=== PATIENT | female | born 1995 | race African-American/Black ===

== ENCOUNTER 2019-02-05 13:54 | Emergency (ER) | payer SELFPAY ==
--- OUTSIDE RECORDS SUMMARY | 2019-02-05 13:57 | XMS REPORT ---
:1995 [facility] Address [facility] [address] [place] [address] Care Team Providers Name Role Phone Unavailable Unavailable Unavailable Problems This patient has no known problems. Allergies, Adverse Reactions, Alerts This patient has no known allergies or adverse reactions. Medications This patient has no known medications.
[2019-02-05] MEDS ORDERED: LORazepam 2 MG/ML VIAL ONE (14:32)
[2019-02-05] MEDS ORDERED: NA CHLORIDE 0.9% 1,000 ML ONE (14:32)
[2019-02-05 15:09] LABS: Absolute Lymphocytes (CBC) 1.7 K/uL (0.7-4.9); Absolute Monocytes 0.3 K/uL (0.1-1.3); Absolute Neutrophil 3.7 K/uL (1.8-8.0); Basophils % 0.8 % (0-1.3); Eosinophils % 3.2 % (0-4.4); Hematocrit 36.7 % (36.0-45.0); Lymphocytes % 28.1 % (15.3-44.8); MPV 9.4 fL (7.6-11.3); Monocytes % 5.6 % (3.3-12.3); RBC Red Blood Cell Count 4.56 M/uL (3.86-4.86)
[2019-02-05 15:18] LABS: BUN Blood Urea Nitrogen 9 mg/dL (7-18); Bicarbonate 26 mmol/L (21-32); Glucose Level 78 mg/dL (74-106); Potassium 3.7 mmol/L (3.5-5.1); Sodium Level 139 mmol/L (136-145)
--- NOTE | 2019-02-05 17:42 | ER ---
Nurse's Notes [facility] Name: Taylor Rodriguez Age: 23 yrs Sex: Female : 1995 Arrival Date: 02/05/2019 Time: 13:59 Bed 4 Private MD: Diagnosis: Anxiety disorder, unspecified Presentation: 02/05 13:59 Presenting complaint: EMS states: Toned out for fibromyalgia attack, responsive to hb painful stimuli, R40s. Family on scene reports when her pain gets bad she goes unresponsive for 45-60 minutes. Transition of care: patient was not received from another setting of care. Onset of symptoms was February 05, 2019. Risk Assessment: Do you want to hurt yourself or someone else? Patient reports no desire to harm self or others. Initial Sepsis Screen: Does the patient meet any 2 criteria? No. Patient's initial sepsis screen is negative. Does the patient have a suspected source of infection? No. Patient's initial sepsis screen is negative. Care prior to arrival: None. 13:59 Method Of Arrival: EMS: [facility] 13:59 Acuity: MILAN 3 hb Historical: - Allergies: 14:03 No Known Allergies; hb - Home Meds: 14:03 Trazodone Oral [Active]; Zyprexa Oral [Active]; hb - PMHx: 14:03 Depression; Anxiety; hb - PSHx: 14:03 None; hb - Immunization history:: Adult Immunizations up to date. - Social history:: Smoking status: Patient/guardian denies using tobacco. - Ebola Screening: : No symptoms or risks identified at this time. - Family history:: not pertinent. - Hospitalizations: : No recent hospitalization is reported. Screenin:15 Tuberculosis screening: No symptoms or risk factors identified. hb 14:30 Fall Risk Total Jarrett Fall Scale indicates High Risk Score (45 or more points). Fall hb prevention measures have been instituted. Side Rails Up X 2 Frequent Obs/Assessments Occuring Family Present and informed to notify staff if the need to leave the bedside As available patient and family educated on Fall Prevention Program and Strategies. 15:09 Abuse screen: Denies threats or abuse. Denies injuries from another. Nutritional hb screening: No deficits noted. Assessment: 14:15 General: Appears in no apparent distress. Behavior is calm, cooperative. Pain: Pain hb currently is 8 out of 10 on a pain scale. Neuro: Level of Consciousness is awake, obeys commands, Oriented to person, place, time, situation. Cardiovascular: Heart tones S1 S2 present Capillary refill < 3 seconds Patient's skin is warm and dry. Respiratory: Airway is patent Respiratory effort is even, unlabored, Respiratory pattern is regular, symmetrical, Breath sounds are clear bilaterally. GI: No signs and/or symptoms were reported involving the gastrointestinal system. : No signs and/or symptoms were reported regarding the genitourinary system. EENT: No signs and/or symptoms were reported regarding the EENT system. Derm: Skin is intact, is healthy with good turgor, Skin is pink, warm \T\ dry. Musculoskeletal: No signs and/or symptoms reported regarding the musculoskeletal system. 15:00 Reassessment: Patient appears in no apparent distress at this time. No changes from previously documented assessment. Patient and/or family updated on plan of care and expected duration. Pain level reassessed. 16:10 Reassessment: Patient appears in no apparent distress at this time. Patient and/or hb family updated on plan of care and expected duration. Pain level reassessed. Patient is alert, oriented x 3, equal unlabored respirations, skin warm/dry/pink. Patient states feeling better. Patient states symptoms have improved. 16:58 Reassessment: Patient appears in no apparent distress at this time. Patient and/or hb family updated on plan of care and expected duration. Pain level reassessed. Patient is alert, oriented x 3, equal unlabored respirations, skin warm/dry/pink. 17:33 Reassessment: Patient appears in no apparent distress at this time. Patient and/or hb family updated on plan of care and expected duration. Pain level reassessed. Patient is alert, oriented x 3, equal unlabored respirations, skin warm/dry/pink. Vital Signs: 14:02 BP 119 / 79; Pulse 86; Resp 36; Temp 97.8; Pulse Ox 100% on R/A; Pain 0/10; hb 15:00 BP 136 / 95; Pulse 78; Resp 15; Pulse Ox 98% on R/A; hb 15:30 BP 147 / 102; Pulse 81; Resp 14; Pulse Ox 100% ; rv 16:40 BP 129 / 95; Pulse 85; Resp 15; Pulse Ox 100% on R/A; hb 17:32 BP 132 / 96; Pulse 84; Resp 15; Pulse Ox 100% on R/A; hb 14:02 Kristie (FACES) hb ED Course: 13:59 Patient arrived in ED. hb 14:01 Triage completed. hb 14:02 Moses Bell MD is Attending Physician. rn 14:02 Arm band placed on. hb 14:10 Patient has correct armband on for positive identification. Placed in gown. Bed in low hb position. Call light in reach. Side rails up X2. 14:25 Missed attempt(s): 22 gauge in left antecubital area. Bleeding controlled, band aid hb applied, catheter tip intact. 14:30 Missed attempt(s): 24 gauge in left hand. Bleeding controlled, band aid applied, hb catheter tip intact. 14:49 Allison Mcneill, RN is Primary Nurse. hb 15:05 EKG done, by ED staff, reviewed by Moses Bell MD. jp3 17:32 Straight cath inserted, using sterile technique, 16 Fr. Specimen obtained. Returned hb clear yellow urine. Patient tolerated well. 18:04 No provider procedures requiring assistance completed. IV discontinued, intact, hb bleeding controlled, No redness/swelling at site. Pressure dressing applied. Administered Medications: 14:49 Drug: NS 0.9% 1000 ml Route: IV; Rate: 1000 ml; Site: left wrist; hb 16:02 Follow up: Response: No adverse reaction; IV Status: Completed infusion; IV Intake: hb 1000ml 14:50 Drug: Ativan 1 mg Route: IVP; Site: left wrist; hb 15:30 Follow up: Response: No adverse reaction hb Intake: 16:02 IV: 1000ml; Total: 1000ml. hb 17:32 PO: 0ml; Total: 1000ml. hb Output: 17:32 Urine: 500ml (Straight Cath); Total: 500ml. hb Outcome: 17:41 Discharge ordered by . rn 18:04 Discharged to home ambulatory, with family. hb 18:04 Condition: stable 18:04 Discharge instructions given to patient, Instructed on discharge instructions, follow up and referral plans. Demonstrated understanding of instructions, follow-up care. 18:05 Patient left the ED. hb Signatures: Moses Bell MD MD rn Baxter, Heather, RN RN hb Vicente, Ronaldo, RN RN rv Shilo Villasenor jp3
--- NOTE | 2019-02-05 17:42 | EDPHYS ---
Physician Documentation [facility] Name: Taylor Rodriguez Age: 23 yrs Sex: Female : 1995 Arrival Date: 02/05/2019 Time: 13:59 Bed 4 Private MD: ED Physician Moses Bell HPI: 02/05 14:33 This 23 yrs old Black Female presents to ER via EMS with complaints of Fibromyalgia rn attack. 14:33 The patient presents with decreased responsiveness. Onset: The symptoms/episode rn began/occurred today. Possible causes: unknown. Current symptoms: In the emergency department the patient's symptoms have improved. The patient has experienced similar episodes in the past. Patient with self reported "fibromyalgia attack", was laying at home minimally responsive, someone called for ambulance, responds to painful stimuli, no seizure like activity noted. 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 Patient woke up for me, reports "pain all over", and generalized weakness, has had diarrhea lately, no vomiting or fever. Denies overdose or drug use.. Historical: - Allergies: 14:03 No Known Allergies; hb - Home Meds: 14:03 Trazodone Oral [Active]; Zyprexa Oral [Active]; hb - PMHx: 14:03 Depression; Anxiety; hb - PSHx: 14:03 None; hb - Immunization history:: Adult Immunizations up to date. - Social history:: Smoking status: Patient/guardian denies using tobacco. - Ebola Screening: : No symptoms or risks identified at this time. - Family history:: not pertinent. - Hospitalizations: : No recent hospitalization is reported. ROS: 14:33 Constitutional: Negative for fever, chills, and weight loss, Eyes: Negative for injury, rn pain, redness, and discharge, Neck: Negative for injury, pain, and swelling, Cardiovascular: Negative for chest pain, palpitations, and edema, Respiratory: Negative for shortness of breath, cough, wheezing, and pleuritic chest pain, Abdomen/GI: Negative for abdominal pain, nausea, vomiting, and constipation, MS/Extremity: Negative for injury and deformity, Skin: Negative for injury, rash, and discoloration, Neuro: Negative for headache, numbness, tingling, and seizure. Exam: 14:37 Constitutional: Overweight female, laying in bed peacefully, eyes moving in rotary rn fashion, no specific pattern or nystagmus, able to focus on me on command. Head/Face: Normocephalic, atraumatic. Eyes: Pupils equal round and reactive to light, extra-ocular motions intact. Lids and lashes normal. Conjunctiva and sclera are non-icteric and not injected. Cornea within normal limits. Periorbital areas with no swelling, redness, or edema. ENT: dry MM, no stridor Neck: Trachea midline, no thyromegaly or masses palpated, and no cervical lymphadenopathy. Supple, full range of motion without nuchal rigidity, or vertebral point tenderness. No Meningismus. Cardiovascular: Regular rate and rhythm. No pulse deficits. Respiratory: Lungs have equal breath sounds bilaterally, clear to auscultation. No increased work of breathing, no retractions or nasal flaring. Abdomen/GI: soft, non-tender Skin: Warm, dry. Normal color with no rashes, no lesions, and no evidence of cellulitis. MS/ Extremity: Pulses equal, no cyanosis. Neurovascular intact. Full, normal range of motion. Equal circumference. Neuro: Awake and alert, GCS 15, oriented to person, place, time, and situation. Cranial nerves II-XII grossly intact. Motor strength 4/5 in all extremities. Sensory grossly intact. Vital Signs: 14:02 BP 119 / 79; Pulse 86; Resp 36; Temp 97.8; Pulse Ox 100% on R/A; Pain 0/10; hb 15:00 BP 136 / 95; Pulse 78; Resp 15; Pulse Ox 98% on R/A; hb 15:30 BP 147 / 102; Pulse 81; Resp 14; Pulse Ox 100% ; rv 16:40 BP 129 / 95; Pulse 85; Resp 15; Pulse Ox 100% on R/A; hb 17:32 BP 132 / 96; Pulse 84; Resp 15; Pulse Ox 100% on R/A; hb 14:02 Kristie (FACES) hb MDM: 14:02 Patient medically screened. rn 17:39 Differential Diagnosis: hypoglycemia, UTI, volume depletion. Differential Diagnosis: rn electrolyte abnormality, pseudoseizure, behavioral problems.. Data reviewed: vital signs, nurses notes. Counseling: I had a detailed discussion with the patient and/or guardian regarding: the historical points, exam findings, and any diagnostic results supporting the discharge/admit diagnosis, lab results, the need for outpatient follow up, to return to the emergency department if symptoms worsen or persist or if there are any questions or concerns that arise at home. Response to treatment: the patient's symptoms have markedly improved after treatment, the patient's condition has returned to base line, the patient is now symptom free, patient is well hydrated. and as a result, I will discharge patient. Special discussion: I discussed with the patient/guardian in detail that at this point there is no indication for admission to the hospital. It is understood, however, that if the symptoms persist or worsen the patient needs to return immediately for re-evaluation. Special discussion: Based on the history and exam findings, there is no indication for further emergent testing or inpatient evaluation. I discussed with the patient/guardian the need to see the psychiatrist for further evaluation of the symptoms. ED course: Patient back to baseline, wide awake, family here, states has these episodes frequently and they are in middle of looking for a psychiatrist. . 02/05 14:09 Order name: CBC with Diff; Complete Time: 15:42 02/05 14:09 Order name: Basic Metabolic Panel; Complete Time: 15:42 02/05 14:09 Order name: Urine Microscopic Only 02/05 17:45 Order name: Urine Dipstick--Ancillary (enter results) 02/05 17:45 Order name: Urine --Ancillary (enter results) 02/05 14:09 Order name: IV Start; Complete Time: 15:05 rn 02/05 14:09 Order name: Urine Test (obtain specimen); Complete Time: 17:31 rn 02/05 14:09 Order name: Urine Dipstick-Ancillary (obtain specimen); Complete Time: 17:32 rn 02/05 14:09 Order name: EKG; Complete Time: 14:10 rn 02/05 14:09 Order name: EKG - Nurse/Tech; Complete Time: 15:05 rn 02/05 17:31 Order name: Straight Cath - Urine; Complete Time: 17:31 hb Administered Medications: 14:49 Drug: NS 0.9% 1000 ml Route: IV; Rate: 1000 ml; Site: left wrist; hb 16:02 Follow up: Response: No adverse reaction; IV Status: Completed infusion; IV Intake: hb 1000ml 14:50 Drug: Ativan 1 mg Route: IVP; Site: left wrist; hb 15:30 Follow up: Response: No adverse reaction hb Disposition: 02/05/19 17:41 Discharged to Home. Impression: Anxiety disorder, unspecified. - Condition is Stable. - Discharge Instructions: Myofascial Pain Syndrome and Fibromyalgia. - Medication Reconciliation Form, Thank You Letter, Antibiotic Education, Prescription Opioid Use form. - Follow up: Private Physician; When: As needed; Reason: Recheck today's complaints, Re-evaluation by your physician. - Problem is chronic. - Symptoms have improved. Signatures: Dispatcher [employer] EDMS Moses Bell MD MD rn Baxter, Heather, RN RN Corrections: (The following items were deleted from the chart) 14:39 14:37 Constitutional: Overweight female, laying in bed peacefully, eyes moving in rn rotary fashion, no specific pattern or nystagmus, able to focus on me on command. Head/Face: Normocephalic, atraumatic. Eyes: Pupils equal round and reactive to light, extra-ocular motions intact. Lids and lashes normal. Conjunctiva and sclera are non-icteric and not injected. Cornea within normal limits. Periorbital areas with no swelling, redness, or edema. ENT: dry MM, no stridor Neck: Trachea midline, no thyromegaly or masses palpated, and no cervical lymphadenopathy. Supple, full range of motion without nuchal rigidity, or vertebral point tenderness. No Meningismus. Cardiovascular: Regular rate and rhythm. No pulse deficits. Respiratory: Lungs have equal breath sounds bilaterally, clear to auscultation. No increased work of breathing, no retractions or nasal flaring. Abdomen/GI: soft, non-tender Skin: Warm, dry with normal turgor. Normal color with no rashes, no lesions, and no evidence of cellulitis. MS/ Extremity: Pulses equal, no cyanosis. Neurovascular intact. Full, normal range of motion. Equal circumference. Neuro: Awake and alert, GCS 15, oriented to person, place, time, and situation. Cranial nerves II-XII grossly intact. Motor strength 5/5 in all extremities. Sensory grossly intact. rn 18:05 17:41 02/05/2019 17:41 Discharged to Home. Impression: Anxiety disorder, unspecified. hb Condition is Stable. Forms are Medication Reconciliation Form, Thank You Letter, Antibiotic Education, Prescription Opioid Use. Follow up: Private Physician; When: As needed; Reason: Recheck today's complaints, Re-evaluation by your physician. Problem is chronic. Symptoms have improved. rn
[2019-02-05 18:30] VITALS: TEMP 97.8
[2019-02-05 18:33] VITALS: O2SAT 100
[2019-02-05 18:35] LABS: Urine Blood NEGATIVE (NEG); Urine Glucose NEGATIVE (NEG); Urine Protein NEGATIVE (NEG)
[2019-02-05 19:02] LABS: Urine Bacteria <20 /HPF (<20); Urine Culture Reflex Order NOT NEEDED; Urine Mucus SLIGHT /HPF (NONE SEEN); Urine RBC NONE SEEN /HPF (NONE SEEN)
[2019-02-05 23:37] VITALS: BP 132/96
--- NOTE | 2019-02-06 07:56 | EKG ---
Test Date: 2019-02-05 Test Time: 14:59:23 Chief Information Officer: RACHEAL MEASUREMENT RESULTS: Intervals: Rate: 81 ME: 156 QRSD: 84 QT: 392 QTc: 455 [place]: P: 30 ME: 156 QRS: 52 T: 7 INTERPRETIVE STATEMENTS: Normal sinus rhythm Normal ECG Compared to ECG 03/02/2017 19:23:42 No significant changes Electronically Signed On 02-06-19 07:52:59 CDT by Abraham Quiñones
== END 2019-02-05 18:05 | disposition home or self-care (01) ==
LOC: ER 13:54
DX: F41.9 Anxiety disorder, unspecified (principal)
CPT/HCPCS: 36415; 51702; 80048; 81003; 81015; 81025; 85025; 93005; 96361; 96374; 99284; J7030

== ENCOUNTER 2020-04-17 17:58 | Emergency (ER) | payer SELFPAY ==
--- OUTSIDE RECORDS SUMMARY | 2020-04-17 18:00 | XMS REPORT | Summary of Care ---
:1995 Author Organization [facility] Address [address] [place] [id number] Care Team Providers Name Role Phone JERRY Jansen Primary Care Provider Reason for Visit Reason Comments Results Encounter Details Date Type Department Care Team Description 02/14/2020 Telephone [facility] Cardiology- Shayla Monroe MD Results [place] [facility] [address] [facility], [address] [place] [address] [place] [address] [phone] Allergies Active Allergy Reactions Severity Noted Date Comments Naproxen Nausea and/or Vomiting 04/28/2019 documented as of this encounter (statuses as of 02/20/2020) Medications Medication Sig Dispensed Refills Start Date End Date Status DULOXETINE HCL (CYMBALTA Take 60 mg by 0 Active ORAL) mouth 3 (three) times daily. VITAMIN B COMPLEX ORAL Take by 0 Active mouth. aripiprazole (ABILIFY Take 5 mg by 0 Active ORAL) mouth 2 (two) times daily. traZODONE 100 mg tablet Take 100 mg 0 Active by mouth at bedtime. benztropine 1 mg tablet Take 1 mg by 0 Active mouth daily. ARIPiprazole 10 mg tablet Take 10 mg by 0 Active mouth 2 (two) times daily. hydroCHLOROthiazide 25 mg Take 1 tablet 30 tablet 5 09/29/2019 Active tabletIndications: by mouth Essential hypertension, daily. Bilateral lower extremity edema meloxicam 15 mg Take 1 tablet 30 tablet 5 09/29/2019 Active tabletIndications: by mouth Chronic pain syndrome daily. pregabalin (LYRICA) 150 Take 1 180 capsule 3 09/29/2019 Active mg capsuleIndications: capsule by Chronic pain syndrome mouth 2 (two) times daily. metoprolol succinate XL Take 1 tablet 60 tablet 2 10/24/2019 Active 50 mg 24 hr by mouth tabletIndications: daily. 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 COVID-19 Exposure Response Date Recorded In the last month, have you been in contact with No / Unsure 02/10/2020 8:58 AM CDT someone who was confirmed or suspected to have Coronavirus / COVID-19? documented as of this encounter Last Filed Vital Signs Not on filedocumented in this encounter Plan of Treatment Date Type Specialty Care Team Description 04/24/2020 Office Visit Gastroenterology Annemarie Valladares, ACNP [address] [facility] [address] [place] [address] [phone] Health Maintenance Due Date Last Done Comments VARICELLA VACCINES (1 of 2 - 1994 2-dose childhood series) DTaP,Tdap,and Td Vaccines (1 - 2004 Tdap) HPV VACCINES (1 - Female 2-dose 2004 series) PAP SMEAR 2014 Depression Screening 09/29/2020 09/29/2019 INFLUENZA VACCINE (Season Ended) 2020 Postponed from 05/01/2020 (Refused) PNEUMOCOCCAL 0-64 YEARS COMBINED Aged Out No longer eligible based on SERIES patient's age to complete this topic documented as of this encounter Goals Goal Patient Goal Associated Recent Patient-Stated? Author Type Problems Progress To get better General Yes Maranda Sullivan, PT documented as of this encounter Results Not on filedocumented in this encounter Insurance Payer Benefit Plan Subscriber ID Effective Phone Address Typ e / Group Dates ROSY GALLEGOS [id number] 2016-Pres [phone] [facility] [address] [place] [address] [place] [place] [id number] 2016-Prese [phone] [facility] [address] [place] [address] [place] [place] [id number] 2020-Prese [phone] [facility] [address] [place] [address] documented as of this encounter
--- OUTSIDE RECORDS SUMMARY | 2020-04-17 18:00 | XMS REPORT | Summary of Care ---
:1995 Author Organization [facility] - [facility] Address [address] [place] [address] Care Team Providers Name Role Phone JERRY Jansen Primary Care Provider Reason for Visit Reason Comments Follow-up (Routine) Status Reason Specialty Diagnoses / Procedures Referred By C ontact Referred To Contact Closed Cardiology Diagnoses Palpitations Essential hypertension Tachycardia Morbid obesity Kalani Jansen FNP Procedures CONSULT/REFERRAL CARDIOLOGY [address] [place], [place] [address] Phone: Encounter Details Date Type Department Care Team Description 01/24/2020 Telemedicine Visit [facility] Dannie Monroe Essenti al hypertension (Primary Dx); Cardiology- MD Palpitations; [address] Morbid obesity [address] [facility], [address] [place] [address] [phone] Allergies Active Allergy Reactions Severity Noted Date Comments Naproxen Nausea and/or Vomiting 04/28/2019 documented as of this encounter (statuses as of 01/24/2020) Medications Medication Sig Dispensed Refills Start Date [...] as of this encounter (statuses as of 01/24/2020) Active Problems Problem Noted Date PTSD (post-traumatic stress disorder) 08/19/2018 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 documented as of this encounter Last Filed Vital Signs Not on filedocumented in this encounter Progress Notes Dannie Monroe MD - 01/24/2020 10:40 AM CDT CARDIOLOGY CLINIC NOTE 01/24/2020 Reason for Referral/Presenting Complaint: palpitations PCP: Kalani Jansen History of Present Illness: Taylor Rodriguez is a 24 years old female with history of morbid obesity and HTN. She has been having episodes of palpitations for over a year which has worsened recently. She woke up a few days ago with fast heart beat lasting 10 mins. Mild chest pain. Milder palpitations have beenoccurring about once a month. Some dizziness. Those episodes are abrupt onset with gradual offset. TSH was low in 2018. Last visit we increased Toprol XL to 50 mg daily. She has brief episodes of palpitations lasting seconds. Sometimes feels anxious. ECHO was not done yet. Cardiovascular testing: EKG: Normal sinus rhythm. Normal EKG. Review of Systems: General: (-) fever, (-) chills, (-) weight change, (-) dizziness, (-) fatigue Skin: (-) rash HEENT: (-) headache, (-) change in vision Neck: (-) difficulty swallowing Heme: negative Resp: (-) cough, (-) dyspnea on exertion Cardio: (-) chest pain, (+) palpitations, (-) syncope GI: (-) vomiting, (-) diarrhea : negative Endo: (-) diabetes, (-) thyroid disease Neuro: (-) numbness, (-) tingling, (-) weakness Back: (-) pain ROCHELLE: (-) muscle pain, (-) claudication Psych: (-) anxiety, (-) depression Past Medical History: Past Medical History: Diagnosis Date Depression Manic depression Schizophrenia Current Medications: Current Outpatient Medications Medication Sig Dispense Refill metoprolol succinate XL 50 mg 24 hr tablet Take 1 tablet by mouth daily. 60 tablet 2 hydroCHLOROthiazide 25 mg tablet Take 1 tablet by mouth daily. 30 tablet 5 meloxicam 15 mg tablet Take 1 tablet by mouth daily. 30 tablet 5 pregabalin (LYRICA) 150 mg capsule Take 1 capsule by mouth 2 (two) times daily. 180 capsule 3 ARIPiprazole 10 mg tablet Take 10 mg by mouth 2 (two) times daily. benztropine 1 mg tablet Take 1 mg by mouth daily. traZODONE 100 mg tablet Take 100 mg by mouth at bedtime. aripiprazole (ABILIFY ORAL) Take 5 mg by mouth 2 (two) times daily. DULOXETINE HCL (CYMBALTA ORAL) Take 60 mg by mouth 3 (three) times daily. VITAMIN B COMPLEX ORAL Take by mouth. No current facility-administered medications for this visit. Social History: Social History Socioeconomic History Marital status: Single Spouse name: Not on file Number of children: Not on file Years of education: Not on file Highest education level: Not on file Occupational History Not on file Social Needs Financial resource strain: Not on file Food insecurity: Worry: Not on file Inability: Not on file Transportation needs: Medical: Not on file Non-medical: Not on file Tobacco Use Smoking status: Former Smoker Years: 5.00 Types: Cigarettes Smokeless tobacco: Never Used Tobacco comment: Quit smoking/vaping earlier this year Substance and Sexual Activity Alcohol use: Yes Alcohol/week: 0.0 standard drinks Comment: drnk liquor or beer a lot recently Drug use: No Sexual activity: Not on file Lifestyle Physical activity: Days per week: Not on file Minutes per session: Not on file Stress: Not on file Relationships Social connections: Talks on phone: Not on file Gets together: Not on file Attends druze service: Not on file Active member of club or organization: Not on file Attends meetings of clubs or organizations: Not on file Relationship status: Not on file Intimate partner violence: Fear of current or ex partner: Not on file Emotionally abused: Not on file Physically abused: Not on file Forced sexual activity: Not on file Other Topics Concern Not on file Social History Narrative Not on file Family History No family history on file. Physical Examination: Constitutional: Alert and in no distress Respiratory: Breathing comfortably Neurology: Answers questions appropriately Assessment/Plan: ICD-10-CM ICD-9-CM 1. Essential hypertension I10 401.9 2. Palpitations R00.2 785.1 3. Morbid obesity E66.01 278.01 Palpitations--due to insurance limitations, cannot get Heart monitor. We increased metoprolol XL to 50 mg daily. Seems better controlled. Avoid caffeine/alcohol. Will get ECHO to assess structural heart disease. HTN--well controlled with HCTZ and metoprolol. Low salt diet. Morbid obesity--suspect MADHAV but cannot afford sleep study. Advised to lose weight. Patient was counseled for lifestyle modifications including: diet, exercise and weight loss. Telehealth service ? Verbal consent obtained from patient Taylor Lexi Rodriguez for telehealth sevice provided ? My location: [facility] cardiology clinic ? Patient location: Home ? Format: Communication with patient was conducted via Telephone due to patient unable to obtain video call option--Doximity video call link sent ? A total of 15 minutes spent on the telephone with the patient/chart review/documentation Dannie Monroe MD, FACC, [place] Dispatcher Service Or Work, Division of Cardiology [facility] documented in this encounter Plan of Treatment Date Type Specialty Care Team Description 04/24/2020 Office Visit Gastroenterology Annemarie Valladares, [facility] [address] [facility] [address] [place] [address] [phone] Health Maintenance Due Date Last Done Comments VARICELLA VACCINES (1 of 2 - 1994 2-dose childhood series) DTaP,Tdap,and Td Vaccines (1 - 2004 Tdap) HPV VACCINES (1 - Female 2-dose 2004 series) PAP SMEAR 2014 INFLUENZA VACCINE (Season Ended) 2020 Postponed from 05/01/2020 (Refused) PNEUMOCOCCAL 0-64 YEARS COMBINED Aged Out No longer eligible based on SERIES patient's age to complete this topic documented as of this encounter Goals Goal Patient Goal Associated Recent Patient-Stated? Author Type Problems Progress To get better General Yes Maranda Sullivan, PT documented as of this encounter Results Not on filedocumented in this encounter Visit Diagnoses Diagnosis Essential hypertension - Primary Unspecified essential hypertension Palpitations Morbid obesity documented in this encounter Insurance Payer Benefit Plan Subscriber ID Effective Phone Address Typ e / Group Dates [place] [id number] 2016-Martina [phone] [facility] [address] [place] [address] documented as of this encounter
--- OUTSIDE RECORDS SUMMARY | 2020-04-17 18:00 | XMS REPORT | Continuity of Care Document ---
:1995 Author Organization [facility] t Address [address] [place] [address] Care Team Providers Name Role Phone Care, Primary Attending Clinician Unavailable Doctor Unassigned, Name Attending Clinician Unavailable Problems This patient has no known problems. Allergies, Adverse Reactions, Alerts This patient has no known allergies or adverse reactions. Medications This patient has no known medications. Procedures This patient has no known procedures. Encounters Start End Encounter Admission Attending Care Care Encounter Source Date/Time Date/Time Type Type Clinicians Facility Department ID 2020-03-08 2020-03-20 Office Care, Aries GALLEGOS [id number] 10:02:59 09:15:53 Visit [facility] [id number] [facility] [id number] UNIT [id number] 2020-03-08 2020-03-08 Orders Doctor PRIETO [id number] 00:00:00 00:00:00 Only Unassigned, [place] [id number] Howard [facility] [id number] Results This patient has no known results.
--- OUTSIDE RECORDS SUMMARY | 2020-04-17 18:00 | XMS REPORT | Summary of Care ---
:1995 Author Organization [facility] - [facility] Address [address] [place] [address] Care Team Providers Name Role Phone JERRY Jansen Primary Care Provider Encounter Details Date Type Department Care Team Description 02/10/2020 Orders Only [facility] Doctor Unassigned, No [address] [facility] [place] [address] [address] [place] [id number] Allergies Active Allergy Reactions Severity Noted Date Comments Naproxen Nausea and/or Vomiting 04/28/2019 documented as of this encounter (statuses as of 02/10/2020) Medications Medication Sig Dispensed Refills Start Date [...] as of this encounter (statuses as of 02/10/2020) Active Problems Problem Noted Date PTSD (post-traumatic stress disorder) 08/19/2018 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/2017 Pain 06/11/2017 Fine motor impairment 06/11/2017 Conversion disorder 05/14/2017 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 documented as of this encounter (statuses as of 02/10/2020) Social History Tobacco Use Types Packs/Day Years Used Date Former Smoker Cigarettes 5 Smokeless Tobacco: Never Used Comments: Quit smoking/vaping earlier th is year Alcohol Use Drinks/Week oz/Week Comments [...] Treatment Date Type Specialty Care Team Description 02/10/2020 Appointment Echocardiograph Pc, Adc Echo-Vascular Sofia m 1 - 04/24/2020 Office Visit Gastroenterology Annemarie Valladares, ACNP [address] [facility] [address] [place] [address] [phone] Health Maintenance Due Date Last Done Comments [...] Sullivan, PT documented as of this encounter Procedures Procedure Name Priority Date/Time Associated Diagnosis Comme nts ASSIGNMENT OF BENEFITS Routine 02/10/2020 8:57 AM CDT documented in this encounter Results Not on filedocumented in this encounter Insurance Payer Benefit Plan Subscriber ID Effective Phone Address Typ e / Group Dates ROSY GALLEGOS [id number] 2016-Pres [phone] [facility] [address] [place] [address] [place] [id number] 2016-Prese [phone] [facility] [address] [place] [address] [place] [id number] 2020-Prese [phone] [facility] [address] [place] [address] documented as of this encounter
--- OUTSIDE RECORDS SUMMARY | 2020-04-17 18:01 | XMS REPORT | Summary of Care ---
:1995 Author Organization [facility] Address [address] [place] [address] Care Team Providers Name Role Phone JERRY Jansen Primary Care Provider Reason for Visit Reason Comments Lab Results Encounter Details Date Type Department Care Team Description 03/13/2020 Telephone [facility] Kalani Ambrocio FNP Lab Results [facility] 301 [facility] 260 [facility], [facility] [address] [place] [address] [place] [address] Allergies Active Allergy Reactions Severity Noted Date Comments Naproxen Nausea and/or Vomiting 04/28/2019 documented as of this encounter (statuses as of 03/13/2020) Medications Medication Sig Dispensed Refills Start Date [...] 0 Active mouth 2 (two) times daily. meloxicam 15 mg Take 1 tablet 30 tablet 5 09/29/2019 Active tabletIndications: by mouth Chronic pain syndrome daily. pregabalin (LYRICA) 150 Take 1 180 capsule 3 09/29/2019 Active mg capsuleIndications: capsule by Chronic pain syndrome mouth 2 (two) times daily. metoprolol succinate XL Take 1 tablet 60 tablet 2 03/08/2020 Active 50 mg 24 hr by mouth tabletIndications: daily. Essential hypertension, Tachycardia hydroCHLOROthiazide 25 mg Take 1 tablet 30 tablet 5 03/08/2020 Active tabletIndications: by mouth Essential hypertension, daily. Bilateral lower extremity edema baclofen 10 mg Take 1 tablet 60 tablet 2 03/08/2020 Active tabletIndications: by mouth 3 Derangement of left knee (three) times daily as needed for Pain (scale 4-6). 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 documented as of this encounter Last Filed Vital Signs Not on filedocumented in this encounter Plan of Treatment Date Type Specialty Care Team Description 04/24/2020 Office Visit Gastroenterology Annemarie Valladares, YAAKOV [address] [facility] [address] [place] [address] [phone] Health Maintenance Due Date Last Done Comments VARICELLA VACCINES (1 of 2 - 1994 2-dose childhood series) DTaP,Tdap,and Td Vaccines (1 - 2004 Tdap) HPV VACCINES (1 - Female 2-dose 2004 series) PAP SMEAR 2014 Depression Screening 09/29/2020 09/29/2019 INFLUENZA VACCINE (#1) 2020 Postponed from 05/01/2020 (Refused) PNEUMOCOCCAL 0-64 [...] Typ e / Group Dates ROSY GALLEGOS [id number] 2016-Pres [phone] [facility]IMARY CARE PRIMARY CARE ent [address] [place] [address] [place] [id number] 2016-Prese [phone] [facility] [address] [facility] [address] [place] [address] [place] [id number] 2020-Prese [phone] [facility] [address] [facility] [address] [place] [address] documented as of this encounter
--- OUTSIDE RECORDS SUMMARY | 2020-04-17 18:01 | XMS REPORT | Summary of Care ---
:1995 Author Organization [facility] Address [address] [place], [place] [address] Care Team Providers Name Role Phone JERRY Jansen Primary Care Provider Reason for Referral (Routine) Status Reason Specialty Diagnoses / Procedures Referred By Gracia weir To Contact Contact New Request Gastroenterology Diagnoses Lower abdominal pain Kalani Jansen, Procedures CONSULT/REFERRAL GASTROENTEROLOGY [place] [phone] Reason for Visit Reason Comments Referral/consult Encounter Details Date Type Department Care Team Description 02/29/2020 [facility]phone [facility] Ref[facility]/consult [address] [place] [address] [place] [address] [phone] Allergies Active Allergy Reactions Severity Noted Date Comments Naproxen Nausea and/or Vomiting 04/28/2019 documented as of this encounter (statuses as of 02/29/2020) Medications Medication Sig Dispensed Refills Start Date [...] as of this encounter (statuses as of 02/29/2020) Active Problems Problem Noted Date PTSD (post-traumatic stress disorder) 08/19/2018 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/2017 Pain 06/11/2017 Fine motor impairment 06/11/2017 Conversion disorder 05/14/2017 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 documented as of this encounter (statuses as of 02/29/2020) Social History Tobacco Use Types Packs/Day Years [...] 04/24/2020 Office Visit Gastroenterology Annemarie Valladares, ACNP [address] [facility] [address] [place] [address] [phone] Health Maintenance Due Date Last Done Comments [...] filedocumented in this encounter Visit Diagnoses Diagnosis Lower abdominal pain - Primary Abdominal pain, other specified site documented in this encounter Insurance Payer Benefit Plan Subscriber ID Effective Phone Address Typ e / Group Dates ROSY GALLEGOS [id number] 2016-Pres [phone] [facility] PRIMARY CARE ent [address] [place] [address] [place] [id number] 2016-Prese [phone] [facility] [address] [place] [address] [place] [id number] 2020-Prese [phone] [facility] [address] [facility] [address] [place] [address] documented as of this encounter
--- OUTSIDE RECORDS SUMMARY | 2020-04-17 18:01 | XMS REPORT | Summary of Care ---
:1995 Author Organization [facility] Address [address] [place] [address] Care Team Providers Name Role Phone JERRY Jansen Primary Care Provider Reason for Visit Reason Comments Lab Results Encounter Details Date Type Department Care Team Description 03/13/2020 Telephone [facility] Kalani Ambrocio FNP Lab Results 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 [id number] 2016-Prese [phone] [facility] [address] [facility] [address] [place] [address] [place] [id number] 2020-Prese [phone] [facility] [address] [facility] [address] [place] [address] documented as of this encounter
--- OUTSIDE RECORDS SUMMARY | 2020-04-17 18:01 | XMS REPORT | Summary of Care ---
:1995 Author Organization [facility] Address [address] [place] [address] Care Team Providers Name Role Phone JERRY Jansen Primary Care Provider Reason for Referral (Routine) Status Reason Specialty Diagnoses / Referred By Referred To Procedures Contact Contact New Request Orthopedic Surgery Diagnoses Derangement of left knee Adhesive capsulitis of left shoulder Kalani Jansen, Procedures CONSULT/REFERRAL ORTHOPAEDIC SURGERY CONSULT/REFERRAL ORTHOPAEDIC SURGERY [facility] [address] [place] [address] Radiology Services (Routine) Status Reason Specialty Diagnoses / Referred By Referred To Procedures Contact Contact New Request Diagnostic Diagnoses Derangement of left knee Kalani Jansen, Radiology Procedures XR KNEE 3 VW LEFT [facility] [address] [place] [address] Reason for Visit Reason Comments Chest Pain Knee Pain Bilateral (L>R) Shoulder Pain Left Encounter Details Date Type Department Care Team Description 03/08/2020 Office Visit [facility] Kalani De Souza , NEWS CAMERA PERSON [address] [place], [place] [address] Derangement of left knee (Primary Dx); [facility] Primary Adhesive capsulitis of left shoulder; Clinic Essential hypertension; [address] Tachycardia; [place], [place] Bilateral lower extremity edema [id number] Allergies Active Allergy Reactions Severity Noted Date Comments Naproxen Nausea and/or Vomiting 04/28/2019 documented as of this encounter (statuses as of 03/08/2020) Medications Medication Sig Dispensed Refills Start End Status Date Date DULOXETINE HCL Take 60 mg 0 Acti ve (CYMBALTA ORAL) by mouth 3 (three) times daily. VITAMIN B COMPLEX ORAL Take by 0 Active mouth. aripiprazole (ABILIFY Take 5 mg 0 Active ORAL) by mouth 2 (two) times daily. traZODONE 100 mg tablet Take 100 mg 0 Active by mouth at bedtime. benztropine 1 mg tablet Take 1 mg 0 Active by mouth daily. ARIPiprazole 10 mg Take 10 mg 0 Active tablet by mouth 2 (two) times daily. meloxicam 15 mg Take 1 30 tablet 5 Acti ve tabletIndications: tablet by 0 Chronic pain syndrome mouth daily. pregabalin (LYRICA) 150 Take 1 180 capsule 3 Active mg capsuleIndications: capsule by 0 Chronic pain syndrome mouth 2 (two) times daily. metoprolol succinate XL Take 1 60 tablet 2 Active 50 mg 24 hr tablet by 0 tabletIndications: mouth Essential hypertension, daily. Tachycardia hydroCHLOROthiazide 25 Take 1 30 tablet 5 Active mg tabletIndications: tablet by 0 Essential hypertension, mouth Bilateral lower daily. extremity edema baclofen 10 mg Take 1 60 tablet 2 Activ e tabletIndications: tablet by 0 Derangement of left mouth 3 knee (three) times daily as needed for Pain (scale 4-6). hydroCHLOROthiazide 25 Take 1 30 tablet 5 Discontinued mg tabletIndications: tablet by 0 020 (Reorder) Essential hypertension, mouth Bilateral lower daily. extremity edema metoprolol succinate XL Take 1 60 tablet 2 Discontinued 50 mg 24 hr tablet by 0 020 (Reorder ) tabletIndications: mouth Essential hypertension, daily. 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 documented as of this encounter (statuses as of 03/08/2020) Social History Tobacco Use Types Packs/Day Years [...] of this encounter Last Filed Vital Signs Vital Sign Reading Time Taken Comments Blood Pressure 108/69 03/08/2020 10:04 AM CDT Pulse 74 03/08/2020 10:04 AM CDT Temperature 36.6 C (97.9 F) 03/08/2020 10:04 AM CDT Respiratory Rate 20 03/08/2020 10:04 AM CDT Oxygen Saturation - - Inhaled Oxygen Concentration - - Weight 112.6 kg (248 lb 3.2 oz) 03/08/2020 10:04 AM CDT Height 160 cm (5' 3") 03/08/2020 10:04 AM CDT Body Mass Index 43.97 03/08/2020 10:04 AM CDT documented in this encounter Progress Notes Kalani Jansen FNP - 03/08/2020 10:00 AM CDT Cc: Chief Complaint Patient presents with Chest Pain Knee Pain Left Shoulder Pain Left HPI Taylor Lexi Rodriguez is a 24 year old female in clinic today needing refills on her medications and complaining of left shoulder and knee pain post fall x2 over the last couple of weeks. On the last fall, she dropped the pizza she was putting in the oven, contusing the left shoulder. Has history of both shoulder and knee pain with previous steroid injection to the left knee in 2018 and PT for theleft shoulder and knee in late 2018. Still having intermittent sternal pain which is sharp and transient lasting from a few seconds to a couple of minutes. Usually occurs when she is reaching out to push or pull something. Seen by Dr Monroe in [facility] in October this year. ECHO and EKG was normal. Palpitations are under control with the BB. B/P 100/69 with rate of 74 bpm today in clinic. Peripheral swelling controlled. Is now working 9 hours at a shift, 3 days a wk, which is a great improvement from 3 hours a shift 2-3 days a week. Over all much more alert and able to give a good history Denies fevers or chills. Allergies Taylor is allergic to naproxen. Medications Outpatient Medications Prior to Visit Medication Sig Dispense Refill metoprolol succinate XL [...] B COMPLEX ORAL Take by mouth. No facility-administered medications prior to visit. Histories Past Medical History: Diagnosis Date Depression Manic depression Schizophrenia No past surgical history on file. Social History Socioeconomic History Marital status: Single [...] file Gets together: Not on file Attends gnosticist service: Not on file Active member of [...] file Social History Narrative Not on file No family history on file. Review of Systems Constitutional: Negative. Eyes: Negative. Cardiovascular: Positive for chest pain. Negative for palpitations and leg swelling. Genitourinary: Negative. Musculoskeletal: Positive for arthralgias, back pain and gait problem. Skin: Negative. Psychiatric/Behavioral: Negative. Vital Signs BP 108/69 (BP Location: Left arm, Patient Position: Sitting) | Pulse 74 | Temp 36.6 C (97.9 F)(Oral) | Resp 20 | Ht 5' 3" (1.6 m) | Wt 248 lb 3.2 oz (112.6 kg) | BMI 43.97 kg/m Physical Exam Constitutional: She is oriented to person, place, and time. She appears well- developed and well-nourished. No distress. Cardiovascular: Normal rate, regular rhythm and normal heart sounds. Pulmonary/Chest: Effort normal and breath sounds normal. Musculoskeletal: Left shoulder: She exhibits decreased range of motion and tenderness. She exhibits no crepitus and no deformity. Left knee: She exhibits decreased range of motion. Tenderness found. Lateral joint line tenderness noted. Neurological: She is alert and oriented to person, place, and time. Skin: Skin is dry and intact. Psychiatric: Her speech is normal and behavior is normal. Judgment and thought content normal. Cognition and memory are normal. Nursing note and vitals reviewed. Assessment/Plan 1. Derangement of left knee - XR KNEE 3 VW LEFT; Future - baclofen 10 mg tablet; Take 1 tablet by mouth 3 (three) times daily as needed for Pain (scale 4-6). Dispense: 60 tablet; Refill: 2 - CONSULT/REFERRAL ORTHOPAEDIC SURGERY 2. Adhesive capsulitis of left shoulder - CONSULT/REFERRAL ORTHOPAEDIC SURGERY 3. Essential hypertension - metoprolol succinate XL 50 mg 24 hr tablet; Take 1 tablet by mouth daily. Dispense: 60 tablet; Refill: 2 - hydroCHLOROthiazide 25 mg tablet; Take 1 tablet by mouth daily. Dispense: 30 tablet; Refill: 5 4. Tachycardia - metoprolol succinate XL 50 mg 24 hr tablet; Take 1 tablet by mouth daily. Dispense: 60 tablet; Refill: 2 5. Bilateral lower extremity edema - hydroCHLOROthiazide 25 mg tablet; Take 1 tablet by mouth daily. Dispense: 30 tablet; Refill: 5 Fasting labs done CBC, CMP, A1C, TSH, VIT D, CRP Follow up 6 months or prn Appropriate plan of care, desired health behaviors, goals and medications discussed with patient andeducational resources and self-management tools provided, as applicable. Patient/family/guardian voice understanding. Barriers to adherence: none Ability to manage care: Good As necessary, prescribed medications and potential significant medication side effects or medicationinteractions were discussed with the patient and pt will let me know if any occur. Call or return to clinic prn if these symptoms worsen or fail to improve as anticipated. Call or report to ER if symptoms should symptoms progress or worsen. AVS reviewed and given to patient at conclusion of visit. The patient indicates understanding of these issues and agrees with the plan. Kalani [facility] . Lolly Guerrero LVN - 03/08/2020 10:00 AM CDTChstan Lexi Rodriguez is a 24 year old female Patient here today for chest pain, left knee/ shoulder pain. Reports 8 pain on scale 0/10, MD notified. Reviewed medications and allergies with patient today. Fall Risk Assessment/Screening performed with patient today and patient is at risk for falls. documented in this encounter Plan of Treatment Date Type Specialty Care Team Description 04/24/2020 Office Visit Gastroenterology Annemarie Valladares ACNP [address] [facility] [address] [place] [address] [phone] Name Type Priority Associated Diagnoses Order S chedule XR KNEE 3 VW LEFT IMAGING Routine Derangement of left kne e Expected: 03/08/2020, Expires: 2020 Health Maintenance Due Date Last Done Comments [...] filedocumented in this encounter Visit Diagnoses Diagnosis Derangement of left knee - Primary Unspecified internal derangement of knee Adhesive capsulitis of left shoulder Adhesive capsulitis of shoulder Essential hypertension Unspecified essential hypertension Tachycardia Tachycardia, unspecified Bilateral lower extremity edema Edema documented in this encounter Insurance Payer Benefit Plan / Subscriber ID Effective Phone Address T e Group Dates ROSY GALLEGOS [id number] 2016-Pres [phone] [facility] PRIMARY CARE ent [address] [place] [address] documented as of this encounter
--- OUTSIDE RECORDS SUMMARY | 2020-04-17 18:01 | XMS REPORT | Summary of Care ---
:1995 Author Organization [facility] Address [address] [place] [address] Care Team Providers Name Role Phone JERRY Jansen Primary Care Provider Reason for Referral (Routine) Status Reason Specialty Diagnoses / Referred By Referred To Procedures Contact Contact New Request Orthopedic Surgery Diagnoses Derangement of left knee Adhesive capsulitis of left shoulder Kalani Jansen, Procedures CONSULT/REFERRAL ORTHOPAEDIC SURGERY CONSULT/REFERRAL ORTHOPAEDIC SURGERY [facility] [address] [place] [address] Radiology Services (Routine) Status Reason Specialty Diagnoses / Referred By Referred To Procedures Contact Contact New Request Diagnostic Diagnoses Derangement of left knee Kalani Jansen, Radiology Procedures XR KNEE 3 VW LEFT [facility] [address] [place] [address] Reason for Visit Reason Comments Chest Pain Knee Pain Bilateral (L>R) Shoulder Pain Left Encounter Details Date Type Department Care Team Description 03/08/2020 Office Visit [facility] Kalani De Souza , SUCTION PLATE CARRIER CLEANER [address] [place], [place] [address] Derangement of left knee (Primary Dx); [facility] Primary Adhesive capsulitis of left shoulder; Clinic Essential hypertension; [address] Tachycardia; [place] Bilateral lower extremity edema [id number] Allergies [...] (post-traumatic stress disorder) 08/19/2018 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 Kalani [facility] . Lolly Guerrero LVN - [...] Office Visit Gastroenterology Annemarie Valladares ACNP [address] [facility] [address] [place] [address] [phone] Name Type Priority Associated Diagnoses Order S [...] Address T e Group Dates ROSY GALLEGOS [id number] 2016-Pres [phone] PRIMARY CARE PRIMARY CARE ent [address] [place] [address] documented as of this encounter
--- OUTSIDE RECORDS SUMMARY | 2020-04-17 18:01 | XMS REPORT | Summary of Care ---
:1995 Author Organization [facility] Address [address] [place] [address] Care Team Providers Name Role Phone JERRY Jansen Primary Care Provider Reason for Referral (Routine) Status Reason Specialty Diagnoses / Referred By Referred To Procedures Contact Contact New Request Orthopedic Surgery Diagnoses Derangement of left knee Adhesive capsulitis of left shoulder Kalani Jansen, Procedures CONSULT/REFERRAL ORTHOPAEDIC SURGERY CONSULT/REFERRAL ORTHOPAEDIC SURGERY [facility] [address] [place] [address] Radiology Services (Routine) Status Reason Specialty Diagnoses / Referred By Referred To Procedures Contact Contact New Request Diagnostic Diagnoses Derangement of left knee Kalani Jansen, Radiology Procedures XR KNEE [address] [facility] [address] [place] [address] Reason for Visit Reason Comments Chest Pain Knee Pain Bilateral (L>R) Shoulder Pain Left Encounter Details Date Type Department Care Team Description 03/08/2020 Office Visit [facility] Kalani De Souza , FLUORESCENT LAMP REPLACER [address] [place], [place] [address] Derangement of left knee (Primary Dx); [facility] Primary Adhesive capsulitis of left shoulder; Clinic Essential hypertension; [address] Tachycardia; [place], [place] Bilateral lower extremity edema [id number] Allergies Active [...] (post-traumatic stress disorder) 08/19/2018 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 Kalani [facility] . Lolly Guerrero LVN - 03/08/2020 10:00 [...] Office Visit Gastroenterology Annemarie Valladares ACNP [address] [facility] [address] [place] [address] [phone] Name Type Priority Associated Diagnoses Order S [...] Address T e Group Dates ROSY GALLEGOS [id number] 2016-Pres [phone] PRIMARY CARE PRIMARY CARE ent [address] [place] [address] documented as of this encounter
--- OUTSIDE RECORDS SUMMARY | 2020-04-17 18:02 | XMS REPORT | Summary of Care ---
:1995 Author Organization [facility] - Health Address [address] [place] [address] Care Team Providers Name Role Phone JERRY Jansen Primary Care Provider Encounter Details Date Type Department Care Team Description 03/08/2020 Orders Only [facility] Doctor Unassigned, No [address] [facility] [place] [address] [address] [place] [id number] Allergies Active Allergy Reactions Severity Noted Date Comments Naproxen Nausea and/or Vomiting 04/28/2019 documented as of this encounter (statuses as of 03/30/2020) Medications Medication Sig Dispensed Refills Start Date [...] as of this encounter (statuses as of 03/30/2020) Active Problems Problem Noted Date PTSD (post-traumatic stress disorder) 08/19/2018 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/2017 Pain 06/11/2017 Fine motor impairment 06/11/2017 Conversion disorder 05/14/2017 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 documented as of this encounter (statuses as of 03/30/2020) Social History Tobacco Use Types Packs/Day Years [...] Description 04/24/2020 Office Visit Gastroenterology Annemarie Valladares, ACN [address] [facility] [address] [place] [address] [phone] 05/01/2020 Office Visit Orthopedic Surgery Siddharth Jackson MD [address] [place], [place] [address] Health Maintenance Due Date Last Done Comments [...] Name Priority Date/Time Associated Diagnosis Comme nts SCANNED LAB RESULTS Routine 03/08/2020 12:01 AM CDT documented in this encounter Results SCANNED LAB RESULTS (03/08/2020 12:01 AM CDT) Specimen Performing Organization Address City/State/Zipcode Phone Number HIM documented in this encounter Insurance Payer Benefit Plan Subscriber ID Effective Phone Address Typ e / Group Dates ROSY GALLEGOS [id number] 2016-Pres [phone] PRIMARY CARE PRIMARY CARE ent [address] [place] [address] [place] [id number] 2016-Prese [phone] [facility] [address] [place] [address] [place] [id number] 2020-Prese [phone] [facility] [address] [place] [address] documented as of this encounter
--- OUTSIDE RECORDS SUMMARY | 2020-04-17 18:02 | XMS REPORT | Summary of Care ---
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 [address] [place] [address] (Routine) Status Reason Specialty Diagnoses / Referred By Referred To Procedures Contact Contact New Request Orthopedic Surgery Diagnoses Derangement of left knee Adhesive capsulitis of left shoulder Kalani Jansen, Procedures CONSULT/REFERRAL ORTHOPAEDIC SURGERY CONSULT/REFERRAL ORTHOPAEDIC SURGERY TEACHER ADVISOR [address] [place] [address] Radiology Services (Routine) Status Reason Specialty Diagnoses / Referred By Referred To Procedures Contact Contact Closed Diagnostic Diagnoses Derangement of left knee Derangement of left knee Kalani Jansen FNP Radiology Procedures XR KNEE 3 VW LEFT XR KNEE 3 VW LEFT [address] [place] [address] Reason for Visit Reason Comments Chest Pain Knee Pain Bilateral (L>R) Shoulder Pain Left Encounter Details Date Type Department Care Team Description 03/08/2020 Office Visit [facility] Kalani Jansen FNP [address] [place], [place] [id number] Derangement of left knee (Primary Dx); [facility] Primary Adhesive capsulitis of left shoulder; Clinic Essential hypertension; [address] Tachycardia; [place], [place] Bilateral lower extremity edema [phone] Allergies Active Allergy Reactions Severity Noted Date Comments Naproxen Nausea and/or Vomiting 04/28/2019 documented as of this encounter (statuses as of 03/20/2020) Medications Medication Sig Dispensed Refills Start End [...] as of this encounter (statuses as of 03/20/2020) Active Problems Problem Noted Date PTSD (post-traumatic stress disorder) 08/19/2018 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 Still having intermittent sternal pain which is [...] file Gets together: Not on file Attends oriental orthodox service: Not on file Active member of [...] issues and agrees with the plan. Kalani [facility] . Lolly Guerrero LVN - 03/08/2020 10:00 AM CDTCharity Lexi Rodriguez is a 24 year old [...] Description 04/24/2020 Office Visit Gastroenterology Annemarie Valladares, VIJAYP [address] [facility] [address] [place] [address] [phone] Name Type Priority Associated Diagnoses Order S chedule MR KNEE LEFT WO IMAGING Routine Derangement of left knee Expected: 03/20/2020, CONTRAST Expires: 2020 Health Maintenance Due Date Last [...] PT documented as of this encounter Results XR KNEE 3 VW LEFT (03/16/2020 8:13 AM CDT) Specimen Impressions Performed At PACS/VR/DOSE Large effusion. No fracture. Narrative Performed At EXAM: PACS/VR/DOSE XR KNEE 3 VW LEFT HISTORY: new onset of instablity left knee with 2 falls in last 4 wks COMPARISON: None FINDINGS: Imaging of the left knee demonstrates a moderate sized effusion. Alignment is maintained. There is mild depression of the medial tibial plateau on the PA view. No fracture is appreciated. Procedure Note [facility], Radiant Results Inft User - 2019 8:48 AM CDT EXAM: XR KNEE 3 VW LEFT HISTORY: new onset of instablity left knee with 2 falls in last 4 wks COMPARISON: None FINDINGS: Imaging of the left knee demonstrates a moderate sized effusion. Alignment is maintained. There is mild depression of the medial tibial plateau on the PA view. No fracture is appreciated. IMPRESSION Large effusion. No fracture. Performing Organization Address City/State/Zipcode Phone Number PACS/VR/DOSE documented in this encounter Visit Diagnoses Diagnosis Derangement of left knee - Primary Unspecified internal derangement of knee Adhesive capsulitis of left shoulder Adhesive capsulitis of shoulder Essential hypertension Unspecified essential hypertension Tachycardia Tachycardia, unspecified Bilateral lower extremity edema Edema documented in this encounter Insurance Payer Benefit Plan / Subscriber ID Effective Phone Address T ype Group Dates ROSY ROSY [id number] 2016-Pres [phone] PRIMARY CARE PRIMARY CARE ent [address] [place] [address] documented as of this encounter
--- OUTSIDE RECORDS SUMMARY | 2020-04-17 18:02 | XMS REPORT | Summary of Care ---
:1995 Author Organization [facility] Address [address] [place] [id number] Care Team Providers Name Role Phone JERRY Jansen Primary Care Provider Reason for Referral Radiology Services (Routine) Status Reason Specialty Diagnoses / Referred By Referred To Procedures Contact Contact Closed Diagnostic Diagnoses Derangement of left knee Derangement of left knee Kalani Jansen FNP Radiology Procedures XR KNEE 3 VW LEFT XR KNEE 3 VW LEFT [address] [place] [address] Reason for Visit Radiology Services (Routine) Status Reason Specialty Diagnoses / Referred By Referred To Procedures Contact Contact Closed Diagnostic Diagnoses Derangement of left knee Derangement of left knee Kalani Jansen FNP Radiology Procedures XR KNEE 3 VW LEFT XR KNEE 3 VW LEFT [address] [place] [address] Encounter Details Date Type Department Care Team Description 03/16/2020 Hospital Encounter [facility] Marely De Souza FNP Arrived [place] [facility] [address] [place] [address] [phone] Allergies Active Allergy Reactions Severity Noted Date Comments Naproxen Nausea and/or Vomiting 04/28/2019 documented as of this encounter (statuses as of 03/17/2020) Medications Medication Sig Dispensed Refills Start Date [...] as of this encounter (statuses as of 03/17/2020) Active Problems Problem Noted Date PTSD (post-traumatic stress disorder) 08/19/2018 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 Pain 06/11/2017 Fine motor impairment 06/11/2017 Conversion disorder 05/14/2017 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 documented as of this encounter (statuses as of 03/17/2020) Social History Tobacco Use Types Packs/Day Years Used Date Former Smoker Cigarettes 5 Smokeless Tobacco: Never Used Comments: Quit smoking/vaping earlier year Alcohol Use Drinks/Week oz/Week Comments Yes [...] Office Visit Gastroenterology Annemarie Valladares, VIJAYP [address] [facility] [address] [place] [address] [phone] Health Maintenance Due Date Last Done Comments [...] Name Priority Date/Time Associated Diagnosis Comme nts XR KNEE 3 VW LEFT Routine 03/16/2020 8:13 AM Derangement of l eft Results for this CDT knee procedure are i n the results section. documented in this encounter Results XR KNEE 3 VW [...] Visit Diagnoses Diagnosis Derangement of left knee Unspecified internal derangement of knee documented in this encounter Insurance Payer Benefit Plan Subscriber ID Effective Phone Address Typ e / Group Dates [employer] [place] [employer] [place] [id number] 2020-Prese [phone] [facility] [address] [place] [id number] documented as of this encounter
--- OUTSIDE RECORDS SUMMARY | 2020-04-17 18:02 | XMS REPORT | Summary of Care ---
:1995 Author Organization [facility] Address [address] [place] [address] Care Team Providers Name Role Phone JERRY Jansen Primary Care Provider Reason for Visit Reason Comments Lab Results Encounter Details Date Type Department Care Team Description 03/13/2020 Telephone [facility] Kalani Ambrocio FNP Lab Results [facility] 301 [facility] 260 [facility], [facility] [address] [place] [address] [place] [address] Allergies Active Allergy Reactions Severity Noted Date Comments Naproxen Nausea and/or Vomiting 04/28/2019 documented as of this encounter (statuses as of 03/14/2020) Medications Medication Sig Dispensed Refills Start Date [...] as of this encounter (statuses as of 03/14/2020) Active Problems Problem Noted Date PTSD (post-traumatic stress disorder) 08/19/2018 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 [place] [employer] [id number] 2016-Prese [phone] [facility] [address] [facility] [address] [place] [address] [place] [place] [id number] 2020-Prese [phone] [facility] [address] [facility] [address] [place] [address] documented as of this encounter
--- NOTE | 2020-04-17 19:55 | EDPHYS ---
Physician Documentation [facility] Name: Taylor Rodriguez Age: 25 yrs Sex: Female : 1995 Arrival Date: 04/17/2020 Time: 18:00 Bed 16 Private MD: ED Physician Stan Pollard HPI: 04/17 19:49 This 25 yrs old Black Female presents to ER via Wheelchair with complaints of Ankle pkl Injury. 19:49 The patient presents with an injury, pain, that is acute, swelling. The complaints pkl affect the right ankle. Onset: The symptoms/episode began/occurred today. Associated signs and symptoms: The patient has no apparent associated signs or symptoms. 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 - Social history:: Smoking status: Patient denies any tobacco usage or history of. ROS: 19:49 Eyes: Negative for injury, pain, redness, and discharge, ENT: Negative for injury, pkl pain, and discharge, Neck: Negative for injury, pain, and swelling, Cardiovascular: Negative for chest pain, palpitations, and edema, Respiratory: Negative for shortness of breath, cough, wheezing, and pleuritic chest pain, Abdomen/GI: Negative for abdominal pain, nausea, vomiting, diarrhea, and constipation, Back: Negative for injury and pain, : Negative for injury, bleeding, discharge, and swelling. 19:49 MS/extremity: Positive for pain, swelling, tenderness, of the right ankle. 19:49 Skin: Negative for rash. 19:49 Neuro: Negative for altered mental status. Exam: 19:49 Head/Face: Normocephalic, atraumatic. Eyes: Pupils equal round and reactive to light, pkl extra-ocular motions intact. Lids and lashes normal. Conjunctiva and sclera are non-icteric and not injected. Cornea within normal limits. Periorbital areas with no swelling, redness, or edema. ENT: Nares patent. No nasal discharge, no septal abnormalities noted. Tympanic membranes are normal and external auditory canals are clear. Oropharynx with no redness, swelling, or masses, exudates, or evidence of obstruction, uvula midline. Mucous membranes moist. Neck: Trachea midline, no thyromegaly or masses palpated, and no cervical lymphadenopathy. Supple, full range of motion without nuchal rigidity, or vertebral point tenderness. No Meningismus. Chest/axilla: Normal chest wall appearance and motion. Nontender with no deformity. No lesions are appreciated. Cardiovascular: Regular rate and rhythm with a normal S1 and S2. No gallops, murmurs, or rubs. Normal PMI, no JVD. No pulse deficits. Respiratory: Lungs have equal breath sounds bilaterally, clear to auscultation and percussion. No rales, rhonchi or wheezes noted. No increased work of breathing, no retractions or nasal flaring. Abdomen/GI: Soft, non-tender, with normal bowel sounds. No distension or tympany. No guarding or rebound. No evidence of tenderness throughout. Back: No spinal tenderness. No costovertebral tenderness. Full range of motion. Skin: Warm, dry with normal turgor. Normal color with no rashes, no lesions, and no evidence of cellulitis. Neuro: Awake and alert, GCS 15, oriented to person, place, time, and situation. Cranial nerves II-XII grossly intact. Motor strength 5/5 in all extremities. Sensory grossly intact. Cerebellar exam normal. Normal gait. 19:49 Musculoskeletal/extremity: Extremities: grossly normal except: noted in the right ankle: pain, swelling, tenderness. Vital Signs: 18:34 BP 134 / 72; Pulse 82; Resp 16; Temp 97.1; Pulse Ox 100% on R/A; Weight 108.41 kg; iw Height 5 ft. 3 in. (160.02 cm); Pain 8/10; 20:30 BP 128 / 78; Pulse 80; Resp 18; Temp 98; Pulse Ox 100% on R/A; mg2 18:34 Body Mass Index 42.34 (108.41 kg, 160.02 cm) iw Procedures: 19:49 Splinting: Splint applied to right ankle applied by tech. Examined by me, post splint pkl application: 2+ distal pulses palpable, Patient tolerated well. MDM: 19:38 Patient medically screened. pkl 19:49 Data reviewed: vital signs, nurses notes, radiologic studies, plain films. ED course: pkl Discussed X' rays result with patient. Advised to follow up with PCP in 2 to 3 days. Patient understood instructions. 04/17 18:36 Order name: Ankle Right 3 View XRAY; Complete Time: 01:27 iw 04/17 19:49 Order name: Splint - Ankle: Posterior; Complete Time: 20:33 pkl 04/17 19:49 Order name: Crutches; Complete Time: 20:33 pkl Administered Medications: 20:08 Drug: [place] 5 mg-325 mg 1 tabs Route: PO; mg2 20:33 Follow up: Response: No adverse reaction; RASS: Alert and Calm (0) mg2 Disposition: 04/17/20 19:55 Discharged to Home. Impression: Sprain right ankle. - Condition is Stable. - Prescriptions for Ultram 50 mg Oral Tablet - take 1 tablet by ORAL route every 8 hours As needed; 15 tablet. - Work release form, Medication Reconciliation Form, Thank You Letter, Antibiotic Education, Prescription Opioid Use form. - Follow up: Private Physician; When: 2 - 3 days; Reason: Re-evaluation by your physician. - Problem is new. - Symptoms have improved. Signatures: Dispatcher [employer] EDMS Stan Pollard MD MD pkl Yumiko Ellis RN RN Haresh Burger RN RN mg2 Elba Arriaza RN RN mt2 Corrections: (The following items were deleted from the chart) 20:53 19:55 04/17/2020 19:55 Discharged to Home. Impression: Sprain right ankle. Condition is mt2 Stable. Forms are Medication Reconciliation Form, Thank You Letter, Antibiotic Education, Prescription Opioid Use. Follow up: Private Physician; When: 2 - 3 days; Reason: Re-evaluation by your physician. Problem is new. Symptoms have improved. pkl
--- NOTE | 2020-04-17 19:55 | ER ---
Nurse's Notes [facility] Name: Taylor Rodriguez Age: 25 yrs Sex: Female : 1995 Arrival Date: 04/17/2020 Time: 18:00 Bed 16 Private MD: Diagnosis: Sprain right ankle Presentation: 04/17 18:32 Chief complaint: Patient states: missed bottom of stairs and rolled her right ankle, iw then went to work and twisted it again. Coronavirus screen: At this time, the client does not indicate any symptoms associated with coronavirus-19. Ebola Screen: Patient negative for fever greater than or equal to 101.5 degrees Fahrenheit, and additional compatible Ebola Virus Disease symptoms Patient denies exposure to infectious person. Patient denies travel to an Ebola-affected area in the 21 days before illness onset. No symptoms or risks identified at this time. Initial Sepsis Screen: Does the patient meet any 2 criteria? No. Patient's initial sepsis screen is negative. Does the patient have a suspected source of infection? No. Patient's initial sepsis screen is negative. Risk Assessment: Do you want to hurt yourself or someone else? Patient reports no desire to harm self or others. Onset of symptoms was April 17, 2020. 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 - Social history:: Smoking status: Patient denies any tobacco usage or history of. Screenin:34 Abuse screen: Denies threats or abuse. Denies injuries from another. Nutritional mg2 screening: No deficits noted. Tuberculosis screening: No symptoms or risk factors identified. Fall Risk No fall in past 12 months (0 pts). Gait- Impaired (20 pts.). Assessment: 19:30 General: Appears in no apparent distress. comfortable, Behavior is calm, cooperative. mg2 Pain: Complains of pain in right foot. 19:30 Neuro: Level of Consciousness is awake, alert, obeys commands, Oriented to person, mg2 place, time, situation. Cardiovascular: Capillary refill < 3 seconds Patient's skin is warm and dry. Respiratory: Airway is patent Respiratory effort is even, unlabored, Respiratory pattern is regular, symmetrical. GI: No signs and/or symptoms were reported involving the gastrointestinal system. : No signs and/or symptoms were reported regarding the genitourinary system. EENT: No signs and/or symptoms were reported regarding the EENT system. Derm: Skin is intact, is healthy with good turgor, Skin is pink, warm \T\ dry. normal. Musculoskeletal: Circulation, motion, and sensation intact. Capillary refill < 3 seconds, Swelling present in right foot. Vital Signs: 18:34 BP 134 / 72; Pulse 82; Resp 16; Temp 97.1; Pulse Ox 100% on R/A; Weight 108.41 kg; iw Height 5 ft. 3 in. (160.02 cm); Pain 8/10; 20:30 BP 128 / 78; Pulse 80; Resp 18; Temp 98; Pulse Ox 100% on R/A; mg2 18:34 Body Mass Index 42.34 (108.41 kg, 160.02 cm) iw ED Course: 18:00 Patient arrived in ED. ds1 18:33 Triage completed. iw 18:35 Arm band placed on. iw 19:09 Haresh Burger, RN is Primary Nurse. mg2 19:38 Stan Pollard MD is Attending Physician. pkl 19:50 Ankle Right 3 View XRAY In Process Unspecified. EDMS 20:35 No provider procedures requiring assistance completed. Patient did not have IV access mg2 during this emergency room visit. Crutch training done. Orthoglass splint: Posterior short lleg splint applied on right leg. applied ZACH Jaime and checked by provider prior to dc. 20:36 Patient has correct armband on for positive identification. mg2 Administered Medications: 20:08 Drug: [place] 5 mg-325 mg 1 tabs Route: PO; mg2 20:33 Follow up: Response: No adverse reaction; RASS: Alert and Calm (0) mg2 Outcome: 19:55 Discharge ordered by . tati 20:36 Discharged to home with crutches. mg2 20:36 Condition: stable 20:36 Discharge instructions given to patient, Instructed on discharge instructions, follow up and referral plans. medication usage, Demonstrated understanding of instructions, follow-up care, medications, crutch walking, Prescriptions given X 1. 20:53 Patient left the ED. mt2 Signatures: Dispatcher [employer] EDMS Stan Pollard MD MD pkl Sanford, Demi ds1 Yumiko Ellis RN RN iw Haresh Burger RN RN mg2 Elba Arriaza RN RN mt2
--- NOTE | 2020-04-17 20:11 | RAD REPORT ---
EXAM DESCRIPTION: RAD - Ankle Right 3 View - 04/17/2020 7:50 pm CLINICAL HISTORY: Right ankle pain FINDINGS: No fracture or dislocation is seen. Soft tissue swelling
[2020-04-17] MEDS ORDERED: HYDROCODONE/APAP 5/325 MG TAB ONE (20:14)
[2020-04-17 23:03] VITALS: O2SAT 100
[2020-04-17 23:04] VITALS: BP 128/78; TEMP 98
== END 2020-04-17 20:53 | disposition home or self-care (01) ==
LOC: ER 17:58
DX: S93.401A Sprain of unspecified ligament of right ankle, initial encounter (principal); X58.XXXA Exposure to other specified factors, initial encounter; Y93.9 Activity, unspecified; Y92.9 Unspecified place or not applicable; Z88.6 Allergy status to analgesic agent; F20.9 Schizophrenia, unspecified

== ENCOUNTER 2020-12-25 19:44 | Emergency (ER) | payer SELFPAY ==
--- OUTSIDE RECORDS SUMMARY | 2020-12-25 19:47 | XMS REPORT | Continuity of Care Document ---
:1995 Author Organization [facility] t Address [address] [place] [address] Care Team Providers Name Role Phone Inderjit RODRIGUEZP Attending Clinician Doctor Unassigned, Name Attending Clinician Unavailable Jessica Hsieh MD Attending Clinician Problems This patient has no known problems. Allergies, Adverse Reactions, Alerts This patient has no known allergies or adverse reactions. Medications This patient has no known medications. Procedures This patient has no known procedures. Encounters Start End Encounter Admission Attending Care Care Encounter Source Date/Time Date/Time Type Type Clinicians Facility Department ID 2020-10-23 2020-10-23 Telephone Kalani Jansen [id number] 00:00:00 00:00:00 [facility] [id number] HEALTH [id number] UNIT [id number] 2020-09-27 2020-09-27 Orders Doctor CONNER [id number] 00:00:00 00:00:00 Only Unassigned, [place] [id number] [place] [facility] [id number] 2020-09-20 2020-09-20 Telephone DENNIS Hsieh [id number] 00:00:00 00:00:00 [facility] [id number] Surgical [id number] Specialti [id number] 2020-09-07 2020-09-07 Office Jori [facility] [id number] 09:03:53 09:52:26 Visit [facility] [id number] Surgical [id number] Specialti [id number] rosanne [address] Results This patient has no known results.
--- NOTE | 2020-12-25 21:05 | RAD REPORT ---
EXAM DESCRIPTION: RAD - Forearm Right - 12/25/2020 9:00 pm CLINICAL HISTORY: Right arm pain FINDINGS: No fracture is seen. No bony lesion is displayed
--- NOTE | 2020-12-25 21:45 | EDPHYS ---
Physician Documentation [facility] Name: Taylor Rodriguez Age: 25 yrs Sex: Female : 1995 Arrival Date: 12/25/2020 Time: 19:45 Bed 18 Private MD: ED Physician Moses Bell HPI: 12/25 21:50 This 25 yrs old Black Female presents to ER via Ambulatory with complaints of Wrist jr8 Injury. 21:50 Onset: The symptoms/episode began/occurred gradually, 2 day(s) ago. Modifying factors: jr8 The symptoms are alleviated by nothing, the symptoms are aggravated by movement. Associated signs and symptoms: The patient has no apparent associated signs or symptoms. The patient has not experienced similar symptoms in the past. The patient has not recently seen a physician. Patient stated that she has persistent weakness to right arm but now having pain to right wrist and forearm. Denies trauma. Wakes up from sleeping with pain . 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 - Social history:: Smoking status: Reported history of juuling and/or vaping. ROS: 21:50 Eyes: Negative for injury, pain, redness, and discharge, ENT: Negative for injury, jr8 pain, and discharge, Neck: Negative for injury, pain, and swelling, Cardiovascular: Negative for chest pain, palpitations, and edema, Respiratory: Negative for shortness of breath, cough, wheezing, and pleuritic chest pain, Abdomen/GI: Negative for abdominal pain, nausea, vomiting, diarrhea, and constipation, Back: Negative for injury and pain, Skin: Negative for injury, rash, and discoloration, Neuro: Negative for headache, weakness, numbness, tingling, and seizure. 21:50 MS/extremity: Positive for decreased range of motion, pain, of the right arm. Exam: 21:50 Constitutional: This is a well developed, well nourished patient who is awake, alert, jr8 and in no acute distress. Cardiovascular: Regular rate and rhythm with a normal S1 and S2. No gallops, murmurs, or rubs. Normal PMI, no JVD. No pulse deficits. Respiratory: Lungs have equal breath sounds bilaterally, clear to auscultation and percussion. No rales, rhonchi or wheezes noted. No increased work of breathing, no retractions or nasal flaring. Skin: Warm, dry with normal turgor. Normal color with no rashes, no lesions, and no evidence of cellulitis. Neuro: Awake and alert, GCS 15, oriented to person, place, time, and situation. Cranial nerves II-XII grossly intact. Motor strength 4/5 in right arm. 5/5 in all other extremities. Sensory grossly intact. Cerebellar exam normal. Normal gait. 21:50 Musculoskeletal/extremity: Extremities: grossly normal except: noted in the right arm: Moderate tenderness to palpation of the dorsal right wrist. Pain with passive and active ROM. Full active ROM with decreased passive ROM present. Normal sensation with 2+ pulses present . Vital Signs: 20:20 BP 137 / 98; Pulse 84; Resp 18 S; Temp 98.8(O); Pulse Ox 99% on R/A; Weight 113.4 kg ca1 (R); Height 5 ft. 3 in. (160.02 cm) (R); Pain 8/10; 20:20 Body Mass Index 44.29 (113.40 kg, 160.02 cm) ca1 MDM: 21:21 Patient medically screened. jr8 21:43 Data reviewed: vital signs, nurses notes, radiologic studies, plain films. Data jr8 interpreted: Pulse oximetry: on room air is 99 %. Interpretation: normal. Counseling: I had a detailed discussion with the patient and/or guardian regarding: the historical points, exam findings, and any diagnostic results supporting the discharge/admit diagnosis, radiology results, the need for outpatient follow up, a neurologist, to return to the emergency department if symptoms worsen or persist or if there are any questions or concerns that arise at home. 21:50 ED course: No external evidence of trauma or swelling. No acute fracture on imaging. jr8 Patient has had longstanding weakness to arm for unknown reason now with pain. Recommended f/u with neurology form EMG study . 12/25 20:30 Order name: XRAY Forearm RIGHT; Complete Time: 21:21 jr8 Administered Medications: No medications were administered Disposition: 12/26 01:06 Co-signature as Attending Physician, Moses Bell MD. rn Disposition: 12/25/20 21:44 Discharged to Home. Impression: Pain in right wrist. - Condition is Stable. - Discharge Instructions: Wrist Pain. - Prescriptions for Medrol (Gonzalez) 4 mg Oral Tablets, Dose Pack - take 1 tablet by ORAL route as directed - follow package instructions; 1 packet. - Medication Reconciliation Form, Thank You Letter, Antibiotic Education, Prescription Opioid Use form. - Follow up: Mello Langford MD; When: 5 - 6 days; Reason: Recheck today's complaints, Continuance of care, Re-evaluation by your physician. - Problem is new. - Symptoms have improved. - Notes: Continue Meloxicam at home as needed for pain Follow up with Neurology for persistent weakness Signatures: Dispatcher [employer] EDCO Moses Bell MD MD rn Roszak, Josh, PA PA jr8 Asad Mccoy RN RN rr5 Lashell Fulton RN RN ca1 Corrections: (The following items were deleted from the chart) 12/25 20:59 20:30 Wrist Right 3 View+RAD.RAD.BRZ ordered. [facility] 22:01 21:44 12/25/2020 21:44 Discharged to Home. Impression: Pain in right wrist. Condition rr5 is Stable. Forms are Medication Reconciliation Form, Thank You Letter, Antibiotic Education, Prescription Opioid Use. Follow up: Mello Langford; When: 5 - 6 days; Reason: Recheck today's complaints, Continuance of care, Re-evaluation by your physician. Problem is new. Symptoms have improved. jr8
--- NOTE | 2020-12-25 21:45 | ER ---
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 "I have ca1 anxiety attack, and I don't really know what happened. I just woke up my R forearm hurts and R wrist is swollen". Coronavirus screen: Client denies travel out of the [place] in the last 14 days. At this time, the client does not indicate any symptoms associated with coronavirus-19. Ebola Screen: Patient negative for fever greater than or equal to 101.5 degrees Fahrenheit, and additional compatible Ebola Virus Disease symptoms Patient denies exposure to infectious person. Patient denies travel to an Ebola-affected area in the 21 days before illness onset. No symptoms or risks identified at this time. Initial Sepsis Screen: Does the patient meet any 2 criteria? No. Patient's initial sepsis screen is negative. Does the patient have a suspected source of infection? No. Patient's initial sepsis screen is negative. Risk Assessment: Do you want to hurt yourself or someone else? Patient reports no desire to harm self or others. Onset of symptoms was December 25, 2020. 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 - Social history:: Smoking status: Reported history of juuling and/or vaping. Screenin:15 Abuse screen: Denies threats or abuse. Denies injuries from another. Nutritional rr5 screening: No deficits noted. Tuberculosis screening: No symptoms or risk factors identified. Fall Risk None identified. Total Jarrett Fall Scale indicates No Risk (0-24 pts). Assessment: 21:15 General: Appears in no apparent distress. uncomfortable, Behavior is calm, cooperative, rr5 appropriate for age. 21:15 Pain: Complains of pain in right arm. Neuro: Level of Consciousness is awake, alert, rr5 obeys commands, Oriented to person, place, time. Cardiovascular: Capillary refill < 3 seconds Patient's skin is warm and dry. Respiratory: Airway is patent Respiratory effort is even, unlabored, Respiratory pattern is regular, symmetrical. Derm: Skin is intact, is healthy with good turgor, Skin temperature is warm. Musculoskeletal: Capillary refill < 3 seconds, Swelling present in right arm Reports pain in right arm. 22:00 Reassessment: Patient appears in no apparent distress at this time. Patient is alert, rr5 oriented x 3, equal unlabored respirations, skin warm/dry/pink. discharge instruction given and explained without complaints made. Vital Signs: 20:20 BP 137 / 98; Pulse 84; Resp 18 S; Temp 98.8(O); Pulse Ox 99% on R/A; Weight 113.4 kg ca1 (R); Height 5 ft. 3 in. (160.02 cm) (R); Pain 8/10; 20:20 Body Mass Index 44.29 (113.40 kg, 160.02 cm) ca1 ED Course: 19:45 Patient arrived in ED. am4 20:23 Triage completed. ca1 20:24 Arm band placed on right wrist. ca1 21:00 XRAY Forearm RIGHT In Process Unspecified. EDMS 21:15 Patient has correct armband on for positive identification. Call light in reach. rr5 21:21 Shon Delaney PA is PHCP. jr8 21:21 Moses Bell MD is Attending Physician. jr8 21:28 Asad Mccoy, ROQUE is Primary Nurse. rr5 21:44 Mello Langford MD is Referral Physician. jr8 22:00 No provider procedures requiring assistance completed. Patient did not have IV access rr5 during this emergency room visit. Administered Medications: No medications were administered Outcome: 21:44 Discharge ordered by . jr8 22:00 Discharged to home ambulatory. rr5 22:00 Condition: stable 22:00 Discharge instructions given to patient, Instructed on discharge instructions, follow up and referral plans. medication usage, Demonstrated understanding of instructions, follow-up care, medications, Prescriptions given X 1. 22:01 Patient left the ED. rr5 Signatures: Dispatcher [employer] EDMS Roszak, Shon, PA PA jr8 Asad Mccoy, RN RN rr5 Lashell Fulton RN RN ca1 Olivia Cheney am4
[2020-12-25 22:14] VITALS: BP 137/98; TEMP 98.8; O2SAT 99
== END 2020-12-25 22:01 | disposition home or self-care (01) ==
LOC: ER 19:44
DX: M25.531 Pain in right wrist (principal); F41.9 Anxiety disorder, unspecified; F32.9 Major depressive disorder, single episode, unspecified; M79.7 Fibromyalgia; F20.9 Schizophrenia, unspecified; F17.290 Nicotine dependence, other tobacco product, uncomplicated
CPT/HCPCS: 99283

== ENCOUNTER 2021-03-02 18:09 | Emergency (ER) | payer SELFPAY ==
--- OUTSIDE RECORDS SUMMARY | 2021-03-02 18:25 | XMS REPORT | Continuity of Care Document ---
:1995 Author Organization [facility] t Address [address] [place] [address] Care Team Providers Name Role Phone Inderjit [...] ID 2020-10-23 2020-10-23 Telephone Kalani Jansen [id number] 00:00:00 00:00:00 [facility]LY [facility] [id number] HEALTH [id number] UNIT [id number] 2020-09-27 2020-09-27 Orders Doctor CONNRE [id number] 00:00:00 00:00:00 Only Unassigned, LESLEY [id number] [place] [facility] [id number] 2020-09-20 2020-09-20 Telephone DENNIS Hsieh [id number] 00:00:00 00:00:00 [facility] [id number] Surgical [id number] Specialti [id number] 2020-09-07 2020-09-07 Office Jori [facility] [id number] 09:03:53 09:52:26 Visit [facility] [id number] Surgical [id number] Specialti [id number] rosanne [address] Results This patient has no known results.
[2021-03-02 19:10] LABS: Urine Blood Negative (Negative); Urine Glucose Negative (Negative); Urine Protein Negative (Negative); Urine pH 7.5 (5.0-7.0)
[2021-03-02] MEDS ORDERED: NA CHLORIDE 0.9% 1,000 ML ONE (20:41)
[2021-03-02] MEDS ORDERED: DIAZEPAM 5 MG TABLET ONE (20:41)
[2021-03-02 20:43] LABS: Absolute Lymphocytes (CBC) 2.2 K/uL (0.7-4.9); Basophils % 0.6 % (0-1.3); Hematocrit 32.5 % (36.0-45.0); Lymphocytes % 27.7 % (15.3-44.8)
[2021-03-02 20:51] LABS: BUN Blood Urea Nitrogen 9 mg/dL (7-18); Bicarbonate 28 mmol/L (21-32); Glucose Level 85 mg/dL (74-106); Potassium 3.8 mmol/L (3.5-5.1); Sodium Level 140 mmol/L (136-145)
--- NOTE | 2021-03-02 21:25 | ER ---
Nurse's Notes [facility] Name: Taylor Rodriguez Age: 25 yrs Sex: Female : 1995 Arrival Date: 03/02/2021 Time: 18:15 Bed 6 Private MD: Diagnosis: Fibromyalgia Presentation: 03/02 18:42 Chief complaint: Patient states: chills, body aches, nausea, loss of appetite, sharp kg pain on the balls of feet and ankles, knots in back, legs went numb 7/3 and generalized feeling bad x 1 week. Coronavirus screen: Client denies travel out of the [place] in the last 14 days. At this time, unable to obtain information related to travel outside the [place] Ebola Screen: Patient negative for fever greater than or equal to 101.5 degrees Fahrenheit, and additional compatible Ebola Virus Disease symptoms Patient denies exposure to infectious person. Patient denies travel to an Ebola-affected area in the 21 days before illness onset. Initial Sepsis Screen: Does the patient meet any 2 criteria? No. Patient's initial sepsis screen is negative. Does the patient have a suspected source of infection? No. Patient's initial sepsis screen is negative. Risk Assessment: Do you want to hurt yourself or someone else? Patient reports no desire to harm self or others. Onset of symptoms was February 23, 2021. 18:42 Method Of Arrival: Ambulatory kg 18:42 Acuity: MILAN 3 kg Triage Assessment: 18:47 General: Appears in no apparent distress. Behavior is calm, cooperative, appropriate kg for age, quiet. Pain: Complains of pain in Generalized Pain currently is 9 out of 10 on a pain scale. at worst was 10 out of 10 on a pain scale. level that patient reports is acceptable is 6 out of 10 on a pain scale. Quality of pain is described as aching, sharp, stiff Pain began a week ago. 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 - Social history:: Smoking status: Reported history of juuling and/or vaping. Patient uses alcohol, occasionally. Screenin:51 Abuse screen: Denies threats or abuse. Denies injuries from another. Nutritional kg screening: No deficits noted. Tuberculosis screening: No symptoms or risk factors identified. Fall Risk None identified. Fall in past 12 months (25 points). No secondary diagnosis (0 pts). No IV (0 pts). Ambulatory Aid- None/Bed Rest/Nurse Assist (0 pts). Gait- Weak (10 pts.). Mental Status- Oriented to own ability (0 pts). Total Jarrett Fall Scale indicates No Risk (0-24 pts). Assessment: 20:32 Reassessment: Patient appears in no apparent distress at this time. No changes from bs2 previously documented assessment. Patient is alert, oriented x 3, equal unlabored respirations, skin warm/dry/pink. Patient states symptoms have not improved. General: Appears in no apparent distress. comfortable, obese, well groomed, well developed, well nourished, Behavior is calm, cooperative, appropriate for age. Pain: Complains of pain in left foot Pain radiates to left leg Pain currently is 7 out of 10 on a pain scale. Vital Signs: 18:42 BP 142 / 96; Pulse 92; Resp 20; Temp 98.6(O); Pulse Ox 99% on R/A; Weight 127.01 kg kg (M); Height 5 ft. 2 in. (157.48 cm); Pain 9/10; 20:34 BP 135 / 94 LA Sitting (auto/reg); Pulse 73 MON; Resp 15 S; Temp 98.6(O); Pulse Ox 98% bs2 on R/A; Pain 7/10; 21:33 BP 125 / 94; Pulse 90; Resp 16; Pulse Ox 100% on R/A; lp1 18:42 Body Mass Index 51.21 (127.01 kg, 157.48 cm) kg ED Course: 18:15 Patient arrived in ED. mr 18:47 Triage completed. kg 18:52 Arm band placed on right wrist. kg 18:52 Patient has correct armband on for positive identification. kg 19:49 Gerry Cuellar NP is PHCP. pm1 19:49 Stan Pollard MD is Attending Physician. pm1 20:32 BMP Sent. bs2 20:32 CBC with Diff Sent. bs2 20:32 No provider procedures requiring assistance completed. Inserted saline lock: 20 gauge bs2 in right antecubital area, using aseptic technique. 21:43 IV discontinued, intact, bleeding controlled, No redness/swelling at site. bs2 Administered Medications: 20:31 Drug: NS 0.9% 1000 ml Route: IV; Rate: 1 bolus; Site: right antecubital; bs2 21:43 Follow up: IV Status: Completed infusion; IV Intake: 1000ml bs2 20:31 Drug: Valium (diazepam) 5 mg Route: PO; bs2 21:18 Follow up: Response: Marked relief of symptoms lp1 Intake: 21:43 IV: 1000ml; Total: 1000ml. bs2 Outcome: 21:24 Discharge ordered by . pm1 21:42 Discharged to home ambulatory. bs2 21:42 Condition: improved 21:42 Discharge instructions given to patient, Instructed on discharge instructions, follow up and referral plans. medication usage, Demonstrated understanding of instructions, follow-up care, medications, Prescriptions given X 1. 21:45 Patient left the ED. bs2 Signatures: Marlene Verma mr TyronMaribel RN RN lp1 Gerry Cuellar NP OUTSIDE DEALER SALES REPRESENTATIVE pm1 Izabel Valle RN RN kg Jane Srinivasan bs2
--- NOTE | 2021-03-02 21:25 | EDPHYS ---
Physician Documentation [facility] Name: Taylor Rodriguez Age: 25 yrs Sex: Female : 1995 Arrival Date: 03/02/2021 Time: 18:15 Bed 6 Private MD: ED Physician Stan Polladr HPI: 03/02 20:00 This 25 yrs old Black Female presents to ER via Ambulatory with complaints of Pain All pm1 Over. 20:00 Onset: The symptoms/episode began/occurred 1 week(s) ago. Associated signs and pm1 symptoms: The patient has no apparent associated signs or symptoms. Modifying factors: The patient symptoms are alleviated by nothing, the patient symptoms are aggravated by n longer has pain medications for her fibromyalgia. Patient used to take Lyrica for her pain but has not had the medication for many months due to insurance issues. The patient has experienced similar episodes in the past, chronically. The patient has not recently seen a physician. Patient with similar symptoms for her fibromyalgia. 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 - Social history:: Smoking status: Reported history of juuling and/or vaping. Patient uses alcohol, occasionally. ROS: 03/03 00:59 Constitutional: Negative for fever, chills, and weight loss, Eyes: Negative for injury, pm1 pain, redness, and discharge, ENT: Negative for injury, pain, and discharge, Neck: Negative for injury, pain, and swelling, Cardiovascular: Negative for chest pain, palpitations, and edema, Respiratory: Negative for shortness of breath, cough, wheezing, and pleuritic chest pain, Abdomen/GI: Negative for abdominal pain, nausea, vomiting, diarrhea, and constipation, Back: Negative for injury and pain, MS/Extremity: Negative for injury and deformity, Skin: Negative for injury, rash, and discoloration, Neuro: Negative for headache, weakness, numbness, tingling, and seizure. Exam: 00:59 Constitutional: This is a well developed, well nourished patient who is awake, alert, pm1 and in no acute distress. Head/Face: Normocephalic, atraumatic. 00:59 Neck: Trachea midline, no thyromegaly or masses palpated, and no cervical lymphadenopathy. Supple, full range of motion without nuchal rigidity, or vertebral point tenderness. No Meningismus. Chest/axilla: Normal chest wall appearance and motion. Nontender with no deformity. No lesions are appreciated. 00:59 Back: No spinal tenderness. No costovertebral tenderness. Full range of motion. Skin: Warm, dry with normal turgor. Normal color with no rashes, no lesions, and no evidence of cellulitis. MS/ Extremity: Pulses equal, no cyanosis. Neurovascular intact. Full, normal range of motion. 00:59 Eyes: Exam is negative for acute changes, Extraocular movements: no acute changes, Conjunctiva: normal, no injection. 00:59 ENT: Exam is negative for acute changes, Mouth: Lips: normal, Oral mucosa: normal, pink and intact, moist. 00:59 Cardiovascular: Exam negative for acute changes, Rate: normal, Rhythm: regular, Pulses: no pulse deficits are appreciated, Heart sounds: normal, normal S1and S2. 00:59 Respiratory: Exam negative for acute changes, respiratory distress, shortness of breath, Breath sounds: are clear throughout. 00:59 Abdomen/GI: Inspection: obese Palpation: abdomen is soft and non-tender, in all quadrants. 00:59 Neuro: Exam negative for acute changes, Orientation: is normal, Mentation: is normal, Motor: is normal, moves all fours, Sensation: is normal, no obvious gross deficits. Vital Signs: 03/02 18:42 BP 142 / 96; Pulse 92; Resp 20; Temp 98.6(O); Pulse Ox 99% on R/A; Weight 127.01 kg kg (M); Height 5 ft. 2 in. (157.48 cm); Pain 9/10; 20:34 BP 135 / 94 LA Sitting (auto/reg); Pulse 73 MON; Resp 15 S; Temp 98.6(O); Pulse Ox 98% bs2 on R/A; Pain 7/10; 21:33 BP 125 / 94; Pulse 90; Resp 16; Pulse Ox 100% on R/A; lp1 18:42 Body Mass Index 51.21 (127.01 kg, 157.48 cm) kg MDM: 19:49 Patient medically screened. pm1 21:23 Data reviewed: vital signs. Data interpreted: Pulse oximetry: on room air is 98 %. pm1 Interpretation: normal. Counseling: I had a detailed discussion with the patient and/or guardian regarding: the historical points, exam findings, and any diagnostic results supporting the discharge/admit diagnosis, lab results, the need for outpatient follow up, to return to the emergency department if symptoms worsen or persist or if there are any questions or concerns that arise at home. 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 Last prescription in July 2020. pm1 03/02 19:10 Order name: Urine Dipstick-Ancillary; Complete Time: 19:50 EDMS 03/02 19:11 Order name: Urine --Ancillary (enter results); Complete Time: 19:50 tt3 03/02 20:00 Order name: CBC with Diff; Complete Time: 20:49 pm1 03/02 20:00 Order name: BMP; Complete Time: 21:00 pm1 03/02 19:11 Order name: Urine Test (obtain specimen); Complete Time: 19:11 tt3 03/02 20:00 Order name: IV Saline Lock; Complete Time: 20:32 pm1 Administered Medications: 20:31 Drug: NS 0.9% 1000 ml Route: IV; Rate: 1 bolus; Site: right antecubital; bs2 21:43 Follow up: IV Status: Completed infusion; IV Intake: 1000ml bs2 20:31 Drug: Valium (diazepam) 5 mg Route: PO; bs2 21:18 Follow up: Response: Marked relief of symptoms lp1 Disposition: 03/03 03:42 Co-signature as Attending Physician, Stan Pollard MD. pkl Disposition Summary: 03/02/21 21:24 Discharge Ordered Location: Home pm1 Problem: new pm1 Symptoms: have improved pm1 Condition: Stable pm1 Diagnosis - Fibromyalgia pm1 Followup: pm1 - With: Emergency Department - When: As needed - Reason: Worsening of condition Followup: pm1 - With: Private Physician - When: 2 - 3 days - Reason: Recheck today's complaints, Continuance of care, Re-evaluation by your physician Discharge Instructions: - Discharge Summary Sheet pm1 - Myofascial Pain Syndrome and Fibromyalgia pm1 Forms: - Work release form em - Medication Reconciliation Form pm1 - Thank You Letter pm1 - Antibiotic Education pm1 - Prescription Opioid Use pm1 Prescriptions: - Valium 2 mg Oral Tablet - take 1 tablet by ORAL route every 8 hours As needed; 6 tablet; Refills: 0, pm1 Product Selection Permitted Signatures: Dispatcher [employer] EDMS Stan Pollard MD MD pkl Gerry Cuellar, KARTHIK BROADCAST CORRESPONDENT pm1 Jose Higuera tt3 Izabel Valle, RN RN Jane Oleary bs2 Maribel Ackerman RN lp1
[2021-03-02 21:55] VITALS: TEMP 98.6
[2021-03-02 21:58] VITALS: BP 125/94; O2SAT 100
== END 2021-03-02 21:45 | disposition home or self-care (01) ==
LOC: ER 18:09
DX: M79.7 Fibromyalgia (principal); F20.9 Schizophrenia, unspecified; Z88.5 Allergy status to narcotic agent
CPT/HCPCS: 36415; 80048; 81003; 81025; 85025; 96360; 99284; J7030

== ENCOUNTER 2022-02-27 18:55 | Emergency (ER) | payer SELFPAY ==
--- NOTE | 2022-02-27 19:26 | EDPHYS ---
Physician Documentation [facility] Name: Taylor Rodriguez Age: 26 yrs Sex: Female : 1995 Arrival Date: 02/27/2022 Time: 19:00 Bed 3 Private MD: ED Physician Audi Floyd HPI: 02/27 19:20 This 26 yrs old Black Female presents to ER via EMS with complaints of Anxiety. sp3 19:20 26-year-old female with a history of anxiety, depression, fibromyalgia, hypertension, sp3 schizophrenia seen at [facility] now presents with 2 hours of anxiety and near syncope which is now fully resolved. She denies any presyncopal symptoms including headache, chest pain, shortness of breath, abdominal pain, nausea, vomiting, diarrhea, seizure activity, consciousness, full syncope, altered mental status, confusion, or any other symptoms as a part of review of systems at this time. Symptoms are now fully resolved. She denies any suicidal ideation, homicidal ideation, psychosis, worsening depression, or any other psychiatric symptoms at this time.. 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 - Social history:: Smoking status: Patient/guardian denies using tobacco. ROS: 19:22 Constitutional: Negative for fever, chills, and weight loss, Eyes: Negative for injury, sp3 pain, redness, and discharge, ENT: Negative for injury, pain, and discharge, Neck: Negative for injury, pain, and swelling, Cardiovascular: Negative for chest pain, palpitations, and edema, Respiratory: Negative for shortness of breath, cough, wheezing, and pleuritic chest pain, Abdomen/GI: Negative for abdominal pain, nausea, vomiting, diarrhea, and constipation, Back: Negative for injury and pain, MS/Extremity: Negative for injury and deformity, Skin: Negative for injury, rash, and discoloration, Psych: Negative for depression, anxiety, suicide ideation, homicidal ideation, and hallucinations, Allergy/Immunology: Negative for hives, rash, and allergies, Endocrine: Negative for neck swelling, polydipsia, polyuria, polyphagia, and marked weight changes, Hematologic/Lymphatic: Negative for swollen nodes, abnormal bleeding, and unusual bruising. Exam: 19:23 Constitutional: This is a well developed, well nourished patient who is awake, alert, sp3 and in no acute distress. Head/Face: Normocephalic, atraumatic. Eyes: Pupils equal round and reactive to light, extra-ocular motions intact. Lids and lashes normal. Conjunctiva and sclera are non-icteric and not injected. Cornea within normal limits. Periorbital areas with no swelling, redness, or edema. ENT: Nares patent. No nasal discharge, no septal abnormalities noted. External auditory canals are clear. Oropharynx with no redness, swelling, or masses, exudates, or evidence of obstruction, uvula midline. Mucous membranes moist. Neck: Trachea midline, no thyromegaly or masses palpated, and no cervical lymphadenopathy. Supple, full range of motion without nuchal rigidity, or vertebral point tenderness. No Meningismus. Chest/axilla: Normal chest wall appearance and motion. Nontender with no deformity. No lesions are appreciated. Cardiovascular: Regular rate and rhythm with a normal S1 and S2. No gallops, murmurs, or rubs. Normal PMI, no JVD. No pulse deficits. Respiratory: Lungs have equal breath sounds bilaterally, clear to auscultation and percussion. No rales, rhonchi or wheezes noted. No increased work of breathing, no retractions or nasal flaring. Abdomen/GI: Soft, non-tender, with normal bowel sounds. No distension or tympany. No guarding or rebound. No evidence of tenderness throughout. Back: No spinal tenderness. No costovertebral tenderness. Full range of motion. Skin: Warm, dry with normal turgor. Normal color with no rashes, no lesions, and no evidence of cellulitis. MS/ Extremity: Pulses equal, no cyanosis. Neurovascular intact. Full, normal range of motion. Neuro: Awake and alert, GCS 15, oriented to person, place, time, and situation. Cranial nerves II-XII grossly intact. Motor strength 5/5 in all extremities. Sensory grossly intact. Cerebellar exam normal. Normal gait. Psych: Awake, alert, with orientation to person, place and time. Behavior, mood, and affect are within normal limits. Vital Signs: 19:00 BP 146 / 90; Pulse 95; Resp 18; Temp 98; Pulse Ox 97% ; bp 19:18 BP 144 / 102; Pulse 88; Resp 18 S; Pulse Ox 100% on R/A; as6 19:34 BP 157 / 108; Pulse 86; Resp 18 S; Pulse Ox 100% on R/A; as6 MDM: 19:12 Patient medically screened. sp3 19:23 Data reviewed: vital signs, nurses notes. ED course: Patient is fully ambulating and sp3 has a complete normal neurological exam. Blood sugar is 126. No further work-up is currently indicated the patient will be safely discharged verifying ambulation and securing transportation.. Administered Medications: No medications were administered Disposition Summary: 02/27/22 19:25 Discharge Ordered Location: Home sp3 Condition: Stable sp3 Diagnosis - Anxiety disorder, unspecified sp3 Followup: sp3 - With: Private Physician - When: As needed - Reason: Continuance of care Discharge Instructions: - Discharge Summary Sheet sp3 - Generalized Anxiety Disorder, Adult sp3 Forms: - Medication Reconciliation Form sp3 - Thank You Letter sp3 - Antibiotic Education sp3 - Prescription Opioid Use sp3 Signatures: Kevin Avina RN RN bp Audi Floyd MD MD sp3 Corrections: (The following items were deleted from the chart) 19:23 19:20 26-year-old female with a history of anxiety, depression, fibromyalgia, sp3 hypertension, schizophrenia seen at [facility] now presents with 2 hours of anxiety and near syncope which is now fully resolved. She denies any presyncopal symptoms including headache, chest pain, shortness of breath, abdominal pain, nausea, vomiting, diarrhea, seizure activity, consciousness, full syncope, altered mental status, confusion, or any other symptoms as a part of review of systems at this time. Symptoms are now fully resolved.. sp3
--- NOTE | 2022-02-27 19:26 | ER ---
Nurse's Notes [facility] Name: Taylor Rodriguez Age: 26 yrs Sex: Female : 1995 Arrival Date: 02/27/2022 Time: 19:00 Bed 3 Private MD: Diagnosis: Anxiety disorder, unspecified Presentation: 02/27 19:00 Chief complaint: EMS states: AT OUTDOOR PLAY AND HAD SHAKING EPISODE WITHOUT POST-ICTAL bp PERIOD, PT STATES MAY HAVE BEEN ANXIETY ATTACK VS SEIZURE. Coronavirus screen: At this time, the client does not indicate any symptoms associated with coronavirus-19. Ebola Screen: No symptoms or risks identified at this time. Initial Sepsis Screen: Does the patient meet any 2 criteria? HR > 90 bpm. No. Patient's initial sepsis screen is negative. Does the patient have a suspected source of infection? No. Patient's initial sepsis screen is negative. Risk Assessment: Do you want to hurt yourself or someone else? Patient reports no desire to harm self or others. Onset of symptoms was February 27, 2022 at 18:30. Care prior to arrival: Glucose check: 124. 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 - Social history:: Smoking status: Patient/guardian denies using tobacco. Screenin:03 Abuse screen: Denies threats or abuse. Denies injuries from another. Nutritional bp screening: No deficits noted. Tuberculosis screening: No symptoms or risk factors identified. Fall Risk None identified. Assessment: 19:03 General: SEE TRIAGE NOTE. bp 19:35 General: Appears in no apparent distress. Behavior is calm, cooperative, quiet. Pain: as6 Complains of pain in generalized. Cardiovascular: Patient's skin is warm and dry. Respiratory: Respiratory effort is even, unlabored. Vital Signs: 19:00 BP 146 / 90; Pulse 95; Resp 18; Temp 98; Pulse Ox 97% ; bp 19:18 BP 144 / 102; Pulse 88; Resp 18 S; Pulse Ox 100% on R/A; as6 19:34 BP 157 / 108; Pulse 86; Resp 18 S; Pulse Ox 100% on R/A; as6 ED Course: 19:00 Patient arrived in ED. bp 19:01 Triage completed. bp 19:01 Arm band placed on. bp 19:02 Marin Parish, RN is Primary Nurse. as6 19:03 Patient has correct armband on for positive identification. Bed in low position. Call bp light in reach. Side rails up X2. 19:12 Audi Floyd MD is Attending Physician. sp3 19:34 No provider procedures requiring assistance completed. Patient did not have IV access as6 during this emergency room visit. Administered Medications: No medications were administered Medication: 19:03 VIS not applicable for this client. bp Outcome: 19:25 Discharge ordered by . sp3 19:35 Condition: stable as6 19:40 Discharged to home ambulatory. as6 19:40 Discharge instructions given to patient, Instructed on discharge instructions, follow up and referral plans. Demonstrated understanding of instructions, follow-up care. 19:41 Patient left the ED. as6 Signatures: Kevin Avina RN RN bp Audi Floyd MD MD sp3 Marin Parish, ROQUE RN as6
[2022-02-27 20:50] VITALS: TEMP 98
[2022-02-27 20:52] VITALS: O2SAT 100
[2022-02-27 20:54] VITALS: BP 157/108
== END 2022-02-27 19:41 | disposition home or self-care (01) ==
LOC: ER 18:55
DX: F41.9 Anxiety disorder, unspecified (principal); E11.9 Type 2 diabetes mellitus without complications; F20.9 Schizophrenia, unspecified; Z88.8 Allergy status to other drugs, medicaments and biological substances

== ENCOUNTER 2022-08-09 00:43 | Emergency (ER) | payer SELFPAY ==
--- OUTSIDE RECORDS SUMMARY | 2022-08-09 00:52 | XMS REPORT | Continuity of Care Document ---
:1995 Author Organization [facility] t Address [address] [place] [address] Care Team Providers Name Role Phone KALANI DELGADO Primary Care Physician Unavailable DAR_CHRISTINA Attending Clinician Unavailable BEVERLEY GRAFF Attending Clinician Unavailable Kalani Wick Attending Clinician SHEY BIANCHI Attending Clinician Unavailable Doctor Unassigned, [place] Attending Clinician Unavailable Shey Bianchi MD Attending Clinician KALANI DELGADO Attending Clinician Unavailable James Sosa MD Attending Clinician Care, Ang Primary Attending Clinician Unavailable ILIANA LAMAR Attending Clinician Unavailable Beverley Alexander Attending Clinician Dannie Botello MD Attending Clinician DANNIE BOTELLO Attending Clinician Unavailable AMBREENKATHIA Admitting Clinician Unavailable KALANI DELGADO Admitting Clinician Unavailable Payers Payer Name Policy Type Policy Number Effective Date Expiration Date Leeroy 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-12 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 00:00: [place] 00 Medical Branch Pain Pain Disease Active 2016-08 Univers 0-12 ity of 00:00: [place] 00 Medical Branch 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 s Branch NAPROXEN DRUG Active N/V Univers INGREDI 8-29 ity of 00:00: [place] 00 Medical Branch NO KNOWN Drug Active Univers ALLERGIE Class ity of S [facility] [place] [facility] Social History Social Habit Start Date Stop Date Quantity Comments Source Exposure to Not sure [place] of SARS-CoV-2 [facility] [place] (event) Branch History of Cigarette Smoker Universi ty of tobacco use [facility] [place] [facility] Tobacco use and 2020-09-07 2020-09-07 Never used Universit y of exposure 00:00:00 00:00:00 [facility] [place] [facility] Alcohol intake 2020-09-07 2020-09-07 Current drinker Unive rsity of 00:00:00 00:00:00 of alcohol [facility] [place] (finding) Branch Tobacco Comment 2019-08-16 2019-08-16 Quit Universit y of 00:00:00 00:00:00 smoking/vaping [facility] earlier this year Branch Alcohol Comment 2016-09-30 2016-09-30 drnk liquor or Unive rsity of 00:00:00 00:00:00 beer a lot [facility] Sex Assigned At [birth year] Universit y of 00:00:00 00:00:00 [facility] [place] [facility] Smoking Status Start Date Stop Date Source Former smoker 2020-09-07 00:00:00 2020-09-07 00:00:00 Universi ty of [facility] [place] [facility] Current some day 2019-10-24 00:00:00 [facility] smoker Medical Branch Medications Ordered Filled Start Stop Current Ordering Indication Dosage Frequency Signature Comments Components Source Medication Medication Date Date Medication? Clinician (SIG) Name Name RAYMOND 150 2019-08 Yes [id number] Take 1 Univers mg capsule 2-21 capsule by ity of 00:00: mouth [place] 00 twice a Medical day for Branch neuropathi c pain as directed by physician. LYRICA 150 2019-08 Yes [id number] Take 1 [facility] mg capsule 2-21 capsule by ity of 00:00: mouth [place] 00 twice a Medical day for Branch neuropathi c pain as directed by physician. LYRICA 150 2019-08 Yes [id number] Take 1 Univers mg capsule 2-21 capsule by ity of 00:00: mouth [place] 00 twice a Medical day for Branch neuropathi c pain as directed by physician. LYRICA 150 2019-08 Yes [id number] Take 1 Univers mg capsule 2-21 capsule by ity of 00:00: mouth [place] 00 twice a Medical day for Branch neuropathi c pain as directed by physician. LYRICA 150 2019-08 Yes [id number] Take 1 Univers mg capsule 2-21 capsule by ity of 00:00: mouth [place] 00 twice a Medical day for Branch neuropathi c pain as directed by physician. LYRICA 150 2019-08 Yes [id number] Take 1 Univers mg capsule 2-21 capsule by ity of 00:00: mouth [place] 00 twice a Medical day for Branch neuropathi c pain as directed by physician. LYRICA 150 2019-08 Yes [id number] Take 1 Univers mg capsule 2-21 capsule by ity of 00:00: mouth [place] 00 twice a Medical day for Branch neuropathi c pain as directed by physician. DULOXETINE 2020-0 2020- No 60mg Take 60 mg [facility] HCL 05-17 by mouth 3 ity of (CYMBALTA 16:16: 00:[place] (three[place] :00 times Medical daily. Branch DULOXETINE 2020-0 2020- No 60mg Take 60 mg [facility] HCL 05-17 by mouth 3 ity of (CYMBALTA 16:16: 00:[place] (three[place] :00 times Medical daily. Branch DULOXETINE 2020-0 2020- No 60mg Take 60 mg [facility] HCL 05-17 by mouth 3 ity of (CYMBALTA 16:16: 00:00 (three[place] :00 times Medical daily. Branch aripiprazol 2020-0 2020- No 5mg Take 5 mg Univers e (ABILIFY 05-17 by mouth 2 it y of ORAL) 16:16: 00:00 (two) [place] 00 :00 times Medical daily. Branch aripiprazol 2020-0 2020- No 5mg Take 5 mg Univers e (ABILIFY 05-17 by mouth 2 it y of ORAL) 16:16: 00:00 (two) [place] 00 :00 times Medical daily. Branch aripiprazol 2020-0 2020- No 5mg Take 5 mg Univers e (ABILIFY 05-17 by mouth 2 it y of ORAL) 16:16: 00:00 (two) [place] 00 :00 times Medical daily. Branch ofloxacin 2020-0 Yes [id number] 5[drp] Place 5 Univers 0.3 % otic 9-17 [id number] Drops in ity of drops 00:00: both ears [place] 00 3 (three) Medical times Branch daily. ofloxacin 2020-0 Yes [id number] 5[drp] Place 5 Univers 0.3 % otic 9-17 [id number] Drops in ity of drops 00:00: both ears [place] 00 3 (three) Medical times Branch daily. ofloxacin 2020-0 Yes [id number] 5[drp] Place 5 Univers 0.3 % otic 9-17 [id number] Drops in ity of drops 00:00: both ears [place] 00 3 (three) Medical times Branch daily. ofloxacin 2020-0 Yes [id number] 5[drp] Place 5 Univers 0.3 % otic 9-17 [id number] Drops in ity of drops 00:00: both ears [place] 00 3 (three) Medical times Branch daily. ofloxacin 2020-0 Yes [id number] 5[drp] Place 5 Univers 0.3 % otic 9-17 [id number] Drops in ity of drops 00:00: both ears [place] 00 3 (three) Medical times Branch daily. ofloxacin 2020-0 Yes [id number] 5[drp] Place 5 Univers 0.3 % otic 9-17 [id number] Drops in ity of drops 00:00: both ears [place] 00 3 (three) Medical times Branch daily. ofloxacin 2020-0 Yes [id number] 5[drp] Place 5 Univers 0.3 % otic 9-17 [id number] Drops in ity of drops 00:00: both ears [place] 00 3 (three) Medical times Branch daily. ofloxacin 2020-0 Yes [id number] 5[drp] Place 5 Univers 0.3 % otic 9-17 [id number] Drops in ity of drops 00:00: both ears [place] 00 3 (three) Medical times Branch daily. ofloxacin 2020-0 Yes [id number] 5[drp] Place 5 Univers 0.3 % otic 9-17 [id number] Drops in ity of drops 00:00: both ears [place] 00 3 (three) Medical times Branch daily. ofloxacin 2020-0 Yes [id number] 5[drp] Place 5 Univers 0.3 % otic 9-17 [id number] Drops in ity of drops 00:00: both ears [place] 00 3 (three) Medical times Branch daily. ofloxacin 2020-0 Yes [id number] 5[drp] Place 5 Univers 0.3 % otic 9-17 [id number] Drops in ity of drops 00:00: both ears [place] 00 3 (three) Medical times Branch daily. ofloxacin 2020-0 Yes [id number] 5[drp] Place 5 Univers 0.3 % otic 9-17 [id number] Drops in ity of drops 00:00: both ears [place] 00 3 (three) Medical times Branch daily. ofloxacin 2020-0 Yes [id number] 5[drp] Place 5 Univers 0.3 % otic 05-17 [id number] Drops in ity of drops 00:00: both ears [place] 00 3 (three) Medical times Branch daily. ofloxacin 2020-0 Yes [id number] 5[drp] Place 5 Univers 0.3 % otic 9-17 [id number] Drops in ity of drops 00:00: both ears [place] 00 3 (three) Medical times Branch daily. ofloxacin 2020-0 Yes [id number] 5[drp] Place 5 Univers 0.3 % otic 05-17 [id number] Drops in ity of drops 00:00: both ears [place] 00 3 (three) Medical times Branch daily. acetaminoph 2019- No 4647 1{tbl} Take 1 U nivers en-codeine 05-1725 tablet by ity of (TYLENOL-CO 00:00: 04:59 [place] DEINE #3) 00 :00 every 4 Medical 300-30 mg (four) Branch tablet hours as needed for Pain (scale 7-10) for up to 7 days. Indication s: acute pain acetaminoph 2019- No 4647 1{tbl} Take 1 U nivers en-codeine 05-17- tablet by ity of (TYLENOL-CO 00:00: 04:59 [place] DEINE #3) 00 :00 every 4 Medical 300-30 mg (four) Branch tablet hours as needed for Pain (scale 7-10) for up to 7 days. Indication s: acute pain acetaminoph 2019- No 4647 1{tbl} Take 1 U nivers en-codeine 05-17- tablet by ity of (TYLENOL-CO 00:00: 04:59 [place] DEINE #3) 00 :00 every 4 Medical 300-30 mg (four) Branch tablet hours as needed for Pain (scale 7-10) for up to 7 days. Indication s: acute pain metoprolol 2019- Yes [id number] 50mg Take 1 Un nneka succinate 7-09 tablet by ity o f XL 50 mg 24 00:00: mouth [place] hr tablet 00 daily. Medical Branch hydroCHLORO 2019-0 Yes [id number] 25mg Take 1 Univers thiazide 25 7-09 tablet by ity of mg tablet 00:00: mouth [place] 00 daily. Medical Branch baclofen 10 2020-0 Yes [id number] 10mg Take 1 Univers mg tablet 7 [id number] tablet by ity of 00:00: mouth 3 [place] 00 (three) Medical times Branch daily as needed for Pain (scale 4-6). metoprolol 2020-0 Yes [id number] 50mg Take 1 Un nneka succinate 7-09 tablet by ity o f XL 50 mg 24 00:00: mouth [place] hr tablet 00 daily. Medical Branch hydroCHLORO 2020-0 Yes [id number] 25mg Take 1 Univers thiazide 25 7-09 tablet by ity of mg tablet 00:00: mouth [place] 00 daily. Medical Branch baclofen 10 2020-0 Yes [id number] 10mg Take 1 Univers mg tablet 03-08 [id number] tablet by ity of 00:00: mouth 3 [place] 00 (three) Medical times Branch daily as needed for Pain (scale 4-6). metoprolol 2020-0 Yes [id number] 50mg Take 1 Un nneka succinate 7-09 tablet by ity o f XL 50 mg 24 00:00: mouth [place] hr tablet 00 daily. Medical Branch hydroCHLORO 2020-0 Yes [id number] 25mg Take 1 Univers thiazide 25 7-09 tablet by ity of mg tablet 00:00: mouth [place] 00 daily. Medical Branch baclofen 10 2020-0 Yes [id number] 10mg Take 1 Univers mg tablet 03-08 [id number] tablet by ity of 00:00: mouth 3 [place] 00 (three) Medical times Branch daily as needed for Pain (scale 4-6). metoprolol 2020-0 Yes [id number] 50mg Take 1 Un nneka succinate 7-09 tablet by ity o f XL 50 mg 24 00:00: mouth [place] hr tablet 00 daily. Medical Branch hydroCHLORO 2020-0 Yes [id number] 25mg Take 1 Univers thiazide 25 7-09 tablet by ity of mg tablet 00:00: mouth [place] 00 daily. Medical Branch baclofen 10 2020-0 Yes [id number] 10mg Take 1 Univers mg tablet 7- [id number] tablet by ity of 00:00: mouth 3 [place] 00 (three) Medical times Branch daily as needed for Pain (scale 4-6). metoprolol 2020-0 Yes [id number] 50mg Take 1 Un nneka succinate 7-09 tablet by ity o f XL 50 mg 24 00:00: mouth [place] hr tablet 00 daily. Medical Branch hydroCHLORO 2020-0 Yes [id number] 25mg Take 1 Univers thiazide 25 7-09 tablet by ity of mg tablet 00:00: mouth [place] 00 daily. Medical Branch baclofen 10 2020-0 Yes [id number] 10mg Take 1 Univers mg tablet 03-08 [id number] tablet by ity of 00:00: mouth 3 [place] 00 (three) Medical times Branch daily as needed for Pain (scale 4-6). metoprolol 2020-0 Yes [id number] 50mg Take 1 Un nneka succinate 7-09 tablet by ity o f XL 50 mg 24 00:00: mouth [place] hr tablet 00 daily. Medical Branch hydroCHLORO 2020-0 Yes [id number] 25mg Take 1 Univers thiazide 25 7-09 tablet by ity of mg tablet 00:00: mouth [place] 00 daily. Medical Branch baclofen 10 2019-0 Yes [id number] 10mg Take 1 Univers mg tablet 03-08 [id number] tablet by ity of 00:00: mouth 3 [place] 00 (three) Medical times Branch daily as needed for Pain (scale 4-6). metoprolol 2020-0 Yes [id number] 50mg Take 1 Un nneka succinate 7-09 tablet by ity o f XL 50 mg 24 00:00: mouth [place] hr tablet 00 daily. Medical Branch hydroCHLORO 2020-0 Yes [id number] 25mg Take 1 Univers thiazide 25 7-09 tablet by ity of mg tablet 00:00: mouth [place] 00 daily. Medical Branch baclofen 10 2019-0 Yes [id number] 10mg Take 1 Univers mg tablet 03-08 [id number] tablet by ity of 00:00: mouth 3 [place] 00 (three) Medical times Branch daily as needed for Pain (scale 4-6). metoprolol 2020-0 Yes [id number] 50mg Take 1 Un nneka succinate 7-09 tablet by ity o f XL 50 mg 24 00:00: mouth [place] hr tablet 00 daily. Medical Branch hydroCHLORO 2020-0 Yes [id number] 25mg Take 1 Univers thiazide 25 7-09 tablet by ity of mg tablet 00:00: mouth [place] 00 daily. Medical Branch baclofen 10 2019-0 Yes [id number] 10mg Take 1 Univers mg tablet 03-08 [id number] tablet by ity of 00:00: mouth 3 [place] 00 (three) Medical times Branch daily as needed for Pain (scale 4-6). metoprolol 2020-0 Yes [id number] 50mg Take 1 Un nneka succinate 7-09 tablet by ity o f XL 50 mg 24 00:00: mouth [place] hr tablet 00 daily. Medical Branch hydroCHLORO 2020-0 Yes [id number] 25mg Take 1 Univers thiazide 25 7-09 tablet by ity of mg tablet 00:00: mouth [place] 00 daily. Medical Branch baclofen 10 2020-0 Yes [id number] 10mg Take 1 Univers mg tablet 7- [id number] tablet by ity of 00:00: mouth 3 [place] 00 (three) Medical times Branch daily as needed for Pain (scale 4-6). metoprolol 2020-0 Yes [id number] 50mg Take 1 Un nneka succinate 7-09 tablet by ity o f XL 50 mg 24 00:00: mouth [place] hr tablet 00 daily. Medical Branch hydroCHLORO 2020-0 Yes [id number] 25mg Take 1 Univers thiazide 25 7-09 tablet by ity of mg tablet 00:00: mouth [place] 00 daily. Medical Branch baclofen 10 2020-0 Yes [id number] 10mg Take 1 Univers mg tablet 03-08 [id number] tablet by ity of 00:00: mouth 3 [place] 00 (three) Medical times Branch daily as needed for Pain (scale 4-6). metoprolol 2020-0 Yes [id number] 50mg Take 1 Un nneka succinate 7-09 tablet by ity o f XL 50 mg 24 00:00: mouth [place] hr tablet 00 daily. Medical Branch hydroCHLORO 2020-0 Yes [id number] 25mg Take 1 Univers thiazide 25 7-09 tablet by ity of mg tablet 00:00: mouth [place] 00 daily. Medical Branch baclofen 10 2020-0 Yes [id number] 10mg Take 1 Univers mg tablet 7 [id number] tablet by ity of 00:00: mouth 3 [place] 00 (three) Medical times Branch daily as needed for Pain (scale 4-6). metoprolol 2020-0 Yes [id number] 50mg Take 1 Un nneka succinate 7-09 tablet by ity o f XL 50 mg 24 00:00: mouth [place] hr tablet 00 daily. Medical Branch hydroCHLORO 2020-0 Yes [id number] 25mg Take 1 Univers thiazide 25 7-09 tablet by ity of mg tablet 00:00: mouth [place] 00 daily. Medical Branch baclofen 10 2020-0 Yes [id number] 10mg Take 1 Univers mg tablet 7- [id number] tablet by ity of 00:00: mouth 3 [place] 00 (three) Medical times Branch daily as needed for Pain (scale 4-6). metoprolol 2020-0 Yes [id number] 50mg Take 1 Un nneka succinate 7-09 tablet by ity o f XL 50 mg 24 00:00: mouth [place] hr tablet 00 daily. Medical Branch hydroCHLORO 2020-0 Yes [id number] 25mg Take 1 Univers thiazide 25 7-09 tablet by ity of mg tablet 00:00: mouth [place] 00 daily. Medical Branch baclofen 10 2019-0 Yes [id number] 10mg Take 1 Univers mg tablet 7 [id number] tablet by ity of 00:00: mouth 3 [place] 00 (three) Medical times Branch daily as needed for Pain (scale 4-6). metoprolol 2020-0 Yes [id number] 50mg Take 1 Un nneka succinate 7-09 tablet by ity o f XL 50 mg 24 00:00: mouth [place] hr tablet 00 daily. Medical Branch hydroCHLORO 2020-0 Yes [id number] 25mg Take 1 Univers thiazide 25 7-09 tablet by ity of mg tablet 00:00: mouth [place] 00 daily. Medical Branch baclofen 10 2019-0 Yes [id number] 10mg Take 1 Univers mg tablet 03-08 [id number] tablet by ity of 00:00: mouth 3 [place] 00 (three) Medical times Branch daily as needed for Pain (scale 4-6). metoprolol 2020-0 Yes [id number] 50mg Take 1 Un nneka succinate 7-09 tablet by ity o f XL 50 mg 24 00:00: mouth [place] hr tablet 00 daily. Medical Branch hydroCHLORO 2020-0 Yes [id number] 25mg Take 1 Univers thiazide 25 7-09 tablet by ity of mg tablet 00:00: mouth [place] 00 daily. Medical Branch baclofen 10 2020-0 Yes [id number] 10mg Take 1 Univers mg tablet 7- [id number] tablet by ity of 00:00: mouth 3 [place] 00 (three) Medical times Branch daily as needed for Pain (scale 4-6). metoprolol 2020-0 Yes [id number] 50mg Take 1 Un nneka succinate 7-09 tablet by ity o f XL 50 mg 24 00:00: mouth [place] hr tablet 00 daily. Medical Branch hydroCHLORO 2020-0 Yes [id number] 25mg Take 1 Univers thiazide 25 7-09 tablet by ity of mg tablet 00:00: mouth [place] 00 daily. Medical Branch baclofen 10 2019-0 Yes [id number] 10mg Take 1 Univers mg tablet 03-08 [id number] tablet by ity of 00:00: mouth 3 [place] 00 (three) Medical times Branch daily as needed for Pain (scale 4-6). metoprolol 2020-0 Yes [id number] 50mg Take 1 Un nneka succinate 7-09 tablet by ity o f XL 50 mg 24 00:00: mouth [place] hr tablet 00 daily. Medical Branch hydroCHLORO 2019-0 Yes [id number] 25mg Take 1 Univers thiazide 25 7-09 tablet by ity of mg tablet 00:00: mouth [place] 00 daily. Medical Branch baclofen 10 2019-0 Yes [id number] 10mg Take 1 Univers mg tablet 03-08 [id number] tablet by ity of 00:00: mouth 3 [place] 00 (three) Medical times Branch daily as needed for Pain (scale 4-6). metoprolol 2020-0 Yes [id number] 50mg Take 1 Un nneka succinate 7-09 tablet by ity o f XL 50 mg 24 00:00: mouth [place] hr tablet 00 daily. Medical Branch hydroCHLORO 2019-0 Yes [id number] 25mg Take 1 Univers thiazide 25 7-09 tablet by ity of mg tablet 00:00: mouth [place] 00 daily. Medical Branch baclofen 10 2019-0 Yes [id number] 10mg Take 1 Univers mg tablet 03-08 [id number] tablet by ity of 00:00: mouth 3 [place] 00 (three) Medical times Branch daily as needed for Pain (scale 4-6). metoprolol 2020-0 Yes [id number] 50mg Take 1 Un nneka succinate 7-09 tablet by ity o f XL 50 mg 24 00:00: mouth [place] hr tablet 00 daily. Medical Branch hydroCHLORO 2020-0 Yes [id number] 25mg Take 1 Univers thiazide 25 7-09 tablet by ity of mg tablet 00:00: mouth [place] 00 daily. Medical Branch baclofen 10 2019-0 Yes [id number] 10mg Take 1 Univers mg tablet 7- [id number] tablet by ity of 00:00: mouth 3 [place] 00 (three) Medical times Branch daily as needed for Pain (scale 4-6). metoprolol 2020-0 Yes [id number] 50mg Take 1 Un nneka succinate 7-09 tablet by ity o f XL 50 mg 24 00:00: mouth [place] hr tablet 00 daily. Medical Branch hydroCHLORO 2020-0 Yes [id number] 25mg Take 1 Univers thiazide 25 7-09 tablet by ity of mg tablet 00:00: mouth [place] 00 daily. Medical Branch baclofen 10 2020-0 Yes [id number] 10mg Take 1 Univers mg tablet 7- [id number] tablet by ity of 00:00: mouth 3 [place] 00 (three) Medical times Branch daily as needed for Pain (scale 4-6). metoprolol 2020-0 Yes [id number] 50mg Take 1 Un nneka succinate 7-09 tablet by ity o f XL 50 mg 24 00:00: mouth [place] hr tablet 00 daily. Medical Branch hydroCHLORO 2020-0 Yes [id number] 25mg Take 1 Univers thiazide 25 7-09 tablet by ity of mg tablet 00:00: mouth [place] 00 daily. Medical Branch baclofen 10 2020-0 Yes [id number] 10mg Take 1 Univers mg tablet 03-08 [id number] tablet by ity of 00:00: mouth 3 [place] 00 (three) Medical times Branch daily as needed for Pain (scale 4-6). metoprolol 2020-0 Yes [id number] 50mg Take 1 Un nneka succinate 7-09 tablet by ity o f XL 50 mg 24 00:00: mouth [place] hr tablet 00 daily. Medical Branch hydroCHLORO 2020-0 Yes [id number] 25mg Take 1 Univers thiazide 25 7-09 tablet by ity of mg tablet 00:00: mouth [place] 00 daily. Medical Branch baclofen 10 2020-0 Yes [id number] 10mg Take 1 Univers mg tablet 03-08 [id number] tablet by ity of 00:00: mouth 3 [place] 00 (three) Medical times Branch daily as needed for Pain (scale 4-6). metoprolol 2020-0 Yes [id number] 50mg Take 1 Un nneka succinate 7-09 tablet by ity o f XL 50 mg 24 00:00: mouth [place] hr tablet 00 daily. Medical Branch hydroCHLORO 2020-0 Yes [id number] 25mg Take 1 Univers thiazide 25 7-09 tablet by ity of mg tablet 00:00: mouth [place] 00 daily. Medical Branch baclofen 10 2020-0 Yes [id number] 10mg Take 1 Univers mg tablet 7 [id number] tablet by ity of 00:00: mouth 3 [place] 00 (three) Medical times Branch daily as needed for Pain (scale 4-6). metoprolol 2020-0 Yes [id number] 50mg Take 1 Un nneka succinate 7-09 tablet by ity o f XL 50 mg 24 00:00: mouth [place] hr tablet 00 daily. Medical Branch hydroCHLORO 2020-0 Yes [id number] 25mg Take 1 Univers thiazide 25 7-09 tablet by ity of mg tablet 00:00: mouth [place] 00 daily. Medical Branch baclofen 10 2020-0 Yes [id number] 10mg Take 1 Univers mg tablet 7 [id number] tablet by ity of 00:00: mouth 3 [place] 00 (three) Medical times Branch daily as needed for Pain (scale 4-6). metoprolol 2020-0 Yes [id number] 50mg Take 1 Un nneka succinate 7-09 tablet by ity o f XL 50 mg 24 00:00: mouth [place] hr tablet 00 daily. Medical Branch hydroCHLORO 2020-0 Yes [id number] 25mg Take 1 Univers thiazide 25 7-09 tablet by ity of mg tablet 00:00: mouth [place] 00 daily. Medical Branch baclofen 10 2020-0 Yes [id number] 10mg Take 1 Univers mg tablet 03-08 [id number] tablet by ity of 00:00: mouth 3 [place] 00 (three) Medical times Branch daily as needed for Pain (scale 4-6). DULOXETINE 2020-0 Yes 60mg Take 60 mg U nivers HCL 2-25 by mouth 3 ity of (CYMBALTA 14:58: (three) [place] ORAL) 32 times Medical daily. Branch VITAMIN B 2020-0 Yes Take by Unive rs COMPLEX 2-25 mouth. ity of ORAL 14:58: [place] [address] Medical Branch traZODONE 2020-0 Yes 100mg Take 100 Uni vers 100 mg 2-25 mg by ity of tablet 14:58: mouth at [place] [address] bedtime. Medical Branch benztropine 2020-0 Yes 1mg Take 1 mg U nivers 1 mg tablet 2-25 by mouth ity of 14:58: daily. [place] [address] Medical Branch DULOXETINE 2020-0 Yes 60mg Take 60 mg U nivers HCL 2-25 by mouth 3 ity of (CYMBALTA 14:58: (three) [place] ORAL) 32 times Medical daily. Branch VITAMIN B 2020-0 Yes Take by Unive rs COMPLEX 2-25 mouth. ity of ORAL 14:58: [place] [address] Medical Branch traZODONE 2020-0 Yes 100mg Take 100 Uni vers 100 mg 2-25 mg by ity of tablet 14:58: mouth at [place] [address] bedtime. Medical Branch benztropine 2020-0 Yes 1mg Take 1 mg U nivers 1 mg tablet 2-25 by mouth ity of 14:58: daily. [place] [address] Medical Branch DULOXETINE 2020-0 Yes 60mg Take 60 mg U nivers HCL 2-25 by mouth 3 ity of (CYMBALTA 14:58: (three) [place] ORAL) 32 times Medical daily. Branch VITAMIN B 2020-0 Yes Take by Unive rs COMPLEX 2-25 mouth. ity of ORAL 14:58: [place] [address] Medical Branch traZODONE 2020-0 Yes 100mg Take 100 Uni vers 100 mg 2-25 mg by ity of tablet 14:58: mouth at [place] [address] bedtime. Medical Branch benztropine 2020-0 Yes 1mg Take 1 mg U nivers 1 mg tablet 2-25 by mouth ity of 14:58: daily. [place] [address] Medical Branch DULOXETINE 2020-0 Yes 60mg Take 60 mg U nivers HCL 2-25 by mouth 3 ity of (CYMBALTA 14:58: (three) [place] ORAL) 32 times Medical daily. Branch VITAMIN B 2020-0 Yes Take by Unive rs COMPLEX 2-25 mouth. ity of ORAL 14:58: [place] [address] Medical Branch traZODONE 2020-0 Yes 100mg Take 100 Uni vers 100 mg 2-25 mg by ity of tablet 14:58: mouth at [place] [address] bedtime. Medical Branch benztropine 2020-0 Yes 1mg Take 1 mg U nivers 1 mg tablet 2-25 by mouth ity of 14:58: daily. [place] [address] Medical Branch DULOXETINE 2020-0 Yes 60mg Take 60 mg U nivers HCL 2-25 by mouth 3 ity of (CYMBALTA 14:58: (three) [place] ORAL) 32 times Medical daily. Branch VITAMIN B 2020-0 Yes Take by Unive rs COMPLEX 2-25 mouth. ity of ORAL 14:58: [place] [address] Medical Branch traZODONE 2020-0 Yes 100mg Take 100 Uni vers 100 mg 2-25 mg by ity of tablet 14:58: mouth at [place] [address] bedtime. Medical Branch benztropine 2020-0 Yes 1mg Take 1 mg U nivers 1 mg tablet 2-25 by mouth ity of 14:58: daily. [place] [address] Medical Branch DULOXETINE 2020-0 Yes 60mg Take 60 mg U nivers HCL 2-25 by mouth 3 ity of (CYMBALTA 14:58: (three) [place] ORAL) 32 times Medical daily. Branch VITAMIN B 2020-0 Yes Take by Unive rs COMPLEX 2-25 mouth. ity of ORAL 14:58: [place] [address] [facility] Branch traZODONE 2020-0 Yes 100mg Take 100 Uni vers 100 mg 2-25 mg by ity of tablet 14:58: mouth at [place] [address] bedtime. Medical Branch benztropine 2020-0 Yes 1mg Take 1 mg U nivers 1 mg tablet 2-25 by mouth ity of 14:58: daily. [place] [address] [facility] Branch DULOXETINE 2020-0 Yes 60mg Take 60 mg U nivers HCL 2-25 by mouth 3 ity of (CYMBALTA 14:58: (three) [place] ORAL) 32 times Medical daily. Branch VITAMIN B 2020-0 Yes Take by Unive rs COMPLEX 2-25 mouth. ity of ORAL 14:58: [place] [address] [facility] Branch traZODONE 2020-0 Yes 100mg Take 100 Uni vers 100 mg 2-25 mg by ity of tablet 14:58: mouth at [place] [address] bedtime. Medical Branch benztropine 2020-0 Yes 1mg Take 1 mg U nivers 1 mg tablet 2-25 by mouth ity of 14:58: daily. [place] [address] [facility] Branch DULOXETINE 2020-0 Yes 60mg Take 60 mg U nivers HCL 2-25 by mouth 3 ity of (CYMBALTA 14:58: (three) [place] ORAL) 32 times Medical daily. Branch VITAMIN B 2020-0 Yes Take by Unive rs COMPLEX 2-25 mouth. ity of ORAL 14:58: [place] [address] [facility] Branch traZODONE 2020-0 Yes 100mg Take 100 Uni vers 100 mg 2-25 mg by ity of tablet 14:58: mouth at [place] [address] bedtime. Medical Branch benztropine 2020-0 Yes 1mg Take 1 mg U nivers 1 mg tablet 2-25 by mouth ity of 14:58: daily. [place] [address] [facility] Branch DULOXETINE 2020-0 Yes 60mg Take 60 mg U nivers HCL 2-25 by mouth 3 ity of (CYMBALTA 14:58: (three) [place] ORAL) 32 times Medical daily. Branch VITAMIN B 2020-0 Yes Take by Unive rs COMPLEX 2-25 mouth. ity of ORAL 14:58: [place] [address] [facility] Branch traZODONE 2020-0 Yes 100mg Take 100 Uni vers 100 mg 2-25 mg by ity of tablet 14:58: mouth at [place] [address] bedtime. Medical Branch benztropine 2020-0 Yes 1mg Take 1 mg U nivers 1 mg tablet 2-25 by mouth ity of 14:58: daily. [place] [address] [facility] Branch DULOXETINE 2020-0 Yes 60mg Take 60 mg U nivers HCL 2-25 by mouth 3 ity of (CYMBALTA 14:58: (three) [place] ORAL) 32 times Medical daily. Branch VITAMIN B 2020-0 Yes Take by Unive rs COMPLEX 2-25 mouth. ity of ORAL 14:58: [place] [address] [facility] Branch traZODONE 2020-0 Yes 100mg Take 100 Uni vers 100 mg 2-25 mg by ity of tablet 14:58: mouth at [place] [address] bedtime. Medical Branch benztropine 2020-0 Yes 1mg Take 1 mg U nivers 1 mg tablet 2-25 by mouth ity of 14:58: daily. [place] [address] [facility] Branch DULOXETINE 2020-0 Yes 60mg Take 60 mg U nivers HCL 2-25 by mouth 3 ity of (CYMBALTA 14:58: (three) [place] ORAL) 32 times Medical daily. Branch VITAMIN B 2020-0 Yes Take by Unive rs COMPLEX 2-25 mouth. ity of ORAL 14:58: [place] [address] [facility] Branch traZODONE 2020-0 Yes 100mg Take 100 Uni vers 100 mg 2-25 mg by ity of tablet 14:58: mouth at [place] [address] bedtime. Medical Branch benztropine 2020-0 Yes 1mg Take 1 mg U nivers 1 mg tablet 2-25 by mouth ity of 14:58: daily. [place] [address] [facility] Branch DULOXETINE 2020-0 Yes 60mg Take 60 mg U nivers HCL 2-25 by mouth 3 ity of (CYMBALTA 14:58: (three) [place] ORAL) 32 times Medical daily. Branch VITAMIN B 2020-0 Yes Take by Un[facility] rs COMPLEX 2-25 mouth. ity of ORAL 14:58: [place] [address] [facility] Branch traZODONE 2020-0 Yes 100mg Take 100 Uni vers 100 mg 2-25 mg by ity of tablet 14:58: mouth at [place] [address] bedtime. Medical Branch benztropine 2020-0 Yes 1mg Take 1 mg U nivers 1 mg tablet 2-25 by mouth ity of 14:58: daily. [place] [address] [facility] Branch DULOXETINE 2020-0 Yes 60mg Take 60 mg U nivers HCL 2-25 by mouth 3 ity of (CYMBALTA 14:58: (three) [place] ORAL) 32 times Medical daily. Branch VITAMIN B 2020-0 Yes Take by Unive rs COMPLEX 2-25 mouth. ity of ORAL 14:58: [place] [address] [facility] Branch traZODONE 2020-0 Yes 100mg Take 100 Uni vers 100 mg 2-25 mg by ity of tablet 14:58: mouth at [place] [address] bedtime. Medical Branch benztropine 2020-0 Yes 1mg Take 1 mg U nivers 1 mg tablet 2-25 by mouth ity of 14:58: daily. [place] [address] [facility] Branch DULOXETINE 2020-0 Yes 60mg Take 60 mg U nivers HCL 2-25 by mouth 3 ity of (CYMBALTA 14:58: (three) [place] ORAL) 32 times Medical daily. Branch VITAMIN B 2020-0 Yes Take by Unive rs COMPLEX 2-25 mouth. ity of ORAL 14:58: [place] [address] [facility] Branch traZODONE 2020-0 Yes 100mg Take 100 Uni vers 100 mg 2-25 mg by ity of tablet 14:58: mouth at [place] [address] bedtime. Medical Branch benztropine 2020-0 Yes 1mg Take 1 mg U nivers 1 mg tablet 2-25 by mouth ity of 14:58: daily. [place] [address] [facility] Branch DULOXETINE 2020-0 Yes 60mg Take 60 mg U nivers HCL 2-25 by mouth 3 ity of (CYMBALTA 14:58: (three) [place] ORAL) 32 times Medical daily. Branch VITAMIN B 2020-0 Yes Take by Unive rs COMPLEX 2-25 mouth. ity of ORAL 14:58: [place] [address] [facility] Branch traZODONE 2020-0 Yes 100mg Take 100 Uni vers 100 mg 2-25 mg by ity of tablet 14:58: mouth at [place] [address] bedtime. Medical Branch benztropine 2020-0 Yes 1mg Take 1 mg U nivers 1 mg tablet 2-25 by mouth ity of 14:58: daily. [place] [address] [facility] Branch DULOXETINE 2020-0 Yes 60mg Take 60 mg U nivers HCL 2-25 by mouth 3 ity of (CYMBALTA 14:58: (three) [place] ORAL) 32 times Medical daily. Branch VITAMIN B 2020-0 Yes Take by Unive rs COMPLEX 2-25 mouth. ity of ORAL 14:58: [place] [address] [facility] Branch traZODONE 2020-0 Yes 100mg Take 100 Uni vers 100 mg 2-25 mg by ity of tablet 14:58: mouth at [place] [address] bedtime. Medical Branch benztropine 2020-0 Yes 1mg Take 1 mg U nivers 1 mg tablet 2-25 by mouth ity of 14:58: daily. [place] [address] [facility] Branch DULOXETINE 2020-0 Yes 60mg Take 60 mg U nivers HCL 2-25 by mouth 3 ity of (CYMBALTA 14:58: (three) [place] ORAL) 32 times Medical daily. Branch VITAMIN B 2020-0 Yes Take by Unive rs COMPLEX 2-25 mouth. ity of ORAL 14:58: [place] [address] [facility] Branch traZODONE 2020-0 Yes 100mg Take 100 Uni vers 100 mg 2-25 mg by ity of tablet 14:58: mouth at [place] [address] bedtime. Medical Branch benztropine 2020-0 Yes 1mg Take 1 mg U nivers 1 mg tablet 2-25 by mouth ity of 14:58: daily. [place] [address] [facility] Branch VITAMIN B 2020-0 Yes Take by Unive rs COMPLEX 2-25 mouth. ity of ORAL 14:58: [place] [address] [facility] Branch traZODONE 2020-0 Yes 100mg Take 100 Uni vers 100 mg 2-25 mg by ity of tablet 14:58: mouth at [place] [address] bedtime. Medical Branch benztropine 2020-0 Yes 1mg Take 1 mg U nivers 1 mg tablet 2-25 by mouth ity of 14:58: daily. [place] [address] [facility] Branch VITAMIN B 2020-0 Yes Take by Unive rs COMPLEX 2-25 mouth. ity of ORAL 14:58: [address] traZODONE 2020-0 Yes 100mg Take 100 Uni vers 100 mg 2-25 mg by ity of tablet 14:58: mouth at [place] [address] bedtime. Medical Branch benztropine 2020-0 Yes 1mg Take 1 mg U nivers 1 mg tablet 2-25 by mouth ity of 14:58: daily. [address] VITAMIN B 2020-0 Yes Take by Unive rs COMPLEX 2-25 mouth. ity of ORAL 14:58: [address] traZODONE 2020-0 Yes 100mg Take 100 Uni vers 100 mg 2-25 mg by ity of tablet 14:58: mouth at [place] [address] bedtime. Medical Branch benztropine 2020-0 Yes 1mg Take 1 mg U nivers 1 mg tablet 2-25 by mouth ity of 14:58: daily. [address] VITAMIN B 2020-0 Yes Take by Unive rs COMPLEX 2-25 mouth. ity of ORAL 14:58: [address] traZODONE 2020-0 Yes 100mg Take 100 Uni vers 100 mg 2-25 mg by ity of tablet 14:58: mouth at [place] [address] bedtime. Medical Branch benztropine 2020-0 Yes 1mg Take 1 mg U nivers 1 mg tablet 2-25 by mouth ity of 14:58: daily. [address] VITAMIN B 2020-0 Yes Take by Unive rs COMPLEX 2-25 mouth. ity of ORAL 14:58: [address] traZODONE 2020-0 Yes 100mg Take 100 Uni vers 100 mg 2-25 mg by ity of tablet 14:58: mouth at [place] [address] bedtime. Medical Branch benztropine 2020-0 Yes 1mg Take 1 mg U nivers 1 mg tablet 2-25 by mouth ity of 14:58: daily. [address] VITAMIN B 2020-0 Yes Take by Unive rs COMPLEX 2-25 mouth. ity of ORAL 14:58: [address] traZODONE 2020-0 Yes 100mg Take 100 Uni vers 100 mg 2-25 mg by ity of tablet 14:58: mouth at [place] [address] bedtime. Medical Branch benztropine 2020-0 Yes 1mg Take 1 mg U nivers 1 mg tablet 2-25 by mouth ity of 14:58: daily. [address] VITAMIN B 2020-0 Yes Take by Unive rs COMPLEX 2-25 mouth. ity of ORAL 14:58: [address] traZODONE 2020-0 Yes 100mg Take 100 Uni vers 100 mg 2-25 mg by ity of tablet 14:58: mouth at [place] [address] bedtime. Medical Branch benztropine 2020-0 Yes 1mg Take 1 mg U nivers 1 mg tablet 2-25 by mouth ity of 14:58: daily. [address] VITAMIN B 2020-0 Yes Take by Unive rs COMPLEX 2-25 mouth. ity of ORAL 14:58: [address] traZODONE 2020-0 Yes 100mg Take 100 Uni vers 100 mg 2-25 mg by ity of tablet 14:58: mouth at [place] [address] bedtime. Medical Branch benztropine 2020-0 Yes 1mg Take 1 mg U nivers 1 mg tablet 2-25 by mouth ity of 14:58: daily. [address] VITAMIN B 2020-0 Yes Take by Unive rs COMPLEX 2-25 mouth. ity of ORAL 14:58: [address] traZODONE 2020-0 Yes 100mg Take 100 Uni vers 100 mg 2-25 mg by ity of tablet 14:58: mouth at [place] [address] bedtime. Medical Branch benztropine 2020-0 Yes 1mg Take 1 mg U nivers 1 mg tablet 2-25 by mouth ity of 14:58: daily. [address] VITAMIN B 2020-0 Yes Take by Unive rs COMPLEX 2-25 mouth. ity of ORAL 14:58: [address] traZODONE 2020-0 Yes 100mg Take 100 Uni vers 100 mg 2-25 mg by ity of tablet 14:58: mouth at [place] [address] bedtime. Medical Branch benztropine 2020-0 Yes 1mg Take 1 mg U nivers 1 mg tablet 2-25 by mouth ity of 14:58: daily. [address] VITAMIN B 2020-0 Yes Take by Unive rs COMPLEX 2-25 mouth. ity of ORAL 14:58: [address] traZODONE 2020-0 Yes 100mg Take 100 Uni vers 100 mg 2-25 mg by ity of tablet 14:58: mouth at [place] [address] bedtime. Medical Branch benztropine 2020-0 Yes 1mg Take 1 mg U nivers 1 mg tablet 2-25 by mouth ity of 14:58: daily. [address] VITAMIN B 2020-0 Yes Take by Unive rs COMPLEX 2-25 mouth. ity of ORAL 14:58: [address] traZODONE 2020-0 Yes 100mg Take 100 Uni vers 100 mg 2-25 mg by ity of tablet 14:58: mouth at [place] [address] bedtime. Medical Branch benztropine 2020-0 Yes 1mg Take 1 mg U nivers 1 mg tablet 2-25 by mouth ity of 14:58: daily. [address] VITAMIN B 2020-0 Yes Take by Unive rs COMPLEX 2-25 mouth. ity of ORAL 14:58: [address] traZODONE 2020-0 Yes 100mg Take 100 Uni vers 100 mg 2-25 mg by ity of tablet 14:58: mouth at [place] [address] bedtime. [facility] Branch benztropine 2020-0 Yes 1mg Take 1 mg U nivers 1 mg tablet 2-25 by mouth ity of 14:58: daily. [address] VITAMIN B 2020-0 Yes Take by Unive rs COMPLEX 2-25 mouth. ity of ORAL 14:58: [address] traZODONE 2020-0 Yes 100mg Take 100 Uni vers 100 mg 2-25 mg by ity of tablet 14:58: mouth at [place] [address] bedtime. [facility] Branch benztropine 2020-0 Yes 1mg Take 1 mg U nivers 1 mg tablet 2-25 by mouth ity of 14:58: daily. [address] VITAMIN B 2020-0 Yes Take by Unive rs COMPLEX 2-25 mouth. ity of ORAL 14:58: [address] traZODONE 2020-0 Yes 100mg Take 100 Uni vers 100 mg 2-25 mg by ity of tablet 14:58: mouth at [place] [address] bedtime. Medical Branch benztropine 2020-0 Yes 1mg Take 1 mg U nivers 1 mg tablet 2-25 by mouth ity of 14:58: daily. [address] aripiprazol 2020-0 Yes 5mg Take 5 mg U nivers e (ABILIFY 2-25 by mouth 2 ity of ORAL) 14:58: (two) [address] daily[address] Branch ARIPiprazol 2020-0 Yes 10mg Take 10 mg Univers e 10 mg 2-25 by mouth 2 ity of tablet 14:58: (two) [place] 06 times Medical daily. Branch aripiprazol 2020-0 Yes 5mg Take 5 mg U nivers e (ABILIFY 2-25 by mouth 2 ity of ORAL) 14:58: (two) [place] 06 times Medical daily. Branch ARIPiprazol 2020-0 Yes 10mg Take 10 mg Univers e 10 mg 2-25 by mouth 2 ity of tablet 14:58: (two) [place] 06 times Medical daily. Branch aripiprazol 2020-0 Yes 5mg Take 5 mg U nivers e (ABILIFY 2-25 by mouth 2 ity of ORAL) 14:58: (two) [place] 06 times Medical daily. Branch ARIPiprazol 2020-0 Yes 10mg Take 10 mg Univers e 10 mg 2-25 by mouth 2 ity of tablet 14:58: (two) [place] 06 times Medical daily. Branch aripiprazol 2020-0 Yes 5mg Take 5 mg U nivers e (ABILIFY 2-25 by mouth 2 ity of ORAL) 14:58: (two) [place] 06 times Medical daily. Branch ARIPiprazol 2020-0 Yes 10mg Take 10 mg Univers e 10 mg 2-25 by mouth 2 ity of tablet 14:58: (two) [place] 06 times Medical daily. Branch aripiprazol 2020-0 Yes 5mg Take 5 mg U nivers e (ABILIFY 2-25 by mouth 2 ity of ORAL) 14:58: (two) [place] 06 times Medical daily. Branch ARIPiprazol 2020-0 Yes 10mg Take 10 mg Univers e 10 mg 2-25 by mouth 2 ity of tablet 14:58: (two) [place] 06 times Medical daily. Branch aripiprazol 2020-0 Yes 5mg Take 5 mg U nivers e (ABILIFY 2-25 by mouth 2 ity of ORAL) 14:58: (two) [place] 06 times Medical daily. Branch ARIPiprazol 2020-0 Yes 10mg Take 10 mg Univers e 10 mg 2-25 by mouth 2 ity of tablet 14:58: (two) [place] 06 times Medical daily. Branch aripiprazol 2020-0 Yes 5mg Take 5 mg U nivers e (ABILIFY 2-25 by mouth 2 ity of ORAL) 14:58: (two) [place] 06 times Medical daily. Branch ARIPiprazol 2020-0 Yes 10mg Take 10 mg Univers e 10 mg 2-25 by mouth 2 ity of tablet 14:58: (two) [place] 06 times Medical daily. Branch aripiprazol 2020-0 Yes 5mg Take 5 mg U nivers e (ABILIFY 2-25 by mouth 2 ity of ORAL) 14:58: (two) [place] 06 times Medical daily. Branch ARIPiprazol 2020-0 Yes 10mg Take 10 mg Univers e 10 mg 2-25 by mouth 2 ity of tablet 14:58: (two) [place] 06 times Medical daily. Branch aripiprazol 2020-0 Yes 5mg Take 5 mg U nivers e (ABILIFY 2-25 by mouth 2 ity of ORAL) 14:58: (two) [place] 06 times Medical daily. Branch ARIPiprazol 2020-0 Yes 10mg Take 10 mg Univers e 10 mg 2-25 by mouth 2 ity of tablet 14:58: (two) [place] 06 times Medical daily. Branch aripiprazol 2020-0 Yes 5mg Take 5 mg U nivers e (ABILIFY 2-25 by mouth 2 ity of ORAL) 14:58: (two) [place] 06 times Medical daily. Branch ARIPiprazol 2020-0 Yes 10mg Take 10 mg Univers e 10 mg 2-25 by mouth 2 ity of tablet 14:58: (two) [place] 06 times Medical daily. Branch aripiprazol 2020-0 Yes 5mg Take 5 mg U nivers e (ABILIFY 2-25 by mouth 2 ity of ORAL) 14:58: (two) [place] 06 times Medical daily. Branch ARIPiprazol 2020-0 Yes 10mg Take 10 mg Univers e 10 mg 2-25 by mouth 2 ity of tablet 14:58: (two) [place] 06 times Medical daily. Branch aripiprazol 2020-0 Yes 5mg Take 5 mg U nivers e (ABILIFY 2-25 by mouth 2 ity of ORAL) 14:58: (two) [place] 06 times Medical daily. Branch ARIPiprazol 2020-0 Yes 10mg Take 10 mg Univers e 10 mg 2-25 by mouth 2 ity of tablet 14:58: (two) [place] 06 times Medical daily. Branch aripiprazol 2020-0 Yes 5mg Take 5 mg U nivers e (ABILIFY 2-25 by mouth 2 ity of ORAL) 14:58: (two) [place] 06 times Medical daily. Branch ARIPiprazol 2020-0 Yes 10mg Take 10 mg Univers e 10 mg 2-25 by mouth 2 ity of tablet 14:58: (two) [place] 06 times Medical daily. Branch aripiprazol 2020-0 Yes 5mg Take 5 mg U nivers e (ABILIFY 2-25 by mouth 2 ity of ORAL) 14:58: (two) [place] 06 times Medical daily. Branch ARIPiprazol 2020-0 Yes 10mg Take 10 mg Univers e 10 mg 2-25 by mouth 2 ity of tablet 14:58: (two) [place] 06 times Medical daily. Branch aripiprazol 2020-0 Yes 5mg Take 5 mg U nivers e (ABILIFY 2-25 by mouth 2 ity of ORAL) 14:58: (two) [place] 06 times Medical daily. Branch ARIPiprazol 2020-0 Yes 10mg Take 10 mg Univers e 10 mg 2-25 by mouth 2 ity of tablet 14:58: (two) [place] 06 times Medical daily. Branch aripiprazol 2020-0 Yes 5mg Take 5 mg U nivers e (ABILIFY 2-25 by mouth 2 ity of ORAL) 14:58: (two) [place] 06 times Medical daily. Branch ARIPiprazol 2020-0 Yes 10mg Take 10 mg Univers e 10 mg 2-25 by mouth 2 ity of tablet 14:58: (two) [place] 06 times Medical daily. Branch aripiprazol 2020-0 Yes 5mg Take 5 mg U nivers e (ABILIFY 2-25 by mouth 2 ity of ORAL) 14:58: (two) [place] 06 times Medical daily. Branch ARIPiprazol 2020-0 Yes 10mg Take 10 mg Univers e 10 mg 2-25 by mouth 2 ity of tablet 14:58: (two) [place] 06 times Medical daily. Branch ARIPiprazol 2020-0 Yes 10mg Take 10 mg Univers e 10 mg 2-25 by mouth 2 ity of tablet 14:58: (two) [place] 06 times Medical daily. Branch ARIPiprazol 2020-0 Yes 10mg Take 10 mg Univers e 10 mg 2-25 by mouth 2 ity of tablet 14:58: (two) [place] 06 times Medical daily. Branch ARIPiprazol 2020-0 Yes 10mg Take 10 mg Univers e 10 mg 2-25 by mouth 2 ity of tablet 14:58: (two) [place] 06 times Medical daily. Branch ARIPiprazol 2020-0 Yes 10mg Take 10 mg Univers e 10 mg 2-25 by mouth 2 ity of tablet 14:58: (two) [place] 06 times Medical daily. Branch ARIPiprazol 2020-0 Yes 10mg Take 10 mg Univers e 10 mg 2-25 by mouth 2 ity of tablet 14:58: (two) [place] 06 times Medical daily. Branch ARIPiprazol 2020-0 Yes 10mg Take 10 mg Univers e 10 mg 2-25 by mouth 2 ity of tablet 14:58: (two) [place] 06 times Medical daily. Branch ARIPiprazol 2020-0 Yes 10mg Take 10 mg Univers e 10 mg 2-25 by mouth 2 ity of tablet 14:58: (two) [place] 06 times Medical daily. Branch ARIPiprazol 2020-0 Yes 10mg Take 10 mg Univers e 10 mg 2-25 by mouth 2 ity of tablet 14:58: (two) [place] 06 times Medical daily. Branch ARIPiprazol 2020-0 Yes 10mg Take 10 mg Univers e 10 mg 2-25 by mouth 2 ity of tablet 14:58: (two) [place] 06 times Medical daily. Branch ARIPiprazol 2020-0 Yes 10mg Take 10 mg Univers e 10 mg 2-25 by mouth 2 ity of tablet 14:58: (two) [place] 06 times Medical daily. Branch ARIPiprazol 2020-0 Yes 10mg Take 10 mg Univers e 10 mg 2-25 by mouth 2 ity of tablet 14:58: (two) [place] 06 times Medical daily. Branch ARIPiprazol 2020-0 Yes 10mg Take 10 mg Univers e 10 mg 2-25 by mouth 2 ity of tablet 14:58: (two) [place] 06 times Medical daily. Branch ARIPiprazol 2020-0 Yes 10mg Take 10 mg Univers e 10 mg 2-25 by mouth 2 ity of tablet 14:58: (two) [place] 06 times Medical daily. Branch ARIPiprazol 2020-0 Yes 10mg Take 10 mg Univers e 10 mg 2-25 by mouth 2 ity of tablet 14:58: (two) [place] 06 times Medical daily. Branch ARIPiprazol 2020-0 Yes 10mg Take 10 mg Univers e 10 mg 2-25 by mouth 2 ity of tablet 14:58: (two) [place] 06 times Medical daily. Branch aripiprazol 2020-0 Yes 5mg Take 5 mg U nivers e (ABILIFY 2-24 by mouth 2 ity of ORAL) 17:16: (two) [place] 05 times Medical daily. Branch benztropine 2020-0 Yes 1mg Take 1 mg U nivers 1 mg tablet 2-24 by mouth ity of 17:16: daily. [place] [address] Medical Branch ARIPiprazol 2020-0 Yes 10mg Take 10 mg Univers e 10 mg 2-24 by mouth 2 ity of tablet 17:16: (two) [place] 05 times Medical daily. Branch aripiprazol 2020-0 Yes 5mg Take 5 mg U nivers e (ABILIFY 2-24 by mouth 2 ity of ORAL) 17:16: (two) [place] 05 times Medical daily. Branch benztropine 2020-0 Yes 1mg Take 1 mg U nivers 1 mg tablet 2-24 by mouth ity of 17:16: daily. [place] [address] Medical Branch ARIPiprazol 2020-0 Yes 10mg Take 10 mg Univers e 10 mg 2-24 by mouth 2 ity of tablet 17:16: (two) [place] 05 times Medical daily. Branch aripiprazol 2020-0 Yes 5mg Take 5 mg U nivers e (ABILIFY 2-24 by mouth 2 ity of ORAL) 17:16: (two) [place] 05 times Medical daily. Branch benztropine 2020-0 Yes 1mg Take 1 mg U nivers 1 mg tablet 2-24 by mouth ity of 17:16: daily. [place] [address] Medical Branch ARIPiprazol 2020-0 Yes 10mg Take 10 mg Univers e 10 mg 2-24 by mouth 2 ity of tablet 17:16: (two) [place] 05 times Medical daily. Branch DULOXETINE 2020-0 Yes 60mg Take 60 mg U nivers HCL 2-24 by mouth 3 ity of (CYMBALTA 17:15: (three) [place] ORAL) 45 times Medical daily. Branch VITAMIN B 2020-0 Yes Take by Unive rs COMPLEX 2-24 mouth. ity of ORAL 17:15: [place] 45 Medical Branch traZODONE 2020-0 Yes 100mg Take 100 Uni vers 100 mg 2-24 mg by ity of tablet 17:15: mouth at [place] 45 bedtime. Medical Branch DULOXETINE 2020-0 Yes 60mg Take 60 mg U nivers HCL 2-24 by mouth 3 ity of (CYMBALTA 17:15: (three) [place] ORAL) 45 times Medical daily. Branch VITAMIN B 2020-0 Yes Take by Unive rs COMPLEX 2-24 mouth. ity of ORAL 17:15: [place] 45 Medical Branch traZODONE 2020-0 Yes 100mg Take 100 Uni vers 100 mg 2-24 mg by ity of tablet 17:15: mouth at [place] [address] bedtime. Medical Branch DULOXETINE 2020-0 Yes 60mg Take 60 mg U nivers HCL 2-24 by mouth 3 ity of (CYMBALTA 17:15: (three) [place] ORAL) 45 times Medical daily. Branch VITAMIN B 2020-0 Yes Take by Unive rs COMPLEX 2-24 mouth. ity of ORAL 17:15: [place] 45 Medical Branch traZODONE 2020-0 Yes 100mg Take 100 Uni vers 100 mg 2-24 mg by ity of tablet 17:15: mouth at [place] [address] bedtime. Medical Branch OLANZapine 2020-0 2020- No 20mg Take 20 mg [facility] 20 mg 2-24 02-24 by mouth ity of tablet 17:15: 00:00 at [place] 35 :00 bedtime. Medical Branch OLANZapine 2020-0 2020- No 20mg Take 20 mg [facility] 20 mg 2-24 02-24 by mouth ity of tablet 17:15: 00:00 at [place] 35 :00 bedtime. Medical Branch OLANZapine 2020-0 2020- No 20mg Take 20 mg [facility] 20 mg 2-24 02-24 by mouth ity of tablet 17:15: 00:00 at [place] 35 :00 bedtime. Medical Branch OLANZapine 2020-0 2020- No 10mg Take 10 mg Univers (ZYPREXA) 2-24 02-24 by mouth 2 ity of 10 mg 17:15: 00:00 (two) [place] tablet 26 :00 times Medical daily. Branch OLANZapine 0 2020- No 10mg Take 10 mg Univers (ZYPREXA) 2-24 02-24 by mouth 2 ity of 10 mg 17:15: 00:00 (two) [place] tablet 26 :00 times Medical daily. Branch OLANZapine 2020- No 10mg Take 10 mg Univers (ZYPREXA) 2-24 02-24 by mouth 2 ity of 10 mg 17:15: 00:00 (two) [place] tablet 26 :00 times Medical daily. Branch DULoxetine 2020- No Take 3 Univ ers 30 mg 2-24 -24 capsules ity of capsule 17:15: 00:00 by mouth [place] 09 :00 daily. Medical Branch DULoxetine 2020- No Take 3 Univ ers 30 mg 2-24 02-24 capsules ity of capsule 17:15: 00:00 by mouth [place] 09 :00 daily. Medical Branch DULoxetine 2019- No Take 3 Univ ers 30 mg 2-24 -24 capsules ity of capsule 17:15: 00:00 by mouth [place] 09 :00 daily. Medical Branch metoprolol 2019-0 Yes [id number] 50mg Take 1 Un nneka succinate 2-24 tablet by ity o f XL 50 mg 24 00:00: mouth [place] hr tablet 00 daily. Medical Branch metoprolol 2020-0 Yes [id number] 50mg Take 1 Un nneka succinate 2-24 tablet by ity o f XL 50 mg 24 00:00: mouth [place] hr tablet 00 daily. Medical Branch metoprolol 2020-0 Yes [id number] 50mg Take 1 Un nneka succinate 2-24 tablet by ity o f XL 50 mg 24 00:00: mouth [place] hr tablet 00 daily. Medical Branch metoprolol 2020-0 Yes [id number] 50mg Take 1 Un nneka succinate 2-24 tablet by ity o f XL 50 mg 24 00:00: mouth [place] hr tablet 00 daily. Medical Branch metoprolol 2020-0 Yes [id number] 50mg Take 1 Un nneka succinate 2-24 tablet by ity o f XL 50 mg 24 00:00: mouth [place] hr tablet 00 daily. [facility] Branch metoprolol 2020-0 Yes [id number] 50mg Take 1 Un nneka succinate 2-24 tablet by ity o f XL 50 mg 24 00:00: mouth [place] hr tablet 00 daily. Medical Branch metoprolol 2019-0 Yes [id number] 50mg Take 1 Un nneka succinate 2-24 tablet by ity o f XL 50 mg 24 00:00: mouth [place] hr tablet 00 daily. Medical Branch metoprolol 2019-0 Yes [id number] 50mg Take 1 Un nneka succinate 2-24 tablet by ity o f XL 50 mg 24 00:00: mouth [place] hr tablet 00 daily. Medical Branch metoprolol 2019-0 Yes [id number] 50mg Take 1 Un nneka succinate 2-24 tablet by ity o f XL 50 mg 24 00:00: mouth [place] hr tablet 00 daily. Medical Branch metoprolol 2019-0 Yes [id number] 50mg Take 1 Un nneka succinate 2-24 tablet by ity o f XL 50 mg 24 00:00: mouth [place] hr tablet 00 daily. Medical Branch metoprolol 0 2019- No [id number] 50mg Take 1 U nivers succinate 2-24 07-09 tablet by ity of XL 50 mg 24 00:00: 00:00 mouth [place] hr tablet 00 :00 daily. [facility] metoprolol 0 2020- No [id number] 50mg Take 1 U nivers succinate 2-24 07-09 tablet by ity of XL 50 mg 24 00:00: 00:00 mouth [place] hr tablet 00 :00 daily. [facility] metoprolol 0 2020- No [id number] 50mg Take 1 U nivers succinate 2-24 07-09 tablet by ity of XL 50 mg 24 00:00: 00:00 mouth [place] hr tablet 00 :00 daily. [facility] metoprolol 0 2020- No [id number] 50mg Take 1 U nivers succinate 2-24 07-09 tablet by ity of XL 50 mg 24 00:00: 00:00 mouth [place] hr tablet 00 :00 daily. [facility] hydroCHLORO 2020-0 Yes [id number] 25mg Take 1 [facility] thiazide 25 1-30 tablet by ity of mg tablet 00:00: mouth [place] 00 daily. Medical Branch meloxicam 2019-0 Yes [id number] 15mg Take 1 U nivers 15 mg 1-30 tablet by ity of tablet 00:00: mouth [place] 00 daily. Medical Branch metoprolol 2019-0 Yes [id number] 25mg Take 1 Un nneka succinate 1-30 tablet by ity o f XL 25 mg 24 00:00: mouth [place] hr tablet 00 daily. [facility] pregabalin 2020-0 Yes [id number] 150mg Take 1 [facility] (LYRICA) 1-30 capsule by ity o f 150 mg 00:00: mouth 2 [place] capsule 00 (two) Medical times Branch daily. hydroCHLORO 2020-0 Yes [id number] 25mg Take 1 [facility] thiazide 25 1-30 tablet by ity of mg tablet 00:00: mouth [place] 00 daily. [facility] meloxicam 2020-0 Yes [id number] 15mg Take 1 U nivers 15 mg 1-30 tablet by ity of tablet 00:00: mouth [place] 00 daily. [facility] metoprolol 2020-0 Yes [id number] 25mg Take 1 Un nneka succinate 1-30 tablet by ity o f XL 25 mg 24 00:00: mouth [place] hr tablet 00 daily. [facility] pregabalin 2020-0 Yes [id number] 150mg Take 1 [facility] (LYRICA) 1-30 capsule by ity o f 150 mg 00:00: mouth 2 [place] capsule 00 (two) Medical times Branch daily. hydroCHLORO 2020-0 Yes [id number] 25mg Take 1 [facility] thiazide 25 1-30 tablet by ity of mg tablet 00:00: mouth [place] 00 daily. [facility] meloxicam 2020-0 Yes [id number] 15mg Take 1 U nivers 15 mg 1-30 tablet by ity of tablet 00:00: mouth [place] 00 daily. [facility] pregabalin 2020-0 Yes [id number] 150mg Take 1 [facility] (LYRICA) 1-30 capsule by ity o f 150 mg 00:00: mouth 2 [place] capsule 00 (two) Medical times Branch daily. hydroCHLORO 2020-0 Yes [id number] 25mg Take 1 [facility] thiazide 25 1-30 tablet by ity of mg tablet 00:00: mouth [place] 00 daily. [facility] meloxicam 2020-0 Yes [id number] 15mg Take 1 U nivers 15 mg 1-30 tablet by ity of tablet 00:00: mouth [place] 00 daily. [facility] pregabalin 2020-0 Yes [id number] 150mg Take 1 [facility] (LYRICA) 1-30 capsule by ity o f 150 mg 00:00: mouth 2 [place] capsule 00 (two) Medical times Branch daily. hydroCHLORO 2020-0 Yes [id number] 25mg Take 1 [facility] thiazide 25 1-30 tablet by ity of mg tablet 00:00: mouth [place] 00 daily. [facility] meloxicam 2020-0 Yes [id number] 15mg Take 1 U nivers 15 mg 1-30 tablet by ity of tablet 00:00: mouth [place] 00 daily. [facility] pregabalin 2020-0 Yes [id number] 150mg Take 1 [facility] (LYRICA) 1-30 capsule by ity o f 150 mg 00:00: mouth 2 [place] capsule 00 (two) Medical times Branch daily. hydroCHLORO 2020-0 Yes [id number] 25mg Take 1 [facility] thiazide 25 1-30 tablet by ity of mg tablet 00:00: mouth [place] 00 daily. [facility] meloxicam 2020-0 Yes [id number] 15mg Take 1 U nivers 15 mg 1-30 tablet by ity of tablet 00:00: mouth [place] 00 daily. [facility] pregabalin 2020-0 Yes [id number] 150mg Take 1 [facility] (LYRICA) 1-30 capsule by ity o f 150 mg 00:00: mouth 2 [place] capsule 00 (two) Medical times Branch daily. hydroCHLORO 2020-0 Yes [id number] 25mg Take 1 [facility] thiazide 25 1-30 tablet by ity of mg tablet 00:00: mouth [place] 00 daily. [facility] meloxicam 2020-0 Yes [id number] 15mg Take 1 U nivers 15 mg 1-30 tablet by ity of tablet 00:00: mouth [place] 00 daily. [facility] pregabalin 2020-0 Yes [id number] 150mg Take 1 [facility] (LYRICA) 1-30 capsule by ity o f 150 mg 00:00: mouth 2 [place] capsule 00 (two) Medical times Branch daily. hydroCHLORO 2020-0 Yes [id number] 25mg Take 1 [facility] thiazide 25 1-30 tablet by ity of mg tablet 00:00: mouth [place] 00 daily. [facility] meloxicam 2020-0 Yes [id number] 15mg Take 1 U nivers 15 mg 1-30 tablet by ity of tablet 00:00: mouth [place] 00 daily. [facility] pregabalin 2020-0 Yes [id number] 150mg Take 1 [facility] (LYRICA) 1-30 capsule by ity o f 150 mg 00:00: mouth 2 [place] capsule 00 (two) Medical times Branch daily. hydroCHLORO 2020-0 Yes [id number] 25mg Take 1 [facility] thiazide 25 1-30 tablet by ity of mg tablet 00:00: mouth [place] 00 daily. [facility] meloxicam 2020-0 Yes [id number] 15mg Take 1 U nivers 15 mg 1-30 tablet by ity of tablet 00:00: mouth [place] 00 daily. [facility] pregabalin 2020-0 Yes [id number] 150mg Take 1 [facility] (LYRICA) 1-30 capsule by ity o f 150 mg 00:00: mouth 2 [place] capsule 00 (two) Medical times Branch daily. hydroCHLORO 2020-0 Yes [id number] 25mg Take 1 [facility] thiazide 25 1-30 tablet by ity of mg tablet 00:00: mouth [place] 00 daily. [facility] meloxicam 2020-0 Yes [id number] 15mg Take 1 [facility] nivers 15 mg 1-30 tablet by ity of tablet 00:00: mouth [place] 00 daily. [facility] pregabalin 2020-0 Yes [id number] 150mg Take 1 [facility] (LYRICA) 1-30 capsule by ity o f 150 mg 00:00: mouth 2 [place] capsule 00 (two) Medical times Branch daily. hydroCHLORO 2020-0 Yes [id number] 25mg Take 1 [facility] thiazide 25 1-30 tablet by ity of mg tablet 00:00: mouth [place] 00 daily. [facility] meloxicam 2020-0 Yes [id number] 15mg Take 1 U nivers 15 mg 1-30 tablet by ity of tablet 00:00: mouth [place] 00 daily. [facility] pregabalin 2020-0 Yes [id number] 150mg Take 1 [facility] (LYRICA) 1-30 capsule by ity o f 150 mg 00:00: mouth 2 [place] capsule 00 (two) Medical times Branch daily. hydroCHLORO 2020-0 Yes [id number] 25mg Take 1 [facility] thiazide 25 1-30 tablet by ity of mg tablet 00:00: mouth [place] 00 daily. [facility] meloxicam 2020-0 Yes [id number] 15mg Take 1 [facility] nivers 15 mg 1-30 tablet by ity of tablet 00:00: mouth [place] 00 daily. [facility] pregabalin 2020-0 Yes [id number] 150mg Take 1 [facility] (LYRICA) 1-30 capsule by ity o f 150 mg 00:00: mouth 2 [place] capsule 00 (two) Medical times Branch daily. meloxicam 2020-0 Yes [id number] 15mg Take 1 [facility] nivers 15 mg 1-30 tablet by ity of tablet 00:00: mouth [place] 00 daily. [facility] pregabalin 2020-0 Yes [id number] 150mg Take 1 [facility] (LYRICA) 1-30 capsule by ity o f 150 mg 00:00: mouth 2 [place] capsule 00 (two) Medical times Branch daily. meloxicam 2020-0 Yes [id number] 15mg Take 1 U nivers 15 mg 1-30 tablet by ity of tablet 00:00: mouth [place] 00 daily. [facility] pregabalin 2020-0 Yes [id number] 150mg Take 1 [facility] (LYRICA) 1-30 capsule by ity o f 150 mg 00:00: mouth 2 [place] capsule 00 (two) Medical times Branch daily. meloxicam 2020-0 Yes [id number] 15mg Take 1 [facility] nivers 15 mg 1-30 tablet by ity of tablet 00:00: mouth [place] 00 daily. [facility] pregabalin 2020-0 Yes [id number] 150mg Take 1 [facility] (LYRICA) 1-30 capsule by ity o f 150 mg 00:00: mouth 2 [place] capsule 00 (two) Medical times Branch daily. meloxicam 2020-0 Yes [id number] 15mg Take 1 U nivers 15 mg 1-30 tablet by ity of tablet 00:00: mouth [place] 00 daily. [facility] pregabalin 2020-0 Yes [id number] 150mg Take 1 [facility] (LYRICA) 1-30 capsule by ity o f 150 mg 00:00: mouth 2 [place] capsule 00 (two) Medical times Branch daily. meloxicam 2020-0 Yes [id number] 15mg Take 1 [facility] nivers 15 mg 1-30 tablet by ity of tablet 00:00: mouth [place] 00 daily. [facility] pregabalin 2020-0 Yes [id number] 150mg Take 1 [facility] (LYRICA) 1-30 capsule by ity o f 150 mg 00:00: mouth 2 [place] capsule 00 (two) Medical times Branch daily. meloxicam 2020-0 Yes [id number] 15mg Take 1 U nivers 15 mg 1-30 tablet by ity of tablet 00:00: mouth [place] 00 daily. [facility] pregabalin 2020-0 Yes [id number] 150mg Take 1 [facility] (LYRICA) 1-30 capsule by ity o f 150 mg 00:00: mouth 2 [place] capsule 00 (two) Medical times Branch daily. meloxicam 2020-0 Yes [id number] 15mg Take 1 U nivers 15 mg 1-30 tablet by ity of tablet 00:00: mouth [place] 00 daily. [facility] pregabalin 2020-0 Yes [id number] 150mg Take 1 [facility] (LYRICA) 1-30 capsule by ity o f 150 mg 00:00: mouth 2 [place] capsule 00 (two) Medical times Branch daily. meloxicam 2020-0 Yes [id number] 15mg Take 1 U nivers 15 mg 1-30 tablet by ity of tablet 00:00: mouth [place] 00 daily. [facility] pregabalin 2020-0 Yes [id number] 150mg Take 1 [facility] (LYRICA) 1-30 capsule by ity o f 150 mg 00:00: mouth 2 [place] capsule 00 (two) Medical times Branch daily. meloxicam 2020-0 Yes [id number] 15mg Take 1 U nivers 15 mg 1-30 tablet by ity of tablet 00:00: mouth [place] 00 daily. [facility] pregabalin 2020-0 Yes [id number] 150mg Take 1 [facility] (LYRICA) 1-30 capsule by ity o f 150 mg 00:00: mouth 2 [place] capsule 00 (two) Medical times Branch daily. meloxicam 2020-0 Yes [id number] 15mg Take 1 U nivers 15 mg 1-30 tablet by ity of tablet 00:00: mouth [place] 00 daily. [facility] pregabalin 2020-0 Yes [id number] 150mg Take 1 [facility] (LYRICA) 1-30 capsule by ity o f 150 mg 00:00: mouth 2 [place] capsule 00 (two) Medical times Branch daily. meloxicam 2020-0 Yes [id number] 15mg Take 1 U nivers 15 mg 1-30 tablet by ity of tablet 00:00: mouth [place] 00 daily. [facility] pregabalin 2020-0 Yes [id number] 150mg Take 1 [facility] (LYRICA) 1-30 capsule by ity o f 150 mg 00:00: mouth 2 [place] capsule 00 (two) Medical times Branch daily. meloxicam 2020-0 Yes [id number] 15mg Take 1 U nivers 15 mg 1-30 tablet by ity of tablet 00:00: mouth [place] 00 daily. [facility] pregabalin 2020-0 Yes [id number] 150mg Take 1 [facility] (LYRICA) 1-30 capsule by ity o f 150 mg 00:00: mouth 2 [place] capsule 00 (two) Medical times Branch daily. meloxicam 2020-0 Yes [id number] 15mg Take 1 U nivers 15 mg 1-30 tablet by ity of tablet 00:00: mouth [place] 00 daily. [facility] pregabalin 2020-0 Yes [id number] 150mg Take 1 [facility] (LYRICA) 1-30 capsule by ity o f 150 mg 00:00: mouth 2 [place] capsule 00 (two) Medical times Branch daily. meloxicam 2020-0 Yes [id number] 15mg Take 1 U nivers 15 mg 1-30 tablet by ity of tablet 00:00: mouth [place] 00 daily. [facility] pregabalin 2020-0 Yes [id number] 150mg Take 1 [facility] (LYRICA) 1-30 capsule by ity o f 150 mg 00:00: mouth 2 [place] capsule 00 (two) Medical times Branch daily. meloxicam 2020-0 Yes [id number] 15mg Take 1 U nivers 15 mg 1-30 tablet by ity of tablet 00:00: mouth [place] 00 daily. [facility] pregabalin 2020-0 Yes [id number] 150mg Take 1 [facility] (LYRICA) 1-30 capsule by ity o f 150 mg 00:00: mouth 2 [place] capsule 00 (two) Medical times Branch daily. meloxicam 2020-0 Yes [id number] 15mg Take 1 U nivers 15 mg 1-30 tablet by ity of tablet 00:00: mouth [place] 00 daily. [facility] pregabalin 2020-0 Yes [id number] 150mg Take 1 [facility] (LYRICA) 1-30 capsule by ity o f 150 mg 00:00: mouth 2 [place] capsule 00 (two) Medical times Branch daily. meloxicam 2020-0 Yes [id number] 15mg Take 1 U nivers 15 mg 1-30 tablet by ity of tablet 00:00: mouth [place] 00 daily. [facility] pregabalin 2020-0 Yes [id number] 150mg Take 1 [facility] (LYRICA) 1-30 capsule by ity o f 150 mg 00:00: mouth 2 [place] capsule 00 (two) Medical times Branch daily. meloxicam 2020-0 Yes [id number] 15mg Take 1 U nivers 15 mg 1-30 tablet by ity of tablet 00:00: mouth [place] 00 daily. [facility] Branch meloxicam 2019-0 Yes [id number] 15mg Take 1 U nivers 15 mg 1-30 tablet by ity of tablet 00:00: mouth [place] 00 daily. [facility] Branch meloxicam 2019-0 Yes [id number] 15mg Take 1 U nivers 15 mg 1-30 tablet by ity of tablet 00:00: mouth [place] 00 daily. [facility] Branch meloxicam 2019-0 Yes [id number] 15mg Take 1 U nivers 15 mg 1-30 tablet by ity of tablet 00:00: mouth [place] 00 daily. [facility] meloxicam 2019-0 Yes [id number] 15mg Take 1 U nivers 15 mg 1-30 tablet by ity of tablet 00:00: mouth [place] 00 daily. [facility] Branch meloxicam 2019-0 Yes [id number] 15mg Take 1 U nivers 15 mg 1-30 tablet by ity of tablet 00:00: mouth [place] 00 daily. [facility] Branch meloxicam 2019-0 Yes [id number] 15mg Take 1 U nivers 15 mg 1-30 tablet by ity of tablet 00:00: mouth [place] 00 daily. [facility] meloxicam 2019-0 Yes [id number] 15mg Take 1 U nivers 15 mg 1-30 tablet by ity of tablet 00:00: mouth [place] 00 daily. [facility] Branch pregabalin 2019-0 2020- No [id number] 150mg Take 1 [facility] (LYRICA) 1-30 12-21 capsule by ity of 150 mg 00:00: 00:00 mouth 2 [place] capsule 00 :00 (two) Medical times Branch daily. hydroCHLORO 2019-0 2020- No [id number] 25mg Take 1 [facility] thiazide 25 1-30 07-09 tablet by it y of mg tablet 00:00: 00:00 mouth [place] 00 :00 daily. [facility] Branch hydroCHLORO 2019-0 2020- No [id number] 25mg Take 1 [facility] thiazide 25 1-30 07-09 tablet by it y of mg tablet 00:00: 00:00 mouth [place] 00 :00 daily. Medical Branch hydroCHLORO 2019-2019- No [id number] 25mg Take 1 [facility] thiazide 25 30 -09 tablet by it y of mg tablet 00:00: 00:00 mouth [place] 00 :00 daily. Medical Branch hydroCHLORO 2019- No [id number] 25mg Take 1 [facility] thiazide 25 09-29-09 tablet by it y of mg tablet 00:00: 00:00 mouth [place] 00 :00 daily. Medical [facility] metoprolol 2019- No [id number] 25mg Take 1 U nivers succinate 30 02-24 tablet by ity of XL 25 mg 24 00:00: 00:00 [place] tablet 00 :00 daily. [facility] metoprolol 2019- No [id number] 25mg Take 1 U nivers succinate 30 -24 tablet by ity of XL 25 mg 24 00:00: 00:00 [place] tablet 00 :00 daily. [facility] metoprolol 2019- No [id number] 25mg Take 1 U nivers succinate 30 -24 tablet by ity of XL 25 mg 24 00:00: 00:00 [place] hr tablet 00 :00 daily. [facility] aripiprazol 2018-08 Yes 5mg Take 5 mg U nivers e (ABILIFY 2-17 by mouth 2 ity of ORAL) 15:02: (two) [place] 33 times Medical daily. Branch aripiprazol 2018-08 Yes 5mg Take 5 mg U nivers e (ABILIFY 2-17 by mouth 2 ity of ORAL) 15:02: (two) [place] 33 times Medical daily. Branch aripiprazol 2018-08 Yes 5mg Take 5 mg U nivers e (ABILIFY 2-17 by mouth 2 ity of ORAL) 15:02: (two) [place] 33 times Medical daily. Branch aripiprazol 2018-08 Yes 5mg Take 5 mg U nivers e (ABILIFY 2-17 by mouth 2 ity of ORAL) 15:02: (two) [place] 33 times Medical daily. Branch VITAMIN B 2018-08 Yes Take by Unive rs COMPLEX 0-31 mouth. ity of ORAL 17:11: [place] 25 Medical Branch traZODONE 2018-08 Yes 100mg Take 100 [facility] vers 100 mg 0-31 mg by ity of tablet 17:11: mouth at [place] [address] bedtime. [facility] Branch VITAMIN B 2018-08 Yes Take by Unive rs COMPLEX 0-31 mouth. ity of ORAL 17:11: [address] Branch traZODONE 2018-08 Yes 100mg Take 100 [facility] vers 100 mg 0-31 mg by ity of tablet 17:11: mouth at [place] [address] bedtime. [facility] Branch VITAMIN B 2018-08 Yes Take by Unive rs COMPLEX 0-31 mouth. ity of ORAL 17:11: [address] traZODONE 2018-08 Yes 100mg Take 100 [facility] vers 100 mg 0-31 mg by ity of tablet 17:11: mouth at [place] [address] bedtime. [facility] Branch VITAMIN B 2018-08 Yes Take by Unive rs COMPLEX 0-31 mouth. ity of ORAL 17:11: [address] traZODONE 2018-08 Yes 100mg Take 100 [facility] vers 100 mg 0-31 mg by ity of tablet 17:11: mouth at [place] [address] bedtime. [facility] Branch traZODONE Yes 100mg Take 100 [facility] vers 100 mg 8-29 mg by ity of tablet 19:24: mouth at [place] [address] bedtime. [facility] Branch traZODONE Yes 100mg Take 100 [facility] vers 100 mg 8-29 mg by ity of tablet 19:24: mouth at [place] [address] bedtime. [facility] Branch traZODONE Yes 100mg Take 100 [facility] vers 100 mg 8-29 mg by ity of tablet 19:24: mouth at [place] [address] bedtime. [facility] Branch traZODONE Yes 100mg Take 100 [facility] vers 100 mg 8-29 mg by ity of tablet 19:24: mouth at [place] [address] bedtime. [facility] Branch traZODONE Yes 100mg Take 100 [facility] vers 100 mg 8-29 mg by ity of tablet 19:24: mouth at [place] [address] bedtime. [facility] Branch traZODONE Yes 100mg Take 100 [facility] vers 100 mg 8-29 mg by ity of tablet 19:24: mouth at [place] [address] bedtime. [facility] Branch benztropine Yes 1mg Take 1 mg U nivers 1 mg tablet 8-29 by mouth ity of 14:39: daily. [place] 21 Medical Branch ARIPiprazol Yes 10mg Take 10 mg Univers e 10 mg 8-29 by mouth 2 ity of tablet 14:39: (two) [place] 21 times Medical daily. Branch DULoxetine Yes Take 3 Unive rs 30 mg 8-29 capsules ity of capsule 14:39: by mouth [place] 21 daily. Medical Branch OLANZapine Yes 10mg Take 10 mg U nivers (ZYPREXA) 8-29 by mouth 2 ity of 10 mg 14:39: (two) [place] tablet 21 times Medical daily. Branch benztropine Yes 1mg Take 1 mg U nivers 1 mg tablet 8-29 by mouth ity of 14:39: daily. [place] [facility] Branch ARIPiprazol Yes 10mg Take 10 mg Univers e 10 mg 8-29 by mouth 2 ity of tablet 14:39: (two) [place] 21 times Medical daily. Branch DULoxetine Yes Take 3 Unive rs 30 mg 8-29 capsules ity of capsule 14:39: by mouth [place] 21 daily. Medical Branch OLANZapine Yes 10mg Take 10 mg U nivers (ZYPREXA) 8-29 by mouth 2 ity of 10 mg 14:39: (two) [place] tablet 21 times Medical daily. Branch benztropine Yes 1mg Take 1 mg U nivers 1 mg tablet 8-29 by mouth ity of 14:39: daily. [address] ARIPiprazol Yes 10mg Take 10 mg [facility] e 10 mg 8-29 by mouth 2 ity of tablet 14:39: (two) [place] 21 times Medical daily. Branch DULoxetine Yes Take 3 Unive rs 30 mg 8-29 capsules ity of capsule 14:39: by mouth [place] 21 daily. Medical Branch OLANZapine 0 Yes 10mg Take 10 mg U nivers (ZYPREXA) 8-29 by mouth 2 ity of 10 mg 14:39: (two) [place] tablet 21 times Medical daily. Branch benztropine 0 Yes 1mg Take 1 mg U nivers 1 mg tablet 8-29 by mouth ity of 14:39: daily. [address] ARIPiprazol Yes 10mg Take 10 mg [facility] e 10 mg 8-29 by mouth 2 ity of tablet 14:39: (two) [place] 21 times Medical daily. Branch DULoxetine Yes Take 3 Unive rs 30 mg 8-29 capsules ity of capsule 14:39: by mouth [place] 21 daily. Medical Branch OLANZapine 0 Yes 10mg Take 10 mg U nivers (ZYPREXA) 8-29 by mouth 2 ity of 10 mg 14:39: (two) [place] tablet 21 times Medical daily. Branch benztropine Yes 1mg Take 1 mg U nivers 1 mg tablet 8-29 by mouth ity of 14:39: daily. Medical Branch ARIPiprazol Yes 10mg Take 10 mg [facility] e 10 mg 8-29 by mouth 2 ity of tablet 14:39: (two) [place] 21 times Medical daily. Branch DULoxetine Yes Take 3 Unive rs 30 mg 8-29 capsules ity of capsule 14:39: by mouth [place] 21 daily. Medical Branch OLANZapine Yes 10mg Take 10 mg U nivers (ZYPREXA) 8-29 by mouth 2 ity of 10 mg 14:39: (two) [place] tablet 21 times Medical daily. Branch benztropine Yes 1mg Take 1 mg U nivers 1 mg tablet 8-29 by mouth ity of 14:39: daily. Medical Branch ARIPiprazol Yes 10mg Take 10 mg [facility] e 10 mg 8-29 by mouth 2 ity of tablet 14:39: (two) [place] 21 times Medical daily. Branch DULoxetine Yes Take 3 Unive rs 30 mg 8-29 capsules ity of capsule 14:39: by mouth [place] 21 daily. Medical Branch OLANZapine 0 Yes 10mg Take 10 mg U nivers (ZYPREXA) 8-29 by mouth 2 ity of 10 mg 14:39: (two) [place] tablet 21 times Medical daily. Branch benztropine 2018-0 Yes 1mg Take 1 mg U nivers 1 mg tablet 8-29 by mouth ity of 14:39: daily. Medical Branch ARIPiprazol 0 Yes 10mg Take 10 mg [facility] e 10 mg 8-29 by mouth 2 ity of tablet 14:39: (two) [place] 21 times Medical daily. Branch DULoxetine Yes Take 3 Unive rs 30 mg 8-29 capsules ity of capsule 14:39: by mouth [place] 21 daily. Medical Branch OLANZapine Yes 10mg Take 10 mg U nivers (ZYPREXA) 8-29 by mouth 2 ity of 10 mg 14:39: (two) [place] tablet 21 times Medical daily. Branch benztropine Yes 1mg Take 1 mg U nivers 1 mg tablet 8-29 by mouth ity of 14:39: daily. Medical Branch ARIPiprazol Yes 10mg Take 10 mg [facility] e 10 mg 8-29 by mouth 2 ity of tablet 14:39: (two) [place] 21 times Medical daily. Branch DULoxetine Yes Take 3 Unive rs 30 mg 8-29 capsules ity of capsule 14:39: by mouth [place] 21 daily. Medical Branch OLANZapine Yes 10mg Take 10 mg U nivers (ZYPREXA) 8-29 by mouth 2 ity of 10 mg 14:39: (two) [place] tablet 21 times Medical daily. Branch benztropine Yes 1mg Take 1 mg U nivers 1 mg tablet 8-29 by mouth ity of 14:39: daily. Medical Branch ARIPiprazol Yes 10mg Take 10 mg [facility] e 10 mg 8-29 by mouth 2 ity of tablet 14:39: (two) [place] 21 times Medical daily. Branch DULoxetine Yes Take 3 Unive rs 30 mg 8-29 capsules ity of capsule 14:39: by mouth [place] 21 daily. Medical Branch OLANZapine Yes 10mg Take 10 mg U nivers (ZYPREXA) 8-29 by mouth 2 ity of 10 mg 14:39: (two) [place] tablet 21 times Medical daily. Branch benztropine Yes 1mg Take 1 mg U nivers 1 mg tablet 8-29 by mouth ity of 14:39: daily. [place] [facility] Branch ARIPiprazol 0 Yes 10mg Take 10 mg Univers e 10 mg 8-29 by mouth 2 ity of tablet 14:39: (two) [place] 21 times Medical daily. Branch DULoxetine Yes Take 3 Unive rs 30 mg 8-29 capsules ity of capsule 14:39: by mouth [place] 21 daily. Medical Branch OLANZapine 2019-0 Yes 10mg Take 10 mg U nivers (ZYPREXA) 8-29 by mouth 2 ity of 10 mg 14:39: (two) [place] tablet 21 times Medical daily. Branch metoprolol Yes [id number] 25mg Take 1 Un nneka succinate 8-29 tablet by ity o f XL 25 mg 24 00:00: mouth [place] hr tablet 00 daily. Medical Branch hydroCHLORO Yes [id number] 25mg Take 1 [facility] thiazide 25 8-29 tablet by ity of mg tablet 00:00: mouth [place] 00 daily. Medical Branch meloxicam Yes [id number] 15mg Take 1 U nivers 15 mg 8-29 tablet by ity of tablet 00:00: mouth [place] 00 daily. Medical Branch metoprolol Yes [id number] 25mg Take 1 Un nneka succinate 8-29 tablet by ity o f XL 25 mg 24 00:00: mouth [place] hr tablet 00 daily. Medical Branch hydroCHLORO Yes [id number] 25mg Take 1 [facility] thiazide 25 8-29 tablet by ity of mg tablet 00:00: mouth [place] 00 daily. Medical Branch meloxicam Yes [id number] 15mg Take 1 U nivers 15 mg 8-29 tablet by ity of tablet 00:00: mouth [place] 00 daily. Medical Branch metoprolol Yes [id number] 25mg Take 1 Un nneka succinate 8-29 tablet by ity o f XL 25 mg 24 00:00: mouth [place] hr tablet 00 daily. Medical Branch hydroCHLORO Yes [id number] 25mg Take 1 [facility] thiazide 25 8-29 tablet by ity of mg tablet 00:00: mouth [place] 00 daily. Medical Branch meloxicam Yes [id number] 15mg Take 1 U nivers 15 mg 8-29 tablet by ity of tablet 00:00: mouth [place] 00 daily. Medical Branch metoprolol Yes [id number] 25mg Take 1 Un nneka succinate 8-29 tablet by ity o f XL 25 mg 24 00:00: mouth [place] hr tablet 00 daily. Medical Branch hydroCHLORO Yes [id number] 25mg Take 1 [facility] thiazide 25 8-29 tablet by ity of mg tablet 00:00: mouth [place] 00 daily. Medical Branch meloxicam Yes [id number] 15mg Take 1 U nivers 15 mg 8-29 tablet by ity of tablet 00:00: mouth [place] 00 daily. Medical Branch metoprolol Yes [id number] 25mg Take 1 Un nneka succinate 8-29 tablet by ity o f XL 25 mg 24 00:00: mouth [place] hr tablet 00 daily. Medical Branch hydroCHLORO Yes [id number] 25mg Take 1 [facility] thiazide 25 8-29 tablet by ity of mg tablet 00:00: mouth [place] 00 daily. Medical Branch meloxicam Yes [id number] 15mg Take 1 U nivers 15 mg 8-29 tablet by ity of tablet 00:00: mouth [place] 00 daily. Medical Branch metoprolol Yes [id number] 25mg Take 1 Un nneka succinate 8-29 tablet by ity o f XL 25 mg 24 00:00: mouth [place] hr tablet 00 daily. Medical Branch hydroCHLORO Yes [id number] 25mg Take 1 [facility] thiazide 25 8-29 tablet by ity of mg tablet 00:00: mouth [place] 00 daily. Medical Branch meloxicam Yes [id number] 15mg Take 1 U nivers 15 mg 8-29 tablet by ity of tablet 00:00: mouth [place] 00 daily. Medical Branch metoprolol Yes [id number] 25mg Take 1 Un nneka succinate 8-29 tablet by ity o f XL 25 mg 24 00:00: mouth [place] hr tablet 00 daily. Medical Branch hydroCHLORO Yes [id number] 25mg Take 1 [facility] thiazide 25 8-29 tablet by ity of mg tablet 00:00: mouth [place] 00 daily. Medical Branch meloxicam Yes [id number] 15mg Take 1 U nivers 15 mg 8-29 tablet by ity of tablet 00:00: mouth [place] 00 daily. Medical Branch metoprolol 2020- No [id number] 25mg Take 1 U nivers succinate 8-29 01-30 tablet by ity of XL 25 mg 24 00:00: 00:00 mouth [place] hr tablet 00 :00 daily. [facility] Branch hydroCHLORO 2018- 2020- No [id number] 25mg Take 1 [facility] thiazide 25 8-29 01-30 tablet by it y of mg tablet 00:00: 00:00 mouth [place] 00 :00 daily. Medical Branch meloxicam 2019- No [id number] 15mg Take 1 [facility] 15 mg 04-28 tablet by ity of tablet 00:00: 00:00 mouth [place] 00 :00 daily. [facility] Branch metoprolol 2020- No [id number] 25mg Take 1 U nivers succinate 04-28 tablet by ity of XL 25 mg 24 00:00: 00:00 mouth [place] hr tablet 00 :00 daily. [facility] Branch hydroCHLORO 2019- No [id number] 25mg Take 1 [facility] thiazide 25 04-28 tablet by it y of mg tablet 00:00: 00:00 mouth [place] 00 :00 daily. [facility] meloxicam 2019- No [id number] 15mg Take 1 [facility] 15 mg 04-28 tablet by ity of tablet 00:00: 00:00 mouth [place] 00 :00 daily. [facility] METOPROLOL 2019- No [id number] TAKE 1 U nivers SUCCINATE 7-06 07- TABLET BY ity of XL 25 mg 24 00:00: 00:00 MOUTH [place] hr tablet 00 :00 EVERY DAY [facility] [facility] METOPROLOL 2019- No [id number] TAKE 1 U nivers SUCCINATE 7-06 07-29 TABLET BY ity of XL 25 mg 24 00:00[place] 00[place] tablet 00 :00 EVERY DAY [facility] Branch hydroCHLORO 2018- No [id number] 25mg Take 1 Univers thiazide 25 -30 -29 tablet by it y of mg tablet 00:00: 00:00 mouth [place] 00 :00 daily. [facility] meloxicam 2018- No [id number] 7.5mg Take 1 Univers (MOBIC) 7.5 5-30 08-29 tablet by it y of mg tablet 00:00: 00:00 mouth [place] 00 :00 daily. [facility] Branch hydroCHLORO 2019- No [id number] 25mg Take 1 Univers thiazide 25 5-30 08-29 tablet by it y of mg tablet 00:00: 00:00 mouth [place] 00 :00 daily. [facility] meloxicam 2018- No [id number] 7.5mg Take 1 Univers (MOBIC) 7.5 5-30 08-29 tablet by it y of mg tablet 00:00: 00:00 mouth [place] 00 :00 daily. Medical Branch DULOXETINE 2019-0 Yes 60mg Take 60 mg U nivers HCL 4-23 by mouth 3 ity of (CYMBALTA 20:00: (three) [place] ORAL) 25 times Medical daily. Branch OLANZapine 2019-0 Yes 20mg Take 20 mg U nivers 20 mg 4-23 by mouth ity of tablet 20:00: at [place] 25 bedtime. Medical Branch aripiprazol 2019-0 Yes 5mg Take 5 mg U nivers e (ABILIFY 4-23 by mouth 2 ity of ORAL) 20:00: (two) [place] 25 times Medical daily. Branch DULOXETINE 2019-0 Yes 60mg Take 60 mg U nivers HCL 4-23 by mouth 3 ity of (CYMBALTA 20:00: (three) [place] ORAL) 25 times Medical daily. Branch OLANZapine 2019-0 Yes 20mg Take 20 mg U nivers 20 mg 4-23 by mouth ity of tablet 20:00: at [place] 25 bedtime. Medical Branch DULOXETINE 2019-0 Yes 60mg Take 60 mg U nivers HCL 4-23 by mouth 3 ity of (CYMBALTA 20:00: (three) [place] ORAL) 25 times Medical daily. Branch OLANZapine 2019-0 Yes 20mg Take 20 mg U nivers 20 mg 4-23 by mouth ity of tablet 20:00: at [place] 25 bedtime. Medical Branch DULOXETINE 2019-0 Yes 60mg Take 60 mg U nivers HCL 4-23 by mouth 3 ity of (CYMBALTA 20:00: (three) [place] ORAL) 25 times Medical daily. Branch OLANZapine 2019-0 Yes 20mg Take 20 mg U nivers 20 mg 4-23 by mouth ity of tablet 20:00: at [place] 25 bedtime. Medical Branch DULOXETINE 2019-0 Yes 60mg Take 60 mg U nivers HCL 4-23 by mouth 3 ity of (CYMBALTA 20:00: (three) [place] ORAL) 25 times Medical daily. Branch OLANZapine 2019-0 Yes 20mg Take 20 mg U nivers 20 mg 4-23 by mouth ity of tablet 20:00: at [place] 25 bedtime. Medical Branch DULOXETINE 2019-0 Yes 60mg Take 60 mg U nivers HCL 4-23 by mouth 3 ity of (CYMBALTA 20:00: (three) [place] ORAL) 25 times Medical daily. Branch OLANZapine 2019-0 Yes 20mg Take 20 mg U nivers 20 mg 4-23 by mouth ity of tablet 20:00: at [place] 25 bedtime. Medical Branch aripiprazol 2019-0 Yes 5mg Take 5 mg U nivers e (ABILIFY 4-23 by mouth 2 ity of ORAL) 20:00: (two) [place] 25 times Medical daily. Branch DULOXETINE 2019-0 Yes 60mg Take 60 mg U nivers HCL 4-23 by mouth 3 ity of (CYMBALTA 20:00: (three) [place] ORAL) 25 times Medical daily. Branch OLANZapine 2019-0 Yes 20mg Take 20 mg U nivers 20 mg 4-23 by mouth ity of tablet 20:00: at [place] 25 bedtime. Medical Branch aripiprazol 2019-0 Yes 5mg Take 5 mg U nivers e (ABILIFY 4-23 by mouth 2 ity of ORAL) 20:00: (two) [place] 25 times Medical daily. Branch DULOXETINE 2019-0 Yes 60mg Take 60 mg U nivers HCL 4-23 by mouth 3 ity of (CYMBALTA 20:00: (three) [place] ORAL) 25 times Medical daily. Branch OLANZapine 2019-0 Yes 20mg Take 20 mg U nivers 20 mg 4-23 by mouth ity of tablet 20:00: at [place] 25 bedtime. Medical Branch aripiprazol 2019-0 Yes 5mg Take 5 mg U nivers e (ABILIFY 4-23 by mouth 2 ity of ORAL) 20:00: (two) [place] 25 times Medical daily. Branch DULOXETINE 2019-0 Yes 60mg Take 60 mg U nivers HCL 4-23 by mouth 3 ity of (CYMBALTA 20:00: (three) [place] ORAL) 25 times Medical daily. Branch OLANZapine 2019-0 Yes 20mg Take 20 mg U nivers 20 mg 4-23 by mouth ity of tablet 20:00: at [place] 25 bedtime. Medical Branch aripiprazol 2019-0 Yes 5mg Take 5 mg U nivers e (ABILIFY 4-23 by mouth 2 ity of ORAL) 20:00: (two) [place] 25 times Medical daily. Branch DULOXETINE 2019-0 Yes 60mg Take 60 mg U nivers HCL 4-23 by mouth 3 ity of (CYMBALTA 20:00: (three) [place] ORAL) 25 times Medical daily. Branch OLANZapine Yes 20mg Take 20 mg U nivers 20 mg 4-23 by mouth ity of tablet 20:00: at [place] 25 bedtime. Medical Branch aripiprazol Yes 5mg Take 5 mg U nivers e (ABILIFY 4-23 by mouth 2 ity of ORAL) 20:00: (two) [place] 25 times Medical daily. Branch VITAMIN B Yes Take by Unive rs COMPLEX 3-28 mouth. ity of ORAL 16:11: [address] VITAMIN B Yes Take by [place] rs COMPLEX 3-28 mouth. ity of ORAL 16:11: [address] VITAMIN B Yes Take by Unive rs COMPLEX 3-28 mouth. ity of ORAL 16:11: [address] VITAMIN B Yes Take by [place] rs COMPLEX 3-28 mouth. ity of ORAL 16:11: [address] VITAMIN B Yes Take by Unive rs COMPLEX 3-28 mouth. ity of ORAL 16:11: [address] VITAMIN B Yes Take by Unive rs COMPLEX 3-28 mouth. ity of ORAL 16:11: [address] cyclobenzap Yes [id number] Bid prn Univers rine 10 mg 8-02 ity of tablet 00:00: [address] cyclobenzap 0 Yes [id number] Bid prn Univers rine 10 mg 8-02 ity of tablet 00:00: [address] cyclobenzap Yes [id number] Bid prn Univers rine 10 mg 8-02 ity of tablet 00:00: [address] cyclobenzap Yes [id number] Bid prn Univers rine 10 mg 8-02 ity of tablet 00:00: [address] cyclobenzap Yes [id number] Bid prn Univers rine 10 mg 8-02 ity of tablet 00:00: [address] cyclobenzap Yes [id number] Bid prn Univers rine 10 mg 8-02 ity of tablet 00:00: [address] cyclobenzap 2018-0 Yes [id number] Bid prn Univers rine 10 mg 8-02 ity of tablet 00:00: [place] 00 Medical Branch cyclobenzap 2018-0 Yes [id number] Bid prn Univers rine 10 mg 8-02 ity of tablet 00:00: [place] 00 Medical Branch cyclobenzap 2018-0 Yes [id number] Bid prn Univers rine 10 mg 8-02 ity of tablet 00:00: [place] 00 Medical Branch cyclobenzap 2018-0 Yes [id number] Bid prn Univers rine 10 mg 8-02 ity of tablet 00:00: [place] 00 Medical Branch cyclobenzap 2018-0 2020- No [id number] Bid prn Univers rine 10 mg 8-02 02-24 ity of tablet 00:00: 00:00 [place] 00 :00 Medical Branch cyclobenzap 2018-0 2020- No [id number] Bid prn Univers rine 10 mg 8-02 02-24 ity of tablet 00:00: 00:00 [place] 00 :00 Medical Branch cyclobenzap 2018-0 2020- No [id number] Bid prn Univers rine 10 mg 8- 02-24 ity of tablet 00:00: 00:00 [place] 00 :00 Medical Branch Vital Signs Vital Name Observation Time Observation Value Comments Source Systolic blood 2020-09-07 15:09:00 126 mm[Hg] Univer sity of pressure [facility] [place] [facility] Diastolic blood 2020-09-07 15:09:00 88 mm[Hg] Unive rsity of pressure [facility] [place] [facility] Heart rate 2020-09-07 15:09:00 76 /min Universi ty [facility] Body height 2020-09-07 15:09:00 160 cm Universi ty [facility] Body weight 2020-09-07 15:09:00 114.306 kg Universi ty [facility] BMI 2020-09-07 15:09:00 44.64 kg/m2 Universi ty [facility] Systolic blood 2020-09-07 15:09:00 126 mm[Hg] Univer sity of pressure [facility] [place] [facility] Diastolic blood 2020-09-07 15:09:00 88 mm[Hg] Unive rsity of pressure [facility] [place] [facility] Heart rate 2020-09-07 15:09:00 76 /min Universi ty [facility] Body height 2020-09-07 15:09:00 160 cm [facility]i ty [facility] [place] [facility] Body weight 2020-09-07 15:09:00 114.306 kg [facility]i ty [facility] [place] [facility] BMI 2020-09-07 15:09:00 44.64 kg/m2 [facility] ty [facility] [place] [facility] Respiratory rate 2020-08-02 16:44:00 20 /min Univ ersity of [place] [facility] Body height 2020-08-02 16:44:00 160 cm [facility]i ty [facility] [place] [facility] Body weight 2020-08-02 16:44:00 114.352 kg [facility] [place] [facility] BMI 2020-08-02 16:44:00 44.66 kg/m2 [facility] [place] [facility] Systolic blood 2020-08-02 16:44:00 113 mm[Hg] Univer sity of pressure [place] [facility] Diastolic blood 2020-08-02 16:44:00 66 mm[Hg] Unive rsity of pressure [place] [facility] Heart rate 2020-08-02 16:44:00 76 /min Universi ty [facility] [place] [facility] Body temperature 2020-08-02 16:44:00 36 Mera Univ ersity of [place] [facility] Systolic blood 2020-05-17 16:06:00 125 mm[Hg] Univer sity of pressure [place] [facility] Diastolic blood 2020-05-17 16:06:00 76 mm[Hg] Unive rsity of pressure [place] [facility] Heart rate 2020-05-17 16:06:00 93 /min Universi ty [facility] [place] [facility] Body temperature 2020-05-17 16:06:00 36.44 Mera Univ ersity of [place] [facility] Respiratory rate 2020-05-17 16:06:00 18 /min Univ ersity of [place] [facility] Body height 2020-05-17 16:06:00 160 cm Universi ty [facility] [place] [facility] Body weight 2020-05-17 16:06:00 105.688 kg [facility]i ty [facility] [place] [facility] BMI 2020-05-17 16:06:00 41.27 kg/m2 [facility] [place] [facility] Systolic blood 2020-03-08 15:04:00 108 mm[Hg] Univer sity of pressure [place] [facility] Diastolic blood 2020-03-08 15:04:00 69 mm[Hg] Unive rsity of pressure [place] [facility] Heart rate 2020-03-08 15:04:00 74 /min Universi ty [facility] [place] [facility] Body temperature 2020-03-08 15:04:00 36.61 Mera Univ ersity of [place] [facility] Respiratory rate 2020-03-08 15:04:00 20 /min Univ ersity of [place] [facility] Body height 2020-03-08 15:04:00 160 cm [facility]i ty [facility] [place] [facility] Body weight 2020-03-08 15:04:00 112.583 kg [facility]i ty [facility] [place] [facility] BMI 2020-03-08 15:04:00 43.97 kg/m2 [facility] [place] [facility] Systolic blood 2019-10-25 14:56:00 128 mm[Hg] Univer sity of pressure [place] [facility] Diastolic blood 2019-10-25 14:56:00 92 mm[Hg] Unive rsity of pressure [place] [facility] Heart rate 2019-10-25 14:56:00 72 /min [facility]i ty [facility] [place] [facility] Body temperature 2019-10-25 14:56:00 36.67 Mera Univ ersity of [place] [facility] Body height 2019-10-25 14:56:00 160 cm [facility] [place] [facility] Body weight 2019-10-25 14:56:00 110.904 kg [facility]i [facility] [place] [facility] BMI 2019-10-25 14:56:00 43.31 kg/m2 [facility] [place] [facility] Oxygen saturation in 2019-10-25 14:56:00 99 /min University of Arterial blood by [facility] Pulse oximetry Branch Respiratory rate 2019-10-24 17:13:00 19 /min Univ ersity of [place] [facility] Body height 2019-10-24 17:13:00 160 cm [facility]i ty [facility] [place] [facility] Body weight 2019-10-24 17:13:00 110.133 kg [facility]i [facility] [place] [facility] BMI 2019-10-24 17:13:00 43.01 kg/m2 [facility] [place] [facility] Oxygen saturation in 2019-10-24 17:13:00 99 /min University of Arterial blood by [facility] nereida Pulse oximetry Branch Systolic blood 2019-10-24 17:13:00 120 mm[Hg] Univer sity of pressure [place] [facility] Diastolic blood 2019-10-24 17:13:00 81 mm[Hg] Unive rsity of pressure [place] [facility] Heart rate 2019-10-24 17:13:00 75 /min Universi ty [facility] [place] [facility] Systolic blood 2019-09-29 16:38:00 93 mm[Hg] Univer sity of pressure [place] [facility] Diastolic blood 2019-09-29 16:38:00 64 mm[Hg] Unive rsity of pressure [place] [facility] Heart rate 2019-09-29 16:38:00 77 /min [facility]i ty [facility] [place] [facility] Body temperature 2019-09-29 16:38:00 36.5 Mera Univ ersity of [place] [facility] Respiratory rate 2019-09-29 16:38:00 20 /min Univ ersity of [place] [facility] Body height 2019-09-29 16:38:00 160 cm [facility] [place] [facility] Body weight 2019-09-29 16:38:00 109.77 kg [facility]i [facility] [place] [facility] BMI 2019-09-29 16:38:00 42.87 kg/m2 [facility] [place] [facility] Systolic blood 2019-04-28 14:39:00 105 mm[Hg] Univer sity of pressure [place] [facility] Diastolic blood 2019-04-28 14:39:00 62 mm[Hg] Unive rsity of pressure [place] [facility] Heart rate 2019-04-28 14:39:00 87 /min [facility]i [facility] [place] [facility] Body temperature 2019-04-28 14:39:00 36.94 Mera Univ ersity of [place] [facility] Respiratory rate 2019-04-28 14:39:00 18 /min Univ ersity of [place] [facility] Body height 2019-04-28 14:39:00 160 cm [facility] [place] [facility] Body weight 2019-04-28 14:39:00 123.832 kg [facility] [place] [facility] BMI 2019-04-28 14:39:00 48.36 kg/m2 [facility] [place] [facility] Procedures Procedure Date / Time Performing Clinician Source Performed REFERRAL- 2020-09-27 06:01:00 Doctor Kristaligned, [facility] REQUEST/RESPONSE [place] [facility] MR KNEE LEFT WO CONTRAST 2020-08-20 18:12:04 Kalani Delgado [facility] NOTICE OF PRIVACY 2020-08-02 06:01:00 Doctor Kristaligned, [facility] PRACTICES [place] [facility] AGREEMENTS AUTHORIZATIONS 2020-08-02 06:01:00 Doctor Unassigned, [facility] AND IRREVOCABLE [place] [facility] ASSIGNMENTS (FORM 2001) VACCINATIONS - CONSENTS, 2020-05-17 05:01:00 Doctor Lucina, [facility] ELIGIBILITY, HISTORY [place] [facility] XR KNEE 3 VW LEFT 2020-03-16 13:13:36 Kalani Delgado [facility] Medical [place] SCANNED LAB RESULTS 2020-03-08 05:01:00 [facility]say[facility] [place] [facility] ASSIGNMENT OF BENEFITS 2020-02-10 13:57:41 [facility], [facility] [place] [facility] BCPC - PRESCRIPTION / 2019-09-08 06:01:00 Doctor Unasslindsay, Uni [facility] ORDER [place] [facility] AGREEMENTS AUTHORIZATIONS 2019-04-28 05:01:00 Doctor Lucina, [facility] AND IRREVOCABLE [place] [facility] ASSIGNMENTS (FORM 2001) Encounters Start End Encounter Admission Attending Care Care Encounter Source Date/Time Date/Time Type Type Clinicians Facility Department ID 2022-05-24 2022-05-24 emergency [id number] 15:15:00 18:38:00 [id number] 2022-03-15 2022-03-15 Outpatient DAR_CONSTANTIN PEDERSEN [facility] [id number] [place] 10:56:00 10:56:00 FLO 0716 [facility] Health Outre h Program 2020-11-29 2020-11-29 Outpatient Gracia GRAFF [facility] [id number] Univers 15:30:00 15:30:00 BEVERLEY magaña [facility] [place] [facility] 2020-10-23 2020-10-23 Telephone Kalani Delgado 1.2.840.114 [id number] 00:00:00 00:00:00 [facility] [id number] HEALTH 4.2.7.2.686 UNIT [id number] 2020-10-23 2020-10-23 Telephone Kalani Delgado 1.2.840.114 [id number] [facility] 00:00:00 00:00:00 [facility] [id number] it y of [place] [id number] [facility] [address] [place] 2020-10-12 2020-10-12 Outpatient R TASH [facility] [id number] [facility] 09:00:00 09:00:00 SHEY ity of [facility] [place] [facility] 2020-09-27 2020-09-27 Orders Doctor CONNER 1.2.840.114 [id number] 00:00:00 00:00:00 Only Unassigned, [place] 350.1.13.10 [place] [facility] 4.2.7.2.686 [id number] 2020-09-27 2020-09-27 Orders Doctor CONNER 1.2.840.114 [id number] Univers 00:00:00 00:00:00 Only Unassigned, [place] 350.1.13.10 ity of [place] [facility] 4.2.7.2.686 Marvel as [id number] [address] 2020-09-20 2020-09-20 Telephone [facility] 1.2.840.114 [id number] 00:00:00 00:00:00 Shey Lopez [facility] [id number] Surgical 4.2.7.2.686 Specialti [id number] [address] 2020-09-20 2020-09-20 Telephone Tash [facility] 1.2.840.114 [id number] Univers 00:00:00 00:00:00 Shey Lopez Health 350.1.13.10 it y of Surgical 4.2.7.2.686 [place] as Specialti [id number] [place] [address] 2020-09-07 2020-09-07 Office [facility] [id number] 09:03:53 09:52:26 Visit Shey Lopez Health 350.1.13.10 Surgical 4.2.7.2.686 Specialti [id number] [address] 2020-09-07 2020-09-07 Office [facility] [id number] [facility] 09:03:53 09:52:26 Visit Shey Lopez [facility] 350.1.13.10 it y of Surgical 4.2.7.2.686 [place] as Specialti [id number] [place]ical [place] [address] [place] 2020-09-07 2020-09-07 Outpatient R TASH [facility] [id number] Univers 09:00:00 09:00:00 [facility] 2020-08-30 2020-08-30 [facility] [id number] Univers 08:30:00 08:30:00 [facility] 2020-08-20 2020-08-20 [facility] 1.2.840.114 [id number] Univers 10:11:58 23:59:00 Encounter Health 350.1.13.10 ity [place] [id number] [facility] 804 Branch ([facility]) 2020-08-20 2020-08-20 Outpatient [facility] [id number] Univers 10:11:58 23:59:00 ity [facility] 2020-08-16 2020-08-16 Jo Ann [facility] 1.2.840.114 [id number] Univers 00:00:00 00:00:00 [facility] 350.1.13.10 it y of [place] 4.2.7.2.686 Marvel as Professio [id number] [place]ical [place]al 044 Branch Office [facility] 2020-08-02 2020-08-02 Office Care, Ang Primary [place] 1.2.840 .114 [id number] Univers 10:40:31 12:20:58 Visit [facility] 350.1.13.10 ity of [place] [id number] [facility] 362 Branch 2020-08-02 2020-08-02 Outpatient R SANDY [facility] [id number] Univers 10:30:00 10:30:00 ity [facility] 2020-08-02 2020-08-02 Orders Doctor PRIETO 1.2.840.114 [id number] Univers 00:00:00 00:00:00 Only Unassigned, [place] 350.1.13.10 ity of [place] [facility] 4.2.7.2.686 Marvel as [id number] [address] 2020-05-31 2020-05-31 [facility] [id number] Univers 08:50:00 08:50:00 ILIANA ity [facility] 2020-05-24 2020-05-24 Outpatient R [facility] [id number] Univers 00:00:00 00:00:00 ity [facility] 2020-05-22 2020-05-22 [facility] [id number] Univers 09:50:00 09:50:00 ILIANA [facility] 2020-05-17 2020-05-21 Office Care, Ang Primary [place] 1.2.840 .114 [id number] Univers 11:05:31 09:49:52 Visit Sandy Kalani [facility] 350.1.13.10 ity of [place] [id number] [address] 2020-05-21 2020-05-21 Outpatient Gracia SANDY KALANI [facility] [id number] Univers 00:00:00 00:00:00 ity of [facility] [place] [facility] 2020-05-17 2020-05-17 Outpatient Gracia [facility] [id number] Univers 10:30:00 10:30:00 ity [facility] 2020-05-17 2020-05-17 Orders Doctor PRIETO 1.2.840.114 [id number] Univers 00:00:00 00:00:00 Only Unassigned, [place] 350.1.13.10 ity of [facility] 4.2.7.2.686 Marvel as [id number] [address] 2020-05-08 2020-05-08 [facility] [id number] Univers 08:30:00 08:30:00 BEVERLEY klein f [facility] [place] [facility] 2020-05-08 2020-05-08 [facility] 1.2.840.114 [id number] Univers 07:05:41 07:35:41 ne Visit Beverley AVILES 350.1.13.10 ity of C[place] 4.2.[place].2.[place] C[place] AT [id number] [place] suman BYRD 072 [facility] 2020-05-01 2020-05-01 Outpatient R BLAINE [facility] [id number] Univers 09:30:00 09:30:00 BEVERLEY arshad o f [facility] [place] [facility] 2020-04-24 2020-04-24 Outpatient R BLAINE [facility] [id number] Univers 09:30:00 09:30:00 BEVERLEY klein f [facility] [place] [facility] 2020-03-08 2020-03-20 Office Care, Ang Primary ROSY 1.2.840 .114 [id number] Univers 10:02:59 09:15:53 Visit Kalani Delgado [facility] 350.1.13.10 ity of [place].2.[place] [id number] [address] 2020-03-16 2020-03-16 Hospital Kalani Delgado [facility] 1.2.840.114 [id number] Univers 07:51:00 23:59:00 Encounter [place] 350.1.13.10 ity of [place] 4.2.7.2.686 [facility] [place] [id number] [facility] 807 Branch 2020-03-16 2020-03-16 Outpatient R KALANI DELGADO [facility] [id number] Univers 00:00:00 00:00:00 ity of [facility] [place] [facility] 2020-03-13 2020-03-13 Telephone Kalani Delgado 1.2.840.114 [id number] Univers 00:00:00 00:00:00 [facility] 350.1.13.10 it y of [place].2.[place] PRIMARY [id number] [facility] 2020-03-08 2020-03-08 Outpatient R KALANI DELGADO [facility] [id number] Univers 10:00:00 10:00:00 ity of [facility] [place] [facility] 2020-03-08 2020-03-08 Orders Doctor PRIETO 1.2.840.114 [id number] Univers 00:00:00 00:00:00 Only Unassigned, [place] 350.1.13.10 ity of [place] [facility] 4.2.7.2.686 Marvel [id number] [facility] [address] [place] 2020-02-29 2020-02-29 Telephone Kalani Delgado 1.2.840.114 [id number] Univers 00:00:00 00:00:00 [facility] 350.1.13.10 it y of [place] [id number] [facility] [address] [place] 2020-02-14 2020-02-14 Telephone [facility] [id number] [id number] Univers 00:00:00 00:00:00 [facility] 350.1.13.10 ity of [place].2.[place] Profess[place] [id number] [place] dical nal 9 [facility] 2020-02-10 2020-02-10 Outpatient R [facility] [id number] Univers 09:00:00 09:00:00 ity of [facility] [place] [facility] 2020-02-10 2020-02-10 Orders Doctor PRIETO 1.2.840.114 [id number] Univers 00:00:00 00:00:00 Only Unassigned, [place] 350.1.13.10 ity of [place] [facility] 4.2.7.2.686 Marvel as [id number] [address] 2020-01-24 2020-01-24 [facility] [id number] Univers 10:40:00 10:40:00 TIANYOUNG michelety o f [facility] [place] [facility] 2020-01-24 2020-01-24 Telemedici [facility] 1.2.840.114 [id number] Univers 07:57:10 08:17:10 [facility] 350.1.13.10 ity [place].2.[place] Profess[place] [phone] [place] dical [place]al [address] [place] [address] 2020-01-18 2020-01-18 Outpatient R [facility] [id number] Univers 13:00:00 13:00:00 ity of [facility] 2019-11-10 2019-11-10 Telephone Kalani Delgado 1.2.840.114 [id number] Univers 00:00:00 00:00:00 [facility] 350.1.13.10 it y of [place]2.[place] [id number] [address] 2019-11-03 2019-11-03 Outpatient R KALANI DELGADO [facility] [id number] Univers 08:15:00 08:15:00 ity of [facility] 2019-10-25 2019-10-25 Office [facility] 1.2.840.114 [id number] Univers 08:48:06 09:27:18 Visit Beverley [place]IL[place] 350.1.13.10 ity of C[place] 4.2.7.2.[place] AT [id number] [place] dical [place] 072 [facility] 2019-10-25 2019-10-25 [facility] [id number] Univers 09:00:00 09:00:00 BEVERLEY ity o f [facility] [place] [facility] 2019-10-24 2019-10-24 Office [facility] 1.2.840.114 [id number] Univers 10:57:17 15:44:20 Visit Dannie Gaspar 350.1.13.10 ity [facility] 4.2.7.2.[place] Profess[place] [id number] [place]ical [place]al 059 [facility] 2019-10-24 2019-10-24 Outpatient R AYAN [facility] [id number] Univers 11:00:00 11:00:00 TIANYOUNG michelety o f [facility] [place] [facility] 2019-09-29 2019-09-29 Office Care, Aries GALLEGOS 1.2.840 .114 [id number] Univers 10:38:08 11:16:42 Visit Kalani Delgado [facility] 350.1.13.10 ity of [place] [id number] [address] 2019-09-29 2019-09-29 Outpatient R SAMEER DELGADOCY [facility] [id number] Univers 10:00:00 11:16:42 ity of [facility] [place] [facility] 2019-09-14 2019-09-14 Telephone Kalani Delgado ROSY [id number] Univers 00:00:00 00:00:00 [facility] [id number] it [id number] [phone] [address] 2019-09-08 2019-09-08 Orders Doctor CONNER [id number] Univers 00:00:00 00:00:00 Only Unassigned, [place] [id number] ity of [place] [facility] [id number] Marvel as [id number] [address] 2019-05-05 2019-05-05 Telephone Kalani Delgado [id number] Univers 00:00:00 00:00:00 [facility] [id number] [id number] [phone] [address] 2019-04-28 2019-04-28 Office Care, [facility] Bob ROSY 1.2.840 .[id number] Univers 09:26:40 11:38:19 Visit Kalani Delgado [facility] [id number] [id number] [phone] [address] 2019-04-28 2019-04-28 Orders Doctor CONNER [id number] Univers 00:00:00 00:00:00 Only Unassigned, [place] [id number] ity of [place] [facility] [id number] [place] [phone] [address] Results Test Description Test Time Test Comments Results Result Comments Source VITAMIN D, 25 [place] 2021-09-10 03:25:23 Test Item Value Reference Range Interpretation Comme nts VITAMIN D, 25 OH (test code 27 NG/ML SEE BELOW L NOTE: 25-HYDROXYVITAMIN D ASSAY = 4958) INCLUDES 25-HYD ROXYVITAMIN D2 AND D3. METHODOLOGY IS CHEMILUMINESCENT IMMUNOASSAY. INTERPRETIVE RANGES PED IATRIC (<17 YEARS) . . . . . . . . . . . NG/ML 20-100ADULT: INSUFFICIENT . . . . . . . . . . . . . . NG/ML <20 S UBOPTIMAL . . . . . . . . . . . . . . . NG/ML 20-29 OPTIMAL . . . . . . . . . . . . . . . . . NG/ML 30-100 UN LESS OTHERWISE INDICATED, ALL TESTING PERFORMED ATCLINICAL PATH [email or web address] [address] [place] [address] LABORATORY DIRE CTOR: [place] AGUIRRE M.D. CLIA NUMBER [id number] [place]. [id number] HIV 1/2 4TH GEN, RFLX [id number] 03:00:39 Test Item Value Reference Range Interpretation Comments HIV 1/2 4TH GEN, RFLX CONF (test NON-REACTIVE NON-REACTIVE code = 3514) TSH, THIRD [id number] 00:19:50 Test Item Value Reference Range Interpretation Comments TSH, THIRD GENERATION (test code 1.090 UIU/ML 0.400-4.100 = 2821) LIPID [id number] 23:59:41 Test Item Value Reference Range Interpretation Comments CHOLESTEROL (test 124 MG/DL <200 code = 2210) TRIGLYCERIDES (test 69 MG/DL <150 code = 2232) HDL CHOLESTEROL (test 39 MG/DL >39 L code = 2220) CALC LDL CHOL (test 70 MG/DL <100 NOTE: C ALCULATED LDL code = 2237) IS BASED ON TASHA-LORA METHOD WHICHINCLUDES ADJUSTABLE TRIGLYCERIDE:VL DL CHOLESTEROL RAT IO.THIS FACTOR VARIES B Y MEASURED TRIGLY CERIDE AND NON-HDLCHOL ESTEROL CONCENTRATIONS WITH INCREASED CALCU LATED LDL SEENIN HIGH ER TRIGLYCERIDE OR LOWER NON-HDL SPECIME NS. FOR MOREINFORMATION , SEE CLIENT ANNOUNCE MENT AT [email or web address] LDL/HDL 1.79 RATIO <3.22 (test code = 2238) COMPREHENSIVE METABOLIC [id number] 23:59:41 Test Item Value Reference Range Interpretation Comments GLUCOSE (test code = 77 MG/DL 70-99 2216) BUN (test code = 8 MG/DL 6-20 2207) CREATININE (test 0.67 MG/DL 0.60-1.30 EFFECTIVE code = 2214) 08/12/2021, [facility] HAS IMPLEMENTED THE NKF-ASN RECOMME NDED KD-EPI EGF R REFIT CALCULATI ON THAT DOES NOT INCLUDE A COEFFICIENT FOR RACE. FOR MORE INFORMATION, SE E ANNOUNCEMENT [email or web address] eGFR (2020 CKD-EPI) 122 >60 (test code = 31563) ML/MIN/1.73 CALC BUN/CREAT (test 12 RATIO 6-28 code = 223) SODIUM (test code = 141 MEQ/L 194-596 6162) POTASSIUM (test code 4.0 MEQ/L 3.5-5.4 = 2227) CHLORIDE (test code 102 MEQ/L 95-107 = 2214) CARBON DIOXIDE (test 22 MEQ/L 19-31 code = 220) CALCIUM (test code = 9.3 MG/DL 8.5-10.5 2208) PROTEIN, TOTAL (test 7.6 G/DL 6.1-8.3 code = 2228) ALBUMIN (test code = 4.2 G/DL 3.5-5.2 2200) CALC GLOBULIN (test 3.4 G/DL 1.9-3.7 code = 2239) CALC A/G RATIO (test 1.2 RATIO 1.0-2.6 code = 2233) BILIRUBIN, TOTAL 0.3 MG/DL See_Comment [Automated message] (test code = 220) The syste m which generated this result transmit inge reference range : <=1.2. The refe rence range was not u sed to interpret th is result as normal/abnormal . ALKALINE PHOSPHATASE 56 U/L 40-112 (test code = 2203) AST (test code = 63 U/L 9-40 H 2217) ALT (test code = 92 U/L 5-40 H 2218) HEMOGLOBIN [id number] 03:14:31 Test Item Value Reference Range Interpretation Comments HEMOGLOBIN A1c (test code = 93751) 6.0 % 4.2-5.6 H CBC W/AUTO DIFF WITH [id number] 03:06:02 Test Item Value Reference Range Interpretation Comments WBC (test code = 2.7 K/UL 3.5-11.0 L 1001) RBC (test code = 4.34 M/UL 3.80-5.40 1002) HEMOGLOBIN (test code 9.8 G/DL 11.5-15.5 L = 1003) HEMATOCRIT (test code 30.9 % 34.0-45.0 L = 1004) MCV (test code = 71.2 fL 80.0-99.0 L 1005) MCH (test code = 22.6 PG 25.0-33.0 L 1006) MCHC (test code = 31.7 G/DL 31.0-36.0 1007) RDW (test code = 15.6 % 11.5-15.0 H 1038) NEUTROPHILS (test 46.4 % code = 1008) LYMPHOCYTES (test 46.3 % code = 1010) MONOCYTES (test code 5.5 % = 1011) EOSINOPHILS (test 0.7 % code = 1012) BASOPHILS (test code 0.7 % = 1013) IMMATURE GRANYLOCYTES 0.4 % (test code = 1036) NUCLEATED RBCS (test 0.0 /100 WBC'S See_Comment [Aut omated code = 1065) message] The sy stem which generated this result transmitted reference range : 0.0. The refere nce range was not u sed to interpret th is result as normal/abnormal . PLATELET COUNT (test 281 K/UL 130-400 code = 1015) ABSOLUTE NEUTROPHILS 1.26 K/UL 1.50-7.50 L (test code = 1066) ABSOLUTE LYMPHOCYTES 1.26 K/UL 1.00-4.00 (test code = 1067) ABSOLUTE MONOCYTES 0.15 K/UL 0.20-1.00 L (test code = 1068) ABSOLUTE EOSINOPHILS 0.02 K/UL 0.00-0.50 (test code = 1040) ABSOLUTE BASOPHILS 0.02 K/UL 0.00-0.20 (test code = 1069) ABS IMMATURE 0.01 K/UL 0.00-0.10 GRANULOCYTES (test code = 1020) ABS NUCLEATED RBCS 0.00 K/UL 0.00-0.11 (test code = 68816) MR KNEE LEFT WO [id number] 21:23:01 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 Mild contusion over the medial aspect of the patella which may representsequela from a prior lateral patellofemoral dislocation and relocation. Preliminary Report Dictated by Resident: Jolie Rao I, Alex Birmingham MD., have reviewed this study and agree with the abovereport.EXAM: MR KNEE LEFT WO CONTRAST HISTORY: 25 years-old Female intermittent chronic knee pain. Patient have arecent episode with sharp pain after a leg press. COMPARISON: Plain radiograph from 03/16/2020, knee MR 10/22/2017. TECHNIQUE AND FINDINGS: 1.5 Josselin ?multiplanar multi weighted MR imaging of theleft knee wasperformed without contrast. BONE AND JOINT:The patellofemoral compartment: Lateral patellar subluxation is present.Grade 1 chondral loss of the lateral patellar and femoral articularsurfaces. Medial compartment: The chondral surfaces are intact. Lateral compartment: The chondral surfaces are intact. Bone marrow: Mild T2 bone marrow signal intensity increase is seen at themedial margin ofthe patella. No focal lesions or fractures are present. No suprapatellar joint effusion is present. M ENISCI:Medial meniscus: Intact Lateral meniscus: Intact LIGAMENTS AND TENDONS:The is attenuation of the medial patellofemoral retinaculum with mildthickening of the lateral patellofemoral retinaculum. The extensormechanism, cruciate ligaments, medial collateral ligament and lateralcollateral ligamentous complex, iliotibial band, popliteus and bicepsfemoris tendons are intact. SOFT TISSUES:No muscle atrophy is demonstrated. No solid soft tissue masses are present. [facility], Radiant Results Inft User - 08/20/2020 3:24 PM CSTEXAM: MR KNEE LEFT WO CONTRASTHISTORY: 25 years-old Female intermittent chronic knee pain. Patient have arecent episode with sharp pain after a leg press.COMPARISON: Plain radiographfrom 03/16/2020, knee MR 10/22/2017.TECHNIQUE AND FINDINGS:1.5 Josselin multiplanar multi weighted MR imaging of the left knee wasperformed without contrast.BONE AND JOINT:The patellofemoral compartment: Lateral patellar subluxation is present.Grade 1 chondral loss of the lateral patellar and femoral articularsurfaces.Medial compartment: The chondral surfaces are intact. Lateral compartment: The chondral surfaces are intact. Bone marrow: Mild T2 bone marrow signal intensity increase is seen at themedial margin of the patella. No focal lesions or fractures are present.No suprapatellar joint effusion is present. MENISCI:Medial meniscus: IntactLateral meniscus: IntactLIGAMENTS AND TENDONS:The is attenuation of the medial patellofemoral retinaculum with mildthickening of the lateral patellofemoral retinaculum. The extensormechanism, cruciate ligaments, medial collateral ligament and lateralcollateral ligamentous complex, iliotibial band, popliteus and bicepsfemoris tendons are intact. SOFT TISSUES:No muscle atrophy is demonstrated. No solid soft tissue masses are present.IMPRESSION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Mild contusion over the medial aspect of the patella which may representsequela from a prior lateral patellofemoral dislocation and relocation.Preliminary Report Dictated by Resident: Alex Horan MD., have reviewed this study and agree with the abovereport.[facility] 2020-03-16 13:46:56 Large effusion. No fracture. EXAM: XR KNEE 3 VW LEFT HISTORY: new onset of instablity left knee with 2 falls in last 4 wks COMPARISON: None FINDINGS: Imaging of the left knee demonstrates a moderate si zed effusion. Alignmentis maintained. There is mild depression of the medial tibial plateau on thePAview. No fracture is appreciated. [facility], Radiant Results Inft User - 03/16/2020 8:48 AM CDTEXAM:XR KNEE 3 VW LEFTHISTORY:new onset of instablity left knee with 2 falls in last 4 wks COMPARISON:NoneFINDINGS: Imaging of the left knee demonstrates a moderate sized effusion. Alignmentis maintained. There is mild depression of the medial tibial plateau on thePA view. No fracture is appreciated.IMPRESSIONLarge effusion.No fracture.[facility]
--- NOTE | 2022-08-09 02:07 | EDPHYS ---
Physician Documentation [facility] Name: Taylor Rodriguez Age: 27 yrs Sex: Female : 1995 Arrival Date: 08/09/2022 Time: 00:49 Bed 3 Private MD: ED Physician Chilango Boucher HPI: 08/09 02:54 This 27 yrs old Black Female presents to ER via Wheelchair with complaints of panic kdr attack. 02:58 Patient presented to the ED in private vehicle brought here by her mother. Patient had kdr eaten some food which she thought may have been tampered with since they were an hour later delivering it. She suddenly became panic stricken and started convulsing and could not stop.. Onset: The symptoms/episode began/occurred suddenly, just prior to arrival. Severity of symptoms: At their worst the symptoms were incapacitating in the emergency department the symptoms are unchanged. The patient has experienced similar episodes in the past, a few times. The patient has not recently seen a physician. Historical: - Allergies: 00:49 Naproxen; ke1 - PMHx: 00:49 Anxiety; Depression; Fibromyalgia; High Blood Pressure; Schizophrenia; ke1 - Social history:: Smoking status: Reported history of juuling and/or vaping. ROS: 02:58 Constitutional: Negative for fever, chills, and weight loss, Eyes: Negative for injury, kdr pain, redness, and discharge, ENT: Negative for injury, pain, and discharge, Neck: Negative for injury, pain, and swelling, Cardiovascular: Negative for chest pain, palpitations, and edema, Respiratory: Negative for shortness of breath, cough, wheezing, and pleuritic chest pain, Abdomen/GI: Negative for abdominal pain, nausea, vomiting, diarrhea, and constipation, Back: Negative for injury and pain, : Negative for injury, bleeding, discharge, and swelling, MS/Extremity: Negative for injury and deformity, Skin: Negative for injury, rash, and discoloration, Neuro: Negative for headache, weakness, numbness, tingling, and seizure activity. Allergy/Immunology: Negative for hives, rash, and allergies, Endocrine: Negative for neck swelling, polydipsia, polyuria, polyphagia, and marked weight changes, Hematologic/Lymphatic: Negative for swollen nodes, abnormal bleeding, and unusual bruising. 02:58 Psych: Positive for anxiety, Negative for auditory hallucinations, visual hallucinations, homicidal ideation, insomnia, suicide gesture, suicidal ideation. Exam: 02:58 Constitutional: This is a well developed, well nourished patient who is awake, alert, kdr and in extreme distress. Head/Face: Normocephalic, atraumatic. Eyes: Pupils equal round and reactive to light, extra-ocular motions intact. Lids and lashes normal. Conjunctiva and sclera are non-icteric and not injected. Cornea within normal limits. Periorbital areas with no swelling, redness, or edema. Neck: Trachea midline, no thyromegaly or masses palpated, and no cervical lymphadenopathy. Supple, full range of motion without nuchal rigidity, or vertebral point tenderness. No Meningismus. Chest/axilla: Normal chest wall appearance and motion. Nontender with no deformity. No lesions are appreciated. Cardiovascular: Regular rate and rhythm with a normal S1 and S2. No gallops, murmurs, or rubs. Normal PMI, no JVD. No pulse deficits. Respiratory: Lungs have equal breath sounds bilaterally, clear to auscultation and percussion. No rales, rhonchi or wheezes noted. No increased work of breathing, no retractions or nasal flaring. Abdomen/GI: Soft, non-tender, with normal bowel sounds. No distension or tympany. No guarding or rebound. No evidence of tenderness throughout. Back: No spinal tenderness. No costovertebral tenderness. Full range of motion. Skin: Warm, dry with normal turgor. Normal color with no rashes, no lesions, and no evidence of cellulitis. MS/ Extremity: Pulses equal, no cyanosis. Neurovascular intact. Full, normal range of motion. Neuro: Awake and alert, GCS 15, oriented to person, place, time, and situation. Cranial nerves II-XII grossly intact. Motor strength 5/5 in all extremities. Sensory grossly intact. Cerebellar exam normal. Normal gait. 02:58 Psych: Behavior/mood is anxious, Seemingly convulsing. Affect is animated, Oriented to person, place, time, Patient has no thoughts/intents to harm self or others. Delusions/hallucinations are not present. Vital Signs: 00:50 BP 140 / 102; Pulse 91; Resp 22; Temp 98.2; Pulse Ox 95% ; Weight 111.13 kg; Height 5 ke1 ft. 2 in. (157.48 cm); Pain 0/10; 02:06 BP 145 / 109; Pulse 86; Resp 16; Pulse Ox 100% on R/A; jb4 00:50 Body Mass Index 44.81 (111.13 kg, 157.48 cm) ke1 MDM: 02:06 Patient medically screened. kdr 02:58 Data reviewed: vital signs, nurses notes. Counseling: I had a detailed discussion with kdr the patient and/or guardian regarding: the historical points, exam findings, and any diagnostic results supporting the discharge/admit diagnosis, the need for outpatient follow up. ED course: With smelling salts, the convulsive behavior was interrupted and the patient slowly returned to baseline. She was then able to answer questions and describe the precipitating events leading up to her being brought to the ED by her mother. Patient remained calm and appropriate in the ED and was discharged without further issues or concerns. Patient was happy with the care provided and the plan for discharge and follow-up. Administered Medications: No medications were administered Disposition Summary: 08/09/22 02:06 Discharge Ordered Location: Home kdr Problem: new kdr Symptoms: have improved kdr Condition: Stable kdr Diagnosis - Anxiety disorder, unspecified kdr Followup: kdr - With: Private Physician - When: 2 - 3 days - Reason: If symptoms return, Further diagnostic work-up, Recheck today's complaints, Continuance of care, Re-evaluation by your physician Discharge Instructions: - Discharge Summary Sheet kdr - Panic Attack, [id number] kdr - Generalized Anxiety Disorder, Adult kdr Forms: - Medication Reconciliation Form kdr - Thank You Letter kdr Signatures: Chilango Boucher MD MD kdr Shantell Simms RN RN ke1
--- NOTE | 2022-08-09 02:07 | ER ---
Nurse's Notes [facility] Name: Taylor Rodriguez Age: 27 yrs Sex: Female : 1995 Arrival Date: 08/09/2022 Time: 00:49 Bed 3 Private MD: Diagnosis: Anxiety disorder, unspecified Presentation: 08/09 00:50 Chief complaint: Patient states: Clio anxious after eating food with bad taste, arrived ke1 extremely shaky. Coronavirus screen: Vaccine status: Patient reports receiving the 2nd dose of the covid vaccine. Ebola Screen: No symptoms or risks identified at this time. Initial Sepsis Screen: Does the patient meet any 2 criteria? Yes Does the patient have a suspected source of infection? No. Patient's initial sepsis screen is negative. Risk Assessment: Do you want to hurt yourself or someone else? Patient reports no desire to harm self or others. Onset of symptoms was August 08, 2022 at 23:30. 00:50 Method Of Arrival: Wheelchair ke1 00:50 Acuity: MILAN 3 ke1 Triage Assessment: 00:56 General: Appears distressed, obese, Behavior is anxious. Pain: Denies pain. ke1 00:57 EENT: Neuro: Khan Agitation-Sedation Scale (RASS): +1 Restless. ke1 00:57 Neuro: Level of Consciousness is alert, Oriented to person, place, time, situation. ke1 Respiratory: Respiratory effort is even, unlabored, Respiratory pattern is tachypnea. Historical: - Allergies: 00:49 Naproxen; ke1 - PMHx: 00:49 Anxiety; Depression; Fibromyalgia; High Blood Pressure; Schizophrenia; ke1 - Social history:: Smoking status: Reported history of juuling and/or vaping. Screenin:55 Abuse screen: Denies threats or abuse. Nutritional screening: No deficits noted. ke1 Tuberculosis screening: No symptoms or risk factors identified. Fall Risk No fall in past 12 months (0 pts). No secondary diagnosis (0 pts). No IV (0 pts). Ambulatory Aid- None/Bed Rest/Nurse Assist (0 pts). Gait- Normal/Bed Rest/Wheelchair (0 pts) Mental Status- Oriented to own ability (0 pts). Total Jarrett Fall Scale indicates No Risk (0-24 pts). Assessment: 01:39 Reassessment: Patient states feeling better. Patient states symptoms have improved. ke1 Neuro: Khan Agitation-Sedation Scale (RASS): 0 - Alert and Calm Level of Consciousness is awake, alert, Oriented to person, place, time, situation. 02:06 Reassessment: Patient appears in no apparent distress at this time. Patient and/or jb4 family updated on plan of care and expected duration. Pain level reassessed. Patient is alert, oriented x 3, equal unlabored respirations, skin warm/dry/pink. Patient states feeling better. Patient states symptoms have improved. Vital Signs: 00:50 BP 140 / 102; Pulse 91; Resp 22; Temp 98.2; Pulse Ox 95% ; Weight 111.13 kg; Height 5 ke1 ft. 2 in. (157.48 cm); Pain 0/10; 02:06 BP 145 / 109; Pulse 86; Resp 16; Pulse Ox 100% on R/A; jb4 00:50 Body Mass Index 44.81 (111.13 kg, 157.48 cm) ke1 ED Course: 00:49 Patient arrived in ED. ds4 00:49 Shantell Simms, RN is Primary Nurse. ke1 00:52 Chilango Boucher MD is Attending Physician. kdr 00:55 Triage completed. ke1 00:56 Arm band placed on right wrist. ke1 00:56 Side rails up X 1. Side rails up X2. Adult w/ patient. ke1 02:23 No provider procedures requiring assistance completed. IV discontinued, intact, jb4 bleeding controlled, No redness/swelling at site. Pressure dressing applied. Administered Medications: No medications were administered Outcome: 02:06 Discharge ordered by . kdr 02:23 Discharged to home via wheelchair, with family. jb4 02:23 Condition: stable 02:23 Discharge instructions given to patient, family, Instructed on discharge instructions, follow up and referral plans. Demonstrated understanding of instructions, follow-up care. 02:23 Patient left the ED. jb4 Signatures: Chilango Boucher MD MD kdr Swanson, Donovan ds4 Link Nath RN RN jb4 Shantell Simms RN RN ke1
[2022-08-09 16:45] VITALS: TEMP 98.2
[2022-08-09 16:47] VITALS: BP 145/109; O2SAT 100
== END 2022-08-09 02:23 | disposition home or self-care (01) ==
LOC: ER 00:43
DX: F41.9 Anxiety disorder, unspecified (principal); Z88.5 Allergy status to narcotic agent
CPT/HCPCS: 99281

== ENCOUNTER 2022-10-10 10:31 | Emergency (ER) | payer OTHER, SELFPAY ==
[2022-10-10] MEDS ORDERED: ACETAMINOPHEN 500 MG TAB ONE (11:19)
[2022-10-10] MEDS ORDERED: NA CHLORIDE 0.9% 1,000 ML ONE (11:20)
--- OUTSIDE RECORDS SUMMARY | 2022-10-10 11:24 | XMS REPORT | Continuity of Care Document ---
:1995 Author Organization [facility] t Address [address] [place] [address] Care Team Providers Name Role Phone Roman YOUNG, [facility] Primary Care Physician [phone] DARLIN VICK Attending Clinician Unavailable ROBYN GARY Attending Clinician Unavailable [id number] Attending Clinician Unavailable DAR_CHRISTINA Attending Clinician Unavailable ANNEMARIE GRAFF Attending Clinician Unavailable Alexandre Wick Attending Clinician SHEY BIANCHI Attending Clinician Unavailable Doctor Unassigned, [place] Attending Clinician Unavailable Shey Bianchi MD Attending Clinician ALEXANDRE DELGADO Attending Clinician Unavailable James Sosa MD Attending Clinician Care, Aries Primary Attending Clinician Unavailable ILIANA LAMAR Attending Clinician Unavailable Annemarie Alexander Attending Clinician Dannie Botello MD Attending Clinician DANNIE BOTELLO Attending Clinician Unavailable AMBNEFTALY_CHRISTINA Admitting Clinician Unavailable ALEXANDRE DELGADO Admitting Clinician Unavailable Payers Payer Name Policy Type Policy Number Effective Date Expiration Date S dameon [employer] MP SILVER: 9 [id number] 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 1-10 Seybold depressive depressive 00:00: - disorder, disorder, 00 Exte rna in partial in partial l remission remission ROZINA ROZINA Disease Active Jelena (generaliz (generaliz 1-10 Se ybold ed anxiety ed anxiety 00:00: - disorder) disorder) 00 Exte rna l Fibromyalg Fibromyalg Disease Active K elsey ia ia 1-10 Seybold 00:00: - 00 Externa l Lupus Lupus Disease Active Jelena 1-10 Seybold 00:00: - 00 Externa l PTSD PTSD Disease Active 2017-08 [facility] (post-trau (post-trau 2-20 it y of matic matic 00:00: [place] stress stress 00 Medical disorder) disorder) Bran ch Galactorrh Galactorrh Disease Active 2016-08 U ora ea ea 2-14 ity of 00:00: 00 Medical Branch Decreased 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 Disease Active 2016-08 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 0-12 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 00:00: Medical Branch Decreased Decreased Disease Active 2016-08 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 0-12 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 00:00: [place] 00 Medical Branch Pain Pain Disease Active 2016-08 Univers 0-12 ity of 00:00: 00 Medical Branch 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 0-12 it y of 00:00: Medical Branch 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 9-14 ity of 00:00: Medical Branch Manic Manic Disease Active Univers depression depression 9-14 it y of 00:00: 00 Medical Branch Allergies, Adverse Reactions, Alerts Allergy Allergy Status Severity Reaction(s) Onset Inactive Treating Comm ents Source Name Type Date Date Clinician Naproxen Propensi Active 2021-08 - Oral ty to 2-15 adverse 00:00: reaction 00 to drug Naproxen Propensi Active Other Jelena ty to 5-09 reaction( Seybold adverse 00:00: s): - reaction 00 Unknown Externa s l Naproxen Propensi Active Nausea Univer s ty to and/or 04-28 ity of adverse Vomiting 00:00: [place] reaction 00 Medical s Branch NAPROXEN DRUG Active N/V Univers INGREDI 8 ity of 00:00: [place] 00 Medical Branch Naproxen Propensi Active ty to 5-19 adverse 00:00: reaction 00 to drug Codeine Propensi Active Jelena ty to 5-19 Seybold adverse 00:00: - reaction 00 Externa s l NO KNOWN Drug Active Univers ALLERGIE Class ity of S [facility] Social History Social Habit Start Date Stop Date Quantity Comments Source History SDOH Jelena Ashley ld - Alcohol Frequency Externa l History SDOH Jelena Ashley ld - Alcohol Std External Drinks History TUOH Jelena Ashley ld - Alcohol Binge External Exposure to Not sure University of SARS-CoV-2 [place] [facility] (event) Branch History of Cigarette Smoker Universi ty of tobacco use [facility] Alcohol intake 2022-09-24 2022-09-24 Current drinker Beth Ibrahim - 00:00:00 00:00:00 of alcohol External (finding) Alcohol Comment 2022-09-09 2022-09-09 rare Jelena henley - 00:00:00 00:00:00 External Tobacco use and 2022-09-09 2022-09-09 Smokeless tobacco Ke sveta Seybold - exposure 00:00:00 00:00:00 non-user External Tobacco Comment 2019-08-16 2019-08-16 Quit [facility] y of 00:00:00 00:00:00 smoking/vaping [facility] earlier this year Branch Sex Ass[birth year] At [birth year] F Jelena Malcolm ybold - 00:00:00 00:00:00 External Smoking Status Start Date Stop Date Source Never smoked tobacco Jelena Seyb old - External Former smoker 2020-09-07 00:00:00 2020-09-07 00:00:00 [facility] Current some day 2019-10-24 00:00:00 [facility] smoker [facility] Branch Medications Ordered Filled Start Stop Current Ordering Indication Dosage Frequency Signature Comments Components Source Medication Medication Date Date Medication? Clinician (SIG) Name Name Aripiprazol 2022- No Kelse y e 20 MG 1-25 -25 Seybold oral Tablet 11:11: 00:00 - 39 :00 Externa l Aripiprazol 2022- No [id number] 10mg Take 10 mg Jelena e 10 MG -25 -25 by mouth 2 Seybo ld oral Tablet 11:11: 00:00 times - 26 :00 daily Externa l Trazodone Yes [id number] 100mg Take 100 Jelena HCl 100 MG 1-25 mg by Seybold oral Tablet 10:31: mouth at - 22 bedtime Externa l Cyanocobala Yes Take by Emanuel sey min 1-25 mouth Seybold (VITAMIN B 10:31: - 12 OR) 22 Externa l hydroCHLORO Yes [id number] 12.5mg Take 1 Jelena thiazide 1-25 capsule Seybold 12.5 MG 00:00: (12.5 mg - oral 00 total) by Externa Capsule mouth l daily Ondansetron Yes [id number] 4mg [id number] Take 1 Jelena (ZOFRAN) 4 1-25 [id number] tablet (4 Seybold MG oral 00:00: 3D mg total) - TABLET 00 by mouth Externa DISPERSIBLE every 8 l hours as needed for nausea Tirzepatide Yes [id number] 2.5mg Inject 0.5 Jelena (Mounjaro) 1-25 mL (2.5 mg Sey bold 2.5 00:00: total) - MG/0.5ML 00 into the Externa subcutaneou skin once l s Solution a week Pen-injecto r Celecoxib Yes [id number] 200mg Take 1 Jelena (CeleBREX) 1-25 capsule Seybol d 200 MG oral 00:00: (200 mg - Capsule 00 total) by Externa mouth 2 l times daily Gabapentin 0 Yes [id number] 100mg Take 1 Jelena 100 MG oral 1-25 capsule Seybo ld Capsule 00:00: (100 mg - 00 total) by Externa mouth 3 l times daily Nexplanon Yes Jelena 68 MG 1-23 Seybold subcutaneou 00:00: - s Implant 00 Externa l Docusate 0 Yes [id number] 100mg Take 1 Ke lsey Sodium 1-13 capsule Seybold (Colace) 00:00: (100 mg - 100 MG oral 00 total) by Ext jonathan Capsule mouth l daily Ferrous Yes [id number] 325mg Take 1 Emanuel sey Sulfate 1-13 tablet Seybold (Iron) 325 00:00: (325 mg - (65 Fe) MG 00 total) by Exte rna oral Tablet mouth l daily (with breakfast) Nitrofurant 0 2022- No [id number] 100mg Take 1 Jelena oin Monohyd 1-13 -25 capsule Seyb old Macro 00:00: 00:00 (100 mg - (Macrobid) 00 :00 total) by Exte rna 100 MG oral mouth 2 l Capsule times daily Trazodone 0 Yes 100mg Take 100 Emanuel sey HCl 100 MG 1-10 mg by Seybold oral Tablet 08:59: mouth at - 14 bedtime Externa l Benztropine 0 2022- No 1mg Take 1 mg Jelena Mesylate 1 1-10 01-10 by mouth Seyb old MG oral 08:58: 00:00 daily - Tablet 46 :00 Externa l Aripiprazol 0 Yes 10mg Take 10 mg Jelena e 10 MG 1-10 by mouth 2 Seybol d oral Tablet 08:53: times - 55 daily Externa l Cyanocobala Yes Take by Emanuel woodard min 1-10 mouth Seybold (VITAMIN B 08:53: - 12 OR) 55 Externa l Dose No Unknown 2-03 00:00: 00 Dose 2021-0 No Unknown 2-03 00:00: 00 Dose 0 No Unknown 2-03 00:00: 00 Dose 0 No Unknown 1-12 00:00: 00 Dose 2021-0 No Unknown 1-12 00:00: 00 Dose 2021-0 No Unknown 1-12 00:00: 00 Dose 0 No Unknown 1-11 00:00: 00 Dose 0 No Unknown 1-11 00:00: 00 Dose 0 No Unknown 1-11 00:00: 00 Dose 2021-0 No Unknown 1-11 00:00: 00 Dose 0 No Unknown 1-11 00:00: 00 Dose 0 No Unknown 1-11 00:00: 00 LYRICA 150 2019-08 Yes [id number] Take 1 Univers mg capsule 2-21 capsule by ity of 00:00: mouth [place] 00 twice a Medical day for Branch neuropathi c pain as directed by physician. LYRICA 150 2019-08 Yes [id number] Take 1 Univers mg capsule 2-21 capsule by ity of 00:00: mouth [place] 00 twice a Medical day for Branch neuropathi c pain as directed by physician. LYRICA 150 2019-08 Yes [id number] Take 1 Univers mg capsule 2-21 capsule by ity of 00:00: mouth [place] 00 twice a Medical day for Branch neuropathi c pain as directed by physician. LYRICA 150 2019-08 Yes [id number] Take 1 Univers mg capsule 2-21 capsule by ity of 00:00: mouth [place] 00 twice a Medical day for Branch neuropathi c pain as directed by physician. LYRICA 150 2019-08 Yes [id number] Take 1 Univers mg capsule 2-21 capsule by ity of 00:00: mouth [place] 00 twice a Medical day for Branch neuropathi c pain as directed by physician. LYRICA 150 2019-08 Yes [id number] Take 1 Univers mg capsule 2-21 capsule by ity of 00:00: mouth [place] 00 twice a Medical day for Branch neuropathi c pain as directed by physician. LYRICA 150 2019- Yes [id number] Take 1 Univers mg capsule 2-21 capsule by ity of 00:00: mouth [place] 00 twice a Medical day for Branch neuropathi c pain as directed by physician. DULOXETINE 2020- No 60mg Take 60 mg Univers HCL 05-17 by mouth 3 ity of (CYMBALTA 16:16: 00:[place] (three[place]AL[place] 58 :00 times Medical daily. Branch DULOXETINE 2020- No 60mg Take 60 mg Univers HCL 05-17 by mouth 3 ity of (CYMBALTA 16:16: 00:[place] (three[place]AL[place] 58 :00 times Medical daily. Branch DULOXETINE 2020- No 60mg Take 60 mg Univers HCL 05-17 by mouth 3 ity of (CYMBALTA 16:16: 00:[place] (three[place]AL[place] 58 :00 times Medical daily. Branch aripiprazol 2020- No 5mg Take 5 mg Univers e (ABILIFY 05-17 by mouth 2 it y of ORAL) 16:16: 00:00 (two) [place] 00 :00 times Medical daily. Branch aripiprazol 0 2020- No 5mg Take 5 mg Univers e (ABILIFY 05-1717 by mouth 2 it y of ORAL) 16:16: 00:00 (two) [place] 00 :00 times Medical daily. Branch aripiprazol 0 2020- No 5mg Take 5 mg Univers e (ABILIFY 05-1717 by mouth 2 it y of ORAL) 16:16: 00:00 (two) [place] 00 :00 times Medical daily. Branch ofloxacin 2020-0 Yes [id number] 5[drp] Place 5 Univers 0.3 % otic - 35029 Drops in ity of drops 00:00: both ears [place] 00 3 (three) Medical times Branch daily. ofloxacin 2020-0 Yes [id number] 5[drp] Place 5 Univers 0.3 % otic 9-17 [id number] Drops in ity of drops 00:00: both ears [place] 00 3 (three) Medical times Branch daily. ofloxacin 2020-0 Yes [id number] 5[drp] Place 5 Univers 0.3 % otic 9-17 [id number] Drops in ity of drops 00:00: both ears [place] 00 3 (three) Medical times Branch daily. ofloxacin 2020-0 Yes [id number] 5[drp] Place 5 Univers 0.3 % otic 9-17 [id number] Drops in ity of drops 00:00: both ears [place] 00 3 (three) Medical times Branch daily. ofloxacin 2020-0 Yes [id number] 5[drp] Place 5 Univers 0.3 % otic 9-17 [id number] Drops in ity of drops 00:00: both ears [place] 00 3 (three) Medical times Branch daily. ofloxacin 2020-0 Yes [id number] 5[drp] Place 5 Univers 0.3 % otic 9-17 [id number] Drops in ity of drops 00:00: both ears [place] 00 3 (three) Medical times Branch daily. ofloxacin 2020-0 Yes [id number] 5[drp] Place 5 Univers 0.3 % otic 9-17 [id number] Drops in ity of drops 00:00: both ears [place] 00 3 (three) Medical times Branch daily. ofloxacin 2020-0 Yes [id number] 5[drp] Place 5 Univers 0.3 % otic 9-17 [id number] Drops in ity of drops 00:00: both ears [place] 00 3 (three) Medical times Branch daily. ofloxacin 2020-0 Yes [id number] 5[drp] Place 5 Univers 0.3 % otic 9-17 [id number] Drops in ity of drops 00:00: both ears [place] 00 3 (three) Medical times Branch daily. ofloxacin 2020-0 Yes [id number] 5[drp] Place 5 Univers 0.3 % otic 9-17 [id number] Drops in ity of drops 00:00: both ears [place] 00 3 (three) Medical times Branch daily. ofloxacin 2020-0 Yes [id number] 5[drp] Place 5 Univers 0.3 % otic 9-17 [id number] Drops in ity of drops 00:00: both ears [place] 00 3 (three) Medical times Branch daily. ofloxacin 2020-0 Yes [id number] 5[drp] Place 5 Univers 0.3 % otic 9-17 [id number] Drops in ity of drops 00:00: both ears [place] 00 3 (three) Medical times Branch daily. ofloxacin 2020-0 Yes [id number] 5[drp] Place 5 Univers 0.3 % otic 9-17 [id number] Drops in ity of drops 00:00: both ears [place] 00 3 (three) Medical times Branch daily. ofloxacin 2020-0 Yes [id number] 5[drp] Place 5 Univers 0.3 % otic 9-17 [id number] Drops in ity of drops 00:00: both ears [place] 00 3 (three) Medical times Branch daily. ofloxacin 2020-0 Yes [id number] 5[drp] Place 5 Univers 0.3 % otic 9-17 [id number] Drops in ity of drops 00:00: both ears [place] 00 3 (three) Medical times Branch daily. acetaminoph 2020- No [id number] 1{tbl} Take 1 U nivers [...] 4647 1{tbl} Take 1 U nivers en-codeine 05-17-25 tablet by ity of (TYLENOL-CO 00:00: 04:59 mouth [place] DEINE #3) 00 :00 every 4 Medical 300-30 mg (four) Branch tablet hours as needed for Pain (scale 7-10) for up to 7 days. Indication s: acute pain metoprolol 2020-0 Yes [id number] 50mg Take 1 Un nneka succinate 7-09 tablet by ity o f XL 50 mg 24 00:00: mouth [place] hr tablet 00 daily. Medical Branch hydroCHLORO 2020-0 Yes [id number] 25mg Take 1 Univers thiazide 25 7-09 tablet by ity of mg tablet 00:00: mouth [place] 00 daily. Medical Branch baclofen 10 2020-0 Yes [id number] 10mg Take 1 Univers mg tablet 03-08 [id number] tablet by ity of 00:00: mouth 3 [place] 00 (three) Medical times Branch daily as needed for Pain (scale 4-6). metoprolol 2020-0 Yes [id number] 50mg Take 1 Un nneka succinate 7-09 tablet by ity o f XL 50 mg 24 00:00: mouth [place] hr tablet 00 daily. Medical Branch hydroCHLORO 2020-0 Yes [id number] 25mg Take 1 Univers thiazide 25 7-09 tablet by ity of mg tablet 00:00: mouth [place] 00 daily. Medical Branch baclofen 10 2019-0 Yes [id number] 10mg Take 1 Univers mg tablet 03-08 [id number] tablet by ity of 00:00: mouth 3 [place] 00 (three) Medical times Branch daily as needed for Pain (scale 4-6). metoprolol 2020-0 Yes [id number] 50mg Take 1 Un nneka succinate 7-09 tablet by ity o f XL 50 mg 24 00:00: mouth [place] hr tablet 00 daily. Medical Branch hydroCHLORO 2020-0 Yes [id number] 25mg Take 1 Univers thiazide 25 7-09 tablet by ity of mg tablet 00:00: mouth [place] 00 daily. Medical Branch baclofen 10 2019-0 Yes [id number] 10mg Take 1 Univers mg tablet 03-08 [id number] tablet by ity of 00:00: mouth 3 [place] 00 (three) Medical times Branch daily as needed for Pain (scale 4-6). metoprolol 2020-0 Yes [id number] 50mg Take 1 Un nneka succinate 7-09 tablet by ity o f XL 50 mg 24 00:00: mouth [place] hr tablet 00 daily. Medical Branch hydroCHLORO 2020-0 Yes [id number] 25mg Take 1 Univers thiazide 25 7-09 tablet by ity of mg tablet 00:00: mouth [place] 00 daily. Medical Branch baclofen 10 2019-0 Yes [id number] 10mg Take 1 Univers mg tablet 03-08 [id number] tablet by ity of 00:00: mouth 3 [place] 00 (three) Medical times Branch daily as needed for Pain (scale 4-6). metoprolol 2020-0 Yes [id number] 50mg Take 1 Un nneka succinate 7-09 tablet by ity o f XL 50 mg 24 00:00: mouth [place] hr tablet 00 daily. Medical Branch hydroCHLORO 2020-0 Yes [id number] 25mg Take 1 Univers thiazide 25 7-09 tablet by ity of mg tablet 00:00: mouth [place] 00 daily. Medical Branch baclofen 10 2020-0 Yes [id number] 10mg Take 1 Univers mg tablet 03-08 [id number] tablet by ity of 00:00: mouth 3 [place] 00 (three) Medical times Branch daily as needed for Pain (scale 4-6). metoprolol 2020-0 Yes [id number] 50mg Take 1 Un nneka succinate 7-09 tablet by ity o f XL 50 mg 24 00:00: mouth [place] hr tablet 00 daily. Medical Branch hydroCHLORO 2020-0 Yes [id number] 25mg Take 1 Univers thiazide 25 7-09 tablet by ity of mg tablet 00:00: mouth [place] 00 daily. Medical Branch baclofen 10 2020-0 Yes [id number] 10mg Take 1 Univers mg tablet 03-08 [id number] tablet by ity of 00:00: mouth 3 [place] 00 (three) Medical times Branch daily as needed for Pain (scale 4-6). metoprolol 2020-0 Yes [id number] 50mg Take 1 Un nneka succinate 7-09 tablet by ity o f XL 50 mg 24 00:00: mouth [place] hr tablet 00 daily. Medical Branch hydroCHLORO 2020-0 Yes [id number] 25mg Take 1 Univers thiazide 25 7-09 tablet by ity of mg tablet 00:00: mouth [place] 00 daily. Medical Branch baclofen 10 2020-0 Yes [id number] 10mg Take 1 Univers mg tablet 03-08 [id number] tablet by ity of 00:00: mouth 3 [place] 00 (three) Medical times Branch daily as needed for Pain (scale 4-6). metoprolol 2020-0 Yes [id number] 50mg Take 1 Un nneka succinate 7-09 tablet by ity o f XL 50 mg 24 00:00: mouth [place] hr tablet 00 daily. Medical Branch hydroCHLORO 2020-0 Yes [id number] 25mg Take 1 Univers thiazide 25 7-09 tablet by ity of mg tablet 00:00: mouth [place] 00 daily. Medical Branch baclofen 10 2020-0 Yes [id number] 10mg Take 1 Univers mg tablet 7- [id number] tablet by ity of 00:00: mouth 3 [place] 00 (three) Medical times Branch daily as needed for Pain (scale 4-6). metoprolol 2020-0 Yes [id number] 50mg Take 1 Un nneka succinate 7-09 tablet by ity o f XL 50 mg 24 00:00: mouth [place] hr tablet 00 daily. Medical Branch hydroCHLORO 2020-0 Yes [id number] 25mg Take 1 Univers thiazide 25 7-09 tablet by ity of mg tablet 00:00: mouth [place] 00 daily. Medical Branch baclofen 10 2020-0 Yes [id number] 10mg Take 1 Univers mg tablet 7 [id number] tablet by ity of 00:00: mouth 3 [place] 00 (three) Medical times Branch daily as needed for Pain (scale 4-6). metoprolol 2020-0 Yes [id number] 50mg Take 1 Un nneka succinate 7-09 tablet by ity o f XL 50 mg 24 00:00: mouth [place] hr tablet 00 daily. Medical Branch hydroCHLORO 2020-0 Yes [id number] 25mg Take 1 Univers thiazide 25 7-09 tablet by ity of mg tablet 00:00: mouth [place] 00 daily. Medical Branch baclofen 10 2019-0 Yes [id number] 10mg Take 1 Univers mg tablet 7 [id number] tablet by ity of 00:00: mouth 3 [place] 00 (three) Medical times Branch daily as needed for Pain (scale 4-6). metoprolol 2020-0 Yes [id number] 50mg Take 1 Un nneka succinate 7-09 tablet by ity o f XL 50 mg 24 00:00: mouth [place] hr tablet 00 daily. Medical Branch hydroCHLORO 2020-0 Yes [id number] 25mg Take 1 Univers thiazide 25 7-09 tablet by ity of mg tablet 00:00: mouth [place] 00 daily. Medical Branch baclofen 10 2020-0 Yes [id number] 10mg Take 1 Univers mg tablet 7- [id number] tablet by ity of 00:00: mouth 3 [place] 00 (three) Medical times Branch daily as needed for Pain (scale 4-6). metoprolol 2020-0 Yes [id number] 50mg Take 1 Un nneka succinate 7-09 tablet by ity o f XL 50 mg 24 00:00: mouth [place] hr tablet 00 daily. Medical Branch hydroCHLORO 2020-0 Yes [id number] 25mg Take 1 Univers thiazide 25 7-09 tablet by ity of mg tablet 00:00: mouth [place] 00 daily. Medical Branch baclofen 10 2019-0 Yes [id number] 10mg Take 1 Univers mg tablet 7 [id number] tablet by ity of 00:00: mouth 3 [place] 00 (three) Medical times Branch daily as needed for Pain (scale 4-6). metoprolol 2020-0 Yes [id number] 50mg Take 1 Un nneka succinate 7-09 tablet by ity o f XL 50 mg 24 00:00: mouth [place] hr tablet 00 daily. Medical Branch hydroCHLORO 2019-0 Yes [id number] 25mg Take 1 Univers thiazide 25 7-09 tablet by ity of mg tablet 00:00: mouth [place] 00 daily. Medical Branch baclofen 10 2019-0 Yes [id number] 10mg Take 1 Univers mg tablet 03-08 [id number] tablet by ity of 00:00: mouth 3 [place] 00 (three) Medical times Branch daily as needed for Pain (scale 4-6). metoprolol 2020-0 Yes [id number] 50mg Take 1 Un nneka succinate 7-09 tablet by ity o f XL 50 mg 24 00:00: mouth [place] hr tablet 00 daily. Medical Branch hydroCHLORO 2019-0 Yes [id number] 25mg Take 1 Univers thiazide 25 7-09 tablet by ity of mg tablet 00:00: mouth [place] 00 daily. Medical Branch baclofen 10 2019-0 Yes [id number] 10mg Take 1 Univers mg tablet 7 [id number] tablet by ity of 00:00: mouth 3 [place] 00 (three) Medical times Branch daily as needed for Pain (scale 4-6). metoprolol 2020-0 Yes [id number] 50mg Take 1 Un nneka succinate 7-09 tablet by ity o f XL 50 mg 24 00:00: mouth [place] hr tablet 00 daily. Medical Branch hydroCHLORO 2020-0 Yes [id number] 25mg Take 1 Univers thiazide 25 7-09 tablet by ity of mg tablet 00:00: mouth [place] 00 daily. Medical Branch baclofen 10 2019-0 Yes [id number] 10mg Take 1 Univers mg tablet 7- [id number] tablet by ity of 00:00: mouth 3 [place] 00 (three) Medical times Branch daily as needed for Pain (scale 4-6). metoprolol 2020-0 Yes [id number] 50mg Take 1 Un nneka succinate 7-09 tablet by ity o f XL 50 mg 24 00:00: mouth [place] hr tablet 00 daily. Medical Branch hydroCHLORO 2020-0 Yes [id number] 25mg Take 1 Univers thiazide 25 7-09 tablet by ity of mg tablet 00:00: mouth [place] 00 daily. Medical Branch baclofen 10 2020-0 Yes [id number] 10mg Take 1 Univers mg tablet - [id number] tablet by ity of 00:00: mouth 3 [place] 00 (three) Medical times Branch daily as needed for Pain (scale 4-6). metoprolol 2020-0 Yes [id number] 50mg Take 1 Un nneka succinate 7-09 tablet by ity o f XL 50 mg 24 00:00: mouth [place] hr tablet 00 daily. Medical Branch hydroCHLORO 2020-0 Yes [id number] 25mg Take 1 Univers thiazide 25 7-09 tablet by ity of mg tablet 00:00: mouth [place] 00 daily. Medical Branch baclofen 10 2020-0 Yes [id number] 10mg Take 1 Univers mg tablet 03-08 [id number] tablet by ity of 00:00: mouth 3 [place] 00 (three) Medical times Branch daily as needed for Pain (scale 4-6). metoprolol 2020-0 Yes [id number] 50mg Take 1 Un nneka succinate 7-09 tablet by ity o f XL 50 mg 24 00:00: mouth [place] hr tablet 00 daily. Medical Branch hydroCHLORO 2020-0 Yes [id number] 25mg Take 1 Univers thiazide 25 7-09 tablet by ity of mg tablet 00:00: mouth [place] 00 daily. Medical Branch baclofen 10 2020-0 Yes [id number] 10mg Take 1 Univers mg tablet 7- [id number] tablet by ity of 00:00: mouth 3 [place] 00 (three) Medical times Branch daily as needed for Pain (scale 4-6). metoprolol 2020-0 Yes [id number] 50mg Take 1 Un nneka succinate 7-09 tablet by ity o f XL 50 mg 24 00:00: mouth [place] hr tablet 00 daily. Medical Branch hydroCHLORO 2020-0 Yes [id number] 25mg Take 1 Univers thiazide 25 7-09 tablet by ity of mg tablet 00:00: mouth [place] 00 daily. Medical Branch baclofen 10 2020-0 Yes [id number] 10mg Take 1 Univers mg tablet 7- [id number] tablet by ity of 00:00: mouth 3 [place] 00 (three) Medical times Branch daily as needed for Pain (scale 4-6). metoprolol 2020-0 Yes [id number] 50mg Take 1 Un nneka succinate 7-09 tablet by ity o f XL 50 mg 24 00:00: mouth [place] hr tablet 00 daily. Medical Branch hydroCHLORO 2020-0 Yes [id number] 25mg Take 1 Univers thiazide 25 7-09 tablet by ity of mg tablet 00:00: mouth [place] 00 daily. Medical Branch baclofen 10 2020-0 Yes [id number] 10mg Take 1 Univers mg tablet 7 [id number] tablet by ity of 00:00: mouth 3 [place] 00 (three) Medical times Branch daily as needed for Pain (scale 4-6). metoprolol 2020-0 Yes [id number] 50mg Take 1 Un nneka succinate 7-09 tablet by ity o f XL 50 mg 24 00:00: mouth [place] hr tablet 00 daily. Medical Branch hydroCHLORO 2020-0 Yes [id number] 25mg Take 1 Univers thiazide 25 7-09 tablet by ity of mg tablet 00:00: mouth [place] 00 daily. Medical Branch baclofen 10 2020-0 Yes [id number] 10mg Take 1 Univers mg tablet 7 [id number] tablet by ity of 00:00: mouth 3 [place] 00 (three) Medical times Branch daily as needed for Pain (scale 4-6). metoprolol 2020-0 Yes [id number] 50mg Take 1 Un nneka succinate 7-09 tablet by ity o f XL 50 mg 24 00:00: mouth [place] hr tablet 00 daily. Medical Branch hydroCHLORO 2020-0 Yes [id number] 25mg Take 1 Univers thiazide 25 7-09 tablet by ity of mg tablet 00:00: mouth [place] 00 daily. Medical Branch baclofen 10 2020-0 Yes [id number] 10mg Take 1 Univers mg tablet 7- [id number] tablet by ity of 00:00: mouth 3 [place] 00 (three) Medical times Branch daily as needed for Pain (scale 4-6). metoprolol 2020-0 Yes [id number] 50mg Take 1 Un nneka succinate 7-09 tablet by ity o f XL 50 mg 24 00:00: mouth [place] hr tablet 00 daily. Medical Branch hydroCHLORO 2020-0 Yes [id number] 25mg Take 1 Univers thiazide 25 7-09 tablet by ity of mg tablet 00:00: mouth [place] 00 daily. Medical Branch baclofen 10 2020-0 Yes [id number] 10mg Take 1 Univers mg tablet 7- [id number] tablet by ity of 00:00: mouth 3 [place] 00 (three) Medical times Branch daily as needed for Pain (scale 4-6). metoprolol 2020-0 Yes [id number] 50mg Take 1 Un nneka succinate 7-09 tablet by ity o f XL 50 mg 24 00:00: mouth [place] hr tablet 00 daily. Medical Branch hydroCHLORO 2020-0 Yes [id number] 25mg Take 1 [facility] thiazide 25 7-09 tablet by ity of mg tablet 00:00: mouth [place] 00 daily. Medical Branch baclofen 10 2019-0 Yes [id number] 10mg Take 1 [facility] mg tablet 7- [id number] tablet by ity of 00:00: mouth 3 [place] 00 (three) Medical times Branch daily as needed for Pain (scale 4-6). metoprolol 2020-0 Yes [id number] 50mg Take 1 Un nneka succinate 7-09 tablet by ity o f XL 50 mg 24 00:00: mouth [place] hr tablet 00 daily. Medical [facility] hydroCHLORO 2020-0 Yes [id number] 25mg Take 1 [facility] thiazide 25 7-09 tablet by ity of mg tablet 00:00: mouth [place] 00 daily. Medical Branch baclofen 10 2020-0 Yes [id number] 10mg Take 1 [facility] mg tablet 7- [id number] tablet by ity of 00:00: mouth 3 [place] 00 (three) Medical times Branch daily as needed for Pain (scale 4-6). DULOXETINE 2020-0 Yes 60mg Take 60 mg U nivers HCL 2-25 by mouth 3 ity of (CYMBALTA 14:58: (three) [place] ORAL) 32 times Medical daily. Branch VITAMIN B 2020-0 Yes Take by Unive rs COMPLEX 2-25 mouth. ity of ORAL 14:58: [place] 32 Medical Branch traZODONE 2020-0 Yes 100mg Take 100 Uni vers 100 mg 2-25 mg by ity of tablet 14:58: mouth at [place] [address] bedtime. Medical Branch benztropine 2020-0 Yes 1mg Take 1 mg U nivers 1 mg tablet 2-25 by mouth ity of 14:58: daily. [place] [address] Medical Branch DULOXETINE 2020-0 Yes 60mg Take 60 mg U nivers HCL 2-25 by mouth 3 ity of (CYMBALTA 14:58: (three) [place] ORAL) 32 times Medical daily. Branch VITAMIN B 2020-0 Yes Take by Unive rs COMPLEX 2-25 mouth. ity of ORAL 14:58: [place] [address] Medical Branch traZODONE 2020-0 Yes 100mg Take 100 Uni vers 100 mg 2-25 mg by ity of tablet 14:58: mouth at [place] [address] bedtime. Medical Branch benztropine 2020-0 Yes 1mg Take 1 mg U nivers 1 mg tablet 2-25 by mouth ity of 14:58: daily. [address] Branch DULOXETINE 2020-0 Yes 60mg Take 60 mg U nivers HCL 2-25 by mouth 3 ity of (CYMBALTA 14:58: (three) [place] ORAL) 32 times Medical daily. Branch VITAMIN B 2020-0 Yes Take by Unive rs COMPLEX 2-25 mouth. ity of ORAL 14:58: [place] [address] Medical Branch traZODONE 2020-0 Yes 100mg Take 100 Uni vers 100 mg 2-25 mg by ity of tablet 14:58: mouth at [place] [address] bedtime. Medical Branch benztropine 2020-0 Yes 1mg Take 1 mg U nivers 1 mg tablet 2-25 by mouth ity of 14:58: daily. [place] [address] Medical Branch DULOXETINE 2020-0 Yes 60mg Take 60 mg U nivers HCL 2-25 by mouth 3 ity of (CYMBALTA 14:58: (three) [place] ORAL) 32 times Medical daily. Branch VITAMIN B 2020-0 Yes Take by Unive rs COMPLEX 2-25 mouth. ity of ORAL 14:58: [place] [address] Medical Branch traZODONE 2020-0 Yes 100mg Take 100 [facility] vers 100 mg 2-25 mg by ity of tablet 14:58: mouth at [place] [address] bedtime. Medical Branch benztropine 2020-0 Yes 1mg Take 1 mg U nivers 1 mg tablet 2-25 by mouth ity of 14:58: daily. [place] [address] Medical Branch DULOXETINE 2020-0 Yes 60mg Take 60 mg U nivers HCL 2-25 by mouth 3 ity of (CYMBALTA 14:58: (three) [place] ORAL) 32 times Medical daily. Branch VITAMIN B 2020-0 Yes Take by Unive rs COMPLEX 2-25 mouth. ity of ORAL 14:58: [place] [address] Medical Branch traZODONE 2020-0 Yes 100mg Take 100 [facility] vers 100 mg 2-25 mg by ity of tablet 14:58: mouth at [place] [address] bedtime. Medical Branch benztropine 2020-0 Yes 1mg Take 1 mg U nivers 1 mg tablet 2-25 by mouth ity of 14:58: daily. [place] [address] Medical Branch DULOXETINE 2020-0 Yes 60mg Take 60 mg U nivers HCL 2-25 by mouth 3 ity of (CYMBALTA 14:58: (three) [place] ORAL) 32 times Medical daily. Branch VITAMIN B 2020-0 Yes Take by Unive rs COMPLEX 2-25 mouth. ity of ORAL 14:58: [place] [address] Medical Branch traZODONE 2020-0 Yes 100mg Take 100 [facility] vers 100 mg 2-25 mg by ity of tablet 14:58: mouth at [place] [address] bedtime. Medical Branch benztropine 2020-0 Yes 1mg Take 1 mg U nivers 1 mg tablet 2-25 by mouth ity of 14:58: daily. [place] [address] Medical Branch DULOXETINE 2020-0 Yes 60mg Take 60 mg U nivers HCL 2-25 by mouth 3 ity of (CYMBALTA 14:58: (three) [place] ORAL) 32 times Medical daily. Branch VITAMIN B 2020-0 Yes Take by Unive rs COMPLEX 2-25 mouth. ity of ORAL 14:58: [place] [address] Medical Branch traZODONE 2020-0 Yes 100mg Take 100 [facility] vers 100 mg 2-25 mg by ity of tablet 14:58: mouth at [place] [address] bedtime. Medical Branch benztropine 2020-0 Yes 1mg Take 1 mg U nivers 1 mg tablet 2-25 by mouth ity of 14:58: daily. [place] [address] Medical Branch DULOXETINE 2020-0 Yes 60mg Take 60 mg U nivers HCL 2-25 by mouth 3 ity of (CYMBALTA 14:58: (three) [place] ORAL) 32 times Medical daily. Branch VITAMIN B 2020-0 Yes Take by Unive rs COMPLEX 2-25 mouth. ity of ORAL 14:58: [place] [address] Medical Branch traZODONE 2020-0 Yes 100mg Take 100 [facility] vers 100 mg 2-25 mg by ity of tablet 14:58: mouth at [place] [address] bedtime. Medical Branch benztropine 2020-0 Yes 1mg Take 1 mg U nivers 1 mg tablet 2-25 by mouth ity of 14:58: daily. [place] [address] Medical Branch DULOXETINE 2020-0 Yes 60mg Take 60 mg U nivers HCL 2-25 by mouth 3 ity of (CYMBALTA 14:58: (three) [place] ORAL) 32 times Medical daily. Branch VITAMIN B 2020-0 Yes Take by Univ ers COMPLEX 2-25 mouth. ity of ORAL 14:58: [place] [address] Medical Branch traZODONE 2020-0 Yes 100mg Take 100 [facility] vers 100 mg 2-25 mg by ity of tablet 14:58: mouth at [place] [address] bedtime. Medical Branch benztropine 2020-0 Yes 1mg Take 1 mg U nivers 1 mg tablet 2-25 by mouth ity of 14:58: daily. [place] [address] Medical Branch DULOXETINE 2020-0 Yes 60mg Take 60 mg U nivers HCL 2-25 by mouth 3 ity of (CYMBALTA 14:58: (three) [place] ORAL) 32 times Medical daily. Branch VITAMIN B 2020-0 Yes Take by Unive rs COMPLEX 2-25 mouth. ity of ORAL 14:58: [place] [address] Medical Branch traZODONE 2020-0 Yes 100mg Take 100 [facility] vers 100 mg 2-25 mg by ity of tablet 14:58: mouth at [place] [address] bedtime. Medical Branch benztropine 2020-0 Yes 1mg Take 1 mg U nivers 1 mg tablet 2-25 by mouth ity of 14:58: daily. [place] [address] Medical Branch DULOXETINE 2020-0 Yes 60mg Take 60 mg U nivers HCL 2-25 by mouth 3 ity of (CYMBALTA 14:58: (three) [place] ORAL) 32 times Medical daily. Branch VITAMIN B 2020-0 Yes Take by Unive rs COMPLEX 2-25 mouth. ity of ORAL 14:58: [place] [address] Medical Branch traZODONE 2020-0 Yes 100mg Take 100 [facility] vers 100 mg 2-25 mg by ity of tablet 14:58: mouth at [place] [address] bedtime. Medical Branch benztropine 2020-0 Yes 1mg Take 1 mg U nivers 1 mg tablet 2-25 by mouth ity of 14:58: daily. [place] [address] Medical Branch DULOXETINE 2020-0 Yes 60mg Take 60 mg U nivers HCL 2-25 by mouth 3 ity of (CYMBALTA 14:58: (three) [place] ORAL) 32 times Medical daily. Branch VITAMIN B 2020-0 Yes Take by Unive rs COMPLEX 2-25 mouth. ity of ORAL 14:58: [place] [address] Medical Branch traZODONE 2020-0 Yes 100mg Take 100 [facility] vers 100 mg 2-25 mg by ity of tablet 14:58: mouth at [place] [address] bedtime. Medical Branch benztropine 2020-0 Yes 1mg Take 1 mg U nivers 1 mg tablet 2-25 by mouth ity of 14:58: daily. [place] [address] Medical Branch DULOXETINE 2020-0 Yes 60mg Take 60 mg U nivers HCL 2-25 by mouth 3 ity of (CYMBALTA 14:58: (three) [place] ORAL) 32 times Medical daily. Branch VITAMIN B 2020-0 Yes Take by Unive rs COMPLEX 2-25 mouth. ity of ORAL 14:58: [place] [address] Medical Branch traZODONE 2020-0 Yes 100mg Take 100 [facility] vers 100 mg 2-25 mg by ity of tablet 14:58: mouth at [place] [address] bedtime. Medical Branch benztropine 2020-0 Yes 1mg Take 1 mg U nivers 1 mg tablet 2-25 by mouth ity of 14:58: daily. [place] [address] Medical Branch DULOXETINE 2020-0 Yes 60mg Take 60 mg U nivers HCL 2-25 by mouth 3 ity of (CYMBALTA 14:58: (three) [place] ORAL) 32 times Medical daily. Branch VITAMIN B 2020-0 Yes Take by Unive rs COMPLEX 2-25 mouth. ity of ORAL 14:58: [place] [address] Medical Branch traZODONE 2020-0 Yes 100mg Take 100 [facility] vers 100 mg 2-25 mg by ity of tablet 14:58: mouth at [place] [address] bedtime. Medical Branch benztropine 2020-0 Yes 1mg Take 1 mg U nivers 1 mg tablet 2-25 by mouth ity of 14:58: daily. [place] [address] Medical Branch DULOXETINE 2020-0 Yes 60mg Take 60 mg U nivers HCL 2-25 by mouth 3 ity of (CYMBALTA 14:58: (three) [place] ORAL) 32 times Medical daily. Branch VITAMIN B 2020-0 Yes Take by Unive rs COMPLEX 2-25 mouth. ity of ORAL 14:58: [place] [address] Medical Branch traZODONE 2020-0 Yes 100mg Take 100 [facility] vers 100 mg 2-25 mg by ity of tablet 14:58: mouth at [place] [address] bedtime. Medical Branch benztropine 2020-0 Yes 1mg Take 1 mg U nivers 1 mg tablet 2-25 by mouth ity of 14:58: daily. [place] [address] Medical Branch DULOXETINE 2020-0 Yes 60mg Take 60 mg U nivers HCL 2-25 by mouth 3 ity of (CYMBALTA 14:58: (three) [place] ORAL) 32 times Medical daily. Branch VITAMIN B 2020-0 Yes Take by Unive rs COMPLEX 2-25 mouth. ity of ORAL 14:58: [place] [address] Medical Branch traZODONE 2020-0 Yes 100mg Take 100 [facility] vers 100 mg 2-25 mg by ity of tablet 14:58: mouth at [place] [address] bedtime. Medical Branch benztropine 2020-0 Yes 1mg Take 1 mg U nivers 1 mg tablet 2-25 by mouth ity of 14:58: daily. [place] [address] Medical Branch DULOXETINE 2020-0 Yes 60mg Take 60 mg U nivers HCL 2-25 by mouth 3 ity of (CYMBALTA 14:58: (three) [place] ORAL) 32 times Medical daily. Branch VITAMIN B 2020-0 Yes Take by Unive rs COMPLEX 2-25 mouth. ity of ORAL 14:58: [place] [address] Medical Branch traZODONE 2020-0 Yes 100mg Take 100 [facility] vers 100 mg 2-25 mg by ity of tablet 14:58: mouth at [place] [address] bedtime. Medical Branch benztropine 2020-0 Yes 1mg Take 1 mg U nivers 1 mg tablet 2-25 by mouth ity of 14:58: daily. [place] [address] Medical Branch VITAMIN B 2020-0 Yes Take by Unive rs COMPLEX 2-25 mouth. ity of ORAL 14:58: [place] [address] Medical Branch traZODONE 2020-0 Yes 100mg Take 100 [facility] vers 100 mg 2-25 mg by ity of tablet 14:58: mouth at [place] [address] bedtime. Medical Branch benztropine 2020-0 Yes 1mg Take 1 mg U nivers 1 mg tablet 2-25 by mouth ity of 14:58: daily. [address] Branch VITAMIN B 2020-0 Yes Take by Unive rs COMPLEX 2-25 mouth. ity of ORAL 14:58: [address] traZODONE 2020-0 Yes 100mg Take 100 [facility] vers 100 mg 2-25 mg by ity of tablet 14:58: mouth at [place] [address] bedtime. Medical Branch benztropine 2020-0 Yes 1mg Take 1 mg U nivers 1 mg tablet 2-25 by mouth ity of 14:58: daily. [address] VITAMIN B 2020-0 Yes Take by Unive rs COMPLEX 2-25 mouth. ity of ORAL 14:58: [address] traZODONE 2020-0 Yes 100mg Take 100 [facility] vers 100 mg 2-25 mg by ity of tablet 14:58: mouth at [place] [address] bedtime. Medical Branch benztropine 2020-0 Yes 1mg Take 1 mg U nivers 1 mg tablet 2-25 by mouth ity of 14:58: daily. [address] VITAMIN B 2020-0 Yes Take by Unive rs COMPLEX 2-25 mouth. ity of ORAL 14:58: [address] traZODONE 2020-0 Yes 100mg Take 100 [facility] vers 100 mg 2-25 mg by ity of tablet 14:58: mouth at [place] [address] bedtime. Medical Branch benztropine 2020-0 Yes 1mg Take 1 mg U nivers 1 mg tablet 2-25 by mouth ity of 14:58: daily. [address] VITAMIN B 2020-0 Yes Take by Unive rs COMPLEX 2-25 mouth. ity of ORAL 14:58: [address] traZODONE 2020-0 Yes 100mg Take 100 [facility] vers 100 mg 2-25 mg by ity of tablet 14:58: mouth at [place] [address] bedtime. Medical Branch benztropine 2020-0 Yes 1mg Take 1 mg U nivers 1 mg tablet 2-25 by mouth ity of 14:58: daily. [address] VITAMIN B 2020-0 Yes Take by Unive rs COMPLEX 2-25 mouth. ity of ORAL 14:58: [address] traZODONE 2020-0 Yes 100mg Take 100 [facility] vers 100 mg 2-25 mg by ity of tablet 14:58: mouth at [place] [address] bedtime. Medical Branch benztropine 2020-0 Yes 1mg Take 1 mg U nivers 1 mg tablet 2-25 by mouth ity of 14:58: daily. [address] Branch VITAMIN B 2020-0 Yes Take by Unive rs COMPLEX 2-25 mouth. ity of ORAL 14:58: [address] traZODONE 2020-0 Yes 100mg Take 100 [facility] vers 100 mg 2-25 mg by ity of tablet 14:58: mouth at [place] [address] bedtime. Medical Branch benztropine 2020-0 Yes 1mg Take 1 mg U nivers 1 mg tablet 2-25 by mouth ity of 14:58: daily. [address] VITAMIN B 2020-0 Yes Take by Unive rs COMPLEX 2-25 mouth. ity of ORAL 14:58: [address] traZODONE 2020-0 Yes 100mg Take 100 [facility] vers 100 mg 2-25 mg by ity of tablet 14:58: mouth at [place] [address] bedtime. Medical Branch benztropine 2020-0 Yes 1mg Take 1 mg U nivers 1 mg tablet 2-25 by mouth ity of 14:58: daily. [address] VITAMIN B 2020-0 Yes Take by Unive rs COMPLEX 2-25 mouth. ity of ORAL 14:58: [address] traZODONE 2020-0 Yes 100mg Take 100 [facility] vers 100 mg 2-25 mg by ity of tablet 14:58: mouth at [place] [address] bedtime. Medical Branch benztropine 2020-0 Yes 1mg Take 1 mg U nivers 1 mg tablet 2-25 by mouth ity of 14:58: daily. [address] VITAMIN B 2020-0 Yes Take by Unive rs COMPLEX 2-25 mouth. ity of ORAL 14:58: [address] traZODONE 2020-0 Yes 100mg Take 100 [facility] vers 100 mg 2-25 mg by ity of tablet 14:58: mouth at [place] [address] bedtime. Medical Branch benztropine 2020-0 Yes 1mg Take 1 mg U nivers 1 mg tablet 2-25 by mouth ity of 14:58: daily. [address] VITAMIN B 2020-0 Yes Take by Unive rs COMPLEX 2-25 mouth. ity of ORAL 14:58: [address] traZODONE 2020-0 Yes 100mg Take 100 [facility] vers 100 mg 2-25 mg by ity of tablet 14:58: mouth at [place] [address] bedtime. Medical Branch benztropine 2020-0 Yes 1mg Take 1 mg U nivers 1 mg tablet 2-25 by mouth ity of 14:58: daily. [address] VITAMIN B 2020-0 Yes Take by Unive rs COMPLEX 2-25 mouth. ity of ORAL 14:58: [address] traZODONE 2020-0 Yes 100mg Take 100 [facility] vers 100 mg 2-25 mg by ity of tablet 14:58: mouth at [place] [address] bedtime. Medical Branch benztropine 2020-0 Yes 1mg Take 1 mg U nivers 1 mg tablet 2-25 by mouth ity of 14:58: daily. [address] VITAMIN B 2020-0 Yes Take by Unive rs COMPLEX 2-25 mouth. ity of ORAL 14:58: [address] traZODONE 2020-0 Yes 100mg Take 100 [facility] vers 100 mg 2-25 mg by ity of tablet 14:58: mouth at [place] [address] bedtime. Medical Branch benztropine 2020-0 Yes 1mg Take 1 mg U nivers 1 mg tablet 2-25 by mouth ity of 14:58: daily. [address] VITAMIN B 2020-0 Yes Take by Unive rs COMPLEX 2-25 mouth. ity of ORAL 14:58: [address] traZODONE 2020-0 Yes 100mg Take 100 [facility] vers 100 mg 2-25 mg by ity of tablet 14:58: mouth at [place] [address] bedtime. Medical Branch benztropine 2020-0 Yes 1mg Take 1 mg U nivers 1 mg tablet 2-25 by mouth ity of 14:58: daily. [address] VITAMIN B 2020-0 Yes Take by Unive rs COMPLEX 2-25 mouth. ity of ORAL 14:58: [address] traZODONE 2020-0 Yes 100mg Take 100 [facility] vers 100 mg 2-25 mg by ity of tablet 14:58: mouth at [place] [address] bedtime. Medical Branch benztropine 2020-0 Yes 1mg Take 1 mg U nivers 1 mg tablet 2-25 by mouth ity of 14:58: daily. [place] 32 [facility] Branch aripiprazol 2020-0 Yes 5mg Take 5 [...] 2-24 by mouth ity of 17:16: daily. [place] [address] Medical Branch ARIPiprazol 2020-0 Yes 10mg Take [...] 2-24 by mouth ity of 17:16: daily. [place] [address] Medical Branch ARIPiprazol 2020-0 Yes 10mg Take [...] 2-24 by mouth ity of 17:16: daily. [place] 05 [facility] Branch ARIPiprazol 2020-0 Yes 10mg Take [...] COMPLEX 2-24 mouth. ity of ORAL 17:15: [place] 45 [facility] traZODONE 2020-0 Yes 100mg Take 100 Uni vers 100 mg 2-24 mg by ity of tablet 17:15: mouth at [place] 45 bedtime. Medical Branch DULOXETINE 2020-0 Yes 60mg Take 60 mg U nivers HCL 2-24 by mouth 3 ity of (CYMBALTA 17:15: (three) [place] ORAL) 45 times Medical daily. Branch VITAMIN B 2020-0 Yes Take by Unive rs COMPLEX 2-24 mouth. ity of ORAL 17:15: [place] 45 Medical Branch traZODONE 2020-0 Yes 100mg Take 100 Uni vers 100 mg 2-24 mg by ity of tablet 17:15: mouth at [place] [address] bedtime. Medical Branch DULOXETINE 2020-0 Yes 60mg Take 60 mg U nivers HCL 2-24 by mouth 3 ity of (CYMBALTA 17:15: (three) [place] ORAL) 45 times Medical daily. Branch VITAMIN B 2020-0 Yes Take by Unive rs COMPLEX 2-24 mouth. ity of ORAL 17:15: [place] 45 Medical Branch traZODONE 2020-0 Yes 100mg Take 100 Uni vers 100 mg 2-24 mg by ity of tablet 17:15: mouth at [place] 45 bedtime. Medical Branch OLANZapine 2020-0 2020- No 20mg Take 20 mg [facility] 20 mg 2-24 02-24 by mouth ity of tablet 17:15: 00:00 at [place] 35 :00 bedtime. Medical Branch OLANZapine 2020-0 2020- No 20mg Take 20 mg [facility] 20 mg 2-24 02-24 by mouth ity of tablet 17:15: 00:00 at [place] 35 :00 bedtime. Medical Branch OLANZapine 2020-0 2020- No 20mg Take 20 mg [facility] 20 mg 2-24 02-24 by mouth ity of tablet 17:15: 00:00 at [place] 35 :00 bedtime. Medical Branch OLANZapine 2019-0 2020- No 10mg Take 10 mg [facility] (ZYPREXA) 2-24 -24 by mouth 2 ity of 10 mg 17:15: 00:00 (two) [place] tablet 26 :00 times Medical daily. Branch OLANZapine 2020- No 10mg Take 10 mg [facility] (ZYPREXA) 2-24 -24 by mouth 2 ity of 10 mg 17:15: 00:00 (two) [place] tablet 26 :00 times Medical daily. Branch OLANZapine 2020- No 10mg Take 10 mg [facility] (ZYPREXA) 2-24 -24 by mouth 2 ity of 10 mg 17:15: 00:00 (two) [place] tablet 26 :00 times Medical daily. Branch DULoxetine 2020- No Take 3 [facility] ers 30 mg 2-24 02-24 capsules ity of capsule 17:15: 00:00 by mouth [place] 09 :00 daily. Medical Branch DULoxetine 2019-0 2020- No Take 3 [facility] ers 30 mg 2-24 -24 capsules ity of capsule 17:15: 00:00 by mouth [place] 09 :00 daily. Medical Branch DULoxetine 0 2020- No Take 3 [facility] ers 30 mg 2-24 02-24 capsules ity of capsule 17:15: 00:00 by mouth [place] 09 :00 daily. Medical Branch metoprolol 2019-0 Yes [id number] 50mg Take 1 Un nneka succinate 2-24 tablet by ity o f XL 50 mg 24 00:00: mouth [place] hr tablet 00 daily. [facility] Branch metoprolol 2020-0 Yes [id number] 50mg Take 1 Un nneka succinate 2-24 tablet by ity o f XL 50 mg 24 00:00: mouth [place] hr tablet 00 daily. Medical Branch metoprolol 2019-0 Yes [id number] 50mg Take 1 Un nneka succinate 2-24 tablet by ity o f XL 50 mg 24 00:00: mouth [place] hr tablet 00 daily. [facility] Branch metoprolol 2020-0 Yes [id number] 50mg Take 1 Un nneka succinate 2-24 tablet by ity o f XL 50 mg 24 00:00: mouth [place] hr tablet 00 daily. [facility] Branch metoprolol 2019-0 Yes [id number] 50mg Take 1 Un nneka succinate 2-24 tablet by ity o f XL 50 mg 24 00:00: mouth [place] hr tablet 00 daily. [facility] Branch metoprolol 2020-0 Yes [id number] 50mg Take 1 Un nneka succinate 2-24 tablet by ity o f XL 50 mg 24 00:00: mouth [place] hr tablet 00 daily. Medical Branch metoprolol 2019-0 Yes [id number] 50mg Take 1 Un nneka succinate 2-24 tablet by ity o f XL 50 mg 24 00:00: mouth [place] hr tablet 00 daily. Medical Branch metoprolol 2019-0 Yes [id number] 50mg Take 1 Un nneka succinate 2-24 tablet by ity o f XL 50 mg 24 00:00: mouth [place] hr tablet 00 daily. Medical Branch metoprolol 2019-0 Yes [id number] 50mg Take 1 Un nneka succinate 2-24 tablet by ity o f XL 50 mg 24 00:00: mouth [place] hr tablet 00 daily. [facility] Branch metoprolol 2019-0 Yes [id number] 50mg Take 1 Un nneka succinate 2-24 tablet by ity o f XL 50 mg 24 00:00: mouth [place] hr tablet 00 daily. Medical Branch metoprolol 0 2020- No [id number] 50mg Take 1 U nivers succinate 2-24 -09 tablet by ity of XL 50 mg 24 00:00: 00:00 mouth [place] hr tablet 00 :00 daily. [facility] Branch metoprolol 0 2020- No [id number] 50mg Take 1 U nivers succinate 2-24 -09 tablet by ity of XL 50 mg 24 00:00: 00:00 mouth [place] hr tablet 00 :00 daily. [facility] metoprolol 2019-0 2020- No [id number] 50mg Take 1 U nivers succinate 2-24 07-09 tablet by ity of XL 50 mg 24 00:00: 00:00 mouth [place] hr tablet 00 :00 daily. [facility] Branch metoprolol 2019-0 2020- No [id number] 50mg Take 1 U nivers succinate 2-24 07-09 tablet by ity of XL 50 mg 24 00:00: 00:00 mouth [place] hr tablet 00 :00 daily. [facility] Branch hydroCHLORO 2020-0 Yes [id number] 25mg Take 1 [facility] thiazide 25 1-30 tablet by ity of mg tablet 00:00: mouth [place] 00 daily. Medical Branch meloxicam 2019-0 Yes [id number] 15mg Take 1 U nivers 15 mg 1-30 tablet by ity of tablet 00:00: mouth [place] 00 daily. Medical Branch metoprolol 2020-0 Yes [id number] 25mg Take 1 Un nneka succinate 1-30 tablet by ity o f XL 25 mg 24 00:00: mouth [place] hr tablet 00 daily. Medical Branch pregabalin 2020-0 Yes [id number] 150mg Take 1 [facility] (LYRICA) 1-30 capsule by ity o f 150 mg 00:00: mouth 2 [place] capsule 00 (two) Medical times Branch daily. hydroCHLORO 2020-0 Yes [id number] 25mg Take 1 [facility] thiazide 25 1-30 tablet by ity of mg tablet 00:00: mouth [place] 00 daily. Medical Branch meloxicam 2020-0 Yes [id number] 15mg Take 1 U nivers 15 mg 1-30 tablet by ity of tablet 00:00: mouth [place] 00 daily. Medical Branch metoprolol 2020-0 Yes [id number] 25mg Take 1 Un nneka succinate 1-30 tablet by ity o f XL 25 mg 24 00:00: mouth [place] hr tablet 00 daily. Medical Branch pregabalin 2020-0 Yes [id number] 150mg Take 1 [facility] (LYRICA) 1-30 capsule by ity o f 150 mg 00:00: mouth 2 [place] capsule 00 (two) Medical times Branch daily. hydroCHLORO 2020-0 Yes [id number] 25mg Take 1 [facility] thiazide 25 1-30 tablet by ity of mg tablet 00:00: mouth [place] 00 daily. Medical Branch meloxicam 2020-0 Yes [id number] 15mg Take 1 U nivers 15 mg 1-30 tablet by ity of tablet 00:00: mouth [place] 00 daily. Medical Branch pregabalin 2020-0 Yes [id number] 150mg Take 1 [facility] (LYRICA) 1-30 capsule by ity o f 150 mg 00:00: mouth 2 [place] capsule 00 (two) Medical times Branch daily. hydroCHLORO 2020-0 Yes [id number] 25mg Take 1 [facility] thiazide 25 1-30 tablet by ity of mg tablet 00:00: mouth [place] 00 daily. Medical Branch meloxicam 2020-0 Yes [id number] 15mg Take 1 U nivers 15 mg 1-30 tablet by ity of tablet 00:00: mouth [place] 00 daily. Medical Branch pregabalin 2020-0 Yes [id number] 150mg Take 1 [facility] (LYRICA) 1-30 capsule by ity o f 150 mg 00:00: mouth 2 [place] capsule 00 (two) Medical times Branch daily. hydroCHLORO 2020-0 Yes [id number] 25mg Take 1 [facility] thiazide 25 1-30 tablet by ity of mg tablet 00:00: mouth [place] 00 daily. Medical Branch meloxicam 2020-0 Yes [id number] 15mg Take 1 U nivers 15 mg 1-30 tablet by ity of tablet 00:00: mouth [place] 00 daily. Medical Branch pregabalin 2020-0 Yes [id number] 150mg Take 1 [facility] (LYRICA) 1-30 capsule by ity o f 150 mg 00:00: mouth 2 [place] capsule 00 (two) Medical times Branch daily. hydroCHLORO 2020-0 Yes [id number] 25mg Take 1 [facility] thiazide 25 1-30 tablet by ity of mg tablet 00:00: mouth [place] 00 daily. Medical Branch meloxicam 2020-0 Yes [id number] 15mg Take 1 U nivers 15 mg 1-30 tablet by ity of tablet 00:00: mouth [place] 00 daily. Medical Branch pregabalin 2020-0 Yes [id number] 150mg Take 1 [facility] (LYRICA) 1-30 capsule by ity o f 150 mg 00:00: mouth 2 [place] capsule 00 (two) Medical times Branch daily. hydroCHLORO 2020-0 Yes [id number] 25mg Take 1 [facility] thiazide 25 1-30 tablet by ity of mg tablet 00:00: mouth [place] 00 daily. Medical Branch meloxicam 2020-0 Yes [id number] 15mg Take 1 U nivers 15 mg 1-30 tablet by ity of tablet 00:00: mouth [place] 00 daily. Medical Branch pregabalin 2020-0 Yes [id number] 150mg Take 1 [facility] (LYRICA) 1-30 capsule by ity o f 150 mg 00:00: mouth 2 [place] capsule 00 (two) Medical times Branch daily. hydroCHLORO 2020-0 Yes [id number] 25mg Take 1 [facility] thiazide 25 1-30 tablet by ity of mg tablet 00:00: mouth [place] 00 daily. Medical Branch meloxicam 2020-0 Yes [id number] 15mg Take 1 U nivers 15 mg 1-30 tablet by ity of tablet 00:00: mouth [place] 00 daily. Medical Branch pregabalin 2020-0 Yes [id number] 150mg Take 1 [facility] (LYRICA) 1-30 capsule by ity o f 150 mg 00:00: mouth 2 [place] capsule 00 (two) Medical times Branch daily. hydroCHLORO 2020-0 Yes [id number] 25mg Take 1 [facility] thiazide 25 1-30 tablet by ity of mg tablet 00:00: mouth [place] 00 daily. Medical Branch meloxicam 2020-0 Yes [id number] 15mg Take 1 U nivers 15 mg 1-30 tablet by ity of tablet 00:00: mouth [place] 00 daily. Medical Branch pregabalin 2020-0 Yes [id number] 150mg Take 1 [facility] (LYRICA) 1-30 capsule by ity o f 150 mg 00:00: mouth 2 [place] capsule 00 (two) Medical times [place] daily. hydroCHLORO 2020-0 Yes [id number] 25mg Take 1 [facility] thiazide 25 1-30 tablet by ity of mg tablet 00:00: mouth [place] 00 daily. [facility] meloxicam 2020-0 Yes [id number] 15mg Take 1 [facility] nivers 15 mg 1-30 tablet by ity of tablet 00:00: mouth [place] 00 daily. [facility] pregabalin 2020-0 Yes [id number] 150mg Take 1 [facility] (LYRICA) 1-30 capsule by ity o f 150 mg 00:00: mouth 2 [place] capsule 00 (two) Medical times [place] daily. hydroCHLORO 2020-0 Yes [id number] 25mg Take 1 [facility] thiazide 25 1-30 tablet by ity of mg tablet 00:00: mouth [place] 00 daily. [facility] meloxicam 2020-0 Yes [id number] 15mg Take 1 [facility] nivers 15 mg 1-30 tablet by ity of tablet 00:00: mouth [place] 00 daily. [facility] pregabalin 2020-0 Yes [id number] 150mg Take 1 [facility] (LYRICA) 1-30 capsule by ity o f 150 mg 00:00: mouth 2 [place] capsule 00 (two) Medical times [place] daily. hydroCHLORO 2020-0 Yes [id number] 25mg Take 1 [facility] thiazide 25 1-30 tablet by ity of mg tablet 00:00: mouth [place] 00 daily. [facility] meloxicam 2020-0 Yes [id number] 15mg Take 1 [facility] nivers 15 mg 1-30 tablet by ity of tablet 00:00: mouth [place] 00 daily. [facility] pregabalin 2020-0 Yes [id number] 150mg Take 1 [facility] (LYRICA) 1-30 capsule by ity o f 150 mg 00:00: mouth 2 [place] capsule 00 (two) Medical times Branch daily. meloxicam 2020-0 Yes [id number] 15mg Take 1 [facility] nivers 15 mg 1-30 tablet by ity of tablet 00:00: mouth [place] 00 daily. [facility] pregabalin 2020-0 Yes [id number] 150mg Take 1 [facility] (LYRICA) 1-30 capsule by ity o f 150 mg 00:00: mouth 2 [place] capsule 00 (two) Medical times Branch daily. meloxicam 2020-0 Yes [id number] 15mg Take 1 [facility] nivers 15 mg 1-30 tablet by ity of tablet 00:00: mouth [place] 00 daily. [facility] pregabalin 2020-0 Yes [id number] 150mg Take 1 [facility] (LYRICA) 1-30 capsule by ity o f 150 mg 00:00: mouth 2 [place] capsule 00 (two) Medical times Branch daily. meloxicam 2020-0 Yes [id number] 15mg Take 1 [facility] nivers 15 mg 1-30 tablet by ity of tablet 00:00: mouth [place] 00 daily. [facility] pregabalin 2020-0 Yes [id number] 150mg Take 1 [facility] (LYRICA) 1-30 capsule by ity o f 150 mg 00:00: mouth 2 [place] capsule 00 (two) Medical times Branch daily. meloxicam 2020-0 Yes [id number] 15mg Take 1 [facility] nivers 15 mg 1-30 tablet by ity of tablet 00:00: mouth [place] 00 daily. [facility] pregabalin 2020-0 Yes [id number] 150mg Take 1 [facility] (LYRICA) 1-30 capsule by ity o f 150 mg 00:00: mouth 2 [place] capsule 00 (two) Medical times Branch daily. meloxicam 2020-0 Yes [id number] 15mg Take 1 [facility] nivers 15 mg 1-30 tablet by ity of tablet 00:00: mouth [place] 00 daily. [facility] pregabalin 2020-0 Yes [id number] 150mg Take 1 [facility] (LYRICA) 1-30 capsule by ity o f 150 mg 00:00: mouth 2 [place] capsule 00 (two) Medical times Branch daily. meloxicam 2020-0 Yes [id number] 15mg Take 1 [facility] nivers 15 mg 1-30 tablet by ity of tablet 00:00: mouth [place] 00 daily. [facility] pregabalin 2020-0 Yes [id number] 150mg Take 1 [facility] (LYRICA) 1-30 capsule by ity o f 150 mg 00:00: mouth 2 [place] capsule 00 (two) Medical times Branch daily. meloxicam 2020-0 Yes [id number] 15mg Take 1 [facility] nivers 15 mg 1-30 tablet by ity of tablet 00:00: mouth [place] 00 daily. [facility] pregabalin 2020-0 Yes [id number] 150mg Take 1 [facility] (LYRICA) 1-30 capsule by ity o f 150 mg 00:00: mouth 2 [place] capsule 00 (two) Medical times Branch daily. meloxicam 2020-0 Yes [id number] 15mg Take 1 [facility] nivers 15 mg 1-30 tablet by ity of tablet 00:00: mouth [place] 00 daily. [facility] pregabalin 2020-0 Yes [id number] 150mg Take 1 [facility] (LYRICA) 1-30 capsule by ity o f 150 mg 00:00: mouth 2 [place] capsule 00 (two) Medical times Branch daily. meloxicam 2020-0 Yes [id number] 15mg Take 1 [facility] nivers 15 mg 1-30 tablet by ity of tablet 00:00: mouth [place] 00 daily. [facility] pregabalin 2020-0 Yes [id number] 150mg Take 1 [facility] (LYRICA) 1-30 capsule by ity o f 150 mg 00:00: mouth 2 [place] capsule 00 (two) Medical times Branch daily. meloxicam 2020-0 Yes [id number] 15mg Take 1 U nivers 15 mg 1-30 tablet by ity of tablet 00:00: mouth [place] 00 daily. [facility] pregabalin 2020-0 Yes [id number] 150mg Take 1 [facility] (LYRICA) 1-30 capsule by ity o f 150 mg 00:00: mouth 2 [place] capsule 00 (two) Medical times Branch daily. meloxicam 2020-0 Yes [id number] 15mg Take 1 U nivers 15 mg 1-30 tablet by ity of tablet 00:00: mouth [place] 00 daily. [facility] pregabalin 2020-0 Yes [id number] 150mg Take 1 [facility] (LYRICA) 1-30 capsule by ity o f 150 mg 00:00: mouth 2 [place] capsule 00 (two) Medical times Branch daily. meloxicam 2020-0 Yes [id number] 15mg Take 1 U nivers 15 mg 1-30 tablet by ity of tablet 00:00: mouth [place] 00 daily. [facility] pregabalin 2020-0 Yes [id number] 150mg Take 1 [facility] (LYRICA) 1-30 capsule by ity o f 150 mg 00:00: mouth 2 [place] capsule 00 (two) Medical times Branch daily. meloxicam 2020-0 Yes [id number] 15mg Take 1 U nivers 15 mg 1-30 tablet by ity of tablet 00:00: mouth [place] 00 daily. [facility] pregabalin 2020-0 Yes [id number] 150mg Take 1 [facility] (LYRICA) 1-30 capsule by ity o f 150 mg 00:00: mouth 2 [place] capsule 00 (two) Medical times Branch daily. meloxicam 2020-0 Yes [id number] 15mg Take 1 U nivers 15 mg 1-30 tablet by ity of tablet 00:00: mouth [place] 00 daily. [facility] pregabalin 2020-0 Yes [id number] 150mg Take 1 [facility] (LYRICA) 1-30 capsule by ity o f 150 mg 00:00: mouth 2 [place] capsule 00 (two) Medical times Branch daily. meloxicam 2020-0 Yes [id number] 15mg Take 1 [facility] nivers 15 mg 1-30 tablet by ity of tablet 00:00: mouth [place] 00 daily. [facility] pregabalin 2020-0 Yes [id number] 150mg Take 1 [facility] (LYRICA) 1-30 capsule by ity o f 150 mg 00:00: mouth 2 [place] capsule 00 (two) Medical times Branch daily. meloxicam 2020-0 Yes [id number] 15mg Take 1 U nivers 15 mg 1-30 tablet by ity of tablet 00:00: mouth [place] 00 daily. [facility] pregabalin 2020-0 Yes [id number] 150mg Take 1 [facility] (LYRICA) 1-30 capsule by ity o f 150 mg 00:00: mouth 2 [place] capsule 00 (two) Medical times Branch daily. meloxicam 2020-0 Yes [id number] 15mg Take 1 [facility] nivers 15 mg 1-30 tablet by ity of tablet 00:00: mouth [place] 00 daily. Medical Branch pregabalin 2019-0 Yes [id number] 150mg Take 1 [facility] (LYRICA) 1-30 capsule by ity o f 150 mg 00:00: mouth 2 [place] capsule 00 (two) Medical times Branch daily. meloxicam 2020-0 Yes [id number] 15mg Take 1 U nivers 15 mg 1-30 tablet by ity of tablet 00:00: mouth [place] 00 daily. Medical Branch meloxicam 2019-0 Yes [id number] 15mg Take 1 U nivers 15 mg 1-30 tablet by ity of tablet 00:00: mouth [place] 00 daily. [facility] Branch meloxicam 2019-0 Yes [id number] 15mg Take 1 U nivers 15 mg 1-30 tablet by ity of tablet 00:00: mouth [place] 00 daily. [facility] Branch meloxicam 2019-0 Yes [id number] 15mg Take 1 U nivers 15 mg 1-30 tablet by ity of tablet 00:00: mouth [place] 00 daily. [facility] Branch meloxicam 2019-0 Yes [id number] 15mg Take 1 U nivers 15 mg 1-30 tablet by ity of tablet 00:00: mouth [place] 00 daily. [facility] Branch meloxicam 2019-0 Yes [id number] 15mg Take 1 U nivers 15 mg 1-30 tablet by ity of tablet 00:00: mouth [place] 00 daily. Medical Branch meloxicam 2019-0 Yes [id number] 15mg Take 1 U nivers 15 mg 1-30 tablet by ity of tablet 00:00: mouth [place] 00 daily. [facility] Branch meloxicam 2019-0 Yes [id number] 15mg Take 1 U nivers 15 mg 1-30 tablet by ity of tablet 00:00: mouth [place] 00 daily. Medical Branch pregabalin 2019-0 2020- No [id number] 150mg Take 1 [facility] (LYRICA) 1-30 12-21 capsule by ity of 150 mg 00:00: 00:00 mouth 2 [place] capsule 00 :00 (two) Medical times Branch daily. hydroCHLORO 2019-0 2020- No [id number] 25mg Take 1 [facility] thiazide 25 1-30 07-09 tablet by it y of mg tablet 00:00: 00:00 mouth [place] 00 :00 daily. Medical Branch hydroCHLORO 2019-0 2019- No [id number] 25mg Take 1 [facility] thiazide 25 30 -09 tablet by it y of mg tablet 00:00: 00:00 mouth [place] 00 :00 daily. [facility] Branch hydroCHLORO 2019-2019- No [id number] 25mg Take 1 [facility] thiazide 25 30 -09 tablet by it y of mg tablet 00:00: 00:00 mouth [place] 00 :00 daily. [facility] Branch hydroCHLORO 2019-2019- No [id number] 25mg Take 1 [facility] thiazide 25 30 -09 tablet by it y of mg tablet 00:00: 00:00 mouth [place] 00 :00 daily. [facility] Branch metoprolol 2019-2019- No [id number] 25mg Take 1 U nivers succinate 30 02-24 tablet by ity of XL 25 mg 24 00:00: 00:00 [place] hr tablet 00 :00 daily. [facility] Branch metoprolol 2019- No [id number] 25mg Take 1 U nivers succinate 30 02-24 tablet by ity of XL 25 mg 24 00:00: 00:00 [place] hr tablet 00 :00 daily. [facility] Branch metoprolol 2019- No [id number] 25mg Take 1 U nivers succinate 30 02-24 tablet by ity of XL 25 mg 24 00:00: 00:00 mouth [place] hr tablet 00 :00 daily. Medical Branch aripiprazol 2018-08 Yes 5mg Take 5 mg U nivers e (ABILIFY 2-17 by mouth 2 ity of ORAL) 15:02: (two) [place] 33 times Medical daily. Branch aripiprazol 2018-08 Yes 5mg Take 5 mg U nivers e (ABILIFY 2-17 by mouth 2 ity of ORAL) 15:02: (two) [place] 33 times Medical daily. Branch aripiprazol 2018-08 Yes 5mg Take 5 mg U nivers e (ABILIFY 2-17 by mouth 2 ity of ORAL) 15:02: (two) [place] 33 times Medical daily. Branch aripiprazol 2018-08 Yes 5mg Take 5 mg U nivers e (ABILIFY 2-17 by mouth 2 ity of ORAL) 15:02: (two) [place] 33 times Medical daily. Branch VITAMIN B 2018-08 Yes Take by Unive rs COMPLEX 0-31 mouth. ity of ORAL 17:11: [address] Branch traZODONE 2018-08 Yes 100mg Take 100 [facility] vers 100 mg 0-31 mg by ity of tablet 17:11: mouth at [place] [address] bedtime. Medical Branch VITAMIN B 2018-08 Yes Take by Unive rs COMPLEX 0-31 mouth. ity of ORAL 17:11: [address] Branch traZODONE 2018-08 Yes 100mg Take 100 Uni vers 100 mg 0-31 mg by ity of tablet 17:11: mouth at [place] [address] bedtime. Medical Branch VITAMIN B 2018-08 Yes Take by Unive rs COMPLEX 0-31 mouth. ity of ORAL 17:11: [address] Branch traZODONE 2018-08 Yes 100mg Take 100 Uni vers 100 mg 0-31 mg by ity of tablet 17:11: mouth at [place] [address] bedtime. Medical Branch VITAMIN B 2018-08 Yes Take by Unive rs COMPLEX 0-31 mouth. ity of ORAL 17:11: [address] Branch traZODONE 2018-08 Yes 100mg Take 100 [facility] vers 100 mg 0-31 mg by ity of tablet 17:11: mouth at [place] [address] bedtime. Medical Branch traZODONE Yes 100mg Take 100 [facility] vers 100 mg 8-29 mg by ity of tablet 19:24: mouth at [place] [address] bedtime. Medical Branch traZODONE Yes 100mg Take 100 [facility] vers 100 mg 8-29 mg by ity of tablet 19:24: mouth at [place] [address] bedtime. Medical Branch traZODONE Yes 100mg Take 100 [facility] vers 100 mg 8-29 mg by ity of tablet 19:24: mouth at [place] [address] bedtime. Medical Branch traZODONE Yes 100mg Take 100 [facility] vers 100 mg 8-29 mg by ity of tablet 19:24: mouth at [place] [address] bedtime. Medical Branch traZODONE Yes 100mg Take 100 [facility] vers 100 mg 8-29 mg by ity of tablet 19:24: mouth at [place] [address] bedtime. Medical Branch traZODONE Yes 100mg Take 100 [facility] vers 100 mg 8-29 mg by ity of tablet 19:24: mouth at [place] 39 bedtime. Medical Branch benztropine Yes 1mg Take 1 mg [...] tablet 21 times Medical daily. Branch benztropine 2019-0 Yes 1mg Take 1 mg U nivers 1 mg tablet 8-29 by mouth ity of 14:39: daily. [place] [facility] ARIPiprazol Yes 10mg Take 10 [...] 8-29 by mouth ity of 14:39: daily. [place] [facility] ARIPiprazol Yes 10mg Take 10 mg Univers [...] 8-29 by mouth ity of 14:39: daily. [address] ARIPiprazol Yes 10mg Take 10 mg [...] 21 times Medical daily. Branch metoprolol Yes [id number] 25mg Take 1 Un nneka succinate 8-29 tablet by ity o f XL 25 mg 24 00:00: mouth [place] hr tablet 00 daily. Medical Branch hydroCHLORO Yes [id number] 25mg Take 1 [facility] thiazide 25 8-29 tablet by ity of mg tablet 00:00: mouth [place] 00 daily. Medical Branch meloxicam Yes [id number] 15mg Take 1 U nivers 15 mg 8-29 tablet by ity of tablet 00:00: mouth [place] 00 daily. Medical Branch metoprolol Yes [id number] 25mg Take 1 Un nneka succinate 8-29 tablet by ity o f XL 25 mg 24 00:00: mouth [place] hr tablet 00 daily. Medical Branch hydroCHLORO Yes [id number] 25mg Take 1 [facility] thiazide 25 8-29 tablet by ity of mg tablet 00:00: mouth [place] 00 daily. Medical Branch meloxicam Yes [id number] 15mg Take 1 U nivers 15 mg 8-29 tablet by ity of tablet 00:00: mouth [place] 00 daily. Medical Branch metoprolol Yes [id number] 25mg Take 1 Un nneka succinate 8-29 tablet by ity o f XL 25 mg 24 00:00: mouth [place] hr tablet 00 daily. Medical Branch hydroCHLORO Yes [id number] 25mg Take 1 [facility] thiazide 25 8-29 tablet by ity of mg tablet 00:00: mouth [place] 00 daily. Medical Branch meloxicam Yes [id number] 15mg Take 1 U nivers 15 mg 8-29 tablet by ity of tablet 00:00: mouth [place] 00 daily. Medical Branch metoprolol Yes [id number] 25mg Take 1 Un nneka succinate 8-29 tablet by ity o f XL 25 mg 24 00:00: mouth [place] hr tablet 00 daily. Medical Branch hydroCHLORO Yes [id number] 25mg Take 1 [facility] thiazide 25 8-29 tablet by ity of mg tablet 00:00: mouth [place] 00 daily. Medical Branch meloxicam Yes [id number] 15mg Take 1 U nivers 15 mg 8-29 tablet by ity of tablet 00:00: mouth [place] 00 daily. Medical Branch metoprolol Yes [id number] 25mg Take 1 Un nneka succinate 8-29 tablet by ity o f XL 25 mg 24 00:00: mouth [place] hr tablet 00 daily. Medical Branch hydroCHLORO Yes [id number] 25mg Take 1 [facility] thiazide 25 8-29 tablet by ity of mg tablet 00:00: mouth [place] 00 daily. Medical Branch meloxicam Yes [id number] 15mg Take 1 U nivers 15 mg 8-29 tablet by ity of tablet 00:00: mouth [place] 00 daily. Medical Branch metoprolol Yes [id number] 25mg Take 1 Un nneka succinate 8-29 tablet by ity o f XL 25 mg 24 00:00: mouth [place] hr tablet 00 daily. Medical Branch hydroCHLORO Yes [id number] 25mg Take 1 [facility] thiazide 25 8-29 tablet by ity of mg tablet 00:00: mouth [place] 00 daily. Medical Branch meloxicam Yes [id number] 15mg Take 1 U nivers 15 mg 8-29 tablet by ity of tablet 00:00: mouth [place] 00 daily. Medical Branch metoprolol Yes [id number] 25mg Take 1 Un nneka succinate 8-29 tablet by ity o f XL 25 mg 24 00:00: mouth [place] hr tablet 00 daily. Medical Branch hydroCHLORO Yes [id number] 25mg Take 1 [facility] thiazide 25 8-29 tablet by ity of mg tablet 00:00: mouth [place] 00 daily. Medical Branch meloxicam Yes [id number] 15mg Take 1 U nivers 15 mg 8-29 tablet by ity of tablet 00:00: mouth [place] 00 daily. Medical Branch metoprolol 2020- No [id number] 25mg Take 1 U nivers succinate 8-29 01-30 tablet by ity of XL 25 mg 24 00:00: 00:00 mouth [place] hr tablet 00 :00 daily. [facility] Branch hydroCHLORO 2020- No [id number] 25mg Take 1 [facility] thiazide 25 04-28 tablet by it y of mg tablet 00:00: 00:00 mouth [place] 00 :00 daily. [facility] meloxicam 2020- No [id number] 15mg Take 1 [facility] 15 mg 04-28 tablet by ity of tablet 00:00: 00:00 mouth [place] 00 :00 daily. [facility] Branch metoprolol 2020- No [id number] 25mg Take 1 U nivers succinate 04-28 tablet by ity of XL 25 mg 24 00:00: 00:00 [place] hr tablet 00 :00 daily. [facility] Branch hydroCHLORO 2019- No [id number] 25mg Take 1 [facility] thiazide 25 04-28 tablet by it y of mg tablet 00:00: 00:00 mouth [place] 00 :00 daily. [facility] meloxicam 2019- No [id number] 15mg Take 1 [facility] 15 mg 04-28 tablet by ity of tablet 00:00: 00:00 mouth [place] 00 :00 daily. [facility] Dose 2019-0 No Unknown 7-30 00:00: 00 Dose 2019-0 No Unknown 7-30 00:00: 00 Dose 2019-0 No Unknown 7-30 00:00: 00 Dose 2019-0 No Unknown 7-30 00:00: 00 Dose 2019-0 No Unknown 7-30 00:00: 00 Dose 2019-0 No Unknown 7-30 00:00: 00 METOPROLOL 2018- 2019- No [id number] TAKE 1 U nivers SUCCINATE 7-06 07- TABLET BY ity of XL 25 mg 24 00:00: 00:00 MOUTH [place] hr tablet 00 :00 EVERY DAY Medic [facility] METOPROLOL 2019- No [id number] TAKE 1 U nivers SUCCINATE 7-10 -29 TABLET BY ity of XL 25 mg 24 00:00: 00:00 MOUTH [place] hr tablet 00 :00 EVERY DAY Medic [facility] hydroCHLORO 2019- No [id number] 25mg Take 1 [facility] thiazide 25 01-27 tablet by it y of mg tablet 00:00: 00:00 mouth [place] 00 :00 daily. [facility] meloxicam 2019- No [id number] 7.5mg Take 1 [facility] (MOBIC) 7.5 5-30 -29 tablet by it y of mg tablet 00:00: 00:00 mouth [place] 00 :00 daily. Medical Branch hydroCHLORO 2019- No [id number] 25mg Take 1 [facility] thiazide 25 5-30 08-29 tablet by it y of mg tablet 00:00: 00:00 mouth [place] 00 :00 daily. Medical Branch meloxicam 2019- No [id number] 7.5mg Take 1 [facility] (MOBIC) 7.5 -30 -29 tablet by it y of mg tablet 00:00: 00:00 mouth [place] 00 :00 daily. Medical Branch DULOXETINE 2019-0 Yes 60mg Take 60 mg U nivers HCL 4-23 by mouth 3 ity of (CYMBALTA 20:00: (three) [place] ORAL) 25 times Medical daily. Branch OLANZapine 2019-0 Yes 20mg Take 20 mg U nivers 20 mg 4-23 by mouth ity of tablet 20:00: at [place] 25 bedtime. Medical Branch aripiprazol 2019-0 Yes [...] by mouth ity of tablet 20:00: at [place] 25 bedtime. Medical Branch DULOXETINE 2019-0 Yes 60mg Take 60 mg U nivers HCL 4-23 by mouth 3 ity of (CYMBALTA 20:00: (three) [place] ORAL) 25 times Medical daily. Branch OLANZapine 2019-0 Yes 20mg Take 20 mg U nivers 20 mg 4-23 by mouth ity of tablet 20:00: at [place] 25 bedtime. Medical Branch DULOXETINE 2019-0 Yes 60mg Take 60 mg U nivers HCL 4-23 by mouth 3 ity of (CYMBALTA 20:00: (three) [place] ORAL) 25 times Medical daily. Branch OLANZapine 2019-0 Yes 20mg Take 20 mg U nivers 20 mg 4-23 by mouth ity of tablet 20:00: at [place] 25 bedtime. Medical Branch DULOXETINE 2019-0 Yes 60mg Take 60 mg U nivers HCL 4-23 by mouth 3 ity of (CYMBALTA 20:00: (three) [place] ORAL) 25 times Medical daily. Branch OLANZapine 2019-0 Yes 20mg Take 20 mg U nivers 20 mg 4-23 by mouth ity of tablet 20:00: at [place] 25 bedtime. Medical Branch DULOXETINE 2019-0 Yes 60mg Take 60 mg U nivers HCL 4-23 by mouth 3 ity of (CYMBALTA 20:00: (three) [place] ORAL) 25 times Medical daily. Branch OLANZapine 2019-0 Yes 20mg Take 20 mg U nivers 20 mg 4-23 by mouth ity of tablet 20:00: at [place] 25 bedtime. Medical Branch aripiprazol 2019-0 Yes [...] by mouth ity of tablet 20:00: at [place] 25 bedtime. Medical Branch aripiprazol 2019-0 Yes [...] by mouth ity of tablet 20:00: at [place] 25 bedtime. Medical Branch aripiprazol 2019-0 Yes 5mg Take 5 mg U nivers e (ABILIFY 4-23 by mouth 2 ity of ORAL) 20:00: (two) [place] 25 times Medical daily. Branch DULOXETINE 2019-0 Yes 60mg Take 60 mg U nivers HCL 4-23 by mouth 3 ity of (CYMBALTA 20:00: (three) [place] ORAL) 25 times Medical daily. Branch OLANZapine 2018-0 Yes 20mg Take 20 mg U nivers 20 mg 4-23 by mouth ity of tablet 20:00: at [place] 25 bedtime. Medical Branch aripiprazol 2018-0 Yes 5mg Take 5 mg U nivers e (ABILIFY 4-23 by mouth 2 ity of ORAL) 20:00: (two) [place] 25 times Medical daily. Branch DULOXETINE 2018- Yes 60mg Take 60 mg U nivers HCL 4-23 by mouth 3 ity of (CYMBALTA 20:00: (three) [place] ORAL) 25 times Medical daily. Branch OLANZapine 2018- Yes 20mg Take 20 mg U nivers 20 mg 4-23 by mouth ity of tablet 20:00: at [place] 25 bedtime. Medical Branch aripiprazol 2018- Yes 5mg Take 5 mg U nivers e (ABILIFY 4-23 by mouth 2 ity of ORAL) 20:00: (two) [place] 25 times Medical daily. Branch VITAMIN B Yes Take by Unive rs COMPLEX 3-28 mouth. ity of ORAL 16:11: [address] VITAMIN B Yes Take by Unive rs COMPLEX 3-28 mouth. ity of ORAL 16:11: [address] VITAMIN B Yes Take by Unive rs COMPLEX 3-28 mouth. ity of ORAL 16:11: [address] VITAMIN B Yes Take by Unive rs COMPLEX 3-28 mouth. ity of ORAL 16:11: [address] VITAMIN B Yes Take by Unive rs COMPLEX 3-28 mouth. ity of ORAL 16:11: [address] VITAMIN B Yes Take by Unive rs COMPLEX 3-28 mouth. ity of ORAL 16:11: [address] amlodipine 2018-0 No 1mg 5 mg tablet 2-19 00:00: 00 amlodipine 2018-0 No 1mg 5 mg tablet 2-19 00:00: 00 amlodipine 2018-0 No 1mg 5 mg tablet 2-19 00:00: 00 amlodipine 2018-1 No 1mg 10 mg 2-11 tablet 00:00: 00 amlodipine 2018-1 No 1mg 10 mg 2-11 tablet 00:00: 00 amlodipine 2018-1 No 1mg 10 mg 2-11 tablet 00:00: 00 amlodipine 2018-1 No 1mg 10 mg 0-15 tablet 00:00: 00 lisinopril 2018-1 No 1mg 10 0-15 mg-hydrochl 00:00: orothiazide 00 12.5 mg tablet amlodipine 2018-1 No 1mg 10 mg 0-15 tablet 00:00: 00 lisinopril 2018-1 No 1mg 10 0-15 mg-hydrochl 00:00: orothiazide 00 12.5 mg tablet amlodipine 2018-1 No 1mg 10 mg 0-15 tablet 00:00: 00 lisinopril 2018-1 No 1mg 10 0-15 mg-hydrochl 00:00: orothiazide 00 12.5 mg tablet amlodipine 2018-0 No 1mg 10 mg 9-20 tablet 00:00: 00 amlodipine 2018-0 No 1mg 10 mg 9-20 tablet 00:00: 00 amlodipine 2018-0 No 1mg 10 mg 9-20 tablet 00:00: 00 Zyprexa 15 2018-0 No 1mg mg tablet 05-19 00:00: 00 Dose 2018-0 No Unknown 05-19 00:00: 00 Dose 2018-0 No Unknown 05-19 00:00: 00 Dose 2018-0 No Unknown - 00:00: 00 Zyprexa 15 2018-0 No 1mg mg tablet 05-19 00:00: 00 Dose 2018-0 No Unknown 05-19 00:00: 00 Dose 2018-0 No Unknown - 00:00: 00 Dose 2018-0 No Unknown - 00:00: 00 Zyprexa 15 2018-0 No 1mg mg tablet 05-19 00:00: 00 Dose 2018-0 No Unknown 05-19 00:00: 00 Dose 2018-0 No Unknown 05-19 00:00: 00 Dose 2018-0 No Unknown 05-19 00:00: 00 amlodipine 2018-0 No 1mg 10 mg 9-05 tablet 00:00: 00 amlodipine 2018-0 No 1mg 10 mg 9-05 tablet 00:00: 00 amlodipine 2018-0 No 1mg 10 mg 9-05 tablet 00:00: 00 amlodipine 2018-0 No 1mg 10 mg 8-15 tablet 00:00: 00 amlodipine 2018-0 No 1mg 10 mg 8-15 tablet 00:00: 00 amlodipine 2018-0 No 1mg 10 mg 8-15 tablet 00:00: 00 cyclobenzap 2018-0 Yes [id number] Bid prn [facility] rine 10 mg 8-02 ity of tablet 00:00: [place] 00 Medical Branch cyclobenzap 2018-0 Yes [id number] Bid prn [facility] rine 10 mg 8-02 ity of tablet 00:00: [place] 00 Medical Branch cyclobenzap 2018-0 Yes [id number] Bid prn [facility] rine 10 mg 8-02 ity of tablet 00:00: [place] 00 Medical Branch cyclobenzap 2018-0 Yes [id number] Bid prn [facility] rine 10 mg 8-02 ity of tablet 00:00: [place] 00 Medical Branch cyclobenzap 2018-0 Yes [id number] Bid prn [facility] rine 10 mg 8-02 ity of tablet 00:00: [place] 00 Medical Branch cyclobenzap 2018-0 Yes [id number] Bid prn [facility] rine 10 mg 8-02 ity of tablet 00:00: [place] 00 Medical Branch cyclobenzap 2018-0 Yes [id number] Bid prn [facility] rine 10 mg 8-02 ity of tablet 00:00: [place] 00 Medical Branch cyclobenzap 2018-0 Yes [id number] Bid prn [facility] rine 10 mg 8-02 ity of tablet 00:00: [place] 00 Medical Branch cyclobenzap 2018-0 Yes [id number] Bid prn [facility] rine 10 mg 8-02 ity of tablet 00:00: [place] 00 Medical Branch cyclobenzap 2018-0 Yes [id number] Bid prn [facility] rine 10 mg 8-02 ity of tablet 00:00: [place] 00 Medical Branch cyclobenzap 2018-0 2020- No [id number] Bid prn [facility] rine 10 mg 8-02 02-24 ity of tablet 00:00: 00:00 [place] 00 :00 Medical Branch cyclobenzap 2018-0 2020- No [id number] Bid prn [facility] rine 10 mg 8-02 02-24 ity of tablet 00:00: 00:00 [place] 00 :00 Medical Branch cyclobenzap 2018-0 2020- No [id number] Bid prn [facility] rine 10 mg 8-02 02-24 ity of tablet 00:00: 00:00 [place] 00 :00 Medical Branch amlodipine 2018-0 No 1mg 5 mg tablet 03-22 00:00: 00 amlodipine 2018-0 No 1mg 5 mg tablet 03-22 00:00: 00 amlodipine 2018-0 No 1mg 5 mg tablet 03-22 00:00: 00 fluconazole 2018-0 No 1mg 150 mg 6-14 tablet 00:00: 00 fluconazole 2018-0 No 1mg 150 mg 6-14 tablet 00:00: 00 fluconazole 2018-0 No 1mg 150 mg 6-14 tablet 00:00: 00 hydrochloro 2016-0 No 1mg thiazide 5-26 12.5 mg 00:00: tablet 00 hydrochloro 2016-0 No 1mg thiazide 5-26 12.5 mg 00:00: tablet 00 hydrochloro 2016-0 No 1mg thiazide 5-26 12.5 mg 00:00: tablet 00 furosemide 2016-0 No 1mg 40 mg 5-19 tablet 00:00: 00 trazodone 2016-0 No 1mg 50 mg 5-19 tablet 00:00: 00 Cymbalta 20 2016-0 No 1mg mg 5-19 capsule,del 00:00: ayed 00 release gabapentin 2016-0 No 1mg 300 mg 5-19 capsule 00:00: 00 furosemide 2016-0 No 1mg 40 mg 5-19 tablet 00:00: 00 trazodone 2016-0 No 1mg 50 mg 5-19 tablet 00:00: 00 Cymbalta 20 2016-0 No 1mg mg 5-19 capsule,del 00:00: [place] 00 release gabapentin 2016-0 No 1mg 300 mg 5-19 capsule 00:00: 00 furosemide 2016-0 No 1mg 40 mg 5-19 tablet 00:00: 00 trazodone 2016-0 No 1mg 50 mg 5-19 tablet 00:00: 00 Cymbalta 20 2016-0 No 1mg mg 5-19 capsule,del 00:00: ayed 00 release gabapentin 2016-0 No 1mg 300 mg 5-19 capsule 00:00: 00 DULoxetine 2015-0 Yes Jelena HCl 30 MG 3-16 Seybold oral 00:00: - Capsule 00 Externa Delayed l Release Sprinkle hydrOXYzine 2015-0 Yes Jelena HCl 25 MG 3-16 Seybold oral Tablet 00:00: - 00 Externa l DULoxetine 2015-0 Yes [id number] Emanuel sey HCl 30 MG 3-16 Seybold oral 00:00: - Capsule 00 Externa Delayed l Release Sprinkle hydrOXYzine 2015-0 Yes [id number] Ke lsey HCl 25 MG 3-16 Seybold oral Tablet 00:00: - 00 Externa l Immunizations Ordered Immunization Filled Immunization Date Status Commen ts Source Name Name COVID-19 BIVALENT 2022-08-28 Completed Jelena Seybold BOOSTER VACCINE 00:00:00 - Externa l MODERNA COVID-19 BIVALENT 2022-08-28 Completed Jelena Seybold BOOSTER VACCINE 00:00:00 - Externa l MODERNA Moderna COVID-19 2022-08-28 Completed Vaccine Bivalent 00:00:00 Booster for ages 6 + years (18+, 12-17, 6-11) Moderna COVID-19 2022-08-28 Completed Vaccine Bivalent 00:00:00 Booster for ages 6 + years (18+, 12-17, 6-11) Moderna COVID-19 2022-08-28 Completed Vaccine Bivalent 00:00:00 Booster for ages 6 + years (18+, 12-17, 6-11) Covid-19 Vaccine 2021-10-19 Completed Jelena newman Moderna (Spikevax), 00:00:00 - Ext ernal Mrna-lnp, Bradley Protein, Pf Covid-19 Vaccine 2021-10-19 Completed Jelena newman Moderna (Spikevax), 00:00:00 - Ext ernal Mrna-lnp, Bradley Protein, Pf Moderna COVID-19 2021-10-19 Completed Vaccine 00:00:00 Moderna COVID-19 2021-10-19 Completed Vaccine 00:00:00 Moderna COVID-19 2021-10-19 Completed Vaccine 00:00:00 Covid-19 Vaccine 2021-09-07 Completed Jelena newman Moderna (Spikevax), 00:00:00 - Ext ernal Mrna-lnp, Bradley Protein, Pf Covid-19 Vaccine 2021-09-07 Completed Jelena newman Moderna (Spikevax), 00:00:00 - Ext ernal Mrna-lnp, Bradley Protein, Pf Moderna COVID-19 2021-09-07 Completed Vaccine 00:00:00 Moderna COVID-19 2021-09-07 Completed Vaccine 00:00:00 Moderna COVID-19 2021-09-07 Completed Vaccine 00:00:00 Pneumococcal Vaccine, 2019-04-29 Completed Emanuel sey Seybold Polysaccharide 00:00:00 - External Tdap- (Boostrix, 2019-04-29 Completed Jelena S eybold Adacel) 00:00:00 - External Pneumococcal Vaccine, 2019-04-29 Completed Emanuel sey Seybold Polysaccharide 00:00:00 - External Tdap- (Boostrix, 2019-04-29 Completed Jelena S eybold Adacel) 00:00:00 - External DTaP Unspecified 2009-04-17 Completed Jelena S eybold 00:00:00 - External Hepatitis A 2009-04-17 Completed Jelena Seybol d 00:00:00 - External HPV 4 (Human 2009-04-17 Completed Jelenayamilet Eatono ld Papillomavirus) 00:00:00 - Externa l Pneumococcal Vaccine, 2009-04-17 Completed Emanuel sey Seybold Conjugate 7 00:00:00 - External DTaP Unspecified 2009-04-17 Completed Jelena S eybold 00:00:00 - External Hepatitis A 2009-04-17 Completed Jelena Malcolmybol d 00:00:00 - External HPV 4 (Human 2009-04-17 Completed Jelena Seybo ld Papillomavirus) 00:00:00 - Externa l Pneumococcal Vaccine, 2009-04-17 Completed Emanuel sey Seybold Conjugate 7 00:00:00 - External HPV 4 (Human 2008-04-14 Completed Jelenayamilet Eatono ld Papillomavirus) 00:00:00 - Externa l HPV 4 (Human 2008-04-14 Completed Jelena Seybo ld Papillomavirus) 00:00:00 - Externa l Hepatitis A 2008-02-18 Completed Jelena Seybol d 00:00:00 - External HPV 4 (Human 2008-02-18 Completed Jelena Seybo ld Papillomavirus) 00:00:00 - Externa l Meningococcal 2008-02-18 Completed Jelena Eaton old Mcv4,unspecified 00:00:00 - Specialty Trimmer 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 Hepatitis A 2008-02-18 Completed Jelena Seybol d 00:00:00 - External HPV 4 (Human 2008-02-18 Completed Jelena Ashley ld Papillomavirus) 00:00:00 - Externa l Meningococcal 2008-02-18 Completed Jelena rod Mcv4,unspecified 00:00:00 - Specialty Trimmer 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 Td (adult), 2 Lf 2006-05-25 Completed Jelena newman tetanus toxoid, 00:00:00 - Externa l preservative free, adsorbed Td (adult), 2 Lf 2006-05-25 Completed Jelena newman tetanus toxoid, 00:00:00 - Externa l preservative free, adsorbed Varicella Vaccine 2002-04-21 Completed Jelena Ibrahim 00:00:00 - External Varicella Vaccine 2002-04-21 Completed Jelena Ibrahim 00:00:00 - External HIB- Haemophilus 1997-05-31 Completed Jelena shahboconstance Influenzae Type B 00:00:00 - Exter nal HIB- Haemophilus 1997-05-31 Completed Jelena Umaña eybold Influenzae Type B 00:00:00 - Exter nal DTP- 1997-04-05 Completed Jelena Ibrahim Diphtheria,Tetanus,Pe 00:00:00 - E xternal rtussis OPV- Oral Polio 1997-04-05 Completed Jelena allenold Vaccine 00:00:00 - External DTP- 1997-04-05 Completed Jelena Ibrahim Diphtheria,Tetanus,Pe 00:00:00 - E xternal rtussis OPV- Oral Polio 1997-04-05 Completed Jelena Malcolm ybold Vaccine 00:00:00 - External DTP- 1996-08-05 Completed Jelena Ibrahim Diphtheria,Tetanus,Pe 00:00:00 - E xternal rtussis HIB- Haemophilus 1996-08-05 Completed Jelena Umaña eybold Influenzae Type B 00:00:00 - Exter nal DTP- 1996-08-05 Completed Jelena Ibrahim Diphtheria,Tetanus,Pe 00:00:00 - E xternal rtussis HIB- Haemophilus 1996-08-05 Completed Jelnea Umaña eybold Influenzae Type B 00:00:00 - Exter nal MMR- Measles, Mumps, 1996-05-30 Completed Ashlie Ibrahim Rubella 00:00:00 - External MMR- Measles, Mumps, 1996-05-30 Completed Ashlie ey Seybold Rubella 00:00:00 - External HIB- Haemophilus 1995-09-25 Completed Jelena Umaña eybold Influenzae Type B 00:00:00 - Exter nal HIB- Haemophilus 1995-09-25 Completed Jelena Umaña eybold Influenzae Type B 00:00:00 - Exter nal OPV- Oral Polio 1994-08-05 Completed Jelena Se ybold Vaccine 00:00:00 - External OPV- Oral Polio 1994-08-05 Completed Jelena Malcolm ybold Vaccine 00:00:00 - External MMR- Measles, Mumps, 1994-05-30 Completed Ashlie shah Seybold Rubella 00:00:00 - External MMR- Measles, Mumps, 1994-05-30 Completed Ashlie shah Seybold Rubella 00:00:00 - External Hepatitis B, 1993 Completed Jelena Ashley ld Unspecified 00:00:00 - External Hepatitis B, 1993 Completed Jelena Ashley ld Unspecified 00:00:00 - External DTP- 1993 Completed Jelena Ibrahim Diphtheria,Tetanus,Pe 00:00:00 - E xternal rtussis DTP- 1993 Completed Jelena Ibrahim Diphtheria,Tetanus,Pe 00:00:00 - E xternal rtussis DTP- 1993 Completed Jelena Ibrahim Diphtheria,Tetanus,Pe 00:00:00 - E xternal rtussis OPV- Oral Polio 1993 Completed Jelena Malcolm ybold Vaccine 00:00:00 - External DTP- 1993 Completed Jelena Ibrahim Diphtheria,Tetanus,Pe 00:00:00 - E xternal rtussis OPV- Oral Polio 1993 Completed Jelena Malcolm ybold Vaccine 00:00:00 - External DTP- 1993 Completed Jelena Ibrahim Diphtheria,Tetanus,Pe 00:00:00 - E xternal rtussis Hepatitis B, 1993 Completed Jelena Ashley ld Unspecified 00:00:00 - External OPV- Oral Polio 1993 Completed Jelena Malcolm ybold Vaccine 00:00:00 - External DTP- 1993 Completed Jelena Ibrahim Diphtheria,Tetanus,Pe 00:00:00 - E xternal rtussis Hepatitis B, 1993 Completed Jelena Ashley ld Unspecified 00:00:00 - External OPV- Oral Polio 1993 Completed Jelena Malcolm ybold Vaccine 00:00:00 - External HIB- Haemophilus 1993 Completed Jelena Umaña eybold Influenzae Type B 00:00:00 - Exter nal HIB- Haemophilus 1993 Completed Jelena S eybold Influenzae Type B 00:00:00 - Exter nal Hepatitis B, 1993 Completed Jelena Ashley ld Unspecified 00:00:00 - External Hepatitis B, 1993 Completed Jelena Ashley ld Unspecified 00:00:00 - External Vital Signs Vital Name Observation Time Observation Value Comments Source Systolic blood 2022-09-24 16:23:00 142 mm[Hg] Jelena Seybold - pressure External Diastolic blood 2022-09-24 16:23:00 94 mm[Hg] Beth booth Seybold - pressure External Heart rate 2022-09-24 16:23:00 106 /min Jelena S eybold - External Body temperature 2022-09-24 16:23:00 36.67 Mera Ashlie ey Seybold - External Respiratory rate 2022-09-24 16:23:00 16 /min Ashlie ey Seybold - External Body height 2022-09-24 16:23:00 160 cm Jelena S eybold - External Body weight 2022-09-24 16:23:00 128.368 kg Jelena S eybold - External BMI 2022-09-24 16:23:00 50.13 kg/m2 Jelena S eybold - External Body temperature 2022-09-09 14:45:00 36.78 Mera Ashlie ey Seybold - External Respiratory rate 2022-09-09 14:45:00 14 /min Ashlie ey Seybold - External Body height 2022-09-09 14:45:00 160 cm Jelena S eybold - External Body weight 2022-09-09 14:45:00 128.822 kg Jelena S eybold - External BMI 2022-09-09 14:45:00 50.31 kg/m2 Jelena S eybold - External Oxygen saturation in 2022-09-09 14:45:00 99 /min Jelena Umamarcel - Arterial blood by External Pulse oximetry Systolic blood 2022-09-09 14:45:00 142 mm[Hg] Jelena Umamarcel - pressure External Diastolic blood 2022-09-09 14:45:00 86 mm[Hg] Beth Eatonmarcel - pressure External Heart rate 2022-09-09 14:45:00 84 /min Jelenayamilet shahbold - External Systolic blood 2020-09-07 15:09:00 126 mm[Hg] Univer [facility] of pressure [facility] Diastolic blood 2020-09-07 15:09:00 88 mm[Hg] Unive rsity of pressure [facility] Heart rate 2020-09-07 15:09:00 76 /min [facility] Body height 2020-09-07 15:09:00 160 cm [facility] Body weight 2020-09-07 15:09:00 114.306 kg [facility] BMI 2020-09-07 15:09:00 44.64 kg/m2 [facility] Systolic blood 2020-09-07 15:09:00 126 mm[Hg] Univer sity of pressure [facility] Diastolic blood 2020-09-07 15:09:00 88 mm[Hg] Unive rsity of pressure [facility] Heart rate 2020-09-07 15:09:00 76 /min [facility] Body height 2020-09-07 15:09:00 160 cm [facility] Body weight 2020-09-07 15:09:00 114.306 kg [facility] BMI 2020-09-07 15:09:00 44.64 kg/m2 [facility] Respiratory rate 2020-08-02 16:44:00 20 /min [facility] Body height 2020-08-02 16:44:00 160 cm [facility] Body weight 2020-08-02 16:44:00 114.352 kg [facility] BMI 2020-08-02 16:44:00 44.66 kg/m2 [facility] Systolic blood 2020-08-02 16:44:00 113 mm[Hg] Univer sity of pressure [facility] Diastolic blood 2020-08-02 16:44:00 66 mm[Hg] Unive rsity of pressure [facility] Heart rate 2020-08-02 16:44:00 76 /min [facility] Body temperature 2020-08-02 16:44:00 36 Mera [facility] Systolic blood 2020-05-17 16:06:00 125 mm[Hg] Univer sity of pressure [facility] Diastolic blood 2020-05-17 16:06:00 76 mm[Hg] Unive rsity of pressure [facility] Heart rate 2020-05-17 16:06:00 93 /min [facility] Body temperature 2020-05-17 16:06:00 36.44 Mera [facility] Respiratory rate 2020-05-17 16:06:00 18 /min [facility] Body height 2020-05-17 16:06:00 160 cm [facility] Body weight 2020-05-17 16:06:00 105.688 kg [facility] BMI 2020-05-17 16:06:00 41.27 kg/m2 [facility] Systolic blood 2020-03-08 15:04:00 108 mm[Hg] Univer sity of pressure [facility] Diastolic blood 2020-03-08 15:04:00 69 mm[Hg] Unive rsity of pressure [facility] Heart rate 2020-03-08 15:04:00 74 /min [facility] Body temperature 2020-03-08 15:04:00 36.61 Mera [facility] Respiratory rate 2020-03-08 15:04:00 20 /min [facility] Body height 2020-03-08 15:04:00 160 cm [facility] Body weight 2020-03-08 15:04:00 112.583 kg [facility] BMI 2020-03-08 15:04:00 43.97 kg/m2 [facility] Systolic blood 2019-10-25 14:56:00 128 mm[Hg] Univer sity of pressure [facility] Diastolic blood 2019-10-25 14:56:00 92 mm[Hg] Unive rsity of pressure [facility] Heart rate 2019-10-25 14:56:00 72 /min [facility] Body temperature 2019-10-25 14:56:00 36.67 Mera [facility] Body height 2019-10-25 14:56:00 160 cm [facility] Body weight 2019-10-25 14:56:00 110.904 kg [facility] BMI 2019-10-25 14:56:00 43.31 kg/m2 [facility] Oxygen saturation in 2019-10-25 14:56:00 99 /min [facility] Arterial blood by [place] [employer] nereida Pulse oximetry Branch Systolic blood 2019-10-24 17:13:00 120 mm[Hg] Univer sity of pressure [facility] Diastolic blood 2019-10-24 17:13:00 81 mm[Hg] Unive rsity of pressure [facility] Heart rate 2019-10-24 17:13:00 75 /min [facility] Respiratory rate 2019-10-24 17:13:00 19 /min [facility] Body height 2019-10-24 17:13:00 160 cm [facility] Body weight 2019-10-24 17:13:00 110.133 kg [facility] BMI 2019-10-24 17:13:00 43.01 kg/m2 [facility] Oxygen saturation in 2019-10-24 17:13:00 99 /min [facility] Arterial blood by [place] [employer] nereida Pulse oximetry Branch Systolic blood 2019-09-29 16:38:00 93 mm[Hg] Univer sity of pressure [facility] Diastolic blood 2019-09-29 16:38:00 64 mm[Hg] Unive rsity of pressure [facility] Heart rate 2019-09-29 16:38:00 77 /min [facility] Body temperature 2019-09-29 16:38:00 36.5 Mera [facility] Respiratory rate 2019-09-29 16:38:00 20 /min [facility] Body height 2019-09-29 16:38:00 160 cm [facility] Body weight 2019-09-29 16:38:[address] [facility] BMI 2019-09-29 16:38:00 42.87 kg/m2 [facility] ty [facility] Systolic blood 2019-04-28 14:39:00 105 mm[Hg] Univer sity of pressure [facility] Diastolic blood 2019-04-28 14:39:00 62 mm[Hg] Unive rsity of [facility] Heart rate 2019-04-28 14:39:00 87 /min Universi [facility] Body temperature 2019-04-28 14:39:00 [facility].94 [facility] 2019-04-28 14:39:00 18 /min [facility] Body height 2019-04-28 14:39:00 160 cm [facility] Body weight 2019-04-28 14:39:00 123.832 kg [facility] BMI 2019-04-28 14:39:00 48.36 kg/m2 [facility] BP Systolic 2022-09-10 11:46:00 168 mm[Hg] BP Diastolic 2022-09-10 11:46:00 121 mm[Hg] Weight Measured 2022-09-10 11:46:00 280.00 pounds Height Measured 2022-09-10 11:46:00 63.00 inches Body Temperature 2022-09-10 11:46:00 98.00 degrees Heart Rate 2022-09-10 11:46:00 84.00 /min Respiratory Rate 2022-09-10 11:46:00 18.00 /min BP Systolic 2022-09-04 08:54:00 163 mm[Hg] BP Diastolic 2022-09-04 08:54:00 124 mm[Hg] Weight Measured 2022-09-04 08:54:00 278.60 pounds Height Measured 2022-09-04 08:54:00 63.00 inches Body Temperature 2022-09-04 08:54:00 97.80 degrees Heart Rate 2022-09-04 08:54:00 83.00 /min Respiratory Rate 2022-09-04 08:54:00 BP Systolic 2022-08-28 11:52:00 165 mm[Hg] BP Diastolic 2022-08-28 11:52:00 111 mm[Hg] Weight Measured 2022-08-28 11:52:00 283.40 pounds Height Measured 2022-08-28 11:52:00 63.00 inches Body Temperature 2022-08-28 11:52:00 98.30 degrees Heart Rate 2022-08-28 11:52:00 98.00 /min Respiratory Rate 2022-08-28 11:52:00 18.00 /min BP Systolic 2021-10-03 11:20:00 123 mm[Hg] BP Diastolic 2021-10-03 11:20:00 88 mm[Hg] Weight Measured 2021-10-03 11:20:00 294.40 pounds Height Measured 2021-10-03 11:20:00 63.00 inches Body Temperature 2021-10-03 11:20:00 97.50 degrees Heart Rate 2021-10-03 11:20:00 96.00 /min Respiratory Rate 2021-10-03 11:20:00 21.00 /min BP Systolic 2021-09-04 16:25:00 144 mm[Hg] BP Diastolic 2021-09-04 16:25:00 95 mm[Hg] Weight Measured 2021-09-04 16:25:00 296.40 pounds Height Measured 2021-09-04 16:25:00 63.00 inches Body Temperature 2021-09-04 16:25:00 97.60 degrees Heart Rate 2021-09-04 16:25:00 98.00 /min Respiratory Rate 2021-09-04 16:25:00 17.00 /min BP Systolic 2019-08-04 10:28:00 120 mm[Hg] BP Diastolic 2019-08-04 10:28:00 80 mm[Hg] Weight Measured 2019-08-04 10:28:00 256.00 pounds Height Measured 2019-08-04 10:28:00 63.00 inches Body Temperature 2019-08-04 10:28:00 98.40 degrees Heart Rate 2019-08-04 10:28:00 82.00 /min Respiratory Rate 2019-08-04 10:28:00 17.00 /min BP Systolic 2019-07-27 09:54:00 112 mm[Hg] BP Diastolic 2019-07-27 09:54:00 80 mm[Hg] Weight Measured 2019-07-27 09:54:00 256.20 pounds Height Measured 2019-07-27 09:54:00 63.00 inches Body Temperature 2019-07-27 09:54:00 98.10 degrees Heart Rate 2019-07-27 09:54:00 94.00 /min Respiratory Rate 2019-07-27 09:54:00 16.00 /min BP Systolic 2019-05-04 13:25:00 BP Diastolic 2019-05-04 13:25:00 Weight Measured 2019-05-04 13:25:00 268.40 pounds Height Measured 2019-05-04 13:25:00 63.00 inches Body Temperature 2019-05-04 13:25:00 98.80 degrees Heart Rate 2019-05-04 13:25:00 88.00 /min Respiratory Rate 2019-05-04 13:25:00 16.00 /min BP Systolic 2019-03-29 09:16:00 117 mm[Hg] BP Diastolic 2019-03-29 09:16:00 87 mm[Hg] Weight Measured 2019-03-29 09:16:00 279.00 pounds Height Measured 2019-03-29 09:16:00 63.00 inches Body Temperature 2019-03-29 09:16:00 98.40 degrees Heart Rate 2019-03-29 09:16:00 83.00 /min Respiratory Rate 2019-03-29 09:16:00 16.00 /min BP Systolic 2019-03-29 08:39:00 129 mm[Hg] BP Diastolic 2019-03-29 08:39:00 94 mm[Hg] Weight Measured 2019-03-29 08:39:00 279.00 pounds Height Measured 2019-03-29 08:39:00 Body Temperature 2019-03-29 08:39:00 98.40 degrees Heart Rate 2019-03-29 08:39:00 83.00 /min Respiratory Rate 2019-03-29 08:39:00 16.00 /min BP Systolic 2019-02-08 11:27:00 125 mm[Hg] BP Diastolic 2019-02-08 11:27:00 87 mm[Hg] Weight Measured 2019-02-08 11:27:00 283.40 pounds Height Measured 2019-02-08 11:27:00 Body Temperature 2019-02-08 11:27:00 Heart Rate 2019-02-08 11:27:00 93.00 /min Respiratory Rate 2019-02-08 11:27:00 BP Systolic 2018-11-30 11:02:00 132 mm[Hg] BP Diastolic 2018-11-30 11:02:00 85 mm[Hg] Weight Measured 2018-11-30 11:02:00 299.00 pounds Height Measured 2018-11-30 11:02:00 Body Temperature 2018-11-30 11:02:00 Heart Rate 2018-11-30 11:02:00 72.00 /min Respiratory Rate 2018-11-30 11:02:00 Procedures Procedure Date / Time Performing Clinician Source Performed REFERRAL- 2020-09-27 06:01:00 Doctor Lucina, [facility] REQUEST/RESPONSE [facility] MR KNEE LEFT WO CONTRAST 2020-08-20 18:12:04 Alexandre Delgado [facility] NOTICE OF PRIVACY 2020-08-02 06:01:00 Doctor Lucina, [facility] PRACTICES [facility] AGREEMENTS AUTHORIZATIONS 2020-08-02 06:01:00 Doctor Lucina, [facility] AND IRREVOCABLE [facility] ASSIGNMENTS (FORM 2001) VACCINATIONS - CONSENTS, 2020-05-17 05:01:00 Doctor Verdugo [facility] ELIGIBILITY, HISTORY [facility] XR KNEE 3 VW LEFT 2020-03-16 13:13:36 Alexandre Delgado [facility] [place] SCANNED LAB RESULTS 2020-03-08 05:01:00 [facility] ASSIGNMENT OF BENEFITS 2020-02-10 13:57:41 [facility] - PRESCRIPTION / 2019-09-08 06:01:00 Marlin Banks [facility] ORDER [facility] AGREEMENTS AUTHORIZATIONS 2019-04-28 05:01:00 Doctor Lucina, [facility] AND IRREVOCABLE [facility] ASSIGNMENTS (FORM 2001) 72014 Ecg Routine Ecg 2018-06-14 00:00:00 W/least 12 Lds W/i r Plan of Care Planned Activity Planned Date Details Comments Source Goal Plan of Care Note [code = 13146-4] Goal Plan of Care Note [code = 20505-7] Goal Plan of Care Note [code = 92677-6] Goal Plan of Care Note [code = 46827-2] Goal Plan of Care Note [code = 20253-3] Goal Plan of Care Note [code = 34245-5] Goal Plan of Care Note [code = 74541-0] Goal Plan of Care Note [code = 97618-7] Goal Plan of Care Note [code = 40331-7] Goal Plan of Care Note [code = 40173-9] Goal Plan of Care Note [code = 74414-1] Goal Plan of Care Note [code = 25557-8] Goal Plan of Care Note [code = 25164-4] Goal Plan of Care Note [code = 35800-0] Goal Plan of Care Note [code = 22223-1] Goal Plan of Care Note [code = 13606-7] Goal Plan of Care Note [code = 42651-6] Goal Plan of Care Note [code = 60432-6] Goal Plan of Care Note [code = 00004-0] Goal Plan of Care Note [code = 73068-6] Goal Plan of Care Note [code = 59103-5] Goal Plan of Care Note [code = 41067-8] Goal Plan of Care Note [code = 81840-4] Goal Plan of Care Note [code = 58467-6] Goal Plan of Care Note [code = 97924-6] Goal Plan of Care Note [code = 56331-1] Goal Plan of Care Note [code = 86656-9] Goal Plan of Care Note [code = 36135-1] Goal Plan of Care Note [code = 70525-9] Goal Plan of Care Note [code = 36244-9] Goal Plan of Care Note [code = 84949-4] Goal Plan of Care Note [code = 48411-6] Goal Plan of Care Note [code = 87695-0] Goal Plan of Care Note [code = 15110-7] Goal Plan of Care Note [code = 58216-0] Goal Plan of Care Note [code = 82219-9] Goal Plan of Care Note [code = 89188-2] Goal Plan of Care Note [code = 04472-6] Goal Plan of Care Note [code = 44968-7] Goal Plan of Care Note [code = 96202-9] Goal Plan of Care Note [code = 76933-7] Goal Plan of Care Note [code = 62798-6] Goal Plan of Care Note [code = 82923-9] Goal Plan of Care Note [code = 12242-8] Goal Plan of Care Note [code = 02460-1] Goal Plan of Care Note [code = 06063-4] Goal Plan of Care Note [code = 37994-3] Goal Plan of Care Note [code = 30846-7] Goal Plan of Care Note [code = 30253-9] Goal Plan of Care Note [code = 61208-7] Goal Plan of Care Note [code = 35132-5] Goal Plan of Care Note [code = 37699-7] Goal Plan of Care Note [code = 72437-5] Goal Plan of Care Note [code = 41169-3] Goal Plan of Care Note [code = 03977-5] Goal Plan of Care Note [code = 97563-3] Goal Plan of Care Note [code = 52173-8] Goal Plan of Care Note [code = 48066-5] Goal Plan of Care Note [code = 98282-4] Goal Plan of Care Note [code = 23696-0] Goal Plan of Care Note [code = 17086-9] Goal Plan of Care Note [code = 28927-6] Goal Plan of Care Note [code = 12980-5] Goal Plan of Care Note [code = 63907-4] Goal Plan of Care Note [code = 07625-3] Goal Plan of Care Note [code = 07457-8] Goal Plan of Care Note [code = 93047-8] Goal Plan of Care Note [code = 81238-5] Goal Plan of Care Note [code = 08761-0] Goal Plan of Care Note [code = 40700-7] Goal Plan of Care Note [code = 43473-8] Goal Plan of Care Note [code = 25780-4] Goal Plan of Care Note [code = 38336-8] Goal Plan of Care Note [code = 75589-2] Goal Plan of Care Note [code = 69828-5] Goal Plan of Care Note [code = 91624-1] Goal Plan of Care Note [code = 14910-6] Goal Plan of Care Note [code = 38144-2] Goal Plan of Care Note [code = 75172-4] Goal Plan of Care Note [code = 47477-8] Goal Plan of Care Note [code = 92371-7] Goal Plan of Care Note [code = 15855-5] Goal Plan of Care Note [code = 89014-8] Goal Plan of Care Note [code = 21318-4] Goal Plan of Care Note [code = 26792-3] Goal Plan of Care Note [code = 82806-6] Goal Plan of Care Note [code = 61910-9] Goal Plan of Care Note [code = 70303-8] Goal Plan of Care Note [code = 31460-9] Goal Plan of Care Note [code = 70254-3] Goal Plan of Care Note [code = 71566-7] Goal Plan of Care Note [code = 45397-6] Goal Plan of Care Note [code = 66231-2] Goal Plan of Care Note [code = 51581-1] Goal Plan of Care Note [code = 12177-0] Goal Plan of Care Note [code = 76050-0] Goal Plan of Care Note [code = 12175-4] Goal Plan of Care Note [code = 91884-5] Goal Plan of Care Note [code = 81129-7] Goal Plan of Care Note [code = 64419-8] Goal Plan of Care Note [code = 26657-7] Goal Plan of Care Note [code = 80818-6] Goal Plan of Care Note [code = 49388-1] Goal Plan of Care Note [code = 37822-5] Goal Plan of Care Note [code = 77941-1] Goal Plan of Care Note [code = 56986-4] Goal Plan of Care Note [code = 52903-0] Goal Plan of Care Note [code = 89760-4] Goal Plan of Care Note [code = 38482-1] Encounters Start End Encounter Admission Attending Care Care Encounter Source Date/Time Date/Time Type Type Clinicians Facility Department ID 2022-10-28 2022-10-28 Outpatient JELENA VICK [id number] Jelena 09:00:00 09:00:00 DARLIN nolasco 2022-10-22 2022-10-22 Outpatient JELENA GARY [id number] Jelena 08:00:00 08:00:00 ROBYN Seybol d 2022-10-10 2022-10-10 Outpatient LAB90 JELENA KNIGHT [id number] Jelena 09:25:00 09:25:00 Seybol d 2022-10-10 2022-10-10 Outpatient JELENA GARY JELENA [id number] Jelena 08:30:00 08:30:00 ROBYN Seybol d 2022-10-09 2022-10-09 Outpatient FARIDAL JELENA KNIGHT [id number] Jelena 08:30:00 08:30:00 ROBYN Seybol d 2022-10-09 2022-10-09 Outpatient HUNDL, JELENA KNIGHT [id number] Jelena 00:00:00 00:00:00 ROBYN Seybol d 2022-09-30 2022-09-30 Outpatient HUNDL, JELENA KNIGHT [id number] Jelena 00:00:00 00:00:00 ROBYN Seybol d 2022-09-26 2022-09-26 Outpatient FARIDAL JELENA KNIGHT [id number] Jelena 00:00:00 00:00:00 ROBYN Seybol d 2022-09-24 2022-09-24 Outpatient LAB90 JELENA KNIGHT [id number] Jelena 17:05:00 17:05:00 Seybol d 2022-09-24 2022-09-24 Outpatient FARIDAL, JELENA KNIGHT [id number] Jelena 11:00:00 11:00:00 ROBYN Seybol d 2022-09-22 2022-09-22 Outpatient [facility] [id number] Jarod 09:21:24 09:21:24 0123 F Lee 2022-09-22 2022-09-22 Outpatient FARIDAL JELENA KNIGHT [id number] Jelena 00:00:00 00:00:00 ROBYN Seybol d 2022-09-17 2022-09-17 Outpatient HUNDLJELENA [id number] Jelena 00:00:00 00:00:00 ROBYN Seybol d 2022-09-12 2022-09-12 Outpatient HUNDL JELENA KNIGHT [id number] Jelena 00:00:00 00:00:00 ROBYN Seybol d 2022-09-11 2022-09-11 Outpatient JELENA GARYSEY [id number] Jelena 00:00:00 00:00:00 ROBYN Eatonol tierra 2022-09-10 2022-09-10 Outpatient SFA SFA [id number] Jarod 11:36:44 11:36:44 0111 F Lee 2022-09-10 2022-09-10 Outpatient [id number]- [id number] 3c [id number] 00:00:00 00:00:00 Visit 87da-47c3 7da-47c3-b -hw94-9n4 v68-9g3i6a [id number] k62015 2022-09-09 2022-09-09 Outpatient LAB90 JELENA JELENA [id number] Jelena 09:30:00 09:30:00 Chencho mayorga 2022-09-09 2022-09-09 Outpatient JELENA GARY JELENA [id number] Jelena 08:30:00 08:30:00 ROBYN Malcolmybol tierra 2022-09-09 2022-09-09 Outpatient JELENA GARY JELENA [id number] Jelena 00:00:00 00:00:00 ROBYN Malcolmybol tierra 2022-09-04 2022-09-04 Outpatient SFA SFA [id number] Jarod 08:29:33 08:29:33 0105 F Lee 2022-09-04 2022-09-04 Outpatient [id number]- [id number] 3f 62beff-[id number] 00:00:00 00:00:00 Visit 6sp5-5lv1 bd9-4ec7-b -bbc8-d95 bc8-d957ab 3zw0b1848 1g9551 2022-08-28 2022-08-28 Outpatient SFA SFA [id number] 022 Jarod 11:35:11 11:35:11 1229 F Lee 2022-08-28 2022-08-28 Outpatient [id number] 0d [id number] 00:00:00 00:00:00 Visit 010b-47c2 10b-47c2-b -k1z4-l02 0n4-z641t5 5n5712m0l 517b1b 2022-05-24 2022-05-24 emergency [id number] [id number] 15:15:00 18:38:00 2381-551e 81-551e-843 36 -843c-ca8 c-qk3h3038w t1999l6tx 5eb 2022-03-15 2022-03-15 Outpatient AMBREEN_CONSTANTIN PEDERSEN [facility] 761 [place] 10:56:00 10:56:00 FLO 0716 [facility] 2020-11-29 2020-11-29 [facility] [id number] Univers 15:30:00 15:30:00 ANNEMARIE magaña [facility] 2020-10-23 2020-10-23 Telephone Alexandre Delgado 1.2.840.114 [id number] 00:00:00 00:00:00 [facility] 350.1.13.10 HEALTH 4.2.7.2.686 UNIT [id number] 2020-10-23 2020-10-23 Telephone Alexandre Delgado 1.2.840.114 [id number] Univers 00:00:00 00:00:00 [facility] 350.1.13.10 it [place] [id number] [address] 2020-10-12 2020-10-12 [facility] [id number] Univers 09:00:00 09:00:00 SHEY arshad of [facility] 2020-09-27 2020-09-27 Orders Doctor PRIETO 1.2.840.114 [id number] 00:00:00 00:00:00 Only Unassigned, [place] 350.1.13.10 [facility] 4.2.7.2.686 [id number] 009 2020-09-27 2020-09-27 Orders Doctor CONNER 1.2.840.114 [id number] Univers 00:00:00 00:00:00 Only Unassigned, LESLEY 350.1.13.10 ity of [place] [facility] 4.2.7.2.686 Marvel as [id number] [address] 2020-09-20 2020-09-20 [facility] 1.2.840.114 [id number] 00:00:00 00:00:00 [facility] 350.1.13.10 Surgical 4.2.7.2.686 Specialti [id number] es [address] [place] 2020-09-20 2020-09-20 Telephone Tash [facility] 1.2.840.114 [id number] Univers 00:00:00 00:00:00 [facility] 350.1.13.10 it y of Surgical 4.2.7.2.686 Marvel as Specialti [phone] Mt dical es 198 [facility] 2020-09-07 2020-09-07 Office [facility] [id number] 09:03:53 09:52:26 Visit [facility] 350.1.13.10 Surgical 4.2.7.2.686 Specialti [id number] [address] 2020-09-07 2020-09-07 [facility] 1.2.517.973 [id number] Univers 09:03:53 09:52:26 Visit Shey [facility] 350.1.13.10 it y of Surgical 4.2.7.2.686 [place] as Specialti [id number] Mt dic[address] 2020-09-07 2020-09-07 Outpatient R TASH [facility] [id number] Univers 09:00:00 09:00:00 SHEY arshad [facility] 2020-08-30 2020-08-30 Outpatient R TASH [facility] [id number] Univers 08:30:00 08:30:00 SHEY arshad [facility] 2020-08-20 2020-08-20 [facility] 1.2.840.114 [id number] Univers 10:11:58 23:59:00 Encounter Health 350.1.13.10 [place] [phone] [address] ([facility]) 2020-08-20 2020-08-20 Outpatient R ROSS, [facility] [id number] Univers 10:11:58 23:59:00 ity [facility] 2020-08-16 2020-08-16 Refgreg Sosa [facility] 1.2.840.114 [id number] Univers 00:00:00 00:00:00 [facility] 350.1.13.10 it y of [place] 4.2.7.2.686 Marvel as Professio [id number] [address] Office Building One 2020-08-02 2020-08-02 Office Care, Ang Primary [place] 1.2.840 .114 [id number] Univers 10:40:31 12:20:58 Visit Sandy [facility] 350.1.13.10 it[place] [id number] [address] 2020-08-02 2020-08-02 Outpatient R SANDY [facility] [id number] Univers 10:30:00 10:30:00 ity [facility] 2020-08-02 2020-08-02 Orders Doctor CONNER 1.2.840.114 [id number] Univers 00:00:00 00:00:00 Only Unassigned, [place] 350.1.13.10 [facility] 4.2.7.2.686 Marvel as [id number] [address] 2020-05-31 2020-05-31 Outpatient Gracia LAMAR [facility] [id number] Univers 08:50:00 08:50:00 ILIANA arshad [facility] 2020-05-24 2020-05-24 Outpatient Gracia DELGADO [facility] [id number] Univers 00:00:00 00:00:00 ity [facility] 2020-05-22 2020-05-22 Outpatient [facility] [id number] Univers 09:50:00 09:50:00 ILIANA itemmy [facility] 2020-05-17 2020-05-21 Office Care, Ang Primary [place] 1.2.840 .114 [id number] Univers 11:05:31 09:49:52 [facility] 350.1.13.10 [place] [id number] [address] 2020-05-21 2020-05-21 Outpatient R ALEXANDRE DELGADO [facility] [id number] Univers 00:00:00 00:00:00 ity of [facility] 2020-05-17 2020-05-17 Outpatient R ALEXANDRE DELGADO [facility] [id number] Univers 10:30:00 10:30:00 ity of [facility] 2020-05-17 2020-05-17 Orders Doctor PRIETO 1.2.840.114 [id number] Univers 00:00:00 00:00:00 Only Unassigned, [place] 350.1.13.10 [place] [facility] 4.2.7.2.686 Marvel as [id number] [address] 2020-05-08 2020-05-08 [facility] [id number] Univers 08:30:00 08:30:00 ANNEMARIE magaña [facility] 2020-05-08 2020-05-08 [facility]ici [facility] 1.2.840.114 [id number] Univers 07:05:41 07:35:41 ne Visit Annemarie AVILES 350.1.13.10 it[place] of [place] AT [id number] Mt suman NIEVESEmmy 2 [facility] 2020-05-01 2020-05-01 Out[facility] [id number] Univers 09:30:00 09:30:00 ANNEMARIE magaña [facility] 2020-04-24 2020-04-24 Outpatient [facility] [id number] Univers 09:30:00 09:30:00 ANNEMARIE arshad o gómez [facility] 2020-03-08 2020-03-20 Office Care, Ang Primary [place] 1.2.840 .114 [id number] Univers 10:02:59 09:15:53 Visit Alexandre Delgado [facility] 350.1.13.10 it[place] [id number] [address] 2020-03-16 2020-03-16 Hospital Sandy Alexandre [facility] 1.2.840.114 [id number] Univers 07:51:00 23:59:00 Encounter Hubert 350.1.13.10 it[place] of [place] [id number] [facility] [address] 2020-03-16 2020-03-16 Outpatient R ALEXANDRE DELGADO [facility] [id number] Univers 00:00:00 00:00:00 ity of [facility] 2020-03-13 2020-03-13 Telephone Alexandre Delgado ROSY 1.2.840.114 [id number] Univers 00:00:00 00:00:00 [facility] 350.1.13.10 it [place] [id number] [facility] CARE 362 [facility] 2020-03-08 2020-03-08 Outpatient R ALEXANDRE DELGADO [facility] [id number] Univers 10:00:00 10:00:00 ity of [facility] 2020-03-08 2020-03-08 Orders Doctor PRIETO 1.2.840.114 [id number] Univers 00:00:00 00:00:00 Only Unassigned, [place] 350.1.13.10 [place] [facility] 4.2.7.2.686 Marvel as [id number] [facility] [address] 2020-02-29 2020-02-29 Telephone Alexandre Delgado ROSY 1.2.840.114 [id number] Univers 00:00:00 00:00:00 [facility] 350.1.13.10 it [place] [id number] [facility] [address] 2020-02-14 2020-02-14 Telephone [facility] 1.2.235.676 [id number] Univers 00:00:00 00:00:00 Dannie Gaspar 350.1.13.10 it[place] Profess[place] [phone] [facility] [address] [facility] 2020-02-10 2020-02-10 Outpatient R [facility] [id number] Univers 09:00:00 09:00:00 ity of [facility] 2020-02-10 2020-02-10 Orders Doctor CONNER 1.2.840.114 [id number] Univers 00:00:00 00:00:00 Only Unassigned, LESLEY 350.1.13.10 it[place] of [place] [facility] 4.2.7.2.686 Marvel as [id number] [facility] [address] [place] 2020-01-24 2020-01-24 Outpatient R FER [facility] [id number] Univers 10:40:00 10:40:00 DANNIE arshad o f [facility] 2020-01-24 2020-01-24 Telemedici [facility] 1.2.840.114 [id number] Univers 07:57:10 08:17:10 ne Visit Dannie Gaspar 350.1.13.10 [place] Profess[place] [phone] Mt dicnargis nal 059 [facility] 2020-01-18 2020-01-18 Outpatient R [facility] [id number] Univers 13:00:00 13:00:00 ity of [facility] 2019-11-10 2019-11-10 Telephone Alexandre Delgado 1.2.840.114 [id number] Univers 00:00:00 00:00:00 [facility] 350.1.13.10 it y [place] [id number] [facility] [address] [place] 2019-11-03 2019-11-03 Outpatient R ALEXANDRE DELGADO [facility] [id number] Univers 08:15:00 08:15:00 ity of [facility] 2019-10-25 2019-10-25 Office [facility] 1.2.840.114 [id number] Univers 08:48:06 09:27:18 Visit Annemarie AVILES 350.1.13.10 ity of [facility] 4.2.7.2.[place] C[place] AT [phone] Mt dical VICTORY 072 [facility] 2019-10-25 2019-10-25 [facility] [id number] Univers 09:00:00 09:00:00 ANNEMARIEDANIS arshad o f [facility] 2019-10-24 2019-10-24 Office [facility] 1.2.840.114 [id number] Univers 10:57:17 15:44:20 Visit Dannie Gaspar 350.1.13.10 it[place] Profess[place] [phone] Mt [facility]nargis [facility] 059 [facility] 2019-10-24 2019-10-24 Outpatient R FER [facility] [id number] Univers 11:00:00 11:00:00 DANNIE ity o f [facility] 2019-09-29 2019-09-29 Office Care, Ang Primary [place] 1.2.840 .114 [id number] Univers 10:38:08 11:16:42 Visit Alexandre Delgado [facility] 350.1.13.10 ity of [place] [id number] [address] 2019-09-29 2019-09-29 Outpatient R ALEXANDRE DELGADO [facility] [id number] Univers 10:00:00 11:16:42 ity of [facility] 2019-09-14 2019-09-14 Telephone Alexandre Delgado ROSY 1.2.840.114 [id number] Univers 00:00:00 00:00:00 [facility] 350.1.13.10 it [place] [id number] [address] 2019-09-08 2019-09-08 Orders Doctor CONNER 1.2.840.114 [id number] Univers 00:00:00 00:00:00 Only Unassigned, [place] 350.1.13.10 [place] [facility] 4.2.7.2.686 Marvel as [id number] [place] [address] [address] 2019-05-05 2019-05-05 Telephone Alexandre Delgado ROSY 1.2.840.114 [id number] Univers 00:00:00 00:00:00 [facility] 350.1.13.10 it [place] of [place] [id number] [address] 2019-04-28 2019-04-28 Office Care, Ang Primary [place] 1.2.840 .114 [id number] Univers 09:26:40 11:38:19 Visit Alexandre Delgado [facility] 350.1.13.10 it[place] of [place] [id number] [facility] [address] 2019-04-28 2019-04-28 Orders Doctor CONNER 1.2.840.114 [id number] Univers 00:00:00 00:00:00 Only Unassigned, LESLEY 350.1.13.10 ity of [place] [facility] 4.2.7.2.686 Marvel as [id number] [facility] [address] Results Test Description Test Time Test Comments Results Result Comments Source TSH, THIRD GENERATION 2022-09-11 04:08:38 Test Item Value Reference Range Interpretation Comme nts TSH, THIRD GENERATION (test 2.060 UIU/ML 0.400-4.100 UNLESS OTHERWISE INDICATED, code = 2821) ALL TESTING PER FORMED ATCLINICAL PATH [employer], [place] [phone] ADVISORY SERVICES ASSOCIATE: Tracey COBB [id number] [facility] [place] [id number] COMPREHENSIVE METABOLIC [id number] 03:23:31 Test Item Value Reference Range Interpretation Comments GLUCOSE (test code = 80 MG/DL 70-99 2216) BUN (test code = 7 MG/DL 6-20 2207) CREATININE (test 0.55 MG/DL 0.60-1.30 L code = 2214) eGFR (2020 CKD-EPI) 127 >60 (test code = 89867) ML/MIN/1.73 CALC BUN/CREAT (test 13 RATIO - code = 2235) SODIUM (test code = 138 MEQ/L 931-415 5375) POTASSIUM (test code 3.9 MEQ/L 3.5-5.4 = 222) CHLORIDE (test code 104 MEQ/L 95-107 = 221) CARBON DIOXIDE (test 21 MEQ/L - code = 2206) CALCIUM (test code = 9.5 MG/DL 8.5-10.5 2208) PROTEIN, TOTAL (test 7.9 G/DL 6.1-8.3 code = 2229) ALBUMIN (test code = 4.2 G/DL 3.5-5.2 2200) CALC GLOBULIN (test 3.7 G/DL 1.9-3.7 code = 2240) CALC A/G RATIO (test 1.1 RATIO 1.0-2.6 code = 2234) BILIRUBIN, TOTAL 0.4 MG/DL See_Comment [Automated message] (test code = 2207) The syste m which generated this result transmit inge reference range : <=1.2. The refe rence range was not u sed to interpret th is result as normal/abnormal . ALKALINE PHOSPHATASE 64 U/L 40-112 (test code = 2204) AST (test code = 20 U/L 9-40 8) ALT (test code = 8 U/L 5-40 2219) CBC W/AUTO DIFF WITH [id number] 02:00:05 Test Item Value Reference Range Interpretation Comments WBC (test code = 6.3 K/UL 3.5-11.0 1001) RBC (test code = 4.39 M/UL 3.80-5.40 1002) HEMOGLOBIN (test code 9.3 G/DL 11.5-15.5 L = 1003) HEMATOCRIT (test code 31.0 % 34.0-45.0 L = 1004) MCV (test code = 70.6 fL 80.0-99.0 L 1005) MCH (test code = 21.2 PG 25.0-33.0 L 1006) MCHC (test code = 30.0 G/DL 31.0-36.0 L 1007) RDW (test code = 17.0 % 11.5-15.0 H 1038) NEUTROPHILS (test 56.6 % code = 1008) LYMPHOCYTES (test 32.6 % code = 1010) MONOCYTES (test code 5.4 % = 1011) EOSINOPHILS (test 4.5 % code = 1012) BASOPHILS (test code 0.6 % = 1013) IMMATURE GRANULOCYTES 0.3 % (test code = 1036) NUCLEATED RBCS (test 0.0 /100 WBC'S See_Comment [Aut omated code = 1065) message] The sy stem which generated this result transmitted reference range : 0.0. The refere nce range was not u sed to interpret th is result as normal/abnormal . PLATELET COUNT (test 381 K/UL 130-400 code = 1015) ABSOLUTE NEUTROPHILS 3.53 K/UL 1.50-7.50 (test code = 1066) ABSOLUTE LYMPHOCYTES 2.04 K/UL 1.00-4.00 (test code = 1067) ABSOLUTE MONOCYTES 0.34 K/UL 0.20-1.00 (test code = 1068) ABSOLUTE EOSINOPHILS 0.28 K/UL 0.00-0.50 (test code = 1040) ABSOLUTE BASOPHILS 0.04 K/UL 0.00-0.20 (test code = 1069) ABS IMMATURE 0.02 K/UL 0.00-0.10 GRANULOCYTES (test code = 1020) ABS NUCLEATED RBCS 0.00 K/UL 0.00-0.11 (test code = 30150) CT/NG, NAAT, [id number] 20:52:50 Test Item Value Reference Range Interpretation Comments GONORRHEA, NAAT NEGATIVE NEGATIVE Note: Testi ng is (test code = 44938) performe d with Emili EDEL 6800/8800 systems using real-time polymerase cali n reaction (PCR) method. CHLAMYDIA, NAAT NEGATIVE NEGATIVE Note: Testi ng is (test code = 93756) performe d with Emili EDEL 6800/8800 systems using real-time polymerase cali n reaction (PCR) method. HEPATITIS PANEL, [id number] 05:02:20 Test Item Value Reference Range Interpretation Comments HEPATITIS A IgM (test NON-REACTIVE NON-REACTIVE code = 41665) HEPATITIS B CORE IgM NON-REACTIVE NON-REACTIVE (test code = 4644) HEPATITIS B SURF AG NON-REACTIVE NON-REACTIVE (test code = 2739) HEPATITIS C ANTIBODY NON-REACTIVE NON-REACTIVE (test code = 4675) INTERPRETATION (NOTE) Hepatitis A HEPATITIS A: (test code sero logy shows no = 2552) evidence of acu te hepatitis A. INTERPRETATION (NOTE) Hepatitis B HEPATITIS B: (test code sero logy shows no = 12328) evidence of acu te hepatitis B and no indication of exposure to hepatitis B vir us in the previous alejandra eight months. INTERPRETATION (NOTE) Hepatitis C HEPATITIS C: (test code sero logy shows no = 51480) evidence of exposure to hepatitisC viru s at this time. I t can take up to 12 months after exposure tothe hepatitis C vir us for antibodies to become detectab le in the blood in certain patient s. HIV 1/2 4TH GEN, RFLX [id number] 05:02:20 Test Item Value Reference Range Interpretation Comments HIV 1/2 4TH GEN, NON-REACTIVE NON-REACTIVE UNLESS OTH ERWISE RFLX CONF (test INDICATED, A LL TESTING code = 3514) PERFORMED [facility] NICAL PATHOLOGY [facility] [address] [place] [address] [facility] DIRECTOR: [place] AGUIRRE M.D. IA NUMBER [id number] CAP ACCREDITATION N O. [id number] RPR REFLEX TO T. PALLIDUM - [id number] 04:28:08 Test Item Value Reference Range Interpretation Comments RPR (test code = 93314) NON-REACTIVE NON-REACTIVE RPR TITER (test code = 3500) NOT INDIC. TITER NOT INDIC. CT/NG, TMA, [id number] 00:00:00 Test Item Value Reference Range Interpretation Comments GONORRHEA, NAAT (test code = 05586) NEGATIVE CHLAMYDIA, NAAT (test code = 42827) NEGATIVE CT/NG, TMA, [id number] 00:00:00 Test Item Value Reference Range Interpretation Comments GONORRHEA, NAAT (test code = 56200) NEGATIVE CHLAMYDIA, NAAT (test code = 93165) NEGATIVE RPR REFLEX TO T. PALLIDUM - [id number] 00:00:00 Test Item Value Reference Range Interpretation Comments RPR (test code = 08125) NON-REACTIVE RPR TITER (test code = 3500) NOT INDIC. TITER RPR REFLEX TO T. PALLIDUM - [id number] 00:00:00 Test Item Value Reference Range Interpretation Comments RPR (test code = 19986) NON-REACTIVE RPR TITER (test code = 3500) NOT INDIC. TITER ACUTE HEPATITIS [id number] 00:00:00 Test Item Value Reference Range Interpretation Comments HEPATITIS A IgM (test code = NON-REACTIVE 03157) HEPATITIS B CORE IgM (test code NON-REACTIVE = 4644) HEPATITIS B SURF AG (test code = NON-REACTIVE 9439) HEPATITIS C ANTIBODY (test code NON-REACTIVE = 4975) INTERPRETATION HEPATITIS A: (NOTE) (test code = 2552) INTERPRETATION HEPATITIS B: (NOTE) (test code = 64119) INTERPRETATION HEPATITIS C: (NOTE) (test code = 16845) ACUTE HEPATITIS [id number] 00:00:00 Test Item Value Reference Range Interpretation Comments HEPATITIS A IgM (test code = NON-REACTIVE 46147) HEPATITIS B CORE IgM (test code NON-REACTIVE = 4644) HEPATITIS B SURF AG (test code = NON-REACTIVE 2649) HEPATITIS C ANTIBODY (test code NON-REACTIVE = 4632) INTERPRETATION HEPATITIS A: (NOTE) (test code = 2552) INTERPRETATION HEPATITIS B: (NOTE) (test code = 32545) INTERPRETATION HEPATITIS C: (NOTE) (test code = 23932) HIV 1/2 4TH GEN, RFLX [id number] 00:00:00 Test Item Value Reference Range Interpretation Comments HIV 1/2 4TH GEN, RFLX CONF (test NON-REACTIVE code = 3514) HIV 1/2 4TH GEN, RFLX [id number] 00:00:00 Test Item Value Reference Range Interpretation Comments HIV 1/2 4TH GEN, RFLX CONF (test NON-REACTIVE code = 3514) VITAMIN D, 25 [id number] 03:25:23 Test Item Value Reference Range Interpretation Comments VITAMIN D, 25 OH 27 NG/ML SEE BELOW L NOTE: 25-H YDROXYVITAMIN D (test code = 4958) ASSAY INC LUDES 25-HYDROXYVITAM IN D2 AND D3. METHODOLOGY IS CHEMILUMINESCEN T IMMUNOASSAY. INTERPRETIVE RA NGES PEDIATRIC (<17 YEARS) . . . . . . . . . . . NG/ML 20-100ADULT: IN SUFFICIENT . . . . . . . . . . . . . . NG/ML <20 SUBOP TIMAL . . . . . . . . . . . . . . . NG/ML 20-29 OPT IMAL . . . . . . . . . . . . . . . . . NG/ML 30-100 UN LESS OTHERWISE INDIC ATED, ALL TESTING PERFORM ED ATCLINICAL PATH [facility], [facility]. [address] [place] [id number] LABORATORY DIRE CTOR: Rebeca COBB. CLIA NUMBER [id number] CAP ACCREDITATION N O. [id number] HIV 1/2 4TH GEN, RFLX [id number] 03:00:39 Test Item Value Reference Range Interpretation Comments HIV 1/2 4TH GEN, RFLX CONF (test NON-REACTIVE NON-REACTIVE code = 3514) HIV AB/AG COMBO RFLX [id number] 00:00:00 Test Item Value Reference Range Interpretation Comments HIV 1/2 4TH GEN, RFLX CONF (test NON-REACTIVE code = 3514) HIV AB/AG COMBO RFLX [id number] 00:00:00 Test Item Value Reference Range Interpretation Comments HIV 1/2 4TH GEN, RFLX CONF (test NON-REACTIVE code = 3514) VITAMIN D, 25 [id number] 00:00:00 Test Item Value Reference Range Interpretation Comments VITAMIN D, 25 OH (test code = 4958) 27 NG/ML VITAMIN D, 25 [id number] 00:00:00 Test Item Value Reference Range Interpretation Comments VITAMIN D, 25 OH (test code = 4958) 27 NG/ML HIV AB/AG COMBO RFLX [id number] 00:00:00 Test Item Value Reference Range Interpretation Comments HIV 1/2 4TH GEN, RFLX CONF (test NON-REACTIVE code = 3514) HIV AB/AG COMBO RFLX [id number] 00:00:00 Test Item Value Reference Range Interpretation Comments HIV 1/2 4TH GEN, RFLX CONF (test NON-REACTIVE code = 3514) VITAMIN D, 25 [id number] 00:00:00 Test Item Value Reference Range Interpretation Comments VITAMIN D, 25 OH (test code = 4958) 27 NG/ML VITAMIN D, 25 [id number] 00:00:00 Test Item Value Reference Range Interpretation Comments VITAMIN D, 25 OH (test code = 4958) 27 NG/ML HIV AB/AG COMBO RFLX [id number] 00:00:00 Test Item Value Reference Range Interpretation Comments HIV 1/2 4TH GEN, RFLX CONF (test NON-REACTIVE code = 3514) HIV AB/AG COMBO RFLX [id number] 00:00:00 Test Item Value Reference Range Interpretation Comments HIV 1/2 4TH GEN, RFLX CONF (test NON-REACTIVE code = 3514) VITAMIN D, 25 [id number] 00:00:00 Test Item Value Reference Range Interpretation Comments VITAMIN D, 25 OH (test code = 4958) 27 NG/ML VITAMIN D, 25 [id number] 00:00:00 Test Item Value Reference Range Interpretation Comments VITAMIN D, 25 OH (test code = 4958) 27 NG/ML TSH, THIRD [id number] 00:19:50 Test Item Value Reference Range Interpretation Comments TSH, THIRD GENERATION (test code 1.090 UIU/ML 0.400-4.100 = 2821) [id number] 00:00:00 Test Item Value Reference Range Interpretation Comments TSH, THIRD GENERATION (test code 1.090 UIU/ML = 2821) [id number] 00:00:00 Test Item Value Reference Range Interpretation Comments TSH, THIRD GENERATION (test code 1.090 UIU/ML = 2821) [id number] 00:00:00 Test Item Value Reference Range Interpretation Comments TSH, THIRD GENERATION (test code 1.090 UIU/ML = 2821) [id number] 00:00:00 Test Item Value Reference Range Interpretation Comments TSH, THIRD GENERATION (test code 1.090 UIU/ML = 2821) [id number] 00:00:00 Test Item Value Reference Range Interpretation Comments TSH, THIRD GENERATION (test code 1.090 UIU/ML = 2821) [id number] 00:00:00 Test Item Value Reference Range Interpretation Comments TSH, THIRD GENERATION (test code 1.090 UIU/ML = 2821) [id number] 00:00:00 Test Item Value Reference Range Interpretation Comments TSH, THIRD GENERATION (test code 1.090 UIU/ML = 2821) [id number] 00:00:00 Test Item Value Reference Range Interpretation Comments TSH, THIRD GENERATION (test code 1.090 UIU/ML = 2821) [id number] 00:00:00 Test Item Value Reference Range Interpretation Comments TSH, THIRD GENERATION (test code 1.090 UIU/ML = 2821) LIPID [id number] 23:59:41 Test Item Value Reference Range Interpretation [...] MOREINFORMATION , SEE CLIENT ANNOUNCE MENT AT [email or web address] /CalcLDL-C RISK RATIO LDL/HDL 1.79 RATIO <3.22 (test code = 2238) COMPREHENSIVE METABOLIC [id number] 23:59:41 Test Item Value Reference Range Interpretation Comments GLUCOSE (test code = 77 MG/DL 70-99 2216) BUN (test code = 8 MG/DL 6-20 2207) CREATININE (test 0.67 MG/DL 0.60-1.30 EFFECTIVE code = 2214) 08/12/2021, THE [facility] HAS IMPLEMENTED THE NKF-ASN RECOMME NDED KD-EPI EGF R REFIT CALCULATI ON THAT DOES NOT INCLUDE A COEFFICIENT FOR RACE. FOR MORE INFORMATION, SE E ANNOUNCEMENT [email or web address]_[email or web address] eGFR (2020 CKD-EPI) 122 >60 (test code = 05409) ML/MIN/1.73 CALC BUN/CREAT (test 12 RATIO 6-28 code = 2235) SODIUM (test code = 141 MEQ/L 369-815 5707) POTASSIUM (test code 4.0 MEQ/L 3.5-5.4 = 2227) CHLORIDE (test code 102 MEQ/L 95-107 = 2214) CARBON DIOXIDE (test 22 MEQ/L 19-31 code = 2206) CALCIUM (test code = 9.3 MG/DL 8.5-10.5 2208) PROTEIN, TOTAL (test 7.6 G/DL 6.1-8.3 code = 2229) ALBUMIN (test code = 4.2 G/DL 3.5-5.2 2200) CALC GLOBULIN (test 3.4 G/DL 1.9-3.7 code = 2240) CALC A/G RATIO (test 1.2 RATIO 1.0-2.6 code = 2234) BILIRUBIN, TOTAL 0.3 MG/DL See_Comment [Automated message] (test code = 2207) The syste m which generated this result transmit inge reference range : <=1.2. The refe rence range was not u sed to interpret th is result as normal/abnormal . ALKALINE PHOSPHATASE 56 U/L 40-112 (test code = 2203) AST (test code = 63 U/L 9-40 H 2217) ALT (test code = 92 U/L 5-40 H 2218) HEMOGLOBIN [id number] 03:14:31 Test Item Value Reference Range Interpretation Comments HEMOGLOBIN A1c (test code = 95775) 6.0 % 4.2-5.6 H CBC W/AUTO DIFF WITH [id number] 03:06:02 Test Item Value Reference Range Interpretation [...] RBCS 0.00 K/UL 0.00-0.11 (test code = 82682) CBC W/AUTO [id number] 00:00:00 Test Item Value Reference Range Interpretation Comments WBC (test code = 1001) 2.7 K/UL RBC (test code = 1002) 4.34 M/UL HEMOGLOBIN (test code = 1003) 9.8 G/DL HEMATOCRIT (test code = 1004) 30.9 % MCV (test code = 1005) 71.2 fL MCH (test code = 1006) 22.6 PG MCHC (test code = 1007) 31.7 G/DL RDW (test code = 1038) 15.6 % NEUTROPHILS (test code = 1008) 46.4 % LYMPHOCYTES (test code = 1010) 46.3 % MONOCYTES (test code = 1011) 5.5 % EOSINOPHILS (test code = 1012) 0.7 % BASOPHILS (test code = 1013) 0.7 % IMMATURE GRANYLOCYTES (test 0.4 % code = 1036) NUCLEATED RBCS (test code = 0.0 /100WBC'S 1065) PLATELET COUNT (test code = 281 K/UL 1015) ABSOLUTE NEUTROPHILS (test code 1.26 K/UL = 1066) ABSOLUTE LYMPHOCYTES (test code 1.26 K/UL = 1067) ABSOLUTE MONOCYTES (test code = 0.15 K/UL 1068) ABSOLUTE EOSINOPHILS (test code 0.02 K/UL = 1040) ABSOLUTE BASOPHILS (test code = 0.02 K/UL 1069) ABS IMMATURE GRANULOCYTES (test 0.01 K/UL code = 1020) ABS NUCLEATED RBCS (test code = 0.00 K/UL 15756) CBC W/AUTO [id number] 00:00:00 Test Item Value Reference Range Interpretation Comments WBC (test code = 1001) 2.7 K/UL RBC (test code = 1002) 4.34 M/UL HEMOGLOBIN (test code = 1003) 9.8 G/DL HEMATOCRIT (test code = 1004) 30.9 % MCV (test code = 1005) 71.2 fL MCH (test code = 1006) 22.6 PG MCHC (test code = 1007) 31.7 G/DL RDW (test code = 1038) 15.6 % NEUTROPHILS (test code = 1008) 46.4 % LYMPHOCYTES (test code = 1010) 46.3 % MONOCYTES (test code = 1011) 5.5 % EOSINOPHILS (test code = 1012) 0.7 % BASOPHILS (test code = 1013) 0.7 % IMMATURE GRANYLOCYTES (test 0.4 % code = 1036) NUCLEATED RBCS (test code = 0.0 /100WBC'S 1065) PLATELET COUNT (test code = 281 K/UL 1015) ABSOLUTE NEUTROPHILS (test code 1.26 K/UL = 1066) ABSOLUTE LYMPHOCYTES (test code 1.26 K/UL = 1067) ABSOLUTE MONOCYTES (test code = 0.15 K/UL 1068) ABSOLUTE EOSINOPHILS (test code 0.02 K/UL = 1040) ABSOLUTE BASOPHILS (test code = 0.02 K/UL 1069) ABS IMMATURE GRANULOCYTES (test 0.01 K/UL code = 1020) ABS NUCLEATED RBCS (test code = 0.00 K/UL 37217) CBC W/AUTO [id number] 00:00:00 Test Item Value Reference Range Interpretation Comments WBC (test code = 1001) 2.7 K/UL RBC (test code = 1002) 4.34 M/UL HEMOGLOBIN (test code = 1003) 9.8 G/DL HEMATOCRIT (test code = 1004) 30.9 % MCV (test code = 1005) 71.2 fL MCH (test code = 1006) 22.6 PG MCHC (test code = 1007) 31.7 G/DL RDW (test code = 1038) 15.6 % NEUTROPHILS (test code = 1008) 46.4 % LYMPHOCYTES (test code = 1010) 46.3 % MONOCYTES (test code = 1011) 5.5 % EOSINOPHILS (test code = 1012) 0.7 % BASOPHILS (test code = 1013) 0.7 % IMMATURE GRANYLOCYTES (test 0.4 % code = 1036) NUCLEATED RBCS (test code = 0.0 /100WBC'S 1065) PLATELET COUNT (test code = 281 K/UL 1015) ABSOLUTE NEUTROPHILS (test code 1.26 K/UL = 1066) ABSOLUTE LYMPHOCYTES (test code 1.26 K/UL = 1067) ABSOLUTE MONOCYTES (test code = 0.15 K/UL 1068) ABSOLUTE EOSINOPHILS (test code 0.02 K/UL = 1040) ABSOLUTE BASOPHILS (test code = 0.02 K/UL 1069) ABS IMMATURE GRANULOCYTES (test 0.01 K/UL code = 1020) ABS NUCLEATED RBCS (test code = 0.00 K/UL 61105) HEMOGLOBIN [id number] 00:00:00 Test Item Value Reference Range Interpretation Comments HEMOGLOBIN A1c (test code = 66649) 6.0 % HEMOGLOBIN [id number] 00:00:00 Test Item Value Reference Range Interpretation Comments HEMOGLOBIN A1c (test code = 40077) 6.0 % HEMOGLOBIN [id number] 00:00:00 Test Item Value Reference Range Interpretation Comments HEMOGLOBIN A1c (test code = 91022) 6.0 % LIPID [id number] 00:00:00 Test Item Value Reference Range Interpretation Comments CHOLESTEROL (test code = 2210) 124 MG/DL TRIGLYCERIDES (test code = 2232) 69 MG/DL HDL CHOLESTEROL (test code = 2220) 39 MG/DL CALC LDL CHOL (test code = 2237) 70 MG/DL RISK RATIO LDL/HDL (test code = 1.79 RATIO 2238) LIPID [id number] 00:00:00 Test Item Value Reference Range Interpretation Comments CHOLESTEROL (test code = 2210) 124 MG/DL TRIGLYCERIDES (test code = 2232) 69 MG/DL HDL CHOLESTEROL (test code = 2220) 39 MG/DL CALC LDL CHOL (test code = 2237) 70 MG/DL RISK RATIO LDL/HDL (test code = 1.79 RATIO 2238) COMPREHENSIVE METABOLIC [id number] 00:00:00 Test Item Value Reference Range Interpretation Comments GLUCOSE (test code = 2217) 77 MG/DL BUN (test code = 2208) 8 MG/DL CREATININE (test code = 2214) 0.67 MG/DL eGFR (2020 CKD-EPI) (test 122 ML/MIN/1.73 code = 39235) CALC BUN/CREAT (test code = 12 RATIO 2235) SODIUM (test code = 2231) 141 MEQ/L POTASSIUM (test code = 2228) 4.0 MEQ/L CHLORIDE (test code = 2215) 102 MEQ/L CARBON DIOXIDE (test code = 22 MEQ/L 2206) CALCIUM (test code = 2209) 9.3 MG/DL PROTEIN, TOTAL (test code = 7.6 G/DL 2228) ALBUMIN (test code = 2201) 4.2 G/DL CALC GLOBULIN (test code = 3.4 G/DL 2240) CALC A/G RATIO (test code = 1.2 RATIO 2234) BILIRUBIN, TOTAL (test code = 0.3 MG/DL 2206) ALKALINE PHOSPHATASE (test 56 U/L code = 2204) AST (test code = 2218) 63 U/L ALT (test code = 2219) 92 U/L COMPREHENSIVE METABOLIC [id number] 00:00:00 Test Item Value Reference Range Interpretation Comments GLUCOSE (test code = 2217) 77 MG/DL BUN (test code = 2208) 8 MG/DL CREATININE (test code = 2214) 0.67 MG/DL eGFR (2020 CKD-EPI) (test 122 ML/MIN/1.73 code = 69162) CALC BUN/CREAT (test code = 12 RATIO 2235) SODIUM (test code = 2231) 141 MEQ/L POTASSIUM (test code = 2228) 4.0 MEQ/L CHLORIDE (test code = 2215) 102 MEQ/L CARBON DIOXIDE (test code = 22 MEQ/L 2205) CALCIUM (test code = 2209) 9.3 MG/DL PROTEIN, TOTAL (test code = 7.6 G/DL 2228) ALBUMIN (test code = 2201) 4.2 G/DL CALC GLOBULIN (test code = 3.4 G/DL 2240) CALC A/G RATIO (test code = 1.2 RATIO 2234) BILIRUBIN, TOTAL (test code = 0.3 MG/DL 2206) ALKALINE PHOSPHATASE (test 56 U/L code = 2204) AST (test code = 2218) 63 U/L ALT (test code = 2219) 92 U/L CBC W/AUTO [id number] 00:00:00 Test Item Value Reference Range Interpretation Comments WBC (test code = 1001) 2.7 K/UL RBC (test code = 1002) 4.34 M/UL HEMOGLOBIN (test code = 1003) 9.8 G/DL HEMATOCRIT (test code = 1004) 30.9 % MCV (test code = 1005) 71.2 fL MCH (test code = 1006) 22.6 PG MCHC (test code = 1007) 31.7 G/DL RDW (test code = 1038) 15.6 % NEUTROPHILS (test code = 1008) 46.4 % LYMPHOCYTES (test code = 1010) 46.3 % MONOCYTES (test code = 1011) 5.5 % EOSINOPHILS (test code = 1012) 0.7 % BASOPHILS (test code = 1013) 0.7 % IMMATURE GRANYLOCYTES (test 0.4 % code = 1036) NUCLEATED RBCS (test code = 0.0 /100WBC'S 1065) PLATELET COUNT (test code = 281 K/UL 1015) ABSOLUTE NEUTROPHILS (test code 1.26 K/UL = 1066) ABSOLUTE LYMPHOCYTES (test code 1.26 K/UL = 1067) ABSOLUTE MONOCYTES (test code = 0.15 K/UL 1068) ABSOLUTE EOSINOPHILS (test code 0.02 K/UL = 1040) ABSOLUTE BASOPHILS (test code = 0.02 K/UL 1069) ABS IMMATURE GRANULOCYTES (test 0.01 K/UL code = 1020) ABS NUCLEATED RBCS (test code = 0.00 K/UL 56201) CBC W/AUTO [id number] 00:00:00 Test Item Value Reference Range Interpretation Comments WBC (test code = 1001) 2.7 K/UL RBC (test code = 1002) 4.34 M/UL HEMOGLOBIN (test code = 1003) 9.8 G/DL HEMATOCRIT (test code = 1004) 30.9 % MCV (test code = 1005) 71.2 fL MCH (test code = 1006) 22.6 PG MCHC (test code = 1007) 31.7 G/DL RDW (test code = 1038) 15.6 % NEUTROPHILS (test code = 1008) 46.4 % LYMPHOCYTES (test code = 1010) 46.3 % MONOCYTES (test code = 1011) 5.5 % EOSINOPHILS (test code = 1012) 0.7 % BASOPHILS (test code = 1013) 0.7 % IMMATURE GRANYLOCYTES (test 0.4 % code = 1036) NUCLEATED RBCS (test code = 0.0 /100WBC'S 1065) PLATELET COUNT (test code = 281 K/UL 1015) ABSOLUTE NEUTROPHILS (test code 1.26 K/UL = 1066) ABSOLUTE LYMPHOCYTES (test code 1.26 K/UL = 1067) ABSOLUTE MONOCYTES (test code = 0.15 K/UL 1068) ABSOLUTE EOSINOPHILS (test code 0.02 K/UL = 1040) ABSOLUTE BASOPHILS (test code = 0.02 K/UL 1069) ABS IMMATURE GRANULOCYTES (test 0.01 K/UL code = 1020) ABS NUCLEATED RBCS (test code = 0.00 K/UL 14762) CBC W/AUTO [id number] 00:00:00 Test Item Value Reference Range Interpretation Comments WBC (test code = 1001) 2.7 K/UL RBC (test code = 1002) 4.34 M/UL HEMOGLOBIN (test code = 1003) 9.8 G/DL HEMATOCRIT (test code = 1004) 30.9 % MCV (test code = 1005) 71.2 fL MCH (test code = 1006) 22.6 PG MCHC (test code = 1007) 31.7 G/DL RDW (test code = 1038) 15.6 % NEUTROPHILS (test code = 1008) 46.4 % LYMPHOCYTES (test code = 1010) 46.3 % MONOCYTES (test code = 1011) 5.5 % EOSINOPHILS (test code = 1012) 0.7 % BASOPHILS (test code = 1013) 0.7 % IMMATURE GRANYLOCYTES (test 0.4 % code = 1036) NUCLEATED RBCS (test code = 0.0 /100WBC'S 1065) PLATELET COUNT (test code = 281 K/UL 1015) ABSOLUTE NEUTROPHILS (test code 1.26 K/UL = 1066) ABSOLUTE LYMPHOCYTES (test code 1.26 K/UL = 1067) ABSOLUTE MONOCYTES (test code = 0.15 K/UL 1068) ABSOLUTE EOSINOPHILS (test code 0.02 K/UL = 1040) ABSOLUTE BASOPHILS (test code = 0.02 K/UL 1069) ABS IMMATURE GRANULOCYTES (test 0.01 K/UL code = 1020) ABS NUCLEATED RBCS (test code = 0.00 K/UL 11819) CBC W/AUTO [id number] 00:00:00 Test Item Value Reference Range Interpretation Comments WBC (test code = 1001) 2.7 K/UL RBC (test code = 1002) 4.34 M/UL HEMOGLOBIN (test code = 1003) 9.8 G/DL HEMATOCRIT (test code = 1004) 30.9 % MCV (test code = 1005) 71.2 fL MCH (test code = 1006) 22.6 PG MCHC (test code = 1007) 31.7 G/DL RDW (test code = 1038) 15.6 % NEUTROPHILS (test code = 1008) 46.4 % LYMPHOCYTES (test code = 1010) 46.3 % MONOCYTES (test code = 1011) 5.5 % EOSINOPHILS (test code = 1012) 0.7 % BASOPHILS (test code = 1013) 0.7 % IMMATURE GRANYLOCYTES (test 0.4 % code = 1036) NUCLEATED RBCS (test code = 0.0 /100WBC'S 1065) PLATELET COUNT (test code = 281 K/UL 1015) ABSOLUTE NEUTROPHILS (test code 1.26 K/UL = 1066) ABSOLUTE LYMPHOCYTES (test code 1.26 K/UL = 1067) ABSOLUTE MONOCYTES (test code = 0.15 K/UL 1068) ABSOLUTE EOSINOPHILS (test code 0.02 K/UL = 1040) ABSOLUTE BASOPHILS (test code = 0.02 K/UL 1069) ABS IMMATURE GRANULOCYTES (test 0.01 K/UL code = 1020) ABS NUCLEATED RBCS (test code = 0.00 K/UL 57066) HEMOGLOBIN [id number] 00:00:00 Test Item Value Reference Range Interpretation Comments HEMOGLOBIN A1c (test code = 38271) 6.0 % HEMOGLOBIN [id number] 00:00:00 Test Item Value Reference Range Interpretation Comments HEMOGLOBIN A1c (test code = 49544) 6.0 % HEMOGLOBIN [id number] 00:00:00 Test Item Value Reference Range Interpretation Comments HEMOGLOBIN A1c (test code = 87948) 6.0 % LIPID [id number] 00:00:00 Test Item Value Reference Range Interpretation Comments CHOLESTEROL (test code = 2210) 124 MG/DL TRIGLYCERIDES (test code = 2232) 69 MG/DL HDL CHOLESTEROL (test code = 2220) 39 MG/DL CALC LDL CHOL (test code = 2237) 70 MG/DL RISK RATIO LDL/HDL (test code = 1.79 RATIO 2238) LIPID [id number] 00:00:00 Test Item Value Reference Range Interpretation Comments CHOLESTEROL (test code = 2210) 124 MG/DL TRIGLYCERIDES (test code = 2232) 69 MG/DL HDL CHOLESTEROL (test code = 2220) 39 MG/DL CALC LDL CHOL (test code = 2237) 70 MG/DL RISK RATIO LDL/HDL (test code = 1.79 RATIO 2238) COMPREHENSIVE METABOLIC [id number] 00:00:00 Test Item Value Reference Range Interpretation Comments GLUCOSE (test code = 2217) 77 MG/DL BUN (test code = 2208) 8 MG/DL CREATININE (test code = 2214) 0.67 MG/DL eGFR (2020 CKD-EPI) (test 122 ML/MIN/1.73 code = 47021) CALC BUN/CREAT (test code = 12 RATIO 2235) SODIUM (test code = 2231) 141 MEQ/L POTASSIUM (test code = 2228) 4.0 MEQ/L CHLORIDE (test code = 2215) 102 MEQ/L CARBON DIOXIDE (test code = 22 MEQ/L 2205) CALCIUM (test code = 2209) 9.3 MG/DL PROTEIN, TOTAL (test code = 7.6 G/DL 2228) ALBUMIN (test code = 2201) 4.2 G/DL CALC GLOBULIN (test code = 3.4 G/DL 2240) CALC A/G RATIO (test code = 1.2 RATIO 2234) BILIRUBIN, TOTAL (test code = 0.3 MG/DL 2207) ALKALINE PHOSPHATASE (test 56 U/L code = 2204) AST (test code = 2218) 63 U/L ALT (test code = 2219) 92 U/L COMPREHENSIVE METABOLIC [id number] 00:00:00 Test Item Value Reference Range Interpretation Comments GLUCOSE (test code = 2217) 77 MG/DL BUN (test code = 2208) 8 MG/DL CREATININE (test code = 2214) 0.67 MG/DL eGFR (2020 CKD-EPI) (test 122 ML/MIN/1.73 code = 80701) CALC BUN/CREAT (test code = 12 RATIO 2235) SODIUM (test code = 2231) 141 MEQ/L POTASSIUM (test code = 2228) 4.0 MEQ/L CHLORIDE (test code = 2215) 102 MEQ/L CARBON DIOXIDE (test code = 22 MEQ/L 2205) CALCIUM (test code = 2209) 9.3 MG/DL PROTEIN, TOTAL (test code = 7.6 G/DL 2228) ALBUMIN (test code = 2201) 4.2 G/DL CALC GLOBULIN (test code = 3.4 G/DL 2240) CALC A/G RATIO (test code = 1.2 RATIO 4) BILIRUBIN, TOTAL (test code = 0.3 MG/DL 2206) ALKALINE PHOSPHATASE (test 56 U/L code = 2204) AST (test code = 2218) 63 U/L ALT (test code = 2219) 92 U/L CBC W/AUTO [id number] 00:00:00 Test Item Value Reference Range Interpretation Comments WBC (test code = 1001) 2.7 K/UL RBC (test code = 1002) 4.34 M/UL HEMOGLOBIN (test code = 1003) 9.8 G/DL HEMATOCRIT (test code = 1004) 30.9 % MCV (test code = 1005) 71.2 fL MCH (test code = 1006) 22.6 PG MCHC (test code = 1007) 31.7 G/DL RDW (test code = 1038) 15.6 % NEUTROPHILS (test code = 1008) 46.4 % LYMPHOCYTES (test code = 1010) 46.3 % MONOCYTES (test code = 1011) 5.5 % EOSINOPHILS (test code = 1012) 0.7 % BASOPHILS (test code = 1013) 0.7 % IMMATURE GRANYLOCYTES (test 0.4 % code = 1036) NUCLEATED RBCS (test code = 0.0 /100WBC'S 1065) PLATELET COUNT (test code = 281 K/UL 1015) ABSOLUTE NEUTROPHILS (test code 1.26 K/UL = 1066) ABSOLUTE LYMPHOCYTES (test code 1.26 K/UL = 1067) ABSOLUTE MONOCYTES (test code = 0.15 K/UL 1068) ABSOLUTE EOSINOPHILS (test code 0.02 K/UL = 1040) ABSOLUTE BASOPHILS (test code = 0.02 K/UL 1069) ABS IMMATURE GRANULOCYTES (test 0.01 K/UL code = 1020) ABS NUCLEATED RBCS (test code = 0.00 K/UL 82358) CBC W/AUTO [id number] 00:00:00 Test Item Value Reference Range Interpretation Comments WBC (test code = 1001) 2.7 K/UL RBC (test code = 1002) 4.34 M/UL HEMOGLOBIN (test code = 1003) 9.8 G/DL HEMATOCRIT (test code = 1004) 30.9 % MCV (test code = 1005) 71.2 fL MCH (test code = 1006) 22.6 PG MCHC (test code = 1007) 31.7 G/DL RDW (test code = 1038) 15.6 % NEUTROPHILS (test code = 1008) 46.4 % LYMPHOCYTES (test code = 1010) 46.3 % MONOCYTES (test code = 1011) 5.5 % EOSINOPHILS (test code = 1012) 0.7 % BASOPHILS (test code = 1013) 0.7 % IMMATURE GRANYLOCYTES (test 0.4 % code = 1036) NUCLEATED RBCS (test code = 0.0 /100WBC'S 1065) PLATELET COUNT (test code = 281 K/UL 1015) ABSOLUTE NEUTROPHILS (test code 1.26 K/UL = 1066) ABSOLUTE LYMPHOCYTES (test code 1.26 K/UL = 1067) ABSOLUTE MONOCYTES (test code = 0.15 K/UL 1068) ABSOLUTE EOSINOPHILS (test code 0.02 K/UL = 1040) ABSOLUTE BASOPHILS (test code = 0.02 K/UL 1069) ABS IMMATURE GRANULOCYTES (test 0.01 K/UL code = 1020) ABS NUCLEATED RBCS (test code = 0.00 K/UL 24550) HEMOGLOBIN [id number] 00:00:00 Test Item Value Reference Range Interpretation Comments HEMOGLOBIN A1c (test code = 98751) 6.0 % HEMOGLOBIN [id number] 00:00:00 Test Item Value Reference Range Interpretation Comments HEMOGLOBIN A1c (test code = 59726) 6.0 % HEMOGLOBIN [id number] 00:00:00 Test Item Value Reference Range Interpretation Comments HEMOGLOBIN A1c (test code = 75125) 6.0 % LIPID [id number] 00:00:00 Test Item Value Reference Range Interpretation Comments CHOLESTEROL (test code = 2210) 124 MG/DL TRIGLYCERIDES (test code = 2232) 69 MG/DL HDL CHOLESTEROL (test code = 2220) 39 MG/DL CALC LDL CHOL (test code = 2237) 70 MG/DL RISK RATIO LDL/HDL (test code = 1.79 RATIO 2238) LIPID [id number] 00:00:00 Test Item Value Reference Range Interpretation Comments CHOLESTEROL (test code = 2210) 124 MG/DL TRIGLYCERIDES (test code = 2232) 69 MG/DL HDL CHOLESTEROL (test code = 2220) 39 MG/DL CALC LDL CHOL (test code = 2237) 70 MG/DL RISK RATIO LDL/HDL (test code = 1.79 RATIO 2238) COMPREHENSIVE METABOLIC [id number] 00:00:00 Test Item Value Reference Range Interpretation Comments GLUCOSE (test code = 2217) 77 MG/DL BUN (test code = 2208) 8 MG/DL CREATININE (test code = 2214) 0.67 MG/DL eGFR (2020 CKD-EPI) (test 122 ML/MIN/1.73 code = 62282) CALC BUN/CREAT (test code = 12 RATIO 2235) SODIUM (test code = 2231) 141 MEQ/L POTASSIUM (test code = 2228) 4.0 MEQ/L CHLORIDE (test code = 2215) 102 MEQ/L CARBON DIOXIDE (test code = 22 MEQ/L 2205) CALCIUM (test code = 2209) 9.3 MG/DL PROTEIN, TOTAL (test code = 7.6 G/DL 2228) ALBUMIN (test code = 2201) 4.2 G/DL CALC GLOBULIN (test code = 3.4 G/DL 2240) CALC A/G RATIO (test code = 1.2 RATIO 2234) BILIRUBIN, TOTAL (test code = 0.3 MG/DL 2206) ALKALINE PHOSPHATASE (test 56 U/L code = 2204) AST (test code = 2218) 63 U/L ALT (test code = 2219) 92 U/L COMPREHENSIVE METABOLIC [id number] 00:00:00 Test Item Value Reference Range Interpretation Comments GLUCOSE (test code = 2217) 77 MG/DL BUN (test code = 2208) 8 MG/DL CREATININE (test code = 2214) 0.67 MG/DL eGFR (2020 CKD-EPI) (test 122 ML/MIN/1.73 code = 70115) CALC BUN/CREAT (test code = 12 RATIO 2235) SODIUM (test code = 2231) 141 MEQ/L POTASSIUM (test code = 2228) 4.0 MEQ/L CHLORIDE (test code = 2215) 102 MEQ/L CARBON DIOXIDE (test code = 22 MEQ/L 220) CALCIUM (test code = 2209) 9.3 MG/DL PROTEIN, TOTAL (test code = 7.6 G/DL 2229) ALBUMIN (test code = 2201) 4.2 G/DL CALC GLOBULIN (test code = 3.4 G/DL 2240) CALC A/G RATIO (test code = 1.2 RATIO 2234) BILIRUBIN, TOTAL (test code = 0.3 MG/DL 2206) ALKALINE PHOSPHATASE (test 56 U/L code = 2204) AST (test code = 2218) 63 U/L ALT (test code = 2219) 92 U/L MR KNEE LEFT WO [id number] 21:23:01 Stable MRI with lateral patellar subluxation [...] reviewed this study and agree with the abovereport.[facility] 2020-03-16 13:46:56 Large effusion. No fracture. EXAM: XR KNEE 3 VW LEFT HISTORY: new onset of instablity left knee with 2 falls in last 4 wks COMPARISON: None FINDINGS: Imaging of the left knee demonstrates a moderate si zed effusion. Alignmentis maintained. There is mild depression of the medial tibial plateau on thePAview. No fracture is appreciated. [facility], Radiant Results Inft User - 03/16/2020 8:48 AM CDTEXAM:XR KNEE 3 VW LEFTHISTORY:new onset of instablity left knee with 2 falls in last 4 wks COMPARISON:NoneFINDINGS: Imaging of the left knee demonstrates a moderate sized effusion. Alignmentis maintained. There is mild depression of the medial tibial plateau on thePA view. No fracture is appreciated.IMPRESSIONLarge effusion.No fracture.[facility], [id number] 00:00:00 Test Item Value Reference Range Interpretation Comments HCG, QUANTITATIVE (test code = <5 MIU/ML 2506) HCG, [id number] 00:00:00 Test Item Value Reference Range Interpretation Comments HCG, QUANTITATIVE (test code = <5 MIU/ML 2506) HCG, [id number] 00:00:00 Test Item Value Reference Range Interpretation Comments HCG, QUANTITATIVE (test code = <5 MIU/ML 2506) HCG, [id number] 00:00:00 Test Item Value Reference Range Interpretation Comments HCG, QUANTITATIVE (test code = <5 MIU/ML 2506) HCG, [id number] 00:00:00 Test Item Value Reference Range Interpretation Comments HCG, QUANTITATIVE (test code = <5 MIU/ML 2506) HCG, [id number] 00:00:00 Test Item Value Reference Range Interpretation Comments HCG, QUANTITATIVE (test code = <5 MIU/ML 2506) HCG, [id number] 00:00:00 Test Item Value Reference Range Interpretation Comments HCG, QUANTITATIVE (test code = <5 MIU/ML 2506) HCG, [id number] 00:00:00 Test Item Value Reference Range Interpretation Comments HCG, QUANTITATIVE (test code = <5 MIU/ML 2506) HCG, [id number] 00:00:00 Test Item Value Reference Range Interpretation Comments HCG, QUANTITATIVE (test code = <5 MIU/ML 2506) HCG, [id number] 00:00:00 Test Item Value Reference Range Interpretation Comments HCG, QUANTITATIVE (test TEST NOT PERFORMED code = 2506) MIU/ML HCG, [id number] 00:00:00 Test Item Value Reference Range Interpretation Comments HCG, QUANTITATIVE (test TEST NOT PERFORMED code = 2506) MIU/ML HCG, [id number] 00:00:00 Test Item Value Reference Range Interpretation Comments HCG, QUANTITATIVE (test TEST NOT PERFORMED code = 2506) MIU/ML HCG, [id number] 00:00:00 Test Item Value Reference Range Interpretation Comments HCG, QUANTITATIVE (test TEST NOT PERFORMED code = 2506) MIU/ML HCG, [id number] 00:00:00 Test Item Value Reference Range Interpretation Comments HCG, QUANTITATIVE (test TEST NOT PERFORMED code = 2506) MIU/ML HCG, [id number] 00:00:00 Test Item Value Reference Range Interpretation Comments HCG, QUANTITATIVE (test TEST NOT PERFORMED code = 2506) MIU/ML HCG, [id number] 00:00:00 Test Item Value Reference Range Interpretation Comments HCG, QUANTITATIVE (test TEST NOT PERFORMED code = 2506) MIU/ML HCG, [id number] 00:00:00 Test Item Value Reference Range Interpretation Comments HCG, QUANTITATIVE (test TEST NOT PERFORMED code = 2506) MIU/ML HCG, [id number] 00:00:00 Test Item Value Reference Range Interpretation Comments HCG, QUANTITATIVE (test TEST NOT PERFORMED code = 2506) MIU/ML CHLAMYDIA, AMPLIFIED, [id number] 00:00:00 Test Item Value Reference Range Interpretation Comments CHLAMYDIA, TMA (test code = 59437) NEGATIVE CHLAMYDIA, AMPLIFIED, [id number] 00:00:00 Test Item Value Reference Range Interpretation Comments CHLAMYDIA, TMA (test code = 70207) NEGATIVE GC, AMPLIFIED, [id number] 00:00:00 Test Item Value Reference Range Interpretation Comments GONORRHEA, TMA (test code = 22823) NEGATIVE GC, AMPLIFIED, [id number] 00:00:00 Test Item Value Reference Range Interpretation Comments GONORRHEA, TMA (test code = 26939) NEGATIVE CHLAMYDIA, AMPLIFIED, [id number] 00:00:00 Test Item Value Reference Range Interpretation Comments CHLAMYDIA, TMA (test code = 90794) NEGATIVE CHLAMYDIA, AMPLIFIED, [id number] 00:00:00 Test Item Value Reference Range Interpretation Comments CHLAMYDIA, TMA (test code = 70990) NEGATIVE GC, AMPLIFIED, [id number] 00:00:00 Test Item Value Reference Range Interpretation Comments GONORRHEA, TMA (test code = 79573) NEGATIVE GC, AMPLIFIED, [id number] 00:00:00 Test Item Value Reference Range Interpretation Comments GONORRHEA, TMA (test code = 06224) NEGATIVE CHLAMYDIA, AMPLIFIED, [id number] 00:00:00 Test Item Value Reference Range Interpretation Comments CHLAMYDIA, TMA (test code = 68828) NEGATIVE CHLAMYDIA, AMPLIFIED, [id number] 00:00:00 Test Item Value Reference Range Interpretation Comments CHLAMYDIA, TMA (test code = 38655) NEGATIVE GC, AMPLIFIED, [id number] 00:00:00 Test Item Value Reference Range Interpretation Comments GONORRHEA, TMA (test code = 39270) NEGATIVE GC, AMPLIFIED, [id number] 00:00:00 Test Item Value Reference Range Interpretation Comments GONORRHEA, TMA (test code = 77410) NEGATIVE HIV AB/AG COMBO RFLX [id number] 00:00:00 Test Item Value Reference Range Interpretation Comments HIV 1/2 4TH GEN, RFLX CONF (test NON-REACTIVE code = 3514) HIV AB/AG COMBO RFLX [id number] 00:00:00 Test Item Value Reference Range Interpretation Comments HIV 1/2 4TH GEN, RFLX CONF (test NON-REACTIVE code = 3514) ACUTE HEPATITIS [id number] 00:00:00 Test Item Value Reference Range Interpretation Comments HEPATITIS A IgM (test code = NON-REACTIVE 59520) HEPATITIS B CORE IgM (test code NON-REACTIVE = 4644) HEPATITIS B SURF AG (test code = NON-REACTIVE 2739) HEPATITIS C ANTIBODY (test code NON-REACTIVE = 4675) INTERPRETATION HEPATITIS A: (NOTE) (test code = 2552) INTERPRETATION HEPATITIS B: (NOTE) (test code = 02869) INTERPRETATION HEPATITIS C: (NOTE) (test code = 34440) ACUTE HEPATITIS [id number] 00:00:00 Test Item Value Reference Range Interpretation Comments HEPATITIS A IgM (test code = NON-REACTIVE 78575) HEPATITIS B CORE IgM (test code NON-REACTIVE = 4644) HEPATITIS B SURF AG (test code = NON-REACTIVE 2739) HEPATITIS C ANTIBODY (test code NON-REACTIVE = 4675) INTERPRETATION HEPATITIS A: (NOTE) (test code = 2552) INTERPRETATION HEPATITIS B: (NOTE) (test code = 03272) INTERPRETATION HEPATITIS C: (NOTE) (test code = 67551) [id number] 00:00:00 Test Item Value Reference Range Interpretation Comments RPR RESULT (test code = NON-REACTIVE 3501) RPR TITER (test code = 3500) NOT INDIC. TITER [id number] 00:00:00 Test Item Value Reference Range Interpretation Comments RPR RESULT (test code = NON-REACTIVE 3501) RPR TITER (test code = 3500) NOT INDIC. TITER [id number] 00:00:00 Test Item Value Reference Range Interpretation Comments RPR RESULT (test code = NON-REACTIVE 3501) RPR TITER (test code = 3500) NOT INDIC. TITER HIV AB/AG COMBO RFLX [id number] 00:00:00 Test Item Value Reference Range Interpretation Comments HIV 1/2 4TH GEN, RFLX CONF (test NON-REACTIVE code = 3514) HIV AB/AG COMBO RFLX [id number] 00:00:00 Test Item Value Reference Range Interpretation Comments HIV 1/2 4TH GEN, RFLX CONF (test NON-REACTIVE code = 3514) HIV AB/AG COMBO RFLX [id number] 00:00:00 Test Item Value Reference Range Interpretation Comments HIV 1/2 4TH GEN, RFLX CONF (test NON-REACTIVE code = 3514) ACUTE HEPATITIS [id number] 00:00:00 Test Item Value Reference Range Interpretation Comments HEPATITIS A IgM (test code = NON-REACTIVE 18548) HEPATITIS B CORE IgM (test code NON-REACTIVE = 4644) HEPATITIS B SURF AG (test code = NON-REACTIVE 2739) HEPATITIS C ANTIBODY (test code NON-REACTIVE = 4675) INTERPRETATION HEPATITIS A: (NOTE) (test code = 2552) INTERPRETATION HEPATITIS B: (NOTE) (test code = 09322) INTERPRETATION HEPATITIS C: (NOTE) (test code = 37100) ACUTE HEPATITIS [id number] 00:00:00 Test Item Value Reference Range Interpretation Comments HEPATITIS A IgM (test code = NON-REACTIVE 44783) HEPATITIS B CORE IgM (test code NON-REACTIVE = 4644) HEPATITIS B SURF AG (test code = NON-REACTIVE 2739) HEPATITIS C ANTIBODY (test code NON-REACTIVE = 4675) INTERPRETATION HEPATITIS A: (NOTE) (test code = 2552) INTERPRETATION HEPATITIS B: (NOTE) (test code = 65121) INTERPRETATION HEPATITIS C: (NOTE) (test code = 13939) [id number] 00:00:00 Test Item Value Reference Range Interpretation Comments RPR RESULT (test code = NON-REACTIVE 3501) RPR TITER (test code = 3500) NOT INDIC. TITER [id number] 00:00:00 Test Item Value Reference Range Interpretation Comments RPR RESULT (test code = NON-REACTIVE 3501) RPR TITER (test code = 3500) NOT INDIC. TITER [id number] 00:00:00 Test Item Value Reference Range Interpretation Comments RPR RESULT (test code = NON-REACTIVE 3501) RPR TITER (test code = 3500) NOT INDIC. TITER HIV AB/AG COMBO RFLX [id number] 00:00:00 Test Item Value Reference Range Interpretation Comments HIV 1/2 4TH GEN, RFLX CONF (test NON-REACTIVE code = 3514) ACUTE HEPATITIS [id number] 00:00:00 Test Item Value Reference Range Interpretation Comments HEPATITIS A IgM (test code = NON-REACTIVE 32001) HEPATITIS B CORE IgM (test code NON-REACTIVE = 4644) HEPATITIS B SURF AG (test code = NON-REACTIVE 2739) HEPATITIS C ANTIBODY (test code NON-REACTIVE = 4675) INTERPRETATION HEPATITIS A: (NOTE) (test code = 2552) INTERPRETATION HEPATITIS B: (NOTE) (test code = 92027) INTERPRETATION HEPATITIS C: (NOTE) (test code = 50204) ACUTE HEPATITIS [id number] 00:00:00 Test Item Value Reference Range Interpretation Comments HEPATITIS A IgM (test code = NON-REACTIVE 19998) HEPATITIS B CORE IgM (test code NON-REACTIVE = 4644) HEPATITIS B SURF AG (test code = NON-REACTIVE 2739) HEPATITIS C ANTIBODY (test code NON-REACTIVE = 4675) INTERPRETATION HEPATITIS A: (NOTE) (test code = 2552) INTERPRETATION HEPATITIS B: (NOTE) (test code = 09272) INTERPRETATION HEPATITIS C: (NOTE) (test code = 46856) [id number] 00:00:00 Test Item Value Reference Range Interpretation Comments RPR RESULT (test code = NON-REACTIVE 3501) RPR TITER (test code = 3500) NOT INDIC. TITER [id number] 00:00:00 Test Item Value Reference Range Interpretation Comments RPR RESULT (test code = NON-REACTIVE 3501) RPR TITER (test code = 3500) NOT INDIC. TITER [id number] 00:00:00 Test Item Value Reference Range Interpretation Comments RPR RESULT (test code = NON-REACTIVE 3501) RPR TITER (test code = 3500) NOT INDIC. TITER HIV AB/AG COMBO RFLX [id number] 00:00:00 Test Item Value Reference Range Interpretation Comments HIV 1/2 4TH GEN, RFLX CONF (test NON-REACTIVE code = 3514) HIV AB/AG COMBO RFLX [id number] 00:00:00 Test Item Value Reference Range Interpretation Comments HIV 1/2 4TH GEN, RFLX CONF (test NON-REACTIVE code = 3514) ACUTE HEPATITIS [id number] 00:00:00 Test Item Value Reference Range Interpretation Comments HEPATITIS A IgM (test code = NON-REACTIVE 38635) HEPATITIS B CORE IgM (test code NON-REACTIVE = 4644) HEPATITIS B SURF AG (test code = NON-REACTIVE 2739) HEPATITIS C ANTIBODY (test code NON-REACTIVE = 4675) HCV INDEX (test code = 84687) 0.13 INTERPRETATION HEPATITIS A: (NOTE) (test code = 2552) INTERPRETATION HEPATITIS B: (NOTE) (test code = 97032) INTERPRETATION HEPATITIS C: (NOTE) (test code = 96393) ACUTE HEPATITIS [id number] 00:00:00 Test Item Value Reference Range Interpretation Comments HEPATITIS A IgM (test code = NON-REACTIVE 91062) HEPATITIS B CORE IgM (test code NON-REACTIVE = 4644) HEPATITIS B SURF AG (test code = NON-REACTIVE 2739) HEPATITIS C ANTIBODY (test code NON-REACTIVE = 4675) HCV INDEX (test code = 18247) 0.13 INTERPRETATION HEPATITIS A: (NOTE) (test code = 2552) INTERPRETATION HEPATITIS B: (NOTE) (test code = 44156) INTERPRETATION HEPATITIS C: (NOTE) (test code = 96390) GC AND CHLAMYDIA, AMPLIFIED, [id number] 00:00:00 Test Item Value Reference Range Interpretation Comments GONORRHEA, TMA (test code = 35368) NEGATIVE CHLAMYDIA, TMA (test code = 10712) NEGATIVE GC AND CHLAMYDIA, AMPLIFIED, [id number] 00:00:00 Test Item Value Reference Range Interpretation Comments GONORRHEA, TMA (test code = 32555) NEGATIVE CHLAMYDIA, TMA (test code = 58765) NEGATIVE [id number] 00:00:00 Test Item Value Reference Range Interpretation Comments RPR RESULT (test code = NON-REACTIVE 3501) RPR TITER (test code = 3500) NOT INDIC. TITER [id number] 00:00:00 Test Item Value Reference Range Interpretation Comments RPR RESULT (test code = NON-REACTIVE 3501) RPR TITER (test code = 3500) NOT INDIC. TITER [id number] 00:00:00 Test Item Value Reference Range Interpretation Comments RPR RESULT (test code = NON-REACTIVE 3501) RPR TITER (test code = 3500) NOT INDIC. TITER HIV AB/AG COMBO RFLX [id number] 00:00:00 Test Item Value Reference Range Interpretation Comments HIV 1/2 4TH GEN, RFLX CONF (test NON-REACTIVE code = 3514) HIV AB/AG COMBO RFLX [id number] 00:00:00 Test Item Value Reference Range Interpretation Comments HIV 1/2 4TH GEN, RFLX CONF (test NON-REACTIVE code = 3514) HIV AB/AG COMBO RFLX [id number] 00:00:00 Test Item Value Reference Range Interpretation Comments HIV 1/2 4TH GEN, RFLX CONF (test NON-REACTIVE code = 3514) ACUTE HEPATITIS [id number] 00:00:00 Test Item Value Reference Range Interpretation Comments HEPATITIS A IgM (test code = NON-REACTIVE 63258) HEPATITIS B CORE IgM (test code NON-REACTIVE = 4644) HEPATITIS B SURF AG (test code = NON-REACTIVE 2739) HEPATITIS C ANTIBODY (test code NON-REACTIVE = 4675) HCV INDEX (test code = 57539) 0.13 INTERPRETATION HEPATITIS A: (NOTE) (test code = 2552) INTERPRETATION HEPATITIS B: (NOTE) (test code = 29218) INTERPRETATION HEPATITIS C: (NOTE) (test code = 10306) ACUTE HEPATITIS [id number] 00:00:00 Test Item Value Reference Range Interpretation Comments HEPATITIS A IgM (test code = NON-REACTIVE 04902) HEPATITIS B CORE IgM (test code NON-REACTIVE = 4644) HEPATITIS B SURF AG (test code = NON-REACTIVE 2739) HEPATITIS C ANTIBODY (test code NON-REACTIVE = 4675) HCV INDEX (test code = 05234) 0.13 INTERPRETATION HEPATITIS A: (NOTE) (test code = 2552) INTERPRETATION HEPATITIS B: (NOTE) (test code = 60991) INTERPRETATION HEPATITIS C: (NOTE) (test code = 05668) HIV AB/AG COMBO RFLX [id number] 00:00:00 Test Item Value Reference Range Interpretation Comments HIV 1/2 4TH GEN, RFLX CONF (test NON-REACTIVE code = 3514) GC AND CHLAMYDIA, AMPLIFIED, [id number] 00:00:00 Test Item Value Reference Range Interpretation Comments GONORRHEA, TMA (test code = 37100) NEGATIVE CHLAMYDIA, TMA (test code = 19138) NEGATIVE GC AND CHLAMYDIA, AMPLIFIED, [id number] 00:00:00 Test Item Value Reference Range Interpretation Comments GONORRHEA, TMA (test code = 74289) NEGATIVE CHLAMYDIA, TMA (test code = 86858) NEGATIVE [id number] 00:00:00 Test Item Value Reference Range Interpretation Comments RPR RESULT (test code = NON-REACTIVE 3501) RPR TITER (test code = 3500) NOT INDIC. TITER [id number] 00:00:00 Test Item Value Reference Range Interpretation Comments RPR RESULT (test code = NON-REACTIVE 3501) RPR TITER (test code = 3500) NOT INDIC. TITER [id number] 00:00:00 Test Item Value Reference Range Interpretation Comments RPR RESULT (test code = NON-REACTIVE 3501) RPR TITER (test code = 3500) NOT INDIC. TITER ACUTE HEPATITIS [id number] 00:00:00 Test Item Value Reference Range Interpretation Comments HEPATITIS A IgM (test code = NON-REACTIVE 67494) HEPATITIS B CORE IgM (test code NON-REACTIVE = 4644) HEPATITIS B SURF AG (test code = NON-REACTIVE 2739) HEPATITIS C ANTIBODY (test code NON-REACTIVE = 4675) HCV INDEX (test code = 66343) 0.13 INTERPRETATION HEPATITIS A: (NOTE) (test code = 2552) INTERPRETATION HEPATITIS B: (NOTE) (test code = 73025) INTERPRETATION HEPATITIS C: (NOTE) (test code = 02393) ACUTE HEPATITIS [id number] 00:00:00 Test Item Value Reference Range Interpretation Comments HEPATITIS A IgM (test code = NON-REACTIVE 75845) HEPATITIS B CORE IgM (test code NON-REACTIVE = 4644) HEPATITIS B SURF AG (test code = NON-REACTIVE 2739) HEPATITIS C ANTIBODY (test code NON-REACTIVE = 4675) HCV INDEX (test code = 71451) 0.13 INTERPRETATION HEPATITIS A: (NOTE) (test code = 2552) INTERPRETATION HEPATITIS B: (NOTE) (test code = 28252) INTERPRETATION HEPATITIS C: (NOTE) (test code = 00100) GC AND CHLAMYDIA, AMPLIFIED, [id number] 00:00:00 Test Item Value Reference Range Interpretation Comments GONORRHEA, TMA (test code = 38750) NEGATIVE CHLAMYDIA, TMA (test code = 70911) NEGATIVE GC AND CHLAMYDIA, AMPLIFIED, [id number] 00:00:00 Test Item Value Reference Range Interpretation Comments GONORRHEA, TMA (test code = 06745) NEGATIVE CHLAMYDIA, TMA (test code = 01292) NEGATIVE [id number] 00:00:00 Test Item Value Reference Range Interpretation Comments RPR RESULT (test code = NON-REACTIVE 3501) RPR TITER (test code = 3500) NOT INDIC. TITER [id number] 00:00:00 Test Item Value Reference Range Interpretation Comments RPR RESULT (test code = NON-REACTIVE 3501) RPR TITER (test code = 3500) NOT INDIC. TITER [id number] 00:00:00 Test Item Value Reference Range Interpretation Comments RPR RESULT (test code = NON-REACTIVE 3501) RPR TITER (test code = 3500) NOT INDIC. TITER [id number] 00:00:00 Test Item Value Reference Range Interpretation Comments RPR RESULT (test code = NON-REACTIVE 3501) RPR TITER (test code = 3500) NOT INDIC. TITER [id number] 00:00:00 Test Item Value Reference Range Interpretation Comments RPR RESULT (test code = NON-REACTIVE 3501) RPR TITER (test code = 3500) NOT INDIC. TITER [id number] 00:00:00 Test Item Value Reference Range Interpretation Comments RPR RESULT (test code = NON-REACTIVE 3501) RPR TITER (test code = 3500) NOT INDIC. TITER HIV AB/AG COMBO RFLX [id number] 00:00:00 Test Item Value Reference Range Interpretation Comments HIV 1/2 4TH GEN, RFLX CONF (test NON-REACTIVE code = 3514) HIV AB/AG COMBO RFLX [id number] 00:00:00 Test Item Value Reference Range Interpretation Comments HIV 1/2 4TH GEN, RFLX CONF (test NON-REACTIVE code = 3514) [id number] 00:00:00 Test Item Value Reference Range Interpretation Comments RPR RESULT (test code = NON-REACTIVE 3501) RPR TITER (test code = 3500) NOT INDIC. TITER [id number] 00:00:00 Test Item Value Reference Range Interpretation Comments RPR RESULT (test code = NON-REACTIVE 3501) RPR TITER (test code = 3500) NOT INDIC. TITER [id number] 00:00:00 Test Item Value Reference Range Interpretation Comments RPR RESULT (test code = NON-REACTIVE 3501) RPR TITER (test code = 3500) NOT INDIC. TITER [id number] 00:00:00 Test Item Value Reference Range Interpretation Comments RPR RESULT (test code = NON-REACTIVE 3501) RPR TITER (test code = 3500) NOT INDIC. TITER HIV AB/AG COMBO RFLX [id number] 00:00:00 Test Item Value Reference Range Interpretation Comments HIV 1/2 4TH GEN, RFLX CONF (test NON-REACTIVE code = 3514) HIV AB/AG COMBO RFLX [id number] 00:00:00 Test Item Value Reference Range Interpretation Comments HIV 1/2 4TH GEN, RFLX CONF (test NON-REACTIVE code = 3514) [id number] 00:00:00 Test Item Value Reference Range Interpretation Comments RPR RESULT (test code = NON-REACTIVE 3501) RPR TITER (test code = 3500) NOT INDIC. TITER [id number] 00:00:00 Test Item Value Reference Range Interpretation Comments RPR RESULT (test code = NON-REACTIVE 3501) RPR TITER (test code = 3500) NOT INDIC. TITER HIV AB/AG COMBO RFLX [id number] 00:00:00 Test Item Value Reference Range Interpretation Comments HIV 1/2 4TH GEN, RFLX CONF (test NON-REACTIVE code = 3514) HIV AB/AG COMBO RFLX [id number] 00:00:00 Test Item Value Reference Range Interpretation Comments HIV 1/2 4TH GEN, RFLX CONF (test NON-REACTIVE code = 3514) GC AND CHLAMYDIA, AMPLIFIED, [id number] 00:00:00 Test Item Value Reference Range Interpretation Comments GONORRHEA, TMA (test code = 59734) NEGATIVE CHLAMYDIA, TMA (test code = 52179) NEGATIVE GC AND CHLAMYDIA, AMPLIFIED, [id number] 00:00:00 Test Item Value Reference Range Interpretation Comments GONORRHEA, TMA (test code = 94518) NEGATIVE CHLAMYDIA, TMA (test code = 13270) NEGATIVE GC AND CHLAMYDIA, AMPLIFIED, [id number] 00:00:00 Test Item Value Reference Range Interpretation Comments GONORRHEA, TMA (test code = 53986) NEGATIVE CHLAMYDIA, TMA (test code = 10946) NEGATIVE GC AND CHLAMYDIA, AMPLIFIED, [id number] 00:00:00 Test Item Value Reference Range Interpretation Comments GONORRHEA, TMA (test code = 98242) NEGATIVE CHLAMYDIA, TMA (test code = 36417) NEGATIVE GC AND CHLAMYDIA, AMPLIFIED, [id number] 00:00:00 Test Item Value Reference Range Interpretation Comments GONORRHEA, TMA (test code = 34086) NEGATIVE CHLAMYDIA, TMA (test code = 51517) NEGATIVE GC AND CHLAMYDIA, AMPLIFIED, [id number] 00:00:00 Test Item Value Reference Range Interpretation Comments GONORRHEA, TMA (test code = 94509) NEGATIVE CHLAMYDIA, TMA (test code = 18606) NEGATIVE COMPREHENSIVE METABOLIC [id number] 00:00:00 Test Item Value Reference Range Interpretation Comments GLUCOSE (test code = 2217) 127 MG/DL BUN (test code = 2208) 5 MG/DL CREATININE (test code = 2214) 0.58 MG/DL eGFR AMER. (test code 148 ML/MIN/1.73 = 62991) eGFR NON- AMER. (test 128 ML/MIN/1.73 code = 45343) CALC BUN/CREAT (test code = 9 RATIO 2235) SODIUM (test code = 2231) 139 MEQ/L POTASSIUM (test code = 2228) 3.7 MEQ/L CHLORIDE (test code = 2215) 99 MEQ/L CARBON DIOXIDE (test code = 24 MEQ/L 2206) CALCIUM (test code = 2209) 9.9 MG/DL PROTEIN, TOTAL (test code = 8.1 G/DL 222) ALBUMIN (test code = 2201) 4.3 G/DL CALC GLOBULIN (test code = 3.8 G/DL 2240) CALC A/G RATIO (test code = 1.1 RATIO 2234) BILIRUBIN, TOTAL (test code = 0.4 MG/DL 2206) ALKALINE PHOSPHATASE (test 83 U/L code = 220) AST (test code = 2218) 21 U/L ALT (test code = 2219) 18 U/L COMPREHENSIVE METABOLIC [id number] 00:00:00 Test Item Value Reference Range Interpretation Comments GLUCOSE (test code = 2217) 127 MG/DL BUN (test code = 2208) 5 MG/DL CREATININE (test code = 2214) 0.58 MG/DL eGFR AMER. (test code 148 ML/MIN/1.73 = 35234) eGFR NON- AMER. (test 128 ML/MIN/1.73 code = 80164) CALC BUN/CREAT (test code = 9 RATIO 2235) SODIUM (test code = 2231) 139 MEQ/L POTASSIUM (test code = 2228) 3.7 MEQ/L CHLORIDE (test code = 2215) 99 MEQ/L CARBON DIOXIDE (test code = 24 MEQ/L 2206) CALCIUM (test code = 2209) 9.9 MG/DL PROTEIN, TOTAL (test code = 8.1 G/DL 9) ALBUMIN (test code = 2201) 4.3 G/DL CALC GLOBULIN (test code = 3.8 G/DL 2240) CALC A/G RATIO (test code = 1.1 RATIO 2234) BILIRUBIN, TOTAL (test code = 0.4 MG/DL 2206) ALKALINE PHOSPHATASE (test 83 U/L code = 2204) AST (test code = 2218) 21 U/L ALT (test code = 2219) 18 U/L LIPID [id number] 00:00:00 Test Item Value Reference Range Interpretation Comments CHOLESTEROL (test code = 2210) 186 MG/DL TRIGLYCERIDES (test code = 2232) 106 MG/DL HDL CHOLESTEROL (test code = 2220) 54 MG/DL CALC LDL CHOL (test code = 2237) 111 MG/DL RISK RATIO LDL/HDL (test code = 2.05 RATIO 2238) LIPID [id number] 00:00:00 Test Item Value Reference Range Interpretation Comments CHOLESTEROL (test code = 2210) 186 MG/DL TRIGLYCERIDES (test code = 2232) 106 MG/DL HDL CHOLESTEROL (test code = 2220) 54 MG/DL CALC LDL CHOL (test code = 2237) 111 MG/DL RISK RATIO LDL/HDL (test code = 2.05 RATIO 2238) COMPREHENSIVE METABOLIC [id number] 00:00:00 Test Item Value Reference Range Interpretation Comments GLUCOSE (test code = 2217) 127 MG/DL BUN (test code = 2208) 5 MG/DL CREATININE (test code = 2214) 0.58 MG/DL eGFR AMER. (test code 148 ML/MIN/1.73 = 13096) eGFR NON- AMER. (test 128 ML/MIN/1.73 code = 29662) CALC BUN/CREAT (test code = 9 RATIO 2235) SODIUM (test code = 2231) 139 MEQ/L POTASSIUM (test code = 2228) 3.7 MEQ/L CHLORIDE (test code = 2215) 99 MEQ/L CARBON DIOXIDE (test code = 24 MEQ/L 2205) CALCIUM (test code = 2209) 9.9 MG/DL PROTEIN, TOTAL (test code = 8.1 G/DL 2228) ALBUMIN (test code = 2201) 4.3 G/DL CALC GLOBULIN (test code = 3.8 G/DL 2240) CALC A/G RATIO (test code = 1.1 RATIO 2234) BILIRUBIN, TOTAL (test code = 0.4 MG/DL 2206) ALKALINE PHOSPHATASE (test 83 U/L code = 2204) AST (test code = 2218) 21 U/L ALT (test code = 2219) 18 U/L COMPREHENSIVE METABOLIC [id number] 00:00:00 Test Item Value Reference Range Interpretation Comments GLUCOSE (test code = 2217) 127 MG/DL BUN (test code = 2208) 5 MG/DL CREATININE (test code = 2214) 0.58 MG/DL eGFR AMER. (test code 148 ML/MIN/1.73 = 08993) eGFR NON- AMER. (test 128 ML/MIN/1.73 code = 34687) CALC BUN/CREAT (test code = 9 RATIO 2235) SODIUM (test code = 2231) 139 MEQ/L POTASSIUM (test code = 2228) 3.7 MEQ/L CHLORIDE (test code = 2215) 99 MEQ/L CARBON DIOXIDE (test code = 24 MEQ/L 220) CALCIUM (test code = 2209) 9.9 MG/DL PROTEIN, TOTAL (test code = 8.1 G/DL 2228) ALBUMIN (test code = 2201) 4.3 G/DL CALC GLOBULIN (test code = 3.8 G/DL 2240) CALC A/G RATIO (test code = 1.1 RATIO 2234) BILIRUBIN, TOTAL (test code = 0.4 MG/DL 2206) ALKALINE PHOSPHATASE (test 83 U/L code = 2204) AST (test code = 2218) 21 U/L ALT (test code = 2219) 18 U/L COMPREHENSIVE METABOLIC [id number] 00:00:00 Test Item Value Reference Range Interpretation Comments GLUCOSE (test code = 2217) 127 MG/DL BUN (test code = 2208) 5 MG/DL CREATININE (test code = 2214) 0.58 MG/DL eGFR AMER. (test code 148 ML/MIN/1.73 = 17494) eGFR NON- AMER. (test 128 ML/MIN/1.73 code = 69362) CALC BUN/CREAT (test code = 9 RATIO 2235) SODIUM (test code = 2231) 139 MEQ/L POTASSIUM (test code = 2228) 3.7 MEQ/L CHLORIDE (test code = 2215) 99 MEQ/L CARBON DIOXIDE (test code = 24 MEQ/L 2206) CALCIUM (test code = 2209) 9.9 MG/DL PROTEIN, TOTAL (test code = 8.1 G/DL 2228) ALBUMIN (test code = 2201) 4.3 G/DL CALC GLOBULIN (test code = 3.8 G/DL 2240) CALC A/G RATIO (test code = 1.1 RATIO 2234) BILIRUBIN, TOTAL (test code = 0.4 MG/DL 2206) ALKALINE PHOSPHATASE (test 83 U/L code = 2204) AST (test code = 2218) 21 U/L ALT (test code = 2219) 18 U/L LIPID [id number] 00:00:00 Test Item Value Reference Range Interpretation Comments CHOLESTEROL (test code = 2210) 186 MG/DL TRIGLYCERIDES (test code = 2232) 106 MG/DL HDL CHOLESTEROL (test code = 2220) 54 MG/DL CALC LDL CHOL (test code = 2237) 111 MG/DL RISK RATIO LDL/HDL (test code = 2.05 RATIO 2238) LIPID [id number] 00:00:00 Test Item Value Reference Range Interpretation Comments CHOLESTEROL (test code = 2210) 186 MG/DL TRIGLYCERIDES (test code = 2232) 106 MG/DL HDL CHOLESTEROL (test code = 2220) 54 MG/DL CALC LDL CHOL (test code = 2237) 111 MG/DL RISK RATIO LDL/HDL (test code = 2.05 RATIO 2238) COMPREHENSIVE METABOLIC [id number] 00:00:00 Test Item Value Reference Range Interpretation Comments GLUCOSE (test code = 2217) 127 MG/DL BUN (test code = 2208) 5 MG/DL CREATININE (test code = 2214) 0.58 MG/DL eGFR AMER. (test code 148 ML/MIN/1.73 = 54022) eGFR NON- AMER. (test 128 ML/MIN/1.73 code = 65721) CALC BUN/CREAT (test code = 9 RATIO 2235) SODIUM (test code = 2231) 139 MEQ/L POTASSIUM (test code = 2228) 3.7 MEQ/L CHLORIDE (test code = 2215) 99 MEQ/L CARBON DIOXIDE (test code = 24 MEQ/L 2205) CALCIUM (test code = 2209) 9.9 MG/DL PROTEIN, TOTAL (test code = 8.1 G/DL 2228) ALBUMIN (test code = 2201) 4.3 G/DL CALC GLOBULIN (test code = 3.8 G/DL 0) CALC A/G RATIO (test code = 1.1 RATIO 223) BILIRUBIN, TOTAL (test code = 0.4 MG/DL 2207) ALKALINE PHOSPHATASE (test 83 U/L code = 2204) AST (test code = 2218) 21 U/L ALT (test code = 2219) 18 U/L LIPID [id number] 00:00:00 Test Item Value Reference Range Interpretation Comments CHOLESTEROL (test code = 2210) 186 MG/DL TRIGLYCERIDES (test code = 2232) 106 MG/DL HDL CHOLESTEROL (test code = 2220) 54 MG/DL CALC LDL CHOL (test code = 2237) 111 MG/DL RISK RATIO LDL/HDL (test code = 2.05 RATIO 2238) LIPID [id number] 00:00:00 Test Item Value Reference Range Interpretation Comments CHOLESTEROL (test code = 2210) 186 MG/DL TRIGLYCERIDES (test code = 2232) 106 MG/DL HDL CHOLESTEROL (test code = 2220) 54 MG/DL CALC LDL CHOL (test code = 2237) 111 MG/DL RISK RATIO LDL/HDL (test code = 2.05 RATIO 2238) GC AND CHLAMYDIA, AMPLIFIED, [id number] 00:00:00 Test Item Value Reference Range Interpretation Comments GONORRHEA, TMA (test code = 80237) NEGATIVE CHLAMYDIA, TMA (test code = 02592) NEGATIVE GC AND CHLAMYDIA, AMPLIFIED, [id number] 00:00:00 Test Item Value Reference Range Interpretation Comments GONORRHEA, TMA (test code = 16028) NEGATIVE CHLAMYDIA, TMA (test code = 01124) NEGATIVE GC AND CHLAMYDIA, AMPLIFIED, [id number] 00:00:00 Test Item Value Reference Range Interpretation Comments GONORRHEA, TMA (test code = 77220) NEGATIVE CHLAMYDIA, TMA (test code = 88253) NEGATIVE GC AND CHLAMYDIA, AMPLIFIED, [id number] 00:00:00 Test Item Value Reference Range Interpretation Comments GONORRHEA, TMA (test code = 78679) NEGATIVE CHLAMYDIA, TMA (test code = 36803) NEGATIVE GC AND CHLAMYDIA, AMPLIFIED, [id number] 00:00:00 Test Item Value Reference Range Interpretation Comments GONORRHEA, TMA (test code = 50068) NEGATIVE CHLAMYDIA, TMA (test code = 67861) NEGATIVE GC AND CHLAMYDIA, AMPLIFIED, [id number] 00:00:00 Test Item Value Reference Range Interpretation Comments GONORRHEA, TMA (test code = 93441) NEGATIVE CHLAMYDIA, TMA (test code = 56674) NEGATIVE VAGINAL PATHOGENS DNA [id number] 00:00:00 Test Item Value Reference Range Interpretation Comments YOKO SPECIES (test code = 49906) POSITIVE G. VAGINALIS (test code = 03403) NEGATIVE T. VAGINALIS (test code = 79028) NEGATIVE VAGINAL PATHOGENS DNA [id number] 00:00:00 Test Item Value Reference Range Interpretation Comments YOKO SPECIES (test code = 40045) POSITIVE G. VAGINALIS (test code = 47119) NEGATIVE T. VAGINALIS (test code = 74298) NEGATIVE VAGINAL PATHOGENS DNA [id number] 00:00:00 Test Item Value Reference Range Interpretation Comments YOKO SPECIES (test code = 66471) POSITIVE G. VAGINALIS (test code = 79207) NEGATIVE T. VAGINALIS (test code = 78307) NEGATIVE VAGINAL PATHOGENS DNA [id number] 00:00:00 Test Item Value Reference Range Interpretation Comments YOKO SPECIES (test code = 60495) POSITIVE G. VAGINALIS (test code = 85683) NEGATIVE T. VAGINALIS (test code = 17206) NEGATIVE VAGINAL PATHOGENS DNA [id number] 00:00:00 Test Item Value Reference Range Interpretation Comments YOKO SPECIES (test code = 94495) POSITIVE G. VAGINALIS (test code = 16500) NEGATIVE T. VAGINALIS (test code = 91727) NEGATIVE VAGINAL PATHOGENS DNA [id number] 00:00:00 Test Item Value Reference Range Interpretation Comments YOKO SPECIES (test code = 60849) POSITIVE G. VAGINALIS (test code = 09908) NEGATIVE T. VAGINALIS (test code = 18731) NEGATIVE GC AND CHLAMYDIA, AMPLIFIED, [id number] 00:00:00 Test Item Value Reference Range Interpretation Comments GONORRHEA, TMA (test code = 55975) NEGATIVE CHLAMYDIA, TMA (test code = 60436) NEGATIVE GC AND CHLAMYDIA, AMPLIFIED, [id number] 00:00:00 Test Item Value Reference Range Interpretation Comments GONORRHEA, TMA (test code = 49292) NEGATIVE CHLAMYDIA, TMA (test code = 37470) NEGATIVE GC AND CHLAMYDIA, AMPLIFIED, [id number] 00:00:00 Test Item Value Reference Range Interpretation Comments GONORRHEA, TMA (test code = 18053) NEGATIVE CHLAMYDIA, TMA (test code = 94744) NEGATIVE GC AND CHLAMYDIA, AMPLIFIED, [id number] 00:00:00 Test Item Value Reference Range Interpretation Comments GONORRHEA, TMA (test code = 59230) NEGATIVE CHLAMYDIA, TMA (test code = 71708) NEGATIVE GC AND CHLAMYDIA, AMPLIFIED, [id number] 00:00:00 Test Item Value Reference Range Interpretation Comments GONORRHEA, TMA (test code = 71879) NEGATIVE CHLAMYDIA, TMA (test code = 23768) NEGATIVE GC AND CHLAMYDIA, AMPLIFIED, [id number] 00:00:00 Test Item Value Reference Range Interpretation Comments GONORRHEA, TMA (test code = 83677) NEGATIVE CHLAMYDIA, TMA (test code = 65161) NEGATIVE CULTURE, [id number] 00:00:00 Test Item Value Reference Range Interpretation Comments CULTURE, URINE (test SPECIMEN NUMBER: code = 19821) [id number] CULTURE, [id number] 00:00:00 Test Item Value Reference Range Interpretation Comments CULTURE, URINE (test SPECIMEN NUMBER: code = 77249) [id number] CULTURE, [id number] 00:00:00 Test Item Value Reference Range Interpretation Comments CULTURE, URINE (test SPECIMEN NUMBER: code = 13816) [id number] CULTURE, [id number] 00:00:00 Test Item Value Reference Range Interpretation Comments CULTURE, URINE (test SPECIMEN NUMBER: code = 73440) [id number] CULTURE, [id number] 00:00:00 Test Item Value Reference Range Interpretation Comments CULTURE, URINE (test SPECIMEN NUMBER: code = 78592) [id number] CULTURE, [id number] 00:00:00 Test Item Value Reference Range Interpretation Comments CULTURE, URINE (test SPECIMEN NUMBER: code = 26530) [id number] HEMOGLOBIN [id number] 00:00:00 Test Item Value Reference Range Interpretation Comments HEMOGLOBIN A1c (test code = 51259) 5.5 % HEMOGLOBIN [id number] 00:00:00 Test Item Value Reference Range Interpretation Comments HEMOGLOBIN A1c (test code = 88626) 5.5 % HEMOGLOBIN [id number] 00:00:00 Test Item Value Reference Range Interpretation Comments HEMOGLOBIN A1c (test code = 96517) 5.5 % CBC W/AUTO [id number] 00:00:00 Test Item Value Reference Range Interpretation Comments WBC (test code = 1001) 6.2 K/UL RBC (test code = 1002) 4.42 M/UL HEMOGLOBIN (test code = 1003) 11.6 G/DL HEMATOCRIT (test code = 1004) 35.1 % MCV (test code = 1005) 79.4 fL MCH (test code = 1006) 26.2 PG MCHC (test code = 1007) 33.0 G/DL RDW (test code = 1038) 16.4 % NEUTROPHILS (test code = 1008) 59 % LYMPHOCYTES (test code = 1010) 29 % MONOCYTES (test code = 1011) 6 % EOSINOPHILS (test code = 1012) 5 % BASOPHILS (test code = 1013) % PLATELET COUNT (test code = 1015) 310 K/UL CBC W/AUTO [id number] 00:00:00 Test Item Value Reference Range Interpretation Comments WBC (test code = 1001) 6.2 K/UL RBC (test code = 1002) 4.42 M/UL HEMOGLOBIN (test code = 1003) 11.6 G/DL HEMATOCRIT (test code = 1004) 35.1 % MCV (test code = 1005) 79.4 fL MCH (test code = 1006) 26.2 PG MCHC (test code = 1007) 33.0 G/DL RDW (test code = 1038) 16.4 % NEUTROPHILS (test code = 1008) 59 % LYMPHOCYTES (test code = 1010) 29 % MONOCYTES (test code = 1011) 6 % EOSINOPHILS (test code = 1012) 5 % BASOPHILS (test code = 1013) % PLATELET COUNT (test code = 1015) 310 K/UL CBC W/AUTO [id number] 00:00:00 Test Item Value Reference Range Interpretation Comments WBC (test code = 1001) 6.2 K/UL RBC (test code = 1002) 4.42 M/UL HEMOGLOBIN (test code = 1003) 11.6 G/DL HEMATOCRIT (test code = 1004) 35.1 % MCV (test code = 1005) 79.4 fL MCH (test code = 1006) 26.2 PG MCHC (test code = 1007) 33.0 G/DL RDW (test code = 1038) 16.4 % NEUTROPHILS (test code = 1008) 59 % LYMPHOCYTES (test code = 1010) 29 % MONOCYTES (test code = 1011) 6 % EOSINOPHILS (test code = 1012) 5 % BASOPHILS (test code = 1013) % PLATELET COUNT (test code = 1015) 310 K/UL COMPREHENSIVE METABOLIC [id number] 00:00:00 Test Item Value Reference Range Interpretation Comments GLUCOSE (test code = 2217) 73 MG/DL BUN (test code = 2208) 10 MG/DL CREATININE (test code = 2214) 0.51 MG/DL eGFR AMER. (test code 158 ML/MIN/1.73 = 77535) eGFR NON- AMER. (test 136 ML/MIN/1.73 code = 17782) CALCULATED BUN/CREAT (test 20 RATIO code = 2235) SODIUM (test code = 2231) 136 MEQ/L POTASSIUM (test code = 2228) 4.1 MEQ/L CHLORIDE (test code = 2215) 102 MEQ/L CARBON DIOXIDE (test code = 21 MEQ/L 2205) CALCIUM (test code = 2209) 9.8 MG/DL PROTEIN, TOTAL (test code = 8.0 G/DL 2228) ALBUMIN (test code = 2201) 4.3 G/DL CALCULATED GLOBULIN (test 3.7 G/DL code = 2240) CALCULATED A/G RATIO (test 1.2 RATIO code = 2234) BILIRUBIN, TOTAL (test code = 0.4 MG/DL 2206) ALKALINE PHOSPHATASE (test 54 U/L code = 2204) SGOT (AST) (test code = 2218) 21 U/L SGPT (ALT) (test code = 2219) 23 U/L COMPREHENSIVE METABOLIC [id number] 00:00:00 Test Item Value Reference Range Interpretation Comments GLUCOSE (test code = 2217) 73 MG/DL BUN (test code = 2208) 10 MG/DL CREATININE (test code = 2214) 0.51 MG/DL eGFR AMER. (test code 158 ML/MIN/1.73 = 74587) eGFR NON- AMER. (test 136 ML/MIN/1.73 code = 09338) CALCULATED BUN/CREAT (test 20 RATIO code = 2235) SODIUM (test code = 2231) 136 MEQ/L POTASSIUM (test code = 2228) 4.1 MEQ/L CHLORIDE (test code = 2215) 102 MEQ/L CARBON DIOXIDE (test code = 21 MEQ/L 2205) CALCIUM (test code = 2209) 9.8 MG/DL PROTEIN, TOTAL (test code = 8.0 G/DL 2228) ALBUMIN (test code = 2201) 4.3 G/DL CALCULATED GLOBULIN (test 3.7 G/DL code = 2240) CALCULATED A/G RATIO (test 1.2 RATIO code = 2234) BILIRUBIN, TOTAL (test code = 0.4 MG/DL 2206) ALKALINE PHOSPHATASE (test 54 U/L code = 2204) SGOT (AST) (test code = 2218) 21 U/L SGPT (ALT) (test code = 2219) 23 U/L LIPID [id number] 00:00:00 Test Item Value Reference Range Interpretation Comments CHOLESTEROL (test code = 2210) 167 MG/DL TRIGLYCERIDES (test code = 2232) 109 MG/DL HDL CHOLESTEROL (test code = 2220) 58 MG/DL CALCULATED LDL CHOL (test code = 87 MG/DL 2236) RISK RATIO LDL/HDL (test code = 1.50 RATIO 2238) LIPID [id number] 00:00:00 Test Item Value Reference Range Interpretation Comments CHOLESTEROL (test code = 2210) 167 MG/DL TRIGLYCERIDES (test code = 2232) 109 MG/DL HDL CHOLESTEROL (test code = 2220) 58 MG/DL CALCULATED LDL CHOL (test code = 87 MG/DL 2237) RISK RATIO LDL/HDL (test code = 1.50 RATIO 2238) THYROID II PROFILE (T3U, T4, T7, TSH)[id number] 00:00:00 Test Item Value Reference Range Interpretation Comments T3 UPTAKE (test code = 2817) 26.5 % T4 (THYROXINE) (test code = 2819) 7.5 UG/DL CALCULATED T7 (FTI) (test code = 1.99 2820) TSH (test code = 2821) 1.5 UIU/ML THYROID II PROFILE (T3U, T4, T7, TSH)2016-01-18 00:00:00 Test Item Value Reference Range Interpretation Comments T3 UPTAKE (test code = 2817) 26.5 % T4 (THYROXINE) (test code = 2819) 7.5 UG/DL CALCULATED T7 (FTI) (test code = 1.99 2820) TSH (test code = 2821) 1.5 UIU/ML HEMOGLOBIN [id number] 00:00:00 Test Item Value Reference Range Interpretation Comments HEMOGLOBIN A1c (test code = 00493) 5.5 % HEMOGLOBIN [id number] 00:00:00 Test Item Value Reference Range Interpretation Comments HEMOGLOBIN A1c (test code = 15623) 5.5 % HEMOGLOBIN [id number] 00:00:00 Test Item Value Reference Range Interpretation Comments HEMOGLOBIN A1c (test code = 41506) 5.5 % HEMOGLOBIN [id number] 00:00:00 Test Item Value Reference Range Interpretation Comments HEMOGLOBIN A1c (test code = 07582) 5.5 % HEMOGLOBIN [id number] 00:00:00 Test Item Value Reference Range Interpretation Comments HEMOGLOBIN A1c (test code = 10382) 5.5 % CBC W/AUTO [id number] 00:00:00 Test Item Value Reference Range Interpretation Comments WBC (test code = 1001) 6.2 K/UL RBC (test code = 1002) 4.42 M/UL HEMOGLOBIN (test code = 1003) 11.6 G/DL HEMATOCRIT (test code = 1004) 35.1 % MCV (test code = 1005) 79.4 fL MCH (test code = 1006) 26.2 PG MCHC (test code = 1007) 33.0 G/DL RDW (test code = 1038) 16.4 % NEUTROPHILS (test code = 1008) 59 % LYMPHOCYTES (test code = 1010) 29 % MONOCYTES (test code = 1011) 6 % EOSINOPHILS (test code = 1012) 5 % BASOPHILS (test code = 1013) % PLATELET COUNT (test code = 1015) 310 K/UL CBC W/AUTO [id number] 00:00:00 Test Item Value Reference Range Interpretation Comments WBC (test code = 1001) 6.2 K/UL RBC (test code = 1002) 4.42 M/UL HEMOGLOBIN (test code = 1003) 11.6 G/DL HEMATOCRIT (test code = 1004) 35.1 % MCV (test code = 1005) 79.4 fL MCH (test code = 1006) 26.2 PG MCHC (test code = 1007) 33.0 G/DL RDW (test code = 1038) 16.4 % NEUTROPHILS (test code = 1008) 59 % LYMPHOCYTES (test code = 1010) 29 % MONOCYTES (test code = 1011) 6 % EOSINOPHILS (test code = 1012) 5 % BASOPHILS (test code = 1013) % PLATELET COUNT (test code = 1015) 310 K/UL CBC W/AUTO [id number] 00:00:00 Test Item Value Reference Range Interpretation Comments WBC (test code = 1001) 6.2 K/UL RBC (test code = 1002) 4.42 M/UL HEMOGLOBIN (test code = 1003) 11.6 G/DL HEMATOCRIT (test code = 1004) 35.1 % MCV (test code = 1005) 79.4 fL MCH (test code = 1006) 26.2 PG MCHC (test code = 1007) 33.0 G/DL RDW (test code = 1038) 16.4 % NEUTROPHILS (test code = 1008) 59 % LYMPHOCYTES (test code = 1010) 29 % MONOCYTES (test code = 1011) 6 % EOSINOPHILS (test code = 1012) 5 % BASOPHILS (test code = 1013) % PLATELET COUNT (test code = 1015) 310 K/UL COMPREHENSIVE METABOLIC [id number] 00:00:00 Test Item Value Reference Range Interpretation Comments GLUCOSE (test code = 2217) 73 MG/DL BUN (test code = 2208) 10 MG/DL CREATININE (test code = 2214) 0.51 MG/DL eGFR AMER. (test code 158 ML/MIN/1.73 = 83830) eGFR NON- AMER. (test 136 ML/MIN/1.73 code = 13269) CALCULATED BUN/CREAT (test 20 RATIO code = 2235) SODIUM (test code = 2231) 136 MEQ/L POTASSIUM (test code = 2228) 4.1 MEQ/L CHLORIDE (test code = 2215) 102 MEQ/L CARBON DIOXIDE (test code = 21 MEQ/L 2205) CALCIUM (test code = 2209) 9.8 MG/DL PROTEIN, TOTAL (test code = 8.0 G/DL 2228) ALBUMIN (test code = 2201) 4.3 G/DL CALCULATED GLOBULIN (test 3.7 G/DL code = 2240) CALCULATED A/G RATIO (test 1.2 RATIO code = 2234) BILIRUBIN, TOTAL (test code = 0.4 MG/DL 2206) ALKALINE PHOSPHATASE (test 54 U/L code = 2204) SGOT (AST) (test code = 2218) 21 U/L SGPT (ALT) (test code = 2219) 23 U/L COMPREHENSIVE METABOLIC [id number] 00:00:00 Test Item Value Reference Range Interpretation Comments GLUCOSE (test code = 2217) 73 MG/DL BUN (test code = 2208) 10 MG/DL CREATININE (test code = 2214) 0.51 MG/DL eGFR AMER. (test code 158 ML/MIN/1.73 = 86764) eGFR NON- AMER. (test 136 ML/MIN/1.73 code = 55639) CALCULATED BUN/CREAT (test 20 RATIO code = 2235) SODIUM (test code = 2231) 136 MEQ/L POTASSIUM (test code = 2228) 4.1 MEQ/L CHLORIDE (test code = 2215) 102 MEQ/L CARBON DIOXIDE (test code = 21 MEQ/L 2205) CALCIUM (test code = 2209) 9.8 MG/DL PROTEIN, TOTAL (test code = 8.0 G/DL 2228) ALBUMIN (test code = 2201) 4.3 G/DL CALCULATED GLOBULIN (test 3.7 G/DL code = 2240) CALCULATED A/G RATIO (test 1.2 RATIO code = 2234) BILIRUBIN, TOTAL (test code = 0.4 MG/DL 2206) ALKALINE PHOSPHATASE (test 54 U/L code = 2204) SGOT (AST) (test code = 2218) 21 U/L SGPT (ALT) (test code = 2219) 23 U/L LIPID [id number] 00:00:00 Test Item Value Reference Range Interpretation Comments CHOLESTEROL (test code = 2210) 167 MG/DL TRIGLYCERIDES (test code = 2232) 109 MG/DL HDL CHOLESTEROL (test code = 2220) 58 MG/DL CALCULATED LDL CHOL (test code = 87 MG/DL 2236) RISK RATIO LDL/HDL (test code = 1.50 RATIO 2237) LIPID [id number] 00:00:00 Test Item Value Reference Range Interpretation Comments CHOLESTEROL (test code = 2210) 167 MG/DL TRIGLYCERIDES (test code = 2232) 109 MG/DL HDL CHOLESTEROL (test code = 2220) 58 MG/DL CALCULATED LDL CHOL (test code = 87 MG/DL 2236) RISK RATIO LDL/HDL (test code = 1.50 RATIO 2238) THYROID II PROFILE (T3U, T4, T7, TSH)2016-01-18 00:00:00 Test Item Value Reference Range Interpretation Comments T3 UPTAKE (test code = 2817) 26.5 % T4 (THYROXINE) (test code = 2819) 7.5 UG/DL CALCULATED T7 (FTI) (test code = 1.99 2820) TSH (test code = 2821) 1.5 UIU/ML THYROID II PROFILE (T3U, T4, T7, TSH)2016-01-18 00:00:00 Test Item Value Reference Range Interpretation Comments T3 UPTAKE (test code = 2817) 26.5 % T4 (THYROXINE) (test code = 2819) 7.5 UG/DL CALCULATED T7 (FTI) (test code = 1.99 2820) TSH (test code = 2821) 1.5 UIU/ML HEMOGLOBIN [id number] 00:00:00 Test Item Value Reference Range Interpretation Comments HEMOGLOBIN A1c (test code = 98506) 5.5 % CBC W/AUTO [id number] 00:00:00 Test Item Value Reference Range Interpretation Comments WBC (test code = 1001) 6.2 K/UL RBC (test code = 1002) 4.42 M/UL HEMOGLOBIN (test code = 1003) 11.6 G/DL HEMATOCRIT (test code = 1004) 35.1 % MCV (test code = 1005) 79.4 fL MCH (test code = 1006) 26.2 PG MCHC (test code = 1007) 33.0 G/DL RDW (test code = 1038) 16.4 % NEUTROPHILS (test code = 1008) 59 % LYMPHOCYTES (test code = 1010) 29 % MONOCYTES (test code = 1011) 6 % EOSINOPHILS (test code = 1012) 5 % BASOPHILS (test code = 1013) % PLATELET COUNT (test code = 1015) 310 K/UL CBC W/AUTO [id number] 00:00:00 Test Item Value Reference Range Interpretation Comments WBC (test code = 1001) 6.2 K/UL RBC (test code = 1002) 4.42 M/UL HEMOGLOBIN (test code = 1003) 11.6 G/DL HEMATOCRIT (test code = 1004) 35.1 % MCV (test code = 1005) 79.4 fL MCH (test code = 1006) 26.2 PG MCHC (test code = 1007) 33.0 G/DL RDW (test code = 1038) 16.4 % NEUTROPHILS (test code = 1008) 59 % LYMPHOCYTES (test code = 1010) 29 % MONOCYTES (test code = 1011) 6 % EOSINOPHILS (test code = 1012) 5 % BASOPHILS (test code = 1013) % PLATELET COUNT (test code = 1015) 310 K/UL CBC W/AUTO [id number] 00:00:00 Test Item Value Reference Range Interpretation Comments WBC (test code = 1001) 6.2 K/UL RBC (test code = 1002) 4.42 M/UL HEMOGLOBIN (test code = 1003) 11.6 G/DL HEMATOCRIT (test code = 1004) 35.1 % MCV (test code = 1005) 79.4 fL MCH (test code = 1006) 26.2 PG MCHC (test code = 1007) 33.0 G/DL RDW (test code = 1038) 16.4 % NEUTROPHILS (test code = 1008) 59 % LYMPHOCYTES (test code = 1010) 29 % MONOCYTES (test code = 1011) 6 % EOSINOPHILS (test code = 1012) 5 % BASOPHILS (test code = 1013) % PLATELET COUNT (test code = 1015) 310 K/UL COMPREHENSIVE METABOLIC [id number] 00:00:00 Test Item Value Reference Range Interpretation Comments GLUCOSE (test code = 2217) 73 MG/DL BUN (test code = 2208) 10 MG/DL CREATININE (test code = 2214) 0.51 MG/DL eGFR AMER. (test code 158 ML/MIN/1.73 = 03245) eGFR NON- AMER. (test 136 ML/MIN/1.73 code = 33380) CALCULATED BUN/CREAT (test 20 RATIO code = 2235) SODIUM (test code = 2231) 136 MEQ/L POTASSIUM (test code = 2228) 4.1 MEQ/L CHLORIDE (test code = 2215) 102 MEQ/L CARBON DIOXIDE (test code = 21 MEQ/L 2206) CALCIUM (test code = 2209) 9.8 MG/DL PROTEIN, TOTAL (test code = 8.0 G/DL 2228) ALBUMIN (test code = 2201) 4.3 G/DL CALCULATED GLOBULIN (test 3.7 G/DL code = 2240) CALCULATED A/G RATIO (test 1.2 RATIO code = 2234) BILIRUBIN, TOTAL (test code = 0.4 MG/DL 2206) ALKALINE PHOSPHATASE (test 54 U/L code = 2204) SGOT (AST) (test code = 2218) 21 U/L SGPT (ALT) (test code = 2219) 23 U/L COMPREHENSIVE METABOLIC [id number] 00:00:00 Test Item Value Reference Range Interpretation Comments GLUCOSE (test code = 2217) 73 MG/DL BUN (test code = 2208) 10 MG/DL CREATININE (test code = 2214) 0.51 MG/DL eGFR AMER. (test code 158 ML/MIN/1.73 = 64988) eGFR NON- AMER. (test 136 ML/MIN/1.73 code = 05273) CALCULATED BUN/CREAT (test 20 RATIO code = 2235) SODIUM (test code = 2231) 136 MEQ/L POTASSIUM (test code = 2228) 4.1 MEQ/L CHLORIDE (test code = 2215) 102 MEQ/L CARBON DIOXIDE (test code = 21 MEQ/L 2205) CALCIUM (test code = 2209) 9.8 MG/DL PROTEIN, TOTAL (test code = 8.0 G/DL 2228) ALBUMIN (test code = 2201) 4.3 G/DL CALCULATED GLOBULIN (test 3.7 G/DL code = 2240) CALCULATED A/G RATIO (test 1.2 RATIO code = 2234) BILIRUBIN, TOTAL (test code = 0.4 MG/DL 2206) ALKALINE PHOSPHATASE (test 54 U/L code = 2204) SGOT (AST) (test code = 2218) 21 U/L SGPT (ALT) (test code = 2219) 23 U/L LIPID [id number] 00:00:00 Test Item Value Reference Range Interpretation Comments CHOLESTEROL (test code = 2210) 167 MG/DL TRIGLYCERIDES (test code = 2232) 109 MG/DL HDL CHOLESTEROL (test code = 2220) 58 MG/DL CALCULATED LDL CHOL (test code = 87 MG/DL 2236) RISK RATIO LDL/HDL (test code = 1.50 RATIO 2238) LIPID [id number] 00:00:00 Test Item Value Reference Range Interpretation Comments CHOLESTEROL (test code = 2210) 167 MG/DL TRIGLYCERIDES (test code = 2232) 109 MG/DL HDL CHOLESTEROL (test code = 2220) 58 MG/DL CALCULATED LDL CHOL (test code = 87 MG/DL 2236) RISK RATIO LDL/HDL (test code = 1.50 RATIO 8) THYROID II PROFILE (T3U, T4, T7, TSH)2016-01-18 00:00:00 Test Item Value Reference Range Interpretation Comments T3 UPTAKE (test code = 2817) 26.5 % T4 (THYROXINE) (test code = 2819) 7.5 UG/DL CALCULATED T7 (FTI) (test code = 1.99 2820) TSH (test code = 2821) 1.5 UIU/ML THYROID II PROFILE (T3U, T4, T7, TSH)2016-01-18 00:00:00 Test Item Value Reference Range Interpretation Comments T3 UPTAKE (test code = 2817) 26.5 % T4 (THYROXINE) (test code = 2819) 7.5 UG/DL CALCULATED T7 (FTI) (test code = 1.99 2820) TSH (test code = 2821) 1.5 UIU/ML
[2022-10-10 12:01] LABS: Absolute Lymphocytes (CBC) 1.9 K/uL (0.7-4.9); Hematocrit 34.6 % (36.0-45.0); Lymphocytes % 29.3 % (15.3-44.8); MCV 71.2 fL (80-100); MPV 8.6 fL (7.6-11.3); RBC Red Blood Cell Count 4.86 M/uL (3.86-4.86)
[2022-10-10 12:20] LABS: Troponin High Sensitivity 3.4 pg/mL (<58.9)
[2022-10-10 12:22] LABS: Potassium 2.8 mmol/L (3.5-5.1)
[2022-10-10 12:31] LABS: Platelet Estimate ADEQ
[2022-10-10 12:32] LABS: Anisocytosis 2+; Blood Morphology Comment NOTED (NOT SEEN)
--- NOTE | 2022-10-10 12:48 | RAD REPORT ---
EXAM DESCRIPTION: RAD - Knee Right 2 View - 10/10/2022 12:18 pm CLINICAL HISTORY: Knee pain FINDINGS: Limited two view series obtained No fracture or dislocation seen. No bone or joint abnormality is displayed
--- NOTE | 2022-10-10 12:49 | RAD REPORT ---
EXAM DESCRIPTION: RAD - Knee Left 2 View - 10/10/2022 12:18 pm CLINICAL HISTORY: Knee pain FINDINGS: No fracture is seen. Lateral subluxation of patella
[2022-10-10] MEDS ORDERED: KCL 20 MEQ/100 mL IVPB 100 ML IV ONE (12:57)
[2022-10-10] MEDS ORDERED: POTASSIUM CL SA 10 MEQ TAB PO ONE (12:57)
--- NOTE | 2022-10-10 13:26 | RAD REPORT ---
EXAM DESCRIPTION: [facility] Single View10/10/2022 1:20 pm CLINICAL HISTORY: Shortness of breath COMPARISON: 2017 FINDINGS: The lungs appear clear of acute infiltrate. The heart is normal size IMPRESSION: No acute abnormalities displayed
--- NOTE | 2022-10-10 14:23 | RAD REPORT ---
EXAM DESCRIPTION: CT - Head Brain Wo Cont - 10/10/2022 2:17 pm CLINICAL HISTORY: SYNCOPE COMPARISON: No comparisons TECHNIQUE: All CT scans are performed using dose optimization technique as appropriate and may inclu de automated exposure control or mA/KV adjustment according to patient size. FINDINGS: No intracranial hemorrhage, hydrocephalus or extra-axial fluid collection.No areas of brai n edema or evidence of midline shift. The paranasal sinuses and mastoids are clear. The calvarium is intact. IMPRESSION: No acute intracranial abnormality.
--- NOTE | 2022-10-10 15:36 | EDPHYS ---
Physician Documentation [facility] Name: Taylor Rodriguez Age: 27 yrs Sex: Female : 1995 Arrival Date: 10/10/2022 Time: 10:34 Bed 16 Private MD: ED Physician Domenic Sidhu HPI: 10/10 10:54 This 27 yrs old Black Female presents to ER via Unassigned with complaints of Syncope. aj3 10:54 Per EMS, the patient was at [facility] and was getting labs drawn when she aj3 had a syncopal episode falling out of her chair landing on her knees. Patient mother reports that this happens at least once a month when getting blood drawn. Patient does take medication for anxiety, bipolar and hypertension. Patient currently reports knee pain bilaterally but otherwise has no other symptoms.. Historical: - Allergies: 11:11 Naproxen; db - PMHx: 11:11 Anxiety; Depression; Fibromyalgia; High Blood Pressure; Schizophrenia; db - Immunization history:: Adult Immunizations unknown. - Social history:: Smoking status: Patient denies any tobacco usage or history of. ROS: 13:50 Constitutional: Negative for fever, chills, and weight loss, Cardiovascular: Negative aj3 for chest pain, palpitations, and edema, Respiratory: Negative for shortness of breath, cough, wheezing, and pleuritic chest pain, Abdomen/GI: Negative for abdominal pain, nausea, vomiting, diarrhea, and constipation, Skin: Negative for injury, rash, and discoloration. 13:50 Neuro: Negative for syncope, headache, weakness, numbness, tingling, and seizure. 13:50 MS/extremity: Positive for pain, of the bilateral knees, Negative for 13:50 Neuro: Positive for 13:50 Psych: Positive for anxiety. Exam: 13:31 ECG was reviewed by the Attending Physician. aj3 13:50 Constitutional: This is a well developed, well nourished patient who is awake, alert, aj3 and in no acute distress. Head/Face: Normocephalic, atraumatic. Cardiovascular: Regular rate and rhythm with a normal S1 and S2. No gallops, murmurs, or rubs. Normal PMI, no JVD. No pulse deficits. Respiratory: Lungs have equal breath sounds bilaterally, clear to auscultation and percussion. No rales, rhonchi or wheezes noted. No increased work of breathing, no retractions or nasal flaring. Abdomen/GI: Soft, non-tender, with normal bowel sounds. No distension or tympany. No guarding or rebound. No evidence of tenderness throughout. Skin: Warm, dry with normal turgor. Normal color with no rashes, no lesions, and no evidence of cellulitis. Neuro: Awake and alert, GCS 15, oriented to person, place, time, and situation. Cranial nerves II-XII grossly intact. Motor strength 5/5 in all extremities. Sensory grossly intact. Cerebellar exam normal. Normal gait. 13:50 Musculoskeletal/extremity: Tenderness to bilateral knees. No deformity or swelling noted. 13:50 Psych: Behavior/mood is anxious. Vital Signs: 10:46 BP 140 / 126; Pulse 75; Resp 18; Temp 98.4; Pulse Ox 99% on R/A; Weight 128.37 kg; db Height 5 ft. 3 in. (160.02 cm); Pain 8/10; 12:00 BP 157 / 113; Pulse 75; Resp 16; Pulse Ox 100% on R/A; db 13:00 BP 137 / 93; Pulse 76; Resp 18; Pulse Ox 99% on R/A; kr3 14:00 BP 141 / 95; Pulse 76; Resp 18; Pulse Ox 100% on R/A; kr3 15:30 BP 143 / 99; Pulse 77; Resp 18; Pulse Ox 99% on R/A; kr3 10:46 Body Mass Index 50.13 (128.37 kg, 160.02 cm) db MDM: 10:42 Patient medically screened. aj3 10:54 Differential Diagnosis: cardiac arrhythmia, emotional response, , vasovagal aj3 episode, Electrolyte imbalance. 13:50 Differential Diagnosis:. ECG was reviewed by the Attending Physician. Independent aj3 interpretation of the following test(s) in the Emergency Department X-Ray: My interpretation is chest xray appears normal and no fractures noted on knee xray. 14:24 Independent interpretation of the following test(s) in the Emergency Department CT aj3 Scan: My interpretation is no head bleed noted. Care significantly affected by the following chronic conditions: anxiety and bipolar. Counseling: I had a detailed discussion with the patient and/or guardian regarding: the historical points, exam findings, and any diagnostic results supporting the discharge/admit diagnosis, lab results, radiology results. 15:36 Data reviewed: vital signs, nurses notes, lab test result(s), EKG, radiologic studies, CT scan, plain films. Consideration of Admission/Observation Patient's ED work-up was remarkable for hypokalemia 2.8. EKG was normal without signs of bradycardia QTc changes. On reassessment, patient mentation and anxiety has improved. She is able to ambulate without any difficulty. No admission warranted today. . I considered the following discharge prescriptions or medication management in the emergency department Medications were administered in the Emergency Department. See MAR. Historians other than the Patient: Parent: . Mother. 10/10 10:54 Order name: Basic Metabolic Panel; Complete Time: 12:22 10/10 10:54 Order name: CBC with Diff; Complete Time: 12:52 10/10 10:54 Order name: Troponin HS; Complete Time: 12:22 10/10 10:54 Order name: Test, Serum; Complete Time: 12:52 10/10 12:32 Order name: Manual Differential; Complete Time: 12:52 EDMS 10/10 10:54 Order name: Knee Left 2 View XRAY; Complete Time: 12:52 10/10 10:54 Order name: Knee Right 2 View XRAY; Complete Time: 12:52 10/10 13:20 Order name: Chest Single View; Complete Time: 13:30 EDMS 10/10 13:55 Order name: CT Head Brain wo Cont; Complete Time: 14:24 10/10 10:54 Order name: EKG; Complete Time: 10:55 10/10 10:54 Order name: Cardiac monitoring; Complete Time: 11:58 10/10 10:54 Order name: EKG - Nurse/Tech; Complete Time: 13:14 10/10 10:54 Order name: IV Saline Lock; Complete Time: 11:59 10/10 10:54 Order name: Labs collected and sent; Complete Time: 11:59 10/10 10:54 Order name: O2 Per Protocol; Complete Time: 11:59 10/10 10:54 Order name: O2 Sat Monitoring; Complete Time: 11:59 EC:36 Rate is 80 beats/min. Rhythm is regular. QRS [place] is Normal. [place] interval is normal. QRS aj3 interval is normal. QT interval is normal. No Q waves. T waves are Inverted in lead V3. No ST changes noted. Clinical impression: Abnormal EKG without significant change. Administered Medications: 11:25 Drug: Acetaminophen 1000 mg Route: PO; kr3 16:16 Follow up: Response: No adverse reaction kr3 11:58 Drug: NS 0.9% 1000 ml Route: IV; Rate: 1 bolus; Site: right antecubital; kr3 16:17 Follow up: IV Status: Completed infusion kr3 16:17 Follow up: Response: No adverse reaction kr3 12:58 CANCELLED (changing orderr): Potassium Chloride 10 mEq IV at calculated rate once; aj3 administer over 1-2 hours 13:04 Drug: Potassium Chloride 40 mEq Route: PO; kr3 16:16 Follow up: Response: No adverse reaction kr3 13:04 Drug: Potassium Chloride 20 mEq Route: IV; Rate: calculated rate; Site: right kr3 antecubital; 16:16 Follow up: Response: No adverse reaction; IV Status: Completed infusion; IV Intake: kr3 1000ml 16:16 Follow up: IV Status: Completed infusion; IV Intake: 100ml kr3 Disposition: 17:46 Co-signature as Attending Physician, Domenic Sidhu MD I reviewed the patient's care rt provided by the Advanced Practice Provider and agree with the diagnosis and treatment plan. Disposition Summary: 10/10/22 15:35 Discharge Ordered Location: Home aj3 Problem: new aj3 Symptoms: have improved aj3 Condition: Stable aj3 Diagnosis - Hypokalemia aj3 - Syncope aj3 - Anemia, unspecified aj3 - Anxiety disorder, unspecified aj3 Followup: aj3 - With: Private Physician - When: - Reason: Re-evaluation by your physician Followup: aj3 - With: Emergency Department - When: - Reason: If symptoms return Discharge Instructions: - Discharge Summary Sheet aj3 - Hypokalemia aj3 - Managing Anxiety, Adult aj3 Forms: - Medication Reconciliation Form aj3 - Thank You Letter aj3 - Work release form aj3 - Antibiotic Education aj3 - Prescription Opioid Use aj3 Signatures: Dispatcher [employer] EDLynne Kennedy RN RN kr3 Lynda Carpenter NP PATIENT CENTERED CARE SPECIALIST aj3 Lexi Fraire RN RN db Domenic Sihdu MD MD rt Corrections: (The following items were deleted from the chart) 12:58 12:24 Potassium Chloride 10 mEq IV at calculated rate once; administer over 1-2 hours aj3 ordered. aj3 13:19 10:55 Chest Single View+RAD.RAD.BRZ ordered. EDMS EDMS 13:55 10:54 Differential Diagnosis: cardiac arrhythmia, emotional response, , aj3 vasovagal episode, aj3
--- NOTE | 2022-10-10 15:36 | ER ---
Nurse's Notes [facility] Name: Taylor Rodriguez Age: 27 yrs Sex: Female : 1995 Arrival Date: 10/10/2022 Time: 10:34 Bed 16 Private MD: Diagnosis: Hypokalemia;Syncope;Anemia, unspecified;Anxiety disorder, unspecified Presentation: 10/10 10:46 Chief complaint: EMS states: Patient was at [facility] getting blood drawn db and then had a panic attack with syncopal episode and non responsive according to facility. patient hyperventilating. Patient has a history of panic attacks. Patient given Ativan 2 mg IM right deltoid. Coronavirus screen: Vaccine status: Patient reports receiving the 1st dose of the Covid vaccine. Client denies travel out of the [place] in the last 14 days. At this time, the client does not indicate any symptoms associated with coronavirus-19. Ebola Screen: Patient negative for fever greater than or equal to 101.5 degrees Fahrenheit, and additional compatible Ebola Virus Disease symptoms Patient denies exposure to infectious person. Patient denies travel to an Ebola-affected area in the 21 days before illness onset. No symptoms or risks identified at this time. Initial Sepsis Screen: Does the patient meet any 2 criteria? No. Patient's initial sepsis screen is negative. Does the patient have a suspected source of infection? No. Patient's initial sepsis screen is negative. Risk Assessment: Do you want to hurt yourself or someone else? Patient reports no desire to harm self or others. Onset of symptoms was October 10, 2022. Care prior to arrival: Medication(s) given: Ativan 2 mg IM. Mechanism of Injury: Fall fell from sitting position to floor and states hurt knee. 10:46 Method Of Arrival: EMS: [facility] db 10:46 Acuity: MILAN 2 db Triage Assessment: 11:12 General: Appears in no apparent distress. Behavior is calm, cooperative, was anxious db for EMS prior to Ativan administration. . Pain: Complains of pain in bilateral knees. Neuro: Level of Consciousness is awake, alert, obeys commands, Oriented to person, place, time, situation, Speech is normal, Reports a syncopal episode. Historical: - Allergies: 11:11 Naproxen; db - PMHx: 11:11 Anxiety; Depression; Fibromyalgia; High Blood Pressure; Schizophrenia; db - Immunization history:: Adult Immunizations unknown. - Social history:: Smoking status: Patient denies any tobacco usage or history of. Screenin:[facility] ED Fall Risk Assessment (Adult) History of falling in the last 3 months, db including since admission No falls in past 3 months (0 pts) Confusion or Disorientation No (0 pts) Intoxicated or Sedated No (0 pts) Impaired Gait No (0 pts) Mobility Assist Device Used No (0 pt) Altered Elimination No (0 pt) Score/Fall Risk Level 0 - 2 = Low Risk Oriented to surroundings, Maintained a safe environment, Educated pt \\T\\ family on fall prevention, incl call for assistance when getting out of bed. Abuse screen: Denies threats or abuse. Denies injuries from another. Nutritional screening: No deficits noted. Tuberculosis screening: No symptoms or risk factors identified. Assessment: 11:15 Reassessment: mom at bedside, ststes "whatever they gave her in the ambulance really kr3 messed her up". When the patient arrived with EMS GSC was 15 and she was not behaving like she is now. No issue noted at this time. Patient started behaving this way upon mothers presence. 12:48 Reassessment: Patient appears in no apparent distress at this time. Patient and/or db family updated on plan of care and expected duration. Pain level reassessed. Patient is alert, oriented x 3, equal unlabored respirations, skin warm/dry/pink. patient ambulatory to restroom. Patient in NAD. General: Appears in no apparent distress. comfortable, Behavior is calm, cooperative. Neuro: Level of Consciousness is awake, alert, obeys commands, Oriented to person, place, time, situation. Cardiovascular: Reports None Capillary refill < 3 seconds Rhythm is sinus rhythm. Respiratory: No deficits noted. Airway is patent Respiratory effort is even, unlabored, Respiratory pattern is regular, symmetrical. GI: No deficits noted. No signs and/or symptoms were reported involving the gastrointestinal system. : No deficits noted. No signs and/or symptoms were reported regarding the genitourinary system. 14:04 Reassessment: Patient appears in no apparent distress at this time. Patient and/or kr3 family updated on plan of care and expected duration. Pain level reassessed. Patient is alert, oriented x 3, equal unlabored respirations, skin warm/dry/pink. 15:30 Reassessment: Patient and/or family updated on plan of care and expected duration. Pain kr3 level reassessed. Patient is alert, oriented x 3, equal unlabored respirations, skin warm/dry/pink. patient sleeping. 15:38 Reassessment: potassium still running, discharge pending completion. kr3 Vital Signs: 10:46 BP 140 / 126; Pulse 75; Resp 18; Temp 98.4; Pulse Ox 99% on R/A; Weight 128.37 kg; db Height 5 ft. 3 in. (160.02 cm); Pain 8/10; 12:00 BP 157 / 113; Pulse 75; Resp 16; Pulse Ox 100% on R/A; db 13:00 BP 137 / 93; Pulse 76; Resp 18; Pulse Ox 99% on R/A; kr3 14:00 BP 141 / 95; Pulse 76; Resp 18; Pulse Ox 100% on R/A; kr3 15:30 BP 143 / 99; Pulse 77; Resp 18; Pulse Ox 99% on R/A; kr3 10:46 Body Mass Index 50.13 (128.37 kg, 160.02 cm) db Vitals: 12:00 Cardiac Rhythm Assessment Regular Sinus rhythm. db ED Course: 10:34 Patient arrived in ED. eb 10:37 Lynda Carpenter NP is PHCP. aj3 10:37 Domenic Sidhu MD is Attending Physician. aj3 10:55 Triage completed. db 11:11 Lynne Cary, ROQUE is Primary Nurse. kr3 11:14 Arm band placed on Patient placed in an exam room. db 11:59 Missed attempt(s): 22 gauge in right antecubital area. kr3 11:59 Inserted saline lock: 22 gauge in right antecubital area, using aseptic technique. kr3 ,using aseptic technique. By Elizabeth Brenner RN Blood collected. 12:20 Knee Left 2 View XRAY In Process Unspecified. EDMS 12:20 Knee Right 2 View XRAY In Process Unspecified. EDMS 12:52 Patient has correct armband on for positive identification. Bed in low position. Call db light in reach. Side rails up X 1. Client placed on continuous cardiac and pulse oximetry monitoring. NIBP monitoring applied. Warm blanket given. 13:20 Chest Single View In Process Unspecified. EDMS 14:18 CT Head Brain wo Cont In Process Unspecified. EDMS 16:15 No provider procedures requiring assistance completed. IV discontinued, intact, kr3 bleeding controlled, No redness/swelling at site. Pressure dressing applied. Administered Medications: 11:25 Drug: Acetaminophen 1000 mg Route: PO; kr3 16:16 Follow up: Response: No adverse reaction kr3 11:58 Drug: NS 0.9% 1000 ml Route: IV; Rate: 1 bolus; Site: right antecubital; kr3 16:17 Follow up: IV Status: Completed infusion kr3 16:17 Follow up: Response: No adverse reaction kr3 12:58 CANCELLED (changing orderr): Potassium Chloride 10 mEq IV at calculated rate once; aj3 administer over 1-2 hours 13:04 Drug: Potassium Chloride 40 mEq Route: PO; kr3 16:16 Follow up: Response: No adverse reaction kr3 13:04 Drug: Potassium Chloride 20 mEq Route: IV; Rate: calculated rate; Site: right kr3 antecubital; 16:16 Follow up: Response: No adverse reaction; IV Status: Completed infusion; IV Intake: kr3 1000ml 16:16 Follow up: IV Status: Completed infusion; IV Intake: 100ml kr3 Medication: 16:15 VIS not applicable for this client. kr3 Intake: 16:16 IV: 1000ml; Total: 1000ml. kr3 16:16 IV: 100ml; Total: 1100ml. kr3 Outcome: 15:35 Discharge ordered by . aj3 16:14 Patient left the ED. kr3 16:15 Discharged to home ambulatory. kr3 16:15 Condition: stable 16:15 Discharge instructions given to patient, Instructed on discharge instructions, follow up and referral plans. Demonstrated understanding of instructions, follow-up care. Signatures: Dispatcher [employer] EDMS Lolly Vang Kelley, RN RN kr3 Lynda Carpenter, KARTHIK KOSHER SEALER [email or web address] Lexi Fraire, RN RN db Corrections: (The following items were deleted from the chart) 13:19 12:20 In radiology for Chest Single View+RAD.RAD.BRZ. EDMS EDMS
[2022-10-10 16:19] VITALS: TEMP 98.4
[2022-10-10 16:23] VITALS: BP 143/99; O2SAT 99
== END 2022-10-10 16:14 | disposition home or self-care (01) ==
LOC: ER 10:31
DX: E87.6 Hypokalemia (principal); D64.9 Anemia, unspecified; F41.9 Anxiety disorder, unspecified; M25.562 Pain in left knee; M25.561 Pain in right knee; Z88.6 Allergy status to analgesic agent
CPT/HCPCS: 96365; 96361; 85025; 80048; 36415; 84703; 84484; 70450; 71045; 73560 ×2; 99284; 96366; J3480; J7030; 93005

== ENCOUNTER 2022-10-13 12:26 | Emergency (ER) | payer OTHER ==
--- OUTSIDE RECORDS SUMMARY | 2022-10-13 12:38 | XMS REPORT | Continuity of Care Document ---
:1995 Author Organization [facility] t Address [address] [place] [address] Care Team Providers Name Role Phone Roman YOUNG, [facility] Primary Care Physician [phone] DARLIN VICK Attending Clinician Unavailable ROBYN GARY Attending Clinician Unavailable [id number] Attending Clinician Unavailable DAR_CHRISTINA Attending Clinician Unavailable ANNEMARIE GRAFF Attending Clinician Unavailable Alexandre Wick Attending Clinician SHEY BIANCHI Attending Clinician Unavailable Doctor Unassigned, [place] Attending Clinician Unavailable Shey Bianchi MD Attending Clinician ALEXANDRE DELGADO Attending Clinician Unavailable James Sosa MD Attending Clinician Care, [facility] Primary Attending Clinician Unavailable ILINAA LAMAR Attending Clinician Unavailable Annemarie Alexander Attending Clinician Dannie Botello MD Attending Clinician DANNIE BOTELLO Attending Clinician Unavailable AMBNEFTALY_CHRISTINA Admitting Clinician Unavailable ALEXANDRE DELGADO Admitting Clinician Unavailable Payers Payer Name Policy Type Policy Number Effective Date Expiration Date S dameon [employer] MP SILVER: 9 [id number] 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 00:00: [...] Active Univers ALLERGIE Class ity of S [facility] Social History Social Habit Start Date Stop Date Quantity Comments Source History SDOH Jelena Ashley ld - Alcohol Frequency Externa l History SDOH Jelena sAhley ld - Alcohol Std External Drinks History TUOH Jelena Ashley ld - Alcohol Binge External Exposure to Not sure University of SARS-CoV-2 [place] [facility] (event) Branch History of Cigarette Smoker Universi ty of tobacco use [facility] Alcohol intake 2022-10-10 2022-10-10 Current drinker Beth Ibrahim - 00:00:00 00:00:00 of alcohol External (finding) Alcohol Comment 2022-09-09 2022-09-09 rare Jelena henley - 00:00:00 00:00:00 External Tobacco use and 2022-09-09 2022-09-09 Smokeless tobacco Ke sveta Seybold - exposure 00:00:00 00:00:00 non-user External Tobacco Comment 2019-08-16 2019-08-16 Quit Universit y of 00:00:00 00:00:00 smoking/vaping [facility] earlier this year Branch Sex [birth year] F Jelena Malcolm ybold - 00:00:00 00:00:00 External Smoking Status Start Date Stop Date Source Never smoked tobacco Jelena Seyb old - External Former smoker 2020-09-07 00:00:00 2020-09-07 00:00:00 [facility] Current some day 2019-10-24 00:00:00 [facility] smoker [facility] Branch Medications Ordered Filled Start Stop Current Ordering Indication Dosage Frequency Signature Comments Components Source Medication Medication Date Date Medication? Clinician (SIG) Name Name Losartan Yes [id number] 1{tbl} Take 1 K elsey Potassium-H 2-10 tablet by Lit romano CTZ 50-12.5 00:00: mouth - MG oral 00 daily Externa Tablet l Meclizine Yes [id number] 25mg Q.[id number] Take 1 Jelena HCl 25 MG 2-10 [id number] tablet (25 Seybold oral Tablet 00:00: 3D mg total) - 00 by mouth 3 Externa times l daily as needed Propranolol Yes [id number] 10mg Take 1 Jelena HCl 10 MG 2-10 tablet (10 Seyb old oral Tablet 00:00: mg total) - 00 by mouth 3 Externa times l daily Doxycycline Yes [id number] 100mg Take 1 Jelena Hyclate 100 1-31 tablet Seybol d MG oral 00:00: (100 mg - Tablet 00 total) by Externa mouth 2 l times daily Trulicity Yes [id number] .75mg Inject Jelena 0.75 1-28 0.75 mg Seybold MG/0.5ML 00:00: into the - subcutaneou 00 skin once Ext jonathan s Solution a week l Pen-injecto r Aripiprazol 2022- No Kelse y e 20 MG 1-25 01-25 Seybold oral Tablet 11:11: 00:00 - 39 :00 Externa l Aripiprazol 3- No [id number] 10mg Take 10 mg Jelena e 10 MG 1-25 -25 by mouth 2 Seybo ld oral Tablet 11:11: 00:00 times - 26 :00 daily Externa l Trazodone 0 Yes [id number] 100mg Take 100 Jelena HCl 100 MG 1-25 mg by Seybold oral Tablet 10:31: mouth at - 22 bedtime Externa l Cyanocobala Yes Take by Emanuel sey min 1-25 mouth Seybold (VITAMIN B 10:31: - 12 OR) 22 Externa l Trazodone Yes [id number] 100mg Take 100 Jelena HCl 100 MG 1-25 mg by Seybold oral Tablet 10:31: mouth at - 22 bedtime Externa l Cyanocobala Yes Take by Emanuel sey min 1-25 mouth Seybold (VITAMIN B 10:31: - 12 OR) 22 Externa l hydroCHLORO Yes [id number] 12.5mg Take 1 Jelena thiazide 1-25 capsule Seybold 12.5 MG 00:00: (12.5 mg - oral 00 total) by Externa Capsule mouth l daily Ondansetron Yes [id number] 4mg Q.[id number] Take 1 Jelena (ZOFRAN) 4 1-25 [id number] tablet (4 Seybold MG oral 00:00: 3D mg total) - TABLET 00 by mouth Externa DISPERSIBLE every 8 l hours as needed for nausea Tirzepatide Yes [id number] 2.5mg Inject 0.5 Jelena (Mounjaro) 1-25 mL (2.5 mg Sey bold 2.5 00:00: total) - MG/0.5ML 00 into the Externa subcutaneou skin once l s Solution a week Pen-injecto r Celecoxib Yes [id number] 200mg Take 1 Jelena (CeleBREX) 1-25 capsule Seybol d 200 MG oral 00:00: (200 mg - Capsule 00 total) by Externa mouth 2 l times daily Gabapentin Yes [id number] 100mg Take 1 Jelena 100 MG oral 1-25 capsule Seybo ld Capsule 00:00: (100 mg - 00 total) by Externa mouth 3 l times daily Ondansetron 2022-0 Yes [id number] 4mg Q.[id number] Take 1 Jelena (ZOFRAN) 4 1-25 [id number] tablet (4 Seybold MG oral 00:00: 3D mg total) - TABLET 00 by mouth Externa DISPERSIBLE every 8 l hours as needed for nausea Celecoxib 2022-0 Yes [id number] 200mg Take 1 Jelena (CeleBREX) 1-25 capsule Seybol d 200 MG oral 00:00: (200 mg - Capsule 00 total) by Externa mouth 2 l times daily Gabapentin 2022-0 Yes [id number] 100mg Take 1 Jelena 100 MG oral 1-25 capsule Seybo ld Capsule 00:00: (100 mg - 00 total) by Externa mouth 3 l times daily hydroCHLORO 2022-0 3- No [id number] 12.5mg Take 1 Jelena thiazide 1-25 02-10 capsule Seybold 12.5 MG 00:00: 00:00 (12.5 mg - oral 00 :00 total) by Externa Capsule mouth l daily Nexplanon 2022-0 Yes Jelena 68 MG 1-23 Seybold subcutaneou 00:00: - s Implant 00 Externa l Nexplanon 2022-0 Yes Jelena 68 MG 1-23 Seybold subcutaneou 00:00: - s Implant 00 Externa l Ferrous 2022-0 Yes [id number] 325mg Take 1 Emanuel sey Sulfate 1-13 tablet Seybold (Iron) 325 00:00: (325 mg - (65 Fe) MG 00 total) by Exte rna oral Tablet mouth l daily (with breakfast) Docusate 2022-0 Yes [id number] 100mg Take 1 Ke lsey Sodium 1-13 capsule Seybold (Colace) 00:00: (100 mg - 100 MG oral 00 total) by Ext jonathan Capsule mouth l daily Ferrous 2022-0 Yes [id number] 325mg Take 1 Emanuel sey Sulfate 1-13 tablet Seybold (Iron) 325 00:00: (325 mg - (65 Fe) MG 00 total) by Exte rna oral Tablet mouth l daily (with breakfast) Docusate Yes [id number] 100mg Take 1 Ke lsey Sodium 1-13 capsule Seybold (Colace) 00:00: (100 mg - 100 MG oral 00 total) by Ext jonathan Capsule mouth l daily Nitrofurant 0 2022- No [id number] 100mg Take 1 Jelena oin Monohyd 1-13 -25 capsule Seyb old Macro 00:00: 00:00 (100 mg - (Macrobid) 00 :00 total) by Exte rna 100 MG oral mouth 2 l Capsule times daily Trazodone Yes 100mg Take 100 Emanuel sey HCl 100 MG 1-10 mg by Seybold oral Tablet 08:59: mouth at - 14 bedtime Externa l Benztropine 2022- No 1mg Take 1 mg Jelena Mesylate 1 1-10 01-10 by mouth Seyb old MG oral 08:58: 00:00 daily - Tablet 46 :00 Externa l Aripiprazol Yes 10mg Take 10 mg Jelena e 10 MG 1-10 by mouth 2 Seybol d oral Tablet 08:53: times - 55 daily Externa l Cyanocobala Yes Take by Emanuel sey min 1-10 mouth Seybold (VITAMIN B 08:53: - 12 OR) 55 Externa l Dose No Unknown 2-03 00:00: 00 Dose 2021-0 No Unknown 2-03 00:00: 00 Dose 2021-0 No Unknown 2-03 00:00: 00 Dose 2021-0 No Unknown 1-12 00:00: 00 Dose 2021-0 No Unknown 1-12 00:00: 00 Dose 2021-0 No Unknown 1-12 00:00: 00 Dose 2021-0 No Unknown 1-11 00:00: 00 Dose 2021-0 No Unknown 1-11 00:00: 00 Dose 2021-0 No Unknown 1-11 00:00: 00 Dose 2021-0 No Unknown 1-11 00:00: 00 Dose 2021-0 No Unknown 1-11 00:00: 00 Dose 2021-0 No Unknown 1-11 00:00: 00 LYRICA 150 2019- Yes [id number] Take 1 Univers mg capsule 2-21 capsule by ity of 00:00: mouth [place] 00 twice a Medical day for Branch neuropathi c pain as directed by physician. LYRICA 150 2019-08 Yes [id number] Take 1 Univers mg capsule 2-21 capsule by ity of 00:00: mouth [place] 00 twice a Medical day for Branch neuropathi c pain as directed by physician. LYRICA 150 2019-08 Yes [id number] Take 1 Univers mg capsule 2-21 capsule by ity of 00:00: mouth [place] 00 twice a Medical day for Branch neuropathi c pain as directed by physician. LYRICA 150 2019-08 Yes [id number] Take 1 Univers mg capsule 2-21 capsule by ity of 00:00: mouth [place] 00 twice a Medical day for Branch neuropathi c pain as directed by physician. LYRICA 150 2019-08 Yes [id number] Take 1 Univers mg capsule 2-21 capsule by ity of 00:00: mouth [place] 00 twice a Medical day for Branch neuropathi c pain as directed by physician. LYRICA 150 2019-08 Yes [id number] Take 1 Univers mg capsule 2-21 capsule by ity of 00:00: mouth [place] 00 twice a Medical day for Branch neuropathi c pain as directed by physician. LYRICA 150 2019-08 Yes [id number] Take 1 Univers mg capsule 2-21 capsule by ity of 00:00: mouth [place] 00 twice a Medical day for Branch neuropathi c pain as directed by physician. DULOXETINE 2020- No 60mg Take 60 mg Univers HCL 05-17 by mouth 3 ity of (CYMBALTA 16:16: 00:[place] (three[place]AL[place] 58 :00 times Medical daily. Branch DULOXETINE 0 2020- No 60mg Take 60 mg Univers HCL 05-17 by mouth 3 ity of (CYMBALTA 16:16: 00:[place] (three[place]AL[place] 58 :00 times Medical daily. Branch DULOXETINE 0 2020- No 60mg Take 60 mg Univers HCL 05-17 by mouth 3 ity of (CYMBALTA 16:16: 00:[place] (three[place]AL[place] 58 :00 times Medical daily. Branch aripiprazol 2020- No 5mg Take 5 mg Univers e (ABILIFY 9-17 09-17 by mouth 2 it y of ORAL) [...] times Medical daily. Branch ofloxacin 2020-0 Yes [id number] 5[drp] Place 5 Univers 0.3 % otic 9-17 [id number] Drops in ity of drops 00:00: both ears [place] 00 3 (three) Medical times Branch daily. ofloxacin 2020-0 Yes [id number] 5[drp] Place 5 Univers 0.3 % otic 9-17 [id number] Drops in ity of drops 00:00: both ears [place] 00 3 (three) Medical times Branch daily. ofloxacin 2020-0 Yes [id number] 5[drp] Place 5 Univers 0.3 % otic 9-17 [id number] Drops in ity of drops 00:00: both ears [place] 00 3 (three) Medical times Branch daily. ofloxacin 2020-0 Yes [id number] 5[drp] Place 5 Univers 0.3 % otic 9-17 [id number] Drops in ity of drops 00:00: both ears [place] 00 3 (three) Medical times Branch daily. ofloxacin 2020-0 Yes [id number] 5[drp] Place 5 Univers 0.3 % otic 9-17 [id number] Drops in ity of drops 00:00: both ears [place] 00 3 (three) Medical times Branch daily. ofloxacin 2020-0 Yes [id number] 5[drp] Place 5 Univers 0.3 % otic 9-17 [id number] Drops in ity of drops 00:00: both ears [place] 00 3 (three) Medical times Branch daily. ofloxacin 2020-0 Yes [id number] 5[drp] Place 5 Univers 0.3 % otic 9-17 [id number] Drops in ity of drops 00:00: both ears [place] 00 3 (three) Medical times Branch daily. ofloxacin 2020-0 Yes [id number] 5[drp] Place 5 Univers 0.3 % otic 9-17 [id number] Drops in ity of drops 00:00: both ears [place] 00 3 (three) Medical times Branch daily. ofloxacin 2020-0 Yes [id number] 5[drp] Place 5 Univers 0.3 % otic 9-17 [id number] Drops in ity of drops 00:00: both ears [place] 00 3 (three) Medical times Branch daily. ofloxacin 2020-0 Yes [id number] 5[drp] Place 5 Univers 0.3 % otic 9-17 [id number] Drops in ity of drops 00:00: both ears [place] 00 3 (three) Medical times Branch daily. ofloxacin 2020-0 Yes [id number] 5[drp] Place 5 Univers 0.3 % otic 9-17 [id number] Drops in ity of drops 00:00: both ears [place] 00 3 (three) Medical times Branch daily. ofloxacin 2020-0 Yes [id number] 5[drp] Place 5 Univers 0.3 % otic 9-17 [id number] Drops in ity of drops 00:00: both ears [place] 00 3 (three) Medical times Branch daily. ofloxacin 2020-0 Yes [id number] 5[drp] Place 5 Univers 0.3 % otic 9-17 [id number] Drops in ity of drops 00:00: both ears [place] 00 3 (three) Medical times Branch daily. ofloxacin 2020-0 Yes [id number] 5[drp] Place 5 Univers 0.3 % otic 9-17 [id number] Drops in ity of drops 00:00: both ears [place] 00 3 (three) Medical times Branch daily. ofloxacin 2020-0 Yes [id number] 5[drp] Place 5 Univers 0.3 % otic 9-17 [id number] Drops in ity of drops 00:00: both ears [place] 00 3 (three) Medical times Branch daily. acetaminoph 2019-0 2020- No [id number] 1{tbl} Take 1 U nivers en-codeine 05-17 09-25 tablet by ity of (TYLENOL-CO 00:00: 04:59 [place] DEINE #3) 00 :00 every 4 Medical 300-30 mg (four) Branch tablet hours as needed for Pain (scale 7-10) for up to 7 days. Indication s: acute pain acetaminoph 2019-2019- No [id number] 1{tbl} Take 1 U nivers en-codeine 05-17- tablet by ity of (TYLENOL-CO 00:00: 04:59 mouth [place] DEINE #3) 00 :00 every 4 Medical 300-30 mg (four) Branch tablet hours as needed for Pain (scale 7-10) for up to 7 days. Indication s: acute pain acetaminoph 2019- No [id number] 1{tbl} Take 1 U nivers en-codeine 05-17 tablet by ity of (TYLENOL-CO 00:00: 04:59 mouth [place] DEINE #3) 00 :00 every 4 Medical 300-30 mg (four) Branch tablet hours as needed for Pain (scale 7-10) for up to 7 days. Indication s: acute pain metoprolol 2020-0 Yes [id number] 50mg Take 1 Un nneka succinate 7-09 tablet by ity o f XL 50 mg 24 00:00: mouth [place] hr tablet 00 daily. Medical Branch hydroCHLORO 2020-0 Yes [id number] 25mg Take 1 Univers thiazide 25 - tablet by ity of mg tablet 00:00: mouth [place] 00 daily. Medical Branch baclofen 10 2019-0 Yes [id number] 10mg Take 1 Univers mg tablet 03-08 [id number] tablet by ity of 00:00: mouth 3 [place] 00 (three) Medical times Branch daily as needed for Pain (scale 4-6). metoprolol 2020-0 Yes [id number] 50mg Take 1 Un nneka succinate 7-09 tablet by ity o f XL 50 mg 24 00:00: mouth [place] hr tablet 00 daily. Medical Branch hydroCHLORO 2020-0 Yes [id number] 25mg Take 1 Univers thiazide 25 7-09 tablet by ity of mg tablet 00:00: mouth [place] 00 daily. Medical Branch baclofen 10 2020-0 Yes [id number] 10mg Take 1 Univers mg tablet 03-08 [id number] tablet by ity of 00:00: mouth 3 [place] 00 (three) Medical times Branch daily as needed for Pain (scale 4-6). metoprolol 2020-0 Yes [id number] 50mg Take 1 Un nneka succinate 7-09 tablet by ity o f XL 50 mg 24 00:00: mouth [place] hr tablet 00 daily. Medical Branch hydroCHLORO 2020-0 Yes [id number] 25mg Take 1 Univers thiazide 25 7-09 tablet by ity of mg tablet 00:00: mouth [place] 00 daily. Medical Branch baclofen 10 2020-0 Yes [id number] 10mg Take 1 Univers mg tablet 7 [id number] tablet by ity of 00:00: mouth 3 [place] 00 (three) Medical times Branch daily as needed for Pain (scale 4-6). metoprolol 2020-0 Yes [id number] 50mg Take 1 Un nneka succinate 7-09 tablet by ity o f XL 50 mg 24 00:00: mouth [place] hr tablet 00 daily. Medical Branch hydroCHLORO 2019-0 Yes [id number] 25mg Take 1 Univers thiazide 25 7-09 tablet by ity of mg tablet 00:00: mouth [place] 00 daily. Medical Branch baclofen 10 2019-0 Yes [id number] 10mg Take 1 Univers mg tablet 03-08 [id number] tablet by ity of 00:00: mouth 3 [place] 00 (three) Medical times Branch daily as needed for Pain (scale 4-6). metoprolol 2020-0 Yes [id number] 50mg Take 1 Un nneka succinate 7-09 tablet by ity o f XL 50 mg 24 00:00: mouth [place] hr tablet 00 daily. Medical Branch hydroCHLORO 2019-0 Yes [id number] 25mg Take 1 Univers thiazide 25 7-09 tablet by ity of mg tablet 00:00: mouth [place] 00 daily. Medical Branch baclofen 10 2019-0 Yes [id number] 10mg Take 1 Univers mg tablet 7 [id number] tablet by ity of 00:00: mouth 3 [place] 00 (three) Medical times Branch daily as needed for Pain (scale 4-6). metoprolol 2020-0 Yes [id number] 50mg Take 1 Un nneka succinate 7-09 tablet by ity o f XL 50 mg 24 00:00: mouth [place] hr tablet 00 daily. Medical Branch hydroCHLORO 2020-0 Yes [id number] 25mg Take 1 Univers thiazide 25 7-09 tablet by ity of mg tablet 00:00: mouth [place] 00 daily. Medical Branch baclofen 10 2019-0 Yes [id number] 10mg Take 1 Univers mg tablet 7- [id number] tablet by ity of 00:00: mouth 3 [place] 00 (three) Medical times Branch daily as needed for Pain (scale 4-6). metoprolol 2020-0 Yes [id number] 50mg Take 1 Un nneka succinate 7-09 tablet by ity o f XL 50 mg 24 00:00: mouth [place] hr tablet 00 daily. Medical Branch hydroCHLORO 2020-0 Yes [id number] 25mg Take 1 Univers thiazide 25 7-09 tablet by ity of mg tablet 00:00: mouth [place] 00 daily. Medical Branch baclofen 10 2020-0 Yes [id number] 10mg Take 1 Univers mg tablet - [id number] tablet by ity of 00:00: mouth 3 [place] 00 (three) Medical times Branch daily as needed for Pain (scale 4-6). metoprolol 2020-0 Yes [id number] 50mg Take 1 Un nneka succinate 7-09 tablet by ity o f XL 50 mg 24 00:00: mouth [place] hr tablet 00 daily. Medical Branch hydroCHLORO 2020-0 Yes [id number] 25mg Take 1 Univers thiazide 25 7-09 tablet by ity of mg tablet 00:00: mouth [place] 00 daily. Medical Branch baclofen 10 2020-0 Yes [id number] 10mg Take 1 Univers mg tablet 03-08 [id number] tablet by ity of 00:00: mouth 3 [place] 00 (three) Medical times Branch daily as needed for Pain (scale 4-6). metoprolol 2020-0 Yes [id number] 50mg Take 1 Un nneka succinate 7-09 tablet by ity o f XL 50 mg 24 00:00: mouth [place] hr tablet 00 daily. Medical Branch hydroCHLORO 2020-0 Yes [id number] 25mg Take 1 Univers thiazide 25 7-09 tablet by ity of mg tablet 00:00: mouth [place] 00 daily. Medical Branch baclofen 10 2020-0 Yes [id number] 10mg Take 1 Univers mg tablet 7- [id number] tablet by ity of 00:00: mouth 3 [place] 00 (three) Medical times Branch daily as needed for Pain (scale 4-6). metoprolol 2020-0 Yes [id number] 50mg Take 1 Un nneka succinate 7-09 tablet by ity o f XL 50 mg 24 00:00: mouth [place] hr tablet 00 daily. Medical Branch hydroCHLORO 2020-0 Yes [id number] 25mg Take 1 Univers thiazide 25 7-09 tablet by ity of mg tablet 00:00: mouth [place] 00 daily. Medical Branch baclofen 10 2020-0 Yes [id number] 10mg Take 1 Univers mg tablet 7- [id number] tablet by ity of 00:00: mouth 3 [place] 00 (three) Medical times Branch daily as needed for Pain (scale 4-6). metoprolol 2020-0 Yes [id number] 50mg Take 1 Un nneka succinate 7-09 tablet by ity o f XL 50 mg 24 00:00: mouth [place] hr tablet 00 daily. Medical Branch hydroCHLORO 2020-0 Yes [id number] 25mg Take 1 Univers thiazide 25 7-09 tablet by ity of mg tablet 00:00: mouth [place] 00 daily. Medical Branch baclofen 10 2020-0 Yes [id number] 10mg Take 1 Univers mg tablet 7 [id number] tablet by ity of 00:00: mouth 3 [place] 00 (three) Medical times Branch daily as needed for Pain (scale 4-6). metoprolol 2020-0 Yes [id number] 50mg Take 1 Un nneka succinate 7-09 tablet by ity o f XL 50 mg 24 00:00: mouth [place] hr tablet 00 daily. Medical Branch hydroCHLORO 2020-0 Yes [id number] 25mg Take 1 Univers thiazide 25 7-09 tablet by ity of mg tablet 00:00: mouth [place] 00 daily. Medical Branch baclofen 10 2020-0 Yes [id number] 10mg Take 1 Univers mg tablet 7 [id number] tablet by ity of 00:00: mouth 3 [place] 00 (three) Medical times Branch daily as needed for Pain (scale 4-6). metoprolol 2020-0 Yes [id number] 50mg Take 1 Un nneka succinate 7-09 tablet by ity o f XL 50 mg 24 00:00: mouth [place] hr tablet 00 daily. Medical Branch hydroCHLORO 2020-0 Yes [id number] 25mg Take 1 Univers thiazide 25 7-09 tablet by ity of mg tablet 00:00: mouth [place] 00 daily. Medical Branch baclofen 10 2020-0 Yes [id number] 10mg Take 1 Univers mg tablet 7- [id number] tablet by ity of 00:00: mouth 3 [place] 00 (three) Medical times Branch daily as needed for Pain (scale 4-6). metoprolol 2020-0 Yes [id number] 50mg Take 1 Un nneka succinate 7-09 tablet by ity o f XL 50 mg 24 00:00: mouth [place] hr tablet 00 daily. Medical Branch hydroCHLORO 2020-0 Yes [id number] 25mg Take 1 Univers thiazide 25 7-09 tablet by ity of mg tablet 00:00: mouth [place] 00 daily. Medical Branch baclofen 10 2020-0 Yes [id number] 10mg Take 1 Univers mg tablet 7 [id number] tablet by ity of 00:00: mouth 3 [place] 00 (three) Medical times Branch daily as needed for Pain (scale 4-6). metoprolol 2020-0 Yes [id number] 50mg Take 1 Un nneka succinate 7-09 tablet by ity o f XL 50 mg 24 00:00: mouth [place] hr tablet 00 daily. Medical Branch hydroCHLORO 2020-0 Yes [id number] 25mg Take 1 Univers thiazide 25 7-09 tablet by ity of mg tablet 00:00: mouth [place] 00 daily. Medical Branch baclofen 10 2019-0 Yes [id number] 10mg Take 1 Univers mg tablet 03-08 [id number] tablet by ity of 00:00: mouth 3 [place] 00 (three) Medical times Branch daily as needed for Pain (scale 4-6). metoprolol 2020-0 Yes [id number] 50mg Take 1 Un nneka succinate 7-09 tablet by ity o f XL 50 mg 24 00:00: mouth [place] hr tablet 00 daily. Medical Branch hydroCHLORO 2020-0 Yes [id number] 25mg Take 1 Univers thiazide 25 7-09 tablet by ity of mg tablet 00:00: mouth [place] 00 daily. Medical Branch baclofen 10 2019-0 Yes [id number] 10mg Take 1 Univers mg tablet 03-08 [id number] tablet by ity of 00:00: mouth 3 [place] 00 (three) Medical times Branch daily as needed for Pain (scale 4-6). metoprolol 2020-0 Yes [id number] 50mg Take 1 Un nneka succinate 7-09 tablet by ity o f XL 50 mg 24 00:00: mouth [place] hr tablet 00 daily. Medical Branch hydroCHLORO 2020-0 Yes [id number] 25mg Take 1 Univers thiazide 25 7-09 tablet by ity of mg tablet 00:00: mouth [place] 00 daily. Medical Branch baclofen 10 2020-0 Yes [id number] 10mg Take 1 Univers mg tablet 7- [id number] tablet by ity of 00:00: mouth 3 [place] 00 (three) Medical times Branch daily as needed for Pain (scale 4-6). metoprolol 2020-0 Yes [id number] 50mg Take 1 Un nneka succinate 7-09 tablet by ity o f XL 50 mg 24 00:00: mouth [place] hr tablet 00 daily. Medical Branch hydroCHLORO 2020-0 Yes [id number] 25mg Take 1 Univers thiazide 25 7-09 tablet by ity of mg tablet 00:00: mouth [place] 00 daily. Medical Branch baclofen 10 2020-0 Yes [id number] 10mg Take 1 Univers mg tablet 03-08 [id number] tablet by ity of 00:00: mouth 3 [place] 00 (three) Medical times Branch daily as needed for Pain (scale 4-6). metoprolol 2020-0 Yes [id number] 50mg Take 1 Un nneka succinate 7-09 tablet by ity o f XL 50 mg 24 00:00: mouth [place] hr tablet 00 daily. Medical Branch hydroCHLORO 2020-0 Yes [id number] 25mg Take 1 Univers thiazide 25 7-09 tablet by ity of mg tablet 00:00: mouth [place] 00 daily. Medical Branch baclofen 10 2020-0 Yes [id number] 10mg Take 1 Univers mg tablet 03-08 [id number] tablet by ity of 00:00: mouth 3 [place] 00 (three) Medical times Branch daily as needed for Pain (scale 4-6). metoprolol 2020-0 Yes [id number] 50mg Take 1 Un nneka succinate 7-09 tablet by ity o f XL 50 mg 24 00:00: mouth [place] hr tablet 00 daily. Medical Branch hydroCHLORO 2020-0 Yes [id number] 25mg Take 1 Univers thiazide 25 7-09 tablet by ity of mg tablet 00:00: mouth [place] 00 daily. Medical Branch baclofen 10 2020-0 Yes [id number] 10mg Take 1 Univers mg tablet 03-08 [id number] tablet by ity of 00:00: mouth 3 [place] 00 (three) Medical times Branch daily as needed for Pain (scale 4-6). metoprolol 2020-0 Yes [id number] 50mg Take 1 Un nneka succinate 7-09 tablet by ity o f XL 50 mg 24 00:00: mouth [place] hr tablet 00 daily. Medical Branch hydroCHLORO 2020-0 Yes [id number] 25mg Take 1 Univers thiazide 25 7-09 tablet by ity of mg tablet 00:00: mouth [place] 00 daily. Medical Branch baclofen 10 2020-0 Yes [id number] 10mg Take 1 Univers mg tablet 7- [id number] tablet by ity of 00:00: mouth 3 [place] 00 (three) Medical times Branch daily as needed for Pain (scale 4-6). metoprolol 2020-0 Yes [id number] 50mg Take 1 Un nneka succinate 7-09 tablet by ity o f XL 50 mg 24 00:00: mouth [place] hr tablet 00 daily. Medical Branch hydroCHLORO 2020-0 Yes [id number] 25mg Take 1 Univers thiazide 25 7-09 tablet by ity of mg tablet 00:00: mouth [place] 00 daily. Medical Branch baclofen 10 2020-0 Yes [id number] 10mg Take 1 Univers mg tablet 7 [id number] tablet by ity of 00:00: mouth 3 [place] 00 (three) Medical times Branch daily as needed for Pain (scale 4-6). metoprolol 2020-0 Yes [id number] 50mg Take 1 Un nneka succinate 7-09 tablet by ity o f XL 50 mg 24 00:00: mouth [place] hr tablet 00 daily. [facility] hydroCHLORO 2020-0 Yes [id number] 25mg Take 1 [facility] thiazide 25 7-09 tablet by ity of mg tablet 00:00: mouth [place] 00 daily. [facility] baclofen 10 2020-0 Yes [id number] 10mg Take 1 [facility] mg tablet 03-08 [id number] tablet by ity of 00:00: mouth 3 [place] 00 (three) Medical times Branch daily as needed for Pain (scale 4-6). metoprolol 2020-0 Yes [id number] 50mg Take 1 [facility] nneka succinate 7-09 tablet by ity o f XL 50 mg 24 00:00: mouth [place] hr tablet 00 daily. [facility] hydroCHLORO 2020-0 Yes [id number] 25mg Take 1 [facility] thiazide 25 7-09 tablet by ity of mg tablet 00:00: mouth [place] 00 daily. [facility] baclofen 10 2020-0 Yes [id number] 10mg Take 1 [facility] mg tablet 7 [id number] tablet by ity of 00:00: mouth 3 [place] 00 (three) Medical times Branch daily as needed for Pain (scale 4-6). metoprolol 2020-0 Yes [id number] 50mg Take 1 Un nneka succinate 7- tablet by ity o f XL 50 mg 24 00:00: mouth [place] hr tablet 00 daily. [facility] hydroCHLORO 2020-0 Yes [id number] 25mg Take 1 [facility] thiazide 25 - tablet by ity of mg tablet 00:00: mouth [place] 00 daily. [facility] baclofen 10 2020-0 Yes [id number] 10mg Take 1 [facility] mg tablet 03-08 [id number] tablet by ity of 00:00: mouth 3 [place] 00 (three) Medical times Branch daily as needed for Pain (scale 4-6). DULOXETINE 2020-0 Yes 60mg Take 60 mg U nivers HCL 2-25 by mouth 3 ity of (CYMBALTA 14:58: (three) [place] ORAL) 32 times Medical daily. Branch VITAMIN B 2020-0 Yes Take by Unive rs COMPLEX 2-25 mouth. ity of ORAL 14:58: [place] [address] [facility] traZODONE 2020-0 Yes 100mg Take 100 [facility] vers 100 mg 2-25 mg by ity of tablet 14:58: mouth at [place] [address] bedtime. Medical Branch benztropine 2020-0 Yes 1mg Take 1 mg U nivers 1 mg tablet 2-25 by mouth ity of 14:58: daily. [place] [address] [facility] DULOXETINE 2020-0 Yes 60mg Take 60 mg U nivers HCL 2-25 by mouth 3 ity of (CYMBALTA 14:58: (three) [place] ORAL) 32 times Medical daily. Branch VITAMIN B 2020-0 Yes Take by Unive rs COMPLEX 2-25 mouth. ity of ORAL 14:58: [place] [address] [facility] traZODONE 2020-0 Yes 100mg Take 100 [facility] vers 100 mg 2-25 mg by ity of tablet 14:58: mouth at [place] [address] bedtime. Medical [facility] benztropine 2020-0 Yes 1mg Take 1 mg U nivers 1 mg tablet 2-25 by mouth ity of 14:58: daily. [place] [address] [facility] DULOXETINE 2020-0 Yes 60mg Take 60 mg U nivers HCL 2-25 by mouth 3 ity of (CYMBALTA 14:58: (three) [place] ORAL) 32 times Medical daily. Branch VITAMIN B 2020-0 Yes Take by Unive rs COMPLEX 2-25 mouth. ity of ORAL 14:58: [place] [address] [facility] traZODONE 2020-0 Yes 100mg Take 100 [facility] vers 100 mg 2-25 mg by ity of tablet 14:58: mouth at [place] [address] bedtime. Medical [facility] benztropine 2020-0 Yes 1mg Take 1 mg U nivers 1 mg tablet 2-25 by mouth ity of 14:58: daily. [place] [address] [facility] DULOXETINE 2020-0 Yes 60mg Take 60 mg U nivers HCL 2-25 by mouth 3 ity of (CYMBALTA 14:58: (three) [place] ORAL) 32 times Medical daily. Branch VITAMIN B 2020-0 Yes Take by Unive rs COMPLEX 2-25 mouth. ity of ORAL 14:58: [place] [address] [facility] traZODONE 2020-0 Yes 100mg Take 100 [facility] vers 100 mg 2-25 mg by ity of tablet 14:58: mouth at [place] [address] bedtime. Medical Branch benztropine 2020-0 Yes 1mg Take 1 mg U nivers 1 mg tablet 2-25 by mouth ity of 14:58: daily. [place] [address] [facility] DULOXETINE 2020-0 Yes 60mg Take 60 mg U nivers HCL 2-25 by mouth 3 ity of (CYMBALTA 14:58: (three) [place] ORAL) 32 times Medical daily. Branch VITAMIN B 2020-0 Yes Take by Unive rs COMPLEX 2-25 mouth. ity of ORAL 14:58: [place] [address] [facility] traZODONE 2020-0 Yes 100mg Take 100 [facility] vers 100 mg 2-25 mg by ity of tablet 14:58: mouth at [place] [address] bedtime. Medical [facility] benztropine 2020-0 Yes 1mg Take 1 mg U nivers 1 mg tablet 2-25 by mouth ity of 14:58: daily. [place] [address] [facility] DULOXETINE 2020-0 Yes 60mg Take 60 mg U nivers HCL 2-25 by mouth 3 ity of (CYMBALTA 14:58: (three) [place] ORAL) 32 times Medical daily. Branch VITAMIN B 2020-0 Yes Take by Unive rs COMPLEX 2-25 mouth. ity of ORAL 14:58: [place] [address] [facility] traZODONE 2020-0 Yes 100mg Take 100 [facility] vers 100 mg 2-25 mg by ity of tablet 14:58: mouth at [place] [address] bedtime. Medical [facility] benztropine 2020-0 Yes 1mg Take 1 mg U nivers 1 mg tablet 2-25 by mouth ity of 14:58: daily. [place] [address] [facility] DULOXETINE 2020-0 Yes 60mg Take 60 mg U nivers HCL 2-25 by mouth 3 ity of (CYMBALTA 14:58: (three) [place] ORAL) 32 times Medical daily. Branch VITAMIN B 2020-0 Yes Take by Unive rs COMPLEX 2-25 mouth. ity of ORAL 14:58: [place] [address] [facility] traZODONE 2020-0 Yes 100mg Take 100 [facility] vers 100 mg 2-25 mg by ity of tablet 14:58: mouth at [place] [address] bedtime. Medical [facility] benztropine 2020-0 Yes 1mg Take 1 mg U nivers 1 mg tablet 2-25 by mouth ity of 14:58: daily. [place] [address] [facility] DULOXETINE 2020-0 Yes 60mg Take 60 mg U nivers HCL 2-25 by mouth 3 ity of (CYMBALTA 14:58: (three) [place] ORAL) 32 times Medical daily. Branch VITAMIN B 2020-0 Yes Take by Unive rs COMPLEX 2-25 mouth. ity of ORAL 14:58: [place] [address] [facility] traZODONE 2020-0 Yes 100mg Take 100 [facility] vers 100 mg 2-25 mg by ity of tablet 14:58: mouth at [place] [address] bedtime. Medical [facility] benztropine 2020-0 Yes 1mg Take 1 mg U nivers 1 mg tablet 2-25 by mouth ity of 14:58: daily. [place] [address] [facility] DULOXETINE 2020-0 Yes 60mg Take 60 mg U nivers HCL 2-25 by mouth 3 ity of (CYMBALTA 14:58: (three) [place] ORAL) 32 times Medical daily. Branch VITAMIN B 2020-0 Yes Take by Unive rs COMPLEX 2-25 mouth. ity of ORAL 14:58: [place] [address] [facility] traZODONE 2020-0 Yes 100mg Take 100 [facility] vers 100 mg 2-25 mg by ity of tablet 14:58: mouth at [place] [address] bedtime. Medical Branch benztropine 2020-0 Yes 1mg Take 1 mg U nivers 1 mg tablet 2-25 by mouth ity of 14:58: daily. [place] [address] [facility] DULOXETINE 2020-0 Yes 60mg Take 60 mg U nivers HCL 2-25 by mouth 3 ity of (CYMBALTA 14:58: (three) [place] ORAL) 32 times Medical daily. Branch VITAMIN B 2020-0 Yes Take by Unive rs COMPLEX 2-25 mouth. ity of ORAL 14:58: [place] [address] [facility] traZODONE 2020-0 Yes 100mg Take 100 [facility] vers 100 mg 2-25 mg by ity of tablet 14:58: mouth at [place] [address] bedtime. Medical Branch benztropine 2020-0 Yes 1mg Take 1 mg U nivers 1 mg tablet 2-25 by mouth ity of 14:58: daily. [place] [address] [facility] DULOXETINE 2020-0 Yes 60mg Take 60 mg U nivers HCL 2-25 by mouth 3 ity of (CYMBALTA 14:58: (three) [place] ORAL) 32 times Medical daily. Branch VITAMIN B 2020-0 Yes Take by Unive rs COMPLEX 2-25 mouth. ity of ORAL 14:58: [place] [address] [facility] traZODONE 2020-0 Yes 100mg Take 100 [facility] vers 100 mg 2-25 mg by ity of tablet 14:58: mouth at [place] [address] bedtime. Medical Branch benztropine 2020-0 Yes 1mg Take 1 mg U nivers 1 mg tablet 2-25 by mouth ity of 14:58: daily. [place] [address] [facility] DULOXETINE 2020-0 Yes 60mg Take 60 mg U nivers HCL 2-25 by mouth 3 ity of (CYMBALTA 14:58: (three) [place] ORAL) 32 times Medical daily. Branch VITAMIN B 2020-0 Yes Take by Unive rs COMPLEX 2-25 mouth. ity of ORAL 14:58: [place] [address] [facility] traZODONE 2020-0 Yes 100mg Take 100 [facility] vers 100 mg 2-25 mg by ity of tablet 14:58: mouth at [place] [address] bedtime. Medical [facility] benztropine 2020-0 Yes 1mg Take 1 mg U nivers 1 mg tablet 2-25 by mouth ity of 14:58: daily. [place] [address] [facility] DULOXETINE 2020-0 Yes 60mg Take 60 mg U nivers HCL 2-25 by mouth 3 ity of (CYMBALTA 14:58: (three) [place] ORAL) 32 times Medical daily. Branch VITAMIN B 2020-0 Yes Take by Unive rs COMPLEX 2-25 mouth. ity of ORAL 14:58: [place] [address] [facility] traZODONE 2020-0 Yes 100mg Take 100 [facility] vers 100 mg 2-25 mg by ity of tablet 14:58: mouth at [place] [address] bedtime. Medical [facility] benztropine 2020-0 Yes 1mg Take 1 mg U nivers 1 mg tablet 2-25 by mouth ity of 14:58: daily. [place] [address] [facility] DULOXETINE 2020-0 Yes 60mg Take 60 mg U nivers HCL 2-25 by mouth 3 ity of (CYMBALTA 14:58: (three) [place] ORAL) 32 times Medical daily. Branch VITAMIN B 2020-0 Yes Take by Unive rs COMPLEX 2-25 mouth. ity of ORAL 14:58: [place] [address] [facility] traZODONE 2020-0 Yes 100mg Take 100 [facility] vers 100 mg 2-25 mg by ity of tablet 14:58: mouth at [place] [address] bedtime. Medical Branch benztropine 2020-0 Yes 1mg Take 1 mg U nivers 1 mg tablet 2-25 by mouth ity of 14:58: daily. [place] [address] [facility] DULOXETINE 2020-0 Yes 60mg Take 60 mg U nivers HCL 2-25 by mouth 3 ity of (CYMBALTA 14:58: (three) [place] ORAL) 32 times Medical daily. Branch VITAMIN B 2020-0 Yes Take by [facility] ers COMPLEX 2-25 mouth. ity of ORAL 14:58: [place] [address] [facility] traZODONE 2020-0 Yes 100mg Take 100 [facility] vers 100 mg 2-25 mg by ity of tablet 14:58: mouth at [place] [address] bedtime. Medical Branch benztropine 2020-0 Yes 1mg Take 1 mg U nivers 1 mg tablet 2-25 by mouth ity of 14:58: daily. [place] [address] [facility] DULOXETINE 2020-0 Yes 60mg Take 60 mg U nivers HCL 2-25 by mouth 3 ity of (CYMBALTA 14:58: (three) [place] ORAL) 32 times Medical daily. Branch VITAMIN B 2020-0 Yes Take by Unive rs COMPLEX 2-25 mouth. ity of ORAL 14:58: [place] [address] [facility] traZODONE 2020-0 Yes 100mg Take 100 [facility] vers 100 mg 2-25 mg by ity of tablet 14:58: mouth at [place] [address] bedtime. Medical Branch benztropine 2020-0 Yes 1mg Take 1 mg U nivers 1 mg tablet 2-25 by mouth ity of 14:58: daily. [address] DULOXETINE 2020-0 Yes 60mg Take 60 mg U nivers HCL 2-25 by mouth 3 ity of (CYMBALTA 14:58: (three) [place] ORAL) 32 times Medical daily. Branch VITAMIN B 2020-0 Yes Take by Unive rs COMPLEX 2-25 mouth. ity of ORAL 14:58: [address] Branch traZODONE 2020-0 Yes 100mg Take 100 [facility] vers 100 mg 2-25 mg by ity of tablet 14:58: mouth at [place] [address] bedtime. Medical Branch benztropine 2020-0 Yes 1mg Take 1 mg U nivers 1 mg tablet 2-25 by mouth ity of 14:58: daily. [address] VITAMIN B 2020-0 Yes Take by Unive rs COMPLEX 2-25 mouth. ity of ORAL 14:58: [address] traZODONE 2020-0 Yes 100mg Take 100 [facility] vers 100 mg 2-25 mg by ity of tablet 14:58: mouth at [place] [address] bedtime. Medical [facility] benztropine 2020-0 Yes 1mg Take 1 mg U nivers 1 mg tablet 2-25 by mouth ity of 14:58: daily. [address] VITAMIN B 2020-0 Yes Take by Unive rs COMPLEX 2-25 mouth. ity of ORAL 14:58: [address] traZODONE 2020-0 Yes 100mg Take 100 [facility] vers 100 mg 2-25 mg by ity of tablet 14:58: mouth at [place] [address] bedtime. Medical [facility] benztropine 2020-0 Yes 1mg Take 1 mg U nivers 1 mg tablet 2-25 by mouth ity of 14:58: daily. [address] VITAMIN B 2020-0 Yes Take by Unive rs COMPLEX 2-25 mouth. ity of ORAL 14:58: [address] traZODONE 2020-0 Yes 100mg Take 100 [facility] vers 100 mg 2-25 mg by ity of tablet 14:58: mouth at [place] [address] bedtime. Medical [facility] benztropine 2020-0 Yes 1mg Take 1 mg U nivers 1 mg tablet 2-25 by mouth ity of 14:58: daily. [address] VITAMIN B 2020-0 Yes Take by Unive rs COMPLEX 2-25 mouth. ity of ORAL 14:58: [address] Branch traZODONE 2020-0 Yes 100mg Take 100 [facility] vers 100 mg 2-25 mg by ity of tablet 14:58: mouth at [place] [address] bedtime. Medical [facility] benztropine 2020-0 Yes 1mg Take 1 mg U nivers 1 mg tablet 2-25 by mouth ity of 14:58: daily. [address] VITAMIN B 2020-0 Yes Take by Unive rs COMPLEX 2-25 mouth. ity of ORAL 14:58: [address] Branch traZODONE 2020-0 Yes 100mg Take 100 [facility] vers 100 mg 2-25 mg by ity of tablet 14:58: mouth at [place] [address] bedtime. Medical Branch benztropine 2020-0 Yes 1mg Take 1 mg U nivers 1 mg tablet 2-25 by mouth ity of 14:58: daily. [address] VITAMIN B 2020-0 Yes Take by Unive rs COMPLEX 2-25 mouth. ity of ORAL 14:58: [address] traZODONE 2020-0 Yes 100mg Take 100 [facility] vers 100 mg 2-25 mg by ity of tablet 14:58: mouth at [place] [address] bedtime. Medical [facility] benztropine 2020-0 Yes 1mg Take 1 mg U nivers 1 mg tablet 2-25 by mouth ity of 14:58: daily. [address] VITAMIN B 2020-0 Yes Take by Unive rs COMPLEX 2-25 mouth. ity of ORAL 14:58: [address] traZODONE 2020-0 Yes 100mg Take 100 [facility] vers 100 mg 2-25 mg by ity of tablet 14:58: mouth at [place] [address] bedtime. [facility] benztropine 2020-0 Yes 1mg Take 1 mg U nivers 1 mg tablet 2-25 by mouth ity of 14:58: daily. [address] VITAMIN B 2020-0 Yes Take by Unive rs COMPLEX 2-25 mouth. ity of ORAL 14:58: [address] traZODONE 2020-0 Yes 100mg Take 100 [facility] vers 100 mg 2-25 mg by ity of tablet 14:58: mouth at [place] [address] bedtime. [facility] benztropine 2020-0 Yes 1mg Take 1 mg U nivers 1 mg tablet 2-25 by mouth ity of 14:58: daily. [address] VITAMIN B 2020-0 Yes Take by Unive rs COMPLEX 2-25 mouth. ity of ORAL 14:58: [address] traZODONE 2020-0 Yes 100mg Take 100 [facility] vers 100 mg 2-25 mg by ity of tablet 14:58: mouth at [place] [address] bedtime. Medical [facility] benztropine 2020-0 Yes 1mg Take 1 mg U nivers 1 mg tablet 2-25 by mouth ity of 14:58: daily. [address] VITAMIN B 2020-0 Yes Take by Unive rs COMPLEX 2-25 mouth. ity of ORAL 14:58: [address] traZODONE 2020-0 Yes 100mg Take 100 [facility] vers 100 mg 2-25 mg by ity of tablet 14:58: mouth at [place] [address] bedtime. Medical Branch benztropine 2020-0 Yes 1mg Take 1 mg U nivers 1 mg tablet 2-25 by mouth ity of 14:58: daily. [address] VITAMIN B 2020-0 Yes Take by Unive rs COMPLEX 2-25 mouth. ity of ORAL 14:58: [address] traZODONE 2020-0 Yes 100mg Take 100 [facility] vers 100 mg 2-25 mg by ity of tablet 14:58: mouth at [place] [address] bedtime. Medical [facility] benztropine 2020-0 Yes 1mg Take 1 mg U nivers 1 mg tablet 2-25 by mouth ity of 14:58: daily. [address] VITAMIN B 2020-0 Yes Take by Unive rs COMPLEX 2-25 mouth. ity of ORAL 14:58: [address] traZODONE 2020-0 Yes 100mg Take 100 [facility] vers 100 mg 2-25 mg by ity of tablet 14:58: mouth at [place] [address] bedtime. Medical Branch benztropine 2020-0 Yes 1mg Take 1 mg U nivers 1 mg tablet 2-25 by mouth ity of 14:58: daily. [address] VITAMIN B 2020-0 Yes Take by Unive rs COMPLEX 2-25 mouth. ity of ORAL 14:58: [address] traZODONE 2020-0 Yes 100mg Take 100 [facility] vers 100 mg 2-25 mg by ity of tablet 14:58: mouth at [place] [address] bedtime. Medical Branch benztropine 2020-0 Yes 1mg Take 1 mg U nivers 1 mg tablet 2-25 by mouth ity of 14:58: daily. [address] Branch VITAMIN B 2020-0 Yes Take by Unive rs COMPLEX 2-25 mouth. ity of ORAL 14:58: [address] Branch traZODONE 2020-0 Yes 100mg Take 100 [facility] vers 100 mg 2-25 mg by ity of tablet 14:58: mouth at [place] [address] bedtime. Medical Branch benztropine 2020-0 Yes 1mg Take 1 mg U nivers 1 mg tablet 2-25 by mouth ity of 14:58: daily. [address] VITAMIN B 2020-0 Yes Take by Unive rs COMPLEX 2-25 mouth. ity of ORAL 14:58: [address] traZODONE 2020-0 Yes 100mg Take 100 [facility] vers 100 mg 2-25 mg by ity of tablet 14:58: mouth at [place] [address] bedtime. Medical Branch benztropine 2020-0 Yes 1mg Take 1 mg U nivers 1 mg tablet 2-25 by mouth ity of 14:58: daily. [address] Branch aripiprazol 2020-0 Yes 5mg Take 5 [...] COMPLEX 2-24 mouth. ity of ORAL 17:15: [place] [facility] traZODONE 2020-0 Yes 100mg Take 100 [facility] vers 100 mg 2-24 mg by ity of tablet 17:15: mouth at [place] [address] bedtime. Medical Branch DULOXETINE 2020-0 Yes 60mg [...] by ity of tablet 17:15: mouth at [place] 45 bedtime. [facility] DULOXETINE 2020-0 Yes 60mg Take 60 mg U nivers HCL 2-24 by mouth 3 ity of (CYMBALTA 17:15: (three) [place] ORAL) 45 times Medical daily. Branch VITAMIN B 2019- Yes Take by Unive rs COMPLEX 2-24 mouth. ity of ORAL 17:15: [place] 45 [facility] traZODONE 2019-0 Yes 100mg Take 100 [facility] vers 100 mg 2-24 mg by ity of tablet 17:15: mouth at [place] 45 bedtime. [facility] OLANZapine 2019-0 2020- No 20mg Take 20 mg [facility] 20 mg 2-24 -24 by mouth ity of tablet 17:15: 00:00 at [place] 35 :00 bedtime. [facility] OLANZapine 2019-0 2020- No 20mg Take 20 mg [facility] 20 mg 2-24 10-24 by mouth ity of tablet 17:15: 00:00 at [place] 35 :00 bedtime. [facility] OLANZapine 2019- 2020- No 20mg Take 20 mg [facility] 20 mg 2-24 10-24 by mouth ity of tablet 17:15: 00:00 at [place] 35 :00 bedtime. [facility] OLANZapine 2019-0 2020- No 10mg Take 10 mg [facility] (ZYPREXA) 2-24 10-24 by mouth 2 ity of 10 mg 17:15: 00:00 (two) [place] tablet 26 :00 times Medical daily. Branch OLANZapine 2019-0 2020- No 10mg Take 10 mg [facility] (ZYPREXA) 2-24 10-24 by mouth 2 ity of 10 mg 17:15: 00:00 (two) [place] tablet 26 :00 times Medical daily. Branch OLANZapine 0 2020- No 10mg Take 10 mg [facility] (ZYPREXA) 2-24 10-24 by mouth 2 ity of 10 mg 17:15: 00:00 (two) [place] tablet 26 :00 times Medical daily. Branch DULoxetine 2019-0 2020- No Take 3 [facility] ers 30 mg 2-24 -24 capsules ity of capsule 17:15: 00:00 by mouth [place] 09 :00 daily. Medical [facility] DULoxetine 2019- 2020- No Take 3 [facility] ers 30 mg 2-24 02-24 capsules ity of capsule 17:15: 00:00 by mouth [place] 09 :00 daily. [facility] DULoxetine 2019-0 2020- No Take 3 [facility] ers 30 mg 2-24 02-24 capsules ity of capsule 17:15: 00:00 by mouth [place] 09 :00 daily. [facility] metoprolol 2020-0 Yes [id number] 50mg Take 1 Un nneka succinate 2-24 tablet by ity o f XL 50 mg 24 00:00: mouth [place] hr tablet 00 daily. [facility] metoprolol 2020-0 Yes [id number] 50mg Take 1 Un nneka succinate 2-24 tablet by ity o f XL 50 mg 24 00:00: mouth [place] hr tablet 00 daily. [facility] metoprolol 2020-0 Yes [id number] 50mg Take 1 Un nneka succinate 2-24 tablet by ity o f XL 50 mg 24 00:00: mouth [place] hr tablet 00 daily. [facility] metoprolol 2020-0 Yes [id number] 50mg Take 1 Un [place] succinate 2-24 tablet by ity o f XL 50 mg 24 00:00: mouth [place] hr tablet 00 daily. [facility] metoprolol 2020-0 Yes [id number] 50mg Take 1 Un nneka succinate 2-24 tablet by ity o f XL 50 mg 24 00:00: mouth [place] hr tablet 00 daily. [facility] metoprolol 2020-0 Yes [id number] 50mg Take 1 Un nneka succinate 2-24 tablet by ity o f XL 50 mg 24 00:00: mouth [place] hr tablet 00 daily. [facility] metoprolol 2020-0 Yes [id number] 50mg Take 1 Un nneka succinate 2-24 tablet by ity o f XL 50 mg 24 00:00: mouth [place] hr tablet 00 daily. [facility] metoprolol 2020-0 Yes [id number] 50mg Take 1 Un nneka succinate 2-24 tablet by ity o f XL 50 mg 24 00:00: mouth [place] hr tablet 00 daily. [facility] metoprolol 2020-0 Yes [id number] 50mg Take 1 Un nneka succinate 2-24 tablet by ity o f XL 50 mg 24 00:00: mouth [place] hr tablet 00 daily. [facility] metoprolol 2020-0 Yes [id number] 50mg Take 1 Un nneka succinate 2-24 tablet by ity o f XL 50 mg 24 00:00: mouth [place] hr tablet 00 daily. [facility] metoprolol 2020-0 2020- No [id number] 50mg Take 1 U nivers succinate 2-24 07-09 tablet by ity of XL 50 mg 24 00:00: 00:00 [place] hr tablet 00 :00 daily. [facility] metoprolol 2019-0 2020- No [id number] 50mg Take 1 U nivers succinate 2-23 03- tablet by ity of XL 50 mg 24 00:00: 00:00 [place] hr tablet 00 :00 daily. [facility] metoprolol 2019-0 2020- No [id number] 50mg Take 1 U nivers succinate 2-23 03- tablet by ity of XL 50 mg 24 00:00: 00:00 [place] hr tablet 00 :00 daily. [facility] metoprolol 2019-0 2020- No [id number] 50mg Take 1 U nivers succinate 2-23 03- tablet by ity of XL 50 mg 24 00:00: 00:00 mouth [place] hr tablet 00 :00 daily. [facility] hydroCHLORO 2020-0 Yes [id number] 25mg Take 1 [facility] thiazide 25 1-30 tablet by ity of mg tablet 00:00: mouth [place] 00 daily. [facility] meloxicam 2020-0 Yes [id number] 15mg Take 1 U nivers 15 mg 1-30 tablet by ity of tablet 00:00: mouth [place] 00 daily. [facility] metoprolol 2020-0 Yes [id number] 25mg Take 1 Un nneka succinate 1-30 tablet by ity o f XL 25 mg 24 00:00: mouth [place] hr tablet 00 daily. [facility] pregabalin 2020-0 Yes [id number] 150mg Take 1 [facility] (LYRICA) 1-30 capsule by ity o f 150 mg 00:00: mouth 2 [place] capsule 00 (two) Medical times Branch daily. hydroCHLORO 2020-0 Yes [id number] 25mg Take 1 [facility] thiazide 25 1-30 tablet by ity of mg tablet 00:00: mouth [place] 00 daily. [facility] meloxicam 2020-0 Yes [id number] 15mg Take 1 U nivers 15 mg 1-30 tablet by ity of tablet 00:00: mouth [place] 00 daily. [facility] metoprolol 2020-0 Yes [id number] 25mg Take 1 Un nneka succinate 1-30 tablet by ity o f XL 25 mg 24 00:00: mouth [place] hr tablet 00 daily. [facility] pregabalin 2020-0 Yes [id number] 150mg Take 1 [facility] (LYRICA) 1-30 capsule by ity o f 150 mg 00:00: mouth 2 [place] capsule 00 (two) Medical times Branch daily. hydroCHLORO 2020-0 Yes [id number] 25mg Take 1 [facility] thiazide 25 1-30 tablet by ity of mg tablet 00:00: mouth [place] 00 daily. [facility] meloxicam 2020-0 Yes [id number] 15mg Take 1 U nivers 15 mg 1-30 tablet by ity of tablet 00:00: mouth [place] 00 daily. [facility] pregabalin 2020-0 Yes [id number] 150mg Take 1 [facility] (LYRICA) 1-30 capsule by ity o f 150 mg 00:00: mouth 2 [place] capsule 00 (two) Medical times Branch daily. hydroCHLORO 2020-0 Yes [id number] 25mg Take 1 [facility] thiazide 25 1-30 tablet by ity of mg tablet 00:00: mouth [place] 00 daily. [facility] meloxicam 2020-0 Yes [id number] 15mg Take 1 U nivers 15 mg 1-30 tablet by ity of tablet 00:00: mouth [place] 00 daily. [facility] pregabalin 2020-0 Yes [id number] 150mg Take 1 [facility] (LYRICA) 1-30 capsule by ity o f 150 mg 00:00: mouth 2 [place] capsule 00 (two) Medical times Branch daily. hydroCHLORO 2020-0 Yes [id number] 25mg Take 1 [facility] thiazide 25 1-30 tablet by ity of mg tablet 00:00: mouth [place] 00 daily. [facility] meloxicam 2020-0 Yes [id number] 15mg Take 1 U nivers 15 mg 1-30 tablet by ity of tablet 00:00: mouth [place] 00 daily. [facility] pregabalin 2020-0 Yes [id number] 150mg Take 1 [facility] (LYRICA) 1-30 capsule by ity o f 150 mg 00:00: mouth 2 [place] capsule 00 (two) Medical times Branch daily. hydroCHLORO 2020-0 Yes [id number] 25mg Take 1 [facility] thiazide 25 1-30 tablet by ity of mg tablet 00:00: mouth [place] 00 daily. [facility] meloxicam 2020-0 Yes [id number] 15mg Take 1 U nivers 15 mg 1-30 tablet by ity of tablet 00:00: mouth [place] 00 daily. [facility] pregabalin 2020-0 Yes [id number] 150mg Take 1 [facility] (LYRICA) 1-30 capsule by ity o f 150 mg 00:00: mouth 2 [place] capsule 00 (two) Medical times Branch daily. hydroCHLORO 2020-0 Yes [id number] 25mg Take 1 [facility] thiazide 25 1-30 tablet by ity of mg tablet 00:00: mouth [place] 00 daily. [facility] meloxicam 2020-0 Yes [id number] 15mg Take 1 U nivers 15 mg 1-30 tablet by ity of tablet 00:00: mouth [place] 00 daily. [facility] pregabalin 2020-0 Yes [id number] 150mg Take 1 [facility] (LYRICA) 1-30 capsule by ity o f 150 mg 00:00: mouth 2 [place] capsule 00 (two) Medical times Branch daily. hydroCHLORO 2020-0 Yes [id number] 25mg Take 1 [facility] thiazide 25 1-30 tablet by ity of mg tablet 00:00: mouth [place] 00 daily. [facility] meloxicam 2020-0 Yes [id number] 15mg Take 1 U nivers 15 mg 1-30 tablet by ity of tablet 00:00: mouth [place] 00 daily. [facility] pregabalin 2020-0 Yes [id number] 150mg Take 1 [facility] (LYRICA) 1-30 capsule by ity o f 150 mg 00:00: mouth 2 [place] capsule 00 (two) Medical times Branch daily. hydroCHLORO 2020-0 Yes [id number] 25mg Take 1 [facility] thiazide 25 1-30 tablet by ity of mg tablet 00:00: mouth [place] 00 daily. [facility] meloxicam 2020-0 Yes [id number] 15mg Take 1 U nivers 15 mg 1-30 tablet by ity of tablet 00:00: mouth [place] 00 daily. [facility] pregabalin 2020-0 Yes [id number] 150mg Take 1 [facility] (LYRICA) 1-30 capsule by ity o f 150 mg 00:00: mouth 2 [place] capsule 00 (two) Medical times Branch daily. hydroCHLORO 2020-0 Yes [id number] 25mg Take 1 [facility] thiazide 25 1-30 tablet by ity of mg tablet 00:00: mouth [place] 00 daily. [facility] meloxicam 2020-0 Yes [id number] 15mg Take 1 U nivers 15 mg 1-30 tablet by ity of tablet 00:00: mouth [place] 00 daily. [facility] pregabalin 2020-0 Yes [id number] 150mg Take 1 [facility] (LYRICA) 1-30 capsule by ity o f 150 mg 00:00: mouth 2 [place] capsule 00 (two) Medical times Branch daily. hydroCHLORO 2020-0 Yes [id number] 25mg Take 1 [facility] thiazide 25 1-30 tablet by ity of mg tablet 00:00: mouth [place] 00 daily. [facility] meloxicam 2020-0 Yes [id number] 15mg Take 1 U nivers 15 mg 1-30 tablet by ity of tablet 00:00: mouth [place] 00 daily. [facility] pregabalin 2020-0 Yes [id number] 150mg Take 1 [facility] (LYRICA) 1-30 capsule by ity o f 150 mg 00:00: mouth 2 [place] capsule 00 (two) Medical times Branch daily. hydroCHLORO 2020-0 Yes [id number] 25mg Take 1 [facility] thiazide 25 1-30 tablet by ity of mg tablet 00:00: mouth [place] 00 daily. [facility] meloxicam 2020-0 Yes [id number] 15mg Take 1 U nivers 15 mg 1-30 tablet by ity of tablet 00:00: mouth [place] 00 daily. [facility] pregabalin 2020-0 Yes [id number] 150mg Take 1 [facility] (LYRICA) 1-30 capsule by ity o f 150 mg 00:00: mouth 2 [place] capsule 00 (two) Medical times Branch daily. meloxicam 2020-0 Yes [id number] 15mg Take 1 U nivers 15 mg 1-30 tablet by ity of tablet 00:00: mouth [place] 00 daily. [facility] pregabalin 2020-0 Yes [id number] 150mg Take 1 [facility] (LYRICA) 1-30 capsule by ity o f 150 mg 00:00: mouth 2 [place] capsule 00 (two) Medical times Branch daily. meloxicam 2020-0 Yes [id number] 15mg Take 1 U nivers 15 mg 1-30 tablet by ity of tablet 00:00: mouth [place] 00 daily. [facility] pregabalin 2020-0 Yes [id number] 150mg Take 1 [facility] (LYRICA) 1-30 capsule by ity o f 150 mg 00:00: mouth 2 [place] capsule 00 (two) Medical times Branch daily. meloxicam 2020-0 Yes [id number] 15mg Take 1 U nivers 15 mg 1-30 tablet by ity of tablet 00:00: mouth [place] 00 daily. [facility] pregabalin 2020-0 Yes [id number] 150mg Take 1 [facility] (LYRICA) 1-30 capsule by ity o f 150 mg 00:00: mouth 2 [place] capsule 00 (two) Medical times Branch daily. meloxicam 2020-0 Yes [id number] 15mg Take 1 U nivers 15 mg 1-30 tablet by ity of tablet 00:00: mouth [place] 00 daily. [facility] pregabalin 2020-0 Yes [id number] 150mg Take 1 [facility] (LYRICA) 1-30 capsule by ity o f 150 mg 00:00: mouth 2 [place] capsule 00 (two) Medical times Branch daily. meloxicam 2020-0 Yes [id number] 15mg Take 1 U nivers 15 mg 1-30 tablet by ity of tablet 00:00: mouth [place] 00 daily. Medical [facility] pregabalin 2020-0 Yes [id number] 150mg Take 1 [facility] (LYRICA) 1-30 capsule by ity o f 150 mg 00:00: mouth 2 [place] capsule 00 (two) Medical times Branch daily. meloxicam 2020-0 Yes [id number] 15mg Take 1 U nivers 15 mg 1-30 tablet by ity of tablet 00:00: mouth [place] 00 daily. Medical [facility] pregabalin 2020-0 Yes [id number] 150mg Take 1 [facility] (LYRICA) 1-30 capsule by ity o f 150 mg 00:00: mouth 2 [place] capsule 00 (two) Medical times Branch daily. meloxicam 2020-0 Yes [id number] 15mg Take 1 U nivers 15 mg 1-30 tablet by ity of tablet 00:00: mouth [place] 00 daily. Medical [facility] pregabalin 2020-0 Yes [id number] 150mg Take 1 [facility] (LYRICA) 1-30 capsule by ity o f 150 mg 00:00: mouth 2 [place] capsule 00 (two) Medical times Branch daily. meloxicam 2020-0 Yes [id number] 15mg Take 1 U nivers 15 mg 1-30 tablet by ity of tablet 00:00: mouth [place] 00 daily. Medical [facility] pregabalin 2020-0 Yes [id number] 150mg Take 1 [facility] (LYRICA) 1-30 capsule by ity o f 150 mg 00:00: mouth 2 [place] capsule 00 (two) Medical times Branch daily. meloxicam 2020-0 Yes [id number] 15mg Take 1 U nivers 15 mg 1-30 tablet by ity of tablet 00:00: mouth [place] 00 daily. Medical [facility] pregabalin 2020-0 Yes [id number] 150mg Take 1 [facility] (LYRICA) 1-30 capsule by ity o f 150 mg 00:00: mouth 2 [place] capsule 00 (two) Medical times Branch daily. meloxicam 2020-0 Yes [id number] 15mg Take 1 U nivers 15 mg 1-30 tablet by ity of tablet 00:00: mouth [place] 00 daily. Medical [facility] pregabalin 2020-0 Yes [id number] 150mg Take 1 [facility] (LYRICA) 1-30 capsule by ity o f 150 mg 00:00: mouth 2 [place] capsule 00 (two) Medical times Branch daily. meloxicam 2020-0 Yes [id number] 15mg Take 1 U nivers 15 mg 1-30 tablet by ity of tablet 00:00: mouth [place] 00 daily. Medical [facility] pregabalin 2020-0 Yes [id number] 150mg Take 1 [facility] (LYRICA) 1-30 capsule by ity o f 150 mg 00:00: mouth 2 [place] capsule 00 (two) Medical times Branch daily. meloxicam 2020-0 Yes [id number] 15mg Take 1 U nivers 15 mg 1-30 tablet by ity of tablet 00:00: mouth [place] 00 daily. Medical [facility] pregabalin 2020-0 Yes [id number] 150mg Take 1 [facility] (LYRICA) 1-30 capsule by ity o f 150 mg 00:00: mouth 2 [place] capsule 00 (two) Medical times Branch daily. meloxicam 2020-0 Yes [id number] 15mg Take 1 U nivers 15 mg 1-30 tablet by ity of tablet 00:00: mouth [place] 00 daily. [facility] pregabalin 2020-0 Yes [id number] 150mg Take 1 [facility] (LYRICA) 1-30 capsule by ity o f 150 mg 00:00: mouth 2 [place] capsule 00 (two) Medical times Branch daily. meloxicam 2020-0 Yes [id number] 15mg Take 1 U nivers 15 mg 1-30 tablet by ity of tablet 00:00: mouth [place] 00 daily. [facility] pregabalin 2020-0 Yes [id number] 150mg Take 1 [facility] (LYRICA) 1-30 capsule by ity o f 150 mg 00:00: mouth 2 [place] capsule 00 (two) Medical times Branch daily. meloxicam 2020-0 Yes [id number] 15mg Take 1 U nivers 15 mg 1-30 tablet by ity of tablet 00:00: mouth [place] 00 daily. [facility] pregabalin 2020-0 Yes [id number] 150mg Take 1 [facility] (LYRICA) 1-30 capsule by ity o f 150 mg 00:00: mouth 2 [place] capsule 00 (two) Medical times Branch daily. meloxicam 2020-0 Yes [id number] 15mg Take 1 U nivers 15 mg 1-30 tablet by ity of tablet 00:00: mouth [place] 00 daily. [facility] pregabalin 2020-0 Yes [id number] 150mg Take 1 [facility] (LYRICA) 1-30 capsule by ity o f 150 mg 00:00: mouth 2 [place] capsule 00 (two) Medical times Branch daily. meloxicam 2020-0 Yes [id number] 15mg Take 1 U nivers 15 mg 1-30 tablet by ity of tablet 00:00: mouth [place] 00 daily. [facility] pregabalin 2020-0 Yes [id number] 150mg Take 1 [facility] (LYRICA) 1-30 capsule by ity o f 150 mg 00:00: mouth 2 [place] capsule 00 (two) Medical times Branch daily. meloxicam 2020-0 Yes [id number] 15mg Take 1 U nivers 15 mg 1-30 tablet by ity of tablet 00:00: mouth [place] 00 daily. Medical Branch meloxicam 2020-0 Yes [id number] 15mg Take 1 U nivers 15 mg 1-30 tablet by ity of tablet 00:00: mouth [place] 00 daily. Medical Branch meloxicam 2020-0 Yes [id number] 15mg Take 1 U nivers 15 mg 1-30 tablet by ity of tablet 00:00: mouth [place] 00 daily. [facility] Branch meloxicam 2020-0 Yes [id number] 15mg Take 1 U nivers 15 mg 1-30 tablet by ity of tablet 00:00: mouth [place] 00 daily. [facility] Branch meloxicam 2020-0 Yes [id number] 15mg Take 1 U nivers 15 mg 1-30 tablet by ity of tablet 00:00: mouth [place] 00 daily. Medical Branch meloxicam 2019-0 Yes [id number] 15mg Take 1 U nivers 15 mg 1-30 tablet by ity of tablet 00:00: mouth [place] 00 daily. Medical Branch meloxicam 2019-0 Yes [id number] 15mg Take 1 U nivers 15 mg 1-30 tablet by ity of tablet 00:00: mouth [place] 00 daily. Medical Branch meloxicam 2019-0 Yes [id number] 15mg Take 1 U nivers 15 mg 1-30 tablet by ity of tablet 00:00: mouth [place] 00 daily. Medical Branch pregabalin 2019-0 2020- No [id number] 150mg Take 1 [facility] (LYRICA) 1-30 12-21 capsule by ity of 150 mg 00:00: 00:00 mouth 2 [place] capsule 00 :00 (two) Medical times Branch daily. hydroCHLORO 2019-0 2020- No [id number] 25mg Take 1 [facility] thiazide 25 -30 07-09 tablet by it y of mg tablet 00:00: 00:00 mouth [place] 00 :00 daily. Medical Branch hydroCHLORO 2019-0 2020- No [id number] 25mg Take 1 [facility] thiazide 25 -30 07-09 tablet by it y of mg tablet 00:00: 00:00 mouth [place] 00 :00 daily. Medical Branch hydroCHLORO 2019-0 2020- No [id number] 25mg Take 1 [facility] thiazide 25 1-30 07-09 tablet by it y of mg tablet 00:00: 00:00 mouth [place] 00 :00 daily. Medical Branch hydroCHLORO 2019-0 2020- No [id number] 25mg Take 1 [facility] thiazide 25 -30 07-09 tablet by it y of mg tablet 00:00: 00:00 mouth [place] 00 :00 daily. Medical Branch metoprolol 2019-0 2020- No [id number] 25mg Take 1 U nivers succinate 1-30 02-24 tablet by ity of XL 25 mg 24 00:00: 00:00 [place] hr tablet 00 :00 daily. [facility] metoprolol 2019-0 2020- No [id number] 25mg Take 1 U nivers succinate 1-30 02-24 tablet by ity of XL 25 mg 24 00:00: 00:00 mouth [place] hr tablet 00 :00 daily. [facility] metoprolol 2020-0 2020- No [id number] 25mg Take 1 U nivers succinate 1-30 02-24 tablet by ity of XL 25 mg 24 00:00: 00:00 mouth [place] hr tablet 00 :00 daily. Medical Branch aripiprazol 2018-08 Yes 5mg Take 5 mg U nivers e (ABILIFY 2-17 by mouth 2 ity of ORAL) 15:02: (two) [place] 33 times Medical daily. Branch aripiprazol 2018-08 Yes 5mg Take 5 mg U nivers e (ABILIFY 2-17 by mouth 2 ity of ORAL) 15:02: (two) [place] 33 times Medical daily. Branch aripiprazol 2018-08 Yes 5mg Take 5 mg U nivers e (ABILIFY 2-17 by mouth 2 ity of ORAL) 15:02: (two) [place] 33 times Medical daily. Branch aripiprazol 2018-08 Yes 5mg Take 5 mg U nivers e (ABILIFY 2-17 by mouth 2 ity of ORAL) 15:02: (two) [place] 33 times Medical daily. Branch VITAMIN B 2018-08 Yes Take by Unive rs COMPLEX 0-31 mouth. ity of ORAL 17:11: [place] [address] Medical Branch traZODONE 2018-08 Yes 100mg Take 100 Uni vers 100 mg 0-31 mg by ity of tablet 17:11: mouth at [place] [address] bedtime. Medical Branch VITAMIN B 2018-08 Yes Take by Unive rs COMPLEX 0-31 mouth. ity of ORAL 17:11: [place] [address] Medical Branch traZODONE 2018-08 Yes 100mg Take 100 Uni vers 100 mg 0-31 mg by ity of tablet 17:11: mouth at [place] [address] bedtime. Medical Branch VITAMIN B 2018-08 Yes Take by Unive rs COMPLEX 0-31 mouth. ity of ORAL 17:11: [place] [address] Medical Branch traZODONE 2018-08 Yes 100mg Take 100 Uni vers 100 mg 0-31 mg by ity of tablet 17:11: mouth at [place] [address] bedtime. Medical Branch VITAMIN B 2018-08 Yes Take by Unive rs COMPLEX 0-31 mouth. ity of ORAL 17:11: [place] [address] Medical Branch traZODONE 2018-08 Yes 100mg Take 100 Uni vers 100 mg 0-31 mg by ity of tablet 17:11: mouth at [place] 25 bedtime. Medical Branch traZODONE 0 Yes 100mg Take 100 Uni vers 100 mg 8-29 mg by ity of tablet 19:24: mouth at [place] 39 bedtime. Medical Branch traZODONE 0 Yes 100mg Take 100 Uni vers 100 mg 8-29 mg by ity of tablet 19:24: mouth at [place] 39 bedtime. Medical Branch traZODONE 0 Yes 100mg Take 100 Uni vers 100 mg 8-29 mg by ity of tablet 19:24: mouth at [place] 39 bedtime. Medical Branch traZODONE Yes 100mg Take 100 Uni vers 100 mg 8-29 mg by ity of tablet 19:24: mouth at [place] 39 bedtime. Medical Branch traZODONE Yes 100mg Take 100 Uni vers 100 mg 8-29 mg by ity of tablet 19:24: mouth at [place] [address] bedtime. Medical Branch traZODONE Yes 100mg Take 100 Uni vers 100 mg 8-29 mg by ity of tablet 19:24: mouth at [place] [address] bedtime. Medical Branch benztropine Yes 1mg Take [...] 8-29 by mouth ity of 14:39: daily. 21 Medical Branch ARIPiprazol Yes 10mg Take [...] [place] 21 times Medical daily. Branch DULoxetine 0 Yes Take 3 Unive rs 30 mg [...] 8-29 by mouth ity of 14:39: daily. [place] Medical Branch ARIPiprazol 0 Yes 10mg Take [...] [place] 21 times Medical daily. Branch DULoxetine 0 Yes Take 3 Unive rs 30 mg [...] 21 times Medical daily. Branch metoprolol Yes [id number] 25mg Take 1 Un nneka succinate 8-29 tablet by ity o f XL 25 mg 24 00:00: mouth [place] hr tablet 00 daily. Medical Branch hydroCHLORO 2018- Yes [id number] 25mg Take 1 [facility] thiazide 25 8-29 tablet by ity of mg tablet 00:00: mouth [place] 00 daily. Medical Branch meloxicam 2018- Yes [id number] 15mg Take 1 U nivers 15 mg 8-29 tablet by ity of tablet 00:00: mouth [place] 00 daily. Medical Branch metoprolol Yes [id number] 25mg Take 1 Un nneka succinate 8-29 tablet by ity o f XL 25 mg 24 00:00: mouth [place] hr tablet 00 daily. Medical Branch hydroCHLORO Yes [id number] 25mg Take 1 [facility] thiazide 25 8-29 tablet by ity of mg tablet 00:00: mouth [place] 00 daily. Medical Branch meloxicam 20190 Yes [id number] 15mg Take 1 U nivers 15 mg 8-29 tablet by ity of tablet 00:00: mouth [place] 00 daily. Medical Branch metoprolol 2019-0 Yes [id number] 25mg Take 1 Un nneka succinate 8-29 tablet by ity o f XL 25 mg 24 00:00: mouth [place] hr tablet 00 daily. Medical Branch hydroCHLORO 0 Yes [id number] 25mg Take 1 [facility] thiazide 25 8-29 tablet by ity of mg tablet 00:00: mouth [place] 00 daily. Medical Branch meloxicam Yes [id number] 15mg Take 1 U nivers 15 mg 8-29 tablet by ity of tablet 00:00: mouth [place] 00 daily. Medical Branch metoprolol Yes [id number] 25mg Take 1 Un nneka succinate 8-29 tablet by ity o f XL 25 mg 24 00:00: mouth [place] hr tablet 00 daily. Medical Branch hydroCHLORO Yes [id number] 25mg Take 1 [facility] thiazide 25 8-29 tablet by ity of mg tablet 00:00: mouth [place] 00 daily. Medical Branch meloxicam Yes [id number] 15mg Take 1 U nivers 15 mg 8-29 tablet by ity of tablet 00:00: mouth [place] 00 daily. Medical Branch metoprolol 0 Yes [id number] 25mg Take 1 Un nneka succinate 8-29 tablet by ity o f XL 25 mg 24 00:00: mouth [place] hr tablet 00 daily. Medical Branch hydroCHLORO 0 Yes [id number] 25mg Take 1 [facility] thiazide 25 8-29 tablet by ity of mg tablet 00:00: mouth [place] 00 daily. Medical Branch meloxicam 0 Yes [id number] 15mg Take 1 U nivers 15 mg 8-29 tablet by ity of tablet 00:00: mouth [place] 00 daily. Medical Branch metoprolol 20190 Yes [id number] 25mg Take 1 Un nneka succinate 8-29 tablet by ity o f XL 25 mg 24 00:00: mouth [place] hr tablet 00 daily. Medical Branch hydroCHLORO 0 Yes [id number] 25mg Take 1 [facility] thiazide 25 8-29 tablet by ity of mg tablet 00:00: mouth [place] 00 daily. [facility] Branch meloxicam Yes [id number] 15mg Take 1 U nivers 15 mg 8-29 tablet by ity of tablet 00:00: mouth [place] 00 daily. [facility] Branch metoprolol Yes [id number] 25mg Take 1 Un nneka succinate 8-29 tablet by ity o f XL 25 mg 24 00:00: mouth [place] hr tablet 00 daily. [facility] Branch hydroCHLORO Yes [id number] 25mg Take 1 [facility] thiazide 25 8-29 tablet by ity of mg tablet 00:00: mouth [place] 00 daily. [facility] meloxicam Yes [id number] 15mg Take 1 U nivers 15 mg 8-29 tablet by ity of tablet 00:00: mouth [place] 00 daily. [facility] metoprolol 2020- No [id number] 25mg Take 1 U nivers succinate 8-29 -30 tablet by ity of XL 25 mg 24 00:00: 00:00 mouth [place] hr tablet 00 :00 daily. [facility] hydroCHLORO 2020- No [id number] 25mg Take 1 [facility] thiazide 25 8-28 09-30 tablet by it y of mg tablet 00:00: 00:00 mouth [place] 00 :00 daily. [facility] meloxicam 2020- No [id number] 15mg Take 1 [facility] 15 mg 8-28 09-30 tablet by ity of tablet 00:00: 00:00 mouth [place] 00 :00 daily. [facility] metoprolol 2020- No [id number] 25mg Take 1 U nivers succinate 8-29 -30 tablet by ity of XL 25 mg 24 00:00: 00:00 mouth [place] hr tablet 00 :00 daily. [facility] Branch hydroCHLORO 2020- No [id number] 25mg Take 1 [facility] thiazide 25 8-28 09-30 tablet by it y of mg tablet 00:00: 00:00 mouth [place] 00 :00 daily. [facility] meloxicam 2020- No [id number] 15mg Take 1 [facility] 15 mg 8-28 09-30 tablet by ity of tablet 00:00: 00:00 mouth [place] 00 :00 daily. Medical Branch Dose No Unknown 7-30 00:00: 00 Dose 2019-0 No Unknown 7-30 00:00: 00 Dose 2019-0 No Unknown 7-30 00:00: 00 Dose 2019-0 No Unknown 7-30 00:00: 00 Dose 2019-0 No Unknown 7-30 00:00: 00 Dose 2019-0 No Unknown 7-30 00:00: 00 METOPROLOL 2019- No [id number] TAKE 1 U nivers SUCCINATE 7-06 07-29 TABLET BY ity of XL 25 mg 24 00:00: 00:00 MOUTH [place] hr tablet 00 :00 EVERY DAY Medic al Branch METOPROLOL 2019- No [id number] TAKE 1 U nivers SUCCINATE 7-10 -29 TABLET BY ity of XL 25 mg 24 00:00: 00:00 MOUTH [place] hr tablet 00 :00 EVERY DAY Medic al Branch hydroCHLORO 2019- No [id number] 25mg Take 1 [facility] thiazide 25 -30 -29 tablet by it y of mg tablet 00:00: 00:00 mouth [place] 00 :00 daily. Medical Branch meloxicam 2019- No [id number] 7.5mg Take 1 [facility] (MOBIC) 7.5 -30 -29 tablet by it y of mg tablet 00:00: 00:00 mouth [place] 00 :00 daily. Medical Branch hydroCHLORO 2019- No [id number] 25mg Take 1 [facility] thiazide 25 -30 -29 tablet by it y of mg tablet 00:00: 00:00 mouth [place] 00 :00 daily. Medical Branch meloxicam 2019- No [id number] 7.5mg Take 1 [facility] (MOBIC) 7.5 -30 -29 tablet by it y of mg tablet 00:00: 00:00 mouth [place] 00 :00 daily. Medical Branch DULOXETINE Yes 60mg Take 60 mg U nivers HCL 4-23 by mouth 3 ity of (CYMBALTA 20:00: (three) [place] ORAL) 25 times Medical daily. Branch OLANZapine Yes 20mg Take 20 mg U nivers 20 mg 4-23 by mouth ity of tablet 20:00: at [place] 25 bedtime. Medical Branch aripiprazol Yes 5mg [...] by mouth ity of tablet 20:00: at [place] 25 bedtime. Medical Branch DULOXETINE 2019-0 Yes 60mg Take 60 mg U nivers HCL 4-23 by mouth 3 ity of (CYMBALTA 20:00: (three) [place] ORAL) 25 times Medical daily. Branch OLANZapine 2019-0 Yes 20mg Take 20 mg U nivers 20 mg 4-23 by mouth ity of tablet 20:00: at [place] 25 bedtime. Medical Branch DULOXETINE 2019-0 Yes 60mg Take 60 mg U nivers HCL 4-23 by mouth 3 ity of (CYMBALTA 20:00: (three) [place] ORAL) 25 times Medical daily. Branch OLANZapine 2019-0 Yes 20mg Take 20 mg U nivers 20 mg 4-23 by mouth ity of tablet 20:00: at [place] [address] bedtime. Medical Branch DULOXETINE 2019-0 Yes 60mg Take 60 mg U nivers HCL 4-23 by mouth 3 ity of (CYMBALTA 20:00: (three) [place] ORAL) 25 times Medical daily. Branch OLANZapine 2019-0 Yes 20mg Take 20 mg U nivers 20 mg 4-23 by mouth ity of tablet 20:00: at [place] [address] bedtime. Medical Branch DULOXETINE 2019-0 Yes 60mg Take 60 mg U nivers HCL 4-23 by mouth 3 ity of (CYMBALTA 20:00: (three) [place] ORAL) 25 times Medical daily. Branch OLANZapine 2019-0 Yes 20mg Take 20 mg U nivers 20 mg 4-23 by mouth ity of tablet 20:00: at [place] 25 bedtime. Medical Branch aripiprazol 2019-0 Yes [...] by mouth ity of tablet 20:00: at [place] 25 bedtime. Medical Branch aripiprazol 2019-0 Yes [...] by mouth ity of tablet 20:00: at [place] 25 bedtime. Medical Branch aripiprazol 2019-0 Yes [...] by mouth ity of tablet 20:00: at [place] 25 bedtime. Medical Branch aripiprazol 2019-0 Yes [...] by mouth ity of tablet 20:00: at [place] 25 bedtime. Medical Branch aripiprazol 2019-0 Yes 5mg Take 5 mg U nivers e (ABILIFY 4-23 by mouth 2 ity of ORAL) 20:00: (two) [place] 25 times Medical daily. Branch VITAMIN B 2019-0 Yes Take by Unive rs COMPLEX 3-28 mouth. ity of ORAL 16:11: [address] VITAMIN B 2019 Yes Take by Unive rs COMPLEX 3-28 mouth. ity of ORAL 16:11: [address] VITAMIN B Yes Take by Unive rs COMPLEX 3-28 mouth. ity of ORAL 16:11: [address] VITAMIN B Yes Take by Unive rs COMPLEX 3-28 mouth. ity of ORAL 16:11: [address] VITAMIN B Yes Take by Unive rs COMPLEX 3-28 mouth. ity of ORAL 16:11: [address] VITAMIN B Yes Take by Unive rs COMPLEX 3-28 mouth. ity of ORAL 16:11: [address] amlodipine 2019-0 No 1mg 5 mg tablet 2-19 00:00: 00 amlodipine 2019-0 No 1mg 5 mg tablet 2-19 00:00: 00 amlodipine 2019-0 No 1mg 5 mg tablet 2-19 00:00: [...] mg 9-20 tablet 00:00: 00 Zyprexa 15 2017-0 No 1mg mg tablet 9-19 00:00: 00 Dose 2018-0 No Unknown 05-19 00:00: 00 Dose 2018-0 No Unknown 05-19 00:00: 00 Dose 2018-0 No Unknown 05-19 00:00: 00 Zyprexa 15 2018-0 No 1mg mg tablet 05-19 00:00: 00 Dose 2018-0 No Unknown 05-19 00:00: 00 Dose 2018-0 No Unknown 05-19 00:00: 00 Dose 2018-0 No Unknown 05-19 00:00: 00 Zyprexa 15 2018-0 No 1mg [...] 8-15 tablet 00:00: 00 cyclobenzap 2018-0 Yes [id number] Bid prn Univers rine 10 mg 8-02 ity of tablet 00:00: [address] Branch cyclobenzap 2018-0 Yes [id number] Bid prn Univers rine 10 mg 8-02 ity of tablet 00:00: [address] Branch cyclobenzap 2018-0 Yes [id number] Bid prn Univers rine 10 mg 8-02 ity of tablet 00:00: [address] cyclobenzap 2018-0 Yes [id number] Bid prn Univers rine 10 mg 8-02 ity of tablet 00:00: [address] Branch cyclobenzap 2018-0 Yes [id number] Bid prn Univers rine 10 mg 8-02 ity of tablet 00:00: [address] Branch cyclobenzap 2018-0 Yes [id number] Bid prn Univers rine 10 mg 8-02 ity of tablet 00:00: [address] cyclobenzap 2018-0 Yes [id number] Bid prn Univers rine 10 mg 8-02 ity of tablet 00:00: [place] 00 Medical Branch cyclobenzap 2018-0 Yes [id number] Bid prn Univers rine 10 mg 8-02 ity of tablet 00:00: [place] 00 Medical Branch cyclobenzap 2018-0 Yes [id number] Bid prn Univers rine 10 mg 8- ity of tablet 00:00: [place] 00 Medical Branch cyclobenzap 2018-0 Yes [id number] Bid prn Univers rine 10 mg 8- ity of tablet 00:00: [place] 00 Medical Branch cyclobenzap 2018-0 2020- No [id number] Bid prn Univers rine 10 mg 8-10 02-24 ity of tablet 00:00: 00:00 [place] 00 :00 Medical Branch cyclobenzap 2018-0 2020- No [id number] Bid prn Univers rine 10 mg 8-10-24 ity of tablet 00:00: 00:00 [place] 00 :00 Medical Branch cyclobenzap 2018-0 2020- No [id number] Bid prn Univers rine 10 mg 04-01 ity of tablet 00:00: 00:00 [place] 00 :00 Medical Branch amlodipine 2018-0 No [...] 40 mg 5-19 tablet 00:00: 00 trazodone 2015-0 No 1mg 50 mg 5-19 tablet 00:00: [...] 300 mg 5-19 capsule 00:00: 00 DULoxetine 2016-0 Yes [id number] Emanuel sey HCl 30 MG 3-16 Seybold oral 00:00: - Capsule 00 Externa Delayed l Release Sprinkle hydrOXYzine 2016-0 Yes [id number] Ke lsey HCl 25 MG 3-16 [place] oral Tablet 00:00: - 00 Externa l DULoxetine 2016-0 Yes Jelena HCl 30 MG 3-16 [place] oral 00:00: - Capsule 00 Externa Delayed l Release Sprinkle hydrOXYzine 2016-0 Yes Jelena HCl 25 MG 3-16 [place] oral Tablet 00:00: - 00 Externa l DULoxetine 2016-0 Yes [id number] Emanuel sey HCl 30 MG 3-16 [place] oral 00:00: - Capsule 00 Externa Delayed l Release Sprinkle hydrOXYzine 2016-0 Yes [id number] Ke l[place] HCl 25 MG 3-16 Seybold [...] [place] Protein, Pf Covid-19 Vaccine 2021-10-19 Completed Jeelna newman Moderna (Spikevax), 00:00:00 - Ext ernal [...] Vaccine 00:00:00 Pneumococcal Vaccine, 2019-04-29 Completed Emanuel woodard Seybold Polysaccharide 00:00:00 - External Tdap- (Boostrix, 2019-04-29 Completed Jelena shahbold Adacel) 00:00:00 - External Pneumococcal Vaccine, 2019-04-29 Completed Emanuel y Seybold Polysaccharide 00:00:00 - External Tdap- (Boostrix, 2019-04-29 Completed Jelena Umaña eybold Adacel) 00:00:00 - External Pneumococcal Vaccine, 2019-04-29 Completed Emanuel sey Seybold Polysaccharide 00:00:00 - External Tdap- (Boostrix, 2019-04-29 Completed Jelena Umaña eybold Adacel) 00:00:00 - External DTaP Unspecified 2009-04-17 Completed Jelena S eybold 00:00:00 - External Hepatitis A 2009-04-17 Completed Jelena Malcolmybol d 00:00:00 - External HPV 4 (Human 2009-04-17 Completed Jelena Seybo ld Papillomavirus) 00:00:00 - Externa l Pneumococcal Vaccine, 2009-04-17 Completed Emanuel y Seybold Conjugate 7 00:00:00 - External DTaP Unspecified 2009-04-17 Completed Jelena Umaña eybold 00:00:00 - External Hepatitis A 2009-04-17 Completed Jelena Eatonol d 00:00:00 - External HPV 4 (Human [...] - External HPV 4 (Human 2008-04-14 Completed Jelena Seybo ld Papillomavirus) 00:00:00 - Externa l HPV 4 (Human 2008-04-14 Completed Jelena Seybo ld Papillomavirus) 00:00:00 - Externa l HPV 4 (Human 2008-04-14 Completed Jelena Seybo ld Papillomavirus) 00:00:00 - Externa l Hepatitis A 2008-02-18 Completed Jelena Seybol d 00:00:00 - External HPV 4 (Human 2008-02-18 Completed Jelena Eatono ld Papillomavirus) 00:00:00 - Externa l Meningococcal 2008-02-18 Completed Jelena Malcolmyb old Mcv4,unspecified 00:00:00 - Marketing/Sales Person 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 Hepatitis A 2008-02-18 Completed Jelena Eatonol d 00:00:00 - External HPV 4 (Human 2008-02-18 Completed Jelena Eatono ld Papillomavirus) 00:00:00 - Externa l Meningococcal 2008-02-18 Completed Jelena Malcolmyb old Mcv4,unspecified 00:00:00 - Marketing/Sales Person 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 Hepatitis A 2008-02-18 Completed Jelena Eatonol d 00:00:00 - External HPV 4 (Human 2008-02-18 Completed Jelena Eatono ld Papillomavirus) 00:00:00 - Externa l Meningococcal 2008-02-18 Completed Jelena Eaton old Mcv4,unspecified 00:00:00 - Marketing/Sales Person 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 Td (adult), 2 Lf 2006-05-25 Completed Jelena shahbold tetanus toxoid, 00:00:00 - Externa l preservative free, adsorbed Td (adult), 2 Lf 2006-05-25 Completed Jelena Umaña eybold tetanus toxoid, 00:00:00 - Externa l preservative free, adsorbed Td (adult), 2 Lf 2006-05-25 Completed Jelena Umaña eybold tetanus toxoid, 00:00:00 - Externa l preservative free, adsorbed Varicella Vaccine 2002-04-21 Completed Jelena Ibrahim 00:00:00 - External Varicella Vaccine 2002-04-21 Completed Jelena Ibrahim 00:00:00 - External Varicella Vaccine 2002-04-21 Completed Jelena Ibrahim 00:00:00 - External HIB- Haemophilus 1997-05-31 Completed Jleena shahboconstance Influenzae Type B 00:00:00 - Exter [...] Malcolm ybold Vaccine 00:00:00 - External DTP- 1997-04-05 Completed Jelena Ibrahim Diphtheria,Tetanus,Pe 00:00:00 - E xternal rtussis OPV- Oral Polio 1997-04-05 Completed Jelena allenold Vaccine 00:00:00 - External DTP- 1996-08-05 Completed [...] nal MMR- Measles, Mumps, 1996-05-30 Completed Ashlie shah Seybold Rubella 00:00:00 - External MMR- Measles, Mumps, 1996-05-30 Completed Ashlie shah Seybold Rubella 00:00:00 - External MMR- Measles, Mumps, 1996-05-30 Completed Ashlie shah Seybold Rubella 00:00:00 - External HIB- Haemophilus 1995-09-25 Completed Jelena Umaña eybold Influenzae Type B 00:00:00 - Exter nal HIB- Haemophilus 1995-09-25 Completed Jelena Umaña eybold Influenzae Type B 00:00:00 - Exter nal HIB- Haemophilus 1995-09-25 Completed Jelena Umaña eybold Influenzae Type B 00:00:00 - Exter nal OPV- Oral Polio 1994-08-05 Completed Jelena Malcolm ybold Vaccine 00:00:00 - External OPV- Oral Polio 1994-08-05 Completed Jelena Malcolm ybold Vaccine 00:00:00 - External OPV- Oral Polio 1994-08-05 Completed Jelena Malcolm ybold Vaccine 00:00:00 - External MMR- Measles, Mumps, 1994-05-30 Completed Ashlie ey Seybold Rubella 00:00:00 - External MMR- Measles, Mumps, 1994-05-30 Completed Ashlie ey Seybold Rubella 00:00:00 - External MMR- Measles, Mumps, 1994-05-30 Completed Ashlie ey Seybold Rubella 00:00:00 - External Hepatitis B, 1993 Completed Jelena Eatono ld Unspecified 00:00:00 - External Hepatitis B, [...] xternal rtussis Hepatitis B, 1993 Completed Jelena nolasco Unspecified 00:00:00 - External OPV- Oral Polio 1993 Completed Jelena Malcolm ybold Vaccine 00:00:00 - External DTP- 1993 Completed Jelena Ibrahim Diphtheria,Tetanus,Pe 00:00:00 - E xternal rtussis Hepatitis B, 1993 Completed Jelena nolasco Unspecified 00:00:00 - External OPV- Oral Polio 1993 Completed Jelena Malcolm ybold Vaccine 00:00:00 - External DTP- 1993 Completed Jelena Ibrahim Diphtheria,Tetanus,Pe 00:00:00 - E xternal rtussis Hepatitis B, 1993 Completed Jelena nolasco Unspecified 00:00:00 - External OPV- Oral Polio 1993 Completed Jelena Malcolm ybold Vaccine 00:00:00 - External HIB- Haemophilus 1993 Completed Jelena shahbold Influenzae Type B 00:00:00 - Exter nal HIB- Haemophilus 1993 Completed Jelena Umaña eybold Influenzae Type B 00:00:00 - Exter nal HIB- Haemophilus 1993 Completed Jelena shahbold Influenzae Type B 00:00:00 - Exter nal Hepatitis B, 1993 Completed Jelena nolasco Unspecified 00:00:00 - External Hepatitis B, 1993 Completed Jelena nolasco Unspecified 00:00:00 - External Hepatitis B, 1993 Completed Jelena nolasco Unspecified 00:00:00 - External Vital Signs Vital Name Observation Time Observation Value Comments Source Systolic blood 2022-10-10 14:33:00 152 mm[Hg] Jelena Ibrahim - pressure External Diastolic blood 2022-10-10 14:33:00 100 mm[Hg] Beth Ibrahim - pressure External Heart rate 2022-10-10 14:33:00 80 /min Jelena newman - External Body temperature 2022-10-10 14:33:00 36.17 Mera Ashlie ey Seybold - External Respiratory rate 2022-10-10 14:33:00 15 /min Ashlie ey Seybold - External Body height 2022-10-10 14:33:00 160 cm Jelena Umaña eybold - External Body weight 2022-10-10 14:33:00 128.368 kg Jelena Umaña eybold - External BMI 2022-10-10 14:33:00 50.13 kg/m2 Jelena S eybold - External Systolic blood 2022-09-24 16:23:00 142 mm[Hg] Jelena Seybold - pressure External Diastolic blood 2022-09-24 16:23:00 94 mm[Hg] Emanuelse y Seybold - pressure External Heart rate 2022-09-24 16:23:00 106 /min Jelena Umaña eybold - External Body temperature 2022-09-24 16:23:00 36.67 Mera Ashlie ey Seybold - External Respiratory rate 2022-09-24 16:23:00 16 /min Ashlie shah Seybold - External Body height 2022-09-24 16:23:00 160 cm Jelena Umaña eybold - External Body weight 2022-09-24 16:23:00 128.368 kg Jelena Umaña eybold - External BMI 2022-09-24 16:23:00 50.13 kg/m2 Jelena Umaña eybold - External Systolic blood 2022-09-09 14:45:00 142 mm[Hg] Jelnea Seybold - pressure External Diastolic blood 2022-09-09 14:45:00 86 mm[Hg] Beth y Seybold - pressure External Heart rate 2022-09-09 14:45:00 84 /min Jelena S eybold - External Body temperature 2022-09-09 14:45:00 36.78 Mera Ashlie ey Seybold - External Respiratory rate 2022-09-09 14:45:00 14 /min Ashlie shah Seybold - External Body height 2022-09-09 14:45:00 160 cm Jelena Umaña eybold - External Body weight 2022-09-09 14:45:00 128.822 kg Jelena S eybold - External BMI 2022-09-09 14:45:00 50.31 kg/m2 Jelena newman - External Oxygen saturation in 2022-09-09 14:45:00 99 /min Jelena Ibrahim - Arterial blood by External Pulse oximetry Systolic blood 2020-09-07 15:09:00 126 mm[Hg] Univer [facility] Diastolic blood 2020-09-07 15:09:00 88 mm[Hg] Unive rsity of pressure [facility] Heart rate 2020-09-07 15:09:00 76 /min [facility] Body height 2020-09-07 15:09:00 160 cm [facility] Body weight 2020-09-07 15:09:00 114.306 kg [facility] BMI 2020-09-07 15:09:00 44.64 kg/m2 [facility] Systolic blood 2020-09-07 15:09:00 126 mm[Hg] Univer sity of [facility] Diastolic blood 2020-09-07 15:09:00 88 mm[Hg] Unive rsity of pressure [facility] Heart rate 2020-09-07 15:09:00 76 /min [facility] Body height 2020-09-07 15:09:00 160 cm [facility] Body weight 2020-09-07 15:09:00 114.306 kg [facility] BMI 2020-09-07 15:09:00 44.64 kg/m2 [facility] Respiratory rate 2020-08-02 16:44:00 20 /min [facility] Body height 2020-08-02 16:44:00 160 cm [facility] Body weight 2020-08-02 16:44:00 114.352 kg [facility] BMI 2020-08-02 16:44:00 44.66 kg/m2 [facility] Systolic blood 2020-08-02 16:44:00 113 mm[Hg] Univer sity of [facility] Diastolic blood 2020-08-02 16:44:00 66 mm[Hg] Unive rsity of [facility] Heart rate 2020-08-02 16:44:00 76 /min [facility] Body temperature 2020-08-02 16:44:00 36 Mera [facility] Systolic blood 2020-05-17 16:06:00 125 mm[Hg] Univer [facility] Diastolic blood 2020-05-17 16:06:00 76 mm[Hg] Unive rsity of [facility] Heart rate 2020-05-17 16:06:00 93 /min [facility] Body temperature 2020-05-17 16:06:00 36.44 Mera [facility] Respiratory rate 2020-05-17 16:06:00 18 /min [facility] Body height 2020-05-17 16:06:00 160 cm [facility] Body weight 2020-05-17 16:06:00 105.688 kg [facility] BMI 2020-05-17 16:06:00 41.27 kg/m2 [facility] Systolic blood 2020-03-08 15:04:00 108 mm[Hg] Univer [facility] Diastolic blood 2020-03-08 15:04:00 69 mm[Hg] Unive rsity [facility] Heart rate 2020-03-08 15:04:00 74 /min [facility] Body temperature 2020-03-08 15:04:00 36.61 Mera [facility] Respiratory rate 2020-03-08 15:04:00 20 /min [facility] Body height 2020-03-08 15:04:00 160 cm [facility] Body weight 2020-03-08 15:04:00 112.583 kg [facility] BMI 2020-03-08 15:04:00 43.97 kg/m2 [facility] Systolic blood 2019-10-25 14:56:00 128 mm[Hg] Univer sity [facility] Diastolic blood 2019-10-25 14:56:00 92 mm[Hg] Unive rsity of [facility] Heart rate 2019-10-25 14:56:00 72 /min [facility] Body temperature 2019-10-25 14:56:00 36.67 Mera [facility] Body height 2019-10-25 14:56:00 160 cm [facility] Body weight 2019-10-25 14:56:00 110.904 kg [facility] BMI 2019-10-25 14:56:00 43.31 kg/m2 [facility] Oxygen saturation in 2019-10-25 14:56:00 99 /min [facility] blood by [facility] Pulse oximetry Branch Systolic blood 2019-10-24 17:13:00 120 mm[Hg] Univer sity of [facility] Diastolic blood 2019-10-24 17:13:00 81 mm[Hg] Unive rsity of [facility] Heart rate 2019-10-24 17:13:00 75 /min [facility] Respiratory rate 2019-10-24 17:13:00 19 /min [facility] Body height 2019-10-24 17:13:00 160 cm [facility] Body weight 2019-10-24 17:13:00 110.133 kg [facility] BMI 2019-10-24 17:13:00 43.01 kg/m2 [facility] Oxygen saturation in 2019-10-24 17:13:00 99 /min University of Arterial blood by [facility] nereida Pulse oximetry Branch Systolic blood 2019-09-29 16:38:00 93 mm[Hg] Univer sity of pressure [facility] Diastolic blood 2019-09-29 16:38:00 64 mm[Hg] Unive rsity of pressure [facility] Heart rate 2019-09-29 16:38:00 77 /min [facility] Body temperature 2019-09-29 16:38:00 36.5 Mera [facility] Respiratory rate 2019-09-29 16:38:00 20 /min [facility] Body height 2019-09-29 16:38:00 160 cm [facility] Body weight 2019-09-29 16:38:00 109.77 kg [facility] BMI 2019-09-29 16:38:00 42.87 kg/m2 [facility] Systolic blood 2019-04-28 14:39:00 105 mm[Hg] Univer sity of pressure [facility] Diastolic blood 2019-04-28 14:39:00 62 mm[Hg] Unive rsity of pressure [facility] Heart rate 2019-04-28 14:39:00 87 /min Universi [facility] Body temperature 2019-04-28 14:39:00 36.94 [facility]era [facility] 2019-04-28 14:39:00 18 /min [facility] Body height 2019-04-28 14:39:00 160 cm [facility] Body weight 2019-04-28 14:39:00 123.832 kg [facility] BMI 2019-04-28 14:39:00 48.36 kg/m2 [facility] BP Systolic 2022-09-10 11:46:00 168 mm[Hg] [...] Source Performed REFERRAL- 2020-09-27 06:01:00 Doctor Lucina, [facility] REQUEST/RESPONSE [facility] MR KNEE LEFT WO CONTRAST 2020-08-20 18:12:04 Alexandre Delgado [facility] [place] NOTICE OF PRIVACY 2020-08-02 06:01:00 Doctor Lucina, [facility] PRACTICES [facility] AGREEMENTS AUTHORIZATIONS 2020-08-02 06:01:00 Doctor Lucina, [facility] AND IRREVOCABLE [facility] ASSIGNMENTS (FORM 2001) VACCINATIONS - CONSENTS, 2020-05-17 05:01:00 Doctor Lucina, [facility] ELIGIBILITY, HISTORY [facility] XR KNEE 3 VW LEFT 2020-03-16 13:13:36 Alexandre Delgado [facility] [place] SCANNED LAB RESULTS 2020-03-08 05:01:00 [facility] ASSIGNMENT OF BENEFITS 2020-02-10 13:57:41 [facility] - PRESCRIPTION / 2019-09-08 06:01:00 Doctor Lucina [facility] ORDER [facility] AGREEMENTS AUTHORIZATIONS 2019-04-28 05:01:00 Doctor Lucina, [facility] AND IRREVOCABLE [facility] ASSIGNMENTS (FORM 2001) 03126 Ecg Routine Ecg 2018-06-14 00:00:00 W/least 12 Lds W/i r Plan of Care Planned Activity Planned Date Details Comments Source Goal Plan of Care Note [code = 35909-1] Goal Plan of Care Note [code = 83154-6] Goal Plan of Care Note [code = 77524-3] Goal Plan of Care Note [code = 66168-5] Goal Plan of Care Note [code = 77393-0] Goal Plan of Care Note [code = 02766-8] Goal Plan of Care Note [code = 43246-1] Goal Plan of Care Note [code = 86884-4] Goal Plan of Care Note [code = 83469-3] Goal Plan of Care Note [code = 28563-9] Goal Plan of Care Note [code = 71874-5] Goal Plan of Care Note [code = 18428-3] Goal Plan of Care Note [code = 58838-7] Goal Plan of Care Note [code = 83398-8] Goal Plan of Care Note [code = 50986-8] Goal Plan of Care Note [code = 74363-5] Goal Plan of Care Note [code = 85705-6] Goal Plan of Care Note [code = 11546-2] Goal Plan of Care Note [code = 43301-4] Goal Plan of Care Note [code = 12473-3] Goal Plan of Care Note [code = 64548-9] Goal Plan of Care Note [code = 07645-7] Goal Plan of Care Note [code = 83198-7] Goal Plan of Care Note [code = 27365-9] Goal Plan of Care Note [code = 37798-9] Goal Plan of Care Note [code = 28939-3] Goal Plan of Care Note [code = 68895-7] Goal Plan of Care Note [code = 29420-6] Goal Plan of Care Note [code = 38695-3] Goal Plan of Care Note [code = 39306-9] Goal Plan of Care Note [code = 22159-4] Goal Plan of Care Note [code = 59045-2] Goal Plan of Care Note [code = 37717-6] Goal Plan of Care Note [code = 73344-9] Goal Plan of Care Note [code = 55882-2] Goal Plan of Care Note [code = 89852-0] Goal Plan of Care Note [code = 34488-0] Goal Plan of Care Note [code = 38539-7] Goal Plan of Care Note [code = 17734-4] Goal Plan of Care Note [code = 00544-1] Goal Plan of Care Note [code = 60625-9] Goal Plan of Care Note [code = 66890-1] Goal Plan of Care Note [code = 86584-0] Goal Plan of Care Note [code = 80643-1] Goal Plan of Care Note [code = 38824-6] Goal Plan of Care Note [code = 54240-6] Goal Plan of Care Note [code = 45687-2] Goal Plan of Care Note [code = 36699-5] Goal Plan of Care Note [code = 42825-5] Goal Plan of Care Note [code = 06227-4] Goal Plan of Care Note [code = 92518-9] Goal Plan of Care Note [code = 41270-6] Goal Plan of Care Note [code = 24486-5] Goal Plan of Care Note [code = 11430-8] Goal Plan of Care Note [code = 73744-1] Goal Plan of Care Note [code = 72940-3] Goal Plan of Care Note [code = 02509-6] Goal Plan of Care Note [code = 86754-8] Goal Plan of Care Note [code = 03128-1] Goal Plan of Care Note [code = 71162-4] Goal Plan of Care Note [code = 52328-0] Goal Plan of Care Note [code = 26167-1] Goal Plan of Care Note [code = 27988-5] Goal Plan of Care Note [code = 75476-3] Goal Plan of Care Note [code = 24575-4] Goal Plan of Care Note [code = 62604-0] Goal Plan of Care Note [code = 56447-8] Goal Plan of Care Note [code = 11508-2] Goal Plan of Care Note [code = 00297-4] Goal Plan of Care Note [code = 99174-7] Goal Plan of Care Note [code = 99060-5] Goal Plan of Care Note [code = 85811-1] Goal Plan of Care Note [code = 34329-5] Goal Plan of Care Note [code = 84088-9] Goal Plan of Care Note [code = 62786-6] Goal Plan of Care Note [code = 47891-0] Goal Plan of Care Note [code = 80531-7] Goal Plan of Care Note [code = 83251-4] Goal Plan of Care Note [code = 40094-0] Goal Plan of Care Note [code = 92686-5] Goal Plan of Care Note [code = 97949-7] Goal Plan of Care Note [code = 28948-8] Goal Plan of Care Note [code = 83402-9] Goal Plan of Care Note [code = 62928-1] Goal Plan of Care Note [code = 01252-6] Goal Plan of Care Note [code = 73858-6] Goal Plan of Care Note [code = 46083-8] Goal Plan of Care Note [code = 33811-5] Goal Plan of Care Note [code = 43029-4] Goal Plan of Care Note [code = 21797-1] Goal Plan of Care Note [code = 46577-1] Goal Plan of Care Note [code = 23340-5] Goal Plan of Care Note [code = 33151-3] Goal Plan of Care Note [code = 61758-7] Goal Plan of Care Note [code = 39855-0] Goal Plan of Care Note [code = 05687-7] Goal Plan of Care Note [code = 14203-2] Goal Plan of Care Note [code = 20501-2] Goal Plan of Care Note [code = 48950-7] Goal Plan of Care Note [code = 24822-6] Goal Plan of Care Note [code = 04327-0] Goal Plan of Care Note [code = 22563-3] Goal Plan of Care Note [code = 15711-8] Goal Plan of Care Note [code = 33725-8] Goal Plan of Care Note [code = 39173-8] Goal Plan of Care Note [code = 88854-7] Goal Plan of Care Note [code = 05702-4] Goal Plan of Care Note [code = 73841-8] Goal Plan of Care Note [code = 60995-1] Encounters Start End Encounter Admission Attending Care Care Encounter Source Date/Time Date/Time Type Type Clinicians Facility Department ID 2022-10-28 2022-10-28 Outpatient JELENA VICK [id number] Jelena 09:00:00 09:00:00 DARLIN nolasco 2022-10-22 2022-10-22 Outpatient JELENA GARY [id number] Jelena 08:00:00 08:00:00 ROBYN mayorga 2022-10-13 2022-10-13 Outpatient SFA SFA [id number] Jarod 11:24:16 11:24:16 0213 F Lee 2022-10-10 2022-10-10 Outpatient LAB90 JELENA KNIGHT [id number] Jelena 09:25:00 09:25:00 Seybol d 2022-10-10 2022-10-10 Outpatient HUNDL, JELENA KNIGHT [id number] Jelena 08:30:00 08:30:00 ROBYN Seybol d 2022-10-10 2022-10-10 Outpatient HUNDL, JELENA JELENA [id number] Jelena 00:00:00 00:00:00 ROBYN Seybol d 2022-10-09 2022-10-09 Outpatient HUNDL, JELENA KNIGHT [id number] Jelena 08:30:00 08:30:00 ROBYN Seybol d 2022-10-09 2022-10-09 Outpatient HUNDL, JELENA KNIGHT [id number] Jelena 00:00:00 00:00:00 ROBYN Seybol d 2022-09-30 2022-09-30 Outpatient HUNDL, JELENA KNIGHT [id number] Jelena 00:00:00 00:00:00 ROBYN Seybol d 2022-09-26 2022-09-26 Outpatient HUNDL, JELENA KNIGHT [id number] Jelena 00:00:00 00:00:00 ROBYN Seybol d 2022-09-24 2022-09-24 Outpatient LAB90 JELENA KNIGHT [id number] Jelena 17:05:00 17:05:00 Seybol d 2022-09-24 2022-09-24 Outpatient HUNDL, JELENA KNIGHT [id number] Jelena 11:00:00 11:00:00 ROBYN Seybol d 2022-09-22 2022-09-22 Outpatient [facility] [id number] Jarod 09:21:24 09:21:24 0123 F Lee 2022-09-22 2022-09-22 Outpatient HUNDL, JELENA KNIGHT [id number] Jelena 00:00:00 00:00:00 ROBYN Seybol d 2022-09-17 2022-09-17 Outpatient HUNDL, JELENA KNIGHT [id number] Jelena 00:00:00 00:00:00 ROBYN Seybol d 2022-09-12 2022-09-12 Outpatient HUNDL, JELENA KNIGHT [id number] Jelena 00:00:00 00:00:00 ROBYN Seybol d 2022-09-11 2022-09-11 Outpatient JELENA GARY JELENA [id number] Jelena 00:00:00 00:00:00 ROBYN Malcolmybol d 2022-09-10 2022-09-10 Outpatient SFA SFA [id number] Jarod 11:36:44 11:36:44 0111 F Lee 2022-09-10 2022-09-10 Outpatient [id number] 00:00:00 00:00:00 Visit 87da-47c3 7da-47c3-b -kj16-2z1 [id number] 2022-09-09 2022-09-09 Outpatient LAB90 JELENA JELENA [id number] Jelena 09:30:00 09:30:00 Chencho mayorga 2022-09-09 2022-09-09 Outpatient JELENA GARY JELENA [id number] Jelena 08:30:00 08:30:00 ROBYN Eatonol tierra 2022-09-09 2022-09-09 Outpatient JELENA GARY JELENA [id number] Jelena 00:00:00 00:00:00 ROBYN Eatonol tierra 2022-09-04 2022-09-04 Outpatient SFA SFA [id number] Jarod 08:29:33 08:29:33 0105 F Lee 2022-09-04 2022-09-04 Outpatient [id number] 00:00:00 00:00:00 Visit 1lu7-7fv1 bd9-4ec7-b -bbc8-d95 [id number] 2022-08-28 2022-08-28 Outpatient SFA SFA [id number] Jarod 11:35:11 11:35:11 1229 F Lee 2022-08-28 2022-08-28 Outpatient [id number] [id number] 00:00:00 00:00:00 Visit 010b-47c2 10b-47c2-b -t9a5-e69 3e1-t662r7 [id number] [id number] 2022-05-24 2022-05-24 emergency [id number] 15:15:00 18:38:00 [id number] [id number]-843 36 -843c-ca8 [id number]-[id number] 5eb 2022-03-15 2022-03-15 Outpatient [facility] [id number] [place] 10:56:00 10:56:00 FLO 0716 [facility] 2020-11-29 2020-11-29 [facility] [id number] Univers 15:30:00 15:30:00 ANNEMARIE magaña [facility] 2020-10-23 2020-10-23 Telephone Alexandre Delgado 1.2.840.114 [id number] Univers 00:00:00 00:00:00 [facility] 350.1.13.10 it [place] [id number] [facility] [address] [place] 2020-10-23 2020-10-23 Telephone Alexandre Delgado 1.2.840.114 [id number] 00:00:00 00:00:00 [facility] 350.1.13.10 HEALTH 4.2.7.2.686 UNIT [id number] 2020-10-12 2020-10-12 Outpatient R [facility] [id number] Univers 09:00:00 09:00:00 SHEY arshad of [facility] 2020-09-27 2020-09-27 Orders Doctor CONNER 1.2.840.114 [id number] Univers 00:00:00 00:00:00 Only Unassigned, LESLEY 350.1.13.10 ity of [facility] 4.2.7.2.686 Marvel as [id number] [facility] 00[address] Branch 2020-09-27 2020-09-27 Orders Doctor CONNER 1.2.840.114 [id number] 00:00:00 00:00:00 Only Unassigned, LESLEY 350.1.13.10 [facility] 4.2.7.2.686 [id number] 2020-09-20 2020-09-20 [facility] 1.2.840.114 [id number] Univers 00:00:00 00:00:00 Shey [facility] 350.1.13.10 it y of Surgical 4.2.7.2.686 [place] as Specialti [id number] Me dical es [address] [facility] 2020-09-20 2020-09-20 [facility]phone [facility] 1.2.840.114 [id number] 00:00:00 00:00:00 hSey [facility] 350.1.13.10 Surgical 4.2.7.2.686 Specialti [id number] es [address] [place] 2020-09-07 2020-09-07 Office [facility] 1.2.664.245 [id number] Univers 09:03:53 09:52:26 Visit Shey [facility] 350.1.13.10 it y of Surgical 4.2.7.2.686 [place] as Specialti [id number] Ca dical es 198 [facility] 2020-09-07 2020-09-07 Office [facility] 1.2.633.115 [id number] 09:03:53 09:52:26 Visit Shey [facility] 350.1.13.10 Surgical 4.2.7.2.686 Specialti [id number] es [address] [place] 2020-09-07 2020-09-07 Outpatient [facility] [id number] Univers 09:00:00 09:00:00 SHEY arshad [facility] 2020-08-30 2020-08-30 Outpatient [facility] [id number] Univers 08:30:00 08:30:00 SHEY arshad [facility] 2020-08-20 2020-08-20 [facility] Alexandre Delgado [facility] 1.2.840.114 [id number] Univers 10:11:58 23:59:00 Encounter Health 350.1.13.10 [place] [id number] [place] [id number] Branch ([facility]) 2020-08-20 2020-08-20 Outpatient R ROSS, [facility] [id number] Univers 10:11:58 23:59:00 ity [facility] 2020-08-16 2020-08-[address] [facility] 1.2.840.114 [id number] Univers 00:00:00 00:00:00 [facility] 350.1.13.10 it y of [place] 4.2.7.2.686 Marvel as Professio [id number] [address] Office Building One 2020-08-02 2020-08-02 Office Care, Ang Primary BRAZORIA 1.2.840 .114 [id number] Univers 10:40:31 12:20:58 [facility] 350.1.13.10 [place] [id number] [address] 2020-08-02 2020-08-02 Outpatient Gracia SANDY [facility] [id number] Univers 10:30:00 10:30:00 ity [facility] 2020-08-02 2020-08-02 Orders Doctor CONNER 1.2.840.114 [id number] Univers 00:00:00 00:00:00 Only Unassigned, [place] [id number] ity of [place] [facility] 4.2.7.2.686 [place] as [phone] [address] 2020-05-31 2020-05-31 Outpatient Gracia LAMAR [facility] [id number] Univers 08:50:00 08:50:00 ILIANA itemmy [facility] 2020-05-24 2020-05-24 Outpatient Gracia DELGADO [facility] [id number] Univers 00:00:00 00:00:00 ity [facility] 2020-05-22 2020-05-22 [facility] [id number] Univers 09:50:00 09:50:00 ILIANA ity [facility] 2020-05-17 2020-05-21 Office Care, Ang Primary [place] [id number] .[id number] Univers 11:05:31 09:49:52 [facility] [id number] [place] [phone] [facility] [address] 2020-05-21 2020-05-21 Outpatient R ALEXANDRE DELGADO [facility] [id number] Univers 00:00:00 00:00:00 ity of [facility] 2020-05-17 2020-05-17 Outpatient R SANDY [facility] [id number] Univers 10:30:00 10:30:00 ity of [facility] 2020-05-17 2020-05-17 Orders Doctor PRIETO 1.2.840.114 [id number] Univers 00:00:00 00:00:00 Only Unassigned, LES[place] 350.1.13.10 ity of [place] [facility] 4.2.7.2.686 Marvel as [phone] [address] 2020-05-08 2020-05-08 [facility] [id number] Univers 08:30:00 08:30:00 ANNEMARIE magaña [facility] 2020-05-08 2020-05-08 [facility] 1.2.840.114 [id number] Univers 07:05:41 07:35:41 ne Visit Annemarie AVILES 350.1.13.10 [place] AT [phone] Ca larwencenargis BYRD 2 [facility] 2020-05-01 2020-05-01 Outpatient [facility] [id number] Univers 09:30:00 09:30:00 ANNEMARIE magaña [facility] 2020-04-24 2020-04-24 Outpatient [facility] [id number] Univers 09:30:00 09:30:00 ANNEMARIE klein f [facility] 2020-03-08 2020-03-20 Office Care, Ang Primary [place] 1.2.840 .114 [id number] Univers 10:02:59 09:15:53 Visit Alexandre Delgado [facility] 350.1.13.10 [place] [id number] [address] 2020-03-16 2020-03-16 [facility] 1.2.840.114 [id number] Univers 07:51:00 23:59:00 Encounter [place] 350.1.13.10 [place] of [place] [id number] [facility] [address] 2020-03-16 2020-03-16 Outpatient R ALEXANDRE DELGADO [facility] [id number] Univers 00:00:00 00:00:00 ity of [facility] 2020-03-13 2020-03-13 Telephone Alexandre Delgado ROSY 1.2.840.114 [id number] Univers 00:00:00 00:00:00 [facility] 350.1.13.10 [place] [id number] [address] 2020-03-08 2020-03-08 Outpatient R ALEXANDRE DELGADO [facility] [id number] Univers 10:00:00 10:00:00 ity of [facility] 2020-03-08 2020-03-08 Orders Doctor CONNER 1.2.840.114 [id number] Univers 00:00:00 00:00:00 Only Unassigned, LESLEY 350.1.13.10 ity of [place] [facility] 4.2.7.2.686 [place] as [phone] [facility] [address] 2020-02-29 2020-02-29 Telephone Bethany Delgadoteodora GALLEGOS 1.2.840.114 [id number] Univers 00:00:00 00:00:00 [facility] 350.1.13.10 it [place] [id number] [facility] [address] 2020-02-14 2020-02-[address] [facility] [id number] [id number] Univers 00:00:00 00:00:00 Dannie Gaspar 350.1.13.10 [place] of [place] [phone] Ca dical [facility] [address] 2020-02-10 2020-02-10 Outpatient R [facility] [id number] Univers 09:00:00 09:00:00 ity of [facility] 2020-02-10 2020-02-10 Orders Doctor OCNNER 1.2.840.114 [id number] Univers 00:00:00 00:00:00 Only Unassigned, L[place] 350.1.13.10 ity of [place] [facility] 4.2.7.2.686 [place] [phone] [facility] [address] 2020-01-24 2020-01-24 Outpatient [facility] [id number] Univers 10:40:00 10:40:00 DANNIE arshad o f [facility] 2020-01-24 2020-01-24 Telemedici [facility] 1.2.840.114 [id number] Univers 07:57:10 08:17:10 ne Visit Dannie Gaspar 350.1.13.10 [place] [phone] Ca [place] 059 [facility] 2020-01-18 2020-01-18 Outpatient R [facility] [id number] Univers 13:00:00 13:00:00 ity of [facility] 2019-11-10 2019-11-10 Telephone Sandy Alexandre ROSY 1.2.840.114 [id number] Univers 00:00:00 00:00:00 [facility] 350.1.13.10 it y [place] [id number] [facility] [address] 2019-11-03 2019-11-03 Outpatient R ALEXANDRE DELGADO [facility] [id number] Univers 08:15:00 08:15:00 ity of [facility] 2019-10-25 2019-10-25 [facility] 1.2.840.114 [id number] Univers 08:48:06 09:27:18 Visit Annemarie AVIL[place] 350.1.13.10 ity of [facility] 4.2.[place].2.[place] AT [phone] Ca dical [place] 072 [facility] 2019-10-25 2019-10-25 Outpatient [facility] [id number] Univers 09:00:00 09:00:00 ANNEMARIE arshad o f [facility] 2019-10-24 2019-10-24 [facility] 1.2.840.114 [id number] Univers 10:57:17 15:44:20 Visit Dannie Gaspar 350.1.13.10 it[place] of [place] [phone] [place] 923139 [facility] 2019-10-24 2019-10-24 Outpatient R [facility] [id number] Univers 11:00:00 11:00:00 PRETTYAROLDO ity o f [facility] 2019-09-29 2019-09-29 Office Care, Ang Primary [place] 1.2.840 .114 [id number] Univers 10:38:08 11:16:42 Visit Alexandre Delgado [facility] 350.1.13.10 [place] [id number] [address] 2019-09-29 2019-09-29 Outpatient R ALEXANDRE DELGADO [facility] [id number] Univers 10:00:00 11:16:42 ity of [facility] 2019-09-14 2019-09-14 Telephone Alexandre DelgadoKAYLAH 1.2.840.114 [id number] Univers 00:00:00 00:00:00 [facility] 350.1.13.10 it [place] [id number] [address] 2019-09-08 2019-09-08 Orders Doctor CONNER 1.2.840.114 [id number] Univers 00:00:00 00:00:00 Only Unassigned, [place] 350.1.13.10 ity of [place] [facility] 4.2.7.2.686 [place] [phone] [place] [address] [address] 2019-05-05 2019-05-05 Telephone Alexandre Delgado 1.2.840.114 [id number] Univers 00:00:00 00:00:00 [facility] 350.1.13.10 it [place] [id number] [address] 2019-04-28 2019-04-28 Office Care, Ang Primary [place] 1.2.840 .114 [id number] Univers 09:26:40 11:38:19 Visit Alexandre Delgado 350.1.13.10 ity of HEALTH 4.2.7.2.686 [place] UN[place] [id number] [facility] [address] 2019-04-28 2019-04-28 Orders Doctor CONNER 1.2.840.114 [id number] [facility] 00:00:00 00:00:00 Only Unassigned, LES[place] 350.1.13.10 ity of [place] [facility] 4.2.7.2.686 [place] [phone] [facility] [address] Results Test Description Test Time Test Comments Results Result Comments Source TSH, THIRD GENERATION 2022-09-11 04:08:38 Test Item Value Reference Range Interpretation Comme nts TSH, THIRD GENERATION (test 2.060 UIU/ML 0.400-4.100 UNLESS OTHERWISE INDICATED, code = 2821) ALL TESTING PER FORMED ATCLINICAL PATH [facility]Bound[facility], [place] [address] 1820 ATTRACTIONS ASSOCIATE: Tracey COBB [id number] [place] [id number] COMPREHENSIVE METABOLIC [id number] 03:23:31 Test Item Value Reference Range Interpretation Comments GLUCOSE (test code = 80 MG/DL 70-99 2216) BUN (test code = 7 MG/DL 6-20 2207) CREATININE (test 0.55 MG/DL 0.60-1.30 L code = 2214) eGFR (2020 CKD-EPI) 127 >60 (test code = 78964) ML/MIN/1.73 CALC BUN/CREAT (test 13 RATIO -28 code = 2235) SODIUM (test code = 138 MEQ/L 606-006 6350) POTASSIUM (test code 3.9 MEQ/L 3.5-5.4 = 2227) CHLORIDE (test code 104 MEQ/L 95-107 = 2215) CARBON DIOXIDE (test 21 MEQ/L - code = 2206) CALCIUM (test code = 9.5 MG/DL 8.5-10.5 2208) PROTEIN, TOTAL (test 7.9 G/DL 6.1-8.3 code = 2229) ALBUMIN (test code = 4.2 G/DL 3.5-5.2 2200) CALC GLOBULIN (test 3.7 G/DL 1.9-3.7 code = 2240) CALC A/G RATIO (test 1.1 RATIO 1.0-2.6 code = 2234) BILIRUBIN, TOTAL 0.4 MG/DL See_Comment [Automated message] (test code = 7) The syste m which generated this result transmit inge reference range : <=1.2. The refe rence range was not u sed to interpret th is result as normal/abnormal . ALKALINE PHOSPHATASE 64 U/L 40-112 (test code = 2203) AST (test code = 20 U/L 9-40 2217) ALT (test code = 8 U/L 5-40 2218) CBC W/AUTO DIFF WITH [id number] 02:00:05 Test Item Value Reference Range Interpretation [...] RBCS 0.00 K/UL 0.00-0.11 (test code = 59226) CT/NG, NAAT, [id number] 20:52:50 Test Item Value Reference Range Interpretation Comments GONORRHEA, NAAT NEGATIVE NEGATIVE Note: Testi ng is (test code = 42905) performe d with Emili EDEL 6800/8800 systems using real-time polymerase cali n reaction (PCR) method. CHLAMYDIA, NAAT NEGATIVE NEGATIVE Note: Testi ng is (test code = 20985) performe d with Emili EDEL 6800/8800 systems using real-time polymerase cali n reaction (PCR) method. HIV 1/2 4TH GEN, RFLX [id number] 05:02:20 Test Item Value Reference Range Interpretation Comments HIV 1/2 4TH GEN, NON-REACTIVE NON-REACTIVE UNLESS OTH ERWISE RFLX CONF (test INDICATED, A LL TESTING code = 3514) PERFORMED [facility] [address] [place] [address] DIRECTOR: [place] AGUIRRE M.D. CLIA NUMBER [id number] CAP ACCREDITATION N O. [id number] HEPATITIS PANEL, [id number] 05:02:20 Test Item Value Reference Range Interpretation Comments HEPATITIS A IgM (test NON-REACTIVE NON-REACTIVE code = 52605) HEPATITIS B CORE IgM NON-REACTIVE NON-REACTIVE (test code = 4644) HEPATITIS B SURF AG NON-REACTIVE NON-REACTIVE (test code = 2739) HEPATITIS C ANTIBODY NON-REACTIVE NON-REACTIVE (test code = 4675) INTERPRETATION (NOTE) Hepatitis A HEPATITIS A: (test code sero logy shows no = 2552) evidence of acu te hepatitis A. INTERPRETATION (NOTE) Hepatitis B HEPATITIS B: (test code sero logy shows no = 64441) evidence of acu te hepatitis B and no indication of exposure to hepatitis B vir us in the previous alejandra eight months. INTERPRETATION (NOTE) Hepatitis C HEPATITIS C: (test code sero logy shows no = 07185) evidence of exposure to hepatitisC viru s at this time. I t can take up to 12 months after exposure tothe hepatitis C vir us for antibodies to become detectab le in the blood in certain patient s. RPR REFLEX TO T. PALLIDUM - [id number] 04:28:08 Test Item Value Reference Range Interpretation Comments RPR (test code = 29553) NON-REACTIVE NON-REACTIVE RPR TITER (test code = 3500) NOT INDIC. TITER NOT INDIC. CT/NG, TMA, [id number] 00:00:00 Test Item Value Reference Range Interpretation Comments GONORRHEA, NAAT (test code = 28484) NEGATIVE CHLAMYDIA, NAAT (test code = 97897) NEGATIVE CT/NG, TMA, [id number] 00:00:00 Test Item Value Reference Range Interpretation Comments GONORRHEA, NAAT (test code = 41442) NEGATIVE CHLAMYDIA, NAAT (test code = 10190) NEGATIVE RPR REFLEX TO T. PALLIDUM - [id number] 00:00:00 Test Item Value Reference Range Interpretation Comments RPR (test code = 17534) NON-REACTIVE RPR TITER (test code = 3500) NOT INDIC. TITER RPR REFLEX TO T. PALLIDUM - [id number] 00:00:00 Test Item Value Reference Range Interpretation Comments RPR (test code = 36710) NON-REACTIVE RPR TITER (test code = 3500) NOT INDIC. TITER ACUTE HEPATITIS [id number] 00:00:00 Test Item Value Reference Range Interpretation Comments HEPATITIS A IgM (test code = NON-REACTIVE 88346) HEPATITIS B CORE IgM (test code NON-REACTIVE = 4644) HEPATITIS B SURF AG (test code = NON-REACTIVE 2739) HEPATITIS C ANTIBODY (test code NON-REACTIVE = 4675) INTERPRETATION HEPATITIS A: (NOTE) (test code = 2552) INTERPRETATION HEPATITIS B: (NOTE) (test code = 02899) INTERPRETATION HEPATITIS C: (NOTE) (test code = 47876) ACUTE HEPATITIS [id number] 00:00:00 Test Item Value Reference Range Interpretation Comments HEPATITIS A IgM (test code = NON-REACTIVE 19336) HEPATITIS B CORE IgM (test code NON-REACTIVE = 4644) HEPATITIS B SURF AG (test code = NON-REACTIVE 1679) HEPATITIS C ANTIBODY (test code NON-REACTIVE = 4612) INTERPRETATION HEPATITIS A: (NOTE) (test code = 2552) INTERPRETATION HEPATITIS B: (NOTE) (test code = 37871) INTERPRETATION HEPATITIS C: (NOTE) (test code = 57553) HIV 1/2 4TH GEN, RFLX [id number] 00:00:00 Test Item Value Reference Range Interpretation Comments HIV 1/2 4TH GEN, RFLX CONF (test NON-REACTIVE code = 3514) HIV 1/2 4TH GEN, RFLX [id number] 00:00:00 Test Item Value Reference Range Interpretation Comments HIV 1/2 4TH GEN, RFLX CONF (test NON-REACTIVE code = 3514) VITAMIN D, 25 [id number] 03:25:23 Test Item Value Reference Range Interpretation [...] ATED, ALL TESTING PERFORM ED ATCLINICAL PATH OLOGY LABORATORIES, [place]. [address] [place] [address] LABORATORY DIRE CTOR: Rebeca COBB. CLIA NUMBER [id number] CAP ACCREDITATION N O. [id number] HIV 1/2 4TH GEN, RFLX [id number] 03:00:39 Test Item Value Reference Range Interpretation Comments HIV 1/2 4TH GEN, RFLX CONF (test NON-REACTIVE NON-REACTIVE code = 3514) HIV AB/AG COMBO RFLX [id number] 00:00:00 Test Item Value Reference Range Interpretation Comments HIV 1/2 4TH GEN, RFLX CONF (test NON-REACTIVE code = 3514) HIV AB/AG COMBO RFLX [id number] 00:00:00 Test Item Value Reference Range Interpretation Comments HIV 1/2 4TH GEN, RFLX CONF (test NON-REACTIVE code = 3514) VITAMIN D, 25 [id number] 00:00:00 Test Item Value Reference Range Interpretation Comments VITAMIN D, 25 OH (test code = 4958) 27 NG/ML VITAMIN D, 25 [id number] 00:00:00 Test Item Value Reference Range Interpretation Comments VITAMIN D, 25 OH (test code = 4958) 27 NG/ML HIV AB/AG COMBO RFLX [id number] 00:00:00 Test Item Value Reference Range Interpretation Comments HIV 1/2 4TH GEN, RFLX CONF (test NON-REACTIVE code = 3514) HIV AB/AG COMBO RFLX [id number] 00:00:00 Test Item Value Reference Range Interpretation Comments HIV 1/2 4TH GEN, RFLX CONF (test NON-REACTIVE code = 3514) VITAMIN D, 25 [id number] 00:00:00 Test Item Value Reference Range Interpretation Comments VITAMIN D, 25 OH (test code = 4958) 27 NG/ML VITAMIN D, 25 [id number] 00:00:00 Test Item Value Reference Range Interpretation Comments VITAMIN D, 25 OH (test code = 4958) 27 NG/ML HIV AB/AG COMBO RFLX [id number] 00:00:00 Test Item Value Reference Range Interpretation Comments HIV 1/2 4TH GEN, RFLX CONF (test NON-REACTIVE code = 3514) HIV AB/AG COMBO RFLX [id number] 00:00:00 Test Item Value Reference Range Interpretation Comments HIV 1/2 4TH GEN, RFLX CONF (test NON-REACTIVE code = 3514) VITAMIN D, 25 [id number] 00:00:00 Test Item Value Reference Range Interpretation Comments VITAMIN D, 25 OH (test code = 4958) 27 NG/ML VITAMIN D, 25 [id number] 00:00:00 Test Item Value Reference Range Interpretation Comments VITAMIN D, 25 OH (test code = 4958) 27 NG/ML TSH, THIRD [id number] 00:19:50 Test Item Value Reference Range Interpretation Comments TSH, THIRD GENERATION (test code 1.090 UIU/ML 0.400-4.100 = 2821) [id number] 00:00:00 Test Item Value Reference Range Interpretation Comments TSH, THIRD GENERATION (test code 1.090 UIU/ML = 2821) [id number] 00:00:00 Test Item Value Reference Range Interpretation Comments TSH, THIRD GENERATION (test code 1.090 UIU/ML = 2821) [id number] 00:00:00 Test Item Value Reference Range Interpretation Comments TSH, THIRD GENERATION (test code 1.090 UIU/ML = 2821) [id number] 00:00:00 Test Item Value Reference Range Interpretation Comments TSH, THIRD GENERATION (test code 1.090 UIU/ML = 2821) [id number] 00:00:00 Test Item Value Reference Range Interpretation Comments TSH, THIRD GENERATION (test code 1.090 UIU/ML = 2821) [id number] 00:00:00 Test Item Value Reference Range Interpretation Comments TSH, THIRD GENERATION (test code 1.090 UIU/ML = 2821) [id number] 00:00:00 Test Item Value Reference Range Interpretation Comments TSH, THIRD GENERATION (test code 1.090 UIU/ML = 2821) [id number] 00:00:00 Test Item Value Reference Range Interpretation Comments TSH, THIRD GENERATION (test code 1.090 UIU/ML = 2821) [id number] 00:00:00 Test Item Value Reference Range Interpretation Comments TSH, THIRD GENERATION (test code 1.090 UIU/ML = 2821) LIPID [id number] 23:59:41 Test Item Value Reference Range Interpretation [...] MOREINFORMATION , SEE CLIENT ANNOUNCE MENT AT [email or web address]-C RISK RATIO LDL/HDL 1.79 RATIO <3.22 (test code = 2238) COMPREHENSIVE METABOLIC [id number] 23:59:41 Test Item Value Reference Range Interpretation Comments GLUCOSE (test code = 77 MG/DL 70-99 2216) BUN (test code = 8 MG/DL 6-20 2207) CREATININE (test 0.67 MG/DL 0.60-1.30 EFFECTIVE code = 2214) 08/12/2021, [facility] HAS IMPLEMENTED THE NKF-ASN RECOMME NDED KD-EPI EGF R REFIT CALCULATI ON THAT DOES NOT INCLUDE A COEFFICIENT FOR RACE. FOR MORE INFORMATION, SE E ANNOUNCEMENT [email or web address] eGFR (2020 CKD-EPI) 122 >60 (test code = 37517) ML/MIN/1.73 CALC BUN/CREAT (test 12 RATIO 6-28 code = 2235) SODIUM (test code = 141 MEQ/L 894-241 3753) POTASSIUM (test code 4.0 MEQ/L 3.5-5.4 = [...] MG/DL See_Comment [Automated message] (test code = 2206) The syste m which generated this result transmit inge reference range : <=1.2. The refe rence range was not u sed to interpret th is result as normal/abnormal . ALKALINE PHOSPHATASE 56 U/L 40-112 (test code = 2203) AST (test code = 63 U/L 9-40 H 2217) ALT (test code = 92 U/L 5-40 H 221) HEMOGLOBIN [id number] 03:14:31 Test Item Value Reference Range Interpretation Comments HEMOGLOBIN A1c (test code = 34576) 6.0 % 4.2-5.6 H CBC W/AUTO DIFF WITH [id number] 03:06:02 Test Item Value Reference Range Interpretation [...] RBCS 0.00 K/UL 0.00-0.11 (test code = 64710) CBC W/AUTO [id number] 00:00:00 Test Item Value Reference Range Interpretation [...] NUCLEATED RBCS (test code = 0.00 K/UL 80545) CBC W/AUTO [id number] 00:00:00 Test Item Value Reference Range Interpretation [...] NUCLEATED RBCS (test code = 0.00 K/UL 79517) CBC W/AUTO [id number] 00:00:00 Test Item Value Reference Range Interpretation [...] NUCLEATED RBCS (test code = 0.00 K/UL 90340) HEMOGLOBIN [id number] 00:00:00 Test Item Value Reference Range Interpretation Comments HEMOGLOBIN A1c (test code = 85338) 6.0 % HEMOGLOBIN [id number] 00:00:00 Test Item Value Reference Range Interpretation Comments HEMOGLOBIN A1c (test code = 91872) 6.0 % HEMOGLOBIN [id number] 00:00:00 Test Item Value Reference Range Interpretation Comments HEMOGLOBIN A1c (test code = 61491) 6.0 % LIPID [id number] 00:00:00 Test Item Value Reference Range Interpretation Comments CHOLESTEROL (test code = 2210) 124 MG/DL TRIGLYCERIDES (test code = 2232) 69 MG/DL HDL CHOLESTEROL (test code = 2220) 39 MG/DL CALC LDL CHOL (test code = 2237) 70 MG/DL RISK RATIO LDL/HDL (test code = 1.79 RATIO 2238) LIPID [id number] 00:00:00 Test Item Value Reference Range Interpretation Comments CHOLESTEROL (test code = 2210) 124 MG/DL TRIGLYCERIDES (test code = 2232) 69 MG/DL HDL CHOLESTEROL (test code = 2220) 39 MG/DL CALC LDL CHOL (test code = 2237) 70 MG/DL RISK RATIO LDL/HDL (test code = 1.79 RATIO 2238) COMPREHENSIVE METABOLIC [id number] 00:00:00 Test Item Value Reference Range Interpretation Comments GLUCOSE (test code = 2217) 77 MG/DL BUN (test code = 2208) 8 MG/DL CREATININE (test code = 2214) 0.67 MG/DL eGFR (2020 CKD-EPI) (test 122 ML/MIN/1.73 code = 86970) CALC BUN/CREAT (test code = 12 RATIO [...] code = 2219) 92 U/L COMPREHENSIVE METABOLIC [id number] 00:00:00 Test Item Value Reference Range Interpretation Comments GLUCOSE (test code = 2217) 77 MG/DL BUN (test code = 2208) 8 MG/DL CREATININE (test code = 2214) 0.67 MG/DL eGFR (2020 CKD-EPI) (test 122 ML/MIN/1.73 code = 49062) CALC BUN/CREAT (test code = 12 RATIO [...] code = 2219) 92 U/L CBC W/AUTO [id number] 00:00:00 Test Item Value Reference Range Interpretation [...] NUCLEATED RBCS (test code = 0.00 K/UL 18463) CBC W/AUTO [id number] 00:00:00 Test Item Value Reference Range Interpretation [...] NUCLEATED RBCS (test code = 0.00 K/UL 97306) CBC W/AUTO [id number] 00:00:00 Test Item Value Reference Range Interpretation [...] NUCLEATED RBCS (test code = 0.00 K/UL 73910) CBC W/AUTO [id number] 00:00:00 Test Item Value Reference Range Interpretation [...] NUCLEATED RBCS (test code = 0.00 K/UL 15415) HEMOGLOBIN [id number] 00:00:00 Test Item Value Reference Range Interpretation Comments HEMOGLOBIN A1c (test code = 10613) 6.0 % HEMOGLOBIN [id number] 00:00:00 Test Item Value Reference Range Interpretation Comments HEMOGLOBIN A1c (test code = 16878) 6.0 % HEMOGLOBIN [id number] 00:00:00 Test Item Value Reference Range Interpretation Comments HEMOGLOBIN A1c (test code = 00694) 6.0 % LIPID [id number] 00:00:00 Test Item Value Reference Range Interpretation Comments CHOLESTEROL (test code = 2210) 124 MG/DL TRIGLYCERIDES (test code = 2232) 69 MG/DL HDL CHOLESTEROL (test code = 2220) 39 MG/DL CALC LDL CHOL (test code = 2237) 70 MG/DL RISK RATIO LDL/HDL (test code = 1.79 RATIO 2238) LIPID [id number] 00:00:00 Test Item Value Reference Range Interpretation Comments CHOLESTEROL (test code = 2210) 124 MG/DL TRIGLYCERIDES (test code = 2232) 69 MG/DL HDL CHOLESTEROL (test code = 2220) 39 MG/DL CALC LDL CHOL (test code = 2237) 70 MG/DL RISK RATIO LDL/HDL (test code = 1.79 RATIO 2238) COMPREHENSIVE METABOLIC [id number] 00:00:00 Test Item Value Reference Range Interpretation Comments GLUCOSE (test code = 2217) 77 MG/DL BUN (test code = 2208) 8 MG/DL CREATININE (test code = 2214) 0.67 MG/DL eGFR (2020 CKD-EPI) (test 122 ML/MIN/1.73 code = 60265) CALC BUN/CREAT (test code = 12 RATIO [...] code = 2219) 92 U/L COMPREHENSIVE METABOLIC [id number] 00:00:00 Test Item Value Reference Range Interpretation Comments GLUCOSE (test code = 2217) 77 MG/DL BUN (test code = 2208) 8 MG/DL CREATININE (test code = 2214) 0.67 MG/DL eGFR (2020 CKD-EPI) (test 122 ML/MIN/1.73 code = 58566) CALC BUN/CREAT (test code = 12 RATIO [...] CALC GLOBULIN (test code = 3.4 G/DL 2239) CALC A/G RATIO (test code = 1.2 RATIO 2233) BILIRUBIN, TOTAL (test code = 0.3 MG/DL 2206) ALKALINE PHOSPHATASE (test 56 U/L code = 2204) AST (test code = 2218) 63 U/L ALT (test code = 2219) 92 U/L CBC W/AUTO [id number] 00:00:00 Test Item Value Reference Range Interpretation [...] NUCLEATED RBCS (test code = 0.00 K/UL 94333) CBC W/AUTO [id number] 00:00:00 Test Item Value Reference Range Interpretation [...] NUCLEATED RBCS (test code = 0.00 K/UL 12264) HEMOGLOBIN [id number] 00:00:00 Test Item Value Reference Range Interpretation Comments HEMOGLOBIN A1c (test code = 68606) 6.0 % HEMOGLOBIN [id number] 00:00:00 Test Item Value Reference Range Interpretation Comments HEMOGLOBIN A1c (test code = 22932) 6.0 % HEMOGLOBIN [id number] 00:00:00 Test Item Value Reference Range Interpretation Comments HEMOGLOBIN A1c (test code = 74516) 6.0 % LIPID [id number] 00:00:00 Test Item Value Reference Range Interpretation Comments CHOLESTEROL (test code = 2210) 124 MG/DL TRIGLYCERIDES (test code = 2232) 69 MG/DL HDL CHOLESTEROL (test code = 2220) 39 MG/DL CALC LDL CHOL (test code = 2237) 70 MG/DL RISK RATIO LDL/HDL (test code = 1.79 RATIO 2238) LIPID [id number] 00:00:00 Test Item Value Reference Range Interpretation Comments CHOLESTEROL (test code = 2210) 124 MG/DL TRIGLYCERIDES (test code = 2232) 69 MG/DL HDL CHOLESTEROL (test code = 2220) 39 MG/DL CALC LDL CHOL (test code = 2237) 70 MG/DL RISK RATIO LDL/HDL (test code = 1.79 RATIO 2238) COMPREHENSIVE METABOLIC [id number] 00:00:00 Test Item Value Reference Range Interpretation Comments GLUCOSE (test code = 2217) 77 MG/DL BUN (test code = 2208) 8 MG/DL CREATININE (test code = 2214) 0.67 MG/DL eGFR (2020 CKD-EPI) (test 122 ML/MIN/1.73 code = 25293) CALC BUN/CREAT (test code = 12 RATIO [...] code = 2219) 92 U/L COMPREHENSIVE METABOLIC [id number] 00:00:00 Test Item Value Reference Range Interpretation Comments GLUCOSE (test code = 2217) 77 MG/DL BUN (test code = 2208) 8 MG/DL CREATININE (test code = 2214) 0.67 MG/DL eGFR (2020 CKD-EPI) (test 122 ML/MIN/1.73 code = 45614) CALC BUN/CREAT (test code = 12 RATIO [...] A/G RATIO (test code = 1.2 RATIO 2233) BILIRUBIN, TOTAL (test code = 0.3 MG/DL 2206) ALKALINE PHOSPHATASE (test 56 U/L code = 2204) AST (test code = 2218) 63 U/L ALT (test code = 2219) 92 U/L MR KNEE LEFT WO [id number] 21:23:01 Stable MRI with lateral patellar subluxation [...] reviewed this study and agree with the abovereport.[facility] 2020-03-16 13:46:56 Large [...] thePA view. No fracture is appreciated.IMPRESSIONLarge effusion.No fracture.[facility], [id number] 00:00:00 Test Item Value Reference Range Interpretation Comments HCG, QUANTITATIVE (test code = <5 MIU/ML 2506) HCG, [id number] 00:00:00 Test Item Value Reference Range Interpretation Comments HCG, QUANTITATIVE (test code = <5 MIU/ML 2506) HCG, [id number] 00:00:00 Test Item Value Reference Range Interpretation Comments HCG, QUANTITATIVE (test code = <5 MIU/ML 2506) HCG, [id number] 00:00:00 Test Item Value Reference Range Interpretation Comments HCG, QUANTITATIVE (test code = <5 MIU/ML 2506) HCG, [id number] 00:00:00 Test Item Value Reference Range Interpretation Comments HCG, QUANTITATIVE (test code = <5 MIU/ML 2506) HCG, [id number] 00:00:00 Test Item Value Reference Range Interpretation Comments HCG, QUANTITATIVE (test code = <5 MIU/ML 2506) HCG, [id number] 00:00:00 Test Item Value Reference Range Interpretation Comments HCG, QUANTITATIVE (test code = <5 MIU/ML 2506) HCG, [id number] 00:00:00 Test Item Value Reference Range Interpretation Comments HCG, QUANTITATIVE (test code = <5 MIU/ML 2506) HCG, [id number] 00:00:00 Test Item Value Reference Range Interpretation Comments HCG, QUANTITATIVE (test code = <5 MIU/ML 2506) HCG, [id number] 00:00:00 Test Item Value Reference Range Interpretation Comments HCG, QUANTITATIVE (test TEST NOT PERFORMED code = 2506) MIU/ML HCG, [id number] 00:00:00 Test Item Value Reference Range Interpretation Comments HCG, QUANTITATIVE (test TEST NOT PERFORMED code = 2506) MIU/ML HCG, [id number] 00:00:00 Test Item Value Reference Range Interpretation Comments HCG, QUANTITATIVE (test TEST NOT PERFORMED code = 2506) MIU/ML HCG, [id number] 00:00:00 Test Item Value Reference Range Interpretation Comments HCG, QUANTITATIVE (test TEST NOT PERFORMED code = 2506) MIU/ML HCG, [id number] 00:00:00 Test Item Value Reference Range Interpretation Comments HCG, QUANTITATIVE (test TEST NOT PERFORMED code = 2506) MIU/ML HCG, [id number] 00:00:00 Test Item Value Reference Range Interpretation Comments HCG, QUANTITATIVE (test TEST NOT PERFORMED code = 2506) MIU/ML HCG, [id number] 00:00:00 Test Item Value Reference Range Interpretation Comments HCG, QUANTITATIVE (test TEST NOT PERFORMED code = 2506) MIU/ML HCG, [id number] 00:00:00 Test Item Value Reference Range Interpretation Comments HCG, QUANTITATIVE (test TEST NOT PERFORMED code = 2506) MIU/ML HCG, [id number] 00:00:00 Test Item Value Reference Range Interpretation Comments HCG, QUANTITATIVE (test TEST NOT PERFORMED code = 2506) MIU/ML CHLAMYDIA, AMPLIFIED, [id number] 00:00:00 Test Item Value Reference Range Interpretation Comments CHLAMYDIA, TMA (test code = 44141) NEGATIVE CHLAMYDIA, AMPLIFIED, [id number] 00:00:00 Test Item Value Reference Range Interpretation Comments CHLAMYDIA, TMA (test code = 40582) NEGATIVE GC, AMPLIFIED, [id number] 00:00:00 Test Item Value Reference Range Interpretation Comments GONORRHEA, TMA (test code = 12345) NEGATIVE GC, AMPLIFIED, [id number] 00:00:00 Test Item Value Reference Range Interpretation Comments GONORRHEA, TMA (test code = 76335) NEGATIVE CHLAMYDIA, AMPLIFIED, [id number] 00:00:00 Test Item Value Reference Range Interpretation Comments CHLAMYDIA, TMA (test code = 95551) NEGATIVE CHLAMYDIA, AMPLIFIED, [id number] 00:00:00 Test Item Value Reference Range Interpretation Comments CHLAMYDIA, TMA (test code = 66324) NEGATIVE GC, AMPLIFIED, [id number] 00:00:00 Test Item Value Reference Range Interpretation Comments GONORRHEA, TMA (test code = 88469) NEGATIVE GC, AMPLIFIED, [id number] 00:00:00 Test Item Value Reference Range Interpretation Comments GONORRHEA, TMA (test code = 21887) NEGATIVE CHLAMYDIA, AMPLIFIED, [id number] 00:00:00 Test Item Value Reference Range Interpretation Comments CHLAMYDIA, TMA (test code = 58103) NEGATIVE CHLAMYDIA, AMPLIFIED, [id number] 00:00:00 Test Item Value Reference Range Interpretation Comments CHLAMYDIA, TMA (test code = 08550) NEGATIVE GC, AMPLIFIED, [id number] 00:00:00 Test Item Value Reference Range Interpretation Comments GONORRHEA, TMA (test code = 50065) NEGATIVE GC, AMPLIFIED, [id number] 00:00:00 Test Item Value Reference Range Interpretation Comments GONORRHEA, TMA (test code = 76935) NEGATIVE HIV AB/AG COMBO RFLX [id number] 00:00:00 Test Item Value Reference Range Interpretation Comments HIV 1/2 4TH GEN, RFLX CONF (test NON-REACTIVE code = 3514) HIV AB/AG COMBO RFLX [id number] 00:00:00 Test Item Value Reference Range Interpretation Comments HIV 1/2 4TH GEN, RFLX CONF (test NON-REACTIVE code = 3514) ACUTE HEPATITIS [id number] 00:00:00 Test Item Value Reference Range Interpretation Comments HEPATITIS A IgM (test code = NON-REACTIVE 93361) HEPATITIS B CORE IgM (test code NON-REACTIVE = 4644) HEPATITIS B SURF AG (test code = NON-REACTIVE 2739) HEPATITIS C ANTIBODY (test code NON-REACTIVE = 4675) INTERPRETATION HEPATITIS A: (NOTE) (test code = 2552) INTERPRETATION HEPATITIS B: (NOTE) (test code = 09280) INTERPRETATION HEPATITIS C: (NOTE) (test code = 17754) ACUTE HEPATITIS [id number] 00:00:00 Test Item Value Reference Range Interpretation Comments HEPATITIS A IgM (test code = NON-REACTIVE 64270) HEPATITIS B CORE IgM (test code NON-REACTIVE = 4644) HEPATITIS B SURF AG (test code = NON-REACTIVE 2739) HEPATITIS C ANTIBODY (test code NON-REACTIVE = 4675) INTERPRETATION HEPATITIS A: (NOTE) (test code = 2552) INTERPRETATION HEPATITIS B: (NOTE) (test code = 46179) INTERPRETATION HEPATITIS C: (NOTE) (test code = 10126) [id number] 00:00:00 Test Item Value Reference Range Interpretation Comments RPR RESULT (test code = NON-REACTIVE 3501) RPR TITER (test code = 3500) NOT INDIC. TITER [id number] 00:00:00 Test Item Value Reference Range Interpretation Comments RPR RESULT (test code = NON-REACTIVE 3501) RPR TITER (test code = 3500) NOT INDIC. TITER [id number] 00:00:00 Test Item Value Reference Range Interpretation Comments RPR RESULT (test code = NON-REACTIVE 3501) RPR TITER (test code = 3500) NOT INDIC. TITER HIV AB/AG COMBO RFLX [id number] 00:00:00 Test Item Value Reference Range Interpretation Comments HIV 1/2 4TH GEN, RFLX CONF (test NON-REACTIVE code = 3514) HIV AB/AG COMBO RFLX [id number] 00:00:00 Test Item Value Reference Range Interpretation Comments HIV 1/2 4TH GEN, RFLX CONF (test NON-REACTIVE code = 3514) HIV AB/AG COMBO RFLX [id number] 00:00:00 Test Item Value Reference Range Interpretation Comments HIV 1/2 4TH GEN, RFLX CONF (test NON-REACTIVE code = 3514) ACUTE HEPATITIS [id number] 00:00:00 Test Item Value Reference Range Interpretation Comments HEPATITIS A IgM (test code = NON-REACTIVE 17903) HEPATITIS B CORE IgM (test code NON-REACTIVE = 4644) HEPATITIS B SURF AG (test code = NON-REACTIVE 2739) HEPATITIS C ANTIBODY (test code NON-REACTIVE = 4675) INTERPRETATION HEPATITIS A: (NOTE) (test code = 2552) INTERPRETATION HEPATITIS B: (NOTE) (test code = 62200) INTERPRETATION HEPATITIS C: (NOTE) (test code = 20113) ACUTE HEPATITIS [id number] 00:00:00 Test Item Value Reference Range Interpretation Comments HEPATITIS A IgM (test code = NON-REACTIVE 52772) HEPATITIS B CORE IgM (test code NON-REACTIVE = 4644) HEPATITIS B SURF AG (test code = NON-REACTIVE 2739) HEPATITIS C ANTIBODY (test code NON-REACTIVE = 4675) INTERPRETATION HEPATITIS A: (NOTE) (test code = 2552) INTERPRETATION HEPATITIS B: (NOTE) (test code = 32974) INTERPRETATION HEPATITIS C: (NOTE) (test code = 75819) [id number] 00:00:00 Test Item Value Reference Range Interpretation Comments RPR RESULT (test code = NON-REACTIVE 3501) RPR TITER (test code = 3500) NOT INDIC. TITER [id number] 00:00:00 Test Item Value Reference Range Interpretation Comments RPR RESULT (test code = NON-REACTIVE 3501) RPR TITER (test code = 3500) NOT INDIC. TITER [id number] 00:00:00 Test Item Value Reference Range Interpretation Comments RPR RESULT (test code = NON-REACTIVE 3501) RPR TITER (test code = 3500) NOT INDIC. TITER HIV AB/AG COMBO RFLX [id number] 00:00:00 Test Item Value Reference Range Interpretation Comments HIV 1/2 4TH GEN, RFLX CONF (test NON-REACTIVE code = 3514) ACUTE HEPATITIS [id number] 00:00:00 Test Item Value Reference Range Interpretation Comments HEPATITIS A IgM (test code = NON-REACTIVE 03137) HEPATITIS B CORE IgM (test code NON-REACTIVE = 4644) HEPATITIS B SURF AG (test code = NON-REACTIVE 2739) HEPATITIS C ANTIBODY (test code NON-REACTIVE = 4675) INTERPRETATION HEPATITIS A: (NOTE) (test code = 2552) INTERPRETATION HEPATITIS B: (NOTE) (test code = 76313) INTERPRETATION HEPATITIS C: (NOTE) (test code = 10400) ACUTE HEPATITIS [id number] 00:00:00 Test Item Value Reference Range Interpretation Comments HEPATITIS A IgM (test code = NON-REACTIVE 66832) HEPATITIS B CORE IgM (test code NON-REACTIVE = 4644) HEPATITIS B SURF AG (test code = NON-REACTIVE 2739) HEPATITIS C ANTIBODY (test code NON-REACTIVE = 4675) INTERPRETATION HEPATITIS A: (NOTE) (test code = 2552) INTERPRETATION HEPATITIS B: (NOTE) (test code = 05704) INTERPRETATION HEPATITIS C: (NOTE) (test code = 76342) [id number] 00:00:00 Test Item Value Reference Range Interpretation Comments RPR RESULT (test code = NON-REACTIVE 3501) RPR TITER (test code = 3500) NOT INDIC. TITER [id number] 00:00:00 Test Item Value Reference Range Interpretation Comments RPR RESULT (test code = NON-REACTIVE 3501) RPR TITER (test code = 3500) NOT INDIC. TITER [id number] 00:00:00 Test Item Value Reference Range Interpretation Comments RPR RESULT (test code = NON-REACTIVE 3501) RPR TITER (test code = 3500) NOT INDIC. TITER HIV AB/AG COMBO RFLX [id number] 00:00:00 Test Item Value Reference Range Interpretation Comments HIV 1/2 4TH GEN, RFLX CONF (test NON-REACTIVE code = 3514) HIV AB/AG COMBO RFLX [id number] 00:00:00 Test Item Value Reference Range Interpretation Comments HIV 1/2 4TH GEN, RFLX CONF (test NON-REACTIVE code = 3514) ACUTE HEPATITIS [id number] 00:00:00 Test Item Value Reference Range Interpretation Comments HEPATITIS A IgM (test code = NON-REACTIVE 49149) HEPATITIS B CORE IgM (test code NON-REACTIVE = 4644) HEPATITIS B SURF AG (test code = NON-REACTIVE 2739) HEPATITIS C ANTIBODY (test code NON-REACTIVE = 4675) HCV INDEX (test code = 30139) 0.13 INTERPRETATION HEPATITIS A: (NOTE) (test code = 2552) INTERPRETATION HEPATITIS B: (NOTE) (test code = 68472) INTERPRETATION HEPATITIS C: (NOTE) (test code = 99990) ACUTE HEPATITIS [id number] 00:00:00 Test Item Value Reference Range Interpretation Comments HEPATITIS A IgM (test code = NON-REACTIVE 29006) HEPATITIS B CORE IgM (test code NON-REACTIVE = 4644) HEPATITIS B SURF AG (test code = NON-REACTIVE 2739) HEPATITIS C ANTIBODY (test code NON-REACTIVE = 4675) HCV INDEX (test code = 51652) 0.13 INTERPRETATION HEPATITIS A: (NOTE) (test code = 2552) INTERPRETATION HEPATITIS B: (NOTE) (test code = 00950) INTERPRETATION HEPATITIS C: (NOTE) (test code = 43971) GC AND CHLAMYDIA, AMPLIFIED, [id number] 00:00:00 Test Item Value Reference Range Interpretation Comments GONORRHEA, TMA (test code = 51717) NEGATIVE CHLAMYDIA, TMA (test code = 71498) NEGATIVE GC AND CHLAMYDIA, AMPLIFIED, [id number] 00:00:00 Test Item Value Reference Range Interpretation Comments GONORRHEA, TMA (test code = 70522) NEGATIVE CHLAMYDIA, TMA (test code = 39360) NEGATIVE [id number] 00:00:00 Test Item Value Reference Range Interpretation Comments RPR RESULT (test code = NON-REACTIVE 3501) RPR TITER (test code = 3500) NOT INDIC. TITER [id number] 00:00:00 Test Item Value Reference Range Interpretation Comments RPR RESULT (test code = NON-REACTIVE 3501) RPR TITER (test code = 3500) NOT INDIC. TITER [id number] 00:00:00 Test Item Value Reference Range Interpretation Comments RPR RESULT (test code = NON-REACTIVE 3501) RPR TITER (test code = 3500) NOT INDIC. TITER HIV AB/AG COMBO RFLX [id number] 00:00:00 Test Item Value Reference Range Interpretation Comments HIV 1/2 4TH GEN, RFLX CONF (test NON-REACTIVE code = 3514) HIV AB/AG COMBO RFLX [id number] 00:00:00 Test Item Value Reference Range Interpretation Comments HIV 1/2 4TH GEN, RFLX CONF (test NON-REACTIVE code = 3514) HIV AB/AG COMBO RFLX [id number] 00:00:00 Test Item Value Reference Range Interpretation Comments HIV 1/2 4TH GEN, RFLX CONF (test NON-REACTIVE code = 3514) ACUTE HEPATITIS [id number] 00:00:00 Test Item Value Reference Range Interpretation Comments HEPATITIS A IgM (test code = NON-REACTIVE 80964) HEPATITIS B CORE IgM (test code NON-REACTIVE = 4644) HEPATITIS B SURF AG (test code = NON-REACTIVE 2739) HEPATITIS C ANTIBODY (test code NON-REACTIVE = 4675) HCV INDEX (test code = 20252) 0.13 INTERPRETATION HEPATITIS A: (NOTE) (test code = 2552) INTERPRETATION HEPATITIS B: (NOTE) (test code = 91704) INTERPRETATION HEPATITIS C: (NOTE) (test code = 42461) ACUTE HEPATITIS [id number] 00:00:00 Test Item Value Reference Range Interpretation Comments HEPATITIS A IgM (test code = NON-REACTIVE 92566) HEPATITIS B CORE IgM (test code NON-REACTIVE = 4644) HEPATITIS B SURF AG (test code = NON-REACTIVE 2739) HEPATITIS C ANTIBODY (test code NON-REACTIVE = 4675) HCV INDEX (test code = 57163) 0.13 INTERPRETATION HEPATITIS A: (NOTE) (test code = 2552) INTERPRETATION HEPATITIS B: (NOTE) (test code = 90996) INTERPRETATION HEPATITIS C: (NOTE) (test code = 72755) HIV AB/AG COMBO RFLX [id number] 00:00:00 Test Item Value Reference Range Interpretation Comments HIV 1/2 4TH GEN, RFLX CONF (test NON-REACTIVE code = 3514) GC AND CHLAMYDIA, AMPLIFIED, [id number] 00:00:00 Test Item Value Reference Range Interpretation Comments GONORRHEA, TMA (test code = 78420) NEGATIVE CHLAMYDIA, TMA (test code = 46887) NEGATIVE GC AND CHLAMYDIA, AMPLIFIED, [id number] 00:00:00 Test Item Value Reference Range Interpretation Comments GONORRHEA, TMA (test code = 42114) NEGATIVE CHLAMYDIA, TMA (test code = 65013) NEGATIVE [id number] 00:00:00 Test Item Value Reference Range Interpretation Comments RPR RESULT (test code = NON-REACTIVE 3501) RPR TITER (test code = 3500) NOT INDIC. TITER [id number] 00:00:00 Test Item Value Reference Range Interpretation Comments RPR RESULT (test code = NON-REACTIVE 3501) RPR TITER (test code = 3500) NOT INDIC. TITER [id number] 00:00:00 Test Item Value Reference Range Interpretation Comments RPR RESULT (test code = NON-REACTIVE 3501) RPR TITER (test code = 3500) NOT INDIC. TITER ACUTE HEPATITIS [id number] 00:00:00 Test Item Value Reference Range Interpretation Comments HEPATITIS A IgM (test code = NON-REACTIVE 17962) HEPATITIS B CORE IgM (test code NON-REACTIVE = 4644) HEPATITIS B SURF AG (test code = NON-REACTIVE 2739) HEPATITIS C ANTIBODY (test code NON-REACTIVE = 4675) HCV INDEX (test code = 32381) 0.13 INTERPRETATION HEPATITIS A: (NOTE) (test code = 2552) INTERPRETATION HEPATITIS B: (NOTE) (test code = 81551) INTERPRETATION HEPATITIS C: (NOTE) (test code = 64455) ACUTE HEPATITIS [id number] 00:00:00 Test Item Value Reference Range Interpretation Comments HEPATITIS A IgM (test code = NON-REACTIVE 43582) HEPATITIS B CORE IgM (test code NON-REACTIVE = 4644) HEPATITIS B SURF AG (test code = NON-REACTIVE 2739) HEPATITIS C ANTIBODY (test code NON-REACTIVE = 4675) HCV INDEX (test code = 18422) 0.13 INTERPRETATION HEPATITIS A: (NOTE) (test code = 2552) INTERPRETATION HEPATITIS B: (NOTE) (test code = 49982) INTERPRETATION HEPATITIS C: (NOTE) (test code = 55679) GC AND CHLAMYDIA, AMPLIFIED, [id number] 00:00:00 Test Item Value Reference Range Interpretation Comments GONORRHEA, TMA (test code = 22294) NEGATIVE CHLAMYDIA, TMA (test code = 61400) NEGATIVE GC AND CHLAMYDIA, AMPLIFIED, [id number] 00:00:00 Test Item Value Reference Range Interpretation Comments GONORRHEA, TMA (test code = 08151) NEGATIVE CHLAMYDIA, TMA (test code = 41585) NEGATIVE [id number] 00:00:00 Test Item Value Reference Range Interpretation Comments RPR RESULT (test code = NON-REACTIVE 3501) RPR TITER (test code = 3500) NOT INDIC. TITER [id number] 00:00:00 Test Item Value Reference Range Interpretation Comments RPR RESULT (test code = NON-REACTIVE 3501) RPR TITER (test code = 3500) NOT INDIC. TITER [id number] 00:00:00 Test Item Value Reference Range Interpretation Comments RPR RESULT (test code = NON-REACTIVE 3501) RPR TITER (test code = 3500) NOT INDIC. TITER [id number] 00:00:00 Test Item Value Reference Range Interpretation Comments RPR RESULT (test code = NON-REACTIVE 3501) RPR TITER (test code = 3500) NOT INDIC. TITER [id number] 00:00:00 Test Item Value Reference Range Interpretation Comments RPR RESULT (test code = NON-REACTIVE 3501) RPR TITER (test code = 3500) NOT INDIC. TITER [id number] 00:00:00 Test Item Value Reference Range Interpretation Comments RPR RESULT (test code = NON-REACTIVE 3501) RPR TITER (test code = 3500) NOT INDIC. TITER HIV AB/AG COMBO RFLX [id number] 00:00:00 Test Item Value Reference Range Interpretation Comments HIV 1/2 4TH GEN, RFLX CONF (test NON-REACTIVE code = 3514) HIV AB/AG COMBO RFLX [id number] 00:00:00 Test Item Value Reference Range Interpretation Comments HIV 1/2 4TH GEN, RFLX CONF (test NON-REACTIVE code = 3514) [id number] 00:00:00 Test Item Value Reference Range Interpretation Comments RPR RESULT (test code = NON-REACTIVE 3501) RPR TITER (test code = 3500) NOT INDIC. TITER [id number] 00:00:00 Test Item Value Reference Range Interpretation Comments RPR RESULT (test code = NON-REACTIVE 3501) RPR TITER (test code = 3500) NOT INDIC. TITER [id number] 00:00:00 Test Item Value Reference Range Interpretation Comments RPR RESULT (test code = NON-REACTIVE 3501) RPR TITER (test code = 3500) NOT INDIC. TITER [id number] 00:00:00 Test Item Value Reference Range Interpretation Comments RPR RESULT (test code = NON-REACTIVE 3501) RPR TITER (test code = 3500) NOT INDIC. TITER HIV AB/AG COMBO RFLX [id number] 00:00:00 Test Item Value Reference Range Interpretation Comments HIV 1/2 4TH GEN, RFLX CONF (test NON-REACTIVE code = 3514) HIV AB/AG COMBO RFLX [id number] 00:00:00 Test Item Value Reference Range Interpretation Comments HIV 1/2 4TH GEN, RFLX CONF (test NON-REACTIVE code = 3514) [id number] 00:00:00 Test Item Value Reference Range Interpretation Comments RPR RESULT (test code = NON-REACTIVE 3501) RPR TITER (test code = 3500) NOT INDIC. TITER [id number] 00:00:00 Test Item Value Reference Range Interpretation Comments RPR RESULT (test code = NON-REACTIVE 3501) RPR TITER (test code = 3500) NOT INDIC. TITER HIV AB/AG COMBO RFLX [id number] 00:00:00 Test Item Value Reference Range Interpretation Comments HIV 1/2 4TH GEN, RFLX CONF (test NON-REACTIVE code = 3514) HIV AB/AG COMBO RFLX [id number] 00:00:00 Test Item Value Reference Range Interpretation Comments HIV 1/2 4TH GEN, RFLX CONF (test NON-REACTIVE code = 3514) GC AND CHLAMYDIA, AMPLIFIED, [id number] 00:00:00 Test Item Value Reference Range Interpretation Comments GONORRHEA, TMA (test code = 28139) NEGATIVE CHLAMYDIA, TMA (test code = 80504) NEGATIVE GC AND CHLAMYDIA, AMPLIFIED, [id number] 00:00:00 Test Item Value Reference Range Interpretation Comments GONORRHEA, TMA (test code = 34591) NEGATIVE CHLAMYDIA, TMA (test code = 26979) NEGATIVE GC AND CHLAMYDIA, AMPLIFIED, [id number] 00:00:00 Test Item Value Reference Range Interpretation Comments GONORRHEA, TMA (test code = 08888) NEGATIVE CHLAMYDIA, TMA (test code = 44710) NEGATIVE GC AND CHLAMYDIA, AMPLIFIED, [id number] 00:00:00 Test Item Value Reference Range Interpretation Comments GONORRHEA, TMA (test code = 51340) NEGATIVE CHLAMYDIA, TMA (test code = 03516) NEGATIVE GC AND CHLAMYDIA, AMPLIFIED, [id number] 00:00:00 Test Item Value Reference Range Interpretation Comments GONORRHEA, TMA (test code = 15272) NEGATIVE CHLAMYDIA, TMA (test code = 51133) NEGATIVE GC AND CHLAMYDIA, AMPLIFIED, [id number] 00:00:00 Test Item Value Reference Range Interpretation Comments GONORRHEA, TMA (test code = 96956) NEGATIVE CHLAMYDIA, TMA (test code = 18935) NEGATIVE COMPREHENSIVE METABOLIC [id number] 00:00:00 Test Item Value Reference Range Interpretation Comments GLUCOSE (test code = 2217) 127 MG/DL BUN (test code = 2208) 5 MG/DL CREATININE (test code = 2214) 0.58 MG/DL eGFR AMER. (test code 148 ML/MIN/1.73 = 06433) eGFR NON- AMER. (test 128 ML/MIN/1.73 code = 91625) CALC BUN/CREAT (test code = 9 RATIO [...] code = 2219) 18 U/L COMPREHENSIVE METABOLIC [id number] 00:00:00 Test Item Value Reference Range Interpretation Comments GLUCOSE (test code = 2217) 127 MG/DL BUN (test code = 2208) 5 MG/DL CREATININE (test code = 2214) 0.58 MG/DL eGFR AMER. (test code 148 ML/MIN/1.73 = 18416) eGFR NON- AMER. (test 128 ML/MIN/1.73 code = 44166) CALC BUN/CREAT (test code = 9 RATIO [...] (test code = 2219) 18 U/L LIPID [id number] 00:00:00 Test Item Value Reference Range Interpretation Comments CHOLESTEROL (test code = 2210) 186 MG/DL TRIGLYCERIDES (test code = 2232) 106 MG/DL HDL CHOLESTEROL (test code = 2220) 54 MG/DL CALC LDL CHOL (test code = 2237) 111 MG/DL RISK RATIO LDL/HDL (test code = 2.05 RATIO 2238) LIPID [id number] 00:00:00 Test Item Value Reference Range Interpretation Comments CHOLESTEROL (test code = 2210) 186 MG/DL TRIGLYCERIDES (test code = 2232) 106 MG/DL HDL CHOLESTEROL (test code = 2220) 54 MG/DL CALC LDL CHOL (test code = 2237) 111 MG/DL RISK RATIO LDL/HDL (test code = 2.05 RATIO 2238) COMPREHENSIVE METABOLIC [id number] 00:00:00 Test Item Value Reference Range Interpretation Comments GLUCOSE (test code = 2217) 127 MG/DL BUN (test code = 2208) 5 MG/DL CREATININE (test code = 2214) 0.58 MG/DL eGFR AMER. (test code 148 ML/MIN/1.73 = 32636) eGFR NON- AMER. (test 128 ML/MIN/1.73 code = 36306) CALC BUN/CREAT (test code = 9 RATIO [...] code = 2219) 18 U/L COMPREHENSIVE METABOLIC [id number] 00:00:00 Test Item Value Reference Range Interpretation Comments GLUCOSE (test code = 2217) 127 MG/DL BUN (test code = 2208) 5 MG/DL CREATININE (test code = 2214) 0.58 MG/DL eGFR AMER. (test code 148 ML/MIN/1.73 = 27042) eGFR NON- AMER. (test 128 ML/MIN/1.73 code = 80910) CALC BUN/CREAT (test code = 9 RATIO [...] A/G RATIO (test code = 1.1 RATIO 2233) BILIRUBIN, TOTAL (test code = 0.4 MG/DL 2206) ALKALINE PHOSPHATASE (test 83 U/L code = 2204) AST (test code = 2218) 21 U/L ALT (test code = 2219) 18 U/L COMPREHENSIVE METABOLIC [id number] 00:00:00 Test Item Value Reference Range Interpretation Comments GLUCOSE (test code = 2217) 127 MG/DL BUN (test code = 2208) 5 MG/DL CREATININE (test code = 2214) 0.58 MG/DL eGFR AMER. (test code 148 ML/MIN/1.73 = 42440) eGFR NON- AMER. (test 128 ML/MIN/1.73 code = 33249) CALC BUN/CREAT (test code = 9 RATIO [...] CALC GLOBULIN (test code = 3.8 G/DL 224) CALC A/G RATIO (test code = 1.1 RATIO 223) BILIRUBIN, TOTAL (test code = 0.4 MG/DL 2206) ALKALINE PHOSPHATASE (test 83 U/L code = 2204) AST (test code = 2218) 21 U/L ALT (test code = 2219) 18 U/L LIPID [id number] 00:00:00 Test Item Value Reference Range Interpretation Comments CHOLESTEROL (test code = 2210) 186 MG/DL TRIGLYCERIDES (test code = 2232) 106 MG/DL HDL CHOLESTEROL (test code = 2220) 54 MG/DL CALC LDL CHOL (test code = 2237) 111 MG/DL RISK RATIO LDL/HDL (test code = 2.05 RATIO 2238) LIPID [id number] 00:00:00 Test Item Value Reference Range Interpretation Comments CHOLESTEROL (test code = 2210) 186 MG/DL TRIGLYCERIDES (test code = 2232) 106 MG/DL HDL CHOLESTEROL (test code = 2220) 54 MG/DL CALC LDL CHOL (test code = 2237) 111 MG/DL RISK RATIO LDL/HDL (test code = 2.05 RATIO 2238) COMPREHENSIVE METABOLIC [id number] 00:00:00 Test Item Value Reference Range Interpretation Comments GLUCOSE (test code = 2217) 127 MG/DL BUN (test code = 2208) 5 MG/DL CREATININE (test code = 2214) 0.58 MG/DL eGFR AMER. (test code 148 ML/MIN/1.73 = 26202) eGFR NON- AMER. (test 128 ML/MIN/1.73 code = 26394) CALC BUN/CREAT (test code = 9 RATIO [...] BILIRUBIN, TOTAL (test code = 0.4 MG/DL 7) ALKALINE PHOSPHATASE (test 83 U/L code = 2204) AST (test code = 2218) 21 U/L ALT (test code = 2219) 18 U/L LIPID [id number] 00:00:00 Test Item Value Reference Range Interpretation Comments CHOLESTEROL (test code = 2210) 186 MG/DL TRIGLYCERIDES (test code = 2232) 106 MG/DL HDL CHOLESTEROL (test code = 2220) 54 MG/DL CALC LDL CHOL (test code = 2237) 111 MG/DL RISK RATIO LDL/HDL (test code = 2.05 RATIO 2238) LIPID [id number] 00:00:00 Test Item Value Reference Range Interpretation Comments CHOLESTEROL (test code = 2210) 186 MG/DL TRIGLYCERIDES (test code = 2232) 106 MG/DL HDL CHOLESTEROL (test code = 2220) 54 MG/DL CALC LDL CHOL (test code = 2237) 111 MG/DL RISK RATIO LDL/HDL (test code = 2.05 RATIO 2238) GC AND CHLAMYDIA, AMPLIFIED, [id number] 00:00:00 Test Item Value Reference Range Interpretation Comments GONORRHEA, TMA (test code = 97784) NEGATIVE CHLAMYDIA, TMA (test code = 21083) NEGATIVE GC AND CHLAMYDIA, AMPLIFIED, [id number] 00:00:00 Test Item Value Reference Range Interpretation Comments GONORRHEA, TMA (test code = 25382) NEGATIVE CHLAMYDIA, TMA (test code = 86844) NEGATIVE GC AND CHLAMYDIA, AMPLIFIED, [id number] 00:00:00 Test Item Value Reference Range Interpretation Comments GONORRHEA, TMA (test code = 71580) NEGATIVE CHLAMYDIA, TMA (test code = 56997) NEGATIVE GC AND CHLAMYDIA, AMPLIFIED, [id number] 00:00:00 Test Item Value Reference Range Interpretation Comments GONORRHEA, TMA (test code = 96091) NEGATIVE CHLAMYDIA, TMA (test code = 23543) NEGATIVE GC AND CHLAMYDIA, AMPLIFIED, [id number] 00:00:00 Test Item Value Reference Range Interpretation Comments GONORRHEA, TMA (test code = 25231) NEGATIVE CHLAMYDIA, TMA (test code = 42462) NEGATIVE GC AND CHLAMYDIA, AMPLIFIED, [id number] 00:00:00 Test Item Value Reference Range Interpretation Comments GONORRHEA, TMA (test code = 01071) NEGATIVE CHLAMYDIA, TMA (test code = 59722) NEGATIVE VAGINAL PATHOGENS DNA [id number] 00:00:00 Test Item Value Reference Range Interpretation Comments YOKO SPECIES (test code = 58977) POSITIVE G. VAGINALIS (test code = 86614) NEGATIVE T. VAGINALIS (test code = 64132) NEGATIVE VAGINAL PATHOGENS DNA [id number] 00:00:00 Test Item Value Reference Range Interpretation Comments YOKO SPECIES (test code = 93495) POSITIVE G. VAGINALIS (test code = 77722) NEGATIVE T. VAGINALIS (test code = 87143) NEGATIVE VAGINAL PATHOGENS DNA [id number] 00:00:00 Test Item Value Reference Range Interpretation Comments YOKO SPECIES (test code = 18800) POSITIVE G. VAGINALIS (test code = 51043) NEGATIVE T. VAGINALIS (test code = 81324) NEGATIVE VAGINAL PATHOGENS DNA [id number] 00:00:00 Test Item Value Reference Range Interpretation Comments YOKO SPECIES (test code = 06203) POSITIVE G. VAGINALIS (test code = 00671) NEGATIVE T. VAGINALIS (test code = 89396) NEGATIVE VAGINAL PATHOGENS DNA [id number] 00:00:00 Test Item Value Reference Range Interpretation Comments YOKO SPECIES (test code = 42461) POSITIVE G. VAGINALIS (test code = 86157) NEGATIVE T. VAGINALIS (test code = 59123) NEGATIVE VAGINAL PATHOGENS DNA [id number] 00:00:00 Test Item Value Reference Range Interpretation Comments YOKO SPECIES (test code = 65357) POSITIVE G. VAGINALIS (test code = 90944) NEGATIVE T. VAGINALIS (test code = 80473) NEGATIVE GC AND CHLAMYDIA, AMPLIFIED, [id number] 00:00:00 Test Item Value Reference Range Interpretation Comments GONORRHEA, TMA (test code = 32778) NEGATIVE CHLAMYDIA, TMA (test code = 52594) NEGATIVE GC AND CHLAMYDIA, AMPLIFIED, [id number] 00:00:00 Test Item Value Reference Range Interpretation Comments GONORRHEA, TMA (test code = 08186) NEGATIVE CHLAMYDIA, TMA (test code = 42601) NEGATIVE GC AND CHLAMYDIA, AMPLIFIED, [id number] 00:00:00 Test Item Value Reference Range Interpretation Comments GONORRHEA, TMA (test code = 93515) NEGATIVE CHLAMYDIA, TMA (test code = 03615) NEGATIVE GC AND CHLAMYDIA, AMPLIFIED, [id number] 00:00:00 Test Item Value Reference Range Interpretation Comments GONORRHEA, TMA (test code = 49184) NEGATIVE CHLAMYDIA, TMA (test code = 19734) NEGATIVE GC AND CHLAMYDIA, AMPLIFIED, [id number] 00:00:00 Test Item Value Reference Range Interpretation Comments GONORRHEA, TMA (test code = 95919) NEGATIVE CHLAMYDIA, TMA (test code = 15136) NEGATIVE GC AND CHLAMYDIA, AMPLIFIED, [id number] 00:00:00 Test Item Value Reference Range Interpretation Comments GONORRHEA, TMA (test code = 57347) NEGATIVE CHLAMYDIA, TMA (test code = 17599) NEGATIVE CULTURE, [id number] 00:00:00 Test Item Value Reference Range Interpretation Comments CULTURE, URINE (test SPECIMEN NUMBER: code = 06346) [id number] CULTURE, [id number] 00:00:00 Test Item Value Reference Range Interpretation Comments CULTURE, URINE (test SPECIMEN NUMBER: code = 88310) [id number] CULTURE, [id number] 00:00:00 Test Item Value Reference Range Interpretation Comments CULTURE, URINE (test SPECIMEN NUMBER: code = 60962) [id number] CULTURE, [id number] 00:00:00 Test Item Value Reference Range Interpretation Comments CULTURE, URINE (test SPECIMEN NUMBER: code = 00801) [id number] CULTURE, [id number] 00:00:00 Test Item Value Reference Range Interpretation Comments CULTURE, URINE (test SPECIMEN NUMBER: code = 51133) [id number] CULTURE, [id number] 00:00:00 Test Item Value Reference Range Interpretation Comments CULTURE, URINE (test SPECIMEN NUMBER: code = 99640) [id number] HEMOGLOBIN [id number] 00:00:00 Test Item Value Reference Range Interpretation Comments HEMOGLOBIN A1c (test code = 67811) 5.5 % HEMOGLOBIN [id number] 00:00:00 Test Item Value Reference Range Interpretation Comments HEMOGLOBIN A1c (test code = 57742) 5.5 % HEMOGLOBIN [id number] 00:00:00 Test Item Value Reference Range Interpretation Comments HEMOGLOBIN A1c (test code = 02627) 5.5 % CBC W/AUTO [id number] 00:00:00 Test Item Value Reference Range Interpretation [...] code = 1015) 310 K/UL CBC W/AUTO [id number] 00:00:00 Test Item Value Reference Range Interpretation [...] code = 1015) 310 K/UL CBC W/AUTO [id number] 00:00:00 Test Item Value Reference Range Interpretation [...] code = 1015) 310 K/UL COMPREHENSIVE METABOLIC [id number] 00:00:00 Test Item Value Reference Range Interpretation Comments GLUCOSE (test code = 2217) 73 MG/DL BUN (test code = 2208) 10 MG/DL CREATININE (test code = 2214) 0.51 MG/DL eGFR AMER. (test code 158 ML/MIN/1.73 = 64081) eGFR NON- AMER. (test 136 ML/MIN/1.73 code = 42795) CALCULATED BUN/CREAT (test 20 RATIO code = [...] code = 2219) 23 U/L COMPREHENSIVE METABOLIC [id number] 00:00:00 Test Item Value Reference Range Interpretation Comments GLUCOSE (test code = 2217) 73 MG/DL BUN (test code = 2208) 10 MG/DL CREATININE (test code = 2214) 0.51 MG/DL eGFR AMER. (test code 158 ML/MIN/1.73 = 95248) eGFR NON- AMER. (test 136 ML/MIN/1.73 code = 72795) CALCULATED BUN/CREAT (test 20 RATIO code = [...] (test code = 2219) 23 U/L LIPID [id number] 00:00:00 Test Item Value Reference Range Interpretation Comments CHOLESTEROL (test code = 2210) 167 MG/DL TRIGLYCERIDES (test code = 2232) 109 MG/DL HDL CHOLESTEROL (test code = 2220) 58 MG/DL CALCULATED LDL CHOL (test code = 87 MG/DL 2236) RISK RATIO LDL/HDL (test code = 1.50 RATIO 2238) LIPID [id number] 00:00:00 Test Item Value Reference Range Interpretation Comments CHOLESTEROL (test code = 2210) 167 MG/DL TRIGLYCERIDES (test code = 2232) 109 MG/DL HDL CHOLESTEROL (test code = 2220) 58 MG/DL CALCULATED LDL CHOL (test code = 87 MG/DL 7) RISK RATIO LDL/HDL (test code = 1.50 [...] (test code = 2821) 1.5 UIU/ML HEMOGLOBIN [id number] 00:00:00 Test Item Value Reference Range Interpretation Comments HEMOGLOBIN A1c (test code = 84287) 5.5 % HEMOGLOBIN [id number] 00:00:00 Test Item Value Reference Range Interpretation Comments HEMOGLOBIN A1c (test code = 87494) 5.5 % HEMOGLOBIN [id number] 00:00:00 Test Item Value Reference Range Interpretation Comments HEMOGLOBIN A1c (test code = 35805) 5.5 % HEMOGLOBIN [id number] 00:00:00 Test Item Value Reference Range Interpretation Comments HEMOGLOBIN A1c (test code = 76567) 5.5 % HEMOGLOBIN [id number] 00:00:00 Test Item Value Reference Range Interpretation Comments HEMOGLOBIN A1c (test code = 64199) 5.5 % CBC W/AUTO [id number] 00:00:00 Test Item Value Reference Range Interpretation [...] code = 1015) 310 K/UL CBC W/AUTO [id number] 00:00:00 Test Item Value Reference Range Interpretation [...] code = 1015) 310 K/UL CBC W/AUTO [id number] 00:00:00 Test Item Value Reference Range Interpretation [...] code = 1015) 310 K/UL COMPREHENSIVE METABOLIC [id number] 00:00:00 Test Item Value Reference Range Interpretation Comments GLUCOSE (test code = 2217) 73 MG/DL BUN (test code = 2208) 10 MG/DL CREATININE (test code = 2214) 0.51 MG/DL eGFR AMER. (test code 158 ML/MIN/1.73 = 52639) eGFR NON- AMER. (test 136 ML/MIN/1.73 code = 57333) CALCULATED BUN/CREAT (test 20 RATIO code = [...] = 0.4 MG/DL 2207) ALKALINE PHOSPHATASE (test 54 U/L code = 2204) SGOT (AST) (test code = 2218) 21 U/L SGPT (ALT) (test code = 2219) 23 U/L COMPREHENSIVE METABOLIC [id number] 00:00:00 Test Item Value Reference Range Interpretation Comments GLUCOSE (test code = 2217) 73 MG/DL BUN (test code = 2208) 10 MG/DL CREATININE (test code = 2214) 0.51 MG/DL eGFR AMER. (test code 158 ML/MIN/1.73 = 01614) eGFR NON- AMER. (test 136 ML/MIN/1.73 code = 47941) CALCULATED BUN/CREAT (test 20 RATIO code = [...] (test code = 2219) 23 U/L LIPID [id number] 00:00:00 Test Item Value Reference Range Interpretation Comments CHOLESTEROL (test code = 2210) 167 MG/DL TRIGLYCERIDES (test code = 2232) 109 MG/DL HDL CHOLESTEROL (test code = 2220) 58 MG/DL CALCULATED LDL CHOL (test code = 87 MG/DL 2236) RISK RATIO LDL/HDL (test code = 1.50 RATIO 2238) LIPID [id number] 00:00:00 Test Item Value Reference Range Interpretation [...] (test code = 2821) 1.5 UIU/ML HEMOGLOBIN [id number] 00:00:00 Test Item Value Reference Range Interpretation Comments HEMOGLOBIN A1c (test code = 58110) 5.5 % CBC W/AUTO [id number] 00:00:00 Test Item Value Reference Range Interpretation [...] code = 1015) 310 K/UL CBC W/AUTO [id number] 00:00:00 Test Item Value Reference Range Interpretation [...] code = 1015) 310 K/UL CBC W/AUTO [id number] 00:00:00 Test Item Value Reference Range Interpretation [...] code = 1015) 310 K/UL COMPREHENSIVE METABOLIC [id number] 00:00:00 Test Item Value Reference Range Interpretation Comments GLUCOSE (test code = 2217) 73 MG/DL BUN (test code = 2208) 10 MG/DL CREATININE (test code = 2214) 0.51 MG/DL eGFR AMER. (test code 158 ML/MIN/1.73 = 19609) eGFR NON- AMER. (test 136 ML/MIN/1.73 code = 72585) CALCULATED BUN/CREAT (test 20 RATIO code = [...] code = 2219) 23 U/L COMPREHENSIVE METABOLIC [id number] 00:00:00 Test Item Value Reference Range Interpretation Comments GLUCOSE (test code = 2217) 73 MG/DL BUN (test code = 2208) 10 MG/DL CREATININE (test code = 2214) 0.51 MG/DL eGFR AMER. (test code 158 ML/MIN/1.73 = 33566) eGFR NON- AMER. (test 136 ML/MIN/1.73 code = 07828) CALCULATED BUN/CREAT (test 20 RATIO code = [...] (test code = 2219) 23 U/L LIPID [id number] 00:00:00 Test Item Value Reference Range Interpretation Comments CHOLESTEROL (test code = 2210) 167 MG/DL TRIGLYCERIDES (test code = 2232) 109 MG/DL HDL CHOLESTEROL (test code = 2220) 58 MG/DL CALCULATED LDL CHOL (test code = 87 MG/DL 2236) RISK RATIO LDL/HDL (test code = 1.50 RATIO 2237) LIPID [id number] 00:00:00 Test Item Value Reference Range Interpretation Comments CHOLESTEROL (test code = 2210) 167 MG/DL TRIGLYCERIDES (test code = 2232) 109 MG/DL HDL CHOLESTEROL (test code = 2220) 58 MG/DL CALCULATED LDL CHOL (test code = 87 MG/DL 7) RISK RATIO LDL/HDL (test code = 1.50 [...]
[2022-10-13] MEDS ORDERED: LORAZEPAM 1 MG TABLET ONE (13:06)
--- NOTE | 2022-10-13 13:27 | RAD REPORT ---
EXAM DESCRIPTION: [facility] Single View10/13/2022 1:15 pm CLINICAL HISTORY: Chest pain COMPARISON: October 10, 2022 FINDINGS: The lungs appear clear of acute infiltrate. The heart is normal size IMPRESSION: No acute abnormalities displayed
--- NOTE | 2022-10-13 13:47 | EDPHYS ---
Physician Documentation [facility] Name: Taylor Rodriguez Age: 27 yrs Sex: Female : 1995 Arrival Date: 10/13/2022 Time: 12:30 Bed 26 Private MD: ED Physician Moses Bell HPI: 10/13 12:40 This 27 yrs old Black Female presents to ER via EMS with complaints of Anxiety. jh7 12:40 Onset: The symptoms/episode began/occurred acutely. Associated signs and symptoms:. jh7 12:40 24-year-old female reports having a panic attack at the [facility]. jh7 Reports that she takes hydroxyzine, but that she forgot it today. Reports that she suddenly started crying and then developed chest pain and shortness of breath during the panic attack. Reports improvement of symptoms now, but still feels anxious with some chest tightness.. Historical: - Allergies: 12:36 Naproxen; iw - PMHx: 12:36 Anxiety; Depression; Fibromyalgia; High Blood Pressure; Schizophrenia; iw - Immunization history:: Adult Immunizations. - Social history:: Smoking status: Patient denies any tobacco usage or history of. ROS: 12:40 Constitutional: Negative for fever, chills, and weight loss, Eyes: Negative for injury, jh7 pain, redness, and discharge, Neck: Negative for injury, pain, and swelling, Cardiovascular: Negative for chest pain, palpitations, and edema, Respiratory: Negative for shortness of breath, cough, wheezing, and pleuritic chest pain, Back: Negative for injury and pain, MS/Extremity: Negative for injury and deformity, Skin: Negative for injury, rash, and discoloration, Neuro: Negative for headache, weakness, numbness, tingling, and seizure. 12:40 Psych: Positive for anxiety, Negative for depression. 12:40 All other systems are negative. Exam: 12:40 Constitutional: This is a well developed, well nourished patient who is awake, alert, jh7 and in no acute distress. Head/Face: Normocephalic, atraumatic. Eyes: Pupils equal round and reactive to light, extra-ocular motions intact. Lids and lashes normal. Conjunctiva and sclera are non-icteric and not injected. Cornea within normal limits. Periorbital areas with no swelling, redness, or edema. Neck: Trachea midline, no thyromegaly or masses palpated, and no cervical lymphadenopathy. Supple, full range of motion without nuchal rigidity, or vertebral point tenderness. No Meningismus. Cardiovascular: Regular rate and rhythm with a normal S1 and S2. No gallops, murmurs, or rubs. Normal PMI, no JVD. No pulse deficits. Respiratory: Lungs have equal breath sounds bilaterally, clear to auscultation and percussion. No rales, rhonchi or wheezes noted. No increased work of breathing, no retractions or nasal flaring. Abdomen/GI: Soft, non-tender, with normal bowel sounds. No distension or tympany. No guarding or rebound. No evidence of tenderness throughout. Back: No spinal tenderness. No costovertebral tenderness. Full range of motion. Skin: Warm, dry with normal turgor. Normal color with no rashes, no lesions, and no evidence of cellulitis. MS/ Extremity: Pulses equal, no cyanosis. Neurovascular intact. Full, normal range of motion. Neuro: Awake and alert, GCS 15, oriented to person, place, time, and situation. Motor strength 5/5 in all extremities. Sensory grossly intact. Normal gait. Vital Signs: 12:35 BP 132 / 99; Pulse 87; Resp 19; Temp 97.6; Pulse Ox 98% on R/A; iw 13:10 BP 142 / 97; Pulse 86; Resp 20; Pulse Ox 100% on R/A; Pain 10/10; mb9 13:10 Weight 126.1 kg; Height 5 ft. 3 in. (160.02 cm); 9 13:59 BP 145 / 89; Pulse 88; Resp 18; Pulse Ox 100% ; mb9 13:10 Body Mass Index 49.24 (126.10 kg, 160.02 cm) [facility] MDM: 12:32 Patient medically screened. [facility] 13:45 Differential diagnosis: Panic attack, pneumonia, acute MT. Data reviewed: vital signs, [facility] nurses notes, EKG, radiologic studies, plain films. I considered the following discharge prescriptions or medication management in the emergency department Medications were administered in the Emergency Department. See MAR. Historians other than the Patient: Parent: mom. Counseling: I had a detailed discussion with the patient and/or guardian regarding: the historical points, exam findings, and any diagnostic results supporting the discharge/admit diagnosis, to return to the emergency department if symptoms worsen or persist or if there are any questions or concerns that arise at home. Response to treatment: the patient's symptoms have resolved after treatment. ED course: Refilled the patient's hydroxyzine used for anxiety. The patient states she felt much better after Ativan administration.. 10/13 12:39 Order name: Chest Single View XRAY [facility] 10/13 13:27 Order name: RAD; Complete Time: 13:41 EDMS 10/13 12:39 Order name: EKG - Nurse/Tech; Complete Time: 13:03 [facility] EC:40 Rate is 87 beats/min. Rhythm is regular. QRS [place] is Normal. PA interval is normal at [facility] 178 msec. QRS interval is normal at 88 msec. QT interval is normal at 366 msec. No Q waves. T waves are Normal. No ST changes noted. Clinical impression: NSR w/ Non-specific ST/T Changes. Administered Medications: 13:07 Drug: Ativan (LORazepam) 1 mg Route: PO; mb9 Disposition: 18:55 Co-signature as Attending Physician, Moses Bell MD I reviewed the patient's care rn provided by the Advanced Practice Provider and agree with the diagnosis and treatment plan. Disposition Summary: 10/13/22 13:47 Discharge Ordered Location: Home [facility] Problem: new [facility] Symptoms: have improved [facility] Condition: Stable [facility] Diagnosis - Generalized anxiety disorder [facility] Followup: [facility] - With: Private Physician - When: 2 - 3 days - Reason: Recheck today's complaints Discharge Instructions: - Discharge Summary Sheet [facility] - Panic Attack [facility] - Generalized Anxiety Disorder, Adult [facility] - Managing Anxiety, Adult [facility] Forms: - Medication Reconciliation Form [facility] - Thank You Letter [facility] Prescriptions: - Hydroxyzine HCl 50 mg Oral Tablet - take 1 tablet by ORAL route every 8 hours As needed; 20 tablet; Refills: 0, 7 Product Selection Permitted Signatures: Dispatcher [employer] Yumiko Quinonez RN RN iw Nieto, Roman, MD MD rn Hadash, Jennifer, DOCUMENT MANAGEMENT TECHNICIAN DOCUMENT MANAGEMENT TECHNICIAN [facility] Marlene Bo RN RN mb9 Corrections: (The following items were deleted from the chart) 15:28 12:40 Onset: The symptoms/episode began/occurred acutely, jh7 jh7
--- NOTE | 2022-10-13 13:47 | ER ---
Nurse's Notes [facility] Name: Taylor Rodriguez Age: 27 yrs Sex: Female : 1995 Arrival Date: 10/13/2022 Time: 12:30 Bed 26 Private MD: Diagnosis: Generalized anxiety disorder Presentation: 10/13 12:35 Chief complaint: EMS states: pt had an anxiety attack while at the clinic for a follow iw up appt , states she gets attacks randomly and last episode was Thursday, she was seen here. Coronavirus screen: At this time, the client does not indicate any symptoms associated with coronavirus-19. Ebola Screen: Patient negative for fever greater than or equal to 101.5 degrees Fahrenheit, and additional compatible Ebola Virus Disease symptoms Patient denies exposure to infectious person. Patient denies travel to an Ebola-affected area in the 21 days before illness onset. No symptoms or risks identified at this time. Initial Sepsis Screen: Does the patient meet any 2 criteria? No. Patient's initial sepsis screen is negative. Does the patient have a suspected source of infection? No. Patient's initial sepsis screen is negative. Risk Assessment: Do you want to hurt yourself or someone else? Patient reports no desire to harm self or others. Onset of symptoms was October 13, 2022. 12:35 Method Of Arrival: EMS: [facility] iw 12:35 Acuity: MILAN 3 iw 12:36 Care prior to arrival: Medication(s) given: Ativan 2mg IM. iw Historical: - Allergies: 12:36 Naproxen; iw - PMHx: 12:36 Anxiety; Depression; Fibromyalgia; High Blood Pressure; Schizophrenia; iw - Immunization history:: Adult Immunizations. - Social history:: Smoking status: Patient denies any tobacco usage or history of. Screenin:07 [facility] ED Fall Risk Assessment (Adult) History of falling in the last 3 months, mb9 including since admission No falls in past 3 months (0 pts) Confusion or Disorientation No (0 pts) Intoxicated or Sedated No (0 pts) Impaired Gait Yes (1 pt) Mobility Assist Device Used Yes (1 pt) Altered Elimination No (0 pt) Score/Fall Risk Level 0 - 2 = Low Risk Oriented to surroundings, Maintained a safe environment, Educated pt \\T\\ family on fall prevention, incl call for assistance when getting out of bed. Abuse screen: Denies threats or abuse. Nutritional screening: No deficits noted. Tuberculosis screening: No symptoms or risk factors identified. Assessment: 13:08 Reassessment: pt states "I had a anxiety attack today and I usually take a medicine as mb9 needed for it and it helps. I forgot it today. I have a lot going on in my life and I've been anxious like this for a while". General: Appears uncomfortable, Behavior is flat. Pain: Complains of pain in "whole body" Pain currently is 10 out of 10 on a pain scale. Neuro: Level of Consciousness is awake, alert, obeys commands, Oriented to person, place, time, situation, Appropriate for age. Cardiovascular: Rhythm is regular. Respiratory: Airway is patent Respiratory effort is even, unlabored, Respiratory pattern is regular, symmetrical. GI: Abdomen is round non-distended. : No signs and/or symptoms were reported regarding the genitourinary system. EENT: No signs and/or symptoms were reported regarding the EENT system. Derm: Skin is pink, warm \\T\\ dry. Musculoskeletal: Reports "I can't move my body because I'm in so much pain". 13:25 Reassessment: pts mother at bedside. Pt states "my anxiety feels better. I feel like mb9 the medicine you gave me is working". 13:59 Reassessment: Patient and/or family updated on plan of care and expected duration. Pain mb9 level reassessed. Patient is alert, oriented x 3, equal unlabored respirations, skin warm/dry/pink. Patient states feeling better. Patient states symptoms have improved. Vital Signs: 12:35 BP 132 / 99; Pulse 87; Resp 19; Temp 97.6; Pulse Ox 98% on R/A; iw 13:10 BP 142 / 97; Pulse 86; Resp 20; Pulse Ox 100% on R/A; Pain 10/10; mb9 13:10 Weight 126.1 kg; Height 5 ft. 3 in. (160.02 cm); mb9 13:59 BP 145 / 89; Pulse 88; Resp 18; Pulse Ox 100% ; mb9 13:10 Body Mass Index 49.24 (126.10 kg, 160.02 cm) mb9 ED Course: 12:30 Patient arrived in ED. mb9 12:32 [facility] 7 12:32 Moses Bell MD is Attending Physician. 7 12:36 Triage completed. iw 12:36 Arm band placed on. iw 12:36 Placed in gown. Bed in low position. Call light in reach. Side rails up X 1. Client mb9 placed on continuous cardiac and pulse oximetry monitoring. NIBP monitoring applied. color television console monitor on. 12:55 Marlene Bo, RN is Primary Nurse. mb9 13:03 EKG done, by ED staff, reviewed by Mya EDWARDS. mb9 13:10 No provider procedures requiring assistance completed. Patient did not have IV access mb9 during this emergency room visit. Administered Medications: 13:07 Drug: Ativan (LORazepam) 1 mg Route: PO; mb9 Medication: 13:10 VIS not applicable for this client. mb9 Outcome: 13:47 Discharge ordered by . [facility] 14:00 Discharged to home via wheelchair. mb9 14:00 Condition: stable 14:00 Discharge instructions given to patient, Instructed on discharge instructions, Demonstrated understanding of instructions, follow-up care, medications, Prescriptions given X 1. 14:00 Patient left the ED. mb9 Signatures: Yumiko Ellis RN Mya Rivas FNP FNP [facility] Marlene Bo, RN RN mb9
[2022-10-13 14:31] VITALS: TEMP 97.6
[2022-10-13 14:32] VITALS: O2SAT 100
[2022-10-13 14:33] VITALS: BP 145/89
--- NOTE | 2022-10-14 17:14 | EKG ---
Test Date: 2022-10-13 Test Time: 13:02:05 [employer] Supervisor: CARITO MEASUREMENT RESULTS: Intervals: Rate: 87 OH: 178 QRSD: 88 QT: 366 QTc: 440 [place]: P: 31 OH: 178 QRS: 14 T: -14 INTERPRETIVE STATEMENTS: Normal sinus rhythm T wave abnormality, consider anterior ischemia Abnormal ECG Compared to ECG 10/10/2022 12:36:05 Left ventricular hypertrophy no longer present T-wave abnormality still present Possible ischemia still present Electronically Signed On 10-14-22 17:09:57 [employer] by Parmjit Yepez
== END 2022-10-13 14:00 | disposition home or self-care (01) ==
LOC: ER 12:26
DX: F41.1 Generalized anxiety disorder (principal); Z88.5 Allergy status to narcotic agent
CPT/HCPCS: 71045; 93005

== ENCOUNTER 2022-11-07 17:11 | Emergency (ER) | payer OTHER ==
--- OUTSIDE RECORDS SUMMARY | 2022-11-07 17:22 | XMS REPORT | Continuity of Care Document ---
:1995 Author Organization [facility] t Address [address] [place] [address] Care Team Providers Name Role Phone Roman YOUNG, [facility] Primary Care Physician [phone] DARLIN VICK Attending Clinician Unavailable ROBYN GARY Attending Clinician Unavailable [id number] Attending Clinician Unavailable [id number] Attending Clinician Unavailable DAR_CHRISTINA Attending Clinician Unavailable ANNEMARIE GRAFF Attending Clinician Unavailable Alexandre Wick Attending Clinician SHEY BIANCHI Attending Clinician Unavailable Doctor Unassigned, [place] Attending Clinician Unavailable Shey Bianchi MD Attending Clinician ALEXANDRE DELGADO Attending Clinician Unavailable James Sosa MD Attending Clinician Albaro, Aries Rojas Attending Clinician Unavailable ILIANA LAMAR Attending Clinician Unavailable Annemarie Alexander Attending Clinician Dannie Botello MD Attending Clinician DANNIE BOTELLO Attending Clinician Unavailable DAR_CHRISTINA Admitting Clinician Unavailable ALEXANDRE DELGADO Admitting Clinician Unavailable Payers Payer Name Policy Type Policy Number Effective Date Expiration Date S dameon [employer] MP SILVER: 9 [id number] 2022 O 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 0-12 it y of 00:00: [place] [facility] Conversion Conversion Disease Active U [...] Naproxen Propensi Active Other Jelena ty to 01-06 reaction( Seybold adverse 00:00: s): - reaction [...] drug Codeine Propensi Active Jelena ty to 5- Seybold adverse 00:00: - reaction 00 Externa s l NO KNOWN Drug Active Univers ALLERGIE Class ity of S [facility] Social History Social Habit Start Date Stop Date Quantity Comments Source Exposure to Not sure University of SARS-CoV-2 [place] [facility] (event) Branch History of Cigarette Smoker Universi ty of tobacco use [facility] Branch History SDOH Jelena nolasco - Alcohol Frequency Externa l History RENUKA nolasco - Alcohol Std External Drinks History RENUKA nolasco - Alcohol Binge External Alcohol intake 2022-10-28 2022-10-28 Current drinker Beth Ibrahim - 00:00:00 00:00:00 of alcohol External (finding) Alcohol Comment 2022-09-09 2022-09-09 rare Jelena henlye - 00:00:00 00:00:00 External Tobacco use and 2022-09-09 2022-09-09 Smokeless tobacco Jc bangura Seybold - exposure 00:00:00 00:00:00 non-user External Tobacco Comment 2019-08-16 2019-08-16 Quit Universit y of 00:00:00 00:00:00 smoking/vaping [facility] this year Branch Sex Ass[birth year] At [birth year] F Jelena Malcolm ybold - 00:00:00 00:00:00 External Smoking Status Start Date Stop Date Source Never smoked tobacco Jelena Malcolmyb old - External Former smoker 2020-09-07 00:00:00 2020-09-07 00:00:00 [facility] Current some day 2019-10-24 00:00:00 [facility] smoker [facility] Branch Medications Ordered Filled Start Stop Current Ordering Indication Dosage Frequency Signature Comments Components Source Medication Medication Date Date Medication? Clinician (SIG) Name Name Trazodone Yes [id number] 100mg Take 100 Jelena HCl 100 MG 2-28 mg by Seybold oral Tablet 09:11: mouth at - 07 bedtime Externa l Cyanocobala Yes Take by Emaunel sey min 2-28 mouth Seybold (VITAMIN B 09:11: - 12 OR) 07 Externa l hydroCHLORO Yes TAKE ONE Jc bangura thiazide 2-23 (1) Seybold 12.5 MG 00:00: CAPSULE(S) - oral 00 BY MOUTH Externa Capsule ONCE A l DAY. Losartan Yes [id number] 1{tbl} Take 1 K elsey Potassium-H 2-10 tablet by Seemmy bold CTZ 50-12.5 00:00: mouth - MG oral 00 daily Externa Tablet l Meclizine Yes [id number] 25mg Q.[id number] Take 1 Jelena HCl 25 MG 2-10 [id number] tablet (25 Seybold oral Tablet 00:00: 3D mg total) - 00 by mouth 3 Externa times l daily as needed Propranolol Yes [id number] 10mg Take 1 Jelena HCl 10 MG 2-10 tablet (10 Seyb old oral Tablet 00:00: mg total) - 00 by mouth 3 Externa times l daily Losartan Yes [id number] 1{tbl} Take 1 K elsey Potassium-H 2-10 tablet by Lit romano CTZ 50-12.5 00:00: mouth - MG oral 00 daily Externa Tablet l Meclizine Yes [id number] 25mg Q.[id number] Take 1 Jelena HCl 25 MG 2-10 [id number] tablet (25 Seybold oral Tablet 00:00: 3D mg total) - 00 by mouth 3 Externa times l daily as needed Propranolol Yes [id number] 10mg Take 1 Jelena HCl 10 MG 2-10 tablet (10 Seyb old oral Tablet 00:00: mg total) - 00 by mouth 3 Externa times l daily Doxycycline Yes [id number] 100mg Take 1 Jelena Hyclate 100 -31 tablet Seybol d MG oral 00:00: (100 mg - Tablet 00 total) by Externa mouth 2 l times daily Doxycycline 2022- No [id number] 100mg Take 1 Jelena Hyclate 100 - 02-28 tablet Seybo ld MG oral 00:00: 00:00 (100 mg - Tablet 00 :00 total) by Externa mouth 2 l times daily Trulicity Yes [id number] .75mg Inject Jelena 0.75 1-28 0.75 mg Seybold MG/0.5ML 00:00: into the - subcutaneou 00 skin once Ext jonathan s Solution a week l Pen-injecto r Trulicity Yes [id number] .75mg Inject Jelena 0.75 1-28 0.75 mg Seybold MG/0.5ML 00:00: into the - subcutaneou 00 skin once Ext jonathan s Solution a week l Pen-injecto r Aripiprazol 2022- No Kelse y e 20 MG -24 09-25 Seybold oral Tablet 11:11: 00:00 - 39 :00 Externa l Aripiprazol 2022- No [id number] 10mg Take 10 mg Jelena e 10 MG 09-24-25 by mouth 2 Seybo ld oral Tablet 11:11: 00:00 times - 26 :00 daily Externa l Trazodone Yes [id number] 100mg Take 100 Jelena HCl 100 MG 1-25 mg by Seybold oral Tablet 10:31: mouth at - 22 bedtime Externa l Cyanocobala Yes Take by Emanuel sey min 1-25 mouth Seybold (VITAMIN B 10:31: - 12 OR) 22 Externa l Trazodone 0 Yes [id number] 100mg Take 100 Jelena HCl 100 MG 1-25 mg by Seybold oral Tablet 10:31: mouth at - 22 bedtime Externa l Cyanocobala Yes Take by Emanuel sey min 1-25 mouth Seybold (VITAMIN B 10:31: - 12 OR) 22 Externa l hydroCHLORO Yes [id number] 12.5mg Take 1 Jelena thiazide 1-25 capsule Seybold 12.5 MG 00:00: (12.5 mg - oral 00 total) by Externa Capsule mouth l daily Ondansetron Yes [id number] 4mg Q.10099991 Take 1 Jelena (ZOFRAN) 4 1-25 [id number] tablet (4 Seybold MG oral 00:00: 3D mg total) - TABLET 00 by mouth Externa DISPERSIBLE every 8 l hours as needed for nausea Tirzepatide Yes [id number] 2.5mg Inject 0.5 Jelena (Mounjaro) 1-25 mL (2.5 mg Sey bold 2.5 00:00: total) - MG/0.5ML 00 into the Externa subcutaneou skin once l s Solution a week Pen-injecto r Celecoxib Yes [id number] 200mg Take 1 Jelena (CeleBREX) 1-25 capsule Seybol d 200 MG oral 00:00: (200 mg - Capsule 00 total) by Externa mouth 2 l times daily Gabapentin Yes [id number] 100mg Take 1 Jelena 100 MG oral 1-25 capsule Seybo ld Capsule 00:00: (100 mg - 00 total) by Externa mouth 3 l times daily Ondansetron 0 Yes [id number] 4mg Q.[id number] Take 1 Jelena (ZOFRAN) 4 1-25 [id number] tablet (4 Seybold MG oral 00:00: 3D mg total) - TABLET 00 by mouth Externa DISPERSIBLE every 8 l hours as needed for nausea Celecoxib 2022-0 Yes [id number] 200mg Take 1 Jelena (CeleBREX) 1-25 capsule Seybol d 200 MG oral 00:00: (200 mg - Capsule 00 total) by Externa mouth 2 l times daily Gabapentin 2022-0 Yes [id number] 100mg Take 1 Jelena 100 MG oral 1-25 capsule Seybo ld Capsule 00:00: (100 mg - 00 total) by Externa mouth 3 l times daily Ondansetron 2022-0 Yes [id number] 4mg Q.[id number] Take 1 Jelena (ZOFRAN) 4 1-25 [id number] tablet (4 Seybold MG oral 00:00: 3D mg total) - TABLET 00 by mouth Externa DISPERSIBLE every 8 l hours as needed for nausea Celecoxib 2022-0 Yes [id number] 200mg Take 1 Jelena (CeleBREX) 1-25 capsule Seybol d 200 MG oral 00:00: (200 mg - Capsule 00 total) by Externa mouth 2 l times daily Gabapentin 2022-0 Yes [id number] 100mg Take 1 Jelena 100 MG oral 1-25 capsule Seybo ld Capsule 00:00: (100 mg - 00 total) by Externa mouth 3 l times daily hydroCHLORO 2022-0 2023- No [id number] 12.5mg Take 1 Jelena thiazide 1-25 02-10 [...] - s Implant 00 Externa l Docusate 3-0 Yes [id number] 100mg Take 1 Ke lsey Sodium 1-13 capsule Seybold (Colace) 00:00: (100 mg - 100 MG oral 00 total) by Ext jonathan Capsule mouth l daily Ferrous 0 Yes [id number] 325mg Take 1 Emanuel sey Sulfate 1-13 tablet Seybold (Iron) 325 00:00: (325 mg - (65 Fe) MG 00 total) by Exte rna oral Tablet mouth l daily (with breakfast) Docusate 0 Yes [id number] 100mg Take 1 Ke lsey Sodium 1-13 capsule Seybold (Colace) 00:00: (100 mg - 100 MG oral 00 total) by Ext jonathan Capsule mouth l daily Ferrous Yes [id number] 325mg Take 1 Emanuel sey Sulfate 1-13 tablet Seybold (Iron) 325 00:00: (325 mg - (65 Fe) MG 00 total) by Exte rna oral Tablet mouth l daily (with breakfast) Docusate Yes [id number] 100mg Take 1 Ke lsey Sodium 1-13 capsule Seybold (Colace) 00:00: (100 mg - 100 MG oral 00 total) by Ext jonathan Capsule mouth l daily Ferrous Yes [id number] 325mg Take 1 Emanuel sey Sulfate 1-13 tablet Seybold (Iron) 325 00:00: (325 mg - (65 Fe) MG 00 total) by Exte rna oral Tablet mouth l daily (with breakfast) Nitrofurant 2022- No [id number] 100mg Take 1 Jelena oin Monohyd 1-13 01-25 capsule Seyb old Macro 00:00: 00:00 (100 [...] times - 55 daily Externa l Cyanocobala 2023-0 Yes Take by Emanuel lit min 1-10 mouth Seybold (VITAMIN B 08:53: - 12 OR) 55 Externa l Dose 0 No Unknown 2-03 00:00: 00 Dose 2021-0 No Unknown 2-03 00:00: 00 Dose 2021-0 No Unknown 2-03 00:00: 00 Dose 2021-0 No Unknown 1-12 00:00: 00 Dose 2021-0 No Unknown 1-12 00:00: 00 Dose 2021-0 No Unknown 1-12 00:00: 00 Dose 2021-0 No Unknown 1-11 00:00: 00 Dose 2021-0 No Unknown 1- 00:00: 00 Dose 2021-0 No Unknown 1- 00:00: 00 Dose 2021-0 No Unknown 1- 00:00: 00 Dose 2021-0 No Unknown 1- 00:00: 00 Dose 2021-0 No Unknown 1-11 00:00: 00 LYRICA 150 2019-08 Yes [id number] Take 1 Univers mg capsule 2-21 capsule by ity of 00:00: mouth [place] 00 twice a Medical day for Branch neuropathi c pain as directed by physician. LYRICA 150 2019-08 Yes [id number] Take 1 Univers mg capsule 2-21 capsule by ity of 00:00: mouth [place] 00 twice a Medical day for Branch neuropathi c pain as directed by physician. LYRICA 150 2019-08 Yes [id number] Take 1 Univers mg capsule 2-21 capsule by ity of 00:00: mouth [place] 00 twice a Medical day for Branch neuropathi c pain as directed by physician. LYRICA 150 2019-08 Yes [id number] Take 1 Univers mg capsule 2-21 capsule by ity of 00:00: mouth [place] 00 twice a Medical day for Branch neuropathi c pain as directed by physician. LYRICA 150 2019-08 Yes [id number] Take 1 Univers mg capsule 2-21 capsule by ity of 00:00: mouth [place] 00 twice a Medical day for Branch neuropathi c pain as directed by physician. LYRICA 150 2019-08 Yes [id number] Take 1 Univers mg capsule 2-21 capsule by ity of 00:00: mouth [place] 00 twice a Medical day for Branch neuropathi c pain as directed by physician. LYRICA 150 2019-08 Yes [id number] Take 1 Univers mg capsule 2-21 capsule [...] times Medical daily. Branch ofloxacin 2020-0 Yes [id number] 5[drp] Place 5 Univers 0.3 % otic - 14666 Drops in ity of drops 00:00: both ears [place] 00 3 (three) Medical times Branch daily. ofloxacin 2020-0 Yes [id number] 5[drp] Place 5 Univers 0.3 % otic 9-17 [id number] Drops in ity of drops 00:00: both ears [place] 00 3 (three) Medical times Branch daily. ofloxacin 2020-0 Yes [id number] 5[drp] Place 5 Univers 0.3 % otic 9-17 [id number] Drops in ity of drops 00:00: both ears [place] 00 3 (three) Medical times Branch daily. ofloxacin 2020-0 Yes [id number] 5[drp] Place 5 Univers 0.3 % otic 9-17 [id number] Drops in ity of drops 00:00: both ears [place] 00 3 (three) Medical times Branch daily. ofloxacin 2020-0 Yes [id number] 5[drp] Place 5 Univers 0.3 % otic 9-17 98531 Drops in ity of drops 00:00: both ears [place] 00 3 (three) Medical times Branch daily. ofloxacin 2020-0 Yes [id number] 5[drp] Place 5 Univers 0.3 % otic 9-17 [id number] Drops in ity of drops 00:00: both ears [place] 00 3 (three) Medical times Branch daily. ofloxacin 2020-0 Yes [id number] 5[drp] Place 5 Univers 0.3 % otic 9-17 [id number] Drops in ity of drops 00:00: both ears [place] 00 3 (three) Medical times Branch daily. ofloxacin 2020-0 Yes [id number] 5[drp] Place 5 Univers 0.3 % otic 9-17 [id number] Drops in ity of drops 00:00: both ears [place] 00 3 (three) Medical times Branch daily. ofloxacin 2020-0 Yes [id number] 5[drp] Place 5 Univers 0.3 % otic 9-17 [id number] Drops in ity of drops 00:00: both ears [place] 00 3 (three) Medical times Branch daily. ofloxacin 2020-0 Yes [id number] 5[drp] Place 5 Univers 0.3 % otic 9-17 [id number] Drops in ity of drops 00:00: both ears [place] 00 3 (three) Medical times Branch daily. ofloxacin 2020-0 Yes [id number] 5[drp] Place 5 Univers 0.3 % otic 9-17 11020 Drops in ity of drops 00:00: both ears [place] 00 3 (three) Medical times Branch daily. ofloxacin 2020-0 Yes [id number] 5[drp] Place 5 Univers 0.3 % otic 9-17 [id number] Drops in ity of drops 00:00: both ears [place] 00 3 (three) Medical times Branch daily. ofloxacin 2020-0 Yes [id number] 5[drp] Place 5 Univers 0.3 % otic 9-17 [id number] Drops in ity of drops 00:00: both ears [place] 00 3 (three) Medical times Branch daily. ofloxacin 2020-0 Yes [id number] 5[drp] Place 5 Univers 0.3 % otic 9-17 [id number] Drops in ity of drops 00:00: both ears [place] 00 3 (three) Medical times Branch daily. ofloxacin 2020-0 Yes [id number] 5[drp] Place 5 Univers 0.3 % otic 9-17 [id number] Drops in ity of drops 00:00: both [...] [id number] 1{tbl} Take 1 U nivers en-codeine -17 05-25 tablet by ity of (TYLENOL-CO 00:00: 04:59 [...] Indication s: acute pain metoprolol 2020-0 Yes [id number] 50mg Take 1 Un nneka succinate 7-09 tablet by ity o f XL 50 mg 24 00:00: mouth [place] hr tablet 00 daily. Medical Branch hydroCHLORO 2019-0 Yes [id number] 25mg Take 1 Univers thiazide 25 7-09 tablet by ity of mg tablet 00:00: mouth [place] 00 daily. Medical Branch baclofen 10 2020-0 Yes [id number] 10mg Take 1 Univers mg tablet 7- [id number] tablet by ity of 00:00: mouth 3 [place] 00 (three) Medical times Branch daily as needed for Pain (scale 4-6). metoprolol 2020-0 Yes [id number] 50mg Take 1 Un nneka succinate 7-09 tablet by ity o f XL 50 mg 24 00:00: mouth [place] hr tablet 00 daily. Medical Branch hydroCHLORO 2020-0 Yes [id number] 25mg Take 1 Univers thiazide 25 7-09 tablet by ity of mg tablet 00:00: mouth [place] 00 daily. Medical Branch baclofen 10 2020-0 Yes [id number] 10mg Take 1 Univers mg tablet 03-08 [id number] tablet by ity of 00:00: mouth 3 [place] 00 (three) Medical times Branch daily as needed for Pain (scale 4-6). metoprolol 2020-0 Yes [id number] 50mg Take 1 Un nneka succinate 7-09 tablet by ity o f XL 50 mg 24 00:00: mouth [place] hr tablet 00 daily. Medical Branch hydroCHLORO 2020-0 Yes [id number] 25mg Take 1 Univers thiazide 25 7-09 tablet by ity of mg tablet 00:00: mouth [place] 00 daily. Medical Branch baclofen 10 2020-0 Yes [id number] 10mg Take 1 Univers mg tablet 03-08 [id number] tablet by ity of 00:00: mouth 3 [place] 00 (three) Medical times Branch daily as needed for Pain (scale 4-6). metoprolol 2020-0 Yes [id number] 50mg Take 1 Un nneka succinate 7-09 tablet by ity o f XL 50 mg 24 00:00: mouth [place] hr tablet 00 daily. Medical Branch hydroCHLORO 2020-0 Yes [id number] 25mg Take 1 Univers thiazide 25 7-09 tablet by ity of mg tablet 00:00: mouth [place] 00 daily. Medical Branch baclofen 10 2020-0 Yes [id number] 10mg Take 1 Univers mg tablet 7- [id number] tablet by ity of 00:00: mouth 3 [place] 00 (three) Medical times Branch daily as needed for Pain (scale 4-6). metoprolol 2020-0 Yes [id number] 50mg Take 1 Un nneka succinate 7-09 tablet by ity o f XL 50 mg 24 00:00: mouth [place] hr tablet 00 daily. Medical Branch hydroCHLORO 2020-0 Yes [id number] 25mg Take 1 Univers thiazide 25 7-09 tablet by ity of mg tablet 00:00: mouth [place] 00 daily. Medical Branch baclofen 10 2020-0 Yes [id number] 10mg Take 1 Univers mg tablet 7- [id number] tablet by ity of 00:00: mouth 3 [place] 00 (three) Medical times Branch daily as needed for Pain (scale 4-6). metoprolol 2020-0 Yes [id number] 50mg Take 1 Un nneka succinate 7-09 tablet by ity o f XL 50 mg 24 00:00: mouth [place] hr tablet 00 daily. Medical Branch hydroCHLORO 2020-0 Yes [id number] 25mg Take 1 Univers thiazide 25 7-09 tablet by ity of mg tablet 00:00: mouth [place] 00 daily. Medical Branch baclofen 10 2019-0 Yes [id number] 10mg Take 1 Univers mg tablet 7 [id number] tablet by ity of 00:00: mouth 3 [place] 00 (three) Medical times Branch daily as needed for Pain (scale 4-6). metoprolol 2020-0 Yes [id number] 50mg Take 1 Un nneka succinate 7-09 tablet by ity o f XL 50 mg 24 00:00: mouth [place] hr tablet 00 daily. Medical Branch hydroCHLORO 2020-0 Yes [id number] 25mg Take 1 Univers thiazide 25 7-09 tablet by ity of mg tablet 00:00: mouth [place] 00 daily. Medical Branch baclofen 10 2019-0 Yes [id number] 10mg Take 1 Univers mg tablet 03-08 [id number] tablet by ity of 00:00: mouth 3 [place] 00 (three) Medical times Branch daily as needed for Pain (scale 4-6). metoprolol 2020-0 Yes [id number] 50mg Take 1 Un nneka succinate 7-09 tablet by ity o f XL 50 mg 24 00:00: mouth [place] hr tablet 00 daily. Medical Branch hydroCHLORO 2020-0 Yes [id number] 25mg Take 1 Univers thiazide 25 7-09 tablet by ity of mg tablet 00:00: mouth [place] 00 daily. Medical Branch baclofen 10 2020-0 Yes [id number] 10mg Take 1 Univers mg tablet 7- [id number] tablet by ity of 00:00: mouth 3 [place] 00 (three) Medical times Branch daily as needed for Pain (scale 4-6). metoprolol 2020-0 Yes [id number] 50mg Take 1 Un nneka succinate 7-09 tablet by ity o f XL 50 mg 24 00:00: mouth [place] hr tablet 00 daily. Medical Branch hydroCHLORO 2020-0 Yes [id number] 25mg Take 1 Univers thiazide 25 7-09 tablet by ity of mg tablet 00:00: mouth [place] 00 daily. Medical Branch baclofen 10 2020-0 Yes [id number] 10mg Take 1 Univers mg tablet 03-08 [id number] tablet by ity of 00:00: mouth 3 [place] 00 (three) Medical times Branch daily as needed for Pain (scale 4-6). metoprolol 2020-0 Yes [id number] 50mg Take 1 Un nneka succinate 7-09 tablet by ity o f XL 50 mg 24 00:00: mouth [place] hr tablet 00 daily. Medical Branch hydroCHLORO 2020-0 Yes [id number] 25mg Take 1 Univers thiazide 25 7-09 tablet by ity of mg tablet 00:00: mouth [place] 00 daily. Medical Branch baclofen 10 2020-0 Yes [id number] 10mg Take 1 Univers mg tablet 03-08 [id number] tablet by ity of 00:00: mouth 3 [place] 00 (three) Medical times Branch daily as needed for Pain (scale 4-6). metoprolol 2020-0 Yes [id number] 50mg Take 1 Un nneka succinate 7-09 tablet by ity o f XL 50 mg 24 00:00: mouth [place] hr tablet 00 daily. Medical Branch hydroCHLORO 2020-0 Yes [id number] 25mg Take 1 Univers thiazide 25 7-09 tablet by ity of mg tablet 00:00: mouth [place] 00 daily. Medical Branch baclofen 10 2020-0 Yes [id number] 10mg Take 1 Univers mg tablet - [id number] tablet by ity of 00:00: mouth 3 [place] 00 (three) Medical times Branch daily as needed for Pain (scale 4-6). metoprolol 2020-0 Yes [id number] 50mg Take 1 Un nneka succinate 7-09 tablet by ity o f XL 50 mg 24 00:00: mouth [place] hr tablet 00 daily. Medical Branch hydroCHLORO 2020-0 Yes [id number] 25mg Take 1 Univers thiazide 25 7-09 tablet by ity of mg tablet 00:00: mouth [place] 00 daily. Medical Branch baclofen 10 2020-0 Yes [id number] 10mg Take 1 Univers mg tablet 7- [id number] tablet by ity of 00:00: mouth 3 [place] 00 (three) Medical times Branch daily as needed for Pain (scale 4-6). metoprolol 2020-0 Yes [id number] 50mg Take 1 Un nneka succinate 7-09 tablet by ity o f XL 50 mg 24 00:00: mouth [place] hr tablet 00 daily. Medical Branch hydroCHLORO 2020-0 Yes [id number] 25mg Take 1 Univers thiazide 25 7-09 tablet by ity of mg tablet 00:00: mouth [place] 00 daily. Medical Branch baclofen 10 2019-0 Yes [id number] 10mg Take 1 Univers mg tablet 03-08 [id number] tablet by ity of 00:00: mouth 3 [place] 00 (three) Medical times Branch daily as needed for Pain (scale 4-6). metoprolol 2020-0 Yes [id number] 50mg Take 1 Un nneka succinate 7-09 tablet by ity o f XL 50 mg 24 00:00: mouth [place] hr tablet 00 daily. Medical Branch hydroCHLORO 2020-0 Yes [id number] 25mg Take 1 Univers thiazide 25 7-09 tablet by ity of mg tablet 00:00: mouth [place] 00 daily. Medical Branch baclofen 10 2020-0 Yes [id number] 10mg Take 1 Univers mg tablet 03-08 [id number] tablet by ity of 00:00: mouth 3 [place] 00 (three) Medical times Branch daily as needed for Pain (scale 4-6). metoprolol 2020-0 Yes [id number] 50mg Take 1 Un nneka succinate 7-09 tablet by ity o f XL 50 mg 24 00:00: mouth [place] hr tablet 00 daily. Medical Branch hydroCHLORO 2020-0 Yes [id number] 25mg Take 1 Univers thiazide 25 7-09 tablet by ity of mg tablet 00:00: mouth [place] 00 daily. Medical Branch baclofen 10 2020-0 Yes [id number] 10mg Take 1 Univers mg tablet 03-08 [id number] tablet by ity of 00:00: mouth 3 [place] 00 (three) Medical times Branch daily as needed for Pain (scale 4-6). metoprolol 2020-0 Yes [id number] 50mg Take 1 Un nneka succinate 7-09 tablet by ity o f XL 50 mg 24 00:00: mouth [place] hr tablet 00 daily. Medical Branch hydroCHLORO 2020-0 Yes [id number] 25mg Take 1 Univers thiazide 25 7-09 tablet by ity of mg tablet 00:00: mouth [place] 00 daily. Medical Branch baclofen 10 2019-0 Yes [id number] 10mg Take 1 Univers mg tablet 7- [id number] tablet by ity of 00:00: mouth 3 [place] 00 (three) Medical times Branch daily as needed for Pain (scale 4-6). metoprolol 2020-0 Yes [id number] 50mg Take 1 Un nneka succinate 7-09 tablet by ity o f XL 50 mg 24 00:00: mouth [place] hr tablet 00 daily. Medical Branch hydroCHLORO 2020-0 Yes [id number] 25mg Take 1 Univers thiazide 25 7-09 tablet by ity of mg tablet 00:00: mouth [place] 00 daily. Medical Branch baclofen 10 2019-0 Yes [id number] 10mg Take 1 Univers mg tablet 7 [id number] tablet by ity of 00:00: mouth 3 [place] 00 (three) Medical times Branch daily as needed for Pain (scale 4-6). metoprolol 2020-0 Yes [id number] 50mg Take 1 Un nneka succinate 7-09 tablet by ity o f XL 50 mg 24 00:00: mouth [place] hr tablet 00 daily. Medical Branch hydroCHLORO 2020-0 Yes [id number] 25mg Take 1 Univers thiazide 25 7-09 tablet by ity of mg tablet 00:00: mouth [place] 00 daily. Medical Branch baclofen 10 2019-0 Yes [id number] 10mg Take 1 Univers mg tablet 7- [id number] tablet by ity of 00:00: mouth 3 [place] 00 (three) Medical times Branch daily as needed for Pain (scale 4-6). metoprolol 2020-0 Yes [id number] 50mg Take 1 Un nneka succinate 7-09 tablet by ity o f XL 50 mg 24 00:00: mouth [place] hr tablet 00 daily. Medical Branch hydroCHLORO 2020-0 Yes [id number] 25mg Take 1 Univers thiazide 25 7-09 tablet by ity of mg tablet 00:00: mouth [place] 00 daily. Medical Branch baclofen 10 2019-0 Yes [id number] 10mg Take 1 Univers mg tablet 03-08 [id number] tablet by ity of 00:00: mouth 3 [place] 00 (three) Medical times Branch daily as needed for Pain (scale 4-6). metoprolol 2020-0 Yes [id number] 50mg Take 1 Un nneka succinate 7-09 tablet by ity o f XL 50 mg 24 00:00: mouth [place] hr tablet 00 daily. Medical Branch hydroCHLORO 2020-0 Yes [id number] 25mg Take 1 Univers thiazide 25 7-09 tablet by ity of mg tablet 00:00: mouth [place] 00 daily. Medical Branch baclofen 10 2020-0 Yes [id number] 10mg Take 1 Univers mg tablet 03-08 [id number] tablet by ity of 00:00: mouth 3 [place] 00 (three) Medical times Branch daily as needed for Pain (scale 4-6). metoprolol 2020-0 Yes [id number] 50mg Take 1 Un nneka succinate 7-09 tablet by ity o f XL 50 mg 24 00:00: mouth [place] hr tablet 00 daily. Medical Branch hydroCHLORO 2020-0 Yes [id number] 25mg Take 1 Univers thiazide 25 7-09 tablet by ity of mg tablet 00:00: mouth [place] 00 daily. Medical Branch baclofen 10 2020-0 Yes [id number] 10mg Take 1 Univers mg tablet 03-08 [id number] tablet by ity of 00:00: mouth 3 [place] 00 (three) Medical times Branch daily as needed for Pain (scale 4-6). metoprolol 2020-0 Yes [id number] 50mg Take 1 Un nneka succinate 7-09 tablet by ity o f XL 50 mg 24 00:00: mouth [place] hr tablet 00 daily. [facility] hydroCHLORO 2020-0 Yes [id number] 25mg Take 1 [facility] thiazide 25 7-09 tablet by ity of mg tablet 00:00: mouth [place] 00 daily. [facility] baclofen 10 2020-0 Yes [id number] 10mg Take 1 [facility] mg tablet 7 [id number] tablet by ity of 00:00: mouth 3 [place] 00 (three) Medical times Branch daily as needed for Pain (scale 4-6). metoprolol 2020-0 Yes [id number] 50mg Take 1 Un nneka succinate 7-09 tablet by ity o f XL 50 mg 24 00:00: mouth [place] hr tablet 00 daily. [facility] hydroCHLORO 2020-0 Yes [id number] 25mg Take 1 [facility] thiazide 25 7-09 tablet by ity of mg tablet 00:00: mouth [place] 00 daily. [facility] baclofen 10 2020-0 Yes [id number] 10mg Take 1 [facility] mg tablet - [id number] tablet by ity of 00:00: mouth 3 [place] 00 (three) Medical times Branch daily as needed for Pain (scale 4-6). metoprolol 2020-0 Yes [id number] 50mg Take 1 Un nneka succinate 7-09 tablet by ity o f XL 50 mg 24 00:00: mouth [place] hr tablet 00 daily. [facility] hydroCHLORO 2020-0 Yes [id number] 25mg Take 1 [facility] thiazide 25 7-09 tablet by ity of mg tablet 00:00: mouth [place] 00 daily. [facility] baclofen 10 2020-0 Yes [id number] 10mg Take 1 [facility] mg tablet 7 [id number] tablet by ity of 00:00: mouth 3 [place] 00 (three) Medical times Branch daily as needed for Pain (scale 4-6). metoprolol 2020-0 Yes [id number] 50mg Take 1 Un nneka succinate 7-09 tablet by ity o f XL 50 mg 24 00:00: mouth [place] hr tablet 00 daily. [facility] hydroCHLORO 2020-0 Yes [id number] 25mg Take 1 [facility] thiazide 25 7-09 tablet by ity of mg tablet 00:00: mouth [place] 00 daily. [facility] baclofen 10 2020-0 Yes [id number] 10mg Take 1 [facility] mg tablet 03-08 [id number] tablet by ity of 00:00: mouth 3 [...] by ity of tablet 14:58: mouth at [place] 32 bedtime. [facility] benztropine 2020-0 Yes 1mg Take 1 mg U nivers 1 mg tablet 2-25 by mouth ity of 14:58: daily. [place] [address] [facility] DULOXETINE 2020-0 Yes 60mg Take 60 mg U nivers HCL 2-25 by mouth 3 ity of (CYMBALTA 14:58: (three) [place] ORAL) 32 times Medical daily. Branch VITAMIN B 2020-0 Yes Take by Unive rs COMPLEX 2-25 mouth. ity of ORAL 14:58: [place] [address] [facility] Branch traZODONE 2020-0 Yes 100mg Take 100 [facility] vers 100 mg 2-25 mg by ity of tablet 14:58: mouth at [place] [address] bedtime. [facility] benztropine 2020-0 Yes 1mg Take 1 mg U nivers 1 mg tablet 2-25 by mouth ity of 14:58: daily. [place] [address] [facility] DULOXETINE 2020-0 Yes 60mg Take 60 mg U nivers HCL 2-25 by mouth 3 ity of (CYMBALTA 14:58: (three) [place] ORAL) 32 times Medical daily. Branch VITAMIN B 2020-0 Yes Take by Unive rs COMPLEX 2-25 mouth. ity of ORAL 14:58: [place] [address] [facility] Branch traZODONE 2020-0 Yes 100mg Take 100 [facility] vers 100 mg 2-25 mg by ity of tablet 14:58: mouth at [place] [address] bedtime. [facility] benztropine 2020-0 Yes 1mg Take 1 mg U nivers 1 mg tablet 2-25 by mouth ity of 14:58: daily. [place] [address] [facility] DULOXETINE 2020-0 Yes 60mg Take 60 mg U nivers HCL 2-25 by mouth 3 ity of (CYMBALTA 14:58: (three) [place] ORAL) 32 times Medical daily. Branch VITAMIN B 2020-0 Yes Take by Unive rs COMPLEX 2-25 mouth. ity of ORAL 14:58: [place] [address] [facility] Branch traZODONE 2020-0 Yes 100mg Take 100 [facility] vers 100 mg 2-25 mg by ity of tablet 14:58: mouth at [place] [address] bedtime. [facility] benztropine 2020-0 Yes 1mg Take 1 mg U nivers 1 mg tablet 2-25 by mouth ity of 14:58: daily. [place] [address] [facility] DULOXETINE 2020-0 Yes 60mg Take 60 mg U nivers HCL 2-25 by mouth 3 ity of (CYMBALTA 14:58: (three) [place] ORAL) 32 times Medical daily. Branch VITAMIN B 2020-0 Yes Take by Unive rs COMPLEX 2-25 mouth. ity of ORAL 14:58: [place] [address] [facility] traZODONE 2020-0 Yes 100mg Take 100 [facility] vers 100 mg 2-25 mg by ity of tablet 14:58: mouth at [place] [address] bedtime. [facility] benztropine 2020-0 Yes 1mg Take 1 mg U nivers 1 mg tablet 2-25 by mouth ity of 14:58: daily. [place] [address] [facility] DULOXETINE 2020-0 Yes 60mg Take 60 mg U nivers HCL 2-25 by mouth 3 ity of (CYMBALTA 14:58: (three) [place] ORAL) 32 times Medical daily. Branch VITAMIN B 2020-0 Yes Take by Unive rs COMPLEX 2-25 mouth. ity of ORAL 14:58: [place] [address] [facility] traZODONE 2020-0 Yes 100mg Take 100 [facility] vers 100 mg 2-25 mg by ity of tablet 14:58: mouth at [place] [address] bedtime. [facility] benztropine 2020-0 Yes 1mg Take 1 mg U nivers 1 mg tablet 2-25 by mouth ity of 14:58: daily. [place] [address] [facility] DULOXETINE 2020-0 Yes 60mg Take 60 mg U nivers HCL 2-25 by mouth 3 ity of (CYMBALTA 14:58: (three) [place] ORAL) 32 times Medical daily. Branch VITAMIN B 2020-0 Yes Take by Unive rs COMPLEX 2-25 mouth. ity of ORAL 14:58: [place] [address] [facility] traZODONE 2020-0 Yes 100mg Take 100 [facility] vers 100 mg 2-25 mg by ity of tablet 14:58: mouth at [place] [address] bedtime. [facility] benztropine 2020-0 Yes 1mg Take 1 mg U nivers 1 mg tablet 2-25 by mouth ity of 14:58: daily. [place] [address] [facility] DULOXETINE 2020-0 Yes 60mg Take 60 mg U nivers HCL 2-25 by mouth 3 ity of (CYMBALTA 14:58: (three) [place] ORAL) 32 times Medical daily. Branch VITAMIN B 2020-0 Yes Take by Unive rs COMPLEX 2-25 mouth. ity of ORAL 14:58: [place] [address] [facility] traZODONE 2020-0 Yes 100mg Take 100 [facility] vers 100 mg 2-25 mg by ity of tablet 14:58: mouth at [place] [address] bedtime. [facility] benztropine 2020-0 Yes 1mg Take 1 mg U nivers 1 mg tablet 2-25 by mouth ity of 14:58: daily. [place] [address] [facility] DULOXETINE 2020-0 Yes 60mg Take 60 mg U nivers HCL 2-25 by mouth 3 ity of (CYMBALTA 14:58: (three) [place] ORAL) 32 times Medical daily. Branch VITAMIN B 2020-0 Yes Take by Unive rs COMPLEX 2-25 mouth. ity of ORAL 14:58: [place] [address] [facility] traZODONE 2020-0 Yes 100mg Take 100 [facility] vers 100 mg 2-25 mg by ity of tablet 14:58: mouth at [place] [address] bedtime. [facility] benztropine 2020-0 Yes 1mg Take 1 mg U nivers 1 mg tablet 2-25 by mouth ity of 14:58: daily. [place] [address] [facility] DULOXETINE 2020-0 Yes 60mg Take 60 mg U nivers HCL 2-25 by mouth 3 ity of (CYMBALTA 14:58: (three) [place] ORAL) 32 times Medical daily. Branch VITAMIN B 2020-0 Yes Take by Unive rs COMPLEX 2-25 mouth. ity of ORAL 14:58: [place] [address] [facility] Branch traZODONE 2020-0 Yes 100mg Take 100 [facility] vers 100 mg 2-25 mg by ity of tablet 14:58: mouth at [place] [address] bedtime. [facility] benztropine 2020-0 Yes 1mg Take 1 mg U nivers 1 mg tablet 2-25 by mouth ity of 14:58: daily. [place] [address] [facility] DULOXETINE 2020-0 Yes 60mg Take 60 mg U nivers HCL 2-25 by mouth 3 ity of (CYMBALTA 14:58: (three) [place] ORAL) 32 times Medical daily. Branch VITAMIN B 2020-0 Yes Take by Unive rs COMPLEX 2-25 mouth. ity of ORAL 14:58: [place] [address] [facility] Branch traZODONE 2020-0 Yes 100mg Take 100 [facility] vers 100 mg 2-25 mg by ity of tablet 14:58: mouth at [place] [address] bedtime. [facility] benztropine 2020-0 Yes 1mg Take 1 mg U nivers 1 mg tablet 2-25 by mouth ity of 14:58: daily. [place] [address] [facility] DULOXETINE 2020-0 Yes 60mg Take 60 mg U nivers HCL 2-25 by mouth 3 ity of (CYMBALTA 14:58: (three) [place] ORAL) 32 times Medical daily. Branch VITAMIN B 2020-0 Yes Take by Unive rs COMPLEX 2-25 mouth. ity of ORAL 14:58: [place] [address] [facility] traZODONE 2020-0 Yes 100mg Take 100 [facility] vers 100 mg 2-25 mg by ity of tablet 14:58: mouth at [place] [address] bedtime. [facility] benztropine 2020-0 Yes 1mg Take 1 mg U nivers 1 mg tablet 2-25 by mouth ity of 14:58: daily. [place] [address] [facility] DULOXETINE 2020-0 Yes 60mg Take 60 mg U nivers HCL 2-25 by mouth 3 ity of (CYMBALTA 14:58: (three) [place] ORAL) 32 times Medical daily. Branch VITAMIN B 2020-0 Yes Take by Unive rs COMPLEX 2-25 mouth. ity of ORAL 14:58: [place] [address] [facility] traZODONE 2020-0 Yes 100mg Take 100 [facility] vers 100 mg 2-25 mg by ity of tablet 14:58: mouth at [place] [address] bedtime. Medical Branch benztropine 2020-0 Yes 1mg Take 1 mg U nivers 1 mg tablet 2-25 by mouth ity of 14:58: daily. [place] [address] [facility] DULOXETINE 2020-0 Yes 60mg Take 60 mg U nivers HCL 2-25 by mouth 3 ity of (CYMBALTA 14:58: (three) [place] ORAL) 32 times Medical daily. Branch VITAMIN B 2020-0 Yes Take by Unive rs COMPLEX 2-25 mouth. ity of ORAL 14:58: [place] [address] [facility] traZODONE 2020-0 Yes 100mg Take 100 [facility] vers 100 mg 2-25 mg by ity of tablet 14:58: mouth at [place] [address] bedtime. [facility] benztropine 2020-0 Yes 1mg Take 1 mg U nivers 1 mg tablet 2-25 by mouth ity of 14:58: daily. [place] [address] [facility] DULOXETINE 2020-0 Yes 60mg Take 60 mg U nivers HCL 2-25 by mouth 3 ity of (CYMBALTA 14:58: (three) [place] ORAL) 32 times Medical daily. Branch VITAMIN B 2020-0 Yes Take by Unive rs COMPLEX 2-25 mouth. ity of ORAL 14:58: [place] [address] [facility] traZODONE 2020-0 Yes 100mg Take 100 [facility] vers 100 mg 2-25 mg by ity of tablet 14:58: mouth at [place] [address] bedtime. [facility] benztropine 2020-0 Yes 1mg Take 1 mg U nivers 1 mg tablet 2-25 by mouth ity of 14:58: daily. [place] [address] [facility] DULOXETINE 2020-0 Yes 60mg Take 60 mg U nivers HCL 2-25 by mouth 3 ity of (CYMBALTA 14:58: (three) [place] ORAL) 32 times Medical daily. Branch VITAMIN B 2020-0 Yes Take by Unive rs COMPLEX 2-25 mouth. ity of ORAL 14:58: [place] [address] [facility] traZODONE 2020-0 Yes 100mg Take 100 [facility] vers 100 mg 2-25 mg by ity of tablet 14:58: mouth at [place] [address] bedtime. [facility] benztropine 2020-0 Yes 1mg Take 1 mg U nivers 1 mg tablet 2-25 by mouth ity of 14:58: daily. [place] [address] [facility] DULOXETINE 2020-0 Yes 60mg Take 60 mg U nivers HCL 2-25 by mouth 3 ity of (CYMBALTA 14:58: (three) [place] ORAL) 32 times Medical daily. Branch VITAMIN B 2020-0 Yes Take by Unive rs COMPLEX 2-25 mouth. ity of ORAL 14:58: [place] [address] [facility] traZODONE 2020-0 Yes 100mg Take 100 [facility] vers 100 mg 2-25 mg by ity of tablet 14:58: mouth at [place] [address] bedtime. [facility] benztropine 2020-0 Yes 1mg Take 1 mg U nivers 1 mg tablet 2-25 by mouth ity of 14:58: daily. [place] [address] [facility] VITAMIN B 2020-0 Yes Take by Unive rs COMPLEX 2-25 mouth. ity of ORAL 14:58: [place] [address] [facility] traZODONE 2020-0 Yes 100mg Take 100 [facility] vers 100 mg 2-25 mg by ity of tablet 14:58: mouth at [place] [address] bedtime. [facility] benztropine 2020-0 Yes 1mg Take 1 mg U nivers 1 mg tablet 2-25 by mouth ity of 14:58: daily. [address] VITAMIN B 2020-0 Yes Take by Unive rs COMPLEX 2-25 mouth. ity of ORAL 14:58: [address] Branch traZODONE 2020-0 Yes 100mg Take 100 [facility] vers 100 mg 2-25 mg by ity of tablet 14:58: mouth at [place] [address] bedtime. [facility] benztropine 2020-0 Yes 1mg Take 1 mg U nivers 1 mg tablet 2-25 by mouth ity of 14:58: daily. [address] VITAMIN B 2020-0 Yes Take by Unive rs COMPLEX 2-25 mouth. ity of ORAL 14:58: [address] traZODONE 2020-0 Yes 100mg Take 100 [facility] vers 100 mg 2-25 mg by ity of tablet 14:58: mouth at [place] [address] bedtime. [facility] benztropine 2020-0 Yes 1mg Take 1 mg U nivers 1 mg tablet 2-25 by mouth ity of 14:58: daily. [address] VITAMIN B 2020-0 Yes Take by Unive rs COMPLEX 2-25 mouth. ity of ORAL 14:58: [address] traZODONE 2020-0 Yes 100mg Take 100 [facility] vers 100 mg 2-25 mg by ity of tablet 14:58: mouth at [place] [address] bedtime. [facility] benztropine 2020-0 Yes 1mg Take 1 mg U nivers 1 mg tablet 2-25 by mouth ity of 14:58: daily. [address] VITAMIN B 2020-0 Yes Take by Unive rs COMPLEX 2-25 mouth. ity of ORAL 14:58: [address] Branch traZODONE 2020-0 Yes 100mg Take 100 [facility] vers 100 mg 2-25 mg by ity of tablet 14:58: mouth at [place] [address] bedtime. Medical [facility] benztropine 2020-0 Yes 1mg Take 1 mg U nivers 1 mg tablet 2-25 by mouth ity of 14:58: daily. [address] VITAMIN B 2020-0 Yes Take by Unive rs COMPLEX 2-25 mouth. ity of ORAL 14:58: [address] traZODONE 2020-0 Yes 100mg Take 100 [facility] vers 100 mg 2-25 mg by ity of tablet 14:58: mouth at [place] [address] bedtime. [facility] benztropine 2020-0 Yes 1mg Take 1 mg U nivers 1 mg tablet 2-25 by mouth ity of 14:58: daily. [address] VITAMIN B 2020-0 Yes Take by Unive rs COMPLEX 2-25 mouth. ity of ORAL 14:58: [address] traZODONE 2020-0 Yes 100mg Take 100 [facility] vers 100 mg 2-25 mg by ity of tablet 14:58: mouth at [place] [address] bedtime. [facility] benztropine 2020-0 Yes 1mg Take 1 mg U nivers 1 mg tablet 2-25 by mouth ity of 14:58: daily. [address] VITAMIN B 2020-0 Yes Take by Unive rs COMPLEX 2-25 mouth. ity of ORAL 14:58: [address] traZODONE 2020-0 Yes 100mg Take 100 [facility] vers 100 mg 2-25 mg by ity of tablet 14:58: mouth at [place] [address] bedtime. [facility] benztropine 2020-0 Yes 1mg Take 1 mg U nivers 1 mg tablet 2-25 by mouth ity of 14:58: daily. [address] VITAMIN B 2020-0 Yes Take by Unive rs COMPLEX 2-25 mouth. ity of ORAL 14:58: [address] traZODONE 2020-0 Yes 100mg Take 100 [facility] vers 100 mg 2-25 mg by ity of tablet 14:58: mouth at [place] [address] bedtime. [facility] benztropine 2020-0 Yes 1mg Take 1 mg U nivers 1 mg tablet 2-25 by mouth ity of 14:58: daily. [address] VITAMIN B 2020-0 Yes Take by Unive rs COMPLEX 2-25 mouth. ity of ORAL 14:58: [address] traZODONE 2020-0 Yes 100mg Take 100 [facility] vers 100 mg 2-25 mg by ity of tablet 14:58: mouth at [place] [address] bedtime. [facility] benztropine 2020-0 Yes 1mg Take 1 mg U nivers 1 mg tablet 2-25 by mouth ity of 14:58: daily. [address] VITAMIN B 2020-0 Yes Take by Unive rs COMPLEX 2-25 mouth. ity of ORAL 14:58: [address] traZODONE 2020-0 Yes 100mg Take 100 [facility] vers 100 mg 2-25 mg by ity of tablet 14:58: mouth at [place] [address] bedtime. [facility] benztropine 2020-0 Yes 1mg Take 1 mg U nivers 1 mg tablet 2-25 by mouth ity of 14:58: daily. [address] VITAMIN B 2020-0 Yes Take by Unive rs COMPLEX 2-25 mouth. ity of ORAL 14:58: [address] traZODONE 2020-0 Yes 100mg Take 100 [facility] vers 100 mg 2-25 mg by ity of tablet 14:58: mouth at [place] [address] bedtime. [facility] Branch benztropine 2020-0 Yes 1mg Take 1 mg U nivers 1 mg tablet 2-25 by mouth ity of 14:58: daily. [address] VITAMIN B 2020-0 Yes Take by Unive rs COMPLEX 2-25 mouth. ity of ORAL 14:58: [address] traZODONE 2020-0 Yes 100mg Take 100 [facility] vers 100 mg 2-25 mg by ity of tablet 14:58: mouth at [place] [address] bedtime. [facility] Branch benztropine 2020-0 Yes 1mg Take 1 mg U nivers 1 mg tablet 2-25 by mouth ity of 14:58: daily. [address] VITAMIN B 2020-0 Yes Take by Unive rs COMPLEX 2-25 mouth. ity of ORAL 14:58: [address] traZODONE 2020-0 Yes 100mg Take 100 [facility] vers 100 mg 2-25 mg by ity of tablet 14:58: mouth at [place] [address] bedtime. [facility] benztropine 2020-0 Yes 1mg Take 1 mg U nivers 1 mg tablet 2-25 by mouth ity of 14:58: daily. [address] VITAMIN B 2020-0 Yes Take by Unive rs COMPLEX 2-25 mouth. ity of ORAL 14:58: [address] traZODONE 2020-0 Yes 100mg Take 100 Uni vers 100 mg 2-25 mg by ity of tablet 14:58: mouth at [place] [address] bedtime. [facility] benztropine 2020-0 Yes 1mg Take 1 mg U nivers 1 mg tablet 2-25 by mouth ity of 14:58: daily. [address] aripiprazol 2020-0 Yes 5mg Take 5 [...] 2-24 by mouth ity of 17:16: daily. [place] [address] [facility] Branch ARIPiprazol 2020-0 Yes 10mg Take [...] 2-24 by mouth ity of 17:16: daily. [place] [address] [facility] ARIPiprazol 2020-0 Yes 10mg Take [...] 2-24 by mouth ity of 17:16: daily. [place] [address] [facility] ARIPiprazol 2020-0 Yes 10mg Take [...] mouth at [place] 45 bedtime. [facility] Branch OLANZapine 2020-0 2020- [...] 26 :00 times Medical daily. Branch OLANZapine 2019- No 10mg Take 10 mg [facility] (ZYPREXA) 2-24 10-24 by mouth 2 ity of 10 mg 17:15: 00:00 (two) [place] tablet 26 :00 times Medical daily. Branch OLANZapine 2019- No 10mg Take 10 mg [facility] (ZYPREXA) 10-24-24 by mouth 2 ity of 10 mg 17:15: 00:00 (two) [place] tablet 26 :00 times Medical daily. Branch DULoxetine 2019- No Take 3 Univ [...] :00 daily. [facility] Branch metoprolol 2019-0 Yes [id number] 50mg Take 1 Un nneka succinate 2-24 tablet by ity o f XL 50 mg 24 00:00: mouth [place] hr tablet 00 daily. [facility] metoprolol 2019-0 Yes [id number] 50mg Take 1 Un [place]ke[place] succinate 2-24 tablet by ity o f XL 50 mg 24 00:00: mouth [place] hr tablet 00 daily. [facility] metoprolol 2019-0 Yes [id number] 50mg Take 1 Un nneka succinate 2-24 tablet by ity o f XL 50 mg 24 00:00: mouth [place] hr tablet 00 daily. [facility] Branch metoprolol 2019-0 Yes [id number] 50mg Take 1 Un nneka succinate 2-24 tablet by ity o f XL 50 mg 24 00:00: mouth [place] hr tablet 00 daily. [facility] Branch metoprolol 2019-0 Yes [id number] 50mg Take 1 Un nneka succinate 2-24 tablet by ity o f XL 50 mg 24 00:00: mouth [place] hr tablet 00 daily. [facility] Branch metoprolol 2020-0 Yes [id number] 50mg Take 1 Un nneka succinate 2-24 tablet by ity o f XL 50 mg 24 00:00: mouth [place] hr tablet 00 daily. [facility] Branch metoprolol 2019-0 Yes [id number] 50mg Take 1 Un nneka succinate 2-24 tablet by ity o f XL 50 mg 24 00:00: mouth [place] hr tablet 00 daily. [facility] metoprolol 2019-0 Yes [id number] 50mg Take 1 Un nneka succinate 2-24 tablet by ity o f XL 50 mg 24 00:00: mouth [place] hr tablet 00 daily. [facility] metoprolol 2019-0 Yes [id number] 50mg Take 1 Un nneka succinate 2-24 tablet by ity o f XL 50 mg 24 00:00: mouth [place] hr tablet 00 daily. [facility] Branch metoprolol 0 Yes [id number] 50mg Take 1 Un nneka succinate 2-24 tablet by ity o f XL 50 mg 24 00:00: mouth [place] hr tablet 00 daily. [facility] metoprolol 2019-0 2020- No [id number] 50mg Take 1 U nivers succinate 2-24 07-09 tablet by ity of XL 50 mg 24 00:00: 00:00 [place] hr tablet 00 :00 daily. [facility] metoprolol 0 2020- No [id number] 50mg Take 1 U nivers succinate 2-24 07-09 tablet by ity of XL 50 mg 24 00:00: 00:00 [place] hr tablet 00 :00 daily. [facility] Branch metoprolol 2019-0 2020- No [id number] 50mg Take 1 U nivers succinate 2-24 07-09 tablet by ity of XL 50 mg 24 00:00: 00:00 [place] hr tablet 00 :00 daily. [facility] metoprolol 0 2020- No [id number] 50mg Take 1 U nivers succinate 2-24 07-09 tablet by ity of XL 50 mg 24 00:00: 00:00 [place] hr tablet 00 :00 daily. [facility] hydroCHLORO 2019-0 Yes [id number] 25mg Take 1 [facility] thiazide 25 1-30 tablet by ity of mg tablet 00:00: mouth [place] 00 daily. [facility] Branch meloxicam 2019-0 Yes [id number] 15mg Take 1 U nivers 15 mg 1-30 tablet by ity of tablet 00:00: mouth [place] 00 daily. Medical Branch metoprolol 2020-0 Yes [id number] 25mg Take 1 Un nneka succinate 1-30 tablet by ity o f XL 25 mg 24 00:00: mouth [place] hr tablet 00 daily. Medical Branch pregabalin 2020-0 Yes [id number] 150mg Take 1 [facility] (LYRICA) 1-30 capsule by ity o f 150 mg 00:00: mouth 2 [place] capsule 00 (two) Medical times Branch daily. hydroCHLORO 2020-0 Yes [id number] 25mg Take 1 [facility] thiazide 25 1-30 tablet by ity of mg tablet 00:00: mouth [place] 00 daily. Medical Branch meloxicam 2020-0 Yes [id number] 15mg Take 1 U nivers 15 mg 1-30 tablet by ity of tablet 00:00: mouth [place] 00 daily. Medical Branch metoprolol 2020-0 Yes [id number] 25mg Take 1 Un nneka succinate 1-30 tablet by ity o f XL 25 mg 24 00:00: mouth [place] hr tablet 00 daily. Medical [facility] pregabalin 2020-0 Yes [id number] 150mg Take 1 [facility] (LYRICA) 1-30 capsule by ity o f 150 mg 00:00: mouth 2 [place] capsule 00 (two) Medical times Branch daily. hydroCHLORO 2020-0 Yes [id number] 25mg Take 1 [facility] thiazide 25 1-30 tablet by ity of mg tablet 00:00: mouth [place] 00 daily. Medical Branch meloxicam 2020-0 Yes [id number] 15mg Take 1 U nivers 15 mg 1-30 tablet by ity of tablet 00:00: mouth [place] 00 daily. Medical Branch pregabalin 2020-0 Yes [id number] 150mg Take 1 [facility] (LYRICA) 1-30 capsule by ity o f 150 mg 00:00: mouth 2 [place] capsule 00 (two) Medical times Branch daily. hydroCHLORO 2020-0 Yes [id number] 25mg Take 1 [facility] thiazide 25 1-30 tablet by ity of mg tablet 00:00: mouth [place] 00 daily. Medical Branch meloxicam 2020-0 Yes [id number] 15mg Take 1 U nivers 15 mg 1-30 tablet by ity of tablet 00:00: mouth [place] 00 daily. Medical Branch pregabalin 2020-0 Yes [id number] 150mg Take 1 [facility] (LYRICA) 1-30 capsule by ity o f 150 mg 00:00: mouth 2 [place] capsule 00 (two) Medical times Branch daily. hydroCHLORO 2020-0 Yes [id number] 25mg Take 1 [facility] thiazide 25 1-30 tablet by ity of mg tablet 00:00: mouth [place] 00 daily. Medical Branch meloxicam 2020-0 Yes [id number] 15mg Take 1 U nivers 15 mg 1-30 tablet by ity of tablet 00:00: mouth [place] 00 daily. Medical Branch pregabalin 2020-0 Yes [id number] 150mg Take 1 [facility] (LYRICA) 1-30 capsule by ity o f 150 mg 00:00: mouth 2 [place] capsule 00 (two) Medical times Branch daily. hydroCHLORO 2020-0 Yes [id number] 25mg Take 1 [facility] thiazide 25 1-30 tablet by ity of mg tablet 00:00: mouth [place] 00 daily. Medical Branch meloxicam 2020-0 Yes [id number] 15mg Take 1 U nivers 15 mg 1-30 tablet by ity of tablet 00:00: mouth [place] 00 daily. Medical Branch pregabalin 2020-0 Yes [id number] 150mg Take 1 [facility] (LYRICA) 1-30 capsule by ity o f 150 mg 00:00: mouth 2 [place] capsule 00 (two) Medical times Branch daily. hydroCHLORO 2020-0 Yes [id number] 25mg Take 1 [facility] thiazide 25 1-30 tablet by ity of mg tablet 00:00: mouth [place] 00 daily. Medical Branch meloxicam 2020-0 Yes [id number] 15mg Take 1 U nivers 15 mg 1-30 tablet by ity of tablet 00:00: mouth [place] 00 daily. Medical Branch pregabalin 2020-0 Yes [id number] 150mg Take 1 [facility] (LYRICA) 1-30 capsule by ity o f 150 mg 00:00: mouth 2 [place] capsule 00 (two) Medical times Branch daily. hydroCHLORO 2020-0 Yes [id number] 25mg Take 1 [facility] thiazide 25 1-30 tablet by ity of mg tablet 00:00: mouth [place] 00 daily. Medical Branch meloxicam 2020-0 Yes [id number] 15mg Take 1 U nivers 15 mg 1-30 tablet by ity of tablet 00:00: mouth [place] 00 daily. Medical Branch pregabalin 2020-0 Yes [id number] 150mg Take 1 [facility] (LYRICA) 1-30 capsule by ity o f 150 mg 00:00: mouth 2 [place] capsule 00 (two) Medical times Branch daily. hydroCHLORO 2020-0 Yes [id number] 25mg Take 1 [facility] thiazide 25 1-30 tablet by ity of mg tablet 00:00: mouth [place] 00 daily. Medical Branch meloxicam 2020-0 Yes [id number] 15mg Take 1 U nivers 15 mg 1-30 tablet by ity of tablet 00:00: mouth [place] 00 daily. Medical Branch pregabalin 2020-0 Yes [id number] 150mg Take 1 [facility] (LYRICA) 1-30 capsule by ity o f 150 mg 00:00: mouth 2 [place] capsule 00 (two) Medical times Branch daily. hydroCHLORO 2020-0 Yes [id number] 25mg Take 1 [facility] thiazide 25 1-30 tablet by ity of mg tablet 00:00: mouth [place] 00 daily. Medical Branch meloxicam 2020-0 Yes [id number] 15mg Take 1 U nivers 15 mg 1-30 tablet by ity of tablet 00:00: mouth [place] 00 daily. Medical Branch pregabalin 2020-0 Yes [id number] 150mg Take 1 [facility] (LYRICA) 1-30 capsule by ity o f 150 mg 00:00: mouth 2 [place] capsule 00 (two) Medical times Branch daily. hydroCHLORO 2020-0 Yes [id number] 25mg Take 1 [facility] thiazide 25 1-30 tablet by ity of mg tablet 00:00: mouth [place] 00 daily. Medical Branch meloxicam 2020-0 Yes [id number] 15mg Take 1 U nivers 15 mg 1-30 tablet by ity of tablet 00:00: mouth [place] 00 daily. Medical Branch pregabalin 2020-0 Yes [id number] 150mg Take 1 [facility] (LYRICA) 1-30 capsule by ity o f 150 mg 00:00: mouth 2 [place] capsule 00 (two) Medical times Branch daily. hydroCHLORO 2020-0 Yes [id number] 25mg Take 1 [facility] thiazide 25 1-30 tablet by ity of mg tablet 00:00: mouth [place] 00 daily. Medical Branch meloxicam 2020-0 Yes [id number] 15mg Take 1 U nivers 15 mg 1-30 tablet by ity of tablet 00:00: mouth [place] 00 daily. Medical Branch pregabalin 2020-0 Yes [id number] 150mg Take 1 [facility] (LYRICA) 1-30 capsule by ity o f 150 mg 00:00: mouth 2 [place] capsule 00 (two) Medical times Branch daily. meloxicam 2020-0 Yes [id number] 15mg Take 1 U nivers 15 mg 1-30 tablet by ity of tablet 00:00: mouth [place] 00 daily. Medical [facility] pregabalin 2020-0 Yes [id number] 150mg Take 1 [facility] (LYRICA) 1-30 capsule by ity o f 150 mg 00:00: mouth 2 [place] capsule 00 (two) Medical times Branch daily. meloxicam 2020-0 Yes [id number] 15mg Take 1 U nivers 15 mg 1-30 tablet by ity of tablet 00:00: mouth [place] 00 daily. Medical [facility] pregabalin 2020-0 Yes [id number] 150mg Take 1 [facility] (LYRICA) 1-30 capsule by ity o f 150 mg 00:00: mouth 2 [place] capsule 00 (two) Medical times Branch daily. meloxicam 2020-0 Yes [id number] 15mg Take 1 U nivers 15 mg 1-30 tablet by ity of tablet 00:00: mouth [place] 00 daily. Medical [facility] pregabalin 2020-0 Yes [id number] 150mg Take 1 [facility] (LYRICA) 1-30 capsule by ity o f 150 mg 00:00: mouth 2 [place] capsule 00 (two) Medical times Branch daily. meloxicam 2020-0 Yes [id number] 15mg Take 1 U nivers 15 mg 1-30 tablet by ity of tablet 00:00: mouth [place] 00 daily. Medical [facility] pregabalin 2020-0 Yes [id number] 150mg Take 1 [facility] (LYRICA) 1-30 capsule by ity o f 150 mg 00:00: mouth 2 [place] capsule 00 (two) Medical times Branch daily. meloxicam 2020-0 Yes [id number] 15mg Take 1 [facility] nivers 15 mg 1-30 tablet by ity of tablet 00:00: mouth [place] 00 daily. Medical [facility] pregabalin 2020-0 Yes [id number] 150mg Take 1 [facility] (LYRICA) 1-30 capsule by ity o f 150 mg 00:00: mouth 2 [place] capsule 00 (two) Medical times Branch daily. meloxicam 2020-0 Yes [id number] 15mg Take 1 U nivers 15 mg 1-30 tablet by ity of tablet 00:00: mouth [place] 00 daily. Medical [facility] pregabalin 2020-0 Yes [id number] 150mg Take 1 [facility] (LYRICA) 1-30 capsule by ity o f 150 mg 00:00: mouth 2 [place] capsule 00 (two) Medical times Branch daily. meloxicam 2020-0 Yes [id number] 15mg Take 1 U nivers 15 mg 1-30 tablet by ity of tablet 00:00: mouth [place] 00 daily. Medical [facility] pregabalin 2020-0 Yes [id number] 150mg Take 1 [facility] (LYRICA) 1-30 capsule by ity o f 150 mg 00:00: mouth 2 [place] capsule 00 (two) Medical times Branch daily. meloxicam 2020-0 Yes [id number] 15mg Take 1 U nivers 15 mg 1-30 tablet by ity of tablet 00:00: mouth [place] 00 daily. Medical [facility] pregabalin 2020-0 Yes [id number] 150mg Take 1 [facility] (LYRICA) 1-30 capsule by ity o f 150 mg 00:00: mouth 2 [place] capsule 00 (two) Medical times Branch daily. meloxicam 2020-0 Yes [id number] 15mg Take 1 U nivers 15 mg 1-30 tablet by ity of tablet 00:00: mouth [place] 00 daily. Medical [facility] pregabalin 2020-0 Yes [id number] 150mg Take 1 [facility] (LYRICA) 1-30 capsule by ity o f 150 mg 00:00: mouth 2 [place] capsule 00 (two) Medical times Branch daily. meloxicam 2020-0 Yes [id number] 15mg Take 1 [facility] nivers 15 mg 1-30 tablet by ity of tablet 00:00: mouth [place] 00 daily. Medical [facility] pregabalin 2020-0 Yes [id number] 150mg Take 1 [facility] (LYRICA) 1-30 capsule by ity o f 150 mg 00:00: mouth 2 [place] capsule 00 (two) Medical times Branch daily. meloxicam 2020-0 Yes [id number] 15mg Take 1 [facility] nivers 15 mg 1-30 tablet by ity of tablet 00:00: mouth [place] 00 daily. Medical [facility] pregabalin 2020-0 Yes [id number] 150mg Take 1 [facility] (LYRICA) 1-30 capsule by ity o f 150 mg 00:00: mouth 2 [place] capsule 00 (two) Medical times Branch daily. meloxicam 2020-0 Yes [id number] 15mg Take 1 [facility] nivers 15 mg 1-30 tablet by ity of tablet 00:00: mouth [place] 00 daily. Medical [facility] pregabalin 2020-0 Yes [id number] 150mg Take 1 [facility] (LYRICA) 1-30 capsule by ity o f 150 mg 00:00: mouth 2 [place] capsule 00 (two) Medical times Branch daily. meloxicam 2020-0 Yes [id number] 15mg Take 1 [facility] nivers 15 mg 1-30 tablet by ity of tablet 00:00: mouth [place] 00 daily. [facility] pregabalin 2020-0 Yes [id number] 150mg Take 1 [facility] (LYRICA) 1-30 capsule by ity o f 150 mg 00:00: mouth 2 [place] capsule 00 (two) Medical times Branch daily. meloxicam 2020-0 Yes [id number] 15mg Take 1 [facility] nivers 15 mg 1-30 tablet by ity of tablet 00:00: mouth [place] 00 daily. Medical [facility] pregabalin 2020-0 Yes [id number] 150mg Take 1 [facility] (LYRICA) 1-30 capsule by ity o f 150 mg 00:00: mouth 2 [place] capsule 00 (two) Medical times Branch daily. meloxicam 2020-0 Yes [id number] 15mg Take 1 [facility] nivers 15 mg 1-30 tablet by ity of tablet 00:00: mouth [place] 00 daily. Medical [facility] pregabalin 2020-0 Yes [id number] 150mg Take 1 [facility] (LYRICA) 1-30 capsule by ity o f 150 mg 00:00: mouth 2 [place] capsule 00 (two) Medical times Branch daily. meloxicam 2020-0 Yes [id number] 15mg Take 1 U nivers 15 mg 1-30 tablet by ity of tablet 00:00: mouth [place] 00 daily. [facility] pregabalin 2020-0 Yes [id number] 150mg Take 1 [facility] (LYRICA) 1-30 capsule by ity o f 150 mg 00:00: mouth 2 [place] capsule 00 (two) Medical times Branch daily. meloxicam 2020-0 Yes [id number] 15mg Take 1 [facility] nivers 15 mg 1-30 tablet by ity of tablet 00:00: mouth [place] 00 daily. Medical [facility] pregabalin 2020-0 Yes [id number] 150mg Take 1 [facility] (LYRICA) 1-30 capsule by ity o f 150 mg 00:00: mouth 2 [place] capsule 00 (two) Medical times Branch daily. meloxicam 2019-0 Yes [id number] 15mg Take 1 U nivers 15 mg 1-30 tablet by ity of tablet 00:00: mouth [place] 00 daily. Medical [facility] meloxicam 2019-0 Yes [id number] 15mg Take 1 U nivers 15 mg 1-30 tablet by ity of tablet 00:00: mouth [place] 00 daily. Medical [facility] meloxicam 2019-0 Yes [id number] 15mg Take 1 U nivers 15 mg 1-30 tablet by ity of tablet 00:00: mouth [place] 00 daily. Medical [facility] meloxicam 2019-0 Yes [id number] 15mg Take 1 U nivers 15 mg 1-30 tablet by ity of tablet 00:00: mouth [place] 00 daily. Medical Branch meloxicam 2019-0 Yes [id number] 15mg Take 1 U nivers 15 mg 1-30 tablet by ity of tablet 00:00: mouth [place] 00 daily. Medical Branch meloxicam 2019-0 Yes [id number] 15mg Take 1 U nivers 15 mg 1-30 tablet by ity of tablet 00:00: mouth [place] 00 daily. Medical Branch meloxicam 2019-0 Yes [id number] 15mg Take 1 U nivers 15 mg 1-30 tablet by ity of tablet 00:00: mouth [place] 00 daily. [facility] meloxicam 2019-0 Yes [id number] 15mg Take 1 U nivers 15 mg 1-30 tablet by ity of tablet 00:00: mouth [place] 00 daily. Medical [facility] pregabalin 2019-0 2020- No [id number] 150mg Take 1 [facility] (LYRICA) 1-30 12-21 capsule by ity of 150 mg 00:00: 00:00 mouth 2 [place] capsule 00 :00 (two) Medical times Branch daily. hydroCHLORO 2019-0 2020- No [id number] 25mg Take 1 [facility] thiazide 25 1-30 07-09 tablet by it y of mg tablet 00:00: 00:00 mouth [place] 00 :00 daily. Medical Branch hydroCHLORO 2019-0 2020- No [id number] 25mg Take 1 [facility] thiazide 25 09-29- tablet by it y of mg tablet 00:00: 00:00 mouth [place] 00 :00 daily. Medical Branch hydroCHLORO 2020- No [id number] 25mg Take 1 [facility] thiazide 25 30 -09 tablet by it y of mg tablet 00:00: 00:00 mouth [place] 00 :00 daily. Medical Branch hydroCHLORO 2019- No [id number] 25mg Take 1 [facility] thiazide 25 09-29 tablet by it y of mg tablet 00:00: 00:00 mouth [place] 00 :00 daily. Medical [facility] metoprolol 2020- No [id number] 25mg Take 1 U nivers succinate 30 02-24 tablet by ity of XL 25 mg 24 00:00: 00:00 [place] hr tablet 00 :00 daily. [facility] metoprolol 2019- No [id number] 25mg Take 1 U nivers succinate 30 -24 tablet by ity of XL 25 mg 24 00:00: 00:00 [place] tablet 00 :00 daily. [facility] metoprolol 2019- No [id number] 25mg Take 1 U nivers succinate 30 [...] mouth 2 ity of ORAL) 15:02: (two) [place] 33 times Medical daily. Branch aripiprazol 2018-08 Yes 5mg Take 5 mg U nivers e (ABILIFY 2-17 by mouth 2 ity of ORAL) 15:02: (two) [place] 33 times Medical daily. Branch VITAMIN B 2019-1 Yes Take by Unive rs COMPLEX 0-31 mouth. ity of ORAL 17:11: [address] Branch traZODONE 2018-08 Yes 100mg Take 100 Uni vers 100 mg 0-31 mg by ity of tablet 17:11: mouth at [place] [address] bedtime. [facility] Branch VITAMIN B 2018-08 Yes Take by Unive rs COMPLEX 0-31 mouth. ity of ORAL 17:11: [address] Branch traZODONE 2018-08 Yes 100mg Take 100 Uni vers 100 mg 0-31 mg by ity of tablet 17:11: mouth at [place] [address] bedtime. Medical Branch VITAMIN B 2018-08 Yes Take by Unive rs COMPLEX 0-31 mouth. ity of ORAL 17:11: [address] Branch traZODONE 2018-08 Yes 100mg Take 100 Uni vers 100 mg 0-31 mg by ity of tablet 17:11: mouth at [place] [address] bedtime. [facility] Branch VITAMIN B 2018-08 Yes Take by Unive rs COMPLEX 0-31 mouth. ity of ORAL 17:11: [address] Branch traZODONE 2018-08 Yes 100mg Take 100 Uni vers 100 mg 0-31 mg by ity of tablet 17:11: mouth at [place] [address] bedtime. Medical Branch traZODONE Yes 100mg Take 100 Uni vers 100 mg 8-29 mg by ity of tablet 19:24: mouth at [place] [address] bedtime. Medical Branch traZODONE Yes 100mg Take 100 [facility] vers 100 mg 8-29 mg by ity of tablet 19:24: mouth at [place] [address] bedtime. Medical Branch traZODONE Yes 100mg Take 100 [facility] vers 100 mg 8-29 mg by ity of tablet 19:24: mouth at [place] [address] bedtime. Medical Branch traZODONE Yes 100mg Take 100 Uni vers 100 mg 8-29 mg by ity of tablet 19:24: mouth at [place] [address] bedtime. Medical Branch traZODONE Yes 100mg Take 100 Uni vers 100 mg 8-29 mg by ity of tablet 19:24: mouth at [place] [address] bedtime. Medical Branch traZODONE Yes 100mg Take 100 Uni vers 100 mg 8-29 mg by ity of tablet 19:24: mouth at [place] [address] bedtime. Medical Branch benztropine Yes 1mg Take [...] of 14:39: daily. [place] [facility] ARIPiprazol Yes 10mg Take 10 [...] of 14:39: daily. [place] [facility] ARIPiprazol Yes 10mg Take 10 [...] of 14:39: daily. [place] [facility] ARIPiprazol Yes 10mg Take 10 [...] mouth [place] 21 daily. Medical Branch OLANZapine 2019- Yes 10mg Take 10 mg U nivers (ZYPREXA) 8-29 by mouth 2 ity of 10 mg 14:39: (two) [place] tablet 21 times Medical daily. Branch metoprolol Yes [id number] 25mg Take 1 Un nneka succinate 8-29 tablet by ity o f XL 25 mg 24 00:00: mouth [place] hr tablet 00 daily. Medical Branch hydroCHLORO Yes [id number] 25mg Take 1 [facility] thiazide 25 8-29 tablet by ity of mg tablet 00:00: mouth [place] 00 daily. Medical Branch meloxicam Yes [id number] 15mg Take 1 U nivers 15 mg 8-29 tablet by ity of tablet 00:00: mouth [place] 00 daily. Medical Branch metoprolol Yes [id number] 25mg Take 1 Un nneka succinate 8-29 tablet by ity o f XL 25 mg 24 00:00: mouth [place] hr tablet 00 daily. Medical Branch hydroCHLORO Yes [id number] 25mg Take 1 [facility] thiazide 25 8-29 tablet by ity of mg tablet 00:00: mouth [place] 00 daily. Medical Branch meloxicam Yes [id number] 15mg Take 1 U nivers 15 mg 8-29 tablet by ity of tablet 00:00: mouth [place] 00 daily. Medical Branch metoprolol Yes [id number] 25mg Take 1 Un nneka succinate 8-29 tablet by ity o f XL 25 mg 24 00:00: mouth [place] hr tablet 00 daily. Medical Branch hydroCHLORO 0 Yes [id number] 25mg Take 1 [facility] thiazide 25 8-29 tablet by ity of mg tablet 00:00: mouth [place] 00 daily. Medical Branch meloxicam Yes [id number] 15mg Take 1 U nivers 15 mg 8-29 tablet by ity of tablet 00:00: mouth [place] 00 daily. Medical Branch metoprolol Yes [id number] 25mg Take 1 Un nneka succinate 8-29 tablet by ity o f XL 25 mg 24 00:00: mouth [place] hr tablet 00 daily. Medical Branch hydroCHLORO Yes [id number] 25mg Take 1 [facility] thiazide 25 8-29 tablet by ity of mg tablet 00:00: mouth [place] 00 daily. Medical Branch meloxicam Yes [id number] 15mg Take 1 U nivers 15 mg 8-29 tablet by ity of tablet 00:00: mouth [place] 00 daily. Medical Branch metoprolol Yes [id number] 25mg Take 1 Un nneka succinate 8-29 tablet by ity o f XL 25 mg 24 00:00: mouth [place] hr tablet 00 daily. Medical Branch hydroCHLORO Yes [id number] 25mg Take 1 [facility] thiazide 25 8-29 tablet by ity of mg tablet 00:00: mouth [place] 00 daily. Medical Branch meloxicam Yes [id number] 15mg Take 1 U nivers 15 mg 8-29 tablet by ity of tablet 00:00: mouth [place] 00 daily. Medical Branch metoprolol Yes [id number] 25mg Take 1 Un nneka succinate 8-29 tablet by ity o f XL 25 mg 24 00:00: mouth [place] hr tablet 00 daily. Medical Branch hydroCHLORO Yes [id number] 25mg Take 1 [facility] thiazide 25 8-29 tablet by ity of mg tablet 00:00: mouth [place] 00 daily. Medical Branch meloxicam Yes [id number] 15mg Take 1 U nivers 15 mg 8-29 tablet by ity of tablet 00:00: mouth [place] 00 daily. Medical Branch metoprolol Yes [id number] 25mg Take 1 Un nneka succinate 8-29 tablet by ity o f XL 25 mg 24 00:00: mouth [place] hr tablet 00 daily. Medical Branch hydroCHLORO Yes [id number] 25mg Take 1 [facility] thiazide 25 8-29 tablet by ity of mg tablet 00:00: mouth [place] 00 daily. Medical Branch meloxicam Yes [id number] 15mg Take 1 U nivers 15 mg 8-29 tablet by ity of tablet 00:00: mouth [place] 00 daily. Medical Branch metoprolol 2020- No [id number] 25mg Take 1 U nivers succinate 8-29 01-30 tablet by ity of XL 25 mg 24 00:00: 00:00 [place] hr tablet 00 :00 daily. Medical Branch hydroCHLORO 0 2020- No [id number] 25mg Take 1 [facility] thiazide 25 8-29 -30 tablet by it y of mg tablet 00:00: 00:00 mouth [place] 00 :00 daily. [facility] Branch meloxicam 2018- 2020- No [id number] 15mg Take 1 [facility] 15 mg 04-28 tablet by ity of tablet 00:00: 00:00 mouth [place] 00 :00 daily. [facility] Branch metoprolol 2020- No [id number] 25mg Take 1 U nivers succinate 04-28 tablet by ity of XL 25 mg 24 00:00: 00:00 [place] hr tablet 00 :00 daily. Medical Branch hydroCHLORO 2020- No [id number] 25mg Take 1 [facility] thiazide 25 04-28 tablet by it y of mg tablet 00:00: 00:00 mouth [place] 00 :00 daily. [facility] meloxicam 2020- No [id number] 15mg Take 1 [facility] 15 mg 04-28 tablet by ity of tablet 00:00: 00:00 mouth [place] 00 :00 daily. Medical Branch Dose 2019-0 No Unknown 7-30 00:00: 00 Dose 2019-0 No Unknown 7-30 00:00: 00 Dose 2019-0 No Unknown 7-30 00:00: 00 Dose 2019-0 No Unknown 7-30 00:00: 00 Dose 2019-0 No Unknown 7-30 00:00: 00 Dose 2019-0 No Unknown 7-30 00:00: 00 METOPROLOL 2019- 2019- No [id number] TAKE 1 U nivers SUCCINATE 7-06 07-29 TABLET BY ity of XL 25 mg 24 00:00: 00:00 MOUTH [place] hr tablet 00 :00 EVERY DAY Medic al Branch METOPROLOL 2018- 2019- No [id number] TAKE 1 U nivers SUCCINATE 7-10 -29 TABLET BY ity of XL 25 mg 24 00:00: 00:00 MOUTH [place] hr tablet 00 :00 EVERY DAY Medic mi Branch hydroCHLORO 2018- 2019- No [id number] 25mg Take 1 [facility] thiazide 25 -30 - tablet by it y of mg tablet 00:00: 00:00 mouth [place] 00 :00 daily. [facility] meloxicam 2018- 2019- No [id number] 7.5mg Take 1 [facility] (MOBIC) 7.5 -30 -29 tablet by it y of mg tablet 00:00: 00:00 mouth [place] 00 :00 daily. Medical Branch hydroCHLORO 2018- 2019- No [id number] 25mg Take 1 [facility] thiazide 25 5-30 - tablet by it y of mg tablet 00:00: 00:00 mouth [place] 00 :00 daily. Medical Branch meloxicam 2018- 2019- No [id number] 7.5mg Take 1 [facility] (MOBIC) 7.5 01-27 tablet by it y of mg [...] ORAL) 25 times Medical daily. Branch OLANZapine 2019- Yes 20mg Take 20 mg U nivers 20 mg 4-23 by mouth ity of tablet 20:00: at [place] 25 bedtime. Medical Branch aripiprazol Yes 5mg Take 5 mg U nivers e (ABILIFY 4-23 by mouth 2 ity of ORAL) 20:00: (two) [place] 25 times Medical daily. Branch DULOXETINE 2019- Yes 60mg Take 60 mg U nivers HCL 4-23 by mouth 3 ity of (CYMBALTA 20:00: (three) [place] ORAL) 25 times Medical daily. Branch OLANZapine [...] COMPLEX 3-28 mouth. ity of ORAL 16:11: [address] VITAMIN B Yes Take by Unive rs COMPLEX 3-28 mouth. ity of ORAL 16:11: [address] VITAMIN B Yes Take by Unive rs COMPLEX 3-28 mouth. ity of ORAL 16:11: [address] VITAMIN B Yes Take by Unive rs COMPLEX 3-28 mouth. ity of ORAL 16:11: [address] VITAMIN B Yes Take by Unive rs COMPLEX 3-28 mouth. ity of ORAL 16:11: [address] VITAMIN B Yes Take by Unive rs COMPLEX 3-28 mouth. ity of ORAL 16:11: [address] amlodipine No 1mg 5 mg tablet 2-19 00:00: 00 amlodipine 2019-0 No 1mg 5 mg tablet 2-19 00:00: 00 amlodipine 0 No 1mg 5 mg tablet 2-19 00:00: 00 amlodipine 2017-1 No 1mg 10 mg 2-11 tablet 00:00: 00 amlodipine 2017- No 1mg 10 mg 2-11 tablet 00:00: [...] 05-19 00:00: 00 Dose 2018-0 No Unknown 9-19 00:00: 00 Dose 2018-0 No Unknown 9 00:00: 00 Dose 2018-0 No Unknown 9-19 00:00: 00 Zyprexa 15 2018-0 No 1mg mg tablet 05-19 00:00: 00 Dose 2018-0 No Unknown 9-19 00:00: 00 Dose 2018-0 No Unknown 9- 00:00: 00 Dose 2018-0 No Unknown 9-19 00:00: 00 Zyprexa 15 2018-0 No 1mg mg tablet 05-19 00:00: 00 Dose 2018-0 No Unknown 9-19 00:00: 00 Dose 2018-0 No Unknown 919 00:00: 00 Dose 2018-0 No Unknown 9-19 00:00: 00 amlodipine 2018-0 No 1mg 10 [...] 8-15 tablet 00:00: 00 cyclobenzap 2018-0 Yes [id number] Bid prn Univers rine 10 mg 8-02 ity of tablet 00:00: [place] 00 Medical Branch cyclobenzap 2018-0 Yes [id number] Bid prn [facility] rine 10 mg 8-02 ity of tablet 00:00: [place] 00 Medical Branch cyclobenzap 2018-0 Yes [id number] Bid prn [facility] rine 10 mg 8-02 ity of tablet 00:00: [place] 00 Medical Branch cyclobenzap 2018-0 Yes [id number] Bid prn [facility] rine 10 mg 8-02 ity of tablet 00:00: [place] 00 Medical Branch cyclobenzap 2018-0 Yes [id number] Bid prn [facility] rine 10 mg 8-02 ity of tablet 00:00: [place] 00 Medical Branch cyclobenzap 2018-0 Yes [id number] Bid prn [facility] rine 10 mg 8-02 ity of tablet 00:00: [place] 00 Medical Branch cyclobenzap 2018-0 Yes [id number] Bid prn [facility] rine 10 mg 8-02 ity of tablet 00:00: [place] 00 Medical Branch cyclobenzap 2018-0 Yes [id number] Bid prn [facility] rine 10 mg 8-02 ity of tablet 00:00: [place] 00 Medical Branch cyclobenzap 2018-0 Yes [id number] Bid prn [facility] rine 10 mg 8-02 ity of tablet 00:00: [place] 00 Medical Branch cyclobenzap 2018-0 Yes [id number] Bid prn [facility] rine 10 mg 8-02 ity of tablet 00:00: [place] 00 Medical Branch cyclobenzap 2018-0 2020- No [id number] Bid prn [facility] rine 10 mg 8-02 02-24 ity of tablet 00:00: 00:00 [place] 00 :00 Medical Branch cyclobenzap 2018-0 2020- No [id number] Bid prn Univers rine 10 mg 8-02 02-24 ity of tablet 00:00: 00:00 [place] 00 :00 Medical Branch cyclobenzap 2018-0 2020- No [id number] Bid prn Univers rine 10 mg 8-02 02-24 ity of tablet 00:00: 00:00 [place] 00 :00 Medical Branch amlodipine 2018-0 No 1mg 5 mg tablet 03-22 00:00: 00 amlodipine 2018-0 No 1mg 5 mg tablet 7 00:00: 00 amlodipine 2018-0 No 1mg 5 mg tablet 7 00:00: 00 fluconazole 2018-0 No 1mg 150 [...] 5-19 capsule 00:00: 00 DULoxetine 2015-0 Yes [id number] Emanuel sey HCl 30 MG 3-16 Seybold oral 00:00: - Capsule 00 Externa Delayed l Release Sprinkle hydrOXYzine 2015-0 Yes [id number] Ke lsey HCl 25 MG 3-16 [place] oral Tablet 00:00: - 00 Externa l DULoxetine 2015-0 Yes [id number] Emanuel sey HCl 30 MG 3-16 [place] oral 00:00: - Capsule 00 Externa Delayed l Release Sprinkle hydrOXYzine 2016-0 Yes [id number] Ke lsey HCl 25 MG 3-16 [place] oral Tablet 00:00: - 00 Externa l DULoxetine 2015-0 Yes Jelena HCl 30 MG 3-16 [place] oral 00:00: - Capsule 00 Externa Delayed l Release Sprinkle hydrOXYzine 2015-0 Yes Jelena HCl 25 MG 3-16 [place] oral Tablet 00:00: - 00 Externa l DULoxetine 2015-0 Yes [id number] Emanuel sey HCl 30 MG 3-16 [place] oral 00:00: - Capsule 00 Externa Delayed l Release Sprinkle hydrOXYzine 2015-0 Yes [id number] Ke lsey HCl 25 MG 3-16 [facility] oral Tablet 00:00: - 00 Externa l Immunizations Ordered Immunization Filled Immunization Date Status Commen ts Source Name Name COVID-19 BIVALENT 2022-08-28 Completed Jelena Malcolmybold BOOSTER VACCINE 00:00:00 - Externa l MODERNA [...] - External Tdap- (Boostrix, 2019-04-29 Completed Jelena newman Adacel) 00:00:00 - External Pneumococcal Vaccine, 2019-04-29 Completed Emanuel sey Seybold Polysaccharide 00:00:00 - External Tdap- (Boostrix, 2019-04-29 Completed Jelena newman Adacel) 00:00:00 - External Pneumococcal Vaccine, 2019-04-29 Completed Emanuel sey Seybold Polysaccharide 00:00:00 - External Tdap- (Boostrix, 2019-04-29 Completed Jelena Umaña eybold Adacel) 00:00:00 - External Pneumococcal Vaccine, 2019-04-29 Completed Emanuel sey Seybold Polysaccharide 00:00:00 - External Tdap- (Boostrix, 2019-04-29 Completed Jelena shahbold Adacel) 00:00:00 - External DTaP Unspecified 2009-04-17 [...] - Externa l Meningococcal 2008-02-18 Completed Jelena Seyb old Mcv4,unspecified 00:00:00 - Heavy Forger 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 Hepatitis A 2008-02-18 Completed Jelena Seybol d 00:00:00 - External HPV 4 (Human 2008-02-18 Completed Jelena Seybo ld Papillomavirus) 00:00:00 - Externa l Meningococcal 2008-02-18 Completed Jelena Seyb old Mcv4,unspecified 00:00:00 - Heavy Forger 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 Hepatitis A 2008-02-18 Completed Jelena Seybol d 00:00:00 - External HPV 4 (Human 2008-02-18 Completed Jelena Seybo ld Papillomavirus) 00:00:00 - Externa l Meningococcal 2008-02-18 Completed Jelena Seyb old Mcv4,unspecified 00:00:00 - Heavy Forger 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 Hepatitis A 2008-02-18 Completed Jelena Seybol d 00:00:00 - External HPV 4 (Human 2008-02-18 Completed Jelena Seybo ld Papillomavirus) 00:00:00 - Externa l Meningococcal 2008-02-18 Completed Jelena Seyb old Mcv4,unspecified 00:00:00 - Heavy Forger 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 Td (adult), 2 Lf 2006-05-25 Completed Jelena Umaña eybold tetanus toxoid, 00:00:00 - Externa l preservative free, adsorbed Td (adult), 2 Lf 2006-05-25 Completed Jelena S eybold tetanus toxoid, 00:00:00 - Externa l preservative free, adsorbed Td (adult), 2 Lf 2006-05-25 Completed Jelena S eybold tetanus toxoid, 00:00:00 - Externa l [...] Exter nal HIB- Haemophilus 1997-05-31 Completed Jelena shahbold Influenzae Type B 00:00:00 - Exter nal HIB- Haemophilus 1997-05-31 Completed Jelena Umaña eybold Influenzae Type B 00:00:00 - Exter nal HIB- Haemophilus 1997-05-31 Completed Jelena shahbold Influenzae Type B 00:00:00 [...] - Exter nal DTP- 1996-08-05 Completed Jelena Ibrhaim Diphtheria,Tetanus,Pe 00:00:00 - E xternal rtussis HIB- [...] Jelena Eatono ld Unspecified 00:00:00 - External DTP- 1993 Completed Jelena Ibrahim Diphtheria,Tetanus,Pe 00:00:00 - E xternal rtussis DTP- 1993 Completed Jelena Ibrahim Diphtheria,Tetanus,Pe 00:00:00 - E xternal rtussis DTP- 1993 Completed Jelena Ibrahim Diphtheria,Tetanus,Pe 00:00:00 - E xternal rtussis DTP- 1993 Completed Jelean Ibrahim Diphtheria,Tetanus,Pe 00:00:00 - E xternal rtussis [...] Exter nal Hepatitis B, 1993 Completed Jelena Sejerzy ld Unspecified 00:00:00 - External Hepatitis B, 1993 Completed Jelena Malcolmtiffanyo ld Unspecified 00:00:00 - External Hepatitis B, 1993 Completed Jelena Malcolmtiffanyo ld Unspecified 00:00:00 - External Hepatitis B, 1993 Completed Jelena Malcolmtiffanyo ld Unspecified 00:00:00 - External Vital Signs Vital Name Observation Time Observation Value Comments Source Systolic blood 2022-10-28 15:06:00 129 mm[Hg] Jelena Seybold - pressure External Diastolic blood 2022-10-28 15:06:00 86 mm[Hg] Emanuelse y Seybold - pressure External Heart rate 2022-10-28 15:06:00 80 /min Jelena Umaña eybold - External Body temperature 2022-10-28 15:06:00 36.56 Mera Ashlie ey Seybold - External Respiratory rate 2022-10-28 15:06:00 16 /min Ashlie ey Seybold - External Body height 2022-10-28 15:06:00 160 cm Jelena shahbold - External Body weight 2022-10-28 15:06:00 124.739 kg Jelena Umaña eybold - External BMI 2022-10-28 15:06:00 48.71 kg/m2 Jelena Umaña eybold - External Systolic blood 2022-10-10 14:33:00 152 mm[Hg] Jelena Seybold - pressure External Diastolic blood 2022-10-10 14:33:00 100 mm[Hg] Emanuelse y Seybold - pressure External Heart rate 2022-10-10 14:33:00 80 /min Jelena Umaña eybold - External Body temperature 2022-10-10 14:33:00 36.17 [...] External Diastolic blood 2022-09-24 16:23:00 94 mm[Hg] Kelse y Seybold - pressure External Heart rate [...] Jelena S eybold - External Systolic blood 2022-09-09 14:45:00 142 mm[Hg] Jelena Seybold - pressure External Diastolic blood 2022-09-09 14:45:00 86 mm[Hg] Emanuelse y Seybold - pressure External Heart rate 2022-09-09 14:45:00 84 /min Jelena Umaña eybold - External Body temperature 2022-09-09 14:45:00 36.78 Mera Ashlie ey Seybold - External Respiratory rate 2022-09-09 14:45:00 14 /min Ashlie shah Seybold - External Body height 2022-09-09 14:45:00 160 cm Jelena Umaña eybold - External Body weight 2022-09-09 14:45:00 128.822 kg Jelena Umaña eybold - External BMI 2022-09-09 14:45:00 50.31 kg/m2 Jelena Umaña eybold - External Oxygen saturation in 2022-09-09 14:45:00 99 /min Jelena Malcolmybold - Arterial blood by External Pulse oximetry Systolic blood 2020-09-07 15:09:00 126 mm[Hg] aMrt mcleod of pressure [facility] Diastolic blood 2020-09-07 15:09:00 88 mm[Hg] Unive rsity of pressure [facility] Heart rate 2020-09-07 15:09:00 76 /min [facility] Body height 2020-09-07 15:09:00 160 cm [facility] Body weight 2020-09-07 15:09:00 114.306 kg [facility] BMI 2020-09-07 15:09:00 44.64 kg/m2 [facility] Systolic blood 2020-09-07 15:09:00 126 mm[Hg] Univer sity of pressure [facility] Diastolic blood 2020-09-07 15:09:00 88 mm[Hg] Unive rsity of pressure [facility] Heart rate 2020-09-07 15:09:00 76 /min [facility] Body height 2020-09-07 15:09:00 160 [...] 99 /min University of Arterial blood by [facility] nereida Pulse oximetry Branch Systolic blood 2019-10-24 17:13:00 120 mm[Hg] Univer sity of pressure [facility] Diastolic blood 2019-10-24 17:13:00 81 mm[Hg] Unive rsity of pressure [facility] Heart rate 2019-10-24 17:13:00 75 /min [facility] Respiratory rate 2019-10-24 17:13:00 19 /min Univ ers[facility] Body height 2019-10-24 17:13:00 160 cm [facility] Body weight 2019-10-24 17:13:00 110.133 kg [facility] BMI 2019-10-24 17:13:00 43.01 kg/m2 [facility] Oxygen saturation in 2019-10-24 17:13:00 99 /min University of Arterial blood by [facility] Pulse oximetry Branch Systolic blood 2019-09-29 16:38:00 [...] Branch Respiratory rate 2019-04-28 14:39:00 18 /min [facility] Body height 2019-04-28 14:39:00 160 cm [facility] Body weight 2019-04-28 14:39:00 123.832 kg [facility] BMI 2019-04-28 14:39:00 48.36 kg/m2 [facility] BP Systolic 2022-09-10 11:46:00 168 mm[Hg] [...] Source Performed REFERRAL- 2020-09-27 06:01:00 Doctor Lucina, [facility] REQUEST/RESPONSE [facility] MR KNEE LEFT WO CONTRAST 2020-08-20 18:12:04 Alexandre Delgado [facility] NOTICE OF PRIVACY 2020-08-02 06:01:00 Doctor Lucina, [facility] PRACTICES [facility] AGREEMENTS AUTHORIZATIONS 2020-08-02 06:01:00 Doctor Lucina, [facility] AND IRREVOCABLE [facility] ASSIGNMENTS (FORM 2001) VACCINATIONS - CONSENTS, 2020-05-17 05:01:00 Doctor Lucina, [facility] ELIGIBILITY, HISTORY [facility] XR KNEE 3 VW LEFT 2020-03-16 13:13:36 Alexandre Delgado [facility] SCANNED LAB RESULTS 2020-03-08 05:01:00 Doctor Lucina, [facility] ASSIGNMENT OF BENEFITS 2020-02-10 13:57:41 Doctor Lucina, [facility] BCPC - PRESCRIPTION / 2019-09-08 06:01:00 Doctor Lucina [facility] ORDER [facility] AGREEMENTS AUTHORIZATIONS 2019-04-28 05:01:00 Doctor Lucina, [facility] AND IRREVOCABLE [facility] ASSIGNMENTS (FORM 2001) 58570 Ecg Routine Ecg 2018-06-14 00:00:00 W/least 12 Lds W/i r Plan of Care Planned Activity Planned Date Details Comments Source Goal Plan of Care Note [code = 57901-4] Goal Plan of Care Note [code = 16124-9] Goal Plan of Care Note [code = 87169-6] Goal Plan of Care Note [code = 21302-8] Goal Plan of Care Note [code = 83910-6] Goal Plan of Care Note [code = 35084-8] Goal Plan of Care Note [code = 09809-1] Goal Plan of Care Note [code = 04553-9] Goal Plan of Care Note [code = 16643-0] Goal Plan of Care Note [code = 27740-5] Goal Plan of Care Note [code = 55083-5] Goal Plan of Care Note [code = 03665-5] Goal Plan of Care Note [code = 34682-3] Goal Plan of Care Note [code = 22459-6] Goal Plan of Care Note [code = 49011-4] Goal Plan of Care Note [code = 41173-8] Goal Plan of Care Note [code = 61040-0] Goal Plan of Care Note [code = 34683-1] Goal Plan of Care Note [code = 64317-7] Goal Plan of Care Note [code = 95274-7] Goal Plan of Care Note [code = 01068-6] Goal Plan of Care Note [code = 03215-6] Goal Plan of Care Note [code = 67545-0] Goal Plan of Care Note [code = 52154-6] Goal Plan of Care Note [code = 45685-1] Goal Plan of Care Note [code = 33475-6] Goal Plan of Care Note [code = 16247-9] Goal Plan of Care Note [code = 08074-1] Goal Plan of Care Note [code = 83776-6] Goal Plan of Care Note [code = 83577-5] Goal Plan of Care Note [code = 78096-6] Goal Plan of Care Note [code = 79586-6] Goal Plan of Care Note [code = 03337-0] Goal Plan of Care Note [code = 10952-4] Goal Plan of Care Note [code = 73534-4] Goal Plan of Care Note [code = 60188-4] Goal Plan of Care Note [code = 58804-3] Goal Plan of Care Note [code = 01417-5] Goal Plan of Care Note [code = 14799-0] Goal Plan of Care Note [code = 43225-0] Goal Plan of Care Note [code = 56916-7] Goal Plan of Care Note [code = 31788-8] Goal Plan of Care Note [code = 63973-4] Goal Plan of Care Note [code = 03068-7] Goal Plan of Care Note [code = 19154-1] Goal Plan of Care Note [code = 94218-8] Goal Plan of Care Note [code = 12884-3] Goal Plan of Care Note [code = 94386-2] Goal Plan of Care Note [code = 07258-8] Goal Plan of Care Note [code = 54807-3] Goal Plan of Care Note [code = 23406-4] Goal Plan of Care Note [code = 07488-5] Goal Plan of Care Note [code = 69653-2] Goal Plan of Care Note [code = 72013-5] Goal Plan of Care Note [code = 42100-0] Goal Plan of Care Note [code = 18181-9] Goal Plan of Care Note [code = 17356-9] Goal Plan of Care Note [code = 16953-5] Goal Plan of Care Note [code = 84326-9] Goal Plan of Care Note [code = 29449-7] Goal Plan of Care Note [code = 47247-0] Goal Plan of Care Note [code = 38389-8] Goal Plan of Care Note [code = 00871-0] Goal Plan of Care Note [code = 74172-5] Goal Plan of Care Note [code = 29673-5] Goal Plan of Care Note [code = 96603-5] Goal Plan of Care Note [code = 68770-7] Goal Plan of Care Note [code = 14263-4] Goal Plan of Care Note [code = 28910-2] Goal Plan of Care Note [code = 45309-3] Goal Plan of Care Note [code = 51750-2] Goal Plan of Care Note [code = 10675-9] Goal Plan of Care Note [code = 37654-3] Goal Plan of Care Note [code = 40249-5] Goal Plan of Care Note [code = 35805-7] Goal Plan of Care Note [code = 11579-7] Goal Plan of Care Note [code = 71770-8] Goal Plan of Care Note [code = 06369-2] Goal Plan of Care Note [code = 11514-6] Goal Plan of Care Note [code = 34015-3] Goal Plan of Care Note [code = 08939-8] Goal Plan of Care Note [code = 05456-3] Goal Plan of Care Note [code = 80818-7] Goal Plan of Care Note [code = 34910-7] Goal Plan of Care Note [code = 44610-4] Goal Plan of Care Note [code = 30216-5] Goal Plan of Care Note [code = 69123-3] Goal Plan of Care Note [code = 89159-3] Goal Plan of Care Note [code = 81650-4] Goal Plan of Care Note [code = 94740-3] Goal Plan of Care Note [code = 02504-9] Goal Plan of Care Note [code = 51887-4] Goal Plan of Care Note [code = 75393-6] Goal Plan of Care Note [code = 72771-1] Goal Plan of Care Note [code = 11326-1] Goal Plan of Care Note [code = 78359-2] Goal Plan of Care Note [code = 12865-5] Goal Plan of Care Note [code = 42396-3] Goal Plan of Care Note [code = 20743-2] Goal Plan of Care Note [code = 29964-0] Goal Plan of Care Note [code = 23917-6] Goal Plan of Care Note [code = 68467-1] Goal Plan of Care Note [code = 97393-7] Goal Plan of Care Note [code = 68200-4] Goal Plan of Care Note [code = 67717-6] Goal Plan of Care Note [code = 93113-6] Goal Plan of Care Note [code = 35063-6] Goal Plan of Care Note [code = 25817-2] Goal Plan of Care Note [code = 46095-5] Encounters Start End Encounter Admission Attending Care Care Encounter Source Date/Time Date/Time Type Type Clinicians Facility Department ID 2023-04-28 2023-04-28 Outpatient JELENA VICK [id number] Jelena 09:00:00 09:00:00 DARLIN Ashley ld 2022-11-07 2022-11-07 Outpatient JELENA VICK [id number] Jelena 00:00:00 00:00:00 DARLIN Ashley ld 2022-11-07 2022-11-07 Outpatient JELENA VICK [id number] Jelena 00:00:00 00:00:00 DARLIN Ashley ld 2022-11-07 2022-11-07 Outpatient JELENA IVCK [id number] Jelena 00:00:00 00:00:00 DARLIN Ashley ld 2022-11-07 2022-11-07 Outpatient JELENA VICK [id number] Jelena 00:00:00 00:00:00 DARLIN Ashley ld 2022-11-072022-11-07 Outpatient FARIDAL JELENA KNIGHT [id number] Jelena 00:00:00 00:00:00 ROBYN Seybol d 2022-11-07 2022-11-07 Outpatient HUNDLJELENA JELENA [id number] Jelena 00:00:00 00:00:00 ROBYN Seybol d 2022-11-07 2022-11-07 Outpatient FARIDAL, JELENA KNIGHT [id number] Jelena 00:00:00 00:00:00 ROBYN Seybol d 2022-11-07 2022-11-07 Outpatient HUNDL JELENA KNIGHT [id number] Jelena 00:00:00 00:00:00 ROBYN Seybol d 2022-11-07 2022-11-07 Outpatient HUNDL, JELENA KNIGHT [id number] Jelena 00:00:00 00:00:00 ROBYN Seybol d 2022-10-30 2022-10-30 Outpatient [facility] [id number] Jarod 08:26:44 08:26:44 0302 F Lee 2022-10-30 2022-10-30 Outpatient FARIDAL JELENA KNIGHT [id number] Jelena 00:00:00 00:00:00 ROBYN Seybol d 2022-10-29 2022-10-29 Outpatient FARIDAL JELENA KNIGHT [id number] Jelena 00:00:00 00:00:00 ROBYN Seybol d 2022-10-29 2022-10-29 Outpatient FARIDAL JELENA KNIGHT [id number] Jelena 00:00:00 00:00:00 ROBYN Seybol d 2022-10-29 2022-10-29 Outpatient FARIDAL JELENA KNIGHT [id number] Jelena 00:00:00 00:00:00 ROBYN Seybol d 2022-10-29 2022-10-29 Outpatient JELENA VICK [id number] Jelena 00:00:00 00:00:00 DARLIN Malcolmybo ld 2022-10-28 2022-10-28 Outpatient LAB47 JELENA KNIGHT [id number] Jelena 09:45:00 09:45:00 Seybol d 2022-10-28 2022-10-28 Outpatient NAVA JELENA KNIGHT [id number] Jelena 09:00:00 09:00:00 DARLIN Seybo ld 2022-10-23 2022-10-23 Outpatient JELENA GARY [id number] Jelena 00:00:00 00:00:00 ROBYN Seybol d 2022-10-22 2022-10-22 Outpatient JELENA GARY [id number] Jelena 08:00:00 08:00:00 ROBYN Seybol d 2022-10-13 2022-10-13 Outpatient SFA SFA [id number] Jarod 11:24:16 11:24:16 0213 F Lee 2022-10-10 2022-10-10 Outpatient LAB90 JELENA KNIGHT [id number] Jelena 09:25:00 09:25:00 Seybol d 2022-10-10 2022-10-10 Outpatient JELENA GARY [id number] Jelena 08:30:00 08:30:00 ROBYN Seybol d 2022-10-10 2022-10-10 Outpatient COOKIE, JELENA KNIGHT [id number] Jelena 00:00:00 00:00:00 ROBYN Seybol d 2022-10-09 2022-10-09 Outpatient JELENA GARY [id number] Jelena 08:30:00 08:30:00 ROBYN Seybol d 2022-10-09 2022-10-09 Outpatient JELENA GARY [id number] Jelena 00:00:00 00:00:00 ROBYN Seybol d 2022-09-30 2022-09-30 Outpatient JELENA GARY [id number] Jelena 00:00:00 00:00:00 ROBYN Seybol d 2022-09-26 2022-09-26 Outpatient JELENA GARY [id number] Jelena 00:00:00 00:00:00 ROBYN Seybol d 2022-09-24 2022-09-24 Outpatient LAB90 JELENA KNIGHT [id number] Jelena 17:05:00 17:05:00 Seybol d 2022-09-24 2022-09-24 Outpatient JELENA GARY [id number] Jelena 11:00:00 11:00:00 ROBYN Seybol d 2022-09-22 2022-09-22 Outpatient SFA SFA [id number] Jarod 09:21:24 09:21:24 0123 F Lee 2022-09-22 2022-09-22 Outpatient JELENA GARY JELENA [id number] Jelena 00:00:00 00:00:00 ROBYN Seybol d 2022-09-17 2022-09-17 Outpatient JELENA GARY JELENA [id number] Jelena 00:00:00 00:00:00 ROBYN Seybol d 2022-09-12 2022-09-12 Outpatient COOKIE JELENA JELENA [id number] Jelena 00:00:00 00:00:00 ROBYN Seybol d 2022-09-11 2022-09-11 Outpatient JELENA GARY JELENA [id number] Jelena 00:00:00 00:00:00 ROBYN Seybol d 2022-09-10 2022-09-10 Outpatient SFA SFA [id number] Jarod 11:36:44 11:36:44 0111 F Lee 2022-09-10 2022-09-10 Outpatient [id number] 00:00:00 00:00:00 Visit 87da-47c3 7da-47c3-b -hn10-4m4 p82-7o9u7j [id number] 2022-09-09 2022-09-09 Outpatient LAB90 JELENA KNIGHT [id number] Jelena 09:30:00 09:30:00 Seybol d 2022-09-09 2022-09-09 Outpatient COOKIE JELENA KNIGHT [id number] Jelena 08:30:00 08:30:00 ROBYN Seybol d 2022-09-09 2022-09-09 Outpatient COOKIE JELENA KNIGHT [id number] Jelena 00:00:00 00:00:00 ROBYN Seybol d 2022-09-04 2022-09-04 Outpatient SFA SFA [id number] Jarod 08:29:33 08:29:33 0105 F Lee 2022-09-04 2022-09-04 Outpatient [id number] [id number] 00:00:00 00:00:00 Visit 1fs2-9gu1 bd9-4ec7-b -bbc8-d95 bc8-d957ab [id number] 2022-08-28 2022-08-[address] [facility] SFA [id number] Herbert Olivera 11:35:11 11:35:11 1229 F Lee 2022-08-28 2022-08-28 Outpatient [id number] 00:00:00 00:00:00 Visit 010b-47c2 10b-47c2-b -w5l9-s41 0s9-f946x4 0c9361k3c 517b1b 2022-05-24 2022-05-24 emergency [id number] 15:15:00 18:38:00 2381-551e 81-551e-843 36 -843c-ca8 c-[id number] [id number] 5eb 2022-03-15 2022-03-15 Outpatient [facility] 761 [place] 10:56:00 10:56:00 FLO 0716 [facility] 2020-11-29 2020-11-29 Outpatient Gracia GRAFF [facility] [id number] Univers 15:30:00 15:30:00 ANNEMARIE magaña [facility] 2020-10-23 2020-10-23 Telephone Alexandre Delgado 1.2.840.114 [id number] [facility] 00:00:00 00:00:00 [facility] 350.1.13.10 it y of HEALTH 4.2.7.2.686 [place] UNIT [id number] [address] 2020-10-23 2020-10-23 Telephone Alexandre Delgado 1.2.840.114 [id number] 00:00:00 00:00:00 [facility] 350.1.13.10 HEALTH 4.2.7.2.686 UNIT [id number] [facility] 2020-10-12 2020-10-12 Outpatient R TASH [facility] [id number] Univers 09:00:00 09:00:00 SHEY itemmy [facility] 2020-09-27 2020-09-27 Orders Doctor CONNER 1.2.840.114 [id number] Univers 00:00:00 00:00:00 Only Unassigned, LESLEY 350.1.13.10 ity of [facility] 4.2.7.2.686 Marvel as [phone] [address] 2020-09-27 2020-09-27 Orders Doctor CONNER 1.2.840.114 [id number] 00:00:00 00:00:00 Only Unassigned, LESLEY 350.1.13.10 [facility] 4.2.7.2.686 [id number] 009 2020-09-20 2020-09-20 [facility]phone [facility] 1.2.840.114 [id number] Univers 00:00:00 00:00:00 Shey Lopez [facility] 350.1.13.10 it y of Surgical 4.2.7.2.686 Marvel as Specialti [phone] Ct dical es 198 [facility] 2020-09-20 2020-09-20 Telephone [facility] 1.2.840.114 [id number] 00:00:00 00:00:00 Shey Cabral 350.1.13.10 Surgical 4.2.7.2.686 Specialti [phone] es [address] [place] [address] 2020-09-07 2020-09-07 Office [facility] 1.2.589.924 [id number] [facility] 09:03:53 09:52:26 Visit Shey Cabral 350.1.13.10 it y of Surgical 4.2.7.2.686 Marvel as Specialti [phone] Me dical es 198 [facility] 2020-09-07 2020-09-07 Office [facility] 1.2.924.508 [id number] 09:03:53 09:52:26 Visit Shey Lopez [employer] 350.1.13.10 Surgical 4.2.7.2.686 Specialti [id number] es [address] [place] 2020-09-07 2020-09-07 Outpatient R TASH [facility] [id number] Univers 09:00:00 09:00:00 SHEY [facility] 2020-08-30 2020-08-30 [facility] [id number] Univers 08:30:00 08:30:00 [facility] 2020-08-20 2020-08-20 [facility] Sandy [facility] 1.2.840.114 [id number] Univers 10:11:58 23:59:00 Encounter Health 350.1.13.10 [place] [id number] [facility] [address] [place] ([facility]) 2020-08-20 2020-08-20 Outpatient R SANDY [facility] [id number] Univers 10:11:58 23:59:00 ity of [facility] 2020-08-16 2020-08-16 Jo Ann [facility] 1.2.840.114 [id number] Univers 00:00:00 00:00:00 [facility] 350.1.13.10 it y of [place] 4.2.7.2.686 Marvel as Yessenia [phone] [address] Office Building One 2020-08-02 2020-08-02 Office Care, Ang Primary BRAZORIA 1.2.840 .114 [id number] Univers 10:40:31 12:20:58 Visit Alexandre Delgado [facility] 350.1.13.10 it[place] [id number] [facility] [address] [place] 2020-08-02 2020-08-02 Outpatient R SANDY [facility] [id number] Univers 10:30:00 10:30:00 ity [facility] 2020-08-02 2020-08-02 Orders Doctor PRIETO 1.2.840.114 [id number] Univers 00:00:00 00:00:00 Only Unassigned, LESLEY 350.1.13.10 ity of [facility] 4.2.7.2.686 Marvel as [id number] Medi [address] 2020-05-31 2020-05-31 Outpatient R BRIANDA [facility] [id number] Univers 08:50:00 08:50:00 ILIANA itemmy [facility] 2020-05-24 2020-05-24 Outpatient Gracia DELGADO ALEXANDRE [facility] [id number] Univers 00:00:00 00:00:00 ity of [facility] 2020-05-22 2020-05-22 Outpatient R BRIANDA [facility] [id number] Univers 09:50:00 09:50:00 ILIANA ity [facility] 2020-05-17 2020-05-21 Office Care, Ang Primary [place] 1.2.840 .114 [id number] Univers 11:05:31 09:49:52 Visit Alexandre Delgado [facility] 350.1.13.10 it[place] [id number] [facility] [address] [place] 2020-05-21 2020-05-21 Outpatient Gracia DELGADO [facility] [id number] Univers 00:00:00 00:00:00 ity of [facility] 2020-05-17 2020-05-17 Outpatient R SANDY [facility] [id number] Univers 10:30:00 10:30:00 ity [facility] 2020-05-17 2020-05-17 Orders Doctor CONNER 1.2.840.114 [id number] Univers 00:00:00 00:00:00 Only Unassigned, LESLEY 350.1.13.10 ity of [place] [facility] 4.2.7.2.686 Marvel as [id number] [address] 2020-05-08 2020-05-08 Out[facility] [id number] Univers 08:30:00 08:30:00 ANNEMARIE klein f [facility] 2020-05-08 2020-05-08 Telemedici DajuanCentinela [facility] 1.2.840.114 [id number] Univers 07:05:41 07:35:41 ne Visit Annemarie AVILES 350.1.13.10 ity [place] AT [phone] Ct suman BYRD [address] [facility] 2020-05-01 2020-05-01 Outpatient R DAJUAN [facility] [id number] Univers 09:30:00 09:30:00 ANNEMARIE arshad o f [facility] 2020-04-24 2020-04-24 Outpatient [facility] [id number] Univers 09:30:00 09:30:00 ANNEMARIE arshad o f [facility] 2020-03-08 2020-03-20 Office Care, Ang Primary ROSY 1.2.840 .114 [id number] Univers 10:02:59 09:15:53 Visit Alexandre Delgado [facility] 350.1.13.10 [place] [id number] [facility] [address] [place] 2020-03-16 2020-03-16 Hospital Alexandre Delgado [facility] 1.2.840.114 [id number] Univers 07:51:00 23:59:00 Encounter [place] 350.1.13.10 ity of [place].7.2.[place] [id number] [facility] [address] [place] 2020-03-16 2020-03-16 Outpatient R SANDY ALEXANDRE [facility] [id number] Univers 00:00:00 00:00:00 ity of [facility] 2020-03-13 2020-03-13 Telephone Bethany Delgadoteodora GALLEGOS 1.2.840.114 [id number] Univers 00:00:00 00:00:00 [facility] 350.1.13.10 it [place].2.[place] [id number] [address] 2020-03-08 2020-03-08 Outpatient R ALEXANDRE DELGADO [facility] [id number] Univers 10:00:00 10:00:00 ity of [facility] 2020-03-08 2020-03-08 Orders Doctor PRIETO 1.2.840.114 [id number] Univers 00:00:00 00:00:00 Only Unassigned, LESLEY 350.1.13.10 ity of [place] [facility] 4.2.7.2.686 Marvel as [phone] [facility] [address] 2020-02-29 2020-02-29 Telephone Bethany Delgadoteodora GALLEGOS 1.2.840.114 [id number] Univers 00:00:00 00:00:00 [facility] 350.1.13.10 it [place].2.[place] [phone] [address] 2020-02-14 2020-02-14 Telephone [facility] 1.2.931.409 [id number] Univers 00:00:00 00:00:00 Dannie [place] 350.1.13.10 it[place].2.[place] [phone] Ct dical nal 059 [facility] 2020-02-10 2020-02-10 Outpatient R [facility] [id number] Univers 09:00:00 09:00:00 ity of [facility] 2020-02-10 2020-02-10 Orders Doctor CONNER 1.2.840.114 [id number] Univers 00:00:00 00:00:00 Only Unassigned, LESLEY 350.1.13.10 [facility] 4.2.7.2.686 Marvel as [phone] [address] 2020-01-24 2020-01-24 [facility] [id number] Univers 10:40:00 10:40:00 DANNIE tafoyay o f [facility] 2020-01-24 2020-01-24 Telemedici [facility] 1.2.840.114 [id number] Univers 07:57:10 08:17:10 ne Visit Dannie [place] 350.1.13.10 ity [facility] 4.2.7.2.[place] [id number] Ct dical nal 9 [facility] 2020-01-18 2020-01-18 Outpatient R [facility] [id number] Univers 13:00:00 13:00:00 ity of [facility] 2019-11-10 2019-11-10 Telephone Alexandre Delgado ROSY 1.2.840.114 [id number] Univers 00:00:00 00:00:00 [facility] 350.1.13.10 it y [place].2.[place] [id number] [address] 2019-11-03 2019-11-03 Outpatient R ALEXANDRE DELGADO [facility] 002 [id number] Univers 08:15:00 08:15:00 ity of [facility] 2019-10-25 2019-10-25 Office [facility] 1.2.840.114 [id number] Univers 08:48:06 09:27:18 Visit Annemarie AVILES 350.1.13.10 ity of C[place].2.[place] AT [phone] Ct dicnargis [facility] [address] [facility] 2019-10-25 2019-10-25 Out[facility] [id number] Univers 09:00:00 09:00:00 ANNEMARIE tafoyay o f [facility] 2019-10-24 2019-10-24 [facility] 1.2.840.114 [id number] Univers 10:57:17 15:44:20 Visit Dannie Gaspar 350.1.13.10 ity [facility] 4.2.7.2.686 [phone] [facility] dicnargis nal 059 [facility] 2019-10-24 2019-10-24 [facility] [id number] Univers 11:00:00 11:00:00 PRETTYPIYUSHYOUNG pavithra o f [facility] 2019-09-29 2019-09-29 Office Care, Aries GALLEGOS 1.2.840 .114 [id number] Univers 10:38:08 11:16:42 Visit Alexandre Delgado [facility] 350.1.13.10 [place] [phone] [address] 2019-09-29 2019-09-29 Outpatient R ALEXANDRE DELGADO [facility] [id number] Univers 10:00:00 11:16:42 ity of [facility] 2019-09-14 2019-09-14 Telephone Alexandre Delgado ROSY 1.2.840.114 [id number] [facility] 00:00:00 00:00:00 [facility] 350.1.13.10 [place] [phone] [address] 2019-09-08 2019-09-08 Orders Doctor CONNER 1.2.840.114 [id number] Univers 00:00:00 00:00:00 Only Unassigned, LESLEY 350.1.13.10 ity of [facility] 4.2.7.2.686 Marvel as [phone] [address] 2019-05-05 2019-05-05 Telephone Alexandre Delgado 1.2.840.114 [id number] Univers 00:00:00 00:00:00 [facility] 350.1.13.10 [place] [phone] [address] 2019-04-28 2019-04-28 Office Care, Aries GALLEGOS 1.2.840 .114 [id number] Univers 09:26:40 11:38:19 Visit Alexandre Delgado [facility] 350.1.13.10 [place] [phone] [address] 2019-04-28 2019-04-28 Orders Doctor CONNER 1.2.840.114 [id number] Univers 00:00:00 00:00:00 Only Unassigned, LESLEY 350.1.13.10 ity of [facility] 4.2.7.2.686 [place] as [phone] [address] Results Test Description Test Time Test Comments Results Result Comments Source TSH, THIRD GENERATION 2022-09-11 04:08:38 Test Item Value Reference Range Interpretation Comme nts TSH, THIRD GENERATION (test 2.060 UIU/ML 0.400-4.100 UNLESS OTHERWISE INDICATED, code = 2821) ALL TESTING PER FORMED ATCLINICAL [facility] [place]. [address] [place] [address] 4063 SENIOR HEALTH CONSULTANT: Tracey COBB [id number] [place] [id number] COMPREHENSIVE METABOLIC [id number] 03:23:31 Test Item Value Reference Range Interpretation Comments GLUCOSE (test code = 80 MG/DL -99 2216) BUN (test code = 7 MG/DL 02-17) CREATININE (test 0.55 MG/DL 0.60-1.30 L code = 221) eGFR (2020 CKD-EPI) 127 >60 (test code = 72463) ML/MIN/1.73 CALC BUN/CREAT (test 13 RATIO 6-28 code = 223) SODIUM (test code = 138 MEQ/L 343-107 5890) POTASSIUM (test code 3.9 MEQ/L 3.5-5.4 = 2227) CHLORIDE (test code 104 MEQ/L 95-107 = 2214) CARBON DIOXIDE (test 21 MEQ/L 19-31 code = 2205) CALCIUM (test code = 9.5 MG/DL 8.5-10.5 2208) PROTEIN, TOTAL (test 7.9 G/DL 6.1-8.3 code = 2228) ALBUMIN (test code = 4.2 G/DL 3.5-5.2 2200) CALC GLOBULIN (test 3.7 G/DL 1.9-3.7 code = 2239) CALC A/G RATIO (test 1.1 RATIO 1.0-2.6 code = 2233) BILIRUBIN, TOTAL 0.4 MG/DL See_Comment [Automated message] [...] U/L 5-40 2218) CBC W/AUTO DIFF WITH [id number] 02:00:05 Test Item Value Reference Range Interpretation [...] RBCS 0.00 K/UL 0.00-0.11 (test code = 05427) CT/NG, NAAT, [id number] 20:52:50 Test Item Value Reference Range Interpretation Comments GONORRHEA, NAAT NEGATIVE NEGATIVE Note: Testi ng is (test code = 64113) performe d with [employer] EDEL 6800/8800 systems using real-time polymerase cali n reaction (PCR) method. CHLAMYDIA, NAAT NEGATIVE NEGATIVE Note: Testi ng is (test code = 39733) performe d with [employer] EDEL 6800/8800 systems using real-time polymerase cali n reaction (PCR) method. HEPATITIS PANEL, [id number] 05:02:20 Test Item Value Reference Range Interpretation Comments HEPATITIS A IgM (test NON-REACTIVE NON-REACTIVE code = 38478) HEPATITIS B CORE IgM NON-REACTIVE NON-REACTIVE (test code = 4644) HEPATITIS B SURF AG NON-REACTIVE NON-REACTIVE (test code = 2739) HEPATITIS C ANTIBODY NON-REACTIVE NON-REACTIVE (test code = 4675) INTERPRETATION (NOTE) Hepatitis A HEPATITIS A: (test code sero logy shows no = 2552) evidence of acu te hepatitis A. INTERPRETATION (NOTE) Hepatitis B HEPATITIS B: (test code sero logy shows no = 65734) evidence of acu te hepatitis B and no indication of exposure to hepatitis B vir us in the previous alejandra eight months. INTERPRETATION (NOTE) Hepatitis C HEPATITIS C: (test code sero logy shows no = 34481) evidence of exposure to hepatitisC viru s at this time. I t can take up to 12 months after exposure tothe hepatitis C vir us for antibodies to become detectab le in the blood in certain patient s. HIV 1/2 4TH GEN, RFLX [id number] 05:02:20 Test Item Value Reference Range Interpretation Comments HIV 1/2 4TH GEN, NON-REACTIVE NON-REACTIVE UNLESS OTH ERWISE RFLX CONF (test INDICATED, A LL TESTING code = 3514) [facility] [employer] [address] [place] [address] DIRECTOR: [place] AGUIRRE M.D. [place] NUMBER [id number] CAP ACCREDITATION N O. [id number] RPR REFLEX TO T. PALLIDUM - [id number] 04:28:08 Test Item Value Reference Range Interpretation Comments RPR (test code = 49034) NON-REACTIVE NON-REACTIVE RPR TITER (test code = 3500) NOT INDIC. TITER NOT INDIC. CT/NG, TMA, [id number] 00:00:00 Test Item Value Reference Range Interpretation Comments GONORRHEA, NAAT (test code = 02469) NEGATIVE CHLAMYDIA, NAAT (test code = 21320) NEGATIVE CT/NG, TMA, [id number] 00:00:00 Test Item Value Reference Range Interpretation Comments GONORRHEA, NAAT (test code = 70305) NEGATIVE CHLAMYDIA, NAAT (test code = 99208) NEGATIVE RPR REFLEX TO T. PALLIDUM - [id number] 00:00:00 Test Item Value Reference Range Interpretation Comments RPR (test code = 09094) NON-REACTIVE RPR TITER (test code = 3500) NOT INDIC. TITER RPR REFLEX TO T. PALLIDUM - [id number] 00:00:00 Test Item Value Reference Range Interpretation Comments RPR (test code = 54697) NON-REACTIVE RPR TITER (test code = 3500) NOT INDIC. TITER ACUTE HEPATITIS [id number] 00:00:00 Test Item Value Reference Range Interpretation Comments HEPATITIS A IgM (test code = NON-REACTIVE 89879) HEPATITIS B CORE IgM (test code NON-REACTIVE = 4644) HEPATITIS B SURF AG (test code = NON-REACTIVE 2739) HEPATITIS C ANTIBODY (test code NON-REACTIVE = 4675) INTERPRETATION HEPATITIS A: (NOTE) (test code = 2552) INTERPRETATION HEPATITIS B: (NOTE) (test code = 84825) INTERPRETATION HEPATITIS C: (NOTE) (test code = 96234) ACUTE HEPATITIS [id number] 00:00:00 Test Item Value Reference Range Interpretation Comments HEPATITIS A IgM (test code = NON-REACTIVE 41218) HEPATITIS B CORE IgM (test code NON-REACTIVE = 4644) HEPATITIS B SURF AG (test code = NON-REACTIVE 2739) HEPATITIS C ANTIBODY (test code NON-REACTIVE = 4675) INTERPRETATION HEPATITIS A: (NOTE) (test code = 2552) INTERPRETATION HEPATITIS B: (NOTE) (test code = 92266) INTERPRETATION HEPATITIS C: (NOTE) (test code = 44683) HIV 1/2 4TH GEN, RFLX [id number] 00:00:00 Test Item Value Reference Range Interpretation Comments HIV 1/2 4TH GEN, RFLX CONF (test NON-REACTIVE code = 3514) HIV 1/2 4TH GEN, RFLX [id number] 00:00:00 Test Item Value Reference Range Interpretation Comments HIV 1/2 4TH GEN, RFLX CONF (test NON-REACTIVE code = 3514) VITAMIN D, 25 [id number] 03:25:23 Test Item Value Reference Range Interpretation [...] TESTING PERFORM ED ATCL[facility] PATH [facility], [facility]. [address] [place] [address] LABORATORY DIRE CTOR: Rebeca COBB. CLIA NUMBER [id number] CAP ACCREDITATION N O. [id number] HIV 1/2 4TH GEN, RFLX [id number] 03:00:39 Test Item Value Reference Range Interpretation Comments HIV 1/2 4TH GEN, RFLX CONF (test NON-REACTIVE NON-REACTIVE code = 3514) HIV AB/AG COMBO RFLX [id number] 00:00:00 Test Item Value Reference Range Interpretation Comments HIV 1/2 4TH GEN, RFLX CONF (test NON-REACTIVE code = 3514) HIV AB/AG COMBO RFLX [id number] 00:00:00 Test Item Value Reference Range Interpretation Comments HIV 1/2 4TH GEN, RFLX CONF (test NON-REACTIVE code = 3514) VITAMIN D, 25 [id number] 00:00:00 Test Item Value Reference Range Interpretation Comments VITAMIN D, 25 OH (test code = 4958) 27 NG/ML VITAMIN D, 25 [id number] 00:00:00 Test Item Value Reference Range Interpretation Comments VITAMIN D, 25 OH (test code = 4958) 27 NG/ML HIV AB/AG COMBO RFLX [id number] 00:00:00 Test Item Value Reference Range Interpretation Comments HIV 1/2 4TH GEN, RFLX CONF (test NON-REACTIVE code = 3514) HIV AB/AG COMBO RFLX [id number] 00:00:00 Test Item Value Reference Range Interpretation Comments HIV 1/2 4TH GEN, RFLX CONF (test NON-REACTIVE code = 3514) VITAMIN D, 25 [id number] 00:00:00 Test Item Value Reference Range Interpretation Comments VITAMIN D, 25 OH (test code = 4958) 27 NG/ML VITAMIN D, 25 [id number] 00:00:00 Test Item Value Reference Range Interpretation Comments VITAMIN D, 25 OH (test code = 4958) 27 NG/ML HIV AB/AG COMBO RFLX [id number] 00:00:00 Test Item Value Reference Range Interpretation Comments HIV 1/2 4TH GEN, RFLX CONF (test NON-REACTIVE code = 3514) HIV AB/AG COMBO RFLX [id number] 00:00:00 Test Item Value Reference Range Interpretation Comments HIV 1/2 4TH GEN, RFLX CONF (test NON-REACTIVE code = 3514) VITAMIN D, 25 [id number] 00:00:00 Test Item Value Reference Range Interpretation Comments VITAMIN D, 25 OH (test code = 4958) 27 NG/ML VITAMIN D, 25 [id number] 00:00:00 Test Item Value Reference Range Interpretation Comments VITAMIN D, 25 OH (test code = 4958) 27 NG/ML TSH, THIRD [id number] 00:19:50 Test Item Value Reference Range Interpretation Comments TSH, THIRD GENERATION (test code 1.090 UIU/ML 0.400-4.100 = 2821) [id number] 00:00:00 Test Item Value Reference Range Interpretation Comments TSH, THIRD GENERATION (test code 1.090 UIU/ML = 2821) [id number] 00:00:00 Test Item Value Reference Range Interpretation Comments TSH, THIRD GENERATION (test code 1.090 UIU/ML = 2821) [id number] 00:00:00 Test Item Value Reference Range Interpretation Comments TSH, THIRD GENERATION (test code 1.090 UIU/ML = 2821) [id number] 00:00:00 Test Item Value Reference Range Interpretation Comments TSH, THIRD GENERATION (test code 1.090 UIU/ML = 2821) [id number] 00:00:00 Test Item Value Reference Range Interpretation Comments TSH, THIRD GENERATION (test code 1.090 UIU/ML = 2821) [id number] 00:00:00 Test Item Value Reference Range Interpretation Comments TSH, THIRD GENERATION (test code 1.090 UIU/ML = 2821) [id number] 00:00:00 Test Item Value Reference Range Interpretation Comments TSH, THIRD GENERATION (test code 1.090 UIU/ML = 2821) [id number] 00:00:00 Test Item Value Reference Range Interpretation Comments TSH, THIRD GENERATION (test code 1.090 UIU/ML = 2821) [id number] 00:00:00 Test Item Value Reference Range Interpretation Comments TSH, THIRD GENERATION (test code 1.090 UIU/ML = 2821) LIPID [id number] 23:59:41 Test Item Value Reference Range Interpretation [...] MOREINFORMATION , SEE CLIENT ANNOUNCE MENT AT [email or web address] RISK RATIO LDL/HDL 1.79 RATIO <3.22 (test code = 2238) COMPREHENSIVE METABOLIC [id number] 23:59:41 Test Item Value Reference Range Interpretation Comments GLUCOSE (test code = 77 MG/DL 70-99 2216) BUN (test code = 8 MG/DL -2207) CREATININE (test 0.67 MG/DL 0.60-1.30 EFFECTIVE code = 2214) 08/12/2021, [facility] HAS IMPLEMENTED THE NKF-ASN RECOMME NDED KD-EPI EGF R REFIT CALCULATI ON THAT DOES NOT INCLUDE A COEFFICIENT FOR RACE. FOR MORE INFORMATION, SE E ANNOUNCEMENT [email or web address] (2020 CKD-EPI) 122 >60 (test code = 09014) ML/MIN/1.73 CALC BUN/CREAT (test 12 RATIO - code = 2235) SODIUM (test code = 141 MEQ/L 414-000 5502) POTASSIUM (test code 4.0 MEQ/L 3.5-5.4 = 2227) CHLORIDE (test code 102 MEQ/L 95-107 = 2214) CARBON DIOXIDE (test 22 MEQ/L 19-31 code = 2205) CALCIUM (test code = 9.3 MG/DL 8.5-10.5 [...] = 92 U/L 5-40 H 2218) HEMOGLOBIN [id number] 03:14:31 Test Item Value Reference Range Interpretation Comments HEMOGLOBIN A1c (test code = 24074) 6.0 % 4.2-5.6 H CBC W/AUTO DIFF WITH [id number] 03:06:02 Test Item Value Reference Range Interpretation [...] RBCS 0.00 K/UL 0.00-0.11 (test code = 43938) CBC W/AUTO [id number] 00:00:00 Test Item Value Reference Range Interpretation [...] NUCLEATED RBCS (test code = 0.00 K/UL 35579) CBC W/AUTO [id number] 00:00:00 Test Item Value Reference Range Interpretation [...] NUCLEATED RBCS (test code = 0.00 K/UL 73366) CBC W/AUTO [id number] 00:00:00 Test Item Value Reference Range Interpretation [...] NUCLEATED RBCS (test code = 0.00 K/UL 37086) HEMOGLOBIN [id number] 00:00:00 Test Item Value Reference Range Interpretation Comments HEMOGLOBIN A1c (test code = 13050) 6.0 % HEMOGLOBIN [id number] 00:00:00 Test Item Value Reference Range Interpretation Comments HEMOGLOBIN A1c (test code = 32694) 6.0 % HEMOGLOBIN [id number] 00:00:00 Test Item Value Reference Range Interpretation Comments HEMOGLOBIN A1c (test code = 10664) 6.0 % LIPID [id number] 00:00:00 Test Item Value Reference Range Interpretation Comments CHOLESTEROL (test code = 2210) 124 MG/DL TRIGLYCERIDES (test code = 2232) 69 MG/DL HDL CHOLESTEROL (test code = 2220) 39 MG/DL CALC LDL CHOL (test code = 2237) 70 MG/DL RISK RATIO LDL/HDL (test code = 1.79 RATIO 2238) LIPID [id number] 00:00:00 Test Item Value Reference Range Interpretation Comments CHOLESTEROL (test code = 2210) 124 MG/DL TRIGLYCERIDES (test code = 2232) 69 MG/DL HDL CHOLESTEROL (test code = 2220) 39 MG/DL CALC LDL CHOL (test code = 2237) 70 MG/DL RISK RATIO LDL/HDL (test code = 1.79 RATIO 2238) COMPREHENSIVE METABOLIC [id number] 00:00:00 Test Item Value Reference Range Interpretation Comments GLUCOSE (test code = 2217) 77 MG/DL BUN (test code = 2208) 8 MG/DL CREATININE (test code = 2214) 0.67 MG/DL eGFR (2020 CKD-EPI) (test 122 ML/MIN/1.73 code = 06273) CALC BUN/CREAT (test code = 12 RATIO [...] code = 2219) 92 U/L COMPREHENSIVE METABOLIC [id number] 00:00:00 Test Item Value Reference Range Interpretation Comments GLUCOSE (test code = 2217) 77 MG/DL BUN (test code = 2208) 8 MG/DL CREATININE (test code = 2214) 0.67 MG/DL eGFR (2020 CKD-EPI) (test 122 ML/MIN/1.73 code = 35947) CALC BUN/CREAT (test code = 12 RATIO [...] code = 2219) 92 U/L CBC W/AUTO [id number] 00:00:00 Test Item Value Reference Range Interpretation [...] NUCLEATED RBCS (test code = 0.00 K/UL 23468) CBC W/AUTO [id number] 00:00:00 Test Item Value Reference Range Interpretation [...] NUCLEATED RBCS (test code = 0.00 K/UL 30550) CBC W/AUTO [id number] 00:00:00 Test Item Value Reference Range Interpretation [...] NUCLEATED RBCS (test code = 0.00 K/UL 09371) CBC W/AUTO [id number] 00:00:00 Test Item Value Reference Range Interpretation [...] NUCLEATED RBCS (test code = 0.00 K/UL 84305) HEMOGLOBIN [id number] 00:00:00 Test Item Value Reference Range Interpretation Comments HEMOGLOBIN A1c (test code = 35801) 6.0 % HEMOGLOBIN [id number] 00:00:00 Test Item Value Reference Range Interpretation Comments HEMOGLOBIN A1c (test code = 28036) 6.0 % HEMOGLOBIN [id number] 00:00:00 Test Item Value Reference Range Interpretation Comments HEMOGLOBIN A1c (test code = 19321) 6.0 % LIPID [id number] 00:00:00 Test Item Value Reference Range Interpretation Comments CHOLESTEROL (test code = 2210) 124 MG/DL TRIGLYCERIDES (test code = 2232) 69 MG/DL HDL CHOLESTEROL (test code = 2220) 39 MG/DL CALC LDL CHOL (test code = 2237) 70 MG/DL RISK RATIO LDL/HDL (test code = 1.79 RATIO 2238) LIPID [id number] 00:00:00 Test Item Value Reference Range Interpretation Comments CHOLESTEROL (test code = 2210) 124 MG/DL TRIGLYCERIDES (test code = 2232) 69 MG/DL HDL CHOLESTEROL (test code = 2220) 39 MG/DL CALC LDL CHOL (test code = 2237) 70 MG/DL RISK RATIO LDL/HDL (test code = 1.79 RATIO 2238) COMPREHENSIVE METABOLIC [id number] 00:00:00 Test Item Value Reference Range Interpretation Comments GLUCOSE (test code = 2217) 77 MG/DL BUN (test code = 2208) 8 MG/DL CREATININE (test code = 2214) 0.67 MG/DL eGFR (2020 CKD-EPI) (test 122 ML/MIN/1.73 code = 54878) CALC BUN/CREAT (test code = 12 RATIO [...] code = 2219) 92 U/L COMPREHENSIVE METABOLIC [id number] 00:00:00 Test Item Value Reference Range Interpretation Comments GLUCOSE (test code = 2217) 77 MG/DL BUN (test code = 2208) 8 MG/DL CREATININE (test code = 2214) 0.67 MG/DL eGFR (2020 CKD-EPI) (test 122 ML/MIN/1.73 code = 14124) CALC BUN/CREAT (test code = 12 RATIO [...] CALC GLOBULIN (test code = 3.4 G/DL 0) CALC A/G RATIO (test code = 1.2 RATIO 2234) BILIRUBIN, TOTAL (test code = 0.3 MG/DL 2206) ALKALINE PHOSPHATASE (test 56 U/L code = 2204) AST (test code = 2218) 63 U/L ALT (test code = 2219) 92 U/L CBC W/AUTO [id number] 00:00:00 Test Item Value Reference Range Interpretation [...] NUCLEATED RBCS (test code = 0.00 K/UL 68382) CBC W/AUTO [id number] 00:00:00 Test Item Value Reference Range Interpretation [...] NUCLEATED RBCS (test code = 0.00 K/UL 17836) HEMOGLOBIN [id number] 00:00:00 Test Item Value Reference Range Interpretation Comments HEMOGLOBIN A1c (test code = 07350) 6.0 % HEMOGLOBIN [id number] 00:00:00 Test Item Value Reference Range Interpretation Comments HEMOGLOBIN A1c (test code = 80091) 6.0 % HEMOGLOBIN [id number] 00:00:00 Test Item Value Reference Range Interpretation Comments HEMOGLOBIN A1c (test code = 77133) 6.0 % LIPID [id number] 00:00:00 Test Item Value Reference Range Interpretation Comments CHOLESTEROL (test code = 2210) 124 MG/DL TRIGLYCERIDES (test code = 2232) 69 MG/DL HDL CHOLESTEROL (test code = 2220) 39 MG/DL CALC LDL CHOL (test code = 2237) 70 MG/DL RISK RATIO LDL/HDL (test code = 1.79 RATIO 2238) LIPID [id number] 00:00:00 Test Item Value Reference Range Interpretation Comments CHOLESTEROL (test code = 2210) 124 MG/DL TRIGLYCERIDES (test code = 2232) 69 MG/DL HDL CHOLESTEROL (test code = 2220) 39 MG/DL CALC LDL CHOL (test code = 2237) 70 MG/DL RISK RATIO LDL/HDL (test code = 1.79 RATIO 2238) COMPREHENSIVE METABOLIC [id number] 00:00:00 Test Item Value Reference Range Interpretation Comments GLUCOSE (test code = 2217) 77 MG/DL BUN (test code = 2208) 8 MG/DL CREATININE (test code = 2214) 0.67 MG/DL eGFR (2020 CKD-EPI) (test 122 ML/MIN/1.73 code = 41012) CALC BUN/CREAT (test code = 12 RATIO 2235) SODIUM (test code = 2231) 141 MEQ/L POTASSIUM (test code = 2228) 4.0 MEQ/L CHLORIDE (test code = 2215) 102 MEQ/L CARBON DIOXIDE (test code = 22 MEQ/L 2205) CALCIUM (test code = 2209) 9.3 MG/DL PROTEIN, TOTAL (test code = 7.6 G/DL 2228) ALBUMIN (test code = 220) 4.2 G/DL CALC GLOBULIN (test code = 3.4 G/DL 2240) CALC A/G RATIO (test code = 1.2 RATIO 2234) BILIRUBIN, TOTAL (test code = 0.3 MG/DL 2207) ALKALINE PHOSPHATASE (test 56 U/L code = 2204) AST (test code = 2218) 63 U/L ALT (test code = 2219) 92 U/L COMPREHENSIVE METABOLIC [id number] 00:00:00 Test Item Value Reference Range Interpretation Comments GLUCOSE (test code = 2217) 77 MG/DL BUN (test code = 2208) 8 MG/DL CREATININE (test code = 2214) 0.67 MG/DL eGFR (2020 CKD-EPI) (test 122 ML/MIN/1.73 code = 50416) CALC BUN/CREAT (test code = 12 RATIO 2235) SODIUM (test code = 2231) 141 MEQ/L POTASSIUM (test code = 2228) 4.0 MEQ/L CHLORIDE (test code = 2215) 102 MEQ/L CARBON DIOXIDE (test code = 22 MEQ/L 2206) CALCIUM (test code = 2209) 9.3 MG/DL PROTEIN, TOTAL (test code = 7.6 G/DL 9) ALBUMIN (test code = 2201) 4.2 G/DL CALC GLOBULIN (test code = 3.4 G/DL 2240) CALC A/G RATIO (test code = 1.2 RATIO 2234) BILIRUBIN, TOTAL (test code = 0.3 MG/DL 2207) ALKALINE PHOSPHATASE (test 56 U/L code = 2204) AST (test code = 2218) 63 U/L ALT (test code = 2219) 92 U/L MR KNEE LEFT WO [id number] 21:23:01 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 Mild contusion over the medial aspect of the patella which may representsequela from a prior lateral patellofemoral dislocation and relocation. Preliminary Report Dictated by Resident: Alex Noriega MD., have reviewed this study and agree [...] reviewed this study and agree with the abovereport.[facility] 2020-03-16 13:46:56 [...] thePA view. No fracture is appreciated.IMPRESSIONLarge effusion.No fracture.[facility] HospitalHCG, [id number] 00:00:00 Test Item Value Reference Range Interpretation Comments HCG, QUANTITATIVE (test code = <5 MIU/ML 2506) HCG, [id number] 00:00:00 Test Item Value Reference Range Interpretation Comments HCG, QUANTITATIVE (test code = <5 MIU/ML 2506) HCG, [id number] 00:00:00 Test Item Value Reference Range Interpretation Comments HCG, QUANTITATIVE (test code = <5 MIU/ML 2506) HCG, [id number] 00:00:00 Test Item Value Reference Range Interpretation Comments HCG, QUANTITATIVE (test code = <5 MIU/ML 2506) HCG, [id number] 00:00:00 Test Item Value Reference Range Interpretation Comments HCG, QUANTITATIVE (test code = <5 MIU/ML 2506) HCG, [id number] 00:00:00 Test Item Value Reference Range Interpretation Comments HCG, QUANTITATIVE (test code = <5 MIU/ML 2506) HCG, [id number] 00:00:00 Test Item Value Reference Range Interpretation Comments HCG, QUANTITATIVE (test code = <5 MIU/ML 2506) HCG, [id number] 00:00:00 Test Item Value Reference Range Interpretation Comments HCG, QUANTITATIVE (test code = <5 MIU/ML 2506) HCG, [id number] 00:00:00 Test Item Value Reference Range Interpretation Comments HCG, QUANTITATIVE (test code = <5 MIU/ML 2506) HCG, [id number] 00:00:00 Test Item Value Reference Range Interpretation Comments HCG, QUANTITATIVE (test TEST NOT PERFORMED code = 2506) MIU/ML HCG, [id number] 00:00:00 Test Item Value Reference Range Interpretation Comments HCG, QUANTITATIVE (test TEST NOT PERFORMED code = 2506) MIU/ML HCG, [id number] 00:00:00 Test Item Value Reference Range Interpretation Comments HCG, QUANTITATIVE (test TEST NOT PERFORMED code = 2506) MIU/ML HCG, [id number] 00:00:00 Test Item Value Reference Range Interpretation Comments HCG, QUANTITATIVE (test TEST NOT PERFORMED code = 2506) MIU/ML HCG, [id number] 00:00:00 Test Item Value Reference Range Interpretation Comments HCG, QUANTITATIVE (test TEST NOT PERFORMED code = 2506) MIU/ML HCG, [id number] 00:00:00 Test Item Value Reference Range Interpretation Comments HCG, QUANTITATIVE (test TEST NOT PERFORMED code = 2506) MIU/ML HCG, [id number] 00:00:00 Test Item Value Reference Range Interpretation Comments HCG, QUANTITATIVE (test TEST NOT PERFORMED code = 2506) MIU/ML HCG, [id number] 00:00:00 Test Item Value Reference Range Interpretation Comments HCG, QUANTITATIVE (test TEST NOT PERFORMED code = 2506) MIU/ML HCG, [id number] 00:00:00 Test Item Value Reference Range Interpretation Comments HCG, QUANTITATIVE (test TEST NOT PERFORMED code = 2506) MIU/ML CHLAMYDIA, AMPLIFIED, [id number] 00:00:00 Test Item Value Reference Range Interpretation Comments CHLAMYDIA, TMA (test code = 94783) NEGATIVE CHLAMYDIA, AMPLIFIED, [id number] 00:00:00 Test Item Value Reference Range Interpretation Comments CHLAMYDIA, TMA (test code = 69273) NEGATIVE GC, AMPLIFIED, [id number] 00:00:00 Test Item Value Reference Range Interpretation Comments GONORRHEA, TMA (test code = 37298) NEGATIVE GC, AMPLIFIED, [id number] 00:00:00 Test Item Value Reference Range Interpretation Comments GONORRHEA, TMA (test code = 75246) NEGATIVE CHLAMYDIA, AMPLIFIED, [id number] 00:00:00 Test Item Value Reference Range Interpretation Comments CHLAMYDIA, TMA (test code = 32851) NEGATIVE CHLAMYDIA, AMPLIFIED, [id number] 00:00:00 Test Item Value Reference Range Interpretation Comments CHLAMYDIA, TMA (test code = 74520) NEGATIVE GC, AMPLIFIED, [id number] 00:00:00 Test Item Value Reference Range Interpretation Comments GONORRHEA, TMA (test code = 43549) NEGATIVE GC, AMPLIFIED, [id number] 00:00:00 Test Item Value Reference Range Interpretation Comments GONORRHEA, TMA (test code = 01844) NEGATIVE CHLAMYDIA, AMPLIFIED, [id number] 00:00:00 Test Item Value Reference Range Interpretation Comments CHLAMYDIA, TMA (test code = 56313) NEGATIVE CHLAMYDIA, AMPLIFIED, [id number] 00:00:00 Test Item Value Reference Range Interpretation Comments CHLAMYDIA, TMA (test code = 77123) NEGATIVE GC, AMPLIFIED, [id number] 00:00:00 Test Item Value Reference Range Interpretation Comments GONORRHEA, TMA (test code = 43330) NEGATIVE GC, AMPLIFIED, [id number] 00:00:00 Test Item Value Reference Range Interpretation Comments GONORRHEA, TMA (test code = 98218) NEGATIVE HIV AB/AG COMBO RFLX [id number] 00:00:00 Test Item Value Reference Range Interpretation Comments HIV 1/2 4TH GEN, RFLX CONF (test NON-REACTIVE code = 3514) HIV AB/AG COMBO RFLX [id number] 00:00:00 Test Item Value Reference Range Interpretation Comments HIV 1/2 4TH GEN, RFLX CONF (test NON-REACTIVE code = 3514) ACUTE HEPATITIS [id number] 00:00:00 Test Item Value Reference Range Interpretation Comments HEPATITIS A IgM (test code = NON-REACTIVE 55614) HEPATITIS B CORE IgM (test code NON-REACTIVE = 4644) HEPATITIS B SURF AG (test code = NON-REACTIVE 2739) HEPATITIS C ANTIBODY (test code NON-REACTIVE = 4675) INTERPRETATION HEPATITIS A: (NOTE) (test code = 2552) INTERPRETATION HEPATITIS B: (NOTE) (test code = 12443) INTERPRETATION HEPATITIS C: (NOTE) (test code = 48920) ACUTE HEPATITIS [id number] 00:00:00 Test Item Value Reference Range Interpretation Comments HEPATITIS A IgM (test code = NON-REACTIVE 76723) HEPATITIS B CORE IgM (test code NON-REACTIVE = 4644) HEPATITIS B SURF AG (test code = NON-REACTIVE 2739) HEPATITIS C ANTIBODY (test code NON-REACTIVE = 4675) INTERPRETATION HEPATITIS A: (NOTE) (test code = 2552) INTERPRETATION HEPATITIS B: (NOTE) (test code = 62645) INTERPRETATION HEPATITIS C: (NOTE) (test code = 86458) [id number] 00:00:00 Test Item Value Reference Range Interpretation Comments RPR RESULT (test code = NON-REACTIVE 3501) RPR TITER (test code = 3500) NOT INDIC. TITER [id number] 00:00:00 Test Item Value Reference Range Interpretation Comments RPR RESULT (test code = NON-REACTIVE 3501) RPR TITER (test code = 3500) NOT INDIC. TITER [id number] 00:00:00 Test Item Value Reference Range Interpretation Comments RPR RESULT (test code = NON-REACTIVE 3501) RPR TITER (test code = 3500) NOT INDIC. TITER HIV AB/AG COMBO RFLX [id number] 00:00:00 Test Item Value Reference Range Interpretation Comments HIV 1/2 4TH GEN, RFLX CONF (test NON-REACTIVE code = 3514) HIV AB/AG COMBO RFLX [id number] 00:00:00 Test Item Value Reference Range Interpretation Comments HIV 1/2 4TH GEN, RFLX CONF (test NON-REACTIVE code = 3514) HIV AB/AG COMBO RFLX [id number] 00:00:00 Test Item Value Reference Range Interpretation Comments HIV 1/2 4TH GEN, RFLX CONF (test NON-REACTIVE code = 3514) ACUTE HEPATITIS [id number] 00:00:00 Test Item Value Reference Range Interpretation Comments HEPATITIS A IgM (test code = NON-REACTIVE 61087) HEPATITIS B CORE IgM (test code NON-REACTIVE = 4644) HEPATITIS B SURF AG (test code = NON-REACTIVE 2739) HEPATITIS C ANTIBODY (test code NON-REACTIVE = 4675) INTERPRETATION HEPATITIS A: (NOTE) (test code = 2552) INTERPRETATION HEPATITIS B: (NOTE) (test code = 37677) INTERPRETATION HEPATITIS C: (NOTE) (test code = 80270) ACUTE HEPATITIS [id number] 00:00:00 Test Item Value Reference Range Interpretation Comments HEPATITIS A IgM (test code = NON-REACTIVE 13196) HEPATITIS B CORE IgM (test code NON-REACTIVE = 4644) HEPATITIS B SURF AG (test code = NON-REACTIVE 2739) HEPATITIS C ANTIBODY (test code NON-REACTIVE = 4675) INTERPRETATION HEPATITIS A: (NOTE) (test code = 2552) INTERPRETATION HEPATITIS B: (NOTE) (test code = 64700) INTERPRETATION HEPATITIS C: (NOTE) (test code = 09386) [id number] 00:00:00 Test Item Value Reference Range Interpretation Comments RPR RESULT (test code = NON-REACTIVE 3501) RPR TITER (test code = 3500) NOT INDIC. TITER [id number] 00:00:00 Test Item Value Reference Range Interpretation Comments RPR RESULT (test code = NON-REACTIVE 3501) RPR TITER (test code = 3500) NOT INDIC. TITER [id number] 00:00:00 Test Item Value Reference Range Interpretation Comments RPR RESULT (test code = NON-REACTIVE 3501) RPR TITER (test code = 3500) NOT INDIC. TITER HIV AB/AG COMBO RFLX [id number] 00:00:00 Test Item Value Reference Range Interpretation Comments HIV 1/2 4TH GEN, RFLX CONF (test NON-REACTIVE code = 3514) ACUTE HEPATITIS [id number] 00:00:00 Test Item Value Reference Range Interpretation Comments HEPATITIS A IgM (test code = NON-REACTIVE 53384) HEPATITIS B CORE IgM (test code NON-REACTIVE = 4644) HEPATITIS B SURF AG (test code = NON-REACTIVE 2739) HEPATITIS C ANTIBODY (test code NON-REACTIVE = 4675) INTERPRETATION HEPATITIS A: (NOTE) (test code = 2552) INTERPRETATION HEPATITIS B: (NOTE) (test code = 36322) INTERPRETATION HEPATITIS C: (NOTE) (test code = 11993) ACUTE HEPATITIS [id number] 00:00:00 Test Item Value Reference Range Interpretation Comments HEPATITIS A IgM (test code = NON-REACTIVE 77153) HEPATITIS B CORE IgM (test code NON-REACTIVE = 4644) HEPATITIS B SURF AG (test code = NON-REACTIVE 2739) HEPATITIS C ANTIBODY (test code NON-REACTIVE = 4675) INTERPRETATION HEPATITIS A: (NOTE) (test code = 2552) INTERPRETATION HEPATITIS B: (NOTE) (test code = 43158) INTERPRETATION HEPATITIS C: (NOTE) (test code = 68625) [id number] 00:00:00 Test Item Value Reference Range Interpretation Comments RPR RESULT (test code = NON-REACTIVE 3501) RPR TITER (test code = 3500) NOT INDIC. TITER [id number] 00:00:00 Test Item Value Reference Range Interpretation Comments RPR RESULT (test code = NON-REACTIVE 3501) RPR TITER (test code = 3500) NOT INDIC. TITER [id number] 00:00:00 Test Item Value Reference Range Interpretation Comments RPR RESULT (test code = NON-REACTIVE 3501) RPR TITER (test code = 3500) NOT INDIC. TITER HIV AB/AG COMBO RFLX [id number] 00:00:00 Test Item Value Reference Range Interpretation Comments HIV 1/2 4TH GEN, RFLX CONF (test NON-REACTIVE code = 3514) HIV AB/AG COMBO RFLX [id number] 00:00:00 Test Item Value Reference Range Interpretation Comments HIV 1/2 4TH GEN, RFLX CONF (test NON-REACTIVE code = 3514) ACUTE HEPATITIS [id number] 00:00:00 Test Item Value Reference Range Interpretation Comments HEPATITIS A IgM (test code = NON-REACTIVE 67850) HEPATITIS B CORE IgM (test code NON-REACTIVE = 4644) HEPATITIS B SURF AG (test code = NON-REACTIVE 2739) HEPATITIS C ANTIBODY (test code NON-REACTIVE = 4675) HCV INDEX (test code = 66808) 0.13 INTERPRETATION HEPATITIS A: (NOTE) (test code = 2552) INTERPRETATION HEPATITIS B: (NOTE) (test code = 80578) INTERPRETATION HEPATITIS C: (NOTE) (test code = 88292) ACUTE HEPATITIS [id number] 00:00:00 Test Item Value Reference Range Interpretation Comments HEPATITIS A IgM (test code = NON-REACTIVE 14741) HEPATITIS B CORE IgM (test code NON-REACTIVE = 4644) HEPATITIS B SURF AG (test code = NON-REACTIVE 2739) HEPATITIS C ANTIBODY (test code NON-REACTIVE = 4675) HCV INDEX (test code = 43956) 0.13 INTERPRETATION HEPATITIS A: (NOTE) (test code = 2552) INTERPRETATION HEPATITIS B: (NOTE) (test code = 41362) INTERPRETATION HEPATITIS C: (NOTE) (test code = 18384) GC AND CHLAMYDIA, AMPLIFIED, [id number] 00:00:00 Test Item Value Reference Range Interpretation Comments GONORRHEA, TMA (test code = 93162) NEGATIVE CHLAMYDIA, TMA (test code = 19445) NEGATIVE GC AND CHLAMYDIA, AMPLIFIED, [id number] 00:00:00 Test Item Value Reference Range Interpretation Comments GONORRHEA, TMA (test code = 53586) NEGATIVE CHLAMYDIA, TMA (test code = 43789) NEGATIVE [id number] 00:00:00 Test Item Value Reference Range Interpretation Comments RPR RESULT (test code = NON-REACTIVE 3501) RPR TITER (test code = 3500) NOT INDIC. TITER [id number] 00:00:00 Test Item Value Reference Range Interpretation Comments RPR RESULT (test code = NON-REACTIVE 3501) RPR TITER (test code = 3500) NOT INDIC. TITER [id number] 00:00:00 Test Item Value Reference Range Interpretation Comments RPR RESULT (test code = NON-REACTIVE 3501) RPR TITER (test code = 3500) NOT INDIC. TITER HIV AB/AG COMBO RFLX [id number] 00:00:00 Test Item Value Reference Range Interpretation Comments HIV 1/2 4TH GEN, RFLX CONF (test NON-REACTIVE code = 3514) HIV AB/AG COMBO RFLX [id number] 00:00:00 Test Item Value Reference Range Interpretation Comments HIV 1/2 4TH GEN, RFLX CONF (test NON-REACTIVE code = 3514) HIV AB/AG COMBO RFLX [id number] 00:00:00 Test Item Value Reference Range Interpretation Comments HIV 1/2 4TH GEN, RFLX CONF (test NON-REACTIVE code = 3514) ACUTE HEPATITIS [id number] 00:00:00 Test Item Value Reference Range Interpretation Comments HEPATITIS A IgM (test code = NON-REACTIVE 26801) HEPATITIS B CORE IgM (test code NON-REACTIVE = 4644) HEPATITIS B SURF AG (test code = NON-REACTIVE 2739) HEPATITIS C ANTIBODY (test code NON-REACTIVE = 4675) HCV INDEX (test code = 61168) 0.13 INTERPRETATION HEPATITIS A: (NOTE) (test code = 2552) INTERPRETATION HEPATITIS B: (NOTE) (test code = 50936) INTERPRETATION HEPATITIS C: (NOTE) (test code = 12906) ACUTE HEPATITIS [id number] 00:00:00 Test Item Value Reference Range Interpretation Comments HEPATITIS A IgM (test code = NON-REACTIVE 43633) HEPATITIS B CORE IgM (test code NON-REACTIVE = 4644) HEPATITIS B SURF AG (test code = NON-REACTIVE 2739) HEPATITIS C ANTIBODY (test code NON-REACTIVE = 4675) HCV INDEX (test code = 46484) 0.13 INTERPRETATION HEPATITIS A: (NOTE) (test code = 2552) INTERPRETATION HEPATITIS B: (NOTE) (test code = 78239) INTERPRETATION HEPATITIS C: (NOTE) (test code = 15684) HIV AB/AG COMBO RFLX [id number] 00:00:00 Test Item Value Reference Range Interpretation Comments HIV 1/2 4TH GEN, RFLX CONF (test NON-REACTIVE code = 3514) GC AND CHLAMYDIA, AMPLIFIED, [id number] 00:00:00 Test Item Value Reference Range Interpretation Comments GONORRHEA, TMA (test code = 84377) NEGATIVE CHLAMYDIA, TMA (test code = 55070) NEGATIVE GC AND CHLAMYDIA, AMPLIFIED, [id number] 00:00:00 Test Item Value Reference Range Interpretation Comments GONORRHEA, TMA (test code = 30309) NEGATIVE CHLAMYDIA, TMA (test code = 37535) NEGATIVE [id number] 00:00:00 Test Item Value Reference Range Interpretation Comments RPR RESULT (test code = NON-REACTIVE 3501) RPR TITER (test code = 3500) NOT INDIC. TITER [id number] 00:00:00 Test Item Value Reference Range Interpretation Comments RPR RESULT (test code = NON-REACTIVE 3501) RPR TITER (test code = 3500) NOT INDIC. TITER [id number] 00:00:00 Test Item Value Reference Range Interpretation Comments RPR RESULT (test code = NON-REACTIVE 3501) RPR TITER (test code = 3500) NOT INDIC. TITER ACUTE HEPATITIS [id number] 00:00:00 Test Item Value Reference Range Interpretation Comments HEPATITIS A IgM (test code = NON-REACTIVE 17360) HEPATITIS B CORE IgM (test code NON-REACTIVE = 4644) HEPATITIS B SURF AG (test code = NON-REACTIVE 2739) HEPATITIS C ANTIBODY (test code NON-REACTIVE = 4675) HCV INDEX (test code = 90171) 0.13 INTERPRETATION HEPATITIS A: (NOTE) (test code = 2552) INTERPRETATION HEPATITIS B: (NOTE) (test code = 20186) INTERPRETATION HEPATITIS C: (NOTE) (test code = 38637) ACUTE HEPATITIS [id number] 00:00:00 Test Item Value Reference Range Interpretation Comments HEPATITIS A IgM (test code = NON-REACTIVE 83966) HEPATITIS B CORE IgM (test code NON-REACTIVE = 4644) HEPATITIS B SURF AG (test code = NON-REACTIVE 2739) HEPATITIS C ANTIBODY (test code NON-REACTIVE = 4675) HCV INDEX (test code = 87032) 0.13 INTERPRETATION HEPATITIS A: (NOTE) (test code = 2552) INTERPRETATION HEPATITIS B: (NOTE) (test code = 74770) INTERPRETATION HEPATITIS C: (NOTE) (test code = 78107) GC AND CHLAMYDIA, AMPLIFIED, [id number] 00:00:00 Test Item Value Reference Range Interpretation Comments GONORRHEA, TMA (test code = 46879) NEGATIVE CHLAMYDIA, TMA (test code = 17059) NEGATIVE GC AND CHLAMYDIA, AMPLIFIED, [id number] 00:00:00 Test Item Value Reference Range Interpretation Comments GONORRHEA, TMA (test code = 21954) NEGATIVE CHLAMYDIA, TMA (test code = 67732) NEGATIVE [id number] 00:00:00 Test Item Value Reference Range Interpretation Comments RPR RESULT (test code = NON-REACTIVE 3501) RPR TITER (test code = 3500) NOT INDIC. TITER [id number] 00:00:00 Test Item Value Reference Range Interpretation Comments RPR RESULT (test code = NON-REACTIVE 3501) RPR TITER (test code = 3500) NOT INDIC. TITER [id number] 00:00:00 Test Item Value Reference Range Interpretation Comments RPR RESULT (test code = NON-REACTIVE 3501) RPR TITER (test code = 3500) NOT INDIC. TITER [id number] 00:00:00 Test Item Value Reference Range Interpretation Comments RPR RESULT (test code = NON-REACTIVE 3501) RPR TITER (test code = 3500) NOT INDIC. TITER [id number] 00:00:00 Test Item Value Reference Range Interpretation Comments RPR RESULT (test code = NON-REACTIVE 3501) RPR TITER (test code = 3500) NOT INDIC. TITER [id number] 00:00:00 Test Item Value Reference Range Interpretation Comments RPR RESULT (test code = NON-REACTIVE 3501) RPR TITER (test code = 3500) NOT INDIC. TITER HIV AB/AG COMBO RFLX [id number] 00:00:00 Test Item Value Reference Range Interpretation Comments HIV 1/2 4TH GEN, RFLX CONF (test NON-REACTIVE code = 3514) HIV AB/AG COMBO RFLX [id number] 00:00:00 Test Item Value Reference Range Interpretation Comments HIV 1/2 4TH GEN, RFLX CONF (test NON-REACTIVE code = 3514) [id number] 00:00:00 Test Item Value Reference Range Interpretation Comments RPR RESULT (test code = NON-REACTIVE 3501) RPR TITER (test code = 3500) NOT INDIC. TITER [id number] 00:00:00 Test Item Value Reference Range Interpretation Comments RPR RESULT (test code = NON-REACTIVE 3501) RPR TITER (test code = 3500) NOT INDIC. TITER [id number] 00:00:00 Test Item Value Reference Range Interpretation Comments RPR RESULT (test code = NON-REACTIVE 3501) RPR TITER (test code = 3500) NOT INDIC. TITER [id number] 00:00:00 Test Item Value Reference Range Interpretation Comments RPR RESULT (test code = NON-REACTIVE 3501) RPR TITER (test code = 3500) NOT INDIC. TITER HIV AB/AG COMBO RFLX [id number] 00:00:00 Test Item Value Reference Range Interpretation Comments HIV 1/2 4TH GEN, RFLX CONF (test NON-REACTIVE code = 3514) HIV AB/AG COMBO RFLX [id number] 00:00:00 Test Item Value Reference Range Interpretation Comments HIV 1/2 4TH GEN, RFLX CONF (test NON-REACTIVE code = 3514) [id number] 00:00:00 Test Item Value Reference Range Interpretation Comments RPR RESULT (test code = NON-REACTIVE 3501) RPR TITER (test code = 3500) NOT INDIC. TITER [id number] 00:00:00 Test Item Value Reference Range Interpretation Comments RPR RESULT (test code = NON-REACTIVE 3501) RPR TITER (test code = 3500) NOT INDIC. TITER HIV AB/AG COMBO RFLX [id number] 00:00:00 Test Item Value Reference Range Interpretation Comments HIV 1/2 4TH GEN, RFLX CONF (test NON-REACTIVE code = 3514) HIV AB/AG COMBO RFLX [id number] 00:00:00 Test Item Value Reference Range Interpretation Comments HIV 1/2 4TH GEN, RFLX CONF (test NON-REACTIVE code = 3514) GC AND CHLAMYDIA, AMPLIFIED, [id number] 00:00:00 Test Item Value Reference Range Interpretation Comments GONORRHEA, TMA (test code = 61941) NEGATIVE CHLAMYDIA, TMA (test code = 14635) NEGATIVE GC AND CHLAMYDIA, AMPLIFIED, [id number] 00:00:00 Test Item Value Reference Range Interpretation Comments GONORRHEA, TMA (test code = 18323) NEGATIVE CHLAMYDIA, TMA (test code = 68860) NEGATIVE GC AND CHLAMYDIA, AMPLIFIED, [id number] 00:00:00 Test Item Value Reference Range Interpretation Comments GONORRHEA, TMA (test code = 12751) NEGATIVE CHLAMYDIA, TMA (test code = 21615) NEGATIVE GC AND CHLAMYDIA, AMPLIFIED, [id number] 00:00:00 Test Item Value Reference Range Interpretation Comments GONORRHEA, TMA (test code = 03418) NEGATIVE CHLAMYDIA, TMA (test code = 92177) NEGATIVE GC AND CHLAMYDIA, AMPLIFIED, [id number] 00:00:00 Test Item Value Reference Range Interpretation Comments GONORRHEA, TMA (test code = 96245) NEGATIVE CHLAMYDIA, TMA (test code = 97229) NEGATIVE GC AND CHLAMYDIA, AMPLIFIED, [id number] 00:00:00 Test Item Value Reference Range Interpretation Comments GONORRHEA, TMA (test code = 66481) NEGATIVE CHLAMYDIA, TMA (test code = 97865) NEGATIVE COMPREHENSIVE METABOLIC [id number] 00:00:00 Test Item Value Reference Range Interpretation Comments GLUCOSE (test code = 2217) 127 MG/DL BUN (test code = 2208) 5 MG/DL CREATININE (test code = 2214) 0.58 MG/DL eGFR AMER. (test code 148 ML/MIN/1.73 = 57861) eGFR NON- AMER. (test 128 ML/MIN/1.73 code = 23957) CALC BUN/CREAT (test code = 9 RATIO [...] code = 2219) 18 U/L COMPREHENSIVE METABOLIC [id number] 00:00:00 Test Item Value Reference Range Interpretation Comments GLUCOSE (test code = 2217) 127 MG/DL BUN (test code = 2208) 5 MG/DL CREATININE (test code = 2214) 0.58 MG/DL eGFR AMER. (test code 148 ML/MIN/1.73 = 14618) eGFR NON- AMER. (test 128 ML/MIN/1.73 code = 24535) CALC BUN/CREAT (test code = 9 RATIO [...] (test code = 2219) 18 U/L LIPID [id number] 00:00:00 Test Item Value Reference Range Interpretation Comments CHOLESTEROL (test code = 2210) 186 MG/DL TRIGLYCERIDES (test code = 2232) 106 MG/DL HDL CHOLESTEROL (test code = 2220) 54 MG/DL CALC LDL CHOL (test code = 2237) 111 MG/DL RISK RATIO LDL/HDL (test code = 2.05 RATIO 2238) LIPID [id number] 00:00:00 Test Item Value Reference Range Interpretation Comments CHOLESTEROL (test code = 2210) 186 MG/DL TRIGLYCERIDES (test code = 2232) 106 MG/DL HDL CHOLESTEROL (test code = 2220) 54 MG/DL CALC LDL CHOL (test code = 2237) 111 MG/DL RISK RATIO LDL/HDL (test code = 2.05 RATIO 2238) COMPREHENSIVE METABOLIC [id number] 00:00:00 Test Item Value Reference Range Interpretation Comments GLUCOSE (test code = 2217) 127 MG/DL BUN (test code = 2208) 5 MG/DL CREATININE (test code = 2214) 0.58 MG/DL eGFR AMER. (test code 148 ML/MIN/1.73 = 88226) eGFR NON- AMER. (test 128 ML/MIN/1.73 code = 95264) CALC BUN/CREAT (test code = 9 RATIO [...] code = 2219) 18 U/L COMPREHENSIVE METABOLIC [id number] 00:00:00 Test Item Value Reference Range Interpretation Comments GLUCOSE (test code = 2217) 127 MG/DL BUN (test code = 2208) 5 MG/DL CREATININE (test code = 2214) 0.58 MG/DL eGFR AMER. (test code 148 ML/MIN/1.73 = 97508) eGFR NON- AMER. (test 128 ML/MIN/1.73 code = 09048) CALC BUN/CREAT (test code = 9 RATIO [...] code = 2219) 18 U/L COMPREHENSIVE METABOLIC [id number] 00:00:00 Test Item Value Reference Range Interpretation Comments GLUCOSE (test code = 2217) 127 MG/DL BUN (test code = 2208) 5 MG/DL CREATININE (test code = 2214) 0.58 MG/DL eGFR AMER. (test code 148 ML/MIN/1.73 = 39414) eGFR NON- AMER. (test 128 ML/MIN/1.73 code = 88226) CALC BUN/CREAT (test code = 9 RATIO [...] CALC GLOBULIN (test code = 3.8 G/DL 2239) CALC A/G RATIO (test code = 1.1 RATIO 2233) BILIRUBIN, TOTAL (test code = 0.4 MG/DL 2206) ALKALINE PHOSPHATASE (test 83 U/L code = 2204) AST (test code = 2218) 21 U/L ALT (test code = 2219) 18 U/L LIPID [id number] 00:00:00 Test Item Value Reference Range Interpretation Comments CHOLESTEROL (test code = 2210) 186 MG/DL TRIGLYCERIDES (test code = 2232) 106 MG/DL HDL CHOLESTEROL (test code = 2220) 54 MG/DL CALC LDL CHOL (test code = 2237) 111 MG/DL RISK RATIO LDL/HDL (test code = 2.05 RATIO 2238) LIPID [id number] 00:00:00 Test Item Value Reference Range Interpretation Comments CHOLESTEROL (test code = 2210) 186 MG/DL TRIGLYCERIDES (test code = 2232) 106 MG/DL HDL CHOLESTEROL (test code = 2220) 54 MG/DL CALC LDL CHOL (test code = 2237) 111 MG/DL RISK RATIO LDL/HDL (test code = 2.05 RATIO 2238) COMPREHENSIVE METABOLIC [id number] 00:00:00 Test Item Value Reference Range Interpretation Comments GLUCOSE (test code = 2217) 127 MG/DL BUN (test code = 2208) 5 MG/DL CREATININE (test code = 2214) 0.58 MG/DL eGFR AMER. (test code 148 ML/MIN/1.73 = 10932) eGFR NON- AMER. (test 128 ML/MIN/1.73 code = 63114) CALC BUN/CREAT (test code = 9 RATIO [...] (test code = 2219) 18 U/L LIPID [id number] 00:00:00 Test Item Value Reference Range Interpretation Comments CHOLESTEROL (test code = 2210) 186 MG/DL TRIGLYCERIDES (test code = 2232) 106 MG/DL HDL CHOLESTEROL (test code = 2220) 54 MG/DL CALC LDL CHOL (test code = 2237) 111 MG/DL RISK RATIO LDL/HDL (test code = 2.05 RATIO 2238) LIPID [id number] 00:00:00 Test Item Value Reference Range Interpretation Comments CHOLESTEROL (test code = 2210) 186 MG/DL TRIGLYCERIDES (test code = 2232) 106 MG/DL HDL CHOLESTEROL (test code = 2220) 54 MG/DL CALC LDL CHOL (test code = 2237) 111 MG/DL RISK RATIO LDL/HDL (test code = 2.05 RATIO 2238) GC AND CHLAMYDIA, AMPLIFIED, [id number] 00:00:00 Test Item Value Reference Range Interpretation Comments GONORRHEA, TMA (test code = 45496) NEGATIVE CHLAMYDIA, TMA (test code = 65318) NEGATIVE GC AND CHLAMYDIA, AMPLIFIED, [id number] 00:00:00 Test Item Value Reference Range Interpretation Comments GONORRHEA, TMA (test code = 00275) NEGATIVE CHLAMYDIA, TMA (test code = 36114) NEGATIVE GC AND CHLAMYDIA, AMPLIFIED, [id number] 00:00:00 Test Item Value Reference Range Interpretation Comments GONORRHEA, TMA (test code = 94242) NEGATIVE CHLAMYDIA, TMA (test code = 19789) NEGATIVE GC AND CHLAMYDIA, AMPLIFIED, [id number] 00:00:00 Test Item Value Reference Range Interpretation Comments GONORRHEA, TMA (test code = 76509) NEGATIVE CHLAMYDIA, TMA (test code = 39545) NEGATIVE GC AND CHLAMYDIA, AMPLIFIED, [id number] 00:00:00 Test Item Value Reference Range Interpretation Comments GONORRHEA, TMA (test code = 28303) NEGATIVE CHLAMYDIA, TMA (test code = 71376) NEGATIVE GC AND CHLAMYDIA, AMPLIFIED, [id number] 00:00:00 Test Item Value Reference Range Interpretation Comments GONORRHEA, TMA (test code = 35788) NEGATIVE CHLAMYDIA, TMA (test code = 70948) NEGATIVE VAGINAL PATHOGENS DNA [id number] 00:00:00 Test Item Value Reference Range Interpretation Comments YOKO SPECIES (test code = ) POSITIVE G. VAGINALIS (test code = 22699) NEGATIVE T. VAGINALIS (test code = 54558) NEGATIVE VAGINAL PATHOGENS DNA [id number] 00:00:00 Test Item Value Reference Range Interpretation Comments YOKO SPECIES (test code = 09175) POSITIVE G. VAGINALIS (test code = 63523) NEGATIVE T. VAGINALIS (test code = 89328) NEGATIVE VAGINAL PATHOGENS DNA [id number] 00:00:00 Test Item Value Reference Range Interpretation Comments YOKO SPECIES (test code = 99826) POSITIVE G. VAGINALIS (test code = 72322) NEGATIVE T. VAGINALIS (test code = 53666) NEGATIVE VAGINAL PATHOGENS DNA [id number] 00:00:00 Test Item Value Reference Range Interpretation Comments YOKO SPECIES (test code = 00079) POSITIVE G. VAGINALIS (test code = 65820) NEGATIVE T. VAGINALIS (test code = 94068) NEGATIVE VAGINAL PATHOGENS DNA [id number] 00:00:00 Test Item Value Reference Range Interpretation Comments YOKO SPECIES (test code = 86530) POSITIVE G. VAGINALIS (test code = 62067) NEGATIVE T. VAGINALIS (test code = 02861) NEGATIVE VAGINAL PATHOGENS DNA [id number] 00:00:00 Test Item Value Reference Range Interpretation Comments YOKO SPECIES (test code = 68517) POSITIVE G. VAGINALIS (test code = ) NEGATIVE T. VAGINALIS (test code = ) NEGATIVE GC AND CHLAMYDIA, AMPLIFIED, [id number] 00:00:00 Test Item Value Reference Range Interpretation Comments GONORRHEA, TMA (test code = 89681) NEGATIVE CHLAMYDIA, TMA (test code = 70911) NEGATIVE GC AND CHLAMYDIA, AMPLIFIED, [id number] 00:00:00 Test Item Value Reference Range Interpretation Comments GONORRHEA, TMA (test code = 93742) NEGATIVE CHLAMYDIA, TMA (test code = 36440) NEGATIVE GC AND CHLAMYDIA, AMPLIFIED, [id number] 00:00:00 Test Item Value Reference Range Interpretation Comments GONORRHEA, TMA (test code = 58904) NEGATIVE CHLAMYDIA, TMA (test code = 61513) NEGATIVE GC AND CHLAMYDIA, AMPLIFIED, [id number] 00:00:00 Test Item Value Reference Range Interpretation Comments GONORRHEA, TMA (test code = 19998) NEGATIVE CHLAMYDIA, TMA (test code = 07733) NEGATIVE GC AND CHLAMYDIA, AMPLIFIED, [id number] 00:00:00 Test Item Value Reference Range Interpretation Comments GONORRHEA, TMA (test code = 51786) NEGATIVE CHLAMYDIA, TMA (test code = 83858) NEGATIVE GC AND CHLAMYDIA, AMPLIFIED, [id number] 00:00:00 Test Item Value Reference Range Interpretation Comments GONORRHEA, TMA (test code = 48854) NEGATIVE CHLAMYDIA, TMA (test code = 99246) NEGATIVE CULTURE, [id number] 00:00:00 Test Item Value Reference Range Interpretation Comments CULTURE, URINE (test SPECIMEN NUMBER: code = 88361) [id number] CULTURE, [id number] 00:00:00 Test Item Value Reference Range Interpretation Comments CULTURE, URINE (test SPECIMEN NUMBER: code = 85834) [id number] CULTURE, [id number] 00:00:00 Test Item Value Reference Range Interpretation Comments CULTURE, URINE (test SPECIMEN NUMBER: code = 02120) [id number] CULTURE, [id number] 00:00:00 Test Item Value Reference Range Interpretation Comments CULTURE, URINE (test SPECIMEN NUMBER: code = 40563) [id number] CULTURE, [id number] 00:00:00 Test Item Value Reference Range Interpretation Comments CULTURE, URINE (test SPECIMEN NUMBER: code = 11631) [id number] CULTURE, [id number] 00:00:00 Test Item Value Reference Range Interpretation Comments CULTURE, URINE (test SPECIMEN NUMBER: code = 06664) [id number] HEMOGLOBIN [id number] 00:00:00 Test Item Value Reference Range Interpretation Comments HEMOGLOBIN A1c (test code = 82259) 5.5 % HEMOGLOBIN [id number] 00:00:00 Test Item Value Reference Range Interpretation Comments HEMOGLOBIN A1c (test code = 36381) 5.5 % HEMOGLOBIN [id number] 00:00:00 Test Item Value Reference Range Interpretation Comments HEMOGLOBIN A1c (test code = 92023) 5.5 % CBC W/AUTO [id number] 00:00:00 Test Item Value Reference Range Interpretation [...] code = 1015) 310 K/UL CBC W/AUTO [id number] 00:00:00 Test Item Value Reference Range Interpretation [...] code = 1015) 310 K/UL CBC W/AUTO [id number] 00:00:00 Test Item Value Reference Range Interpretation [...] code = 1015) 310 K/UL COMPREHENSIVE METABOLIC [id number] 00:00:00 Test Item Value Reference Range Interpretation Comments GLUCOSE (test code = 2217) 73 MG/DL BUN (test code = 2208) 10 MG/DL CREATININE (test code = 2214) 0.51 MG/DL eGFR AMER. (test code 158 ML/MIN/1.73 = 76165) eGFR NON- AMER. (test 136 ML/MIN/1.73 code = 43688) CALCULATED BUN/CREAT (test 20 RATIO code = [...] code = 2219) 23 U/L COMPREHENSIVE METABOLIC [id number] 00:00:00 Test Item Value Reference Range Interpretation Comments GLUCOSE (test code = 2217) 73 MG/DL BUN (test code = 2208) 10 MG/DL CREATININE (test code = 2214) 0.51 MG/DL eGFR AMER. (test code 158 ML/MIN/1.73 = 47180) eGFR NON- AMER. (test 136 ML/MIN/1.73 code = 69261) CALCULATED BUN/CREAT (test 20 RATIO code = [...] (test code = 2219) 23 U/L LIPID [id number] 00:00:00 Test Item Value Reference Range Interpretation Comments CHOLESTEROL (test code = 2210) 167 MG/DL TRIGLYCERIDES (test code = 2232) 109 MG/DL HDL CHOLESTEROL (test code = 2220) 58 MG/DL CALCULATED LDL CHOL (test code = 87 MG/DL 2236) RISK RATIO LDL/HDL (test code = 1.50 RATIO 2237) LIPID [id number] 00:00:00 Test Item Value Reference Range Interpretation [...] (test code = 2821) 1.5 UIU/ML HEMOGLOBIN [id number] 00:00:00 Test Item Value Reference Range Interpretation Comments HEMOGLOBIN A1c (test code = 20842) 5.5 % HEMOGLOBIN [id number] 00:00:00 Test Item Value Reference Range Interpretation Comments HEMOGLOBIN A1c (test code = 95628) 5.5 % HEMOGLOBIN [id number] 00:00:00 Test Item Value Reference Range Interpretation Comments HEMOGLOBIN A1c (test code = 13045) 5.5 % HEMOGLOBIN [id number] 00:00:00 Test Item Value Reference Range Interpretation Comments HEMOGLOBIN A1c (test code = 81962) 5.5 % HEMOGLOBIN [id number] 00:00:00 Test Item Value Reference Range Interpretation Comments HEMOGLOBIN A1c (test code = 36013) 5.5 % CBC W/AUTO [id number] 00:00:00 Test Item Value Reference Range Interpretation [...] code = 1015) 310 K/UL CBC W/AUTO [id number] 00:00:00 Test Item Value Reference Range Interpretation [...] code = 1015) 310 K/UL CBC W/AUTO [id number] 00:00:00 Test Item Value Reference Range Interpretation [...] code = 1015) 310 K/UL COMPREHENSIVE METABOLIC [id number] 00:00:00 Test Item Value Reference Range Interpretation Comments GLUCOSE (test code = 2217) 73 MG/DL BUN (test code = 2208) 10 MG/DL CREATININE (test code = 2214) 0.51 MG/DL eGFR AMER. (test code 158 ML/MIN/1.73 = 58687) eGFR NON- AMER. (test 136 ML/MIN/1.73 code = 18007) CALCULATED BUN/CREAT (test 20 RATIO code = [...] code = 2219) 23 U/L COMPREHENSIVE METABOLIC [id number] 00:00:00 Test Item Value Reference Range Interpretation Comments GLUCOSE (test code = 2217) 73 MG/DL BUN (test code = 2208) 10 MG/DL CREATININE (test code = 2214) 0.51 MG/DL eGFR AMER. (test code 158 ML/MIN/1.73 = 62572) eGFR NON- AMER. (test 136 ML/MIN/1.73 code = 39781) CALCULATED BUN/CREAT (test 20 RATIO code = [...] (test code = 2219) 23 U/L LIPID [id number] 00:00:00 Test Item Value Reference Range Interpretation Comments CHOLESTEROL (test code = 2210) 167 MG/DL TRIGLYCERIDES (test code = 2232) 109 MG/DL HDL CHOLESTEROL (test code = 2220) 58 MG/DL CALCULATED LDL CHOL (test code = 87 MG/DL 2237) RISK RATIO LDL/HDL (test code = 1.50 RATIO 2238) LIPID [id number] 00:00:00 Test Item Value Reference Range Interpretation [...] (test code = 2821) 1.5 UIU/ML HEMOGLOBIN [id number] 00:00:00 Test Item Value Reference Range Interpretation Comments HEMOGLOBIN A1c (test code = 70830) 5.5 % CBC W/AUTO [id number] 00:00:00 Test Item Value Reference Range Interpretation [...] code = 1015) 310 K/UL CBC W/AUTO [id number] 00:00:00 Test Item Value Reference Range Interpretation [...] code = 1015) 310 K/UL CBC W/AUTO [id number] 00:00:00 Test Item Value Reference Range Interpretation [...] code = 1015) 310 K/UL COMPREHENSIVE METABOLIC [id number] 00:00:00 Test Item Value Reference Range Interpretation Comments GLUCOSE (test code = 2217) 73 MG/DL BUN (test code = 2208) 10 MG/DL CREATININE (test code = 2214) 0.51 MG/DL eGFR AMER. (test code 158 ML/MIN/1.73 = 57079) eGFR NON- AMER. (test 136 ML/MIN/1.73 code = 83245) CALCULATED BUN/CREAT (test 20 RATIO code = 2235) SODIUM (test code = 2231) 136 MEQ/L POTASSIUM (test code = 2228) 4.1 MEQ/L CHLORIDE (test code = 2215) 102 MEQ/L CARBON DIOXIDE (test code = 21 MEQ/L 220) CALCIUM (test code = 2209) 9.8 MG/DL PROTEIN, TOTAL (test code = 8.0 G/DL 2228) ALBUMIN (test code = 2201) 4.3 G/DL CALCULATED GLOBULIN (test 3.7 G/DL code = 2240) CALCULATED A/G RATIO (test 1.2 RATIO code = 2234) BILIRUBIN, TOTAL (test code = 0.4 MG/DL 220) ALKALINE PHOSPHATASE (test 54 U/L code = 2204) SGOT (AST) (test code = 2218) 21 U/L SGPT (ALT) (test code = 2219) 23 U/L COMPREHENSIVE METABOLIC [id number] 00:00:00 Test Item Value Reference Range Interpretation Comments GLUCOSE (test code = 2217) 73 MG/DL BUN (test code = 2208) 10 MG/DL CREATININE (test code = 2214) 0.51 MG/DL eGFR AMER. (test code 158 ML/MIN/1.73 = 90399) eGFR NON- AMER. (test 136 ML/MIN/1.73 code = 87431) CALCULATED BUN/CREAT (test 20 RATIO code = [...] (test code = 2219) 23 U/L LIPID [id number] 00:00:00 Test Item Value Reference Range Interpretation Comments CHOLESTEROL (test code = 2210) 167 MG/DL TRIGLYCERIDES (test code = 2232) 109 MG/DL HDL CHOLESTEROL (test code = 2220) 58 MG/DL CALCULATED LDL CHOL (test code = 87 MG/DL 2237) RISK RATIO LDL/HDL (test code = 1.50 RATIO 2238) LIPID [id number] 00:00:00 Test Item Value Reference Range Interpretation [...]
[2022-11-07 18:03] LABS: Hematocrit 33.2 % (36.0-45.0); Lymphocytes % 25.2 % (15.3-44.8); MCV 73.8 fL (80-100); MPV 8.3 fL (7.6-11.3)
[2022-11-07 18:21] LABS: Protime INR 1.18
[2022-11-07 18:39] LABS: ALT/SGPT 22 U/L (13-56); AST/SGOT 12 U/L (15-37); Albumin 3.4 g/dL (3.4-5.0); Alkaline Phosphatase 47 U/L (45-117); BUN Blood Urea Nitrogen 7 mg/dL (7-18); Bicarbonate 23 mmol/L (21-32); Bilirubin Direct 0.1 mg/dL (0-0.2); Bilirubin Total 0.3 mg/dL (0.2-1.0); Glomerular Filtration Rate 120 ml/min (=/>90); Glucose Level 89 mg/dL (74-106); Potassium 3.2 mmol/L (3.5-5.1); Protein, Total 7.9 g/dL (6.4-8.2); Sodium Level 137 mmol/L (136-145)
[2022-11-07 19:02] LABS: SARS-COV-2 RT PCR NEGATIVE (NEGATIVE)
[2022-11-07] MEDS ORDERED: POTASSIUM CL SA 10 MEQ TAB PO ONE (19:26)
[2022-11-07] MEDS ORDERED: HYDROCODONE/APAP 5/325 MG TAB ONE (19:26)
[2022-11-07 21:00] LABS: Urine Blood Trace-intact (Negative); Urine Glucose Negative (Negative); Urine Protein Negative (Negative); Urine Specific Gravity 1.015 (1.005-1.030)
[2022-11-07 21:17] LABS: Barbiturates NEGATIVE (NEGATIVE); Benzodiazepines NEGATIVE (NEGATIVE); Cocaine NEGATIVE (NEGATIVE); METHAMPHETAM NEGATIVE (NEGATIVE); Methadone NEGATIVE (NEGATIVE); Opiates NEGATIVE (NEGATIVE); Phencyclidine NEGATIVE (NEGATIVE); THC Cannibis NEGATIVE (NEGATIVE)
[2022-11-07 22:12] LABS: Urine Specific Gravity/Preg 1.015 (1.005-1.030)
[2022-11-08 04:06] VITALS: TEMP 98.4
[2022-11-08 04:11] VITALS: BP 138/99; O2SAT 99
--- NOTE | 2022-11-10 13:11 | EKG ---
Test Date: 2022-11-07 Test Time: 19:10:37 Emergency Specialist: MIRLANDE MEASUREMENT RESULTS: Intervals: Rate: 75 CO: 174 QRSD: 88 QT: 390 QTc: 435 [place]: P: 12 CO: 174 QRS: 13 T: -11 INTERPRETIVE STATEMENTS: Normal sinus rhythm with sinus arrhythmia Minimal voltage criteria for LVH, may be normal variant Anterior infarct, age undetermined Abnormal ECG Compared to ECG 10/13/2022 13:02:05 Left ventricular hypertrophy now present Myocardial infarct finding now present T-wave abnormality no longer present Possible ischemia no longer present Electronically Signed On 11-10-22 13:06:11 CDT by Parmjit Yepez
--- NOTE | 2022-11-21 16:18 | EDPHYS ---
Physician Documentation [facility] Name: Taylor Rodriguez Age: 27 yrs Sex: Female : 1995 Arrival Date: 11/07/2022 Time: 17:18 Bed 2 Private MD: ED Physician Last Barrientos HPI: 11/07 18:53 This 27 yrs old Black Female presents to ER via EMS with complaints of "cold feeling rn inside". 18:53 The patient presents with anxiety. Onset: The symptoms/episode began/occurred this rn morning. Possible causes: unknown. Current symptoms: In the emergency department the patient's symptoms have improved. The patient has experienced similar episodes in the past. The patient has not recently seen a physician. Pt reports palpitations and feeling anxious, happened earlier while watching netflix. Has history of anxiety. Takes her medication without recent medication changes. Began to feel "cold inside", no seizure, no chest pain. Has fibromyalgia. EMS reports patient tearful and "had a fit" in back of ambulance. Now much more calm and feeling better. Denies ingestion. . Historical: - Allergies: 17:30 Naproxen; ap3 - Home Meds: 17:30 aripiprazole oral [Active]; duloxetine oral [Active]; Ferrous Sulfate Oral [Active]; ap3 gabapentin oral [Active]; Hydroxyzine Oral [Active]; losartan oral [Active]; propranolol Oral [Active]; Tramadol Oral [Active]; Trazodone Oral [Active]; Zofran Oral [Active]; - PMHx: 17:30 Anxiety; Depression; Fibromyalgia; High Blood Pressure; Schizophrenia; ap3 - Immunization history:: Client reports receiving the 2nd dose of the Covid vaccine. - Social history:: Smoking status: Patient reports the use of cigarette tobacco products, denies chronic smoking, but will smoke occasionally, Patient uses alcohol, occasionally. - Family history:: not pertinent. - Hospitalizations: : No recent hospitalization is reported. ROS: 18:53 Constitutional: Negative for fever, chills, and weight loss, Cardiovascular: Negative rn for chest pain, and edema, Respiratory: Negative for cough, wheezing, and pleuritic chest pain, Abdomen/GI: Negative for abdominal pain, nausea, vomiting, diarrhea, and constipation, Back: Negative for injury and pain, MS/Extremity: Negative for injury and deformity, Skin: Negative for injury, rash, and discoloration, Neuro: Negative for headache, weakness, numbness, tingling, and seizure. Exam: 18:53 Constitutional: This is a well developed, well nourished patient who is awake, alert, rn appears very anxious Head/Face: Normocephalic, atraumatic. Eyes: Pupils equal round and reactive to light, extra-ocular motions intact. Lids and lashes normal. Conjunctiva and sclera are non-icteric and not injected. Cornea within normal limits. Periorbital areas with no swelling, redness, or edema. Cardiovascular: Regular rate and rhythm with a normal S1 and S2. No gallops, murmurs, or rubs. Normal PMI, no JVD. No pulse deficits. Respiratory: Lungs have equal breath sounds bilaterally, clear to auscultation and percussion. No rales, rhonchi or wheezes noted. No increased work of breathing, no retractions or nasal flaring. Abdomen/GI: Soft, non-tender, with normal bowel sounds. No distension or tympany. No guarding or rebound. No evidence of tenderness throughout. Skin: Warm, dry with normal turgor. Normal color with no rashes, no lesions, and no evidence of cellulitis. MS/ Extremity: Pulses equal, no cyanosis. Neurovascular intact. Full, normal range of motion. Equal circumference. Neuro: Awake and alert, GCS 15, oriented to person, place, time, and situation. Cranial nerves II-XII grossly intact. Motor strength 4/5 in all extremities. Sensory grossly intact. Vital Signs: 17:28 BP 136 / 105; Pulse 86; Resp 19; Temp 98.4(O); Pulse Ox 100% ; Weight 122.47 kg; Height ap3 5 ft. 3 in. ; 18:00 BP 136 / 105; Pulse 80; Resp 17; Pulse Ox 100% on R/A; kr3 19:00 BP 149 / 104; Pulse 81; Resp 17; Pulse Ox 100% on R/A; kr3 20:00 BP 145 / 105; Pulse 80; Resp 17; Pulse Ox 100% on R/A; kr3 22:41 BP 138 / 99; Pulse 84; Resp 17; Pulse Ox 99% ; mb9 17:28 Body Mass Index 47.83 (122.47 kg, 160.02 cm) ap3 MDM: 17:18 Patient medically screened. rn 11/07 17:27 Order name: Acetaminophen; Complete Time: 18:58 rn 11/07 17:27 Order name: Basic Metabolic Panel; Complete Time: 18:58 rn 11/07 17:27 Order name: CBC with Diff; Complete Time: 18:50 rn 11/07 17:27 Order name: ETOH Level; Complete Time: 18:50 rn 11/07 17:27 Order name: Hepatic Function; Complete Time: 18:58 rn 11/07 17:27 Order name: PT-INR; Complete Time: 18:50 rn 11/07 17:27 Order name: Ptt, Activated; Complete Time: 18:50 rn 11/07 17:27 Order name: Salicylate; Complete Time: 18:50 rn 11/07 17:27 Order name: Urine Drug Screen; Complete Time: 22:40 rn 11/07 17:27 Order name: COVID-19/FLU A+B; Complete Time: 19:07 rn 11/07 21:00 Order name: Urine Dipstick-Ancillary; Complete Time: 22:40 EDMS 11/07 21:58 Order name: Urine --Ancillary (enter results); Complete Time: 22:40 wm 11/07 17:27 Order name: EKG; Complete Time: 17:28 rn 11/07 17:27 Order name: EKG - Nurse/Tech; Complete Time: 19:25 rn 11/07 17:27 Order name: IV Saline Lock; Complete Time: 17:58 rn 11/07 17:27 Order name: Labs collected and sent; Complete Time: 17:58 rn 11/07 17:27 Order name: Urine Dipstick-Ancillary (obtain specimen); Complete Time: 21:00 rn 11/07 17:27 Order name: Urine Test (obtain specimen); Complete Time: 21:00 rn Administered Medications: 19:24 Drug: Potassium Chloride PO 40 mEq Route: PO; kr3 19:24 Drug: HYDROcodone-acetaminophen PO 5 mg-325 mg 1 tabs Route: PO; kr3 Disposition Summary: 11/07/22 22:41 Discharge Ordered Location: Home elisabet Problem: new elisabet Symptoms: have improved elisabet Condition: Stable elisabet Diagnosis - Anxiety disorder, unspecified elisabet - Hypokalemia elisabet Followup: elisabet - With: Private Physician - When: 2 - 3 days - Reason: Recheck today's complaints, Continuance of care, Re-evaluation by your physician Discharge Instructions: - Discharge Summary Sheet elisabet - Panic Attack elisabet - Potassium Content of Foods elisabet - Panic Attack, [id number] elisabet - Hypokalemia elisabet - Managing Anxiety, Adult elisabet Forms: - Medication Reconciliation Form elisabet - Thank You Letter elisabet - Antibiotic Education elisabet - Prescription Opioid Use elisabet Signatures: Dispatcher [employer] EDLast Carpenter MD MD cha Nieto, Roman, MD MD rn Page, Corey, PA PA cp Prokisch, Amanda RN RN ap3 Lynne Cary RN RN kr3
--- NOTE | 2022-11-21 16:18 | ER ---
Nurse's Notes [facility] Name: Taylor Rodriguez Age: 27 yrs Sex: Female : 1995 Arrival Date: 11/07/2022 Time: 17:18 Bed 2 Private MD: Diagnosis: Anxiety disorder, unspecified;Hypokalemia Presentation: 11/07 17:28 Chief complaint: EMS states: they were called to the home of the patient for the ap3 complaint that she is a diabetic, she ate something and isn't feeling well. EMS states they arrived on scene to the patient sitting on her couch, stating she didn't feel well, crying and shaking. Coronavirus screen: At this time, the client does not indicate any symptoms associated with coronavirus-19. Ebola Screen: No symptoms or risks identified at this time. Initial Sepsis Screen: Does the patient meet any 2 criteria? No. Patient's initial sepsis screen is negative. Does the patient have a suspected source of infection? No. Patient's initial sepsis screen is negative. Risk Assessment: Do you want to hurt yourself or someone else? Patient reports no desire to harm self or others. Onset of symptoms was November 07, 2022. 17:28 Method Of Arrival: EMS: [facility] ap3 17:28 Acuity: MILAN 3 ap3 Triage Assessment: 17:35 General: Appears distressed, Behavior is cooperative, crying. Pain: Complains of pain ap3 in generalized body pain. Neuro: Level of Consciousness is awake, alert, obeys commands, Oriented to person, place, time, situation, Appropriate for age Speech is normal. Cardiovascular: Patient's skin is warm and dry. Respiratory: Airway is patent Respiratory effort is even, unlabored, Respiratory pattern is regular, symmetrical. Historical: - Allergies: 17:30 Naproxen; ap3 - Home Meds: 17:30 aripiprazole oral [Active]; duloxetine oral [Active]; Ferrous Sulfate Oral [Active]; ap3 gabapentin oral [Active]; Hydroxyzine Oral [Active]; losartan oral [Active]; propranolol Oral [Active]; Tramadol Oral [Active]; Trazodone Oral [Active]; Zofran Oral [Active]; - PMHx: 17:30 Anxiety; Depression; Fibromyalgia; High Blood Pressure; Schizophrenia; ap3 - Immunization history:: Client reports receiving the 2nd dose of the Covid vaccine. - Social history:: Smoking status: Patient reports the use of cigarette tobacco products, denies chronic smoking, but will smoke occasionally, Patient uses alcohol, occasionally. - Family history:: not pertinent. - Hospitalizations: : No recent hospitalization is reported. Screenin:37 Abuse screen: Denies threats or abuse. Nutritional screening: No deficits noted. ap3 Tuberculosis screening: No symptoms or risk factors identified. 22:41 [facility] ED Fall Risk Assessment (Adult) History of falling in the last 3 months, mb9 including since admission No falls in past 3 months (0 pts) Confusion or Disorientation No (0 pts) Intoxicated or Sedated No (0 pts) Impaired Gait No (0 pts) Mobility Assist Device Used No (0 pt) Altered Elimination No (0 pt) Score/Fall Risk Level 0 - 2 = Low Risk Oriented to surroundings, Maintained a safe environment, Educated pt \\T\\ family on fall prevention, incl call for assistance when getting out of bed. Assessment: 17:22 General: Appears uncomfortable, obese, Behavior is anxious, crying. Pain: Complains of vg1 pain in generalize body Pain currently is 9 out of 10 on a pain scale. Quality of pain is described as aching, Pain began today. Neuro: Level of Consciousness is awake, alert, obeys commands, Oriented to person, place, time, situation, Denies headache. Cardiovascular: Patient's skin is warm and dry. Respiratory: Airway is patent Respiratory effort is even, unlabored. GI: Patient currently denies nausea, vomiting. : No signs and/or symptoms were reported regarding the genitourinary system. EENT: No signs and/or symptoms were reported regarding the EENT system. Derm: Skin is pink, warm \\T\\ dry. Musculoskeletal: Circulation, motion, and sensation intact. 17:22 Reassessment: pt stated "i may be having be having a flare up" Pt mother at bedside and vg1 stated "she has fibromyalgia". 20:00 Reassessment: Patient and/or family updated on plan of care and expected duration. Pain ha1 level reassessed. Patient is alert, oriented x 3, equal unlabored respirations, skin warm/dry/pink. 20:00 General: Appears comfortable, Behavior is calm, cooperative. Pain: Denies pain. Neuro: ha1 Level of Consciousness is awake, alert, obeys commands, Oriented to person, place, time, situation. 21:03 Reassessment: No changes from previously documented assessment. Patient and/or family mb9 updated on plan of care and expected duration. Pain level reassessed. Patient is alert, oriented x 3, equal unlabored respirations, skin warm/dry/pink. Patient states symptoms have improved. 22:41 Reassessment: No changes from previously documented assessment. Patient and/or family mb9 updated on plan of care and expected duration. Pain level reassessed. Patient is alert, oriented x 3, equal unlabored respirations, skin warm/dry/pink. pt states "I'm feeling better and ready to go home" Patient states feeling better. Patient states symptoms have improved. Vital Signs: 17:28 BP 136 / 105; Pulse 86; Resp 19; Temp 98.4(O); Pulse Ox 100% ; Weight 122.47 kg; Height ap3 5 ft. 3 in. ; 18:00 BP 136 / 105; Pulse 80; Resp 17; Pulse Ox 100% on R/A; kr3 19:00 BP 149 / 104; Pulse 81; Resp 17; Pulse Ox 100% on R/A; kr3 20:00 BP 145 / 105; Pulse 80; Resp 17; Pulse Ox 100% on R/A; kr3 22:41 BP 138 / 99; Pulse 84; Resp 17; Pulse Ox 99% ; mb9 17:28 Body Mass Index 47.83 (122.47 kg, 160.02 cm) ap3 ED Course: 17:18 Patient arrived in ED. eb 17:18 Moses Bell MD is Attending Physician. rn 17:22 Smiley [place], ROQUE is Primary Nurse. vg1 17:30 Triage completed. ap3 17:32 Missed attempt(s): 20 gauge in right antecubital area. kr3 17:35 Inserted saline lock: 20 gauge in left antecubital area, using aseptic technique. Blood kr3 collected. 17:37 Arm band placed on left wrist. ap3 17:37 Patient has correct armband on for positive identification. Bed in low position. Call ap3 light in reach. Side rails up X2. Pulse ox on. NIBP on. Door closed. Noise minimized. 21:00 Urine Drug Screen Sent. mb9 22:39 Attending Physician role handed off by Moses Bell MD [facility] 22:39 Last Barrientos MD is Attending Physician. [facility] 22:41 No provider procedures requiring assistance completed. IV discontinued, intact, mb9 bleeding controlled, No redness/swelling at site. Pressure dressing applied. Administered Medications: 19:24 Drug: Potassium Chloride PO 40 mEq Route: PO; kr3 19:24 Drug: HYDROcodone-acetaminophen PO 5 mg-325 mg 1 tabs Route: PO; kr3 Medication: 22:42 VIS not applicable for this client. mb9 Outcome: 22:41 Discharge ordered by . [facility] 22:42 Discharged to home ambulatory. mb9 22:42 Condition: stable 22:42 Discharge instructions given to patient, Instructed on discharge instructions, follow up and referral plans. Demonstrated understanding of instructions, follow-up care. 22:50 Patient left the ED. mb9 Signatures: Last Barrientos MD MD cha Nieto, Roman, MD MD rn Prokisch, Amanda RN RN [email or web address] Lolly Vang Victoria, RN RN vg1 Shefali Petty RN RN ha1 Lynne Cary RN RN kr3 Marlene Bo, RN RN mb9
== END 2022-11-07 22:50 | disposition home or self-care (01) ==
LOC: ER 17:11
DX: F41.9 Anxiety disorder, unspecified (principal); E87.6 Hypokalemia; F17.210 Nicotine dependence, cigarettes, uncomplicated; Z20.822 Contact with and (suspected) exposure to COVID-19
CPT/HCPCS: 93005; 85025; 80048; 36415; 81025; 85610; 80076; 85730; 81003; 0240U; 80307; 99284; G0480 ×3

== ENCOUNTER 2022-12-25 19:02 | Emergency (ER) | payer OTHER ==
--- OUTSIDE RECORDS SUMMARY | 2022-12-25 19:19 | XMS REPORT | Continuity of Care Document ---
:1995 Author Organization [facility] t Address [address] [facility]. [address] [place] [address] Care Team Providers Name Role Phone Roman YOUNG, [facility] Primary Care Physician [phone] DARLIN VICK Attending Clinician Unavailable GAURAV PURVIS Attending Clinician Unavailable SPENSER STOKES Attending Clinician Unavailable ROBYN GARY Attending Clinician Unavailable PLABPA Attending Clinician Unavailable JALYN CRUZ Attending Clinician Unavailable BYRON MALHOTRA Attending Clinician Unavailable MD ARAVIND Attending Clinician Unavailable MANOLO MARTINEZ Attending Clinician Unavailable GAUTAM GIVENS Attending Clinician Unavailable JAROD MOMIN Attending Clinician Unavailable PL, TECH 1 Attending Clinician Unavailable LAB47 Attending Clinician Unavailable LAB90 Attending Clinician Unavailable MARIANO Attending Clinician Unavailable ANNEMARIE GRAFF Attending Clinician Unavailable Alexandre Wick Attending Clinician SHEY BIANCHI Attending Clinician Unavailable Doctor Unassigned, [place] Attending Clinician Unavailable Shey Bianchi MD Attending Clinician ALEXADNRE DELGADO Attending Clinician Unavailable James Sosa MD Attending Clinician Care, [facility] Primary Attending Clinician Unavailable ILIANA LAMAR Attending Clinician Unavailable Annemarie Alexander Attending Clinician Dannie Botello MD Attending Clinician DANNIE BOTELLO Attending Clinician Unavailable MARIANO Admitting Clinician Unavailable ALEXANDRE DELGADO Admitting Clinician Unavailable Payers Payer Name Policy Type Policy Number Effective Date Expiration Date [facility] AETNA MP SILVER: 9 [id number] 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 00:00: [...] ea ea 2-14 ity of 00:00: [place] [facility] Decreased Decreased Disease Active 2016-08 Uni vers cream beater cream beater 0-12 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 00:00: Medical Branch Decreased Decreased Disease Active 2016-08 Uni vers cream beater cream beater 0-12 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 00:00: Medical Branch Pain Pain Disease Active 2016-08 Univers 0-12 ity of 00:00: Medical Branch 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 [...] Branch NAPROXEN DRUG Active N/V Univers INGREDI 8- ity of 00:00: [place] [facility] Codeine Propensi Active Jelena ty to 5-19 Seybold adverse 00:00: - reaction 00 Externa s l Naproxen Propensi Active ty to 5-19 adverse 00:00: reaction 00 to drug NO KNOWN Drug Active Univers ALLERGIE Class ity of [facility] Social History Social Habit Start Date Stop Date Quantity Comments Source Gender identity 2022-09-04 Identifies as Jelena Ibrahim - 10:33:35 male gender External (finding) Sexual orientation 2022-09-04 Jelena Ibrahim - 10:33:35 External Exposure to Not sure University of SARS-CoV-2 (event) [facility] History of tobacco Cigarette Smoker Jelena Ibrahim - use External History SDOH Jelena Eatono ld - Alcohol Frequency Externa l History SDOH Jelena Eatono ld - Alcohol Std Drinks Rn Anesthesiology al History SDOH Jelena Eatono ld - Alcohol Binge External History of Social 2022-12-22 2022-12-22 Jelena Guevaraybold - function 00:00:00 00:00:00 External Tobacco use and 2022-12-22 2022-12-22 Smokeless tobacco Ke sveta Seybold - exposure 00:00:00 00:00:00 non-user External Alcohol intake 2022-12-22 2022-12-22 Current drinker Beth Eatonold - 00:00:00 00:00:00 of alcohol External (finding) Alcohol Comment 2022-09-09 2022-09-09 rare Jelena Guevara ybold - 00:00:00 00:00:00 External Tobacco Comment 2019-08-16 2019-08-16 Quit Universit y of 00:00:00 00:00:00 smoking/vaping [facility] this year Branch Sex Ass[birth year] At [birth year] F Jelena Guevara ybold - 00:00:00 00:00:00 External Smoking Status Start Date Stop Date Source Occasional tobacco 2022-12-22 00:00:00 Jelena Se henley - smoker External Never smoked tobacco Jelenalit Eaton old - External Former smoker 2020-09-07 00:00:00 2020-09-07 [place] [facility] 00:00:00 Medical Branch Medications Ordered Filled Start Stop Current Ordering Indication Dosage Frequency Signature Comments Components Source Medication Medication Date Date Medication? Clinician (SIG) Name Name Trazodone Yes [id number] 100mg Take 1 K elsey HCl 100 MG 4-24 tablet Seybold oral Tablet 08:55: (100 mg - 22 total) by Externa mouth at l bedtime Cyanocobala Yes Take by Emanuel woodard min 4-24 mouth Seybold (VITAMIN B 08:55: - 12 OR) 22 Externa l Albuterol Yes [id number] 2{puff} Q.25D Inhale 2 Jelena HFA 108 (90 4-24 puffs into Se ybold [employer]) 00:00: the lungs - MCG/ACT IN 00 every 6 Rn Anesthesiology a AERS hours as l needed for wheezing or shortness of breath Cyclobenzap 2022-0 Yes 10mg Q.[id number] Take 1 Jelena rine HCl 10 -22 [id number] tablet (10 Seybold MG oral 00:00: 3D mg total) - Tablet 00 by mouth Externa every 8 l hours as needed Gabapentin 2022-0 Yes [id number] 100mg Take 1 Jelena 100 MG oral 4-20 capsule Seybo ld Capsule 00:00: (100 mg - 00 total) by Externa mouth 3 l times daily Aripiprazol 2022-0 Yes 15mg Take 1 Ashlie ey e 15 MG 4-19 tablet (15 Seybol d oral Tablet 00:00: mg total) - 00 by mouth Externa at bedtime l Trazodone 2022-0 Yes [id number] 100mg Take 1 K elsey HCl 100 MG 4-13 tablet Seybold oral Tablet 10:58: (100 mg - 09 total) by Externa mouth at l bedtime Cyanocobala 2022-0 Yes Take by Emanuel sey min 4-13 mouth Seybold (VITAMIN B 10:58: - 12 OR) 09 Externa l Trazodone 2022-0 Yes [id number] 100mg Take 1 K elsey HCl 100 MG 4-10 tablet Seybold oral Tablet 11:00: (100 mg - 07 total) by Externa mouth at l bedtime Cyanocobala 3-0 Yes Take by Emanuel sey min 4-10 mouth Seybold (VITAMIN B 11:00: - 12 OR) 07 Externa l Propranolol 3-0 Yes [id number] TAKE ONE Jelena HCl 10 MG 4-10 (1) Seybold oral Tablet 00:00: TABLET(S) - 00 BY MOUTH Externa THREE l TIMES A DAY. Propranolol 3-0 Yes [id number] TAKE ONE Jelena HCl 10 MG 4-10 (1) Seybold oral Tablet 00:00: TABLET(S) - 00 BY MOUTH Externa THREE l TIMES A DAY. Orphenadrin 3-0 Yes 100mg Q.5D Take 1 Emanuel sey e Citrate 4-10 tablet Seybold CR 100 MG 00:00: (100 mg - oral Tablet 00 total) by Ext jonathan 12 Hour mouth 2 l Sustained times Release daily as needed Meloxicam 2023-0 Yes [id number] 15mg Take 1 Jelena 15 MG oral 4-06 tablet (15 Sey bold Tablet 00:00: mg total) - 00 by mouth Externa daily l Meloxicam 2023-0 Yes [id number] 15mg Take 1 Jelena 15 MG oral 4-06 tablet (15 Sey bold Tablet 00:00: mg total) - 00 by mouth Externa daily l Meloxicam 2023-0 Yes [id number] 15mg Take 1 Jelena 15 MG oral 4-06 tablet (15 Sey bold Tablet 00:00: mg total) - 00 by mouth Externa daily l Duloxetine 3-0 Yes 30mg Take 1 Kelse y HCl 30 MG 3-31 capsule Seybold oral Cap DR 00:00: (30 mg - Particles 00 total) by Exter na mouth l every morning Meclizine 2023-0 Yes [id number] TAKE ONE Jelena HCl 25 MG 3-24 (1) Seybold oral Tablet 00:00: TABLET(S) - 00 BY MOUTH Externa THREE l TIMES A DAY NEEDED. Meclizine 2023-0 Yes [id number] TAKE ONE Jelena HCl 25 MG 3-24 (1) Seybold oral Tablet 00:00: TABLET(S) - 00 BY MOUTH Externa THREE l TIMES A DAY NEEDED. Meclizine 2023-0 Yes [id number] TAKE ONE Jelena HCl 25 MG 3-24 (1) Seybold oral Tablet 00:00: TABLET(S) - 00 BY MOUTH Externa THREE l TIMES A DAY NEEDED. Losartan 3-0 Yes [id number] 1{tbl} Take 1 K elsey Potassium-H 3-22 tablet by Sey bold CTZ 50-12.5 00:00: mouth - MG oral 00 daily Externa Tablet l Losartan 2023-0 Yes [id number] 1{tbl} Take 1 K elsey Potassium-H 3-22 tablet by Sey bold CTZ 50-12.5 00:00: mouth - MG oral 00 daily Externa Tablet l Losartan 2023-0 Yes [id number] 1{tbl} Take 1 K elsey Potassium-H 3-22 tablet by Sey bold CTZ 50-12.5 00:00: mouth - MG oral 00 daily Externa Tablet l Propranolol 2022-0 2022- No [id number] TAKE ONE Jelena HCl 10 MG 3-10 04-10 (1) Seybold oral Tablet 00:00: 00:00 TABLET(S) - 00 :00 BY MOUTH Externa THREE l TIMES A DAY. Cholecalcif 2022-0 2022- No [id number] 66622I Take 1 Jelena juan 1.25 3-02 04-10 capsule Seybol d MG ([id number] 00:00: 00:00 (50,000 - UT) oral 00 :00 units Externa Capsule total) by l mouth twice a week for 8 doses Trazodone 2022-0 Yes [id number] 100mg Take 100 Jelena HCl 100 MG 2-28 mg by Seybold oral Tablet 09:11: mouth at - 07 bedtime Externa l Cyanocobala 2022-0 Yes Take by Emanuel sey min 2-28 mouth Seybold (VITAMIN B 09:11: - 12 OR) 07 Externa l hydroCHLORO 2022-0 Yes TAKE ONE Ke lsey thiazide 2-23 (1) Seybold 12.5 MG 00:00: CAPSULE(S) - oral 00 BY MOUTH Externa Capsule ONCE A l DAY. hydroCHLORO 2022-0 Yes TAKE ONE Ke lsey thiazide 2-23 (1) Seybold 12.5 MG 00:00: CAPSULE(S) - oral 00 BY MOUTH Externa Capsule ONCE A l DAY. hydroCHLORO 2022-0 Yes TAKE ONE Ke lsey thiazide 2-23 (1) Seybold 12.5 MG 00:00: CAPSULE(S) - oral 00 BY MOUTH Externa Capsule ONCE A l DAY. hydroCHLORO 2022-0 Yes TAKE ONE Ke lsey thiazide 2-23 (1) Seybold 12.5 MG 00:00: CAPSULE(S) - oral 00 BY MOUTH Externa Capsule ONCE A l DAY. hydrOXYzine 2022-0 Yes 50mg Q.[id number] Take 1 Jelena HCl 50 MG 2-13 [id number] tablet (50 Seybold oral Tablet 00:00: 3D mg total) - 00 by mouth Externa every 8 l hours as needed Losartan 2022-0 Yes [id number] 1{tbl} Take 1 K elsey Potassium-H 2-10 tablet by Seemmy bold CTZ 50-12.5 00:00: mouth - MG oral 00 daily Externa Tablet l Meclizine 2022-0 Yes [id number] 25mg Q.[id number] Take 1 Jelena HCl 25 MG 2-10 [id number] tablet (25 Seybold oral Tablet 00:00: 3D mg total) - 00 by mouth 3 Externa times l daily as needed Propranolol 2022-0 Yes [id number] 10mg Take 1 Jelena HCl 10 MG 2-10 tablet (10 Seyb old oral Tablet 00:00: mg total) - 00 by mouth 3 Externa times l daily Losartan 2022-0 Yes [id number] 1{tbl} Take 1 K elsey Potassium-H 2-10 tablet by Lit Crowd Cast CTZ 50-12.5 00:00: mouth - MG oral 00 daily Externa Tablet l Meclizine 2022-0 Yes [id number] 25mg Q.[id number] Take 1 Jelena HCl 25 MG 2-10 [id number] tablet (25 Seybold oral Tablet 00:00: 3D mg total) - 00 by mouth 3 Externa times l daily as needed Propranolol 2022-0 Yes [id number] 10mg Take 1 Jelena HCl 10 MG 2-10 tablet (10 Seyb old oral Tablet 00:00: mg total) - 00 by mouth 3 Externa times l daily Doxycycline 2022-0 Yes [id number] 100mg Take 1 Jelena Hyclate 100 -31 tablet Seybol d MG oral 00:00: (100 mg - Tablet 00 total) by Externa mouth 2 l times daily Doxycycline 2022-0 2022- No [id number] 100mg Take 1 Jelena Hyclate 100 -31 02-28 tablet Seybo ld MG oral 00:00: 00:00 (100 mg - Tablet 00 :00 total) by Externa mouth 2 l times daily Trulicity 2022-0 Yes [id number] .75mg Inject Jelena 0.75 1-28 0.75 mg Seybold MG/0.5ML 00:00: into the - subcutaneou 00 skin once Ext jonathan s Solution a week l Pen-injecto r Trulicity 2022- Yes [id number] .75mg Inject Jelena 0.75 -28 0.75 mg Seybold MG/0.5ML 00:00: into the - subcutaneou 00 skin once Ext jonathan s Solution a week l Pen-injecto r Trulicity Yes [id number] .75mg Inject Jelena 0.75 1-28 0.75 mg Seybold MG/0.5ML 00:00: into the - subcutaneou 00 skin once Ext jonathan s Solution a week l Pen-injecto r Trulicity Yes [id number] .75mg Inject Jelena 0.75 1-28 0.75 mg Seybold MG/0.5ML 00:00: into the - subcutaneou 00 skin once Ext jonathan s Solution a week l Pen-injecto r Aripiprazol 2022- No Kelse y e 20 MG 1-25 01-25 Seybold oral Tablet 11:11: 00:00 - 39 :00 Externa l Aripiprazol 2022- No [id number] 10mg Take 10 mg Jelena e 10 MG 1-25 01-25 by mouth 2 Seybo ld oral Tablet 11:11: 00:00 times - 26 :00 daily Externa l Trazodone Yes [id number] 100mg Take 100 Jelena HCl 100 MG 1-25 mg by Seybold oral Tablet 10:31: mouth at - 22 bedtime Externa l Cyanocobala Yes Take by Emanuel sey min 1-25 mouth Seybold (VITAMIN B 10:31: - 12 OR) 22 Externa l Trazodone Yes [id number] 100mg Take 100 Jelena HCl 100 MG 1-25 mg by Seybold oral Tablet 10:31: mouth at - 22 bedtime Externa l Cyanocobala Yes Take by Emanuel sey min 1-25 mouth Seybold (VITAMIN B 10:31: - 12 OR) 22 Externa l hydroCHLORO Yes [id number] 12.5mg Take 1 Jelena thiazide 1-25 capsule Seybold 12.5 MG 00:00: (12.5 mg - oral 00 total) by Externa Capsule mouth l daily Ondansetron Yes [id number] 4mg Q.[id number] Take 1 Jelena (ZOFRAN) 4 1-25 [id number] tablet (4 Seybold MG oral 00:00: 3D mg total) - TABLET 00 by mouth Externa DISPERSIBLE every 8 l hours as needed for nausea Tirzepatide Yes [id number] 2.5mg Inject 0.5 Jelena (Mounjaro) 1-25 mL (2.5 mg Sey bold 2.5 00:00: total) - MG/0.5ML 00 into the Externa subcutaneou skin once l s Solution a week Pen-injecto r Celecoxib 2022-0 Yes [id number] 200mg Take 1 Jelena (CeleBREX) 1-25 capsule Seybol d 200 MG oral 00:00: (200 mg - Capsule 00 total) by Externa mouth 2 l times daily Gabapentin 2022-0 Yes [id number] 100mg Take 1 Jelena 100 MG oral 1-25 capsule Seybo ld Capsule 00:00: (100 mg - 00 total) by Externa mouth 3 l times daily Ondansetron 2022-0 Yes [id number] 4mg Q.[id number] Take 1 Jelena (ZOFRAN) 4 1-25 [id number] tablet (4 Seybold MG oral 00:00: 3D mg total) - TABLET 00 by mouth Externa DISPERSIBLE every 8 l hours as needed for nausea Celecoxib 2022-0 Yes [id number] 200mg Take 1 Jelena (CeleBREX) 1-25 capsule Seybol d 200 MG oral 00:00: (200 mg - Capsule 00 total) by Externa mouth 2 l times daily Gabapentin 2022-0 Yes [id number] 100mg Take 1 Jelena 100 MG oral 1-25 capsule Seybo ld Capsule 00:00: (100 mg - 00 total) by Externa mouth 3 l times daily Ondansetron 2022-0 Yes [id number] 4mg Q.[id number] Take 1 Jelena (ZOFRAN) 4 1-25 [id number] tablet (4 Seybold MG oral 00:00: 3D mg total) - TABLET 00 by mouth Externa DISPERSIBLE every 8 l hours as needed for nausea Celecoxib 2022-0 Yes [id number] 200mg Take 1 Jelena (CeleBREX) 1-25 capsule Seybol d 200 MG oral 00:00: (200 mg - Capsule 00 total) by Externa mouth 2 l times daily Gabapentin 2022-0 Yes [id number] 100mg Take 1 Jelena 100 MG oral 1-25 capsule Seybo ld Capsule 00:00: (100 mg - 00 total) by Externa mouth 3 l times daily Ondansetron 2022-0 Yes [id number] 4mg Q.[id number] Take 1 Jelena (ZOFRAN) 4 1-25 [id number] tablet (4 Seybold MG oral 00:00: 3D mg total) - TABLET 00 by mouth Externa DISPERSIBLE every 8 l hours as needed for nausea Gabapentin 2022-0 Yes [id number] 100mg Take 1 Jelena 100 MG oral 1-25 capsule Seybo ld Capsule 00:00: (100 mg - 00 total) by Externa mouth 3 l times daily Ondansetron 2022-0 Yes [id number] 4mg Q.[id number] Take 1 Jelena (ZOFRAN) 4 1-25 [id number] tablet (4 Seybold MG oral 00:00: 3D mg total) - TABLET 00 by mouth Externa DISPERSIBLE every 8 l hours as needed for nausea Gabapentin 2022-0 Yes [id number] 100mg Take 1 Jelena 100 MG oral 1-25 capsule Seybo ld Capsule 00:00: (100 mg - 00 total) by Externa mouth 3 l times daily Ondansetron 2022-0 Yes [id number] 4mg Q.[id number] Take 1 Jelena (ZOFRAN) 4 1-25 [id number] tablet (4 Seybold MG oral 00:00: 3D mg total) - TABLET 00 by mouth Externa DISPERSIBLE every 8 l hours as needed for nausea hydroCHLORO 2022-0 3- No [id number] 12.5mg Take 1 Jelena thiazide 1-25 02-10 capsule Seybold 12.5 MG 00:00: 00:00 (12.5 mg - oral 00 :00 total) by Externa Capsule mouth l daily Nexplanon 2022-0 Yes Jelena 68 MG 1-23 Seybold subcutaneou 00:00: - s Implant 00 Externa l Nexplanon 3-0 Yes Jelena 68 MG 1-23 Seybold subcutaneou 00:00: - s Implant 00 Externa l Nexplanon 2023-0 Yes Jelena 68 MG 1-23 Seybold subcutaneou 00:00: - s Implant 00 Externa l Nexplanon 0 Yes Jelena 68 MG 1-23 Seybold subcutaneou 00:00: - s Implant 00 Externa l Nexplanon 0 Yes Jelena 68 MG 1-23 Seybold subcutaneou 00:00: - s Implant 00 Externa l Nexplanon 0 Yes Jelena 68 MG 1-23 Seybold subcutaneou 00:00: - s Implant 00 Externa l Docusate 0 Yes [id number] 100mg Take 1 Ke lsey Sodium 1-13 capsule Seybold (Colace) 00:00: (100 mg - 100 MG oral 00 total) by Ext jonathan Capsule mouth l daily Ferrous Yes [id number] 325mg Take 1 Emanuel sey Sulfate 1-13 tablet Seybold (Iron) 325 00:00: (325 mg - (65 Fe) MG 00 total) by Exte rna oral Tablet mouth l daily (with breakfast) Docusate Yes [id number] 100mg Take 1 Ke lsey Sodium 1-13 capsule Seybold (Colace) 00:00: (100 mg - 100 MG oral 00 total) by Ext jonathan Capsule mouth l daily Ferrous 0 Yes [id number] 325mg Take 1 Emanuel sey Sulfate 1-13 tablet Seybold (Iron) 325 00:00: (325 mg - (65 Fe) MG 00 total) by Exte rna oral Tablet mouth l daily (with breakfast) Docusate 0 Yes [id number] 100mg Take 1 Ke lsey Sodium 1-13 capsule Seybold (Colace) 00:00: (100 mg - 100 MG oral 00 total) by Ext jonathan Capsule mouth l daily Ferrous 0 Yes [id number] 325mg Take 1 Emanuel sey Sulfate 1-13 tablet Seybold (Iron) 325 00:00: (325 mg - (65 Fe) MG 00 total) by Exte rna oral Tablet mouth l daily (with breakfast) Docusate 0 Yes [id number] 100mg Take 1 Ke lsey Sodium 1-13 capsule Seybold (Colace) 00:00: (100 mg - 100 MG oral 00 total) by Ext jonathan Capsule mouth l daily Ferrous 2022-0 Yes [id number] 325mg Take 1 Emanuel sey Sulfate 1-13 tablet Seybold (Iron) 325 00:00: (325 mg - (65 Fe) MG 00 total) by Exte rna oral Tablet mouth l daily (with breakfast) Docusate 2022-0 Yes [id number] 100mg Take 1 Ke lsey Sodium 1-13 capsule Seybold (Colace) 00:00: (100 mg - 100 MG oral 00 total) by Ext jonathan Capsule mouth l daily Ferrous 0 Yes [id number] 325mg Take 1 Emanuel sey Sulfate 1-13 tablet Seybold (Iron) 325 00:00: (325 mg - (65 Fe) MG 00 total) by Exte rna oral Tablet mouth l daily (with breakfast) Docusate 0 Yes [id number] 100mg Take 1 Ke lsey Sodium 1-13 capsule Seybold (Colace) 00:00: (100 mg - 100 MG oral 00 total) by Ext jonathan Capsule mouth l daily Ferrous 0 Yes [id number] 325mg Take 1 Emanuel sey Sulfate 1-13 tablet Seybold (Iron) 325 00:00: (325 mg - (65 Fe) MG 00 total) by Exte rna oral Tablet mouth l daily (with breakfast) Nitrofurant 0 2022- No [id number] 100mg Take 1 Jelena oin Monohyd 1-13 01-25 capsule Seyb old Macro 00:00: 00:00 (100 mg - (Macrobid) 00 :00 total) by Exte rna 100 MG oral mouth 2 l Capsule times daily Trazodone 2022-0 Yes 100mg Take 100 Emanuel sey HCl 100 MG 1-10 mg by Seybold oral Tablet 08:59: mouth at - 14 bedtime Externa l Benztropine 2022-0 2022- No 1mg Take 1 mg Jelena Mesylate 1 1-10 01-10 by mouth Seyb old MG oral 08:58: 00:00 daily - Tablet 46 :00 Externa l Aripiprazol 2022-0 Yes 10mg Take 10 mg Jelena e [...] 2021-0 No Unknown 1- 00:00: 00 Dose 0 No Unknown 1- 00:00: 00 Dose 0 No Unknown 1-11 00:00: 00 Dose 0 No Unknown 1-11 00:00: 00 LYRICA 150 2019-08 Yes [id number] Take 1 Univers mg capsule 2-21 capsule by ity of 00:00: mouth [place] 00 twice a Medical day for Branch neuropathi c pain as directed by physician. LYRICA 150 2019-08 Yes [id number] Take 1 Univers mg capsule 2-21 capsule by ity of 00:00: mouth [place] 00 twice a Medical day for Branch neuropathi c pain as directed by physician. LYRICA 150 2019-08 Yes [id number] Take 1 Univers mg capsule 2-21 capsule by ity of 00:00: mouth [place] 00 twice a Medical day for Branch neuropathi c pain as directed by physician. LYRICA 150 2019-08 Yes [id number] Take 1 Univers mg capsule 2-21 capsule by ity of 00:00: mouth [place] 00 twice a Medical day for Branch neuropathi c pain as directed by physician. LYRICA 150 2019-08 Yes [id number] Take 1 Univers mg capsule 2-21 capsule by ity of 00:00: mouth [place] 00 twice a Medical day for Branch neuropathi c pain as directed by physician. LYRICA 150 2019-08 Yes [id number] Take 1 Univers mg capsule 2-21 capsule by ity of 00:00: mouth [place] 00 twice a Medical day for Branch neuropathi c pain as directed by physician. LYRICA 150 2019-08 Yes [id number] Take 1 Univers mg capsule 2-21 capsule [...] times Medical daily. Branch ofloxacin 2020-0 Yes [id number] 5[drp] Place 5 Univers 0.3 % otic 05-17 [id number] Drops in ity of drops 00:00: both ears [place] 00 3 (three) Medical times Branch daily. ofloxacin 2020-0 Yes [id number] 5[drp] Place 5 Univers 0.3 % otic 9-17 [id number] Drops in ity of drops 00:00: both ears [place] 00 3 (three) Medical times Branch daily. ofloxacin 2020-0 Yes [id number] 5[drp] Place 5 Univers 0.3 % otic 9-17 [id number] Drops in ity of drops 00:00: both ears [place] 00 3 (three) Medical times Branch daily. ofloxacin 2020-0 Yes [id number] 5[drp] Place 5 Univers 0.3 % otic 9-17 [id number] Drops in ity of drops 00:00: both ears [place] 00 3 (three) Medical times Branch daily. ofloxacin 2020-0 Yes [id number] 5[drp] Place 5 Univers 0.3 % otic 9-17 [id number] Drops in ity of drops 00:00: both ears [place] 00 3 (three) Medical times Branch daily. ofloxacin 2020-0 Yes [id number] 5[drp] Place 5 Univers 0.3 % otic 9-17 [id number] Drops in ity of drops 00:00: both ears [place] 00 3 (three) Medical times Branch daily. ofloxacin 2020-0 Yes [id number] 5[drp] Place 5 Univers 0.3 % otic 9-17 [id number] Drops in ity of drops 00:00: both ears [place] 00 3 (three) Medical times Branch daily. ofloxacin 2020-0 Yes [id number] 5[drp] Place 5 Univers 0.3 % otic 9-17 [id number] Drops in ity of drops 00:00: both ears [place] 00 3 (three) Medical times Branch daily. ofloxacin 2020-0 Yes [id number] 5[drp] Place 5 Univers 0.3 % otic 9-17 [id number] Drops in ity of drops 00:00: both ears [place] 00 3 (three) Medical times Branch daily. ofloxacin 2020-0 Yes [id number] 5[drp] Place 5 Univers 0.3 % otic 9-17 [id number] Drops in ity of drops 00:00: both ears [place] 00 3 (three) Medical times Branch daily. ofloxacin 2020-0 Yes [id number] 5[drp] Place 5 Univers 0.3 % otic 9-17 [id number] Drops in ity of drops 00:00: both ears [place] 00 3 (three) Medical times Branch daily. ofloxacin 2020-0 Yes [id number] 5[drp] Place 5 Univers 0.3 % otic 9-17 [id number] Drops in ity of drops 00:00: both ears [place] 00 3 (three) Medical times Branch daily. ofloxacin 2020-0 Yes [id number] 5[drp] Place 5 Univers 0.3 % otic 9-17 [id number] Drops in ity of drops 00:00: both ears [place] 00 3 (three) Medical times Branch daily. ofloxacin 2020-0 Yes [id number] 5[drp] Place 5 Univers 0.3 % otic 9-17 [id number] Drops in ity of drops 00:00: both ears [place] 00 3 (three) Medical times Branch daily. ofloxacin 2020-0 Yes [id number] 5[drp] Place 5 Univers 0.3 % otic 9-17 [id number] Drops in ity of drops 00:00: both ears [place] 00 3 (three) Medical times Branch daily. acetaminoph 2020- No [id number] 1{tbl} Take 1 U nivers en-codeine 9-17 05-25 tablet by ity of (TYLENOL-CO 00:00: 04:59 [place] DEINE #3) 00 :00 every 4 Medical 300-30 mg (four) Branch tablet hours as needed for Pain (scale 7-10) for up to 7 days. Indication s: acute pain acetaminoph 2019-2019- No [id number] 1{tbl} Take 1 U nivers en-codeine -17 -25 tablet by ity of (TYLENOL-CO 00:00: 04:59 mouth [place] DEINE #3) 00 :00 every 4 Medical 300-30 mg (four) Branch tablet hours as needed for Pain (scale 7-10) for up to 7 days. Indication s: acute pain acetaminoph 2019- No [id number] 1{tbl} Take 1 U nivers en-codeine -17 -25 tablet by ity of (TYLENOL-CO 00:00: 04:59 mouth [place] DEINE #3) 00 :00 every 4 Medical 300-30 mg (four) Branch tablet hours as needed for Pain (scale 7-10) for up to 7 days. Indication s: acute pain metoprolol 2020-0 Yes [id number] 50mg Take 1 Un nneka succinate 7-09 tablet by ity o f XL 50 mg 24 00:00: mouth [place] hr tablet 00 daily. Medical Branch hydroCHLORO 2020-0 Yes [id number] 25mg Take 1 Univers thiazide 25 7-09 tablet by ity of mg tablet 00:00: mouth [place] 00 daily. Medical Branch baclofen 10 2020-0 Yes [id number] 10mg Take 1 Univers mg tablet 7- [id number] tablet by ity of 00:00: mouth 3 [place] 00 (three) Medical times Branch daily as needed for Pain (scale 4-6). metoprolol 2020-0 Yes [id number] 50mg Take 1 Un nneka succinate 7-09 tablet by ity o f XL 50 mg 24 00:00: mouth [place] hr tablet 00 daily. Medical Branch hydroCHLORO 2020-0 Yes [id number] 25mg Take 1 Univers thiazide 25 7-09 tablet by ity of mg tablet 00:00: mouth [place] 00 daily. Medical Branch baclofen 10 2019-0 Yes [id number] 10mg Take 1 Univers mg tablet 7 [id number] tablet by ity of 00:00: mouth 3 [place] 00 (three) Medical times Branch daily as needed for Pain (scale 4-6). metoprolol 2020-0 Yes [id number] 50mg Take 1 [facility] succinate 7-09 tablet by [facility] o f XL 50 mg 24 00:00: mouth [place] hr tablet 00 daily. [facility] hydroCHLORO 2020-0 Yes [id number] 25mg Take 1 [facility] thiazide 25 7-09 tablet by [facility] of mg tablet 00:00: mouth [place] 00 daily. [facility] baclofen 10 2019-0 Yes [id number] 10mg Take 1 [facility] mg tablet 03-08 [id number] tablet by [facility] of 00:00: mouth 3 [place] 00 (three) Medical times Branch daily as needed for Pain (scale 4-6). metoprolol 2020-0 Yes [id number] 50mg Take 1 [facility] succinate 7-09 tablet by [facility] o f XL 50 mg 24 00:00: mouth [place] hr tablet 00 daily. [facility] hydroCHLORO 2020-0 Yes [id number] 25mg Take 1 [facility] thiazide 25 7-09 tablet by [facility] of mg tablet 00:00: mouth [place] 00 daily. [facility] baclofen 10 2020-0 Yes [id number] 10mg Take 1 [facility] mg tablet 03-08 [id number] tablet by [facility] of 00:00: mouth 3 [place] 00 (three) Medical times Branch daily as needed for Pain (scale 4-6). metoprolol 2020-0 Yes [id number] 50mg Take 1 [facility] succinate 7-09 tablet by it[facility] o f XL 50 mg 24 00:00: mouth [place] hr tablet 00 daily. [facility] hydroCHLORO 2020-0 Yes [id number] 25mg Take 1 [facility] thiazide 25 7-09 tablet by [facility] of mg tablet 00:00: mouth [place] 00 daily. [facility] baclofen 10 2020-0 Yes [id number] 10mg Take 1 [facility] mg tablet 7- [id number] tablet by [facility] of 00:00: mouth 3 [place] 00 (three) Medical times Branch daily as needed for Pain (scale 4-6). metoprolol 2020-0 Yes [id number] 50mg Take 1 [facility] succinate 7-09 tablet by it[facility] o f XL 50 mg 24 00:00: mouth [place] hr tablet 00 daily. [facility] hydroCHLORO 2020-0 Yes [id number] 25mg Take 1 [facility] thiazide 25 7-09 tablet by [facility] of mg tablet 00:00: mouth [place] 00 daily. [facility] baclofen 10 2019-0 Yes [id number] 10mg Take 1 [facility] mg tablet 7- [id number] tablet by [facility] of 00:00: mouth 3 [place] 00 (three) Medical times Branch daily as needed for Pain (scale 4-6). metoprolol 2020-0 Yes [id number] 50mg Take 1 [facility] succinate 7-09 tablet by it[facility] o f XL 50 mg 24 00:00: mouth [place] hr tablet 00 daily. [facility] hydroCHLORO 2020-0 Yes [id number] 25mg Take 1 [facility] thiazide 25 7-09 tablet by [facility] of mg tablet 00:00: mouth [place] 00 daily. [facility] baclofen 10 2020-0 Yes [id number] 10mg Take 1 [facility] mg tablet 7- [id number] tablet by [facility] of 00:00: mouth 3 [place] 00 (three) Medical times Branch daily as needed for Pain (scale 4-6). metoprolol 2020-0 Yes [id number] 50mg Take 1 [facility] succinate 7-09 tablet by it[facility] o f XL 50 mg 24 00:00: mouth [place] hr tablet 00 daily. [facility] hydroCHLORO 2020-0 Yes [id number] 25mg Take 1 [facility] thiazide 25 7-09 tablet by [facility] of mg tablet 00:00: mouth [place] 00 daily. [facility] baclofen 10 2020-0 Yes [id number] 10mg Take 1 [facility] mg tablet 03-08 [id number] tablet by [facility] of 00:00: mouth 3 [place] 00 (three) Medical times Branch daily as needed for Pain (scale 4-6). metoprolol 2020-0 Yes [id number] 50mg Take 1 [facility] succinate 7-09 tablet by [facility] o f XL 50 mg 24 00:00: mouth [place] hr tablet 00 daily. [facility] hydroCHLORO 2020-0 Yes [id number] 25mg Take 1 [facility] thiazide 25 7-09 tablet by [facility] of mg tablet 00:00: mouth [place] 00 daily. [facility] baclofen 10 2020-0 Yes [id number] 10mg Take 1 [facility] mg tablet 03-08 [id number] tablet by [facility] of 00:00: mouth 3 [place] 00 (three) Medical times Branch daily as needed for Pain (scale 4-6). metoprolol 2020-0 Yes [id number] 50mg Take 1 [facility] succinate 7-09 tablet by it[facility] o f XL 50 mg 24 00:00: mouth [place] hr tablet 00 daily. [facility] hydroCHLORO 2020-0 Yes [id number] 25mg Take 1 [facility] thiazide 25 7-09 tablet by [facility] of mg tablet 00:00: mouth [place] 00 daily. [facility] baclofen 10 2020-0 Yes [id number] 10mg Take 1 [facility] mg tablet 03-08 [id number] tablet by [facility] of 00:00: mouth 3 [place] 00 (three) Medical times Branch daily as needed for Pain (scale 4-6). metoprolol 2020-0 Yes [id number] 50mg Take 1 [facility] succinate 7-09 tablet by [facility] o f XL 50 mg 24 00:00: mouth [place] hr tablet 00 daily. [facility] hydroCHLORO 2020-0 Yes [id number] 25mg Take 1 [facility] thiazide 25 7-09 tablet by [facility] of mg tablet 00:00: mouth [place] 00 daily. [facility] baclofen 10 2020-0 Yes [id number] 10mg Take 1 [facility] mg tablet 7- [id number] tablet by [facility] of 00:00: mouth 3 [place] 00 (three) Medical times Branch daily as needed for Pain (scale 4-6). metoprolol 2020-0 Yes [id number] 50mg Take 1 [facility] succinate 7-09 tablet by ity o f XL 50 mg 24 00:00: mouth [place] hr tablet 00 daily. [facility] hydroCHLORO 2020-0 Yes [id number] 25mg Take 1 [facility] thiazide 25 7-09 tablet by [facility] of mg tablet 00:00: mouth [place] 00 daily. [facility] baclofen 10 2020-0 Yes [id number] 10mg Take 1 [facility] mg tablet 03-08 [id number] tablet by [facility] of 00:00: mouth 3 [place] 00 (three) Medical times Branch daily as needed for Pain (scale 4-6). metoprolol 2020-0 Yes [id number] 50mg Take 1 [facility] succinate 7-09 tablet by [facility] o f XL 50 mg 24 00:00: mouth [place] hr tablet 00 daily. [facility] hydroCHLORO 2020-0 Yes [id number] 25mg Take 1 [facility] thiazide 25 7-09 tablet by [facility] of mg tablet 00:00: mouth [place] 00 daily. [facility] baclofen 10 2019-0 Yes [id number] 10mg Take 1 [facility] mg tablet 03-08 [id number] tablet by [facility] of 00:00: mouth 3 [place] 00 (three) Medical times Branch daily as needed for Pain (scale 4-6). metoprolol 2020-0 Yes [id number] 50mg Take 1 [facility] n[facility] succinate 7-09 tablet by it[facility] o f XL 50 mg 24 00:00: mouth [place] hr tablet 00 daily. [facility] hydroCHLORO 2020-0 Yes [id number] 25mg Take 1 [facility] thiazide 25 7-09 tablet by [facility] of mg tablet 00:00: mouth [place] 00 daily. [facility] baclofen 10 2019-0 Yes [id number] 10mg Take 1 [facility] mg tablet 03-08 [id number] tablet by [facility] of 00:00: mouth 3 [place] 00 (three) Medical times Branch daily as needed for Pain (scale 4-6). metoprolol 2020-0 Yes [id number] 50mg Take 1 [facility] succinate 7-09 tablet by [facility] o f XL 50 mg 24 00:00: mouth [place] hr tablet 00 daily. [facility] hydroCHLORO 2020-0 Yes [id number] 25mg Take 1 [facility] thiazide 25 7-09 tablet by [facility] of mg tablet 00:00: mouth [place] 00 daily. [facility] baclofen 10 2020-0 Yes [id number] 10mg Take 1 [facility] mg tablet 03-08 [id number] tablet by [facility] of 00:00: mouth 3 [place] 00 (three) Medical times Branch daily as needed for Pain (scale 4-6). metoprolol 2020-0 Yes [id number] 50mg Take 1 [facility] succinate 7-09 tablet by [facility] o f XL 50 mg 24 00:00: mouth [place] hr tablet 00 daily. [facility] hydroCHLORO 2020-0 Yes [id number] 25mg Take 1 [facility] thiazide 25 7-09 tablet by [facility] of mg tablet 00:00: mouth [place] 00 daily. [facility] baclofen 10 2020-0 Yes [id number] 10mg Take 1 [facility] mg tablet 7- [id number] tablet by [facility] of 00:00: mouth 3 [place] 00 (three) Medical times Branch daily as needed for Pain (scale 4-6). metoprolol 2020-0 Yes [id number] 50mg Take 1 [facility] succinate 7-09 tablet by it[facility] o f XL 50 mg 24 00:00: mouth [place] hr tablet 00 daily. [facility] hydroCHLORO 2020-0 Yes [id number] 25mg Take 1 [facility] thiazide 25 7-09 tablet by [facility] of mg tablet 00:00: mouth [place] 00 daily. [facility] baclofen 10 2020-0 Yes [id number] 10mg Take 1 [facility] mg tablet 7- [id number] tablet by [facility] of 00:00: mouth 3 [place] 00 (three) Medical times Branch daily as needed for Pain (scale 4-6). metoprolol 2020-0 Yes [id number] 50mg Take 1 [facility] succinate 7-09 tablet by [facility] o f XL 50 mg 24 00:00: mouth [place] hr tablet 00 daily. [facility] hydroCHLORO 2020-0 Yes [id number] 25mg Take 1 [facility] thiazide 25 7-09 tablet by [facility] of mg tablet 00:00: mouth [place] 00 daily. [facility] baclofen 10 2020-0 Yes [id number] 10mg Take 1 [facility] mg tablet 7- [id number] tablet by [facility] of 00:00: mouth 3 [place] 00 (three) Medical times Branch daily as needed for Pain (scale 4-6). metoprolol 2020-0 Yes [id number] 50mg Take 1 [facility] succinate 7-09 tablet by ity o f XL 50 mg 24 00:00: mouth [place] hr tablet 00 daily. [facility] hydroCHLORO 2020-0 Yes [id number] 25mg Take 1 [facility] thiazide 25 7-09 tablet by [facility] of mg tablet 00:00: mouth [place] 00 daily. [facility] baclofen 10 2020-0 Yes [id number] 10mg Take 1 [facility] mg tablet 03-08 [id number] tablet by [facility] of 00:00: mouth 3 [place] 00 (three) Medical times Branch daily as needed for Pain (scale 4-6). metoprolol 2020-0 Yes [id number] 50mg Take 1 [facility] succinate 7-09 tablet by [facility] o f XL 50 mg 24 00:00: mouth [place] hr tablet 00 daily. [facility] hydroCHLORO 2020-0 Yes [id number] 25mg Take 1 [facility] thiazide 25 7-09 tablet by [facility] of mg tablet 00:00: mouth [place] 00 daily. [facility] baclofen 10 2020-0 Yes [id number] 10mg Take 1 [facility] mg tablet 03-08 [id number] tablet by [facility] of 00:00: mouth 3 [place] 00 (three) Medical times Branch daily as needed for Pain (scale 4-6). metoprolol 2020-0 Yes [id number] 50mg Take 1 [facility] succinate 7-09 tablet by ity o f XL 50 mg 24 00:00: mouth [place] hr tablet 00 daily. [facility] hydroCHLORO 2020-0 Yes [id number] 25mg Take 1 [facility] thiazide 25 7-09 tablet by [facility] of mg tablet 00:00: mouth [place] 00 daily. [facility] baclofen 10 2020-0 Yes [id number] 10mg Take 1 [facility] mg tablet 03-08 [id number] tablet by [facility] of 00:00: mouth 3 [place] 00 (three) Medical times Branch daily as needed for Pain (scale 4-6). metoprolol 2020-0 Yes [id number] 50mg Take 1 [facility] n[facility] succinate 7-09 tablet by ity o f XL 50 mg 24 00:00: mouth [place] hr tablet 00 daily. [facility] hydroCHLORO 2020-0 Yes [id number] 25mg Take 1 [facility] thiazide 25 7-09 tablet by [facility] of mg tablet 00:00: mouth [place] 00 daily. [facility] baclofen 10 2020-0 Yes [id number] 10mg Take 1 [facility] mg tablet 7- [id number] tablet by [facility] of 00:00: mouth 3 [place] 00 (three) Medical times Branch daily as needed for Pain (scale 4-6). metoprolol 2020-0 Yes [id number] 50mg Take 1 [facility] n[facility] succinate 7-09 tablet by ity o f XL 50 mg 24 00:00: mouth [place] hr tablet 00 daily. [facility] hydroCHLORO 2020-0 Yes [id number] 25mg Take 1 [facility] thiazide 25 7-09 tablet by [facility] of mg tablet 00:00: mouth [place] 00 daily. [facility] baclofen 10 2020-0 Yes [id number] 10mg Take 1 [facility] mg tablet 7- [id number] tablet by [facility] of 00:00: mouth 3 [place] 00 (three) Medical times Branch daily as needed for Pain (scale 4-6). metoprolol 2020-0 Yes [id number] 50mg Take 1 [facility] n[facility] succinate 7-09 tablet by ity o f XL 50 mg 24 00:00: mouth [place] hr tablet 00 daily. [facility] hydroCHLORO 2020-0 Yes [id number] 25mg Take 1 [facility] thiazide 25 7-09 tablet by [facility] of mg tablet 00:00: mouth [place] 00 daily. [facility] baclofen 10 2020-0 Yes [id number] 10mg Take 1 [facility] mg tablet 7 [id number] tablet by [facility] of 00:00: mouth 3 [place] 00 (three) Medical times Branch daily as needed for Pain (scale 4-6). metoprolol 2020-0 Yes [id number] 50mg Take 1 [facility] n[facility] succinate 7-09 tablet by it[facility] o f XL 50 mg 24 00:00: mouth [place] hr tablet 00 daily. [facility] hydroCHLORO 2020-0 Yes [id number] 25mg Take 1 [facility] thiazide 25 7-09 tablet by [facility] of mg tablet 00:00: mouth [place] 00 daily. [facility] baclofen 10 2020-0 Yes [id number] 10mg Take 1 [facility] mg tablet 03-08 [id number] tablet by ity of 00:00: mouth 3 [...] mouth ity of 14:58: daily. [place] [address] [facility] DULOXETINE 2020-0 Yes 60mg Take 60 mg U nivers HCL 2-25 by mouth 3 ity of (CYMBALTA 14:58: (three) [place] ORAL) 32 times Medical daily. Branch VITAMIN B 2020-0 Yes Take by Unive rs COMPLEX 2-25 mouth. ity of ORAL 14:58: [place] [address] [facility] traZODONE 2020-0 Yes 100mg Take 100 [facility] vers 100 mg 2-25 mg by ity of tablet 14:58: mouth at [place] [address] bedtime. [facility] benztropine 2020-0 Yes 1mg Take 1 mg [facility] nivers 1 mg tablet 2-25 by mouth ity of 14:58: daily. [place] [address] [facility] DULOXETINE 2020-0 Yes 60mg Take 60 mg U nivers HCL 2-25 by mouth 3 ity of (CYMBALTA 14:58: (three) [place] ORAL) 32 times Medical daily. Branch VITAMIN B 2020-0 Yes Take by Unive rs COMPLEX 2-25 mouth. ity of ORAL 14:58: [place] [address] [facility] traZODONE 2020-0 Yes 100mg Take 100 [facility] vers 100 mg 2-25 mg by ity of tablet 14:58: mouth at [place] [address] bedtime. [facility] benztropine 2020-0 Yes 1mg Take 1 mg [facility] nivers 1 mg tablet 2-25 by mouth ity of 14:58: daily. [place] [address] [facility] DULOXETINE 2020-0 Yes 60mg Take 60 mg U nivers HCL 2-25 by mouth 3 ity of (CYMBALTA 14:58: (three) [place] ORAL) 32 times Medical daily. Branch VITAMIN B 2020-0 Yes Take by Unive rs COMPLEX 2-25 mouth. ity of ORAL 14:58: [place] [address] [facility] traZODONE 2020-0 Yes 100mg Take 100 [facility] vers 100 mg 2-25 mg by ity of tablet 14:58: mouth at [place] [address] bedtime. [facility] benztropine 2020-0 Yes 1mg Take 1 mg [facility] nivers 1 mg tablet 2-25 by mouth ity of 14:58: daily. [place] [address] [facility] DULOXETINE 2020-0 Yes 60mg Take 60 mg U nivers HCL 2-25 by mouth 3 ity of (CYMBALTA 14:58: (three) [place] ORAL) 32 times Medical daily. Branch VITAMIN B 2020-0 Yes Take by Unive rs COMPLEX 2-25 mouth. ity of ORAL 14:58: [place] [address] [facility] traZODONE 2020-0 Yes 100mg Take 100 [facility] vers 100 mg 2-25 mg by ity of tablet 14:58: mouth at [place] [address] bedtime. [facility] benztropine 2020-0 Yes 1mg Take 1 mg [facility] nivers 1 mg tablet 2-25 by mouth ity of 14:58: daily. [place] [address] [facility] DULOXETINE 2020-0 Yes 60mg Take 60 mg U nivers HCL 2-25 by mouth 3 ity of (CYMBALTA 14:58: (three) [place] ORAL) 32 times Medical daily. Branch VITAMIN B 2020-0 Yes Take by Unive rs COMPLEX 2-25 mouth. ity of ORAL 14:58: [place] [address] [facility] traZODONE 2020-0 Yes 100mg Take 100 [facility] vers 100 mg 2-25 mg by ity of tablet 14:58: mouth at [place] [address] bedtime. [facility] benztropine 2020-0 Yes 1mg Take 1 mg [facility] nivers 1 mg tablet 2-25 by mouth ity of 14:58: daily. [place] [address] [facility] DULOXETINE 2020-0 Yes 60mg Take 60 mg U nivers HCL 2-25 by mouth 3 ity of (CYMBALTA 14:58: (three) [place] ORAL) 32 times Medical daily. Branch VITAMIN B 2020-0 Yes Take by [facility] rs COMPLEX 2-25 mouth. ity of ORAL 14:58: [place] [address] [facility] traZODONE 2020-0 Yes 100mg Take 100 [facility] vers 100 mg 2-25 mg by ity of tablet 14:58: mouth at [place] [address] bedtime. [facility] benztropine 2020-0 Yes 1mg Take 1 mg [facility] nivers 1 mg tablet 2-25 by mouth ity of 14:58: daily. [place] [address] [facility] DULOXETINE 2020-0 Yes 60mg Take 60 mg U nivers HCL 2-25 by mouth 3 ity of (CYMBALTA 14:58: (three) [place] ORAL) 32 times Medical daily. Branch VITAMIN B 2020-0 Yes Take by [facility] rs COMPLEX 2-25 mouth. ity of ORAL 14:58: [place] [address] [facility] traZODONE 2020-0 Yes 100mg Take 100 [facility] vers 100 mg 2-25 mg by ity of tablet 14:58: mouth at [place] [address] bedtime. [facility] benztropine 2020-0 Yes 1mg Take 1 mg [facility] nivers 1 mg tablet 2-25 by mouth ity of 14:58: daily. [place] [address] [facility] DULOXETINE 2020-0 Yes 60mg Take 60 mg U nivers HCL 2-25 by mouth 3 ity of (CYMBALTA 14:58: (three) [place] ORAL) 32 times Medical daily. Branch VITAMIN B 2020-0 Yes Take by Unive rs COMPLEX 2-25 mouth. ity of ORAL 14:58: [place] [address] [facility] traZODONE 2020-0 Yes 100mg Take 100 [facility] vers 100 mg 2-25 mg by ity of tablet 14:58: mouth at [place] [address] bedtime. [facility] benztropine 2020-0 Yes 1mg Take 1 mg U nivers 1 mg tablet 2-25 by mouth ity of 14:58: daily. [place] [address] [facility] DULOXETINE 2020-0 Yes 60mg Take 60 mg U nivers HCL 2-25 by mouth 3 ity of (CYMBALTA 14:58: (three) [place] ORAL) 32 times Medical daily. Branch VITAMIN B 2020-0 Yes Take by Unive rs COMPLEX 2-25 mouth. ity of ORAL 14:58: [place] [address] [facility] traZODONE 2020-0 Yes 100mg Take 100 [facility] vers 100 mg 2-25 mg by ity of tablet 14:58: mouth at [place] [address] bedtime. [facility] benztropine 2020-0 Yes 1mg Take 1 mg U nivers 1 mg tablet 2-25 by mouth ity of 14:58: daily. [place] [address] [facility] DULOXETINE 2020-0 Yes 60mg Take 60 mg U nivers HCL 2-25 by mouth 3 ity of (CYMBALTA 14:58: (three) [place] ORAL) 32 times Medical daily. Branch VITAMIN B 2020-0 Yes Take by Un[facility] rs COMPLEX 2-25 mouth. ity of ORAL 14:58: [place] [address] [facility] traZODONE 2020-0 Yes 100mg Take 100 [facility] vers 100 mg 2-25 mg by ity of tablet 14:58: mouth at [place] [address] bedtime. [facility] benztropine 2020-0 Yes 1mg Take 1 mg U nivers 1 mg tablet 2-25 by mouth ity of 14:58: daily. [place] [address] [facility] DULOXETINE 2020-0 Yes 60mg Take 60 mg U nivers HCL 2-25 by mouth 3 ity of (CYMBALTA 14:58: (three) [place] ORAL) 32 times Medical daily. Branch VITAMIN B 2020-0 Yes Take by Unive rs COMPLEX 2-25 mouth. ity of ORAL 14:58: [place] [address] [facility] traZODONE 2020-0 Yes 100mg Take 100 [facility] vers 100 mg 2-25 mg by ity of tablet 14:58: mouth at [place] [address] bedtime. [facility] benztropine 2020-0 Yes 1mg Take 1 mg U nivers 1 mg tablet 2-25 by mouth ity of 14:58: daily. [place] [address] [facility] DULOXETINE 2020-0 Yes 60mg Take 60 mg U nivers HCL 2-25 by mouth 3 ity of (CYMBALTA 14:58: (three) [place] ORAL) 32 times Medical daily. Branch VITAMIN B 2020-0 Yes Take by Unive rs COMPLEX 2-25 mouth. ity of ORAL 14:58: [place] [address] [facility] traZODONE 2020-0 Yes 100mg Take 100 [facility] vers 100 mg 2-25 mg by ity of tablet 14:58: mouth at [place] [address] bedtime. [facility] benztropine 2020-0 Yes 1mg Take 1 mg U nivers 1 mg tablet 2-25 by mouth ity of 14:58: daily. [place] [address] [facility] DULOXETINE 2020-0 Yes 60mg Take 60 mg U nivers HCL 2-25 by mouth 3 ity of (CYMBALTA 14:58: (three) [place] ORAL) 32 times Medical daily. Branch VITAMIN B 2020-0 Yes Take by Un[facility] rs COMPLEX 2-25 mouth. ity of ORAL 14:58: [place] [address] [facility] traZODONE 2020-0 Yes 100mg Take 100 [facility] vers 100 mg 2-25 mg by ity of tablet 14:58: mouth at [place] [address] bedtime. [facility] benztropine 2020-0 Yes 1mg Take 1 mg U nivers 1 mg tablet 2-25 by mouth ity of 14:58: daily. [place] [address] [facility] DULOXETINE 2020-0 Yes 60mg Take 60 mg U nivers HCL 2-25 by mouth 3 ity of (CYMBALTA 14:58: (three) [place] ORAL) 32 times Medical daily. Branch VITAMIN B 2020-0 Yes Take by Un[facility] rs COMPLEX 2-25 mouth. ity of ORAL 14:58: [place] [address] [facility] traZODONE 2020-0 Yes 100mg Take 100 [facility] vers 100 mg 2-25 mg by ity of tablet 14:58: mouth at [place] [address] bedtime. [facility] benztropine 2020-0 Yes 1mg Take 1 mg U nivers 1 mg tablet 2-25 by mouth ity of 14:58: daily. [place] [address] [facility] DULOXETINE 2020-0 Yes 60mg Take 60 mg U nivers HCL 2-25 by mouth 3 ity of (CYMBALTA 14:58: (three) [place] ORAL) 32 times Medical daily. Branch VITAMIN B 2020-0 Yes Take by [facility] rs COMPLEX 2-25 mouth. ity of ORAL 14:58: [place] [address] [facility] traZODONE 2020-0 Yes 100mg Take 100 [facility] vers 100 mg 2-25 mg by ity of tablet 14:58: mouth at [place] [address] bedtime. [facility] benztropine 2020-0 Yes 1mg Take 1 mg U nivers 1 mg tablet 2-25 by mouth ity of 14:58: daily. [place] [address] [facility] Branch DULOXETINE 2020-0 Yes 60mg Take 60 mg U nivers HCL 2-25 by mouth 3 ity of (CYMBALTA 14:58: (three) [place] ORAL) 32 times Medical daily. Branch VITAMIN B 2020-0 Yes Take by Un[facility] rs COMPLEX 2-25 mouth. ity of ORAL 14:58: [place] [address] [facility] traZODONE 2020-0 Yes 100mg Take 100 [facility] vers 100 mg 2-25 mg by ity of tablet 14:58: mouth at [place] [address] bedtime. [facility] Branch benztropine 2020-0 Yes 1mg Take 1 mg U nivers 1 mg tablet 2-25 by mouth ity of 14:58: daily. [place] [address] [facility] Branch VITAMIN B 2020-0 Yes Take by Un[facility] rs COMPLEX 2-25 mouth. ity of ORAL 14:58: [place] [address] [facility] traZODONE 2020-0 Yes 100mg Take 100 [facility] vers 100 mg 2-25 mg by ity of tablet 14:58: mouth at [place] [address] bedtime. [facility] Branch benztropine 2020-0 Yes 1mg Take 1 mg U nivers 1 mg tablet 2-25 by mouth ity of 14:58: daily. [address] VITAMIN B 2020-0 Yes Take by Un[facility] rs COMPLEX 2-25 mouth. ity of ORAL 14:58: [address] traZODONE 2020-0 Yes 100mg Take 100 [facility] vers 100 mg 2-25 mg by ity of tablet 14:58: mouth at [place] [address] bedtime. [facility] benztropine 2020-0 Yes 1mg Take 1 mg U nivers 1 mg tablet 2-25 by mouth ity of 14:58: daily. [address] VITAMIN B 2020-0 Yes Take by Unive rs COMPLEX 2-25 mouth. ity of ORAL 14:58: [address] traZODONE 2020-0 Yes 100mg Take 100 [facility] vers 100 mg 2-25 mg by ity of tablet 14:58: mouth at [place] [address] bedtime. [facility] benztropine 2020-0 Yes 1mg Take 1 mg U nivers 1 mg tablet 2-25 by mouth ity of 14:58: daily. [address] VITAMIN B 2020-0 Yes Take by Unive rs COMPLEX 2-25 mouth. ity of ORAL 14:58: [address] traZODONE 2020-0 Yes 100mg Take 100 [facility] vers 100 mg 2-25 mg by ity of tablet 14:58: mouth at [place] [address] bedtime. [facility] benztropine 2020-0 Yes 1mg Take 1 mg U nivers 1 mg tablet 2-25 by mouth ity of 14:58: daily. [address] VITAMIN B 2020-0 Yes Take by Unive rs COMPLEX 2-25 mouth. ity of ORAL 14:58: [address] traZODONE 2020-0 Yes 100mg Take 100 [facility] vers 100 mg 2-25 mg by ity of tablet 14:58: mouth at [place] [address] bedtime. [facility] benztropine 2020-0 Yes 1mg Take 1 mg U nivers 1 mg tablet 2-25 by mouth ity of 14:58: daily. [address] VITAMIN B 2020-0 Yes Take by Un[facility] rs COMPLEX 2-25 mouth. ity of ORAL 14:58: [address] traZODONE 2020-0 Yes 100mg Take 100 [facility] vers 100 mg 2-25 mg by ity of tablet 14:58: mouth at [place] [address] bedtime. Medical Branch benztropine 2020-0 Yes 1mg Take 1 mg U nivers 1 mg tablet 2-25 by mouth ity of 14:58: daily. [address] VITAMIN B 2020-0 Yes Take by Unive rs COMPLEX 2-25 mouth. ity of ORAL 14:58: [address] traZODONE 2020-0 Yes 100mg Take 100 [facility] vers 100 mg 2-25 mg by ity of tablet 14:58: mouth at [place] [address] bedtime. [facility] Branch benztropine 2020-0 Yes 1mg Take 1 mg U nivers 1 mg tablet 2-25 by mouth ity of 14:58: daily. [address] VITAMIN B 2020-0 Yes Take by [facility] rs COMPLEX 2-25 mouth. ity of ORAL 14:58: [address] traZODONE 2020-0 Yes 100mg Take 100 [facility] vers 100 mg 2-25 mg by ity of tablet 14:58: mouth at [place] [address] bedtime. [facility] Branch benztropine 2020-0 Yes 1mg Take 1 mg U nivers 1 mg tablet 2-25 by mouth ity of 14:58: daily. [address] VITAMIN B 2020-0 Yes Take by Unive rs COMPLEX 2-25 mouth. ity of ORAL 14:58: [address] traZODONE 2020-0 Yes 100mg Take 100 [facility] vers 100 mg 2-25 mg by ity of tablet 14:58: mouth at [place] [address] bedtime. Medical Branch benztropine 2020-0 Yes 1mg Take 1 mg U nivers 1 mg tablet 2-25 by mouth ity of 14:58: daily. [address] VITAMIN B 2020-0 Yes Take by Un[facility] rs COMPLEX 2-25 mouth. ity of ORAL 14:58: [address] traZODONE 2020-0 Yes 100mg Take 100 [facility] vers 100 mg 2-25 mg by ity of tablet 14:58: mouth at [place] [address] bedtime. Medical Branch benztropine 2020-0 Yes 1mg Take 1 mg U nivers 1 mg tablet 2-25 by mouth ity of 14:58: daily. [address] VITAMIN B 2020-0 Yes Take by Un[facility] rs COMPLEX 2-25 mouth. ity of ORAL 14:58: [address] traZODONE 2020-0 Yes 100mg Take 100 [facility] vers 100 mg 2-25 mg by ity of tablet 14:58: mouth at [place] [address] bedtime. Medical Branch benztropine 2020-0 Yes 1mg Take 1 mg U nivers 1 mg tablet 2-25 by mouth ity of 14:58: daily. [address] VITAMIN B 2020-0 Yes Take by [facility] rs COMPLEX 2-25 mouth. ity of ORAL 14:58: [address] traZODONE 2020-0 Yes 100mg Take 100 [facility] vers 100 mg 2-25 mg by ity of tablet 14:58: mouth at [place] [address] bedtime. Medical Branch benztropine 2020-0 Yes 1mg Take 1 mg U nivers 1 mg tablet 2-25 by mouth ity of 14:58: daily. [address] VITAMIN B 2020-0 Yes Take by Un[facility] rs COMPLEX 2-25 mouth. ity of ORAL 14:58: [address] traZODONE 2020-0 Yes 100mg Take 100 [facility] vers 100 mg 2-25 mg by ity of tablet 14:58: mouth at [place] [address] bedtime. Medical Branch benztropine 2020-0 Yes 1mg Take 1 mg U nivers 1 mg tablet 2-25 by mouth ity of 14:58: daily. [address] VITAMIN B 2020-0 Yes Take by Unive rs COMPLEX 2-25 mouth. ity of ORAL 14:58: [address] traZODONE 2020-0 Yes 100mg Take 100 [facility] vers 100 mg 2-25 mg by ity of tablet 14:58: mouth at [place] [address] bedtime. Medical Branch benztropine 2020-0 Yes 1mg Take 1 mg U nivers 1 mg tablet 2-25 by mouth ity of 14:58: daily. [address] VITAMIN B 2020-0 Yes Take by Unive rs COMPLEX 2-25 mouth. ity of ORAL 14:58: [address] traZODONE 2020-0 Yes 100mg Take 100 Uni vers 100 mg 2-25 mg by ity of tablet 14:58: mouth at [place] [address] bedtime. [facility] benztropine 2020-0 Yes 1mg Take 1 mg U nivers 1 mg tablet 2-25 by mouth ity of 14:58: daily. [address] aripiprazol 2020-0 Yes 5mg Take 5 [...] 2-24 by mouth ity of 17:16: daily. [place] [address] Medical Branch ARIPiprazol 2020-0 Yes 10mg Take [...] 2-24 by mouth ity of 17:16: daily. [place] [address] [facility] Branch ARIPiprazol 2020-0 Yes 10mg Take [...] 2-24 by mouth ity of 17:16: daily. [place] [address] [facility] Branch ARIPiprazol 2020-0 Yes 10mg Take [...] :00 daily. [facility] metoprolol 2019-0 Yes [id number] 50mg Take 1 Un nneka succinate 2-24 tablet by ity o f XL 50 mg 24 00:00: mouth [place] hr tablet 00 daily. [facility] metoprolol 2019-0 Yes [id number] 50mg Take 1 Un nneka succinate 2-24 tablet by ity o f XL 50 mg 24 00:00: mouth [place] hr tablet 00 daily. [facility] metoprolol 2019-0 Yes [id number] 50mg Take 1 Un nneka succinate 2-24 tablet by ity o f XL 50 mg 24 00:00: mouth [place] hr tablet 00 daily. [facility] metoprolol 2020-0 Yes [id number] 50mg Take 1 Un nneka succinate 2-24 tablet by ity o f XL 50 mg 24 00:00: mouth [place] hr tablet 00 daily. [facility] metoprolol 2019-0 Yes [id number] 50mg Take 1 Un nneka succinate 2-24 tablet by ity o f XL 50 mg 24 00:00: mouth [place] hr tablet 00 daily. [facility] metoprolol 2020-0 Yes [id number] 50mg Take 1 Un nneka succinate 2-24 tablet by ity o f XL 50 mg 24 00:00: mouth [place] hr tablet 00 daily. [facility] metoprolol 2019-0 Yes [id number] 50mg Take 1 Un nneka succinate 2-24 tablet by ity o f XL 50 mg 24 00:00: mouth [place] hr tablet 00 daily. [facility] metoprolol 2019-0 Yes [id number] 50mg Take 1 Un nneka succinate 2-24 tablet by ity o f XL 50 mg 24 00:00: mouth [place] hr tablet 00 daily. [facility] metoprolol 0 Yes [id number] 50mg Take 1 Un nneka succinate 2-24 tablet by ity o f XL 50 mg 24 00:00: mouth [place] hr tablet 00 daily. [facility] metoprolol 0 Yes [id number] 50mg Take 1 Un nneka succinate 2-24 tablet by ity o f XL 50 mg 24 00:00: mouth [place] hr tablet 00 daily. [facility] metoprolol 0 2020- No [id number] 50mg Take 1 U nivers succinate 2-24 07-09 tablet by ity of XL 50 mg 24 00:00: 00:00 [place] tablet 00 :00 daily. [facility] metoprolol 0 2020- No [id number] 50mg Take 1 U nivers succinate 2-24 07-09 tablet by ity of XL 50 mg 24 00:00: 00:00 [place] hr tablet 00 :00 daily. [facility] metoprolol 2019-0 2020- No [id number] 50mg Take 1 U nivers succinate 2-24 07-09 tablet by ity of XL 50 mg 24 00:00: 00:00 [place] hr tablet 00 :00 daily. [facility] metoprolol 0 2020- No [id number] 50mg Take 1 U nivers succinate 2-24 07-09 tablet by ity of XL 50 mg 24 00:00: 00:00 [place] hr tablet 00 :00 daily. [facility] hydroCHLORO 2020-0 Yes [id number] 25mg Take 1 [facility] thiazide 25 1-30 tablet by ity of mg tablet 00:00: mouth [place] 00 daily. [facility] meloxicam 2019-0 Yes [id number] 15mg Take 1 U nivers 15 mg 1-30 tablet by ity of tablet 00:00: mouth [place] 00 daily. [facility] metoprolol 2020-0 Yes [id number] 25mg Take 1 Un nneka succinate 1-30 tablet by ity o f XL 25 mg 24 00:00: mouth [place] hr tablet 00 daily. [facility] pregabalin 2020-0 Yes [id number] 150mg Take 1 Univers (LYRICA) 1-30 capsule by ity o f 150 mg 00:00: mouth 2 [place] capsule 00 (two) Medical times Branch daily. hydroCHLORO 2020-0 Yes [id number] 25mg Take 1 [facility] thiazide 25 1-30 tablet by ity of mg tablet 00:00: mouth [place] 00 daily. [facility] meloxicam 2020-0 Yes [id number] 15mg Take 1 U nivers 15 mg 1-30 tablet by ity of tablet 00:00: mouth [place] 00 daily. [facility] metoprolol 2020-0 Yes [id number] 25mg Take 1 Un nneka succinate 1-30 tablet by ity o f XL 25 mg 24 00:00: mouth [place] hr tablet 00 daily. [facility] pregabalin 2020-0 Yes [id number] 150mg Take 1 [facility] (LYRICA) 1-30 capsule by ity o f 150 mg 00:00: mouth 2 [place] capsule 00 (two) Medical times Branch daily. hydroCHLORO 2020-0 Yes [id number] 25mg Take 1 [facility] thiazide 25 1-30 tablet by ity of mg tablet 00:00: mouth [place] 00 daily. [facility] meloxicam 2020-0 Yes [id number] 15mg Take 1 U nivers 15 mg 1-30 tablet by ity of tablet 00:00: mouth [place] 00 daily. [facility] pregabalin 2020-0 Yes [id number] 150mg Take 1 [facility] (LYRICA) 1-30 capsule by ity o f 150 mg 00:00: mouth 2 [place] capsule 00 (two) Medical times Branch daily. hydroCHLORO 2020-0 Yes [id number] 25mg Take 1 [facility] thiazide 25 1-30 tablet by ity of mg tablet 00:00: mouth [place] 00 daily. [facility] meloxicam 2020-0 Yes [id number] 15mg Take 1 U nivers 15 mg 1-30 tablet by ity of tablet 00:00: mouth [place] 00 daily. [facility] pregabalin 2020-0 Yes [id number] 150mg Take 1 [facility] (LYRICA) 1-30 capsule by ity o f 150 mg 00:00: mouth 2 [place] capsule 00 (two) Medical times Branch daily. hydroCHLORO 2020-0 Yes [id number] 25mg Take 1 [facility] thiazide 25 1-30 tablet by ity of mg tablet 00:00: mouth [place] 00 daily. Medical Branch meloxicam 2020-0 Yes [id number] 15mg Take 1 U nivers 15 mg 1-30 tablet by ity of tablet 00:00: mouth [place] 00 daily. [facility] Branch pregabalin 2020-0 Yes [id number] 150mg Take 1 [facility] (LYRICA) 1-30 capsule by ity o f 150 mg 00:00: mouth 2 [place] capsule 00 (two) Medical times Branch daily. hydroCHLORO 2020-0 Yes [id number] 25mg Take 1 [facility] thiazide 25 1-30 tablet by ity of mg tablet 00:00: mouth [place] 00 daily. [facility] Branch meloxicam 2020-0 Yes [id number] 15mg Take 1 U nivers 15 mg 1-30 tablet by ity of tablet 00:00: mouth [place] 00 daily. [facility] Branch pregabalin 2020-0 Yes [id number] 150mg Take 1 [facility] (LYRICA) 1-30 capsule by ity o f 150 mg 00:00: mouth 2 [place] capsule 00 (two) Medical times Branch daily. hydroCHLORO 2020-0 Yes [id number] 25mg Take 1 [facility] thiazide 25 1-30 tablet by ity of mg tablet 00:00: mouth [place] 00 daily. [facility] Branch meloxicam 2020-0 Yes [id number] 15mg Take 1 U nivers 15 mg 1-30 tablet by ity of tablet 00:00: mouth [place] 00 daily. [facility] Branch pregabalin 2020-0 Yes [id number] 150mg Take 1 Univers (LYRICA) 1-30 capsule by ity o f 150 mg 00:00: mouth 2 [place] capsule 00 (two) Medical times Branch daily. hydroCHLORO 2020-0 Yes [id number] 25mg Take 1 [facility] thiazide 25 1-30 tablet by ity of mg tablet 00:00: mouth [place] 00 daily. [facility] Branch meloxicam 2020-0 Yes [id number] 15mg Take 1 U nivers 15 mg 1-30 tablet by ity of tablet 00:00: mouth [place] 00 daily. [facility] Branch pregabalin 2020-0 Yes [id number] 150mg Take 1 Univers (LYRICA) 1-30 capsule by ity o f 150 mg 00:00: mouth 2 [place] capsule 00 (two) Medical times Branch daily. hydroCHLORO 2020-0 Yes [id number] 25mg Take 1 [facility] thiazide 25 1-30 tablet by ity of mg tablet 00:00: mouth [place] 00 daily. [facility] Branch meloxicam 2020-0 Yes [id number] 15mg Take 1 U nivers 15 mg 1-30 tablet by ity of tablet 00:00: mouth [place] 00 daily. [facility] Branch pregabalin 2020-0 Yes [id number] 150mg Take 1 Univers (LYRICA) 1-30 capsule by ity o f 150 mg 00:00: mouth 2 [place] capsule 00 (two) Medical times Branch daily. hydroCHLORO 2020-0 Yes [id number] 25mg Take 1 [facility] thiazide 25 1-30 tablet by ity of mg tablet 00:00: mouth [place] 00 daily. [facility] Branch meloxicam 2020-0 Yes [id number] 15mg Take 1 U nivers 15 mg 1-30 tablet by ity of tablet 00:00: mouth [place] 00 daily. [facility] Branch pregabalin 2020-0 Yes [id number] 150mg Take 1 Univers (LYRICA) 1-30 capsule by ity o f 150 mg 00:00: mouth 2 [place] capsule 00 (two) Medical times Branch daily. hydroCHLORO 2020-0 Yes [id number] 25mg Take 1 [facility] thiazide 25 1-30 tablet by ity of mg tablet 00:00: mouth [place] 00 daily. [facility] Branch meloxicam 2020-0 Yes [id number] 15mg Take 1 U nivers 15 mg 1-30 tablet by ity of tablet 00:00: mouth [place] 00 daily. [facility] Branch pregabalin 2020-0 Yes [id number] 150mg Take 1 Univers (LYRICA) 1-30 capsule by ity o f 150 mg 00:00: mouth 2 [place] capsule 00 (two) Medical times Branch daily. hydroCHLORO 2020-0 Yes [id number] 25mg Take 1 [facility] thiazide 25 1-30 tablet by ity of mg tablet 00:00: mouth [place] 00 daily. [facility] Branch meloxicam 2020-0 Yes [id number] 15mg Take 1 U nivers 15 mg 1-30 tablet by ity of tablet 00:00: mouth [place] 00 daily. [facility] Branch pregabalin 2020-0 Yes [id number] 150mg Take 1 Univers (LYRICA) 1-30 capsule by ity o f 150 mg 00:00: mouth 2 [place] capsule 00 (two) Medical times Branch daily. meloxicam 2020-0 Yes [id number] 15mg Take 1 U nivers 15 mg 1-30 tablet by ity of tablet 00:00: mouth [place] 00 daily. [facility] Branch pregabalin 2020-0 Yes [id number] 150mg Take 1 Univers (LYRICA) 1-30 capsule by ity o f 150 mg 00:00: mouth 2 [place] capsule 00 (two) Medical times Branch daily. meloxicam 2020-0 Yes [id number] 15mg Take 1 U nivers 15 mg 1-30 tablet by ity of tablet 00:00: mouth [place] 00 daily. [facility] Branch pregabalin 2020-0 Yes [id number] 150mg Take 1 Univers (LYRICA) 1-30 capsule by ity o f 150 mg 00:00: mouth 2 [place] capsule 00 (two) Medical times Branch daily. meloxicam 2020-0 Yes [id number] 15mg Take 1 U nivers 15 mg 1-30 tablet by ity of tablet 00:00: mouth [place] 00 daily. [facility] Branch pregabalin 2020-0 Yes [id number] 150mg Take 1 Univers (LYRICA) 1-30 capsule by ity o f 150 mg 00:00: mouth 2 [place] capsule 00 (two) Medical times Branch daily. meloxicam 2020-0 Yes [id number] 15mg Take 1 U nivers 15 mg 1-30 tablet by ity of tablet 00:00: mouth [place] 00 daily. Medical Branch pregabalin 2020-0 Yes [id number] 150mg Take 1 Univers (LYRICA) 1-30 capsule by ity o f 150 mg 00:00: mouth 2 [place] capsule 00 (two) Medical times Branch daily. meloxicam 2020-0 Yes [id number] 15mg Take 1 U nivers 15 mg 1-30 tablet by ity of tablet 00:00: mouth [place] 00 daily. Medical Branch pregabalin 2020-0 Yes [id number] 150mg Take 1 Univers (LYRICA) 1-30 capsule by ity o f 150 mg 00:00: mouth 2 [place] capsule 00 (two) Medical times Branch daily. meloxicam 2020-0 Yes [id number] 15mg Take 1 U nivers 15 mg 1-30 tablet by ity of tablet 00:00: mouth [place] 00 daily. Medical Branch pregabalin 2020-0 Yes [id number] 150mg Take 1 Univers (LYRICA) 1-30 capsule by ity o f 150 mg 00:00: mouth 2 [place] capsule 00 (two) Medical times Branch daily. meloxicam 2020-0 Yes [id number] 15mg Take 1 U nivers 15 mg 1-30 tablet by ity of tablet 00:00: mouth [place] 00 daily. [facility] Branch pregabalin 2020-0 Yes [id number] 150mg Take 1 Univers (LYRICA) 1-30 capsule by ity o f 150 mg 00:00: mouth 2 [place] capsule 00 (two) Medical times Branch daily. meloxicam 2020-0 Yes [id number] 15mg Take 1 U nivers 15 mg 1-30 tablet by ity of tablet 00:00: mouth [place] 00 daily. Medical Branch pregabalin 2020-0 Yes [id number] 150mg Take 1 Univers (LYRICA) 1-30 capsule by ity o f 150 mg 00:00: mouth 2 [place] capsule 00 (two) Medical times Branch daily. meloxicam 2020-0 Yes [id number] 15mg Take 1 U nivers 15 mg 1-30 tablet by ity of tablet 00:00: mouth [place] 00 daily. [facility] Branch pregabalin 2020-0 Yes [id number] 150mg Take 1 Univers (LYRICA) 1-30 capsule by ity o f 150 mg 00:00: mouth 2 [place] capsule 00 (two) Medical times Branch daily. meloxicam 2020-0 Yes [id number] 15mg Take 1 U nivers 15 mg 1-30 tablet by ity of tablet 00:00: mouth [place] 00 daily. Medical Branch pregabalin 2020-0 Yes [id number] 150mg Take 1 Univers (LYRICA) 1-30 capsule by ity o f 150 mg 00:00: mouth 2 [place] capsule 00 (two) Medical times Branch daily. meloxicam 2020-0 Yes [id number] 15mg Take 1 U nivers 15 mg 1-30 tablet by ity of tablet 00:00: mouth [place] 00 daily. [facility] Branch pregabalin 2020-0 Yes [id number] 150mg Take 1 Univers (LYRICA) 1-30 capsule by ity o f 150 mg 00:00: mouth 2 [place] capsule 00 (two) Medical times Branch daily. meloxicam 2020-0 Yes [id number] 15mg Take 1 U nivers 15 mg 1-30 tablet by ity of tablet 00:00: mouth [place] 00 daily. Medical Branch pregabalin 2020-0 Yes [id number] 150mg Take 1 Univers (LYRICA) 1-30 capsule by ity o f 150 mg 00:00: mouth 2 [place] capsule 00 (two) Medical times Branch daily. meloxicam 2020-0 Yes [id number] 15mg Take 1 U nivers 15 mg 1-30 tablet by ity of tablet 00:00: mouth [place] 00 daily. Medical Branch pregabalin 2020-0 Yes [id number] 150mg Take 1 Univers (LYRICA) 1-30 capsule by ity o f 150 mg 00:00: mouth 2 [place] capsule 00 (two) Medical times Branch daily. meloxicam 2020-0 Yes [id number] 15mg Take 1 U nivers 15 mg 1-30 tablet by ity of tablet 00:00: mouth [place] 00 daily. Medical Branch pregabalin 2020-0 Yes [id number] 150mg Take 1 Univers (LYRICA) 1-30 capsule by ity o f 150 mg 00:00: mouth 2 [place] capsule 00 (two) Medical times Branch daily. meloxicam 2020-0 Yes [id number] 15mg Take 1 U nivers 15 mg 1-30 tablet by ity of tablet 00:00: mouth [place] 00 daily. Medical Branch pregabalin 2020-0 Yes [id number] 150mg Take 1 Univers (LYRICA) 1-30 capsule by ity o f 150 mg 00:00: mouth 2 [place] capsule 00 (two) Medical times Branch daily. meloxicam 2020-0 Yes [id number] 15mg Take 1 U nivers 15 mg 1-30 tablet by ity of tablet 00:00: mouth [place] 00 daily. Medical Branch pregabalin 2020-0 Yes [id number] 150mg Take 1 Univers (LYRICA) 1-30 capsule by ity o f 150 mg 00:00: mouth 2 [place] capsule 00 (two) Medical times Branch daily. meloxicam 2020-0 Yes [id number] 15mg Take 1 U nivers 15 mg 1-30 tablet by ity of tablet 00:00: mouth [place] 00 daily. Medical Branch pregabalin 2020-0 Yes [id number] 150mg Take 1 Univers (LYRICA) 1-30 capsule by ity o f 150 mg 00:00: mouth 2 [place] capsule 00 (two) Medical times Branch daily. meloxicam 2019-0 Yes [id number] 15mg Take 1 U nivers 15 mg 1-30 tablet by ity of tablet 00:00: mouth [place] 00 daily. [facility] Branch meloxicam 2019-0 Yes [id number] 15mg Take 1 U nivers 15 mg 1-30 tablet by ity of tablet 00:00: mouth [place] 00 daily. [facility] Branch meloxicam 2019-0 Yes [id number] 15mg Take 1 U nivers 15 mg 1-30 tablet by ity of tablet 00:00: mouth [place] 00 daily. [facility] Branch meloxicam 2019-0 Yes [id number] 15mg Take 1 U nivers 15 mg 1-30 tablet by ity of tablet 00:00: mouth [place] 00 daily. [facility] Branch meloxicam 2019-0 Yes [id number] 15mg Take 1 U nivers 15 mg 1-30 tablet by ity of tablet 00:00: mouth [place] 00 daily. [facility] Branch meloxicam 2019-0 Yes [id number] 15mg Take 1 U nivers 15 mg 1-30 tablet by ity of tablet 00:00: mouth [place] 00 daily. [facility] Branch meloxicam 2019-0 Yes [id number] 15mg Take 1 U nivers 15 mg 1-30 tablet by ity of tablet 00:00: mouth [place] 00 daily. [facility] Branch meloxicam 2019-0 Yes [id number] 15mg Take 1 U nivers 15 mg 1-30 tablet by ity of tablet 00:00: mouth [place] 00 daily. Medical Branch pregabalin 2019-0 2020- No [id number] 150mg Take 1 Univers (LYRICA) 1-30 12-21 capsule by ity of 150 mg 00:00: 00:00 mouth 2 [place] capsule 00 :00 (two) Medical times Branch daily. hydroCHLORO 2019-0 2020- No [id number] 25mg Take 1 [facility] thiazide 25 1-30 07-09 tablet by it y of mg tablet 00:00: 00:00 mouth [place] 00 :00 daily. Medical Branch hydroCHLORO 2020-0 2020- No [id number] 25mg Take 1 [facility] thiazide 25 30 -09 tablet by it y of mg tablet 00:00: 00:00 mouth [place] 00 :00 daily. Medical Branch hydroCHLORO 2019- No [id number] 25mg Take 1 [facility] thiazide 25 30 -09 tablet by it y of mg tablet 00:00: 00:00 mouth [place] 00 :00 daily. Medical Branch hydroCHLORO 2019- No [id number] 25mg Take 1 [facility] thiazide 25 09-29- tablet by it y of mg tablet 00:00: 00:00 mouth [place] 00 :00 daily. Medical Branch metoprolol 2020- No [id number] 25mg Take 1 U nivers succinate 30 02-24 tablet by ity of XL 25 mg 24 00:00: 00:00 mouth [place] hr tablet 00 :00 daily. [facility] metoprolol 2019- No [id number] 25mg Take 1 U nivers succinate 30 02-24 tablet by ity of XL 25 mg 24 00:00: 00:00 mouth [place] hr tablet 00 :00 daily. [facility] metoprolol 2019- No [id number] 25mg Take 1 U nivers succinate 30 [...] COMPLEX 0-31 mouth. ity of ORAL 17:11: [address] Branch traZODONE 2018-08 Yes 100mg Take 100 Uni vers 100 mg 0-31 mg by ity of tablet 17:11: mouth at [place] [address] bedtime. Medical Branch VITAMIN B 2018-08 Yes Take by Unive rs COMPLEX 0-31 mouth. ity of ORAL 17:11: [address] Branch traZODONE 2018-08 Yes 100mg Take 100 Uni vers 100 mg 0-31 mg by ity of tablet 17:11: mouth at [place] [address] bedtime. Medical Branch VITAMIN B 2018-08 Yes Take by Unive rs COMPLEX 0-31 mouth. ity of ORAL 17:11: [address] Branch traZODONE 2018-08 Yes 100mg Take 100 Uni vers 100 mg 0-31 mg by ity of tablet 17:11: mouth at [place] [address] bedtime. Medical Branch VITAMIN B 2018-08 Yes Take by Unive rs COMPLEX 0-31 mouth. ity of ORAL 17:11: [address] Branch traZODONE 2018-08 Yes 100mg Take 100 Uni vers 100 mg 0-31 mg by ity of tablet 17:11: mouth at [place] [address] bedtime. Medical Branch traZODONE Yes 100mg Take 100 Uni vers 100 mg 8-29 mg by ity of tablet 19:24: mouth at [place] [address] bedtime. Medical Branch traZODONE Yes 100mg Take 100 Uni vers 100 mg 8-29 mg by ity of tablet 19:24: mouth at [place] [address] bedtime. Medical Branch traZODONE Yes 100mg Take 100 Uni vers 100 mg 8-29 mg by ity of tablet 19:24: mouth at [place] [address] bedtime. Medical Branch traZODONE Yes 100mg Take 100 Uni vers 100 mg 8-29 mg by ity of tablet 19:24: mouth at [place] [address] bedtime. Medical Branch traZODONE Yes 100mg Take 100 Uni vers 100 mg 8-29 mg by ity of tablet 19:24: mouth at [place] [address] bedtime. Medical Branch traZODONE Yes 100mg Take 100 Uni vers 100 mg 8-29 mg by ity of tablet 19:24: mouth at [place] [address] bedtime. Medical Branch benztropine Yes 1mg Take [...] 8-29 by mouth ity of 14:39: daily. [address] ARIPiprazol Yes 10mg Take 10 mg [...] 8-29 by mouth ity of 14:39: daily. [address] Branch ARIPiprazol Yes 10mg Take 10 mg [...] 14:39: daily. [place] 21 Medical Branch ARIPiprazol 0 Yes 10mg Take [...] mouth ity of 14:39: daily. [place] [facility] Branch ARIPiprazol Yes 10mg Take 10 [...] 8-29 by mouth ity of 14:39: daily. [place] [address] Medical Branch ARIPiprazol 0 Yes 10mg Take [...] 21 times Medical daily. Branch metoprolol Yes [id number] 25mg Take 1 Un nneka succinate 8-29 tablet by ity o f XL 25 mg 24 00:00: mouth [place] hr tablet 00 daily. Medical Branch hydroCHLORO Yes [id number] 25mg Take 1 [facility] thiazide 25 8-29 tablet by ity of mg tablet 00:00: mouth [place] 00 daily. Medical Branch meloxicam Yes [id number] 15mg Take 1 U nivers 15 mg 8-29 tablet by ity of tablet 00:00: mouth [place] 00 daily. Medical Branch metoprolol Yes [id number] 25mg Take 1 Un nneka succinate 8-29 tablet by ity o f XL 25 mg 24 00:00: mouth [place] hr tablet 00 daily. Medical Branch hydroCHLORO Yes [id number] 25mg Take 1 [facility] thiazide 25 8-29 tablet by ity of mg tablet 00:00: mouth [place] 00 daily. Medical Branch meloxicam Yes [id number] 15mg Take 1 U nivers 15 mg 8-29 tablet by ity of tablet 00:00: mouth [place] 00 daily. Medical Branch metoprolol Yes [id number] 25mg Take 1 Un nneka succinate 8-29 tablet by ity o f XL 25 mg 24 00:00: mouth [place] hr tablet 00 daily. Medical Branch hydroCHLORO Yes [id number] 25mg Take 1 [facility] thiazide 25 8-29 tablet by ity of mg tablet 00:00: mouth [place] 00 daily. Medical Branch meloxicam Yes [id number] 15mg Take 1 U nivers 15 mg 8-29 tablet by ity of tablet 00:00: mouth [place] 00 daily. Medical Branch metoprolol Yes [id number] 25mg Take 1 Un nneka succinate 8-29 tablet by ity o f XL 25 mg 24 00:00: mouth [place] hr tablet 00 daily. Medical Branch hydroCHLORO Yes [id number] 25mg Take 1 [facility] thiazide 25 8-29 tablet by ity of mg tablet 00:00: mouth [place] 00 daily. Medical Branch meloxicam Yes [id number] 15mg Take 1 U nivers 15 mg 8-29 tablet by ity of tablet 00:00: mouth [place] 00 daily. Medical Branch metoprolol Yes [id number] 25mg Take 1 Un nneka succinate 8-29 tablet by ity o f XL 25 mg 24 00:00: mouth [place] hr tablet 00 daily. Medical Branch hydroCHLORO Yes [id number] 25mg Take 1 [facility] thiazide 25 8-29 tablet by ity of mg tablet 00:00: mouth [place] 00 daily. Medical Branch meloxicam Yes [id number] 15mg Take 1 U nivers 15 mg 8-29 tablet by ity of tablet 00:00: mouth [place] 00 daily. Medical Branch metoprolol Yes [id number] 25mg Take 1 Un nneka succinate 8-29 tablet by ity o f XL 25 mg 24 00:00: mouth [place] hr tablet 00 daily. Medical Branch hydroCHLORO Yes [id number] 25mg Take 1 [facility] thiazide 25 8-29 tablet by ity of mg tablet 00:00: mouth [place] 00 daily. Medical Branch meloxicam Yes [id number] 15mg Take 1 U nivers 15 mg 8-29 tablet by ity of tablet 00:00: mouth [place] 00 daily. Medical Branch metoprolol Yes [id number] 25mg Take 1 Un nneka succinate 8-29 tablet by ity o f XL 25 mg 24 00:00: mouth [place] hr tablet 00 daily. Medical Branch hydroCHLORO Yes [id number] 25mg Take 1 [facility] thiazide 25 8-29 tablet by ity of mg tablet 00:00: mouth [place] 00 daily. Medical Branch meloxicam Yes [id number] 15mg Take 1 U nivers 15 mg 8-29 tablet by ity of tablet 00:00: mouth [place] 00 daily. Medical Branch metoprolol 2020- No [id number] 25mg Take 1 U nivers succinate 8-29 01-30 tablet by ity of XL 25 mg 24 00:00: 00:00 mouth [place] hr tablet 00 :00 daily. [facility] Branch hydroCHLORO 2020- No [id number] 25mg Take 1 [facility] thiazide 25 8-29 01-30 tablet by it y of mg tablet 00:00: 00:00 mouth [place] 00 :00 daily. [facility] Branch meloxicam 2020- No [id number] 15mg Take 1 [facility] 15 mg 04-28 tablet by ity of tablet 00:00: 00:00 mouth [place] 00 :00 daily. [facility] Branch metoprolol 2020- No [id number] 25mg Take 1 U nivers succinate 04-28 tablet by ity of XL 25 mg 24 00:00: 00:00 mouth [place] hr tablet 00 :00 daily. [facility] Branch hydroCHLORO 2020- No [id number] 25mg Take 1 [facility] thiazide 25 04-28 tablet by it y of mg tablet 00:00: 00:00 mouth [place] 00 :00 daily. [facility] meloxicam 2020- No [id number] 15mg Take 1 Univers 15 mg 04-28 [...] 7-30 00:00: 00 METOPROLOL 2019- 2019- No [id number] TAKE 1 U nivers SUCCINATE 7-04-28 TABLET BY ity of XL 25 mg 24 00:00: 00:00 MOUTH [place] hr tablet 00 :00 EVERY DAY [facility] METOPROLOL 2018- 2019- No [id number] TAKE 1 U nivers SUCCINATE 7-10 - TABLET BY ity of XL 25 mg 24 00:00: 00:00 MOUTH [place] hr tablet 00 :00 EVERY DAY Medic ri Branch hydroCHLORO 2018- 2019- No [id number] 25mg Take 1 [facility] thiazide 25 01-27 tablet by it y of mg tablet 00:00: 00:00 mouth [place] 00 :00 daily. [facility] meloxicam 2019- No [id number] 7.5mg Take 1 Univers (MOBIC) 7.5 01-27 tablet by it y of mg tablet 00:00: 00:00 mouth [place] 00 :00 daily. Medical Branch hydroCHLORO 2018- 2019- No [id number] 25mg Take 1 [facility] thiazide 25 01-27- tablet by it y of mg tablet 00:00: 00:00 mouth [place] 00 :00 daily. Medical Branch meloxicam 2019- No [id number] 7.5mg Take 1 [facility] (MOBIC) 7.5 01-27 [...] [place] 25 times Medical daily. Branch DULOXETINE 2019-0 [...] COMPLEX 3-28 mouth. ity of ORAL 16:11: [address] VITAMIN B Yes Take by Unive rs COMPLEX 3-28 mouth. ity of ORAL 16:11: [address] VITAMIN B Yes Take by Unive rs COMPLEX 3-28 mouth. ity of ORAL 16:11: [address] VITAMIN B Yes Take by Unive rs COMPLEX 3-28 mouth. ity of ORAL 16:11: [address] VITAMIN B Yes Take by Unive rs COMPLEX 3-28 mouth. ity of ORAL 16:11: [address] VITAMIN B Yes Take by Unive rs COMPLEX 3-28 mouth. ity of ORAL 16:11: [address] amlodipine 2018-0 No 1mg 5 mg [...] 05-19 00:00: 00 Dose 2018-0 No Unknown 9- 00:00: 00 Dose 2018-0 No Unknown 9-19 00:00: 00 Dose 2018-0 No Unknown 9-19 [...] 8-15 tablet 00:00: 00 cyclobenzap 2018-0 Yes [id number] Bid prn [facility] rine 10 mg 8-02 ity of tablet 00:00: [place] 00 [facility] Branch cyclobenzap 2018-0 Yes [id number] Bid prn [facility] rine 10 mg 8-02 ity of tablet 00:00: [place] 00 Medical Branch cyclobenzap 2018-0 Yes [id number] Bid prn [facility] rine 10 mg 8-02 ity of tablet 00:00: [place] 00 Medical Branch cyclobenzap 2018-0 Yes [id number] Bid prn [facility] rine 10 mg 8-02 ity of tablet 00:00: [place] 00 Medical Branch cyclobenzap 2018-0 Yes [id number] Bid prn [facility] rine 10 mg 8-02 ity of tablet 00:00: [place] 00 Medical Branch cyclobenzap 2018-0 Yes [id number] Bid prn [facility] rine 10 mg 8-02 ity of tablet 00:00: [place] [facility] cyclobenzap 2018-0 Yes [id number] Bid prn Univers rine 10 mg 8-02 ity of tablet 00:00: [place] [facility] cyclobenzap 2018-0 Yes [id number] Bid prn Univers rine 10 mg 8-02 ity of tablet 00:00: [place] [facility] cyclobenzap 2018-0 Yes [id number] Bid prn Univers rine 10 mg 8-02 ity of tablet 00:00: [place] [facility] cyclobenzap 2018-0 Yes [id number] Bid prn Univers rine 10 mg 8-02 ity of tablet 00:00: [place] [facility] cyclobenzap 2018-0 2020- No [id number] Bid prn Univers rine 10 mg 8-02 02-24 ity of tablet 00:00: 00:00 [place] 00 :[facility] cyclobenzap 2018-0 2020- No [id number] Bid prn Univers rine 10 mg 8-02 02-24 ity of tablet 00:00: 00:00 [place] 00 :[facility] cyclobenzap 2018-0 2020- No [id number] Bid prn Univers rine 10 mg 8-02 02-24 ity of tablet 00:00: 00:00 [place] 00 :[facility] amlodipine 2018-0 No [...] 5-19 capsule 00:00: 00 DULoxetine 2015-0 Yes [id number] Emanuel sey HCl 30 MG 3-16 Seybold oral 00:00: - Capsule 00 Externa Delayed l Release Sprinkle hydrOXYzine 2015-0 Yes [id number] Ke lsey HCl 25 MG 3-16 Seybold oral Tablet 00:00: - 00 Externa l DULoxetine 2015-0 Yes [id number] Emanuel sey HCl 30 MG 3-16 Seybold oral 00:00: - Capsule 00 Externa Delayed l Release Sprinkle hydrOXYzine 2016-0 Yes [id number] Ke lsey HCl 25 MG 3-16 Seybold oral Tablet 00:00: - 00 Externa l DULoxetine 2016-0 Yes Jelena HCl 30 MG 3-16 Seybold oral 00:00: - Capsule 00 Externa Delayed l Release Sprinkle hydrOXYzine 2016-0 Yes Jelena HCl 25 MG 3-16 Seybold oral Tablet 00:00: - 00 Externa l DULoxetine 2016-0 Yes [id number] Emanuel sey HCl 30 MG 3-16 Seybold oral 00:00: - Capsule 00 Externa Delayed l Release Sprinkle hydrOXYzine 2016-0 Yes [id number] Ke lsey HCl 25 MG 3-16 Seybold oral Tablet 00:00: - 00 Externa l DULoxetine 2016-0 Yes [id number] Emanuel sey HCl 30 MG 3-16 Seybold oral 00:00: - Capsule 00 Externa Delayed l Release Sprinkle hydrOXYzine 2016-0 Yes [id number] Ke lsey HCl 25 MG 3-16 Seybold oral Tablet 00:00: - 00 Externa l DULoxetine 2016-0 Yes [id number] Emanuel sey HCl 30 MG 3-16 Seybold oral 00:00: - Capsule 00 Externa Delayed l Release Sprinkle hydrOXYzine 2016-0 Yes [id number] Ke lsey HCl 25 MG 3-16 Seybold oral Tablet 00:00: - 00 Externa l DULoxetine 2016-0 2023- No [id number] Ke lsey HCl 30 MG 3-16 04-24 Seybold oral 00:00: 00:00 - Capsule 00 :00 Externa Delayed l Release Sprinkle hydrOXYzine 2016-0 2023- No [id number] K elsey HCl 25 MG 3-16 04-24 Seybold oral Tablet 00:00: 00:00 - 00 :00 Externa l Immunizations Ordered Immunization Filled Immunization Date Status Commen ts Source Name Name Adwoa RICARDOID-2022-08-28 Completed Vaccine Bivalent 00:00:00 Booster for ages 6 + years (18+, 12-17, 6-11) Adwoa COVID-19 2022-08-28 Completed Vaccine Bivalent 00:00:00 Booster for ages 6 + years (18+, 12-17, 6-11) Moderna COVID-19 2022-08-28 Completed Vaccine Bivalent 00:00:00 Booster for ages 6 + years (18+, 12-17, 6-11) COVID-19 BIVALENT 2022-08-28 Completed Jelena Seybold BOOSTER [...] 00:00:00 - Externa l MODERNA Moderna COVID-19 2021-10-19 Completed Vaccine 00:00:00 Moderna COVID-19 2021-10-19 Completed Vaccine 00:00:00 Moderna COVID-19 2021-10-19 Completed Vaccine 00:00:00 Covid-19 Vaccine 2021-10-19 Completed Jelena newman Moderna (Spikevax), 00:00:00 - Ext ernal Mrna-lnp, Bradley Protein, Pf Covid-19 Vaccine 2021-10-19 Completed Jelena delgadold Moderna (Spikevax), 00:00:00 - Ext ernal Mrna-lnp, [...] 00:00:00 Moderna COVID-19 2021-09-07 Completed Vaccine 00:00:00 Covid-19 Vaccine 2021-09-07 Completed [...] - Ext ernal Mrna-lnp, Bradley Protein, Pf Pneumococcal Vaccine, 2019-04-29 Completed Emanuel sey Seybold [...] External HPV 4 (Human 2009-04-17 Completed Jelena Ashley ld Papillomavirus) 00:00:00 - Externa l Pneumococcal Vaccine, 2009-04-17 Completed Emanuel sey Seybold Conjugate 7 00:00:00 - External DTaP Unspecified 2009-04-17 Completed Jelena S eybold 00:00:00 - External Hepatitis A 2009-04-17 Completed Jelena Guevaraybol d 00:00:00 - External HPV 4 (Human 2009-04-17 Completed Jelena Eatono ld Papillomavirus) 00:00:00 - Externa l Pneumococcal Vaccine, 2009-04-17 Completed Emanuel woodard Seybold Conjugate 7 00:00:00 - External DTaP Unspecified 2009-04-17 Completed Jelena S eybold 00:00:00 - External Hepatitis A 2009-04-17 Completed Jelena Guevaraybol d 00:00:00 - External HPV 4 (Human 2009-04-17 Completed Jelena Eatono ld Papillomavirus) 00:00:00 - Externa l Pneumococcal Vaccine, 2009-04-17 Completed Emanuel woodard Seybold Conjugate 7 00:00:00 - External DTaP Unspecified 2009-04-17 Completed Jelena Umaña eybold 00:00:00 - External DTaP Unspecified 2009-04-17 Completed Jelena Umaña eybold 00:00:00 - External Hepatitis A 2009-04-17 Completed Jelena Eatonol d 00:00:00 - External Hepatitis A 2009-04-17 Completed Jelena Eatonol d 00:00:00 - External HPV 4 (Human 2009-04-17 Completed Jelenalit Eatono ld Papillomavirus) 00:00:00 - Externa l Pneumococcal Vaccine, 2009-04-17 Completed Emanuel woodard Seybold Conjugate 7 00:00:00 - External DTaP Unspecified 2009-04-17 Completed Jelena Umaña eybold 00:00:00 - External Hepatitis A 2009-04-17 Completed Jelena Eatonol d 00:00:00 - External HPV 4 (Human 2009-04-17 Completed Jelena Seybo ld Papillomavirus) 00:00:00 - Externa l Pneumococcal Vaccine, 2009-04-17 Completed Emanuel guevaray Seybold Conjugate 7 00:00:00 - External HPV 4 (Human 2009-04-17 Completed Jelena Guevaraybo ld Papillomavirus) 00:00:00 - Externa l DTaP Unspecified 2009-04-17 Completed Jelena S eybold 00:00:00 - External Hepatitis A 2009-04-17 Completed Jelena Guevaraybol d 00:00:00 - External HPV 4 (Human 2009-04-17 Completed Jelena Seybo ld Papillomavirus) 00:00:00 - Externa l Pneumococcal Vaccine, 2009-04-17 Completed Emanuel y Seybold Conjugate 7 00:00:00 - External Pneumococcal Vaccine, 2009-04-17 Completed Emanuel sey Seybold [...] Completed Jelena Eaton old Mcv4,unspecified 00:00:00 - Rn Anesthesiology 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 Hepatitis A 2008-02-18 Completed Jelena Seybol d 00:00:00 - External HPV 4 (Human 2008-02-18 Completed Jelena Seybo ld Papillomavirus) 00:00:00 - Externa l Meningococcal 2008-02-18 Completed Jelena Eaton old Mcv4,unspecified 00:00:00 - Rn Anesthesiology 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 Hepatitis A 2008-02-18 Completed Jelena Seybol d 00:00:00 - External HPV 4 (Human 2008-02-18 Completed Jelena Seybo ld Papillomavirus) 00:00:00 - Externa l Meningococcal 2008-02-18 Completed Jelena Seyb old Mcv4,unspecified 00:00:00 - Rn Anesthesiology 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 Hepatitis A 2008-02-18 Completed Jelena Seybol d 00:00:00 - External Hepatitis A 2008-02-18 Completed Jelena Seybol d 00:00:00 - External HPV 4 (Human 2008-02-18 Completed Jelena Seybo ld Papillomavirus) 00:00:00 - Externa l Meningococcal 2008-02-18 Completed Jelena Seyb old Mcv4,unspecified 00:00:00 - Rn Anesthesiology 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 Hepatitis A 2008-02-18 Completed Jelena Seybol d 00:00:00 - External HPV 4 (Human 2008-02-18 Completed Jelena Seybo ld Papillomavirus) 00:00:00 - Externa l Meningococcal 2008-02-18 Completed Jelena Seyb old Mcv4,unspecified 00:00:00 - Rn Anesthesiology 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 HPV 4 (Human 2008-02-18 Completed Jelena Seybo ld Papillomavirus) 00:00:00 - Externa l Meningococcal 2008-02-18 Completed Jelena Seyb old Mcv4,unspecified 00:00:00 - Rn Anesthesiology 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 Hepatitis A 2008-02-18 Completed Jelena Seybol d 00:00:00 - External HPV 4 (Human 2008-02-18 Completed Jelena Seybo ld Papillomavirus) 00:00:00 - Externa l Meningococcal 2008-02-18 Completed Jelena Seyb old Mcv4,unspecified 00:00:00 - Rn Anesthesiology 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 Td (adult), 2 2006-05-25 Completed Jelena S eybold tetanus toxoid, 00:00:00 - Externa l preservative free, adsorbed Td (adult), 2 2006-05-25 Completed Jelena S eybold tetanus toxoid, 00:00:00 - Externa l preservative free, adsorbed Td (adult), 2 2006-05-25 Completed Jelena S eybold tetanus toxoid, 00:00:00 - Externa l preservative free, adsorbed Td (adult), 2 2006-05-25 Completed Jelena S eybold tetanus toxoid, 00:00:00 - Externa l preservative free, adsorbed Td (adult), 2 2006-05-25 Completed Jelena S eybold tetanus toxoid, 00:00:00 - Externa l preservative free, adsorbed Td (adult), 2 2006-05-25 Completed Jelena S eybold tetanus toxoid, 00:00:00 - Externa l preservative free, adsorbed Td (adult), 2 2006-05-25 Completed Jelena S eybold tetanus toxoid, 00:00:00 - Externa l preservative free, adsorbed Varicella Vaccine 2002-04-21 Completed Jelena Ibrahim 00:00:00 - External Varicella Vaccine 2002-04-21 Completed Jelena Eatonold 00:00:00 - External Varicella Vaccine 2002-04-21 Completed Jelena Eatonold 00:00:00 - External Varicella Vaccine 2002-04-21 Completed Jelena Ibrahim 00:00:00 - External Varicella Vaccine 2002-04-21 Completed Jelena Ibrahim 00:00:00 - External Varicella Vaccine 2002-04-21 Completed Jelena Ibrahim 00:00:00 - External Varicella Vaccine 2002-04-21 Completed Jelena Ibrahim 00:00:00 - External HIB- Haemophilus 1997-05-31 Completed Jelena Umaña eybold [...] rtussis OPV- Oral Polio 1997-04-05 Completed Jelena Se ybold Vaccine 00:00:00 - External DTP- 1997-04-05 Completed Jelena Ibrahim Diphtheria,Tetanus,Pe 00:00:00 - E xternal rtussis DTP- 1997-04-05 Completed Jelena Ibrahim Diphtheria,Tetanus,Pe 00:00:00 - E xternal rtussis OPV- Oral Polio 1997-04-05 Completed Jelena Guevara ybold Vaccine 00:00:00 - External DTP- 1997-04-05 Completed Jelena Ibrahim Diphtheria,Tetanus,Pe 00:00:00 - E xternal rtussis OPV- Oral Polio 1997-04-05 Completed Jelena Guevara ybold Vaccine 00:00:00 - External DTP- 1997-04-05 Completed Jelena Ibrahim Diphtheria,Tetanus,Pe 00:00:00 - E xternal rtussis OPV- Oral Polio 1997-04-05 Completed Jelena Guevara ybold Vaccine 00:00:00 - External OPV- Oral Polio 1997-04-05 Completed Jelena Guevara ybold Vaccine 00:00:00 - External DTP- 1996-08-05 [...] Diphtheria,Tetanus,Pe 00:00:00 - E xternal rtussis DTP- 1996-08-05 Completed Jelena Ibrahim Diphtheria,Tetanus,Pe 00:00:00 - E xternal rtussis HIB- Haemophilus 1996-08-05 Completed Jelena S eybold Influenzae Type B 00:00:00 - Exter nal DTP- 1996-08-05 Completed Jelena Ibrahim Diphtheria,Tetanus,Pe 00:00:00 - E xternal rtussis HIB- Haemophilus 1996-08-05 Completed Jelena S eybold Influenzae Type B 00:00:00 - Exter nal HIB- Haemophilus 1996-08-05 Completed Jelena S eybold Influenzae Type B 00:00:00 - Exter nal DTP- 1996-08-05 Completed Jelena Ibrahim Diphtheria,Tetanus,Pe 00:00:00 - E xternal rtussis HIB- Haemophilus 1996-08-05 Completed Jelena Umaña eybold Influenzae Type B 00:00:00 - Exter nal MMR- Measles, Mumps, 1996-05-30 Completed Ashlie ey [...] Exter nal HIB- Haemophilus 1995-09-25 Completed Jelena S eybold Influenzae Type B 00:00:00 - Exter nal HIB- Haemophilus 1995-09-25 Completed Jelena S eybold Influenzae Type B 00:00:00 - Exter nal HIB- Haemophilus 1995-09-25 Completed Jelena S eybold Influenzae Type B 00:00:00 - Exter nal HIB- Haemophilus 1995-09-25 Completed Jelena Umaña eybold Influenzae Type B 00:00:00 - Exter nal HIB- Haemophilus 1995-09-25 Completed Jelena S eybold Influenzae Type B 00:00:00 - Exter nal HIB- Haemophilus 1995-09-25 Completed Jelena S eybold Influenzae Type B 00:00:00 - Exter nal OPV- Oral Polio 1994-08-05 Completed Jelena Se ybold Vaccine 00:00:00 - External OPV- Oral Polio 1994-08-05 Completed Jelena Se ybold Vaccine 00:00:00 - External OPV- Oral Polio 1994-08-05 Completed Jelena Se ybold Vaccine 00:00:00 - External OPV- Oral Polio 1994-08-05 Completed Jelena Se ybold Vaccine 00:00:00 - External OPV- Oral Polio 1994-08-05 Completed Jelena Se ybold Vaccine 00:00:00 - External OPV- Oral Polio 1994-08-05 Completed Jelena Se ybold Vaccine 00:00:00 - External OPV- Oral Polio 1994-08-05 Completed Jelena Se ybold Vaccine 00:00:00 - External MMR- Measles, [...] Completed Jelena nolasco Unspecified 00:00:00 - External DTP- 1993 Completed [...] rtussis OPV- Oral Polio 1993 Completed Jelena henley Vaccine 00:00:00 - External DTP- 1993 Completed Jelena Ibrahim Diphtheria,Tetanus,Pe 00:00:00 - E xternal rtussis OPV- Oral Polio 1993 Completed Jelena allenold Vaccine 00:00:00 - External DTP- 1993 Completed Jelena Ibrahim Diphtheria,Tetanus,Pe 00:00:00 - E xternal rtussis OPV- Oral Polio 1993 Completed Jelena henley Vaccine 00:00:00 - External DTP- 1993 Completed Jelena Ibrahim Diphtheria,Tetanus,Pe 00:00:00 - E xternal rtussis DTP- 1993 Completed Jelena Ibrahim Diphtheria,Tetanus,Pe 00:00:00 - E xternal rtussis OPV- Oral Polio 1993 Completed Jelena Guevara ybold Vaccine 00:00:00 - External DTP- 1993 Completed Jelena Ibrahim Diphtheria,Tetanus,Pe 00:00:00 - E xternal rtussis OPV- Oral Polio 1993 Completed Jelena Guevara ybold Vaccine 00:00:00 - External DTP- 1993 Completed Jelena Ibrahim Diphtheria,Tetanus,Pe 00:00:00 - E xternal rtussis OPV- Oral Polio 1993 Completed Jelena Guevara ybold Vaccine 00:00:00 - External OPV- Oral Polio 1993 Completed Jelena Guevara ybold Vaccine 00:00:00 - External DTP- 1993 Completed Jelena Ibrahim Diphtheria,Tetanus,Pe 00:00:00 - E xternal rtussis Hepatitis B, 1993 Completed Jelena Ashley ld Unspecified 00:00:00 - External OPV- Oral Polio 1993 Completed Jelena Guevara ybold Vaccine 00:00:00 - External DTP- 1993 Completed Jelena Ibrahim Diphtheria,Tetanus,Pe 00:00:00 - E xternal rtussis Hepatitis B, 1993 Completed Jelena Ashley ld Unspecified 00:00:00 - External OPV- Oral Polio 1993 Completed Jelena Guevara ybold Vaccine 00:00:00 - External DTP- 1993 Completed Jelena Ibrahim Diphtheria,Tetanus,Pe 00:00:00 - E xternal rtussis Hepatitis B, 1993 Completed Jelena Ashley ld Unspecified 00:00:00 - External OPV- Oral Polio 1993 Completed Jelena Guevara ybold Vaccine 00:00:00 - External DTP- 1993 Completed Jelena Ibrahim Diphtheria,Tetanus,Pe 00:00:00 - E xternal rtussis DTP- 1993 Completed Jelena bIrahim Diphtheria,Tetanus,Pe 00:00:00 - E xternal rtussis Hepatitis B, 1993 Completed Jelena nolasco Unspecified 00:00:00 - External OPV- Oral Polio 1993 Completed Jelena Guevara ybold Vaccine 00:00:00 - External Hepatitis B, 1993 Completed Jelena nolasco Unspecified 00:00:00 - External DTP- 1993 Completed Jelena Ibrahim Diphtheria,Tetanus,Pe 00:00:00 - E xternal rtussis Hepatitis B, 1993 Completed Jelena nolasco Unspecified 00:00:00 - External OPV- Oral Polio 1993 Completed Jelena Guevara ybold Vaccine 00:00:00 - External DTP- 1993 Completed Jelena Ibrahim Diphtheria,Tetanus,Pe 00:00:00 - E xternal rtussis Hepatitis B, 1993 Completed Jelena nolasco Unspecified 00:00:00 - External OPV- Oral Polio 1993 Completed Jelena Guevara ybold Vaccine 00:00:00 - External OPV- Oral Polio 1993 Completed Jelena Guevara ybold Vaccine 00:00:00 - External HIB- Haemophilus [...] - External Hepatitis B, 1993 Completed Jelena Setiffanyo ld Unspecified 00:00:00 - External Hepatitis B, 1993 Completed Jelena Setiffanyo ld Unspecified 00:00:00 - External Hepatitis B, 1993 Completed Jelenalit Eatono ld Unspecified 00:00:00 - External Hepatitis B, 1993 Completed Jelena Setiffanyo ld Unspecified 00:00:00 - External Hepatitis B, 1993 Completed Jelenalit Eatono ld Unspecified 00:00:00 - External Hepatitis B, 1993 Completed Jelena Eatono ld Unspecified 00:00:00 - External Vital Signs Vital Name Observation Time Observation Value Comments Source Systolic blood 2022-12-22 14:00:00 132 mm[Hg] Jelena Guevaraybold - pressure External Diastolic blood 2022-12-22 14:00:00 96 mm[Hg] Beth booth Seybold - pressure External Heart rate 2022-12-22 14:00:00 96 /min Jelena Leeroy shahbold - External Body temperature 2022-12-22 14:00:00 36.39 Mera Ashlie shah Seybold - External Respiratory rate 2022-12-22 14:00:00 18 /min Ashlie shah Seybold - External Body height 2022-12-22 14:00:00 160 cm Jelena shahbold - External Body weight 2022-12-22 14:00:00 127.007 kg Jelena Umaña eybold - External BMI 2022-12-22 14:00:00 49.60 kg/m2 Jelena Leeroy shahbold - External Oxygen saturation in 2022-12-22 14:00:00 97 /min Jelena Ibrahim - Arterial blood by External Pulse oximetry Body height 2022-12-08 15:56:00 160 cm Jeleanlit shahbold - External Body weight 2022-12-08 15:56:00 111.131 kg Jelena Umaña eybold - External BMI 2022-12-08 15:56:00 43.40 kg/m2 Jelena Leeroy shahbold - External Systolic blood 2022-10-28 15:06:00 129 mm[Hg] Jelena Guevaraybold - pressure External Diastolic blood 2022-10-28 15:06:00 86 mm[Hg] Beth y Seybold - pressure External Heart rate 2022-10-28 15:06:00 80 /min Jelena S eybold - External Body temperature 2022-10-28 15:06:00 36.56 Mera Ashlie ey Seybold - External Respiratory rate 2022-10-28 15:06:00 16 /min Ashlie ey Seybold - External Body height 2022-10-28 15:06:00 160 cm Jelena S eybold - External Body weight 2022-10-28 15:06:00 124.739 kg Jelena S eybold - External BMI 2022-10-28 15:06:00 48.71 kg/m2 Jelena S eybold - External Systolic blood 2022-10-10 14:33:00 152 mm[Hg] Jelena Seybold - pressure External Diastolic blood 2022-10-10 14:33:00 100 mm[Hg] Beth y Seybold - pressure External Heart rate 2022-10-10 14:33:00 80 /min Jelena S eybold - External Body temperature 2022-10-10 14:33:00 [...] Diastolic blood 2022-09-24 16:23:00 94 mm[Hg] Beth y Seybold - pressure External [...] Systolic blood 2022-09-09 14:45:00 142 mm[Hg] Jelena Guevaraybold - pressure External Diastolic blood 2022-09-09 14:45:00 86 mm[Hg] Beth booth Seybold - pressure External Heart rate 2022-09-09 14:45:00 84 /min Jelena Umaña eybold - External Body temperature 2022-09-09 14:45:00 36.78 Mera Ashlie shah Seybold - External Respiratory rate 2022-09-09 14:45:00 14 /min Ashlie shah Seybold - External Body height 2022-09-09 14:45:00 160 cm Jelena Umaña eybold - External Body weight 2022-09-09 14:45:00 128.822 kg Jelena shahbold - External BMI 2022-09-09 14:45:00 50.31 kg/m2 Jelena shahbold - External Oxygen saturation in 2022-09-09 14:45:00 99 /min Jelena Ibrahim - Arterial blood by External Pulse oximetry Systolic blood 2020-09-07 15:09:00 126 mm[Hg] [facility] Diastolic blood 2020-09-07 15:09:00 88 mm[Hg] [facility] Heart rate 2020-09-07 15:09:00 76 /min [facility] Body height 2020-09-07 15:09:00 160 cm [facility] Body weight 2020-09-07 15:09:00 114.306 kg [facility] BMI 2020-09-07 15:09:00 44.64 kg/m2 [facility] Systolic blood 2020-09-07 15:09:00 126 mm[Hg] Univer sity of pressure [facility] Diastolic blood 2020-09-07 15:09:00 88 mm[Hg] Unive rsity of pressure [facility] Heart rate 2020-09-07 15:09:00 76 /min Universi [...] 16:44:00 66 mm[Hg] Unive rsity of pressure [facility] [place] [facility] Heart rate 2020-08-02 16:44:00 76 /min [facility] [place] [facility] Body temperature 2020-08-02 16:44:00 36 Mera [facility] [place] [facility] Systolic blood 2020-05-17 16:06:00 125 mm[Hg] Univer [facility]ity of pressure [place] [facility] Diastolic blood 2020-05-17 16:06:00 76 [...] 2020-03-08 15:04:00 74 /min [facility] Body temperature 2020-03-08 15:04:00 36.61 Mera [facility] Respiratory rate 2020-03-08 15:04:00 20 /min [facility] Body height 2020-03-08 15:04:00 160 cm [facility] [place] [facility] Body weight 2020-03-08 15:04:00 112.583 kg [facility] [place] [facility] BMI 2020-03-08 15:04:00 43.97 kg/m2 [facility] Systolic blood 2019-10-25 14:56:00 128 mm[Hg] Univer [facility]ity of pressure [facility] Diastolic blood 2019-10-25 14:56:00 92 mm[Hg] [facility]ive rsity of pressure [facility] Heart rate 2019-10-25 14:56:00 72 /min [facility] Body temperature 2019-10-25 14:56:00 36.67 Mera [facility] Body height 2019-10-25 14:56:00 160 cm [facility] [place] [facility] Body weight 2019-10-25 14:56:00 110.904 kg [facility] BMI 2019-10-25 14:56:00 43.31 kg/m2 [facility] Oxygen saturation in 2019-10-25 14:56:00 99 /min [facility] of Arterial blood by [facility] Pulse oximetry Branch Systolic blood 2019-10-24 17:13:00 120 mm[Hg] Univer sity of pressure [facility] Diastolic blood 2019-10-24 17:13:00 81 mm[Hg] [facility]ive rsity of pressure [facility] Heart rate 2019-10-24 17:13:00 75 /min [facility] Respiratory rate 2019-10-24 17:13:00 19 /min [facility] Body height 2019-10-24 17:13:00 160 cm [facility] Body weight 2019-10-24 17:13:00 110.133 kg [facility] BMI 2019-10-24 17:13:00 43.01 kg/m2 [facility] Oxygen saturation in 2019-10-24 17:13:00 99 /min University Arterial blood by [facility] Pulse oximetry Branch Systolic blood 2019-09-29 16:38:00 93 mm[Hg] Univer sity of pressure [facility] Diastolic blood 2019-09-29 16:38:00 64 mm[Hg] Unive rsity of pressure [facility] Heart rate 2019-09-29 16:38:00 77 /min [facility] Body temperature 2019-09-29 16:38:00 36.5 Mera Univ ers[facility] Respiratory rate 2019-09-29 16:38:00 20 /min Univ ers[facility] Body height 2019-09-29 16:38:00 160 cm [facility] [place] [facility] Body weight 2019-09-29 16:38:00 109.77 kg [facility] BMI 2019-09-29 16:38:00 42.87 kg/m2 [facility] Systolic blood 2019-04-28 14:39:00 105 mm[Hg] Univer [facility]ity of pressure [facility] Diastolic blood 2019-04-28 14:39:00 62 mm[Hg] Unive rsity of pressure [facility] Heart rate 2019-04-28 14:39:00 87 /min [facility] Body temperature 2019-04-28 14:39:00 36.94 Mera Univ [facility] Respiratory rate 2019-04-28 14:39:00 18 /min [facility] Body height 2019-04-28 14:39:00 160 cm [facility] [place] [facility] Body weight 2019-04-28 14:39:00 123.832 kg [facility] BMI 2019-04-28 14:39:00 48.36 kg/m2 [facility] BP Systolic 2022-09-10 11:46:00 168 mm[Hg] BP [...] /min Respiratory Rate 2021-10-03 11:20:00 21.00 /min Body Temperature 2021-09-04 16:25:00 97.60 degrees Heart Rate 2021-09-04 16:25:00 98.00 /min Respiratory Rate 2021-09-04 16:25:00 17.00 /min BP Systolic 2021-09-04 16:25:00 144 mm[Hg] BP Diastolic 2021-09-04 16:25:00 95 mm[Hg] Weight Measured 2021-09-04 16:25:00 296.40 pounds Height Measured 2021-09-04 16:25:00 63.00 inches BP Systolic 2019-08-04 10:28:00 120 mm[Hg] BP [...] Source Performed REFERRAL- 2020-09-27 06:01:00 Doctor Lucina, [facility] REQUEST/RESPONSE [facility] MR KNEE LEFT WO CONTRAST 2020-08-20 18:12:04 Alexandre Delgado [facility] NOTICE OF PRIVACY 2020-08-02 06:01:00 [facility] PRACTICES [facility] AGREEMENTS AUTHORIZATIONS 2020-08-02 06:01:00 Doctor Verdugo, [facility] AND IRREVOCABLE [facility] ASSIGNMENTS (FORM 2001) VACCINATIONS - CONSENTS, 2020-05-17 05:01:00 Doctor Verdugo [facility] ELIGIBILITY, HISTORY [facility] XR KNEE 3 VW LEFT 2020-03-16 13:13:36 Alexandre Delgado [facility] SCANNED LAB RESULTS 2020-03-08 05:01:00 [facility] ASSIGNMENT OF BENEFITS 2020-02-10 13:57:41 [facility] - PRESCRIPTION / 2019-09-08 06:01:00 Doctor Unassigned, [facility] ORDER [facility] AGREEMENTS AUTHORIZATIONS 2019-04-28 05:01:00 Doctor Unassigned, [facility] AND IRREVOCABLE [facility] ASSIGNMENTS (FORM 2001) [id number] Ecg Routine Ecg 2018-06-14 00:00:00 W/least 12 Lds W/i r Plan of Care Planned Activity Planned Date Details Comments Source Goal Plan of Care Note [code = 12479-6] Goal Plan of Care Note [code = 49088-3] Goal Plan of Care Note [code = 61722-4] Goal Plan of Care Note [code = 80805-4] Goal Plan of Care Note [code = 73668-9] Goal Plan of Care Note [code = 63851-5] Goal Plan of Care Note [code = 04899-4] Goal Plan of Care Note [code = 05071-7] Goal Plan of Care Note [code = 41608-3] Goal Plan of Care Note [code = 19682-4] Goal Plan of Care Note [code = 67128-4] Goal Plan of Care Note [code = 38525-4] Goal Plan of Care Note [code = 68559-6] Goal Plan of Care Note [code = 42469-8] Goal Plan of Care Note [code = 64167-3] Goal Plan of Care Note [code = 10851-0] Goal Plan of Care Note [code = 16963-5] Goal Plan of Care Note [code = 57335-7] Goal Plan of Care Note [code = 18455-5] Goal Plan of Care Note [code = 46245-0] Goal Plan of Care Note [code = 54788-8] Goal Plan of Care Note [code = 93427-6] Goal Plan of Care Note [code = 24555-3] Goal Plan of Care Note [code = 23584-7] Goal Plan of Care Note [code = 52462-2] Goal Plan of Care Note [code = 26231-9] Goal Plan of Care Note [code = 40047-8] Goal Plan of Care Note [code = 15126-5] Goal Plan of Care Note [code = 53057-0] Goal Plan of Care Note [code = 19703-6] Goal Plan of Care Note [code = 42979-6] Goal Plan of Care Note [code = 43621-8] Goal Plan of Care Note [code = 39280-1] Goal Plan of Care Note [code = 32845-3] Goal Plan of Care Note [code = 11466-5] Goal Plan of Care Note [code = 82077-1] Goal Plan of Care Note [code = 87769-5] Goal Plan of Care Note [code = 99714-3] Goal Plan of Care Note [code = 59135-8] Goal Plan of Care Note [code = 63347-2] Goal Plan of Care Note [code = 03528-8] Goal Plan of Care Note [code = 97262-7] Goal Plan of Care Note [code = 25706-1] Goal Plan of Care Note [code = 91285-7] Goal Plan of Care Note [code = 64526-5] Goal Plan of Care Note [code = 11484-8] Goal Plan of Care Note [code = 33376-6] Goal Plan of Care Note [code = 93414-2] Goal Plan of Care Note [code = 73433-5] Goal Plan of Care Note [code = 44241-6] Goal Plan of Care Note [code = 20689-2] Goal Plan of Care Note [code = 90803-1] Goal Plan of Care Note [code = 48357-0] Goal Plan of Care Note [code = 69107-3] Goal Plan of Care Note [code = 27234-2] Goal Plan of Care Note [code = 38370-0] Goal Plan of Care Note [code = 25223-1] Goal Plan of Care Note [code = 64517-2] Goal Plan of Care Note [code = 34798-2] Goal Plan of Care Note [code = 68196-2] Goal Plan of Care Note [code = 68773-9] Goal Plan of Care Note [code = 30929-3] Goal Plan of Care Note [code = 06122-7] Goal Plan of Care Note [code = 58723-9] Goal Plan of Care Note [code = 12675-5] Goal Plan of Care Note [code = 42249-3] Goal Plan of Care Note [code = 60021-4] Goal Plan of Care Note [code = 21325-6] Goal Plan of Care Note [code = 28530-1] Goal Plan of Care Note [code = 03387-9] Goal Plan of Care Note [code = 12693-0] Goal Plan of Care Note [code = 54234-8] Goal Plan of Care Note [code = 03559-9] Goal Plan of Care Note [code = 32348-3] Goal Plan of Care Note [code = 47378-3] Goal Plan of Care Note [code = 35058-0] Goal Plan of Care Note [code = 50806-6] Goal Plan of Care Note [code = 09101-6] Goal Plan of Care Note [code = 24734-0] Goal Plan of Care Note [code = 89889-8] Goal Plan of Care Note [code = 81100-1] Goal Plan of Care Note [code = 61965-3] Goal Plan of Care Note [code = 28545-5] Goal Plan of Care Note [code = 07739-8] Goal Plan of Care Note [code = 16681-1] Goal Plan of Care Note [code = 22904-6] Goal Plan of Care Note [code = 36585-0] Goal Plan of Care Note [code = 43244-9] Goal Plan of Care Note [code = 74198-8] Goal Plan of Care Note [code = 53118-9] Goal Plan of Care Note [code = 91511-3] Goal Plan of Care Note [code = 86461-8] Goal Plan of Care Note [code = 93816-8] Goal Plan of Care Note [code = 67323-7] Goal Plan of Care Note [code = 66157-0] Goal Plan of Care Note [code = 47694-5] Goal Plan of Care Note [code = 29018-1] Goal Plan of Care Note [code = 98687-4] Goal Plan of Care Note [code = 45385-5] Goal Plan of Care Note [code = 74839-6] Goal Plan of Care Note [code = 92766-0] Goal Plan of Care Note [code = 56852-8] Goal Plan of Care Note [code = 28347-2] Goal Plan of Care Note [code = 28095-4] Goal Plan of Care Note [code = 61255-3] Goal Plan of Care Note [code = 76294-7] Goal Plan of Care Note [code = 09370-4] Goal Plan of Care Note [code = 41604-0] Goal Plan of Care Note [code = 36492-0] Encounters Start End Encounter Admission Attending Care Care Encounter Source Date/Time Date/Time Type Type Clinicians Facility Department ID 2023-04-28 2023-04-28 Outpatient JELENA VICK [id number] Jelena 09:00:00 09:00:00 DARLIN Seybo ld 2023-03-23 2023-03-23 Outpatient GAURAV PURVIS [id number] Jelena 10:30:00 10:30:00 Seybol d 2023-02-02 2023-02-02 Outpatient JELENA STOKES [id number] Jelena 09:30:00 09:30:00 SPENSER Seybol d 2023-01-01 2023-01-01 Outpatient JELENA GARY [id number] Jelena 10:30:00 10:30:00 ROBYN Seybol d 2022-12-31 2022-12-31 Outpatient PLABPA JELENA KNIGHT [id number] Jelena 09:00:00 09:00:00 Seybol d 2022-12-30 2022-12-30 Outpatient JELENA GARY [id number] Jelena 10:30:00 10:30:00 ROBYN Seybol d 2022-12-26 2022-12-26 Outpatient PLABPA JELENA KNIGHT [id number] Jelena 09:00:00 09:00:00 Seybol d 2022-12-25 2022-12-25 Outpatient GAURAV PURVIS [id number] Jelena 00:00:00 00:00:00 Seybol d 2022-12-24 2022-12-24 Outpatient PLABPA JELENA KNIGHT [id number] Jelena 11:30:00 11:30:00 Seybol d 2022-12-22 2022-12-22 Outpatient GAURAV PURVIS [id number] Jelena 09:00:00 09:00:00 Seybol d 2022-12-22 2022-12-22 Outpatient JELENA GARY [id number] Jelena 00:00:00 00:00:00 ROBYN Seybol d 2022-12-20 2022-12-20 Outpatient JELENA CRUZ [id number] Jelena 00:00:00 00:00:00 JALYN Seybol d 2022-12-19 2022-12-19 Outpatient PREJELENA ALVA [id number] Jelena 00:00:00 00:00:00 BYRON Seybol d 2022-12-18 2022-12-18 Outpatient JELENA GARY [id number] Jelena 00:00:00 00:00:00 ROBYN Seybol d 2022-12-18 2022-12-18 Outpatient JELENA GARY [id number] Jelena 00:00:00 00:00:00 ROBYN Seybol d 2022-12-15 2022-12-15 Outpatient BLANCAONJessica KNIGHT [id number] Jelena 00:00:00 00:00:00 MD ANKITA Seybol d 2022-12-15 2022-12-15 Outpatient JELENA MARTINEZ [id number] Jelena 00:00:00 00:00:00 MANOLO Seybol d 2022-12-15 2022-12-15 Outpatient JELENA GIVENS [id number] Jelena 00:00:00 00:00:00 GAUTAM Seybol d 2022-12-12 2022-12-12 Outpatient JELENA GIVENS [id number] Jelena 10:30:00 10:30:00 GAUTAM Seybol d 2022-12-12 2022-12-12 Outpatient JELENA KNIGHT [id number] Jelena 00:00:00 00:00:00 Seybol d 2022-12-12 2022-12-12 Outpatient JELENA MALHOTRA [id number] Jelena 00:00:00 00:00:00 BYRON Seybol d 2022-12-11 2022-12-11 Outpatient JELENA MALHOTRA [id number] Jelena 00:00:00 00:00:00 BYRON Seybol d 2022-12-08 2022-12-08 Outpatient MERRILL, JELENA KNIGHT [id number] Jelena 10:40:00 10:40:00 JAROD Seybol d 2022-12-08 2022-12-08 Outpatient JELENA KNIGHT [id number] Jelena 10:25:00 10:25:00 Seybol d 2022-12-08 2022-12-08 Outpatient KAWGAURAV DIAL [id number] Jelena 08:30:00 08:30:00 Seybol d 2022-12-08 2022-12-08 Outpatient FARIDALJELENA [id number] Jelena 00:00:00 00:00:00 ROBYN Seybol d 2022-12-04 2022-12-04 Outpatient PREJELENA ALVA [id number] Jelena 00:00:00 00:00:00 BYRON Seybol d 2022-12-04 2022-12-04 Outpatient MERRILL, JELENA KNIGHT [id number] Jelena 00:00:00 00:00:00 JAROD Seybol d 2022-12-04 2022-12-04 Outpatient JELENA KNIGHT [id number] Jelena 00:00:00 00:00:00 Seybol d 2022-12-04 2022-12-04 Outpatient FARIDALJELENA [id number] Jelena 00:00:00 00:00:00 ROBYN Seybol d 2022-12-01 2022-12-01 Outpatient HUNDL, JELENA KNIGHT [id number] Jelena 00:00:00 00:00:00 ROBYN Seybol d 2022-11-27 2022-11-[address], TECH JELENA KNIGHT [id number] Jelena 10:30:00 10:30:00 Seybol d 2022-11-27 2022-11-27 Outpatient MYKELSEYONL JELENA KNIGHT [id number] Jelena 00:00:00 00:00:00 MD ANKITA Seybol d 2022-11-27 2022-11-27 Outpatient MYKELSEYONL JELENA NKIGHT [id number] Jelena 00:00:00 00:00:00 MD ANKITA Seybol d 2022-11-21 2022-11-21 Outpatient JELENA GARY [id number] Jelena 00:00:00 00:00:00 ROBYN Seybol d 2022-11-20 2022-11-20 Outpatient SFA [facility] [id number] Jarod 10:08:21 10:08:21 0323 F Lee 2022-11-19 2022-11-19 Outpatient JELENA GARY [id number] Jelena 00:00:00 00:00:00 ROBYN Seybol d 2022-11-14 2022-11-14 Outpatient JELENA GARY [id number] Jelena 00:00:00 00:00:00 ROBYN Seybol d 2022-11-14 2022-11-14 Outpatient JELENA KNIGHT [id number] Jelena 00:00:00 00:00:00 Seybol d 2022-11-11 2022-11-11 Outpatient JELENA GARY [id number] Jelena 00:00:00 00:00:00 ROBYN Seybol d 2022-11-07 2022-11-07 Outpatient JELENA VICK [id number] Jelena 00:00:00 00:00:00 DARLIN Seybo ld 2022-11-07 2022-11-07 Outpatient JELENA VICK [id number] Jelena 00:00:00 00:00:00 DARLIN Seybo ld 2022-11-07 2022-11-07 Outpatient JELENA VICK [id number] Jelena 00:00:00 00:00:00 DARLIN Seybo ld 2022-11-07 2022-11-07 Outpatient JELENA VICK [id number] Jelena 00:00:00 00:00:00 DARLIN Seybo ld 2022-11-07 2022-11-07 Outpatient JELENA GARY [id number] Jelena 00:00:00 00:00:00 ROBYN Seybol d 2022-11-07 2022-11-07 Outpatient JELENA GARY [id number] Jelena 00:00:00 00:00:00 ROBYN Seybol d 2022-11-07 2022-11-07 Outpatient FARIDAL JELENA KNIGHT [id number] Jelena 00:00:00 00:00:00 ROBYN Seybol d 2022-11-07 2022-11-07 Outpatient FARIDAL JELENA KNIGHT [id number] Jelena 00:00:00 00:00:00 ROBYN Seybol d 2022-11-07 2022-11-07 Outpatient FARIDAL JELENA KNIGHT [id number] Jelena 00:00:00 00:00:00 ROBYN Seybol d 2022-11-07 2022-11-07 Outpatient FARIDAL JELENA KNIGHT [id number] Jelena 00:00:00 00:00:00 ROBYN Seybol d 2022-10-30 2022-10-30 Outpatient [facility] [id number] Jarod 08:26:44 08:26:44 0302 F Lee 2022-10-30 2022-10-30 Outpatient COOKIE JELENA KNIGHT [id number] Jelena 00:00:00 00:00:00 ROBYN Seybol d 2022-10-29 2022-10-29 Outpatient COOKIE JELENA KNIGHT [id number] Jelena 00:00:00 00:00:00 ROBYN Seybol d 2022-10-29 2022-10-29 Outpatient COOKIE JELENA KNIGHT [id number] Jelena 00:00:00 00:00:00 ROBYN Seybol d 2022-10-29 2022-10-29 Outpatient JELENA GARY [id number] Jelena 00:00:00 00:00:00 ROBYN Seybol d 2022-10-29 2022-10-29 Outpatient JELENA VICK [id number] Jelena 00:00:00 00:00:00 DARLIN Eatono ld 2022-10-28 2022-10-28 Outpatient LAB47 JELENA KNIGHT [id number] Jelena 09:45:00 09:45:00 Seybol d 2022-10-28 2022-10-28 Outpatient JELENA VICK [id number] Jelena 09:00:00 09:00:00 DARLIN Seybo ld 2022-10-23 2022-10-23 Outpatient HUNDL, JELENA KNIGHT [id number] Jelena 00:00:00 00:00:00 ROBYN Seybol d 2022-10-22 2022-10-22 Outpatient HUNDL, JELENA KNIGHT [id number] Jelena 08:00:00 08:00:00 ROBYN Seybol d 2022-10-13 2022-10-13 Outpatient [facility] [id number] Jarod 11:24:16 11:24:16 0213 F Lee 2022-10-10 2022-10-10 Outpatient LAB90 JELENA KNIGHT [id number] Jelena 09:25:00 09:25:00 Seybol d 2022-10-10 2022-10-10 Outpatient HUNDL, JELENA KNIGHT [id number] Jelena 08:30:00 08:30:00 ROBYN Seybol d 2022-10-10 2022-10-10 Outpatient HUNDL, JELENA KNIGHT [id number] Jelena 00:00:00 00:00:00 ROBYN Seybol d 2022-10-09 2022-10-09 Outpatient HUNDL, JELENA KNIGHT [id number] Jelena 08:30:00 08:30:00 ROBYN Seybol d 2022-10-09 2022-10-09 Outpatient HUNDL, JELENA KNIGHT [id number] Jelena 00:00:00 00:00:00 ROBYN Seybol d 2022-09-30 2022-09-30 Outpatient HUNDL, JELENA KNIGHT [id number] Jelena 00:00:00 00:00:00 ROBYN Seybol d 2022-09-26 2022-09-26 Outpatient HUNDL, JELENA KNIGHT [id number] Jelena 00:00:00 00:00:00 ROBYN Seybol d 2022-09-24 2022-09-24 Outpatient LAB90 JELENA KNIGHT [id number] Jelena 17:05:00 17:05:00 Seybol d 2022-09-24 2022-09-24 Outpatient HUNDL, JELENA KNIGHT [id number] Jelena 11:00:00 11:00:00 ROBYN Seybol d 2022-09-22 2022-09-22 Outpatient SFA SFA [id number] Jarod 09:21:24 09:21:24 0123 F Lee 2022-09-22 2022-09-22 Outpatient COOKIE JELENA KNIGHT [id number] Jelena 00:00:00 00:00:00 ROBYN Seybol d 2022-09-17 2022-09-17 Outpatient COOKIE JELENA KNIGHT [id number] Jelena 00:00:00 00:00:00 ROBYN Seybol d 2022-09-12 2022-09-12 Outpatient COOKIE JELENA KNIGHT [id number] Jelena 00:00:00 00:00:00 ROBYN Seybol d 2022-09-11 2022-09-11 Outpatient COOKIE JELENA KNIGHT [id number] Jelena 00:00:00 00:00:00 ROBYN Seybol d 2022-09-10 2022-09-10 Outpatient SFA SFA [id number] Jarod 11:36:44 11:36:44 0111 F Lee 2022-09-10 2022-09-10 Outpatient [id number]- [id number] 3c [id number] 00:00:00 00:00:00 Visit 87da-47c3 7da-47c3-b -xo64-0o8 u35-0v3v0u [id number] 2022-09-09 2022-09-09 Outpatient LAB90 JELENA KNIGHT [id number] Jelena 09:30:00 09:30:00 Seybol d 2022-09-09 2022-09-09 Outpatient FARIDAJessica JELENA NKIGHT [id number] Jelena 08:30:00 08:30:00 ROBYN Seybol d 2022-09-09 2022-09-09 Outpatient FARIDAJessica JELENA KNIGHT [id number] Jelena 00:00:00 00:00:00 ROBYN Seybol d 2022-09-04 2022-09-04 Outpatient SFA SFA [id number] Jarod 08:29:33 08:29:33 0105 F Lee 2022-09-04 2022-09-04 Outpatient [id number] 3f [id number]-[id number] 00:00:00 00:00:00 Visit 5wi0-2op9 bd9-4ec7-b -bbc8-d95 bc8-d957ab [id number] [id number] 2022-08-28 2022-08-28 Outpatient AYESHA [facility] [id number] Jarod 11:35:11 11:35:11 1229 F Lee 2022-08-28 2022-08-28 Outpatient [id number] 0d [id number] 00:00:00 00:00:00 Visit 010b-47c2 10b-47c2-b -z6b2-t08 3w3-u554z2 7c8288t9h 517b1b 2022-05-24 2022-05-24 [facility] [id number] 15:15:00 18:38:00 2381-551e 81-551e-843 36 -843c-ca8 c-jz3x5264i [id number] 5eb 2022-03-15 2022-03-15 Outpatient AMBREEN_FAR [facility] [address] [place] 10:56:00 10:56:00 HANA 0716 [facility] 2020-11-29 2020-11-29 Outpatient Gr[facility] [id number] Univers 15:30:00 15:30:00 ANNEMARIE arshad o f [facility] 2020-10-23 2020-10-23 Telephone Alexandre Delgado 1.2.840.114 [id number] [facility] 00:00:00 00:00:00 [facility] 350.1.13.10 it [id number] [address] 2020-10-23 2020-10-23 Telephone Alexandre Delgado 1.2.840.114 [id number] 00:00:00 00:00:00 [place] 60947.1.13.10 HEALTH 4.2.7.2.686 UNIT [id number] [facility] 2020-10-12 2020-10-12 Outpatient Gracia [facility] [id number] [facility] 09:00:00 09:00:00 SHEY ity of [facility] 2020-09-27 2020-09-27 Orders Doctor CONNER 1.2.840.114 [id number] Univers 00:00:00 00:00:00 Only Unassigned, LESLEY 350.1.13.10 ity of [place] [facility] 4.2.7.2.686 Marvel as [id number] [address] 2020-09-27 2020-09-27 Orders Doctor CONNER 1.2.840.114 [id number] 00:00:00 00:00:00 Only Unassigned, [place] 350.1.13.10 [place] [facility] 4.2.7.2.686 [id number] [facility] 2020-09-20 2020-09-20 [facility] 1.2.840.114 [id number] Univers 00:00:00 00:00:00 Shey Lopez [facility] 350.1.13.10 it y of Surgical 4.2.7.2.686 Marvel as Specialti [phone] De dical es [address] [facility] 2020-09-20 2020-09-20 Telephone [facility] 1.2.840.114 [id number] 00:00:00 00:00:00 Shey L [facility] 350.1.13.10 Surgical 4.2.7.2.686 Specialti [id number] es [address] [place] 2020-09-07 2020-09-07 Office [facility] 1.2.514.110 [id number] [facility] 09:03:53 09:52:26 Visit Shey Lopez [facility] 350.1.13.10 it y of Surgical 4.2.7.2.686 Marvel as Specialti [id number] Me dical es [address] [facility] 2020-09-07 2020-09-07 Office [facility] 1.2.208.718 [id number] 09:03:53 09:52:26 Visit Shey Lopez [facility]Plan 350.1.13.10 Surgical 4.2.7.2.686 Specialti [phone] es [address] [place] 2020-09-07 2020-09-07 Outpatient R [facility] [id number] Univers 09:00:00 09:00:00 SHEY [facility] 2020-08-30 2020-08-30 Outpatient R [facility] [id number] Univers 08:30:00 08:30:00 [facility] 2020-08-20 [facility] Sandy [facility] 1.2.840.114 [id number] Univers 10:11:58 23:59:00 Encounter Health 350.1.13.10 [place] [id number] [facility] [address] ([facility]) 2020-08-20 2020-08-20 Outpatient R SANDY [facility] [id number] Univers 10:11:58 23:59:00 ity [facility] 2020-08-16 2020-08-16 Jo Ann [facility] 1.2.840.114 [id number] Univers 00:00:00 00:00:00 [facility] 350.1.13.10 it y of [place] 4.2.7.2.686 Marvel as Professio [id number] [address] Office [address] [facility] 2020-08-02 2020-08-02 Office Care, Ang Primary [place] 1.2.840 .114 [id number] Univers 10:40:31 12:20:58 Visit Alexandre Delgado [facility] 350.1.13.10 it[place] [id number] [facility] [address] 2020-08-02 2020-08-02 Outpatient R SANDY [facility] [id number] Univers 10:30:00 10:30:00 ity [facility] 2020-08-02 2020-08-02 Orders Doctor OCNNER 1.2.840.114 [id number] Univers 00:00:00 00:00:00 Only Unassigned, LESLEY 350.1.13.10 ity of [place] [facility] 4.2.7.2.686 Marvel as [id number] [facility] [address] 2020-05-31 2020-05-31 Outpatient R [facility] [id number] Univers 08:50:00 08:50:00 ILIANA ity [facility] 2020-05-24 2020-05-24 Outpatient R SANDY [facility] [id number] Univers 00:00:00 00:00:00 ity [facility] 2020-05-22 2020-05-22 Outpatient R BRIANDA [facility] [id number] Univers 09:50:00 09:50:00 ILIANA ity [facility] 2020-05-17 2020-05-21 Office Care, Ang Primary [place] 1.2.840 .114 [id number] Univers 11:05:31 09:49:52 Visit Alexandre Delgado [facility] 350.1.13.10 it[place] [id number] [facility] [address] 2020-05-21 2020-05-21 Outpatient R SANDY [facility] [id number] Univers 00:00:00 00:00:00 ity [facility] 2020-05-17 2020-05-17 Outpatient R SANDY [facility] [id number] Univers 10:30:00 10:30:00 ity [facility] 2020-05-17 2020-05-17 Orders Doctor CONNER 1.2.840.114 [id number] Univers 00:00:00 00:00:00 Only Unassigned, LESLEY 350.1.13.10 ity of [place] [facility] 4.2.7.2.686 Marvel as [phone] [facility] [address] 2020-05-08 2020-05-08 Outpatient R DAJUAN [facility] [id number] Univers 08:30:00 08:30:00 ANNEMARIE klein f [facility] 2020-05-08 2020-05-08 Telemedici [facility] 1.2.840.114 [id number] Univers 07:05:41 07:35:41 ne Visit Annemarie AVILES 350.1.13.10 [place] [id number] De suman BYRD [address] [facility] 2020-05-01 2020-05-01 Outpatient R [facility] [id number] Univers 09:30:00 09:30:00 ANNEMARIE arshad o f [facility] 2020-04-24 2020-04-24 Outpatient R DAJUAN [facility] [id number] Univers 09:30:00 09:30:00 ANNEMARIE arshad o f [facility] 2020-03-08 2020-03-20 Office Care, Ang Primary ROSY 1.2.840 .114 [id number] Univers 10:02:59 09:15:53 [place] [facility] 350.1.13.10 it[place] [id number] [facility] [address] 2020-03-16 2020-03-16 [facility] 1.2.840.114 [id number] Univers 07:51:00 23:59:00 Encounter [place] 350.1.13.10 [place] [id number] [facility] [address] 2020-03-16 2020-03-16 Outpatient R BETHANY DELGADOCY [facility] [id number] Univers 00:00:00 00:00:00 ity of [facility] 2020-03-13 2020-03-13 Telephone Alexandre Delgado ROSY 1.2.840.114 [id number] Univers 00:00:00 00:00:00 [facility] 350.1.13.10 it [place] [id number] [facility] [address] RITIKA 2020-03-08 2020-03-08 Outpatient R BETHANY DELGADOCY [facility] [id number] Univers 10:00:00 10:00:00 ity of [facility] 2020-03-08 2020-03-08 Orders Doctor CONNER 1.2.840.114 [id number] Univers 00:00:00 00:00:00 Only Unassigned, LESLEY 350.1.13.10 ity of [place] [facility] 4.2.7.2.686 Marvel [phone] [facility] [address] 2020-02-29 2020-02-29 Telephone Alexandre Delgado ROSY 1.2.840.114 [id number] Univers 00:00:00 00:00:00 [facility] 350.1.13.10 [place] [phone] [address] 2020-02-14 2020-02-14 [facility] [id number] Univers 00:00:00 00:00:00 Dannie Gaspar 350.1.13.10 [place] [phone] [facility] nal 9 [facility] 2020-02-10 2020-02-10 Outpatient R [facility] [id number] Univers 09:00:00 09:00:00 ity of [facility] 2020-02-10 2020-02-10 Orders Doctor PRIETO 1.2.840.114 [id number] Univers 00:00:00 00:00:00 Only Unassigned, LESLEY 350.1.13.10 ity of [place] [facility] 4.2.7.2.686 Marvel as [phone] [address] 2020-01-24 2020-01-24 [facility] [id number] Univers 10:40:00 10:40:00 DANNIE ity o f [facility] 2020-01-24 2020-01-24 [facility] 1.2.840.114 [id number] Univers 07:57:10 08:17:10 ne Visit Dannie [place] 350.1.13.10 [place] [phone] [address] 2020-01-18 2020-01-18 Outpatient R [facility] [id number] Univers 13:00:00 13:00:00 ity of [facility] 2019-11-10 2019-11-10 Alexandre Santiago 1.2.840.114 [id number] Univers 00:00:00 00:00:00 [facility] 350.1.13.10 [place] [phone] [address] 2019-11-03 2019-11-03 Outpatient R ALEXANDRE DELGADO [facility] [id number] Univers 08:15:00 08:15:00 ity of [facility] 2019-10-25 2019-10-25 Office [facility] 1.2.840.114 [id number] Univers 08:48:06 09:27:18 Visit Annemarie AVILES 350.1.13.10 [place] [phone] De dical VICTORY [address] [facility] 2019-10-25 2019-10-25 Outpatient [facility] [id number] Univers 09:00:00 09:00:00 ANNEMARIE ity o f [facility] 2019-10-24 2019-10-24 Office [facility] 1.2.840.114 [id number] Univers 10:57:17 15:44:20 Visit Dannie Gaspar 350.1.13.10 ity [facility] [place] [phone] De dical nal 059 [facility] 2019-10-24 2019-10-24 Outpatient R FER [facility] [id number] Univers 11:00:00 11:00:00 DANNIE pavithra o f [facility] 2019-09-29 2019-09-29 Office Care, Aries GALLEGOS 1.2.840 .114 [id number] Univers 10:38:08 11:16:42 Visit Alexandre Delgado [facility] 350.1.13.10 [place] [phone] [address] 2019-09-29 2019-09-29 Outpatient R ALEXANDRE DELGADO [facility] [id number] Univers 10:00:00 11:16:42 ity of [facility] 2019-09-14 2019-09-14 Telephone Alexandre Delgado ROSY 1.2.840.114 [id number] Univers 00:00:00 00:00:00 [facility] 350.1.13.10 [place] [phone] [address] 2019-09-08 2019-09-08 Orders Doctor PRIETO 1.2.840.114 [id number] Univers 00:00:00 00:00:00 Only Unassigned, LESLEY 350.1.13.10 ity of [place] [facility] 4.2.7.2.686 Marvel as [phone] [facility] [address] 2019-05-05 2019-05-05 Telephone Alexandre Delgado 1.2.840.114 [id number] Univers 00:00:00 00:00:00 [facility] 350.1.13.10 it [place] of [place] [id number] [facility] [address] 2019-04-28 2019-04-28 Office Care, Aries GALLEGOS 1.2.840 .114 [id number] Univers 09:26:40 11:38:19 Visit Alexandre Delgado [facility] 350.1.13.10 it[place] [id number] [address] 2019-04-28 2019-04-28 Orders Doctor CONNER 1.2.840.114 [id number] Univers 00:00:00 00:00:00 Only Unassigned, [place] 350.1.13.10 ity of [facility] 4.2.7.2.686 Marvel as [id number] [address] Results Test Description Test Time Test Comments Results Result Comments Source TSH, THIRD GENERATION 2022-09-11 04:08:38 Test Item Value Reference Range Interpretation Comme nts TSH, THIRD GENERATION (test 2.060 UIU/ML 0.400-4.100 UNLESS OTHERWISE INDICATED, code = 2821) ALL TESTING PER FORMED ATCLINICAL PATH [facility]LOGY LABORATORIES, [facility]. [address] [place] [address] 0114 GOLD LEAF ROLLER: Tracey COBB [id number] [facility] [id number] COMPREHENSIVE METABOLIC [id number] 03:23:31 Test Item Value Reference Range Interpretation Comments GLUCOSE (test code = 80 MG/DL 70-99 2216) BUN (test code = 7 MG/DL -20 2207) CREATININE (test 0.55 MG/DL 0.60-1.30 L code = 2214) eGFR (2020 CKD-EPI) 127 >60 (test code = 59610) ML/MIN/1.73 CALC BUN/CREAT (test 13 RATIO 6-28 code = 223) SODIUM (test code = 138 MEQ/L 760-793 4508) POTASSIUM (test code 3.9 MEQ/L 3.5-5.4 = 2227) CHLORIDE (test code 104 MEQ/L 95-107 = 221) CARBON DIOXIDE (test 21 MEQ/L 19-31 code = 220) CALCIUM (test code = 9.5 MG/DL 8.5-10.5 2208) PROTEIN, TOTAL (test 7.9 G/DL 6.1-8.3 code = 222) ALBUMIN (test code = 4.2 G/DL 3.5-5.2 2200) CALC GLOBULIN (test 3.7 G/DL 1.9-3.7 code = 2239) CALC A/G RATIO (test 1.1 RATIO 1.0-2.6 code = 2233) BILIRUBIN, TOTAL 0.4 MG/DL See_Comment [Automated message] (test code = 2206) The syste NaHere which generated this result transmit inge reference range : <=1.2. The refe rence range was not u sed to interpret th is result as normal/abnormal . ALKALINE PHOSPHATASE 64 U/L 40-112 (test code = 2203) AST (test code = 20 U/L 9-40 2217) ALT (test code = 8 U/L 5-40 2218) CBC W/AUTO DIFF WITH [id number] 02:00:05 Test Item Value Reference Range Interpretation [...] RBCS 0.00 K/UL 0.00-0.11 (test code = 04841) CT/NG, NAAT, [id number] 20:52:50 Test Item Value Reference Range Interpretation Comments GONORRHEA, NAAT NEGATIVE NEGATIVE Note: Testi ng is (test code = 61937) performe d with Emili EDEL 6800/8800 systems using real-time polymerase cali n reaction (PCR) method. CHLAMYDIA, NAAT NEGATIVE NEGATIVE Note: Testi ng is (test code = 47505) performe d with Emili EDEL 6800/8800 systems using real-time polymerase cali n reaction (PCR) method. HEPATITIS PANEL, [id number] 05:02:20 Test Item Value Reference Range Interpretation Comments HEPATITIS A IgM (test NON-REACTIVE NON-REACTIVE code = 99965) HEPATITIS B CORE IgM NON-REACTIVE NON-REACTIVE (test code = 4644) HEPATITIS B SURF AG NON-REACTIVE NON-REACTIVE (test code = 2739) HEPATITIS C ANTIBODY NON-REACTIVE NON-REACTIVE (test code = 4675) INTERPRETATION (NOTE) Hepatitis A HEPATITIS A: (test code sero logy shows no = 2552) evidence of acu te hepatitis A. INTERPRETATION (NOTE) Hepatitis B HEPATITIS B: (test code sero logy shows no = 05944) evidence of acu te hepatitis B and no indication of exposure to hepatitis B vir us in the previous alejandra eight months. INTERPRETATION (NOTE) Hepatitis C HEPATITIS C: (test code sero logy shows no = 72814) evidence of exposure to hepatitisC viru s at this time. I t can take up to 12 months after exposure tothe hepatitis C vir us for antibodies to become detectab le in the blood in certain patient s. HIV 1/2 4TH GEN, RFLX [id number] 05:02:20 Test Item Value Reference Range Interpretation Comments HIV 1/2 4TH GEN, NON-REACTIVE NON-REACTIVE UNLESS OTH ERWISE RFLX CONF (test INDICATED, A LL TESTING code = 3514) PERFORMED [facility] NICMD PATHOLOG[facility] [address] [place] [address] DIRECTOR: [place] AGUIRRE M.D. CLIA NUMBER [id number] CAP ACCREDITATION N O. [id number] RPR REFLEX TO T. PALLIDUM - [id number] 04:28:08 Test Item Value Reference Range Interpretation Comments RPR (test code = 31312) NON-REACTIVE NON-REACTIVE RPR TITER (test code = 3500) NOT INDIC. TITER NOT INDIC. CT/NG, TMA, [id number] 00:00:00 Test Item Value Reference Range Interpretation Comments GONORRHEA, NAAT (test code = 28733) NEGATIVE CHLAMYDIA, NAAT (test code = 09503) NEGATIVE CT/NG, TMA, [id number] 00:00:00 Test Item Value Reference Range Interpretation Comments GONORRHEA, NAAT (test code = 39262) NEGATIVE CHLAMYDIA, NAAT (test code = 69788) NEGATIVE RPR REFLEX TO T. PALLIDUM - [id number] 00:00:00 Test Item Value Reference Range Interpretation Comments RPR (test code = 25845) NON-REACTIVE RPR TITER (test code = 3500) NOT INDIC. TITER RPR REFLEX TO T. PALLIDUM - [id number] 00:00:00 Test Item Value Reference Range Interpretation Comments RPR (test code = 71990) NON-REACTIVE RPR TITER (test code = 3500) NOT INDIC. TITER ACUTE HEPATITIS [id number] 00:00:00 Test Item Value Reference Range Interpretation Comments HEPATITIS A IgM (test code = NON-REACTIVE 41450) HEPATITIS B CORE IgM (test code NON-REACTIVE = 4644) HEPATITIS B SURF AG (test code = NON-REACTIVE 2739) HEPATITIS C ANTIBODY (test code NON-REACTIVE = 4675) INTERPRETATION HEPATITIS A: (NOTE) (test code = 2552) INTERPRETATION HEPATITIS B: (NOTE) (test code = 67110) INTERPRETATION HEPATITIS C: (NOTE) (test code = 28545) ACUTE HEPATITIS [id number] 00:00:00 Test Item Value Reference Range Interpretation Comments HEPATITIS A IgM (test code = NON-REACTIVE 42300) HEPATITIS B CORE IgM (test code NON-REACTIVE = 4644) HEPATITIS B SURF AG (test code = NON-REACTIVE 2739) HEPATITIS C ANTIBODY (test code NON-REACTIVE = 4675) INTERPRETATION HEPATITIS A: (NOTE) (test code = 2552) INTERPRETATION HEPATITIS B: (NOTE) (test code = 86654) INTERPRETATION HEPATITIS C: (NOTE) (test code = 19549) HIV 1/2 4TH GEN, RFLX [id number] 00:00:00 Test Item Value Reference Range Interpretation Comments HIV 1/2 4TH GEN, RFLX CONF (test NON-REACTIVE code = 3514) HIV 1/2 4TH GEN, RFLX [id number] 00:00:00 Test Item Value Reference Range Interpretation Comments HIV 1/2 4TH GEN, RFLX CONF (test NON-REACTIVE code = 3514) VITAMIN D, 25 [id number] 03:25:23 Test Item Value Reference Range Interpretation [...] ATED, ALL TESTING PERFORM ED ATCLINICAL PATH [facility], [facility]. [address] [place] [address] LABORATORY DIRE CTOR: Rebeca COBB. CLIA NUMBER [id number] CAP ACCREDITATION N O. [id number] HIV 1/2 4TH GEN, RFLX [id number] 03:00:39 Test Item Value Reference Range Interpretation Comments HIV 1/2 4TH GEN, RFLX CONF (test NON-REACTIVE NON-REACTIVE code = 3514) HIV AB/AG COMBO RFLX [id number] 00:00:00 Test Item Value Reference Range Interpretation Comments HIV 1/2 4TH GEN, RFLX CONF (test NON-REACTIVE code = 3514) HIV AB/AG COMBO RFLX [id number] 00:00:00 Test Item Value Reference Range Interpretation Comments HIV 1/2 4TH GEN, RFLX CONF (test NON-REACTIVE code = 3514) VITAMIN D, 25 [id number] 00:00:00 Test Item Value Reference Range Interpretation Comments VITAMIN D, 25 OH (test code = 4958) 27 NG/ML VITAMIN D, 25 [id number] 00:00:00 Test Item Value Reference Range Interpretation Comments VITAMIN D, 25 OH (test code = 4958) 27 NG/ML HIV AB/AG COMBO RFLX [id number] 00:00:00 Test Item Value Reference Range Interpretation Comments HIV 1/2 4TH GEN, RFLX CONF (test NON-REACTIVE code = 3514) HIV AB/AG COMBO RFLX [id number] 00:00:00 Test Item Value Reference Range Interpretation Comments HIV 1/2 4TH GEN, RFLX CONF (test NON-REACTIVE code = 3514) VITAMIN D, 25 [id number] 00:00:00 Test Item Value Reference Range Interpretation Comments VITAMIN D, 25 OH (test code = 4958) 27 NG/ML VITAMIN D, 25 [id number] 00:00:00 Test Item Value Reference Range Interpretation Comments VITAMIN D, 25 OH (test code = 4958) 27 NG/ML HIV AB/AG COMBO RFLX [id number] 00:00:00 Test Item Value Reference Range Interpretation Comments HIV 1/2 4TH GEN, RFLX CONF (test NON-REACTIVE code = 3514) HIV AB/AG COMBO RFLX [id number] 00:00:00 Test Item Value Reference Range Interpretation Comments HIV 1/2 4TH GEN, RFLX CONF (test NON-REACTIVE code = 3514) VITAMIN D, 25 [id number] 00:00:00 Test Item Value Reference Range Interpretation Comments VITAMIN D, 25 OH (test code = 4958) 27 NG/ML VITAMIN D, 25 [id number] 00:00:00 Test Item Value Reference Range Interpretation Comments VITAMIN D, 25 OH (test code = 4958) 27 NG/ML TSH, THIRD [id number] 00:19:50 Test Item Value Reference Range Interpretation Comments TSH, THIRD GENERATION (test code 1.090 UIU/ML 0.400-4.100 = 2821) [id number] 00:00:00 Test Item Value Reference Range Interpretation Comments TSH, THIRD GENERATION (test code 1.090 UIU/ML = 2821) [id number] 00:00:00 Test Item Value Reference Range Interpretation Comments TSH, THIRD GENERATION (test code 1.090 UIU/ML = 2821) [id number] 00:00:00 Test Item Value Reference Range Interpretation Comments TSH, THIRD GENERATION (test code 1.090 UIU/ML = 2821) [id number] 00:00:00 Test Item Value Reference Range Interpretation Comments TSH, THIRD GENERATION (test code 1.090 UIU/ML = 2821) [id number] 00:00:00 Test Item Value Reference Range Interpretation Comments TSH, THIRD GENERATION (test code 1.090 UIU/ML = 2821) [id number] 00:00:00 Test Item Value Reference Range Interpretation Comments TSH, THIRD GENERATION (test code 1.090 UIU/ML = 2821) [id number] 00:00:00 Test Item Value Reference Range Interpretation Comments TSH, THIRD GENERATION (test code 1.090 UIU/ML = 2821) [id number] 00:00:00 Test Item Value Reference Range Interpretation Comments TSH, THIRD GENERATION (test code 1.090 UIU/ML = 2821) [id number] 00:00:00 Test Item Value Reference Range Interpretation Comments TSH, THIRD GENERATION (test code 1.090 UIU/ML = 2821) LIPID [id number] 23:59:41 Test Item Value Reference Range Interpretation [...] MOREINFORMATION , SEE CLIENT ANNOUNCE MENT AT [email or web address] RISK RATIO LDL/HDL 1.79 RATIO <3.22 (test code = 2238) COMPREHENSIVE METABOLIC [id number] 23:59:41 Test Item Value Reference Range Interpretation Comments GLUCOSE (test code = 77 MG/DL 70-99 2216) BUN (test code = 8 MG/DL 6-20 2207) CREATININE (test 0.67 MG/DL 0.60-1.30 EFFECTIVE code = 2214) 08/12/2021, [facility] HAS IMPLEMENTED THE NKF-ASN RECOMME NDED KD-EPI EGF R REFIT CALCULATI ON THAT DOES NOT INCLUDE A COEFFICIENT FOR RACE. FOR MORE INFORMATION, SE E ANNOUNCEMENT [email or web address] eGFR (2020 CKD-EPI) 122 >60 (test code = 35656) ML/MIN/1.73 CALC BUN/CREAT (test 12 RATIO 6-28 code = 2235) SODIUM (test code = 141 MEQ/L 185-587 8957) POTASSIUM (test code 4.0 MEQ/L 3.5-5.4 = 2228) CHLORIDE (test code 102 MEQ/L 95-107 = 2215) CARBON DIOXIDE (test 22 MEQ/L 19-31 code = 220) CALCIUM (test code = 9.3 MG/DL 8.5-10.5 2208) PROTEIN, TOTAL (test 7.6 G/DL 6.1-8.3 code = 222) ALBUMIN (test code = 4.2 G/DL 3.5-5.2 [...] = 92 U/L 5-40 H 2218) HEMOGLOBIN [id number] 03:14:31 Test Item Value Reference Range Interpretation Comments HEMOGLOBIN A1c (test code = 86213) 6.0 % 4.2-5.6 H CBC W/AUTO DIFF WITH [id number] 03:06:02 Test Item Value Reference Range Interpretation [...] RBCS 0.00 K/UL 0.00-0.11 (test code = 88225) CBC W/AUTO [id number] 00:00:00 Test Item Value Reference Range Interpretation [...] NUCLEATED RBCS (test code = 0.00 K/UL 21646) CBC W/AUTO [id number] 00:00:00 Test Item Value Reference Range Interpretation [...] NUCLEATED RBCS (test code = 0.00 K/UL 70627) CBC W/AUTO [id number] 00:00:00 Test Item Value Reference Range Interpretation [...] NUCLEATED RBCS (test code = 0.00 K/UL 94361) HEMOGLOBIN [id number] 00:00:00 Test Item Value Reference Range Interpretation Comments HEMOGLOBIN A1c (test code = 85574) 6.0 % HEMOGLOBIN [id number] 00:00:00 Test Item Value Reference Range Interpretation Comments HEMOGLOBIN A1c (test code = 87055) 6.0 % HEMOGLOBIN [id number] 00:00:00 Test Item Value Reference Range Interpretation Comments HEMOGLOBIN A1c (test code = 78457) 6.0 % LIPID [id number] 00:00:00 Test Item Value Reference Range Interpretation Comments CHOLESTEROL (test code = 2210) 124 MG/DL TRIGLYCERIDES (test code = 2232) 69 MG/DL HDL CHOLESTEROL (test code = 2220) 39 MG/DL CALC LDL CHOL (test code = 2237) 70 MG/DL RISK RATIO LDL/HDL (test code = 1.79 RATIO 2238) LIPID [id number] 00:00:00 Test Item Value Reference Range Interpretation Comments CHOLESTEROL (test code = 2210) 124 MG/DL TRIGLYCERIDES (test code = 2232) 69 MG/DL HDL CHOLESTEROL (test code = 2220) 39 MG/DL CALC LDL CHOL (test code = 2237) 70 MG/DL RISK RATIO LDL/HDL (test code = 1.79 RATIO 2238) COMPREHENSIVE METABOLIC [id number] 00:00:00 Test Item Value Reference Range Interpretation Comments GLUCOSE (test code = 2217) 77 MG/DL BUN (test code = 2208) 8 MG/DL CREATININE (test code = 2214) 0.67 MG/DL eGFR (2020 CKD-EPI) (test 122 ML/MIN/1.73 code = 53731) CALC BUN/CREAT (test code = 12 RATIO [...] BILIRUBIN, TOTAL (test code = 0.3 MG/DL 220) ALKALINE PHOSPHATASE (test 56 U/L code = 2204) AST (test code = 2218) 63 U/L ALT (test code = 2219) 92 U/L COMPREHENSIVE METABOLIC [id number] 00:00:00 Test Item Value Reference Range Interpretation Comments GLUCOSE (test code = 2217) 77 MG/DL BUN (test code = 2208) 8 MG/DL CREATININE (test code = 2214) 0.67 MG/DL eGFR (2020 CKD-EPI) (test 122 ML/MIN/1.73 code = 83217) CALC BUN/CREAT (test code = 12 RATIO [...] code = 2219) 92 U/L CBC W/AUTO [id number] 00:00:00 Test Item Value Reference Range Interpretation [...] NUCLEATED RBCS (test code = 0.00 K/UL 77633) CBC W/AUTO [id number] 00:00:00 Test Item Value Reference Range Interpretation [...] NUCLEATED RBCS (test code = 0.00 K/UL 77911) CBC W/AUTO [id number] 00:00:00 Test Item Value Reference Range Interpretation [...] NUCLEATED RBCS (test code = 0.00 K/UL 47556) CBC W/AUTO [id number] 00:00:00 Test Item Value Reference Range Interpretation [...] NUCLEATED RBCS (test code = 0.00 K/UL 38043) HEMOGLOBIN [id number] 00:00:00 Test Item Value Reference Range Interpretation Comments HEMOGLOBIN A1c (test code = 73239) 6.0 % HEMOGLOBIN [id number] 00:00:00 Test Item Value Reference Range Interpretation Comments HEMOGLOBIN A1c (test code = 70745) 6.0 % HEMOGLOBIN [id number] 00:00:00 Test Item Value Reference Range Interpretation Comments HEMOGLOBIN A1c (test code = 35655) 6.0 % LIPID [id number] 00:00:00 Test Item Value Reference Range Interpretation Comments CHOLESTEROL (test code = 2210) 124 MG/DL TRIGLYCERIDES (test code = 2232) 69 MG/DL HDL CHOLESTEROL (test code = 2220) 39 MG/DL CALC LDL CHOL (test code = 2237) 70 MG/DL RISK RATIO LDL/HDL (test code = 1.79 RATIO 2238) LIPID [id number] 00:00:00 Test Item Value Reference Range Interpretation Comments CHOLESTEROL (test code = 2210) 124 MG/DL TRIGLYCERIDES (test code = 2232) 69 MG/DL HDL CHOLESTEROL (test code = 2220) 39 MG/DL CALC LDL CHOL (test code = 2237) 70 MG/DL RISK RATIO LDL/HDL (test code = 1.79 RATIO 2238) COMPREHENSIVE METABOLIC [id number] 00:00:00 Test Item Value Reference Range Interpretation Comments GLUCOSE (test code = 2217) 77 MG/DL BUN (test code = 2208) 8 MG/DL CREATININE (test code = 2214) 0.67 MG/DL eGFR (2020 CKD-EPI) (test 122 ML/MIN/1.73 code = 42522) CALC BUN/CREAT (test code = 12 RATIO [...] code = 2219) 92 U/L COMPREHENSIVE METABOLIC [id number] 00:00:00 Test Item Value Reference Range Interpretation Comments GLUCOSE (test code = 2217) 77 MG/DL BUN (test code = 2208) 8 MG/DL CREATININE (test code = 2214) 0.67 MG/DL eGFR (2020 CKD-EPI) (test 122 ML/MIN/1.73 code = 89923) CALC BUN/CREAT (test code = 12 RATIO [...] code = 2219) 92 U/L CBC W/AUTO [id number] 00:00:00 Test Item Value Reference Range Interpretation [...] NUCLEATED RBCS (test code = 0.00 K/UL 46993) CBC W/AUTO [id number] 00:00:00 Test Item Value Reference Range Interpretation [...] NUCLEATED RBCS (test code = 0.00 K/UL 35739) HEMOGLOBIN [id number] 00:00:00 Test Item Value Reference Range Interpretation Comments HEMOGLOBIN A1c (test code = 31638) 6.0 % HEMOGLOBIN [id number] 00:00:00 Test Item Value Reference Range Interpretation Comments HEMOGLOBIN A1c (test code = 12004) 6.0 % HEMOGLOBIN [id number] 00:00:00 Test Item Value Reference Range Interpretation Comments HEMOGLOBIN A1c (test code = 45954) 6.0 % LIPID [id number] 00:00:00 Test Item Value Reference Range Interpretation Comments CHOLESTEROL (test code = 2210) 124 MG/DL TRIGLYCERIDES (test code = 2232) 69 MG/DL HDL CHOLESTEROL (test code = 2220) 39 MG/DL CALC LDL CHOL (test code = 2237) 70 MG/DL RISK RATIO LDL/HDL (test code = 1.79 RATIO 2238) LIPID [id number] 00:00:00 Test Item Value Reference Range Interpretation Comments CHOLESTEROL (test code = 2210) 124 MG/DL TRIGLYCERIDES (test code = 2232) 69 MG/DL HDL CHOLESTEROL (test code = 2220) 39 MG/DL CALC LDL CHOL (test code = 2237) 70 MG/DL RISK RATIO LDL/HDL (test code = 1.79 RATIO 2238) COMPREHENSIVE METABOLIC [id number] 00:00:00 Test Item Value Reference Range Interpretation Comments GLUCOSE (test code = 2217) 77 MG/DL BUN (test code = 2208) 8 MG/DL CREATININE (test code = 2214) 0.67 MG/DL eGFR (2020 CKD-EPI) (test 122 ML/MIN/1.73 code = 18876) CALC BUN/CREAT (test code = 12 RATIO [...] CALC GLOBULIN (test code = 3.4 G/DL 224) CALC A/G RATIO (test code = 1.2 RATIO 2234) BILIRUBIN, TOTAL (test code = 0.3 MG/DL 2207) ALKALINE PHOSPHATASE (test 56 U/L code = 2204) AST (test code = 2218) 63 U/L ALT (test code = 2219) 92 U/L COMPREHENSIVE METABOLIC [id number] 00:00:00 Test Item Value Reference Range Interpretation Comments GLUCOSE (test code = 2217) 77 MG/DL BUN (test code = 2208) 8 MG/DL CREATININE (test code = 2214) 0.67 MG/DL eGFR (2020 CKD-EPI) (test 122 ML/MIN/1.73 code = 73138) CALC BUN/CREAT (test code = 12 RATIO 2235) SODIUM (test code = 2231) 141 MEQ/L POTASSIUM (test code = 2228) 4.0 MEQ/L CHLORIDE (test code = 2215) 102 MEQ/L CARBON DIOXIDE (test code = 22 MEQ/L 6) CALCIUM (test code = 2209) 9.3 MG/DL [...] 2219) 92 U/L MR KNEE LEFT WO [id number] 21:23:01 Stable MRI with lateral patellar subluxation [...] reviewed this study and agree with the abovereport.[facility] 2020-03-16 13:46:56 Large [...] thePA view. No fracture is appreciated.IMPRESSIONLarge effusion.No fracture.[facility] CenterHCG, [id number] 00:00:00 Test Item Value Reference Range Interpretation Comments HCG, QUANTITATIVE (test code = <5 MIU/ML 2506) HCG, [id number] 00:00:00 Test Item Value Reference Range Interpretation Comments HCG, QUANTITATIVE (test code = <5 MIU/ML 2506) HCG, [id number] 00:00:00 Test Item Value Reference Range Interpretation Comments HCG, QUANTITATIVE (test code = <5 MIU/ML 2506) HCG, [id number] 00:00:00 Test Item Value Reference Range Interpretation Comments HCG, QUANTITATIVE (test code = <5 MIU/ML 2506) HCG, [id number] 00:00:00 Test Item Value Reference Range Interpretation Comments HCG, QUANTITATIVE (test code = <5 MIU/ML 2506) HCG, [id number] 00:00:00 Test Item Value Reference Range Interpretation Comments HCG, QUANTITATIVE (test code = <5 MIU/ML 2506) HCG, [id number] 00:00:00 Test Item Value Reference Range Interpretation Comments HCG, QUANTITATIVE (test code = <5 MIU/ML 2506) HCG, [id number] 00:00:00 Test Item Value Reference Range Interpretation Comments HCG, QUANTITATIVE (test code = <5 MIU/ML 2506) HCG, [id number] 00:00:00 Test Item Value Reference Range Interpretation Comments HCG, QUANTITATIVE (test code = <5 MIU/ML 2506) HCG, [id number] 00:00:00 Test Item Value Reference Range Interpretation Comments HCG, QUANTITATIVE (test TEST NOT PERFORMED code = 2506) MIU/ML HCG, [id number] 00:00:00 Test Item Value Reference Range Interpretation Comments HCG, QUANTITATIVE (test TEST NOT PERFORMED code = 2506) MIU/ML HCG, [id number] 00:00:00 Test Item Value Reference Range Interpretation Comments HCG, QUANTITATIVE (test TEST NOT PERFORMED code = 2506) MIU/ML HCG, [id number] 00:00:00 Test Item Value Reference Range Interpretation Comments HCG, QUANTITATIVE (test TEST NOT PERFORMED code = 2506) MIU/ML HCG, [id number] 00:00:00 Test Item Value Reference Range Interpretation Comments HCG, QUANTITATIVE (test TEST NOT PERFORMED code = 2506) MIU/ML HCG, [id number] 00:00:00 Test Item Value Reference Range Interpretation Comments HCG, QUANTITATIVE (test TEST NOT PERFORMED code = 2506) MIU/ML HCG, [id number] 00:00:00 Test Item Value Reference Range Interpretation Comments HCG, QUANTITATIVE (test TEST NOT PERFORMED code = 2506) MIU/ML HCG, [id number] 00:00:00 Test Item Value Reference Range Interpretation Comments HCG, QUANTITATIVE (test TEST NOT PERFORMED code = 2506) MIU/ML HCG, [id number] 00:00:00 Test Item Value Reference Range Interpretation Comments HCG, QUANTITATIVE (test TEST NOT PERFORMED code = 2506) MIU/ML CHLAMYDIA, AMPLIFIED, [id number] 00:00:00 Test Item Value Reference Range Interpretation Comments CHLAMYDIA, TMA (test code = 07756) NEGATIVE CHLAMYDIA, AMPLIFIED, [id number] 00:00:00 Test Item Value Reference Range Interpretation Comments CHLAMYDIA, TMA (test code = 70294) NEGATIVE GC, AMPLIFIED, [id number] 00:00:00 Test Item Value Reference Range Interpretation Comments GONORRHEA, TMA (test code = 76150) NEGATIVE GC, AMPLIFIED, [id number] 00:00:00 Test Item Value Reference Range Interpretation Comments GONORRHEA, TMA (test code = 43913) NEGATIVE CHLAMYDIA, AMPLIFIED, [id number] 00:00:00 Test Item Value Reference Range Interpretation Comments CHLAMYDIA, TMA (test code = 59793) NEGATIVE CHLAMYDIA, AMPLIFIED, [id number] 00:00:00 Test Item Value Reference Range Interpretation Comments CHLAMYDIA, TMA (test code = 08173) NEGATIVE GC, AMPLIFIED, [id number] 00:00:00 Test Item Value Reference Range Interpretation Comments GONORRHEA, TMA (test code = 61083) NEGATIVE GC, AMPLIFIED, [id number] 00:00:00 Test Item Value Reference Range Interpretation Comments GONORRHEA, TMA (test code = 70556) NEGATIVE CHLAMYDIA, AMPLIFIED, [id number] 00:00:00 Test Item Value Reference Range Interpretation Comments CHLAMYDIA, TMA (test code = 36006) NEGATIVE CHLAMYDIA, AMPLIFIED, [id number] 00:00:00 Test Item Value Reference Range Interpretation Comments CHLAMYDIA, TMA (test code = 51267) NEGATIVE GC, AMPLIFIED, [id number] 00:00:00 Test Item Value Reference Range Interpretation Comments GONORRHEA, TMA (test code = 97318) NEGATIVE GC, AMPLIFIED, [id number] 00:00:00 Test Item Value Reference Range Interpretation Comments GONORRHEA, TMA (test code = 22704) NEGATIVE HIV AB/AG COMBO RFLX [id number] 00:00:00 Test Item Value Reference Range Interpretation Comments HIV 1/2 4TH GEN, RFLX CONF (test NON-REACTIVE code = 3514) HIV AB/AG COMBO RFLX [id number] 00:00:00 Test Item Value Reference Range Interpretation Comments HIV 1/2 4TH GEN, RFLX CONF (test NON-REACTIVE code = 3514) ACUTE HEPATITIS [id number] 00:00:00 Test Item Value Reference Range Interpretation Comments HEPATITIS A IgM (test code = NON-REACTIVE 33377) HEPATITIS B CORE IgM (test code NON-REACTIVE = 4644) HEPATITIS B SURF AG (test code = NON-REACTIVE 2739) HEPATITIS C ANTIBODY (test code NON-REACTIVE = 4675) INTERPRETATION HEPATITIS A: (NOTE) (test code = 2552) INTERPRETATION HEPATITIS B: (NOTE) (test code = 11619) INTERPRETATION HEPATITIS C: (NOTE) (test code = 29276) ACUTE HEPATITIS [id number] 00:00:00 Test Item Value Reference Range Interpretation Comments HEPATITIS A IgM (test code = NON-REACTIVE 27319) HEPATITIS B CORE IgM (test code NON-REACTIVE = 4644) HEPATITIS B SURF AG (test code = NON-REACTIVE 2739) HEPATITIS C ANTIBODY (test code NON-REACTIVE = 4675) INTERPRETATION HEPATITIS A: (NOTE) (test code = 2552) INTERPRETATION HEPATITIS B: (NOTE) (test code = 27030) INTERPRETATION HEPATITIS C: (NOTE) (test code = 51711) [id number] 00:00:00 Test Item Value Reference Range Interpretation Comments RPR RESULT (test code = NON-REACTIVE 3501) RPR TITER (test code = 3500) NOT INDIC. TITER [id number] 00:00:00 Test Item Value Reference Range Interpretation Comments RPR RESULT (test code = NON-REACTIVE 3501) RPR TITER (test code = 3500) NOT INDIC. TITER [id number] 00:00:00 Test Item Value Reference Range Interpretation Comments RPR RESULT (test code = NON-REACTIVE 3501) RPR TITER (test code = 3500) NOT INDIC. TITER HIV AB/AG COMBO RFLX [id number] 00:00:00 Test Item Value Reference Range Interpretation Comments HIV 1/2 4TH GEN, RFLX CONF (test NON-REACTIVE code = 3514) HIV AB/AG COMBO RFLX [id number] 00:00:00 Test Item Value Reference Range Interpretation Comments HIV 1/2 4TH GEN, RFLX CONF (test NON-REACTIVE code = 3514) HIV AB/AG COMBO RFLX [id number] 00:00:00 Test Item Value Reference Range Interpretation Comments HIV 1/2 4TH GEN, RFLX CONF (test NON-REACTIVE code = 3514) ACUTE HEPATITIS [id number] 00:00:00 Test Item Value Reference Range Interpretation Comments HEPATITIS A IgM (test code = NON-REACTIVE 92169) HEPATITIS B CORE IgM (test code NON-REACTIVE = 4644) HEPATITIS B SURF AG (test code = NON-REACTIVE 2739) HEPATITIS C ANTIBODY (test code NON-REACTIVE = 4675) INTERPRETATION HEPATITIS A: (NOTE) (test code = 2552) INTERPRETATION HEPATITIS B: (NOTE) (test code = 57714) INTERPRETATION HEPATITIS C: (NOTE) (test code = 35747) ACUTE HEPATITIS [id number] 00:00:00 Test Item Value Reference Range Interpretation Comments HEPATITIS A IgM (test code = NON-REACTIVE 62781) HEPATITIS B CORE IgM (test code NON-REACTIVE = 4644) HEPATITIS B SURF AG (test code = NON-REACTIVE 2739) HEPATITIS C ANTIBODY (test code NON-REACTIVE = 4675) INTERPRETATION HEPATITIS A: (NOTE) (test code = 2552) INTERPRETATION HEPATITIS B: (NOTE) (test code = 98966) INTERPRETATION HEPATITIS C: (NOTE) (test code = 68726) [id number] 00:00:00 Test Item Value Reference Range Interpretation Comments RPR RESULT (test code = NON-REACTIVE 3501) RPR TITER (test code = 3500) NOT INDIC. TITER [id number] 00:00:00 Test Item Value Reference Range Interpretation Comments RPR RESULT (test code = NON-REACTIVE 3501) RPR TITER (test code = 3500) NOT INDIC. TITER [id number] 00:00:00 Test Item Value Reference Range Interpretation Comments RPR RESULT (test code = NON-REACTIVE 3501) RPR TITER (test code = 3500) NOT INDIC. TITER HIV AB/AG COMBO RFLX [id number] 00:00:00 Test Item Value Reference Range Interpretation Comments HIV 1/2 4TH GEN, RFLX CONF (test NON-REACTIVE code = 3514) ACUTE HEPATITIS [id number] 00:00:00 Test Item Value Reference Range Interpretation Comments HEPATITIS A IgM (test code = NON-REACTIVE 42383) HEPATITIS B CORE IgM (test code NON-REACTIVE = 4644) HEPATITIS B SURF AG (test code = NON-REACTIVE 2739) HEPATITIS C ANTIBODY (test code NON-REACTIVE = 4675) INTERPRETATION HEPATITIS A: (NOTE) (test code = 2552) INTERPRETATION HEPATITIS B: (NOTE) (test code = 09548) INTERPRETATION HEPATITIS C: (NOTE) (test code = 92099) ACUTE HEPATITIS [id number] 00:00:00 Test Item Value Reference Range Interpretation Comments HEPATITIS A IgM (test code = NON-REACTIVE 12597) HEPATITIS B CORE IgM (test code NON-REACTIVE = 4644) HEPATITIS B SURF AG (test code = NON-REACTIVE 2739) HEPATITIS C ANTIBODY (test code NON-REACTIVE = 4675) INTERPRETATION HEPATITIS A: (NOTE) (test code = 2552) INTERPRETATION HEPATITIS B: (NOTE) (test code = 85782) INTERPRETATION HEPATITIS C: (NOTE) (test code = 14143) [id number] 00:00:00 Test Item Value Reference Range Interpretation Comments RPR RESULT (test code = NON-REACTIVE 3501) RPR TITER (test code = 3500) NOT INDIC. TITER [id number] 00:00:00 Test Item Value Reference Range Interpretation Comments RPR RESULT (test code = NON-REACTIVE 3501) RPR TITER (test code = 3500) NOT INDIC. TITER [id number] 00:00:00 Test Item Value Reference Range Interpretation Comments RPR RESULT (test code = NON-REACTIVE 3501) RPR TITER (test code = 3500) NOT INDIC. TITER HIV AB/AG COMBO RFLX [id number] 00:00:00 Test Item Value Reference Range Interpretation Comments HIV 1/2 4TH GEN, RFLX CONF (test NON-REACTIVE code = 3514) HIV AB/AG COMBO RFLX [id number] 00:00:00 Test Item Value Reference Range Interpretation Comments HIV 1/2 4TH GEN, RFLX CONF (test NON-REACTIVE code = 3514) ACUTE HEPATITIS [id number] 00:00:00 Test Item Value Reference Range Interpretation Comments HEPATITIS A IgM (test code = NON-REACTIVE 43491) HEPATITIS B CORE IgM (test code NON-REACTIVE = 4644) HEPATITIS B SURF AG (test code = NON-REACTIVE 2739) HEPATITIS C ANTIBODY (test code NON-REACTIVE = 4675) HCV INDEX (test code = 18067) 0.13 INTERPRETATION HEPATITIS A: (NOTE) (test code = 2552) INTERPRETATION HEPATITIS B: (NOTE) (test code = 01985) INTERPRETATION HEPATITIS C: (NOTE) (test code = 43929) ACUTE HEPATITIS [id number] 00:00:00 Test Item Value Reference Range Interpretation Comments HEPATITIS A IgM (test code = NON-REACTIVE 25400) HEPATITIS B CORE IgM (test code NON-REACTIVE = 4644) HEPATITIS B SURF AG (test code = NON-REACTIVE 2739) HEPATITIS C ANTIBODY (test code NON-REACTIVE = 4675) HCV INDEX (test code = 28038) 0.13 INTERPRETATION HEPATITIS A: (NOTE) (test code = 2552) INTERPRETATION HEPATITIS B: (NOTE) (test code = 10248) INTERPRETATION HEPATITIS C: (NOTE) (test code = 08070) GC AND CHLAMYDIA, AMPLIFIED, [id number] 00:00:00 Test Item Value Reference Range Interpretation Comments GONORRHEA, TMA (test code = 76337) NEGATIVE CHLAMYDIA, TMA (test code = 81781) NEGATIVE GC AND CHLAMYDIA, AMPLIFIED, [id number] 00:00:00 Test Item Value Reference Range Interpretation Comments GONORRHEA, TMA (test code = 45515) NEGATIVE CHLAMYDIA, TMA (test code = 37069) NEGATIVE [id number] 00:00:00 Test Item Value Reference Range Interpretation Comments RPR RESULT (test code = NON-REACTIVE 3501) RPR TITER (test code = 3500) NOT INDIC. TITER [id number] 00:00:00 Test Item Value Reference Range Interpretation Comments RPR RESULT (test code = NON-REACTIVE 3501) RPR TITER (test code = 3500) NOT INDIC. TITER [id number] 00:00:00 Test Item Value Reference Range Interpretation Comments RPR RESULT (test code = NON-REACTIVE 3501) RPR TITER (test code = 3500) NOT INDIC. TITER HIV AB/AG COMBO RFLX [id number] 00:00:00 Test Item Value Reference Range Interpretation Comments HIV 1/2 4TH GEN, RFLX CONF (test NON-REACTIVE code = 3514) HIV AB/AG COMBO RFLX [id number] 00:00:00 Test Item Value Reference Range Interpretation Comments HIV 1/2 4TH GEN, RFLX CONF (test NON-REACTIVE code = 3514) HIV AB/AG COMBO RFLX [id number] 00:00:00 Test Item Value Reference Range Interpretation Comments HIV 1/2 4TH GEN, RFLX CONF (test NON-REACTIVE code = 3514) ACUTE HEPATITIS [id number] 00:00:00 Test Item Value Reference Range Interpretation Comments HEPATITIS A IgM (test code = NON-REACTIVE 01246) HEPATITIS B CORE IgM (test code NON-REACTIVE = 4644) HEPATITIS B SURF AG (test code = NON-REACTIVE 2739) HEPATITIS C ANTIBODY (test code NON-REACTIVE = 4675) HCV INDEX (test code = 18119) 0.13 INTERPRETATION HEPATITIS A: (NOTE) (test code = 2552) INTERPRETATION HEPATITIS B: (NOTE) (test code = 28284) INTERPRETATION HEPATITIS C: (NOTE) (test code = 95713) ACUTE HEPATITIS [id number] 00:00:00 Test Item Value Reference Range Interpretation Comments HEPATITIS A IgM (test code = NON-REACTIVE 82314) HEPATITIS B CORE IgM (test code NON-REACTIVE = 4644) HEPATITIS B SURF AG (test code = NON-REACTIVE 2739) HEPATITIS C ANTIBODY (test code NON-REACTIVE = 4675) HCV INDEX (test code = 56637) 0.13 INTERPRETATION HEPATITIS A: (NOTE) (test code = 2552) INTERPRETATION HEPATITIS B: (NOTE) (test code = 19220) INTERPRETATION HEPATITIS C: (NOTE) (test code = 02139) HIV AB/AG COMBO RFLX [id number] 00:00:00 Test Item Value Reference Range Interpretation Comments HIV 1/2 4TH GEN, RFLX CONF (test NON-REACTIVE code = 3514) GC AND CHLAMYDIA, AMPLIFIED, [id number] 00:00:00 Test Item Value Reference Range Interpretation Comments GONORRHEA, TMA (test code = 32743) NEGATIVE CHLAMYDIA, TMA (test code = 35191) NEGATIVE GC AND CHLAMYDIA, AMPLIFIED, [id number] 00:00:00 Test Item Value Reference Range Interpretation Comments GONORRHEA, TMA (test code = 30077) NEGATIVE CHLAMYDIA, TMA (test code = 10037) NEGATIVE [id number] 00:00:00 Test Item Value Reference Range Interpretation Comments RPR RESULT (test code = NON-REACTIVE 3501) RPR TITER (test code = 3500) NOT INDIC. TITER [id number] 00:00:00 Test Item Value Reference Range Interpretation Comments RPR RESULT (test code = NON-REACTIVE 3501) RPR TITER (test code = 3500) NOT INDIC. TITER [id number] 00:00:00 Test Item Value Reference Range Interpretation Comments RPR RESULT (test code = NON-REACTIVE 3501) RPR TITER (test code = 3500) NOT INDIC. TITER ACUTE HEPATITIS [id number] 00:00:00 Test Item Value Reference Range Interpretation Comments HEPATITIS A IgM (test code = NON-REACTIVE 63131) HEPATITIS B CORE IgM (test code NON-REACTIVE = 4644) HEPATITIS B SURF AG (test code = NON-REACTIVE 2739) HEPATITIS C ANTIBODY (test code NON-REACTIVE = 4675) HCV INDEX (test code = 34005) 0.13 INTERPRETATION HEPATITIS A: (NOTE) (test code = 2552) INTERPRETATION HEPATITIS B: (NOTE) (test code = 90326) INTERPRETATION HEPATITIS C: (NOTE) (test code = 96797) ACUTE HEPATITIS [id number] 00:00:00 Test Item Value Reference Range Interpretation Comments HEPATITIS A IgM (test code = NON-REACTIVE 16751) HEPATITIS B CORE IgM (test code NON-REACTIVE = 4644) HEPATITIS B SURF AG (test code = NON-REACTIVE 2739) HEPATITIS C ANTIBODY (test code NON-REACTIVE = 4675) HCV INDEX (test code = 94923) 0.13 INTERPRETATION HEPATITIS A: (NOTE) (test code = 2552) INTERPRETATION HEPATITIS B: (NOTE) (test code = 44129) INTERPRETATION HEPATITIS C: (NOTE) (test code = 69976) GC AND CHLAMYDIA, AMPLIFIED, [id number] 00:00:00 Test Item Value Reference Range Interpretation Comments GONORRHEA, TMA (test code = 48147) NEGATIVE CHLAMYDIA, TMA (test code = 19139) NEGATIVE GC AND CHLAMYDIA, AMPLIFIED, [id number] 00:00:00 Test Item Value Reference Range Interpretation Comments GONORRHEA, TMA (test code = 51268) NEGATIVE CHLAMYDIA, TMA (test code = 11666) NEGATIVE [id number] 00:00:00 Test Item Value Reference Range Interpretation Comments RPR RESULT (test code = NON-REACTIVE 3501) RPR TITER (test code = 3500) NOT INDIC. TITER [id number] 00:00:00 Test Item Value Reference Range Interpretation Comments RPR RESULT (test code = NON-REACTIVE 3501) RPR TITER (test code = 3500) NOT INDIC. TITER [id number] 00:00:00 Test Item Value Reference Range Interpretation Comments RPR RESULT (test code = NON-REACTIVE 3501) RPR TITER (test code = 3500) NOT INDIC. TITER [id number] 00:00:00 Test Item Value Reference Range Interpretation Comments RPR RESULT (test code = NON-REACTIVE 3501) RPR TITER (test code = 3500) NOT INDIC. TITER [id number] 00:00:00 Test Item Value Reference Range Interpretation Comments RPR RESULT (test code = NON-REACTIVE 3501) RPR TITER (test code = 3500) NOT INDIC. TITER [id number] 00:00:00 Test Item Value Reference Range Interpretation Comments RPR RESULT (test code = NON-REACTIVE 3501) RPR TITER (test code = 3500) NOT INDIC. TITER HIV AB/AG COMBO RFLX [id number] 00:00:00 Test Item Value Reference Range Interpretation Comments HIV 1/2 4TH GEN, RFLX CONF (test NON-REACTIVE code = 3514) HIV AB/AG COMBO RFLX [id number] 00:00:00 Test Item Value Reference Range Interpretation Comments HIV 1/2 4TH GEN, RFLX CONF (test NON-REACTIVE code = 3514) [id number] 00:00:00 Test Item Value Reference Range Interpretation Comments RPR RESULT (test code = NON-REACTIVE 3501) RPR TITER (test code = 3500) NOT INDIC. TITER [id number] 00:00:00 Test Item Value Reference Range Interpretation Comments RPR RESULT (test code = NON-REACTIVE 3501) RPR TITER (test code = 3500) NOT INDIC. TITER [id number] 00:00:00 Test Item Value Reference Range Interpretation Comments RPR RESULT (test code = NON-REACTIVE 3501) RPR TITER (test code = 3500) NOT INDIC. TITER [id number] 00:00:00 Test Item Value Reference Range Interpretation Comments RPR RESULT (test code = NON-REACTIVE 3501) RPR TITER (test code = 3500) NOT INDIC. TITER HIV AB/AG COMBO RFLX [id number] 00:00:00 Test Item Value Reference Range Interpretation Comments HIV 1/2 4TH GEN, RFLX CONF (test NON-REACTIVE code = 3514) HIV AB/AG COMBO RFLX [id number] 00:00:00 Test Item Value Reference Range Interpretation Comments HIV 1/2 4TH GEN, RFLX CONF (test NON-REACTIVE code = 3514) [id number] 00:00:00 Test Item Value Reference Range Interpretation Comments RPR RESULT (test code = NON-REACTIVE 3501) RPR TITER (test code = 3500) NOT INDIC. TITER [id number] 00:00:00 Test Item Value Reference Range Interpretation Comments RPR RESULT (test code = NON-REACTIVE 3501) RPR TITER (test code = 3500) NOT INDIC. TITER HIV AB/AG COMBO RFLX [id number] 00:00:00 Test Item Value Reference Range Interpretation Comments HIV 1/2 4TH GEN, RFLX CONF (test NON-REACTIVE code = 3514) HIV AB/AG COMBO RFLX [id number] 00:00:00 Test Item Value Reference Range Interpretation Comments HIV 1/2 4TH GEN, RFLX CONF (test NON-REACTIVE code = 3514) GC AND CHLAMYDIA, AMPLIFIED, [id number] 00:00:00 Test Item Value Reference Range Interpretation Comments GONORRHEA, TMA (test code = 91298) NEGATIVE CHLAMYDIA, TMA (test code = 60232) NEGATIVE GC AND CHLAMYDIA, AMPLIFIED, [id number] 00:00:00 Test Item Value Reference Range Interpretation Comments GONORRHEA, TMA (test code = 16037) NEGATIVE CHLAMYDIA, TMA (test code = 96020) NEGATIVE GC AND CHLAMYDIA, AMPLIFIED, [id number] 00:00:00 Test Item Value Reference Range Interpretation Comments GONORRHEA, TMA (test code = 57175) NEGATIVE CHLAMYDIA, TMA (test code = 05574) NEGATIVE GC AND CHLAMYDIA, AMPLIFIED, [id number] 00:00:00 Test Item Value Reference Range Interpretation Comments GONORRHEA, TMA (test code = 60566) NEGATIVE CHLAMYDIA, TMA (test code = 41194) NEGATIVE GC AND CHLAMYDIA, AMPLIFIED, [id number] 00:00:00 Test Item Value Reference Range Interpretation Comments GONORRHEA, TMA (test code = 80173) NEGATIVE CHLAMYDIA, TMA (test code = 70048) NEGATIVE GC AND CHLAMYDIA, AMPLIFIED, [id number] 00:00:00 Test Item Value Reference Range Interpretation Comments GONORRHEA, TMA (test code = 12203) NEGATIVE CHLAMYDIA, TMA (test code = 36086) NEGATIVE COMPREHENSIVE METABOLIC [id number] 00:00:00 Test Item Value Reference Range Interpretation Comments GLUCOSE (test code = 2217) 127 MG/DL BUN (test code = 2208) 5 MG/DL CREATININE (test code = 2214) 0.58 MG/DL eGFR AMER. (test code 148 ML/MIN/1.73 = 27370) eGFR NON- AMER. (test 128 ML/MIN/1.73 code = 06965) CALC BUN/CREAT (test code = 9 RATIO 2235) SODIUM (test code = 2231) 139 MEQ/L POTASSIUM (test code = 2228) 3.7 MEQ/L CHLORIDE (test code = 2215) 99 MEQ/L CARBON DIOXIDE (test code = 24 MEQ/L 6) CALCIUM (test code = 2209) 9.9 MG/DL [...] code = 2219) 18 U/L COMPREHENSIVE METABOLIC [id number] 00:00:00 Test Item Value Reference Range Interpretation Comments GLUCOSE (test code = 2217) 127 MG/DL BUN (test code = 2208) 5 MG/DL CREATININE (test code = 2214) 0.58 MG/DL eGFR AMER. (test code 148 ML/MIN/1.73 = 87864) eGFR NON- AMER. (test 128 ML/MIN/1.73 code = 96880) CALC BUN/CREAT (test code = 9 RATIO [...] (test code = 2219) 18 U/L LIPID [id number] 00:00:00 Test Item Value Reference Range Interpretation Comments CHOLESTEROL (test code = 2210) 186 MG/DL TRIGLYCERIDES (test code = 2232) 106 MG/DL HDL CHOLESTEROL (test code = 2220) 54 MG/DL CALC LDL CHOL (test code = 2237) 111 MG/DL RISK RATIO LDL/HDL (test code = 2.05 RATIO 2238) LIPID [id number] 00:00:00 Test Item Value Reference Range Interpretation Comments CHOLESTEROL (test code = 2210) 186 MG/DL TRIGLYCERIDES (test code = 2232) 106 MG/DL HDL CHOLESTEROL (test code = 2220) 54 MG/DL CALC LDL CHOL (test code = 2237) 111 MG/DL RISK RATIO LDL/HDL (test code = 2.05 RATIO 2238) COMPREHENSIVE METABOLIC [id number] 00:00:00 Test Item Value Reference Range Interpretation Comments GLUCOSE (test code = 2217) 127 MG/DL BUN (test code = 2208) 5 MG/DL CREATININE (test code = 2214) 0.58 MG/DL eGFR AMER. (test code 148 ML/MIN/1.73 = 97354) eGFR NON- AMER. (test 128 ML/MIN/1.73 code = 34613) CALC BUN/CREAT (test code = 9 RATIO [...] code = 2219) 18 U/L COMPREHENSIVE METABOLIC [id number] 00:00:00 Test Item Value Reference Range Interpretation Comments GLUCOSE (test code = 2217) 127 MG/DL BUN (test code = 2208) 5 MG/DL CREATININE (test code = 2214) 0.58 MG/DL eGFR AMER. (test code 148 ML/MIN/1.73 = 81424) eGFR NON- AMER. (test 128 ML/MIN/1.73 code = 41285) CALC BUN/CREAT (test code = 9 RATIO [...] code = 2219) 18 U/L COMPREHENSIVE METABOLIC [id number] 00:00:00 Test Item Value Reference Range Interpretation Comments GLUCOSE (test code = 2217) 127 MG/DL BUN (test code = 2208) 5 MG/DL CREATININE (test code = 2214) 0.58 MG/DL eGFR AMER. (test code 148 ML/MIN/1.73 = 42323) eGFR NON- AMER. (test 128 ML/MIN/1.73 code = 00711) CALC BUN/CREAT (test code = 9 RATIO [...] (test code = 2219) 18 U/L LIPID [id number] 00:00:00 Test Item Value Reference Range Interpretation Comments CHOLESTEROL (test code = 2210) 186 MG/DL TRIGLYCERIDES (test code = 2232) 106 MG/DL HDL CHOLESTEROL (test code = 2220) 54 MG/DL CALC LDL CHOL (test code = 2237) 111 MG/DL RISK RATIO LDL/HDL (test code = 2.05 RATIO 2238) LIPID [id number] 00:00:00 Test Item Value Reference Range Interpretation Comments CHOLESTEROL (test code = 2210) 186 MG/DL TRIGLYCERIDES (test code = 2232) 106 MG/DL HDL CHOLESTEROL (test code = 2220) 54 MG/DL CALC LDL CHOL (test code = 2237) 111 MG/DL RISK RATIO LDL/HDL (test code = 2.05 RATIO 2238) COMPREHENSIVE METABOLIC [id number] 00:00:00 Test Item Value Reference Range Interpretation Comments GLUCOSE (test code = 2217) 127 MG/DL BUN (test code = 2208) 5 MG/DL CREATININE (test code = 2214) 0.58 MG/DL eGFR AMER. (test code 148 ML/MIN/1.73 = 18533) eGFR NON- AMER. (test 128 ML/MIN/1.73 code = 39137) CALC BUN/CREAT (test code = 9 RATIO [...] (test code = 2219) 18 U/L LIPID [id number] 00:00:00 Test Item Value Reference Range Interpretation Comments CHOLESTEROL (test code = 2210) 186 MG/DL TRIGLYCERIDES (test code = 2232) 106 MG/DL HDL CHOLESTEROL (test code = 2220) 54 MG/DL CALC LDL CHOL (test code = 2237) 111 MG/DL RISK RATIO LDL/HDL (test code = 2.05 RATIO 2238) LIPID [id number] 00:00:00 Test Item Value Reference Range Interpretation Comments CHOLESTEROL (test code = 2210) 186 MG/DL TRIGLYCERIDES (test code = 2232) 106 MG/DL HDL CHOLESTEROL (test code = 2220) 54 MG/DL CALC LDL CHOL (test code = 2237) 111 MG/DL RISK RATIO LDL/HDL (test code = 2.05 RATIO 2238) GC AND CHLAMYDIA, AMPLIFIED, [id number] 00:00:00 Test Item Value Reference Range Interpretation Comments GONORRHEA, TMA (test code = 24033) NEGATIVE CHLAMYDIA, TMA (test code = 18601) NEGATIVE GC AND CHLAMYDIA, AMPLIFIED, [id number] 00:00:00 Test Item Value Reference Range Interpretation Comments GONORRHEA, TMA (test code = 58757) NEGATIVE CHLAMYDIA, TMA (test code = 88224) NEGATIVE GC AND CHLAMYDIA, AMPLIFIED, [id number] 00:00:00 Test Item Value Reference Range Interpretation Comments GONORRHEA, TMA (test code = 69252) NEGATIVE CHLAMYDIA, TMA (test code = 84371) NEGATIVE GC AND CHLAMYDIA, AMPLIFIED, [id number] 00:00:00 Test Item Value Reference Range Interpretation Comments GONORRHEA, TMA (test code = 12543) NEGATIVE CHLAMYDIA, TMA (test code = 55185) NEGATIVE GC AND CHLAMYDIA, AMPLIFIED, [id number] 00:00:00 Test Item Value Reference Range Interpretation Comments GONORRHEA, TMA (test code = 69173) NEGATIVE CHLAMYDIA, TMA (test code = 66476) NEGATIVE GC AND CHLAMYDIA, AMPLIFIED, [id number] 00:00:00 Test Item Value Reference Range Interpretation Comments GONORRHEA, TMA (test code = 68804) NEGATIVE CHLAMYDIA, TMA (test code = 46956) NEGATIVE VAGINAL PATHOGENS DNA [id number] 00:00:00 Test Item Value Reference Range Interpretation Comments YOKO SPECIES (test code = 05099) POSITIVE G. VAGINALIS (test code = 38986) NEGATIVE T. VAGINALIS (test code = 48623) NEGATIVE VAGINAL PATHOGENS DNA [id number] 00:00:00 Test Item Value Reference Range Interpretation Comments YOKO SPECIES (test code = 49345) POSITIVE G. VAGINALIS (test code = 35869) NEGATIVE T. VAGINALIS (test code = 76448) NEGATIVE VAGINAL PATHOGENS DNA [id number] 00:00:00 Test Item Value Reference Range Interpretation Comments YOKO SPECIES (test code = 64955) POSITIVE G. VAGINALIS (test code = 45479) NEGATIVE T. VAGINALIS (test code = 04045) NEGATIVE VAGINAL PATHOGENS DNA [id number] 00:00:00 Test Item Value Reference Range Interpretation Comments YOKO SPECIES (test code = 34113) POSITIVE G. VAGINALIS (test code = 14787) NEGATIVE T. VAGINALIS (test code = 29133) NEGATIVE VAGINAL PATHOGENS DNA [id number] 00:00:00 Test Item Value Reference Range Interpretation Comments YOKO SPECIES (test code = 66943) POSITIVE G. VAGINALIS (test code = 79932) NEGATIVE T. VAGINALIS (test code = 04389) NEGATIVE VAGINAL PATHOGENS DNA [id number] 00:00:00 Test Item Value Reference Range Interpretation Comments YOKO SPECIES (test code = 65440) POSITIVE G. VAGINALIS (test code = 19840) NEGATIVE T. VAGINALIS (test code = 90359) NEGATIVE GC AND CHLAMYDIA, AMPLIFIED, [id number] 00:00:00 Test Item Value Reference Range Interpretation Comments GONORRHEA, TMA (test code = 33473) NEGATIVE CHLAMYDIA, TMA (test code = 91792) NEGATIVE GC AND CHLAMYDIA, AMPLIFIED, [id number] 00:00:00 Test Item Value Reference Range Interpretation Comments GONORRHEA, TMA (test code = 98735) NEGATIVE CHLAMYDIA, TMA (test code = 17370) NEGATIVE GC AND CHLAMYDIA, AMPLIFIED, [id number] 00:00:00 Test Item Value Reference Range Interpretation Comments GONORRHEA, TMA (test code = 37470) NEGATIVE CHLAMYDIA, TMA (test code = 85216) NEGATIVE GC AND CHLAMYDIA, AMPLIFIED, [id number] 00:00:00 Test Item Value Reference Range Interpretation Comments GONORRHEA, TMA (test code = 89087) NEGATIVE CHLAMYDIA, TMA (test code = 68403) NEGATIVE GC AND CHLAMYDIA, AMPLIFIED, [id number] 00:00:00 Test Item Value Reference Range Interpretation Comments GONORRHEA, TMA (test code = 81050) NEGATIVE CHLAMYDIA, TMA (test code = 24794) NEGATIVE GC AND CHLAMYDIA, AMPLIFIED, [id number] 00:00:00 Test Item Value Reference Range Interpretation Comments GONORRHEA, TMA (test code = 13874) NEGATIVE CHLAMYDIA, TMA (test code = 97662) NEGATIVE CULTURE, [id number] 00:00:00 Test Item Value Reference Range Interpretation Comments CULTURE, URINE (test SPECIMEN NUMBER: code = 55232) [id number] CULTURE, [id number] 00:00:00 Test Item Value Reference Range Interpretation Comments CULTURE, URINE (test SPECIMEN NUMBER: code = 49317) [id number] CULTURE, [id number] 00:00:00 Test Item Value Reference Range Interpretation Comments CULTURE, URINE (test SPECIMEN NUMBER: code = 03808) [id number] CULTURE, [id number] 00:00:00 Test Item Value Reference Range Interpretation Comments CULTURE, URINE (test SPECIMEN NUMBER: code = 87777) [id number] CULTURE, [id number] 00:00:00 Test Item Value Reference Range Interpretation Comments CULTURE, URINE (test SPECIMEN NUMBER: code = 97425) [id number] CULTURE, [id number] 00:00:00 Test Item Value Reference Range Interpretation Comments CULTURE, URINE (test SPECIMEN NUMBER: code = 41560) [id number] HEMOGLOBIN [id number] 00:00:00 Test Item Value Reference Range Interpretation Comments HEMOGLOBIN A1c (test code = 98141) 5.5 % HEMOGLOBIN [id number] 00:00:00 Test Item Value Reference Range Interpretation Comments HEMOGLOBIN A1c (test code = 78780) 5.5 % HEMOGLOBIN [id number] 00:00:00 Test Item Value Reference Range Interpretation Comments HEMOGLOBIN A1c (test code = 74569) 5.5 % CBC W/AUTO [id number] 00:00:00 Test Item Value Reference Range Interpretation [...] code = 1015) 310 K/UL CBC W/AUTO [id number] 00:00:00 Test Item Value Reference Range Interpretation [...] code = 1015) 310 K/UL CBC W/AUTO [id number] 00:00:00 Test Item Value Reference Range Interpretation [...] code = 1015) 310 K/UL COMPREHENSIVE METABOLIC [id number] 00:00:00 Test Item Value Reference Range Interpretation Comments GLUCOSE (test code = 2217) 73 MG/DL BUN (test code = 2208) 10 MG/DL CREATININE (test code = 2214) 0.51 MG/DL eGFR AMER. (test code 158 ML/MIN/1.73 = 52367) eGFR NON- AMER. (test 136 ML/MIN/1.73 code = 31976) CALCULATED BUN/CREAT (test 20 RATIO code = [...] code = 2219) 23 U/L COMPREHENSIVE METABOLIC [id number] 00:00:00 Test Item Value Reference Range Interpretation Comments GLUCOSE (test code = 2217) 73 MG/DL BUN (test code = 2208) 10 MG/DL CREATININE (test code = 2214) 0.51 MG/DL eGFR AMER. (test code 158 ML/MIN/1.73 = 37718) eGFR NON- AMER. (test 136 ML/MIN/1.73 code = 61649) CALCULATED BUN/CREAT (test 20 RATIO code = [...] (test code = 2219) 23 U/L LIPID [id number] 00:00:00 Test Item Value Reference Range Interpretation Comments CHOLESTEROL (test code = 2210) 167 MG/DL TRIGLYCERIDES (test code = 2232) 109 MG/DL HDL CHOLESTEROL (test code = 2220) 58 MG/DL CALCULATED LDL CHOL (test code = 87 MG/DL 223) RISK RATIO LDL/HDL (test code = 1.50 RATIO 2238) LIPID [id number] 00:00:00 Test Item Value Reference Range Interpretation [...] (test code = 2821) 1.5 UIU/ML HEMOGLOBIN [id number] 00:00:00 Test Item Value Reference Range Interpretation Comments HEMOGLOBIN A1c (test code = 64648) 5.5 % HEMOGLOBIN [id number] 00:00:00 Test Item Value Reference Range Interpretation Comments HEMOGLOBIN A1c (test code = 56987) 5.5 % HEMOGLOBIN [id number] 00:00:00 Test Item Value Reference Range Interpretation Comments HEMOGLOBIN A1c (test code = 93082) 5.5 % HEMOGLOBIN [id number] 00:00:00 Test Item Value Reference Range Interpretation Comments HEMOGLOBIN A1c (test code = 22116) 5.5 % HEMOGLOBIN [id number] 00:00:00 Test Item Value Reference Range Interpretation Comments HEMOGLOBIN A1c (test code = 96758) 5.5 % CBC W/AUTO [id number] 00:00:00 Test Item Value Reference Range Interpretation [...] code = 1015) 310 K/UL CBC W/AUTO [id number] 00:00:00 Test Item Value Reference Range Interpretation [...] code = 1015) 310 K/UL CBC W/AUTO [id number] 00:00:00 Test Item Value Reference Range Interpretation [...] code = 1015) 310 K/UL COMPREHENSIVE METABOLIC [id number] 00:00:00 Test Item Value Reference Range Interpretation Comments GLUCOSE (test code = 2217) 73 MG/DL BUN (test code = 2208) 10 MG/DL CREATININE (test code = 2214) 0.51 MG/DL eGFR AMER. (test code 158 ML/MIN/1.73 = 30351) eGFR NON- AMER. (test 136 ML/MIN/1.73 code = 91312) CALCULATED BUN/CREAT (test 20 RATIO code = [...] code = 2219) 23 U/L COMPREHENSIVE METABOLIC [id number] 00:00:00 Test Item Value Reference Range Interpretation Comments GLUCOSE (test code = 2217) 73 MG/DL BUN (test code = 2208) 10 MG/DL CREATININE (test code = 2214) 0.51 MG/DL eGFR AMER. (test code 158 ML/MIN/1.73 = 09524) eGFR NON- AMER. (test 136 ML/MIN/1.73 code = 27609) CALCULATED BUN/CREAT (test 20 RATIO code = [...] (test code = 2219) 23 U/L LIPID [id number] 00:00:00 Test Item Value Reference Range Interpretation Comments CHOLESTEROL (test code = 2210) 167 MG/DL TRIGLYCERIDES (test code = 2232) 109 MG/DL HDL CHOLESTEROL (test code = 2220) 58 MG/DL CALCULATED LDL CHOL (test code = 87 MG/DL 2237) RISK RATIO LDL/HDL (test code = 1.50 RATIO 2238) LIPID [id number] 00:00:00 Test Item Value Reference Range Interpretation [...] (test code = 2821) 1.5 UIU/ML HEMOGLOBIN [id number] 00:00:00 Test Item Value Reference Range Interpretation Comments HEMOGLOBIN A1c (test code = 44811) 5.5 % CBC W/AUTO [id number] 00:00:00 Test Item Value Reference Range Interpretation [...] code = 1015) 310 K/UL CBC W/AUTO [id number] 00:00:00 Test Item Value Reference Range Interpretation [...] code = 1015) 310 K/UL CBC W/AUTO [id number] 00:00:00 Test Item Value Reference Range Interpretation [...] code = 1015) 310 K/UL COMPREHENSIVE METABOLIC [id number] 00:00:00 Test Item Value Reference Range Interpretation Comments GLUCOSE (test code = 2217) 73 MG/DL BUN (test code = 2208) 10 MG/DL CREATININE (test code = 2214) 0.51 MG/DL eGFR AMER. (test code 158 ML/MIN/1.73 = 85263) eGFR NON- AMER. (test 136 ML/MIN/1.73 code = 76453) CALCULATED BUN/CREAT (test 20 RATIO code = [...] code = 2219) 23 U/L COMPREHENSIVE METABOLIC [id number] 00:00:00 Test Item Value Reference Range Interpretation Comments GLUCOSE (test code = 2217) 73 MG/DL BUN (test code = 2208) 10 MG/DL CREATININE (test code = 2214) 0.51 MG/DL eGFR AMER. (test code 158 ML/MIN/1.73 = 80008) eGFR NON- AMER. (test 136 ML/MIN/1.73 code = 72463) CALCULATED BUN/CREAT (test 20 RATIO code = [...] (test code = 2219) 23 U/L LIPID [id number] 00:00:00 Test Item Value Reference Range Interpretation Comments CHOLESTEROL (test code = 2210) 167 MG/DL TRIGLYCERIDES (test code = 2232) 109 MG/DL HDL CHOLESTEROL (test code = 2220) 58 MG/DL CALCULATED LDL CHOL (test code = 87 MG/DL 2237) RISK RATIO LDL/HDL (test code = 1.50 RATIO 2238) LIPID [id number] 00:00:00 Test Item Value Reference Range Interpretation [...]
[2022-12-25] MEDS ORDERED: ONDANSETRON 4 MG/2 ML VIAL ONE (20:47)
[2022-12-25] MEDS ORDERED: HYDROMORPHONE HCL 1 MG/ML INJ ONE (20:47)
--- NOTE | 2022-12-25 21:25 | RAD REPORT ---
EXAM DESCRIPTION: [facility] Single View12/25/2022 8:58 pm CLINICAL HISTORY: weakness COMPARISON: Chest Single View dated 10/13/2022; Chest Single View dated 10/10/2022; Chest Single View dated 12/08/2016; CHEST SINGLE VIEW dated 12/03/2013 TECHNIQUE: Portable AP view of the chest. FINDINGS: Decreased inspiratory effort limits evaluation. The lungs are clear.Central streaky opacit ies and crowding of the vascular markings may relate to atelectasis, or be due to decreased inspirato ry effort. No pneumothorax or effusion. The cardiomediastinal contours are unremarkable. IMPRESSION: No acute cardiopulmonary process.
[2022-12-25 22:32] LABS: Absolute Lymphocytes (CBC) 3.6 K/uL (0.7-4.9); Hematocrit 35.1 % (36.0-45.0); Lymphocytes % 37.5 % (15.3-44.8); MCV 79.1 fL (80-100); MPV 8.5 fL (7.6-11.3); RBC Red Blood Cell Count 4.43 M/uL (3.86-4.86)
--- NOTE | 2022-12-25 22:46 | RAD REPORT ---
EXAM DESCRIPTION: CT - Head Brain Wo Cont - 12/25/2022 10:25 pm CLINICAL HISTORY: HEADACHE COMPARISON: Head Brain Wo Cont dated 10/10/2022 TECHNIQUE: Noncontrast head CT images ad were obtained without IV contrast. Multiplanar reformats we re generated and reviewed. All CT scans are performed using dose optimization technique as appropriate and may include automated exposure control or mA/KV adjustment according to patient size. FINDINGS: No intracranial hemorrhage, mass, or edema. Empty sella again noted. Midline structures ar e otherwise unremarkable. Normal ventricular caliber for age. Burnette-white matter differentiation is preserved, without evidence of acute infarct. No abnormal extra- axial fluid collections. Mastoid air cells and visualized portions of the paranasal sinuses are clear. No acute bony findings. IMPRESSION: No evidence of an acute intracranial process. Empty sella again noted, which could B in dicative of idiopathic intracranial hypertension in the appropriate clinical setting.
[2022-12-25 22:48] LABS: ALT/SGPT 17 U/L (13-56); AST/SGOT 10 U/L (15-37); Albumin 3.3 g/dL (3.4-5.0); Alkaline Phosphatase 53 U/L (45-117); BUN Blood Urea Nitrogen 7 mg/dL (7-18); Bicarbonate 24 mEq/L (21-32); Bilirubin Total 0.2 mg/dL (0.2-1.0); Glomerular Filtration Rate 122 ml/min (=/>90); Glucose Level 93 mg/dL (74-106); Magnesium 1.8 mg/dL (1.6-2.4); NT PRO-BNP 24 pg/mL (<125); Potassium 3.4 mEq/L (3.5-5.1); Protein, Total 7.9 g/dL (6.4-8.2); Sodium Level 136 mEq/L (136-145); Troponin High Sensitivity 3.1 pg/mL (<58.9)
[2022-12-25 22:51] LABS: Bilirubin Direct < 0.1 mg/dL (0-0.2); Protime INR 1.1
[2022-12-25 23:30] LABS: Anisocytosis 1+; Blood Morphology Comment NOTED (NOT SEEN); Ovalocytes 1+; Platelet Estimate ADEQ; White Blood Cell Scan OK (OK)
[2022-12-25] MEDS ORDERED: DIPHENHYDRAMINE 50 MG/ML VIAL ONE (23:35)
[2022-12-26 00:12] LABS: Specific Gravity 1.015 (1.005-1.030); Urine Bacteria None Seen /HPF (<20); Urine Bilirubin NEGATIVE (Negative); Urine Blood Negative (Negative); Urine Clarity Clear (Clear); Urine Color Light-Yellow (Yellow); Urine Glucose NEGATIVE (Negative); Urine Protein NEGATIVE (Negative); Urine RBC None Seen /HPF (None Seen); Urine Urobilinogen Normal (Normal); Urine pH 6.5 (5.0-7.0)
[2022-12-26] MEDS ORDERED: METHYLPREDNISOLONE 125 MG INJ ONE (00:12)
[2022-12-26] MEDS ORDERED: POTASSIUM 25 MEQ EFFERV TAB ONE (00:13)
[2022-12-26] MEDS ORDERED: FAMOTIDINE 20 MG/2 ML VIAL IV ONE (00:13)
[2022-12-26] MEDS ORDERED: DIPHENHYDRAMINE 50 MG/ML VIAL ONE (00:13)
[2022-12-26 00:17] LABS: Specific Gravity 1.015 (1.005-1.030)
--- NOTE | 2022-12-26 00:17 | ER ---
Nurse's Notes [facility] Name: Taylor Rodriguez Age: 27 yrs Sex: Female : 1995 Arrival Date: 12/25/2022 Time: 19:02 Bed 6 Private MD: Diagnosis: Chronic pain, not elsewhere classified;Hypertensive heart disease without heart failure;Obesity, unspecified;Hypokalemia Presentation: 12/25 19:09 Chief complaint: EMS states: "She hasn't been able to complete physical therapy due to ll1 feeling bad. She says she's shaking and feels weak and pain all over. Pts BGL 96". Coronavirus screen: At this time, the client does not indicate any symptoms associated with coronavirus-19. Ebola Screen: No symptoms or risks identified at this time. Initial Sepsis Screen: Does the patient meet any 2 criteria? No. Patient's initial sepsis screen is negative. Does the patient have a suspected source of infection? No. Patient's initial sepsis screen is negative. Risk Assessment: Do you want to hurt yourself or someone else? Patient reports no desire to harm self or others. Onset of symptoms was December 25, 2022. 19:09 Method Of Arrival: EMS: [facility] ll1 19:09 Acuity: MILAN 3 ll1 Triage Assessment: 19:13 General: Appears uncomfortable, Behavior is cooperative. Neuro: Level of Consciousness ll1 is awake, alert, obeys commands, Oriented to person, place, time, situation, Appropriate for age. Neuro: Reports weakness. Cardiovascular: Patient's skin is warm and dry. Respiratory: Airway is patent Respiratory effort is even, unlabored, Respiratory pattern is regular, symmetrical. Derm: Skin is pink, warm \\T\\ dry. Historical: - Allergies: 19:12 Naproxen; ll1 - Home Meds: 19:12 aripiprazole oral [Active]; duloxetine oral [Active]; Ferrous Sulfate Oral [Active]; ll1 - PMHx: 19:12 Anxiety; Bipolar disorder; Depression; Fibromyalgia; Chronic pain; High Blood Pressure; ll1 Schizophrenia; Sleep Apnea; Schizophrenia; - Immunization history:: Adult Immunizations up to date. - Social history:: Smoking status: Patient denies any tobacco usage or history of. Screenin/28 00:[address] [facility] ED Fall Risk Assessment (Adult) Score/Fall Risk Level 0 - 2 = Low Risk. Abuse as6 screen: Denies threats or abuse. Denies injuries from another. Nutritional screening: No deficits noted. Tuberculosis screening: No symptoms or risk factors identified. Assessment: 12/25 21:35 General: Appears in no apparent distress. comfortable, obese, well developed, Behavior pf1 is calm, cooperative, appropriate for age, quiet, Reports fatigue for 1-2 days. 21:35 Pain: Complains of pain in generalized pain Pain currently is 8 out of 10 on a pain pf1 scale. Neuro: Level of Consciousness is awake, alert, obeys commands, Oriented to person, place, time, situation, Reports weakness since patient stated was feeling weak today and was not able to complete physical therapy today. Neuro:. Cardiovascular: No deficits noted. Capillary refill < 3 seconds Patient's skin is warm and dry. Respiratory: No deficits noted. Airway is patent Trachea midline Respiratory effort is even, unlabored, Respiratory pattern is regular, symmetrical, Breath sounds are clear bilaterally. GI: No deficits noted. No signs and/or symptoms were reported involving the gastrointestinal system. Abdomen is round non-distended, Bowel sounds present X 4 quads. : No deficits noted. No signs and/or symptoms were reported regarding the genitourinary system. EENT: No deficits noted. No signs and/or symptoms were reported regarding the EENT system. Derm: No deficits noted. No signs and/or symptoms reported regarding the dermatologic system. Musculoskeletal: Circulation, motion, and sensation intact. Capillary refill < 3 seconds, Range of motion: intact in all extremities. 22:30 Reassessment: Patient appears in no apparent distress at this time. Patient and/or pf1 family updated on plan of care and expected duration. Pain level reassessed. Patient is alert, oriented x 3, equal unlabored respirations, skin warm/dry/pink. Patient states symptoms have improved. 23:30 Reassessment: Patient appears in no apparent distress at this time. Patient and/or pf1 family updated on plan of care and expected duration. Pain level reassessed. Patient is alert, oriented x 3, equal unlabored respirations, skin warm/dry/pink. Patient states symptoms have improved. Vital Signs: 19:09 BP 160 / 118; Pulse 82; Resp 18; Temp 98.7(O); Pulse Ox 99% on R/A; Weight 127.01 kg; ll1 Height 5 ft. 2 in. ; Pain 8/10; 21:00 BP 158 / 99; Pulse 83; Resp 18 S; Pulse Ox 98% on R/A; as6 22:00 BP 151 / 96; Pulse 87; Resp 18 S; Pulse Ox 97% on R/A; as6 23:14 BP 148 / 83; Pulse 85; Resp 20 S; Pulse Ox 98% on R/A; as6 23:45 BP 115 / 67; Pulse 83; Resp 18; Pulse Ox 97% on R/A; pf1 19:09 Body Mass Index 51.21 (127.01 kg, 157.48 cm) ll1 19:09 Pain Scale: Adult ll1 ED Course: 19:07 Patient arrived in ED. mr 19:09 Last Saldaña PA is PHCP. cp 19:09 Last Barrientos MD is Attending Physician. cp 19:09 Arm band placed on. ll1 19:12 Triage completed. ll1 21:00 XRAY Chest (1 view) In Process Unspecified. EDMS 22:02 Inserted saline lock: 20 gauge in right antecubital area, using aseptic technique. as7 22:27 CT Head Brain wo Cont In Process Unspecified. EDMS 23:30 PREGU Sent. pf1 23:30 Urinalysis W/Microscopic Sent. pf1 12/26 00:17 Bed in low position. Call light in reach. Side rails up X2. Adult w/ patient. as6 00:17 No provider procedures requiring assistance completed. as6 00:34 IV discontinued, intact, bleeding controlled, No redness/swelling at site. Pressure pf1 dressing applied. Administered Medications: 12/25 21:07 Drug: HYDROmorphone IM 3 mg Route: IM; Site: right deltoid; kl 21:35 Follow up: Response: No adverse reaction; Marked relief of symptoms kl 21:07 Drug: Zofran IM 4 mg Route: IM; Site: left deltoid; kl 21:35 Follow up: Response: No adverse reaction; Marked relief of symptoms kl 23:31 Drug: diphenhydrAMINE IVP 25 mg Route: IVP; Site: right antecubital; as6 12/26 00:16 Follow up: Response: No adverse reaction as6 00:15 Drug: Potassium PO Effervescent Tablet 25 mEq Route: PO; as6 00:16 Follow up: Response: No adverse reaction as6 00:16 Drug: MethylPrednisoLONE IVP 125 mg Route: IVP; Site: right antecubital; as6 00:16 Follow up: Response: No adverse reaction as6 00:16 Drug: Famotidine IVP 20 mg Route: IVP; Site: right antecubital; as6 00:16 Follow up: Response: No adverse reaction as6 00:16 Drug: diphenhydrAMINE IVP 25 mg Route: IVP; Site: right antecubital; as6 00:16 Follow up: Response: No adverse reaction as6 Medication: 00:17 VIS not applicable for this client. as6 Outcome: 00:17 Discharge ordered by MD. cp 00:17 Condition: stable as6 00:34 Discharged to home via wheelchair, with family. pf1 00:34 Discharge instructions given to patient, Instructed on discharge instructions, follow up and referral plans. Demonstrated understanding of instructions, follow-up care, medications. 00:44 Patient left the ED. pf1 Signatures: Dispatcher [employer] EDAme Aguilera RN RN kl Rivera, Marlene mr Last Saldaña, PA PA cp Dakotah Garduno RN RN llMarin Malik RN RN as6 Glenny navarro RN RN pf1 Concepción Chase as7 Corrections: (The following items were deleted from the chart) 12/25 19:12 19:09 Chief complaint: EMS states: "She hasn't been able to complete physical therapy ll1 due to feeling bad. She says she's shaking and feels weak and pain all over" ll1 12/26 00:36 00:36 General: Appears pf1 pf1
--- NOTE | 2022-12-26 00:17 | EDPHYS ---
Physician Documentation [facility] Name: Taylor Rodriguez Age: 27 yrs Sex: Female : 1995 Arrival Date: 12/25/2022 Time: 19:02 Bed 6 Private MD: ED Physician Last Barrientos HPI: 12/25 19:25 This 27 yrs old Black Female presents to ER via EMS with complaints of High Blood cp Pressure. 19:25 The patient has elevated blood pressure and discovered this physical therapy office. cp Onset: The symptoms/episode began/occurred today. Associated signs and symptoms: Pertinent positives: chest pain, headache, back pain, pain all over, Pertinent negatives: fever. Historical: - Allergies: 19:12 Naproxen; ll1 - Home Meds: 19:12 aripiprazole oral [Active]; duloxetine oral [Active]; Ferrous Sulfate Oral [Active]; ll1 - PMHx: 19:12 Anxiety; Bipolar disorder; Depression; Fibromyalgia; Chronic pain; High Blood Pressure; ll1 Schizophrenia; Sleep Apnea; Schizophrenia; - Immunization history:: Adult Immunizations up to date. - Social history:: Smoking status: Patient denies any tobacco usage or history of. ROS: 19:30 Constitutional: Positive for body aches, pain all over, Negative for chills, fever, cp poor PO intake. 19:30 Eyes: Negative for injury, pain, redness, and discharge. cp 19:30 Cardiovascular: Positive for chest pain. 19:30 Respiratory: Positive for shortness of breath, Negative for cough, wheezing. 19:30 Abdomen/GI: Positive for abdominal pain, Negative for vomiting, diarrhea, constipation. 19:30 Back: Positive for pain at rest, pain with movement. Exam: 22:46 ECG was reviewed by the Attending Physician. cp Vital Signs: 19:09 BP 160 / 118; Pulse 82; Resp 18; Temp 98.7(O); Pulse Ox 99% on R/A; Weight 127.01 kg; ll1 Height 5 ft. 2 in. ; Pain 8/10; 21:00 BP 158 / 99; Pulse 83; Resp 18 S; Pulse Ox 98% on R/A; as6 22:00 BP 151 / 96; Pulse 87; Resp 18 S; Pulse Ox 97% on R/A; as6 23:14 BP 148 / 83; Pulse 85; Resp 20 S; Pulse Ox 98% on R/A; as6 23:45 BP 115 / 67; Pulse 83; Resp 18; Pulse Ox 97% on R/A; pf1 19:09 Body Mass Index 51.21 (127.01 kg, 157.48 cm) ll1 19:09 Pain Scale: Adult ll1 MDM: 19:17 Patient medically screened. [facility] 12/25 19:21 Order name: Basic Metabolic Panel; Complete Time: 23:50 cp 12/25 23:50 Interpretation: Normal except: K 3.4; CL 108. cp 12/25 19:21 Order name: CBC with Diff; Complete Time: 23:50 cp 12/25 23:50 Interpretation: Normal except: HGB 11.4; HCT 35.1; MCV 79.1; MCH 25.7; RDW 16.6; cp EOSINOPHIL % 5.7; EOSA 0.6. 12/25 19:21 Order name: LFT's; Complete Time: 23:50 cp 12/25 23:50 Interpretation: Normal except: AST 10; ALB 3.3; GLOB 4.6; A/G 0.7. cp 12/25 19:21 Order name: Magnesium; Complete Time: 23:50 cp 12/25 19:21 Order name: NT PRO-BNP; Complete Time: 23:50 cp 12/25 19:21 Order name: PT-INR; Complete Time: 23:50 cp 12/25 19:21 Order name: Troponin HS; Complete Time: 23:50 cp 12/25 22:15 Order name: Urinalysis W/Microscopic cp 12/25 22:15 Order name: PREGU cp 12/25 22:53 Order name: CBC Smear Scan; Complete Time: 23:50 EDMS 12/25 19:21 Order name: XRAY Chest (1 view); Complete Time: 23:50 cp 12/25 22:01 Order name: CT Head Brain wo Cont; Complete Time: 23:50 cp 12/25 19:21 Order name: EKG; Complete Time: 19:22 cp 12/25 19:21 Order name: Cardiac monitoring; Complete Time: 22:44 cp 12/25 19:21 Order name: EKG - Nurse/Tech; Complete Time: 22:44 cp 12/25 19:21 Order name: IV Saline Lock; Complete Time: 21:49 cp 12/25 19:21 Order name: Labs collected and sent; Complete Time: 23:13 cp 12/25 19:21 Order name: O2 Per Protocol; Complete Time: :44 cp 12/25 19:21 Order name: O2 Sat Monitoring; Complete Time: 22:44 cp EC:46 Rate is 77 beats/min. Rhythm is regular. MN interval is normal. QRS interval is normal. cp QT interval is normal. T waves are Inverted in leads III, aVR, V3. Interpreted by me. Reviewed by me. Administered Medications: 21:07 Drug: HYDROmorphone IM 3 mg Route: IM; Site: right deltoid; kl 21:35 Follow up: Response: No adverse reaction; Marked relief of symptoms kl 21:07 Drug: Zofran IM 4 mg Route: IM; Site: left deltoid; kl 21:35 Follow up: Response: No adverse reaction; Marked relief of symptoms kl 23:31 Drug: diphenhydrAMINE IVP 25 mg Route: IVP; Site: right antecubital; as6 12/26 00:16 Follow up: Response: No adverse reaction as6 00:15 Drug: Potassium PO Effervescent Tablet 25 mEq Route: PO; as6 00:16 Follow up: Response: No adverse reaction as6 00:16 Drug: MethylPrednisoLONE IVP 125 mg Route: IVP; Site: right antecubital; as6 00:16 Follow up: Response: No adverse reaction as6 00:16 Drug: Famotidine IVP 20 mg Route: IVP; Site: right antecubital; as6 00:16 Follow up: Response: No adverse reaction as6 00:16 Drug: diphenhydrAMINE IVP 25 mg Route: IVP; Site: right antecubital; as6 00:16 Follow up: Response: No adverse reaction as6 Disposition Summary: 12/26/22 00:17 Discharge Ordered Location: Home cp Problem: an ongoing problem cp Symptoms: have improved cp Condition: Stable cp Diagnosis - Chronic pain, not elsewhere classified cp - Hypertensive heart disease without heart failure cp - Obesity, unspecified cp - Hypokalemia cp Followup: cp - With: Private Physician - When: 2 - 3 days - Reason: Recheck today's complaints Discharge Instructions: - Discharge Summary Sheet cp - Chronic Pain, Adult cp - Potassium Content of Foods cp - Hypertension, Adult cp - Obesity, Adult cp - Hypokalemia cp - Form - Blood Pressure Record Sheet cp - How to Take Your Blood Pressure cp Forms: - Medication Reconciliation Form cp - Thank You Letter cp - Antibiotic Education cp - Prescription Opioid Use cp Signatures: Dispatcher [employer] Ame Dhillon, Last Davis RN, MD MD cha Page, Corey, PA PA cp Lewis, Lynsay, RN RN ll1 Marin Parish RN RN as6
[2022-12-26 02:01] VITALS: TEMP 98.7
[2022-12-26 02:07] VITALS: BP 115/67; O2SAT 97
--- NOTE | 2022-12-27 15:22 | EKG ---
Test Date: 2022-12-25 Test Time: 22:40:58 Tour Sales Representative: MEASUREMENT RESULTS: Intervals: Rate: 77 [place]: 164 QRSD: 84 QT: 396 QTc: 448 [place]: P: 18 [place]: 164 QRS: 7 T: -5 INTERPRETIVE STATEMENTS: Normal sinus rhythm Normal ECG Compared to ECG 12/20/2022 11:41:36 No significant changes Electronically Signed On 12-27-22 15:21:30 CDT by Parmjit Yepez
== END 2022-12-26 00:44 | disposition home or self-care (01) ==
LOC: ER 19:02
DX: G89.29 Other chronic pain (principal); I11.9 Hypertensive heart disease without heart failure; E87.6 Hypokalemia; E66.9 Obesity, unspecified; Z68.43 Body mass index [BMI] 50.0-59.9, adult; F20.9 Schizophrenia, unspecified; Z88.6 Allergy status to analgesic agent
CPT/HCPCS: 93005; 85025; 81001; 80048; 36415; 83735; 81025; 85610; 80076; 84484; 83880; 70450; 71045; J1200 ×2; J1170; J2930; J2405

== ENCOUNTER 2023-01-09 17:30 | Emergency (ER) | payer OTHER ==
--- OUTSIDE RECORDS SUMMARY | 2023-01-09 17:42 | XMS REPORT | Continuity of Care Document ---
:1995 Author Organization [facility] t Address [address] [facility]. [address] [place] [address] Care Team Providers Name Role Phone Roman YOUNG, [facility] Primary Care Physician [phone] DARLIN VICK Attending Clinician Unavailable GAURAV PURVIS Attending Clinician Unavailable SPENSER STOKES Attending Clinician Unavailable KEYONNA BRIONES Attending Clinician Unavailable ROBYN GARY Attending Clinician Unavailable JAROD MOMIN Attending Clinician Unavailable PLABPA Attending Clinician Unavailable LAB90 Attending Clinician Unavailable JENNIFER BYNUM Attending Clinician Unavailable BYRON MALHOTRA Attending Clinician Unavailable JALYN CRUZ Attending Clinician Unavailable MD ARAVIND Attending Clinician Unavailable MANOLO MARTINEZ Attending Clinician Unavailable GAUTAM GIVENS Attending Clinician Unavailable PL, TECH 1 Attending Clinician Unavailable LAB47 Attending Clinician Unavailable MARIANO Attending Clinician Unavailable ANNEMARIE GRAFF Attending Clinician Unavailable Alexandre Wick Attending Clinician SHEY BIANCHI Attending Clinician Unavailable Doctor Unassigned, [place] Attending Clinician Unavailable Shey Bianchi MD Attending Clinician ALEXANDRE DELGADO Attending Clinician Unavailable Ian YOUNG, James Attending Clinician Care, [facility] Primary Attending Clinician Unavailable ILIANA LAMAR Attending Clinician Unavailable Annemarie Alexander Attending Clinician Dannie Botello MD Attending Clinician DANNIE BOTELLO Attending Clinician Unavailable MARIANO Admitting Clinician Unavailable ALEXANDRE DELGADO Admitting Clinician Unavailable Payers Payer Name Policy Type Policy Number Effective Date Expiration Date S [place] [employer] MP SILVER: 9 [id number] 2022 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 9-14 ity of 00:00: [place] [facility] Manic Manic Disease Active Univers depression depression 9-14 it y of 00:00: [place] 00 Medical Branch Allergies, Adverse Reactions, Alerts [...] Univers INGREDI 8- ity of 00:00: [place] 00 Medical Branch Codeine Propensi Active Jelena ty to 5-19 Seybold adverse 00:00: - reaction 00 Externa s l Naproxen Propensi Active ty to 5-19 adverse 00:00: reaction 00 to drug NO KNOWN Drug Active Univers ALLERGIE Class ity of S [facility] Social History Social Habit Start Date Stop Date Quantity Comments Source Gender identity 2022-09-04 Identifies as Jelena Ibrahim - 10:33:35 male gender External (finding) Sexual orientation 2022-09-04 Jelena Seybold - 10:33:35 External Exposure to Not sure University of SARS-CoV-2 (event) [place] [facility] History of tobacco Cigarette Smoker Jelena Eatonmarcel - use External History SDOH Jelena jerzy ld - Alcohol Frequency Externa l History SDOH Jelena Umao ld - Alcohol Std Drinks Hazardous Substances Scientist al History SDOH Jelena Guevaratiffanyo ld - Alcohol Binge External Alcohol intake 2022-12-29 2022-12-29 Current drinker Emanuelse emmy Guevaratiffanyold - 00:00:00 00:00:00 of alcohol External (finding) History of Social 2022-12-22 2022-12-22 Jelena Guevaraybold - function 00:00:00 00:00:00 External Tobacco use and 2022-12-22 2022-12-22 Smokeless tobacco Ke sveta Guevaraybold - exposure 00:00:00 00:00:00 non-user External Alcohol Comment 2022-09-09 2022-09-09 rare Jelena allenold - 00:00:00 00:00:00 External Tobacco Comment 2019-08-16 2019-08-16 Quit Universit y of 00:00:00 00:00:00 smoking/vaping [facility] earlier this year Branch Sex Ass[birth year] At [birth year] F Jelena Guevara ybold - 00:00:00 00:00:00 External Smoking Status Start Date Stop Date Source Occasional tobacco 2022-12-22 00:00:00 Jelena Guevara kale - smoker External Never smoked tobacco Jelena Guevaratiffany old - External Former smoker 2020-09-07 00:00:00 2020-09-[address] [place] [address] [facility] 00:00:00 Medical Branch Medications Ordered Filled Start Stop Current Ordering Indication Dosage Frequency Signature Comments Components Source Medication Medication Date Date Medication? Clinician (SIG) Name Name Trazodone 2022- No [id number] 100mg Take 1 Jelena HCl 100 MG 12-29 tablet Seybol d oral Tablet 11:10: 00:00 (100 mg - 14 :00 total) by Externa mouth at l bedtime Cyanocobala Yes Take by Emanuel y min 12-29 mouth Seybold (VITAMIN B 09:56: - 12 OR) 28 Externa l Tramadol Yes [id number] 50mg Q.25D Take 1 K elsey HCl 5-01 tablet (50 Seybold (ULTRAM) 50 00:00: mg total) - MG oral 00 by mouth Externa Tablet every 6 l hours as needed for pain hydrOXYzine Yes Jelena HCl 25 MG 4-26 Seybold oral Tablet 00:00: - 00 Externa l Trazodone 0 Yes [id number] 100mg Take 1 K elsey HCl 100 MG 4-24 tablet Seybold oral Tablet 08:55: (100 mg - 22 total) by Externa mouth at l bedtime Cyanocobala Yes Take by Emanuel sey min 4-24 mouth Seybold (VITAMIN B 08:55: - 12 OR) 22 Externa l Albuterol Yes [id number] 2{puff} Q.25D Inhale 2 Jelena HFA 108 (90 4-24 puffs into Se ybold Base) 00:00: the lungs - MCG/ACT IN 00 every 6 Hazardous Substances Scientist a AERS hours as l needed for wheezing or shortness of breath Meclizine Yes [id number] TAKE ONE Jelena HCl 25 MG 4-24 (1) Seybold oral Tablet 00:00: TABLET(S) - 00 BY MOUTH Externa THREE l TIMES A DAY NEEDED. Albuterol Yes [id number] 2{puff} Q.25D Inhale 2 Jelena HFA 108 (90 4-24 puffs into Se ybold Base) 00:00: the lungs - MCG/ACT IN 00 every 6 Hazardous Substances Scientist a AERS hours as l needed for wheezing or shortness of breath Cyclobenzap 0 Yes 10mg Q.[id number] Take 1 Jelena rine HCl 10 4-22 [id number] tablet (10 Seybold MG oral 00:00: 3D mg total) - Tablet 00 by mouth Externa every 8 l hours as needed Cyclobenzap 2022-0 Yes 10mg Q.[id number] Take 1 Jelena rine HCl 10 4-22 [id number] tablet (10 Seybold MG oral 00:00: 3D mg total) - Tablet 00 by mouth Externa every 8 l hours as needed Gabapentin 2022-0 Yes [id number] 100mg Take 1 Jelena 100 MG oral 4-20 capsule Seybo ld Capsule 00:00: (100 mg - 00 total) by Externa mouth 3 l times daily Gabapentin 3-0 Yes [id number] 100mg Take 1 Jelena 100 MG oral 4-20 capsule Seybo ld Capsule 00:00: (100 mg - 00 total) by Externa mouth 3 l times daily Aripiprazol 2022-0 Yes 15mg Take 1 Ashlie ey e 15 MG 4-19 tablet (15 Seybol d oral Tablet 00:00: mg total) - 00 by mouth Externa at bedtime l Aripiprazol 2022-0 Yes 15mg Take 1 Ashlie ey e 15 MG 4-19 tablet (15 Seybol d oral Tablet 00:00: mg total) - 00 by mouth Externa at bedtime l Trazodone 2022-0 Yes [id number] 100mg Take 1 K elsey HCl 100 MG 4-13 tablet Seybold oral Tablet 10:58: (100 mg - 09 total) by Externa mouth at l bedtime Cyanocobala 2022-0 Yes Take by Emanuel sey min 4-13 mouth Seybold (VITAMIN B 10:58: - 12 OR) 09 Externa l Trazodone 2022-0 Yes [id number] 100mg Take 1 K elsey HCl 100 MG 4-10 tablet Seybold oral Tablet 11:00: (100 mg - 07 total) by Externa mouth at l bedtime Cyanocobala 2022-0 Yes Take by Emanuel sey min 4-10 mouth Seybold (VITAMIN B 11:00: - 12 OR) 07 Externa l Propranolol 3-0 Yes [id number] TAKE ONE Jelena HCl 10 MG 4-10 (1) Seybold oral Tablet 00:00: TABLET(S) - 00 BY MOUTH Externa THREE l TIMES A DAY. Propranolol 2023-0 Yes [id number] TAKE ONE Jelena HCl 10 MG 4-10 (1) Seybold oral Tablet 00:00: TABLET(S) - 00 BY MOUTH Externa THREE l TIMES A DAY. Orphenadrin 3-0 Yes 100mg Q.5D Take 1 Emanuel sey e Citrate 4-10 tablet Seybold CR 100 MG 00:00: (100 mg - oral Tablet 00 total) by Ext jonathan 12 Hour mouth 2 l Sustained times Release daily as needed Propranolol 3-0 Yes [id number] TAKE ONE Jelena HCl 10 MG 4-10 (1) Seybold oral Tablet 00:00: TABLET(S) - 00 BY MOUTH Externa THREE l TIMES A DAY. Orphenadrin 2023-0 Yes 100mg Q.5D Take 1 Emanuel sey e Citrate 4-10 tablet Seybold CR 100 MG 00:00: (100 mg - oral Tablet 00 total) by Ext jonathan 12 Hour mouth 2 l Sustained times Release daily as needed Meloxicam 2023-0 Yes [id number] 15mg Take 1 Jelena 15 MG oral 4-06 tablet (15 Sey bold Tablet 00:00: mg total) - 00 by mouth Externa daily l Meloxicam 2023-0 Yes [id number] 15mg Take 1 Jelena 15 MG oral 4-06 tablet (15 Sey bold Tablet 00:00: mg total) - 00 by mouth Externa daily l Meloxicam 2023-0 Yes [id number] 15mg Take 1 Jelena 15 MG oral 4-06 tablet (15 Sey bold Tablet 00:00: mg total) - 00 by mouth Externa daily l Meloxicam 2023-0 Yes [id number] 15mg Take 1 Jelena 15 MG oral 4-06 tablet (15 Sey bold Tablet 00:00: mg total) - 00 by mouth Externa daily l Duloxetine 2023-0 Yes 30mg Take 1 Kelse y HCl 30 MG 3-31 capsule Seybold oral Cap DR 00:00: (30 mg - Particles 00 total) by Exter na mouth l every morning Duloxetine 2023-0 Yes 30mg Take 1 Kelse y HCl 30 MG 3-[address] Seybold [address] 00:00: (30 mg - Particles 00 total) by Exter na mouth l every morning Meclizine 2023-0 Yes [id number] TAKE ONE Jelena HCl 25 MG 3-24 (1) Seybold oral Tablet 00:00: TABLET(S) - 00 BY MOUTH Externa THREE l TIMES A DAY NEEDED. Meclizine 2023-0 Yes [id number] TAKE ONE Jelena HCl 25 MG 3-24 (1) Seybold oral Tablet 00:00: TABLET(S) - 00 BY MOUTH Externa THREE l TIMES A DAY NEEDED. Meclizine 2023-0 Yes [id number] TAKE ONE Jelena HCl 25 MG 3-24 (1) Seybold oral Tablet 00:00: TABLET(S) - 00 BY MOUTH Externa THREE l TIMES A DAY NEEDED. Losartan 2022-0 Yes [id number] 1{tbl} Take 1 K elsey Potassium-H 3-22 tablet by Sey bold CTZ 50-12.5 00:00: mouth - MG oral 00 daily Externa Tablet l Losartan 2022-0 Yes [id number] 1{tbl} Take 1 K elsey Potassium-H 3-22 tablet by Sey bold CTZ 50-12.5 00:00: mouth - MG oral 00 daily Externa Tablet l Losartan 2022-0 Yes [id number] 1{tbl} Take 1 K elsey Potassium-H 3-22 tablet by Sey bold CTZ 50-12.5 00:00: mouth - MG oral 00 daily Externa Tablet l Losartan 2022-0 Yes [id number] 1{tbl} Take 1 K elsey Potassium-H 3-22 tablet by SeGlipho bold CTZ 50-12.5 00:00: mouth - MG oral 00 daily Externa Tablet l Propranolol 2022-0 2022- No [id number] TAKE ONE Jelena HCl 10 MG 3-10 04-10 (1) Seybold oral Tablet 00:00: 00:00 TABLET(S) - 00 :00 BY MOUTH Externa THREE l TIMES A DAY. Cholecalcif 2022-0 2022- No [id number] 61935V Take 1 Jelena juan 1.25 3-02 04-10 capsule Seybol d MG ([id number] 00:00: 00:00 (50,000 - UT) oral 00 :00 units Externa Capsule total) by l mouth twice a week for 8 doses Trazodone 2022-0 Yes [id number] 100mg Take 100 Jelena HCl 100 MG 2-28 mg by Seybold oral Tablet 09:11: mouth at - 07 bedtime Externa l Cyanocobala 0 Yes Take by Emanuel sey min 2-28 mouth Seybold (VITAMIN B 09:11: - 12 OR) 07 Externa l hydroCHLORO 2022-0 Yes TAKE ONE Ke emirey thiazide 2-23 (1) Seybold 12.5 MG 00:00: CAPSULE(S) - oral 00 BY MOUTH Externa Capsule ONCE A l DAY. hydroCHLORO 2023-0 Yes TAKE ONE Ke lsey thiazide 2-23 (1) Seybold 12.5 MG 00:00: CAPSULE(S) - oral 00 BY MOUTH Externa Capsule ONCE A l DAY. hydroCHLORO 2023-0 Yes TAKE ONE Ke lsey thiazide 2-23 (1) Seybold 12.5 MG 00:00: CAPSULE(S) - oral 00 BY MOUTH Externa Capsule ONCE A l DAY. hydroCHLORO 2023-0 Yes TAKE ONE Ke lsey thiazide 2-23 (1) Seybold 12.5 MG 00:00: CAPSULE(S) - oral 00 BY MOUTH Externa Capsule ONCE A l DAY. hydroCHLORO 2023-0 Yes TAKE ONE Ke lsey thiazide 2-23 (1) Seybold 12.5 MG 00:00: CAPSULE(S) - oral 00 BY MOUTH Externa Capsule ONCE A l DAY. hydrOXYzine 2023-0 Yes 50mg Q.[id number] Take 1 Jelena HCl 50 MG 2-13 [id number] tablet (50 Seybold oral Tablet 00:00: 3D mg total) - 00 by mouth Externa every 8 l hours as needed hydrOXYzine 2023-0 Yes 50mg Q.[id number] Take 1 Jelena HCl 50 MG 2-13 [id number] tablet (50 Seybold oral Tablet 00:00: 3D mg total) - 00 by mouth Externa every 8 l hours as needed Losartan 2023-0 Yes [id number] 1{tbl} Take 1 K elsey Potassium-H 2-10 tablet by Lit romano CTZ 50-12.5 00:00: mouth - MG oral 00 daily Externa Tablet l Meclizine 2023-0 Yes [id number] 25mg Q.[id number] Take 1 Jelena HCl 25 MG 2-10 [id number] tablet (25 Seybold oral Tablet 00:00: 3D mg total) - 00 by mouth 3 Externa times l daily as needed Propranolol 2023-0 Yes [id number] 10mg Take 1 Jelena HCl 10 MG 2-10 tablet (10 Seyb old oral Tablet 00:00: mg total) - 00 by mouth 3 Externa times l daily Losartan 2023-0 Yes [id number] 1{tbl} Take 1 K elsey Potassium-H 2-10 tablet by Lit romano CTZ 50-12.5 00:00: mouth - MG oral 00 daily Externa Tablet l Meclizine 2022-0 Yes [id number] 25mg Q.[id number] Take 1 Jelena HCl 25 MG 2-10 [id number] tablet (25 Seybold oral Tablet 00:00: 3D mg total) - 00 by mouth 3 Externa times l daily as needed Propranolol 2022-0 Yes [id number] 10mg Take 1 Jelena HCl 10 MG 2-10 tablet (10 Seyb old oral Tablet 00:00: mg total) - 00 by mouth 3 Externa times l daily Doxycycline 2022-0 Yes [id number] 100mg Take 1 Jelena Hyclate 100 1-31 tablet Seybol d MG oral 00:00: (100 mg - Tablet 00 total) by Externa mouth 2 l times daily Doxycycline 2022-0 3- No [id number] 100mg Take 1 Jelena Hyclate 100 1-31 02-28 tablet Seybo ld MG oral 00:00: 00:00 (100 mg - Tablet 00 :00 total) by Externa mouth 2 l times daily Trulicity Yes [id number] .75mg Inject Jelena 0.75 1-28 0.75 mg Seybold MG/0.5ML 00:00: into the - subcutaneou 00 skin once Ext jonathan s Solution a week l Pen-injecto r Trulicity 2022- Yes [id number] .75mg Inject Jelena 0.75 1-28 0.75 mg Seybold MG/0.5ML 00:00: into the - subcutaneou 00 skin once Ext jonathan s Solution a week l Pen-injecto r Trulicity 2022-0 Yes [id number] .75mg Inject Jelena 0.75 1-28 0.75 mg Seybold MG/0.5ML 00:00: into the - subcutaneou 00 skin once Ext jonathan s Solution a week l Pen-injecto r Trulicity 2022-0 Yes [id number] .75mg Inject Jelena 0.75 1-28 0.75 mg Seybold MG/0.5ML 00:00: into the - subcutaneou 00 skin once Ext jonathan s Solution a week l Pen-injecto r Aripiprazol 2022- No Kelse y e 20 MG 1-25 01-25 Seybold oral Tablet 11:11: 00:00 - 39 :00 Externa l Aripiprazol 2022- No [id number] 10mg Take 10 mg Jelena e 10 MG 1-25 -25 by mouth 2 Seybo ld oral Tablet 11:11: 00:00 times - 26 :00 daily Externa l Trazodone Yes [id number] 100mg Take 100 Jelena HCl 100 MG 1-25 mg by Seybold oral Tablet 10:31: mouth at - 22 bedtime Externa l Cyanocobala Yes Take by Emanuel sey min 1-25 mouth Seybold (VITAMIN B 10:31: - 12 OR) 22 Externa l Trazodone Yes [id number] 100mg Take 100 Jelena HCl 100 MG 1-25 mg by Seybold oral Tablet 10:31: mouth at - 22 bedtime Externa l Cyanocobala Yes Take by Emanuel sey min 1-25 mouth Seybold (VITAMIN B 10:31: - 12 OR) 22 Externa l hydroCHLORO Yes [id number] 12.5mg Take 1 Jelena thiazide 1-25 capsule Seybold 12.5 MG 00:00: (12.5 mg - oral 00 total) by Externa Capsule mouth l daily Ondansetron Yes [id number] 4mg Q.[id number] Take 1 Jelena (ZOFRAN) 4 1-25 [id number] tablet (4 Seybold MG oral 00:00: 3D mg total) - TABLET 00 by mouth Externa DISPERSIBLE every 8 l hours as needed for nausea Tirzepatide Yes [id number] 2.5mg Inject 0.5 Jelena (Mounjaro) 1-25 mL (2.5 mg Sey bold 2.5 00:00: total) - MG/0.5ML 00 into the Externa subcutaneou skin once l s Solution a week Pen-injecto r Celecoxib Yes [id number] 200mg Take 1 Jelena (CeleBREX) 1-25 capsule Seybol d 200 MG oral 00:00: (200 mg - Capsule 00 total) by Externa mouth 2 l times daily Gabapentin 3-0 Yes [id number] 100mg Take 1 Jelena 100 MG oral 1-25 capsule Seybo ld Capsule 00:00: (100 mg - 00 total) by Externa mouth 3 l times daily Ondansetron 2023-0 Yes [id number] 4mg Q.[id number] Take 1 Jelena (ZOFRAN) 4 1-25 [id number] tablet (4 Seybold MG oral 00:00: 3D mg total) - TABLET 00 by mouth Externa DISPERSIBLE every 8 l hours as needed for nausea Celecoxib 3-0 Yes [id number] 200mg Take 1 Jelena (CeleBREX) 1-25 capsule Seybol d 200 MG oral 00:00: (200 mg - Capsule 00 total) by Externa mouth 2 l times daily Gabapentin 3-0 Yes [id number] 100mg Take 1 Jelena 100 MG oral 1-25 capsule Seybo ld Capsule 00:00: (100 mg - 00 total) by Externa mouth 3 l times daily Ondansetron 3-0 Yes [id number] 4mg Q.[id number] Take 1 Jelena (ZOFRAN) 4 1-25 [id number] tablet (4 Seybold MG oral 00:00: 3D mg total) - TABLET 00 by mouth Externa DISPERSIBLE every 8 l hours as needed for nausea Celecoxib 3-0 Yes [id number] 200mg Take 1 Jelena (CeleBREX) 1-25 capsule Seybol d 200 MG oral 00:00: (200 mg - Capsule 00 total) by Externa mouth 2 l times daily Gabapentin 3-0 Yes [id number] 100mg Take 1 Jelena 100 MG oral 1-25 capsule Seybo ld Capsule 00:00: (100 mg - 00 total) by Externa mouth 3 l times daily Ondansetron 2023-0 Yes [id number] 4mg Q.[id number] Take 1 Jelena (ZOFRAN) 4 1-25 [id number] tablet (4 Seybold MG oral 00:00: 3D mg total) - TABLET 00 by mouth Externa DISPERSIBLE every 8 l hours as needed for nausea Gabapentin 3-0 Yes [id number] 100mg Take 1 Jelena 100 MG oral 1-25 capsule Seybo ld Capsule 00:00: (100 mg - 00 total) by Externa mouth 3 l times daily Ondansetron 2022-0 Yes [id number] 4mg Q.[id number] Take 1 Jelena (ZOFRAN) 4 1-25 [id number] tablet (4 Seybold MG oral 00:00: 3D mg total) - TABLET 00 by mouth Externa DISPERSIBLE every 8 l hours as needed for nausea Gabapentin 2022-0 Yes [id number] 100mg Take 1 Jelena 100 MG oral 1-25 capsule Seybo ld Capsule 00:00: (100 mg - 00 total) by Externa mouth 3 l times daily Ondansetron 2022-0 Yes [id number] 4mg Q.[id number] Take 1 Jelena (ZOFRAN) 4 1-25 [id number] tablet (4 Seybold MG oral 00:00: 3D mg total) - TABLET 00 by mouth Externa DISPERSIBLE every 8 l hours as needed for nausea Ondansetron 2022-0 Yes [id number] 4mg Q.[id number] Take 1 Jelena (ZOFRAN) 4 -25 [id number] tablet (4 Seybold MG oral 00:00: 3D mg total) - TABLET 00 by mouth Externa DISPERSIBLE every 8 l hours as needed for nausea hydroCHLORO 2022-0 2022- No [id number] 12.5mg Take 1 Jelena thiazide 1-25 02-10 [...] Implant 00 Externa l Docusate 0 Yes [id number] 100mg Take 1 Ke lsey Sodium 1-13 capsule Seybold (Colace) 00:00: (100 mg - 100 MG oral 00 total) by Ext jonathan Capsule mouth l daily Ferrous Yes [id number] 325mg Take 1 Emanuel sey Sulfate 1-13 tablet Seybold (Iron) 325 00:00: (325 mg - (65 Fe) MG 00 total) by Exte rna oral Tablet mouth l daily (with breakfast) Docusate Yes [id number] 100mg Take 1 Ke lsey Sodium 1-13 capsule Seybold (Colace) 00:00: (100 mg - 100 MG oral 00 total) by Ext jonathan Capsule mouth l daily Ferrous Yes [id number] 325mg Take 1 Emanuel sey Sulfate 1-13 tablet Seybold (Iron) 325 00:00: (325 mg - (65 Fe) MG 00 total) by Exte rna oral Tablet mouth l daily (with breakfast) Docusate 0 Yes [id number] 100mg Take 1 Ke lsey Sodium 1-13 capsule Seybold (Colace) 00:00: (100 mg - 100 MG oral 00 total) by Ext jonathan Capsule mouth l daily Ferrous 0 Yes [id number] 325mg Take 1 Emanuel sey Sulfate 1-13 tablet Seybold (Iron) 325 00:00: (325 mg - (65 Fe) MG 00 total) by Exte rna oral Tablet mouth l daily (with breakfast) Docusate 0 Yes [id number] 100mg Take 1 Ke lsey Sodium 1-13 capsule Seybold (Colace) 00:00: (100 mg - 100 MG oral 00 total) by Ext jonathan Capsule mouth l daily Ferrous 0 Yes [id number] 325mg Take 1 Emanuel sey Sulfate 1-13 tablet Seybold (Iron) 325 00:00: (325 mg - (65 Fe) MG 00 total) by Exte rna oral Tablet mouth l daily (with breakfast) Docusate 2022-0 Yes [id number] 100mg Take 1 Ke lsey Sodium 1-13 capsule Seybold (Colace) 00:00: (100 mg - 100 MG oral 00 total) by Ext jonathan Capsule mouth l daily Ferrous 2022-0 Yes [id number] 325mg Take 1 Emanuel sey Sulfate 1-13 tablet Seybold (Iron) 325 00:00: (325 mg - (65 Fe) MG 00 total) by Exte rna oral Tablet mouth l daily (with breakfast) Docusate 2022-0 Yes [id number] 100mg Take 1 Ke lsey Sodium 1-13 capsule Seybold (Colace) 00:00: (100 mg - 100 MG oral 00 total) by Ext jonathan Capsule mouth l daily Ferrous 2022-0 Yes [id number] 325mg Take 1 Emanuel sey Sulfate 1-13 tablet Seybold (Iron) 325 00:00: (325 mg - (65 Fe) MG 00 total) by Exte rna oral Tablet mouth l daily (with breakfast) Docusate 2022-0 Yes [id number] 100mg Take 1 Ke lsey Sodium 1-13 capsule Seybold (Colace) 00:00: (100 mg - 100 MG oral 00 total) by Ext jonathan Capsule mouth l daily Ferrous 2022-0 Yes [id number] 325mg Take 1 Emanuel sey Sulfate 1-13 tablet Seybold (Iron) 325 00:00: (325 mg - (65 Fe) MG 00 total) by Exte rna oral Tablet mouth l daily (with breakfast) Nitrofurant 2022-0 2022- No [id number] 100mg Take 1 Jelena oin Monohyd 1-13 [...] 1-11 00:00: 00 LYRICA 150 2019-08 Yes [id number] Take 1 Univers mg capsule 2-21 capsule by ity of 00:00: mouth [place] 00 twice a Medical day for Branch neuropathi c pain as directed by physician. LYRICA 150 2019-08 Yes [id number] Take 1 Univers mg capsule 2-21 capsule by ity of 00:00: mouth [place] 00 twice a Medical day for Branch neuropathi c pain as directed by physician. LYRICA 150 2019-08 Yes [id number] Take 1 Univers mg capsule 2-21 capsule by ity of 00:00: mouth [place] 00 twice a Medical day for Branch neuropathi c pain as directed by physician. LYRICA 150 2019-08 Yes [id number] Take 1 Univers mg capsule 2-21 capsule by ity of 00:00: mouth [place] 00 twice a Medical day for Branch neuropathi c pain as directed by physician. LYRICA 150 2019-08 Yes [id number] Take 1 Univers mg capsule 2-21 capsule by ity of 00:00: mouth [place] 00 twice a Medical day for Branch neuropathi c pain as directed by physician. LYRICA 150 2019- Yes [id number] Take 1 Univers mg capsule 2-21 capsule by ity of 00:00: mouth [place] 00 twice a Medical day for Branch neuropathi c pain as directed by physician. LYRICA 150 2019- Yes [id number] Take 1 Univers mg capsule 2-21 capsule [...] 58 :00 times Medical daily. Branch aripiprazol 0 [...] 00 :00 times Medical daily. Branch ofloxacin Yes [id number] 5[drp] Place 5 Univers 0.3 % otic 05-17 [id number] Drops in ity of drops 00:00: both ears [place] 00 3 (three) Medical times Branch daily. ofloxacin 2019-0 Yes [id number] 5[drp] Place 5 Univers 0.3 % otic 9-17 [id number] Drops in ity of drops 00:00: both ears [place] 00 3 (three) Medical times Branch daily. ofloxacin 2020-0 Yes [id number] 5[drp] Place 5 Univers 0.3 % otic 9-17 [id number] Drops in ity of drops 00:00: both ears [place] 00 3 (three) Medical times Branch daily. ofloxacin 2020-0 Yes [id number] 5[drp] Place 5 Univers 0.3 % otic 9-17 [id number] Drops in ity of drops 00:00: both ears [place] 00 3 (three) Medical times Branch daily. ofloxacin 2020-0 Yes [id number] 5[drp] Place 5 Univers 0.3 % otic 9-17 [id number] Drops in ity of drops 00:00: both ears [place] 00 3 (three) Medical times Branch daily. ofloxacin 2020-0 Yes [id number] 5[drp] Place 5 Univers 0.3 % otic 9-17 [id number] Drops in ity of drops 00:00: both ears [place] 00 3 (three) Medical times Branch daily. ofloxacin 2020-0 Yes [id number] 5[drp] Place 5 Univers 0.3 % otic 9-17 [id number] Drops in ity of drops 00:00: both ears [place] 00 3 (three) Medical times Branch daily. ofloxacin 2020-0 Yes [id number] 5[drp] Place 5 Univers 0.3 % otic 9-17 [id number] Drops in ity of drops 00:00: both ears [place] 00 3 (three) Medical times Branch daily. ofloxacin 2020-0 Yes [id number] 5[drp] Place 5 Univers 0.3 % otic 9-17 [id number] Drops in ity of drops 00:00: both ears [place] 00 3 (three) Medical times Branch daily. ofloxacin 2020-0 Yes [id number] 5[drp] Place 5 Univers 0.3 % otic 9-17 [id number] Drops in ity of drops 00:00: both ears [place] 00 3 (three) Medical times Branch daily. ofloxacin 2020-0 Yes [id number] 5[drp] Place 5 Univers 0.3 % otic 9-17 [id number] Drops in ity of drops 00:00: both ears [place] 00 3 (three) Medical times Branch daily. ofloxacin 2020-0 Yes [id number] 5[drp] Place 5 Univers 0.3 % otic 9-17 [id number] Drops in ity of drops 00:00: both ears [place] 00 3 (three) Medical times Branch daily. ofloxacin 2020-0 Yes [id number] 5[drp] Place 5 Univers 0.3 % otic 9-17 [id number] Drops in ity of drops 00:00: both ears [place] 00 3 (three) Medical times Branch daily. ofloxacin 2020-0 Yes [id number] 5[drp] Place 5 Univers 0.3 % otic 9-17 [id number] Drops in ity of drops 00:00: both ears [place] 00 3 (three) Medical times Branch daily. ofloxacin 2020-0 Yes [id number] 5[drp] Place 5 [facility] 0.3 % otic 9-17 [id number] Drops in ity of drops 00:00: both [...] 1{tbl} Take 1 [facility] en-codeine 9-17 -25 tablet by ity of (TYLENOL-CO 00:00: 04:59 [place] DE[place] #3[place] 00 :00 every 4 Medical 300-30 mg (four) Branch tablet hours as needed for Pain (scale 7-10) for up to 7 days. Indication s: acute pain acetaminoph 2020-2019- No [id number] 1{tbl} Take 1 [facility] en-codeine 9-17 09-25 tablet by ity of (TYLENOL-CO 00:00: 04:59 [place] DEINE #3[place] 00 :00 every 4 Medical 300-30 mg (four) Branch tablet hours as needed for Pain (scale 7-10) for up to 7 days. Indication s: acute pain metoprolol 2020-0 Yes [id number] 50mg Take 1 [facility] nneka succinate 7-09 tablet by ity o f XL 50 mg 24 00:00: mouth [place] hr tablet 00 daily. Medical Branch hydroCHLORO 2020-0 Yes [id number] 25mg Take 1 [facility] thiazide 25 7-09 tablet by ity of mg tablet 00:00: mouth [place] 00 daily. Medical [facility] baclofen 10 2020-0 Yes [id number] 10mg Take 1 [facility] mg tablet 7- [id number] tablet by ity of 00:00: mouth 3 [place] 00 (three) Medical times Branch daily as needed for Pain (scale 4-6). metoprolol 2020-0 Yes [id number] 50mg Take 1 [facility] nne[facility] succinate 7-09 tablet by ity o f XL 50 mg 24 00:00: mouth [place] hr tablet 00 daily. [facility] hydroCHLORO 2020-0 Yes [id number] 25mg Take 1 [facility] thiazide 25 7-09 tablet by it[facility] of mg tablet 00:00: mouth [place] 00 daily. [facility] baclofen 10 2020-0 Yes [id number] 10mg Take 1 [facility] mg tablet 03-08 [id number] tablet by ity of 00:00: mouth 3 [place] 00 (three) Medical times Branch daily as needed for Pain (scale 4-6). metoprolol 2020-0 Yes [id number] 50mg Take 1 [facility] nneka succinate 7-09 tablet by ity o f XL 50 mg 24 00:00: mouth [place] hr tablet 00 daily. [facility] hydroCHLORO 2020-0 Yes [id number] 25mg Take 1 [facility] thiazide 25 7-09 tablet by ity of mg tablet 00:00: mouth [place] 00 daily. [facility] baclofen 10 2020-0 Yes [id number] 10mg Take 1 [facility] mg tablet 7- [id number] tablet by ity of 00:00: mouth 3 [place] 00 (three) Medical times Branch daily as needed for Pain (scale 4-6). metoprolol 2020-0 Yes [id number] 50mg Take 1 [facility] nneka succinate 7-09 tablet by ity o f XL 50 mg 24 00:00: mouth [place] hr tablet 00 daily. [facility] hydroCHLORO 2020-0 Yes [id number] 25mg Take 1 [facility] thiazide 25 7-09 tablet by ity of mg tablet 00:00: mouth [place] 00 daily. [facility] baclofen 10 2020-0 Yes [id number] 10mg Take 1 [facility] mg tablet 7 [id number] tablet by ity of 00:00: mouth 3 [place] 00 (three) Medical times Branch daily as needed for Pain (scale 4-6). metoprolol 2020-0 Yes [id number] 50mg Take 1 [facility] nneka succinate 7-09 tablet by ity o f XL 50 mg 24 00:00: mouth [place] hr tablet 00 daily. [facility] hydroCHLORO 2020-0 Yes [id number] 25mg Take 1 [facility] thiazide 25 7-09 tablet by ity of mg tablet 00:00: mouth [place] 00 daily. [facility] baclofen 10 2020-0 Yes [id number] 10mg Take 1 [facility] mg tablet 03-08 [id number] tablet by ity of 00:00: mouth 3 [place] 00 (three) Medical times Branch daily as needed for Pain (scale 4-6). metoprolol 2020-0 Yes [id number] 50mg Take 1 [facility] nne[facility] succinate 7-09 tablet by ity o f XL 50 mg 24 00:00: mouth [place] hr tablet 00 daily. [facility] hydroCHLORO 2020-0 Yes [id number] 25mg Take 1 [facility] thiazide 25 7-09 tablet by ity of mg tablet 00:00: mouth [place] 00 daily. [facility] baclofen 10 2020-0 Yes [id number] 10mg Take 1 [facility] mg tablet 03-08 [id number] tablet by ity of 00:00: mouth 3 [place] 00 (three) Medical times Branch daily as needed for Pain (scale 4-6). metoprolol 2020-0 Yes [id number] 50mg Take 1 [facility] nne[facility] succinate 7-09 tablet by ity o f XL 50 mg 24 00:00: mouth [place] hr tablet 00 daily. [facility] hydroCHLORO 2020-0 Yes [id number] 25mg Take 1 [facility] thiazide 25 7-09 tablet by ity of mg tablet 00:00: mouth [place] 00 daily. [facility] baclofen 10 2020-0 Yes [id number] 10mg Take 1 [facility] mg tablet 7- [id number] tablet by ity of 00:00: mouth 3 [place] 00 (three) Medical times Branch daily as needed for Pain (scale 4-6). metoprolol 2020-0 Yes [id number] 50mg Take 1 [facility] n[facility] succinate 7-09 tablet by ity o f XL 50 mg 24 00:00: mouth [place] hr tablet 00 daily. [facility] hydroCHLORO 2020-0 Yes [id number] 25mg Take 1 [facility] thiazide 25 7-09 tablet by ity of mg tablet 00:00: mouth [place] 00 daily. [facility] baclofen 10 2020-0 Yes [id number] 10mg Take 1 [facility] mg tablet 03-08 [id number] tablet by ity of 00:00: mouth 3 [place] 00 (three) Medical times Branch daily as needed for Pain (scale 4-6). metoprolol 2020-0 Yes [id number] 50mg Take 1 [facility] nneka succinate 7-09 tablet by ity o f XL 50 mg 24 00:00: mouth [place] hr tablet 00 daily. [facility] hydroCHLORO 2020-0 Yes [id number] 25mg Take 1 [facility] thiazide 25 7-09 tablet by ity of mg tablet 00:00: mouth [place] 00 daily. [facility] baclofen 10 2019-0 Yes [id number] 10mg Take 1 [facility] mg tablet 03-08 [id number] tablet by ity of 00:00: mouth 3 [place] 00 (three) Medical times Branch daily as needed for Pain (scale 4-6). metoprolol 2020-0 Yes [id number] 50mg Take 1 [facility] nneka succinate 7-09 tablet by ity o f XL 50 mg 24 00:00: mouth [place] hr tablet 00 daily. [facility] hydroCHLORO 2020-0 Yes [id number] 25mg Take 1 [facility] thiazide 25 7-09 tablet by ity of mg tablet 00:00: mouth [place] 00 daily. [facility] baclofen 10 2019-0 Yes [id number] 10mg Take 1 [facility] mg tablet 03-08 [id number] tablet by ity of 00:00: mouth 3 [place] 00 (three) Medical times Branch daily as needed for Pain (scale 4-6). metoprolol 2020-0 Yes [id number] 50mg Take 1 [facility] nne[facility] succinate 7-09 tablet by ity o f XL 50 mg 24 00:00: mouth [place] hr tablet 00 daily. [facility] hydroCHLORO 2020-0 Yes [id number] 25mg Take 1 [facility] thiazide 25 7-09 tablet by ity of mg tablet 00:00: mouth [place] 00 daily. [facility] baclofen 10 2019-0 Yes [id number] 10mg Take 1 [facility] mg tablet 03-08 [id number] tablet by ity of 00:00: mouth 3 [place] 00 (three) Medical times Branch daily as needed for Pain (scale 4-6). metoprolol 2020-0 Yes [id number] 50mg Take 1 [facility] nne[facility] succinate 7-09 tablet by ity o f XL 50 mg 24 00:00: mouth [place] hr tablet 00 daily. [facility] hydroCHLORO 2020-0 Yes [id number] 25mg Take 1 [facility] thiazide 25 7-09 tablet by ity of mg tablet 00:00: mouth [place] 00 daily. [facility] baclofen 10 2020-0 Yes [id number] 10mg Take 1 [facility] mg tablet 7- [id number] tablet by ity of 00:00: mouth 3 [place] 00 (three) Medical times Branch daily as needed for Pain (scale 4-6). metoprolol 2020-0 Yes [id number] 50mg Take 1 [facility] nne[facility] succinate 7-09 tablet by ity o f XL 50 mg 24 00:00: mouth [place] hr tablet 00 daily. [facility] hydroCHLORO 2020-0 Yes [id number] 25mg Take 1 [facility] thiazide 25 7-09 tablet by ity of mg tablet 00:00: mouth [place] 00 daily. [facility] baclofen 10 2020-0 Yes [id number] 10mg Take 1 [facility] mg tablet 03-08 [id number] tablet by ity of 00:00: mouth 3 [place] 00 (three) Medical times Branch daily as needed for Pain (scale 4-6). metoprolol 2020-0 Yes [id number] 50mg Take 1 [facility] nneka succinate 7-09 tablet by ity o f XL 50 mg 24 00:00: mouth [place] hr tablet 00 daily. [facility] hydroCHLORO 2020-0 Yes [id number] 25mg Take 1 [facility] thiazide 25 7-09 tablet by ity of mg tablet 00:00: mouth [place] 00 daily. [facility] baclofen 10 2020-0 Yes [id number] 10mg Take 1 [facility] mg tablet - [id number] tablet by ity of 00:00: mouth 3 [place] 00 (three) Medical times Branch daily as needed for Pain (scale 4-6). metoprolol 2020-0 Yes [id number] 50mg Take 1 [facility] nne[facility] succinate 7-09 tablet by ity o f XL 50 mg 24 00:00: mouth [place] hr tablet 00 daily. [facility] hydroCHLORO 2020-0 Yes [id number] 25mg Take 1 [facility] thiazide 25 7-09 tablet by ity of mg tablet 00:00: mouth [place] 00 daily. [facility] baclofen 10 2020-0 Yes [id number] 10mg Take 1 [facility] mg tablet 03-08 [id number] tablet by ity of 00:00: mouth 3 [place] 00 (three) Medical times Branch daily as needed for Pain (scale 4-6). metoprolol 2020-0 Yes [id number] 50mg Take 1 [facility] nneka succinate 7-09 tablet by ity o f XL 50 mg 24 00:00: mouth [place] hr tablet 00 daily. [facility] hydroCHLORO 2020-0 Yes [id number] 25mg Take 1 [facility] thiazide 25 7-09 tablet by ity of mg tablet 00:00: mouth [place] 00 daily. [facility] baclofen 10 2020-0 Yes [id number] 10mg Take 1 [facility] mg tablet 03-08 [id number] tablet by ity of 00:00: mouth 3 [place] 00 (three) Medical times Branch daily as needed for Pain (scale 4-6). metoprolol 2020-0 Yes [id number] 50mg Take 1 [facility] nne[facility] succinate 7-09 tablet by ity o f XL 50 mg 24 00:00: mouth [place] hr tablet 00 daily. [facility] hydroCHLORO 2020-0 Yes [id number] 25mg Take 1 [facility] thiazide 25 7-09 tablet by ity of mg tablet 00:00: mouth [place] 00 daily. [facility] baclofen 10 2019-0 Yes [id number] 10mg Take 1 [facility] mg tablet 03-08 [id number] tablet by ity of 00:00: mouth 3 [place] 00 (three) Medical times Branch daily as needed for Pain (scale 4-6). metoprolol 2020-0 Yes [id number] 50mg Take 1 [facility] nneka succinate 7-09 tablet by ity o f XL 50 mg 24 00:00: mouth [place] hr tablet 00 daily. [facility] hydroCHLORO 2020-0 Yes [id number] 25mg Take 1 [facility] thiazide 25 7-09 tablet by ity of mg tablet 00:00: mouth [place] 00 daily. [facility] baclofen 10 2020-0 Yes [id number] 10mg Take 1 [facility] mg tablet 03-08 [id number] tablet by ity of 00:00: mouth 3 [place] 00 (three) Medical times Branch daily as needed for Pain (scale 4-6). metoprolol 2020-0 Yes [id number] 50mg Take 1 [facility] nne[facility] succinate 7-09 tablet by ity o f XL 50 mg 24 00:00: mouth [place] hr tablet 00 daily. [facility] hydroCHLORO 2020-0 Yes [id number] 25mg Take 1 [facility] thiazide 25 7-09 tablet by ity of mg tablet 00:00: mouth [place] 00 daily. [facility] baclofen 10 2020-0 Yes [id number] 10mg Take 1 [facility] mg tablet 03-08 [id number] tablet by ity of 00:00: mouth 3 [place] 00 (three) Medical times Branch daily as needed for Pain (scale 4-6). metoprolol 2020-0 Yes [id number] 50mg Take 1 [facility] nne[facility] succinate 7-09 tablet by ity o f XL 50 mg 24 00:00: mouth [place] hr tablet 00 daily. [facility] hydroCHLORO 2020-0 Yes [id number] 25mg Take 1 [facility] thiazide 25 7-09 tablet by ity of mg tablet 00:00: mouth [place] 00 daily. [facility] baclofen 10 2019-0 Yes [id number] 10mg Take 1 [facility] mg tablet 03-08 [id number] tablet by ity of 00:00: mouth 3 [place] 00 (three) Medical times Branch daily as needed for Pain (scale 4-6). metoprolol 2020-0 Yes [id number] 50mg Take 1 [facility] nne[facility] succinate 7-09 tablet by ity o f XL 50 mg 24 00:00: mouth [place] hr tablet 00 daily. [facility] hydroCHLORO 2019-0 Yes [id number] 25mg Take 1 [facility] thiazide 25 7-09 tablet by ity of mg tablet 00:00: mouth [place] 00 daily. [facility] baclofen 10 2019-0 Yes [id number] 10mg Take 1 [facility] mg tablet 03-08 [id number] tablet by ity of 00:00: mouth 3 [place] 00 (three) Medical times Branch daily as needed for Pain (scale 4-6). metoprolol 2020-0 Yes [id number] 50mg Take 1 [facility] nne[facility] succinate 7-09 tablet by ity o f XL 50 mg 24 00:00: mouth [place] hr tablet 00 daily. [facility] hydroCHLORO 2020-0 Yes [id number] 25mg Take 1 [facility] thiazide 25 7-09 tablet by ity of mg tablet 00:00: mouth [place] 00 daily. [facility] baclofen 10 2019-0 Yes [id number] 10mg Take 1 [facility] mg tablet 7- [id number] tablet by ity of 00:00: mouth 3 [place] 00 (three) Medical times Branch daily as needed for Pain (scale 4-6). metoprolol 2020-0 Yes [id number] 50mg Take 1 [facility] n[facility] succinate 7-09 tablet by ity o f XL 50 mg 24 00:00: mouth [place] hr tablet 00 daily. [facility] hydroCHLORO 2020-0 Yes [id number] 25mg Take 1 [facility] thiazide 25 7-09 tablet by ity of mg tablet 00:00: mouth [place] 00 daily. [facility] baclofen 10 2020-0 Yes [id number] 10mg Take 1 [facility] mg tablet 7- [id number] tablet by ity of 00:00: mouth 3 [place] 00 (three) Medical times Branch daily as needed for Pain (scale 4-6). metoprolol 2020-0 Yes [id number] 50mg Take 1 [facility] nneka succinate 7-09 tablet by ity o f XL 50 mg 24 00:00: mouth [place] hr tablet 00 daily. [facility] hydroCHLORO 2020-0 Yes [id number] 25mg Take 1 [facility] thiazide 25 7-09 tablet by ity of mg tablet 00:00: mouth [place] 00 daily. [facility] baclofen 10 2020-0 Yes [id number] 10mg Take 1 [facility] mg tablet 03-08 [id number] tablet by ity of 00:00: mouth 3 [place] 00 (three) Medical times Branch daily as needed for Pain (scale 4-6). metoprolol 2020-0 Yes [id number] 50mg Take 1 [facility] nne[facility] succinate 7-09 tablet by ity o f XL 50 mg 24 00:00: mouth [place] hr tablet 00 daily. [facility] hydroCHLORO 2020-0 Yes [id number] 25mg Take 1 [facility] thiazide 25 7-09 tablet by ity of mg tablet 00:00: mouth [place] 00 daily. [facility] baclofen 10 2020-0 Yes [id number] 10mg Take 1 [facility] mg tablet 03-08 [id number] tablet by ity of 00:00: mouth 3 [place] 00 (three) Medical times Branch daily as needed for Pain (scale 4-6). DULOXETINE 2020-0 Yes 60mg Take 60 mg [facility] HCL 2-25 by mouth 3 ity of (CYMBALTA 14:58: (three) [place] ORAL) 32 times Medical daily. Branch VITAMIN B 2020-0 Yes Take by Un[facility] rs COMPLEX 2-25 mouth. ity of ORAL 14:58: [place] [address] Medical Branch traZODONE 2020-0 Yes 100mg Take 100 [facility] vers 100 mg 2-25 mg by ity of tablet 14:58: mouth at [place] [address] bedtime. Medical Branch benztropine 2020-0 Yes 1mg Take 1 mg [facility] nivers 1 mg tablet 2-25 by mouth ity of 14:58: daily. [place] [address] Medical Branch DULOXETINE 2020-0 Yes 60mg Take 60 mg [facility] HCL 2-25 by mouth 3 ity of (CYMBALTA 14:58: (three) [place] ORAL) 32 times Medical daily. Branch VITAMIN B 2020-0 Yes Take by Un[facility] rs COMPLEX 2-25 mouth. ity of ORAL 14:58: [place] [address] Medical Branch traZODONE 2020-0 Yes 100mg Take 100 [facility] vers 100 mg 2-25 mg by ity of tablet 14:58: mouth at [place] [address] bedtime. Medical Branch benztropine 2020-0 Yes 1mg Take 1 mg [facility] nivers 1 mg tablet 2-25 by mouth ity of 14:58: daily. [place] [address] Medical Branch DULOXETINE 2020-0 Yes 60mg Take 60 mg [facility] HCL 2-25 by mouth 3 ity of (CYMBALTA 14:58: (three) [place] ORAL) 32 times Medical daily. Branch VITAMIN B 2020-0 Yes Take by Un[facility] rs COMPLEX 2-25 mouth. ity of ORAL 14:58: [place] [address] Medical Branch traZODONE 2020-0 Yes 100mg Take 100 [facility] vers 100 mg 2-25 mg by ity of tablet 14:58: mouth at [place] [address] bedtime. Medical Branch benztropine 2020-0 Yes 1mg Take 1 mg [facility] nivers 1 mg tablet 2-25 by mouth ity of 14:58: daily. [place] [address] Medical Branch DULOXETINE 2020-0 Yes 60mg Take 60 mg [facility] n[facility] HCL 2-25 by mouth 3 ity of (CYMBALTA 14:58: (three) [place] ORAL) 32 times Medical daily. Branch VITAMIN B 2020-0 Yes Take by Un[facility] rs COMPLEX 2-25 mouth. ity of ORAL 14:58: [place] [address] Medical Branch traZODONE 2020-0 Yes 100mg Take 100 [facility] vers 100 mg 2-25 mg by ity of tablet 14:58: mouth at [place] [address] bedtime. Medical Branch benztropine 2020-0 Yes 1mg Take 1 mg [facility] nivers 1 mg tablet 2-25 by mouth ity of 14:58: daily. [place] [address] Medical Branch DULOXETINE 2020-0 Yes 60mg Take 60 mg [facility] n[facility] HCL 2-25 by mouth 3 ity of (CYMBALTA 14:58: (three) [place] ORAL) 32 times Medical daily. Branch VITAMIN B 2020-0 Yes Take by Un[facility] rs COMPLEX 2-25 mouth. ity of ORAL 14:58: [place] [address] [facility] Branch traZODONE 2020-0 Yes 100mg Take 100 [facility] vers 100 mg 2-25 mg by ity of tablet 14:58: mouth at [place] [address] bedtime. Medical Branch benztropine 2020-0 Yes 1mg Take 1 mg [facility] nivers 1 mg tablet 2-25 by mouth ity of 14:58: daily. [place] [address] [facility] Branch DULOXETINE 2020-0 Yes 60mg Take 60 mg [facility] nivers HCL 2-25 by mouth 3 ity of (CYMBALTA 14:58: (three) [place] ORAL) 32 times Medical daily. Branch VITAMIN B 2020-0 Yes Take by Un[facility] rs COMPLEX 2-25 mouth. ity of ORAL 14:58: [place] [address] Medical Branch traZODONE 2020-0 Yes 100mg Take 100 [facility] vers 100 mg 2-25 mg by ity of tablet 14:58: mouth at [place] [address] bedtime. Medical Branch benztropine 2020-0 Yes 1mg Take 1 mg [facility] nivers 1 mg tablet 2-25 by mouth ity of 14:58: daily. [place] [address] [facility] Branch DULOXETINE 2020-0 Yes 60mg Take 60 mg [facility] nivers HCL 2-25 by mouth 3 ity of (CYMBALTA 14:58: (three) [place] ORAL) 32 times Medical daily. Branch VITAMIN B 2020-0 Yes Take by [facility] rs COMPLEX 2-25 mouth. ity of ORAL 14:58: [place] [address] [facility] Branch traZODONE 2020-0 Yes 100mg Take 100 [facility] vers 100 mg 2-25 mg by ity of tablet 14:58: mouth at [place] [address] bedtime. Medical Branch benztropine 2020-0 Yes 1mg Take 1 mg [facility]ivers 1 mg tablet 2-25 by mouth ity of 14:58: daily. [place] [address] [facility] Branch DULOXETINE 2020-0 Yes 60mg Take 60 mg [facility] nivers HCL 2-25 by mouth 3 ity of (CYMBALTA 14:58: (three) [place] ORAL) 32 times Medical daily. Branch VITAMIN B 2020-0 Yes Take by [facility] rs COMPLEX 2-25 mouth. ity of ORAL 14:58: [place] [address] [facility] Branch traZODONE 2020-0 Yes 100mg Take 100 [facility] vers 100 mg 2-25 mg by ity of tablet 14:58: mouth at [place] [address] bedtime. Medical Branch benztropine 2020-0 Yes 1mg Take 1 mg [facility] 1 mg tablet 2-25 by mouth ity of 14:58: daily. [place] [address] [facility] Branch DULOXETINE 2020-0 Yes 60mg Take 60 mg [facility] nivers HCL 2-25 by mouth 3 ity of (CYMBALTA 14:58: (three) [place] ORAL) 32 times Medical daily. Branch VITAMIN B 2020-0 Yes Take by [facility] rs COMPLEX 2-25 mouth. ity of ORAL 14:58: [place] [address] [facility] Branch traZODONE 2020-0 Yes 100mg Take 100 [facility] vers 100 mg 2-25 mg by ity of tablet 14:58: mouth at [place] [address] bedtime. Medical Branch benztropine 2020-0 Yes 1mg Take 1 mg [facility]ivers 1 mg tablet 2-25 by mouth ity of 14:58: daily. [place] [address] [facility] Branch DULOXETINE 2020-0 Yes 60mg Take 60 mg [facility] nivers HCL 2-25 by mouth 3 ity of (CYMBALTA 14:58: (three) [place] ORAL) 32 times Medical daily. Branch VITAMIN B 2020-0 Yes Take by [facility] rs COMPLEX 2-25 mouth. ity of ORAL 14:58: [place] [address] [facility] Branch traZODONE 2020-0 Yes 100mg Take 100 [facility] vers 100 mg 2-25 mg by ity of tablet 14:58: mouth at [place] [address] bedtime. Medical Branch benztropine 2020-0 Yes 1mg Take 1 mg [facility] nivers 1 mg tablet 2-25 by mouth ity of 14:58: daily. [place] [address] [facility] Branch DULOXETINE 2020-0 Yes 60mg Take [...] by ity of tablet 14:58: mouth at [place] [address] bedtime. Medical Branch benztropine 2020-0 Yes 1mg Take 1 mg [facility]ivers 1 mg tablet 2-25 by mouth ity of 14:58: daily. [place] [address] [facility] Branch DULOXETINE 2020-0 Yes 60mg Take 60 mg [facility] nivers HCL 2-25 by mouth 3 ity of (CYMBALTA 14:58: (three) [place] ORAL) 32 times Medical daily. Branch VITAMIN B 2020-0 Yes Take by [facility] rs COMPLEX 2-25 mouth. ity of ORAL 14:58: [place] [address] [facility] Branch traZODONE 2020-0 Yes 100mg Take 100 [facility] vers 100 mg 2-25 mg by ity of tablet 14:58: mouth at [place] [address] bedtime. Medical Branch benztropine 2020-0 Yes 1mg Take 1 mg [facility]ivers 1 mg tablet 2-25 by mouth ity of 14:58: daily. [place] [address] [facility] Branch DULOXETINE 2020-0 Yes 60mg Take 60 mg [facility] nivers HCL 2-25 by mouth 3 ity of (CYMBALTA 14:58: (three) [place] ORAL) 32 times Medical daily. Branch VITAMIN B 2020-0 Yes Take by [facility] rs COMPLEX 2-25 mouth. ity of ORAL 14:58: [place] [address] [facility] Branch traZODONE 2020-0 Yes 100mg Take 100 [facility] vers 100 mg 2-25 mg by ity of tablet 14:58: mouth at [place] [address] bedtime. Medical Branch benztropine 2020-0 Yes 1mg Take 1 mg [facility] nivers 1 mg tablet 2-25 by mouth ity of 14:58: daily. [place] [address] [facility] Branch DULOXETINE 2020-0 Yes 60mg Take 60 mg [facility] nivers HCL 2-25 by mouth 3 ity of (CYMBALTA 14:58: (three) [place] ORAL) 32 times Medical daily. Branch VITAMIN B 2020-0 Yes Take by [facility] rs COMPLEX 2-25 mouth. ity of ORAL 14:58: [place] [address] [facility] Branch traZODONE 2020-0 Yes 100mg Take 100 [facility] vers 100 mg 2-25 mg by ity of tablet 14:58: mouth at [place] [address] bedtime. Medical Branch benztropine 2020-0 Yes 1mg Take 1 mg [facility] nivers 1 mg tablet 2-25 by mouth ity of 14:58: daily. [place] [address] [facility] Branch DULOXETINE 2020-0 Yes 60mg Take 60 mg [facility] nivers HCL 2-25 by mouth 3 ity of (CYMBALTA 14:58: (three) [place] ORAL) 32 times Medical daily. Branch VITAMIN B 2020-0 Yes Take by [facility] rs COMPLEX 2-25 mouth. ity of ORAL 14:58: [place] [address] [facility] Branch traZODONE 2020-0 Yes 100mg Take 100 [facility] vers 100 mg 2-25 mg by ity of tablet 14:58: mouth at [place] [address] bedtime. Medical Branch benztropine 2020-0 Yes 1mg Take 1 mg [facility] nivers 1 mg tablet 2-25 by mouth ity of 14:58: daily. [place] [address] [facility] Branch DULOXETINE 2020-0 Yes 60mg Take 60 mg [facility] nivers HCL 2-25 by mouth 3 ity of (CYMBALTA 14:58: (three) [place] ORAL) 32 times Medical daily. Branch VITAMIN B 2020-0 Yes Take by [facility] rs COMPLEX 2-25 mouth. ity of ORAL 14:58: [place] [address] [facility] Branch traZODONE 2020-0 Yes 100mg Take 100 [facility] vers 100 mg 2-25 mg by ity of tablet 14:58: mouth at [place] [address] bedtime. Medical Branch benztropine 2020-0 Yes 1mg Take 1 mg [facility] nivers 1 mg tablet 2-25 by mouth ity of 14:58: daily. [place] [address] [facility] Branch DULOXETINE 2020-0 Yes 60mg Take 60 mg [facility] nivers HCL 2-25 by mouth 3 ity of (CYMBALTA 14:58: (three) [place] ORAL) 32 times Medical daily. Branch VITAMIN B 2020-0 Yes Take by [facility] rs COMPLEX 2-25 mouth. ity of ORAL 14:58: [place] [address] [facility] Branch traZODONE 2020-0 Yes 100mg Take 100 [facility] vers 100 mg 2-25 mg by ity of tablet 14:58: mouth at [place] [address] bedtime. Medical Branch benztropine 2020-0 Yes 1mg Take 1 mg [facility] nivers 1 mg tablet 2-25 by mouth ity of 14:58: daily. [place] [address] Medical Branch VITAMIN B 2020-0 Yes Take by Un[facility] rs COMPLEX 2-25 mouth. ity of ORAL 14:58: [address] traZODONE 2020-0 Yes 100mg Take 100 [facility] vers 100 mg 2-25 mg by ity of tablet 14:58: mouth at [place] [address] bedtime. Medical Branch benztropine 2020-0 Yes 1mg Take 1 mg [facility] nivers 1 mg tablet 2-25 by mouth ity of 14:58: daily. [address] VITAMIN B 2020-0 Yes Take by Un[facility] rs COMPLEX 2-25 mouth. ity of ORAL 14:58: [address] traZODONE 2020-0 Yes 100mg Take 100 [facility] vers 100 mg 2-25 mg by ity of tablet 14:58: mouth at [place] [address] bedtime. Medical Branch benztropine 2020-0 Yes 1mg Take 1 mg [facility] nivers 1 mg tablet 2-25 by mouth ity of 14:58: daily. [address] VITAMIN B 2020-0 Yes Take by Un[facility] rs COMPLEX 2-25 mouth. ity of ORAL 14:58: [address] traZODONE 2020-0 Yes 100mg Take 100 [facility] vers 100 mg 2-25 mg by ity of tablet 14:58: mouth at [place] [address] bedtime. Medical Branch benztropine 2020-0 Yes 1mg Take 1 mg [facility] nivers 1 mg tablet 2-25 by mouth ity of 14:58: daily. [address] VITAMIN B 2020-0 Yes Take by Un[facility] rs COMPLEX 2-25 mouth. ity of ORAL 14:58: [address] traZODONE 2020-0 Yes 100mg Take 100 [facility] vers 100 mg 2-25 mg by ity of tablet 14:58: mouth at [place] [address] bedtime. Medical Branch benztropine 2020-0 Yes 1mg Take 1 mg [facility] nivers 1 mg tablet 2-25 by mouth ity of 14:58: daily. [address] VITAMIN B 2020-0 Yes Take by [facility] rs COMPLEX 2-25 mouth. ity of ORAL 14:58: [address] traZODONE 2020-0 Yes 100mg Take 100 [facility] vers 100 mg 2-25 mg by ity of tablet 14:58: mouth at [place] [address] bedtime. Medical Branch benztropine 2020-0 Yes 1mg Take 1 mg U nivers 1 mg tablet 2-25 by mouth ity of 14:58: daily. [place] 32 [facility] Branch VITAMIN B 2020-0 Yes Take by Un[facility] rs COMPLEX 2-25 mouth. ity of ORAL 14:58: [address] Branch traZODONE 2020-0 Yes 100mg Take 100 [facility] vers 100 mg 2-25 mg by ity of tablet 14:58: mouth at [place] [address] bedtime. Medical Branch benztropine 2020-0 Yes 1mg Take 1 mg [facility] nivers 1 mg tablet 2-25 by mouth ity of 14:58: daily. [address] VITAMIN B 2020-0 Yes Take by [facility] rs COMPLEX 2-25 mouth. ity of ORAL 14:58: [address] traZODONE 2020-0 Yes 100mg Take 100 [facility] vers 100 mg 2-25 mg by ity of tablet 14:58: mouth at [place] [address] bedtime. Medical Branch benztropine 2020-0 Yes 1mg Take 1 mg U nivers 1 mg tablet 2-25 by mouth ity of 14:58: daily. [address] VITAMIN B 2020-0 Yes Take by Un[facility] rs COMPLEX 2-25 mouth. ity of ORAL 14:58: [address] traZODONE 2020-0 Yes 100mg Take 100 [facility] vers 100 mg 2-25 mg by ity of tablet 14:58: mouth at [place] [address] bedtime. Medical Branch benztropine 2020-0 Yes 1mg Take 1 mg [facility] nivers 1 mg tablet 2-25 by mouth ity of 14:58: daily. [address] VITAMIN B 2020-0 Yes Take by Un[facility] rs COMPLEX 2-25 mouth. ity of ORAL 14:58: [address] traZODONE 2020-0 Yes 100mg Take 100 [facility] vers 100 mg 2-25 mg by ity of tablet 14:58: mouth at [place] [address] bedtime. Medical Branch benztropine 2020-0 Yes 1mg Take 1 mg U nivers 1 mg tablet 2-25 by mouth ity of 14:58: daily. [address] VITAMIN B 2020-0 Yes Take by Unive rs COMPLEX 2-25 mouth. ity of ORAL 14:58: [address] traZODONE 2020-0 Yes 100mg Take 100 Uni vers 100 mg 2-25 mg by ity of tablet 14:58: mouth at [place] [address] bedtime. [facility] Branch benztropine 2020-0 Yes 1mg Take 1 mg U nivers 1 mg tablet 2-25 by mouth ity of 14:58: daily. [address] VITAMIN B 2020-0 Yes Take by Unive rs COMPLEX 2-25 mouth. ity of ORAL 14:58: [address] traZODONE 2020-0 Yes 100mg Take 100 Uni vers 100 mg 2-25 mg by ity of tablet 14:58: mouth at [place] [address] bedtime. [facility] Branch benztropine 2020-0 Yes 1mg Take 1 mg U nivers 1 mg tablet 2-25 by mouth ity of 14:58: daily. [address] VITAMIN B 2020-0 Yes Take by Unive rs COMPLEX 2-25 mouth. ity of ORAL 14:58: [address] traZODONE 2020-0 Yes 100mg Take 100 Uni vers 100 mg 2-25 mg by ity of tablet 14:58: mouth at [place] [address] bedtime. [facility] Branch benztropine 2020-0 Yes 1mg Take 1 mg U nivers 1 mg tablet 2-25 by mouth ity of 14:58: daily. [address] VITAMIN B 2020-0 Yes Take by Unive rs COMPLEX 2-25 mouth. ity of ORAL 14:58: [address] traZODONE 2020-0 Yes 100mg Take 100 Uni vers 100 mg 2-25 mg by ity of tablet 14:58: mouth at [place] [address] bedtime. [facility] benztropine 2020-0 Yes 1mg Take 1 mg U nivers 1 mg tablet 2-25 by mouth ity of 14:58: daily. [address] VITAMIN B 2020-0 Yes Take by Unive rs COMPLEX 2-25 mouth. ity of ORAL 14:58: [address] traZODONE 2020-0 Yes 100mg Take 100 Uni vers 100 mg 2-25 mg by ity of tablet 14:58: mouth at [place] [address] bedtime. [facility] Branch benztropine 2020-0 Yes 1mg Take 1 mg U nivers 1 mg tablet 2-25 by mouth ity of 14:58: daily. [address] VITAMIN B 2020-0 Yes Take by Unive rs COMPLEX 2-25 mouth. ity of ORAL 14:58: [address] traZODONE 2020-0 Yes 100mg Take 100 Uni vers 100 mg 2-25 mg by ity of tablet 14:58: mouth at [place] [address] bedtime. [facility] Branch benztropine 2020-0 Yes 1mg Take 1 mg U nivers 1 mg tablet 2-25 by mouth ity of 14:58: daily. [place] 32 [facility] aripiprazol 2020-0 Yes 5mg [...] by mouth ity of 17:16: daily. [place] [facility] ARIPiprazol 2020-0 Yes 10mg Take [...] 2-24 by mouth ity of 17:16: daily. [place] 05 [facility] ARIPiprazol 2020-0 Yes 10mg Take 10 mg Univers e 10 mg 2-24 by mouth 2 ity of tablet 17:16: (two) [place] 05 times Medical daily. Branch DULOXETINE 2020-0 Yes 60mg Take 60 mg U nivers HCL 2-24 by mouth 3 ity of (CYMBALTA 17:15: (three) [place] ORAL) 45 times Medical daily. Branch VITAMIN B 2020-0 Yes Take by Unive rs COMPLEX 2-24 mouth. ity of ORAL 17:15: [place] 45 [facility] traZODONE 2020-0 Yes 100mg Take 100 Uni vers 100 mg 2-24 mg by ity of tablet 17:15: mouth at [place] [address] bedtime. [facility] DULOXETINE 2020-0 Yes 60mg Take 60 mg U nivers HCL 2-24 by mouth 3 ity of (CYMBALTA 17:15: (three) [place] ORAL) 45 times Medical daily. Branch VITAMIN B 2020-0 Yes Take by Unive rs COMPLEX 2-24 mouth. ity of ORAL 17:15: [place] 45 [facility] Branch traZODONE 2020-0 Yes 100mg Take 100 Uni vers 100 mg 2-24 mg by ity of tablet 17:15: mouth at [place] 45 bedtime. [facility] Branch DULOXETINE 2020-0 Yes 60mg Take 60 mg U nivers HCL 2-24 by mouth 3 ity of (CYMBALTA 17:15: (three) [place] ORAL) 45 times Medical daily. Branch VITAMIN B 2020-0 Yes Take by Unive rs COMPLEX 2-24 mouth. ity of ORAL 17:15: [place] 45 [facility] Branch traZODONE 2020-0 Yes 100mg Take 100 Uni vers 100 mg 2-24 mg by ity of tablet 17:15: mouth at [place] [address] bedtime. [facility] Branch OLANZapine 2020-0 2020- No 20mg Take 20 mg [facility] 20 mg 2-24 02-24 by mouth ity of tablet 17:15: 00:00 at [place] 35 :00 bedtime. [facility] Branch OLANZapine 2020-0 2020- No 20mg Take 20 mg [facility] 20 mg 2-24 02-24 by mouth ity of tablet 17:15: 00:00 at [place] 35 :00 bedtime. [facility] Branch OLANZapine 2020-0 2020- No 20mg Take 20 mg [facility] 20 mg -24 10-24 by mouth ity of tablet 17:15: 00:00 at [place] 35 :00 bedtime. Medical Branch OLANZapine 2019- No 10mg Take 10 [...] No 10mg Take 10 mg Univers (ZYPREXA) 10-24- by mouth 2 ity of 10 mg [...] 00:00 by mouth [place] 09 :00 daily. [facility] DULoxetine 2019- No Take 3 Univ ers 30 mg 2-24 -24 capsules ity of capsule 17:15: 00:00 by mouth [place] 09 :00 daily. [facility] metoprolol Yes [id number] 50mg Take 1 Un nneka succinate 2-24 tablet by ity o f XL 50 mg 24 00:00: mouth [place] hr tablet 00 daily. [facility] metoprolol Yes [id number] 50mg Take 1 Un nneka succinate 2-24 tablet by ity o f XL 50 mg 24 00:00: mouth [place] hr tablet 00 daily. [facility] metoprolol Yes [id number] 50mg Take 1 Un nneka succinate 2-24 tablet by ity o f XL 50 mg 24 00:00: mouth [place] hr tablet 00 daily. [facility] metoprolol Yes [id number] 50mg Take 1 Un nneka succinate 2-24 tablet by ity o f XL 50 mg 24 00:00: mouth [place] hr tablet 00 daily. Medical Branch metoprolol 2020-0 Yes [id number] 50mg Take 1 Un nneka succinate 2-24 tablet by ity o f XL 50 mg 24 00:00: mouth [place] hr tablet 00 daily. Medical Branch metoprolol 2020-0 Yes [id number] 50mg Take 1 Un nneka succinate 2-24 tablet by ity o f XL 50 mg 24 00:00: mouth [place] hr tablet 00 daily. [facility] Branch metoprolol 2020-0 Yes [id number] 50mg Take 1 Un nneka succinate 2-24 tablet by ity o f XL 50 mg 24 00:00: mouth [place] hr tablet 00 daily. Medical Branch metoprolol 2020-0 Yes [id number] 50mg Take 1 Un nneka succinate 2-24 tablet by ity o f XL 50 mg 24 00:00: mouth [place] hr tablet 00 daily. [facility] metoprolol 2019-0 Yes [id number] 50mg Take 1 Un nneka succinate 2-24 tablet by ity o f XL 50 mg 24 00:00: mouth [place] hr tablet 00 daily. Medical Branch metoprolol 2019-0 Yes [id number] 50mg Take 1 Un nneka succinate 2-24 tablet by ity o f XL 50 mg 24 00:00: mouth [place] hr tablet 00 daily. [facility] metoprolol 2019-0 2020- No [id number] 50mg Take 1 U nivers succinate 2-24 - tablet by ity of XL 50 mg 24 00:00: 00:00 [place] hr tablet 00 :00 daily. [facility] metoprolol 2020-0 2020- No [id number] 50mg Take 1 U nivers succinate 2-24 - tablet by ity of XL 50 mg 24 00:00: 00:00 [place] hr tablet 00 :00 daily. [facility] metoprolol 2020-0 2020- No [id number] 50mg Take 1 U nivers succinate 2-24 -09 tablet by ity of XL 50 mg 24 00:00: 00:00 mouth [place] hr tablet 00 :00 daily. [facility] metoprolol 2020-0 2020- No [id number] 50mg Take 1 U nivers succinate 2-24 -09 tablet by ity of XL 50 mg 24 00:00: 00:00 mouth [place] hr tablet 00 :00 daily. [facility] hydroCHLORO 2020-0 Yes [id number] 25mg Take 1 [facility] thiazide 25 1-30 tablet by ity of mg tablet 00:00: mouth [place] 00 daily. Medical Branch meloxicam 2020-0 Yes [id number] 15mg Take 1 U nivers 15 mg 1-30 tablet by ity of tablet 00:00: mouth [place] 00 daily. Medical Branch metoprolol 2020-0 Yes [id number] 25mg Take 1 Un nneka succinate 1-30 tablet by ity o f XL 25 mg 24 00:00: mouth [place] hr tablet 00 daily. Medical Branch pregabalin 2020-0 Yes [id number] 150mg Take 1 Univers (LYRICA) 1-30 capsule by ity o f 150 mg 00:00: mouth 2 [place] capsule 00 (two) Medical times Branch daily. hydroCHLORO 2020-0 Yes [id number] 25mg Take 1 [facility] thiazide 25 1-30 tablet by ity of mg tablet 00:00: mouth [place] 00 daily. Medical Branch meloxicam 2020-0 Yes [id number] 15mg Take 1 U nivers 15 mg 1-30 tablet by ity of tablet 00:00: mouth [place] 00 daily. Medical Branch metoprolol 2020-0 Yes [id number] 25mg Take 1 Un nneka succinate 1-30 tablet by ity o f XL 25 mg 24 00:00: mouth [place] hr tablet 00 daily. Medical Branch pregabalin 2020-0 Yes [id number] 150mg Take 1 Univers (LYRICA) 1-30 capsule by ity o f 150 mg 00:00: mouth 2 [place] capsule 00 (two) Medical times Branch daily. hydroCHLORO 2020-0 Yes [id number] 25mg Take 1 [facility] thiazide 25 1-30 tablet by ity of mg tablet 00:00: mouth [place] 00 daily. Medical Branch meloxicam 2020-0 Yes [id number] 15mg Take 1 U nivers 15 mg 1-30 tablet by ity of tablet 00:00: mouth [place] 00 daily. Medical Branch pregabalin 2020-0 Yes [id number] 150mg Take 1 Univers (LYRICA) 1-30 capsule by ity o f 150 mg 00:00: mouth 2 [place] capsule 00 (two) Medical times Branch daily. hydroCHLORO 2020-0 Yes [id number] 25mg Take 1 [facility] thiazide 25 1-30 tablet by ity of mg tablet 00:00: mouth [place] 00 daily. Medical Branch meloxicam 2020-0 Yes [id number] 15mg Take 1 U nivers 15 mg 1-30 tablet by ity of tablet 00:00: mouth [place] 00 daily. Medical Branch pregabalin 2020-0 Yes [id number] 150mg Take 1 Univers (LYRICA) 1-30 capsule by ity o f 150 mg 00:00: mouth 2 [place] capsule 00 (two) Medical times [place] daily. hydroCHLORO 2020-0 Yes [id number] 25mg Take 1 [facility] thiazide 25 1-30 tablet by ity of mg tablet 00:00: mouth [place] 00 daily. Medical Branch meloxicam 2020-0 Yes [id number] 15mg Take 1 U nivers 15 mg 1-30 tablet by ity of tablet 00:00: mouth [place] 00 daily. Medical Branch pregabalin 2020-0 Yes [id number] 150mg Take 1 Univers (LYRICA) 1-30 capsule by ity o f 150 mg 00:00: mouth 2 [place] capsule 00 (two) Medical times [place] daily. hydroCHLORO 2020-0 Yes [id number] 25mg Take 1 [facility] thiazide 25 1-30 tablet by ity of mg tablet 00:00: mouth [place] 00 daily. Medical Branch meloxicam 2020-0 Yes [id number] 15mg Take 1 U nivers 15 mg 1-30 tablet by ity of tablet 00:00: mouth [place] 00 daily. Medical Branch pregabalin 2020-0 Yes [id number] 150mg Take 1 Univers (LYRICA) 1-30 capsule by ity o f 150 mg 00:00: mouth 2 [place] capsule 00 (two) Medical times [place] daily. hydroCHLORO 2020-0 Yes [id number] 25mg Take 1 [facility] thiazide 25 1-30 tablet by ity of mg tablet 00:00: mouth [place] 00 daily. Medical Branch meloxicam 2020-0 Yes [id number] 15mg Take 1 U nivers 15 mg 1-30 tablet by ity of tablet 00:00: mouth [place] 00 daily. Medical Branch pregabalin 2020-0 Yes [id number] 150mg Take 1 Univers (LYRICA) 1-30 capsule by ity o f 150 mg 00:00: mouth 2 [place] capsule 00 (two) Medical times [place] daily. hydroCHLORO 2020-0 Yes [id number] 25mg Take 1 [facility] thiazide 25 1-30 tablet by ity of mg tablet 00:00: mouth [place] 00 daily. Medical Branch meloxicam 2020-0 Yes [id number] 15mg Take 1 U nivers 15 mg 1-30 tablet by ity of tablet 00:00: mouth [place] 00 daily. Medical Branch pregabalin 2020-0 Yes [id number] 150mg Take 1 Univers (LYRICA) 1-30 capsule by ity o f 150 mg 00:00: mouth 2 [place] capsule 00 (two) Medical times [place] daily. hydroCHLORO 2020-0 Yes [id number] 25mg Take 1 [facility] thiazide 25 1-30 tablet by ity of mg tablet 00:00: mouth [place] 00 daily. Medical Branch meloxicam 2020-0 Yes [id number] 15mg Take 1 U nivers 15 mg 1-30 tablet by ity of tablet 00:00: mouth [place] 00 daily. Medical Branch pregabalin 2020-0 Yes [id number] 150mg Take 1 Univers (LYRICA) 1-30 capsule by ity o f 150 mg 00:00: mouth 2 [place] capsule 00 (two) Medical times [place] daily. hydroCHLORO 2020-0 Yes [id number] 25mg Take 1 [facility] thiazide 25 1-30 tablet by ity of mg tablet 00:00: mouth [place] 00 daily. Medical Branch meloxicam 2020-0 Yes [id number] 15mg Take 1 U nivers 15 mg 1-30 tablet by ity of tablet 00:00: mouth [place] 00 daily. Medical Branch pregabalin 2020-0 Yes [id number] 150mg Take 1 Univers (LYRICA) 1-30 capsule by ity o f 150 mg 00:00: mouth 2 [place] capsule 00 (two) Medical times Branch daily. hydroCHLORO 2020-0 Yes [id number] 25mg Take 1 [facility] thiazide 25 1-30 tablet by ity of mg tablet 00:00: mouth [place] 00 daily. Medical Branch meloxicam 2020-0 Yes [id number] 15mg Take 1 U nivers 15 mg 1-30 tablet by ity of tablet 00:00: mouth [place] 00 daily. Medical Branch pregabalin 2020-0 Yes [id number] 150mg Take 1 Univers (LYRICA) 1-30 capsule by ity o f 150 mg 00:00: mouth 2 [place] capsule 00 (two) Medical times [place] daily. hydroCHLORO 2020-0 Yes [id number] 25mg Take 1 Univers thiazide 25 1-30 tablet by ity of mg tablet 00:00: mouth [place] 00 daily. Medical Branch meloxicam 2020-0 Yes [id number] 15mg Take 1 U nivers 15 mg 1-30 tablet by ity of tablet 00:00: mouth [place] 00 daily. Medical Branch pregabalin 2020-0 Yes [id number] 150mg Take 1 Univers (LYRICA) 1-30 capsule by ity o f 150 mg 00:00: mouth 2 [place] capsule 00 (two) Medical times Branch daily. meloxicam 2020-0 Yes [id number] 15mg Take 1 U nivers 15 mg 1-30 tablet by ity of tablet 00:00: mouth [place] 00 daily. Medical Branch pregabalin 2020-0 Yes [id number] 150mg Take 1 Univers (LYRICA) 1-30 capsule by ity o f 150 mg 00:00: mouth 2 [place] capsule 00 (two) Medical times Branch daily. meloxicam 2020-0 Yes [id number] 15mg Take 1 U nivers 15 mg 1-30 tablet by ity of tablet 00:00: mouth [place] 00 daily. Medical Branch pregabalin 2020-0 Yes [id number] 150mg Take 1 Univers (LYRICA) 1-30 capsule by ity o f 150 mg 00:00: mouth 2 [place] capsule 00 (two) Medical times Branch daily. meloxicam 2020-0 Yes [id number] 15mg Take 1 U nivers 15 mg 1-30 tablet by ity of tablet 00:00: mouth [place] 00 daily. Medical Branch pregabalin 2020-0 Yes [id number] 150mg Take 1 Univers (LYRICA) 1-30 capsule by ity o f 150 mg 00:00: mouth 2 [place] capsule 00 (two) Medical times Branch daily. meloxicam 2020-0 Yes [id number] 15mg Take 1 U nivers 15 mg 1-30 tablet by ity of tablet 00:00: mouth [place] 00 daily. Medical Branch pregabalin 2020-0 Yes [id number] 150mg Take 1 Univers (LYRICA) 1-30 capsule by ity o f 150 mg 00:00: mouth 2 [place] capsule 00 (two) Medical times Branch daily. meloxicam 2020-0 Yes [id number] 15mg Take 1 U nivers 15 mg 1-30 tablet by ity of tablet 00:00: mouth [place] 00 daily. Medical Branch pregabalin 2020-0 Yes [id number] 150mg Take 1 Univers (LYRICA) 1-30 capsule by ity o f 150 mg 00:00: mouth 2 [place] capsule 00 (two) Medical times Branch daily. meloxicam 2020-0 Yes [id number] 15mg Take 1 U nivers 15 mg 1-30 tablet by ity of tablet 00:00: mouth [place] 00 daily. Medical Branch pregabalin 2020-0 Yes [id number] 150mg Take 1 Univers (LYRICA) 1-30 capsule by ity o f 150 mg 00:00: mouth 2 [place] capsule 00 (two) Medical times Branch daily. meloxicam 2020-0 Yes [id number] 15mg Take 1 U nivers 15 mg 1-30 tablet by ity of tablet 00:00: mouth [place] 00 daily. Medical Branch pregabalin 2020-0 Yes [id number] 150mg Take 1 Univers (LYRICA) 1-30 capsule by ity o f 150 mg 00:00: mouth 2 [place] capsule 00 (two) Medical times Branch daily. meloxicam 2020-0 Yes [id number] 15mg Take 1 U nivers 15 mg 1-30 tablet by ity of tablet 00:00: mouth [place] 00 daily. Medical Branch pregabalin 2020-0 Yes [id number] 150mg Take 1 Univers (LYRICA) 1-30 capsule by ity o f 150 mg 00:00: mouth 2 [place] capsule 00 (two) Medical times Branch daily. meloxicam 2020-0 Yes [id number] 15mg Take 1 U nivers 15 mg 1-30 tablet by ity of tablet 00:00: mouth [place] 00 daily. Medical Branch pregabalin 2020-0 Yes [id number] 150mg Take 1 Univers (LYRICA) 1-30 capsule by ity o f 150 mg 00:00: mouth 2 [place] capsule 00 (two) Medical times Branch daily. meloxicam 2020-0 Yes [id number] 15mg Take 1 U nivers 15 mg 1-30 tablet by ity of tablet 00:00: mouth [place] 00 daily. Medical Branch pregabalin 2020-0 Yes [id number] 150mg Take 1 Univers (LYRICA) 1-30 capsule by ity o f 150 mg 00:00: mouth 2 [place] capsule 00 (two) Medical times Branch daily. meloxicam 2020-0 Yes [id number] 15mg Take 1 U nivers 15 mg 1-30 tablet by ity of tablet 00:00: mouth [place] 00 daily. Medical Branch pregabalin 2020-0 Yes [id number] 150mg Take 1 Univers (LYRICA) 1-30 capsule by ity o f 150 mg 00:00: mouth 2 [place] capsule 00 (two) Medical times Branch daily. meloxicam 2020-0 Yes [id number] 15mg Take 1 U nivers 15 mg 1-30 tablet by ity of tablet 00:00: mouth [place] 00 daily. Medical Branch pregabalin 2020-0 Yes [id number] 150mg Take 1 Univers (LYRICA) 1-30 capsule by ity o f 150 mg 00:00: mouth 2 [place] capsule 00 (two) Medical times Branch daily. meloxicam 2020-0 Yes [id number] 15mg Take 1 U nivers 15 mg 1-30 tablet by ity of tablet 00:00: mouth [place] 00 daily. Medical Branch pregabalin 2020-0 Yes [id number] 150mg Take 1 Univers (LYRICA) 1-30 capsule by ity o f 150 mg 00:00: mouth 2 [place] capsule 00 (two) Medical times Branch daily. meloxicam 2020-0 Yes [id number] 15mg Take 1 U nivers 15 mg 1-30 tablet by ity of tablet 00:00: mouth [place] 00 daily. Medical Branch pregabalin 2020-0 Yes [id number] 150mg Take 1 Univers (LYRICA) 1-30 capsule by ity o f 150 mg 00:00: mouth 2 [place] capsule 00 (two) Medical times Branch daily. meloxicam 2020-0 Yes [id number] 15mg Take 1 U nivers 15 mg 1-30 tablet by ity of tablet 00:00: mouth [place] 00 daily. Medical Branch pregabalin 2020-0 Yes [id number] 150mg Take 1 Univers (LYRICA) 1-30 capsule by ity o f 150 mg 00:00: mouth 2 [place] capsule 00 (two) Medical times Branch daily. meloxicam 2020-0 Yes [id number] 15mg Take 1 U nivers 15 mg 1-30 tablet by ity of tablet 00:00: mouth [place] 00 daily. Medical Branch pregabalin 2020-0 Yes [id number] 150mg Take 1 Univers (LYRICA) 1-30 capsule by ity o f 150 mg 00:00: mouth 2 [place] capsule 00 (two) Medical times Branch daily. meloxicam 2020-0 Yes [id number] 15mg Take 1 U nivers 15 mg 1-30 tablet by ity of tablet 00:00: mouth [place] 00 daily. Medical Branch pregabalin 2020-0 Yes [id number] 150mg Take 1 Univers (LYRICA) 1-30 capsule by ity o f 150 mg 00:00: mouth 2 [place] capsule 00 (two) Medical times Branch daily. meloxicam 2020-0 Yes [id number] 15mg Take 1 U nivers 15 mg 1-30 tablet by ity of tablet 00:00: mouth [place] 00 daily. Medical Branch meloxicam 2020-0 Yes [id number] 15mg Take 1 U nivers 15 mg 1-30 tablet by ity of tablet 00:00: mouth [place] 00 daily. [facility] Branch meloxicam 2020-0 Yes [id number] 15mg Take 1 U nivers 15 mg 1-30 tablet by ity of tablet 00:00: mouth [place] 00 daily. Medical Branch meloxicam 2020-0 Yes [id number] 15mg Take 1 U nivers 15 mg 1-30 tablet by ity of tablet 00:00: mouth [place] 00 daily. [facility] Branch meloxicam 2020-0 Yes [id number] 15mg Take 1 U nivers 15 mg 1-30 tablet by ity of tablet 00:00: mouth [place] 00 daily. Medical Branch meloxicam 2020-0 Yes [id number] 15mg Take 1 U nivers 15 mg 1-30 tablet by ity of tablet 00:00: mouth [place] 00 daily. Medical Branch meloxicam 2020-0 Yes [id number] 15mg Take 1 U nivers 15 mg 1-30 tablet by ity of tablet 00:00: mouth [place] 00 daily. [facility] meloxicam 2020-0 Yes [id number] 15mg Take 1 U nivers 15 mg 1-30 tablet by ity of tablet 00:00: mouth [place] 00 daily. Medical Branch pregabalin 2020-0 2020- No [id number] 150mg Take 1 Univers (LYRICA) 1-30 12-21 capsule by ity of 150 mg 00:00: 00:00 mouth 2 [place] capsule 00 :00 (two) Medical times Branch daily. hydroCHLORO 2019-0 2019- No [id number] 25mg Take 1 [facility] thiazide 25 -30 -09 tablet by it y of mg tablet 00:00: 00:00 mouth [place] 00 :00 daily. Medical Branch hydroCHLORO 2019- No [id number] 25mg Take 1 [facility] thiazide 25 -30 -09 tablet by it y of mg tablet 00:00: 00:00 mouth [place] 00 :00 daily. Medical Branch hydroCHLORO 2019-2019- No [id number] 25mg Take 1 [facility] thiazide 25 30 -09 tablet by it y of mg tablet 00:00: 00:00 mouth [place] 00 :00 daily. Medical Branch hydroCHLORO 2019-2019- No [id number] 25mg Take 1 [facility] thiazide 25 30 -09 tablet by it y of mg tablet 00:00: 00:00 mouth [place] 00 :00 daily. Medical Branch metoprolol 2019- 2020- No [id number] 25mg Take 1 U nivers succinate 1-30 02-24 tablet by ity of XL 25 mg 24 00:00: 00:00 mouth [place] hr tablet 00 :00 daily. [facility] metoprolol 2019- 2020- No [id number] 25mg Take 1 U nivers succinate 1-30 02-24 tablet by ity of XL 25 mg 24 00:00: 00:00 mouth [place] hr tablet 00 :00 daily. [facility] metoprolol 2019- No [id number] 25mg Take 1 U nivers succinate 1-30 02-24 tablet by ity of XL 25 mg 24 00:00: 00:00 mouth [place] hr tablet 00 :00 daily. [facility] Branch aripiprazol 2018-08 Yes 5mg Take 5 mg U nivers e (ABILIFY 2-17 by mouth 2 ity of ORAL) 15:02: (two) [place] 33 times Medical daily. Branch aripiprazol 2018-08 Yes 5mg Take 5 mg U nivers e (ABILIFY 2-17 by mouth 2 ity of ORAL) 15:02: (two) [place] 33 times Medical daily. Branch aripiprazol 2018-08 Yes 5mg Take 5 mg U nivers e (ABILIFY 2-17 by mouth 2 ity of ORAL) 15:02: (two) [place] 33 times Medical daily. Branch aripiprazol 2018-08 Yes 5mg Take 5 mg U nivers e (ABILIFY 2-17 by mouth 2 ity of ORAL) 15:02: (two) [place] [id number] times Medical daily. Branch VITAMIN B 2018-08 Yes Take by Unive rs COMPLEX 0-31 mouth. ity of ORAL 17:11: [address] traZODONE 2018-08 Yes 100mg Take 100 Uni vers 100 mg 0-31 mg by ity of tablet 17:11: mouth at [place] [address] bedtime. Medical Branch VITAMIN B 2018-08 Yes Take by Unive rs COMPLEX 0-31 mouth. ity of ORAL 17:11: [address] traZODONE 2018-08 Yes 100mg Take 100 Uni vers 100 mg 0-31 mg by ity of tablet 17:11: mouth at [place] [address] bedtime. Medical Branch VITAMIN B 2018-08 Yes Take by Unive rs COMPLEX 0-31 mouth. ity of ORAL 17:11: [address] traZODONE 2018-08 Yes 100mg Take 100 Uni vers 100 mg 0-31 mg by ity of tablet 17:11: mouth at [place] [address] bedtime. Medical Branch VITAMIN B 2018-08 Yes Take by Unive rs COMPLEX 0-31 mouth. ity of ORAL 17:11: [address] traZODONE 2018-08 Yes 100mg Take 100 Uni vers 100 mg 0-31 mg by ity of tablet 17:11: mouth at [place] [address] bedtime. Medical Branch traZODONE Yes 100mg Take 100 Uni vers 100 mg 8-29 mg by ity of tablet 19:24: mouth at [place] [address] bedtime. Medical Branch traZODONE Yes 100mg Take 100 Uni vers 100 mg 8-29 mg by ity of tablet 19:24: mouth at [place] [address] bedtime. Medical Branch traZODONE Yes 100mg Take 100 Uni vers 100 mg 8-29 mg by ity of tablet 19:24: mouth at [place] [address] bedtime. [facility] Branch traZODONE Yes 100mg Take 100 Uni vers 100 mg 8-29 mg by ity of tablet 19:24: mouth at [place] [address] bedtime. Medical Branch traZODONE Yes 100mg Take 100 Uni vers 100 mg 8-29 mg by ity of tablet 19:24: mouth at [place] 39 bedtime. Medical Branch traZODONE Yes 100mg Take 100 Uni vers 100 mg 8-29 mg by ity of tablet 19:24: mouth at [place] 39 bedtime. Medical Branch benztropine Yes 1mg Take 1 mg U nivers 1 mg tablet 8-29 by mouth ity of 14:39: daily. [place] [facility] ARIPiprazol Yes 10mg Take 10 [...] 8-29 by mouth ity of 14:39: daily. [place] [facility] ARIPiprazol Yes 10mg Take 10 [...] 8-29 by mouth ity of 14:39: daily. [place] [facility] ARIPiprazol Yes 10mg Take 10 [...] 8-29 by mouth ity of 14:39: daily. [address] ARIPiprazol 0 Yes 10mg Take 10 mg [...] 8-29 by mouth ity of 14:39: daily. [address] ARIPiprazol Yes 10mg Take 10 mg [...] 8-29 by mouth ity of 14:39: daily. [address] ARIPiprazol Yes 10mg Take 10 mg Univers e 10 mg 8-29 by mouth 2 ity of tablet 14:39: (two) [place] 21 times Medical daily. Branch DULoxetine Yes Take 3 Unive rs 30 mg 8-29 capsules ity of capsule 14:39: by mouth [place] 21 daily. Medical Branch OLANZapine [id number] Yes 10mg Take 10 mg U nivers (ZYPREXA) 8-29 by mouth 2 ity of 10 mg 14:39: (two) [place] tablet 21 times Medical daily. Branch benztropine 0 Yes 1mg Take 1 mg U nivers 1 mg tablet 8-29 by mouth ity of 14:39: daily. [address] ARIPiprazol 0 Yes 10mg Take 10 mg [...] 21 times Medical daily. Branch metoprolol Yes [id number] 25mg Take 1 Un nneka succinate 8-29 tablet by ity o f XL 25 mg 24 00:00: mouth [place] hr tablet 00 daily. Medical Branch hydroCHLORO Yes [id number] 25mg Take 1 [facility] thiazide 25 8-29 tablet by ity of mg tablet 00:00: mouth [place] 00 daily. Medical Branch meloxicam Yes [id number] 15mg Take 1 U nivers 15 mg 8-29 tablet by ity of tablet 00:00: mouth [place] 00 daily. Medical Branch metoprolol Yes [id number] 25mg Take 1 Un nneka succinate 8-29 tablet by ity o f XL 25 mg 24 00:00: mouth [place] hr tablet 00 daily. Medical Branch hydroCHLORO Yes [id number] 25mg Take 1 [facility] thiazide 25 8-29 tablet by ity of mg tablet 00:00: mouth [place] 00 daily. Medical Branch meloxicam Yes [id number] 15mg Take 1 U nivers 15 mg 8-29 tablet by ity of tablet 00:00: mouth [place] 00 daily. Medical Branch metoprolol Yes [id number] 25mg Take 1 Un nneka succinate 8-29 tablet by ity o f XL 25 mg 24 00:00: mouth [place] hr tablet 00 daily. Medical Branch hydroCHLORO Yes [id number] 25mg Take 1 [facility] thiazide 25 8-29 tablet by ity of mg tablet 00:00: mouth [place] 00 daily. Medical Branch meloxicam Yes [id number] 15mg Take 1 U nivers 15 mg 8-29 tablet by ity of tablet 00:00: mouth [place] 00 daily. Medical Branch metoprolol Yes [id number] 25mg Take 1 Un nneka succinate 8-29 tablet by ity o f XL 25 mg 24 00:00: mouth [place] hr tablet 00 daily. [facility] hydroCHLORO 2018-0 Yes [id number] 25mg Take 1 Univers thiazide 25 8-29 tablet by ity of mg tablet 00:00: mouth [place] 00 daily. [facility] meloxicam 2019-0 Yes [id number] 15mg Take 1 U nivers 15 mg 8-29 tablet by ity of tablet 00:00: mouth [place] 00 daily. [facility] metoprolol 0 Yes [id number] 25mg Take 1 Un nneka succinate 8-29 tablet by ity o f XL 25 mg 24 00:00: mouth [place] hr tablet 00 daily. [facility] hydroCHLORO 0 Yes [id number] 25mg Take 1 [facility] thiazide 25 8-29 tablet by ity of mg tablet 00:00: mouth [place] 00 daily. [facility] meloxicam 0 Yes [id number] 15mg Take 1 U nivers 15 mg 8-29 tablet by ity of tablet 00:00: mouth [place] 00 daily. [facility] metoprolol 0 Yes [id number] 25mg Take 1 Un nneka succinate 8-29 tablet by ity o f XL 25 mg 24 00:00: mouth [place] hr tablet 00 daily. [facility] hydroCHLORO 0 Yes [id number] 25mg Take 1 [facility] thiazide 25 8-29 tablet by ity of mg tablet 00:00: mouth [place] 00 daily. [facility] meloxicam 0 Yes [id number] 15mg Take 1 U nivers 15 mg 8-29 tablet by ity of tablet 00:00: mouth [place] 00 daily. [facility] metoprolol 0 Yes [id number] 25mg Take 1 Un nneka succinate 8-29 tablet by ity o f XL 25 mg 24 00:00: mouth [place] hr tablet 00 daily. [facility] hydroCHLORO 0 Yes [id number] 25mg Take 1 [facility] thiazide 25 8-29 tablet by ity of mg tablet 00:00: mouth [place] 00 daily. [facility] meloxicam 0 Yes [id number] 15mg Take 1 U nivers 15 mg 8-29 tablet by ity of tablet 00:00: mouth [place] 00 daily. [facility] metoprolol [id number] 2020- No [id number] 25mg Take 1 U nivers succinate 04-28 tablet by ity of XL 25 mg 24 00:00[place] :00 daily. [facility] hydroCHLORO 2020- No [id number] 25mg Take 1 Univers thiazide 25 04-28 tablet by it y of mg tablet 00:00: 00:00 mouth [place] 00 :00 daily. [facility] meloxicam 2020- No [id number] 15mg Take 1 Univers 15 mg 04-28 tablet by ity of tablet 00:00: 00:00 mouth [place] 00 :00 daily. [facility] metoprolol 2020- No [id number] 25mg Take 1 U nivers succinate 04-28 tablet by ity of XL 25 mg 24 00:00[place] :00 daily. [facility] hydroCHLORO 2020- No [id number] 25mg Take 1 Univers thiazide 25 04-28 tablet by it y of mg tablet 00:00: 00:00 mouth [place] 00 :00 daily. [facility] meloxicam 2020- No [id number] 15mg Take 1 Univers 15 mg 04-28 tablet by ity of tablet 00:00: 00:00 mouth [place] 00 :00 daily. [facility] Dose 2019-0 No Unknown 7-30 00:00: 00 Dose 2019-0 No Unknown 7-30 00:00: 00 Dose 2019-0 No Unknown 7-30 00:00: 00 Dose 2019-0 No Unknown 7-30 00:00: 00 Dose 2019-0 No Unknown 7-30 00:00: 00 Dose 2019-0 No Unknown 7-30 00:00: 00 METOPROLOL 2019- 2019- No [id number] TAKE 1 U nivers SUCCINATE 03-09 TABLET BY ity of XL 25 mg 24 00:00: 00:[place] 00 :00 EVERY DAY [facility] METOPROLOL 2019- No [id number] TAKE 1 U nivers SUCCINATE 7-04-28 TABLET BY ity of XL 25 mg 24 00:00: 00:[place] 00 :00 EVERY DAY [facility] hydroCHLORO 2019- No [id number] 25mg Take 1 Univers thiazide 25 5-30 -29 tablet by it y of mg tablet 00:00: 00:00 mouth [place] 00 :00 daily. [facility] meloxicam 2019- No [id number] 7.5mg Take 1 Univers (MOBIC) 7.5 5-30 -29 tablet by it y of mg tablet 00:00: 00:00 mouth [place] 00 :00 daily. [facility] hydroCHLORO 2019- No [id number] 25mg Take 1 Univers thiazide 25 -30 -29 tablet by it y of mg tablet 00:00: 00:00 mouth [place] 00 :00 daily. [facility] meloxicam 2019- No [id number] 7.5mg Take 1 Univers (MOBIC) 7.5 -30 [...] by mouth ity of tablet 20:00: at [place] 25 bedtime. [facility] aripiprazol 2019-0 Yes [...] by mouth ity of tablet 20:00: at [place] 25 bedtime. [facility] DULOXETINE 2019-0 Yes 60mg Take 60 mg U nivers HCL 4-23 by mouth 3 ity of (CYMBALTA 20:00: (three) [place] ORAL) 25 times Medical daily. Branch OLANZapine 2019-0 Yes 20mg Take 20 mg U nivers 20 mg 4-23 by mouth ity of tablet 20:00: at [place] 25 bedtime. Medical [facility] DULOXETINE 2019-0 Yes 60mg Take 60 mg U nivers HCL 4-23 by mouth 3 ity of (CYMBALTA 20:00: (three) [place] ORAL) 25 times Medical daily. Branch OLANZapine 2019-0 Yes 20mg Take 20 mg U nivers 20 mg 4-23 by mouth ity of tablet 20:00: at [place] 25 bedtime. Medical [facility] DULOXETINE 2019-0 Yes 60mg Take 60 mg U nivers HCL 4-23 by mouth 3 ity of (CYMBALTA 20:00: (three) [place] ORAL) 25 times Medical daily. Branch OLANZapine 2019-0 Yes 20mg Take 20 mg U nivers 20 mg 4-23 by mouth ity of tablet 20:00: at [place] 25 bedtime. Medical [facility] DULOXETINE 2019-0 Yes 60mg Take 60 mg U nivers HCL 4-23 by mouth 3 ity of (CYMBALTA 20:00: (three) [place] ORAL) 25 times Medical daily. Branch OLANZapine 2019-0 Yes 20mg Take 20 mg U nivers 20 mg 4-23 by mouth ity of tablet 20:00: at [place] 25 bedtime. [facility] aripiprazol 2019-0 Yes [...] by mouth ity of tablet 20:00: at [place] 25 bedtime. [facility] aripiprazol 2019-0 Yes [...] by mouth ity of tablet 20:00: at [place] 25 bedtime. [facility] aripiprazol 2019-0 Yes [...] by mouth ity of tablet 20:00: at [place] 25 bedtime. Medical [facility] aripiprazol 2018-0 Yes 5mg Take 5 mg U nivers e (ABILIFY 4-23 by mouth 2 ity of ORAL) 20:00: (two) [place] 25 times Medical daily. Branch DULOXETINE 2018- Yes 60mg Take 60 mg U nivers HCL 4-23 by mouth 3 ity of (CYMBALTA 20:00: (three) [place] ORAL) 25 times Medical daily. Branch OLANZapine Yes 20mg Take 20 mg U nivers 20 mg 4-23 by mouth ity of tablet 20:00: at [place] 25 bedtime. Medical Branch aripiprazol Yes 5mg Take 5 mg U nivers e (ABILIFY 4-23 by mouth 2 ity of ORAL) 20:00: (two) [place] 25 times Medical daily. Branch VITAMIN B Yes Take by Unive rs COMPLEX 3-28 mouth. ity of ORAL 16:11: [address] VITAMIN B Yes Take by Unive rs COMPLEX 3-28 mouth. ity of ORAL 16:11: [address] VITAMIN B Yes Take by Unive rs COMPLEX 3-28 mouth. ity of ORAL 16:11: [address] VITAMIN B Yes Take by Unive rs COMPLEX 3-28 mouth. ity of ORAL 16:11: [address] VITAMIN B Yes Take by Unive rs COMPLEX 3-28 mouth. ity of ORAL 16:11: [address] VITAMIN B Yes Take by Unive rs COMPLEX 3-28 mouth. ity of ORAL 16:11: [address] amlodipine No 1mg 5 mg tablet 2-19 00:00: 00 amlodipine No 1mg 5 mg tablet 2-19 00:00: 00 amlodipine 2019-0 No 1mg 5 mg tablet 219 00:00: 00 amlodipine 2018-1 No 1mg 10 [...] 8-15 tablet 00:00: 00 cyclobenzap 2018-0 Yes [id number] Bid prn Univers rine 10 mg 8-02 ity of tablet 00:00: [place] 00 [facility] cyclobenzap 2018-0 Yes [id number] Bid prn Univers rine 10 mg 8-02 ity of tablet 00:00: [place] 00 [facility] cyclobenzap 2018-0 Yes [id number] Bid prn Univers rine 10 mg 8-02 ity of tablet 00:00: [place] 00 [facility] cyclobenzap 2018-0 Yes [id number] Bid prn Univers rine 10 mg 8-02 ity of tablet 00:00: [place] 00 [facility] cyclobenzap 2018-0 Yes [id number] Bid prn Univers rine 10 mg 8-02 ity of tablet 00:00: [place] 00 [facility] cyclobenzap 2018-0 Yes [id number] Bid prn Univers rine 10 mg 8-02 ity of tablet 00:00: [place] 00 [facility] cyclobenzap 2018-0 Yes [id number] Bid prn Univers rine 10 mg 8-02 ity of tablet 00:00: [place] 00 [facility] cyclobenzap 2018-0 Yes [id number] Bid prn Univers rine 10 mg 8-02 ity of tablet 00:00: [place] 00 [facility] cyclobenzap 2018-0 Yes [id number] Bid prn Univers rine 10 mg 8-02 ity of tablet 00:00: [place] 00 [facility] cyclobenzap 2018-0 Yes [id number] Bid prn Univers rine 10 mg 8-02 ity of tablet 00:00: [place] 00 [facility] cyclobenzap 2018-0 2020- No [id number] Bid prn Univers rine 10 mg 8-02 02-24 ity of tablet 00:00: 00:00 [place] 00 :00 [facility] cyclobenzap 2018-0 2020- No [id number] Bid prn Univers rine 10 mg 8-02 02-24 ity of tablet 00:00: 00:00 [place] 00 :00 [facility] cyclobenzap 2018-0 2020- No [id number] Bid prn Univers rine 10 mg 04-01 ity of tablet 00:00: 00:00 [place] 00 :00 [facility] amlodipine 2018-0 No [...] 5-19 capsule 00:00: 00 DULoxetine 2016-0 Yes [id number] Emanuel sey HCl 30 MG 3-16 Seybold oral 00:00: - Capsule 00 Externa Delayed l Release Sprinkle hydrOXYzine 2016-0 Yes [id number] Ke lsey HCl 25 MG 3-16 Seybold oral Tablet 00:00: - 00 Externa l DULoxetine 2016-0 Yes [id number] Emanuel sey HCl 30 MG 3-16 Seybold oral 00:00: - Capsule 00 Externa Delayed l Release Sprinkle hydrOXYzine 2016-0 Yes [id number] Ke lsey HCl 25 MG 3-16 Seybold oral Tablet 00:00: - 00 Externa l DULoxetine 2016-0 Yes Jelena HCl 30 MG 3-16 Seybold oral 00:00: - Capsule 00 Externa Delayed l Release Sprinkle hydrOXYzine 2016-0 Yes Jelena HCl 25 MG 3-16 Seybold oral Tablet 00:00: - 00 Externa l DULoxetine 2016-0 Yes [id number] Emanuel sey HCl 30 MG 3-16 Seybold oral 00:00: - Capsule 00 Externa Delayed l Release Sprinkle hydrOXYzine 2016-0 Yes [id number] Ke lsey HCl 25 MG 3-16 Seybold oral Tablet 00:00: - 00 Externa l DULoxetine 2016-0 Yes [id number] Emanuel sey HCl 30 MG 3-16 Seybold oral 00:00: - Capsule 00 Externa Delayed l Release Sprinkle hydrOXYzine 2016-0 Yes [id number] Ke lsey HCl 25 MG 3-16 Seybold oral Tablet 00:00: - 00 Externa l DULoxetine 2016-0 Yes [id number] Emanuel sey HCl 30 MG 3-16 Seybold oral 00:00: - Capsule 00 Externa Delayed l Release Sprinkle hydrOXYzine 2016-0 Yes [id number] Ke lsey HCl 25 MG 3-16 Seybold oral Tablet 00:00: - 00 Externa l DULoxetine 2016-0 2023- No [id number] Ke lsey HCl 30 MG 3-16 04-24 Seybold oral 00:00: 00:00 - Capsule 00 :00 Externa Delayed l Release Sprinkle hydrOXYzine 2016-0 2023- No [id number] K elsey HCl 25 MG 3-16 04-24 [...] Completed Jelena S eybold 00:00:00 - External DTaP Unspecified 2009-04-17 Completed Jelena S eybold 00:00:00 - External Hepatitis A 2009-04-17 Completed Jelena Seybol d 00:00:00 - External Hepatitis A 2009-04-17 [...] y Seybold Conjugate 7 00:00:00 - External HPV 4 (Human 2009-04-17 Completed Jelena Seybo ld Papillomavirus) 00:00:00 - Externa l DTaP Unspecified 2009-04-17 Completed Jelena Umaña eybold 00:00:00 - External Hepatitis A 2009-04-17 Completed Jelena Eatonol d 00:00:00 - External HPV 4 (Human 2009-04-17 Completed Jelena Seybo ld Papillomavirus) 00:00:00 - Externa l Pneumococcal Vaccine, 2009-04-17 Completed Emanuel guevaray Seybold Conjugate 7 00:00:00 - External Pneumococcal Vaccine, 2009-04-17 Completed Emanuel guevaray Seybold Conjugate 7 00:00:00 - External DTaP [...] Completed Jelena Seyb old Mcv4,unspecified 00:00:00 - Hazardous Substances Scientist 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 Hepatitis A 2008-02-18 Completed Jelena Seybol d 00:00:00 - External HPV 4 (Human 2008-02-18 Completed Jelena Seybo ld Papillomavirus) 00:00:00 - Externa l Meningococcal 2008-02-18 Completed Jelena Seyb old Mcv4,unspecified 00:00:00 - Hazardous Substances Scientist 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 Hepatitis A 2008-02-18 Completed Jelena Seybol d 00:00:00 - External HPV 4 (Human 2008-02-18 Completed Jelena Seybo ld Papillomavirus) 00:00:00 - Externa l Meningococcal 2008-02-18 Completed Jelena Seyb old Mcv4,unspecified 00:00:00 - Hazardous Substances Scientist 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 Hepatitis A 2008-02-18 Completed Jelena Seybol d 00:00:00 - External Hepatitis A 2008-02-18 Completed Jelena Seybol d 00:00:00 - External HPV 4 (Human 2008-02-18 Completed Jelena Seybo ld Papillomavirus) 00:00:00 - Externa l Meningococcal 2008-02-18 Completed Jelena Seyb old Mcv4,unspecified 00:00:00 - Hazardous Substances Scientist 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 Hepatitis A 2008-02-18 Completed Jelena Seybol d 00:00:00 - External HPV 4 (Human 2008-02-18 Completed Jelena Seybo ld Papillomavirus) 00:00:00 - Externa l Meningococcal 2008-02-18 Completed Jelena Seyb old Mcv4,unspecified 00:00:00 - Hazardous Substances Scientist 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 HPV 4 (Human 2008-02-18 Completed Jelena Seybo ld Papillomavirus) 00:00:00 - Externa l Meningococcal 2008-02-18 Completed Jelena Seyb old Mcv4,unspecified 00:00:00 - Hazardous Substances Scientist 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 Hepatitis A 2008-02-18 Completed Jelena Seybol d 00:00:00 - External HPV 4 (Human 2008-02-18 Completed Jelena Seybo ld Papillomavirus) 00:00:00 - Externa l Meningococcal 2008-02-18 Completed Jelena Seyb old Mcv4,unspecified 00:00:00 - Hazardous Substances Scientist 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 Hepatitis A 2008-02-18 Completed Jelena Seybol d 00:00:00 - External HPV 4 (Human 2008-02-18 Completed Jelena Seybo ld Papillomavirus) 00:00:00 - Externa l Meningococcal 2008-02-18 Completed Jelena Seyb old Mcv4,unspecified 00:00:00 - Hazardous Substances Scientist 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 Td (adult), 2 2006-05-25 Completed [...] free, adsorbed Varicella Vaccine 2002-04-21 Completed Jelena Guevaraybmarcel 00:00:00 - External Varicella Vaccine 2002-04-21 Completed Jelena Ibrahim 00:00:00 - External Varicella Vaccine 2002-04-21 Completed Jelena Ibrahim 00:00:00 - External Varicella Vaccine 2002-04-21 Completed Jelena Ibrahim 00:00:00 - External Varicella Vaccine 2002-04-21 Completed Jelena Guevaraybold 00:00:00 - External Varicella Vaccine 2002-04-21 Completed [...] xternal rtussis HIB- Haemophilus 1996-08-05 Completed Jelena shahboconstance Influenzae Type B 00:00:00 - Exter nal DTP- 1996-08-05 Completed Jelena Ibrahmi Diphtheria,Tetanus,Pe 00:00:00 - E xternal rtussis HIB- Haemophilus 1996-08-05 Completed Jelena Umaña eybold Influenzae Type B 00:00:00 - Exter nal DTP- 1996-08-05 Completed Jelena Ibrahim Diphtheria,Tetanus,Pe 00:00:00 - E xternal rtussis HIB- Haemophilus 1996-08-05 Completed Jelena newman Influenzae Type B 00:00:00 - Exter nal [...] - External HIB- Haemophilus 1995-09-25 Completed Jelena S eybold [...] - External Hepatitis B, 1993 Completed Jelena Seybo ld Unspecified 00:00:00 - External Hepatitis B, 1993 Completed Jelena Seybo ld Unspecified 00:00:00 - External Hepatitis B, 1993 Completed Jelena Seybo ld Unspecified 00:00:00 - External Hepatitis B, 1993 Completed Jelena Seybo ld Unspecified 00:00:00 - External Hepatitis B, 1993 Completed Jelena Seybo ld Unspecified 00:00:00 - External Hepatitis B, 1993 Completed Jelena Seybo ld Unspecified 00:00:00 - External Hepatitis B, 1993 Completed Jelena Seybo ld Unspecified 00:00:00 - External Hepatitis B, 1993 Completed Jelena Seybo ld Unspecified 00:00:00 - External DTP- 1993 Completed Jelena Eatonold Diphtheria,Tetanus,Pe 00:00:00 - E xternal rtussis DTP- 1993 Completed Jelena Eatonold Diphtheria,Tetanus,Pe 00:00:00 - E xternal rtussis DTP- 1993 Completed Jelena Eatonold Diphtheria,Tetanus,Pe 00:00:00 - E xternal rtussis DTP- 1993 Completed Jelena Eatonold Diphtheria,Tetanus,Pe 00:00:00 - E xternal rtussis DTP- 1993 Completed Jelena Seybold Diphtheria,Tetanus,Pe 00:00:00 - E xternal rtussis DTP- 1993 Completed Jelena Eatonold Diphtheria,Tetanus,Pe 00:00:00 - E xternal rtussis DTP- 1993 Completed Jelena Eatonold Diphtheria,Tetanus,Pe 00:00:00 - E xternal rtussis DTP- 1993 Completed Jelena Ibrahim Diphtheria,Tetanus,Pe 00:00:00 - E xternal rtussis DTP- 1993 Completed Jelena Eatonold Diphtheria,Tetanus,Pe 00:00:00 - E xternal rtussis OPV- Oral Polio 1993 Completed Jelena Guevara ybold Vaccine 00:00:00 - External DTP- 1993 Completed Jelena Eatonold Diphtheria,Tetanus,Pe 00:00:00 - E xternal rtussis OPV- Oral Polio 1993 Completed Jelena Guevara ybold Vaccine 00:00:00 - External DTP- 1993 Completed Jelena Ibrahim Diphtheria,Tetanus,Pe 00:00:00 - E xternal rtussis OPV- Oral Polio 1993 Completed Jelena Guevara ybold Vaccine 00:00:00 - External DTP- 1993 Completed Jelena Ibrahim Diphtheria,Tetanus,Pe 00:00:00 - E xternal rtussis DTP- 1993 Completed Jelena Eatonold Diphtheria,Tetanus,Pe 00:00:00 - E xternal rtussis OPV- Oral Polio 1993 Completed Jelena Guevara ybold Vaccine 00:00:00 - External DTP- 1993 Completed Jelena Ibrahim Diphtheria,Tetanus,Pe 00:00:00 - E xternal rtussis OPV- Oral Polio 1993 Completed Jelena Guevara ybold Vaccine 00:00:00 - External DTP- 1993 Completed Jelena Eatonold Diphtheria,Tetanus,Pe 00:00:00 - E xternal rtussis OPV- [...] External OPV- Oral Polio 1993 Completed Jelena allenold Vaccine 00:00:00 - External Hepatitis B, 1993 [...] - External Hepatitis B, 1993 Completed Jelena Seybo ld Unspecified 00:00:00 - External Hepatitis B, [...] Time Observation Value Comments Source Systolic blood 2022-12-29 14:50:00 149 mm[Hg] Jelena Seybold - pressure External Diastolic blood 2022-12-29 14:50:00 90 mm[Hg] Emanuelse y Seybold - pressure External Heart rate 2022-12-29 14:50:00 78 /min Jelena shahbold - External Body temperature 2022-12-29 14:50:00 37.39 Mera Ashlie ey Seybold - External Respiratory rate 2022-12-29 14:50:00 15 /min Ashlie shah Seybold - External Body height 2022-12-29 14:50:00 160 cm Jelena Umaña eybold - External Body weight 2022-12-29 14:50:00 130.182 kg Jelena Umaña eybold - External BMI 2022-12-29 14:50:00 50.84 kg/m2 Jelena Umaña eybold - External Systolic blood 2022-12-22 14:00:00 132 mm[Hg] Jelena Seybold - pressure External Diastolic blood 2022-12-22 14:00:00 96 mm[Hg] Emanuelse y Seybold - pressure External Heart rate 2022-12-22 14:00:00 96 /min Jelena Umaña eybold - External Body temperature 2022-12-22 14:00:00 36.39 Mera Ashlie ey Seybold - External Respiratory rate 2022-12-22 14:00:00 18 /min Ashlie ey Seybold - External Body height 2022-12-22 14:00:00 160 cm Jelena Umaña eybold - External Body weight 2022-12-22 14:00:00 127.007 kg Jelena Umaña eybold - External BMI 2022-12-22 14:00:00 49.60 kg/m2 Jelena Umaña eybold - External Oxygen saturation in 2022-12-22 14:00:00 97 /min Jelena Ibrahim - Arterial blood by External Pulse oximetry Body height 2022-12-08 15:56:00 160 cm Jelena Umaña eybold - External Body weight 2022-12-08 15:56:00 111.131 kg Jelena Umaña eybold - External BMI 2022-12-08 15:56:00 43.40 kg/m2 Jelena Umaña eybold - External Systolic blood 2022-10-28 15:06:00 129 mm[Hg] Jelena Seybold - pressure External Diastolic blood 2022-10-28 15:06:00 86 mm[Hg] Beth booth Seybold - pressure External Heart rate 2022-10-28 15:06:00 80 /min Jelena Umaña eybold - External Body temperature 2022-10-28 15:06:00 36.56 Mera Ashlie ey Seybold - External Respiratory rate 2022-10-28 15:06:00 16 /min Ashlie ey Seybold - External Body height 2022-10-28 15:06:00 160 cm Jelena Umaña eybold - External Body weight 2022-10-28 15:06:00 [...] 15:09:00 126 mm[Hg] Univer sity of pressure [place] [facility] Diastolic blood 2020-09-07 15:09:00 88 mm[Hg] Unive rsity of pressure [place] [facility] Heart rate 2020-09-07 15:09:00 76 /min [facility] [place] [facility] Body height 2020-09-07 15:09:00 160 cm [facility] [place] [facility] Body weight 2020-09-07 15:09:00 114.306 kg [facility] [place] [facility] BMI 2020-09-07 15:09:00 44.64 kg/m2 [facility] [place] [facility] Systolic blood 2020-09-07 15:09:00 126 mm[Hg] Univer sity of pressure [place] [facility] Diastolic blood 2020-09-07 15:09:00 88 mm[Hg] Unive rsity of pressure [place] [facility] Heart rate 2020-09-07 15:09:00 76 /min [facility] [place] [facility] Body height 2020-09-07 15:09:00 160 cm [facility] [place] [facility] Body weight 2020-09-07 15:09:00 114.306 kg [facility] [place] [facility] BMI 2020-09-07 15:09:00 44.64 kg/m2 [facility] [place] [facility] Respiratory rate 2020-08-02 16:44:00 20 /min Univ ersity of [place] [facility] Body height 2020-08-02 16:44:00 160 cm [facility] [place] [facility] Body weight 2020-08-02 16:44:00 114.352 kg [facility] [place] [facility] BMI 2020-08-02 16:44:00 44.66 kg/m2 [facility] [place] [facility] Systolic blood 2020-08-02 16:44:00 113 mm[Hg] Univer sity of pressure [place] [facility] Diastolic blood 2020-08-02 16:44:00 66 mm[Hg] Unive rsity of pressure [place] [facility] Heart rate 2020-08-02 16:44:00 76 /min [facility] [place] [facility] Body temperature 2020-08-02 16:44:00 36 Mera Univ ersity of [place] [facility] Systolic blood 2020-05-17 16:06:00 125 mm[Hg] Univer sity of pressure [place] [facility] Diastolic blood 2020-05-17 16:06:00 76 mm[Hg] Unive rsity of pressure [place] [facility] Heart rate 2020-05-17 16:06:00 93 /min [facility] [place] [facility] Body temperature 2020-05-17 16:06:00 36.44 Mera Univ ersity [facility] [place] [facility] Respiratory rate 2020-05-17 16:06:00 18 /min Univ ersity of [place] [facility] Body height 2020-05-17 16:06:00 160 cm [facility] [place] [facility] Body weight 2020-05-17 16:06:00 105.688 kg [facility] [place] [facility] BMI 2020-05-17 16:06:00 41.27 kg/m2 [facility] [place] [facility] Systolic blood 2020-03-08 15:04:00 108 mm[Hg] Univer sity of pressure [place] [facility] Diastolic blood 2020-03-08 15:04:00 69 mm[Hg] Unive rsity of pressure [place] [facility] Heart rate 2020-03-08 15:04:00 74 /min [facility] [place] [facility] Body temperature 2020-03-08 15:04:00 36.61 Mera Univ [facility] [place] [facility] Respiratory rate 2020-03-08 15:04:00 20 /min Univ ersity [facility] [place] [facility] Body height 2020-03-08 15:04:00 160 cm [facility] [place] [facility] Body weight 2020-03-08 15:04:00 112.583 kg [facility] [place] [facility] BMI 2020-03-08 15:04:00 43.97 kg/m2 [facility] [place] [facility] Systolic blood 2019-10-25 14:56:00 128 mm[Hg] Univer sity of pressure [place] [facility] Diastolic blood 2019-10-25 14:56:00 92 mm[Hg] Unive rsity of pressure [place] [facility] Heart rate 2019-10-25 14:56:00 72 /min [facility] [place] [facility] Body temperature 2019-10-25 14:56:00 36.67 Mera [facility] [place] [facility] Body height 2019-10-25 14:56:00 160 cm [facility] [place] [facility] Body weight 2019-10-25 14:56:00 110.904 kg [facility] [place] [facility] BMI 2019-10-25 14:56:00 43.31 kg/m2 [facility] [place] [facility] Oxygen saturation in 2019-10-25 14:56:00 99 /min University of Arterial blood by [facility] nereida Pulse oximetry Branch Systolic blood 2019-10-24 17:13:00 120 mm[Hg] Univer sity of pressure [place] [facility] Diastolic blood 2019-10-24 17:13:00 81 mm[Hg] Unive rsity of pressure [place] [facility] Heart rate 2019-10-24 17:13:00 75 /min [facility] [place] [facility] Respiratory rate 2019-10-24 17:13:00 19 /min Univ ersity [facility] [place] [facility] Body height 2019-10-24 17:13:00 160 cm [facility] [place] [facility] Body weight 2019-10-24 17:13:00 110.133 kg [facility] [place] [facility] BMI 2019-10-24 17:13:00 43.01 kg/m2 [facility] [place] [facility] Oxygen saturation in 2019-10-24 17:13:00 99 /min [facility] of Arterial blood by [facility] Pulse oximetry Branch Systolic blood 2019-09-29 16:38:00 93 mm[Hg] Univer sity of pressure [place] [facility] Diastolic blood 2019-09-29 16:38:00 64 mm[Hg] Unive rsity of pressure [place] [facility] Heart rate 2019-09-29 16:38:00 77 /min [facility] [place] [facility] Body temperature 2019-09-29 16:38:00 36.5 Mera [facility] [place] [facility] Respiratory rate 2019-09-29 16:38:00 20 /min [facility] [place] [facility] Body height 2019-09-29 16:38:00 160 cm [facility] [place] [facility] Body weight 2019-09-29 16:38:00 109.77 kg [facility] [place] [facility] BMI 2019-09-29 16:38:00 42.87 kg/m2 [facility] [place] [facility] Systolic blood 2019-04-28 14:39:00 105 mm[Hg] Univer sity of pressure [place] [facility] Diastolic blood 2019-04-28 14:39:00 62 mm[Hg] Unive rsity of pressure [place] [facility] Heart rate 2019-04-28 14:39:00 87 /min [facility] [place] [facility] Body temperature 2019-04-28 14:39:00 36.94 Mera [facility] Respiratory rate 2019-04-28 14:39:00 18 /min [facility] Body height 2019-04-28 14:39:00 160 cm [facility] Body weight 2019-04-28 14:39:00 123.832 kg [facility] BMI 2019-04-28 14:39:00 48.36 kg/m2 [facility] BP Systolic 2022-09-10 11:46:00 168 [...] Source Performed REFERRAL- 2020-09-27 06:01:00 Doctor Lucina, [facility] REQUEST/RESPONSE [facility] MR KNEE LEFT WO CONTRAST 2020-08-20 18:12:04 Alexandre Delgado [facility] [place] NOTICE OF PRIVACY 2020-08-02 06:01:00 Doctor Lucina, [facility] PRACTICES [facility] AGREEMENTS AUTHORIZATIONS 2020-08-02 06:01:00 Doctor Lucina, [facility] AND IRREVOCABLE [facility] ASSIGNMENTS (FORM 2001) VACCINATIONS - CONSENTS, 2020-05-17 05:01:00 Doctor Lucina, [facility] ELIGIBILITY, HISTORY [facility] XR KNEE 3 VW LEFT 2020-03-16 13:13:36 Alexandre Delgado [facility] [place] SCANNED LAB RESULTS 2020-03-08 05:01:00 Doctor Lucina, [facility] ASSIGNMENT OF BENEFITS 2020-02-10 13:57:41 [facility] - PRESCRIPTION / 2019-09-08 06:01:00 Doctor Lucina, [facility] ORDER [facility] AGREEMENTS AUTHORIZATIONS 2019-04-28 05:01:00 Doctor Lucina, [facility] AND IRREVOCABLE [facility] ASSIGNMENTS (FORM 2001) 45240 Ecg Routine Ecg 2018-06-14 00:00:00 W/least 12 Lds W/i r Plan of Care Planned Activity Planned Date Details Comments Source Goal Plan of Care Note [code = 62859-1] Goal Plan of Care Note [code = 02599-8] Goal Plan of Care Note [code = 15271-0] Goal Plan of Care Note [code = 23787-4] Goal Plan of Care Note [code = 83747-8] Goal Plan of Care Note [code = 75154-3] Goal Plan of Care Note [code = 17502-4] Goal Plan of Care Note [code = 67960-5] Goal Plan of Care Note [code = 54382-0] Goal Plan of Care Note [code = 86133-7] Goal Plan of Care Note [code = 01862-3] Goal Plan of Care Note [code = 30019-7] Goal Plan of Care Note [code = 55077-3] Goal Plan of Care Note [code = 66406-8] Goal Plan of Care Note [code = 98117-7] Goal Plan of Care Note [code = 23366-9] Goal Plan of Care Note [code = 51148-5] Goal Plan of Care Note [code = 85942-3] Goal Plan of Care Note [code = 61518-0] Goal Plan of Care Note [code = 72954-4] Goal Plan of Care Note [code = 46398-5] Goal Plan of Care Note [code = 50290-0] Goal Plan of Care Note [code = 16191-3] Goal Plan of Care Note [code = 40547-5] Goal Plan of Care Note [code = 38903-2] Goal Plan of Care Note [code = 44006-4] Goal Plan of Care Note [code = 59901-8] Goal Plan of Care Note [code = 37867-7] Goal Plan of Care Note [code = 03661-0] Goal Plan of Care Note [code = 76253-2] Goal Plan of Care Note [code = 88155-9] Goal Plan of Care Note [code = 72325-6] Goal Plan of Care Note [code = 84692-7] Goal Plan of Care Note [code = 73026-6] Goal Plan of Care Note [code = 95896-5] Goal Plan of Care Note [code = 26594-0] Goal Plan of Care Note [code = 67811-9] Goal Plan of Care Note [code = 29777-6] Goal Plan of Care Note [code = 31408-5] Goal Plan of Care Note [code = 33612-7] Goal Plan of Care Note [code = 28039-8] Goal Plan of Care Note [code = 40822-4] Goal Plan of Care Note [code = 65941-5] Goal Plan of Care Note [code = 35324-8] Goal Plan of Care Note [code = 90710-4] Goal Plan of Care Note [code = 90609-9] Goal Plan of Care Note [code = 84427-4] Goal Plan of Care Note [code = 95300-0] Goal Plan of Care Note [code = 27829-6] Goal Plan of Care Note [code = 56211-0] Goal Plan of Care Note [code = 18068-4] Goal Plan of Care Note [code = 74200-1] Goal Plan of Care Note [code = 96337-6] Goal Plan of Care Note [code = 93317-0] Goal Plan of Care Note [code = 58960-4] Goal Plan of Care Note [code = 07586-0] Goal Plan of Care Note [code = 60968-0] Goal Plan of Care Note [code = 50988-3] Goal Plan of Care Note [code = 64900-8] Goal Plan of Care Note [code = 59299-4] Goal Plan of Care Note [code = 93403-1] Goal Plan of Care Note [code = 94310-0] Goal Plan of Care Note [code = 12774-7] Goal Plan of Care Note [code = 04366-3] Goal Plan of Care Note [code = 44525-7] Goal Plan of Care Note [code = 98292-3] Goal Plan of Care Note [code = 81949-0] Goal Plan of Care Note [code = 34723-9] Goal Plan of Care Note [code = 59794-5] Goal Plan of Care Note [code = 63694-3] Goal Plan of Care Note [code = 34523-3] Goal Plan of Care Note [code = 19106-0] Goal Plan of Care Note [code = 97983-5] Goal Plan of Care Note [code = 00674-7] Goal Plan of Care Note [code = 46819-7] Goal Plan of Care Note [code = 97731-1] Goal Plan of Care Note [code = 65018-7] Goal Plan of Care Note [code = 23662-2] Goal Plan of Care Note [code = 64472-0] Goal Plan of Care Note [code = 04867-0] Goal Plan of Care Note [code = 42511-0] Goal Plan of Care Note [code = 94487-1] Goal Plan of Care Note [code = 25666-8] Goal Plan of Care Note [code = 00142-2] Goal Plan of Care Note [code = 59469-5] Goal Plan of Care Note [code = 52301-4] Goal Plan of Care Note [code = 37944-1] Goal Plan of Care Note [code = 70430-8] Goal Plan of Care Note [code = 42462-5] Goal Plan of Care Note [code = 63224-3] Goal Plan of Care Note [code = 81371-5] Goal Plan of Care Note [code = 25428-5] Goal Plan of Care Note [code = 36433-5] Goal Plan of Care Note [code = 23863-8] Goal Plan of Care Note [code = 66050-6] Goal Plan of Care Note [code = 39943-7] Goal Plan of Care Note [code = 87111-3] Goal Plan of Care Note [code = 50238-0] Goal Plan of Care Note [code = 00575-6] Goal Plan of Care Note [code = 63298-9] Goal Plan of Care Note [code = 99326-0] Goal Plan of Care Note [code = 79246-4] Goal Plan of Care Note [code = 10019-0] Goal Plan of Care Note [code = 92845-2] Goal Plan of Care Note [code = 14904-0] Goal Plan of Care Note [code = 60067-7] Goal Plan of Care Note [code = 66244-7] Goal Plan of Care Note [code = 35162-9] Goal Plan of Care Note [code = 92043-4] Encounters Start End Encounter Admission Attending Care Care Encounter Source Date/Time Date/Time Type Type Clinicians Facility Department ID 2023-04-28 2023-04-28 Outpatient JELENA VICK [id number] Jelena 09:00:00 09:00:00 DARLIN nolasco 2023-03-23 2023-03-23 Outpatient GAURAV PURVIS [id number] Jelena 10:30:00 10:30:00 Seybol d 2023-02-02 2023-02-02 Outpatient JELENA STOKES [id number] Jelena 09:30:00 09:30:00 SPENSER Seybol d 2023-01-28 2023-01-28 Outpatient JELENA BRIONES [id number] Jelena 11:00:00 11:00:00 AHMED Seybol d 2023-01-07 2023-01-07 Outpatient JELENA GARY [id number] Jelena 00:00:00 00:00:00 ROBYN Seybol d 2023-01-06 2023-01-06 Outpatient MERRILL, JELENA KNIGHT [id number] Jelena 00:00:00 00:00:00 JAROD Seybol d 2023-01-06 2023-01-06 Outpatient GAURAV PURVIS JELENA KNIGHT [id number] Jelena 00:00:00 00:00:00 Seybol d 2023-01-06 2023-01-06 Outpatient HUNDL, JELENA KNIGHT [id number] Jelena 00:00:00 00:00:00 ROBYN Seybol d 2023-01-01 2023-01-01 Outpatient HUNDL, JELENA KNIGHT [id number] Jelena 10:30:00 10:30:00 ROBYN Seybol d 2023-01-01 2023-01-01 Outpatient HUNDL, JELENA KNIGHT [id number] Jelena 00:00:00 00:00:00 ROBYN Seybol d 2022-12-31 2022-12-31 Outpatient PLABPA JELENA NKIGHT [id number] Jelena 09:00:00 09:00:00 Seybol d 2022-12-30 2022-12-30 Outpatient HUNDL, JELENA KNIGHT [id number] Jelena 10:30:00 10:30:00 ROBYN Seybol d 2022-12-29 2022-12-29 Outpatient LAB90 JELENA KNIGHT [id number] Jelena 11:20:00 11:20:00 Seybol d 2022-12-29 2022-12-29 Outpatient HUNDL, JELENA KNIGHT [id number] Jelena 10:30:00 10:30:00 ROBYN Seybol d 2022-12-29 2022-12-29 Outpatient HUNDL, JELENA KNIGHT [id number] Jelena 00:00:00 00:00:00 ROBYN Seybol d 2022-12-29 2022-12-29 Outpatient SEWIELAM, JELENA KNIGHT [id number] Jelena 00:00:00 00:00:00 AHMED Seybol d 2022-12-26 2022-12-26 Outpatient PLABPA JELENA KNIGHT [id number] Jelena 09:00:00 09:00:00 Seybol d 2022-12-26 2022-12-26 Outpatient JELENA BYNUM [id number] Jelena 00:00:00 00:00:00 JENNIFER Seybol d 2022-12-26 2022-12-26 Outpatient JELENA MALHOTRA [id number] Jelena 00:00:00 00:00:00 BYRON Seybol d 2022-12-25 2022-12-25 Outpatient GAURAV PURVIS [id number] Jelena 00:00:00 00:00:00 Seybol d 2022-12-24 2022-12-24 Outpatient RUSLAN KNIGHT [id number] Jelena 11:30:00 11:30:00 Seybol d 2022-12-22 2022-12-22 Outpatient GAURAV PURVIS [id number] Jelena 09:00:00 09:00:00 Seybol d 2022-12-22 2022-12-22 Outpatient JELENA GARY [id number] Jelena 00:00:00 00:00:00 ROBYN Seybol d 2022-12-20 2022-12-20 Outpatient JELENA CRUZ [id number] Jelena 00:00:00 00:00:00 JALYN Seybol d 2022-12-19 2022-12-19 Outpatient JELENA MALHOTRA [id number] Jelena 00:00:00 00:00:00 BYRON Seybol d 2022-12-18 2022-12-18 Outpatient JELENA GARY [id number] Jelena 00:00:00 00:00:00 ROBYN Seybol d 2022-12-18 2022-12-18 Outpatient JELENA GARY [id number] Jelena 00:00:00 00:00:00 ROBYN Seybol d 2022-12-15 2022-12-15 Outpatient RUSSELL KNIGHT [id number] Jelena 00:00:00 00:00:00 MD ANKITA Seybol d 2022-12-15 2022-12-15 Outpatient JELENA MARTINEZ [id number] Jelena 00:00:00 00:00:00 MANOLO Seybol d 2022-12-15 2022-12-15 Outpatient CHON JELENA KNIGHT [id number] Jelena 00:00:00 00:00:00 GAUTAM Seybol d 2022-12-12 2022-12-12 Outpatient PATRANULFO JELENA KNIGHT [id number] Jelena 10:30:00 10:30:00 GAUTAM Seybol d 2022-12-12 2022-12-12 Outpatient JELENA KNIGHT [id number] Jelena 00:00:00 00:00:00 Seybol d 2022-12-12 2022-12-12 Outpatient PREZASJELENA [id number] Jelena 00:00:00 00:00:00 BYRON Seybol d 2022-12-11 2022-12-11 Outpatient PREZAS, JELENA KNIGHT [id number] Jelena 00:00:00 00:00:00 BYRON Seybol d 2022-12-08 2022-12-08 Outpatient JELENA MOMIN [id number] Jelena 10:40:00 10:40:00 JAROD Seybol d 2022-12-08 2022-12-08 Outpatient JELENA KNIGHT [id number] Jelena 10:25:00 10:25:00 Seybol d 2022-12-08 2022-12-08 Outpatient HYUNSIVADANDRE KNIGHT [id number] Jelena 08:30:00 08:30:00 Seybol d 2022-12-08 2022-12-08 Outpatient JELENA GARY [id number] Jelena 00:00:00 00:00:00 ROBYN Seybol d 2022-12-04 2022-12-04 Outpatient PREZAJELENA Umaña [id number] Jelena 00:00:00 00:00:00 BYRON Seybol d 2022-12-04 2022-12-04 Outpatient MERRILLJELENA AN [id number] Jelena 00:00:00 00:00:00 JAROD Seybol d 2022-12-04 2022-12-04 Outpatient JELENA KNIGHT [id number] Jelena 00:00:00 00:00:00 Seybol d 2022-12-04 2022-12-04 Outpatient COOKIE JELENA KNIGHT [id number] Jelena 00:00:00 00:00:00 ROBYN Seybol d 2022-12-01 2022-12-01 Outpatient COOKIE JELENA KNIGHT [id number] Jelena 00:00:00 00:00:00 ROBYN Seybol d 2022-11-27 2022-11-27 Outpatient PLVIVEK [id number] Jelena 10:30:00 10:30:00 Seybol d 2022-11-27 2022-11-27 Outpatient LIORJessica KNIGHT [id number] Jelena 00:00:00 00:00:00 MD ANKITA Seybol d 2022-11-27 2022-11-27 Outpatient BLANCALORETTAJessica KNIGHT 119 [id number] Jelena 00:00:00 00:00:00 MD ANKITA Seybol d 2022-11-21 2022-11-21 Outpatient JELENA GARY [id number] Jelena 00:00:00 00:00:00 ROBYN Seybol d 2022-11-20 2022-11-20 Outpatient SFA SFA [id number] Jarod 10:08:21 10:08:21 0323 F Lee 2022-11-19 2022-11-19 Outpatient COOKIE JELENA KNIGHT [id number] Jelena 00:00:00 00:00:00 ROBYN Seybol d 2022-11-14 2022-11-14 Outpatient JELENA GARY [id number] Jelena 00:00:00 00:00:00 ROBYN Seybol d 2022-11-14 2022-11-14 Outpatient JELENA KNIGHT [id number] Jelena 00:00:00 00:00:00 Seybol d 2022-11-11 2022-11-11 Outpatient JELENA GARY [id number] Jelena 00:00:00 00:00:00 ROBYN Seybol d 2022-11-07 2022-11-07 Outpatient JELENA VICK [id number] Jelena 00:00:00 00:00:00 DARLIN Guevaraybo ld 2022-11-07 2022-11-07 Outpatient NAVA JELENA KNIGHT [id number] Jelena 00:00:00 00:00:00 DARLIN Seybo ld 2022-11-07 2022-11-07 Outpatient NAVA JELENA KNIGHT [id number] Jelena 00:00:00 00:00:00 DARLIN Seybo ld 2022-11-07 2022-11-07 Outpatient NAVA JELENA KNIGHT [id number] Jelena 00:00:00 00:00:00 DARLIN Seybo ld 2022-11-07 2022-11-07 Outpatient FARIDAL, JELENA KNIGHT [id number] Jelena 00:00:00 00:00:00 ROBYN Seybol d 2022-11-07 2022-11-07 Outpatient HUNDL, JELENA KNIGHT [id number] Jelena 00:00:00 00:00:00 ROBYN Seybol d 2022-11-07 2022-11-07 Outpatient HUNDL, JELENA KNIGHT [id number] Jelena 00:00:00 00:00:00 ROBYN Seybol d 2022-11-07 2022-11-07 Outpatient HUNDL, JELENA KNIGHT [id number] Jelena 00:00:00 00:00:00 ROBYN Seybol d 2022-11-07 2022-11-07 Outpatient HUNDL, JELENA KNIGHT [id number] Jelena 00:00:00 00:00:00 ROBYN Seybol d 2022-11-07 2022-11-07 Outpatient HUNDL, JELENA KNIGHT [id number] Jelena 00:00:00 00:00:00 ROBYN Seybol d 2022-10-30 2022-10-30 Outpatient SFA SFA [id number] Jarod 08:26:44 08:26:44 0302 F Lee 2022-10-30 2022-10-30 Outpatient HUNDL, JELENA KNIGHT [id number] Jelena 00:00:00 00:00:00 ROBYN Seybol d 2022-10-29 2022-10-29 Outpatient HUNDL, JELENA KNIGHT [id number] Jelena 00:00:00 00:00:00 ROBYN Seybol d 2022-10-29 2022-10-29 Outpatient HUNDL, JELENA KNIGHT [id number] Jelena 00:00:00 00:00:00 ROBYN Seybol d 2022-10-29 2022-10-29 Outpatient COOKIE JELENA KNIGHT [id number] Jelena 00:00:00 00:00:00 ROBYN Seybol d 2022-10-29 2022-10-29 Outpatient NAVA JELENA KNIGHT [id number] Jelena 00:00:00 00:00:00 DARLIN Seybo ld 2022-10-28 2022-10-28 Outpatient LAB47 JELENA KNIGHT [id number] Jelena 09:45:00 09:45:00 Seybol d 2022-10-28 2022-10-28 Outpatient NAVA JELENA KNIGHT [id number] Jelena 09:00:00 09:00:00 DARLIN Seybo ld 2022-10-23 2022-10-23 Outpatient COOKIE JELENA KNIGHT [id number] Jelena 00:00:00 00:00:00 ROBYN Seybol d 2022-10-22 2022-10-22 Outpatient COOKIE JELENA KNIGHT [id number] Jelena 08:00:00 08:00:00 ROBYN Seybol d 2022-10-13 2022-10-13 Outpatient SFA [facility] [id number] Jarod 11:24:16 11:24:16 0213 F Lee 2022-10-10 2022-10-10 Outpatient LAB90 JELENA KNIGHT [id number] Jelena 09:25:00 09:25:00 Seybol d 2022-10-10 2022-10-10 Outpatient FARIDAL, JELENA KNIGHT [id number] Jelena 08:30:00 08:30:00 ROBYN Seybol d 2022-10-10 2022-10-10 Outpatient HUNDL, JELENA KNIGHT [id number] Jelena 00:00:00 00:00:00 ROBYN Seybol d 2022-10-09 2022-10-09 Outpatient FARIDALJELENA [id number] Jelena 08:30:00 08:30:00 ROBYN Seybol d 2022-10-09 2022-10-09 Outpatient HUNDL, JELENA KNIGHT [id number] Jelena 00:00:00 00:00:00 ROBYN Seybol d 2022-09-30 2022-09-30 Outpatient JELENA GARY JELENA [id number] Jelena 00:00:00 00:00:00 ROBYN Seybol d 2022-09-26 2022-09-26 Outpatient JELENA GARY JELENA [id number] Jelena 00:00:00 00:00:00 ROBYN Seybol d 2022-09-24 2022-09-24 Outpatient LAB90 JELENA JELENA [id number] Jelena 17:05:00 17:05:00 Seybol d 2022-09-24 2022-09-24 Outpatient JELENA GARY JELENA [id number] Jelena 11:00:00 11:00:00 ROBYN Seybol d 2022-09-22 2022-09-22 Outpatient SFA SFA [id number] Jarod 09:21:24 09:21:24 0123 F Lee 2022-09-22 2022-09-22 Outpatient JELENA GARY JELENA [id number] Jelena 00:00:00 00:00:00 ROBYN Seybol d 2022-09-17 2022-09-17 Outpatient JELENA GARY JELENA [id number] Jelena 00:00:00 00:00:00 ORBYN Seybol d 2022-09-12 2022-09-12 Outpatient JELENA GARY JELENA [id number] Jelena 00:00:00 00:00:00 ROBYN Seybol d 2022-09-11 2022-09-11 Outpatient JELENA GARY JELENA [id number] Jelena 00:00:00 00:00:00 ROBYN Seybol d 2022-09-10 2022-09-10 Outpatient SFA SFA [id number] Jarod 11:36:44 11:36:44 0111 F Lee 2022-09-10 2022-09-10 Outpatient [id number] v2ol7o-5 00:00:00 00:00:00 Visit 87da-47c3 7da-47c3-b -ao68-7k3 k20-6n8m1v [id number] 2022-09-09 2022-09-09 Outpatient LAB90 JELENA JELENA [id number] Jelena 09:30:00 09:30:00 Seybol d 2022-09-09 2022-09-09 Outpatient JELENA GARY JELENA [id number] Jelena 08:30:00 08:30:00 ROBYN Seybol tierra 2022-09-09 2022-09-09 Outpatient JELENA GARY JELENA [id number] Jelena 00:00:00 00:00:00 ROBYN Guevaraybol tierra 2022-09-04 2022-09-04 Outpatient SFA SFA [id number] Jarod 08:29:33 08:29:33 0105 F Lee 2022-09-04 2022-09-04 Outpatient [id number] 3f 62beff-3 00:00:00 00:00:00 Visit 6tt0-7yw9 bd9-4ec7-b -bbc8-d95 bc8-d957ab 4ys3b2022 [id number] 2022-08-28 2022-08-28 Outpatient SFA SFA [id number] Jarod 11:35:11 11:35:11 1229 F Lee 2022-08-28 2022-08-28 Outpatient [id number] 0d 007w12-0 00:00:00 00:00:00 Visit 010b-47c2 10b-47c2-b -c8m6-w92 5j6-n595s5 6c1738q7q 517b1b 2022-05-24 2022-05-24 [facility] [id number] 15:15:00 18:38:00 2381-551e 81-551e-843 36 -843c-ca8 c-my3x6747m m0730y3hm 5eb 2022-03-15 2022-03-15 Outpatient DAR[facility] [address] [place] 10:56:00 10:56:00 HANSlim 0716 da [facility] 2020-11-29 2020-11-29 Outpatient Gracia GRAFF [facility] [id number] Univers 15:30:00 15:30:00 ANNEMARIE pavithra o f [facility] 2020-10-23 2020-10-23 Telephone Bethany Delgadoteodora GALLEGOS 1.2.840.114 [id number] Univers 00:00:00 00:00:00 [facility] 350.1.13.10 [place] [id number] [facility] [address] 2020-10-23 2020-10-23 Telephone Alexandre Delgado ROSY 1.2.840.114 [id number] 00:00:00 00:00:00 [facility] 350.1.13.10 HEALTH 4.2.7.2.686 UNIT [id number] 2020-10-12 2020-10-12 Outpatient R TASH [facility] [id number] [facility] 09:00:00 09:00:00 SHEY arshad [facility] 2020-09-27 2020-09-27 Orders Doctor CONNER 1.2.840.114 [id number] Univers 00:00:00 00:00:00 Only Unassigned, LESLEY 350.1.13.10 ity of [facility] 4.2.7.2.686 Marvel as [phone] [facility] [address] 2020-09-27 2020-09-27 Orders Doctor CONNER 1.2.840.114 [id number] 00:00:00 00:00:00 Only Unassigned, LESLEY 350.1.13.10 [facility] 4.2.7.2.686 [id number] 009 2020-09-20 2020-09-20 Telephone [facility] 1.2.840.114 [id number] Univers 00:00:00 00:00:00 [facility] 350.1.13.10 it y of Surgical 4.2.7.2.686 Marvel as Specialti [phone] [facility] 198 [facility] 2020-09-20 2020-09-20 Telephone [facility] 1.2.840.114 [id number] 00:00:00 00:00:00 Shey [facility] 350.1.13.10 Surgical 4.2.7.2.686 Specialti [id number] es [address] [place] 2020-09-07 2020-09-07 Office [facility] 1.2.876.346 [id number] Univers 09:03:53 09:52:26 Visit Shey Lopez [facility] 350.1.13.10 it y of Surgical 4.2.7.2.686 Marvel as Specialti [id number] Me dical es 198 [facility] 2020-09-07 2020-09-07 Office [facility] 1.2.508.092 [id number] 09:03:53 09:52:26 Visit Shey [facility] 350.1.13.10 Surgical 4.2.7.2.686 Specialti [id number] es [address] [place] 2020-09-07 2020-09-07 [facility] [id number] Univers 09:00:00 09:00:00 [facility] 2020-08-30 2020-08-30 Outpatient R [facility] [id number] Univers 08:30:00 08:30:00 [facility] 2020-08-20 2020-08-20 [facility] 1.2.840.114 [id number] Univers 10:11:58 23:59:00 Encounter Health 350.1.13.10 [place] [phone] [place] [address] Branch ([facility]) 2020-08-20 2020-08-20 Outpatient R ALEXANDRE DELGADO [facility] [id number] Univers 10:11:58 23:59:00 ity of [facility] 2020-08-16 2020-08-16 [facility] 1.2.840.114 [id number] Univers 00:00:00 00:00:00 [facility] 350.1.13.10 it y of [place] 4.2.7.2.686 Marvel as Professio [phone] Me dical nal [address] 2020-08-02 2020-08-02 Office Care, Ang Primary [place] 1.2.840 .114 [id number] Univers 10:40:31 12:20:58 Visit Alexandre Delgado [facility] 350.1.13.10 it[place] [phone] [address] 2020-08-02 2020-08-02 [id number] Univers 10:30:00 10:30:00 ity of [facility] 2020-08-02 2020-08-02 Orders Doctor CONNER 1.2.840.114 [id number] Univers 00:00:00 00:00:00 Only Unassigned, LESLEY 350.1.13.10 [facility] 4.2.7.2.686 Marvel as [phone] [address] 2020-05-31 2020-05-31 Outpatient R BRIANDA [facility] [id number] Univers 08:50:00 08:50:00 ILIANA ity [facility] 2020-05-24 2020-05-[address] [facility] [id number] Univers 00:00:00 00:00:00 ity [facility] 2020-05-22 2020-05-22 [facility] [id number] Univers 09:50:00 09:50:00 ILIANA [facility] 2020-05-17 2020-05-21 Office Care, Ang Primary [place] 1.2.840 .114 [id number] Univers 11:05:31 09:49:52 Visit Alexandre Delgado [facility] 350.1.13.10 it[place] [id number] [address] 2020-05-21 2020-05-[address] [facility] [id number] Univers 00:00:00 00:00:00 ity [facility] 2020-05-17 2020-05-[address] [facility] [id number] Univers 10:30:00 10:30:00 ity of [facility] 2020-05-17 2020-05-17 Orders Doctor PRIETO 1.2.840.114 [id number] Univers 00:00:00 00:00:00 Only Unassigned, LESLEY 350.1.13.10 ity of [place] [facility] 4.2.7.2.686 Marvel as [phone] [facility] 009 Branch 2020-05-08 2020-05-08 Outpatient Gr[facility] [id number] Univers 08:30:00 08:30:00 ANNEMARIE pavithra o f [facility] 2020-05-08 2020-05-08 [facility] 1.2.840.114 [id number] Univers 07:05:41 07:35:41 ne Visit Annemarie AVILES 350.1.13.10 [place] [phone] Fl suman BYRD 072 [facility] 2020-05-01 2020-05-01 Outpatient Gracia [facility] [id number] Univers 09:30:00 09:30:00 ANNEMARIE klein gómez [facility] 2020-04-24 2020-04-24 Outpatient Gracia [facility] [id number] Univers 09:30:00 09:30:00 ANNEMARIE magaña [facility] 2020-03-08 2020-03-20 Office Care, Aries GALLEGOS 1.2.840 .114 [id number] Univers 10:02:59 09:15:53 Visit Sandy Alexandre ADDIE 350.1.13.10 [place] [phone] [facility] [address] 2020-03-16 2020-03-16 Hospital Alexandre Delgado [facility] 1.2.840.114 [id number] Univers 07:51:00 23:59:00 Encounter La[place] 350.1.13.10 [place] [phone] [facility] 807 Branch 2020-03-16 2020-03-16 Outpatient R [facility] [id number] Univers 00:00:00 00:00:00 ity of [facility] 2020-03-13 2020-03-13 Telephone Alexandre Delgado ROSY 1.2.840.114 [id number] Univers 00:00:00 00:00:00 [facility] 350.1.13.10 [place] [phone] [facility] 2020-03-08 2020-03-08 Outpatient R ALEXANDRE DELGADO [facility] [id number] Univers 10:00:00 10:00:00 ity of [facility] 2020-03-08 2020-03-08 Orders Doctor CONNER 1.2.840.114 [id number] Univers 00:00:00 00:00:00 Only Unassigned, LESLEY 350.1.13.10 ity of [place] [facility] 4.2.7.2.686 Marvel as [phone] [address] 2020-02-29 2020-02-29 Telephone Alexandre Delgado 1.2.840.114 [id number] Univers 00:00:00 00:00:00 [facility] 350.1.13.10 [place] [phone] [address] 2020-02-14 2020-02-14 [facility]phone [facility] [id number] [id number] Univers 00:00:00 00:00:00 Dannie Gaspar 350.1.13.10 [place] [phone] Fl dical [facility] 059 [facility] 2020-02-10 2020-02-10 Outpatient R [facility] [id number] Univers 09:00:00 09:00:00 ity of [facility] 2020-02-10 2020-02-10 Orders Doctor PRIETO 1.2.840.114 [id number] Univers 00:00:00 00:00:00 Only Unassigned, LESLEY 350.1.13.10 ity of [place] [facility] 4.2.7.2.686 Marvel as [phone] [address] 2020-01-24 2020-01-24 Outpatient [facility] [id number] Univers 10:40:00 10:40:00 DANNIE arshad o f [facility] 2020-01-24 2020-01-24 Telemedici [facility] 1.2.840.114 [id number] Univers 07:57:10 08:17:10 ne Visit Dannie Gaspar 350.1.13.10 [place] [phone] Fl dical nal 059 [facility] 2020-01-18 2020-01-18 Outpatient R [facility] [id number] Univers 13:00:00 13:00:00 ity of [facility] 2019-11-10 2019-11-10 Telephone Alexandre Delgado ROSY 1.2.840.114 [id number] Univers 00:00:00 00:00:00 [facility] HOSP[facility] 350.1.13.10 [id number] [address] 2019-11-03 2019-11-03 Outpatient R ALEXANDRE DELGADO [facility] [id number] Univers 08:15:00 08:15:00 ity of [facility] 2019-10-25 2019-10-25 [facility] 1.2.840.114 [id number] Univers 08:48:06 09:27:18 Visit Annemarie AVILES 350.1.13.10 [place] [phone] Fl lawrencenargis BYRD 072 [facility] 2019-10-25 2019-10-25 Outpatient R [facility] [id number] Univers 09:00:00 09:00:00 ANNEMARIE ity o f [facility] 2019-10-24 2019-10-24 Office [facility] 1.2.840.114 [id number] Univers 10:57:17 15:44:20 Visit Dannie Gaspar 350.1.13.10 [place] [phone] Fl dicnargis nal 059 [facility] 2019-10-24 2019-10-24 Outpatient R FERTRIHEALTH [id number] Univers 11:00:00 11:00:00 DANNIE ity o f [facility] 2019-09-29 2019-09-29 Office Care, Aries GALLEGOS 1.2.840 .114 [id number] Univers 10:38:08 11:16:42 Visit Alexandre Delgado [facility] 350.1.13.10 [place] [id number] [address] 2019-09-29 2019-09-29 Outpatient R ALEXANDRE DELGADO [facility] [id number] Univers 10:00:00 11:16:42 ity of [facility] 2019-09-14 2019-09-14 Telephone Alexandre Delgado 1.2.840.114 [id number] Univers 00:00:00 00:00:00 [facility] 350.1.13.10 [place] [id number] [address] 2019-09-08 2019-09-08 Orders Doctor CONNER 1.2.840.114 [id number] Univers 00:00:00 00:00:00 Only Unassigned, LESLEY 350.1.13.10 ity of [place] [facility] 4.2.7.2.686 Marvel as [id number] [address] 2019-05-05 2019-05-05 Telephone Alexandre Delgado 1.2.840.114 [id number] Univers 00:00:00 00:00:00 [facility] 350.1.13.10 [place] [id number] [address] 2019-04-28 2019-04-28 Office Care, [facility] Bob GALLEGOS 1.2.840 .114 [id number] [facility] 09:26:40 11:38:19 Visit Alexandre Delgado [facility] 350.1.13.10 [place] [id number] [address] 2019-04-28 2019-04-28 Orders Doctor CONNER 1.2.840.114 [id number] Univers 00:00:00 00:00:00 Only Unassigned, LESLEY 350.1.13.10 ity of [place] [facility] 4.2.7.2.686 [place] as [id number] [address] Results Test Description Test Time Test Comments Results Result Comments Source [facility], THIRD GENERATION 2022-09-11 04:08:38 Test Item Value Reference Range Interpretation Comme nts TSH, THIRD GENERATION (test 2.060 UIU/ML 0.400-4.100 UNLESS OTHERWISE INDICATED, code = 2821) ALL TESTING PER FORMED ATCLINICAL PATH [facility]LOGY [facility], [facility]. [address] [id number] CONNIE SCRATCHER: [place] AGUIRRE M.D. LAURA Fagan [id number] [place] [id number] COMPREHENSIVE METABOLIC [id number] 03:23:31 Test Item Value Reference Range Interpretation Comments GLUCOSE (test code = 80 MG/DL 70-99 2216) BUN (test code = 7 MG/DL 6-20 2207) CREATININE (test 0.55 MG/DL 0.60-1.30 L code = 2214) eGFR (2020 CKD-EPI) 127 >60 (test code = 78763) ML/MIN/1.73 CALC BUN/CREAT (test 13 RATIO 6-28 code = 2235) SODIUM (test code = 138 MEQ/L 825-881 3434) POTASSIUM (test code 3.9 MEQ/L 3.5-5.4 = 2227) CHLORIDE (test code 104 MEQ/L 95-107 = 2215) CARBON DIOXIDE (test 21 MEQ/L 19-31 code = 2206) CALCIUM (test [...] U/L 5-40 2219) CBC W/AUTO DIFF WITH [id number] 02:00:05 Test Item Value Reference Range Interpretation [...] RBCS 0.00 K/UL 0.00-0.11 (test code = 49199) CT/NG, NAAT, [id number] 20:52:50 Test Item Value Reference Range Interpretation Comments GONORRHEA, NAAT NEGATIVE NEGATIVE Note: Testi ng is (test code = 26179) performe d with Emili EDEL 6800/8800 systems using real-time polymerase cali n reaction (PCR) method. CHLAMYDIA, NAAT NEGATIVE NEGATIVE Note: Testi ng is (test code = 81749) performe d with Emili EDEL 6800/8800 systems using real-alanna e polymerase cali n reaction (PCR) method. HEPATITIS PANEL, [id number] 05:02:20 Test Item Value Reference Range Interpretation Comments HEPATITIS A IgM (test NON-REACTIVE NON-REACTIVE code = 92246) HEPATITIS B CORE IgM NON-REACTIVE NON-REACTIVE (test code = 4644) HEPATITIS B SURF AG NON-REACTIVE NON-REACTIVE (test code = 2739) HEPATITIS C ANTIBODY NON-REACTIVE NON-REACTIVE (test code = 4675) INTERPRETATION (NOTE) Hepatitis A HEPATITIS A: (test code sero logy shows no = 2552) evidence of acu te hepatitis A. INTERPRETATION (NOTE) Hepatitis B HEPATITIS B: (test code sero logy shows no = 59024) evidence of acu te hepatitis B and no indication of exposure to hepatitis B vir us in the previous alejandra eight months. INTERPRETATION (NOTE) Hepatitis C HEPATITIS C: (test code sero logy shows no = 03184) evidence of exposure to hepatitisC viru s at this time. I t can take up to 12 months after exposure tothe hepatitis C vir us for antibodies to become detectab le in the blood in certain patient s. HIV 1/2 4TH GEN, RFLX [id number] 05:02:20 Test Item Value Reference Range Interpretation Comments HIV 1/2 4TH GEN, NON-REACTIVE NON-REACTIVE UNLESS OTH ERWISE RFLX CONF (test INDICATED, A LL TESTING code = 3514) PERFORMED ATCLI NICAL PATHOLOGY LAB[facility] [employer] [address] [place] [id number] [facility] On Call DIRECTOR: [place] AGUIRRE M.D. CLIA NUMBER [id number] CAP ACCREDITATION N O. [id number] RPR REFLEX TO T. PALLIDUM - [id number] 04:28:08 Test Item Value Reference Range Interpretation Comments RPR (test code = 80243) NON-REACTIVE NON-REACTIVE RPR TITER (test code = 3500) NOT INDIC. TITER NOT INDIC. CT/NG, TMA, [id number] 00:00:00 Test Item Value Reference Range Interpretation Comments GONORRHEA, NAAT (test code = 63485) NEGATIVE CHLAMYDIA, NAAT (test code = 33674) NEGATIVE CT/NG, TMA, [id number] 00:00:00 Test Item Value Reference Range Interpretation Comments GONORRHEA, NAAT (test code = 37582) NEGATIVE CHLAMYDIA, NAAT (test code = 60984) NEGATIVE RPR REFLEX TO T. PALLIDUM - [id number] 00:00:00 Test Item Value Reference Range Interpretation Comments RPR (test code = 50197) NON-REACTIVE RPR TITER (test code = 3500) NOT INDIC. TITER RPR REFLEX TO T. PALLIDUM - [id number] 00:00:00 Test Item Value Reference Range Interpretation Comments RPR (test code = 20329) NON-REACTIVE RPR TITER (test code = 3500) NOT INDIC. TITER ACUTE HEPATITIS [id number] 00:00:00 Test Item Value Reference Range Interpretation Comments HEPATITIS A IgM (test code = NON-REACTIVE 53080) HEPATITIS B CORE IgM (test code NON-REACTIVE = 4644) HEPATITIS B SURF AG (test code = NON-REACTIVE 2739) HEPATITIS C ANTIBODY (test code NON-REACTIVE = 4675) INTERPRETATION HEPATITIS A: (NOTE) (test code = 2552) INTERPRETATION HEPATITIS B: (NOTE) (test code = 70153) INTERPRETATION HEPATITIS C: (NOTE) (test code = 25897) ACUTE HEPATITIS [id number] 00:00:00 Test Item Value Reference Range Interpretation Comments HEPATITIS A IgM (test code = NON-REACTIVE 61249) HEPATITIS B CORE IgM (test code NON-REACTIVE = 4644) HEPATITIS B SURF AG (test code = NON-REACTIVE 2739) HEPATITIS C ANTIBODY (test code NON-REACTIVE = 4675) INTERPRETATION HEPATITIS A: (NOTE) (test code = 2552) INTERPRETATION HEPATITIS B: (NOTE) (test code = 14360) INTERPRETATION HEPATITIS C: (NOTE) (test code = 20511) HIV 1/2 4TH GEN, RFLX [id number] 00:00:00 Test Item Value Reference Range Interpretation Comments HIV 1/2 4TH GEN, RFLX CONF (test NON-REACTIVE code = 3514) HIV 1/2 4TH GEN, RFLX [id number] 00:00:00 Test Item Value Reference Range Interpretation Comments HIV 1/2 4TH GEN, RFLX CONF (test NON-REACTIVE code = 3514) VITAMIN D, 25 [id number] 03:25:23 Test Item Value Reference Range Interpretation [...] ATED, ALL TESTING PERFORM ED ATCLINICAL PATH [facility] [place] [address] LABORATORY DIRE CTOR: Rebeca COBB. CLIA NUMBER [id number] CAP ACCREDITATION N O. [id number] HIV 1/2 4TH GEN, RFLX [id number] 03:00:39 Test Item Value Reference Range Interpretation Comments HIV 1/2 4TH GEN, RFLX CONF (test NON-REACTIVE NON-REACTIVE code = 3514) HIV AB/AG COMBO RFLX [id number] 00:00:00 Test Item Value Reference Range Interpretation Comments HIV 1/2 4TH GEN, RFLX CONF (test NON-REACTIVE code = 3514) HIV AB/AG COMBO RFLX [id number] 00:00:00 Test Item Value Reference Range Interpretation Comments HIV 1/2 4TH GEN, RFLX CONF (test NON-REACTIVE code = 3514) VITAMIN D, 25 [id number] 00:00:00 Test Item Value Reference Range Interpretation Comments VITAMIN D, 25 OH (test code = 4958) 27 NG/ML VITAMIN D, 25 [id number] 00:00:00 Test Item Value Reference Range Interpretation Comments VITAMIN D, 25 OH (test code = 4958) 27 NG/ML HIV AB/AG COMBO RFLX [id number] 00:00:00 Test Item Value Reference Range Interpretation Comments HIV 1/2 4TH GEN, RFLX CONF (test NON-REACTIVE code = 3514) HIV AB/AG COMBO RFLX [id number] 00:00:00 Test Item Value Reference Range Interpretation Comments HIV 1/2 4TH GEN, RFLX CONF (test NON-REACTIVE code = 3514) VITAMIN D, 25 [id number] 00:00:00 Test Item Value Reference Range Interpretation Comments VITAMIN D, 25 OH (test code = 4958) 27 NG/ML VITAMIN D, 25 [id number] 00:00:00 Test Item Value Reference Range Interpretation Comments VITAMIN D, 25 OH (test code = 4958) 27 NG/ML HIV AB/AG COMBO RFLX [id number] 00:00:00 Test Item Value Reference Range Interpretation Comments HIV 1/2 4TH GEN, RFLX CONF (test NON-REACTIVE code = 3514) HIV AB/AG COMBO RFLX [id number] 00:00:00 Test Item Value Reference Range Interpretation Comments HIV 1/2 4TH GEN, RFLX CONF (test NON-REACTIVE code = 3514) VITAMIN D, 25 [id number] 00:00:00 Test Item Value Reference Range Interpretation Comments VITAMIN D, 25 OH (test code = 4958) 27 NG/ML VITAMIN D, 25 [id number] 00:00:00 Test Item Value Reference Range Interpretation Comments VITAMIN D, 25 OH (test code = 4958) 27 NG/ML TSH, THIRD [id number] 00:19:50 Test Item Value Reference Range Interpretation Comments TSH, THIRD GENERATION (test code 1.090 UIU/ML 0.400-4.100 = 2821) [id number] 00:00:00 Test Item Value Reference Range Interpretation Comments TSH, THIRD GENERATION (test code 1.090 UIU/ML = 2821) [id number] 00:00:00 Test Item Value Reference Range Interpretation Comments TSH, THIRD GENERATION (test code 1.090 UIU/ML = 2821) [id number] 00:00:00 Test Item Value Reference Range Interpretation Comments TSH, THIRD GENERATION (test code 1.090 UIU/ML = 2821) [id number] 00:00:00 Test Item Value Reference Range Interpretation Comments TSH, THIRD GENERATION (test code 1.090 UIU/ML = 2821) [id number] 00:00:00 Test Item Value Reference Range Interpretation Comments TSH, THIRD GENERATION (test code 1.090 UIU/ML = 2821) [id number] 00:00:00 Test Item Value Reference Range Interpretation Comments TSH, THIRD GENERATION (test code 1.090 UIU/ML = 2821) [id number] 00:00:00 Test Item Value Reference Range Interpretation Comments TSH, THIRD GENERATION (test code 1.090 UIU/ML = 2821) [id number] 00:00:00 Test Item Value Reference Range Interpretation Comments TSH, THIRD GENERATION (test code 1.090 UIU/ML = 2821) [id number] 00:00:00 Test Item Value Reference Range Interpretation Comments TSH, THIRD GENERATION (test code 1.090 UIU/ML = 2821) LIPID [id number] 23:59:41 Test Item Value Reference Range Interpretation [...] MOREINFORMATION , SEE CLIENT ANNOUNCE MENT AT [email or web address] RISK RATIO LDL/HDL 1.79 RATIO <3.22 (test code = 2238) COMPREHENSIVE METABOLIC [id number] 23:59:41 Test Item Value Reference Range Interpretation Comments GLUCOSE (test code = 77 MG/DL 70-99 2216) BUN (test code = 8 MG/DL 6-20 2207) CREATININE (test 0.67 MG/DL 0.60-1.30 EFFECTIVE code = 2214) 08/12/2021, [facility] HAS IMPLEMENTED THE NKF-ASN RECOMME NDED KD-EPI EGF R REFIT CALCULATI ON THAT DOES NOT INCLUDE A COEFFICIENT FOR RACE. FOR MORE INFORMATION, SE E ANNOUNCEMENT [email or web address] eGFR (2020 CKD-EPI) 122 >60 (test code = 47180) ML/MIN/1.73 CALC BUN/CREAT (test 12 RATIO 6-28 code = 2235) SODIUM (test code = 141 MEQ/L 534-332 8789) POTASSIUM (test code 4.0 MEQ/L 3.5-5.4 = [...] PHOSPHATASE 56 U/L 40-112 (test code = 2204) AST (test code = 63 U/L 9-40 H 2217) ALT (test code = 92 U/L 5-40 H 2218) HEMOGLOBIN [id number] 03:14:31 Test Item Value Reference Range Interpretation Comments HEMOGLOBIN A1c (test code = 47672) 6.0 % 4.2-5.6 H CBC W/AUTO DIFF WITH [id number] 03:06:02 Test Item Value Reference Range Interpretation [...] RBCS 0.00 K/UL 0.00-0.11 (test code = 39865) CBC W/AUTO [id number] 00:00:00 Test Item Value Reference Range Interpretation [...] NUCLEATED RBCS (test code = 0.00 K/UL 48869) CBC W/AUTO [id number] 00:00:00 Test Item Value Reference Range Interpretation [...] NUCLEATED RBCS (test code = 0.00 K/UL 33495) CBC W/AUTO [id number] 00:00:00 Test Item Value Reference Range Interpretation [...] NUCLEATED RBCS (test code = 0.00 K/UL 51450) HEMOGLOBIN [id number] 00:00:00 Test Item Value Reference Range Interpretation Comments HEMOGLOBIN A1c (test code = 41926) 6.0 % HEMOGLOBIN [id number] 00:00:00 Test Item Value Reference Range Interpretation Comments HEMOGLOBIN A1c (test code = 30209) 6.0 % HEMOGLOBIN [id number] 00:00:00 Test Item Value Reference Range Interpretation Comments HEMOGLOBIN A1c (test code = 83704) 6.0 % LIPID [id number] 00:00:00 Test Item Value Reference Range Interpretation Comments CHOLESTEROL (test code = 2210) 124 MG/DL TRIGLYCERIDES (test code = 2232) 69 MG/DL HDL CHOLESTEROL (test code = 2220) 39 MG/DL CALC LDL CHOL (test code = 2237) 70 MG/DL RISK RATIO LDL/HDL (test code = 1.79 RATIO 2238) LIPID [id number] 00:00:00 Test Item Value Reference Range Interpretation Comments CHOLESTEROL (test code = 2210) 124 MG/DL TRIGLYCERIDES (test code = 2232) 69 MG/DL HDL CHOLESTEROL (test code = 2220) 39 MG/DL CALC LDL CHOL (test code = 2237) 70 MG/DL RISK RATIO LDL/HDL (test code = 1.79 RATIO 2238) COMPREHENSIVE METABOLIC [id number] 00:00:00 Test Item Value Reference Range Interpretation Comments GLUCOSE (test code = 2217) 77 MG/DL BUN (test code = 2208) 8 MG/DL CREATININE (test code = 2214) 0.67 MG/DL eGFR (2020 CKD-EPI) (test 122 ML/MIN/1.73 code = 44891) CALC BUN/CREAT (test code = 12 RATIO [...] code = 2219) 92 U/L COMPREHENSIVE METABOLIC [id number] 00:00:00 Test Item Value Reference Range Interpretation Comments GLUCOSE (test code = 2217) 77 MG/DL BUN (test code = 2208) 8 MG/DL CREATININE (test code = 2214) 0.67 MG/DL eGFR (2020 CKD-EPI) (test 122 ML/MIN/1.73 code = 98879) CALC BUN/CREAT (test code = 12 RATIO [...] code = 2219) 92 U/L CBC W/AUTO [id number] 00:00:00 Test Item Value Reference Range Interpretation [...] NUCLEATED RBCS (test code = 0.00 K/UL 68492) CBC W/AUTO [id number] 00:00:00 Test Item Value Reference Range Interpretation [...] NUCLEATED RBCS (test code = 0.00 K/UL 79675) CBC W/AUTO [id number] 00:00:00 Test Item Value Reference Range Interpretation [...] NUCLEATED RBCS (test code = 0.00 K/UL 12343) CBC W/AUTO [id number] 00:00:00 Test Item Value Reference Range Interpretation [...] NUCLEATED RBCS (test code = 0.00 K/UL 11712) HEMOGLOBIN [id number] 00:00:00 Test Item Value Reference Range Interpretation Comments HEMOGLOBIN A1c (test code = 18643) 6.0 % HEMOGLOBIN [id number] 00:00:00 Test Item Value Reference Range Interpretation Comments HEMOGLOBIN A1c (test code = 02546) 6.0 % HEMOGLOBIN [id number] 00:00:00 Test Item Value Reference Range Interpretation Comments HEMOGLOBIN A1c (test code = 59974) 6.0 % LIPID [id number] 00:00:00 Test Item Value Reference Range Interpretation Comments CHOLESTEROL (test code = 2210) 124 MG/DL TRIGLYCERIDES (test code = 2232) 69 MG/DL HDL CHOLESTEROL (test code = 2220) 39 MG/DL CALC LDL CHOL (test code = 2237) 70 MG/DL RISK RATIO LDL/HDL (test code = 1.79 RATIO 2238) LIPID [id number] 00:00:00 Test Item Value Reference Range Interpretation Comments CHOLESTEROL (test code = 2210) 124 MG/DL TRIGLYCERIDES (test code = 2232) 69 MG/DL HDL CHOLESTEROL (test code = 2220) 39 MG/DL CALC LDL CHOL (test code = 2237) 70 MG/DL RISK RATIO LDL/HDL (test code = 1.79 RATIO 2238) COMPREHENSIVE METABOLIC [id number] 00:00:00 Test Item Value Reference Range Interpretation Comments GLUCOSE (test code = 2217) 77 MG/DL BUN (test code = 2208) 8 MG/DL CREATININE (test code = 2214) 0.67 MG/DL eGFR (2020 CKD-EPI) (test 122 ML/MIN/1.73 code = 59021) CALC BUN/CREAT (test code = 12 RATIO [...] code = 2219) 92 U/L COMPREHENSIVE METABOLIC [id number] 00:00:00 Test Item Value Reference Range Interpretation Comments GLUCOSE (test code = 2217) 77 MG/DL BUN (test code = 2208) 8 MG/DL CREATININE (test code = 2214) 0.67 MG/DL eGFR (2020 CKD-EPI) (test 122 ML/MIN/1.73 code = 33804) CALC BUN/CREAT (test code = 12 RATIO [...] code = 2219) 92 U/L CBC W/AUTO [id number] 00:00:00 Test Item Value Reference Range Interpretation [...] NUCLEATED RBCS (test code = 0.00 K/UL 00197) CBC W/AUTO [id number] 00:00:00 Test Item Value Reference Range Interpretation [...] NUCLEATED RBCS (test code = 0.00 K/UL 76838) HEMOGLOBIN [id number] 00:00:00 Test Item Value Reference Range Interpretation Comments HEMOGLOBIN A1c (test code = 33369) 6.0 % HEMOGLOBIN [id number] 00:00:00 Test Item Value Reference Range Interpretation Comments HEMOGLOBIN A1c (test code = 46706) 6.0 % HEMOGLOBIN [id number] 00:00:00 Test Item Value Reference Range Interpretation Comments HEMOGLOBIN A1c (test code = 49153) 6.0 % LIPID [id number] 00:00:00 Test Item Value Reference Range Interpretation Comments CHOLESTEROL (test code = 2210) 124 MG/DL TRIGLYCERIDES (test code = 2232) 69 MG/DL HDL CHOLESTEROL (test code = 2220) 39 MG/DL CALC LDL CHOL (test code = 2237) 70 MG/DL RISK RATIO LDL/HDL (test code = 1.79 RATIO 2238) LIPID [id number] 00:00:00 Test Item Value Reference Range Interpretation Comments CHOLESTEROL (test code = 2210) 124 MG/DL TRIGLYCERIDES (test code = 2232) 69 MG/DL HDL CHOLESTEROL (test code = 2220) 39 MG/DL CALC LDL CHOL (test code = 2237) 70 MG/DL RISK RATIO LDL/HDL (test code = 1.79 RATIO 2238) COMPREHENSIVE METABOLIC [id number] 00:00:00 Test Item Value Reference Range Interpretation Comments GLUCOSE (test code = 2217) 77 MG/DL BUN (test code = 2208) 8 MG/DL CREATININE (test code = 2214) 0.67 MG/DL eGFR (2020 CKD-EPI) (test 122 ML/MIN/1.73 code = 89199) CALC BUN/CREAT (test code = 12 RATIO [...] code = 2219) 92 U/L COMPREHENSIVE METABOLIC [id number] 00:00:00 Test Item Value Reference Range Interpretation Comments GLUCOSE (test code = 2217) 77 MG/DL BUN (test code = 2208) 8 MG/DL CREATININE (test code = 2214) 0.67 MG/DL eGFR (2020 CKD-EPI) (test 122 ML/MIN/1.73 code = 88365) CALC BUN/CREAT (test code = 12 RATIO [...] 2219) 92 U/L MR KNEE LEFT WO [id number] 21:23:01 Stable MRI with lateral patellar subluxation [...] reviewed this study and agree with the abovereport.[facility] 2020-03-16 13:46:56 Large effusion. No fracture. EXAM: XR KNEE 3 VW LEFT HISTORY: new onset of instablity left knee with 2 falls in last 4 wks COMPARISON: None FINDINGS: Imaging of the left knee demonstrates a moderate si zed effusion. Alignmentis maintained. There is mild depression of the medial tibial plateau on thePAview. No fracture is appreciated. [facility], Radiant Results Inft User - 03/16/2020 8:48 AM CDTEXAM:XR KNEE 3 VW LEFTHISTORY:new onset of instablity left knee with 2 falls in last 4 wks COMPARISON:NoneFINDINGS: Imaging of the left knee demonstrates a moderate sized effusion. Alignmentis maintained. There is mild depression of the medial tibial plateau on thePA view. No fracture is appreciated.IMPRESSIONLarge effusion.No fracture.[facility] Temple[facility]CG, [id number] 00:00:00 Test Item Value Reference Range Interpretation Comments HCG, QUANTITATIVE (test code = <5 MIU/ML 2506) HCG, [id number] 00:00:00 Test Item Value Reference Range Interpretation Comments HCG, QUANTITATIVE (test code = <5 MIU/ML 2506) HCG, [id number] 00:00:00 Test Item Value Reference Range Interpretation Comments HCG, QUANTITATIVE (test code = <5 MIU/ML 2506) HCG, [id number] 00:00:00 Test Item Value Reference Range Interpretation Comments HCG, QUANTITATIVE (test code = <5 MIU/ML 2506) HCG, [id number] 00:00:00 Test Item Value Reference Range Interpretation Comments HCG, QUANTITATIVE (test code = <5 MIU/ML 2506) HCG, [id number] 00:00:00 Test Item Value Reference Range Interpretation Comments HCG, QUANTITATIVE (test code = <5 MIU/ML 2506) HCG, [id number] 00:00:00 Test Item Value Reference Range Interpretation Comments HCG, QUANTITATIVE (test code = <5 MIU/ML 2506) HCG, [id number] 00:00:00 Test Item Value Reference Range Interpretation Comments HCG, QUANTITATIVE (test code = <5 MIU/ML 2506) HCG, [id number] 00:00:00 Test Item Value Reference Range Interpretation Comments HCG, QUANTITATIVE (test code = <5 MIU/ML 2506) HCG, [id number] 00:00:00 Test Item Value Reference Range Interpretation Comments HCG, QUANTITATIVE (test TEST NOT PERFORMED code = 2506) MIU/ML HCG, [id number] 00:00:00 Test Item Value Reference Range Interpretation Comments HCG, QUANTITATIVE (test TEST NOT PERFORMED code = 2506) MIU/ML HCG, [id number] 00:00:00 Test Item Value Reference Range Interpretation Comments HCG, QUANTITATIVE (test TEST NOT PERFORMED code = 2506) MIU/ML HCG, [id number] 00:00:00 Test Item Value Reference Range Interpretation Comments HCG, QUANTITATIVE (test TEST NOT PERFORMED code = 2506) MIU/ML HCG, [id number] 00:00:00 Test Item Value Reference Range Interpretation Comments HCG, QUANTITATIVE (test TEST NOT PERFORMED code = 2506) MIU/ML HCG, [id number] 00:00:00 Test Item Value Reference Range Interpretation Comments HCG, QUANTITATIVE (test TEST NOT PERFORMED code = 2506) MIU/ML HCG, [id number] 00:00:00 Test Item Value Reference Range Interpretation Comments HCG, QUANTITATIVE (test TEST NOT PERFORMED code = 2506) MIU/ML HCG, [id number] 00:00:00 Test Item Value Reference Range Interpretation Comments HCG, QUANTITATIVE (test TEST NOT PERFORMED code = 2506) MIU/ML HCG, [id number] 00:00:00 Test Item Value Reference Range Interpretation Comments HCG, QUANTITATIVE (test TEST NOT PERFORMED code = 2506) MIU/ML CHLAMYDIA, AMPLIFIED, [id number] 00:00:00 Test Item Value Reference Range Interpretation Comments CHLAMYDIA, TMA (test code = 03076) NEGATIVE CHLAMYDIA, AMPLIFIED, [id number] 00:00:00 Test Item Value Reference Range Interpretation Comments CHLAMYDIA, TMA (test code = 44957) NEGATIVE GC, AMPLIFIED, [id number] 00:00:00 Test Item Value Reference Range Interpretation Comments GONORRHEA, TMA (test code = 81813) NEGATIVE GC, AMPLIFIED, [id number] 00:00:00 Test Item Value Reference Range Interpretation Comments GONORRHEA, TMA (test code = 18191) NEGATIVE CHLAMYDIA, AMPLIFIED, [id number] 00:00:00 Test Item Value Reference Range Interpretation Comments CHLAMYDIA, TMA (test code = 17299) NEGATIVE CHLAMYDIA, AMPLIFIED, [id number] 00:00:00 Test Item Value Reference Range Interpretation Comments CHLAMYDIA, TMA (test code = 95967) NEGATIVE GC, AMPLIFIED, [id number] 00:00:00 Test Item Value Reference Range Interpretation Comments GONORRHEA, TMA (test code = 65074) NEGATIVE GC, AMPLIFIED, [id number] 00:00:00 Test Item Value Reference Range Interpretation Comments GONORRHEA, TMA (test code = 69506) NEGATIVE CHLAMYDIA, AMPLIFIED, [id number] 00:00:00 Test Item Value Reference Range Interpretation Comments CHLAMYDIA, TMA (test code = 91100) NEGATIVE CHLAMYDIA, AMPLIFIED, [id number] 00:00:00 Test Item Value Reference Range Interpretation Comments CHLAMYDIA, TMA (test code = 32299) NEGATIVE GC, AMPLIFIED, [id number] 00:00:00 Test Item Value Reference Range Interpretation Comments GONORRHEA, TMA (test code = 32787) NEGATIVE GC, AMPLIFIED, [id number] 00:00:00 Test Item Value Reference Range Interpretation Comments GONORRHEA, TMA (test code = 87719) NEGATIVE HIV AB/AG COMBO RFLX [id number] 00:00:00 Test Item Value Reference Range Interpretation Comments HIV 1/2 4TH GEN, RFLX CONF (test NON-REACTIVE code = 3514) HIV AB/AG COMBO RFLX [id number] 00:00:00 Test Item Value Reference Range Interpretation Comments HIV 1/2 4TH GEN, RFLX CONF (test NON-REACTIVE code = 3514) ACUTE HEPATITIS [id number] 00:00:00 Test Item Value Reference Range Interpretation Comments HEPATITIS A IgM (test code = NON-REACTIVE 49904) HEPATITIS B CORE IgM (test code NON-REACTIVE = 4644) HEPATITIS B SURF AG (test code = NON-REACTIVE 2739) HEPATITIS C ANTIBODY (test code NON-REACTIVE = 4675) INTERPRETATION HEPATITIS A: (NOTE) (test code = 2552) INTERPRETATION HEPATITIS B: (NOTE) (test code = 66358) INTERPRETATION HEPATITIS C: (NOTE) (test code = 16522) ACUTE HEPATITIS [id number] 00:00:00 Test Item Value Reference Range Interpretation Comments HEPATITIS A IgM (test code = NON-REACTIVE 66944) HEPATITIS B CORE IgM (test code NON-REACTIVE = 4644) HEPATITIS B SURF AG (test code = NON-REACTIVE 2739) HEPATITIS C ANTIBODY (test code NON-REACTIVE = 4675) INTERPRETATION HEPATITIS A: (NOTE) (test code = 2552) INTERPRETATION HEPATITIS B: (NOTE) (test code = 94384) INTERPRETATION HEPATITIS C: (NOTE) (test code = 20869) [id number] 00:00:00 Test Item Value Reference Range Interpretation Comments RPR RESULT (test code = NON-REACTIVE 3501) RPR TITER (test code = 3500) NOT INDIC. TITER [id number] 00:00:00 Test Item Value Reference Range Interpretation Comments RPR RESULT (test code = NON-REACTIVE 3501) RPR TITER (test code = 3500) NOT INDIC. TITER [id number] 00:00:00 Test Item Value Reference Range Interpretation Comments RPR RESULT (test code = NON-REACTIVE 3501) RPR TITER (test code = 3500) NOT INDIC. TITER HIV AB/AG COMBO RFLX [id number] 00:00:00 Test Item Value Reference Range Interpretation Comments HIV 1/2 4TH GEN, RFLX CONF (test NON-REACTIVE code = 3514) HIV AB/AG COMBO RFLX [id number] 00:00:00 Test Item Value Reference Range Interpretation Comments HIV 1/2 4TH GEN, RFLX CONF (test NON-REACTIVE code = 3514) HIV AB/AG COMBO RFLX [id number] 00:00:00 Test Item Value Reference Range Interpretation Comments HIV 1/2 4TH GEN, RFLX CONF (test NON-REACTIVE code = 3514) ACUTE HEPATITIS [id number] 00:00:00 Test Item Value Reference Range Interpretation Comments HEPATITIS A IgM (test code = NON-REACTIVE 23748) HEPATITIS B CORE IgM (test code NON-REACTIVE = 4644) HEPATITIS B SURF AG (test code = NON-REACTIVE 2739) HEPATITIS C ANTIBODY (test code NON-REACTIVE = 4675) INTERPRETATION HEPATITIS A: (NOTE) (test code = 2552) INTERPRETATION HEPATITIS B: (NOTE) (test code = 17709) INTERPRETATION HEPATITIS C: (NOTE) (test code = 02367) ACUTE HEPATITIS [id number] 00:00:00 Test Item Value Reference Range Interpretation Comments HEPATITIS A IgM (test code = NON-REACTIVE 72144) HEPATITIS B CORE IgM (test code NON-REACTIVE = 4644) HEPATITIS B SURF AG (test code = NON-REACTIVE 2739) HEPATITIS C ANTIBODY (test code NON-REACTIVE = 4675) INTERPRETATION HEPATITIS A: (NOTE) (test code = 2552) INTERPRETATION HEPATITIS B: (NOTE) (test code = 95083) INTERPRETATION HEPATITIS C: (NOTE) (test code = 90054) [id number] 00:00:00 Test Item Value Reference Range Interpretation Comments RPR RESULT (test code = NON-REACTIVE 3501) RPR TITER (test code = 3500) NOT INDIC. TITER [id number] 00:00:00 Test Item Value Reference Range Interpretation Comments RPR RESULT (test code = NON-REACTIVE 3501) RPR TITER (test code = 3500) NOT INDIC. TITER [id number] 00:00:00 Test Item Value Reference Range Interpretation Comments RPR RESULT (test code = NON-REACTIVE 3501) RPR TITER (test code = 3500) NOT INDIC. TITER HIV AB/AG COMBO RFLX [id number] 00:00:00 Test Item Value Reference Range Interpretation Comments HIV 1/2 4TH GEN, RFLX CONF (test NON-REACTIVE code = 3514) ACUTE HEPATITIS [id number] 00:00:00 Test Item Value Reference Range Interpretation Comments HEPATITIS A IgM (test code = NON-REACTIVE 95753) HEPATITIS B CORE IgM (test code NON-REACTIVE = 4644) HEPATITIS B SURF AG (test code = NON-REACTIVE 2739) HEPATITIS C ANTIBODY (test code NON-REACTIVE = 4675) INTERPRETATION HEPATITIS A: (NOTE) (test code = 2552) INTERPRETATION HEPATITIS B: (NOTE) (test code = 45551) INTERPRETATION HEPATITIS C: (NOTE) (test code = 83365) ACUTE HEPATITIS [id number] 00:00:00 Test Item Value Reference Range Interpretation Comments HEPATITIS A IgM (test code = NON-REACTIVE 69174) HEPATITIS B CORE IgM (test code NON-REACTIVE = 4644) HEPATITIS B SURF AG (test code = NON-REACTIVE 2739) HEPATITIS C ANTIBODY (test code NON-REACTIVE = 4675) INTERPRETATION HEPATITIS A: (NOTE) (test code = 2552) INTERPRETATION HEPATITIS B: (NOTE) (test code = 92027) INTERPRETATION HEPATITIS C: (NOTE) (test code = 70410) [id number] 00:00:00 Test Item Value Reference Range Interpretation Comments RPR RESULT (test code = NON-REACTIVE 3501) RPR TITER (test code = 3500) NOT INDIC. TITER [id number] 00:00:00 Test Item Value Reference Range Interpretation Comments RPR RESULT (test code = NON-REACTIVE 3501) RPR TITER (test code = 3500) NOT INDIC. TITER [id number] 00:00:00 Test Item Value Reference Range Interpretation Comments RPR RESULT (test code = NON-REACTIVE 3501) RPR TITER (test code = 3500) NOT INDIC. TITER HIV AB/AG COMBO RFLX [id number] 00:00:00 Test Item Value Reference Range Interpretation Comments HIV 1/2 4TH GEN, RFLX CONF (test NON-REACTIVE code = 3514) HIV AB/AG COMBO RFLX [id number] 00:00:00 Test Item Value Reference Range Interpretation Comments HIV 1/2 4TH GEN, RFLX CONF (test NON-REACTIVE code = 3514) ACUTE HEPATITIS [id number] 00:00:00 Test Item Value Reference Range Interpretation Comments HEPATITIS A IgM (test code = NON-REACTIVE 77015) HEPATITIS B CORE IgM (test code NON-REACTIVE = 4644) HEPATITIS B SURF AG (test code = NON-REACTIVE 2739) HEPATITIS C ANTIBODY (test code NON-REACTIVE = 4675) HCV INDEX (test code = 46629) 0.13 INTERPRETATION HEPATITIS A: (NOTE) (test code = 2552) INTERPRETATION HEPATITIS B: (NOTE) (test code = 99847) INTERPRETATION HEPATITIS C: (NOTE) (test code = 51194) ACUTE HEPATITIS [id number] 00:00:00 Test Item Value Reference Range Interpretation Comments HEPATITIS A IgM (test code = NON-REACTIVE 90325) HEPATITIS B CORE IgM (test code NON-REACTIVE = 4644) HEPATITIS B SURF AG (test code = NON-REACTIVE 2739) HEPATITIS C ANTIBODY (test code NON-REACTIVE = 4675) HCV INDEX (test code = 65365) 0.13 INTERPRETATION HEPATITIS A: (NOTE) (test code = 2552) INTERPRETATION HEPATITIS B: (NOTE) (test code = 72750) INTERPRETATION HEPATITIS C: (NOTE) (test code = 30513) GC AND CHLAMYDIA, AMPLIFIED, [id number] 00:00:00 Test Item Value Reference Range Interpretation Comments GONORRHEA, TMA (test code = 74212) NEGATIVE CHLAMYDIA, TMA (test code = 32244) NEGATIVE GC AND CHLAMYDIA, AMPLIFIED, [id number] 00:00:00 Test Item Value Reference Range Interpretation Comments GONORRHEA, TMA (test code = 62838) NEGATIVE CHLAMYDIA, TMA (test code = 09945) NEGATIVE [id number] 00:00:00 Test Item Value Reference Range Interpretation Comments RPR RESULT (test code = NON-REACTIVE 3501) RPR TITER (test code = 3500) NOT INDIC. TITER [id number] 00:00:00 Test Item Value Reference Range Interpretation Comments RPR RESULT (test code = NON-REACTIVE 3501) RPR TITER (test code = 3500) NOT INDIC. TITER [id number] 00:00:00 Test Item Value Reference Range Interpretation Comments RPR RESULT (test code = NON-REACTIVE 3501) RPR TITER (test code = 3500) NOT INDIC. TITER HIV AB/AG COMBO RFLX [id number] 00:00:00 Test Item Value Reference Range Interpretation Comments HIV 1/2 4TH GEN, RFLX CONF (test NON-REACTIVE code = 3514) HIV AB/AG COMBO RFLX [id number] 00:00:00 Test Item Value Reference Range Interpretation Comments HIV 1/2 4TH GEN, RFLX CONF (test NON-REACTIVE code = 3514) HIV AB/AG COMBO RFLX [id number] 00:00:00 Test Item Value Reference Range Interpretation Comments HIV 1/2 4TH GEN, RFLX CONF (test NON-REACTIVE code = 3514) ACUTE HEPATITIS [id number] 00:00:00 Test Item Value Reference Range Interpretation Comments HEPATITIS A IgM (test code = NON-REACTIVE 20263) HEPATITIS B CORE IgM (test code NON-REACTIVE = 4644) HEPATITIS B SURF AG (test code = NON-REACTIVE 2739) HEPATITIS C ANTIBODY (test code NON-REACTIVE = 4675) HCV INDEX (test code = 14379) 0.13 INTERPRETATION HEPATITIS A: (NOTE) (test code = 2552) INTERPRETATION HEPATITIS B: (NOTE) (test code = 13039) INTERPRETATION HEPATITIS C: (NOTE) (test code = 49382) ACUTE HEPATITIS [id number] 00:00:00 Test Item Value Reference Range Interpretation Comments HEPATITIS A IgM (test code = NON-REACTIVE 79570) HEPATITIS B CORE IgM (test code NON-REACTIVE = 4644) HEPATITIS B SURF AG (test code = NON-REACTIVE 2739) HEPATITIS C ANTIBODY (test code NON-REACTIVE = 4675) HCV INDEX (test code = 07482) 0.13 INTERPRETATION HEPATITIS A: (NOTE) (test code = 2552) INTERPRETATION HEPATITIS B: (NOTE) (test code = 74833) INTERPRETATION HEPATITIS C: (NOTE) (test code = 64653) HIV AB/AG COMBO RFLX [id number] 00:00:00 Test Item Value Reference Range Interpretation Comments HIV 1/2 4TH GEN, RFLX CONF (test NON-REACTIVE code = 3514) GC AND CHLAMYDIA, AMPLIFIED, [id number] 00:00:00 Test Item Value Reference Range Interpretation Comments GONORRHEA, TMA (test code = 89135) NEGATIVE CHLAMYDIA, TMA (test code = 88265) NEGATIVE GC AND CHLAMYDIA, AMPLIFIED, [id number] 00:00:00 Test Item Value Reference Range Interpretation Comments GONORRHEA, TMA (test code = 15492) NEGATIVE CHLAMYDIA, TMA (test code = 16718) NEGATIVE [id number] 00:00:00 Test Item Value Reference Range Interpretation Comments RPR RESULT (test code = NON-REACTIVE 3501) RPR TITER (test code = 3500) NOT INDIC. TITER [id number] 00:00:00 Test Item Value Reference Range Interpretation Comments RPR RESULT (test code = NON-REACTIVE 3501) RPR TITER (test code = 3500) NOT INDIC. TITER [id number] 00:00:00 Test Item Value Reference Range Interpretation Comments RPR RESULT (test code = NON-REACTIVE 3501) RPR TITER (test code = 3500) NOT INDIC. TITER ACUTE HEPATITIS [id number] 00:00:00 Test Item Value Reference Range Interpretation Comments HEPATITIS A IgM (test code = NON-REACTIVE 52002) HEPATITIS B CORE IgM (test code NON-REACTIVE = 4644) HEPATITIS B SURF AG (test code = NON-REACTIVE 2739) HEPATITIS C ANTIBODY (test code NON-REACTIVE = 4675) HCV INDEX (test code = 21092) 0.13 INTERPRETATION HEPATITIS A: (NOTE) (test code = 2552) INTERPRETATION HEPATITIS B: (NOTE) (test code = 27179) INTERPRETATION HEPATITIS C: (NOTE) (test code = 87434) ACUTE HEPATITIS [id number] 00:00:00 Test Item Value Reference Range Interpretation Comments HEPATITIS A IgM (test code = NON-REACTIVE 25963) HEPATITIS B CORE IgM (test code NON-REACTIVE = 4644) HEPATITIS B SURF AG (test code = NON-REACTIVE 2739) HEPATITIS C ANTIBODY (test code NON-REACTIVE = 4675) HCV INDEX (test code = 23749) 0.13 INTERPRETATION HEPATITIS A: (NOTE) (test code = 2552) INTERPRETATION HEPATITIS B: (NOTE) (test code = 15034) INTERPRETATION HEPATITIS C: (NOTE) (test code = 87169) GC AND CHLAMYDIA, AMPLIFIED, [id number] 00:00:00 Test Item Value Reference Range Interpretation Comments GONORRHEA, TMA (test code = 35486) NEGATIVE CHLAMYDIA, TMA (test code = 26347) NEGATIVE GC AND CHLAMYDIA, AMPLIFIED, [id number] 00:00:00 Test Item Value Reference Range Interpretation Comments GONORRHEA, TMA (test code = 04858) NEGATIVE CHLAMYDIA, TMA (test code = 36355) NEGATIVE [id number] 00:00:00 Test Item Value Reference Range Interpretation Comments RPR RESULT (test code = NON-REACTIVE 3501) RPR TITER (test code = 3500) NOT INDIC. TITER [id number] 00:00:00 Test Item Value Reference Range Interpretation Comments RPR RESULT (test code = NON-REACTIVE 3501) RPR TITER (test code = 3500) NOT INDIC. TITER [id number] 00:00:00 Test Item Value Reference Range Interpretation Comments RPR RESULT (test code = NON-REACTIVE 3501) RPR TITER (test code = 3500) NOT INDIC. TITER [id number] 00:00:00 Test Item Value Reference Range Interpretation Comments RPR RESULT (test code = NON-REACTIVE 3501) RPR TITER (test code = 3500) NOT INDIC. TITER [id number] 00:00:00 Test Item Value Reference Range Interpretation Comments RPR RESULT (test code = NON-REACTIVE 3501) RPR TITER (test code = 3500) NOT INDIC. TITER [id number] 00:00:00 Test Item Value Reference Range Interpretation Comments RPR RESULT (test code = NON-REACTIVE 3501) RPR TITER (test code = 3500) NOT INDIC. TITER HIV AB/AG COMBO RFLX [id number] 00:00:00 Test Item Value Reference Range Interpretation Comments HIV 1/2 4TH GEN, RFLX CONF (test NON-REACTIVE code = 3514) HIV AB/AG COMBO RFLX [id number] 00:00:00 Test Item Value Reference Range Interpretation Comments HIV 1/2 4TH GEN, RFLX CONF (test NON-REACTIVE code = 3514) [id number] 00:00:00 Test Item Value Reference Range Interpretation Comments RPR RESULT (test code = NON-REACTIVE 3501) RPR TITER (test code = 3500) NOT INDIC. TITER [id number] 00:00:00 Test Item Value Reference Range Interpretation Comments RPR RESULT (test code = NON-REACTIVE 3501) RPR TITER (test code = 3500) NOT INDIC. TITER [id number] 00:00:00 Test Item Value Reference Range Interpretation Comments RPR RESULT (test code = NON-REACTIVE 3501) RPR TITER (test code = 3500) NOT INDIC. TITER [id number] 00:00:00 Test Item Value Reference Range Interpretation Comments RPR RESULT (test code = NON-REACTIVE 3501) RPR TITER (test code = 3500) NOT INDIC. TITER HIV AB/AG COMBO RFLX [id number] 00:00:00 Test Item Value Reference Range Interpretation Comments HIV 1/2 4TH GEN, RFLX CONF (test NON-REACTIVE code = 3514) HIV AB/AG COMBO RFLX [id number] 00:00:00 Test Item Value Reference Range Interpretation Comments HIV 1/2 4TH GEN, RFLX CONF (test NON-REACTIVE code = 3514) [id number] 00:00:00 Test Item Value Reference Range Interpretation Comments RPR RESULT (test code = NON-REACTIVE 3501) RPR TITER (test code = 3500) NOT INDIC. TITER [id number] 00:00:00 Test Item Value Reference Range Interpretation Comments RPR RESULT (test code = NON-REACTIVE 3501) RPR TITER (test code = 3500) NOT INDIC. TITER HIV AB/AG COMBO RFLX [id number] 00:00:00 Test Item Value Reference Range Interpretation Comments HIV 1/2 4TH GEN, RFLX CONF (test NON-REACTIVE code = 3514) HIV AB/AG COMBO RFLX [id number] 00:00:00 Test Item Value Reference Range Interpretation Comments HIV 1/2 4TH GEN, RFLX CONF (test NON-REACTIVE code = 3514) GC AND CHLAMYDIA, AMPLIFIED, [id number] 00:00:00 Test Item Value Reference Range Interpretation Comments GONORRHEA, TMA (test code = 78909) NEGATIVE CHLAMYDIA, TMA (test code = 02218) NEGATIVE GC AND CHLAMYDIA, AMPLIFIED, [id number] 00:00:00 Test Item Value Reference Range Interpretation Comments GONORRHEA, TMA (test code = 51592) NEGATIVE CHLAMYDIA, TMA (test code = 18433) NEGATIVE GC AND CHLAMYDIA, AMPLIFIED, [id number] 00:00:00 Test Item Value Reference Range Interpretation Comments GONORRHEA, TMA (test code = 37043) NEGATIVE CHLAMYDIA, TMA (test code = 62589) NEGATIVE GC AND CHLAMYDIA, AMPLIFIED, [id number] 00:00:00 Test Item Value Reference Range Interpretation Comments GONORRHEA, TMA (test code = 39326) NEGATIVE CHLAMYDIA, TMA (test code = 67779) NEGATIVE GC AND CHLAMYDIA, AMPLIFIED, [id number] 00:00:00 Test Item Value Reference Range Interpretation Comments GONORRHEA, TMA (test code = 53879) NEGATIVE CHLAMYDIA, TMA (test code = 32348) NEGATIVE GC AND CHLAMYDIA, AMPLIFIED, [id number] 00:00:00 Test Item Value Reference Range Interpretation Comments GONORRHEA, TMA (test code = 10363) NEGATIVE CHLAMYDIA, TMA (test code = 60224) NEGATIVE COMPREHENSIVE METABOLIC [id number] 00:00:00 Test Item Value Reference Range Interpretation Comments GLUCOSE (test code = 2217) 127 MG/DL BUN (test code = 2208) 5 MG/DL CREATININE (test code = 2214) 0.58 MG/DL eGFR AMER. (test code 148 ML/MIN/1.73 = 23515) eGFR NON- AMER. (test 128 ML/MIN/1.73 code = 98011) CALC BUN/CREAT (test code = 9 RATIO [...] code = 2219) 18 U/L COMPREHENSIVE METABOLIC [id number] 00:00:00 Test Item Value Reference Range Interpretation Comments GLUCOSE (test code = 2217) 127 MG/DL BUN (test code = 2208) 5 MG/DL CREATININE (test code = 2214) 0.58 MG/DL eGFR AMER. (test code 148 ML/MIN/1.73 = 57179) eGFR NON- AMER. (test 128 ML/MIN/1.73 code = 74487) CALC BUN/CREAT (test code = 9 RATIO [...] (test code = 2219) 18 U/L LIPID [id number] 00:00:00 Test Item Value Reference Range Interpretation Comments CHOLESTEROL (test code = 2210) 186 MG/DL TRIGLYCERIDES (test code = 2232) 106 MG/DL HDL CHOLESTEROL (test code = 2220) 54 MG/DL CALC LDL CHOL (test code = 2237) 111 MG/DL RISK RATIO LDL/HDL (test code = 2.05 RATIO 2238) LIPID [id number] 00:00:00 Test Item Value Reference Range Interpretation Comments CHOLESTEROL (test code = 2210) 186 MG/DL TRIGLYCERIDES (test code = 2232) 106 MG/DL HDL CHOLESTEROL (test code = 2220) 54 MG/DL CALC LDL CHOL (test code = 2237) 111 MG/DL RISK RATIO LDL/HDL (test code = 2.05 RATIO 2238) COMPREHENSIVE METABOLIC [id number] 00:00:00 Test Item Value Reference Range Interpretation Comments GLUCOSE (test code = 2217) 127 MG/DL BUN (test code = 2208) 5 MG/DL CREATININE (test code = 2214) 0.58 MG/DL eGFR AMER. (test code 148 ML/MIN/1.73 = 46181) eGFR NON- AMER. (test 128 ML/MIN/1.73 code = 91478) CALC BUN/CREAT (test code = 9 RATIO [...] code = 2219) 18 U/L COMPREHENSIVE METABOLIC [id number] 00:00:00 Test Item Value Reference Range Interpretation Comments GLUCOSE (test code = 2217) 127 MG/DL BUN (test code = 2208) 5 MG/DL CREATININE (test code = 2214) 0.58 MG/DL eGFR AMER. (test code 148 ML/MIN/1.73 = 12963) eGFR NON- AMER. (test 128 ML/MIN/1.73 code = 66426) CALC BUN/CREAT (test code = 9 RATIO [...] code = 2219) 18 U/L COMPREHENSIVE METABOLIC [id number] 00:00:00 Test Item Value Reference Range Interpretation Comments GLUCOSE (test code = 221) 127 MG/DL BUN (test code = 2208) 5 MG/DL CREATININE (test code = 2214) 0.58 MG/DL eGFR AMER. (test code 148 ML/MIN/1.73 = 50192) eGFR NON- AMER. (test 128 ML/MIN/1.73 code = 94850) CALC BUN/CREAT (test code = 9 RATIO [...] (test code = 2219) 18 U/L LIPID [id number] 00:00:00 Test Item Value Reference Range Interpretation Comments CHOLESTEROL (test code = 2210) 186 MG/DL TRIGLYCERIDES (test code = 2232) 106 MG/DL HDL CHOLESTEROL (test code = 2220) 54 MG/DL CALC LDL CHOL (test code = 2237) 111 MG/DL RISK RATIO LDL/HDL (test code = 2.05 RATIO 2238) LIPID [id number] 00:00:00 Test Item Value Reference Range Interpretation Comments CHOLESTEROL (test code = 2210) 186 MG/DL TRIGLYCERIDES (test code = 2232) 106 MG/DL HDL CHOLESTEROL (test code = 2220) 54 MG/DL CALC LDL CHOL (test code = 2237) 111 MG/DL RISK RATIO LDL/HDL (test code = 2.05 RATIO 2238) COMPREHENSIVE METABOLIC [id number] 00:00:00 Test Item Value Reference Range Interpretation Comments GLUCOSE (test code = 2217) 127 MG/DL BUN (test code = 2208) 5 MG/DL CREATININE (test code = 2214) 0.58 MG/DL eGFR AMER. (test code 148 ML/MIN/1.73 = 80403) eGFR NON- AMER. (test 128 ML/MIN/1.73 code = 45784) CALC BUN/CREAT (test code = 9 RATIO [...] (test code = 2219) 18 U/L LIPID [id number] 00:00:00 Test Item Value Reference Range Interpretation Comments CHOLESTEROL (test code = 2210) 186 MG/DL TRIGLYCERIDES (test code = 2232) 106 MG/DL HDL CHOLESTEROL (test code = 2220) 54 MG/DL CALC LDL CHOL (test code = 2237) 111 MG/DL RISK RATIO LDL/HDL (test code = 2.05 RATIO 2238) LIPID [id number] 00:00:00 Test Item Value Reference Range Interpretation Comments CHOLESTEROL (test code = 2210) 186 MG/DL TRIGLYCERIDES (test code = 2232) 106 MG/DL HDL CHOLESTEROL (test code = 2220) 54 MG/DL CALC LDL CHOL (test code = 2237) 111 MG/DL RISK RATIO LDL/HDL (test code = 2.05 RATIO 2238) GC AND CHLAMYDIA, AMPLIFIED, [id number] 00:00:00 Test Item Value Reference Range Interpretation Comments GONORRHEA, TMA (test code = 52768) NEGATIVE CHLAMYDIA, TMA (test code = 93002) NEGATIVE GC AND CHLAMYDIA, AMPLIFIED, [id number] 00:00:00 Test Item Value Reference Range Interpretation Comments GONORRHEA, TMA (test code = 26004) NEGATIVE CHLAMYDIA, TMA (test code = 36929) NEGATIVE GC AND CHLAMYDIA, AMPLIFIED, [id number] 00:00:00 Test Item Value Reference Range Interpretation Comments GONORRHEA, TMA (test code = 16891) NEGATIVE CHLAMYDIA, TMA (test code = 48609) NEGATIVE GC AND CHLAMYDIA, AMPLIFIED, [id number] 00:00:00 Test Item Value Reference Range Interpretation Comments GONORRHEA, TMA (test code = 38283) NEGATIVE CHLAMYDIA, TMA (test code = 74836) NEGATIVE GC AND CHLAMYDIA, AMPLIFIED, [id number] 00:00:00 Test Item Value Reference Range Interpretation Comments GONORRHEA, TMA (test code = 41739) NEGATIVE CHLAMYDIA, TMA (test code = 78366) NEGATIVE GC AND CHLAMYDIA, AMPLIFIED, [id number] 00:00:00 Test Item Value Reference Range Interpretation Comments GONORRHEA, TMA (test code = 02443) NEGATIVE CHLAMYDIA, TMA (test code = 81164) NEGATIVE VAGINAL PATHOGENS DNA [id number] 00:00:00 Test Item Value Reference Range Interpretation Comments YOKO SPECIES (test code = ) POSITIVE G. VAGINALIS (test code = ) NEGATIVE T. VAGINALIS (test code = ) NEGATIVE VAGINAL PATHOGENS DNA [id number] 00:00:00 Test Item Value Reference Range Interpretation Comments YOKO SPECIES (test code = ) POSITIVE G. VAGINALIS (test code = 94677) NEGATIVE T. VAGINALIS (test code = 77217) NEGATIVE VAGINAL PATHOGENS DNA [id number] 00:00:00 Test Item Value Reference Range Interpretation Comments YOKO SPECIES (test code = ) POSITIVE G. VAGINALIS (test code = 21119) NEGATIVE T. VAGINALIS (test code = 72186) NEGATIVE VAGINAL PATHOGENS DNA [id number] 00:00:00 Test Item Value Reference Range Interpretation Comments YOKO SPECIES (test code = 46351) POSITIVE G. VAGINALIS (test code = 34126) NEGATIVE T. VAGINALIS (test code = 84005) NEGATIVE VAGINAL PATHOGENS DNA [id number] 00:00:00 Test Item Value Reference Range Interpretation Comments YOKO SPECIES (test code = 71523) POSITIVE G. VAGINALIS (test code = 61332) NEGATIVE T. VAGINALIS (test code = 42501) NEGATIVE VAGINAL PATHOGENS DNA [id number] 00:00:00 Test Item Value Reference Range Interpretation Comments YOKO SPECIES (test code = ) POSITIVE G. VAGINALIS (test code = 85700) NEGATIVE T. VAGINALIS (test code = 03448) NEGATIVE GC AND CHLAMYDIA, AMPLIFIED, [id number] 00:00:00 Test Item Value Reference Range Interpretation Comments GONORRHEA, TMA (test code = 50454) NEGATIVE CHLAMYDIA, TMA (test code = 14714) NEGATIVE GC AND CHLAMYDIA, AMPLIFIED, [id number] 00:00:00 Test Item Value Reference Range Interpretation Comments GONORRHEA, TMA (test code = 15162) NEGATIVE CHLAMYDIA, TMA (test code = 78054) NEGATIVE GC AND CHLAMYDIA, AMPLIFIED, [id number] 00:00:00 Test Item Value Reference Range Interpretation Comments GONORRHEA, TMA (test code = 71026) NEGATIVE CHLAMYDIA, TMA (test code = 74738) NEGATIVE GC AND CHLAMYDIA, AMPLIFIED, [id number] 00:00:00 Test Item Value Reference Range Interpretation Comments GONORRHEA, TMA (test code = 89452) NEGATIVE CHLAMYDIA, TMA (test code = 06576) NEGATIVE GC AND CHLAMYDIA, AMPLIFIED, [id number] 00:00:00 Test Item Value Reference Range Interpretation Comments GONORRHEA, TMA (test code = 33287) NEGATIVE CHLAMYDIA, TMA (test code = 01582) NEGATIVE GC AND CHLAMYDIA, AMPLIFIED, [id number] 00:00:00 Test Item Value Reference Range Interpretation Comments GONORRHEA, TMA (test code = 47369) NEGATIVE CHLAMYDIA, TMA (test code = 17982) NEGATIVE CULTURE, [id number] 00:00:00 Test Item Value Reference Range Interpretation Comments CULTURE, URINE (test SPECIMEN NUMBER: code = 58365) [id number] CULTURE, [id number] 00:00:00 Test Item Value Reference Range Interpretation Comments CULTURE, URINE (test SPECIMEN NUMBER: code = 34778) [id number] CULTURE, [id number] 00:00:00 Test Item Value Reference Range Interpretation Comments CULTURE, URINE (test SPECIMEN NUMBER: code = 63866) [id number] CULTURE, [id number] 00:00:00 Test Item Value Reference Range Interpretation Comments CULTURE, URINE (test SPECIMEN NUMBER: code = 10424) [id number] CULTURE, [id number] 00:00:00 Test Item Value Reference Range Interpretation Comments CULTURE, URINE (test SPECIMEN NUMBER: code = 81049) [id number] CULTURE, [id number] 00:00:00 Test Item Value Reference Range Interpretation Comments CULTURE, URINE (test SPECIMEN NUMBER: code = 32690) [id number] HEMOGLOBIN [id number] 00:00:00 Test Item Value Reference Range Interpretation Comments HEMOGLOBIN A1c (test code = 65607) 5.5 % HEMOGLOBIN [id number] 00:00:00 Test Item Value Reference Range Interpretation Comments HEMOGLOBIN A1c (test code = 89309) 5.5 % HEMOGLOBIN [id number] 00:00:00 Test Item Value Reference Range Interpretation Comments HEMOGLOBIN A1c (test code = 66470) 5.5 % CBC W/AUTO [id number] 00:00:00 Test Item Value Reference Range Interpretation [...] code = 1015) 310 K/UL CBC W/AUTO [id number] 00:00:00 Test Item Value Reference Range Interpretation [...] code = 1015) 310 K/UL CBC W/AUTO [id number] 00:00:00 Test Item Value Reference Range Interpretation [...] code = 1015) 310 K/UL COMPREHENSIVE METABOLIC [id number] 00:00:00 Test Item Value Reference Range Interpretation Comments GLUCOSE (test code = 2217) 73 MG/DL BUN (test code = 2208) 10 MG/DL CREATININE (test code = 2214) 0.51 MG/DL eGFR AMER. (test code 158 ML/MIN/1.73 = 01776) eGFR NON- AMER. (test 136 ML/MIN/1.73 code = 60473) CALCULATED BUN/CREAT (test 20 RATIO code = [...] code = 2219) 23 U/L COMPREHENSIVE METABOLIC [id number] 00:00:00 Test Item Value Reference Range Interpretation Comments GLUCOSE (test code = 2217) 73 MG/DL BUN (test code = 2208) 10 MG/DL CREATININE (test code = 2214) 0.51 MG/DL eGFR AMER. (test code 158 ML/MIN/1.73 = 26625) eGFR NON- AMER. (test 136 ML/MIN/1.73 code = 81340) CALCULATED BUN/CREAT (test 20 RATIO code = [...] (test code = 2219) 23 U/L LIPID [id number] 00:00:00 Test Item Value Reference Range Interpretation Comments CHOLESTEROL (test code = 2210) 167 MG/DL TRIGLYCERIDES (test code = 2232) 109 MG/DL HDL CHOLESTEROL (test code = 2220) 58 MG/DL CALCULATED LDL CHOL (test code = 87 MG/DL 2237) RISK RATIO LDL/HDL (test code = 1.50 RATIO 2238) LIPID [id number] 00:00:00 Test Item Value Reference Range Interpretation [...] (test code = 2821) 1.5 UIU/ML HEMOGLOBIN [id number] 00:00:00 Test Item Value Reference Range Interpretation Comments HEMOGLOBIN A1c (test code = 53195) 5.5 % HEMOGLOBIN [id number] 00:00:00 Test Item Value Reference Range Interpretation Comments HEMOGLOBIN A1c (test code = 89346) 5.5 % HEMOGLOBIN [id number] 00:00:00 Test Item Value Reference Range Interpretation Comments HEMOGLOBIN A1c (test code = 44585) 5.5 % HEMOGLOBIN [id number] 00:00:00 Test Item Value Reference Range Interpretation Comments HEMOGLOBIN A1c (test code = 47470) 5.5 % HEMOGLOBIN [id number] 00:00:00 Test Item Value Reference Range Interpretation Comments HEMOGLOBIN A1c (test code = 18743) 5.5 % CBC W/AUTO [id number] 00:00:00 Test Item Value Reference Range Interpretation [...] code = 1015) 310 K/UL CBC W/AUTO [id number] 00:00:00 Test Item Value Reference Range Interpretation [...] code = 1015) 310 K/UL CBC W/AUTO [id number] 00:00:00 Test Item Value Reference Range Interpretation [...] code = 1015) 310 K/UL COMPREHENSIVE METABOLIC [id number] 00:00:00 Test Item Value Reference Range Interpretation Comments GLUCOSE (test code = 2217) 73 MG/DL BUN (test code = 2208) 10 MG/DL CREATININE (test code = 2214) 0.51 MG/DL eGFR AMER. (test code 158 ML/MIN/1.73 = 97198) eGFR NON- AMER. (test 136 ML/MIN/1.73 code = 02250) CALCULATED BUN/CREAT (test 20 RATIO code = [...] code = 2219) 23 U/L COMPREHENSIVE METABOLIC [id number] 00:00:00 Test Item Value Reference Range Interpretation Comments GLUCOSE (test code = 2217) 73 MG/DL BUN (test code = 2208) 10 MG/DL CREATININE (test code = 2214) 0.51 MG/DL eGFR AMER. (test code 158 ML/MIN/1.73 = 48737) eGFR NON- AMER. (test 136 ML/MIN/1.73 code = 94247) CALCULATED BUN/CREAT (test 20 RATIO code = [...] ALKALINE PHOSPHATASE (test 54 U/L code = 220) SGOT (AST) (test code = 2218) 21 U/L SGPT (ALT) (test code = 2219) 23 U/L LIPID [id number] 00:00:00 Test Item Value Reference Range Interpretation Comments CHOLESTEROL (test code = 2210) 167 MG/DL TRIGLYCERIDES (test code = 2232) 109 MG/DL HDL CHOLESTEROL (test code = 2220) 58 MG/DL CALCULATED LDL CHOL (test code = 87 MG/DL 2236) RISK RATIO LDL/HDL (test code = 1.50 RATIO 2238) LIPID [id number] 00:00:00 Test Item Value Reference Range Interpretation [...] (test code = 2821) 1.5 UIU/ML HEMOGLOBIN [id number] 00:00:00 Test Item Value Reference Range Interpretation Comments HEMOGLOBIN A1c (test code = 73398) 5.5 % CBC W/AUTO [id number] 00:00:00 Test Item Value Reference Range Interpretation [...] code = 1015) 310 K/UL CBC W/AUTO [id number] 00:00:00 Test Item Value Reference Range Interpretation [...] code = 1015) 310 K/UL CBC W/AUTO [id number] 00:00:00 Test Item Value Reference Range Interpretation [...] code = 1015) 310 K/UL COMPREHENSIVE METABOLIC [id number] 00:00:00 Test Item Value Reference Range Interpretation Comments GLUCOSE (test code = 2217) 73 MG/DL BUN (test code = 2208) 10 MG/DL CREATININE (test code = 2214) 0.51 MG/DL eGFR AMER. (test code 158 ML/MIN/1.73 = 33867) eGFR NON- AMER. (test 136 ML/MIN/1.73 code = 14520) CALCULATED BUN/CREAT (test 20 RATIO code = [...] code = 2219) 23 U/L COMPREHENSIVE METABOLIC [id number] 00:00:00 Test Item Value Reference Range Interpretation Comments GLUCOSE (test code = 2217) 73 MG/DL BUN (test code = 2208) 10 MG/DL CREATININE (test code = 2214) 0.51 MG/DL eGFR AMER. (test code 158 ML/MIN/1.73 = 35808) eGFR NON- AMER. (test 136 ML/MIN/1.73 code = 61364) CALCULATED BUN/CREAT (test 20 RATIO code = [...] (test code = 2219) 23 U/L LIPID [id number] 00:00:00 Test Item Value Reference Range Interpretation Comments CHOLESTEROL (test code = 2210) 167 MG/DL TRIGLYCERIDES (test code = 2232) 109 MG/DL HDL CHOLESTEROL (test code = 2220) 58 MG/DL CALCULATED LDL CHOL (test code = 87 MG/DL 2237) RISK RATIO LDL/HDL (test code = 1.50 RATIO 2238) LIPID [id number] 00:00:00 Test Item Value Reference Range Interpretation [...]
[2023-01-09 18:02] LABS: Absolute Lymphocytes (CBC) 2.4 K/uL (0.7-4.9); Hematocrit 34.5 % (36.0-45.0); Lymphocytes % 27.9 % (15.3-44.8); MCV 80.5 fL (80-100); MPV 8.2 fL (7.6-11.3); Protime INR 1.04; RBC Red Blood Cell Count 4.29 M/uL (3.86-4.86)
[2023-01-09] MEDS ORDERED: LORAZEPAM 1 MG TABLET ONE (18:10)
--- NOTE | 2023-01-09 18:23 | RAD REPORT ---
EXAM DESCRIPTION: CT - CTHCSPWOC - 01/09/2023 6:08 pm CLINICAL HISTORY: Trauma, head and neck injury. PAIN COMPARISON: Head C Spine Mpr Wo Con dated 12/08/2016 TECHNIQUE: Axial 5 mm thick images of the head were obtained. Axial 2 mm thick images of the cervical spine were obtained with sagittal and coronal reconstruction images generated and reviewed. All CT scans are performed using dose optimization technique as appropriate and may include automated exposure control or mA/KV adjustment according to patient size. FINDINGS: CT HEAD WITHOUT CONTRAST: No acute hemorrhage, hydrocephalus or extra-axial collection is identified.No areas of brain edema or midline shift. The paranasal sinuses and mastoids are clear.The calvarium is intact. CT CERVICAL SPINE WITHOUT CONTRAST: No fracture or subluxation.No prevertebral soft tissues swelling is identified. IMPRESSION: No acute intracranial or cervical spine findings.
[2023-01-09 18:27] LABS: ALT/SGPT 43 U/L (13-56); AST/SGOT 19 U/L (15-37); Albumin 3.2 g/dL (3.4-5.0); Alkaline Phosphatase 50 U/L (45-117); BUN Blood Urea Nitrogen 11 mg/dL (7-18); Bicarbonate 26 mEq/L (21-32); Bilirubin Total 0.2 mg/dL (0.2-1.0); Glomerular Filtration Rate 125 ml/min (=/>90); Glucose Level 99 mg/dL (74-106); Potassium 3.1 mEq/L (3.5-5.1); Protein, Total 7.6 g/dL (6.4-8.2); Sodium Level 138 mEq/L (136-145)
[2023-01-09 18:39] LABS: Bilirubin Direct < 0.1 mg/dL (0-0.2); Bilirubin Indirect, Calculated ND (0.2-0.8)
--- NOTE | 2023-01-09 19:09 | EDPHYS ---
Physician Documentation [facility] Name: Taylor Rodriguez Age: 27 yrs Sex: Female : 1995 Arrival Date: 01/09/2023 Time: 17:30 Bed 17 Private MD: ED Physician Chilango Boucher HPI: 01/09 19:28 This 27 yrs old Black Female presents to ER via EMS with complaints of bilateral leg kb pain, anxiety. 19:28 The patient presents to the emergency department with anxiety. Onset: The kb symptoms/episode began/occurred 3 day(s) ago. Associated signs and symptoms: Pertinent positives; anxiety. Severity of symptoms: At their worst the symptoms were moderate in the emergency department the symptoms are unchanged. The patient has experienced similar episodes in the past. The patient has been recently seen by a physician:. Pt reports she has had increased anxiety and a tingling from the back of her head down her neck and into her body for 3 days. Also c/o pain to bilateral lower extremities that she has had since childhood. Historical: - Allergies: 17:33 Naproxen; ap3 - PMHx: 17:33 Anxiety; Bipolar disorder; Chronic pain; Depression; Fibromyalgia; High Blood Pressure; ap3 Schizophrenia; Sleep Apnea; - Immunization history:: Client reports receiving the 2nd dose of the Covid vaccine. - Social history:: Smoking status: Patient denies any tobacco usage or history of. ROS: 19:23 Constitutional: Negative for fever, chills, and weight loss. kb 19:23 MS/extremity: Positive for pain, of the right leg and left leg. 19:23 Neuro: Positive for tingling, of the scalp. 19:23 Psych: Positive for anxiety. 19:23 All other systems are negative. Exam: 19:23 Constitutional: This is a well developed, well nourished patient who is awake, alert, kb and in no acute distress. Head/Face: Normocephalic, atraumatic. Eyes: Pupils equal round and reactive to light, extra-ocular motions intact. Lids and lashes normal. Conjunctiva and sclera are non-icteric and not injected. Cornea within normal limits. Periorbital areas with no swelling, redness, or edema. ENT: Moist Mucous membranes Cardiovascular: Regular rate and rhythm with a normal S1 and S2. No gallops, murmurs, or rubs. No pulse deficits. Respiratory: Respirations even and unlabored. No increased work of breathing. Talking in full sentences Abdomen/GI: Soft, non-tender. No distention Skin: Warm, dry with normal turgor. Normal color. MS/ Extremity: Pulses equal, no cyanosis. Neurovascular intact. Full, normal range of motion. Neuro: Awake and alert, GCS 15, oriented to person, place, time, and situation. Moves all extremities. Normal gait. 19:23 Psych: Behavior/mood is cooperative, anxious, Affect is animated, Oriented to person, place, time, Patient has no thoughts/intents to harm self or others. 22:23 ECG was reviewed by the Attending Physician. kb Vital Signs: 17:31 BP 153 / 97; Pulse 83; Resp 18; Temp 98.8; Pulse Ox 100% ; Weight 127.91 kg; Height 5 ap3 ft. 3 in. ; 17:52 BP 130 / 94; Pulse 89; Pulse Ox 98% on R/A; ap3 18:50 BP 143 / 92; Pulse 71; Pulse Ox 100% on R/A; ap3 19:29 BP 127 / 93; Pulse 81; Resp 18; Temp 97.5; Pulse Ox 97% on R/A; aa9 17:31 Body Mass Index 49.95 (127.91 kg, 160.02 cm) ap3 MDM: 17:32 Patient medically screened. kb 19:24 Differential diagnosis: anxiety, chronic pain, bipolar disorder. Data reviewed: vital kb signs, nurses notes. Historians other than the Patient: EMS: [facility]. Counseling: I had a detailed discussion with the patient and/or guardian regarding: the historical points, exam findings, and any diagnostic results supporting the discharge/admit diagnosis, lab results, radiology results, the need for outpatient follow up, a family practitioner, to return to the emergency department if symptoms worsen or persist or if there are any questions or concerns that arise at home. 01/09 17:37 Order name: Acetaminophen; Complete Time: 18:42 kb 01/09 17:37 Order name: Basic Metabolic Panel; Complete Time: 18:42 kb 01/09 17:37 Order name: CBC with Diff; Complete Time: 18:07 kb 01/09 17:37 Order name: ETOH Level; Complete Time: 18:42 kb 05/12 17:37 Order name: Hepatic Function; Complete Time: 18:42 kb 01/09 17:37 Order name: PT-INR; Complete Time: 18:07 kb 01/09 17:37 Order name: Ptt, Activated; Complete Time: 18:07 kb 01/09 17:37 Order name: Salicylate; Complete Time: 18:42 kb 01/09 17:37 Order name: CT Head C Spine; Complete Time: 18:34 kb 01/09 17:37 Order name: EKG; Complete Time: 17:37 kb 05 17:37 Order name: EKG - Nurse/Tech; Complete Time: 18:21 kb 01/09 17:37 Order name: IV Saline Lock; Complete Time: 17:51 kb 01/09 17:37 Order name: Labs collected and sent; Complete Time: 17:51 kb 01/09 17:37 Order name: Suicide Screening ([place]); Complete Time: 17:54 kb EC:23 Rate is 72 beats/min. Rhythm is regular. QRS [place] is Normal. AK interval is normal at kb 178 msec. QRS interval is normal at 80 msec. QT interval is normal at 433 msec. Administered Medications: 18:21 Drug: LORazepam PO 1 mg Route: PO; ap3 Disposition Summary: 01/09/23 19:08 Discharge Ordered Location: Home kb Condition: Stable kb Diagnosis - Chronic pain, not elsewhere classified kb - Anxiety disorder, unspecified kb Followup: kb - With: Emergency Department - When: As needed - Reason: Worsening of condition Followup: kb - With: Private Physician - When: 2 - 3 days - Reason: Recheck today's complaints, Continuance of care, Re-evaluation by your physician Discharge Instructions: - Discharge Summary Sheet kb - Panic Attack, [id number] kb - Generalized Anxiety Disorder, Adult kb Forms: - Medication Reconciliation Form kb - Thank You Letter kb - Antibiotic Education kb - Prescription Opioid Use kb Signatures: Dispatcher [employer] Zaynab Zarate FNP-C FNP-Ckb Prokisch, Amanda RN RN ap3 Corrections: (The following items were deleted from the chart) 17:34 17:33 PMHx: Schizophrenia; ap3 ap3
--- NOTE | 2023-01-09 19:09 | ER ---
Nurse's Notes [facility] Name: Taylor Rodriguez Age: 27 yrs Sex: Female : 1995 Arrival Date: 01/09/2023 Time: 17:30 Bed 17 Private MD: Diagnosis: Chronic pain, not elsewhere classified;Anxiety disorder, unspecified Presentation: 01/09 17:31 Chief complaint: Patient states: she has been having a warm feeling on her neck for ap3 approx 2 days. patient also complains of NEYMAR lower extremity pain and swelling. Coronavirus screen: At this time, the client does not indicate any symptoms associated with coronavirus-19. Ebola Screen: No symptoms or risks identified at this time. Initial Sepsis Screen: Does the patient meet any 2 criteria? No. Patient's initial sepsis screen is negative. Does the patient have a suspected source of infection? No. Patient's initial sepsis screen is negative. Risk Assessment: Do you want to hurt yourself or someone else? Patient reports no desire to harm self or others. Onset of symptoms was January 07, 2023. 17:31 Method Of Arrival: EMS: [facility] ap3 17:31 Acuity: MILAN 3 ap3 Triage Assessment: 17:34 General: Appears uncomfortable, Behavior is anxious. Pain: Complains of pain in right ap3 leg and left leg Pain began years ago. Neuro: Level of Consciousness is awake, alert, obeys commands, Oriented to person, place, time, situation. Cardiovascular: Patient's skin is warm and dry. Respiratory: Airway is patent Respiratory effort is even, unlabored, Respiratory pattern is regular, symmetrical. Musculoskeletal: Reports pain in right leg and left leg. Historical: - Allergies: 17:33 Naproxen; ap3 - PMHx: 17:33 Anxiety; Bipolar disorder; Chronic pain; Depression; Fibromyalgia; High Blood Pressure; ap3 Schizophrenia; Sleep Apnea; - Immunization history:: Client reports receiving the 2nd dose of the Covid vaccine. - Social history:: Smoking status: Patient denies any tobacco usage or history of. Screenin:34 Abuse screen: Denies threats or abuse. Nutritional screening: No deficits noted. ap3 Tuberculosis screening: No symptoms or risk factors identified. 19:29 [facility] ED Fall Risk Assessment (Adult) History of falling in the last 3 months, aa9 including since admission No falls in past 3 months (0 pts). Assessment: 17:53 General: patient denies any suicide or homicidal ideations at this time. . ap3 19:29 Reassessment: Patient appears in no apparent distress at this time. Patient and/or aa9 family updated on plan of care and expected duration. Pain level reassessed. Patient is alert, oriented x 3, equal unlabored respirations, skin warm/dry/pink. Vital Signs: 17:31 BP 153 / 97; Pulse 83; Resp 18; Temp 98.8; Pulse Ox 100% ; Weight 127.91 kg; Height 5 ap3 ft. 3 in. ; 17:52 BP 130 / 94; Pulse 89; Pulse Ox 98% on R/A; ap3 18:50 BP 143 / 92; Pulse 71; Pulse Ox 100% on R/A; ap3 19:29 BP 127 / 93; Pulse 81; Resp 18; Temp 97.5; Pulse Ox 97% on R/A; aa9 17:31 Body Mass Index 49.95 (127.91 kg, 160.02 cm) ap3 ED Course: 17:31 Patient arrived in ED. eb 17:31 Lynda Esquivel, RN is Primary Nurse. ap3 17:32 [facility] Fitch [facility]C [facility] kb 17:32 Chilango Boucher MD is Attending Physician. kb 17:33 Triage completed. ap3 17:34 Arm band placed on right wrist. ap3 17:35 Patient has correct armband on for positive identification. Bed in low position. Call ap3 light in reach. Side rails up X2. Pulse ox on. NIBP on. Door closed. Noise minimized. 17:51 Initial lab(s) drawn, by tn, sent to lab. Inserted saline lock: 20 gauge in right ap3 antecubital area, using aseptic technique. Blood collected. 18:10 CT Head C Spine In Process Unspecified. EDMS 18:21 EKG done, by ED staff, reviewed by Zaynab OROZCO. ap3 19:22 No provider procedures requiring assistance completed. IV discontinued, intact, aa9 bleeding controlled, No redness/swelling at site. Pressure dressing applied. Administered Medications: 18:21 Drug: LORazepam PO 1 mg Route: PO; ap3 Medication: 19:29 VIS not applicable for this client. aa9 Outcome: 19:08 Discharge ordered by MD. hartman 19:28 Discharged to home via wheelchair. aa9 19:28 Condition: stable 19:28 Discharge instructions given to patient, Instructed on discharge instructions, follow up and referral plans. 19:29 Patient left the ED. aa9 Signatures: Dispatcher [employer] EDZaynab Trinidad, Lynda Ken RN RN ap3 Lolly Vang Aylin, ROQUE RN aa9 Corrections: (The following items were deleted from the chart) 17:34 17:33 PMHx: Schizophrenia; ap3 ap3
[2023-01-09 20:16] VITALS: BP 127/93; TEMP 97.5; O2SAT 97
--- NOTE | 2023-01-11 14:46 | EKG ---
Test Date: 2023-01-09 Test Time: 18:17:01 Resource Recovery Specialist: ALP MEASUREMENT RESULTS: Intervals: Rate: 72 ME: 178 QRSD: 80 QT: 396 QTc: 433 [place]: P: 34 ME: 178 QRS: 30 T: 11 INTERPRETIVE STATEMENTS: Normal sinus rhythm Normal ECG Compared to ECG 12/25/2022 22:40:58 No significant changes Electronically Signed On 01-11-23 14:43:53 CDT by Parmjit Yepez
== END 2023-01-09 19:29 | disposition home or self-care (01) ==
LOC: ER 17:30
DX: G89.29 Other chronic pain (principal); F41.9 Anxiety disorder, unspecified
CPT/HCPCS: 93005; 85025; 80048; 36415; 85610; 80076; 85730; 70450; 72125; 99284; G0480 ×3

== ENCOUNTER 2023-01-26 15:17 | Emergency (ER) | payer OTHER ==
[2023-01-26] MEDS ORDERED: KETOROLAC 30 MG/ML INJ ONE (16:27)
[2023-01-26] MEDS ORDERED: NA CHLORIDE 0.9% 500 ML ONE (16:27)
[2023-01-26] MEDS ORDERED: METOCLOPRAMIDE 10 MG/2mL INJ ONE (16:27)
--- OUTSIDE RECORDS SUMMARY | 2023-01-26 16:39 | XMS REPORT | Continuity of Care Document ---
:1995 Author Organization [facility] [place] t Address [address] [place] [address] Care Team Providers Name Role Phone Roman YOUNG, [facility] Primary Care Physician [phone] DARLIN VICK Attending Clinician Unavailable SPENSER STOKES Attending Clinician Unavailable GAURAV PURVIS Attending Clinician Unavailable KEYONNA BRIONES Attending Clinician Unavailable ROBYN GARY Attending Clinician Unavailable BYRON MALHOTRA Attending Clinician Unavailable JAROD MOMIN Attending Clinician Unavailable PLABPA Attending Clinician Unavailable LAB90 Attending Clinician Unavailable JENNIFER BYNUM Attending Clinician Unavailable JALYN CRUZ Attending Clinician Unavailable MD ARAVIND Attending Clinician Unavailable MANOLO MARTINEZ Attending Clinician Unavailable GAUTAM GIVENS Attending Clinician Unavailable PL, TECH 1 Attending Clinician Unavailable LAB47 Attending Clinician Unavailable MARIANO Attending Clinician Unavailable ANNEMARIE GRAFF Attending Clinician Unavailable Alexandre Wick Attending Clinician SHEY BIANCHI Attending Clinician Unavailable Doctor Unassigned, [place] Attending Clinician Unavailable Shey Biacnhi MD Attending Clinician ALEXANDRE DELGADO Attending Clinician Unavailable Ian YOUNG, James Attending Clinician Care, [facility] Primary Attending Clinician Unavailable ILIANA LAMAR Attending Clinician Unavailable Annemarie Alexander Attending Clinician Dannie Botello MD Attending Clinician DANNIE BOTELLO Attending Clinician Unavailable MARIANO Admitting Clinician Unavailable ALEXANDRE DELGADO Admitting Clinician Unavailable Payers Payer Name Policy Type Policy Number Effective Date Expiration Date S [place] [employer] MP SILVER: 9 [id number] 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 9-14 ity of 00:00: [place] [facility] Manic Manic Disease Active Univers depression depression 9-14 it y of 00:00: [place] 00 Medical Branch Allergies, Adverse Reactions, Alerts [...] Active Univers ALLERGIE Class ity of [facility] Social History Social Habit Start Date Stop Date Quantity Comments Source Gender identity 2022-09-04 Identifies as Jelena Ibrahim - 10:33:35 male gender External (finding) Sexual orientation 2022-09-04 Jelena Seybold - 10:33:35 External Exposure to Not sure University of SARS-CoV-2 (event) [place] [facility] History of tobacco Cigarette Smoker Jelena Eatonmarcel - use External History SDOH Jelena jerzy ld - Alcohol Frequency Externa l History SDOH Jelena Umao ld - Alcohol Std Drinks Regulatory Affairs Intern al History SDOH Jelena Guevaratiffanyo ld - [...] Quit Universit y of 00:00:00 00:00:00 smoking/vaping [facility] earlier this year Branch Sex Assigned At [birth year] F Jelena Guevara ybold - 00:00:00 00:00:00 External Smoking Status Start Date Stop Date Source Occasional tobacco 2022-12-22 00:00:00 Jelena Guevara kale - smoker External Never smoked tobacco Jelena Guevaratiffany old - External Former smoker 2020-09-07 00:00:00 2020-09-07 [place] [facility] 00:00:00 Medical Branch Medications Ordered Filled Start Stop Current Ordering Indication Dosage Frequency Signature Comments Components Source Medication Medication Date Date Medication? Clinician (SIG) Name Name Trazodone 2022- No [id number] 100mg Take 1 Jelena HCl 100 MG 12-29 tablet Seybol d oral Tablet 11:10: 00:00 (100 mg - 14 :00 total) by Externa mouth at l bedtime Cyanocobala Yes Take by Emanuel y min 12-29 mouth Seybold (VITAMIN B 09:56: - 12 OR) 28 Externa l Tramadol Yes [id number] 50mg Q.25D Take 1 K elsey HCl 5-01 tablet (50 Seybold (ULTRAM) 50 00:00: mg total) - MG oral 00 by mouth Externa Tablet every 6 l hours as needed for pain hydrOXYzine Yes Jelena HCl 25 MG 4-26 Seybold oral Tablet 00:00: - 00 Externa l Trazodone 0 Yes [id number] 100mg Take 1 K elsey HCl 100 MG 4-24 tablet Seybold oral Tablet 08:55: (100 mg - 22 total) by Externa mouth at l bedtime Cyanocobala Yes Take by Emanuel sey min 4-24 mouth Seybold (VITAMIN B 08:55: - 12 OR) 22 Externa l Albuterol Yes [id number] 2{puff} Q.25D Inhale 2 Jelena HFA 108 (90 4-24 puffs into Se ybold Base) 00:00: the lungs - MCG/ACT IN 00 every 6 Regulatory Affairs Intern a AERS hours as l needed for wheezing or shortness of breath Meclizine Yes [id number] TAKE ONE Jelena HCl 25 MG 4-24 (1) Seybold oral Tablet 00:00: TABLET(S) - 00 BY MOUTH Externa THREE l TIMES A DAY NEEDED. Albuterol Yes [id number] 2{puff} Q.25D Inhale 2 Jelena HFA 108 (90 4-24 puffs into Se ybold [employer]) 00:00: the lungs - MCG/ACT IN 00 every 6 Regulatory Affairs Intern a AERS hours as l needed for wheezing or shortness of breath Cyclobenzap 0 Yes 10mg Q.[id number] Take 1 Jelena rine HCl 10 4-22 [id number] tablet (10 Seybold MG oral 00:00: 3D mg total) - Tablet 00 by mouth Externa every 8 l hours as needed Cyclobenzap 2022-0 Yes 10mg Q.[id number] Take 1 Jelena rine HCl 10 4-22 [id number] tablet (10 Seybold MG oral 00:00: 3D mg total) - Tablet 00 by mouth Externa every 8 l hours as needed Gabapentin 2022-0 Yes [id number] 100mg Take 1 Jelean 100 MG oral 4-20 capsule Seybo ld Capsule 00:00: (100 mg - 00 total) by Externa mouth 3 l times daily Gabapentin 3-0 Yes [id number] 100mg Take 1 Jelena 100 MG oral [...] Externa at bedtime l Trazodone 2022-0 Yes [id number] 100mg Take 1 K elsey HCl 100 MG 4-13 tablet Seybold oral Tablet 10:58: (100 mg - 09 total) by Externa mouth at l bedtime Cyanocobala 2022-0 Yes Take by Emanuel sey min 4-13 mouth Seybold (VITAMIN B 10:58: - 12 OR) 09 Externa l Trazodone 2022-0 Yes [id number] 100mg Take 1 K elsey HCl 100 MG 4-10 tablet Seybold oral Tablet 11:00: (100 mg - 07 total) by Externa mouth at l bedtime Cyanocobala 2022-0 Yes Take by Emanuel sey min 4-10 mouth Seybold (VITAMIN B 11:00: - 12 OR) 07 Externa l Propranolol 3-0 Yes [id number] TAKE ONE Jelena HCl 10 MG 4-10 (1) Seybold oral Tablet 00:00: TABLET(S) - 00 BY MOUTH Externa THREE l TIMES A DAY. Propranolol 2023-0 Yes [id number] TAKE ONE Jelena HCl 10 MG 4-10 [...] Release daily as needed Propranolol 3-0 Yes [id number] TAKE ONE Jelena HCl 10 MG 4-10 [...] Release daily as needed Meloxicam 2023-0 Yes [id number] 15mg Take 1 Jelena 15 MG oral 4-06 tablet (15 Sey bold Tablet 00:00: mg total) - 00 by mouth Externa daily l Meloxicam 2023-0 Yes [id number] 15mg Take 1 Jelena 15 MG oral 4-06 tablet (15 Sey bold Tablet 00:00: mg total) - 00 by mouth Externa daily l Meloxicam 2023-0 Yes [id number] 15mg Take 1 Jelena 15 MG oral 4-06 tablet (15 Sey bold Tablet 00:00: mg total) - 00 by mouth Externa daily l Meloxicam 2023-0 Yes [id number] 15mg Take 1 Jelena 15 MG oral [...] mouth l every morning Meclizine 2023-0 Yes [id number] TAKE ONE Jelena HCl 25 MG 3-24 (1) Seybold oral Tablet 00:00: TABLET(S) - 00 BY MOUTH Externa THREE l TIMES A DAY NEEDED. Meclizine 2023-0 Yes [id number] TAKE ONE Jelena HCl 25 MG 3-24 (1) Seybold oral Tablet 00:00: TABLET(S) - 00 BY MOUTH Externa THREE l TIMES A DAY NEEDED. Meclizine 2023-0 Yes [id number] TAKE ONE Jelena HCl 25 MG 3-24 (1) Seybold oral Tablet 00:00: TABLET(S) - 00 BY MOUTH Externa THREE l TIMES A DAY NEEDED. Losartan 2022-0 Yes [id number] 1{tbl} Take 1 K elsey Potassium-H 3-22 tablet by Sey bold CTZ 50-12.5 00:00: mouth - MG oral 00 daily Externa Tablet l Losartan 2022-0 Yes [id number] 1{tbl} Take 1 K elsey Potassium-H 3-22 tablet by Sey bold CTZ 50-12.5 00:00: mouth - MG oral 00 daily Externa Tablet l Losartan 2022-0 Yes [id number] 1{tbl} Take 1 K elsey Potassium-H 3-22 tablet by Sey bold CTZ 50-12.5 00:00: mouth - MG oral 00 daily Externa Tablet l Losartan 2022-0 Yes [id number] 1{tbl} Take 1 K elsey Potassium-H 3-22 tablet by SeDriveHQ bold CTZ 50-12.5 00:00: mouth - MG oral 00 daily Externa Tablet l Propranolol 2022-0 2022- No [id number] TAKE ONE Jelena HCl 10 MG 3-10 04-10 (1) Seybold oral Tablet 00:00: 00:00 TABLET(S) - 00 :00 BY MOUTH Externa THREE l TIMES A DAY. Cholecalcif 2022-0 2022- No [id number] 45412P Take 1 Jelena juan 1.25 3-02 04-10 capsule Seybol d MG ([id number] 00:00: 00:00 (50,000 - UT) oral 00 :00 units Externa Capsule total) by l mouth twice a week for 8 doses Trazodone 2022-0 Yes [id number] 100mg Take 100 Jelena HCl 100 MG [...] A l DAY. hydrOXYzine 2023-0 Yes 50mg Q.[id number] Take 1 Jelena HCl 50 MG 2-13 [id number] tablet (50 Seybold oral Tablet 00:00: 3D mg total) - 00 by mouth Externa every 8 l hours as needed hydrOXYzine 2023-0 Yes 50mg Q.[id number] Take 1 Jelena HCl 50 MG 2-13 [id number] tablet (50 Seybold oral Tablet 00:00: 3D mg total) - 00 by mouth Externa every 8 l hours as needed Losartan 2023-0 Yes [id number] 1{tbl} Take 1 K elsey Potassium-H 2-10 tablet by Lit romano CTZ 50-12.5 00:00: mouth - MG oral 00 daily Externa Tablet l Meclizine 2023-0 Yes [id number] 25mg Q.[id number] Take 1 Jelena HCl 25 MG 2-10 [id number] tablet (25 Seybold oral Tablet 00:00: 3D mg total) - 00 by mouth 3 Externa times l daily as needed Propranolol 2023-0 Yes [id number] 10mg Take 1 Jelena HCl 10 MG 2-10 tablet (10 Seyb old oral Tablet 00:00: mg total) - 00 by mouth 3 Externa times l daily Losartan 2023-0 Yes [id number] 1{tbl} Take 1 K elsey Potassium-H 2-10 tablet by Lit romano CTZ 50-12.5 00:00: mouth - MG oral 00 daily Externa Tablet l Meclizine 2022-0 Yes [id number] 25mg Q.[id number] Take 1 Jelena HCl 25 MG 2-10 [id number] tablet (25 Seybold oral Tablet 00:00: 3D mg total) - 00 by mouth 3 Externa times l daily as needed Propranolol 2022-0 Yes [id number] 10mg Take 1 Jelena HCl 10 MG 2-10 tablet (10 Seyb old oral Tablet 00:00: mg total) - 00 by mouth 3 Externa times l daily Doxycycline 2022-0 Yes [id number] 100mg Take 1 Jelena Hyclate 100 1-31 tablet Seybol d MG oral 00:00: (100 mg - Tablet 00 total) by Externa mouth 2 l times daily Doxycycline 2022-0 3- No [id number] 100mg Take 1 Jelena Hyclate 100 1-31 02-28 tablet Seybo ld MG oral 00:00: 00:00 (100 mg - Tablet 00 :00 total) by Externa mouth 2 l times daily Trulicity Yes [id number] .75mg Inject Jelena 0.75 1-28 0.75 mg Seybold MG/0.5ML 00:00: into the - subcutaneou 00 skin once Ext jonathan s Solution a week l Pen-injecto r Trulicity 2022- Yes [id number] .75mg Inject Jelena 0.75 1-28 0.75 mg Seybold MG/0.5ML 00:00: into the - subcutaneou 00 skin once Ext jonathan s Solution a week l Pen-injecto r Trulicity 2022-0 Yes [id number] .75mg Inject Jelena 0.75 1-28 0.75 mg Seybold MG/0.5ML 00:00: into the - subcutaneou 00 skin once Ext jonathan s Solution a week l Pen-injecto r Trulicity 2022-0 Yes [id number] .75mg Inject Jelena 0.75 1-28 0.75 mg Seybold MG/0.5ML 00:00: into the - subcutaneou 00 skin once Ext jonathan s Solution a week l Pen-injecto r Aripiprazol 2022- No Kelse y e 20 MG 1-25 01-25 Seybold oral Tablet 11:11: 00:00 - 39 :00 Externa l Aripiprazol 2022- No [id number] 10mg Take 10 mg Jelena e 10 MG 1-25 -25 by mouth 2 Seybo ld oral Tablet 11:11: 00:00 times - 26 :00 daily Externa l Trazodone Yes [id number] 100mg Take 100 Jelena HCl 100 MG 1-25 mg by Seybold oral Tablet 10:31: mouth at - 22 bedtime Externa l Cyanocobala Yes Take by Emanuel sey min 1-25 mouth Seybold (VITAMIN B 10:31: - 12 OR) 22 Externa l Trazodone Yes [id number] 100mg Take 100 Jelena HCl 100 MG 1-25 mg by Seybold oral Tablet 10:31: mouth at - 22 bedtime Externa l Cyanocobala Yes Take by Emanuel sey min 1-25 mouth Seybold (VITAMIN B 10:31: - 12 OR) 22 Externa l hydroCHLORO Yes [id number] 12.5mg Take 1 Jelena thiazide 1-25 capsule Seybold 12.5 MG 00:00: (12.5 mg - oral 00 total) by Externa Capsule mouth l daily Ondansetron Yes [id number] 4mg Q.[id number] Take 1 Jelena (ZOFRAN) 4 1-25 [id number] tablet (4 Seybold MG oral 00:00: 3D mg total) - TABLET 00 by mouth Externa DISPERSIBLE every 8 l hours as needed for nausea Tirzepatide Yes [id number] 2.5mg Inject 0.5 Jelena (Mounjaro) 1-25 mL (2.5 mg Sey bold 2.5 00:00: total) - MG/0.5ML 00 into the Externa subcutaneou skin once l s Solution a week Pen-injecto r Celecoxib Yes [id number] 200mg Take 1 Jelena (CeleBREX) 1-25 capsule Seybol d 200 MG oral 00:00: (200 mg - Capsule 00 total) by Externa mouth 2 l times daily Gabapentin 3-0 Yes [id number] 100mg Take 1 Jelena 100 MG oral 1-25 capsule Seybo ld Capsule 00:00: (100 mg - 00 total) by Externa mouth 3 l times daily Ondansetron 2023-0 Yes [id number] 4mg Q.[id number] Take 1 Jelena (ZOFRAN) 4 1-25 [id number] tablet (4 Seybold MG oral 00:00: 3D mg total) - TABLET 00 by mouth Externa DISPERSIBLE every 8 l hours as needed for nausea Celecoxib 3-0 Yes [id number] 200mg Take 1 Jelena (CeleBREX) 1-25 capsule Seybol d 200 MG oral 00:00: (200 mg - Capsule 00 total) by Externa mouth 2 l times daily Gabapentin 3-0 Yes [id number] 100mg Take 1 Jelena 100 MG oral 1-25 capsule Seybo ld Capsule 00:00: (100 mg - 00 total) by Externa mouth 3 l times daily Ondansetron 3-0 Yes [id number] 4mg Q.[id number] Take 1 Jelena (ZOFRAN) 4 1-25 [id number] tablet (4 Seybold MG oral 00:00: 3D mg total) - TABLET 00 by mouth Externa DISPERSIBLE every 8 l hours as needed for nausea Celecoxib 3-0 Yes [id number] 200mg Take 1 Jelena (CeleBREX) 1-25 capsule Seybol d 200 MG oral 00:00: (200 mg - Capsule 00 total) by Externa mouth 2 l times daily Gabapentin 3-0 Yes [id number] 100mg Take 1 Jelena 100 MG oral 1-25 capsule Seybo ld Capsule 00:00: (100 mg - 00 total) by Externa mouth 3 l times daily Ondansetron 2023-0 Yes [id number] 4mg Q.[id number] Take 1 Jelena (ZOFRAN) 4 1-25 [id number] tablet (4 Seybold MG oral 00:00: 3D mg total) - TABLET 00 by mouth Externa DISPERSIBLE every 8 l hours as needed for nausea Gabapentin 3-0 Yes [id number] 100mg Take 1 Jelena 100 MG oral 1-25 capsule Seybo ld Capsule 00:00: (100 mg - 00 total) by Externa mouth 3 l times daily Ondansetron 2022-0 Yes [id number] 4mg Q.[id number] Take 1 Jelena (ZOFRAN) 4 1-25 [id number] tablet (4 Seybold MG oral 00:00: 3D mg total) - TABLET 00 by mouth Externa DISPERSIBLE every 8 l hours as needed for nausea Gabapentin 2022-0 Yes [id number] 100mg Take 1 Jelena 100 MG oral 1-25 capsule Seybo ld Capsule 00:00: (100 mg - 00 total) by Externa mouth 3 l times daily Ondansetron 2022-0 Yes [id number] 4mg Q.[id number] Take 1 Jelena (ZOFRAN) 4 1-25 [id number] tablet (4 Seybold MG oral 00:00: 3D mg total) - TABLET 00 by mouth Externa DISPERSIBLE every 8 l hours as needed for nausea Ondansetron 2022-0 Yes [id number] 4mg Q.[id number] Take 1 Jelena (ZOFRAN) 4 -25 [id number] tablet (4 Seybold MG oral 00:00: 3D mg total) - TABLET 00 by mouth Externa DISPERSIBLE every 8 l hours as needed for nausea hydroCHLORO 2022-0 2022- No [id number] 12.5mg Take 1 Jelena thiazide 1-25 02-10 [...] Implant 00 Externa l Docusate 0 Yes [id number] 100mg Take 1 Ke lsey Sodium 1-13 capsule Seybold (Colace) 00:00: (100 mg - 100 MG oral 00 total) by Ext jonathan Capsule mouth l daily Ferrous Yes [id number] 325mg Take 1 Emanuel sey Sulfate 1-13 tablet Seybold (Iron) 325 00:00: (325 mg - (65 Fe) MG 00 total) by Exte rna oral Tablet mouth l daily (with breakfast) Docusate Yes [id number] 100mg Take 1 Ke lsey Sodium 1-13 capsule Seybold (Colace) 00:00: (100 mg - 100 MG oral 00 total) by Ext jonathan Capsule mouth l daily Ferrous Yes [id number] 325mg Take 1 Emanuel sey Sulfate 1-13 tablet Seybold (Iron) 325 00:00: (325 mg - (65 Fe) MG 00 total) by Exte rna oral Tablet mouth l daily (with breakfast) Docusate 0 Yes [id number] 100mg Take 1 Ke lsey Sodium 1-13 capsule Seybold (Colace) 00:00: (100 mg - 100 MG oral 00 total) by Ext jonathan Capsule mouth l daily Ferrous 0 Yes [id number] 325mg Take 1 Emanuel sey Sulfate 1-13 tablet Seybold (Iron) 325 00:00: (325 mg - (65 Fe) MG 00 total) by Exte rna oral Tablet mouth l daily (with breakfast) Docusate 0 Yes [id number] 100mg Take 1 Ke lsey Sodium 1-13 capsule Seybold (Colace) 00:00: (100 mg - 100 MG oral 00 total) by Ext jonathan Capsule mouth l daily Ferrous 0 Yes [id number] 325mg Take 1 Emanuel sey Sulfate 1-13 tablet Seybold (Iron) 325 00:00: (325 mg - (65 Fe) MG 00 total) by Exte rna oral Tablet mouth l daily (with breakfast) Docusate 2022-0 Yes [id number] 100mg Take 1 Ke lsey Sodium 1-13 capsule Seybold (Colace) 00:00: (100 mg - 100 MG oral 00 total) by Ext jonathan Capsule mouth l daily Ferrous 2022-0 Yes [id number] 325mg Take 1 Emanuel sey Sulfate 1-13 tablet Seybold (Iron) 325 00:00: (325 mg - (65 Fe) MG 00 total) by Exte rna oral Tablet mouth l daily (with breakfast) Docusate 2022-0 Yes [id number] 100mg Take 1 Ke lsey Sodium 1-13 capsule Seybold (Colace) 00:00: (100 mg - 100 MG oral 00 total) by Ext jonathan Capsule mouth l daily Ferrous 2022-0 Yes [id number] 325mg Take 1 Emanuel sey Sulfate 1-13 tablet Seybold (Iron) 325 00:00: (325 mg - (65 Fe) MG 00 total) by Exte rna oral Tablet mouth l daily (with breakfast) Docusate 2022-0 Yes [id number] 100mg Take 1 Ke lsey Sodium 1-13 capsule Seybold (Colace) 00:00: (100 mg - 100 MG oral 00 total) by Ext jonathan Capsule mouth l daily Ferrous 2022-0 Yes [id number] 325mg Take 1 Emanuel sey Sulfate 1-13 tablet Seybold (Iron) 325 00:00: (325 mg - (65 Fe) MG 00 total) by Exte rna oral Tablet mouth l daily (with breakfast) Nitrofurant 2022-0 2022- No [id number] 100mg Take 1 Jelena oin Monohyd 1-13 [...] 1-11 00:00: 00 LYRICA 150 2019-08 Yes [id number] Take 1 Univers mg capsule 2-21 capsule by ity of 00:00: mouth [place] 00 twice a Medical day for Branch neuropathi c pain as directed by physician. LYRICA 150 2019-08 Yes [id number] Take 1 Univers mg capsule 2-21 capsule by ity of 00:00: mouth [place] 00 twice a Medical day for Branch neuropathi c pain as directed by physician. LYRICA 150 2019-08 Yes [id number] Take 1 Univers mg capsule 2-21 capsule by ity of 00:00: mouth [place] 00 twice a Medical day for Branch neuropathi c pain as directed by physician. LYRICA 150 2019-08 Yes [id number] Take 1 Univers mg capsule 2-21 capsule by ity of 00:00: mouth [place] 00 twice a Medical day for Branch neuropathi c pain as directed by physician. LYRICA 150 2019-08 Yes [id number] Take 1 Univers mg capsule 2-21 capsule by ity of 00:00: mouth [place] 00 twice a Medical day for Branch neuropathi c pain as directed by physician. LYRICA 150 2019- Yes [id number] Take 1 Univers mg capsule 2-21 capsule by ity of 00:00: mouth [place] 00 twice a Medical day for Branch neuropathi c pain as directed by physician. LYRICA 150 2019- Yes [id number] Take 1 Univers mg capsule 2-21 capsule [...] :00 times Medical daily. Branch ofloxacin Yes [id number] 5[drp] Place 5 Univers 0.3 % otic 05-17 [id number] Drops in ity of drops 00:00: both ears [place] 00 3 (three) Medical times Branch daily. ofloxacin 2019-0 Yes [id number] 5[drp] Place 5 Univers 0.3 % otic 9-17 [id number] Drops in ity of drops 00:00: both ears [place] 00 3 (three) Medical times Branch daily. ofloxacin 2020-0 Yes [id number] 5[drp] Place 5 Univers 0.3 % otic 9-17 [id number] Drops in ity of drops 00:00: both ears [place] 00 3 (three) Medical times Branch daily. ofloxacin 2020-0 Yes [id number] 5[drp] Place 5 Univers 0.3 % otic 9-17 [id number] Drops in ity of drops 00:00: both ears [place] 00 3 (three) Medical times Branch daily. ofloxacin 2020-0 Yes [id number] 5[drp] Place 5 Univers 0.3 % otic 9-17 [id number] Drops in ity of drops 00:00: both ears [place] 00 3 (three) Medical times Branch daily. ofloxacin 2020-0 Yes [id number] 5[drp] Place 5 Univers 0.3 % otic 9-17 [id number] Drops in ity of drops 00:00: both ears [place] 00 3 (three) Medical times Branch daily. ofloxacin 2020-0 Yes [id number] 5[drp] Place 5 Univers 0.3 % otic 9-17 [id number] Drops in ity of drops 00:00: both ears [place] 00 3 (three) Medical times Branch daily. ofloxacin 2020-0 Yes [id number] 5[drp] Place 5 Univers 0.3 % otic 9-17 [id number] Drops in ity of drops 00:00: both ears [place] 00 3 (three) Medical times Branch daily. ofloxacin 2020-0 Yes [id number] 5[drp] Place 5 Univers 0.3 % otic 9-17 [id number] Drops in ity of drops 00:00: both ears [place] 00 3 (three) Medical times Branch daily. ofloxacin 2020-0 Yes [id number] 5[drp] Place 5 Univers 0.3 % otic 9-17 [id number] Drops in ity of drops 00:00: both ears [place] 00 3 (three) Medical times Branch daily. ofloxacin 2020-0 Yes [id number] 5[drp] Place 5 Univers 0.3 % otic 9-17 [id number] Drops in ity of drops 00:00: both ears [place] 00 3 (three) Medical times Branch daily. ofloxacin 2020-0 Yes [id number] 5[drp] Place 5 Univers 0.3 % otic 9-17 [id number] Drops in ity of drops 00:00: both ears [place] 00 3 (three) Medical times Branch daily. ofloxacin 2020-0 Yes [id number] 5[drp] Place 5 Univers 0.3 % otic 9-17 [id number] Drops in ity of drops 00:00: both ears [place] 00 3 (three) Medical times Branch daily. ofloxacin 2020-0 Yes [id number] 5[drp] Place 5 Univers 0.3 % otic 9-17 [id number] Drops in ity of drops 00:00: both ears [place] 00 3 (three) Medical times Branch daily. ofloxacin 2020-0 Yes [id number] 5[drp] Place 5 Univers 0.3 % otic 9-17 [id number] Drops in ity of drops 00:00: both [...] Indication s: acute pain metoprolol 2020-0 Yes [id number] 50mg Take 1 Un nneka succinate 7-09 tablet by ity o f XL 50 mg 24 00:00: mouth [place] hr tablet 00 daily. Medical Branch hydroCHLORO 2020-0 Yes [id number] 25mg Take 1 Univers thiazide 25 7-09 tablet by ity of mg tablet 00:00: mouth [place] 00 daily. Medical Branch baclofen 10 2020-0 Yes [id number] 10mg Take 1 Univers mg tablet [id number] tablet by ity of 00:00: mouth 3 [place] 00 (three) Medical times Branch daily as needed for Pain (scale 4-6). metoprolol 2020-0 Yes [id number] 50mg Take 1 Un nneka succinate 7-09 tablet by ity o f XL 50 mg 24 00:00: mouth [place] hr tablet 00 daily. Medical Branch hydroCHLORO 2020-0 Yes [id number] 25mg Take 1 Univers thiazide 25 7-09 tablet by ity of mg tablet 00:00: mouth [place] 00 daily. Medical Branch baclofen 10 2020-0 Yes [id number] 10mg Take 1 Univers mg tablet 03-08 [id number] tablet by ity of 00:00: mouth 3 [place] 00 (three) Medical times Branch daily as needed for Pain (scale 4-6). metoprolol 2020-0 Yes [id number] 50mg Take 1 Un nneka succinate 7-09 tablet by ity o f XL 50 mg 24 00:00: mouth [place] hr tablet 00 daily. Medical Branch hydroCHLORO 2020-0 Yes [id number] 25mg Take 1 Univers thiazide 25 7-09 tablet by ity of mg tablet 00:00: mouth [place] 00 daily. Medical Branch baclofen 10 2020-0 Yes [id number] 10mg Take 1 Univers mg tablet [id number] tablet by ity of 00:00: mouth 3 [place] 00 (three) Medical times Branch daily as needed for Pain (scale 4-6). metoprolol 2020-0 Yes [id number] 50mg Take 1 Un nneka succinate 7-09 tablet by ity o f XL 50 mg 24 00:00: mouth [place] hr tablet 00 daily. Medical Branch hydroCHLORO 2020-0 Yes [id number] 25mg Take 1 Univers thiazide 25 7-09 tablet by ity of mg tablet 00:00: mouth [place] 00 daily. Medical Branch baclofen 10 2020-0 Yes [id number] 10mg Take 1 Univers mg tablet 7 [id number] tablet by ity of 00:00: mouth 3 [place] 00 (three) Medical times Branch daily as needed for Pain (scale 4-6). metoprolol 2020-0 Yes [id number] 50mg Take 1 Un nneka succinate 7-09 tablet by ity o f XL 50 mg 24 00:00: mouth [place] hr tablet 00 daily. Medical Branch hydroCHLORO 2020-0 Yes [id number] 25mg Take 1 Univers thiazide 25 7-09 tablet by ity of mg tablet 00:00: mouth [place] 00 daily. Medical Branch baclofen 10 2020-0 Yes [id number] 10mg Take 1 Univers mg tablet 03-08 [id number] tablet by ity of 00:00: mouth 3 [place] 00 (three) Medical times Branch daily as needed for Pain (scale 4-6). metoprolol 2020-0 Yes [id number] 50mg Take 1 Un nneka succinate 7-09 tablet by ity o f XL 50 mg 24 00:00: mouth [place] hr tablet 00 daily. Medical Branch hydroCHLORO 2020-0 Yes [id number] 25mg Take 1 Univers thiazide 25 7-09 tablet by ity of mg tablet 00:00: mouth [place] 00 daily. [facility] baclofen 10 2020-0 Yes [id number] 10mg Take 1 [facility] mg tablet 03-08 [id number] tablet by [facility] of 00:00: mouth 3 [place] 00 (three) Medical times Branch daily as needed for Pain (scale 4-6). metoprolol 2020-0 Yes [id number] 50mg Take 1 Un nneka succinate 7-09 tablet by ity o f XL 50 mg 24 00:00: mouth [place] hr tablet 00 daily. [facility] hydroCHLORO 2020-0 Yes [id number] 25mg Take 1 [facility] thiazide 25 7-09 tablet by [facility] of mg tablet 00:00: mouth [place] 00 daily. [facility] baclofen 10 2020-0 Yes [id number] 10mg Take 1 [facility] mg tablet 7- [id number] tablet by [facility] of 00:00: mouth 3 [place] 00 (three) Medical times Branch daily as needed for Pain (scale 4-6). metoprolol 2020-0 Yes [id number] 50mg Take 1 [facility] nneka succinate 7-09 tablet by ity o f XL 50 mg 24 00:00: mouth [place] hr tablet 00 daily. [facility] hydroCHLORO 2020-0 Yes [id number] 25mg Take 1 [facility] thiazide 25 7-09 tablet by [facility] of mg tablet 00:00: mouth [place] 00 daily. [facility] baclofen 10 2020-0 Yes [id number] 10mg Take 1 [facility] mg tablet 03-08 [id number] tablet by [facility] of 00:00: mouth 3 [place] 00 (three) Medical times Branch daily as needed for Pain (scale 4-6). metoprolol 2020-0 Yes [id number] 50mg Take 1 [facility] nneka succinate 7-09 tablet by ity o f XL 50 mg 24 00:00: mouth [place] hr tablet 00 daily. [facility] hydroCHLORO 2020-0 Yes [id number] 25mg Take 1 [facility] thiazide 25 7-09 tablet by [facility] of mg tablet 00:00: mouth [place] 00 daily. [facility] baclofen 10 2019-0 Yes [id number] 10mg Take 1 [facility] mg tablet 03-08 [id number] tablet by [facility] of 00:00: mouth 3 [place] 00 (three) Medical times Branch daily as needed for Pain (scale 4-6). metoprolol 2020-0 Yes [id number] 50mg Take 1 [facility] nneka succinate 7-09 tablet by ity o f XL 50 mg 24 00:00: mouth [place] hr tablet 00 daily. [facility] hydroCHLORO 2020-0 Yes [id number] 25mg Take 1 [facility] thiazide 25 7-09 tablet by [facility] of mg tablet 00:00: mouth [place] 00 daily. [facility] baclofen 10 2019-0 Yes [id number] 10mg Take 1 [facility] mg tablet 03-08 [id number] tablet by [facility] of 00:00: mouth 3 [place] 00 (three) Medical times Branch daily as needed for Pain (scale 4-6). metoprolol 2020-0 Yes [id number] 50mg Take 1 [facility] nneka succinate 7-09 tablet by ity o f XL 50 mg 24 00:00: mouth [place] hr tablet 00 daily. [facility] hydroCHLORO 2020-0 Yes [id number] 25mg Take 1 [facility] thiazide 25 7-09 tablet by [facility] of mg tablet 00:00: mouth [place] 00 daily. [facility] baclofen 10 2019-0 Yes [id number] 10mg Take 1 [facility] mg tablet 03-08 [id number] tablet by [facility] of 00:00: mouth 3 [place] 00 (three) Medical times Branch daily as needed for Pain (scale 4-6). metoprolol 2020-0 Yes [id number] 50mg Take 1 [facility] nneka succinate 7-09 tablet by ity o f XL 50 mg 24 00:00: mouth [place] hr tablet 00 daily. [facility] hydroCHLORO 2020-0 Yes [id number] 25mg Take 1 [facility] thiazide 25 7-09 tablet by [facility] of mg tablet 00:00: mouth [place] 00 daily. [facility] baclofen 10 2020-0 Yes [id number] 10mg Take 1 [facility] mg tablet 7- [id number] tablet by [facility] of 00:00: mouth 3 [place] 00 (three) Medical times Branch daily as needed for Pain (scale 4-6). metoprolol 2020-0 Yes [id number] 50mg Take 1 [facility] nneka succinate 7-09 tablet by ity o f XL 50 mg 24 00:00: mouth [place] hr tablet 00 daily. [facility] hydroCHLORO 2020-0 Yes [id number] 25mg Take 1 [facility] thiazide 25 7-09 tablet by [facility] of mg tablet 00:00: mouth [place] 00 daily. [facility] baclofen 10 2020-0 Yes [id number] 10mg Take 1 [facility] mg tablet 03-08 [id number] tablet by [facility] of 00:00: mouth 3 [place] 00 (three) Medical times Branch daily as needed for Pain (scale 4-6). metoprolol 2020-0 Yes [id number] 50mg Take 1 [facility] nneka succinate 7-09 tablet by ity o f XL 50 mg 24 00:00: mouth [place] hr tablet 00 daily. [facility] hydroCHLORO 2020-0 Yes [id number] 25mg Take 1 [facility] thiazide 25 7-09 tablet by [facility] of mg tablet 00:00: mouth [place] 00 daily. [facility] baclofen 10 2020-0 Yes [id number] 10mg Take 1 [facility] mg tablet - [id number] tablet by [facility] of 00:00: mouth 3 [place] 00 (three) Medical times Branch daily as needed for Pain (scale 4-6). metoprolol 2020-0 Yes [id number] 50mg Take 1 [facility] nneka succinate 7-09 tablet by ity o f XL 50 mg 24 00:00: mouth [place] hr tablet 00 daily. [facility] hydroCHLORO 2020-0 Yes [id number] 25mg Take 1 [facility] thiazide 25 7-09 tablet by [facility] of mg tablet 00:00: mouth [place] 00 daily. [facility] baclofen 10 2020-0 Yes [id number] 10mg Take 1 [facility] mg tablet 03-08 [id number] tablet by [facility] of 00:00: mouth 3 [place] 00 (three) Medical times Branch daily as needed for Pain (scale 4-6). metoprolol 2020-0 Yes [id number] 50mg Take 1 [facility] nneka succinate 7-09 tablet by ity o f XL 50 mg 24 00:00: mouth [place] hr tablet 00 daily. [facility] hydroCHLORO 2020-0 Yes [id number] 25mg Take 1 [facility] thiazide 25 7-09 tablet by [facility] of mg tablet 00:00: mouth [place] 00 daily. [facility] baclofen 10 2020-0 Yes [id number] 10mg Take 1 [facility] mg tablet 03-08 [id number] tablet by [facility] of 00:00: mouth 3 [place] 00 (three) Medical times Branch daily as needed for Pain (scale 4-6). metoprolol 2020-0 Yes [id number] 50mg Take 1 [facility] nneka succinate 7-09 tablet by ity o f XL 50 mg 24 00:00: mouth [place] hr tablet 00 daily. [facility] hydroCHLORO 2020-0 Yes [id number] 25mg Take 1 [facility] thiazide 25 7-09 tablet by [facility] of mg tablet 00:00: mouth [place] 00 daily. [facility] baclofen 10 2019-0 Yes [id number] 10mg Take 1 [facility] mg tablet 03-08 [id number] tablet by [facility] of 00:00: mouth 3 [place] 00 (three) Medical times Branch daily as needed for Pain (scale 4-6). metoprolol 2020-0 Yes [id number] 50mg Take 1 [facility] nneka succinate 7-09 tablet by ity o f XL 50 mg 24 00:00: mouth [place] hr tablet 00 daily. [facility] hydroCHLORO 2020-0 Yes [id number] 25mg Take 1 [facility] thiazide 25 7-09 tablet by [facility] of mg tablet 00:00: mouth [place] 00 daily. [facility] baclofen 10 2020-0 Yes [id number] 10mg Take 1 [facility] mg tablet 03-08 [id number] tablet by [facility] of 00:00: mouth 3 [place] 00 (three) Medical times Branch daily as needed for Pain (scale 4-6). metoprolol 2020-0 Yes [id number] 50mg Take 1 [facility] nneka succinate 7-09 tablet by ity o f XL 50 mg 24 00:00: mouth [place] hr tablet 00 daily. [facility] hydroCHLORO 2020-0 Yes [id number] 25mg Take 1 [facility] thiazide 25 7-09 tablet by [facility] of mg tablet 00:00: mouth [place] 00 daily. [facility] baclofen 10 2020-0 Yes [id number] 10mg Take 1 [facility] mg tablet 03-08 [id number] tablet by [facility] of 00:00: mouth 3 [place] 00 (three) Medical times Branch daily as needed for Pain (scale 4-6). metoprolol 2020-0 Yes [id number] 50mg Take 1 [facility] nneka succinate 7-09 tablet by ity o f XL 50 mg 24 00:00: mouth [place] hr tablet 00 daily. [facility] hydroCHLORO 2020-0 Yes [id number] 25mg Take 1 [facility] thiazide 25 7-09 tablet by [facility] of mg tablet 00:00: mouth [place] 00 daily. [facility] baclofen 10 2019-0 Yes [id number] 10mg Take 1 [facility] mg tablet 03-08 [id number] tablet by [facility] of 00:00: mouth 3 [place] 00 (three) Medical times Branch daily as needed for Pain (scale 4-6). metoprolol 2020-0 Yes [id number] 50mg Take 1 [facility] nneka succinate 7-09 tablet by ity o f XL 50 mg 24 00:00: mouth [place] hr tablet 00 daily. [facility] hydroCHLORO 2019-0 Yes [id number] 25mg Take 1 [facility] thiazide 25 7-09 tablet by [facility] of mg tablet 00:00: mouth [place] 00 daily. [facility] baclofen 10 2019-0 Yes [id number] 10mg Take 1 [facility] mg tablet 03-08 [id number] tablet by [facility] of 00:00: mouth 3 [place] 00 (three) Medical times Branch daily as needed for Pain (scale 4-6). metoprolol 2020-0 Yes [id number] 50mg Take 1 [facility] nneka succinate 7-09 tablet by ity o f XL 50 mg 24 00:00: mouth [place] hr tablet 00 daily. [facility] hydroCHLORO 2020-0 Yes [id number] 25mg Take 1 [facility] thiazide 25 7-09 tablet by [facility] of mg tablet 00:00: mouth [place] 00 daily. [facility] baclofen 10 2019-0 Yes [id number] 10mg Take 1 [facility] mg tablet 7- [id number] tablet by [facility] of 00:00: mouth 3 [place] 00 (three) Medical times Branch daily as needed for Pain (scale 4-6). metoprolol 2020-0 Yes [id number] 50mg Take 1 [facility] nneka succinate 7-09 tablet by ity o f XL 50 mg 24 00:00: mouth [place] hr tablet 00 daily. [facility] hydroCHLORO 2020-0 Yes [id number] 25mg Take 1 [facility] thiazide 25 7-09 tablet by [facility] of mg tablet 00:00: mouth [place] 00 daily. [facility] baclofen 10 2020-0 Yes [id number] 10mg Take 1 [facility] mg tablet 7- [id number] tablet by [facility] of 00:00: mouth 3 [place] 00 (three) Medical times Branch daily as needed for Pain (scale 4-6). metoprolol 2020-0 Yes [id number] 50mg Take 1 [facility] nneka succinate 7-09 tablet by ity o f XL 50 mg 24 00:00: mouth [place] hr tablet 00 daily. [facility] hydroCHLORO 2020-0 Yes [id number] 25mg Take 1 [facility] thiazide 25 7-09 tablet by [facility] of mg tablet 00:00: mouth [place] 00 daily. [facility] baclofen 10 2020-0 Yes [id number] 10mg Take 1 [facility] mg tablet 03-08 [id number] tablet by [facility] of 00:00: mouth 3 [place] 00 (three) Medical times Branch daily as needed for Pain (scale 4-6). metoprolol 2020-0 Yes [id number] 50mg Take 1 [facility] nneka succinate 7-09 tablet by ity o f XL 50 mg 24 00:00: mouth [place] hr tablet 00 daily. [facility] hydroCHLORO 2020-0 Yes [id number] 25mg Take 1 [facility] thiazide 25 7-09 tablet by [facility] of mg tablet 00:00: mouth [place] 00 daily. [facility] baclofen 10 2020-0 Yes [id number] 10mg Take 1 [facility] mg tablet 03-08 [id number] tablet by ity of 00:00: mouth 3 [place] 00 (three) Medical times Branch daily as needed for Pain (scale 4-6). DULOXETINE 2020-0 Yes 60mg Take 60 mg U nivers HCL 2-25 by mouth 3 ity of (CYMBALTA 14:58: (three) [place] ORAL) 32 times Medical daily. Branch VITAMIN B 2020-0 Yes Take by Unive rs COMPLEX 2-25 mouth. ity of ORAL 14:58: [place] [address] [facility] traZODONE 2020-0 Yes 100mg Take 100 [facility] vers 100 mg 2-25 mg by ity of tablet 14:58: mouth at [place] [address] bedtime. [facility] benztropine 2020-0 Yes 1mg Take 1 mg U nivers 1 mg tablet 2-25 by mouth ity of 14:58: daily. [place] [address] [facility] DULOXETINE 2020-0 Yes 60mg Take 60 mg U nivers HCL 2-25 by mouth 3 ity of (CYMBALTA 14:58: (three) [place] ORAL) 32 times Medical daily. Branch VITAMIN B 2020-0 Yes Take by Unive rs COMPLEX 2-25 mouth. ity of ORAL 14:58: [place] [address] [facility] traZODONE 2020-0 Yes 100mg Take 100 [facility] vers 100 mg 2-25 mg by ity of tablet 14:58: mouth at [place] [address] bedtime. [facility] benztropine 2020-0 Yes 1mg Take 1 mg U nivers 1 mg tablet 2-25 by mouth ity of 14:58: daily. [place] [address] [facility] DULOXETINE 2020-0 Yes 60mg Take 60 mg U nivers HCL 2-25 by mouth 3 ity of (CYMBALTA 14:58: (three) [place] ORAL) 32 times Medical daily. Branch VITAMIN B 2020-0 Yes Take by Unive rs COMPLEX 2-25 mouth. ity of ORAL 14:58: [place] [address] [facility] traZODONE 2020-0 Yes 100mg Take 100 [facility] vers 100 mg 2-25 mg by ity of tablet 14:58: mouth at [place] [address] bedtime. [facility] benztropine 2020-0 Yes 1mg Take 1 mg U nivers 1 mg tablet 2-25 by mouth ity of 14:58: daily. [place] [address] [facility] DULOXETINE 2020-0 Yes 60mg Take 60 mg U nivers HCL 2-25 by mouth 3 ity of (CYMBALTA 14:58: (three) [place] ORAL) 32 times Medical daily. Branch VITAMIN B 2020-0 Yes Take by Unive rs COMPLEX 2-25 mouth. ity of ORAL 14:58: [place] [address] [facility] traZODONE 2020-0 Yes 100mg Take 100 [facility] vers 100 mg 2-25 mg by ity of tablet 14:58: mouth at [place] [address] bedtime. [facility] benztropine 2020-0 Yes 1mg Take 1 mg U nivers 1 mg tablet 2-25 by mouth ity of 14:58: daily. [place] [address] [facility] DULOXETINE 2020-0 Yes 60mg Take 60 mg U nivers HCL 2-25 by mouth 3 ity of (CYMBALTA 14:58: (three) [place] ORAL) 32 times Medical daily. Branch VITAMIN B 2020-0 Yes Take by Unive rs COMPLEX 2-25 mouth. ity of ORAL 14:58: [place] [address] [facility] traZODONE 2020-0 Yes 100mg Take 100 [facility] vers 100 mg 2-25 mg by ity of tablet 14:58: mouth at [place] [address] bedtime. [facility] benztropine 2020-0 Yes 1mg Take 1 mg U nivers 1 mg tablet 2-25 by mouth ity of 14:58: daily. [place] [address] [facility] DULOXETINE 2020-0 Yes 60mg Take 60 mg U nivers HCL 2-25 by mouth 3 ity of (CYMBALTA 14:58: (three) [place] ORAL) 32 times Medical daily. Branch VITAMIN B 2020-0 Yes Take by Unive rs COMPLEX 2-25 mouth. ity of ORAL 14:58: [place] [address] [facility] traZODONE 2020-0 Yes 100mg Take 100 [facility] vers 100 mg 2-25 mg by ity of tablet 14:58: mouth at [place] [address] bedtime. [facility] benztropine 2020-0 Yes 1mg Take 1 mg U nivers 1 mg tablet 2-25 by mouth ity of 14:58: daily. [place] [address] [facility] DULOXETINE 2020-0 Yes 60mg Take 60 mg U nivers HCL 2-25 by mouth 3 ity of (CYMBALTA 14:58: (three) [place] ORAL) 32 times Medical daily. Branch VITAMIN B 2020-0 Yes Take by Unive rs COMPLEX 2-25 mouth. ity of ORAL 14:58: [place] [address] [facility] traZODONE 2020-0 Yes 100mg Take 100 [facility] vers 100 mg 2-25 mg by ity of tablet 14:58: mouth at [place] [address] bedtime. [facility] benztropine 2020-0 Yes 1mg Take 1 mg U nivers 1 mg tablet 2-25 by mouth ity of 14:58: daily. [place] [address] [facility] DULOXETINE 2020-0 Yes 60mg Take 60 mg U nivers HCL 2-25 by mouth 3 ity of (CYMBALTA 14:58: (three) [place] ORAL) 32 times Medical daily. Branch VITAMIN B 2020-0 Yes Take by Unive rs COMPLEX 2-25 mouth. ity of ORAL 14:58: [place] [address] [facility] traZODONE 2020-0 Yes 100mg Take 100 [facility] vers 100 mg 2-25 mg by ity of tablet 14:58: mouth at [place] [address] bedtime. [facility] benztropine 2020-0 Yes 1mg Take 1 mg U nivers 1 mg tablet 2-25 by mouth ity of 14:58: daily. [place] [address] [facility] DULOXETINE 2020-0 Yes 60mg Take 60 mg U nivers HCL 2-25 by mouth 3 ity of (CYMBALTA 14:58: (three) [place] ORAL) 32 times Medical daily. Branch VITAMIN B 2020-0 Yes Take by Unive rs COMPLEX 2-25 mouth. ity of ORAL 14:58: [place] [address] [facility] traZODONE 2020-0 Yes 100mg Take 100 [facility] vers 100 mg 2-25 mg by ity of tablet 14:58: mouth at [place] [address] bedtime. [facility] benztropine 2020-0 Yes 1mg Take 1 mg U nivers 1 mg tablet 2-25 by mouth ity of 14:58: daily. [place] [address] [facility] DULOXETINE 2020-0 Yes 60mg Take 60 mg U nivers HCL 2-25 by mouth 3 ity of (CYMBALTA 14:58: (three) [place] ORAL) 32 times Medical daily. Branch VITAMIN B 2020-0 Yes Take by Unive rs COMPLEX 2-25 mouth. ity of ORAL 14:58: [place] [address] [facility] traZODONE 2020-0 Yes 100mg Take 100 [facility] vers 100 mg 2-25 mg by ity of tablet 14:58: mouth at [place] [address] bedtime. [facility] benztropine 2020-0 Yes 1mg Take 1 mg U nivers 1 mg tablet 2-25 by mouth ity of 14:58: daily. [place] [address] [facility] DULOXETINE 2020-0 Yes 60mg Take [...] by ity of tablet 14:58: mouth at [place] [address] bedtime. [facility] benztropine 2020-0 Yes 1mg Take 1 mg U nivers 1 mg tablet 2-25 by mouth ity of 14:58: daily. [place] [address] [facility] DULOXETINE 2020-0 Yes 60mg Take 60 mg U nivers HCL 2-25 by mouth 3 ity of (CYMBALTA 14:58: (three) [place] ORAL) 32 times Medical daily. Branch VITAMIN B 2020-0 Yes Take by Unive rs COMPLEX 2-25 mouth. ity of ORAL 14:58: [place] [address] [facility] traZODONE 2020-0 Yes 100mg Take 100 [facility] vers 100 mg 2-25 mg by ity of tablet 14:58: mouth at [place] [address] bedtime. [facility] benztropine 2020-0 Yes 1mg Take 1 mg U nivers 1 mg tablet 2-25 by mouth ity of 14:58: daily. [place] [address] [facility] DULOXETINE 2020-0 Yes 60mg Take 60 mg U nivers HCL 2-25 by mouth 3 ity of (CYMBALTA 14:58: (three) [place] ORAL) 32 times Medical daily. Branch VITAMIN B 2020-0 Yes Take by Un[facility] rs COMPLEX 2-25 mouth. ity of ORAL 14:58: [place] [address] [facility] traZODONE 2020-0 Yes 100mg Take 100 [facility] vers 100 mg 2-25 mg by ity of tablet 14:58: mouth at [place] [address] bedtime. [facility] benztropine 2020-0 Yes 1mg Take 1 mg U nivers 1 mg tablet 2-25 by mouth ity of 14:58: daily. [place] [address] [facility] DULOXETINE 2020-0 Yes 60mg Take 60 mg U nivers HCL 2-25 by mouth 3 ity of (CYMBALTA 14:58: (three) [place] ORAL) 32 times Medical daily. Branch VITAMIN B 2020-0 Yes Take by Unive rs COMPLEX 2-25 mouth. ity of ORAL 14:58: [place] [address] [facility] traZODONE 2020-0 Yes 100mg Take 100 [facility] vers 100 mg 2-25 mg by ity of tablet 14:58: mouth at [place] [address] bedtime. [facility] benztropine 2020-0 Yes 1mg Take 1 mg [facility] nivers 1 mg tablet 2-25 by mouth ity of 14:58: daily. [place] [address] [facility] DULOXETINE 2020-0 Yes 60mg Take 60 mg U nivers HCL 2-25 by mouth 3 ity of (CYMBALTA 14:58: (three) [place] ORAL) 32 times Medical daily. Branch VITAMIN B 2020-0 Yes Take by Unive rs COMPLEX 2-25 mouth. ity of ORAL 14:58: [place] [address] [facility] traZODONE 2020-0 Yes 100mg Take 100 [facility] vers 100 mg 2-25 mg by ity of tablet 14:58: mouth at [place] [address] bedtime. [facility] benztropine 2020-0 Yes 1mg Take 1 mg U nivers 1 mg tablet 2-25 by mouth ity of 14:58: daily. [place] [address] [facility] DULOXETINE 2020-0 Yes 60mg Take 60 mg U nivers HCL 2-25 by mouth 3 ity of (CYMBALTA 14:58: (three) [place] ORAL) 32 times Medical daily. Branch VITAMIN B 2020-0 Yes Take by Unive rs COMPLEX 2-25 mouth. ity of ORAL 14:58: [place] [address] [facility] traZODONE 2020-0 Yes 100mg Take 100 [facility] vers 100 mg 2-25 mg by ity of tablet 14:58: mouth at [place] [address] bedtime. [facility] benztropine 2020-0 Yes 1mg Take 1 mg U nivers 1 mg tablet 2-25 by mouth ity of 14:58: daily. [place] [address] [facility] DULOXETINE 2020-0 Yes 60mg Take 60 mg U nivers HCL 2-25 by mouth 3 ity of (CYMBALTA 14:58: (three) [place] ORAL) 32 times Medical daily. Branch VITAMIN B 2020-0 Yes Take by Unive rs COMPLEX 2-25 mouth. ity of ORAL 14:58: [place] [address] [facility] traZODONE 2020-0 Yes 100mg Take 100 [facility] vers 100 mg 2-25 mg by ity of tablet 14:58: mouth at [place] [address] bedtime. [facility] benztropine 2020-0 Yes 1mg Take 1 mg U nivers 1 mg tablet 2-25 by mouth ity of 14:58: daily. [place] [address] [facility] VITAMIN B 2020-0 Yes Take by Unive rs COMPLEX 2-25 mouth. ity of ORAL 14:58: [address] traZODONE 2020-0 Yes 100mg Take 100 [facility] vers 100 mg 2-25 mg by ity of tablet 14:58: mouth at [place] [address] bedtime. [facility] benztropine 2020-0 Yes 1mg Take 1 mg U nivers 1 mg tablet 2-25 by mouth ity of 14:58: daily. [address] VITAMIN B 2020-0 Yes Take by Un[facility] rs COMPLEX 2-25 mouth. ity of ORAL 14:58: [address] traZODONE 2020-0 Yes 100mg Take 100 [facility] vers 100 mg 2-25 mg by ity of tablet 14:58: mouth at [place] [address] bedtime. [facility] benztropine 2020-0 Yes 1mg Take 1 mg U nivers 1 mg tablet 2-25 by mouth ity of 14:58: daily. [address] VITAMIN B 2020-0 Yes Take by Unive rs COMPLEX 2-25 mouth. ity of ORAL 14:58: [address] traZODONE 2020-0 Yes 100mg Take 100 [facility] vers 100 mg 2-25 mg by ity of tablet 14:58: mouth at [place] [address] bedtime. [facility] benztropine 2020-0 Yes 1mg Take 1 mg U nivers 1 mg tablet 2-25 by mouth ity of 14:58: daily. [address] VITAMIN B 2020-0 Yes Take by Un[facility] rs COMPLEX 2-25 mouth. ity of ORAL 14:58: [address] traZODONE 2020-0 Yes 100mg Take 100 [facility] vers 100 mg 2-25 mg by ity of tablet 14:58: mouth at [place] [address] bedtime. [facility] benztropine 2020-0 Yes 1mg Take 1 mg U nivers 1 mg tablet 2-25 by mouth ity of 14:58: daily. [address] VITAMIN B 2020-0 Yes Take by Un[facility] rs COMPLEX 2-25 mouth. ity of ORAL 14:58: [address] traZODONE 2020-0 Yes 100mg Take 100 [facility] vers 100 mg 2-25 mg by ity of tablet 14:58: mouth at [place] [address] bedtime. [facility] benztropine 2020-0 Yes 1mg Take 1 mg U nivers 1 mg tablet 2-25 by mouth ity of 14:58: daily. [place] 32 [facility] VITAMIN B 2020-0 Yes Take by Unive rs COMPLEX 2-25 mouth. ity of ORAL 14:58: [address] Branch traZODONE 2020-0 Yes 100mg Take 100 [facility] vers 100 mg 2-25 mg by ity of tablet 14:58: mouth at [place] [address] bedtime. [facility] benztropine 2020-0 Yes 1mg Take 1 mg U nivers 1 mg tablet 2-25 by mouth ity of 14:58: daily. [address] VITAMIN B 2020-0 Yes Take by Un[facility] rs COMPLEX 2-25 mouth. ity of ORAL 14:58: [address] traZODONE 2020-0 Yes 100mg Take 100 [facility] vers 100 mg 2-25 mg by ity of tablet 14:58: mouth at [place] [address] bedtime. [facility] benztropine 2020-0 Yes 1mg Take 1 mg U nivers 1 mg tablet 2-25 by mouth ity of 14:58: daily. [address] VITAMIN B 2020-0 Yes Take by Un[facility] rs COMPLEX 2-25 mouth. ity of ORAL 14:58: [address] traZODONE 2020-0 Yes 100mg Take 100 [facility] vers 100 mg 2-25 mg by ity of tablet 14:58: mouth at [place] [address] bedtime. [facility] benztropine 2020-0 Yes 1mg Take 1 mg U nivers 1 mg tablet 2-25 by mouth ity of 14:58: daily. [address] VITAMIN B 2020-0 Yes Take by Un[facility] rs COMPLEX 2-25 mouth. ity of ORAL 14:58: [address] traZODONE 2020-0 Yes 100mg Take 100 [facility] vers 100 mg 2-25 mg by ity of tablet 14:58: mouth at [place] [address] bedtime. [facility] benztropine 2020-0 Yes 1mg Take 1 mg U nivers 1 mg tablet 2-25 by mouth ity of 14:58: daily. [address] VITAMIN B 2020-0 Yes Take by Un[facility] rs COMPLEX 2-25 mouth. ity of ORAL 14:58: [address] traZODONE 2020-0 Yes 100mg Take 100 [facility] vers 100 mg 2-25 mg by ity of tablet 14:58: mouth at [place] [address] bedtime. [facility] benztropine 2020-0 Yes 1mg Take 1 mg U nivers 1 mg tablet 2-25 by mouth ity of 14:58: daily. [address] VITAMIN B 2020-0 Yes Take by Unive rs COMPLEX 2-25 mouth. ity of ORAL 14:58: [address] traZODONE 2020-0 Yes 100mg Take 100 [facility] vers 100 mg 2-25 mg by ity of tablet 14:58: mouth at [place] [address] bedtime. [facility] benztropine 2020-0 Yes 1mg Take 1 mg U nivers 1 mg tablet 2-25 by mouth ity of 14:58: daily. [address] VITAMIN B 2020-0 Yes Take by Un[facility] rs COMPLEX 2-25 mouth. ity of ORAL 14:58: [address] traZODONE 2020-0 Yes 100mg Take 100 [facility] vers 100 mg 2-25 mg by ity of tablet 14:58: mouth at [place] [address] bedtime. [facility] benztropine 2020-0 Yes 1mg Take 1 mg U nivers 1 mg tablet 2-25 by mouth ity of 14:58: daily. [address] VITAMIN B 2020-0 Yes Take by Un[facility] rs COMPLEX 2-25 mouth. ity of ORAL 14:58: [address] traZODONE 2020-0 Yes 100mg Take 100 [facility] vers 100 mg 2-25 mg by ity of tablet 14:58: mouth at [place] [address] bedtime. [facility] Branch benztropine 2020-0 Yes 1mg Take 1 mg U nivers 1 mg tablet 2-25 by mouth ity of 14:58: daily. [address] VITAMIN B 2020-0 Yes Take by Un[facility] rs COMPLEX 2-25 mouth. ity of ORAL 14:58: [address] traZODONE 2020-0 Yes 100mg Take 100 [facility] vers 100 mg 2-25 mg by ity of tablet 14:58: mouth at [place] [address] bedtime. Medical [facility] benztropine 2020-0 Yes 1mg Take 1 mg U nivers 1 mg tablet 2-25 by mouth ity of 14:58: daily. [address] VITAMIN B 2020-0 Yes Take by Un[facility] rs COMPLEX 2-25 mouth. ity of ORAL 14:58: [address] traZODONE 2020-0 Yes 100mg Take 100 [facility] vers 100 mg 2-25 mg by ity of tablet 14:58: mouth at [place] [address] bedtime. Medical Branch benztropine 2020-0 Yes 1mg Take 1 mg U nivers 1 mg tablet 2-25 by mouth ity of 14:58: daily. [place] 32 [facility] aripiprazol 2020-0 Yes 5mg [...] 2-24 by mouth ity of 17:16: daily. [place] 05 [facility] ARIPiprazol 2020-0 Yes 10mg Take 10 mg [facility] e 10 mg 2-24 by mouth 2 ity of tablet 17:16: (two) [place] 05 times Medical daily. Branch DULOXETINE 2020-0 Yes 60mg Take 60 mg U nivers HCL 2-24 by mouth 3 ity of (CYMBALTA 17:15: (three) [place] ORAL) 45 times Medical daily. Branch VITAMIN B 2020-0 Yes Take by Un[facility] rs COMPLEX 2-24 mouth. ity of ORAL 17:15: [place] 45 [facility] traZODONE 2020-0 Yes 100mg Take 100 [facility] vers 100 mg 2-24 mg by ity of tablet 17:15: mouth at [place] [address] bedtime. Medical Branch DULOXETINE 2020-0 Yes 60mg Take 60 mg U nivers HCL 2-24 by mouth 3 ity of (CYMBALTA 17:15: (three) [place] ORAL) 45 times Medical daily. Branch VITAMIN B 2020-0 Yes Take by Un[facility] rs COMPLEX 2-24 mouth. ity of ORAL 17:15: [place] 45 [facility] traZODONE 2020-0 Yes 100mg Take 100 [facility] vers 100 mg 2-24 mg by ity of tablet 17:15: mouth at [place] 45 bedtime. Medical Branch DULOXETINE 2020-0 Yes 60mg Take 60 mg U nivers HCL 2-24 by mouth 3 ity of (CYMBALTA 17:15: (three) [place] ORAL) 45 times Medical daily. Branch VITAMIN B 2020-0 Yes Take by Un[facility] rs COMPLEX 2-24 mouth. ity of ORAL 17:15: [place] 45 [facility] Branch traZODONE 2020-0 Yes 100mg Take 100 Uni vers 100 mg 2-24 mg by ity of tablet 17:15: mouth at [place] [id number] bedtime. [facility] Branch OLANZapine 2020-0 2020- No 20mg Take 20 mg [facility] 20 mg 2-24 02-24 by mouth ity of tablet 17:15: 00:00 at [place] 35 :00 bedtime. [facility] Branch OLANZapine 2020-0 2020- No 20mg Take 20 mg [facility] 20 mg 2-24 02-24 by mouth ity of tablet 17:15: 00:00 at [place] 35 :00 bedtime. Medical Branch OLANZapine 2020-0 [...] 00:00 by mouth [place] 09 :00 daily. [facility] DULoxetine 2019- No Take 3 Univ ers 30 mg 2-24 -24 capsules ity of capsule 17:15: 00:00 by mouth [place] 09 :00 daily. [facility] metoprolol Yes [id number] 50mg Take 1 Un nneka succinate 2-24 tablet by ity o f XL 50 mg 24 00:00: mouth [place] hr tablet 00 daily. [facility] metoprolol Yes [id number] 50mg Take 1 Un nneka succinate 2-24 tablet by ity o f XL 50 mg 24 00:00: mouth [place] hr tablet 00 daily. [facility] metoprolol Yes [id number] 50mg Take 1 Un nneka succinate 2-24 tablet by ity o f XL 50 mg 24 00:00: mouth [place] hr tablet 00 daily. [facility] metoprolol Yes [id number] 50mg Take 1 Un nneka succinate 2-24 tablet by ity o f XL 50 mg 24 00:00: mouth [place] hr tablet 00 daily. [facility] metoprolol 2020-0 Yes [id number] 50mg Take 1 Un nneka succinate 2-24 tablet by ity o f XL 50 mg 24 00:00: mouth [place] hr tablet 00 daily. [facility] metoprolol 2020-0 Yes [id number] 50mg Take 1 Un nneka succinate 2-24 tablet by ity o f XL 50 mg 24 00:00: mouth [place] hr tablet 00 daily. [facility] metoprolol 2020-0 Yes [id number] 50mg Take 1 Un nneka succinate 2-24 tablet by ity o f XL 50 mg 24 00:00: mouth [place] hr tablet 00 daily. [facility] metoprolol 2020-0 Yes [id number] 50mg Take 1 Un nneka succinate 2-24 tablet by ity o f XL 50 mg 24 00:00: mouth [place] hr tablet 00 daily. [facility] metoprolol 2019-0 Yes [id number] 50mg Take 1 Un nneka succinate 2-24 tablet by ity o f XL 50 mg 24 00:00: mouth [place] hr tablet 00 daily. [facility] metoprolol 2019-0 Yes [id number] 50mg Take 1 Un nneka succinate 2-24 tablet by ity o f XL 50 mg 24 00:00: mouth [place] hr tablet 00 daily. [facility] metoprolol 2019-0 2020- No [id number] 50mg Take 1 U nivers succinate 2-24 - tablet by ity of XL 50 mg 24 00:00: 00:00 [place] tablet 00 :00 daily. [facility] metoprolol 2020-0 2020- No [id number] 50mg Take 1 U nivers succinate 2-24 - tablet by ity of XL 50 mg 24 00:00: 00:00 [place] tablet 00 :00 daily. [facility] metoprolol 2020-0 2020- No [id number] 50mg Take 1 U nivers succinate 2-24 -09 tablet by ity of XL 50 mg 24 00:00: 00:00 [place] tablet 00 :00 daily. [facility] metoprolol 2020-0 2020- No [id number] 50mg Take 1 U nivers succinate 2-24 -09 tablet by ity of XL 50 mg 24 00:00: 00:00 [place] hr tablet 00 :00 daily. [facility] hydroCHLORO 2020-0 Yes [id number] 25mg Take 1 [facility] thiazide 25 1-30 tablet by ity of mg tablet 00:00: mouth [place] 00 daily. [facility] meloxicam 2020-0 Yes [id number] 15mg Take 1 U nivers 15 mg 1-30 tablet by ity of tablet 00:00: mouth [place] 00 daily. [facility] metoprolol 2020-0 Yes [id number] 25mg Take 1 Un nneka succinate 1-30 tablet by ity o f XL 25 mg 24 00:00: mouth [place] hr tablet 00 daily. [facility] pregabalin 2020-0 Yes [id number] 150mg Take 1 [facility] (LYRICA) 1-30 capsule by ity o f 150 mg 00:00: mouth 2 [place] capsule 00 (two) Medical times Branch daily. hydroCHLORO 2020-0 Yes [id number] 25mg Take 1 [facility] thiazide 25 1-30 tablet by ity of mg tablet 00:00: mouth [place] 00 daily. [facility] meloxicam 2020-0 Yes [id number] 15mg Take 1 U nivers 15 mg 1-30 tablet by ity of tablet 00:00: mouth [place] 00 daily. [facility] metoprolol 2020-0 Yes [id number] 25mg Take 1 Un nneka succinate 1-30 tablet by ity o f XL 25 mg 24 00:00: mouth [place] hr tablet 00 daily. [facility] pregabalin 2020-0 Yes [id number] 150mg Take 1 [facility] (LYRICA) 1-30 capsule by ity o f 150 mg 00:00: mouth 2 [place] capsule 00 (two) Medical times Branch daily. hydroCHLORO 2020-0 Yes [id number] 25mg Take 1 [facility] thiazide 25 1-30 tablet by ity of mg tablet 00:00: mouth [place] 00 daily. Medical Branch meloxicam 2020-0 Yes [id number] 15mg Take 1 U nivers 15 mg 1-30 tablet by ity of tablet 00:00: mouth [place] 00 daily. [facility] Branch pregabalin 2020-0 Yes [id number] 150mg Take 1 [facility] (LYRICA) 1-30 capsule by ity o f 150 mg 00:00: mouth 2 [place] capsule 00 (two) Medical times Branch daily. hydroCHLORO 2020-0 Yes [id number] 25mg Take 1 [facility] thiazide 25 1-30 tablet by ity of mg tablet 00:00: mouth [place] 00 daily. Medical Branch meloxicam 2020-0 Yes [id number] 15mg Take 1 U nivers 15 mg 1-30 tablet by ity of tablet 00:00: mouth [place] 00 daily. Medical Branch pregabalin 2020-0 Yes [id number] 150mg Take 1 [facility] (LYRICA) 1-30 capsule by ity o f 150 mg 00:00: mouth 2 [place] capsule 00 (two) Medical times [place] daily. hydroCHLORO 2020-0 Yes [id number] 25mg Take 1 [facility] thiazide 25 1-30 tablet by ity of mg tablet 00:00: mouth [place] 00 daily. Medical Branch meloxicam 2020-0 Yes [id number] 15mg Take 1 U nivers 15 mg 1-30 tablet by ity of tablet 00:00: mouth [place] 00 daily. Medical Branch pregabalin 2020-0 Yes [id number] 150mg Take 1 [facility] (LYRICA) 1-30 capsule by ity o f 150 mg 00:00: mouth 2 [place] capsule 00 (two) Medical times [place] daily. hydroCHLORO 2020-0 Yes [id number] 25mg Take 1 [facility] thiazide 25 1-30 tablet by ity of mg tablet 00:00: mouth [place] 00 daily. Medical Branch meloxicam 2020-0 Yes [id number] 15mg Take 1 U nivers 15 mg 1-30 tablet by ity of tablet 00:00: mouth [place] 00 daily. Medical Branch pregabalin 2020-0 Yes [id number] 150mg Take 1 [facility] (LYRICA) 1-30 capsule by ity o f 150 mg 00:00: mouth 2 [place] capsule 00 (two) Medical times [place] daily. hydroCHLORO 2020-0 Yes [id number] 25mg Take 1 [facility] thiazide 25 1-30 tablet by ity of mg tablet 00:00: mouth [place] 00 daily. Medical Branch meloxicam 2020-0 Yes [id number] 15mg Take 1 U nivers 15 mg 1-30 tablet by ity of tablet 00:00: mouth [place] 00 daily. Medical Branch pregabalin 2020-0 Yes [id number] 150mg Take 1 [facility] (LYRICA) 1-30 capsule by ity o f 150 mg 00:00: mouth 2 [place] capsule 00 (two) Medical times [place] daily. hydroCHLORO 2020-0 Yes [id number] 25mg Take 1 [facility] thiazide 25 1-30 tablet by ity of mg tablet 00:00: mouth [place] 00 daily. Medical Branch meloxicam 2020-0 Yes [id number] 15mg Take 1 U nivers 15 mg 1-30 tablet by ity of tablet 00:00: mouth [place] 00 daily. Medical Branch pregabalin 2020-0 Yes [id number] 150mg Take 1 [facility] (LYRICA) 1-30 capsule by ity o f 150 mg 00:00: mouth 2 [place] capsule 00 (two) Medical times [place] daily. hydroCHLORO 2020-0 Yes [id number] 25mg Take 1 [facility] thiazide 25 1-30 tablet by ity of mg tablet 00:00: mouth [place] 00 daily. Medical Branch meloxicam 2020-0 Yes [id number] 15mg Take 1 U nivers 15 mg 1-30 tablet by ity of tablet 00:00: mouth [place] 00 daily. Medical Branch pregabalin 2020-0 Yes [id number] 150mg Take 1 Univers (LYRICA) 1-30 capsule by ity o f 150 mg 00:00: mouth 2 [place] capsule 00 (two) Medical times [place] daily. hydroCHLORO 2020-0 Yes [id number] 25mg Take 1 [facility] thiazide 25 1-30 tablet by ity of mg tablet 00:00: mouth [place] 00 daily. Medical Branch meloxicam 2020-0 Yes [id number] 15mg Take 1 U nivers 15 mg 1-30 tablet by ity of tablet 00:00: mouth [place] 00 daily. [facility] Branch pregabalin 2020-0 Yes [id number] 150mg Take 1 [facility] (LYRICA) 1-30 capsule by ity o f 150 mg 00:00: mouth 2 [place] capsule 00 (two) Medical times Branch daily. hydroCHLORO 2020-0 Yes [id number] 25mg Take 1 [facility] thiazide 25 1-30 tablet by ity of mg tablet 00:00: mouth [place] 00 daily. [facility] Branch meloxicam 2020-0 Yes [id number] 15mg Take 1 U nivers 15 mg 1-30 tablet by ity of tablet 00:00: mouth [place] 00 daily. Medical Branch pregabalin 2020-0 Yes [id number] 150mg Take 1 [facility] (LYRICA) 1-30 capsule by ity o f 150 mg 00:00: mouth 2 [place] capsule 00 (two) Medical times [place] daily. hydroCHLORO 2020-0 Yes [id number] 25mg Take 1 [facility] thiazide 25 1-30 tablet by ity of mg tablet 00:00: mouth [place] 00 daily. Medical Branch meloxicam 2020-0 Yes [id number] 15mg Take 1 U nivers 15 mg 1-30 tablet by ity of tablet 00:00: mouth [place] 00 daily. Medical Branch pregabalin 2020-0 Yes [id number] 150mg Take 1 Univers (LYRICA) 1-30 capsule by ity o f 150 mg 00:00: mouth 2 [place] capsule 00 (two) Medical times Branch daily. meloxicam 2020-0 Yes [id number] 15mg Take 1 U nivers 15 mg 1-30 tablet by ity of tablet 00:00: mouth [place] 00 daily. Medical Branch pregabalin 2020-0 Yes [id number] 150mg Take 1 Univers (LYRICA) 1-30 capsule by ity o f 150 mg 00:00: mouth 2 [place] capsule 00 (two) Medical times Branch daily. meloxicam 2020-0 Yes [id number] 15mg Take 1 U nivers 15 mg 1-30 tablet by ity of tablet 00:00: mouth [place] 00 daily. Medical Branch pregabalin 2020-0 Yes [id number] 150mg Take 1 Univers (LYRICA) 1-30 capsule by ity o f 150 mg 00:00: mouth 2 [place] capsule 00 (two) Medical times Branch daily. meloxicam 2020-0 Yes [id number] 15mg Take 1 U nivers 15 mg 1-30 tablet by ity of tablet 00:00: mouth [place] 00 daily. Medical Branch pregabalin 2020-0 Yes [id number] 150mg Take 1 [facility] (LYRICA) 1-30 capsule by ity o f 150 mg 00:00: mouth 2 [place] capsule 00 (two) Medical times Branch daily. meloxicam 2020-0 Yes [id number] 15mg Take 1 U nivers 15 mg 1-30 tablet by ity of tablet 00:00: mouth [place] 00 daily. Medical Branch pregabalin 2020-0 Yes [id number] 150mg Take 1 [facility] (LYRICA) 1-30 capsule by ity o f 150 mg 00:00: mouth 2 [place] capsule 00 (two) Medical times Branch daily. meloxicam 2020-0 Yes [id number] 15mg Take 1 U nivers 15 mg 1-30 tablet by ity of tablet 00:00: mouth [place] 00 daily. Medical Branch pregabalin 2020-0 Yes [id number] 150mg Take 1 Univers (LYRICA) 1-30 capsule by ity o f 150 mg 00:00: mouth 2 [place] capsule 00 (two) Medical times Branch daily. meloxicam 2020-0 Yes [id number] 15mg Take 1 U nivers 15 mg 1-30 tablet by ity of tablet 00:00: mouth [place] 00 daily. Medical Branch pregabalin 2020-0 Yes [id number] 150mg Take 1 [facility] (LYRICA) 1-30 capsule by ity o f 150 mg 00:00: mouth 2 [place] capsule 00 (two) Medical times Branch daily. meloxicam 2020-0 Yes [id number] 15mg Take 1 U nivers 15 mg 1-30 tablet by ity of tablet 00:00: mouth [place] 00 daily. Medical Branch pregabalin 2020-0 Yes [id number] 150mg Take 1 [facility] (LYRICA) 1-30 capsule by ity o f 150 mg 00:00: mouth 2 [place] capsule 00 (two) Medical times Branch daily. meloxicam 2020-0 Yes [id number] 15mg Take 1 U nivers 15 mg 1-30 tablet by ity of tablet 00:00: mouth [place] 00 daily. Medical Branch pregabalin 2020-0 Yes [id number] 150mg Take 1 Univers (LYRICA) 1-30 capsule by ity o f 150 mg 00:00: mouth 2 [place] capsule 00 (two) Medical times Branch daily. meloxicam 2020-0 Yes [id number] 15mg Take 1 U nivers 15 mg 1-30 tablet by ity of tablet 00:00: mouth [place] 00 daily. Medical Branch pregabalin 2020-0 Yes [id number] 150mg Take 1 Univers (LYRICA) 1-30 capsule by ity o f 150 mg 00:00: mouth 2 [place] capsule 00 (two) Medical times Branch daily. meloxicam 2020-0 Yes [id number] 15mg Take 1 U nivers 15 mg 1-30 tablet by ity of tablet 00:00: mouth [place] 00 daily. Medical Branch pregabalin 2020-0 Yes [id number] 150mg Take 1 [facility] (LYRICA) 1-30 capsule by ity o f 150 mg 00:00: mouth 2 [place] capsule 00 (two) Medical times Branch daily. meloxicam 2020-0 Yes [id number] 15mg Take 1 U nivers 15 mg 1-30 tablet by ity of tablet 00:00: mouth [place] 00 daily. Medical Branch pregabalin 2020-0 Yes [id number] 150mg Take 1 [facility] (LYRICA) 1-30 capsule by ity o f 150 mg 00:00: mouth 2 [place] capsule 00 (two) Medical times Branch daily. meloxicam 2020-0 Yes [id number] 15mg Take 1 U nivers 15 mg 1-30 tablet by ity of tablet 00:00: mouth [place] 00 daily. Medical Branch pregabalin 2020-0 Yes [id number] 150mg Take 1 Univers (LYRICA) 1-30 capsule by ity o f 150 mg 00:00: mouth 2 [place] capsule 00 (two) Medical times Branch daily. meloxicam 2020-0 Yes [id number] 15mg Take 1 U nivers 15 mg 1-30 tablet by ity of tablet 00:00: mouth [place] 00 daily. Medical Branch pregabalin 2020-0 Yes [id number] 150mg Take 1 Univers (LYRICA) 1-30 capsule by ity o f 150 mg 00:00: mouth 2 [place] capsule 00 (two) Medical times Branch daily. meloxicam 2020-0 Yes [id number] 15mg Take 1 U nivers 15 mg 1-30 tablet by ity of tablet 00:00: mouth [place] 00 daily. Medical Branch pregabalin 2020-0 Yes [id number] 150mg Take 1 Univers (LYRICA) 1-30 capsule by ity o f 150 mg 00:00: mouth 2 [place] capsule 00 (two) Medical times Branch daily. meloxicam 2020-0 Yes [id number] 15mg Take 1 U nivers 15 mg 1-30 tablet by ity of tablet 00:00: mouth [place] 00 daily. Medical Branch pregabalin 2020-0 Yes [id number] 150mg Take 1 Univers (LYRICA) 1-30 capsule by ity o f 150 mg 00:00: mouth 2 [place] capsule 00 (two) Medical times Branch daily. meloxicam 2020-0 Yes [id number] 15mg Take 1 U nivers 15 mg 1-30 tablet by ity of tablet 00:00: mouth [place] 00 daily. Medical Branch pregabalin 2020-0 Yes [id number] 150mg Take 1 Univers (LYRICA) 1-30 capsule by ity o f 150 mg 00:00: mouth 2 [place] capsule 00 (two) Medical times Branch daily. meloxicam 2020-0 Yes [id number] 15mg Take 1 U nivers 15 mg 1-30 tablet by ity of tablet 00:00: mouth [place] 00 daily. Medical Branch pregabalin 2020-0 Yes [id number] 150mg Take 1 Univers (LYRICA) 1-30 capsule by ity o f 150 mg 00:00: mouth 2 [place] capsule 00 (two) Medical times Branch daily. meloxicam 2020-0 Yes [id number] 15mg Take 1 U nivers 15 mg 1-30 tablet by ity of tablet 00:00: mouth [place] 00 daily. Medical Branch meloxicam 2020-0 Yes [id number] 15mg Take 1 U nivers 15 mg 1-30 tablet by ity of tablet 00:00: mouth [place] 00 daily. Medical Branch meloxicam 2020-0 Yes [id number] 15mg Take 1 U nivers 15 mg 1-30 tablet by ity of tablet 00:00: mouth [place] 00 daily. Medical Branch meloxicam 2020-0 Yes [id number] 15mg Take 1 U nivers 15 mg 1-30 tablet by ity of tablet 00:00: mouth [place] 00 daily. [facility] meloxicam 2020-0 Yes [id number] 15mg Take 1 U nivers 15 mg 1-30 tablet by ity of tablet 00:00: mouth [place] 00 daily. Medical Branch meloxicam 2020-0 Yes [id number] 15mg Take 1 U nivers 15 mg 1-30 tablet by ity of tablet 00:00: mouth [place] 00 daily. Medical Branch meloxicam 2020-0 Yes [id number] 15mg Take 1 U nivers 15 mg 1-30 tablet by ity of tablet 00:00: mouth [place] 00 daily. [facility] meloxicam 2020-0 Yes [id number] 15mg Take 1 U nivers 15 mg 1-30 tablet by ity of tablet 00:00: mouth [place] 00 daily. Medical Branch pregabalin 2020-0 2020- No [id number] 150mg Take 1 Univers (LYRICA) 1-30 12-21 capsule by ity of 150 mg 00:00: 00:00 mouth 2 [place] capsule 00 :00 (two) Medical times Branch daily. hydroCHLORO 2019-0 2019- No [id number] 25mg Take 1 [facility] thiazide 25 -30 -09 tablet by it y of mg tablet 00:00: 00:00 mouth [place] 00 :00 daily. Medical Branch hydroCHLORO 2019- No [id number] 25mg Take 1 [facility] thiazide 25 -30 -09 tablet by it y of mg tablet 00:00: 00:00 mouth [place] 00 :00 daily. [facility] Branch hydroCHLORO 2019-2019- No [id number] 25mg Take 1 [facility] thiazide 25 30 -09 tablet by it y of mg tablet 00:00: 00:00 mouth [place] 00 :00 daily. Medical Branch hydroCHLORO 2019-2019- No [id number] 25mg Take 1 [facility] thiazide 25 30 -09 tablet by it y of mg tablet 00:00: 00:00 mouth [place] 00 :00 daily. Medical Branch metoprolol 2019- 2020- No [id number] 25mg Take 1 U nivers succinate 1-30 02-24 tablet by ity of XL 25 mg 24 00:00: 00:00 mouth [place] hr tablet 00 :00 daily. [facility] metoprolol 2019- 2020- No [id number] 25mg Take 1 U nivers succinate 1-30 02-24 tablet by ity of XL 25 mg 24 00:00: 00:00 mouth [place] hr tablet 00 :00 daily. [facility] metoprolol 2019- No [id number] 25mg Take 1 U nivers succinate 1-30 02-24 tablet by ity of XL 25 mg 24 00:00: 00:00 mouth [place] hr tablet 00 :00 daily. [facility] Branch aripiprazol 2018-08 Yes 5mg Take 5 mg U nivers e (ABILIFY 2-17 by mouth 2 ity of ORAL) 15:02: (two) [place] 33 times Medical daily. Branch aripiprazol 2018-08 Yes 5mg Take 5 mg U nivers e (ABILIFY 2-17 by mouth 2 ity of ORAL) 15:02: (two) [place] 33 times Medical daily. Branch aripiprazol 2018-08 Yes 5mg Take 5 mg U nivers e (ABILIFY 2-17 by mouth 2 ity of ORAL) 15:02: (two) [place] 33 times Medical daily. Branch aripiprazol 2018-08 Yes 5mg Take 5 mg U nivers e (ABILIFY 2-17 by mouth 2 ity of ORAL) 15:02: (two) [place] [id number] times Medical daily. Branch VITAMIN B 2018-08 Yes Take by Unive rs COMPLEX 0-31 mouth. ity of ORAL 17:11: [address] traZODONE 2018-08 Yes 100mg Take 100 Uni vers 100 mg 0-31 mg by ity of tablet 17:11: mouth at [place] [address] bedtime. Medical Branch VITAMIN B 2018-08 Yes Take by Unive rs COMPLEX 0-31 mouth. ity of ORAL 17:11: [address] traZODONE 2018-08 Yes 100mg Take 100 Uni vers 100 mg 0-31 mg by ity of tablet 17:11: mouth at [place] [address] bedtime. Medical Branch VITAMIN B 2018-08 Yes Take by Unive rs COMPLEX 0-31 mouth. ity of ORAL 17:11: [address] traZODONE 2018-08 Yes 100mg Take 100 Uni vers 100 mg 0-31 mg by ity of tablet 17:11: mouth at [place] [address] bedtime. Medical Branch VITAMIN B 2018-08 Yes Take by Unive rs COMPLEX 0-31 mouth. ity of ORAL 17:11: [address] traZODONE 2018-08 Yes 100mg Take 100 Uni vers 100 mg 0-31 mg by ity of tablet 17:11: mouth at [place] [address] bedtime. Medical Branch traZODONE Yes 100mg Take 100 Uni vers 100 mg 8-29 mg by ity of tablet 19:24: mouth at [place] [address] bedtime. Medical Branch traZODONE Yes 100mg Take 100 Uni vers 100 mg 8-29 mg by ity of tablet 19:24: mouth at [place] [address] bedtime. Medical Branch traZODONE Yes 100mg Take 100 Uni vers 100 mg 8-29 mg by ity of tablet 19:24: mouth at [place] [address] bedtime. [facility] traZODONE Yes 100mg Take 100 Uni vers 100 mg 8-29 mg by ity of tablet 19:24: mouth at [place] [address] bedtime. Medical Branch traZODONE Yes 100mg Take [...] 8-29 by mouth ity of 14:39: daily. [place] [facility] ARIPiprazol Yes 10mg Take 10 [...] 8-29 by mouth ity of 14:39: daily. [place] [facility] ARIPiprazol Yes 10mg Take 10 [...] 8-29 by mouth ity of 14:39: daily. [place] [facility] ARIPiprazol Yes 10mg Take 10 [...] 8-29 by mouth ity of 14:39: daily. [address] ARIPiprazol 0 Yes 10mg Take 10 [...] 8-29 by mouth ity of 14:39: daily. [address] ARIPiprazol Yes 10mg Take 10 mg [...] 8-29 by mouth ity of 14:39: daily. [address] ARIPiprazol Yes 10mg Take 10 mg [...] 8-29 by mouth ity of 14:39: daily. [address] ARIPiprazol 0 Yes 10mg Take 10 [...] 21 times Medical daily. Branch metoprolol Yes [id number] 25mg Take 1 Un nneka succinate 8-29 tablet by ity o f XL 25 mg 24 00:00: mouth [place] hr tablet 00 daily. Medical Branch hydroCHLORO Yes [id number] 25mg Take 1 [facility] thiazide 25 8-29 tablet by ity of mg tablet 00:00: mouth [place] 00 daily. Medical Branch meloxicam Yes [id number] 15mg Take 1 U nivers 15 mg 8-29 tablet by ity of tablet 00:00: mouth [place] 00 daily. Medical Branch metoprolol Yes [id number] 25mg Take 1 Un nneka succinate 8-29 tablet by ity o f XL 25 mg 24 00:00: mouth [place] hr tablet 00 daily. Medical Branch hydroCHLORO Yes [id number] 25mg Take 1 [facility] thiazide 25 8-29 tablet by ity of mg tablet 00:00: mouth [place] 00 daily. Medical Branch meloxicam Yes [id number] 15mg Take 1 U nivers 15 mg 8-29 tablet by ity of tablet 00:00: mouth [place] 00 daily. Medical Branch metoprolol Yes [id number] 25mg Take 1 Un nneka succinate 8-29 tablet by ity o f XL 25 mg 24 00:00: mouth [place] hr tablet 00 daily. Medical Branch hydroCHLORO Yes [id number] 25mg Take 1 [facility] thiazide 25 8-29 tablet by ity of mg tablet 00:00: mouth [place] 00 daily. Medical Branch meloxicam Yes [id number] 15mg Take 1 U nivers 15 mg 8-29 tablet by ity of tablet 00:00: mouth [place] 00 daily. Medical Branch metoprolol Yes [id number] 25mg Take 1 Un nneka succinate 8-29 tablet by ity o f XL 25 mg 24 00:00: mouth [place] hr tablet 00 daily. Medical Branch hydroCHLORO 2018-0 Yes [id number] 25mg Take 1 [facility] thiazide 25 8-29 tablet by ity of mg tablet 00:00: mouth [place] 00 daily. Medical Branch meloxicam 2019-0 Yes [id number] 15mg Take 1 U nivers 15 mg 8-29 tablet by ity of tablet 00:00: mouth [place] 00 daily. Medical Branch metoprolol 0 Yes [id number] 25mg Take 1 Un nneka succinate 8-29 tablet by ity o f XL 25 mg 24 00:00: mouth [place] hr tablet 00 daily. Medical Branch hydroCHLORO 0 Yes [id number] 25mg Take 1 [facility] thiazide 25 8-29 tablet by ity of mg tablet 00:00: mouth [place] 00 daily. Medical Branch meloxicam 0 Yes [id number] 15mg Take 1 U nivers 15 mg 8-29 tablet by ity of tablet 00:00: mouth [place] 00 daily. Medical Branch metoprolol 0 Yes [id number] 25mg Take 1 Un nneka succinate 8-29 tablet by ity o f XL 25 mg 24 00:00: mouth [place] hr tablet 00 daily. Medical Branch hydroCHLORO 0 Yes [id number] 25mg Take 1 [facility] thiazide 25 8-29 tablet by ity of mg tablet 00:00: mouth [place] 00 daily. Medical Branch meloxicam 0 Yes [id number] 15mg Take 1 U nivers 15 mg 8-29 tablet by ity of tablet 00:00: mouth [place] 00 daily. Medical Branch metoprolol 0 Yes [id number] 25mg Take 1 Un nneka succinate 8-29 tablet by ity o f XL 25 mg 24 00:00: mouth [place] hr tablet 00 daily. Medical Branch hydroCHLORO 0 Yes [id number] 25mg Take 1 [facility] thiazide 25 8-29 tablet by ity of mg tablet 00:00: mouth [place] 00 daily. Medical Branch meloxicam 0 Yes [id number] 15mg Take 1 U nivers 15 mg 8-29 tablet by ity of tablet 00:00: mouth [place] 00 daily. Medical Branch metoprolol [id number] 2020- No [id number] 25mg Take 1 U nivers succinate 04-28 tablet by ity of XL 25 mg 24 00:00: 00:00 mouth [place] hr tablet 00 :00 daily. [facility] Branch hydroCHLORO 2020- No [id number] 25mg Take 1 [facility] thiazide 25 04-28 tablet by it y of mg tablet 00:00: 00:00 mouth [place] 00 :00 daily. [facility] meloxicam 2020- No [id number] 15mg Take 1 [facility] 15 mg 04-28 tablet by ity of tablet 00:00: 00:00 mouth [place] 00 :00 daily. [facility] metoprolol 2020- No [id number] 25mg Take 1 U nivers succinate 04-28 tablet by ity of XL 25 mg 24 00:00: 00:00 mouth [place] hr tablet 00 :00 daily. [facility] hydroCHLORO 2020- No [id number] 25mg Take 1 [facility] thiazide 25 04-28 tablet by it y of mg tablet 00:00: 00:00 mouth [place] 00 :00 daily. [facility] meloxicam 2020- No [id number] 15mg Take 1 [facility] 15 mg 04-28 tablet by ity of tablet 00:00: 00:00 mouth [place] 00 :00 daily. [facility] Dose 2019-0 No Unknown 7-30 00:00: 00 Dose 2019-0 No Unknown 7-30 00:00: 00 Dose 2019-0 No Unknown 7-30 00:00: 00 Dose 2019-0 No Unknown 7-30 00:00: 00 Dose 2019-0 No Unknown 7-30 00:00: 00 Dose 2019-0 No Unknown 7-30 00:00: 00 METOPROLOL 2019- 2019- No [id number] TAKE 1 U nivers SUCCINATE 03-09 TABLET BY ity of XL 25 mg 24 00:00: 00:00 MOUTH [place] hr tablet 00 :00 EVERY DAY Medic [facility] METOPROLOL 2019- No [id number] TAKE 1 U nivers SUCCINATE 7-04-28 TABLET BY ity of XL 25 mg 24 00:00: 00:00 MOUTH [place] hr tablet 00 :00 EVERY DAY [facility] hydroCHLORO 2019- No [id number] 25mg Take 1 [facility] thiazide 25 5-30 -29 tablet by it y of mg tablet 00:00: 00:00 mouth [place] 00 :00 daily. Medical Branch meloxicam 2019- No [id number] 7.5mg Take 1 Univers (MOBIC) 7.5 5-30 -29 tablet by it y of mg tablet 00:00: 00:00 mouth [place] 00 :00 daily. Medical Branch hydroCHLORO 2019- No [id number] 25mg Take 1 [facility] thiazide 25 -30 -29 tablet by it y of mg tablet 00:00: 00:00 mouth [place] 00 :00 daily. Medical Branch meloxicam 2019- No [id number] 7.5mg Take 1 [facility] (MOBIC) 7.5 -30 [...] by mouth ity of tablet 20:00: at [place] 25 bedtime. Medical Branch aripiprazol 2019-0 Yes [...] by mouth ity of tablet 20:00: at [place] 25 bedtime. Medical Branch DULOXETINE 2019-0 Yes 60mg Take 60 mg U nivers HCL 4-23 by mouth 3 ity of (CYMBALTA 20:00: (three) [place] ORAL) 25 times Medical daily. Branch OLANZapine 2019-0 Yes 20mg Take 20 mg U nivers 20 mg 4-23 by mouth ity of tablet 20:00: at [place] 25 bedtime. Medical Branch DULOXETINE 2019-0 Yes 60mg Take 60 mg U nivers HCL 4-23 by mouth 3 ity of (CYMBALTA 20:00: (three) [place] ORAL) 25 times Medical daily. Branch OLANZapine 2019-0 Yes 20mg Take 20 mg U nivers 20 mg 4-23 by mouth ity of tablet 20:00: at [place] 25 bedtime. [facility] DULOXETINE 2019-0 Yes 60mg Take 60 mg U nivers HCL 4-23 by mouth 3 ity of (CYMBALTA 20:00: (three) [place] ORAL) 25 times Medical daily. Branch OLANZapine 2019-0 Yes 20mg Take 20 mg U nivers 20 mg 4-23 by mouth ity of tablet 20:00: at [place] 25 bedtime. [facility] DULOXETINE 2019-0 Yes 60mg Take 60 mg U nivers HCL 4-23 by mouth 3 ity of (CYMBALTA 20:00: (three) [place] ORAL) 25 times Medical daily. Branch OLANZapine 2019-0 Yes 20mg Take 20 mg U nivers 20 mg 4-23 by mouth ity of tablet 20:00: at [place] 25 bedtime. [facility] aripiprazol 2019-0 Yes [...] by mouth ity of tablet 20:00: at [place] 25 bedtime. [facility] aripiprazol 2019-0 Yes [...] by mouth ity of tablet 20:00: at [place] 25 bedtime. [facility] aripiprazol 2019-0 Yes [...] by mouth ity of tablet 20:00: at [place] 25 bedtime. [facility] aripiprazol 2018-0 Yes [...] by mouth ity of tablet 20:00: at [place] 25 bedtime. [facility] aripiprazol Yes 5mg Take 5 mg U nivers e (ABILIFY 4-23 by mouth 2 ity of ORAL) 20:00: (two) [place] 25 times Medical daily. Branch VITAMIN B Yes Take by Unive rs COMPLEX 3-28 mouth. ity of ORAL 16:11: [address] VITAMIN B Yes Take by Unive rs COMPLEX 3-28 mouth. ity of ORAL 16:11: [address] VITAMIN B Yes Take by Unive rs COMPLEX 3-28 mouth. ity of ORAL 16:11: [address] VITAMIN B Yes Take by Unive rs COMPLEX 3-28 mouth. ity of ORAL 16:11: [address] VITAMIN B Yes Take by Unive rs COMPLEX 3-28 mouth. ity of ORAL 16:11: [address] VITAMIN B Yes Take by Unive rs COMPLEX 3-28 mouth. ity of ORAL 16:11: [address] amlodipine No 1mg 5 mg tablet [...] 8-15 tablet 00:00: 00 cyclobenzap 2018-0 Yes [id number] Bid prn Univers rine 10 mg 8-02 ity of tablet 00:00: [place] 00 [facility] cyclobenzap 2018-0 Yes [id number] Bid prn Univers rine 10 mg 8-02 ity of tablet 00:00: [place] 00 [facility] cyclobenzap 2018-0 Yes [id number] Bid prn Univers rine 10 mg 8-02 ity of tablet 00:00: [place] 00 [facility] cyclobenzap 2018-0 Yes [id number] Bid prn Univers rine 10 mg 8-02 ity of tablet 00:00: [place] 00 [facility] cyclobenzap 2018-0 Yes [id number] Bid prn Univers rine 10 mg 8-02 ity of tablet 00:00: [place] 00 [facility] cyclobenzap 2018-0 Yes [id number] Bid prn Univers rine 10 mg 8-02 ity of tablet 00:00: [place] 00 [facility] cyclobenzap 2018-0 Yes [id number] Bid prn Univers rine 10 mg 8-02 ity of tablet 00:00: [place] 00 [facility] cyclobenzap 2018-0 Yes [id number] Bid prn Univers rine 10 mg 8-02 ity of tablet 00:00: [place] 00 [facility] cyclobenzap 2018-0 Yes [id number] Bid prn Univers rine 10 mg 8-02 ity of tablet 00:00: [place] 00 [facility] cyclobenzap 2018-0 Yes [id number] Bid prn Univers rine 10 mg 8-02 ity of tablet 00:00: [place] 00 [facility] cyclobenzap 2018-0 2020- No [id number] Bid prn Univers rine 10 mg 8-02 02-24 ity of tablet 00:00: 00:00 [place] 00 :00 [facility] cyclobenzap 2018-0 2020- No [id number] Bid prn Univers rine 10 mg 8-02 02-24 ity of tablet 00:00: 00:00 [place] 00 :00 Medical Branch cyclobenzap 2018-0 2020- No [id number] Bid prn Univers rine 10 mg 04-01 ity of tablet 00:00: 00:00 [place] 00 :00 [facility] amlodipine 2018-0 No [...] 5-19 capsule 00:00: 00 DULoxetine 2016-0 Yes [id number] Emanuel sey HCl 30 MG 3-16 Seybold oral 00:00: - Capsule 00 Externa Delayed l Release Sprinkle hydrOXYzine 2016-0 Yes [id number] Ke lsey HCl 25 MG 3-16 Seybold oral Tablet 00:00: - 00 Externa l DULoxetine 2016-0 Yes [id number] Emanuel sey HCl 30 MG 3-16 Seybold oral 00:00: - Capsule 00 Externa Delayed l Release Sprinkle hydrOXYzine 2016-0 Yes [id number] Ke lsey HCl 25 MG 3-16 Seybold oral Tablet 00:00: - 00 Externa l DULoxetine 2016-0 Yes Jelena HCl 30 MG 3-16 Seybold oral 00:00: - Capsule 00 Externa Delayed l Release Sprinkle hydrOXYzine 2016-0 Yes Jelena HCl 25 MG 3-16 Seybold oral Tablet 00:00: - 00 Externa l DULoxetine 2016-0 Yes [id number] Emanuel sey HCl 30 MG 3-16 Seybold oral 00:00: - Capsule 00 Externa Delayed l Release Sprinkle hydrOXYzine 2016-0 Yes [id number] Ke lsey HCl 25 MG 3-16 Seybold oral Tablet 00:00: - 00 Externa l DULoxetine 2016-0 Yes [id number] Emanuel sey HCl 30 MG 3-16 Seybold oral 00:00: - Capsule 00 Externa Delayed l Release Sprinkle hydrOXYzine 2016-0 Yes [id number] Ke lsey HCl 25 MG 3-16 Seybold oral Tablet 00:00: - 00 Externa l DULoxetine 2016-0 Yes [id number] Emanuel sey HCl 30 MG 3-16 Seybold oral 00:00: - Capsule 00 Externa Delayed l Release Sprinkle hydrOXYzine 2016-0 Yes [id number] Ke lsey HCl 25 MG 3-16 Seybold oral Tablet 00:00: - 00 Externa l DULoxetine 2016-0 2023- No [id number] Ke lsey HCl 30 MG 3-16 04-24 Seybold oral 00:00: 00:00 - Capsule 00 :00 Externa Delayed l Release Sprinkle hydrOXYzine 2016-0 2023- No [id number] K elsey HCl 25 MG 3-16 04-24 [...] + years (18+, 12-17, 6-11) Moderna COVID-19 2021-10-19 Completed Vaccine 00:00:00 Covid-19 Vaccine 2021-10-19 Completed Jelena delgadold Moderna (Spikevax), 00:00:00 - Ext ernal Mrna-lnp, Bradley Protein, Pf Covid-19 Vaccine 2021-10-19 Completed Jelena Umaña eybold Moderna (Spikevax), 00:00:00 - Ext ernal Mrna-lnp, Bradley Protein, Pf Covid-19 Vaccine 2021-10-19 Completed Jelena Umaña eybold Moderna (Spikevax), 00:00:00 - Ext ernal Mrna-lnp, [...] COVID-19 2021-10-19 Completed Vaccine 00:00:00 Moderna COVID-19 2021-09-07 Completed Vaccine 00:00:00 Moderna COVID-19 2021-09-07 Completed Vaccine 00:00:00 Moderna COVID-19 2021-09-07 Completed Vaccine 00:00:00 Covid-19 Vaccine 2021-09-07 Completed Jelena newman Moderna (Spikevax), 00:00:00 - Ext ernal Mrna-lnp, Bradley Protein, Pf Covid-19 Vaccine 2021-09-07 Completed Jelena enwman Moderna (Spikevax), 00:00:00 - Ext ernal Mrna-lnp, Bradley Protein, Pf Covid-19 Vaccine 2021-09-07 Completed Jleena newman Moderna (Spikevax), 00:00:00 - Ext ernal Mrna-lnp, Bradley Protein, Pf Covid-19 Vaccine 2021-09-07 Completed Jelena newman Moderna (Spikevax), 00:00:00 - Ext ernal Mrna-lnp, Bradley Protein, Pf Covid-19 Vaccine 2021-09-07 Completed Jelena Umaña eybold Moderna (Spikevax), 00:00:00 - Ext ernal Mrna-lnp, Bradley Protein, Pf Covid-19 Vaccine 2021-09-07 Completed Jelena Umaña eybold Moderna (Spikevax), 00:00:00 - Ext ernal Mrna-lnp, Bradley Protein, Pf Covid-19 Vaccine 2021-09-07 Completed Jelena Umaña eybold Moderna (Spikevax), 00:00:00 - Ext ernal Mrna-lnp, Bradley Protein, Pf Covid-19 Vaccine 2021-09-07 Completed Jelena Leeroy eybold Moderna (Spikevax), 00:00:00 - Ext ernal Mrna-lnp, [...] Completed Jelena Seyb old Mcv4,unspecified 00:00:00 - Regulatory Affairs Intern 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 Hepatitis A 2008-02-18 Completed Jelena Seybol d 00:00:00 - External HPV 4 (Human 2008-02-18 Completed Jelena Seybo ld Papillomavirus) 00:00:00 - Externa l Meningococcal 2008-02-18 Completed Jelena Seyb old Mcv4,unspecified 00:00:00 - Regulatory Affairs Intern 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 Hepatitis A 2008-02-18 Completed Jelena Seybol d 00:00:00 - External HPV 4 (Human 2008-02-18 Completed Jelena Seybo ld Papillomavirus) 00:00:00 - Externa l Meningococcal 2008-02-18 Completed Jelena Seyb old Mcv4,unspecified 00:00:00 - Regulatory Affairs Intern 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 Hepatitis A 2008-02-18 Completed Jelena Seybol d 00:00:00 - External Hepatitis A 2008-02-18 Completed Jelena Seybol d 00:00:00 - External HPV 4 (Human 2008-02-18 Completed Jelena Seybo ld Papillomavirus) 00:00:00 - Externa l Meningococcal 2008-02-18 Completed Jelena Seyb old Mcv4,unspecified 00:00:00 - Regulatory Affairs Intern 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 Hepatitis A 2008-02-18 Completed Jelena Seybol d 00:00:00 - External HPV 4 (Human 2008-02-18 Completed Jelena Seybo ld Papillomavirus) 00:00:00 - Externa l Meningococcal 2008-02-18 Completed Jelena Seyb old Mcv4,unspecified 00:00:00 - Regulatory Affairs Intern 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 HPV 4 (Human 2008-02-18 Completed Jelena Seybo ld Papillomavirus) 00:00:00 - Externa l Meningococcal 2008-02-18 Completed Jelena Seyb old Mcv4,unspecified 00:00:00 - Regulatory Affairs Intern 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 Hepatitis A 2008-02-18 Completed Jelena Seybol d 00:00:00 - External HPV 4 (Human 2008-02-18 Completed Jelena Seybo ld Papillomavirus) 00:00:00 - Externa l Meningococcal 2008-02-18 Completed Jelena Seyb old Mcv4,unspecified 00:00:00 - Regulatory Affairs Intern 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 Hepatitis A 2008-02-18 Completed Ejlena Seybol d 00:00:00 - External HPV 4 (Human 2008-02-18 Completed Jelena Seybo ld Papillomavirus) 00:00:00 - Externa l Meningococcal 2008-02-18 Completed Jelena Seyb old Mcv4,unspecified 00:00:00 - Regulatory Affairs Intern 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 Td (adult), 2 2006-05-25 Completed [...] 15:09:00 88 mm[Hg] Unive rsity of pressure [place] [facility] Heart rate 2020-09-07 15:09:00 76 /min [facility] [place] [facility] Body height 2020-09-07 15:09:00 160 cm [facility] [place] [facility] Body weight 2020-09-07 15:09:00 114.306 kg [facility] [place] [facility] BMI 2020-09-07 15:09:00 44.64 kg/m2 [facility] [place] [facility] Systolic blood 2020-09-07 15:09:00 126 mm[Hg] Univer sity of pressure [place] [facility] Diastolic blood 2020-09-07 15:09:00 88 mm[Hg] Unive rsity of pressure [place] [facility] Heart rate 2020-09-07 15:09:00 76 /min [facility] [place] [facility] Body height 2020-09-07 15:09:00 160 cm [facility] [place] [facility] Body weight 2020-09-07 15:09:00 114.306 kg [facility] [place] [facility] BMI 2020-09-07 15:09:00 44.64 kg/m2 [facility] [place] [facility] Respiratory rate 2020-08-02 16:44:00 20 /min [facility] [place] [facility] Body height 2020-08-02 16:44:00 160 cm [facility] [place] [facility] Body weight 2020-08-02 16:44:00 114.352 kg [facility] [place] [facility] BMI 2020-08-02 16:44:00 44.66 kg/m2 [facility] [place] [facility] Systolic blood 2020-08-02 16:44:00 113 mm[Hg] Univer sity of pressure [place] [facility] Diastolic blood 2020-08-02 16:44:00 66 mm[Hg] Unive rsity of pressure [place] [facility] Heart rate 2020-08-02 16:44:00 76 /min [facility] [place] [facility] Body temperature 2020-08-02 16:44:00 36 Mera [facility] [place] [facility] Systolic blood 2020-05-17 16:06:00 125 mm[Hg] Univer sity of pressure [place] [facility] Diastolic blood 2020-05-17 16:06:00 76 mm[Hg] Unive rsity of pressure [place] [facility] Heart rate 2020-05-17 16:06:00 93 /min [facility] [place] [facility] Body temperature 2020-05-17 16:06:00 36.44 Mera [facility] [place] [facility] Respiratory rate 2020-05-17 16:06:00 18 /min [facility] [place] [facility] Body height 2020-05-17 16:06:00 160 cm [facility] [place] [facility] Body weight 2020-05-17 16:06:00 105.688 kg [facility] [place] [facility] BMI 2020-05-17 16:06:00 41.27 kg/m2 [facility] [place] [facility] Systolic blood 2020-03-08 15:04:00 108 mm[Hg] Univer sity of pressure [place] [facility] Diastolic blood 2020-03-08 15:04:00 69 mm[Hg] Unive rsity of pressure [place] [facility] Heart rate 2020-03-08 15:04:00 74 /min [facility] [place] [facility] Body temperature 2020-03-08 15:04:00 36.61 Mera [facility] [place] [facility] Respiratory rate 2020-03-08 15:04:00 20 /min [facility] [place] [facility] Body height 2020-03-08 15:04:00 160 cm [facility] [place] [facility] Body weight 2020-03-08 15:04:00 112.583 kg [facility] [place] [facility] BMI 2020-03-08 15:04:00 43.97 kg/m2 [facility] [place] [facility] Systolic blood 2019-10-25 14:56:00 128 mm[Hg] Univer sity of pressure [place] [facility] Diastolic blood 2019-10-25 14:56:00 92 mm[Hg] Unive rsity of pressure [place] [facility] Heart rate 2019-10-25 14:56:00 72 /min [facility] [place] [facility] Body temperature 2019-10-25 14:56:00 36.67 Mera [facility] [place] [facility] Body height 2019-10-25 14:56:00 160 cm [facility] [place] [facility] Body weight 2019-10-25 14:56:00 110.904 kg [facility] [place] [facility] BMI 2019-10-25 14:56:00 43.31 kg/m2 [facility] [place] [facility] Oxygen saturation in 2019-10-25 14:56:00 99 /min [facility] Arterial blood by [facility] nereida Pulse oximetry Branch Systolic [...] 2019-10-24 17:13:00 110.133 kg [facility] [place] [facility] BMI 2019-10-24 17:13:00 43.01 kg/m2 [facility] [place] [facility] Oxygen saturation in 2019-10-24 17:13:00 99 /min [facility] Arterial blood by [facility] Pulse oximetry Branch Systolic blood 2019-09-29 16:38:00 93 mm[Hg] Univer sity of pressure [place] [facility] Diastolic blood 2019-09-29 16:38:00 64 mm[Hg] Unive rsity of pressure [place] [facility] Heart rate 2019-09-29 16:38:00 77 /min [facility] [place] [facility] Body temperature 2019-09-29 16:38:00 36.5 Mera [facility] [place] [facility] Respiratory rate 2019-09-29 16:38:00 20 /min [facility] [place] [facility] Body height 2019-09-29 16:38:00 160 cm [facility] [place] [facility] Body weight 2019-09-29 16:38:00 109.77 kg [facility] [place] [facility] BMI 2019-09-29 16:38:00 42.87 kg/m2 [facility] [place] [facility] Systolic blood 2019-04-28 14:39:00 105 mm[Hg] Univer sity of pressure [place] [facility] Diastolic blood 2019-04-28 14:39:00 62 mm[Hg] Unive rsity of pressure [place] [facility] Heart rate 2019-04-28 14:39:00 87 /min [facility] [place] [facility] Body temperature 2019-04-28 14:39:00 36.94 Mera [facility] Respiratory rate 2019-04-28 14:39:00 18 /min [facility] Body height 2019-04-28 14:39:00 160 cm [facility] Body weight 2019-04-28 14:39:00 123.832 kg [facility] BMI 2019-04-28 14:39:00 48.36 kg/m2 [facility] BP Systolic 2022-09-10 11:46:00 168 mm[Hg] [...] Source Performed REFERRAL- 2020-09-27 06:01:00 Doctor Lucina, [facility] REQUEST/RESPONSE [facility] MR KNEE LEFT WO CONTRAST 2020-08-20 18:12:04 Alexandre Delgado [facility] NOTICE OF PRIVACY 2020-08-02 06:01:00 Doctor Lucina, [facility] PRACTICES [facility] AGREEMENTS AUTHORIZATIONS 2020-08-02 06:01:00 [facility]OC[facility] ASSIGNMENTS (FORM 2001) VACCINATIONS - CONSENTS, 2020-05-17 05:01:00 [facility] EL[facility], HISTORY [facility] XR KNEE 3 VW LEFT 2020-03-16 13:13:36 Alexandre Delgado [facility] SCANNED LAB RESULTS 2020-03-08 05:01:00 Doctor Lucina, [facility] ASSIGNMENT OF BENEFITS 2020-02-10 13:57:41 [facility] - PRESCRIPTION / 2019-09-08 06:01:00 Doctor Lucina, [facility] ORDER [facility] AGREEMENTS AUTHORIZATIONS 2019-04-28 05:01:00 [facility] AND IRREVOCABLE [facility] ASSIGNMENTS (FORM 2001) 15932 Ecg Routine Ecg 2018-06-14 00:00:00 W/least 12 Lds W/i r Plan of Care Planned Activity Planned Date Details Comments Source Goal Plan of Care Note [code = 21071-4] Goal Plan of Care Note [code = 18181-6] Goal Plan of Care Note [code = 26403-8] Goal Plan of Care Note [code = 44982-7] Goal Plan of Care Note [code = 33809-2] Goal Plan of Care Note [code = 78869-9] Goal Plan of Care Note [code = 60513-0] Goal Plan of Care Note [code = 50404-2] Goal Plan of Care Note [code = 62545-1] Goal Plan of Care Note [code = 30910-1] Goal Plan of Care Note [code = 32064-5] Goal Plan of Care Note [code = 13971-2] Goal Plan of Care Note [code = 25016-0] Goal Plan of Care Note [code = 95278-9] Goal Plan of Care Note [code = 26947-0] Goal Plan of Care Note [code = 67231-1] Goal Plan of Care Note [code = 71950-3] Goal Plan of Care Note [code = 37606-8] Goal Plan of Care Note [code = 24915-6] Goal Plan of Care Note [code = 79924-0] Goal Plan of Care Note [code = 43987-1] Goal Plan of Care Note [code = 85389-5] Goal Plan of Care Note [code = 62672-2] Goal Plan of Care Note [code = 75511-2] Goal Plan of Care Note [code = 12905-7] Goal Plan of Care Note [code = 83363-7] Goal Plan of Care Note [code = 32827-2] Goal Plan of Care Note [code = 75449-5] Goal Plan of Care Note [code = 62099-2] Goal Plan of Care Note [code = 03034-2] Goal Plan of Care Note [code = 49958-8] Goal Plan of Care Note [code = 32331-3] Goal Plan of Care Note [code = 39715-5] Goal Plan of Care Note [code = 47568-2] Goal Plan of Care Note [code = 76789-0] Goal Plan of Care Note [code = 32321-5] Goal Plan of Care Note [code = 31953-4] Goal Plan of Care Note [code = 51641-5] Goal Plan of Care Note [code = 73889-5] Goal Plan of Care Note [code = 94082-0] Goal Plan of Care Note [code = 96374-4] Goal Plan of Care Note [code = 37147-1] Goal Plan of Care Note [code = 75160-5] Goal Plan of Care Note [code = 95271-9] Goal Plan of Care Note [code = 26646-0] Goal Plan of Care Note [code = 53331-1] Goal Plan of Care Note [code = 00121-0] Goal Plan of Care Note [code = 04351-7] Goal Plan of Care Note [code = 06101-6] Goal Plan of Care Note [code = 42197-4] Goal Plan of Care Note [code = 36971-4] Goal Plan of Care Note [code = 14482-2] Goal Plan of Care Note [code = 50332-7] Goal Plan of Care Note [code = 05203-6] Goal Plan of Care Note [code = 30198-7] Goal Plan of Care Note [code = 28838-8] Goal Plan of Care Note [code = 72634-2] Goal Plan of Care Note [code = 69288-9] Goal Plan of Care Note [code = 95379-0] Goal Plan of Care Note [code = 17925-2] Goal Plan of Care Note [code = 95061-3] Goal Plan of Care Note [code = 39833-1] Goal Plan of Care Note [code = 05517-8] Goal Plan of Care Note [code = 19867-6] Goal Plan of Care Note [code = 22353-9] Goal Plan of Care Note [code = 19053-4] Goal Plan of Care Note [code = 47463-4] Goal Plan of Care Note [code = 32361-6] Goal Plan of Care Note [code = 95065-1] Goal Plan of Care Note [code = 73258-5] Goal Plan of Care Note [code = 21448-9] Goal Plan of Care Note [code = 41230-7] Goal Plan of Care Note [code = 29544-1] Goal Plan of Care Note [code = 88979-0] Goal Plan of Care Note [code = 81446-4] Goal Plan of Care Note [code = 01854-1] Goal Plan of Care Note [code = 17305-6] Goal Plan of Care Note [code = 54722-6] Goal Plan of Care Note [code = 59923-3] Goal Plan of Care Note [code = 44215-7] Goal Plan of Care Note [code = 40053-0] Goal Plan of Care Note [code = 91211-3] Goal Plan of Care Note [code = 99237-4] Goal Plan of Care Note [code = 03756-1] Goal Plan of Care Note [code = 95902-4] Goal Plan of Care Note [code = 99375-4] Goal Plan of Care Note [code = 16656-2] Goal Plan of Care Note [code = 30211-1] Goal Plan of Care Note [code = 03780-6] Goal Plan of Care Note [code = 75518-7] Goal Plan of Care Note [code = 05265-7] Goal Plan of Care Note [code = 54461-8] Goal Plan of Care Note [code = 67271-4] Goal Plan of Care Note [code = 29486-2] Goal Plan of Care Note [code = 83183-0] Goal Plan of Care Note [code = 32878-1] Goal Plan of Care Note [code = 70713-6] Goal Plan of Care Note [code = 43219-9] Goal Plan of Care Note [code = 41982-4] Goal Plan of Care Note [code = 68393-5] Goal Plan of Care Note [code = 60278-4] Goal Plan of Care Note [code = 55387-7] Goal Plan of Care Note [code = 15797-6] Goal Plan of Care Note [code = 13860-9] Goal Plan of Care Note [code = 16957-1] Goal Plan of Care Note [code = 60285-9] Goal Plan of Care Note [code = 32197-6] Goal Plan of Care Note [code = 58539-1] Goal Plan of Care Note [code = 56859-1] Encounters Start End Encounter Admission Attending Care Care Encounter Source Date/Time Date/Time Type Type Clinicians Facility Department ID 2023-04-28 2023-04-28 Outpatient JELENA VICK [id number] Jelena 09:00:00 09:00:00 DARLIN Seybo ld 2023-04-16 2023-04-16 Outpatient JELENA STOKES [id number] Jelena 10:30:00 10:30:00 SPENSER Seybol d 2023-03-23 2023-03-23 Outpatient GAURAV PURVIS [id number] Jelena 10:30:00 10:30:00 Seybol d 2023-02-02 2023-02-02 Outpatient JELENA STOKES [id number] Jelena 09:30:00 09:30:00 SPENSER Seybol d 2023-01-28 2023-01-28 Outpatient JELENA BRIONES [id number] Jelena 11:00:00 11:00:00 AHMED Seybol d 2023-01-18 2023-01-18 Outpatient HUNDL, JELENA KNIGHT [id number] Jelena 00:00:00 00:00:00 ROBYN Seybol d 2023-01-17 2023-01-17 Outpatient PREZAS, JELENA KNIGHT [id number] Jelena 00:00:00 00:00:00 BYRON Seybol d 2023-01-14 2023-01-14 Outpatient HUNDL, JELENA KNIGHT [id number] Jelena 00:00:00 00:00:00 ROBYN Seybol d 2023-01-07 2023-01-07 Outpatient HUNDL, JELENA KNIGHT [id number] Jelena 00:00:00 00:00:00 ROBYN Seybol d 2023-01-06 2023-01-06 Outpatient KAWAR, GAURAV JELENA KNIGHT [id number] Jelena 00:00:00 00:00:00 Seybol d 2023-01-06 2023-01-06 Outpatient HUNDL, JELENA KNIGHT [id number] Jelena 00:00:00 00:00:00 ROBYN Seybol d 2023-01-06 2023-01-06 Outpatient MERRILL, JELENA KNIGHT [id number] Jelena 00:00:00 00:00:00 JAROD Seybol d 2023-01-01 2023-01-01 Outpatient HUNDL, JELENA KNIGHT [id number] Jelena 10:30:00 10:30:00 ROBYN Seybol d 2023-01-01 2023-01-01 Outpatient HUNDL, JELENA KNIGHT [id number] Jelena 00:00:00 00:00:00 ROBYN Seybol d 2022-12-31 2022-12-31 Outpatient PLABPA JELENA KNIGHT [id number] Jelena 09:00:00 09:00:00 Seybol d 2022-12-30 2022-12-30 Outpatient HUNDL, JELENA KNIGHT [id number] Jelena 10:30:00 10:30:00 ROBYN Seybol d 2022-12-29 2022-12-29 Outpatient LAB90 JELENA KNIGHT [id number] Jelena 11:20:00 11:20:00 Seybol d 2022-12-29 2022-12-29 Outpatient COOKIE JELENA KNIGHT [id number] Jelena 10:30:00 10:30:00 ROBYN Seybol d 2022-12-29 2022-12-29 Outpatient FARIDAJessica JELENA KNIGHT [id number] Jelena 00:00:00 00:00:00 ROBYN Seybol d 2022-12-29 2022-12-29 Outpatient ANSELMO JELENA KNIGHT [id number] Jelena 00:00:00 00:00:00 AHMED Seybol d 2022-12-26 2022-12-26 Outpatient PLABPA JELENA KNIGHT [id number] Jelena 09:00:00 09:00:00 Seybol d 2022-12-26 2022-12-26 Outpatient JELENA BYNUM [id number] Jelena 00:00:00 00:00:00 JENNIFER Seybol d 2022-12-26 2022-12-26 Outpatient JELENA MALHOTRA [id number] Jelena 00:00:00 00:00:00 BYRON Seybol d 2022-12-25 2022-12-25 Outpatient HYUNSIVADANDRE KNIGTH [id number] Jelena 00:00:00 00:00:00 Seybol d 2022-12-24 2022-12-24 Outpatient PLABPA JELENA KNIGHT [id number] Jelena 11:30:00 11:30:00 Seybol d 2022-12-22 2022-12-22 Outpatient GAURAV PURVIS [id number] Jelena 09:00:00 09:00:00 Seybol d 2022-12-22 2022-12-22 Outpatient COOKIE JELENA KNIGHT [id number] Jelena 00:00:00 00:00:00 ROBYN Seybol d 2022-12-20 2022-12-20 Outpatient JELENA CRUZ [id number] Jelena 00:00:00 00:00:00 JALYN Seybol d 2022-12-19 2022-12-19 Outpatient JELENA MALHOTRA [id number] Jelena 00:00:00 00:00:00 BYRON Seybol d 2022-12-18 2022-12-18 Outpatient COOKIE JELENA KNIGHT [id number] Jelena 00:00:00 00:00:00 ROBYN Seybol d 2022-12-18 2022-12-18 Outpatient COOKIE JELENA KNIGHT [id number] Jelena 00:00:00 00:00:00 ROBYN Seybol d 2022-12-15 2022-12-15 Outpatient VERÓNICAJELENAADELINE JELENA KNIGHT [id number] Jelena 00:00:00 00:00:00 MD ANKITA Seybol d 2022-12-15 2022-12-15 Outpatient JELENA MARTINEZ [id number] Jelena 00:00:00 00:00:00 MANOLO Seybol d 2022-12-15 2022-12-15 Outpatient JELENA GIVENS [id number] Jelena 00:00:00 00:00:00 GAUTAM Seybol d 2022-12-12 2022-12-12 Outpatient JELENA GIVENS [id number] Jelena 10:30:00 10:30:00 GAUTAM Seybol d 2022-12-12 2022-12-12 Outpatient JELENA KNIGHT [id number] Jelena 00:00:00 00:00:00 Seybol d 2022-12-12 2022-12-12 Outpatient JELENA MALHOTRA [id number] Jelena 00:00:00 00:00:00 BYRON Seybol d 2022-12-11 2022-12-11 Outpatient JELENA MALHOTRA [id number] Jelena 00:00:00 00:00:00 BYRON Seybol d 2022-12-08 2022-12-08 Outpatient MERRILLJELENA AN [id number] Jelena 10:40:00 10:40:00 JAROD Seybol d 2022-12-08 2022-12-08 Outpatient JELENA KNIGHT [id number] Jelena 10:25:00 10:25:00 Seybol d 2022-12-08 2022-12-08 Outpatient GAURAV PURVIS [id number] Jelena 08:30:00 08:30:00 Seybol d 2022-12-08 2022-12-08 Outpatient HUNDL JELENA KNIGHT [id number] Jelena 00:00:00 00:00:00 ROBYN Seybol d 2022-12-04 2022-12-04 Outpatient PREZAS, JELENA KNIGHT [id number] Jelena 00:00:00 00:00:00 BYRON Seybol d 2022-12-04 2022-12-04 Outpatient MERRILL, JELENA KNIGHT [id number] Jelena 00:00:00 00:00:00 JAROD Seybol d 2022-12-04 2022-12-04 Outpatient JELENA KNIGHT [id number] Jelena 00:00:00 00:00:00 Seybol d 2022-12-04 2022-12-04 Outpatient FARIDAL, JELENA KNIGHT [id number] Jelena 00:00:00 00:00:00 ROBYN Seybol d 2022-12-01 2022-12-01 Outpatient FARIDALJELENA [id number] Jelena 00:00:00 00:00:00 ROBYN Seybol d 2022-11-27 2022-11-[address], TECH JELENA KNIGHT [id number] Jelena 10:30:00 10:30:00 Seybol d 2022-11-27 2022-11-27 Outpatient MYKELFAUSTO KNIGHT [id number] Jelena 00:00:00 00:00:00 MD ANKITA Seybol d 2022-11-27 2022-11-27 Outpatient MYRADHA KNIGHT [id number] Jelena 00:00:00 00:00:00 MD ANKITA Seybol d 2022-11-21 2022-11-21 Outpatient FARIDAL, JELENA KNIGHT [id number] Jelena 00:00:00 00:00:00 ROBYN Seybol d 2022-11-20 2022-11-20 Outpatient SFA SFA [id number] Jarod 10:08:21 10:08:21 0323 F Lee 2022-11-19 2022-11-19 Outpatient HUNDL, JELENA KNIGHT [id number] Jelena 00:00:00 00:00:00 ROBYN Seybol d 2022-11-14 2022-11-14 Outpatient FARIDAL, JELENA JELENA [id number] Jelena 00:00:00 00:00:00 ROBYN Seybol d 2022-11-14 2022-11-14 Outpatient JELENA KNIGHT [id number] Jelena 00:00:00 00:00:00 Seybol d 2022-11-11 2022-11-11 Outpatient FARIDAL, JELENA KNIGHT [id number] Jelena 00:00:00 00:00:00 ROBYN Seybol d 2022-11-07 2022-11-07 Outpatient NAVA, JELENA KNIGHT [id number] Jelena 00:00:00 00:00:00 DARLIN Seybo ld 2022-11-07 2022-11-07 Outpatient VICK, JELENA KNIGHT [id number] Jelena 00:00:00 00:00:00 DARLIN Seybo ld 2022-11-07 2022-11-07 Outpatient VICK, JELENA KNIGHT [id number] Jelena 00:00:00 00:00:00 DARLIN Seybo ld 2022-11-07 2022-11-07 Outpatient VICK, JELENA KNIGHT [id number] Jelena 00:00:00 00:00:00 DARLIN Seybo ld 2022-11-07 2022-11-07 Outpatient COOKIE, JELENA KNIGHT [id number] Jelena 00:00:00 00:00:00 ROBYN Seybol d 2022-11-07 2022-11-07 Outpatient FARIDAL, JELENA KNIGHT [id number] Jelena 00:00:00 00:00:00 ROBYN Seybol d 2022-11-07 2022-11-07 Outpatient HUNDL, JELENA KNIGHT [id number] Jelena 00:00:00 00:00:00 ROBYN Seybol d 2022-11-07 2022-11-07 Outpatient HUNDL, JELENA KNIGHT [id number] Jelena 00:00:00 00:00:00 ROBYN Seybol d 2022-11-07 2022-11-07 Outpatient HUNDL, JELENA KNIGHT [id number] Jelena 00:00:00 00:00:00 ROBYN Seybol d 2022-11-07 2022-11-07 Outpatient JELENA GARY JELENA [id number] Jelena 00:00:00 00:00:00 ROBYN Seybol d 2022-10-30 2022-10-30 Outpatient SFA SFA [id number] Jarod 08:26:44 08:26:44 0302 F Lee 2022-10-30 2022-10-30 Outpatient FARIDAJessica JELENA KNIGHT [id number] Jelena 00:00:00 00:00:00 ROBYN Seybol d 2022-10-29 2022-10-29 Outpatient COOKIE JELENA KNIGHT [id number] Jelena 00:00:00 00:00:00 ROBYN Seybol d 2022-10-29 2022-10-29 Outpatient FARIDAJessica JELENA KNIGHT [id number] Jelena 00:00:00 00:00:00 ROBYN Seybol d 2022-10-29 2022-10-29 Outpatient FARIDAJessica JELENA KNIGHT [id number] Jelena 00:00:00 00:00:00 ROBYN Seybol d 2022-10-29 2022-10-29 Outpatient ANVA JELENA KNIGHT [id number] Jelena 00:00:00 00:00:00 DARLIN Seybo ld 2022-10-28 2022-10-28 Outpatient LAB47 JELENA KNIGHT [id number] Jelena 09:45:00 09:45:00 Seybol d 2022-10-28 2022-10-28 Outpatient JELENA VICK [id number] Jelena 09:00:00 09:00:00 DARLIN Seybo ld 2022-10-23 2022-10-23 Outpatient FARIDAJessica JELENA KNIGHT [id number] Jelena 00:00:00 00:00:00 ROBYN Seybol d 2022-10-22 2022-10-22 Outpatient COOKIE JELENA KNIGHT [id number] Jelena 08:00:00 08:00:00 ROBYN Seybol d 2022-10-13 2022-10-13 Outpatient SFA SFA [id number] Jarod 11:24:16 11:24:16 0213 F Lee 2022-10-10 2022-10-10 Outpatient LAB90 JELENA KNIGHT [id number] Jelena 09:25:00 09:25:00 Seybol d 2022-10-10 2022-10-10 Outpatient HUNDL, JELENA KNIGHT [id number] Jelena 08:30:00 08:30:00 ROBYN Seybol d 2022-10-10 2022-10-10 Outpatient HUNDL, JELENA KNIGHT [id number] Jelena 00:00:00 00:00:00 ROBYN Seybol d 2022-10-09 2022-10-09 Outpatient HUNDL, JELENA KNIGHT [id number] Jelena 08:30:00 08:30:00 ROBYN Seybol d 2022-10-09 2022-10-09 Outpatient HUNDL, JELENA KNIGHT [id number] Jelena 00:00:00 00:00:00 ROBYN Seybol d 2022-09-30 2022-09-30 Outpatient HUNDL, JELENA KNIGHT [id number] Jelena 00:00:00 00:00:00 ROBYN Seybol d 2022-09-26 2022-09-26 Outpatient HUNDL, JELENA KNIGHT [id number] Jelena 00:00:00 00:00:00 ROBYN Seybol d 2022-09-24 2022-09-24 Outpatient LAB90 JELENA KNIGHT [id number] Jelena 17:05:00 17:05:00 Seybol d 2022-09-24 2022-09-24 Outpatient HUNDL, JELENA KNIGHT [id number] Jelena 11:00:00 11:00:00 ROBYN Seybol d 2022-09-22 2022-09-22 Outpatient [facility] [id number] Jarod 09:21:24 09:21:24 0123 F Lee 2022-09-22 2022-09-22 Outpatient HUNDL, JELENA KNIGHT [id number] Jelena 00:00:00 00:00:00 ROBYN Seybol d 2022-09-17 2022-09-17 Outpatient HUNDL, JELENA KNIGHT [id number] Jelena 00:00:00 00:00:00 ROBYN Seybol d 2022-09-12 2022-09-12 Outpatient HUNDL, JELENA KNIGHT [id number] Jelena 00:00:00 00:00:00 ROBYN Eatonol tierra 2022-09-11 2022-09-11 Outpatient JELENA GARY JELENA [id number] Jelena 00:00:00 00:00:00 ROBYN Eatonol tierra 2022-09-10 2022-09-10 Outpatient SFA SFA [id number] Jarod 11:36:44 11:36:44 0111 F Lee 2022-09-10 2022-09-10 Outpatient [id number] 00:00:00 00:00:00 Visit 87da-47c3 7da-47c3-b -ny41-1k0 [id number] 2022-09-09 2022-09-09 Outpatient LAB90 JELENA JELENA [id number] Jelena 09:30:00 09:30:00 Chencho mayorga 2022-09-09 2022-09-09 Outpatient JELENA GARY JELENA [id number] Jelena 08:30:00 08:30:00 ROBYN Eatonol tierra 2022-09-09 2022-09-09 Outpatient JELENA GARY JELENA [id number] Jelena 00:00:00 00:00:00 ROBYN mayorga 2022-09-04 2022-09-04 Outpatient SFA SFA [id number] Jarod 08:29:33 08:29:33 0105 F Lee 2022-09-04 2022-09-04 Outpatient [id number] 00:00:00 00:00:00 Visit 7fa1-8oy0 bd9-4ec7-b -bbc8-d95 bc8-d957ab [id number] 2022-08-28 2022-08-28 Outpatient SFA SFA [id number] Jarod 11:35:11 11:35:11 1229 F Lee 2022-08-28 2022-08-28 Outpatient [id number] 00:00:00 00:00:00 Visit 010b-47c2 10b-47c2-b -m8o1-z26 6a6-c120p5 [id number] [id number] 2022-05-24 2022-05-24 emergency [id number] 15:15:00 18:38:00 2381-551e 81-551e-843 36 -843c-ca8 [id number]-[id number] 5eb 2022-03-15 2022-03-15 Outpatient AMBREEN_FAR [facility] 761 [place] 10:56:00 10:56:00 HANA 0716 [facility] 2020-11-29 2020-11-29 Outpatient [facility] [id number] Univers 15:30:00 15:30:00 ANNEMARIE magaña [facility] 2020-10-23 2020-10-23 Telephone Alexandre Delgado 1.2.840.114 [id number] [facility] 00:00:00 00:00:00 [facility] 350.1.13.10 [place] [id number] [facility] [address] 2020-10-23 2020-10-23 Telephone Alexandre Delgado 1.2.840.114 [id number] 00:00:00 00:00:00 [facility] 350.1.13.10 HEALTH 4.2.7.2.686 UNIT [id number] 362 2020-10-12 2020-10-12 Outpatient Gracia [facility] [id number] Univers 09:00:00 09:00:00 SHEY arshad [facility] 2020-09-27 2020-09-27 Orders Doctor CONNER 1.2.840.114 [id number] Univers 00:00:00 00:00:00 Only UnassignedLESLEY 350.1.13.10 ity of [place] [facility] 4.2.7.2.686 Marvel as [phone] [facility] [address] 2020-09-27 2020-09-27 Orders Doctor CONNER 1.2.840.114 [id number] 00:00:00 00:00:00 Only UnassignedLESLEY 350.1.13.10 [place] [facility] 4.2.7.2.686 [id number] 009 2020-09-20 2020-09-20 Telephone Tash [facility] 1.2.840.114 [id number] Univers 00:00:00 00:00:00 Shey Cabral 350.1.13.10 it y of Surgical 4.2.7.2.686 Marvel as Specialti [id number] Me dical es 198 [facility] 2020-09-20 2020-09-20 Telephone Tash [facility] 1.2.840.114 [id number] 00:00:00 00:00:00 Shey Cabral 350.1.13.10 Surgical 4.2.7.2.686 Specialti [id number] es 198 [place] 2020-09-07 2020-09-07 Office Tash [facility] 1.2.639.505 [id number] Univers 09:03:53 09:52:26 Visit Shey Cabral 350.1.13.10 it y of Surgical 4.2.7.2.686 Marvel as Specialti [id number] Wa dical es 198 [facility] 2020-09-07 2020-09-07 Office Tash [facility] 1.2.966.338 [id number] 09:03:53 09:52:26 Visit Shey Cabral 350.1.13.10 Surgical 4.2.7.2.686 Specialti [id number] es 198 [place] 2020-09-07 2020-09-07 Outpatient R TASH [facility] [id number] Univers 09:00:00 09:00:00 SHEY tafoyaemmy [facility] 2020-08-30 2020-08-30 Outpatient R TASH [facility] [id number] Univers 08:30:00 08:30:00 [facility] 2020-08-20 2020-08-20 [facility] Alexandre Delgado [facility] 1.2.840.114 [id number] Univers 10:11:58 23:59:00 Encounter Health 350.1.13.10 [place] [id number] [place] [address] Branch ([facility]) 2020-08-20 2020-08-20 Outpatient R SANDY [facility] [id number] Univers 10:11:58 23:59:00 ity [facility] 2020-08-16 2020-08-16 Refgreg Sosa [facility] 1.2.840.114 [id number] Univers 00:00:00 00:00:00 [facility] 350.1.13.10 it y of [place] 4.2.7.2.686 Marvel as Professio [phone] [facility] [address] 2020-08-02 2020-08-02 Office Care, Ang Primary [place] 1.2.840 .114 [id number] Univers 10:40:31 12:20:58 [facility] 350.1.13.10 ity of [facility] [place].2.[place] [id number] [facility] [address] 2020-08-02 2020-08-02 Outpatient Gracia DELGADO [facility] [id number] Univers 10:30:00 10:30:00 ity [facility] 2020-08-02 2020-08-02 Orders Doctor CONNER 1.2.840.114 [id number] Univers 00:00:00 00:00:00 Only Unassigned, LESLEY 350.1.13.10 ity of [place] [facility] 4.2.7.2.686 Marvel as [id number] [facility] [address] 2020-05-31 2020-05-31 Outpatient Gracia LAMAR [facility] [id number] Univers 08:50:00 08:50:00 [facility] 2020-05-24 2020-05-24 Outpatient Gracia DELGADO [facility] [id number] Univers 00:00:00 00:00:00 ity [facility] 2020-05-22 2020-05-22 Outpatient Gracia [facility] [id number] Univers 09:50:00 09:50:00 ILIANA [facility] 2020-05-17 2020-05-21 Office Care, Ang Primary [place] 1.2.840 .114 [id number] Univers 11:05:31 09:49:52 Visit Sandy [facility] 350.1.13.10 it[place] [id number] [address] 2020-05-21 2020-05-21 Outpatient R [facility] [id number] Univers 00:00:00 00:00:00 ity of [facility] 2020-05-17 2020-05-17 Outpatient R SANDY [facility] [id number] Univers 10:30:00 10:30:00 ity of [facility] 2020-05-17 2020-05-17 Orders Doctor CONNER 1.2.840.114 [id number] Univers 00:00:00 00:00:00 Only Unassigned, LESLEY 350.1.13.10 ity of [place] [facility] 4.2.7.2.686 Marvel as [id number] [address] 2020-05-08 2020-05-08 Outpatient R [facility] [id number] Univers 08:30:00 08:30:00 ANNEMARIE magaña [facility] 2020-05-08 2020-05-08 [facility] 1.2.840.114 [id number] Univers 07:05:41 07:35:41 ne Visit Annemarie Pena SPECIALTY 350.1.13.10 it[place] AT [id number] [place] lawrencenargis BYRD 2 [facility] 2020-05-01 2020-05-01 Outpatient R [facility] [id number] Univers 09:30:00 09:30:00 ANNEMARIE magaña [facility] 2020-04-24 2020-04-24 Outpatient R [facility] [id number] Univers 09:30:00 09:30:00 ANNEMARIE magaña [facility] 2020-03-08 2020-03-20 Office Care, Ang Primary [place] 1.2.840 .114 [id number] Univers 10:02:59 09:15:53 Visit Alexandre Delgado [facility] 350.1.13.10 it[place] [id number] [address] 2020-03-16 2020-03-16 Hospital Alexandre Delgado [facility] 1.2.840.114 [id number] Univers 07:51:00 23:59:00 Encounter Hubert 350.1.13.10 ity of [place].2.[place] [id number] [facility] [address] 2020-03-16 2020-03-16 Outpatient R ALEXANDRE DELGADO [facility] [id number] Univers 00:00:00 00:00:00 ity of [facility] 2020-03-13 2020-03-13 Telephone Alexandre Delgado ROSY 1.2.840.114 [id number] Univers 00:00:00 00:00:00 [facility] 350.1.13.10 it [place] [id number] [address] 2020-03-08 2020-03-08 Outpatient R ALEXANDRE DELGADO [facility] [id number] Univers 10:00:00 10:00:00 ity of [facility] 2020-03-08 2020-03-08 Orders Doctor CONNER 1.2.840.114 [id number] Univers 00:00:00 00:00:00 Only Unassigned, LESLEY 350.1.13.10 ity of [place] [facility] 4.2.7.2.686 Marvel as [id number] [facility] [address] 2020-02-29 2020-02-29 Telephone Alexandre Delgado ROSY 1.2.840.114 [id number] Univers 00:00:00 00:00:00 [facility] 350.1.13.10 it [place] [id number] [facility] [address] 2020-02-14 2020-02-14 Telephone Fer [facility] 1.2.422.236 [id number] Univers 00:00:00 00:00:00 Dannie Gaspar 350.1.13.10 ity of [place] [phone] [facility] 059 [facility] 2020-02-10 2020-02-10 Outpatient R [facility] [id number] Univers 09:00:00 09:00:00 ity of [facility] 2020-02-10 2020-02-10 Orders Doctor CONNER 1.2.840.114 [id number] Univers 00:00:00 00:00:00 Only Unassigned, LESLEY 350.1.13.10 ity of [place] [facility] 4.2.7.2.686 Marvel as [id number] [facility] [address] 2020-01-24 2020-01-24 Outpatient R [facility] [id number] Univers 10:40:00 10:40:00 DANNIE arshad o f [facility] 2020-01-24 2020-01-24 [facility]ici [facility] 1.2.840.114 [id number] Univers 07:57:10 08:17:10 ne Visit Dannie Gaspar 350.1.13.10 ity of [place] [phone] Wa suman nal 059 [facility] 2020-01-18 2020-01-18 Outpatient R [facility] [id number] Univers 13:00:00 13:00:00 ity of [facility] 2019-11-10 2019-11-10 Telephone Alexandre Delgado 1.2.840.114 [id number] Univers 00:00:00 00:00:00 [facility] 350.1.13.10 it y [place] [id number] [facility] [address] 2019-11-03 2019-11-03 Outpatient R ALEXANDRE DELGADO [facility] [id number] Univers 08:15:00 08:15:00 ity of [facility] 2019-10-25 2019-10-25 Office [facility] 1.2.840.114 [id number] Univers 08:48:06 09:27:18 Visit Annemarie AVILES 350.1.13.10 it[place] of [facility] 4.2.7.2.[place] AT [phone] Wa dical [place]CT[place] 072 [facility] 2019-10-25 2019-10-25 Outpatient R [facility] [id number] Univers 09:00:00 09:00:00 ANNEMARIE klein gómez [facility] 2019-10-24 2019-10-24 Office Fer, [facility] 1.2.840.114 [id number] Univers 10:57:17 15:44:20 Visit Dannie Gaspar 350.1.13.10 ity of [place].2.[place] [phone] [place] [id number] [facility] 2019-10-24 2019-10-24 Outpatient R [facility] [id number] Univers 11:00:00 11:00:00 DANNIE pavithra latoya magaña [facility] 2019-09-29 2019-09-29 Office Care, Ang Primary [place] 1.2.840 .114 [id number] Univers 10:38:08 11:16:42 Visit Alexandre Delgado [facility] 350.1.13.10 ity of [place] [id number] [address] 2019-09-29 2019-09-29 Outpatient R SANDY ALEXANDRE [facility] [id number] Univers 10:00:00 11:16:42 ity of [facility] 2019-09-14 2019-09-14 Telephone Alexandre Delgado ROSY 1.2.840.114 [id number] Univers 00:00:00 00:00:00 [facility] 350.1.13.10 it [place] [id number] [address] 2019-09-08 2019-09-08 Orders Doctor PRIETO 1.2.840.114 [id number] Univers 00:00:00 00:00:00 Only Unassigned, LESELY 350.1.13.10 ity of [place] [facility] 4.2.7.2.686 Marvel as [id number] [facility] [address] 2019-05-05 2019-05-05 Telephone Alexandre Delgado ROSY 1.2.840.114 [id number] Univers 00:00:00 00:00:00 [facility] 350.1.13.10 it y of [place] [id number] [address] 2019-04-28 2019-04-28 Office Care, Ang Primary [place] 1.2.840 .114 [id number] Univers 09:26:40 11:38:19 Visit Alexandre Delgado 350.1.13.10 ity of HEALTH 4.2.7.2.686 [place] UNIT [phone] [facility] [address] 2019-04-28 2019-04-28 Orders Doctor CONNER 1.2.840.114 [id number] Univers 00:00:00 00:00:00 Only Unassigned, LESLEY 350.1.13.10 ity of [place] [facility] 4.2.7.2.686 Marvel as [id number] [facility] [address] Results Test Description Test Time Test Comments Results Result Comments Source TSH, THIRD GENERATION 2022-09-11 04:08:38 Test Item Value Reference Range Interpretation Comme nts TSH, THIRD GENERATION (test 2.060 UIU/ML 0.400-4.100 UNLESS OTHERWISE INDICATED, code = 2821) ALL TESTING PER FORMED ATCLINICAL PATH [facility] [place] [id number] BUILDING COMPONENTS DESIGNER: Tracey COBB [id number] CAP ACCREDCOUNT INCLUDES THE [place] [id number] COMPREHENSIVE METABOLIC [id number] 03:23:31 Test Item Value Reference Range Interpretation Comments GLUCOSE (test code = 80 MG/DL 70-99 2216) BUN (test code = 7 MG/DL 6-20 2207) CREATININE (test 0.55 MG/DL 0.60-1.30 L code = 2214) eGFR (2020 CKD-EPI) 127 >60 (test code = 73834) ML/MIN/1.73 CALC BUN/CREAT (test 13 RATIO -28 code = 2235) SODIUM (test code = 138 MEQ/L 684-964 7067) POTASSIUM (test code 3.9 MEQ/L 3.5-5.4 = 8) CHLORIDE (test code 104 MEQ/L 95-107 = [...] U/L 5-40 2218) CBC W/AUTO DIFF WITH [id number] 02:00:05 Test Item Value Reference Range Interpretation [...] RBCS 0.00 K/UL 0.00-0.11 (test code = 90226) CT/NG, NAAT, [id number] 20:52:50 Test Item Value Reference Range Interpretation Comments GONORRHEA, NAAT NEGATIVE NEGATIVE Note: Testi ng is (test code = 88289) performe d with Emili EDEL 6800/8800 systems using real-time polymerase cali n reaction (PCR) method. CHLAMYDIA, NAAT NEGATIVE NEGATIVE Note: Testi ng is (test code = 02651) performe d with Emili EDEL 6800/8800 systems using real-time polymerase cali n reaction (PCR) method. HEPATITIS PANEL, [id number] 05:02:20 Test Item Value Reference Range Interpretation Comments HEPATITIS A IgM (test NON-REACTIVE NON-REACTIVE code = 18100) HEPATITIS B CORE IgM NON-REACTIVE NON-REACTIVE (test code = 4644) HEPATITIS B SURF AG NON-REACTIVE NON-REACTIVE (test code = 2739) HEPATITIS C ANTIBODY NON-REACTIVE NON-REACTIVE (test code = 4675) INTERPRETATION (NOTE) Hepatitis A HEPATITIS A: (test code sero logy shows no = 2552) evidence of acu te hepatitis A. INTERPRETATION (NOTE) Hepatitis B HEPATITIS B: (test code sero logy shows no = 91481) evidence of acu te hepatitis B and no indication of exposure to hepatitis B vir us in the previous alejandra eight months. INTERPRETATION (NOTE) Hepatitis C HEPATITIS C: (test code sero logy shows no = 73372) evidence of exposure to hepatitisC viru s at this time. I t can take up to 12 months after exposure tothe hepatitis C vir us for antibodies to become detectab le in the blood in certain patient s. HIV 1/2 4TH GEN, RFLX [id number] 05:02:20 Test Item Value Reference Range Interpretation Comments HIV 1/2 4TH GEN, NON-REACTIVE NON-REACTIVE UNLESS OTH ERWISE RFLX CONF (test INDICATED, A LL TESTING code = 3514) PERFORMED [facility] NICVT PATHOLOGY [facility], [facility]. [address] [place] [id number] [place] [address] DIRECTOR: [place] AGUIRRE M.D. CLIA NUMBER [id number] CAP ACCREDITATION N O. [id number] RPR REFLEX TO T. PALLIDUM - [id number] 04:28:08 Test Item Value Reference Range Interpretation Comments RPR (test code = 18528) NON-REACTIVE NON-REACTIVE RPR TITER (test code = 3500) NOT INDIC. TITER NOT INDIC. CT/NG, TMA, [id number] 00:00:00 Test Item Value Reference Range Interpretation Comments GONORRHEA, NAAT (test code = 70421) NEGATIVE CHLAMYDIA, NAAT (test code = 30737) NEGATIVE CT/NG, TMA, [id number] 00:00:00 Test Item Value Reference Range Interpretation Comments GONORRHEA, NAAT (test code = 00620) NEGATIVE CHLAMYDIA, NAAT (test code = 79936) NEGATIVE RPR REFLEX TO T. PALLIDUM - [id number] 00:00:00 Test Item Value Reference Range Interpretation Comments RPR (test code = 36756) NON-REACTIVE RPR TITER (test code = 3500) NOT INDIC. TITER RPR REFLEX TO T. PALLIDUM - [id number] 00:00:00 Test Item Value Reference Range Interpretation Comments RPR (test code = 54168) NON-REACTIVE RPR TITER (test code = 3500) NOT INDIC. TITER ACUTE HEPATITIS [id number] 00:00:00 Test Item Value Reference Range Interpretation Comments HEPATITIS A IgM (test code = NON-REACTIVE 01886) HEPATITIS B CORE IgM (test code NON-REACTIVE = 5244) HEPATITIS B SURF AG (test code = NON-REACTIVE 9999) HEPATITIS C ANTIBODY (test code NON-REACTIVE = 4675) INTERPRETATION HEPATITIS A: (NOTE) (test code = 8332) INTERPRETATION HEPATITIS B: (NOTE) (test code = 03105) INTERPRETATION HEPATITIS C: (NOTE) (test code = 09299) ACUTE HEPATITIS [id number] 00:00:00 Test Item Value Reference Range Interpretation Comments HEPATITIS A IgM (test code = NON-REACTIVE 54045) HEPATITIS B CORE IgM (test code NON-REACTIVE = 4644) HEPATITIS B SURF AG (test code = NON-REACTIVE 5739) HEPATITIS C ANTIBODY (test code NON-REACTIVE = 4673) INTERPRETATION HEPATITIS A: (NOTE) (test code = 2552) INTERPRETATION HEPATITIS B: (NOTE) (test code = 59230) INTERPRETATION HEPATITIS C: (NOTE) (test code = 54760) HIV 1/2 4TH GEN, RFLX [id number] 00:00:00 Test Item Value Reference Range Interpretation Comments HIV 1/2 4TH GEN, RFLX CONF (test NON-REACTIVE code = 3514) HIV 1/2 4TH GEN, RFLX [id number] 00:00:00 Test Item Value Reference Range Interpretation Comments HIV 1/2 4TH GEN, RFLX CONF (test NON-REACTIVE code = 3514) VITAMIN D, 25 [id number] 03:25:23 Test Item Value Reference Range Interpretation [...] . . . . . NG/ML 20-29 OP TIMAL . . . . . . . . . . . . . . . . . NG/ML 30-100 UN LESS OTHERWISE INDIC ATED, ALL TESTING PERFORM ED ATCLINICAL PATH [facility] [place]. [address] [place] [address], [place] [address] LABORATORY DIRE CTOR: Rebeca COBB. CLIA NUMBER [id number] CAP ACCREDITATION N O. [id number] HIV 1/2 4TH GEN, RFLX [id number] 03:00:39 Test Item Value Reference Range Interpretation Comments HIV 1/2 4TH GEN, RFLX CONF (test NON-REACTIVE NON-REACTIVE code = 3514) HIV AB/AG COMBO RFLX [id number] 00:00:00 Test Item Value Reference Range Interpretation Comments HIV 1/2 4TH GEN, RFLX CONF (test NON-REACTIVE code = 3514) HIV AB/AG COMBO RFLX [id number] 00:00:00 Test Item Value Reference Range Interpretation Comments HIV 1/2 4TH GEN, RFLX CONF (test NON-REACTIVE code = 3514) VITAMIN D, 25 [id number] 00:00:00 Test Item Value Reference Range Interpretation Comments VITAMIN D, 25 OH (test code = 4958) 27 NG/ML VITAMIN D, 25 [id number] 00:00:00 Test Item Value Reference Range Interpretation Comments VITAMIN D, 25 OH (test code = 4958) 27 NG/ML HIV AB/AG COMBO RFLX [id number] 00:00:00 Test Item Value Reference Range Interpretation Comments HIV 1/2 4TH GEN, RFLX CONF (test NON-REACTIVE code = 3514) HIV AB/AG COMBO RFLX [id number] 00:00:00 Test Item Value Reference Range Interpretation Comments HIV 1/2 4TH GEN, RFLX CONF (test NON-REACTIVE code = 3514) VITAMIN D, 25 [id number] 00:00:00 Test Item Value Reference Range Interpretation Comments VITAMIN D, 25 OH (test code = 4958) 27 NG/ML VITAMIN D, 25 [id number] 00:00:00 Test Item Value Reference Range Interpretation Comments VITAMIN D, 25 OH (test code = 4958) 27 NG/ML HIV AB/AG COMBO RFLX [id number] 00:00:00 Test Item Value Reference Range Interpretation Comments HIV 1/2 4TH GEN, RFLX CONF (test NON-REACTIVE code = 3514) HIV AB/AG COMBO RFLX [id number] 00:00:00 Test Item Value Reference Range Interpretation Comments HIV 1/2 4TH GEN, RFLX CONF (test NON-REACTIVE code = 3514) VITAMIN D, 25 [id number] 00:00:00 Test Item Value Reference Range Interpretation Comments VITAMIN D, 25 OH (test code = 4958) 27 NG/ML VITAMIN D, 25 [id number] 00:00:00 Test Item Value Reference Range Interpretation Comments VITAMIN D, 25 OH (test code = 4958) 27 NG/ML TSH, THIRD [id number] 00:19:50 Test Item Value Reference Range Interpretation Comments TSH, THIRD GENERATION (test code 1.090 UIU/ML 0.400-4.100 = 2821) [id number] 00:00:00 Test Item Value Reference Range Interpretation Comments TSH, THIRD GENERATION (test code 1.090 UIU/ML = 2821) [id number] 00:00:00 Test Item Value Reference Range Interpretation Comments TSH, THIRD GENERATION (test code 1.090 UIU/ML = 2821) [id number] 00:00:00 Test Item Value Reference Range Interpretation Comments TSH, THIRD GENERATION (test code 1.090 UIU/ML = 2821) [id number] 00:00:00 Test Item Value Reference Range Interpretation Comments TSH, THIRD GENERATION (test code 1.090 UIU/ML = 2821) [id number] 00:00:00 Test Item Value Reference Range Interpretation Comments TSH, THIRD GENERATION (test code 1.090 UIU/ML = 2821) [id number] 00:00:00 Test Item Value Reference Range Interpretation Comments TSH, THIRD GENERATION (test code 1.090 UIU/ML = 2821) [id number] 00:00:00 Test Item Value Reference Range Interpretation Comments TSH, THIRD GENERATION (test code 1.090 UIU/ML = 2821) [id number] 00:00:00 Test Item Value Reference Range Interpretation Comments TSH, THIRD GENERATION (test code 1.090 UIU/ML = 2821) [id number] 00:00:00 Test Item Value Reference Range Interpretation Comments TSH, THIRD GENERATION (test code 1.090 UIU/ML = 2821) LIPID [id number] 23:59:41 Test Item Value Reference Range Interpretation [...] ANNOUNCE MENT AT [email or web address] /CalcLDL-C RISK RATIO LDL/HDL 1.79 RATIO <3.22 (test code = 2238) COMPREHENSIVE METABOLIC [id number] 23:59:41 Test Item Value Reference Range Interpretation Comments GLUCOSE (test code = 77 MG/DL 70-99 2216) BUN (test code = 8 MG/DL 6-20 2207) CREATININE (test 0.67 MG/DL 0.60-1.30 EFFECTIVE code = 2214) 08/12/2021, [facility] HAS IMPLEMENTED THE NKF-ASN RECOMME NDED KD-EPI EGF R REFIT CALCULATI ON THAT DOES NOT INCLUDE A COEFFICIENT FOR RACE. FOR MORE INFORMATION, SE E ANNOUNCEMENT [email or web address] eGFR (2020 CKD-EPI) 122 >60 (test code = 37795) ML/MIN/1.73 CALC BUN/CREAT (test 12 RATIO 6-28 code = 2235) SODIUM (test code = 141 MEQ/L 025-996 3431) POTASSIUM (test code 4.0 MEQ/L 3.5-5.4 = [...] (test code = 63 U/L 9-40 H 2218) ALT (test code = 92 U/L 5-40 H 2219) HEMOGLOBIN [id number] 03:14:31 Test Item Value Reference Range Interpretation Comments HEMOGLOBIN A1c (test code = 70095) 6.0 % 4.2-5.6 H CBC W/AUTO DIFF WITH [id number] 03:06:02 Test Item Value Reference Range Interpretation [...] RBCS 0.00 K/UL 0.00-0.11 (test code = 20244) CBC W/AUTO [id number] 00:00:00 Test Item Value Reference Range Interpretation [...] NUCLEATED RBCS (test code = 0.00 K/UL 30616) CBC W/AUTO [id number] 00:00:00 Test Item Value Reference Range Interpretation [...] NUCLEATED RBCS (test code = 0.00 K/UL 95297) CBC W/AUTO [id number] 00:00:00 Test Item Value Reference Range Interpretation [...] NUCLEATED RBCS (test code = 0.00 K/UL 76310) HEMOGLOBIN [id number] 00:00:00 Test Item Value Reference Range Interpretation Comments HEMOGLOBIN A1c (test code = 45837) 6.0 % HEMOGLOBIN [id number] 00:00:00 Test Item Value Reference Range Interpretation Comments HEMOGLOBIN A1c (test code = 67240) 6.0 % HEMOGLOBIN [id number] 00:00:00 Test Item Value Reference Range Interpretation Comments HEMOGLOBIN A1c (test code = 67578) 6.0 % LIPID [id number] 00:00:00 Test Item Value Reference Range Interpretation Comments CHOLESTEROL (test code = 2210) 124 MG/DL TRIGLYCERIDES (test code = 2232) 69 MG/DL HDL CHOLESTEROL (test code = 2220) 39 MG/DL CALC LDL CHOL (test code = 2237) 70 MG/DL RISK RATIO LDL/HDL (test code = 1.79 RATIO 2238) LIPID [id number] 00:00:00 Test Item Value Reference Range Interpretation Comments CHOLESTEROL (test code = 2210) 124 MG/DL TRIGLYCERIDES (test code = 2232) 69 MG/DL HDL CHOLESTEROL (test code = 2220) 39 MG/DL CALC LDL CHOL (test code = 2237) 70 MG/DL RISK RATIO LDL/HDL (test code = 1.79 RATIO 2238) COMPREHENSIVE METABOLIC [id number] 00:00:00 Test Item Value Reference Range Interpretation Comments GLUCOSE (test code = 2217) 77 MG/DL BUN (test code = 2208) 8 MG/DL CREATININE (test code = 2214) 0.67 MG/DL eGFR (2020 CKD-EPI) (test 122 ML/MIN/1.73 code = 85163) CALC BUN/CREAT (test code = 12 RATIO [...] code = 2219) 92 U/L COMPREHENSIVE METABOLIC [id number] 00:00:00 Test Item Value Reference Range Interpretation Comments GLUCOSE (test code = 2217) 77 MG/DL BUN (test code = 2208) 8 MG/DL CREATININE (test code = 2214) 0.67 MG/DL eGFR (2020 CKD-EPI) (test 122 ML/MIN/1.73 code = 09245) CALC BUN/CREAT (test code = 12 RATIO [...] code = 2219) 92 U/L CBC W/AUTO [id number] 00:00:00 Test Item Value Reference Range Interpretation [...] NUCLEATED RBCS (test code = 0.00 K/UL 64989) CBC W/AUTO [id number] 00:00:00 Test Item Value Reference Range Interpretation [...] NUCLEATED RBCS (test code = 0.00 K/UL 76931) CBC W/AUTO [id number] 00:00:00 Test Item Value Reference Range Interpretation [...] NUCLEATED RBCS (test code = 0.00 K/UL 94482) CBC W/AUTO [id number] 00:00:00 Test Item Value Reference Range Interpretation [...] NUCLEATED RBCS (test code = 0.00 K/UL 60538) HEMOGLOBIN [id number] 00:00:00 Test Item Value Reference Range Interpretation Comments HEMOGLOBIN A1c (test code = 11006) 6.0 % HEMOGLOBIN [id number] 00:00:00 Test Item Value Reference Range Interpretation Comments HEMOGLOBIN A1c (test code = 05186) 6.0 % HEMOGLOBIN [id number] 00:00:00 Test Item Value Reference Range Interpretation Comments HEMOGLOBIN A1c (test code = 61000) 6.0 % LIPID [id number] 00:00:00 Test Item Value Reference Range Interpretation Comments CHOLESTEROL (test code = 2210) 124 MG/DL TRIGLYCERIDES (test code = 2232) 69 MG/DL HDL CHOLESTEROL (test code = 2220) 39 MG/DL CALC LDL CHOL (test code = 2237) 70 MG/DL RISK RATIO LDL/HDL (test code = 1.79 RATIO 2238) LIPID [id number] 00:00:00 Test Item Value Reference Range Interpretation Comments CHOLESTEROL (test code = 2210) 124 MG/DL TRIGLYCERIDES (test code = 2232) 69 MG/DL HDL CHOLESTEROL (test code = 2220) 39 MG/DL CALC LDL CHOL (test code = 2237) 70 MG/DL RISK RATIO LDL/HDL (test code = 1.79 RATIO 2238) COMPREHENSIVE METABOLIC [id number] 00:00:00 Test Item Value Reference Range Interpretation Comments GLUCOSE (test code = 2217) 77 MG/DL BUN (test code = 2208) 8 MG/DL CREATININE (test code = 2214) 0.67 MG/DL eGFR (2020 CKD-EPI) (test 122 ML/MIN/1.73 code = 66549) CALC BUN/CREAT (test code = 12 RATIO [...] code = 2219) 92 U/L COMPREHENSIVE METABOLIC [id number] 00:00:00 Test Item Value Reference Range Interpretation Comments GLUCOSE (test code = 2217) 77 MG/DL BUN (test code = 2208) 8 MG/DL CREATININE (test code = 2214) 0.67 MG/DL eGFR (2020 CKD-EPI) (test 122 ML/MIN/1.73 code = 89971) CALC BUN/CREAT (test code = 12 RATIO [...] ALKALINE PHOSPHATASE (test 56 U/L code = 220) AST (test code = 2218) 63 U/L ALT (test code = 2219) 92 U/L CBC W/AUTO [id number] 00:00:00 Test Item Value Reference Range Interpretation [...] NUCLEATED RBCS (test code = 0.00 K/UL 85150) CBC W/AUTO [id number] 00:00:00 Test Item Value Reference Range Interpretation [...] NUCLEATED RBCS (test code = 0.00 K/UL 64876) HEMOGLOBIN [id number] 00:00:00 Test Item Value Reference Range Interpretation Comments HEMOGLOBIN A1c (test code = 33048) 6.0 % HEMOGLOBIN [id number] 00:00:00 Test Item Value Reference Range Interpretation Comments HEMOGLOBIN A1c (test code = 44495) 6.0 % HEMOGLOBIN [id number] 00:00:00 Test Item Value Reference Range Interpretation Comments HEMOGLOBIN A1c (test code = 63010) 6.0 % LIPID [id number] 00:00:00 Test Item Value Reference Range Interpretation Comments CHOLESTEROL (test code = 2210) 124 MG/DL TRIGLYCERIDES (test code = 2232) 69 MG/DL HDL CHOLESTEROL (test code = 2220) 39 MG/DL CALC LDL CHOL (test code = 2237) 70 MG/DL RISK RATIO LDL/HDL (test code = 1.79 RATIO 2238) LIPID [id number] 00:00:00 Test Item Value Reference Range Interpretation Comments CHOLESTEROL (test code = 2210) 124 MG/DL TRIGLYCERIDES (test code = 2232) 69 MG/DL HDL CHOLESTEROL (test code = 2220) 39 MG/DL CALC LDL CHOL (test code = 2237) 70 MG/DL RISK RATIO LDL/HDL (test code = 1.79 RATIO 2238) COMPREHENSIVE METABOLIC [id number] 00:00:00 Test Item Value Reference Range Interpretation Comments GLUCOSE (test code = 2217) 77 MG/DL BUN (test code = 2208) 8 MG/DL CREATININE (test code = 2214) 0.67 MG/DL eGFR (2020 CKD-EPI) (test 122 ML/MIN/1.73 code = 49829) CALC BUN/CREAT (test code = 12 RATIO [...] code = 2219) 92 U/L COMPREHENSIVE METABOLIC [id number] 00:00:00 Test Item Value Reference Range Interpretation Comments GLUCOSE (test code = 2217) 77 MG/DL BUN (test code = 2208) 8 MG/DL CREATININE (test code = 2214) 0.67 MG/DL eGFR (2020 CKD-EPI) (test 122 ML/MIN/1.73 code = 67630) CALC BUN/CREAT (test code = 12 RATIO [...] 2219) 92 U/L MR KNEE LEFT WO [id number] 21:23:01 Stable MRI with lateral patellar subluxation [...] reviewed this study and agree with the abovereport.[facility] 2020-03-16 13:46:56 [...] thePA view. No fracture is appreciated.IMPRESSIONLarge effusion.No fracture.[facility] HospitalHCG, [id number] 00:00:00 Test Item Value Reference Range Interpretation Comments HCG, QUANTITATIVE (test code = <5 MIU/ML 2506) HCG, [id number] 00:00:00 Test Item Value Reference Range Interpretation Comments HCG, QUANTITATIVE (test code = <5 MIU/ML 2506) HCG, [id number] 00:00:00 Test Item Value Reference Range Interpretation Comments HCG, QUANTITATIVE (test code = <5 MIU/ML 2506) HCG, [id number] 00:00:00 Test Item Value Reference Range Interpretation Comments HCG, QUANTITATIVE (test code = <5 MIU/ML 2506) HCG, [id number] 00:00:00 Test Item Value Reference Range Interpretation Comments HCG, QUANTITATIVE (test code = <5 MIU/ML 2506) HCG, [id number] 00:00:00 Test Item Value Reference Range Interpretation Comments HCG, QUANTITATIVE (test code = <5 MIU/ML 2506) HCG, [id number] 00:00:00 Test Item Value Reference Range Interpretation Comments HCG, QUANTITATIVE (test code = <5 MIU/ML 2506) HCG, [id number] 00:00:00 Test Item Value Reference Range Interpretation Comments HCG, QUANTITATIVE (test code = <5 MIU/ML 2506) HCG, [id number] 00:00:00 Test Item Value Reference Range Interpretation Comments HCG, QUANTITATIVE (test code = <5 MIU/ML 2506) HCG, [id number] 00:00:00 Test Item Value Reference Range Interpretation Comments HCG, QUANTITATIVE (test TEST NOT PERFORMED code = 2506) MIU/ML HCG, [id number] 00:00:00 Test Item Value Reference Range Interpretation Comments HCG, QUANTITATIVE (test TEST NOT PERFORMED code = 2506) MIU/ML HCG, [id number] 00:00:00 Test Item Value Reference Range Interpretation Comments HCG, QUANTITATIVE (test TEST NOT PERFORMED code = 2506) MIU/ML HCG, [id number] 00:00:00 Test Item Value Reference Range Interpretation Comments HCG, QUANTITATIVE (test TEST NOT PERFORMED code = 2506) MIU/ML HCG, [id number] 00:00:00 Test Item Value Reference Range Interpretation Comments HCG, QUANTITATIVE (test TEST NOT PERFORMED code = 2506) MIU/ML HCG, [id number] 00:00:00 Test Item Value Reference Range Interpretation Comments HCG, QUANTITATIVE (test TEST NOT PERFORMED code = 2506) MIU/ML HCG, [id number] 00:00:00 Test Item Value Reference Range Interpretation Comments HCG, QUANTITATIVE (test TEST NOT PERFORMED code = 2506) MIU/ML HCG, [id number] 00:00:00 Test Item Value Reference Range Interpretation Comments HCG, QUANTITATIVE (test TEST NOT PERFORMED code = 2506) MIU/ML HCG, [id number] 00:00:00 Test Item Value Reference Range Interpretation Comments HCG, QUANTITATIVE (test TEST NOT PERFORMED code = 2506) MIU/ML CHLAMYDIA, AMPLIFIED, [id number] 00:00:00 Test Item Value Reference Range Interpretation Comments CHLAMYDIA, TMA (test code = 60099) NEGATIVE CHLAMYDIA, AMPLIFIED, [id number] 00:00:00 Test Item Value Reference Range Interpretation Comments CHLAMYDIA, TMA (test code = 23522) NEGATIVE GC, AMPLIFIED, [id number] 00:00:00 Test Item Value Reference Range Interpretation Comments GONORRHEA, TMA (test code = 70511) NEGATIVE GC, AMPLIFIED, [id number] 00:00:00 Test Item Value Reference Range Interpretation Comments GONORRHEA, TMA (test code = 01993) NEGATIVE CHLAMYDIA, AMPLIFIED, [id number] 00:00:00 Test Item Value Reference Range Interpretation Comments CHLAMYDIA, TMA (test code = 54013) NEGATIVE CHLAMYDIA, AMPLIFIED, [id number] 00:00:00 Test Item Value Reference Range Interpretation Comments CHLAMYDIA, TMA (test code = 82610) NEGATIVE GC, AMPLIFIED, [id number] 00:00:00 Test Item Value Reference Range Interpretation Comments GONORRHEA, TMA (test code = 90435) NEGATIVE GC, AMPLIFIED, [id number] 00:00:00 Test Item Value Reference Range Interpretation Comments GONORRHEA, TMA (test code = 77334) NEGATIVE CHLAMYDIA, AMPLIFIED, [id number] 00:00:00 Test Item Value Reference Range Interpretation Comments CHLAMYDIA, TMA (test code = 00674) NEGATIVE CHLAMYDIA, AMPLIFIED, [id number] 00:00:00 Test Item Value Reference Range Interpretation Comments CHLAMYDIA, TMA (test code = 86393) NEGATIVE GC, AMPLIFIED, [id number] 00:00:00 Test Item Value Reference Range Interpretation Comments GONORRHEA, TMA (test code = 96277) NEGATIVE GC, AMPLIFIED, [id number] 00:00:00 Test Item Value Reference Range Interpretation Comments GONORRHEA, TMA (test code = 56667) NEGATIVE HIV AB/AG COMBO RFLX [id number] 00:00:00 Test Item Value Reference Range Interpretation Comments HIV 1/2 4TH GEN, RFLX CONF (test NON-REACTIVE code = 3514) HIV AB/AG COMBO RFLX [id number] 00:00:00 Test Item Value Reference Range Interpretation Comments HIV 1/2 4TH GEN, RFLX CONF (test NON-REACTIVE code = 3514) ACUTE HEPATITIS [id number] 00:00:00 Test Item Value Reference Range Interpretation Comments HEPATITIS A IgM (test code = NON-REACTIVE 62357) HEPATITIS B CORE IgM (test code NON-REACTIVE = 4644) HEPATITIS B SURF AG (test code = NON-REACTIVE 2739) HEPATITIS C ANTIBODY (test code NON-REACTIVE = 4675) INTERPRETATION HEPATITIS A: (NOTE) (test code = 2552) INTERPRETATION HEPATITIS B: (NOTE) (test code = 65850) INTERPRETATION HEPATITIS C: (NOTE) (test code = 73464) ACUTE HEPATITIS [id number] 00:00:00 Test Item Value Reference Range Interpretation Comments HEPATITIS A IgM (test code = NON-REACTIVE 98963) HEPATITIS B CORE IgM (test code NON-REACTIVE = 4644) HEPATITIS B SURF AG (test code = NON-REACTIVE 2739) HEPATITIS C ANTIBODY (test code NON-REACTIVE = 4675) INTERPRETATION HEPATITIS A: (NOTE) (test code = 2552) INTERPRETATION HEPATITIS B: (NOTE) (test code = 90894) INTERPRETATION HEPATITIS C: (NOTE) (test code = 07738) [id number] 00:00:00 Test Item Value Reference Range Interpretation Comments RPR RESULT (test code = NON-REACTIVE 3501) RPR TITER (test code = 3500) NOT INDIC. TITER [id number] 00:00:00 Test Item Value Reference Range Interpretation Comments RPR RESULT (test code = NON-REACTIVE 3501) RPR TITER (test code = 3500) NOT INDIC. TITER [id number] 00:00:00 Test Item Value Reference Range Interpretation Comments RPR RESULT (test code = NON-REACTIVE 3501) RPR TITER (test code = 3500) NOT INDIC. TITER HIV AB/AG COMBO RFLX [id number] 00:00:00 Test Item Value Reference Range Interpretation Comments HIV 1/2 4TH GEN, RFLX CONF (test NON-REACTIVE code = 3514) HIV AB/AG COMBO RFLX [id number] 00:00:00 Test Item Value Reference Range Interpretation Comments HIV 1/2 4TH GEN, RFLX CONF (test NON-REACTIVE code = 3514) HIV AB/AG COMBO RFLX [id number] 00:00:00 Test Item Value Reference Range Interpretation Comments HIV 1/2 4TH GEN, RFLX CONF (test NON-REACTIVE code = 3514) ACUTE HEPATITIS [id number] 00:00:00 Test Item Value Reference Range Interpretation Comments HEPATITIS A IgM (test code = NON-REACTIVE 93197) HEPATITIS B CORE IgM (test code NON-REACTIVE = 4644) HEPATITIS B SURF AG (test code = NON-REACTIVE 2739) HEPATITIS C ANTIBODY (test code NON-REACTIVE = 4675) INTERPRETATION HEPATITIS A: (NOTE) (test code = 2552) INTERPRETATION HEPATITIS B: (NOTE) (test code = 86047) INTERPRETATION HEPATITIS C: (NOTE) (test code = 22688) ACUTE HEPATITIS [id number] 00:00:00 Test Item Value Reference Range Interpretation Comments HEPATITIS A IgM (test code = NON-REACTIVE 95581) HEPATITIS B CORE IgM (test code NON-REACTIVE = 4644) HEPATITIS B SURF AG (test code = NON-REACTIVE 2739) HEPATITIS C ANTIBODY (test code NON-REACTIVE = 4675) INTERPRETATION HEPATITIS A: (NOTE) (test code = 2552) INTERPRETATION HEPATITIS B: (NOTE) (test code = 97827) INTERPRETATION HEPATITIS C: (NOTE) (test code = 80654) [id number] 00:00:00 Test Item Value Reference Range Interpretation Comments RPR RESULT (test code = NON-REACTIVE 3501) RPR TITER (test code = 3500) NOT INDIC. TITER [id number] 00:00:00 Test Item Value Reference Range Interpretation Comments RPR RESULT (test code = NON-REACTIVE 3501) RPR TITER (test code = 3500) NOT INDIC. TITER [id number] 00:00:00 Test Item Value Reference Range Interpretation Comments RPR RESULT (test code = NON-REACTIVE 3501) RPR TITER (test code = 3500) NOT INDIC. TITER HIV AB/AG COMBO RFLX [id number] 00:00:00 Test Item Value Reference Range Interpretation Comments HIV 1/2 4TH GEN, RFLX CONF (test NON-REACTIVE code = 3514) ACUTE HEPATITIS [id number] 00:00:00 Test Item Value Reference Range Interpretation Comments HEPATITIS A IgM (test code = NON-REACTIVE 14726) HEPATITIS B CORE IgM (test code NON-REACTIVE = 4644) HEPATITIS B SURF AG (test code = NON-REACTIVE 2739) HEPATITIS C ANTIBODY (test code NON-REACTIVE = 4675) INTERPRETATION HEPATITIS A: (NOTE) (test code = 2552) INTERPRETATION HEPATITIS B: (NOTE) (test code = 25526) INTERPRETATION HEPATITIS C: (NOTE) (test code = 05774) ACUTE HEPATITIS [id number] 00:00:00 Test Item Value Reference Range Interpretation Comments HEPATITIS A IgM (test code = NON-REACTIVE 67410) HEPATITIS B CORE IgM (test code NON-REACTIVE = 4644) HEPATITIS B SURF AG (test code = NON-REACTIVE 2739) HEPATITIS C ANTIBODY (test code NON-REACTIVE = 4675) INTERPRETATION HEPATITIS A: (NOTE) (test code = 2552) INTERPRETATION HEPATITIS B: (NOTE) (test code = 18539) INTERPRETATION HEPATITIS C: (NOTE) (test code = 18716) [id number] 00:00:00 Test Item Value Reference Range Interpretation Comments RPR RESULT (test code = NON-REACTIVE 3501) RPR TITER (test code = 3500) NOT INDIC. TITER [id number] 00:00:00 Test Item Value Reference Range Interpretation Comments RPR RESULT (test code = NON-REACTIVE 3501) RPR TITER (test code = 3500) NOT INDIC. TITER [id number] 00:00:00 Test Item Value Reference Range Interpretation Comments RPR RESULT (test code = NON-REACTIVE 3501) RPR TITER (test code = 3500) NOT INDIC. TITER HIV AB/AG COMBO RFLX [id number] 00:00:00 Test Item Value Reference Range Interpretation Comments HIV 1/2 4TH GEN, RFLX CONF (test NON-REACTIVE code = 3514) HIV AB/AG COMBO RFLX [id number] 00:00:00 Test Item Value Reference Range Interpretation Comments HIV 1/2 4TH GEN, RFLX CONF (test NON-REACTIVE code = 3514) ACUTE HEPATITIS [id number] 00:00:00 Test Item Value Reference Range Interpretation Comments HEPATITIS A IgM (test code = NON-REACTIVE 84665) HEPATITIS B CORE IgM (test code NON-REACTIVE = 4644) HEPATITIS B SURF AG (test code = NON-REACTIVE 2739) HEPATITIS C ANTIBODY (test code NON-REACTIVE = 4675) HCV INDEX (test code = 55882) 0.13 INTERPRETATION HEPATITIS A: (NOTE) (test code = 2552) INTERPRETATION HEPATITIS B: (NOTE) (test code = 47373) INTERPRETATION HEPATITIS C: (NOTE) (test code = 89620) ACUTE HEPATITIS [id number] 00:00:00 Test Item Value Reference Range Interpretation Comments HEPATITIS A IgM (test code = NON-REACTIVE 89457) HEPATITIS B CORE IgM (test code NON-REACTIVE = 4644) HEPATITIS B SURF AG (test code = NON-REACTIVE 2739) HEPATITIS C ANTIBODY (test code NON-REACTIVE = 4675) HCV INDEX (test code = 75488) 0.13 INTERPRETATION HEPATITIS A: (NOTE) (test code = 2552) INTERPRETATION HEPATITIS B: (NOTE) (test code = 90742) INTERPRETATION HEPATITIS C: (NOTE) (test code = 65676) GC AND CHLAMYDIA, AMPLIFIED, [id number] 00:00:00 Test Item Value Reference Range Interpretation Comments GONORRHEA, TMA (test code = 69853) NEGATIVE CHLAMYDIA, TMA (test code = 05090) NEGATIVE GC AND CHLAMYDIA, AMPLIFIED, [id number] 00:00:00 Test Item Value Reference Range Interpretation Comments GONORRHEA, TMA (test code = 81736) NEGATIVE CHLAMYDIA, TMA (test code = 70701) NEGATIVE [id number] 00:00:00 Test Item Value Reference Range Interpretation Comments RPR RESULT (test code = NON-REACTIVE 3501) RPR TITER (test code = 3500) NOT INDIC. TITER [id number] 00:00:00 Test Item Value Reference Range Interpretation Comments RPR RESULT (test code = NON-REACTIVE 3501) RPR TITER (test code = 3500) NOT INDIC. TITER [id number] 00:00:00 Test Item Value Reference Range Interpretation Comments RPR RESULT (test code = NON-REACTIVE 3501) RPR TITER (test code = 3500) NOT INDIC. TITER HIV AB/AG COMBO RFLX [id number] 00:00:00 Test Item Value Reference Range Interpretation Comments HIV 1/2 4TH GEN, RFLX CONF (test NON-REACTIVE code = 3514) HIV AB/AG COMBO RFLX [id number] 00:00:00 Test Item Value Reference Range Interpretation Comments HIV 1/2 4TH GEN, RFLX CONF (test NON-REACTIVE code = 3514) HIV AB/AG COMBO RFLX [id number] 00:00:00 Test Item Value Reference Range Interpretation Comments HIV 1/2 4TH GEN, RFLX CONF (test NON-REACTIVE code = 3514) ACUTE HEPATITIS [id number] 00:00:00 Test Item Value Reference Range Interpretation Comments HEPATITIS A IgM (test code = NON-REACTIVE 90527) HEPATITIS B CORE IgM (test code NON-REACTIVE = 4644) HEPATITIS B SURF AG (test code = NON-REACTIVE 2739) HEPATITIS C ANTIBODY (test code NON-REACTIVE = 4675) HCV INDEX (test code = 21393) 0.13 INTERPRETATION HEPATITIS A: (NOTE) (test code = 2552) INTERPRETATION HEPATITIS B: (NOTE) (test code = 05700) INTERPRETATION HEPATITIS C: (NOTE) (test code = 18707) ACUTE HEPATITIS [id number] 00:00:00 Test Item Value Reference Range Interpretation Comments HEPATITIS A IgM (test code = NON-REACTIVE 78226) HEPATITIS B CORE IgM (test code NON-REACTIVE = 4644) HEPATITIS B SURF AG (test code = NON-REACTIVE 2739) HEPATITIS C ANTIBODY (test code NON-REACTIVE = 4675) HCV INDEX (test code = 45385) 0.13 INTERPRETATION HEPATITIS A: (NOTE) (test code = 2552) INTERPRETATION HEPATITIS B: (NOTE) (test code = 97565) INTERPRETATION HEPATITIS C: (NOTE) (test code = 45938) HIV AB/AG COMBO RFLX [id number] 00:00:00 Test Item Value Reference Range Interpretation Comments HIV 1/2 4TH GEN, RFLX CONF (test NON-REACTIVE code = 3514) GC AND CHLAMYDIA, AMPLIFIED, [id number] 00:00:00 Test Item Value Reference Range Interpretation Comments GONORRHEA, TMA (test code = 78787) NEGATIVE CHLAMYDIA, TMA (test code = 12456) NEGATIVE GC AND CHLAMYDIA, AMPLIFIED, [id number] 00:00:00 Test Item Value Reference Range Interpretation Comments GONORRHEA, TMA (test code = 94151) NEGATIVE CHLAMYDIA, TMA (test code = 85477) NEGATIVE [id number] 00:00:00 Test Item Value Reference Range Interpretation Comments RPR RESULT (test code = NON-REACTIVE 3501) RPR TITER (test code = 3500) NOT INDIC. TITER [id number] 00:00:00 Test Item Value Reference Range Interpretation Comments RPR RESULT (test code = NON-REACTIVE 3501) RPR TITER (test code = 3500) NOT INDIC. TITER [id number] 00:00:00 Test Item Value Reference Range Interpretation Comments RPR RESULT (test code = NON-REACTIVE 3501) RPR TITER (test code = 3500) NOT INDIC. TITER ACUTE HEPATITIS [id number] 00:00:00 Test Item Value Reference Range Interpretation Comments HEPATITIS A IgM (test code = NON-REACTIVE 86320) HEPATITIS B CORE IgM (test code NON-REACTIVE = 4644) HEPATITIS B SURF AG (test code = NON-REACTIVE 2739) HEPATITIS C ANTIBODY (test code NON-REACTIVE = 4675) HCV INDEX (test code = 12072) 0.13 INTERPRETATION HEPATITIS A: (NOTE) (test code = 2552) INTERPRETATION HEPATITIS B: (NOTE) (test code = 44719) INTERPRETATION HEPATITIS C: (NOTE) (test code = 53746) ACUTE HEPATITIS [id number] 00:00:00 Test Item Value Reference Range Interpretation Comments HEPATITIS A IgM (test code = NON-REACTIVE 62806) HEPATITIS B CORE IgM (test code NON-REACTIVE = 4644) HEPATITIS B SURF AG (test code = NON-REACTIVE 2739) HEPATITIS C ANTIBODY (test code NON-REACTIVE = 4675) HCV INDEX (test code = 78516) 0.13 INTERPRETATION HEPATITIS A: (NOTE) (test code = 2552) INTERPRETATION HEPATITIS B: (NOTE) (test code = 82018) INTERPRETATION HEPATITIS C: (NOTE) (test code = 79274) GC AND CHLAMYDIA, AMPLIFIED, [id number] 00:00:00 Test Item Value Reference Range Interpretation Comments GONORRHEA, TMA (test code = 15280) NEGATIVE CHLAMYDIA, TMA (test code = 18444) NEGATIVE GC AND CHLAMYDIA, AMPLIFIED, [id number] 00:00:00 Test Item Value Reference Range Interpretation Comments GONORRHEA, TMA (test code = 70959) NEGATIVE CHLAMYDIA, TMA (test code = 92917) NEGATIVE [id number] 00:00:00 Test Item Value Reference Range Interpretation Comments RPR RESULT (test code = NON-REACTIVE 3501) RPR TITER (test code = 3500) NOT INDIC. TITER [id number] 00:00:00 Test Item Value Reference Range Interpretation Comments RPR RESULT (test code = NON-REACTIVE 3501) RPR TITER (test code = 3500) NOT INDIC. TITER [id number] 00:00:00 Test Item Value Reference Range Interpretation Comments RPR RESULT (test code = NON-REACTIVE 3501) RPR TITER (test code = 3500) NOT INDIC. TITER [id number] 00:00:00 Test Item Value Reference Range Interpretation Comments RPR RESULT (test code = NON-REACTIVE 3501) RPR TITER (test code = 3500) NOT INDIC. TITER [id number] 00:00:00 Test Item Value Reference Range Interpretation Comments RPR RESULT (test code = NON-REACTIVE 3501) RPR TITER (test code = 3500) NOT INDIC. TITER [id number] 00:00:00 Test Item Value Reference Range Interpretation Comments RPR RESULT (test code = NON-REACTIVE 3501) RPR TITER (test code = 3500) NOT INDIC. TITER HIV AB/AG COMBO RFLX [id number] 00:00:00 Test Item Value Reference Range Interpretation Comments HIV 1/2 4TH GEN, RFLX CONF (test NON-REACTIVE code = 3514) HIV AB/AG COMBO RFLX [id number] 00:00:00 Test Item Value Reference Range Interpretation Comments HIV 1/2 4TH GEN, RFLX CONF (test NON-REACTIVE code = 3514) [id number] 00:00:00 Test Item Value Reference Range Interpretation Comments RPR RESULT (test code = NON-REACTIVE 3501) RPR TITER (test code = 3500) NOT INDIC. TITER [id number] 00:00:00 Test Item Value Reference Range Interpretation Comments RPR RESULT (test code = NON-REACTIVE 3501) RPR TITER (test code = 3500) NOT INDIC. TITER [id number] 00:00:00 Test Item Value Reference Range Interpretation Comments RPR RESULT (test code = NON-REACTIVE 3501) RPR TITER (test code = 3500) NOT INDIC. TITER [id number] 00:00:00 Test Item Value Reference Range Interpretation Comments RPR RESULT (test code = NON-REACTIVE 3501) RPR TITER (test code = 3500) NOT INDIC. TITER HIV AB/AG COMBO RFLX [id number] 00:00:00 Test Item Value Reference Range Interpretation Comments HIV 1/2 4TH GEN, RFLX CONF (test NON-REACTIVE code = 3514) HIV AB/AG COMBO RFLX [id number] 00:00:00 Test Item Value Reference Range Interpretation Comments HIV 1/2 4TH GEN, RFLX CONF (test NON-REACTIVE code = 3514) [id number] 00:00:00 Test Item Value Reference Range Interpretation Comments RPR RESULT (test code = NON-REACTIVE 3501) RPR TITER (test code = 3500) NOT INDIC. TITER [id number] 00:00:00 Test Item Value Reference Range Interpretation Comments RPR RESULT (test code = NON-REACTIVE 3501) RPR TITER (test code = 3500) NOT INDIC. TITER HIV AB/AG COMBO RFLX [id number] 00:00:00 Test Item Value Reference Range Interpretation Comments HIV 1/2 4TH GEN, RFLX CONF (test NON-REACTIVE code = 3514) HIV AB/AG COMBO RFLX [id number] 00:00:00 Test Item Value Reference Range Interpretation Comments HIV 1/2 4TH GEN, RFLX CONF (test NON-REACTIVE code = 3514) GC AND CHLAMYDIA, AMPLIFIED, [id number] 00:00:00 Test Item Value Reference Range Interpretation Comments GONORRHEA, TMA (test code = 83029) NEGATIVE CHLAMYDIA, TMA (test code = 02804) NEGATIVE GC AND CHLAMYDIA, AMPLIFIED, [id number] 00:00:00 Test Item Value Reference Range Interpretation Comments GONORRHEA, TMA (test code = 12156) NEGATIVE CHLAMYDIA, TMA (test code = 76801) NEGATIVE GC AND CHLAMYDIA, AMPLIFIED, [id number] 00:00:00 Test Item Value Reference Range Interpretation Comments GONORRHEA, TMA (test code = 59261) NEGATIVE CHLAMYDIA, TMA (test code = 36950) NEGATIVE GC AND CHLAMYDIA, AMPLIFIED, [id number] 00:00:00 Test Item Value Reference Range Interpretation Comments GONORRHEA, TMA (test code = 64823) NEGATIVE CHLAMYDIA, TMA (test code = 74469) NEGATIVE GC AND CHLAMYDIA, AMPLIFIED, [id number] 00:00:00 Test Item Value Reference Range Interpretation Comments GONORRHEA, TMA (test code = 31373) NEGATIVE CHLAMYDIA, TMA (test code = 19118) NEGATIVE GC AND CHLAMYDIA, AMPLIFIED, [id number] 00:00:00 Test Item Value Reference Range Interpretation Comments GONORRHEA, TMA (test code = 20167) NEGATIVE CHLAMYDIA, TMA (test code = 80413) NEGATIVE COMPREHENSIVE METABOLIC [id number] 00:00:00 Test Item Value Reference Range Interpretation Comments GLUCOSE (test code = 2217) 127 MG/DL BUN (test code = 2208) 5 MG/DL CREATININE (test code = 2214) 0.58 MG/DL eGFR AMER. (test code 148 ML/MIN/1.73 = 50809) eGFR NON- AMER. (test 128 ML/MIN/1.73 code = 92317) CALC BUN/CREAT (test code = 9 RATIO [...] code = 2219) 18 U/L COMPREHENSIVE METABOLIC [id number] 00:00:00 Test Item Value Reference Range Interpretation Comments GLUCOSE (test code = 2217) 127 MG/DL BUN (test code = 2208) 5 MG/DL CREATININE (test code = 2214) 0.58 MG/DL eGFR AMER. (test code 148 ML/MIN/1.73 = 52968) eGFR NON- AMER. (test 128 ML/MIN/1.73 code = 92757) CALC BUN/CREAT (test code = 9 RATIO [...] (test code = 2219) 18 U/L LIPID [id number] 00:00:00 Test Item Value Reference Range Interpretation Comments CHOLESTEROL (test code = 2210) 186 MG/DL TRIGLYCERIDES (test code = 2232) 106 MG/DL HDL CHOLESTEROL (test code = 2220) 54 MG/DL CALC LDL CHOL (test code = 2237) 111 MG/DL RISK RATIO LDL/HDL (test code = 2.05 RATIO 2238) LIPID [id number] 00:00:00 Test Item Value Reference Range Interpretation Comments CHOLESTEROL (test code = 2210) 186 MG/DL TRIGLYCERIDES (test code = 2232) 106 MG/DL HDL CHOLESTEROL (test code = 2220) 54 MG/DL CALC LDL CHOL (test code = 2237) 111 MG/DL RISK RATIO LDL/HDL (test code = 2.05 RATIO 2238) COMPREHENSIVE METABOLIC [id number] 00:00:00 Test Item Value Reference Range Interpretation Comments GLUCOSE (test code = 2217) 127 MG/DL BUN (test code = 2208) 5 MG/DL CREATININE (test code = 2214) 0.58 MG/DL eGFR AMER. (test code 148 ML/MIN/1.73 = 50472) eGFR NON- AMER. (test 128 ML/MIN/1.73 code = 07677) CALC BUN/CREAT (test code = 9 RATIO [...] code = 2219) 18 U/L COMPREHENSIVE METABOLIC [id number] 00:00:00 Test Item Value Reference Range Interpretation Comments GLUCOSE (test code = 2217) 127 MG/DL BUN (test code = 2208) 5 MG/DL CREATININE (test code = 2214) 0.58 MG/DL eGFR AMER. (test code 148 ML/MIN/1.73 = 43153) eGFR NON- AMER. (test 128 ML/MIN/1.73 code = 03667) CALC BUN/CREAT (test code = 9 RATIO [...] code = 2219) 18 U/L COMPREHENSIVE METABOLIC [id number] 00:00:00 Test Item Value Reference Range Interpretation Comments GLUCOSE (test code = 2217) 127 MG/DL BUN (test code = 2208) 5 MG/DL CREATININE (test code = 2214) 0.58 MG/DL eGFR AMER. (test code 148 ML/MIN/1.73 = 05331) eGFR NON- AMER. (test 128 ML/MIN/1.73 code = 58010) CALC BUN/CREAT (test code = 9 RATIO [...] (test code = 2219) 18 U/L LIPID [id number] 00:00:00 Test Item Value Reference Range Interpretation Comments CHOLESTEROL (test code = 2210) 186 MG/DL TRIGLYCERIDES (test code = 2232) 106 MG/DL HDL CHOLESTEROL (test code = 2220) 54 MG/DL CALC LDL CHOL (test code = 2237) 111 MG/DL RISK RATIO LDL/HDL (test code = 2.05 RATIO 2238) LIPID [id number] 00:00:00 Test Item Value Reference Range Interpretation Comments CHOLESTEROL (test code = 2210) 186 MG/DL TRIGLYCERIDES (test code = 2232) 106 MG/DL HDL CHOLESTEROL (test code = 2220) 54 MG/DL CALC LDL CHOL (test code = 2237) 111 MG/DL RISK RATIO LDL/HDL (test code = 2.05 RATIO 2238) COMPREHENSIVE METABOLIC [id number] 00:00:00 Test Item Value Reference Range Interpretation Comments GLUCOSE (test code = 2217) 127 MG/DL BUN (test code = 2208) 5 MG/DL CREATININE (test code = 2214) 0.58 MG/DL eGFR AMER. (test code 148 ML/MIN/1.73 = 86736) eGFR NON- AMER. (test 128 ML/MIN/1.73 code = 16989) CALC BUN/CREAT (test code = 9 RATIO [...] (test code = 2219) 18 U/L LIPID [id number] 00:00:00 Test Item Value Reference Range Interpretation Comments CHOLESTEROL (test code = 2210) 186 MG/DL TRIGLYCERIDES (test code = 2232) 106 MG/DL HDL CHOLESTEROL (test code = 2220) 54 MG/DL CALC LDL CHOL (test code = 2237) 111 MG/DL RISK RATIO LDL/HDL (test code = 2.05 RATIO 2238) LIPID [id number] 00:00:00 Test Item Value Reference Range Interpretation Comments CHOLESTEROL (test code = 2210) 186 MG/DL TRIGLYCERIDES (test code = 2232) 106 MG/DL HDL CHOLESTEROL (test code = 2220) 54 MG/DL CALC LDL CHOL (test code = 2237) 111 MG/DL RISK RATIO LDL/HDL (test code = 2.05 RATIO 2238) GC AND CHLAMYDIA, AMPLIFIED, [id number] 00:00:00 Test Item Value Reference Range Interpretation Comments GONORRHEA, TMA (test code = 19444) NEGATIVE CHLAMYDIA, TMA (test code = 38784) NEGATIVE GC AND CHLAMYDIA, AMPLIFIED, [id number] 00:00:00 Test Item Value Reference Range Interpretation Comments GONORRHEA, TMA (test code = 00989) NEGATIVE CHLAMYDIA, TMA (test code = 38239) NEGATIVE GC AND CHLAMYDIA, AMPLIFIED, [id number] 00:00:00 Test Item Value Reference Range Interpretation Comments GONORRHEA, TMA (test code = 80687) NEGATIVE CHLAMYDIA, TMA (test code = 11266) NEGATIVE GC AND CHLAMYDIA, AMPLIFIED, [id number] 00:00:00 Test Item Value Reference Range Interpretation Comments GONORRHEA, TMA (test code = 88482) NEGATIVE CHLAMYDIA, TMA (test code = 01367) NEGATIVE GC AND CHLAMYDIA, AMPLIFIED, [id number] 00:00:00 Test Item Value Reference Range Interpretation Comments GONORRHEA, TMA (test code = 97910) NEGATIVE CHLAMYDIA, TMA (test code = 82139) NEGATIVE GC AND CHLAMYDIA, AMPLIFIED, [id number] 00:00:00 Test Item Value Reference Range Interpretation Comments GONORRHEA, TMA (test code = 89603) NEGATIVE CHLAMYDIA, TMA (test code = 92807) NEGATIVE VAGINAL PATHOGENS DNA [id number] 00:00:00 Test Item Value Reference Range Interpretation Comments YOKO SPECIES (test code = 91098) POSITIVE G. VAGINALIS (test code = 43431) NEGATIVE T. VAGINALIS (test code = 94350) NEGATIVE VAGINAL PATHOGENS DNA [id number] 00:00:00 Test Item Value Reference Range Interpretation Comments YOKO SPECIES (test code = 38174) POSITIVE G. VAGINALIS (test code = 55455) NEGATIVE T. VAGINALIS (test code = 50218) NEGATIVE VAGINAL PATHOGENS DNA [id number] 00:00:00 Test Item Value Reference Range Interpretation Comments YOKO SPECIES (test code = 45824) POSITIVE G. VAGINALIS (test code = 75367) NEGATIVE T. VAGINALIS (test code = 29596) NEGATIVE VAGINAL PATHOGENS DNA [id number] 00:00:00 Test Item Value Reference Range Interpretation Comments YOKO SPECIES (test code = 32116) POSITIVE G. VAGINALIS (test code = 23540) NEGATIVE T. VAGINALIS (test code = 58983) NEGATIVE VAGINAL PATHOGENS DNA [id number] 00:00:00 Test Item Value Reference Range Interpretation Comments YOKO SPECIES (test code = 52237) POSITIVE G. VAGINALIS (test code = 55354) NEGATIVE T. VAGINALIS (test code = 06802) NEGATIVE VAGINAL PATHOGENS DNA [id number] 00:00:00 Test Item Value Reference Range Interpretation Comments YOKO SPECIES (test code = 54758) POSITIVE G. VAGINALIS (test code = 47111) NEGATIVE T. VAGINALIS (test code = 20534) NEGATIVE GC AND CHLAMYDIA, AMPLIFIED, [id number] 00:00:00 Test Item Value Reference Range Interpretation Comments GONORRHEA, TMA (test code = 75555) NEGATIVE CHLAMYDIA, TMA (test code = 24540) NEGATIVE GC AND CHLAMYDIA, AMPLIFIED, [id number] 00:00:00 Test Item Value Reference Range Interpretation Comments GONORRHEA, TMA (test code = 29561) NEGATIVE CHLAMYDIA, TMA (test code = 12654) NEGATIVE GC AND CHLAMYDIA, AMPLIFIED, [id number] 00:00:00 Test Item Value Reference Range Interpretation Comments GONORRHEA, TMA (test code = 49210) NEGATIVE CHLAMYDIA, TMA (test code = 94990) NEGATIVE GC AND CHLAMYDIA, AMPLIFIED, [id number] 00:00:00 Test Item Value Reference Range Interpretation Comments GONORRHEA, TMA (test code = 28166) NEGATIVE CHLAMYDIA, TMA (test code = 73306) NEGATIVE GC AND CHLAMYDIA, AMPLIFIED, [id number] 00:00:00 Test Item Value Reference Range Interpretation Comments GONORRHEA, TMA (test code = 96066) NEGATIVE CHLAMYDIA, TMA (test code = 01327) NEGATIVE GC AND CHLAMYDIA, AMPLIFIED, [id number] 00:00:00 Test Item Value Reference Range Interpretation Comments GONORRHEA, TMA (test code = 92577) NEGATIVE CHLAMYDIA, TMA (test code = 00795) NEGATIVE CULTURE, [id number] 00:00:00 Test Item Value Reference Range Interpretation Comments CULTURE, URINE (test SPECIMEN NUMBER: code = 73782) [id number] CULTURE, [id number] 00:00:00 Test Item Value Reference Range Interpretation Comments CULTURE, URINE (test SPECIMEN NUMBER: code = 13672) [id number] CULTURE, [id number] 00:00:00 Test Item Value Reference Range Interpretation Comments CULTURE, URINE (test SPECIMEN NUMBER: code = 66669) [id number] CULTURE, [id number] 00:00:00 Test Item Value Reference Range Interpretation Comments CULTURE, URINE (test SPECIMEN NUMBER: code = 16821) [id number] CULTURE, [id number] 00:00:00 Test Item Value Reference Range Interpretation Comments CULTURE, URINE (test SPECIMEN NUMBER: code = 42617) [id number] CULTURE, [id number] 00:00:00 Test Item Value Reference Range Interpretation Comments CULTURE, URINE (test SPECIMEN NUMBER: code = 86329) [id number] HEMOGLOBIN [id number] 00:00:00 Test Item Value Reference Range Interpretation Comments HEMOGLOBIN A1c (test code = 20855) 5.5 % HEMOGLOBIN [id number] 00:00:00 Test Item Value Reference Range Interpretation Comments HEMOGLOBIN A1c (test code = 01563) 5.5 % HEMOGLOBIN [id number] 00:00:00 Test Item Value Reference Range Interpretation Comments HEMOGLOBIN A1c (test code = 40468) 5.5 % CBC W/AUTO [id number] 00:00:00 Test Item Value Reference Range Interpretation [...] code = 1015) 310 K/UL CBC W/AUTO [id number] 00:00:00 Test Item Value Reference Range Interpretation [...] code = 1015) 310 K/UL CBC W/AUTO [id number] 00:00:00 Test Item Value Reference Range Interpretation [...] code = 1015) 310 K/UL COMPREHENSIVE METABOLIC [id number] 00:00:00 Test Item Value Reference Range Interpretation Comments GLUCOSE (test code = 2217) 73 MG/DL BUN (test code = 2208) 10 MG/DL CREATININE (test code = 2214) 0.51 MG/DL eGFR AMER. (test code 158 ML/MIN/1.73 = 72894) eGFR NON- AMER. (test 136 ML/MIN/1.73 code = 96595) CALCULATED BUN/CREAT (test 20 RATIO code = [...] code = 2219) 23 U/L COMPREHENSIVE METABOLIC [id number] 00:00:00 Test Item Value Reference Range Interpretation Comments GLUCOSE (test code = 2217) 73 MG/DL BUN (test code = 2208) 10 MG/DL CREATININE (test code = 2214) 0.51 MG/DL eGFR AMER. (test code 158 ML/MIN/1.73 = 35295) eGFR NON- AMER. (test 136 ML/MIN/1.73 code = 61175) CALCULATED BUN/CREAT (test 20 RATIO code = [...] 21 U/L SGPT (ALT) (test code = 221) 23 U/L LIPID [id number] 00:00:00 Test Item Value Reference Range Interpretation Comments CHOLESTEROL (test code = 2210) 167 MG/DL TRIGLYCERIDES (test code = 2232) 109 MG/DL HDL CHOLESTEROL (test code = 2220) 58 MG/DL CALCULATED LDL CHOL (test code = 87 MG/DL 7) RISK RATIO LDL/HDL (test code = 1.50 RATIO 2238) LIPID [id number] 00:00:00 Test Item Value Reference Range Interpretation [...] (test code = 2821) 1.5 UIU/ML HEMOGLOBIN [id number] 00:00:00 Test Item Value Reference Range Interpretation Comments HEMOGLOBIN A1c (test code = 23315) 5.5 % HEMOGLOBIN [id number] 00:00:00 Test Item Value Reference Range Interpretation Comments HEMOGLOBIN A1c (test code = 75273) 5.5 % HEMOGLOBIN [id number] 00:00:00 Test Item Value Reference Range Interpretation Comments HEMOGLOBIN A1c (test code = 91449) 5.5 % HEMOGLOBIN [id number] 00:00:00 Test Item Value Reference Range Interpretation Comments HEMOGLOBIN A1c (test code = 11487) 5.5 % HEMOGLOBIN [id number] 00:00:00 Test Item Value Reference Range Interpretation Comments HEMOGLOBIN A1c (test code = 32537) 5.5 % CBC W/AUTO [id number] 00:00:00 Test Item Value Reference Range Interpretation [...] code = 1015) 310 K/UL CBC W/AUTO [id number] 00:00:00 Test Item Value Reference Range Interpretation [...] code = 1015) 310 K/UL CBC W/AUTO [id number] 00:00:00 Test Item Value Reference Range Interpretation [...] code = 1015) 310 K/UL COMPREHENSIVE METABOLIC [id number] 00:00:00 Test Item Value Reference Range Interpretation Comments GLUCOSE (test code = 2217) 73 MG/DL BUN (test code = 2208) 10 MG/DL CREATININE (test code = 2214) 0.51 MG/DL eGFR AMER. (test code 158 ML/MIN/1.73 = 35751) eGFR NON- AMER. (test 136 ML/MIN/1.73 code = 88273) CALCULATED BUN/CREAT (test 20 RATIO code = [...] code = 2219) 23 U/L COMPREHENSIVE METABOLIC [id number] 00:00:00 Test Item Value Reference Range Interpretation Comments GLUCOSE (test code = 2217) 73 MG/DL BUN (test code = 2208) 10 MG/DL CREATININE (test code = 2214) 0.51 MG/DL eGFR AMER. (test code 158 ML/MIN/1.73 = 44404) eGFR NON- AMER. (test 136 ML/MIN/1.73 code = 13778) CALCULATED BUN/CREAT (test 20 RATIO code = [...] (test code = 2219) 23 U/L LIPID [id number] 00:00:00 Test Item Value Reference Range Interpretation Comments CHOLESTEROL (test code = 2210) 167 MG/DL TRIGLYCERIDES (test code = 2232) 109 MG/DL HDL CHOLESTEROL (test code = 2220) 58 MG/DL CALCULATED LDL CHOL (test code = 87 MG/DL 2236) RISK RATIO LDL/HDL (test code = 1.50 RATIO 2238) LIPID [id number] 00:00:00 Test Item Value Reference Range Interpretation [...] (test code = 2821) 1.5 UIU/ML HEMOGLOBIN [id number] 00:00:00 Test Item Value Reference Range Interpretation Comments HEMOGLOBIN A1c (test code = 61322) 5.5 % CBC W/AUTO [id number] 00:00:00 Test Item Value Reference Range Interpretation [...] code = 1015) 310 K/UL CBC W/AUTO [id number] 00:00:00 Test Item Value Reference Range Interpretation [...] code = 1015) 310 K/UL CBC W/AUTO [id number] 00:00:00 Test Item Value Reference Range Interpretation [...] code = 1015) 310 K/UL COMPREHENSIVE METABOLIC [id number] 00:00:00 Test Item Value Reference Range Interpretation Comments GLUCOSE (test code = 2217) 73 MG/DL BUN (test code = 2208) 10 MG/DL CREATININE (test code = 2214) 0.51 MG/DL eGFR AMER. (test code 158 ML/MIN/1.73 = 81231) eGFR NON- AMER. (test 136 ML/MIN/1.73 code = 78034) CALCULATED BUN/CREAT (test 20 RATIO code = [...] code = 2219) 23 U/L COMPREHENSIVE METABOLIC [id number] 00:00:00 Test Item Value Reference Range Interpretation Comments GLUCOSE (test code = 2217) 73 MG/DL BUN (test code = 2208) 10 MG/DL CREATININE (test code = 2214) 0.51 MG/DL eGFR AMER. (test code 158 ML/MIN/1.73 = 24566) eGFR NON- AMER. (test 136 ML/MIN/1.73 code = 39061) CALCULATED BUN/CREAT (test 20 RATIO code = [...] (test code = 2219) 23 U/L LIPID [id number] 00:00:00 Test Item Value Reference Range Interpretation Comments CHOLESTEROL (test code = 2210) 167 MG/DL TRIGLYCERIDES (test code = 2232) 109 MG/DL HDL CHOLESTEROL (test code = 2220) 58 MG/DL CALCULATED LDL CHOL (test code = 87 MG/DL 2236) RISK RATIO LDL/HDL (test code = 1.50 RATIO 2238) LIPID [id number] 00:00:00 Test Item Value Reference Range Interpretation [...]
[2023-01-26 16:43] LABS: Absolute Lymphocytes (CBC) 1.8 K/uL (0.7-4.9); Hematocrit 38.7 % (36.0-45.0); Lymphocytes % 27.2 % (15.3-44.8); MPV 9.2 fL (7.6-11.3); RBC Red Blood Cell Count 4.72 M/uL (3.86-4.86)
[2023-01-26 16:44] LABS: Specific Gravity 1.022 (1.005-1.030)
[2023-01-26 16:47] LABS: Albumin 3.5 g/dL (3.4-5.0); Bilirubin Total 0.4 mg/dL (0.2-1.0); Protein, Total 8.3 g/dL (6.4-8.2)
[2023-01-26 16:48] LABS: Potassium 3.3 mEq/L (3.5-5.1)
[2023-01-26 16:50] LABS: Specific Gravity 1.022 (1.005-1.030); Urine Bacteria <20 /HPF (<20); Urine Bilirubin NEGATIVE (Negative); Urine Blood Negative (Negative); Urine Clarity Clear (Clear); Urine Color Yellow (Yellow); Urine Glucose NEGATIVE (Negative); Urine Mucus Slight /HPF (None Seen); Urine Protein NEGATIVE (Negative); Urine RBC <5 /HPF (None Seen); Urine Urobilinogen Normal (Normal)
--- NOTE | 2023-01-26 17:53 | RAD REPORT ---
EXAM DESCRIPTION: CTAbdomen Pelvis W Contrast - 01/26/2023 5:41 pm CLINICAL HISTORY: ABD PAIN COMPARISON: No comparisons TECHNIQUE: CT of the abdomen and pelvis was performed. All CT scans are performed using dose optimization technique as appropriate and may include automated exposure control or mA/KV adjustment according to patient size. FINDINGS: Lower chest: No acute abnormality. Liver: Too small to characterize liver lesions which are likely benign. Biliary: No biliary ductal dilatation. Stomach: No significant focal abnormality. Duodenum: No significant focal abnormality. Pancreas: No significant abnormality. Spleen: No significant abnormality. Adrenal: No suspicious lesions. Kidney/ureter: No hydronephrosis. No renal calculi. Too small to characterize and/or benign appearing renal lesions are noted. Retroperitoneum: No retroperitoneal adenopathy. Vascular: No aneurysm. Bowel: No significant focal abnormality. Normal appendix. Peritoneum: No ascites or free air. Bladder: Grossly unremarkable. Reproductive: No adnexal masses. Bones: No acute fracture. Other: n/a IMPRESSION: No acute intra-abdominal or pelvic finding. Normal appendix .
--- NOTE | 2023-01-26 18:23 | ER ---
Nurse's Notes [facility] Name: Taylor Rodriguez Age: 27 yrs Sex: Female : 1995 Arrival Date: 01/26/2023 Time: 15:17 Bed 7 Private MD: Diagnosis: Abdominal pain, unspecified;Headache Presentation: 01/26 15:45 Chief complaint: Patient states: Abdominal pain for a couple of days, nauseous. Denies nj1 constipation/diarrhea. 15:45 Coronavirus screen: Vaccine status: Patient reports receiving the 2nd dose of the covid nj1 vaccine. Ebola Screen: Patient denies travel to an Ebola-affected area in the 21 days before illness onset. Initial Sepsis Screen: Does the patient meet any 2 criteria? No. Patient's initial sepsis screen is negative. Does the patient have a suspected source of infection? No. Patient's initial sepsis screen is negative. Risk Assessment: Do you want to hurt yourself or someone else? Patient reports no desire to harm self or others. Onset of symptoms was January 22, 2023. 15:45 Method Of Arrival: Ambulatory [facility] 15:45 Acuity: MILAN 3 nj1 Historical: - Allergies: 16:12 Naproxen; nj1 - PMHx: 16:12 Anxiety; Bipolar disorder; Chronic pain; Depression; Fibromyalgia; High Blood Pressure; nj1 Schizophrenia; Sleep Apnea; - Immunization history:: Client reports receiving the 2nd dose of the Covid vaccine. - Social history:: Smoking status: Reported history of juuling and/or vaping. Screenin:29 [facility] ED Fall Risk Assessment (Adult) History of falling in the last 3 months, ph including since admission No falls in past 3 months (0 pts) Confusion or Disorientation No (0 pts) Intoxicated or Sedated No (0 pts) Impaired Gait No (0 pts) Mobility Assist Device Used No (0 pt) Altered Elimination No (0 pt) Score/Fall Risk Level 0 - 2 = Low Risk Oriented to surroundings, Maintained a safe environment, Hourly rounding (assess needs \T\ fall precautionary measures) done. Abuse screen: Denies threats or abuse. Denies injuries from another. Nutritional screening: No deficits noted. Tuberculosis screening: No symptoms or risk factors identified. Assessment: 17:26 General: Appears in no apparent distress. Behavior is cooperative, appropriate for age. ph Pain: Complains of pain in abdomen. Neuro: Level of Consciousness is awake, alert, obeys commands, Oriented to person, place, time, situation. Cardiovascular: Capillary refill < 3 seconds in bilateral fingers Patient's skin is warm and dry. Respiratory: Airway is patent Respiratory effort is even, unlabored. GI: Abdomen is obese, Reports upper abdominal pain, nausea, Patient currently denies diarrhea, vomiting. : No signs and/or symptoms were reported regarding the genitourinary system. Derm: Skin is healthy with good turgor, Skin is pink, warm \T\ dry. Vital Signs: 15:45 BP 138 / 104; Pulse 71; Resp 16; Temp 98.2; Pulse Ox 97% on R/A; Weight 99.79 kg (R); nj1 Height 5 ft. 3 in. (R); 17:26 BP 145 / 101; Pulse 72; Resp 18; Pulse Ox 97% on R/A; ph 19:17 BP 137 / 98; Pulse 71; Resp 18; Temp 98; Pulse Ox 99% on R/A; ph 15:45 Body Mass Index 38.97 (99.79 kg, 160.02 cm) nj ED Course: 15:19 Patient arrived in ED. ts1 15:19 Last Saldaña PA is PHCP. cp 15:19 Moses Bell MD is Attending Physician. cp 15:43 Elba Stanton, ROQUE is Primary Nurse. ph 15:45 Patient placed in an exam room. nj1 16:12 Triage completed. nj1 16:13 Arm band placed on. nj1 16:29 Initial lab(s) drawn, by mo, sent to lab. Inserted saline lock: 22 gauge in right ph antecubital area, using aseptic technique. Blood collected. 16:50 Patient has correct armband on for positive identification. Bed in low position. Call ph light in reach. Side rails up X 1. Pulse ox on. NIBP on. 17:29 Inserted saline lock: 20 gauge in left antecubital area, using aseptic technique. 7 17:43 CT Abd/Pelvis - IV Contrast Only In Process Unspecified. EDMS 17:53 No provider procedures requiring assistance completed. ph 19:16 IV discontinued, intact, bleeding controlled, No redness/swelling at site. Pressure ph dressing applied. Administered Medications: 16:28 Drug: Ketorolac IVP 15 mg Route: IVP; Site: right antecubital; ph 17:52 Follow up: Response: No adverse reaction ph 16:28 Drug: NS 0.9% IV 1000 ml Route: IV; Rate: 500 ml/hr; Site: right antecubital; ph 17:53 Follow up: Response: No adverse reaction; IV Status: Completed infusion ph 16:28 Drug: metoCLOPramide IVP 10 mg Route: IVP; Site: left antecubital; ph 17:52 Follow up: Response: No adverse reaction ph 18:35 Drug: Potassium PO Effervescent Tablet 50 mEq Route: PO; ll1 19:17 Follow up: Response: No adverse reaction ph Medication: 16:50 VIS not applicable for this client. ph Outcome: 18:22 Discharge ordered by MD. cp 19:16 Discharged to home via wheelchair. ph 19:16 Condition: good 19:16 Discharge instructions given to patient, Instructed on discharge instructions, follow up and referral plans. medication usage, Demonstrated understanding of instructions, follow-up care, medications, Prescriptions given X 2. 19:17 Patient left the ED. ph Signatures: Dispatcher [employer] EDMS Elba Stanton RN RN ph Last Saldaña PA PA cp Leal, Jahala, RN RN jl7 Dakotah Garduno RN RN ll1 Landy Sewell RN RN nj1 Porsha Carter, PAS PAS ts1
--- NOTE | 2023-01-26 18:23 | EDPHYS ---
Physician Documentation [facility] Name: Taylor Rodriguez Age: 27 yrs Sex: Female : 1995 Arrival Date: 01/26/2023 Time: 15:17 Bed 7 Private MD: ED Physician Moses Bell HPI: 01/26 16:00 This 27 yrs old Black Female presents to ER via Ambulatory with complaints of Abdominal cp Pain. 16:00 The patient presents with abdominal pain. Onset: The symptoms/episode began/occurred cp for past couple days. The symptoms do not radiate. Associated signs and symptoms: Pertinent positives: headache, nausea, Pertinent negatives: chest pain, constipation, diarrhea, dysuria, fever, vaginal discharge, vomiting. The symptoms are described as constant. Severity of pain: in the emergency department the pain is unchanged despite home interventions. Historical: - Allergies: 16:12 Naproxen; nj1 - PMHx: 16:12 Anxiety; Bipolar disorder; Chronic pain; Depression; Fibromyalgia; High Blood Pressure; nj1 Schizophrenia; Sleep Apnea; - Immunization history:: Client reports receiving the 2nd dose of the Covid vaccine. - Social history:: Smoking status: Reported history of juuling and/or vaping. ROS: 16:05 Constitutional: Negative for body aches, chills, fever, poor PO intake. cp 16:05 Eyes: Negative for injury, pain, redness, and discharge. cp 16:05 ENT: Negative for drainage from ear(s), ear pain, sore throat, difficulty swallowing, difficulty handling secretions. 16:05 Cardiovascular: Negative for chest pain. 16:05 Respiratory: Negative for cough, shortness of breath, wheezing. 16:05 Abdomen/GI: Positive for abdominal pain, Negative for vomiting, diarrhea, constipation, black/tarry stool, rectal bleeding. 16:05 : Negative for urinary symptoms, vaginal bleeding, vaginal discharge. 16:05 Neuro: Positive for headache, Negative for altered mental status, weakness. 16:05 All other systems are negative. Exam: 16:10 Constitutional: The patient appears in no acute distress, alert, awake, cp non-diaphoretic, non-toxic, well developed, well nourished, obese. 16:10 Head/Face: Normocephalic, atraumatic. cp 16:10 Eyes: Periorbital structures: appear normal, Conjunctiva: normal, no exudate, no injection, Sclera: no appreciated abnormality, Lids and lashes: appear normal, bilaterally. 16:10 ENT: External ear(s): are unremarkable, Nose: is normal, Mouth: Lips: moist, Oral mucosa: moist, Posterior pharynx: is normal, airway is patent, no erythema, no exudate. 16:10 Chest/axilla: Inspection: normal. 16:10 Cardiovascular: Rate: normal. 16:10 Respiratory: the patient does not display signs of respiratory distress, Respirations: normal, no use of accessory muscles, no retractions, labored breathing, is not present, Breath sounds: are clear throughout, no decreased breath sounds, no stridor, no wheezing. 16:10 Abdomen/GI: Inspection: obese Bowel sounds: active, all quadrants, Palpation: soft, in all quadrants, moderate abdominal tenderness, in the umbilical area, right lower quadrant and left lower quadrant, rebound tenderness, is not appreciated, involuntary guarding, is not appreciated. 16:10 Back: CVA tenderness, is absent. Vital Signs: 15:45 BP 138 / 104; Pulse 71; Resp 16; Temp 98.2; Pulse Ox 97% on R/A; Weight 99.79 kg (R); nj1 Height 5 ft. 3 in. (R); 17:26 BP 145 / 101; Pulse 72; Resp 18; Pulse Ox 97% on R/A; ph 19:17 BP 137 / 98; Pulse 71; Resp 18; Temp 98; Pulse Ox 99% on R/A; ph 15:45 Body Mass Index 38.97 (99.79 kg, 160.02 cm) [facility] MDM: 15:44 Patient medically screened. cp 16:00 Differential diagnosis: appendicitis, bowel obstruction, cholecystitis, Cholelithiasis, cp diverticulitis, Endometriosis, gastritis, non-specific abd pain, Pelvic Inflammatory Disease, Pyelonephritis, Ureterolithiasis, urinary tract infection. 18:21 Data reviewed: vital signs, nurses notes, lab test result(s), radiologic studies, CT cp scan. 18:21 Consideration of Admission/Observation Escalation of care including cp admission/observation considered. I considered the following discharge prescriptions or medication management in the emergency department Medications were administered in the Emergency Department. See MAR. Counseling: I had a detailed discussion with the patient and/or guardian regarding: the historical points, exam findings, and any diagnostic results supporting the discharge/admit diagnosis, lab results, radiology results, to return to the emergency department if symptoms worsen or persist or if there are any questions or concerns that arise at home. Response to treatment: the patient's symptoms have markedly improved after treatment, and as a result, I will discharge patient. Special discussion: Based on the patient's Hx, exam, and Dx evaluation, there is no indication for emergent surgery or inpatient Tx. It is understood by the patient/guardian that if the Sx's persist or worsen they need to return immediately for re-evaluation. 01/26 15:52 Order name: CBC with Diff cp 01/26 16:51 Interpretation: Normal except: MCH 26.9; RDW 15.3; EOSINOPHIL % 16.6; EOSA 1.1. cp 01/26 15:52 Order name: CMP; Complete Time: 16:51 cp 01/26 17:55 Interpretation: Normal except: NA 135; K 3.3; AST 12; TP 8.3; GLOB 4.8; A/G 0.7. cp 01/26 15:52 Order name: Lipase; Complete Time: 16:51 cp 01/26 15:52 Order name: Test, Urine; Complete Time: 16:51 cp 01/26 15:52 Order name: Urinalysis w/ reflexes; Complete Time: 16:51 cp 01/26 16:52 Order name: CT Abd/Pelvis - IV Contrast Only; Complete Time: 18:03 cp 01/26 15:52 Order name: IV Saline Lock; Complete Time: 16:15 cp 01/26 15:52 Order name: Labs collected and sent; Complete Time: 16:15 cp Administered Medications: 16:28 Drug: Ketorolac IVP 15 mg Route: IVP; Site: right antecubital; ph 17:52 Follow up: Response: No adverse reaction ph 16:28 Drug: NS 0.9% IV 1000 ml Route: IV; Rate: 500 ml/hr; Site: right antecubital; ph 17:53 Follow up: Response: No adverse reaction; IV Status: Completed infusion ph 16:28 Drug: metoCLOPramide IVP 10 mg Route: IVP; Site: left antecubital; ph 17:52 Follow up: Response: No adverse reaction ph 18:35 Drug: Potassium PO Effervescent Tablet 50 mEq Route: PO; ll1 19:17 Follow up: Response: No adverse reaction ph Disposition: 01/27 17:01 Co-signature as Attending Physician, Moses Bell MD I reviewed the patient's care rn provided by the Advanced Practice Provider and agree with the diagnosis and treatment plan. Disposition Summary: 01/26/23 18:22 Discharge Ordered Location: Home cp Problem: new cp Symptoms: have improved cp Condition: Stable cp Diagnosis - Abdominal pain, unspecified cp - Headache cp Followup: cp - With: Private Physician - When: 1 - 2 days - Reason: Worsening of condition Discharge Instructions: - Discharge Summary Sheet cp - Abdominal Pain, Adult cp - General Headache Without Cause cp Forms: - Medication Reconciliation Form cp - Thank You Letter cp - Antibiotic Education cp - Prescription Opioid Use cp Prescriptions: - Reglan 10 mg Oral Tablet - take 1 tablet by ORAL route every 6 hours take 30 minutes before meals and at cp bedtime; 20 tablet; Refills: 0, Product Selection Permitted - dicyclomine 20 mg Oral Tablet - take 1 tablet by ORAL route 4 times per day; 30 tablet; Refills: 0, Product cp Selection Permitted Signatures: Dispatcher [employer] Moses Palacios MD MD rn Hall, Patricia, RN RN ph Last Saldaña PA PA cp Dakotah Garduno RN RN ll1 Landy Sewell RN RN nj1 Corrections: (The following items were deleted from the chart) 01/26 17:55 16:51 Normal except: NA 135; K 3.3. cp cp
[2023-01-26] MEDS ORDERED: POTASSIUM 25 MEQ EFFERV TAB ONE (18:35)
[2023-01-26 19:41] VITALS: BP 137/98; TEMP 98; O2SAT 99
[2023-01-26 19:50] LABS: Blood Morphology Comment NOT SEEN (NOT SEEN); Platelet Estimate ADEQ
== END 2023-01-26 19:17 | disposition home or self-care (01) ==
LOC: ER 15:17
DX: R10.32 Left lower quadrant pain (principal); R10.31 Right lower quadrant pain; R51.9 Headache, unspecified; I10 Essential (primary) hypertension; Z88.6 Allergy status to analgesic agent
CPT/HCPCS: 85025; 81001; 36415; 81025; 83690; 80053; 74177; 99284; Q9967; J2765; J7040

== ENCOUNTER 2023-02-05 10:08 | Emergency (ER) | payer OTHER ==
--- OUTSIDE RECORDS SUMMARY | 2023-02-05 10:23 | XMS REPORT | Continuity of Care Document ---
:[address] [facility] [place], [place] Address [address] [place] [address] Care Team Providers Name Role Phone Roman YOUNG, [facility] Primary Care Physician [phone] DARLIN VICK Attending Clinician Unavailable SPENSER STOKES Attending Clinician Unavailable GAURAV PURVIS Attending Clinician Unavailable KEYONNA BRIONES Attending Clinician Unavailable LAB90 Attending Clinician Unavailable BYRON MALHOTRA Attending Clinician Unavailable ROBYN GARY Attending Clinician Unavailable JAROD MOMIN Attending Clinician Unavailable PLABPA Attending Clinician Unavailable JENNIFER BYNUM Attending Clinician Unavailable JALYN CRUZ Attending Clinician Unavailable MD ARAVIND Attending Clinician Unavailable MANOLO MARTINEZ Attending Clinician Unavailable GAUTAM GIVENS Attending Clinician Unavailable PL, TECH 1 Attending Clinician Unavailable LAB47 Attending Clinician Unavailable MARIANO Attending Clinician Unavailable ANNEMARIE GRAFF Attending Clinician Unavailable Alexandre Wick Attending Clinician SHEY BIANCHI Attending Clinician Unavailable Doctor Unassigned, [place] Attending Clinician Unavailable Shey Bianchi MD Attending Clinician ALEXANDRE DELGADO Attending Clinician Unavailable Ian YOUNG, James Attending Clinician Care, 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 0-12 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 00:00: Medical [...] reaction 00 to drug Naproxen Propensi Active Johann Bowles ty to 01-06 reaction( Seybold adverse 00:00: [...] Active Univers ALLERGIE Class ity of [facility] Social History Social Habit Start Date Stop Date Quantity Comments Source Gender identity 2022-09-04 Identifies as Jelena Ibrahim - 10:33:35 male gender External (finding) Sexual orientation 2022-09-04 Jelena Seybold - 10:33:35 External Exposure to Not sure University of SARS-CoV-2 (event) [facility] History of tobacco Cigarette Smoker Jelena Ibrahim - use External History SDOH Jelena Ashley ld - Alcohol Frequency Externa l History SDOH Jelena Ashley ld - Alcohol Std Drinks General Contractor al History SDOH Jelena Ashley ld - Alcohol Binge External Alcohol intake 2023-01-28 2023-01-28 Current drinker Beth Ibrahim - 00:00:00 00:00:00 of alcohol External (finding) History of Social 2022-12-22 2022-12-22 Jelena Eatonold - function 00:00:00 00:00:00 External Tobacco use and 2022-12-22 2022-12-22 Smokeless tobacco Ke sveta Guevaraybold - exposure 00:00:00 00:00:00 non-user External Alcohol Comment 2022-09-09 2022-09-09 rare Jelenalit allenold - 00:00:00 00:00:00 External Tobacco Comment 2019-08-16 2019-08-16 Quit Universit y of 00:00:00 00:00:00 smoking/vaping [facility] earlier this year Branch Sex Assigned At [birth year] F Jelena Guevara ybmarcel - 00:00:00 00:00:00 External Smoking Status Start Date Stop Date Source Occasional tobacco 2022-12-22 00:00:00 Jelena allenmarcel - smoker External Never smoked tobacco Jelena Eaton old - External Former smoker 2020-09-07 00:00:00 2020-09-07 [place] [facility] 00:00:00 Medical Branch Medications Ordered Filled Start Stop Current Ordering Indication Dosage Frequency Signature Comments Components Source Medication Medication Date Date Medication? Clinician (SIG) Name Name Metoclopram Yes 10mg Take 1 Ashlie ey jonathan HCl 5-31 tablet (10 Seybol d (Reglan) 10 10:58: mg total) - MG oral 34 by mouth 4 General Contractor a Tablet times l daily Dicyclomine Yes 20mg Take 1 Ashlie ey HCl 20 MG 5-31 tablet (20 Seyb old oral Tablet 10:58: mg total) - 34 by mouth Externa every 6 l (six) hours Cyanocobala 2023-0 Yes Take by Reynold sey min 5-31 mouth Seybold (VITAMIN B 10:55: - 12 OR) 58 Externa l Topiramate 2022-0 Yes Topamax Ashlie ey (Topamax) 5-31 25mg Start Seyb old 25 MG oral 00:00: 1 po qd x - Tablet 00 3 days, 1 Externa po q 12 l hrs x 3 days, then 2 po q 12 hrs, Meclizine 2022-0 Yes [id number] TAKE ONE Jelena HCl 25 MG 5-22 (1) Seybold oral Tablet 00:00: TABLET(S) - 00 BY MOUTH Externa THREE l TIMES A DAY NEEDED. Losartan 2022-0 Yes [id number] 1{tbl} Take 1 K elsey Potassium-H 5-15 tablet by Lit romano CTZ 50-12.5 00:00: mouth - MG oral 00 daily Externa Tablet l Gabapentin 2022-0 Yes [id number] 100mg Take 1 Jelena 100 MG oral 5-15 capsule Seybo ld Capsule 00:00: (100 mg - 00 total) by Externa mouth 3 l times daily Trazodone 2022-0 2022- No [id number] 100mg Take 1 Jelena HCl 100 MG 5-01 05-01 tablet Seybol d oral Tablet 11:10: 00:00 (100 mg - 14 :00 total) by Externa mouth at l bedtime Cyanocobala 2022-0 Yes Take by Reynold woodard min 5-01 mouth Seybold (VITAMIN B 09:56: - 12 OR) 28 Externa l Tramadol 2022-0 Yes [id number] 50mg Q.25D Take 1 K elsey HCl 5-01 tablet (50 Seybold (ULTRAM) 50 00:00: mg total) - MG oral 00 by mouth Externa Tablet every 6 l hours as needed for pain Tramadol 2022-0 Yes [id number] 50mg Q.25D Take 1 K elsey HCl 5-01 tablet (50 Seybold (ULTRAM) 50 00:00: mg total) - MG oral 00 by mouth Externa Tablet every 6 l hours as needed for pain hydrOXYzine 2022-0 Yes Jelena HCl 25 MG 4-26 Seybold oral Tablet 00:00: - 00 Externa l hydrOXYzine 2022-0 Yes Jelena HCl 25 MG 4-26 Seybold oral Tablet 00:00: - 00 Externa l Trazodone 2022-0 Yes [id number] 100mg Take 1 K elsey HCl 100 MG 4-24 tablet Seybold oral Tablet 08:55: (100 mg - 22 total) by Externa mouth at l bedtime Cyanocobala 2022-0 Yes Take by Reynold sey min 4-24 mouth Seybold (VITAMIN B 08:55: - 12 OR) 22 Externa l Albuterol 2022-0 Yes [id number] 2{puff} Q.25D Inhale 2 Jelena HFA 108 (90 4-24 puffs into Se ybold Base) 00:00: the lungs - MCG/ACT IN 00 every 6 General Contractor a AERS hours as l needed for wheezing or shortness of breath Meclizine 2022-0 Yes [id number] TAKE ONE Jelena HCl 25 MG 4-24 (1) Seybold oral Tablet 00:00: TABLET(S) - 00 BY MOUTH Externa THREE l TIMES A DAY NEEDED. Albuterol 2022-0 Yes [id number] 2{puff} Q.25D Inhale 2 Jelena HFA 108 (90 4-24 puffs into Se ybold Base) 00:00: the lungs - MCG/ACT IN 00 every 6 General Contractor a AERS hours as l needed for wheezing or shortness of breath Albuterol 2022-0 Yes [id number] 2{puff} Q.25D Inhale 2 Jelena HFA 108 (90 4-24 puffs into Se ybold Base) 00:00: the lungs - MCG/ACT IN 00 every 6 General Contractor a AERS hours as l needed for wheezing or shortness of breath Cyclobenzap 2022-0 Yes 10mg Q.[id number] Take 1 Jelena rine HCl 10 4-22 [id number] tablet (10 Seybold MG oral 00:00: 3D mg total) - Tablet 00 by mouth Externa every 8 l hours as needed Cyclobenzap 2023-0 Yes 10mg Q.[id number] Take 1 Jelena rine HCl 10 4-22 [id number] tablet (10 Seybold MG oral 00:00: 3D mg total) - Tablet 00 by mouth Externa every 8 l hours as needed Cyclobenzap 2023-0 Yes 10mg Q.[id number] Take 1 Jelena rine HCl 10 - [id number] tablet (10 Seybold MG oral 00:00: 3D mg total) - Tablet 00 by mouth Externa every 8 l hours as needed Gabapentin 2022-0 Yes [id number] 100mg Take 1 Jelena 100 MG oral 4-20 capsule Seybo ld Capsule 00:00: (100 mg - 00 total) by Externa mouth 3 l times daily Gabapentin 2022-0 Yes [id number] 100mg Take 1 Jelena 100 MG oral [...] Externa at bedtime l Trazodone 2022-0 Yes [id number] 100mg Take 1 K elsey HCl 100 MG 4-13 tablet Seybold oral Tablet 10:58: (100 mg - 09 total) by Externa mouth at l bedtime Cyanocobala 2022-0 Yes Take by Reynold sey min 4-13 mouth Seybold (VITAMIN B 10:58: - 12 OR) 09 Externa l Trazodone 2022-0 Yes [id number] 100mg Take 1 K elsey HCl 100 MG 4-10 tablet Seybold oral Tablet 11:00: (100 mg - 07 total) by Externa mouth at l bedtime Cyanocobala 2022-0 Yes Take by Reynold sey min 4-10 mouth Seybold (VITAMIN B 11:00: - 12 OR) 07 Externa l Propranolol 3-0 Yes [id number] TAKE ONE Jelena HCl 10 MG 4-10 (1) Seybold oral Tablet 00:00: TABLET(S) - 00 BY MOUTH Externa THREE l TIMES A DAY. Propranolol 2023-0 Yes [id number] TAKE ONE Jelena HCl 10 MG 4-10 (1) Seybold oral Tablet 00:00: TABLET(S) - 00 BY MOUTH Externa THREE l TIMES A DAY. Orphenadrin 2023-0 Yes 100mg Q.5D Take 1 Reynold sey e Citrate 4-10 tablet Seybold CR 100 MG 00:00: (100 mg - oral Tablet 00 total) by Ext jonathan 12 Hour mouth 2 l Sustained times Release daily as needed Propranolol 2023-0 Yes [id number] TAKE ONE Jelena HCl 10 MG 4-10 (1) Seybold oral Tablet 00:00: TABLET(S) - 00 BY MOUTH Externa THREE l TIMES A DAY. Orphenadrin 2023-0 Yes 100mg Q.5D Take 1 Reynold sey e Citrate 4-10 tablet Seybold CR 100 MG 00:00: (100 mg - oral Tablet 00 total) by Ext jonathan 12 Hour mouth 2 l Sustained times Release daily as needed Propranolol 2023-0 Yes [id number] TAKE ONE Jelena HCl 10 MG 4-10 (1) Seybold oral Tablet 00:00: TABLET(S) - 00 BY MOUTH Externa THREE l TIMES A DAY. Orphenadrin 2023-0 Yes 100mg Q.5D Take 1 Reynold sey e Citrate 4-10 tablet Seybold CR 100 MG 00:00: (100 mg - oral Tablet 00 total) by Ext jonathan 12 Hour mouth 2 l Sustained times Release daily as needed Meloxicam 2023-0 Yes [id number] 15mg Take 1 Jelena 15 MG oral 4-06 tablet (15 Sey bold Tablet 00:00: mg total) - 00 by mouth Externa daily l Meloxicam 2023-0 Yes [id number] 15mg Take 1 Jelena 15 MG oral 4-06 tablet (15 Sey bold Tablet 00:00: mg total) - 00 by mouth Externa daily l Meloxicam 2023-0 Yes [id number] 15mg Take 1 Jelena 15 MG oral 4-06 tablet (15 Sey bold Tablet 00:00: mg total) - 00 by mouth Externa daily l Meloxicam 2023-0 Yes [id number] 15mg Take 1 Jelena 15 MG oral 4-06 tablet (15 Sey bold Tablet 00:00: mg total) - 00 by mouth Externa daily l Meloxicam 2022-0 Yes [id number] 15mg Take 1 Jelena 15 MG oral 4-06 tablet (15 Sey bold Tablet 00:00: mg total) - 00 by mouth Externa daily l Duloxetine 3-0 Yes 30mg Take 1 Kelse y HCl 30 MG 3-31 capsule Seybold oral Cap DR 00:00: (30 mg - Particles 00 total) by Exter na mouth l every morning Duloxetine 3-0 Yes 30mg Take 1 Kelse y HCl 30 MG 3-31 capsule Seybold oral Cap [address] 00:00: (30 mg - Particles 00 total) by Exter na mouth l every morning Duloxetine 3-0 Yes 30mg Take 1 Kelse y HCl 30 MG 3-[address] capsule Seybold [address] Cap [address] 00:00: (30 mg - Particles 00 total) by Exter na mouth l every morning Meclizine 3-0 Yes [id number] TAKE ONE Jelena HCl 25 MG 3-24 (1) Seybold oral Tablet 00:00: TABLET(S) - 00 BY MOUTH Externa THREE l TIMES A DAY NEEDED. Meclizine 2023-0 Yes [id number] TAKE ONE Jelena HCl 25 MG 3-24 (1) Seybold oral Tablet 00:00: TABLET(S) - 00 BY MOUTH Externa THREE l TIMES A DAY NEEDED. Meclizine 2023-0 Yes [id number] TAKE ONE Jelena HCl 25 MG 3-24 (1) Seybold oral Tablet 00:00: TABLET(S) - 00 BY MOUTH Externa THREE l TIMES A DAY NEEDED. Losartan 3-0 Yes [id number] 1{tbl} Take 1 K elsey Potassium-H 3-22 tablet by Sey bold CTZ 50-12.5 00:00: mouth - MG oral 00 daily Externa Tablet l Losartan 2023-0 Yes [id number] 1{tbl} Take 1 K elsey Potassium-H 3-22 tablet by Sey bold CTZ 50-12.5 00:00: mouth - MG oral 00 daily Externa Tablet l Losartan 2023-0 Yes [id number] 1{tbl} Take 1 K elsey Potassium-H 3-22 tablet by Sey bold CTZ 50-12.5 00:00: mouth - MG oral 00 daily Externa Tablet l Losartan 2022-0 Yes [id number] 1{tbl} Take 1 K elsey Potassium-H 3-22 tablet by Lit romano CTZ 50-12.5 00:00: mouth - MG oral 00 daily Externa Tablet l Propranolol 2022-0 2022- No [id number] TAKE ONE Jelena HCl 10 MG 3-10 04-10 (1) Seybold oral Tablet 00:00: 00:00 TABLET(S) - 00 :00 BY MOUTH Externa THREE l TIMES A DAY. Cholecalcif 2022-0 2022- No [id number] 27465H Take 1 Jelena juan 1.25 3-02 04-10 capsule Seybol d MG ([id number] 00:00: 00:00 (50,000 - UT) oral 00 :00 units Externa Capsule total) by l mouth twice a week for 8 doses Trazodone 2022-0 Yes [id number] 100mg Take 100 Jelena HCl 100 MG 2-28 mg by Seybold oral Tablet 09:11: mouth at - 07 bedtime Externa l Cyanocobala 0 Yes Take by Reynold sey min 2-28 mouth Seybold (VITAMIN B 09:11: - 12 OR) 07 Externa l hydroCHLORO 0 Yes TAKE ONE Ke lsey thiazide 2-23 (1) Seybold 12.5 MG 00:00: CAPSULE(S) - oral 00 BY MOUTH Externa Capsule ONCE A l DAY. hydroCHLORO 0 Yes TAKE ONE Ke lsey thiazide 2-23 (1) Seybold 12.5 MG 00:00: CAPSULE(S) - oral 00 BY MOUTH Externa Capsule ONCE A l DAY. hydroCHLORO 0 Yes TAKE ONE Ke lsey thiazide 2-23 [...] l DAY. hydroCHLORO 2023-0 Yes TAKE ONE Jc bangura thiazide 2-23 (1) Seybold 12.5 MG 00:00: CAPSULE(S) - oral 00 BY MOUTH Externa Capsule ONCE A l DAY. hydrOXYzine 2023-0 Yes 50mg Q.[id number] Take 1 Jelena HCl 50 MG 2-13 [id number] tablet (50 Seybold oral Tablet 00:00: 3D mg total) - 00 by mouth Externa every 8 l hours as needed hydrOXYzine 2023-0 Yes 50mg Q.[id number] Take 1 Jelena HCl 50 MG 2-13 [id number] tablet (50 Seybold oral Tablet 00:00: 3D mg total) - 00 by mouth Externa every 8 l hours as needed hydrOXYzine 2023-0 Yes 50mg Q.[id number] Take 1 Jelena HCl 50 MG 2-13 [id number] tablet (50 Seybold oral Tablet 00:00: 3D mg total) - 00 by mouth Externa every 8 l hours as needed Losartan 2023-0 Yes [id number] 1{tbl} Take 1 K elsey Potassium-H 2-10 tablet by Sey bold CTZ 50-12.5 00:00: mouth - MG oral 00 daily Externa Tablet l Meclizine 2023-0 Yes [id number] 25mg Q.[id number] Take 1 Jelena HCl 25 MG 2-10 [id number] tablet (25 Seybold oral Tablet 00:00: 3D mg total) - 00 by mouth 3 Externa times l daily as needed Propranolol 2023-0 Yes [id number] 10mg Take 1 Jelena HCl 10 MG 2-10 tablet (10 Seyb old oral Tablet 00:00: mg total) - 00 by mouth 3 Externa times l daily Losartan 2023-0 Yes [id number] 1{tbl} Take 1 K elsey Potassium-H 2-10 tablet by Sey bold CTZ 50-12.5 00:00: mouth - MG oral 00 daily Externa Tablet l Meclizine 2023-0 Yes [id number] 25mg Q.[id number] Take 1 Jelena HCl 25 MG 2-10 [id number] tablet (25 Seybold oral Tablet 00:00: 3D mg total) - 00 by mouth 3 Externa times l daily as needed Propranolol Yes [id number] 10mg Take 1 Jelena HCl 10 MG 2-10 tablet (10 Seyb old oral Tablet 00:00: mg total) - 00 by mouth 3 Externa times l daily Doxycycline Yes [id number] 100mg Take 1 Jelena Hyclate 100 1-31 tablet Seybol d MG oral 00:00: (100 mg - Tablet 00 total) by Externa mouth 2 l times daily Doxycycline 2022- No [id number] 100mg Take 1 Jelena Hyclate 100 1-31 02-28 tablet Seybo ld MG oral 00:00: 00:00 (100 mg - Tablet 00 :00 total) by Externa mouth 2 l times daily Trulicity Yes [id number] .75mg Inject Jelena 0.75 1-28 0.75 mg Seybold MG/0.5ML 00:00: into the - subcutaneou 00 skin once Ext jonathan s Solution a week l Pen-injecto r Trulicity Yes [id number] .75mg Inject Jelena 0.75 1-28 0.75 mg Seybold MG/0.5ML 00:00: into the - subcutaneou 00 skin once Ext jonathan s Solution a week l Pen-injecto r Trulicity Yes [id number] .75mg Inject Jelena 0.75 1-28 0.75 mg Seybold MG/0.5ML 00:00: into the - subcutaneou 00 skin once Ext jonathan s Solution a week l Pen-injecto r Trulicity Yes [id number] .75mg Inject Jelena 0.75 1-28 0.75 mg Seybold MG/0.5ML 00:00: into the - subcutaneou 00 skin once Ext jonathan s Solution a week l Pen-injecto r Aripiprazol 2022- No Kelse y e 20 MG 1-25 01-25 Seybold oral Tablet 11:11: 00:00 - 39 :00 Externa l Aripiprazol 2022- No [id number] 10mg Take 10 mg Jelena e 10 MG 1-25 -25 by mouth 2 Seybo ld oral Tablet 11:11: 00:00 times - 26 :00 daily Externa l Trazodone Yes [id number] 100mg Take 100 Jelena HCl 100 MG 1-25 mg by Seybold oral Tablet 10:31: mouth at - 22 bedtime Externa l Cyanocobala Yes Take by Reynold sey min 1-25 mouth Seybold (VITAMIN B :: 12 OR) 22 Externa l Trazodone Yes [id number] 100mg Take 100 Jelena HCl 100 MG 1-25 mg by Seybold oral Tablet 10:31: mouth at - 22 bedtime Externa l Cyanocobala Yes Take by Reynold sey min 1-25 mouth Seybold (VITAMIN B :: 12 OR) 22 Externa l hydroCHLORO Yes [id number] 12.5mg Take 1 Jelena thiazide 1-25 capsule Seybold 12.5 MG 00:00: (12.5 mg - oral 00 total) by Externa Capsule mouth l daily Ondansetron Yes [id number] 4mg Q.[id number] Take 1 Jelena (ZOFRAN) 4 1-25 [id number] tablet (4 Seybold MG oral 00:00: 3D mg total) - TABLET 00 by mouth Externa DISPERSIBLE every 8 l hours as needed for nausea Tirzepatide Yes [id number] 2.5mg Inject 0.5 Jelena (Mounjaro) 1-25 mL (2.5 mg Sey bold 2.5 00:00: total) - MG/0.5ML 00 into the Externa subcutaneou skin once l s Solution a week Pen-injecto r Celecoxib Yes [id number] 200mg Take 1 Jelena (CeleBREX) 1-25 capsule Seybol d 200 MG oral 00:00: (200 mg - Capsule 00 total) by Externa mouth 2 l times daily Gabapentin Yes [id number] 100mg Take 1 Jelena 100 MG oral 1-25 capsule Seybo ld Capsule 00:00: (100 mg - 00 total) by Externa mouth 3 l times daily Ondansetron 2023-0 Yes [id number] 4mg Q.[id number] Take 1 Jelena (ZOFRAN) 4 1-25 [id number] tablet (4 Seybold MG oral 00:00: 3D mg total) - TABLET 00 by mouth Externa DISPERSIBLE every 8 l hours as needed for nausea Celecoxib 2022-0 Yes [id number] 200mg Take 1 Jelena (CeleBREX) 1-25 capsule Seybol d 200 MG oral 00:00: (200 mg - Capsule 00 total) by Externa mouth 2 l times daily Gabapentin 2022-0 Yes [id number] 100mg Take 1 Jelena 100 MG oral 1-25 capsule Seybo ld Capsule 00:00: (100 mg - 00 total) by Externa mouth 3 l times daily Ondansetron 2022-0 Yes [id number] 4mg Q.[id number] Take 1 Jelena (ZOFRAN) 4 1-25 [id number] tablet (4 Seybold MG oral 00:00: 3D mg total) - TABLET 00 by mouth Externa DISPERSIBLE every 8 l hours as needed for nausea Celecoxib 2022-0 Yes [id number] 200mg Take 1 Jelena (CeleBREX) 1-25 capsule Seybol d 200 MG oral 00:00: (200 mg - Capsule 00 total) by Externa mouth 2 l times daily Gabapentin 2022-0 Yes [id number] 100mg Take 1 Jelena 100 MG oral 1-25 capsule Seybo ld Capsule 00:00: (100 mg - 00 total) by Externa mouth 3 l times daily Ondansetron 2022-0 Yes [id number] 4mg Q.[id number] Take 1 Jelena (ZOFRAN) 4 1-25 [id number] tablet (4 Seybold MG oral 00:00: 3D mg total) - TABLET 00 by mouth Externa DISPERSIBLE every 8 l hours as needed for nausea Gabapentin 2022-0 Yes [id number] 100mg Take 1 Jelena 100 MG oral 1-25 capsule Seybo ld Capsule 00:00: (100 mg - 00 total) by Externa mouth 3 l times daily Ondansetron 3-0 Yes [id number] 4mg Q.[id number] Take 1 Jelena (ZOFRAN) 4 1-25 [id number] tablet (4 Seybold MG oral 00:00: 3D mg total) - TABLET 00 by mouth Externa DISPERSIBLE every 8 l hours as needed for nausea Gabapentin 2022-0 Yes [id number] 100mg Take 1 Jelena 100 MG oral 1-25 capsule Seybo ld Capsule 00:00: (100 mg - 00 total) by Externa mouth 3 l times daily Ondansetron 2022-0 Yes [id number] 4mg Q.[id number] Take 1 Jelena (ZOFRAN) 4 1-25 [id number] tablet (4 Seybold MG oral 00:00: 3D mg total) - TABLET 00 by mouth Externa DISPERSIBLE every 8 l hours as needed for nausea Ondansetron 2022-0 Yes [id number] 4mg Q.[id number] Take 1 Jelena (ZOFRAN) 4 1-25 [id number] tablet (4 Seybold MG oral 00:00: 3D mg total) - TABLET 00 by mouth Externa DISPERSIBLE every 8 l hours as needed for nausea Ondansetron 2022-0 Yes [id number] 4mg Q.[id number] Take 1 Jelena (ZOFRAN) 4 1-25 [id number] tablet (4 Seybold MG oral 00:00: 3D mg total) - TABLET 00 by mouth Externa DISPERSIBLE every 8 l hours as needed for nausea hydroCHLORO 2022-0 3- No [id number] 12.5mg Take 1 Jelena thiazide 1-25 02-10 [...] - s Implant 00 Externa l Docusate 2022-0 Yes [id number] 100mg Take 1 Ke lsey Sodium 1-13 capsule Seybold (Colace) 00:00: (100 mg - 100 MG oral 00 total) by Ext jonathan Capsule mouth l daily Ferrous 0 Yes [id number] 325mg Take 1 Reynold sey Sulfate 1-13 tablet Seybold (Iron) 325 00:00: (325 mg - (65 Fe) MG 00 total) by Exte rna oral Tablet mouth l daily (with breakfast) Docusate 0 Yes [id number] 100mg Take 1 Ke lsey Sodium 1-13 capsule Seybold (Colace) 00:00: (100 mg - 100 MG oral 00 total) by Ext jonathan Capsule mouth l daily Ferrous 2022-0 Yes [id number] 325mg Take 1 Reynold sey Sulfate 1-13 tablet Seybold (Iron) 325 00:00: (325 mg - (65 Fe) MG 00 total) by Exte rna oral Tablet mouth l daily (with breakfast) Docusate 2022-0 Yes [id number] 100mg Take 1 Ke lsey Sodium 1-13 capsule Seybold (Colace) 00:00: (100 mg - 100 MG oral 00 total) by Ext jonathan Capsule mouth l daily Ferrous 2022-0 Yes [id number] 325mg Take 1 Reynold sey Sulfate 1-13 tablet Seybold (Iron) 325 00:00: (325 mg - (65 Fe) MG 00 total) by Exte rna oral Tablet mouth l daily (with breakfast) Docusate 2022-0 Yes [id number] 100mg Take 1 Ke lsey Sodium 1-13 capsule Seybold (Colace) 00:00: (100 mg - 100 MG oral 00 total) by Ext jonathan Capsule mouth l daily Ferrous Yes [id number] 325mg Take 1 Reynold sey Sulfate 1-13 tablet Seybold (Iron) 325 00:00: (325 mg - (65 Fe) MG 00 total) by Exte rna oral Tablet mouth l daily (with breakfast) Docusate 0 Yes [id number] 100mg Take 1 Ke lsey Sodium 1-13 capsule Seybold (Colace) 00:00: (100 mg - 100 MG oral 00 total) by Ext jonathan Capsule mouth l daily Ferrous Yes [id number] 325mg Take 1 Reynold sey Sulfate 1-13 tablet Seybold (Iron) 325 00:00: (325 mg - (65 Fe) MG 00 total) by Exte rna oral Tablet mouth l daily (with breakfast) Docusate 0 Yes [id number] 100mg Take 1 Ke lsey Sodium 1-13 capsule Seybold (Colace) 00:00: (100 mg - 100 MG oral 00 total) by Ext jonathan Capsule mouth l daily Ferrous Yes [id number] 325mg Take 1 Reynold sey Sulfate 1-13 tablet Seybold (Iron) 325 00:00: (325 mg - (65 Fe) MG 00 total) by Exte rna oral Tablet mouth l daily (with breakfast) Docusate 0 Yes [id number] 100mg Take 1 Ke lsey Sodium 1-13 capsule Seybold (Colace) 00:00: (100 mg - 100 MG oral 00 total) by Ext jonathan Capsule mouth l daily Ferrous 0 Yes [id number] 325mg Take 1 Reynold sey Sulfate 1-13 tablet Seybold (Iron) 325 00:00: (325 mg - (65 Fe) MG 00 total) by Exte rna oral Tablet mouth l daily (with breakfast) Docusate 0 Yes [id number] 100mg Take 1 Ke lsey Sodium 1-13 capsule Seybold (Colace) 00:00: (100 mg - 100 MG oral 00 total) by Ext jonathan Capsule mouth l daily Ferrous 0 Yes [id number] 325mg Take 1 Reynold sey Sulfate 1-13 tablet Seybold (Iron) 325 00:00: (325 mg - (65 Fe) MG 00 total) by Exte rna oral Tablet mouth l daily (with breakfast) Nitrofurant 0 2022- No [id number] 100mg Take 1 Jelena oin Monohyd 1-13 -25 capsule Seyb old Macro 00:00: 00:00 (100 mg - (Macrobid) 00 :00 total) by Exte rna 100 MG oral mouth 2 l Capsule times daily Trazodone Yes 100mg Take 100 Reynold sey HCl 100 MG 1-10 mg by [...] daily Externa l Cyanocobala Yes Take by Reynold sey min 1-10 mouth Seybold (VITAMIN B [...] 1-11 00:00: 00 LYRICA 150 2019-08 Yes [id number] Take 1 Univers mg capsule 2-21 capsule by ity of 00:00: mouth [place] 00 twice a Medical day for Branch neuropathi c pain as directed by physician. LYRICA 150 2019-08 Yes [id number] Take 1 Univers mg capsule 2-21 capsule by ity of 00:00: mouth [place] 00 twice a Medical day for Branch neuropathi c pain as directed by physician. LYRICA 150 2019-08 Yes [id number] Take 1 [facility] mg capsule 2-21 capsule by ity of 00:00: mouth [place] 00 twice a Medical day for Branch neuropathi c pain as directed by physician. LYRICA 150 2019-08 Yes [id number] Take 1 [facility] mg capsule 2-21 capsule by ity of 00:00: mouth [place] 00 twice a Medical day for Branch neuropathi c pain as directed by physician. LYRICA 150 2019-08 Yes [id number] Take 1 [facility] mg capsule 2-21 capsule by ity of 00:00: mouth [place] 00 twice a Medical day for Branch neuropathi c pain as directed by physician. LYRICA 150 2019-08 Yes [id number] Take 1 Univers mg capsule 2-21 capsule by ity of 00:00: mouth [place] 00 twice a Medical day for Branch neuropathi c pain as directed by physician. LYRICA 150 2019-08 Yes [id number] Take 1 [facility] mg capsule 2-21 capsule by ity of 00:00: mouth [place] 00 twice a Medical day for Branch neuropathi c pain as directed by physician. DULOXETINE 2019-0 2020- No 60mg Take 60 mg [facility] [...] 58 :00 times Medical daily. Branch aripiprazol 2019- 2020- No 5mg Take 5 mg [facility] e (ABILIFY 05-17 by mouth 2 it y of ORAL) 16:16: 00:00 (two) [place] 00 :00 times Medical daily. Branch aripiprazol 2019-0 2020- No 5mg Take 5 mg [facility] e (ABILIFY 05-17 by mouth 2 it y of ORAL) 16:16: 00:00 (two) [place] 00 :00 times Medical daily. Branch aripiprazol 2020-0 2020- No 5mg Take 5 mg [facility] e (ABILIFY 05-17 by mouth 2 it y of ORAL) 16:16: 00:00 (two) [place] 00 :00 times Medical daily. Branch ofloxacin 2020-0 Yes [id number] 5[drp] Place 5 [facility] 0.3 % otic 9-17 [id number] Drops in ity of drops 00:00: both ears [place] 00 3 (three) Medical times Branch daily. ofloxacin 2020-0 Yes [id number] 5[drp] Place 5 [facility] 0.3 % otic 9-17 [id number] Drops in ity of drops 00:00: both ears [place] 00 3 (three) Medical times Branch daily. ofloxacin 2020-0 Yes [id number] 5[drp] Place 5 [facility] 0.3 % otic 9-17 [id number] Drops in ity of drops 00:00: both ears [place] 00 3 (three) Medical times Branch daily. ofloxacin 2020-0 Yes [id number] 5[drp] Place 5 [facility] 0.3 % otic 9-17 [id number] Drops in ity of drops 00:00: both ears [place] 00 3 (three) Medical times Branch daily. ofloxacin 2020-0 Yes [id number] 5[drp] Place 5 [facility] 0.3 % otic 9-17 [id number] Drops in ity of drops 00:00: both ears [place] 00 3 (three) Medical times Branch daily. ofloxacin 2020-0 Yes [id number] 5[drp] Place 5 [facility] 0.3 % otic 9-17 [id number] Drops in ity of drops 00:00: both ears [place] 00 3 (three) Medical times Branch daily. ofloxacin 2020-0 Yes [id number] 5[drp] Place 5 [facility] 0.3 % otic 9-17 [id number] Drops in ity of drops 00:00: both ears [place] 00 3 (three) Medical times Branch daily. ofloxacin 2020-0 Yes [id number] 5[drp] Place 5 [facility] 0.3 % otic 9-17 [id number] Drops in ity of drops 00:00: both ears [place] 00 3 (three) Medical times Branch daily. ofloxacin 2020-0 Yes [id number] 5[drp] Place 5 [facility] 0.3 % otic 9-17 [id number] Drops in ity of drops 00:00: both ears [place] 00 3 (three) Medical times Branch daily. ofloxacin 2020-0 Yes [id number] 5[drp] Place 5 [facility] 0.3 % otic 9-17 [id number] Drops in ity of drops 00:00: both ears [place] 00 3 (three) Medical times Branch daily. ofloxacin 2020-0 Yes [id number] 5[drp] Place 5 [facility] 0.3 % otic 9-17 [id number] Drops in ity of drops 00:00: both ears [place] 00 3 (three) Medical times Branch daily. ofloxacin 2020-0 Yes [id number] 5[drp] Place 5 [facility] 0.3 % otic 9-17 [id number] Drops in ity of drops 00:00: both ears [place] 00 3 (three) Medical times Branch daily. ofloxacin 2020-0 Yes [id number] 5[drp] Place 5 [facility] 0.3 % otic 9-17 [id number] Drops in ity of drops 00:00: both ears [place] 00 3 (three) Medical times Branch daily. ofloxacin 2020-0 Yes [id number] 5[drp] Place 5 [facility] 0.3 % otic 9-17 [id number] Drops in ity of drops 00:00: both ears [place] 00 3 (three) Medical times Branch daily. ofloxacin 2020-0 Yes [id number] 5[drp] Place 5 [facility] 0.3 % otic 9-17 [id number] Drops in ity of drops 00:00: both ears [place] 00 3 (three) Medical times Branch daily. acetaminoph 2019- 2020- No 4647 1{tbl} Take 1 U nivers en-codeine 05-17 09-25 tablet by ity of (TYLENOL-CO 00:00: 04:59 [place] DE[place] #3[place] 00 :00 every 4 Medical 300-30 mg (four) Branch tablet hours as needed for Pain (scale 7-10) for up to 7 days. Indication s: acute pain acetaminoph 2020- 2020- No 4647 1{tbl} Take 1 [facility] n[facility] en-codeine 9-17 09-25 tablet by ity of (TYLENOL-CO 00:00: 04:59 [place] DE[place] #3) 00 :00 every 4 Medical 300-30 mg (four) Branch tablet hours as needed for Pain (scale 7-10) for up to 7 days. Indication s: acute pain acetaminoph 0 2020- No 4647 1{tbl} Take 1 [facility] nivers en-codeine 05-17 tablet by it[facility] of (TYLENOL-CO 00:00: 04:59 mouth [place] DE[place] #3) 00 :00 every 4 Medical 300-30 mg (four) Branch tablet hours as needed for Pain (scale 7-10) for up to 7 days. Indication s: acute pain metoprolol 2020-0 Yes [id number] 50mg Take 1 Un nneka succinate 7-09 tablet by ity o f XL 50 mg 24 00:00: mouth [place] hr tablet 00 daily. Medical Branch hydroCHLORO 2020-0 Yes [id number] 25mg Take 1 [facility] thiazide 25 7-09 tablet by ity of mg tablet 00:00: mouth [place] 00 daily. Medical Branch baclofen 10 2019-0 Yes [id number] 10mg Take 1 [facility] mg tablet 03-08 [id number] tablet by ity of 00:00: mouth 3 [place] 00 (three) Medical times Branch daily as needed for Pain (scale 4-6). metoprolol 2020-0 Yes [id number] 50mg Take 1 Un nneka succinate 7-09 tablet by ity o f XL 50 mg 24 00:00: mouth [place] hr tablet 00 daily. Medical Branch hydroCHLORO 2020-0 Yes [id number] 25mg Take 1 [facility] thiazide 25 7-09 tablet by ity of mg tablet 00:00: mouth [place] 00 daily. Medical Branch baclofen 10 2019-0 Yes [id number] 10mg Take 1 [facility] mg tablet 03-08 [id number] tablet by ity of 00:00: mouth 3 [place] 00 (three) Medical times Branch daily as needed for Pain (scale 4-6). metoprolol 2020-0 Yes [id number] 50mg Take 1 Un nneka succinate 7-09 tablet by ity o f XL 50 mg 24 00:00: mouth [place] hr tablet 00 daily. Medical Branch hydroCHLORO 2020-0 Yes [id number] 25mg Take 1 [facility] thiazide 25 7-09 tablet by ity of mg tablet 00:00: mouth [place] 00 daily. Medical Branch baclofen 10 2020-0 Yes [id number] 10mg Take 1 [facility] mg tablet 7- [id number] tablet by ity of 00:00: mouth 3 [place] 00 (three) Medical times Branch daily as needed for Pain (scale 4-6). metoprolol 2020-0 Yes [id number] 50mg Take 1 Un nneka succinate 7-09 tablet by ity o f XL 50 mg 24 00:00: mouth [place] hr tablet 00 daily. Medical Branch hydroCHLORO 2020-0 Yes [id number] 25mg Take 1 [facility] thiazide 25 7-09 tablet by ity of mg tablet 00:00: mouth [place] 00 daily. Medical Branch baclofen 10 2020-0 Yes [id number] 10mg Take 1 [facility] mg tablet 7 [id number] tablet by ity of 00:00: mouth 3 [place] 00 (three) Medical times Branch daily as needed for Pain (scale 4-6). metoprolol 2020-0 Yes [id number] 50mg Take 1 Un nenka succinate 7-09 tablet by ity o f XL 50 mg 24 00:00: mouth [place] hr tablet 00 daily. Medical Branch hydroCHLORO 2020-0 Yes [id number] 25mg Take 1 [facility] thiazide 25 7-09 tablet by ity of mg tablet 00:00: mouth [place] 00 daily. Medical Branch baclofen 10 2020-0 Yes [id number] 10mg Take 1 [facility] mg tablet 03-08 [id number] tablet by ity of 00:00: mouth 3 [place] 00 (three) Medical times Branch daily as needed for Pain (scale 4-6). metoprolol 2020-0 Yes [id number] 50mg Take 1 Un nneka succinate 7-09 tablet by ity o f XL 50 mg 24 00:00: mouth [place] hr tablet 00 daily. Medical Branch hydroCHLORO 2020-0 Yes [id number] 25mg Take 1 [facility] thiazide 25 7-09 tablet by ity of mg tablet 00:00: mouth [place] 00 daily. Medical Branch baclofen 10 2020-0 Yes [id number] 10mg Take 1 [facility] mg tablet 7- [id number] tablet by ity of 00:00: mouth 3 [place] 00 (three) Medical times Branch daily as needed for Pain (scale 4-6). metoprolol 2020-0 Yes [id number] 50mg Take 1 Un nneka succinate 7-09 tablet by ity o f XL 50 mg 24 00:00: mouth [place] hr tablet 00 daily. Medical Branch hydroCHLORO 2020-0 Yes [id number] 25mg Take 1 [facility] thiazide 25 7-09 tablet by ity of mg tablet 00:00: mouth [place] 00 daily. Medical Branch baclofen 10 2020-0 Yes [id number] 10mg Take 1 [facility] mg tablet 03-08 [id number] tablet by ity of 00:00: mouth 3 [place] 00 (three) Medical times Branch daily as needed for Pain (scale 4-6). metoprolol 2020-0 Yes [id number] 50mg Take 1 Un nneka succinate 7-09 tablet by ity o f XL 50 mg 24 00:00: mouth [place] hr tablet 00 daily. Medical Branch hydroCHLORO 2020-0 Yes [id number] 25mg Take 1 [facility] thiazide 25 7-09 tablet by ity of mg tablet 00:00: mouth [place] 00 daily. Medical Branch baclofen 10 2019-0 Yes [id number] 10mg Take 1 [facility] mg tablet 03-08 [id number] tablet by ity of 00:00: mouth 3 [place] 00 (three) Medical times Branch daily as needed for Pain (scale 4-6). metoprolol 2020-0 Yes [id number] 50mg Take 1 Un nneka succinate 7-09 tablet by ity o f XL 50 mg 24 00:00: mouth [place] hr tablet 00 daily. Medical Branch hydroCHLORO 2019-0 Yes [id number] 25mg Take 1 [facility] thiazide 25 7-09 tablet by ity of mg tablet 00:00: mouth [place] 00 daily. Medical Branch baclofen 10 2019-0 Yes [id number] 10mg Take 1 [facility] mg tablet 03-08 [id number] tablet by ity of 00:00: mouth 3 [place] 00 (three) Medical times Branch daily as needed for Pain (scale 4-6). metoprolol 2020-0 Yes [id number] 50mg Take 1 Un nneka succinate 7-09 tablet by ity o f XL 50 mg 24 00:00: mouth [place] hr tablet 00 daily. Medical Branch hydroCHLORO 2020-0 Yes [id number] 25mg Take 1 [facility] thiazide 25 7-09 tablet by ity of mg tablet 00:00: mouth [place] 00 daily. Medical Branch baclofen 10 2019-0 Yes [id number] 10mg Take 1 [facility] mg tablet 7- [id number] tablet by ity of 00:00: mouth 3 [place] 00 (three) Medical times Branch daily as needed for Pain (scale 4-6). metoprolol 2020-0 Yes [id number] 50mg Take 1 Un nneka succinate 7-09 tablet by ity o f XL 50 mg 24 00:00: mouth [place] hr tablet 00 daily. Medical Branch hydroCHLORO 2020-0 Yes [id number] 25mg Take 1 [facility] thiazide 25 7-09 tablet by ity of mg tablet 00:00: mouth [place] 00 daily. Medical Branch baclofen 10 2020-0 Yes [id number] 10mg Take 1 [facility] mg tablet 7- [id number] tablet by ity of 00:00: mouth 3 [place] 00 (three) Medical times Branch daily as needed for Pain (scale 4-6). metoprolol 2020-0 Yes [id number] 50mg Take 1 Un nneka succinate 7-09 tablet by ity o f XL 50 mg 24 00:00: mouth [place] hr tablet 00 daily. Medical Branch hydroCHLORO 2020-0 Yes [id number] 25mg Take 1 [facility] thiazide 25 7-09 tablet by ity of mg tablet 00:00: mouth [place] 00 daily. Medical Branch baclofen 10 2020-0 Yes [id number] 10mg Take 1 [facility] mg tablet 03-08 [id number] tablet by ity of 00:00: mouth 3 [place] 00 (three) Medical times Branch daily as needed for Pain (scale 4-6). metoprolol 2020-0 Yes [id number] 50mg Take 1 Un nneka succinate 7-09 tablet by ity o f XL 50 mg 24 00:00: mouth [place] hr tablet 00 daily. Medical Branch hydroCHLORO 2020-0 Yes [id number] 25mg Take 1 [facility] thiazide 25 7-09 tablet by ity of mg tablet 00:00: mouth [place] 00 daily. Medical Branch baclofen 10 2020-0 Yes [id number] 10mg Take 1 [facility] mg tablet 03-08 [id number] tablet by ity of 00:00: mouth 3 [place] 00 (three) Medical times Branch daily as needed for Pain (scale 4-6). metoprolol 2020-0 Yes [id number] 50mg Take 1 Un nneka succinate 7-09 tablet by ity o f XL 50 mg 24 00:00: mouth [place] hr tablet 00 daily. Medical Branch hydroCHLORO 2020-0 Yes [id number] 25mg Take 1 [facility] thiazide 25 7-09 tablet by ity of mg tablet 00:00: mouth [place] 00 daily. Medical Branch baclofen 10 2020-0 Yes [id number] 10mg Take 1 [facility] mg tablet 7- [id number] tablet by ity of 00:00: mouth 3 [place] 00 (three) Medical times Branch daily as needed for Pain (scale 4-6). metoprolol 2020-0 Yes [id number] 50mg Take 1 Un nneka succinate 7-09 tablet by ity o f XL 50 mg 24 00:00: mouth [place] hr tablet 00 daily. Medical Branch hydroCHLORO 2020-0 Yes [id number] 25mg Take 1 [facility] thiazide 25 7-09 tablet by ity of mg tablet 00:00: mouth [place] 00 daily. Medical Branch baclofen 10 2020-0 Yes [id number] 10mg Take 1 [facility] mg tablet 7- [id number] tablet by ity of 00:00: mouth 3 [place] 00 (three) Medical times Branch daily as needed for Pain (scale 4-6). metoprolol 2020-0 Yes [id number] 50mg Take 1 Un nneka succinate 7-09 tablet by ity o f XL 50 mg 24 00:00: mouth [place] hr tablet 00 daily. Medical Branch hydroCHLORO 2020-0 Yes [id number] 25mg Take 1 [facility] thiazide 25 7-09 tablet by ity of mg tablet 00:00: mouth [place] 00 daily. Medical Branch baclofen 10 2019-0 Yes [id number] 10mg Take 1 [facility] mg tablet 7 [id number] tablet by ity of 00:00: mouth 3 [place] 00 (three) Medical times Branch daily as needed for Pain (scale 4-6). metoprolol 2020-0 Yes [id number] 50mg Take 1 Un nneka succinate 7-09 tablet by ity o f XL 50 mg 24 00:00: mouth [place] hr tablet 00 daily. Medical Branch hydroCHLORO 2020-0 Yes [id number] 25mg Take 1 [facility] thiazide 25 7-09 tablet by ity of mg tablet 00:00: mouth [place] 00 daily. Medical Branch baclofen 10 2020-0 Yes [id number] 10mg Take 1 [facility] mg tablet 7- [id number] tablet by ity of 00:00: mouth 3 [place] 00 (three) Medical times Branch daily as needed for Pain (scale 4-6). metoprolol 2020-0 Yes [id number] 50mg Take 1 Un nneka succinate 7-09 tablet by ity o f XL 50 mg 24 00:00: mouth [place] hr tablet 00 daily. Medical Branch hydroCHLORO 2020-0 Yes [id number] 25mg Take 1 [facility] thiazide 25 7-09 tablet by ity of mg tablet 00:00: mouth [place] 00 daily. Medical Branch baclofen 10 2020-0 Yes [id number] 10mg Take 1 [facility] mg tablet 7 [id number] tablet by ity of 00:00: mouth 3 [place] 00 (three) Medical times Branch daily as needed for Pain (scale 4-6). metoprolol 2020-0 Yes [id number] 50mg Take 1 Un nneka succinate 7-09 tablet by ity o f XL 50 mg 24 00:00: mouth [place] hr tablet 00 daily. Medical Branch hydroCHLORO 2020-0 Yes [id number] 25mg Take 1 [facility] thiazide 25 7-09 tablet by ity of mg tablet 00:00: mouth [place] 00 daily. Medical Branch baclofen 10 2019-0 Yes [id number] 10mg Take 1 [facility] mg tablet 03-08 [id number] tablet by ity of 00:00: mouth 3 [place] 00 (three) Medical times Branch daily as needed for Pain (scale 4-6). metoprolol 2020-0 Yes [id number] 50mg Take 1 Un nneka succinate 7-09 tablet by ity o f XL 50 mg 24 00:00: mouth [place] hr tablet 00 daily. Medical Branch hydroCHLORO 2020-0 Yes [id number] 25mg Take 1 [facility] thiazide 25 7-09 tablet by ity of mg tablet 00:00: mouth [place] 00 daily. Medical Branch baclofen 10 2020-0 Yes [id number] 10mg Take 1 [facility] mg tablet 03-08 [id number] tablet by ity of 00:00: mouth 3 [place] 00 (three) Medical times Branch daily as needed for Pain (scale 4-6). metoprolol 2020-0 Yes [id number] 50mg Take 1 Un nneka succinate 7-09 tablet by ity o f XL 50 mg 24 00:00: mouth [place] hr tablet 00 daily. Medical Branch hydroCHLORO 2020-0 Yes [id number] 25mg Take 1 [facility] thiazide 25 7-09 tablet by ity of mg tablet 00:00: mouth [place] 00 daily. Medical Branch baclofen 10 2020-0 Yes [id number] 10mg Take 1 [facility] mg tablet 7- [id number] tablet by ity of 00:00: mouth 3 [place] 00 (three) Medical times Branch daily as needed for Pain (scale 4-6). metoprolol 2020-0 Yes [id number] 50mg Take 1 Un nneka succinate 7-09 tablet by ity o f XL 50 mg 24 00:00: mouth [place] hr tablet 00 daily. Medical Branch hydroCHLORO 2020-0 Yes [id number] 25mg Take 1 [facility] thiazide 25 7-09 tablet by ity of mg tablet 00:00: mouth [place] 00 daily. Medical Branch baclofen 10 2020-0 Yes [id number] 10mg Take 1 [facility] mg tablet - [id number] tablet by ity of 00:00: mouth 3 [place] 00 (three) Medical times Branch daily as needed for Pain (scale 4-6). metoprolol 2020-0 Yes [id number] 50mg Take 1 Un nenka succinate 7-09 tablet by ity o f XL 50 mg 24 00:00: mouth [place] hr tablet 00 daily. Medical Branch hydroCHLORO 2020-0 Yes [id number] 25mg Take 1 [facility] thiazide 25 7-09 tablet by ity of mg tablet 00:00: mouth [place] 00 daily. Medical Branch baclofen 10 2020-0 Yes [id number] 10mg Take 1 [facility] mg tablet 03-08 [id number] tablet by ity of 00:00: mouth 3 [place] 00 (three) Medical times Branch daily as needed for Pain (scale 4-6). metoprolol 2020-0 Yes [id number] 50mg Take 1 Un nneka succinate 7-09 tablet by ity o f XL 50 mg 24 00:00: mouth [place] hr tablet 00 daily. Medical Branch hydroCHLORO 2020-0 Yes [id number] 25mg Take 1 [facility] thiazide 25 7-09 tablet by ity of mg tablet 00:00: mouth [place] 00 daily. Medical Branch baclofen 10 2020-0 Yes [id number] 10mg Take 1 [facility] mg tablet 03-08 [id number] tablet by ity of 00:00: mouth 3 [place] 00 (three) Medical times Branch daily as needed for Pain (scale 4-6). metoprolol 2020-0 Yes [id number] 50mg Take 1 Un nneka succinate 7-09 tablet by ity o f XL 50 mg 24 00:00: mouth [place] hr tablet 00 daily. Medical Branch hydroCHLORO 2020-0 Yes [id number] 25mg Take 1 [facility] thiazide 25 03-08 tablet by ity of mg tablet 00:00: mouth [place] 00 daily. Medical Branch baclofen 10 2020-0 Yes [id number] 10mg Take 1 [facility] mg tablet 03-08 [id number] tablet by ity of 00:00: mouth 3 [place] 00 (three) Medical times Branch daily as needed for Pain (scale 4-6). DULOXETINE 2020-0 Yes 60mg Take 60 mg U nivers HCL 2-25 by mouth 3 ity of (CYMBALTA 14:58: (three) [place] ORAL) 32 times Medical daily. Branch VITAMIN B 2020-0 Yes Take by Unive rs COMPLEX 2-25 mouth. ity of ORAL 14:58: [place] [address] Medical Branch traZODONE 2020-0 Yes 100mg Take 100 [facility] vers 100 mg 2-25 mg by ity of tablet 14:58: mouth at [place] [address] bedtime. Medical Branch benztropine 2020-0 Yes 1mg Take 1 mg U nivers 1 mg tablet 2-25 by mouth ity of 14:58: daily. [place] [address] Medical Branch DULOXETINE 2020-0 Yes 60mg Take 60 mg U nivers HCL 2-25 by mouth 3 ity of (CYMBALTA 14:58: (three) [place] ORAL) 32 times Medical daily. Branch VITAMIN B 2020-0 Yes Take by Unive rs COMPLEX 2-25 mouth. ity of ORAL 14:58: [place] [address] Medical Branch traZODONE 2020-0 Yes 100mg Take 100 [facility] vers 100 mg 2-25 mg by ity of tablet 14:58: mouth at [place] [address] bedtime. Medical Branch benztropine 2020-0 Yes 1mg Take 1 mg U nivers 1 mg tablet 2-25 by mouth ity of 14:58: daily. [place] [address] Medical Branch DULOXETINE 2020-0 Yes 60mg Take 60 mg U nivers HCL 2-25 by mouth 3 ity of (CYMBALTA 14:58: (three) [place] ORAL) 32 times Medical daily. Branch VITAMIN B 2020-0 Yes Take by Unive rs COMPLEX 2-25 mouth. ity of ORAL 14:58: [place] [address] Medical Branch traZODONE 2020-0 Yes 100mg Take 100 [facility] vers 100 mg 2-25 mg by ity of tablet 14:58: mouth at [place] 32 bedtime. Medical Branch benztropine 2020-0 Yes 1mg Take 1 mg U nivers 1 mg tablet 2-25 by mouth ity of 14:58: daily. [place] [address] Medical Branch DULOXETINE 2020-0 Yes 60mg Take 60 mg U nivers HCL 2-25 by mouth 3 ity of (CYMBALTA 14:58: (three) [place] ORAL) 32 times Medical daily. Branch VITAMIN B 2020-0 Yes Take by Unive rs COMPLEX 2-25 mouth. ity of ORAL 14:58: [place] [address] Medical Branch traZODONE 2020-0 Yes 100mg Take 100 [facility] vers 100 mg 2-25 mg by ity of tablet 14:58: mouth at [place] [address] bedtime. Medical Branch benztropine 2020-0 Yes 1mg Take 1 mg U nivers 1 mg tablet 2-25 by mouth ity of 14:58: daily. [place] [address] Medical Branch DULOXETINE 2020-0 Yes 60mg Take 60 mg U nivers HCL 2-25 by mouth 3 ity of (CYMBALTA 14:58: (three) [place] ORAL) 32 times Medical daily. Branch VITAMIN B 2020-0 Yes Take by Unive rs COMPLEX 2-25 mouth. ity of ORAL 14:58: [place] [address] Medical Branch traZODONE 2020-0 Yes 100mg Take 100 [facility] vers 100 mg 2-25 mg by ity of tablet 14:58: mouth at [place] [address] bedtime. Medical Branch benztropine 2020-0 Yes 1mg Take 1 mg U nivers 1 mg tablet 2-25 by mouth ity of 14:58: daily. [place] [address] Medical Branch DULOXETINE 2020-0 Yes 60mg Take 60 mg U nivers HCL 2-25 by mouth 3 ity of (CYMBALTA 14:58: (three) [place] ORAL) 32 times Medical daily. Branch VITAMIN B 2020-0 Yes Take by Unive rs COMPLEX 2-25 mouth. ity of ORAL 14:58: [place] [address] Medical Branch traZODONE 2020-0 Yes 100mg Take 100 [facility] vers 100 mg 2-25 mg by ity of tablet 14:58: mouth at [place] [address] bedtime. Medical Branch benztropine 2020-0 Yes 1mg Take 1 mg U nivers 1 mg tablet 2-25 by mouth ity of 14:58: daily. [place] [address] Medical Branch DULOXETINE 2020-0 Yes 60mg Take 60 mg U nivers HCL 2-25 by mouth 3 ity of (CYMBALTA 14:58: (three) [place] ORAL) 32 times Medical daily. Branch VITAMIN B 2020-0 Yes Take by Unive rs COMPLEX 2-25 mouth. ity of ORAL 14:58: [place] [address] Medical Branch traZODONE 2020-0 Yes 100mg Take 100 [facility] vers 100 mg 2-25 mg by ity of tablet 14:58: mouth at [place] [address] bedtime. Medical Branch benztropine 2020-0 Yes 1mg Take 1 mg U nivers 1 mg tablet 2-25 by mouth ity of 14:58: daily. [place] [address] Medical Branch DULOXETINE 2020-0 Yes 60mg Take 60 mg U nivers HCL 2-25 by mouth 3 ity of (CYMBALTA 14:58: (three) [place] ORAL) 32 times Medical daily. Branch VITAMIN B 2020-0 Yes Take by Un[facility] rs COMPLEX 2-25 mouth. ity of ORAL 14:58: [place] [address] Medical Branch traZODONE 2020-0 Yes 100mg Take 100 [facility] vers 100 mg 2-25 mg by ity of tablet 14:58: mouth at [place] [address] bedtime. Medical Branch benztropine 2020-0 Yes 1mg Take 1 mg U nivers 1 mg tablet 2-25 by mouth ity of 14:58: daily. [place] [address] Medical Branch DULOXETINE 2020-0 Yes 60mg Take 60 mg U nivers HCL 2-25 by mouth 3 ity of (CYMBALTA 14:58: (three) [place] ORAL) 32 times Medical daily. Branch VITAMIN B 2020-0 Yes Take by Unive rs COMPLEX 2-25 mouth. ity of ORAL 14:58: [place] [address] Medical Branch traZODONE 2020-0 Yes 100mg Take 100 [facility] vers 100 mg 2-25 mg by ity of tablet 14:58: mouth at [place] [address] bedtime. Medical Branch benztropine 2020-0 Yes 1mg Take 1 mg U nivers 1 mg tablet 2-25 by mouth ity of 14:58: daily. [place] [address] Medical Branch DULOXETINE 2020-0 Yes 60mg Take [...] of tablet 14:58: mouth at [place] [address] bedtime. Medical Branch benztropine 2020-0 Yes 1mg Take 1 mg [facility] nivers 1 mg tablet 2-25 by mouth ity of 14:58: daily. [place] [address] Medical Branch DULOXETINE 2020-0 Yes 60mg Take 60 mg U nivers HCL 2-25 by mouth 3 ity of (CYMBALTA 14:58: (three) [place] ORAL) 32 times Medical daily. Branch VITAMIN B 2020-0 Yes Take by Un[facility] rs COMPLEX 2-25 mouth. ity of ORAL 14:58: [place] [address] Medical Branch traZODONE 2020-0 Yes 100mg Take 100 [facility] vers 100 mg 2-25 mg by ity of tablet 14:58: mouth at [place] [address] bedtime. Medical Branch benztropine 2020-0 Yes 1mg Take 1 mg U nivers 1 mg tablet 2-25 by mouth ity of 14:58: daily. [place] [address] Medical Branch DULOXETINE 2020-0 Yes 60mg Take 60 mg U nivers HCL 2-25 by mouth 3 ity of (CYMBALTA 14:58: (three) [place] ORAL) 32 times Medical daily. Branch VITAMIN B 2020-0 Yes Take by Unive rs COMPLEX 2-25 mouth. ity of ORAL 14:58: [place] [address] Medical Branch traZODONE 2020-0 Yes 100mg Take 100 [facility] vers 100 mg 2-25 mg by ity of tablet 14:58: mouth at [place] [address] bedtime. Medical Branch benztropine 2020-0 Yes 1mg Take 1 mg U nivers 1 mg tablet 2-25 by mouth ity of 14:58: daily. [place] [address] Medical Branch DULOXETINE 2020-0 Yes 60mg Take 60 mg U nivers HCL 2-25 by mouth 3 ity of (CYMBALTA 14:58: (three) [place] ORAL) 32 times Medical daily. Branch VITAMIN B 2020-0 Yes Take by Un[facility] rs COMPLEX 2-25 mouth. ity of ORAL 14:58: [place] [address] Medical Branch traZODONE 2020-0 Yes 100mg Take 100 [facility] vers 100 mg 2-25 mg by ity of tablet 14:58: mouth at [place] [address] bedtime. Medical Branch benztropine 2020-0 Yes 1mg Take 1 mg [facility] nivers 1 mg tablet 2-25 by mouth ity of 14:58: daily. [place] [address] Medical Branch DULOXETINE 2020-0 Yes 60mg Take 60 mg U nivers HCL 2-25 by mouth 3 ity of (CYMBALTA 14:58: (three) [place] ORAL) 32 times Medical daily. Branch VITAMIN B 2020-0 Yes Take by Un[facility] rs COMPLEX 2-25 mouth. ity of ORAL 14:58: [place] [address] Medical Branch traZODONE 2020-0 Yes 100mg Take 100 [facility] vers 100 mg 2-25 mg by ity of tablet 14:58: mouth at [place] [address] bedtime. Medical Branch benztropine 2020-0 Yes 1mg Take 1 mg [facility] nivers 1 mg tablet 2-25 by mouth ity of 14:58: daily. [place] [address] Medical Branch DULOXETINE 2020-0 Yes 60mg Take 60 mg U nivers HCL 2-25 by mouth 3 ity of (CYMBALTA 14:58: (three) [place] ORAL) 32 times Medical daily. Branch VITAMIN B 2020-0 Yes Take by Un[facility] rs COMPLEX 2-25 mouth. ity of ORAL 14:58: [place] [address] Medical Branch traZODONE 2020-0 Yes 100mg Take 100 [facility] vers 100 mg 2-25 mg by ity of tablet 14:58: mouth at [place] [address] bedtime. Medical Branch benztropine 2020-0 Yes 1mg Take 1 mg [facility] nivers 1 mg tablet 2-25 by mouth ity of 14:58: daily. [place] [address] Medical Branch DULOXETINE 2020-0 Yes 60mg Take 60 mg U nivers HCL 2-25 by mouth 3 ity of (CYMBALTA 14:58: (three) [place] ORAL) 32 times Medical daily. Branch VITAMIN B 2020-0 Yes Take by Un[facility] rs COMPLEX 2-25 mouth. ity of ORAL 14:58: [place] [address] Medical Branch traZODONE 2020-0 Yes 100mg Take 100 [facility] vers 100 mg 2-25 mg by ity of tablet 14:58: mouth at [place] [address] bedtime. Medical Branch benztropine 2020-0 Yes 1mg Take 1 mg U nivers 1 mg tablet 2-25 by mouth ity of 14:58: daily. [place] [address] Medical Branch DULOXETINE 2020-0 Yes 60mg Take 60 mg U nivers HCL 2-25 by mouth 3 ity of (CYMBALTA 14:58: (three) [place] ORAL) 32 times Medical daily. Branch VITAMIN B 2020-0 Yes Take by Unive rs COMPLEX 2-25 mouth. ity of ORAL 14:58: [address] traZODONE 2020-0 Yes 100mg Take 100 Uni vers 100 mg 2-25 mg by ity of tablet 14:58: mouth at [place] [address] bedtime. Medical Branch benztropine 2020-0 Yes 1mg Take 1 mg U nivers 1 mg tablet 2-25 by mouth ity of 14:58: daily. [address] VITAMIN B 2020-0 Yes Take by Unive rs COMPLEX 2-25 mouth. ity of ORAL 14:58: [address] traZODONE 2020-0 Yes 100mg Take 100 Uni vers 100 mg 2-25 mg by ity of tablet 14:58: mouth at [place] [address] bedtime. Medical Branch benztropine 2020-0 Yes 1mg Take 1 mg U nivers 1 mg tablet 2-25 by mouth ity of 14:58: daily. [address] VITAMIN B 2020-0 Yes Take by Unive rs COMPLEX 2-25 mouth. ity of ORAL 14:58: [address] traZODONE 2020-0 Yes 100mg Take 100 Uni vers 100 mg 2-25 mg by ity of tablet 14:58: mouth at [place] [address] bedtime. Medical Branch benztropine 2020-0 Yes 1mg Take 1 mg U nivers 1 mg tablet 2-25 by mouth ity of 14:58: daily. [address] VITAMIN B 2020-0 Yes Take by Unive rs COMPLEX 2-25 mouth. ity of ORAL 14:58: [address] traZODONE 2020-0 Yes 100mg Take 100 Uni vers 100 mg 2-25 mg by ity of tablet 14:58: mouth at [place] [address] bedtime. Medical Branch benztropine 2020-0 Yes 1mg Take 1 mg U nivers 1 mg tablet 2-25 by mouth ity of 14:58: daily. [address] VITAMIN B 2020-0 Yes Take by Unive rs COMPLEX 2-25 mouth. ity of ORAL 14:58: [address] traZODONE 2020-0 Yes 100mg Take 100 Uni vers 100 mg 2-25 mg by ity of tablet 14:58: mouth at [place] [address] bedtime. Medical Branch benztropine 2020-0 Yes 1mg Take 1 mg U nivers 1 mg tablet 2-25 by mouth ity of 14:58: daily. [address] VITAMIN B 2020-0 Yes Take by Unive rs COMPLEX 2-25 mouth. ity of ORAL 14:58: [address] traZODONE 2020-0 Yes 100mg Take 100 Uni vers 100 mg 2-25 mg by ity of tablet 14:58: mouth at [place] [address] bedtime. Medical Branch benztropine 2020-0 Yes 1mg Take 1 mg U nivers 1 mg tablet 2-25 by mouth ity of 14:58: daily. [address] VITAMIN B 2020-0 Yes Take by Unive rs COMPLEX 2-25 mouth. ity of ORAL 14:58: [address] traZODONE 2020-0 Yes 100mg Take 100 Uni vers 100 mg 2-25 mg by ity of tablet 14:58: mouth at [address] Medical Branch benztropine 2020-0 Yes 1mg Take 1 mg U nivers 1 mg tablet 2-25 by mouth ity of 14:58: daily. [address] VITAMIN B 2020-0 Yes Take by Unive rs COMPLEX 2-25 mouth. ity of ORAL 14:58: [address] traZODONE 2020-0 Yes 100mg Take 100 Uni vers 100 mg 2-25 mg by ity of tablet 14:58: mouth at [place] [address] [facility] benztropine 2020-0 Yes 1mg Take 1 mg U nivers 1 mg tablet 2-25 by mouth ity of 14:58: daily. [address] VITAMIN B 2020-0 Yes Take by Unive rs COMPLEX 2-25 mouth. ity of ORAL 14:58: [address] traZODONE 2020-0 Yes 100mg Take 100 Uni vers 100 mg 2-25 mg by ity of tablet 14:58: mouth at [place] [address] bedtime. Medical Branch benztropine 2020-0 Yes 1mg Take 1 mg [facility] nivers 1 mg tablet 2-25 by mouth ity of 14:58: daily. [address] VITAMIN B 2020-0 Yes Take by Unive rs COMPLEX 2-25 mouth. ity of ORAL 14:58: [address] traZODONE 2020-0 Yes 100mg Take 100 Uni vers 100 mg 2-25 mg by ity of tablet 14:58: mouth at [place] [address] bedtime. Medical Branch benztropine 2020-0 Yes 1mg Take 1 mg [facility] nivers 1 mg tablet 2-25 by mouth ity of 14:58: daily. [address] VITAMIN B 2020-0 Yes Take by Unive rs COMPLEX 2-25 mouth. ity of ORAL 14:58: [address] traZODONE 2020-0 Yes 100mg Take 100 Uni vers 100 mg 2-25 mg by ity of tablet 14:58: mouth at [place] [address] bedtime. Medical Branch benztropine 2020-0 Yes 1mg Take 1 mg [facility] nivers 1 mg tablet 2-25 by mouth ity of 14:58: daily. [address] VITAMIN B 2020-0 Yes Take by Unive rs COMPLEX 2-25 mouth. ity of ORAL 14:58: [address] traZODONE 2020-0 Yes 100mg Take 100 Uni vers 100 mg 2-25 mg by ity of tablet 14:58: mouth at [place] [address] bedtime. Medical Branch benztropine 2020-0 Yes 1mg Take 1 mg [facility] nivers 1 mg tablet 2-25 by mouth ity of 14:58: daily. [address] VITAMIN B 2020-0 Yes Take by Unive rs COMPLEX 2-25 mouth. ity of ORAL 14:58: [address] traZODONE 2020-0 Yes 100mg Take 100 Uni vers 100 mg 2-25 mg by ity of tablet 14:58: mouth at [place] [address] bedtime. Medical Branch benztropine 2020-0 Yes 1mg Take 1 mg [facility] nivers 1 mg tablet 2-25 by mouth ity of 14:58: daily. [address] VITAMIN B 2020-0 Yes Take by Unive rs COMPLEX 2-25 mouth. ity of ORAL 14:58: [address] traZODONE 2020-0 Yes 100mg Take 100 Uni vers 100 mg 2-25 mg by ity of tablet 14:58: mouth at [place] [address] bedtime. Medical Branch benztropine 2020-0 Yes 1mg Take 1 mg [facility] nivers 1 mg tablet 2-25 by mouth ity of 14:58: daily. [address] VITAMIN B 2020-0 Yes Take by Unive rs COMPLEX 2-25 mouth. ity of ORAL 14:58: [place] 32 [facility] traZODONE 2020-0 Yes 100mg Take 100 Uni vers 100 mg 2-25 mg by ity of tablet 14:58: mouth at [place] [address] bedtime. Medical Branch benztropine 2020-0 Yes 1mg Take 1 mg [facility] nivers 1 mg tablet 2-25 by mouth ity of 14:58: daily. [address] Branch VITAMIN B 2020-0 Yes Take by Unive rs COMPLEX 2-25 mouth. ity of ORAL 14:58: [place] [address] Medical Branch traZODONE 2020-0 Yes 100mg Take 100 Uni vers 100 mg 2-25 mg by ity of tablet 14:58: mouth at [place] [address] bedtime. Medical Branch benztropine 2020-0 Yes 1mg Take 1 mg [facility] nivers 1 mg tablet 2-25 by mouth ity of 14:58: daily. [address] Branch aripiprazol 2020-0 Yes 5mg Take [...] 2-24 by mouth ity of 17:16: daily. [place] 05 [facility] Branch ARIPiprazol 2020-0 Yes 10mg [...] 2-24 by mouth ity of 17:16: daily. [place] 05 [facility] ARIPiprazol 2020-0 Yes 10mg Take 10 mg [facility] e 10 mg 2-24 by mouth 2 ity of tablet 17:16: (two) [place] 05 times Medical daily. Branch DULOXETINE 2020-0 [...] by ity of tablet 17:15: mouth at [place] [address] bedtime. Medical Branch DULOXETINE 2020-0 Yes 60mg Take 60 mg U nivers HCL 2-24 by mouth 3 ity of (CYMBALTA 17:15: (three) [place] ORAL) 45 times Medical daily. Branch VITAMIN B 2020-0 Yes Take by Unive rs COMPLEX 2-24 mouth. ity of ORAL 17:15: [place] 45 [facility] Branch traZODONE 2020-0 Yes 100mg Take 100 Uni vers 100 mg 2-24 mg by ity of tablet 17:15: mouth at [place] 45 bedtime. Medical Branch DULOXETINE 2020-0 Yes 60mg Take 60 mg U nivers HCL 2-24 by mouth 3 ity of (CYMBALTA 17:15: (three) [place] ORAL) 45 times Medical daily. Branch VITAMIN B 2020-0 Yes Take by Unive rs COMPLEX 2-24 mouth. ity of ORAL 17:15: [place] 45 [facility] Branch traZODONE 2019-0 Yes 100mg Take 100 Uni vers 100 mg 2-24 mg by ity of tablet 17:15: mouth at [place] [address] bedtime. Medical Branch OLANZapine 0 2020- No 20mg Take 20 mg [facility] 20 mg -24 10-24 by mouth ity of tablet 17:15: 00:00 at [place] 35 :00 bedtime. Medical Branch OLANZapine 2019- 2020- No 20mg Take 20 mg [facility] 20 mg 2-24 10-24 by mouth ity of tablet 17:15: 00:00 at [place] 35 :00 bedtime. Medical Branch OLANZapine 2019- 2020- No 20mg Take 20 mg [facility] 20 mg -24 10-24 by mouth ity of tablet 17:15: 00:00 at [place] 35 :00 bedtime. Medical Branch OLANZapine 2020- No 10mg Take 10 mg [facility] (ZYPREXA) -24 10-24 by mouth 2 ity of 10 mg 17:15: 00:00 (two) [place] tablet 26 :00 times Medical daily. Branch OLANZapine 2020- No 10mg Take 10 mg [facility] (ZYPREXA) 2-24 10-24 by mouth 2 ity of 10 mg 17:15: 00:00 (two) [place] tablet 26 :00 times Medical daily. Branch OLANZapine 0 2020- No 10mg Take 10 mg [facility] (ZYPREXA) -24 10-24 by mouth 2 ity of 10 mg 17:15: 00:00 (two) [place] tablet 26 :00 times Medical daily. Branch DULoxetine 2020- No Take 3 Univ ers 30 mg 2-24 -24 capsules ity of capsule 17:15: 00:00 by mouth [place] 09 :00 daily. Medical Branch DULoxetine 2019-0 2020- No Take 3 Univ ers 30 mg 2-24 02-24 capsules ity of capsule 17:15: 00:00 by mouth [place] 09 :00 daily. Medical Branch DULoxetine 2019-0 2020- No Take 3 Univ ers 30 mg 2-24 -24 capsules ity of capsule 17:15: 00:00 by mouth [place] 09 :00 daily. Medical Branch metoprolol 2019- Yes [id number] 50mg Take 1 Un nneka succinate 2-24 tablet by ity o f XL 50 mg 24 00:00: mouth [place] hr tablet 00 daily. Medical Branch metoprolol 2020-0 Yes [id number] 50mg Take 1 Un nneka succinate 2-24 tablet by ity o f XL 50 mg 24 00:00: mouth [place] hr tablet 00 daily. Medical Branch metoprolol 2020-0 Yes [id number] 50mg Take 1 Un nneka succinate 2-24 tablet by ity o f XL 50 mg 24 00:00: mouth [place] hr tablet 00 daily. Medical Branch metoprolol 2020-0 Yes [id number] 50mg Take 1 Un nneka succinate 2-24 tablet by ity o f XL 50 mg 24 00:00: mouth [place] hr tablet 00 daily. Medical Branch metoprolol 2020-0 Yes [id number] 50mg Take 1 Un nneka succinate 2-24 tablet by ity o f XL 50 mg 24 00:00: mouth [place] hr tablet 00 daily. Medical Branch metoprolol 2020-0 Yes [id number] 50mg Take 1 Un nneka succinate 2-24 tablet by ity o f XL 50 mg 24 00:00: mouth [place] hr tablet 00 daily. Medical Branch metoprolol 2020-0 Yes [id number] 50mg Take 1 Un nneka succinate 2-24 tablet by ity o f XL 50 mg 24 00:00: mouth [place] hr tablet 00 daily. Medical Branch metoprolol 2020-0 Yes [id number] 50mg Take 1 Un nneka succinate 2-24 tablet by ity o f XL 50 mg 24 00:00: mouth [place] hr tablet 00 daily. Medical Branch metoprolol 2020-0 Yes [id number] 50mg Take 1 Un nneka succinate 2-24 tablet by ity o f XL 50 mg 24 00:00: mouth [place] hr tablet 00 daily. Medical Branch metoprolol 2020-0 Yes [id number] 50mg Take 1 Un nneka succinate 2-24 tablet by ity o f XL 50 mg 24 00:00: mouth [place] hr tablet 00 daily. [facility] metoprolol 2020-0 2020- No [id number] 50mg Take 1 U nivers succinate 2-24 - tablet by ity of XL 50 mg 24 00:00: 00:00 [place] hr tablet 00 :00 daily. [facility] metoprolol 2020-0 2020- No [id number] 50mg Take 1 U nivers succinate 2-24 - tablet by ity of XL 50 mg 24 00:00: 00:00 [place] hr tablet 00 :00 daily. [facility] metoprolol 2019-0 2020- No [id number] 50mg Take 1 U nivers succinate 2-24 - tablet by ity of XL 50 mg 24 00:00: 00:00 mouth [place] hr tablet 00 :00 daily. [facility] metoprolol 2019-0 2020- No [id number] 50mg Take 1 U nivers succinate 2-23 03- tablet by ity of XL 50 mg 24 00:00: 00:00 mouth [place] hr tablet 00 :00 daily. [facility] hydroCHLORO 2020-0 Yes [id number] 25mg Take 1 [facility] thiazide 25 1-30 tablet by ity of mg tablet 00:00: mouth [place] 00 daily. Medical Branch meloxicam 2020-0 Yes [id number] 15mg Take 1 U nivers 15 mg 1-30 tablet by ity of tablet 00:00: mouth [place] 00 daily. Medical Branch metoprolol 2020-0 Yes [id number] 25mg Take 1 Un nneka succinate 1-30 tablet by ity o f XL 25 mg 24 00:00: mouth [place] hr tablet 00 daily. Medical Branch pregabalin 2020-0 Yes [id number] 150mg Take 1 [facility] (LYRICA) 1-30 capsule by ity o f 150 mg 00:00: mouth 2 [place] capsule 00 (two) Medical times Branch daily. hydroCHLORO 2020-0 Yes [id number] 25mg Take 1 [facility] thiazide 25 1-30 tablet by ity of mg tablet 00:00: mouth [place] 00 daily. Medical Branch meloxicam 2020-0 Yes [id number] 15mg Take 1 U nivers 15 mg 1-30 tablet by ity of tablet 00:00: mouth [place] 00 daily. Medical Branch metoprolol 2020-0 Yes [id number] 25mg Take 1 Un nneka succinate 1-30 tablet by ity o f XL 25 mg 24 00:00: mouth [place] hr tablet 00 daily. Medical Branch pregabalin 2020-0 Yes [id number] 150mg Take 1 [facility] (LYRICA) 1-30 capsule by ity o f 150 mg 00:00: mouth 2 [place] capsule 00 (two) Medical times Branch daily. hydroCHLORO 2020-0 Yes [id number] 25mg Take 1 [facility] thiazide 25 1-30 tablet by ity of mg tablet 00:00: mouth [place] 00 daily. Medical Branch meloxicam 2020-0 Yes [id number] 15mg Take 1 U nivers 15 mg 1-30 tablet by ity of tablet 00:00: mouth [place] 00 daily. Medical Branch pregabalin 2020-0 Yes [id number] 150mg Take 1 [facility] (LYRICA) 1-30 capsule by ity o f 150 mg 00:00: mouth 2 [place] capsule 00 (two) Medical times Branch daily. hydroCHLORO 2020-0 Yes [id number] 25mg Take 1 [facility] thiazide 25 1-30 tablet by ity of mg tablet 00:00: mouth [place] 00 daily. Medical Branch meloxicam 2020-0 Yes [id number] 15mg Take 1 U nivers 15 mg 1-30 tablet by ity of tablet 00:00: mouth [place] 00 daily. Medical Branch pregabalin 2020-0 Yes [id number] 150mg Take 1 [facility] (LYRICA) 1-30 capsule by ity o f 150 mg 00:00: mouth 2 [place] capsule 00 (two) Medical times Branch daily. hydroCHLORO 2020-0 Yes [id number] 25mg Take 1 [facility] thiazide 25 1-30 tablet by ity of mg tablet 00:00: mouth [place] 00 daily. Medical Branch meloxicam 2020-0 Yes [id number] 15mg Take 1 U nivers 15 mg 1-30 tablet by ity of tablet 00:00: mouth [place] 00 daily. Medical Branch pregabalin 2020-0 Yes [id number] 150mg Take 1 [facility] (LYRICA) 1-30 capsule by ity o f 150 mg 00:00: mouth 2 [place] capsule 00 (two) Medical times Branch daily. hydroCHLORO 2020-0 Yes [id number] 25mg Take 1 [facility] thiazide 25 1-30 tablet by ity of mg tablet 00:00: mouth [place] 00 daily. Medical Branch meloxicam 2020-0 Yes [id number] 15mg Take 1 U nivers 15 mg 1-30 tablet by ity of tablet 00:00: mouth [place] 00 daily. Medical Branch pregabalin 2020-0 Yes [id number] 150mg Take 1 [facility] (LYRICA) 1-30 capsule by ity o f 150 mg 00:00: mouth 2 [place] capsule 00 (two) Medical times Branch daily. hydroCHLORO 2020-0 Yes [id number] 25mg Take 1 [facility] thiazide 25 1-30 tablet by ity of mg tablet 00:00: mouth [place] 00 daily. Medical Branch meloxicam 2020-0 Yes [id number] 15mg Take 1 U nivers 15 mg 1-30 tablet by ity of tablet 00:00: mouth [place] 00 daily. Medical Branch pregabalin 2020-0 Yes [id number] 150mg Take 1 [facility] (LYRICA) 1-30 capsule by ity o f 150 mg 00:00: mouth 2 [place] capsule 00 (two) Medical times Branch daily. hydroCHLORO 2020-0 Yes [id number] 25mg Take 1 [facility] thiazide 25 1-30 tablet by ity of mg tablet 00:00: mouth [place] 00 daily. Medical Branch meloxicam 2020-0 Yes [id number] 15mg Take 1 U nivers 15 mg 1-30 tablet by ity of tablet 00:00: mouth [place] 00 daily. Medical Branch pregabalin 2020-0 Yes [id number] 150mg Take 1 [facility] (LYRICA) 1-30 capsule by ity o f 150 mg 00:00: mouth 2 [place] capsule 00 (two) Medical times Branch daily. hydroCHLORO 2020-0 Yes [id number] 25mg Take 1 [facility] thiazide 25 1-30 tablet by ity of mg tablet 00:00: mouth [place] 00 daily. Medical Branch meloxicam 2020-0 Yes [id number] 15mg Take 1 U nivers 15 mg 1-30 tablet by ity of tablet 00:00: mouth [place] 00 daily. Medical Branch pregabalin 2020-0 Yes [id number] 150mg Take 1 [facility] (LYRICA) 1-30 capsule by ity o f 150 mg 00:00: mouth 2 [place] capsule 00 (two) Medical times Branch daily. hydroCHLORO 2020-0 Yes [id number] 25mg Take 1 [facility] thiazide 25 1-30 tablet by ity of mg tablet 00:00: mouth [place] 00 daily. Medical Branch meloxicam 2020-0 Yes [id number] 15mg Take 1 U nivers 15 mg 1-30 tablet by ity of tablet 00:00: mouth [place] 00 daily. Medical Branch pregabalin 2020-0 Yes [id number] 150mg Take 1 [facility] (LYRICA) 1-30 capsule by ity o f 150 mg 00:00: mouth 2 [place] capsule 00 (two) Medical times Branch daily. hydroCHLORO 2020-0 Yes [id number] 25mg Take 1 [facility] thiazide 25 1-30 tablet by ity of mg tablet 00:00: mouth [place] 00 daily. Medical Branch meloxicam 2020-0 Yes [id number] 15mg Take 1 U nivers 15 mg 1-30 tablet by ity of tablet 00:00: mouth [place] 00 daily. Medical Branch pregabalin 2020-0 Yes [id number] 150mg Take 1 [facility] (LYRICA) 1-30 capsule by ity o f 150 mg 00:00: mouth 2 [place] capsule 00 (two) Medical times Branch daily. hydroCHLORO 2020-0 Yes [id number] 25mg Take 1 [facility] thiazide 25 1-30 tablet by ity of mg tablet 00:00: mouth [place] 00 daily. Medical Branch meloxicam 2020-0 Yes [id number] 15mg Take 1 U nivers 15 mg 1-30 tablet by ity of tablet 00:00: mouth [place] 00 daily. Medical Branch pregabalin 2020-0 Yes [id number] 150mg Take 1 [facility] (LYRICA) 1-30 capsule by ity o f 150 mg 00:00: mouth 2 [place] capsule 00 (two) Medical times Branch daily. meloxicam 2020-0 Yes [id number] 15mg Take 1 U nivers 15 mg 1-30 tablet by ity of tablet 00:00: mouth [place] 00 daily. Medical Branch pregabalin 2020-0 Yes [id number] 150mg Take 1 [facility] (LYRICA) 1-30 capsule by ity o f 150 mg 00:00: mouth 2 [place] capsule 00 (two) Medical times Branch daily. meloxicam 2020-0 Yes [id number] 15mg Take 1 U nivers 15 mg 1-30 tablet by ity of tablet 00:00: mouth [place] 00 daily. Medical Branch pregabalin 2020-0 Yes [id number] 150mg Take 1 [facility] (LYRICA) 1-30 capsule by ity o f 150 mg 00:00: mouth 2 [place] capsule 00 (two) Medical times Branch daily. meloxicam 2020-0 Yes [id number] 15mg Take 1 U nivers 15 mg 1-30 tablet by ity of tablet 00:00: mouth [place] 00 daily. Medical Branch pregabalin 2020-0 Yes [id number] 150mg Take 1 [facility] (LYRICA) 1-30 capsule by ity o f 150 mg 00:00: mouth 2 [place] capsule 00 (two) Medical times Branch daily. meloxicam 2020-0 Yes [id number] 15mg Take 1 U nivers 15 mg 1-30 tablet by ity of tablet 00:00: mouth [place] 00 daily. Medical Branch pregabalin 2020-0 Yes [id number] 150mg Take 1 [facility] (LYRICA) 1-30 capsule by ity o f 150 mg 00:00: mouth 2 [place] capsule 00 (two) Medical times Branch daily. meloxicam 2020-0 Yes [id number] 15mg Take 1 U nivers 15 mg 1-30 tablet by ity of tablet 00:00: mouth [place] 00 daily. Medical Branch pregabalin 2020-0 Yes [id number] 150mg Take 1 [facility] (LYRICA) 1-30 capsule by ity o f 150 mg 00:00: mouth 2 [place] capsule 00 (two) Medical times Branch daily. meloxicam 2020-0 Yes [id number] 15mg Take 1 U nivers 15 mg 1-30 tablet by ity of tablet 00:00: mouth [place] 00 daily. Medical Branch pregabalin 2020-0 Yes [id number] 150mg Take 1 [facility] (LYRICA) 1-30 capsule by ity o f 150 mg 00:00: mouth 2 [place] capsule 00 (two) Medical times Branch daily. meloxicam 2020-0 Yes [id number] 15mg Take 1 U nivers 15 mg 1-30 tablet by ity of tablet 00:00: mouth [place] 00 daily. Medical Branch pregabalin 2020-0 Yes [id number] 150mg Take 1 [facility] (LYRICA) 1-30 capsule by ity o f 150 mg 00:00: mouth 2 [place] capsule 00 (two) Medical times Branch daily. meloxicam 2020-0 Yes [id number] 15mg Take 1 U nivers 15 mg 1-30 tablet by ity of tablet 00:00: mouth [place] 00 daily. Medical Branch pregabalin 2020-0 Yes [id number] 150mg Take 1 [facility] (LYRICA) 1-30 capsule by ity o f 150 mg 00:00: mouth 2 [place] capsule 00 (two) Medical times Branch daily. meloxicam 2020-0 Yes [id number] 15mg Take 1 U nivers 15 mg 1-30 tablet by ity of tablet 00:00: mouth [place] 00 daily. Medical Branch pregabalin 2020-0 Yes [id number] 150mg Take 1 [facility] (LYRICA) 1-30 capsule by ity o f 150 mg 00:00: mouth 2 [place] capsule 00 (two) Medical times Branch daily. meloxicam 2020-0 Yes [id number] 15mg Take 1 U nivers 15 mg 1-30 tablet by ity of tablet 00:00: mouth [place] 00 daily. Medical Branch pregabalin 2020-0 Yes [id number] 150mg Take 1 [facility] (LYRICA) 1-30 capsule by ity o f 150 mg 00:00: mouth 2 [place] capsule 00 (two) Medical times Branch daily. meloxicam 2020-0 Yes [id number] 15mg Take 1 U nivers 15 mg 1-30 tablet by ity of tablet 00:00: mouth [place] 00 daily. Medical Branch pregabalin 2020-0 Yes [id number] 150mg Take 1 [facility] (LYRICA) 1-30 capsule by ity o f 150 mg 00:00: mouth 2 [place] capsule 00 (two) Medical times Branch daily. meloxicam 2020-0 Yes [id number] 15mg Take 1 U nivers 15 mg 1-30 tablet by ity of tablet 00:00: mouth [place] 00 daily. Medical Branch pregabalin 2020-0 Yes [id number] 150mg Take 1 [facility] (LYRICA) 1-30 capsule by ity o f 150 mg 00:00: mouth 2 [place] capsule 00 (two) Medical times Branch daily. meloxicam 2020-0 Yes [id number] 15mg Take 1 U nivers 15 mg 1-30 tablet by ity of tablet 00:00: mouth [place] 00 daily. Medical Branch pregabalin 2020-0 Yes [id number] 150mg Take 1 [facility] (LYRICA) 1-30 capsule by ity o f 150 mg 00:00: mouth 2 [place] capsule 00 (two) Medical times Branch daily. meloxicam 2020-0 Yes [id number] 15mg Take 1 U nivers 15 mg 1-30 tablet by ity of tablet 00:00: mouth [place] 00 daily. Medical Branch pregabalin 2020-0 Yes [id number] 150mg Take 1 [facility] (LYRICA) 1-30 capsule by ity o f 150 mg 00:00: mouth 2 [place] capsule 00 (two) Medical times Branch daily. meloxicam 2020-0 Yes [id number] 15mg Take 1 U nivers 15 mg 1-30 tablet by ity of tablet 00:00: mouth [place] 00 daily. Medical Branch pregabalin 2020-0 Yes [id number] 150mg Take 1 [facility] (LYRICA) 1-30 capsule by ity o f 150 mg 00:00: mouth 2 [place] capsule 00 (two) Medical times Branch daily. meloxicam 2020-0 Yes [id number] 15mg Take 1 U nivers 15 mg 1-30 tablet by ity of tablet 00:00: mouth [place] 00 daily. Medical [facility] pregabalin 2020-0 Yes [id number] 150mg Take 1 [facility] (LYRICA) 1-30 capsule by ity o f 150 mg 00:00: mouth 2 [place] capsule 00 (two) Medical times Branch daily. meloxicam 2020-0 Yes [id number] 15mg Take 1 U nivers 15 mg 1-30 tablet by ity of tablet 00:00: mouth [place] 00 daily. [facility] pregabalin 2020-0 Yes [id number] 150mg Take 1 [facility] (LYRICA) 1-30 capsule by ity o f 150 mg 00:00: mouth 2 [place] capsule 00 (two) Medical times Branch daily. meloxicam 2020-0 Yes [id number] 15mg Take 1 U nivers 15 mg 1-30 tablet by ity of tablet 00:00: mouth [place] 00 daily. Medical Branch meloxicam 2020-0 Yes [id number] 15mg Take 1 U nivers 15 mg 1-30 tablet by ity of tablet 00:00: mouth [place] 00 daily. [facility] Branch meloxicam 2020-0 Yes [id number] 15mg Take 1 U nivers 15 mg 1-30 tablet by ity of tablet 00:00: mouth [place] 00 daily. [facility] Branch meloxicam 2020-0 Yes [id number] 15mg Take 1 U nivers 15 mg 1-30 tablet by ity of tablet 00:00: mouth [place] 00 daily. Medical Branch meloxicam 2020-0 Yes [id number] 15mg Take 1 U nivers 15 mg 1-30 tablet by ity of tablet 00:00: mouth [place] 00 daily. [facility] Branch meloxicam 2020-0 Yes [id number] 15mg Take 1 U nivers 15 mg 1-30 tablet by ity of tablet 00:00: mouth [place] 00 daily. [facility] Branch meloxicam 2019-0 Yes [id number] 15mg Take 1 U nivers 15 mg 1-30 tablet by ity of tablet 00:00: mouth [place] 00 daily. [facility] Branch meloxicam 2019-0 Yes [id number] 15mg Take 1 U nivers 15 mg 1-30 tablet by ity of tablet 00:00: mouth [place] 00 daily. [facility] Branch pregabalin 2019-2019- No [id number] 150mg Take 1 [facility] (LYRICA) 1-30 12-21 capsule by ity of 150 mg 00:00: 00:00 mouth 2 [place] capsule 00 :00 (two) Medical times Branch daily. hydroCHLORO 2019- 2020- No [id number] 25mg Take 1 [facility] thiazide 25 -30 -09 tablet by it y of mg tablet 00:00: 00:00 mouth [place] 00 :00 daily. Medical Branch hydroCHLORO 2019-2019- No [id number] 25mg Take 1 [facility] thiazide 25 09-29-09 tablet by it y of mg tablet 00:00: 00:00 mouth [place] 00 :00 daily. [facility] Branch hydroCHLORO 2019-2019- No [id number] 25mg Take 1 [facility] thiazide 25 30 -09 tablet by it y of mg tablet 00:00: 00:00 mouth [place] 00 :00 daily. Medical Branch hydroCHLORO 2019- 2020- No [id number] 25mg Take 1 [facility] thiazide 25 -30 -09 tablet by it y of mg tablet 00:00: 00:00 mouth [place] 00 :00 daily. [facility] Branch metoprolol 2019- 2020- No [id number] 25mg Take 1 U nivers succinate -30 02-24 tablet by ity of XL 25 mg 24 00:00: 00:00 mouth [place] hr tablet 00 :00 daily. [facility] metoprolol 2019- 2020- No [id number] 25mg Take 1 U nivers succinate 1-30 02-24 tablet by ity of XL 25 mg 24 00:00: 00:00 mouth [place] hr tablet 00 :00 daily. [facility] metoprolol 2019- 2020- No [id number] 25mg Take 1 U nivers succinate -30 02-24 tablet by ity of XL 25 mg 24 00:00: 00:00 mouth [place] hr tablet 00 :00 daily. [facility] aripiprazol 2018-08 Yes 5mg Take 5 mg U nivers e (ABILIFY 2-17 by mouth 2 ity of ORAL) 15:02: (two) [place] 33 times Medical daily. Branch aripiprazol 2018-08 Yes 5mg Take 5 mg U nivers e (ABILIFY 2-17 by mouth 2 ity of ORAL) 15:02: (two) [place] 33 times Medical daily. Branch aripiprazol 2018-08 Yes 5mg Take 5 mg U nivers e (ABILIFY 2-17 by mouth 2 ity of ORAL) 15:02: (two) [place] 33 times Medical daily. Branch aripiprazol 2018-08 Yes 5mg Take 5 mg U nivers e (ABILIFY 2-17 by mouth 2 ity of ORAL) 15:02: (two) [place] 33 times Medical daily. Branch VITAMIN B 2018-08 Yes Take by Unive rs COMPLEX 0-31 mouth. ity of ORAL 17:11: [address] Branch traZODONE 2018-08 Yes 100mg Take 100 [facility] vers 100 mg 0-31 mg by ity of tablet 17:11: mouth at [place] [address] bedtime. Medical Branch VITAMIN B 2018-08 Yes Take by Unive rs COMPLEX 0-31 mouth. ity of ORAL 17:11: [address] Branch traZODONE 2018-08 Yes 100mg Take 100 Uni vers 100 mg 0-31 mg by ity of tablet 17:11: mouth at [place] [address] bedtime. Medical Branch VITAMIN B 2018-08 Yes Take by Unive rs COMPLEX 0-31 mouth. ity of ORAL 17:11: [address] Branch traZODONE 2018-08 Yes 100mg Take 100 Uni vers 100 mg 0-31 mg by ity of tablet 17:11: mouth at [place] [address] bedtime. Medical Branch VITAMIN B 2018-08 Yes Take by Unive rs COMPLEX 0-31 mouth. ity of ORAL 17:11: [address] traZODONE 2018-08 Yes 100mg Take 100 Uni vers 100 mg 0-31 mg by ity of tablet 17:11: mouth at [place] [address] bedtime. Medical Branch traZODONE Yes 100mg Take 100 Uni vers 100 mg 8-29 mg by ity of tablet 19:24: mouth at [place] [address] bedtime. Medical Branch traZODONE [id number] Yes 100mg Take 100 Uni vers 100 mg 8-29 mg by ity of tablet 19:24: mouth at [place] [address] bedtime. Medical Branch traZODONE [id number] Yes 100mg Take 100 Uni vers 100 mg 8-29 mg by ity of tablet 19:24: mouth at [place] [address] bedtime. Medical Branch traZODONE 0 Yes 100mg Take 100 Uni vers 100 mg 8-29 mg by ity of tablet 19:24: mouth at [place] [address] bedtime. Medical Branch traZODONE 0 Yes 100mg Take 100 Uni vers 100 mg 8-29 mg by ity of tablet 19:24: mouth at [place] [address] bedtime. Medical Branch traZODONE 0 Yes 100mg Take 100 Uni vers 100 mg 8-29 mg by ity of tablet 19:24: mouth at [place] [address] bedtime. Medical Branch benztropine Yes 1mg Take 1 mg U nivers 1 mg tablet 8-29 by mouth ity of 14:39: daily. [place] [facility] ARIPiprazol Yes 10mg Take [...] 8-29 by mouth ity of 14:39: daily. [place] [facility] ARIPiprazol 0 Yes 10mg [...] 8-29 by mouth ity of 14:39: daily. [place] [facility] ARIPiprazol Yes 10mg Take 10 [...] 8-29 by mouth ity of 14:39: daily. [place] [facility] ARIPiprazol Yes 10mg Take 10 [...] 8-29 by mouth ity of 14:39: daily. [place] [facility] ARIPiprazol Yes 10mg Take 10 [...] 21 times Medical daily. Branch metoprolol Yes [id number] 25mg Take 1 Un nneka succinate 8-29 tablet by ity o f XL 25 mg 24 00:00: mouth [place] hr tablet 00 daily. Medical Branch hydroCHLORO Yes [id number] 25mg Take 1 Univers thiazide 25 8-29 tablet by ity of mg tablet 00:00: mouth [place] 00 daily. Medical Branch meloxicam Yes [id number] 15mg Take 1 U nivers 15 mg 8-29 tablet by ity of tablet 00:00: mouth [place] 00 daily. [facility] metoprolol Yes [id number] 25mg Take 1 Un nneka succinate 8-29 tablet by ity o f XL 25 mg 24 00:00: mouth [place] hr tablet 00 daily. [facility] hydroCHLORO Yes [id number] 25mg Take 1 Univers thiazide 25 8-29 tablet by ity of mg tablet 00:00: mouth [place] 00 daily. [facility] meloxicam Yes [id number] 15mg Take 1 U nivers 15 mg 8-29 tablet by ity of tablet 00:00: mouth [place] 00 daily. Medical [facility] metoprolol 2019-0 Yes [id number] 25mg Take 1 Un nneka succinate 8-29 tablet by ity o f XL 25 mg 24 00:00: mouth [place] hr tablet 00 daily. [facility] hydroCHLORO 2018-0 Yes [id number] 25mg Take 1 Univers thiazide 25 8-29 tablet by ity of mg tablet 00:00: mouth [place] 00 daily. Medical [facility] meloxicam Yes [id number] 15mg Take 1 U nivers 15 mg 8-29 tablet by ity of tablet 00:00: mouth [place] 00 daily. [facility] metoprolol Yes [id number] 25mg Take 1 Un nneka succinate 8-29 tablet by ity o f XL 25 mg 24 00:00: mouth [place] hr tablet 00 daily. [facility] hydroCHLORO 0 Yes [id number] 25mg Take 1 Univers thiazide 25 8-29 tablet by ity of mg tablet 00:00: mouth [place] 00 daily. [facility] meloxicam Yes [id number] 15mg Take 1 U nivers 15 mg 8-29 tablet by ity of tablet 00:00: mouth [place] 00 daily. [facility] metoprolol Yes [id number] 25mg Take 1 Un nneka succinate 8-29 tablet by ity o f XL 25 mg 24 00:00: mouth [place] hr tablet 00 daily. [facility] hydroCHLORO 0 Yes [id number] 25mg Take 1 Univers thiazide 25 8-29 tablet by ity of mg tablet 00:00: mouth [place] 00 daily. [facility] meloxicam 0 Yes [id number] 15mg Take 1 U nivers 15 mg 8-29 tablet by ity of tablet 00:00: mouth [place] 00 daily. Medical Branch metoprolol 0 Yes [id number] 25mg Take 1 Un nneka succinate 8-29 tablet by ity o f XL 25 mg 24 00:00: mouth [place] hr tablet 00 daily. [facility] hydroCHLORO 0 Yes [id number] 25mg Take 1 Univers thiazide 25 8-29 tablet by ity of mg tablet 00:00: mouth [place] 00 daily. Medical [facility] meloxicam 0 Yes [id number] 15mg Take 1 U nivers 15 mg 8-29 tablet by ity of tablet 00:00: mouth [place] 00 daily. Medical [facility] metoprolol Yes [id number] 25mg Take 1 Un nneka succinate 8-29 tablet by ity o f XL 25 mg 24 00:00: mouth [place] hr tablet 00 daily. Medical Branch hydroCHLORO Yes [id number] 25mg Take 1 Univers thiazide 25 8-29 tablet by ity of mg tablet 00:00: mouth [place] 00 daily. Medical Branch meloxicam Yes [id number] 15mg Take 1 U nivers 15 mg 8-29 tablet by ity of tablet 00:00: mouth [place] 00 daily. [facility] Branch metoprolol 2020- No [id number] 25mg Take 1 U nivers succinate 8-28 09-30 tablet by ity of XL 25 mg 24 00:00: 00:00 [place] hr tablet 00 :00 daily. [facility] hydroCHLORO 2020- No [id number] 25mg Take 1 Univers thiazide 25 04-28-30 tablet by it y of mg tablet 00:00: 00:00 mouth [place] 00 :00 daily. [facility] Branch meloxicam 2020- No [id number] 15mg Take 1 Univers 15 mg 8-28 09-30 tablet by ity of tablet 00:00: 00:00 mouth [place] 00 :00 daily. [facility] Branch metoprolol 2020- No [id number] 25mg Take 1 U nivers succinate 8-28 09-30 tablet by ity of XL 25 mg 24 00:00: 00:00 [place] hr tablet 00 :00 daily. Medical [facility] hydroCHLORO 2020- No [id number] 25mg Take 1 Univers thiazide 25 04-2830 tablet by it y of mg tablet 00:00: 00:00 mouth [place] 00 :00 daily. [facility] Branch meloxicam 2020- No [id number] 15mg Take 1 Univers 15 mg 8-28 09-30 tablet by ity of tablet 00:00: 00:00 mouth [place] 00 :00 daily. Medical Branch Dose 2019-0 No Unknown 7- 00:00: 00 Dose 2019-0 No Unknown 7- 00:00: 00 Dose 2019-0 No Unknown 7- 00:00: 00 Dose 2019-0 No Unknown 7- 00:00: 00 Dose 2019-0 No Unknown 7- 00:00: 00 Dose 2018-0 No Unknown 7-30 00:00: 00 METOPROLOL 2019- No [id number] TAKE 1 U nivers SUCCINATE 7-06 07-29 TABLET BY ity of XL 25 mg 24 00:00: 00:00 MOUTH [place] hr tablet 00 :00 EVERY DAY Medic al Branch METOPROLOL 2019- No [id number] TAKE 1 U nivers SUCCINATE 7-10 -29 TABLET BY ity of XL 25 mg 24 00:00: 00:00 MOUTH [place] hr tablet 00 :00 EVERY DAY Medic al Branch hydroCHLORO 2019- No [id number] 25mg Take 1 Univers thiazide 25 5-30 -29 tablet by it y of mg tablet 00:00: 00:00 mouth [place] 00 :00 daily. Medical Branch meloxicam 2019- No [id number] 7.5mg Take 1 Univers (MOBIC) 7.5 -30 -29 tablet by it y of mg tablet 00:00: 00:00 mouth [place] 00 :00 daily. Medical Branch hydroCHLORO 2019- No [id number] 25mg Take 1 Univers thiazide 25 5-30 -29 tablet by it y of mg tablet 00:00: 00:00 mouth [place] 00 :00 daily. Medical Branch meloxicam 2019- No [id number] 7.5mg Take 1 Univers (MOBIC) 7.5 5-30 -29 tablet by it y of mg tablet 00:00: 00:00 mouth [place] 00 :00 daily. Medical Branch DULOXETINE 2018- Yes 60mg Take 60 mg U nivers HCL 4-23 by mouth 3 ity of (CYMBALTA 20:00: (three) [place] ORAL) 25 times Medical daily. Branch OLANZapine 2018- Yes 20mg Take 20 mg U nivers 20 mg 4-23 by mouth ity of tablet 20:00: at [place] 25 bedtime. Medical Branch aripiprazol 2018-0 Yes 5mg Take 5 mg U nivers e (ABILIFY 4-23 by mouth 2 ity of ORAL) 20:00: (two) [place] 25 times Medical daily. Branch DULOXETINE Yes 60mg Take 60 mg U nivers HCL 4-23 by mouth 3 ity of (CYMBALTA 20:00: (three) [place] ORAL) 25 times Medical daily. Branch OLANZapine 2019-0 Yes 20mg Take 20 mg U nivers 20 mg 4-23 by mouth ity of tablet 20:00: at [place] 25 bedtime. Medical Branch DULOXETINE 2019-0 Yes 60mg Take 60 mg U nivers HCL 4-23 by mouth 3 ity of (CYMBALTA 20:00: (three) [place] ORAL) 25 times Medical daily. Branch OLANZapine 2019-0 Yes 20mg Take 20 mg U nivers 20 mg 4-23 by mouth ity of tablet 20:00: at [place] 25 bedtime. Medical Branch DULOXETINE 2019-0 Yes 60mg Take 60 mg U nivers HCL 4-23 by mouth 3 ity of (CYMBALTA 20:00: (three) [place] ORAL) 25 times Medical daily. Branch OLANZapine 2019-0 Yes 20mg Take 20 mg U nivers 20 mg 4-23 by mouth ity of tablet 20:00: at [place] 25 bedtime. Medical Branch DULOXETINE 2019-0 Yes 60mg Take 60 mg U nivers HCL 4-23 by mouth 3 ity of (CYMBALTA 20:00: (three) [place] ORAL) 25 times Medical daily. Branch OLANZapine 2019-0 Yes 20mg Take 20 mg U nivers 20 mg 4-23 by mouth ity of tablet 20:00: at [place] 25 bedtime. Medical Branch DULOXETINE 2019-0 Yes 60mg Take 60 mg U nivers HCL 4-23 by mouth 3 ity of (CYMBALTA 20:00: (three) [place] ORAL) 25 times Medical daily. Branch OLANZapine 2019-0 Yes 20mg Take 20 mg U nivers 20 mg 4-23 by mouth ity of tablet 20:00: at [place] 25 bedtime. Medical Branch aripiprazol 2019-0 Yes [...] at [place] 25 bedtime. Medical Branch aripiprazol 2019-0 Yes [...] at [place] 25 bedtime. Medical Branch aripiprazol 2019-0 Yes [...] by mouth ity of tablet 20:00: at [place] 25 bedtime. Medical Branch aripiprazol 2019-0 Yes [...] by mouth ity of tablet 20:00: at [place] 25 bedtime. Medical Branch aripiprazol 2019-0 Yes 5mg Take 5 mg U nivers e (ABILIFY 4-23 by mouth 2 ity of ORAL) 20:00: (two) [place] 25 times Medical daily. Branch VITAMIN B 2019-0 Yes Take by Unive rs COMPLEX 3-28 mouth. ity of ORAL 16:11: [place] [address] Medical Branch VITAMIN B 2019-0 Yes Take by Unive rs COMPLEX 3-28 mouth. ity of ORAL 16:11: [place] [address] Medical Branch VITAMIN B 2019-0 Yes Take by Unive rs COMPLEX 3-28 mouth. ity of ORAL 16:11: [address] VITAMIN B Yes Take by Unive rs COMPLEX 3-28 mouth. ity of ORAL 16:11: [address] VITAMIN B Yes Take by Unive rs COMPLEX 3-28 mouth. ity of ORAL 16:11: [address] VITAMIN B Yes Take by Unive rs COMPLEX 3-28 mouth. ity of ORAL 16:11: [address] amlodipine 2019-0 No 1mg 5 mg tablet 2-19 00:00: 00 amlodipine 2018-0 No 1mg 5 mg tablet 2-19 00:00: 00 amlodipine 2019-0 No 1mg 5 mg tablet 2-19 00:00: 00 amlodipine 2018-1 No 1mg 10 mg 2-11 tablet 00:00: 00 amlodipine 2018 No 1mg 10 mg 2-11 tablet 00:00: 00 amlodipine 2018-1 No 1mg 10 mg 2-11 tablet 00:00: 00 amlodipine 2018-1 No 1mg 10 mg 0-15 tablet 00:00: 00 lisinopril 2017-1 No 1mg 10 0-15 mg-hydrochl 00:00: orothiazide [...] 8-15 tablet 00:00: 00 cyclobenzap 2018-0 Yes [id number] Bid prn Univers rine 10 mg 8-02 ity of tablet 00:00: [address] cyclobenzap 2018-0 Yes [id number] Bid prn Univers rine 10 mg 8-02 ity of tablet 00:00: [address] Branch cyclobenzap 2018-0 Yes [id number] Bid prn Univers rine 10 mg 8-02 ity of tablet 00:00: [address] Branch cyclobenzap 2018-0 Yes [id number] Bid prn Univers rine 10 mg 8-02 ity of tablet 00:00: [address] Branch cyclobenzap 2018-0 Yes [id number] Bid prn Univers rine 10 mg 8-02 ity of tablet 00:00: [address] cyclobenzap 2018-0 Yes [id number] Bid prn Univers rine 10 mg 8-02 ity of tablet 00:00: [address] cyclobenzap 2018-0 Yes [id number] Bid prn Univers rine 10 mg 8-02 ity of tablet 00:00: [address] cyclobenzap 2018-0 Yes [id number] Bid prn Univers rine 10 mg 8-02 ity of tablet 00:00: [place] 00 Medical Branch cyclobenzap 2018-0 Yes [id number] Bid prn Univers rine 10 mg 8- ity of tablet 00:00: [place] 00 Medical Branch cyclobenzap 2018-0 Yes [id number] Bid prn Univers rine 10 mg 8- ity of tablet 00:00: [place] 00 Medical Branch cyclobenzap 2018-0 2020- No [id number] Bid prn Univers rine 10 mg 04-01 ity of tablet 00:00: 00:00 [place] 00 :00 Medical Branch cyclobenzap 2018-0 2020- No [id number] Bid prn Univers rine 10 mg 04-01 ity of tablet 00:00: 00:00 [place] 00 :00 Medical Branch cyclobenzap 2018-0 2020- No [id number] Bid prn Univers rine 10 mg 04-01 ity of tablet 00:00: 00:00 [place] 00 :00 Medical Branch amlodipine 2018-0 No [...] 5-19 capsule 00:00: 00 DULoxetine 2016-0 Yes [id number] Reynold sey HCl 30 MG 3-16 Seybold oral 00:00: - Capsule 00 Externa Delayed l Release Sprinkle hydrOXYzine 2016-0 Yes [id number] Ke lsey HCl 25 MG 3-16 Seybold oral Tablet 00:00: - 00 Externa l DULoxetine 2016-0 Yes [id number] Reynold sey HCl 30 MG 3-16 Seybold oral 00:00: - Capsule 00 Externa Delayed l Release Sprinkle hydrOXYzine 2016-0 Yes [id number] Ke lsey HCl 25 MG 3-16 Seybold oral Tablet 00:00: - 00 Externa l DULoxetine 2016-0 Yes Jelena HCl 30 MG 3-16 Seybold oral 00:00: - Capsule 00 Externa Delayed l Release Sprinkle hydrOXYzine 2016-0 Yes Jelena HCl 25 MG 3-16 Seybold oral Tablet 00:00: - 00 Externa l DULoxetine 2016-0 Yes [id number] Reynold sey HCl 30 MG 3-16 Seybold oral 00:00: - Capsule 00 Externa Delayed l Release Sprinkle hydrOXYzine 2016-0 Yes [id number] Ke lsey HCl 25 MG 3-16 Seybold oral Tablet 00:00: - 00 Externa l DULoxetine 2016-0 Yes [id number] Reynold sey HCl 30 MG 3-16 Seybold oral 00:00: - Capsule 00 Externa Delayed l Release Sprinkle hydrOXYzine 2016-0 Yes [id number] Ke lsey HCl 25 MG 3-16 Seybold oral Tablet 00:00: - 00 Externa l DULoxetine 2016-0 Yes [id number] Reynold sey HCl 30 MG 3-16 [place]bold oral 00:00: - Capsule 00 Externa Delayed l Release Sprinkle hydrOXYzine 2015- Yes [id number] Ke lsey HCl 25 MG 3-16 Seybold oral Tablet 00:00: - 00 Externa l DULoxetine 2015-0 3- No [id number] Ke lsey HCl 30 MG 3-16 04-24 Seybold oral 00:00: 00:00 - Capsule 00 :00 Externa Delayed l Release Sprinkle hydrOXYzine 2015-3- No [id number] K elsey HCl 25 MG 3-16 04-24 Seybold oral Tablet 00:00: 00:00 - 00 :00 Externa l Immunizations Ordered Immunization Filled Immunization Date Status Commen ts Source Name Name Moderna COVID-19 2022-08-28 Completed Vaccine Bivalent 00:00:00 [...] l MODERNA COVID-19 BIVALENT 2022-08-28 Completed Jelena Ibrahim VACCINE MODERNA 00:00:00 - Externa l Moderna COVID-19 2021-10-19 Completed Vaccine 00:00:00 Moderna [...] Bradley Protein, Pf Pneumococcal Vaccine, 2019-04-29 Completed Reynold woodard Seybold Polysaccharide 00:00:00 - External Tdap- (Boostrix, 2019-04-29 Completed Jelena newman Adacel) 00:00:00 - External Pneumococcal Vaccine, 2019-04-29 Completed Reynold sey Seybold Polysaccharide 00:00:00 - External Tdap- (Boostrix, 2019-04-29 Completed Jelena S eybold Adacel) 00:00:00 - External Pneumococcal Vaccine, 2019-04-29 Completed Reynold sey Seybold Polysaccharide 00:00:00 - External Tdap- (Boostrix, 2019-04-29 Completed Jelena S eybold Adacel) 00:00:00 - External Pneumococcal Vaccine, 2019-04-29 Completed Reynold sey Seybold Polysaccharide 00:00:00 - External Tdap- (Boostrix, 2019-04-29 Completed Jelena S eybold Adacel) 00:00:00 - External Pneumococcal Vaccine, 2019-04-29 Completed Reynold sey Seybold Polysaccharide 00:00:00 - External Tdap- (Boostrix, 2019-04-29 Completed Jelena S eybold Adacel) 00:00:00 - External Pneumococcal Vaccine, 2019-04-29 Completed Reynold sey Seybold Polysaccharide 00:00:00 - External Tdap- (Boostrix, 2019-04-29 Completed Jelena S eybold Adacel) 00:00:00 - External Pneumococcal Vaccine, 2019-04-29 Completed Reynold sey Seybold Polysaccharide 00:00:00 - External Tdap- (Boostrix, 2019-04-29 Completed Jelena S eybold Adacel) 00:00:00 - External Pneumococcal Vaccine, 2019-04-29 Completed Reynold sey Seybold Polysaccharide 00:00:00 - External Tdap- (Boostrix, 2019-04-29 Completed Jelena S eybold Adacel) 00:00:00 - External Pneumococcal Vaccine, 2019-04-29 Completed Reynold sey Seybold Polysaccharide 00:00:00 - External Tdap- (Boostrix, 2019-04-29 Completed Jelena S eybold Adacel) 00:00:00 - External DTaP Unspecified 2009-04-17 Completed Jelena shahbold 00:00:00 - External Hepatitis A 2009-04-17 Completed Jelena Guevaraybol d 00:00:00 - External HPV 4 (Human 2009-04-17 Completed Jelena Ashley ld Papillomavirus) 00:00:00 - Externa l Pneumococcal Vaccine, 2009-04-17 Completed Reynold sey Seybold Conjugate 7 00:00:00 - External DTaP Unspecified 2009-04-17 Completed Jelena S eybold 00:00:00 - External Hepatitis A 2009-04-17 Completed Jelena Guevaraybol d 00:00:00 - External HPV 4 (Human 2009-04-17 Completed Jelena Seybo ld Papillomavirus) 00:00:00 - Externa l Pneumococcal Vaccine, 2009-04-17 Completed Reynold y Seybold Conjugate 7 00:00:00 - External DTaP Unspecified 2009-04-17 Completed Jelena S eybold 00:00:00 - External Hepatitis A 2009-04-17 Completed Jelena Guevaraybol d 00:00:00 - External HPV 4 (Human 2009-04-17 Completed Jelena Seybo ld Papillomavirus) 00:00:00 - Externa l Pneumococcal Vaccine, 2009-04-17 Completed Reynold guevaray Seybold Conjugate 7 00:00:00 - External DTaP Unspecified 2009-04-17 Completed Jelena S eybold 00:00:00 - External DTaP Unspecified 2009-04-17 Completed Jelena Umaña eybold 00:00:00 - External Hepatitis A 2009-04-17 Completed Jelena Guevaraybol d 00:00:00 - External Hepatitis A 2009-04-17 Completed Jelena Guevaraybol d 00:00:00 - External HPV 4 (Human 2009-04-17 Completed Jelena Seybo ld Papillomavirus) 00:00:00 - Externa l Pneumococcal Vaccine, 2009-04-17 Completed Reynold woodard Seybold Conjugate 7 00:00:00 - External DTaP Unspecified 2009-04-17 Completed Jelena Umaña eybold 00:00:00 - External Hepatitis A 2009-04-17 Completed Jelena Guevaraybol d 00:00:00 - External HPV 4 (Human 2009-04-17 Completed Jelena Seybo ld Papillomavirus) 00:00:00 - Externa l Pneumococcal Vaccine, 2009-04-17 Completed Reynold y Seybold Conjugate 7 00:00:00 - External HPV 4 (Human 2009-04-17 Completed Jelena Seybo ld Papillomavirus) 00:00:00 - Externa l DTaP Unspecified 2009-04-17 Completed Jelena S eybold 00:00:00 - External Hepatitis A 2009-04-17 Completed Jelena Seybol d 00:00:00 - External HPV 4 (Human 2009-04-17 Completed Jelena Seybo ld Papillomavirus) 00:00:00 - Externa l Pneumococcal Vaccine, 2009-04-17 Completed Reynold sey Seybold Conjugate 7 00:00:00 - External Pneumococcal Vaccine, 2009-04-17 Completed Reynold sey Seybold Conjugate 7 00:00:00 - External DTaP Unspecified 2009-04-17 Completed Jelena S eybold 00:00:00 - External Hepatitis A 2009-04-17 Completed Jelena Seybol d 00:00:00 - External HPV 4 (Human 2009-04-17 Completed Jelena Seybo ld Papillomavirus) 00:00:00 - Externa l Pneumococcal Vaccine, 2009-04-17 Completed Reynold sey Seybold Conjugate 7 00:00:00 - External DTaP Unspecified 2009-04-17 Completed Jelena S eybold 00:00:00 - External Hepatitis A 2009-04-17 Completed Jelena Seybol d 00:00:00 - External HPV 4 (Human 2009-04-17 Completed Jelena Seybo ld Papillomavirus) 00:00:00 - Externa l Pneumococcal Vaccine, 2009-04-17 Completed Reynold sey Seybold Conjugate 7 00:00:00 - External [...] Completed Jelena Seyb old Mcv4,unspecified 00:00:00 - General Contractor 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 Hepatitis A 2008-02-18 Completed Jelena Seybol d 00:00:00 - External HPV 4 (Human 2008-02-18 Completed Jelena Seybo ld Papillomavirus) 00:00:00 - Externa l Meningococcal 2008-02-18 Completed Jelena Seyb old Mcv4,unspecified 00:00:00 - General Contractor 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 Hepatitis A 2008-02-18 Completed Jelena Seybol d 00:00:00 - External HPV 4 (Human 2008-02-18 Completed Jelena Seybo ld Papillomavirus) 00:00:00 - Externa l Meningococcal 2008-02-18 Completed Jelena Seyb old Mcv4,unspecified 00:00:00 - General Contractor 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 Hepatitis A 2008-02-18 Completed Jelena Seybol d 00:00:00 - External Hepatitis A 2008-02-18 Completed Jelena Seybol d 00:00:00 - External HPV 4 (Human 2008-02-18 Completed Jelena Seybo ld Papillomavirus) 00:00:00 - Externa l Meningococcal 2008-02-18 Completed Jelena Seyb old Mcv4,unspecified 00:00:00 - General Contractor 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 Hepatitis A 2008-02-18 Completed Jelena Seybol d 00:00:00 - External HPV 4 (Human 2008-02-18 Completed Jelena Seybo ld Papillomavirus) 00:00:00 - Externa l Meningococcal 2008-02-18 Completed Jelena Seyb old Mcv4,unspecified 00:00:00 - General Contractor 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 HPV 4 (Human 2008-02-18 Completed Jelena Seybo ld Papillomavirus) 00:00:00 - Externa l Meningococcal 2008-02-18 Completed Jelena Seyb old Mcv4,unspecified 00:00:00 - General Contractor 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 Hepatitis A 2008-02-18 Completed Jelena Seybol d 00:00:00 - External HPV 4 (Human 2008-02-18 Completed Jelena Seybo ld Papillomavirus) 00:00:00 - Externa l Meningococcal 2008-02-18 Completed Jelena Seyb old Mcv4,unspecified 00:00:00 - General Contractor 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 Hepatitis A 2008-02-18 Completed Jelena Seybol d 00:00:00 - External HPV 4 (Human 2008-02-18 Completed Jelena Seybo ld Papillomavirus) 00:00:00 - Externa l Meningococcal 2008-02-18 Completed Jelena Seyb old Mcv4,unspecified 00:00:00 - General Contractor 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 Hepatitis A 2008-02-18 Completed Jelena Seybol d 00:00:00 - External HPV 4 (Human 2008-02-18 Completed Jelena Seybo ld Papillomavirus) 00:00:00 - Externa l Meningococcal 2008-02-18 Completed Jelena Seyb old Mcv4,unspecified 00:00:00 - General Contractor 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 Td (adult), 2 2006-05-25 Completed [...] - External HIB- Haemophilus 1997-05-31 Completed Jleena Umaña eybold Influenzae Type B 00:00:00 - [...] Vaccine 00:00:00 - External DTP- 1997-04-05 Completed Jleena Ibrahim Diphtheria,Tetanus,Pe 00:00:00 - E xternal rtussis [...] xternal rtussis HIB- Haemophilus 1996-08-05 Completed Jelena shahbold Influenzae Type B 00:00:00 - Exter nal DTP- 1996-08-05 Completed Jelena Ibrahim Diphtheria,Tetanus,Pe 00:00:00 - E xternal rtussis HIB- Haemophilus 1996-08-05 Completed Jelena shahbold Influenzae Type B 00:00:00 - Exter nal DTP- 1996-08-05 Completed Jelena Ibrahim Diphtheria,Tetanus,Pe 00:00:00 - E xternal rtussis DTP- 1996-08-05 Completed Jelena Ibrahim Diphtheria,Tetanus,Pe 00:00:00 - E xternal rtussis HIB- Haemophilus 1996-08-05 Completed Jelena shahbold Influenzae Type B 00:00:00 - Exter nal DTP1996-08-05 Completed Jelena Ibrahim Diphtheria,Tetanus,Pe 00:00:00 - E xternal rtussis HIB- Haemophilus 1996-08-05 Completed Jelena shahbold Influenzae Type B 00:00:00 - Exter nal HIB- Haemophilus 1996-08-05 Completed Jelena Umaña eybold Influenzae Type B 00:00:00 - Exter nal DTP- 1996-08-05 Completed Jelena Ibrahim Diphtheria,Tetanus,Pe 00:00:00 - E xternal rtussis HIB- Haemophilus 1996-08-05 Completed Jelena shahbold Influenzae Type B 00:00:00 [...] - Exter nal HIB- Haemophilus 1995-09-25 Completed Jleena S eybold Influenzae Type B 00:00:00 - [...] xternal rtussis Hepatitis B, 1993 Completed Jelena nloasco Unspecified 00:00:00 - External OPV- Oral Polio 1993 Completed Jelena Guevara ybold Vaccine 00:00:00 - External Hepatitis B, 1993 Completed Jelena nolasco Unspecified 00:00:00 - External DTP- 1993 Completed Jelean Ibrahim Diphtheria,Tetanus,Pe 00:00:00 [...] External OPV- Oral Polio 1993 Completed Jelena Se ybold Vaccine 00:00:00 - External DTP- 1993 [...] External OPV- Oral Polio 1993 Completed Jelena Se ybold Vaccine 00:00:00 - External HIB- Haemophilus [...] Exter nal Hepatitis B, 1993 Completed Jelena Seybo ld Unspecified 00:00:00 - External Hepatitis B, 1993 Completed Jelena Eatono ld Unspecified 00:00:00 - External Hepatitis B, 1993 Completed Jelena Guevaraybo ld Unspecified 00:00:00 - External Hepatitis B, [...] Time Observation Value Comments Source Systolic blood 2023-01-28 15:56:00 144 mm[Hg] Jelena Seybold - pressure External Diastolic blood 2023-01-28 15:56:00 92 mm[Hg] Reynold emmy Seybold - pressure External Heart rate 2023-01-28 15:56:00 80 /min Jelenalit shahbold - External Respiratory rate 2023-01-28 15:56:00 16 /min Ashlie shah Seybold - External Systolic blood 2022-12-29 14:50:00 149 mm[Hg] Jelena Seybold - pressure External Diastolic blood 2022-12-29 14:50:00 90 mm[Hg] Beth y Seybold - pressure External Heart rate 2022-12-29 14:50:00 78 /min Jelena Layne shahbold - External Body temperature 2022-12-29 14:50:00 37.39 Mera Ashlie ey Seybold - External Respiratory rate 2022-12-29 14:50:00 15 /min Ashlie ey Seybold - External Body height 2022-12-29 14:50:00 160 cm Jelena Layne shahbold - External Body weight 2022-12-29 14:50:00 130.182 kg Jelena Layne shahbold - External BMI 2022-12-29 14:50:00 50.84 kg/m2 Jelena Umaña eybold - External Systolic blood 2022-12-22 14:00:00 132 mm[Hg] Jelena Seybold - pressure External Diastolic blood 2022-12-22 14:00:00 96 mm[Hg] Beth y Seybold - pressure External [...] saturation in 2022-12-22 14:00:00 97 /min Jelena Guevaratiffanymarcel - Arterial blood by External Pulse oximetry [...] Body temperature 2022-10-28 15:06:00 36.56 Mera Ashlie shah Seybold - External Respiratory rate 2022-10-28 15:06:00 16 /min Ashlie shah Seybold - External Body height 2022-10-28 15:06:00 160 cm Jelena Umaña eybold - External Body weight 2022-10-28 15:06:00 124.739 kg Jelena Umaña eybold - External BMI 2022-10-28 15:06:00 48.71 kg/m2 Jelena S eybold - External Systolic blood 2022-10-10 14:33:00 152 mm[Hg] Jelena Seybold - pressure External Diastolic blood 2022-10-10 14:33:00 100 mm[Hg] Kelse y Seybold - pressure External Heart rate 2022-10-10 14:33:00 80 /min Jelena S eybold - External Body temperature 2022-10-10 14:33:00 36.17 Mera Ashlie ey Seybold - External Respiratory rate 2022-10-10 14:33:00 15 /min Ashlie ey Seybold - External Body height 2022-10-10 14:33:00 160 cm Jelena S eybold - External Body weight 2022-10-10 14:33:00 128.368 kg Jelena S eybold - External BMI 2022-10-10 14:33:00 50.13 [...] External Diastolic blood 2022-09-09 14:45:00 86 mm[Hg] Reynoldse y Seybold - pressure External Heart rate 2022-09-09 14:45:00 84 /min Jelena S eybold - External Body temperature 2022-09-09 14:45:00 36.78 Mera Ashlie Ibrahim - External Respiratory rate 2022-09-09 14:45:00 14 /min Ashlie Ibrahim - External Body height 2022-09-09 14:45:00 160 cm Jelena shahboconstance - External Body weight 2022-09-09 14:45:00 128.822 kg Jelena shahbold - External BMI 2022-09-09 14:45:00 50.31 kg/m2 Jelena shahboconstance - External Oxygen saturation in 2022-09-09 14:45:00 99 /min Jelena Ibrahim - Arterial blood by External Pulse oximetry Systolic blood 2020-09-07 15:09:00 126 mm[Hg] [facility] Diastolic blood 2020-09-07 15:09:00 88 mm[Hg] [facility]ive rs[facility] Heart rate 2020-09-07 15:09:00 76 /min [facility] Body height 2020-09-07 15:09:00 160 cm [facility] Body weight 2020-09-07 15:09:00 114.306 kg [facility] BMI 2020-09-07 15:09:00 44.64 kg/m2 [facility] Systolic blood 2020-09-07 15:09:00 126 mm[Hg] [facility] Diastolic blood 2020-09-07 15:09:00 88 mm[Hg] [facility]ive [facility] Heart rate 2020-09-07 15:09:00 76 /min [facility] Body height 2020-09-07 15:09:00 160 cm [facility] Body weight 2020-09-07 15:09:00 114.306 kg [facility] BMI 2020-09-07 15:09:00 44.64 kg/m2 [facility] Respiratory rate 2020-08-02 16:44:00 20 /min [facility] Body height 2020-08-02 16:44:00 160 cm [facility] Body weight 2020-08-02 16:44:00 114.352 kg [facility] BMI 2020-08-02 16:44:00 44.66 kg/m2 [facility] Systolic blood 2020-08-02 16:44:00 113 mm[Hg] [facility] Diastolic blood 2020-08-02 16:44:00 66 mm[Hg] [facility] Heart rate 2020-08-02 16:44:00 76 /min [facility] Body temperature 2020-08-02 16:44:00 36 Mera [facility] Systolic blood 2020-05-17 16:06:00 125 mm[Hg] [facility] Diastolic blood 2020-05-17 16:06:00 76 mm[Hg] [facility] Heart rate 2020-05-17 16:06:00 93 /min [facility] Body temperature 2020-05-17 16:06:00 36.44 Mera [facility] Respiratory rate 2020-05-17 16:06:00 18 /min [facility] Body height 2020-05-17 16:06:00 160 cm [facility] Body weight 2020-05-17 16:06:00 105.688 kg [facility] BMI 2020-05-17 16:06:00 41.27 kg/m2 [facility] Systolic blood 2020-03-08 15:04:00 108 mm[Hg] [facility] Diastolic blood 2020-03-08 15:04:00 69 mm[Hg] [facility] Heart rate 2020-03-08 15:04:00 74 /min [facility] Body temperature 2020-03-08 15:04:00 36.61 Mera [facility] Respiratory rate 2020-03-08 15:04:00 20 /min [facility] Body height 2020-03-08 15:04:00 160 cm [facility] Body weight 2020-03-08 15:04:00 112.583 kg [facility] BMI 2020-03-08 15:04:00 43.97 kg/m2 [facility] Systolic blood 2019-10-25 14:56:00 128 mm[Hg] [facility] Diastolic blood 2019-10-25 14:56:00 92 mm[Hg] [facility] Heart rate 2019-10-25 14:56:00 72 /min [facility] Body temperature 2019-10-25 14:56:00 36.67 Mera [facility] Body height 2019-10-25 14:56:00 160 cm [facility] Body weight 2019-10-25 14:56:00 110.904 kg [facility] BMI 2019-10-25 14:56:00 43.31 kg/m2 [facility] Oxygen saturation in 2019-10-25 14:56:00 99 /min [facility] Arterial blood by [facility] nereida Pulse oximetry Branch Systolic blood 2019-10-24 17:13:00 120 mm[Hg] [facility] pressure [facility] Diastolic blood 2019-10-24 17:13:00 81 mm[Hg] [facility]ive rs[facility] Heart rate 2019-10-24 17:13:00 75 /min [facility] Respiratory rate 2019-10-24 17:13:00 19 /min [facility] Body height 2019-10-24 17:13:00 160 cm [facility] Body weight 2019-10-24 17:13:00 110.133 kg [facility] BMI 2019-10-24 17:13:00 43.01 kg/m2 [facility] Oxygen saturation in 2019-10-24 17:13:00 99 /min [facility] blood by [facility] [employer] nereida Pulse oximetry Branch Systolic blood 2019-09-29 16:38:00 93 mm[Hg] [facility] Diastolic blood 2019-09-29 16:38:00 64 mm[Hg] [facility]ive rs[facility] Heart rate 2019-09-29 16:38:00 77 /min [facility] Body temperature 2019-09-29 16:38:00 36.5 Mera [facility] Respiratory rate 2019-09-29 16:38:00 20 /[facility] 2019-09-29 16:38:00 160 cm [facility] [place] Body weight 2019-09-29 16:38:00 109.77 kg Universi ty [facility] BMI 2019-09-29 16:38:00 42.87 kg/m2 Universi ty [facility] Systolic blood 2019-04-28 14:39:00 105 mm[Hg] Univer sity of pressure [facility] Diastolic blood 2019-04-28 14:39:00 62 mm[Hg] Unive rsity of pressure [facility] Heart rate 2019-04-28 14:39:00 87 /min Universi ty [facility] Body temperature 2019-04-28 14:39:00 36.94 Mera [facility] Respiratory rate 2019-04-28 14:39:00 18 /min [facility] height 2019-04-28 14:39:00 160 cm Universi ty [facility] Body weight 2019-04-28 14:39:00 123.832 kg Universi ty [facility] BMI 2019-04-28 14:39:00 48.36 kg/m2 [facility] BP Systolic 2022-09-10 11:46:00 168 [...] Source Performed REFERRAL- 2020-09-27 06:01:00 Doctor Lucina, [facility] REQUEST/RESPONSE [facility] MR KNEE LEFT WO CONTRAST 2020-08-20 18:12:04 Alexandre Delgado [facility] NOTICE OF PRIVACY 2020-08-02 06:01:00 Doctor Lucina, [facility] PRACTICES [facility] AGREEMENTS AUTHORIZATIONS 2020-08-02 06:01:00 Doctor Lucina, [facility] AND IRREVOCABLE [facility] ASSIGNMENTS (FORM 2001) VACCINATIONS - CONSENTS, 2020-05-17 05:01:00 Doctor Verdugo, [facility] ELIGIBILITY, HISTORY [facility] XR KNEE 3 VW LEFT 2020-03-16 13:13:36 Alexandre Delgado [facility] SCANNED LAB RESULTS 2020-03-08 05:01:00 Doctor Lucina, [facility] ASSIGNMENT OF BENEFITS 2020-02-10 13:57:41 Doctor [facility], [facility] - PRESCRIPTION / 2019-09-08 06:01:00 Doctor Marlin Verdugo [facility] ORDER [facility] AGREEMENTS AUTHORIZATIONS 2019-04-28 05:01:00 Doctor Lucina, [facility] AND IRREVOCABLE [facility] ASSIGNMENTS (FORM 2001) 04666 Ecg Routine Ecg 2018-06-14 00:00:00 W/least 12 Lds W/i r Plan of Care Planned Activity Planned Date Details Comments Source Goal Plan of Care Note [code = 05230-3] Goal Plan of Care Note [code = 37093-9] Goal Plan of Care Note [code = 93087-1] Goal Plan of Care Note [code = 09357-3] Goal Plan of Care Note [code = 92883-8] Goal Plan of Care Note [code = 96124-2] Goal Plan of Care Note [code = 71795-1] Goal Plan of Care Note [code = 87256-8] Goal Plan of Care Note [code = 72283-0] Goal Plan of Care Note [code = 13012-4] Goal Plan of Care Note [code = 61092-3] Goal Plan of Care Note [code = 51785-2] Goal Plan of Care Note [code = 08132-5] Goal Plan of Care Note [code = 56355-5] Goal Plan of Care Note [code = 69371-6] Goal Plan of Care Note [code = 91542-8] Goal Plan of Care Note [code = 58424-4] Goal Plan of Care Note [code = 48594-1] Goal Plan of Care Note [code = 00500-9] Goal Plan of Care Note [code = 49969-8] Goal Plan of Care Note [code = 55227-2] Goal Plan of Care Note [code = 23531-2] Goal Plan of Care Note [code = 33657-6] Goal Plan of Care Note [code = 47694-8] Goal Plan of Care Note [code = 98691-7] Goal Plan of Care Note [code = 23050-5] Goal Plan of Care Note [code = 83720-5] Goal Plan of Care Note [code = 06690-8] Goal Plan of Care Note [code = 00901-1] Goal Plan of Care Note [code = 29652-7] Goal Plan of Care Note [code = 76315-2] Goal Plan of Care Note [code = 86842-4] Goal Plan of Care Note [code = 49902-2] Goal Plan of Care Note [code = 95114-2] Goal Plan of Care Note [code = 85898-1] Goal Plan of Care Note [code = 45983-9] Goal Plan of Care Note [code = 47522-9] Goal Plan of Care Note [code = 46584-3] Goal Plan of Care Note [code = 25119-8] Goal Plan of Care Note [code = 40747-9] Goal Plan of Care Note [code = 57392-3] Goal Plan of Care Note [code = 03658-9] Goal Plan of Care Note [code = 38614-3] Goal Plan of Care Note [code = 28839-7] Goal Plan of Care Note [code = 34087-7] Goal Plan of Care Note [code = 07178-0] Goal Plan of Care Note [code = 94381-3] Goal Plan of Care Note [code = 61396-1] Goal Plan of Care Note [code = 02028-7] Goal Plan of Care Note [code = 01337-0] Goal Plan of Care Note [code = 83842-7] Goal Plan of Care Note [code = 23066-9] Goal Plan of Care Note [code = 55064-0] Goal Plan of Care Note [code = 10136-5] Goal Plan of Care Note [code = 58308-3] Goal Plan of Care Note [code = 19848-1] Goal Plan of Care Note [code = 41860-7] Goal Plan of Care Note [code = 41127-9] Goal Plan of Care Note [code = 65714-2] Goal Plan of Care Note [code = 97696-8] Goal Plan of Care Note [code = 54644-2] Goal Plan of Care Note [code = 42278-8] Goal Plan of Care Note [code = 46592-7] Goal Plan of Care Note [code = 79421-6] Goal Plan of Care Note [code = 92494-3] Goal Plan of Care Note [code = 54935-6] Goal Plan of Care Note [code = 36288-3] Goal Plan of Care Note [code = 84918-3] Goal Plan of Care Note [code = 11207-5] Goal Plan of Care Note [code = 70341-3] Goal Plan of Care Note [code = 53077-7] Goal Plan of Care Note [code = 96524-1] Goal Plan of Care Note [code = 57083-7] Goal Plan of Care Note [code = 91309-7] Goal Plan of Care Note [code = 75398-6] Goal Plan of Care Note [code = 30067-9] Goal Plan of Care Note [code = 03072-2] Goal Plan of Care Note [code = 53944-4] Goal Plan of Care Note [code = 98256-4] Goal Plan of Care Note [code = 77220-9] Goal Plan of Care Note [code = 69102-8] Goal Plan of Care Note [code = 77265-0] Goal Plan of Care Note [code = 07433-0] Goal Plan of Care Note [code = 67460-4] Goal Plan of Care Note [code = 62653-6] Goal Plan of Care Note [code = 95353-2] Goal Plan of Care Note [code = 09105-8] Goal Plan of Care Note [code = 83268-8] Goal Plan of Care Note [code = 70160-4] Goal Plan of Care Note [code = 73972-6] Goal Plan of Care Note [code = 12794-9] Goal Plan of Care Note [code = 80018-6] Goal Plan of Care Note [code = 95372-5] Goal Plan of Care Note [code = 59247-5] Goal Plan of Care Note [code = 74998-2] Goal Plan of Care Note [code = 63084-0] Goal Plan of Care Note [code = 11752-8] Goal Plan of Care Note [code = 64408-2] Goal Plan of Care Note [code = 69471-0] Goal Plan of Care Note [code = 34639-0] Goal Plan of Care Note [code = 58700-7] Goal Plan of Care Note [code = 30468-5] Goal Plan of Care Note [code = 95913-7] Goal Plan of Care Note [code = 07708-4] Goal Plan of Care Note [code = 30228-5] Goal Plan of Care Note [code = 45119-4] Goal Plan of Care Note [code = 54097-7] Goal Plan of Care Note [code = 44488-5] Goal Plan of Care Note [code = 19388-0] Encounters Start End Encounter Admission Attending Care Care Encounter Source Date/Time Date/Time Type Type Clinicians Facility Department ID 2023-04-28 2023-04-28 Outpatient JELENA VICK [id number] Jelena 09:00:00 09:00:00 DARLIN Seybo ld 2023-04-16 2023-04-16 Outpatient KIKE JELENA BOWLES [id number] Jelena 10:30:00 10:30:00 SPENSER Seybol d 2023-03-23 2023-03-23 Outpatient GAURAV PURVIS JELENA BOWLES [id number] Jelena 10:30:00 10:30:00 Seybol d 2023-03-11 2023-03-11 Outpatient ANSELMOJELENA [id number] Jelena 11:15:00 11:15:00 AHMED Seybol d 2023-02-05 2023-02-05 Outpatient LAB90 JELENA BOWLES [id number] Jelena 09:10:00 09:10:00 Seybol d 2023-02-05 2023-02-05 Outpatient PREZAJELENA Umaña [id number] Jelena 00:00:00 00:00:00 BYRON Seybol d 2023-02-02 2023-02-02 Outpatient JELENA STOKES [id number] Jelena 09:30:00 09:30:00 SPENSER Seybol d 2023-02-02 2023-02-02 Outpatient HUNDL JELENA BOWLES [id number] Jelena 00:00:00 00:00:00 ROBYN Seybol d 2023-01-28 2023-01-28 Outpatient ANSELMO JELENA BOWLES [id number] Jelena 11:00:00 11:00:00 AHMED Seybol d 2023-01-18 2023-01-18 Outpatient JELENA GARY [id number] Jelena 00:00:00 00:00:00 ROBYN Seybol d 2023-01-17 2023-01-17 Outpatient PREZASJELENA [id number] Jelena 00:00:00 00:00:00 BYRON Seybol d 2023-01-14 2023-01-14 Outpatient JELENA GARY [id number] Jelena 00:00:00 00:00:00 ROBYN Seybol d 2023-01-07 2023-01-07 Outpatient JELENA GARY [id number] Jelena 00:00:00 00:00:00 ROBYN Seybol d 2023-01-06 2023-01-06 Outpatient KAWAR, GAURAV JELENA BOWLES [id number] Jelena 00:00:00 00:00:00 Seybol d 2023-01-06 2023-01-06 Outpatient HUNDL, JELENA BOWLES [id number] Jelena 00:00:00 00:00:00 ROBYN Seybol d 2023-01-06 2023-01-06 Outpatient MERRILL, JELENA BOWLES [id number] Jelena 00:00:00 00:00:00 JAROD Seybol d 2023-01-01 2023-01-01 Outpatient HUNDL, JELENA BOWLES [id number] Jelena 10:30:00 10:30:00 ROBYN Seybol d 2023-01-01 2023-01-01 Outpatient HUNDL, JELENA BOWLES [id number] Jelena 00:00:00 00:00:00 ROBYN Seybol d 2022-12-31 2022-12-31 Outpatient PLABPA JELENA BOWLES [id number] Jelena 09:00:00 09:00:00 Seybol d 2022-12-30 2022-12-30 Outpatient HUNDL, JELENA BOWLES [id number] Jelena 10:30:00 10:30:00 ROBYN Seybol d 2022-12-29 2022-12-29 Outpatient LAB90 JELENA BOWLES [id number] Jelena 11:20:00 11:20:00 Seybol d 2022-12-29 2022-12-29 Outpatient HUNDL, JELENA BOWLES [id number] Jelena 10:30:00 10:30:00 ROBYN Seybol d 2022-12-29 2022-12-29 Outpatient HUNDL, JELENA BOWLES [id number] Jelena 00:00:00 00:00:00 ROBYN Seybol d 2022-12-29 2022-12-29 Outpatient SEWIELAM, JELENA BOWLES [id number] Jelena 00:00:00 00:00:00 AHMED Seybol d 2022-12-26 2022-12-26 Outpatient PLABPA JELENA BOWLES [id number] Jelena 09:00:00 09:00:00 Seybol d 2022-12-26 2022-12-26 Outpatient JELENA BYNUM [id number] Jelena 00:00:00 00:00:00 JENNIFER Seybol d 2022-12-26 2022-12-26 Outpatient JELENA MALHOTRA [id number] Jelena 00:00:00 00:00:00 BYRON Seybol d 2022-12-25 2022-12-25 Outpatient GAURAV PURVIS [id number] Jelena 00:00:00 00:00:00 Seybol d 2022-12-24 2022-12-24 Outpatient PLAGEETHA BOWLES [id number] Jelena 11:30:00 11:30:00 Seybol d 2022-12-22 2022-12-22 Outpatient HYUN GAURAVDANDRE BOWLES [id number] Jelena 09:00:00 09:00:00 Seybol d 2022-12-22 2022-12-22 Outpatient JELENA GARY [id number] Jelena 00:00:00 00:00:00 ROBYN Seybol d 2022-12-20 2022-12-20 Outpatient JELENA CRUZ [id number] Jelena 00:00:00 00:00:00 JALYN Seybol d 2022-12-19 2022-12-19 Outpatient JELENA MALHOTRA [id number] Jelena 00:00:00 00:00:00 BYRON Seybol d 2022-12-18 2022-12-18 Outpatient JELENA GARY [id number] Jelena 00:00:00 00:00:00 ROBYN Seybol d 2022-12-18 2022-12-18 Outpatient JELENA GARY [id number] Jelena 00:00:00 00:00:00 ROBYN Seybol d 2022-12-15 2022-12-15 Outpatient RUSSELL BOWLES [id number] Jelena 00:00:00 00:00:00 MD ANKITA Seybol d 2022-12-15 2022-12-15 Outpatient JELENA MARTINEZ [id number] Jelena 00:00:00 00:00:00 MANOLO Seybol d 2022-12-15 2022-12-15 Outpatient PATRANULFO, JELENA BOWLES [id number] Jelena 00:00:00 00:00:00 GAUTAM Seybol d 2022-12-12 2022-12-12 Outpatient PATENIA, JELENA BOWLES [id number] Jelena 10:30:00 10:30:00 GAUTAM Seybol d 2022-12-12 2022-12-12 Outpatient JELNEA BOWLES [id number] Jelena 00:00:00 00:00:00 Seybol d 2022-12-12 2022-12-12 Outpatient PREZAS, JELENA BOWLES [id number] Jelena 00:00:00 00:00:00 BYRON Seybol d 2022-12-11 2022-12-11 Outpatient PREZAS, JELENA BOWLES [id number] Jelena 00:00:00 00:00:00 BYRON Seybol d 2022-12-08 2022-12-08 Outpatient MERRILLJELENA [id number] Jelena 10:40:00 10:40:00 JAROD Seybol d 2022-12-08 2022-12-08 Outpatient JELENA BOWLES [id number] Jelena 10:25:00 10:25:00 Seybol d 2022-12-08 2022-12-08 Outpatient GAURAV PURVIS JELENA BOWLES [id number] Jelena 08:30:00 08:30:00 Seybol d 2022-12-08 2022-12-08 Outpatient HUNDL, JELENA BOWLES [id number] Jelena 00:00:00 00:00:00 ROBYN Seybol d 2022-12-04 2022-12-04 Outpatient PREZAS, JELENA BOWLES [id number] Jelena 00:00:00 00:00:00 BYRON Seybol d 2022-12-04 2022-12-04 Outpatient MERRILLJELENA AN [id number] Jelena 00:00:00 00:00:00 JAROD Seybol d 2022-12-04 2022-12-04 Outpatient JELENA BOWLES [id number] Jelena 00:00:00 00:00:00 Seybol d 2022-12-04 2022-12-04 Outpatient COOKIE JELENA BOWLES [id number] Jelena 00:00:00 00:00:00 ROBYN Seybol d 2022-12-01 2022-12-01 Outpatient FARIDAREYNOLD LopezLIT BOWLES [id number] Jelena 00:00:00 00:00:00 ROBYN Seybol d 2022-11-27 2022-11-[address], TECH JELENA BOWLES [id number] Jelena 10:30:00 10:30:00 Seybol d 2022-11-27 2022-11-27 Outpatient RUSSELL JELENA BOWLES [id number] Jelena 00:00:00 00:00:00 MD ANKITA Seybol d 2022-11-27 2022-11-27 Outpatient RUSSELL JELENA BOWLES [id number] Jelena 00:00:00 00:00:00 MD ANKITA Seybol d 2022-11-21 2022-11-21 Outpatient FARIDAJessica JELENA BOWLES [id number] Jelena 00:00:00 00:00:00 ROBYN Seybol d 2022-11-20 2022-11-20 Outpatient [facility] [id number] Jarod 10:08:21 10:08:21 [id number] F Lee 2022-11-19 2022-11-19 Outpatient COOKIE JELENA BOWLES [id number] Jelena 00:00:00 00:00:00 ROBYN Seybol d 2022-11-14 2022-11-14 Outpatient COOKIE JELENA BOWLES [id number] Jelena 00:00:00 00:00:00 ROBYN Seybol d 2022-11-14 2022-11-14 Outpatient JELENA BOWLES [id number] Jelena 00:00:00 00:00:00 Seybol d 2022-11-11 2022-11-11 Outpatient JELENA GARY [id number] Jelena 00:00:00 00:00:00 ROBYN Seybol d 2022-11-07 2022-11-07 Outpatient JELENA VICK [id number] Jelena 00:00:00 00:00:00 DARLIN Seybo ld 2022-11-07 2022-11-07 Outpatient NAVA JELENA BOWLES [id number] Jelena 00:00:00 00:00:00 DARLIN Seybo ld 2022-11-07 2022-11-07 Outpatient NAVA, JELENA JELENA [id number] Jelena 00:00:00 00:00:00 DARLIN Seybo ld 2022-11-07 2022-11-07 Outpatient NAVA JELENA BOWLES [id number] Jelena 00:00:00 00:00:00 DARLIN Seybo ld 2022-11-07 2022-11-07 Outpatient FARIDAL, JELENA BOWLES [id number] Jelena 00:00:00 00:00:00 ROBYN Seybol d 2022-11-07 2022-11-07 Outpatient HUNDL, JELENA BOWLES [id number] Jelena 00:00:00 00:00:00 ROBYN Seybol d 2022-11-07 2022-11-07 Outpatient FARIDAL, JELENA BOWLES [id number] Jelena 00:00:00 00:00:00 ROBYN Seybol d 2022-11-07 2022-11-07 Outpatient HUNDL, JELENA BOWLES [id number] Jelena 00:00:00 00:00:00 ROBYN Seybol d 2022-11-07 2022-11-07 Outpatient HUNDL, JELENA BOWLES [id number] Jelena 00:00:00 00:00:00 ROBYN Seybol d 2022-11-07 2022-11-07 Outpatient FARIDAL, JELENA BOWLES [id number] Jelena 00:00:00 00:00:00 ROBYN Seybol d 2022-10-30 2022-10-30 Outpatient [facility] [id number] Jarod 08:26:44 08:26:44 [id number] F Lee 2022-10-30 2022-10-30 Outpatient FARIDAL, JELENA BOWLES [id number] Jelena 00:00:00 00:00:00 ROBYN Seybol d 2022-10-29 2022-10-29 Outpatient HUNDL, JELENA BOWLES [id number] Jelena 00:00:00 00:00:00 ROBYN Seybol d 2022-10-29 2022-10-29 Outpatient COOKIE JELENA BOWLES [id number] Jelena 00:00:00 00:00:00 ROBYN Seybol d 2022-10-29 2022-10-29 Outpatient COOKIE JELENA BOWLES [id number] Jelena 00:00:00 00:00:00 ROBYN Seybol d 2022-10-29 2022-10-29 Outpatient NAVA JELENA BOWLES [id number] Jelena 00:00:00 00:00:00 DARLIN Seybo ld 2022-10-28 2022-10-28 Outpatient LAB47 JELENA BOWLES [id number] Jelena 09:45:00 09:45:00 Seybol d 2022-10-28 2022-10-28 Outpatient NAVA JELENA BOWLES [id number] Jelena 09:00:00 09:00:00 DARLIN Seybo ld 2022-10-23 2022-10-23 Outpatient COOKIE JELENA BOWLES [id number] Jelena 00:00:00 00:00:00 ROBYN Seybol d 2022-10-22 2022-10-22 Outpatient COOKIE JELENA BOWLES [id number] Jelena 08:00:00 08:00:00 ROBYN Seybol d 2022-10-13 2022-10-13 Outpatient [facility] [id number] Jarod 11:24:16 11:24:16 [id number] F Lee 2022-10-10 2022-10-10 Outpatient LAB90 JELENA BOWLES [id number] Jelena 09:25:00 09:25:00 Seybol d 2022-10-10 2022-10-10 Outpatient COOKIE JELENA BOWLES [id number] Jelena 08:30:00 08:30:00 ROBYN Seybol d 2022-10-10 2022-10-10 Outpatient JELENA GARY [id number] Jelena 00:00:00 00:00:00 ROBYN Seybol d 2022-10-09 2022-10-09 Outpatient FARIDAJessica JELENA BOWLES [id number] Jelena 08:30:00 08:30:00 ROBYN Seybol d 2022-10-09 2022-10-09 Outpatient COOKIE JELENA JELENA [id number] Jelena 00:00:00 00:00:00 ROBYN Seybol d 2022-09-30 2022-09-30 Outpatient JELENA GARY JELENA [id number] Jelena 00:00:00 00:00:00 ROBYN Seybol d 2022-09-26 2022-09-26 Outpatient COOKIE JELENA BOWLES [id number] Jelena 00:00:00 00:00:00 ROBYN Seybol d 2022-09-24 2022-09-24 Outpatient LAB90 JELENA JELENA [id number] Jelena 17:05:00 17:05:00 Seybol d 2022-09-24 2022-09-24 Outpatient COOKIE JELENA JELENA [id number] Jelena 11:00:00 11:00:00 ROBYN Seybol d 2022-09-22 2022-09-22 Outpatient SFA SFA [id number] Jarod 09:21:24 09:21:24 0123 F Lee 2022-09-22 2022-09-22 Outpatient JELENA GARY JELENA [id number] Jelena 00:00:00 00:00:00 ROBYN Seybol d 2022-09-17 2022-09-17 Outpatient JELENA GARY JELENA [id number] Jelena 00:00:00 00:00:00 ROBYN Seybol d 2022-09-12 2022-09-12 Outpatient COOKIE JELENA BOWLES [id number] Jelena 00:00:00 00:00:00 ROBYN Seybol d 2022-09-11 2022-09-11 Outpatient COOKIE JELENA BOWLES [id number] Jelena 00:00:00 00:00:00 ROBYN Seybol d 2022-09-10 2022-09-10 Outpatient SFA SFA [id number] Jarod 11:36:44 11:36:44 0111 F Lee 2022-09-10 2022-09-10 Outpatient [id number] 00:00:00 00:00:00 Visit [id number] 2022-09-09 2022-09-09 Outpatient LAB90 JELENA FLAHERTYSEY [id number] Jelena 09:30:00 09:30:00 Seybol d 2022-09-09 2022-09-09 Outpatient JELENA GARYSEY [id number] Jelena 08:30:00 08:30:00 ROBYN Seybol d 2022-09-09 2022-09-09 Outpatient JELENA GARY JELENA [id number] Jelena 00:00:00 00:00:00 ROBYN Seybol d 2022-09-04 2022-09-04 Outpatient SFA SFA [id number] Jarod 08:29:33 08:29:33 [id number] F Lee 2022-09-04 2022-09-04 Outpatient [id number] 00:00:00 00:00:00 Visit [id number] 2022-08-28 2022-08-28 Outpatient SFA SFA [id number] Jarod 11:35:11 11:35:11 [id number] F Lee 2022-08-28 2022-08-28 Outpatient [id number] [id number] 00:00:00 00:00:00 Visit [id number]-47c2-b -b0x1-f12 4f2-m427k2 [id number] [id number] 2022-05-24 2022-05-24 [facility] [id number] 15:15:00 18:38:00 [id number] [id number] 36 -[id number]-ca8 [id number] 5eb 2022-03-15 2022-03-15 Outpatient DAR_CONSTANTIN PEDERS[facility] 761 [place] 10:56:00 10:56:00 FLO 0716 da [facility] 2020-11-29 2020-11-29 Outpatient [facility] [id number] Univers 15:30:00 15:30:00 ANNEMARIEDANIS arshad o f [facility] 2020-10-23 2020-10-23 Telephone SandyAlexandre 1.2.840.114 [id number] Univers 00:00:00 00:00:00 [facility] 350.1.13.10 it [place] [id number] [facility] [address] 2020-10-23 2020-10-23 Telephone Bethany Delgadoteodora GALLEGOS 1.2.840.114 [id number] 00:00:00 00:00:00 [facility] 350.1.13.10 HEALTH 4.2.7.2.686 UNIT [id number] 362 2020-10-12 2020-10-12 Outpatient R TASH [facility] [id number] Univers 09:00:00 09:00:00 SHEY arshad [facility] 2020-09-27 2020-09-27 Orders Doctor OCNNER 1.2.840.114 [id number] Univers 00:00:00 00:00:00 Only Unassigned, LESLEY 350.1.13.10 ity of [facility] 4.2.7.2.686 Marvel as [id number] [facility] [address] 2020-09-27 2020-09-27 Orders Doctor CONNER 1.2.840.114 [id number] 00:00:00 00:00:00 Only Unassigned, LESLEY 350.1.13.10 [facility] 4.2.7.2.686 [id number] 009 2020-09-20 2020-09-20 [facility] 1.2.840.114 [id number] Univers 00:00:00 00:00:00 Shey [facility] 350.1.13.10 it y of Surgical 4.2.7.2.686 Marvel as Specialti [id number] [address] 2020-09-20 2020-09-20 [facility] 1.2.840.114 [id number] 00:00:00 00:00:00 Shey L Health 350.1.13.10 Surgical 4.2.7.2.686 Specialti [phone] es [address] [place] 2020-09-07 2020-09-07 Office Tash [facility] 1.2.151.664 [id number] Univers 09:03:53 09:52:26 Visit Shey Lopez [facility] 350.1.13.10 it y of Surgical 4.2.7.2.686 Marvel as Specialti [id number] Me dical es [address] [facility] 2020-09-07 2020-09-07 [facility] 1.2.405.862 [id number] 09:03:53 09:52:26 Visit Shey [facility] 350.1.13.10 Surgical 4.2.7.2.686 Specialti [id number] es [address] [place] 2020-09-07 2020-09-07 Outpatient [facility] [id number] Univers 09:00:00 09:00:00 [facility] 2020-08-30 2020-08-30 Outpatient R [facility] [id number] Univers 08:30:00 08:30:00 [facility] 2020-08-20 2020-08-20 [facility] 1.2.840.114 [id number] Univers 10:11:58 23:59:00 Encounter Health 350.1.13.10 it[place] of [place] [id number] [place] [address] [address] ([facility]) 2020-08-20 2020-08-20 Outpatient R ALEXANDRE DELGADO [facility] [id number] Univers 10:11:58 23:59:00 ity of [facility] 2020-08-16 2020-08-16 Refgreg [facility] 1.2.840.114 [id number] Univers 00:00:00 00:00:00 [facility] 350.1.13.10 it y of [place] 4.2.7.2.686 Marvel as Professio [phone] Me dical nal [address] Office Building One 2020-08-02 2020-08-02 Office Care, Ang Primary BRAZORIA 1.2.840 .114 [id number] Univers 10:40:31 12:20:58 Visit Alexandre Delgado [facility] 350.1.13.10 ity of [place] [id number] [address] 2020-08-02 2020-08-02 [facility] [id number] Univers 10:30:00 10:30:00 ity [facility] 2020-08-02 2020-08-02 Orders Doctor CONNER 1.2.840.114 [id number] Univers 00:00:00 00:00:00 Only Unassigned, LESLEY 350.1.13.10 ity of [facility] 4.2.7.2.686 Marvel as [phone] [address] 2020-05-31 2020-05-31 Outpatient R [facility] [id number] Univers 08:50:00 08:50:00 ILIANA [facility] 2020-05-24 2020-05-24 Outpatient R SANDY [facility] [id number] Univers 00:00:00 00:00:00 ity [facility] 2020-05-22 2020-05-22 Outpatient R [facility] [id number] Univers 09:50:00 09:50:00 [facility] 2020-05-17 2020-05-21 Office Care, Ang Primary B[place]ZOR[place] 1.2.840 .114 [id number] Univers 11:05:31 09:49:52 Visit Alexandre Delgado [facility] 350.1.13.10 ity of [facility] 4.2.7.2.[place] [id number] [address] 2020-05-21 2020-05-21 Outpatient R SANDY [facility] [id number] Univers 00:00:00 00:00:00 ity [facility] 2020-05-17 2020-05-17 Outpatient R SANDY [facility] [id number] Univers 10:30:00 10:30:00 ity [facility] 2020-05-17 2020-05-17 Orders Doctor PRIETO 1.2.840.114 [id number] Univers 00:00:00 00:00:00 Only Unassigned, LESLEY 350.1.13.10 ity of [place] [facility] 4.2.7.2.686 Marvel as [phone] [facility] [address] 2020-05-08 2020-05-08 Outpatient R [facility] [id number] Univers 08:30:00 08:30:00 ANNEMARIE magaña [facility] 2020-05-08 2020-05-08 Telemedici [facility] 1.2.840.114 [id number] Univers 07:05:41 07:35:41 ne Visit Annemarie Pena SPECIALTY 350.1.13.10 ity of C[place] AT [id number] [place] suman BYRD 072 [facility] 2020-05-01 2020-05-01 Outpatient Gracia [facility] [id number] Univers 09:30:00 09:30:00 ANNEMARIE magaña [facility] 2020-04-24 2020-04-24 Outpatient Gracia [facility] [id number] Univers 09:30:00 09:30:00 ANNEMARIE magaña [facility] 2020-03-08 2020-03-20 Office Care, Aries GALLEGOS 1.2.840 .114 [id number] Univers 10:02:59 09:15:53 Visit Alexandre Delgado 350.1.13.10 it[place] [id number] [facility] [address] 2020-03-16 2020-03-16 Hospital Sandy Alexandre [facility] 1.2.840.114 [id number] Univers 07:51:00 23:59:00 Encounter [place] 350.1.13.10 ity of [place].2.7.2.[place] [id number] [facility] [address] 2020-03-16 2020-03-16 Outpatient R ALEXANDRE DELGADO [facility] [id number] Univers 00:00:00 00:00:00 ity of [facility] 2020-03-13 2020-03-13 Telephone Alexandre Delgado ROSY 1.2.840.114 [id number] Univers 00:00:00 00:00:00 [facility] 350.1.13.10 it y of [place].2.[place] [id number] [facility] 2020-03-08 2020-03-08 Outpatient R ALEXANDRE DELGADO [facility] [id number] Univers 10:00:00 10:00:00 ity of [facility] 2020-03-08 2020-03-08 Orders Doctor CONNER 1.2.840.114 [id number] Univers 00:00:00 00:00:00 Only Unassigned, LESLEY 350.1.13.10 ity of [place] [facility] 4.2.7.2.686 Marvel as [phone] [facility] [address] 2020-02-29 2020-02-29 Telephone Alexandre Delgado 1.2.840.114 [id number] Univers 00:00:00 00:00:00 [facility] 350.1.13.10 it y [place] [id number] [address] 2020-02-14 2020-02-14 Telephone [facility] 1.2.954.406 [id number] Univers 00:00:00 00:00:00 Dannie Gaspar 350.1.13.10 ity of [place].2.[place] [phone] [place] [address] [facility] 2020-02-10 2020-02-10 Outpatient R [facility] [id number] Univers 09:00:00 09:00:00 ity of [facility] 2020-02-10 2020-02-10 Orders Doctor PRIETO 1.2.840.114 [id number] Univers 00:00:00 00:00:00 Only Unassigned, LESLEY 350.1.13.10 ity of [place] [facility] 4.2.7.2.686 Marvel as [id number] [address] 2020-01-24 2020-01-24 Outpatient R [facility] [id number] Univers 10:40:00 10:40:00 DANNIE tafoyay o f [facility] 2020-01-24 2020-01-24 Telemedici [facility] 1.2.840.114 [id number] Univers 07:57:10 08:17:10 ne Visit Dannie Gaspar 350.1.13.10 ity of [place].2.[place] Profess[place] [phone] Ks dical nal 059 [facility] 2020-01-18 2020-01-18 Outpatient R [facility] [id number] Univers 13:00:00 13:00:00 ity of [facility] 2019-11-10 2019-11-10 Telephone Sandy Alexandre ROSY 1.2.840.114 [id number] Univers 00:00:00 00:00:00 [facility] 350.1.13.10 it y of [place] [id number] [address] 2019-11-03 2019-11-03 Outpatient R ALEXANDRE DELGADO [facility] [id number] Univers 08:15:00 08:15:00 ity of [facility] 2019-10-25 2019-10-25 Office [facility] 1.2.840.114 [id number] Univers 08:48:06 09:27:18 Visit Annemarie AVILES 350.1.13.10 ity of CARE [place].2.[place] AT [phone] Ks lawrencenargis LIZBETHY 072 [facility] 2019-10-25 2019-10-25 Outpatient R [facility] [id number] Univers 09:00:00 09:00:00 ANNEMARIE ity o f [facility] 2019-10-24 2019-10-24 Office [facility] 1.2.840.114 [id number] Univers 10:57:17 15:44:20 Visit Dannie Gaspar 350.1.13.10 ity [place].2.[place] Profess[place] [phone] K[place] dical nal [address] [place] [address] 2019-10-24 2019-10-24 Outpatient R [facility] [id number] Univers 11:00:00 11:00:00 DANNIE ity o f [facility] 2019-09-29 2019-09-29 Office Care, Aries GALLEGOS 1.2.840 .114 [id number] Univers 10:38:08 11:16:42 Visit Alexandre Delgado [facility] 350.1.13.10 ity of [place] [id number] [address] 2019-09-29 2019-09-29 Outpatient R ALEXANDRE DELGADO [facility] [id number] Univers 10:00:00 11:16:42 ity of [facility] 2019-09-14 2019-09-14 Telephone Alexandre DelgadoKAYLAH 1.2.840.114 [id number] Univers 00:00:00 00:00:00 [facility] 350.1.13.10 it y [place] [id number] [address] 2019-09-08 2019-09-08 Orders Doctor CONNER 1.2.840.114 [id number] Univers 00:00:00 00:00:00 Only Unassigned, LESLEY 350.1.13.10 ity of [place] [facility] 4.2.7.2.686 Marvel as [phone] [address] 2019-05-05 2019-05-05 Telephone Alexandre DelgadoKAYLAH 1.2.840.114 [id number] Univers 00:00:00 00:00:00 [facility] 350.1.13.10 it y [place] [id number] [address] 2019-04-28 2019-04-28 Office Care, [facility] Bob GALLEGOS 1.2.840 .114 [id number] Univers 09:26:40 11:38:19 Visit Alexandre Delgado [facility] 350.1.13.10 ity of [place] [id number] [address] 2019-04-28 2019-04-28 Orders Doctor CONNER 1.2.840.114 [id number] Univers 00:00:00 00:00:00 Only Unassigned, LESLEY 350.1.13.10 ity of [place] [facility] 4.2.7.2.686 Marvel as [phone] [address] Results Test Description Test Time Test Comments Results Result Comments Source [facility] 2022-09-11 04:08:38 Test Item Value Reference Range Interpretation Comme nts TSH, THIRD GENERATION (test 2.060 UIU/ML 0.400-4.100 UNLESS OTHERWISE INDICATED, code = 2821) ALL TESTING PER FORMED ATCLINICAL PATH OLOGY LABORATORIES, I ID. [address] [id number] ANODISER: Tracey COBBPOOJA NOLAND Gracia [id number] CAP [place] [id number] COMPREHENSIVE METABOLIC [id number] 03:23:31 Test Item Value Reference Range Interpretation Comments GLUCOSE (test code = 80 MG/DL 70-99 2216) BUN (test code = 7 MG/DL 6-20 2207) CREATININE (test 0.55 MG/DL 0.60-1.30 L code = 2214) eGFR (2020 CKD-EPI) 127 >60 (test code = 48335) ML/MIN/1.73 CALC BUN/CREAT (test 13 RATIO 6-28 code = 2235) SODIUM (test code = 138 MEQ/L 857-432 3165) POTASSIUM (test code 3.9 MEQ/L 3.5-5.4 = [...] U/L 5-40 2219) CBC W/AUTO DIFF WITH [id number] 02:00:05 Test Item Value Reference Range Interpretation [...] RBCS 0.00 K/UL 0.00-0.11 (test code = 85295) CT/NG, NAAT, [id number] 20:52:50 Test Item Value Reference Range Interpretation Comments GONORRHEA, NAAT NEGATIVE NEGATIVE Note: Testi ng is (test code = 59978) performe d with Emili EDEL 6800/8800 systems using real-time polymerase cali n reaction (PCR) method. CHLAMYDIA, NAAT NEGATIVE NEGATIVE Note: Testi ng is (test code = 89120) performe d with Emili EDEL 6800/8800 systems using real-time polymerase cali n reaction (PCR) method. HEPATITIS PANEL, [id number] 05:02:20 Test Item Value Reference Range Interpretation Comments HEPATITIS A IgM (test NON-REACTIVE NON-REACTIVE code = 27002) HEPATITIS B CORE IgM NON-REACTIVE NON-REACTIVE (test code = 4644) HEPATITIS B SURF AG NON-REACTIVE NON-REACTIVE (test code = 2739) HEPATITIS C ANTIBODY NON-REACTIVE NON-REACTIVE (test code = 4675) INTERPRETATION (NOTE) Hepatitis A HEPATITIS A: (test code sero logy shows no = 2552) evidence of acu te hepatitis A. INTERPRETATION (NOTE) Hepatitis B HEPATITIS B: (test code sero logy shows no = 44216) evidence of acu te hepatitis B and no indication of exposure to hepatitis B vir us in the previous alejnadra eight months. INTERPRETATION (NOTE) Hepatitis C HEPATITIS C: (test code sero logy shows no = 73969) evidence of exposure to hepatitisC viru s at this time. I t can take up to 12 months after exposure tothe hepatitis C vir us for antibodies to become detectab le in the blood in certain patient s. HIV 1/2 4TH GEN, RFLX [id number] 05:02:20 Test Item Value Reference Range Interpretation Comments HIV 1/2 4TH GEN, NON-REACTIVE NON-REACTIVE UNLESS OTH ERWISE RFLX CONF (test INDICATED, A LL TESTING code = 3514) PERFORMED [facility] NICAL PATHOLOGY LABOR [employer] [address] [place] [address] [facility] DIRECTOR: [place] AGUIRRE M.D. CLIA NUMBER [id number] CAP ACCREDITATION N O. [id number] RPR REFLEX TO T. PALLIDUM - [id number] 04:28:08 Test Item Value Reference Range Interpretation Comments RPR (test code = 71389) NON-REACTIVE NON-REACTIVE RPR TITER (test code = 3500) NOT INDIC. TITER NOT INDIC. CT/NG, TMA, [id number] 00:00:00 Test Item Value Reference Range Interpretation Comments GONORRHEA, NAAT (test code = 81531) NEGATIVE CHLAMYDIA, NAAT (test code = 53053) NEGATIVE CT/NG, TMA, [id number] 00:00:00 Test Item Value Reference Range Interpretation Comments GONORRHEA, NAAT (test code = 40095) NEGATIVE CHLAMYDIA, NAAT (test code = 69423) NEGATIVE RPR REFLEX TO T. PALLIDUM - [id number] 00:00:00 Test Item Value Reference Range Interpretation Comments RPR (test code = 14406) NON-REACTIVE RPR TITER (test code = 3500) NOT INDIC. TITER RPR REFLEX TO T. PALLIDUM - [id number] 00:00:00 Test Item Value Reference Range Interpretation Comments RPR (test code = 00679) NON-REACTIVE RPR TITER (test code = 3500) NOT INDIC. TITER ACUTE HEPATITIS [id number] 00:00:00 Test Item Value Reference Range Interpretation Comments HEPATITIS A IgM (test code = NON-REACTIVE 82689) HEPATITIS B CORE IgM (test code NON-REACTIVE = 4644) HEPATITIS B SURF AG (test code = NON-REACTIVE 2739) HEPATITIS C ANTIBODY (test code NON-REACTIVE = 4675) INTERPRETATION HEPATITIS A: (NOTE) (test code = 2552) INTERPRETATION HEPATITIS B: (NOTE) (test code = 06097) INTERPRETATION HEPATITIS C: (NOTE) (test code = 67673) ACUTE HEPATITIS [id number] 00:00:00 Test Item Value Reference Range Interpretation Comments HEPATITIS A IgM (test code = NON-REACTIVE 07241) HEPATITIS B CORE IgM (test code NON-REACTIVE = 4644) HEPATITIS B SURF AG (test code = NON-REACTIVE 2739) HEPATITIS C ANTIBODY (test code NON-REACTIVE = 4675) INTERPRETATION HEPATITIS A: (NOTE) (test code = 2552) INTERPRETATION HEPATITIS B: (NOTE) (test code = 28878) INTERPRETATION HEPATITIS C: (NOTE) (test code = 15106) HIV 1/2 4TH GEN, RFLX [id number] 00:00:00 Test Item Value Reference Range Interpretation Comments HIV 1/2 4TH GEN, RFLX CONF (test NON-REACTIVE code = 3514) HIV 1/2 4TH GEN, RFLX [id number] 00:00:00 Test Item Value Reference Range Interpretation Comments HIV 1/2 4TH GEN, RFLX CONF (test NON-REACTIVE code = 3514) VITAMIN D, 25 [id number] 03:25:23 Test Item Value Reference Range Interpretation [...] ATED, ALL TESTING PERFORM ED ATCLINICAL PATH [address] [address] LABORATORY DIRE CTOR: Rebeca COBB. CLIA NUMBER [id number] CAP ACCREDITATION N O. [id number] HIV 1/2 4TH GEN, RFLX [id number] 03:00:39 Test Item Value Reference Range Interpretation Comments HIV 1/2 4TH GEN, RFLX CONF (test NON-REACTIVE NON-REACTIVE code = 3514) HIV AB/AG COMBO RFLX [id number] 00:00:00 Test Item Value Reference Range Interpretation Comments HIV 1/2 4TH GEN, RFLX CONF (test NON-REACTIVE code = 3514) HIV AB/AG COMBO RFLX [id number] 00:00:00 Test Item Value Reference Range Interpretation Comments HIV 1/2 4TH GEN, RFLX CONF (test NON-REACTIVE code = 3514) VITAMIN D, 25 [id number] 00:00:00 Test Item Value Reference Range Interpretation Comments VITAMIN D, 25 OH (test code = 4958) 27 NG/ML VITAMIN D, 25 [id number] 00:00:00 Test Item Value Reference Range Interpretation Comments VITAMIN D, 25 OH (test code = 4958) 27 NG/ML HIV AB/AG COMBO RFLX [id number] 00:00:00 Test Item Value Reference Range Interpretation Comments HIV 1/2 4TH GEN, RFLX CONF (test NON-REACTIVE code = 3514) HIV AB/AG COMBO RFLX [id number] 00:00:00 Test Item Value Reference Range Interpretation Comments HIV 1/2 4TH GEN, RFLX CONF (test NON-REACTIVE code = 3514) VITAMIN D, 25 [id number] 00:00:00 Test Item Value Reference Range Interpretation Comments VITAMIN D, 25 OH (test code = 4958) 27 NG/ML VITAMIN D, 25 [id number] 00:00:00 Test Item Value Reference Range Interpretation Comments VITAMIN D, 25 OH (test code = 4958) 27 NG/ML HIV AB/AG COMBO RFLX [id number] 00:00:00 Test Item Value Reference Range Interpretation Comments HIV 1/2 4TH GEN, RFLX CONF (test NON-REACTIVE code = 3514) HIV AB/AG COMBO RFLX [id number] 00:00:00 Test Item Value Reference Range Interpretation Comments HIV 1/2 4TH GEN, RFLX CONF (test NON-REACTIVE code = 3514) VITAMIN D, 25 [id number] 00:00:00 Test Item Value Reference Range Interpretation Comments VITAMIN D, 25 OH (test code = 4958) 27 NG/ML VITAMIN D, 25 [id number] 00:00:00 Test Item Value Reference Range Interpretation Comments VITAMIN D, 25 OH (test code = 4958) 27 NG/ML TSH, THIRD [id number] 00:19:50 Test Item Value Reference Range Interpretation Comments TSH, THIRD GENERATION (test code 1.090 UIU/ML 0.400-4.100 = 2821) [id number] 00:00:00 Test Item Value Reference Range Interpretation Comments TSH, THIRD GENERATION (test code 1.090 UIU/ML = 2821) [id number] 00:00:00 Test Item Value Reference Range Interpretation Comments TSH, THIRD GENERATION (test code 1.090 UIU/ML = 2821) [id number] 00:00:00 Test Item Value Reference Range Interpretation Comments TSH, THIRD GENERATION (test code 1.090 UIU/ML = 2821) [id number] 00:00:00 Test Item Value Reference Range Interpretation Comments TSH, THIRD GENERATION (test code 1.090 UIU/ML = 2821) [id number] 00:00:00 Test Item Value Reference Range Interpretation Comments TSH, THIRD GENERATION (test code 1.090 UIU/ML = 2821) [id number] 00:00:00 Test Item Value Reference Range Interpretation Comments TSH, THIRD GENERATION (test code 1.090 UIU/ML = 2821) [id number] 00:00:00 Test Item Value Reference Range Interpretation Comments TSH, THIRD GENERATION (test code 1.090 UIU/ML = 2821) [id number] 00:00:00 Test Item Value Reference Range Interpretation Comments TSH, THIRD GENERATION (test code 1.090 UIU/ML = 2821) [id number] 00:00:00 Test Item Value Reference Range Interpretation Comments TSH, THIRD GENERATION (test code 1.090 UIU/ML = 2821) LIPID [id number] 23:59:41 Test Item Value Reference Range Interpretation [...] , SEE CLIENT ANNOUNCE MENT AT [email or web address] RISK RATIO LDL/HDL 1.79 RATIO <3.22 (test code = 2238) COMPREHENSIVE METABOLIC [id number] 23:59:41 Test Item Value Reference Range Interpretation Comments GLUCOSE (test code = 77 MG/DL 70-99 2216) BUN (test code = 8 MG/DL 6-20 2207) CREATININE (test 0.67 MG/DL 0.60-1.30 EFFECTIVE code = 2214) 08/12/2021, [facility] HAS IMPLEMENTED THE NKF-ASN RECOMME NDED KD-EPI EGF R REFIT CALCULATI ON THAT DOES NOT INCLUDE A COEFFICIENT FOR RACE. FOR MORE INFORMATION, SE E ANNOUNCEMENT [email or web address] eGFR (2020 CKD-EPI) 122 >60 (test code = 45967) ML/MIN/1.73 CALC BUN/CREAT (test 12 RATIO 6-28 code = 2235) SODIUM (test code = 141 MEQ/L 136-221 2939) POTASSIUM (test code 4.0 MEQ/L 3.5-5.4 = [...] = 92 U/L 5-40 H 2218) HEMOGLOBIN [id number] 03:14:31 Test Item Value Reference Range Interpretation Comments HEMOGLOBIN A1c (test code = 64893) 6.0 % 4.2-5.6 H CBC W/AUTO DIFF WITH [id number] 03:06:02 Test Item Value Reference Range Interpretation [...] RBCS 0.00 K/UL 0.00-0.11 (test code = 19099) CBC W/AUTO [id number] 00:00:00 Test Item Value Reference Range Interpretation [...] NUCLEATED RBCS (test code = 0.00 K/UL 74076) CBC W/AUTO [id number] 00:00:00 Test Item Value Reference Range Interpretation [...] NUCLEATED RBCS (test code = 0.00 K/UL 92018) CBC W/AUTO [id number] 00:00:00 Test Item Value Reference Range Interpretation [...] NUCLEATED RBCS (test code = 0.00 K/UL 97615) HEMOGLOBIN [id number] 00:00:00 Test Item Value Reference Range Interpretation Comments HEMOGLOBIN A1c (test code = 94159) 6.0 % HEMOGLOBIN [id number] 00:00:00 Test Item Value Reference Range Interpretation Comments HEMOGLOBIN A1c (test code = 13880) 6.0 % HEMOGLOBIN [id number] 00:00:00 Test Item Value Reference Range Interpretation Comments HEMOGLOBIN A1c (test code = 40917) 6.0 % LIPID [id number] 00:00:00 Test Item Value Reference Range Interpretation Comments CHOLESTEROL (test code = 2210) 124 MG/DL TRIGLYCERIDES (test code = 2232) 69 MG/DL HDL CHOLESTEROL (test code = 2220) 39 MG/DL CALC LDL CHOL (test code = 2237) 70 MG/DL RISK RATIO LDL/HDL (test code = 1.79 RATIO 2238) LIPID [id number] 00:00:00 Test Item Value Reference Range Interpretation Comments CHOLESTEROL (test code = 2210) 124 MG/DL TRIGLYCERIDES (test code = 2232) 69 MG/DL HDL CHOLESTEROL (test code = 2220) 39 MG/DL CALC LDL CHOL (test code = 2237) 70 MG/DL RISK RATIO LDL/HDL (test code = 1.79 RATIO 2238) COMPREHENSIVE METABOLIC [id number] 00:00:00 Test Item Value Reference Range Interpretation Comments GLUCOSE (test code = 2217) 77 MG/DL BUN (test code = 2208) 8 MG/DL CREATININE (test code = 2214) 0.67 MG/DL eGFR (2020 CKD-EPI) (test 122 ML/MIN/1.73 code = 82422) CALC BUN/CREAT (test code = 12 RATIO [...] code = 2219) 92 U/L COMPREHENSIVE METABOLIC [id number] 00:00:00 Test Item Value Reference Range Interpretation Comments GLUCOSE (test code = 2217) 77 MG/DL BUN (test code = 2208) 8 MG/DL CREATININE (test code = 2214) 0.67 MG/DL eGFR (2020 CKD-EPI) (test 122 ML/MIN/1.73 code = 20308) CALC BUN/CREAT (test code = 12 RATIO [...] code = 2219) 92 U/L CBC W/AUTO [id number] 00:00:00 Test Item Value Reference Range Interpretation [...] NUCLEATED RBCS (test code = 0.00 K/UL 19826) CBC W/AUTO [id number] 00:00:00 Test Item Value Reference Range Interpretation [...] NUCLEATED RBCS (test code = 0.00 K/UL 68798) CBC W/AUTO [id number] 00:00:00 Test Item Value Reference Range Interpretation [...] NUCLEATED RBCS (test code = 0.00 K/UL 47878) CBC W/AUTO [id number] 00:00:00 Test Item Value Reference Range Interpretation [...] NUCLEATED RBCS (test code = 0.00 K/UL 19676) HEMOGLOBIN [id number] 00:00:00 Test Item Value Reference Range Interpretation Comments HEMOGLOBIN A1c (test code = 92353) 6.0 % HEMOGLOBIN [id number] 00:00:00 Test Item Value Reference Range Interpretation Comments HEMOGLOBIN A1c (test code = 99864) 6.0 % HEMOGLOBIN [id number] 00:00:00 Test Item Value Reference Range Interpretation Comments HEMOGLOBIN A1c (test code = 04354) 6.0 % LIPID [id number] 00:00:00 Test Item Value Reference Range Interpretation Comments CHOLESTEROL (test code = 2210) 124 MG/DL TRIGLYCERIDES (test code = 2232) 69 MG/DL HDL CHOLESTEROL (test code = 2220) 39 MG/DL CALC LDL CHOL (test code = 2237) 70 MG/DL RISK RATIO LDL/HDL (test code = 1.79 RATIO 2238) LIPID [id number] 00:00:00 Test Item Value Reference Range Interpretation Comments CHOLESTEROL (test code = 2210) 124 MG/DL TRIGLYCERIDES (test code = 2232) 69 MG/DL HDL CHOLESTEROL (test code = 2220) 39 MG/DL CALC LDL CHOL (test code = 2237) 70 MG/DL RISK RATIO LDL/HDL (test code = 1.79 RATIO 2238) COMPREHENSIVE METABOLIC [id number] 00:00:00 Test Item Value Reference Range Interpretation Comments GLUCOSE (test code = 2217) 77 MG/DL BUN (test code = 2208) 8 MG/DL CREATININE (test code = 2214) 0.67 MG/DL eGFR (2020 CKD-EPI) (test 122 ML/MIN/1.73 code = 57784) CALC BUN/CREAT (test code = 12 RATIO [...] code = 2219) 92 U/L COMPREHENSIVE METABOLIC [id number] 00:00:00 Test Item Value Reference Range Interpretation Comments GLUCOSE (test code = 2217) 77 MG/DL BUN (test code = 2208) 8 MG/DL CREATININE (test code = 2214) 0.67 MG/DL eGFR (2020 CKD-EPI) (test 122 ML/MIN/1.73 code = 80002) CALC BUN/CREAT (test code = 12 RATIO [...] code = 2219) 92 U/L CBC W/AUTO [id number] 00:00:00 Test Item Value Reference Range Interpretation [...] NUCLEATED RBCS (test code = 0.00 K/UL 08522) CBC W/AUTO [id number] 00:00:00 Test Item Value Reference Range Interpretation [...] NUCLEATED RBCS (test code = 0.00 K/UL 62466) HEMOGLOBIN [id number] 00:00:00 Test Item Value Reference Range Interpretation Comments HEMOGLOBIN A1c (test code = 85124) 6.0 % HEMOGLOBIN [id number] 00:00:00 Test Item Value Reference Range Interpretation Comments HEMOGLOBIN A1c (test code = 94376) 6.0 % HEMOGLOBIN [id number] 00:00:00 Test Item Value Reference Range Interpretation Comments HEMOGLOBIN A1c (test code = 23585) 6.0 % LIPID [id number] 00:00:00 Test Item Value Reference Range Interpretation Comments CHOLESTEROL (test code = 2210) 124 MG/DL TRIGLYCERIDES (test code = 2232) 69 MG/DL HDL CHOLESTEROL (test code = 2220) 39 MG/DL CALC LDL CHOL (test code = 2237) 70 MG/DL RISK RATIO LDL/HDL (test code = 1.79 RATIO 2238) LIPID [id number] 00:00:00 Test Item Value Reference Range Interpretation Comments CHOLESTEROL (test code = 2210) 124 MG/DL TRIGLYCERIDES (test code = 2232) 69 MG/DL HDL CHOLESTEROL (test code = 2220) 39 MG/DL CALC LDL CHOL (test code = 2237) 70 MG/DL RISK RATIO LDL/HDL (test code = 1.79 RATIO 2238) COMPREHENSIVE METABOLIC [id number] 00:00:00 Test Item Value Reference Range Interpretation Comments GLUCOSE (test code = 2217) 77 MG/DL BUN (test code = 2208) 8 MG/DL CREATININE (test code = 2214) 0.67 MG/DL eGFR (2020 CKD-EPI) (test 122 ML/MIN/1.73 code = 03614) CALC BUN/CREAT (test code = 12 RATIO [...] code = 2219) 92 U/L COMPREHENSIVE METABOLIC [id number] 00:00:00 Test Item Value Reference Range Interpretation Comments GLUCOSE (test code = 2217) 77 MG/DL BUN (test code = 2208) 8 MG/DL CREATININE (test code = 2214) 0.67 MG/DL eGFR (2020 CKD-EPI) (test 122 ML/MIN/1.73 code = 55740) CALC BUN/CREAT (test code = 12 RATIO [...] 2219) 92 U/L MR KNEE LEFT WO [id number] 21:23:01 Stable MRI with lateral patellar subluxation [...] study and agree with the [facility]report[facility] 2020[facility]16 13:46:56 Large effusion. No fracture. EXAM: XR KNEE 3 VW LEFT HISTORY: new onset of instablity left knee with 2 falls in last 4 wks COMPARISON: None FINDINGS: Imaging of the left knee demonstrates a moderate si zed effusion. Alignmentis maintained. There is mild depression of the medial tibial plateau on thePAview. No fracture is appreciated. [facility], Radiant Results Inft User - 03/16/2020 8:48 AM CDTEXAM:XR KNEE 3 VW LEFTHISTORY:new onset of instablity left knee with 2 falls in last 4 wks COMPARISON:NoneFINDINGS: Imaging of the left knee demonstrates a moderate sized effusion. Alignmentis maintained. There is mild depression of the medial tibial plateau on thePA view. No fracture is appreciated.IMPRESSIONLarge effusion.No fracture.[facility], [id number] 00:00:00 Test Item Value Reference Range Interpretation Comments HCG, QUANTITATIVE (test code = <5 MIU/ML 2506) HCG, [id number] 00:00:00 Test Item Value Reference Range Interpretation Comments HCG, QUANTITATIVE (test code = <5 MIU/ML 2506) HCG, [id number] 00:00:00 Test Item Value Reference Range Interpretation Comments HCG, QUANTITATIVE (test code = <5 MIU/ML 2506) HCG, [id number] 00:00:00 Test Item Value Reference Range Interpretation Comments HCG, QUANTITATIVE (test code = <5 MIU/ML 2506) HCG, [id number] 00:00:00 Test Item Value Reference Range Interpretation Comments HCG, QUANTITATIVE (test code = <5 MIU/ML 2506) HCG, [id number] 00:00:00 Test Item Value Reference Range Interpretation Comments HCG, QUANTITATIVE (test code = <5 MIU/ML 2506) HCG, [id number] 00:00:00 Test Item Value Reference Range Interpretation Comments HCG, QUANTITATIVE (test code = <5 MIU/ML 2506) HCG, [id number] 00:00:00 Test Item Value Reference Range Interpretation Comments HCG, QUANTITATIVE (test code = <5 MIU/ML 2506) HCG, [id number] 00:00:00 Test Item Value Reference Range Interpretation Comments HCG, QUANTITATIVE (test code = <5 MIU/ML 2506) HCG, [id number] 00:00:00 Test Item Value Reference Range Interpretation Comments HCG, QUANTITATIVE (test TEST NOT PERFORMED code = 2506) MIU/ML HCG, [id number] 00:00:00 Test Item Value Reference Range Interpretation Comments HCG, QUANTITATIVE (test TEST NOT PERFORMED code = 2506) MIU/ML HCG, [id number] 00:00:00 Test Item Value Reference Range Interpretation Comments HCG, QUANTITATIVE (test TEST NOT PERFORMED code = 2506) MIU/ML HCG, [id number] 00:00:00 Test Item Value Reference Range Interpretation Comments HCG, QUANTITATIVE (test TEST NOT PERFORMED code = 2506) MIU/ML HCG, [id number] 00:00:00 Test Item Value Reference Range Interpretation Comments HCG, QUANTITATIVE (test TEST NOT PERFORMED code = 2506) MIU/ML HCG, [id number] 00:00:00 Test Item Value Reference Range Interpretation Comments HCG, QUANTITATIVE (test TEST NOT PERFORMED code = 2506) MIU/ML HCG, [id number] 00:00:00 Test Item Value Reference Range Interpretation Comments HCG, QUANTITATIVE (test TEST NOT PERFORMED code = 2506) MIU/ML HCG, [id number] 00:00:00 Test Item Value Reference Range Interpretation Comments HCG, QUANTITATIVE (test TEST NOT PERFORMED code = 2506) MIU/ML HCG, [id number] 00:00:00 Test Item Value Reference Range Interpretation Comments HCG, QUANTITATIVE (test TEST NOT PERFORMED code = 2506) MIU/ML CHLAMYDIA, AMPLIFIED, [id number] 00:00:00 Test Item Value Reference Range Interpretation Comments CHLAMYDIA, TMA (test code = 84384) NEGATIVE CHLAMYDIA, AMPLIFIED, [id number] 00:00:00 Test Item Value Reference Range Interpretation Comments CHLAMYDIA, TMA (test code = 38233) NEGATIVE GC, AMPLIFIED, [id number] 00:00:00 Test Item Value Reference Range Interpretation Comments GONORRHEA, TMA (test code = 69440) NEGATIVE GC, AMPLIFIED, [id number] 00:00:00 Test Item Value Reference Range Interpretation Comments GONORRHEA, TMA (test code = 77741) NEGATIVE CHLAMYDIA, AMPLIFIED, [id number] 00:00:00 Test Item Value Reference Range Interpretation Comments CHLAMYDIA, TMA (test code = 57540) NEGATIVE CHLAMYDIA, AMPLIFIED, [id number] 00:00:00 Test Item Value Reference Range Interpretation Comments CHLAMYDIA, TMA (test code = 96570) NEGATIVE GC, AMPLIFIED, [id number] 00:00:00 Test Item Value Reference Range Interpretation Comments GONORRHEA, TMA (test code = 91960) NEGATIVE GC, AMPLIFIED, [id number] 00:00:00 Test Item Value Reference Range Interpretation Comments GONORRHEA, TMA (test code = 43566) NEGATIVE CHLAMYDIA, AMPLIFIED, [id number] 00:00:00 Test Item Value Reference Range Interpretation Comments CHLAMYDIA, TMA (test code = 89066) NEGATIVE CHLAMYDIA, AMPLIFIED, [id number] 00:00:00 Test Item Value Reference Range Interpretation Comments CHLAMYDIA, TMA (test code = 99039) NEGATIVE GC, AMPLIFIED, [id number] 00:00:00 Test Item Value Reference Range Interpretation Comments GONORRHEA, TMA (test code = 79337) NEGATIVE GC, AMPLIFIED, [id number] 00:00:00 Test Item Value Reference Range Interpretation Comments GONORRHEA, TMA (test code = 87316) NEGATIVE HIV AB/AG COMBO RFLX [id number] 00:00:00 Test Item Value Reference Range Interpretation Comments HIV 1/2 4TH GEN, RFLX CONF (test NON-REACTIVE code = 3514) HIV AB/AG COMBO RFLX [id number] 00:00:00 Test Item Value Reference Range Interpretation Comments HIV 1/2 4TH GEN, RFLX CONF (test NON-REACTIVE code = 3514) ACUTE HEPATITIS [id number] 00:00:00 Test Item Value Reference Range Interpretation Comments HEPATITIS A IgM (test code = NON-REACTIVE 02289) HEPATITIS B CORE IgM (test code NON-REACTIVE = 4644) HEPATITIS B SURF AG (test code = NON-REACTIVE 2739) HEPATITIS C ANTIBODY (test code NON-REACTIVE = 4675) INTERPRETATION HEPATITIS A: (NOTE) (test code = 2552) INTERPRETATION HEPATITIS B: (NOTE) (test code = 99148) INTERPRETATION HEPATITIS C: (NOTE) (test code = 65282) ACUTE HEPATITIS [id number] 00:00:00 Test Item Value Reference Range Interpretation Comments HEPATITIS A IgM (test code = NON-REACTIVE 26417) HEPATITIS B CORE IgM (test code NON-REACTIVE = 4644) HEPATITIS B SURF AG (test code = NON-REACTIVE 2739) HEPATITIS C ANTIBODY (test code NON-REACTIVE = 4675) INTERPRETATION HEPATITIS A: (NOTE) (test code = 2552) INTERPRETATION HEPATITIS B: (NOTE) (test code = 39750) INTERPRETATION HEPATITIS C: (NOTE) (test code = 11325) [id number] 00:00:00 Test Item Value Reference Range Interpretation Comments RPR RESULT (test code = NON-REACTIVE 3501) RPR TITER (test code = 3500) NOT INDIC. TITER [id number] 00:00:00 Test Item Value Reference Range Interpretation Comments RPR RESULT (test code = NON-REACTIVE 3501) RPR TITER (test code = 3500) NOT INDIC. TITER [id number] 00:00:00 Test Item Value Reference Range Interpretation Comments RPR RESULT (test code = NON-REACTIVE 3501) RPR TITER (test code = 3500) NOT INDIC. TITER HIV AB/AG COMBO RFLX [id number] 00:00:00 Test Item Value Reference Range Interpretation Comments HIV 1/2 4TH GEN, RFLX CONF (test NON-REACTIVE code = 3514) HIV AB/AG COMBO RFLX [id number] 00:00:00 Test Item Value Reference Range Interpretation Comments HIV 1/2 4TH GEN, RFLX CONF (test NON-REACTIVE code = 3514) HIV AB/AG COMBO RFLX [id number] 00:00:00 Test Item Value Reference Range Interpretation Comments HIV 1/2 4TH GEN, RFLX CONF (test NON-REACTIVE code = 3514) ACUTE HEPATITIS [id number] 00:00:00 Test Item Value Reference Range Interpretation Comments HEPATITIS A IgM (test code = NON-REACTIVE 41677) HEPATITIS B CORE IgM (test code NON-REACTIVE = 4644) HEPATITIS B SURF AG (test code = NON-REACTIVE 2739) HEPATITIS C ANTIBODY (test code NON-REACTIVE = 4675) INTERPRETATION HEPATITIS A: (NOTE) (test code = 2552) INTERPRETATION HEPATITIS B: (NOTE) (test code = 10214) INTERPRETATION HEPATITIS C: (NOTE) (test code = 10096) ACUTE HEPATITIS [id number] 00:00:00 Test Item Value Reference Range Interpretation Comments HEPATITIS A IgM (test code = NON-REACTIVE 19841) HEPATITIS B CORE IgM (test code NON-REACTIVE = 4644) HEPATITIS B SURF AG (test code = NON-REACTIVE 2739) HEPATITIS C ANTIBODY (test code NON-REACTIVE = 4675) INTERPRETATION HEPATITIS A: (NOTE) (test code = 2552) INTERPRETATION HEPATITIS B: (NOTE) (test code = 69521) INTERPRETATION HEPATITIS C: (NOTE) (test code = 53209) [id number] 00:00:00 Test Item Value Reference Range Interpretation Comments RPR RESULT (test code = NON-REACTIVE 3501) RPR TITER (test code = 3500) NOT INDIC. TITER [id number] 00:00:00 Test Item Value Reference Range Interpretation Comments RPR RESULT (test code = NON-REACTIVE 3501) RPR TITER (test code = 3500) NOT INDIC. TITER [id number] 00:00:00 Test Item Value Reference Range Interpretation Comments RPR RESULT (test code = NON-REACTIVE 3501) RPR TITER (test code = 3500) NOT INDIC. TITER HIV AB/AG COMBO RFLX [id number] 00:00:00 Test Item Value Reference Range Interpretation Comments HIV 1/2 4TH GEN, RFLX CONF (test NON-REACTIVE code = 3514) ACUTE HEPATITIS [id number] 00:00:00 Test Item Value Reference Range Interpretation Comments HEPATITIS A IgM (test code = NON-REACTIVE 27951) HEPATITIS B CORE IgM (test code NON-REACTIVE = 4644) HEPATITIS B SURF AG (test code = NON-REACTIVE 2739) HEPATITIS C ANTIBODY (test code NON-REACTIVE = 4675) INTERPRETATION HEPATITIS A: (NOTE) (test code = 2552) INTERPRETATION HEPATITIS B: (NOTE) (test code = 77681) INTERPRETATION HEPATITIS C: (NOTE) (test code = 75773) ACUTE HEPATITIS [id number] 00:00:00 Test Item Value Reference Range Interpretation Comments HEPATITIS A IgM (test code = NON-REACTIVE 92007) HEPATITIS B CORE IgM (test code NON-REACTIVE = 4644) HEPATITIS B SURF AG (test code = NON-REACTIVE 2739) HEPATITIS C ANTIBODY (test code NON-REACTIVE = 4675) INTERPRETATION HEPATITIS A: (NOTE) (test code = 2552) INTERPRETATION HEPATITIS B: (NOTE) (test code = 49722) INTERPRETATION HEPATITIS C: (NOTE) (test code = 51761) [id number] 00:00:00 Test Item Value Reference Range Interpretation Comments RPR RESULT (test code = NON-REACTIVE 3501) RPR TITER (test code = 3500) NOT INDIC. TITER [id number] 00:00:00 Test Item Value Reference Range Interpretation Comments RPR RESULT (test code = NON-REACTIVE 3501) RPR TITER (test code = 3500) NOT INDIC. TITER [id number] 00:00:00 Test Item Value Reference Range Interpretation Comments RPR RESULT (test code = NON-REACTIVE 3501) RPR TITER (test code = 3500) NOT INDIC. TITER HIV AB/AG COMBO RFLX [id number] 00:00:00 Test Item Value Reference Range Interpretation Comments HIV 1/2 4TH GEN, RFLX CONF (test NON-REACTIVE code = 3514) HIV AB/AG COMBO RFLX [id number] 00:00:00 Test Item Value Reference Range Interpretation Comments HIV 1/2 4TH GEN, RFLX CONF (test NON-REACTIVE code = 3514) ACUTE HEPATITIS [id number] 00:00:00 Test Item Value Reference Range Interpretation Comments HEPATITIS A IgM (test code = NON-REACTIVE 32323) HEPATITIS B CORE IgM (test code NON-REACTIVE = 4644) HEPATITIS B SURF AG (test code = NON-REACTIVE 2739) HEPATITIS C ANTIBODY (test code NON-REACTIVE = 4675) HCV INDEX (test code = 57301) 0.13 INTERPRETATION HEPATITIS A: (NOTE) (test code = 2552) INTERPRETATION HEPATITIS B: (NOTE) (test code = 43319) INTERPRETATION HEPATITIS C: (NOTE) (test code = 15715) ACUTE HEPATITIS [id number] 00:00:00 Test Item Value Reference Range Interpretation Comments HEPATITIS A IgM (test code = NON-REACTIVE 52117) HEPATITIS B CORE IgM (test code NON-REACTIVE = 4644) HEPATITIS B SURF AG (test code = NON-REACTIVE 2739) HEPATITIS C ANTIBODY (test code NON-REACTIVE = 4675) HCV INDEX (test code = 23796) 0.13 INTERPRETATION HEPATITIS A: (NOTE) (test code = 2552) INTERPRETATION HEPATITIS B: (NOTE) (test code = 89415) INTERPRETATION HEPATITIS C: (NOTE) (test code = 13374) GC AND CHLAMYDIA, AMPLIFIED, [id number] 00:00:00 Test Item Value Reference Range Interpretation Comments GONORRHEA, TMA (test code = 92609) NEGATIVE CHLAMYDIA, TMA (test code = 86337) NEGATIVE GC AND CHLAMYDIA, AMPLIFIED, [id number] 00:00:00 Test Item Value Reference Range Interpretation Comments GONORRHEA, TMA (test code = 83290) NEGATIVE CHLAMYDIA, TMA (test code = 87296) NEGATIVE [id number] 00:00:00 Test Item Value Reference Range Interpretation Comments RPR RESULT (test code = NON-REACTIVE 3501) RPR TITER (test code = 3500) NOT INDIC. TITER [id number] 00:00:00 Test Item Value Reference Range Interpretation Comments RPR RESULT (test code = NON-REACTIVE 3501) RPR TITER (test code = 3500) NOT INDIC. TITER [id number] 00:00:00 Test Item Value Reference Range Interpretation Comments RPR RESULT (test code = NON-REACTIVE 3501) RPR TITER (test code = 3500) NOT INDIC. TITER HIV AB/AG COMBO RFLX [id number] 00:00:00 Test Item Value Reference Range Interpretation Comments HIV 1/2 4TH GEN, RFLX CONF (test NON-REACTIVE code = 3514) HIV AB/AG COMBO RFLX [id number] 00:00:00 Test Item Value Reference Range Interpretation Comments HIV 1/2 4TH GEN, RFLX CONF (test NON-REACTIVE code = 3514) HIV AB/AG COMBO RFLX [id number] 00:00:00 Test Item Value Reference Range Interpretation Comments HIV 1/2 4TH GEN, RFLX CONF (test NON-REACTIVE code = 3514) ACUTE HEPATITIS [id number] 00:00:00 Test Item Value Reference Range Interpretation Comments HEPATITIS A IgM (test code = NON-REACTIVE 07935) HEPATITIS B CORE IgM (test code NON-REACTIVE = 4644) HEPATITIS B SURF AG (test code = NON-REACTIVE 2739) HEPATITIS C ANTIBODY (test code NON-REACTIVE = 4675) HCV INDEX (test code = 55627) 0.13 INTERPRETATION HEPATITIS A: (NOTE) (test code = 2552) INTERPRETATION HEPATITIS B: (NOTE) (test code = 42158) INTERPRETATION HEPATITIS C: (NOTE) (test code = 71151) ACUTE HEPATITIS [id number] 00:00:00 Test Item Value Reference Range Interpretation Comments HEPATITIS A IgM (test code = NON-REACTIVE 40995) HEPATITIS B CORE IgM (test code NON-REACTIVE = 4644) HEPATITIS B SURF AG (test code = NON-REACTIVE 2739) HEPATITIS C ANTIBODY (test code NON-REACTIVE = 4675) HCV INDEX (test code = 30853) 0.13 INTERPRETATION HEPATITIS A: (NOTE) (test code = 2552) INTERPRETATION HEPATITIS B: (NOTE) (test code = 52721) INTERPRETATION HEPATITIS C: (NOTE) (test code = 43616) HIV AB/AG COMBO RFLX [id number] 00:00:00 Test Item Value Reference Range Interpretation Comments HIV 1/2 4TH GEN, RFLX CONF (test NON-REACTIVE code = 3514) GC AND CHLAMYDIA, AMPLIFIED, [id number] 00:00:00 Test Item Value Reference Range Interpretation Comments GONORRHEA, TMA (test code = 16885) NEGATIVE CHLAMYDIA, TMA (test code = 26538) NEGATIVE GC AND CHLAMYDIA, AMPLIFIED, [id number] 00:00:00 Test Item Value Reference Range Interpretation Comments GONORRHEA, TMA (test code = 08993) NEGATIVE CHLAMYDIA, TMA (test code = 08697) NEGATIVE [id number] 00:00:00 Test Item Value Reference Range Interpretation Comments RPR RESULT (test code = NON-REACTIVE 3501) RPR TITER (test code = 3500) NOT INDIC. TITER [id number] 00:00:00 Test Item Value Reference Range Interpretation Comments RPR RESULT (test code = NON-REACTIVE 3501) RPR TITER (test code = 3500) NOT INDIC. TITER [id number] 00:00:00 Test Item Value Reference Range Interpretation Comments RPR RESULT (test code = NON-REACTIVE 3501) RPR TITER (test code = 3500) NOT INDIC. TITER ACUTE HEPATITIS [id number] 00:00:00 Test Item Value Reference Range Interpretation Comments HEPATITIS A IgM (test code = NON-REACTIVE 88609) HEPATITIS B CORE IgM (test code NON-REACTIVE = 4644) HEPATITIS B SURF AG (test code = NON-REACTIVE 2739) HEPATITIS C ANTIBODY (test code NON-REACTIVE = 4675) HCV INDEX (test code = 29824) 0.13 INTERPRETATION HEPATITIS A: (NOTE) (test code = 2552) INTERPRETATION HEPATITIS B: (NOTE) (test code = 79094) INTERPRETATION HEPATITIS C: (NOTE) (test code = 14444) ACUTE HEPATITIS [id number] 00:00:00 Test Item Value Reference Range Interpretation Comments HEPATITIS A IgM (test code = NON-REACTIVE 19833) HEPATITIS B CORE IgM (test code NON-REACTIVE = 4644) HEPATITIS B SURF AG (test code = NON-REACTIVE 2739) HEPATITIS C ANTIBODY (test code NON-REACTIVE = 4675) HCV INDEX (test code = 38222) 0.13 INTERPRETATION HEPATITIS A: (NOTE) (test code = 2552) INTERPRETATION HEPATITIS B: (NOTE) (test code = 35252) INTERPRETATION HEPATITIS C: (NOTE) (test code = 99976) GC AND CHLAMYDIA, AMPLIFIED, [id number] 00:00:00 Test Item Value Reference Range Interpretation Comments GONORRHEA, TMA (test code = 76356) NEGATIVE CHLAMYDIA, TMA (test code = 49366) NEGATIVE GC AND CHLAMYDIA, AMPLIFIED, [id number] 00:00:00 Test Item Value Reference Range Interpretation Comments GONORRHEA, TMA (test code = 32782) NEGATIVE CHLAMYDIA, TMA (test code = 51091) NEGATIVE [id number] 00:00:00 Test Item Value Reference Range Interpretation Comments RPR RESULT (test code = NON-REACTIVE 3501) RPR TITER (test code = 3500) NOT INDIC. TITER [id number] 00:00:00 Test Item Value Reference Range Interpretation Comments RPR RESULT (test code = NON-REACTIVE 3501) RPR TITER (test code = 3500) NOT INDIC. TITER [id number] 00:00:00 Test Item Value Reference Range Interpretation Comments RPR RESULT (test code = NON-REACTIVE 3501) RPR TITER (test code = 3500) NOT INDIC. TITER [id number] 00:00:00 Test Item Value Reference Range Interpretation Comments RPR RESULT (test code = NON-REACTIVE 3501) RPR TITER (test code = 3500) NOT INDIC. TITER [id number] 00:00:00 Test Item Value Reference Range Interpretation Comments RPR RESULT (test code = NON-REACTIVE 3501) RPR TITER (test code = 3500) NOT INDIC. TITER [id number] 00:00:00 Test Item Value Reference Range Interpretation Comments RPR RESULT (test code = NON-REACTIVE 3501) RPR TITER (test code = 3500) NOT INDIC. TITER HIV AB/AG COMBO RFLX [id number] 00:00:00 Test Item Value Reference Range Interpretation Comments HIV 1/2 4TH GEN, RFLX CONF (test NON-REACTIVE code = 3514) HIV AB/AG COMBO RFLX [id number] 00:00:00 Test Item Value Reference Range Interpretation Comments HIV 1/2 4TH GEN, RFLX CONF (test NON-REACTIVE code = 3514) [id number] 00:00:00 Test Item Value Reference Range Interpretation Comments RPR RESULT (test code = NON-REACTIVE 3501) RPR TITER (test code = 3500) NOT INDIC. TITER [id number] 00:00:00 Test Item Value Reference Range Interpretation Comments RPR RESULT (test code = NON-REACTIVE 3501) RPR TITER (test code = 3500) NOT INDIC. TITER [id number] 00:00:00 Test Item Value Reference Range Interpretation Comments RPR RESULT (test code = NON-REACTIVE 3501) RPR TITER (test code = 3500) NOT INDIC. TITER [id number] 00:00:00 Test Item Value Reference Range Interpretation Comments RPR RESULT (test code = NON-REACTIVE 3501) RPR TITER (test code = 3500) NOT INDIC. TITER HIV AB/AG COMBO RFLX [id number] 00:00:00 Test Item Value Reference Range Interpretation Comments HIV 1/2 4TH GEN, RFLX CONF (test NON-REACTIVE code = 3514) HIV AB/AG COMBO RFLX [id number] 00:00:00 Test Item Value Reference Range Interpretation Comments HIV 1/2 4TH GEN, RFLX CONF (test NON-REACTIVE code = 3514) [id number] 00:00:00 Test Item Value Reference Range Interpretation Comments RPR RESULT (test code = NON-REACTIVE 3501) RPR TITER (test code = 3500) NOT INDIC. TITER [id number] 00:00:00 Test Item Value Reference Range Interpretation Comments RPR RESULT (test code = NON-REACTIVE 3501) RPR TITER (test code = 3500) NOT INDIC. TITER HIV AB/AG COMBO RFLX [id number] 00:00:00 Test Item Value Reference Range Interpretation Comments HIV 1/2 4TH GEN, RFLX CONF (test NON-REACTIVE code = 3514) HIV AB/AG COMBO RFLX [id number] 00:00:00 Test Item Value Reference Range Interpretation Comments HIV 1/2 4TH GEN, RFLX CONF (test NON-REACTIVE code = 3514) GC AND CHLAMYDIA, AMPLIFIED, [id number] 00:00:00 Test Item Value Reference Range Interpretation Comments GONORRHEA, TMA (test code = 31067) NEGATIVE CHLAMYDIA, TMA (test code = 48219) NEGATIVE GC AND CHLAMYDIA, AMPLIFIED, [id number] 00:00:00 Test Item Value Reference Range Interpretation Comments GONORRHEA, TMA (test code = 14615) NEGATIVE CHLAMYDIA, TMA (test code = 02747) NEGATIVE GC AND CHLAMYDIA, AMPLIFIED, [id number] 00:00:00 Test Item Value Reference Range Interpretation Comments GONORRHEA, TMA (test code = 39646) NEGATIVE CHLAMYDIA, TMA (test code = 28986) NEGATIVE GC AND CHLAMYDIA, AMPLIFIED, [id number] 00:00:00 Test Item Value Reference Range Interpretation Comments GONORRHEA, TMA (test code = 87602) NEGATIVE CHLAMYDIA, TMA (test code = 22042) NEGATIVE GC AND CHLAMYDIA, AMPLIFIED, [id number] 00:00:00 Test Item Value Reference Range Interpretation Comments GONORRHEA, TMA (test code = 27027) NEGATIVE CHLAMYDIA, TMA (test code = 81111) NEGATIVE GC AND CHLAMYDIA, AMPLIFIED, [id number] 00:00:00 Test Item Value Reference Range Interpretation Comments GONORRHEA, TMA (test code = 49737) NEGATIVE CHLAMYDIA, TMA (test code = 90773) NEGATIVE COMPREHENSIVE METABOLIC [id number] 00:00:00 Test Item Value Reference Range Interpretation Comments GLUCOSE (test code = 2217) 127 MG/DL BUN (test code = 2208) 5 MG/DL CREATININE (test code = 2214) 0.58 MG/DL eGFR AMER. (test code 148 ML/MIN/1.73 = 16695) eGFR NON- AMER. (test 128 ML/MIN/1.73 code = 13950) CALC BUN/CREAT (test code = 9 RATIO [...] = 0.4 MG/DL 220) ALKALINE PHOSPHATASE (test 83 U/L code = 2204) AST (test code = 2218) 21 U/L ALT (test code = 2219) 18 U/L COMPREHENSIVE METABOLIC [id number] 00:00:00 Test Item Value Reference Range Interpretation Comments GLUCOSE (test code = 2217) 127 MG/DL BUN (test code = 2208) 5 MG/DL CREATININE (test code = 2214) 0.58 MG/DL eGFR AMER. (test code 148 ML/MIN/1.73 = 76741) eGFR NON- AMER. (test 128 ML/MIN/1.73 code = 89693) CALC BUN/CREAT (test code = 9 RATIO [...] (test code = 2219) 18 U/L LIPID [id number] 00:00:00 Test Item Value Reference Range Interpretation Comments CHOLESTEROL (test code = 2210) 186 MG/DL TRIGLYCERIDES (test code = 2232) 106 MG/DL HDL CHOLESTEROL (test code = 2220) 54 MG/DL CALC LDL CHOL (test code = 2237) 111 MG/DL RISK RATIO LDL/HDL (test code = 2.05 RATIO 2238) LIPID [id number] 00:00:00 Test Item Value Reference Range Interpretation Comments CHOLESTEROL (test code = 2210) 186 MG/DL TRIGLYCERIDES (test code = 2232) 106 MG/DL HDL CHOLESTEROL (test code = 2220) 54 MG/DL CALC LDL CHOL (test code = 2237) 111 MG/DL RISK RATIO LDL/HDL (test code = 2.05 RATIO 2238) COMPREHENSIVE METABOLIC [id number] 00:00:00 Test Item Value Reference Range Interpretation Comments GLUCOSE (test code = 2217) 127 MG/DL BUN (test code = 2208) 5 MG/DL CREATININE (test code = 2214) 0.58 MG/DL eGFR AMER. (test code 148 ML/MIN/1.73 = 19199) eGFR NON- AMER. (test 128 ML/MIN/1.73 code = 06622) CALC BUN/CREAT (test code = 9 RATIO [...] code = 2219) 18 U/L COMPREHENSIVE METABOLIC [id number] 00:00:00 Test Item Value Reference Range Interpretation Comments GLUCOSE (test code = 2217) 127 MG/DL BUN (test code = 2208) 5 MG/DL CREATININE (test code = 2214) 0.58 MG/DL eGFR AMER. (test code 148 ML/MIN/1.73 = 14010) eGFR NON- AMER. (test 128 ML/MIN/1.73 code = 23042) CALC BUN/CREAT (test code = 9 RATIO [...] code = 2219) 18 U/L COMPREHENSIVE METABOLIC [id number] 00:00:00 Test Item Value Reference Range Interpretation Comments GLUCOSE (test code = 221) 127 MG/DL BUN (test code = 2208) 5 MG/DL CREATININE (test code = 2214) 0.58 MG/DL eGFR AMER. (test code 148 ML/MIN/1.73 = 45036) eGFR NON- AMER. (test 128 ML/MIN/1.73 code = 25702) CALC BUN/CREAT (test code = 9 RATIO [...] (test code = 2219) 18 U/L LIPID [id number] 00:00:00 Test Item Value Reference Range Interpretation Comments CHOLESTEROL (test code = 2210) 186 MG/DL TRIGLYCERIDES (test code = 2232) 106 MG/DL HDL CHOLESTEROL (test code = 2220) 54 MG/DL CALC LDL CHOL (test code = 2237) 111 MG/DL RISK RATIO LDL/HDL (test code = 2.05 RATIO 2238) LIPID [id number] 00:00:00 Test Item Value Reference Range Interpretation Comments CHOLESTEROL (test code = 2210) 186 MG/DL TRIGLYCERIDES (test code = 2232) 106 MG/DL HDL CHOLESTEROL (test code = 2220) 54 MG/DL CALC LDL CHOL (test code = 2237) 111 MG/DL RISK RATIO LDL/HDL (test code = 2.05 RATIO 2238) COMPREHENSIVE METABOLIC [id number] 00:00:00 Test Item Value Reference Range Interpretation Comments GLUCOSE (test code = 2217) 127 MG/DL BUN (test code = 2208) 5 MG/DL CREATININE (test code = 2214) 0.58 MG/DL eGFR AMER. (test code 148 ML/MIN/1.73 = 66402) eGFR NON- AMER. (test 128 ML/MIN/1.73 code = 51139) CALC BUN/CREAT (test code = 9 RATIO [...] A/G RATIO (test code = 1.1 RATIO 4) BILIRUBIN, TOTAL (test code = 0.4 MG/DL 2206) ALKALINE PHOSPHATASE (test 83 U/L code = 2204) AST (test code = 2218) 21 U/L ALT (test code = 2219) 18 U/L LIPID [id number] 00:00:00 Test Item Value Reference Range Interpretation Comments CHOLESTEROL (test code = 2210) 186 MG/DL TRIGLYCERIDES (test code = 2232) 106 MG/DL HDL CHOLESTEROL (test code = 2220) 54 MG/DL CALC LDL CHOL (test code = 2237) 111 MG/DL RISK RATIO LDL/HDL (test code = 2.05 RATIO 2238) LIPID [id number] 00:00:00 Test Item Value Reference Range Interpretation Comments CHOLESTEROL (test code = 2210) 186 MG/DL TRIGLYCERIDES (test code = 2232) 106 MG/DL HDL CHOLESTEROL (test code = 2220) 54 MG/DL CALC LDL CHOL (test code = 2237) 111 MG/DL RISK RATIO LDL/HDL (test code = 2.05 RATIO 2238) GC AND CHLAMYDIA, AMPLIFIED, [id number] 00:00:00 Test Item Value Reference Range Interpretation Comments GONORRHEA, TMA (test code = 76447) NEGATIVE CHLAMYDIA, TMA (test code = 25993) NEGATIVE GC AND CHLAMYDIA, AMPLIFIED, [id number] 00:00:00 Test Item Value Reference Range Interpretation Comments GONORRHEA, TMA (test code = 04885) NEGATIVE CHLAMYDIA, TMA (test code = 83339) NEGATIVE GC AND CHLAMYDIA, AMPLIFIED, [id number] 00:00:00 Test Item Value Reference Range Interpretation Comments GONORRHEA, TMA (test code = 29470) NEGATIVE CHLAMYDIA, TMA (test code = 13734) NEGATIVE GC AND CHLAMYDIA, AMPLIFIED, [id number] 00:00:00 Test Item Value Reference Range Interpretation Comments GONORRHEA, TMA (test code = 89522) NEGATIVE CHLAMYDIA, TMA (test code = 80507) NEGATIVE GC AND CHLAMYDIA, AMPLIFIED, [id number] 00:00:00 Test Item Value Reference Range Interpretation Comments GONORRHEA, TMA (test code = 14128) NEGATIVE CHLAMYDIA, TMA (test code = 39699) NEGATIVE GC AND CHLAMYDIA, AMPLIFIED, [id number] 00:00:00 Test Item Value Reference Range Interpretation Comments GONORRHEA, TMA (test code = 61692) NEGATIVE CHLAMYDIA, TMA (test code = 46452) NEGATIVE VAGINAL PATHOGENS DNA [id number] 00:00:00 Test Item Value Reference Range Interpretation Comments YOKO SPECIES (test code = ) POSITIVE G. VAGINALIS (test code = 61147) NEGATIVE T. VAGINALIS (test code = ) NEGATIVE VAGINAL PATHOGENS DNA [id number] 00:00:00 Test Item Value Reference Range Interpretation Comments YOKO SPECIES (test code = ) POSITIVE G. VAGINALIS (test code = 02279) NEGATIVE T. VAGINALIS (test code = 18032) NEGATIVE VAGINAL PATHOGENS DNA [id number] 00:00:00 Test Item Value Reference Range Interpretation Comments YOKO SPECIES (test code = 00564) POSITIVE G. VAGINALIS (test code = 69823) NEGATIVE T. VAGINALIS (test code = 12815) NEGATIVE VAGINAL PATHOGENS DNA [id number] 00:00:00 Test Item Value Reference Range Interpretation Comments YOKO SPECIES (test code = 04453) POSITIVE G. VAGINALIS (test code = 38405) NEGATIVE T. VAGINALIS (test code = 18891) NEGATIVE VAGINAL PATHOGENS DNA [id number] 00:00:00 Test Item Value Reference Range Interpretation Comments YOKO SPECIES (test code = 44976) POSITIVE G. VAGINALIS (test code = 43334) NEGATIVE T. VAGINALIS (test code = 01498) NEGATIVE VAGINAL PATHOGENS DNA [id number] 00:00:00 Test Item Value Reference Range Interpretation Comments YOKO SPECIES (test code = 72090) POSITIVE G. VAGINALIS (test code = 05676) NEGATIVE T. VAGINALIS (test code = 00217) NEGATIVE GC AND CHLAMYDIA, AMPLIFIED, [id number] 00:00:00 Test Item Value Reference Range Interpretation Comments GONORRHEA, TMA (test code = 02515) NEGATIVE CHLAMYDIA, TMA (test code = 53195) NEGATIVE GC AND CHLAMYDIA, AMPLIFIED, [id number] 00:00:00 Test Item Value Reference Range Interpretation Comments GONORRHEA, TMA (test code = 61644) NEGATIVE CHLAMYDIA, TMA (test code = 73457) NEGATIVE GC AND CHLAMYDIA, AMPLIFIED, [id number] 00:00:00 Test Item Value Reference Range Interpretation Comments GONORRHEA, TMA (test code = 63865) NEGATIVE CHLAMYDIA, TMA (test code = 58388) NEGATIVE GC AND CHLAMYDIA, AMPLIFIED, [id number] 00:00:00 Test Item Value Reference Range Interpretation Comments GONORRHEA, TMA (test code = 27216) NEGATIVE CHLAMYDIA, TMA (test code = 85802) NEGATIVE GC AND CHLAMYDIA, AMPLIFIED, [id number] 00:00:00 Test Item Value Reference Range Interpretation Comments GONORRHEA, TMA (test code = 46685) NEGATIVE CHLAMYDIA, TMA (test code = 44826) NEGATIVE GC AND CHLAMYDIA, AMPLIFIED, [id number] 00:00:00 Test Item Value Reference Range Interpretation Comments GONORRHEA, TMA (test code = 22077) NEGATIVE CHLAMYDIA, TMA (test code = 16492) NEGATIVE CULTURE, [id number] 00:00:00 Test Item Value Reference Range Interpretation Comments CULTURE, URINE (test SPECIMEN NUMBER: code = 69542) [id number] CULTURE, [id number] 00:00:00 Test Item Value Reference Range Interpretation Comments CULTURE, URINE (test SPECIMEN NUMBER: code = 53890) [id number] CULTURE, [id number] 00:00:00 Test Item Value Reference Range Interpretation Comments CULTURE, URINE (test SPECIMEN NUMBER: code = 86357) [id number] CULTURE, [id number] 00:00:00 Test Item Value Reference Range Interpretation Comments CULTURE, URINE (test SPECIMEN NUMBER: code = 28965) [id number] CULTURE, [id number] 00:00:00 Test Item Value Reference Range Interpretation Comments CULTURE, URINE (test SPECIMEN NUMBER: code = 46587) [id number] CULTURE, [id number] 00:00:00 Test Item Value Reference Range Interpretation Comments CULTURE, URINE (test SPECIMEN NUMBER: code = 87758) [id number] HEMOGLOBIN [id number] 00:00:00 Test Item Value Reference Range Interpretation Comments HEMOGLOBIN A1c (test code = 67953) 5.5 % HEMOGLOBIN [id number] 00:00:00 Test Item Value Reference Range Interpretation Comments HEMOGLOBIN A1c (test code = 39886) 5.5 % HEMOGLOBIN [id number] 00:00:00 Test Item Value Reference Range Interpretation Comments HEMOGLOBIN A1c (test code = 32850) 5.5 % CBC W/AUTO [id number] 00:00:00 Test Item Value Reference Range Interpretation [...] code = 1015) 310 K/UL CBC W/AUTO [id number] 00:00:00 Test Item Value Reference Range Interpretation [...] code = 1015) 310 K/UL CBC W/AUTO [id number] 00:00:00 Test Item Value Reference Range Interpretation [...] code = 1015) 310 K/UL COMPREHENSIVE METABOLIC [id number] 00:00:00 Test Item Value Reference Range Interpretation Comments GLUCOSE (test code = 2217) 73 MG/DL BUN (test code = 2208) 10 MG/DL CREATININE (test code = 2214) 0.51 MG/DL eGFR AMER. (test code 158 ML/MIN/1.73 = 30434) eGFR NON- AMER. (test 136 ML/MIN/1.73 code = 82782) CALCULATED BUN/CREAT (test 20 RATIO code = [...] code = 2219) 23 U/L COMPREHENSIVE METABOLIC [id number] 00:00:00 Test Item Value Reference Range Interpretation Comments GLUCOSE (test code = 2217) 73 MG/DL BUN (test code = 2208) 10 MG/DL CREATININE (test code = 2214) 0.51 MG/DL eGFR AMER. (test code 158 ML/MIN/1.73 = 04597) eGFR NON- AMER. (test 136 ML/MIN/1.73 code = 19425) CALCULATED BUN/CREAT (test 20 RATIO code = [...] (test code = 2219) 23 U/L LIPID [id number] 00:00:00 Test Item Value Reference Range Interpretation Comments CHOLESTEROL (test code = 2210) 167 MG/DL TRIGLYCERIDES (test code = 2232) 109 MG/DL HDL CHOLESTEROL (test code = 2220) 58 MG/DL CALCULATED LDL CHOL (test code = 87 MG/DL 2237) RISK RATIO LDL/HDL (test code = 1.50 RATIO 2238) LIPID [id number] 00:00:00 Test Item Value Reference Range Interpretation [...] (test code = 2821) 1.5 UIU/ML HEMOGLOBIN [id number] 00:00:00 Test Item Value Reference Range Interpretation Comments HEMOGLOBIN A1c (test code = 34102) 5.5 % HEMOGLOBIN [id number] 00:00:00 Test Item Value Reference Range Interpretation Comments HEMOGLOBIN A1c (test code = 83763) 5.5 % HEMOGLOBIN [id number] 00:00:00 Test Item Value Reference Range Interpretation Comments HEMOGLOBIN A1c (test code = 76681) 5.5 % HEMOGLOBIN [id number] 00:00:00 Test Item Value Reference Range Interpretation Comments HEMOGLOBIN A1c (test code = 05778) 5.5 % HEMOGLOBIN [id number] 00:00:00 Test Item Value Reference Range Interpretation Comments HEMOGLOBIN A1c (test code = 90675) 5.5 % CBC W/AUTO [id number] 00:00:00 Test Item Value Reference Range Interpretation [...] code = 1015) 310 K/UL CBC W/AUTO [id number] 00:00:00 Test Item Value Reference Range Interpretation [...] code = 1015) 310 K/UL CBC W/AUTO [id number] 00:00:00 Test Item Value Reference Range Interpretation [...] code = 1015) 310 K/UL COMPREHENSIVE METABOLIC [id number] 00:00:00 Test Item Value Reference Range Interpretation Comments GLUCOSE (test code = 2217) 73 MG/DL BUN (test code = 2208) 10 MG/DL CREATININE (test code = 2214) 0.51 MG/DL eGFR AMER. (test code 158 ML/MIN/1.73 = 81182) eGFR NON- AMER. (test 136 ML/MIN/1.73 code = 01330) CALCULATED BUN/CREAT (test 20 RATIO code = [...] code = 2219) 23 U/L COMPREHENSIVE METABOLIC [id number] 00:00:00 Test Item Value Reference Range Interpretation Comments GLUCOSE (test code = 2217) 73 MG/DL BUN (test code = 2208) 10 MG/DL CREATININE (test code = 2214) 0.51 MG/DL eGFR AMER. (test code 158 ML/MIN/1.73 = 27067) eGFR NON- AMER. (test 136 ML/MIN/1.73 code = 69129) CALCULATED BUN/CREAT (test 20 RATIO code = [...] (test code = 2219) 23 U/L LIPID [id number] 00:00:00 Test Item Value Reference Range Interpretation Comments CHOLESTEROL (test code = 2210) 167 MG/DL TRIGLYCERIDES (test code = 2232) 109 MG/DL HDL CHOLESTEROL (test code = 2220) 58 MG/DL CALCULATED LDL CHOL (test code = 87 MG/DL 7) RISK RATIO LDL/HDL (test code = 1.50 RATIO 2238) LIPID [id number] 00:00:00 Test Item Value Reference Range Interpretation [...] CALCULATED T7 (FTI) (test code = 1.99 7680) TSH (test code = 2821) 1.5 UIU/ML HEMOGLOBIN [id number] 00:00:00 Test Item Value Reference Range Interpretation Comments HEMOGLOBIN A1c (test code = 62363) 5.5 % CBC W/AUTO [id number] 00:00:00 Test Item Value Reference Range Interpretation [...] code = 1015) 310 K/UL CBC W/AUTO [id number] 00:00:00 Test Item Value Reference Range Interpretation [...] code = 1015) 310 K/UL CBC W/AUTO [id number] 00:00:00 Test Item Value Reference Range Interpretation [...] code = 1015) 310 K/UL COMPREHENSIVE METABOLIC [id number] 00:00:00 Test Item Value Reference Range Interpretation Comments GLUCOSE (test code = 2217) 73 MG/DL BUN (test code = 2208) 10 MG/DL CREATININE (test code = 2214) 0.51 MG/DL eGFR AMER. (test code 158 ML/MIN/1.73 = 24307) eGFR NON- AMER. (test 136 ML/MIN/1.73 code = 72224) CALCULATED BUN/CREAT (test 20 RATIO code = [...] code = 2219) 23 U/L COMPREHENSIVE METABOLIC [id number] 00:00:00 Test Item Value Reference Range Interpretation Comments GLUCOSE (test code = 2217) 73 MG/DL BUN (test code = 2208) 10 MG/DL CREATININE (test code = 2214) 0.51 MG/DL eGFR AMER. (test code 158 ML/MIN/1.73 = 51422) eGFR NON- AMER. (test 136 ML/MIN/1.73 code = 45629) CALCULATED BUN/CREAT (test 20 RATIO code = 2235) SODIUM (test code = 2231) 136 MEQ/L POTASSIUM (test code = 2228) 4.1 MEQ/L CHLORIDE (test code = 2215) 102 MEQ/L CARBON DIOXIDE (test code = 21 MEQ/L 2205) CALCIUM (test code = 2209) 9.8 MG/DL PROTEIN, TOTAL (test code = 8.0 G/DL 2228) ALBUMIN (test code = 220) 4.3 G/DL CALCULATED GLOBULIN (test 3.7 G/DL code = 2240) CALCULATED A/G RATIO (test 1.2 RATIO code = 2234) BILIRUBIN, TOTAL (test code = 0.4 MG/DL 2206) ALKALINE PHOSPHATASE (test 54 U/L code = 2204) SGOT (AST) (test code = 2218) 21 U/L SGPT (ALT) (test code = 2219) 23 U/L LIPID [id number] 00:00:00 Test Item Value Reference Range Interpretation Comments CHOLESTEROL (test code = 2210) 167 MG/DL TRIGLYCERIDES (test code = 2232) 109 MG/DL HDL CHOLESTEROL (test code = 2220) 58 MG/DL CALCULATED LDL CHOL (test code = 87 MG/DL 2237) RISK RATIO LDL/HDL (test code = 1.50 RATIO 2238) LIPID [id number] 00:00:00 Test Item Value Reference Range Interpretation [...] Interpretation Comments T3 UPTAKE (test code = 281) 26.5 % T4 (THYROXINE) (test code = [...]
--- NOTE | 2023-02-05 11:10 | RAD REPORT ---
EXAM DESCRIPTION: RADChest Single View02/05/2023 10:34 am CLINICAL HISTORY: syncope COMPARISON: Chest Single View dated 12/25/2022; Chest Single View dated 10/13/2022; Chest Single View dated 10/10/2022; Chest Single View dated 12/08/2016 TECHNIQUE: Portable AP view of the chest. FINDINGS: The lungs are clear. Decreased inspiratory effort limits evaluation. No pneumothorax or ef fusion. The cardiomediastinal contours are unremarkable. IMPRESSION: No acute cardiopulmonary process.
--- NOTE | 2023-02-05 11:23 | RAD REPORT ---
EXAM DESCRIPTION: CT - CTHCSPWOC - 02/05/2023 10:57 am CLINICAL HISTORY: SYNCOPE COMPARISON: Head C Spine Mpr Wo Con dated 01/09/2023; Head C Spine Mpr Wo Con dated 12/08/2016; Chest Single View dated 02/05/2023 TECHNIQUE: Axial thin cut noncontrast CT images of the head were obtained. Axial thin cut noncontrast CT images of the cervical spine were obtained. Multiplanar reformatted images were generated and reviewed. All CT scans are performed using dose optimization technique as appropriate and may include automated exposure control or mA/KV adjustment according to patient size. FINDINGS: CT HEAD WITHOUT CONTRAST: No acute hemorrhage, hydrocephalus or extra-axial collection is identified.Partially sella again seen .No areas of brain edema or midline shift. The paranasal sinuses and mastoids are clear.The calvarium is intact. CT CERVICAL SPINE WITHOUT CONTRAST: No fracture or subluxation.No prevertebral soft tissues swelling is identified. IMPRESSION: No acute traumatic intracranial or cervical spine findings.
[2023-02-05 11:52] LABS: Absolute Lymphocytes (CBC) 1.9 K/uL (0.7-4.9); Hematocrit 35.4 % (36.0-45.0); Lymphocytes % 20.2 % (15.3-44.8); MCV 82.3 fL (80-100); MPV 7.9 fL (7.6-11.3)
[2023-02-05] MEDS ORDERED: NA CHLORIDE 0.9% 1,000 ML ONE (12:03)
[2023-02-05 12:09] LABS: BUN Blood Urea Nitrogen 10 mg/dL (7-18); Bicarbonate 24 mEq/L (21-32); Glomerular Filtration Rate 125 ml/min (=/>90); Glucose Level 91 mg/dL (74-106); Potassium 3.2 mEq/L (3.5-5.1); Sodium Level 139 mEq/L (136-145)
[2023-02-05 12:10] LABS: Troponin High Sensitivity < 3.0 pg/mL (<58.9)
--- NOTE | 2023-02-05 13:02 | ER ---
Nurse's Notes [facility] Name: Taylor Rodriguez Age: 27 yrs Sex: Female : 1995 Arrival Date: 02/05/2023 Time: 10:08 Bed 19 Private MD: Diagnosis: Syncope Presentation: 02/05 10:14 Chief complaint: EMS states: syncopal episode while walking out of clinic after having iw blood drawn , did not hit head, c/o pain all over , hx of fibromyalgia. Coronavirus screen: At this time, the client does not indicate any symptoms associated with coronavirus-19. Ebola Screen: Patient negative for fever greater than or equal to 101.5 degrees Fahrenheit, and additional compatible Ebola Virus Disease symptoms Patient denies exposure to infectious person. Patient denies travel to an Ebola-affected area in the 21 days before illness onset. No symptoms or risks identified at this time. Risk Assessment: Do you want to hurt yourself or someone else? Patient reports no desire to harm self or others. 10:14 Method Of Arrival: EMS: [facility] iw 10:14 Acuity: MILAN 3 iw 10:15 Initial Sepsis Screen: Does the patient meet any 2 criteria? No. Patient's initial iw sepsis screen is negative. Does the patient have a suspected source of infection? No. Patient's initial sepsis screen is negative. Onset of symptoms was February 05, 2023. Historical: - Allergies: 10:17 Naproxen; iw - PMHx: 10:17 Anxiety; Bipolar disorder; Depression; Fibromyalgia; Sleep Apnea; Chronic pain; High iw Blood Pressure; Schizophrenia; - Immunization history:: Client reports receiving the 2nd dose of the Covid vaccine. - Social history:: Smoking status: Patient denies any tobacco usage or history of. Screenin:15 [facility] ED Fall Risk Assessment (Adult) Score/Fall Risk Level 3 or more points = High eh3 Risk Oriented to surroundings, Maintained a safe environment, Educated pt \T\ family on fall prevention, incl call for assistance when getting out of bed, Assessed \T\ reinforced patient's understanding of fall precautions, Provided non-skid footwear, Hourly rounding (assess needs \T\ fall precautionary measures) done, Used ambulatory aids as needed (educated on \T\ assisted with), Utilized family, sitter, or virtual haul truck driver as indicated. Abuse screen: Denies threats or abuse. Denies injuries from another. Nutritional screening: No deficits noted. Tuberculosis screening: No symptoms or risk factors identified. Assessment: 10:15 General: Appears in no apparent distress. comfortable, Behavior is calm, cooperative. eh3 Pain: Denies pain. Neuro: Level of Consciousness is awake, alert, obeys commands, Oriented to person, place, time, situation. Neuro: Speech is normal. Cardiovascular: Capillary refill < 3 seconds Patient's skin is warm and dry. Rhythm is regular. Respiratory: Airway is patent Respiratory effort is even, unlabored, Respiratory pattern is regular, symmetrical. GI: Abdomen is round non-distended. : No signs and/or symptoms were reported regarding the genitourinary system. EENT: No signs and/or symptoms were reported regarding the EENT system. Derm: Skin is pink, warm \T\ dry. Musculoskeletal: Circulation, motion, and sensation intact. 11:00 Reassessment: Patient appears in no apparent distress at this time. Patient and/or 3 family updated on plan of care and expected duration. Pain level reassessed. Patient is alert, oriented x 3, equal unlabored respirations, skin warm/dry/pink. 12:00 Reassessment: Patient appears in no apparent distress at this time. Patient and/or 3 family updated on plan of care and expected duration. Pain level reassessed. Patient is alert, oriented x 3, equal unlabored respirations, skin warm/dry/pink. Vital Signs: 10:15 BP 107 / 44; Pulse 78; Resp 16; Temp 98.2; Pulse Ox 98% on R/A; Height 5 ft. 3 in. ; iw Pain 9/10; 10:32 BP 111 / 69; iw 11:00 BP 149 / 134; Pulse 75; Resp 20; Pulse Ox 99% on R/A; eh3 11:30 BP 156 / 104; Pulse 75; Resp 19; Pulse Ox 99% on R/A; eh3 12:00 BP 158 / 110; Pulse 73; Resp 15; Pulse Ox 99% on R/A; eh3 12:30 BP 127 / 112; Pulse 76; Resp 19; Pulse Ox 98% on R/A; eh3 10:15 Pain Scale: Adult ED Course: 10:10 Patient arrived in ED. 3 10:11 Stephen Tejeda DO is Attending Physician. ms3 10:12 Andrew Mcclure PA is PHCP. [facility] 10:15 Triage completed. iw 10:15 Tana Stanton, RN is Primary Nurse. eh3 10:15 Patient has correct armband on for positive identification. Bed in low position. Call eh3 light in reach. Side rails up X2. Adult w/ patient. Client placed on continuous cardiac and pulse oximetry monitoring. NIBP monitoring applied. Door closed. Noise minimized. 10:18 Arm band placed on. iw 10:33 Radiology exam delayed due to tech in with pt getting IV and labs. ls3 10:36 XRAY Chest (1 view) In Process Unspecified. EDMS 10:50 Basic Metabolic Panel Sent. zm 10:50 CBC with Diff Sent. zm 10:50 Troponin HS Sent. zm 10:58 CT Head C Spine In Process Unspecified. EDMS 11:15 Missed attempt(s): 22 gauge in right antecubital area. Bleeding controlled, band aid eh3 applied, catheter tip intact. 13:15 No provider procedures requiring assistance completed. Patient did not have IV access eh3 during this emergency room visit. Administered Medications: 13:14 Not Given (Physician Discretion): NS 0.9% IV 1000 ml IV at 1 bolus Per protocol; 1000 eh3 mL bolus Medication: 13:15 VIS not applicable for this client. eh3 Outcome: 13:01 Discharge ordered by . [facility] 13:15 Discharged to home via wheelchair, with family. eh3 13:15 Condition: stable 13:15 Discharge instructions given to patient, family, Instructed on discharge instructions, follow up and referral plans. Demonstrated understanding of instructions, follow-up care. 13:16 Patient left the ED. eh3 Signatures: Dispatcher [employer] EDMS Andrew Mcclure PA PA Yumiko Lombardi RN RN Mare Quijano 3 Stephen Tejeda DO DO ms3 Tana Stanton RN RN eh3 Cherelle Cheney Corrections: (The following items were deleted from the chart) 10:18 10:15 Pulse 78bpm; Resp 16bpm; Pulse Ox 98% RA; Temp 98.2F; Height 5 ft. 3 in.; Pain iw 05/10, Adult; iw 11:01 11:01 Tana Stanton RN is Primary Nurse. eh3 eh3
--- NOTE | 2023-02-05 13:02 | EDPHYS ---
Physician Documentation [facility] Name: Taylor Rodriguez Age: 27 yrs Sex: Female : 1995 Arrival Date: 02/05/2023 Time: 10:08 Bed 19 Private MD: ED Physician Stephen Tejeda Historical: - Allergies: 02/05 10:17 Naproxen; iw - PMHx: 10:17 Anxiety; Bipolar disorder; Depression; Fibromyalgia; Sleep Apnea; Chronic pain; High iw Blood Pressure; Schizophrenia; - Immunization history:: Client reports receiving the 2nd dose of the Covid vaccine. - Social history:: Smoking status: Patient denies any tobacco usage or history of. Vital Signs: 10:15 BP 107 / 44; Pulse 78; Resp 16; Temp 98.2; Pulse Ox 98% on R/A; Height 5 ft. 3 in. ; iw Pain 9/10; 10:32 BP 111 / 69; iw 11:00 BP 149 / 134; Pulse 75; Resp 20; Pulse Ox 99% on R/A; eh3 11:30 BP 156 / 104; Pulse 75; Resp 19; Pulse Ox 99% on R/A; eh3 12:00 BP 158 / 110; Pulse 73; Resp 15; Pulse Ox 99% on R/A; eh3 12:30 BP 127 / 112; Pulse 76; Resp 19; Pulse Ox 98% on R/A; eh3 10:15 Pain Scale: Adult iw MDM: 10:12 Patient medically screened. [facility] 02/05 10:14 Order name: Basic Metabolic Panel; Complete Time: 12:11 [facility] 02/05 10:14 Order name: CBC with Diff [facility] 02/05 10:14 Order name: Troponin HS; Complete Time: 12:11 [facility] 02/05 11:56 Order name: Manual Differential [facility] 02/05 10:14 Order name: XRAY Chest (1 view); Complete Time: 11:25 [facility] 02/05 10:14 Order name: CT Head C Spine; Complete Time: 11:25 [facility] 02/05 10:14 Order name: EKG; Complete Time: 10:14 [facility] 02/05 10:14 Order name: Cardiac monitoring; Complete Time: 11:02 [facility] 02/05 10:14 Order name: EKG - Nurse/Tech; Complete Time: 10:32 [facility] 02/05 10:14 Order name: Labs collected and sent; Complete Time: 10:50 [facility] 02/05 10:14 Order name: O2 Per Protocol; Complete Time: : [facility] 02/05 10:14 Order name: O2 Sat Monitoring; Complete Time: : [facility] 02/05 11:06 Order name: Labs - recollect needed; Complete Time: 12:38 em1 Administered Medications: 13:14 Not Given (Physician Discretion): NS 0.9% IV 1000 ml IV at 1 bolus Per protocol; 1000 eh3 mL bolus Disposition Summary: 02/05/23 13:01 Discharge Ordered Location: Home [facility] Condition: Stable [facility] Diagnosis - Syncope [facility] Followup: [facility] - With: Private Physician - When: 2 - 3 days - Reason: Recheck today's complaints, Continuance of care, Re-evaluation by your physician Discharge Instructions: - Discharge Summary Sheet [facility] - Syncope [facility] Forms: - Medication Reconciliation Form [facility] - Thank You Letter [facility] - Antibiotic Education [facility] - Prescription Opioid Use [facility] Signatures: Dispatcher [employer] EDAndrew Nix PA PA jmm Williams, Irene, RN Min Humphries em1 Tana Stanton RN eh3
--- NOTE | 2023-02-05 13:25 | EKG ---
Test Date: 2023-02-05 Test Time: 10:25:47 Senior Nuclear Medicine Technologist: CARITO MEASUREMENT RESULTS: Intervals: Rate: 75 MI: 178 QRSD: 88 QT: 390 QTc: 435 [place]: P: 28 MI: 178 QRS: 5 T: 0 INTERPRETIVE STATEMENTS: Normal sinus rhythm Normal ECG Compared to ECG 01/09/2023 18:17:01 No significant changes Electronically Signed On 02-05-23 13:24:46 CDT by Parmjit Yepez
[2023-02-05 14:09] VITALS: TEMP 98.2
[2023-02-05 14:18] VITALS: BP 127/112; O2SAT 98
[2023-02-05 14:35] LABS: Blood Morphology Comment NOT SEEN (NOT SEEN); Platelet Estimate ADEQ
== END 2023-02-05 13:16 | disposition home or self-care (01) ==
LOC: ER 10:08
DX: R55 Syncope and collapse (principal); F20.9 Schizophrenia, unspecified; Z88.6 Allergy status to analgesic agent
CPT/HCPCS: 93005; 85025; 80048; 36415; 84484; 70450; 72125; 71045; 99284; J7030

== ENCOUNTER 2023-02-05 20:10 | Emergency (ER) | payer OTHER ==
--- OUTSIDE RECORDS SUMMARY | 2023-02-05 20:32 | XMS REPORT | Continuity of Care Document ---
:1995 Author Organization [facility] t Address [address] [place] [address] Care Team Providers Name Role Phone Roman YOUNG, [facility] Primary Care Physician [phone] DARLIN VICK Attending Clinician Unavailable SPENSER STOKES Attending Clinician Unavailable GAURAV PURVIS Attending Clinician Unavailable KEYONNA BRIONES Attending Clinician Unavailable LAB90 Attending Clinician Unavailable BYRON MALHOTRA Attending Clinician Unavailable OLENA TREVIÑO Attending Clinician Unavailable ROBYN GARY Attending Clinician Unavailable JAROD MOMIN Attending Clinician Unavailable PLABPA Attending Clinician Unavailable JENNIFER BYNUM Attending Clinician Unavailable JALYN CRUZ Attending Clinician Unavailable MD ARAVIND Attending Clinician Unavailable MANOLO MARTINEZ Attending Clinician Unavailable PATGAUTAM WINCHESTER Attending Clinician Unavailable PL, TECH 1 Attending Clinician Unavailable LAB47 Attending Clinician Unavailable MARIANO Attending Clinician Unavailable ANNEMARIE GRAFF Attending Clinician Unavailable Sandy EDWARDS, Alexandre Attending Clinician SHEY BIANCHI Attending Clinician Unavailable Doctor Unassigned, [place] Attending Clinician Unavailable Shey Bianchi MD Attending Clinician ALEXANDRE DELGADO Attending Clinician Unavailable James Sosa MD Attending Clinician Care, [facility] Attending Clinician Unavailable ILIANA LAMAR Attending Clinician Unavailable Annemarie Alexander Attending Clinician Dannie Botello MD Attending Clinician DANNIE BOTELLO Attending Clinician Unavailable MARIANO Admitting Clinician Unavailable ALEXANDRE DELGADO Admitting Clinician Unavailable Payers Payer Name Policy Type Policy Number Effective Date Expiration Date [facility] AETNA SILVER: 9 [id number] 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 9-14 ity of 00:00: [place] 00 Medical Branch Manic Manic Disease Active [...] Active Univers ALLERGIE Class ity of [address] [facility] Social History Social Habit Start Date Stop Date Quantity Comments Source Gender identity 2022-09-04 Identifies as Jelena Ibrahim - 10:33:35 male gender External (finding) Sexual orientation 2022-09-04 Jelena Eatonold - 10:33:35 External Exposure to Not sure University of SARS-CoV-2 (event) [place] [facility] History of tobacco Cigarette Smoker Jelena Ibrahim - use External History SDOH Jelena Ashley ld - Alcohol Frequency Externa l History SDOH Jelena Ashley ld - Alcohol Std Drinks 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 al History SDOH Jelena Ashley ld - Alcohol Binge External Alcohol intake 2023-01-28 2023-01-28 Current drinker Beth Eatonold - 00:00:00 00:00:00 of alcohol External (finding) History of Social 2022-12-22 2022-12-22 Jelena Guevaraybold - function 00:00:00 00:00:00 External Tobacco use and 2022-12-22 2022-12-22 Smokeless tobacco Ke sveta Guevaraybold - exposure 00:00:00 00:00:00 non-user External Alcohol Comment 2022-09-09 2022-09-09 rare Jelenalit henley - 00:00:00 00:00:00 External Tobacco Comment 2019-08-16 2019-08-16 Quit Universit y of 00:00:00 00:00:00 smoking/vaping [facility] this year Branch Sex Ass[birth year] At [birth year] F Jelena henley - 00:00:00 00:00:00 External Smoking Status Start Date Stop Date Source Occasional tobacco 2022-12-22 00:00:00 Jelena Guevara kale - smoker External Never smoked tobacco Jelena Eaton old - External Former smoker 2020-09-07 00:00:00 2020-09-07 [facility] 00:00:00 Medical Branch Medications Ordered Filled Start Stop Current Ordering Indication Dosage Frequency Signature Comments Components Source Medication Medication Date Date Medication? Clinician (SIG) Name Name Metoclopram Yes 10mg Take 1 Ashlie ey jonathan HCl 5-31 tablet (10 Seybol d (Reglan) 10 10:58: mg total) - MG oral 34 by mouth 4 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 a Tablet times l daily Dicyclomine Yes 20mg Take 1 Ashlie ey HCl 20 MG 5-31 tablet (20 Seyb old oral Tablet 10:58: mg total) - 34 by mouth Externa every 6 l (six) hours Cyanocobala Yes Take by Emanuel sey min 5-31 mouth Seybold (VITAMIN B 10:55: - 12 OR) 58 Externa l Topiramate Yes Topamax Ashlie ey (Topamax) 5-31 25mg Start Seyb old 25 MG oral 00:00: 1 po qd x - Tablet 00 3 days, 1 Externa po q 12 l hrs x 3 days, then 2 po q 12 hrs, Meclizine 0 Yes [id number] TAKE ONE Jelena HCl 25 MG 5-22 (1) Seybold oral Tablet 00:00: TABLET(S) - 00 BY MOUTH Externa THREE l TIMES A DAY NEEDED. Losartan 0 Yes [id number] 1{tbl} Take 1 K elsey Potassium-H 5-15 tablet by Lit bold CTZ 50-12.5 00:00: mouth - MG oral 00 daily Externa Tablet l Gabapentin 0 Yes [id number] 100mg Take 1 Jelena 100 MG oral 5-15 capsule Seybo ld Capsule 00:00: (100 mg - 00 total) by Externa mouth 3 l times daily Trazodone 2022-0 2022- No [id number] 100mg Take 1 Jelena HCl 100 MG 5-01 05-01 tablet Seybol d oral Tablet 11:10: 00:00 (100 mg - 14 :00 total) by Externa mouth at l bedtime Cyanocobala Yes Take by Emanuel sey min 5-01 mouth Seybold (VITAMIN B 09:56: - 12 OR) 28 Externa l Tramadol 0 Yes [id number] 50mg Q.25D Take 1 K elsey HCl 5-01 tablet (50 Seybold (ULTRAM) 50 00:00: mg total) - MG oral 00 by mouth Externa Tablet every 6 l hours as needed for pain Tramadol 2022-0 Yes [id number] 50mg Q.25D Take 1 K elsey HCl 5-01 tablet (50 Seybold (ULTRAM) 50 00:00: mg total) - MG oral 00 by mouth Externa Tablet every 6 l hours as needed for pain hydrOXYzine 2022-0 Yes Jelena HCl 25 MG 4-26 Seybold oral Tablet 00:00: - 00 Externa l hydrOXYzine 2022-0 Yes Jleena HCl 25 MG 4-26 Seybold oral Tablet 00:00: - 00 Externa l Trazodone 2022-0 Yes [id number] 100mg Take 1 K elsey HCl 100 MG 4-24 tablet Seybold oral Tablet 08:55: (100 mg - 22 total) by Externa mouth at l bedtime Cyanocobala 2022-0 Yes Take by Emanuel sey min 4-24 mouth Seybold (VITAMIN B 08:55: - 12 OR) 22 Externa l Albuterol 2022-0 Yes [id number] 2{puff} Q.25D Inhale 2 Jelena HFA 108 (90 4-24 puffs into Se [employer]) 00:00: the lungs - MCG/ACT IN 00 every 6 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 Albuterol 2022-0 Yes [id number] 2{puff} Q.25D Inhale 2 Jelena HFA 108 (90 4-24 puffs into Se [employer]) 00:00: the lungs - MCG/ACT IN 00 every 6 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 a AERS hours as l needed for wheezing or shortness of breath Albuterol 2022-0 Yes [id number] 2{puff} Q.25D Inhale 2 Jelena HFA 108 (90 4-24 puffs into Se [employer]) 00:00: the lungs - MCG/ACT IN 00 every 6 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 a AERS hours as l needed for wheezing or shortness of breath Cyclobenzap 2023-0 Yes 10mg Q.[id number] Take 1 Jelena rine HCl 10 4-22 [id number] tablet (10 Seybold MG oral 00:00: 3D mg total) - Tablet 00 by mouth Externa every 8 l hours as needed Cyclobenzap 2023-0 Yes 10mg Q.[id number] Take 1 Jelena rine HCl 10 4-22 [id number] tablet (10 Seybold MG oral 00:00: 3D mg total) - Tablet 00 by mouth Externa every 8 l hours as needed Cyclobenzap 0 Yes 10mg Q.[id number] Take 1 Jelena rine HCl 10 - [id number] tablet (10 Seybold MG oral 00:00: 3D mg total) - Tablet 00 by mouth Externa every 8 l hours as needed Gabapentin 2022-0 Yes [id number] 100mg Take 1 Jelena 100 MG oral 4-20 capsule Seybo ld Capsule 00:00: (100 mg - 00 total) by Externa mouth 3 l times daily Gabapentin 2022-0 Yes [id number] 100mg Take 1 Jelena 100 MG oral [...] Externa at bedtime l Trazodone 2022-0 Yes [id number] 100mg Take 1 K elsey HCl 100 MG 4-13 tablet Seybold oral Tablet 10:58: (100 mg - 09 total) by Externa mouth at l bedtime Cyanocobala 0 Yes Take by Emanuel sey min 4-13 mouth Seybold (VITAMIN B 10:58: - 12 OR) 09 Externa l Trazodone 2022-0 Yes [id number] 100mg Take 1 K elsey HCl 100 MG 4-10 tablet Seybold oral Tablet 11:00: (100 mg - 07 total) by Externa mouth at l bedtime Cyanocobala 2022-0 Yes Take by Emanuel sey min 4-10 mouth Seybold (VITAMIN B 11:00: - 12 OR) 07 Externa l Propranolol 2022-0 Yes [id number] TAKE ONE Jelena HCl 10 MG 4-10 (1) Seybold oral Tablet 00:00: TABLET(S) - 00 BY MOUTH Externa THREE l TIMES A DAY. Propranolol 2023-0 Yes [id number] TAKE ONE Jelena HCl 10 MG 4-10 [...] Release daily as needed Propranolol 2023-0 Yes [id number] TAKE ONE Jelena HCl 10 MG 4-10 [...] Release daily as needed Propranolol 2023-0 Yes [id number] TAKE ONE Jelena HCl 10 MG 4-10 [...] Release daily as needed Meloxicam 2023-0 Yes [id number] 15mg Take 1 Jelena 15 MG oral 4-06 tablet (15 Sey bold Tablet 00:00: mg total) - 00 by mouth Externa daily l Meloxicam 2023-0 Yes [id number] 15mg Take 1 Jelena 15 MG oral 4-06 tablet (15 Sey bold Tablet 00:00: mg total) - 00 by mouth Externa daily l Meloxicam 2023-0 Yes [id number] 15mg Take 1 Jelena 15 MG oral 4-06 tablet (15 Sey bold Tablet 00:00: mg total) - 00 by mouth Externa daily l Meloxicam 2023-0 Yes [id number] 15mg Take 1 Jelena 15 MG oral 4-06 tablet (15 Sey bold Tablet 00:00: mg total) - 00 by mouth Externa daily l Meloxicam 3-0 Yes [id number] 15mg Take 1 Jelena 15 MG oral [...] mouth l every morning Meclizine 3-0 Yes [id number] TAKE ONE Jelena HCl 25 MG 3-24 (1) Seybold oral Tablet 00:00: TABLET(S) - 00 BY MOUTH Externa THREE l TIMES A DAY NEEDED. Meclizine 2023-0 Yes [id number] TAKE ONE Jelena HCl 25 MG 3-24 (1) Seybold oral Tablet 00:00: TABLET(S) - 00 BY MOUTH Externa THREE l TIMES A DAY NEEDED. Meclizine 2023-0 Yes [id number] TAKE ONE Jelena HCl 25 MG 3-24 (1) Seybold oral Tablet 00:00: TABLET(S) - 00 BY MOUTH Externa THREE l TIMES A DAY NEEDED. Losartan 3-0 Yes [id number] 1{tbl} Take 1 K elsey Potassium-H 3-22 tablet by Sey bold CTZ 50-12.5 00:00: mouth - MG oral 00 daily Externa Tablet l Losartan 2023-0 Yes [id number] 1{tbl} Take 1 K elsey Potassium-H 3-22 tablet by Sey bold CTZ 50-12.5 00:00: mouth - MG oral 00 daily Externa Tablet l Losartan 2023-0 Yes [id number] 1{tbl} Take 1 K elsey Potassium-H 3-22 tablet by Sey bold CTZ 50-12.5 00:00: mouth - MG oral 00 daily Externa Tablet l Losartan 2022-0 Yes [id number] 1{tbl} Take 1 K elsey Potassium-H 3-22 tablet by Lit bold CTZ 50-12.5 00:00: mouth - MG oral 00 daily Externa Tablet l Propranolol 3-0 2023- No [id number] TAKE ONE Jelena HCl 10 MG 3-10 04-10 (1) Seybold oral Tablet 00:00: 00:00 TABLET(S) - 00 :00 BY MOUTH Externa THREE l TIMES A DAY. Cholecalcif 2022-0 2022- No [id number] 15495I Take 1 Jelena juan 1.25 3-02 04-10 capsule Seybol d MG ([id number] 00:00: 00:00 (50,000 - UT) oral 00 :00 units Externa Capsule total) by l mouth twice a week for 8 doses Trazodone 2022-0 Yes [id number] 100mg Take 100 Jelena HCl 100 MG [...] A l DAY. hydrOXYzine 2023-0 Yes 50mg Q.[id number] Take 1 Jelena HCl 50 MG 2-13 [id number] tablet (50 Seybold oral Tablet 00:00: 3D mg total) - 00 by mouth Externa every 8 l hours as needed hydrOXYzine 2023-0 Yes 50mg Q.[id number] Take 1 Jelena HCl 50 MG 2-13 [id number] tablet (50 Seybold oral Tablet 00:00: 3D mg total) - 00 by mouth Externa every 8 l hours as needed hydrOXYzine 2023-0 Yes 50mg Q.[id number] Take 1 Jelena HCl 50 MG 2-13 [id number] tablet (50 Seybold oral Tablet 00:00: 3D mg total) - 00 by mouth Externa every 8 l hours as needed Losartan 2023-0 Yes [id number] 1{tbl} Take 1 K elsey Potassium-H 2-10 tablet by Sey bold CTZ 50-12.5 00:00: mouth - MG oral 00 daily Externa Tablet l Meclizine 2023-0 Yes [id number] 25mg Q.[id number] Take 1 Jelena HCl 25 MG 2-10 [id number] tablet (25 Seybold oral Tablet 00:00: 3D mg total) - 00 by mouth 3 Externa times l daily as needed Propranolol 2023-0 Yes [id number] 10mg Take 1 Jelena HCl 10 MG 2-10 tablet (10 Seyb old oral Tablet 00:00: mg total) - 00 by mouth 3 Externa times l daily Losartan 2023-0 Yes [id number] 1{tbl} Take 1 K elsey Potassium-H 2-10 tablet by Sey bold CTZ 50-12.5 00:00: mouth - MG oral 00 daily Externa Tablet l Meclizine 2023-0 Yes [id number] 25mg Q.[id number] Take 1 Jelena HCl 25 MG 2-10 [id number] tablet (25 Seybold oral Tablet 00:00: 3D mg total) - 00 by mouth 3 Externa times l daily as needed Propranolol Yes [id number] 10mg Take 1 Jelena HCl 10 MG 2-10 tablet (10 Seyb old oral Tablet 00:00: mg total) - 00 by mouth 3 Externa times l daily Doxycycline Yes [id number] 100mg Take 1 Jelena Hyclate 100 1-31 tablet Seybol d MG oral 00:00: (100 mg - Tablet 00 total) by Externa mouth 2 l times daily Doxycycline 2022- No [id number] 100mg Take 1 Jelena Hyclate 100 1-31 02-28 tablet Seybo ld MG oral 00:00: 00:00 (100 mg - Tablet 00 :00 total) by Externa mouth 2 l times daily Trulicity Yes [id number] .75mg Inject Jelena 0.75 1-28 0.75 mg Seybold MG/0.5ML 00:00: into the - subcutaneou 00 skin once Ext jonathan s Solution a week l Pen-injecto r Trulicity Yes [id number] .75mg Inject Jelena 0.75 1-28 0.75 mg Seybold MG/0.5ML 00:00: into the - subcutaneou 00 skin once Ext jonathan s Solution a week l Pen-injecto r Trulicity Yes [id number] .75mg Inject Jelena 0.75 1-28 0.75 mg Seybold MG/0.5ML 00:00: into the - subcutaneou 00 skin once Ext jonathan s Solution a week l Pen-injecto r Trulicity Yes [id number] .75mg Inject Jelena 0.75 1-28 0.75 mg Seybold MG/0.5ML 00:00: into the - subcutaneou 00 skin once Ext jonathan s Solution a week l Pen-injecto r Aripiprazol 2022- No Kelse y e 20 MG 1-25 01-25 Seybold oral Tablet 11:11: 00:00 - 39 :00 Externa l Aripiprazol 2022- No [id number] 10mg Take 10 mg Jelena e 10 MG 1-25 -25 by mouth 2 Seybo ld oral Tablet 11:11: 00:00 times - 26 :00 daily Externa l Trazodone 2022-0 Yes [id number] 100mg Take 100 Jelena HCl 100 MG 1-25 mg by Seybold oral Tablet 10:31: mouth at - 22 bedtime Externa l Cyanocobala Yes Take by Emanuel sey min 1-25 mouth Seybold (VITAMIN B 10:31: - 12 OR) 22 Externa l Trazodone Yes [id number] 100mg Take 100 Jelena HCl 100 MG 1-25 mg by Seybold oral Tablet 10:31: mouth at - 22 bedtime Externa l Cyanocobala Yes Take by Emanuel sey min 1-25 mouth Seybold (VITAMIN B 10:31: - 12 OR) 22 Externa l hydroCHLORO 0 Yes [id number] 12.5mg Take 1 Jelena thiazide 1-25 capsule Seybold 12.5 MG 00:00: (12.5 mg - oral 00 total) by Externa Capsule mouth l daily Ondansetron 2022- Yes [id number] 4mg Q.[id number] Take 1 Jelena (ZOFRAN) 4 1-25 [id number] tablet (4 Seybold MG oral 00:00: 3D mg total) - TABLET 00 by mouth Externa DISPERSIBLE every 8 l hours as needed for nausea Tirzepatide 2022-0 Yes [id number] 2.5mg Inject 0.5 Jelena (Mounjaro) 1-25 mL (2.5 mg Sey bold 2.5 00:00: total) - MG/0.5ML 00 into the Externa subcutaneou skin once l s Solution a week Pen-injecto r Celecoxib 2022-0 Yes [id number] 200mg Take 1 Jelena (CeleBREX) 1-25 capsule Seybol d 200 MG oral 00:00: (200 mg - Capsule 00 total) by Externa mouth 2 l times daily Gabapentin 2022-0 Yes [id number] 100mg Take 1 Jelena 100 MG oral 1-25 capsule Seybo ld Capsule 00:00: (100 mg - 00 total) by Externa mouth 3 l times daily Ondansetron 2023-0 Yes [id number] 4mg Q.[id number] Take 1 Jelena (ZOFRAN) 4 1-25 [id number] tablet (4 Seybold MG oral 00:00: 3D mg total) - TABLET 00 by mouth Externa DISPERSIBLE every 8 l hours as needed for nausea Celecoxib 3-0 Yes [id number] 200mg Take 1 Jelena (CeleBREX) 1-25 capsule Seybol d 200 MG oral 00:00: (200 mg - Capsule 00 total) by Externa mouth 2 l times daily Gabapentin 3-0 Yes [id number] 100mg Take 1 Jelena 100 MG oral 1-25 capsule Seybo ld Capsule 00:00: (100 mg - 00 total) by Externa mouth 3 l times daily Ondansetron 2022-0 Yes [id number] 4mg Q.[id number] Take 1 Jelena (ZOFRAN) 4 1-25 [id number] tablet (4 Seybold MG oral 00:00: 3D mg total) - TABLET 00 by mouth Externa DISPERSIBLE every 8 l hours as needed for nausea Celecoxib 3-0 Yes [id number] 200mg Take 1 Jelena (CeleBREX) 1-25 capsule Seybol d 200 MG oral 00:00: (200 mg - Capsule 00 total) by Externa mouth 2 l times daily Gabapentin 3-0 Yes [id number] 100mg Take 1 Jelena 100 MG oral 1-25 capsule Seybo ld Capsule 00:00: (100 mg - 00 total) by Externa mouth 3 l times daily Ondansetron 3-0 Yes [id number] 4mg Q.[id number] Take 1 Jelena (ZOFRAN) 4 1-25 [id number] tablet (4 Seybold MG oral 00:00: 3D mg total) - TABLET 00 by mouth Externa DISPERSIBLE every 8 l hours as needed for nausea Gabapentin 3-0 Yes [id number] 100mg Take 1 Jelena 100 MG oral 1-25 capsule Seybo ld Capsule 00:00: (100 mg - 00 total) by Externa mouth 3 l times daily Ondansetron 2023-0 Yes [id number] 4mg Q.[id number] Take 1 Jelena (ZOFRAN) 4 1-25 [id number] tablet (4 Seybold MG oral 00:00: 3D mg total) - TABLET 00 by mouth Externa DISPERSIBLE every 8 l hours as needed for nausea Gabapentin 2022-0 Yes [id number] 100mg Take 1 Jelena 100 MG oral 1-25 capsule Seybo ld Capsule 00:00: (100 mg - 00 total) by Externa mouth 3 l times daily Ondansetron 2022-0 Yes [id number] 4mg Q.[id number] Take 1 Jelena (ZOFRAN) 4 1-25 [id number] tablet (4 Seybold MG oral 00:00: 3D mg total) - TABLET 00 by mouth Externa DISPERSIBLE every 8 l hours as needed for nausea Ondansetron 2022-0 Yes [id number] 4mg Q.[id number] Take 1 Jelena (ZOFRAN) 4 1-25 [id number] tablet (4 Seybold MG oral 00:00: 3D mg total) - TABLET 00 by mouth Externa DISPERSIBLE every 8 l hours as needed for nausea Ondansetron 2022-0 Yes [id number] 4mg Q.[id number] Take 1 Jelena (ZOFRAN) 4 1-25 [id number] tablet (4 Seybold MG oral 00:00: 3D mg total) - TABLET 00 by mouth Externa DISPERSIBLE every 8 l hours as needed for nausea hydroCHLORO 2022-0 2023- No [id number] 12.5mg Take 1 Jelena thiazide 1-25 02-10 capsule Seybold 12.5 MG 00:00: 00:00 (12.5 mg - oral 00 :00 total) by Externa Capsule mouth l daily Nexplanon 2022-0 Yes Ejlena 68 MG 1-23 Seybold subcutaneou 00:00: - [...] Implant 00 Externa l Docusate 0 Yes [id number] 100mg Take 1 Ke lsey Sodium 1-13 capsule Seybold (Colace) 00:00: (100 mg - 100 MG oral 00 total) by Ext jonathan Capsule mouth l daily Ferrous 0 Yes [id number] 325mg Take 1 Emanuel sey Sulfate 1-13 tablet Seybold (Iron) 325 00:00: (325 mg - (65 Fe) MG 00 total) by Exte rna oral Tablet mouth l daily (with breakfast) Docusate 0 Yes [id number] 100mg Take 1 Ke lsey Sodium 1-13 capsule Seybold (Colace) 00:00: (100 mg - 100 MG oral 00 total) by Ext jonathan Capsule mouth l daily Ferrous 0 Yes [id number] 325mg Take 1 Emanuel sey Sulfate 1-13 tablet Seybold (Iron) 325 00:00: (325 mg - (65 Fe) MG 00 total) by Exte rna oral Tablet mouth l daily (with breakfast) Docusate 0 Yes [id number] 100mg Take 1 Ke lsey Sodium 1-13 capsule Seybold (Colace) 00:00: (100 mg - 100 MG oral 00 total) by Ext jonathan Capsule mouth l daily Ferrous 2022-0 Yes [id number] 325mg Take 1 Emanuel sey Sulfate 1-13 tablet Seybold (Iron) 325 00:00: (325 mg - (65 Fe) MG 00 total) by Exte rna oral Tablet mouth l daily (with breakfast) Docusate 2022-0 Yes [id number] 100mg Take 1 Ke lsey Sodium 1-13 capsule Seybold (Colace) 00:00: (100 mg - 100 MG oral 00 total) by Ext jonathan Capsule mouth l daily Ferrous 0 Yes [id number] 325mg Take 1 Emanuel sey Sulfate 1-13 tablet Seybold (Iron) 325 00:00: (325 mg - (65 Fe) MG 00 total) by Exte rna oral Tablet mouth l daily (with breakfast) Docusate 0 Yes [id number] 100mg Take 1 Ke lsey Sodium 1-13 capsule Seybold (Colace) 00:00: (100 mg - 100 MG oral 00 total) by Ext jonathan Capsule mouth l daily Ferrous 0 Yes [id number] 325mg Take 1 Emanuel sey Sulfate 1-13 tablet Seybold (Iron) 325 00:00: (325 mg - (65 Fe) MG 00 total) by Exte rna oral Tablet mouth l daily (with breakfast) Docusate 0 Yes [id number] 100mg Take 1 Ke lsey Sodium 1-13 capsule Seybold (Colace) 00:00: (100 mg - 100 MG oral 00 total) by Ext jonathan Capsule mouth l daily Ferrous 0 Yes [id number] 325mg Take 1 Emanuel sey Sulfate 1-13 tablet Seybold (Iron) 325 00:00: (325 mg - (65 Fe) MG 00 total) by Exte rna oral Tablet mouth l daily (with breakfast) Docusate 0 Yes [id number] 100mg Take 1 Ke lsey Sodium 1-13 capsule Seybold (Colace) 00:00: (100 mg - 100 MG oral 00 total) by Ext jonathan Capsule mouth l daily Ferrous 0 Yes [id number] 325mg Take 1 Emanuel sey Sulfate 1-13 tablet Seybold (Iron) 325 00:00: (325 mg - (65 Fe) MG 00 total) by Exte rna oral Tablet mouth l daily (with breakfast) Docusate 0 Yes [id number] 100mg Take 1 Ke lsey Sodium 1-13 capsule Seybold (Colace) 00:00: (100 mg - 100 MG oral 00 total) by Ext jonathan Capsule mouth l daily Ferrous 2022-0 Yes [id number] 325mg Take 1 Emanuel sey Sulfate 1-13 tablet Seybold (Iron) 325 00:00: (325 mg - (65 Fe) MG 00 total) by Exte rna oral Tablet mouth l daily (with breakfast) Nitrofurant 2022- No [id number] 100mg Take 1 Jelena oin Monohyd 1-13 [...] - 12 OR) 55 Externa l Dose 2021-0 No Unknown 2-03 00:00: 00 [...] 1-11 00:00: 00 LYRICA 150 2019-08 Yes [id number] Take 1 Univers mg capsule 2-21 capsule by ity of 00:00: mouth [place] 00 twice a Medical day for Branch neuropathi c pain as directed by physician. LYRICA 150 2019-08 Yes [id number] Take 1 Univers mg capsule 2-21 capsule by ity of 00:00: mouth [place] 00 twice a Medical day for Branch neuropathi c pain as directed by physician. LYRICA 150 2019-08 Yes [id number] Take 1 Univers mg capsule 2-21 capsule by ity of 00:00: mouth [place] 00 twice a Medical day for Branch neuropathi c pain as directed by physician. LYRICA 150 2019-08 Yes [id number] Take 1 Univers mg capsule 2-21 capsule by ity of 00:00: mouth [place] 00 twice a Medical day for Branch neuropathi c pain as directed by physician. LYRICA 150 2019-08 Yes [id number] Take 1 Univers mg capsule 2-21 capsule by ity of 00:00: mouth [place] 00 twice a Medical day for Branch neuropathi c pain as directed by physician. LYRICA 150 2019-08 Yes [id number] Take 1 Univers mg capsule 2-21 capsule by ity of 00:00: mouth [place] 00 twice a Medical day for Branch neuropathi c pain as directed by physician. LYRICA 150 2019-08 Yes [id number] Take 1 Univers mg capsule 2-21 capsule by ity of 00:00: mouth [place] 00 twice a Medical day for Branch neuropathi c pain as directed by physician. DULOXETINE 2020- No 60mg Take 60 mg Univers HCL 05-17 by mouth 3 ity of (CYMBALTA 16:16: 00:[place] (three) [place] 58 :00 times Medical daily. Branch DULOXETINE 2019-0 2020- No 60mg Take 60 [...] times Medical daily. Branch ofloxacin 2020-0 Yes [id number] 5[drp] Place 5 Univers 0.3 % otic 9-17 [id number] Drops in ity of drops 00:00: both ears [place] 00 3 (three) Medical times Branch daily. ofloxacin 2020-0 Yes [id number] 5[drp] Place 5 Univers 0.3 % otic 9-17 19452 Drops in ity of drops 00:00: both ears [place] 00 3 (three) Medical times Branch daily. ofloxacin 2020-0 Yes [id number] 5[drp] Place 5 Univers 0.3 % otic 9-17 [id number] Drops in ity of drops 00:00: both ears [place] 00 3 (three) Medical times Branch daily. ofloxacin 2020-0 Yes [id number] 5[drp] Place 5 Univers 0.3 % otic 9-17 [id number] Drops in ity of drops 00:00: both ears [place] 00 3 (three) Medical times Branch daily. ofloxacin 2020-0 Yes [id number] 5[drp] Place 5 Univers 0.3 % otic 9-17 [id number] Drops in ity of drops 00:00: both ears [place] 00 3 (three) Medical times Branch daily. ofloxacin 2020-0 Yes [id number] 5[drp] Place 5 Univers 0.3 % otic 9-17 [id number] Drops in ity of drops 00:00: both ears [place] 00 3 (three) Medical times Branch daily. ofloxacin 2020-0 Yes [id number] 5[drp] Place 5 Univers 0.3 % otic 9-17 [id number] Drops in ity of drops 00:00: both ears [place] 00 3 (three) Medical times Branch daily. ofloxacin 2020-0 Yes [id number] 5[drp] Place 5 Univers 0.3 % otic 9-17 [id number] Drops in ity of drops 00:00: both ears [place] 00 3 (three) Medical times Branch daily. ofloxacin 2020-0 Yes [id number] 5[drp] Place 5 Univers 0.3 % otic 9-17 [id number] Drops in ity of drops 00:00: both ears [place] 00 3 (three) Medical times Branch daily. ofloxacin 2020-0 Yes [id number] 5[drp] Place 5 Univers 0.3 % otic 9-17 10600 Drops in ity of drops 00:00: both ears [place] 00 3 (three) Medical times Branch daily. ofloxacin 2020-0 Yes [id number] 5[drp] Place 5 [facility] 0.3 % otic 9-17 [id number] Drops in ity of drops 00:00: both ears [place] 00 3 (three) Medical times Branch daily. ofloxacin 2020-0 Yes [id number] 5[drp] Place 5 [facility] 0.3 % otic 9-17 66780 Drops in ity of drops 00:00: both ears [place] 00 3 (three) Medical times Branch daily. ofloxacin 2020-0 Yes [id number] 5[drp] Place 5 [facility] 0.3 % otic 9-17 40020 Drops in ity of drops 00:00: both ears [place] 00 3 (three) Medical times Branch daily. ofloxacin 2020-0 Yes [id number] 5[drp] Place 5 [facility] 0.3 % otic 9-17 [id number] Drops in ity of drops 00:00: both ears [place] 00 3 (three) Medical times Branch daily. ofloxacin 2020-0 Yes [id number] 5[drp] Place 5 [facility] 0.3 % otic 9-17 [id number] Drops in ity of drops 00:00: both ears [place] 00 3 (three) Medical times Branch daily. acetaminoph 2019- 2020- No 4647 1{tbl} Take 1 [facility] nivers en-codeine 05-17-25 tablet by ity of (TYLENOL-CO 00:00: 04:[place] DE[place] #3[place] 00 :00 every 4 Medical 300-30 mg (four) Branch tablet hours as needed for Pain (scale 7-10) for up to 7 days. Indication s: acute pain acetaminoph 2019- 2020- No 4647 1{tbl} Take 1 [facility] en-codeine 05-17-25 tablet by ity of (TYLENOL-CO 00:00: 04:59 [place] DE[place] #3) 00 :00 every 4 Medical 300-30 mg (four) Branch tablet hours as needed for Pain (scale 7-10) for up to 7 days. Indication s: acute pain acetaminoph 2020- No 4647 1{tbl} Take 1 [facility] en-codeine 05-17-25 tablet by ity of (TYLENOL-CO 00:00: 04:59 [place] DE[place] #3) 00 :00 every 4 Medical 300-30 mg (four) Branch tablet hours as needed for Pain (scale 7-10) for up to 7 days. Indication s: acute pain metoprolol 2020-0 Yes [id number] 50mg Take 1 Un nneka succinate 7-09 tablet by ity o f XL 50 mg 24 00:00: mouth [place] hr tablet 00 daily. Medical Branch hydroCHLORO 2020-0 Yes [id number] 25mg Take 1 [facility] thiazide 25 7-09 tablet by ity of mg tablet 00:00: mouth [place] 00 daily. Medical Branch baclofen 10 2019-0 Yes [id number] 10mg Take 1 [facility] mg tablet 03-08 [id number] tablet by ity of 00:00: mouth 3 [place] 00 (three) Medical times Branch daily as needed for Pain (scale 4-6). metoprolol 2020-0 Yes [id number] 50mg Take 1 Un nneka succinate 7-09 tablet by ity o f XL 50 mg 24 00:00: mouth [place] hr tablet 00 daily. Medical Branch hydroCHLORO 2020-0 Yes [id number] 25mg Take 1 [facility] thiazide 25 7-09 tablet by ity of mg tablet 00:00: mouth [place] 00 daily. Medical Branch baclofen 10 2020-0 Yes [id number] 10mg Take 1 [facility] mg tablet 7- [id number] tablet by ity of 00:00: mouth 3 [place] 00 (three) Medical times Branch daily as needed for Pain (scale 4-6). metoprolol 2020-0 Yes [id number] 50mg Take 1 [facility] nneka succinate 7-09 tablet by ity o f XL 50 mg 24 00:00: mouth [place] hr tablet 00 daily. Medical Branch hydroCHLORO 2020-0 Yes [id number] 25mg Take 1 [facility] thiazide 25 7-09 tablet by ity of mg tablet 00:00: mouth [place] 00 daily. Medical Branch baclofen 10 2020-0 Yes [id number] 10mg Take 1 [facility] mg tablet 7- [id number] tablet by ity of 00:00: mouth 3 [place] 00 (three) Medical times Branch daily as needed for Pain (scale 4-6). metoprolol 2020-0 Yes [id number] 50mg Take 1 [facility] nneka succinate 7-09 tablet by ity o f XL 50 mg 24 00:00: mouth [place] hr tablet 00 daily. Medical Branch hydroCHLORO 2020-0 Yes [id number] 25mg Take 1 [facility] thiazide 25 7-09 tablet by ity of mg tablet 00:00: mouth [place] 00 daily. Medical Branch baclofen 10 2019-0 Yes [id number] 10mg Take 1 [facility] mg tablet 03-08 [id number] tablet by ity of 00:00: mouth 3 [place] 00 (three) Medical times Branch daily as needed for Pain (scale 4-6). metoprolol 2020-0 Yes [id number] 50mg Take 1 [facility] nneka succinate 7-09 tablet by ity o f XL 50 mg 24 00:00: mouth [place] hr tablet 00 daily. Medical Branch hydroCHLORO 2020-0 Yes [id number] 25mg Take 1 [facility] thiazide 25 7-09 tablet by ity of mg tablet 00:00: mouth [place] 00 daily. Medical Branch baclofen 10 2019-0 Yes [id number] 10mg Take 1 [facility] mg tablet 03-08 [id number] tablet by ity of 00:00: mouth 3 [place] 00 (three) Medical times Branch daily as needed for Pain (scale 4-6). metoprolol 2020-0 Yes [id number] 50mg Take 1 Un nneka succinate 7-09 tablet by ity o f XL 50 mg 24 00:00: mouth [place] hr tablet 00 daily. Medical Branch hydroCHLORO 2020-0 Yes [id number] 25mg Take 1 [facility] thiazide 25 7-09 tablet by ity of mg tablet 00:00: mouth [place] 00 daily. Medical Branch baclofen 10 2020-0 Yes [id number] 10mg Take 1 [facility] mg tablet 7- [id number] tablet by ity of 00:00: mouth 3 [place] 00 (three) Medical times Branch daily as needed for Pain (scale 4-6). metoprolol 2020-0 Yes [id number] 50mg Take 1 [facility] nneka succinate 7-09 tablet by ity o f XL 50 mg 24 00:00: mouth [place] hr tablet 00 daily. Medical Branch hydroCHLORO 2020-0 Yes [id number] 25mg Take 1 [facility] thiazide 25 7-09 tablet by ity of mg tablet 00:00: mouth [place] 00 daily. Medical Branch baclofen 10 2020-0 Yes [id number] 10mg Take 1 [facility] mg tablet 7 [id number] tablet by ity of 00:00: mouth 3 [place] 00 (three) Medical times Branch daily as needed for Pain (scale 4-6). metoprolol 2020-0 Yes [id number] 50mg Take 1 [facility] nneka succinate 7-09 tablet by ity o f XL 50 mg 24 00:00: mouth [place] hr tablet 00 daily. Medical Branch hydroCHLORO 2020-0 Yes [id number] 25mg Take 1 [facility] thiazide 25 7-09 tablet by ity of mg tablet 00:00: mouth [place] 00 daily. Medical Branch baclofen 10 2019-0 Yes [id number] 10mg Take 1 [facility] mg tablet 03-08 [id number] tablet by ity of 00:00: mouth 3 [place] 00 (three) Medical times Branch daily as needed for Pain (scale 4-6). metoprolol 2020-0 Yes [id number] 50mg Take 1 [facility] nneka succinate 7-09 tablet by ity o f XL 50 mg 24 00:00: mouth [place] hr tablet 00 daily. Medical Branch hydroCHLORO 2020-0 Yes [id number] 25mg Take 1 [facility] thiazide 25 7-09 tablet by ity of mg tablet 00:00: mouth [place] 00 daily. Medical Branch baclofen 10 2019-0 Yes [id number] 10mg Take 1 [facility] mg tablet 7- [id number] tablet by ity of 00:00: mouth 3 [place] 00 (three) Medical times Branch daily as needed for Pain (scale 4-6). metoprolol 2020-0 Yes [id number] 50mg Take 1 [facility] nneka succinate 7-09 tablet by ity o f XL 50 mg 24 00:00: mouth [place] hr tablet 00 daily. Medical Branch hydroCHLORO 2020-0 Yes [id number] 25mg Take 1 [facility] thiazide 25 7-09 tablet by ity of mg tablet 00:00: mouth [place] 00 daily. Medical Branch baclofen 10 2020-0 Yes [id number] 10mg Take 1 [facility] mg tablet 7 [id number] tablet by ity of 00:00: mouth 3 [place] 00 (three) Medical times Branch daily as needed for Pain (scale 4-6). metoprolol 2020-0 Yes [id number] 50mg Take 1 [facility] nneka succinate 7-09 tablet by ity o f XL 50 mg 24 00:00: mouth [place] hr tablet 00 daily. Medical Branch hydroCHLORO 2020-0 Yes [id number] 25mg Take 1 [facility] thiazide 25 7-09 tablet by ity of mg tablet 00:00: mouth [place] 00 daily. Medical Branch baclofen 10 2020-0 Yes [id number] 10mg Take 1 [facility] mg tablet 03-08 [id number] tablet by ity of 00:00: mouth 3 [place] 00 (three) Medical times Branch daily as needed for Pain (scale 4-6). metoprolol 2020-0 Yes [id number] 50mg Take 1 [facility] nneka succinate 7-09 tablet by ity o f XL 50 mg 24 00:00: mouth [place] hr tablet 00 daily. Medical Branch hydroCHLORO 2020-0 Yes [id number] 25mg Take 1 [facility] thiazide 25 7-09 tablet by ity of mg tablet 00:00: mouth [place] 00 daily. Medical Branch baclofen 10 2020-0 Yes [id number] 10mg Take 1 [facility] mg tablet 03-08 [id number] tablet by ity of 00:00: mouth 3 [place] 00 (three) Medical times Branch daily as needed for Pain (scale 4-6). metoprolol 2020-0 Yes [id number] 50mg Take 1 [facility] nneka succinate 7-09 tablet by ity o f XL 50 mg 24 00:00: mouth [place] hr tablet 00 daily. Medical Branch hydroCHLORO 2020-0 Yes [id number] 25mg Take 1 [facility] thiazide 25 7-09 tablet by ity of mg tablet 00:00: mouth [place] 00 daily. Medical Branch baclofen 10 2020-0 Yes [id number] 10mg Take 1 [facility] mg tablet 03-08 [id number] tablet by ity of 00:00: mouth 3 [place] 00 (three) Medical times Branch daily as needed for Pain (scale 4-6). metoprolol 2020-0 Yes [id number] 50mg Take 1 [facility] nneka succinate 7-09 tablet by ity o f XL 50 mg 24 00:00: mouth [place] hr tablet 00 daily. Medical Branch hydroCHLORO 2020-0 Yes [id number] 25mg Take 1 [facility] thiazide 25 7-09 tablet by ity of mg tablet 00:00: mouth [place] 00 daily. Medical Branch baclofen 10 2020-0 Yes [id number] 10mg Take 1 [facility] mg tablet 7- [id number] tablet by ity of 00:00: mouth 3 [place] 00 (three) Medical times Branch daily as needed for Pain (scale 4-6). metoprolol 2020-0 Yes [id number] 50mg Take 1 [facility] nneka succinate 7-09 tablet by ity o f XL 50 mg 24 00:00: mouth [place] hr tablet 00 daily. Medical Branch hydroCHLORO 2020-0 Yes [id number] 25mg Take 1 [facility] thiazide 25 7-09 tablet by ity of mg tablet 00:00: mouth [place] 00 daily. Medical Branch baclofen 10 2019-0 Yes [id number] 10mg Take 1 [facility] mg tablet 03-08 [id number] tablet by ity of 00:00: mouth 3 [place] 00 (three) Medical times Branch daily as needed for Pain (scale 4-6). metoprolol 2020-0 Yes [id number] 50mg Take 1 [facility] nneka succinate 7-09 tablet by ity o f XL 50 mg 24 00:00: mouth [place] hr tablet 00 daily. Medical Branch hydroCHLORO 2020-0 Yes [id number] 25mg Take 1 [facility] thiazide 25 7-09 tablet by ity of mg tablet 00:00: mouth [place] 00 daily. Medical Branch baclofen 10 2019-0 Yes [id number] 10mg Take 1 [facility] mg tablet 03-08 [id number] tablet by ity of 00:00: mouth 3 [place] 00 (three) Medical times Branch daily as needed for Pain (scale 4-6). metoprolol 2020-0 Yes [id number] 50mg Take 1 [facility] nneka succinate 7-09 tablet by ity o f XL 50 mg 24 00:00: mouth [place] hr tablet 00 daily. Medical Branch hydroCHLORO 2020-0 Yes [id number] 25mg Take 1 [facility] thiazide 25 7-09 tablet by ity of mg tablet 00:00: mouth [place] 00 daily. Medical Branch baclofen 10 2020-0 Yes [id number] 10mg Take 1 [facility] mg tablet 03-08 [id number] tablet by ity of 00:00: mouth 3 [place] 00 (three) Medical times Branch daily as needed for Pain (scale 4-6). metoprolol 2020-0 Yes [id number] 50mg Take 1 [facility] nneka succinate 7-09 tablet by ity o f XL 50 mg 24 00:00: mouth [place] hr tablet 00 daily. Medical Branch hydroCHLORO 2020-0 Yes [id number] 25mg Take 1 [facility] thiazide 25 7-09 tablet by ity of mg tablet 00:00: mouth [place] 00 daily. Medical Branch baclofen 10 2020-0 Yes [id number] 10mg Take 1 [facility] mg tablet 7- [id number] tablet by ity of 00:00: mouth 3 [place] 00 (three) Medical times Branch daily as needed for Pain (scale 4-6). metoprolol 2020-0 Yes [id number] 50mg Take 1 [facility] nneka succinate 7-09 tablet by ity o f XL 50 mg 24 00:00: mouth [place] hr tablet 00 daily. Medical Branch hydroCHLORO 2020-0 Yes [id number] 25mg Take 1 [facility] thiazide 25 7-09 tablet by ity of mg tablet 00:00: mouth [place] 00 daily. Medical Branch baclofen 10 2020-0 Yes [id number] 10mg Take 1 [facility] mg tablet 7 [id number] tablet by ity of 00:00: mouth 3 [place] 00 (three) Medical times Branch daily as needed for Pain (scale 4-6). metoprolol 2020-0 Yes [id number] 50mg Take 1 [facility] nneka succinate 7-09 tablet by ity o f XL 50 mg 24 00:00: mouth [place] hr tablet 00 daily. Medical Branch hydroCHLORO 2020-0 Yes [id number] 25mg Take 1 [facility] thiazide 25 7-09 tablet by ity of mg tablet 00:00: mouth [place] 00 daily. Medical Branch baclofen 10 2020-0 Yes [id number] 10mg Take 1 [facility] mg tablet 7- [id number] tablet by ity of 00:00: mouth 3 [place] 00 (three) Medical times Branch daily as needed for Pain (scale 4-6). metoprolol 2020-0 Yes [id number] 50mg Take 1 [facility] nneka succinate 7-09 tablet by ity o f XL 50 mg 24 00:00: mouth [place] hr tablet 00 daily. Medical Branch hydroCHLORO 2020-0 Yes [id number] 25mg Take 1 [facility] thiazide 25 7-09 tablet by ity of mg tablet 00:00: mouth [place] 00 daily. Medical Branch baclofen 10 2020-0 Yes [id number] 10mg Take 1 [facility] mg tablet 03-08 [id number] tablet by ity of 00:00: mouth 3 [place] 00 (three) Medical times Branch daily as needed for Pain (scale 4-6). metoprolol 2020-0 Yes [id number] 50mg Take 1 [facility] nneka succinate 7-09 tablet by ity o f XL 50 mg 24 00:00: mouth [place] hr tablet 00 daily. Medical Branch hydroCHLORO 2020-0 Yes [id number] 25mg Take 1 [facility] thiazide 25 7-09 tablet by ity of mg tablet 00:00: mouth [place] 00 daily. Medical Branch baclofen 10 2020-0 Yes [id number] 10mg Take 1 [facility] mg tablet 03-08 [id number] tablet by ity of 00:00: mouth 3 [place] 00 (three) Medical times Branch daily as needed for Pain (scale 4-6). metoprolol 2020-0 Yes [id number] 50mg Take 1 [facility] nneka succinate 7-09 tablet by ity o f XL 50 mg 24 00:00: mouth [place] hr tablet 00 daily. Medical Branch hydroCHLORO 2020-0 Yes [id number] 25mg Take 1 [facility] thiazide 25 7-09 tablet by ity of mg tablet 00:00: mouth [place] 00 daily. Medical Branch baclofen 10 2020-0 Yes [id number] 10mg Take 1 [facility] mg tablet 03-08 [id number] tablet by ity of 00:00: mouth 3 [place] 00 (three) Medical times Branch daily as needed for Pain (scale 4-6). metoprolol 2020-0 Yes [id number] 50mg Take 1 [facility] nneka succinate 7-09 tablet by ity o f XL 50 mg 24 00:00: mouth [place] hr tablet 00 daily. Medical Branch hydroCHLORO 2020-0 Yes [id number] 25mg Take 1 [facility] thiazide 25 7-09 tablet by ity of mg tablet 00:00: mouth [place] 00 daily. Medical Branch baclofen 10 2020-0 Yes [id number] 10mg Take 1 [facility] mg tablet 03-08 [id number] tablet by ity of 00:00: mouth 3 [place] 00 (three) Medical times Branch daily as needed for Pain (scale 4-6). metoprolol 2020-0 Yes [id number] 50mg Take 1 [facility] nneka succinate 7-09 tablet by ity o f XL 50 mg 24 00:00: mouth [place] hr tablet 00 daily. Medical Branch hydroCHLORO 2020-0 Yes [id number] 25mg Take 1 [facility] thiazide 25 7- tablet by ity of mg tablet 00:00: mouth [place] 00 daily. Medical Branch baclofen 10 2020-0 Yes [id number] 10mg Take 1 [facility] mg tablet 03-08 [id number] tablet by ity of 00:00: mouth 3 [place] 00 (three) Medical times Branch daily as needed for Pain (scale 4-6). DULOXETINE 2020-0 Yes 60mg Take 60 mg U nivers HCL 2-25 by mouth 3 ity of (CYMBALTA 14:58: (three) [place] ORAL) 32 times Medical daily. Branch VITAMIN B 2020-0 Yes Take by Unive rs COMPLEX 2-25 mouth. ity of ORAL 14:58: [place] [address] Medical Branch traZODONE 2020-0 Yes 100mg Take 100 [facility] vers 100 mg 2-25 mg by ity of tablet 14:58: mouth at [place] [address] bedtime. Medical Branch benztropine 2020-0 Yes 1mg Take 1 mg U nivers 1 mg tablet 2-25 by mouth ity of 14:58: daily. [address] Branch DULOXETINE 2020-0 Yes 60mg Take 60 mg U nivers HCL 2-25 by mouth 3 ity of (CYMBALTA 14:58: (three) [place] ORAL) 32 times Medical daily. Branch VITAMIN B 2020-0 Yes Take by Unive rs COMPLEX 2-25 mouth. ity of ORAL 14:58: [place] [address] Medical Branch traZODONE 2020-0 Yes 100mg Take 100 [facility] vers 100 mg 2-25 mg by ity of tablet 14:58: mouth at [place] [address] bedtime. Medical Branch benztropine 2020-0 Yes 1mg Take 1 mg U nivers 1 mg tablet 2-25 by mouth ity of 14:58: daily. [address] Branch DULOXETINE 2020-0 Yes 60mg Take 60 mg U nivers HCL 2-25 by mouth 3 ity of (CYMBALTA 14:58: (three) [place] ORAL) 32 times Medical daily. Branch VITAMIN B 2020-0 Yes Take by Unive rs COMPLEX 2-25 mouth. ity of ORAL 14:58: [place] [address] Medical Branch traZODONE 2020-0 Yes 100mg Take 100 [facility] vers 100 mg 2-25 mg by ity of tablet 14:58: mouth at [place] [address] bedtime. Medical Branch benztropine 2020-0 Yes 1mg Take 1 mg U nivers 1 mg tablet 2-25 by mouth ity of 14:58: daily. [place] [address] Medical Branch DULOXETINE 2020-0 Yes 60mg Take 60 mg U nivers HCL 2-25 by mouth 3 ity of (CYMBALTA 14:58: (three) [place] ORAL) 32 times Medical daily. Branch VITAMIN B 2020-0 Yes Take by Unive rs COMPLEX 2-25 mouth. ity of ORAL 14:58: [place] [address] Medical Branch traZODONE 2020-0 Yes 100mg Take 100 [facility] vers 100 mg 2-25 mg by ity of tablet 14:58: mouth at [place] [address] bedtime. Medical Branch benztropine 2020-0 Yes 1mg Take 1 mg U nivers 1 mg tablet 2-25 by mouth ity of 14:58: daily. [place] [address] Medical Branch DULOXETINE 2020-0 Yes 60mg Take 60 mg U nivers HCL 2-25 by mouth 3 ity of (CYMBALTA 14:58: (three) [place] ORAL) 32 times Medical daily. Branch VITAMIN B 2020-0 Yes Take by Unive rs COMPLEX 2-25 mouth. ity of ORAL 14:58: [place] [address] Medical Branch traZODONE 2020-0 Yes 100mg Take 100 [facility] vers 100 mg 2-25 mg by ity of tablet 14:58: mouth at [place] [address] bedtime. Medical Branch benztropine 2020-0 Yes 1mg Take 1 mg [facility] nivers 1 mg tablet 2-25 by mouth ity of 14:58: daily. [place] [address] Medical Branch DULOXETINE 2020-0 Yes 60mg Take 60 mg U nivers HCL 2-25 by mouth 3 ity of (CYMBALTA 14:58: (three) [place] ORAL) 32 times Medical daily. Branch VITAMIN B 2020-0 Yes Take by Unive rs COMPLEX 2-25 mouth. ity of ORAL 14:58: [place] [address] Medical Branch traZODONE 2020-0 Yes 100mg Take 100 [facility] vers 100 mg 2-25 mg by ity of tablet 14:58: mouth at [place] [address] bedtime. Medical Branch benztropine 2020-0 Yes 1mg Take 1 mg [facility] nivers 1 mg tablet 2-25 by mouth ity of 14:58: daily. [place] [address] Medical Branch DULOXETINE 2020-0 Yes 60mg Take 60 mg U nivers HCL 2-25 by mouth 3 ity of (CYMBALTA 14:58: (three) [place] ORAL) 32 times Medical daily. Branch VITAMIN B 2020-0 Yes Take by Unive rs COMPLEX 2-25 mouth. ity of ORAL 14:58: [place] [address] Medical Branch traZODONE 2020-0 Yes 100mg Take 100 [facility] vers 100 mg 2-25 mg by ity of tablet 14:58: mouth at [place] [address] bedtime. Medical Branch benztropine 2020-0 Yes 1mg Take 1 mg [facility] nivers 1 mg tablet 2-25 by mouth ity of 14:58: daily. [place] [address] Medical Branch DULOXETINE 2020-0 Yes 60mg Take 60 mg U nivers HCL 2-25 by mouth 3 ity of (CYMBALTA 14:58: (three) [place] ORAL) 32 times Medical daily. Branch VITAMIN B 2020-0 Yes Take by Unive rs COMPLEX 2-25 mouth. ity of ORAL 14:58: [place] [address] Medical Branch traZODONE 2020-0 Yes 100mg Take 100 [facility] vers 100 mg 2-25 mg by ity of tablet 14:58: mouth at [place] [address] bedtime. Medical Branch benztropine 2020-0 Yes 1mg Take 1 mg [facility] nivers 1 mg tablet 2-25 by mouth ity of 14:58: daily. [place] [address] Medical Branch DULOXETINE 2020-0 Yes 60mg Take 60 mg U nivers HCL 2-25 by mouth 3 ity of (CYMBALTA 14:58: (three) [place] ORAL) 32 times Medical daily. Branch VITAMIN B 2020-0 Yes Take by Unive rs COMPLEX 2-25 mouth. ity of ORAL 14:58: [place] [address] Medical Branch traZODONE 2020-0 Yes 100mg Take 100 [facility] vers 100 mg 2-25 mg by ity of tablet 14:58: mouth at [place] [address] bedtime. Medical Branch benztropine 2020-0 Yes 1mg Take 1 mg [facility] nivers 1 mg tablet 2-25 by mouth ity of 14:58: daily. [place] [address] Medical Branch DULOXETINE 2020-0 Yes 60mg Take 60 mg U nivers HCL 2-25 by mouth 3 ity of (CYMBALTA 14:58: (three) [place] ORAL) 32 times Medical daily. Branch VITAMIN B 2020-0 Yes Take by Unive rs COMPLEX 2-25 mouth. ity of ORAL 14:58: [place] [address] Medical Branch traZODONE 2020-0 Yes 100mg Take 100 [facility] vers 100 mg 2-25 mg by ity of tablet 14:58: mouth at [place] [address] bedtime. Medical Branch benztropine 2020-0 Yes 1mg Take 1 mg [facility] nivers 1 mg tablet 2-25 by mouth ity of 14:58: daily. [place] [address] Medical Branch DULOXETINE 2020-0 Yes 60mg Take 60 mg U nivers HCL 2-25 by mouth 3 ity of (CYMBALTA 14:58: (three) [place] ORAL) 32 times Medical daily. Branch VITAMIN B 2020-0 Yes Take by Unive rs COMPLEX 2-25 mouth. ity of ORAL 14:58: [place] [address] Medical Branch traZODONE 2020-0 Yes 100mg Take 100 [facility] vers 100 mg 2-25 mg by ity of tablet 14:58: mouth at [place] [address] bedtime. Medical Branch benztropine 2020-0 Yes 1mg Take 1 mg [facility] nivers 1 mg tablet 2-25 by mouth ity of 14:58: daily. [place] [address] Medical Branch DULOXETINE 2020-0 Yes 60mg Take 60 mg U nivers HCL 2-25 by mouth 3 ity of (CYMBALTA 14:58: (three) [place] ORAL) 32 times Medical daily. Branch VITAMIN B 2020-0 Yes Take by Unive rs COMPLEX 2-25 mouth. ity of ORAL 14:58: [place] [address] Medical Branch traZODONE 2020-0 Yes 100mg Take 100 [facility] vers 100 mg 2-25 mg by ity of tablet 14:58: mouth at [place] [address] bedtime. Medical Branch benztropine 2020-0 Yes 1mg Take 1 mg [facility] nivers 1 mg tablet 2-25 by mouth ity of 14:58: daily. [place] [address] Medical Branch DULOXETINE 2020-0 Yes 60mg Take 60 mg U nivers HCL 2-25 by mouth 3 ity of (CYMBALTA 14:58: (three) [place] ORAL) 32 times Medical daily. Branch VITAMIN B 2020-0 Yes Take by Unive rs COMPLEX 2-25 mouth. ity of ORAL 14:58: [place] [address] Medical Branch traZODONE 2020-0 Yes 100mg Take 100 [facility] vers 100 mg 2-25 mg by ity of tablet 14:58: mouth at [place] [address] bedtime. Medical Branch benztropine 2020-0 Yes 1mg Take 1 mg [facility] nivers 1 mg tablet 2-25 by mouth ity of 14:58: daily. [place] [address] Medical Branch DULOXETINE 2020-0 Yes 60mg Take 60 mg U nivers HCL 2-25 by mouth 3 ity of (CYMBALTA 14:58: (three) [place] ORAL) 32 times Medical daily. Branch VITAMIN B 2020-0 Yes Take by Unive rs COMPLEX 2-25 mouth. ity of ORAL 14:58: [place] [address] Medical Branch traZODONE 2020-0 Yes 100mg Take 100 [facility] vers 100 mg 2-25 mg by ity of tablet 14:58: mouth at [place] [address] bedtime. Medical Branch benztropine 2020-0 Yes 1mg Take 1 mg U nivers 1 mg tablet 2-25 by mouth ity of 14:58: daily. [place] [address] Medical Branch DULOXETINE 2020-0 Yes 60mg Take 60 mg U nivers HCL 2-25 by mouth 3 ity of (CYMBALTA 14:58: (three) [place] ORAL) 32 times Medical daily. Branch VITAMIN B 2020-0 Yes Take by Unive rs COMPLEX 2-25 mouth. ity of ORAL 14:58: [place] [address] Medical Branch traZODONE 2020-0 Yes 100mg Take 100 [facility] vers 100 mg 2-25 mg by ity of tablet 14:58: mouth at [place] [address] bedtime. Medical Branch benztropine 2020-0 Yes 1mg Take 1 mg U nivers 1 mg tablet 2-25 by mouth ity of 14:58: daily. [place] [address] Medical Branch DULOXETINE 2020-0 Yes 60mg Take 60 mg U nivers HCL 2-25 by mouth 3 ity of (CYMBALTA 14:58: (three) [place] ORAL) 32 times Medical daily. Branch VITAMIN B 2020-0 Yes Take by Unive rs COMPLEX 2-25 mouth. ity of ORAL 14:58: [place] [address] Medical Branch traZODONE 2020-0 Yes 100mg Take 100 [facility] vers 100 mg 2-25 mg by ity of tablet 14:58: mouth at [place] [address] bedtime. Medical Branch benztropine 2020-0 Yes 1mg Take 1 mg U nivers 1 mg tablet 2-25 by mouth ity of 14:58: daily. [place] [address] Medical Branch DULOXETINE 2020-0 Yes 60mg Take 60 mg U nivers HCL 2-25 by mouth 3 ity of (CYMBALTA 14:58: (three) [place] ORAL) 32 times Medical daily. Branch VITAMIN B 2020-0 Yes Take by Unive rs COMPLEX 2-25 mouth. ity of ORAL 14:58: [address] traZODONE 2020-0 Yes 100mg Take 100 [facility] vers 100 mg 2-25 mg by ity of tablet 14:58: mouth at [place] [address] bedtime. Medical Branch benztropine 2020-0 Yes 1mg Take 1 mg U nivers 1 mg tablet 2-25 by mouth ity of 14:58: daily. [address] VITAMIN B 2020-0 Yes Take by Un[facility] rs COMPLEX 2-25 mouth. ity of ORAL 14:58: [address] traZODONE 2020-0 Yes 100mg Take 100 [facility] vers 100 mg 2-25 mg by ity of tablet 14:58: mouth at [place] [address] bedtime. Medical Branch benztropine 2020-0 Yes 1mg Take 1 mg U nivers 1 mg tablet 2-25 by mouth ity of 14:58: daily. [address] VITAMIN B 2020-0 Yes Take by Un[facility] rs COMPLEX 2-25 mouth. ity of ORAL 14:58: [address] traZODONE 2020-0 Yes 100mg Take 100 [facility] vers 100 mg 2-25 mg by ity of tablet 14:58: mouth at [place] [address] bedtime. Medical Branch benztropine 2020-0 Yes 1mg Take 1 mg U nivers 1 mg tablet 2-25 by mouth ity of 14:58: daily. [address] VITAMIN B 2020-0 Yes Take by Un[facility] rs COMPLEX 2-25 mouth. ity of ORAL 14:58: [address] traZODONE 2020-0 Yes 100mg Take 100 [facility] vers 100 mg 2-25 mg by ity of tablet 14:58: mouth at [place] [address] bedtime. Medical Branch benztropine 2020-0 Yes 1mg Take 1 mg [facility] nivers 1 mg tablet 2-25 by mouth ity of 14:58: daily. [address] VITAMIN B 2020-0 Yes Take by Un[facility] rs COMPLEX 2-25 mouth. ity of ORAL 14:58: [address] traZODONE 2020-0 Yes 100mg Take 100 [facility] vers 100 mg 2-25 mg by ity of tablet 14:58: mouth at [place] [address] bedtime. Medical Branch benztropine 2020-0 Yes 1mg Take 1 mg U nivers 1 mg tablet 2-25 by mouth ity of 14:58: daily. [address] Branch VITAMIN B 2020-0 Yes Take by Un[facility] rs COMPLEX 2-25 mouth. ity of ORAL 14:58: [address] Branch traZODONE 2020-0 Yes 100mg Take 100 [facility] vers 100 mg 2-25 mg by ity of tablet 14:58: mouth at [place] [address] bedtime. Medical Branch benztropine 2020-0 Yes 1mg Take 1 mg U nivers 1 mg tablet 2-25 by mouth ity of 14:58: daily. [address] VITAMIN B 2020-0 Yes Take by Unive rs COMPLEX 2-25 mouth. ity of ORAL 14:58: [address] traZODONE 2020-0 Yes 100mg Take 100 Uni vers 100 mg 2-25 mg by ity of tablet 14:58: mouth at [place] [address] bedtime. [facility] benztropine 2020-0 Yes 1mg Take 1 mg U nivers 1 mg tablet 2-25 by mouth ity of 14:58: daily. [address] VITAMIN B 2020-0 Yes Take by Unive rs COMPLEX 2-25 mouth. ity of ORAL 14:58: [address] traZODONE 2020-0 Yes 100mg Take 100 Uni vers 100 mg 2-25 mg by ity of tablet 14:58: mouth at [place] [address] bedtime. [facility] benztropine 2020-0 Yes 1mg Take 1 mg U nivers 1 mg tablet 2-25 by mouth ity of 14:58: daily. [address] VITAMIN B 2020-0 Yes Take by Unive rs COMPLEX 2-25 mouth. ity of ORAL 14:58: [address] traZODONE 2020-0 Yes 100mg Take 100 Uni vers 100 mg 2-25 mg by ity of tablet 14:58: mouth at [place] [address] bedtime. [facility] benztropine 2020-0 Yes 1mg Take 1 mg U nivers 1 mg tablet 2-25 by mouth ity of 14:58: daily. [address] VITAMIN B 2020-0 Yes Take by Unive rs COMPLEX 2-25 mouth. ity of ORAL 14:58: [address] traZODONE 2020-0 Yes 100mg Take 100 Uni vers 100 mg 2-25 mg by ity of tablet 14:58: mouth at [place] [address] bedtime. [facility] benztropine 2020-0 Yes 1mg Take 1 mg U nivers 1 mg tablet 2-25 by mouth ity of 14:58: daily. [address] VITAMIN B 2020-0 Yes Take by Unive rs COMPLEX 2-25 mouth. ity of ORAL 14:58: [address] traZODONE 2020-0 Yes 100mg Take 100 Uni vers 100 mg 2-25 mg by ity of tablet 14:58: mouth at [place] [address] bedtime. [facility] benztropine 2020-0 Yes 1mg Take 1 mg U nivers 1 mg tablet 2-25 by mouth ity of 14:58: daily. [address] VITAMIN B 2020-0 Yes Take by Unive rs COMPLEX 2-25 mouth. ity of ORAL 14:58: [address] traZODONE 2020-0 Yes 100mg Take 100 Uni vers 100 mg 2-25 mg by ity of tablet 14:58: mouth at [place] [address] bedtime. [facility] benztropine 2020-0 Yes 1mg Take 1 mg U nivers 1 mg tablet 2-25 by mouth ity of 14:58: daily. [address] VITAMIN B 2020-0 Yes Take by Unive rs COMPLEX 2-25 mouth. ity of ORAL 14:58: [address] traZODONE 2020-0 Yes 100mg Take 100 Uni vers 100 mg 2-25 mg by ity of tablet 14:58: mouth at [place] [address] bedtime. [facility] benztropine 2020-0 Yes 1mg Take 1 mg U nivers 1 mg tablet 2-25 by mouth ity of 14:58: daily. [address] VITAMIN B 2020-0 Yes Take by Unive rs COMPLEX 2-25 mouth. ity of ORAL 14:58: [address] traZODONE 2020-0 Yes 100mg Take 100 Uni vers 100 mg 2-25 mg by ity of tablet 14:58: mouth at [place] [address] bedtime. [facility] benztropine 2020-0 Yes 1mg Take 1 mg U nivers 1 mg tablet 2-25 by mouth ity of 14:58: daily. [address] VITAMIN B 2020-0 Yes Take by Unive rs COMPLEX 2-25 mouth. ity of ORAL 14:58: [place] [address] Medical Branch traZODONE 2020-0 Yes 100mg Take 100 Uni vers 100 mg 2-25 mg by ity of tablet 14:58: mouth at [place] [address] bedtime. [facility] benztropine 2020-0 Yes 1mg Take 1 mg U nivers 1 mg tablet 2-25 by mouth ity of 14:58: daily. [address] Branch VITAMIN B 2020-0 Yes Take by Unive rs COMPLEX 2-25 mouth. ity of ORAL 14:58: [place] [address] Medical Branch traZODONE 2020-0 Yes 100mg Take 100 Uni vers 100 mg 2-25 mg by ity of tablet 14:58: mouth at [place] [address] bedtime. [facility] benztropine 2020-0 Yes 1mg Take 1 mg U nivers 1 mg tablet 2-25 by mouth ity of 14:58: daily. [address] Branch aripiprazol 2020-0 Yes 5mg Take [...] 2-24 by mouth ity of 17:16: daily. [place] 05 [facility] ARIPiprazol 2020-0 Yes 10mg [...] 2-24 by mouth ity of 17:16: daily. [place] 05 [facility] ARIPiprazol 2020-0 Yes 10mg [...] by ity of tablet 17:15: mouth at [place] [address] bedtime. [facility] DULOXETINE 2020-0 Yes 60mg [...] by ity of tablet 17:15: mouth at [place] 45 bedtime. [facility] DULOXETINE 2020-0 Yes 60mg Take 60 mg U nivers HCL 2-24 by mouth 3 ity of (CYMBALTA 17:15: (three) [place] ORAL) 45 times Medical daily. Branch VITAMIN B Yes Take by Unive rs COMPLEX 2-24 mouth. ity of ORAL 17:15: [place] 45 [facility] traZODONE 2019- Yes 100mg Take 100 Uni vers 100 mg 2-24 mg by ity of tablet 17:15: mouth at [place] [address] bedtime. [facility] OLANZapine 2020- No 20mg Take 20 mg [facility] 20 mg -24 10-24 by mouth ity of tablet 17:15: 00:00 at [place] 35 :00 bedtime. [facility] OLANZapine 2020- No 20mg Take 20 mg [facility] 20 mg 2-24 10-24 by mouth ity of tablet 17:15: 00:00 at [place] 35 :00 bedtime. [facility] OLANZapine 2019- 2020- No 20mg Take 20 mg [facility] 20 mg -24 10-24 by mouth ity of tablet 17:15: 00:00 at [place] 35 :00 bedtime. [facility] OLANZapine 2020- [...] ity of capsule 17:15: 00:00 by mouth [place] 09 :00 daily. [facility] DULoxetine 2020- No Take 3 Univ ers 30 mg 2-24 02-24 capsules ity of capsule 17:15: 00:00 by mouth [place] 09 :00 daily. [facility] DULoxetine 2020- No Take 3 Univ ers 30 mg 2-24 02-24 capsules ity of capsule 17:15: 00:00 by mouth [place] 09 :00 daily. [facility] metoprolol 2019- Yes [id number] 50mg Take 1 Un nneka succinate 2-24 tablet by ity o f XL 50 mg 24 00:00: mouth [place] hr tablet 00 daily. [facility] metoprolol 2020-0 Yes [id number] 50mg Take 1 Un nneka succinate 2-24 tablet by ity o f XL 50 mg 24 00:00: mouth [place] hr tablet 00 daily. [facility] metoprolol 2020-0 Yes [id number] 50mg Take 1 Un nneka succinate 2-24 tablet by ity o f XL 50 mg 24 00:00: mouth [place] hr tablet 00 daily. [facility] metoprolol 2020-0 Yes [id number] 50mg Take 1 Un nneka succinate 2-24 tablet by ity o f XL 50 mg 24 00:00: mouth [place] hr tablet 00 daily. [facility] metoprolol 2020-0 Yes [id number] 50mg Take 1 Un nneka succinate 2-24 tablet by ity o f XL 50 mg 24 00:00: mouth [place] hr tablet 00 daily. [facility] metoprolol 2020-0 Yes [id number] 50mg Take 1 Un nneka succinate 2-24 tablet by ity o f XL 50 mg 24 00:00: mouth [place] hr tablet 00 daily. [facility] metoprolol 2020-0 Yes [id number] 50mg Take 1 Un nneka succinate 2-24 tablet by ity o f XL 50 mg 24 00:00: mouth [place] hr tablet 00 daily. [facility] metoprolol 2020-0 Yes [id number] 50mg Take 1 Un nneka succinate 2-24 tablet by ity o f XL 50 mg 24 00:00: mouth [place] hr tablet 00 daily. [facility] metoprolol 2020-0 Yes [id number] 50mg Take 1 Un nneka succinate 2-24 tablet by ity o f XL 50 mg 24 00:00: mouth [place] hr tablet 00 daily. [facility] metoprolol 2020-0 Yes [id number] 50mg Take 1 Un nneka succinate 2-24 tablet by ity o f XL 50 mg 24 00:00: mouth [place] hr tablet 00 daily. [facility] metoprolol 2020-0 2020- No [id number] 50mg Take 1 U nivers succinate 2-24 07-09 tablet by ity of XL 50 mg 24 00:00: 00:00 [place] hr tablet 00 :00 daily. [facility] metoprolol 2020-0 2020- No [id number] 50mg Take 1 U nivers succinate 2-24 07- tablet by ity of XL 50 mg 24 00:00: 00:00 mouth [place] hr tablet 00 :00 daily. [facility] metoprolol 2019-0 2020- No [id number] 50mg Take 1 U nivers succinate -23 03- tablet by ity of XL 50 mg 24 00:00: 00:00 [place] hr tablet 00 :00 daily. [facility] metoprolol 2019-0 2020- No [id number] 50mg Take 1 U nivers succinate 10-24- tablet by ity of XL 50 mg 24 00:00: 00:00 mouth [place] hr tablet 00 :00 daily. [facility] hydroCHLORO 2020-0 Yes [id number] 25mg Take 1 [facility] thiazide 25 1-30 tablet by ity of mg tablet 00:00: mouth [place] 00 daily. [facility] meloxicam 2019-0 Yes [id number] 15mg Take 1 U nivers 15 mg 1-30 tablet by ity of tablet 00:00: mouth [place] 00 daily. [facility] metoprolol 2020-0 Yes [id number] 25mg Take 1 Un nneka succinate 1-30 tablet by ity o f XL 25 mg 24 00:00: mouth [place] hr tablet 00 daily. [facility] pregabalin 2020-0 Yes [id number] 150mg Take 1 [facility] (LYRICA) 1-30 capsule by ity o f 150 mg 00:00: mouth 2 [place] capsule 00 (two) Medical times Branch daily. hydroCHLORO 2020-0 Yes [id number] 25mg Take 1 [facility] thiazide 25 1-30 tablet by ity of mg tablet 00:00: mouth [place] 00 daily. [facility] meloxicam 2020-0 Yes [id number] 15mg Take 1 U nivers 15 mg 1-30 tablet by ity of tablet 00:00: mouth [place] 00 daily. [facility] metoprolol 2020-0 Yes [id number] 25mg Take 1 Un nneka succinate 1-30 tablet by ity o f XL 25 mg 24 00:00: mouth [place] hr tablet 00 daily. [facility] pregabalin 2020-0 Yes [id number] 150mg Take 1 [facility] (LYRICA) 1-30 capsule by ity o f 150 mg 00:00: mouth 2 [place] capsule 00 (two) Medical times Branch daily. hydroCHLORO 2020-0 Yes [id number] 25mg Take 1 [facility] thiazide 25 1-30 tablet by ity of mg tablet 00:00: mouth [place] 00 daily. [facility] meloxicam 2020-0 Yes [id number] 15mg Take 1 U nivers 15 mg 1-30 tablet by ity of tablet 00:00: mouth [place] 00 daily. [facility] pregabalin 2020-0 Yes [id number] 150mg Take 1 [facility] (LYRICA) 1-30 capsule by ity o f 150 mg 00:00: mouth 2 [place] capsule 00 (two) Medical times Branch daily. hydroCHLORO 2020-0 Yes [id number] 25mg Take 1 [facility] thiazide 25 1-30 tablet by ity of mg tablet 00:00: mouth [place] 00 daily. [facility] meloxicam 2020-0 Yes [id number] 15mg Take 1 U nivers 15 mg 1-30 tablet by ity of tablet 00:00: mouth [place] 00 daily. [facility] pregabalin 2020-0 Yes [id number] 150mg Take 1 [facility] (LYRICA) 1-30 capsule by ity o f 150 mg 00:00: mouth 2 [place] capsule 00 (two) Medical times Branch daily. hydroCHLORO 2020-0 Yes [id number] 25mg Take 1 [facility] thiazide 25 1-30 tablet by ity of mg tablet 00:00: mouth [place] 00 daily. [facility] meloxicam 2020-0 Yes [id number] 15mg Take 1 U nivers 15 mg 1-30 tablet by ity of tablet 00:00: mouth [place] 00 daily. [facility] pregabalin 2020-0 Yes [id number] 150mg Take 1 [facility] (LYRICA) 1-30 capsule by ity o f 150 mg 00:00: mouth 2 [place] capsule 00 (two) Medical times Branch daily. hydroCHLORO 2020-0 Yes [id number] 25mg Take 1 [facility] thiazide 25 1-30 tablet by ity of mg tablet 00:00: mouth [place] 00 daily. [facility] meloxicam 2020-0 Yes [id number] 15mg Take 1 U nivers 15 mg 1-30 tablet by ity of tablet 00:00: mouth [place] 00 daily. [facility] pregabalin 2020-0 Yes [id number] 150mg Take 1 [facility] (LYRICA) 1-30 capsule by ity o f 150 mg 00:00: mouth 2 [place] capsule 00 (two) Medical times Branch daily. hydroCHLORO 2020-0 Yes [id number] 25mg Take 1 [facility] thiazide 25 1-30 tablet by ity of mg tablet 00:00: mouth [place] 00 daily. [facility] meloxicam 2020-0 Yes [id number] 15mg Take 1 U nivers 15 mg 1-30 tablet by ity of tablet 00:00: mouth [place] 00 daily. [facility] pregabalin 2020-0 Yes [id number] 150mg Take 1 [facility] (LYRICA) 1-30 capsule by ity o f 150 mg 00:00: mouth 2 [place] capsule 00 (two) Medical times Branch daily. hydroCHLORO 2020-0 Yes [id number] 25mg Take 1 [facility] thiazide 25 1-30 tablet by ity of mg tablet 00:00: mouth [place] 00 daily. [facility] meloxicam 2020-0 Yes [id number] 15mg Take 1 U nivers 15 mg 1-30 tablet by ity of tablet 00:00: mouth [place] 00 daily. [facility] pregabalin 2020-0 Yes [id number] 150mg Take 1 [facility] (LYRICA) 1-30 capsule by ity o f 150 mg 00:00: mouth 2 [place] capsule 00 (two) Medical times Branch daily. hydroCHLORO 2020-0 Yes [id number] 25mg Take 1 [facility] thiazide 25 1-30 tablet by ity of mg tablet 00:00: mouth [place] 00 daily. [facility] meloxicam 2020-0 Yes [id number] 15mg Take 1 U nivers 15 mg 1-30 tablet by ity of tablet 00:00: mouth [place] 00 daily. [facility] pregabalin 2020-0 Yes [id number] 150mg Take 1 [facility] (LYRICA) 1-30 capsule by ity o f 150 mg 00:00: mouth 2 [place] capsule 00 (two) Medical times Branch daily. hydroCHLORO 2020-0 Yes [id number] 25mg Take 1 [facility] thiazide 25 1-30 tablet by ity of mg tablet 00:00: mouth [place] 00 daily. [facility] meloxicam 2020-0 Yes [id number] 15mg Take 1 U nivers 15 mg 1-30 tablet by ity of tablet 00:00: mouth [place] 00 daily. [facility] pregabalin 2020-0 Yes [id number] 150mg Take 1 [facility] (LYRICA) 1-30 capsule by ity o f 150 mg 00:00: mouth 2 [place] capsule 00 (two) Medical times Branch daily. hydroCHLORO 2020-0 Yes [id number] 25mg Take 1 [facility] thiazide 25 1-30 tablet by ity of mg tablet 00:00: mouth [place] 00 daily. [facility] meloxicam 2020-0 Yes [id number] 15mg Take 1 U nivers 15 mg 1-30 tablet by ity of tablet 00:00: mouth [place] 00 daily. [facility] pregabalin 2020-0 Yes [id number] 150mg Take 1 [facility] (LYRICA) 1-30 capsule by ity o f 150 mg 00:00: mouth 2 [place] capsule 00 (two) Medical times Branch daily. hydroCHLORO 2020-0 Yes [id number] 25mg Take 1 [facility] thiazide 25 1-30 tablet by ity of mg tablet 00:00: mouth [place] 00 daily. [facility] meloxicam 2020-0 Yes [id number] 15mg Take 1 U nivers 15 mg 1-30 tablet by ity of tablet 00:00: mouth [place] 00 daily. [facility] pregabalin 2020-0 Yes [id number] 150mg Take 1 [facility] (LYRICA) 1-30 capsule by ity o f 150 mg 00:00: mouth 2 [place] capsule 00 (two) Medical times Branch daily. meloxicam 2020-0 Yes [id number] 15mg Take 1 U nivers 15 mg 1-30 tablet by ity of tablet 00:00: mouth [place] 00 daily. [facility] pregabalin 2020-0 Yes [id number] 150mg Take 1 [facility] (LYRICA) 1-30 capsule by ity o f 150 mg 00:00: mouth 2 [place] capsule 00 (two) Medical times Branch daily. meloxicam 2020-0 Yes [id number] 15mg Take 1 U nivers 15 mg 1-30 tablet by ity of tablet 00:00: mouth [place] 00 daily. Medical Branch pregabalin 2020-0 Yes [id number] 150mg Take 1 [facility] (LYRICA) 1-30 capsule by ity o f 150 mg 00:00: mouth 2 [place] capsule 00 (two) Medical times Branch daily. meloxicam 2020-0 Yes [id number] 15mg Take 1 U nivers 15 mg 1-30 tablet by ity of tablet 00:00: mouth [place] 00 daily. [facility] pregabalin 2020-0 Yes [id number] 150mg Take 1 [facility] (LYRICA) 1-30 capsule by ity o f 150 mg 00:00: mouth 2 [place] capsule 00 (two) Medical times Branch daily. meloxicam 2020-0 Yes [id number] 15mg Take 1 U nivers 15 mg 1-30 tablet by ity of tablet 00:00: mouth [place] 00 daily. [facility] pregabalin 2020-0 Yes [id number] 150mg Take 1 [facility] (LYRICA) 1-30 capsule by ity o f 150 mg 00:00: mouth 2 [place] capsule 00 (two) Medical times Branch daily. meloxicam 2020-0 Yes [id number] 15mg Take 1 U nivers 15 mg 1-30 tablet by ity of tablet 00:00: mouth [place] 00 daily. [facility] pregabalin 2020-0 Yes [id number] 150mg Take 1 [facility] (LYRICA) 1-30 capsule by ity o f 150 mg 00:00: mouth 2 [place] capsule 00 (two) Medical times Branch daily. meloxicam 2020-0 Yes [id number] 15mg Take 1 U nivers 15 mg 1-30 tablet by ity of tablet 00:00: mouth [place] 00 daily. [facility] pregabalin 2020-0 Yes [id number] 150mg Take 1 [facility] (LYRICA) 1-30 capsule by ity o f 150 mg 00:00: mouth 2 [place] capsule 00 (two) Medical times Branch daily. meloxicam 2020-0 Yes [id number] 15mg Take 1 U nivers 15 mg 1-30 tablet by ity of tablet 00:00: mouth [place] 00 daily. [facility] pregabalin 2020-0 Yes [id number] 150mg Take 1 [facility] (LYRICA) 1-30 capsule by ity o f 150 mg 00:00: mouth 2 [place] capsule 00 (two) Medical times Branch daily. meloxicam 2020-0 Yes [id number] 15mg Take 1 U nivers 15 mg 1-30 tablet by ity of tablet 00:00: mouth [place] 00 daily. [facility] pregabalin 2020-0 Yes [id number] 150mg Take 1 [facility] (LYRICA) 1-30 capsule by ity o f 150 mg 00:00: mouth 2 [place] capsule 00 (two) Medical times Branch daily. meloxicam 2020-0 Yes [id number] 15mg Take 1 U nivers 15 mg 1-30 tablet by ity of tablet 00:00: mouth [place] 00 daily. [facility] pregabalin 2020-0 Yes [id number] 150mg Take 1 [facility] (LYRICA) 1-30 capsule by ity o f 150 mg 00:00: mouth 2 [place] capsule 00 (two) Medical times Branch daily. meloxicam 2020-0 Yes [id number] 15mg Take 1 U nivers 15 mg 1-30 tablet by ity of tablet 00:00: mouth [place] 00 daily. [facility] pregabalin 2020-0 Yes [id number] 150mg Take 1 [facility] (LYRICA) 1-30 capsule by ity o f 150 mg 00:00: mouth 2 [place] capsule 00 (two) Medical times Branch daily. meloxicam 2020-0 Yes [id number] 15mg Take 1 U nivers 15 mg 1-30 tablet by ity of tablet 00:00: mouth [place] 00 daily. [facility] Branch pregabalin 2020-0 Yes [id number] 150mg Take 1 [facility] (LYRICA) 1-30 capsule by ity o f 150 mg 00:00: mouth 2 [place] capsule 00 (two) Medical times Branch daily. meloxicam 2020-0 Yes [id number] 15mg Take 1 U nivers 15 mg 1-30 tablet by ity of tablet 00:00: mouth [place] 00 daily. [facility] Branch pregabalin 2020-0 Yes [id number] 150mg Take 1 [facility] (LYRICA) 1-30 capsule by ity o f 150 mg 00:00: mouth 2 [place] capsule 00 (two) Medical times Branch daily. meloxicam 2020-0 Yes [id number] 15mg Take 1 U nivers 15 mg 1-30 tablet by ity of tablet 00:00: mouth [place] 00 daily. Medical Branch pregabalin 2020-0 Yes [id number] 150mg Take 1 [facility] (LYRICA) 1-30 capsule by ity o f 150 mg 00:00: mouth 2 [place] capsule 00 (two) Medical times Branch daily. meloxicam 2020-0 Yes [id number] 15mg Take 1 U nivers 15 mg 1-30 tablet by ity of tablet 00:00: mouth [place] 00 daily. [facility] Branch pregabalin 2020-0 Yes [id number] 150mg Take 1 [facility] (LYRICA) 1-30 capsule by ity o f 150 mg 00:00: mouth 2 [place] capsule 00 (two) Medical times Branch daily. meloxicam 2020-0 Yes [id number] 15mg Take 1 U nivers 15 mg 1-30 tablet by ity of tablet 00:00: mouth [place] 00 daily. Medical Branch pregabalin 2020-0 Yes [id number] 150mg Take 1 [facility] (LYRICA) 1-30 capsule by ity o f 150 mg 00:00: mouth 2 [place] capsule 00 (two) Medical times Branch daily. meloxicam 2020-0 Yes [id number] 15mg Take 1 U nivers 15 mg 1-30 tablet by ity of tablet 00:00: mouth [place] 00 daily. [facility] Branch pregabalin 2020-0 Yes [id number] 150mg Take 1 [facility] (LYRICA) 1-30 capsule by ity o f 150 mg 00:00: mouth 2 [place] capsule 00 (two) Medical times Branch daily. meloxicam 2020-0 Yes [id number] 15mg Take 1 U nivers 15 mg 1-30 tablet by ity of tablet 00:00: mouth [place] 00 daily. [facility] Branch pregabalin 2020-0 Yes [id number] 150mg Take 1 [facility] (LYRICA) 1-30 capsule by ity o f 150 mg 00:00: mouth 2 [place] capsule 00 (two) Medical times Branch daily. meloxicam 2020-0 Yes [id number] 15mg Take 1 U nivers 15 mg 1-30 tablet by ity of tablet 00:00: mouth [place] 00 daily. Medical Branch meloxicam 2020-0 Yes [id number] 15mg Take 1 U nivers 15 mg 1-30 tablet by ity of tablet 00:00: mouth [place] 00 daily. [facility] Branch meloxicam 2020-0 Yes [id number] 15mg Take 1 U nivers 15 mg 1-30 tablet by ity of tablet 00:00: mouth [place] 00 daily. [facility] Branch meloxicam 2020-0 Yes [id number] 15mg Take 1 U nivers 15 mg 1-30 tablet by ity of tablet 00:00: mouth [place] 00 daily. [facility] Branch meloxicam 2020-0 Yes [id number] 15mg Take 1 U nivers 15 mg 1-30 tablet by ity of tablet 00:00: mouth [place] 00 daily. [facility] Branch meloxicam 2020-0 Yes [id number] 15mg Take 1 U nivers 15 mg 1-30 tablet by ity of tablet 00:00: mouth [place] 00 daily. Medical Branch meloxicam 2019-0 Yes [id number] 15mg Take 1 U nivers 15 mg 1-30 tablet by ity of tablet 00:00: mouth [place] 00 daily. Medical Branch meloxicam 2019-0 Yes [id number] 15mg Take 1 U nivers 15 mg 1-30 tablet by ity of tablet 00:00: mouth [place] 00 daily. Medical Branch pregabalin 2019- No [id number] 150mg Take 1 [facility] (LYRICA) -30 12-21 capsule by ity of 150 mg 00:00: 00:00 mouth 2 [place] capsule 00 :00 (two) Medical times Branch daily. hydroCHLORO 2019-2019- No [id number] 25mg Take 1 [facility] thiazide 25 -30 07-09 tablet by it y of mg tablet 00:00: 00:00 mouth [place] 00 :00 daily. Medical Branch hydroCHLORO 2019-2019- No [id number] 25mg Take 1 [facility] thiazide 25 30 -09 tablet by it y of mg tablet 00:00: 00:00 mouth [place] 00 :00 daily. Medical Branch hydroCHLORO 2019-2019- No [id number] 25mg Take 1 [facility] thiazide 25 -30 -09 tablet by it y of mg tablet 00:00: 00:00 mouth [place] 00 :00 daily. Medical Branch hydroCHLORO 2019- No [id number] 25mg Take 1 [facility] thiazide 25 -30 07-09 tablet by it y of mg tablet 00:00: 00:00 mouth [place] 00 :00 daily. Medical Branch metoprolol 2019- 2020- No [id number] 25mg Take 1 U nivers succinate -30 02-24 tablet by ity of XL 25 mg 24 00:00: 00:00 mouth [place] hr tablet 00 :00 daily. [facility] metoprolol 2019- 2020- No [id number] 25mg Take 1 U nivers succinate 1-30 02-24 tablet by ity of XL 25 mg 24 00:00: 00:00 mouth [place] hr tablet 00 :00 daily. [facility] Branch metoprolol 2019-2019- No [id number] 25mg Take 1 U nivers succinate 1-30 02-24 tablet by ity of XL 25 mg 24 00:00: 00:00 mouth [place] hr tablet 00 :00 daily. [facility] Branch aripiprazol 2018-08 Yes 5mg Take 5 mg U nivers e (ABILIFY 2-17 by mouth 2 ity of ORAL) 15:02: (two) [place] 33 times Medical daily. Branch aripiprazol 2018-08 Yes 5mg Take 5 mg U nivers e (ABILIFY 2-17 by mouth 2 ity of ORAL) 15:02: (two) [place] 33 times Medical daily. Branch aripiprazol 2018-08 Yes 5mg Take 5 mg U nivers e (ABILIFY 2-17 by mouth 2 ity of ORAL) 15:02: (two) [place] 33 times Medical daily. Branch aripiprazol 2018-08 Yes 5mg Take 5 mg U nivers e (ABILIFY 2-17 by mouth 2 ity of ORAL) 15:02: (two) [place] 33 times Medical daily. Branch VITAMIN B 2018-08 Yes Take by Unive rs COMPLEX 0-31 mouth. ity of ORAL 17:11: [address] Branch traZODONE 2018-08 Yes 100mg Take 100 Uni vers 100 mg 0-31 mg by ity of tablet 17:11: mouth at [place] [address] bedtime. Medical Branch VITAMIN B 2018-08 Yes Take by Unive rs COMPLEX 0-31 mouth. ity of ORAL 17:11: [address] Branch traZODONE 2018-08 Yes 100mg Take 100 Uni vers 100 mg 0-31 mg by ity of tablet 17:11: mouth at [place] [address] bedtime. Medical Branch VITAMIN B 2018-08 Yes Take by Unive rs COMPLEX 0-31 mouth. ity of ORAL 17:11: [place] [address] Medical Branch traZODONE 2018-08 Yes 100mg Take 100 Uni vers 100 mg 0-31 mg by ity of tablet 17:11: mouth at [place] [address] bedtime. Medical Branch VITAMIN B 2018-08 Yes Take by Unive rs COMPLEX 0-31 mouth. ity of ORAL 17:11: [address] Branch traZODONE 2018-08 Yes 100mg Take 100 Uni vers 100 mg 0-31 mg by ity of tablet 17:11: mouth at [place] [address] bedtime. Medical Branch traZODONE Yes 100mg Take 100 Uni vers 100 mg 8-29 mg by ity of tablet 19:24: mouth at [place] [address] bedtime. Medical Branch traZODONE [id number] Yes 100mg Take 100 Uni vers 100 mg 8-29 mg by ity of tablet 19:24: mouth at [place] [address] bedtime. Medical Branch traZODONE 0 Yes 100mg Take 100 Uni vers 100 mg 8-29 mg by ity of tablet 19:24: mouth at [place] [address] bedtime. Medical Branch traZODONE 0 Yes 100mg Take 100 Uni vers 100 mg 8-29 mg by ity of tablet 19:24: mouth at [place] [address] bedtime. Medical Branch traZODONE Yes 100mg Take 100 Uni vers 100 mg 8-29 mg by ity of tablet 19:24: mouth at [place] [address] bedtime. Medical Branch traZODONE Yes 100mg Take 100 Uni vers 100 mg 8-29 mg by ity of tablet 19:24: mouth at [place] [address] bedtime. Medical Branch benztropine Yes 1mg Take 1 mg U nivers 1 mg tablet 8-29 by mouth ity of 14:39: daily. [place] [address] Medical Branch ARIPiprazol Yes 10mg Take 10 [...] 8-29 by mouth ity of 14:39: daily. [place] [facility] ARIPiprazol Yes 10mg Take 10 [...] 8-29 by mouth ity of 14:39: daily. [address] ARIPiprazol Yes 10mg Take 10 mg [...] 8-29 by mouth ity of 14:39: daily. [address] Branch ARIPiprazol Yes 10mg Take 10 [...] 21 times Medical daily. Branch metoprolol Yes [id number] 25mg Take 1 Un nneka succinate 8-29 tablet by ity o f XL 25 mg 24 00:00: mouth [place] hr tablet 00 daily. Medical Branch hydroCHLORO Yes [id number] 25mg Take 1 [facility] thiazide 25 8-29 tablet by ity of mg tablet 00:00: mouth [place] 00 daily. Medical Branch meloxicam Yes [id number] 15mg Take 1 U nivers 15 mg 8-29 tablet by ity of tablet 00:00: mouth [place] 00 daily. Medical Branch metoprolol Yes [id number] 25mg Take 1 Un nneka succinate 8-29 tablet by ity o f XL 25 mg 24 00:00: mouth [place] hr tablet 00 daily. Medical Branch hydroCHLORO Yes [id number] 25mg Take 1 [facility] thiazide 25 8-29 tablet by ity of mg tablet 00:00: mouth [place] 00 daily. Medical Branch meloxicam Yes [id number] 15mg Take 1 U nivers 15 mg 8-29 tablet by ity of tablet 00:00: mouth [place] 00 daily. Medical Branch metoprolol [id number] Yes [id number] 25mg Take 1 Un nneka succinate 8-29 tablet by ity o f XL 25 mg 24 00:00: mouth [place] hr tablet 00 daily. Medical Branch hydroCHLORO 2018-0 Yes [id number] 25mg Take 1 Univers thiazide 25 8-29 tablet by ity of mg tablet 00:00: mouth [place] 00 daily. [facility] meloxicam Yes [id number] 15mg Take 1 U nivers 15 mg 8-29 tablet by ity of tablet 00:00: mouth [place] 00 daily. [facility] metoprolol Yes [id number] 25mg Take 1 Un nneka succinate 8-29 tablet by ity o f XL 25 mg 24 00:00: mouth [place] hr tablet 00 daily. [facility] hydroCHLORO Yes [id number] 25mg Take 1 Univers thiazide 25 8-29 tablet by ity of mg tablet 00:00: mouth [place] 00 daily. [facility] meloxicam Yes [id number] 15mg Take 1 U nivers 15 mg 8-29 tablet by ity of tablet 00:00: mouth [place] 00 daily. [facility] metoprolol Yes [id number] 25mg Take 1 Un nneka succinate 8-29 tablet by ity o f XL 25 mg 24 00:00: mouth [place] hr tablet 00 daily. [facility] hydroCHLORO 2018- Yes [id number] 25mg Take 1 Univers thiazide 25 8-29 tablet by ity of mg tablet 00:00: mouth [place] 00 daily. [facility] meloxicam 0 Yes [id number] 15mg Take 1 U nivers 15 mg 8-29 tablet by ity of tablet 00:00: mouth [place] 00 daily. [facility] metoprolol 20190 Yes [id number] 25mg Take 1 Un nneka succinate 8-29 tablet by ity o f XL 25 mg 24 00:00: mouth [place] hr tablet 00 daily. [facility] hydroCHLORO 0 Yes [id number] 25mg Take 1 [facility] thiazide 25 8-29 tablet by ity of mg tablet 00:00: mouth [place] 00 daily. [facility] meloxicam 0 Yes [id number] 15mg Take 1 U nivers 15 mg 8-29 tablet by ity of tablet 00:00: mouth [place] 00 daily. [facility] metoprolol Yes [id number] 25mg Take 1 Un nnkea succinate 8-29 tablet by ity o f XL 25 mg 24 00:00: mouth [place] hr tablet 00 daily. [facility] hydroCHLORO Yes [id number] 25mg Take 1 [facility] thiazide 25 8-29 tablet by ity of mg tablet 00:00: mouth [place] 00 daily. [facility] meloxicam Yes [id number] 15mg Take 1 U nivers 15 mg 8-29 tablet by ity of tablet 00:00: mouth [place] 00 daily. [facility] metoprolol 2020- No [id number] 25mg Take 1 U nivers succinate 8-28 09-30 tablet by ity of XL 25 mg 24 00:00: [place] :00 daily. [facility] hydroCHLORO 2020- No [id number] 25mg Take 1 Univers thiazide 25 -28 09-30 tablet by it y of mg tablet 00:00: 00:00 mouth [place] 00 :00 daily. [facility] meloxicam 2020- No [id number] 15mg Take 1 Univers 15 mg 8-28 09-30 tablet by ity of tablet 00:00: 00:00 mouth [place] 00 :00 daily. [facility] metoprolol 2020- No [id number] 25mg Take 1 U nivers succinate 8-28 09-30 tablet by ity of XL 25 mg 24 00:00: 00:[place] :00 daily. [facility] hydroCHLORO 2020- No [id number] 25mg Take 1 Univers thiazide 25 -28 09-30 tablet by it y of mg tablet 00:00: 00:00 mouth [place] 00 :00 daily. [facility] meloxicam 2020- No [id number] 15mg Take 1 [facility] 15 mg 8-28 09-30 tablet by ity of tablet 00:00: 00:00 mouth [place] 00 :00 daily. Medical [facility] Dose 2018-0 No Unknown 7- 00:00: 00 Dose 2019-0 No Unknown 7- 00:00: 00 Dose 2019-0 No Unknown 7- 00:00: 00 Dose 2019-0 No Unknown 7- 00:00: 00 Dose 2018-0 No Unknown 03-29 00:00: 00 Dose 2019-0 No Unknown 03-29 00:00: 00 METOPROLOL 2019- No [id number] TAKE 1 U nivers SUCCINATE 7-06 07-29 TABLET BY ity of XL 25 mg 24 00:00: 00:[place]TH [place] tablet 00 :00 EVERY DAY Medic al Branch METOPROLOL 2019- No [id number] TAKE 1 U nivers SUCCINATE 7-10 -29 TABLET BY ity of XL 25 mg 24 00:00: 00:[place]TH [place] tablet 00 :00 EVERY DAY Medic al Branch hydroCHLORO 2019- No [id number] 25mg Take 1 [facility] thiazide 25 5-30 -29 tablet by it y of mg tablet 00:00: 00:00 mouth [place] 00 :00 daily. [facility] meloxicam 2019- No [id number] 7.5mg Take 1 Univers (MOBIC) 7.5 -30 -29 tablet by it y of mg tablet 00:00: 00:00 mouth [place] 00 :00 daily. [facility] hydroCHLORO 2019- No [id number] 25mg Take 1 [facility] thiazide 25 -30 -29 tablet by it y of mg tablet 00:00: 00:00 mouth [place] 00 :00 daily. [facility] meloxicam 2019- No [id number] 7.5mg Take 1 Univers (MOBIC) 7.5 5-30 [...] by mouth ity of tablet 20:00: at [place] 25 bedtime. Medical [facility] aripiprazol Yes 5mg [...] by mouth ity of tablet 20:00: at [place] 25 bedtime. Medical [facility] DULOXETINE 2019-0 Yes 60mg Take 60 mg U nivers HCL 4-23 by mouth 3 ity of (CYMBALTA 20:00: (three) [place] ORAL) 25 times Medical daily. Branch OLANZapine 2019-0 Yes 20mg Take 20 mg U nivers 20 mg 4-23 by mouth ity of tablet 20:00: at [place] 25 bedtime. Medical Branch DULOXETINE 2019-0 Yes 60mg Take 60 mg U nivers HCL 4-23 by mouth 3 ity of (CYMBALTA 20:00: (three) [place] ORAL) 25 times Medical daily. Branch OLANZapine 2019-0 Yes 20mg Take 20 mg U nivers 20 mg 4-23 by mouth ity of tablet 20:00: at [place] 25 bedtime. Medical Branch DULOXETINE 2019-0 Yes 60mg Take 60 mg U nivers HCL 4-23 by mouth 3 ity of (CYMBALTA 20:00: (three) [place] ORAL) 25 times Medical daily. Branch OLANZapine 2019-0 Yes 20mg Take 20 mg U nivers 20 mg 4-23 by mouth ity of tablet 20:00: at [place] [address] bedtime. Medical Branch DULOXETINE 2019-0 Yes 60mg Take 60 mg U nivers HCL 4-23 by mouth 3 ity of (CYMBALTA 20:00: (three) [place] ORAL) 25 times Medical daily. Branch OLANZapine 2019-0 Yes 20mg Take 20 mg U nivers 20 mg 4-23 by mouth ity of tablet 20:00: at [place] 25 bedtime. Medical Branch aripiprazol 2019-0 Yes [...] by mouth ity of tablet 20:00: at [place] 25 bedtime. Medical Branch aripiprazol 2019-0 Yes [...] by mouth ity of tablet 20:00: at [place] 25 bedtime. Medical Branch aripiprazol 2019-0 Yes [...] by mouth ity of tablet 20:00: at [place] 25 bedtime. Medical Branch aripiprazol 2019-0 Yes 5mg Take 5 mg U nivers e (ABILIFY 4-23 by mouth 2 ity of ORAL) 20:00: (two) [place] 25 times Medical daily. Branch VITAMIN B 2019-0 Yes Take by Unive rs COMPLEX 3-28 mouth. ity of ORAL 16:11: [place] [address] Medical Branch VITAMIN B 2019-0 Yes Take by Unive rs COMPLEX 3-28 mouth. ity of ORAL 16:11: [address] VITAMIN B 0 Yes Take by Unive rs COMPLEX 3-28 mouth. ity of ORAL 16:11: [address] VITAMIN B 0 Yes Take by Unive rs COMPLEX 3-28 mouth. ity of ORAL 16:11: [address] VITAMIN B Yes Take by Unive rs COMPLEX 3-28 mouth. ity of ORAL 16:11: [address] VITAMIN B Yes Take by Unive rs COMPLEX 3-28 mouth. ity of ORAL 16:11: [address] amlodipine 2019-0 No 1mg 5 mg [...] 8-15 tablet 00:00: 00 cyclobenzap 2018-0 Yes [id number] Bid prn Univers rine 10 mg 8-02 ity of tablet 00:00: [address] cyclobenzap 2018-0 Yes [id number] Bid prn Univers rine 10 mg 8-02 ity of tablet 00:00: [address] Branch cyclobenzap 2018-0 Yes [id number] Bid prn Univers rine 10 mg 8-02 ity of tablet 00:00: [address] cyclobenzap 2018-0 Yes [id number] Bid prn Univers rine 10 mg 8-02 ity of tablet 00:00: [address] Branch cyclobenzap 2018-0 Yes [id number] Bid prn Univers rine 10 mg 8-02 ity of tablet 00:00: [address] cyclobenzap 2018-0 Yes [id number] Bid prn Univers rine 10 mg 8-02 ity of tablet 00:00: [address] cyclobenzap 2018-0 Yes [id number] Bid prn Univers rine 10 mg 8-02 ity of tablet 00:00: [address] cyclobenzap 2018-0 Yes [id number] Bid prn Univers rine 10 mg 8-02 ity of tablet 00:00: [place] 00 [facility] Branch cyclobenzap 2018-0 Yes [id number] Bid prn Univers rine 10 mg 8- ity of tablet 00:00: [place] 00 [facility] cyclobenzap 2018-0 Yes [id number] Bid prn Univers rine 10 mg 8- ity of tablet 00:00: [place] 00 Medical [facility] cyclobenzap 2018-0 2020- No [id number] Bid prn Univers rine 10 mg 04-01 ity of tablet 00:00: 00:00 [place] 00 :00 Medical Branch cyclobenzap 2018-0 2020- No [id number] Bid prn Univers rine 10 mg 04-01 ity of tablet 00:00: 00:00 [place] 00 :00 Medical Branch cyclobenzap 2018-0 2020- No [id number] Bid prn Univers rine 10 mg 04-01 ity of tablet 00:00: 00:00 [place] 00 :00 Medical Branch amlodipine 2018-0 No [...] 5-19 capsule 00:00: 00 DULoxetine 2016-0 Yes [id number] Emanuel sey HCl 30 MG 3-16 Seybold oral 00:00: - Capsule 00 Externa Delayed l Release Sprinkle hydrOXYzine 2016-0 Yes [id number] Ke lsey HCl 25 MG 3-16 Seybold oral Tablet 00:00: - 00 Externa l DULoxetine 2016-0 Yes [id number] Emanuel sey HCl 30 MG 3-16 Seybold oral 00:00: - Capsule 00 Externa Delayed l Release Sprinkle hydrOXYzine 2016-0 Yes [id number] Ke lsey HCl 25 MG 3-16 Seybold oral Tablet 00:00: - 00 Externa l DULoxetine 2016-0 Yes Jelena HCl 30 MG 3-16 Seybold oral 00:00: - Capsule 00 Externa Delayed l Release Sprinkle hydrOXYzine 2016-0 Yes Jelena HCl 25 MG 3-16 Seybold oral Tablet 00:00: - 00 Externa l DULoxetine 2016-0 Yes [id number] Emanuel sey HCl 30 MG 3-16 Seybold oral 00:00: - Capsule 00 Externa Delayed l Release Sprinkle hydrOXYzine 2016-0 Yes [id number] Ke lsey HCl 25 MG 3-16 Seybold oral Tablet 00:00: - 00 Externa l DULoxetine 2016-0 Yes [id number] Eamnuel sey HCl 30 MG 3-16 Seybold oral 00:00: - Capsule 00 Externa Delayed l Release Sprinkle hydrOXYzine 2016-0 Yes [id number] Ke lsey HCl 25 MG 3-16 Seybold oral Tablet 00:00: - 00 Externa l DULoxetine 2016-0 Yes [id number] Emanuel sey HCl 30 MG 3-16 Seybold oral 00:00: - Capsule 00 Externa Delayed l Release Sprinkle hydrOXYzine 2015- Yes [id number] Ke lsey HCl 25 MG 3-16 Seybold oral Tablet 00:00: - 00 Externa l DULoxetine 2015-0 3- No [id number] Ke lsey HCl 30 MG 3-16 04-24 Seybold oral 00:00: 00:00 - Capsule 00 :00 Externa Delayed l Release Sprinkle hydrOXYzine 2015-0 3- No [id number] K elsey HCl 25 MG 3-16 04-24 [...] Bradley Protein, Pf Covid-19 Vaccine 2021-09-07 Completed Jelnea newman Moderna (Spikevax), 00:00:00 - Ext ernal Mrna-lnp, Bradley Protein, Pf Pneumococcal Vaccine, 2019-04-29 Completed Emanuel Ibrahim Polysaccharide 00:00:00 - External Tdap- (Boostrix, 2019-04-29 [...] Guevaraybo ld Papillomavirus) 00:00:00 - Externa l Pneumococcal [...] Externa l Pneumococcal Vaccine, 2009-04-17 Completed Emanuel woodrad Seybold Conjugate 7 00:00:00 - External DTaP [...] Completed Jelena Seyb old Mcv4,unspecified 00:00:00 - 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 Hepatitis A 2008-02-18 Completed Jelena Seybol d 00:00:00 - External HPV 4 (Human 2008-02-18 Completed Jelena Seybo ld Papillomavirus) 00:00:00 - Externa l Meningococcal 2008-02-18 Completed Jelena Seyb old Mcv4,unspecified 00:00:00 - 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 Hepatitis A 2008-02-18 Completed Jelena Seybol d 00:00:00 - External HPV 4 (Human 2008-02-18 Completed Jelena Seybo ld Papillomavirus) 00:00:00 - Externa l Meningococcal 2008-02-18 Completed Jelena Seyb old Mcv4,unspecified 00:00:00 - 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 Hepatitis A 2008-02-18 Completed Jelena Seybol d 00:00:00 - External Hepatitis A 2008-02-18 Completed Jelena Seybol d 00:00:00 - External HPV 4 (Human 2008-02-18 Completed Jelena Seybo ld Papillomavirus) 00:00:00 - Externa l Meningococcal 2008-02-18 Completed Jelena Seyb old Mcv4,unspecified 00:00:00 - 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 Hepatitis A 2008-02-18 Completed Jelena Seybol d 00:00:00 - External HPV 4 (Human 2008-02-18 Completed Jelena Seybo ld Papillomavirus) 00:00:00 - Externa l Meningococcal 2008-02-18 Completed Jelena Seyb old Mcv4,unspecified 00:00:00 - 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 HPV 4 (Human 2008-02-18 Completed Jelena Seybo ld Papillomavirus) 00:00:00 - Externa l Meningococcal 2008-02-18 Completed Jelena Seyb old Mcv4,unspecified 00:00:00 - 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 Hepatitis A 2008-02-18 Completed Jelena Seybol d 00:00:00 - External HPV 4 (Human 2008-02-18 Completed Jelena Seybo ld Papillomavirus) 00:00:00 - Externa l Meningococcal 2008-02-18 Completed Jelena Seyb old Mcv4,unspecified 00:00:00 - 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 Hepatitis A 2008-02-18 Completed Jelena Seybol d 00:00:00 - External HPV 4 (Human 2008-02-18 Completed Jelena Seybo ld Papillomavirus) 00:00:00 - Externa l Meningococcal 2008-02-18 Completed Jelena Seyb old Mcv4,unspecified 00:00:00 - 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 Hepatitis A 2008-02-18 Completed Jelena Seybol d 00:00:00 - External HPV 4 (Human 2008-02-18 Completed Jelena Seybo ld Papillomavirus) 00:00:00 - Externa l Meningococcal 2008-02-18 Completed Jelena Seyb old Mcv4,unspecified 00:00:00 - 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 Td (adult), 2 2006-05-25 Completed [...] adsorbed Td (adult), 2 2006-05-25 Completed Jelena newman tetanus toxoid, 00:00:00 - Externa l preservative free, adsorbed Varicella Vaccine 2002-04-21 Completed Jelena Ibrahim 00:00:00 - External Varicella Vaccine 2002-04-21 Completed Jelena Guevaraybmarcel 00:00:00 - External Varicella Vaccine 2002-04-21 Completed Jelena Guevaraybmarcel 00:00:00 - External Varicella Vaccine 2002-04-21 Completed Jelena Guevaraybmarcel 00:00:00 - External Varicella Vaccine 2002-04-21 Completed Jelena Guevaraybmarcel 00:00:00 [...] - Exter nal DTP- 1997-04-05 Completed Jelena bIrahim Diphtheria,Tetanus,Pe 00:00:00 - E xternal rtussis OPV- [...] Exter nal Hepatitis B, 1993 Completed Jelena tiffanyo ld Unspecified 00:00:00 - External Hepatitis B, 1993 Completed Jelena tiffanyo ld Unspecified 00:00:00 - External Hepatitis B, 1993 Completed Jelena ybo ld Unspecified 00:00:00 - External Hepatitis B, 1993 Completed Jelena Seybo ld Unspecified 00:00:00 - External Hepatitis B, 1993 Completed Jelena ybo ld Unspecified 00:00:00 - External Hepatitis B, 1993 Completed Jelena ybo ld Unspecified 00:00:00 - External Hepatitis B, 1993 Completed Jelena ybo ld Unspecified 00:00:00 - External Hepatitis B, 1993 Completed Jelena ybo ld Unspecified 00:00:00 - External Hepatitis B, 1993 Completed Jelena Setiffanyo ld Unspecified 00:00:00 - External Vital Signs Vital Name Observation Time Observation Value Comments Source Systolic blood 2023-01-28 15:56:00 144 mm[Hg] Jelena Seybold - pressure External Diastolic blood 2023-01-28 15:56:00 92 mm[Hg] Beth booth Seybold - pressure External Heart rate 2023-01-28 15:56:00 80 /min Jelenalit shahbold - External Respiratory rate 2023-01-28 15:56:00 16 /min Ashlie shah Seybold - External Systolic blood 2022-12-29 14:50:00 149 mm[Hg] Jelena Seybold - pressure External Diastolic blood 2022-12-29 14:50:00 90 mm[Hg] Beth y Seybold - pressure External Heart rate 2022-12-29 14:50:00 78 /min Jelena S eybold - External Body temperature 2022-12-29 14:50:00 37.39 Mera Ashlie ey Seybold - External Respiratory rate 2022-12-29 14:50:00 15 /min Ashlie shah Seybold - External Body height 2022-12-29 14:50:00 160 cm Jelena Leeroy shahbold - External Body weight 2022-12-29 14:50:00 130.182 kg Jelena Leeroy shahbold - External BMI 2022-12-29 14:50:00 50.84 [...] saturation in 2022-12-22 14:00:00 97 /min Jelena Umamarcel - Arterial blood by [...] External Respiratory rate 2022-10-10 14:33:00 15 /min Ashlei ey Seybold - External Body height 2022-10-10 [...] Body weight 2022-09-09 14:45:00 128.822 kg Jelena shahboconstance - External BMI 2022-09-09 14:45:00 50.31 kg/m2 Jelena shahboconstance - External Oxygen saturation in 2022-09-09 14:45:00 99 /min Jelena Ibrahim - Arterial blood by External Pulse oximetry Systolic blood 2020-09-07 15:09:00 126 mm[Hg] Univer sity of pressure [place] [facility] Diastolic blood 2020-09-07 15:09:00 88 mm[Hg] Unive rsity of pressure [place] [facility] Heart rate 2020-09-07 15:09:00 76 /min [facility]i [facility] [place] [facility] Body height 2020-09-07 15:09:00 160 cm [facility] [place] [facility] Body weight 2020-09-07 15:09:00 114.306 kg [facility] [place] [facility] BMI 2020-09-07 15:09:00 44.64 kg/m2 [facility] [place] [facility] Systolic blood 2020-09-07 15:09:00 126 mm[Hg] Univer sity of pressure [place] [facility] Diastolic blood 2020-09-07 15:09:00 88 mm[Hg] Unive rsity of pressure [place] [facility] Heart rate 2020-09-07 15:09:00 76 /min [facility] [place] [facility] Body height 2020-09-07 15:09:00 160 cm [facility] [place] [facility] Body weight 2020-09-07 15:09:00 114.306 kg [facility] [place] [facility] BMI 2020-09-07 15:09:00 44.64 kg/m2 [facility] [place] [facility] Respiratory rate 2020-08-02 16:44:00 20 /min Univ ersity of [place] [facility] Body height 2020-08-02 16:44:00 160 cm [facility] [place] [facility] Body weight 2020-08-02 16:44:00 114.352 kg [facility] [place] [facility] BMI 2020-08-02 16:44:00 44.66 kg/m2 [facility] [place] [facility] Systolic blood 2020-08-02 16:44:00 113 mm[Hg] Univer sity of pressure [place] [facility] Diastolic blood 2020-08-02 16:44:00 66 mm[Hg] Unive rsity of pressure [place] [facility] Heart rate 2020-08-02 16:44:00 76 /min [facility]i [facility] [place] [facility] Body temperature 2020-08-02 16:44:00 36 Mera Univ ersity of [place] [facility] Systolic blood 2020-05-17 16:06:00 125 mm[Hg] Univer sity of pressure [place] [facility] Diastolic blood 2020-05-17 16:06:00 76 mm[Hg] Unive rsity of pressure [place] [facility] Heart rate 2020-05-17 16:06:00 93 /min [facility] [place] [facility] Body temperature 2020-05-17 16:06:00 36.44 Mera Univ ersity of [place] [facility] Respiratory rate 2020-05-17 16:06:00 18 /min Univ ersity of [place] [facility] Body height 2020-05-17 16:06:00 160 cm [facility]i [facility] [place] [facility] Body weight 2020-05-17 16:06:00 105.688 kg [facility] [place] [facility] BMI 2020-05-17 16:06:00 41.27 kg/m2 [facility] [place] [facility] Systolic blood 2020-03-08 15:04:00 108 mm[Hg] Univer sity of pressure [place] [facility] Diastolic blood 2020-03-08 15:04:00 69 mm[Hg] Unive rsity of pressure [place] [facility] Heart rate 2020-03-08 15:04:00 74 /min [facility] [place] [facility] Body temperature 2020-03-08 15:04:00 36.61 Mera Univ ersity of [place] [facility] Respiratory rate 2020-03-08 15:04:00 20 /min Univ ersity of [place] [facility] Body height 2020-03-08 15:04:00 160 cm [facility] [place] [facility] Body weight 2020-03-08 15:04:00 112.583 kg [facility] [place] [facility] BMI 2020-03-08 15:04:00 43.97 kg/m2 [facility] [place] [facility] Systolic blood 2019-10-25 14:56:00 128 mm[Hg] Univer sity of pressure [place] [facility] Diastolic blood 2019-10-25 14:56:00 92 mm[Hg] Unive rsity of pressure [place] [facility] Heart rate 2019-10-25 14:56:00 72 /min [facility] [place] [facility] Body temperature 2019-10-25 14:56:00 36.67 Mera Univ ersity of [place] [facility] Body height 2019-10-25 14:56:00 160 cm [facility] [place] [facility] Body weight 2019-10-25 14:56:00 110.904 kg [facility] [place] [facility] BMI 2019-10-25 14:56:00 43.31 kg/m2 [facility] [place] [facility] Oxygen saturation in 2019-10-25 14:56:00 99 /min University of Arterial blood by [facility] nereida Pulse oximetry Branch Systolic blood 2019-10-24 17:13:00 120 mm[Hg] Univer sity of pressure [place] [facility] Diastolic blood 2019-10-24 17:13:00 81 mm[Hg] Unive rsity of pressure [place] [facility] Heart rate 2019-10-24 17:13:00 75 /min [facility] [place] [facility] Respiratory rate 2019-10-24 17:13:00 19 /min Univ ersity of [place] [facility] Body height 2019-10-24 17:13:00 160 cm [facility]i [facility] [place] [facility] Body weight 2019-10-24 17:13:00 110.133 kg [facility] [place] [facility] BMI 2019-10-24 17:13:00 43.01 kg/m2 [facility] [place] [facility] Oxygen saturation in 2019-10-24 17:13:00 99 /min University of Arterial blood by [facility] nereida Pulse oximetry Branch Systolic blood 2019-09-29 16:38:00 93 mm[Hg] Univer sity of pressure [place] [facility] Diastolic blood 2019-09-29 16:38:00 64 mm[Hg] Unive rsity of pressure [place] [facility] Heart rate 2019-09-29 16:38:00 77 /min [facility] [place] [facility] Body temperature 2019-09-29 16:38:00 36.5 Mera Univ ersity of [place] [facility] Respiratory rate 2019-09-29 16:38:00 20 /min [facility] 2019-09-29 16:38:00 160 cm [facility] [place] [facility] [place] Body weight 2019-09-29 16:38:00 109.77 kg Universi ty [facility] [place] BMI 2019-09-29 16:38:00 42.87 kg/m2 Universi ty [facility] Systolic blood 2019-04-28 14:39:00 105 mm[Hg] Univer sity of pressure [facility] Branch Diastolic blood 2019-04-28 14:39:00 62 mm[Hg] Unive rsity of pressure [facility] Heart rate 2019-04-28 14:39:00 87 /min Universi ty [facility] Body temperature 2019-04-28 14:39:00 36.94 Mera [facility] Res[facility] rate 2019-04-28 14:39:00 18 /min [facility] Body height 2019-04-28 14:39:00 160 cm Universi ty [facility] [place] Body weight 2019-04-28 14:39:00 123.832 kg Universi ty [facility] BMI 2019-04-28 14:39:00 48.36 kg/m2 Universi ty [facility] BP Systolic 2022-09-10 11:46:00 168 [...] Source Performed REFERRAL- 2020-09-27 06:01:00 Doctor Lucina, [facility] REQUEST/RESPONSE [facility] MR KNEE LEFT WO CONTRAST 2020-08-20 18:12:04 Alexandre Delgado [facility] [place] NOTICE OF PRIVACY 2020-08-02 06:01:00 Doctor Lucina, [facility] PRACTICES [facility] AGREEMENTS AUTHORIZATIONS 2020-08-02 06:01:00 Doctor Lucina, [facility] AND IRREVOCABLE [facility] ASSIGNMENTS (FORM 2001) VACCINATIONS - CONSENTS, 2020-05-17 05:01:00 Doctor Verdugo, [facility] ELIGIBILITY, HISTORY [place] XR KNEE 3 VW LEFT 2020-03-16 13:13:36 Alexandre Delgado [facility] [place] SCANNED LAB RESULTS 2020-03-08 05:01:00 Doctor [facility]dugo [facility] ASSIGNMENT OF BENEFITS 2020-02-10 13:57:41 [facility] - PRESCRIPTION / 2019-09-08 06:01:00 Doctor Marlin Verdugo [facility] ORDER [facility] AGREEMENTS AUTHORIZATIONS 2019-04-28 05:01:00 Doctor Lucina, [facility] AND IRREVOCABLE [facility] ASSIGNMENTS (FORM 2001) [id number] Ecg Routine Ecg 2018-06-14 00:00:00 W/least 12 Lds W/i r Plan of Care Planned Activity Planned Date Details Comments Source Goal Plan of Care Note [code = 38967-0] Goal Plan of Care Note [code = 24741-8] Goal Plan of Care Note [code = 32011-9] Goal Plan of Care Note [code = 99815-4] Goal Plan of Care Note [code = 10460-8] Goal Plan of Care Note [code = 57892-7] Goal Plan of Care Note [code = 87834-6] Goal Plan of Care Note [code = 96534-8] Goal Plan of Care Note [code = 10876-6] Goal Plan of Care Note [code = 45147-6] Goal Plan of Care Note [code = 30048-6] Goal Plan of Care Note [code = 64813-0] Goal Plan of Care Note [code = 85463-4] Goal Plan of Care Note [code = 41866-8] Goal Plan of Care Note [code = 70671-6] Goal Plan of Care Note [code = 12751-0] Goal Plan of Care Note [code = 57309-5] Goal Plan of Care Note [code = 57048-4] Goal Plan of Care Note [code = 18577-4] Goal Plan of Care Note [code = 94418-1] Goal Plan of Care Note [code = 22075-3] Goal Plan of Care Note [code = 22231-1] Goal Plan of Care Note [code = 68224-8] Goal Plan of Care Note [code = 82925-8] Goal Plan of Care Note [code = 88862-7] Goal Plan of Care Note [code = 89643-7] Goal Plan of Care Note [code = 92405-6] Goal Plan of Care Note [code = 29379-6] Goal Plan of Care Note [code = 09365-6] Goal Plan of Care Note [code = 17649-5] Goal Plan of Care Note [code = 67452-0] Goal Plan of Care Note [code = 06732-8] Goal Plan of Care Note [code = 54524-9] Goal Plan of Care Note [code = 19586-6] Goal Plan of Care Note [code = 78491-8] Goal Plan of Care Note [code = 53601-6] Goal Plan of Care Note [code = 42426-7] Goal Plan of Care Note [code = 80659-6] Goal Plan of Care Note [code = 85182-9] Goal Plan of Care Note [code = 75926-9] Goal Plan of Care Note [code = 11902-2] Goal Plan of Care Note [code = 90017-5] Goal Plan of Care Note [code = 46972-9] Goal Plan of Care Note [code = 11500-1] Goal Plan of Care Note [code = 95577-7] Goal Plan of Care Note [code = 95544-9] Goal Plan of Care Note [code = 59966-2] Goal Plan of Care Note [code = 95818-3] Goal Plan of Care Note [code = 08642-6] Goal Plan of Care Note [code = 55204-4] Goal Plan of Care Note [code = 03483-4] Goal Plan of Care Note [code = 64290-3] Goal Plan of Care Note [code = 14193-9] Goal Plan of Care Note [code = 38238-8] Goal Plan of Care Note [code = 55355-0] Goal Plan of Care Note [code = 62429-0] Goal Plan of Care Note [code = 55949-3] Goal Plan of Care Note [code = 65428-9] Goal Plan of Care Note [code = 88691-2] Goal Plan of Care Note [code = 14337-0] Goal Plan of Care Note [code = 36666-1] Goal Plan of Care Note [code = 18339-0] Goal Plan of Care Note [code = 78748-4] Goal Plan of Care Note [code = 42004-6] Goal Plan of Care Note [code = 20236-8] Goal Plan of Care Note [code = 08911-4] Goal Plan of Care Note [code = 92828-9] Goal Plan of Care Note [code = 46813-8] Goal Plan of Care Note [code = 48658-0] Goal Plan of Care Note [code = 68309-5] Goal Plan of Care Note [code = 02680-8] Goal Plan of Care Note [code = 54564-2] Goal Plan of Care Note [code = 10362-7] Goal Plan of Care Note [code = 37964-1] Goal Plan of Care Note [code = 36151-2] Goal Plan of Care Note [code = 80709-2] Goal Plan of Care Note [code = 57620-3] Goal Plan of Care Note [code = 99870-1] Goal Plan of Care Note [code = 78306-0] Goal Plan of Care Note [code = 64670-0] Goal Plan of Care Note [code = 61044-4] Goal Plan of Care Note [code = 73044-3] Goal Plan of Care Note [code = 17240-2] Goal Plan of Care Note [code = 92185-2] Goal Plan of Care Note [code = 36431-4] Goal Plan of Care Note [code = 07820-4] Goal Plan of Care Note [code = 19122-4] Goal Plan of Care Note [code = 04650-1] Goal Plan of Care Note [code = 14568-2] Goal Plan of Care Note [code = 48677-8] Goal Plan of Care Note [code = 99038-0] Goal Plan of Care Note [code = 77537-1] Goal Plan of Care Note [code = 91705-6] Goal Plan of Care Note [code = 79186-6] Goal Plan of Care Note [code = 19077-3] Goal Plan of Care Note [code = 52861-8] Goal Plan of Care Note [code = 62908-6] Goal Plan of Care Note [code = 83700-2] Goal Plan of Care Note [code = 22960-9] Goal Plan of Care Note [code = 34341-8] Goal Plan of Care Note [code = 37664-2] Goal Plan of Care Note [code = 48838-9] Goal Plan of Care Note [code = 48866-1] Goal Plan of Care Note [code = 70101-3] Goal Plan of Care Note [code = 29516-6] Goal Plan of Care Note [code = 68853-1] Goal Plan of Care Note [code = 50220-6] Goal Plan of Care Note [code = 39359-4] Goal Plan of Care Note [code = 26134-1] Encounters Start End Encounter Admission Attending Care Care Encounter Source Date/Time Date/Time Type Type Clinicians Facility Department ID 2023-04-28 2023-04-28 Outpatient JELENA VICK [id number] Jelena 09:00:00 09:00:00 DARLIN Seybo ld 2023-04-16 2023-04-16 Outpatient JELENA STOKES [id number] Jelena 10:30:00 10:30:00 SPENSER Seybol d 2023-03-23 2023-03-23 Outpatient GAURAV PURVIS JELENA BOWLES [id number] Jelena 10:30:00 10:30:00 Seybol d 2023-03-11 2023-03-11 Outpatient JELENA BRIONES [id number] Jelena 11:15:00 11:15:00 AHMED Seybol d 2023-02-05 2023-02-05 Outpatient LAB90 JELENA BOWLES [id number] Jelena 09:10:00 09:10:00 Seybol d 2023-02-05 2023-02-05 Outpatient JELENA MALHOTRA [id number] Jelena 00:00:00 00:00:00 BYRON Seybol d 2023-02-05 2023-02-05 Outpatient JELENA TREVIÑO [id number] Jelena 00:00:00 00:00:00 OLENA Seybol d 2023-02-02 2023-02-02 Outpatient JELENA STOKES [id number] Jelena 09:30:00 09:30:00 SPENSER Seybol d 2023-02-02 2023-02-02 Outpatient JELENA GARY [id number] Jelena 00:00:00 00:00:00 ROBYN Seybol d 2023-01-28 2023-01-28 Outpatient JELENA BRIONES [id number] Jelena 11:00:00 11:00:00 AHMED Seybol d 2023-01-18 2023-01-18 Outpatient JELENA GARY [id number] Jelena 00:00:00 00:00:00 ROBYN Seybol d 2023-01-17 2023-01-17 Outpatient JELENA MALHOTRA [id number] Jelena 00:00:00 00:00:00 BYRNO Seybol d 2023-01-14 2023-01-14 Outpatient JELENA GARY [id number] Jelena 00:00:00 00:00:00 ROBYN Seybol d 2023-01-07 2023-01-07 Outpatient HUNDL, JELENA BOWLES [id number] Jelena 00:00:00 00:00:00 ROBYN Seybol d 2023-01-06 2023-01-06 Outpatient KAWARGAURAV JELENA BOWLES [id number] Jelena 00:00:00 00:00:00 Seybol d 2023-01-06 2023-01-06 Outpatient HUNDL, JELENA BOWLES [id number] Jelena 00:00:00 00:00:00 ROBYN Seybol d 2023-01-06 2023-01-06 Outpatient MERRILL, JELENA BOWLES [id number] Jelena 00:00:00 00:00:00 JAROD Seybol d 2023-01-01 2023-01-01 Outpatient HUNDL, JELENA BOWLES [id number] Jelena 10:30:00 10:30:00 ROBYN Seybol d 2023-01-01 2023-01-01 Outpatient HUNDL, JELENA BOWLES [id number] Jelena 00:00:00 00:00:00 ROBYN Seybol d 2022-12-31 2022-12-31 Outpatient PLABPA JELENA BOWLES [id number] Jelena 09:00:00 09:00:00 Seybol d 2022-12-30 2022-12-30 Outpatient HUNDL, JELENA BOWLES [id number] Jelena 10:30:00 10:30:00 ROBYN Seybol d 2022-12-29 2022-12-29 Outpatient LAB90 JELENA BOWLES [id number] Jelena 11:20:00 11:20:00 Seybol d 2022-12-29 2022-12-29 Outpatient HUNDL, JELENA BOWLES [id number] Jelena 10:30:00 10:30:00 ROBYN Seybol d 2022-12-29 2022-12-29 Outpatient HUNDL, JELENA BOWLES [id number] Jelena 00:00:00 00:00:00 ROBYN Seybol d 2022-12-29 2022-12-29 Outpatient SEWIELAM, JELENA BOWLES [id number] Jelena 00:00:00 00:00:00 AHMED Seybol d 2022-12-26 2022-12-26 Outpatient PLABPA JELENA BOWLES [id number] Jelena 09:00:00 09:00:00 Seybol d 2022-12-26 2022-12-26 Outpatient JELENA BYNUM [id number] Jelena 00:00:00 00:00:00 JENNIFER Seybol d 2022-12-26 2022-12-26 Outpatient PREJELENA ALVA [id number] Jelena 00:00:00 00:00:00 BYRON Seybol d 2022-12-25 2022-12-25 Outpatient GAURAV PURVIS [id number] Jelena 00:00:00 00:00:00 Seybol d 2022-12-24 2022-12-24 Outpatient PLABPA JELENA BOWLES [id number] Jelena 11:30:00 11:30:00 Seybol d 2022-12-22 2022-12-22 Outpatient GAURAV PURVIS [id number] Jelena 09:00:00 09:00:00 Seybol d 2022-12-22 2022-12-22 Outpatient JELENA GARY [id number] Jelena 00:00:00 00:00:00 ROBYN Seybol d 2022-12-20 2022-12-20 Outpatient JELENA CRUZ [id number] Jelena 00:00:00 00:00:00 JALYN Seybol d 2022-12-19 2022-12-19 Outpatient JELENA MALHOTRA [id number] Jelena 00:00:00 00:00:00 BYRON Seybol d 2022-12-18 2022-12-18 Outpatient JELENA GARY [id number] Jelena 00:00:00 00:00:00 ROBYN Seybol d 2022-12-18 2022-12-18 Outpatient JELENA GARY [id number] Jelena 00:00:00 00:00:00 ROBYN Seybol d 2022-12-15 2022-12-15 Outpatient MYKELSEYONL JELENA BOWLES [id number] Jelena 00:00:00 00:00:00 MD ANKITA Seybol d 2022-12-15 2022-12-15 Outpatient JELENA MARTINEZ [id number] Jelena 00:00:00 00:00:00 MANOLO Seybol d 2022-12-15 2022-12-15 Outpatient PATRANULFO, JELENA BOWLES [id number] Jelena 00:00:00 00:00:00 GAUTAM Seybol d 2022-12-12 2022-12-12 Outpatient PATRANULFO, JELENA BOWLES [id number] Jelena 10:30:00 10:30:00 GAUTAM Seybol d 2022-12-12 2022-12-12 Outpatient JELENA BOWLES [id number] Jelena 00:00:00 00:00:00 Seybol d 2022-12-12 2022-12-12 Outpatient PREZAJELENA Umaña [id number] Jelena 00:00:00 00:00:00 BYRON Seybol d 2022-12-11 2022-12-11 Outpatient PREZAS, JELENA BOWLES [id number] Jelena 00:00:00 00:00:00 BYRON Seybol d 2022-12-08 2022-12-08 Outpatient JELENA MOMIN [id number] Jelena 10:40:00 10:40:00 JAROD Seybol d 2022-12-08 2022-12-08 Outpatient JELENA BOWLES [id number] Jelena 10:25:00 10:25:00 Seybol d 2022-12-08 2022-12-08 Outpatient GAURAV PURVIS [id number] Jelena 08:30:00 08:30:00 Seybol d 2022-12-08 2022-12-08 Outpatient HUNDLJELENA [id number] Jelena 00:00:00 00:00:00 ROBYN Seybol d 2022-12-04 2022-12-04 Outpatient PREZAJELENA Umaña [id number] Jelena 00:00:00 00:00:00 BYRON Seybol d 2022-12-04 2022-12-04 Outpatient MERRILLJELENA AN [id number] Jelena 00:00:00 00:00:00 JAROD Seybol d 2022-12-04 2022-12-04 Outpatient JELENA BOWLES [id number] Jelena 00:00:00 00:00:00 Seybol d 2022-12-04 2022-12-04 Outpatient COOKIE JELENA BOWLES [id number] Jelena 00:00:00 00:00:00 ROBYN Seybol d 2022-12-01 2022-12-01 Outpatient FARIDALJELENA [id number] Jelena 00:00:00 00:00:00 ROBYN Seybol d 2022-11-27 2022-11-[address] TECH JELENA BOWLES [id number] Jelena 10:30:00 10:30:00 Seybol d 2022-11-27 2022-11-27 Outpatient RUSSELL BOWLES [id number] Jelena 00:00:00 00:00:00 MD ANKITA Seybol d 2022-11-27 2022-11-27 Outpatient RUSSELL BOWLES [id number] Jelena 00:00:00 00:00:00 MD ANKITA Seybol d 2022-11-21 2022-11-21 Outpatient JELENA GARY [id number] Jelena 00:00:00 00:00:00 ROBYN Seybol d 2022-11-20 2022-11-20 Outpatient SFA SFA [id number] Jarod 10:08:21 10:08:21 0323 F Lee 2022-11-19 2022-11-19 Outpatient JELENA GARY [id number] Jelena 00:00:00 00:00:00 ROBYN Seybol d 2022-11-14 2022-11-14 Outpatient JELENA GARY [id number] Jelena 00:00:00 00:00:00 ROBYN Seybol d 2022-11-14 2022-11-14 Outpatient JELENA BOWLES [id number] Jelena 00:00:00 00:00:00 Seybol d 2022-11-11 2022-11-11 Outpatient JELENA GARY [id number] Jelena 00:00:00 00:00:00 ROBYN Seybol d 2022-11-07 2022-11-07 Outpatient NAVA, JELENA BOWLES [id number] Jelena 00:00:00 00:00:00 DARLIN Seybo ld 2022-11-07 2022-11-07 Outpatient NAVA, JELENA BOWLES [id number] Jelena 00:00:00 00:00:00 DARLIN Seybo ld 2022-11-07 2022-11-07 Outpatient NAVA, JELENA BOWLES [id number] Jelena 00:00:00 00:00:00 DARLIN Seybo ld 2022-11-07 2022-11-07 Outpatient NAVA JELENA BOWLES [id number] Jelena 00:00:00 00:00:00 DARLIN Seybo ld 2022-11-07 2022-11-07 Outpatient FARIDAL, JELENA BOWLES [id number] Jelena 00:00:00 00:00:00 ROBYN Seybol d 2022-11-07 2022-11-07 Outpatient HUNDL, JELENA BOWLES [id number] Jelena 00:00:00 00:00:00 ROBYN Seybol d 2022-11-07 2022-11-07 Outpatient HUNDL, JELENA BOWLES [id number] Jelena 00:00:00 00:00:00 ROBYN Seybol d 2022-11-07 2022-11-07 Outpatient HUNDL, JELENA BOWLES [id number] Jelena 00:00:00 00:00:00 ROBYN Seybol d 2022-11-07 2022-11-07 Outpatient HUNDL, JELENA BOWLES [id number] Jelena 00:00:00 00:00:00 ROBYN Seybol d 2022-11-07 2022-11-07 Outpatient HUNDL, JELENA BOWLES [id number] Jelena 00:00:00 00:00:00 ROBYN Seybol d 2022-10-30 2022-10-30 Outpatient SFA [id number] Jarod 08:26:44 08:26:44 0302 F Lee 2022-10-30 2022-10-30 Outpatient HUNDL, JELENA BOWLES [id number] Jelena 00:00:00 00:00:00 ROBYN Seybol d 2022-10-29 2022-10-29 Outpatient OCOKIE JELENA BOWLES [id number] Jelena 00:00:00 00:00:00 ROBYN Seybol d 2022-10-29 2022-10-29 Outpatient COOKIE JELENA JELENA [id number] Jelena 00:00:00 00:00:00 ROBYN Seybol d 2022-10-29 2022-10-29 Outpatient COOKIE JELENA BOWLES [id number] Jelena 00:00:00 00:00:00 ROBYN Seybol d 2022-10-29 2022-10-29 Outpatient NAVA JELENA BOWLES [id number] Jelena 00:00:00 00:00:00 DARLIN Seybo ld 2022-10-28 2022-10-28 Outpatient LAB47 JELENA BOWLES [id number] Jelena 09:45:00 09:45:00 Seybol d 2022-10-28 2022-10-28 Outpatient NAVA JELENA BOWLES [id number] Jelena 09:00:00 09:00:00 DARLIN Seybo ld 2022-10-23 2022-10-23 Outpatient COOKIE JELENA BOWLES [id number] Jelena 00:00:00 00:00:00 ROBYN Seybol d 2022-10-22 2022-10-22 Outpatient COOKIE JELENA BOWLES [id number] Jelena 08:00:00 08:00:00 ROBYN Seybol d 2022-10-13 2022-10-13 Outpatient SFA [id number] Jarod 11:24:16 11:24:16 0213 F Lee 2022-10-10 2022-10-10 Outpatient LAB90 JELENA BOWLES [id number] Jelena 09:25:00 09:25:00 Seybol d 2022-10-10 2022-10-10 Outpatient FARIDAJessica JELENA BOWLES [id number] Jelena 08:30:00 08:30:00 ROBYN Seybol d 2022-10-10 2022-10-10 Outpatient COOKIE JELENA BOWLES [id number] Jelena 00:00:00 00:00:00 ROBYN Seybol d 2022-10-09 2022-10-09 Outpatient JELENA GARY JELENA [id number] Jelena 08:30:00 08:30:00 ROBYN Seybol d 2022-10-09 2022-10-09 Outpatient HUNDLJELENA JELENA [id number] Jelena 00:00:00 00:00:00 ROBYN Seybol d 2022-09-30 2022-09-30 Outpatient JELENA GARY JELENA [id number] Jelena 00:00:00 00:00:00 ROBYN Seybol d 2022-09-26 2022-09-26 Outpatient HUNDLJELENA JELENA [id number] Jelena 00:00:00 00:00:00 ROBYN Seybol d 2022-09-24 2022-09-24 Outpatient LAB90 JELENA BOWLES [id number] Jelena 17:05:00 17:05:00 Seybol d 2022-09-24 2022-09-24 Outpatient FARIDAL JELENA BOWLES [id number] Jelena 11:00:00 11:00:00 ROBYN Seybol d 2022-09-22 2022-09-22 Outpatient SFA SFA [id number] Jarod 09:21:24 09:21:24 0123 F Lee 2022-09-22 2022-09-22 Outpatient JELENA GARY JELENA [id number] Jelena 00:00:00 00:00:00 ROBYN Seybol d 2022-09-17 2022-09-17 Outpatient COOKIE JELENA BOWLES [id number] Jelena 00:00:00 00:00:00 ROBYN Seybol d 2022-09-12 2022-09-12 Outpatient COOKIE JELENA BOWLES [id number] Jelena 00:00:00 00:00:00 ROBYN Seybol d 2022-09-11 2022-09-11 Outpatient COOKIE JELENA BOWLES [id number] Jelena 00:00:00 00:00:00 ROBYN Seybol d 2022-09-10 2022-09-10 Outpatient SFA SFA [id number] Jarod 11:36:44 11:36:44 0111 F Lee 2022-09-10 2022-09-10 Outpatient [id number] [id number] 00:00:00 00:00:00 Visit 87da-47c3 7da-47c3-b -nq05-0m5 w93-3p2i8w [id number] 2022-09-09 2022-09-09 Outpatient LAB90 JELENA JELENA [id number] Jelena 09:30:00 09:30:00 Seybol d 2022-09-09 2022-09-09 Outpatient COOKIE JELENA JELENA [id number] Jelena 08:30:00 08:30:00 ROBYN Guevaraybol tierra 2022-09-09 2022-09-09 Outpatient COOKIE JELENA JELENA [id number] Jelena 00:00:00 00:00:00 ROBYN Eatonol tierra 2022-09-04 2022-09-04 Outpatient SFA SFA [id number] Jarod 08:29:33 08:29:33 0105 F Lee 2022-09-04 2022-09-04 Outpatient [id number] [id number] [id number] 00:00:00 00:00:00 Visit 4bt7-0jp2 bd9-4ec7-b -bbc8-d95 bc8-d957ab [id number] 2022-08-28 2022-08-28 Outpatient SFA SFA [id number] Jarod 11:35:11 11:35:11 1229 F Ele 2022-08-28 2022-08-28 Outpatient [id number] 0d [id number] 00:00:00 00:00:00 Visit 010b-47c2 10b-47c2-b -b4x8-f62 4f6-m030q3 7c4040l4k 517b1b 2022-05-24 2022-05-24 [facility] [id number] 15:15:00 18:38:00 2381-551e 81-551e-843 36 -843c-ca8 c-xw2c0996u x6145u7yd 5eb 2022-03-15 2022-03-15 Outpatient [facility] 761 [place] 10:56:00 10:56:00 FLO 0716 [facility] 2020-11-29 2020-11-29 Outpatient Gracia GRAFF [facility] [id number] Univers 15:30:00 15:30:[address] arshad o f [facility] 2020-10-23 2020-10-23 Telephone Alexandre Delgado 1.2.840.114 [id number] Univers 00:00:00 00:00:00 [facility] 350.1.13.10 [place] [id number] [facility] [address] [place] 2020-10-23 2020-10-23 Telephone Alexandre Delgado 1.2.840.114 [id number] 00:00:00 00:00:00 [facility] 350.1.13.10 HEALTH 4.2.7.2.686 UNIT [id number] 362 2020-10-12 2020-10-12 Outpatient R TASH [facility] [id number] Univers 09:00:00 09:00:[address] [facility] 2020-09-27 2020-09-27 Orders Doctor CONNER 1.2.840.114 [id number] Univers 00:00:00 00:00:00 Only Unassigned, LESLEY 350.1.13.10 ity of [place] [facility] 4.2.7.2.686 Marvel as [phone] [facility] [address] 2020-09-27 2020-09-27 Orders Doctor CONNER 1.2.840.114 [id number] 00:00:00 00:00:00 Only Unassigned, [place] 350.1.13.10 [place] [facility] 4.2.7.2.686 [id number] 009 2020-09-20 2020-09-20 Telephone Tash [facility] 1.2.840.114 [id number] Univers 00:00:00 00:00:00 Shey [facility] 350.1.13.10 it y of Surgical 4.2.7.2.686 Marvel as Specialti [id number] [address] 2020-09-20 2020-09-20 [facility] 1.2.840.114 [id number] 00:00:00 00:00:00 Shey [facility] 350.1.13.10 Surgical 4.2.7.2.686 Specialti [id number] es [address] [place] 2020-09-07 2020-09-07 [facility] 1.2.295.151 [id number] Univers 09:03:53 09:52:26 Visit Shey Lopez [facility] 350.1.13.10 it y of Surgical 4.2.7.2.686 Marvel as Specialti [phone] Me dical es 198 [facility] 2020-09-07 2020-09-07 [facility] 1.2.996.717 [id number] 09:03:53 09:52:26 Visit Shey Cabral 350.1.13.10 Surgical 4.2.7.2.686 Specialti [id number] es [address] [place] 2020-09-07 2020-09-07 [facility] [id number] Univers 09:00:00 09:00:00 [facility] 2020-08-30 2020-08-30 [facility] [id number] Univers 08:30:00 08:30:00 [facility] 2020-08-20 2020-08-20 [facility] 1.2.840.114 [id number] Univers 10:11:58 23:59:00 Encounter Health 350.1.13.10 [place] [phone] [place] [id number] Branch ([facility]) 2020-08-20 2020-08-20 Outpatient R ALEXANDRE DELGADO [facility] [id number] Univers 10:11:58 23:59:00 ity [facility] 2020-08-16 2020-08-16 Jo [facility] 1.2.840.114 [id number] Univers 00:00:00 00:00:00 [facility] 350.1.13.10 it y of [place] 4.2.7.2.686 Marvel as [place] [phone] [address] Office Building One 2020-08-02 2020-08-02 Office Care, Ang Primary [place] 1.2.840 .114 [id number] Univers 10:40:31 12:20:58 Visit Alexandre Delgado [facility] 350.1.13.10 it[place] [id number] [address] 2020-08-02 2020-08-02 Outpatient Gracia SANDY [facility] [id number] Univers 10:30:00 10:30:00 ity [facility] 2020-08-02 2020-08-02 Orders Doctor CONNER 1.2.840.114 [id number] Univers 00:00:00 00:00:00 Only Unassigned, LESLEY 350.1.13.10 ity of [place] [facility] 4.2.7.2.686 Marvel as [phone] [address] 2020-05-31 2020-05-31 Outpatient Gracia LAMAR [facility] [id number] Univers 08:50:00 08:50:00 ILIANA itemmy [facility] 2020-05-24 2020-05-24 Outpatient Gracia DELGADO [facility] [id number] Univers 00:00:00 00:00:00 ity [facility] 2020-05-22 2020-05-22 Outpatient Gracia LAMAR [facility] [id number] Univers 09:50:00 09:50:00 ILIANA ity [facility] 2020-05-17 2020-05-21 Office Care, Ang Primary [place] 1.2.840 .114 [id number] Univers 11:05:31 09:49:52 Visit Alexandre Delgado [facility] 350.1.13.10 [place] [id number] [address] 2020-05-21 2020-05-21 Outpatient Gracia DELGADO [facility] [id number] Univers 00:00:00 00:00:00 ity [facility] 2020-05-17 2020-05-17 Outpatient Gracia DELGADO [facility] [id number] Univers 10:30:00 10:30:[address] [facility] 2020-05-17 2020-05-17 Orders Doctor CONNER 1.2.840.114 [id number] Univers 00:00:00 00:00:00 Only Unassigned, LESLEY 350.1.13.10 ity of [place] [facility] 4.2.7.2.686 Marvel as [phone] [facility] [address] 2020-05-08 2020-05-08 Outpatient Gr[facility] [id number] Univers 08:30:00 08:30:[address] [facility] 2020-05-08 2020-05-08 [facility] 1.2.840.114 [id number] Univers 07:05:41 07:35:41 ne Visit Annemarie AVILES 350.1.13.10 ity of [facility] 4.2.7.2.686 [facility] s [place] AT [phone] [place] lawrencenargis LIZBETHEmmy 2 [facility] 2020-05-01 2020-05-01 Outpatient Gr[facility] [id number] Univers 09:30:00 09:30:[address] [facility] 2020-04-24 2020-04-24 Outpatient Gracia [facility] [id number] Univers 09:30:00 09:30:[address] [facility] 2020-03-08 2020-03-20 Office Care, Ang Primary [place] 1.2.840 .114 [id number] Univers 10:02:59 09:15:53 Visit Alexandre Delgado [facility] 350.1.13.10 it[place] [id number] [facility] [address] 2020-03-16 2020-03-16 [facility] 1.2.840.114 [id number] Univers 07:51:00 23:59:00 Encounter Hubert 350.1.13.10 [place] [phone] [facility] [address] 2020-03-16 2020-03-16 Outpatient R SANDY [facility] [id number] Univers 00:00:00 00:00:[address] [facility] 2020-03-13 2020-03-13 Telephone Alexandre DelgadoKAYLAH 1.2.840.114 [id number] Univers 00:00:00 00:00:00 [facility] 350.1.13.10 [place] [id number] [address] 2020-03-08 2020-03-08 Outpatient R SANDY ALEXANDRE [facility] [id number] Univers 10:00:00 10:00:[address] [facility] 2020-03-08 2020-03-08 Orders Doctor CONNER 1.2.840.114 [id number] Univers 00:00:00 00:00:00 Only Unassigned, LESLEY 350.1.13.10 ity of [place] [facility] 4.2.7.2.686 Marvel as [id number] [address] 2020-02-29 2020-02-29 Telephone Alexandre Delgado ROSY 1.2.840.114 [id number] Univers 00:00:00 00:00:00 [facility] 350.1.13.10 [place] [id number] [address] 2020-02-14 2020-02-14 Telephone Fer [facility] 1.2.039.916 [id number] Univers 00:00:00 00:00:00 Dannie Cerdaton 350.1.13.10 [place] [id number] [place] 059 [facility] 2020-02-10 2020-02-10 Outpatient R [facility] [id number] Univers 09:00:00 09:00:[address] [facility] 2020-02-10 2020-02-10 Orders Doctor CONNER 1.2.840.114 [id number] Univers 00:00:00 00:00:00 Only Unassigned, LESLEY 350.1.13.10 ity of [place] [facility] 4.2.7.2.686 Marvel as [id number] [address] 2020-01-24 2020-01-24 [facility] [id number] Univers 10:40:00 10:40:[address] ity o f [facility] 2020-01-24 2020-01-24 [facility] 1.2.840.114 [id number] Univers 07:57:10 08:17:10 ne Visit Dannie Gaspar 350.1.13.10 [place] [phone] [place] [address] [place] [address] 2020-01-18 2020-01-18 Outpatient R [facility] [id number] Univers 13:00:00 13:00:[address] [facility] 2019-11-10 2019-11-10 Telephone Sandy Alexandre ROSY 1.2.840.114 [id number] Univers 00:00:00 00:00:00 [facility] 350.1.13.10 [place] [id number] [address] 2019-11-03 2019-11-03 Outpatient R ALEXANDRE DELGADO [facility] [id number] Univers 08:15:00 08:15:[address] [facility] 2019-10-25 2019-10-25 [facility] 1.2.840.114 [id number] Univers 08:48:06 09:27:18 Visit Annemarie VAILES 350.1.13.10 [place] [phone] [place] dical LIZBETHY 072 [facility] 2019-10-25 2019-10-25 [facility] [id number] Univers 09:00:00 09:00:[address] ity o [address] [facility] 2019-10-24 2019-10-24 [facility] 1.2.840.114 [id number] Univers 10:57:17 15:44:20 Visit Dannie Gaspar 350.1.13.10 [place] [phone] [place] [address] [place] [address] 2019-10-24 2019-10-24 [facility] [id number] Univers 11:00:00 11:00:00 PRETTYNGJUN ity o f [facility] 2019-09-29 2019-09-29 Office Care, Ang Primary [place] 1.2.840 .114 [id number] Univers 10:38:08 11:16:42 Visit Alexandre Delgado [facility] 350.1.13.10 [place] [id number] [address] 2019-09-29 2019-09-29 Outpatient R ALEXANDRE DELGADO [facility] [id number] Univers 10:00:00 11:16:[address] [facility] 2019-09-14 2019-09-14 Telephone Alexandre Delgado ROSY 1.2.840.114 [id number] Univers 00:00:00 00:00:00 [facility] 350.1.13.10 [place] [id number] [address] 2019-09-08 2019-09-08 Orders Doctor CONNER 1.2.840.114 [id number] Univers 00:00:00 00:00:00 Only Unassigned, [place] 350.1.13.10 ity of [place] [facility] 4.2.7.2.686 Marvel as [phone] [address] 2019-05-05 2019-05-05 Telephone Alexandre Delgado ROSY 1.2.840.114 [id number] Univers 00:00:00 00:00:00 [facility] 350.1.13.10 it [id number] [address] 2019-04-28 2019-04-28 Office Care, Ang Primary [place] 1.2.840 .114 [id number] Univers 09:26:40 11:38:19 Visit Alexandre Delgado [facility] 350.1.13.10 it[place] [id number] [address] 2019-04-28 2019-04-28 Orders Doctor CONNER 1.2.840.114 [id number] Univers 00:00:00 00:00:00 Only Unassigned, [place] 350.1.13.10 [facility] [place] [facility] 4.2.7.2.686 [place] as [phone] [facility] 009 Branch Results Test Description Test Time Test Comments Results Result Comments Source TSH, THIRD GENERATION 2022-09-11 04:08:38 Test Item Value Reference Range Interpretation Comme nts TSH, THIRD GENERATION (test 2.060 UIU/ML 0.400-4.100 UNLESS OTHERWISE INDICATED, code = 2821) ALL TESTING PER FORMED ATCLINICAL PATH [facility]LOGY [facility], [facility]. [address] [place] [address] 7117 CONTRACT ACCOUNTANT: Tracey COBBPOOJA NOLAND Gracia [id number] [place] [id number] COMPREHENSIVE METABOLIC [id number] 03:23:31 Test Item Value Reference Range Interpretation Comments GLUCOSE (test code = 80 MG/DL 70-99 2216) BUN (test code = 7 MG/DL 6-20 2207) CREATININE (test 0.55 MG/DL 0.60-1.30 L code = 2214) eGFR (2020 CKD-EPI) 127 >60 (test code = 09346) ML/MIN/1.73 CALC BUN/CREAT (test 13 RATIO 6-28 code = 2235) SODIUM (test code = 138 MEQ/L 717-648 1860) POTASSIUM (test code 3.9 MEQ/L 3.5-5.4 = [...] U/L 5-40 2218) CBC W/AUTO DIFF WITH [id number] 02:00:05 Test Item Value Reference Range Interpretation [...] RBCS 0.00 K/UL 0.00-0.11 (test code = 01932) CT/NG, NAAT, [id number] 20:52:50 Test Item Value Reference Range Interpretation Comments GONORRHEA, NAAT NEGATIVE NEGATIVE Note: Testi ng is (test code = 36154) performe d with Emili EDEL 6800/8800 systems using real-time polymerase cali n reaction (PCR) method. CHLAMYDIA, NAAT NEGATIVE NEGATIVE Note: Testi ng is (test code = 26019) performe d with Emili EDEL 6800/8800 systems using real-time polymerase cali n reaction (PCR) method. HEPATITIS PANEL, [id number] 05:02:20 Test Item Value Reference Range Interpretation Comments HEPATITIS A IgM (test NON-REACTIVE NON-REACTIVE code = 80295) HEPATITIS B CORE IgM NON-REACTIVE NON-REACTIVE (test code = 4644) HEPATITIS B SURF AG NON-REACTIVE NON-REACTIVE (test code = 2739) HEPATITIS C ANTIBODY NON-REACTIVE NON-REACTIVE (test code = 4675) INTERPRETATION (NOTE) Hepatitis A HEPATITIS A: (test code sero logy shows no = 2552) evidence of acu te hepatitis A. INTERPRETATION (NOTE) Hepatitis B HEPATITIS B: (test code sero [place]y shows no = 89749) evidence of acu te hepatitis B and no indication of exposure to hepatitis B vir us in the previous alejandra eight months. INTERPRETATION (NOTE) Hepatitis C HEPATITIS C: (test code sero logy shows no = 22332) evidence of exposure to hepatitisC viru s at this time. I t can take up to 12 months after exposure tothe hepatitis C vir us for antibodies to become detectab le in the blood in certain patient s. HIV 1/2 4TH GEN, RFLX [id number] 05:02:20 Test Item Value Reference Range Interpretation Comments HIV 1/2 4TH GEN, NON-REACTIVE NON-REACTIVE UNLESS OTH ERWISE RFLX CONF (test INDICATED, A LL TESTING code = 3514) PERFORMED [facility] [address] [place] [address] [place] JESSICA DIRECTOR: Tracey COBBIA NUMBER [id number] CAP ACCREDITATION N O. [id number] RPR REFLEX TO T. PALLIDUM - [id number] 04:28:08 Test Item Value Reference Range Interpretation Comments RPR (test code = 33042) NON-REACTIVE NON-REACTIVE RPR TITER (test code = 3500) NOT INDIC. TITER NOT INDIC. CT/NG, TMA, [id number] 00:00:00 Test Item Value Reference Range Interpretation Comments GONORRHEA, NAAT (test code = 92745) NEGATIVE CHLAMYDIA, NAAT (test code = 04110) NEGATIVE CT/NG, TMA, [id number] 00:00:00 Test Item Value Reference Range Interpretation Comments GONORRHEA, NAAT (test code = 87218) NEGATIVE CHLAMYDIA, NAAT (test code = 46260) NEGATIVE RPR REFLEX TO T. PALLIDUM - [id number] 00:00:00 Test Item Value Reference Range Interpretation Comments RPR (test code = 26629) NON-REACTIVE RPR TITER (test code = 3500) NOT INDIC. TITER RPR REFLEX TO T. PALLIDUM - [id number] 00:00:00 Test Item Value Reference Range Interpretation Comments RPR (test code = 02359) NON-REACTIVE RPR TITER (test code = 3500) NOT INDIC. TITER ACUTE HEPATITIS [id number] 00:00:00 Test Item Value Reference Range Interpretation Comments HEPATITIS A IgM (test code = NON-REACTIVE 31840) HEPATITIS B CORE IgM (test code NON-REACTIVE = 4644) HEPATITIS B SURF AG (test code = NON-REACTIVE 2739) HEPATITIS C ANTIBODY (test code NON-REACTIVE = 4675) INTERPRETATION HEPATITIS A: (NOTE) (test code = 2552) INTERPRETATION HEPATITIS B: (NOTE) (test code = 30058) INTERPRETATION HEPATITIS C: (NOTE) (test code = 21196) ACUTE HEPATITIS [id number] 00:00:00 Test Item Value Reference Range Interpretation Comments HEPATITIS A IgM (test code = NON-REACTIVE 64390) HEPATITIS B CORE IgM (test code NON-REACTIVE = 4644) HEPATITIS B SURF AG (test code = NON-REACTIVE 2739) HEPATITIS C ANTIBODY (test code NON-REACTIVE = 4675) INTERPRETATION HEPATITIS A: (NOTE) (test code = 2552) INTERPRETATION HEPATITIS B: (NOTE) (test code = 37233) INTERPRETATION HEPATITIS C: (NOTE) (test code = 84509) HIV 1/2 4TH GEN, RFLX [id number] 00:00:00 Test Item Value Reference Range Interpretation Comments HIV 1/2 4TH GEN, RFLX CONF (test NON-REACTIVE code = 3514) HIV 1/2 4TH GEN, RFLX [id number] 00:00:00 Test Item Value Reference Range Interpretation Comments HIV 1/2 4TH GEN, RFLX CONF (test NON-REACTIVE code = 3514) VITAMIN D, 25 [id number] 03:25:23 Test Item Value Reference Range Interpretation [...] ATED, ALL TESTING PERFORM ED ATCLINICAL PATH [facility], [facility]. [address] [address] LABORATORY DIRE CTOR: Rebeca COBB. CLPOOJA NUMBER [id number] CAP ACCREDITATION N O. [id number] HIV 1/2 4TH GEN, RFLX [id number] 03:00:39 Test Item Value Reference Range Interpretation Comments HIV 1/2 4TH GEN, RFLX CONF (test NON-REACTIVE NON-REACTIVE code = 3514) HIV AB/AG COMBO RFLX [id number] 00:00:00 Test Item Value Reference Range Interpretation Comments HIV 1/2 4TH GEN, RFLX CONF (test NON-REACTIVE code = 3514) HIV AB/AG COMBO RFLX [id number] 00:00:00 Test Item Value Reference Range Interpretation Comments HIV 1/2 4TH GEN, RFLX CONF (test NON-REACTIVE code = 3514) VITAMIN D, 25 [id number] 00:00:00 Test Item Value Reference Range Interpretation Comments VITAMIN D, 25 OH (test code = 4958) 27 NG/ML VITAMIN D, 25 [id number] 00:00:00 Test Item Value Reference Range Interpretation Comments VITAMIN D, 25 OH (test code = 4958) 27 NG/ML HIV AB/AG COMBO RFLX [id number] 00:00:00 Test Item Value Reference Range Interpretation Comments HIV 1/2 4TH GEN, RFLX CONF (test NON-REACTIVE code = 3514) HIV AB/AG COMBO RFLX [id number] 00:00:00 Test Item Value Reference Range Interpretation Comments HIV 1/2 4TH GEN, RFLX CONF (test NON-REACTIVE code = 3514) VITAMIN D, 25 [id number] 00:00:00 Test Item Value Reference Range Interpretation Comments VITAMIN D, 25 OH (test code = 4958) 27 NG/ML VITAMIN D, 25 [id number] 00:00:00 Test Item Value Reference Range Interpretation Comments VITAMIN D, 25 OH (test code = 4958) 27 NG/ML HIV AB/AG COMBO RFLX [id number] 00:00:00 Test Item Value Reference Range Interpretation Comments HIV 1/2 4TH GEN, RFLX CONF (test NON-REACTIVE code = 3514) HIV AB/AG COMBO RFLX [id number] 00:00:00 Test Item Value Reference Range Interpretation Comments HIV 1/2 4TH GEN, RFLX CONF (test NON-REACTIVE code = 3514) VITAMIN D, 25 [id number] 00:00:00 Test Item Value Reference Range Interpretation Comments VITAMIN D, 25 OH (test code = 4958) 27 NG/ML VITAMIN D, 25 [id number] 00:00:00 Test Item Value Reference Range Interpretation Comments VITAMIN D, 25 OH (test code = 4958) 27 NG/ML TSH, THIRD [id number] 00:19:50 Test Item Value Reference Range Interpretation Comments TSH, THIRD GENERATION (test code 1.090 UIU/ML 0.400-4.100 = 2821) [id number] 00:00:00 Test Item Value Reference Range Interpretation Comments TSH, THIRD GENERATION (test code 1.090 UIU/ML = 2821) [id number] 00:00:00 Test Item Value Reference Range Interpretation Comments TSH, THIRD GENERATION (test code 1.090 UIU/ML = 2821) [id number] 00:00:00 Test Item Value Reference Range Interpretation Comments TSH, THIRD GENERATION (test code 1.090 UIU/ML = 2821) [id number] 00:00:00 Test Item Value Reference Range Interpretation Comments TSH, THIRD GENERATION (test code 1.090 UIU/ML = 2821) [id number] 00:00:00 Test Item Value Reference Range Interpretation Comments TSH, THIRD GENERATION (test code 1.090 UIU/ML = 2821) [id number] 00:00:00 Test Item Value Reference Range Interpretation Comments TSH, THIRD GENERATION (test code 1.090 UIU/ML = 2821) [id number] 00:00:00 Test Item Value Reference Range Interpretation Comments TSH, THIRD GENERATION (test code 1.090 UIU/ML = 2821) [id number] 00:00:00 Test Item Value Reference Range Interpretation Comments TSH, THIRD GENERATION (test code 1.090 UIU/ML = 2821) [id number] 00:00:00 Test Item Value Reference Range Interpretation Comments TSH, THIRD GENERATION (test code 1.090 UIU/ML = 2821) LIPID [id number] 23:59:41 Test Item Value Reference Range Interpretation [...] MOREINFORMATION , SEE CLIENT ANNOUNCE MENT AT [email or web address] RISK RATIO LDL/HDL 1.79 RATIO <3.22 (test code = 2238) COMPREHENSIVE METABOLIC [id number] 23:59:41 Test Item Value Reference Range Interpretation Comments GLUCOSE (test code = 77 MG/DL 70-99 2216) BUN (test code = 8 MG/DL 6-20 2207) CREATININE (test 0.67 MG/DL 0.60-1.30 EFFECTIVE code = 2214) 08/12/2021, [facility] HAS IMPLEMENTED THE NKF-ASN RECOMME NDED KD-EPI EGF R REFIT CALCULATI ON THAT DOES NOT INCLUDE A COEFFICIENT FOR RACE. FOR MORE INFORMATION, SE E ANNOUNCEMENT [email or web address] eGFR (2020 CKD-EPI) 122 >60 (test code = 62456) ML/MIN/1.73 CALC BUN/CREAT (test 12 RATIO 6-28 code = 2235) SODIUM (test code = 141 MEQ/L 987-025 8122) POTASSIUM (test code 4.0 MEQ/L 3.5-5.4 = 2227) CHLORIDE (test code 102 MEQ/L 95-107 = 221) CARBON DIOXIDE (test 22 MEQ/L 19-31 code [...] = 92 U/L 5-40 H 2219) HEMOGLOBIN [id number] 03:14:31 Test Item Value Reference Range Interpretation Comments HEMOGLOBIN A1c (test code = 06675) 6.0 % 4.2-5.6 H CBC W/AUTO DIFF WITH [id number] 03:06:02 Test Item Value Reference Range Interpretation [...] RBCS 0.00 K/UL 0.00-0.11 (test code = 83625) CBC W/AUTO [id number] 00:00:00 Test Item Value Reference Range Interpretation [...] NUCLEATED RBCS (test code = 0.00 K/UL 06886) CBC W/AUTO [id number] 00:00:00 Test Item Value Reference Range Interpretation [...] NUCLEATED RBCS (test code = 0.00 K/UL 54380) CBC W/AUTO [id number] 00:00:00 Test Item Value Reference Range Interpretation [...] NUCLEATED RBCS (test code = 0.00 K/UL 53092) HEMOGLOBIN [id number] 00:00:00 Test Item Value Reference Range Interpretation Comments HEMOGLOBIN A1c (test code = 10973) 6.0 % HEMOGLOBIN [id number] 00:00:00 Test Item Value Reference Range Interpretation Comments HEMOGLOBIN A1c (test code = 47351) 6.0 % HEMOGLOBIN [id number] 00:00:00 Test Item Value Reference Range Interpretation Comments HEMOGLOBIN A1c (test code = 51633) 6.0 % LIPID [id number] 00:00:00 Test Item Value Reference Range Interpretation Comments CHOLESTEROL (test code = 2210) 124 MG/DL TRIGLYCERIDES (test code = 2232) 69 MG/DL HDL CHOLESTEROL (test code = 2220) 39 MG/DL CALC LDL CHOL (test code = 2237) 70 MG/DL RISK RATIO LDL/HDL (test code = 1.79 RATIO 2238) LIPID [id number] 00:00:00 Test Item Value Reference Range Interpretation Comments CHOLESTEROL (test code = 2210) 124 MG/DL TRIGLYCERIDES (test code = 2232) 69 MG/DL HDL CHOLESTEROL (test code = 2220) 39 MG/DL CALC LDL CHOL (test code = 2237) 70 MG/DL RISK RATIO LDL/HDL (test code = 1.79 RATIO 2238) COMPREHENSIVE METABOLIC [id number] 00:00:00 Test Item Value Reference Range Interpretation Comments GLUCOSE (test code = 2217) 77 MG/DL BUN (test code = 2208) 8 MG/DL CREATININE (test code = 2214) 0.67 MG/DL eGFR (2020 CKD-EPI) (test 122 ML/MIN/1.73 code = 05227) CALC BUN/CREAT (test code = 12 RATIO [...] code = 2219) 92 U/L COMPREHENSIVE METABOLIC [id number] 00:00:00 Test Item Value Reference Range Interpretation Comments GLUCOSE (test code = 2217) 77 MG/DL BUN (test code = 2208) 8 MG/DL CREATININE (test code = 2214) 0.67 MG/DL eGFR (2020 CKD-EPI) (test 122 ML/MIN/1.73 code = 51038) CALC BUN/CREAT (test code = 12 RATIO [...] code = 2219) 92 U/L CBC W/AUTO [id number] 00:00:00 Test Item Value Reference Range Interpretation [...] NUCLEATED RBCS (test code = 0.00 K/UL 45919) CBC W/AUTO [id number] 00:00:00 Test Item Value Reference Range Interpretation [...] NUCLEATED RBCS (test code = 0.00 K/UL 66508) CBC W/AUTO [id number] 00:00:00 Test Item Value Reference Range Interpretation [...] NUCLEATED RBCS (test code = 0.00 K/UL 46608) CBC W/AUTO [id number] 00:00:00 Test Item Value Reference Range Interpretation [...] NUCLEATED RBCS (test code = 0.00 K/UL 69254) HEMOGLOBIN [id number] 00:00:00 Test Item Value Reference Range Interpretation Comments HEMOGLOBIN A1c (test code = 00559) 6.0 % HEMOGLOBIN [id number] 00:00:00 Test Item Value Reference Range Interpretation Comments HEMOGLOBIN A1c (test code = 29918) 6.0 % HEMOGLOBIN [id number] 00:00:00 Test Item Value Reference Range Interpretation Comments HEMOGLOBIN A1c (test code = 83053) 6.0 % LIPID [id number] 00:00:00 Test Item Value Reference Range Interpretation Comments CHOLESTEROL (test code = 2210) 124 MG/DL TRIGLYCERIDES (test code = 2232) 69 MG/DL HDL CHOLESTEROL (test code = 2220) 39 MG/DL CALC LDL CHOL (test code = 2237) 70 MG/DL RISK RATIO LDL/HDL (test code = 1.79 RATIO 2238) LIPID [id number] 00:00:00 Test Item Value Reference Range Interpretation Comments CHOLESTEROL (test code = 2210) 124 MG/DL TRIGLYCERIDES (test code = 2232) 69 MG/DL HDL CHOLESTEROL (test code = 2220) 39 MG/DL CALC LDL CHOL (test code = 2237) 70 MG/DL RISK RATIO LDL/HDL (test code = 1.79 RATIO 2238) COMPREHENSIVE METABOLIC [id number] 00:00:00 Test Item Value Reference Range Interpretation Comments GLUCOSE (test code = 2217) 77 MG/DL BUN (test code = 2208) 8 MG/DL CREATININE (test code = 2214) 0.67 MG/DL eGFR (2020 CKD-EPI) (test 122 ML/MIN/1.73 code = 32559) CALC BUN/CREAT (test code = 12 RATIO [...] A/G RATIO (test code = 1.2 RATIO 223) BILIRUBIN, TOTAL (test code = 0.3 MG/DL 2206) ALKALINE PHOSPHATASE (test 56 U/L code = 2204) AST (test code = 2218) 63 U/L ALT (test code = 2219) 92 U/L COMPREHENSIVE METABOLIC [id number] 00:00:00 Test Item Value Reference Range Interpretation Comments GLUCOSE (test code = 2217) 77 MG/DL BUN (test code = 2208) 8 MG/DL CREATININE (test code = 2214) 0.67 MG/DL eGFR (2020 CKD-EPI) (test 122 ML/MIN/1.73 code = 93200) CALC BUN/CREAT (test code = 12 RATIO [...] code = 2219) 92 U/L CBC W/AUTO [id number] 00:00:00 Test Item Value Reference Range Interpretation [...] NUCLEATED RBCS (test code = 0.00 K/UL 55208) CBC W/AUTO [id number] 00:00:00 Test Item Value Reference Range Interpretation [...] NUCLEATED RBCS (test code = 0.00 K/UL 13745) HEMOGLOBIN [id number] 00:00:00 Test Item Value Reference Range Interpretation Comments HEMOGLOBIN A1c (test code = 83307) 6.0 % HEMOGLOBIN [id number] 00:00:00 Test Item Value Reference Range Interpretation Comments HEMOGLOBIN A1c (test code = 31192) 6.0 % HEMOGLOBIN [id number] 00:00:00 Test Item Value Reference Range Interpretation Comments HEMOGLOBIN A1c (test code = 40059) 6.0 % LIPID [id number] 00:00:00 Test Item Value Reference Range Interpretation Comments CHOLESTEROL (test code = 2210) 124 MG/DL TRIGLYCERIDES (test code = 2232) 69 MG/DL HDL CHOLESTEROL (test code = 2220) 39 MG/DL CALC LDL CHOL (test code = 2237) 70 MG/DL RISK RATIO LDL/HDL (test code = 1.79 RATIO 2238) LIPID [id number] 00:00:00 Test Item Value Reference Range Interpretation Comments CHOLESTEROL (test code = 2210) 124 MG/DL TRIGLYCERIDES (test code = 2232) 69 MG/DL HDL CHOLESTEROL (test code = 2220) 39 MG/DL CALC LDL CHOL (test code = 2237) 70 MG/DL RISK RATIO LDL/HDL (test code = 1.79 RATIO 2238) COMPREHENSIVE METABOLIC [id number] 00:00:00 Test Item Value Reference Range Interpretation Comments GLUCOSE (test code = 2217) 77 MG/DL BUN (test code = 2208) 8 MG/DL CREATININE (test code = 2214) 0.67 MG/DL eGFR (2020 CKD-EPI) (test 122 ML/MIN/1.73 code = 96798) CALC BUN/CREAT (test code = 12 RATIO [...] code = 2219) 92 U/L COMPREHENSIVE METABOLIC [id number] 00:00:00 Test Item Value Reference Range Interpretation Comments GLUCOSE (test code = 2217) 77 MG/DL BUN (test code = 2208) 8 MG/DL CREATININE (test code = 2214) 0.67 MG/DL eGFR (2020 CKD-EPI) (test 122 ML/MIN/1.73 code = 65771) CALC BUN/CREAT (test code = 12 RATIO 2235) SODIUM (test code = 2231) 141 MEQ/L POTASSIUM (test code = 2228) 4.0 MEQ/L CHLORIDE (test code = 2215) 102 MEQ/L CARBON DIOXIDE (test code = 22 MEQ/L 220) CALCIUM (test code = 2209) 9.3 MG/DL PROTEIN, TOTAL (test code = 7.6 G/DL 222) ALBUMIN (test code = 2201) 4.2 G/DL CALC GLOBULIN (test code = 3.4 G/DL 2240) CALC A/G RATIO (test code = 1.2 RATIO 2234) BILIRUBIN, TOTAL (test code = 0.3 MG/DL 2207) ALKALINE PHOSPHATASE (test 56 U/L code = 2204) AST (test code = 2218) 63 U/L ALT (test code = 2219) 92 U/L MR KNEE LEFT WO [id number] 21:23:01 Stable MRI with lateral patellar subluxation [...] reviewed this study and agree with the abovereport.[facility] 2020-03-16 13:46:56 Large effusion. No fracture. EXAM: XR KNEE 3 VW LEFT HISTORY: new onset of instablity left knee with 2 falls in last 4 wks COMPARISON: None FINDINGS: Imaging of the left knee demonstrates a moderate si zed effusion. Alignmentis maintained. There is mild depression of the medial tibial plateau on thePAview. No fracture is appreciated. Mdmb, Radiant Results Inft User - 03/16/2020 8:48 AM CDTEXAM:XR KNEE 3 VW LEFTHISTORY:new onset of instablity left knee with 2 falls in last 4 wks COMPARISON:NoneFINDINGS: Imaging of the left knee demonstrates a moderate sized effusion. Alignmentis maintained. There is mild depression of the medial tibial plateau on thePA view. No fracture is appreciated.IMPRESSIONLarge effusion.No fracture.[facility] CenterHCG, [id number] 00:00:00 Test Item Value Reference Range Interpretation Comments HCG, QUANTITATIVE (test code = <5 MIU/ML 2506) HCG, [id number] 00:00:00 Test Item Value Reference Range Interpretation Comments HCG, QUANTITATIVE (test code = <5 MIU/ML 2506) HCG, [id number] 00:00:00 Test Item Value Reference Range Interpretation Comments HCG, QUANTITATIVE (test code = <5 MIU/ML 2506) HCG, [id number] 00:00:00 Test Item Value Reference Range Interpretation Comments HCG, QUANTITATIVE (test code = <5 MIU/ML 2506) HCG, [id number] 00:00:00 Test Item Value Reference Range Interpretation Comments HCG, QUANTITATIVE (test code = <5 MIU/ML 2506) HCG, [id number] 00:00:00 Test Item Value Reference Range Interpretation Comments HCG, QUANTITATIVE (test code = <5 MIU/ML 2506) HCG, [id number] 00:00:00 Test Item Value Reference Range Interpretation Comments HCG, QUANTITATIVE (test code = <5 MIU/ML 2506) HCG, [id number] 00:00:00 Test Item Value Reference Range Interpretation Comments HCG, QUANTITATIVE (test code = <5 MIU/ML 2506) HCG, [id number] 00:00:00 Test Item Value Reference Range Interpretation Comments HCG, QUANTITATIVE (test code = <5 MIU/ML 2506) HCG, [id number] 00:00:00 Test Item Value Reference Range Interpretation Comments HCG, QUANTITATIVE (test TEST NOT PERFORMED code = 2506) MIU/ML HCG, [id number] 00:00:00 Test Item Value Reference Range Interpretation Comments HCG, QUANTITATIVE (test TEST NOT PERFORMED code = 2506) MIU/ML HCG, [id number] 00:00:00 Test Item Value Reference Range Interpretation Comments HCG, QUANTITATIVE (test TEST NOT PERFORMED code = 2506) MIU/ML HCG, [id number] 00:00:00 Test Item Value Reference Range Interpretation Comments HCG, QUANTITATIVE (test TEST NOT PERFORMED code = 2506) MIU/ML HCG, [id number] 00:00:00 Test Item Value Reference Range Interpretation Comments HCG, QUANTITATIVE (test TEST NOT PERFORMED code = 2506) MIU/ML HCG, [id number] 00:00:00 Test Item Value Reference Range Interpretation Comments HCG, QUANTITATIVE (test TEST NOT PERFORMED code = 2506) MIU/ML HCG, [id number] 00:00:00 Test Item Value Reference Range Interpretation Comments HCG, QUANTITATIVE (test TEST NOT PERFORMED code = 2506) MIU/ML HCG, [id number] 00:00:00 Test Item Value Reference Range Interpretation Comments HCG, QUANTITATIVE (test TEST NOT PERFORMED code = 2506) MIU/ML HCG, [id number] 00:00:00 Test Item Value Reference Range Interpretation Comments HCG, QUANTITATIVE (test TEST NOT PERFORMED code = 2506) MIU/ML CHLAMYDIA, AMPLIFIED, [id number] 00:00:00 Test Item Value Reference Range Interpretation Comments CHLAMYDIA, TMA (test code = 47272) NEGATIVE CHLAMYDIA, AMPLIFIED, [id number] 00:00:00 Test Item Value Reference Range Interpretation Comments CHLAMYDIA, TMA (test code = 39545) NEGATIVE GC, AMPLIFIED, [id number] 00:00:00 Test Item Value Reference Range Interpretation Comments GONORRHEA, TMA (test code = 87509) NEGATIVE GC, AMPLIFIED, [id number] 00:00:00 Test Item Value Reference Range Interpretation Comments GONORRHEA, TMA (test code = 84305) NEGATIVE CHLAMYDIA, AMPLIFIED, [id number] 00:00:00 Test Item Value Reference Range Interpretation Comments CHLAMYDIA, TMA (test code = 48033) NEGATIVE CHLAMYDIA, AMPLIFIED, [id number] 00:00:00 Test Item Value Reference Range Interpretation Comments CHLAMYDIA, TMA (test code = 17196) NEGATIVE GC, AMPLIFIED, [id number] 00:00:00 Test Item Value Reference Range Interpretation Comments GONORRHEA, TMA (test code = 14111) NEGATIVE GC, AMPLIFIED, [id number] 00:00:00 Test Item Value Reference Range Interpretation Comments GONORRHEA, TMA (test code = 25042) NEGATIVE CHLAMYDIA, AMPLIFIED, [id number] 00:00:00 Test Item Value Reference Range Interpretation Comments CHLAMYDIA, TMA (test code = 05757) NEGATIVE CHLAMYDIA, AMPLIFIED, [id number] 00:00:00 Test Item Value Reference Range Interpretation Comments CHLAMYDIA, TMA (test code = 80634) NEGATIVE GC, AMPLIFIED, [id number] 00:00:00 Test Item Value Reference Range Interpretation Comments GONORRHEA, TMA (test code = 41171) NEGATIVE GC, AMPLIFIED, [id number] 00:00:00 Test Item Value Reference Range Interpretation Comments GONORRHEA, TMA (test code = 12481) NEGATIVE HIV AB/AG COMBO RFLX [id number] 00:00:00 Test Item Value Reference Range Interpretation Comments HIV 1/2 4TH GEN, RFLX CONF (test NON-REACTIVE code = 3514) HIV AB/AG COMBO RFLX [id number] 00:00:00 Test Item Value Reference Range Interpretation Comments HIV 1/2 4TH GEN, RFLX CONF (test NON-REACTIVE code = 3514) ACUTE HEPATITIS [id number] 00:00:00 Test Item Value Reference Range Interpretation Comments HEPATITIS A IgM (test code = NON-REACTIVE 17180) HEPATITIS B CORE IgM (test code NON-REACTIVE = 4644) HEPATITIS B SURF AG (test code = NON-REACTIVE 2739) HEPATITIS C ANTIBODY (test code NON-REACTIVE = 4675) INTERPRETATION HEPATITIS A: (NOTE) (test code = 2552) INTERPRETATION HEPATITIS B: (NOTE) (test code = 33057) INTERPRETATION HEPATITIS C: (NOTE) (test code = 24371) ACUTE HEPATITIS [id number] 00:00:00 Test Item Value Reference Range Interpretation Comments HEPATITIS A IgM (test code = NON-REACTIVE 52515) HEPATITIS B CORE IgM (test code NON-REACTIVE = 4644) HEPATITIS B SURF AG (test code = NON-REACTIVE 2739) HEPATITIS C ANTIBODY (test code NON-REACTIVE = 4675) INTERPRETATION HEPATITIS A: (NOTE) (test code = 2552) INTERPRETATION HEPATITIS B: (NOTE) (test code = 44905) INTERPRETATION HEPATITIS C: (NOTE) (test code = 74432) [id number] 00:00:00 Test Item Value Reference Range Interpretation Comments RPR RESULT (test code = NON-REACTIVE 3501) RPR TITER (test code = 3500) NOT INDIC. TITER [id number] 00:00:00 Test Item Value Reference Range Interpretation Comments RPR RESULT (test code = NON-REACTIVE 3501) RPR TITER (test code = 3500) NOT INDIC. TITER [id number] 00:00:00 Test Item Value Reference Range Interpretation Comments RPR RESULT (test code = NON-REACTIVE 3501) RPR TITER (test code = 3500) NOT INDIC. TITER HIV AB/AG COMBO RFLX [id number] 00:00:00 Test Item Value Reference Range Interpretation Comments HIV 1/2 4TH GEN, RFLX CONF (test NON-REACTIVE code = 3514) HIV AB/AG COMBO RFLX [id number] 00:00:00 Test Item Value Reference Range Interpretation Comments HIV 1/2 4TH GEN, RFLX CONF (test NON-REACTIVE code = 3514) HIV AB/AG COMBO RFLX [id number] 00:00:00 Test Item Value Reference Range Interpretation Comments HIV 1/2 4TH GEN, RFLX CONF (test NON-REACTIVE code = 3514) ACUTE HEPATITIS [id number] 00:00:00 Test Item Value Reference Range Interpretation Comments HEPATITIS A IgM (test code = NON-REACTIVE 18766) HEPATITIS B CORE IgM (test code NON-REACTIVE = 4644) HEPATITIS B SURF AG (test code = NON-REACTIVE 2739) HEPATITIS C ANTIBODY (test code NON-REACTIVE = 4675) INTERPRETATION HEPATITIS A: (NOTE) (test code = 2552) INTERPRETATION HEPATITIS B: (NOTE) (test code = 58031) INTERPRETATION HEPATITIS C: (NOTE) (test code = 64252) ACUTE HEPATITIS [id number] 00:00:00 Test Item Value Reference Range Interpretation Comments HEPATITIS A IgM (test code = NON-REACTIVE 19639) HEPATITIS B CORE IgM (test code NON-REACTIVE = 4644) HEPATITIS B SURF AG (test code = NON-REACTIVE 2739) HEPATITIS C ANTIBODY (test code NON-REACTIVE = 4675) INTERPRETATION HEPATITIS A: (NOTE) (test code = 2552) INTERPRETATION HEPATITIS B: (NOTE) (test code = 36400) INTERPRETATION HEPATITIS C: (NOTE) (test code = 71828) [id number] 00:00:00 Test Item Value Reference Range Interpretation Comments RPR RESULT (test code = NON-REACTIVE 3501) RPR TITER (test code = 3500) NOT INDIC. TITER [id number] 00:00:00 Test Item Value Reference Range Interpretation Comments RPR RESULT (test code = NON-REACTIVE 3501) RPR TITER (test code = 3500) NOT INDIC. TITER [id number] 00:00:00 Test Item Value Reference Range Interpretation Comments RPR RESULT (test code = NON-REACTIVE 3501) RPR TITER (test code = 3500) NOT INDIC. TITER HIV AB/AG COMBO RFLX [id number] 00:00:00 Test Item Value Reference Range Interpretation Comments HIV 1/2 4TH GEN, RFLX CONF (test NON-REACTIVE code = 3514) ACUTE HEPATITIS [id number] 00:00:00 Test Item Value Reference Range Interpretation Comments HEPATITIS A IgM (test code = NON-REACTIVE 47504) HEPATITIS B CORE IgM (test code NON-REACTIVE = 4644) HEPATITIS B SURF AG (test code = NON-REACTIVE 2739) HEPATITIS C ANTIBODY (test code NON-REACTIVE = 4675) INTERPRETATION HEPATITIS A: (NOTE) (test code = 2552) INTERPRETATION HEPATITIS B: (NOTE) (test code = 10134) INTERPRETATION HEPATITIS C: (NOTE) (test code = 66192) ACUTE HEPATITIS [id number] 00:00:00 Test Item Value Reference Range Interpretation Comments HEPATITIS A IgM (test code = NON-REACTIVE 53146) HEPATITIS B CORE IgM (test code NON-REACTIVE = 4644) HEPATITIS B SURF AG (test code = NON-REACTIVE 2739) HEPATITIS C ANTIBODY (test code NON-REACTIVE = 4675) INTERPRETATION HEPATITIS A: (NOTE) (test code = 2552) INTERPRETATION HEPATITIS B: (NOTE) (test code = 59292) INTERPRETATION HEPATITIS C: (NOTE) (test code = 90051) [id number] 00:00:00 Test Item Value Reference Range Interpretation Comments RPR RESULT (test code = NON-REACTIVE 3501) RPR TITER (test code = 3500) NOT INDIC. TITER [id number] 00:00:00 Test Item Value Reference Range Interpretation Comments RPR RESULT (test code = NON-REACTIVE 3501) RPR TITER (test code = 3500) NOT INDIC. TITER [id number] 00:00:00 Test Item Value Reference Range Interpretation Comments RPR RESULT (test code = NON-REACTIVE 3501) RPR TITER (test code = 3500) NOT INDIC. TITER HIV AB/AG COMBO RFLX [id number] 00:00:00 Test Item Value Reference Range Interpretation Comments HIV 1/2 4TH GEN, RFLX CONF (test NON-REACTIVE code = 3514) HIV AB/AG COMBO RFLX [id number] 00:00:00 Test Item Value Reference Range Interpretation Comments HIV 1/2 4TH GEN, RFLX CONF (test NON-REACTIVE code = 3514) ACUTE HEPATITIS [id number] 00:00:00 Test Item Value Reference Range Interpretation Comments HEPATITIS A IgM (test code = NON-REACTIVE 16364) HEPATITIS B CORE IgM (test code NON-REACTIVE = 4644) HEPATITIS B SURF AG (test code = NON-REACTIVE 2739) HEPATITIS C ANTIBODY (test code NON-REACTIVE = 4675) HCV INDEX (test code = 28278) 0.13 INTERPRETATION HEPATITIS A: (NOTE) (test code = 2552) INTERPRETATION HEPATITIS B: (NOTE) (test code = 08135) INTERPRETATION HEPATITIS C: (NOTE) (test code = 27851) ACUTE HEPATITIS [id number] 00:00:00 Test Item Value Reference Range Interpretation Comments HEPATITIS A IgM (test code = NON-REACTIVE 98288) HEPATITIS B CORE IgM (test code NON-REACTIVE = 4644) HEPATITIS B SURF AG (test code = NON-REACTIVE 2739) HEPATITIS C ANTIBODY (test code NON-REACTIVE = 4675) HCV INDEX (test code = 75065) 0.13 INTERPRETATION HEPATITIS A: (NOTE) (test code = 2552) INTERPRETATION HEPATITIS B: (NOTE) (test code = 56471) INTERPRETATION HEPATITIS C: (NOTE) (test code = 21220) GC AND CHLAMYDIA, AMPLIFIED, [id number] 00:00:00 Test Item Value Reference Range Interpretation Comments GONORRHEA, TMA (test code = 41190) NEGATIVE CHLAMYDIA, TMA (test code = 43404) NEGATIVE GC AND CHLAMYDIA, AMPLIFIED, [id number] 00:00:00 Test Item Value Reference Range Interpretation Comments GONORRHEA, TMA (test code = 24719) NEGATIVE CHLAMYDIA, TMA (test code = 71896) NEGATIVE [id number] 00:00:00 Test Item Value Reference Range Interpretation Comments RPR RESULT (test code = NON-REACTIVE 3501) RPR TITER (test code = 3500) NOT INDIC. TITER [id number] 00:00:00 Test Item Value Reference Range Interpretation Comments RPR RESULT (test code = NON-REACTIVE 3501) RPR TITER (test code = 3500) NOT INDIC. TITER [id number] 00:00:00 Test Item Value Reference Range Interpretation Comments RPR RESULT (test code = NON-REACTIVE 3501) RPR TITER (test code = 3500) NOT INDIC. TITER HIV AB/AG COMBO RFLX [id number] 00:00:00 Test Item Value Reference Range Interpretation Comments HIV 1/2 4TH GEN, RFLX CONF (test NON-REACTIVE code = 3514) HIV AB/AG COMBO RFLX [id number] 00:00:00 Test Item Value Reference Range Interpretation Comments HIV 1/2 4TH GEN, RFLX CONF (test NON-REACTIVE code = 3514) HIV AB/AG COMBO RFLX [id number] 00:00:00 Test Item Value Reference Range Interpretation Comments HIV 1/2 4TH GEN, RFLX CONF (test NON-REACTIVE code = 3514) ACUTE HEPATITIS [id number] 00:00:00 Test Item Value Reference Range Interpretation Comments HEPATITIS A IgM (test code = NON-REACTIVE 14767) HEPATITIS B CORE IgM (test code NON-REACTIVE = 4644) HEPATITIS B SURF AG (test code = NON-REACTIVE 2739) HEPATITIS C ANTIBODY (test code NON-REACTIVE = 4675) HCV INDEX (test code = 96125) 0.13 INTERPRETATION HEPATITIS A: (NOTE) (test code = 2552) INTERPRETATION HEPATITIS B: (NOTE) (test code = 05472) INTERPRETATION HEPATITIS C: (NOTE) (test code = 01588) ACUTE HEPATITIS [id number] 00:00:00 Test Item Value Reference Range Interpretation Comments HEPATITIS A IgM (test code = NON-REACTIVE 30051) HEPATITIS B CORE IgM (test code NON-REACTIVE = 4644) HEPATITIS B SURF AG (test code = NON-REACTIVE 2739) HEPATITIS C ANTIBODY (test code NON-REACTIVE = 4675) HCV INDEX (test code = 91990) 0.13 INTERPRETATION HEPATITIS A: (NOTE) (test code = 2552) INTERPRETATION HEPATITIS B: (NOTE) (test code = 13218) INTERPRETATION HEPATITIS C: (NOTE) (test code = 96921) HIV AB/AG COMBO RFLX [id number] 00:00:00 Test Item Value Reference Range Interpretation Comments HIV 1/2 4TH GEN, RFLX CONF (test NON-REACTIVE code = 3514) GC AND CHLAMYDIA, AMPLIFIED, [id number] 00:00:00 Test Item Value Reference Range Interpretation Comments GONORRHEA, TMA (test code = 41407) NEGATIVE CHLAMYDIA, TMA (test code = 49150) NEGATIVE GC AND CHLAMYDIA, AMPLIFIED, [id number] 00:00:00 Test Item Value Reference Range Interpretation Comments GONORRHEA, TMA (test code = 40044) NEGATIVE CHLAMYDIA, TMA (test code = 81405) NEGATIVE [id number] 00:00:00 Test Item Value Reference Range Interpretation Comments RPR RESULT (test code = NON-REACTIVE 3501) RPR TITER (test code = 3500) NOT INDIC. TITER [id number] 00:00:00 Test Item Value Reference Range Interpretation Comments RPR RESULT (test code = NON-REACTIVE 3501) RPR TITER (test code = 3500) NOT INDIC. TITER [id number] 00:00:00 Test Item Value Reference Range Interpretation Comments RPR RESULT (test code = NON-REACTIVE 3501) RPR TITER (test code = 3500) NOT INDIC. TITER ACUTE HEPATITIS [id number] 00:00:00 Test Item Value Reference Range Interpretation Comments HEPATITIS A IgM (test code = NON-REACTIVE 03939) HEPATITIS B CORE IgM (test code NON-REACTIVE = 4644) HEPATITIS B SURF AG (test code = NON-REACTIVE 2739) HEPATITIS C ANTIBODY (test code NON-REACTIVE = 4675) HCV INDEX (test code = 91656) 0.13 INTERPRETATION HEPATITIS A: (NOTE) (test code = 2552) INTERPRETATION HEPATITIS B: (NOTE) (test code = 65718) INTERPRETATION HEPATITIS C: (NOTE) (test code = 43021) ACUTE HEPATITIS [id number] 00:00:00 Test Item Value Reference Range Interpretation Comments HEPATITIS A IgM (test code = NON-REACTIVE 69682) HEPATITIS B CORE IgM (test code NON-REACTIVE = 4644) HEPATITIS B SURF AG (test code = NON-REACTIVE 2739) HEPATITIS C ANTIBODY (test code NON-REACTIVE = 4675) HCV INDEX (test code = 39082) 0.13 INTERPRETATION HEPATITIS A: (NOTE) (test code = 2552) INTERPRETATION HEPATITIS B: (NOTE) (test code = 52538) INTERPRETATION HEPATITIS C: (NOTE) (test code = 67913) GC AND CHLAMYDIA, AMPLIFIED, [id number] 00:00:00 Test Item Value Reference Range Interpretation Comments GONORRHEA, TMA (test code = 15351) NEGATIVE CHLAMYDIA, TMA (test code = 81062) NEGATIVE GC AND CHLAMYDIA, AMPLIFIED, [id number] 00:00:00 Test Item Value Reference Range Interpretation Comments GONORRHEA, TMA (test code = 80696) NEGATIVE CHLAMYDIA, TMA (test code = 99049) NEGATIVE [id number] 00:00:00 Test Item Value Reference Range Interpretation Comments RPR RESULT (test code = NON-REACTIVE 3501) RPR TITER (test code = 3500) NOT INDIC. TITER [id number] 00:00:00 Test Item Value Reference Range Interpretation Comments RPR RESULT (test code = NON-REACTIVE 3501) RPR TITER (test code = 3500) NOT INDIC. TITER [id number] 00:00:00 Test Item Value Reference Range Interpretation Comments RPR RESULT (test code = NON-REACTIVE 3501) RPR TITER (test code = 3500) NOT INDIC. TITER [id number] 00:00:00 Test Item Value Reference Range Interpretation Comments RPR RESULT (test code = NON-REACTIVE 3501) RPR TITER (test code = 3500) NOT INDIC. TITER [id number] 00:00:00 Test Item Value Reference Range Interpretation Comments RPR RESULT (test code = NON-REACTIVE 3501) RPR TITER (test code = 3500) NOT INDIC. TITER [id number] 00:00:00 Test Item Value Reference Range Interpretation Comments RPR RESULT (test code = NON-REACTIVE 3501) RPR TITER (test code = 3500) NOT INDIC. TITER HIV AB/AG COMBO RFLX [id number] 00:00:00 Test Item Value Reference Range Interpretation Comments HIV 1/2 4TH GEN, RFLX CONF (test NON-REACTIVE code = 3514) HIV AB/AG COMBO RFLX [id number] 00:00:00 Test Item Value Reference Range Interpretation Comments HIV 1/2 4TH GEN, RFLX CONF (test NON-REACTIVE code = 3514) [id number] 00:00:00 Test Item Value Reference Range Interpretation Comments RPR RESULT (test code = NON-REACTIVE 3501) RPR TITER (test code = 3500) NOT INDIC. TITER [id number] 00:00:00 Test Item Value Reference Range Interpretation Comments RPR RESULT (test code = NON-REACTIVE 3501) RPR TITER (test code = 3500) NOT INDIC. TITER [id number] 00:00:00 Test Item Value Reference Range Interpretation Comments RPR RESULT (test code = NON-REACTIVE 3501) RPR TITER (test code = 3500) NOT INDIC. TITER [id number] 00:00:00 Test Item Value Reference Range Interpretation Comments RPR RESULT (test code = NON-REACTIVE 3501) RPR TITER (test code = 3500) NOT INDIC. TITER HIV AB/AG COMBO RFLX [id number] 00:00:00 Test Item Value Reference Range Interpretation Comments HIV 1/2 4TH GEN, RFLX CONF (test NON-REACTIVE code = 3514) HIV AB/AG COMBO RFLX [id number] 00:00:00 Test Item Value Reference Range Interpretation Comments HIV 1/2 4TH GEN, RFLX CONF (test NON-REACTIVE code = 3514) [id number] 00:00:00 Test Item Value Reference Range Interpretation Comments RPR RESULT (test code = NON-REACTIVE 3501) RPR TITER (test code = 3500) NOT INDIC. TITER [id number] 00:00:00 Test Item Value Reference Range Interpretation Comments RPR RESULT (test code = NON-REACTIVE 3501) RPR TITER (test code = 3500) NOT INDIC. TITER HIV AB/AG COMBO RFLX [id number] 00:00:00 Test Item Value Reference Range Interpretation Comments HIV 1/2 4TH GEN, RFLX CONF (test NON-REACTIVE code = 3514) HIV AB/AG COMBO RFLX [id number] 00:00:00 Test Item Value Reference Range Interpretation Comments HIV 1/2 4TH GEN, RFLX CONF (test NON-REACTIVE code = 3514) GC AND CHLAMYDIA, AMPLIFIED, [id number] 00:00:00 Test Item Value Reference Range Interpretation Comments GONORRHEA, TMA (test code = 88755) NEGATIVE CHLAMYDIA, TMA (test code = 61270) NEGATIVE GC AND CHLAMYDIA, AMPLIFIED, [id number] 00:00:00 Test Item Value Reference Range Interpretation Comments GONORRHEA, TMA (test code = 25852) NEGATIVE CHLAMYDIA, TMA (test code = 77554) NEGATIVE GC AND CHLAMYDIA, AMPLIFIED, [id number] 00:00:00 Test Item Value Reference Range Interpretation Comments GONORRHEA, TMA (test code = 85420) NEGATIVE CHLAMYDIA, TMA (test code = 82494) NEGATIVE GC AND CHLAMYDIA, AMPLIFIED, [id number] 00:00:00 Test Item Value Reference Range Interpretation Comments GONORRHEA, TMA (test code = 77160) NEGATIVE CHLAMYDIA, TMA (test code = 50927) NEGATIVE GC AND CHLAMYDIA, AMPLIFIED, [id number] 00:00:00 Test Item Value Reference Range Interpretation Comments GONORRHEA, TMA (test code = 71182) NEGATIVE CHLAMYDIA, TMA (test code = 32347) NEGATIVE GC AND CHLAMYDIA, AMPLIFIED, [id number] 00:00:00 Test Item Value Reference Range Interpretation Comments GONORRHEA, TMA (test code = 53721) NEGATIVE CHLAMYDIA, TMA (test code = 74107) NEGATIVE COMPREHENSIVE METABOLIC [id number] 00:00:00 Test Item Value Reference Range Interpretation Comments GLUCOSE (test code = 2217) 127 MG/DL BUN (test code = 2208) 5 MG/DL CREATININE (test code = 2214) 0.58 MG/DL eGFR AMER. (test code 148 ML/MIN/1.73 = 87395) eGFR NON- AMER. (test 128 ML/MIN/1.73 code = 63480) CALC BUN/CREAT (test code = 9 RATIO [...] code = 2219) 18 U/L COMPREHENSIVE METABOLIC [id number] 00:00:00 Test Item Value Reference Range Interpretation Comments GLUCOSE (test code = 221) 127 MG/DL BUN (test code = 2208) 5 MG/DL CREATININE (test code = 2214) 0.58 MG/DL eGFR AMER. (test code 148 ML/MIN/1.73 = 15951) eGFR NON- AMER. (test 128 ML/MIN/1.73 code = 81058) CALC BUN/CREAT (test code = 9 RATIO [...] (test code = 2219) 18 U/L LIPID [id number] 00:00:00 Test Item Value Reference Range Interpretation Comments CHOLESTEROL (test code = 2210) 186 MG/DL TRIGLYCERIDES (test code = 2232) 106 MG/DL HDL CHOLESTEROL (test code = 2220) 54 MG/DL CALC LDL CHOL (test code = 2237) 111 MG/DL RISK RATIO LDL/HDL (test code = 2.05 RATIO 2238) LIPID [id number] 00:00:00 Test Item Value Reference Range Interpretation Comments CHOLESTEROL (test code = 2210) 186 MG/DL TRIGLYCERIDES (test code = 2232) 106 MG/DL HDL CHOLESTEROL (test code = 2220) 54 MG/DL CALC LDL CHOL (test code = 2237) 111 MG/DL RISK RATIO LDL/HDL (test code = 2.05 RATIO 2238) COMPREHENSIVE METABOLIC [id number] 00:00:00 Test Item Value Reference Range Interpretation Comments GLUCOSE (test code = 2217) 127 MG/DL BUN (test code = 2208) 5 MG/DL CREATININE (test code = 2214) 0.58 MG/DL eGFR AMER. (test code 148 ML/MIN/1.73 = 53728) eGFR NON- AMER. (test 128 ML/MIN/1.73 code = 13669) CALC BUN/CREAT (test code = 9 RATIO [...] code = 2219) 18 U/L COMPREHENSIVE METABOLIC [id number] 00:00:00 Test Item Value Reference Range Interpretation Comments GLUCOSE (test code = 2217) 127 MG/DL BUN (test code = 2208) 5 MG/DL CREATININE (test code = 2214) 0.58 MG/DL eGFR AMER. (test code 148 ML/MIN/1.73 = 86744) eGFR NON- AMER. (test 128 ML/MIN/1.73 code = 17071) CALC BUN/CREAT (test code = 9 RATIO [...] code = 2219) 18 U/L COMPREHENSIVE METABOLIC [id number] 00:00:00 Test Item Value Reference Range Interpretation Comments GLUCOSE (test code = 2217) 127 MG/DL BUN (test code = 2208) 5 MG/DL CREATININE (test code = 2214) 0.58 MG/DL eGFR AMER. (test code 148 ML/MIN/1.73 = 83740) eGFR NON- AMER. (test 128 ML/MIN/1.73 code = 76866) CALC BUN/CREAT (test code = 9 RATIO [...] (test code = 2219) 18 U/L LIPID [id number] 00:00:00 Test Item Value Reference Range Interpretation Comments CHOLESTEROL (test code = 2210) 186 MG/DL TRIGLYCERIDES (test code = 2232) 106 MG/DL HDL CHOLESTEROL (test code = 2220) 54 MG/DL CALC LDL CHOL (test code = 2237) 111 MG/DL RISK RATIO LDL/HDL (test code = 2.05 RATIO 2238) LIPID [id number] 00:00:00 Test Item Value Reference Range Interpretation Comments CHOLESTEROL (test code = 2210) 186 MG/DL TRIGLYCERIDES (test code = 2232) 106 MG/DL HDL CHOLESTEROL (test code = 2220) 54 MG/DL CALC LDL CHOL (test code = 2237) 111 MG/DL RISK RATIO LDL/HDL (test code = 2.05 RATIO 2238) COMPREHENSIVE METABOLIC [id number] 00:00:00 Test Item Value Reference Range Interpretation Comments GLUCOSE (test code = 2217) 127 MG/DL BUN (test code = 2208) 5 MG/DL CREATININE (test code = 2214) 0.58 MG/DL eGFR AMER. (test code 148 ML/MIN/1.73 = 15540) eGFR NON- AMER. (test 128 ML/MIN/1.73 code = 76371) CALC BUN/CREAT (test code = 9 RATIO [...] (test code = 2219) 18 U/L LIPID [id number] 00:00:00 Test Item Value Reference Range Interpretation Comments CHOLESTEROL (test code = 2210) 186 MG/DL TRIGLYCERIDES (test code = 2232) 106 MG/DL HDL CHOLESTEROL (test code = 2220) 54 MG/DL CALC LDL CHOL (test code = 2237) 111 MG/DL RISK RATIO LDL/HDL (test code = 2.05 RATIO 2238) LIPID [id number] 00:00:00 Test Item Value Reference Range Interpretation Comments CHOLESTEROL (test code = 2210) 186 MG/DL TRIGLYCERIDES (test code = 2232) 106 MG/DL HDL CHOLESTEROL (test code = 2220) 54 MG/DL CALC LDL CHOL (test code = 2237) 111 MG/DL RISK RATIO LDL/HDL (test code = 2.05 RATIO 2238) GC AND CHLAMYDIA, AMPLIFIED, [id number] 00:00:00 Test Item Value Reference Range Interpretation Comments GONORRHEA, TMA (test code = 96254) NEGATIVE CHLAMYDIA, TMA (test code = 15252) NEGATIVE GC AND CHLAMYDIA, AMPLIFIED, [id number] 00:00:00 Test Item Value Reference Range Interpretation Comments GONORRHEA, TMA (test code = 52195) NEGATIVE CHLAMYDIA, TMA (test code = 85913) NEGATIVE GC AND CHLAMYDIA, AMPLIFIED, [id number] 00:00:00 Test Item Value Reference Range Interpretation Comments GONORRHEA, TMA (test code = 21550) NEGATIVE CHLAMYDIA, TMA (test code = 01150) NEGATIVE GC AND CHLAMYDIA, AMPLIFIED, [id number] 00:00:00 Test Item Value Reference Range Interpretation Comments GONORRHEA, TMA (test code = 29332) NEGATIVE CHLAMYDIA, TMA (test code = 52487) NEGATIVE GC AND CHLAMYDIA, AMPLIFIED, [id number] 00:00:00 Test Item Value Reference Range Interpretation Comments GONORRHEA, TMA (test code = 20846) NEGATIVE CHLAMYDIA, TMA (test code = 57177) NEGATIVE GC AND CHLAMYDIA, AMPLIFIED, [id number] 00:00:00 Test Item Value Reference Range Interpretation Comments GONORRHEA, TMA (test code = 78941) NEGATIVE CHLAMYDIA, TMA (test code = 51903) NEGATIVE VAGINAL PATHOGENS DNA [id number] 00:00:00 Test Item Value Reference Range Interpretation Comments YOKO SPECIES (test code = 66831) POSITIVE G. VAGINALIS (test code = ) NEGATIVE T. VAGINALIS (test code = 61169) NEGATIVE VAGINAL PATHOGENS DNA [id number] 00:00:00 Test Item Value Reference Range Interpretation Comments YOKO SPECIES (test code = 57433) POSITIVE G. VAGINALIS (test code = 02750) NEGATIVE T. VAGINALIS (test code = 18969) NEGATIVE VAGINAL PATHOGENS DNA [id number] 00:00:00 Test Item Value Reference Range Interpretation Comments YOKO SPECIES (test code = 77136) POSITIVE G. VAGINALIS (test code = 34964) NEGATIVE T. VAGINALIS (test code = 44471) NEGATIVE VAGINAL PATHOGENS DNA [id number] 00:00:00 Test Item Value Reference Range Interpretation Comments YOKO SPECIES (test code = 19517) POSITIVE G. VAGINALIS (test code = 48332) NEGATIVE T. VAGINALIS (test code = 38419) NEGATIVE VAGINAL PATHOGENS DNA [id number] 00:00:00 Test Item Value Reference Range Interpretation Comments YOKO SPECIES (test code = 64998) POSITIVE G. VAGINALIS (test code = 74110) NEGATIVE T. VAGINALIS (test code = 83642) NEGATIVE VAGINAL PATHOGENS DNA [id number] 00:00:00 Test Item Value Reference Range Interpretation Comments YOKO SPECIES (test code = 56748) POSITIVE G. VAGINALIS (test code = 06089) NEGATIVE T. VAGINALIS (test code = 82761) NEGATIVE GC AND CHLAMYDIA, AMPLIFIED, [id number] 00:00:00 Test Item Value Reference Range Interpretation Comments GONORRHEA, TMA (test code = 39097) NEGATIVE CHLAMYDIA, TMA (test code = 36265) NEGATIVE GC AND CHLAMYDIA, AMPLIFIED, [id number] 00:00:00 Test Item Value Reference Range Interpretation Comments GONORRHEA, TMA (test code = 42963) NEGATIVE CHLAMYDIA, TMA (test code = 64423) NEGATIVE GC AND CHLAMYDIA, AMPLIFIED, [id number] 00:00:00 Test Item Value Reference Range Interpretation Comments GONORRHEA, TMA (test code = 38109) NEGATIVE CHLAMYDIA, TMA (test code = 24703) NEGATIVE GC AND CHLAMYDIA, AMPLIFIED, [id number] 00:00:00 Test Item Value Reference Range Interpretation Comments GONORRHEA, TMA (test code = 89086) NEGATIVE CHLAMYDIA, TMA (test code = 50958) NEGATIVE GC AND CHLAMYDIA, AMPLIFIED, [id number] 00:00:00 Test Item Value Reference Range Interpretation Comments GONORRHEA, TMA (test code = 86387) NEGATIVE CHLAMYDIA, TMA (test code = 57249) NEGATIVE GC AND CHLAMYDIA, AMPLIFIED, [id number] 00:00:00 Test Item Value Reference Range Interpretation Comments GONORRHEA, TMA (test code = 76838) NEGATIVE CHLAMYDIA, TMA (test code = 06669) NEGATIVE CULTURE, [id number] 00:00:00 Test Item Value Reference Range Interpretation Comments CULTURE, URINE (test SPECIMEN NUMBER: code = 77746) [id number] CULTURE, [id number] 00:00:00 Test Item Value Reference Range Interpretation Comments CULTURE, URINE (test SPECIMEN NUMBER: code = 29637) [id number] CULTURE, [id number] 00:00:00 Test Item Value Reference Range Interpretation Comments CULTURE, URINE (test SPECIMEN NUMBER: code = 81861) [id number] CULTURE, [id number] 00:00:00 Test Item Value Reference Range Interpretation Comments CULTURE, URINE (test SPECIMEN NUMBER: code = 35905) [id number] CULTURE, [id number] 00:00:00 Test Item Value Reference Range Interpretation Comments CULTURE, URINE (test SPECIMEN NUMBER: code = 71038) [id number] CULTURE, [id number] 00:00:00 Test Item Value Reference Range Interpretation Comments CULTURE, URINE (test SPECIMEN NUMBER: code = 39983) [id number] HEMOGLOBIN [id number] 00:00:00 Test Item Value Reference Range Interpretation Comments HEMOGLOBIN A1c (test code = 70598) 5.5 % HEMOGLOBIN [id number] 00:00:00 Test Item Value Reference Range Interpretation Comments HEMOGLOBIN A1c (test code = 04480) 5.5 % HEMOGLOBIN [id number] 00:00:00 Test Item Value Reference Range Interpretation Comments HEMOGLOBIN A1c (test code = 88947) 5.5 % CBC W/AUTO [id number] 00:00:00 Test Item Value Reference Range Interpretation [...] code = 1015) 310 K/UL CBC W/AUTO [id number] 00:00:00 Test Item Value Reference Range Interpretation [...] code = 1015) 310 K/UL CBC W/AUTO [id number] 00:00:00 Test Item Value Reference Range Interpretation [...] code = 1015) 310 K/UL COMPREHENSIVE METABOLIC [id number] 00:00:00 Test Item Value Reference Range Interpretation Comments GLUCOSE (test code = 2217) 73 MG/DL BUN (test code = 2208) 10 MG/DL CREATININE (test code = 2214) 0.51 MG/DL eGFR AMER. (test code 158 ML/MIN/1.73 = 07785) eGFR NON- AMER. (test 136 ML/MIN/1.73 code = 15242) CALCULATED BUN/CREAT (test 20 RATIO code = 2235) SODIUM (test code = 2231) 136 MEQ/L POTASSIUM (test code = 2228) 4.1 MEQ/L CHLORIDE (test code = 2215) 102 MEQ/L CARBON DIOXIDE (test code = 21 MEQ/L 220) CALCIUM (test code = 2209) 9.8 MG/DL PROTEIN, TOTAL (test code = 8.0 G/DL 222) ALBUMIN (test code = 2201) 4.3 G/DL CALCULATED GLOBULIN (test 3.7 G/DL code = 2240) CALCULATED A/G RATIO (test 1.2 RATIO code = 2234) BILIRUBIN, TOTAL (test code = 0.4 MG/DL 2206) ALKALINE PHOSPHATASE (test 54 U/L code = 2204) SGOT (AST) (test code = 2218) 21 U/L SGPT (ALT) (test code = 2219) 23 U/L COMPREHENSIVE METABOLIC [id number] 00:00:00 Test Item Value Reference Range Interpretation Comments GLUCOSE (test code = 2217) 73 MG/DL BUN (test code = 2208) 10 MG/DL CREATININE (test code = 2214) 0.51 MG/DL eGFR AMER. (test code 158 ML/MIN/1.73 = 86611) eGFR NON- AMER. (test 136 ML/MIN/1.73 code = 39463) CALCULATED BUN/CREAT (test 20 RATIO code = [...] (test code = 2219) 23 U/L LIPID [id number] 00:00:00 Test Item Value Reference Range Interpretation Comments CHOLESTEROL (test code = 2210) 167 MG/DL TRIGLYCERIDES (test code = 2232) 109 MG/DL HDL CHOLESTEROL (test code = 2220) 58 MG/DL CALCULATED LDL CHOL (test code = 87 MG/DL 2237) RISK RATIO LDL/HDL (test code = 1.50 RATIO 2238) LIPID [id number] 00:00:00 Test Item Value Reference Range Interpretation [...] (test code = 2821) 1.5 UIU/ML HEMOGLOBIN [id number] 00:00:00 Test Item Value Reference Range Interpretation Comments HEMOGLOBIN A1c (test code = 04934) 5.5 % HEMOGLOBIN [id number] 00:00:00 Test Item Value Reference Range Interpretation Comments HEMOGLOBIN A1c (test code = 06326) 5.5 % HEMOGLOBIN [id number] 00:00:00 Test Item Value Reference Range Interpretation Comments HEMOGLOBIN A1c (test code = 09666) 5.5 % HEMOGLOBIN [id number] 00:00:00 Test Item Value Reference Range Interpretation Comments HEMOGLOBIN A1c (test code = 41524) 5.5 % HEMOGLOBIN [id number] 00:00:00 Test Item Value Reference Range Interpretation Comments HEMOGLOBIN A1c (test code = 22641) 5.5 % CBC W/AUTO [id number] 00:00:00 Test Item Value Reference Range Interpretation [...] code = 1015) 310 K/UL CBC W/AUTO [id number] 00:00:00 Test Item Value Reference Range Interpretation [...] code = 1015) 310 K/UL CBC W/AUTO [id number] 00:00:00 Test Item Value Reference Range Interpretation [...] code = 1015) 310 K/UL COMPREHENSIVE METABOLIC [id number] 00:00:00 Test Item Value Reference Range Interpretation Comments GLUCOSE (test code = 2217) 73 MG/DL BUN (test code = 2208) 10 MG/DL CREATININE (test code = 2214) 0.51 MG/DL eGFR AMER. (test code 158 ML/MIN/1.73 = 90225) eGFR NON- AMER. (test 136 ML/MIN/1.73 code = 21444) CALCULATED BUN/CREAT (test 20 RATIO code = [...] code = 2219) 23 U/L COMPREHENSIVE METABOLIC [id number] 00:00:00 Test Item Value Reference Range Interpretation Comments GLUCOSE (test code = 2217) 73 MG/DL BUN (test code = 2208) 10 MG/DL CREATININE (test code = 2214) 0.51 MG/DL eGFR AMER. (test code 158 ML/MIN/1.73 = 90863) eGFR NON- AMER. (test 136 ML/MIN/1.73 code = 59583) CALCULATED BUN/CREAT (test 20 RATIO code = [...] (test code = 2219) 23 U/L LIPID [id number] 00:00:00 Test Item Value Reference Range Interpretation Comments CHOLESTEROL (test code = 2210) 167 MG/DL TRIGLYCERIDES (test code = 2232) 109 MG/DL HDL CHOLESTEROL (test code = 2220) 58 MG/DL CALCULATED LDL CHOL (test code = 87 MG/DL 2237) RISK RATIO LDL/HDL (test code = 1.50 RATIO 2238) LIPID [id number] 00:00:00 Test Item Value Reference Range Interpretation [...] (test code = 2821) 1.5 UIU/ML HEMOGLOBIN [id number] 00:00:00 Test Item Value Reference Range Interpretation Comments HEMOGLOBIN A1c (test code = 13490) 5.5 % CBC W/AUTO [id number] 00:00:00 Test Item Value Reference Range Interpretation [...] code = 1015) 310 K/UL CBC W/AUTO [id number] 00:00:00 Test Item Value Reference Range Interpretation [...] code = 1015) 310 K/UL CBC W/AUTO [id number] 00:00:00 Test Item Value Reference Range Interpretation [...] code = 1015) 310 K/UL COMPREHENSIVE METABOLIC [id number] 00:00:00 Test Item Value Reference Range Interpretation Comments GLUCOSE (test code = 2217) 73 MG/DL BUN (test code = 2208) 10 MG/DL CREATININE (test code = 2214) 0.51 MG/DL eGFR AMER. (test code 158 ML/MIN/1.73 = 30367) eGFR NON- AMER. (test 136 ML/MIN/1.73 code = 31694) CALCULATED BUN/CREAT (test 20 RATIO code = [...] code = 2219) 23 U/L COMPREHENSIVE METABOLIC [id number] 00:00:00 Test Item Value Reference Range Interpretation Comments GLUCOSE (test code = 2217) 73 MG/DL BUN (test code = 2208) 10 MG/DL CREATININE (test code = 2214) 0.51 MG/DL eGFR AMER. (test code 158 ML/MIN/1.73 = 70789) eGFR NON- AMER. (test 136 ML/MIN/1.73 code = 40718) CALCULATED BUN/CREAT (test 20 RATIO code = [...] (test code = 2219) 23 U/L LIPID [id number] 00:00:00 Test Item Value Reference Range Interpretation Comments CHOLESTEROL (test code = 2210) 167 MG/DL TRIGLYCERIDES (test code = 2232) 109 MG/DL HDL CHOLESTEROL (test code = 2220) 58 MG/DL CALCULATED LDL CHOL (test code = 87 MG/DL 223) RISK RATIO LDL/HDL (test code = 1.50 RATIO 2238) LIPID [id number] 00:00:00 Test Item Value Reference Range Interpretation [...]
--- NOTE | 2023-02-05 23:03 | ER ---
Nurse's Notes [facility] Name: Taylor Rodriguez Age: 27 yrs Sex: Female : 1995 Arrival Date: 02/05/2023 Time: 20:10 Bed IW1 Private MD: Diagnosis: Presentation: 02/05 20:25 Note patient called from [facility], currently in restroom. pf1 20:31 Chief complaint: Patient states: upper abdominal pain of 9,onset 2 weeks with diarrhea pf1 and bilateral leg pain,onset worse in 2 weeks. Patient stated history of fibromyalgia. Coronavirus screen: Vaccine status:. Ebola Screen: Patient negative for fever greater than or equal to 101.5 degrees Fahrenheit, and additional compatible Ebola Virus Disease symptoms. Initial Sepsis Screen: Does the patient meet any 2 criteria? No. Patient's initial sepsis screen is negative. Does the patient have a suspected source of infection? No. Patient's initial sepsis screen is negative. Risk Assessment: Do you want to hurt yourself or someone else? Patient reports no desire to harm self or others. 20:31 Method Of Arrival: Ambulatory pf1 20:31 Acuity: MILAN 3 pf1 Historical: - Allergies: 20:35 Naproxen; pf1 - Immunization history:: Adult Immunizations up to date, Client reports receiving the 2nd dose of the Covid vaccine, Last tetanus immunization:. - Social history:: Smoking status: Patient denies any tobacco usage or history of. Patient/guardian denies using alcohol, street drugs. Assessment: 23:00 General: Patient called from [facility], no response. Person from [facility] stated patient left pf1 and seen her get into a car.. Vital Signs: 20:31 BP 129 / 84; Pulse 71; Resp 18; Temp 99.1; Pulse Ox 98% on R/A; Weight 117.93 kg; pf1 Height 5 ft. 3 in. ; Pain 9/10; 20:31 Body Mass Index 46.06 (117.93 kg, 160.02 cm) pf1 20:31 Pain Scale: Adult pf1 ED Course: 20:13 Patient arrived in ED. kj1 20:35 Triage completed. pf1 20:51 Last Saldaña PA is PHCP. cp 20:51 Audi Floyd MD is Attending Physician. cp Administered Medications: No medications were administered Outcome: 23:03 Patient left the ED. pf1 Signatures: Last Saldaña PA PA cp Jackson, Kandis kj1 Glenny Faith RN RN pf1 Corrections: (The following items were deleted from the chart) 20:37 20:31 Chief complaint: Patient states: upper abdominal pain of 9,onset 2 weeks with pf1 diarrhea. pf1
[2023-02-05 23:45] VITALS: BP 129/84; TEMP 99.1; O2SAT 98
--- NOTE | 2023-02-06 23:03 | EDPHYS ---
Physician Documentation [facility] Name: Taylor Rodriguez Age: 27 yrs Sex: Female : 1995 Arrival Date: 02/05/2023 Time: 20:10 Bed IW1 Private MD: ED Physician Audi Floyd HPI: 02/05 22:00 This 27 yrs old Black Female presents to ER via Ambulatory with complaints of Abdominal cp Pain, Leg Swelling, Diarrhea - DARK STOOL. 22:00 The patient presents with abdominal pain. Associated signs and symptoms: Pertinent cp positives: diarrhea, black colored stools, Pertinent negatives: fever. Historical: - Allergies: 20:35 Naproxen; pf1 - Immunization history:: Adult Immunizations up to date, Client reports receiving the 2nd dose of the Covid vaccine, Last tetanus immunization:. - Social history:: Smoking status: Patient denies any tobacco usage or history of. Patient/guardian denies using alcohol, street drugs. ROS: 22:05 Constitutional: Negative for body aches, chills, fever, poor PO intake. cp 22:05 Eyes: Negative for injury, pain, redness, and discharge. cp 22:05 ENT: Negative for drainage from ear(s), ear pain, sore throat, difficulty swallowing, difficulty handling secretions. 22:05 Cardiovascular: Negative for chest pain. 22:05 Respiratory: Negative for cough, shortness of breath, wheezing. 22:05 Abdomen/GI: Positive for abdominal pain, diarrhea, black/tarry stool. 22:05 MS/extremity: Positive for leg swelling. 22:05 All other systems are negative. Exam: 22:10 Constitutional: The patient appears in no acute distress, alert, awake, cp non-diaphoretic, non-toxic, well developed, well nourished, obese. 22:10 Head/Face: Normocephalic, atraumatic. cp 22:10 Eyes: Periorbital structures: appear normal, Conjunctiva: normal, no exudate, no injection, Sclera: no appreciated abnormality, Lids and lashes: appear normal, bilaterally. 22:10 ENT: External ear(s): are unremarkable, Nose: is normal, Mouth: Lips: moist, Oral mucosa: pink and intact, moist, Posterior pharynx: is normal, airway is patent, no erythema, no exudate. 22:10 Chest/axilla: Inspection: normal. 22:10 Cardiovascular: Rate: normal, Rhythm: regular. 22:10 Respiratory: the patient does not display signs of respiratory distress, Respirations: normal, no use of accessory muscles, no retractions, labored breathing, is not present. 22:10 Abdomen/GI: Exam negative for discomfort, distension, guarding, Inspection: obese 22:10 Neuro: Orientation: to person, place \T\ time. Mentation: is normal. 22:10 Special observations: complaints out of proportion to exam, no evidence of discomfort. Vital Signs: 20:31 BP 129 / 84; Pulse 71; Resp 18; Temp 99.1; Pulse Ox 98% on R/A; Weight 117.93 kg; pf1 Height 5 ft. 3 in. ; Pain 9/10; 20:31 Body Mass Index 46.06 (117.93 kg, 160.02 cm) pf1 20:31 Pain Scale: Adult pf1 MDM: 20:51 Patient medically screened. cp 22:00 Differential diagnosis: appendicitis, bowel obstruction, Ovarian Torsion. cp 23:03 Data reviewed: vital signs, nurses notes. cp 02/05 21:43 Order name: IV Saline Lock cp 02/05 21:43 Order name: Labs collected and sent cp Administered Medications: No medications were administered Disposition Summary: 02/05/23 23:03 Eloped Disposition: post triage evaluation and consult pf1 Reason: unknown pf1 Signatures: Dispatcher [employer] EDMS Last Saldaña PA PA cp Finley, Pamala RN RN pf1 Corrections: (The following items were deleted from the chart) 02/06 23:02 22:59 Differential diagnosis: appendicitis, bowel obstruction, Ovarian Torsion, cp cp
== END 2023-02-05 23:03 | disposition left against medical advice (07) ==
LOC: ER 20:10
DX: R19.7 Diarrhea, unspecified (principal)
CPT/HCPCS: 99281

== ENCOUNTER 2023-02-11 22:38 | Emergency (ER) | payer OTHER ==
--- OUTSIDE RECORDS SUMMARY | 2023-02-11 22:57 | XMS REPORT | Continuity of Care Document ---
:1995 Author Organization [facility] t Address [address] [place] [address] Care Team Providers Name Role Phone Roman YOUNG, [facility] Primary Care Physician [phone] DARLIN VICK Attending Clinician Unavailable SPENSER STOKES Attending Clinician Unavailable GAURAV PURVIS Attending Clinician Unavailable KEYONNA BRIONES Attending Clinician Unavailable ROBYN GARY Attending Clinician Unavailable ANGELICA NEVAREZ Attending Clinician Unavailable SIMI JOHN Attending Clinician Unavailable LAB90 Attending Clinician Unavailable BYRON MALHOTRA Attending Clinician Unavailable OLENA TREVIÑO Attending Clinician Unavailable JAROD MOMIN Attending Clinician [...] SHEY BIANCHI Attending Clinician Unavailable Doctor Unassigned, Ricardo Attending Clinician Unavailable Shey Bianchi MD Attending [...] Policy Number Effective Date Expiration Date S our [employer]ET[employer] MP SILVER: 9 [id number] 2022 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 drier 0-12 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 00:00: 00 Medical Branch Pain Pain Disease Active 2016-08 Univers 0-12 ity of 00:00: 00 Medical Branch 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 0-12 it y of 00:00: 00 Medical Branch 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 9-14 ity of 00:00: 00 Medical Branch Manic Manic Disease Active Univers depression depression 9-14 it y of 00:00: [place] 00 Medical [facility] Allergies, Adverse Reactions, Alerts Allergy Allergy Status Severity Reaction(s) Onset Inactive Treating Comm ents Source Name Type Date Date Clinician Naproxen Propensi Active 2021-08 - Oral ty to 2-15 adverse 00:00: reaction 00 to drug Naproxen Propensi Active Johann Bowles ty to 5 reaction( Seybold adverse 00:00: s): - reaction 00 Unknown Externa s l Naproxen Propensi Active Nausea Univer s ty to and/or 04-28 ity of adverse Vomiting 00:00: [place] reaction 00 Medical s Branch NAPROXEN DRUG Active N/V Univers INGREDI 8- ity of 00:00: [place] 00 Medical Branch Naproxen Propensi Active ty to 5- adverse 00:00: reaction 00 to drug Codeine Propensi Active Jelena ty to 5-19 Seybold adverse 00:00: - reaction 00 Externa s l NO KNOWN Drug Active Univers ALLERGIE Class ity of [facility] Social History Social Habit Start Date Stop Date Quantity Comments Source Gender identity 2022-09-04 Identifies as Jelena Seybold - 10:33:35 male gender External (finding) Sexual orientation 2022-09-04 Jelena Eatonold - 10:33:35 External Exposure to Not sure University of SARS-CoV-2 (event) [place] [facility] History of tobacco Cigarette Smoker Jelena Patrice - use External History SDOH Jelena jerzy ld - Alcohol Frequency Externa l History SDOH Jelena Sejerzy ld - Alcohol Std 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 al History SDOH Jelena Ashley ld - [...] Quit Universit y of 00:00:00 00:00:00 smoking/vaping [facility] earlier this year Branch Sex Assigned At [birth year] F Jelena henley - 00:00:00 00:00:00 External Smoking Status Start Date Stop Date Source Occasional tobacco 2022-12-22 00:00:00 Jelena allenmarcel - smoker External Never smoked tobacco Jelena Eaton old - External Former smoker 2020-09-07 00:00:00 2020-09-07 [facility] 00:00:00 Medical Branch Medications Ordered Filled Start Stop Current Ordering Indication Dosage Frequency Signature Comments Components Source Medication Medication Date Date Medication? Clinician (SIG) Name Name Metoclopram Yes 10mg Take 1 Ashlie ey jonathan HCl 5-31 tablet (10 Seybol d (Reglan) 10 10:58: mg total) - MG oral 34 by mouth 4 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 a Tablet times l daily Dicyclomine Yes 20mg Take 1 Ashlie ey HCl 20 MG 5-31 tablet (20 Seyb old oral Tablet 10:58: mg total) - 34 by mouth Externa every 6 l (six) hours Cyanocobala Yes Take by Emanuel sey min 5-31 mouth Seybold (VITAMIN B 10:55: - 12 OR) 58 Externa l Topiramate Yes Topamax Ahslie ey (Topamax) 5-31 25mg Start Seyb old 25 MG oral 00:00: 1 po qd x - Tablet 00 3 days, 1 Externa po q 12 l hrs x 3 days, then 2 po q 12 hrs, Meclizine 0 Yes [id number] TAKE ONE Jelena HCl 25 MG 5-22 (1) Seybold oral Tablet 00:00: TABLET(S) - 00 BY MOUTH Externa THREE l TIMES A DAY NEEDED. Losartan Yes [id number] 1{tbl} Take 1 K elsey Potassium-H 5-15 tablet by Lit bold CTZ 50-12.5 00:00: mouth - MG oral 00 daily Externa Tablet l Gabapentin Yes [id number] 100mg Take 1 Jelena 100 MG oral 5-15 capsule Seybo ld Capsule 00:00: (100 mg - 00 total) by Externa mouth 3 l times daily Trazodone 0 2022- No [id number] 100mg Take 1 Jelena HCl 100 MG 5-01 05-01 tablet Seybol d oral Tablet 11:10: 00:00 (100 mg - 14 :00 total) by Externa mouth at l bedtime Cyanocobala Yes Take by Emanuel sey min 5-01 mouth Seybold (VITAMIN B 09:56: - 12 OR) 28 Externa l Tramadol 0 Yes [id number] 50mg Q.25D Take 1 K elsey HCl 5-01 tablet (50 Seybold (ULTRAM) 50 00:00: mg total) - MG oral 00 by mouth Externa Tablet every 6 l hours as needed for pain Tramadol 0 Yes [id number] 50mg Q.25D Take 1 K elsey HCl 5-01 tablet (50 Seybold (ULTRAM) 50 00:00: mg total) - MG oral 00 by mouth Externa Tablet every 6 l hours as needed for pain hydrOXYzine 0 Yes Jelena HCl 25 MG 4-26 Seybold oral Tablet 00:00: - 00 Externa l hydrOXYzine 2022-0 Yes Jelena HCl 25 MG 4-26 Seybold oral Tablet 00:00: - 00 Externa l Trazodone 2022-0 Yes [id number] 100mg Take 1 K elsey HCl 100 MG 4-24 tablet Seybold oral Tablet 08:55: (100 mg - 22 total) by Externa mouth at l bedtime Cyanocobala 2022-0 Yes Take by Emanuel sey min 4-24 mouth Seybold (VITAMIN B 08:55: - 12 OR) 22 Externa l Albuterol 2022-0 Yes [id number] 2{puff} Q.25D Inhale 2 Jelena HFA 108 (90 4-24 puffs into Se ybold Base) 00:00: the lungs - MCG/ACT IN 00 every 6 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 a AERS hours as l needed for wheezing or shortness of breath Meclizine 2022-0 Yes [id number] TAKE ONE Jelena HCl 25 MG 4-24 (1) Seybold oral Tablet 00:00: TABLET(S) - 00 BY MOUTH Externa THREE l TIMES A DAY NEEDED. Albuterol 2022-0 Yes [id number] 2{puff} Q.25D Inhale 2 Jelena HFA 108 (90 4-24 puffs into Se ybold Base) 00:00: the lungs - MCG/ACT IN 00 every 6 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 a AERS hours as l needed for wheezing or shortness of breath Albuterol 3-0 Yes [id number] 2{puff} Q.25D Inhale 2 Jelena HFA 108 (90 4-24 puffs into Se ybold Base) 00:00: the lungs - MCG/ACT IN 00 every 6 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 a AERS hours as l needed for wheezing or shortness of breath Cyclobenzap 2023-0 Yes 10mg Q.[id number] Take 1 Jelena rine HCl 10 4-22 [id number] tablet (10 Seybold MG oral 00:00: 3D mg total) - Tablet 00 by mouth Externa every 8 l hours as needed Cyclobenzap 2023-0 Yes 10mg Q.[id number] Take 1 Jelena rine HCl 10 4-22 [id number] tablet (10 Seybold MG oral 00:00: 3D mg total) - Tablet 00 by mouth Externa every 8 l hours as needed Cyclobenzap 2022-0 Yes 10mg Q.[id number] Take 1 Jelena rine HCl 10 - [id number] tablet (10 Seybold MG oral 00:00: 3D mg total) - Tablet 00 by mouth Externa every 8 l hours as needed Gabapentin 2022-0 Yes [id number] 100mg Take 1 Jelena 100 MG oral 4-20 capsule Seybo ld Capsule 00:00: (100 mg - 00 total) by Externa mouth 3 l times daily Gabapentin 2022-0 Yes [id number] 100mg Take 1 Jelena 100 MG oral [...] l Aripiprazol 2022-0 Yes 15mg Take 1 Ahslie ey e 15 MG 4-19 tablet (15 Seybol d oral Tablet 00:00: mg total) - 00 by mouth Externa at bedtime l Trazodone 2022-0 Yes [id number] 100mg Take 1 K elsey HCl 100 MG 4-13 tablet Seybold oral Tablet 10:58: (100 mg - 09 total) by Externa mouth at l bedtime Cyanocobala 2022-0 Yes Take by Emanuel sey min 4-13 mouth Seybold (VITAMIN B 10:58: - 12 OR) 09 Externa l Trazodone 3-0 Yes [id number] 100mg Take 1 K elsey HCl 100 MG 4-10 tablet Seybold oral Tablet 11:00: (100 mg - 07 total) by Externa mouth at l bedtime Cyanocobala 2022-0 Yes Take by Emanuel sey min 4-10 mouth Seybold (VITAMIN B 11:00: - 12 OR) 07 Externa l Propranolol 3-0 Yes [id number] TAKE ONE Jelena HCl 10 MG 4-10 (1) Seybold oral Tablet 00:00: TABLET(S) - 00 BY MOUTH Externa THREE l TIMES A DAY. Propranolol 2023-0 Yes [id number] TAKE ONE Jelena HCl 10 MG 4-10 [...] Release daily as needed Propranolol 2023-0 Yes [id number] TAKE ONE Jelena HCl 10 MG 4-10 [...] Release daily as needed Propranolol 2023-0 Yes [id number] TAKE ONE Jelena HCl 10 MG 4-10 [...] Release daily as needed Meloxicam 2023-0 Yes [id number] 15mg Take 1 Jelena 15 MG oral 4-06 tablet (15 Sey bold Tablet 00:00: mg total) - 00 by mouth Externa daily l Meloxicam 2023-0 Yes [id number] 15mg Take 1 Jelena 15 MG oral 4-06 tablet (15 Sey bold Tablet 00:00: mg total) - 00 by mouth Externa daily l Meloxicam 2023-0 Yes [id number] 15mg Take 1 Jelena 15 MG oral 4-06 tablet (15 Sey bold Tablet 00:00: mg total) - 00 by mouth Externa daily l Meloxicam 2023-0 Yes [id number] 15mg Take 1 Jelena 15 MG oral 4-06 tablet (15 Sey bold Tablet 00:00: mg total) - 00 by mouth Externa daily l Meloxicam 3-0 Yes [id number] 15mg Take 1 Jelena 15 MG oral [...] mouth l every morning Meclizine 2023-0 Yes [id number] TAKE ONE Jelena HCl 25 MG 3-24 (1) Seybold oral Tablet 00:00: TABLET(S) - 00 BY MOUTH Externa THREE l TIMES A DAY NEEDED. Meclizine 2023-0 Yes [id number] TAKE ONE Jelena HCl 25 MG 3-24 (1) Seybold oral Tablet 00:00: TABLET(S) - 00 BY MOUTH Externa THREE l TIMES A DAY NEEDED. Meclizine 2023-0 Yes [id number] TAKE ONE Jelena HCl 25 MG 3-24 (1) Seybold oral Tablet 00:00: TABLET(S) - 00 BY MOUTH Externa THREE l TIMES A DAY NEEDED. Losartan 3-0 Yes [id number] 1{tbl} Take 1 K elsey Potassium-H 3-22 tablet by Sey bold CTZ 50-12.5 00:00: mouth - MG oral 00 daily Externa Tablet l Losartan 2023-0 Yes [id number] 1{tbl} Take 1 K elsey Potassium-H 3-22 tablet by Sey bold CTZ 50-12.5 00:00: mouth - MG oral 00 daily Externa Tablet l Losartan 2023-0 Yes [id number] 1{tbl} Take 1 K elsey Potassium-H 3-22 tablet by Sey bold CTZ 50-12.5 00:00: mouth - MG oral 00 daily Externa Tablet l Losartan 2022-0 Yes [id number] 1{tbl} Take 1 K elsey Potassium-H 3-22 tablet by Sey bold CTZ 50-12.5 00:00: mouth - MG oral 00 daily Externa Tablet l Propranolol 2022-0 202- No [id number] TAKE ONE Jelena HCl 10 MG 3-10 04-10 (1) Seybold oral Tablet 00:00: 00:00 TABLET(S) - 00 :00 BY MOUTH Externa THREE l TIMES A DAY. Cholecalcif 2022-0 2022- No [id number] 98587C Take 1 Jelena juan 1.25 3-02 04-10 capsule Seybol d MG ([id number] 00:00: 00:00 (50,000 - UT) oral 00 :00 units Externa Capsule total) by l mouth twice a week for 8 doses Trazodone 0 Yes [id number] 100mg Take 100 Jelena HCl 100 MG [...] l DAY. hydroCHLORO 2022-0 Yes TAKE ONE Jc bangura thiazide 2-23 (1) Seybold 12.5 MG 00:00: CAPSULE(S) - oral 00 BY MOUTH Externa Capsule ONCE A l DAY. hydroCHLORO 2023-0 Yes TAKE ONE Jc bangura thiazide 2-23 (1) Seybold 12.5 MG 00:00: CAPSULE(S) - oral 00 BY MOUTH Externa Capsule ONCE A l DAY. hydrOXYzine 2023-0 Yes 50mg Q.[id number] Take 1 Jelena HCl 50 MG 2-13 [id number] tablet (50 Seybold oral Tablet 00:00: 3D mg total) - 00 by mouth Externa every 8 l hours as needed hydrOXYzine 2023-0 Yes 50mg Q.[id number] Take 1 Jelena HCl 50 MG 2-13 [id number] tablet (50 Seybold oral Tablet 00:00: 3D mg total) - 00 by mouth Externa every 8 l hours as needed hydrOXYzine 2023-0 Yes 50mg Q.[id number] Take 1 Jelena HCl 50 MG 2-13 [id number] tablet (50 Seybold oral Tablet 00:00: 3D mg total) - 00 by mouth Externa every 8 l hours as needed Losartan 2023-0 Yes [id number] 1{tbl} Take 1 K elsey Potassium-H 2-10 tablet by Sey bold CTZ 50-12.5 00:00: mouth - MG oral 00 daily Externa Tablet l Meclizine 2023-0 Yes [id number] 25mg Q.[id number] Take 1 Jelena HCl 25 MG 2-10 [id number] tablet (25 Seybold oral Tablet 00:00: 3D mg total) - 00 by mouth 3 Externa times l daily as needed Propranolol 2023-0 Yes [id number] 10mg Take 1 Jelena HCl 10 MG 2-10 tablet (10 Seyb old oral Tablet 00:00: mg total) - 00 by mouth 3 Externa times l daily Losartan 2023-0 Yes [id number] 1{tbl} Take 1 K elsey Potassium-H 2-10 tablet by Sey bold CTZ 50-12.5 00:00: mouth - MG oral 00 daily Externa Tablet l Meclizine 2023-0 Yes [id number] 25mg Q.[id number] Take 1 Jelena HCl 25 MG 2-10 [id number] tablet (25 Seybold oral Tablet 00:00: 3D mg total) - 00 by mouth 3 Externa times l daily as needed Propranolol 2022-0 Yes [id number] 10mg Take 1 Jelena HCl 10 MG 2-10 tablet (10 Seyb old oral Tablet 00:00: mg total) - 00 by mouth 3 Externa times l daily Doxycycline 2022-0 Yes [id number] 100mg Take 1 Jelena Hyclate 100 -31 tablet Seybol d MG oral 00:00: (100 mg - Tablet 00 total) by Externa mouth 2 l times daily Doxycycline 2022-0 2022- No [id number] 100mg Take 1 Jelena Hyclate 100 -31 02-28 tablet Seybo ld MG oral 00:00: 00:00 (100 mg - Tablet 00 :00 total) by Externa mouth 2 l times daily Trulicity Yes [id number] .75mg Inject Jelena 0.75 1-28 0.75 mg Seybold MG/0.5ML 00:00: into the - subcutaneou 00 skin once Ext jonathan s Solution a week l Pen-injecto r Trulicity Yes [id number] .75mg Inject Jelena 0.75 1-28 0.75 mg Seybold MG/0.5ML 00:00: into the - subcutaneou 00 skin once Ext jonathan s Solution a week l Pen-injecto r Trulicity Yes [id number] .75mg Inject Jelena 0.75 1-28 0.75 mg Seybold MG/0.5ML 00:00: into the - subcutaneou 00 skin once Ext jonathan s Solution a week l Pen-injecto r Trulicity Yes [id number] .75mg Inject Jelena 0.75 1-28 0.75 mg Seybold MG/0.5ML 00:00: into the - subcutaneou 00 skin once Ext jonathan s Solution a week l Pen-injecto r Aripiprazol 0 2022- No Kelse y e 20 MG 1-25 01-25 Seybold oral Tablet 11:11: 00:00 - 39 :00 Externa l Aripiprazol 2022-0 2022- No [id number] 10mg Take 10 mg Jelena e 10 MG 1-25 -25 by mouth 2 Seybo ld oral Tablet 11:11: 00:00 times - 26 :00 daily Externa l Trazodone 0 Yes [id number] 100mg Take 100 Jelena HCl 100 MG 1-25 mg by Seybold oral Tablet 10:31: mouth at - 22 bedtime Externa l Cyanocobala Yes Take by Emanuel sey min 1-25 mouth Seybold (VITAMIN B 10:31: - 12 OR) 22 Externa l Trazodone Yes [id number] 100mg Take 100 Jelena HCl 100 MG 1-25 mg by Seybold oral Tablet 10:31: mouth at - 22 bedtime Externa l Cyanocobala Yes Take by Emanuel sey min 1-25 mouth Seybold (VITAMIN B 10:31: - 12 OR) 22 Externa l hydroCHLORO Yes [id number] 12.5mg Take 1 Jelena thiazide 1-25 capsule Seybold 12.5 MG 00:00: (12.5 mg - oral 00 total) by Externa Capsule mouth l daily Ondansetron Yes [id number] 4mg Q.[id number] Take 1 Jelena (ZOFRAN) 4 -25 [id number] tablet (4 Seybold MG oral 00:00: 3D mg total) - TABLET 00 by mouth Externa DISPERSIBLE every 8 l hours as needed for nausea Tirzepatide Yes [id number] 2.5mg Inject 0.5 Jelena (Mounjaro) 1-25 mL (2.5 mg Sey bold 2.5 00:00: total) - MG/0.5ML 00 into the Externa subcutaneou skin once l s Solution a week Pen-injecto r Celecoxib Yes [id number] 200mg Take 1 Jelena (CeleBREX) 1-25 capsule Seybol d 200 MG oral 00:00: (200 mg - Capsule 00 total) by Externa mouth 2 l times daily Gabapentin Yes [id number] 100mg Take 1 Jelena 100 MG oral 1-25 capsule Seybo ld Capsule 00:00: (100 mg - 00 total) by Externa mouth 3 l times daily Ondansetron 2023-0 Yes [id number] 4mg Q.[id number] Take 1 Jelena (ZOFRAN) 4 1-25 [id number] tablet (4 Seybold MG oral 00:00: 3D mg total) - TABLET 00 by mouth Externa DISPERSIBLE every 8 l hours as needed for nausea Celecoxib 2023-0 Yes [id number] 200mg Take 1 Jelena (CeleBREX) 1-25 capsule Seybol d 200 MG oral 00:00: (200 mg - Capsule 00 total) by Externa mouth 2 l times daily Gabapentin 3-0 Yes [id number] 100mg Take 1 Jelena 100 MG oral 1-25 capsule Seybo ld Capsule 00:00: (100 mg - 00 total) by Externa mouth 3 l times daily Ondansetron 2023-0 Yes [id number] 4mg Q.[id number] Take 1 Jelena (ZOFRAN) 4 1-25 [id number] tablet (4 Seybold MG oral 00:00: 3D mg total) - TABLET 00 by mouth Externa DISPERSIBLE every 8 l hours as needed for nausea Celecoxib 3-0 Yes [id number] 200mg Take 1 Jelena (CeleBREX) 1-25 capsule Seybol d 200 MG oral 00:00: (200 mg - Capsule 00 total) by Externa mouth 2 l times daily Gabapentin 2023-0 Yes [id number] 100mg Take 1 Jelena 100 MG oral 1-25 capsule Seybo ld Capsule 00:00: (100 mg - 00 total) by Externa mouth 3 l times daily Ondansetron 2023-0 Yes [id number] 4mg Q.[id number] Take 1 Jelena (ZOFRAN) 4 1-25 [id number] tablet (4 Seybold MG oral 00:00: 3D mg total) - TABLET 00 by mouth Externa DISPERSIBLE every 8 l hours as needed for nausea Gabapentin 2023-0 Yes [id number] 100mg Take 1 Jelena 100 MG oral 1-25 capsule Seybo ld Capsule 00:00: (100 mg - 00 total) by Externa mouth 3 l times daily Ondansetron 2023-0 Yes [id number] 4mg Q.[id number] Take 1 Jelena (ZOFRAN) 4 1-25 [id number] tablet (4 Seybold MG oral 00:00: 3D mg total) - TABLET 00 by mouth Externa DISPERSIBLE every 8 l hours as needed for nausea Gabapentin 2022-0 Yes [id number] 100mg Take 1 Jelena 100 MG oral 1-25 capsule Seybo ld Capsule 00:00: (100 mg - 00 total) by Externa mouth 3 l times daily Ondansetron 2022-0 Yes [id number] 4mg Q.[id number] Take 1 Jelena (ZOFRAN) 4 1-25 [id number] tablet (4 Seybold MG oral 00:00: 3D mg total) - TABLET 00 by mouth Externa DISPERSIBLE every 8 l hours as needed for nausea Ondansetron 2022-0 Yes [id number] 4mg Q.[id number] Take 1 Jelena (ZOFRAN) 4 1-25 [id number] tablet (4 Seybold MG oral 00:00: 3D mg total) - TABLET 00 by mouth Externa DISPERSIBLE every 8 l hours as needed for nausea Ondansetron 2022-0 Yes [id number] 4mg Q.[id number] Take 1 Jelena (ZOFRAN) 4 1-25 [id number] tablet (4 Seybold MG oral 00:00: 3D mg total) - TABLET 00 by mouth Externa DISPERSIBLE every 8 l hours as needed for nausea hydroCHLORO 2022-0 2023- No [id number] 12.5mg Take 1 Jelena thiazide 1-25 02-10 [...] Implant 00 Externa l Docusate 2022-0 Yes [id number] 100mg Take 1 Ke lsey Sodium 1-13 capsule Seybold (Colace) 00:00: (100 mg - 100 MG oral 00 total) by Ext jonathan Capsule mouth l daily Ferrous 2022-0 Yes [id number] 325mg Take 1 Emanuel sey Sulfate 1-13 tablet Seybold (Iron) 325 00:00: (325 mg - (65 Fe) MG 00 total) by Exte rna oral Tablet mouth l daily (with breakfast) Docusate 2022-0 Yes [id number] 100mg Take 1 Ke lsey Sodium 1-13 capsule Seybold (Colace) 00:00: (100 mg - 100 MG oral 00 total) by Ext jonathan Capsule mouth l daily Ferrous 2022-0 Yes [id number] 325mg Take 1 Emanuel sey Sulfate 1-13 tablet Seybold (Iron) 325 00:00: (325 mg - (65 Fe) MG 00 total) by Exte rna oral Tablet mouth l daily (with breakfast) Docusate 2022-0 Yes [id number] 100mg Take 1 Ke lsey Sodium 1-13 capsule Seybold (Colace) 00:00: (100 mg - 100 MG oral 00 total) by Ext jonathan Capsule mouth l daily Ferrous 2022-0 Yes [id number] 325mg Take 1 Emanuel sey Sulfate 1-13 tablet Seybold (Iron) 325 00:00: (325 mg - (65 Fe) MG 00 total) by Exte rna oral Tablet mouth l daily (with breakfast) Docusate 2022-0 Yes [id number] 100mg Take 1 Ke lsey Sodium 1-13 capsule Seybold (Colace) 00:00: (100 mg - 100 MG oral 00 total) by Ext jonathan Capsule mouth l daily Ferrous 0 Yes [id number] 325mg Take 1 Emanuel sey Sulfate 1-13 tablet Seybold (Iron) 325 00:00: (325 mg - (65 Fe) MG 00 total) by Exte rna oral Tablet mouth l daily (with breakfast) Docusate 0 Yes [id number] 100mg Take 1 Ke lsey Sodium 1-13 capsule Seybold (Colace) 00:00: (100 mg - 100 MG oral 00 total) by Ext jonathan Capsule mouth l daily Ferrous 0 Yes [id number] 325mg Take 1 Emanuel sey Sulfate 1-13 tablet Seybold (Iron) 325 00:00: (325 mg - (65 Fe) MG 00 total) by Exte rna oral Tablet mouth l daily (with breakfast) Docusate 0 Yes [id number] 100mg Take 1 Ke lsey Sodium 1-13 capsule Seybold (Colace) 00:00: (100 mg - 100 MG oral 00 total) by Ext jonathan Capsule mouth l daily Ferrous 0 Yes [id number] 325mg Take 1 Emanuel sey Sulfate 1-13 tablet Seybold (Iron) 325 00:00: (325 mg - (65 Fe) MG 00 total) by Exte rna oral Tablet mouth l daily (with breakfast) Docusate 0 Yes [id number] 100mg Take 1 Ke lsey Sodium 1-13 capsule Seybold (Colace) 00:00: (100 mg - 100 MG oral 00 total) by Ext jonathan Capsule mouth l daily Ferrous 2022-0 Yes [id number] 325mg Take 1 Emanuel sey Sulfate 1-13 tablet Seybold (Iron) 325 00:00: (325 mg - (65 Fe) MG 00 total) by Exte rna oral Tablet mouth l daily (with breakfast) Docusate 0 Yes [id number] 100mg Take 1 Ke lsey Sodium 1-13 capsule Seybold (Colace) 00:00: (100 mg - 100 MG oral 00 total) by Ext jonathan Capsule mouth l daily Ferrous 2022-0 Yes [id number] 325mg Take 1 Emanuel sey Sulfate 1-13 tablet Seybold (Iron) 325 00:00: (325 mg - (65 Fe) MG 00 total) by Exte rna oral Tablet mouth l daily (with breakfast) Nitrofurant 2022- No [id number] 100mg Take 1 Jelena oin Monohyd -13 -25 capsule Seyb old Macro 00:00: 00:00 [...] 1-11 00:00: 00 LYRICA 150 2019- Yes [id number] Take 1 Univers mg capsule 2-21 capsule by ity of 00:00: mouth [place] 00 twice a Medical day for Branch neuropathi c pain as directed by physician. LYRICA 150 2019-08 Yes [id number] Take 1 Univers mg capsule 2-21 capsule by ity of 00:00: mouth [place] 00 twice a Medical day for Branch neuropathi c pain as directed by physician. LYRICA 150 2019-08 Yes [id number] Take 1 Univers mg capsule 2-21 capsule by ity of 00:00: mouth [place] 00 twice a Medical day for Branch neuropathi c pain as directed by physician. LYRICA 150 2019-08 Yes [id number] Take 1 Univers mg capsule 2-21 capsule by ity of 00:00: mouth [place] 00 twice a Medical day for Branch neuropathi c pain as directed by physician. LYRICA 150 2019-08 Yes [id number] Take 1 Univers mg capsule 2-21 capsule by ity of 00:00: mouth [place] 00 twice a Medical day for Branch neuropathi c pain as directed by physician. LYRICA 150 2019-08 Yes [id number] Take 1 Univers mg capsule 2-21 capsule by ity of 00:00: mouth [place] 00 twice a Medical day for Branch neuropathi c pain as directed by physician. LYRICA 150 2019-08 Yes [id number] Take 1 Univers mg capsule 2-21 capsule by ity of 00:00: mouth [place] 00 twice a Medical day for Branch neuropathi c pain as directed by physician. DULOXETINE 2019- 2020- No 60mg Take 60 mg Univers [...] No 60mg Take 60 mg Univers HCL 05-17- by mouth 3 ity of (CYMBALTA 16:16: [...] times Medical daily. Branch ofloxacin 2020-0 Yes [id number] 5[drp] Place 5 Univers 0.3 % otic 9-17 [id number] Drops in ity of drops 00:00: both ears [place] 00 3 (three) Medical times Branch daily. ofloxacin 2020-0 Yes [id number] 5[drp] Place 5 Univers 0.3 % otic 9-17 [id number] Drops in ity of drops 00:00: both ears [place] 00 3 (three) Medical times Branch daily. ofloxacin 2020-0 Yes [id number] 5[drp] Place 5 Univers 0.3 % otic 9-17 [id number] Drops in ity of drops 00:00: both ears [place] 00 3 (three) Medical times Branch daily. ofloxacin 2020-0 Yes [id number] 5[drp] Place 5 Univers 0.3 % otic 9-17 [id number] Drops in ity of drops 00:00: both ears [place] 00 3 (three) Medical times Branch daily. ofloxacin 2020-0 Yes [id number] 5[drp] Place 5 Univers 0.3 % otic 9-17 [id number] Drops in ity of drops 00:00: both ears [place] 00 3 (three) Medical times Branch daily. ofloxacin 2020-0 Yes [id number] 5[drp] Place 5 Univers 0.3 % otic 9-17 [id number] Drops in ity of drops 00:00: both ears [place] 00 3 (three) Medical times Branch daily. ofloxacin 2020-0 Yes [id number] 5[drp] Place 5 Univers 0.3 % otic 9-17 [id number] Drops in ity of drops 00:00: both ears [place] 00 3 (three) Medical times Branch daily. ofloxacin 2020-0 Yes [id number] 5[drp] Place 5 Univers 0.3 % otic 9-17 [id number] Drops in ity of drops 00:00: both ears [place] 00 3 (three) Medical times Branch daily. ofloxacin 2020-0 Yes [id number] 5[drp] Place 5 Univers 0.3 % otic 9-17 [id number] Drops in ity of drops 00:00: both ears [place] 00 3 (three) Medical times Branch daily. ofloxacin 2020-0 Yes [id number] 5[drp] Place 5 Univers 0.3 % otic 9-17 [id number] Drops in ity of drops 00:00: both ears [place] 00 3 (three) Medical times Branch daily. ofloxacin 2020-0 Yes [id number] 5[drp] Place 5 [facility] 0.3 % otic 9-17 [id number] Drops in ity of drops 00:00: both ears [place] 00 3 (three) Medical times Branch daily. ofloxacin 2020-0 Yes [id number] 5[drp] Place 5 [facility] 0.3 % otic 9-17 [id number] Drops in ity of drops 00:00: both ears [place] 00 3 (three) Medical times Branch daily. ofloxacin 2020-0 Yes [id number] 5[drp] Place 5 [facility] 0.3 % otic 9-17 [id number] Drops in ity of drops 00:00: both ears [place] 00 3 (three) Medical times Branch daily. ofloxacin 2020-0 Yes [id number] 5[drp] Place 5 [facility] 0.3 % otic 9-17 [id number] Drops in ity of drops 00:00: both ears [place] 00 3 (three) Medical times Branch daily. ofloxacin 2020-0 Yes [id number] 5[drp] Place 5 [facility] 0.3 % otic 9-17 [id number] Drops in ity of drops 00:00: both [...] Indication s: acute pain metoprolol 2020-0 Yes [id number] 50mg Take 1 Un nneka succinate 7-09 tablet by ity o f XL 50 mg 24 00:00: mouth [place] hr tablet 00 daily. Medical Branch hydroCHLORO 2020-0 Yes [id number] 25mg Take 1 [facility] thiazide 25 7- tablet by ity of mg tablet 00:00: mouth [place] 00 daily. Medical Branch baclofen 10 2020-0 Yes [id number] 10mg Take 1 [facility] mg tablet 03-08 [id number] tablet by ity of 00:00: mouth 3 [place] 00 (three) Medical times Branch daily as needed for Pain (scale 4-6). metoprolol 2020-0 Yes [id number] 50mg Take 1 [facility] nneka succinate 7-09 tablet by ity o f XL 50 mg 24 00:00: mouth [place] hr tablet 00 daily. [facility] hydroCHLORO 2020-0 Yes [id number] 25mg Take 1 [facility] thiazide 25 7-09 tablet by ity of mg tablet 00:00: mouth [place] 00 daily. Medical [facility] baclofen 10 2020-0 Yes [id number] 10mg Take 1 [facility] mg tablet 03-08 [id number] tablet by ity of 00:00: mouth 3 [place] 00 (three) Medical times Branch daily as needed for Pain (scale 4-6). metoprolol 2020-0 Yes [id number] 50mg Take 1 [facility] nneka succinate 7-09 tablet by ity o f XL 50 mg 24 00:00: mouth [place] hr tablet 00 daily. [facility] hydroCHLORO 2020-0 Yes [id number] 25mg Take 1 [facility] thiazide 25 7-09 tablet by ity of mg tablet 00:00: mouth [place] 00 daily. [facility] baclofen 10 2020-0 Yes [id number] 10mg Take 1 [facility] mg tablet 03-08 [id number] tablet by ity of 00:00: mouth 3 [place] 00 (three) Medical times Branch daily as needed for Pain (scale 4-6). metoprolol 2020-0 Yes [id number] 50mg Take 1 [facility] nneka succinate 7-09 tablet by ity o f XL 50 mg 24 00:00: mouth [place] hr tablet 00 daily. [facility] hydroCHLORO 2020-0 Yes [id number] 25mg Take 1 [facility] thiazide 25 7-09 tablet by ity of mg tablet 00:00: mouth [place] 00 daily. Medical [facility] baclofen 10 2019-0 Yes [id number] 10mg Take 1 [facility] mg tablet 03-08 [id number] tablet by ity of 00:00: mouth 3 [place] 00 (three) Medical times Branch daily as needed for Pain (scale 4-6). metoprolol 2020-0 Yes [id number] 50mg Take 1 [facility] nneka succinate 7-09 tablet by ity o f XL 50 mg 24 00:00: mouth [place] hr tablet 00 daily. [facility] hydroCHLORO 2020-0 Yes [id number] 25mg Take 1 [facility] thiazide 25 7-09 tablet by ity of mg tablet 00:00: mouth [place] 00 daily. [facility] baclofen 10 2019-0 Yes [id number] 10mg Take 1 [facility] mg tablet 03-08 [id number] tablet by ity of 00:00: mouth 3 [place] 00 (three) Medical times Branch daily as needed for Pain (scale 4-6). metoprolol 2020-0 Yes [id number] 50mg Take 1 [facility] nneka succinate 7-09 tablet by ity o f XL 50 mg 24 00:00: mouth [place] hr tablet 00 daily. [facility] hydroCHLORO 2020-0 Yes [id number] 25mg Take 1 [facility] thiazide 25 7-09 tablet by ity of mg tablet 00:00: mouth [place] 00 daily. Medical [facility] baclofen 10 2020-0 Yes [id number] 10mg Take 1 [facility] mg tablet 03-08 [id number] tablet by ity of 00:00: mouth 3 [place] 00 (three) Medical times Branch daily as needed for Pain (scale 4-6). metoprolol 2020-0 Yes [id number] 50mg Take 1 [facility] nneka succinate 7-09 tablet by ity o f XL 50 mg 24 00:00: mouth [place] hr tablet 00 daily. [facility] hydroCHLORO 2020-0 Yes [id number] 25mg Take 1 [facility] thiazide 25 7-09 tablet by ity of mg tablet 00:00: mouth [place] 00 daily. [facility] baclofen 10 2020-0 Yes [id number] 10mg Take 1 [facility] mg tablet 7- [id number] tablet by ity of 00:00: mouth 3 [place] 00 (three) Medical times Branch daily as needed for Pain (scale 4-6). metoprolol 2020-0 Yes [id number] 50mg Take 1 [facility] nneka succinate 7-09 tablet by ity o f XL 50 mg 24 00:00: mouth [place] hr tablet 00 daily. [facility] hydroCHLORO 2020-0 Yes [id number] 25mg Take 1 [facility] thiazide 25 7-09 tablet by ity of mg tablet 00:00: mouth [place] 00 daily. [facility] baclofen 10 2020-0 Yes [id number] 10mg Take 1 [facility] mg tablet 7- [id number] tablet by ity of 00:00: mouth 3 [place] 00 (three) Medical times Branch daily as needed for Pain (scale 4-6). metoprolol 2020-0 Yes [id number] 50mg Take 1 [facility] nneka succinate 7-09 tablet by ity o f XL 50 mg 24 00:00: mouth [place] hr tablet 00 daily. [facility] hydroCHLORO 2020-0 Yes [id number] 25mg Take 1 [facility] thiazide 25 7-09 tablet by ity of mg tablet 00:00: mouth [place] 00 daily. [facility] baclofen 10 2020-0 Yes [id number] 10mg Take 1 [facility] mg tablet 7- [id number] tablet by ity of 00:00: mouth 3 [place] 00 (three) Medical times Branch daily as needed for Pain (scale 4-6). metoprolol 2020-0 Yes [id number] 50mg Take 1 [facility] nneka succinate 7-09 tablet by ity o f XL 50 mg 24 00:00: mouth [place] hr tablet 00 daily. [facility] hydroCHLORO 2020-0 Yes [id number] 25mg Take 1 [facility] thiazide 25 7-09 tablet by ity of mg tablet 00:00: mouth [place] 00 daily. [facility] baclofen 10 2020-0 Yes [id number] 10mg Take 1 [facility] mg tablet 03-08 [id number] tablet by ity of 00:00: mouth 3 [place] 00 (three) Medical times Branch daily as needed for Pain (scale 4-6). metoprolol 2020-0 Yes [id number] 50mg Take 1 [facility] nneka succinate 7-09 tablet by ity o f XL 50 mg 24 00:00: mouth [place] hr tablet 00 daily. [facility] hydroCHLORO 2020-0 Yes [id number] 25mg Take 1 [facility] thiazide 25 7-09 tablet by ity of mg tablet 00:00: mouth [place] 00 daily. [facility] baclofen 10 2020-0 Yes [id number] 10mg Take 1 [facility] mg tablet 03-08 [id number] tablet by ity of 00:00: mouth 3 [place] 00 (three) Medical times Branch daily as needed for Pain (scale 4-6). metoprolol 2020-0 Yes [id number] 50mg Take 1 [facility] nneka succinate 7-09 tablet by ity o f XL 50 mg 24 00:00: mouth [place] hr tablet 00 daily. [facility] hydroCHLORO 2020-0 Yes [id number] 25mg Take 1 [facility] thiazide 25 7-09 tablet by ity of mg tablet 00:00: mouth [place] 00 daily. [facility] baclofen 10 2020-0 Yes [id number] 10mg Take 1 [facility] mg tablet 03-08 [id number] tablet by ity of 00:00: mouth 3 [place] 00 (three) Medical times Branch daily as needed for Pain (scale 4-6). metoprolol 2020-0 Yes [id number] 50mg Take 1 [facility] nneka succinate 7-09 tablet by ity o f XL 50 mg 24 00:00: mouth [place] hr tablet 00 daily. [facility] hydroCHLORO 2020-0 Yes [id number] 25mg Take 1 [facility] thiazide 25 7-09 tablet by ity of mg tablet 00:00: mouth [place] 00 daily. [facility] baclofen 10 2020-0 Yes [id number] 10mg Take 1 [facility] mg tablet 7- [id number] tablet by ity of 00:00: mouth 3 [place] 00 (three) Medical times Branch daily as needed for Pain (scale 4-6). metoprolol 2020-0 Yes [id number] 50mg Take 1 [facility] nneka succinate 7-09 tablet by ity o f XL 50 mg 24 00:00: mouth [place] hr tablet 00 daily. [facility] hydroCHLORO 2020-0 Yes [id number] 25mg Take 1 [facility] thiazide 25 7-09 tablet by ity of mg tablet 00:00: mouth [place] 00 daily. [facility] baclofen 10 2020-0 Yes [id number] 10mg Take 1 [facility] mg tablet 7- [id number] tablet by ity of 00:00: mouth 3 [place] 00 (three) Medical times Branch daily as needed for Pain (scale 4-6). metoprolol 2020-0 Yes [id number] 50mg Take 1 [facility] nneka succinate 7-09 tablet by ity o f XL 50 mg 24 00:00: mouth [place] hr tablet 00 daily. [facility] hydroCHLORO 2020-0 Yes [id number] 25mg Take 1 [facility] thiazide 25 7-09 tablet by ity of mg tablet 00:00: mouth [place] 00 daily. [facility] baclofen 10 2020-0 Yes [id number] 10mg Take 1 [facility] mg tablet 03-08 [id number] tablet by ity of 00:00: mouth 3 [place] 00 (three) Medical times Branch daily as needed for Pain (scale 4-6). metoprolol 2020-0 Yes [id number] 50mg Take 1 [facility] nneka succinate 7-09 tablet by ity o f XL 50 mg 24 00:00: mouth [place] hr tablet 00 daily. [facility] hydroCHLORO 2020-0 Yes [id number] 25mg Take 1 [facility] thiazide 25 7-09 tablet by ity of mg tablet 00:00: mouth [place] 00 daily. [facility] baclofen 10 2020-0 Yes [id number] 10mg Take 1 [facility] mg tablet 03-08 [id number] tablet by ity of 00:00: mouth 3 [place] 00 (three) Medical times Branch daily as needed for Pain (scale 4-6). metoprolol 2020-0 Yes [id number] 50mg Take 1 [facility] nneka succinate 7-09 tablet by ity o f XL 50 mg 24 00:00: mouth [place] hr tablet 00 daily. [facility] hydroCHLORO 2020-0 Yes [id number] 25mg Take 1 [facility] thiazide 25 7-09 tablet by ity of mg tablet 00:00: mouth [place] 00 daily. [facility] baclofen 10 2020-0 Yes [id number] 10mg Take 1 [facility] mg tablet 7- [id number] tablet by ity of 00:00: mouth 3 [place] 00 (three) Medical times Branch daily as needed for Pain (scale 4-6). metoprolol 2020-0 Yes [id number] 50mg Take 1 [facility] nneka succinate 7-09 tablet by ity o f XL 50 mg 24 00:00: mouth [place] hr tablet 00 daily. [facility] hydroCHLORO 2020-0 Yes [id number] 25mg Take 1 [facility] thiazide 25 7-09 tablet by ity of mg tablet 00:00: mouth [place] 00 daily. [facility] baclofen 10 2020-0 Yes [id number] 10mg Take 1 [facility] mg tablet 7- [id number] tablet by ity of 00:00: mouth 3 [place] 00 (three) Medical times Branch daily as needed for Pain (scale 4-6). metoprolol 2020-0 Yes [id number] 50mg Take 1 [facility] nneka succinate 7-09 tablet by ity o f XL 50 mg 24 00:00: mouth [place] hr tablet 00 daily. [facility] hydroCHLORO 2020-0 Yes [id number] 25mg Take 1 [facility] thiazide 25 7-09 tablet by ity of mg tablet 00:00: mouth [place] 00 daily. [facility] baclofen 10 2020-0 Yes [id number] 10mg Take 1 [facility] mg tablet 03-08 [id number] tablet by ity of 00:00: mouth 3 [place] 00 (three) Medical times Branch daily as needed for Pain (scale 4-6). metoprolol 2020-0 Yes [id number] 50mg Take 1 [facility] nneka succinate 7-09 tablet by ity o f XL 50 mg 24 00:00: mouth [place] hr tablet 00 daily. [facility] hydroCHLORO 2020-0 Yes [id number] 25mg Take 1 [facility] thiazide 25 7-09 tablet by ity of mg tablet 00:00: mouth [place] 00 daily. [facility] baclofen 10 2020-0 Yes [id number] 10mg Take 1 [facility] mg tablet 7- [id number] tablet by ity of 00:00: mouth 3 [place] 00 (three) Medical times Branch daily as needed for Pain (scale 4-6). metoprolol 2020-0 Yes [id number] 50mg Take 1 [facility] nneka succinate 7-09 tablet by ity o f XL 50 mg 24 00:00: mouth [place] hr tablet 00 daily. [facility] hydroCHLORO 2020-0 Yes [id number] 25mg Take 1 [facility] thiazide 25 7-09 tablet by ity of mg tablet 00:00: mouth [place] 00 daily. [facility] baclofen 10 2020-0 Yes [id number] 10mg Take 1 [facility] mg tablet 7 [id number] tablet by ity of 00:00: mouth 3 [place] 00 (three) Medical times Branch daily as needed for Pain (scale 4-6). metoprolol 2020-0 Yes [id number] 50mg Take 1 [facility] nneka succinate 7-09 tablet by ity o f XL 50 mg 24 00:00: mouth [place] hr tablet 00 daily. [facility] hydroCHLORO 2020-0 Yes [id number] 25mg Take 1 [facility] thiazide 25 7-09 tablet by ity of mg tablet 00:00: mouth [place] 00 daily. [facility] baclofen 10 2020-0 Yes [id number] 10mg Take 1 [facility] mg tablet 03-08 [id number] tablet by ity of 00:00: mouth 3 [place] 00 (three) Medical times Branch daily as needed for Pain (scale 4-6). metoprolol 2020-0 Yes [id number] 50mg Take 1 [facility] nneka succinate 7-09 tablet by ity o f XL 50 mg 24 00:00: mouth [place] hr tablet 00 daily. [facility] hydroCHLORO 2020-0 Yes [id number] 25mg Take 1 [facility] thiazide 25 7-09 tablet by ity of mg tablet 00:00: mouth [place] 00 daily. [facility] baclofen 10 2020-0 Yes [id number] 10mg Take 1 [facility] mg tablet 03-08 [id number] tablet by ity of 00:00: mouth 3 [place] 00 (three) Medical times Branch daily as needed for Pain (scale 4-6). metoprolol 2020-0 Yes [id number] 50mg Take 1 [facility] nneka succinate 7-09 tablet by ity o f XL 50 mg 24 00:00: mouth [place] hr tablet 00 daily. [facility] hydroCHLORO 2020-0 Yes [id number] 25mg Take 1 [facility] thiazide 25 7-09 tablet by ity of mg tablet 00:00: mouth [place] 00 daily. Medical [facility] baclofen 10 2020-0 Yes [id number] 10mg Take 1 [facility] mg tablet 7- [id number] tablet by ity of 00:00: mouth 3 [place] 00 (three) Medical times Branch daily as needed for Pain (scale 4-6). metoprolol 2020-0 Yes [id number] 50mg Take 1 [facility] nneka succinate 7-09 tablet by ity o f XL 50 mg 24 00:00: mouth [place] hr tablet 00 daily. [facility] hydroCHLORO 2020-0 Yes [id number] 25mg Take 1 [facility] thiazide 25 03-08 tablet by ity of mg tablet 00:00: mouth [place] 00 daily. [facility] baclofen 10 2020-0 Yes [id number] 10mg Take 1 [facility] mg tablet 03-08 [id number] tablet by ity of 00:00: mouth 3 [place] 00 (three) Medical times Branch daily as needed for Pain (scale 4-6). DULOXETINE 2020-0 Yes 60mg Take 60 mg U nivers HCL 2-25 by mouth 3 ity of (CYMBALTA 14:58: (three) [place] ORAL) 32 times Medical daily. Branch VITAMIN B 2020-0 Yes Take by Unive rs COMPLEX 2-25 mouth. ity of ORAL 14:58: [address] Branch traZODONE 2020-0 Yes 100mg Take 100 [facility] vers 100 mg 2-25 mg by ity of tablet 14:58: mouth at [place] [address] bedtime. Medical Branch benztropine 2020-0 Yes 1mg Take 1 mg U nivers 1 mg tablet 2-25 by mouth ity of 14:58: daily. [address] Branch DULOXETINE 2020-0 Yes 60mg Take 60 mg U nivers HCL 2-25 by mouth 3 ity of (CYMBALTA 14:58: (three) [place] ORAL) 32 times Medical daily. Branch VITAMIN B 2020-0 Yes Take by Unive rs COMPLEX 2-25 mouth. ity of ORAL 14:58: [place] [address] Medical Branch traZODONE 2020-0 Yes 100mg Take 100 [facility] vers 100 mg 2-25 mg by ity of tablet 14:58: mouth at [place] [address] bedtime. Medical Branch benztropine 2020-0 Yes 1mg Take 1 mg U nivers 1 mg tablet 2-25 by mouth ity of 14:58: daily. [address] Branch DULOXETINE 2020-0 Yes 60mg Take 60 mg U nivers HCL 2-25 by mouth 3 ity of (CYMBALTA 14:58: (three) [place] ORAL) 32 times Medical daily. Branch VITAMIN B 2020-0 Yes Take by Unive rs COMPLEX 2-25 mouth. ity of ORAL 14:58: [place] [address] Medical Branch traZODONE 2020-0 Yes 100mg Take 100 [facility] vers 100 mg 2-25 mg by ity of tablet 14:58: mouth at [place] [address] bedtime. Medical Branch benztropine 2020-0 Yes 1mg Take 1 mg U nivers 1 mg tablet 2-25 by mouth ity of 14:58: daily. [place] [address] Medical Branch DULOXETINE 2020-0 Yes 60mg Take 60 mg U nivers HCL 2-25 by mouth 3 ity of (CYMBALTA 14:58: (three) [place] ORAL) 32 times Medical daily. Branch VITAMIN B 2020-0 Yes Take by Unive rs COMPLEX 2-25 mouth. ity of ORAL 14:58: [place] [address] Medical Branch traZODONE 2020-0 Yes 100mg Take 100 [facility] vers 100 mg 2-25 mg by ity of tablet 14:58: mouth at [place] [address] bedtime. Medical Branch benztropine 2020-0 Yes 1mg Take 1 mg U nivers 1 mg tablet 2-25 by mouth ity of 14:58: daily. [place] [address] Medical Branch DULOXETINE 2020-0 Yes 60mg Take 60 mg U nivers HCL 2-25 by mouth 3 ity of (CYMBALTA 14:58: (three) [place] ORAL) 32 times Medical daily. Branch VITAMIN B 2020-0 Yes Take by Unive rs COMPLEX 2-25 mouth. ity of ORAL 14:58: [place] [address] Medical Branch traZODONE 2020-0 Yes 100mg Take 100 [facility] vers 100 mg 2-25 mg by ity of tablet 14:58: mouth at [place] [address] bedtime. Medical Branch benztropine 2020-0 Yes 1mg Take 1 mg U nivers 1 mg tablet 2-25 by mouth ity of 14:58: daily. [place] [address] Medical Branch DULOXETINE 2020-0 Yes 60mg Take 60 mg U nivers HCL 2-25 by mouth 3 ity of (CYMBALTA 14:58: (three) [place] ORAL) 32 times Medical daily. Branch VITAMIN B 2020-0 Yes Take by Unive rs COMPLEX 2-25 mouth. ity of ORAL 14:58: [place] [address] Medical Branch traZODONE 2020-0 Yes 100mg Take 100 [facility] vers 100 mg 2-25 mg by ity of tablet 14:58: mouth at [place] [address] bedtime. Medical Branch benztropine 2020-0 Yes 1mg Take 1 mg U nivers 1 mg tablet 2-25 by mouth ity of 14:58: daily. [place] [address] Medical Branch DULOXETINE 2020-0 Yes 60mg Take 60 mg U nivers HCL 2-25 by mouth 3 ity of (CYMBALTA 14:58: (three) [place] ORAL) 32 times Medical daily. Branch VITAMIN B 2020-0 Yes Take by Unive rs COMPLEX 2-25 mouth. ity of ORAL 14:58: [place] [address] Medical Branch traZODONE 2020-0 Yes 100mg Take 100 [facility] vers 100 mg 2-25 mg by ity of tablet 14:58: mouth at [place] [address] bedtime. Medical Branch benztropine 2020-0 Yes 1mg Take 1 mg U nivers 1 mg tablet 2-25 by mouth ity of 14:58: daily. [place] [address] Medical Branch DULOXETINE 2020-0 Yes 60mg Take 60 mg U nivers HCL 2-25 by mouth 3 ity of (CYMBALTA 14:58: (three) [place] ORAL) 32 times Medical daily. Branch VITAMIN B 2020-0 Yes Take by Unive rs COMPLEX 2-25 mouth. ity of ORAL 14:58: [place] [address] Medical Branch traZODONE 2020-0 Yes 100mg Take 100 [facility] vers 100 mg 2-25 mg by ity of tablet 14:58: mouth at [place] [address] bedtime. Medical Branch benztropine 2020-0 Yes 1mg Take 1 mg U nivers 1 mg tablet 2-25 by mouth ity of 14:58: daily. [place] [address] Medical Branch DULOXETINE 2020-0 Yes 60mg Take 60 mg U nivers HCL 2-25 by mouth 3 ity of (CYMBALTA 14:58: (three) [place] ORAL) 32 times Medical daily. Branch VITAMIN B 2020-0 Yes Take by Unive rs COMPLEX 2-25 mouth. ity of ORAL 14:58: [place] [address] Medical Branch traZODONE 2020-0 Yes 100mg Take 100 [facility] vers 100 mg 2-25 mg by ity of tablet 14:58: mouth at [place] [address] bedtime. Medical Branch benztropine 2020-0 Yes 1mg Take 1 mg U nivers 1 mg tablet 2-25 by mouth ity of 14:58: daily. [place] [address] Medical Branch DULOXETINE 2020-0 Yes 60mg Take 60 mg U nivers HCL 2-25 by mouth 3 ity of (CYMBALTA 14:58: (three) [place] ORAL) 32 times Medical daily. Branch VITAMIN B 2020-0 Yes Take by Unive rs COMPLEX 2-25 mouth. ity of ORAL 14:58: [place] [address] Medical Branch traZODONE 2020-0 Yes 100mg Take 100 [facility] vers 100 mg 2-25 mg by ity of tablet 14:58: mouth at [place] [address] bedtime. Medical Branch benztropine 2020-0 Yes 1mg Take 1 mg U nivers 1 mg tablet 2-25 by mouth ity of 14:58: daily. [place] [address] Medical Branch DULOXETINE 2020-0 Yes 60mg Take 60 mg U nivers HCL 2-25 by mouth 3 ity of (CYMBALTA 14:58: (three) [place] ORAL) 32 times Medical daily. Branch VITAMIN B 2020-0 Yes Take by Unive rs COMPLEX 2-25 mouth. ity of ORAL 14:58: [place] [address] Medical Branch traZODONE 2020-0 Yes 100mg Take 100 [facility] vers 100 mg 2-25 mg by ity of tablet 14:58: mouth at [place] [address] bedtime. Medical Branch benztropine 2020-0 Yes 1mg Take 1 mg U nivers 1 mg tablet 2-25 by mouth ity of 14:58: daily. [place] [address] Medical Branch DULOXETINE 2020-0 Yes 60mg Take 60 mg U nivers HCL 2-25 by mouth 3 ity of (CYMBALTA 14:58: (three) [place] ORAL) 32 times Medical daily. Branch VITAMIN B 2020-0 Yes Take by Unive rs COMPLEX 2-25 mouth. ity of ORAL 14:58: [place] [address] Medical Branch traZODONE 2020-0 Yes 100mg Take 100 [facility] vers 100 mg 2-25 mg by ity of tablet 14:58: mouth at [place] [address] bedtime. Medical Branch benztropine 2020-0 Yes 1mg Take 1 mg U nivers 1 mg tablet 2-25 by mouth ity of 14:58: daily. [place] [address] Medical Branch DULOXETINE 2020-0 Yes 60mg Take 60 mg U nivers HCL 2-25 by mouth 3 ity of (CYMBALTA 14:58: (three) [place] ORAL) 32 times Medical daily. Branch VITAMIN B 2020-0 Yes Take by Unive rs COMPLEX 2-25 mouth. ity of ORAL 14:58: [place] [address] Medical Branch traZODONE 2020-0 Yes 100mg Take 100 [facility] vers 100 mg 2-25 mg by ity of tablet 14:58: mouth at [place] [address] bedtime. Medical Branch benztropine 2020-0 Yes 1mg Take 1 mg U nivers 1 mg tablet 2-25 by mouth ity of 14:58: daily. [place] [address] Medical Branch DULOXETINE 2020-0 Yes 60mg Take 60 mg U nivers HCL 2-25 by mouth 3 ity of (CYMBALTA 14:58: (three) [place] ORAL) 32 times Medical daily. Branch VITAMIN B 2020-0 Yes Take by Unive rs COMPLEX 2-25 mouth. ity of ORAL 14:58: [place] [address] Medical Branch traZODONE 2020-0 Yes 100mg Take 100 [facility] vers 100 mg 2-25 mg by ity of tablet 14:58: mouth at [place] [address] bedtime. Medical Branch benztropine 2020-0 Yes 1mg Take 1 mg U nivers 1 mg tablet 2-25 by mouth ity of 14:58: daily. [place] [address] Medical Branch DULOXETINE 2020-0 Yes 60mg Take 60 mg U nivers HCL 2-25 by mouth 3 ity of (CYMBALTA 14:58: (three) [place] ORAL) 32 times Medical daily. Branch VITAMIN B 2020-0 Yes Take by Unive rs COMPLEX 2-25 mouth. ity of ORAL 14:58: [place] [address] Medical Branch traZODONE 2020-0 Yes 100mg Take 100 [facility] vers 100 mg 2-25 mg by ity of tablet 14:58: mouth at [place] [address] bedtime. Medical Branch benztropine 2020-0 Yes 1mg Take 1 mg U nivers 1 mg tablet 2-25 by mouth ity of 14:58: daily. [place] [address] Medical Branch DULOXETINE 2020-0 Yes 60mg Take 60 mg U nivers HCL 2-25 by mouth 3 ity of (CYMBALTA 14:58: (three) [place] ORAL) 32 times Medical daily. Branch VITAMIN B 2020-0 Yes Take by Unive rs COMPLEX 2-25 mouth. ity of ORAL 14:58: [place] [address] Medical Branch traZODONE 2020-0 Yes 100mg Take 100 [facility] vers 100 mg 2-25 mg by ity of tablet 14:58: mouth at [place] [address] bedtime. Medical Branch benztropine 2020-0 Yes 1mg Take 1 mg U nivers 1 mg tablet 2-25 by mouth ity of 14:58: daily. [place] 32 Medical Branch DULOXETINE 2020-0 Yes 60mg Take 60 mg U nivers HCL 2-25 by mouth 3 ity of (CYMBALTA 14:58: (three) [place] ORAL) 32 times Medical daily. Branch VITAMIN B 2020-0 Yes Take by Unive rs COMPLEX 2-25 mouth. ity of ORAL 14:58: [address] traZODONE 2020-0 Yes 100mg Take 100 [facility] vers 100 mg 2-25 mg by ity of tablet 14:58: mouth at [place] [address] bedtime. Medical Branch benztropine 2020-0 Yes 1mg Take 1 mg U nivers 1 mg tablet 2-25 by mouth ity of 14:58: daily. [address] VITAMIN B 2020-0 Yes Take by Unive rs COMPLEX 2-25 mouth. ity of ORAL 14:58: [address] traZODONE 2020-0 Yes 100mg Take 100 [facility] vers 100 mg 2-25 mg by ity of tablet 14:58: mouth at [place] [address] bedtime. Medical Branch benztropine 2020-0 Yes 1mg Take 1 mg U nivers 1 mg tablet 2-25 by mouth ity of 14:58: daily. [address] VITAMIN B 2020-0 Yes Take by Un[facility] rs COMPLEX 2-25 mouth. ity of ORAL 14:58: [address] traZODONE 2020-0 Yes 100mg Take 100 [facility] vers 100 mg 2-25 mg by ity of tablet 14:58: mouth at [place] [address] bedtime. Medical Branch benztropine 2020-0 Yes 1mg Take 1 mg U nivers 1 mg tablet 2-25 by mouth ity of 14:58: daily. [address] VITAMIN B 2020-0 Yes Take by Unive rs COMPLEX 2-25 mouth. ity of ORAL 14:58: [address] traZODONE 2020-0 Yes 100mg Take 100 [facility] vers 100 mg 2-25 mg by ity of tablet 14:58: mouth at [place] [address] bedtime. Medical Branch benztropine 2020-0 Yes 1mg Take 1 mg U nivers 1 mg tablet 2-25 by mouth ity of 14:58: daily. [address] VITAMIN B 2020-0 Yes Take by Un[facility] rs COMPLEX 2-25 mouth. ity of ORAL 14:58: [address] traZODONE 2020-0 Yes 100mg Take 100 [facility] vers 100 mg 2-25 mg by ity of tablet 14:58: mouth at [place] [address] bedtime. Medical Branch benztropine 2020-0 Yes 1mg Take 1 mg U nivers 1 mg tablet 2-25 by mouth ity of 14:58: daily. [address] VITAMIN B 2020-0 Yes Take by Un[facility] rs COMPLEX 2-25 mouth. ity of ORAL 14:58: [address] traZODONE 2020-0 Yes 100mg Take 100 [facility] vers 100 mg 2-25 mg by ity of tablet 14:58: mouth at [place] [address] bedtime. Medical Branch benztropine 2020-0 Yes 1mg Take 1 mg U nivers 1 mg tablet 2-25 by mouth ity of 14:58: daily. [address] VITAMIN B 2020-0 Yes Take by Un[facility] rs COMPLEX 2-25 mouth. ity of ORAL 14:58: [address] traZODONE 2020-0 Yes 100mg Take 100 [facility] vers 100 mg 2-25 mg by ity of tablet 14:58: mouth at [place] [address] bedtime. Medical Branch benztropine 2020-0 Yes 1mg Take 1 mg U nivers 1 mg tablet 2-25 by mouth ity of 14:58: daily. [address] VITAMIN B 2020-0 Yes Take by Un[facility] rs COMPLEX 2-25 mouth. ity of ORAL 14:58: [address] traZODONE 2020-0 Yes 100mg Take 100 [facility] vers 100 mg 2-25 mg by ity of tablet 14:58: mouth at [place] [address] bedtime. Medical Branch benztropine 2020-0 Yes 1mg Take 1 mg U nivers 1 mg tablet 2-25 by mouth ity of 14:58: daily. [address] VITAMIN B 2020-0 Yes Take by Unive rs COMPLEX 2-25 mouth. ity of ORAL 14:58: [address] traZODONE 2020-0 Yes 100mg Take 100 [facility] vers 100 mg 2-25 mg by ity of tablet 14:58: mouth at [place] [address] bedtime. Medical Branch benztropine 2020-0 Yes 1mg Take 1 mg U nivers 1 mg tablet 2-25 by mouth ity of 14:58: daily. [address] VITAMIN B 2020-0 Yes Take by Unive rs COMPLEX 2-25 mouth. ity of ORAL 14:58: [address] traZODONE 2020-0 Yes 100mg Take 100 Uni vers 100 mg 2-25 mg by ity of tablet 14:58: mouth at [place] [address] bedtime. [facility] Branch benztropine 2020-0 Yes 1mg Take 1 mg U nivers 1 mg tablet 2-25 by mouth ity of 14:58: daily. [address] VITAMIN B 2020-0 Yes Take by Unive rs COMPLEX 2-25 mouth. ity of ORAL 14:58: [address] traZODONE 2020-0 Yes 100mg Take 100 Uni vers 100 mg 2-25 mg by ity of tablet 14:58: mouth at [place] [address] bedtime. [facility] benztropine 2020-0 Yes 1mg Take 1 mg U nivers 1 mg tablet 2-25 by mouth ity of 14:58: daily. [address] VITAMIN B 2020-0 Yes Take by Unive rs COMPLEX 2-25 mouth. ity of ORAL 14:58: [address] traZODONE 2020-0 Yes 100mg Take 100 Uni vers 100 mg 2-25 mg by ity of tablet 14:58: mouth at [place] [address] bedtime. [facility] benztropine 2020-0 Yes 1mg Take 1 mg U nivers 1 mg tablet 2-25 by mouth ity of 14:58: daily. [address] VITAMIN B 2020-0 Yes Take by Unive rs COMPLEX 2-25 mouth. ity of ORAL 14:58: [address] traZODONE 2020-0 Yes 100mg Take 100 Uni vers 100 mg 2-25 mg by ity of tablet 14:58: mouth at [place] [address] bedtime. [facility] benztropine 2020-0 Yes 1mg Take 1 mg U nivers 1 mg tablet 2-25 by mouth ity of 14:58: daily. [address] VITAMIN B 2020-0 Yes Take by Unive rs COMPLEX 2-25 mouth. ity of ORAL 14:58: [address] traZODONE 2020-0 Yes 100mg Take 100 Uni vers 100 mg 2-25 mg by ity of tablet 14:58: mouth at [place] [address] bedtime. [facility] benztropine 2020-0 Yes 1mg Take 1 mg U nivers 1 mg tablet 2-25 by mouth ity of 14:58: daily. [place] 32 [facility] VITAMIN B 2020-0 Yes Take by Unive rs COMPLEX 2-25 mouth. ity of ORAL 14:58: [address] Branch traZODONE 2020-0 Yes 100mg Take 100 Uni vers 100 mg 2-25 mg by ity of tablet 14:58: mouth at [place] [address] bedtime. [facility] benztropine 2020-0 Yes 1mg Take 1 mg U nivers 1 mg tablet 2-25 by mouth ity of 14:58: daily. [address] VITAMIN B 2020-0 Yes Take by Unive rs COMPLEX 2-25 mouth. ity of ORAL 14:58: [address] Branch traZODONE 2020-0 Yes 100mg Take 100 Uni vers 100 mg 2-25 mg by ity of tablet 14:58: mouth at [place] [address] bedtime. [facility] benztropine 2020-0 Yes 1mg Take 1 mg U nivers 1 mg tablet 2-25 by mouth ity of 14:58: daily. [address] aripiprazol 2020-0 Yes 5mg Take 5 [...] 2-24 by mouth ity of 17:16: daily. [place] 05 [facility] ARIPiprazol 2020-0 Yes 10mg [...] 2-24 by mouth ity of 17:16: daily. [place] 05 [facility] ARIPiprazol 2020-0 Yes 10mg [...] by ity of tablet 17:15: mouth at [place] [address] bedtime. [facility] DULOXETINE 2020-0 Yes 60mg [...] 45 times Medical daily. Branch VITAMIN B 2019-0 Yes Take by Unive rs COMPLEX 2-24 mouth. ity of ORAL 17:15: [place] 45 [facility] traZODONE 2019-0 Yes 100mg Take 100 Uni vers 100 mg 2-24 mg by ity of tablet 17:15: mouth at [place] 45 bedtime. [facility] OLANZapine 2019-0 2020- [...] ity of capsule 17:15: 00:00 by mouth [place] 09 :00 daily. [facility] DULoxetine 2019-0 2020- No Take 3 Univ ers 30 mg 2-24 02-24 capsules ity of capsule 17:15: 00:00 by mouth [place] 09 :00 daily. [facility] DULoxetine 2019-0 2020- No Take 3 Univ ers 30 mg 2-24 02-24 capsules ity of capsule 17:15: 00:00 by mouth [place] 09 :00 daily. [facility] metoprolol 2020-0 Yes [id number] 50mg Take 1 Un nneka succinate 2-24 tablet by ity o f XL 50 mg 24 00:00: mouth [place] hr tablet 00 daily. [facility] metoprolol 2020-0 Yes [id number] 50mg Take 1 Un nneka succinate 2-24 tablet by ity o f XL 50 mg 24 00:00: mouth [place] hr tablet 00 daily. [facility] metoprolol 2020-0 Yes [id number] 50mg Take 1 Un nneka succinate 2-24 tablet by ity o f XL 50 mg 24 00:00: mouth [place] hr tablet 00 daily. [facility] metoprolol 2020-0 Yes [id number] 50mg Take 1 Un nneka succinate 2-24 tablet by ity o f XL 50 mg 24 00:00: mouth [place] hr tablet 00 daily. [facility] metoprolol 2020-0 Yes [id number] 50mg Take 1 Un nneka succinate 2-24 tablet by ity o f XL 50 mg 24 00:00: mouth [place] hr tablet 00 daily. [facility] metoprolol 2020-0 Yes [id number] 50mg Take 1 Un nneka succinate 2-24 tablet by ity o f XL 50 mg 24 00:00: mouth [place] hr tablet 00 daily. [facility] metoprolol 2020-0 Yes [id number] 50mg Take 1 Un nneka succinate 2-24 tablet by ity o f XL 50 mg 24 00:00: mouth [place] hr tablet 00 daily. [facility] metoprolol 2020-0 Yes [id number] 50mg Take 1 Un nneka succinate 2-24 tablet by ity o f XL 50 mg 24 00:00: mouth [place] hr tablet 00 daily. [facility] metoprolol 2020-0 Yes [id number] 50mg Take 1 Un nneka succinate 2-24 tablet by ity o f XL 50 mg 24 00:00: mouth [place] hr tablet 00 daily. [facility] metoprolol 2020-0 Yes [id number] 50mg Take 1 Un nneka succinate 2-24 tablet by ity o f XL 50 mg 24 00:00: mouth [place] hr tablet 00 daily. [facility] metoprolol 2020-0 2020- No [id number] 50mg Take 1 U nivers succinate 2-24 07-09 tablet by ity of XL 50 mg 24 00:00: 00:00 [place] hr tablet 00 :00 daily. [facility] metoprolol 2020-0 2020- No [id number] 50mg Take 1 U nivers succinate -23 03- tablet by ity of XL 50 mg 24 00:00: 00:00 mouth [place] hr tablet 00 :00 daily. [facility] metoprolol 0 2020- No [id number] 50mg Take 1 U nivers succinate 2-23 03- tablet by ity of XL 50 mg 24 00:00: 00:00 mouth [place] hr tablet 00 :00 daily. [facility] metoprolol 2019-0 2020- No [id number] 50mg Take 1 U nivers succinate 2-23 03- tablet by ity of XL 50 mg 24 00:00: 00:00 mouth [place] hr tablet 00 :00 daily. [facility] hydroCHLORO 2020-0 Yes [id number] 25mg Take 1 [facility] thiazide 25 1-30 tablet by ity of mg tablet 00:00: mouth [place] 00 daily. [facility] meloxicam 2019-0 Yes [id number] 15mg Take 1 U nivers 15 mg 1-30 tablet by ity of tablet 00:00: mouth [place] 00 daily. [facility] metoprolol 2019-0 Yes [id number] 25mg Take 1 Un nneka succinate 1-30 tablet by ity o f XL 25 mg 24 00:00: mouth [place] hr tablet 00 daily. [facility] pregabalin 2020-0 Yes [id number] 150mg Take 1 [facility] (LYRICA) 1-30 capsule by ity o f 150 mg 00:00: mouth 2 [place] capsule 00 (two) Medical times Branch daily. hydroCHLORO 2020-0 Yes [id number] 25mg Take 1 [facility] thiazide 25 1-30 tablet by ity of mg tablet 00:00: mouth [place] 00 daily. [facility] meloxicam 2020-0 Yes [id number] 15mg Take 1 U nivers 15 mg 1-30 tablet by ity of tablet 00:00: mouth [place] 00 daily. [facility] metoprolol 2020-0 Yes [id number] 25mg Take 1 Un nneka succinate 1-30 tablet by ity o f XL 25 mg 24 00:00: mouth [place] hr tablet 00 daily. [facility] pregabalin 2020-0 Yes [id number] 150mg Take 1 [facility] (LYRICA) 1-30 capsule by ity o f 150 mg 00:00: mouth 2 [place] capsule 00 (two) Medical times Branch daily. hydroCHLORO 2020-0 Yes [id number] 25mg Take 1 [facility] thiazide 25 1-30 tablet by ity of mg tablet 00:00: mouth [place] 00 daily. [facility] meloxicam 2020-0 Yes [id number] 15mg Take 1 U nivers 15 mg 1-30 tablet by ity of tablet 00:00: mouth [place] 00 daily. [facility] pregabalin 2020-0 Yes [id number] 150mg Take 1 [facility] (LYRICA) 1-30 capsule by ity o f 150 mg 00:00: mouth 2 [place] capsule 00 (two) Medical times Branch daily. hydroCHLORO 2020-0 Yes [id number] 25mg Take 1 [facility] thiazide 25 1-30 tablet by ity of mg tablet 00:00: mouth [place] 00 daily. [facility] meloxicam 2020-0 Yes [id number] 15mg Take 1 U nivers 15 mg 1-30 tablet by ity of tablet 00:00: mouth [place] 00 daily. [facility] pregabalin 2020-0 Yes [id number] 150mg Take 1 [facility] (LYRICA) 1-30 capsule by ity o f 150 mg 00:00: mouth 2 [place] capsule 00 (two) Medical times Branch daily. hydroCHLORO 2020-0 Yes [id number] 25mg Take 1 [facility] thiazide 25 1-30 tablet by ity of mg tablet 00:00: mouth [place] 00 daily. [facility] meloxicam 2020-0 Yes [id number] 15mg Take 1 U nivers 15 mg 1-30 tablet by ity of tablet 00:00: mouth [place] 00 daily. [facility] pregabalin 2020-0 Yes [id number] 150mg Take 1 [facility] (LYRICA) 1-30 capsule by ity o f 150 mg 00:00: mouth 2 [place] capsule 00 (two) Medical times Branch daily. hydroCHLORO 2020-0 Yes [id number] 25mg Take 1 [facility] thiazide 25 1-30 tablet by ity of mg tablet 00:00: mouth [place] 00 daily. [facility] meloxicam 2020-0 Yes [id number] 15mg Take 1 U nivers 15 mg 1-30 tablet by ity of tablet 00:00: mouth [place] 00 daily. [facility] pregabalin 2020-0 Yes [id number] 150mg Take 1 [facility] (LYRICA) 1-30 capsule by ity o f 150 mg 00:00: mouth 2 [place] capsule 00 (two) Medical times Branch daily. hydroCHLORO 2020-0 Yes [id number] 25mg Take 1 [facility] thiazide 25 1-30 tablet by ity of mg tablet 00:00: mouth [place] 00 daily. [facility] Branch meloxicam 2020-0 Yes [id number] 15mg Take 1 U nivers 15 mg 1-30 tablet by ity of tablet 00:00: mouth [place] 00 daily. [facility] pregabalin 2020-0 Yes [id number] 150mg Take 1 [facility] (LYRICA) 1-30 capsule by ity o f 150 mg 00:00: mouth 2 [place] capsule 00 (two) Medical times Branch daily. hydroCHLORO 2020-0 Yes [id number] 25mg Take 1 [facility] thiazide 25 1-30 tablet by ity of mg tablet 00:00: mouth [place] 00 daily. [facility] meloxicam 2020-0 Yes [id number] 15mg Take 1 U nivers 15 mg 1-30 tablet by ity of tablet 00:00: mouth [place] 00 daily. [facility] pregabalin 2020-0 Yes [id number] 150mg Take 1 [facility] (LYRICA) 1-30 capsule by ity o f 150 mg 00:00: mouth 2 [place] capsule 00 (two) Medical times Branch daily. hydroCHLORO 2020-0 Yes [id number] 25mg Take 1 [facility] thiazide 25 1-30 tablet by ity of mg tablet 00:00: mouth [place] 00 daily. [facility] meloxicam 2020-0 Yes [id number] 15mg Take 1 U nivers 15 mg 1-30 tablet by ity of tablet 00:00: mouth [place] 00 daily. [facility] pregabalin 2020-0 Yes [id number] 150mg Take 1 [facility] (LYRICA) 1-30 capsule by ity o f 150 mg 00:00: mouth 2 [place] capsule 00 (two) Medical times Branch daily. hydroCHLORO 2020-0 Yes [id number] 25mg Take 1 [facility] thiazide 25 1-30 tablet by ity of mg tablet 00:00: mouth [place] 00 daily. [facility] meloxicam 2020-0 Yes [id number] 15mg Take 1 U nivers 15 mg 1-30 tablet by ity of tablet 00:00: mouth [place] 00 daily. [facility] pregabalin 2020-0 Yes [id number] 150mg Take 1 [facility] (LYRICA) 1-30 capsule by ity o f 150 mg 00:00: mouth 2 [place] capsule 00 (two) Medical times Branch daily. hydroCHLORO 2020-0 Yes [id number] 25mg Take 1 [facility] thiazide 25 1-30 tablet by ity of mg tablet 00:00: mouth [place] 00 daily. [facility] meloxicam 2020-0 Yes [id number] 15mg Take 1 U nivers 15 mg 1-30 tablet by ity of tablet 00:00: mouth [place] 00 daily. [facility] pregabalin 2020-0 Yes [id number] 150mg Take 1 [facility] (LYRICA) 1-30 capsule by ity o f 150 mg 00:00: mouth 2 [place] capsule 00 (two) Medical times Branch daily. hydroCHLORO 2020-0 Yes [id number] 25mg Take 1 [facility] thiazide 25 1-30 tablet by ity of mg tablet 00:00: mouth [place] 00 daily. [facility] meloxicam 2020-0 Yes [id number] 15mg Take 1 U nivers 15 mg 1-30 tablet by ity of tablet 00:00: mouth [place] 00 daily. [facility] Branch pregabalin 2020-0 Yes [id number] 150mg Take 1 [facility] (LYRICA) 1-30 capsule by ity o f 150 mg 00:00: mouth 2 [place] capsule 00 (two) Medical times Branch daily. meloxicam 2020-0 Yes [id number] 15mg Take 1 U nivers 15 mg 1-30 tablet by ity of tablet 00:00: mouth [place] 00 daily. [facility] Branch pregabalin 2020-0 Yes [id number] 150mg Take 1 [facility] (LYRICA) 1-30 capsule by ity o f 150 mg 00:00: mouth 2 [place] capsule 00 (two) Medical times Branch daily. meloxicam 2020-0 Yes [id number] 15mg Take 1 U nivers 15 mg 1-30 tablet by ity of tablet 00:00: mouth [place] 00 daily. [facility] Branch pregabalin 2020-0 Yes [id number] 150mg Take 1 [facility] (LYRICA) 1-30 capsule by ity o f 150 mg 00:00: mouth 2 [place] capsule 00 (two) Medical times Branch daily. meloxicam 2020-0 Yes [id number] 15mg Take 1 U nivers 15 mg 1-30 tablet by ity of tablet 00:00: mouth [place] 00 daily. [facility] Branch pregabalin 2020-0 Yes [id number] 150mg Take 1 [facility] (LYRICA) 1-30 capsule by ity o f 150 mg 00:00: mouth 2 [place] capsule 00 (two) Medical times Branch daily. meloxicam 2020-0 Yes [id number] 15mg Take 1 U nivers 15 mg 1-30 tablet by ity of tablet 00:00: mouth [place] 00 daily. [facility] Branch pregabalin 2020-0 Yes [id number] 150mg Take 1 [facility] (LYRICA) 1-30 capsule by ity o f 150 mg 00:00: mouth 2 [place] capsule 00 (two) Medical times Branch daily. meloxicam 2020-0 Yes [id number] 15mg Take 1 U nivers 15 mg 1-30 tablet by ity of tablet 00:00: mouth [place] 00 daily. [facility] Branch pregabalin 2020-0 Yes [id number] 150mg Take 1 [facility] (LYRICA) 1-30 capsule by ity o f 150 mg 00:00: mouth 2 [place] capsule 00 (two) Medical times Branch daily. meloxicam 2020-0 Yes [id number] 15mg Take 1 U nivers 15 mg 1-30 tablet by ity of tablet 00:00: mouth [place] 00 daily. [facility] Branch pregabalin 2020-0 Yes [id number] 150mg Take 1 [facility] (LYRICA) 1-30 capsule by ity o f 150 mg 00:00: mouth 2 [place] capsule 00 (two) Medical times Branch daily. meloxicam 2020-0 Yes [id number] 15mg Take 1 U nivers 15 mg 1-30 tablet by ity of tablet 00:00: mouth [place] 00 daily. Medical Branch pregabalin 2020-0 Yes [id number] 150mg Take 1 [facility] (LYRICA) 1-30 capsule by ity o f 150 mg 00:00: mouth 2 [place] capsule 00 (two) Medical times Branch daily. meloxicam 2020-0 Yes [id number] 15mg Take 1 U nivers 15 mg 1-30 tablet by ity of tablet 00:00: mouth [place] 00 daily. [facility] Branch pregabalin 2020-0 Yes [id number] 150mg Take 1 [facility] (LYRICA) 1-30 capsule by ity o f 150 mg 00:00: mouth 2 [place] capsule 00 (two) Medical times Branch daily. meloxicam 2020-0 Yes [id number] 15mg Take 1 U nivers 15 mg 1-30 tablet by ity of tablet 00:00: mouth [place] 00 daily. [facility] pregabalin 2020-0 Yes [id number] 150mg Take 1 [facility] (LYRICA) 1-30 capsule by ity o f 150 mg 00:00: mouth 2 [place] capsule 00 (two) Medical times Branch daily. meloxicam 2020-0 Yes [id number] 15mg Take 1 U nivers 15 mg 1-30 tablet by ity of tablet 00:00: mouth [place] 00 daily. [facility] pregabalin 2020-0 Yes [id number] 150mg Take 1 [facility] (LYRICA) 1-30 capsule by ity o f 150 mg 00:00: mouth 2 [place] capsule 00 (two) Medical times Branch daily. meloxicam 2020-0 Yes [id number] 15mg Take 1 U nivers 15 mg 1-30 tablet by ity of tablet 00:00: mouth [place] 00 daily. [facility] Branch pregabalin 2020-0 Yes [id number] 150mg Take 1 [facility] (LYRICA) 1-30 capsule by ity o f 150 mg 00:00: mouth 2 [place] capsule 00 (two) Medical times Branch daily. meloxicam 2020-0 Yes [id number] 15mg Take 1 U nivers 15 mg 1-30 tablet by ity of tablet 00:00: mouth [place] 00 daily. [facility] Branch pregabalin 2020-0 Yes [id number] 150mg Take 1 [facility] (LYRICA) 1-30 capsule by ity o f 150 mg 00:00: mouth 2 [place] capsule 00 (two) Medical times Branch daily. meloxicam 2020-0 Yes [id number] 15mg Take 1 U nivers 15 mg 1-30 tablet by ity of tablet 00:00: mouth [place] 00 daily. [facility] Branch pregabalin 2020-0 Yes [id number] 150mg Take 1 [facility] (LYRICA) 1-30 capsule by ity o f 150 mg 00:00: mouth 2 [place] capsule 00 (two) Medical times Branch daily. meloxicam 2020-0 Yes [id number] 15mg Take 1 U nivers 15 mg 1-30 tablet by ity of tablet 00:00: mouth [place] 00 daily. [facility] Branch pregabalin 2020-0 Yes [id number] 150mg Take 1 [facility] (LYRICA) 1-30 capsule by ity o f 150 mg 00:00: mouth 2 [place] capsule 00 (two) Medical times Branch daily. meloxicam 2020-0 Yes [id number] 15mg Take 1 U nivers 15 mg 1-30 tablet by ity of tablet 00:00: mouth [place] 00 daily. [facility] Branch pregabalin 2020-0 Yes [id number] 150mg Take 1 [facility] (LYRICA) 1-30 capsule by ity o f 150 mg 00:00: mouth 2 [place] capsule 00 (two) Medical times Branch daily. meloxicam 2020-0 Yes [id number] 15mg Take 1 U nivers 15 mg 1-30 tablet by ity of tablet 00:00: mouth [place] 00 daily. Medical Branch pregabalin 2020-0 Yes [id number] 150mg Take 1 [facility] (LYRICA) 1-30 capsule by ity o f 150 mg 00:00: mouth 2 [place] capsule 00 (two) Medical times Branch daily. meloxicam 2020-0 Yes [id number] 15mg Take 1 U nivers 15 mg 1-30 tablet by ity of tablet 00:00: mouth [place] 00 daily. Medical Branch pregabalin 2020-0 Yes [id number] 150mg Take 1 [facility] (LYRICA) 1-30 capsule by ity o f 150 mg 00:00: mouth 2 [place] capsule 00 (two) Medical times Branch daily. meloxicam 2020-0 Yes [id number] 15mg Take 1 U nivers 15 mg 1-30 tablet by ity of tablet 00:00: mouth [place] 00 daily. Medical Branch meloxicam 2020-0 Yes [id number] 15mg Take 1 U nivers 15 mg 1-30 tablet by ity of tablet 00:00: mouth [place] 00 daily. Medical Branch meloxicam 2020-0 Yes [id number] 15mg Take 1 U nivers 15 mg 1-30 tablet by ity of tablet 00:00: mouth [place] 00 daily. [facility] Branch meloxicam 2020-0 Yes [id number] 15mg Take 1 U nivers 15 mg 1-30 tablet by ity of tablet 00:00: mouth [place] 00 daily. [facility] Branch meloxicam 2020-0 Yes [id number] 15mg Take 1 U nivers 15 mg 1-30 tablet by ity of tablet 00:00: mouth [place] 00 daily. [facility] Branch meloxicam 2019-0 Yes [id number] 15mg Take 1 U nivers 15 mg 1-30 tablet by ity of tablet 00:00: mouth [place] 00 daily. Medical Branch meloxicam 2019-0 Yes [id number] 15mg Take 1 U nivers 15 mg 1-30 tablet by ity of tablet 00:00: mouth [place] 00 daily. Medical Branch meloxicam 2019-0 Yes [id number] 15mg Take 1 U nivers 15 mg 1-30 tablet by ity of tablet 00:00: mouth [place] 00 daily. Medical Branch pregabalin 2019- No [id number] 150mg Take 1 [facility] (LYRICA) -30 12-21 capsule by ity of 150 mg 00:00: 00:00 mouth 2 [place] capsule 00 :00 (two) Medical times Branch daily. hydroCHLORO 2019-2019- No [id number] 25mg Take 1 [facility] thiazide 25 -30 07-09 tablet by it y of mg tablet 00:00: 00:00 mouth [place] 00 :00 daily. Medical Branch hydroCHLORO 2019-2019- No [id number] 25mg Take 1 [facility] thiazide 25 -30 07-09 tablet by it y of mg tablet 00:00: 00:00 mouth [place] 00 :00 daily. Medical Branch hydroCHLORO 2019- 2020- No [id number] 25mg Take 1 [facility] thiazide 25 -30 07-09 tablet by it y of mg tablet 00:00: 00:00 mouth [place] 00 :00 daily. Medical Branch hydroCHLORO 2019-2019- No [id number] 25mg Take 1 [facility] thiazide 25 -30 07-09 tablet by it y of mg tablet 00:00: 00:00 mouth [place] 00 :00 daily. Medical Branch metoprolol 2019- 2020- No [id number] 25mg Take 1 U nivers succinate 1-30 02-24 tablet by ity of XL 25 mg 24 00:00: 00:00 mouth [place] hr tablet 00 :00 daily. [facility] metoprolol 2019- 2020- No [id number] 25mg Take 1 U nivers succinate 1-30 02-24 tablet by ity of XL 25 mg 24 00:00: 00:00 mouth [place] hr tablet 00 :00 daily. [facility] Branch metoprolol 2020- No [id number] 25mg Take 1 U nivers succinate 1-30 [...] COMPLEX 0-31 mouth. ity of ORAL 17:11: [address] Branch traZODONE 2018-08 Yes 100mg Take 100 Uni vers 100 mg 0-31 mg by ity of tablet 17:11: mouth at [place] [address] bedtime. Medical Branch VITAMIN B 2018-08 Yes Take by Unive rs COMPLEX 0-31 mouth. ity of ORAL 17:11: [address] Branch traZODONE 2018-08 Yes 100mg Take 100 Uni vers 100 mg 0-31 mg by ity of tablet 17:11: mouth at [place] [address] bedtime. Medical Branch VITAMIN B 2018-08 Yes Take by Unive rs COMPLEX 0-31 mouth. ity of ORAL 17:11: [place] [address] Medical Branch traZODONE 2018-08 Yes 100mg Take 100 Uni vers 100 mg 0-31 mg by ity of tablet 17:11: mouth at [place] [address] bedtime. Medical Branch VITAMIN B 2018-08 Yes Take by Unive rs COMPLEX 0-31 mouth. ity of ORAL 17:11: [address] Branch traZODONE 2018-08 Yes 100mg Take 100 Uni vers 100 mg 0-31 mg by ity of tablet 17:11: mouth at [place] 25 bedtime. Medical Branch traZODONE 0 Yes 100mg Take 100 Uni vers 100 mg 8-29 mg by ity of tablet 19:24: mouth at [place] [address] bedtime. Medical Branch traZODONE 0 Yes 100mg Take 100 Uni vers 100 mg 8-29 mg by ity of tablet 19:24: mouth at [place] [address] bedtime. Medical Branch traZODONE 0 Yes 100mg Take 100 Uni vers 100 mg 8-29 mg by ity of tablet 19:24: mouth at [place] [address] bedtime. Medical Branch traZODONE 0 Yes 100mg Take 100 Uni vers 100 mg 8-29 mg by ity of tablet 19:24: mouth at [place] [address] bedtime. Medical Branch traZODONE Yes 100mg Take 100 Uni vers 100 mg 8-29 mg by ity of tablet 19:24: mouth at [place] [address] bedtime. Medical Branch traZODONE Yes 100mg Take 100 Uni vers 100 mg 8-29 mg by ity of tablet 19:24: mouth at [place] [address] bedtime. Medical Branch benztropine Yes 1mg Take 1 mg U nivers 1 mg tablet 8-29 by mouth ity of 14:39: daily. [place] [address] Medical Branch ARIPiprazol Yes 10mg Take 10 [...] mouth ity of 14:39: daily. [place] 21 Medical Branch ARIPiprazol 0 Yes 10mg [...] 14:39: daily. [place] [facility] Branch ARIPiprazol 0 Yes 10mg Take [...] 14:39: daily. [place] [facility] Branch ARIPiprazol 2018-0 Yes 10mg Take 10 mg Univers e [...] 14:39: daily. [place] [facility] Branch ARIPiprazol 0 Yes 10mg Take [...] 21 times Medical daily. Branch metoprolol Yes [id number] 25mg Take 1 Un nneka succinate 8-29 tablet by ity o f XL 25 mg 24 00:00: mouth [place] hr tablet 00 daily. Medical Branch hydroCHLORO Yes [id number] 25mg Take 1 [facility] thiazide 25 8-29 tablet by ity of mg tablet 00:00: mouth [place] 00 daily. Medical Branch meloxicam Yes [id number] 15mg Take 1 U nivers 15 mg 8-29 tablet by ity of tablet 00:00: mouth [place] 00 daily. Medical Branch metoprolol Yes [id number] 25mg Take 1 Un nneka succinate 8-29 tablet by ity o f XL 25 mg 24 00:00: mouth [place] hr tablet 00 daily. Medical Branch hydroCHLORO Yes [id number] 25mg Take 1 [facility] thiazide 25 8-29 tablet by ity of mg tablet 00:00: mouth [place] 00 daily. Medical Branch meloxicam 2019-0 Yes [id number] 15mg Take 1 U nivers 15 mg 8-29 tablet by ity of tablet 00:00: mouth [place] 00 daily. Medical Branch metoprolol 20190 Yes [id number] 25mg Take 1 Un nneka succinate 8-29 tablet by ity o f XL 25 mg 24 00:00: mouth [place] hr tablet 00 daily. Medical Branch hydroCHLORO 2019-0 Yes [id number] 25mg Take 1 [facility] thiazide 25 8-29 tablet by ity of mg tablet 00:00: mouth [place] 00 daily. Medical Branch meloxicam 0 Yes [id number] 15mg Take 1 U nivers 15 mg 8-29 tablet by ity of tablet 00:00: mouth [place] 00 daily. Medical Branch metoprolol Yes [id number] 25mg Take 1 Un nneka succinate 8-29 tablet by ity o f XL 25 mg 24 00:00: mouth [place] hr tablet 00 daily. Medical Branch hydroCHLORO 0 Yes [id number] 25mg Take 1 [facility] thiazide 25 8-29 tablet by ity of mg tablet 00:00: mouth [place] 00 daily. Medical Branch meloxicam Yes [id number] 15mg Take 1 U nivers 15 mg 8-29 tablet by ity of tablet 00:00: mouth [place] 00 daily. Medical Branch metoprolol 0 Yes [id number] 25mg Take 1 Un nneka succinate 8-29 tablet by ity o f XL 25 mg 24 00:00: mouth [place] hr tablet 00 daily. Medical Branch hydroCHLORO 2018-0 Yes [id number] 25mg Take 1 [facility] thiazide 25 8-29 tablet by ity of mg tablet 00:00: mouth [place] 00 daily. Medical Branch meloxicam 0 Yes [id number] 15mg Take 1 U nivers 15 mg 8-29 tablet by ity of tablet 00:00: mouth [place] 00 daily. Medical Branch metoprolol 20190 Yes [id number] 25mg Take 1 Un nneka succinate 8-29 tablet by ity o f XL 25 mg 24 00:00: mouth [place] hr tablet 00 daily. Medical Branch hydroCHLORO 2018-0 Yes [id number] 25mg Take 1 [facility] thiazide 25 8-29 tablet by ity of mg tablet 00:00: mouth [place] 00 daily. Medical Branch meloxicam Yes [id number] 15mg Take 1 U nivers 15 mg 8-29 tablet by ity of tablet 00:00: mouth [place] 00 daily. [facility] Branch metoprolol Yes [id number] 25mg Take 1 Un nneka succinate 8-29 tablet by ity o f XL 25 mg 24 00:00: mouth [place] hr tablet 00 daily. Medical Branch hydroCHLORO Yes [id number] 25mg Take 1 [facility] thiazide 25 8-29 tablet by ity of mg tablet 00:00: mouth [place] 00 daily. [facility] Branch meloxicam Yes [id number] 15mg Take 1 U nivers 15 mg 8-29 tablet by ity of tablet 00:00: mouth [place] 00 daily. [facility] Branch metoprolol 2020- No [id number] 25mg Take 1 U nivers succinate 8-28 09-30 tablet by ity of XL 25 mg 24 00:00: 00:00 mouth [place] hr tablet 00 :00 daily. [facility] Branch hydroCHLORO 2020- No [id number] 25mg Take 1 [facility] thiazide 25 -28 09-30 tablet by it y of mg tablet 00:00: 00:00 mouth [place] 00 :00 daily. [facility] meloxicam 2020- No [id number] 15mg Take 1 [facility] 15 mg 8-28 09-30 tablet by ity of tablet 00:00: 00:00 mouth [place] 00 :00 daily. [facility] [facility] metoprolol 2020- No [id number] 25mg Take 1 U nivers succinate 8-28 09-30 tablet by ity of XL 25 mg 24 [place] daily. [facility] hydroCHLORO 2020- No [id number] 25mg Take 1 Univers thiazide 25 -28 09-30 tablet by it y of mg tablet 00:00: 00:00 mouth [place] 00 :00 daily. [facility] meloxicam 2020- No [id number] 15mg Take 1 Univers 15 mg 8-28 09-30 tablet by ity of tablet 00:00: 00:00 mouth [place] 00 :00 daily. [facility] Dose 2018-0 No Unknown 7- 00:00: 00 Dose 2018-0 No Unknown 7- 00:00: 00 Dose 2019-0 No Unknown 7-30 00:00: 00 Dose 2019-0 No Unknown 7-30 00:00: 00 Dose 2019-0 No Unknown 7-30 00:00: 00 Dose 2019-0 No Unknown 7-30 00:00: 00 METOPROLOL 2019- No [id number] TAKE 1 U nivers SUCCINATE 7-06 07-29 TABLET BY ity of XL 25 mg 24 00:00: [place] 00 :00 EVERY DAY [facility] METOPROLOL 2019- No [id number] TAKE 1 U nivers SUCCINATE 7-06 07-29 TABLET BY ity of XL 25 mg 24 00:00[place] 00 :00 EVERY DAY [facility] al [facility] hydroCHLORO 2019- No [id number] 25mg Take 1 Univers thiazide 25 -30 - tablet by it y of mg tablet 00:00: 00:00 mouth [place] 00 :00 daily. [facility] meloxicam 2019- No [id number] 7.5mg Take 1 Univers (MOBIC) 7.5 -30 -29 tablet by it y of mg tablet 00:00: 00:00 mouth [place] 00 :00 daily. [facility] hydroCHLORO 2019- No [id number] 25mg Take 1 Univers thiazide 25 -30 -29 tablet by it y of mg tablet 00:00: 00:00 mouth [place] 00 :00 daily. [facility] meloxicam 2019- No [id number] 7.5mg Take 1 Univers (MOBIC) 7.5 -30 [...] COMPLEX 3-28 mouth. ity of ORAL 16:11: [place] 47 [facility] VITAMIN B 2019-0 Yes Take by Unive rs COMPLEX 3-28 mouth. ity of ORAL 16:11: [address] VITAMIN B Yes Take by Unive rs COMPLEX 3-28 mouth. ity of ORAL 16:11: [address] VITAMIN B Yes Take by Unive rs COMPLEX 3-28 mouth. ity of ORAL 16:11: [address] VITAMIN B Yes Take by Unive rs COMPLEX 3-28 mouth. ity of ORAL 16:11: [address] VITAMIN B Yes Take by Unive rs COMPLEX 3-28 mouth. ity of ORAL 16:11: [address] amlodipine 0 No 1mg 5 mg tablet [...] 8-15 tablet 00:00: 00 cyclobenzap 2018-0 Yes [id number] Bid prn Univers rine 10 mg 8-02 ity of tablet 00:00: [address] Branch cyclobenzap 2018-0 Yes [id number] Bid prn Univers rine 10 mg 8-02 ity of tablet 00:00: [address] Branch cyclobenzap 2018-0 Yes [id number] Bid prn Univers rine 10 mg 8-02 ity of tablet 00:00: [address] Branch cyclobenzap 2018-0 Yes [id number] Bid prn Univers rine 10 mg 8-02 ity of tablet 00:00: [address] Branch cyclobenzap 2018-0 Yes [id number] Bid prn Univers rine 10 mg 8-02 ity of tablet 00:00: [address] Branch cyclobenzap 2018-0 Yes [id number] Bid prn Univers rine 10 mg 8-02 ity of tablet 00:00: [address] Branch cyclobenzap 2018-0 Yes [id number] Bid prn Univers rine 10 mg 8-02 ity of tablet 00:00: [address] Branch cyclobenzap 2018-0 Yes [id number] Bid prn Univers rine 10 mg 8-02 ity of tablet 00:00: [place] 00 [facility] cyclobenzap 2018-0 Yes [id number] Bid prn Univers rine 10 mg 8-02 ity of tablet 00:00: [place] 00 [facility] cyclobenzap 2018-0 Yes [id number] Bid prn Univers rine 10 mg 8- ity of tablet 00:00: [place] 00 [facility] cyclobenzap 2018-0 2020- No [id number] Bid prn Univers rine 10 mg 8-10 02-24 ity of tablet 00:00: 00:00 [place] 00 :00 Medical [facility] cyclobenzap 2018-0 2020- No [id number] Bid prn Univers rine 10 mg 8-24 ity of tablet 00:00: 00:00 [place] 00 :00 Medical [facility] cyclobenzap 2018-0 2020- No [id number] Bid prn Univers rine 10 mg 8-10-24 ity of tablet 00:00: 00:00 [place] [...] 5-19 capsule 00:00: 00 DULoxetine 2016-0 Yes [id number] Emanuel sey HCl 30 MG 3-16 Seybold oral 00:00: - Capsule 00 Externa Delayed l Release Sprinkle hydrOXYzine 2016-0 Yes [id number] Ke lsey HCl 25 MG 3-16 Seybold oral Tablet 00:00: - 00 Externa l DULoxetine 2016-0 Yes [id number] Emanuel sey HCl 30 MG 3-16 Seybold oral 00:00: - Capsule 00 Externa Delayed l Release Sprinkle hydrOXYzine 2016-0 Yes [id number] Ke lsey HCl 25 MG 3-16 Seybold oral Tablet 00:00: - 00 Externa l DULoxetine 2016-0 Yes Jelena HCl 30 MG 3-16 Seybold oral 00:00: - Capsule 00 Externa Delayed l Release Sprinkle hydrOXYzine 2016-0 Yes Jelena HCl 25 MG 3-16 Seybold oral Tablet 00:00: - 00 Externa l DULoxetine 2016-0 Yes [id number] Emanuel sey HCl 30 MG 3-16 Seybold oral 00:00: - Capsule 00 Externa Delayed l Release Sprinkle hydrOXYzine 2016-0 Yes [id number] Ke lsey HCl 25 MG 3-16 Seybold oral Tablet 00:00: - 00 Externa l DULoxetine 2016-0 Yes [id number] Emanuel sey HCl 30 MG 3-16 Seybold oral 00:00: - Capsule 00 Externa Delayed l Release Sprinkle hydrOXYzine 2016-0 Yes [id number] Ke lsey HCl 25 MG 3-16 Seybold oral Tablet 00:00: - 00 Externa l DULoxetine 2016-0 Yes [id number] Emanuel sey HCl 30 MG 3-16 Seybold oral 00:00: - Capsule 00 Externa Delayed l Release Sprinkle hydrOXYzine 2015-0 Yes [id number] Ke lsey HCl 25 MG 3-16 Seybold oral Tablet 00:00: - 00 Externa l DULoxetine 2015-0 2023- No [id number] Ke lsey HCl 30 MG 3-16 04-24 Seybold oral 00:00: 00:00 - Capsule 00 :00 Externa Delayed l Release Sprinkle hydrOXYzine 0 3- No [id number] K elsey HCl 25 MG 3-16 04-24 [...] MODERNA COVID-19 BIVALENT 2022-08-28 Completed Jelena Ibrahim BOOSTER VACCINE 00:00:00 - Externa l MODERNA COVID-19 BIVALENT 2022-08-28 Completed Jelena Guevaratiffanymarcel VACCINE MODERNA 00:00:00 - Externa l Moderna [...] Protein, Pf Pneumococcal Vaccine, 2019-04-29 Completed Emanuel woodard Seybold [...] Jelena S eybold Adacel) 00:00:00 - External Hepatitis A 2009-04-17 Completed [...] Completed Jelena S eybold 00:00:00 - External HPV 4 (Human 2008-04-14 [...] Completed Jelena Seyb old Mcv4,unspecified 00:00:00 - 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 Hepatitis A 2008-02-18 Completed Jelena Seybol d 00:00:00 - External HPV 4 (Human 2008-02-18 Completed Jelena Seybo ld Papillomavirus) 00:00:00 - Externa l Meningococcal 2008-02-18 Completed Jelena Seyb old Mcv4,unspecified 00:00:00 - 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 Hepatitis A 2008-02-18 Completed Jelena Seybol d 00:00:00 - External HPV 4 (Human 2008-02-18 Completed Jelena Seybo ld Papillomavirus) 00:00:00 - Externa l Meningococcal 2008-02-18 Completed Jelena Seyb old Mcv4,unspecified 00:00:00 - 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 Hepatitis A 2008-02-18 Completed Jelena Seybol d 00:00:00 - External Hepatitis A 2008-02-18 Completed Jelena Seybol d 00:00:00 - External HPV 4 (Human 2008-02-18 Completed Jelena Seybo ld Papillomavirus) 00:00:00 - Externa l Meningococcal 2008-02-18 Completed Jelena Seyb old Mcv4,unspecified 00:00:00 - 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 Hepatitis A 2008-02-18 Completed Jelena Seybol d 00:00:00 - External HPV 4 (Human 2008-02-18 Completed Jelena Seybo ld Papillomavirus) 00:00:00 - Externa l Meningococcal 2008-02-18 Completed Jelena Seyb old Mcv4,unspecified 00:00:00 - 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 HPV 4 (Human 2008-02-18 Completed Jelena Seybo ld Papillomavirus) 00:00:00 - Externa l Meningococcal 2008-02-18 Completed Jelena Seyb old Mcv4,unspecified 00:00:00 - 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 Hepatitis A 2008-02-18 Completed Jelena Seybol d 00:00:00 - External HPV 4 (Human 2008-02-18 Completed Jelena Seybo ld Papillomavirus) 00:00:00 - Externa l Meningococcal 2008-02-18 Completed Jelena Seyb old Mcv4,unspecified 00:00:00 - 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 Hepatitis A 2008-02-18 Completed Jelena Seybol d 00:00:00 - External HPV 4 (Human 2008-02-18 Completed Jelena Seybo ld Papillomavirus) 00:00:00 - Externa l Meningococcal 2008-02-18 Completed Jelena Seyb old Mcv4,unspecified 00:00:00 - 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 Hepatitis A 2008-02-18 Completed Jelena Seybol d 00:00:00 - External HPV 4 (Human 2008-02-18 Completed Jelena Seybo ld Papillomavirus) 00:00:00 - Externa l Meningococcal 2008-02-18 Completed Jelena Seyb old Mcv4,unspecified 00:00:00 - 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 Td (adult), 2 2006-05-25 Completed [...] Exter nal HIB- Haemophilus 1997-05-31 Completed Jelena Umñaa eybold Influenzae Type B 00:00:00 - Exter [...] E xternal rtussis DTP- 1993 Completed Jelena Ibraihm Diphtheria,Tetanus,Pe 00:00:00 - E xternal rtussis OPV- [...] Exter nal HIB- Haemophilus 1993 Completed Jelena Umaañ eybold Influenzae Type B 00:00:00 - Exter nal HIB- Haemophilus 1993 Completed Jelena Umaña eybold Influenzae Type B 00:00:00 - Exter nal HIB- Haemophilus 1993 Completed Jelena Umaña eybold Influenzae Type B 00:00:00 - Exter nal HIB- Haemophilus 1993 Completed Jelena Umaña eybold Influenzae Type B 00:00:00 - Exter nal Hepatitis B, 1993 Completed Jelena Eatono ld [...] Systolic blood 2023-01-28 15:56:00 144 mm[Hg] Jelena ybold - pressure External Diastolic blood 2023-01-28 15:56:00 92 mm[Hg] Beth booth Seybold - pressure External Heart rate 2023-01-28 15:56:00 80 /min Ejlena S alyssabold - External Respiratory rate 2023-01-28 15:56:00 16 /min Ashlie shah Seybold - External Systolic blood 2022-12-29 14:50:00 149 mm[Hg] Jelena Guevaraybold - pressure External Diastolic blood 2022-12-29 14:50:00 90 mm[Hg] Beth booth Seybold - pressure External Heart rate 2022-12-29 14:50:00 78 /min Jelena Leeroy shahbold - External Body temperature 2022-12-29 14:50:00 37.39 Mera Ashlie shah Seybold - External Respiratory rate 2022-12-29 14:50:00 15 /min Ashlie alyssa Seybold - External Body height 2022-12-29 14:50:00 160 cm Jelenalit shahbold - External Body weight 2022-12-29 14:50:00 [...] Heart rate 2022-09-09 14:45:00 84 /min Jelena shahbold - External Body temperature 2022-09-09 14:45:00 36.78 Mera Ashlie Ibrahim - External Respiratory rate 2022-09-09 14:45:00 14 /min Ashlie Ibrahim - External Body height 2022-09-09 14:45:00 160 cm Jelena shahbold - External Body weight 2022-09-09 14:45:00 128.822 [...] 2020-08-02 16:44:00 20 /min [facility] Body height 2020-08-02 16:44:00 160 cm [...] 2020-03-08 15:04:00 74 /min [facility] [place] [facility] Body temperature 2020-03-08 15:04:00 36.61 [...] University of Arterial blood by [place] [facility] nereida Pulse oximetry Branch Systolic blood 2019-10-24 [...] 99 /min University of Arterial blood by [facility] nereida Pulse oximetry Branch Systolic blood 2019-09-29 16:38:00 93 mm[Hg] Univer sity of pressure [place] [facility] Diastolic blood 2019-09-29 16:38:00 64 mm[Hg] Unive rsity of pressure [place] [facility] Heart rate 2019-09-29 16:38:00 77 /min [facility]i ty [facility] [place] [facility] Body temperature 2019-09-29 16:38:00 36.5 Mera [facility] Res[facility] rate 2019-09-29 16:38:00 20 /min [facility] Body height 2019-09-29 16:38:00 160 cm [facility] [place] [facility] Body weight 2019-09-29 16:38:00 109.77 kg Universi ty [facility] BMI 2019-09-29 16:38:00 42.87 kg/m2 Universi ty [facility] Systolic blood 2019-04-28 14:39:00 105 mm[Hg] Univer sity of pressure [facility] Diastolic blood 2019-04-28 14:39:00 62 mm[Hg] Unive rsity of pressure [facility] Heart rate 2019-04-28 14:39:00 87 /min Universi ty [facility] Body temperature 2019-04-28 14:39:00 36.94 Mera [facility] Respiratory rate 2019-04-28 14:39:00 18 /min [facility] Body height 2019-04-28 14:39:00 160 cm Universi ty [facility] Body weight 2019-04-28 14:39:00 123.832 kg Universi ty [facility] BMI 2019-04-28 14:39:00 48.36 kg/m2 Universi ty [facility] BP Systolic 2022-09-10 11:46:00 168 [...] Clinician Source Performed REFERRAL- 2020-09-27 06:01:00 Doctor Verdugo, [facility] REQUEST/RESPONSE [facility] MR KNEE LEFT WO CONTRAST 2020-08-20 18:12:04 Alexandre Delgado [facility] NOTICE OF PRIVACY 2020-08-02 06:01:00 Doctor Verdugo, [facility] PRACTICES [facility] AGREEMENTS AUTHORIZATIONS 2020-08-02 06:01:00 Doctor Verdugo, [facility] AND IRREVOCABLE [facility] ASSIGNMENTS (FORM 2001) VACCINATIONS - CONSENTS, 2020-05-17 05:01:00 Doctor Verdugo [facility] ELIGIBILITY, HISTORY [facility] XR KNEE 3 VW LEFT 2020-03-16 13:13:36 Alexandre Delgado [facility] SCANNED LAB RESULTS 2020-03-08 05:01:00 Doctor Verdugo [facility] ASSIGNMENT OF BENEFITS 2020-02-10 13:57:41 [facility] - PRESCRIPTION / 2019-09-08 06:01:00 Doctor Verdugo [facility] ORDER [facility] AGREEMENTS AUTHORIZATIONS 2019-04-28 05:01:00 Doctor Verdugo, [facility] AND IRREVOCABLE [facility] ASSIGNMENTS (FORM 2001) 39095 Ecg Routine Ecg 2018-06-14 00:00:00 W/least 12 Lds W/i r Plan of Care Planned Activity Planned Date Details Comments Source Goal Plan of Care Note [code = 78007-4] Goal Plan of Care Note [code = 76666-4] Goal Plan of Care Note [code = 39269-7] Goal Plan of Care Note [code = 43966-0] Goal Plan of Care Note [code = 50521-4] Goal Plan of Care Note [code = 16568-9] Goal Plan of Care Note [code = 25404-5] Goal Plan of Care Note [code = 89501-0] Goal Plan of Care Note [code = 15089-5] Goal Plan of Care Note [code = 72814-4] Goal Plan of Care Note [code = 33150-5] Goal Plan of Care Note [code = 14885-1] Goal Plan of Care Note [code = 60335-3] Goal Plan of Care Note [code = 16787-8] Goal Plan of Care Note [code = 72472-0] Goal Plan of Care Note [code = 01939-0] Goal Plan of Care Note [code = 84963-3] Goal Plan of Care Note [code = 42824-9] Goal Plan of Care Note [code = 36641-5] Goal Plan of Care Note [code = 47991-4] Goal Plan of Care Note [code = 31946-4] Goal Plan of Care Note [code = 29799-7] Goal Plan of Care Note [code = 52573-0] Goal Plan of Care Note [code = 33545-1] Goal Plan of Care Note [code = 76119-1] Goal Plan of Care Note [code = 44893-6] Goal Plan of Care Note [code = 32205-7] Goal Plan of Care Note [code = 26245-0] Goal Plan of Care Note [code = 91127-7] Goal Plan of Care Note [code = 35275-0] Goal Plan of Care Note [code = 43518-9] Goal Plan of Care Note [code = 62776-1] Goal Plan of Care Note [code = 23922-7] Goal Plan of Care Note [code = 62783-4] Goal Plan of Care Note [code = 53825-0] Goal Plan of Care Note [code = 89715-9] Goal Plan of Care Note [code = 31928-9] Goal Plan of Care Note [code = 34384-0] Goal Plan of Care Note [code = 69896-1] Goal Plan of Care Note [code = 31525-4] Goal Plan of Care Note [code = 41875-9] Goal Plan of Care Note [code = 07925-6] Goal Plan of Care Note [code = 61652-3] Goal Plan of Care Note [code = 05822-4] Goal Plan of Care Note [code = 16612-8] Goal Plan of Care Note [code = 49024-2] Goal Plan of Care Note [code = 74475-8] Goal Plan of Care Note [code = 93881-1] Goal Plan of Care Note [code = 52397-4] Goal Plan of Care Note [code = 31740-4] Goal Plan of Care Note [code = 81060-3] Goal Plan of Care Note [code = 26621-0] Goal Plan of Care Note [code = 78134-5] Goal Plan of Care Note [code = 86450-7] Goal Plan of Care Note [code = 66992-7] Goal Plan of Care Note [code = 34990-6] Goal Plan of Care Note [code = 18666-9] Goal Plan of Care Note [code = 22883-4] Goal Plan of Care Note [code = 01217-2] Goal Plan of Care Note [code = 05969-6] Goal Plan of Care Note [code = 17566-5] Goal Plan of Care Note [code = 33993-3] Goal Plan of Care Note [code = 61356-1] Goal Plan of Care Note [code = 60802-3] Goal Plan of Care Note [code = 49003-5] Goal Plan of Care Note [code = 92514-1] Goal Plan of Care Note [code = 78172-9] Goal Plan of Care Note [code = 79246-9] Goal Plan of Care Note [code = 51896-7] Goal Plan of Care Note [code = 34201-7] Goal Plan of Care Note [code = 48788-3] Goal Plan of Care Note [code = 68299-4] Goal Plan of Care Note [code = 75720-9] Goal Plan of Care Note [code = 28115-6] Goal Plan of Care Note [code = 84456-4] Goal Plan of Care Note [code = 46860-3] Goal Plan of Care Note [code = 28263-0] Goal Plan of Care Note [code = 69574-9] Goal Plan of Care Note [code = 99337-9] Goal Plan of Care Note [code = 49421-2] Goal Plan of Care Note [code = 90045-3] Goal Plan of Care Note [code = 63987-1] Goal Plan of Care Note [code = 19485-6] Goal Plan of Care Note [code = 56551-3] Goal Plan of Care Note [code = 66449-5] Goal Plan of Care Note [code = 76622-2] Goal Plan of Care Note [code = 80304-8] Goal Plan of Care Note [code = 29264-3] Goal Plan of Care Note [code = 79727-0] Goal Plan of Care Note [code = 16851-4] Goal Plan of Care Note [code = 88702-2] Goal Plan of Care Note [code = 54072-7] Goal Plan of Care Note [code = 92438-4] Goal Plan of Care Note [code = 01857-1] Goal Plan of Care Note [code = 34907-4] Goal Plan of Care Note [code = 02938-2] Goal Plan of Care Note [code = 23819-8] Goal Plan of Care Note [code = 60316-6] Goal Plan of Care Note [code = 77414-0] Goal Plan of Care Note [code = 58025-3] Goal Plan of Care Note [code = 85122-6] Goal Plan of Care Note [code = 96506-2] Goal Plan of Care Note [code = 14687-3] Goal Plan of Care Note [code = 74128-6] Goal Plan of Care Note [code = 90846-8] Goal Plan of Care Note [code = 72126-7] Goal Plan of Care Note [code = 48075-6] Goal Plan of Care Note [code = 70169-6] Goal Plan of Care Note [code = 72022-8] Encounters Start End Encounter Admission Attending Care Care Encounter Source Date/Time Date/Time Type Type Clinicians Facility Department ID 2023-04-28 2023-04-28 Outpatient JELENA VICK [id number] Jelena 09:00:00 09:00:00 DARLIN Seybo ld 2023-04-16 2023-04-16 Outpatient JELENA STOKES [id number] Jelena 10:30:00 10:30:00 SPENSER Seybol d 2023-04-13 2023-04-13 Outpatient GAURAV PURVIS [id number] Jelena 10:30:00 10:30:00 Seybol d 2023-03-23 2023-03-23 Outpatient GAURAV PURVIS [id number] Jelena 10:30:00 10:30:00 Seybol d 2023-03-11 2023-03-11 Outpatient JELENA BRIONES [id number] Jelena 11:15:00 11:15:00 AHMED Seybol d 2023-02-18 2023-02-18 Outpatient JELENA GARY [id number] Jelena 11:00:00 11:00:00 ROBYN Seybol d 2023-02-06 2023-02-06 Outpatient JELENA NEVAREZ [id number] Jelena 00:00:00 00:00:00 LASUNDRA Seybo ld 2023-02-06 2023-02-06 Outpatient JELENA JOHN [id number] Jelena 00:00:00 00:00:00 SHANEIKA Seybo ld 2023-02-05 2023-02-05 Outpatient LAB90 JELENA BOWLES [id number] Jelena 09:10:00 09:10:00 Seybol d 2023-02-05 2023-02-05 Outpatient JELENA MALHOTRA [id number] Jelena 00:00:00 00:00:00 BYRON Seybol d 2023-02-05 2023-02-05 Outpatient JELENA TREVIÑO [id number] Jelena 00:00:00 00:00:00 OLENA Seybol d 2023-02-02 2023-02-02 Outpatient JELENA STOKES [id number] Jelena 09:30:00 09:30:00 SPENSER Seybol d 2023-02-02 2023-02-02 Outpatient HUNDL, JELENA BOWLES [id number] Jelena 00:00:00 00:00:00 ROBYN Seybol d 2023-01-28 2023-01-28 Outpatient SEWMONSE JELENA BOWLES [id number] Jelena 11:00:00 11:00:00 AHMED Seybol d 2023-01-18 2023-01-18 Outpatient HUNDL, JELENA BOWLES [id number] Jelena 00:00:00 00:00:00 ROBYN Seybol d 2023-01-17 2023-01-17 Outpatient PREZAS, JELENA BOWLES [id number] Jelena 00:00:00 00:00:00 BYRON Seybol d 2023-01-14 2023-01-14 Outpatient HUNDL, JELENA BOWLES [id number] Jelena 00:00:00 00:00:00 ROBYN Seybol d 2023-01-07 2023-01-07 Outpatient HUNDL, JELENA BOWLES [id number] Jelena 00:00:00 00:00:00 ROBYN Seybol d 2023-01-06 2023-01-06 Outpatient KAWAR, GAURAV JELENA BOWLES [id number] Jelena 00:00:00 00:00:00 Seybol d 2023-01-06 2023-01-06 Outpatient HUNDL, JELENA BOWLES [id number] Jelena 00:00:00 00:00:00 ROBYN Seybol d 2023-01-06 2023-01-06 Outpatient MERRILL, JELENA BOWLES [id number] Jelena 00:00:00 00:00:00 JAROD Seybol d 2023-01-01 2023-01-01 Outpatient HUNDL, JELENA BOWLES [id number] Jelnea 10:30:00 10:30:00 ROBYN Seybol d 2023-01-01 2023-01-01 Outpatient HUNDL, JELENA BOWLES [id number] Jelena 00:00:00 00:00:00 ROBYN Seybol d 2022-12-31 2022-12-31 Outpatient PLABPA JELENA BOWLES [id number] Jelena 09:00:00 09:00:00 Seybol d 2022-12-302022-12-30 Outpatient COOKIE JELENA BOWLES [id number] Jelena 10:30:00 10:30:00 ROBYN Seybol d 2022-12-29 2022-12-29 Outpatient LAB90 JELENA BOWLES [id number] Jelena 11:20:00 11:20:00 Seybol d 2022-12-29 2022-12-29 Outpatient COOKIE JELENA BOWLSE [id number] Jelena 10:30:00 10:30:00 ROBYN Seybol d 2022-12-29 2022-12-29 Outpatient HUNDL JELENA BOWLES [id number] Jelena 00:00:00 00:00:00 ORBYN Seybol d 2022-12-29 2022-12-29 Outpatient SEWIELLITO JELENA BOWLES [id number] Jelena 00:00:00 00:00:00 AHMED Seybol d 2022-12-26 2022-12-26 Outpatient PLABPA JELENA BOWLES [id number] Jelena 09:00:00 09:00:00 Seybol d 2022-12-26 2022-12-26 Outpatient JELENA BYNMU [id number] Jelena 00:00:00 00:00:00 JENNIFER Seybol d 2022-12-26 2022-12-26 Outpatient JELENA MALHOTRA [id number] Jelena 00:00:00 00:00:00 BYRON Seybol d 2022-12-25 2022-12-25 Outpatient GAURAV PURVIS [id number] Jelena 00:00:00 00:00:00 Seybol d 2022-12-24 2022-12-24 Outpatient PLABPA JELENA BOWLES [id number] Jelena 11:30:00 11:30:00 Seybol d 2022-12-22 2022-12-22 Outpatient GAURAV PURVIS [id number] Jelena 09:00:00 09:00:00 Seybol d 2022-12-22 2022-12-22 Outpatient COOKIE JELENA BOWLES [id number] Jelena 00:00:00 00:00:00 ROBYN Seybol d 2022-12-20 2022-12-20 Outpatient JELENA CRUZ [id number] Jelena 00:00:00 00:00:00 JALYN Seybol d 2022-12-19 2022-12-19 Outpatient PREZAJELENA Umaña [id number] Jelena 00:00:00 00:00:00 BYRON Seybol d 2022-12-18 2022-12-18 Outpatient JELENA GARY [id number] Jelena 00:00:00 00:00:00 ROBYN Seybol d 2022-12-18 2022-12-18 Outpatient JELENA GARY [id number] Jelena 00:00:00 00:00:00 ROBYN Seybol d 2022-12-15 2022-12-15 Outpatient BLANCAONJessica BOWLES [id number] Jelena 00:00:00 00:00:00 MD ANKITA Seybol d 2022-12-15 2022-12-15 Outpatient JELENA MARTINEZ [id number] Jelena 00:00:00 00:00:00 MANOLO Seybol d 2022-12-15 2022-12-15 Outpatient JELENA GIVENS [id number] Jelena 00:00:00 00:00:00 GAUTAM Seybol d 2022-12-12 2022-12-12 Outpatient JELENA GIVENS [id number] Jelena 10:30:00 10:30:00 GAUTAM Seybol d 2022-12-12 2022-12-12 Outpatient JELENA BOWLES [id number] Jelena 00:00:00 00:00:00 Seybol d 2022-12-12 2022-12-12 Outpatient PREJELENA ALVA [id number] Jelena 00:00:00 00:00:00 BYRON Seybol d 2022-12-11 2022-12-11 Outpatient PREZAJELENA Umaña [id number] Jelena 00:00:00 00:00:00 BYRON Seybol d 2022-12-08 2022-12-08 Outpatient MERRILLJELENA [id number] Jelena 10:40:00 10:40:00 JAROD Seybol d 2022-12-08 2022-12-08 Outpatient JELENA BOWLES [id number] Jelena 10:25:00 10:25:00 Seybol d 2022-12-08 2022-12-08 Outpatient GAURAV PURVIS JELENA BOWLES [id number] Jelena 08:30:00 08:30:00 Seybol d 2022-12-08 2022-12-08 Outpatient JELENA GARY [id number] Jelena 00:00:00 00:00:00 ROBYN Seybol d 2022-12-04 2022-12-04 Outpatient PREZAJELENA Umaña [id number] Jelena 00:00:00 00:00:00 BYRON Seybol d 2022-12-04 2022-12-04 Outpatient JELENA MOMIN [id number] Jelena 00:00:00 00:00:00 JAROD Seybol d 2022-12-04 2022-12-04 Outpatient JELENA BOWLES [id number] Jelena 00:00:00 00:00:00 Seybol d 2022-12-04 2022-12-04 Outpatient JELENA GARY [id number] Jelena 00:00:00 00:00:00 ROBYN Seybol d 2022-12-01 2022-12-01 Outpatient FARIDALJELENA [id number] Jelena 00:00:00 00:00:00 ROBYN Seybol d 2022-11-27 2022-11-[address] TECH JELENA BOWLES [id number] Jelena 10:30:00 10:30:00 Seybol d 2022-11-27 2022-11-27 Outpatient MYRADHA BOWLES [id number] Jelena 00:00:00 00:00:00 MD ANKITA Seybol d 2022-11-27 2022-11-27 Outpatient MYJELENAONJessica BOWLES [id number] Jelena 00:00:00 00:00:00 MD ANKITA Seybol d 2022-11-21 2022-11-21 Outpatient JELENA GARY [id number] Jelena 00:00:00 00:00:00 ROBYN Seybol d 2022-11-20 2022-11-20 Outpatient [facility] [id number] Jarod 10:08:21 10:08:21 [id number] F Lee 2022-11-19 2022-11-19 Outpatient JELENA GARY [id number] Jelena 00:00:00 00:00:00 ROBYN Seybol d 2022-11-14 2022-11-14 Outpatient JELENA GARY [id number] Jelena 00:00:00 00:00:00 ROBYN Seybol d 2022-11-14 2022-11-14 Outpatient JELENA BOWLES [id number] Jelena 00:00:00 00:00:00 Seybol d 2022-11-11 2022-11-11 Outpatient JELENA GARY [id number] Jelena 00:00:00 00:00:00 ROBYN Seybol d 2022-11-07 2022-11-07 Outpatient JELENA VICK [id number] Jelena 00:00:00 00:00:00 DARLIN Seybo ld 2022-11-07 2022-11-07 Outpatient JELENA VICK [id number] Jelena 00:00:00 00:00:00 DARLIN Seybo ld 2022-11-07 2022-11-07 Outpatient JELENA VICK [id number] Jelena 00:00:00 00:00:00 DARLIN Seybo ld 2022-11-07 2022-11-07 Outpatient JELENA VICK [id number] Jelena 00:00:00 00:00:00 DARLIN Seybo ld 2022-11-07 2022-11-07 Outpatient JELENA GARY [id number] Jelena 00:00:00 00:00:00 ROBYN Seybol d 2022-11-07 2022-11-07 Outpatient JELENA GARY [id number] Jelena 00:00:00 00:00:00 ROBYN Seybol d 2022-11-07 2022-11-07 Outpatient JELENA GARY [id number] Jelena 00:00:00 00:00:00 ROBYN Seybol d 2022-11-07 2022-11-07 Outpatient COOKIE JELENA BOWLES [id number] Jelena 00:00:00 00:00:00 ROBYN Seybol d 2022-11-07 2022-11-07 Outpatient COOKIE JELENA BOWLES [id number] Jelena 00:00:00 00:00:00 ROBYN Seybol d 2022-11-07 2022-11-07 Outpatient COOKIE JELENA BOWLES [id number] Jelena 00:00:00 00:00:00 ROBYN Seybol d 2022-10-30 2022-10-30 Outpatient [facility] [id number] Jarod 08:26:44 08:26:44 0302 F Lee 2022-10-30 2022-10-30 Outpatient JELENA GARY [id number] Jelena 00:00:00 00:00:00 ROBYN Seybol d 2022-10-29 2022-10-29 Outpatient JELENA GARY [id number] Jelena 00:00:00 00:00:00 ROBYN Seybol d 2022-10-29 2022-10-29 Outpatient COOKIE JELENA BOWLES [id number] Jelena 00:00:00 00:00:00 ROBYN Seybol d 2022-10-29 2022-10-29 Outpatient JELENA GARY [id number] Jelena 00:00:00 00:00:00 ROBYN Seybol d 2022-10-29 2022-10-29 Outpatient JELENA VICK [id number] Jelena 00:00:00 00:00:00 DARLIN Seybo ld 2022-10-28 2022-10-28 Outpatient [facility] JELENA BOWLES [id number] Jelena 09:45:00 09:45:00 Seybol d 2022-10-28 2022-10-28 Outpatient JELENA VICK [id number] Jelena 09:00:00 09:00:00 DARLIN Seybo ld 2022-10-23 2022-10-23 Outpatient JELENA GARY [id number] Jelena 00:00:00 00:00:00 ROBYN Seybol d 2022-10-22 2022-10-22 Outpatient COOKIE, JELENA BOWLES [id number] Jelena 08:00:00 08:00:00 ROBYN Seybol d 2022-10-13 2022-10-13 Outpatient SFA SFA [id number] Jarod 11:24:16 11:24:16 0213 F Lee 2022-10-10 2022-10-10 Outpatient LAB90 JELENA BOWLES [id number] Jelena 09:25:00 09:25:00 Seybol d 2022-10-10 2022-10-10 Outpatient HUNDL, JELENA BOWLES [id number] Jelena 08:30:00 08:30:00 ROBYN Seybol d 2022-10-10 2022-10-10 Outpatient HUNDL, JELENA BOWLES [id number] Jelena 00:00:00 00:00:00 ROBYN Seybol d 2022-10-09 2022-10-09 Outpatient HUNDL, JELENA BOWLES [id number] Jelena 08:30:00 08:30:00 ROBYN Seybol d 2022-10-09 2022-10-09 Outpatient HUNDL, JELENA BOWLES [id number] Jelena 00:00:00 00:00:00 ROBYN Seybol d 2022-09-30 2022-09-30 Outpatient HUNDL, JELENA BOWLES [id number] Jelena 00:00:00 00:00:00 ROBYN Seybol d 2022-09-26 2022-09-26 Outpatient HUNDL, JELENA BOWLES [id number] Jelena 00:00:00 00:00:00 ROBNY Seybol d 2022-09-24 2022-09-24 Outpatient LAB90 JELENA BOWLES [id number] Jelena 17:05:00 17:05:00 Seybol d 2022-09-24 2022-09-24 Outpatient FARIDAL, JELENA BOWLES [id number] Jelena 11:00:00 11:00:00 ROBYN Seybol d 2022-09-22 2022-09-22 Outpatient SFA SFA [id number] Jarod 09:21:24 09:21:24 0123 F Lee 2022-09-22 2022-09-22 Outpatient FARIDAL, JELENA BOWLES [id number] Jelena 00:00:00 00:00:00 ROBYN Seybol d 2022-09-17 2022-09-17 Outpatient JELENA GARY JELENA [id number] Jelena 00:00:00 00:00:00 ROBYN Seybol d 2022-09-12 2022-09-12 Outpatient JELENA GARYSEY [id number] Jelena 00:00:00 00:00:00 ROBYN Seybol d 2022-09-11 2022-09-11 Outpatient JELENA GARY JELENA [id number] Jelena 00:00:00 00:00:00 ROBYN Seybol d 2022-09-10 2022-09-10 Outpatient SFA SFA [id number] Jarod 11:36:44 11:36:44 0111 F Lee 2022-09-10 2022-09-10 Outpatient [id number] 00:00:00 00:00:00 Visit 87da-47c3 7da-47c3-b -uo20-9r1 r38-3h0h8k [id number] 2022-09-09 2022-09-09 Outpatient LAB90 JELENA JELENA [id number] Jelena 09:30:00 09:30:00 Setiffanyol d 2022-09-09 2022-09-09 Outpatient JELENA GARY JELENA [id number] Jelena 08:30:00 08:30:00 ROBYN Seybol d 2022-09-09 2022-09-09 Outpatient JELENA GARY JELENA [id number] Jelena 00:00:00 00:00:00 ROBYN Seybol d 2022-09-04 2022-09-04 Outpatient SFA SFA [id number] Jarod 08:29:33 08:29:33 0105 F Lee 2022-09-04 2022-09-04 Outpatient [id number] 00:00:00 00:00:00 Visit 0ro7-9pn6 bd9-4ec7-b -bbc8-d95 bc8-d957ab [id number] 4y4720 2022-08-28 2022-08-28 Outpatient SFA SFA [id number] Jarod 11:35:11 11:35:11 1229 F Lee 2022-08-28 2022-08-28 Outpatient [id number] [id number] 00:00:00 00:00:00 Visit 010b-47c2 10b-47c2-b -z5m0-h01 0x0-s635o9 [id number] [id number] 2022-05-24 2022-05-24 emergency [id number] 15:15:00 18:38:00 2381-551e 81-551e-843 36 -843c-ca8 c-[id number] [id number] 5eb 2022-03-15 2022-03-15 Outpatient [facility] 761 [place] 10:56:00 10:56:00 FLO 0716 [facility] 2020-11-29 2020-11-29 Outpatient [facility] [id number] Univers 15:30:00 15:30:00 ANNEMARIE klein f [facility] 2020-10-23 2020-10-23 Telephone Alexandre Delgado 1.2.840.[id number] [facility] 00:00:00 00:00:00 [facility] 350.1.13.10 it y of HEALTH 4.2.7.2.686 [facility] UNIT [phone] [address] 2020-10-23 2020-10-23 Telephone Alexandre Delgado 1.2.840.114 [id number] 00:00:00 00:00:00 [facility] 350.1.13.10 HEALTH 4.2.7.2.686 UNIT [id number] [facility] 2020-10-12 2020-10-12 Outpatient Gr[facility] [id number] Univers 09:00:00 09:00:00 SHEY arshad [facility] 2020-09-27 2020-09-27 Orders Doctor PRIETO 1.2.840.114 [id number] Univers 00:00:00 00:00:00 Only UnassignedLESLYE 350.1.13.10 ity of [place] [facility] 4.2.7.2.686 Marvel as [phone] [address] 2020-09-27 2020-09-27 Orders Doctor CONNER 1.2.840.114 [id number] 00:00:00 00:00:00 Only Unassigned, LES[place] 350.1.13.10 [facility] 4.2.7.2.686 [id number] [facility] 2020-09-20 2020-09-20 Telephone [facility] 1.2.840.114 [id number] Univers 00:00:00 00:00:00 Shey Cabral 350.1.13.10 it y of Surgical 4.2.7.2.686 Marvel as Specialti [phone] [address] 2020-09-20 2020-09-20 [facility]phone [facility] 1.2.840.114 [id number] 00:00:00 00:00:00 Shey Cabral 350.1.13.10 Surgical 4.2.7.2.686 Specialti [phone] es [address] [place] [address] 2020-09-07 2020-09-07 Office [facility] 1.2.230.[id number] [facility] 09:03:53 09:52:26 Visit Shey Cabral 350.1.13.10 it y of Surgical 4.2.7.2.686 Marvel as Specialti [id number] Wi dical [address] 2020-09-07 2020-09-07 Office [facility] 1.2.348.654 [id number] 09:03:53 09:52:26 Visit Shey Cabral 350.1.13.10 Surgical 4.2.7.2.686 Specialti [phone] es [address] [place] [address] 2020-09-07 2020-09-07 Outpatient R TASH [facility] [id number] Univers 09:00:00 09:00:00 SHEY arshad [facility] 2020-08-30 2020-08-30 Outpatient R TASH [facility] [id number] Univers 08:30:00 08:30:00 SHEY arshad of [facility] 2020-08-20 2020-08-20 [facility] 1.2.840.114 [id number] Univers 10:11:58 23:59:00 Encounter Health 350.1.13.10 [place] [phone] [facility] [address] ([facility]) 2020-08-20 2020-08-20 Outpatient R SANDY [facility] [id number] Univers 10:11:58 23:59:00 ity [facility] 2020-08-16 2020-08-16 Refgreg [facility] 1.2.840.114 [id number] Univers 00:00:00 00:00:00 [facility] 350.1.13.10 it y of [place] 4.2.7.2.686 Marvel as Professio [phone] [address] Office Building One 2020-08-02 2020-08-02 Office Care, Ang Primary BRAZORIA 1.2.840 .114 [id number] Univers 10:40:31 12:20:58 Visit Alexandre Delgado [facility] 350.1.13.10 it[place] [id number] [facility] [address] 2020-08-02 2020-08-02 Outpatient R SANDY [facility] [id number] Univers 10:30:00 10:30:00 ity [facility] 2020-08-02 2020-08-02 Orders Doctor CONNER 1.2.840.114 [id number] Univers 00:00:00 00:00:00 Only Unassigned, LESLEY 350.1.13.10 ity of [place] [facility] 4.2.7.2.686 Marvel as [phone] [facility] [address] 2020-05-31 2020-05-31 Outpatient R BRIANDA [facility] [id number] Univers 08:50:00 08:50:00 ILIANA ity [facility] 2020-05-24 2020-05-24 Outpatient R SANDY [facility] [id number] Univers 00:00:00 00:00:00 ity of [facility] 2020-05-22 2020-05-22 Outpatient [facility] [id number] Univers 09:50:00 09:50:00 ILIANA ity [facility] 2020-05-17 2020-05-21 Office Care, Aries GALLEGOS 1.2.840 .114 [id number] Univers 11:05:31 09:49:52 Visit Alexandre Delgado [facility] 350.1.13.10 it[place] of [place] [id number] [facility] [address] 2020-05-21 2020-05-21 Outpatient R SANDY [facility] [id number] Univers 00:00:00 00:00:00 ity [facility] 2020-05-17 2020-05-17 Outpatient R SANDY [facility] [id number] Univers 10:30:00 10:30:00 ity [facility] 2020-05-17 2020-05-17 Orders Doctor CONNER 1.2.840.114 [id number] Univers 00:00:00 00:00:00 Only Unassigned, LESLEY 350.1.13.10 ity of [place] [facility] 4.2.7.2.686 Marvel as [phone] [facility] [address] 2020-05-08 2020-05-08 Outpatient R [facility] [id number] Univers 08:30:00 08:30:00 ANNEMARIE magaña [facility] 2020-05-08 2020-05-08 Telemedici [facility] 1.2.840.114 [id number] Univers 07:05:41 07:35:41 ne Visit Annemarie AVILES 350.1.13.10 it[place] C[place] AT [phone] Wi suman BYRD 2 [facility] 2020-05-01 2020-05-01 Outpatient R [facility] [id number] Univers 09:30:00 09:30:00 ANNEMARIE magaña [facility] 2020-04-24 2020-04-24 Outpatient R [facility] [id number] Univers 09:30:00 09:30:00 ANNEMARIE magaña [facility] 2020-03-08 2020-03-20 Office Care, Ang Primary ROSY 1.2.840 .114 [id number] Univers 10:02:59 09:15:53 Visit Alexandre Delgado [facility] 350.1.13.10 it[place] [id number] [facility] [address] 2020-03-16 2020-03-16 Hospital Alexandre Delgado [facility] 1.2.840.114 [id number] Univers 07:51:00 23:59:00 Encounter [place] 350.1.13.10 ity of [place].2.[place] [phone] [facility] [address] 2020-03-16 2020-03-16 Outpatient R BETHANY DELGADOCY [facility] [id number] Univers 00:00:00 00:00:00 ity of [facility] 2020-03-13 2020-03-13 Telephone Alexandre Delgado ROSY 1.2.840.114 [id number] Univers 00:00:00 00:00:00 [facility] 350.1.13.10 it [place] [phone] [facility] CARE - [address] [place] [address] 2020-03-08 2020-03-08 Outpatient R SANDY ALEXANDRE [facility] [id number] Univers 10:00:00 10:00:00 ity of [facility] 2020-03-08 2020-03-08 Orders Doctor CONNER 1.2.840.114 [id number] Univers 00:00:00 00:00:00 Only Unassigned, LESLEY 350.1.13.10 ity of [place] [facility] 4.2.7.2.686 Marvel as [phone] [facility] [address] 2020-02-29 2020-02-29 Telephone Alexandre Delgado ROSY 1.2.840.114 [id number] Univers 00:00:00 00:00:00 [facility] 350.1.13.10 it [place] [phone] [facility] [address] 2020-02-14 2020-02-14 Telephone Fer [facility] 1.2.159.441 [id number] Univers 00:00:00 00:00:00 Dannie Gaspar 350.1.13.10 it[place] of [place].2.[place] Profess[place] [phone] Wi dical nal 059 [facility] 2020-02-10 2020-02-10 Outpatient R [facility] [id number] Univers 09:00:00 09:00:00 ity of [facility] 2020-02-10 2020-02-10 Orders Doctor PRIETO 1.2.840.114 [id number] Univers 00:00:00 00:00:00 Only Unassigned, LESLEY 350.1.13.10 [facility] 4.2.7.2.686 Marvel as [phone] [facility] [address] 2020-01-24 2020-01-24 Out[facility] [id number] Univers 10:40:00 10:40:00 DANNIE tafoyay o f [facility] 2020-01-24 2020-01-24 Telemedici [facility] 1.2.840.114 [id number] Univers 07:57:10 08:17:10 ne Visit Dannie [place] 350.1.13.10 ity [facility] [place].2.7.2.[place] Profess[place] [phone] Wi dical nal 9 [facility] 2020-01-18 2020-01-18 Outpatient R [facility] [id number] Univers 13:00:00 13:00:00 ity of [facility] 2019-11-10 2019-11-10 Telephone Alexandre Delgado 1.2.840.114 [id number] Univers 00:00:00 00:00:00 [facility] 350.1.13.10 it y of [facility] 4.2.7.2.[place] [id number] [facility] [address] 2019-11-03 2019-11-03 Outpatient R ALEXANDRE DELGADO [facility] [id number] Univers 08:15:00 08:15:00 ity of [facility] 2019-10-25 2019-10-25 Office [facility] 1.2.840.114 [id number] Univers 08:48:06 09:27:18 Visit Annemarie AVILES 350.1.13.10 ity of C[place]2.[place].2.[place] C[place] AT [id number] Wi suman BYRD 072 [facility] 2019-10-25 2019-10-25 Outpatient R DAJUAN [facility] [id number] Univers 09:00:00 09:00:00 ANNEMARIE ity o f [facility] 2019-10-24 2019-10-24 Office [facility] 1.2.840.114 [id number] Univers 10:57:17 15:44:20 Visit Dannie [place] 350.1.13.10 ity of [place].2.[place].2.[place] Profess[place] [phone] Wi lawrencenargis parviz 059 [facility] 2019-10-24 2019-10-24 Outpatient R FER [facility] [id number] Univers 11:00:00 11:00:00 LATONYOUNG pavithra magaña [facility] 2019-09-29 2019-09-29 Office Care, Aries GALLEGOS 1.2.840 .114 [id number] Univers 10:38:08 11:16:42 Visit Alexandre Delgado [facility] 350.1.13.10 ity of [place].2.[place] [phone] [address] 2019-09-29 2019-09-29 Outpatient R ALEXANDRE DELGADO [facility] [id number] Univers 10:00:00 11:16:42 ity of [facility] 2019-09-14 2019-09-14 Telephone Alexandre Delgado ROSY 1.2.840.114 [id number] Univers 00:00:00 00:00:00 [facility] 350.1.13.10 it y of [place].2.[place] [id number] [facility] [address] 2019-09-08 2019-09-08 Orders Doctor PRIETO 1.2.840.114 [id number] Univers 00:00:00 00:00:00 Only Unassigned, LESLEY 350.1.13.10 ity of [place] [facility] 4.2.7.2.686 Marvel as [phone] [facility] [address] 2019-05-05 2019-05-05 Telephone Alexandre Delgado 1.2.840.114 [id number] Univers 00:00:00 00:00:00 E [facility] 350.1.13.10 it y of [place]2.[place] [id number] [facility] [address] 2019-04-28 2019-04-28 Office Care, Aries GALLEGOS 1.2.840 .114 [id number] Univers 09:26:40 11:38:19 Visit Alexandre Delgado [facility] 350.1.13.10 ity of HE[place] 4[place].2.[place] [id number] [facility] [address] 2019-04-28 2019-04-28 Orders Doctor CONNER 1.2.840.114 [id number] Univers 00:00:00 00:00:00 Only Unassigned, LESLEY 350.1.13.10 ity of [facility] 4.2.7.2.686 Marvel as [phone] [place] [address] [address] Results Test Description Test Time Test Comments Results Result Comments Source TSH, THIRD GENERATION 2022-09-11 04:08:38 Test Item Value Reference Range Interpretation Comme nts TSH, THIRD GENERATION (test 2.060 UIU/ML 0.400-4.100 UNLESS OTHERWISE INDICATED, code = 2821) ALL TESTING PER FORMED ATCLINICAL PATH [facility], [place] [address] 9588 UNIVERSAL BANKER: Tracey COBB [id number] [place]. [id number] COMPREHENSIVE METABOLIC [id number] 03:23:31 Test Item Value Reference Range Interpretation Comments GLUCOSE (test code = 80 MG/DL 70-99 2216) BUN (test code = 7 MG/DL 6-20 2207) CREATININE (test 0.55 MG/DL 0.60-1.30 L code = 2214) eGFR (2020 CKD-EPI) 127 >60 (test code = 08455) ML/MIN/1.73 CALC BUN/CREAT (test 13 RATIO 6-28 code = 2235) SODIUM (test code = 138 MEQ/L 922-865 4259) POTASSIUM (test code 3.9 MEQ/L 3.5-5.4 = 2228) CHLORIDE (test code 104 MEQ/L 95-107 = [...] U/L 5-40 2218) CBC W/AUTO DIFF WITH [id number] 02:00:05 Test Item Value Reference Range Interpretation [...] RBCS 0.00 K/UL 0.00-0.11 (test code = 72550) CT/NG, NAAT, [id number] 20:52:50 Test Item Value Reference Range Interpretation Comments GONORRHEA, NAAT NEGATIVE NEGATIVE Note: Testi ng is (test code = 84466) performe d with Emili EDEL 6800/8800 systems using real-time polymerase cali n reaction (PCR) method. CHLAMYDIA, NAAT NEGATIVE NEGATIVE Note: Testi ng is (test code = 97962) performe d with Emili EDEL 6800/8800 systems using real-time polymerase cali n reaction (PCR) method. HEPATITIS PANEL, [id number] 05:02:20 Test Item Value Reference Range Interpretation Comments HEPATITIS A IgM (test NON-REACTIVE NON-REACTIVE code = 92925) HEPATITIS B CORE IgM NON-REACTIVE NON-REACTIVE (test code = 4644) HEPATITIS B SURF AG NON-REACTIVE NON-REACTIVE (test code = 2739) HEPATITIS C ANTIBODY NON-REACTIVE NON-REACTIVE (test code = 4675) INTERPRETATION (NOTE) Hepatitis A HEPATITIS A: (test code sero logy shows no = 2552) evidence of acu te hepatitis A. INTERPRETATION (NOTE) Hepatitis B HEPATITIS B: (test code sero logy shows no = 33188) evidence of acu te hepatitis B and no indication of exposure to hepatitis B vir us in the previous alejandra eight months. INTERPRETATION (NOTE) Hepatitis C HEPATITIS C: (test code sero logy shows no = 58428) evidence of exposure to hepatitisC viru s at this time. I t can take up to 12 months after exposure tothe hepatitis C vir us for antibodies to become detectab le in the blood in certain patient s. HIV 1/2 4TH GEN, RFLX [id number] 05:02:20 Test Item Value Reference Range Interpretation Comments HIV 1/2 4TH GEN, NON-REACTIVE NON-REACTIVE UNLESS OTH ERWISE RFLX CONF (test INDICATED, A LL TESTING code = 3514) PERFORMED [facility] [employer] [address] [place] [id number] [place] [address] DIRECTOR: [place] AGUIRRE M.D. CLIA NUMBER [id number] CAP ACCREDITATION N O. [id number] RPR REFLEX TO T. PALLIDUM - [id number] 04:28:08 Test Item Value Reference Range Interpretation Comments RPR (test code = 83362) NON-REACTIVE NON-REACTIVE RPR TITER (test code = 3500) NOT INDIC. TITER NOT INDIC. CT/NG, TMA, [id number] 00:00:00 Test Item Value Reference Range Interpretation Comments GONORRHEA, NAAT (test code = 58282) NEGATIVE CHLAMYDIA, NAAT (test code = 49471) NEGATIVE CT/NG, TMA, [id number] 00:00:00 Test Item Value Reference Range Interpretation Comments GONORRHEA, NAAT (test code = 43251) NEGATIVE CHLAMYDIA, NAAT (test code = 02206) NEGATIVE RPR REFLEX TO T. PALLIDUM - [id number] 00:00:00 Test Item Value Reference Range Interpretation Comments RPR (test code = 54934) NON-REACTIVE RPR TITER (test code = 3500) NOT INDIC. TITER RPR REFLEX TO T. PALLIDUM - [id number] 00:00:00 Test Item Value Reference Range Interpretation Comments RPR (test code = 42656) NON-REACTIVE RPR TITER (test code = 3500) NOT INDIC. TITER ACUTE HEPATITIS [id number] 00:00:00 Test Item Value Reference Range Interpretation Comments HEPATITIS A IgM (test code = NON-REACTIVE 42756) HEPATITIS B CORE IgM (test code NON-REACTIVE = 4644) HEPATITIS B SURF AG (test code = NON-REACTIVE 2739) HEPATITIS C ANTIBODY (test code NON-REACTIVE = 4675) INTERPRETATION HEPATITIS A: (NOTE) (test code = 2552) INTERPRETATION HEPATITIS B: (NOTE) (test code = 98757) INTERPRETATION HEPATITIS C: (NOTE) (test code = 55129) ACUTE HEPATITIS [id number] 00:00:00 Test Item Value Reference Range Interpretation Comments HEPATITIS A IgM (test code = NON-REACTIVE 74988) HEPATITIS B CORE IgM (test code NON-REACTIVE = 4644) HEPATITIS B SURF AG (test code = NON-REACTIVE 2739) HEPATITIS C ANTIBODY (test code NON-REACTIVE = 4675) INTERPRETATION HEPATITIS A: (NOTE) (test code = 2552) INTERPRETATION HEPATITIS B: (NOTE) (test code = 82723) INTERPRETATION HEPATITIS C: (NOTE) (test code = 48798) HIV 1/2 4TH GEN, RFLX [id number] 00:00:00 Test Item Value Reference Range Interpretation Comments HIV 1/2 4TH GEN, RFLX CONF (test NON-REACTIVE code = 3514) HIV 1/2 4TH GEN, RFLX [id number] 00:00:00 Test Item Value Reference Range Interpretation Comments HIV 1/2 4TH GEN, RFLX CONF (test NON-REACTIVE code = 3514) VITAMIN D, 25 [id number] 03:25:23 Test Item Value Reference Range Interpretation [...] OTHERWISE INDIC ATED, ALL TESTING PERFORM ED [facility], [facility]. [address] [place] [address] LABORATORY DIRE CTOR: Rebeca COBB. MALLORYIA NUMBER [id number] CAP ACCREDITATION N O. [id number] HIV 1/2 4TH GEN, RFLX [id number] 03:00:39 Test Item Value Reference Range Interpretation Comments HIV 1/2 4TH GEN, RFLX CONF (test NON-REACTIVE NON-REACTIVE code = 3514) HIV AB/AG COMBO RFLX [id number] 00:00:00 Test Item Value Reference Range Interpretation Comments HIV 1/2 4TH GEN, RFLX CONF (test NON-REACTIVE code = 3514) HIV AB/AG COMBO RFLX [id number] 00:00:00 Test Item Value Reference Range Interpretation Comments HIV 1/2 4TH GEN, RFLX CONF (test NON-REACTIVE code = 3514) VITAMIN D, 25 [id number] 00:00:00 Test Item Value Reference Range Interpretation Comments VITAMIN D, 25 OH (test code = 4958) 27 NG/ML VITAMIN D, 25 [id number] 00:00:00 Test Item Value Reference Range Interpretation Comments VITAMIN D, 25 OH (test code = 4958) 27 NG/ML HIV AB/AG COMBO RFLX [id number] 00:00:00 Test Item Value Reference Range Interpretation Comments HIV 1/2 4TH GEN, RFLX CONF (test NON-REACTIVE code = 3514) HIV AB/AG COMBO RFLX [id number] 00:00:00 Test Item Value Reference Range Interpretation Comments HIV 1/2 4TH GEN, RFLX CONF (test NON-REACTIVE code = 3514) VITAMIN D, 25 [id number] 00:00:00 Test Item Value Reference Range Interpretation Comments VITAMIN D, 25 OH (test code = 4958) 27 NG/ML VITAMIN D, 25 [id number] 00:00:00 Test Item Value Reference Range Interpretation Comments VITAMIN D, 25 OH (test code = 4958) 27 NG/ML HIV AB/AG COMBO RFLX [id number] 00:00:00 Test Item Value Reference Range Interpretation Comments HIV 1/2 4TH GEN, RFLX CONF (test NON-REACTIVE code = 3514) HIV AB/AG COMBO RFLX [id number] 00:00:00 Test Item Value Reference Range Interpretation Comments HIV 1/2 4TH GEN, RFLX CONF (test NON-REACTIVE code = 3514) VITAMIN D, 25 [id number] 00:00:00 Test Item Value Reference Range Interpretation Comments VITAMIN D, 25 OH (test code = 4958) 27 NG/ML VITAMIN D, 25 [id number] 00:00:00 Test Item Value Reference Range Interpretation Comments VITAMIN D, 25 OH (test code = 4958) 27 NG/ML TSH, THIRD [id number] 00:19:50 Test Item Value Reference Range Interpretation Comments TSH, THIRD GENERATION (test code 1.090 UIU/ML 0.400-4.100 = 2821) [id number] 00:00:00 Test Item Value Reference Range Interpretation Comments TSH, THIRD GENERATION (test code 1.090 UIU/ML = 2821) [id number] 00:00:00 Test Item Value Reference Range Interpretation Comments TSH, THIRD GENERATION (test code 1.090 UIU/ML = 2821) [id number] 00:00:00 Test Item Value Reference Range Interpretation Comments TSH, THIRD GENERATION (test code 1.090 UIU/ML = 2821) [id number] 00:00:00 Test Item Value Reference Range Interpretation Comments TSH, THIRD GENERATION (test code 1.090 UIU/ML = 2821) [id number] 00:00:00 Test Item Value Reference Range Interpretation Comments TSH, THIRD GENERATION (test code 1.090 UIU/ML = 2821) [id number] 00:00:00 Test Item Value Reference Range Interpretation Comments TSH, THIRD GENERATION (test code 1.090 UIU/ML = 2821) [id number] 00:00:00 Test Item Value Reference Range Interpretation Comments TSH, THIRD GENERATION (test code 1.090 UIU/ML = 2821) [id number] 00:00:00 Test Item Value Reference Range Interpretation Comments TSH, THIRD GENERATION (test code 1.090 UIU/ML = 2821) [id number] 00:00:00 Test Item Value Reference Range Interpretation Comments TSH, THIRD GENERATION (test code 1.090 UIU/ML = 2821) LIPID [id number] 23:59:41 Test Item Value Reference Range Interpretation [...] MOREINFORMATION , SEE CLIENT ANNOUNCE MENT AT [email or web address] RISK RATIO LDL/HDL 1.79 RATIO <3.22 (test code = 2238) COMPREHENSIVE METABOLIC [id number] 23:59:41 Test Item Value Reference Range Interpretation Comments GLUCOSE (test code = 77 MG/DL 70-99 2216) BUN (test code = 8 MG/DL 6-20 2207) CREATININE (test 0.67 MG/DL 0.60-1.30 EFFECTIVE code = 2214) 08/12/2021, [facility] HAS IMPLEMENTED THE NKF-ASN RECOMME NDED KD-EPI EGF R REFIT CALCULATI ON THAT DOES NOT INCLUDE A COEFFICIENT FOR RACE. FOR MORE INFORMATION, SE E ANNOUNCEMENT [email or web address] eGFR (2020 CKD-EPI) 122 >60 (test code = 37396) ML/MIN/1.73 CALC BUN/CREAT (test 12 RATIO 6-28 code = 2235) SODIUM (test code = 141 MEQ/L 386-205 6324) POTASSIUM (test code 4.0 MEQ/L 3.5-5.4 = 2228) CHLORIDE (test code 102 MEQ/L 95-107 = 2215) CARBON DIOXIDE (test 22 MEQ/L 19-31 code = 2206) CALCIUM (test code = 9.3 MG/DL 8.5-10.5 2209) PROTEIN, TOTAL (test 7.6 G/DL 6.1-8.3 code [...] = 92 U/L 5-40 H 2218) HEMOGLOBIN [id number] 03:14:31 Test Item Value Reference Range Interpretation Comments HEMOGLOBIN A1c (test code = 59181) 6.0 % 4.2-5.6 H CBC W/AUTO DIFF WITH [id number] 03:06:02 Test Item Value Reference Range Interpretation [...] RBCS 0.00 K/UL 0.00-0.11 (test code = 67139) CBC W/AUTO [id number] 00:00:00 Test Item Value Reference Range Interpretation [...] NUCLEATED RBCS (test code = 0.00 K/UL 34325) CBC W/AUTO [id number] 00:00:00 Test Item Value Reference Range Interpretation [...] NUCLEATED RBCS (test code = 0.00 K/UL 77753) CBC W/AUTO [id number] 00:00:00 Test Item Value Reference Range Interpretation [...] NUCLEATED RBCS (test code = 0.00 K/UL 88281) HEMOGLOBIN [id number] 00:00:00 Test Item Value Reference Range Interpretation Comments HEMOGLOBIN A1c (test code = 69011) 6.0 % HEMOGLOBIN [id number] 00:00:00 Test Item Value Reference Range Interpretation Comments HEMOGLOBIN A1c (test code = 27455) 6.0 % HEMOGLOBIN [id number] 00:00:00 Test Item Value Reference Range Interpretation Comments HEMOGLOBIN A1c (test code = 06466) 6.0 % LIPID [id number] 00:00:00 Test Item Value Reference Range Interpretation Comments CHOLESTEROL (test code = 2210) 124 MG/DL TRIGLYCERIDES (test code = 2232) 69 MG/DL HDL CHOLESTEROL (test code = 2220) 39 MG/DL CALC LDL CHOL (test code = 2237) 70 MG/DL RISK RATIO LDL/HDL (test code = 1.79 RATIO 2238) LIPID [id number] 00:00:00 Test Item Value Reference Range Interpretation Comments CHOLESTEROL (test code = 2210) 124 MG/DL TRIGLYCERIDES (test code = 2232) 69 MG/DL HDL CHOLESTEROL (test code = 2220) 39 MG/DL CALC LDL CHOL (test code = 2237) 70 MG/DL RISK RATIO LDL/HDL (test code = 1.79 RATIO 2238) COMPREHENSIVE METABOLIC [id number] 00:00:00 Test Item Value Reference Range Interpretation Comments GLUCOSE (test code = 2217) 77 MG/DL BUN (test code = 2208) 8 MG/DL CREATININE (test code = 2214) 0.67 MG/DL eGFR (2020 CKD-EPI) (test 122 ML/MIN/1.73 code = 06876) CALC BUN/CREAT (test code = 12 RATIO [...] code = 2219) 92 U/L COMPREHENSIVE METABOLIC [id number] 00:00:00 Test Item Value Reference Range Interpretation Comments GLUCOSE (test code = 2217) 77 MG/DL BUN (test code = 2208) 8 MG/DL CREATININE (test code = 2214) 0.67 MG/DL eGFR (2020 CKD-EPI) (test 122 ML/MIN/1.73 code = 00219) CALC BUN/CREAT (test code = 12 RATIO [...] BILIRUBIN, TOTAL (test code = 0.3 MG/DL 7) ALKALINE PHOSPHATASE (test 56 U/L code = 2204) AST (test code = 2218) 63 U/L ALT (test code = 2219) 92 U/L CBC W/AUTO [id number] 00:00:00 Test Item Value Reference Range Interpretation [...] NUCLEATED RBCS (test code = 0.00 K/UL 85157) CBC W/AUTO [id number] 00:00:00 Test Item Value Reference Range Interpretation [...] NUCLEATED RBCS (test code = 0.00 K/UL 97053) CBC W/AUTO [id number] 00:00:00 Test Item Value Reference Range Interpretation [...] NUCLEATED RBCS (test code = 0.00 K/UL 91955) CBC W/AUTO [id number] 00:00:00 Test Item Value Reference Range Interpretation [...] NUCLEATED RBCS (test code = 0.00 K/UL 83877) HEMOGLOBIN [id number] 00:00:00 Test Item Value Reference Range Interpretation Comments HEMOGLOBIN A1c (test code = 15036) 6.0 % HEMOGLOBIN [id number] 00:00:00 Test Item Value Reference Range Interpretation Comments HEMOGLOBIN A1c (test code = 99877) 6.0 % HEMOGLOBIN [id number] 00:00:00 Test Item Value Reference Range Interpretation Comments HEMOGLOBIN A1c (test code = 69176) 6.0 % LIPID [id number] 00:00:00 Test Item Value Reference Range Interpretation Comments CHOLESTEROL (test code = 2210) 124 MG/DL TRIGLYCERIDES (test code = 2232) 69 MG/DL HDL CHOLESTEROL (test code = 2220) 39 MG/DL CALC LDL CHOL (test code = 2237) 70 MG/DL RISK RATIO LDL/HDL (test code = 1.79 RATIO 2238) LIPID [id number] 00:00:00 Test Item Value Reference Range Interpretation Comments CHOLESTEROL (test code = 2210) 124 MG/DL TRIGLYCERIDES (test code = 2232) 69 MG/DL HDL CHOLESTEROL (test code = 2220) 39 MG/DL CALC LDL CHOL (test code = 2237) 70 MG/DL RISK RATIO LDL/HDL (test code = 1.79 RATIO 2238) COMPREHENSIVE METABOLIC [id number] 00:00:00 Test Item Value Reference Range Interpretation Comments GLUCOSE (test code = 2217) 77 MG/DL BUN (test code = 2208) 8 MG/DL CREATININE (test code = 2214) 0.67 MG/DL eGFR (2020 CKD-EPI) (test 122 ML/MIN/1.73 code = 51917) CALC BUN/CREAT (test code = 12 RATIO [...] code = 2219) 92 U/L COMPREHENSIVE METABOLIC [id number] 00:00:00 Test Item Value Reference Range Interpretation Comments GLUCOSE (test code = 2217) 77 MG/DL BUN (test code = 2208) 8 MG/DL CREATININE (test code = 2214) 0.67 MG/DL eGFR (2020 CKD-EPI) (test 122 ML/MIN/1.73 code = 92211) CALC BUN/CREAT (test code = 12 RATIO [...] code = 2219) 92 U/L CBC W/AUTO [id number] 00:00:00 Test Item Value Reference Range Interpretation [...] NUCLEATED RBCS (test code = 0.00 K/UL 60686) CBC W/AUTO [id number] 00:00:00 Test Item Value Reference Range Interpretation [...] NUCLEATED RBCS (test code = 0.00 K/UL 10641) HEMOGLOBIN [id number] 00:00:00 Test Item Value Reference Range Interpretation Comments HEMOGLOBIN A1c (test code = 17830) 6.0 % HEMOGLOBIN [id number] 00:00:00 Test Item Value Reference Range Interpretation Comments HEMOGLOBIN A1c (test code = 18516) 6.0 % HEMOGLOBIN [id number] 00:00:00 Test Item Value Reference Range Interpretation Comments HEMOGLOBIN A1c (test code = 88999) 6.0 % LIPID [id number] 00:00:00 Test Item Value Reference Range Interpretation Comments CHOLESTEROL (test code = 2210) 124 MG/DL TRIGLYCERIDES (test code = 2232) 69 MG/DL HDL CHOLESTEROL (test code = 2220) 39 MG/DL CALC LDL CHOL (test code = 2237) 70 MG/DL RISK RATIO LDL/HDL (test code = 1.79 RATIO 2238) LIPID [id number] 00:00:00 Test Item Value Reference Range Interpretation Comments CHOLESTEROL (test code = 2210) 124 MG/DL TRIGLYCERIDES (test code = 2232) 69 MG/DL HDL CHOLESTEROL (test code = 2220) 39 MG/DL CALC LDL CHOL (test code = 2237) 70 MG/DL RISK RATIO LDL/HDL (test code = 1.79 RATIO 2238) COMPREHENSIVE METABOLIC [id number] 00:00:00 Test Item Value Reference Range Interpretation Comments GLUCOSE (test code = 2217) 77 MG/DL BUN (test code = 2208) 8 MG/DL CREATININE (test code = 2214) 0.67 MG/DL eGFR (2020 CKD-EPI) (test 122 ML/MIN/1.73 code = 84796) CALC BUN/CREAT (test code = 12 RATIO [...] code = 2219) 92 U/L COMPREHENSIVE METABOLIC [id number] 00:00:00 Test Item Value Reference Range Interpretation Comments GLUCOSE (test code = 2217) 77 MG/DL BUN (test code = 2208) 8 MG/DL CREATININE (test code = 2214) 0.67 MG/DL eGFR (2020 CKD-EPI) (test 122 ML/MIN/1.73 code = 75907) CALC BUN/CREAT (test code = 12 RATIO [...] 2219) 92 U/L MR KNEE LEFT WO [id number] 21:23:01 Stable MRI with lateral patellar subluxation [...] reviewed this study and agree with the abovereport.[facility] 2020[facility]16 13:46:56 Large effusion. No fracture. EXAM: XR KNEE 3 VW LEFT HISTORY: new onset of instablity left knee with 2 falls in last 4 wks COMPARISON: None FINDINGS: Imaging of the left knee demonstrates a moderate si zed effusion. Alignmentis maintained. There is mild depression of the medial tibial plateau on thePAview. No fracture is appreciated. [facility], Radiant Results Inft User - 03/16/2020 8:48 AM CDTEXAM:XR KNEE 3 VW LEFTHISTORY:new onset of instablity left knee with 2 falls in last 4 wks COMPARISON:NoneFINDINGS: Imaging of the left knee demonstrates a moderate sized effusion. Alignmentis maintained. There is mild depression of the medial tibial plateau on thePA view. No fracture is appreciated.IMPRESSIONLarge effusion.No fracture.[facility] [place], [id number] 00:00:00 Test Item Value Reference Range Interpretation Comments HCG, QUANTITATIVE (test code = <5 MIU/ML 2506) HCG, [id number] 00:00:00 Test Item Value Reference Range Interpretation Comments HCG, QUANTITATIVE (test code = <5 MIU/ML 2506) HCG, [id number] 00:00:00 Test Item Value Reference Range Interpretation Comments HCG, QUANTITATIVE (test code = <5 MIU/ML 2506) HCG, [id number] 00:00:00 Test Item Value Reference Range Interpretation Comments HCG, QUANTITATIVE (test code = <5 MIU/ML 2506) HCG, [id number] 00:00:00 Test Item Value Reference Range Interpretation Comments HCG, QUANTITATIVE (test code = <5 MIU/ML 2506) HCG, [id number] 00:00:00 Test Item Value Reference Range Interpretation Comments HCG, QUANTITATIVE (test code = <5 MIU/ML 2506) HCG, [id number] 00:00:00 Test Item Value Reference Range Interpretation Comments HCG, QUANTITATIVE (test code = <5 MIU/ML 2506) HCG, [id number] 00:00:00 Test Item Value Reference Range Interpretation Comments HCG, QUANTITATIVE (test code = <5 MIU/ML 2506) HCG, [id number] 00:00:00 Test Item Value Reference Range Interpretation Comments HCG, QUANTITATIVE (test code = <5 MIU/ML 2506) HCG, [id number] 00:00:00 Test Item Value Reference Range Interpretation Comments HCG, QUANTITATIVE (test TEST NOT PERFORMED code = 2506) MIU/ML HCG, [id number] 00:00:00 Test Item Value Reference Range Interpretation Comments HCG, QUANTITATIVE (test TEST NOT PERFORMED code = 2506) MIU/ML HCG, [id number] 00:00:00 Test Item Value Reference Range Interpretation Comments HCG, QUANTITATIVE (test TEST NOT PERFORMED code = 2506) MIU/ML HCG, [id number] 00:00:00 Test Item Value Reference Range Interpretation Comments HCG, QUANTITATIVE (test TEST NOT PERFORMED code = 2506) MIU/ML HCG, [id number] 00:00:00 Test Item Value Reference Range Interpretation Comments HCG, QUANTITATIVE (test TEST NOT PERFORMED code = 2506) MIU/ML HCG, [id number] 00:00:00 Test Item Value Reference Range Interpretation Comments HCG, QUANTITATIVE (test TEST NOT PERFORMED code = 2506) MIU/ML HCG, [id number] 00:00:00 Test Item Value Reference Range Interpretation Comments HCG, QUANTITATIVE (test TEST NOT PERFORMED code = 2506) MIU/ML HCG, [id number] 00:00:00 Test Item Value Reference Range Interpretation Comments HCG, QUANTITATIVE (test TEST NOT PERFORMED code = 2506) MIU/ML HCG, [id number] 00:00:00 Test Item Value Reference Range Interpretation Comments HCG, QUANTITATIVE (test TEST NOT PERFORMED code = 2506) MIU/ML CHLAMYDIA, AMPLIFIED, [id number] 00:00:00 Test Item Value Reference Range Interpretation Comments CHLAMYDIA, TMA (test code = 85486) NEGATIVE CHLAMYDIA, AMPLIFIED, [id number] 00:00:00 Test Item Value Reference Range Interpretation Comments CHLAMYDIA, TMA (test code = 51652) NEGATIVE GC, AMPLIFIED, [id number] 00:00:00 Test Item Value Reference Range Interpretation Comments GONORRHEA, TMA (test code = 44544) NEGATIVE GC, AMPLIFIED, [id number] 00:00:00 Test Item Value Reference Range Interpretation Comments GONORRHEA, TMA (test code = 66341) NEGATIVE CHLAMYDIA, AMPLIFIED, [id number] 00:00:00 Test Item Value Reference Range Interpretation Comments CHLAMYDIA, TMA (test code = 55132) NEGATIVE CHLAMYDIA, AMPLIFIED, [id number] 00:00:00 Test Item Value Reference Range Interpretation Comments CHLAMYDIA, TMA (test code = 59290) NEGATIVE GC, AMPLIFIED, [id number] 00:00:00 Test Item Value Reference Range Interpretation Comments GONORRHEA, TMA (test code = 89863) NEGATIVE GC, AMPLIFIED, [id number] 00:00:00 Test Item Value Reference Range Interpretation Comments GONORRHEA, TMA (test code = 20751) NEGATIVE CHLAMYDIA, AMPLIFIED, [id number] 00:00:00 Test Item Value Reference Range Interpretation Comments CHLAMYDIA, TMA (test code = 67866) NEGATIVE CHLAMYDIA, AMPLIFIED, [id number] 00:00:00 Test Item Value Reference Range Interpretation Comments CHLAMYDIA, TMA (test code = 39703) NEGATIVE GC, AMPLIFIED, [id number] 00:00:00 Test Item Value Reference Range Interpretation Comments GONORRHEA, TMA (test code = 12991) NEGATIVE GC, AMPLIFIED, [id number] 00:00:00 Test Item Value Reference Range Interpretation Comments GONORRHEA, TMA (test code = 38954) NEGATIVE HIV AB/AG COMBO RFLX [id number] 00:00:00 Test Item Value Reference Range Interpretation Comments HIV 1/2 4TH GEN, RFLX CONF (test NON-REACTIVE code = 3514) HIV AB/AG COMBO RFLX [id number] 00:00:00 Test Item Value Reference Range Interpretation Comments HIV 1/2 4TH GEN, RFLX CONF (test NON-REACTIVE code = 3514) ACUTE HEPATITIS [id number] 00:00:00 Test Item Value Reference Range Interpretation Comments HEPATITIS A IgM (test code = NON-REACTIVE 32383) HEPATITIS B CORE IgM (test code NON-REACTIVE = 7944) HEPATITIS B SURF AG (test code = NON-REACTIVE 4899) HEPATITIS C ANTIBODY (test code NON-REACTIVE = 4675) INTERPRETATION HEPATITIS A: (NOTE) (test code = 2552) INTERPRETATION HEPATITIS B: (NOTE) (test code = 69566) INTERPRETATION HEPATITIS C: (NOTE) (test code = 91832) ACUTE HEPATITIS [id number] 00:00:00 Test Item Value Reference Range Interpretation Comments HEPATITIS A IgM (test code = NON-REACTIVE 91836) HEPATITIS B CORE IgM (test code NON-REACTIVE = 4644) HEPATITIS B SURF AG (test code = NON-REACTIVE 2739) HEPATITIS C ANTIBODY (test code NON-REACTIVE = 4675) INTERPRETATION HEPATITIS A: (NOTE) (test code = 2552) INTERPRETATION HEPATITIS B: (NOTE) (test code = 77100) INTERPRETATION HEPATITIS C: (NOTE) (test code = 04515) [id number] 00:00:00 Test Item Value Reference Range Interpretation Comments RPR RESULT (test code = NON-REACTIVE 3501) RPR TITER (test code = 3500) NOT INDIC. TITER [id number] 00:00:00 Test Item Value Reference Range Interpretation Comments RPR RESULT (test code = NON-REACTIVE 3501) RPR TITER (test code = 3500) NOT INDIC. TITER [id number] 00:00:00 Test Item Value Reference Range Interpretation Comments RPR RESULT (test code = NON-REACTIVE 3501) RPR TITER (test code = 3500) NOT INDIC. TITER HIV AB/AG COMBO RFLX [id number] 00:00:00 Test Item Value Reference Range Interpretation Comments HIV 1/2 4TH GEN, RFLX CONF (test NON-REACTIVE code = 3514) HIV AB/AG COMBO RFLX [id number] 00:00:00 Test Item Value Reference Range Interpretation Comments HIV 1/2 4TH GEN, RFLX CONF (test NON-REACTIVE code = 3514) HIV AB/AG COMBO RFLX [id number] 00:00:00 Test Item Value Reference Range Interpretation Comments HIV 1/2 4TH GEN, RFLX CONF (test NON-REACTIVE code = 3514) ACUTE HEPATITIS [id number] 00:00:00 Test Item Value Reference Range Interpretation Comments HEPATITIS A IgM (test code = NON-REACTIVE 57777) HEPATITIS B CORE IgM (test code NON-REACTIVE = 4644) HEPATITIS B SURF AG (test code = NON-REACTIVE 2739) HEPATITIS C ANTIBODY (test code NON-REACTIVE = 4675) INTERPRETATION HEPATITIS A: (NOTE) (test code = 2552) INTERPRETATION HEPATITIS B: (NOTE) (test code = 33185) INTERPRETATION HEPATITIS C: (NOTE) (test code = 76275) ACUTE HEPATITIS [id number] 00:00:00 Test Item Value Reference Range Interpretation Comments HEPATITIS A IgM (test code = NON-REACTIVE 98475) HEPATITIS B CORE IgM (test code NON-REACTIVE = 4644) HEPATITIS B SURF AG (test code = NON-REACTIVE 2739) HEPATITIS C ANTIBODY (test code NON-REACTIVE = 4675) INTERPRETATION HEPATITIS A: (NOTE) (test code = 2552) INTERPRETATION HEPATITIS B: (NOTE) (test code = 66117) INTERPRETATION HEPATITIS C: (NOTE) (test code = 71950) [id number] 00:00:00 Test Item Value Reference Range Interpretation Comments RPR RESULT (test code = NON-REACTIVE 3501) RPR TITER (test code = 3500) NOT INDIC. TITER [id number] 00:00:00 Test Item Value Reference Range Interpretation Comments RPR RESULT (test code = NON-REACTIVE 3501) RPR TITER (test code = 3500) NOT INDIC. TITER [id number] 00:00:00 Test Item Value Reference Range Interpretation Comments RPR RESULT (test code = NON-REACTIVE 3501) RPR TITER (test code = 3500) NOT INDIC. TITER HIV AB/AG COMBO RFLX [id number] 00:00:00 Test Item Value Reference Range Interpretation Comments HIV 1/2 4TH GEN, RFLX CONF (test NON-REACTIVE code = 3514) ACUTE HEPATITIS [id number] 00:00:00 Test Item Value Reference Range Interpretation Comments HEPATITIS A IgM (test code = NON-REACTIVE 29437) HEPATITIS B CORE IgM (test code NON-REACTIVE = 4644) HEPATITIS B SURF AG (test code = NON-REACTIVE 2739) HEPATITIS C ANTIBODY (test code NON-REACTIVE = 4675) INTERPRETATION HEPATITIS A: (NOTE) (test code = 2552) INTERPRETATION HEPATITIS B: (NOTE) (test code = 54988) INTERPRETATION HEPATITIS C: (NOTE) (test code = 91444) ACUTE HEPATITIS [id number] 00:00:00 Test Item Value Reference Range Interpretation Comments HEPATITIS A IgM (test code = NON-REACTIVE 50322) HEPATITIS B CORE IgM (test code NON-REACTIVE = 4644) HEPATITIS B SURF AG (test code = NON-REACTIVE 2739) HEPATITIS C ANTIBODY (test code NON-REACTIVE = 4675) INTERPRETATION HEPATITIS A: (NOTE) (test code = 2552) INTERPRETATION HEPATITIS B: (NOTE) (test code = 13939) INTERPRETATION HEPATITIS C: (NOTE) (test code = 32188) [id number] 00:00:00 Test Item Value Reference Range Interpretation Comments RPR RESULT (test code = NON-REACTIVE 3501) RPR TITER (test code = 3500) NOT INDIC. TITER [id number] 00:00:00 Test Item Value Reference Range Interpretation Comments RPR RESULT (test code = NON-REACTIVE 3501) RPR TITER (test code = 3500) NOT INDIC. TITER [id number] 00:00:00 Test Item Value Reference Range Interpretation Comments RPR RESULT (test code = NON-REACTIVE 3501) RPR TITER (test code = 3500) NOT INDIC. TITER HIV AB/AG COMBO RFLX [id number] 00:00:00 Test Item Value Reference Range Interpretation Comments HIV 1/2 4TH GEN, RFLX CONF (test NON-REACTIVE code = 3514) HIV AB/AG COMBO RFLX [id number] 00:00:00 Test Item Value Reference Range Interpretation Comments HIV 1/2 4TH GEN, RFLX CONF (test NON-REACTIVE code = 3514) ACUTE HEPATITIS [id number] 00:00:00 Test Item Value Reference Range Interpretation Comments HEPATITIS A IgM (test code = NON-REACTIVE 98265) HEPATITIS B CORE IgM (test code NON-REACTIVE = 4644) HEPATITIS B SURF AG (test code = NON-REACTIVE 2739) HEPATITIS C ANTIBODY (test code NON-REACTIVE = 4675) HCV INDEX (test code = 41461) 0.13 INTERPRETATION HEPATITIS A: (NOTE) (test code = 2552) INTERPRETATION HEPATITIS B: (NOTE) (test code = 83379) INTERPRETATION HEPATITIS C: (NOTE) (test code = 38817) ACUTE HEPATITIS [id number] 00:00:00 Test Item Value Reference Range Interpretation Comments HEPATITIS A IgM (test code = NON-REACTIVE 56960) HEPATITIS B CORE IgM (test code NON-REACTIVE = 4644) HEPATITIS B SURF AG (test code = NON-REACTIVE 2739) HEPATITIS C ANTIBODY (test code NON-REACTIVE = 4675) HCV INDEX (test code = 81386) 0.13 INTERPRETATION HEPATITIS A: (NOTE) (test code = 2552) INTERPRETATION HEPATITIS B: (NOTE) (test code = 85357) INTERPRETATION HEPATITIS C: (NOTE) (test code = 03615) GC AND CHLAMYDIA, AMPLIFIED, [id number] 00:00:00 Test Item Value Reference Range Interpretation Comments GONORRHEA, TMA (test code = 55578) NEGATIVE CHLAMYDIA, TMA (test code = 51801) NEGATIVE GC AND CHLAMYDIA, AMPLIFIED, [id number] 00:00:00 Test Item Value Reference Range Interpretation Comments GONORRHEA, TMA (test code = 50658) NEGATIVE CHLAMYDIA, TMA (test code = 91336) NEGATIVE [id number] 00:00:00 Test Item Value Reference Range Interpretation Comments RPR RESULT (test code = NON-REACTIVE 3501) RPR TITER (test code = 3500) NOT INDIC. TITER [id number] 00:00:00 Test Item Value Reference Range Interpretation Comments RPR RESULT (test code = NON-REACTIVE 3501) RPR TITER (test code = 3500) NOT INDIC. TITER [id number] 00:00:00 Test Item Value Reference Range Interpretation Comments RPR RESULT (test code = NON-REACTIVE 3501) RPR TITER (test code = 3500) NOT INDIC. TITER HIV AB/AG COMBO RFLX [id number] 00:00:00 Test Item Value Reference Range Interpretation Comments HIV 1/2 4TH GEN, RFLX CONF (test NON-REACTIVE code = 3514) HIV AB/AG COMBO RFLX [id number] 00:00:00 Test Item Value Reference Range Interpretation Comments HIV 1/2 4TH GEN, RFLX CONF (test NON-REACTIVE code = 3514) HIV AB/AG COMBO RFLX [id number] 00:00:00 Test Item Value Reference Range Interpretation Comments HIV 1/2 4TH GEN, RFLX CONF (test NON-REACTIVE code = 3514) ACUTE HEPATITIS [id number] 00:00:00 Test Item Value Reference Range Interpretation Comments HEPATITIS A IgM (test code = NON-REACTIVE 41315) HEPATITIS B CORE IgM (test code NON-REACTIVE = 4644) HEPATITIS B SURF AG (test code = NON-REACTIVE 2739) HEPATITIS C ANTIBODY (test code NON-REACTIVE = 4675) HCV INDEX (test code = 70881) 0.13 INTERPRETATION HEPATITIS A: (NOTE) (test code = 2552) INTERPRETATION HEPATITIS B: (NOTE) (test code = 41566) INTERPRETATION HEPATITIS C: (NOTE) (test code = 86175) ACUTE HEPATITIS [id number] 00:00:00 Test Item Value Reference Range Interpretation Comments HEPATITIS A IgM (test code = NON-REACTIVE 26228) HEPATITIS B CORE IgM (test code NON-REACTIVE = 4644) HEPATITIS B SURF AG (test code = NON-REACTIVE 2739) HEPATITIS C ANTIBODY (test code NON-REACTIVE = 4675) HCV INDEX (test code = 42557) 0.13 INTERPRETATION HEPATITIS A: (NOTE) (test code = 2552) INTERPRETATION HEPATITIS B: (NOTE) (test code = 98355) INTERPRETATION HEPATITIS C: (NOTE) (test code = 12540) HIV AB/AG COMBO RFLX [id number] 00:00:00 Test Item Value Reference Range Interpretation Comments HIV 1/2 4TH GEN, RFLX CONF (test NON-REACTIVE code = 3514) GC AND CHLAMYDIA, AMPLIFIED, [id number] 00:00:00 Test Item Value Reference Range Interpretation Comments GONORRHEA, TMA (test code = 48833) NEGATIVE CHLAMYDIA, TMA (test code = 62076) NEGATIVE GC AND CHLAMYDIA, AMPLIFIED, [id number] 00:00:00 Test Item Value Reference Range Interpretation Comments GONORRHEA, TMA (test code = 92553) NEGATIVE CHLAMYDIA, TMA (test code = 83296) NEGATIVE [id number] 00:00:00 Test Item Value Reference Range Interpretation Comments RPR RESULT (test code = NON-REACTIVE 3501) RPR TITER (test code = 3500) NOT INDIC. TITER [id number] 00:00:00 Test Item Value Reference Range Interpretation Comments RPR RESULT (test code = NON-REACTIVE 3501) RPR TITER (test code = 3500) NOT INDIC. TITER [id number] 00:00:00 Test Item Value Reference Range Interpretation Comments RPR RESULT (test code = NON-REACTIVE 3501) RPR TITER (test code = 3500) NOT INDIC. TITER ACUTE HEPATITIS [id number] 00:00:00 Test Item Value Reference Range Interpretation Comments HEPATITIS A IgM (test code = NON-REACTIVE 22718) HEPATITIS B CORE IgM (test code NON-REACTIVE = 4644) HEPATITIS B SURF AG (test code = NON-REACTIVE 2739) HEPATITIS C ANTIBODY (test code NON-REACTIVE = 4675) HCV INDEX (test code = 72033) 0.13 INTERPRETATION HEPATITIS A: (NOTE) (test code = 2552) INTERPRETATION HEPATITIS B: (NOTE) (test code = 66024) INTERPRETATION HEPATITIS C: (NOTE) (test code = 49956) ACUTE HEPATITIS [id number] 00:00:00 Test Item Value Reference Range Interpretation Comments HEPATITIS A IgM (test code = NON-REACTIVE 92886) HEPATITIS B CORE IgM (test code NON-REACTIVE = 4644) HEPATITIS B SURF AG (test code = NON-REACTIVE 2739) HEPATITIS C ANTIBODY (test code NON-REACTIVE = 4675) HCV INDEX (test code = 60213) 0.13 INTERPRETATION HEPATITIS A: (NOTE) (test code = 2552) INTERPRETATION HEPATITIS B: (NOTE) (test code = 52590) INTERPRETATION HEPATITIS C: (NOTE) (test code = 73060) GC AND CHLAMYDIA, AMPLIFIED, [id number] 00:00:00 Test Item Value Reference Range Interpretation Comments GONORRHEA, TMA (test code = 55935) NEGATIVE CHLAMYDIA, TMA (test code = 84820) NEGATIVE GC AND CHLAMYDIA, AMPLIFIED, [id number] 00:00:00 Test Item Value Reference Range Interpretation Comments GONORRHEA, TMA (test code = 78250) NEGATIVE CHLAMYDIA, TMA (test code = 70812) NEGATIVE [id number] 00:00:00 Test Item Value Reference Range Interpretation Comments RPR RESULT (test code = NON-REACTIVE 3501) RPR TITER (test code = 3500) NOT INDIC. TITER [id number] 00:00:00 Test Item Value Reference Range Interpretation Comments RPR RESULT (test code = NON-REACTIVE 3501) RPR TITER (test code = 3500) NOT INDIC. TITER [id number] 00:00:00 Test Item Value Reference Range Interpretation Comments RPR RESULT (test code = NON-REACTIVE 3501) RPR TITER (test code = 3500) NOT INDIC. TITER [id number] 00:00:00 Test Item Value Reference Range Interpretation Comments RPR RESULT (test code = NON-REACTIVE 3501) RPR TITER (test code = 3500) NOT INDIC. TITER [id number] 00:00:00 Test Item Value Reference Range Interpretation Comments RPR RESULT (test code = NON-REACTIVE 3501) RPR TITER (test code = 3500) NOT INDIC. TITER [id number] 00:00:00 Test Item Value Reference Range Interpretation Comments RPR RESULT (test code = NON-REACTIVE 3501) RPR TITER (test code = 3500) NOT INDIC. TITER HIV AB/AG COMBO RFLX [id number] 00:00:00 Test Item Value Reference Range Interpretation Comments HIV 1/2 4TH GEN, RFLX CONF (test NON-REACTIVE code = 3514) HIV AB/AG COMBO RFLX [id number] 00:00:00 Test Item Value Reference Range Interpretation Comments HIV 1/2 4TH GEN, RFLX CONF (test NON-REACTIVE code = 3514) [id number] 00:00:00 Test Item Value Reference Range Interpretation Comments RPR RESULT (test code = NON-REACTIVE 3501) RPR TITER (test code = 3500) NOT INDIC. TITER [id number] 00:00:00 Test Item Value Reference Range Interpretation Comments RPR RESULT (test code = NON-REACTIVE 3501) RPR TITER (test code = 3500) NOT INDIC. TITER [id number] 00:00:00 Test Item Value Reference Range Interpretation Comments RPR RESULT (test code = NON-REACTIVE 3501) RPR TITER (test code = 3500) NOT INDIC. TITER [id number] 00:00:00 Test Item Value Reference Range Interpretation Comments RPR RESULT (test code = NON-REACTIVE 3501) RPR TITER (test code = 3500) NOT INDIC. TITER HIV AB/AG COMBO RFLX [id number] 00:00:00 Test Item Value Reference Range Interpretation Comments HIV 1/2 4TH GEN, RFLX CONF (test NON-REACTIVE code = 3514) HIV AB/AG COMBO RFLX [id number] 00:00:00 Test Item Value Reference Range Interpretation Comments HIV 1/2 4TH GEN, RFLX CONF (test NON-REACTIVE code = 3514) [id number] 00:00:00 Test Item Value Reference Range Interpretation Comments RPR RESULT (test code = NON-REACTIVE 3501) RPR TITER (test code = 3500) NOT INDIC. TITER [id number] 00:00:00 Test Item Value Reference Range Interpretation Comments RPR RESULT (test code = NON-REACTIVE 3501) RPR TITER (test code = 3500) NOT INDIC. TITER HIV AB/AG COMBO RFLX [id number] 00:00:00 Test Item Value Reference Range Interpretation Comments HIV 1/2 4TH GEN, RFLX CONF (test NON-REACTIVE code = 3514) HIV AB/AG COMBO RFLX [id number] 00:00:00 Test Item Value Reference Range Interpretation Comments HIV 1/2 4TH GEN, RFLX CONF (test NON-REACTIVE code = 3514) GC AND CHLAMYDIA, AMPLIFIED, [id number] 00:00:00 Test Item Value Reference Range Interpretation Comments GONORRHEA, TMA (test code = 60120) NEGATIVE CHLAMYDIA, TMA (test code = 15911) NEGATIVE GC AND CHLAMYDIA, AMPLIFIED, [id number] 00:00:00 Test Item Value Reference Range Interpretation Comments GONORRHEA, TMA (test code = 59305) NEGATIVE CHLAMYDIA, TMA (test code = 94770) NEGATIVE GC AND CHLAMYDIA, AMPLIFIED, [id number] 00:00:00 Test Item Value Reference Range Interpretation Comments GONORRHEA, TMA (test code = 59380) NEGATIVE CHLAMYDIA, TMA (test code = 34531) NEGATIVE GC AND CHLAMYDIA, AMPLIFIED, [id number] 00:00:00 Test Item Value Reference Range Interpretation Comments GONORRHEA, TMA (test code = 39642) NEGATIVE CHLAMYDIA, TMA (test code = 38738) NEGATIVE GC AND CHLAMYDIA, AMPLIFIED, [id number] 00:00:00 Test Item Value Reference Range Interpretation Comments GONORRHEA, TMA (test code = 26069) NEGATIVE CHLAMYDIA, TMA (test code = 98267) NEGATIVE GC AND CHLAMYDIA, AMPLIFIED, [id number] 00:00:00 Test Item Value Reference Range Interpretation Comments GONORRHEA, TMA (test code = 99344) NEGATIVE CHLAMYDIA, TMA (test code = 34464) NEGATIVE COMPREHENSIVE METABOLIC [id number] 00:00:00 Test Item Value Reference Range Interpretation Comments GLUCOSE (test code = 2217) 127 MG/DL BUN (test code = 2208) 5 MG/DL CREATININE (test code = 2214) 0.58 MG/DL eGFR AMER. (test code 148 ML/MIN/1.73 = 79603) eGFR NON- AMER. (test 128 ML/MIN/1.73 code = 31581) CALC BUN/CREAT (test code = 9 RATIO [...] code = 2219) 18 U/L COMPREHENSIVE METABOLIC [id number] 00:00:00 Test Item Value Reference Range Interpretation Comments GLUCOSE (test code = 2217) 127 MG/DL BUN (test code = 2208) 5 MG/DL CREATININE (test code = 2214) 0.58 MG/DL eGFR AMER. (test code 148 ML/MIN/1.73 = 18897) eGFR NON- AMER. (test 128 ML/MIN/1.73 code = 88270) CALC BUN/CREAT (test code = 9 RATIO [...] (test code = 2219) 18 U/L LIPID [id number] 00:00:00 Test Item Value Reference Range Interpretation Comments CHOLESTEROL (test code = 2210) 186 MG/DL TRIGLYCERIDES (test code = 2232) 106 MG/DL HDL CHOLESTEROL (test code = 2220) 54 MG/DL CALC LDL CHOL (test code = 2237) 111 MG/DL RISK RATIO LDL/HDL (test code = 2.05 RATIO 2238) LIPID [id number] 00:00:00 Test Item Value Reference Range Interpretation Comments CHOLESTEROL (test code = 2210) 186 MG/DL TRIGLYCERIDES (test code = 2232) 106 MG/DL HDL CHOLESTEROL (test code = 2220) 54 MG/DL CALC LDL CHOL (test code = 2237) 111 MG/DL RISK RATIO LDL/HDL (test code = 2.05 RATIO 2238) COMPREHENSIVE METABOLIC [id number] 00:00:00 Test Item Value Reference Range Interpretation Comments GLUCOSE (test code = 2217) 127 MG/DL BUN (test code = 2208) 5 MG/DL CREATININE (test code = 2214) 0.58 MG/DL eGFR AMER. (test code 148 ML/MIN/1.73 = 98482) eGFR NON- AMER. (test 128 ML/MIN/1.73 code = 56786) CALC BUN/CREAT (test code = 9 RATIO [...] code = 2219) 18 U/L COMPREHENSIVE METABOLIC [id number] 00:00:00 Test Item Value Reference Range Interpretation Comments GLUCOSE (test code = 2217) 127 MG/DL BUN (test code = 2208) 5 MG/DL CREATININE (test code = 2214) 0.58 MG/DL eGFR AMER. (test code 148 ML/MIN/1.73 = 31237) eGFR NON- AMER. (test 128 ML/MIN/1.73 code = 35780) CALC BUN/CREAT (test code = 9 RATIO [...] code = 2219) 18 U/L COMPREHENSIVE METABOLIC [id number] 00:00:00 Test Item Value Reference Range Interpretation Comments GLUCOSE (test code = 2217) 127 MG/DL BUN (test code = 2208) 5 MG/DL CREATININE (test code = 2214) 0.58 MG/DL eGFR AMER. (test code 148 ML/MIN/1.73 = 83686) eGFR NON- AMER. (test 128 ML/MIN/1.73 code = 60600) CALC BUN/CREAT (test code = 9 RATIO [...] (test code = 2219) 18 U/L LIPID [id number] 00:00:00 Test Item Value Reference Range Interpretation Comments CHOLESTEROL (test code = 2210) 186 MG/DL TRIGLYCERIDES (test code = 2232) 106 MG/DL HDL CHOLESTEROL (test code = 2220) 54 MG/DL CALC LDL CHOL (test code = 2237) 111 MG/DL RISK RATIO LDL/HDL (test code = 2.05 RATIO 2238) LIPID [id number] 00:00:00 Test Item Value Reference Range Interpretation Comments CHOLESTEROL (test code = 2210) 186 MG/DL TRIGLYCERIDES (test code = 2232) 106 MG/DL HDL CHOLESTEROL (test code = 2220) 54 MG/DL CALC LDL CHOL (test code = 2237) 111 MG/DL RISK RATIO LDL/HDL (test code = 2.05 RATIO 2238) COMPREHENSIVE METABOLIC [id number] 00:00:00 Test Item Value Reference Range Interpretation Comments GLUCOSE (test code = 2217) 127 MG/DL BUN (test code = 2208) 5 MG/DL CREATININE (test code = 2214) 0.58 MG/DL eGFR AMER. (test code 148 ML/MIN/1.73 = 25244) eGFR NON- AMER. (test 128 ML/MIN/1.73 code = 08963) CALC BUN/CREAT (test code = 9 RATIO [...] (test code = 2219) 18 U/L LIPID [id number] 00:00:00 Test Item Value Reference Range Interpretation Comments CHOLESTEROL (test code = 2210) 186 MG/DL TRIGLYCERIDES (test code = 2232) 106 MG/DL HDL CHOLESTEROL (test code = 2220) 54 MG/DL CALC LDL CHOL (test code = 2237) 111 MG/DL RISK RATIO LDL/HDL (test code = 2.05 RATIO 2238) LIPID [id number] 00:00:00 Test Item Value Reference Range Interpretation Comments CHOLESTEROL (test code = 2210) 186 MG/DL TRIGLYCERIDES (test code = 2232) 106 MG/DL HDL CHOLESTEROL (test code = 2220) 54 MG/DL CALC LDL CHOL (test code = 2237) 111 MG/DL RISK RATIO LDL/HDL (test code = 2.05 RATIO 2238) GC AND CHLAMYDIA, AMPLIFIED, [id number] 00:00:00 Test Item Value Reference Range Interpretation Comments GONORRHEA, TMA (test code = 25814) NEGATIVE CHLAMYDIA, TMA (test code = 39257) NEGATIVE GC AND CHLAMYDIA, AMPLIFIED, [id number] 00:00:00 Test Item Value Reference Range Interpretation Comments GONORRHEA, TMA (test code = 59361) NEGATIVE CHLAMYDIA, TMA (test code = 78114) NEGATIVE GC AND CHLAMYDIA, AMPLIFIED, [id number] 00:00:00 Test Item Value Reference Range Interpretation Comments GONORRHEA, TMA (test code = 29150) NEGATIVE CHLAMYDIA, TMA (test code = 15378) NEGATIVE GC AND CHLAMYDIA, AMPLIFIED, [id number] 00:00:00 Test Item Value Reference Range Interpretation Comments GONORRHEA, TMA (test code = 50601) NEGATIVE CHLAMYDIA, TMA (test code = 87262) NEGATIVE GC AND CHLAMYDIA, AMPLIFIED, [id number] 00:00:00 Test Item Value Reference Range Interpretation Comments GONORRHEA, TMA (test code = 52063) NEGATIVE CHLAMYDIA, TMA (test code = 66867) NEGATIVE GC AND CHLAMYDIA, AMPLIFIED, [id number] 00:00:00 Test Item Value Reference Range Interpretation Comments GONORRHEA, TMA (test code = 62916) NEGATIVE CHLAMYDIA, TMA (test code = 99542) NEGATIVE VAGINAL PATHOGENS DNA [id number] 00:00:00 Test Item Value Reference Range Interpretation Comments YOKO SPECIES (test code = 13576) POSITIVE G. VAGINALIS (test code = 59125) NEGATIVE T. VAGINALIS (test code = 19987) NEGATIVE VAGINAL PATHOGENS DNA [id number] 00:00:00 Test Item Value Reference Range Interpretation Comments YOKO SPECIES (test code = 97802) POSITIVE G. VAGINALIS (test code = 51502) NEGATIVE T. VAGINALIS (test code = 37622) NEGATIVE VAGINAL PATHOGENS DNA [id number] 00:00:00 Test Item Value Reference Range Interpretation Comments YOKO SPECIES (test code = 97355) POSITIVE G. VAGINALIS (test code = 44660) NEGATIVE T. VAGINALIS (test code = 69072) NEGATIVE VAGINAL PATHOGENS DNA [id number] 00:00:00 Test Item Value Reference Range Interpretation Comments YOKO SPECIES (test code = 37942) POSITIVE G. VAGINALIS (test code = 50021) NEGATIVE T. VAGINALIS (test code = 97697) NEGATIVE VAGINAL PATHOGENS DNA [id number] 00:00:00 Test Item Value Reference Range Interpretation Comments YOKO SPECIES (test code = 32122) POSITIVE G. VAGINALIS (test code = 04703) NEGATIVE T. VAGINALIS (test code = 44382) NEGATIVE VAGINAL PATHOGENS DNA [id number] 00:00:00 Test Item Value Reference Range Interpretation Comments YOKO SPECIES (test code = 22322) POSITIVE G. VAGINALIS (test code = 66515) NEGATIVE T. VAGINALIS (test code = 99252) NEGATIVE GC AND CHLAMYDIA, AMPLIFIED, [id number] 00:00:00 Test Item Value Reference Range Interpretation Comments GONORRHEA, TMA (test code = 55620) NEGATIVE CHLAMYDIA, TMA (test code = 49085) NEGATIVE GC AND CHLAMYDIA, AMPLIFIED, [id number] 00:00:00 Test Item Value Reference Range Interpretation Comments GONORRHEA, TMA (test code = 09707) NEGATIVE CHLAMYDIA, TMA (test code = 78066) NEGATIVE GC AND CHLAMYDIA, AMPLIFIED, [id number] 00:00:00 Test Item Value Reference Range Interpretation Comments GONORRHEA, TMA (test code = 75642) NEGATIVE CHLAMYDIA, TMA (test code = 93765) NEGATIVE GC AND CHLAMYDIA, AMPLIFIED, [id number] 00:00:00 Test Item Value Reference Range Interpretation Comments GONORRHEA, TMA (test code = 16090) NEGATIVE CHLAMYDIA, TMA (test code = 71354) NEGATIVE GC AND CHLAMYDIA, AMPLIFIED, [id number] 00:00:00 Test Item Value Reference Range Interpretation Comments GONORRHEA, TMA (test code = 83741) NEGATIVE CHLAMYDIA, TMA (test code = 43093) NEGATIVE GC AND CHLAMYDIA, AMPLIFIED, [id number] 00:00:00 Test Item Value Reference Range Interpretation Comments GONORRHEA, TMA (test code = 12227) NEGATIVE CHLAMYDIA, TMA (test code = 04921) NEGATIVE CULTURE, [id number] 00:00:00 Test Item Value Reference Range Interpretation Comments CULTURE, URINE (test SPECIMEN NUMBER: code = 65927) [id number] CULTURE, [id number] 00:00:00 Test Item Value Reference Range Interpretation Comments CULTURE, URINE (test SPECIMEN NUMBER: code = 57718) [id number] CULTURE, [id number] 00:00:00 Test Item Value Reference Range Interpretation Comments CULTURE, URINE (test SPECIMEN NUMBER: code = 71161) [id number] CULTURE, [id number] 00:00:00 Test Item Value Reference Range Interpretation Comments CULTURE, URINE (test SPECIMEN NUMBER: code = 03477) [id number] CULTURE, [id number] 00:00:00 Test Item Value Reference Range Interpretation Comments CULTURE, URINE (test SPECIMEN NUMBER: code = 77431) [id number] CULTURE, [id number] 00:00:00 Test Item Value Reference Range Interpretation Comments CULTURE, URINE (test SPECIMEN NUMBER: code = 19950) [id number] HEMOGLOBIN [id number] 00:00:00 Test Item Value Reference Range Interpretation Comments HEMOGLOBIN A1c (test code = 92752) 5.5 % HEMOGLOBIN [id number] 00:00:00 Test Item Value Reference Range Interpretation Comments HEMOGLOBIN A1c (test code = 49165) 5.5 % HEMOGLOBIN [id number] 00:00:00 Test Item Value Reference Range Interpretation Comments HEMOGLOBIN A1c (test code = 59489) 5.5 % CBC W/AUTO [id number] 00:00:00 Test Item Value Reference Range Interpretation [...] code = 1015) 310 K/UL CBC W/AUTO [id number] 00:00:00 Test Item Value Reference Range Interpretation [...] code = 1015) 310 K/UL CBC W/AUTO [id number] 00:00:00 Test Item Value Reference Range Interpretation [...] code = 1015) 310 K/UL COMPREHENSIVE METABOLIC [id number] 00:00:00 Test Item Value Reference Range Interpretation Comments GLUCOSE (test code = 2217) 73 MG/DL BUN (test code = 2208) 10 MG/DL CREATININE (test code = 2214) 0.51 MG/DL eGFR AMER. (test code 158 ML/MIN/1.73 = 80149) eGFR NON- AMER. (test 136 ML/MIN/1.73 code = 68249) CALCULATED BUN/CREAT (test 20 RATIO code = [...] code = 2219) 23 U/L COMPREHENSIVE METABOLIC [id number] 00:00:00 Test Item Value Reference Range Interpretation Comments GLUCOSE (test code = 2217) 73 MG/DL BUN (test code = 2208) 10 MG/DL CREATININE (test code = 2214) 0.51 MG/DL eGFR AMER. (test code 158 ML/MIN/1.73 = 45395) eGFR NON- AMER. (test 136 ML/MIN/1.73 code = 59701) CALCULATED BUN/CREAT (test 20 RATIO code = [...] (test code = 2219) 23 U/L LIPID [id number] 00:00:00 Test Item Value Reference Range Interpretation Comments CHOLESTEROL (test code = 2210) 167 MG/DL TRIGLYCERIDES (test code = 2232) 109 MG/DL HDL CHOLESTEROL (test code = 2220) 58 MG/DL CALCULATED LDL CHOL (test code = 87 MG/DL 2237) RISK RATIO LDL/HDL (test code = 1.50 RATIO 2238) LIPID [id number] 00:00:00 Test Item Value Reference Range Interpretation [...] (test code = 2821) 1.5 UIU/ML HEMOGLOBIN [id number] 00:00:00 Test Item Value Reference Range Interpretation Comments HEMOGLOBIN A1c (test code = 82166) 5.5 % HEMOGLOBIN [id number] 00:00:00 Test Item Value Reference Range Interpretation Comments HEMOGLOBIN A1c (test code = 09642) 5.5 % HEMOGLOBIN [id number] 00:00:00 Test Item Value Reference Range Interpretation Comments HEMOGLOBIN A1c (test code = 72665) 5.5 % HEMOGLOBIN [id number] 00:00:00 Test Item Value Reference Range Interpretation Comments HEMOGLOBIN A1c (test code = 46118) 5.5 % HEMOGLOBIN [id number] 00:00:00 Test Item Value Reference Range Interpretation Comments HEMOGLOBIN A1c (test code = 40595) 5.5 % CBC W/AUTO [id number] 00:00:00 Test Item Value Reference Range Interpretation [...] code = 1015) 310 K/UL CBC W/AUTO [id number] 00:00:00 Test Item Value Reference Range Interpretation [...] code = 1015) 310 K/UL CBC W/AUTO [id number] 00:00:00 Test Item Value Reference Range Interpretation [...] code = 1015) 310 K/UL COMPREHENSIVE METABOLIC [id number] 00:00:00 Test Item Value Reference Range Interpretation Comments GLUCOSE (test code = 2217) 73 MG/DL BUN (test code = 2208) 10 MG/DL CREATININE (test code = 2214) 0.51 MG/DL eGFR AMER. (test code 158 ML/MIN/1.73 = 97089) eGFR NON- AMER. (test 136 ML/MIN/1.73 code = 78536) CALCULATED BUN/CREAT (test 20 RATIO code = [...] code = 2219) 23 U/L COMPREHENSIVE METABOLIC [id number] 00:00:00 Test Item Value Reference Range Interpretation Comments GLUCOSE (test code = 2217) 73 MG/DL BUN (test code = 2208) 10 MG/DL CREATININE (test code = 2214) 0.51 MG/DL eGFR AMER. (test code 158 ML/MIN/1.73 = 19074) eGFR NON- AMER. (test 136 ML/MIN/1.73 code = 26136) CALCULATED BUN/CREAT (test 20 RATIO code = [...] (test code = 2219) 23 U/L LIPID [id number] 00:00:00 Test Item Value Reference Range Interpretation Comments CHOLESTEROL (test code = 2210) 167 MG/DL TRIGLYCERIDES (test code = 2232) 109 MG/DL HDL CHOLESTEROL (test code = 2220) 58 MG/DL CALCULATED LDL CHOL (test code = 87 MG/DL 2237) RISK RATIO LDL/HDL (test code = 1.50 RATIO 2238) LIPID [id number] 00:00:00 Test Item Value Reference Range Interpretation [...] (test code = 2821) 1.5 UIU/ML HEMOGLOBIN [id number] 00:00:00 Test Item Value Reference Range Interpretation Comments HEMOGLOBIN A1c (test code = 77997) 5.5 % CBC W/AUTO [id number] 00:00:00 Test Item Value Reference Range Interpretation [...] code = 1015) 310 K/UL CBC W/AUTO [id number] 00:00:00 Test Item Value Reference Range Interpretation [...] code = 1015) 310 K/UL CBC W/AUTO [id number] 00:00:00 Test Item Value Reference Range Interpretation [...] code = 1015) 310 K/UL COMPREHENSIVE METABOLIC [id number] 00:00:00 Test Item Value Reference Range Interpretation Comments GLUCOSE (test code = 2217) 73 MG/DL BUN (test code = 2208) 10 MG/DL CREATININE (test code = 2214) 0.51 MG/DL eGFR AMER. (test code 158 ML/MIN/1.73 = 47844) eGFR NON- AMER. (test 136 ML/MIN/1.73 code = 57830) CALCULATED BUN/CREAT (test 20 RATIO code = [...] code = 2219) 23 U/L COMPREHENSIVE METABOLIC [id number] 00:00:00 Test Item Value Reference Range Interpretation Comments GLUCOSE (test code = 2217) 73 MG/DL BUN (test code = 2208) 10 MG/DL CREATININE (test code = 2214) 0.51 MG/DL eGFR AMER. (test code 158 ML/MIN/1.73 = 29822) eGFR NON- AMER. (test 136 ML/MIN/1.73 code = 95425) CALCULATED BUN/CREAT (test 20 RATIO code = [...] (test code = 2219) 23 U/L LIPID [id number] 00:00:00 Test Item Value Reference Range Interpretation Comments CHOLESTEROL (test code = 2210) 167 MG/DL TRIGLYCERIDES (test code = 2232) 109 MG/DL HDL CHOLESTEROL (test code = 2220) 58 MG/DL CALCULATED LDL CHOL (test code = 87 MG/DL 2237) RISK RATIO LDL/HDL (test code = 1.50 RATIO 2238) LIPID [id number] 00:00:00 Test Item Value Reference Range Interpretation [...]
[2023-02-11] MEDS ORDERED: MAGNES/ALUMIN/SIMET 30ML UCUP ONE (23:43)
[2023-02-11] MEDS ORDERED: IPRATROPIUM BROM 0.5MG/2.5ML ONE (23:43)
[2023-02-11] MEDS ORDERED: ALBUTEROL 2.5 MG/3 ML NEB SOL ONE (23:43)
[2023-02-12 00:54] LABS: Hematocrit 36.8 % (36.0-45.0); Lymphocytes % 22.9 % (15.3-44.8); MCV 83.7 fL (80-100); MPV 8.5 fL (7.6-11.3); RBC Red Blood Cell Count 4.39 M/uL (3.86-4.86)
[2023-02-12 00:55] LABS: Absolute Lymphocytes (CBC) 2.5 K/uL (0.7-4.9)
[2023-02-12 01:11] LABS: ALT/SGPT 15 U/L (13-56); AST/SGOT 12 U/L (15-37); Alkaline Phosphatase 52 U/L (45-117); BUN Blood Urea Nitrogen 11 mg/dL (7-18); Bicarbonate 19 mEq/L (21-32); Bilirubin Total 0.2 mg/dL (0.2-1.0); Glomerular Filtration Rate 127 ml/min (=/>90); Glucose Level 111 mg/dL (74-106); Lipase 43 U/L (13-75); Potassium 3.5 mEq/L (3.5-5.1); Protein, Total 7.6 g/dL (6.4-8.2); Sodium Level 138 mEq/L (136-145)
[2023-02-12 01:12] LABS: Troponin High Sensitivity < 3.0 pg/mL (<58.9)
--- NOTE | 2023-02-12 01:35 | ER ---
Nurse's Notes [facility] Name: Taylor Rodriguez Age: 27 yrs Sex: Female : 1995 Arrival Date: 02/11/2023 Time: 22:38 Bed 17 Private MD: Diagnosis: Dyspnea;Chest pain, unspecified Presentation: 02/11 22:53 Chief complaint: Patient states: "I've been having the shakes, SOB, cough, dizziness, mb9 pains in my stomach, ribs, and both sides for 2 weeks.". Coronavirus screen: Vaccine status: Patient reports receiving the 2nd dose of the covid vaccine. Ebola Screen: No symptoms or risks identified at this time. Initial Sepsis Screen: Does the patient meet any 2 criteria? No. Patient's initial sepsis screen is negative. Does the patient have a suspected source of infection? No. Patient's initial sepsis screen is negative. Risk Assessment: Do you want to hurt yourself or someone else? Patient reports no desire to harm self or others. Onset of symptoms was 2022. 22:53 Method Of Arrival: Wheelchair [facility] 22:53 Acuity: MILAN 3 mb9 Triage Assessment: 22:56 General: Appears uncomfortable, Behavior is anxious. Pain: Complains of pain in mb9 abdomen. Neuro: Khan Agitation-Sedation Scale (RASS): 0 - Alert and Calm Level of Consciousness is awake, alert, obeys commands, Oriented to person, place, time, situation, Appropriate for age Reports dizziness. Respiratory: Reports shortness of breath cough that is Airway is patent Respiratory effort is even, unlabored, Respiratory pattern is regular, symmetrical. Derm: Skin is pink, warm \\T\\ dry. 23:42 Respiratory: Onset: The symptoms/episode began/occurred gradually, the patient has mild rv shortness of breath. Historical: - Allergies: 22:55 Naproxen; mb9 - Home Meds: 22:55 aripiprazole oral [Active]; duloxetine oral [Active]; gabapentin oral [Active]; mb9 Trazodone Oral [Active]; 23:40 Ferrous Sulfate Oral [Active]; Hydroxyzine Oral [Active]; losartan oral [Active]; rv Propranolol Oral [Active]; Tramadol Oral [Active]; Zofran Oral [Active]; - PMHx: 22:55 Anxiety; Bipolar disorder; Chronic pain; Depression; Fibromyalgia; High Blood Pressure; mb9 Schizophrenia; Sleep Apnea; - PSHx: 22:55 None; mb9 - Immunization history:: Adult Immunizations up to date. - Social history:: Smoking status: Reported history of juuling and/or vaping. - Family history:: not pertinent. Screenin:11 [facility] ED Fall Risk Assessment (Adult) History of falling in the last 3 months, mb9 including since admission Yes- single mechanical fall (1 pt) Confusion or Disorientation No (0 pts) Intoxicated or Sedated No (0 pts) Impaired Gait Yes (1 pt) Mobility Assist Device Used Yes (1 pt) Altered Elimination No (0 pt) Score/Fall Risk Level 3 or more points = High Risk Oriented to surroundings, Maintained a safe environment, Educated pt \\T\\ family on fall prevention, incl call for assistance when getting out of bed. Abuse screen: Denies threats or abuse. Nutritional screening: No deficits noted. Tuberculosis screening: No symptoms or risk factors identified. Assessment: 23:39 General: Appears in no apparent distress. Behavior is calm, cooperative. Pain: rv Complains of pain in abdomen. Neuro: Level of Consciousness is awake, alert, obeys commands, Oriented to person, place, time, situation. Cardiovascular: Rhythm is regular. Respiratory: Airway is patent Respiratory effort is even, unlabored, Breath sounds are clear bilaterally. GI: Abdomen is round non-distended, Reports upper abdominal pain. Vital Signs: 22:53 BP 133 / 95; Pulse 88; Resp 20; Temp 98.2; Pulse Ox 100% on R/A; Weight 117.93 kg; mb9 Height 5 ft. 5 in. ; Pain 05/10; 02/12 00:32 BP 148 / 77; Pulse 86; Resp 16; Temp 98; Pulse Ox 100% ; rv 02/11 22:53 Body Mass Index 43.27 (117.93 kg, 165.1 cm) mb9 02/11 22:53 Pain Scale: Adult mb9 ED Course: 02/11 22:42 Patient arrived in ED. ja2 22:47 Domenic Sidhu MD is Attending Physician. rt 22:55 Triage completed. mb9 22:55 Arm band placed on. mb9 23:06 Placed in gown. Bed in low position. Call light in reach. Side rails up X 1. Client mb9 placed on continuous cardiac and pulse oximetry monitoring. NIBP monitoring applied. 23:14 Tan Duckworth, RN is Primary Nurse. rv 23:42 No provider procedures requiring assistance completed. rv 23:45 Chest Single View XRAY In Process Unspecified. EDMS 23:51 US Abdomen Limited In Process Unspecified. EDMS 23:55 Inserted saline lock: 20 gauge in right antecubital area, using aseptic technique. rv Blood collected. Administered Medications: 23:54 Drug: DuoNeb Nebulize (3:1) (2.5 mg - 0.5 mg) 3 ml Route: Nebulizer; rv 02/12 01:36 Follow up: Response: No adverse reaction; Marked relief of symptoms rv 02/11 23:54 Drug: GI Cocktail without - (Maalox PO Suspension 30 ml, Lidocaine Mucous rv Membrane Liquid 2 % 15 ml) Route: PO; 02/12 01:36 Follow up: Response: No adverse reaction; Marked relief of symptoms rv Medication: 02/11 23:11 VIS not applicable for this client. mb9 Outcome: 02/12 01:34 Discharge ordered by . rt 01:36 Eloped from patient exam room, after seeing physician Time discovered patient gone: rv February 12, 2023 at 01:36 01:36 Condition: improved 01:36 Discharge instructions given to eloped before DC instructions 01:37 Patient left the ED. rv Signatures: Dispatcher [employer] EDMS Tan Duckworth, ROQUE RN rv Maday Baca Mary Beth RN RN mb9 Domenic Sidhu MD MD rt
--- NOTE | 2023-02-12 01:35 | EDPHYS ---
Physician Documentation [facility] Name: Taylor Rodriguez Age: 27 yrs Sex: Female : 1995 Arrival Date: 02/11/2023 Time: 22:38 Bed 17 Private MD: ED Physician Domenic Sidhu HPI: 02/12 00:14 This 27 yrs old Black Female presents to ER via Wheelchair with complaints of rt Dizziness, Shortness Of Breath, Numbness Of Hand, Confusion. 00:14 Patient presents to the ED with chest pain, dizziness, lightheadedness as well as an rt upper abdominal pain that has been present for several weeks, worsening today. Patient believes that she is wheezing, her asthma is acting up but has not taken any of her albuterol. She has not taken anything else for the symptoms. Symptoms are moderate severity, no other aggravating or alleviating factors.. Historical: - Allergies: 02/11 22:55 Naproxen; mb9 - Home Meds: 22:55 aripiprazole oral [Active]; duloxetine oral [Active]; gabapentin oral [Active]; mb9 Trazodone Oral [Active]; 23:40 Ferrous Sulfate Oral [Active]; Hydroxyzine Oral [Active]; losartan oral [Active]; rv Propranolol Oral [Active]; Tramadol Oral [Active]; Zofran Oral [Active]; - PMHx: 22:55 Anxiety; Bipolar disorder; Chronic pain; Depression; Fibromyalgia; High Blood Pressure; mb9 Schizophrenia; Sleep Apnea; - PSHx: 22:55 None; mb9 - Immunization history:: Adult Immunizations up to date. - Social history:: Smoking status: Reported history of juuling and/or vaping. - Family history:: not pertinent. ROS: 02/12 00:14 Constitutional: Negative for fever, chills, and weight loss, MS/Extremity: Negative for rt injury and deformity, Skin: Negative for injury, rash, and discoloration, Psych: Negative for depression, anxiety, suicide ideation, homicidal ideation, and hallucinations. Cardiovascular: Positive for chest pain, Negative for edema. Respiratory: Positive for shortness of breath, wheezing. Abdomen/GI: Positive for abdominal pain, nausea. Neuro: Positive for dizziness, Negative for altered mental status. Exam: 00:15 Constitutional: This is a well developed, well nourished patient who is awake, alert, rt and in no acute distress. Head/Face: Normocephalic, atraumatic. Chest/axilla: Normal chest wall appearance and motion. Nontender with no deformity. No lesions are appreciated. Cardiovascular: Regular rate and rhythm with a normal S1 and S2. No gallops, murmurs, or rubs. Normal PMI, no JVD. No pulse deficits. Skin: Warm, dry with normal turgor. Normal color with no rashes, no lesions, and no evidence of cellulitis. MS/ Extremity: Pulses equal, no cyanosis. Neurovascular intact. Full, normal range of motion. Neuro: Awake and alert, GCS 15, oriented to person, place, time, and situation. Cranial nerves II-XII grossly intact. Motor strength 5/5 in all extremities. Sensory grossly intact. Cerebellar exam normal. Normal gait. Psych: Awake, alert, with orientation to person, place and time. Behavior, mood, and affect are within normal limits. 00:15 ECG was reviewed by the Attending Physician. 00:15 Respiratory: Faint wheezes heard on all lung walker, no respiratory distress. 00:15 Abdomen/GI: Mild tenderness to the epigastrium to right upper quadrant without rebound, guarding, distention, no focal right lower quadrant tenderness or lower abdominal tenderness. Vital Signs: 02/11 22:53 BP 133 / 95; Pulse 88; Resp 20; Temp 98.2; Pulse Ox 100% on R/A; Weight 117.93 kg; mb9 Height 5 ft. 5 in. ; Pain 9/10; 02/12 00:32 BP 148 / 77; Pulse 86; Resp 16; Temp 98; Pulse Ox 100% ; rv 02/11 22:53 Body Mass Index 43.27 (117.93 kg, 165.1 cm) mb9 02/11 22:53 Pain Scale: Adult mb9 MDM: 02/11 23:09 Patient medically screened. rt 02/12 01:34 Differential diagnosis: Pneumonia, pneumothorax, bronchospasm, pancreatitis, rt cholecystitis, cholelithiasis. Data reviewed: vital signs, nurses notes, lab test result(s), EKG, radiologic studies. I considered the following discharge prescriptions or medication management in the emergency department Medications were administered in the Emergency Department. See MAR. Independent interpretation of the following test(s) in the Emergency Department X-Ray: My interpretation is No consolidation seen on interpretation of the x-ray images. Test considered but Not performed: CT: CT considered, however, patient's presentation is not consistent with a pulmonary embolism, appendicitis, bowel obstruction, CT scan not indicated. ED course: Patient eloped without informing staff before she could be reassessed or told her lab results.. 02/11 23:19 Order name: CBC with Diff rt 02/11 23:19 Order name: CMP; Complete Time: 01:15 rt 02/11 23:19 Order name: Troponin High Sensitivity; Complete Time: 01:15 rt 02/11 23:19 Order name: Lipase; Complete Time: 01:15 rt 02/12 01:01 Order name: Manual Differential EDMS 02/11 23:19 Order name: US Abdomen Limited rt 02/11 23:19 Order name: Chest Single View XRAY rt 02/11 23:19 Order name: EKG; Complete Time: 23:19 rt 02/11 23:19 Order name: EKG - Nurse/Tech; Complete Time: 23:37 rt EC:15 Rate is 80 beats/min. Rhythm is regular, Normal Sinus Rhythm with No ectopy. QRS [place] rt is Normal. VT interval is normal. QRS interval is normal. QT interval is normal. No Q waves. T waves are Normal. No ST changes noted. Interpreted by me. Administered Medications: 02/11 23:54 Drug: DuoNeb Nebulize (3:1) (2.5 mg - 0.5 mg) 3 ml Route: Nebulizer; rv 02/12 01:36 Follow up: Response: No adverse reaction; Marked relief of symptoms rv 02/11 23:54 Drug: GI Cocktail without - (Maalox PO Suspension 30 ml, Lidocaine Mucous rv Membrane Liquid 2 % 15 ml) Route: PO; 02/12 01:36 Follow up: Response: No adverse reaction; Marked relief of symptoms rv Disposition Summary: 02/12/23 01:34 Discharge Ordered Location: Home rt Problem: an acute exacerbation rt Condition: Stable rt Diagnosis - Dyspnea rt - Chest pain, unspecified rt Followup: rt - With: Private Physician - When: 2 - 3 days - Reason: Forms: - Medication Reconciliation Form rt - Thank You Letter rt - Antibiotic Education rt - Prescription Opioid Use rt Signatures: Dispatcher [employer] EDMS Gucci, Tan, RN RN rv Marlene Bo RN RN mb9 Domenic Sidhu MD MD rt
[2023-02-12 02:26] VITALS: O2SAT 100
[2023-02-12 02:28] VITALS: BP 133/95; TEMP 98.2
[2023-02-12 02:45] LABS: Blood Morphology Comment NOT SEEN (NOT SEEN); Platelet Estimate ADEQ
--- NOTE | 2023-02-12 07:20 | EKG ---
Test Date: 2023-02-11 Test Time: 23:31:46 Application Lead: RV MEASUREMENT RESULTS: Intervals: Rate: 80 DC: 132 QRSD: 80 QT: 382 QTc: 440 [place]: P: 20 DC: 132 QRS: 11 T: 3 INTERPRETIVE STATEMENTS: Normal sinus rhythm Normal ECG Compared to ECG 02/05/2023 10:25:47 No significant changes Electronically Signed On 02-12-23 07:19:49 CDT by Abraham Quñiones
--- NOTE | 2023-02-12 19:19 | RAD REPORT ---
EXAM DESCRIPTION: US - Abdomen Exam Limited - 02/11/2023 11:50 pm CLINICAL HISTORY: The patient is 27 years old and is Female; ABD PAIN TECHNIQUE: Real-time ultrasound of the right upper quadrant with image documentation. COMPARISON: No relevant prior studies available. FINDINGS: GALLBLADDER: Unremarkable. No gallstones. No gallbladder wall thickening or pericholec ystic fluid. COMMON BILE DUCT: Unremarkable as visualized. No stones. No dilation. IMPRESSION: Negative gallbladder ultrasound. Electronically signed by: Parul Hull MD 02/12/2023 12:55 AM CDT Due to temporary technical issues with the PACS/Fluency reporting system, reports are being signed by the in house radiologists without review as a courtesy to insure prompt reporting. The interpreting radiologist is fully responsible for the content of the report.
--- NOTE | 2023-02-12 19:21 | RAD REPORT ---
EXAM DESCRIPTION: RAD - Chest Single View - 02/11/2023 11:43 pm CLINICAL HISTORY: The patient is 27 years old and is Female; CHEST PAIN TECHNIQUE: Frontal view of the chest. COMPARISON: No relevant prior studies available. FINDINGS: Lungs: Unremarkable. No consolidation. Pleural space: Unremarkable. No pneumothorax. Heart: Unremarkable. Mediastinum: Unremarkable. Bones/joints: Unremarkable. IMPRESSION: No acute findings in the chest. Electronically signed by: Berlin Quinonez MD 02/12/2023 12:19 AM CDT Due to temporary technical issues with the PACS/Fluency reporting system, reports are being signed by the in house radiologists without review as a courtesy to insure prompt reporting. The interpreting radiologist is fully responsible for the content of the report.
== END 2023-02-12 01:37 | disposition home or self-care (01) ==
LOC: ER 22:38
DX: R06.00 Dyspnea, unspecified (principal); R07.89 Other chest pain; F20.9 Schizophrenia, unspecified; Z88.6 Allergy status to analgesic agent
CPT/HCPCS: 93005; 85025; 36415; 84484; 83690; 80053; 71045; 76705; 94640; 99284; J7613; J7644

== ENCOUNTER 2023-02-20 20:06 | Emergency (ER) | payer OTHER ==
--- OUTSIDE RECORDS SUMMARY | 2023-02-20 20:22 | XMS REPORT | Continuity of Care Document ---
:1995 Author Organization [facility] t Address [address] [place] [address] Care Team Providers Name Role Phone Roman YOUNG, [facility] Primary Care Physician [phone] DARLIN VICK Attending Clinician Unavailable SPENSER STOKES Attending Clinician Unavailable GAURAV PURVIS Attending Clinician Unavailable KEYONNA BRIONES Attending Clinician Unavailable ROBYN GARY Attending Clinician Unavailable BYRON MALHOTRA Attending Clinician Unavailable ANGELICA NEVAREZ Attending Clinician Unavailable SIMI JOHN Attending Clinician Unavailable LAB90 Attending Clinician Unavailable OLENA TREVIÑO Attending Clinician [...] SHEY BIANCHI Attending Clinician Unavailable Doctor Unassigned, [place] Attending Clinician Unavailable Shey Bianchi MD Attending [...] Date S our AETNA MP SILVER: 9 [id number] 2022 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 00:00: 00 [...] ALLERGIE Class ity of S [facility] Social History Social Habit Start Date Stop Date Quantity Comments Source Gender identity 2022-09-04 Identifies as Jelena Ibrahim - 10:33:35 male gender External (finding) Sexual orientation 2022-09-04 Jelena Eatonold - 10:33:35 External Exposure to Not sure [facility] of SARS-CoV-2 (event) [facility] History of tobacco Cigarette Smoker Jelena Patrice - use External History SDOH Jelena jerzy ld - Alcohol Frequency Externa l History SDOH Jelena Sejerzy ld - Alcohol 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 SDOH Jelena Gabi ld - Alcohol Binge External Alcohol intake 2023-02-18 2023-02-18 Current drinker Beth Ibrahim - 00:00:00 00:00:00 of alcohol External (finding) History of Social 2022-12-22 2022-12-22 Jelena Malcolmtiffanyold - function 00:00:00 00:00:00 External Tobacco use and 2022-12-22 2022-12-22 Smokeless tobacco Ke sveta Malcolmybold - exposure 00:00:00 00:00:00 non-user External Alcohol Comment 2022-09-09 2022-09-09 rare Jelena Se henley - 00:00:00 00:00:00 External Tobacco Comment 2019-08-16 2019-08-16 Quit Universit y of 00:00:00 00:00:00 smoking/vaping [facility] earlier this year Branch Sex Assigned At [birth year] F Jelena henley - 00:00:00 00:00:00 External Smoking Status Start Date Stop Date Source Occasional tobacco 2022-12-22 00:00:00 Jelena henley - smoker External Never smoked tobacco Jelena rod - External Former smoker 2020-09-07 00:00:00 2020-09-07 [facility] 00:00:00 Medical Branch Medications Ordered Filled Start Stop Current Ordering Indication Dosage Frequency Signature Comments Components Source Medication Medication Date Date Medication? 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 times l daily Dicyclomine 2022-0 Yes 20mg Take 1 Ashlie ey HCl 20 MG 6-21 tablet (20 Seyb old oral Tablet 11:04: mg total) - 18 by mouth Externa every 6 l (six) hours Aripiprazol 2022-0 Yes Abilify Reynold sey e (Abilify) 6-21 Seybold 10 MG oral 11:04: - Tablet 18 Externa l Trazodone 2022-0 Yes every 24 Ashlie ey HCl 100 MG 6-21 hours Seybold oral Tablet 11:04: - 18 Externa l Potassium 2022-0 Yes [id number] 1{tbl} Take 1 Jelena Chloride ER 6-21 tablet by Sey bold 20 MEQ oral 00:00: mouth - Tab CR 00 daily Externa l Propranolol 2022-0 Yes [id number] 10mg Take 1 Jelena HCl 10 MG 6-21 tablet (10 Seyb old oral Tablet 00:00: mg total) - 00 by mouth 3 Externa times l daily Budesonide 2022-0 Yes [id number] Inhale 2 Jelena 90 MCG/ACT 6-21 inhalation Sey bold inhalation 00:00: s into the - AEROSOL 00 lungs Externa POWDER, daily l BREATH ACTIVATED hydroCHLORO 2022-0 Yes [id number] 12.5mg Take 1 Jelena thiazide 6-21 capsule Seybold 12.5 MG 00:00: (12.5 mg - oral 00 total) by Externa Capsule mouth l daily Meclizine 2022-0 Yes [id number] TAKE ONE Jelena HCl 25 MG 6-19 (1) Seybold oral Tablet 00:00: TABLET(S) - 00 BY MOUTH Externa THREE l TIMES A DAY NEEDED. Gabapentin 2022-0 Yes [id number] 100mg Take 1 Jelena 100 MG oral 6-18 capsule Seybo ld Capsule 00:00: (100 mg - 00 total) by Externa mouth 3 l times daily Losartan 2022-0 Yes [id number] 100mg Take 1 Ke lsey Potassium 6-05 tablet Seybold (COZAAR) 00:00: (100 mg - 100 MG oral 00 total) by Ext jonathan Tablet mouth l daily Metoclopram 2022-0 Yes 10mg Take 1 Ashlie ey jonathan HCl 5-31 tablet (10 Seybol d (Reglan) 10 10:58: mg total) - MG oral 34 by mouth 4 Postdoctoral Scientist a Tablet times l daily Dicyclomine Yes 20mg Take 1 Ashlie ey HCl 20 MG 5-31 tablet (20 Seyb old oral Tablet 10:58: mg total) - 34 by mouth Externa every 6 l (six) hours Cyanocobala Yes Take by Reynold sey min 5-31 mouth Seybold (VITAMIN B 10:55: - 12 OR) 58 Externa l Topiramate Yes Topamax Ashlie ey (Topamax) 5-31 25mg Start Seyb old 25 MG oral 00:00: 1 po qd x - Tablet 00 3 days, 1 Externa po q 12 l hrs x 3 days, then 2 po q 12 hrs, Topiramate Yes Topamax Ashlie ey (Topamax) 5-31 25mg Start Seyb old 25 MG oral 00:00: 1 po qd x - Tablet 00 3 days, 1 Externa po q 12 l hrs x 3 days, then 2 po q 12 hrs, Meclizine Yes [id number] TAKE ONE Jelena HCl 25 MG 5-22 (1) Seybold oral Tablet 00:00: TABLET(S) - 00 BY MOUTH Externa THREE l TIMES A DAY NEEDED. Meclizine 2022- No [id number] TAKE ONE Jelena HCl 25 MG 5-22 06-19 (1) Seybold oral Tablet 00:00: 00:00 TABLET(S) - 00 :00 BY MOUTH Externa THREE l TIMES A DAY NEEDED. Losartan Yes [id number] 1{tbl} Take 1 K elsey Potassium-H 5-15 tablet by Sey bold CTZ 50-12.5 00:00: mouth - MG oral 00 daily Externa Tablet l Gabapentin 0 Yes [id number] 100mg Take 1 Jelena 100 MG oral 5-15 capsule Seybo ld Capsule 00:00: (100 mg - 00 total) by Externa mouth 3 l times daily Gabapentin 2022-0 202- No [id number] 100mg Take 1 Jelena 100 MG oral 5-15 06-16 capsule Seyb old Capsule 00:00: 00:00 (100 mg - 00 :00 total) by Externa mouth 3 l times daily Cholecalcif 0 Yes TAKE ONE Ke emirey juan 5-06 (1) Seybold (Vitamin 00:00: CAPSULE(S) - D3) 1.25 MG 00 BY MOUTH Exte rna (09258 UT) TWICE A l oral WEEK. Capsule Trazodone 0 3- No [id number] 100mg Take 1 Jelena HCl 100 MG 5-01 05-01 tablet Seybol d oral Tablet 11:10: 00:00 (100 mg - 14 :00 total) by Externa mouth at l bedtime Cyanocobala 0 Yes Take by Reynold sey min 5-01 mouth Seybold (VITAMIN B 09:56: - 12 OR) 28 Externa l Tramadol 0 Yes [id number] 50mg Q.25D Take 1 K elsey HCl 5-01 tablet (50 Seybold (ULTRAM) 50 00:00: mg total) - MG oral 00 by mouth Externa Tablet every 6 l hours as needed for pain Tramadol 0 Yes [id number] 50mg Q.25D Take 1 K elsey HCl 5-01 tablet (50 Seybold (ULTRAM) 50 00:00: mg total) - MG oral 00 by mouth Externa Tablet every 6 l hours as needed for pain Tramadol 0 Yes [id number] 50mg Q.25D Take 1 K elsey HCl [...] - 00 Externa l Trazodone 2022-0 Yes [id number] 100mg Take 1 K elsey HCl 100 MG 4-24 tablet Seybold oral Tablet 08:55: (100 mg - 22 total) by Externa mouth at l bedtime Cyanocobala 2022-0 Yes Take by Reynold sey min 4-24 mouth Seybold (VITAMIN B 08:55: - 12 OR) 22 Externa l Albuterol 2022-0 Yes [id number] 2{puff} Q.25D Inhale 2 Jelena HFA 108 (90 4-24 puffs into Se ybold Base) 00:00: the lungs - MCG/ACT IN 00 every 6 Postdoctoral Scientist a AERS hours as l needed for wheezing or shortness of breath Meclizine 2022-0 Yes [id number] TAKE ONE Jelena HCl 25 MG 4-24 (1) Seybold oral Tablet 00:00: TABLET(S) - 00 BY MOUTH Externa THREE l TIMES A DAY NEEDED. Albuterol 2022-0 Yes [id number] 2{puff} Q.25D Inhale 2 Jelena HFA 108 (90 4-24 puffs into Se ybold Base) 00:00: the lungs - MCG/ACT IN 00 every 6 Postdoctoral Scientist a AERS hours as l needed for wheezing or shortness of breath Albuterol 2022-0 Yes [id number] 2{puff} Q.25D Inhale 2 Jelena HFA 108 (90 4-24 puffs into Se ybold Base) 00:00: the lungs - MCG/ACT IN 00 every 6 Postdoctoral Scientist a AERS hours as l needed for wheezing or shortness of breath Albuterol 2022-0 Yes [id number] 2{puff} Q.25D Inhale 2 Jelena HFA 108 (90 4-24 puffs into Se ybold Base) 00:00: the lungs - MCG/ACT IN 00 every 6 Postdoctoral Scientist a AERS hours as l needed for wheezing or shortness of breath Cyclobenzap 2023-0 Yes 10mg Q.[id number] Take 1 Jelena rine HCl 10 4-22 [id number] tablet (10 Seybold MG oral 00:00: 3D mg total) - Tablet 00 by mouth Externa every 8 l hours as needed Cyclobenzap 2023-0 Yes 10mg Q.[id number] Take 1 Jelena rine HCl 10 4-22 [id number] tablet (10 Seybold MG oral 00:00: 3D mg total) - Tablet 00 by mouth Externa every 8 l hours as needed Cyclobenzap 2023-0 Yes 10mg Q.[id number] Take 1 Jelena rine HCl 10 12-20 [id number] tablet (10 Seybold MG oral 00:00: 3D mg total) - Tablet 00 by mouth Externa every 8 l hours as needed Cyclobenzap 2022-0 Yes 10mg Q.[id number] Take 1 Jelena rine HCl 10 12-20 [id number] tablet (10 Seybold MG oral 00:00: 3D mg total) - Tablet 00 by mouth Externa every 8 l hours as needed Gabapentin 2022-0 Yes [id number] 100mg Take 1 Jelena 100 MG oral 4-20 capsule Seybo ld Capsule 00:00: (100 mg - 00 total) by Externa mouth 3 l times daily Gabapentin 2022-0 Yes [id number] 100mg Take 1 Jelena 100 MG oral [...] Externa at bedtime l Trazodone 2022-0 Yes [id number] 100mg Take 1 K elsey HCl 100 MG 4-13 tablet Seybold oral Tablet 10:58: (100 mg - 09 total) by Externa mouth at l bedtime Cyanocobala 2022-0 Yes Take by Reynold sey min 4-13 mouth Seybold (VITAMIN B 10:58: - 12 OR) 09 Externa l Trazodone 2022-0 Yes [id number] 100mg Take 1 K elsey HCl 100 MG 4-10 tablet Seybold oral Tablet 11:00: (100 mg - 07 total) by Externa mouth at l bedtime Cyanocobala 2023-0 Yes Take by Reynold sey min 4-10 mouth Seybold (VITAMIN B 11:00: - 12 OR) 07 Externa l Propranolol 2023-0 Yes [id number] TAKE ONE Jelena HCl 10 MG 4-10 (1) Seybold oral Tablet 00:00: TABLET(S) - 00 BY MOUTH Externa THREE l TIMES A DAY. Propranolol 2023-0 Yes [id number] TAKE ONE Jelena HCl 10 MG 4-10 [...] Release daily as needed Propranolol 2023-0 Yes [id number] TAKE ONE Jelena HCl 10 MG 4-10 [...] Release daily as needed Propranolol 2023-0 Yes [id number] TAKE ONE Jelena HCl 10 MG 4-10 (1) Seybold oral Tablet 00:00: TABLET(S) - 00 BY MOUTH Externa THREE l TIMES A DAY. Orphenadrin 2023-0 Yes 100mg Q.5D Take 1 Reynold sey e Citrate 4-10 tablet Seybold CR 100 MG 00:00: (100 mg - oral Tablet 00 total) by Ext jonathan 12 Hour mouth 2 l Sustained times Release daily as needed Orphenadrin 2023-0 Yes 100mg Q.5D Take 1 Reynold sey e Citrate 4-10 tablet Seybold CR 100 MG 00:00: (100 mg - oral Tablet 00 total) by Ext jonathan 12 Hour mouth 2 l Sustained times Release daily as needed Propranolol 2023-0 2023- No [id number] TAKE ONE Jelena HCl 10 MG 4-10 06-21 (1) Seybold oral Tablet 00:00: 00:00 TABLET(S) - 00 :00 BY MOUTH Externa THREE l TIMES A DAY. Meloxicam 2023-0 Yes [id number] 15mg Take 1 Jelena 15 MG oral 4-06 tablet (15 Sey bold Tablet 00:00: mg total) - 00 by mouth Externa daily l Meloxicam 2023-0 Yes [id number] 15mg Take 1 Jelena 15 MG oral 4-06 tablet (15 Sey bold Tablet 00:00: mg total) - 00 by mouth Externa daily l Meloxicam 2023-0 Yes [id number] 15mg Take 1 Jelena 15 MG oral 4-06 tablet (15 Sey bold Tablet 00:00: mg total) - 00 by mouth Externa daily l Meloxicam 2023-0 Yes [id number] 15mg Take 1 Jelena 15 MG oral 4-06 tablet (15 Sey bold Tablet 00:00: mg total) - 00 by mouth Externa daily l Meloxicam 3-0 Yes [id number] 15mg Take 1 Jelena 15 MG oral 4-06 tablet (15 Sey bold Tablet 00:00: mg total) - 00 by mouth Externa daily l Meloxicam 3-0 Yes [id number] 15mg Take 1 Jelena 15 MG oral [...] Exter na mouth l every morning Meclizine 2022-0 Yes [id number] TAKE ONE Jelena HCl 25 MG 3-24 (1) Seybold oral Tablet 00:00: TABLET(S) - 00 BY MOUTH Externa THREE l TIMES A DAY NEEDED. Meclizine 2022-0 Yes [id number] TAKE ONE Jelena HCl 25 MG 3-24 (1) Seybold oral Tablet 00:00: TABLET(S) - 00 BY MOUTH Externa THREE l TIMES A DAY NEEDED. Meclizine 2022-0 Yes [id number] TAKE ONE Jelena HCl 25 MG 3-24 (1) Seybold oral Tablet 00:00: TABLET(S) - 00 BY MOUTH Externa THREE l TIMES A DAY NEEDED. Losartan 0 Yes [id number] 1{tbl} Take 1 K elsey Potassium-H 3-22 tablet by Sey bold CTZ 50-12.5 00:00: mouth - MG oral 00 daily Externa Tablet l Losartan 2022-0 Yes [id number] 1{tbl} Take 1 K elsey Potassium-H 3-22 tablet by Sey bold CTZ 50-12.5 00:00: mouth - MG oral 00 daily Externa Tablet l Losartan 2022-0 Yes [id number] 1{tbl} Take 1 K elsey Potassium-H 3-22 tablet by Sey bold CTZ 50-12.5 00:00: mouth - MG oral 00 daily Externa Tablet l Losartan 2022-0 Yes [id number] 1{tbl} Take 1 K elsey Potassium-H 3-22 tablet by Sey bold CTZ 50-12.5 00:00: mouth - MG oral 00 daily Externa Tablet l Propranolol 2022-0 2022- No [id number] TAKE ONE Jelena HCl 10 MG 3-10 04-10 (1) Seybold oral Tablet 00:00: 00:00 TABLET(S) - 00 :00 BY MOUTH Externa THREE l TIMES A DAY. Cholecalcif 2022-0 2022- No [id number] 48927D Take 1 Jelena juan 1.25 3-02 04-10 capsule Seybol d MG ([id number] 00:00: 00:00 (50,000 - UT) oral 00 :00 units Externa Capsule total) by l mouth twice a week for 8 doses Trazodone 3-0 Yes [id number] 100mg Take 100 Jelena HCl 100 MG 2-28 mg by Seybold oral Tablet 09:11: mouth at - 07 bedtime Externa l Cyanocobala 3-0 Yes Take by Reynold sey min 2-28 mouth Seybold (VITAMIN B 09:11: - 12 OR) 07 Externa l hydroCHLORO 3-0 Yes TAKE ONE Ke lsey thiazide 2-23 [...] Externa Capsule ONCE A l DAY. hydroCHLORO 3-0 Yes TAKE ONE Ke lsey thiazide 2-23 [...] A l DAY. hydrOXYzine 2023-0 Yes 50mg Q.[id number] Take 1 Jelena HCl 50 MG 2-13 [id number] tablet (50 Seybold oral Tablet 00:00: 3D mg total) - 00 by mouth Externa every 8 l hours as needed hydrOXYzine 2023-0 Yes 50mg Q.[id number] Take 1 Jelena HCl 50 MG 2-13 [id number] tablet (50 Seybold oral Tablet 00:00: 3D mg total) - 00 by mouth Externa every 8 l hours as needed hydrOXYzine 2023-0 Yes 50mg Q.[id number] Take 1 Jelena HCl 50 MG 2-13 [id number] tablet (50 Seybold oral Tablet 00:00: 3D mg total) - 00 by mouth Externa every 8 l hours as needed hydrOXYzine 2022-0 Yes 50mg Q.[id number] Take 1 Jelena HCl 50 MG 2-13 [id number] tablet (50 Seybold oral Tablet 00:00: 3D mg total) - 00 by mouth Externa every 8 l hours as needed Losartan 2022-0 Yes [id number] 1{tbl} Take 1 K elsey Potassium-H 2-10 tablet by [employer] bold CTZ 50-12.5 00:00: mouth - MG oral 00 daily Externa Tablet l Meclizine 2022-0 Yes [id number] 25mg Q.[id number] Take 1 Jelena HCl 25 MG 2-10 [id number] tablet (25 Seybold oral Tablet 00:00: 3D mg total) - 00 by mouth 3 Externa times l daily as needed Propranolol 2022-0 Yes [id number] 10mg Take 1 Jelena HCl 10 MG 2-10 tablet (10 Seyb old oral Tablet 00:00: mg total) - 00 by mouth 3 Externa times l daily Losartan 2022-0 Yes [id number] 1{tbl} Take 1 K elsey Potassium-H 2-10 tablet by Lit Kuaidi Dache CTZ 50-12.5 00:00: mouth - MG oral 00 daily Externa Tablet l Meclizine 2022-0 Yes [id number] 25mg Q.[id number] Take 1 Jelena HCl 25 MG 2-10 [id number] tablet (25 Seybold oral Tablet 00:00: 3D mg total) - 00 by mouth 3 Externa times l daily as needed Propranolol 2022-0 Yes [id number] 10mg Take 1 Jelena HCl 10 MG 2-10 tablet (10 Seyb old oral Tablet 00:00: mg total) - 00 by mouth 3 Externa times l daily Doxycycline 2022-0 Yes [id number] 100mg Take 1 Jelena Hyclate 100 1-31 tablet Seybol d MG oral 00:00: (100 mg - Tablet 00 total) by Externa mouth 2 l times daily Doxycycline 2022-0 2023- No [id number] 100mg Take 1 Jelena Hyclate 100 - 02-28 tablet Seybo ld MG oral 00:00: 00:00 (100 mg - Tablet 00 :00 total) by Externa mouth 2 l times daily Trulicity Yes [id number] .75mg Inject Jelena 0.75 1-28 0.75 mg Seybold MG/0.5ML 00:00: into the - subcutaneou 00 skin once Ext jonathan s Solution a week l Pen-injecto r Trulicity Yes [id number] .75mg Inject Jelena 0.75 1-28 0.75 mg Seybold MG/0.5ML 00:00: into the - subcutaneou 00 skin once Ext jonathan s Solution a week l Pen-injecto r Trulicity Yes [id number] .75mg Inject Jelena 0.75 1-28 0.75 mg Seybold MG/0.5ML 00:00: into the - subcutaneou 00 skin once Ext jonathan s Solution a week l Pen-injecto r Trulicity Yes [id number] .75mg Inject Jelena 0.75 1-28 0.75 mg Seybold MG/0.5ML 00:00: into the - subcutaneou 00 skin once Ext jonathan s Solution a week l Pen-injecto r Aripiprazol 2022- No Kelse y e 20 MG 1-25 01-25 Seybold oral Tablet 11:11: 00:00 - 39 :00 Externa l Aripiprazol 2022- No [id number] 10mg Take 10 mg Jelena e 10 MG 1-25 01-25 by mouth 2 Seybo ld oral Tablet 11:11: 00:00 times - 26 :00 daily Externa l Trazodone Yes [id number] 100mg Take 100 Jelena HCl 100 MG 1-25 mg by Seybold oral Tablet 10:31: mouth at - 22 bedtime Externa l Cyanocobala Yes Take by Reynold sey min 1-25 mouth Seybold (VITAMIN B 10:31: - 12 OR) 22 Externa l Trazodone Yes [id number] 100mg Take 100 Jelena HCl 100 MG 1-25 mg by Seybold oral Tablet 10:31: mouth at - 22 bedtime Externa l Cyanocobala Yes Take by Reynold sey min 1-25 mouth Seybold (VITAMIN B 10:31: - 12 OR) 22 Externa l hydroCHLORO Yes [id number] 12.5mg Take 1 Jelena thiazide 1-25 capsule Seybold 12.5 MG 00:00: (12.5 mg - oral 00 total) by Externa Capsule mouth l daily Ondansetron Yes [id number] 4mg Q.[id number] Take 1 Jelena (ZOFRAN) 4 1-25 [id number] tablet (4 Seybold MG oral 00:00: 3D mg total) - TABLET 00 by mouth Externa DISPERSIBLE every 8 l hours as needed for nausea Tirzepatide Yes [id number] 2.5mg Inject 0.5 Jelena (Mounjaro) 1-25 mL (2.5 mg Sey bold 2.5 00:00: total) - MG/0.5ML 00 into the Externa subcutaneou skin once l s Solution a week Pen-injecto r Celecoxib Yes [id number] 200mg Take 1 Jelena (CeleBREX) 1-25 capsule Seybol d 200 MG oral 00:00: (200 mg - Capsule 00 total) by Externa mouth 2 l times daily Gabapentin 0 Yes [id number] 100mg Take 1 Jelena 100 MG oral 1-25 capsule Seybo ld Capsule 00:00: (100 mg - 00 total) by Externa mouth 3 l times daily Ondansetron Yes [id number] 4mg Q.[id number] Take 1 Jelena (ZOFRAN) 4 1-25 [id number] tablet (4 Seybold MG oral 00:00: 3D mg total) - TABLET 00 by mouth Externa DISPERSIBLE every 8 l hours as needed for nausea Celecoxib 0 Yes [id number] 200mg Take 1 Jelena (CeleBREX) 1-25 capsule Seybol d 200 MG oral 00:00: (200 mg - Capsule 00 total) by Externa mouth 2 l times daily Gabapentin Yes [id number] 100mg Take 1 Jelena 100 MG oral 1-25 capsule Seybo ld Capsule 00:00: (100 mg - 00 total) by Externa mouth 3 l times daily Ondansetron 2022-0 Yes [id number] 4mg Q.[id number] Take 1 Jelena (ZOFRAN) 4 1-25 [id number] tablet (4 Seybold MG oral 00:00: 3D mg total) - TABLET 00 by mouth Externa DISPERSIBLE every 8 l hours as needed for nausea Celecoxib 2022-0 Yes [id number] 200mg Take 1 Jelena (CeleBREX) 1-25 capsule Seybol d 200 MG oral 00:00: (200 mg - Capsule 00 total) by Externa mouth 2 l times daily Gabapentin 2022-0 Yes [id number] 100mg Take 1 Jelena 100 MG oral 1-25 capsule Seybo ld Capsule 00:00: (100 mg - 00 total) by Externa mouth 3 l times daily Ondansetron 2022-0 Yes [id number] 4mg Q.[id number] Take 1 Jelena (ZOFRAN) 4 1-25 [id number] tablet (4 Seybold MG oral 00:00: 3D mg total) - TABLET 00 by mouth Externa DISPERSIBLE every 8 l hours as needed for nausea Gabapentin 2022-0 Yes [id number] 100mg Take 1 Jelena 100 MG oral 1-25 capsule Seybo ld Capsule 00:00: (100 mg - 00 total) by Externa mouth 3 l times daily Ondansetron 2022-0 Yes [id number] 4mg Q.[id number] Take 1 Jelena (ZOFRAN) 4 1-25 [id number] tablet (4 Seybold MG oral 00:00: 3D mg total) - TABLET 00 by mouth Externa DISPERSIBLE every 8 l hours as needed for nausea Gabapentin 3-0 Yes [id number] 100mg Take 1 Jelena 100 MG oral 1-25 capsule Seybo ld Capsule 00:00: (100 mg - 00 total) by Externa mouth 3 l times daily Ondansetron 3-0 Yes [id number] 4mg Q.[id number] Take 1 Jelena (ZOFRAN) 4 1-25 [id number] tablet (4 Seybold MG oral 00:00: 3D mg total) - TABLET 00 by mouth Externa DISPERSIBLE every 8 l hours as needed for nausea Ondansetron 2022-0 Yes [id number] 4mg Q.[id number] Take 1 Jelena (ZOFRAN) 4 1-25 [id number] tablet (4 Seybold MG oral 00:00: 3D mg total) - TABLET 00 by mouth Externa DISPERSIBLE every 8 l hours as needed for nausea Ondansetron 2022-0 Yes [id number] 4mg Q.[id number] Take 1 Jelena (ZOFRAN) 4 1-25 [id number] tablet (4 Seybold MG oral 00:00: 3D mg total) - TABLET 00 by mouth Externa DISPERSIBLE every 8 l hours as needed for nausea Ondansetron 2022-0 Yes [id number] 4mg Q.[id number] Take 1 Jelena (ZOFRAN) 4 1-25 [id number] tablet (4 Seybold MG oral 00:00: 3D mg total) - TABLET 00 by mouth Externa DISPERSIBLE every 8 l hours as needed for nausea hydroCHLORO 2022-0 2023- No [id number] 12.5mg Take 1 Jelena thiazide -25 02-10 capsule Seybold 12.5 MG 00:00: 00:00 (12.5 mg - oral 00 :00 total) by Externa Capsule mouth l daily Nexplanon 3-0 Yes Jelena 68 MG 1-23 [...] Implant 00 Externa l Docusate 0 Yes [id number] 100mg Take 1 Ke lsey Sodium 1-13 capsule Seybold (Colace) 00:00: (100 mg - 100 MG oral 00 total) by Ext jonathan Capsule mouth l daily Ferrous 0 Yes [id number] 325mg Take 1 Reynold sey Sulfate 1-13 tablet Seybold (Iron) 325 00:00: (325 mg - (65 Fe) MG 00 total) by Exte rna oral Tablet mouth l daily (with breakfast) Docusate 0 Yes [id number] 100mg Take 1 Ke lsey Sodium 1-13 capsule Seybold (Colace) 00:00: (100 mg - 100 MG oral 00 total) by Ext jonathan Capsule mouth l daily Ferrous 0 Yes [id number] 325mg Take 1 Reynold sey Sulfate 1-13 tablet Seybold (Iron) 325 00:00: (325 mg - (65 Fe) MG 00 total) by Exte rna oral Tablet mouth l daily (with breakfast) Docusate 0 Yes [id number] 100mg Take 1 Ke lsey Sodium 1-13 capsule Seybold (Colace) 00:00: (100 mg - 100 MG oral 00 total) by Ext jonathan Capsule mouth l daily Ferrous 0 Yes [id number] 325mg Take 1 Reynold sey Sulfate 1-13 tablet Seybold (Iron) 325 00:00: (325 mg - (65 Fe) MG 00 total) by Exte rna oral Tablet mouth l daily (with breakfast) Docusate 0 Yes [id number] 100mg Take 1 Ke lsey Sodium 1-13 capsule Seybold (Colace) 00:00: (100 mg - 100 MG oral 00 total) by Ext jonathan Capsule mouth l daily Ferrous 0 Yes [id number] 325mg Take 1 Reynold sey Sulfate 1-13 tablet Seybold (Iron) 325 00:00: (325 mg - (65 Fe) MG 00 total) by Exte rna oral Tablet mouth l daily (with breakfast) Docusate 2022-0 Yes [id number] 100mg Take 1 Ke lsey Sodium 1-13 capsule Seybold (Colace) 00:00: (100 mg - 100 MG oral 00 total) by Ext jonathan Capsule mouth l daily Ferrous 2022-0 Yes [id number] 325mg Take 1 Reynold sey Sulfate 1-13 tablet Seybold (Iron) 325 00:00: (325 mg - (65 Fe) MG 00 total) by Exte rna oral Tablet mouth l daily (with breakfast) Docusate 2022-0 Yes [id number] 100mg Take 1 Ke lsey Sodium 1-13 capsule Seybold (Colace) 00:00: (100 mg - 100 MG oral 00 total) by Ext jonathan Capsule mouth l daily Ferrous 2022-0 Yes [id number] 325mg Take 1 Reynold sey Sulfate 1-13 tablet Seybold (Iron) 325 00:00: (325 mg - (65 Fe) MG 00 total) by Exte rna oral Tablet mouth l daily (with breakfast) Docusate 2022-0 Yes [id number] 100mg Take 1 Ke lsey Sodium 1-13 capsule Seybold (Colace) 00:00: (100 mg - 100 MG oral 00 total) by Ext jonathan Capsule mouth l daily Ferrous 2022-0 Yes [id number] 325mg Take 1 Reynold sey Sulfate 1-13 tablet Seybold (Iron) 325 00:00: (325 mg - (65 Fe) MG 00 total) by Exte rna oral Tablet mouth l daily (with breakfast) Docusate 2022-0 Yes [id number] 100mg Take 1 Ke lsey Sodium 1-13 capsule Seybold (Colace) 00:00: (100 mg - 100 MG oral 00 total) by Ext jonathan Capsule mouth l daily Ferrous 2022-0 Yes [id number] 325mg Take 1 Reynold sey Sulfate 1-13 tablet Seybold (Iron) 325 00:00: (325 mg - (65 Fe) MG 00 total) by Exte rna oral Tablet mouth l daily (with breakfast) Docusate 2022-0 Yes [id number] 100mg Take 1 Ke lsey Sodium 1-13 capsule Seybold (Colace) 00:00: (100 mg - 100 MG oral 00 total) by Ext jonathan Capsule mouth l daily Ferrous Yes [id number] 325mg Take 1 Reynold sey Sulfate 1-13 tablet Seybold (Iron) 325 00:00: (325 mg - (65 Fe) MG 00 total) by Exte rna oral Tablet mouth l daily (with breakfast) Nitrofurant 2022- No [id number] 100mg Take 1 Jelena oin Monohyd 1-13 [...] 1-11 00:00: 00 LYRICA 150 2019-08 Yes [id number] Take 1 [facility] mg capsule 2-21 capsule by ity of 00:00: mouth [place] 00 twice a Medical day for Branch neuropathi c pain as directed by physician. LYRICA 150 2019-08 Yes [id number] Take 1 [facility] mg capsule 2-21 capsule by ity of 00:00: mouth [place] 00 twice a Medical day for Branch neuropathi c pain as directed by physician. LYRICA 150 2019-08 Yes [id number] Take 1 [facility] mg capsule 2-21 capsule by ity of 00:00: mouth [place] 00 twice a Medical day for Branch neuropathi c pain as directed by physician. LYRICA 150 2019-08 Yes [id number] Take 1 [facility] mg capsule 2-21 capsule by ity of 00:00: mouth [place] 00 twice a Medical day for Branch neuropathi c pain as directed by physician. LYRICA 150 2019-08 Yes [id number] Take 1 [facility] mg capsule 2-21 capsule by ity of 00:00: mouth [place] 00 twice a Medical day for Branch neuropathi c pain as directed by physician. LYRICA 150 2019-08 Yes [id number] Take 1 [facility] mg capsule 2-21 capsule by ity of 00:00: mouth [place] 00 twice a Medical day for Branch neuropathi c pain as directed by physician. LYRICA 150 2019-08 Yes [id number] Take 1 [facility] mg capsule 2-21 capsule [...] Take 5 mg [facility] e (ABILIFY 9-17 -17 by mouth 2 it y of ORAL) 16:16: 00:00 (two) [place] 00 :00 times Medical daily. Branch aripiprazol 2020-0 2020- No 5mg Take 5 mg [facility] e (ABILIFY 9-17 09-17 by mouth 2 it y of ORAL) 16:16: 00:00 (two) [place] 00 :00 times Medical daily. Branch aripiprazol 2020-0 2020- No 5mg Take 5 mg [facility] e (ABILIFY 05-17-17 by mouth 2 it y of ORAL) 16:16: 00:00 (two) [place] 00 :00 times Medical daily. Branch ofloxacin 2020-0 Yes [id number] 5[drp] Place 5 [facility] 0.3 % otic 9-17 [id number] Drops in ity of drops 00:00: both ears [place] 00 3 (three) Medical times Branch daily. ofloxacin 2020-0 Yes [id number] 5[drp] Place 5 [facility] 0.3 % otic 9-17 [id number] Drops in ity of drops 00:00: both ears [place] 00 3 (three) Medical times Branch daily. ofloxacin 2020-0 Yes [id number] 5[drp] Place 5 [facility] 0.3 % otic 9-17 [id number] Drops in ity of drops 00:00: both ears [place] 00 3 (three) Medical times Branch daily. ofloxacin 2020-0 Yes [id number] 5[drp] Place 5 [facility] 0.3 % otic 9-17 [id number] Drops in ity of drops 00:00: both ears [place] 00 3 (three) Medical times Branch daily. ofloxacin 2020-0 Yes [id number] 5[drp] Place 5 [facility] 0.3 % otic 9-17 [id number] Drops in ity of drops 00:00: both ears [place] 00 3 (three) Medical times Branch daily. ofloxacin 2020-0 Yes [id number] 5[drp] Place 5 [facility] 0.3 % otic 9-17 [id number] Drops in ity of drops 00:00: both ears [place] 00 3 (three) Medical times Branch daily. ofloxacin 2020-0 Yes [id number] 5[drp] Place 5 [facility] 0.3 % otic 9-17 [id number] Drops in ity of drops 00:00: both ears [place] 00 3 (three) Medical times Branch daily. ofloxacin 2020-0 Yes [id number] 5[drp] Place 5 [facility] 0.3 % otic 9-17 [id number] Drops in ity of drops 00:00: both ears [place] 00 3 (three) Medical times Branch daily. ofloxacin 2020-0 Yes [id number] 5[drp] Place 5 [facility] 0.3 % otic 9-17 [id number] Drops in ity of drops 00:00: both ears [place] 00 3 (three) Medical times Branch daily. ofloxacin 2020-0 Yes [id number] 5[drp] Place 5 [facility] 0.3 % otic 9-17 [id number] Drops in ity of drops 00:00: both ears [place] 00 3 (three) Medical times Branch daily. ofloxacin 2020-0 Yes [id number] 5[drp] Place 5 [facility] 0.3 % otic 9-17 [id number] Drops in ity of drops 00:00: both ears [place] 00 3 (three) Medical times Branch daily. ofloxacin 2020-0 Yes [id number] 5[drp] Place 5 [facility] 0.3 % otic 9-17 [id number] Drops in ity of drops 00:00: both ears [place] 00 3 (three) Medical times Branch daily. ofloxacin 2020-0 Yes [id number] 5[drp] Place 5 [facility] 0.3 % otic 9-17 [id number] Drops in ity of drops 00:00: both ears [place] 00 3 (three) Medical times Branch daily. ofloxacin 2020-0 Yes [id number] 5[drp] Place 5 [facility] 0.3 % otic 9-17 [id number] Drops in ity of drops 00:00: both ears [place] 00 3 (three) Medical times Branch daily. ofloxacin 2020-0 Yes [id number] 5[drp] Place 5 [facility] 0.3 % otic 9-17 [id number] Drops in ity of drops 00:00: both ears [place] 00 3 (three) Medical times Branch daily. [...] Indication s: acute pain metoprolol 2020-0 Yes [id number] 50mg Take 1 Un nneka succinate - tablet by ity o f XL 50 mg 24 00:00: mouth [place] hr tablet 00 daily. Medical Branch hydroCHLORO 2019-0 Yes [id number] 25mg Take 1 [facility] thiazide 25 - tablet by ity of mg tablet 00:00: mouth [place] 00 daily. Medical Branch baclofen 10 2019-0 Yes [id number] 10mg Take 1 [facility] mg tablet 03-08 [id number] tablet by ity of 00:00: mouth 3 [place] 00 (three) Medical times Branch daily as needed for Pain (scale 4-6). metoprolol 2020-0 Yes [id number] 50mg Take 1 Un nneka succinate 7-09 tablet by ity o f XL 50 mg 24 00:00: mouth [place] hr tablet 00 daily. Medical Branch hydroCHLORO 2020-0 Yes [id number] 25mg Take 1 [facility] thiazide 25 7- tablet by ity of mg tablet 00:00: mouth [place] 00 daily. Medical Branch baclofen 10 2019-0 Yes [id number] 10mg Take 1 [facility] mg tablet 03-08 [id number] tablet by ity of 00:00: mouth 3 [place] 00 (three) Medical times Branch daily as needed for Pain (scale 4-6). metoprolol 2020-0 Yes [id number] 50mg Take 1 Un nneka succinate 7-09 tablet by ity o f XL 50 mg 24 00:00: mouth [place] hr tablet 00 daily. Medical Branch hydroCHLORO 2020-0 Yes [id number] 25mg Take 1 [facility] thiazide 25 7-09 tablet by ity of mg tablet 00:00: mouth [place] 00 daily. Medical Branch baclofen 10 2020-0 Yes [id number] 10mg Take 1 [facility] mg tablet 7- [id number] tablet by ity of 00:00: mouth 3 [place] 00 (three) Medical times Branch daily as needed for Pain (scale 4-6). metoprolol 2020-0 Yes [id number] 50mg Take 1 Un nneka succinate 7-09 tablet by ity o f XL 50 mg 24 00:00: mouth [place] hr tablet 00 daily. Medical Branch hydroCHLORO 2020-0 Yes [id number] 25mg Take 1 [facility] thiazide 25 7-09 tablet by ity of mg tablet 00:00: mouth [place] 00 daily. Medical Branch baclofen 10 2020-0 Yes [id number] 10mg Take 1 [facility] mg tablet 03-08 [id number] tablet by ity of 00:00: mouth 3 [place] 00 (three) Medical times Branch daily as needed for Pain (scale 4-6). metoprolol 2020-0 Yes [id number] 50mg Take 1 Un nneka succinate 7-09 tablet by ity o f XL 50 mg 24 00:00: mouth [place] hr tablet 00 daily. Medical Branch hydroCHLORO 2020-0 Yes [id number] 25mg Take 1 [facility] thiazide 25 7-09 tablet by ity of mg tablet 00:00: mouth [place] 00 daily. Medical Branch baclofen 10 2020-0 Yes [id number] 10mg Take 1 [facility] mg tablet - [id number] tablet by ity of 00:00: mouth 3 [place] 00 (three) Medical times Branch daily as needed for Pain (scale 4-6). metoprolol 2020-0 Yes [id number] 50mg Take 1 Un nneka succinate 7-09 tablet by ity o f XL 50 mg 24 00:00: mouth [place] hr tablet 00 daily. Medical Branch hydroCHLORO 2020-0 Yes [id number] 25mg Take 1 [facility] thiazide 25 7-09 tablet by ity of mg tablet 00:00: mouth [place] 00 daily. Medical Branch baclofen 10 2020-0 Yes [id number] 10mg Take 1 [facility] mg tablet 7 [id number] tablet by ity of 00:00: mouth 3 [place] 00 (three) Medical times Branch daily as needed for Pain (scale 4-6). metoprolol 2020-0 Yes [id number] 50mg Take 1 Un nneka succinate 7-09 tablet by ity o f XL 50 mg 24 00:00: mouth [place] hr tablet 00 daily. Medical Branch hydroCHLORO 2020-0 Yes [id number] 25mg Take 1 [facility] thiazide 25 7-09 tablet by ity of mg tablet 00:00: mouth [place] 00 daily. Medical Branch baclofen 10 2020-0 Yes [id number] 10mg Take 1 [facility] mg tablet 7 [id number] tablet by ity of 00:00: mouth 3 [place] 00 (three) Medical times Branch daily as needed for Pain (scale 4-6). metoprolol 2020-0 Yes [id number] 50mg Take 1 Un nneka succinate 7-09 tablet by ity o f XL 50 mg 24 00:00: mouth [place] hr tablet 00 daily. Medical Branch hydroCHLORO 2020-0 Yes [id number] 25mg Take 1 [facility] thiazide 25 7-09 tablet by ity of mg tablet 00:00: mouth [place] 00 daily. Medical Branch baclofen 10 2020-0 Yes [id number] 10mg Take 1 [facility] mg tablet 03-08 [id number] tablet by ity of 00:00: mouth 3 [place] 00 (three) Medical times Branch daily as needed for Pain (scale 4-6). metoprolol 2020-0 Yes [id number] 50mg Take 1 Un nneka succinate 7-09 tablet by ity o f XL 50 mg 24 00:00: mouth [place] hr tablet 00 daily. Medical Branch hydroCHLORO 2020-0 Yes [id number] 25mg Take 1 [facility] thiazide 25 7-09 tablet by ity of mg tablet 00:00: mouth [place] 00 daily. Medical Branch baclofen 10 2020-0 Yes [id number] 10mg Take 1 [facility] mg tablet 7- [id number] tablet by ity of 00:00: mouth 3 [place] 00 (three) Medical times Branch daily as needed for Pain (scale 4-6). metoprolol 2020-0 Yes [id number] 50mg Take 1 Un nneka succinate 7-09 tablet by ity o f XL 50 mg 24 00:00: mouth [place] hr tablet 00 daily. Medical Branch hydroCHLORO 2020-0 Yes [id number] 25mg Take 1 [facility] thiazide 25 7-09 tablet by ity of mg tablet 00:00: mouth [place] 00 daily. Medical Branch baclofen 10 2020-0 Yes [id number] 10mg Take 1 [facility] mg tablet 03-08 [id number] tablet by ity of 00:00: mouth 3 [place] 00 (three) Medical times Branch daily as needed for Pain (scale 4-6). metoprolol 2020-0 Yes [id number] 50mg Take 1 Un nneka succinate 7-09 tablet by ity o f XL 50 mg 24 00:00: mouth [place] hr tablet 00 daily. Medical Branch hydroCHLORO 2020-0 Yes [id number] 25mg Take 1 [facility] thiazide 25 7-09 tablet by ity of mg tablet 00:00: mouth [place] 00 daily. Medical Branch baclofen 10 2019-0 Yes [id number] 10mg Take 1 [facility] mg tablet 03-08 [id number] tablet by ity of 00:00: mouth 3 [place] 00 (three) Medical times Branch daily as needed for Pain (scale 4-6). metoprolol 2020-0 Yes [id number] 50mg Take 1 Un nneka succinate 7-09 tablet by ity o f XL 50 mg 24 00:00: mouth [place] hr tablet 00 daily. Medical Branch hydroCHLORO 2020-0 Yes [id number] 25mg Take 1 [facility] thiazide 25 7-09 tablet by ity of mg tablet 00:00: mouth [place] 00 daily. Medical Branch baclofen 10 2019-0 Yes [id number] 10mg Take 1 [facility] mg tablet 03-08 [id number] tablet by ity of 00:00: mouth 3 [place] 00 (three) Medical times Branch daily as needed for Pain (scale 4-6). metoprolol 2020-0 Yes [id number] 50mg Take 1 Un nneka succinate 7-09 tablet by ity o f XL 50 mg 24 00:00: mouth [place] hr tablet 00 daily. Medical Branch hydroCHLORO 2020-0 Yes [id number] 25mg Take 1 [facility] thiazide 25 7-09 tablet by ity of mg tablet 00:00: mouth [place] 00 daily. Medical Branch baclofen 10 2019-0 Yes [id number] 10mg Take 1 [facility] mg tablet 03-08 [id number] tablet by ity of 00:00: mouth 3 [place] 00 (three) Medical times Branch daily as needed for Pain (scale 4-6). metoprolol 2020-0 Yes [id number] 50mg Take 1 Un nneka succinate 7-09 tablet by ity o f XL 50 mg 24 00:00: mouth [place] hr tablet 00 daily. Medical Branch hydroCHLORO 2020-0 Yes [id number] 25mg Take 1 [facility] thiazide 25 7-09 tablet by ity of mg tablet 00:00: mouth [place] 00 daily. Medical Branch baclofen 10 2020-0 Yes [id number] 10mg Take 1 [facility] mg tablet 03-08 [id number] tablet by ity of 00:00: mouth 3 [place] 00 (three) Medical times Branch daily as needed for Pain (scale 4-6). metoprolol 2020-0 Yes [id number] 50mg Take 1 Un nneka succinate 7-09 tablet by ity o f XL 50 mg 24 00:00: mouth [place] hr tablet 00 daily. Medical Branch hydroCHLORO 2020-0 Yes [id number] 25mg Take 1 [facility] thiazide 25 7-09 tablet by ity of mg tablet 00:00: mouth [place] 00 daily. Medical Branch baclofen 10 2020-0 Yes [id number] 10mg Take 1 [facility] mg tablet 03-08 [id number] tablet by ity of 00:00: mouth 3 [place] 00 (three) Medical times Branch daily as needed for Pain (scale 4-6). metoprolol 2020-0 Yes [id number] 50mg Take 1 Un nneka succinate 7-09 tablet by ity o f XL 50 mg 24 00:00: mouth [place] hr tablet 00 daily. Medical Branch hydroCHLORO 2020-0 Yes [id number] 25mg Take 1 [facility] thiazide 25 7-09 tablet by ity of mg tablet 00:00: mouth [place] 00 daily. Medical Branch baclofen 10 2020-0 Yes [id number] 10mg Take 1 [facility] mg tablet 03-08 [id number] tablet by ity of 00:00: mouth 3 [place] 00 (three) Medical times Branch daily as needed for Pain (scale 4-6). metoprolol 2020-0 Yes [id number] 50mg Take 1 Un nneka succinate 7-09 tablet by ity o f XL 50 mg 24 00:00: mouth [place] hr tablet 00 daily. Medical Branch hydroCHLORO 2020-0 Yes [id number] 25mg Take 1 [facility] thiazide 25 7-09 tablet by ity of mg tablet 00:00: mouth [place] 00 daily. Medical Branch baclofen 10 2020-0 Yes [id number] 10mg Take 1 [facility] mg tablet 7- [id number] tablet by ity of 00:00: mouth 3 [place] 00 (three) Medical times Branch daily as needed for Pain (scale 4-6). metoprolol 2020-0 Yes [id number] 50mg Take 1 Un nneka succinate 7-09 tablet by ity o f XL 50 mg 24 00:00: mouth [place] hr tablet 00 daily. Medical Branch hydroCHLORO 2020-0 Yes [id number] 25mg Take 1 [facility] thiazide 25 7-09 tablet by ity of mg tablet 00:00: mouth [place] 00 daily. Medical Branch baclofen 10 2020-0 Yes [id number] 10mg Take 1 [facility] mg tablet 03-08 [id number] tablet by ity of 00:00: mouth 3 [place] 00 (three) Medical times Branch daily as needed for Pain (scale 4-6). metoprolol 2020-0 Yes [id number] 50mg Take 1 Un nneka succinate 7-09 tablet by ity o f XL 50 mg 24 00:00: mouth [place] hr tablet 00 daily. Medical Branch hydroCHLORO 2020-0 Yes [id number] 25mg Take 1 [facility] thiazide 25 7-09 tablet by ity of mg tablet 00:00: mouth [place] 00 daily. Medical Branch baclofen 10 2019-0 Yes [id number] 10mg Take 1 [facility] mg tablet 03-08 [id number] tablet by ity of 00:00: mouth 3 [place] 00 (three) Medical times Branch daily as needed for Pain (scale 4-6). metoprolol 2020-0 Yes [id number] 50mg Take 1 Un nneka succinate 7-09 tablet by ity o f XL 50 mg 24 00:00: mouth [place] hr tablet 00 daily. Medical Branch hydroCHLORO 2020-0 Yes [id number] 25mg Take 1 [facility] thiazide 25 7-09 tablet by ity of mg tablet 00:00: mouth [place] 00 daily. Medical Branch baclofen 10 2020-0 Yes [id number] 10mg Take 1 [facility] mg tablet 7- [id number] tablet by ity of 00:00: mouth 3 [place] 00 (three) Medical times Branch daily as needed for Pain (scale 4-6). metoprolol 2020-0 Yes [id number] 50mg Take 1 Un nneka succinate 7-09 tablet by ity o f XL 50 mg 24 00:00: mouth [place] hr tablet 00 daily. Medical Branch hydroCHLORO 2020-0 Yes [id number] 25mg Take 1 [facility] thiazide 25 7-09 tablet by ity of mg tablet 00:00: mouth [place] 00 daily. Medical Branch baclofen 10 2019-0 Yes [id number] 10mg Take 1 [facility] mg tablet 03-08 [id number] tablet by ity of 00:00: mouth 3 [place] 00 (three) Medical times Branch daily as needed for Pain (scale 4-6). metoprolol 2020-0 Yes [id number] 50mg Take 1 Un nneka succinate 7-09 tablet by ity o f XL 50 mg 24 00:00: mouth [place] hr tablet 00 daily. Medical Branch hydroCHLORO 2019-0 Yes [id number] 25mg Take 1 [facility] thiazide 25 7-09 tablet by ity of mg tablet 00:00: mouth [place] 00 daily. Medical Branch baclofen 10 2019-0 Yes [id number] 10mg Take 1 [facility] mg tablet 03-08 [id number] tablet by ity of 00:00: mouth 3 [place] 00 (three) Medical times Branch daily as needed for Pain (scale 4-6). metoprolol 2020-0 Yes [id number] 50mg Take 1 Un nneka succinate 7-09 tablet by ity o f XL 50 mg 24 00:00: mouth [place] hr tablet 00 daily. Medical Branch hydroCHLORO 2019-0 Yes [id number] 25mg Take 1 [facility] thiazide 25 7-09 tablet by ity of mg tablet 00:00: mouth [place] 00 daily. Medical Branch baclofen 10 2019-0 Yes [id number] 10mg Take 1 [facility] mg tablet 03-08 [id number] tablet by ity of 00:00: mouth 3 [place] 00 (three) Medical times Branch daily as needed for Pain (scale 4-6). metoprolol 2020-0 Yes [id number] 50mg Take 1 Un nneka succinate 7-09 tablet by ity o f XL 50 mg 24 00:00: mouth [place] hr tablet 00 daily. Medical Branch hydroCHLORO 2019-0 Yes [id number] 25mg Take 1 [facility] thiazide 25 7-09 tablet by ity of mg tablet 00:00: mouth [place] 00 daily. Medical Branch baclofen 10 2019-0 Yes [id number] 10mg Take 1 [facility] mg tablet [id number] tablet by ity of 00:00: mouth 3 [place] 00 (three) Medical times [place] daily as needed for Pain (scale 4-6). metoprolol 2020-0 Yes [id number] 50mg Take 1 Un nneka succinate - tablet by ity o f XL 50 mg 24 00:00: mouth [place] hr tablet 00 daily. Medical Branch hydroCHLORO 2020-0 Yes [id number] 25mg Take 1 [facility] thiazide 25 - tablet by ity of mg tablet 00:00: mouth [place] 00 daily. Medical Branch baclofen 10 2020-0 Yes [id number] 10mg Take 1 [facility] mg tablet 03-08 [id number] tablet by ity of 00:00: mouth 3 [place] 00 (three) Medical times [place] daily as needed for Pain (scale 4-6). DULOXETINE 2020-0 Yes 60mg Take 60 mg U nivers HCL 2-25 by mouth 3 ity of (CYMBALTA 14:58: (three) [place] ORAL) 32 times Medical daily. Branch VITAMIN B 2020-0 Yes Take by Unive rs COMPLEX 2-25 mouth. ity of ORAL 14:58: [place] [address] Medical Branch traZODONE 2020-0 Yes 100mg Take 100 [facility] vers 100 mg 2-25 mg by ity of tablet 14:58: mouth at [place] [address] bedtime. Medical Branch benztropine 2020-0 Yes 1mg Take 1 mg U nivers 1 mg tablet 2-25 by mouth ity of 14:58: daily. [place] [address] Medical Branch DULOXETINE 2020-0 Yes 60mg Take 60 mg U nivers HCL 2-25 by mouth 3 ity of (CYMBALTA 14:58: (three) [place] ORAL) 32 times Medical daily. Branch VITAMIN B 2020-0 Yes Take by Unive rs COMPLEX 2-25 mouth. ity of ORAL 14:58: [place] [address] Medical Branch traZODONE 2020-0 Yes 100mg Take 100 [facility] vers 100 mg 2-25 mg by ity of tablet 14:58: mouth at [place] [address] bedtime. Medical Branch benztropine 2020-0 Yes 1mg Take 1 mg U nivers 1 mg tablet 2-25 by mouth ity of 14:58: daily. [place] [address] Medical Branch DULOXETINE 2020-0 Yes 60mg Take 60 mg U nivers HCL 2-25 by mouth 3 ity of (CYMBALTA 14:58: (three) [place] ORAL) 32 times Medical daily. Branch VITAMIN B 2020-0 Yes Take by Unive rs COMPLEX 2-25 mouth. ity of ORAL 14:58: [place] [address] Medical Branch traZODONE 2020-0 Yes 100mg Take 100 [facility] vers 100 mg 2-25 mg by ity of tablet 14:58: mouth at [place] [address] bedtime. Medical Branch benztropine 2020-0 Yes 1mg Take 1 mg U nivers 1 mg tablet 2-25 by mouth ity of 14:58: daily. [place] [address] Medical Branch DULOXETINE 2020-0 Yes 60mg Take 60 mg U nivers HCL 2-25 by mouth 3 ity of (CYMBALTA 14:58: (three) [place] ORAL) 32 times Medical daily. Branch VITAMIN B 2020-0 Yes Take by Unive rs COMPLEX 2-25 mouth. ity of ORAL 14:58: [place] [address] Medical Branch traZODONE 2020-0 Yes 100mg Take 100 [facility] vers 100 mg 2-25 mg by ity of tablet 14:58: mouth at [place] [address] bedtime. Medical Branch benztropine 2020-0 Yes 1mg Take 1 mg U nivers 1 mg tablet 2-25 by mouth ity of 14:58: daily. [place] [address] Medical Branch DULOXETINE 2020-0 Yes 60mg Take 60 mg U nivers HCL 2-25 by mouth 3 ity of (CYMBALTA 14:58: (three) [place] ORAL) 32 times Medical daily. Branch VITAMIN B 2020-0 Yes Take by Unive rs COMPLEX 2-25 mouth. ity of ORAL 14:58: [place] [address] Medical Branch traZODONE 2020-0 Yes 100mg Take 100 [facility] vers 100 mg 2-25 mg by ity of tablet 14:58: mouth at [place] [address] bedtime. Medical Branch benztropine 2020-0 Yes 1mg Take 1 mg U nivers 1 mg tablet 2-25 by mouth ity of 14:58: daily. [place] [address] Medical Branch DULOXETINE 2020-0 Yes 60mg Take 60 mg U nivers HCL 2-25 by mouth 3 ity of (CYMBALTA 14:58: (three) [place] ORAL) 32 times Medical daily. Branch VITAMIN B 2020-0 Yes Take by Unive rs COMPLEX 2-25 mouth. ity of ORAL 14:58: [place] [address] Medical Branch traZODONE 2020-0 Yes 100mg Take 100 [facility] vers 100 mg 2-25 mg by ity of tablet 14:58: mouth at [place] [address] bedtime. Medical Branch benztropine 2020-0 Yes 1mg Take 1 mg U nivers 1 mg tablet 2-25 by mouth ity of 14:58: daily. [place] [address] Medical Branch DULOXETINE 2020-0 Yes 60mg Take 60 mg U nivers HCL 2-25 by mouth 3 ity of (CYMBALTA 14:58: (three) [place] ORAL) 32 times Medical daily. Branch VITAMIN B 2020-0 Yes Take by Unive rs COMPLEX 2-25 mouth. ity of ORAL 14:58: [place] [address] Medical Branch traZODONE 2020-0 Yes 100mg Take 100 [facility] vers 100 mg 2-25 mg by ity of tablet 14:58: mouth at [place] [address] bedtime. Medical Branch benztropine 2020-0 Yes 1mg Take 1 mg U nivers 1 mg tablet 2-25 by mouth ity of 14:58: daily. [place] [address] Medical Branch DULOXETINE 2020-0 Yes 60mg Take 60 mg U nivers HCL 2-25 by mouth 3 ity of (CYMBALTA 14:58: (three) [place] ORAL) 32 times Medical daily. Branch VITAMIN B 2020-0 Yes Take by Unive rs COMPLEX 2-25 mouth. ity of ORAL 14:58: [place] [address] Medical Branch traZODONE 2020-0 Yes 100mg Take 100 [facility] vers 100 mg 2-25 mg by ity of tablet 14:58: mouth at [place] [address] bedtime. Medical Branch benztropine 2020-0 Yes 1mg Take 1 mg U nivers 1 mg tablet 2-25 by mouth ity of 14:58: daily. [place] [address] Medical Branch DULOXETINE 2020-0 Yes 60mg Take 60 mg U nivers HCL 2-25 by mouth 3 ity of (CYMBALTA 14:58: (three) [place] ORAL) 32 times Medical daily. Branch VITAMIN B 2020-0 Yes Take by Unive rs COMPLEX 2-25 mouth. ity of ORAL 14:58: [place] [address] Medical Branch traZODONE 2020-0 Yes 100mg Take 100 [facility] vers 100 mg 2-25 mg by ity of tablet 14:58: mouth at [place] [address] bedtime. Medical Branch benztropine 2020-0 Yes 1mg Take 1 mg U nivers 1 mg tablet 2-25 by mouth ity of 14:58: daily. [place] [address] Medical Branch DULOXETINE 2020-0 Yes 60mg Take 60 mg U nivers HCL 2-25 by mouth 3 ity of (CYMBALTA 14:58: (three) [place] ORAL) 32 times Medical daily. Branch VITAMIN B 2020-0 Yes Take by Unive rs COMPLEX 2-25 mouth. ity of ORAL 14:58: [place] [address] Medical Branch traZODONE 2020-0 Yes 100mg Take 100 [facility] vers 100 mg 2-25 mg by ity of tablet 14:58: mouth at [place] [address] bedtime. Medical Branch benztropine 2020-0 Yes 1mg Take 1 mg U nivers 1 mg tablet 2-25 by mouth ity of 14:58: daily. [place] [address] Medical Branch DULOXETINE 2020-0 Yes 60mg Take 60 mg U nivers HCL 2-25 by mouth 3 ity of (CYMBALTA 14:58: (three) [place] ORAL) 32 times Medical daily. Branch VITAMIN B 2020-0 Yes Take by Unive rs COMPLEX 2-25 mouth. ity of ORAL 14:58: [place] [address] Medical Branch traZODONE 2020-0 Yes 100mg Take 100 [facility] vers 100 mg 2-25 mg by ity of tablet 14:58: mouth at [place] [address] bedtime. Medical Branch benztropine 2020-0 Yes 1mg Take 1 mg U nivers 1 mg tablet 2-25 by mouth ity of 14:58: daily. [place] [address] Medical Branch DULOXETINE 2020-0 Yes 60mg Take 60 mg U nivers HCL 2-25 by mouth 3 ity of (CYMBALTA 14:58: (three) [place] ORAL) 32 times Medical daily. Branch VITAMIN B 2020-0 Yes Take by Unive rs COMPLEX 2-25 mouth. ity of ORAL 14:58: [place] [address] Medical Branch traZODONE 2020-0 Yes 100mg Take 100 [facility] vers 100 mg 2-25 mg by ity of tablet 14:58: mouth at [place] [address] bedtime. Medical Branch benztropine 2020-0 Yes 1mg Take 1 mg U nivers 1 mg tablet 2-25 by mouth ity of 14:58: daily. [place] [address] Medical Branch DULOXETINE 2020-0 Yes 60mg Take 60 mg U nivers HCL 2-25 by mouth 3 ity of (CYMBALTA 14:58: (three) [place] ORAL) 32 times Medical daily. Branch VITAMIN B 2020-0 Yes Take by Unive rs COMPLEX 2-25 mouth. ity of ORAL 14:58: [place] [address] Medical Branch traZODONE 2020-0 Yes 100mg Take 100 [facility] vers 100 mg 2-25 mg by ity of tablet 14:58: mouth at [place] [address] bedtime. Medical Branch benztropine 2020-0 Yes 1mg Take 1 mg U nivers 1 mg tablet 2-25 by mouth ity of 14:58: daily. [place] [address] Medical Branch DULOXETINE 2020-0 Yes 60mg Take 60 mg U nivers HCL 2-25 by mouth 3 ity of (CYMBALTA 14:58: (three) [place] ORAL) 32 times Medical daily. Branch VITAMIN B 2020-0 Yes Take by Unive rs COMPLEX 2-25 mouth. ity of ORAL 14:58: [place] [address] Medical Branch traZODONE 2020-0 Yes 100mg Take 100 [facility] vers 100 mg 2-25 mg by ity of tablet 14:58: mouth at [place] [address] bedtime. Medical Branch benztropine 2020-0 Yes 1mg Take 1 mg U nivers 1 mg tablet 2-25 by mouth ity of 14:58: daily. [place] [address] Medical Branch DULOXETINE 2020-0 Yes 60mg Take 60 mg U nivers HCL 2-25 by mouth 3 ity of (CYMBALTA 14:58: (three) [place] ORAL) 32 times Medical daily. Branch VITAMIN B 2020-0 Yes Take by Unive rs COMPLEX 2-25 mouth. ity of ORAL 14:58: [place] [address] Medical Branch traZODONE 2020-0 Yes 100mg Take 100 [facility] vers 100 mg 2-25 mg by ity of tablet 14:58: mouth at [place] [address] bedtime. Medical Branch benztropine 2020-0 Yes 1mg Take 1 mg U nivers 1 mg tablet 2-25 by mouth ity of 14:58: daily. [place] [address] Medical Branch DULOXETINE 2020-0 Yes 60mg Take 60 mg U nivers HCL 2-25 by mouth 3 ity of (CYMBALTA 14:58: (three) [place] ORAL) 32 times Medical daily. Branch VITAMIN B 2020-0 Yes Take by Unive rs COMPLEX 2-25 mouth. ity of ORAL 14:58: [place] [address] Medical Branch traZODONE 2020-0 Yes 100mg Take 100 Uni vers 100 mg 2-25 mg by ity of tablet 14:58: mouth at [place] [address] bedtime. Medical Branch benztropine 2020-0 Yes 1mg Take 1 mg U nivers 1 mg tablet 2-25 by mouth ity of 14:58: daily. [place] [address] Medical Branch DULOXETINE 2020-0 Yes 60mg Take 60 mg U nivers HCL 2-25 by mouth 3 ity of (CYMBALTA 14:58: (three) [place] ORAL) 32 times Medical daily. Branch VITAMIN B 2020-0 Yes Take by Unive rs COMPLEX 2-25 mouth. ity of ORAL 14:58: [address] Branch traZODONE 2020-0 Yes 100mg Take 100 Uni vers 100 mg 2-25 mg by ity of tablet 14:58: mouth at [place] [address] bedtime. Medical Branch benztropine 2020-0 Yes 1mg Take 1 mg U nivers 1 mg tablet 2-25 by mouth ity of 14:58: daily. [address] Branch VITAMIN B 2020-0 Yes Take by Unive rs COMPLEX 2-25 mouth. ity of ORAL 14:58: [place] [address] Medical Branch traZODONE 2020-0 Yes 100mg Take 100 Uni vers 100 mg 2-25 mg by ity of tablet 14:58: mouth at [place] [address] bedtime. Medical Branch benztropine 2020-0 Yes 1mg Take 1 mg U nivers 1 mg tablet 2-25 by mouth ity of 14:58: daily. [address] Branch VITAMIN B 2020-0 Yes Take by Unive rs COMPLEX 2-25 mouth. ity of ORAL 14:58: [place] [address] Medical Branch traZODONE 2020-0 Yes 100mg Take 100 Uni vers 100 mg 2-25 mg by ity of tablet 14:58: mouth at [place] [address] bedtime. Medical Branch benztropine 2020-0 Yes 1mg Take 1 mg U nivers 1 mg tablet 2-25 by mouth ity of 14:58: daily. [address] VITAMIN B 2020-0 Yes Take by Unive rs COMPLEX 2-25 mouth. ity of ORAL 14:58: [address] traZODONE 2020-0 Yes 100mg Take 100 Uni vers 100 mg 2-25 mg by ity of tablet 14:58: mouth at [place] [address] bedtime. Medical Branch benztropine 2020-0 Yes 1mg Take 1 mg U nivers 1 mg tablet 2-25 by mouth ity of 14:58: daily. [address] VITAMIN B 2020-0 Yes Take by Unive rs COMPLEX 2-25 mouth. ity of ORAL 14:58: [address] traZODONE 2020-0 Yes 100mg Take 100 Uni vers 100 mg 2-25 mg by ity of tablet 14:58: mouth at [place] [address] bedtime. Medical Branch benztropine 2020-0 Yes 1mg Take 1 mg U nivers 1 mg tablet 2-25 by mouth ity of 14:58: daily. [address] VITAMIN B 2020-0 Yes Take by Unive rs COMPLEX 2-25 mouth. ity of ORAL 14:58: [address] traZODONE 2020-0 Yes 100mg Take 100 Uni vers 100 mg 2-25 mg by ity of tablet 14:58: mouth at [place] [address] bedtime. Medical Branch benztropine 2020-0 Yes 1mg Take 1 mg U nivers 1 mg tablet 2-25 by mouth ity of 14:58: daily. [address] VITAMIN B 2020-0 Yes Take by Unive rs COMPLEX 2-25 mouth. ity of ORAL 14:58: [address] traZODONE 2020-0 Yes 100mg Take 100 Uni vers 100 mg 2-25 mg by ity of tablet 14:58: mouth at [place] [address] bedtime. Medical Branch benztropine 2020-0 Yes 1mg Take 1 mg U nivers 1 mg tablet 2-25 by mouth ity of 14:58: daily. [address] VITAMIN B 2020-0 Yes Take by Unive rs COMPLEX 2-25 mouth. ity of ORAL 14:58: [address] traZODONE 2020-0 Yes 100mg Take 100 Uni vers 100 mg 2-25 mg by ity of tablet 14:58: mouth at [place] [address] bedtime. Medical Branch benztropine 2020-0 Yes 1mg Take 1 mg U nivers 1 mg tablet 2-25 by mouth ity of 14:58: daily. [address] VITAMIN B 2020-0 Yes Take by Unive rs COMPLEX 2-25 mouth. ity of ORAL 14:58: [address] traZODONE 2020-0 Yes 100mg Take 100 Uni vers 100 mg 2-25 mg by ity of tablet 14:58: mouth at [place] [address] bedtime. Medical Branch benztropine 2020-0 Yes 1mg Take 1 mg U nivers 1 mg tablet 2-25 by mouth ity of 14:58: daily. [address] VITAMIN B 2020-0 Yes Take by Unive rs COMPLEX 2-25 mouth. ity of ORAL 14:58: [address] traZODONE 2020-0 Yes 100mg Take 100 Uni vers 100 mg 2-25 mg by ity of tablet 14:58: mouth at [place] [address] bedtime. Medical Branch benztropine 2020-0 Yes 1mg Take 1 mg U nivers 1 mg tablet 2-25 by mouth ity of 14:58: daily. [address] VITAMIN B 2020-0 Yes Take by Unive rs COMPLEX 2-25 mouth. ity of ORAL 14:58: [address] traZODONE 2020-0 Yes 100mg Take 100 Uni vers 100 mg 2-25 mg by ity of tablet 14:58: mouth at [place] [address] bedtime. Medical Branch benztropine 2020-0 Yes 1mg Take 1 mg U nivers 1 mg tablet 2-25 by mouth ity of 14:58: daily. [address] VITAMIN B 2020-0 Yes Take by Unive rs COMPLEX 2-25 mouth. ity of ORAL 14:58: [address] traZODONE 2020-0 Yes 100mg Take 100 Uni vers 100 mg 2-25 mg by ity of tablet 14:58: mouth at [place] [address] bedtime. Medical Branch benztropine 2020-0 Yes 1mg Take 1 mg U nivers 1 mg tablet 2-25 by mouth ity of 14:58: daily. [address] VITAMIN B 2020-0 Yes Take by Unive rs COMPLEX 2-25 mouth. ity of ORAL 14:58: [address] traZODONE 2020-0 Yes 100mg Take 100 Uni vers 100 mg 2-25 mg by ity of tablet 14:58: mouth at [place] [address] bedtime. Medical Branch benztropine 2020-0 Yes 1mg Take 1 mg U nivers 1 mg tablet 2-25 by mouth ity of 14:58: daily. [address] VITAMIN B 2020-0 Yes Take by Unive rs COMPLEX 2-25 mouth. ity of ORAL 14:58: [address] traZODONE 2020-0 Yes 100mg Take 100 Uni vers 100 mg 2-25 mg by ity of tablet 14:58: mouth at [place] [address] bedtime. Medical Branch benztropine 2020-0 Yes 1mg Take 1 mg U nivers 1 mg tablet 2-25 by mouth ity of 14:58: daily. [address] Branch VITAMIN B 2020-0 Yes Take by Unive rs COMPLEX 2-25 mouth. ity of ORAL 14:58: [place] [address] Medical Branch traZODONE 2020-0 Yes 100mg Take 100 Uni vers 100 mg 2-25 mg by ity of tablet 14:58: mouth at [place] [address] bedtime. Medical Branch benztropine 2020-0 Yes 1mg Take 1 mg U nivers 1 mg tablet 2-25 by mouth ity of 14:58: daily. [address] VITAMIN B 2020-0 Yes Take by Unive rs COMPLEX 2-25 mouth. ity of ORAL 14:58: [address] traZODONE 2020-0 Yes 100mg Take 100 Uni vers 100 mg 2-25 mg by ity of tablet 14:58: mouth at [place] [address] bedtime. Medical Branch benztropine 2020-0 Yes 1mg Take 1 mg U nivers 1 mg tablet 2-25 by mouth ity of 14:58: daily. [address] Branch aripiprazol 2020-0 Yes 5mg Take [...] 2-24 by mouth ity of 17:16: daily. [place] 05 [facility] Branch ARIPiprazol 2020-0 Yes 10mg [...] 2-24 by mouth ity of 17:16: daily. [place] [facility] ARIPiprazol 2020-0 Yes 10mg Take 10 mg Univers e 10 mg 2-24 by mouth 2 ity of tablet 17:16: (two) [place] 05 times Medical daily. Branch aripiprazol 2020-0 Yes 5mg Take 5 mg U nivers e (ABILIFY 2-24 by mouth 2 ity of ORAL) 17:16: (two) [place] [address] times Medical daily. Branch benztropine 2020-0 Yes 1mg Take 1 mg U nivers 1 mg tablet 2-24 by mouth ity of 17:16: daily. [place] [address] Medical Branch ARIPiprazol 2020-0 Yes 10mg Take 10 mg Univers e 10 mg 2-24 by mouth 2 ity of tablet 17:16: (two) [place] 05 times Medical daily. Branch DULOXETINE 2020-0 Yes 60mg Take 60 mg U nivers HCL 2-24 by mouth 3 ity of (CYMBALTA 17:15: (three) [place] ORAL) 45 times Medical daily. Branch VITAMIN B 2020-0 Yes Take by Unive rs COMPLEX 2-24 mouth. ity of ORAL 17:15: [place] [address] Medical Branch traZODONE 2020-0 Yes 100mg Take 100 Uni vers 100 mg 2-24 mg by ity of tablet 17:15: mouth at [place] [address] bedtime. Medical Branch DULOXETINE 2020-0 Yes 60mg Take 60 mg U nivers HCL 2-24 by mouth 3 ity of (CYMBALTA 17:15: (three) [place] ORAL) 45 times Medical daily. Branch VITAMIN B 2020-0 Yes Take by Unive rs COMPLEX 2-24 mouth. ity of ORAL 17:15: [place] [address] Medical Branch traZODONE 2020-0 Yes 100mg Take 100 Uni vers 100 mg 2-24 mg by ity of tablet 17:15: mouth at [place] 45 bedtime. Medical Branch DULOXETINE 2020-0 Yes 60mg Take 60 mg U nivers HCL 2-24 by mouth 3 ity of (CYMBALTA 17:15: (three) [place] ORAL) 45 times Medical daily. Branch VITAMIN B 2020-0 Yes Take by Unive rs COMPLEX 2-24 mouth. ity of ORAL 17:15: [place] 45 [facility] Branch traZODONE 2020-0 Yes 100mg Take 100 Uni vers 100 mg 2-24 mg by ity of tablet 17:15: mouth at [place] 45 bedtime. Medical Branch OLANZapine 2020-0 2020- No 20mg Take 20 mg [facility] 20 mg 2-24 -24 by mouth ity of tablet 17:15: 00:00 at [place] 35 :00 bedtime. Medical Branch OLANZapine 2020-0 2020- No 20mg Take 20 mg [facility] 20 mg 2-24 -24 by mouth ity of tablet 17:15: 00:00 at [place] 35 :00 bedtime. Medical Branch OLANZapine 2020-0 2020- No 20mg Take 20 mg [facility] 20 mg 2-24 -24 by mouth ity of tablet 17:15: 00:00 at [place] 35 :00 bedtime. Medical Branch OLANZapine 2020-0 2020- No 10mg Take 10 mg Univers (ZYPREXA) 2-24 -24 by mouth 2 ity of 10 mg 17:15: 00:00 (two) [place] tablet 26 :00 times Medical daily. Branch OLANZapine 2020-0 2020- No 10mg Take 10 mg Univers (ZYPREXA) 2-24 -24 by mouth 2 ity of 10 mg 17:15: 00:00 (two) [place] tablet 26 :00 times Medical daily. Branch OLANZapine 2020-0 2020- No 10mg Take 10 mg Univers (ZYPREXA) 2-24 02-24 by mouth 2 ity of 10 mg 17:15: 00:00 (two) [place] tablet 26 :00 times Medical daily. Branch DULoxetine 2020-0 2020- No Take 3 Univ ers 30 mg 2-24 02-24 capsules ity of capsule 17:15: 00:00 by mouth [place] 09 :00 daily. Medical Branch DULoxetine 2020-0 2020- No Take 3 Univ ers 30 mg 2-24 02-24 capsules ity of capsule 17:15: 00:00 by mouth [place] 09 :00 daily. Medical Branch DULoxetine 2020-0 2020- No Take 3 Univ ers 30 mg 2-24 02-24 capsules ity of capsule 17:15: 00:00 by mouth [place] 09 :00 daily. Medical Branch metoprolol 2020-0 Yes [id number] 50mg Take 1 Un nneka succinate 2-24 tablet by ity o f XL 50 mg 24 00:00: mouth [place] hr tablet 00 daily. Medical Branch metoprolol 2020-0 Yes [id number] 50mg Take 1 Un nneka succinate 2-24 tablet by ity o f XL 50 mg 24 00:00: mouth [place] hr tablet 00 daily. Medical Branch metoprolol 2020-0 Yes [id number] 50mg Take 1 Un nneka succinate 2-24 tablet by ity o f XL 50 mg 24 00:00: mouth [place] hr tablet 00 daily. Medical Branch metoprolol 2020-0 Yes [id number] 50mg Take 1 Un nneka succinate 2-24 tablet by ity o f XL 50 mg 24 00:00: mouth [place] hr tablet 00 daily. Medical Branch metoprolol 2020-0 Yes [id number] 50mg Take 1 Un nneka succinate 2-24 tablet by ity o f XL 50 mg 24 00:00: mouth [place] hr tablet 00 daily. Medical Branch metoprolol 2020-0 Yes [id number] 50mg Take 1 Un nneka succinate 2-24 tablet by ity o f XL 50 mg 24 00:00: mouth [place] hr tablet 00 daily. Medical Branch metoprolol 2020-0 Yes [id number] 50mg Take 1 Un nneka succinate 2-24 tablet by ity o f XL 50 mg 24 00:00: mouth [place] hr tablet 00 daily. Medical Branch metoprolol 2020-0 Yes [id number] 50mg Take 1 Un nneka succinate 2-24 tablet by ity o f XL 50 mg 24 00:00: mouth [place] hr tablet 00 daily. Medical Branch metoprolol 2020-0 Yes [id number] 50mg Take 1 Un nneka succinate 2-24 tablet by ity o f XL 50 mg 24 00:00: mouth [place] hr tablet 00 daily. Medical Branch metoprolol 2020-0 Yes [id number] 50mg Take 1 Un nneka succinate 2-24 tablet by ity o f XL 50 mg 24 00:00: mouth [place] hr tablet 00 daily. Medical Branch metoprolol 2020-0 2020- No [id number] 50mg Take 1 U nivers succinate 10-24- tablet by ity of XL 50 mg 24 00:00: 00:00 mouth [place] hr tablet 00 :00 daily. [facility] metoprolol 0 2020- No [id number] 50mg Take 1 U nivers succinate -23 03- tablet by ity of XL 50 mg 24 00:00: 00:00 mouth [place] hr tablet 00 :00 daily. [facility] metoprolol 2020- No [id number] 50mg Take 1 U nivers succinate -23 03- tablet by ity of XL 50 mg 24 00:00: 00:00 mouth [place] hr tablet 00 :00 daily. [facility] metoprolol 2019- No [id number] 50mg Take 1 U nivers succinate 10-24 tablet by ity of XL 50 mg 24 00:00: 00:00 mouth [place] hr tablet 00 :00 daily. [facility] hydroCHLORO 2020-0 Yes [id number] 25mg Take 1 [facility] thiazide 25 1-30 tablet by ity of mg tablet 00:00: mouth [place] 00 daily. Medical Branch meloxicam 2019-0 Yes [id number] 15mg Take 1 U nivers 15 mg 1-30 tablet by ity of tablet 00:00: mouth [place] 00 daily. Medical Branch metoprolol 2019-0 Yes [id number] 25mg Take 1 Un nneka succinate 1-30 tablet by ity o f XL 25 mg 24 00:00: mouth [place] hr tablet 00 daily. Medical Branch pregabalin 2020-0 Yes [id number] 150mg Take 1 Univers (LYRICA) 1-30 capsule by ity o f 150 mg 00:00: mouth 2 [place] capsule 00 (two) Medical times Branch daily. hydroCHLORO 2020-0 Yes [id number] 25mg Take 1 [facility] thiazide 25 1-30 tablet by ity of mg tablet 00:00: mouth [place] 00 daily. Medical Branch meloxicam 2020-0 Yes [id number] 15mg Take 1 U nivers 15 mg 1-30 tablet by ity of tablet 00:00: mouth [place] 00 daily. Medical Branch metoprolol 2020-0 Yes [id number] 25mg Take 1 Un nneka succinate 1-30 tablet by ity o f XL 25 mg 24 00:00: mouth [place] hr tablet 00 daily. Medical Branch pregabalin 2020-0 Yes [id number] 150mg Take 1 Univers (LYRICA) 1-30 capsule by ity o f 150 mg 00:00: mouth 2 [place] capsule 00 (two) Medical times Branch daily. hydroCHLORO 2020-0 Yes [id number] 25mg Take 1 [facility] thiazide 25 1-30 tablet by ity of mg tablet 00:00: mouth [place] 00 daily. Medical Branch meloxicam 2020-0 Yes [id number] 15mg Take 1 U nivers 15 mg 1-30 tablet by ity of tablet 00:00: mouth [place] 00 daily. Medical Branch pregabalin 2020-0 Yes [id number] 150mg Take 1 Univers (LYRICA) 1-30 capsule by ity o f 150 mg 00:00: mouth 2 [place] capsule 00 (two) Medical times [place] daily. hydroCHLORO 2020-0 Yes [id number] 25mg Take 1 [facility] thiazide 25 1-30 tablet by ity of mg tablet 00:00: mouth [place] 00 daily. Medical Branch meloxicam 2020-0 Yes [id number] 15mg Take 1 U nivers 15 mg 1-30 tablet by ity of tablet 00:00: mouth [place] 00 daily. Medical Branch pregabalin 2020-0 Yes [id number] 150mg Take 1 Univers (LYRICA) 1-30 capsule by ity o f 150 mg 00:00: mouth 2 [place] capsule 00 (two) Medical times [place] daily. hydroCHLORO 2020-0 Yes [id number] 25mg Take 1 [facility] thiazide 25 1-30 tablet by ity of mg tablet 00:00: mouth [place] 00 daily. Medical Branch meloxicam 2020-0 Yes [id number] 15mg Take 1 U nivers 15 mg 1-30 tablet by ity of tablet 00:00: mouth [place] 00 daily. Medical Branch pregabalin 2020-0 Yes [id number] 150mg Take 1 Univers (LYRICA) 1-30 capsule by ity o f 150 mg 00:00: mouth 2 [place] capsule 00 (two) Medical times [place] daily. hydroCHLORO 2020-0 Yes [id number] 25mg Take 1 [facility] thiazide 25 1-30 tablet by ity of mg tablet 00:00: mouth [place] 00 daily. Medical Branch meloxicam 2020-0 Yes [id number] 15mg Take 1 U nivers 15 mg 1-30 tablet by ity of tablet 00:00: mouth [place] 00 daily. Medical Branch pregabalin 2020-0 Yes [id number] 150mg Take 1 Univers (LYRICA) 1-30 capsule by ity o f 150 mg 00:00: mouth 2 [place] capsule 00 (two) Medical times [place] daily. hydroCHLORO 2020-0 Yes [id number] 25mg Take 1 [facility] thiazide 25 1-30 tablet by ity of mg tablet 00:00: mouth [place] 00 daily. Medical Branch meloxicam 2020-0 Yes [id number] 15mg Take 1 U nivers 15 mg 1-30 tablet by ity of tablet 00:00: mouth [place] 00 daily. Medical Branch pregabalin 2020-0 Yes [id number] 150mg Take 1 Univers (LYRICA) 1-30 capsule by ity o f 150 mg 00:00: mouth 2 [place] capsule 00 (two) Medical times [place] daily. hydroCHLORO 2020-0 Yes [id number] 25mg Take 1 [facility] thiazide 25 1-30 tablet by ity of mg tablet 00:00: mouth [place] 00 daily. Medical Branch meloxicam 2020-0 Yes [id number] 15mg Take 1 U nivers 15 mg 1-30 tablet by ity of tablet 00:00: mouth [place] 00 daily. Medical Branch pregabalin 2020-0 Yes [id number] 150mg Take 1 Univers (LYRICA) 1-30 capsule by ity o f 150 mg 00:00: mouth 2 [place] capsule 00 (two) Medical times [place] daily. hydroCHLORO 2020-0 Yes [id number] 25mg Take 1 [facility] thiazide 25 1-30 tablet by ity of mg tablet 00:00: mouth [place] 00 daily. Medical Branch meloxicam 2020-0 Yes [id number] 15mg Take 1 U nivers 15 mg 1-30 tablet by ity of tablet 00:00: mouth [place] 00 daily. Medical Branch pregabalin 2020-0 Yes [id number] 150mg Take 1 Univers (LYRICA) 1-30 capsule by ity o f 150 mg 00:00: mouth 2 [place] capsule 00 (two) Medical times [place] daily. hydroCHLORO 2020-0 Yes [id number] 25mg Take 1 [facility] thiazide 25 1-30 tablet by ity of mg tablet 00:00: mouth [place] 00 daily. Medical Branch meloxicam 2020-0 Yes [id number] 15mg Take 1 U nivers 15 mg 1-30 tablet by ity of tablet 00:00: mouth [place] 00 daily. Medical Branch pregabalin 2020-0 Yes [id number] 150mg Take 1 Univers (LYRICA) 1-30 capsule by ity o f 150 mg 00:00: mouth 2 [place] capsule 00 (two) Medical times Branch daily. hydroCHLORO 2020-0 Yes [id number] 25mg Take 1 [facility] thiazide 25 1-30 tablet by ity of mg tablet 00:00: mouth [place] 00 daily. Medical Branch meloxicam 2020-0 Yes [id number] 15mg Take 1 U nivers 15 mg 1-30 tablet by ity of tablet 00:00: mouth [place] 00 daily. Medical Branch pregabalin 2020-0 Yes [id number] 150mg Take 1 [facility] (LYRICA) 1-30 capsule by ity o f 150 mg 00:00: mouth 2 [place] capsule 00 (two) Medical times Branch daily. hydroCHLORO 2020-0 Yes [id number] 25mg Take 1 [facility] thiazide 25 1-30 tablet by ity of mg tablet 00:00: mouth [place] 00 daily. Medical Branch meloxicam 2020-0 Yes [id number] 15mg Take 1 U nivers 15 mg 1-30 tablet by ity of tablet 00:00: mouth [place] 00 daily. Medical Branch pregabalin 2020-0 Yes [id number] 150mg Take 1 Univers (LYRICA) 1-30 capsule by ity o f 150 mg 00:00: mouth 2 [place] capsule 00 (two) Medical times Branch daily. meloxicam 2020-0 Yes [id number] 15mg Take 1 U nivers 15 mg 1-30 tablet by ity of tablet 00:00: mouth [place] 00 daily. Medical Branch pregabalin 2020-0 Yes [id number] 150mg Take 1 [facility] (LYRICA) 1-30 capsule by ity o f 150 mg 00:00: mouth 2 [place] capsule 00 (two) Medical times Branch daily. meloxicam 2020-0 Yes [id number] 15mg Take 1 U nivers 15 mg 1-30 tablet by ity of tablet 00:00: mouth [place] 00 daily. Medical Branch pregabalin 2020-0 Yes [id number] 150mg Take 1 [facility] (LYRICA) 1-30 capsule by ity o f 150 mg 00:00: mouth 2 [place] capsule 00 (two) Medical times Branch daily. meloxicam 2020-0 Yes [id number] 15mg Take 1 U nivers 15 mg 1-30 tablet by ity of tablet 00:00: mouth [place] 00 daily. Medical Branch pregabalin 2020-0 Yes [id number] 150mg Take 1 [facility] (LYRICA) 1-30 capsule by ity o f 150 mg 00:00: mouth 2 [place] capsule 00 (two) Medical times Branch daily. meloxicam 2020-0 Yes [id number] 15mg Take 1 U nivers 15 mg 1-30 tablet by ity of tablet 00:00: mouth [place] 00 daily. Medical Branch pregabalin 2020-0 Yes [id number] 150mg Take 1 [facility] (LYRICA) 1-30 capsule by ity o f 150 mg 00:00: mouth 2 [place] capsule 00 (two) Medical times Branch daily. meloxicam 2020-0 Yes [id number] 15mg Take 1 U nivers 15 mg 1-30 tablet by ity of tablet 00:00: mouth [place] 00 daily. Medical Branch pregabalin 2020-0 Yes [id number] 150mg Take 1 [facility] (LYRICA) 1-30 capsule by ity o f 150 mg 00:00: mouth 2 [place] capsule 00 (two) Medical times Branch daily. meloxicam 2020-0 Yes [id number] 15mg Take 1 U nivers 15 mg 1-30 tablet by ity of tablet 00:00: mouth [place] 00 daily. Medical Branch pregabalin 2020-0 Yes [id number] 150mg Take 1 [facility] (LYRICA) 1-30 capsule by ity o f 150 mg 00:00: mouth 2 [place] capsule 00 (two) Medical times Branch daily. meloxicam 2020-0 Yes [id number] 15mg Take 1 U nivers 15 mg 1-30 tablet by ity of tablet 00:00: mouth [place] 00 daily. Medical Branch pregabalin 2020-0 Yes [id number] 150mg Take 1 [facility] (LYRICA) 1-30 capsule by ity o f 150 mg 00:00: mouth 2 [place] capsule 00 (two) Medical times Branch daily. meloxicam 2020-0 Yes [id number] 15mg Take 1 U nivers 15 mg 1-30 tablet by ity of tablet 00:00: mouth [place] 00 daily. Medical Branch pregabalin 2020-0 Yes [id number] 150mg Take 1 [facility] (LYRICA) 1-30 capsule by ity o f 150 mg 00:00: mouth 2 [place] capsule 00 (two) Medical times Branch daily. meloxicam 2020-0 Yes [id number] 15mg Take 1 U nivers 15 mg 1-30 tablet by ity of tablet 00:00: mouth [place] 00 daily. Medical Branch pregabalin 2020-0 Yes [id number] 150mg Take 1 [facility] (LYRICA) 1-30 capsule by ity o f 150 mg 00:00: mouth 2 [place] capsule 00 (two) Medical times Branch daily. meloxicam 2020-0 Yes [id number] 15mg Take 1 U nivers 15 mg 1-30 tablet by ity of tablet 00:00: mouth [place] 00 daily. Medical Branch pregabalin 2020-0 Yes [id number] 150mg Take 1 [facility] (LYRICA) 1-30 capsule by ity o f 150 mg 00:00: mouth 2 [place] capsule 00 (two) Medical times Branch daily. meloxicam 2020-0 Yes [id number] 15mg Take 1 U nivers 15 mg 1-30 tablet by ity of tablet 00:00: mouth [place] 00 daily. Medical Branch pregabalin 2020-0 Yes [id number] 150mg Take 1 [facility] (LYRICA) 1-30 capsule by ity o f 150 mg 00:00: mouth 2 [place] capsule 00 (two) Medical times Branch daily. meloxicam 2020-0 Yes [id number] 15mg Take 1 U nivers 15 mg 1-30 tablet by ity of tablet 00:00: mouth [place] 00 daily. Medical Branch pregabalin 2020-0 Yes [id number] 150mg Take 1 [facility] (LYRICA) 1-30 capsule by ity o f 150 mg 00:00: mouth 2 [place] capsule 00 (two) Medical times Branch daily. meloxicam 2020-0 Yes [id number] 15mg Take 1 U nivers 15 mg 1-30 tablet by ity of tablet 00:00: mouth [place] 00 daily. Medical Branch pregabalin 2020-0 Yes [id number] 150mg Take 1 [facility] (LYRICA) 1-30 capsule by ity o f 150 mg 00:00: mouth 2 [place] capsule 00 (two) Medical times Branch daily. meloxicam 2020-0 Yes [id number] 15mg Take 1 U nivers 15 mg 1-30 tablet by ity of tablet 00:00: mouth [place] 00 daily. Medical Branch pregabalin 2020-0 Yes [id number] 150mg Take 1 [facility] (LYRICA) 1-30 capsule by ity o f 150 mg 00:00: mouth 2 [place] capsule 00 (two) Medical times Branch daily. meloxicam 2020-0 Yes [id number] 15mg Take 1 U nivers 15 mg 1-30 tablet by ity of tablet 00:00: mouth [place] 00 daily. Medical Branch pregabalin 2020-0 Yes [id number] 150mg Take 1 [facility] (LYRICA) 1-30 capsule by ity o f 150 mg 00:00: mouth 2 [place] capsule 00 (two) Medical times Branch daily. meloxicam 2020-0 Yes [id number] 15mg Take 1 U nivers 15 mg 1-30 tablet by ity of tablet 00:00: mouth [place] 00 daily. Medical Branch pregabalin 2020-0 Yes [id number] 150mg Take 1 [facility] (LYRICA) 1-30 capsule by ity o f 150 mg 00:00: mouth 2 [place] capsule 00 (two) Medical times Branch daily. meloxicam 2020-0 Yes [id number] 15mg Take 1 U nivers 15 mg 1-30 tablet by ity of tablet 00:00: mouth [place] 00 daily. Medical Branch pregabalin 2020-0 Yes [id number] 150mg Take 1 [facility] (LYRICA) 1-30 capsule by ity o f 150 mg 00:00: mouth 2 [place] capsule 00 (two) Medical times Branch daily. meloxicam 2020-0 Yes [id number] 15mg Take 1 U nivers 15 mg 1-30 tablet by ity of tablet 00:00: mouth [place] 00 daily. Medical Branch meloxicam 2020-0 Yes [id number] 15mg Take 1 U nivers 15 mg 1-30 tablet by ity of tablet 00:00: mouth [place] 00 daily. Medical Branch meloxicam 2020-0 Yes [id number] 15mg Take 1 U nivers 15 mg 1-30 tablet by ity of tablet 00:00: mouth [place] 00 daily. Medical Branch meloxicam 2020-0 Yes [id number] 15mg Take 1 U nivers 15 mg 1-30 tablet by ity of tablet 00:00: mouth [place] 00 daily. Medical Branch meloxicam 2019-0 Yes [id number] 15mg Take 1 U nivers 15 mg 1-30 tablet by ity of tablet 00:00: mouth [place] 00 daily. Medical Branch meloxicam 2019-0 Yes [id number] 15mg Take 1 U nivers 15 mg 1-30 tablet by ity of tablet 00:00: mouth [place] 00 daily. Medical Branch meloxicam 2019-0 Yes [id number] 15mg Take 1 U nivers 15 mg 1-30 tablet by ity of tablet 00:00: mouth [place] 00 daily. Medical Branch meloxicam 2019-0 Yes [id number] 15mg Take 1 U nivers 15 mg 1-30 tablet by ity of tablet 00:00: mouth [place] 00 daily. Medical Branch pregabalin 2019- No [id number] 150mg Take 1 [facility] (LYRICA) 1-30 12-21 capsule by ity of 150 mg 00:00: 00:00 mouth 2 [place] capsule 00 :00 (two) Medical times Branch daily. hydroCHLORO 2019- 2020- No [id number] 25mg Take 1 [facility] thiazide 25 1-30 07-09 tablet by it y of mg tablet 00:00: 00:00 mouth [place] 00 :00 daily. Medical Branch hydroCHLORO 2019-2019- No [id number] 25mg Take 1 [facility] thiazide 25 1-30 07-09 tablet by it y of mg tablet 00:00: 00:00 mouth [place] 00 :00 daily. Medical Branch hydroCHLORO 2019- 2020- No [id number] 25mg Take 1 [facility] thiazide 25 1-30 07-09 tablet by it y of mg tablet 00:00: 00:00 mouth [place] 00 :00 daily. Medical Branch hydroCHLORO 2019- 2020- No [id number] 25mg Take 1 [facility] thiazide 25 1-30 07-09 tablet by it y of mg tablet 00:00: 00:00 mouth [place] 00 :00 daily. Medical Branch metoprolol 2019- 2020- No [id number] 25mg Take 1 U nivers succinate 1-30 02-24 tablet by ity of XL 25 mg 24 00:00: 00:00 mouth [place] hr tablet 00 :00 daily. [facility] metoprolol 2019- 2020- No [id number] 25mg Take 1 U nivers succinate 30 02-24 tablet by ity of XL 25 mg 24 00:00[place] :00 daily. [facility] metoprolol 2019- No [id number] 25mg Take 1 U nivers succinate 30 02-24 tablet by ity of XL 25 mg 24 00:00: 00:[place] :00 daily. [facility] aripiprazol 2018-08 Yes 5mg Take 5 mg U nivers e (ABILIFY 2-17 by mouth 2 ity of ORAL) 15:02: (two) [place] 33 times Medical daily. Branch aripiprazol 2018-08 Yes 5mg Take 5 mg U nivers e (ABILIFY 2-17 by mouth 2 ity of ORAL) 15:02: (two) [place] 33 times Medical daily. Branch aripiprazol 2018-08 Yes 5mg Take 5 mg U nivers e (ABILIFY 2-17 by mouth 2 ity of ORAL) 15:02: (two) [place] 33 times Medical daily. Branch aripiprazol 2018-08 Yes 5mg Take 5 mg U nivers e (ABILIFY 2-17 by mouth 2 ity of ORAL) 15:02: (two) [place] 33 times Medical daily. Branch VITAMIN B 2018-08 Yes Take by Unive rs COMPLEX 0-31 mouth. ity of ORAL 17:11: [place] [address] [facility] Branch traZODONE 2018-08 Yes 100mg Take 100 Uni vers 100 mg 0-31 mg by ity of tablet 17:11: mouth at [place] [address] bedtime. Medical [facility] VITAMIN B 2018-08 Yes Take by Unive rs COMPLEX 0-31 mouth. ity of ORAL 17:11: [place] [address] [facility] traZODONE 2018-08 Yes 100mg Take 100 Uni vers 100 mg 0-31 mg by ity of tablet 17:11: mouth at [place] [address] bedtime. [facility] VITAMIN B 2018-08 Yes Take by Unive rs COMPLEX 0-31 mouth. ity of ORAL 17:11: [place] [address] [facility] Branch traZODONE 2018-08 Yes 100mg Take 100 Uni vers 100 mg 0-31 mg by ity of tablet 17:11: mouth at [place] [address] bedtime. [facility] VITAMIN B 2018-08 Yes Take by Unive rs COMPLEX 0-31 mouth. ity of ORAL 17:11: [place] 25 [facility] traZODONE 2018-1 Yes 100mg Take 100 Uni vers 100 mg 0-31 mg by ity of tablet 17:11: mouth at [place] [address] bedtime. [facility] traZODONE 0 Yes 100mg Take 100 Uni vers 100 mg 8-29 mg by ity of tablet 19:24: mouth at [place] [address] bedtime. [facility] traZODONE 0 Yes 100mg Take 100 Uni vers 100 mg 8-29 mg by ity of tablet 19:24: mouth at [place] [address] bedtime. [facility] traZODONE Yes 100mg Take 100 Uni vers 100 mg 8-29 mg by ity of tablet 19:24: mouth at [place] [address] bedtime. [facility] traZODONE 0 Yes 100mg Take 100 Uni vers 100 mg 8-29 mg by ity of tablet 19:24: mouth at [place] [address] bedtime. [facility] traZODONE Yes 100mg Take 100 Uni vers 100 mg 8-29 mg by ity of tablet 19:24: mouth at [place] [address] bedtime. [facility] traZODONE Yes 100mg Take 100 Uni vers 100 mg 8-29 mg by ity of tablet 19:24: mouth at [place] [address] bedtime. Medical Branch benztropine Yes 1mg Take 1 mg U nivers 1 mg tablet 8-29 by mouth ity of 14:39: daily. [place] [address] Medical Branch ARIPiprazol Yes 10mg Take 10 [...] 8-29 by mouth ity of 14:39: daily. [place] 21 [facility] ARIPiprazol 0 Yes 10mg [...] [place] 21 times Medical daily. Branch DULoxetine 2019-0 Yes Take 3 Unive rs 30 mg [...] ity of 14:39: daily. Medical [facility] ARIPiprazol 2018-0 Yes 10mg Take [...] by mouth ity of 14:39: daily. [place] [facility] ARIPiprazol Yes 10mg Take 10 [...] 21 times Medical daily. Branch metoprolol Yes [id number] 25mg Take 1 Un nneka succinate 8-29 tablet by ity o f XL 25 mg 24 00:00: mouth [place] hr tablet 00 daily. [facility] hydroCHLORO 2019- Yes [id number] 25mg Take 1 Univers thiazide 25 8-29 tablet by ity of mg tablet 00:00: mouth [place] 00 daily. [facility] meloxicam Yes [id number] 15mg Take 1 U nivers 15 mg 8-29 tablet by ity of tablet 00:00: mouth [place] 00 daily. [facility] metoprolol Yes [id number] 25mg Take 1 Un nneka succinate 8-29 tablet by ity o f XL 25 mg 24 00:00: mouth [place] hr tablet 00 daily. [facility] hydroCHLORO 2019-0 Yes [id number] 25mg Take 1 Univers thiazide 25 8-29 tablet by ity of mg tablet 00:00: mouth [place] 00 daily. [facility] meloxicam 0 Yes [id number] 15mg Take 1 U nivers 15 mg 8-29 tablet by ity of tablet 00:00: mouth [place] 00 daily. [facility] metoprolol 0 Yes [id number] 25mg Take 1 Un nneka succinate 8-29 tablet by ity o f XL 25 mg 24 00:00: mouth [place] hr tablet 00 daily. [facility] hydroCHLORO 0 Yes [id number] 25mg Take 1 Univers thiazide 25 8-29 tablet by ity of mg tablet 00:00: mouth [place] 00 daily. [facility] meloxicam 0 Yes [id number] 15mg Take 1 U nivers 15 mg 8-29 tablet by ity of tablet 00:00: mouth [place] 00 daily. [facility] metoprolol 0 Yes [id number] 25mg Take 1 Un nneka succinate 8-29 tablet by ity o f XL 25 mg 24 00:00: mouth [place] hr tablet 00 daily. [facility] hydroCHLORO 0 Yes [id number] 25mg Take 1 Univers thiazide 25 8-29 tablet by ity of mg tablet 00:00: mouth [place] 00 daily. [facility] meloxicam 0 Yes [id number] 15mg Take 1 U nivers 15 mg 8-29 tablet by ity of tablet 00:00: mouth [place] 00 daily. [facility] metoprolol 0 Yes [id number] 25mg Take 1 Un nneka succinate 8-29 tablet by ity o f XL 25 mg 24 00:00: mouth [place] hr tablet 00 daily. [facility] hydroCHLORO 2018-0 Yes [id number] 25mg Take 1 Univers thiazide 25 8-29 tablet by ity of mg tablet 00:00: mouth [place] 00 daily. [facility] meloxicam 0 Yes [id number] 15mg Take 1 U nivers 15 mg 8-29 tablet by ity of tablet 00:00: mouth [place] 00 daily. [facility] metoprolol 2018-0 Yes [id number] 25mg Take 1 Un nneka succinate 8-29 tablet by ity o f XL 25 mg 24 00:00: mouth [place] hr tablet 00 daily. [facility] hydroCHLORO Yes [id number] 25mg Take 1 [facility] thiazide 25 8-29 tablet by ity of mg tablet 00:00: mouth [place] 00 daily. [facility] meloxicam Yes [id number] 15mg Take 1 U nivers 15 mg 8-29 tablet by ity of tablet 00:00: mouth [place] 00 daily. [facility] metoprolol Yes [id number] 25mg Take 1 Un nneka succinate 8-29 tablet by ity o f XL 25 mg 24 00:00: mouth [place] hr tablet 00 daily. [facility] hydroCHLORO Yes [id number] 25mg Take 1 Univers thiazide 25 8-29 tablet by ity of mg tablet 00:00: mouth [place] 00 daily. [facility] meloxicam Yes [id number] 15mg Take 1 U nivers 15 mg 8-29 tablet by ity of tablet 00:00: mouth [place] 00 daily. [facility] metoprolol 2020- No [id number] 25mg Take 1 U nivers succinate 8-28 09-30 tablet by ity of XL 25 mg 24 00:00: 00:[place] tablet 00 :00 daily. [facility] hydroCHLORO 2020- No [id number] 25mg Take 1 Univers thiazide 25 8-28 09-30 tablet by it y of mg tablet 00:00: 00:00 mouth [place] 00 :00 daily. [facility] meloxicam 2020- No [id number] 15mg Take 1 Univers 15 mg 8-28 09-30 tablet by ity of tablet 00:00: 00:00 mouth [place] 00 :00 daily. [facility] metoprolol 2020- No [id number] 25mg Take 1 U nivers succinate 8-29 -30 tablet by ity of XL 25 mg 24 00:00: 00:00 [place] tablet 00 :00 daily. [facility] hydroCHLORO 2020- No [id number] 25mg Take 1 Univers thiazide 25 8-28 09-30 tablet by it y of mg tablet 00:00: 00:00 mouth [place] 00 :00 daily. [facility] Branch meloxicam 2020- No [id number] 15mg Take 1 Univers 15 mg 8-29 01-30 tablet by ity of tablet 00:00: 00:00 mouth [place] 00 :00 daily. Medical Branch Dose 2019- No Unknown 7 00:00: 00 Dose 2019-0 No Unknown 7 00:00: 00 Dose 2019-0 No Unknown 7 00:00: 00 Dose 2019-0 No Unknown 7 00:00: 00 Dose 2019-0 No Unknown 7 00:00: 00 Dose 2019-0 No Unknown 7 00:00: 00 METOPROLOL 2019- No [id number] TAKE 1 U nivers SUCCINATE 7-06 07-29 TABLET BY ity of XL 25 mg 24 00:00: 00:[place]OUTH [place] tablet 00 :00 EVERY DAY Medic al Branch METOPROLOL 2019- No [id number] TAKE 1 U nivers SUCCINATE 7-06 07- TABLET BY ity of XL 25 mg 24 00:00: 00:00 [place]OUTH [place] tablet 00 :00 EVERY DAY Medic al Branch hydroCHLORO 2019- No [id number] 25mg Take 1 [facility] thiazide 25 5-30 -29 tablet by it y of mg tablet 00:00: 00:00 mouth [place] 00 :00 daily. Medical [facility] meloxicam 2019- No [id number] 7.5mg Take 1 Univers (MOBIC) 7.5 5-30 -29 tablet by it y of mg tablet 00:00: 00:00 mouth [place] 00 :00 daily. [facility] hydroCHLORO 2019- No [id number] 25mg Take 1 Univers thiazide 25 -30 -29 tablet by it y of mg tablet 00:00: 00:00 mouth [place] 00 :00 daily. [facility] meloxicam 2019- No [id number] 7.5mg Take 1 Univers (MOBIC) 7.5 5-30 [...] by mouth ity of tablet 20:00: at [place] 25 bedtime. Medical Branch DULOXETINE 2019-0 Yes 60mg Take 60 mg U nivers HCL 4-23 by mouth 3 ity of (CYMBALTA 20:00: (three) [place] ORAL) 25 times Medical daily. Branch OLANZapine 2019-0 Yes 20mg Take 20 mg U nivers 20 mg 4-23 by mouth ity of tablet 20:00: at [place] 25 bedtime. Medical Branch DULOXETINE 2019-0 Yes 60mg Take 60 mg U nivers HCL 4-23 by mouth 3 ity of (CYMBALTA 20:00: (three) [place] ORAL) 25 times Medical daily. Branch OLANZapine 2019-0 Yes 20mg Take 20 mg U nivers 20 mg 4-23 by mouth ity of tablet 20:00: at [place] 25 bedtime. Medical Branch DULOXETINE 2019-0 Yes 60mg Take 60 mg U nivers HCL 4-23 by mouth 3 ity of (CYMBALTA 20:00: (three) [place] ORAL) 25 times Medical daily. Branch OLANZapine 2019-0 Yes 20mg Take 20 mg U nivers 20 mg 4-23 by mouth ity of tablet 20:00: at [place] 25 bedtime. Medical Branch DULOXETINE 2019-0 Yes 60mg Take 60 mg U nivers HCL 4-23 by mouth 3 ity of (CYMBALTA 20:00: (three) [place] ORAL) 25 times Medical daily. Branch OLANZapine 2019-0 Yes 20mg Take 20 mg U nivers 20 mg 4-23 by mouth ity of tablet 20:00: at [place] 25 bedtime. Medical Branch aripiprazol 2019-0 Yes [...] by mouth ity of tablet 20:00: at [place] 25 bedtime. Medical Branch aripiprazol 2019-0 Yes [...] by mouth ity of tablet 20:00: at [place] 25 bedtime. Medical Branch aripiprazol 2019-0 Yes [...] by mouth ity of tablet 20:00: at [place] 25 bedtime. Medical Branch aripiprazol 2019-0 Yes [...] by mouth ity of tablet 20:00: at [place] 25 bedtime. Medical Branch aripiprazol 2019-0 Yes 5mg Take 5 mg U nivers e (ABILIFY 4-23 by mouth 2 ity of ORAL) 20:00: (two) [place] 25 times Medical [facility]. Branch VITAMIN B Yes Take by Unive rs COMPLEX 3-28 mouth. ity of ORAL 16:11: [address] VITAMIN B Yes Take by Unive rs COMPLEX 3-28 mouth. ity of ORAL 16:11: [address] VITAMIN B Yes Take by Unive rs COMPLEX 3-28 mouth. ity of ORAL 16:11: [address] VITAMIN B Yes Take by Unive rs COMPLEX 3-28 mouth. ity of ORAL 16:11: [address] VITAMIN B Yes Take by Unive rs COMPLEX 3-28 mouth. ity of ORAL 16:11: [address] VITAMIN B Yes Take by Unive rs COMPLEX 3-28 mouth. ity of ORAL 16:11: [address] amlodipine No 1mg 5 mg tablet 2-19 00:00: 00 amlodipine 0 No 1mg 5 mg tablet 2-19 00:00: 00 amlodipine 0 No 1mg 5 mg tablet 2-19 00:00: 00 amlodipine 2018 No 1mg 10 mg 2-11 tablet 00:00: 00 amlodipine 2018 No 1mg 10 mg 2-11 tablet 00:00: 00 amlodipine 2018 No 1mg 10 mg 2-11 tablet 00:00: 00 amlodipine 2017-08 No 1mg 10 mg 0-15 tablet 00:00: 00 lisinopril 2018 No 1mg 10 0-15 mg-hydrochl 00:00: orothiazide 00 12.5 mg tablet amlodipine 2017-08 No 1mg 10 mg 0-15 tablet 00:00: 00 lisinopril 2017-08 No 1mg 10 0-15 mg-hydrochl 00:00: orothiazide 00 12.5 mg tablet amlodipine 2018- No 1mg 10 mg 0-15 tablet 00:00: 00 lisinopril 2018- No 1mg 10 0-15 mg-hydrochl 00:00: orothiazide 00 12.5 mg tablet amlodipine 0 No 1mg 10 mg 9-20 tablet 00:00: 00 amlodipine 2018-0 No 1mg 10 mg 9-20 tablet 00:00: 00 amlodipine [id number] No 1mg 10 mg 9-20 tablet 00:00: [...] 8-15 tablet 00:00: 00 cyclobenzap 2018-0 Yes [id number] Bid prn Univers rine 10 mg 8-02 ity of tablet 00:00: [address] Branch cyclobenzap 2018-0 Yes [id number] Bid prn Univers rine 10 mg 8-02 ity of tablet 00:00: [address] cyclobenzap 2018-0 Yes [id number] Bid prn Univers rine 10 mg 8-02 ity of tablet 00:00: [address] cyclobenzap 2018-0 Yes [id number] Bid prn Univers rine 10 mg 8-02 ity of tablet 00:00: [address] Branch cyclobenzap 2018-0 Yes [id number] Bid prn Univers rine 10 mg 8-02 ity of tablet 00:00: [address] cyclobenzap 2018-0 Yes [id number] Bid prn Univers rine 10 mg 8-02 ity of tablet 00:00: [place] 00 Medical Branch cyclobenzap 2018-0 Yes [id number] Bid prn Univers rine 10 mg 8-02 ity of tablet 00:00: [place] 00 Medical Branch cyclobenzap 2018-0 Yes [id number] Bid prn Univers rine 10 mg 8-02 ity of tablet 00:00: [place] 00 Medical Branch cyclobenzap 2018-0 Yes [id number] Bid prn Univers rine 10 mg 8-02 ity of tablet 00:00: [place] 00 Medical Branch cyclobenzap 2018-0 Yes [id number] Bid prn Univers rine 10 mg 8-02 ity of tablet 00:00: [place] 00 Medical Branch cyclobenzap 2018-0 2020- No [id number] Bid prn Univers rine 10 mg 8-02 02-24 ity of tablet 00:00: 00:00 [place] 00 :00 Medical Branch cyclobenzap 2018-0 2020- No [id number] Bid prn Univers rine 10 mg 8-10 02-24 ity of tablet 00:00: 00:00 [place] 00 :00 Medical Branch cyclobenzap 2018-0 2020- No [id number] Bid prn Univers rine 10 mg 8-10 02-24 ity of tablet 00:00: 00:00 [place] 00 :00 Medical Branch amlodipine 2018-0 No [...] 5-26 12.5 mg 00:00: tablet 00 hydrochloro 2015-0 No 1mg thiazide 5-26 12.5 mg 00:00: tablet 00 hydrochloro 2015-0 No 1mg thiazide 5-26 12.5 mg 00:00: tablet furosemide 2015-0 No 1mg 40 mg 5-19 tablet 00:00: [...] 5-19 capsule 00:00: 00 DULoxetine 2016-0 Yes [id number] Reynold sey HCl 30 MG 3-16 Seybold oral 00:00: - Capsule 00 Externa Delayed l Release Sprinkle hydrOXYzine 2016-0 Yes [id number] Ke lsey HCl 25 MG 3-16 Seybold oral Tablet 00:00: - 00 Externa l DULoxetine 2016-0 Yes [id number] Reynold sey HCl 30 MG 3-16 Seybold oral 00:00: - Capsule 00 Externa Delayed l Release Sprinkle hydrOXYzine 2016-0 Yes [id number] Ke lsey HCl 25 MG 3-16 Seybold oral Tablet 00:00: - 00 Externa l DULoxetine 2016-0 Yes Jelena HCl 30 MG 3-16 Seybold oral 00:00: - Capsule 00 Externa Delayed l Release Sprinkle hydrOXYzine 2016-0 Yes Jelena HCl 25 MG 3-16 Seybold oral Tablet 00:00: - 00 Externa l DULoxetine 2016-0 Yes [id number] Reynold sey HCl 30 MG 3-16 Seybold oral 00:00: - Capsule 00 Externa Delayed l Release Sprinkle hydrOXYzine 2015-0 Yes [id number] Ke lsey HCl 25 MG 3-16 Seybold oral Tablet 00:00: - 00 Externa l DULoxetine 2016-0 Yes [id number] Reynold sey HCl 30 MG 3-16 Seybold oral 00:00: - Capsule 00 Externa Delayed l Release Sprinkle hydrOXYzine 2016-0 Yes [id number] Ke lsey HCl 25 MG 3-16 Seybold oral Tablet 00:00: - 00 Externa l DULoxetine 2016-0 Yes [id number] Reynold sey HCl 30 MG 3-16 Seybold oral 00:00: - Capsule 00 Externa Delayed l Release Sprinkle hydrOXYzine 2016-0 Yes [id number] Ke lsey HCl 25 MG 3-16 Seybold oral Tablet 00:00: - 00 Externa l DULoxetine 2016-0 2023- No [id number] Ke lsey HCl 30 MG 3-16 04-24 Seybold oral 00:00: 00:00 - Capsule 00 :00 Externa Delayed l Release Sprinkle hydrOXYzine 2015-0 2023- No [id number] K elsey HCl 25 MG 3-16 04-24 [...] l MODERNA COVID-19 BIVALENT 2022-08-28 Completed Jelena ybold BOOSTER VACCINE 00:00:00 - Externa l MODERNA COVID-19 BIVALENT 2022-08-28 Completed Jelena Seybold BOOSTER VACCINE 00:00:00 - Externa l MODERNA COVID-19 BIVALENT 2022-08-28 Completed Jelena ybold VACCINE MODERNA 00:00:00 - Externa l COVID-19 BIVALENT 2022-08-28 Completed Jelena Seybold VACCINE MODERNA 00:00:00 - Externa l Moderna [...] Protein, Pf Covid-19 Vaccine 2021-09-07 Completed Jelena S eybold Moderna (Spikevax), 00:00:00 - Ext ernal Mrna-lnp, Bradley Protein, Pf Covid-19 Vaccine 2021-09-07 Completed Jelena Umaña eybold Moderna (Spikevax), 00:00:00 - Ext ernal Mrna-lnp, [place] Protein, Pf Tdap- (Boostrix, 2019-04-29 Completed Jelena S eybold [...] Reynold sey Seybold Polysaccharide 00:00:00 - External DTaP Unspecified 2009-04-17 Completed [...] - External DTaP Unspecified 2009-04-17 Completed Jelena shahboconstance 00:00:00 - External Hepatitis A 2009-04-17 Completed Jelena Seybol d 00:00:00 - External HPV 4 (Human 2009-04-17 Completed Jelena Seybo ld Papillomavirus) 00:00:00 - Externa l Pneumococcal Vaccine, 2009-04-17 Completed Reynold y Seybold Conjugate 7 00:00:00 - External HPV 4 (Human 2008-04-14 Completed Jeelna Seybo ld Papillomavirus) 00:00:00 - Externa l [...] Completed Jelena Eaton old Mcv4,unspecified 00:00:00 - Postdoctoral Scientist 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 Hepatitis A 2008-02-18 Completed Jelena Seybol d 00:00:00 - External HPV 4 (Human 2008-02-18 Completed Jelena Seybo ld Papillomavirus) 00:00:00 - Externa l Meningococcal 2008-02-18 Completed Jelena Seyb old Mcv4,unspecified 00:00:00 - Postdoctoral Scientist 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 Hepatitis A 2008-02-18 Completed Jelena Seybol d 00:00:00 - External HPV 4 (Human 2008-02-18 Completed Jelena Seybo ld Papillomavirus) 00:00:00 - Externa l Meningococcal 2008-02-18 Completed Jelena Seyb old Mcv4,unspecified 00:00:00 - Postdoctoral Scientist 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 Hepatitis A 2008-02-18 Completed Jelena Seybol d 00:00:00 - External Hepatitis A 2008-02-18 Completed Jelena Seybol d 00:00:00 - External HPV 4 (Human 2008-02-18 Completed Jelena Seybo ld Papillomavirus) 00:00:00 - Externa l Meningococcal 2008-02-18 Completed Jelena Seyb old Mcv4,unspecified 00:00:00 - Postdoctoral Scientist 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 Hepatitis A 2008-02-18 Completed Jelena Seybol d 00:00:00 - External HPV 4 (Human 2008-02-18 Completed Jelena Seybo ld Papillomavirus) 00:00:00 - Externa l Meningococcal 2008-02-18 Completed Jelena Seyb old Mcv4,unspecified 00:00:00 - Postdoctoral Scientist 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 HPV 4 (Human 2008-02-18 Completed Jelena Seybo ld Papillomavirus) 00:00:00 - Externa l Meningococcal 2008-02-18 Completed Jelena Seyb old Mcv4,unspecified 00:00:00 - Postdoctoral Scientist 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 Hepatitis A 2008-02-18 Completed Jelena Seybol d 00:00:00 - External HPV 4 (Human 2008-02-18 Completed Jelena Seybo ld Papillomavirus) 00:00:00 - Externa l Meningococcal 2008-02-18 Completed Jelena Seyb old Mcv4,unspecified 00:00:00 - Postdoctoral Scientist 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 Hepatitis A 2008-02-18 Completed Jelena Seybol d 00:00:00 - External HPV 4 (Human 2008-02-18 Completed Jelena Seybo ld Papillomavirus) 00:00:00 - Externa l Meningococcal 2008-02-18 Completed Jelena Seyb old Mcv4,unspecified 00:00:00 - Postdoctoral Scientist 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 Hepatitis A 2008-02-18 Completed Jelena Seybol d 00:00:00 - External HPV 4 (Human 2008-02-18 Completed Jelena Ashley ld Papillomavirus) 00:00:00 - Externa l Meningococcal 2008-02-18 Completed Jelena rod Mcv4,unspecified 00:00:00 - Postdoctoral Scientist 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 Hepatitis A 2008-02-18 Completed Jelena Eatonol d 00:00:00 - External HPV 4 (Human 2008-02-18 Completed Jelena Eatono ld Papillomavirus) 00:00:00 - Externa l Meningococcal 2008-02-18 Completed Jelena Eaton old Mcv4,unspecified 00:00:00 - Postdoctoral Scientist 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 Td (adult), 2 2006-05-25 [...] - External Varicella Vaccine 2002-04-21 Completed Jelena Malcolmybmarcel 00:00:00 - External Varicella Vaccine 2002-04-21 Completed [...] External OPV- Oral Polio 1997-04-05 Completed Jelena Malcolm [...] rtussis OPV- Oral Polio 1997-04-05 Completed Jelena henley Vaccine 00:00:00 - External DTP- 1996-08-05 Completed [...] - Exter nal DTP- 1996-08-05 Completed Jelena Eatonold Diphtheria,Tetanus,Pe 00:00:00 - E xternal rtussis HIB- Haemophilus 1996-08-05 Completed Jelena S eybold Influenzae Type B 00:00:00 - Exter nal DTP- 1996-08-05 Completed Jelena Eatonold Diphtheria,Tetanus,Pe 00:00:00 - E xternal rtussis HIB- [...] - External MMR- Measles, Mumps, 1996-05-30 Completed Ashlei ey Seybold Rubella 00:00:00 - External MMR- [...] 00:00:00 - External DTP- 1993 Completed Jelena Seybold Diphtheria,Tetanus,Pe 00:00:00 [...] Jelena Malcolm ybold Vaccine 00:00:00 - External Hepatitis B, [...] - External Hepatitis B, 1993 Completed Jelena Malcolmybo ld Unspecified 00:00:00 - External Hepatitis B, [...] - External Hepatitis B, 1993 Completed Jelena Malcolmybo ld Unspecified 00:00:00 - External Hepatitis B, 1993 Completed Jelena Malcolmybo ld Unspecified 00:00:00 - External Hepatitis B, 1993 Completed Jelena Setiffanyo ld Unspecified 00:00:00 - External Vital Signs Vital Name Observation Time Observation Value Comments Source Systolic blood 2023-02-18 16:01:00 141 mm[Hg] Jelena Seybold - pressure External Diastolic blood 2023-02-18 16:01:00 91 mm[Hg] Beth y Seybold - pressure External Heart rate 2023-02-18 16:01:00 77 /min Jelenalit shahboconstance - External Body temperature 2023-02-18 16:01:00 35.39 Mera Ashlie shah Seybold - External Respiratory rate 2023-02-18 16:01:00 14 /min Ashlie shah Seybold - External Body height 2023-02-18 16:01:00 160 cm Jelenalit shahbold - External Body weight 2023-02-18 16:01:00 130.636 kg Jelena Umaña eybold - External BMI 2023-02-18 16:01:00 51.02 kg/m2 Jelena S eybold - External Systolic blood 2023-01-28 15:56:00 144 mm[Hg] Jelena Seybold - pressure External Diastolic blood 2023-01-28 15:56:00 92 mm[Hg] Reynoldse y Seybold - pressure External Heart rate 2023-01-28 15:56:00 80 /min Jelena Leeroy shahbold - External Respiratory rate 2023-01-28 15:56:00 16 /min Ashlie ey Seybold - External Systolic blood 2022-12-29 14:50:00 149 mm[Hg] Jelena Seybold - pressure External Diastolic blood 2022-12-29 14:50:00 90 mm[Hg] Kelse y Seybold - pressure External Heart rate 2022-12-29 14:50:00 78 /min Jelena Umaña eybold - External Body temperature 2022-12-29 14:50:00 [...] External BMI 2022-12-08 15:56:00 43.40 kg/m2 Jelena S eybold - External Systolic blood 2022-10-28 15:06:00 129 mm[Hg] Jelena Seybold - pressure External Diastolic blood 2022-10-28 15:06:00 86 mm[Hg] Kelse y Seybold - pressure External [...] External Diastolic blood 2022-10-10 14:33:00 100 mm[Hg] Reynoldse y Seybold - pressure External [...] External Diastolic blood 2022-09-24 16:23:00 94 mm[Hg] Reynoldse y Seybold - pressure External Heart rate 2022-09-24 16:23:00 106 /min Jelena S eybold - External Body temperature 2022-09-24 16:23:00 36.67 Mera Ashlie shah Seybold - External Respiratory rate 2022-09-24 16:23:00 [...] 126 mm[Hg] Univer sity of pressure [facility] Diastolic blood 2020-09-07 15:09:00 88 mm[Hg] Unive rsity of pressure [facility] Heart rate 2020-09-07 15:09:00 76 /min [facility] Body height 2020-09-07 15:09:00 160 cm [facility] Body weight 2020-09-07 15:09:00 114.306 kg [facility] BMI 2020-09-07 15:09:00 44.64 kg/m2 [facility] [place] [facility] Systolic blood 2020-09-07 15:09:00 126 mm[Hg] Univer sity of pressure [place] [facility] Diastolic blood 2020-09-07 15:09:00 88 mm[Hg] Unive rsity of pressure [place] [facility] Heart rate 2020-09-07 15:09:00 76 /min [facility] [place] [facility] Body height 2020-09-07 15:09:00 160 cm [facility] [place] [facility] Body weight 2020-09-07 15:09:00 114.306 kg [facility] [place] [facility] BMI 2020-09-07 15:09:00 44.64 kg/m2 [facility] [place] [facility] Respiratory rate 2020-08-02 16:44:00 20 /min [facility] [place] [facility] Body height 2020-08-02 16:44:00 160 cm [facility] [place] [facility] Body weight 2020-08-02 16:44:00 114.352 kg [facility] [place] [facility] BMI 2020-08-02 16:44:00 44.66 kg/m2 [facility] [place] [facility] Systolic blood 2020-08-02 16:44:00 113 mm[Hg] Univer sity of pressure [place] [facility] Diastolic blood 2020-08-02 16:44:00 66 mm[Hg] Unive rsity of pressure [place] [facility] Heart rate 2020-08-02 16:44:00 76 /min [facility] [place] [facility] Body temperature 2020-08-02 16:44:00 36 Mera [facility] [place] [facility] Systolic blood 2020-05-17 16:06:00 125 mm[Hg] Univer sity of pressure [place] [facility] Diastolic blood 2020-05-17 16:06:00 76 mm[Hg] Unive rsity of pressure [place] [facility] Heart rate 2020-05-17 16:06:00 93 /min [facility] [place] [facility] Body temperature 2020-05-17 16:06:00 36.44 Mera [facility] [place] [facility] Respiratory rate 2020-05-17 16:06:00 18 /min [facility] [place] [facility] Body height 2020-05-17 16:06:00 160 cm [facility] [place] [facility] Body weight 2020-05-17 16:06:00 105.688 kg [facility] [place] [facility] BMI 2020-05-17 16:06:00 41.27 kg/m2 [facility] [place] [facility] Systolic blood 2020-03-08 15:04:00 108 mm[Hg] Univer sity of pressure [place] [facility] Diastolic blood 2020-03-08 15:04:00 69 mm[Hg] Unive rsity of pressure [place] [facility] Heart rate 2020-03-08 15:04:00 74 /min [facility] [place] [facility] Body temperature 2020-03-08 15:04:00 36.61 Mera [facility] Respiratory rate 2020-03-08 15:04:00 20 /min [facility] Body height 2020-03-08 15:04:00 160 cm [facility] Body weight 2020-03-08 15:04:00 112.583 kg [facility] BMI 2020-03-08 15:04:00 43.97 kg/m2 [facility] Systolic blood 2019-10-25 14:56:00 128 mm[Hg] [facility] Diastolic blood 2019-10-25 14:56:00 92 mm[Hg] Unive rsity of pressure [facility] Heart rate 2019-10-25 14:56:00 72 /min [facility] Body temperature 2019-10-25 14:56:00 36.67 Mera [facility] Body height 2019-10-25 14:56:00 160 cm [facility] Body weight 2019-10-25 14:56:00 110.904 kg [facility] BMI 2019-10-25 14:56:00 43.31 kg/m2 [facility] Oxygen saturation in 2019-10-25 14:56:00 99 /min [facility] of Arterial blood by [facility] Pulse oximetry Branch Systolic blood 2019-10-24 17:13:00 120 mm[Hg] [facility] Diastolic blood 2019-10-24 17:13:00 81 mm[Hg] Unive rsity of pressure [facility] Heart rate 2019-10-24 17:13:00 75 /min [facility] Respiratory rate 2019-10-24 17:13:00 19 /min [facility] Body height 2019-10-24 17:13:00 160 cm [facility] Body weight 2019-10-24 17:13:00 110.133 kg [facility] BMI 2019-10-24 17:13:00 43.01 kg/m2 [facility] Oxygen saturation in 2019-10-24 17:13:00 99 /min University Arterial blood by [facility] Pulse oximetry Branch Systolic blood 2019-09-29 16:38:00 93 mm[Hg] [facility] Diastolic blood 2019-09-29 16:38:00 64 mm[Hg] [facility] Heart rate 2019-09-29 16:38:00 77 /min [facility] Body temperature 2019-09-29 16:38:00 36.5 Mera [facility] Respiratory rate 2019-09-29 16:38:00 20 /min [facility] Body height 2019-09-29 16:38:00 160 cm [facility] Body weight 2019-09-29 16:38:00 109.77 kg [facility] BMI 2019-09-29 16:38:00 42.87 kg/m2 [facility] Systolic blood 2019-04-28 14:39:00 105 mm[Hg] [facility] Diastolic blood 2019-04-28 14:39:00 62 mm[Hg] [facility] Heart rate 2019-04-28 14:39:00 87 /min [facility] Body temperature 2019-04-28 14:39:00 36.94 Mera [facility] Respiratory rate 2019-04-28 14:39:00 18 /min [facility] Body height 2019-04-28 14:39:00 160 cm [facility] Body weight 2019-04-28 14:39:00 123.832 kg [facility] BMI 2019-04-28 14:39:00 48.36 kg/m2 [facility] BP Systolic 2022-09-10 11:46:00 168 mm[Hg] BP [...] Source Performed REFERRAL- 2020-09-27 06:01:00 Doctor Lucina, [facility] REQUEST/RESPONSE [facility] MR KNEE LEFT WO CONTRAST 2020-08-20 18:12:04 Alexandre Delgado [facility] NOTICE OF PRIVACY 2020-08-02 06:01:00 Doctor Lucina, [facility] PRACTICES [facility] AGREEMENTS AUTHORIZATIONS 2020-08-02 06:01:00 Doctor Unassigned, [facility] AND IRREVOCABLE [facility] ASSIGNMENTS (FORM 2001) VACCINATIONS - CONSENTS, 2020-05-17 05:01:00 Doctor Faithssigned, [facility] ELIGIBILITY, HISTORY [facility] XR KNEE 3 VW LEFT 2020-03-16 13:13:36 Alexandre Delgado [facility] SCANNED LAB RESULTS 2020-03-08 05:01:00 [facility] ASSIGNMENT OF BENEFITS 2020-02-10 13:57:41 Doctor [facility]igned, [facility] BCPC - PRESCRIPTION / 2019-09-08 06:01:00 Doctor Unasslindsay, [facility] ORDER [facility] AGREEMENTS AUTHORIZATIONS 2019-04-28 05:01:00 Doctor Faithsslindsay, [facility] AND IRREVOCABLE [facility] ASSIGNMENTS (FORM 2001) 72441 Ecg Routine Ecg 2018-06-14 00:00:00 W/least 12 Lds W/i r Plan of Care Planned Activity Planned Date Details Comments Source Goal Plan of Care Note [code = 17879-4] Goal Plan of Care Note [code = 64655-0] Goal Plan of Care Note [code = 16917-2] Goal Plan of Care Note [code = 59661-0] Goal Plan of Care Note [code = 63353-1] Goal Plan of Care Note [code = 62138-5] Goal Plan of Care Note [code = 33801-3] Goal Plan of Care Note [code = 78039-9] Goal Plan of Care Note [code = 96346-0] Goal Plan of Care Note [code = 83933-8] Goal Plan of Care Note [code = 61477-5] Goal Plan of Care Note [code = 42715-3] Goal Plan of Care Note [code = 74527-1] Goal Plan of Care Note [code = 33705-5] Goal Plan of Care Note [code = 70148-5] Goal Plan of Care Note [code = 76235-2] Goal Plan of Care Note [code = 52451-8] Goal Plan of Care Note [code = 58803-5] Goal Plan of Care Note [code = 87902-8] Goal Plan of Care Note [code = 10823-0] Goal Plan of Care Note [code = 17540-4] Goal Plan of Care Note [code = 17654-1] Goal Plan of Care Note [code = 99891-6] Goal Plan of Care Note [code = 13151-6] Goal Plan of Care Note [code = 12482-7] Goal Plan of Care Note [code = 90689-3] Goal Plan of Care Note [code = 52812-4] Goal Plan of Care Note [code = 95011-7] Goal Plan of Care Note [code = 35536-1] Goal Plan of Care Note [code = 34275-9] Goal Plan of Care Note [code = 24566-4] Goal Plan of Care Note [code = 85497-7] Goal Plan of Care Note [code = 91439-1] Goal Plan of Care Note [code = 53316-7] Goal Plan of Care Note [code = 30029-9] Goal Plan of Care Note [code = 26162-3] Goal Plan of Care Note [code = 94050-3] Goal Plan of Care Note [code = 07482-5] Goal Plan of Care Note [code = 08434-1] Goal Plan of Care Note [code = 94014-3] Goal Plan of Care Note [code = 23279-6] Goal Plan of Care Note [code = 95872-2] Goal Plan of Care Note [code = 88975-5] Goal Plan of Care Note [code = 35137-7] Goal Plan of Care Note [code = 65031-5] Goal Plan of Care Note [code = 32863-2] Goal Plan of Care Note [code = 51105-4] Goal Plan of Care Note [code = 80260-8] Goal Plan of Care Note [code = 37989-1] Goal Plan of Care Note [code = 79378-6] Goal Plan of Care Note [code = 29316-3] Goal Plan of Care Note [code = 62096-9] Goal Plan of Care Note [code = 08116-6] Goal Plan of Care Note [code = 04261-6] Goal Plan of Care Note [code = 95929-6] Goal Plan of Care Note [code = 70241-3] Goal Plan of Care Note [code = 46532-8] Goal Plan of Care Note [code = 20008-5] Goal Plan of Care Note [code = 36020-1] Goal Plan of Care Note [code = 53578-1] Goal Plan of Care Note [code = 78837-4] Goal Plan of Care Note [code = 76171-4] Goal Plan of Care Note [code = 28751-6] Goal Plan of Care Note [code = 23462-8] Goal Plan of Care Note [code = 69954-0] Goal Plan of Care Note [code = 00320-8] Goal Plan of Care Note [code = 72387-8] Goal Plan of Care Note [code = 95425-3] Goal Plan of Care Note [code = 21558-7] Goal Plan of Care Note [code = 31945-7] Goal Plan of Care Note [code = 36782-4] Goal Plan of Care Note [code = 38020-6] Goal Plan of Care Note [code = 77971-5] Goal Plan of Care Note [code = 25818-0] Goal Plan of Care Note [code = 67388-0] Goal Plan of Care Note [code = 84490-8] Goal Plan of Care Note [code = 55321-0] Goal Plan of Care Note [code = 04459-2] Goal Plan of Care Note [code = 70061-2] Goal Plan of Care Note [code = 97941-1] Goal Plan of Care Note [code = 63238-8] Goal Plan of Care Note [code = 46838-1] Goal Plan of Care Note [code = 48406-8] Goal Plan of Care Note [code = 76933-6] Goal Plan of Care Note [code = 81662-0] Goal Plan of Care Note [code = 03588-3] Goal Plan of Care Note [code = 64514-7] Goal Plan of Care Note [code = 08642-9] Goal Plan of Care Note [code = 67805-2] Goal Plan of Care Note [code = 37968-0] Goal Plan of Care Note [code = 47118-4] Goal Plan of Care Note [code = 29425-5] Goal Plan of Care Note [code = 62542-5] Goal Plan of Care Note [code = 58850-8] Goal Plan of Care Note [code = 58141-2] Goal Plan of Care Note [code = 19493-3] Goal Plan of Care Note [code = 40745-1] Goal Plan of Care Note [code = 19478-1] Goal Plan of Care Note [code = 42853-1] Goal Plan of Care Note [code = 61671-7] Goal Plan of Care Note [code = 74251-0] Goal Plan of Care Note [code = 90895-3] Goal Plan of Care Note [code = 59946-6] Goal Plan of Care Note [code = 80861-1] Goal Plan of Care Note [code = 29367-2] Goal Plan of Care Note [code = 35230-3] Goal Plan of Care Note [code = 88289-4] Goal Plan of Care Note [code = 10398-5] Goal Plan of Care Note [code = 10156-1] Encounters Start End Encounter Admission Attending Care Care Encounter Source Date/Time Date/Time Type Type Clinicians Facility Department ID 2023-04-28 2023-04-28 Outpatient JELENA VICK [id number] Jelena 09:00:00 09:00:00 DARLIN Seybo ld 2023-04-16 2023-04-16 Outpatient JELENA STOKES [id number] Jelena 10:30:00 10:30:00 SPENSER Seybol d 2023-04-13 2023-04-13 Outpatient GAURAV PURVIS [id number] Jelena 10:30:00 10:30:00 Seybol d 2023-03-23 2023-03-23 Outpatient GAURAV PURVIS [id number] Jelena 10:30:00 10:30:00 Seybol d 2023-03-11 2023-03-11 Outpatient JELENA BRIONES [id number] Jelena 11:15:00 11:15:00 AHMED Seybol d 2023-02-20 2023-02-20 Outpatient JELENA GARY [id number] Jelena 00:00:00 00:00:00 ROBYN Seybol d 2023-02-19 2023-02-19 Outpatient JELENA MALHOTRA [id number] J[place]ena 00:00:00 00:00:00 BYRON Seybol d 2023-02-18 2023-02-18 Outpatient JELENA GARY [id number] Jelena 11:00:00 11:00:00 ROBYN Seybol d 2023-02-16 2023-02-16 Outpatient COOKIE JELENA BOWLES [id number] Jelena 00:00:00 00:00:00 ROBYN Seybol d 2023-02-06 2023-02-06 Outpatient ROQUEJELENA [id number] Jelena 00:00:00 00:00:00 LASUNDRA Seybo ld 2023-02-06 2023-02-06 Outpatient ALVAROJELENA [id number] Jelena 00:00:00 00:00:00 SHANEIKA Seybo ld 2023-02-05 2023-02-05 Outpatient LAB90 JELENA BOWLES [id number] Jelena 09:10:00 09:10:00 Seybol d 2023-02-05 2023-02-05 Outpatient JELENA MALHOTRA [id number] Jelena 00:00:00 00:00:00 BYRON Seybol d 2023-02-05 2023-02-05 Outpatient JELENA TREVIÑO [id number] Jelena 00:00:00 00:00:00 OLENA Seybol d 2023-02-02 2023-02-02 Outpatient JELENA STOKES [id number] Jelena 09:30:00 09:30:00 SPENSER Seybol d 2023-02-02 2023-02-02 Outpatient JELENA GARY [id number] Jelena 00:00:00 00:00:00 ROBYN Seybol d 2023-02-02 2023-02-02 Outpatient JELENA GARY [id number] Jelena 00:00:00 00:00:00 ROBYN Seybol d 2023-01-28 2023-01-28 Outpatient JELENA BRIONES [id number] Jelena 11:00:00 11:00:00 AHMED Seybol d 2023-01-18 2023-01-18 Outpatient JELENA GARY [id number] Jelena 00:00:00 00:00:00 ROBYN Seybol d 2023-01-17 2023-01-17 Outpatient JELENA MALHOTRA [id number] Jelena 00:00:00 00:00:00 BYRON Seybol d 2023-01-14 2023-01-14 Outpatient HUNDL, JELENA BOWLES [id number] Jelena 00:00:00 00:00:00 ROBYN Seybol d 2023-01-07 2023-01-07 Outpatient HUNDL, JELENA BOWLES [id number] Jelena 00:00:00 00:00:00 ROBYN Seybol d 2023-01-06 2023-01-06 Outpatient KAWAR, GAURAV JELENA BOWLES [id number] Jelena 00:00:00 00:00:00 Seybol d 2023-01-06 2023-01-06 Outpatient HUNDL, JELENA BOWLES [id number] Jelena 00:00:00 00:00:00 ROBYN Seybol d 2023-01-06 2023-01-06 Outpatient MERRILL, JELENA BOWLES [id number] Jelena 00:00:00 00:00:00 JAROD Seybol d 2023-01-01 2023-01-01 Outpatient HUNDL, JELENA BOWLES [id number] Jelena 10:30:00 10:30:00 ROBYN Seybol d 2023-01-01 2023-01-01 Outpatient HUNDL, JELENA BOWLES [id number] Jelena 00:00:00 00:00:00 ROBYN Seybol d 2022-12-31 2022-12-31 Outpatient PLABPA JELENA BOWLES [id number] Jelena 09:00:00 09:00:00 Seybol d 2022-12-30 2022-12-30 Outpatient HUNDL, JELENA BOWLES [id number] Jelena 10:30:00 10:30:00 ROBYN Seybol d 2022-12-29 2022-12-29 Outpatient LAB90 JELENA BOWLES [id number] Jelena 11:20:00 11:20:00 Seybol d 2022-12-29 2022-12-29 Outpatient HUNDL, JELENA BOWLES [id number] Jelena 10:30:00 10:30:00 ROBYN Seybol d 2022-12-29 2022-12-29 Outpatient HUNDL, JELENA BOWLES [id number] Jelena 00:00:00 00:00:00 ROBYN Seybol d 2022-12-29 2022-12-29 Outpatient ANSELMO JELENA BOWLES [id number] Jelena 00:00:00 00:00:00 AHMED Seybol d 2022-12-26 2022-12-26 Outpatient PLABPA JELENA BOWLES [id number] Jelena 09:00:00 09:00:00 Seybol d 2022-12-26 2022-12-26 Outpatient JELENA BYNUM [id number] Jelena 00:00:00 00:00:00 JENNIFER Seybol d 2022-12-26 2022-12-26 Outpatient PREZASJELENA [id number] Jelena 00:00:00 00:00:00 BYRON Seybol d 2022-12-25 2022-12-25 Outpatient GAURAV PURVIS [id number] Jelena 00:00:00 00:00:00 Seybol d 2022-12-24 2022-12-24 Outpatient PLABPA JELENA BOWLES [id number] Jelena 11:30:00 11:30:00 Seybol d 2022-12-22 2022-12-22 Outpatient HYUNSIVADANDRE BOWLES [id number] Jelena 09:00:00 09:00:00 Seybol d 2022-12-22 2022-12-22 Outpatient JELENA GARY [id number] Jelena 00:00:00 00:00:00 ROBYN Seybol d 2022-12-20 2022-12-20 Outpatient JELENA CRUZ [id number] Jelena 00:00:00 00:00:00 JALYN Seybol d 2022-12-19 2022-12-19 Outpatient PREZASJELENA [id number] Jelena 00:00:00 00:00:00 BYRON Seybol d 2022-12-18 2022-12-18 Outpatient JELENA GARY [id number] Jelena 00:00:00 00:00:00 ROBYN Seybol d 2022-12-18 2022-12-18 Outpatient JELENA GARY [id number] Jelena 00:00:00 00:00:00 ROBYN Seybol d 2022-12-15 2022-12-15 Outpatient MYREYNOLDSEYONL JELENA BOWLES [id number] Jelena 00:00:00 00:00:00 MD ANKITA Seybol d 2022-12-15 2022-12-15 Outpatient JELENA MARTINEZ [id number] Jelena 00:00:00 00:00:00 MANOLO Seybol d 2022-12-15 2022-12-15 Outpatient JELENA GIVENS [id number] Jelena 00:00:00 00:00:00 GAUTAM Seybol d 2022-12-12 2022-12-12 Outpatient JELENA GIVENS [id number] Jelena 10:30:00 10:30:00 GAUTAM Seybol d 2022-12-12 2022-12-12 Outpatient JELENA BOWLES [id number] Jelena 00:00:00 00:00:00 Seybol d 2022-12-12 2022-12-12 Outpatient JELENA MALHOTRA [id number] Jelena 00:00:00 00:00:00 BYRON Seybol d 2022-12-11 2022-12-11 Outpatient JELENA MALHOTRA [id number] Jelena 00:00:00 00:00:00 BYRON Seybol d 2022-12-08 2022-12-08 Outpatient JELENA MOMIN [id number] Jelena 10:40:00 10:40:00 JAROD Seybol d 2022-12-08 2022-12-08 Outpatient JELENA BOWLES [id number] Jelena 10:25:00 10:25:00 Seybol d 2022-12-08 2022-12-08 Outpatient GAURAV PURVIS [id number] Jelena 08:30:00 08:30:00 Seybol d 2022-12-08 2022-12-08 Outpatient JELENA GARY [id number] Jelena 00:00:00 00:00:00 ROBYN Seybol d 2022-12-04 2022-12-04 Outpatient JELENA MALHOTRA [id number] Jelena 00:00:00 00:00:00 BYRON Seybol d 2022-12-04 2022-12-04 Outpatient MERRILL, JELENA BOWLES [id number] Jelena 00:00:00 00:00:00 JAROD Seybol d 2022-12-04 2022-12-04 Outpatient JELENA BOWLES [id number] Jelena 00:00:00 00:00:00 Seybol d 2022-12-04 2022-12-04 Outpatient HUNDL, JELENA BOWLES [id number] Jelena 00:00:00 00:00:00 ROBYN Seybol d 2022-12-01 2022-12-01 Outpatient HUNDL, JELENA BOWLES [id number] Jelena 00:00:00 00:00:00 ROBYN Seybol d 2022-11-27 2022-11-[address], TECH JELENA BOWLES [id number] Jelena 10:30:00 10:30:00 Seybol d 2022-11-27 2022-11-27 Outpatient MYJELENAONJessica BOWLES [id number] Jelena 00:00:00 00:00:00 MD ANKITA Seybol d 2022-11-27 2022-11-27 Outpatient MYRADHA BOWLES [id number] Jelena 00:00:00 00:00:00 MD ANKITA Seybol d 2022-11-21 2022-11-21 Outpatient HUNDL, JELENA BOWLES [id number] Jelena 00:00:00 00:00:00 ROBYN Seybol d 2022-11-20 2022-11-20 Outpatient SFA SFA [id number] Jarod 10:08:21 10:08:21 [id number] F Lee 2022-11-19 2022-11-19 Outpatient HUNDL, JELENA BOWLES [id number] Jelena 00:00:00 00:00:00 ROBYN Seybol d 2022-11-14 2022-11-14 Outpatient HUNDL, JELENA BOWLES [id number] Jelena 00:00:00 00:00:00 ROBYN Seybol d 2022-11-14 2022-11-14 Outpatient JELENA BOWLES [id number] Jelena 00:00:00 00:00:00 Seybol d 2022-11-11 2022-11-11 Outpatient FARIDAL, JELENA JELENA [id number] Jelena 00:00:00 00:00:00 ROBYN Seybol d 2022-11-07 2022-11-07 Outpatient VICK, JELENA BOWLES [id number] Jelena 00:00:00 00:00:00 DARLIN Seybo ld 2022-11-07 2022-11-07 Outpatient VICK, JELENA BOWLES [id number] Jelena 00:00:00 00:00:00 DARLIN Seybo ld 2022-11-07 2022-11-07 Outpatient VICK, JELENA BOWLES [id number] Jelena 00:00:00 00:00:00 DARLIN Seybo ld 2022-11-07 2022-11-07 Outpatient VICK, JELENA BOWLES [id number] Jelena 00:00:00 00:00:00 DARLIN Seybo ld 2022-11-07 2022-11-07 Outpatient HUNDL, JELENA BOWLES [id number] Jelena 00:00:00 00:00:00 ROBYN Seybol d 2022-11-07 2022-11-07 Outpatient HUNDL, JELENA BOWLES [id number] Jelena 00:00:00 00:00:00 ROBYN Seybol d 2022-11-07 2022-11-07 Outpatient HUNDL, JELENA BOWLES [id number] Jelena 00:00:00 00:00:00 ROBYN Seybol d 2022-11-07 2022-11-07 Outpatient HUNDL, JELENA BOWLES [id number] Jelena 00:00:00 00:00:00 ROBYN Seybol d 2022-11-07 2022-11-07 Outpatient HUNDL, JELENA BOWLES [id number] Jelena 00:00:00 00:00:00 ROBYN Seybol d 2022-11-07 2022-11-07 Outpatient HUNDL, JELENA BOWLES [id number] Jelena 00:00:00 00:00:00 ROBYN Seybol d 2022-10-30 2022-10-30 Outpatient [facility] [id number] Jarod 08:26:44 08:26:44 0302 F Lee 2022-10-30 2022-10-30 Outpatient COOKIE JELENA JELENA [id number] Jelena 00:00:00 00:00:00 ROBYN Seybol d 2022-10-29 2022-10-29 Outpatient COOKIE JELENA BOWLES [id number] Jelena 00:00:00 00:00:00 ROBYN Seybol d 2022-10-29 2022-10-29 Outpatient COOKIE JELENA BOWLES [id number] Jelena 00:00:00 00:00:00 ROBYN Seybol d 2022-10-29 2022-10-29 Outpatient COOKIE JELENA BOWLES [id number] Jelena 00:00:00 00:00:00 ROBYN Seybol d 2022-10-29 2022-10-29 Outpatient NAVA JELENA BOWLES [id number] Jelena 00:00:00 00:00:00 DARLIN Seybo ld 2022-10-28 2022-10-28 Outpatient LAB47 JELENA BOWLES [id number] Jelena 09:45:00 09:45:00 Seybol d 2022-10-28 2022-10-28 Outpatient NAVA JELENA BOWLES [id number] Jelena 09:00:00 09:00:00 DARLIN Seybo ld 2022-10-23 2022-10-23 Outpatient COOKIE JELENA BOWLES [id number] Jelena 00:00:00 00:00:00 ROBYN Seybol d 2022-10-22 2022-10-22 Outpatient COOKIE JELENA BOWLES [id number] Jelena 08:00:00 08:00:00 ROBYN Seybol d 2022-10-13 2022-10-13 Outpatient [facility] [id number] Jarod 11:24:16 11:24:16 [id number] F Lee 2022-10-10 2022-10-10 Outpatient LAB90 JELENA BOWLES [id number] Jelena 09:25:00 09:25:00 Seybol d 2022-10-10 2022-10-10 Outpatient COOKIE JELENA BOWLES [id number] Jelena 08:30:00 08:30:00 ROBYN Seybol d 2022-10-10 2022-10-10 Outpatient HUNDL, JELENA JELENA [id number] Jelena 00:00:00 00:00:00 ROBYN Seybol d 2022-10-09 2022-10-09 Outpatient HUNDL, JELENA JELENA [id number] Jelena 08:30:00 08:30:00 ROBYN Seybol d 2022-10-09 2022-10-09 Outpatient HUNDL, JELENA BOWLES [id number] Jelena 00:00:00 00:00:00 ROBYN Seybol d 2022-09-30 2022-09-30 Outpatient HUNDL, JELENA BOWLES [id number] Jelena 00:00:00 00:00:00 ROBYN Seybol d 2022-09-26 2022-09-26 Outpatient HUNDL, JELENA JELENA [id number] Jelena 00:00:00 00:00:00 ROBYN Seybol d 2022-09-24 2022-09-24 Outpatient LAB90 JELENA BOWLES [id number] Jelena 17:05:00 17:05:00 Seybol d 2022-09-24 2022-09-24 Outpatient HUNDL, JELENA BOWLES [id number] Jelena 11:00:00 11:00:00 ROBYN Seybol d 2022-09-22 2022-09-22 Outpatient SFA [facility] [id number] Jarod 09:21:24 09:21:24 [id number] F Lee 2022-09-22 2022-09-22 Outpatient HUNDL, JELENA BOWLES [id number] Jelena 00:00:00 00:00:00 ROBYN Seybol d 2022-09-17 2022-09-17 Outpatient HUNDL, JELENA BOWLES [id number] Jelena 00:00:00 00:00:00 ROBYN Seybol d 2022-09-12 2022-09-12 Outpatient HUNDL, JELENA BOWLES [id number] Jelena 00:00:00 00:00:00 ROBYN Seybol d 2022-09-11 2022-09-11 Outpatient HUNDL, JELENA BOWLES [id number] Jelena 00:00:00 00:00:00 ROBYN Seybol d 2022-09-102022-09-10 Outpatient SFA SFA [id number] Jarod 11:36:44 11:36:44 0111 F Lee 2022-09-10 2022-09-10 Outpatient [id number] 00:00:00 00:00:00 Visit 87da-47c3 7da-47c3-b -hb33-0i0 q06-3t8q2o [id number] 2022-09-09 2022-09-09 Outpatient LAB90 JELENA BOWLES [id number] Jelena 09:30:00 09:30:00 Seybol tierra 2022-09-09 2022-09-09 Outpatient FARIDAJessica JELENA BOWLES [id number] Jelena 08:30:00 08:30:00 ROBYN Eatonol tierra 2022-09-09 2022-09-09 Outpatient COOKIE JELENA BOWLES [id number] Jelena 00:00:00 00:00:00 ROBYN Eatonol tierra 2022-09-04 2022-09-04 Outpatient SFA SFA [id number] Jarod 08:29:33 08:29:33 0105 F Lee 2022-09-04 2022-09-04 Outpatient [id number] 00:00:00 00:00:00 Visit 0ky6-6yz0 bd9-4ec7-b -bbc8-d95 bc8-d957ab [id number] 2022-08-28 2022-08-28 Outpatient SFA SFA [id number] Jarod 11:35:11 11:35:11 [id number] F Lee 2022-08-28 2022-08-28 Outpatient [id number] 00:00:00 00:00:00 Visit 010b-47c2 10b-47c2-b -w3n4-q06 [id number] [id number] 2022-05-24 2022-05-24 [facility] [id number] 15:15:00 18:38:00 [id number] -[id number]-ca8 [id number] 5eb 2022-03-15 2022-03-15 Outpatient TREE PEDERSEN [address] [place] 10:56:00 10:56:00 RAUDELSlim 0716 [facility] 2020-11-29 2020-11-29 Outpatient Gracia GRAFF [facility] [id number] Univers 15:30:00 15:30:00 ANNEMARIE klein f [facility] 2020-10-23 2020-10-23 Telephone Alexandre Delgado 1.2.840.114 [id number] Univers 00:00:00 00:00:00 [facility] 350.1.13.10 [place] [id number] [facility] [address] 2020-10-23 2020-10-23 Telephone Alexandre Delgado 1.2.840.114 [id number] 00:00:00 00:00:00 [facility] 350.1.13.10 [facility] 4.2.7.2.686 UNIT [id number] 362 2020-10-12 2020-10-12 Outpatient R TASH [facility] [id number] Univers 09:00:00 09:00:00 SHEY arshad [facility] 2020-09-27 2020-09-27 Orders Doctor CONNER 1.2.840.114 [id number] Univers 00:00:00 00:00:00 Only Unassigned, LESLEY 350.1.13.10 ity of [place] [facility] 4.2.7.2.686 Marvel as [id number] [facility] [address] 2020-09-27 2020-09-27 Orders Doctor CONNER 1.2.840.114 [id number] 00:00:00 00:00:00 Only Unassigned, [place] 350.1.13.10 [place] [facility] 4.2.7.2.686 [id number] 2020-09-20 2020-09-20 Telephone Tash [facility] 1.2.840.114 [id number] Univers 00:00:00 00:00:00 Shey Cabral 350.1.13.10 it y of Surgical 4.2.7.2.686 Marvel as Specialti [id number] Me dical es 198 [facility] 2020-09-20 2020-09-20 [facility] 1.2.840.114 [id number] 00:00:00 00:00:00 Shey Cabral 350.1.13.10 Surgical 4.2.7.2.686 Specialti [id number] es 198 [place] 2020-09-07 2020-09-07 [facility] 1.2.619.488 [id number] Univers 09:03:53 09:52:26 Visit Shey Cabral 350.1.13.10 it y of Surgical 4.2.7.2.686 [place] as Specialti [id number] Or dical es 198 [facility] 2020-09-07 2020-09-07 Office [facility] 1.2.221.833 [id number] 09:03:53 09:52:26 Visit Shey Cabral 350.1.13.10 Surgical 4.2.7.2.686 Specialti [id number] es 198 [place] 2020-09-07 2020-09-07 [id number] Univers 09:00:00 09:00:00 SHEY [facility] 2020-08-30 2020-08-30 [facility] [id number] Univers 08:30:00 08:30:[facility] 2020-08-20 [facility] 1.2.840.114 [id number] Univers 10:11:58 23:59:00 Encounter Health 350.1.13.10 [place] [id number] [place] [address] [address] ([facility]) 2020-08-20 2020-08-20 [facility] [id number] Univers 10:11:58 23:59:00 ity [facility] 2020-08-16 2020-08-16 [facility] 1.2.840.114 [id number] Univers 00:00:00 00:00:00 [facility] 350.1.13.10 it y of [place] 4.2.7.2.686 Marvel as [place] [phone] [address] Office Building One 2020-08-02 2020-08-02 Office Care, Ang Primary [place] 1.2.840 .114 [id number] Univers 10:40:31 12:20:58 Visit Alexandre Delgado [facility] 350.1.13.10 [place] [phone] [address] 2020-08-02 2020-08-02 Outpatient R [facility] [id number] Univers 10:30:00 10:30:00 ity [facility] 2020-08-02 2020-08-02 Orders Doctor CONNER 1.2.840.114 [id number] Univers 00:00:00 00:00:00 Only Unassigned, [place] 350.1.13.10 [facility] 4.2.7.2.686 Marvel as [phone] [address] 2020-05-31 2020-05-31 Outpatient Gracia LAMAR [facility] [id number] Univers 08:50:00 08:50:00 ILIANA arshad [facility] 2020-05-24 2020-05-24 Outpatient Gracia [facility] [id number] Univers 00:00:00 00:00:00 ity [facility] 2020-05-22 2020-05-22 [facility] [id number] Univers 09:50:00 09:50:00 ILIANA itemmy [facility] 2020-05-17 2020-05-21 Office Care, Ang Primary [place] 1.2.840 .114 [id number] Univers 11:05:31 09:49:52 Visit Alexandre Delgado [facility] 350.1.13.10 [place] [id number] [address] 2020-05-21 2020-05-21 Outpatient Gracia [facility] [id number] Univers 00:00:00 00:00:00 ity of [facility] 2020-05-17 2020-05-17 Outpatient R ALEXANDRE DELGADO [facility] [id number] Univers 10:30:00 10:30:00 ity of [facility] 2020-05-17 2020-05-17 Orders Doctor CONNER 1.2.840.114 [id number] Univers 00:00:00 00:00:00 Only Unassigned, [place] 350.1.13.10 ity of [place] [facility] 4.2.7.2.686 Marvel as [phone] [facility] [address] 2020-05-08 2020-05-08 [facility] [id number] Univers 08:30:00 08:30:00 ANNEMARIE magaña [facility] 2020-05-08 2020-05-08 [facility] 1.2.840.114 [id number] Univers 07:05:41 07:35:41 ne Visit Annemarie AVILES 350.1.13.10 ity of CARE 4.2.7.2.686 [facility] AT [phone] Or lawrencenargis BYRD 2 [facility] 2020-05-01 2020-05-01 [facility] [id number] Univers 09:30:00 09:30:00 ANNEMARIE magaña [facility] 2020-04-24 2020-04-24 Outpatient [facility] [id number] Univers 09:30:00 09:30:00 ANNEMARIE magaña [facility] 2020-03-08 2020-03-20 Office Care, Ang Primary [place] 1.2.840 .114 [id number] Univers 10:02:59 09:15:53 Visit Alexandre Delgado [facility] 350.1.13.10 ity of HEALTH 4.2.7.2.686 [facility] UNIT [phone] [facility] [address] 2020-03-16 2020-03-16 [facility] 1.2.840.114 [id number] Univers 07:51:00 23:59:00 Encounter Hubert 350.1.13.10 it[place] of [place].2.[place] [phone] [facility] [address] 2020-03-16 2020-03-16 Outpatient R ALEXANDRE DELGADO [facility] [id number] Univers 00:00:00 00:00:00 ity of [facility] 2020-03-13 2020-03-13 Telephone Alexandre Delgado ROSY 1.2.840.114 [id number] Univers 00:00:00 00:00:00 [facility] 350.1.13.10 [place] [phone] [facility] CARE - 362 [facility] 2020-03-08 2020-03-08 Outpatient R ALEXANDRE DELGADO [facility] 003 [id number] Univers 10:00:00 10:00:00 ity of [facility] 2020-03-08 2020-03-08 Orders Doctor PRIETO 1.2.840.114 [id number] Univers 00:00:00 00:00:00 Only Unassigned, [place] 350.1.13.10 ity of [place] [facility] 4.2.7.2.686 Marvel as [phone] [facility] [address] 2020-02-29 2020-02-29 Telephone Alexandre Delgado ROSY 1.2.840.114 [id number] Univers 00:00:00 00:00:00 [facility] 350.1.13.10 it [place] [phone] [facility] [address] 2020-02-14 2020-02-14 Telephone Fer [facility] 1.2.677.084 [id number] Univers 00:00:00 00:00:00 Dannie Gaspar 350.1.13.10 it[place] of [place].2.[place] [phone] Or dical nal 059 [facility] 2020-02-10 2020-02-10 Outpatient R [facility] [id number] Univers 09:00:00 09:00:00 ity of [facility] 2020-02-10 2020-02-10 Orders Doctor PRIETO 1.2.840.114 [id number] Univers 00:00:00 00:00:00 Only Unassigned, [place] 350.1.13.10 ity of [place] [facility] 4.2.7.2.686 Marvel as [phone] [facility] [address] 2020-01-24 2020-01-24 Outpatient R FER [facility] [id number] Univers 10:40:00 10:40:00 DANNIE ity o f [facility] 2020-01-24 2020-01-24 [facility] 1.2.840.114 [id number] Univers 07:57:10 08:17:10 ne Visit Dannie Gaspar 350.1.13.10 [place] [phone] Or dical nal 059 [facility] 2020-01-18 2020-01-18 Outpatient R [facility] [id number] Univers 13:00:00 13:00:00 ity of [facility] 2019-11-10 2019-11-10 Telephone Alexandre Delgado 1.2.840.114 [id number] Univers 00:00:00 00:00:00 [facility] 350.1.13.10 it [place] [phone] [facility] [address] 2019-11-03 2019-11-03 Outpatient R ALEXANDRE DELGADO [facility] [id number] Univers 08:15:00 08:15:00 ity of [facility] 2019-10-25 2019-10-25 Office [facility] 1.2.840.114 [id number] Univers 08:48:06 09:27:18 Visit Annemarie AVILES 350.1.13.10 ity of [facility] 4.2.7.2.[place] AT [phone] Or dical VICTORY 072 [facility] 2019-10-25 2019-10-25 Outpatient R DAJUAN [facility] [id number] Univers 09:00:00 09:00:00 ANNEMARIE ity o f [facility] 2019-10-24 2019-10-24 [facility] 1.2.840.114 [id number] Univers 10:57:17 15:44:20 Visit Dannie Gaspar 350.1.13.10 ity [facility] [place].2.[place].2.[place] [phone] Or dical nal 059 [facility] 2019-10-24 2019-10-24 Outpatient R FER [facility] [id number] Univers 11:00:00 11:00:00 PRETTYNGYOUNG ity o f [facility] 2019-09-29 2019-09-29 Office Care, Ang Primary [place] 1.2.840 .114 [id number] Univers 10:38:08 11:16:42 Visit Pelican Alexandre [facility] 350.1.13.10 it[place] [phone] [facility] [address] 2019-09-29 2019-09-29 Outpatient R ALEXANDRE DELGADO [facility] [id number] Univers 10:00:00 11:16:42 ity of [facility] 2019-09-14 2019-09-14 Telephone Alexandre Delgado ROSY 1.2.840.114 [id number] Univers 00:00:00 00:00:00 [facility] 350.1.13.10 it [place] [phone] [facility] [address] 2019-09-08 2019-09-08 Orders Doctor CONNER 1.2.840.114 [id number] Univers 00:00:00 00:00:00 Only Unassigned, [place] 350.1.13.10 ity of [place] [facility] 4.2.7.2.686 Marvel as [phone] [facility] [address] 2019-05-05 2019-05-05 Telephone Alexandre Delgado ROSY 1.2.840.114 [id number] Univers 00:00:00 00:00:00 [facility] 350.1.13.10 it [place] of [place] [phone] [facility] [address] 2019-04-28 2019-04-28 Office Care, Ang Primary [place] 1.2.840 .114 [id number] Univers 09:26:40 11:38:19 Visit Alexandre Delgado [facility] 350.1.13.10 it[place] [phone] [facility] [address] 2019-04-28 2019-04-28 Orders Doctor CONNER 1.2.840.114 [id number] Univers 00:00:00 00:00:00 Only Unassigned, [place] 350.1.13.10 ity of [place] [facility] 4.2.7.2.686 Marvel as [phone] [facility] [address] Results Test Description Test Time Test Comments Results Result Comments Source TSH, THIRD GENERATION 2022-09-11 04:08:38 Test Item Value Reference Range Interpretation Comme nts TSH, THIRD GENERATION (test 2.060 UIU/ML 0.400-4.100 UNLESS OTHERWISE INDICATED, code = 2821) ALL TESTING PER FORMED ATCLINICAL PATH OLOGY [place], [facility]. [address] [place] [address] 7783 MONEY EXAMINER: Tracey COBBPOOJA SHAZIABecky Gracia [id number] [place]. [id number] COMPREHENSIVE METABOLIC [id number] 03:23:31 Test Item Value Reference Range Interpretation Comments GLUCOSE (test code = 80 MG/DL 70-99 2216) BUN (test code = 7 MG/DL 6-20 2207) CREATININE (test 0.55 MG/DL 0.60-1.30 L code = 2214) eGFR (2020 CKD-EPI) 127 >60 (test code = 23288) ML/MIN/1.73 CALC BUN/CREAT (test 13 RATIO 6-28 code = 2235) SODIUM (test code = 138 MEQ/L 280-213 4842) POTASSIUM (test code 3.9 MEQ/L 3.5-5.4 = [...] AST (test code = 20 U/L 9-40 2218) ALT (test code = 8 U/L 5-40 2219) CBC W/AUTO DIFF WITH [id number] 02:00:05 Test Item Value Reference Range Interpretation [...] RBCS 0.00 K/UL 0.00-0.11 (test code = 66644) CT/NG, NAAT, [id number] 20:52:50 Test Item Value Reference Range Interpretation Comments GONORRHEA, NAAT NEGATIVE NEGATIVE Note: Testi ng is (test code = 49471) performe d with Emili EDEL 6800/8800 systems using real-time polymerase cali n reaction (PCR) method. CHLAMYDIA, NAAT NEGATIVE NEGATIVE Note: Testi ng is (test code = 12509) performe d with Emili EDEL 6800/8800 systems using real-time polymerase cali n reaction (PCR) method. HEPATITIS PANEL, [id number] 05:02:20 Test Item Value Reference Range Interpretation Comments HEPATITIS A IgM (test NON-REACTIVE NON-REACTIVE code = 56569) HEPATITIS B CORE IgM NON-REACTIVE NON-REACTIVE (test code = 4644) HEPATITIS B SURF AG NON-REACTIVE NON-REACTIVE (test code = 2739) HEPATITIS C ANTIBODY NON-REACTIVE NON-REACTIVE (test code = 4675) INTERPRETATION (NOTE) Hepatitis A HEPATITIS A: (test code sero logy shows no = 2552) evidence of acu te hepatitis A. INTERPRETATION (NOTE) Hepatitis B HEPATITIS B: (test code sero logy shows no = 56492) evidence of acu te hepatitis B and no indication of exposure to hepatitis B vir us in the previous alejandra eight months. INTERPRETATION (NOTE) Hepatitis C HEPATITIS C: (test code sero logy shows no = 53988) evidence of exposure to hepatitisC viru s at this time. I t can take up to 12 months after exposure tothe hepatitis C vir us for antibodies to become detectab le in the blood in certain patient s. HIV 1/2 4TH GEN, RFLX [id number] 05:02:20 Test Item Value Reference Range Interpretation Comments HIV 1/2 4TH GEN, NON-REACTIVE NON-REACTIVE UNLESS OTH ERWISE RFLX CONF (test INDICATED, A LL TESTING code = 3514) PERFORMED [facility] NICWV PATHOLOGY [facility] [address] [facility], [place] [address] [place] [address] DIRECTOR: Tracey COBBIA NUMBER [id number] CAP ACCREDITATION N O. [id number] RPR REFLEX TO T. PALLIDUM - [id number] 04:28:08 Test Item Value Reference Range Interpretation Comments RPR (test code = 81073) NON-REACTIVE NON-REACTIVE RPR TITER (test code = 3500) NOT INDIC. TITER NOT INDIC. CT/NG, TMA, [id number] 00:00:00 Test Item Value Reference Range Interpretation Comments GONORRHEA, NAAT (test code = 93824) NEGATIVE CHLAMYDIA, NAAT (test code = 88534) NEGATIVE CT/NG, TMA, [id number] 00:00:00 Test Item Value Reference Range Interpretation Comments GONORRHEA, NAAT (test code = 53809) NEGATIVE CHLAMYDIA, NAAT (test code = 91857) NEGATIVE RPR REFLEX TO T. PALLIDUM - [id number] 00:00:00 Test Item Value Reference Range Interpretation Comments RPR (test code = 03446) NON-REACTIVE RPR TITER (test code = 3500) NOT INDIC. TITER RPR REFLEX TO T. PALLIDUM - [id number] 00:00:00 Test Item Value Reference Range Interpretation Comments RPR (test code = 67033) NON-REACTIVE RPR TITER (test code = 3500) NOT INDIC. TITER ACUTE HEPATITIS [id number] 00:00:00 Test Item Value Reference Range Interpretation Comments HEPATITIS A IgM (test code = NON-REACTIVE 48068) HEPATITIS B CORE IgM (test code NON-REACTIVE = 4644) HEPATITIS B SURF AG (test code = NON-REACTIVE 2739) HEPATITIS C ANTIBODY (test code NON-REACTIVE = 4675) INTERPRETATION HEPATITIS A: (NOTE) (test code = 2552) INTERPRETATION HEPATITIS B: (NOTE) (test code = 56774) INTERPRETATION HEPATITIS C: (NOTE) (test code = 76870) ACUTE HEPATITIS [id number] 00:00:00 Test Item Value Reference Range Interpretation Comments HEPATITIS A IgM (test code = NON-REACTIVE 21989) HEPATITIS B CORE IgM (test code NON-REACTIVE = 4644) HEPATITIS B SURF AG (test code = NON-REACTIVE 1189) HEPATITIS C ANTIBODY (test code NON-REACTIVE = 4697) INTERPRETATION HEPATITIS A: (NOTE) (test code = 2552) INTERPRETATION HEPATITIS B: (NOTE) (test code = 07887) INTERPRETATION HEPATITIS C: (NOTE) (test code = 50158) HIV 1/2 4TH GEN, RFLX [id number] 00:00:00 Test Item Value Reference Range Interpretation Comments HIV 1/2 4TH GEN, RFLX CONF (test NON-REACTIVE code = 3514) HIV 1/2 4TH GEN, RFLX [id number] 00:00:00 Test Item Value Reference Range Interpretation Comments HIV 1/2 4TH GEN, RFLX CONF (test NON-REACTIVE code = 3514) VITAMIN D, 25 [id number] 03:25:23 Test Item Value Reference Range Interpretation [...] ATED, ALL TESTING PERFORM ED ATCLINICAL PATH [facility] [place]. [address] [place] [address] LABORATORY DIRE CTOR: Rebeca COBB. CLIA NUMBER [id number] CAP ACCREDITATION N O. [id number] HIV 1/2 4TH GEN, RFLX [id number] 03:00:39 Test Item Value Reference Range Interpretation Comments HIV 1/2 4TH GEN, RFLX CONF (test NON-REACTIVE NON-REACTIVE code = 3514) HIV AB/AG COMBO RFLX [id number] 00:00:00 Test Item Value Reference Range Interpretation Comments HIV 1/2 4TH GEN, RFLX CONF (test NON-REACTIVE code = 3514) HIV AB/AG COMBO RFLX [id number] 00:00:00 Test Item Value Reference Range Interpretation Comments HIV 1/2 4TH GEN, RFLX CONF (test NON-REACTIVE code = 3514) VITAMIN D, 25 [id number] 00:00:00 Test Item Value Reference Range Interpretation Comments VITAMIN D, 25 OH (test code = 4958) 27 NG/ML VITAMIN D, 25 [id number] 00:00:00 Test Item Value Reference Range Interpretation Comments VITAMIN D, 25 OH (test code = 4958) 27 NG/ML HIV AB/AG COMBO RFLX [id number] 00:00:00 Test Item Value Reference Range Interpretation Comments HIV 1/2 4TH GEN, RFLX CONF (test NON-REACTIVE code = 3514) HIV AB/AG COMBO RFLX [id number] 00:00:00 Test Item Value Reference Range Interpretation Comments HIV 1/2 4TH GEN, RFLX CONF (test NON-REACTIVE code = 3514) VITAMIN D, 25 [id number] 00:00:00 Test Item Value Reference Range Interpretation Comments VITAMIN D, 25 OH (test code = 4958) 27 NG/ML VITAMIN D, 25 [id number] 00:00:00 Test Item Value Reference Range Interpretation Comments VITAMIN D, 25 OH (test code = 4958) 27 NG/ML HIV AB/AG COMBO RFLX [id number] 00:00:00 Test Item Value Reference Range Interpretation Comments HIV 1/2 4TH GEN, RFLX CONF (test NON-REACTIVE code = 3514) HIV AB/AG COMBO RFLX [id number] 00:00:00 Test Item Value Reference Range Interpretation Comments HIV 1/2 4TH GEN, RFLX CONF (test NON-REACTIVE code = 3514) VITAMIN D, 25 [id number] 00:00:00 Test Item Value Reference Range Interpretation Comments VITAMIN D, 25 OH (test code = 4958) 27 NG/ML VITAMIN D, 25 [id number] 00:00:00 Test Item Value Reference Range Interpretation Comments VITAMIN D, 25 OH (test code = 4958) 27 NG/ML TSH, THIRD [id number] 00:19:50 Test Item Value Reference Range Interpretation Comments TSH, THIRD GENERATION (test code 1.090 UIU/ML 0.400-4.100 = 2821) [id number] 00:00:00 Test Item Value Reference Range Interpretation Comments TSH, THIRD GENERATION (test code 1.090 UIU/ML = 2821) [id number] 00:00:00 Test Item Value Reference Range Interpretation Comments TSH, THIRD GENERATION (test code 1.090 UIU/ML = 2821) [id number] 00:00:00 Test Item Value Reference Range Interpretation Comments TSH, THIRD GENERATION (test code 1.090 UIU/ML = 2821) [id number] 00:00:00 Test Item Value Reference Range Interpretation Comments TSH, THIRD GENERATION (test code 1.090 UIU/ML = 2821) [id number] 00:00:00 Test Item Value Reference Range Interpretation Comments TSH, THIRD GENERATION (test code 1.090 UIU/ML = 2821) [id number] 00:00:00 Test Item Value Reference Range Interpretation Comments TSH, THIRD GENERATION (test code 1.090 UIU/ML = 2821) [id number] 00:00:00 Test Item Value Reference Range Interpretation Comments TSH, THIRD GENERATION (test code 1.090 UIU/ML = 2821) [id number] 00:00:00 Test Item Value Reference Range Interpretation Comments TSH, THIRD GENERATION (test code 1.090 UIU/ML = 2821) [id number] 00:00:00 Test Item Value Reference Range Interpretation Comments TSH, THIRD GENERATION (test code 1.090 UIU/ML = 2821) LIPID [id number] 23:59:41 Test Item Value Reference Range Interpretation [...] MOREINFORMATION , SEE CLIENT ANNOUNCE MENT AT [email or web address] RISK RATIO LDL/HDL 1.79 RATIO <3.22 (test code = 2238) COMPREHENSIVE METABOLIC [id number] 23:59:41 Test Item Value Reference Range Interpretation Comments GLUCOSE (test code = 77 MG/DL 70-99 2216) BUN (test code = 8 MG/DL 6-20 2207) CREATININE (test 0.67 MG/DL 0.60-1.30 EFFECTIVE code = 2214) 08/12/2021, [facility] HAS IMPLEMENTED THE NKF-ASN RECOMME NDED KD-EPI EGF R REFIT CALCULATI ON THAT DOES NOT INCLUDE A COEFFICIENT FOR RACE. FOR MORE INFORMATION, SE E ANNOUNCEMENT [email or web address] eGFR (2020 CKD-EPI) 122 >60 (test code = 01186) ML/MIN/1.73 CALC BUN/CREAT (test 12 RATIO 6-28 code = 2235) SODIUM (test code = 141 MEQ/L 440-934 4227) POTASSIUM (test code 4.0 MEQ/L 3.5-5.4 = [...] (test code = 63 U/L 9-40 H 8) ALT (test code = 92 U/L 5-40 H 2218) HEMOGLOBIN [id number] 03:14:31 Test Item Value Reference Range Interpretation Comments HEMOGLOBIN A1c (test code = 82107) 6.0 % 4.2-5.6 H CBC W/AUTO DIFF WITH [id number] 03:06:02 Test Item Value Reference Range Interpretation [...] RBCS 0.00 K/UL 0.00-0.11 (test code = 83547) CBC W/AUTO [id number] 00:00:00 Test Item Value Reference Range Interpretation [...] NUCLEATED RBCS (test code = 0.00 K/UL 10087) CBC W/AUTO [id number] 00:00:00 Test Item Value Reference Range Interpretation [...] NUCLEATED RBCS (test code = 0.00 K/UL 00591) CBC W/AUTO [id number] 00:00:00 Test Item Value Reference Range Interpretation [...] NUCLEATED RBCS (test code = 0.00 K/UL 03595) HEMOGLOBIN [id number] 00:00:00 Test Item Value Reference Range Interpretation Comments HEMOGLOBIN A1c (test code = 31958) 6.0 % HEMOGLOBIN [id number] 00:00:00 Test Item Value Reference Range Interpretation Comments HEMOGLOBIN A1c (test code = 27857) 6.0 % HEMOGLOBIN [id number] 00:00:00 Test Item Value Reference Range Interpretation Comments HEMOGLOBIN A1c (test code = 24116) 6.0 % LIPID [id number] 00:00:00 Test Item Value Reference Range Interpretation Comments CHOLESTEROL (test code = 2210) 124 MG/DL TRIGLYCERIDES (test code = 2232) 69 MG/DL HDL CHOLESTEROL (test code = 2220) 39 MG/DL CALC LDL CHOL (test code = 2237) 70 MG/DL RISK RATIO LDL/HDL (test code = 1.79 RATIO 2238) LIPID [id number] 00:00:00 Test Item Value Reference Range Interpretation Comments CHOLESTEROL (test code = 2210) 124 MG/DL TRIGLYCERIDES (test code = 2232) 69 MG/DL HDL CHOLESTEROL (test code = 2220) 39 MG/DL CALC LDL CHOL (test code = 2237) 70 MG/DL RISK RATIO LDL/HDL (test code = 1.79 RATIO 2238) COMPREHENSIVE METABOLIC [id number] 00:00:00 Test Item Value Reference Range Interpretation Comments GLUCOSE (test code = 2217) 77 MG/DL BUN (test code = 2208) 8 MG/DL CREATININE (test code = 2214) 0.67 MG/DL eGFR (2020 CKD-EPI) (test 122 ML/MIN/1.73 code = 83202) CALC BUN/CREAT (test code = 12 RATIO [...] code = 2219) 92 U/L COMPREHENSIVE METABOLIC [id number] 00:00:00 Test Item Value Reference Range Interpretation Comments GLUCOSE (test code = 2217) 77 MG/DL BUN (test code = 2208) 8 MG/DL CREATININE (test code = 2214) 0.67 MG/DL eGFR (2020 CKD-EPI) (test 122 ML/MIN/1.73 code = 40623) CALC BUN/CREAT (test code = 12 RATIO [...] code = 2219) 92 U/L CBC W/AUTO [id number] 00:00:00 Test Item Value Reference Range Interpretation [...] NUCLEATED RBCS (test code = 0.00 K/UL 66916) CBC W/AUTO [id number] 00:00:00 Test Item Value Reference Range Interpretation [...] NUCLEATED RBCS (test code = 0.00 K/UL 44238) CBC W/AUTO [id number] 00:00:00 Test Item Value Reference Range Interpretation [...] NUCLEATED RBCS (test code = 0.00 K/UL 68586) CBC W/AUTO [id number] 00:00:00 Test Item Value Reference Range Interpretation [...] NUCLEATED RBCS (test code = 0.00 K/UL 20425) HEMOGLOBIN [id number] 00:00:00 Test Item Value Reference Range Interpretation Comments HEMOGLOBIN A1c (test code = 27941) 6.0 % HEMOGLOBIN [id number] 00:00:00 Test Item Value Reference Range Interpretation Comments HEMOGLOBIN A1c (test code = 06766) 6.0 % HEMOGLOBIN [id number] 00:00:00 Test Item Value Reference Range Interpretation Comments HEMOGLOBIN A1c (test code = 89868) 6.0 % LIPID [id number] 00:00:00 Test Item Value Reference Range Interpretation Comments CHOLESTEROL (test code = 2210) 124 MG/DL TRIGLYCERIDES (test code = 2232) 69 MG/DL HDL CHOLESTEROL (test code = 2220) 39 MG/DL CALC LDL CHOL (test code = 2237) 70 MG/DL RISK RATIO LDL/HDL (test code = 1.79 RATIO 2238) LIPID [id number] 00:00:00 Test Item Value Reference Range Interpretation Comments CHOLESTEROL (test code = 2210) 124 MG/DL TRIGLYCERIDES (test code = 2232) 69 MG/DL HDL CHOLESTEROL (test code = 2220) 39 MG/DL CALC LDL CHOL (test code = 2237) 70 MG/DL RISK RATIO LDL/HDL (test code = 1.79 RATIO 2238) COMPREHENSIVE METABOLIC [id number] 00:00:00 Test Item Value Reference Range Interpretation Comments GLUCOSE (test code = 2217) 77 MG/DL BUN (test code = 2208) 8 MG/DL CREATININE (test code = 2214) 0.67 MG/DL eGFR (2020 CKD-EPI) (test 122 ML/MIN/1.73 code = 66979) CALC BUN/CREAT (test code = 12 RATIO [...] code = 2219) 92 U/L COMPREHENSIVE METABOLIC [id number] 00:00:00 Test Item Value Reference Range Interpretation Comments GLUCOSE (test code = 2217) 77 MG/DL BUN (test code = 2208) 8 MG/DL CREATININE (test code = 2214) 0.67 MG/DL eGFR (2020 CKD-EPI) (test 122 ML/MIN/1.73 code = 86231) CALC BUN/CREAT (test code = 12 RATIO [...] code = 2219) 92 U/L CBC W/AUTO [id number] 00:00:00 Test Item Value Reference Range Interpretation [...] NUCLEATED RBCS (test code = 0.00 K/UL 26772) CBC W/AUTO [id number] 00:00:00 Test Item Value Reference Range Interpretation [...] NUCLEATED RBCS (test code = 0.00 K/UL 94463) HEMOGLOBIN [id number] 00:00:00 Test Item Value Reference Range Interpretation Comments HEMOGLOBIN A1c (test code = 26578) 6.0 % HEMOGLOBIN [id number] 00:00:00 Test Item Value Reference Range Interpretation Comments HEMOGLOBIN A1c (test code = 13436) 6.0 % HEMOGLOBIN [id number] 00:00:00 Test Item Value Reference Range Interpretation Comments HEMOGLOBIN A1c (test code = 00136) 6.0 % LIPID [id number] 00:00:00 Test Item Value Reference Range Interpretation Comments CHOLESTEROL (test code = 2210) 124 MG/DL TRIGLYCERIDES (test code = 2232) 69 MG/DL HDL CHOLESTEROL (test code = 2220) 39 MG/DL CALC LDL CHOL (test code = 2237) 70 MG/DL RISK RATIO LDL/HDL (test code = 1.79 RATIO 2238) LIPID [id number] 00:00:00 Test Item Value Reference Range Interpretation Comments CHOLESTEROL (test code = 2210) 124 MG/DL TRIGLYCERIDES (test code = 2232) 69 MG/DL HDL CHOLESTEROL (test code = 2220) 39 MG/DL CALC LDL CHOL (test code = 2237) 70 MG/DL RISK RATIO LDL/HDL (test code = 1.79 RATIO 2238) COMPREHENSIVE METABOLIC [id number] 00:00:00 Test Item Value Reference Range Interpretation Comments GLUCOSE (test code = 2217) 77 MG/DL BUN (test code = 2208) 8 MG/DL CREATININE (test code = 2214) 0.67 MG/DL eGFR (2020 CKD-EPI) (test 122 ML/MIN/1.73 code = 81668) CALC BUN/CREAT (test code = 12 RATIO [...] code = 2219) 92 U/L COMPREHENSIVE METABOLIC [id number] 00:00:00 Test Item Value Reference Range Interpretation Comments GLUCOSE (test code = 2217) 77 MG/DL BUN (test code = 2208) 8 MG/DL CREATININE (test code = 2214) 0.67 MG/DL eGFR (2020 CKD-EPI) (test 122 ML/MIN/1.73 code = 54436) CALC BUN/CREAT (test code = 12 RATIO [...] 2219) 92 U/L MR KNEE LEFT WO [id number] 21:23:01 Stable MRI with lateral patellar subluxation [...] reviewed this study and agree with the abovereport.[facility] VW LEFT 2020-03-16 13:46:56 Large [...] thePA view. No fracture is appreciated.IMPRESSIONLarge effusion.No fracture.[facility], [id number] 00:00:00 Test Item Value Reference Range Interpretation Comments HCG, QUANTITATIVE (test code = <5 MIU/ML 2506) HCG, [id number] 00:00:00 Test Item Value Reference Range Interpretation Comments HCG, QUANTITATIVE (test code = <5 MIU/ML 2506) HCG, [id number] 00:00:00 Test Item Value Reference Range Interpretation Comments HCG, QUANTITATIVE (test code = <5 MIU/ML 2506) HCG, [id number] 00:00:00 Test Item Value Reference Range Interpretation Comments HCG, QUANTITATIVE (test code = <5 MIU/ML 2506) HCG, [id number] 00:00:00 Test Item Value Reference Range Interpretation Comments HCG, QUANTITATIVE (test code = <5 MIU/ML 2506) HCG, [id number] 00:00:00 Test Item Value Reference Range Interpretation Comments HCG, QUANTITATIVE (test code = <5 MIU/ML 2506) HCG, [id number] 00:00:00 Test Item Value Reference Range Interpretation Comments HCG, QUANTITATIVE (test code = <5 MIU/ML 2506) HCG, [id number] 00:00:00 Test Item Value Reference Range Interpretation Comments HCG, QUANTITATIVE (test code = <5 MIU/ML 2506) HCG, [id number] 00:00:00 Test Item Value Reference Range Interpretation Comments HCG, QUANTITATIVE (test code = <5 MIU/ML 2506) HCG, [id number] 00:00:00 Test Item Value Reference Range Interpretation Comments HCG, QUANTITATIVE (test TEST NOT PERFORMED code = 2506) MIU/ML HCG, [id number] 00:00:00 Test Item Value Reference Range Interpretation Comments HCG, QUANTITATIVE (test TEST NOT PERFORMED code = 2506) MIU/ML HCG, [id number] 00:00:00 Test Item Value Reference Range Interpretation Comments HCG, QUANTITATIVE (test TEST NOT PERFORMED code = 2506) MIU/ML HCG, [id number] 00:00:00 Test Item Value Reference Range Interpretation Comments HCG, QUANTITATIVE (test TEST NOT PERFORMED code = 2506) MIU/ML HCG, [id number] 00:00:00 Test Item Value Reference Range Interpretation Comments HCG, QUANTITATIVE (test TEST NOT PERFORMED code = 2506) MIU/ML HCG, [id number] 00:00:00 Test Item Value Reference Range Interpretation Comments HCG, QUANTITATIVE (test TEST NOT PERFORMED code = 2506) MIU/ML HCG, [id number] 00:00:00 Test Item Value Reference Range Interpretation Comments HCG, QUANTITATIVE (test TEST NOT PERFORMED code = 2506) MIU/ML HCG, [id number] 00:00:00 Test Item Value Reference Range Interpretation Comments HCG, QUANTITATIVE (test TEST NOT PERFORMED code = 2506) MIU/ML HCG, [id number] 00:00:00 Test Item Value Reference Range Interpretation Comments HCG, QUANTITATIVE (test TEST NOT PERFORMED code = 2506) MIU/ML CHLAMYDIA, AMPLIFIED, [id number] 00:00:00 Test Item Value Reference Range Interpretation Comments CHLAMYDIA, TMA (test code = 15060) NEGATIVE CHLAMYDIA, AMPLIFIED, [id number] 00:00:00 Test Item Value Reference Range Interpretation Comments CHLAMYDIA, TMA (test code = 00190) NEGATIVE GC, AMPLIFIED, [id number] 00:00:00 Test Item Value Reference Range Interpretation Comments GONORRHEA, TMA (test code = 86202) NEGATIVE GC, AMPLIFIED, [id number] 00:00:00 Test Item Value Reference Range Interpretation Comments GONORRHEA, TMA (test code = 77837) NEGATIVE CHLAMYDIA, AMPLIFIED, [id number] 00:00:00 Test Item Value Reference Range Interpretation Comments CHLAMYDIA, TMA (test code = 63230) NEGATIVE CHLAMYDIA, AMPLIFIED, [id number] 00:00:00 Test Item Value Reference Range Interpretation Comments CHLAMYDIA, TMA (test code = 50570) NEGATIVE GC, AMPLIFIED, [id number] 00:00:00 Test Item Value Reference Range Interpretation Comments GONORRHEA, TMA (test code = 20023) NEGATIVE GC, AMPLIFIED, [id number] 00:00:00 Test Item Value Reference Range Interpretation Comments GONORRHEA, TMA (test code = 24513) NEGATIVE CHLAMYDIA, AMPLIFIED, [id number] 00:00:00 Test Item Value Reference Range Interpretation Comments CHLAMYDIA, TMA (test code = 31113) NEGATIVE CHLAMYDIA, AMPLIFIED, [id number] 00:00:00 Test Item Value Reference Range Interpretation Comments CHLAMYDIA, TMA (test code = 41141) NEGATIVE GC, AMPLIFIED, [id number] 00:00:00 Test Item Value Reference Range Interpretation Comments GONORRHEA, TMA (test code = 46142) NEGATIVE GC, AMPLIFIED, [id number] 00:00:00 Test Item Value Reference Range Interpretation Comments GONORRHEA, TMA (test code = 07651) NEGATIVE HIV AB/AG COMBO RFLX [id number] 00:00:00 Test Item Value Reference Range Interpretation Comments HIV 1/2 4TH GEN, RFLX CONF (test NON-REACTIVE code = 3514) HIV AB/AG COMBO RFLX [id number] 00:00:00 Test Item Value Reference Range Interpretation Comments HIV 1/2 4TH GEN, RFLX CONF (test NON-REACTIVE code = 3514) ACUTE HEPATITIS [id number] 00:00:00 Test Item Value Reference Range Interpretation Comments HEPATITIS A IgM (test code = NON-REACTIVE 61473) HEPATITIS B CORE IgM (test code NON-REACTIVE = 4644) HEPATITIS B SURF AG (test code = NON-REACTIVE 2739) HEPATITIS C ANTIBODY (test code NON-REACTIVE = 4675) INTERPRETATION HEPATITIS A: (NOTE) (test code = 2552) INTERPRETATION HEPATITIS B: (NOTE) (test code = 68083) INTERPRETATION HEPATITIS C: (NOTE) (test code = 98361) ACUTE HEPATITIS [id number] 00:00:00 Test Item Value Reference Range Interpretation Comments HEPATITIS A IgM (test code = NON-REACTIVE 20994) HEPATITIS B CORE IgM (test code NON-REACTIVE = 4644) HEPATITIS B SURF AG (test code = NON-REACTIVE 2739) HEPATITIS C ANTIBODY (test code NON-REACTIVE = 4675) INTERPRETATION HEPATITIS A: (NOTE) (test code = 2552) INTERPRETATION HEPATITIS B: (NOTE) (test code = 82963) INTERPRETATION HEPATITIS C: (NOTE) (test code = 42846) [id number] 00:00:00 Test Item Value Reference Range Interpretation Comments RPR RESULT (test code = NON-REACTIVE 3501) RPR TITER (test code = 3500) NOT INDIC. TITER [id number] 00:00:00 Test Item Value Reference Range Interpretation Comments RPR RESULT (test code = NON-REACTIVE 3501) RPR TITER (test code = 3500) NOT INDIC. TITER [id number] 00:00:00 Test Item Value Reference Range Interpretation Comments RPR RESULT (test code = NON-REACTIVE 3501) RPR TITER (test code = 3500) NOT INDIC. TITER HIV AB/AG COMBO RFLX [id number] 00:00:00 Test Item Value Reference Range Interpretation Comments HIV 1/2 4TH GEN, RFLX CONF (test NON-REACTIVE code = 3514) HIV AB/AG COMBO RFLX [id number] 00:00:00 Test Item Value Reference Range Interpretation Comments HIV 1/2 4TH GEN, RFLX CONF (test NON-REACTIVE code = 3514) HIV AB/AG COMBO RFLX [id number] 00:00:00 Test Item Value Reference Range Interpretation Comments HIV 1/2 4TH GEN, RFLX CONF (test NON-REACTIVE code = 3514) ACUTE HEPATITIS [id number] 00:00:00 Test Item Value Reference Range Interpretation Comments HEPATITIS A IgM (test code = NON-REACTIVE 83553) HEPATITIS B CORE IgM (test code NON-REACTIVE = 4644) HEPATITIS B SURF AG (test code = NON-REACTIVE 2739) HEPATITIS C ANTIBODY (test code NON-REACTIVE = 4675) INTERPRETATION HEPATITIS A: (NOTE) (test code = 2552) INTERPRETATION HEPATITIS B: (NOTE) (test code = 47191) INTERPRETATION HEPATITIS C: (NOTE) (test code = 08296) ACUTE HEPATITIS [id number] 00:00:00 Test Item Value Reference Range Interpretation Comments HEPATITIS A IgM (test code = NON-REACTIVE 91683) HEPATITIS B CORE IgM (test code NON-REACTIVE = 4644) HEPATITIS B SURF AG (test code = NON-REACTIVE 2739) HEPATITIS C ANTIBODY (test code NON-REACTIVE = 4675) INTERPRETATION HEPATITIS A: (NOTE) (test code = 2552) INTERPRETATION HEPATITIS B: (NOTE) (test code = 77216) INTERPRETATION HEPATITIS C: (NOTE) (test code = 96129) [id number] 00:00:00 Test Item Value Reference Range Interpretation Comments RPR RESULT (test code = NON-REACTIVE 3501) RPR TITER (test code = 3500) NOT INDIC. TITER [id number] 00:00:00 Test Item Value Reference Range Interpretation Comments RPR RESULT (test code = NON-REACTIVE 3501) RPR TITER (test code = 3500) NOT INDIC. TITER [id number] 00:00:00 Test Item Value Reference Range Interpretation Comments RPR RESULT (test code = NON-REACTIVE 3501) RPR TITER (test code = 3500) NOT INDIC. TITER HIV AB/AG COMBO RFLX [id number] 00:00:00 Test Item Value Reference Range Interpretation Comments HIV 1/2 4TH GEN, RFLX CONF (test NON-REACTIVE code = 3514) ACUTE HEPATITIS [id number] 00:00:00 Test Item Value Reference Range Interpretation Comments HEPATITIS A IgM (test code = NON-REACTIVE 84576) HEPATITIS B CORE IgM (test code NON-REACTIVE = 4644) HEPATITIS B SURF AG (test code = NON-REACTIVE 2739) HEPATITIS C ANTIBODY (test code NON-REACTIVE = 4675) INTERPRETATION HEPATITIS A: (NOTE) (test code = 2552) INTERPRETATION HEPATITIS B: (NOTE) (test code = 97271) INTERPRETATION HEPATITIS C: (NOTE) (test code = 63668) ACUTE HEPATITIS [id number] 00:00:00 Test Item Value Reference Range Interpretation Comments HEPATITIS A IgM (test code = NON-REACTIVE 50544) HEPATITIS B CORE IgM (test code NON-REACTIVE = 4644) HEPATITIS B SURF AG (test code = NON-REACTIVE 2739) HEPATITIS C ANTIBODY (test code NON-REACTIVE = 4675) INTERPRETATION HEPATITIS A: (NOTE) (test code = 2552) INTERPRETATION HEPATITIS B: (NOTE) (test code = 57969) INTERPRETATION HEPATITIS C: (NOTE) (test code = 74833) [id number] 00:00:00 Test Item Value Reference Range Interpretation Comments RPR RESULT (test code = NON-REACTIVE 3501) RPR TITER (test code = 3500) NOT INDIC. TITER [id number] 00:00:00 Test Item Value Reference Range Interpretation Comments RPR RESULT (test code = NON-REACTIVE 3501) RPR TITER (test code = 3500) NOT INDIC. TITER [id number] 00:00:00 Test Item Value Reference Range Interpretation Comments RPR RESULT (test code = NON-REACTIVE 3501) RPR TITER (test code = 3500) NOT INDIC. TITER HIV AB/AG COMBO RFLX [id number] 00:00:00 Test Item Value Reference Range Interpretation Comments HIV 1/2 4TH GEN, RFLX CONF (test NON-REACTIVE code = 3514) HIV AB/AG COMBO RFLX [id number] 00:00:00 Test Item Value Reference Range Interpretation Comments HIV 1/2 4TH GEN, RFLX CONF (test NON-REACTIVE code = 3514) ACUTE HEPATITIS [id number] 00:00:00 Test Item Value Reference Range Interpretation Comments HEPATITIS A IgM (test code = NON-REACTIVE 51836) HEPATITIS B CORE IgM (test code NON-REACTIVE = 4644) HEPATITIS B SURF AG (test code = NON-REACTIVE 2739) HEPATITIS C ANTIBODY (test code NON-REACTIVE = 4675) HCV INDEX (test code = 29058) 0.13 INTERPRETATION HEPATITIS A: (NOTE) (test code = 2552) INTERPRETATION HEPATITIS B: (NOTE) (test code = 78241) INTERPRETATION HEPATITIS C: (NOTE) (test code = 71093) ACUTE HEPATITIS [id number] 00:00:00 Test Item Value Reference Range Interpretation Comments HEPATITIS A IgM (test code = NON-REACTIVE 17404) HEPATITIS B CORE IgM (test code NON-REACTIVE = 4644) HEPATITIS B SURF AG (test code = NON-REACTIVE 2739) HEPATITIS C ANTIBODY (test code NON-REACTIVE = 4675) HCV INDEX (test code = 46028) 0.13 INTERPRETATION HEPATITIS A: (NOTE) (test code = 2552) INTERPRETATION HEPATITIS B: (NOTE) (test code = 83458) INTERPRETATION HEPATITIS C: (NOTE) (test code = 06909) GC AND CHLAMYDIA, AMPLIFIED, [id number] 00:00:00 Test Item Value Reference Range Interpretation Comments GONORRHEA, TMA (test code = 23993) NEGATIVE CHLAMYDIA, TMA (test code = 06899) NEGATIVE GC AND CHLAMYDIA, AMPLIFIED, [id number] 00:00:00 Test Item Value Reference Range Interpretation Comments GONORRHEA, TMA (test code = 44572) NEGATIVE CHLAMYDIA, TMA (test code = 19015) NEGATIVE [id number] 00:00:00 Test Item Value Reference Range Interpretation Comments RPR RESULT (test code = NON-REACTIVE 3501) RPR TITER (test code = 3500) NOT INDIC. TITER [id number] 00:00:00 Test Item Value Reference Range Interpretation Comments RPR RESULT (test code = NON-REACTIVE 3501) RPR TITER (test code = 3500) NOT INDIC. TITER [id number] 00:00:00 Test Item Value Reference Range Interpretation Comments RPR RESULT (test code = NON-REACTIVE 3501) RPR TITER (test code = 3500) NOT INDIC. TITER HIV AB/AG COMBO RFLX [id number] 00:00:00 Test Item Value Reference Range Interpretation Comments HIV 1/2 4TH GEN, RFLX CONF (test NON-REACTIVE code = 3514) HIV AB/AG COMBO RFLX [id number] 00:00:00 Test Item Value Reference Range Interpretation Comments HIV 1/2 4TH GEN, RFLX CONF (test NON-REACTIVE code = 3514) HIV AB/AG COMBO RFLX [id number] 00:00:00 Test Item Value Reference Range Interpretation Comments HIV 1/2 4TH GEN, RFLX CONF (test NON-REACTIVE code = 3514) ACUTE HEPATITIS [id number] 00:00:00 Test Item Value Reference Range Interpretation Comments HEPATITIS A IgM (test code = NON-REACTIVE 14633) HEPATITIS B CORE IgM (test code NON-REACTIVE = 4644) HEPATITIS B SURF AG (test code = NON-REACTIVE 2739) HEPATITIS C ANTIBODY (test code NON-REACTIVE = 4675) HCV INDEX (test code = 63315) 0.13 INTERPRETATION HEPATITIS A: (NOTE) (test code = 2552) INTERPRETATION HEPATITIS B: (NOTE) (test code = 83177) INTERPRETATION HEPATITIS C: (NOTE) (test code = 15649) ACUTE HEPATITIS [id number] 00:00:00 Test Item Value Reference Range Interpretation Comments HEPATITIS A IgM (test code = NON-REACTIVE 62765) HEPATITIS B CORE IgM (test code NON-REACTIVE = 4644) HEPATITIS B SURF AG (test code = NON-REACTIVE 2739) HEPATITIS C ANTIBODY (test code NON-REACTIVE = 4675) HCV INDEX (test code = 18925) 0.13 INTERPRETATION HEPATITIS A: (NOTE) (test code = 2552) INTERPRETATION HEPATITIS B: (NOTE) (test code = 19165) INTERPRETATION HEPATITIS C: (NOTE) (test code = 26642) HIV AB/AG COMBO RFLX [id number] 00:00:00 Test Item Value Reference Range Interpretation Comments HIV 1/2 4TH GEN, RFLX CONF (test NON-REACTIVE code = 3514) GC AND CHLAMYDIA, AMPLIFIED, [id number] 00:00:00 Test Item Value Reference Range Interpretation Comments GONORRHEA, TMA (test code = 90307) NEGATIVE CHLAMYDIA, TMA (test code = 69762) NEGATIVE GC AND CHLAMYDIA, AMPLIFIED, [id number] 00:00:00 Test Item Value Reference Range Interpretation Comments GONORRHEA, TMA (test code = 07814) NEGATIVE CHLAMYDIA, TMA (test code = 45996) NEGATIVE [id number] 00:00:00 Test Item Value Reference Range Interpretation Comments RPR RESULT (test code = NON-REACTIVE 3501) RPR TITER (test code = 3500) NOT INDIC. TITER [id number] 00:00:00 Test Item Value Reference Range Interpretation Comments RPR RESULT (test code = NON-REACTIVE 3501) RPR TITER (test code = 3500) NOT INDIC. TITER [id number] 00:00:00 Test Item Value Reference Range Interpretation Comments RPR RESULT (test code = NON-REACTIVE 3501) RPR TITER (test code = 3500) NOT INDIC. TITER ACUTE HEPATITIS [id number] 00:00:00 Test Item Value Reference Range Interpretation Comments HEPATITIS A IgM (test code = NON-REACTIVE 96952) HEPATITIS B CORE IgM (test code NON-REACTIVE = 4644) HEPATITIS B SURF AG (test code = NON-REACTIVE 2739) HEPATITIS C ANTIBODY (test code NON-REACTIVE = 4675) HCV INDEX (test code = 47019) 0.13 INTERPRETATION HEPATITIS A: (NOTE) (test code = 2552) INTERPRETATION HEPATITIS B: (NOTE) (test code = 12281) INTERPRETATION HEPATITIS C: (NOTE) (test code = 30458) ACUTE HEPATITIS [id number] 00:00:00 Test Item Value Reference Range Interpretation Comments HEPATITIS A IgM (test code = NON-REACTIVE 27575) HEPATITIS B CORE IgM (test code NON-REACTIVE = 4644) HEPATITIS B SURF AG (test code = NON-REACTIVE 2739) HEPATITIS C ANTIBODY (test code NON-REACTIVE = 4675) HCV INDEX (test code = 31008) 0.13 INTERPRETATION HEPATITIS A: (NOTE) (test code = 2552) INTERPRETATION HEPATITIS B: (NOTE) (test code = 46736) INTERPRETATION HEPATITIS C: (NOTE) (test code = 57765) GC AND CHLAMYDIA, AMPLIFIED, [id number] 00:00:00 Test Item Value Reference Range Interpretation Comments GONORRHEA, TMA (test code = 94091) NEGATIVE CHLAMYDIA, TMA (test code = 72214) NEGATIVE GC AND CHLAMYDIA, AMPLIFIED, [id number] 00:00:00 Test Item Value Reference Range Interpretation Comments GONORRHEA, TMA (test code = 88725) NEGATIVE CHLAMYDIA, TMA (test code = 05499) NEGATIVE [id number] 00:00:00 Test Item Value Reference Range Interpretation Comments RPR RESULT (test code = NON-REACTIVE 3501) RPR TITER (test code = 3500) NOT INDIC. TITER [id number] 00:00:00 Test Item Value Reference Range Interpretation Comments RPR RESULT (test code = NON-REACTIVE 3501) RPR TITER (test code = 3500) NOT INDIC. TITER [id number] 00:00:00 Test Item Value Reference Range Interpretation Comments RPR RESULT (test code = NON-REACTIVE 3501) RPR TITER (test code = 3500) NOT INDIC. TITER [id number] 00:00:00 Test Item Value Reference Range Interpretation Comments RPR RESULT (test code = NON-REACTIVE 3501) RPR TITER (test code = 3500) NOT INDIC. TITER [id number] 00:00:00 Test Item Value Reference Range Interpretation Comments RPR RESULT (test code = NON-REACTIVE 3501) RPR TITER (test code = 3500) NOT INDIC. TITER [id number] 00:00:00 Test Item Value Reference Range Interpretation Comments RPR RESULT (test code = NON-REACTIVE 3501) RPR TITER (test code = 3500) NOT INDIC. TITER HIV AB/AG COMBO RFLX [id number] 00:00:00 Test Item Value Reference Range Interpretation Comments HIV 1/2 4TH GEN, RFLX CONF (test NON-REACTIVE code = 3514) HIV AB/AG COMBO RFLX [id number] 00:00:00 Test Item Value Reference Range Interpretation Comments HIV 1/2 4TH GEN, RFLX CONF (test NON-REACTIVE code = 3514) [id number] 00:00:00 Test Item Value Reference Range Interpretation Comments RPR RESULT (test code = NON-REACTIVE 3501) RPR TITER (test code = 3500) NOT INDIC. TITER [id number] 00:00:00 Test Item Value Reference Range Interpretation Comments RPR RESULT (test code = NON-REACTIVE 3501) RPR TITER (test code = 3500) NOT INDIC. TITER [id number] 00:00:00 Test Item Value Reference Range Interpretation Comments RPR RESULT (test code = NON-REACTIVE 3501) RPR TITER (test code = 3500) NOT INDIC. TITER [id number] 00:00:00 Test Item Value Reference Range Interpretation Comments RPR RESULT (test code = NON-REACTIVE 3501) RPR TITER (test code = 3500) NOT INDIC. TITER HIV AB/AG COMBO RFLX [id number] 00:00:00 Test Item Value Reference Range Interpretation Comments HIV 1/2 4TH GEN, RFLX CONF (test NON-REACTIVE code = 3514) HIV AB/AG COMBO RFLX [id number] 00:00:00 Test Item Value Reference Range Interpretation Comments HIV 1/2 4TH GEN, RFLX CONF (test NON-REACTIVE code = 3514) [id number] 00:00:00 Test Item Value Reference Range Interpretation Comments RPR RESULT (test code = NON-REACTIVE 3501) RPR TITER (test code = 3500) NOT INDIC. TITER [id number] 00:00:00 Test Item Value Reference Range Interpretation Comments RPR RESULT (test code = NON-REACTIVE 3501) RPR TITER (test code = 3500) NOT INDIC. TITER HIV AB/AG COMBO RFLX [id number] 00:00:00 Test Item Value Reference Range Interpretation Comments HIV 1/2 4TH GEN, RFLX CONF (test NON-REACTIVE code = 3514) HIV AB/AG COMBO RFLX [id number] 00:00:00 Test Item Value Reference Range Interpretation Comments HIV 1/2 4TH GEN, RFLX CONF (test NON-REACTIVE code = 3514) GC AND CHLAMYDIA, AMPLIFIED, [id number] 00:00:00 Test Item Value Reference Range Interpretation Comments GONORRHEA, TMA (test code = 68489) NEGATIVE CHLAMYDIA, TMA (test code = 85510) NEGATIVE GC AND CHLAMYDIA, AMPLIFIED, [id number] 00:00:00 Test Item Value Reference Range Interpretation Comments GONORRHEA, TMA (test code = 86454) NEGATIVE CHLAMYDIA, TMA (test code = 78370) NEGATIVE GC AND CHLAMYDIA, AMPLIFIED, [id number] 00:00:00 Test Item Value Reference Range Interpretation Comments GONORRHEA, TMA (test code = 12150) NEGATIVE CHLAMYDIA, TMA (test code = 08005) NEGATIVE GC AND CHLAMYDIA, AMPLIFIED, [id number] 00:00:00 Test Item Value Reference Range Interpretation Comments GONORRHEA, TMA (test code = 04986) NEGATIVE CHLAMYDIA, TMA (test code = 61063) NEGATIVE GC AND CHLAMYDIA, AMPLIFIED, [id number] 00:00:00 Test Item Value Reference Range Interpretation Comments GONORRHEA, TMA (test code = 82097) NEGATIVE CHLAMYDIA, TMA (test code = 32324) NEGATIVE GC AND CHLAMYDIA, AMPLIFIED, [id number] 00:00:00 Test Item Value Reference Range Interpretation Comments GONORRHEA, TMA (test code = 67176) NEGATIVE CHLAMYDIA, TMA (test code = 96518) NEGATIVE COMPREHENSIVE METABOLIC [id number] 00:00:00 Test Item Value Reference Range Interpretation Comments GLUCOSE (test code = 2217) 127 MG/DL BUN (test code = 2208) 5 MG/DL CREATININE (test code = 2214) 0.58 MG/DL eGFR AMER. (test code 148 ML/MIN/1.73 = 49435) eGFR NON- AMER. (test 128 ML/MIN/1.73 code = 30971) CALC BUN/CREAT (test code = 9 RATIO [...] code = 2219) 18 U/L COMPREHENSIVE METABOLIC [id number] 00:00:00 Test Item Value Reference Range Interpretation Comments GLUCOSE (test code = 2217) 127 MG/DL BUN (test code = 2208) 5 MG/DL CREATININE (test code = 2214) 0.58 MG/DL eGFR AMER. (test code 148 ML/MIN/1.73 = 25146) eGFR NON- AMER. (test 128 ML/MIN/1.73 code = 47092) CALC BUN/CREAT (test code = 9 RATIO [...] (test code = 2219) 18 U/L LIPID [id number] 00:00:00 Test Item Value Reference Range Interpretation Comments CHOLESTEROL (test code = 2210) 186 MG/DL TRIGLYCERIDES (test code = 2232) 106 MG/DL HDL CHOLESTEROL (test code = 2220) 54 MG/DL CALC LDL CHOL (test code = 2237) 111 MG/DL RISK RATIO LDL/HDL (test code = 2.05 RATIO 2238) LIPID [id number] 00:00:00 Test Item Value Reference Range Interpretation Comments CHOLESTEROL (test code = 2210) 186 MG/DL TRIGLYCERIDES (test code = 2232) 106 MG/DL HDL CHOLESTEROL (test code = 2220) 54 MG/DL CALC LDL CHOL (test code = 2237) 111 MG/DL RISK RATIO LDL/HDL (test code = 2.05 RATIO 2238) COMPREHENSIVE METABOLIC [id number] 00:00:00 Test Item Value Reference Range Interpretation Comments GLUCOSE (test code = 2217) 127 MG/DL BUN (test code = 2208) 5 MG/DL CREATININE (test code = 2214) 0.58 MG/DL eGFR AMER. (test code 148 ML/MIN/1.73 = 47904) eGFR NON- AMER. (test 128 ML/MIN/1.73 code = 84809) CALC BUN/CREAT (test code = 9 RATIO [...] code = 2219) 18 U/L COMPREHENSIVE METABOLIC [id number] 00:00:00 Test Item Value Reference Range Interpretation Comments GLUCOSE (test code = 2217) 127 MG/DL BUN (test code = 2208) 5 MG/DL CREATININE (test code = 2214) 0.58 MG/DL eGFR AMER. (test code 148 ML/MIN/1.73 = 89569) eGFR NON- AMER. (test 128 ML/MIN/1.73 code = 21780) CALC BUN/CREAT (test code = 9 RATIO [...] code = 2219) 18 U/L COMPREHENSIVE METABOLIC [id number] 00:00:00 Test Item Value Reference Range Interpretation Comments GLUCOSE (test code = 2217) 127 MG/DL BUN (test code = 2208) 5 MG/DL CREATININE (test code = 2214) 0.58 MG/DL eGFR AMER. (test code 148 ML/MIN/1.73 = 66872) eGFR NON- AMER. (test 128 ML/MIN/1.73 code = 73082) CALC BUN/CREAT (test code = 9 RATIO [...] (test code = 2219) 18 U/L LIPID [id number] 00:00:00 Test Item Value Reference Range Interpretation Comments CHOLESTEROL (test code = 2210) 186 MG/DL TRIGLYCERIDES (test code = 2232) 106 MG/DL HDL CHOLESTEROL (test code = 2220) 54 MG/DL CALC LDL CHOL (test code = 2237) 111 MG/DL RISK RATIO LDL/HDL (test code = 2.05 RATIO 2238) LIPID [id number] 00:00:00 Test Item Value Reference Range Interpretation Comments CHOLESTEROL (test code = 2210) 186 MG/DL TRIGLYCERIDES (test code = 2232) 106 MG/DL HDL CHOLESTEROL (test code = 2220) 54 MG/DL CALC LDL CHOL (test code = 2237) 111 MG/DL RISK RATIO LDL/HDL (test code = 2.05 RATIO 2238) COMPREHENSIVE METABOLIC [id number] 00:00:00 Test Item Value Reference Range Interpretation Comments GLUCOSE (test code = 2217) 127 MG/DL BUN (test code = 2208) 5 MG/DL CREATININE (test code = 2214) 0.58 MG/DL eGFR AMER. (test code 148 ML/MIN/1.73 = 55365) eGFR NON- AMER. (test 128 ML/MIN/1.73 code = 60554) CALC BUN/CREAT (test code = 9 RATIO [...] (test code = 2219) 18 U/L LIPID [id number] 00:00:00 Test Item Value Reference Range Interpretation Comments CHOLESTEROL (test code = 2210) 186 MG/DL TRIGLYCERIDES (test code = 2232) 106 MG/DL HDL CHOLESTEROL (test code = 2220) 54 MG/DL CALC LDL CHOL (test code = 2237) 111 MG/DL RISK RATIO LDL/HDL (test code = 2.05 RATIO 2238) LIPID [id number] 00:00:00 Test Item Value Reference Range Interpretation Comments CHOLESTEROL (test code = 2210) 186 MG/DL TRIGLYCERIDES (test code = 2232) 106 MG/DL HDL CHOLESTEROL (test code = 2220) 54 MG/DL CALC LDL CHOL (test code = 2237) 111 MG/DL RISK RATIO LDL/HDL (test code = 2.05 RATIO 2238) GC AND CHLAMYDIA, AMPLIFIED, [id number] 00:00:00 Test Item Value Reference Range Interpretation Comments GONORRHEA, TMA (test code = 96993) NEGATIVE CHLAMYDIA, TMA (test code = 87077) NEGATIVE GC AND CHLAMYDIA, AMPLIFIED, [id number] 00:00:00 Test Item Value Reference Range Interpretation Comments GONORRHEA, TMA (test code = 94018) NEGATIVE CHLAMYDIA, TMA (test code = 64389) NEGATIVE GC AND CHLAMYDIA, AMPLIFIED, [id number] 00:00:00 Test Item Value Reference Range Interpretation Comments GONORRHEA, TMA (test code = 23098) NEGATIVE CHLAMYDIA, TMA (test code = 08347) NEGATIVE GC AND CHLAMYDIA, AMPLIFIED, [id number] 00:00:00 Test Item Value Reference Range Interpretation Comments GONORRHEA, TMA (test code = 63145) NEGATIVE CHLAMYDIA, TMA (test code = 78228) NEGATIVE GC AND CHLAMYDIA, AMPLIFIED, [id number] 00:00:00 Test Item Value Reference Range Interpretation Comments GONORRHEA, TMA (test code = 19003) NEGATIVE CHLAMYDIA, TMA (test code = 74750) NEGATIVE GC AND CHLAMYDIA, AMPLIFIED, [id number] 00:00:00 Test Item Value Reference Range Interpretation Comments GONORRHEA, TMA (test code = 64169) NEGATIVE CHLAMYDIA, TMA (test code = 42360) NEGATIVE VAGINAL PATHOGENS DNA [id number] 00:00:00 Test Item Value Reference Range Interpretation Comments YOKO SPECIES (test code = ) POSITIVE G. VAGINALIS (test code = 78957) NEGATIVE T. VAGINALIS (test code = 07942) NEGATIVE VAGINAL PATHOGENS DNA [id number] 00:00:00 Test Item Value Reference Range Interpretation Comments YOKO SPECIES (test code = 24256) POSITIVE G. VAGINALIS (test code = 02750) NEGATIVE T. VAGINALIS (test code = 10123) NEGATIVE VAGINAL PATHOGENS DNA [id number] 00:00:00 Test Item Value Reference Range Interpretation Comments YOKO SPECIES (test code = 02243) POSITIVE G. VAGINALIS (test code = 76160) NEGATIVE T. VAGINALIS (test code = 80783) NEGATIVE VAGINAL PATHOGENS DNA [id number] 00:00:00 Test Item Value Reference Range Interpretation Comments YOKO SPECIES (test code = 73950) POSITIVE G. VAGINALIS (test code = 51242) NEGATIVE T. VAGINALIS (test code = 52378) NEGATIVE VAGINAL PATHOGENS DNA [id number] 00:00:00 Test Item Value Reference Range Interpretation Comments YOKO SPECIES (test code = 91510) POSITIVE G. VAGINALIS (test code = 90300) NEGATIVE T. VAGINALIS (test code = 76613) NEGATIVE VAGINAL PATHOGENS DNA [id number] 00:00:00 Test Item Value Reference Range Interpretation Comments YOKO SPECIES (test code = ) POSITIVE G. VAGINALIS (test code = 26694) NEGATIVE T. VAGINALIS (test code = 11578) NEGATIVE GC AND CHLAMYDIA, AMPLIFIED, [id number] 00:00:00 Test Item Value Reference Range Interpretation Comments GONORRHEA, TMA (test code = 06858) NEGATIVE CHLAMYDIA, TMA (test code = 86565) NEGATIVE GC AND CHLAMYDIA, AMPLIFIED, [id number] 00:00:00 Test Item Value Reference Range Interpretation Comments GONORRHEA, TMA (test code = 62701) NEGATIVE CHLAMYDIA, TMA (test code = 44324) NEGATIVE GC AND CHLAMYDIA, AMPLIFIED, [id number] 00:00:00 Test Item Value Reference Range Interpretation Comments GONORRHEA, TMA (test code = 94844) NEGATIVE CHLAMYDIA, TMA (test code = 65566) NEGATIVE GC AND CHLAMYDIA, AMPLIFIED, [id number] 00:00:00 Test Item Value Reference Range Interpretation Comments GONORRHEA, TMA (test code = 73171) NEGATIVE CHLAMYDIA, TMA (test code = 62516) NEGATIVE GC AND CHLAMYDIA, AMPLIFIED, [id number] 00:00:00 Test Item Value Reference Range Interpretation Comments GONORRHEA, TMA (test code = 47738) NEGATIVE CHLAMYDIA, TMA (test code = 88294) NEGATIVE GC AND CHLAMYDIA, AMPLIFIED, [id number] 00:00:00 Test Item Value Reference Range Interpretation Comments GONORRHEA, TMA (test code = 56177) NEGATIVE CHLAMYDIA, TMA (test code = 41282) NEGATIVE CULTURE, [id number] 00:00:00 Test Item Value Reference Range Interpretation Comments CULTURE, URINE (test SPECIMEN NUMBER: code = 15581) [id number] CULTURE, [id number] 00:00:00 Test Item Value Reference Range Interpretation Comments CULTURE, URINE (test SPECIMEN NUMBER: code = 68826) [id number] CULTURE, [id number] 00:00:00 Test Item Value Reference Range Interpretation Comments CULTURE, URINE (test SPECIMEN NUMBER: code = 67927) [id number] CULTURE, [id number] 00:00:00 Test Item Value Reference Range Interpretation Comments CULTURE, URINE (test SPECIMEN NUMBER: code = 91672) [id number] CULTURE, [id number] 00:00:00 Test Item Value Reference Range Interpretation Comments CULTURE, URINE (test SPECIMEN NUMBER: code = 90441) [id number] CULTURE, [id number] 00:00:00 Test Item Value Reference Range Interpretation Comments CULTURE, URINE (test SPECIMEN NUMBER: code = 48486) [id number] HEMOGLOBIN [id number] 00:00:00 Test Item Value Reference Range Interpretation Comments HEMOGLOBIN A1c (test code = 41340) 5.5 % HEMOGLOBIN [id number] 00:00:00 Test Item Value Reference Range Interpretation Comments HEMOGLOBIN A1c (test code = 30488) 5.5 % HEMOGLOBIN [id number] 00:00:00 Test Item Value Reference Range Interpretation Comments HEMOGLOBIN A1c (test code = 49639) 5.5 % CBC W/AUTO [id number] 00:00:00 Test Item Value Reference Range Interpretation [...] code = 1015) 310 K/UL CBC W/AUTO [id number] 00:00:00 Test Item Value Reference Range Interpretation [...] code = 1015) 310 K/UL CBC W/AUTO [id number] 00:00:00 Test Item Value Reference Range Interpretation [...] code = 1015) 310 K/UL COMPREHENSIVE METABOLIC [id number] 00:00:00 Test Item Value Reference Range Interpretation Comments GLUCOSE (test code = 2217) 73 MG/DL BUN (test code = 2208) 10 MG/DL CREATININE (test code = 2214) 0.51 MG/DL eGFR AMER. (test code 158 ML/MIN/1.73 = 22956) eGFR NON- AMER. (test 136 ML/MIN/1.73 code = 88948) CALCULATED BUN/CREAT (test 20 RATIO code = [...] code = 2219) 23 U/L COMPREHENSIVE METABOLIC [id number] 00:00:00 Test Item Value Reference Range Interpretation Comments GLUCOSE (test code = 2217) 73 MG/DL BUN (test code = 2208) 10 MG/DL CREATININE (test code = 2214) 0.51 MG/DL eGFR AMER. (test code 158 ML/MIN/1.73 = 99537) eGFR NON- AMER. (test 136 ML/MIN/1.73 code = 24064) CALCULATED BUN/CREAT (test 20 RATIO code = [...] (test code = 2219) 23 U/L LIPID [id number] 00:00:00 Test Item Value Reference Range Interpretation Comments CHOLESTEROL (test code = 2210) 167 MG/DL TRIGLYCERIDES (test code = 2232) 109 MG/DL HDL CHOLESTEROL (test code = 2220) 58 MG/DL CALCULATED LDL CHOL (test code = 87 MG/DL 2237) RISK RATIO LDL/HDL (test code = 1.50 RATIO 2238) LIPID [id number] 00:00:00 Test Item Value Reference Range Interpretation [...] (test code = 2821) 1.5 UIU/ML HEMOGLOBIN [id number] 00:00:00 Test Item Value Reference Range Interpretation Comments HEMOGLOBIN A1c (test code = 68614) 5.5 % HEMOGLOBIN [id number] 00:00:00 Test Item Value Reference Range Interpretation Comments HEMOGLOBIN A1c (test code = 48155) 5.5 % HEMOGLOBIN [id number] 00:00:00 Test Item Value Reference Range Interpretation Comments HEMOGLOBIN A1c (test code = 70197) 5.5 % HEMOGLOBIN [id number] 00:00:00 Test Item Value Reference Range Interpretation Comments HEMOGLOBIN A1c (test code = 22112) 5.5 % HEMOGLOBIN [id number] 00:00:00 Test Item Value Reference Range Interpretation Comments HEMOGLOBIN A1c (test code = 95408) 5.5 % CBC W/AUTO [id number] 00:00:00 Test Item Value Reference Range Interpretation [...] code = 1015) 310 K/UL CBC W/AUTO [id number] 00:00:00 Test Item Value Reference Range Interpretation [...] code = 1015) 310 K/UL CBC W/AUTO [id number] 00:00:00 Test Item Value Reference Range Interpretation [...] code = 1015) 310 K/UL COMPREHENSIVE METABOLIC [id number] 00:00:00 Test Item Value Reference Range Interpretation Comments GLUCOSE (test code = 2217) 73 MG/DL BUN (test code = 2208) 10 MG/DL CREATININE (test code = 2214) 0.51 MG/DL eGFR AMER. (test code 158 ML/MIN/1.73 = 70228) eGFR NON- AMER. (test 136 ML/MIN/1.73 code = 53935) CALCULATED BUN/CREAT (test 20 RATIO code = [...] code = 2219) 23 U/L COMPREHENSIVE METABOLIC [id number] 00:00:00 Test Item Value Reference Range Interpretation Comments GLUCOSE (test code = 2217) 73 MG/DL BUN (test code = 2208) 10 MG/DL CREATININE (test code = 2214) 0.51 MG/DL eGFR AMER. (test code 158 ML/MIN/1.73 = 37751) eGFR NON- AMER. (test 136 ML/MIN/1.73 code = 97426) CALCULATED BUN/CREAT (test 20 RATIO code = [...] (test code = 2219) 23 U/L LIPID [id number] 00:00:00 Test Item Value Reference Range Interpretation Comments CHOLESTEROL (test code = 2210) 167 MG/DL TRIGLYCERIDES (test code = 2232) 109 MG/DL HDL CHOLESTEROL (test code = 2220) 58 MG/DL CALCULATED LDL CHOL (test code = 87 MG/DL 7) RISK RATIO LDL/HDL (test code = 1.50 RATIO 2238) LIPID [id number] 00:00:00 Test Item Value Reference Range Interpretation [...] (test code = 2821) 1.5 UIU/ML HEMOGLOBIN [id number] 00:00:00 Test Item Value Reference Range Interpretation Comments HEMOGLOBIN A1c (test code = 06542) 5.5 % CBC W/AUTO [id number] 00:00:00 Test Item Value Reference Range Interpretation [...] code = 1015) 310 K/UL CBC W/AUTO [id number] 00:00:00 Test Item Value Reference Range Interpretation [...] code = 1015) 310 K/UL CBC W/AUTO [id number] 00:00:00 Test Item Value Reference Range Interpretation [...] code = 1015) 310 K/UL COMPREHENSIVE METABOLIC [id number] 00:00:00 Test Item Value Reference Range Interpretation Comments GLUCOSE (test code = 2217) 73 MG/DL BUN (test code = 2208) 10 MG/DL CREATININE (test code = 2214) 0.51 MG/DL eGFR AMER. (test code 158 ML/MIN/1.73 = 52680) eGFR NON- AMER. (test 136 ML/MIN/1.73 code = 65433) CALCULATED BUN/CREAT (test 20 RATIO code = [...] code = 2219) 23 U/L COMPREHENSIVE METABOLIC [id number] 00:00:00 Test Item Value Reference Range Interpretation Comments GLUCOSE (test code = 2217) 73 MG/DL BUN (test code = 2208) 10 MG/DL CREATININE (test code = 2214) 0.51 MG/DL eGFR AMER. (test code 158 ML/MIN/1.73 = 79431) eGFR NON- AMER. (test 136 ML/MIN/1.73 code = 92722) CALCULATED BUN/CREAT (test 20 RATIO code = [...] (test code = 2219) 23 U/L LIPID [id number] 00:00:00 Test Item Value Reference Range Interpretation Comments CHOLESTEROL (test code = 2210) 167 MG/DL TRIGLYCERIDES (test code = 2232) 109 MG/DL HDL CHOLESTEROL (test code = 2220) 58 MG/DL CALCULATED LDL CHOL (test code = 87 MG/DL 2236) RISK RATIO LDL/HDL (test code = 1.50 RATIO 2238) LIPID [id number] 00:00:00 Test Item Value Reference Range Interpretation [...]
[2023-02-20] MEDS ORDERED: predniSONE 20 MG TAB ONE (20:52)
[2023-02-20] MEDS ORDERED: BENZONATATE 100 MG CAP PO ONE (20:52)
[2023-02-20] MEDS ORDERED: MAGNESIUM OXIDE 400 MG TAB ONE (20:52)
[2023-02-20] MEDS ORDERED: IPRATROPIUM BROM 0.5MG/2.5ML ONE (20:53)
[2023-02-20] MEDS ORDERED: ALBUTEROL 2.5 MG/3 ML NEB SOL ONE (20:53)
[2023-02-20 21:31] LABS: SARS-CoV-2 Antigen Rapid Res Negative (Negative)
--- NOTE | 2023-02-20 22:49 | ER ---
Nurse's Notes [facility] Name: Taylor Rodriguez Age: 27 yrs Sex: Female : 1995 Arrival Date: 02/20/2023 Time: 20:06 Bed 12 Private MD: Diagnosis: Mild intermittent asthma with (acute) exacerbation Presentation: 02/20 20:17 Chief complaint: Patient states: wheezing not improved with licha e albuterol. Coronavirus screen: Vaccine status: Patient reports receiving the 2nd dose of the covid vaccine. Ebola Screen: Patient negative for fever greater than or equal to 101.5 degrees Fahrenheit, and additional compatible Ebola Virus Disease symptoms. 20:17 Method Of Arrival: EMS: [facility] 21:50 Risk Assessment: Do you want to hurt yourself or someone else? Patient reports no pf1 desire to harm self or others. 21:50 Initial Sepsis Screen: Does the patient meet any 2 criteria? No. Patient's initial pf1 sepsis screen is negative. Does the patient have a suspected source of infection? No. Patient's initial sepsis screen is negative. 21:50 Acuity: MILAN 3 pf1 Triage Assessment: 20:20 General: Appears in no apparent distress. comfortable, Behavior is calm, cooperative. kl Pain: Denies pain. Respiratory: Airway is patent Trachea midline Respiratory effort is even, unlabored, Respiratory pattern is regular, symmetrical, Breath sounds with wheezes in left upper lobe. Historical: - Allergies: 20:20 Naproxen; kl - PMHx: 20:20 Anxiety; Bipolar disorder; Chronic pain; Depression; Fibromyalgia; High Blood Pressure; kl Schizophrenia; Sleep Apnea; - PSHx: 20:20 None; kl - Immunization history:: Adult Immunizations not up to date. - Social history:: Smoking status: Patient denies any tobacco usage or history of. - Family history:: not pertinent. Screenin:46 [facility] ED Fall Risk Assessment (Adult) History of falling in the last 3 months, kl including since admission No falls in past 3 months (0 pts) Confusion or Disorientation No (0 pts) Intoxicated or Sedated No (0 pts) Impaired Gait No (0 pts) Mobility Assist Device Used No (0 pt) Altered Elimination No (0 pt) Score/Fall Risk Level 0 - 2 = Low Risk Oriented to surroundings, Maintained a safe environment. Abuse screen: Denies threats or abuse. Nutritional screening: No deficits noted. Tuberculosis screening: No symptoms or risk factors identified. Assessment: 21:45 Reassessment: Patient appears in no apparent distress at this time. Patient and/or kl family updated on plan of care and expected duration. Pain level reassessed. Patient is alert, oriented x 3, equal unlabored respirations, skin warm/dry/pink. Patient denies pain at this time. Patient states feeling better. Patient states symptoms have improved. Vital Signs: 20:17 BP 130 / 70; Pulse 80; Resp 20; Temp 97(TE); Pulse Ox 100% on R/A; Weight 136.08 kg kl (R); Height 5 ft. 4 in. ; 21:46 BP 140 / 66; Pulse 80; Resp 16; Pulse Ox 99% on R/A; kl 20:17 Body Mass Index 51.49 (136.08 kg, 162.56 cm) ED Course: 20:16 Patient arrived in ED. jb4 20:16 Gibson Montes MD is Attending Physician. sp4 21:21 Influenza Screen (a \T\ B) Sent. ds4 21:21 SARS RAPID Sent. ds4 21:46 Patient has correct armband on for positive identification. kl 21:50 Arm band placed on right wrist. pf1 22:34 Test, Urine Sent. cg 23:00 No provider procedures requiring assistance completed. pf1 23:00 Patient did not have IV access during this emergency room visit. pf1 02/21 08:23 Triage completed. pf1 Administered Medications: 02/20 20:49 Drug: predniSONE PO 60 mg Route: PO; kl 21:49 Follow up: Response: No adverse reaction; Marked relief of symptoms pf1 20:49 Drug: Magnesium PO 400 mg Route: PO; kl 21:45 Follow up: Response: No adverse reaction 20:49 Drug: Albuterol Inhalation 2.5 mg Route: Inhalation; kl 21:45 Follow up: Response: No adverse reaction; Marked relief of symptoms kl 20:49 Drug: Tessalon Perle PO 200 mg Route: PO; kl 21:45 Follow up: Response: No adverse reaction; Marked relief of symptoms kl 20:50 Drug: DuoNeb Nebulize (3:1) (2.5 mg - 0.5 mg) 3 ml Route: Nebulizer; 21:45 Follow up: Response: No adverse reaction; Marked relief of symptoms Medication: 23:00 VIS not applicable for this client. pf1 Outcome: 22:48 Discharge ordered by . sp4 23:00 Discharged to home via wheelchair, with family. pf1 23:00 Condition: improved 23:00 Discharge instructions given to patient, Instructed on discharge instructions, follow up and referral plans. Demonstrated understanding of instructions, follow-up care, medications, Prescriptions given X 3. 23:00 Patient left the ED. pf1 Signatures: Ame Garduno RN RN Inocente Nolan ds4 Kamilal Birmingham RN RN Link Nath RN RN jb4 Glenny Faith RN RN pf1 Gibson Montes MD MD sp4 Corrections: (The following items were deleted from the chart) 02/21 08:23 06 23:27 Patient left the ED. pf1 pf1
--- NOTE | 2023-02-20 22:49 | EDPHYS ---
Physician Documentation [facility] Name: Taylor Rodriguez Age: 27 yrs Sex: Female : 1995 Arrival Date: 02/20/2023 Time: 20:06 Bed 12 Private MD: ED Physician Gibson Montes HPI: 02/20 20:18 This 27 yrs old Black Female presents to ER via Unassigned with complaints of Dyspnea, sp4 history of asthma. 20:20 PMH Anxiety; Bipolar disorder; Chronic pain; Depression; Fibromyalgia; High Blood sp4 Pressure; Schizophrenia; Sleep Apnea. 27-year-old black female with past medical history listed above who presents with acute onset of shortness of breath associated with wheezing with EMS. EMS reported that patient's mother called EMS for shortness of breath. Patient was given albuterol treatment while on ambulance and it has caused some improvement. Patient does not inhaler at home based on EMS report. On arrival patient reports some mild dyspnea but otherwise has no other complaints. . Historical: - Allergies: 20:20 Naproxen; kl - PMHx: 20:20 Anxiety; Bipolar disorder; Chronic pain; Depression; Fibromyalgia; High Blood Pressure; kl Schizophrenia; Sleep Apnea; - PSHx: 20:20 None; kl - Immunization history:: Adult Immunizations not up to date. - Social history:: Smoking status: Patient denies any tobacco usage or history of. - Family history:: not pertinent. ROS: 20:20 Constitutional: Negative for fever, chills, and weight loss, Eyes: Negative for injury, sp4 pain, redness, and discharge, ENT: Negative for injury, pain, and discharge, Neck: Negative for injury, pain, and swelling, Cardiovascular: Negative for chest pain, palpitations, and edema, Respiratory: Negative for cough, wheezing, and pleuritic chest pain, Positive for dyspnea , positive for wheezing. Abdomen/GI: Negative for abdominal pain, nausea, vomiting, diarrhea, and constipation, Back: Negative for injury and pain, : Negative for injury, bleeding, discharge, and swelling, MS/Extremity: Negative for injury and deformity, Skin: Negative for injury, rash, and discoloration, Neuro: Negative for headache, weakness, numbness, tingling, and seizure, Psych: Negative for depression, anxiety, Allergy/Immunology: Negative for hives, rash, and allergies Endocrine: Negative for neck swelling, polydipsia, polyuria, polyphagia, and weight changes Hematologic/Lymphatic: Negative for swollen nodes, abnormal bleeding, and unusual bruising Exam: 20:20 Constitutional: This is a well developed, well nourished patient who is awake, alert, sp4 and in no acute distress. Head/Face: Normocephalic, atraumatic. Eyes: Pupils equal round and reactive to light, extra-ocular motions intact. Lids and lashes normal. Conjunctiva and sclera are not injected. Cornea within normal limits. Periorbital areas with no swelling, redness, or edema. ENT: Nares patent. No nasal discharge, no septal abnormalities noted. Tympanic membranes are normal and external auditory canals are clear. Oropharynx with no redness, swelling, or masses, exudates, or evidence of obstruction, uvula midline. Mucous membranes moist. Neck: Trachea midline, no thyromegaly or masses palpated, and no cervical lymphadenopathy. Supple, full range of motion without nuchal rigidity, or vertebral point tenderness. Chest/axilla: Normal chest wall appearance and motion. Nontender with no deformity. No lesions are appreciated. Cardiovascular: Regular rate and rhythm with a normal S1 and S2. No gallops, murmurs, or rubs. Normal PMI, no JVD. No pulse deficits. Respiratory: Lungs have equal breath sounds bilaterally, clear to auscultation and percussion. No rales, rhonchi noted. No increased work of breathing, no retractions or nasal flaring. Positive left expiratory wheezing rather mild . Abdomen/GI: Soft, non-tender, with normal bowel sounds. No distension or tympany. No guarding or rebound. No evidence of tenderness throughout. Back: No spinal tenderness. No costovertebral tenderness. Skin: Warm, dry with normal turgor. Normal color with no rashes, no lesions, and no evidence of cellulitis. MS/ Extremity: Pulses equal, no cyanosis. Neurovascular intact. Full, normal range of motion. Neuro: Awake and alert, GCS 15, oriented to person, place, time, and situation. Cranial nerves II-XII grossly intact. Motor strength 5/5 in all extremities. Sensory grossly intact. Psych: Awake, alert, with orientation to person, place and time. Behavior, mood, and affect are within normal limits Vital Signs: 20:17 BP 130 / 70; Pulse 80; Resp 20; Temp 97(TE); Pulse Ox 100% on R/A; Weight 136.08 kg kl (R); Height 5 ft. 4 in. ; 21:46 BP 140 / 66; Pulse 80; Resp 16; Pulse Ox 99% on R/A; kl 20:17 Body Mass Index 51.49 (136.08 kg, 162.56 cm) MDM: 20:38 Patient medically screened. sp4 22:46 Data reviewed: vital signs, nurses notes, lab test result(s), Flu: negative UPT: sp4 negative. Consideration of Admission/Observation Escalation of care including admission/observation considered. ED course: Wheezing has resolved after breathing treatments. Patient stable for discharge home.. 02/20 20:17 Order name: SARS RAPID; Complete Time: 22:43 sp4 02/20 20:17 Order name: Influenza Screen (a \T\ B); Complete Time: 22:43 sp4 02/20 21:31 Order name: Glucose, Ancillary Testing; Complete Time: 22:43 EDMS 02/20 20:17 Order name: Accucheck Blood Glucose; Complete Time: 21:21 sp4 Administered Medications: 20:49 Drug: predniSONE PO 60 mg Route: PO; kl 21:49 Follow up: Response: No adverse reaction; Marked relief of symptoms pf1 20:49 Drug: Magnesium PO 400 mg Route: PO; kl 21:45 Follow up: Response: No adverse reaction kl 20:49 Drug: Albuterol Inhalation 2.5 mg Route: Inhalation; kl 21:45 Follow up: Response: No adverse reaction; Marked relief of symptoms kl 20:49 Drug: Tessalon Perle PO 200 mg Route: PO; kl 21:45 Follow up: Response: No adverse reaction; Marked relief of symptoms kl 20:50 Drug: DuoNeb Nebulize (3:1) (2.5 mg - 0.5 mg) 3 ml Route: Nebulizer; kl 21:45 Follow up: Response: No adverse reaction; Marked relief of symptoms kl Disposition Summary: 02/20/23 22:48 Discharge Ordered Location: Home sp4 Problem: new sp4 Symptoms: have improved sp4 Condition: Stable sp4 Diagnosis - Mild intermittent asthma with (acute) exacerbation sp4 Followup: sp4 - With: Private Physician - When: 7 - 10 days - Reason: Recheck today's complaints Discharge Instructions: - Discharge Summary Sheet sp4 - Asthma, Adult sp4 Prescriptions: - Ventolin HFA 90 mcg/actuation Inhalation HFA Aerosol Inhaler - inhale 1 puff by INHALATION route every 4 hours as needed for bronchospasm; sp4 administer via ventilator, dispensce with Spacer; 1 unit; Refills: 0, Product Selection Permitted - Albuterol Sulfate 2.5 mg /3 mL (0.083 %) Inhalation Solution for Nebulization - inhale 1 unit by NEBULIZATION route every 8 hours As needed Dispense with sp4 Nebulizer and adult mask , dispense 50 respules , 2 boxes; 50 unit; Refills: 0, Product Selection Permitted - Prednisone 20 mg Oral Tablet - take 2 tablets by ORAL route once daily for 5 days; 10 tablet; Refills: 0, sp4 Product Selection Permitted Signatures: Dispatcher [employer] Ame Dhillon RN RN kl Potepalov, Sergey, MD MD sp4 Glenny Faith RN pf1
[2023-02-20 23:39] VITALS: TEMP 97
[2023-02-20 23:40] VITALS: BP 140/66; O2SAT 99
== END 2023-02-20 23:27 | disposition home or self-care (01) ==
LOC: ER 20:06
DX: J45.21 Mild intermittent asthma with (acute) exacerbation (principal); Z20.822 Contact with and (suspected) exposure to COVID-19; Z88.6 Allergy status to analgesic agent
CPT/HCPCS: 36415; 82947; 87804 ×2; 94640; 99284; 87811; J7512; J7613; J7644

== ENCOUNTER 2023-03-17 19:28 | Emergency (ER) | payer OTHER ==
--- OUTSIDE RECORDS SUMMARY | 2023-03-17 20:28 | XMS REPORT | Continuity of Care Document ---
:1995 Author Organization [facility] t Address [address] [facility] [place] [address] Care Team Providers Name Role Phone Roman YOUNG, [facility] Primary Care Physician [phone] DARLIN VICK Attending Clinician Unavailable SPENSER STOKES Attending Clinician Unavailable GAURAV PURVIS Attending Clinician Unavailable MD ARAVIND Attending Clinician Unavailable ROBYN GARY Attending Clinician Unavailable CARLIE MAHER Attending Clinician Unavailable BYRON MALHOTRA Attending Clinician Unavailable ANGELICA NEVAREZ Attending Clinician Unavailable SIMI JOHN Attending Clinician Unavailable LAB90 Attending Clinician Unavailable OLENA TREVIÑO Attending Clinician Unavailable JAROD TURPIN Attending Clinician Unavailable PLABPA Attending Clinician Unavailable JENNIFER BYNUM Attending Clinician Unavailable JALYN CRUZ Attending Clinician Unavailable MANOLO MARTINEZ Attending Clinician Unavailable GAUTAM GIVENS Attending Clinician Unavailable PL, TECH 1 Attending Clinician Unavailable LAB47 Attending Clinician Unavailable MARIANO Attending Clinician Unavailable ANNEMARIE GRAFF Attending Clinician Unavailable Sandy EDWARDS, Alexandre Attending Clinician SHEY BIANCHI Attending Clinician Unavailable Doctor Unassigned, [place] Attending Clinician Unavailable Shey Bianchi MD Attending [...] Date S our [employer]ET[employer] MP SILVER: 9 [id number] 2022 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 0-12 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 00:00: 00 [...] ALLERGIE Class ity of S [facility] Social History Social Habit Start Date Stop Date Quantity Comments Source Gender identity 2022-09-04 Identifies as Jelena Seybold - 10:33:35 male gender External (finding) Sexual orientation 2022-09-04 Jelena Eatonold - 10:33:35 External Exposure to Not sure [facility] SARS-CoV-2 (event) [facility] History of tobacco Cigarette Smoker Jelena Patrice - use External History SDOH Jelena jerzy ld - Alcohol Frequency Externa l History SDOH Jelena Sejerzy ld - Alcohol Std Drinks [employer] History SDOH Jelena Gabi ld - Alcohol Binge External Alcohol intake 2023-03-11 2023-03-11 Current drinker Beth Ibrahim - 00:00:00 00:00:00 of alcohol External (finding) History of Social 2022-12-22 2022-12-22 Jelena Guevaratiffanyold - function 00:00:00 00:00:00 External Tobacco use and 2022-12-22 2022-12-22 Smokeless tobacco Ke sveta Guevaraybold - exposure 00:00:00 00:00:00 non-user External Alcohol Comment 2022-09-09 2022-09-09 rare Jelenalit henley - 00:00:00 00:00:00 External Tobacco Comment 2019-08-16 2019-08-16 Quit [facility] 00:00:00 00:00:00 smoking/vaping [facility] earlier this year Branch Sex Ass[birth year] At [birth year] F Jelena henley - 00:00:00 00:00:00 External Smoking Status Start Date Stop Date Source Occasional tobacco 2022-12-22 00:00:00 Jelena henley - smoker External Never smoked tobacco Jelena Eaton old - External Former smoker 2020-09-07 00:00:00 2020-09-07 [facility] 00:00:00 Medical Branch Medications Ordered Filled Start Stop Current Ordering Indication Dosage Frequency Signature Comments Components Source Medication Medication Date Date Medication? Clinician (SIG) Name Name Cyanocobala Yes Take by Reynold sey min 7-12 mouth Seybold (VITAMIN B 10:25: - 12 OR) 36 Externa l Metoclopram Yes 10mg Take 1 Ashlie ey jonathan HCl 7-12 tablet (10 Seybol d (Reglan) 10 10:25: mg total) - MG oral 36 by mouth 4 [employer] a Tablet times l daily Dicyclomine 0 Yes 20mg Take 1 Ashlie ey HCl 20 MG 7-12 tablet (20 Seyb old oral Tablet 10:25: mg total) - 36 by mouth Externa every 6 l (six) hours Aripiprazol 2022-0 Yes Abilify Reynold sey e (Abilify) 7-12 Seybold 10 MG oral 10:25: - Tablet 36 Externa l Trazodone 2022-0 Yes every 24 Ashlie ey HCl 100 MG 7-12 hours Seybold oral Tablet 10:25: - 36 Externa l Topiramate 0 Yes TAKE ONE Reynold sey 25 MG oral 7-06 (1) Seybold Tablet 00:00: TABLET(S) - 00 BY MOUTH Externa ONCE A DAY l FOR 3 DAYS , THEN ONE (1) TABLET EVERY 12 HOURS FOR 3 DAYS, THEN TWO (2) TABLETS EVERY 12 HOURS THEREAFTER . Cyanocobala Yes Take by Reynold sey min 6-21 mouth Seybold (VITAMIN B 11:04: - 12 OR) 18 Externa l Metoclopram 2022-0 Yes 10mg Take 1 Ashlie ey jonathan HCl 6-21 tablet (10 Seybol d (Reglan) 10 11:04: mg total) - MG oral 18 by mouth 4 [employer] a Tablet times l daily Dicyclomine Yes 20mg Take 1 Ashlie ey HCl 20 MG 6-21 tablet (20 Seyb old oral Tablet 11:04: mg total) - 18 by mouth Externa every 6 l (six) hours Aripiprazol 0 Yes Abilify Reynold sey e (Abilify) 6-21 Seybold 10 MG oral 11:04: - Tablet 18 Externa l Trazodone 2022-0 Yes every 24 Ashlie ey HCl 100 MG 6-21 hours Seybold oral Tablet 11:04: - 18 Externa l Potassium 2022-0 Yes [id number] 1{tbl} Take 1 Jelena Chloride ER 6-21 tablet by Sey bold 20 MEQ oral 00:00: mouth - Tab CR 00 daily Externa l Propranolol 2022-0 Yes [id number] 10mg Take 1 Jelena HCl 10 MG 6-21 tablet (10 Seyb old oral Tablet 00:00: mg total) - 00 by mouth 3 Externa times l daily Budesonide 2022-0 Yes [id number] Inhale 2 Jelena 90 MCG/ACT 6-21 inhalation Sey bold inhalation 00:00: s into the - AEROSOL 00 lungs Externa POWDER, daily l BREATH ACTIVATED hydroCHLORO 2022-0 Yes [id number] 12.5mg Take 1 Jelena thiazide 6-21 capsule Seybold 12.5 MG 00:00: (12.5 mg - oral 00 total) by Externa Capsule mouth l daily Potassium 2022-0 Yes [id number] 1{tbl} Take 1 Jelena Chloride ER 6-21 tablet by Sey bold 20 MEQ oral 00:00: mouth - Tab CR 00 daily Externa l Propranolol 2022-0 Yes [id number] 10mg Take 1 Jelena HCl 10 MG 6-21 tablet (10 Seyb old oral Tablet 00:00: mg total) - 00 by mouth 3 Externa times l daily Budesonide 2022-0 Yes [id number] Inhale 2 Jelena 90 MCG/ACT 6-21 inhalation Sey bold inhalation 00:00: s into the - AEROSOL 00 lungs Externa POWDER, daily l BREATH ACTIVATED hydroCHLORO 2022-0 Yes [id number] 12.5mg Take 1 Jelena thiazide 6-21 capsule Seybold 12.5 MG 00:00: (12.5 mg - oral 00 total) by Externa Capsule mouth l daily Meclizine 2022-0 Yes [id number] TAKE ONE Jelena HCl 25 MG 6-19 (1) Seybold oral Tablet 00:00: TABLET(S) - 00 BY MOUTH Externa THREE l TIMES A DAY NEEDED. Meclizine 2022-0 Yes [id number] TAKE ONE Jelena HCl 25 MG 6-19 (1) Seybold oral Tablet 00:00: TABLET(S) - 00 BY MOUTH Externa THREE l TIMES A DAY NEEDED. Gabapentin 2022-0 Yes [id number] 100mg Take 1 Jelena 100 MG oral 6-18 capsule Seybo ld Capsule 00:00: (100 mg - 00 total) by Externa mouth 3 l times daily Gabapentin 2022-0 2023- No [id number] 100mg Take 1 Jelena 100 MG oral 6-18 07-12 capsule Seyb old Capsule 00:00: 00:00 (100 mg - 00 :00 total) by Externa mouth 3 l times daily Losartan Yes [id number] 100mg Take 1 Ke lsey Potassium 6-05 tablet Seybold (COZAAR) 00:00: (100 mg - 100 MG oral 00 total) by Ext jonathan Tablet mouth l daily Losartan Yes [id number] 100mg Take 1 Ke lsey Potassium 6-05 tablet Seybold (COZAAR) 00:00: (100 mg - 100 MG oral 00 total) by Ext jonathan Tablet mouth l daily Metoclopram 0 Yes 10mg Take 1 Ashlie ey jonathan HCl 5-31 tablet (10 Seybol d (Reglan) 10 10:58: mg total) - MG oral 34 by mouth 4 [employer] a Tablet times l daily Dicyclomine Yes [...] po q 12 hrs, Meclizine 0 Yes [id number] TAKE ONE Jelena HCl 25 MG 5-22 (1) Seybold oral Tablet 00:00: TABLET(S) - 00 BY MOUTH Externa THREE l TIMES A DAY NEEDED. Meclizine 0 2022- No [id number] TAKE ONE Jelena HCl 25 MG 5-22 06-19 (1) Seybold oral Tablet 00:00: 00:00 TABLET(S) - 00 :00 BY MOUTH Externa THREE l TIMES A DAY NEEDED. Losartan Yes [id number] 1{tbl} Take 1 K elsey Potassium-H 5-15 tablet by Lit romano CTZ 50-12.5 00:00: mouth - MG oral 00 daily Externa Tablet l Gabapentin Yes [id number] 100mg Take 1 Jelena 100 MG oral 5-15 capsule Seybo ld Capsule 00:00: (100 mg - 00 total) by Externa mouth 3 l times daily Gabapentin 0 2022- No [id number] 100mg Take 1 Jelena 100 MG oral 5-15 06-16 capsule Seyb old Capsule 00:00: 00:00 (100 mg - 00 :00 total) by Externa mouth 3 l times daily Cholecalcif Yes TAKE ONE Ke lsey juan 5-06 (1) Seybold (Vitamin 00:00: CAPSULE(S) - D3) 1.25 MG 00 BY MOUTH Exte rna (84947 UT) TWICE A l oral WEEK. Capsule Cholecalcif Yes TAKE ONE Ke lsey juan 5-06 (1) Seybold (Vitamin 00:00: CAPSULE(S) - D3) 1.25 MG 00 BY MOUTH Exte rna (70922 UT) TWICE A l oral WEEK. Capsule Trazodone 2022- No [id number] 100mg Take 1 Jelena HCl 100 MG 5-01 05-01 tablet Seybol d oral Tablet 11:10: 00:00 (100 mg - 14 :00 total) by Externa mouth at l bedtime Cyanocobala Yes Take by Reynold guevaray min 5-01 mouth Seybold (VITAMIN B 09:56: - 12 OR) 28 Externa l Tramadol Yes [id number] 50mg Q.25D Take 1 K elsey HCl 5-01 tablet (50 Seybold (ULTRAM) 50 00:00: mg total) - MG oral 00 by mouth Externa Tablet every 6 l hours as needed for pain Tramadol Yes [id number] 50mg Q.25D Take 1 K elsey HCl 5-01 tablet (50 Seybold (ULTRAM) 50 00:00: mg total) - MG oral 00 by mouth Externa Tablet every 6 l hours as needed for pain Tramadol Yes [id number] 50mg Q.25D Take 1 K elsey HCl 5-01 tablet (50 Seybold (ULTRAM) 50 00:00: mg total) - MG oral 00 by mouth Externa Tablet every 6 l hours as needed for pain Tramadol 2022-0 Yes [id number] 50mg Q.25D Take 1 K elsey HCl 5-01 tablet (50 Seybold (ULTRAM) 50 00:00: mg total) - MG oral 00 by mouth Externa Tablet every 6 l hours as needed for pain hydrOXYzine 2022-0 Yes Jelena HCl 25 MG 4-26 Seybold oral Tablet 00:00: - 00 Externa l hydrOXYzine 3-0 Yes Jelena HCl 25 MG 4-26 Seybold oral Tablet 00:00: - 00 Externa l hydrOXYzine 2022-0 Yes Jelena HCl 25 MG 4-26 Seybold oral Tablet 00:00: - 00 Externa l hydrOXYzine 2022-0 Yes Jelena HCl 25 MG 4-26 Seybold oral Tablet 00:00: - 00 Externa l Trazodone 2022-0 Yes [id number] 100mg Take 1 K elsey HCl 100 MG 4-24 tablet Seybold oral Tablet 08:55: (100 mg - 22 total) by Externa mouth at l bedtime Cyanocobala 2022-0 Yes Take by Reynold sey min 4-24 mouth Seybold (VITAMIN B 08:55: - 12 OR) 22 Externa l Albuterol 2022-0 Yes [id number] 2{puff} Q.25D Inhale 2 Jelena HFA 108 (90 4-24 puffs into Se ybold Base) 00:00: the lungs - MCG/ACT IN 00 every 6 [employer] a AERS hours as l needed for wheezing or shortness of breath Meclizine 3-0 Yes [id number] TAKE ONE Jleena HCl 25 MG 4-24 (1) Seybold oral Tablet 00:00: TABLET(S) - 00 BY MOUTH Externa THREE l TIMES A DAY NEEDED. Albuterol 2022-0 Yes [id number] 2{puff} Q.25D Inhale 2 Jelena HFA 108 (90 4-24 puffs into Se ybold Base) 00:00: the lungs - MCG/ACT IN 00 every 6 [employer] a AERS hours as l needed for wheezing or shortness of breath Albuterol 2023-0 Yes [id number] 2{puff} Q.25D Inhale 2 Jelena HFA 108 (90 4-24 puffs into Se ybold Base) 00:00: the lungs - MCG/ACT IN 00 every 6 [employer] a AERS hours as l needed for wheezing or shortness of breath Albuterol 2023-0 Yes [id number] 2{puff} Q.25D Inhale 2 Jelena HFA 108 (90 4-24 puffs into Se ybold Base) 00:00: the lungs - MCG/ACT IN 00 every 6 [employer] a AERS hours as l needed for wheezing or shortness of breath Albuterol 2023-0 Yes [id number] 2{puff} Q.25D Inhale 2 Jelena HFA 108 (90 4-24 puffs into Se ybold Base) 00:00: the lungs - MCG/ACT IN 00 every 6 [employer] a AERS hours as l needed for wheezing or shortness of breath Cyclobenzap 2023-0 Yes 10mg Q.[id number] Take 1 Jelena rine HCl 10 4-22 [id number] tablet (10 Seybold MG oral 00:00: 3D mg total) - Tablet 00 by mouth Externa every 8 l hours as needed Cyclobenzap 2023-0 Yes 10mg Q.[id number] Take 1 Jelena rine HCl 10 4-22 [id number] tablet (10 Seybold MG oral 00:00: 3D mg total) - Tablet 00 by mouth Externa every 8 l hours as needed Cyclobenzap 2023-0 Yes 10mg Q.[id number] Take 1 Jelena rine HCl 10 4-22 [id number] tablet (10 Seybold MG oral 00:00: 3D mg total) - Tablet 00 by mouth Externa every 8 l hours as needed Cyclobenzap 2023-0 Yes 10mg Q.[id number] Take 1 Jelena rine HCl 10 4-22 [id number] tablet (10 Seybold MG oral 00:00: 3D mg total) - Tablet 00 by mouth Externa every 8 l hours as needed Cyclobenzap 2023-0 Yes 10mg Q.[id number] Take 1 Jelena rine HCl 10 4-22 [id number] tablet (10 Seybold MG oral 00:00: 3D mg total) - Tablet 00 by mouth Externa every 8 l hours as needed Gabapentin 2022-0 Yes [id number] 100mg Take 1 Jelena 100 MG oral 4-20 capsule Seybo ld Capsule 00:00: (100 mg - 00 total) by Externa mouth 3 l times daily Gabapentin 2022-0 Yes [id number] 100mg Take 1 Jelena 100 MG oral [...] Externa at bedtime l Trazodone 2022-0 Yes [id number] 100mg Take 1 K elsey HCl 100 MG 4-13 tablet Seybold oral Tablet 10:58: (100 mg - 09 total) by Externa mouth at l bedtime Cyanocobala 2022-0 Yes Take by Reynold sey min 4-13 mouth Seybold (VITAMIN B 10:58: - 12 OR) 09 Externa l Trazodone 2022-0 Yes [id number] 100mg Take 1 K elsey HCl 100 MG 4-10 tablet Seybold oral Tablet 11:00: (100 mg - 07 total) by Externa mouth at l bedtime Cyanocobala 2022-0 Yes Take by Reynold sey min 4-10 mouth Seybold (VITAMIN B 11:00: - 12 OR) 07 Externa l Propranolol 2023-0 Yes [id number] TAKE ONE Jelena HCl 10 MG 4-10 (1) Seybold oral Tablet 00:00: TABLET(S) - 00 BY MOUTH Externa THREE l TIMES A DAY. Propranolol 2023-0 Yes [id number] TAKE ONE Jelena HCl 10 MG 4-10 [...] Release daily as needed Propranolol 2023-0 Yes [id number] TAKE ONE Jelena HCl 10 MG 4-10 [...] Release daily as needed Propranolol 2023-0 Yes [id number] TAKE ONE Jelena HCl 10 MG 4-10 [...] daily as needed Propranolol 2023-0 2023- No [id number] TAKE ONE Jelena HCl 10 MG 4-10 06-21 (1) Seybold oral Tablet 00:00: 00:00 TABLET(S) - 00 :00 BY MOUTH Externa THREE l TIMES A DAY. Meloxicam 2023-0 Yes [id number] 15mg Take 1 Jelena 15 MG oral 4-06 tablet (15 Sey bold Tablet 00:00: mg total) - 00 by mouth Externa daily l Meloxicam 2023-0 Yes [id number] 15mg Take 1 Jelena 15 MG oral 4-06 tablet (15 Sey bold Tablet 00:00: mg total) - 00 by mouth Externa daily l Meloxicam 2023-0 Yes [id number] 15mg Take 1 Jelena 15 MG oral 4-06 tablet (15 Sey bold Tablet 00:00: mg total) - 00 by mouth Externa daily l Meloxicam 2023-0 Yes [id number] 15mg Take 1 Jelena 15 MG oral 4-06 tablet (15 Sey bold Tablet 00:00: mg total) - 00 by mouth Externa daily l Meloxicam 2023-0 Yes [id number] 15mg Take 1 Jelena 15 MG oral 4-06 tablet (15 Sey bold Tablet 00:00: mg total) - 00 by mouth Externa daily l Meloxicam 2023-0 Yes [id number] 15mg Take 1 Jelena 15 MG oral 4-06 tablet (15 Sey bold Tablet 00:00: mg total) - 00 by mouth Externa daily l Meloxicam 2023-0 Yes [id number] 15mg Take 1 Jelena 15 MG oral [...] Exter na mouth l every morning Duloxetine 2022-0 Yes 30mg Take 1 Kelse y HCl 30 MG 3-31 capsule Seybold oral Cap DR 00:00: (30 mg - Particles 00 total) by Exter na mouth l every morning Duloxetine 2022-0 Yes 30mg Take 1 Kelse y HCl 30 MG 3-31 capsule Seybold oral Cap [address] 00:00: (30 mg - Particles 00 total) by Exter na mouth l every morning Meclizine 2022-0 Yes [id number] TAKE ONE Jelena HCl 25 MG 3-24 (1) Seybold oral Tablet 00:00: TABLET(S) - 00 BY MOUTH Externa THREE l TIMES A DAY NEEDED. Meclizine 2022-0 Yes [id number] TAKE ONE Jelena HCl 25 MG 3-24 (1) Seybold oral Tablet 00:00: TABLET(S) - 00 BY MOUTH Externa THREE l TIMES A DAY NEEDED. Meclizine 2022-0 Yes [id number] TAKE ONE Jelena HCl 25 MG 3-24 (1) Seybold oral Tablet 00:00: TABLET(S) - 00 BY MOUTH Externa THREE l TIMES A DAY NEEDED. Losartan 2022-0 Yes [id number] 1{tbl} Take 1 K elsey Potassium-H 3-22 tablet by Sey bold CTZ 50-12.5 00:00: mouth - MG oral 00 daily Externa Tablet l Losartan 2022-0 Yes [id number] 1{tbl} Take 1 K elsey Potassium-H 3-22 tablet by Sey bold CTZ 50-12.5 00:00: mouth - MG oral 00 daily Externa Tablet l Losartan 2022-0 Yes [id number] 1{tbl} Take 1 K elsey Potassium-H 3-22 tablet by Sey bold CTZ 50-12.5 00:00: mouth - MG oral 00 daily Externa Tablet l Losartan 2022-0 Yes [id number] 1{tbl} Take 1 K elsey Potassium-H 3-22 tablet by Sey bold CTZ 50-12.5 00:00: mouth - MG oral 00 daily Externa Tablet l Propranolol 2022-0 2023- No [id number] TAKE ONE Jelena HCl 10 MG 3-10 04-10 (1) Seybold oral Tablet 00:00: 00:00 TABLET(S) - 00 :00 BY MOUTH Externa THREE l TIMES A DAY. Cholecalcif 2022-0 2022- No [id number] 26643I Take 1 Jelena juan 1.25 3-02 04-10 capsule Seybol d MG ([id number] 00:00: 00:00 (50,000 - UT) oral 00 :00 units Externa Capsule total) by l mouth twice a week for 8 doses Trazodone 2022-0 Yes [id number] 100mg Take 100 Jelena HCl 100 MG [...] A l DAY. hydrOXYzine 2022-0 Yes 50mg Q.[id number] Take 1 Jelena HCl 50 MG 2-13 [id number] tablet (50 Seybold oral Tablet 00:00: 3D mg total) - 00 by mouth Externa every 8 l hours as needed hydrOXYzine 2023-0 Yes 50mg Q.[id number] Take 1 Jelena HCl 50 MG 2-13 [id number] tablet (50 Seybold oral Tablet 00:00: 3D mg total) - 00 by mouth Externa every 8 l hours as needed hydrOXYzine 2023-0 Yes 50mg Q.[id number] Take 1 Jelena HCl 50 MG 2-13 [id number] tablet (50 Seybold oral Tablet 00:00: 3D mg total) - 00 by mouth Externa every 8 l hours as needed hydrOXYzine 2023-0 Yes 50mg Q.[id number] Take 1 Jelena HCl 50 MG 2-13 [id number] tablet (50 Seybold oral Tablet 00:00: 3D mg total) - 00 by mouth Externa every 8 l hours as needed hydrOXYzine 2022-0 Yes 50mg Q.[id number] Take 1 Jelena HCl 50 MG 2-13 [id number] tablet (50 Seybold oral Tablet 00:00: 3D mg total) - 00 by mouth Externa every 8 l hours as needed Losartan 202-0 Yes [id number] 1{tbl} Take 1 K elsey Potassium-H 2-10 tablet by Sey bold CTZ 50-12.5 00:00: mouth - MG oral 00 daily Externa Tablet l Meclizine 3-0 Yes [id number] 25mg Q.[id number] Take 1 Jelena HCl 25 MG 2-10 [id number] tablet (25 Seybold oral Tablet 00:00: 3D mg total) - 00 by mouth 3 Externa times l daily as needed Propranolol 2023-0 Yes [id number] 10mg Take 1 Jelena HCl 10 MG 2-10 tablet (10 Seyb old oral Tablet 00:00: mg total) - 00 by mouth 3 Externa times l daily Losartan 2023-0 Yes [id number] 1{tbl} Take 1 K elsey Potassium-H 2-10 tablet by Sey bold CTZ 50-12.5 00:00: mouth - MG oral 00 daily Externa Tablet l Meclizine Yes [id number] 25mg Q.[id number] Take 1 Jelena HCl 25 MG 2-10 [id number] tablet (25 Seybold oral Tablet 00:00: 3D mg total) - 00 by mouth 3 Externa times l daily as needed Propranolol Yes [id number] 10mg Take 1 Jelena HCl 10 MG 2-10 tablet (10 Seyb old oral Tablet 00:00: mg total) - 00 by mouth 3 Externa times l daily Doxycycline Yes [id number] 100mg Take 1 Jelena Hyclate 100 -31 tablet Seybol d MG oral 00:00: (100 mg - Tablet 00 total) by Externa mouth 2 l times daily Doxycycline 2022- No [id number] 100mg Take 1 Jelena Hyclate 100 -31 10-28 tablet Seybo ld MG oral 00:00: 00:00 (100 mg - Tablet 00 :00 total) by Externa mouth 2 l times daily Trulicity Yes [id number] .75mg Inject Jelena 0.75 1-28 0.75 mg Seybold MG/0.5ML 00:00: into the - subcutaneou 00 skin once Ext jonathan s Solution a week l Pen-injecto r Trulicity Yes [id number] .75mg Inject Jelena 0.75 1-28 0.75 mg Seybold MG/0.5ML 00:00: into the - subcutaneou 00 skin once Ext jonathan s Solution a week l Pen-injecto r Trulicity Yes [id number] .75mg Inject Jelena 0.75 1-28 0.75 mg Seybold MG/0.5ML 00:00: into the - subcutaneou 00 skin once Ext jonathan s Solution a week l Pen-injecto r Trulicity Yes [id number] .75mg Inject Jelena 0.75 1-28 0.75 mg Seybold MG/0.5ML 00:00: into the - subcutaneou 00 skin once Ext jonathan s Solution a week l Pen-injecto r Aripiprazol 2022- No Kelse y e 20 MG -25 -25 Seybold oral Tablet 11:11: 00:00 - 39 :00 Externa l Aripiprazol 3- No [id number] 10mg Take 10 mg Jelena e 10 MG -25 -25 by mouth 2 Seybo ld oral Tablet 11:11: 00:00 times - 26 :00 daily Externa l Trazodone 0 Yes [id number] 100mg Take 100 Jelena HCl 100 MG 1-25 mg by Seybold oral Tablet 10:31: mouth at - 22 bedtime Externa l Cyanocobala Yes Take by Reynold sey min 1-25 mouth Seybold (VITAMIN B 10:31: - 12 OR) 22 Externa l Trazodone Yes [id number] 100mg Take 100 Jelena HCl 100 MG 1-25 mg by Seybold oral Tablet 10:31: mouth at - 22 bedtime Externa l Cyanocobala Yes Take by Reynold sey min 1-25 mouth Seybold (VITAMIN B 10:31: - 12 OR) 22 Externa l hydroCHLORO Yes [id number] 12.5mg Take 1 Jelena thiazide 1-25 capsule Seybold 12.5 MG 00:00: (12.5 mg - oral 00 total) by Externa Capsule mouth l daily Ondansetron Yes [id number] 4mg Q.[id number] Take 1 Jelena (ZOFRAN) 4 1-25 [id number] tablet (4 Seybold MG oral 00:00: 3D mg total) - TABLET 00 by mouth Externa DISPERSIBLE every 8 l hours as needed for nausea Tirzepatide Yes [id number] 2.5mg Inject 0.5 Jelena (Mounjaro) 1-25 mL (2.5 mg Sey bold 2.5 00:00: total) - MG/0.5ML 00 into the Externa subcutaneou skin once l s Solution a week Pen-injecto r Celecoxib Yes [id number] 200mg Take 1 Jelena (CeleBREX) 1-25 capsule Seybol d 200 MG oral 00:00: (200 mg - Capsule 00 total) by Externa mouth 2 l times daily Gabapentin 2023-0 Yes [id number] 100mg Take 1 Jelena 100 MG oral 1-25 capsule Seybo ld Capsule 00:00: (100 mg - 00 total) by Externa mouth 3 l times daily Ondansetron 2023-0 Yes [id number] 4mg Q.[id number] Take 1 Jelena (ZOFRAN) 4 1-25 [id number] tablet (4 Seybold MG oral 00:00: 3D mg total) - TABLET 00 by mouth Externa DISPERSIBLE every 8 l hours as needed for nausea Celecoxib 3-0 Yes [id number] 200mg Take 1 Jelena (CeleBREX) 1-25 capsule Seybol d 200 MG oral 00:00: (200 mg - Capsule 00 total) by Externa mouth 2 l times daily Gabapentin 3-0 Yes [id number] 100mg Take 1 Jelena 100 MG oral 1-25 capsule Seybo ld Capsule 00:00: (100 mg - 00 total) by Externa mouth 3 l times daily Ondansetron 3-0 Yes [id number] 4mg Q.[id number] Take 1 Jelena (ZOFRAN) 4 1-25 [id number] tablet (4 Seybold MG oral 00:00: 3D mg total) - TABLET 00 by mouth Externa DISPERSIBLE every 8 l hours as needed for nausea Celecoxib 3-0 Yes [id number] 200mg Take 1 Jelena (CeleBREX) 1-25 capsule Seybol d 200 MG oral 00:00: (200 mg - Capsule 00 total) by Externa mouth 2 l times daily Gabapentin 3-0 Yes [id number] 100mg Take 1 Jelena 100 MG oral 1-25 capsule Seybo ld Capsule 00:00: (100 mg - 00 total) by Externa mouth 3 l times daily Ondansetron 2023-0 Yes [id number] 4mg Q.[id number] Take 1 Jelena (ZOFRAN) 4 1-25 [id number] tablet (4 Seybold MG oral 00:00: 3D mg total) - TABLET 00 by mouth Externa DISPERSIBLE every 8 l hours as needed for nausea Gabapentin 3-0 Yes [id number] 100mg Take 1 Jelena 100 MG oral 1-25 capsule Seybo ld Capsule 00:00: (100 mg - 00 total) by Externa mouth 3 l times daily Ondansetron 2022-0 Yes [id number] 4mg Q.[id number] Take 1 Jelena (ZOFRAN) 4 1-25 [id number] tablet (4 Seybold MG oral 00:00: 3D mg total) - TABLET 00 by mouth Externa DISPERSIBLE every 8 l hours as needed for nausea Gabapentin 2022-0 Yes [id number] 100mg Take 1 Jelena 100 MG oral 1-25 capsule Seybo ld Capsule 00:00: (100 mg - 00 total) by Externa mouth 3 l times daily Ondansetron 2022-0 Yes [id number] 4mg Q.[id number] Take 1 Jelena (ZOFRAN) 4 1-25 [id number] tablet (4 Seybold MG oral 00:00: 3D mg total) - TABLET 00 by mouth Externa DISPERSIBLE every 8 l hours as needed for nausea Ondansetron 2022-0 Yes [id number] 4mg Q.[id number] Take 1 Jelena (ZOFRAN) 4 1-25 [id number] tablet (4 Seybold MG oral 00:00: 3D mg total) - TABLET 00 by mouth Externa DISPERSIBLE every 8 l hours as needed for nausea Ondansetron 2022-0 Yes [id number] 4mg Q.[id number] Take 1 Jelena (ZOFRAN) 4 1-25 [id number] tablet (4 Seybold MG oral 00:00: 3D mg total) - TABLET 00 by mouth Externa DISPERSIBLE every 8 l hours as needed for nausea Ondansetron 2022-0 Yes [id number] 4mg Q.[id number] Take 1 Jelena (ZOFRAN) 4 1-25 [id number] tablet (4 Seybold MG oral 00:00: 3D mg total) - TABLET 00 by mouth Externa DISPERSIBLE every 8 l hours as needed for nausea Ondansetron 2022-0 Yes [id number] 4mg Q.[id number] Take 1 Jelena (ZOFRAN) 4 1-25 [id number] tablet (4 Seybold MG oral 00:00: 3D mg total) - TABLET 00 by mouth Externa DISPERSIBLE every 8 l hours as needed for nausea hydroCHLORO 3-0 2023- No [id number] 12.5mg Take 1 Jelena thiazide 1-25 02-10 [...] Implant 00 Externa l Docusate 2022-0 Yes [id number] 100mg Take 1 Ke lsey Sodium 1-13 capsule Seybold (Colace) 00:00: (100 mg - 100 MG oral 00 total) by Ext jonathan Capsule mouth l daily Ferrous 2022-0 Yes [id number] 325mg Take 1 Reynold sey Sulfate 1-13 tablet Seybold (Iron) 325 00:00: (325 mg - (65 Fe) MG 00 total) by Exte rna oral Tablet mouth l daily (with breakfast) Docusate 2022-0 Yes [id number] 100mg Take 1 Ke [place]sey Sodium 1-13 capsule Seybold (Colace) 00:00: (100 mg - 100 MG oral 00 total) by Ext jonathan Capsule mouth l daily Ferrous 2022-0 Yes [id number] 325mg Take 1 Reynold sey Sulfate 1-13 tablet Seybold (Iron) 325 00:00: (325 mg - (65 Fe) MG 00 total) by Exte rna oral Tablet mouth l daily (with breakfast) Docusate 0 Yes [id number] 100mg Take 1 Ke [place]sey Sodium 1-13 capsule Seybold (Colace) 00:00: (100 mg - 100 MG oral 00 total) by Ext jonathan Capsule mouth l daily Ferrous 0 Yes [id number] 325mg Take 1 Reynold sey Sulfate 1-13 tablet Seybold (Iron) 325 00:00: (325 mg - (65 Fe) MG 00 total) by Exte rna oral Tablet mouth l daily (with breakfast) Docusate 0 Yes [id number] 100mg Take 1 Ke [place] Sodium 1-13 capsule Seybold (Colace) 00:00: (100 mg - 100 MG oral 00 total) by Ext jonathan Capsule mouth l daily Ferrous 2022-0 Yes [id number] 325mg Take 1 Reynold sey Sulfate 1-13 tablet Seybold (Iron) 325 00:00: (325 mg - (65 Fe) MG 00 total) by Exte rna oral Tablet mouth l daily (with breakfast) Docusate 2022-0 Yes [id number] 100mg Take 1 Ke [facility]sey Sodium 1-13 capsule Seybold (Colace) 00:00: (100 mg - 100 MG oral 00 total) by Ext jonathan Capsule mouth l daily Ferrous 2022-0 Yes [id number] 325mg Take 1 Reynold sey Sulfate 1-13 tablet Seybold (Iron) 325 00:00: (325 mg - (65 Fe) MG 00 total) by Exte rna oral Tablet mouth l daily (with breakfast) Docusate 2022-0 Yes [id number] 100mg Take 1 Ke [place] Sodium 1-13 capsule Seybold (Colace) 00:00: (100 mg - 100 MG oral 00 total) by Ext jonathan Capsule mouth l daily Ferrous 2022-0 Yes [id number] 325mg Take 1 Reynold sey Sulfate 1-13 tablet Seybold (Iron) 325 00:00: (325 mg - (65 Fe) MG 00 total) by Exte rna oral Tablet mouth l daily (with breakfast) Docusate 0 Yes [id number] 100mg Take 1 Ke [place]sey Sodium 1-13 capsule Seybold (Colace) 00:00: (100 mg - 100 MG oral 00 total) by Ext jonathan Capsule mouth l daily Ferrous 0 Yes [id number] 325mg Take 1 Reynold sey Sulfate 1-13 tablet Seybold (Iron) 325 00:00: (325 mg - (65 Fe) MG 00 total) by Exte rna oral Tablet mouth l daily (with breakfast) Docusate 0 Yes [id number] 100mg Take 1 Ke [place] Sodium 1-13 capsule Seybold (Colace) 00:00: (100 mg - 100 MG oral 00 total) by Ext jonathan Capsule mouth l daily Ferrous 0 Yes [id number] 325mg Take 1 Reynold sey Sulfate 1-13 tablet Seybold (Iron) 325 00:00: (325 mg - (65 Fe) MG 00 total) by Exte rna oral Tablet mouth l daily (with breakfast) Docusate 0 Yes [id number] 100mg Take 1 Ke [place] Sodium 1-13 capsule Seybold (Colace) 00:00: (100 mg - 100 MG oral 00 total) by Ext jonathan Capsule mouth l daily Ferrous 0 Yes [id number] 325mg Take 1 Reynold sey Sulfate 1-13 tablet Seybold (Iron) 325 00:00: (325 mg - (65 Fe) MG 00 total) by Exte rna oral Tablet mouth l daily (with breakfast) Docusate 0 Yes [id number] 100mg Take 1 [place] Sodium 1-13 capsule Seybold (Colace) 00:00: (100 mg - 100 MG oral 00 total) by Ext jonathan Capsule mouth l daily Ferrous 0 Yes [id number] 325mg Take 1 Reynold sey Sulfate 1-13 tablet Seybold (Iron) 325 00:00: (325 mg - (65 Fe) MG 00 total) by Exte rna oral Tablet mouth l daily (with breakfast) Nitrofurant 0 2022- No [id number] 100mg Take 1 Jelena oin Monohyd 1-13 01-25 capsule Seyb old Macro 00:00: 00:00 (100 mg - (Macrobid) 00 :00 total) by Exte rna 100 MG oral mouth 2 l Capsule times daily Trazodone 0 Yes 100mg Take 100 Reynold sey HCl [...] 1-11 00:00: 00 LYRICA 150 2019-08 Yes [id number] Take 1 [facility] mg capsule 2-21 capsule by ity of 00:00: mouth 00 twice a Medical day for Branch neuropathi c pain as directed by physician. LYRICA 150 2019-08 Yes [id number] Take 1 [facility] mg capsule 2-21 capsule by ity of 00:00: mouth 00 twice a Medical day for Branch neuropathi c pain as directed by physician. LYRICA 150 2019-08 Yes [id number] Take 1 [facility] mg capsule 2-21 capsule by ity of 00:00: mouth [place] 00 twice a Medical day for Branch neuropathi c pain as directed by physician. LYRICA 150 2019-08 Yes [id number] Take 1 [facility] mg capsule 2-21 capsule by ity of 00:00: mouth [place] 00 twice a Medical day for Branch neuropathi c pain as directed by physician. LYRICA 150 2019-08 Yes [id number] Take 1 [facility] mg capsule 2-21 capsule by ity of 00:00: mouth [place] 00 twice a Medical day for Branch neuropathi c pain as directed by physician. LYRICA 150 2019-08 Yes [id number] Take 1 [facility] mg capsule 2-21 capsule by ity of 00:00: mouth [place] 00 twice a Medical day for Branch neuropathi c pain as directed by physician. LYRICA 150 2019-08 Yes [id number] Take 1 [facility] mg capsule 2-21 capsule [...] 5mg Take 5 mg [facility] e (ABILIFY 05-17- by mouth 2 it y of ORAL) 16:16: 00:00 (two) [place] 00 :00 times Medical daily. Branch aripiprazol 2020-0 2020- No 5mg Take 5 mg [facility] e (ABILIFY -17 -17 by mouth 2 it y of ORAL) 16:16: 00:00 (two) [place] 00 :00 times Medical daily. Branch ofloxacin 2020-0 Yes [id number] 5[drp] Place 5 [facility] 0.3 % otic 9-17 [id number] Drops in ity of drops 00:00: both ears [place] 00 3 (three) Medical times Branch daily. ofloxacin 2020-0 Yes [id number] 5[drp] Place 5 [facility] 0.3 % otic 9-17 [id number] Drops in ity of drops 00:00: both ears [place] 00 3 (three) Medical times Branch daily. ofloxacin 2020-0 Yes [id number] 5[drp] Place 5 [facility] 0.3 % otic 9-17 [id number] Drops in ity of drops 00:00: both ears [place] 00 3 (three) Medical times Branch daily. ofloxacin 2020-0 Yes [id number] 5[drp] Place 5 [facility] 0.3 % otic 9-17 [id number] Drops in ity of drops 00:00: both ears [place] 00 3 (three) Medical times Branch daily. ofloxacin 2020-0 Yes [id number] 5[drp] Place 5 [facility] 0.3 % otic 9-17 [id number] Drops in ity of drops 00:00: both ears [place] 00 3 (three) Medical times Branch daily. ofloxacin 2020-0 Yes [id number] 5[drp] Place 5 [facility] 0.3 % otic 9-17 [id number] Drops in ity of drops 00:00: both ears [place] 00 3 (three) Medical times Branch daily. ofloxacin 2020-0 Yes [id number] 5[drp] Place 5 [facility] 0.3 % otic 9-17 [id number] Drops in ity of drops 00:00: both ears [place] 00 3 (three) Medical times Branch daily. ofloxacin 2020-0 Yes [id number] 5[drp] Place 5 [facility] 0.3 % otic 9-17 [id number] Drops in ity of drops 00:00: both ears [place] 00 3 (three) Medical times Branch daily. ofloxacin 2020-0 Yes [id number] 5[drp] Place 5 [facility] 0.3 % otic 9-17 [id number] Drops in ity of drops 00:00: both ears [place] 00 3 (three) Medical times Branch daily. ofloxacin 2020-0 Yes [id number] 5[drp] Place 5 [facility] 0.3 % otic 9-17 [id number] Drops in ity of drops 00:00: both ears [place] 00 3 (three) Medical times Branch daily. ofloxacin 2020-0 Yes [id number] 5[drp] Place 5 [facility] 0.3 % otic 9-17 [id number] Drops in ity of drops 00:00: both ears [place] 00 3 (three) Medical times Branch daily. ofloxacin 2020-0 Yes [id number] 5[drp] Place 5 [facility] 0.3 % otic 9-17 [id number] Drops in ity of drops 00:00: both ears [place] 00 3 (three) Medical times Branch daily. ofloxacin 2020-0 Yes [id number] 5[drp] Place 5 [facility] 0.3 % otic 9-17 [id number] Drops in ity of drops 00:00: both ears [place] 00 3 (three) Medical times Branch daily. ofloxacin 2020-0 Yes [id number] 5[drp] Place 5 [facility] 0.3 % otic 9-17 [id number] Drops in ity of drops 00:00: both ears [place] 00 3 (three) Medical times Branch daily. ofloxacin 2020-0 Yes [id number] 5[drp] Place 5 [facility] 0.3 % otic 9-17 [id number] Drops in ity of drops 00:00: both ears [place] 00 3 (three) Medical times Branch daily. [...] 4647 1{tbl} Take 1 U nivers en-codeine -25 tablet by ity of (TYLENOL-CO 00:00: [...] Indication s: acute pain metoprolol 2020-0 Yes [id number] 50mg Take 1 Un nneka succinate 7-09 tablet by ity o f XL 50 mg 24 00:00: mouth [place] hr tablet 00 daily. Medical Branch hydroCHLORO 2019-0 Yes [id number] 25mg Take 1 [facility] thiazide 25 7-09 tablet by ity of mg tablet 00:00: mouth [place] 00 daily. Medical Branch baclofen 10 2019-0 Yes [id number] 10mg Take 1 [facility] mg tablet 7- [id number] tablet by ity of 00:00: mouth 3 [place] 00 (three) Medical times Branch daily as needed for Pain (scale 4-6). metoprolol 2020-0 Yes [id number] 50mg Take 1 Un nneka succinate 7-09 tablet by ity o f XL 50 mg 24 00:00: mouth [place] hr tablet 00 daily. Medical Branch hydroCHLORO 2020-0 Yes [id number] 25mg Take 1 [facility] thiazide 25 7-09 tablet by ity of mg tablet 00:00: mouth [place] 00 daily. Medical Branch baclofen 10 2019-0 Yes [id number] 10mg Take 1 [facility] mg tablet 7- [id number] tablet by ity of 00:00: mouth 3 [place] 00 (three) Medical times Branch daily as needed for Pain (scale 4-6). metoprolol 2020-0 Yes [id number] 50mg Take 1 Un nneka succinate 7-09 tablet by ity o f XL 50 mg 24 00:00: mouth [place] hr tablet 00 daily. Medical Branch hydroCHLORO 2020-0 Yes [id number] 25mg Take 1 [facility] thiazide 25 7-09 tablet by ity of mg tablet 00:00: mouth [place] 00 daily. Medical Branch baclofen 10 2020-0 Yes [id number] 10mg Take 1 [facility] mg tablet 03-08 [id number] tablet by ity of 00:00: mouth 3 [place] 00 (three) Medical times Branch daily as needed for Pain (scale 4-6). metoprolol 2020-0 Yes [id number] 50mg Take 1 Un nneka succinate 7-09 tablet by ity o f XL 50 mg 24 00:00: mouth [place] hr tablet 00 daily. Medical Branch hydroCHLORO 2020-0 Yes [id number] 25mg Take 1 [facility] thiazide 25 7-09 tablet by ity of mg tablet 00:00: mouth [place] 00 daily. Medical Branch baclofen 10 2020-0 Yes [id number] 10mg Take 1 [facility] mg tablet 03-08 [id number] tablet by ity of 00:00: mouth 3 [place] 00 (three) Medical times Branch daily as needed for Pain (scale 4-6). metoprolol 2020-0 Yes [id number] 50mg Take 1 Un nneka succinate 7-09 tablet by ity o f XL 50 mg 24 00:00: mouth [place] hr tablet 00 daily. Medical Branch hydroCHLORO 2020-0 Yes [id number] 25mg Take 1 [facility] thiazide 25 7-09 tablet by ity of mg tablet 00:00: mouth [place] 00 daily. Medical Branch baclofen 10 2020-0 Yes [id number] 10mg Take 1 [facility] mg tablet 03-08 [id number] tablet by ity of 00:00: mouth 3 [place] 00 (three) Medical times Branch daily as needed for Pain (scale 4-6). metoprolol 2020-0 Yes [id number] 50mg Take 1 Un nneka succinate 7-09 tablet by ity o f XL 50 mg 24 00:00: mouth [place] hr tablet 00 daily. Medical Branch hydroCHLORO 2020-0 Yes [id number] 25mg Take 1 [facility] thiazide 25 7-09 tablet by ity of mg tablet 00:00: mouth [place] 00 daily. Medical Branch baclofen 10 2020-0 Yes [id number] 10mg Take 1 [facility] mg tablet 7- [id number] tablet by ity of 00:00: mouth 3 [place] 00 (three) Medical times Branch daily as needed for Pain (scale 4-6). metoprolol 2020-0 Yes [id number] 50mg Take 1 Un nneka succinate 7-09 tablet by ity o f XL 50 mg 24 00:00: mouth [place] hr tablet 00 daily. Medical Branch hydroCHLORO 2020-0 Yes [id number] 25mg Take 1 [facility] thiazide 25 7-09 tablet by ity of mg tablet 00:00: mouth [place] 00 daily. Medical Branch baclofen 10 2020-0 Yes [id number] 10mg Take 1 [facility] mg tablet 03-08 [id number] tablet by ity of 00:00: mouth 3 [place] 00 (three) Medical times Branch daily as needed for Pain (scale 4-6). metoprolol 2020-0 Yes [id number] 50mg Take 1 Un nneka succinate 7-09 tablet by ity o f XL 50 mg 24 00:00: mouth [place] hr tablet 00 daily. Medical Branch hydroCHLORO 2020-0 Yes [id number] 25mg Take 1 [facility] thiazide 25 7-09 tablet by ity of mg tablet 00:00: mouth [place] 00 daily. Medical Branch baclofen 10 2019-0 Yes [id number] 10mg Take 1 [facility] mg tablet 03-08 [id number] tablet by ity of 00:00: mouth 3 [place] 00 (three) Medical times Branch daily as needed for Pain (scale 4-6). metoprolol 2020-0 Yes [id number] 50mg Take 1 Un nneka succinate 7-09 tablet by ity o f XL 50 mg 24 00:00: mouth [place] hr tablet 00 daily. Medical Branch hydroCHLORO 2020-0 Yes [id number] 25mg Take 1 [facility] thiazide 25 7-09 tablet by ity of mg tablet 00:00: mouth [place] 00 daily. Medical Branch baclofen 10 2019-0 Yes [id number] 10mg Take 1 [facility] mg tablet 03-08 [id number] tablet by ity of 00:00: mouth 3 [place] 00 (three) Medical times Branch daily as needed for Pain (scale 4-6). metoprolol 2020-0 Yes [id number] 50mg Take 1 Un nneka succinate 7-09 tablet by ity o f XL 50 mg 24 00:00: mouth [place] hr tablet 00 daily. Medical Branch hydroCHLORO 2020-0 Yes [id number] 25mg Take 1 [facility] thiazide 25 7-09 tablet by ity of mg tablet 00:00: mouth [place] 00 daily. Medical Branch baclofen 10 2020-0 Yes [id number] 10mg Take 1 [facility] mg tablet 03-08 [id number] tablet by ity of 00:00: mouth 3 [place] 00 (three) Medical times Branch daily as needed for Pain (scale 4-6). metoprolol 2020-0 Yes [id number] 50mg Take 1 Un nneka succinate 7-09 tablet by ity o f XL 50 mg 24 00:00: mouth [place] hr tablet 00 daily. Medical Branch hydroCHLORO 2020-0 Yes [id number] 25mg Take 1 [facility] thiazide 25 7-09 tablet by ity of mg tablet 00:00: mouth [place] 00 daily. Medical Branch baclofen 10 2020-0 Yes [id number] 10mg Take 1 [facility] mg tablet 7- [id number] tablet by ity of 00:00: mouth 3 [place] 00 (three) Medical times Branch daily as needed for Pain (scale 4-6). metoprolol 2020-0 Yes [id number] 50mg Take 1 Un nneka succinate 7-09 tablet by ity o f XL 50 mg 24 00:00: mouth [place] hr tablet 00 daily. Medical Branch hydroCHLORO 2020-0 Yes [id number] 25mg Take 1 [facility] thiazide 25 7-09 tablet by ity of mg tablet 00:00: mouth [place] 00 daily. Medical Branch baclofen 10 2020-0 Yes [id number] 10mg Take 1 [facility] mg tablet 7- [id number] tablet by ity of 00:00: mouth 3 [place] 00 (three) Medical times Branch daily as needed for Pain (scale 4-6). metoprolol 2020-0 Yes [id number] 50mg Take 1 Un nneka succinate 7-09 tablet by ity o f XL 50 mg 24 00:00: mouth [place] hr tablet 00 daily. Medical Branch hydroCHLORO 2020-0 Yes [id number] 25mg Take 1 [facility] thiazide 25 7-09 tablet by ity of mg tablet 00:00: mouth [place] 00 daily. Medical Branch baclofen 10 2020-0 Yes [id number] 10mg Take 1 [facility] mg tablet 7- [id number] tablet by ity of 00:00: mouth 3 [place] 00 (three) Medical times Branch daily as needed for Pain (scale 4-6). metoprolol 2020-0 Yes [id number] 50mg Take 1 Un nneka succinate 7-09 tablet by ity o f XL 50 mg 24 00:00: mouth [place] hr tablet 00 daily. Medical Branch hydroCHLORO 2020-0 Yes [id number] 25mg Take 1 [facility] thiazide 25 7-09 tablet by ity of mg tablet 00:00: mouth [place] 00 daily. Medical Branch baclofen 10 2020-0 Yes [id number] 10mg Take 1 [facility] mg tablet 03-08 [id number] tablet by ity of 00:00: mouth 3 [place] 00 (three) Medical times Branch daily as needed for Pain (scale 4-6). metoprolol 2020-0 Yes [id number] 50mg Take 1 Un nneka succinate 7-09 tablet by ity o f XL 50 mg 24 00:00: mouth [place] hr tablet 00 daily. Medical Branch hydroCHLORO 2020-0 Yes [id number] 25mg Take 1 [facility] thiazide 25 7-09 tablet by ity of mg tablet 00:00: mouth [place] 00 daily. Medical Branch baclofen 10 2020-0 Yes [id number] 10mg Take 1 [facility] mg tablet 03-08 [id number] tablet by ity of 00:00: mouth 3 [place] 00 (three) Medical times Branch daily as needed for Pain (scale 4-6). metoprolol 2020-0 Yes [id number] 50mg Take 1 Un nneka succinate 7-09 tablet by ity o f XL 50 mg 24 00:00: mouth [place] hr tablet 00 daily. Medical Branch hydroCHLORO 2020-0 Yes [id number] 25mg Take 1 [facility] thiazide 25 7-09 tablet by ity of mg tablet 00:00: mouth [place] 00 daily. Medical Branch baclofen 10 2020-0 Yes [id number] 10mg Take 1 [facility] mg tablet 03-08 [id number] tablet by ity of 00:00: mouth 3 [place] 00 (three) Medical times Branch daily as needed for Pain (scale 4-6). metoprolol 2020-0 Yes [id number] 50mg Take 1 Un nneka succinate 7-09 tablet by ity o f XL 50 mg 24 00:00: mouth [place] hr tablet 00 daily. Medical Branch hydroCHLORO 2020-0 Yes [id number] 25mg Take 1 [facility] thiazide 25 7-09 tablet by ity of mg tablet 00:00: mouth [place] 00 daily. Medical Branch baclofen 10 2020-0 Yes [id number] 10mg Take 1 [facility] mg tablet 7- [id number] tablet by ity of 00:00: mouth 3 [place] 00 (three) Medical times Branch daily as needed for Pain (scale 4-6). metoprolol 2020-0 Yes [id number] 50mg Take 1 Un nneka succinate 7-09 tablet by ity o f XL 50 mg 24 00:00: mouth [place] hr tablet 00 daily. Medical Branch hydroCHLORO 2020-0 Yes [id number] 25mg Take 1 [facility] thiazide 25 7-09 tablet by ity of mg tablet 00:00: mouth [place] 00 daily. Medical Branch baclofen 10 2020-0 Yes [id number] 10mg Take 1 [facility] mg tablet 7- [id number] tablet by ity of 00:00: mouth 3 [place] 00 (three) Medical times Branch daily as needed for Pain (scale 4-6). metoprolol 2020-0 Yes [id number] 50mg Take 1 Un nneka succinate 7-09 tablet by ity o f XL 50 mg 24 00:00: mouth [place] hr tablet 00 daily. Medical Branch hydroCHLORO 2020-0 Yes [id number] 25mg Take 1 [facility] thiazide 25 7-09 tablet by ity of mg tablet 00:00: mouth [place] 00 daily. Medical Branch baclofen 10 2020-0 Yes [id number] 10mg Take 1 [facility] mg tablet 03-08 [id number] tablet by ity of 00:00: mouth 3 [place] 00 (three) Medical times Branch daily as needed for Pain (scale 4-6). metoprolol 2020-0 Yes [id number] 50mg Take 1 Un nneka succinate 7-09 tablet by ity o f XL 50 mg 24 00:00: mouth [place] hr tablet 00 daily. Medical Branch hydroCHLORO 2020-0 Yes [id number] 25mg Take 1 [facility] thiazide 25 7-09 tablet by ity of mg tablet 00:00: mouth [place] 00 daily. Medical Branch baclofen 10 2020-0 Yes [id number] 10mg Take 1 [facility] mg tablet 03-08 [id number] tablet by ity of 00:00: mouth 3 [place] 00 (three) Medical times Branch daily as needed for Pain (scale 4-6). metoprolol 2020-0 Yes [id number] 50mg Take 1 Un nneka succinate 7-09 tablet by ity o f XL 50 mg 24 00:00: mouth [place] hr tablet 00 daily. Medical Branch hydroCHLORO 2020-0 Yes [id number] 25mg Take 1 [facility] thiazide 25 7-09 tablet by ity of mg tablet 00:00: mouth [place] 00 daily. Medical Branch baclofen 10 2020-0 Yes [id number] 10mg Take 1 [facility] mg tablet 7- [id number] tablet by ity of 00:00: mouth 3 [place] 00 (three) Medical times Branch daily as needed for Pain (scale 4-6). metoprolol 2020-0 Yes [id number] 50mg Take 1 Un nneka succinate 7-09 tablet by ity o f XL 50 mg 24 00:00: mouth [place] hr tablet 00 daily. Medical Branch hydroCHLORO 2020-0 Yes [id number] 25mg Take 1 [facility] thiazide 25 7-09 tablet by ity of mg tablet 00:00: mouth [place] 00 daily. Medical Branch baclofen 10 2020-0 Yes [id number] 10mg Take 1 [facility] mg tablet 7- [id number] tablet by ity of 00:00: mouth 3 [place] 00 (three) Medical times Branch daily as needed for Pain (scale 4-6). metoprolol 2020-0 Yes [id number] 50mg Take 1 Un nneka succinate 7-09 tablet by ity o f XL 50 mg 24 00:00: mouth [place] hr tablet 00 daily. Medical Branch hydroCHLORO 2020-0 Yes [id number] 25mg Take 1 [facility] thiazide 25 7-09 tablet by ity of mg tablet 00:00: mouth [place] 00 daily. Medical Branch baclofen 10 2020-0 Yes [id number] 10mg Take 1 [facility] mg tablet 03-08 [id number] tablet by ity of 00:00: mouth 3 [place] 00 (three) Medical times Branch daily as needed for Pain (scale 4-6). metoprolol 2020-0 Yes [id number] 50mg Take 1 Un nneka succinate 7-09 tablet by ity o f XL 50 mg 24 00:00: mouth [place] hr tablet 00 daily. Medical Branch hydroCHLORO 2020-0 Yes [id number] 25mg Take 1 [facility] thiazide 25 7-09 tablet by ity of mg tablet 00:00: mouth [place] 00 daily. Medical Branch baclofen 10 2020-0 Yes [id number] 10mg Take 1 [facility] mg tablet 7- [id number] tablet by ity of 00:00: mouth 3 [place] 00 (three) Medical times Branch daily as needed for Pain (scale 4-6). metoprolol 2020-0 Yes [id number] 50mg Take 1 Un nneka succinate 7-09 tablet by ity o f XL 50 mg 24 00:00: mouth [place] hr tablet 00 daily. Medical Branch hydroCHLORO 2020-0 Yes [id number] 25mg Take 1 [facility] thiazide 25 7-09 tablet by ity of mg tablet 00:00: mouth [place] 00 daily. Medical Branch baclofen 10 2020-0 Yes [id number] 10mg Take 1 [facility] mg tablet 03-08 [id number] tablet by ity of 00:00: mouth 3 [place] 00 (three) Medical times Branch daily as needed for Pain (scale 4-6). DULOXETINE 2020-0 Yes 60mg Take 60 mg U nivers HCL 2-25 by mouth 3 ity of (CYMBALTA 14:58: (three) [place] ORAL) 32 times Medical daily. Branch VITAMIN B 2020-0 Yes Take by Unive rs COMPLEX 2-25 mouth. ity of ORAL 14:58: [place] [address] Medical Branch traZODONE 2020-0 Yes 100mg Take 100 [facility] vers 100 mg 2-25 mg by ity of tablet 14:58: mouth at [place] [address] bedtime. Medical Branch benztropine 2020-0 Yes 1mg Take 1 mg U nivers 1 mg tablet 2-25 by mouth ity of 14:58: daily. [address] Branch DULOXETINE 2020-0 Yes 60mg Take 60 mg U nivers HCL 2-25 by mouth 3 ity of (CYMBALTA 14:58: (three) [place] ORAL) 32 times Medical daily. Branch VITAMIN B 2020-0 Yes Take by Unive rs COMPLEX 2-25 mouth. ity of ORAL 14:58: [place] [address] Medical Branch traZODONE 2020-0 Yes 100mg Take 100 [facility] vers 100 mg 2-25 mg by ity of tablet 14:58: mouth at [place] [address] bedtime. Medical Branch benztropine 2020-0 Yes 1mg Take 1 mg U nivers 1 mg tablet 2-25 by mouth ity of 14:58: daily. [address] Branch DULOXETINE 2020-0 Yes 60mg Take 60 mg U nivers HCL 2-25 by mouth 3 ity of (CYMBALTA 14:58: (three) [place] ORAL) 32 times Medical daily. Branch VITAMIN B 2020-0 Yes Take by Unive rs COMPLEX 2-25 mouth. ity of ORAL 14:58: [place] [address] Medical Branch traZODONE 2020-0 Yes 100mg Take 100 [facility] vers 100 mg 2-25 mg by ity of tablet 14:58: mouth at [place] [address] bedtime. Medical Branch benztropine 2020-0 Yes 1mg Take 1 mg U nivers 1 mg tablet 2-25 by mouth ity of 14:58: daily. [place] [address] Medical Branch DULOXETINE 2020-0 Yes 60mg Take 60 mg U nivers HCL 2-25 by mouth 3 ity of (CYMBALTA 14:58: (three) [place] ORAL) 32 times Medical daily. Branch VITAMIN B 2020-0 Yes Take by Unive rs COMPLEX 2-25 mouth. ity of ORAL 14:58: [place] [address] Medical Branch traZODONE 2020-0 Yes 100mg Take 100 [facility] vers 100 mg 2-25 mg by ity of tablet 14:58: mouth at [place] [address] bedtime. Medical Branch benztropine 2020-0 Yes 1mg Take 1 mg U nivers 1 mg tablet 2-25 by mouth ity of 14:58: daily. [place] [address] Medical Branch DULOXETINE 2020-0 Yes 60mg Take 60 mg U nivers HCL 2-25 by mouth 3 ity of (CYMBALTA 14:58: (three) [place] ORAL) 32 times Medical daily. Branch VITAMIN B 2020-0 Yes Take by Unive rs COMPLEX 2-25 mouth. ity of ORAL 14:58: [place] [address] Medical Branch traZODONE 2020-0 Yes 100mg Take 100 [facility] vers 100 mg 2-25 mg by ity of tablet 14:58: mouth at [place] [address] bedtime. Medical Branch benztropine 2020-0 Yes 1mg Take 1 mg U nivers 1 mg tablet 2-25 by mouth ity of 14:58: daily. [place] [address] Medical Branch DULOXETINE 2020-0 Yes 60mg Take 60 mg U nivers HCL 2-25 by mouth 3 ity of (CYMBALTA 14:58: (three) [place] ORAL) 32 times Medical daily. Branch VITAMIN B 2020-0 Yes Take by Unive rs COMPLEX 2-25 mouth. ity of ORAL 14:58: [place] [address] Medical Branch traZODONE 2020-0 Yes 100mg Take 100 [facility] vers 100 mg 2-25 mg by ity of tablet 14:58: mouth at [place] [address] bedtime. Medical Branch benztropine 2020-0 Yes 1mg Take 1 mg U nivers 1 mg tablet 2-25 by mouth ity of 14:58: daily. [place] [address] Medical Branch DULOXETINE 2020-0 Yes 60mg Take 60 mg U nivers HCL 2-25 by mouth 3 ity of (CYMBALTA 14:58: (three) [place] ORAL) 32 times Medical daily. Branch VITAMIN B 2020-0 Yes Take by Unive rs COMPLEX 2-25 mouth. ity of ORAL 14:58: [place] [address] Medical Branch traZODONE 2020-0 Yes 100mg Take 100 [facility] vers 100 mg 2-25 mg by ity of tablet 14:58: mouth at [place] [address] bedtime. Medical Branch benztropine 2020-0 Yes 1mg Take 1 mg U nivers 1 mg tablet 2-25 by mouth ity of 14:58: daily. [place] [address] Medical Branch DULOXETINE 2020-0 Yes 60mg Take 60 mg U nivers HCL 2-25 by mouth 3 ity of (CYMBALTA 14:58: (three) [place] ORAL) 32 times Medical daily. Branch VITAMIN B 2020-0 Yes Take by Unive rs COMPLEX 2-25 mouth. ity of ORAL 14:58: [place] [address] Medical Branch traZODONE 2020-0 Yes 100mg Take 100 [facility] vers 100 mg 2-25 mg by ity of tablet 14:58: mouth at [place] [address] bedtime. Medical Branch benztropine 2020-0 Yes 1mg Take 1 mg U nivers 1 mg tablet 2-25 by mouth ity of 14:58: daily. [place] [address] Medical Branch DULOXETINE 2020-0 Yes 60mg Take 60 mg U nivers HCL 2-25 by mouth 3 ity of (CYMBALTA 14:58: (three) [place] ORAL) 32 times Medical daily. Branch VITAMIN B 2020-0 Yes Take by Unive rs COMPLEX 2-25 mouth. ity of ORAL 14:58: [place] [address] [facility] traZODONE 2020-0 Yes 100mg Take 100 Uni vers 100 mg 2-25 mg by ity of tablet 14:58: mouth at [place] [address] bedtime. Medical Branch benztropine 2020-0 Yes 1mg Take 1 mg U nivers 1 mg tablet 2-25 by mouth ity of 14:58: daily. [place] [address] [facility] DULOXETINE 2020-0 Yes 60mg Take 60 mg U nivers HCL 2-25 by mouth 3 ity of (CYMBALTA 14:58: (three) [place] ORAL) 32 times Medical daily. Branch VITAMIN B 2020-0 Yes Take by Unive rs COMPLEX 2-25 mouth. ity of ORAL 14:58: [place] [address] [facility] traZODONE 2020-0 Yes 100mg Take 100 Uni vers 100 mg 2-25 mg by ity of tablet 14:58: mouth at [place] [address] bedtime. Medical Branch benztropine 2020-0 Yes 1mg Take 1 mg U nivers 1 mg tablet 2-25 by mouth ity of 14:58: daily. [place] [address] [facility] DULOXETINE 2020-0 Yes 60mg Take 60 mg U nivers HCL 2-25 by mouth 3 ity of (CYMBALTA 14:58: (three) [place] ORAL) 32 times Medical daily. Branch VITAMIN B 2020-0 Yes Take by Unive rs COMPLEX 2-25 mouth. ity of ORAL 14:58: [place] [address] [facility] traZODONE 2020-0 Yes 100mg Take 100 Uni vers 100 mg 2-25 mg by ity of tablet 14:58: mouth at [place] [address] bedtime. Medical Branch benztropine 2020-0 Yes 1mg Take 1 mg U nivers 1 mg tablet 2-25 by mouth ity of 14:58: daily. [place] [address] [facility] DULOXETINE 2020-0 Yes 60mg Take 60 mg U nivers HCL 2-25 by mouth 3 ity of (CYMBALTA 14:58: (three) [place] ORAL) 32 times Medical daily. Branch VITAMIN B 2020-0 Yes Take by Unive rs COMPLEX 2-25 mouth. ity of ORAL 14:58: [place] [address] [facility] traZODONE 2020-0 Yes 100mg Take 100 Uni vers 100 mg 2-25 mg by ity of tablet 14:58: mouth at [place] [address] bedtime. Medical Branch benztropine 2020-0 Yes 1mg Take 1 mg U nivers 1 mg tablet 2-25 by mouth ity of 14:58: daily. [place] [address] [facility] DULOXETINE 2020-0 Yes 60mg Take 60 mg U nivers HCL 2-25 by mouth 3 ity of (CYMBALTA 14:58: (three) [place] ORAL) 32 times Medical daily. Branch VITAMIN B 2020-0 Yes Take by Unive rs COMPLEX 2-25 mouth. ity of ORAL 14:58: [place] [address] [facility] traZODONE 2020-0 Yes 100mg Take 100 Uni vers 100 mg 2-25 mg by ity of tablet 14:58: mouth at [place] [address] bedtime. Medical Branch benztropine 2020-0 Yes 1mg Take 1 mg U nivers 1 mg tablet 2-25 by mouth ity of 14:58: daily. [place] [address] [facility] DULOXETINE 2020-0 Yes 60mg Take 60 mg U nivers HCL 2-25 by mouth 3 ity of (CYMBALTA 14:58: (three) [place] ORAL) 32 times Medical daily. Branch VITAMIN B 2020-0 Yes Take by Unive rs COMPLEX 2-25 mouth. ity of ORAL 14:58: [place] [address] [facility] traZODONE 2020-0 Yes 100mg Take 100 Uni vers 100 mg 2-25 mg by ity of tablet 14:58: mouth at [place] [address] bedtime. Medical Branch benztropine 2020-0 Yes 1mg Take 1 mg U nivers 1 mg tablet 2-25 by mouth ity of 14:58: daily. [place] [address] [facility] DULOXETINE 2020-0 Yes 60mg Take 60 mg U nivers HCL 2-25 by mouth 3 ity of (CYMBALTA 14:58: (three) [place] ORAL) 32 times Medical daily. Branch VITAMIN B 2020-0 Yes Take by Unive rs COMPLEX 2-25 mouth. ity of ORAL 14:58: [place] [address] [facility] traZODONE 2020-0 Yes 100mg Take 100 Uni vers 100 mg 2-25 mg by ity of tablet 14:58: mouth at [place] [address] bedtime. Medical Branch benztropine 2020-0 Yes 1mg Take 1 mg U nivers 1 mg tablet 2-25 by mouth ity of 14:58: daily. [place] [address] [facility] DULOXETINE 2020-0 Yes 60mg Take 60 mg U nivers HCL 2-25 by mouth 3 ity of (CYMBALTA 14:58: (three) [place] ORAL) 32 times Medical daily. Branch VITAMIN B 2020-0 Yes Take by Unive rs COMPLEX 2-25 mouth. ity of ORAL 14:58: [place] [address] [facility] traZODONE 2020-0 Yes 100mg Take 100 Uni vers 100 mg 2-25 mg by ity of tablet 14:58: mouth at [place] [address] bedtime. Medical Branch benztropine 2020-0 Yes 1mg Take 1 mg U nivers 1 mg tablet 2-25 by mouth ity of 14:58: daily. [place] [address] [facility] DULOXETINE 2020-0 Yes 60mg Take 60 mg U nivers HCL 2-25 by mouth 3 ity of (CYMBALTA 14:58: (three) [place] ORAL) 32 times Medical daily. Branch VITAMIN B 2020-0 Yes Take by Unive rs COMPLEX 2-25 mouth. ity of ORAL 14:58: [address] Branch traZODONE 2020-0 Yes 100mg Take 100 Uni vers 100 mg 2-25 mg by ity of tablet 14:58: mouth at [place] [address] bedtime. Medical Branch benztropine 2020-0 Yes 1mg Take 1 mg U nivers 1 mg tablet 2-25 by mouth ity of 14:58: daily. [place] [address] [facility] VITAMIN B 2020-0 Yes Take by Unive rs COMPLEX 2-25 mouth. ity of ORAL 14:58: [address] Branch traZODONE 2020-0 Yes 100mg Take 100 Uni vers 100 mg 2-25 mg by ity of tablet 14:58: mouth at [place] [address] bedtime. Medical Branch benztropine 2020-0 Yes 1mg Take 1 mg U nivers 1 mg tablet 2-25 by mouth ity of 14:58: daily. [address] VITAMIN B 2020-0 Yes Take by Unive rs COMPLEX 2-25 mouth. ity of ORAL 14:58: [address] Branch traZODONE 2020-0 Yes 100mg Take 100 Uni vers 100 mg 2-25 mg by ity of tablet 14:58: mouth at [place] [address] bedtime. Medical Branch benztropine 2020-0 Yes 1mg Take 1 mg U nivers 1 mg tablet 2-25 by mouth ity of 14:58: daily. [address] VITAMIN B 2020-0 Yes Take by Unive rs COMPLEX 2-25 mouth. ity of ORAL 14:58: [address] traZODONE 2020-0 Yes 100mg Take 100 Uni vers 100 mg 2-25 mg by ity of tablet 14:58: mouth at [place] [address] bedtime. Medical Branch benztropine 2020-0 Yes 1mg Take 1 mg U nivers 1 mg tablet 2-25 by mouth ity of 14:58: daily. [address] VITAMIN B 2020-0 Yes Take by Unive rs COMPLEX 2-25 mouth. ity of ORAL 14:58: [address] traZODONE 2020-0 Yes 100mg Take 100 Uni vers 100 mg 2-25 mg by ity of tablet 14:58: mouth at [place] [address] bedtime. Medical Branch benztropine 2020-0 Yes 1mg Take 1 mg U nivers 1 mg tablet 2-25 by mouth ity of 14:58: daily. [address] VITAMIN B 2020-0 Yes Take by Unive rs COMPLEX 2-25 mouth. ity of ORAL 14:58: [address] traZODONE 2020-0 Yes 100mg Take 100 Uni vers 100 mg 2-25 mg by ity of tablet 14:58: mouth at [place] [address] bedtime. Medical Branch benztropine 2020-0 Yes 1mg Take 1 mg U nivers 1 mg tablet 2-25 by mouth ity of 14:58: daily. [address] VITAMIN B 2020-0 Yes Take by Unive rs COMPLEX 2-25 mouth. ity of ORAL 14:58: [address] traZODONE 2020-0 Yes 100mg Take 100 Uni vers 100 mg 2-25 mg by ity of tablet 14:58: mouth at [place] [address] bedtime. Medical Branch benztropine 2020-0 Yes 1mg Take 1 mg U nivers 1 mg tablet 2-25 by mouth ity of 14:58: daily. [address] VITAMIN B 2020-0 Yes Take by Unive rs COMPLEX 2-25 mouth. ity of ORAL 14:58: [address] traZODONE 2020-0 Yes 100mg Take 100 Uni vers 100 mg 2-25 mg by ity of tablet 14:58: mouth at [place] [address] bedtime. Medical Branch benztropine 2020-0 Yes 1mg Take 1 mg U nivers 1 mg tablet 2-25 by mouth ity of 14:58: daily. [address] VITAMIN B 2020-0 Yes Take by Unive rs COMPLEX 2-25 mouth. ity of ORAL 14:58: [address] traZODONE 2020-0 Yes 100mg Take 100 Uni vers 100 mg 2-25 mg by ity of tablet 14:58: mouth at [place] [address] bedtime. Medical Branch benztropine 2020-0 Yes 1mg Take 1 mg U nivers 1 mg tablet 2-25 by mouth ity of 14:58: daily. [address] VITAMIN B 2020-0 Yes Take by Unive rs COMPLEX 2-25 mouth. ity of ORAL 14:58: [address] traZODONE 2020-0 Yes 100mg Take 100 Uni vers 100 mg 2-25 mg by ity of tablet 14:58: mouth at [place] [address] bedtime. Medical Branch benztropine 2020-0 Yes 1mg Take 1 mg U nivers 1 mg tablet 2-25 by mouth ity of 14:58: daily. [address] VITAMIN B 2020-0 Yes Take by Unive rs COMPLEX 2-25 mouth. ity of ORAL 14:58: [address] traZODONE 2020-0 Yes 100mg Take 100 Uni vers 100 mg 2-25 mg by ity of tablet 14:58: mouth at [place] [address] bedtime. Medical Branch benztropine 2020-0 Yes 1mg Take 1 mg U nivers 1 mg tablet 2-25 by mouth ity of 14:58: daily. [address] VITAMIN B 2020-0 Yes Take by Unive rs COMPLEX 2-25 mouth. ity of ORAL 14:58: [address] traZODONE 2020-0 Yes 100mg Take 100 Uni vers 100 mg 2-25 mg by ity of tablet 14:58: mouth at [place] [address] bedtime. Medical Branch benztropine 2020-0 Yes 1mg Take 1 mg U nivers 1 mg tablet 2-25 by mouth ity of 14:58: daily. [address] VITAMIN B 2020-0 Yes Take by Unive rs COMPLEX 2-25 mouth. ity of ORAL 14:58: [address] traZODONE 2020-0 Yes 100mg Take 100 Uni vers 100 mg 2-25 mg by ity of tablet 14:58: mouth at [place] [address] bedtime. Medical Branch benztropine 2020-0 Yes 1mg Take 1 mg U nivers 1 mg tablet 2-25 by mouth ity of 14:58: daily. [address] VITAMIN B 2020-0 Yes Take by Unive rs COMPLEX 2-25 mouth. ity of ORAL 14:58: [address] traZODONE 2020-0 Yes 100mg Take 100 Uni vers 100 mg 2-25 mg by ity of tablet 14:58: mouth at [place] [address] bedtime. Medical Branch benztropine 2020-0 Yes 1mg Take 1 mg U nivers 1 mg tablet 2-25 by mouth ity of 14:58: daily. [address] VITAMIN B 2020-0 Yes Take by Unive rs COMPLEX 2-25 mouth. ity of ORAL 14:58: [address] traZODONE 2020-0 Yes 100mg Take 100 Uni vers 100 mg 2-25 mg by ity of tablet 14:58: mouth at [place] [address] bedtime. Medical Branch benztropine 2020-0 Yes 1mg Take 1 mg U nivers 1 mg tablet 2-25 by mouth ity of 14:58: daily. [place] [address] [facility] Branch VITAMIN B 2020-0 Yes Take by Unive rs COMPLEX 2-25 mouth. ity of ORAL 14:58: [place] [address] [facility] traZODONE 2020-0 Yes 100mg Take 100 Uni vers 100 mg 2-25 mg by ity of tablet 14:58: mouth at [place] [address] bedtime. Medical Branch benztropine 2020-0 Yes 1mg Take 1 mg U nivers 1 mg tablet 2-25 by mouth ity of 14:58: daily. [place] [address] [facility] Branch aripiprazol 2020-0 Yes 5mg Take [...] 2-24 by mouth ity of 17:16: daily. [place] 05 [facility] ARIPiprazol 2020-0 Yes 10mg [...] 2-24 by mouth ity of 17:16: daily. [place] [facility] ARIPiprazol 2020-0 Yes 10mg Take 10 mg Univers e 10 mg 2-24 by mouth 2 ity of tablet 17:16: (two) [place] 05 times Medical daily. Branch DULOXETINE 2020-0 Yes 60mg Take 60 mg U nivers HCL 2-24 by mouth 3 ity of (CYMBALTA 17:15: (three) [place] ORAL) 45 times Medical daily. Branch VITAMIN B 2020-0 Yes Take by Unive rs COMPLEX 2-24 mouth. ity of ORAL 17:15: [place] [address] [facility] Branch traZODONE 2020-0 Yes 100mg Take 100 Uni vers 100 mg 2-24 mg by ity of tablet 17:15: mouth at [place] [address] bedtime. Medical Branch DULOXETINE 2020-0 Yes 60mg Take 60 mg U nivers HCL 2-24 by mouth 3 ity of (CYMBALTA 17:15: (three) [place] ORAL) 45 times Medical daily. Branch VITAMIN B 2020-0 Yes Take by Unive rs COMPLEX 2-24 mouth. ity of ORAL 17:15: [place] 45 [facility] traZODONE 2020-0 Yes 100mg Take 100 Uni vers 100 mg 2-24 mg by ity of tablet 17:15: mouth at [place] [address] bedtime. Medical Branch DULOXETINE 2020-0 Yes 60mg Take 60 mg U nivers HCL 2-24 by mouth 3 ity of (CYMBALTA 17:15: (three) [place] ORAL) 45 times Medical daily. Branch VITAMIN B 2020-0 Yes Take by Unive rs COMPLEX 2-24 mouth. ity of ORAL 17:15: [place] 45 [facility] traZODONE 2019- Yes 100mg Take 100 Uni vers 100 mg 2-24 mg by ity of tablet 17:15: mouth at [place] 45 bedtime. [facility] Branch OLANZapine 2020- No 20mg Take 20 mg Univers 20 mg -24 10-24 by mouth ity of tablet 17:15: 00:00 at [place] 35 :00 bedtime. Medical Branch OLANZapine 2020- No 20mg Take 20 mg [facility] 20 mg 10-24-24 by mouth ity of tablet 17:15: 00:00 at [place] 35 :00 bedtime. Medical Branch OLANZapine 2020- No 20mg Take 20 mg [facility] 20 mg -24 10-24 by mouth ity of tablet 17:15: 00:00 at [place] 35 :00 bedtime. Medical Branch OLANZapine 2020- No 10mg Take 10 mg Univers (ZYPREXA) -24 10-24 by mouth 2 ity of 10 mg 17:15: 00:00 (two) [place] tablet 26 :00 times Medical daily. Branch OLANZapine 2020- No 10mg Take 10 mg Univers (ZYPREXA) 2-24 10-24 by mouth 2 ity of 10 mg 17:15: 00:00 (two) [place] tablet 26 :00 times Medical daily. Branch OLANZapine 2020- No 10mg Take 10 mg Univers (ZYPREXA) 2-24 -24 by mouth 2 ity of 10 mg 17:15: 00:00 (two) [place] tablet 26 :00 times Medical daily. Branch DULoxetine 2019- No Take 3 Univ ers 30 mg 2-24 -24 capsules ity of capsule 17:15: 00:00 by mouth [place] 09 :00 daily. Medical Branch DULoxetine 2020- No Take 3 Univ ers 30 mg 2-24 02-24 capsules ity of capsule 17:15: 00:00 by mouth [place] 09 :00 daily. Medical Branch DULoxetine 2020- No Take 3 Univ ers 30 mg 2-24 02-24 capsules ity of capsule 17:15: 00:00 by mouth [place] 09 :00 daily. Medical Branch metoprolol 2019- Yes [id number] 50mg Take 1 Un nneka succinate 2-24 tablet by ity o f XL 50 mg 24 00:00: mouth [place] hr tablet 00 daily. Medical Branch metoprolol 2020-0 Yes [id number] 50mg Take 1 Un nneka succinate 2-24 tablet by ity o f XL 50 mg 24 00:00: mouth [place] hr tablet 00 daily. Medical Branch metoprolol 2020-0 Yes [id number] 50mg Take 1 Un nneka succinate 2-24 tablet by ity o f XL 50 mg 24 00:00: mouth [place] hr tablet 00 daily. [facility] Branch metoprolol 2020-0 Yes [id number] 50mg Take 1 Un nneka succinate 2-24 tablet by ity o f XL 50 mg 24 00:00: mouth [place] hr tablet 00 daily. [facility] Branch metoprolol 2020-0 Yes [id number] 50mg Take 1 Un nneka succinate 2-24 tablet by ity o f XL 50 mg 24 00:00: mouth [place] hr tablet 00 daily. [facility] Branch metoprolol 2020-0 Yes [id number] 50mg Take 1 Un nneka succinate 2-24 tablet by ity o f XL 50 mg 24 00:00: mouth [place] hr tablet 00 daily. [facility] Branch metoprolol 2020-0 Yes [id number] 50mg Take 1 Un nneka succinate 2-24 tablet by ity o f XL 50 mg 24 00:00: mouth [place] hr tablet 00 daily. Medical Branch metoprolol 2020-0 Yes [id number] 50mg Take 1 Un nneka succinate 2-24 tablet by ity o f XL 50 mg 24 00:00: mouth [place] hr tablet 00 daily. [facility] Branch metoprolol 2020-0 Yes [id number] 50mg Take 1 Un nneka succinate 2-24 tablet by ity o f XL 50 mg 24 00:00: mouth [place] hr tablet 00 daily. [facility] Branch metoprolol 2020-0 Yes [id number] 50mg Take 1 Un nneka succinate 2-24 tablet by ity o f XL 50 mg 24 00:00: mouth [place] hr tablet 00 daily. Medical Branch metoprolol 2020-0 2020- No [id number] 50mg Take 1 U nivers succinate 2-24 -09 tablet by ity of XL 50 mg 24 00:00: 00:00 mouth [place] hr tablet 00 :00 daily. [facility] Branch metoprolol 2020-0 2020- No [id number] 50mg Take 1 U nivers succinate 2-24 07-09 tablet by ity of XL 50 mg 24 00:00: 00:00 mouth [place] hr tablet 00 :00 daily. [facility] Branch metoprolol 2019-0 2020- No [id number] 50mg Take 1 U nivers succinate 2-24 - tablet by ity of XL 50 mg 24 00:00: 00:00 mouth [place] hr tablet 00 :00 daily. [facility] Branch metoprolol 2019-0 2020- No [id number] 50mg Take 1 U nivers succinate 2-24 -09 tablet by ity of XL 50 mg 24 00:00: 00:00 mouth [place] hr tablet 00 :00 daily. Medical Branch hydroCHLORO 2020-0 Yes [id number] 25mg Take 1 Univers thiazide 25 1-30 tablet by ity of mg tablet 00:00: mouth [place] 00 daily. Medical Branch meloxicam 2020-0 Yes [id number] 15mg Take 1 U nivers 15 mg 1-30 tablet by ity of tablet 00:00: mouth [place] 00 daily. Medical Branch metoprolol 2020-0 Yes [id number] 25mg Take 1 Un nneka succinate 1-30 tablet by ity o f XL 25 mg 24 00:00: mouth [place] hr tablet 00 daily. Medical Branch pregabalin 2020-0 Yes [id number] 150mg Take 1 Univers (LYRICA) 1-30 capsule by ity o f 150 mg 00:00: mouth 2 [place] capsule 00 (two) Medical times Branch daily. hydroCHLORO 2020-0 Yes [id number] 25mg Take 1 [facility] thiazide 25 1-30 tablet by ity of mg tablet 00:00: mouth [place] 00 daily. Medical Branch meloxicam 2020-0 Yes [id number] 15mg Take 1 U nivers 15 mg 1-30 tablet by ity of tablet 00:00: mouth [place] 00 daily. Medical Branch metoprolol 2020-0 Yes [id number] 25mg Take 1 Un nneka succinate 1-30 tablet by ity o f XL 25 mg 24 00:00: mouth [place] hr tablet 00 daily. Medical Branch pregabalin 2020-0 Yes [id number] 150mg Take 1 Univers (LYRICA) 1-30 capsule by ity o f 150 mg 00:00: mouth 2 [place] capsule 00 (two) Medical times Branch daily. hydroCHLORO 2020-0 Yes [id number] 25mg Take 1 Univers thiazide 25 1-30 tablet by ity of mg tablet 00:00: mouth [place] 00 daily. Medical Branch meloxicam 2019-0 Yes [id number] 15mg Take 1 U nivers 15 mg 1-30 tablet by ity of tablet 00:00: mouth [place] 00 daily. Medical Branch pregabalin 2020-0 Yes [id number] 150mg Take 1 Univers (LYRICA) 1-30 capsule by ity o f 150 mg 00:00: mouth 2 [place] capsule 00 (two) Medical times [place] daily. hydroCHLORO 2020-0 Yes [id number] 25mg Take 1 Univers thiazide 25 1-30 tablet by ity of mg tablet 00:00: mouth [place] 00 daily. Medical Branch meloxicam 2020-0 Yes [id number] 15mg Take 1 U nivers 15 mg 1-30 tablet by ity of tablet 00:00: mouth [place] 00 daily. Medical Branch pregabalin 2020-0 Yes [id number] 150mg Take 1 Univers (LYRICA) 1-30 capsule by ity o f 150 mg 00:00: mouth 2 [place] capsule 00 (two) Medical times [place] daily. hydroCHLORO 2020-0 Yes [id number] 25mg Take 1 Univers thiazide 25 1-30 tablet by ity of mg tablet 00:00: mouth [place] 00 daily. Medical Branch meloxicam 2020-0 Yes [id number] 15mg Take 1 U nivers 15 mg 1-30 tablet by ity of tablet 00:00: mouth [place] 00 daily. Medical Branch pregabalin 2020-0 Yes [id number] 150mg Take 1 Univers (LYRICA) 1-30 capsule by ity o f 150 mg 00:00: mouth 2 [place] capsule 00 (two) Medical times [place] daily. hydroCHLORO 2020-0 Yes [id number] 25mg Take 1 Univers thiazide 25 1-30 tablet by ity of mg tablet 00:00: mouth [place] 00 daily. Medical Branch meloxicam 2020-0 Yes [id number] 15mg Take 1 U nivers 15 mg 1-30 tablet by ity of tablet 00:00: mouth [place] 00 daily. Medical Branch pregabalin 2020-0 Yes [id number] 150mg Take 1 Univers (LYRICA) 1-30 capsule by ity o f 150 mg 00:00: mouth 2 [place] capsule 00 (two) Medical times [place] daily. hydroCHLORO 2020-0 Yes [id number] 25mg Take 1 Univers thiazide 25 1-30 tablet by ity of mg tablet 00:00: mouth [place] 00 daily. Medical Branch meloxicam 2020-0 Yes [id number] 15mg Take 1 U nivers 15 mg 1-30 tablet by ity of tablet 00:00: mouth [place] 00 daily. Medical Branch pregabalin 2020-0 Yes [id number] 150mg Take 1 Univers (LYRICA) 1-30 capsule by ity o f 150 mg 00:00: mouth 2 [place] capsule 00 (two) Medical times [place] daily. hydroCHLORO 2020-0 Yes [id number] 25mg Take 1 [facility] thiazide 25 1-30 tablet by ity of mg tablet 00:00: mouth [place] 00 daily. Medical Branch meloxicam 2020-0 Yes [id number] 15mg Take 1 U nivers 15 mg 1-30 tablet by ity of tablet 00:00: mouth [place] 00 daily. Medical Branch pregabalin 2020-0 Yes [id number] 150mg Take 1 Univers (LYRICA) 1-30 capsule by ity o f 150 mg 00:00: mouth 2 [place] capsule 00 (two) Medical times [place] daily. hydroCHLORO 2020-0 Yes [id number] 25mg Take 1 [facility] thiazide 25 1-30 tablet by ity of mg tablet 00:00: mouth [place] 00 daily. Medical Branch meloxicam 2020-0 Yes [id number] 15mg Take 1 U nivers 15 mg 1-30 tablet by ity of tablet 00:00: mouth [place] 00 daily. Medical Branch pregabalin 2020-0 Yes [id number] 150mg Take 1 Univers (LYRICA) 1-30 capsule by ity o f 150 mg 00:00: mouth 2 [place] capsule 00 (two) Medical times Branch daily. hydroCHLORO 2020-0 Yes [id number] 25mg Take 1 [facility] thiazide 25 1-30 tablet by ity of mg tablet 00:00: mouth [place] 00 daily. Medical Branch meloxicam 2020-0 Yes [id number] 15mg Take 1 U nivers 15 mg 1-30 tablet by ity of tablet 00:00: mouth [place] 00 daily. Medical Branch pregabalin 2020-0 Yes [id number] 150mg Take 1 Univers (LYRICA) 1-30 capsule by ity o f 150 mg 00:00: mouth 2 [place] capsule 00 (two) Medical times [place] daily. hydroCHLORO 2020-0 Yes [id number] 25mg Take 1 [facility] thiazide 25 1-30 tablet by ity of mg tablet 00:00: mouth [place] 00 daily. Medical Branch meloxicam 2020-0 Yes [id number] 15mg Take 1 U nivers 15 mg 1-30 tablet by ity of tablet 00:00: mouth [place] 00 daily. Medical Branch pregabalin 2020-0 Yes [id number] 150mg Take 1 Univers (LYRICA) 1-30 capsule by ity o f 150 mg 00:00: mouth 2 [place] capsule 00 (two) Medical times Branch daily. hydroCHLORO 2020-0 Yes [id number] 25mg Take 1 [facility] thiazide 25 1-30 tablet by ity of mg tablet 00:00: mouth [place] 00 daily. Medical Branch meloxicam 2020-0 Yes [id number] 15mg Take 1 U nivers 15 mg 1-30 tablet by ity of tablet 00:00: mouth [place] 00 daily. Medical Branch pregabalin 2020-0 Yes [id number] 150mg Take 1 Univers (LYRICA) 1-30 capsule by ity o f 150 mg 00:00: mouth 2 [place] capsule 00 (two) Medical times Branch daily. meloxicam 2020-0 Yes [id number] 15mg Take 1 U nivers 15 mg 1-30 tablet by ity of tablet 00:00: mouth [place] 00 daily. Medical Branch pregabalin 2020-0 Yes [id number] 150mg Take 1 Univers (LYRICA) 1-30 capsule by ity o f 150 mg 00:00: mouth 2 [place] capsule 00 (two) Medical times Branch daily. meloxicam 2020-0 Yes [id number] 15mg Take 1 U nivers 15 mg 1-30 tablet by ity of tablet 00:00: mouth [place] 00 daily. Medical Branch pregabalin 2020-0 Yes [id number] 150mg Take 1 Univers (LYRICA) 1-30 capsule by ity o f 150 mg 00:00: mouth 2 [place] capsule 00 (two) Medical times Branch daily. meloxicam 2020-0 Yes [id number] 15mg Take 1 U nivers 15 mg 1-30 tablet by ity of tablet 00:00: mouth [place] 00 daily. Medical Branch pregabalin 2020-0 Yes [id number] 150mg Take 1 Univers (LYRICA) 1-30 capsule by ity o f 150 mg 00:00: mouth 2 [place] capsule 00 (two) Medical times Branch daily. meloxicam 2020-0 Yes [id number] 15mg Take 1 U nivers 15 mg 1-30 tablet by ity of tablet 00:00: mouth [place] 00 daily. Medical Branch pregabalin 2020-0 Yes [id number] 150mg Take 1 Univers (LYRICA) 1-30 capsule by ity o f 150 mg 00:00: mouth 2 [place] capsule 00 (two) Medical times Branch daily. meloxicam 2020-0 Yes [id number] 15mg Take 1 U nivers 15 mg 1-30 tablet by ity of tablet 00:00: mouth [place] 00 daily. Medical Branch pregabalin 2020-0 Yes [id number] 150mg Take 1 Univers (LYRICA) 1-30 capsule by ity o f 150 mg 00:00: mouth 2 [place] capsule 00 (two) Medical times Branch daily. meloxicam 2020-0 Yes [id number] 15mg Take 1 U nivers 15 mg 1-30 tablet by ity of tablet 00:00: mouth [place] 00 daily. Medical Branch pregabalin 2020-0 Yes [id number] 150mg Take 1 Univers (LYRICA) 1-30 capsule by ity o f 150 mg 00:00: mouth 2 [place] capsule 00 (two) Medical times Branch daily. meloxicam 2020-0 Yes [id number] 15mg Take 1 U nivers 15 mg 1-30 tablet by ity of tablet 00:00: mouth [place] 00 daily. Medical Branch pregabalin 2020-0 Yes [id number] 150mg Take 1 Univers (LYRICA) 1-30 capsule by ity o f 150 mg 00:00: mouth 2 [place] capsule 00 (two) Medical times Branch daily. meloxicam 2020-0 Yes [id number] 15mg Take 1 U nivers 15 mg 1-30 tablet by ity of tablet 00:00: mouth [place] 00 daily. Medical Branch pregabalin 2020-0 Yes [id number] 150mg Take 1 Univers (LYRICA) 1-30 capsule by ity o f 150 mg 00:00: mouth 2 [place] capsule 00 (two) Medical times Branch daily. meloxicam 2020-0 Yes [id number] 15mg Take 1 U nivers 15 mg 1-30 tablet by ity of tablet 00:00: mouth [place] 00 daily. Medical Branch pregabalin 2020-0 Yes [id number] 150mg Take 1 Univers (LYRICA) 1-30 capsule by ity o f 150 mg 00:00: mouth 2 [place] capsule 00 (two) Medical times Branch daily. meloxicam 2020-0 Yes [id number] 15mg Take 1 U nivers 15 mg 1-30 tablet by ity of tablet 00:00: mouth [place] 00 daily. Medical Branch pregabalin 2020-0 Yes [id number] 150mg Take 1 Univers (LYRICA) 1-30 capsule by ity o f 150 mg 00:00: mouth 2 [place] capsule 00 (two) Medical times Branch daily. meloxicam 2020-0 Yes [id number] 15mg Take 1 U nivers 15 mg 1-30 tablet by ity of tablet 00:00: mouth [place] 00 daily. Medical Branch pregabalin 2020-0 Yes [id number] 150mg Take 1 Univers (LYRICA) 1-30 capsule by ity o f 150 mg 00:00: mouth 2 [place] capsule 00 (two) Medical times Branch daily. meloxicam 2020-0 Yes [id number] 15mg Take 1 U nivers 15 mg 1-30 tablet by ity of tablet 00:00: mouth [place] 00 daily. Medical Branch pregabalin 2020-0 Yes [id number] 150mg Take 1 Univers (LYRICA) 1-30 capsule by ity o f 150 mg 00:00: mouth 2 [place] capsule 00 (two) Medical times Branch daily. meloxicam 2020-0 Yes [id number] 15mg Take 1 U nivers 15 mg 1-30 tablet by ity of tablet 00:00: mouth [place] 00 daily. [facility] Branch pregabalin 2020-0 Yes [id number] 150mg Take 1 [facility] (LYRICA) 1-30 capsule by ity o f 150 mg 00:00: mouth 2 [place] capsule 00 (two) Medical times Branch daily. meloxicam 2020-0 Yes [id number] 15mg Take 1 U nivers 15 mg 1-30 tablet by ity of tablet 00:00: mouth [place] 00 daily. [facility] Branch pregabalin 2020-0 Yes [id number] 150mg Take 1 [facility] (LYRICA) 1-30 capsule by ity o f 150 mg 00:00: mouth 2 [place] capsule 00 (two) Medical times Branch daily. meloxicam 2020-0 Yes [id number] 15mg Take 1 U nivers 15 mg 1-30 tablet by ity of tablet 00:00: mouth [place] 00 daily. [facility] Branch pregabalin 2020-0 Yes [id number] 150mg Take 1 [facility] (LYRICA) 1-30 capsule by ity o f 150 mg 00:00: mouth 2 [place] capsule 00 (two) Medical times Branch daily. meloxicam 2020-0 Yes [id number] 15mg Take 1 U nivers 15 mg 1-30 tablet by ity of tablet 00:00: mouth [place] 00 daily. Medical Branch pregabalin 2020-0 Yes [id number] 150mg Take 1 [facility] (LYRICA) 1-30 capsule by ity o f 150 mg 00:00: mouth 2 [place] capsule 00 (two) Medical times Branch daily. meloxicam 2020-0 Yes [id number] 15mg Take 1 U nivers 15 mg 1-30 tablet by ity of tablet 00:00: mouth [place] 00 daily. [facility] Branch pregabalin 2020-0 Yes [id number] 150mg Take 1 [facility] (LYRICA) 1-30 capsule by ity o f 150 mg 00:00: mouth 2 [place] capsule 00 (two) Medical times Branch daily. meloxicam 2020-0 Yes [id number] 15mg Take 1 U nivers 15 mg 1-30 tablet by ity of tablet 00:00: mouth [place] 00 daily. [facility] Branch meloxicam 2020-0 Yes [id number] 15mg Take 1 U nivers 15 mg 1-30 tablet by ity of tablet 00:00: mouth [place] 00 daily. [facility] Branch meloxicam 2020-0 Yes [id number] 15mg Take 1 U nivers 15 mg 1-30 tablet by ity of tablet 00:00: mouth [place] 00 daily. [facility] Branch meloxicam 2020-0 Yes [id number] 15mg Take 1 U nivers 15 mg 1-30 tablet by ity of tablet 00:00: mouth [place] 00 daily. [facility] Branch meloxicam 2020-0 Yes [id number] 15mg Take 1 U nivers 15 mg 1-30 tablet by ity of tablet 00:00: mouth [place] 00 daily. [facility] Branch meloxicam 2020-0 Yes [id number] 15mg Take 1 U nivers 15 mg 1-30 tablet by ity of tablet 00:00: mouth [place] 00 daily. [facility] Branch meloxicam 2020-0 Yes [id number] 15mg Take 1 U nivers 15 mg 1-30 tablet by ity of tablet 00:00: mouth [place] 00 daily. Medical Branch meloxicam 2019-0 Yes [id number] 15mg Take 1 U nivers 15 mg 1-30 tablet by ity of tablet 00:00: mouth [place] 00 daily. Medical [facility] pregabalin 2019- No [id number] 150mg Take 1 [facility] (LYRICA) -30 12-21 capsule by ity of 150 mg 00:00: 00:00 mouth 2 [place] capsule 00 :00 (two) Medical times Branch daily. hydroCHLORO 2019-2019- No [id number] 25mg Take 1 [facility] thiazide 25 30 -09 tablet by it y of mg tablet 00:00: 00:00 mouth [place] 00 :00 daily. Medical Branch hydroCHLORO 2019- No [id number] 25mg Take 1 [facility] thiazide 25 -30 -09 tablet by it y of mg tablet 00:00: 00:00 mouth [place] 00 :00 daily. Medical Branch hydroCHLORO 2019- No [id number] 25mg Take 1 [facility] thiazide 25 30 -09 tablet by it y of mg tablet 00:00: 00:00 mouth [place] 00 :00 daily. Medical Branch hydroCHLORO 2019- No [id number] 25mg Take 1 [facility] thiazide 25 -30 -09 tablet by it y of mg tablet 00:00: 00:00 mouth [place] 00 :00 daily. Medical [facility] metoprolol 2019- 2020- No [id number] 25mg Take 1 U nivers succinate -30 02-24 tablet by ity of XL 25 mg 24 00:00: 00:[place] tablet 00 :00 daily. [facility] metoprolol 2019-2019- No [id number] 25mg Take 1 U nivers succinate -30 02-24 tablet by ity of XL 25 mg 24 00:00: 00:00 [place] tablet 00 :00 daily. [facility] metoprolol 2020- No [id number] 25mg Take 1 U nivers succinate 1-30 02-24 tablet by ity of XL 25 mg 24 00:00: 00:00 [place] tablet 00 :00 daily. [facility] aripiprazol 2018-08 Yes 5mg Take 5 mg U nivers e (ABILIFY 2-17 by mouth 2 ity of ORAL) 15:02: (two) [place] 33 times Medical daily. Branch aripiprazol 2018-08 Yes 5mg Take 5 mg U nivers e (ABILIFY 2-17 by mouth 2 ity of ORAL) 15:02: (two) [place] 33 times Medical daily. Branch aripiprazol 2018-08 Yes 5mg Take 5 mg U nivers e (ABILIFY 2-17 by mouth 2 ity of ORAL) 15:02: (two) [place] 33 times Medical daily. Branch aripiprazol 2018-08 Yes 5mg Take 5 mg U nivers e (ABILIFY 2-17 by mouth 2 ity of ORAL) 15:02: (two) [place] 33 times Medical daily. Branch VITAMIN B 2018-08 Yes Take by Unive rs COMPLEX 0-31 mouth. ity of ORAL 17:11: [address] traZODONE 2018-08 Yes 100mg Take 100 Uni vers 100 mg 0-31 mg by ity of tablet 17:11: mouth at [place] [address] bedtime. [facility] Branch VITAMIN B 2018-08 Yes Take by Unive rs COMPLEX 0-31 mouth. ity of ORAL 17:11: [address] traZODONE 2018-08 Yes 100mg Take 100 Uni vers 100 mg 0-31 mg by ity of tablet 17:11: mouth at [place] [address] bedtime. Medical Branch VITAMIN B 2018-08 Yes Take by Unive rs COMPLEX 0-31 mouth. ity of ORAL 17:11: [address] Branch traZODONE 2018-08 Yes 100mg Take 100 Uni vers 100 mg 0-31 mg by ity of tablet 17:11: mouth at [place] [address] bedtime. Medical Branch VITAMIN B 2018-08 Yes Take by Unive rs COMPLEX 0-31 mouth. ity of ORAL 17:11: [address] traZODONE 2018-08 Yes 100mg Take 100 Uni vers 100 mg 0-31 mg by ity of tablet 17:11: mouth at [place] 25 bedtime. [facility] Branch traZODONE Yes 100mg Take 100 Uni vers 100 mg 8-29 mg by ity of tablet 19:24: mouth at [place] [address] bedtime. Medical Branch traZODONE Yes 100mg Take 100 Uni vers 100 mg 8-29 mg by ity of tablet 19:24: mouth at [place] [address] bedtime. Medical Branch traZODONE 0 Yes 100mg Take 100 Uni vers 100 mg 8-29 mg by ity of tablet 19:24: mouth at [place] bedtime. Medical Branch traZODONE Yes 100mg Take 100 Uni vers 100 mg 8-29 mg by ity of tablet 19:24: mouth at [place] [address] bedtime. Medical Branch traZODONE Yes 100mg Take 100 Uni vers 100 mg 8-29 mg by ity of tablet 19:24: mouth at [place] [address] bedtime. Medical Branch traZODONE Yes 100mg Take 100 Uni vers 100 mg 8-29 mg by ity of tablet 19:24: mouth at [place] [address] bedtime. Medical Branch benztropine Yes 1mg Take [...] 8-29 by mouth ity of 14:39: daily. [place] [facility] ARIPiprazol Yes 10mg Take 10 [...] 8-29 by mouth ity of 14:39: daily. [address] ARIPiprazol Yes 10mg Take 10 mg [...] 8-29 by mouth ity of 14:39: daily. [address] ARIPiprazol Yes 10mg Take 10 mg [...] 8-29 by mouth ity of 14:39: daily. [place] [facility] ARIPiprazol Yes 10mg Take 10 [...] 8-29 by mouth ity of 14:39: daily. [place] [address] Medical Branch ARIPiprazol Yes 10mg Take 10 [...] 21 times Medical daily. Branch metoprolol Yes [id number] 25mg Take 1 Un nneka succinate 8-29 tablet by ity o f XL 25 mg 24 00:00: mouth [place] hr tablet 00 daily. Medical Branch hydroCHLORO Yes [id number] 25mg Take 1 [facility] thiazide 25 8-29 tablet by ity of mg tablet 00:00: mouth [place] 00 daily. Medical Branch meloxicam Yes [id number] 15mg Take 1 U nivers 15 mg 8-29 tablet by ity of tablet 00:00: mouth [place] 00 daily. Medical Branch metoprolol Yes [id number] 25mg Take 1 Un nneka succinate 8-29 tablet by ity o f XL 25 mg 24 00:00: mouth [place] hr tablet 00 daily. Medical Branch hydroCHLORO Yes [id number] 25mg Take 1 [facility] thiazide 25 8-29 tablet by ity of mg tablet 00:00: mouth [place] 00 daily. Medical Branch meloxicam Yes [id number] 15mg Take 1 U nivers 15 mg 8-29 tablet by ity of tablet 00:00: mouth [place] 00 daily. Medical Branch metoprolol Yes [id number] 25mg Take 1 Un nneka succinate 8-29 tablet by ity o f XL 25 mg 24 00:00: mouth [place] hr tablet 00 daily. Medical Branch hydroCHLORO 0 Yes [id number] 25mg Take 1 [facility] thiazide 25 8-29 tablet by ity of mg tablet 00:00: mouth [place] 00 daily. Medical Branch meloxicam 0 Yes [id number] 15mg Take 1 U nivers 15 mg 8-29 tablet by ity of tablet 00:00: mouth [place] 00 daily. Medical Branch metoprolol 0 Yes [id number] 25mg Take 1 Un nneka succinate 8-29 tablet by ity o f XL 25 mg 24 00:00: mouth [place] hr tablet 00 daily. Medical Branch hydroCHLORO 0 Yes [id number] 25mg Take 1 [facility] thiazide 25 8-29 tablet by ity of mg tablet 00:00: mouth [place] 00 daily. Medical Branch meloxicam Yes [id number] 15mg Take 1 U nivers 15 mg 8-29 tablet by ity of tablet 00:00: mouth [place] 00 daily. Medical Branch metoprolol Yes [id number] 25mg Take 1 Un nneka succinate 8-29 tablet by ity o f XL 25 mg 24 00:00: mouth [place] hr tablet 00 daily. Medical Branch hydroCHLORO 0 Yes [id number] 25mg Take 1 [facility] thiazide 25 8-29 tablet by ity of mg tablet 00:00: mouth [place] 00 daily. Medical Branch meloxicam 2018-0 Yes [id number] 15mg Take 1 U nivers 15 mg 8-29 tablet by ity of tablet 00:00: mouth [place] 00 daily. Medical Branch metoprolol 0 Yes [id number] 25mg Take 1 Un nneka succinate 8-29 tablet by ity o f XL 25 mg 24 00:00: mouth [place] hr tablet 00 daily. Medical Branch hydroCHLORO 0 Yes [id number] 25mg Take 1 [facility] thiazide 25 8-29 tablet by ity of mg tablet 00:00: mouth [place] 00 daily. Medical Branch meloxicam 0 Yes [id number] 15mg Take 1 U nivers 15 mg 8-29 tablet by ity of tablet 00:00: mouth [place] 00 daily. Medical Branch metoprolol 0 Yes [id number] 25mg Take 1 Un nneka succinate 8-29 tablet by ity o f XL 25 mg 24 00:00: mouth [place] hr tablet 00 daily. Medical Branch hydroCHLORO Yes [id number] 25mg Take 1 [facility] thiazide 25 8-29 tablet by ity of mg tablet 00:00: mouth [place] 00 daily. Medical Branch meloxicam Yes [id number] 15mg Take 1 U nivers 15 mg 8-29 tablet by ity of tablet 00:00: mouth [place] 00 daily. Medical Branch metoprolol 2020- No [id number] 25mg Take 1 U nivers succinate 8-28 09-30 tablet by ity of XL 25 mg 24 00:00: 00:00 [place] hr tablet 00 :00 daily. [facility] Branch hydroCHLORO 2020- No [id number] 25mg Take 1 [facility] thiazide 25 -28 09-30 tablet by it y of mg tablet 00:00: 00:00 mouth [place] 00 :00 daily. Medical Branch meloxicam 2020- No [id number] 15mg Take 1 [facility] 15 mg 8-28 09-30 tablet by ity of tablet 00:00: 00:00 mouth [place] 00 :00 daily. Medical Branch metoprolol 2020- No [id number] 25mg Take 1 U nivers succinate 8-28 09-30 tablet by ity of XL 25 mg 24 00:00: 00:00 mouth [place] hr tablet 00 :00 daily. [facility] Branch hydroCHLORO 2020- No [id number] 25mg Take 1 [facility] thiazide 25 04-2830 tablet by it y of mg tablet 00:00: 00:00 mouth [place] 00 :00 daily. Medical Branch meloxicam 2020- No [id number] 15mg Take 1 [facility] 15 mg 8-28 [...] Dose 2018-0 No Unknown 7- 00:00: 00 METOPROLOL 2019- No [id number] TAKE 1 U nivers SUCCINATE 7-10 -29 TABLET BY ity of XL 25 mg 24 00:00: 00:00 MOUTH [place] hr tablet 00 :00 EVERY DAY Medic al Branch METOPROLOL 2019- No [id number] TAKE 1 U nivers SUCCINATE 7-10 -29 TABLET BY ity of XL 25 mg 24 00:00: 00:00 MOUTH [place] hr tablet 00 :00 EVERY DAY Medic al Branch hydroCHLORO 2019- No [id number] 25mg Take 1 [facility] thiazide 25 5-30 -29 tablet by it y of mg tablet 00:00: 00:00 mouth [place] 00 :00 daily. Medical Branch meloxicam 2019- No [id number] 7.5mg Take 1 [facility] (MOBIC) 7.5 -30 -29 tablet by it y of mg tablet 00:00: 00:00 mouth [place] 00 :00 daily. Medical Branch hydroCHLORO 2019- No [id number] 25mg Take 1 [facility] thiazide 25 -30 - tablet by it y of mg tablet 00:00: 00:00 mouth [place] 00 :00 daily. Medical Branch meloxicam 2019- No [id number] 7.5mg Take 1 [facility] (MOBIC) 7.5 -30 [...] by mouth ity of tablet 20:00: at [place] 25 bedtime. Medical Branch DULOXETINE 2019-0 Yes 60mg Take 60 mg U nivers HCL 4-23 by mouth 3 ity of (CYMBALTA 20:00: (three) [place] ORAL) 25 times Medical daily. Branch OLANZapine 2019-0 Yes 20mg Take 20 mg U nivers 20 mg 4-23 by mouth ity of tablet 20:00: at [place] 25 bedtime. Medical Branch DULOXETINE 2019-0 Yes 60mg Take 60 mg U nivers HCL 4-23 by mouth 3 ity of (CYMBALTA 20:00: (three) [place] ORAL) 25 times Medical daily. Branch OLANZapine 2019-0 Yes 20mg Take 20 mg U nivers 20 mg 4-23 by mouth ity of tablet 20:00: at [place] 25 bedtime. Medical Branch DULOXETINE 2019-0 Yes 60mg Take 60 mg U nivers HCL 4-23 by mouth 3 ity of (CYMBALTA 20:00: (three) [place] ORAL) 25 times Medical daily. Branch OLANZapine 2019-0 Yes 20mg Take 20 mg U nivers 20 mg 4-23 by mouth ity of tablet 20:00: at [place] 25 bedtime. Medical Branch DULOXETINE 2019-0 Yes 60mg Take 60 mg U nivers HCL 4-23 by mouth 3 ity of (CYMBALTA 20:00: (three) [place] ORAL) 25 times Medical daily. Branch OLANZapine 2019-0 Yes 20mg Take 20 mg U nivers 20 mg 4-23 by mouth ity of tablet 20:00: at [place] 25 bedtime. Medical Branch aripiprazol 2019-0 Yes [...] by mouth ity of tablet 20:00: at [place] 25 bedtime. Medical Branch aripiprazol 2019-0 Yes [...] by mouth ity of tablet 20:00: at [place] 25 bedtime. Medical Branch aripiprazol 2019-0 Yes [...] by mouth ity of tablet 20:00: at [place] 25 bedtime. Medical Branch aripiprazol 2019-0 Yes [...] by mouth ity of tablet 20:00: at [place] 25 bedtime. Medical Branch aripiprazol 2019-0 Yes 5mg Take 5 mg U nivers e (ABILIFY 4-23 by mouth 2 ity of ORAL) 20:00: (two) [place] 25 times Medical daily. Branch VITAMIN B 2019-0 Yes Take by Unive rs COMPLEX 3-28 mouth. ity of ORAL 16:11: [place] [address] Medical Branch VITAMIN B 2019-0 Yes Take by Unive rs COMPLEX 3-28 mouth. ity of ORAL 16:11: [address] Branch VITAMIN B 2019-0 Yes Take by Unive rs COMPLEX 3-28 mouth. ity of ORAL 16:11: [address] VITAMIN B 0 Yes Take by Unive rs COMPLEX 3-28 mouth. ity of ORAL 16:11: [address] VITAMIN B 0 Yes Take by Unive rs COMPLEX 3-28 mouth. ity of ORAL 16:11: [address] VITAMIN B Yes Take by Unive rs COMPLEX 3-28 mouth. ity of ORAL 16:11: [address] amlodipine 2019-0 No 1mg 5 mg [...] No Unknown 05-19 00:00: 00 Zyprexa 15 2017-0 No 1mg mg tablet 05-19 00:00: 00 [...] 8-15 tablet 00:00: 00 cyclobenzap 2018-0 Yes [id number] Bid prn Univers rine 10 mg 8-02 ity of tablet 00:00: [place] [address] Medical Branch cyclobenzap 2018-0 Yes [id number] Bid prn Univers rine 10 mg 8-02 ity of tablet 00:00: [address] Branch cyclobenzap 2018-0 Yes [id number] Bid prn Univers rine 10 mg 8-02 ity of tablet 00:00: [place] [address] Medical Branch cyclobenzap 2018-0 Yes [id number] Bid prn Univers rine 10 mg 8-02 ity of tablet 00:00: [place] [address] Medical Branch cyclobenzap 2018-0 Yes [id number] Bid prn Univers rine 10 mg 8-02 ity of tablet 00:00: [place] [address] Medical Branch cyclobenzap 2018-0 Yes [id number] Bid prn Univers rine 10 mg 8-02 ity of tablet 00:00: [address] Branch cyclobenzap 2018-0 Yes [id number] Bid prn Univers rine 10 mg 8-02 ity of tablet 00:00: [place] 00 Medical Branch cyclobenzap 2018-0 Yes [id number] Bid prn Univers rine 10 mg 8-02 ity of tablet 00:00: [address] Branch cyclobenzap 2018-0 Yes [id number] Bid prn Univers rine 10 mg 8-02 ity of tablet 00:00: [place] 00 Medical Branch cyclobenzap 2018-0 Yes [id number] Bid prn Univers rine 10 mg 8- ity of tablet 00:00: [place] 00 Medical Branch cyclobenzap 2018-0 2020- No [id number] Bid prn Univers rine 10 mg 04-01 ity of tablet 00:00: 00:00 [place] 00 :00 Medical Branch cyclobenzap 2018-0 2020- No [id number] Bid prn Univers rine 10 mg 04-01 ity of tablet 00:00: 00:00 [place] 00 :00 Medical Branch cyclobenzap 2018-0 2020- No [id number] Bid prn Univers rine 10 mg 04-01 ity of tablet 00:00: 00:00 [place] 00 :00 Medical Branch amlodipine 2018-0 No [...] 5-19 capsule 00:00: 00 DULoxetine 2016-0 Yes [id number] Reynold sey HCl 30 MG 3-16 [place] oral 00:00: - Capsule 00 Externa Delayed l Release Sprinkle hydrOXYzine 2016-0 Yes [id number] Ke lsey HCl 25 MG 3-16 [place] oral Tablet 00:00: - 00 Externa l DULoxetine 2016-0 Yes [id number] Reynold sey HCl 30 MG 3-16 [place] oral 00:00: - Capsule 00 Externa Delayed l Release Sprinkle hydrOXYzine 2016-0 Yes [id number] Ke l[place] HCl 25 MG 3-16 [place] oral Tablet 00:00: - 00 Externa l DULoxetine 2016-0 Yes Jelena HCl 30 MG 3-16 [place] oral 00:00: - Capsule 00 Externa Delayed l Release Sprinkle hydrOXYzine 2016-0 Yes Jelena HCl 25 MG 3-16 [place] oral Tablet 00:00: - 00 Externa l DULoxetine 2016-0 Yes [id number] Reynold sey HCl 30 MG 3-16 [place] oral 00:00: - Capsule 00 Externa Delayed l Release Sprinkle hydrOXYzine 2016-0 Yes [id number] Ke l[place] HCl 25 MG 3-16 [place] oral Tablet 00:00: - 00 Externa l DULoxetine 2016-0 Yes [id number] Reynold sey HCl 30 MG 3-16 [place] oral 00:00: - Capsule 00 Externa Delayed l Release Sprinkle hydrOXYzine 2016-0 Yes [id number] Ke l[place] HCl 25 MG 3-16 [place] oral Tablet 00:00: - 00 Externa l DULoxetine 2016-0 Yes [id number] Reynold sey HCl 30 MG 3-16 [place] oral 00:00: - Capsule 00 Externa Delayed l Release Sprinkle hydrOXYzine 2016-0 Yes [id number] Ke l[place] HCl 25 MG 3-16 [place] oral Tablet 00:00: - 00 Externa l DULoxetine 3- No [id number] Ke lsey HCl 30 MG 3-16 04-24 [place] oral 00:00: 00:00 - Capsule 00 :00 Externa Delayed l Release Sprinkle hydrOXYzine 3- No [id number] K elsey HCl 25 MG 3-16 04-24 [place] oral Tablet 00:00: 00:00 - 00 :00 Externa l Immunizations Ordered Immunization Filled Immunization Date Status Commen Source Name Name COVID-19 BIVALENT 2022-08-28 Completed [...] MODERNA COVID-19 BIVALENT 2022-08-28 Completed Jelena Seybold VACCINE MODERNA 00:00:00 - Externa l COVID-19 BIVALENT 2022-08-28 Completed Jelena Seybold VACCINE MODERNA 00:00:00 - Externa l COVID-19 BIVALENT 2022-08-28 Completed Jelena Seybold VACCINE MODERNA 00:00:00 - Externa l Moderna COVID-19 2022-08-28 Completed Vaccine Bivalent 00:00:00 [...] Completed Vaccine 00:00:00 Pneumococcal Vaccine, 2019-04-29 Completed Reynold sey Seybold [...] woodard Seybold Conjugate 7 00:00:00 - External HPV [...] - External Pneumococcal Vaccine, 2009-04-17 Completed Reynold y Seybold Conjugate 7 00:00:00 - External DTaP Unspecified 2009-04-17 Completed Jelena Umaña eybold 00:00:00 - External Hepatitis A 2009-04-17 Completed Jelena Eatonol d 00:00:00 - External HPV 4 (Human 2009-04-17 Completed Jelena Seybo ld Papillomavirus) 00:00:00 - Externa l Pneumococcal Vaccine, 2009-04-17 Completed Ryenold woodard Seybold Conjugate 7 00:00:00 - External [...] - External HPV 4 (Human 2009-04-17 Completed Jeelna Seybo ld Papillomavirus) 00:00:00 - [...] Completed Jelena Seyb old Mcv4,unspecified 00:00:00 - 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 Hepatitis A 2008-02-18 Completed Jelena Seybol d 00:00:00 - External HPV 4 (Human 2008-02-18 Completed Jelena Seybo ld Papillomavirus) 00:00:00 - Externa l Meningococcal 2008-02-18 Completed Jelena Seyb old Mcv4,unspecified 00:00:00 - 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 Hepatitis A 2008-02-18 Completed Jelena Seybol d 00:00:00 - External HPV 4 (Human 2008-02-18 Completed Jelena Seybo ld Papillomavirus) 00:00:00 - Externa l Meningococcal 2008-02-18 Completed Jelena Seyb old Mcv4,unspecified 00:00:00 - 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 Hepatitis A 2008-02-18 Completed Jelena Seybol d 00:00:00 - External Hepatitis A 2008-02-18 Completed Jelena Seybol d 00:00:00 - External HPV 4 (Human 2008-02-18 Completed Jelena Seybo ld Papillomavirus) 00:00:00 - Externa l Meningococcal 2008-02-18 Completed Jelena Seyb old Mcv4,unspecified 00:00:00 - 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 Hepatitis A 2008-02-18 Completed Jelena Seybol d 00:00:00 - External HPV 4 (Human 2008-02-18 Completed Jelena Seybo ld Papillomavirus) 00:00:00 - Externa l Meningococcal 2008-02-18 Completed Jelena Seyb old Mcv4,unspecified 00:00:00 - 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 HPV 4 (Human 2008-02-18 Completed Jelena Seybo ld Papillomavirus) 00:00:00 - Externa l Meningococcal 2008-02-18 Completed Jelena Seyb old Mcv4,unspecified 00:00:00 - 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 Hepatitis A 2008-02-18 Completed Jelena Seybol d 00:00:00 - External HPV 4 (Human 2008-02-18 Completed Jelena Seybo ld Papillomavirus) 00:00:00 - Externa l Meningococcal 2008-02-18 Completed Jelena Seyb old Mcv4,unspecified 00:00:00 - 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 Hepatitis A 2008-02-18 Completed Jelena Seybol d 00:00:00 - External HPV 4 (Human 2008-02-18 Completed Jelena Seybo ld Papillomavirus) 00:00:00 - Externa l Meningococcal 2008-02-18 Completed Jelena Seyb old Mcv4,unspecified 00:00:00 - 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 Hepatitis A 2008-02-18 Completed Jelena Seybol d 00:00:00 - External HPV 4 (Human 2008-02-18 Completed Jelena Seybo ld Papillomavirus) 00:00:00 - Externa l Meningococcal 2008-02-18 Completed Jelena Seyb old Mcv4,unspecified 00:00:00 - 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 Hepatitis A 2008-02-18 Completed Jelena Seybol d 00:00:00 - External HPV 4 (Human 2008-02-18 Completed Jelena Seybo ld Papillomavirus) 00:00:00 - Externa l Meningococcal 2008-02-18 Completed Jelena Seyb old Mcv4,unspecified 00:00:00 - 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 Hepatitis A 2008-02-18 Completed Jelena Seybol d 00:00:00 - External HPV 4 (Human 2008-02-18 Completed Jelena Seybo ld Papillomavirus) 00:00:00 - Externa l Meningococcal 2008-02-18 Completed Jelena Seyb old Mcv4,unspecified 00:00:00 - 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 Td (adult), 2 Lf 2006-05-25 Completed Jelena S eybold tetanus toxoid, 00:00:00 - Externa l preservative free, adsorbed Td (adult), 2 Lf 2006-05-25 Completed Jelena S eybold tetanus toxoid, 00:00:00 - Externa l preservative free, adsorbed Td (adult), 2 Lf 2006-05-25 Completed Jelena S eybold tetanus toxoid, 00:00:00 - Externa l preservative free, adsorbed Td (adult), 2 2006-05-25 Completed Jelena Umaña eybold tetanus toxoid, 00:00:00 - Externa l preservative free, adsorbed Td (adult), 2 2006-05-25 Completed Jelena S eybold tetanus toxoid, 00:00:00 - Externa l preservative free, adsorbed Td (adult), 2 2006-05-25 Completed Jelena Umaña eybold tetanus toxoid, 00:00:00 - Externa l preservative free, adsorbed Td (adult), 2 2006-05-25 Completed Jelena S eybold tetanus toxoid, 00:00:00 - Externa l preservative free, adsorbed Td (adult), 2 2006-05-25 Completed Jelena Umaña eybold tetanus toxoid, 00:00:00 - Externa l preservative free, adsorbed Td (adult), 2 2006-05-25 Completed Jelena Umaña eybold tetanus toxoid, 00:00:00 - Externa l preservative free, adsorbed Td (adult), 2 2006-05-25 Completed Jelena Umaña eybold tetanus toxoid, 00:00:00 - Externa l preservative free, adsorbed Td (adult), 2 2006-05-25 Completed Jelena Umaña eybold tetanus toxoid, 00:00:00 - Externa l preservative free, adsorbed Varicella Vaccine 2002-04-21 Completed Jelena Guevaraybmarcel 00:00:00 - External Varicella Vaccine 2002-04-21 Completed Jelena Guevaraybold 00:00:00 - External Varicella Vaccine 2002-04-21 Completed Jelena Seybold 00:00:00 - External Varicella Vaccine 2002-04-21 Completed Jelena Seybold 00:00:00 - External Varicella Vaccine 2002-04-21 Completed Jelena Guevaraybold 00:00:00 - External Varicella Vaccine 2002-04-21 Completed Jelena Guevaraybold 00:00:00 - External Varicella Vaccine 2002-04-21 Completed Jelena Seybold 00:00:00 - External Varicella Vaccine 2002-04-21 Completed Jelena Guevaraybold 00:00:00 - External Varicella Vaccine 2002-04-21 Completed Jelena Guevaraybold 00:00:00 - External Varicella Vaccine 2002-04-21 Completed Jelena Ibrahim 00:00:00 - External Varicella Vaccine 2002-04-21 Completed Jelena Ibrahim 00:00:00 - External HIB- Haemophilus 1997-05-31 Completed Jelena Umaña eybold Influenzae Type B 00:00:00 - Exter nal HIB- Haemophilus 1997-05-31 Completed Jelena S eybold Influenzae Type B 00:00:00 - Exter nal HIB- Haemophilus 1997-05-31 Completed Jelena Umaña eybold Influenzae Type B 00:00:00 - Exter nal HIB- Haemophilus 1997-05-31 Completed Jelena S eybold Influenzae Type B 00:00:00 - Exter nal HIB- Haemophilus 1997-05-31 Completed Jelena Umaña eybold Influenzae Type B 00:00:00 - Exter nal HIB- Haemophilus 1997-05-31 Completed Jelena S eybold Influenzae Type B [...] E xternal rtussis DTP- 1997-04-05 Completed Jelena Eatonold Diphtheria,Tetanus,Pe 00:00:00 - E [...] - Exter nal HIB- Haemophilus 1995-09-25 Completed Jelnea S eybold Influenzae Type B 00:00:00 - [...] rtussis OPV- Oral Polio 1993 Completed Jelena Se [...] External Diastolic blood 2023-02-18 16:01:00 91 mm[Hg] Reynoldse y Seybold - pressure External Heart rate 2023-02-18 16:01:00 77 /min Jelena Umaña eybold - External Body temperature 2023-02-18 16:01:00 35.39 Mera Ashlie ey Seybold - External Respiratory rate 2023-02-18 16:01:00 14 /min Ashlie shah Seybold - External Body height 2023-02-18 16:01:00 160 cm Jelena Umaña eybold - External Body weight 2023-02-18 16:01:00 130.636 kg Jelena Umaña eybold - External BMI 2023-02-18 16:01:00 51.02 kg/m2 Jelena Umaña eybold - External Systolic blood 2023-01-28 15:56:00 144 mm[Hg] Jelena Seybold - pressure External Diastolic blood 2023-01-28 15:56:00 92 mm[Hg] Beth y Seybold - pressure External Heart rate 2023-01-28 15:56:00 80 /min Jelena Umaña eybold - External Respiratory rate 2023-01-28 15:56:00 16 [...] External BMI 2022-12-29 14:50:00 50.84 kg/m2 Jelena S eybold - External Systolic blood 2022-12-22 14:00:00 132 mm[Hg] Jelena Seybold - pressure External Diastolic blood 2022-12-22 14:00:00 96 mm[Hg] Reynoldse y Seybold - pressure External [...] Body weight 2022-10-10 14:33:00 128.368 kg Jelena Umaañ eybold - External BMI 2022-10-10 14:33:00 50.13 [...] External Diastolic blood 2022-09-09 14:45:00 86 mm[Hg] Kelse y Seybold - pressure [...] 15:09:00 126 mm[Hg] Univer sity of pressure [facility] Diastolic blood 2020-09-07 15:09:00 88 mm[Hg] Unive rsity of pressure [facility] Heart rate 2020-09-07 15:09:00 76 /min [facility] Body height 2020-09-07 15:09:00 160 cm [facility] Body weight 2020-09-07 15:09:00 114.306 kg [facility] BMI 2020-09-07 15:09:00 44.64 kg/m2 [facility] Systolic blood 2020-09-07 15:09:00 126 mm[Hg] Univer sity of pressure [facility] Diastolic blood 2020-09-07 15:09:00 88 mm[Hg] Unive rsity of pressure [facility] Heart rate 2020-09-07 15:09:00 76 /min [facility] Body height 2020-09-07 15:09:00 160 cm [facility] Body weight 2020-09-07 15:09:00 114.306 kg [facility] BMI 2020-09-07 15:09:00 44.64 kg/m2 [facility] Respiratory rate 2020-08-02 16:44:00 20 /min [facility] Body height 2020-08-02 16:44:00 160 cm [facility] Body weight 2020-08-02 16:44:00 114.352 kg [facility] BMI 2020-08-02 16:44:00 44.66 kg/m2 [facility] Systolic blood 2020-08-02 16:44:00 113 mm[Hg] Univer sity of pressure [facility] Diastolic blood 2020-08-02 16:44:00 66 mm[Hg] Unive rsity of pressure [facility] Heart rate 2020-08-02 16:44:00 76 /min [facility] Body temperature 2020-08-02 16:44:00 36 Mera [facility] Systolic blood 2020-05-17 16:06:00 125 mm[Hg] [facility]iver [facility] Diastolic blood 2020-05-17 16:06:00 76 mm[Hg] Unive rsity of [facility] Heart rate 2020-05-17 16:06:00 93 /min [facility] Body temperature 2020-05-17 16:06:00 36.44 Mera [facility] Respiratory rate 2020-05-17 16:06:00 18 /min [facility] Body height 2020-05-17 16:06:00 160 cm [facility] Body weight 2020-05-17 16:06:00 105.688 kg [facility] BMI 2020-05-17 16:06:00 41.27 kg/m2 [facility] Systolic blood 2020-03-08 15:04:00 108 mm[Hg] Univer [facility]ity of pressure [facility] Diastolic blood 2020-03-08 15:04:00 69 mm[Hg] Unive rsity of pressure [facility] Heart rate 2020-03-08 15:04:00 74 /min [facility] Body temperature 2020-03-08 15:04:00 36.61 Mera [facility] Respiratory rate 2020-03-08 15:04:00 20 /min [facility] Body height 2020-03-08 15:04:00 160 cm [facility] Body weight 2020-03-08 15:04:00 112.583 kg [facility] BMI 2020-03-08 15:04:00 43.97 kg/m2 [facility] Systolic blood 2019-10-25 14:56:00 128 mm[Hg] Univer [facility]ity of pressure [facility] Diastolic blood 2019-10-25 14:56:00 92 mm[Hg] Unive rsity of pressure [facility] Heart rate 2019-10-25 14:56:00 72 /min [facility] Body temperature 2019-10-25 14:56:00 36.67 Mera [facility] Body height 2019-10-25 14:56:00 160 cm [facility] Body weight 2019-10-25 14:56:00 110.904 kg [facility] BMI 2019-10-25 14:56:00 43.31 kg/m2 [facility] Oxygen saturation in 2019-10-25 14:56:00 99 /min [facility] Systolic blood 2019-10-24 17:13:00 120 mm[Hg] Univer sity of pressure [facility] Diastolic blood 2019-10-24 17:13:00 81 mm[Hg] Unive rsity of pressure [facility] Heart rate 2019-10-24 17:13:00 75 /min [facility] Respiratory rate 2019-10-24 17:13:00 19 /min [facility] Body height 2019-10-24 17:13:00 160 cm [facility] Body weight 2019-10-24 17:13:00 110.133 kg [facility] BMI 2019-10-24 17:13:00 43.01 kg/m2 [facility] Oxygen saturation in 2019-10-24 17:13:00 99 /min [facility] blood by [email or web address] Systolic blood 2019-09-29 16:38:00 93 mm[Hg] Univer sity of pressure [facility] Diastolic blood 2019-09-29 16:38:00 64 mm[Hg] Unive rsity of pressure [facility] Heart rate 2019-09-29 16:38:00 77 /min [facility] Body temperature 2019-09-29 16:38:00 36.5 Mera [facility] 2019-09-29 16:38:00 20 /min [facility] Body height 2019-09-29 16:38:00 160 cm [facility] Body weight 2019-09-29 16:38:00 109.77 kg [facility] ty [facility] BMI 2019-09-29 16:38:00 42.87 kg/m2 [facility] Systolic blood 2019-04-28 14:39:00 105 mm[Hg] Univer sity of pressure [facility] Diastolic blood 2019-04-28 14:39:00 62 mm[Hg] [facility]ive [facility] Heart rate 2019-04-28 14:39:00 87 /min [facility] Body temperature 2019-04-28 14:39:00 36.94 Mera [facility] Respiratory rate 2019-04-28 14:39:00 18 /min [facility] Body height 2019-04-28 14:39:00 160 cm [facility]i ty [facility] Body weight 2019-04-28 14:39:00 123.832 kg Universi ty [facility] BMI 2019-04-28 14:39:00 48.36 kg/m2 [facility] BP Systolic 2022-09-10 11:46:00 168 mm[Hg] BP [...] Source Performed REFERRAL- 2020-09-27 06:01:00 Doctor Lucina, [facility] REQUEST/RESPONSE [facility] MR KNEE LEFT WO CONTRAST 2020-08-20 18:12:04 Alexandre Delgado [facility] NOTICE OF PRIVACY 2020-08-02 06:01:00 Doctor Verdugo, [facility] PRACTICES [facility] AGREEMENTS AUTHORIZATIONS 2020-08-02 06:01:00 Doctor Verdugo, [facility] AND IRREVOCABLE [facility] ASSIGNMENTS (FORM 2001) VACCINATIONS - CONSENTS, 2020-05-17 05:01:00 Doctor Verdugo [facility] ELIGIBILITY, HISTORY [facility] XR KNEE 3 VW LEFT 2020-03-16 13:13:36 Alexandre Delgado [facility] SCANNED LAB RESULTS 2020-03-08 05:01:00 Doctor Verdugo [facility] ASSIGNMENT OF BENEFITS 2020-02-10 13:57:41 [facility] - PRESCRIPTION / 2019-09-08 06:01:00 Doctor Verdugo [facility] ORDER [facility] AGREEMENTS AUTHORIZATIONS 2019-04-28 05:01:00 Doctor Unassigned, [facility] AND IRREVOCABLE [facility] ASSIGNMENTS (FORM 2001) [id number] Ecg Routine Ecg 2018-06-14 00:00:00 W/least 12 Lds W/i r Plan of Care Planned Activity Planned Date Details Comments Source Goal Plan of Care Note [code = 40866-1] Goal Plan of Care Note [code = 03941-4] Goal Plan of Care Note [code = 61190-8] Goal Plan of Care Note [code = 71148-7] Goal Plan of Care Note [code = 06558-3] Goal Plan of Care Note [code = 44724-4] Goal Plan of Care Note [code = 83334-9] Goal Plan of Care Note [code = 87070-4] Goal Plan of Care Note [code = 66527-4] Goal Plan of Care Note [code = 85680-3] Goal Plan of Care Note [code = 85002-7] Goal Plan of Care Note [code = 85703-0] Goal Plan of Care Note [code = 07549-2] Goal Plan of Care Note [code = 34667-3] Goal Plan of Care Note [code = 69006-2] Goal Plan of Care Note [code = 66007-2] Goal Plan of Care Note [code = 59471-6] Goal Plan of Care Note [code = 51867-0] Goal Plan of Care Note [code = 54583-8] Goal Plan of Care Note [code = 33156-3] Goal Plan of Care Note [code = 31746-1] Goal Plan of Care Note [code = 70856-3] Goal Plan of Care Note [code = 44831-9] Goal Plan of Care Note [code = 05080-8] Goal Plan of Care Note [code = 00950-7] Goal Plan of Care Note [code = 95322-9] Goal Plan of Care Note [code = 61527-9] Goal Plan of Care Note [code = 09649-1] Goal Plan of Care Note [code = 41318-3] Goal Plan of Care Note [code = 57815-6] Goal Plan of Care Note [code = 98867-5] Goal Plan of Care Note [code = 44254-3] Goal Plan of Care Note [code = 01464-7] Goal Plan of Care Note [code = 65250-0] Goal Plan of Care Note [code = 17152-7] Goal Plan of Care Note [code = 11281-2] Goal Plan of Care Note [code = 63681-2] Goal Plan of Care Note [code = 37315-1] Goal Plan of Care Note [code = 70552-2] Goal Plan of Care Note [code = 56182-3] Goal Plan of Care Note [code = 20806-0] Goal Plan of Care Note [code = 57361-6] Goal Plan of Care Note [code = 65358-9] Goal Plan of Care Note [code = 79457-6] Goal Plan of Care Note [code = 02303-9] Goal Plan of Care Note [code = 69670-0] Goal Plan of Care Note [code = 10105-0] Goal Plan of Care Note [code = 78239-1] Goal Plan of Care Note [code = 13419-9] Goal Plan of Care Note [code = 67777-6] Goal Plan of Care Note [code = 16198-5] Goal Plan of Care Note [code = 60525-7] Goal Plan of Care Note [code = 44247-3] Goal Plan of Care Note [code = 89645-4] Goal Plan of Care Note [code = 75766-2] Goal Plan of Care Note [code = 78815-3] Goal Plan of Care Note [code = 79472-9] Goal Plan of Care Note [code = 16160-4] Goal Plan of Care Note [code = 29584-9] Goal Plan of Care Note [code = 12955-2] Goal Plan of Care Note [code = 79336-4] Goal Plan of Care Note [code = 46772-5] Goal Plan of Care Note [code = 28626-4] Goal Plan of Care Note [code = 22853-6] Goal Plan of Care Note [code = 18570-2] Goal Plan of Care Note [code = 14702-2] Goal Plan of Care Note [code = 01693-1] Goal Plan of Care Note [code = 40440-9] Goal Plan of Care Note [code = 97763-8] Goal Plan of Care Note [code = 13138-8] Goal Plan of Care Note [code = 54767-0] Goal Plan of Care Note [code = 56241-8] Goal Plan of Care Note [code = 89745-6] Goal Plan of Care Note [code = 63177-9] Goal Plan of Care Note [code = 08334-5] Goal Plan of Care Note [code = 15171-0] Goal Plan of Care Note [code = 19122-2] Goal Plan of Care Note [code = 17578-3] Goal Plan of Care Note [code = 94193-5] Goal Plan of Care Note [code = 71181-2] Goal Plan of Care Note [code = 72304-3] Goal Plan of Care Note [code = 59739-3] Goal Plan of Care Note [code = 05582-4] Goal Plan of Care Note [code = 52505-0] Goal Plan of Care Note [code = 85414-0] Goal Plan of Care Note [code = 25089-0] Goal Plan of Care Note [code = 61110-3] Goal Plan of Care Note [code = 96818-4] Goal Plan of Care Note [code = 03585-1] Goal Plan of Care Note [code = 74261-8] Goal Plan of Care Note [code = 56573-3] Goal Plan of Care Note [code = 27963-4] Goal Plan of Care Note [code = 15906-1] Goal Plan of Care Note [code = 16173-0] Goal Plan of Care Note [code = 55186-5] Goal Plan of Care Note [code = 97998-4] Goal Plan of Care Note [code = 28867-0] Goal Plan of Care Note [code = 49543-0] Goal Plan of Care Note [code = 16065-9] Goal Plan of Care Note [code = 95275-6] Goal Plan of Care Note [code = 18561-6] Goal Plan of Care Note [code = 28363-8] Goal Plan of Care Note [code = 98514-5] Goal Plan of Care Note [code = 62749-4] Goal Plan of Care Note [code = 69535-3] Goal Plan of Care Note [code = 71224-7] Goal Plan of Care Note [code = 37323-9] Goal Plan of Care Note [code = 34891-4] Goal Plan of Care Note [code = 46495-8] Encounters Start End Encounter Admission Attending Care Care Encounter Source Date/Time Date/Time Type Type Clinicians Facility Department ID 2023-04-28 2023-04-28 Outpatient JELENA VICK [id number] Jelena 09:00:00 09:00:00 DARLIN Seybo ld 2023-04-16 2023-04-16 Outpatient JELENA STOKES [id number] Jelena 10:30:00 10:30:00 SPENSER Seybol d 2023-04-13 2023-04-13 Outpatient GAURAV PURVIS [id number] Jelena 10:30:00 10:30:00 Seybol d 2023-03-23 2023-03-23 Outpatient GAURAV PURVIS [id number] Jelena 10:30:00 10:30:00 Seybol d 2023-03-17 2023-03-17 Outpatient RUSSELL BOWLES [id number] Jelena 00:00:00 00:00:00 MD ANKITA Seybol d 2023-03-16 2023-03-16 Outpatient JELENA GARY [id number] Jelena 00:00:00 00:00:00 ROBYN Seybol d 2023-03-11 2023-03-11 Outpatient JELENA MAHER [id number] Jelena 11:15:00 11:15:00 AHMED Seybol d 2023-03-09 2023-03-09 Outpatient JELENA GARY [id number] Jelena 00:00:00 00:00:00 ROBYN Seybol d 2023-03-05 2023-03-05 Outpatient JELENA MAHER [id number] Jelena 00:00:00 00:00:00 AHMED Seybol d 2023-03-02 2023-03-02 Outpatient JELENA GARY [id number] Jelena 00:00:00 00:00:00 ROBYN Seybol d 2023-02-20 2023-02-20 Outpatient JELENA GARY [id number] Jelena 00:00:00 00:00:00 ROBYN Seybol d 2023-02-20 2023-02-20 Outpatient JELENA GARY [id number] Jelena 00:00:00 00:00:00 ROBYN Seybol d 2023-02-19 2023-02-19 Outpatient PREZAS JELENA BOWLES [id number] Jelena 00:00:00 00:00:00 BYRON Seybol d 2023-02-18 2023-02-18 Outpatient COOKIE JELENA BOWLES [id number] Jelena 11:00:00 11:00:00 ROBYN Seybol d 2023-02-16 2023-02-16 Outpatient JELENA GARY [id number] Jelena 00:00:00 00:00:00 ROBYN Seybol d 2023-02-06 2023-02-06 Outpatient JELENA NEVAREZ [id number] Jelena 00:00:00 00:00:00 LASUNDRA Seybo ld 2023-02-06 2023-02-06 Outpatient JELENA JOHN [id number] Jelena 00:00:00 00:00:00 SHANEIKA Seybo ld 2023-02-05 2023-02-05 Outpatient LAB90 JELENA BOWLES [id number] Jelena 09:10:00 09:10:00 Seybol d 2023-02-05 2023-02-05 Outpatient PRENIDAJELENA [id number] Jelena 00:00:00 00:00:00 BYRON Seybol d 2023-02-05 2023-02-05 Outpatient KAMILAJELENA [id number] Jelena 00:00:00 00:00:00 OLENA Seybol d 2023-02-02 2023-02-02 Outpatient JELENA STOKES [id number] Jelena 09:30:00 09:30:00 SPENSER Seybol d 2023-02-02 2023-02-02 Outpatient JELENA GARY [id number] Jelena 00:00:00 00:00:00 ROBYN Seybol d 2023-02-02 2023-02-02 Outpatient JELENA GARY [id number] Jelena 00:00:00 00:00:00 ROBYN Seybol d 2023-01-28 2023-01-28 Outpatient JELENA MAHER [id number] Jelena 11:00:00 11:00:00 AHMED Seybol d 2023-01-18 2023-01-18 Outpatient HUNDL, JELENA BOWLES [id number] Jelena 00:00:00 00:00:00 ROBYN Seybol d 2023-01-17 2023-01-17 Outpatient PREZAS, JELENA BOWLES [id number] Jelena 00:00:00 00:00:00 BYRON Seybol d 2023-01-14 2023-01-14 Outpatient HUNDL, JELENA BOWLES [id number] Jelena 00:00:00 00:00:00 ROBYN Seybol d 2023-01-07 2023-01-07 Outpatient HUNDL, JELENA BOWLES [id number] Jelena 00:00:00 00:00:00 ROBYN Seybol d 2023-01-06 2023-01-06 Outpatient KAWAR, GAURAV JELENA BOWLES [id number] Jelena 00:00:00 00:00:00 Seybol d 2023-01-06 2023-01-06 Outpatient HUNDL, JELENA BOWLES [id number] Jelena 00:00:00 00:00:00 ROBYN Seybol d 2023-01-06 2023-01-06 Outpatient MERRILL, JELENA BOWLES [id number] Jelena 00:00:00 00:00:00 JAROD Seybol d 2023-01-01 2023-01-01 Outpatient HUNDL, JELENA BOWLES [id number] Jelena 10:30:00 10:30:00 ROBYN Seybol d 2023-01-01 2023-01-01 Outpatient HUNDL, JELENA BOWLES [id number] Jelena 00:00:00 00:00:00 ROBYN Seybol d 2022-12-31 2022-12-31 Outpatient PLABPA JELENA BOWLES [id number] Jelena 09:00:00 09:00:00 Seybol d 2022-12-30 2022-12-30 Outpatient HUNDL, JELENA BOWLES [id number] Jelena 10:30:00 10:30:00 ROBYN Seybol d 2022-12-29 2022-12-29 Outpatient LAB90 JELENA BOWLES [id number] Jelena 11:20:00 11:20:00 Seybol d 2022-12-29 2022-12-29 Outpatient COOKIE JELENA BOWLES [id number] Jelena 10:30:00 10:30:00 ROBYN Seybol d 2022-12-29 2022-12-29 Outpatient COOKIE JELENA BOWLES [id number] Jelena 00:00:00 00:00:00 ROBYN Seybol d 2022-12-29 2022-12-29 Outpatient ANSELMO JELENA BOWLES [id number] Jelena 00:00:00 00:00:00 AHMED Seybol d 2022-12-26 2022-12-26 Outpatient PLABPA JELENA BOWLES [id number] Jelena 09:00:00 09:00:00 Seybol d 2022-12-26 2022-12-26 Outpatient MISA JELENA BOWLES [id number] Jelena 00:00:00 00:00:00 JENNIFER Seybol d 2022-12-26 2022-12-26 Outpatient JELENA MALHOTRA [id number] Jelena 00:00:00 00:00:00 BYRON Seybol d 2022-12-25 2022-12-25 Outpatient HYUNSIVADANDRE BOWLES [id number] Jelena 00:00:00 00:00:00 Seybol d 2022-12-24 2022-12-24 Outpatient PLABPA JELENA BOWLES [id number] Jelena 11:30:00 11:30:00 Seybol d 2022-12-22 2022-12-22 Outpatient GAURAV PURVIS [id number] Jelena 09:00:00 09:00:00 Seybol d 2022-12-22 2022-12-22 Outpatient COOKIE JELENA BOWLES [id number] Jelena 00:00:00 00:00:00 ROBYN Seybol d 2022-12-20 2022-12-20 Outpatient JELENA CRUZ [id number] Jelena 00:00:00 00:00:00 JALYN Seybol d 2022-12-19 2022-12-19 Outpatient JELENA MALHOTRA [id number] Jelena 00:00:00 00:00:00 BYRON Seybol d 2022-12-18 2022-12-18 Outpatient COOKIE JELENA BOWLES [id number] Jelena 00:00:00 00:00:00 ROBYN Seybol d 2022-12-18 2022-12-18 Outpatient COOKIE JELENA BOWLES [id number] Jelena 00:00:00 00:00:00 ROBYN Seybol d 2022-12-15 2022-12-15 Outpatient STEPHANIESEYONL JELENA BOWLES [id number] Jelena 00:00:00 00:00:00 MD ANKITA Seybol d 2022-12-15 2022-12-15 Outpatient JELENA MARTINEZ [id number] Jelena 00:00:00 00:00:00 MANOLO Seybol d 2022-12-15 2022-12-15 Outpatient JELENA GIVENS [id number] Jelena 00:00:00 00:00:00 GAUTAM Seybol d 2022-12-12 2022-12-12 Outpatient JELENA GIVENS [id number] Jelena 10:30:00 10:30:00 GAUTAM Seybol d 2022-12-12 2022-12-12 Outpatient JELENA BOWLES [id number] Jelena 00:00:00 00:00:00 Seybol d 2022-12-12 2022-12-12 Outpatient JELENA MALHOTRA [id number] Jelena 00:00:00 00:00:00 BYRON Seybol d 2022-12-11 2022-12-11 Outpatient JELENA MALHOTRA [id number] Jelena 00:00:00 00:00:00 BYRON Seybol d 2022-12-08 2022-12-08 Outpatient MERRILLJELENA [id number] Jelena 10:40:00 10:40:00 JAROD Seybol d 2022-12-08 2022-12-08 Outpatient JELENA BOWLES [id number] Jelena 10:25:00 10:25:00 Seybol d 2022-12-08 2022-12-08 Outpatient GAURAV PURVIS [id number] Jelena 08:30:00 08:30:00 Seybol d 2022-12-08 2022-12-08 Outpatient HUNDL, JELENA BOWLES [id number] Jelena 00:00:00 00:00:00 ROBYN Seybol d 2022-12-04 2022-12-04 Outpatient PREZAS, JELENA BOWLES [id number] Jelena 00:00:00 00:00:00 BYRON Seybol d 2022-12-04 2022-12-04 Outpatient MERRILL, JELENA BOWLES [id number] Jelena 00:00:00 00:00:00 JAROD Seybol d 2022-12-04 2022-12-04 Outpatient JELENA BOWLES [id number] Jelena 00:00:00 00:00:00 Seybol d 2022-12-04 2022-12-04 Outpatient HUNDL, JELENA BOWLES [id number] Jelena 00:00:00 00:00:00 ROBYN Seybol d 2022-12-01 2022-12-01 Outpatient FARIDAL, JELENA BOWLES [id number] Jelena 00:00:00 00:00:00 ROBYN Seybol d 2022-11-27 2022-11-[address], TECH JELENA BOWLES [id number] Jelena 10:30:00 10:30:00 Seybol d 2022-11-27 2022-11-27 Outpatient MYRADHA BOWLES [id number] Jelena 00:00:00 00:00:00 MD ANKITA Seybol d 2022-11-27 2022-11-27 Outpatient MYREYNOLDSEYONJessica BOWLES [id number] Jelena 00:00:00 00:00:00 MD ANKITA Seybol d 2022-11-21 2022-11-21 Outpatient HUNDL, JELENA BOWLES [id number] Jelena 00:00:00 00:00:00 ROBYN Seybol d 2022-11-20 2022-11-20 Outpatient SFA SFA [id number] Jarod 10:08:21 10:08:21 [id number] F Lee 2022-11-19 2022-11-19 Outpatient FARIDAL, JELENA BOWLES [id number] Jelena 00:00:00 00:00:00 ROBYN Seybol d 2022-11-14 2022-11-14 Outpatient FARIDAL, JELENA JELENA [id number] Jelena 00:00:00 00:00:00 ROBYN Seybol d 2022-11-14 2022-11-14 Outpatient JELENA BOWLES [id number] Jelena 00:00:00 00:00:00 Seybol d 2022-11-11 2022-11-11 Outpatient FARIDAL, JELENA BOWLES [id number] Jelena 00:00:00 00:00:00 ROBYN Seybol d 2022-11-07 2022-11-07 Outpatient NAVA JELENA BOWLES [id number] Jelena 00:00:00 00:00:00 DARLIN Seybo ld 2022-11-07 2022-11-07 Outpatient NAVA JELENA BOWLES [id number] Jelena 00:00:00 00:00:00 DARLIN Seybo ld 2022-11-07 2022-11-07 Outpatient NAVA JELENA BOWLES [id number] Jelena 00:00:00 00:00:00 DARLIN Seybo ld 2022-11-07 2022-11-07 Outpatient NAVA JELENA BOWLES [id number] Jelena 00:00:00 00:00:00 DARLIN Seybo ld 2022-11-07 2022-11-07 Outpatient COOKIE, JELENA BOWLES [id number] Jelena 00:00:00 00:00:00 ROBYN Seybol d 2022-11-07 2022-11-07 Outpatient FARIDAL, JELENA BOWLES [id number] Jelena 00:00:00 00:00:00 ROBYN Seybol d 2022-11-07 2022-11-07 Outpatient HUNDL, JELENA BOWLES [id number] Jelena 00:00:00 00:00:00 ROBYN Seybol d 2022-11-07 2022-11-07 Outpatient HUNDL, JELENA BOWLES [id number] Jelena 00:00:00 00:00:00 ROBYN Seybol d 2022-11-07 2022-11-07 Outpatient HUNDL, JELENA BOWLES [id number] Jelena 00:00:00 00:00:00 ROBYN Seybol d 2022-11-07 2022-11-07 Outpatient COOKIE JELENA BOWLES [id number] Jelena 00:00:00 00:00:00 ROBYN Seybol d 2022-10-30 2022-10-30 Outpatient SFA SFA [id number] Jarod 08:26:44 08:26:44 [id number] F Lee 2022-10-30 2022-10-30 Outpatient FARIDAJessica JELENA BOWLES [id number] Jelena 00:00:00 00:00:00 ROBYN Seybol d 2022-10-29 2022-10-29 Outpatient COOKIE JELENA BOWLES [id number] Jelena 00:00:00 00:00:00 ROBYN Seybol d 2022-10-29 2022-10-29 Outpatient FARIDAJessica JELENA BOWLES [id number] Jelena 00:00:00 00:00:00 ROBYN Seybol d 2022-10-29 2022-10-29 Outpatient FARIDAJessica JELENA BOWLES [id number] Jelena 00:00:00 00:00:00 ROBYN Seybol d 2022-10-29 2022-10-29 Outpatient VICKJELENA [id number] Jelena 00:00:00 00:00:00 DARLIN Seybo ld 2022-10-28 2022-10-28 Outpatient LAB47 JELENA BOWLES [id number] Jelena 09:45:00 09:45:00 Seybol d 2022-10-28 2022-10-28 Outpatient JELENA VICK [id number] Jelena 09:00:00 09:00:00 DARLIN Seybo ld 2022-10-23 2022-10-23 Outpatient FARIDAJessica JELENA BOWLES [id number] Jelena 00:00:00 00:00:00 ROBYN Seybol d 2022-10-22 2022-10-22 Outpatient JELENA GARY [id number] Jelena 08:00:00 08:00:00 ROBYN Seybol d 2022-10-13 2022-10-13 Outpatient SFA SFA [id number] Jarod 11:24:16 11:24:16 [id number] F Lee 2022-10-10 2022-10-10 Outpatient LAB90 JELENA BOWLES [id number] Jelena 09:25:00 09:25:00 Seybol d 2022-10-10 2022-10-10 Outpatient HUNDL, JELENA BOWLES [id number] Jelena 08:30:00 08:30:00 ROBYN Seybol d 2022-10-10 2022-10-10 Outpatient HUNDL, JELENA BOWLES [id number] Jelena 00:00:00 00:00:00 ROBYN Seybol d 2022-10-09 2022-10-09 Outpatient HUNDL, JELENA BOWLES [id number] Jelena 08:30:00 08:30:00 ROBYN Seybol d 2022-10-09 2022-10-09 Outpatient HUNDL, JELENA BOWLES [id number] Jelena 00:00:00 00:00:00 ROBYN Seybol d 2022-09-30 2022-09-30 Outpatient HUNDL, JELENA BOWLES [id number] Jelena 00:00:00 00:00:00 ROBYN Seybol d 2022-09-26 2022-09-26 Outpatient HUNDL, JELENA BOWLES [id number] Jelena 00:00:00 00:00:00 ROBYN Seybol d 2022-09-24 2022-09-24 Outpatient LAB90 JELENA BOWLES [id number] Jelena 17:05:00 17:05:00 Seybol d 2022-09-24 2022-09-24 Outpatient FARIDAL, JELENA BOWLES [id number] Jelena 11:00:00 11:00:00 ROBYN Seybol d 2022-09-22 2022-09-22 Outpatient SFA SFA [id number] Jarod 09:21:24 09:21:24 [id number] F Lee 2022-09-22 2022-09-22 Outpatient FARIDAL, JELENA BOWLES [id number] Jelena 00:00:00 00:00:00 ROBYN Seybol d 2022-09-17 2022-09-17 Outpatient HUNDL, JELENA BOWLES [id number] Jelena 00:00:00 00:00:00 ROBYN Seybol d 2022-09-12 2022-09-12 Outpatient JELENA GARYSEY [id number] Jelena 00:00:00 00:00:00 ROBYN Eatonol tierra 2022-09-11 2022-09-11 Outpatient JELENA GARY JELENA [id number] Jelena 00:00:00 00:00:00 ROBYN Eatonol tierra 2022-09-10 2022-09-10 Outpatient SFA SFA [id number] 023 Jarod 11:36:44 11:36:44 0111 F Lee 2022-09-10 2022-09-10 Outpatient [id number]- [id number] 3c [id number]-7 00:00:00 00:00:00 Visit 87da-47c3 7da-47c3-b -pm20-2k5 w88-9e5c4j [id number] p99409 2022-09-09 2022-09-09 Outpatient LAB90 JELENA JELENA [id number] Jelena 09:30:00 09:30:00 Chencho mayorga 2022-09-09 2022-09-09 Outpatient JELENA GARY JELENA [id number] Jelena 08:30:00 08:30:00 ROBYN Eatonol tierra 2022-09-09 2022-09-09 Outpatient JELENA GARY JELENA [id number] Jelena 00:00:00 00:00:00 ROBYN mayorga 2022-09-04 2022-09-04 Outpatient SFA SFA [id number] Jarod 08:29:33 08:29:33 0105 F Lee 2022-09-04 2022-09-04 Outpatient [id number]- [id number] 3f 62beff-3 00:00:00 00:00:00 Visit 0um3-6mk8 bd9-4ec7-b -bbc8-d95 bc8-d957ab [id number] 1b4409 2022-08-28 2022-08-28 Outpatient SFA SFA [id number] 022 Jarod 11:35:11 11:35:11 1229 F Lee 2022-08-28 2022-08-28 Outpatient [id number] 0d [id number] 00:00:00 00:00:00 Visit 010b-47c2 10b-47c2-b -v4d1-c38 3r3-h580r3 0c4496a4i 517b1b 2022-05-24 2022-05-24 emergency 820a3835- [id number] 15:15:00 18:38:00 2381-551e 81-551e-843 36 -843c-ca8 c-go1z5067b d9966j7ox 5eb 2022-03-15 2022-03-15 Outpatient AMBREEN_CONSTANTIN [facility] 761 [place] 10:56:00 10:56:00 HANA 0716 [facility] 2020-11-29 2020-11-29 [facility] [id number] Univers 15:30:00 15:30:00 ANNEMARIE klein f [facility] 2020-10-23 2020-10-23 Telephone Alexandre Delgado 1.2.840.114 [id number] Univers 00:00:00 00:00:00 [facility] 350.1.13.10 [place] [phone] [facility] [address] [place] 2020-10-23 2020-10-23 Telephone Alexandre Delgado 1.2.840.114 [id number] 00:00:00 00:00:00 COMMUNITY HEALTH 350.1.13.10 HEALTH 4.2.7.2.686 UNIT [id number] 362 2020-10-12 2020-10-12 Outpatient [facility] [id number] Univers 09:00:00 09:00:00 SHEY arshad [facility] 2020-09-27 2020-09-27 Orders Doctor PRIETO 1.2.840.114 [id number] Univers 00:00:00 00:00:00 Only UnassignedLESLEY 350.1.13.10 ity of [place] [facility] 4.2.7.2.686 Marvel as [phone] [facility] [address] 2020-09-27 2020-09-27 Orders Doctor CONNER 1.2.840.114 [id number] 00:00:00 00:00:00 Only UnassignedISABELY 350.1.13.10 [place] [facility] 4.2.7.2.686 [id number] 009 2020-09-20 2020-09-20 Telephone Tash [facility] 1.2.840.114 [id number] Univers 00:00:00 00:00:00 Shey Cabral 350.1.13.10 it y of Surgical 4.2.7.2.686 Marvel as Specialti [phone] Me dical es 198 [facility] 2020-09-20 2020-09-20 Telephone Tash [facility] 1.2.840.114 [id number] 00:00:00 00:00:00 Shey [facility] 350.1.13.10 Surgical 4.2.7.2.686 Specialti [id number] es [address] [place] 2020-09-07 2020-09-07 [facility] 1.2.660.038 [id number] Univers 09:03:53 09:52:26 Visit Shey Cabral 350.1.13.10 it y of Surgical 4.2.7.2.686 Marvel as Specialti [phone] Ne dical es 198 [facility] 2020-09-07 2020-09-07 Office [facility] 1.2.597.773 [id number] 09:03:53 09:52:26 Visit Shey Cabral 350.1.13.10 Surgical 4.2.7.2.686 Specialti [id number] es [address] [place] [address] 2020-09-07 2020-09-07 Outpatient R TASH [facility] [id number] Univers 09:00:00 09:00:00 SHEY tafoyaemmy [facility] 2020-08-30 2020-08-30 Outpatient R TASH [facility] [id number] Univers 08:30:00 08:30:00 SHEY tafoyaemmy [facility] 2020-08-20 2020-08-20 [facility] Alexandre Delgado [facility] 1.2.840.114 [id number] Univers 10:11:58 23:59:00 Encounter Health 350.1.13.10 it[place].2.[place] [phone] [facility] 8[address] Branch (CLC) 2020-08-20 2020-08-20 Outpatient R SANDY [facility] [id number] Univers 10:11:58 23:59:00 ity of [facility] 2020-08-16 2020-08-16 Refgreg [facility] 1.2.840.114 [id number] Univers 00:00:00 00:00:00 [facility] 350.1.13.10 it y of [place] 4.2.7.2.686 Marvel as Professio [phone] [facility] [address] [place] [address] One 2020-08-02 2020-08-02 Office Care, Ang Primary [place] 1.2.840 .114 [id number] Univers 10:40:31 12:20:58 Visit Alexandre Delgado [facility] 350.1.13.10 ity [facility] 4.2.7.2.686 [place] [facility] [phone] [facility] [address] 2020-08-02 2020-08-02 Outpatient Gracia DELGADO [facility] [id number] Univers 10:30:00 10:30:00 ity of [facility] 2020-08-02 2020-08-02 Orders Doctor CONNER 1.2.840.114 [id number] Univers 00:00:00 00:00:00 Only Unassigned, LESLEY 350.1.13.10 ity of [place] [facility] 4.2.7.2.686 Marvel as [id number] [facility] [address] 2020-05-31 2020-05-31 Outpatient Gracia LAMAR [facility] [id number] Univers 08:50:00 08:50:00 ILIANA itemmy [facility] 2020-05-24 2020-05-24 Outpatient Gracia DELGADO [facility] [id number] Univers 00:00:00 00:00:00 ity of [facility] 2020-05-22 2020-05-22 Outpatient Gracia [facility] [id number] Univers 09:50:00 09:50:00 [facility] 2020-05-17 2020-05-21 Office Care, Ang Primary [place] 1.2.840 .114 [id number] Univers 11:05:31 09:49:52 Visit Alexandre Delgado [facility] 350.1.13.10 ity [place] [id number] [facility] [address] [place] 2020-05-21 2020-05-21 Outpatient [facility] [id number] Univers 00:00:00 00:00:00 ity of [facility] 2020-05-17 2020-05-17 Outpatient R SANDY [facility] [id number] Univers 10:30:00 10:30:00 ity of [facility] 2020-05-17 2020-05-17 Orders Doctor CONNER 1.2.840.114 [id number] Univers 00:00:00 00:00:00 Only Unassigned, LESLEY 350.1.13.10 ity of [place] [facility] 4.2.7.2.686 Marvel as [id number] [address] 2020-05-08 2020-05-08 Outpatient R [facility] [id number] Univers 08:30:00 08:30:00 ANNEMARIE magaña [facility] 2020-05-08 2020-05-08 [facility] 1.2.840.114 [id number] Univers 07:05:41 07:35:41 ne Visit Annemarie AVILES 350.1.13.10 ity of CARE [place].2.[place].2.[place] CENTER AT [id number] Ne lawrencenargis [facility] 2020-05-01 2020-05-01 Outpatient Gracia [facility] [id number] Univers 09:30:00 09:30:00 ANNEMARIE magaña [facility] 2020-04-24 2020-04-24 Outpatient Gracia [facility] [id number] Univers 09:30:00 09:30:00 ANNEMARIE magaña [facility] 2020-03-08 2020-03-20 Office Care, Ang Primary [place] 1.2.840 .114 [id number] Univers 10:02:59 09:15:53 [facility] 350.1.13.10 ity of [place].2.[place] [id number] [place] [address] Branch 2020-03-16 2020-03-16 Hospital Alexandre Delgado [facility] 1.2.840.114 [id number] Univers 07:51:00 23:59:00 Encounter Hubert 350.1.13.10 ity of [place].2.[place] [id number] [facility] [address] 2020-03-16 2020-03-16 Outpatient R SANDYALEXANDRE [facility] [id number] Univers 00:00:00 00:00:00 ity of [facility] 2020-03-13 2020-03-13 Telephone Alexandre Delgado ROSY 1.2.840.114 [id number] Univers 00:00:00 00:00:00 COMM[facility]ITY [facility] 350.1.13.10 it y [place]2.[place] [phone] [address] 2020-03-08 2020-03-08 Outpatient R SANDYALEXANDRE [facility] [id number] Univers 10:00:00 10:00:00 ity of [facility] 2020-03-08 2020-03-08 Orders Doctor CONNER 1.2.840.114 [id number] Univers 00:00:00 00:00:00 Only Unassigned, LESLEY 350.1.13.10 ity of [place] [facility] 4.2.7.2.686 Marvel as [id number] [facility] [address] 2020-02-29 2020-02-29 Telephone Sandy Alexandreteodora GALLEGOS 1.2.840.114 [id number] Univers 00:00:00 00:00:00 COMMUNITY HEALTH 350.1.13.10 it y [place] [phone] [facility] [address] [place] 2020-02-14 2020-02-14 Telephone Fer [facility] 1.2.994.835 [id number] Univers 00:00:00 00:00:00 Dannie Gaspar 350.1.13.10 it[place].2.[place] Profess[place] [phone] Ne dical [facility] 059 [facility] 2020-02-10 2020-02-10 Outpatient R [facility] [id number] Univers 09:00:00 09:00:00 ity of [facility] 2020-02-10 2020-02-10 Orders Doctor CONNER 1.2.840.114 [id number] Univers 00:00:00 00:00:00 Only Unassigned, LESLEY 350.1.13.10 ity of [place] [facility] 4.2.7.2.686 Marvel as [id number] [facility] [address] [place] 2020-01-24 2020-01-24 Outpatient [facility] [id number] Univers 10:40:00 10:40:00 DANNIE michelety o f [facility] 2020-01-24 2020-01-24 Telemedici [facility] 1.2.840.114 [id number] Univers 07:57:10 08:17:10 ne Visit Dannie Gaspar 350.1.13.10 it[place].2.[place] Profess[place] [id number] Ne suman nal 059 [facility] 2020-01-18 2020-01-18 Outpatient R [facility] [id number] Univers 13:00:00 13:00:00 ity of [facility] 2019-11-10 2019-11-10 Telephone Alexandre Delgado 1.2.840.114 [id number] Univers 00:00:00 00:00:00 COMMUNITY HEALTH 350.1.13.10 it y of [place].2.[place] [id number] [facility] [address] [place] 2019-11-03 2019-11-03 Outpatient R ALEXANDRE DELGADO [facility] [id number] Univers 08:15:00 08:15:00 ity of [facility] 2019-10-25 2019-10-25 Office [facility] 1.2.840.114 [id number] Univers 08:48:06 09:27:18 Visit Annemarie AVILES 350.1.13.10 ity of [facility] 4.2.7.2.686 [place] CENTER AT [id number] Ne dical VICTORY 072 [facility] 2019-10-25 2019-10-25 Outpatient R [facility] [id number] Univers 09:00:00 09:00:00 ANNEMARIE arshad o f [facility] 2019-10-24 2019-10-24 Office [facility] 1.2.840.114 [id number] Univers 10:57:17 15:44:20 Visit aDnnie Gaspar 350.1.13.10 ity of [place].2.[place] Profess[place] [phone] Ne [facility] 059 [facility] 2019-10-24 2019-10-24 Outpatient R [facility] [id number] Univers 11:00:00 11:00:00 DANNIE pavithra klein gómez [facility] 2019-09-29 2019-09-29 Office Care, Aries [place] 1.2.840 .114 [id number] Univers 10:38:08 11:16:42 Visit Alexandre Delgado [facility] 350.1.13.10 ity of [place] [id number] [address] 2019-09-29 2019-09-29 Outpatient R ALEXANDRE DELGADO [facility] [id number] Univers 10:00:00 11:16:42 ity of [facility] 2019-09-14 2019-09-14 Telephone Alexandre Delgado ROSY 1.2.840.114 [id number] Univers 00:00:00 00:00:00 COMM[facility] 350.1.13.10 it y of [place] [id number] [facility] [address] [place] 2019-09-08 2019-09-08 Orders Doctor PRIETO 1.2.840.114 [id number] Univers 00:00:00 00:00:00 Only Unassigned, LESLEY 350.1.13.10 ity of [place] [facility] 4.2.7.2.686 Marvel as [id number] [facility] [address] 2019-05-05 2019-05-05 Telephone Alexandre Delgado ROSY 1.2.840.114 [id number] Univers 00:00:00 00:00:00 [facility] 350.1.13.10 it y of [place]2.[place] [id number] [address] 2019-04-28 2019-04-28 Office Care, Ang Primary [place] 1.2.840 .114 [id number] Univers 09:26:40 11:38:19 Visit Alexandre Delgado 350.1.13.10 ity of HE[place].2.[place] [id number] [facility] [address] 2019-04-28 2019-04-28 Orders Doctor CONNER 1.2.840.114 [id number] Univers 00:00:00 00:00:00 Only Unassigned, LESLEY 350.1.13.10 ity of [place] [facility] 4.2.7.2.686 Marvel as [phone] [facility] [address] Results Test Description Test Time Test Comments Results Result Comments Source TSH, THIRD GENERATION 2022-09-11 04:08:38 Test Item Value Reference Range Interpretation Comme nts TSH, THIRD GENERATION (test 2.060 UIU/ML 0.400-4.100 UNLESS OTHERWISE INDICATED, code = 2821) ALL TESTING PER FORMED ATCLINICAL PATH [facility], [place] [address] 0256 JOURNAL CLERK: Tracey COBB [id number] [place] [id number] COMPREHENSIVE METABOLIC [id number] 03:23:31 Test Item Value Reference Range Interpretation Comments GLUCOSE (test code = 80 MG/DL 70-99 2216) BUN (test code = 7 MG/DL 6-20 2207) CREATININE (test 0.55 MG/DL 0.60-1.30 L code = 2214) eGFR (2020 CKD-EPI) 127 >60 (test code = 63864) ML/MIN/1.73 CALC BUN/CREAT (test 13 RATIO 6-28 code = 2235) SODIUM (test code = 138 MEQ/L 274-063 4593) POTASSIUM (test code 3.9 MEQ/L 3.5-5.4 = 8) CHLORIDE (test code 104 MEQ/L 95-107 = 2215) CARBON DIOXIDE (test 21 MEQ/L -31 code = 2206) CALCIUM (test code = [...] U/L 5-40 2218) CBC W/AUTO DIFF WITH [id number] 02:00:05 Test Item Value Reference Range Interpretation [...] RBCS 0.00 K/UL 0.00-0.11 (test code = 09273) CT/NG, NAAT, [id number] 20:52:50 Test Item Value Reference Range Interpretation Comments GONORRHEA, NAAT NEGATIVE NEGATIVE Note: Testi ng is (test code = 82540) performe d with Emili EDEL 6800/8800 systems using real-time polymerase cali n reaction (PCR) method. CHLAMYDIA, NAAT NEGATIVE NEGATIVE Note: Testi ng is (test code = 19458) performe d with Emili EDEL 6800/8800 systems using real-time polymerase cali n reaction (PCR) method. HEPATITIS PANEL, [id number] 05:02:20 Test Item Value Reference Range Interpretation Comments HEPATITIS A IgM (test NON-REACTIVE NON-REACTIVE code = 20526) HEPATITIS B CORE IgM NON-REACTIVE NON-REACTIVE (test code = 4644) HEPATITIS B SURF AG NON-REACTIVE NON-REACTIVE (test code = 2739) HEPATITIS C ANTIBODY NON-REACTIVE NON-REACTIVE (test code = 4675) INTERPRETATION (NOTE) Hepatitis A HEPATITIS A: (test code sero logy shows no = 2552) evidence of acu te hepatitis A. INTERPRETATION (NOTE) Hepatitis B HEPATITIS B: (test code sero logy shows no = 54041) evidence of acu te hepatitis B and no indication of exposure to hepatitis B vir us in the previous alejandra eight months. INTERPRETATION (NOTE) Hepatitis C HEPATITIS C: (test code sero logy shows no = 32836) evidence of exposure to hepatitisC viru s at this time. I t can take up to 12 months after exposure tothe hepatitis C vir us for antibodies to become detectab le in the blood in certain patient s. HIV 1/2 4TH GEN, RFLX [id number] 05:02:20 Test Item Value Reference Range Interpretation Comments HIV 1/2 4TH GEN, NON-REACTIVE NON-REACTIVE UNLESS OTH ERWISE RFLX CONF (test INDICATED, A LL TESTING code = 3514) PERFORMED [facility] NICAL PATHOLOGY FOR[facility], [facility]. [address] [place] [id number] [place] [address] DIRECTOR: [place] AGUIRRE M.D. CLIA NUMBER [id number] CAP ACCREDITATION N O. [id number] RPR REFLEX TO T. PALLIDUM - [id number] 04:28:08 Test Item Value Reference Range Interpretation Comments RPR (test code = 33398) NON-REACTIVE NON-REACTIVE RPR TITER (test code = 3500) NOT INDIC. TITER NOT INDIC. CT/NG, TMA, [id number] 00:00:00 Test Item Value Reference Range Interpretation Comments GONORRHEA, NAAT (test code = 73600) NEGATIVE CHLAMYDIA, NAAT (test code = 61570) NEGATIVE CT/NG, TMA, [id number] 00:00:00 Test Item Value Reference Range Interpretation Comments GONORRHEA, NAAT (test code = 68378) NEGATIVE CHLAMYDIA, NAAT (test code = 86922) NEGATIVE RPR REFLEX TO T. PALLIDUM - [id number] 00:00:00 Test Item Value Reference Range Interpretation Comments RPR (test code = 64846) NON-REACTIVE RPR TITER (test code = 3500) NOT INDIC. TITER RPR REFLEX TO T. PALLIDUM - [id number] 00:00:00 Test Item Value Reference Range Interpretation Comments RPR (test code = 68906) NON-REACTIVE RPR TITER (test code = 3500) NOT INDIC. TITER ACUTE HEPATITIS [id number] 00:00:00 Test Item Value Reference Range Interpretation Comments HEPATITIS A IgM (test code = NON-REACTIVE 05877) HEPATITIS B CORE IgM (test code NON-REACTIVE = 9444) HEPATITIS B SURF AG (test code = NON-REACTIVE 4569) HEPATITIS C ANTIBODY (test code NON-REACTIVE = 7975) INTERPRETATION HEPATITIS A: (NOTE) (test code = 2552) INTERPRETATION HEPATITIS B: (NOTE) (test code = 94971) INTERPRETATION HEPATITIS C: (NOTE) (test code = 19812) ACUTE HEPATITIS [id number] 00:00:00 Test Item Value Reference Range Interpretation Comments HEPATITIS A IgM (test code = NON-REACTIVE 92015) HEPATITIS B CORE IgM (test code NON-REACTIVE = 4644) HEPATITIS B SURF AG (test code = NON-REACTIVE 2559) HEPATITIS C ANTIBODY (test code NON-REACTIVE = 4675) INTERPRETATION HEPATITIS A: (NOTE) (test code = 2552) INTERPRETATION HEPATITIS B: (NOTE) (test code = 65738) INTERPRETATION HEPATITIS C: (NOTE) (test code = 92077) HIV 1/2 4TH GEN, RFLX [id number] 00:00:00 Test Item Value Reference Range Interpretation Comments HIV 1/2 4TH GEN, RFLX CONF (test NON-REACTIVE code = 3514) HIV 1/2 4TH GEN, RFLX [id number] 00:00:00 Test Item Value Reference Range Interpretation Comments HIV 1/2 4TH GEN, RFLX CONF (test NON-REACTIVE code = 3514) VITAMIN D, 25 [id number] 03:25:23 Test Item Value Reference Range Interpretation [...] PERFORM ED ATCLINICAL PATH [facility], [place]. [address] [place] [address], [place] [address] LABORATORY DIRE CTOR: Rebeca COBB. CLIA NUMBER [id number] CAP ACCREDITATION N O. [id number] HIV 1/2 4TH GEN, RFLX [id number] 03:00:39 Test Item Value Reference Range Interpretation Comments HIV 1/2 4TH GEN, RFLX CONF (test NON-REACTIVE NON-REACTIVE code = 3514) HIV AB/AG COMBO RFLX [id number] 00:00:00 Test Item Value Reference Range Interpretation Comments HIV 1/2 4TH GEN, RFLX CONF (test NON-REACTIVE code = 3514) HIV AB/AG COMBO RFLX [id number] 00:00:00 Test Item Value Reference Range Interpretation Comments HIV 1/2 4TH GEN, RFLX CONF (test NON-REACTIVE code = 3514) VITAMIN D, 25 [id number] 00:00:00 Test Item Value Reference Range Interpretation Comments VITAMIN D, 25 OH (test code = 4958) 27 NG/ML VITAMIN D, 25 [id number] 00:00:00 Test Item Value Reference Range Interpretation Comments VITAMIN D, 25 OH (test code = 4958) 27 NG/ML HIV AB/AG COMBO RFLX [id number] 00:00:00 Test Item Value Reference Range Interpretation Comments HIV 1/2 4TH GEN, RFLX CONF (test NON-REACTIVE code = 3514) HIV AB/AG COMBO RFLX [id number] 00:00:00 Test Item Value Reference Range Interpretation Comments HIV 1/2 4TH GEN, RFLX CONF (test NON-REACTIVE code = 3514) VITAMIN D, 25 [id number] 00:00:00 Test Item Value Reference Range Interpretation Comments VITAMIN D, 25 OH (test code = 4958) 27 NG/ML VITAMIN D, 25 [id number] 00:00:00 Test Item Value Reference Range Interpretation Comments VITAMIN D, 25 OH (test code = 4958) 27 NG/ML HIV AB/AG COMBO RFLX [id number] 00:00:00 Test Item Value Reference Range Interpretation Comments HIV 1/2 4TH GEN, RFLX CONF (test NON-REACTIVE code = 3514) HIV AB/AG COMBO RFLX [id number] 00:00:00 Test Item Value Reference Range Interpretation Comments HIV 1/2 4TH GEN, RFLX CONF (test NON-REACTIVE code = 3514) VITAMIN D, 25 [id number] 00:00:00 Test Item Value Reference Range Interpretation Comments VITAMIN D, 25 OH (test code = 4958) 27 NG/ML VITAMIN D, 25 [id number] 00:00:00 Test Item Value Reference Range Interpretation Comments VITAMIN D, 25 OH (test code = 4958) 27 NG/ML TSH, THIRD [id number] 00:19:50 Test Item Value Reference Range Interpretation Comments TSH, THIRD GENERATION (test code 1.090 UIU/ML 0.400-4.100 = 2821) [id number] 00:00:00 Test Item Value Reference Range Interpretation Comments TSH, THIRD GENERATION (test code 1.090 UIU/ML = 2821) [id number] 00:00:00 Test Item Value Reference Range Interpretation Comments TSH, THIRD GENERATION (test code 1.090 UIU/ML = 2821) [id number] 00:00:00 Test Item Value Reference Range Interpretation Comments TSH, THIRD GENERATION (test code 1.090 UIU/ML = 2821) [id number] 00:00:00 Test Item Value Reference Range Interpretation Comments TSH, THIRD GENERATION (test code 1.090 UIU/ML = 2821) [id number] 00:00:00 Test Item Value Reference Range Interpretation Comments TSH, THIRD GENERATION (test code 1.090 UIU/ML = 2821) [id number] 00:00:00 Test Item Value Reference Range Interpretation Comments TSH, THIRD GENERATION (test code 1.090 UIU/ML = 2821) [id number] 00:00:00 Test Item Value Reference Range Interpretation Comments TSH, THIRD GENERATION (test code 1.090 UIU/ML = 2821) [id number] 00:00:00 Test Item Value Reference Range Interpretation Comments TSH, THIRD GENERATION (test code 1.090 UIU/ML = 2821) [id number] 00:00:00 Test Item Value Reference Range Interpretation Comments TSH, THIRD GENERATION (test code 1.090 UIU/ML = 2821) LIPID [id number] 23:59:41 Test Item Value Reference Range Interpretation [...] MOREINFORMATION , SEE CLIENT ANNOUNCE MENT AT [email or web address] RISK RATIO LDL/HDL 1.79 RATIO <3.22 (test code = 2238) COMPREHENSIVE METABOLIC [id number] 23:59:41 Test Item Value Reference Range Interpretation Comments GLUCOSE (test code = 77 MG/DL 70-99 2216) BUN (test code = 8 MG/DL 6-20 2207) CREATININE (test 0.67 MG/DL 0.60-1.30 EFFECTIVE code = 2214) 08/12/2021, [facility] HAS IMPLEMENTED THE NKF-ASN RECOMME NDED KD-EPI EGF R REFIT CALCULATI ON THAT DOES NOT INCLUDE A COEFFICIENT FOR RACE. FOR MORE INFORMATION, SE E ANNOUNCEMENT [email or web address] eGFR (2020 CKD-EPI) 122 >60 (test code = 20312) ML/MIN/1.73 CALC BUN/CREAT (test 12 RATIO 6-28 code = 2235) SODIUM (test code = 141 MEQ/L 964-438 0567) POTASSIUM (test code 4.0 MEQ/L 3.5-5.4 = [...] = 92 U/L 5-40 H 221) HEMOGLOBIN [id number] 03:14:31 Test Item Value Reference Range Interpretation Comments HEMOGLOBIN A1c (test code = 40754) 6.0 % 4.2-5.6 H CBC W/AUTO DIFF WITH [id number] 03:06:02 Test Item Value Reference Range Interpretation [...] RBCS 0.00 K/UL 0.00-0.11 (test code = 01691) CBC W/AUTO [id number] 00:00:00 Test Item Value Reference Range Interpretation [...] NUCLEATED RBCS (test code = 0.00 K/UL 43681) CBC W/AUTO [id number] 00:00:00 Test Item Value Reference Range Interpretation [...] NUCLEATED RBCS (test code = 0.00 K/UL 45667) CBC W/AUTO [id number] 00:00:00 Test Item Value Reference Range Interpretation [...] NUCLEATED RBCS (test code = 0.00 K/UL 42812) HEMOGLOBIN [id number] 00:00:00 Test Item Value Reference Range Interpretation Comments HEMOGLOBIN A1c (test code = 45762) 6.0 % HEMOGLOBIN [id number] 00:00:00 Test Item Value Reference Range Interpretation Comments HEMOGLOBIN A1c (test code = 99608) 6.0 % HEMOGLOBIN [id number] 00:00:00 Test Item Value Reference Range Interpretation Comments HEMOGLOBIN A1c (test code = 80676) 6.0 % LIPID [id number] 00:00:00 Test Item Value Reference Range Interpretation Comments CHOLESTEROL (test code = 2210) 124 MG/DL TRIGLYCERIDES (test code = 2232) 69 MG/DL HDL CHOLESTEROL (test code = 2220) 39 MG/DL CALC LDL CHOL (test code = 2237) 70 MG/DL RISK RATIO LDL/HDL (test code = 1.79 RATIO 2238) LIPID [id number] 00:00:00 Test Item Value Reference Range Interpretation Comments CHOLESTEROL (test code = 2210) 124 MG/DL TRIGLYCERIDES (test code = 2232) 69 MG/DL HDL CHOLESTEROL (test code = 2220) 39 MG/DL CALC LDL CHOL (test code = 2237) 70 MG/DL RISK RATIO LDL/HDL (test code = 1.79 RATIO 2238) COMPREHENSIVE METABOLIC [id number] 00:00:00 Test Item Value Reference Range Interpretation Comments GLUCOSE (test code = 2217) 77 MG/DL BUN (test code = 2208) 8 MG/DL CREATININE (test code = 2214) 0.67 MG/DL eGFR (2020 CKD-EPI) (test 122 ML/MIN/1.73 code = 75817) CALC BUN/CREAT (test code = 12 RATIO [...] code = 2219) 92 U/L COMPREHENSIVE METABOLIC [id number] 00:00:00 Test Item Value Reference Range Interpretation Comments GLUCOSE (test code = 2217) 77 MG/DL BUN (test code = 2208) 8 MG/DL CREATININE (test code = 2214) 0.67 MG/DL eGFR (2020 CKD-EPI) (test 122 ML/MIN/1.73 code = 75114) CALC BUN/CREAT (test code = 12 RATIO [...] code = 2219) 92 U/L CBC W/AUTO [id number] 00:00:00 Test Item Value Reference Range Interpretation [...] NUCLEATED RBCS (test code = 0.00 K/UL 04375) CBC W/AUTO [id number] 00:00:00 Test Item Value Reference Range Interpretation [...] NUCLEATED RBCS (test code = 0.00 K/UL 19852) CBC W/AUTO [id number] 00:00:00 Test Item Value Reference Range Interpretation [...] NUCLEATED RBCS (test code = 0.00 K/UL 80530) CBC W/AUTO [id number] 00:00:00 Test Item Value Reference Range Interpretation [...] NUCLEATED RBCS (test code = 0.00 K/UL 25682) HEMOGLOBIN [id number] 00:00:00 Test Item Value Reference Range Interpretation Comments HEMOGLOBIN A1c (test code = 20302) 6.0 % HEMOGLOBIN [id number] 00:00:00 Test Item Value Reference Range Interpretation Comments HEMOGLOBIN A1c (test code = 16596) 6.0 % HEMOGLOBIN [id number] 00:00:00 Test Item Value Reference Range Interpretation Comments HEMOGLOBIN A1c (test code = 33239) 6.0 % LIPID [id number] 00:00:00 Test Item Value Reference Range Interpretation Comments CHOLESTEROL (test code = 2210) 124 MG/DL TRIGLYCERIDES (test code = 2232) 69 MG/DL HDL CHOLESTEROL (test code = 2220) 39 MG/DL CALC LDL CHOL (test code = 2237) 70 MG/DL RISK RATIO LDL/HDL (test code = 1.79 RATIO 2238) LIPID [id number] 00:00:00 Test Item Value Reference Range Interpretation Comments CHOLESTEROL (test code = 2210) 124 MG/DL TRIGLYCERIDES (test code = 2232) 69 MG/DL HDL CHOLESTEROL (test code = 2220) 39 MG/DL CALC LDL CHOL (test code = 2237) 70 MG/DL RISK RATIO LDL/HDL (test code = 1.79 RATIO 2238) COMPREHENSIVE METABOLIC [id number] 00:00:00 Test Item Value Reference Range Interpretation Comments GLUCOSE (test code = 2217) 77 MG/DL BUN (test code = 2208) 8 MG/DL CREATININE (test code = 2214) 0.67 MG/DL eGFR (2020 CKD-EPI) (test 122 ML/MIN/1.73 code = 52276) CALC BUN/CREAT (test code = 12 RATIO [...] code = 2219) 92 U/L COMPREHENSIVE METABOLIC [id number] 00:00:00 Test Item Value Reference Range Interpretation Comments GLUCOSE (test code = 2217) 77 MG/DL BUN (test code = 2208) 8 MG/DL CREATININE (test code = 2214) 0.67 MG/DL eGFR (2020 CKD-EPI) (test 122 ML/MIN/1.73 code = 00815) CALC BUN/CREAT (test code = 12 RATIO [...] code = 2219) 92 U/L CBC W/AUTO [id number] 00:00:00 Test Item Value Reference Range Interpretation [...] NUCLEATED RBCS (test code = 0.00 K/UL 61555) CBC W/AUTO [id number] 00:00:00 Test Item Value Reference Range Interpretation [...] NUCLEATED RBCS (test code = 0.00 K/UL 54656) HEMOGLOBIN [id number] 00:00:00 Test Item Value Reference Range Interpretation Comments HEMOGLOBIN A1c (test code = 73934) 6.0 % HEMOGLOBIN [id number] 00:00:00 Test Item Value Reference Range Interpretation Comments HEMOGLOBIN A1c (test code = 32397) 6.0 % HEMOGLOBIN [id number] 00:00:00 Test Item Value Reference Range Interpretation Comments HEMOGLOBIN A1c (test code = 60191) 6.0 % LIPID [id number] 00:00:00 Test Item Value Reference Range Interpretation Comments CHOLESTEROL (test code = 2210) 124 MG/DL TRIGLYCERIDES (test code = 2232) 69 MG/DL HDL CHOLESTEROL (test code = 2220) 39 MG/DL CALC LDL CHOL (test code = 2237) 70 MG/DL RISK RATIO LDL/HDL (test code = 1.79 RATIO 2238) LIPID [id number] 00:00:00 Test Item Value Reference Range Interpretation Comments CHOLESTEROL (test code = 2210) 124 MG/DL TRIGLYCERIDES (test code = 2232) 69 MG/DL HDL CHOLESTEROL (test code = 2220) 39 MG/DL CALC LDL CHOL (test code = 2237) 70 MG/DL RISK RATIO LDL/HDL (test code = 1.79 RATIO 2238) COMPREHENSIVE METABOLIC [id number] 00:00:00 Test Item Value Reference Range Interpretation Comments GLUCOSE (test code = 2217) 77 MG/DL BUN (test code = 2208) 8 MG/DL CREATININE (test code = 2214) 0.67 MG/DL eGFR (2020 CKD-EPI) (test 122 ML/MIN/1.73 code = 21055) CALC BUN/CREAT (test code = 12 RATIO [...] code = 2219) 92 U/L COMPREHENSIVE METABOLIC [id number] 00:00:00 Test Item Value Reference Range Interpretation Comments GLUCOSE (test code = 2217) 77 MG/DL BUN (test code = 2208) 8 MG/DL CREATININE (test code = 2214) 0.67 MG/DL eGFR (2020 CKD-EPI) (test 122 ML/MIN/1.73 code = 90995) CALC BUN/CREAT (test code = 12 RATIO [...] 2219) 92 U/L MR KNEE LEFT WO [id number] 21:23:01 Stable MRI with lateral patellar subluxation [...] [facility] [id number] 00:00:00 Test Item Value Reference Range Interpretation Comments HCG, QUANTITATIVE (test code = <5 MIU/ML 2506) HCG, [id number] 00:00:00 Test Item Value Reference Range Interpretation Comments HCG, QUANTITATIVE (test code = <5 MIU/ML 2506) HCG, [id number] 00:00:00 Test Item Value Reference Range Interpretation Comments HCG, QUANTITATIVE (test code = <5 MIU/ML 2506) HCG, [id number] 00:00:00 Test Item Value Reference Range Interpretation Comments HCG, QUANTITATIVE (test code = <5 MIU/ML 2506) HCG, [id number] 00:00:00 Test Item Value Reference Range Interpretation Comments HCG, QUANTITATIVE (test code = <5 MIU/ML 2506) HCG, [id number] 00:00:00 Test Item Value Reference Range Interpretation Comments HCG, QUANTITATIVE (test code = <5 MIU/ML 2506) HCG, [id number] 00:00:00 Test Item Value Reference Range Interpretation Comments HCG, QUANTITATIVE (test code = <5 MIU/ML 2506) HCG, [id number] 00:00:00 Test Item Value Reference Range Interpretation Comments HCG, QUANTITATIVE (test code = <5 MIU/ML 2506) HCG, [id number] 00:00:00 Test Item Value Reference Range Interpretation Comments HCG, QUANTITATIVE (test code = <5 MIU/ML 2506) HCG, [id number] 00:00:00 Test Item Value Reference Range Interpretation Comments HCG, QUANTITATIVE (test TEST NOT PERFORMED code = 2506) MIU/ML HCG, [id number] 00:00:00 Test Item Value Reference Range Interpretation Comments HCG, QUANTITATIVE (test TEST NOT PERFORMED code = 2506) MIU/ML HCG, [id number] 00:00:00 Test Item Value Reference Range Interpretation Comments HCG, QUANTITATIVE (test TEST NOT PERFORMED code = 2506) MIU/ML HCG, [id number] 00:00:00 Test Item Value Reference Range Interpretation Comments HCG, QUANTITATIVE (test TEST NOT PERFORMED code = 2506) MIU/ML HCG, [id number] 00:00:00 Test Item Value Reference Range Interpretation Comments HCG, QUANTITATIVE (test TEST NOT PERFORMED code = 2506) MIU/ML HCG, [id number] 00:00:00 Test Item Value Reference Range Interpretation Comments HCG, QUANTITATIVE (test TEST NOT PERFORMED code = 2506) MIU/ML HCG, [id number] 00:00:00 Test Item Value Reference Range Interpretation Comments HCG, QUANTITATIVE (test TEST NOT PERFORMED code = 2506) MIU/ML HCG, [id number] 00:00:00 Test Item Value Reference Range Interpretation Comments HCG, QUANTITATIVE (test TEST NOT PERFORMED code = 2506) MIU/ML HCG, [id number] 00:00:00 Test Item Value Reference Range Interpretation Comments HCG, QUANTITATIVE (test TEST NOT PERFORMED code = 2506) MIU/ML CHLAMYDIA, AMPLIFIED, [id number] 00:00:00 Test Item Value Reference Range Interpretation Comments CHLAMYDIA, TMA (test code = 13693) NEGATIVE CHLAMYDIA, AMPLIFIED, [id number] 00:00:00 Test Item Value Reference Range Interpretation Comments CHLAMYDIA, TMA (test code = 99980) NEGATIVE GC, AMPLIFIED, [id number] 00:00:00 Test Item Value Reference Range Interpretation Comments GONORRHEA, TMA (test code = 30960) NEGATIVE GC, AMPLIFIED, [id number] 00:00:00 Test Item Value Reference Range Interpretation Comments GONORRHEA, TMA (test code = 77169) NEGATIVE CHLAMYDIA, AMPLIFIED, [id number] 00:00:00 Test Item Value Reference Range Interpretation Comments CHLAMYDIA, TMA (test code = 47537) NEGATIVE CHLAMYDIA, AMPLIFIED, [id number] 00:00:00 Test Item Value Reference Range Interpretation Comments CHLAMYDIA, TMA (test code = 08575) NEGATIVE GC, AMPLIFIED, [id number] 00:00:00 Test Item Value Reference Range Interpretation Comments GONORRHEA, TMA (test code = 79908) NEGATIVE GC, AMPLIFIED, [id number] 00:00:00 Test Item Value Reference Range Interpretation Comments GONORRHEA, TMA (test code = 24998) NEGATIVE CHLAMYDIA, AMPLIFIED, [id number] 00:00:00 Test Item Value Reference Range Interpretation Comments CHLAMYDIA, TMA (test code = 35019) NEGATIVE CHLAMYDIA, AMPLIFIED, [id number] 00:00:00 Test Item Value Reference Range Interpretation Comments CHLAMYDIA, TMA (test code = 55434) NEGATIVE GC, AMPLIFIED, [id number] 00:00:00 Test Item Value Reference Range Interpretation Comments GONORRHEA, TMA (test code = 96644) NEGATIVE GC, AMPLIFIED, [id number] 00:00:00 Test Item Value Reference Range Interpretation Comments GONORRHEA, TMA (test code = 45519) NEGATIVE HIV AB/AG COMBO RFLX [id number] 00:00:00 Test Item Value Reference Range Interpretation Comments HIV 1/2 4TH GEN, RFLX CONF (test NON-REACTIVE code = 3514) HIV AB/AG COMBO RFLX [id number] 00:00:00 Test Item Value Reference Range Interpretation Comments HIV 1/2 4TH GEN, RFLX CONF (test NON-REACTIVE code = 3514) ACUTE HEPATITIS [id number] 00:00:00 Test Item Value Reference Range Interpretation Comments HEPATITIS A IgM (test code = NON-REACTIVE 99670) HEPATITIS B CORE IgM (test code NON-REACTIVE = 4644) HEPATITIS B SURF AG (test code = NON-REACTIVE 4289) HEPATITIS C ANTIBODY (test code NON-REACTIVE = 4675) INTERPRETATION HEPATITIS A: (NOTE) (test code = 2552) INTERPRETATION HEPATITIS B: (NOTE) (test code = 35139) INTERPRETATION HEPATITIS C: (NOTE) (test code = 98539) ACUTE HEPATITIS [id number] 00:00:00 Test Item Value Reference Range Interpretation Comments HEPATITIS A IgM (test code = NON-REACTIVE 13206) HEPATITIS B CORE IgM (test code NON-REACTIVE = 4644) HEPATITIS B SURF AG (test code = NON-REACTIVE 2739) HEPATITIS C ANTIBODY (test code NON-REACTIVE = 4675) INTERPRETATION HEPATITIS A: (NOTE) (test code = 2552) INTERPRETATION HEPATITIS B: (NOTE) (test code = 44114) INTERPRETATION HEPATITIS C: (NOTE) (test code = 64123) [id number] 00:00:00 Test Item Value Reference Range Interpretation Comments RPR RESULT (test code = NON-REACTIVE 3501) RPR TITER (test code = 3500) NOT INDIC. TITER [id number] 00:00:00 Test Item Value Reference Range Interpretation Comments RPR RESULT (test code = NON-REACTIVE 3501) RPR TITER (test code = 3500) NOT INDIC. TITER [id number] 00:00:00 Test Item Value Reference Range Interpretation Comments RPR RESULT (test code = NON-REACTIVE 3501) RPR TITER (test code = 3500) NOT INDIC. TITER HIV AB/AG COMBO RFLX [id number] 00:00:00 Test Item Value Reference Range Interpretation Comments HIV 1/2 4TH GEN, RFLX CONF (test NON-REACTIVE code = 3514) HIV AB/AG COMBO RFLX [id number] 00:00:00 Test Item Value Reference Range Interpretation Comments HIV 1/2 4TH GEN, RFLX CONF (test NON-REACTIVE code = 3514) HIV AB/AG COMBO RFLX [id number] 00:00:00 Test Item Value Reference Range Interpretation Comments HIV 1/2 4TH GEN, RFLX CONF (test NON-REACTIVE code = 3514) ACUTE HEPATITIS [id number] 00:00:00 Test Item Value Reference Range Interpretation Comments HEPATITIS A IgM (test code = NON-REACTIVE 50897) HEPATITIS B CORE IgM (test code NON-REACTIVE = 4644) HEPATITIS B SURF AG (test code = NON-REACTIVE 2739) HEPATITIS C ANTIBODY (test code NON-REACTIVE = 4675) INTERPRETATION HEPATITIS A: (NOTE) (test code = 2552) INTERPRETATION HEPATITIS B: (NOTE) (test code = 36829) INTERPRETATION HEPATITIS C: (NOTE) (test code = 98081) ACUTE HEPATITIS [id number] 00:00:00 Test Item Value Reference Range Interpretation Comments HEPATITIS A IgM (test code = NON-REACTIVE 60486) HEPATITIS B CORE IgM (test code NON-REACTIVE = 4644) HEPATITIS B SURF AG (test code = NON-REACTIVE 2739) HEPATITIS C ANTIBODY (test code NON-REACTIVE = 4675) INTERPRETATION HEPATITIS A: (NOTE) (test code = 2552) INTERPRETATION HEPATITIS B: (NOTE) (test code = 85970) INTERPRETATION HEPATITIS C: (NOTE) (test code = 89946) [id number] 00:00:00 Test Item Value Reference Range Interpretation Comments RPR RESULT (test code = NON-REACTIVE 3501) RPR TITER (test code = 3500) NOT INDIC. TITER [id number] 00:00:00 Test Item Value Reference Range Interpretation Comments RPR RESULT (test code = NON-REACTIVE 3501) RPR TITER (test code = 3500) NOT INDIC. TITER [id number] 00:00:00 Test Item Value Reference Range Interpretation Comments RPR RESULT (test code = NON-REACTIVE 3501) RPR TITER (test code = 3500) NOT INDIC. TITER HIV AB/AG COMBO RFLX [id number] 00:00:00 Test Item Value Reference Range Interpretation Comments HIV 1/2 4TH GEN, RFLX CONF (test NON-REACTIVE code = 3514) ACUTE HEPATITIS [id number] 00:00:00 Test Item Value Reference Range Interpretation Comments HEPATITIS A IgM (test code = NON-REACTIVE 05737) HEPATITIS B CORE IgM (test code NON-REACTIVE = 4644) HEPATITIS B SURF AG (test code = NON-REACTIVE 2739) HEPATITIS C ANTIBODY (test code NON-REACTIVE = 4675) INTERPRETATION HEPATITIS A: (NOTE) (test code = 2552) INTERPRETATION HEPATITIS B: (NOTE) (test code = 79338) INTERPRETATION HEPATITIS C: (NOTE) (test code = 21992) ACUTE HEPATITIS [id number] 00:00:00 Test Item Value Reference Range Interpretation Comments HEPATITIS A IgM (test code = NON-REACTIVE 53013) HEPATITIS B CORE IgM (test code NON-REACTIVE = 4644) HEPATITIS B SURF AG (test code = NON-REACTIVE 2739) HEPATITIS C ANTIBODY (test code NON-REACTIVE = 4675) INTERPRETATION HEPATITIS A: (NOTE) (test code = 2552) INTERPRETATION HEPATITIS B: (NOTE) (test code = 79327) INTERPRETATION HEPATITIS C: (NOTE) (test code = 13230) [id number] 00:00:00 Test Item Value Reference Range Interpretation Comments RPR RESULT (test code = NON-REACTIVE 3501) RPR TITER (test code = 3500) NOT INDIC. TITER [id number] 00:00:00 Test Item Value Reference Range Interpretation Comments RPR RESULT (test code = NON-REACTIVE 3501) RPR TITER (test code = 3500) NOT INDIC. TITER [id number] 00:00:00 Test Item Value Reference Range Interpretation Comments RPR RESULT (test code = NON-REACTIVE 3501) RPR TITER (test code = 3500) NOT INDIC. TITER HIV AB/AG COMBO RFLX [id number] 00:00:00 Test Item Value Reference Range Interpretation Comments HIV 1/2 4TH GEN, RFLX CONF (test NON-REACTIVE code = 3514) HIV AB/AG COMBO RFLX [id number] 00:00:00 Test Item Value Reference Range Interpretation Comments HIV 1/2 4TH GEN, RFLX CONF (test NON-REACTIVE code = 3514) ACUTE HEPATITIS [id number] 00:00:00 Test Item Value Reference Range Interpretation Comments HEPATITIS A IgM (test code = NON-REACTIVE 80584) HEPATITIS B CORE IgM (test code NON-REACTIVE = 4644) HEPATITIS B SURF AG (test code = NON-REACTIVE 2739) HEPATITIS C ANTIBODY (test code NON-REACTIVE = 4675) HCV INDEX (test code = 16433) 0.13 INTERPRETATION HEPATITIS A: (NOTE) (test code = 2552) INTERPRETATION HEPATITIS B: (NOTE) (test code = 62910) INTERPRETATION HEPATITIS C: (NOTE) (test code = 63797) ACUTE HEPATITIS [id number] 00:00:00 Test Item Value Reference Range Interpretation Comments HEPATITIS A IgM (test code = NON-REACTIVE 24451) HEPATITIS B CORE IgM (test code NON-REACTIVE = 4644) HEPATITIS B SURF AG (test code = NON-REACTIVE 2739) HEPATITIS C ANTIBODY (test code NON-REACTIVE = 4675) HCV INDEX (test code = 85061) 0.13 INTERPRETATION HEPATITIS A: (NOTE) (test code = 2552) INTERPRETATION HEPATITIS B: (NOTE) (test code = 44250) INTERPRETATION HEPATITIS C: (NOTE) (test code = 92980) GC AND CHLAMYDIA, AMPLIFIED, [id number] 00:00:00 Test Item Value Reference Range Interpretation Comments GONORRHEA, TMA (test code = 59198) NEGATIVE CHLAMYDIA, TMA (test code = 64919) NEGATIVE GC AND CHLAMYDIA, AMPLIFIED, [id number] 00:00:00 Test Item Value Reference Range Interpretation Comments GONORRHEA, TMA (test code = 98690) NEGATIVE CHLAMYDIA, TMA (test code = 31353) NEGATIVE [id number] 00:00:00 Test Item Value Reference Range Interpretation Comments RPR RESULT (test code = NON-REACTIVE 3501) RPR TITER (test code = 3500) NOT INDIC. TITER [id number] 00:00:00 Test Item Value Reference Range Interpretation Comments RPR RESULT (test code = NON-REACTIVE 3501) RPR TITER (test code = 3500) NOT INDIC. TITER [id number] 00:00:00 Test Item Value Reference Range Interpretation Comments RPR RESULT (test code = NON-REACTIVE 3501) RPR TITER (test code = 3500) NOT INDIC. TITER HIV AB/AG COMBO RFLX [id number] 00:00:00 Test Item Value Reference Range Interpretation Comments HIV 1/2 4TH GEN, RFLX CONF (test NON-REACTIVE code = 3514) HIV AB/AG COMBO RFLX [id number] 00:00:00 Test Item Value Reference Range Interpretation Comments HIV 1/2 4TH GEN, RFLX CONF (test NON-REACTIVE code = 3514) HIV AB/AG COMBO RFLX [id number] 00:00:00 Test Item Value Reference Range Interpretation Comments HIV 1/2 4TH GEN, RFLX CONF (test NON-REACTIVE code = 3514) ACUTE HEPATITIS [id number] 00:00:00 Test Item Value Reference Range Interpretation Comments HEPATITIS A IgM (test code = NON-REACTIVE 75626) HEPATITIS B CORE IgM (test code NON-REACTIVE = 4644) HEPATITIS B SURF AG (test code = NON-REACTIVE 2739) HEPATITIS C ANTIBODY (test code NON-REACTIVE = 4675) HCV INDEX (test code = 68327) 0.13 INTERPRETATION HEPATITIS A: (NOTE) (test code = 2552) INTERPRETATION HEPATITIS B: (NOTE) (test code = 79925) INTERPRETATION HEPATITIS C: (NOTE) (test code = 46928) ACUTE HEPATITIS [id number] 00:00:00 Test Item Value Reference Range Interpretation Comments HEPATITIS A IgM (test code = NON-REACTIVE 11262) HEPATITIS B CORE IgM (test code NON-REACTIVE = 4644) HEPATITIS B SURF AG (test code = NON-REACTIVE 2739) HEPATITIS C ANTIBODY (test code NON-REACTIVE = 4675) HCV INDEX (test code = 37696) 0.13 INTERPRETATION HEPATITIS A: (NOTE) (test code = 2552) INTERPRETATION HEPATITIS B: (NOTE) (test code = 02390) INTERPRETATION HEPATITIS C: (NOTE) (test code = 20074) HIV AB/AG COMBO RFLX [id number] 00:00:00 Test Item Value Reference Range Interpretation Comments HIV 1/2 4TH GEN, RFLX CONF (test NON-REACTIVE code = 3514) GC AND CHLAMYDIA, AMPLIFIED, [id number] 00:00:00 Test Item Value Reference Range Interpretation Comments GONORRHEA, TMA (test code = 30690) NEGATIVE CHLAMYDIA, TMA (test code = 80289) NEGATIVE GC AND CHLAMYDIA, AMPLIFIED, [id number] 00:00:00 Test Item Value Reference Range Interpretation Comments GONORRHEA, TMA (test code = 20280) NEGATIVE CHLAMYDIA, TMA (test code = 89278) NEGATIVE [id number] 00:00:00 Test Item Value Reference Range Interpretation Comments RPR RESULT (test code = NON-REACTIVE 3501) RPR TITER (test code = 3500) NOT INDIC. TITER [id number] 00:00:00 Test Item Value Reference Range Interpretation Comments RPR RESULT (test code = NON-REACTIVE 3501) RPR TITER (test code = 3500) NOT INDIC. TITER [id number] 00:00:00 Test Item Value Reference Range Interpretation Comments RPR RESULT (test code = NON-REACTIVE 3501) RPR TITER (test code = 3500) NOT INDIC. TITER ACUTE HEPATITIS [id number] 00:00:00 Test Item Value Reference Range Interpretation Comments HEPATITIS A IgM (test code = NON-REACTIVE 57815) HEPATITIS B CORE IgM (test code NON-REACTIVE = 4644) HEPATITIS B SURF AG (test code = NON-REACTIVE 2739) HEPATITIS C ANTIBODY (test code NON-REACTIVE = 4675) HCV INDEX (test code = 88136) 0.13 INTERPRETATION HEPATITIS A: (NOTE) (test code = 2552) INTERPRETATION HEPATITIS B: (NOTE) (test code = 16717) INTERPRETATION HEPATITIS C: (NOTE) (test code = 58222) ACUTE HEPATITIS [id number] 00:00:00 Test Item Value Reference Range Interpretation Comments HEPATITIS A IgM (test code = NON-REACTIVE 47039) HEPATITIS B CORE IgM (test code NON-REACTIVE = 4644) HEPATITIS B SURF AG (test code = NON-REACTIVE 2739) HEPATITIS C ANTIBODY (test code NON-REACTIVE = 4675) HCV INDEX (test code = 07030) 0.13 INTERPRETATION HEPATITIS A: (NOTE) (test code = 2552) INTERPRETATION HEPATITIS B: (NOTE) (test code = 97289) INTERPRETATION HEPATITIS C: (NOTE) (test code = 92973) GC AND CHLAMYDIA, AMPLIFIED, [id number] 00:00:00 Test Item Value Reference Range Interpretation Comments GONORRHEA, TMA (test code = 83048) NEGATIVE CHLAMYDIA, TMA (test code = 00839) NEGATIVE GC AND CHLAMYDIA, AMPLIFIED, [id number] 00:00:00 Test Item Value Reference Range Interpretation Comments GONORRHEA, TMA (test code = 63712) NEGATIVE CHLAMYDIA, TMA (test code = 10060) NEGATIVE [id number] 00:00:00 Test Item Value Reference Range Interpretation Comments RPR RESULT (test code = NON-REACTIVE 3501) RPR TITER (test code = 3500) NOT INDIC. TITER [id number] 00:00:00 Test Item Value Reference Range Interpretation Comments RPR RESULT (test code = NON-REACTIVE 3501) RPR TITER (test code = 3500) NOT INDIC. TITER [id number] 00:00:00 Test Item Value Reference Range Interpretation Comments RPR RESULT (test code = NON-REACTIVE 3501) RPR TITER (test code = 3500) NOT INDIC. TITER [id number] 00:00:00 Test Item Value Reference Range Interpretation Comments RPR RESULT (test code = NON-REACTIVE 3501) RPR TITER (test code = 3500) NOT INDIC. TITER [id number] 00:00:00 Test Item Value Reference Range Interpretation Comments RPR RESULT (test code = NON-REACTIVE 3501) RPR TITER (test code = 3500) NOT INDIC. TITER [id number] 00:00:00 Test Item Value Reference Range Interpretation Comments RPR RESULT (test code = NON-REACTIVE 3501) RPR TITER (test code = 3500) NOT INDIC. TITER HIV AB/AG COMBO RFLX [id number] 00:00:00 Test Item Value Reference Range Interpretation Comments HIV 1/2 4TH GEN, RFLX CONF (test NON-REACTIVE code = 3514) HIV AB/AG COMBO RFLX [id number] 00:00:00 Test Item Value Reference Range Interpretation Comments HIV 1/2 4TH GEN, RFLX CONF (test NON-REACTIVE code = 3514) [id number] 00:00:00 Test Item Value Reference Range Interpretation Comments RPR RESULT (test code = NON-REACTIVE 3501) RPR TITER (test code = 3500) NOT INDIC. TITER [id number] 00:00:00 Test Item Value Reference Range Interpretation Comments RPR RESULT (test code = NON-REACTIVE 3501) RPR TITER (test code = 3500) NOT INDIC. TITER [id number] 00:00:00 Test Item Value Reference Range Interpretation Comments RPR RESULT (test code = NON-REACTIVE 3501) RPR TITER (test code = 3500) NOT INDIC. TITER [id number] 00:00:00 Test Item Value Reference Range Interpretation Comments RPR RESULT (test code = NON-REACTIVE 3501) RPR TITER (test code = 3500) NOT INDIC. TITER HIV AB/AG COMBO RFLX [id number] 00:00:00 Test Item Value Reference Range Interpretation Comments HIV 1/2 4TH GEN, RFLX CONF (test NON-REACTIVE code = 3514) HIV AB/AG COMBO RFLX [id number] 00:00:00 Test Item Value Reference Range Interpretation Comments HIV 1/2 4TH GEN, RFLX CONF (test NON-REACTIVE code = 3514) [id number] 00:00:00 Test Item Value Reference Range Interpretation Comments RPR RESULT (test code = NON-REACTIVE 3501) RPR TITER (test code = 3500) NOT INDIC. TITER [id number] 00:00:00 Test Item Value Reference Range Interpretation Comments RPR RESULT (test code = NON-REACTIVE 3501) RPR TITER (test code = 3500) NOT INDIC. TITER HIV AB/AG COMBO RFLX [id number] 00:00:00 Test Item Value Reference Range Interpretation Comments HIV 1/2 4TH GEN, RFLX CONF (test NON-REACTIVE code = 3514) HIV AB/AG COMBO RFLX [id number] 00:00:00 Test Item Value Reference Range Interpretation Comments HIV 1/2 4TH GEN, RFLX CONF (test NON-REACTIVE code = 3514) GC AND CHLAMYDIA, AMPLIFIED, [id number] 00:00:00 Test Item Value Reference Range Interpretation Comments GONORRHEA, TMA (test code = 56233) NEGATIVE CHLAMYDIA, TMA (test code = 64342) NEGATIVE GC AND CHLAMYDIA, AMPLIFIED, [id number] 00:00:00 Test Item Value Reference Range Interpretation Comments GONORRHEA, TMA (test code = 36373) NEGATIVE CHLAMYDIA, TMA (test code = 67350) NEGATIVE GC AND CHLAMYDIA, AMPLIFIED, [id number] 00:00:00 Test Item Value Reference Range Interpretation Comments GONORRHEA, TMA (test code = 45892) NEGATIVE CHLAMYDIA, TMA (test code = 64682) NEGATIVE GC AND CHLAMYDIA, AMPLIFIED, [id number] 00:00:00 Test Item Value Reference Range Interpretation Comments GONORRHEA, TMA (test code = 89048) NEGATIVE CHLAMYDIA, TMA (test code = 83741) NEGATIVE GC AND CHLAMYDIA, AMPLIFIED, [id number] 00:00:00 Test Item Value Reference Range Interpretation Comments GONORRHEA, TMA (test code = 21814) NEGATIVE CHLAMYDIA, TMA (test code = 45869) NEGATIVE GC AND CHLAMYDIA, AMPLIFIED, [id number] 00:00:00 Test Item Value Reference Range Interpretation Comments GONORRHEA, TMA (test code = 55831) NEGATIVE CHLAMYDIA, TMA (test code = 10156) NEGATIVE COMPREHENSIVE METABOLIC [id number] 00:00:00 Test Item Value Reference Range Interpretation Comments GLUCOSE (test code = 2217) 127 MG/DL BUN (test code = 2208) 5 MG/DL CREATININE (test code = 2214) 0.58 MG/DL eGFR AMER. (test code 148 ML/MIN/1.73 = 70295) eGFR NON- AMER. (test 128 ML/MIN/1.73 code = 73287) CALC BUN/CREAT (test code = 9 RATIO [...] code = 2219) 18 U/L COMPREHENSIVE METABOLIC [id number] 00:00:00 Test Item Value Reference Range Interpretation Comments GLUCOSE (test code = 2217) 127 MG/DL BUN (test code = 2208) 5 MG/DL CREATININE (test code = 2214) 0.58 MG/DL eGFR AMER. (test code 148 ML/MIN/1.73 = 46595) eGFR NON- AMER. (test 128 ML/MIN/1.73 code = 44647) CALC BUN/CREAT (test code = 9 RATIO [...] (test code = 2219) 18 U/L LIPID [id number] 00:00:00 Test Item Value Reference Range Interpretation Comments CHOLESTEROL (test code = 2210) 186 MG/DL TRIGLYCERIDES (test code = 2232) 106 MG/DL HDL CHOLESTEROL (test code = 2220) 54 MG/DL CALC LDL CHOL (test code = 2237) 111 MG/DL RISK RATIO LDL/HDL (test code = 2.05 RATIO 2238) LIPID [id number] 00:00:00 Test Item Value Reference Range Interpretation Comments CHOLESTEROL (test code = 2210) 186 MG/DL TRIGLYCERIDES (test code = 2232) 106 MG/DL HDL CHOLESTEROL (test code = 2220) 54 MG/DL CALC LDL CHOL (test code = 2237) 111 MG/DL RISK RATIO LDL/HDL (test code = 2.05 RATIO 2238) COMPREHENSIVE METABOLIC [id number] 00:00:00 Test Item Value Reference Range Interpretation Comments GLUCOSE (test code = 2217) 127 MG/DL BUN (test code = 2208) 5 MG/DL CREATININE (test code = 2214) 0.58 MG/DL eGFR AMER. (test code 148 ML/MIN/1.73 = 14625) eGFR NON- AMER. (test 128 ML/MIN/1.73 code = 44202) CALC BUN/CREAT (test code = 9 RATIO [...] code = 2219) 18 U/L COMPREHENSIVE METABOLIC [id number] 00:00:00 Test Item Value Reference Range Interpretation Comments GLUCOSE (test code = 2217) 127 MG/DL BUN (test code = 2208) 5 MG/DL CREATININE (test code = 2214) 0.58 MG/DL eGFR AMER. (test code 148 ML/MIN/1.73 = 64289) eGFR NON- AMER. (test 128 ML/MIN/1.73 code = 19225) CALC BUN/CREAT (test code = 9 RATIO [...] code = 2219) 18 U/L COMPREHENSIVE METABOLIC [id number] 00:00:00 Test Item Value Reference Range Interpretation Comments GLUCOSE (test code = 2217) 127 MG/DL BUN (test code = 2208) 5 MG/DL CREATININE (test code = 2214) 0.58 MG/DL eGFR AMER. (test code 148 ML/MIN/1.73 = 76393) eGFR NON- AMER. (test 128 ML/MIN/1.73 code = 90642) CALC BUN/CREAT (test code = 9 RATIO [...] (test code = 2219) 18 U/L LIPID [id number] 00:00:00 Test Item Value Reference Range Interpretation Comments CHOLESTEROL (test code = 2210) 186 MG/DL TRIGLYCERIDES (test code = 2232) 106 MG/DL HDL CHOLESTEROL (test code = 2220) 54 MG/DL CALC LDL CHOL (test code = 2237) 111 MG/DL RISK RATIO LDL/HDL (test code = 2.05 RATIO 2238) LIPID [id number] 00:00:00 Test Item Value Reference Range Interpretation Comments CHOLESTEROL (test code = 2210) 186 MG/DL TRIGLYCERIDES (test code = 2232) 106 MG/DL HDL CHOLESTEROL (test code = 2220) 54 MG/DL CALC LDL CHOL (test code = 2237) 111 MG/DL RISK RATIO LDL/HDL (test code = 2.05 RATIO 2238) COMPREHENSIVE METABOLIC [id number] 00:00:00 Test Item Value Reference Range Interpretation Comments GLUCOSE (test code = 2217) 127 MG/DL BUN (test code = 2208) 5 MG/DL CREATININE (test code = 2214) 0.58 MG/DL eGFR AMER. (test code 148 ML/MIN/1.73 = 59370) eGFR NON- AMER. (test 128 ML/MIN/1.73 code = 09567) CALC BUN/CREAT (test code = 9 RATIO [...] (test code = 2219) 18 U/L LIPID [id number] 00:00:00 Test Item Value Reference Range Interpretation Comments CHOLESTEROL (test code = 2210) 186 MG/DL TRIGLYCERIDES (test code = 2232) 106 MG/DL HDL CHOLESTEROL (test code = 2220) 54 MG/DL CALC LDL CHOL (test code = 2237) 111 MG/DL RISK RATIO LDL/HDL (test code = 2.05 RATIO 2238) LIPID [id number] 00:00:00 Test Item Value Reference Range Interpretation Comments CHOLESTEROL (test code = 2210) 186 MG/DL TRIGLYCERIDES (test code = 2232) 106 MG/DL HDL CHOLESTEROL (test code = 2220) 54 MG/DL CALC LDL CHOL (test code = 2237) 111 MG/DL RISK RATIO LDL/HDL (test code = 2.05 RATIO 2238) GC AND CHLAMYDIA, AMPLIFIED, [id number] 00:00:00 Test Item Value Reference Range Interpretation Comments GONORRHEA, TMA (test code = 74846) NEGATIVE CHLAMYDIA, TMA (test code = 61168) NEGATIVE GC AND CHLAMYDIA, AMPLIFIED, [id number] 00:00:00 Test Item Value Reference Range Interpretation Comments GONORRHEA, TMA (test code = 57585) NEGATIVE CHLAMYDIA, TMA (test code = 91745) NEGATIVE GC AND CHLAMYDIA, AMPLIFIED, [id number] 00:00:00 Test Item Value Reference Range Interpretation Comments GONORRHEA, TMA (test code = 04597) NEGATIVE CHLAMYDIA, TMA (test code = 74462) NEGATIVE GC AND CHLAMYDIA, AMPLIFIED, [id number] 00:00:00 Test Item Value Reference Range Interpretation Comments GONORRHEA, TMA (test code = 97213) NEGATIVE CHLAMYDIA, TMA (test code = 43248) NEGATIVE GC AND CHLAMYDIA, AMPLIFIED, [id number] 00:00:00 Test Item Value Reference Range Interpretation Comments GONORRHEA, TMA (test code = 13026) NEGATIVE CHLAMYDIA, TMA (test code = 52077) NEGATIVE GC AND CHLAMYDIA, AMPLIFIED, [id number] 00:00:00 Test Item Value Reference Range Interpretation Comments GONORRHEA, TMA (test code = 87145) NEGATIVE CHLAMYDIA, TMA (test code = 83337) NEGATIVE VAGINAL PATHOGENS DNA [id number] 00:00:00 Test Item Value Reference Range Interpretation Comments YOKO SPECIES (test code = 34527) POSITIVE G. VAGINALIS (test code = 42474) NEGATIVE T. VAGINALIS (test code = 98418) NEGATIVE VAGINAL PATHOGENS DNA [id number] 00:00:00 Test Item Value Reference Range Interpretation Comments YOKO SPECIES (test code = 07129) POSITIVE G. VAGINALIS (test code = 75139) NEGATIVE T. VAGINALIS (test code = 69479) NEGATIVE VAGINAL PATHOGENS DNA [id number] 00:00:00 Test Item Value Reference Range Interpretation Comments YOKO SPECIES (test code = 65720) POSITIVE G. VAGINALIS (test code = 42744) NEGATIVE T. VAGINALIS (test code = 80303) NEGATIVE VAGINAL PATHOGENS DNA [id number] 00:00:00 Test Item Value Reference Range Interpretation Comments YOKO SPECIES (test code = 46420) POSITIVE G. VAGINALIS (test code = 89666) NEGATIVE T. VAGINALIS (test code = 94753) NEGATIVE VAGINAL PATHOGENS DNA [id number] 00:00:00 Test Item Value Reference Range Interpretation Comments YOKO SPECIES (test code = 55737) POSITIVE G. VAGINALIS (test code = 81757) NEGATIVE T. VAGINALIS (test code = 99291) NEGATIVE VAGINAL PATHOGENS DNA [id number] 00:00:00 Test Item Value Reference Range Interpretation Comments YOKO SPECIES (test code = 35981) POSITIVE G. VAGINALIS (test code = 59657) NEGATIVE T. VAGINALIS (test code = 38383) NEGATIVE GC AND CHLAMYDIA, AMPLIFIED, [id number] 00:00:00 Test Item Value Reference Range Interpretation Comments GONORRHEA, TMA (test code = 78731) NEGATIVE CHLAMYDIA, TMA (test code = 68740) NEGATIVE GC AND CHLAMYDIA, AMPLIFIED, [id number] 00:00:00 Test Item Value Reference Range Interpretation Comments GONORRHEA, TMA (test code = 84559) NEGATIVE CHLAMYDIA, TMA (test code = 66206) NEGATIVE GC AND CHLAMYDIA, AMPLIFIED, [id number] 00:00:00 Test Item Value Reference Range Interpretation Comments GONORRHEA, TMA (test code = 26907) NEGATIVE CHLAMYDIA, TMA (test code = 68711) NEGATIVE GC AND CHLAMYDIA, AMPLIFIED, [id number] 00:00:00 Test Item Value Reference Range Interpretation Comments GONORRHEA, TMA (test code = 86780) NEGATIVE CHLAMYDIA, TMA (test code = 96585) NEGATIVE GC AND CHLAMYDIA, AMPLIFIED, [id number] 00:00:00 Test Item Value Reference Range Interpretation Comments GONORRHEA, TMA (test code = 69462) NEGATIVE CHLAMYDIA, TMA (test code = 28021) NEGATIVE GC AND CHLAMYDIA, AMPLIFIED, [id number] 00:00:00 Test Item Value Reference Range Interpretation Comments GONORRHEA, TMA (test code = 95798) NEGATIVE CHLAMYDIA, TMA (test code = 80540) NEGATIVE CULTURE, [id number] 00:00:00 Test Item Value Reference Range Interpretation Comments CULTURE, URINE (test SPECIMEN NUMBER: code = 76019) [id number] CULTURE, [id number] 00:00:00 Test Item Value Reference Range Interpretation Comments CULTURE, URINE (test SPECIMEN NUMBER: code = 72989) [id number] CULTURE, [id number] 00:00:00 Test Item Value Reference Range Interpretation Comments CULTURE, URINE (test SPECIMEN NUMBER: code = 74555) [id number] CULTURE, [id number] 00:00:00 Test Item Value Reference Range Interpretation Comments CULTURE, URINE (test SPECIMEN NUMBER: code = 48403) [id number] CULTURE, [id number] 00:00:00 Test Item Value Reference Range Interpretation Comments CULTURE, URINE (test SPECIMEN NUMBER: code = 54099) [id number] CULTURE, [id number] 00:00:00 Test Item Value Reference Range Interpretation Comments CULTURE, URINE (test SPECIMEN NUMBER: code = 72731) [id number] HEMOGLOBIN [id number] 00:00:00 Test Item Value Reference Range Interpretation Comments HEMOGLOBIN A1c (test code = 30567) 5.5 % HEMOGLOBIN [id number] 00:00:00 Test Item Value Reference Range Interpretation Comments HEMOGLOBIN A1c (test code = 52582) 5.5 % HEMOGLOBIN [id number] 00:00:00 Test Item Value Reference Range Interpretation Comments HEMOGLOBIN A1c (test code = 51670) 5.5 % CBC W/AUTO [id number] 00:00:00 Test Item Value Reference Range Interpretation [...] code = 1015) 310 K/UL CBC W/AUTO [id number] 00:00:00 Test Item Value Reference Range Interpretation [...] code = 1015) 310 K/UL CBC W/AUTO [id number] 00:00:00 Test Item Value Reference Range Interpretation [...] code = 1015) 310 K/UL COMPREHENSIVE METABOLIC [id number] 00:00:00 Test Item Value Reference Range Interpretation Comments GLUCOSE (test code = 2217) 73 MG/DL BUN (test code = 2208) 10 MG/DL CREATININE (test code = 2214) 0.51 MG/DL eGFR AMER. (test code 158 ML/MIN/1.73 = 24023) eGFR NON- AMER. (test 136 ML/MIN/1.73 code = 52653) CALCULATED BUN/CREAT (test 20 RATIO code = [...] code = 2219) 23 U/L COMPREHENSIVE METABOLIC [id number] 00:00:00 Test Item Value Reference Range Interpretation Comments GLUCOSE (test code = 2217) 73 MG/DL BUN (test code = 2208) 10 MG/DL CREATININE (test code = 2214) 0.51 MG/DL eGFR AMER. (test code 158 ML/MIN/1.73 = 72604) eGFR NON- AMER. (test 136 ML/MIN/1.73 code = 21923) CALCULATED BUN/CREAT (test 20 RATIO code = [...] (test code = 221) 23 U/L LIPID [id number] 00:00:00 Test Item Value Reference Range Interpretation Comments CHOLESTEROL (test code = 2210) 167 MG/DL TRIGLYCERIDES (test code = 2232) 109 MG/DL HDL CHOLESTEROL (test code = 2220) 58 MG/DL CALCULATED LDL CHOL (test code = 87 MG/DL 2236) RISK RATIO LDL/HDL (test code = 1.50 RATIO 2238) LIPID [id number] 00:00:00 Test Item Value Reference Range Interpretation [...] (test code = 2821) 1.5 UIU/ML HEMOGLOBIN [id number] 00:00:00 Test Item Value Reference Range Interpretation Comments HEMOGLOBIN A1c (test code = 99733) 5.5 % HEMOGLOBIN [id number] 00:00:00 Test Item Value Reference Range Interpretation Comments HEMOGLOBIN A1c (test code = 90517) 5.5 % HEMOGLOBIN [id number] 00:00:00 Test Item Value Reference Range Interpretation Comments HEMOGLOBIN A1c (test code = 98579) 5.5 % HEMOGLOBIN [id number] 00:00:00 Test Item Value Reference Range Interpretation Comments HEMOGLOBIN A1c (test code = 42835) 5.5 % HEMOGLOBIN [id number] 00:00:00 Test Item Value Reference Range Interpretation Comments HEMOGLOBIN A1c (test code = 97460) 5.5 % CBC W/AUTO [id number] 00:00:00 Test Item Value Reference Range Interpretation [...] code = 1015) 310 K/UL CBC W/AUTO [id number] 00:00:00 Test Item Value Reference Range Interpretation [...] code = 1015) 310 K/UL CBC W/AUTO [id number] 00:00:00 Test Item Value Reference Range Interpretation [...] code = 1015) 310 K/UL COMPREHENSIVE METABOLIC [id number] 00:00:00 Test Item Value Reference Range Interpretation Comments GLUCOSE (test code = 2217) 73 MG/DL BUN (test code = 2208) 10 MG/DL CREATININE (test code = 2214) 0.51 MG/DL eGFR AMER. (test code 158 ML/MIN/1.73 = 85902) eGFR NON- AMER. (test 136 ML/MIN/1.73 code = 96228) CALCULATED BUN/CREAT (test 20 RATIO code = [...] code = 2219) 23 U/L COMPREHENSIVE METABOLIC [id number] 00:00:00 Test Item Value Reference Range Interpretation Comments GLUCOSE (test code = 2217) 73 MG/DL BUN (test code = 2208) 10 MG/DL CREATININE (test code = 2214) 0.51 MG/DL eGFR AMER. (test code 158 ML/MIN/1.73 = 30200) eGFR NON- AMER. (test 136 ML/MIN/1.73 code = 65861) CALCULATED BUN/CREAT (test 20 RATIO code = [...] (test code = 2219) 23 U/L LIPID [id number] 00:00:00 Test Item Value Reference Range Interpretation Comments CHOLESTEROL (test code = 2210) 167 MG/DL TRIGLYCERIDES (test code = 2232) 109 MG/DL HDL CHOLESTEROL (test code = 2220) 58 MG/DL CALCULATED LDL CHOL (test code = 87 MG/DL 2236) RISK RATIO LDL/HDL (test code = 1.50 RATIO 2238) LIPID [id number] 00:00:00 Test Item Value Reference Range Interpretation [...] (test code = 2821) 1.5 UIU/ML HEMOGLOBIN [id number] 00:00:00 Test Item Value Reference Range Interpretation Comments HEMOGLOBIN A1c (test code = 71506) 5.5 % CBC W/AUTO [id number] 00:00:00 Test Item Value Reference Range Interpretation [...] code = 1015) 310 K/UL CBC W/AUTO [id number] 00:00:00 Test Item Value Reference Range Interpretation [...] code = 1015) 310 K/UL CBC W/AUTO [id number] 00:00:00 Test Item Value Reference Range Interpretation [...] code = 1015) 310 K/UL COMPREHENSIVE METABOLIC [id number] 00:00:00 Test Item Value Reference Range Interpretation Comments GLUCOSE (test code = 2217) 73 MG/DL BUN (test code = 2208) 10 MG/DL CREATININE (test code = 2214) 0.51 MG/DL eGFR AMER. (test code 158 ML/MIN/1.73 = 58762) eGFR NON- AMER. (test 136 ML/MIN/1.73 code = 87421) CALCULATED BUN/CREAT (test 20 RATIO code = [...] code = 2219) 23 U/L COMPREHENSIVE METABOLIC [id number] 00:00:00 Test Item Value Reference Range Interpretation Comments GLUCOSE (test code = 2217) 73 MG/DL BUN (test code = 2208) 10 MG/DL CREATININE (test code = 2214) 0.51 MG/DL eGFR AMER. (test code 158 ML/MIN/1.73 = 43088) eGFR NON- AMER. (test 136 ML/MIN/1.73 code = 78925) CALCULATED BUN/CREAT (test 20 RATIO code = [...] (test code = 2219) 23 U/L LIPID [id number] 00:00:00 Test Item Value Reference Range Interpretation Comments CHOLESTEROL (test code = 2210) 167 MG/DL TRIGLYCERIDES (test code = 2232) 109 MG/DL HDL CHOLESTEROL (test code = 2220) 58 MG/DL CALCULATED LDL CHOL (test code = 87 MG/DL 2236) RISK RATIO LDL/HDL (test code = 1.50 RATIO 2238) LIPID [id number] 00:00:00 Test Item Value Reference Range Interpretation [...] TSH (test code = 2821) 1.5 UIU/ML History and Physical Notes Date/Time Note Provider Source 2023-03-11 10:20:10-00:00 Formatting of this note is d ifferent from the original. [facility] Images from the original note were not included. [facility] Carlie Maher MD, OLVIN Spencer PA-C, MPAS ASSESSMENT 1. Chronic pain of both knees 2. Fibromyalgia Blood Thinners: NSAIDs PLAN Pt Declined Psych referral PT:No SURGERY:No MEDS: Opioids: Anti-epileptic drugs Muscle Relaxant: NSAIDs (OTC or Rx) Other: INJECTIONS: No TODAY: Continue meds as deemed necessary per PCP Cont w psych for schizophren ia, borderlne d/o, bipolar d/o on abilify, cymbalta H/o SI and was admitted in the past Pt Declined Physical therapy, due finance cont FMS mgt w rheum Seen Dr. Turpin, discuss w Dr. Turpin if knee inj is indicated Pt Declined further ortho surgery consult, BMI 5 0 Pt appears sedated and slow speech, opiates not indicated D/c neurontin 100mg, no efficacy Continue Topamax 50mg Start 1 po q 12 hrs. Denies glaucoma or kidney problems, pt is aware decrease efficac y of control taking in combination w topamax, pt reports she is not sexual active. At this point I am concerned using any form of opiates given her psychiatric co morbidities and psychotic medications causing slow reaction time and extreme sedation her pain complaints are very sporadi c in knees and then claims a ll over FMS type pains I recommended to patient to see Dr Turpin again if a knee IA injection is deemed warranted Pt lives near [facility] and witnessed per Brian Spencer PA-C Patient was instructed to ge t future needed refills of Topamax from PCP there is no indicated need for patient to continue following up with pain management Significant education provid ed today on diagnosis, conservative management options, injections, and when surgical consultation is indicated. Patient agrees with current plan and management options as described below. Recommend routine physical Continue bowel management Patient instructed to continue with home exercis e program. Patient instructed to go to nearest ER if developed any sudden weakness in the extremities or sudden bowel and/or bladder incontinence. Pt's chart and history were reviewed; physical exam have been updated with no significant changes of the above chronic pain noted. Chief complaint or Subjective: Area of pain : Knee(s): bilateral What is the duration of your pain? constantly Kind of pain (quality):Dull, Aching What makes it worse? Standing, Walking Do you have any - WEAKNESS Bilateral LOWER extr emity NUMBNESS Bilateral LOWER extremity Changes in pattern of pain or weakness? No Current modalities for pain management: Rest Functional Status: Requires assitance with: mobility: assistive device usage: wheelchair: manual Routine physical within the past year? YES HISTORY: Carlos Rodriguez is a adult, with PMH of: Degenerative Joint Disease FMS under the care of rheum BMI:?50.84 borderlne d/o, bipolar d/o under the care of psy ch on abilify, cymbalta H/o SI and was admitted Complaining of Knee(s): bila teral, with chronic intermittet muscle spasms,spontaneously. Denies any recent bowel or b ladder incontinence or rentention, saddle paresthesia, or sexual dysfunction Denies fever, chills, uninte ntional weight loss or any associated constiutional changes. Denies any suicide thoughts or ideation, diagnosed with followed by psychiatrist. Conservative teatments inclu ding trial of PT, OTC analgesics, and non opioid medications without relief. has been evaluated by radha hamlin (spine, ortho, or neurosurgeon) for consultation. Currently, takes Medications per day for pain re lief. Patients are not exibiting s jonathan effects from listed medication(s) above. Patient maintains a bowel management regimen of fiber diet, OTC laxatives, or stool softeners. Medication enable pt to function with activities of daily living. As of this visit, pt has bee n compliant with pain medications with no apparent signs of abuse or misuse of opioid pain medication. Ref per No ref. provider fo und for Pain Mgt eval for chronic arthritis in amy knees but also fibromyalgia. She has been seen by rheumatology. HPI Interval since last visit: 03/11/2023: Topamax is helpi ng better than Neurontin she continues to be extremely sedated with her psych polypharmacy Topamax did NOT worsen her alertness Here for routine med RFs, no SE w meds. With current treatment of p ain meds and injections, pt is able to function with ADLs, activities of daily living. Physical Exam: GENERAL: Not in acute distre ss, well developed, well nourished very sedated with very heavy speech and reaction time HEAD Normocephalic, atraumatic Pupils: without miosis or mydriasis CERVICAL Decreased AROM/PROM with pain Alignment: normal, cervical lordosis UPPER EXTREMITIES Motor: C5-T1 myotomes bilateral 5/5 WRIST/HAND Heberden's nodules: absent THORACIC/LUMBAR Decreased AROM/PROM with pain Alignment: Blunted lordosis LOWER EXTREMITIES Motor: Myotomes L3-S1 bilateral 5/5 KNEE ROM: decreased bilateral NEUROLOGICAL Gait: patient uses wheelchair for mobility PSYCH Mood: Depressed and Flat affect Pain behavior: none Diagnostic studies: MR KNEE LEFT WO CONTRAST 08/20/2020 Stable MRI with lateral patellar subluxation wit h chronic thinning/sprain of the medial patellofemoral retinaculum suspect ed. Mild contusion over the medial aspect of the pat denisha which may represent sequela from a prior lateral patellofemoral disl ocation and relocation. Preliminary Report Dictated by Resident: Jolie Rao I, Alex Birmingham MD., have reviewed this study and agree with the above report. Narrative EXAM: MR KNEE LEFT WO CONTRAST HISTORY: 25 years-old Female intermittent chroni c knee pain. Patient have a recent episode with sharp pain after a leg press . COMPARISON: Plain radiograph from 03/16/2020, steff browne MR 10/22/2017. TECHNIQUE AND FINDINGS: 1.5 Josselin ?multiplanar multi weighted MR imaging of the left knee was performed without contrast. BONE AND JOINT: The patellofemoral compartment: Lateral patellar subluxation is present. Grade 1 chondral loss of the lateral patellar an d femoral?articular surfaces. Medial compartment: The chondral surfaces are in tact. Lateral compartment: The chondral surfaces are i ntact. Bone marrow: Mild T2 bone marrow signal intensit y increase is seen at the medial margin of the patella. No focal lesions o r fractures are present. No suprapatellar joint effusion is present. MENISCI: Medial meniscus: Intact Lateral meniscus: Intact LIGAMENTS AND TENDONS: The is attenuation of the medial patellofemoral retinaculum with mild thickening of the lateral patellofemoral retinac ulum. The extensor mechanism, cruciate ligaments, medial collateral ligament and lateral collateral ligamentous complex, iliotibial band, popliteus and biceps femoris tendons are intact. SOFT TISSUES: No muscle atrophy is demonstrated. No solid soft tissue masses are present. KNEE ROUTINE 10-39 YEARS BILATERAL 12/08/2022 10:40 AM Result Narrative: Examination: KNEE ROUTINE 10-39 YEARS BILATERAL CLINICAL INDICATION:bilateral knee pain. Comparison: None Findings/impression: 25-50% medial compartmental narrowing is present bilaterally. No evidence of fracture or dislocation. Soft tissues are normal. A1C: Results for orders placed or performed in visit on 09/09/22 HGB A1C WITH MBG ESTIMATION Result Value Ref Range HEMOGLOBIN A1C 5.6 4.8 - 5.6 % ESTIM. AVG GLU (EAG) 114 mg/dL *The following may be discussed with patient bas ed on pt's treatment plan: Opiate Risk Tool Scorin-3 Low risk: 6% change of developing problemati c behaviors 4-7 Moderate risk: 28% change of developing prob lematic behaviors >=8 High risk: >90% change of developing problem atic behaviors Goals of Therapy: Improve ambulation, quality of life, minimize medications, improve sleep pattern, increase level of activities, return to work, or improve ability to work. Patient understands their responsibility of th eir involvement to achieve t he above goals, better quality of life, better function, and possible pain control. Patient also understands the nature of chronic pain and disease process. Options: Conservative options have be en reviewed and discussed in detail. These include additional physical therapy, medication, exercise conditioning, and weight loss. Interventional treatment options include e pidural steroid injections, sacroiliac injections, medial branch block, or radiofrequency ablation. The patient has decided to proceed with interventional injection therapy. We discussed the role of sveta paulie consult as well. That decision was deferred at this time. Risks: Risks of conservative treatm ent were discussed and include progression of the underlying condition, including permanent or increased neurological sequelae. Risks of interventional inje ction treatment were also reviewed in detail and include , hemorrhage, infection, nerve damage, paralysis, recurrence, worsening or non-resolution of symptoms, dural tea r, dural puncture headache, meningitis. No guarantees were given. Certain components of the symptoms may not resolve as a result of interventional injection therapy. Patient is aware that spinal injecti on with varies types of iwona icosteroids is not FDA approved. The patient agrees to proceed with this treatment recommendation. Counseling Given: The diagnosis, prognosis, tr eatment options, risks; alternatives were discussed in detail using language understandable to this patient. Questions have been elicited and all questions have been answered to the patient s satisfaction in understandable terms. Realistic reassurance has been given to the patient regarding any fears or anxieties expressed today. Risks, benefits and options of recommended interventional procedures a nd proposed treatments were discussed. Preoperative instructions were reviewed including the use of anticoagulants. The patient was instructed to call if any change in medica l status occurs, including infections which may necessitate schedule changes. Opiate Controlled Substance Therapy Requirements : Urine Drug Screen: Agree to submit to urine and/or blood screening tests to detect the use of non-prescribed medications, inappropriate pain medication, (including alcohol) or illicit drugs at any time. Psychology Clearance: Opiate controlled substance therapy for chronic pain represents a complex problem that may benefit from physical therapy, psychotherapy, and behavioral medicine strategies. Safety: Patient is aware rosalba t driving is prohibited while using opiate medications, muscle relaxants, antidepressants, or antiepileptics. Patients are prohibited to u se any sedative hypnotics or sleeping aid, benzodiazepines or barbiturates while on medications from the pain clinic. Controlled substance medicat ions should be in a locked, inaccessible to others, including children. Medication therapy of opiate controlled substance, muscle relaxant, antidepressant, antiepileptic, benzodiazepine, tranquilizer, or sedative may cause: 1. Psychological dependence (addiction) to contr olled substances that will require participation in any treatment program prescribed at facilities, which may include; ?? detoxification and/or ?? psychological, and medical treatment 2. multiple side effects include: - respiratory depression or failure that may nader d to sudden . - intractable constipation that may cause bowel impaction or obstruction, which may require surgery. - urinary retention that may lead to renal probl ems - decrease of hormone levels with possible impot ence, decreased libido, or sexual dysfunction. - Methadone or various antid epressants may cause heart arrhythmias that may lead to . - withdrawal symptoms such as, abdominal cramps, sweats, chills, generalized aching, and sudden . - sedation caused by medicat ions: opiates (oral, patch, or infusion pump) muscle relaxants, anti-epileptic, benzodiazapines, antidepressants, sedatives, and/or tranquilizer s, the drug environmental inspector, recommends not operating ANY machinery or ANY f orm of motorized equipment (this includes a motor vehicle). - sedation from medications may cause increase r isk of falls which requires 24 hrs supervision when starting a new medication. - any other side effects that may require immedi ate ER medical attention. - Patient is aware the possi ble of developing seriotonin syndrome while being on various antidepressants or tramadol type medications which may lead to sudden . Notes Date/Time Note Provider Source 2023-03-11 10:25:13-00:00 Formatting of this note is d ifferent from the original. [place] Rodriguez is a 27 year old adult Chief Complaint Patient presents with Follow-up 27 year old patient c/o amy ateral knee and back pain here for follow up. Pain 04/09. Bri Ackerman MA II
[2023-03-17 20:59] LABS: Absolute Lymphocytes (CBC) 1.8 K/uL (0.7-4.9); Hematocrit 36.3 % (36.0-45.0); Lymphocytes % 29.7 % (15.3-44.8); MCV 84.6 fL (80-100); MPV 8.1 fL (7.6-11.3)
[2023-03-17 21:14] LABS: Albumin 3.1 g/dL (3.4-5.0); Bilirubin Total 0.6 mg/dL (0.2-1.0); Potassium 3.1 mEq/L (3.5-5.1); Protein, Total 7.7 g/dL (6.4-8.2)
[2023-03-17] MEDS ORDERED: LORazepam 2 MG/ML VIAL ONE (21:29)
[2023-03-17] MEDS ORDERED: NA CHLORIDE 0.9% 1,000 ML ONE (21:29)
[2023-03-17] MEDS ORDERED: ACETAMINOPHEN 500 MG TAB ONE (21:29)
[2023-03-17 22:57] LABS: Specific Gravity 1.023 (1.005-1.030)
[2023-03-17 23:00] LABS: Specific Gravity 1.023 (1.005-1.030); Urine Bacteria <20 /HPF (<20); Urine Bilirubin NEGATIVE (Negative); Urine Blood Negative (Negative); Urine Clarity Extremely Turbid (Clear); Urine Color Yellow (Yellow); Urine Glucose NEGATIVE (Negative); Urine Mucus 2+ /HPF (None Seen); Urine Protein TRACE (Negative); Urine RBC <5 /HPF (None Seen); Urine Urobilinogen Normal (Normal); Urine pH 6.5 (5.0-7.0)
--- NOTE | 2023-03-17 23:08 | ER ---
Nurse's Notes [facility] Name: Taylor Rodriguez Age: 27 yrs Sex: Female : 1995 Arrival Date: 03/17/2023 Time: 19:28 Bed 20 Private MD: Diagnosis: Chronic pain syndrome;Hypokalemia;Dorsalgia, unspecified Presentation: 03/17 19:40 Chief complaint: Patient states: CHRONIC BACK AND JOINT PAIN. GOT WORSE TODAY WHEN SHE jj7 REALIZED SHE WOULD HAVE A HARD TIME GETTING OUT OF BED. PT STATES SHE IS UNCOMFORTABLE SITTING IN CHAIRS SO TO WATCH MOVIES ETC SHE LAYS IN THE BAD AND DOESN'T GET UP OR MOVE OFTEN SO SHE GET STIFF. Coronavirus screen: At this time, the client does not indicate any symptoms associated with coronavirus-19. Ebola Screen: No symptoms or risks identified at this time. Initial Sepsis Screen: Does the patient meet any 2 criteria? No. Patient's initial sepsis screen is negative. Does the patient have a suspected source of infection? No. Patient's initial sepsis screen is negative. Risk Assessment: Do you want to hurt yourself or someone else? Patient reports no desire to harm self or others. Onset of symptoms is unknown. Mechanism of Injury: No Mechanism of Injury. 19:40 Method Of Arrival: EMS: [facility] 19:40 Acuity: MILAN 4 jj7 Triage Assessment: 19:40 General: Appears in no apparent distress. uncomfortable, Behavior is calm, cooperative, jj7 appropriate for age. Pain: Pain currently is 9 out of 10 on a pain scale. Noted to be grimacing, resistant to movement. 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 - Social history:: Smoking status: Patient denies any tobacco usage or history of. Patient/guardian denies using alcohol, street drugs. Screenin:40 [facility] ED Fall Risk Assessment (Adult) History of falling in the last 3 months, jj7 including since admission No falls in past 3 months (0 pts) Confusion or Disorientation Yes (5 pts) Intoxicated or Sedated No (0 pts) Impaired Gait Yes (1 pt) Mobility Assist Device Used Yes (1 pt) Altered Elimination No (0 pt) Score/Fall Risk Level 3 or more points = High Risk Oriented to surroundings, Maintained a safe environment, Educated pt \T\ family on fall prevention, incl call for assistance when getting out of bed. Abuse screen: Denies threats or abuse. Nutritional screening: No deficits noted. Tuberculosis screening: No symptoms or risk factors identified. Assessment: 19:40 Reassessment: SEE TRIAGE ASSESSMENT. j7 Vital Signs: 19:40 BP 137 / 76; Pulse 80; Resp 18; Temp 98.7; Pulse Ox 98% ; Weight 124.74 kg; Height 5 j7 ft. 3 in. ; Pain 9/10; 20:42 BP 119 / 81; Pulse 75; Resp 18; Pulse Ox 96% ; jj7 21:40 BP 134 / 103; Pulse 89; Resp 19; Pulse Ox 99% ; jj7 22:45 BP 119 / 69; Pulse 87; Resp 16; Pulse Ox 100% ; jj7 19:40 Body Mass Index 48.71 (124.74 kg, 160.02 cm) j7 19:40 Pain Scale: Adult j ED Course: 19:40 Arm band placed on right wrist. Patient placed in an exam room, on a stretcher. jj7 19:40 Patient has correct armband on for positive identification. Bed in low position. Call [facility] light in reach. Side rails up X2. 19:41 Patient arrived in ED. ha1 19:45 Shanna Ortiz RN is Primary Nurse. jj7 19:54 Last Saldaña PA is PHCP. cp 19:54 Moses Bell MD is Attending Physician. cp 19:58 Triage completed. jj7 20:29 Missed attempt(s): 22 gauge Bleeding controlled, band aid applied, catheter tip intact. jl10 20:41 Inserted saline lock: 22 gauge in left hand, using aseptic technique. Blood collected. jj7 22:52 Test, Urine Sent. jb5 22:52 Urinalysis w/ reflexes Sent. jb5 23:20 No provider procedures requiring assistance completed. jj7 23:20 IV discontinued, intact, bleeding controlled, No redness/swelling at site. Pressure jj7 dressing applied. Administered Medications: 21:26 Not Given (Patient Refused): Acetaminophen PO 1000 mg PO once jj7 21:37 Drug: NS 0.9% IV 1000 ml Route: IV; Rate: 1 bolus; Site: left hand; jj7 22:40 Follow up: IV Status: Completed infusion jj7 21:37 Drug: Ativan IVP 1 mg Route: IVP; Site: left hand; jj7 23:15 Follow up: Response: Marked relief of symptoms jj7 23:19 Drug: Potassium PO Effervescent Tablet 50 mEq Route: PO; jj7 23:20 Follow up: Response: No adverse reaction jj7 Medication: 19:40 VIS not applicable for this client. jj7 Outcome: 23:07 Discharge ordered by . cp 23:20 Discharged to home via wheelchair, with family. jj7 23:20 Condition: improved 23:20 Discharge instructions given to patient, family, Instructed on discharge instructions, follow up and referral plans. medication usage, safety practices, Demonstrated understanding of instructions, follow-up care, medications. 23:34 Patient left the ED. jj7 Signatures: Last Saldaña PA PA cp Mya Bashir jb5 Shefali Petty RN RN ha1 Shanna Ortiz RN RN jj7 Nuzhat Polanco jl10
--- NOTE | 2023-03-17 23:08 | EDPHYS ---
Physician Documentation [facility] Name: Taylor Rodriguez Age: 27 yrs Sex: Female : 1995 Arrival Date: 03/17/2023 Time: 19:28 Bed 20 Private MD: ED Physician Moses Bell HPI: 03/17 20:20 This 27 yrs old Black Female presents to ER via EMS with complaints of Back Pain and cp Pain all Over. 20:20 The patient presents with pain that is chronic, with no known mechanism of injury. The cp symptoms are located in the diffuse. Associated signs and symptoms: Pertinent positives: pain all over, Pertinent negatives: constipation, fever, numbness, vomiting, diarrhea. The problem was sustained from a chronic condition, PMHX significant for fibromyalgia. 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 - Social history:: Smoking status: Patient denies any tobacco usage or history of. Patient/guardian denies using alcohol, street drugs. ROS: 20:25 Constitutional: Negative for chills, fever, poor PO intake. cp 20:25 Eyes: Negative for injury, pain, redness, and discharge. cp 20:25 ENT: Negative for drainage from ear(s), ear pain, sore throat, difficulty swallowing, difficulty handling secretions. 20:25 Cardiovascular: Negative for chest pain. 20:25 Respiratory: Negative for cough, shortness of breath, wheezing. 20:25 Abdomen/GI: Negative for abdominal pain, vomiting, diarrhea, constipation. 20:25 Back: Positive for pain at rest, pain with movement. 20:25 : Negative for urinary symptoms, vaginal bleeding. 20:25 Neuro: Negative for altered mental status, dizziness, headache, numbness. 20:25 All other systems are negative. Exam: 20:30 Constitutional: The patient appears in no acute distress, alert, awake, non-toxic, well cp developed, well nourished, obese. 20:30 Head/Face: Normocephalic, atraumatic. cp 20:30 Eyes: Periorbital structures: appear normal, Conjunctiva: normal, no exudate, no injection, Sclera: no appreciated abnormality, Lids and lashes: appear normal, bilaterally. 20:30 ENT: External ear(s): are unremarkable, Nose: is normal, Mouth: Lips: moist, Oral mucosa: pink and intact, moist, Posterior pharynx: is normal, airway is patent, no erythema, no exudate. 20:30 Neck: C-spine: vertebral tenderness, is not appreciated, crepitus, is not appreciated, ROM/movement: limited range of motion, is not appreciated, Meningeal signs: are not present, nuchal rigidity, is not appreciated. 20:30 Chest/axilla: Inspection: normal. 20:30 Cardiovascular: Rate: normal, Rhythm: regular. 20:30 Respiratory: the patient does not display signs of respiratory distress, Respirations: normal, no use of accessory muscles, no retractions, labored breathing, is not present, Breath sounds: are clear throughout, no decreased breath sounds, no stridor, no wheezing. 20:30 Abdomen/GI: Inspection: obese Palpation: abdomen is soft and non-tender, in all quadrants. 20:30 Back: ROM is normal. 20:30 Skin: cellulitis, is not appreciated, no rash present. 20:30 Neuro: Orientation: to person, place \T\ time. Mentation: is normal, Motor: moves all fours, strength is normal, Sensation: is normal. Vital Signs: 19:40 BP 137 / 76; Pulse 80; Resp 18; Temp 98.7; Pulse Ox 98% ; Weight 124.74 kg; Height 5 jj7 ft. 3 in. ; Pain 9/10; 20:42 BP 119 / 81; Pulse 75; Resp 18; Pulse Ox 96% ; jj7 21:40 BP 134 / 103; Pulse 89; Resp 19; Pulse Ox 99% ; jj7 22:45 BP 119 / 69; Pulse 87; Resp 16; Pulse Ox 100% ; jj7 19:40 Body Mass Index 48.71 (124.74 kg, 160.02 cm) 7 19:40 Pain Scale: Adult [facility] MDM: 19:54 Patient medically screened. cp 21:00 Differential diagnosis: Pyelonephritis drug seeking behavior, chronic pain. 23:06 Data reviewed: vital signs, nurses notes, lab test result(s). 23:06 Counseling: I had a detailed discussion with the patient and/or guardian regarding: the cp historical points, exam findings, and any diagnostic results supporting the discharge/admit diagnosis, lab results, to return to the emergency department if symptoms worsen or persist or if there are any questions or concerns that arise at home. Response to treatment: the patient's symptoms have markedly improved after treatment, and as a result, I will discharge patient. 03/17 20:10 Order name: CBC with Diff; Complete Time: 21:13 03/17 21:13 Interpretation: Normal except: EOSINOPHIL % 11.7; EOSA 0.7. 03/17 20:10 Order name: CMP; Complete Time: 22:48 03/17 22:49 Interpretation: Normal except: K 3.1; CL 112; BUN 5; AST 9; ALB 3.1; GLOB 4.6; A/G 0.7. 03/17 20:10 Order name: Lipase; Complete Time: 22:48 03/17 20:10 Order name: Test, Urine; Complete Time: 23:03 03/17 20:10 Order name: Urinalysis w/ reflexes; Complete Time: 23:03 03/17 23:03 Interpretation: Normal except: [facility] Extremely Turbid; UPROT TRACE. 03/17 22:15 Order name: Creatine Phosphokinase; Complete Time: 22:48 EDMS 03/17 20:10 Order name: IV Saline Lock; Complete Time: 21:09 03/17 20:10 Order name: Labs collected and sent; Complete Time: 21:09 Administered Medications: 21:26 Not Given (Patient Refused): Acetaminophen PO 1000 mg PO once jj7 21:37 Drug: NS 0.9% IV 1000 ml Route: IV; Rate: 1 bolus; Site: left hand; jj7 22:40 Follow up: IV Status: Completed infusion jj7 21:37 Drug: Ativan IVP 1 mg Route: IVP; Site: left hand; jj7 23:15 Follow up: Response: Marked relief of symptoms jj7 23:19 Drug: Potassium PO Effervescent Tablet 50 mEq Route: PO; jj7 23:20 Follow up: Response: No adverse reaction jj7 Disposition Summary: 03/17/23 23:07 Discharge Ordered Location: Home cp Condition: Stable cp Diagnosis - Chronic pain syndrome cp - Hypokalemia cp - Dorsalgia, unspecified cp Followup: cp - With: Private Physician - When: 2 - 3 days - Reason: Recheck today's complaints Discharge Instructions: - Discharge Summary Sheet cp - Chronic Pain, Adult cp - Potassium Content of Foods cp - Musculoskeletal Pain cp - Hypokalemia cp Forms: - Medication Reconciliation Form cp - Thank You Letter cp - Antibiotic Education cp - Prescription Opioid Use cp - Patient Portal Instructions cp Prescriptions: - Potassium Chloride 20 meq Oral Packet - take 1 packet by ORAL route once daily 1 packet in 6 (six) ounces of water or cp juice; Take after meal; 3 packet; Refills: 0, Product Selection Permitted Signatures: Dispatcher [employer] EDMS Last Saldaña PA PA cp Johnson, Juwairiyah RN RN jj7 Corrections: (The following items were deleted from the chart) 22:14 21:13 CREATINE PHOSPHOKINASE+C.LAB.BRZ ordered. EDVA EDVA 03/18 23:13 23:13 This 27 yrs old Black Female presents to ER via EMS with complaints of Back Pain cp and Pain all Over. cp
[2023-03-17] MEDS ORDERED: POTASSIUM 25 MEQ EFFERV TAB ONE (23:18)
[2023-03-18 01:07] VITALS: TEMP 98.7
[2023-03-18 01:20] VITALS: BP 119/69; O2SAT 100
== END 2023-03-17 23:34 | disposition home or self-care (01) ==
LOC: ER 19:28
DX: G89.4 Chronic pain syndrome (principal); E87.6 Hypokalemia; Z88.6 Allergy status to analgesic agent
CPT/HCPCS: 85025; 81001; 36415; 82550; 81025; 83690; 80053; J7030

== ENCOUNTER 2023-05-01 09:57 | Emergency (ER) | payer OTHER ==
--- OUTSIDE RECORDS SUMMARY | 2023-05-01 10:09 | XMS REPORT | Continuity of Care Document ---
:1995 Author Organization [facility] t Address [address] [place] [address] Care Team Providers Name Role Phone Roman YOUNG, [facility] Primary Care Physician [phone] DARLIN VICK Attending Clinician Unavailable LEI KIMBALL Attending Clinician Unavailable ROBYN GARY Attending Clinician Unavailable GAURAV PURVIS Attending Clinician Unavailable MD ARAVIND Attending Clinician Unavailable CARLIE BRIONES Attending Clinician Unavailable ANGELICA NEVAREZ Attending Clinician Unavailable RACHEL MAHONEY Attending Clinician Unavailable SPENSER STOKES Attending Clinician Unavailable KELSEY WANG Attending Clinician Unavailable BYRON MALHOTRA Attending Clinician Unavailable SIMI JOHN Attending Clinician Unavailable LAB90 Attending Clinician Unavailable OLENA TREVIÑO Attending Clinician Unavailable JAROD TURPIN Attending Clinician Unavailable PLABPA Attending Clinician Unavailable JENNIFER BYNUM Attending Clinician Unavailable JALYN CRUZ Attending Clinician Unavailable MANOLO MARTINEZ Attending Clinician Unavailable GAUTAM GIVENS Attending Clinician Unavailable PL, TECH 1 Attending Clinician Unavailable LAB47 Attending Clinician Unavailable AMBNEFTALY_LOREA Attending Clinician Unavailable ANNEMARIE GRAFF Attending Clinician Unavailable Alexandre Wick Attending Clinician SHEY BIANCHI Attending Clinician Unavailable Doctor Unassigned, [place] Attending Clinician Unavailable Shey Bianchi MD Attending Clinician ALEXANDRE DELGADO Attending Clinician Unavailable James Sosa MD Attending Clinician [facility], [facility] Bob Attending Clinician Unavailable ILIANA LAMAR Attending Clinician Unavailable Annemarie Alexander Attending Clinician Dannie Monroe MD Attending Clinician DANNIE MONROE Attending Clinician Unavailable MARIANO Admitting Clinician Unavailable ALEXANDRE DELGADO Admitting Clinician Unavailable Payers Payer Name Policy Type Policy Number Effective Date Expiration Date S dameon AETNA MP CVS 9 [id number] 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 0-12 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 00:00: 00 [...] ents Source Name Type Date Date Clinician NAPROXEN [facility] Naproxen Propensi Active Jelena Sodium ty to 8-17 Seybold adverse 00:00: - reaction 00 Externa s l Naproxen Propensi Active 2021-08 - Oral ty to 2-15 adverse 00:00: reaction 00 to drug Naproxen Propensi Active Other Jelena ty to 5-09 reaction( Seybold adverse 00:00: s): - reaction 00 Unknown Externa s l Naproxen Propensi Active Nausea Univer s ty to and/or 8-29 ity of adverse Vomiting 00:00: [place] reaction 00 Medical s Branch NAPROXEN DRUG Active N/V Univers INGREDI 8-29 ity of 00:00: [place] 00 Medical Branch Naproxen Propensi Active ty to 5-19 adverse 00:00: reaction 00 to drug Codeine Propensi Active Jelena ty to 5- Seybold adverse 00:00: - reaction 00 Externa s l NO KNOWN Drug Active [facility] ALLERGIE Class [facility] [place] [facility] Social History Social Habit Start Date Stop Date Quantity Comments Source Gender identity 2022-09-04 Identifies as Jelena Ibrahim - 10:33:35 male gender External (finding) Sexual orientation 2022-09-04 Jelena Ibrahim - 10:33:35 External History of tobacco Cigarette Smoker Jelena Ibrahim - use External History SDOH Jelena Ashley ld - Alcohol Frequency Externa l History SDOH Jelena Ashley ld - Alcohol Std Drinks Pouncer Machine al History SDOH Jelena Ashley ld - Alcohol Binge External Exposure to Not sure University of SARS-CoV-2 (event) [facility]ly [facility] Alcohol intake 2023-04-28 2023-04-28 Current drinker Beth Ibrahim - 00:00:00 00:00:00 of alcohol External (finding) History of Social 2022-12-22 2022-12-22 Jelena Ibrahim - function 00:00:00 00:00:00 External Tobacco use and 2022-12-22 2022-12-22 Smokeless tobacco Ke sveta Guevaraybold - exposure 00:00:00 00:00:00 non-user External Alcohol Comment 2022-09-09 2022-09-09 rare Jelena henley - 00:00:00 00:00:00 External Tobacco Comment 2019-08-16 2019-08-16 Quit Universit y of 00:00:00 00:00:00 smoking/vaping [facility] earlier this year Branch Sex Assigned At [birth year] F Jelena henley - 00:00:00 00:00:00 External Smoking Status Start Date Stop Date Source Occasional tobacco 2022-12-22 00:00:00 Jelena henley - smoker External Never smoked tobacco Jelena rod - External Former smoker 2020-09-07 00:00:00 2020-09-07 [place] o [facility] 00:00:00 Medical Branch Medications Ordered Filled Start Stop Current Ordering Indication Dosage Frequency Signature Comments Components Source Medication Medication Date Date Medication? Clinician (SIG) Name Name Ketorolac 3- No [id number] 30mg Ke lsey Tromethamin 04-28 Seybold e (TORADOL) 14:00: 14:09 - 30 mg/mL 00 :00 Externa l Ketorolac 2022- No [id number] 30mg 30 mg, Jelena Tromethamin 04-28 intramuscu S eybold e (TORADOL) 14:00: 14:09 lar, ONCE, - 30 mg/mL 00 :00 On Tue Externa 04/28/23 at l 0900, For 1 dose Cyanocobala Yes Take by Emanuel sey min -29 mouth Seybold (VITAMIN B 08:57: - 12 OR) 25 Externa l Dicyclomine Yes 20mg Take 1 Ashlie ey HCl 20 MG - tablet (20 Seyb old oral Tablet 08:57: mg total) - 25 by mouth Externa every 6 l (six) hours. Trazodone 0 Yes every 24 Ashlie ey HCl 100 MG 8-29 hours Seybold oral Tablet 08:57: - 25 Externa l MELOXICAM 0 Yes 10mg Take 10 mg Ke lsey OR -29 by mouth. Seybold 08:57: - 25 Externa l Losartan 2022-0 Yes [id number] 100mg TAKE ONE Jelena Potassium 8-28 (1) Seybold (COZAAR) 00:00: TABLET(S) - 100 MG oral 00 BY MOUTH Exte rna Tablet ONCE A l DAY. Aripiprazol Yes 1{tbl} Take 1 Ke lsey e 20 MG 8-28 tablet by Seybold oral Tablet 00:00: mouth at - 00 bedtime. Externa l Cyanocobala Yes Take by Emanuel sey min 8-25 mouth Seybold (VITAMIN B 08:57: - 12 OR) 54 Externa l Dicyclomine 2022-0 Yes 20mg Take 1 Ashlie ey HCl 20 MG 8-25 tablet (20 Seyb old oral Tablet 08:57: mg total) - 54 by mouth Externa every 6 l (six) hours. Trazodone Yes every 24 Sahlie ey HCl 100 MG 8-25 hours Seybold oral Tablet 08:57: - 54 Externa l Metoclopram 0 2022- No 10mg Take 1 Emanuel sey jonathan HCl 8-25 08-25 tablet (10 Seybo ld (Reglan) 10 08:57: 00:00 mg total) - MG oral 54 :00 by mouth 4 Pouncer Machine a Tablet times l daily. Aripiprazol 2022- No Abilify Ke lsey e (Abilify) 8-25 08-25 Seybold 10 MG oral 08:57: 00:00 - Tablet 54 :00 Externa l Fluticasone Yes [id number] 1{puff} Inhale 1 Jelena -Salmeterol 8-25 6 puff into Sey bold (Advair 00:00: the lungs - Diskus) 00 2 times Externa 100-50 daily. l MCG/ACT inhalation AEROSOL POWDER, BREATH ACTIVATED Fluticasone Yes [id number] 1{puff} Inhale 1 Jelena -Salmeterol 8-25 6 puff into Sey bold (Advair 00:00: the lungs - Diskus) 00 2 times Externa 100-50 daily. l MCG/ACT inhalation AEROSOL POWDER, BREATH ACTIVATED Fluticasone 2022- No [id number] 1{puff} Inhale 1 Jelena -Salmeterol 8-25 08-25 6 puff into Se ybold (Advair 00:00: 00:00 the lungs - Diskus) 00 :00 2 times Externa 100-50 daily. l MCG/ACT inhalation AEROSOL POWDER, BREATH ACTIVATED Potassium Yes [id number] 1{tbl} TAKE ONE Jelena Chloride ER 8-22 (1) Seybold 20 MEQ oral 00:00: TABLET(S) - Tab CR 00 BY MOUTH Externa DAILY. l Meclizine Yes [id number] TAKE ONE Jelena HCl 25 MG 8-22 (1) Seybold oral Tablet 00:00: TABLET(S) - 00 BY MOUTH Externa THREE l TIMES A DAY NEEDED. FeroSul 325 2023-0 Yes [id number] TAKE ONE Jelena (65 Fe) MG 8-22 (1) TABLET Sey bold oral Tablet 00:00: (325 MG - 00 TOTAL) BY Externa MOUTH l DAILY (WITH BREAKFAST) . Topiramate 2022-0 Yes 50mg Take 1 Kelse y 50 MG oral 8-22 tablet (50 Sey bold Tablet 00:00: mg total) - 00 by mouth Externa every 12 l hours. Potassium 2022-0 Yes [id number] 1{tbl} TAKE ONE Jelena Chloride ER 8-22 (1) Seybold 20 MEQ oral 00:00: TABLET(S) - Tab CR 00 BY MOUTH Externa DAILY. l Meclizine 2022-0 Yes [id number] TAKE ONE Jelena HCl 25 MG 8-22 (1) Seybold oral Tablet 00:00: TABLET(S) - 00 BY MOUTH Externa THREE l TIMES A DAY NEEDED. FeroSul 325 2022-0 Yes [id number] TAKE ONE Jelena (65 Fe) MG 8-22 (1) TABLET Sey bold oral Tablet 00:00: (325 MG - 00 TOTAL) BY Externa MOUTH l DAILY (WITH BREAKFAST) . Topiramate 2022-0 Yes 50mg Take 1 Kelse y 50 MG oral 8-22 tablet (50 Sey bold Tablet 00:00: mg total) - 00 by mouth Externa every 12 l hours. Topiramate 2022-0 2022- No TAKE TWO Ke lsey 25 MG oral 8-21 08-25 (2) Seybold Tablet 00:00: 00:00 TABLETS - 00 :00 EVERY 12 Externa HOURS. l Cyanocobala 2022-0 Yes Take by Emanuel sey min 7-12 mouth Seybold (VITAMIN B 10:25: - 12 OR) 36 Externa l Metoclopram 2022-0 Yes 10mg Take 1 Ashlie ey jonathan HCl 7-12 tablet (10 Seybol d (Reglan) 10 10:25: mg total) - MG oral 36 by mouth 4 Pouncer Machine a Tablet times l daily Dicyclomine 2022-0 Yes 20mg Take 1 Ashlie ey HCl 20 MG 7-12 tablet (20 Seyb old oral Tablet 10:25: mg total) - 36 by mouth Externa every 6 l (six) hours Aripiprazol 2022-0 Yes Abilify Emanuel sey e (Abilify) 7-12 Seybold 10 MG oral 10:25: - Tablet 36 Externa l Trazodone 0 Yes every 24 Ashlie ey HCl 100 MG 7-12 hours Seybold oral Tablet 10:25: - 36 Externa l Topiramate Yes TAKE ONE Emanuel sey 25 MG oral 7-06 (1) Seybold Tablet 00:00: TABLET(S) - 00 BY MOUTH Externa ONCE A DAY l FOR 3 DAYS , THEN ONE (1) TABLET EVERY 12 HOURS FOR 3 DAYS, THEN TWO (2) TABLETS EVERY 12 HOURS THEREAFTER . predniSONE Yes TAKE FOUR Ke lsey (DELTASONE) 6-24 (4) Seybold 10 MG oral 00:00: TABLET(S) - tablet 00 BY MOUTH Externa ONCE A DAY l FOR 5 DAYS. Nebulizers Yes See Admin Ke lsey (Vios LC 6-24 Instructio Seybo ld Plus) does 00:00: ns. - not apply 00 Externa Misc l Albuterol Yes INHALE ONE Ke lsey (PROVENTIL) 6-24 (1) VIAL Seyb old (2.5 00:00: VIA - MG/3ML) 00 NEBULIZER Externa 0.083% EVERY l inhalation EIGHT Inhalant HOURS Solution NEEDED. Cyanocobala Yes Take by Emanuel sey min 6-21 mouth Seybold (VITAMIN B 11:04: - 12 OR) 18 Externa l Metoclopram Yes 10mg Take 1 Ashlie ey jonathan HCl 6-21 tablet (10 Seybol d (Reglan) 10 11:04: mg total) - MG oral 18 by mouth 4 Pouncer Machine a Tablet times l daily Dicyclomine 0 Yes 20mg Take 1 Ashlie ey HCl 20 MG 6-21 tablet (20 Seyb old oral Tablet 11:04: mg total) - 18 by mouth Externa every 6 l (six) hours Aripiprazol 0 Yes Abilify Emanuel sey e (Abilify) 6-21 Seybold 10 MG oral 11:04: - Tablet 18 Externa l Trazodone 0 Yes every 24 Ashlie ey HCl 100 MG 6-21 hours Seybold oral Tablet 11:04: - 18 Externa l Potassium 2023-0 Yes [id number] 1{tbl} Take 1 Jelena Chloride ER 6-21 tablet by Sey bold 20 MEQ oral 00:00: mouth - Tab CR 00 daily Externa l Propranolol 2023-0 Yes [id number] 10mg Take 1 Jelena HCl 10 MG 6-21 tablet (10 Seyb old oral Tablet 00:00: mg total) - 00 by mouth 3 Externa times l daily Budesonide 2023-0 Yes [id number] Inhale 2 Jelena 90 MCG/ACT 6-21 inhalation Sey bold inhalation 00:00: s into the - AEROSOL 00 lungs Externa POWDER, daily l BREATH ACTIVATED hydroCHLORO 2023-0 Yes [id number] 12.5mg Take 1 Jelena thiazide 6-21 capsule Seybold 12.5 MG 00:00: (12.5 mg - oral 00 total) by Externa Capsule mouth l daily Potassium 2023-0 Yes [id number] 1{tbl} Take 1 Jelena Chloride ER 6-21 tablet by Sey bold 20 MEQ oral 00:00: mouth - Tab CR 00 daily Externa l Propranolol 2023-0 Yes [id number] 10mg Take 1 Jelena HCl 10 MG 6-21 tablet (10 Seyb old oral Tablet 00:00: mg total) - 00 by mouth 3 Externa times l daily Budesonide 2023-0 Yes [id number] Inhale 2 Jelena 90 MCG/ACT 6-21 inhalation Sey bold inhalation 00:00: s into the - AEROSOL 00 lungs Externa POWDER, daily l BREATH ACTIVATED hydroCHLORO 2023-0 Yes [id number] 12.5mg Take 1 Jelena thiazide 6-21 capsule Seybold 12.5 MG 00:00: (12.5 mg - oral 00 total) by Externa Capsule mouth l daily Propranolol 2023-0 Yes [id number] 10mg Take 1 Jelena HCl 10 MG 6-21 tablet (10 Seyb old oral Tablet 00:00: mg total) - 00 by mouth 3 Externa times l daily hydroCHLORO 2023-0 Yes [id number] 12.5mg Take 1 Jelena thiazide 6-21 capsule Seybold 12.5 MG 00:00: (12.5 mg - oral 00 total) by Externa Capsule mouth l daily Propranolol 2023-0 Yes [id number] 10mg Take 1 Jelena HCl 10 MG 6-21 tablet (10 Seyb old oral Tablet 00:00: mg total) - 00 by mouth 3 Externa times l daily hydroCHLORO 3-0 Yes [id number] 12.5mg Take 1 Jelena thiazide 6-21 capsule Seybold 12.5 MG 00:00: (12.5 mg - oral 00 total) by Externa Capsule mouth l daily Budesonide 2022-0 3- No [id number] Inhale 2 Jelena 90 MCG/ACT 6-21 08-25 inhalation Se ybold inhalation 00:00: 00:00 s into the - AEROSOL 00 :00 lungs Externa POWDER, daily l BREATH ACTIVATED Meclizine 2022-0 Yes [id number] TAKE ONE Jelena HCl 25 MG 6-19 (1) Seybold oral Tablet 00:00: TABLET(S) - 00 BY MOUTH Externa THREE l TIMES A DAY NEEDED. Meclizine 2022-0 Yes [id number] TAKE ONE Jelena HCl 25 MG 6-19 (1) Seybold oral Tablet 00:00: TABLET(S) - 00 BY MOUTH Externa THREE l TIMES A DAY NEEDED. Gabapentin 2022-0 Yes [id number] 100mg Take 1 Jelena 100 MG oral 6-18 capsule Seybo ld Capsule 00:00: (100 mg - 00 total) by Externa mouth 3 l times daily Gabapentin 2022-0 3- No [id number] 100mg Take 1 Jelena 100 MG oral 6-18 07-12 capsule Seyb old Capsule 00:00: 00:00 (100 mg - 00 :00 total) by Externa mouth 3 l times daily Losartan 2022-0 Yes [id number] 100mg Take 1 Ke lsey Potassium 6-05 tablet Seybold (COZAAR) 00:00: (100 mg - 100 MG oral 00 total) by Ext jonathan Tablet mouth l daily Losartan 3-0 Yes [id number] 100mg Take 1 Ke lsey Potassium 6-05 tablet Seybold (COZAAR) 00:00: (100 mg - 100 MG oral 00 total) by Ext jonathan Tablet mouth l daily Losartan 3-0 Yes [id number] 100mg Take 1 Ke lsey Potassium 6-05 tablet Seybold (COZAAR) 00:00: (100 mg - 100 MG oral 00 total) by Ext jonathan Tablet mouth l daily Metoclopram 0 Yes 10mg Take 1 Ashlie ey jonathan HCl 5-31 tablet (10 Seybol d (Reglan) 10 10:58: mg total) - MG oral 34 by mouth 4 Pouncer Machine a Tablet times l daily Dicyclomine Yes [...] 2 po q 12 hrs, Meclizine Yes [id number] TAKE ONE Jelena HCl 25 MG 5-22 (1) Seybold oral Tablet 00:00: TABLET(S) - 00 BY MOUTH Externa THREE l TIMES A DAY NEEDED. Meclizine 0 2022- No [id number] TAKE ONE Jelena HCl 25 MG 5-22 06-19 (1) Seybold oral Tablet 00:00: 00:00 TABLET(S) - 00 :00 BY MOUTH Externa THREE l TIMES A DAY NEEDED. Losartan Yes [id number] 1{tbl} Take 1 K elsey Potassium-H 5-15 tablet by Lit bold CTZ 50-12.5 00:00: mouth - MG oral 00 daily Externa Tablet l Gabapentin Yes [id number] 100mg Take 1 Jelena 100 MG oral 5-15 capsule Seybo ld Capsule 00:00: (100 mg - 00 total) by Externa mouth 3 l times daily Gabapentin 0 2022- No [id number] 100mg Take 1 Jelena 100 MG oral 15 -16 capsule Seyb old Capsule 00:00: 00:00 (100 mg - 00 :00 total) by Externa mouth 3 l times daily Cholecalcif Yes TAKE ONE Jc bangura juan 5-06 (1) Seybold (Vitamin 00:00: CAPSULE(S) - D3) 1.25 MG 00 BY MOUTH Exte rna (80025 UT) TWICE A l oral WEEK. Capsule Cholecalcif Yes TAKE ONE Jc lsey juan - (1) Seybold (Vitamin 00:00: CAPSULE(S) - D3) 1.25 MG 00 BY MOUTH Exte rna (55682 UT) TWICE A l oral WEEK. Capsule Cholecalcif Yes TAKE ONE Jc fieldey juan - (1) Seybold (Vitamin 00:00: CAPSULE(S) - D3) 1.25 MG 00 BY MOUTH Exte rna (34431 UT) TWICE A l oral WEEK. Capsule Cholecalcif Yes Jelena juan - Seybold (Vitamin 00:00: - D3) 1.25 MG 00 Externa (65433 UT) l oral Capsule Trazodone 0 2022- No [id number] 100mg Take 1 Jelena HCl 100 MG - 05- tablet Seybol d oral Tablet 11:10: 00:00 (100 mg - 14 :00 total) by Externa mouth at l bedtime Cyanocobala Yes Take by Emanuel sey min 5-01 mouth Seybold (VITAMIN B 09:56: - 12 OR) 28 Externa l Tramadol 0 Yes [id number] 50mg Q.25D Take 1 K elsey HCl 5-01 tablet (50 Seybold (ULTRAM) 50 00:00: mg total) - MG oral 00 by mouth Externa Tablet every 6 l hours as needed for pain Tramadol 0 Yes [id number] 50mg Q.25D Take 1 K elsey HCl 5-01 tablet (50 Seybold (ULTRAM) 50 00:00: mg total) - MG oral 00 by mouth Externa Tablet every 6 l hours as needed for pain Tramadol 0 Yes [id number] 50mg Q.25D Take 1 K elsey HCl 5-01 tablet (50 Seybold (ULTRAM) 50 00:00: mg total) - MG oral 00 by mouth Externa Tablet every 6 l hours as needed for pain Tramadol 2022-0 Yes [id number] 50mg Q.25D Take 1 K elsey HCl 5-01 tablet (50 Seybold (ULTRAM) 50 00:00: mg total) - MG oral 00 by mouth Externa Tablet every 6 l hours as needed for pain Tramadol 2022-0 2023- No [id number] 50mg Q.25D Take 1 Jelena HCl 5-01 08-25 tablet (50 Seybold (ULTRAM) 50 00:00: 00:00 mg total) - MG oral 00 :00 by mouth Externa Tablet every 6 l hours as needed for pain hydrOXYzine 2022-0 Yes Jelena HCl 25 MG 4-26 Seybold oral Tablet 00:00: - 00 Externa l hydrOXYzine 2023-0 Yes Jelena HCl 25 MG 4-26 Seybold oral Tablet 00:00: - 00 Externa l hydrOXYzine 3-0 Yes Jelena HCl 25 MG 4-26 Seybold oral Tablet 00:00: - 00 Externa l hydrOXYzine 2023-0 Yes Jelena HCl 25 MG 4-26 Seybold oral Tablet 00:00: - 00 Externa l hydrOXYzine 3-0 Yes Jelena HCl 25 MG 4-26 Seybold oral Tablet 00:00: - 00 Externa l hydrOXYzine 2023-0 Yes Jelena HCl 25 MG 4-26 Seybold oral Tablet 00:00: - 00 Externa l Trazodone 3-0 Yes [id number] 100mg Take 1 K elsey HCl 100 MG 4-24 tablet Seybold oral Tablet 08:55: (100 mg - 22 total) by Externa mouth at l bedtime Cyanocobala 2022-0 Yes Take by Emanuel sey min 4-24 mouth Seybold (VITAMIN B 08:55: - 12 OR) 22 Externa l Albuterol 3-0 Yes [id number] 2{puff} Q.25D Inhale 2 Jelena HFA 108 (90 4-24 puffs into Se ybold Base) 00:00: the lungs - MCG/ACT IN 00 every 6 Pouncer Machine a AERS hours as l needed for wheezing or shortness of breath Meclizine 2022-0 Yes [id number] TAKE ONE Jelena HCl 25 MG 4-24 (1) Seybold oral Tablet 00:00: TABLET(S) - 00 BY MOUTH Externa THREE l TIMES A DAY NEEDED. Albuterol 2022-0 Yes [id number] 2{puff} Q.25D Inhale 2 Jelena HFA 108 (90 4-24 puffs into Se ybold Base) 00:00: the lungs - MCG/ACT IN 00 every 6 Pouncer Machine a AERS hours as l needed for wheezing or shortness of breath Albuterol 2022-0 Yes [id number] 2{puff} Q.25D Inhale 2 Jelena HFA 108 (90 4-24 puffs into Se ybold Base) 00:00: the lungs - MCG/ACT IN 00 every 6 Pouncer Machine a AERS hours as l needed for wheezing or shortness of breath Albuterol 2022-0 Yes [id number] 2{puff} Q.25D Inhale 2 Jelena HFA 108 (90 4-24 puffs into Se ybold Base) 00:00: the lungs - MCG/ACT IN 00 every 6 Pouncer Machine a AERS hours as l needed for wheezing or shortness of breath Albuterol 2022-0 Yes [id number] 2{puff} Q.25D Inhale 2 Jelena HFA 108 (90 4-24 puffs into Se ybold Base) 00:00: the lungs - MCG/ACT IN 00 every 6 Pouncer Machine a AERS hours as l needed for wheezing or shortness of breath Albuterol 2022-0 Yes [id number] 2{puff} Q.25D Inhale 2 Jelena HFA 108 (90 4-24 puffs into Se ybold Base) 00:00: the lungs - MCG/ACT IN 00 every 6 Pouncer Machine a AERS hours as l needed for wheezing or shortness of breath Albuterol 2022-0 Yes [id number] 2{puff} Q.25D Inhale 2 Jelena HFA 108 (90 4-24 puffs into Se ybold Base) 00:00: the lungs - MCG/ACT IN 00 every 6 Pouncer Machine a AERS hours as l needed for wheezing or shortness of breath Cyclobenzap 2023-0 Yes 10mg Q.[id number] Take 1 Jelena rine HCl 10 4-22 [id number] tablet (10 Seybold MG oral 00:00: 3D mg total) - Tablet 00 by mouth Externa every 8 l hours as needed Cyclobenzap 2023-0 Yes 10mg Q.[id number] Take 1 Jelena rine HCl 10 4-22 [id number] tablet (10 Seybold MG oral 00:00: 3D mg total) - Tablet 00 by mouth Externa every 8 l hours as needed Cyclobenzap 2023-0 Yes 10mg Q.[id number] Take 1 Jelena rine HCl 10 4-22 [id number] tablet (10 Seybold MG oral 00:00: 3D mg total) - Tablet 00 by mouth Externa every 8 l hours as needed Cyclobenzap 2023-0 Yes 10mg Q.[id number] Take 1 Jelena rine HCl 10 4-22 [id number] tablet (10 Seybold MG oral 00:00: 3D mg total) - Tablet 00 by mouth Externa every 8 l hours as needed Cyclobenzap 202-0 Yes 10mg Q.[id number] Take 1 Jelena rine HCl 10 4-22 [id number] tablet (10 Seybold MG oral 00:00: 3D mg total) - Tablet 00 by mouth Externa every 8 l hours as needed Cyclobenzap 2023-0 Yes 10mg Q.[id number] Take 1 Jelena rine HCl 10 4-22 [id number] tablet (10 Seybold MG oral 00:00: 3D mg total) - Tablet 00 by mouth Externa every 8 l hours as needed Cyclobenzap 2023-0 Yes 10mg Q.[id number] Take 1 Jelena rine HCl 10 4-22 [id number] tablet (10 Seybold MG oral 00:00: 3D mg total) - Tablet 00 by mouth Externa every 8 l hours as needed. Gabapentin 2023-0 Yes [id number] 100mg Take 1 Jelena 100 MG oral 4-20 capsule Seybo ld Capsule 00:00: (100 mg - 00 total) by Externa mouth 3 l times daily Gabapentin 2023-0 Yes [id number] 100mg Take 1 Jelena 100 MG oral 4-20 capsule Seybo ld Capsule 00:00: (100 mg - 00 total) by Externa mouth 3 l times daily Aripiprazol 2023-0 Yes 15mg Take 1 Ashlie ey e 15 MG 4-19 tablet (15 Seybol d oral Tablet 00:00: mg total) - 00 by mouth Externa at bedtime l Aripiprazol 2023-0 Yes 15mg Take 1 Ashlie ey e 15 MG 4-19 tablet (15 Seybol d oral Tablet 00:00: mg total) - 00 by mouth Externa at bedtime l Aripiprazol 2023-0 Yes 15mg Take 1 Ashlie ey e 15 MG 4-19 tablet (15 Seybol d oral Tablet 00:00: mg total) - 00 by mouth Externa at bedtime l Aripiprazol 3-0 Yes 15mg Take 1 Ashlie ey e 15 MG 4-19 tablet (15 Seybol d oral Tablet 00:00: mg total) - 00 by mouth Externa at bedtime l Aripiprazol 3-0 Yes 15mg Take 1 Ashlie ey e 15 MG 4-19 tablet (15 Seybol d oral Tablet 00:00: mg total) - 00 by mouth Externa at bedtime l Aripiprazol 3-0 Yes 15mg Take 1 Ashlie ey e 15 MG 4-19 tablet (15 Seybol d oral Tablet 00:00: mg total) - 00 by mouth Externa at l bedtime. Aripiprazol 3-0 Yes 15mg Take 1 Ashlie ey e 15 MG 4-19 tablet (15 Seybol d oral Tablet 00:00: mg total) - 00 by mouth Externa at l bedtime. Trazodone 3-0 Yes [id number] 100mg Take 1 K elsey HCl 100 MG 4-13 tablet Seybold oral Tablet 10:58: (100 mg - 09 total) by Externa mouth at l bedtime Cyanocobala 3-0 Yes Take by Emanuel sey min 4-13 mouth Seybold (VITAMIN B 10:58: - 12 OR) 09 Externa l Trazodone 3-0 Yes [id number] 100mg Take 1 K elsey HCl 100 MG 4-10 tablet Seybold oral Tablet 11:00: (100 mg - 07 total) by Externa mouth at l bedtime Cyanocobala 3-0 Yes Take by Emanuel sey min 4-10 mouth Seybold (VITAMIN B 11:00: - 12 OR) 07 Externa l Propranolol 2023-0 Yes [id number] TAKE ONE Jelena HCl 10 MG 4-10 (1) Seybold oral Tablet 00:00: TABLET(S) - 00 BY MOUTH Externa THREE l TIMES A DAY. Propranolol 2023-0 Yes [id number] TAKE ONE Jelena HCl 10 MG 4-10 [...] Release daily as needed Propranolol 2023-0 Yes [id number] TAKE ONE Jelena HCl 10 MG 4-10 [...] Release daily as needed Propranolol 2023-0 Yes [id number] TAKE ONE Jelena HCl 10 MG 4-10 [...] 2 l Sustained times Release daily as needed. Propranolol 2023-0 2023- No [id number] TAKE ONE Jelena HCl 10 MG 4-10 06-21 (1) Seybold oral Tablet 00:00: 00:00 TABLET(S) - 00 :00 BY MOUTH Externa THREE l TIMES A DAY. Meloxicam 2023-0 Yes [id number] 15mg Take 1 Jelena 15 MG oral 4-06 tablet (15 Sey bold Tablet 00:00: mg total) - 00 by mouth Externa daily l Meloxicam 2023-0 Yes [id number] 15mg Take 1 Jelena 15 MG oral 4-06 tablet (15 Sey bold Tablet 00:00: mg total) - 00 by mouth Externa daily l Meloxicam 2023-0 Yes [id number] 15mg Take 1 Jelena 15 MG oral 4-06 tablet (15 Sey bold Tablet 00:00: mg total) - 00 by mouth Externa daily l Meloxicam 2023-0 Yes [id number] 15mg Take 1 Jelena 15 MG oral 4-06 tablet (15 Sey bold Tablet 00:00: mg total) - 00 by mouth Externa daily l Meloxicam 2023-0 Yes [id number] 15mg Take 1 Jelena 15 MG oral 4-06 tablet (15 Sey bold Tablet 00:00: mg total) - 00 by mouth Externa daily l Meloxicam 2023-0 Yes [id number] 15mg Take 1 Jelena 15 MG oral 4-06 tablet (15 Sey bold Tablet 00:00: mg total) - 00 by mouth Externa daily l Meloxicam 2023-0 Yes [id number] 15mg Take 1 Jelena 15 MG oral 4-06 tablet (15 Sey bold Tablet 00:00: mg total) - 00 by mouth Externa daily l Meloxicam 2023-0 Yes [id number] 15mg Take 1 Jelena 15 MG oral 4-06 tablet (15 Sey bold Tablet 00:00: mg total) - 00 by mouth Externa daily l Meloxicam 2023-0 Yes [id number] 15mg Take 1 Jelena 15 MG oral [...] total) by Exter na mouth l every morning. Duloxetine 2023-0 Yes 30mg Take 1 Kelse y HCl 30 MG 3-31 capsule Seybold oral Cap DR 00:00: (30 mg - Particles 00 total) by Exter na mouth l every morning. Meclizine 2023-0 Yes [id number] TAKE ONE Jelena HCl 25 MG 3-24 (1) Seybold oral Tablet 00:00: TABLET(S) - 00 BY MOUTH Externa THREE l TIMES A DAY NEEDED. Meclizine 2023-0 Yes [id number] TAKE ONE Jelena HCl 25 MG 3-24 (1) Seybold oral Tablet 00:00: TABLET(S) - 00 BY MOUTH Externa THREE l TIMES A DAY NEEDED. Meclizine 0 Yes [id number] TAKE ONE Jelena HCl 25 MG 3-24 (1) Seybold oral Tablet 00:00: TABLET(S) - 00 BY MOUTH Externa THREE l TIMES A DAY NEEDED. Losartan 2022-0 Yes [id number] 1{tbl} Take 1 K elsey Potassium-H 3-22 tablet by Sey bold CTZ 50-12.5 00:00: mouth - MG oral 00 daily Externa Tablet l Losartan 2022-0 Yes [id number] 1{tbl} Take 1 K elsey Potassium-H 3-22 tablet by SeZase bold CTZ 50-12.5 00:00: mouth - MG oral 00 daily Externa Tablet l Losartan 2022-0 Yes [id number] 1{tbl} Take 1 K elsey Potassium-H 3-22 tablet by SeZase bold CTZ 50-12.5 00:00: mouth - MG oral 00 daily Externa Tablet l Losartan 0 Yes [id number] 1{tbl} Take 1 K elsey Potassium-H 3-22 tablet by SeZase bold CTZ 50-12.5 00:00: mouth - MG oral 00 daily Externa Tablet l Propranolol 0 2022- No [id number] TAKE ONE Jelena HCl 10 MG 3-10 04-10 (1) Seybold oral Tablet 00:00: 00:00 TABLET(S) - 00 :00 BY MOUTH Externa THREE l TIMES A DAY. Cholecalcif 2022-0 2022- No [id number] 23377F Take 1 Jelena juan 1.25 3-02 04-10 capsule Seybol d MG ([id number] 00:00: 00:00 (50,000 - UT) oral 00 :00 units Externa Capsule total) by l mouth twice a week for 8 doses Trazodone 2022-0 Yes [id number] 100mg Take 100 Jelena HCl 100 MG 2-28 mg by Seybold oral Tablet 09:11: mouth at - 07 bedtime Externa l Cyanocobala 0 Yes Take by Emanuel sey min 2-28 mouth Seybold (VITAMIN B 09:11: - 12 OR) 07 Externa l hydroCHLORO 2023-0 Yes TAKE ONE Ke lsey [...] A l DAY. hydrOXYzine 2023-0 Yes 50mg Q.[id number] Take 1 Jelena HCl 50 MG 2-13 [id number] tablet (50 Seybold oral Tablet 00:00: 3D mg total) - 00 by mouth Externa every 8 l hours as needed hydrOXYzine 2023-0 Yes 50mg Q.[id number] Take 1 Jelena HCl 50 MG 2-13 [id number] tablet (50 Seybold oral Tablet 00:00: 3D mg total) - 00 by mouth Externa every 8 l hours as needed hydrOXYzine 2023-0 Yes 50mg Q.[id number] Take 1 Jelena HCl 50 MG 2-13 [id number] tablet (50 Seybold oral Tablet 00:00: 3D mg total) - 00 by mouth Externa every 8 l hours as needed hydrOXYzine 2023-0 Yes 50mg Q.[id number] Take 1 Jelena HCl 50 MG 2-13 [id number] tablet (50 Seybold oral Tablet 00:00: 3D mg total) - 00 by mouth Externa every 8 l hours as needed hydrOXYzine 2023-0 Yes 50mg Q.[id number] Take 1 Jelena HCl 50 MG 2-13 [id number] tablet (50 Seybold oral Tablet 00:00: 3D mg total) - 00 by mouth Externa every 8 l hours as needed hydrOXYzine 2023-0 Yes 50mg Q.[id number] Take 1 Jelena HCl 50 MG 2-13 [id number] tablet (50 Seybold oral Tablet 00:00: 3D mg total) - 00 by mouth Externa every 8 l hours as needed. hydrOXYzine 2023-0 Yes 50mg Q.[id number] Take 1 Jelena HCl 50 MG 2-13 [id number] tablet (50 Seybold oral Tablet 00:00: 3D mg total) - 00 by mouth Externa every 8 l hours as needed. Losartan 2023-0 Yes [id number] 1{tbl} Take 1 K elsey Potassium-H 2-10 tablet by Sey bold CTZ 50-12.5 00:00: mouth - MG oral 00 daily Externa Tablet l Meclizine 2023-0 Yes [id number] 25mg Q.[id number] Take 1 Jelena HCl 25 MG 2-10 [id number] tablet (25 Seybold oral Tablet 00:00: 3D mg total) - 00 by mouth 3 Externa times l daily as needed Propranolol 2023-0 Yes [id number] 10mg Take 1 Jelena HCl 10 MG 2-10 tablet (10 Seyb old oral Tablet 00:00: mg total) - 00 by mouth 3 Externa times l daily Losartan 2023-0 Yes [id number] 1{tbl} Take 1 K elsey Potassium-H 2-10 tablet by Sey bold CTZ 50-12.5 00:00: mouth - MG oral 00 daily Externa Tablet l Meclizine 2023-0 Yes [id number] 25mg Q.[id number] Take 1 Jelena HCl 25 MG 2-10 [id number] tablet (25 Seybold oral Tablet 00:00: 3D mg total) - 00 by mouth 3 Externa times l daily as needed Propranolol 2023-0 Yes [id number] 10mg Take 1 Jelena HCl 10 MG 2-10 tablet (10 Seyb old oral Tablet 00:00: mg total) - 00 by mouth 3 Externa times l daily Doxycycline Yes [id number] 100mg Take 1 Jelena Hyclate 100 -31 tablet Seybol d MG oral 00:00: (100 mg - Tablet 00 total) by Externa mouth 2 l times daily Doxycycline 2022- No [id number] 100mg Take 1 Jelena Hyclate 100 09-30-28 tablet Seybo ld MG oral 00:00: 00:00 (100 mg - Tablet 00 :00 total) by Externa mouth 2 l times daily Trulicity Yes [id number] .75mg Inject Jelena 0.75 1-28 0.75 mg Seybold MG/0.5ML 00:00: into the - subcutaneou 00 skin once Ext jonathan s Solution a week l Pen-injecto r Trulicity Yes [id number] .75mg Inject Jelena 0.75 1-28 0.75 mg Seybold MG/0.5ML 00:00: into the - subcutaneou 00 skin once Ext jonathan s Solution a week l Pen-injecto r Trulicity Yes [id number] .75mg Inject Jelena 0.75 1-28 0.75 mg Seybold MG/0.5ML 00:00: into the - subcutaneou 00 skin once Ext jonathan s Solution a week l Pen-injecto r Trulicity Yes [id number] .75mg Inject Jelena 0.75 1-28 0.75 mg Seybold MG/0.5ML 00:00: into the - subcutaneou 00 skin once Ext jonathan s Solution a week l Pen-injecto r Aripiprazol 2022- No Kelse y e 20 MG -25 -25 Seybold oral Tablet 11:11: 00:00 - 39 :00 Externa l Aripiprazol 2022- No [id number] 10mg Take 10 mg Jelena e 10 MG -24 09-25 by mouth 2 Seybo ld oral Tablet 11:11: 00:00 times - 26 :00 daily Externa l Trazodone Yes [id number] 100mg Take 100 Jelena HCl 100 MG 1-25 mg by Seybold oral Tablet 10:31: mouth at - 22 bedtime Externa l Cyanocobala Yes Take by Emanuel sey min 1-25 mouth Seybold (VITAMIN B 10:31: - 12 OR) 22 Externa l Trazodone Yes [id number] 100mg Take 100 Jelena HCl 100 MG 1-25 mg by Seybold oral Tablet 10:31: mouth at - 22 bedtime Externa l Cyanocobala Yes Take by Emanuel sey min 1-25 mouth Seybold (VITAMIN B 10:31: - 12 OR) 22 Externa l hydroCHLORO Yes [id number] 12.5mg Take 1 Jelena thiazide 1-25 capsule Seybold 12.5 MG 00:00: (12.5 mg - oral 00 total) by Externa Capsule mouth l daily Ondansetron Yes [id number] 4mg Q.[id number] Take 1 Jelena (ZOFRAN) 4 1-25 [id number] tablet (4 Seybold MG oral 00:00: 3D mg total) - TABLET 00 by mouth Externa DISPERSIBLE every 8 l hours as needed for nausea Tirzepatide Yes [id number] 2.5mg Inject 0.5 Jelena (Mounjaro) 1-25 mL (2.5 mg Sey bold 2.5 00:00: total) - MG/0.5ML 00 into the Externa subcutaneou skin once l s Solution a week Pen-injecto r Celecoxib Yes [id number] 200mg Take 1 Jelena (CeleBREX) 1-25 capsule Seybol d 200 MG oral 00:00: (200 mg - Capsule 00 total) by Externa mouth 2 l times daily Gabapentin Yes [id number] 100mg Take 1 Jelena 100 MG oral 1-25 capsule Seybo ld Capsule 00:00: (100 mg - 00 total) by Externa mouth 3 l times daily Ondansetron Yes [id number] 4mg Q.[id number] Take 1 Jelena (ZOFRAN) 4 1-25 [id number] tablet (4 Seybold MG oral 00:00: 3D mg total) - TABLET 00 by mouth Externa DISPERSIBLE every 8 l hours as needed for nausea Celecoxib 3-0 Yes [id number] 200mg Take 1 Jelena (CeleBREX) 1-25 capsule Seybol d 200 MG oral 00:00: (200 mg - Capsule 00 total) by Externa mouth 2 l times daily Gabapentin 2023-0 Yes [id number] 100mg Take 1 Jelena 100 MG oral 1-25 capsule Seybo ld Capsule 00:00: (100 mg - 00 total) by Externa mouth 3 l times daily Ondansetron 3-0 Yes [id number] 4mg Q.[id number] Take 1 Jelena (ZOFRAN) 4 1-25 [id number] tablet (4 Seybold MG oral 00:00: 3D mg total) - TABLET 00 by mouth Externa DISPERSIBLE every 8 l hours as needed for nausea Celecoxib 3-0 Yes [id number] 200mg Take 1 Jelena (CeleBREX) 1-25 capsule Seybol d 200 MG oral 00:00: (200 mg - Capsule 00 total) by Externa mouth 2 l times daily Gabapentin 3-0 Yes [id number] 100mg Take 1 Jelena 100 MG oral 1-25 capsule Seybo ld Capsule 00:00: (100 mg - 00 total) by Externa mouth 3 l times daily Ondansetron 3-0 Yes [id number] 4mg Q.[id number] Take 1 Jelena (ZOFRAN) 4 1-25 [id number] tablet (4 Seybold MG oral 00:00: 3D mg total) - TABLET 00 by mouth Externa DISPERSIBLE every 8 l hours as needed for nausea Gabapentin 3-0 Yes [id number] 100mg Take 1 Jelena 100 MG oral 1-25 capsule Seybo ld Capsule 00:00: (100 mg - 00 total) by Externa mouth 3 l times daily Ondansetron 2023-0 Yes [id number] 4mg Q.[id number] Take 1 Jelena (ZOFRAN) 4 1-25 [id number] tablet (4 Seybold MG oral 00:00: 3D mg total) - TABLET 00 by mouth Externa DISPERSIBLE every 8 l hours as needed for nausea Gabapentin 2023-0 Yes [id number] 100mg Take 1 Jelena 100 MG oral 1-25 capsule Seybo ld Capsule 00:00: (100 mg - 00 total) by Externa mouth 3 l times daily Ondansetron 2022-0 Yes [id number] 4mg Q.[id number] Take 1 Jelena (ZOFRAN) 4 1-25 [id number] tablet (4 Seybold MG oral 00:00: 3D mg total) - TABLET 00 by mouth Externa DISPERSIBLE every 8 l hours as needed for nausea Ondansetron 2022-0 Yes [id number] 4mg Q.[id number] Take 1 Jelena (ZOFRAN) 4 1-25 [id number] tablet (4 Seybold MG oral 00:00: 3D mg total) - TABLET 00 by mouth Externa DISPERSIBLE every 8 l hours as needed for nausea Ondansetron 2022-0 Yes [id number] 4mg Q.[id number] Take 1 Jelena (ZOFRAN) 4 1-25 [id number] tablet (4 Seybold MG oral 00:00: 3D mg total) - TABLET 00 by mouth Externa DISPERSIBLE every 8 l hours as needed for nausea Ondansetron 2022-0 Yes [id number] 4mg Q.[id number] Take 1 Jelena (ZOFRAN) 4 1-25 [id number] tablet (4 Seybold MG oral 00:00: 3D mg total) - TABLET 00 by mouth Externa DISPERSIBLE every 8 l hours as needed for nausea Ondansetron 3-0 Yes [id number] 4mg Q.[id number] Take 1 Jelena (ZOFRAN) 4 1-25 [id number] tablet (4 Seybold MG oral 00:00: 3D mg total) - TABLET 00 by mouth Externa DISPERSIBLE every 8 l hours as needed for nausea Ondansetron 3-0 Yes [id number] 4mg Q.[id number] Take 1 Jelena (ZOFRAN) 4 1-25 [id number] tablet (4 Seybold MG oral 00:00: 3D mg total) - TABLET 00 by mouth Externa DISPERSIBLE every 8 l hours as needed for nausea Ondansetron 3-0 Yes [id number] 4mg Q.[id number] Take 1 Jelena (ZOFRAN) 4 09-24 [id number] tablet (4 Seybold MG oral 00:00: 3D mg total) - TABLET 00 by mouth Externa DISPERSIBLE every 8 l hours as needed for nausea hydroCHLORO 2022-0 2022- No [id number] 12.5mg Take 1 Jelena thiazide 25 02-10 capsule Seybold 12.5 MG 00:00: 00:00 (12.5 mg - oral 00 :00 total) by Externa Capsule mouth l daily Nexplanon 2023-0 Yes Jelena 68 MG 1-23 [...] Implant 00 Externa l Docusate 0 Yes [id number] 100mg Take 1 Ke lsey Sodium 1-13 capsule Seybold (Colace) 00:00: (100 mg - 100 MG oral 00 total) by Ext jonathan Capsule mouth l daily Ferrous 0 Yes [id number] 325mg Take 1 Emanuel sey Sulfate 1-13 tablet Seybold (Iron) 325 00:00: (325 mg - (65 Fe) MG 00 total) by Exte rna oral Tablet mouth l daily (with breakfast) Docusate Yes [id number] 100mg Take 1 Ke lsey Sodium 1-13 capsule Seybold (Colace) 00:00: (100 mg - 100 MG oral 00 total) by Ext jonathan Capsule mouth l daily Ferrous Yes [id number] 325mg Take 1 Emanuel sey Sulfate 1-13 tablet Seybold (Iron) 325 00:00: (325 mg - (65 Fe) MG 00 total) by Exte rna oral Tablet mouth l daily (with breakfast) Docusate Yes [id number] 100mg Take 1 Ke lsey Sodium 1-13 capsule Seybold (Colace) 00:00: (100 mg - 100 MG oral 00 total) by Ext jonathan Capsule mouth l daily Docusate 0 Yes [id number] 100mg Take 1 Ke lsey Sodium 1-13 capsule Seybold (Colace) 00:00: (100 mg - 100 MG oral 00 total) by Ext jonathan Capsule mouth l daily Docusate 0 Yes [id number] 100mg Take 1 Ke lsey Sodium 1-13 capsule Seybold (Colace) 00:00: (100 mg - 100 MG oral 00 total) by Ext jontahan Capsule mouth l daily Ferrous 0 Yes [id number] 325mg Take 1 Emanuel sey Sulfate 1-13 tablet Seybold (Iron) 325 00:00: (325 mg - (65 Fe) MG 00 total) by Exte rna oral Tablet mouth l daily (with breakfast) Docusate 0 Yes [id number] 100mg Take 1 Ke lsey Sodium 1-13 capsule Seybold (Colace) 00:00: (100 mg - 100 MG oral 00 total) by Ext jonathan Capsule mouth l daily Ferrous Yes [id number] 325mg Take 1 Emanuel sey Sulfate 1-13 tablet Seybold (Iron) 325 00:00: (325 mg - (65 Fe) MG 00 total) by Exte rna oral Tablet mouth l daily (with breakfast) Docusate 0 Yes [id number] 100mg Take 1 Ke lsey Sodium 1-13 capsule Seybold (Colace) 00:00: (100 mg - 100 MG oral 00 total) by Ext jonathan Capsule mouth l daily Ferrous Yes [id number] 325mg Take 1 Emanuel sey Sulfate 1-13 tablet Seybold (Iron) 325 00:00: (325 mg - (65 Fe) MG 00 total) by Exte rna oral Tablet mouth l daily (with breakfast) Docusate Yes [id number] 100mg Take 1 Ke lsey Sodium 1-13 capsule Seybold (Colace) 00:00: (100 mg - 100 MG oral 00 total) by Ext jonathan Capsule mouth l daily Ferrous Yes [id number] 325mg Take 1 Emanuel sey Sulfate 1-13 tablet Seybold (Iron) 325 00:00: (325 mg - (65 Fe) MG 00 total) by Exte rna oral Tablet mouth l daily (with breakfast) Docusate Yes [id number] 100mg Take 1 Ke lsey Sodium 1-13 capsule Seybold (Colace) 00:00: (100 mg - 100 MG oral 00 total) by Ext jonathan Capsule mouth l daily Ferrous Yes [id number] 325mg Take 1 Emanuel sey Sulfate 1-13 tablet Seybold (Iron) 325 00:00: (325 mg - (65 Fe) MG 00 total) by Exte rna oral Tablet mouth l daily (with breakfast) Docusate Yes [id number] 100mg Take 1 Ke lsey Sodium 1-13 capsule Seybold (Colace) 00:00: (100 mg - 100 MG oral 00 total) by Ext jonathan Capsule mouth l daily Ferrous 0 Yes [id number] 325mg Take 1 Emanuel sey Sulfate 1-13 tablet Seybold (Iron) 325 00:00: (325 mg - (65 Fe) MG 00 total) by Exte rna oral Tablet mouth l daily (with breakfast) Docusate 0 Yes [id number] 100mg Take 1 Ke lsey Sodium 1-13 capsule Seybold (Colace) 00:00: (100 mg - 100 MG oral 00 total) by Ext jonathan Capsule mouth l daily Ferrous 0 Yes [id number] 325mg Take 1 Emanuel sey Sulfate 1-13 tablet Seybold (Iron) 325 00:00: (325 mg - (65 Fe) MG 00 total) by Exte rna oral Tablet mouth l daily (with breakfast) Docusate 0 Yes [id number] 100mg Take 1 Ke lsey Sodium 1-13 capsule Seybold (Colace) 00:00: (100 mg - 100 MG oral 00 total) by Ext jonathan Capsule mouth l daily Ferrous Yes [id number] 325mg Take 1 Emanuel sey Sulfate 1-13 tablet Seybold (Iron) 325 00:00: (325 mg - (65 Fe) MG 00 total) by Exte rna oral Tablet mouth l daily (with breakfast) Nitrofurant 2022- No [id number] 100mg Take 1 Jelena oin Monohyd 1-13 [...] 0 No Unknown 2-03 00:00: 00 Dose 2022-0 No Unknown 2-03 00:00: 00 Dose 2022-0 No Unknown 1-12 00:00: 00 Dose 2022-0 No Unknown 1-12 00:00: 00 Dose 2-0 No Unknown 1-12 00:00: 00 Dose 2022-0 No Unknown 1-11 00:00: 00 Dose 2022-0 No Unknown 1- 00:00: 00 Dose 2022-0 No Unknown 1-11 00:00: 00 Dose 2021-0 No Unknown 1- 00:00: 00 Dose 2021-0 No Unknown 1-11 00:00: 00 Dose 2021-0 No Unknown 1-11 00:00: 00 LYRICA 150 2019-08 Yes [id number] Take 1 [facility] mg capsule 2-21 capsule by ity of 00:00: mouth [place] 00 twice a Medical day for Branch neuropathi c pain as directed by physician. LYRICA 150 2019-08 Yes [id number] Take 1 [facility] mg capsule 2-21 capsule by ity of 00:00: mouth [place] 00 twice a Medical day for Branch neuropathi c pain as directed by physician. LYRICA 150 2019-08 Yes [id number] Take 1 [facility] mg capsule 2-21 capsule by ity of 00:00: mouth [place] 00 twice a Medical day for Branch neuropathi c pain as directed by physician. LYRICA 150 2019-08 Yes [id number] Take 1 [facility] mg capsule 2-21 capsule by ity of 00:00: mouth [place] 00 twice a Medical day for Branch neuropathi c pain as directed by physician. LYRICA 150 2019-08 Yes [id number] Take 1 [facility] mg capsule 2-21 capsule by ity of 00:00: mouth [place] 00 twice a Medical day for Branch neuropathi c pain as directed by physician. LYRICA 150 2019-08 Yes [id number] Take 1 [facility] mg capsule 2-21 capsule by ity of 00:00: mouth [place] 00 twice a Medical day for Branch neuropathi c pain as directed by physician. LYRICA 150 2019-08 Yes [id number] Take 1 [facility] mg capsule 2-21 capsule [...] times Medical daily. Branch ofloxacin 2020-0 Yes [id number] 5[drp] Place 5 [facility] 0.3 % otic 9-17 [id number] Drops in ity of drops 00:00: both ears [place] 00 3 (three) Medical times Branch daily. ofloxacin 2020-0 Yes [id number] 5[drp] Place 5 [facility] 0.3 % otic 9-17 [id number] Drops in ity of drops 00:00: both ears [place] 00 3 (three) Medical times Branch daily. ofloxacin 2020-0 Yes [id number] 5[drp] Place 5 [facility] 0.3 % otic 9-17 [id number] Drops in ity of drops 00:00: both ears [place] 00 3 (three) Medical times Branch daily. ofloxacin 2020-0 Yes [id number] 5[drp] Place 5 [facility] 0.3 % otic 9-17 [id number] Drops in ity of drops 00:00: both ears [place] 00 3 (three) Medical times Branch daily. ofloxacin 2020-0 Yes [id number] 5[drp] Place 5 [facility] 0.3 % otic 9-17 [id number] Drops in ity of drops 00:00: both ears [place] 00 3 (three) Medical times Branch daily. ofloxacin 2020-0 Yes [id number] 5[drp] Place 5 [facility] 0.3 % otic 9-17 [id number] Drops in ity of drops 00:00: both ears [place] 00 3 (three) Medical times Branch daily. ofloxacin 2020-0 Yes [id number] 5[drp] Place 5 [facility] 0.3 % otic 9-17 [id number] Drops in ity of drops 00:00: both ears [place] 00 3 (three) Medical times Branch daily. ofloxacin 2020-0 Yes [id number] 5[drp] Place 5 [facility] 0.3 % otic 9-17 [id number] Drops in ity of drops 00:00: both ears [place] 00 3 (three) Medical times Branch daily. ofloxacin 2020-0 Yes [id number] 5[drp] Place 5 [facility] 0.3 % otic 9-17 [id number] Drops in ity of drops 00:00: both ears [place] 00 3 (three) Medical times Branch daily. ofloxacin 2020-0 Yes [id number] 5[drp] Place 5 [facility] 0.3 % otic 9-17 [id number] Drops in ity of drops 00:00: both ears [place] 00 3 (three) Medical times Branch daily. ofloxacin 2020-0 Yes [id number] 5[drp] Place 5 [facility] 0.3 % otic 9-17 [id number] Drops in ity of drops 00:00: both ears [place] 00 3 (three) Medical times Branch daily. ofloxacin 2020-0 Yes [id number] 5[drp] Place 5 [facility] 0.3 % otic 9-17 [id number] Drops in ity of drops 00:00: both ears [place] 00 3 (three) Medical times Branch daily. ofloxacin 2020-0 Yes [id number] 5[drp] Place 5 [facility] 0.3 % otic 9-17 [id number] Drops in ity of drops 00:00: both ears [place] 00 3 (three) Medical times Branch daily. ofloxacin 2020-0 Yes [id number] 5[drp] Place 5 [facility] 0.3 % otic 05-17 [id number] Drops in ity of drops 00:00: both ears [place] 00 3 (three) Medical times Branch daily. ofloxacin 2019-0 Yes [id number] 5[drp] Place 5 [facility] 0.3 % otic 05-17 [id number] Drops in ity of drops 00:00: both [...] Indication s: acute pain metoprolol 2019- Yes [id number] 50mg Take 1 Un nneka succinate 03-08 tablet by ity o f XL 50 mg 24 00:00: mouth [place] hr tablet 00 daily. Medical Branch hydroCHLORO 2019- Yes [id number] 25mg Take 1 [facility] thiazide 25 03-08 tablet by ity of mg tablet 00:00: mouth [place] 00 daily. Medical Branch baclofen 10 2019- Yes [id number] 10mg Take 1 [facility] mg tablet 03-08 [id number] tablet by ity of 00:00: mouth 3 [place] 00 (three) Medical times Branch daily as needed for Pain (scale 4-6). metoprolol 2020-0 Yes [id number] 50mg Take 1 Un nneka succinate 7-09 tablet by ity o f XL 50 mg 24 00:00: mouth [place] hr tablet 00 daily. Medical Branch hydroCHLORO 2020-0 Yes [id number] 25mg Take 1 [facility] thiazide 25 7-09 tablet by ity of mg tablet 00:00: mouth [place] 00 daily. Medical Branch baclofen 10 2020-0 Yes [id number] 10mg Take 1 [facility] mg tablet [id number]- [id number] tablet by ity of 00:00: mouth 3 [place] 00 (three) Medical times Branch daily as needed for Pain (scale 4-6). metoprolol 2020-0 Yes [id number] 50mg Take 1 Un nneka succinate 7-09 tablet by ity o f XL 50 mg 24 00:00: mouth [place] hr tablet 00 daily. Medical Branch hydroCHLORO 2020-0 Yes [id number] 25mg Take 1 [facility] thiazide 25 7-09 tablet by ity of mg tablet 00:00: mouth [place] 00 daily. Medical Branch baclofen 10 2020-0 Yes [id number] 10mg Take 1 [facility] mg tablet [id number] tablet by ity of 00:00: mouth 3 [place] 00 (three) Medical times Branch daily as needed for Pain (scale 4-6). metoprolol 2020-0 Yes [id number] 50mg Take 1 Un nneka succinate 7-09 tablet by ity o f XL 50 mg 24 00:00: mouth [place] hr tablet 00 daily. Medical Branch hydroCHLORO 2020-0 Yes [id number] 25mg Take 1 [facility] thiazide 25 7-09 tablet by ity of mg tablet 00:00: mouth [place] 00 daily. Medical Branch baclofen 10 2020-0 Yes [id number] 10mg Take 1 [facility] mg tablet [id number]- [id number] tablet by ity of 00:00: mouth 3 [place] 00 (three) Medical times Branch daily as needed for Pain (scale 4-6). metoprolol 2020-0 Yes [id number] 50mg Take 1 Un nneka succinate 7-09 tablet by ity o f XL 50 mg 24 00:00: mouth [place] hr tablet 00 daily. Medical Branch hydroCHLORO 2020-0 Yes [id number] 25mg Take 1 [facility] thiazide 25 7-09 tablet by ity of mg tablet 00:00: mouth [place] 00 daily. Medical Branch baclofen 10 2020-0 Yes [id number] 10mg Take 1 [facility] mg tablet [id number] tablet by ity of 00:00: mouth 3 [place] 00 (three) Medical times Branch daily as needed for Pain (scale 4-6). metoprolol 2020-0 Yes [id number] 50mg Take 1 Un nneka succinate 7-09 tablet by ity o f XL 50 mg 24 00:00: mouth [place] hr tablet 00 daily. Medical Branch hydroCHLORO 2020-0 Yes [id number] 25mg Take 1 [facility] thiazide 25 7-09 tablet by ity of mg tablet 00:00: mouth [place] 00 daily. Medical Branch baclofen 10 2020-0 Yes [id number] 10mg Take 1 [facility] mg tablet 03-08 [id number] tablet by ity of 00:00: mouth 3 [place] 00 (three) Medical times Branch daily as needed for Pain (scale 4-6). metoprolol 2020-0 Yes [id number] 50mg Take 1 Un nneka succinate 7-09 tablet by ity o f XL 50 mg 24 00:00: mouth [place] hr tablet 00 daily. Medical Branch hydroCHLORO 2020-0 Yes [id number] 25mg Take 1 [facility] thiazide 25 7-09 tablet by ity of mg tablet 00:00: mouth [place] 00 daily. Medical Branch baclofen 10 2020-0 Yes [id number] 10mg Take 1 [facility] mg tablet 03-08 [id number] tablet by ity of 00:00: mouth 3 [place] 00 (three) Medical times Branch daily as needed for Pain (scale 4-6). metoprolol 2020-0 Yes [id number] 50mg Take 1 Un nneka succinate 7-09 tablet by ity o f XL 50 mg 24 00:00: mouth [place] hr tablet 00 daily. Medical Branch hydroCHLORO 2020-0 Yes [id number] 25mg Take 1 [facility] thiazide 25 7-09 tablet by ity of mg tablet 00:00: mouth [place] 00 daily. Medical Branch baclofen 10 2020-0 Yes [id number] 10mg Take 1 [facility] mg tablet [id number] tablet by ity of 00:00: mouth 3 [place] 00 (three) Medical times Branch daily as needed for Pain (scale 4-6). metoprolol 2020-0 Yes [id number] 50mg Take 1 Un nneka succinate 7-09 tablet by ity o f XL 50 mg 24 00:00: mouth [place] hr tablet 00 daily. Medical Branch hydroCHLORO 2020-0 Yes [id number] 25mg Take 1 [facility] thiazide 25 7-09 tablet by ity of mg tablet 00:00: mouth [place] 00 daily. Medical Branch baclofen 10 2020-0 Yes [id number] 10mg Take 1 [facility] mg tablet 03-08 [id number] tablet by ity of 00:00: mouth 3 [place] 00 (three) Medical times Branch daily as needed for Pain (scale 4-6). metoprolol 2020-0 Yes [id number] 50mg Take 1 Un nneka succinate 7-09 tablet by ity o f XL 50 mg 24 00:00: mouth [place] hr tablet 00 daily. Medical Branch hydroCHLORO 2020-0 Yes [id number] 25mg Take 1 [facility] thiazide 25 7-09 tablet by ity of mg tablet 00:00: mouth [place] 00 daily. Medical Branch baclofen 10 2019-0 Yes [id number] 10mg Take 1 [facility] mg tablet 03-08 [id number] tablet by ity of 00:00: mouth 3 [place] 00 (three) Medical times Branch daily as needed for Pain (scale 4-6). metoprolol 2020-0 Yes [id number] 50mg Take 1 Un nneka succinate 7-09 tablet by ity o f XL 50 mg 24 00:00: mouth [place] hr tablet 00 daily. Medical Branch hydroCHLORO 2020-0 Yes [id number] 25mg Take 1 [facility] thiazide 25 7-09 tablet by ity of mg tablet 00:00: mouth [place] 00 daily. Medical Branch baclofen 10 2019-0 Yes [id number] 10mg Take 1 [facility] mg tablet 03-08 [id number] tablet by ity of 00:00: mouth 3 [place] 00 (three) Medical times Branch daily as needed for Pain (scale 4-6). metoprolol 2020-0 Yes [id number] 50mg Take 1 Un nneka succinate 7-09 tablet by ity o f XL 50 mg 24 00:00: mouth [place] hr tablet 00 daily. Medical Branch hydroCHLORO 2020-0 Yes [id number] 25mg Take 1 [facility] thiazide 25 7-09 tablet by ity of mg tablet 00:00: mouth [place] 00 daily. Medical Branch baclofen 10 2019-0 Yes [id number] 10mg Take 1 [facility] mg tablet 03-08 [id number] tablet by ity of 00:00: mouth 3 [place] 00 (three) Medical times Branch daily as needed for Pain (scale 4-6). metoprolol 2020-0 Yes [id number] 50mg Take 1 Un nneka succinate 7-09 tablet by ity o f XL 50 mg 24 00:00: mouth [place] hr tablet 00 daily. Medical Branch hydroCHLORO 2020-0 Yes [id number] 25mg Take 1 [facility] thiazide 25 7-09 tablet by [facility] of mg tablet 00:00: mouth [place] 00 daily. [facility] baclofen 10 2020-0 Yes [id number] 10mg Take 1 [facility] mg tablet 7- [id number] tablet by ity of 00:00: mouth 3 [place] 00 (three) Medical times Branch daily as needed for Pain (scale 4-6). metoprolol 2020-0 Yes [id number] 50mg Take 1 Un nneka succinate 7-09 tablet by ity o f XL 50 mg 24 00:00: mouth [place] hr tablet 00 daily. [facility] hydroCHLORO 2020-0 Yes [id number] 25mg Take 1 [facility] thiazide 25 7-09 tablet by ity of mg tablet 00:00: mouth [place] 00 daily. [facility] baclofen 10 2020-0 Yes [id number] 10mg Take 1 [facility] mg tablet 03-08 [id number] tablet by ity of 00:00: mouth 3 [place] 00 (three) Medical times Branch daily as needed for Pain (scale 4-6). metoprolol 2020-0 Yes [id number] 50mg Take 1 [facility] nneka succinate 7-09 tablet by ity o f XL 50 mg 24 00:00: mouth [place] hr tablet 00 daily. [facility] hydroCHLORO 2020-0 Yes [id number] 25mg Take 1 [facility] thiazide 25 7-09 tablet by [facility]y of mg tablet 00:00: mouth [place] 00 daily. [facility] baclofen 10 2020-0 Yes [id number] 10mg Take 1 [facility] mg tablet 7 [id number] tablet by ity of 00:00: mouth 3 [place] 00 (three) Medical times Branch daily as needed for Pain (scale 4-6). metoprolol 2020-0 Yes [id number] 50mg Take 1 [facility] nneka succinate 7-09 tablet by ity o f XL 50 mg 24 00:00: mouth [place] hr tablet 00 daily. [facility] hydroCHLORO 2020-0 Yes [id number] 25mg Take 1 [facility] thiazide 25 7-09 tablet by [facility] of mg tablet 00:00: mouth [place] 00 daily. [facility] baclofen 10 2020-0 Yes [id number] 10mg Take 1 [facility] mg tablet 7- [id number] tablet by ity of 00:00: mouth 3 [place] 00 (three) Medical times Branch daily as needed for Pain (scale 4-6). metoprolol 2020-0 Yes [id number] 50mg Take 1 [facility] nneka succinate 7-09 tablet by ity o f XL 50 mg 24 00:00: mouth [place] hr tablet 00 daily. [facility] hydroCHLORO 2020-0 Yes [id number] 25mg Take 1 [facility] thiazide 25 7-09 tablet by [facility] of mg tablet 00:00: mouth [place] 00 daily. [facility] baclofen 10 2020-0 Yes [id number] 10mg Take 1 [facility] mg tablet 7- [id number] tablet by ity of 00:00: mouth 3 [place] 00 (three) Medical times Branch daily as needed for Pain (scale 4-6). metoprolol 2020-0 Yes [id number] 50mg Take 1 [facility] nneka succinate 7-09 tablet by ity o f XL 50 mg 24 00:00: mouth [place] hr tablet 00 daily. [facility] hydroCHLORO 2020-0 Yes [id number] 25mg Take 1 [facility] thiazide 25 7-09 tablet by [facility] of mg tablet 00:00: mouth [place] 00 daily. [facility] baclofen 10 2019-0 Yes [id number] 10mg Take 1 [facility] mg tablet 03-08 [id number] tablet by ity of 00:00: mouth 3 [place] 00 (three) Medical times Branch daily as needed for Pain (scale 4-6). metoprolol 2020-0 Yes [id number] 50mg Take 1 [facility] nneka succinate 7-09 tablet by ity o f XL 50 mg 24 00:00: mouth [place] hr tablet 00 daily. [facility] hydroCHLORO 2020-0 Yes [id number] 25mg Take 1 [facility] thiazide 25 7-09 tablet by ity of mg tablet 00:00: mouth [place] 00 daily. [facility] baclofen 10 2020-0 Yes [id number] 10mg Take 1 [facility] mg tablet 7- [id number] tablet by ity of 00:00: mouth 3 [place] 00 (three) Medical times Branch daily as needed for Pain (scale 4-6). metoprolol 2020-0 Yes [id number] 50mg Take 1 [facility] nneka succinate 7-09 tablet by ity o f XL 50 mg 24 00:00: mouth [place] hr tablet 00 daily. [facility] hydroCHLORO 2020-0 Yes [id number] 25mg Take 1 [facility] thiazide 25 7-09 tablet by ity of mg tablet 00:00: mouth [place] 00 daily. [facility] baclofen 10 2019-0 Yes [id number] 10mg Take 1 [facility] mg tablet 03-08 [id number] tablet by ity of 00:00: mouth 3 [place] 00 (three) Medical times Branch daily as needed for Pain (scale 4-6). metoprolol 2020-0 Yes [id number] 50mg Take 1 [facility] nneka succinate 7-09 tablet by ity o f XL 50 mg 24 00:00: mouth [place] hr tablet 00 daily. [facility] hydroCHLORO 2019-0 Yes [id number] 25mg Take 1 [facility] thiazide 25 7-09 tablet by ity of mg tablet 00:00: mouth [place] 00 daily. [facility] baclofen 10 2019-0 Yes [id number] 10mg Take 1 [facility] mg tablet 03-08 [id number] tablet by ity of 00:00: mouth 3 [place] 00 (three) Medical times Branch daily as needed for Pain (scale 4-6). metoprolol 2020-0 Yes [id number] 50mg Take 1 [facility] nneka succinate 7-09 tablet by ity o f XL 50 mg 24 00:00: mouth [place] hr tablet 00 daily. [facility] hydroCHLORO 2019-0 Yes [id number] 25mg Take 1 [facility] thiazide 25 7-09 tablet by ity of mg tablet 00:00: mouth [place] 00 daily. [facility] baclofen 10 2019-0 Yes [id number] 10mg Take 1 [facility] mg tablet 03-08 [id number] tablet by ity of 00:00: mouth 3 [place] 00 (three) Medical times Branch daily as needed for Pain (scale 4-6). metoprolol 2020-0 Yes [id number] 50mg Take 1 Un nneka succinate 7-09 tablet by ity o f XL 50 mg 24 00:00: mouth [place] hr tablet 00 daily. [facility] hydroCHLORO 2020-0 Yes [id number] 25mg Take 1 [facility] thiazide 25 7-09 tablet by ity of mg tablet 00:00: mouth [place] 00 daily. [facility] baclofen 10 2019-0 Yes [id number] 10mg Take 1 [facility] mg tablet 7- [id number] tablet by ity of 00:00: mouth 3 [place] 00 (three) Medical times [place] daily as needed for Pain (scale 4-6). metoprolol 2020-0 Yes [id number] 50mg Take 1 [facility] nneka succinate 7-09 tablet by ity o f XL 50 mg 24 00:00: mouth [place] hr tablet 00 daily. [facility] hydroCHLORO 2020-0 Yes [id number] 25mg Take 1 [facility] thiazide 25 7-09 tablet by [facility] of mg tablet 00:00: mouth [place] 00 daily. [facility] baclofen 10 2020-0 Yes [id number] 10mg Take 1 [facility] mg tablet 03-08 [id number] tablet by ity of 00:00: mouth 3 [place] 00 (three) Medical times [place] daily as needed for Pain (scale 4-6). metoprolol 2020-0 Yes [id number] 50mg Take 1 [facility] nneka succinate 7-09 tablet by ity o f XL 50 mg 24 00:00: mouth [place] hr tablet 00 daily. [facility] hydroCHLORO 2020-0 Yes [id number] 25mg Take 1 [facility] thiazide 25 7-09 tablet by ity of mg tablet 00:00: mouth [place] 00 daily. [facility] baclofen 10 2020-0 Yes [id number] 10mg Take 1 [facility] mg tablet 03-08 [id number] tablet by ity of 00:00: mouth 3 [place] 00 (three) Medical times [place] daily as needed for Pain (scale 4-6). DULOXETINE 2020-0 Yes 60mg Take 60 mg U nivers HCL 2-25 by mouth 3 ity of (CYMBALTA 14:58: (three) [place] ORAL) 32 times Medical daily. Branch VITAMIN B 2020-0 Yes Take by Unive rs COMPLEX 2-25 mouth. ity of ORAL 14:58: [place] [address] Medical Branch traZODONE 2020-0 Yes 100mg Take 100 [facility] vers 100 mg 2-25 mg by ity of tablet 14:58: mouth at [place] [address] bedtime. Medical Branch benztropine 2020-0 Yes 1mg Take 1 mg U nivers 1 mg tablet 2-25 by mouth ity of 14:58: daily. [place] [address] Medical Branch DULOXETINE 2020-0 Yes 60mg Take 60 mg U nivers HCL 2-25 by mouth 3 ity of (CYMBALTA 14:58: (three) [place] ORAL) 32 times Medical daily. Branch VITAMIN B 2020-0 Yes Take by Unive rs COMPLEX 2-25 mouth. ity of ORAL 14:58: [place] [address] [facility] Branch traZODONE 2020-0 Yes 100mg Take 100 [facility] vers 100 mg 2-25 mg by ity of tablet 14:58: mouth at [place] [address] bedtime. Medical Branch benztropine 2020-0 Yes 1mg Take 1 mg U nivers 1 mg tablet 2-25 by mouth ity of 14:58: daily. [place] [address] Medical Branch DULOXETINE 2020-0 Yes 60mg Take 60 mg U nivers HCL 2-25 by mouth 3 ity of (CYMBALTA 14:58: (three) [place] ORAL) 32 times Medical daily. Branch VITAMIN B 2020-0 Yes Take by Unive rs COMPLEX 2-25 mouth. ity of ORAL 14:58: [place] [address] [facility] Branch traZODONE 2020-0 Yes 100mg Take 100 [facility] vers 100 mg 2-25 mg by ity of tablet 14:58: mouth at [place] [address] bedtime. Medical Branch benztropine 2020-0 Yes 1mg Take 1 mg U nivers 1 mg tablet 2-25 by mouth ity of 14:58: daily. [place] [address] [facility] Branch DULOXETINE 2020-0 Yes 60mg Take 60 mg U nivers HCL 2-25 by mouth 3 ity of (CYMBALTA 14:58: (three) [place] ORAL) 32 times Medical daily. Branch VITAMIN B 2020-0 Yes Take by Unive rs COMPLEX 2-25 mouth. ity of ORAL 14:58: [place] [address] [facility] Branch traZODONE 2020-0 Yes 100mg Take 100 [facility] vers 100 mg 2-25 mg by ity of tablet 14:58: mouth at [place] [address] bedtime. Medical [facility] benztropine 2020-0 Yes 1mg Take 1 mg U nivers 1 mg tablet 2-25 by mouth ity of 14:58: daily. [place] [address] [facility] DULOXETINE 2020-0 Yes 60mg Take 60 mg U nivers HCL 2-25 by mouth 3 ity of (CYMBALTA 14:58: (three) [place] ORAL) 32 times Medical daily. Branch VITAMIN B 2020-0 Yes Take by Unive rs COMPLEX 2-25 mouth. ity of ORAL 14:58: [place] [address] [facility] Branch traZODONE 2020-0 Yes 100mg Take 100 [facility] vers 100 mg 2-25 mg by ity of tablet 14:58: mouth at [place] [address] bedtime. Medical Branch benztropine 2020-0 Yes 1mg Take 1 mg U nivers 1 mg tablet 2-25 by mouth ity of 14:58: daily. [place] [address] [facility] Branch DULOXETINE 2020-0 Yes 60mg Take 60 mg U nivers HCL 2-25 by mouth 3 ity of (CYMBALTA 14:58: (three) [place] ORAL) 32 times Medical daily. Branch VITAMIN B 2020-0 Yes Take by Unive rs COMPLEX 2-25 mouth. ity of ORAL 14:58: [place] [address] [facility] Branch traZODONE 2020-0 Yes 100mg Take 100 [facility] vers 100 mg 2-25 mg by ity of tablet 14:58: mouth at [place] [address] bedtime. Medical Branch benztropine 2020-0 Yes 1mg Take 1 mg U nivers 1 mg tablet 2-25 by mouth ity of 14:58: daily. [place] [address] [facility] Branch DULOXETINE 2020-0 Yes 60mg Take 60 mg U nivers HCL 2-25 by mouth 3 ity of (CYMBALTA 14:58: (three) [place] ORAL) 32 times Medical daily. Branch VITAMIN B 2020-0 Yes Take by [facility] ers COMPLEX 2-25 mouth. ity of ORAL 14:58: [place] [address] [facility] traZODONE 2020-0 Yes 100mg Take 100 [facility] vers 100 mg 2-25 mg by ity of tablet 14:58: mouth at [place] [address] bedtime. Medical Branch benztropine 2020-0 Yes 1mg Take 1 mg U nivers 1 mg tablet 2-25 by mouth ity of 14:58: daily. [place] [address] [facility] Branch DULOXETINE 2020-0 Yes 60mg Take 60 mg U nivers HCL 2-25 by mouth 3 ity of (CYMBALTA 14:58: (three) [place] ORAL) 32 times Medical daily. Branch VITAMIN B 2020-0 Yes Take by Unive rs COMPLEX 2-25 mouth. ity of ORAL 14:58: [place] [address] [facility] Branch traZODONE 2020-0 Yes 100mg Take 100 [facility] vers 100 mg 2-25 mg by ity of tablet 14:58: mouth at [place] [address] bedtime. Medical Branch benztropine 2020-0 Yes 1mg Take 1 mg U nivers 1 mg tablet 2-25 by mouth ity of 14:58: daily. [place] [address] [facility] Branch DULOXETINE 2020-0 Yes 60mg Take 60 mg U nivers HCL 2-25 by mouth 3 ity of (CYMBALTA 14:58: (three) [place] ORAL) 32 times Medical daily. Branch VITAMIN B 2020-0 Yes Take by Unive rs COMPLEX 2-25 mouth. ity of ORAL 14:58: [place] [address] [facility] Branch traZODONE 2020-0 Yes 100mg Take 100 [facility] vers 100 mg 2-25 mg by ity of tablet 14:58: mouth at [place] [address] bedtime. Medical Branch benztropine 2020-0 Yes 1mg Take 1 mg U nivers 1 mg tablet 2-25 by mouth ity of 14:58: daily. [place] [address] [facility] Branch DULOXETINE 2020-0 Yes 60mg Take 60 mg U nivers HCL 2-25 by mouth 3 ity of (CYMBALTA 14:58: (three) [place] ORAL) 32 times Medical daily. Branch VITAMIN B 2020-0 Yes Take by Unive rs COMPLEX 2-25 mouth. ity of ORAL 14:58: [place] [address] [facility] Branch traZODONE 2020-0 Yes 100mg Take 100 [facility] vers 100 mg 2-25 mg by ity of tablet 14:58: mouth at [place] [address] bedtime. Medical Branch benztropine 2020-0 Yes 1mg Take 1 mg U nivers 1 mg tablet 2-25 by mouth ity of 14:58: daily. [place] [address] [facility] Branch DULOXETINE 2020-0 Yes 60mg Take 60 mg U nivers HCL 2-25 by mouth 3 ity of (CYMBALTA 14:58: (three) [place] ORAL) 32 times Medical daily. Branch VITAMIN B 2020-0 Yes Take by Unive rs COMPLEX 2-25 mouth. ity of ORAL 14:58: [place] [address] [facility] Branch traZODONE 2020-0 Yes 100mg Take 100 [facility] vers 100 mg 2-25 mg by ity of tablet 14:58: mouth at [place] [address] bedtime. Medical Branch benztropine 2020-0 Yes 1mg Take 1 mg U nivers 1 mg tablet 2-25 by mouth ity of 14:58: daily. [place] [address] [facility] DULOXETINE 2020-0 Yes 60mg Take 60 mg U nivers HCL 2-25 by mouth 3 ity of (CYMBALTA 14:58: (three) [place] ORAL) 32 times Medical daily. Branch VITAMIN B 2020-0 Yes Take by Unive rs COMPLEX 2-25 mouth. ity of ORAL 14:58: [place] [address] [facility] traZODONE 2020-0 Yes 100mg Take 100 [facility] vers 100 mg 2-25 mg by ity of tablet 14:58: mouth at [place] [address] bedtime. Medical Branch benztropine 2020-0 Yes 1mg Take 1 mg U nivers 1 mg tablet 2-25 by mouth ity of 14:58: daily. [place] [address] [facility] DULOXETINE 2020-0 Yes 60mg Take 60 mg U nivers HCL 2-25 by mouth 3 ity of (CYMBALTA 14:58: (three) [place] ORAL) 32 times Medical daily. Branch VITAMIN B 2020-0 Yes Take by Unive rs COMPLEX 2-25 mouth. ity of ORAL 14:58: [place] [address] [facility] Branch traZODONE 2020-0 Yes 100mg Take 100 [facility] vers 100 mg 2-25 mg by ity of tablet 14:58: mouth at [place] [address] bedtime. Medical Branch benztropine 2020-0 Yes 1mg Take 1 mg U nivers 1 mg tablet 2-25 by mouth ity of 14:58: daily. [place] [address] [facility] Branch DULOXETINE 2020-0 Yes 60mg Take 60 mg U nivers HCL 2-25 by mouth 3 ity of (CYMBALTA 14:58: (three) [place] ORAL) 32 times Medical daily. Branch VITAMIN B 2020-0 Yes Take by Unive rs COMPLEX 2-25 mouth. ity of ORAL 14:58: [place] [address] [facility] Branch traZODONE 2020-0 Yes 100mg Take 100 [facility] vers 100 mg 2-25 mg by ity of tablet 14:58: mouth at [place] [address] bedtime. Medical Branch benztropine 2020-0 Yes 1mg Take 1 mg U nivers 1 mg tablet 2-25 by mouth ity of 14:58: daily. [place] [address] [facility] Branch DULOXETINE 2020-0 Yes 60mg Take 60 mg U nivers HCL 2-25 by mouth 3 ity of (CYMBALTA 14:58: (three) [place] ORAL) 32 times Medical daily. Branch VITAMIN B 2020-0 Yes Take by Unive rs COMPLEX 2-25 mouth. ity of ORAL 14:58: [place] [address] [facility] Branch traZODONE 2020-0 Yes 100mg Take 100 [facility] vers 100 mg 2-25 mg by ity of tablet 14:58: mouth at [place] [address] bedtime. Medical Branch benztropine 2020-0 Yes 1mg Take 1 mg U nivers 1 mg tablet 2-25 by mouth ity of 14:58: daily. [place] [address] [facility] Branch DULOXETINE 2020-0 Yes 60mg Take 60 mg U nivers HCL 2-25 by mouth 3 ity of (CYMBALTA 14:58: (three) [place] ORAL) 32 times Medical daily. Branch VITAMIN B 2020-0 Yes Take by Unive rs COMPLEX 2-25 mouth. ity of ORAL 14:58: [place] [address] [facility] Branch traZODONE 2020-0 Yes 100mg Take 100 [facility] vers 100 mg 2-25 mg by ity of tablet 14:58: mouth at [place] [address] bedtime. Medical Branch benztropine 2020-0 Yes 1mg Take 1 mg U nivers 1 mg tablet 2-25 by mouth ity of 14:58: daily. [place] [address] [facility] Branch DULOXETINE 2020-0 Yes 60mg Take 60 mg U nivers HCL 2-25 by mouth 3 ity of (CYMBALTA 14:58: (three) [place] ORAL) 32 times Medical daily. Branch VITAMIN B 2020-0 Yes Take by Unive rs COMPLEX 2-25 mouth. ity of ORAL 14:58: [place] [address] [facility] traZODONE 2020-0 Yes 100mg Take 100 [facility] vers 100 mg 2-25 mg by ity of tablet 14:58: mouth at [place] [address] bedtime. Medical Branch benztropine 2020-0 Yes 1mg Take 1 mg U nivers 1 mg tablet 2-25 by mouth ity of 14:58: daily. [place] [address] [facility] Branch VITAMIN B 2020-0 Yes Take by Unive rs COMPLEX 2-25 mouth. ity of ORAL 14:58: [place] [address] [facility] traZODONE 2020-0 Yes 100mg Take 100 [facility] vers 100 mg 2-25 mg by ity of tablet 14:58: mouth at [place] [address] bedtime. Medical Branch benztropine 2020-0 Yes 1mg Take 1 mg U nivers 1 mg tablet 2-25 by mouth ity of 14:58: daily. [place] [address] [facility] VITAMIN B 2020-0 Yes Take by Unive rs COMPLEX 2-25 mouth. ity of ORAL 14:58: [place] [address] [facility] traZODONE 2020-0 Yes 100mg Take 100 [facility] vers 100 mg 2-25 mg by ity of tablet 14:58: mouth at [place] [address] bedtime. Medical Branch benztropine 2020-0 Yes 1mg Take 1 mg U nivers 1 mg tablet 2-25 by mouth ity of 14:58: daily. [address] Branch VITAMIN B 2020-0 Yes Take by Unive rs COMPLEX 2-25 mouth. ity of ORAL 14:58: [address] Branch traZODONE 2020-0 Yes 100mg Take 100 [facility] vers 100 mg 2-25 mg by ity of tablet 14:58: mouth at [place] [address] bedtime. Medical Branch benztropine 2020-0 Yes 1mg Take 1 mg U nivers 1 mg tablet 2-25 by mouth ity of 14:58: daily. [address] VITAMIN B 2020-0 Yes Take by Unive rs COMPLEX 2-25 mouth. ity of ORAL 14:58: [address] traZODONE 2020-0 Yes 100mg Take 100 [facility] vers 100 mg 2-25 mg by ity of tablet 14:58: mouth at [place] [address] bedtime. Medical Branch benztropine 2020-0 Yes 1mg Take 1 mg U nivers 1 mg tablet 2-25 by mouth ity of 14:58: daily. [address] VITAMIN B 2020-0 Yes Take by Unive rs COMPLEX 2-25 mouth. ity of ORAL 14:58: [address] traZODONE 2020-0 Yes 100mg Take 100 [facility] vers 100 mg 2-25 mg by ity of tablet 14:58: mouth at [place] [address] bedtime. Medical Branch benztropine 2020-0 Yes 1mg Take 1 mg U nivers 1 mg tablet 2-25 by mouth ity of 14:58: daily. [address] VITAMIN B 2020-0 Yes Take by Unive rs COMPLEX 2-25 mouth. ity of ORAL 14:58: [address] traZODONE 2020-0 Yes 100mg Take 100 [facility] vers 100 mg 2-25 mg by ity of tablet 14:58: mouth at [place] [address] bedtime. Medical Branch benztropine 2020-0 Yes 1mg Take 1 mg U nivers 1 mg tablet 2-25 by mouth ity of 14:58: daily. [address] VITAMIN B 2020-0 Yes Take by Unive rs COMPLEX 2-25 mouth. ity of ORAL 14:58: [address] traZODONE 2020-0 Yes 100mg Take 100 [facility] vers 100 mg 2-25 mg by ity of tablet 14:58: mouth at [place] [address] bedtime. Medical Branch benztropine 2020-0 Yes 1mg Take 1 mg U nivers 1 mg tablet 2-25 by mouth ity of 14:58: daily. [address] VITAMIN B 2020-0 Yes Take by Unive rs COMPLEX 2-25 mouth. ity of ORAL 14:58: [address] traZODONE 2020-0 Yes 100mg Take 100 [facility] vers 100 mg 2-25 mg by ity of tablet 14:58: mouth at [place] [address] bedtime. Medical Branch benztropine 2020-0 Yes 1mg Take 1 mg U nivers 1 mg tablet 2-25 by mouth ity of 14:58: daily. [address] VITAMIN B 2020-0 Yes Take by Unive rs COMPLEX 2-25 mouth. ity of ORAL 14:58: [address] traZODONE 2020-0 Yes 100mg Take 100 [facility] vers 100 mg 2-25 mg by ity of tablet 14:58: mouth at [place] [address] bedtime. Medical Branch benztropine 2020-0 Yes 1mg Take 1 mg U nivers 1 mg tablet 2-25 by mouth ity of 14:58: daily. [address] VITAMIN B 2020-0 Yes Take by Unive rs COMPLEX 2-25 mouth. ity of ORAL 14:58: [address] traZODONE 2020-0 Yes 100mg Take 100 [facility] vers 100 mg 2-25 mg by ity of tablet 14:58: mouth at [place] [address] bedtime. Medical Branch benztropine 2020-0 Yes 1mg Take 1 mg U nivers 1 mg tablet 2-25 by mouth ity of 14:58: daily. [address] VITAMIN B 2020-0 Yes Take by Unive rs COMPLEX 2-25 mouth. ity of ORAL 14:58: [address] traZODONE 2020-0 Yes 100mg Take 100 [facility] vers 100 mg 2-25 mg by ity of tablet 14:58: mouth at [place] [address] bedtime. Medical Branch benztropine 2020-0 Yes 1mg Take 1 mg U nivers 1 mg tablet 2-25 by mouth ity of 14:58: daily. [address] VITAMIN B 2020-0 Yes Take by Unive rs COMPLEX 2-25 mouth. ity of ORAL 14:58: [address] Branch traZODONE 2020-0 Yes 100mg Take 100 [facility] vers 100 mg 2-25 mg by ity of tablet 14:58: mouth at [place] [address] bedtime. Medical Branch benztropine 2020-0 Yes 1mg Take 1 mg U nivers 1 mg tablet 2-25 by mouth ity of 14:58: daily. [address] Branch VITAMIN B 2020-0 Yes Take by Unive rs COMPLEX 2-25 mouth. ity of ORAL 14:58: [place] [address] [facility] Branch traZODONE 2020-0 Yes 100mg Take 100 [facility] vers 100 mg 2-25 mg by ity of tablet 14:58: mouth at [place] [address] bedtime. Medical [facility] benztropine 2020-0 Yes 1mg Take 1 mg U nivers 1 mg tablet 2-25 by mouth ity of 14:58: daily. [address] VITAMIN B 2020-0 Yes Take by Unive rs COMPLEX 2-25 mouth. ity of ORAL 14:58: [address] Branch traZODONE 2020-0 Yes 100mg Take 100 [facility] vers 100 mg 2-25 mg by ity of tablet 14:58: mouth at [place] [address] bedtime. Medical Branch benztropine 2020-0 Yes 1mg Take 1 mg U nivers 1 mg tablet 2-25 by mouth ity of 14:58: daily. [address] VITAMIN B 2020-0 Yes Take by Unive rs COMPLEX 2-25 mouth. ity of ORAL 14:58: [address] Branch traZODONE 2020-0 Yes 100mg Take 100 [facility] vers 100 mg 2-25 mg by ity of tablet 14:58: mouth at [place] [address] bedtime. Medical Branch benztropine 2020-0 Yes 1mg Take 1 mg U nivers 1 mg tablet 2-25 by mouth ity of 14:58: daily. [address] Branch aripiprazol 2020-0 Yes 5mg Take 5 mg U nivers e (ABILIFY 2-25 by mouth 2 ity of ORAL) 14:58: (two) [place] [id number] times Medical daily. Branch ARIPiprazol 2020-0 Yes 10mg Take 10 mg [facility] e 10 mg 2-25 by mouth 2 ity of tablet 14:58: (two) [place] 06 times Medical daily. Branch aripiprazol 2020-0 [...] 2-24 by mouth ity of 17:16: daily. [place] [address] Medical Branch ARIPiprazol 2020-0 Yes 10mg Take [...] 2-24 by mouth ity of 17:16: daily. [place] [address] Medical Branch ARIPiprazol 2020-0 Yes 10mg Take [...] 2-24 by mouth ity of 17:16: daily. [place] [address] Medical Branch ARIPiprazol 2020-0 Yes 10mg Take [...] by ity of tablet 17:15: mouth at [place] [address] bedtime. Medical Branch DULOXETINE 2020-0 Yes 60mg [...] by ity of tablet 17:15: mouth at [place] [address] bedtime. Medical Branch DULOXETINE 2020-0 Yes 60mg Take 60 mg U nivers HCL 2-24 by mouth 3 ity of (CYMBALTA 17:15: (three) [place] ORAL) 45 times Medical daily. Branch VITAMIN B 2020-0 Yes Take by Unive rs COMPLEX 2-24 mouth. ity of ORAL 17:15: [place] [address] Medical Branch traZODONE 2020-0 Yes 100mg Take 100 [facility] vers 100 mg 2-24 mg by ity of tablet 17:15: mouth at [place] [address] bedtime. Medical Branch OLANZapine 2020-0 2020- No [...] :00 times Medical daily. Branch OLANZapine 0 2019- No 10mg Take 10 mg [facility] (ZYPREXA) 2-24 02-24 by mouth 2 ity of 10 mg 17:15: 00:00 (two) [place] tablet 26 :00 times Medical daily. Branch DULoxetine 2019- No Take 3 [facility] ers 30 mg 2-24 02-24 capsules ity of capsule 17:15: 00:00 by mouth [place] 09 :00 daily. Medical Branch DULoxetine 0 2019- No Take 3 [facility] ers 30 mg 2-24 02-24 capsules ity of capsule 17:15: 00:00 by mouth [place] 09 :00 daily. Medical [facility] DULoxetine 2019-0 2019- No Take 3 [facility] ers 30 mg 2-24 02-24 capsules ity of capsule 17:15: 00:00 by mouth [place] 09 :00 daily. Medical Branch metoprolol 2020-0 Yes [id number] 50mg Take 1 Un nneka succinate 2-24 tablet by ity o f XL 50 mg 24 00:00: mouth [place] hr tablet 00 daily. [facility] metoprolol 2020-0 Yes [id number] 50mg Take 1 Un nneka succinate 2-24 tablet by ity o f XL 50 mg 24 00:00: mouth [place] hr tablet 00 daily. [facility] metoprolol 2020-0 Yes [id number] 50mg Take 1 Un nneka succinate 2-24 tablet by ity o f XL 50 mg 24 00:00: mouth [place] hr tablet 00 daily. [facility] metoprolol 2020-0 Yes [id number] 50mg Take 1 Un nneka succinate 2-24 tablet by ity o f XL 50 mg 24 00:00: mouth [place] hr tablet 00 daily. [facility] metoprolol 2020-0 Yes [id number] 50mg Take 1 Un nneka succinate 2-24 tablet by ity o f XL 50 mg 24 00:00: mouth [place] hr tablet 00 daily. [facility] metoprolol 2020-0 Yes [id number] 50mg Take 1 Un nneka succinate 2-24 tablet by ity o f XL 50 mg 24 00:00: mouth [place] hr tablet 00 daily. [facility] metoprolol 2020-0 Yes [id number] 50mg Take 1 Un nneka succinate 2-24 tablet by ity o f XL 50 mg 24 00:00: mouth [place] hr tablet 00 daily. [facility] metoprolol 2020-0 Yes [id number] 50mg Take 1 Un nneka succinate 2-24 tablet by ity o f XL 50 mg 24 00:00: mouth [place] hr tablet 00 daily. [facility] metoprolol 2020-0 Yes [id number] 50mg Take 1 Un nneka succinate 2-24 tablet by ity o f XL 50 mg 24 00:00: mouth [place] hr tablet 00 daily. [facility] metoprolol 2019-0 Yes [id number] 50mg Take 1 Un nneka succinate 2-24 tablet by ity o f XL 50 mg 24 00:00: mouth [place] hr tablet 00 daily. [facility] metoprolol 2019-0 2020- No [id number] 50mg Take 1 U nivers succinate 2-24 07-09 tablet by ity of XL 50 mg 24 00:00: 00:00 mouth [place] tablet 00 :00 daily. [facility] metoprolol 2019-0 2020- No [id number] 50mg Take 1 U nivers succinate 2-24 -09 tablet by ity of XL 50 mg 24 00:00: 00:00 mouth [place] hr tablet 00 :00 daily. [facility] metoprolol 0 2020- No [id number] 50mg Take 1 U nivers succinate 2-24 07-09 tablet by ity of XL 50 mg 24 00:00: 00:00 mouth [place] tablet 00 :00 daily. [facility] metoprolol 2019-0 2020- No [id number] 50mg Take 1 U nivers succinate 2-24 07-09 tablet by ity of XL 50 mg 24 00:00: 00:00 mouth [place] hr tablet 00 :00 daily. [facility] hydroCHLORO 2020-0 Yes [id number] 25mg Take 1 [facility] thiazide 25 1-30 tablet by [facility] of mg tablet 00:00: mouth [place] 00 daily. [facility] meloxicam 2020-0 Yes [id number] 15mg Take 1 U nivers 15 mg 1-30 tablet by ity of tablet 00:00: mouth [place] 00 daily. [facility] metoprolol 2020-0 Yes [id number] 25mg Take 1 Un nneka succinate 1-30 tablet by ity o f XL 25 mg 24 00:00: mouth [place] hr tablet 00 daily. [facility] pregabalin 2020-0 Yes [id number] 150mg Take 1 [facility] (LYRICA) 1-30 capsule by ity o f 150 mg 00:00: mouth 2 [place] capsule 00 (two) Medical times Branch daily. hydroCHLORO 2020-0 Yes [id number] 25mg Take 1 [facility] thiazide 25 1-30 tablet by ity of mg tablet 00:00: mouth [place] 00 daily. [facility] meloxicam 2020-0 Yes [id number] 15mg Take 1 U nivers 15 mg 1-30 tablet by [facility] of tablet 00:00: mouth [place] 00 daily. [facility] metoprolol 2020-0 Yes [id number] 25mg Take 1 Un nneka succinate 1-30 tablet by ity o f XL 25 mg 24 00:00: mouth [place] hr tablet 00 daily. [facility] pregabalin 2020-0 Yes [id number] 150mg Take 1 [facility] (LYRICA) 1-30 capsule by ity o f 150 mg 00:00: mouth 2 [place] capsule 00 (two) Medical times Branch daily. hydroCHLORO 2020-0 Yes [id number] 25mg Take 1 [facility] thiazide 25 1-30 tablet by ity of mg tablet 00:00: mouth [place] 00 daily. [facility] meloxicam 2020-0 Yes [id number] 15mg Take 1 U nivers 15 mg 1-30 tablet by [facility] of tablet 00:00: mouth [place] 00 daily. [facility] pregabalin 2020-0 Yes [id number] 150mg Take 1 [facility] (LYRICA) 1-30 capsule by ity o f 150 mg 00:00: mouth 2 [place] capsule 00 (two) Medical times Branch daily. hydroCHLORO 2020-0 Yes [id number] 25mg Take 1 [facility] thiazide 25 1-30 tablet by ity of mg tablet 00:00: mouth [place] 00 daily. [facility] meloxicam 2020-0 Yes [id number] 15mg Take 1 U nivers 15 mg 1-30 tablet by [facility] of tablet 00:00: mouth [place] 00 daily. [facility] pregabalin 2020-0 Yes [id number] 150mg Take 1 [facility] (LYRICA) 1-30 capsule by ity o f 150 mg 00:00: mouth 2 [place] capsule 00 (two) Medical times Branch daily. hydroCHLORO 2020-0 Yes [id number] 25mg Take 1 [facility] thiazide 25 1-30 tablet by ity of mg tablet 00:00: mouth [place] 00 daily. [facility] meloxicam 2020-0 Yes [id number] 15mg Take 1 U nivers 15 mg 1-30 tablet by ity of tablet 00:00: mouth [place] 00 daily. [facility] pregabalin 2020-0 Yes [id number] 150mg Take 1 [facility] (LYRICA) 1-30 capsule by ity o f 150 mg 00:00: mouth 2 [place] capsule 00 (two) Medical times [place] daily. hydroCHLORO 2020-0 Yes [id number] 25mg Take 1 [facility] thiazide 25 1-30 tablet by ity of mg tablet 00:00: mouth [place] 00 daily. [facility] meloxicam 2020-0 Yes [id number] 15mg Take 1 [facility] nivers 15 mg 1-30 tablet by [facility]y of tablet 00:00: mouth [place] 00 daily. [facility] pregabalin 2020-0 Yes [id number] 150mg Take 1 [facility] (LYRICA) 1-30 capsule by ity o f 150 mg 00:00: mouth 2 [place] capsule 00 (two) Medical times [place] daily. hydroCHLORO 2020-0 Yes [id number] 25mg Take 1 [facility] thiazide 25 1-30 tablet by ity of mg tablet 00:00: mouth [place] 00 daily. [facility] meloxicam 2020-0 Yes [id number] 15mg Take 1 [facility] nivers 15 mg 1-30 tablet by ity of tablet 00:00: mouth [place] 00 daily. [facility] pregabalin 2020-0 Yes [id number] 150mg Take 1 [facility] (LYRICA) 1-30 capsule by ity o f 150 mg 00:00: mouth 2 [place] capsule 00 (two) Medical times [place] daily. hydroCHLORO 2020-0 Yes [id number] 25mg Take 1 [facility] thiazide 25 1-30 tablet by ity of mg tablet 00:00: mouth [place] 00 daily. [facility] meloxicam 2020-0 Yes [id number] 15mg Take 1 [facility] nivers 15 mg 1-30 tablet by ity of tablet 00:00: mouth [place] 00 daily. [facility] pregabalin 2020-0 Yes [id number] 150mg Take 1 [facility] (LYRICA) 1-30 capsule by ity o f 150 mg 00:00: mouth 2 [place] capsule 00 (two) Medical times [place] daily. hydroCHLORO 2020-0 Yes [id number] 25mg Take 1 [facility] thiazide 25 1-30 tablet by ity of mg tablet 00:00: mouth [place] 00 daily. [facility] meloxicam 2020-0 Yes [id number] 15mg Take 1 [facility] nivers 15 mg 1-30 tablet by ity of tablet 00:00: mouth [place] 00 daily. [facility] pregabalin 2020-0 Yes [id number] 150mg Take 1 [facility] (LYRICA) 1-30 capsule by ity o f 150 mg 00:00: mouth 2 [place] capsule 00 (two) Medical times [place] daily. hydroCHLORO 2020-0 Yes [id number] 25mg Take 1 [facility] thiazide 25 1-30 tablet by ity of mg tablet 00:00: mouth [place] 00 daily. [facility] meloxicam 2020-0 Yes [id number] 15mg Take 1 [facility] nivers 15 mg 1-30 tablet by ity of tablet 00:00: mouth [place] 00 daily. [facility] pregabalin 2020-0 Yes [id number] 150mg Take 1 [facility] (LYRICA) 1-30 capsule by ity o f 150 mg 00:00: mouth 2 [place] capsule 00 (two) Medical times [place] daily. hydroCHLORO 2020-0 Yes [id number] 25mg Take 1 [facility] thiazide 25 1-30 tablet by ity of mg tablet 00:00: mouth [place] 00 daily. [facility] meloxicam 2020-0 Yes [id number] 15mg Take 1 [facility] nivers 15 mg 1-30 tablet by ity of tablet 00:00: mouth [place] 00 daily. [facility] pregabalin 2020-0 Yes [id number] 150mg Take 1 [facility] (LYRICA) 1-30 capsule by ity o f 150 mg 00:00: mouth 2 [place] capsule 00 (two) Medical times Branch daily. hydroCHLORO 2020-0 Yes [id number] 25mg Take 1 [facility] thiazide 25 1-30 tablet by ity of mg tablet 00:00: mouth [place] 00 daily. [facility] meloxicam 2020-0 Yes [id number] 15mg Take 1 [facility] nivers 15 mg 1-30 tablet by ity of tablet 00:00: mouth [place] 00 daily. [facility] pregabalin 2020-0 Yes [id number] 150mg Take 1 [facility] (LYRICA) 1-30 capsule by ity o f 150 mg 00:00: mouth 2 [place] capsule 00 (two) Medical times [place] daily. meloxicam 2020-0 Yes [id number] 15mg Take 1 [facility] nivers 15 mg 1-30 tablet by ity of tablet 00:00: mouth [place] 00 daily. [facility] pregabalin 2020-0 Yes [id number] 150mg Take 1 [facility] (LYRICA) 1-30 capsule by ity o f 150 mg 00:00: mouth 2 [place] capsule 00 (two) Medical times Branch daily. meloxicam 2020-0 Yes [id number] 15mg Take 1 [facility] nivers 15 mg 1-30 tablet by ity of tablet 00:00: mouth [place] 00 daily. [facility] pregabalin 2020-0 Yes [id number] 150mg Take 1 [facility] (LYRICA) 1-30 capsule by ity o f 150 mg 00:00: mouth 2 [place] capsule 00 (two) Medical times Branch daily. meloxicam 2020-0 Yes [id number] 15mg Take 1 [facility] nivers 15 mg 1-30 tablet by ity of tablet 00:00: mouth [place] 00 daily. [facility] pregabalin 2020-0 Yes [id number] 150mg Take 1 [facility] (LYRICA) 1-30 capsule by ity o f 150 mg 00:00: mouth 2 [place] capsule 00 (two) Medical times Branch daily. meloxicam 2020-0 Yes [id number] 15mg Take 1 [facility] nivers 15 mg 1-30 tablet by ity of tablet 00:00: mouth [place] 00 daily. [facility] pregabalin 2020-0 Yes [id number] 150mg Take 1 [facility] (LYRICA) 1-30 capsule by ity o f 150 mg 00:00: mouth 2 [place] capsule 00 (two) Medical times Branch daily. meloxicam 2020-0 Yes [id number] 15mg Take 1 [facility] nivers 15 mg 1-30 tablet by ity of tablet 00:00: mouth [place] 00 daily. [facility] pregabalin 2020-0 Yes [id number] 150mg Take 1 [facility] (LYRICA) 1-30 capsule by ity o f 150 mg 00:00: mouth 2 [place] capsule 00 (two) Medical times Branch daily. meloxicam 2020-0 Yes [id number] 15mg Take 1 [facility] nivers 15 mg 1-30 tablet by ity of tablet 00:00: mouth [place] 00 daily. [facility] pregabalin 2020-0 Yes [id number] 150mg Take 1 [facility] (LYRICA) 1-30 capsule by ity o f 150 mg 00:00: mouth 2 [place] capsule 00 (two) Medical times Branch daily. meloxicam 2020-0 Yes [id number] 15mg Take 1 U nivers 15 mg 1-30 tablet by ity of tablet 00:00: mouth [place] 00 daily. [facility] pregabalin 2020-0 Yes [id number] 150mg Take 1 [facility] (LYRICA) 1-30 capsule by ity o f 150 mg 00:00: mouth 2 [place] capsule 00 (two) Medical times Branch daily. meloxicam 2020-0 Yes [id number] 15mg Take 1 [facility] nivers 15 mg 1-30 tablet by ity of tablet 00:00: mouth [place] 00 daily. [facility] pregabalin 2020-0 Yes [id number] 150mg Take 1 [facility] (LYRICA) 1-30 capsule by ity o f 150 mg 00:00: mouth 2 [place] capsule 00 (two) Medical times Branch daily. meloxicam 2020-0 Yes [id number] 15mg Take 1 [facility] nivers 15 mg 1-30 tablet by ity of tablet 00:00: mouth [place] 00 daily. [facility] pregabalin 2020-0 Yes [id number] 150mg Take 1 [facility] (LYRICA) 1-30 capsule by ity o f 150 mg 00:00: mouth 2 [place] capsule 00 (two) Medical times Branch daily. meloxicam 2020-0 Yes [id number] 15mg Take 1 U nivers 15 mg 1-30 tablet by ity of tablet 00:00: mouth [place] 00 daily. [facility] pregabalin 2020-0 Yes [id number] 150mg Take 1 [facility] (LYRICA) 1-30 capsule by ity o f 150 mg 00:00: mouth 2 [place] capsule 00 (two) Medical times Branch daily. meloxicam 2020-0 Yes [id number] 15mg Take 1 U nivers 15 mg 1-30 tablet by ity of tablet 00:00: mouth [place] 00 daily. [facility] pregabalin 2020-0 Yes [id number] 150mg Take 1 [facility] (LYRICA) 1-30 capsule by ity o f 150 mg 00:00: mouth 2 [place] capsule 00 (two) Medical times Branch daily. meloxicam 2020-0 Yes [id number] 15mg Take 1 U nivers 15 mg 1-30 tablet by ity of tablet 00:00: mouth [place] 00 daily. [facility] pregabalin 2020-0 Yes [id number] 150mg Take 1 [facility] (LYRICA) 1-30 capsule by ity o f 150 mg 00:00: mouth 2 [place] capsule 00 (two) Medical times Branch daily. meloxicam 2020-0 Yes [id number] 15mg Take 1 U nivers 15 mg 1-30 tablet by ity of tablet 00:00: mouth [place] 00 daily. [facility] pregabalin 2020-0 Yes [id number] 150mg Take 1 [facility] (LYRICA) 1-30 capsule by ity o f 150 mg 00:00: mouth 2 [place] capsule 00 (two) Medical times Branch daily. meloxicam 2020-0 Yes [id number] 15mg Take 1 U nivers 15 mg 1-30 tablet by ity of tablet 00:00: mouth [place] 00 daily. [facility] pregabalin 2020-0 Yes [id number] 150mg Take 1 [facility] (LYRICA) 1-30 capsule by ity o f 150 mg 00:00: mouth 2 [place] capsule 00 (two) Medical times Branch daily. meloxicam 2020-0 Yes [id number] 15mg Take 1 [facility] nivers 15 mg 1-30 tablet by ity of tablet 00:00: mouth [place] 00 daily. [facility] pregabalin 2020-0 Yes [id number] 150mg Take 1 [facility] (LYRICA) 1-30 capsule by ity o f 150 mg 00:00: mouth 2 [place] capsule 00 (two) Medical times Branch daily. meloxicam 2020-0 Yes [id number] 15mg Take 1 U nivers 15 mg 1-30 tablet by ity of tablet 00:00: mouth [place] 00 daily. [facility] pregabalin 2020-0 Yes [id number] 150mg Take 1 [facility] (LYRICA) 1-30 capsule by ity o f 150 mg 00:00: mouth 2 [place] capsule 00 (two) Medical times [facility] daily. meloxicam 2020-0 Yes [id number] 15mg Take 1 U nivers 15 mg 1-30 tablet by ity of tablet 00:00: mouth [place] 00 daily. [facility] pregabalin 2020-0 Yes [id number] 150mg Take 1 [facility] (LYRICA) 1-30 capsule by ity o f 150 mg 00:00: mouth 2 [place] capsule 00 (two) Medical times Branch daily. meloxicam 2019-0 Yes [id number] 15mg Take 1 U nivers 15 mg 1-30 tablet by ity of tablet 00:00: mouth [place] 00 daily. [facility] meloxicam 2019-0 Yes [id number] 15mg Take 1 [facility] nivers 15 mg 1-30 tablet by ity of tablet 00:00: mouth [place] 00 daily. [facility] meloxicam 2019-0 Yes [id number] 15mg Take 1 U nivers 15 mg 1-30 tablet by ity of tablet 00:00: mouth [place] 00 daily. [facility] meloxicam 2019-0 Yes [id number] 15mg Take 1 U nivers 15 mg 1-30 tablet by ity of tablet 00:00: mouth [place] 00 daily. [facility] meloxicam 2019-0 Yes [id number] 15mg Take 1 U nivers 15 mg 1-30 tablet by ity of tablet 00:00: mouth [place] 00 daily. [facility] meloxicam 2019-0 Yes [id number] 15mg Take 1 U nivers 15 mg 1-30 tablet by ity of tablet 00:00: mouth [place] 00 daily. [facility] meloxicam 2019-0 Yes [id number] 15mg Take 1 U nivers 15 mg 1-30 tablet by ity of tablet 00:00: mouth [place] 00 daily. [facility] meloxicam 2019-0 Yes [id number] 15mg Take 1 U nivers 15 mg 1-30 tablet by ity of tablet 00:00: mouth [place] 00 daily. [facility] pregabalin 2019-0 2020- No [id number] 150mg Take 1 [facility] (LYRICA) 1-30 12-21 capsule by ity of 150 mg 00:00: 00:00 mouth 2 [place] capsule 00 :00 (two) Medical times Branch daily. hydroCHLORO 2019-0 2020- No [id number] 25mg Take 1 [facility] thiazide 25 1-30 07-09 tablet by it y of mg tablet 00:00: 00:00 mouth [place] 00 :00 daily. [facility] hydroCHLORO 2019- 2020- No [id number] 25mg Take 1 [facility] thiazide 25 1-30 07-09 tablet by it y of mg tablet 00:00: 00:00 mouth [place] 00 :00 daily. [facility] hydroCHLORO 2019- 2020- No [id number] 25mg Take 1 [facility] thiazide 25 1-30 07-09 tablet by it y of mg tablet 00:00: 00:00 mouth [place] 00 :00 daily. [facility] hydroCHLORO 2020- No [id number] 25mg Take 1 [facility] thiazide 25 30 07-09 tablet by it y of mg tablet 00:00: 00:00 mouth [place] 00 :00 daily. [facility] metoprolol 2019- No [id number] 25mg Take 1 U nivers succinate 30 -24 tablet by ity of XL 25 mg 24 00:00: 00:00 [place] hr tablet 00 :00 daily. [facility] metoprolol 2019- No [id number] 25mg Take 1 U nivers succinate 30 -24 tablet by ity of XL 25 mg 24 00:00: 00:00 [place] hr tablet 00 :00 daily. [facility] metoprolol 2019- No [id number] 25mg Take 1 U nivers succinate 09-29-24 tablet by ity of XL 25 mg [...] by ity of tablet 17:11: mouth at [place] 25 bedtime. [facility] Branch VITAMIN B 2018-08 Yes Take by Unive rs COMPLEX 0-31 mouth. ity of ORAL 17:11: [place] [address] [facility] Branch traZODONE 2018-08 Yes 100mg Take 100 [facility] vers 100 mg 0-31 mg by ity of tablet 17:11: mouth at [place] [address] bedtime. [facility] VITAMIN B 2018-08 Yes Take by Unive rs COMPLEX 0-31 mouth. ity of ORAL 17:11: [place] [address] [facility] Branch traZODONE 2018-08 Yes 100mg Take 100 [facility] vers 100 mg 0-31 mg by ity of tablet 17:11: mouth at [place] [address] bedtime. [facility] VITAMIN B 2018-08 Yes Take by Unive rs COMPLEX 0-31 mouth. ity of ORAL 17:11: [place] [address] [facility] Branch traZODONE 2018-08 Yes 100mg Take 100 [facility] vers 100 mg 0-31 mg by ity of tablet 17:11: mouth at [place] [address] bedtime. [facility] traZODONE Yes 100mg Take 100 [facility] vers 100 mg 8-29 mg by ity of tablet 19:24: mouth at [place] [address] bedtime. Medical Branch traZODONE Yes 100mg Take 100 [facility] vers 100 mg 8-29 mg by ity of tablet 19:24: mouth at [place] [address] bedtime. [facility] traZODONE Yes 100mg Take 100 [facility] vers 100 mg 8-29 mg by ity of tablet 19:24: mouth at [place] [address] bedtime. [facility] Branch traZODONE Yes 100mg Take 100 [facility] vers 100 mg 8-29 mg by ity of tablet 19:24: mouth at [place] [address] bedtime. [facility] traZODONE Yes 100mg Take 100 [facility] vers 100 mg 8-29 mg by ity of tablet 19:24: mouth at [place] [address] bedtime. [facility] Branch traZODONE Yes 100mg Take 100 [facility] vers 100 mg 8-29 mg by ity of tablet 19:24: mouth at [place] [address] bedtime. Medical Branch benztropine Yes 1mg Take 1 mg U nivers 1 mg tablet 8-29 by mouth ity of 14:39: daily. [place] 21 [facility] ARIPiprazol Yes 10mg Take 10 mg [facility] e 10 mg 8-29 by mouth 2 ity of tablet 14:39: (two) [place] 21 times Medical daily. Branch DULoxetine Yes [...] by mouth ity of 14:39: daily. [place] [facility] ARIPiprazol Yes 10mg Take 10 [...] by mouth ity of 14:39: daily. [place] [facility] ARIPiprazol Yes 10mg Take 10 mg [...] by mouth ity of 14:39: daily. [place] [facility] ARIPiprazol Yes 10mg Take 10 [...] by mouth ity of 14:39: daily. [place] [facility] ARIPiprazol Yes 10mg Take 10 [...] by mouth ity of 14:39: daily. [place] [facility] ARIPiprazol Yes 10mg Take 10 [...] 21 times Medical daily. Branch metoprolol Yes [id number] 25mg Take 1 Un nneka succinate 8-29 tablet by ity o f XL 25 mg 24 00:00: mouth [place] hr tablet 00 daily. [facility] hydroCHLORO 0 Yes [id number] 25mg Take 1 [facility] thiazide 25 8-29 tablet by ity of mg tablet 00:00: mouth [place] 00 daily. [facility] meloxicam Yes [id number] 15mg Take 1 U nivers 15 mg 8-29 tablet by ity of tablet 00:00: mouth [place] 00 daily. [facility] metoprolol Yes [id number] 25mg Take 1 Un nneka succinate 8-29 tablet by ity o f XL 25 mg 24 00:00: mouth [place] hr tablet 00 daily. [facility] hydroCHLORO Yes [id number] 25mg Take 1 [facility] thiazide 25 8-29 tablet by ity of mg tablet 00:00: mouth [place] 00 daily. [facility] meloxicam Yes [id number] 15mg Take 1 U nivers 15 mg 8-29 tablet by ity of tablet 00:00: mouth [place] 00 daily. [facility] metoprolol Yes [id number] 25mg Take 1 Un nneka succinate 8-29 tablet by ity o f XL 25 mg 24 00:00: mouth [place] hr tablet 00 daily. [facility] hydroCHLORO 0 Yes [id number] 25mg Take 1 [facility] thiazide 25 8-29 tablet by ity of mg tablet 00:00: mouth [place] 00 daily. [facility] meloxicam Yes [id number] 15mg Take 1 U nivers 15 mg 8-29 tablet by ity of tablet 00:00: mouth [place] 00 daily. [facility] metoprolol 0 Yes [id number] 25mg Take 1 Un nneka succinate 8-29 tablet by ity o f XL 25 mg 24 00:00: mouth [place] hr tablet 00 daily. [facility] hydroCHLORO 0 Yes [id number] 25mg Take 1 [facility] thiazide 25 8-29 tablet by ity of mg tablet 00:00: mouth [place] 00 daily. [facility] meloxicam 0 Yes [id number] 15mg Take 1 U nivers 15 mg 8-29 tablet by ity of tablet 00:00: mouth [place] 00 daily. [facility] metoprolol 0 Yes [id number] 25mg Take 1 Un nneka succinate 8-29 tablet by ity o f XL 25 mg 24 00:00: mouth [place] hr tablet 00 daily. [facility] Branch hydroCHLORO Yes [id number] 25mg Take 1 [facility] thiazide 25 8-29 tablet by ity of mg tablet 00:00: mouth [place] 00 daily. [facility] meloxicam Yes [id number] 15mg Take 1 U nivers 15 mg 8-29 tablet by ity of tablet 00:00: mouth [place] 00 daily. [facility] metoprolol Yes [id number] 25mg Take 1 Un nneka succinate 8-29 tablet by ity o f XL 25 mg 24 00:00: mouth [place] hr tablet 00 daily. [facility] hydroCHLORO Yes [id number] 25mg Take 1 [facility] thiazide 25 8-29 tablet by ity of mg tablet 00:00: mouth [place] 00 daily. [facility] meloxicam Yes [id number] 15mg Take 1 U nivers 15 mg 8-29 tablet by ity of tablet 00:00: mouth [place] 00 daily. [facility] metoprolol Yes [id number] 25mg Take 1 Un nneka succinate 8-29 tablet by ity o f XL 25 mg 24 00:00: mouth [place] hr tablet 00 daily. [facility] Branch hydroCHLORO Yes [id number] 25mg Take 1 [facility] thiazide 25 8-29 tablet by ity of mg tablet 00:00: mouth [place] 00 daily. [facility] meloxicam Yes [id number] 15mg Take 1 U nivers 15 mg 8-29 tablet by ity of tablet 00:00: mouth [place] 00 daily. [facility] metoprolol 2020- No [id number] 25mg Take 1 U nivers succinate 8-29 01-30 tablet by ity of XL 25 mg 24 00:00: 00:00 mouth [place] hr tablet 00 :00 daily. [facility] hydroCHLORO 2020- No [id number] 25mg Take 1 [facility] thiazide 25 8-29 01-30 tablet by it y of mg tablet 00:00: 00:00 mouth [place] 00 :00 daily. [facility] meloxicam 2020- No [id number] 15mg Take 1 [facility] 15 mg 8-29 -30 tablet by ity of tablet 00:00: 00:00 mouth [place] 00 :00 daily. [facility] Branch metoprolol 2020- No [id number] 25mg Take 1 U nivers succinate 8-28 09-30 tablet by ity of XL 25 mg 24 00:00: 00:00 [place] hr tablet 00 :00 daily. [facility] hydroCHLORO 2020- No [id number] 25mg Take 1 [facility] thiazide 25 -28 09-30 tablet by it y of mg tablet 00:00: 00:00 mouth [place] 00 :00 daily. [facility] meloxicam 2020- No [id number] 15mg Take 1 [facility] 15 mg 04-28 tablet by ity of tablet 00:00: 00:00 mouth [place] 00 :00 daily. [facility] Dose 2019-0 No Unknown 7-30 00:00: 00 Dose 2019-0 No Unknown 7-30 00:00: 00 Dose 2019-0 No Unknown 7-30 00:00: 00 Dose 2019-0 No Unknown 7-30 00:00: 00 Dose 2019-0 No Unknown 7-30 00:00: 00 Dose 2019-0 No Unknown 7-30 00:00: 00 METOPROLOL 2018- 2019- No [id number] TAKE 1 U nivers SUCCINATE 7-10 -29 TABLET BY ity of XL 25 mg 24 00:00: 00:00 MOUTH [place] hr tablet 00 :00 EVERY DAY [facility] METOPROLOL 2019- No [id number] TAKE 1 U nivers SUCCINATE 7-10 -29 TABLET BY ity of XL 25 mg 24 00:00: 00:00 MOUTH [place] hr tablet 00 :00 EVERY DAY [facility] hydroCHLORO 2019- No [id number] 25mg Take 1 [facility] thiazide 25 -30 -29 tablet by it y of mg tablet 00:00: 00:00 mouth [place] 00 :00 daily. [facility] meloxicam 2019- No [id number] 7.5mg Take 1 [facility] (MOBIC) 7.5 -30 -29 tablet by it y of mg tablet 00:00: 00:00 mouth [place] 00 :00 daily. [facility] hydroCHLORO 2019- No [id number] 25mg Take 1 [facility] thiazide 25 5-30 -29 tablet by it y of mg tablet 00:00: 00:00 mouth [place] 00 :00 daily. [facility] meloxicam 0 2019- No [id number] 7.5mg Take 1 [facility] (MOBIC) 7.5 5-30 [...] ORAL) 20:00: (two) [place] 25 times Medical daily. Branch DULOXETINE Yes 60mg Take 60 mg U nivers HCL 4-23 by mouth 3 ity of (CYMBALTA 20:00: (three) [place] ORAL) 25 times Medical daily. Branch OLANZapine Yes 20mg Take 20 mg U nivers 20 mg 4-23 by mouth ity of tablet 20:00: at [place] 25 bedtime. Medical Branch aripiprazol Yes 5mg Take 5 mg U nivers e (ABILIFY 4-23 by mouth 2 ity of ORAL) 20:00: (two) [place] 25 times Medical daily. Branch VITAMIN B Yes Take by Unive rs COMPLEX 3-28 mouth. ity of ORAL 16:11: [address] VITAMIN B Yes Take by Unive rs COMPLEX 3-28 mouth. ity of ORAL 16:11: [address] VITAMIN B Yes Take by Unive rs COMPLEX 3-28 mouth. ity of ORAL 16:11: [address] VITAMIN B Yes Take by Unive rs COMPLEX 3-28 mouth. ity of ORAL 16:11: [address] VITAMIN B Yes Take by Unive rs COMPLEX 3-28 mouth. ity of ORAL 16:11: [address] VITAMIN B Yes Take by Unive rs COMPLEX 3-28 mouth. ity of ORAL 16:11: [address] amlodipine No 1mg 5 mg tablet 2-19 00:00: 00 amlodipine 2019 No 1mg 5 mg tablet 2-19 00:00: 00 amlodipine No 1mg 5 mg tablet 2-19 00:00: 00 amlodipine 2017-08 No 1mg 10 mg 2-11 tablet 00:00: 00 amlodipine 2017-08 No 1mg 10 mg 2-11 tablet 00:00: [...] 05-19 00:00: 00 Dose 2018-0 No Unknown 9 00:00: 00 Dose 2018-0 No Unknown 919 00:00: 00 Zyprexa 15 2018-0 No 1mg mg tablet 05-19 00:00: 00 Dose 2018-0 No Unknown 05-19 00:00: 00 Dose 2018-0 No Unknown 05-19 00:00: 00 Dose 2018-0 No Unknown 19 00:00: 00 amlodipine 2018-0 No 1mg 10 [...] 8-15 tablet 00:00: 00 cyclobenzap 2018-0 Yes [id number] Bid prn [facility] rine 10 mg 8-02 ity of tablet 00:00: [place] [address] [place] [address] cyclobenzap 2018-0 Yes [id number] Bid prn [facility] rine 10 mg 8-02 ity of tablet 00:00: [place] 00 Medical Branch cyclobenzap 2018-0 Yes [id number] Bid prn [facility] rine 10 mg 8-02 ity of tablet 00:00: [place] 00 Medical Branch cyclobenzap 2018-0 Yes [id number] Bid prn [facility] rine 10 mg 8-02 ity of tablet 00:00: [place] 00 [facility] Branch cyclobenzap 2018-0 Yes [id number] Bid prn [facility] rine 10 mg 8-02 ity of tablet 00:00: [place] 00 Medical Branch cyclobenzap 2018-0 Yes [id number] Bid prn [facility] rine 10 mg 8-02 ity of tablet 00:00: [place] [address] Medical Branch cyclobenzap 2018-0 Yes [id number] Bid prn [facility] rine 10 mg 8-02 ity of tablet 00:00: [place] [address] Medical Branch cyclobenzap 2018-0 Yes [id number] Bid prn [facility] rine 10 mg 8-02 ity of tablet 00:00: [place] [address] Medical Branch cyclobenzap 2018-0 Yes [id number] Bid prn [facility] rine 10 mg 8-02 ity of tablet 00:00: [place] 00 Medical Branch cyclobenzap 2018-0 Yes [id number] Bid prn [facility] rine 10 mg 8-02 ity of tablet 00:00: [place] 00 Medical Branch cyclobenzap 2018-0 2020- No [id number] Bid prn [facility] rine 10 mg 8-02 02-24 ity of tablet 00:00: 00:00 [place] 00 :00 Medical Branch cyclobenzap 2018-0 2020- No [id number] Bid prn [facility] rine 10 mg 8-02 02-24 ity of tablet 00:00: 00:00 [place] 00 :00 Medical Branch cyclobenzap 2018-0 2020- No [id number] Bid prn [facility] rine 10 mg 8-02 [...] 5-19 capsule 00:00: 00 DULoxetine 2015-0 Yes [id number] Emanuel sey HCl 30 MG 3-16 [place] oral 00:00: - Capsule 00 Externa Delayed l Release Sprinkle hydrOXYzine 2015-0 Yes [id number] [place] HCl 25 MG 3-16 [place] oral Tablet 00:00: - 00 Externa l DULoxetine 2015-0 Yes [id number] Emanuel sey HCl 30 MG 3-16 [place] oral 00:00: - Capsule 00 Externa Delayed l Release Sprinkle hydrOXYzine 2015-0 Yes [id number] [place] HCl 25 MG 3-16 [place] oral Tablet 00:00: - 00 Externa l DULoxetine 2015-0 Yes Jelena HCl 30 MG 3-16 [place] oral 00:00: - Capsule 00 Externa Delayed l Release Sprinkle hydrOXYzine 2016-0 Yes Jelena HCl 25 MG 3-16 [place] oral Tablet 00:00: - 00 Externa l DULoxetine 2016-0 Yes [id number] Emanuel sey HCl 30 MG 3-16 [place] oral 00:00: - Capsule 00 Externa Delayed l Release Sprinkle hydrOXYzine 2016-0 Yes [id number] Ke [place] HCl 25 MG 3-16 [place] oral Tablet 00:00: - 00 Externa l DULoxetine 2016-0 Yes [id number] Emanuel sey HCl 30 MG 3-16 [place] oral 00:00: - Capsule 00 Externa Delayed l Release Sprinkle hydrOXYzine 2016-0 Yes [id number] Ke lsey HCl 25 MG 3-16 Seybold oral Tablet 00:00: - 00 Externa l DULoxetine 2016-0 Yes [id number] Emanuel sey HCl 30 MG 3-16 Seybold oral 00:00: - Capsule 00 Externa Delayed l Release Sprinkle hydrOXYzine 2016-0 Yes [id number] Ke lsey HCl 25 MG 3-16 Seybold oral Tablet 00:00: - 00 Externa l DULoxetine 2016-0 2023- No [id number] Ke lsey HCl 30 MG 3-16 04-24 Seybold oral 00:00: 00:00 - Capsule 00 :00 Externa Delayed l Release Sprinkle hydrOXYzine 2016-0 2023- No [id number] K elsey HCl 25 MG 3-16 04-24 [...] Protein, Pf Covid-19 Vaccine 2021-09-07 Completed Jelena Tillman alyssajuan antonio Moderna (Spikevax), 00:00:00 - Ext ernal Mrna-lnp, Bradley Protein, Pf Covid-19 Vaccine 2021-09-07 Completed Jelena newman Moderna (Spikevax), 00:00:00 - Ext ernal Mrna-lnp, Bradley Protein, Pf Covid-19 Vaccine 2021-09-07 Completed Jelena newman Moderna (Spikevax), 00:00:00 - Ext ernal Mrna-lnp, Bradley Protein, Pf Covid-19 Vaccine 2021-09-07 Completed Jelena Tillman alyssajuan antonio Moderna (Spikevax), 00:00:00 - Ext ernal Mrna-lnp, Bradley Protein, Pf Covid-19 Vaccine 2021-09-07 Completed Jelena S alyssajuan antonio Moderna (Spikevax), 00:00:00 - Ext ernal Mrna-lnp, Bradley Protein, Pf Covid-19 Vaccine 2021-09-07 Completed Jelena newman Moderna (Spikevax), 00:00:00 - Ext ernal Mrna-lnp, Bradley Protein, Pf Covid-19 Vaccine 2021-09-07 Completed Jelena Tillman alyssajuan antonio Moderna (Spikevax), 00:00:00 - Ext ernal Mrna-lnp, Bradley Protein, Pf Covid-19 Vaccine 2021-09-07 Completed Jelena alyssajuan antonio Moderna (Spikevax), 00:00:00 - Ext ernal Mrna-lnp, [...] - External DTaP Unspecified 2009-04-17 Completed Jelena Tillman eybold 00:00:00 - External Hepatitis A 2009-04-17 Completed Jelena Eatonol d 00:00:00 - External HPV 4 (Human 2009-04-17 Completed Jelena Ashley ld Papillomavirus) 00:00:00 - Externa l Pneumococcal Vaccine, 2009-04-17 Completed Emanuel woodard Seybold Conjugate 7 00:00:00 - External DTaP Unspecified 2009-04-17 Completed Jelena Tillman eybold 00:00:00 - External Hepatitis A 2009-04-17 [...] - External DTaP Unspecified 2009-04-17 Completed Jelena Tillman eybold 00:00:00 - External DTaP Unspecified 2009-04-17 [...] - External DTaP Unspecified 2009-04-17 Completed Jelena Tillman eybold 00:00:00 - External Hepatitis A 2009-04-17 Completed Jelena Eatonol d 00:00:00 - External HPV 4 (Human 2009-04-17 Completed Jelena Eatono ld Papillomavirus) 00:00:00 - Externa l Pneumococcal Vaccine, 2009-04-17 Completed Emanuel woodard Seybold Conjugate 7 00:00:00 - External HPV 4 (Human 2009-04-17 Completed Jelena Eatono ld Papillomavirus) 00:00:00 - Externa l DTaP Unspecified 2009-04-17 Completed Jelena Tillman eybold 00:00:00 - External Hepatitis A 2009-04-17 Completed Jelena Eatonol d 00:00:00 - External HPV 4 (Human 2009-04-17 Completed Jelenalit Eatono ld Papillomavirus) 00:00:00 - Externa l Pneumococcal Vaccine, 2009-04-17 Completed Emanuel y Seybold Conjugate 7 00:00:00 - External Pneumococcal Vaccine, 2009-04-17 Completed Emanuel lit Seybold Conjugate 7 00:00:00 - External DTaP [...] - Externa l Meningococcal 2008-02-18 Completed Jelena Guevarayb old Mcv4,unspecified 00:00:00 - Pouncer Machine 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 Hepatitis A 2008-02-18 Completed Jelena Seybol d 00:00:00 - External HPV 4 (Human 2008-02-18 Completed Jelena Seybo ld Papillomavirus) 00:00:00 - Externa l Meningococcal 2008-02-18 Completed Jelena Seyb old Mcv4,unspecified 00:00:00 - Pouncer Machine 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 Hepatitis A 2008-02-18 Completed Jelena Seybol d 00:00:00 - External HPV 4 (Human 2008-02-18 Completed Jelena Seybo ld Papillomavirus) 00:00:00 - Externa l Meningococcal 2008-02-18 Completed Jelena Seyb old Mcv4,unspecified 00:00:00 - Pouncer Machine 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 Hepatitis A 2008-02-18 Completed Jelena Seybol d 00:00:00 - External Hepatitis A 2008-02-18 Completed Jelena Seybol d 00:00:00 - External HPV 4 (Human 2008-02-18 Completed Jelena Seybo ld Papillomavirus) 00:00:00 - Externa l Meningococcal 2008-02-18 Completed Jelena Seyb old Mcv4,unspecified 00:00:00 - Pouncer Machine 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 Hepatitis A 2008-02-18 Completed Jelena Seybol d 00:00:00 - External HPV 4 (Human 2008-02-18 Completed Ejlena Seybo ld Papillomavirus) 00:00:00 - Externa l Meningococcal 2008-02-18 Completed Jelena Seyb old Mcv4,unspecified 00:00:00 - Pouncer Machine 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 HPV 4 (Human 2008-02-18 Completed Jelena Seybo ld Papillomavirus) 00:00:00 - Externa l Meningococcal 2008-02-18 Completed Jelena Seyb old Mcv4,unspecified 00:00:00 - Pouncer Machine 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 Hepatitis A 2008-02-18 Completed Jelena Seybol d 00:00:00 - External HPV 4 (Human 2008-02-18 Completed Jelena Seybo ld Papillomavirus) 00:00:00 - Externa l Meningococcal 2008-02-18 Completed Jelena Seyb old Mcv4,unspecified 00:00:00 - Pouncer Machine 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 Hepatitis A 2008-02-18 Completed Jelena Seybol d 00:00:00 - External HPV 4 (Human 2008-02-18 Completed Jelena Seybo ld Papillomavirus) 00:00:00 - Externa l Meningococcal 2008-02-18 Completed Jelena Seyb old Mcv4,unspecified 00:00:00 - Pouncer Machine 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 Hepatitis A 2008-02-18 Completed Jelena Seybol d 00:00:00 - External HPV 4 (Human 2008-02-18 Completed Jelena Seybo ld Papillomavirus) 00:00:00 - Externa l Meningococcal 2008-02-18 Completed Jelena Seyb old Mcv4,unspecified 00:00:00 - Pouncer Machine 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 Hepatitis A 2008-02-18 Completed Jelena Seybol d 00:00:00 - External HPV 4 (Human 2008-02-18 Completed Jelena Seybo ld Papillomavirus) 00:00:00 - Externa l Meningococcal 2008-02-18 Completed Jelena Seyb old Mcv4,unspecified 00:00:00 - Pouncer Machine 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 Hepatitis A 2008-02-18 Completed Jelena Seybol d 00:00:00 - External HPV 4 (Human 2008-02-18 Completed Jelena Seybo ld Papillomavirus) 00:00:00 - Externa l Meningococcal 2008-02-18 Completed Jelena Seyb old Mcv4,unspecified 00:00:00 - Pouncer Machine 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 Hepatitis A 2008-02-18 Completed Jelena Seybol d 00:00:00 - External HPV 4 (Human 2008-02-18 Completed Jelena Seybo ld Papillomavirus) 00:00:00 - Externa l Meningococcal 2008-02-18 Completed Jelena Seyb old Mcv4,unspecified 00:00:00 - Pouncer Machine 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 Hepatitis A 2008-02-18 Completed Jelena Seybol d 00:00:00 - External HPV 4 (Human 2008-02-18 Completed Jelena Seybo ld Papillomavirus) 00:00:00 - Externa l Meningococcal 2008-02-18 Completed Jelena Seyb old Mcv4,unspecified 00:00:00 - Pouncer Machine 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 Td (adult), 2 Lf 2006-05-25 [...] adsorbed Td (adult), 2 2006-05-25 Completed Jelena Tillman eybold tetanus toxoid, 00:00:00 - Externa l preservative free, adsorbed Td (adult), 2 2006-05-25 Completed Jelena Tillman eyradhald tetanus toxoid, 00:00:00 - Externa l preservative free, adsorbed Td (adult), 2 2006-05-25 Completed Jelena Tillman eybold tetanus toxoid, 00:00:00 - Externa l preservative free, adsorbed Td (adult), 2 2006-05-25 Completed Jelena Tillman eybold tetanus toxoid, 00:00:00 - Externa l preservative free, adsorbed Td (adult), 2 2006-05-25 Completed Jelena Tillman eybold tetanus toxoid, 00:00:00 - Externa l preservative free, adsorbed Td (adult), 2 2006-05-25 Completed Jelena Tillman eybold tetanus toxoid, 00:00:00 - Externa l preservative free, adsorbed Td (adult), 2 2006-05-25 Completed Jelena Tillman eybold tetanus toxoid, 00:00:00 - Externa l preservative free, adsorbed Td (adult), 2 2006-05-25 Completed Jelena Tillman eybold tetanus toxoid, 00:00:00 - Externa l preservative free, adsorbed Td (adult), 2 2006-05-25 Completed Jelena delgadold tetanus toxoid, 00:00:00 - Externa l preservative [...] - External HIB- Haemophilus 1997-05-31 Completed Jelena Tillman eybold Influenzae Type B 00:00:00 - Exter nal HIB- Haemophilus 1997-05-31 Completed Jelena Tillman eybold Influenzae Type B 00:00:00 - Exter nal HIB- Haemophilus 1997-05-31 Completed Jelena Tillman eybold Influenzae Type B 00:00:00 - Exter nal HIB- Haemophilus 1997-05-31 Completed Jelena Tillman eybold Influenzae Type B 00:00:00 - Exter nal HIB- Haemophilus 1997-05-31 Completed Jelena Tillman eybold Influenzae Type B 00:00:00 - Exter nal HIB- Haemophilus 1997-05-31 Completed Jelena Tillman eybold Influenzae Type B 00:00:00 - Exter nal HIB- Haemophilus 1997-05-31 Completed Jelena Tillman eybold Influenzae Type B 00:00:00 - Exter nal HIB- Haemophilus 1997-05-31 Completed Jelena Tillman eybold Influenzae Type B 00:00:00 - Exter nal HIB- Haemophilus 1997-05-31 Completed Jelena Tillman eybold Influenzae Type B 00:00:00 - Exter nal HIB- Haemophilus 1997-05-31 Completed Jelena Tillman eybold Influenzae Type B 00:00:00 - Exter nal HIB- Haemophilus 1997-05-31 Completed Jelena Tillman eybold Influenzae Type B 00:00:00 - Exter nal HIB- Haemophilus 1997-05-31 Completed Jelena Tillman eybold Influenzae Type B 00:00:00 - Exter nal HIB- Haemophilus 1997-05-31 Completed Jelena Tillman eybold Influenzae Type B 00:00:00 - Exter nal DTP- 1997-04-05 Completed Jelena Seybold Diphtheria,Tetanus,Pe 00:00:00 - E xternal rtussis OPV- [...] xternal rtussis OPV- Oral Polio 1997-04-05 Completed Jelean Guevara ybold Vaccine 00:00:00 - External DTP- [...] xternal rtussis HIB- Haemophilus 1996-08-05 Completed Jelena Tillman eybold Influenzae Type B 00:00:00 - Exter nal DTP- 1996-08-05 Completed Jelena Ibrahim Diphtheria,Tetanus,Pe 00:00:00 - E xternal rtussis HIB- Haemophilus 1996-08-05 Completed Jelena Tillman eybold Influenzae Type B 00:00:00 - Exter nal DTP- 1996-08-05 Completed Jelena Ibrahim Diphtheria,Tetanus,Pe 00:00:00 - E xternal rtussis HIB- Haemophilus 1996-08-05 Completed Jelena Tillman eybold Influenzae Type B 00:00:00 - Exter nal DTP- 1996-08-05 Completed Jelena Ibrahim Diphtheria,Tetanus,Pe 00:00:00 - E xternal rtussis DTP- 1996-08-05 Completed Jelena Ibrahim Diphtheria,Tetanus,Pe 00:00:00 - E xternal rtussis HIB- Haemophilus 1996-08-05 Completed Jelena Tillman eybold Influenzae Type B 00:00:00 - Exter nal DTP- 1996-08-05 Completed Jelena Ibrahim Diphtheria,Tetanus,Pe 00:00:00 - E xternal rtussis HIB- Haemophilus 1996-08-05 Completed Jelena Tillman eybold Influenzae Type B 00:00:00 - Exter nal HIB- Haemophilus 1996-08-05 Completed Jelena Tillman eybold Influenzae Type B 00:00:00 - Exter nal DTP- 1996-08-05 Completed Jelena Ibrahim Diphtheria,Tetanus,Pe 00:00:00 - E xternal rtussis HIB- Haemophilus 1996-08-05 Completed Jelena Tlilman eybold Influenzae Type B 00:00:00 - Exter nal DTP- 1996-08-05 Completed Jelena Ibrahim Diphtheria,Tetanus,Pe 00:00:00 - E xternal rtussis HIB- Haemophilus 1996-08-05 Completed Jelena Tillman eybold Influenzae Type B 00:00:00 - Exter nal DTP- 1996-08-05 Completed Jelena Ibrahim Diphtheria,Tetanus,Pe 00:00:00 - E xternal rtussis HIB- Haemophilus 1996-08-05 Completed Jelena Tillman eybold Influenzae Type B 00:00:00 - Exter nal DTP1996-08-05 Completed Jelena Ibrahim Diphtheria,Tetanus,Pe 00:00:00 - E xternal rtussis HIB- Haemophilus 1996-08-05 Completed Jelena Tillman eybold Influenzae Type B 00:00:00 - Exter nal DTP- 1996-08-05 Completed Jelena Ibrahim Diphtheria,Tetanus,Pe 00:00:00 - E xternal rtussis HIB- Haemophilus 1996-08-05 Completed Jelena Tillman eybold Influenzae Type B 00:00:00 - Exter nal DTP- 1996-08-05 Completed Jelena Ibrahim Diphtheria,Tetanus,Pe 00:00:00 - E xternal rtussis HIB- Haemophilus 1996-08-05 Completed Jelena Tillman eybold Influenzae Type B 00:00:00 - Exter nal DTP- 1996-08-05 Completed Jelena Ibrahim Diphtheria,Tetanus,Pe 00:00:00 - E xternal rtussis HIB- Haemophilus 1996-08-05 Completed Jelena Tillman eybold Influenzae Type B 00:00:00 - Exter [...] - External HIB- Haemophilus 1993 Completed Jelena Tillman eybold Influenzae Type B 00:00:00 - Exter nal HIB- Haemophilus 1993 Completed Jelena Tillman eybold Influenzae Type B 00:00:00 - Exter [...] Exter nal HIB- Haemophilus 1993 Completed Jelena Tillman eybold Influenzae Type B 00:00:00 - Exter [...] Time Observation Value Comments Source Systolic blood 2023-04-28 13:43:00 140 mm[Hg] Jelena Seybold - pressure External Diastolic blood 2023-04-28 13:43:00 100 mm[Hg] Beth y Seybold - pressure External Heart rate 2023-04-28 13:43:00 102 /min Jelena shahbold - External Body weight 2023-04-28 13:43:00 135.898 kg Jelena Tillman eybold - External BMI 2023-04-28 13:43:00 53.07 kg/m2 Jelena S eybold - External Systolic blood 2023-04-24 13:49:00 140 mm[Hg] Jelena Seybold - pressure External Diastolic blood 2023-04-24 13:49:00 103 mm[Hg] Emanuel y Seybold - pressure External Heart rate 2023-04-24 13:49:00 79 /min Jelena Tillman eybold - External Body temperature 2023-04-24 13:49:00 36.61 Mera Ashlie ey Seybold - External Respiratory rate 2023-04-24 13:49:00 20 /min Ashlie ey Seybold - External Body height 2023-04-24 13:49:00 160 cm Jelena Tillman eybold - External Body weight 2023-04-24 13:49:00 131.09 kg Jelena Tillman eybold - External BMI 2023-04-24 13:49:00 51.19 kg/m2 Jelena shahbold - External Oxygen saturation in 2023-04-24 13:49:00 96 /min Jelena Ibrahim - Arterial blood by External Pulse oximetry HEIGHT 2023-04-16 11:02:00 160 cm WEIGHT 2023-04-16 11:02:00 123.378 kg HEIGHT 2023-04-16 11:02:00 160 cm WEIGHT 2023-04-16 11:02:00 123.378 kg Systolic blood 2023-02-18 16:01:00 141 mm[Hg] Jelena Seybold - pressure External Diastolic blood 2023-02-18 16:01:00 91 mm[Hg] Emanuelse y Seybold - pressure External Heart rate 2023-02-18 16:01:00 77 /min Jelena S eybold - External Body temperature 2023-02-18 16:01:00 35.39 Mera Ashlie ey Seybold - External Respiratory rate 2023-02-18 16:01:00 14 /min Ashlie ey Seybold - External Body height 2023-02-18 16:01:00 160 cm Jelena Tillman eybold - External Body weight 2023-02-18 16:01:00 130.636 kg Jelena Tillman eybold - External BMI 2023-02-18 16:01:00 51.02 kg/m2 Jelena S eybold - External Systolic blood 2023-01-28 15:56:00 144 mm[Hg] Jelena Seybold - pressure External Diastolic blood 2023-01-28 15:56:00 92 mm[Hg] Emanuelse y Seybold - pressure External Heart rate 2023-01-28 15:56:00 80 /min Jelena Tillman eybold - External Respiratory rate 2023-01-28 15:56:00 [...] Body height 2022-12-29 14:50:00 160 cm Jelena Tillman eybold - External Body weight 2022-12-29 14:50:00 130.182 kg Jelena Tillman eybold - External BMI 2022-12-29 14:50:00 50.84 kg/m2 Jelena S eybold - External Systolic blood 2022-12-22 14:00:00 132 mm[Hg] Jelena Seybold - pressure External Diastolic blood 2022-12-22 14:00:00 96 mm[Hg] Emanuelse y Seybold - pressure External Heart rate 2022-12-22 14:00:00 96 /min Jelena S eybold - External Body temperature 2022-12-22 14:00:00 36.39 Mera Ashlie ey Seybold - External Respiratory rate 2022-12-22 14:00:00 18 /min Ashlie ey Seybold - External Body height 2022-12-22 14:00:00 160 cm Jelena Tillman eybold - External Body weight 2022-12-22 14:00:00 127.007 kg Jelena Tillman eybold - External BMI 2022-12-22 14:00:00 49.60 kg/m2 Jelena Tillman eybold - External Oxygen saturation in 2022-12-22 14:00:00 97 /min Jelena Guevaratiffanymarcel - Arterial blood by External Pulse oximetry Body height 2022-12-08 15:56:00 160 cm Jelena Tillman eybold - External Body weight 2022-12-08 15:56:00 111.131 kg Jelena Tillman eybold - External BMI 2022-12-08 15:56:00 43.40 kg/m2 Jelena Tillman eybold - External Systolic blood 2022-10-28 15:06:00 [...] Body height 2022-10-10 14:33:00 160 cm Jelena Tillman eybold - External Body weight 2022-10-10 14:33:00 128.368 kg Jelena Tillman eybold - External BMI 2022-10-10 14:33:00 50.13 [...] Body height 2022-09-24 16:23:00 160 cm Jelena Tillman eybold - External Body weight 2022-09-24 16:23:00 128.368 kg Jelena S eybold - External BMI 2022-09-24 16:23:00 50.13 kg/m2 Jelena S eybold - External Systolic blood 2022-09-09 14:45:00 142 mm[Hg] Jelena Seybold - pressure External Diastolic blood 2022-09-09 14:45:00 86 mm[Hg] Kelse y Seybold - pressure External Heart rate 2022-09-09 14:45:00 84 /min Jelena shahboconstance - External Body temperature 2022-09-09 14:45:00 36.78 Mera Ashlie Ibrahim - External Respiratory rate 2022-09-09 14:45:00 14 /min Ashlie Eatonold - External Body height 2022-09-09 14:45:00 160 [...] [facility] Systolic blood 2020-09-07 15:09:00 126 [...] 2020-08-02 16:44:00 160 cm [facility] Body weight 2020-08-02 16:44:00 114.352 kg [facility] BMI 2020-08-02 16:44:00 44.66 kg/m2 [...] 2020-05-17 16:06:00 160 cm [facility] Body weight 2020-05-17 16:06:00 105.688 kg [facility] BMI 2020-05-17 16:06:00 41.27 kg/m2 [facility] Systolic blood 2020-03-08 15:04:00 108 mm[Hg] [facility] Diastolic blood 2020-03-08 15:04:00 69 mm[Hg] [facility] Heart rate 2020-03-08 15:04:00 74 /min [facility] Body temperature 2020-03-08 15:04:00 36.61 Mera [facility] Respiratory rate 2020-03-08 15:04:00 20 /min [facility] Body height 2020-03-08 15:04:00 160 cm [facility] Body weight 2020-03-08 15:04:00 112.583 kg [facility] BMI 2020-03-08 15:04:00 43.97 kg/m2 [facility] Systolic blood 2019-10-25 14:56:00 128 mm[Hg] [facility] Diastolic blood 2019-10-25 14:56:00 92 mm[Hg] [facility] Heart rate 2019-10-25 14:56:00 72 /min [facility] Body temperature 2019-10-25 14:56:00 36.67 Mera [facility] Body height 2019-10-25 14:56:00 160 cm [facility] Body weight 2019-10-25 14:56:00 110.904 kg [facility] BMI 2019-10-25 14:56:00 43.31 kg/m2 [facility] Oxygen saturation in 2019-10-25 14:56:00 99 /min [facility] blood by [facility] Pulse oximetry Branch Systolic blood 2019-10-24 17:13:00 120 mm[Hg] [facility] Diastolic blood 2019-10-24 17:13:00 81 mm[Hg] [facility] Heart rate 2019-10-24 17:13:00 75 /min [facility] Respiratory rate 2019-10-24 17:13:00 19 /min [facility] Body height 2019-10-24 17:13:00 160 cm [facility] Body weight 2019-10-24 17:13:00 110.133 kg [facility] BMI 2019-10-24 17:13:00 43.01 kg/m2 [facility] Oxygen saturation in 2019-10-24 17:13:00 99 /min [facility] Arterial blood by [employer] [facility] Pulse oximetry Branch Systolic blood 2019-09-29 16:38:00 93 mm[Hg] [facility] Diastolic blood 2019-09-29 16:38:00 64 mm[Hg] [facility] Heart rate 2019-09-29 16:38:00 77 /min [facility] Body temperature 2019-09-29 16:38:00 36.5 Mera [facility] 2019-09-29 16:38:00 20 /min [facility] [place] Body height 2019-09-29 16:38:00 160 cm [facility] Body weight 2019-09-29 16:38:00 109.77 kg [facility] BMI 2019-09-29 16:38:00 42.87 kg/m2 [facility] Systolic blood 2019-04-28 14:39:00 105 mm[Hg] [facility] Diastolic blood 2019-04-28 14:39:00 62 mm[Hg] [facility] Heart rate 2019-04-28 14:39:00 87 /min [facility] [place] Body temperature 2019-04-28 14:39:00 36.94 Mera [facility] Respiratory rate 2019-04-28 14:39:00 18 /min [facility] [place] Body height 2019-04-28 14:39:00 160 cm Universi [...] Source Performed REFERRAL- 2020-09-27 06:01:00 Doctor Lucina, [facility] REQUEST/RESPONSE [facility] MR KNEE LEFT WO CONTRAST 2020-08-20 18:12:04 Alexandre Delgado [facility] [place] NOTICE OF PRIVACY 2020-08-02 06:01:00 Doctor Verdugo, [facility] PRACTICES [facility] AGREEMENTS AUTHORIZATIONS 2020-08-02 06:01:00 Doctor Verdugo, [facility] AND IRREVOCABLE [facility] ASSIGNMENTS (FORM 2001) VACCINATIONS - CONSENTS, 2020-05-17 05:01:00 Doctor Verdugo [facility] ELIGIBILITY, HISTORY [facility] XR KNEE 3 VW LEFT 2020-03-16 13:13:36 Alexandre Delgado [facility] SCANNED LAB RESULTS 2020-03-08 05:01:00 [facility] ASSIGNMENT OF BENEFITS 2020-02-10 13:57:41 [facility] - PRESCRIPTION / 2019-09-08 06:01:00 Doctor Verdugo [facility] ORDER [facility] AGREEMENTS AUTHORIZATIONS 2019-04-28 05:01:00 Doctor Unassigned, [facility] AND IRREVOCABLE [facility] ASSIGNMENTS (FORM 2001) [id number] Ecg Routine Ecg 2018-06-14 00:00:00 W/least 12 Lds W/i r Plan of Care Planned Activity Planned Date Details Comments Source Goal Plan of Care Note [code = 65948-9] Goal Plan of Care Note [code = 53337-2] Goal Plan of Care Note [code = 13627-2] Goal Plan of Care Note [code = 24194-6] Goal Plan of Care Note [code = 86948-8] Goal Plan of Care Note [code = 24409-1] Goal Plan of Care Note [code = 79990-6] Goal Plan of Care Note [code = 86898-4] Goal Plan of Care Note [code = 26233-4] Goal Plan of Care Note [code = 99114-9] Goal Plan of Care Note [code = 69638-2] Goal Plan of Care Note [code = 05060-9] Goal Plan of Care Note [code = 63402-5] Goal Plan of Care Note [code = 68186-3] Goal Plan of Care Note [code = 31550-3] Goal Plan of Care Note [code = 63706-9] Goal Plan of Care Note [code = 08471-2] Goal Plan of Care Note [code = 34310-8] Goal Plan of Care Note [code = 88018-6] Goal Plan of Care Note [code = 60967-9] Goal Plan of Care Note [code = 02113-5] Goal Plan of Care Note [code = 25748-5] Goal Plan of Care Note [code = 44042-7] Goal Plan of Care Note [code = 33523-3] Goal Plan of Care Note [code = 55970-1] Goal Plan of Care Note [code = 27221-5] Goal Plan of Care Note [code = 34894-2] Goal Plan of Care Note [code = 34712-3] Goal Plan of Care Note [code = 26801-1] Goal Plan of Care Note [code = 80853-2] Goal Plan of Care Note [code = 28663-4] Goal Plan of Care Note [code = 30282-9] Goal Plan of Care Note [code = 68749-9] Goal Plan of Care Note [code = 47464-3] Goal Plan of Care Note [code = 68116-1] Goal Plan of Care Note [code = 71409-4] Goal Plan of Care Note [code = 35454-6] Goal Plan of Care Note [code = 19492-3] Goal Plan of Care Note [code = 79407-7] Goal Plan of Care Note [code = 74429-7] Goal Plan of Care Note [code = 40215-0] Goal Plan of Care Note [code = 43732-2] Goal Plan of Care Note [code = 03815-2] Goal Plan of Care Note [code = 72151-2] Goal Plan of Care Note [code = 93267-4] Goal Plan of Care Note [code = 81353-1] Goal Plan of Care Note [code = 74000-0] Goal Plan of Care Note [code = 20547-0] Goal Plan of Care Note [code = 96016-7] Goal Plan of Care Note [code = 74600-6] Goal Plan of Care Note [code = 51634-8] Goal Plan of Care Note [code = 77542-1] Goal Plan of Care Note [code = 18303-2] Goal Plan of Care Note [code = 11017-9] Goal Plan of Care Note [code = 01447-6] Goal Plan of Care Note [code = 22082-1] Goal Plan of Care Note [code = 56259-6] Goal Plan of Care Note [code = 82510-2] Goal Plan of Care Note [code = 42180-7] Goal Plan of Care Note [code = 09927-2] Goal Plan of Care Note [code = 13263-0] Goal Plan of Care Note [code = 57193-3] Goal Plan of Care Note [code = 69014-7] Goal Plan of Care Note [code = 31253-8] Goal Plan of Care Note [code = 52902-6] Goal Plan of Care Note [code = 22837-2] Goal Plan of Care Note [code = 34180-7] Goal Plan of Care Note [code = 23273-2] Goal Plan of Care Note [code = 26809-7] Goal Plan of Care Note [code = 24284-9] Goal Plan of Care Note [code = 93456-9] Goal Plan of Care Note [code = 74932-7] Goal Plan of Care Note [code = 49512-1] Goal Plan of Care Note [code = 32882-0] Goal Plan of Care Note [code = 81270-9] Goal Plan of Care Note [code = 74871-0] Goal Plan of Care Note [code = 13074-2] Goal Plan of Care Note [code = 20324-1] Goal Plan of Care Note [code = 85086-3] Goal Plan of Care Note [code = 44517-4] Goal Plan of Care Note [code = 05262-3] Goal Plan of Care Note [code = 99830-9] Goal Plan of Care Note [code = 71663-0] Goal Plan of Care Note [code = 37908-5] Goal Plan of Care Note [code = 61845-4] Goal Plan of Care Note [code = 37914-7] Goal Plan of Care Note [code = 00005-9] Goal Plan of Care Note [code = 05704-9] Goal Plan of Care Note [code = 38721-5] Goal Plan of Care Note [code = 29744-8] Goal Plan of Care Note [code = 70462-4] Goal Plan of Care Note [code = 50970-2] Goal Plan of Care Note [code = 70850-5] Goal Plan of Care Note [code = 59168-1] Goal Plan of Care Note [code = 89644-7] Goal Plan of Care Note [code = 29031-0] Goal Plan of Care Note [code = 74473-5] Goal Plan of Care Note [code = 00423-6] Goal Plan of Care Note [code = 02220-7] Goal Plan of Care Note [code = 59140-0] Goal Plan of Care Note [code = 25907-8] Goal Plan of Care Note [code = 44692-1] Goal Plan of Care Note [code = 74484-7] Goal Plan of Care Note [code = 32389-2] Goal Plan of Care Note [code = 08169-6] Goal Plan of Care Note [code = 72621-2] Goal Plan of Care Note [code = 72110-4] Goal Plan of Care Note [code = 37662-3] Goal Plan of Care Note [code = 26211-6] Encounters Start End Encounter Admission Attending Care Care Encounter Source Date/Time Date/Time Type Type Clinicians Facility Department ID 2023-11-17 2023-11-17 Outpatient JELENA VICK [id number] Jelena 09:00:00 09:00:00 DARLIN ybo ld 2023-07-10 2023-07-10 Outpatient CATBOLEEANNEJELENA [id number] Jelena 10:00:00 10:00:00 LEI Seybo ld 2023-05-11 2023-05-11 Outpatient JELENA GARY [id number] Jelena 09:00:00 09:00:00 ROBYN Seybol d 2023-04-28 2023-04-28 Outpatient JELENA VICK [id number] Jelena 09:00:00 09:00:00 DARLIN ybo ld 2023-04-26 2023-04-26 Outpatient JELENA GARY [id number] Jelena 00:00:00 00:00:00 ROBYN Seybol d 2023-04-24 2023-04-24 Outpatient GAURAV PURVIS [id number] Jelena 09:00:00 09:00:00 Seybol d 2023-04-23 2023-04-23 Outpatient VERÓNICAJELENALORETTAJessica KNIGHT [id number] Jelena 00:00:00 00:00:00 MD ANKITA Seybol d 2023-04-20 2023-04-20 Outpatient GAURAV PURVIS [id number] Jelena 10:30:00 10:30:00 Seybol d 2023-04-20 2023-04-20 Outpatient JELENA BRIONES [id number] Jelena 00:00:00 00:00:00 AHMED Seybol d 2023-04-17 2023-04-17 Outpatient JELENA NEVAREZ [id number] Jelena 00:00:00 00:00:00 LASUNDRA Seybo ld 2023-04-17 2023-04-17 Outpatient JELENA GARY [id number] Jelena 00:00:00 00:00:00 ROYBN Seybol d 2023-04-16 2023-04-[address] [id number] [facility] 10:54:00 15:04:00 RACHEL 2023-04-16 2023-04-16 Emergency ER PENLADAN, SLSL SLSL [id number] SLSL 12:07:04 12:07:04 RACHEL 2023-04-16 2023-04-16 Outpatient JELENA STOKES [id number] Jelena 10:30:00 10:30:00 SPENSER Seybol d 2023-04-16 2023-04-16 Outpatient JELENA WANG [id number] Jelena 00:00:00 00:00:00 KELSEY Seybol d 2023-04-13 2023-04-13 Outpatient GAURAV PURVIS [id number] Jelena 10:30:00 10:30:00 Seybol d 2023-03-25 2023-03-25 Outpatient GAURAV PURVIS [id number] Jelena 00:00:00 00:00:00 Seybol d 2023-03-23 2023-03-23 Outpatient GAURAV PURVIS [id number] Jelena 10:30:00 10:30:00 Seybol d 2023-03-19 2023-03-19 Outpatient JELENA GARY [id number] Jelena 00:00:00 00:00:00 ROBYN Seybol d 2023-03-18 2023-03-18 Outpatient JELENA MALHOTRA [id number] Jelena 00:00:00 00:00:00 BYRON Seybol d 2023-03-17 2023-03-17 Outpatient RUSSELL KNIGHT [id number] Jelena 00:00:00 00:00:00 MD ANKITA Seybol d 2023-03-16 2023-03-16 Outpatient JELENA AGRY [id number] Jelena 00:00:00 00:00:00 ROBYN Seybol d 2023-03-11 2023-03-11 Outpatient JELENA BRIONES [id number] Jelena 11:15:00 11:15:00 AHMED Seybol d 2023-03-09 2023-03-09 Outpatient JELENA GARY [id number] Jelena 00:00:00 00:00:00 ROBYN Seybol d 2023-03-05 2023-03-05 Outpatient ANSELMO JELENA KNIGHT [id number] Jelena 00:00:00 00:00:00 AHMED Seybol d 2023-03-02 2023-03-02 Outpatient FARIDAJessica JELENA KNIGHT [id number] Jelena 00:00:00 00:00:00 ROBYN Seybol d 2023-02-20 2023-02-20 Outpatient HUNDL JELENA KNIGHT [id number] Jelena 00:00:00 00:00:00 ROBYN Seybol d 2023-02-20 2023-02-20 Outpatient COOKIE JELENA KNIGHT [id number] Jelena 00:00:00 00:00:00 ROBYN Seybol d 2023-02-19 2023-02-19 Outpatient PREFREDERICKLayneJELENA [id number] Jelena 00:00:00 00:00:00 BYRON Seybol d 2023-02-18 2023-02-18 Outpatient JELENA GARY [id number] Jelena 11:00:00 11:00:00 ROBYN Seybol d 2023-02-16 2023-02-16 Outpatient COOKIE JELENA KNIGHT [id number] Jelena 00:00:00 00:00:00 ROBYN Seybol d 2023-02-06 2023-02-06 Outpatient JELENA NEVAREZ [id number] Jelena 00:00:00 00:00:00 LASUNDRA Seybo ld 2023-02-06 2023-02-06 Outpatient JELENA JOHN [id number] Jelena 00:00:00 00:00:00 SHANEIKA Seybo ld 2023-02-05 2023-02-05 Outpatient LAB90 JELENA KNIGHT [id number] eJlena 09:10:00 09:10:00 Seybol d 2023-02-05 2023-02-05 Outpatient JELENA MALHOTRA [id number] Jelena 00:00:00 00:00:00 BYRON Seybol d 2023-02-05 2023-02-05 Outpatient JELENA TREVIÑO [id number] Jelena 00:00:00 00:00:00 OLENA Seybol d 2023-02-02 2023-02-02 Outpatient KIKEJELENA [id number] Jelena 09:30:00 09:30:00 SPENSER Seybol d 2023-02-02 2023-02-02 Outpatient JELENA GARY [id number] Jelena 00:00:00 00:00:00 ROBYN Seybol d 2023-02-02 2023-02-02 Outpatient HUNDLJELENA [id number] Jelena 00:00:00 00:00:00 ROBYN Seybol d 2023-01-28 2023-01-28 Outpatient SEWJASENAMJELENA [id number] Jelena 11:00:00 11:00:00 AHMED Seybol d 2023-01-18 2023-01-18 Outpatient HUNDLJELENA [id number] Jelena 00:00:00 00:00:00 ROBYN Seybol d 2023-01-17 2023-01-17 Outpatient PREZASJELENA [id number] Jelena 00:00:00 00:00:00 BYRON Seybol d 2023-01-14 2023-01-14 Outpatient FARIDALJELENA [id number] Jelena 00:00:00 00:00:00 ROBYN Seybol d 2023-01-07 2023-01-07 Outpatient JELENA GARY [id number] Jelena 00:00:00 00:00:00 ROBYN Seybol d 2023-01-06 2023-01-06 Outpatient KAWAR, GAURAV KNIGHT [id number] Jelena 00:00:00 00:00:00 Seybol d 2023-01-06 2023-01-06 Outpatient FARIDALJELENA [id number] Jelena 00:00:00 00:00:00 ROBYN Seybol d 2023-01-06 2023-01-06 Outpatient MERRILLJELENA [id number] Jelena 00:00:00 00:00:00 JAROD Seybol d 2023-01-01 2023-01-01 Outpatient HUNDLJELENA [id number] Jelena 10:30:00 10:30:00 ROBYN Seybol d 2023-01-01 2023-01-01 Outpatient JELENA GARY JELENA [id number] Jelena 00:00:00 00:00:00 ROBYN Seybol d 2022-12-31 2022-12-31 Outpatient PLABPA JELENA KNIGHT [id number] Jelena 09:00:00 09:00:00 Seybol d 2022-12-30 2022-12-30 Outpatient JELENA GARY JELENA [id number] Jelena 10:30:00 10:30:00 ROBYN Seybol d 2022-12-29 2022-12-29 Outpatient LAB90 JELENA KNIGHT [id number] Jelena 11:20:00 11:20:00 Seybol d 2022-12-29 2022-12-29 Outpatient COOKIE JELENA KNIGHT [id number] Jelena 10:30:00 10:30:00 ROBYN Seybol d 2022-12-29 2022-12-29 Outpatient COOKIE JELENA KNIGHT [id number] Jelena 00:00:00 00:00:00 ROBYN Seybol d 2022-12-29 2022-12-29 Outpatient SEWJASENLITO JELENA KNIGHT [id number] Jelena 00:00:00 00:00:00 AHMED Seybol d 2022-12-26 2022-12-26 Outpatient PLABPA JELENA KNIGHT [id number] Jelena 09:00:00 09:00:00 Seybol d 2022-12-26 2022-12-26 Outpatient JELENA BYNUM [id number] Jelena 00:00:00 00:00:00 JENNIFER Seybol d 2022-12-26 2022-12-26 Outpatient JELENA MALHOTRA [id number] Jelena 00:00:00 00:00:00 BYRON Seybol d 2022-12-25 2022-12-25 Outpatient GAURAV PURVIS [id number] Jelena 00:00:00 00:00:00 Seybol d 2022-12-24 2022-12-24 Outpatient PLABPA JELENA KNIGHT [id number] Jelena 11:30:00 11:30:00 Seybol d 2022-12-22 2022-12-22 Outpatient GAURAV PURVIS JELENA KNIGHT [id number] Jelena 09:00:00 09:00:00 Seybol d 2022-12-22 2022-12-22 Outpatient JELENA GARY [id number] Jelena 00:00:00 00:00:00 ROBYN Seybol d 2022-12-20 2022-12-20 Outpatient JELENA CRUZ [id number] Jelena 00:00:00 00:00:00 JALYN Seybol d 2022-12-19 2022-12-19 Outpatient JELENA MALHOTRA [id number] Jelena 00:00:00 00:00:00 BYRON Seybol d 2022-12-18 2022-12-18 Outpatient JELENA GARY [id number] Jelena 00:00:00 00:00:00 ROBYN Seybol d 2022-12-18 2022-12-18 Outpatient JELENA GARY [id number] Jelena 00:00:00 00:00:00 ROBYN Seybol d 2022-12-15 2022-12-15 Outpatient RUSSELL KNIGHT [id number] Jelena 00:00:00 00:00:00 MD ANKITA Seybol d 2022-12-15 2022-12-15 Outpatient JELENA MARTINEZ [id number] Jelena 00:00:00 00:00:00 MANOLO Seybol d 2022-12-15 2022-12-15 Outpatient JELENA GIVENS [id number] Jelena 00:00:00 00:00:00 GAUTAM Seybol d 2022-12-12 2022-12-12 Outpatient JELENA GIVENS [id number] Jelena 10:30:00 10:30:00 GAUTAM Seybol d 2022-12-12 2022-12-12 Outpatient JELENA KNIGHT [id number] Jelena 00:00:00 00:00:00 Seybol d 2022-12-12 2022-12-12 Outpatient JELENA MALHOTRA [id number] Jelena 00:00:00 00:00:00 BYRON Seybol d 2022-12-11 2022-12-11 Outpatient PRENIDA JELENA KNIGHT [id number] Jelena 00:00:00 00:00:00 BYRON Seybol d 2022-12-08 2022-12-08 Outpatient MERRILLJELENA AN [id number] Jelena 10:40:00 10:40:00 JAROD Seybol d 2022-12-08 2022-12-08 Outpatient JELENA KNIGHT [id number] Jelena 10:25:00 10:25:00 Seybol d 2022-12-08 2022-12-08 Outpatient GAURAV PURVIS [id number] Jelena 08:30:00 08:30:00 Seybol d 2022-12-08 2022-12-08 Outpatient FARIDALJELENA [id number] Jelena 00:00:00 00:00:00 ROBYN Seybol d 2022-12-04 2022-12-04 Outpatient PRENIDAJELENA [id number] Jelena 00:00:00 00:00:00 BYRON Seybol d 2022-12-04 2022-12-04 Outpatient MERRILLJELENA [id number] Jelena 00:00:00 00:00:00 JAROD Seybol d 2022-12-04 2022-12-04 Outpatient JELENA KNIGHT [id number] Jelena 00:00:00 00:00:00 Seybol d 2022-12-04 2022-12-04 Outpatient FARIDAL, JELENA KNIGHT [id number] Jelena 00:00:00 00:00:00 ROBYN Seybol d 2022-12-01 2022-12-01 Outpatient HUNDL, JELENA KNIGHT [id number] Jelena 00:00:00 00:00:00 ROBYN Seybol d 2022-11-27 2022-11-27 Outpatient PLVIVEK [id number] Jelena 10:30:00 10:30:00 Seybol d 2022-11-27 2022-11-27 Outpatient MYKELSEYONL JELENA KNIGHT [id number] Jelena 00:00:00 00:00:00 MD ANKITA Seybol d 2022-11-27 2022-11-27 Outpatient RUSSELL JELENA KNIGHT [id number] Jelena 00:00:00 00:00:00 MD ANKITA Seybol d 2022-11-21 2022-11-21 Outpatient JELENA GARY [id number] Jelena 00:00:00 00:00:00 ROBYN Seybol d 2022-11-20 2022-11-20 Outpatient SFA [facility] [id number] Jarod 10:08:21 10:08:21 0323 F Lee 2022-11-19 2022-11-19 Outpatient JELENA GARY [id number] Jelena 00:00:00 00:00:00 ROBYN Seybol d 2022-11-14 2022-11-14 Outpatient JELENA GARY [id number] Jelena 00:00:00 00:00:00 ROBYN Seybol d 2022-11-14 2022-11-14 Outpatient JELENA KNIGHT [id number] Jelena 00:00:00 00:00:00 Seybol d 2022-11-11 2022-11-11 Outpatient JELENA GARY [id number] Jelena 00:00:00 00:00:00 ROBYN Seybol d 2022-11-07 2022-11-07 Outpatient JELENA VICK [id number] Jelena 00:00:00 00:00:00 DARLIN Seybo ld 2022-11-07 2022-11-07 Outpatient JELENA VICK [id number] Jelena 00:00:00 00:00:00 DARLIN Seybo ld 2022-11-07 2022-11-07 Outpatient JELENA VICK [id number] Jelena 00:00:00 00:00:00 DARLIN Seybo ld 2022-11-07 2022-11-07 Outpatient JELENA VICK [id number] Jelena 00:00:00 00:00:00 DARLIN Seybo ld 2022-11-07 2022-11-07 Outpatient JELENA GARY [id number] Jelena 00:00:00 00:00:00 ROBYN Seybol d 2022-11-07 2022-11-07 Outpatient HUNDL, JELENA KNIGHT [id number] Jelena 00:00:00 00:00:00 ROBYN Seybol d 2022-11-07 2022-11-07 Outpatient HUNDL, JELENA KNIGHT [id number] Jelena 00:00:00 00:00:00 ROBYN Seybol d 2022-11-07 2022-11-07 Outpatient HUNDL, JELENA KNIGHT [id number] Jelena 00:00:00 00:00:00 ROBYN Seybol d 2022-11-07 2022-11-07 Outpatient HUNDL, JELENA KNIGHT [id number] Jelena 00:00:00 00:00:00 ROBYN Seybol d 2022-11-07 2022-11-07 Outpatient HUNDL, JELENA KNIGHT [id number] Jelena 00:00:00 00:00:00 ROBYN Seybol d 2022-10-30 2022-10-30 Outpatient [facility] [id number] Jarod 08:26:44 08:26:44 0302 F Lee 2022-10-30 2022-10-30 Outpatient FARIDAL, JELENA KNIGHT [id number] Jelena 00:00:00 00:00:00 ROBYN Seybol d 2022-10-29 2022-10-29 Outpatient HUNDL, JELENA KNIGHT [id number] Jelena 00:00:00 00:00:00 ROBYN Seybol d 2022-10-29 2022-10-29 Outpatient FARIDAL, JELENA KNIGHT [id number] Jelena 00:00:00 00:00:00 ROBYN Seybol d 2022-10-29 2022-10-29 Outpatient FARIDAL, JELENA KNIGHT [id number] Jelena 00:00:00 00:00:00 ROBYN Seybol d 2022-10-29 2022-10-29 Outpatient JELENA VICK [id number] Jelena 00:00:00 00:00:00 DARLIN Eatono ld 2022-10-28 2022-10-28 Outpatient [facility] JELENA KNIGHT [id number] Jelena 09:45:00 09:45:00 Seybol d 2022-10-28 2022-10-28 Outpatient NAVA JELENA KNIGHT [id number] Jelena 09:00:00 09:00:00 DARLIN Seybo ld 2022-10-23 2022-10-23 Outpatient FARIDAJessica JELENA KNIGHT [id number] Jelena 00:00:00 00:00:00 ROBYN Seybol d 2022-10-22 2022-10-22 Outpatient COOKIE JELENA KNIGHT [id number] Jelena 08:00:00 08:00:00 ROBYN Seybol d 2022-10-13 2022-10-13 Outpatient [facility] [id number] Jarod 11:24:16 11:24:16 0213 F Lee 2022-10-10 2022-10-10 Outpatient LAB90 JELENA KNIGHT [id number] Jelena 09:25:00 09:25:00 Seybol d 2022-10-10 2022-10-10 Outpatient COOKIE JELENA KNIGHT [id number] Jelena 08:30:00 08:30:00 ROBYN Seybol d 2022-10-10 2022-10-10 Outpatient COOKIE JELENA KNIGHT [id number] Jelena 00:00:00 00:00:00 ROBYN Seybol d 2022-10-09 2022-10-09 Outpatient COOKIE JELENA KNIGHT [id number] Jelena 08:30:00 08:30:00 ROBYN Seybol d 2022-10-09 2022-10-09 Outpatient JELENA GARY [id number] Jelena 00:00:00 00:00:00 ROBYN Seybol d 2022-09-30 2022-09-30 Outpatient JELENA GARY [id number] Jelena 00:00:00 00:00:00 ROBYN Seybol d 2022-09-26 2022-09-26 Outpatient JELENA GARY [id number] Jelena 00:00:00 00:00:00 ROBYN Seybol d 2022-09-24 2022-09-24 Outpatient LAB90 JELENA KNIGHT [id number] Jelena 17:05:00 17:05:00 Seybol d 2022-09-24 2022-09-24 Outpatient COOKIE JELENA KNIGHT [id number] Jelena 11:00:00 11:00:00 ROBYN Seybol d 2022-09-22 2022-09-22 Outpatient SFA SFA [id number] Jarod 09:21:24 09:21:24 0123 F Lee 2022-09-22 2022-09-22 Outpatient COOKIE JELENA KNIGHT [id number] Jelena 00:00:00 00:00:00 ROBYN Seybol d 2022-09-17 2022-09-17 Outpatient COOKIE JELENA KNIGHT [id number] Jelena 00:00:00 00:00:00 ROBYN Seybol d 2022-09-12 2022-09-12 Outpatient COOKIE JELENA KNIGHT [id number] Jelena 00:00:00 00:00:00 ROBYN Seybol d 2022-09-11 2022-09-11 Outpatient COOKIE JELENA KNIGHT [id number] Jelena 00:00:00 00:00:00 ROBYN Seybol d 2022-09-10 2022-09-10 Outpatient SFA SFA [id number] Jarod 11:36:44 11:36:44 0111 F Lee 2022-09-10 2022-09-10 Outpatient [id number] 00:00:00 00:00:00 Visit 87da-47c3 7da-47c3-b -ia48-4d0 d00-0c2d9t [id number] 2022-09-09 2022-09-09 Outpatient LAB90 JELENA KNIGHT [id number] Jelena 09:30:00 09:30:00 Seybol d 2022-09-09 2022-09-09 Outpatient JELENA GARY [id number] Jelena 08:30:00 08:30:00 ROBYN Seybol d 2022-09-09 2022-09-09 Outpatient JELENA GARY [id number] Jelena 00:00:00 00:00:00 ROBYN Seybol d 2022-09-04 2022-09-04 Outpatient SFA SFA [id number] Jarod 08:29:33 08:29:33 0105 F Lee 2022-09-04 2022-09-04 Outpatient [id number] 00:00:00 00:00:00 Visit 8gp7-4lo5 bd9-4ec7-b -bbc8-d95 bc8-d957ab [id number] 2022-08-28 2022-08-28 Outpatient SFA [facility] [id number] Jarod 11:35:11 11:35:11 [id number] F Lee 2022-08-28 2022-08-28 Outpatient [id number] 00:00:00 00:00:00 Visit 010b-47c2 10b-47c2-b -n4g4-d41 7d5-x273b1 6v4324e7t 517b1b 2022-05-24 2022-05-24 [id number] 15:15:00 18:38:00 2381-551e 81-551e-843 36 -843c-ca8 c-gt4t5090i [id number] 5eb 2022-03-15 2022-03-15 Outpatient REXREEN_[facility] [address] [place] 10:56:00 10:56:00 HANA 0716 da [facility] 2020-11-29 2020-11-29 Outpatient Gracia GRAFF [facility] [id number] Univers 15:30:00 15:30:00 ANNEMARIE magaña [facility] 2020-10-23 2020-10-23 Telephone Alexandre Delgado 1.2.840.114 [id number] [facility] 00:00:00 00:00:00 [facility] 350.1.13.10 [facility] HEALTH 4.2.7.2.686 Marvelslim tillman UNIT [phone] [address] 2020-10-23 2020-10-23 Telephone Alexandre Delgado 1.2.840.114 [id number] 00:00:00 00:00:00 [facility] 350.1.13.10 HEALTH 4.2.7.2.686 UNIT [id number] 362 2020-10-12 2020-10-12 Outpatient R BIANCHI [facility] [id number] Univers 09:00:00 09:00:00 SHEY ity of [facility] 2020-09-27 2020-09-27 Orders Doctor CONNER 1.2.840.114 [id number] Univers 00:00:00 00:00:00 Only Unassigned, LESLEY 350.1.13.10 ity of [facility] 4.2.7.2.686 Marvel as [phone] [address] 2020-09-27 2020-09-27 Orders Doctor CONNER 1.2.840.114 [id number] 00:00:00 00:00:00 Only Unassigned, LESLEY 350.1.13.10 [facility] 4.2.7.2.686 [id number] 009 2020-09-20 2020-09-20 [facility] 1.2.840.114 [id number] [facility] 00:00:00 00:00:00 Shey Lopez [facility] 350.1.13.10 it y of Surgical 4.2.7.2.686 Marvel as Specialti [phone] Md dical es 198 [facility] 2020-09-20 2020-09-20 [facility]phone [facility] 1.2.840.114 [id number] 00:00:00 00:00:00 Shey Lopez [facility] 350.1.13.10 Surgical 4.2.7.2.[phone] 2020-09-07 2020-09-07 Office [facility] 1.2.290.393 [id number] [facility] 09:03:53 09:52:26 Visit Shey Lopez Health 350.1.13.10 it y of Surgical 4.2.7.2.686 Marvel as Specialti [phone] Md dical es 198 [facility] 2020-09-07 2020-09-07 Office [facility] 1.2.194.312 [id number] 09:03:53 09:52:26 Visit Shey L Health 350.1.13.10 Surgical 4.2.7.2.686 Specialti [phone] es [address] 2020-09-07 2020-09-07 Outpatient [facility] [id number] Univers 09:00:00 09:00:00 SHEY [facility] 2020-08-30 2020-08-30 Outpatient Gracia [facility] [id number] Univers 08:30:00 08:30:00 [facility] 2020-08-20 2020-08-20 [facility] 1.2.840.114 [id number] Univers 10:11:58 23:59:00 Encounter Health 350.1.13.10 [place] [phone] [facility] [address] ([facility]) 2020-08-20 2020-08-20 Outpatient R [facility]Y [facility] [id number] Univers 10:11:58 23:59:00 ity [facility] 2020-08-16 2020-08-16 Jo [facility] 1.2.840.114 [id number] Univers 00:00:00 00:00:00 [facility] 350.1.13.10 it y of [place] 4.2.7.2.686 Marvel as Professio [phone] [address] Office [address] [facility] 2020-08-02 2020-08-02 Office Care, Ang Primary BRAZORIA 1.2.840 .114 [id number] Univers 10:40:31 12:20:58 Visit Alexandre Delgado [facility] 350.1.13.10 ity of [place] [phone] [address] 2020-08-02 2020-08-02 Outpatient R [facility]Y [facility] [id number] Univers 10:30:00 10:30:00 ity [facility] 2020-08-02 2020-08-02 Orders Doctor PRIETO 1.2.840.114 [id number] Univers 00:00:00 00:00:00 Only Unassigned, LESLEY 350.1.13.10 ity of [place] [facility] 4.2.7.2.686 [place] as [phone] [address] 2020-05-31 2020-05-31 [facility] [id number] Univers 08:50:00 08:50:00 ILIANA ity [facility] 2020-05-24 2020-05-24 Outpatient R [facility] [id number] Univers 00:00:00 00:00:00 ity [facility] 2020-05-22 2020-05-22 [facility] [id number] Univers 09:50:00 09:50:00 IILANA [facility] 2020-05-17 2020-05-21 Office Care, Ang Primary KASHMIRORIA 1.2.840 .114 [id number] Univers 11:05:31 09:49:52 Visit Alexandre Delgado [facility] 350.1.13.10 [place] [phone] [address] 2020-05-21 2020-05-21 Outpatient R ALEXANDRE DELGADO [facility] [id number] Univers 00:00:00 00:00:00 ity of [facility] 2020-05-17 2020-05-17 Outpatient R [facility] [id number] Univers 10:30:00 10:30:00 ity [facility] 2020-05-17 2020-05-17 Orders Doctor PRIETO 1.2.840.114 [id number] Univers 00:00:00 00:00:00 Only Unassigned, LESLEY 350.1.13.10 [facility] 4.2.7.2.686 [place] as [phone] [address] 2020-05-08 2020-05-08 Outpatient [facility] [id number] Univers 08:30:00 08:30:00 ANNEMARIE magaña [facility] 2020-05-08 2020-05-08 [facility] 1.2.840.114 [id number] Univers 07:05:41 07:35:41 ne Visit Annemarie AVILES 350.1.13.10 [place] [phone] Md suman Anderson2 [facility] 2020-05-01 2020-05-01 Outpatient R DAJUAN [facility] [id number] Univers 09:30:00 09:30:00 ANNEMARIEDANIS arshad o f [facility] 2020-04-24 2020-04-24 Outpatient R DAJUAN [facility] [id number] Univers 09:30:00 09:30:00 ANNEMARIE arshad o f [facility] 2020-03-08 2020-03-20 Office Care, Ang Primary ROSY 1.2.840 .114 [id number] Univers 10:02:59 09:15:53 Visit Alexandre Delgado [facility] 350.1.13.10 [place] [phone] [facility] [address] 2020-03-16 2020-03-16 Hospital Alexandre Delgado [facility] 1.2.840.114 [id number] Univers 07:51:00 23:59:00 Encounter Hoffmeister 350.1.13.10 ity of [place] 4.2.7.2.686 [facility] [place] [phone] [facility] [address] 2020-03-16 2020-03-16 Outpatient R ALEXANDRE DELGADO [facility] [id number] Univers 00:00:00 00:00:00 ity of [facility] 2020-03-13 2020-03-13 Telephone Alexandre Delgado 1.2.840.114 [id number] Univers 00:00:00 00:00:00 [facility] 350.1.13.10 [place] [phone] [facility] CARE - [address] RITIKA 2020-03-08 2020-03-08 Outpatient R ALEXANDRE DELGADO [facility] [id number] Univers 10:00:00 10:00:00 ity of [facility] 2020-03-08 2020-03-08 Orders Doctor PRIETO 1.2.840.114 [id number] Univers 00:00:00 00:00:00 Only Unassigned, LESLEY 350.1.13.10 ity of [place] [facility] 4.2.7.2.686 [place] as [phone] [facility] [address] [place] 2020-02-29 2020-02-29 Telephone Alexandre Delgado 1.2.840.114 [id number] Univers 00:00:00 00:00:00 [facility] 350.1.13.10 [place] [phone] [facility] [address] [place] 2020-02-14 2020-02-14 [facility] 1.2.525.790 [id number] Univers 00:00:00 00:00:00 Dannie Hoffmeister 350.1.13.10 [place] [phone] [facility] [address] [place] [address] 2020-02-10 2020-02-10 Outpatient R [facility] [id number] Univers 09:00:00 09:00:00 ity of [facility] 2020-02-10 2020-02-10 Orders Doctor PRIETO 1..840.114 [id number] Univers 00:00:00 00:00:00 Only Unassigned, LESLEY 350.1.13.10 ity of [place] [facility] 4.2.7.2.686 [place] [phone] [address] 2020-01-24 2020-01-24 [facility] [id number] Univers 10:40:00 10:40:00 PRETTYPIYUSHYOUNG ity o f [facility]ly [facility] 2020-01-24 2020-01-24 [facility] 1.2.840.114 [id number] Univers 07:57:10 08:17:10 ne Visit Dannie Hoffmeister [id number] [id number] [phone] Md dical nal [address] [place] [address] 2020-01-18 2020-01-18 Outpatient R [facility] [id number] Univers 13:00:00 13:00:00 ity of [facility] 2019-11-10 2019-11-10 Telephone Alexandre Delgado 1.2.840.114 [id number] Univers 00:00:00 00:00:00 [facility] [id number] it [id number] [id number] [address] 2019-11-03 2019-11-03 Outpatient R ALEXANDRE DELGADO [facility] [id number] Univers 08:15:00 08:15:00 ity of [facility] 2019-10-25 2019-10-25 Office [facility] 1.2.840.114 [id number] Univers 08:48:06 09:27:18 Visit Annemarie AVILES [id number] it[place] [phone] Md dical VICTORY 072 [facility] 2019-10-25 2019-10-25 Outpatient [facility] [id number] Univers 09:00:00 09:00:00 ANNEMARIE tafoyay o f [facility] 2019-10-24 2019-10-24 Office [facility] 1.2.840.114 [id number] Univers 10:57:17 15:44:20 Visit Dannie Gaspar [id number] ity [facility] [id number] [phone] Md dical nal 059 [facility] 2019-10-24 2019-10-24 Outpatient R FER [facility] [id number] Univers 11:00:00 11:00:00 ALTONYOUNG pavithra o f [facility] 2019-09-29 2019-09-29 Office Care, Aries GALLEGOS 1.2.840 .114 [id number] Univers 10:38:08 11:16:42 Visit Alexandre Delgado [facility] [id number] it[id number] [phone] [address] 2019-09-29 2019-09-29 Outpatient R SAMEER DELGADOCY [facility] [id number] Univers 10:00:00 11:16:42 ity of [facility] 2019-09-14 2019-09-14 Telephone Alexandre Delgado ROYS 1.2.840.114 [id number] Univers 00:00:00 00:00:00 [facility] [id number] it [id number] [phone] [address] 2019-09-08 2019-09-08 Orders Doctor CONNER 1.2.840.114 [id number] Univers 00:00:00 00:00:00 Only Unassigned, LESLEY 350.1.13.10 ity of [facility] 4.2.7.2.686 [place] as [phone] [address] 2019-05-05 2019-05-05 Telephone Alexandre Delgado 1.2.840.114 [id number] Univers 00:00:00 00:00:00 [facility] 350.1.13.10 it [id number] [phone] [address] 2019-04-28 2019-04-28 Office Care, [facility] Bob ROSY 1.2.840 .114 [id number] Univers 09:26:40 11:38:19 Visit Alexandre Delgado [facility] [id number] ity of [id number] [phone] [address] 2019-04-28 2019-04-28 Orders Doctor CONNER 1.2.840.114 [id number] Univers 00:00:00 00:00:00 Only Unassigned, LESLEY 350.1.13.10 ity of [facility] 4.2.7.2.686 [place] as [phone] [address] Results Test Description Test Time Test Comments Results Result Comments Source MANUAL DIFFERENTIAL 2023-04-16 14:30:07 Test Item Value Reference Range Interpretation Comme nts NEUTROPHILS - REL (DIFF) (BEAKER) (test code = 1359) 54 % LYMPHOCYTES - REL (DIFF) (BEAKER) (test code = 1360) 7 % MONOCYTES - REL (DIFF) (BEAKER) (test code = 1361) 4 % EOSINOPHILS - REL (DIFF) (BEAKER) (test code = 1362) 10 % BANDS - REL (DIFF) (BEAKER) (test code = 1348) 1 % 0-10 ATYPICAL LYMPHOCYTE - REL (DIFF) (BEAKER) (test code = 260) 24 % 0-0 H NEUTROPHILS - ABS (DIFF) (BEAKER) (test code = 1365) 4.48 K/ L 1 .80-8.00 LYMPHOCYTES - ABS (DIFF) (BEAKER) (test code = 1366) 0.58 K/ L 1 .48-4.50 L MONOCYTES - ABS (DIFF) (BEAKER) (test code = 1367) 0.33 K/ L 0.0 0-1.30 EOSINOPHILS - ABS (DIFF) (BEAKER) (test code = 1368) 0.83 K/ L 0 .00-0.50 H BANDS-ABS (DIFF) (BEAKER) (test code = 1349) 0.1 K/ L 0.0-0.8 ATYPICAL LYMPHOCYTES - ABS (DIFF) (BEAKER) (test code = 263) 1.99 K/ L 0.00-0.00 H TOTAL COUNTED (BEAKER) (test code = 1351) 100 BANDS + SEGMENTED NEUTROPHILS (BEAKER) (test code = 1352) 4.57 WBC MORPHOLOGY (BEAKER) (test code = 487) Normal PLT MORPHOLOGY (BEAKER) (test code = 486) Normal RBC MORPHOLOGY (BEAKER) (test code = 762) Normal CBC W/PLT COUNT & AUTO [id number] 14:30:06 Test Item Value Reference Range Interpretation Comments WHITE BLOOD CELL COUNT (BEAKER) 8.3 K/ L 4.0-10.0 (test code = 775) RED BLOOD CELL COUNT (BEAKER) 4.34 M/ L 4.00-5.00 (test code = 761) HEMOGLOBIN (BEAKER) (test code = 12.5 GM/DL 12.0-15.5 410) HEMATOCRIT (BEAKER) (test code = 37.4 % 36.0-46.0 411) MEAN CORPUSCULAR VOLUME (BEAKER) 86 fL 82-99 (test code = 753) MEAN CORPUSCULAR HEMOGLOBIN 28.8 pg 27.0-33.0 (BEAKER) (test code = 751) MEAN CORPUSCULAR HEMOGLOBIN CONC 33.4 GM/DL 32.0-36.0 (BEAKER) (test code = 752) RED CELL DISTRIBUTION WIDTH 14.1 % 12.0-15.0 (BEAKER) (test code = 412) PLATELET COUNT (BEAKER) (test 255 K/CU MM 150-430 code = 756) MEAN PLATELET VOLUME (BEAKER) 10.7 fL 6.0-11.5 (test code = 754) NUCLEATED RED BLOOD CELLS 0 /100 WBC 0-0 (BEAKER) (test code = 413) NEUTROPHILS RELATIVE PERCENT 53 % (BEAKER) (test code = 429) LYMPHOCYTES RELATIVE PERCENT 29 % (BEAKER) (test code = 430) MONOCYTES RELATIVE PERCENT 6 % (BEAKER) (test code = 431) EOSINOPHILS RELATIVE PERCENT 11 % (BEAKER) (test code = 432) BASOPHILS RELATIVE PERCENT 0 % (BEAKER) (test code = 437) NEUTROPHILS ABSOLUTE COUNT 4.43 K/ L 1.80-8.00 (BEAKER) (test code = 670) LYMPHOCYTES ABSOLUTE COUNT 2.41 K/ L 1.48-4.50 (BEAKER) (test code = 414) MONOCYTES ABSOLUTE COUNT (BEAKER) 0.52 K/ L 0.00-1.30 (test code = 415) EOSINOPHILS ABSOLUTE COUNT 0.87 K/ L 0.00-0.50 H (BEAKER) (test code = 416) BASOPHILS ABSOLUTE COUNT (BEAKER) 0.03 K/ L 0.00-0.20 (test code = 417) IMMATURE GRANULOCYTES-RELATIVE 0.60 % 0.00-0.00 H PERCENT (BEAKER) (test code = 2801) TROPONIN [id number] 14:12:53 Test Item Value Reference Range Interpretation Comments TROPONIN I (BEAKER) (test code = 0.03 ng/mL 0.00-0.15 397) Troponin I (TnI) levels must be interpreted in the context of the presenting symptoms and the clinical findings. Elevated TnI levels indicate myocardial damage, but are not specific for ischemic heart disease. Elevated TnI levels are seen in patients with other cardiac conditions (including myocarditis and congestive heart failure), and slight TnI elevations occur in patients with other conditions, including sepsis, renal failure, acidosis, acute neurological disease, and persistent tachyarrhythmia.Allergist ID - DSENSONCOMPREHENSIVE METABOLIC [id number] 14:10:56 Test Item Value Reference Range Interpretation Comments TOTAL PROTEIN 7.6 gm/dL 6.0-8.5 (BEAKER) (test code = 770) ALBUMIN (BEAKER) 3.9 g/dL 3.5-5.0 (test code = 1145) ALKALINE 51 U/L 30-115 PHOSPHATASE (BEAKER) (test code = 346) BILIRUBIN TOTAL 0.4 mg/dL 0.1-1.2 (BEAKER) (test code = 377) SODIUM (BEAKER) 140 meq/L 135-148 (test code = 381) POTASSIUM (BEAKER) 3.4 meq/L 3.6-5.5 L (test code = 379) CHLORIDE (BEAKER) 109 meq/L 98-106 H (test code = 382) CO2 (BEAKER) (test 21 meq/L 20-29 code = 355) BLOOD UREA 7 mg/dL 10-26 L NITROGEN (BEAKER) (test code = 354) CREATININE 0.67 mg/dL 0.50-1.20 (BEAKER) (test code = 358) GLUCOSE RANDOM 70 mg/dL 70-110 (BEAKER) (test code = 652) CALCIUM (BEAKER) 9.7 mg/dL 8.5-10.5 (test code = 697) AST (SGOT) 9 U/L 5-40 (BEAKER) (test code = 353) ALT (SGPT) 10 U/L 5-50 (BEAKER) (test code = 347) EGFR (BEAKER) 121 Interpretatio n of eGFR (test code = 1092) mL/min/1.[address] age Description sq m Result G1 Landy l or high >=90 G2 Mildly decreased 60-89 G3a Mildl y to moderately 45-5 9 G3b Moderately to s everely 30-44 G4 Severl y decreased 15-29 G5 Kidney failure <15Reported eGF R is based on the CKD-EPI 2020 equation that d oes not use a race coefficientEsti mated GFR is not as accur ate as Creatinine Sharon kingston in predicting glom erular filtration rate . Estimated GFR is not appl icable for dialysis patien ts Allergist ID - DSENSONOperator ID - DSENSONOperator ID - DSENSONOperator ID - DSENSONOperator ID - DSENSONOperator ID - DSENSONOperator ID - DSENSONOperator ID - DSENSONOperator ID - DSENSONOperator ID - DSENSONOperator ID - DSENSONOperator ID - DSENSONOperator ID - DSENSONOperator ID - DSENSONOperatorID - DSENSONOperator ID - DSENSONOperator ID - DSENSONOperator ID - DSENSONOperator ID - DSENSONPROTHROMBIN [id number] 14:03:14 Test Item Value Reference Range Interpretation Comments PROTIME (BEEDISON) 10.3 seconds 9.3-12.0 Final Infor mation (test code = 759) (Auto Outp ut) INR (BEAKER) (test 0.96 See_Comment Final Inf ormation code = 370) (Auto Output) [Automated mess age] The system [employer] generated this result transmitted ref erence range: <=5.90. The reference range was not used to int erpret this result as normal/abnormal . RECOMMENDED COUMADIN/WARFARIN INR THERAPY RANGESSTANDARD DOSE: 2.0 - 3.0 Includes: PROPHYLAXIS for venous thrombosis, systemic embolization; TREATMENT for venous thrombosis and/or pulmonary embolus.HIGH RISK: Target INR is 2.5-3.5 for patients with mechanical heart valves.CT BRAIN WITHOUT IV [id number] 12:52:28[facility] : 1995 Sex: FCT BRAIN WITHOUT IV CONTRASTCLINICAL INDICATION: Seizure disorder, no clinical changeCOMPARISON: NoneTECHNIQUE: Noncontrast axial CT imaging of the brain and skull. DOSE REDUCTION: Dose modulation, iterative reconstruction, and/orweight-based adjustment of the mA/kV was utilized to reduce theradiation dose to as low as reasonably achievable.FINDINGS:No intracranial hemorrhage, midline shift or mass effect. Enlarged,partially empty sella. No hydrocephalus.Orbits are within normal limits.No obstructive paranasal sinus disease.IMPRESSION:No acute intracranial findingsIf there is persistent clinical concern for intracranial pathology, MRexamination is recommended for further characterization.Electronically Signed By: Krystle Quiroz04/16/2023 12:54 CDTWorkstation Name: [id number] W/ REFLEX URINE [id number] 12:27:52 Test Item Value Reference Range Interpretation Comments COLOR (BEAKER) (test code = Yellow 470) CLARITY (BEAKER) (test code = Slightly Cloudy 469) SPECIFIC GRAVITY UA (BEAKER) >= 1.001-1.035 (test code = 468) PH UA (BEAKER) (test code = 6.0 5.0-8.0 467) PROTEIN UA (BEAKER) (test Negative Negative code = 464) GLUCOSE UA (BEAKER) (test Negative Negative code = 365) KETONES UA (BEAKER) (test Negative Negative code = 371) BILIRUBIN UA (BEAKER) (test Negative Negative code = 462) BLOOD UA (BEAKER) (test code Negative Negative = 461) NITRITE UA (BEAKER) (test Negative Negative code = 465) LEUKOCYTE ESTERASE UA Negative Negative (BEAKER) (test code = 466) UROBILINOGEN UA (BEAKER) 0.2 (test code = 463) BACTERIA (BEAKER) (test code Few = 517) MUCUS (BEAKER) (test code = Few 1574) CALCIUM OXALATE CRYSTALS Moderate (BEAKER) (test code = 518) RBC UA-MANUAL (BEAKER) (test <5 /HPF code = 1659) WBC UA-MANUAL (BEAKER) (test <5 /HPF code = 1661) SQUAMOUS EPITHELIAL MANUAL <5 /HPF (BEAKER) (test code = 1663) SOURCE(BEAKER) (test code = 2795) RAPID DRUG SCREEN, [id number] 12:19:24 Test Item Value Reference Range Interpretation Comments BARBITURATE URINE (BEAKER) (test Negative Negative code = 725) BENZODIAZEPINE SCREEN URINE (BEAKER) Positive Negative A (test code = 726) COCAINE (METAB.) SCREEN (BEAKER) Negative Negative (test code = 1164) METHADONE SCREEN (BEAKER) (test code Negative Negative = 1436) OPIATE SCREEN URINE (BEAKER) (test Negative Negative code = 734) CANNABINOID SCREEN URINE (BEAKER) Positive Negative A (test code = 727) AMPH/METHAMPH SCREEN (BEAKER) (test Negative Negative code = 1438) PHENCYCLIDINE SCREEN URINE (BEAKER) Negative Negative (test code = 608) PH UA (BEAKER) (test code = 467) 6.0 5.0-8.0 DRUG CUTOFF CONC.Cocaine 300 ng/mL Cannabinoid 50 ng/mLBenzodiazepine 200 ng/mLBarbiturate 200 ng/mLPhencyclidine 25 ng/mLOpiate 300 ng/mLMethadone 300 ng/mLAmphetamine/ 1000 ng/mL MethamphetamineThis assay provides an unconfirmed qualitative test result for the clinical management of patients in emergency situations. Chain of custody not maintained. Some psme-wfd-uynqkzy medications, as well as adulterants, may cause inaccurate results. Clinical correlation should be applied. A more comprehensive drug screen or confirmation of a detected drug may be performed upon request.Allergist ID - DSENSONOperator ID - DSENSONOperator ID - DSENSONOperator ID - DSENSONOperator ID - DSENSONOperator ID - DSENSONOperator ID - DSENSONOperator ID - DSENSONTSH, THIRD GENERATION 2022-09-11 04:08:38 Test Item Value Reference Range Interpretation Comments TSH, THIRD 2.060 UIU/ML 0.400-4.100 UNLESS OTHERWI SE GENERATION (test INDICATED, ALL TESTING code = 2821) PERFORMED [facility]Y [facility]IES, [address] DIRECTOR: AZ AGUIRRE M.D. CLIA NUMBER [id number] CAP ACCREDITATION N O. [id number] COMPREHENSIVE METABOLIC [id number] 03:23:31 Test Item Value Reference Range Interpretation Comments GLUCOSE (test code = 80 MG/DL 70-99 2216) BUN (test code = 7 MG/DL 6-20 2207) CREATININE (test 0.55 MG/DL 0.60-1.30 L code = 2214) eGFR (2020 CKD-EPI) 127 >60 (test code = 41034) ML/MIN/1.73 CALC BUN/CREAT (test 13 RATIO - code = 2235) SODIUM (test code = 138 MEQ/L 088-570 1043) POTASSIUM (test code 3.9 MEQ/L 3.5-5.4 = 2227) CHLORIDE (test code 104 MEQ/L 95-107 = 5) CARBON DIOXIDE (test 21 MEQ/L 19-31 code [...] U/L 5-40 2218) CBC W/AUTO DIFF WITH [id number] 02:00:05 Test Item Value Reference Range Interpretation [...] RBCS 0.00 K/UL 0.00-0.11 (test code = 32115) CT/NG, NAAT, [id number] 20:52:50 Test Item Value Reference Range Interpretation Comments GONORRHEA, NAAT NEGATIVE NEGATIVE Note: Testi ng is (test code = 43866) performe d with Emili EDEL 6800/8800 systems using real-time polymerase cali n reaction (PCR) method. CHLAMYDIA, NAAT NEGATIVE NEGATIVE Note: Testi ng is (test code = 04531) performe d with Emili EDEL 6800/8800 systems using real-time polymerase cali n reaction (PCR) method. HEPATITIS PANEL, [id number] 05:02:20 Test Item Value Reference Range Interpretation Comments HEPATITIS A IgM (test NON-REACTIVE NON-REACTIVE code = 48537) HEPATITIS B CORE IgM NON-REACTIVE NON-REACTIVE (test code = 4644) HEPATITIS B SURF AG NON-REACTIVE NON-REACTIVE (test code = 2739) HEPATITIS C ANTIBODY NON-REACTIVE NON-REACTIVE (test code = 4675) INTERPRETATION (NOTE) Hepatitis A HEPATITIS A: (test code sero logy shows no = 9355) evidence of acu te hepatitis A. INTERPRETATION (NOTE) Hepatitis B HEPATITIS B: (test code sero logy shows no = 82851) evidence of acu te hepatitis B and no indication of exposure to hepatitis B vir us in the previous alejandra eight months. INTERPRETATION (NOTE) Hepatitis C HEPATITIS C: (test code sero logy shows no = 09534) evidence of exposure to hepatitisC viru s at this time. I t can take up to 12 months after exposure tothe hepatitis C vir us for antibodies to become detectab le in the blood in certain patient s. HIV 1/2 4TH GEN, RFLX [id number] 05:02:20 Test Item Value Reference Range Interpretation Comments HIV 1/2 4TH GEN, NON-REACTIVE NON-REACTIVE UNLESS OTH ERWISE RFLX CONF (test INDICATED, A LL TESTING code = 3514) PERFORMED [facility]. [address] [place] [id number] [place] [address] DIRECTOR: AZ AGUIRRE M.D. CLIA NUMBER [id number] CAP ACCREDITATION N O. [id number] RPR REFLEX TO T. PALLIDUM - [id number] 04:28:08 Test Item Value Reference Range Interpretation Comments RPR (test code = 85354) NON-REACTIVE NON-REACTIVE RPR TITER (test code = 3500) NOT INDIC. TITER NOT INDIC. CT/NG, TMA, [id number] 00:00:00 Test Item Value Reference Range Interpretation Comments GONORRHEA, NAAT (test code = 94969) NEGATIVE CHLAMYDIA, NAAT (test code = 40047) NEGATIVE CT/NG, TMA, [id number] 00:00:00 Test Item Value Reference Range Interpretation Comments GONORRHEA, NAAT (test code = 42506) NEGATIVE CHLAMYDIA, NAAT (test code = 26883) NEGATIVE RPR REFLEX TO T. PALLIDUM - [id number] 00:00:00 Test Item Value Reference Range Interpretation Comments RPR (test code = 17465) NON-REACTIVE RPR TITER (test code = 3500) NOT INDIC. TITER RPR REFLEX TO T. PALLIDUM - [id number] 00:00:00 Test Item Value Reference Range Interpretation Comments RPR (test code = 64514) NON-REACTIVE RPR TITER (test code = 3500) NOT INDIC. TITER ACUTE HEPATITIS [id number] 00:00:00 Test Item Value Reference Range Interpretation Comments HEPATITIS A IgM (test code = NON-REACTIVE 99070) HEPATITIS B CORE IgM (test code NON-REACTIVE = 4644) HEPATITIS B SURF AG (test code = NON-REACTIVE 2739) HEPATITIS C ANTIBODY (test code NON-REACTIVE = 4675) INTERPRETATION HEPATITIS A: (NOTE) (test code = 2552) INTERPRETATION HEPATITIS B: (NOTE) (test code = 83149) INTERPRETATION HEPATITIS C: (NOTE) (test code = 21951) ACUTE HEPATITIS [id number] 00:00:00 Test Item Value Reference Range Interpretation Comments HEPATITIS A IgM (test code = NON-REACTIVE 89573) HEPATITIS B CORE IgM (test code NON-REACTIVE = 4644) HEPATITIS B SURF AG (test code = NON-REACTIVE 2739) HEPATITIS C ANTIBODY (test code NON-REACTIVE = 4675) INTERPRETATION HEPATITIS A: (NOTE) (test code = 2552) INTERPRETATION HEPATITIS B: (NOTE) (test code = 29418) INTERPRETATION HEPATITIS C: (NOTE) (test code = 92654) HIV 1/2 4TH GEN, RFLX [id number] 00:00:00 Test Item Value Reference Range Interpretation Comments HIV 1/2 4TH GEN, RFLX CONF (test NON-REACTIVE code = 3514) HIV 1/2 4TH GEN, RFLX [id number] 00:00:00 Test Item Value Reference Range Interpretation Comments HIV 1/2 4TH GEN, RFLX CONF (test NON-REACTIVE code = 3514) VITAMIN D, 25 [id number] 03:25:23 Test Item Value Reference Range Interpretation [...] ATED, ALL TESTING PERFORM ED ATCLINICAL PATH [facility]. [address] [place] [address] LABORATORY DIRE CTOR: Rebeca COBB. CLIA NUMBER [id number] CAP ACCREDITATION N O. [id number] HIV 1/2 4TH GEN, RFLX [id number] 03:00:39 Test Item Value Reference Range Interpretation Comments HIV 1/2 4TH GEN, RFLX CONF (test NON-REACTIVE NON-REACTIVE code = 3514) HIV AB/AG COMBO RFLX [id number] 00:00:00 Test Item Value Reference Range Interpretation Comments HIV 1/2 4TH GEN, RFLX CONF (test NON-REACTIVE code = 3514) HIV AB/AG COMBO RFLX [id number] 00:00:00 Test Item Value Reference Range Interpretation Comments HIV 1/2 4TH GEN, RFLX CONF (test NON-REACTIVE code = 3514) VITAMIN D, 25 [id number] 00:00:00 Test Item Value Reference Range Interpretation Comments VITAMIN D, 25 OH (test code = 4958) 27 NG/ML VITAMIN D, 25 [id number] 00:00:00 Test Item Value Reference Range Interpretation Comments VITAMIN D, 25 OH (test code = 4958) 27 NG/ML HIV AB/AG COMBO RFLX [id number] 00:00:00 Test Item Value Reference Range Interpretation Comments HIV 1/2 4TH GEN, RFLX CONF (test NON-REACTIVE code = 3514) HIV AB/AG COMBO RFLX [id number] 00:00:00 Test Item Value Reference Range Interpretation Comments HIV 1/2 4TH GEN, RFLX CONF (test NON-REACTIVE code = 3514) VITAMIN D, 25 [id number] 00:00:00 Test Item Value Reference Range Interpretation Comments VITAMIN D, 25 OH (test code = 4958) 27 NG/ML VITAMIN D, 25 [id number] 00:00:00 Test Item Value Reference Range Interpretation Comments VITAMIN D, 25 OH (test code = 4958) 27 NG/ML HIV AB/AG COMBO RFLX [id number] 00:00:00 Test Item Value Reference Range Interpretation Comments HIV 1/2 4TH GEN, RFLX CONF (test NON-REACTIVE code = 3514) HIV AB/AG COMBO RFLX [id number] 00:00:00 Test Item Value Reference Range Interpretation Comments HIV 1/2 4TH GEN, RFLX CONF (test NON-REACTIVE code = 3514) VITAMIN D, 25 [id number] 00:00:00 Test Item Value Reference Range Interpretation Comments VITAMIN D, 25 OH (test code = 4958) 27 NG/ML VITAMIN D, 25 [id number] 00:00:00 Test Item Value Reference Range Interpretation Comments VITAMIN D, 25 OH (test code = 4958) 27 NG/ML TSH, THIRD [id number] 00:19:50 Test Item Value Reference Range Interpretation Comments TSH, THIRD GENERATION (test code 1.090 UIU/ML 0.400-4.100 = 2821) [id number] 00:00:00 Test Item Value Reference Range Interpretation Comments TSH, THIRD GENERATION (test code 1.090 UIU/ML = 2821) [id number] 00:00:00 Test Item Value Reference Range Interpretation Comments TSH, THIRD GENERATION (test code 1.090 UIU/ML = 2821) [id number] 00:00:00 Test Item Value Reference Range Interpretation Comments TSH, THIRD GENERATION (test code 1.090 UIU/ML = 2821) [id number] 00:00:00 Test Item Value Reference Range Interpretation Comments TSH, THIRD GENERATION (test code 1.090 UIU/ML = 2821) [id number] 00:00:00 Test Item Value Reference Range Interpretation Comments TSH, THIRD GENERATION (test code 1.090 UIU/ML = 2821) [id number] 00:00:00 Test Item Value Reference Range Interpretation Comments TSH, THIRD GENERATION (test code 1.090 UIU/ML = 2821) [id number] 00:00:00 Test Item Value Reference Range Interpretation Comments TSH, THIRD GENERATION (test code 1.090 UIU/ML = 2821) [id number] 00:00:00 Test Item Value Reference Range Interpretation Comments TSH, THIRD GENERATION (test code 1.090 UIU/ML = 2821) [id number] 00:00:00 Test Item Value Reference Range Interpretation Comments TSH, THIRD GENERATION (test code 1.090 UIU/ML = 2821) LIPID [id number] 23:59:41 Test Item Value Reference Range Interpretation [...] MOREINFORMATION , SEE CLIENT ANNOUNCE MENT AT [email or web address] RATIO LDL/HDL 1.79 RATIO <3.22 (test code = 2238) COMPREHENSIVE METABOLIC [id number] 23:59:41 Test Item Value Reference Range Interpretation Comments GLUCOSE (test code = 77 MG/DL 70-99 2216) BUN (test code = 8 MG/DL 6-20 2207) CREATININE (test 0.67 MG/DL 0.60-1.30 EFFECTIVE code = 2214) 08/12/2021, [facility] HAS IMPLEMENTED THE NKF-ASN RECOMME NDED KD-EPI EGF R REFIT CALCULATI ON THAT DOES NOT INCLUDE A COEFFICIENT FOR RACE. FOR MORE INFORMATION, SE E ANNOUNCEMENT [email or web address] eGFR (2020 CKD-EPI) 122 >60 (test code = 02103) ML/MIN/1.73 CALC BUN/CREAT (test 12 RATIO 6-28 code = 2235) SODIUM (test code = 141 MEQ/L 365-288 5252) POTASSIUM (test code 4.0 MEQ/L 3.5-5.4 = 222) CHLORIDE (test code 102 MEQ/L 95-107 = [...] = 92 U/L 5-40 H 2218) HEMOGLOBIN [id number] 03:14:31 Test Item Value Reference Range Interpretation Comments HEMOGLOBIN A1c (test code = 80763) 6.0 % 4.2-5.6 H CBC W/AUTO DIFF WITH [id number] 03:06:02 Test Item Value Reference Range Interpretation [...] RBCS 0.00 K/UL 0.00-0.11 (test code = 96204) CBC W/AUTO [id number] 00:00:00 Test Item Value Reference Range Interpretation [...] NUCLEATED RBCS (test code = 0.00 K/UL 80386) CBC W/AUTO [id number] 00:00:00 Test Item Value Reference Range Interpretation [...] NUCLEATED RBCS (test code = 0.00 K/UL 58904) CBC W/AUTO [id number] 00:00:00 Test Item Value Reference Range Interpretation [...] NUCLEATED RBCS (test code = 0.00 K/UL 86149) HEMOGLOBIN [id number] 00:00:00 Test Item Value Reference Range Interpretation Comments HEMOGLOBIN A1c (test code = 58756) 6.0 % HEMOGLOBIN [id number] 00:00:00 Test Item Value Reference Range Interpretation Comments HEMOGLOBIN A1c (test code = 08477) 6.0 % HEMOGLOBIN [id number] 00:00:00 Test Item Value Reference Range Interpretation Comments HEMOGLOBIN A1c (test code = 43200) 6.0 % LIPID [id number] 00:00:00 Test Item Value Reference Range Interpretation Comments CHOLESTEROL (test code = 2210) 124 MG/DL TRIGLYCERIDES (test code = 2232) 69 MG/DL HDL CHOLESTEROL (test code = 2220) 39 MG/DL CALC LDL CHOL (test code = 2237) 70 MG/DL RISK RATIO LDL/HDL (test code = 1.79 RATIO 2238) LIPID [id number] 00:00:00 Test Item Value Reference Range Interpretation Comments CHOLESTEROL (test code = 2210) 124 MG/DL TRIGLYCERIDES (test code = 2232) 69 MG/DL HDL CHOLESTEROL (test code = 2220) 39 MG/DL CALC LDL CHOL (test code = 2237) 70 MG/DL RISK RATIO LDL/HDL (test code = 1.79 RATIO 2238) COMPREHENSIVE METABOLIC [id number] 00:00:00 Test Item Value Reference Range Interpretation Comments GLUCOSE (test code = 2217) 77 MG/DL BUN (test code = 2208) 8 MG/DL CREATININE (test code = 2214) 0.67 MG/DL eGFR (2020 CKD-EPI) (test 122 ML/MIN/1.73 code = 23198) CALC BUN/CREAT (test code = 12 RATIO [...] code = 2219) 92 U/L COMPREHENSIVE METABOLIC [id number] 00:00:00 Test Item Value Reference Range Interpretation Comments GLUCOSE (test code = 2217) 77 MG/DL BUN (test code = 2208) 8 MG/DL CREATININE (test code = 2214) 0.67 MG/DL eGFR (2020 CKD-EPI) (test 122 ML/MIN/1.73 code = 60025) CALC BUN/CREAT (test code = 12 RATIO 223) SODIUM (test code = 2231) 141 MEQ/L [...] code = 2219) 92 U/L CBC W/AUTO [id number] 00:00:00 Test Item Value Reference Range Interpretation [...] NUCLEATED RBCS (test code = 0.00 K/UL 60675) CBC W/AUTO [id number] 00:00:00 Test Item Value Reference Range Interpretation [...] NUCLEATED RBCS (test code = 0.00 K/UL 68869) CBC W/AUTO [id number] 00:00:00 Test Item Value Reference Range Interpretation [...] NUCLEATED RBCS (test code = 0.00 K/UL 81749) CBC W/AUTO [id number] 00:00:00 Test Item Value Reference Range Interpretation [...] NUCLEATED RBCS (test code = 0.00 K/UL 34383) HEMOGLOBIN [id number] 00:00:00 Test Item Value Reference Range Interpretation Comments HEMOGLOBIN A1c (test code = 39627) 6.0 % HEMOGLOBIN [id number] 00:00:00 Test Item Value Reference Range Interpretation Comments HEMOGLOBIN A1c (test code = 83190) 6.0 % HEMOGLOBIN [id number] 00:00:00 Test Item Value Reference Range Interpretation Comments HEMOGLOBIN A1c (test code = 85852) 6.0 % LIPID [id number] 00:00:00 Test Item Value Reference Range Interpretation Comments CHOLESTEROL (test code = 2210) 124 MG/DL TRIGLYCERIDES (test code = 2232) 69 MG/DL HDL CHOLESTEROL (test code = 2220) 39 MG/DL CALC LDL CHOL (test code = 2237) 70 MG/DL RISK RATIO LDL/HDL (test code = 1.79 RATIO 2238) LIPID [id number] 00:00:00 Test Item Value Reference Range Interpretation Comments CHOLESTEROL (test code = 2210) 124 MG/DL TRIGLYCERIDES (test code = 2232) 69 MG/DL HDL CHOLESTEROL (test code = 2220) 39 MG/DL CALC LDL CHOL (test code = 2237) 70 MG/DL RISK RATIO LDL/HDL (test code = 1.79 RATIO 2238) COMPREHENSIVE METABOLIC [id number] 00:00:00 Test Item Value Reference Range Interpretation Comments GLUCOSE (test code = 2217) 77 MG/DL BUN (test code = 2208) 8 MG/DL CREATININE (test code = 2214) 0.67 MG/DL eGFR (2020 CKD-EPI) (test 122 ML/MIN/1.73 code = 01468) CALC BUN/CREAT (test code = 12 RATIO [...] code = 2219) 92 U/L COMPREHENSIVE METABOLIC [id number] 00:00:00 Test Item Value Reference Range Interpretation Comments GLUCOSE (test code = 2217) 77 MG/DL BUN (test code = 2208) 8 MG/DL CREATININE (test code = 2214) 0.67 MG/DL eGFR (2020 CKD-EPI) (test 122 ML/MIN/1.73 code = 15258) CALC BUN/CREAT (test code = 12 RATIO 2234) SODIUM (test code = 2231) 141 MEQ/L [...] code = 2219) 92 U/L CBC W/AUTO [id number] 00:00:00 Test Item Value Reference Range Interpretation [...] NUCLEATED RBCS (test code = 0.00 K/UL 58550) CBC W/AUTO [id number] 00:00:00 Test Item Value Reference Range Interpretation [...] NUCLEATED RBCS (test code = 0.00 K/UL 45592) HEMOGLOBIN [id number] 00:00:00 Test Item Value Reference Range Interpretation Comments HEMOGLOBIN A1c (test code = 68701) 6.0 % HEMOGLOBIN [id number] 00:00:00 Test Item Value Reference Range Interpretation Comments HEMOGLOBIN A1c (test code = 09302) 6.0 % HEMOGLOBIN [id number] 00:00:00 Test Item Value Reference Range Interpretation Comments HEMOGLOBIN A1c (test code = 77584) 6.0 % LIPID [id number] 00:00:00 Test Item Value Reference Range Interpretation Comments CHOLESTEROL (test code = 2210) 124 MG/DL TRIGLYCERIDES (test code = 2232) 69 MG/DL HDL CHOLESTEROL (test code = 2220) 39 MG/DL CALC LDL CHOL (test code = 2237) 70 MG/DL RISK RATIO LDL/HDL (test code = 1.79 RATIO 2238) LIPID [id number] 00:00:00 Test Item Value Reference Range Interpretation Comments CHOLESTEROL (test code = 2210) 124 MG/DL TRIGLYCERIDES (test code = 2232) 69 MG/DL HDL CHOLESTEROL (test code = 2220) 39 MG/DL CALC LDL CHOL (test code = 2237) 70 MG/DL RISK RATIO LDL/HDL (test code = 1.79 RATIO 2238) COMPREHENSIVE METABOLIC [id number] 00:00:00 Test Item Value Reference Range Interpretation Comments GLUCOSE (test code = 2217) 77 MG/DL BUN (test code = 2208) 8 MG/DL CREATININE (test code = 2214) 0.67 MG/DL eGFR (2020 CKD-EPI) (test 122 ML/MIN/1.73 code = 36077) CALC BUN/CREAT (test code = 12 RATIO [...] code = 2219) 92 U/L COMPREHENSIVE METABOLIC [id number] 00:00:00 Test Item Value Reference Range Interpretation Comments GLUCOSE (test code = 2217) 77 MG/DL BUN (test code = 2208) 8 MG/DL CREATININE (test code = 2214) 0.67 MG/DL eGFR (2020 CKD-EPI) (test 122 ML/MIN/1.73 code = 08275) CALC BUN/CREAT (test code = 12 RATIO [...] 2219) 92 U/L MR KNEE LEFT WO [id number] 21:23:01 Stable MRI with lateral patellar subluxation [...] reviewed this study and agree with the abovereport.[facility] 2020-03-16 13:46:56 Large [...] thePA view. No fracture is appreciated.IMPRESSIONLarge effusion.No fracture.[facility], [id number] 00:00:00 Test Item Value Reference Range Interpretation Comments HCG, QUANTITATIVE (test code = <5 MIU/ML 2506) HCG, [id number] 00:00:00 Test Item Value Reference Range Interpretation Comments HCG, QUANTITATIVE (test code = <5 MIU/ML 2506) HCG, [id number] 00:00:00 Test Item Value Reference Range Interpretation Comments HCG, QUANTITATIVE (test code = <5 MIU/ML 2506) HCG, [id number] 00:00:00 Test Item Value Reference Range Interpretation Comments HCG, QUANTITATIVE (test code = <5 MIU/ML 2506) HCG, [id number] 00:00:00 Test Item Value Reference Range Interpretation Comments HCG, QUANTITATIVE (test code = <5 MIU/ML 2506) HCG, [id number] 00:00:00 Test Item Value Reference Range Interpretation Comments HCG, QUANTITATIVE (test code = <5 MIU/ML 2506) HCG, [id number] 00:00:00 Test Item Value Reference Range Interpretation Comments HCG, QUANTITATIVE (test code = <5 MIU/ML 2506) HCG, [id number] 00:00:00 Test Item Value Reference Range Interpretation Comments HCG, QUANTITATIVE (test code = <5 MIU/ML 2506) HCG, [id number] 00:00:00 Test Item Value Reference Range Interpretation Comments HCG, QUANTITATIVE (test code = <5 MIU/ML 2506) HCG, [id number] 00:00:00 Test Item Value Reference Range Interpretation Comments HCG, QUANTITATIVE (test TEST NOT PERFORMED code = 2506) MIU/ML HCG, [id number] 00:00:00 Test Item Value Reference Range Interpretation Comments HCG, QUANTITATIVE (test TEST NOT PERFORMED code = 2506) MIU/ML HCG, [id number] 00:00:00 Test Item Value Reference Range Interpretation Comments HCG, QUANTITATIVE (test TEST NOT PERFORMED code = 2506) MIU/ML HCG, [id number] 00:00:00 Test Item Value Reference Range Interpretation Comments HCG, QUANTITATIVE (test TEST NOT PERFORMED code = 2506) MIU/ML HCG, [id number] 00:00:00 Test Item Value Reference Range Interpretation Comments HCG, QUANTITATIVE (test TEST NOT PERFORMED code = 2506) MIU/ML HCG, [id number] 00:00:00 Test Item Value Reference Range Interpretation Comments HCG, QUANTITATIVE (test TEST NOT PERFORMED code = 2506) MIU/ML HCG, [id number] 00:00:00 Test Item Value Reference Range Interpretation Comments HCG, QUANTITATIVE (test TEST NOT PERFORMED code = 2506) MIU/ML HCG, [id number] 00:00:00 Test Item Value Reference Range Interpretation Comments HCG, QUANTITATIVE (test TEST NOT PERFORMED code = 2506) MIU/ML HCG, [id number] 00:00:00 Test Item Value Reference Range Interpretation Comments HCG, QUANTITATIVE (test TEST NOT PERFORMED code = 2506) MIU/ML CHLAMYDIA, AMPLIFIED, [id number] 00:00:00 Test Item Value Reference Range Interpretation Comments CHLAMYDIA, TMA (test code = 39437) NEGATIVE CHLAMYDIA, AMPLIFIED, [id number] 00:00:00 Test Item Value Reference Range Interpretation Comments CHLAMYDIA, TMA (test code = 06051) NEGATIVE GC, AMPLIFIED, [id number] 00:00:00 Test Item Value Reference Range Interpretation Comments GONORRHEA, TMA (test code = 75972) NEGATIVE GC, AMPLIFIED, [id number] 00:00:00 Test Item Value Reference Range Interpretation Comments GONORRHEA, TMA (test code = 46485) NEGATIVE CHLAMYDIA, AMPLIFIED, [id number] 00:00:00 Test Item Value Reference Range Interpretation Comments CHLAMYDIA, TMA (test code = 27463) NEGATIVE CHLAMYDIA, AMPLIFIED, [id number] 00:00:00 Test Item Value Reference Range Interpretation Comments CHLAMYDIA, TMA (test code = 36072) NEGATIVE GC, AMPLIFIED, [id number] 00:00:00 Test Item Value Reference Range Interpretation Comments GONORRHEA, TMA (test code = 56975) NEGATIVE GC, AMPLIFIED, [id number] 00:00:00 Test Item Value Reference Range Interpretation Comments GONORRHEA, TMA (test code = 64746) NEGATIVE CHLAMYDIA, AMPLIFIED, [id number] 00:00:00 Test Item Value Reference Range Interpretation Comments CHLAMYDIA, TMA (test code = 48551) NEGATIVE CHLAMYDIA, AMPLIFIED, [id number] 00:00:00 Test Item Value Reference Range Interpretation Comments CHLAMYDIA, TMA (test code = 72430) NEGATIVE GC, AMPLIFIED, [id number] 00:00:00 Test Item Value Reference Range Interpretation Comments GONORRHEA, TMA (test code = 72512) NEGATIVE GC, AMPLIFIED, [id number] 00:00:00 Test Item Value Reference Range Interpretation Comments GONORRHEA, TMA (test code = 53421) NEGATIVE HIV AB/AG COMBO RFLX [id number] 00:00:00 Test Item Value Reference Range Interpretation Comments HIV 1/2 4TH GEN, RFLX CONF (test NON-REACTIVE code = 3514) HIV AB/AG COMBO RFLX [id number] 00:00:00 Test Item Value Reference Range Interpretation Comments HIV 1/2 4TH GEN, RFLX CONF (test NON-REACTIVE code = 3514) ACUTE HEPATITIS [id number] 00:00:00 Test Item Value Reference Range Interpretation Comments HEPATITIS A IgM (test code = NON-REACTIVE 57308) HEPATITIS B CORE IgM (test code NON-REACTIVE = 4644) HEPATITIS B SURF AG (test code = NON-REACTIVE 2739) HEPATITIS C ANTIBODY (test code NON-REACTIVE = 4675) INTERPRETATION HEPATITIS A: (NOTE) (test code = 2552) INTERPRETATION HEPATITIS B: (NOTE) (test code = 96487) INTERPRETATION HEPATITIS C: (NOTE) (test code = 20061) ACUTE HEPATITIS [id number] 00:00:00 Test Item Value Reference Range Interpretation Comments HEPATITIS A IgM (test code = NON-REACTIVE 00751) HEPATITIS B CORE IgM (test code NON-REACTIVE = 4644) HEPATITIS B SURF AG (test code = NON-REACTIVE 2739) HEPATITIS C ANTIBODY (test code NON-REACTIVE = 4675) INTERPRETATION HEPATITIS A: (NOTE) (test code = 2552) INTERPRETATION HEPATITIS B: (NOTE) (test code = 56332) INTERPRETATION HEPATITIS C: (NOTE) (test code = 34721) [id number] 00:00:00 Test Item Value Reference Range Interpretation Comments RPR RESULT (test code = NON-REACTIVE 3501) RPR TITER (test code = 3500) NOT INDIC. TITER [id number] 00:00:00 Test Item Value Reference Range Interpretation Comments RPR RESULT (test code = NON-REACTIVE 3501) RPR TITER (test code = 3500) NOT INDIC. TITER [id number] 00:00:00 Test Item Value Reference Range Interpretation Comments RPR RESULT (test code = NON-REACTIVE 3501) RPR TITER (test code = 3500) NOT INDIC. TITER HIV AB/AG COMBO RFLX [id number] 00:00:00 Test Item Value Reference Range Interpretation Comments HIV 1/2 4TH GEN, RFLX CONF (test NON-REACTIVE code = 3514) HIV AB/AG COMBO RFLX [id number] 00:00:00 Test Item Value Reference Range Interpretation Comments HIV 1/2 4TH GEN, RFLX CONF (test NON-REACTIVE code = 3514) HIV AB/AG COMBO RFLX [id number] 00:00:00 Test Item Value Reference Range Interpretation Comments HIV 1/2 4TH GEN, RFLX CONF (test NON-REACTIVE code = 3514) ACUTE HEPATITIS [id number] 00:00:00 Test Item Value Reference Range Interpretation Comments HEPATITIS A IgM (test code = NON-REACTIVE 25198) HEPATITIS B CORE IgM (test code NON-REACTIVE = 4644) HEPATITIS B SURF AG (test code = NON-REACTIVE 2739) HEPATITIS C ANTIBODY (test code NON-REACTIVE = 4675) INTERPRETATION HEPATITIS A: (NOTE) (test code = 2552) INTERPRETATION HEPATITIS B: (NOTE) (test code = 61428) INTERPRETATION HEPATITIS C: (NOTE) (test code = 70604) ACUTE HEPATITIS [id number] 00:00:00 Test Item Value Reference Range Interpretation Comments HEPATITIS A IgM (test code = NON-REACTIVE 37943) HEPATITIS B CORE IgM (test code NON-REACTIVE = 4644) HEPATITIS B SURF AG (test code = NON-REACTIVE 2739) HEPATITIS C ANTIBODY (test code NON-REACTIVE = 4675) INTERPRETATION HEPATITIS A: (NOTE) (test code = 2552) INTERPRETATION HEPATITIS B: (NOTE) (test code = 24940) INTERPRETATION HEPATITIS C: (NOTE) (test code = 41132) [id number] 00:00:00 Test Item Value Reference Range Interpretation Comments RPR RESULT (test code = NON-REACTIVE 3501) RPR TITER (test code = 3500) NOT INDIC. TITER [id number] 00:00:00 Test Item Value Reference Range Interpretation Comments RPR RESULT (test code = NON-REACTIVE 3501) RPR TITER (test code = 3500) NOT INDIC. TITER [id number] 00:00:00 Test Item Value Reference Range Interpretation Comments RPR RESULT (test code = NON-REACTIVE 3501) RPR TITER (test code = 3500) NOT INDIC. TITER HIV AB/AG COMBO RFLX [id number] 00:00:00 Test Item Value Reference Range Interpretation Comments HIV 1/2 4TH GEN, RFLX CONF (test NON-REACTIVE code = 3514) ACUTE HEPATITIS [id number] 00:00:00 Test Item Value Reference Range Interpretation Comments HEPATITIS A IgM (test code = NON-REACTIVE 71963) HEPATITIS B CORE IgM (test code NON-REACTIVE = 4644) HEPATITIS B SURF AG (test code = NON-REACTIVE 2739) HEPATITIS C ANTIBODY (test code NON-REACTIVE = 4675) INTERPRETATION HEPATITIS A: (NOTE) (test code = 2552) INTERPRETATION HEPATITIS B: (NOTE) (test code = 49782) INTERPRETATION HEPATITIS C: (NOTE) (test code = 09346) ACUTE HEPATITIS [id number] 00:00:00 Test Item Value Reference Range Interpretation Comments HEPATITIS A IgM (test code = NON-REACTIVE 60528) HEPATITIS B CORE IgM (test code NON-REACTIVE = 4644) HEPATITIS B SURF AG (test code = NON-REACTIVE 2739) HEPATITIS C ANTIBODY (test code NON-REACTIVE = 4675) INTERPRETATION HEPATITIS A: (NOTE) (test code = 2552) INTERPRETATION HEPATITIS B: (NOTE) (test code = 96078) INTERPRETATION HEPATITIS C: (NOTE) (test code = 19002) [id number] 00:00:00 Test Item Value Reference Range Interpretation Comments RPR RESULT (test code = NON-REACTIVE 3501) RPR TITER (test code = 3500) NOT INDIC. TITER [id number] 00:00:00 Test Item Value Reference Range Interpretation Comments RPR RESULT (test code = NON-REACTIVE 3501) RPR TITER (test code = 3500) NOT INDIC. TITER [id number] 00:00:00 Test Item Value Reference Range Interpretation Comments RPR RESULT (test code = NON-REACTIVE 3501) RPR TITER (test code = 3500) NOT INDIC. TITER HIV AB/AG COMBO RFLX [id number] 00:00:00 Test Item Value Reference Range Interpretation Comments HIV 1/2 4TH GEN, RFLX CONF (test NON-REACTIVE code = 3514) HIV AB/AG COMBO RFLX [id number] 00:00:00 Test Item Value Reference Range Interpretation Comments HIV 1/2 4TH GEN, RFLX CONF (test NON-REACTIVE code = 3514) ACUTE HEPATITIS [id number] 00:00:00 Test Item Value Reference Range Interpretation Comments HEPATITIS A IgM (test code = NON-REACTIVE 92326) HEPATITIS B CORE IgM (test code NON-REACTIVE = 4644) HEPATITIS B SURF AG (test code = NON-REACTIVE 2739) HEPATITIS C ANTIBODY (test code NON-REACTIVE = 4675) HCV INDEX (test code = 77104) 0.13 INTERPRETATION HEPATITIS A: (NOTE) (test code = 2552) INTERPRETATION HEPATITIS B: (NOTE) (test code = 24727) INTERPRETATION HEPATITIS C: (NOTE) (test code = 98723) ACUTE HEPATITIS [id number] 00:00:00 Test Item Value Reference Range Interpretation Comments HEPATITIS A IgM (test code = NON-REACTIVE 25262) HEPATITIS B CORE IgM (test code NON-REACTIVE = 4644) HEPATITIS B SURF AG (test code = NON-REACTIVE 2739) HEPATITIS C ANTIBODY (test code NON-REACTIVE = 4675) HCV INDEX (test code = 53486) 0.13 INTERPRETATION HEPATITIS A: (NOTE) (test code = 2552) INTERPRETATION HEPATITIS B: (NOTE) (test code = 04796) INTERPRETATION HEPATITIS C: (NOTE) (test code = 25760) GC AND CHLAMYDIA, AMPLIFIED, [id number] 00:00:00 Test Item Value Reference Range Interpretation Comments GONORRHEA, TMA (test code = 78174) NEGATIVE CHLAMYDIA, TMA (test code = 82317) NEGATIVE GC AND CHLAMYDIA, AMPLIFIED, [id number] 00:00:00 Test Item Value Reference Range Interpretation Comments GONORRHEA, TMA (test code = 19969) NEGATIVE CHLAMYDIA, TMA (test code = 19871) NEGATIVE [id number] 00:00:00 Test Item Value Reference Range Interpretation Comments RPR RESULT (test code = NON-REACTIVE 3501) RPR TITER (test code = 3500) NOT INDIC. TITER [id number] 00:00:00 Test Item Value Reference Range Interpretation Comments RPR RESULT (test code = NON-REACTIVE 3501) RPR TITER (test code = 3500) NOT INDIC. TITER [id number] 00:00:00 Test Item Value Reference Range Interpretation Comments RPR RESULT (test code = NON-REACTIVE 3501) RPR TITER (test code = 3500) NOT INDIC. TITER HIV AB/AG COMBO RFLX [id number] 00:00:00 Test Item Value Reference Range Interpretation Comments HIV 1/2 4TH GEN, RFLX CONF (test NON-REACTIVE code = 3514) HIV AB/AG COMBO RFLX [id number] 00:00:00 Test Item Value Reference Range Interpretation Comments HIV 1/2 4TH GEN, RFLX CONF (test NON-REACTIVE code = 3514) HIV AB/AG COMBO RFLX [id number] 00:00:00 Test Item Value Reference Range Interpretation Comments HIV 1/2 4TH GEN, RFLX CONF (test NON-REACTIVE code = 3514) ACUTE HEPATITIS [id number] 00:00:00 Test Item Value Reference Range Interpretation Comments HEPATITIS A IgM (test code = NON-REACTIVE 44946) HEPATITIS B CORE IgM (test code NON-REACTIVE = 4644) HEPATITIS B SURF AG (test code = NON-REACTIVE 2739) HEPATITIS C ANTIBODY (test code NON-REACTIVE = 4675) HCV INDEX (test code = 06786) 0.13 INTERPRETATION HEPATITIS A: (NOTE) (test code = 2552) INTERPRETATION HEPATITIS B: (NOTE) (test code = 54349) INTERPRETATION HEPATITIS C: (NOTE) (test code = 24897) ACUTE HEPATITIS [id number] 00:00:00 Test Item Value Reference Range Interpretation Comments HEPATITIS A IgM (test code = NON-REACTIVE 15682) HEPATITIS B CORE IgM (test code NON-REACTIVE = 4644) HEPATITIS B SURF AG (test code = NON-REACTIVE 2739) HEPATITIS C ANTIBODY (test code NON-REACTIVE = 4675) HCV INDEX (test code = 54033) 0.13 INTERPRETATION HEPATITIS A: (NOTE) (test code = 2552) INTERPRETATION HEPATITIS B: (NOTE) (test code = 67902) INTERPRETATION HEPATITIS C: (NOTE) (test code = 45400) HIV AB/AG COMBO RFLX [id number] 00:00:00 Test Item Value Reference Range Interpretation Comments HIV 1/2 4TH GEN, RFLX CONF (test NON-REACTIVE code = 3514) GC AND CHLAMYDIA, AMPLIFIED, [id number] 00:00:00 Test Item Value Reference Range Interpretation Comments GONORRHEA, TMA (test code = 64191) NEGATIVE CHLAMYDIA, TMA (test code = 61402) NEGATIVE GC AND CHLAMYDIA, AMPLIFIED, [id number] 00:00:00 Test Item Value Reference Range Interpretation Comments GONORRHEA, TMA (test code = 54711) NEGATIVE CHLAMYDIA, TMA (test code = 50158) NEGATIVE [id number] 00:00:00 Test Item Value Reference Range Interpretation Comments RPR RESULT (test code = NON-REACTIVE 3501) RPR TITER (test code = 3500) NOT INDIC. TITER [id number] 00:00:00 Test Item Value Reference Range Interpretation Comments RPR RESULT (test code = NON-REACTIVE 3501) RPR TITER (test code = 3500) NOT INDIC. TITER [id number] 00:00:00 Test Item Value Reference Range Interpretation Comments RPR RESULT (test code = NON-REACTIVE 3501) RPR TITER (test code = 3500) NOT INDIC. TITER ACUTE HEPATITIS [id number] 00:00:00 Test Item Value Reference Range Interpretation Comments HEPATITIS A IgM (test code = NON-REACTIVE 37481) HEPATITIS B CORE IgM (test code NON-REACTIVE = 4644) HEPATITIS B SURF AG (test code = NON-REACTIVE 2739) HEPATITIS C ANTIBODY (test code NON-REACTIVE = 4675) HCV INDEX (test code = 40110) 0.13 INTERPRETATION HEPATITIS A: (NOTE) (test code = 2552) INTERPRETATION HEPATITIS B: (NOTE) (test code = 12860) INTERPRETATION HEPATITIS C: (NOTE) (test code = 79332) ACUTE HEPATITIS [id number] 00:00:00 Test Item Value Reference Range Interpretation Comments HEPATITIS A IgM (test code = NON-REACTIVE 37838) HEPATITIS B CORE IgM (test code NON-REACTIVE = 4644) HEPATITIS B SURF AG (test code = NON-REACTIVE 2739) HEPATITIS C ANTIBODY (test code NON-REACTIVE = 4675) HCV INDEX (test code = 93729) 0.13 INTERPRETATION HEPATITIS A: (NOTE) (test code = 2552) INTERPRETATION HEPATITIS B: (NOTE) (test code = 86061) INTERPRETATION HEPATITIS C: (NOTE) (test code = 44198) GC AND CHLAMYDIA, AMPLIFIED, [id number] 00:00:00 Test Item Value Reference Range Interpretation Comments GONORRHEA, TMA (test code = 59857) NEGATIVE CHLAMYDIA, TMA (test code = 78080) NEGATIVE GC AND CHLAMYDIA, AMPLIFIED, [id number] 00:00:00 Test Item Value Reference Range Interpretation Comments GONORRHEA, TMA (test code = 49710) NEGATIVE CHLAMYDIA, TMA (test code = 91082) NEGATIVE [id number] 00:00:00 Test Item Value Reference Range Interpretation Comments RPR RESULT (test code = NON-REACTIVE 3501) RPR TITER (test code = 3500) NOT INDIC. TITER [id number] 00:00:00 Test Item Value Reference Range Interpretation Comments RPR RESULT (test code = NON-REACTIVE 3501) RPR TITER (test code = 3500) NOT INDIC. TITER [id number] 00:00:00 Test Item Value Reference Range Interpretation Comments RPR RESULT (test code = NON-REACTIVE 3501) RPR TITER (test code = 3500) NOT INDIC. TITER [id number] 00:00:00 Test Item Value Reference Range Interpretation Comments RPR RESULT (test code = NON-REACTIVE 3501) RPR TITER (test code = 3500) NOT INDIC. TITER [id number] 00:00:00 Test Item Value Reference Range Interpretation Comments RPR RESULT (test code = NON-REACTIVE 3501) RPR TITER (test code = 3500) NOT INDIC. TITER [id number] 00:00:00 Test Item Value Reference Range Interpretation Comments RPR RESULT (test code = NON-REACTIVE 3501) RPR TITER (test code = 3500) NOT INDIC. TITER HIV AB/AG COMBO RFLX [id number] 00:00:00 Test Item Value Reference Range Interpretation Comments HIV 1/2 4TH GEN, RFLX CONF (test NON-REACTIVE code = 3514) HIV AB/AG COMBO RFLX [id number] 00:00:00 Test Item Value Reference Range Interpretation Comments HIV 1/2 4TH GEN, RFLX CONF (test NON-REACTIVE code = 3514) [id number] 00:00:00 Test Item Value Reference Range Interpretation Comments RPR RESULT (test code = NON-REACTIVE 3501) RPR TITER (test code = 3500) NOT INDIC. TITER [id number] 00:00:00 Test Item Value Reference Range Interpretation Comments RPR RESULT (test code = NON-REACTIVE 3501) RPR TITER (test code = 3500) NOT INDIC. TITER [id number] 00:00:00 Test Item Value Reference Range Interpretation Comments RPR RESULT (test code = NON-REACTIVE 3501) RPR TITER (test code = 3500) NOT INDIC. TITER [id number] 00:00:00 Test Item Value Reference Range Interpretation Comments RPR RESULT (test code = NON-REACTIVE 3501) RPR TITER (test code = 3500) NOT INDIC. TITER HIV AB/AG COMBO RFLX [id number] 00:00:00 Test Item Value Reference Range Interpretation Comments HIV 1/2 4TH GEN, RFLX CONF (test NON-REACTIVE code = 3514) HIV AB/AG COMBO RFLX [id number] 00:00:00 Test Item Value Reference Range Interpretation Comments HIV 1/2 4TH GEN, RFLX CONF (test NON-REACTIVE code = 3514) [id number] 00:00:00 Test Item Value Reference Range Interpretation Comments RPR RESULT (test code = NON-REACTIVE 3501) RPR TITER (test code = 3500) NOT INDIC. TITER [id number] 00:00:00 Test Item Value Reference Range Interpretation Comments RPR RESULT (test code = NON-REACTIVE 3501) RPR TITER (test code = 3500) NOT INDIC. TITER HIV AB/AG COMBO RFLX [id number] 00:00:00 Test Item Value Reference Range Interpretation Comments HIV 1/2 4TH GEN, RFLX CONF (test NON-REACTIVE code = 3514) HIV AB/AG COMBO RFLX [id number] 00:00:00 Test Item Value Reference Range Interpretation Comments HIV 1/2 4TH GEN, RFLX CONF (test NON-REACTIVE code = 3514) GC AND CHLAMYDIA, AMPLIFIED, [id number] 00:00:00 Test Item Value Reference Range Interpretation Comments GONORRHEA, TMA (test code = 77513) NEGATIVE CHLAMYDIA, TMA (test code = 28447) NEGATIVE GC AND CHLAMYDIA, AMPLIFIED, [id number] 00:00:00 Test Item Value Reference Range Interpretation Comments GONORRHEA, TMA (test code = 28712) NEGATIVE CHLAMYDIA, TMA (test code = 42779) NEGATIVE GC AND CHLAMYDIA, AMPLIFIED, [id number] 00:00:00 Test Item Value Reference Range Interpretation Comments GONORRHEA, TMA (test code = 73017) NEGATIVE CHLAMYDIA, TMA (test code = 69261) NEGATIVE GC AND CHLAMYDIA, AMPLIFIED, [id number] 00:00:00 Test Item Value Reference Range Interpretation Comments GONORRHEA, TMA (test code = 02604) NEGATIVE CHLAMYDIA, TMA (test code = 91626) NEGATIVE GC AND CHLAMYDIA, AMPLIFIED, [id number] 00:00:00 Test Item Value Reference Range Interpretation Comments GONORRHEA, TMA (test code = 78128) NEGATIVE CHLAMYDIA, TMA (test code = 18515) NEGATIVE GC AND CHLAMYDIA, AMPLIFIED, [id number] 00:00:00 Test Item Value Reference Range Interpretation Comments GONORRHEA, TMA (test code = 22861) NEGATIVE CHLAMYDIA, TMA (test code = 13081) NEGATIVE COMPREHENSIVE METABOLIC [id number] 00:00:00 Test Item Value Reference Range Interpretation Comments GLUCOSE (test code = 2217) 127 MG/DL BUN (test code = 2208) 5 MG/DL CREATININE (test code = 2214) 0.58 MG/DL eGFR AMER. (test code 148 ML/MIN/1.73 = 24537) eGFR NON- AMER. (test 128 ML/MIN/1.73 code = 68166) CALC BUN/CREAT (test code = 9 RATIO [...] code = 2219) 18 U/L COMPREHENSIVE METABOLIC [id number] 00:00:00 Test Item Value Reference Range Interpretation Comments GLUCOSE (test code = 2217) 127 MG/DL BUN (test code = 2208) 5 MG/DL CREATININE (test code = 2214) 0.58 MG/DL eGFR AMER. (test code 148 ML/MIN/1.73 = 58823) eGFR NON- AMER. (test 128 ML/MIN/1.73 code = 35849) CALC BUN/CREAT (test code = 9 RATIO [...] (test code = 2219) 18 U/L LIPID [id number] 00:00:00 Test Item Value Reference Range Interpretation Comments CHOLESTEROL (test code = 2210) 186 MG/DL TRIGLYCERIDES (test code = 2232) 106 MG/DL HDL CHOLESTEROL (test code = 2220) 54 MG/DL CALC LDL CHOL (test code = 2237) 111 MG/DL RISK RATIO LDL/HDL (test code = 2.05 RATIO 2238) LIPID [id number] 00:00:00 Test Item Value Reference Range Interpretation Comments CHOLESTEROL (test code = 2210) 186 MG/DL TRIGLYCERIDES (test code = 2232) 106 MG/DL HDL CHOLESTEROL (test code = 2220) 54 MG/DL CALC LDL CHOL (test code = 2237) 111 MG/DL RISK RATIO LDL/HDL (test code = 2.05 RATIO 2238) COMPREHENSIVE METABOLIC [id number] 00:00:00 Test Item Value Reference Range Interpretation Comments GLUCOSE (test code = 2217) 127 MG/DL BUN (test code = 2208) 5 MG/DL CREATININE (test code = 2214) 0.58 MG/DL eGFR AMER. (test code 148 ML/MIN/1.73 = 16258) eGFR NON- AMER. (test 128 ML/MIN/1.73 code = 20545) CALC BUN/CREAT (test code = 9 RATIO [...] code = 2219) 18 U/L COMPREHENSIVE METABOLIC [id number] 00:00:00 Test Item Value Reference Range Interpretation Comments GLUCOSE (test code = 2217) 127 MG/DL BUN (test code = 2208) 5 MG/DL CREATININE (test code = 2214) 0.58 MG/DL eGFR AMER. (test code 148 ML/MIN/1.73 = 41777) eGFR NON- AMER. (test 128 ML/MIN/1.73 code = 82912) CALC BUN/CREAT (test code = 9 RATIO 2235) SODIUM (test code = 2231) 139 MEQ/L POTASSIUM (test code = 2228) 3.7 MEQ/L CHLORIDE (test code = 2215) 99 MEQ/L CARBON DIOXIDE (test code = 24 MEQ/L 2205) CALCIUM (test code = 2209) 9.9 MG/DL PROTEIN, TOTAL (test code = 8.1 G/DL 2229) ALBUMIN (test code = 2201) 4.3 G/DL CALC GLOBULIN (test code = 3.8 G/DL 2240) CALC A/G RATIO (test code = 1.1 RATIO 2234) BILIRUBIN, TOTAL (test code = 0.4 MG/DL 2207) ALKALINE PHOSPHATASE (test 83 U/L code = 2204) AST (test code = 2218) 21 U/L ALT (test code = 2219) 18 U/L COMPREHENSIVE METABOLIC [id number] 00:00:00 Test Item Value Reference Range Interpretation Comments GLUCOSE (test code = 2217) 127 MG/DL BUN (test code = 2208) 5 MG/DL CREATININE (test code = 2214) 0.58 MG/DL eGFR AMER. (test code 148 ML/MIN/1.73 = 65029) eGFR NON- AMER. (test 128 ML/MIN/1.73 code = 70667) CALC BUN/CREAT (test code = 9 RATIO [...] (test code = 2219) 18 U/L LIPID [id number] 00:00:00 Test Item Value Reference Range Interpretation Comments CHOLESTEROL (test code = 2210) 186 MG/DL TRIGLYCERIDES (test code = 2232) 106 MG/DL HDL CHOLESTEROL (test code = 2220) 54 MG/DL CALC LDL CHOL (test code = 2237) 111 MG/DL RISK RATIO LDL/HDL (test code = 2.05 RATIO 2238) LIPID [id number] 00:00:00 Test Item Value Reference Range Interpretation Comments CHOLESTEROL (test code = 2210) 186 MG/DL TRIGLYCERIDES (test code = 2232) 106 MG/DL HDL CHOLESTEROL (test code = 2220) 54 MG/DL CALC LDL CHOL (test code = 2237) 111 MG/DL RISK RATIO LDL/HDL (test code = 2.05 RATIO 2238) COMPREHENSIVE METABOLIC [id number] 00:00:00 Test Item Value Reference Range Interpretation Comments GLUCOSE (test code = 2217) 127 MG/DL BUN (test code = 2208) 5 MG/DL CREATININE (test code = 2214) 0.58 MG/DL eGFR AMER. (test code 148 ML/MIN/1.73 = 16439) eGFR NON- AMER. (test 128 ML/MIN/1.73 code = 15278) CALC BUN/CREAT (test code = 9 RATIO [...] (test code = 2219) 18 U/L LIPID [id number] 00:00:00 Test Item Value Reference Range Interpretation Comments CHOLESTEROL (test code = 2210) 186 MG/DL TRIGLYCERIDES (test code = 2232) 106 MG/DL HDL CHOLESTEROL (test code = 2220) 54 MG/DL CALC LDL CHOL (test code = 2237) 111 MG/DL RISK RATIO LDL/HDL (test code = 2.05 RATIO 2238) LIPID [id number] 00:00:00 Test Item Value Reference Range Interpretation Comments CHOLESTEROL (test code = 2210) 186 MG/DL TRIGLYCERIDES (test code = 2232) 106 MG/DL HDL CHOLESTEROL (test code = 2220) 54 MG/DL CALC LDL CHOL (test code = 2237) 111 MG/DL RISK RATIO LDL/HDL (test code = 2.05 RATIO 2238) GC AND CHLAMYDIA, AMPLIFIED, [id number] 00:00:00 Test Item Value Reference Range Interpretation Comments GONORRHEA, TMA (test code = 61883) NEGATIVE CHLAMYDIA, TMA (test code = 96697) NEGATIVE GC AND CHLAMYDIA, AMPLIFIED, [id number] 00:00:00 Test Item Value Reference Range Interpretation Comments GONORRHEA, TMA (test code = 40019) NEGATIVE CHLAMYDIA, TMA (test code = 99798) NEGATIVE GC AND CHLAMYDIA, AMPLIFIED, [id number] 00:00:00 Test Item Value Reference Range Interpretation Comments GONORRHEA, TMA (test code = 12627) NEGATIVE CHLAMYDIA, TMA (test code = 62795) NEGATIVE GC AND CHLAMYDIA, AMPLIFIED, [id number] 00:00:00 Test Item Value Reference Range Interpretation Comments GONORRHEA, TMA (test code = 86208) NEGATIVE CHLAMYDIA, TMA (test code = 13214) NEGATIVE GC AND CHLAMYDIA, AMPLIFIED, [id number] 00:00:00 Test Item Value Reference Range Interpretation Comments GONORRHEA, TMA (test code = 31888) NEGATIVE CHLAMYDIA, TMA (test code = 35363) NEGATIVE GC AND CHLAMYDIA, AMPLIFIED, [id number] 00:00:00 Test Item Value Reference Range Interpretation Comments GONORRHEA, TMA (test code = 23649) NEGATIVE CHLAMYDIA, TMA (test code = 90574) NEGATIVE VAGINAL PATHOGENS DNA [id number] 00:00:00 Test Item Value Reference Range Interpretation Comments YOKO SPECIES (test code = 68374) POSITIVE G. VAGINALIS (test code = 48797) NEGATIVE T. VAGINALIS (test code = 75584) NEGATIVE VAGINAL PATHOGENS DNA [id number] 00:00:00 Test Item Value Reference Range Interpretation Comments YOKO SPECIES (test code = 91112) POSITIVE G. VAGINALIS (test code = 26923) NEGATIVE T. VAGINALIS (test code = 51353) NEGATIVE VAGINAL PATHOGENS DNA [id number] 00:00:00 Test Item Value Reference Range Interpretation Comments YOKO SPECIES (test code = 71903) POSITIVE G. VAGINALIS (test code = 49058) NEGATIVE T. VAGINALIS (test code = 62936) NEGATIVE VAGINAL PATHOGENS DNA [id number] 00:00:00 Test Item Value Reference Range Interpretation Comments YOKO SPECIES (test code = 13993) POSITIVE G. VAGINALIS (test code = 23121) NEGATIVE T. VAGINALIS (test code = 36100) NEGATIVE VAGINAL PATHOGENS DNA [id number] 00:00:00 Test Item Value Reference Range Interpretation Comments YOKO SPECIES (test code = 04704) POSITIVE G. VAGINALIS (test code = 40944) NEGATIVE T. VAGINALIS (test code = 33304) NEGATIVE VAGINAL PATHOGENS DNA [id number] 00:00:00 Test Item Value Reference Range Interpretation Comments YOKO SPECIES (test code = 72174) POSITIVE G. VAGINALIS (test code = 15533) NEGATIVE T. VAGINALIS (test code = 79764) NEGATIVE GC AND CHLAMYDIA, AMPLIFIED, [id number] 00:00:00 Test Item Value Reference Range Interpretation Comments GONORRHEA, TMA (test code = 06338) NEGATIVE CHLAMYDIA, TMA (test code = 96008) NEGATIVE GC AND CHLAMYDIA, AMPLIFIED, [id number] 00:00:00 Test Item Value Reference Range Interpretation Comments GONORRHEA, TMA (test code = 03289) NEGATIVE CHLAMYDIA, TMA (test code = 84633) NEGATIVE GC AND CHLAMYDIA, AMPLIFIED, [id number] 00:00:00 Test Item Value Reference Range Interpretation Comments GONORRHEA, TMA (test code = 97154) NEGATIVE CHLAMYDIA, TMA (test code = 30604) NEGATIVE GC AND CHLAMYDIA, AMPLIFIED, [id number] 00:00:00 Test Item Value Reference Range Interpretation Comments GONORRHEA, TMA (test code = 95674) NEGATIVE CHLAMYDIA, TMA (test code = 78313) NEGATIVE GC AND CHLAMYDIA, AMPLIFIED, [id number] 00:00:00 Test Item Value Reference Range Interpretation Comments GONORRHEA, TMA (test code = 07146) NEGATIVE CHLAMYDIA, TMA (test code = 70108) NEGATIVE GC AND CHLAMYDIA, AMPLIFIED, [id number] 00:00:00 Test Item Value Reference Range Interpretation Comments GONORRHEA, TMA (test code = 34406) NEGATIVE CHLAMYDIA, TMA (test code = 87743) NEGATIVE CULTURE, [id number] 00:00:00 Test Item Value Reference Range Interpretation Comments CULTURE, URINE (test SPECIMEN NUMBER: code = 70815) [id number] CULTURE, [id number] 00:00:00 Test Item Value Reference Range Interpretation Comments CULTURE, URINE (test SPECIMEN NUMBER: code = 34573) [id number] CULTURE, [id number] 00:00:00 Test Item Value Reference Range Interpretation Comments CULTURE, URINE (test SPECIMEN NUMBER: code = 65920) [id number] CULTURE, [id number] 00:00:00 Test Item Value Reference Range Interpretation Comments CULTURE, URINE (test SPECIMEN NUMBER: code = 94942) [id number] CULTURE, [id number] 00:00:00 Test Item Value Reference Range Interpretation Comments CULTURE, URINE (test SPECIMEN NUMBER: code = 83735) [id number] CULTURE, [id number] 00:00:00 Test Item Value Reference Range Interpretation Comments CULTURE, URINE (test SPECIMEN NUMBER: code = 73026) [id number] HEMOGLOBIN [id number] 00:00:00 Test Item Value Reference Range Interpretation Comments HEMOGLOBIN A1c (test code = 50595) 5.5 % HEMOGLOBIN [id number] 00:00:00 Test Item Value Reference Range Interpretation Comments HEMOGLOBIN A1c (test code = 39361) 5.5 % HEMOGLOBIN [id number] 00:00:00 Test Item Value Reference Range Interpretation Comments HEMOGLOBIN A1c (test code = 86724) 5.5 % CBC W/AUTO [id number] 00:00:00 Test Item Value Reference Range Interpretation [...] code = 1015) 310 K/UL CBC W/AUTO [id number] 00:00:00 Test Item Value Reference Range Interpretation [...] code = 1015) 310 K/UL CBC W/AUTO [id number] 00:00:00 Test Item Value Reference Range Interpretation [...] code = 1015) 310 K/UL COMPREHENSIVE METABOLIC [id number] 00:00:00 Test Item Value Reference Range Interpretation Comments GLUCOSE (test code = 2217) 73 MG/DL BUN (test code = 2208) 10 MG/DL CREATININE (test code = 2214) 0.51 MG/DL eGFR AMER. (test code 158 ML/MIN/1.73 = 23961) eGFR NON- AMER. (test 136 ML/MIN/1.73 code = 55540) CALCULATED BUN/CREAT (test 20 RATIO code = [...] code = 2219) 23 U/L COMPREHENSIVE METABOLIC [id number] 00:00:00 Test Item Value Reference Range Interpretation Comments GLUCOSE (test code = 2217) 73 MG/DL BUN (test code = 2208) 10 MG/DL CREATININE (test code = 2214) 0.51 MG/DL eGFR AMER. (test code 158 ML/MIN/1.73 = 75457) eGFR NON- AMER. (test 136 ML/MIN/1.73 code = 75918) CALCULATED BUN/CREAT (test 20 RATIO code = [...] (test code = 2219) 23 U/L LIPID [id number] 00:00:00 Test Item Value Reference Range Interpretation Comments CHOLESTEROL (test code = 2210) 167 MG/DL TRIGLYCERIDES (test code = 2232) 109 MG/DL HDL CHOLESTEROL (test code = 2220) 58 MG/DL CALCULATED LDL CHOL (test code = 87 MG/DL 2237) RISK RATIO LDL/HDL (test code = 1.50 RATIO 2238) LIPID [id number] 00:00:00 Test Item Value Reference Range Interpretation [...] (test code = 2821) 1.5 UIU/ML HEMOGLOBIN [id number] 00:00:00 Test Item Value Reference Range Interpretation Comments HEMOGLOBIN A1c (test code = 05518) 5.5 % HEMOGLOBIN [id number] 00:00:00 Test Item Value Reference Range Interpretation Comments HEMOGLOBIN A1c (test code = 73887) 5.5 % HEMOGLOBIN [id number] 00:00:00 Test Item Value Reference Range Interpretation Comments HEMOGLOBIN A1c (test code = 43243) 5.5 % HEMOGLOBIN [id number] 00:00:00 Test Item Value Reference Range Interpretation Comments HEMOGLOBIN A1c (test code = 77808) 5.5 % HEMOGLOBIN [id number] 00:00:00 Test Item Value Reference Range Interpretation Comments HEMOGLOBIN A1c (test code = 93251) 5.5 % CBC W/AUTO [id number] 00:00:00 Test Item Value Reference Range Interpretation [...] code = 1015) 310 K/UL CBC W/AUTO [id number] 00:00:00 Test Item Value Reference Range Interpretation [...] code = 1015) 310 K/UL CBC W/AUTO [id number] 00:00:00 Test Item Value Reference Range Interpretation [...] code = 1015) 310 K/UL COMPREHENSIVE METABOLIC [id number] 00:00:00 Test Item Value Reference Range Interpretation Comments GLUCOSE (test code = 2217) 73 MG/DL BUN (test code = 2208) 10 MG/DL CREATININE (test code = 2214) 0.51 MG/DL eGFR AMER. (test code 158 ML/MIN/1.73 = 21725) eGFR NON- AMER. (test 136 ML/MIN/1.73 code = 22740) CALCULATED BUN/CREAT (test 20 RATIO code = [...] code = 2219) 23 U/L COMPREHENSIVE METABOLIC [id number] 00:00:00 Test Item Value Reference Range Interpretation Comments GLUCOSE (test code = 2217) 73 MG/DL BUN (test code = 2208) 10 MG/DL CREATININE (test code = 2214) 0.51 MG/DL eGFR AMER. (test code 158 ML/MIN/1.73 = 22969) eGFR NON- AMER. (test 136 ML/MIN/1.73 code = 10559) CALCULATED BUN/CREAT (test 20 RATIO code = [...] (test code = 2219) 23 U/L LIPID [id number] 00:00:00 Test Item Value Reference Range Interpretation Comments CHOLESTEROL (test code = 2210) 167 MG/DL TRIGLYCERIDES (test code = 2232) 109 MG/DL HDL CHOLESTEROL (test code = 2220) 58 MG/DL CALCULATED LDL CHOL (test code = 87 MG/DL 2236) RISK RATIO LDL/HDL (test code = 1.50 RATIO 2238) LIPID [id number] 00:00:00 Test Item Value Reference Range Interpretation [...] (test code = 2821) 1.5 UIU/ML HEMOGLOBIN [id number] 00:00:00 Test Item Value Reference Range Interpretation Comments HEMOGLOBIN A1c (test code = 25859) 5.5 % CBC W/AUTO [id number] 00:00:00 Test Item Value Reference Range Interpretation [...] code = 1015) 310 K/UL CBC W/AUTO [id number] 00:00:00 Test Item Value Reference Range Interpretation [...] code = 1015) 310 K/UL CBC W/AUTO [id number] 00:00:00 Test Item Value Reference Range Interpretation [...] code = 1015) 310 K/UL COMPREHENSIVE METABOLIC [id number] 00:00:00 Test Item Value Reference Range Interpretation Comments GLUCOSE (test code = 2217) 73 MG/DL BUN (test code = 2208) 10 MG/DL CREATININE (test code = 2214) 0.51 MG/DL eGFR AMER. (test code 158 ML/MIN/1.73 = 47965) eGFR NON- AMER. (test 136 ML/MIN/1.73 code = 43124) CALCULATED BUN/CREAT (test 20 RATIO code = [...] code = 2219) 23 U/L COMPREHENSIVE METABOLIC [id number] 00:00:00 Test Item Value Reference Range Interpretation Comments GLUCOSE (test code = 2217) 73 MG/DL BUN (test code = 2208) 10 MG/DL CREATININE (test code = 2214) 0.51 MG/DL eGFR AMER. (test code 158 ML/MIN/1.73 = 25913) eGFR NON- AMER. (test 136 ML/MIN/1.73 code = 58691) CALCULATED BUN/CREAT (test 20 RATIO code = [...] (test code = 2219) 23 U/L LIPID [id number] 00:00:00 Test Item Value Reference Range Interpretation Comments CHOLESTEROL (test code = 2210) 167 MG/DL TRIGLYCERIDES (test code = 2232) 109 MG/DL HDL CHOLESTEROL (test code = 2220) 58 MG/DL CALCULATED LDL CHOL (test code = 87 MG/DL 2237) RISK RATIO LDL/HDL (test code = 1.50 RATIO 2238) LIPID [id number] 00:00:00 Test Item Value Reference Range Interpretation [...] note is d ifferent from the original. [facility] Images from the original note were not included. [facility] Carlie Briones MD, OLVIN Spencer PA-C, MPAS ASSESSMENT 1. [...] injection is deemed warranted Pt lives near [facility] and witnessed per Brian Spencer PA-C [...] within the past year? YES HISTORY: Carlos Collins is a adult, with PMH of: Degenerative [...] press . COMPARISON: Plain radiograph from 03/16/2020, kne e MR 10/22/2017. 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 Notes Date/Time Note Provider Source 2023-04-28 08:52:15-00:00 Formatting of this note is d [facility]ferent [facility] the [facility] 28 [facility] Chief Complaint Patient presents with Follow-Up Visit 6 month Marlene Hobbs CMA II 2023-04-24 08:51:32-00:00 Formatting of this note is d ifferent from the original. [facility] Chief Complaint Patient presents with Follow-up ERNIE - 12/22/2022 - hx of ast hma and MADHAV. Pt. Unable to get CPAP due to co-pay of $300, same with nebulizer. Connie Puente LVN Electronically signed by Connie Puente LVN a t 04/24/2023 9:01 AM CDT 2023-03-11 10:25:13-00:00 Formatting of this note is d ifferent from the original. [facility] Carlos Collins is a 27 year old adult Chief Complaint Patient presents with Follow-up 27 year old patient c/o amy ateral knee and back pain here for follow up. Pain 04/09. Bri Ackerman MA II
[2023-05-01 10:49] LABS: Absolute Lymphocytes (CBC) 2.1 K/uL (0.7-4.9); Hematocrit 37.2 % (36.0-45.0); Lymphocytes % 29.2 % (15.3-44.8); MCV 86.1 fL (80-100); MPV 8.9 fL (7.6-11.3); Platelets 273 thou/uL (152-406); RBC Red Blood Cell Count 4.32 M/uL (3.86-4.86)
[2023-05-01 10:59] LABS: Protime INR 1.11
[2023-05-01 11:01] LABS: Potassium 3.1 mEq/L (3.5-5.1)
[2023-05-01 11:05] LABS: ALT/SGPT 19 U/L (13-56); Albumin 3.4 g/dL (3.4-5.0); Alkaline Phosphatase 53 U/L (45-117); Bilirubin Direct 0.1 mg/dL (0-0.2); Bilirubin Indirect, Calculated 0.4 mg/dL (0.2-0.8); Bilirubin Total 0.5 mg/dL (0.2-1.0); Protein, Total 8.2 g/dL (6.4-8.2)
[2023-05-01 11:06] LABS: AST/SGOT 14 U/L (15-37)
--- NOTE | 2023-05-01 12:03 | RAD REPORT ---
EXAM DESCRIPTION: CT - Head C Spine Cap Rommel Nevarez - 05/01/2023 11:34 am CLINICAL HISTORY: fall down 4 steps COMPARISON: No comparisons TECHNIQUE: Head and cervical spine CT images were obtained without IV contrast. Chest, abdomen, and pelvis CT images were obtained following intravenous administration of 90 mL Isovue-300. Multiplanar reformats were generated and reviewed. All CT scans are performed using dose optimization technique as appropriate and may include automated exposure control or mA/KV adjustment according to patient size. FINDINGS: CT HEAD: No intracranial hemorrhage, mass effect, or edema. No evidence of acute territorial infarct. No midli ne shift or abnormal fluid collection. The ventricles are normal in caliber and configuration for age . Basal cisterns are patent. Mastoid aircells and paranasal sinuses are clear. No acute skull fractur e. 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 CT CERVICAL SPINE: No acute cervical spine fracture or subluxation. Vertebral body heights are well maintained. Facet juanito ints are normal in alignment. No hyperattenuating canal hematoma. Prevertebral and paraspinous soft t issues are unremarkable apart from medialized bilateral cervical carotid arteries. CT CHEST: No pneumothorax, pulmonary contusion or pleural fluid collection. No mediastinal hematoma and the aor ta and pulmonary arteries are unremarkable. No chest will mass or abnormal axillary finding. No displ aced rib fracture or other significant bony finding. CT ABDOMEN/ PELVIS: Motion artifact somewhat limits evaluation. No evidence of traumatic injury to solid abdominal viscer a. Gallbladder and biliary tree are unremarkable. No bowel injury or significant finding. No free air , free fluid or abnormal fat stranding. No urinary bladder abnormality. No significant bony finding. IMPRESSION: No acute traumatic findings. Incidentally noted left maxillary centrally lucent lesion as above, favored to be of benign nature, p ossibly an ameloblastoma.
--- NOTE | 2023-05-01 12:12 | RAD REPORT ---
EXAM DESCRIPTION: RAD - Femur Left - 05/01/2023 11:44 am CLINICAL HISTORY: PAIN COMPARISON: No comparisons TECHNIQUE: Left femur, 2 views. FINDINGS: No fracture is identified. There is no dislocation or periosteal reaction noted. No acute or suspicious bony finding. IMPRESSION: Negative left femur examination.
--- NOTE | 2023-05-01 12:12 | RAD REPORT ---
EXAM DESCRIPTION: RAD - Femur Right - 05/01/2023 11:44 am CLINICAL HISTORY: PAIN COMPARISON: No comparisons TECHNIQUE: Right femur, 2 views. FINDINGS: No fracture is identified. There is no dislocation or periosteal reaction noted. No acute or suspicious bony finding. IMPRESSION: Negative right femur examination.
--- NOTE | 2023-05-01 12:12 | RAD REPORT ---
EXAM DESCRIPTION: RAD - Knee Right 2 View - 05/01/2023 11:44 am CLINICAL HISTORY: PAIN COMPARISON: Knee Right 2 View dated 10/10/2022 TECHNIQUE: Right knee, 3 views. FINDINGS: No fracture, dislocation or periosteal reaction.No joint effusion seen. No joint space mauro rowing. No soft tissue abnormality. Clinical concerns for internal derangement or occult bony injury could be further assessed with MR im aging. IMPRESSION: Negative right knee.
--- NOTE | 2023-05-01 12:13 | RAD REPORT ---
EXAM DESCRIPTION: RAD - Knee Left 2 View - 05/01/2023 11:44 am CLINICAL HISTORY: PAIN COMPARISON: Knee Left 2 View dated 10/10/2022 TECHNIQUE: Left knee, 2 views. FINDINGS: No fracture, or periosteal reaction. Unchanged laterally situated appearance of the patell a on the AP view, may relate to persistent subluxation. No joint effusion seen. No joint space narrow ing. No soft tissue abnormality. Clinical concerns for internal derangement or occult bony injury could be further assessed with MR im aging. IMPRESSION: Persistent patellar lateral subluxation. No other acute osseous abnormality.
--- NOTE | 2023-05-01 12:13 | RAD REPORT ---
EXAM DESCRIPTION: RAD - Humerus Left - 05/01/2023 11:44 am CLINICAL HISTORY: PAIN COMPARISON: No comparisons TECHNIQUE: Left Humerus, 3 views. FINDINGS: No fracture is identified. There is no dislocation or periosteal reaction noted. No forei gn body or other soft tissue abnormality. IMPRESSION: Negative left humerus examination.
--- NOTE | 2023-05-01 12:14 | RAD REPORT ---
EXAM DESCRIPTION: RAD - Forearm Left - 05/01/2023 11:44 am CLINICAL HISTORY: PAIN COMPARISON: Forearm Left dated 12/03/2013 TECHNIQUE: Left forearm, 2 views. FINDINGS: No fracture is identified. There is no dislocation or periosteal reaction noted. No foreign body or other soft tissue abnormality. IMPRESSION: Negative left forearm radiographs.
--- NOTE | 2023-05-01 12:54 | ER ---
Nurse's Notes [facility] Name: Taylor Rodriguez Age: 28 yrs Sex: Female : 1995 Arrival Date: 05/01/2023 Time: 09:57 Bed 15 Private MD: Diagnosis: Fall (on) (from) other stairs and steps;Contusion of left upper arm;Contusion of right lower leg;Contusion of left lower leg Presentation: 05/01 09:55 Chief complaint: EMS states: PATIENT STATES FELT DIZZY AND THEN FELL BACKWARDS DOWN THE db STAIRS TODAY. STATES HURT LEFT SIDE, SHOULDER AND HIP. ALSO COMPLAINS OF RIGHT KNEE PAIN AND RIGHT BACK PAIN. Coronavirus screen: Vaccine status: Patient reports receiving the 2nd dose of the covid vaccine. Client indicates they have traveled out of the [place] in the last 14 days. At this time, the client does not indicate any symptoms associated with coronavirus-19. Ebola Screen: Patient negative for fever greater than or equal to 101.5 degrees Fahrenheit, and additional compatible Ebola Virus Disease symptoms Patient denies exposure to infectious person. Patient denies travel to an Ebola-affected area in the 21 days before illness onset. No symptoms or risks identified at this time. Initial Sepsis Screen: Does the patient meet any 2 criteria? No. Patient's initial sepsis screen is negative. Does the patient have a suspected source of infection? No. Patient's initial sepsis screen is negative. Risk Assessment: Do you want to hurt yourself or someone else? Patient reports no desire to harm self or others. Onset of symptoms was May 01, 2023. 09:55 Method Of Arrival: EMS: [facility] db 09:55 Acuity: MILAN 3 db Triage Assessment: 10:16 General: Appears in no apparent distress. comfortable, Behavior is calm, cooperative. db Pain: Complains of pain in back, right leg and left leg. Neuro: Level of Consciousness is awake, alert, obeys commands, Oriented to person, place, time, situation. Respiratory: Airway is patent Respiratory effort is even, unlabored, Respiratory pattern is regular, symmetrical. Historical: - Allergies: 10:16 Naproxen; db - PMHx: 10:16 Anxiety; Bipolar disorder; Fibromyalgia; High Blood Pressure; Chronic pain; Depression; db Schizophrenia; Sleep Apnea; - Immunization history:: Adult Immunizations up to date. - Social history:: Smoking status: Patient denies any tobacco usage or history of. - Family history:: not pertinent. - Hospitalizations: : No recent hospitalization is reported. Screenin:30 [facility] ED Fall Risk Assessment (Adult) History of falling in the last 3 months, db including since admission Yes- single mechanical fall (1 pt) Confusion or Disorientation No (0 pts) Intoxicated or Sedated No (0 pts) Impaired Gait No (0 pts) Mobility Assist Device Used Yes (1 pt) Altered Elimination No (0 pt) Score/Fall Risk Level 0 - 2 = Low Risk Oriented to surroundings, Maintained a safe environment. Abuse screen: Denies threats or abuse. Denies injuries from another. Nutritional screening: No deficits noted. Tuberculosis screening: No symptoms or risk factors identified. Assessment: 10:52 Reassessment: PT IN RADIOLOGY. db 11:53 Reassessment: PATIENT RETURNED TO ROOM FROM RADIOLOGY. PATIENT SHAKING AND MAKING db NOISES. IS AOX4. PATIENT STATES XRAY WAS HARD ON HER AND IT HURT. 11:53 Reassessment: Patient appears in no apparent distress at this time. Patient and/or db family updated on plan of care and expected duration. Pain level reassessed. Patient is alert, oriented x 3, equal unlabored respirations, skin warm/dry/pink. General: Appears in no apparent distress. comfortable, Behavior is calm, cooperative. Neuro: Level of Consciousness is awake, alert, obeys commands, Oriented to person, place, time, situation. Respiratory: Airway is patent Respiratory effort is even, unlabored, Respiratory pattern is regular, symmetrical. 12:30 Reassessment: Patient appears in no apparent distress at this time. Patient and/or db family updated on plan of care and expected duration. Pain level reassessed. Patient is alert, oriented x 3, equal unlabored respirations, skin warm/dry/pink. 13:20 Reassessment: Patient appears in no apparent distress at this time. Patient and/or db family updated on plan of care and expected duration. Pain level reassessed. Patient is alert, oriented x 3, equal unlabored respirations, skin warm/dry/pink. Patient states feeling better. Patient states symptoms have improved. Vital Signs: 09:55 BP 122 / 78; Pulse 89; Resp 16; Temp 98.5(O); Pulse Ox 99% on R/A; Weight 136.08 kg; db Height 5 ft. 3 in. ; Pain 8/10; 10:00 BP 139 / 102; Pulse 90; Resp 16; Pulse Ox 100% ; db 12:30 BP 159 / 99; Pulse 78; Resp 18 S; Pulse Ox 99% ; db 09:55 Body Mass Index 53.14 (136.08 kg, 160.02 cm) db 09:55 Pain Scale: Adult db 10:00 PT MOVING db ED Course: 10:04 Patient arrived in ED. eb 10:05 Moses Bell MD is Attending Physician. rn 10:07 Lexi Fraire, ROQUE is Primary Nurse. db 10:16 Triage completed. db 10:18 Arm band placed on Patient placed in an exam room. db 11:00 Client placed on continuous cardiac and pulse oximetry monitoring. NIBP monitoring db applied. Warm blanket given. 11:30 Inserted saline lock: 20 gauge in right antecubital area, using aseptic technique. db ,using aseptic technique. STARTED BY ED STAFF. 11:36 CT Traumagram (Head C Spine CAP W Con) In Process Unspecified. EDMS 11:46 XRAY Femur RIGHT In Process Unspecified. EDMS 11:46 XRAY Femur LEFT In Process Unspecified. EDMS 11:46 XRAY Knee RIGHT 2 view In Process Unspecified. EDMS 11:46 XRAY Knee LEFT 2 view In Process Unspecified. EDMS 11:46 XRAY Humerus LEFT In Process Unspecified. EDMS 11:46 XRAY Forearm LEFT In Process Unspecified. EDMS 13:00 Shaun wrap to left knee and right knee Sling applied to left arm. db 13:19 Patient has correct armband on for positive identification. Bed in low position. Call db light in reach. Side rails up X 1. Provided Education on: DISCHARGE. 13:19 No provider procedures requiring assistance completed. IV discontinued, intact, db bleeding controlled, No redness/swelling at site. Administered Medications: No medications were administered Medication: 13:21 VIS not applicable for this client. db Outcome: 12:54 Discharge ordered by MD. rn 13:19 Discharged to home via wheelchair. db 13:19 Condition: stable 13:19 Discharge instructions given to patient, family, Instructed on discharge instructions, follow up and referral plans. 13:23 Patient left the ED. db Signatures: Dispatcher [employer] Moses Palacios MD MD rn Lolly Vang Danielle, RN RN db
--- NOTE | 2023-05-01 12:54 | EDPHYS ---
Physician Documentation [facility] Name: Taylor Rodriguez Age: 28 yrs Sex: Female : 1995 Arrival Date: 05/01/2023 Time: 09:57 Bed 15 Private MD: ED Physician Moses Bell HPI: 05/01 10:15 This 28 yrs old Black Female presents to ER via Unassigned with complaints of Fall rn Injury. 10:15 Details of fall: The patient fell from a height, down approximately 3 stairs. Onset: rn The symptoms/episode began/occurred just prior to arrival. Severity of symptoms: At their worst the symptoms were moderate, in the emergency department the symptoms are unchanged. The patient has not experienced similar symptoms in the past. Patient reports fall down approximately 3 steps, reports hurts all over. Has fibromyalgia and has difficulty pinpointing new areas of pain. Denies LOC. Reports pain to the left humerus and left forearm as well as pain to bilateral hips and knees. Denies overdose. Denies recent illness.. Historical: - Allergies: 10:16 Naproxen; db - PMHx: 10:16 Anxiety; Bipolar disorder; Fibromyalgia; High Blood Pressure; Chronic pain; Depression; db Schizophrenia; Sleep Apnea; - Immunization history:: Adult Immunizations up to date. - Social history:: Smoking status: Patient denies any tobacco usage or history of. - Family history:: not pertinent. - Hospitalizations: : No recent hospitalization is reported. ROS: 10:17 Constitutional: Negative for fever, chills, and weight loss, Eyes: Negative for injury, rn pain, redness, and discharge, Neck: Negative for injury, pain, and swelling, Cardiovascular: Negative for chest pain, palpitations, and edema, Respiratory: Negative for shortness of breath, cough, wheezing, and pleuritic chest pain, Abdomen/GI: Negative for abdominal pain, nausea, vomiting, diarrhea, and constipation, Back: Positive for back pain MS/Extremity: Positive for pain in left arm and both upper portions of legs Neuro: Negative for headache, weakness, numbness, tingling, and seizure. Exam: 10:17 Constitutional: This is a well developed, well nourished patient who is awake, alert, rn and in no acute distress. Head/Face: Normocephalic, atraumatic. Neck: No midline cervical tenderness Chest/axilla: Normal chest wall appearance and motion. Nontender with no deformity. No lesions are appreciated. Cardiovascular: Regular rate and rhythm. No pulse deficits. Respiratory: No increased work of breathing, no retractions or nasal flaring. Abdomen/GI: Soft, mild mid abdominal tenderness Skin: Warm, dry MS/ Extremity: Pulses equal, no cyanosis. Neurovascular intact. Painful range of motion left shoulder and tender along mid and distal left forearm. Painful range of motion bilateral hips and knees. No ecchymosis or focal swelling. No deformity noted. No tenderness of ankles or feet. Neuro: Awake and alert, GCS 15, oriented to person, place, time, and situation. Cranial nerves II-XII grossly intact. Motor strength 5/5 in all extremities. Sensory grossly intact. 10:37 ECG was reviewed by the Attending Physician. rn Vital Signs: 09:55 BP 122 / 78; Pulse 89; Resp 16; Temp 98.5(O); Pulse Ox 99% on R/A; Weight 136.08 kg; db Height 5 ft. 3 in. ; Pain 8/10; 10:00 BP 139 / 102; Pulse 90; Resp 16; Pulse Ox 100% ; db 12:30 BP 159 / 99; Pulse 78; Resp 18 S; Pulse Ox 99% ; db 09:55 Body Mass Index 53.14 (136.08 kg, 160.02 cm) db 09:55 Pain Scale: Adult db 10:00 PT MOVING db MDM: 10:06 Patient medically screened. rn 10:17 ED course: Patient strangely without obvious signs of trauma. Will obtain imaging and rn rule out acute traumatic injuries. Patient with stable vital signs.. 12:51 Differential diagnosis: closed head injury, contusion, fracture, multiple trauma, rn sprain, strain. Data reviewed: vital signs, nurses notes, lab test result(s), radiologic studies, CT scan, plain films, and as a result, I will discharge patient. Counseling: I had a detailed discussion with the patient and/or guardian regarding the historical points, exam findings, and any diagnostic results supporting the discharge/admit diagnosis, lab results, radiology results, the need for outpatient follow up, to return to the emergency department if symptoms worsen or persist or if there are any questions or concerns that arise at home. Response to treatment: the patient's symptoms have mildly improved after treatment, and as a result, I will discharge patient. Special discussion: I discussed with the patient/guardian in detail that at this point there is no indication for admission to the hospital. It is understood, however, that if the symptoms persist or worsen the patient needs to return immediately for re-evaluation. ED course: No acute traumatic findings on exam. 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 Not currently dislocated but hypermobile on my exam. Will DC home with return precautions.. 05/01 10:13 Order name: Basic Metabolic Panel; Complete Time: rn 05/01 10:13 Order name: CBC with Diff; Complete Time: rn 05/01 10:17 Order name: Acetaminophen; Complete Time: rn 05/01 10:17 Order name: ETOH Level; Complete Time: rn 05/01 10:17 Order name: Hepatic Function; Complete Time: rn 05/01 10:17 Order name: PT-INR; Complete Time: rn 05/01 10:17 Order name: Ptt, Activated; Complete Time: rn 05/01 10:17 Order name: Salicylate; Complete Time: rn 05/01 10:13 Order name: CT Traumagram (Head C Spine CAP W Con); Complete Time: 12:24 rn 05/01 10:13 Order name: XRAY Femur RIGHT; Complete Time: 12:24 rn 05/01 10:13 Order name: XRAY Femur LEFT; Complete Time: 12:24 rn 05/01 10:13 Order name: XRAY Knee RIGHT 2 view; Complete Time: 12:24 rn 05/01 10:13 Order name: XRAY Knee LEFT 2 view; Complete Time: 12:24 rn 05/01 10:13 Order name: XRAY Humerus LEFT; Complete Time: 12:24 rn 05/01 10:13 Order name: XRAY Forearm LEFT; Complete Time: 12:24 rn 05/01 10:17 Order name: EKG; Complete Time: 10: rn 05/01 10:13 Order name: Labs collected and sent; Complete Time: 11:00 rn 05/01 10:17 Order name: EKG - Nurse/Tech; Complete Time: : rn 05/01 10:17 Order name: IV Saline Lock; Complete Time: 10: rn 05/01 12:51 Order name: Shaun Wrap: both knees; Complete Time: 12:59 rn 05/01 12:51 Order name: Sling; Complete Time: 12:59 rn EC:37 Rate is 83 beats/min. Rhythm is regular. QRS [place] is Normal. NV interval is normal. QRS rn interval is normal. QT interval is normal. No Q waves. T waves are Normal. No ST changes noted. Clinical impression: Normal ECG. Interpreted by me. Reviewed by me. Administered Medications: No medications were administered Disposition Summary: 05/01/23 12:54 Discharge Ordered Location: Home rn Problem: new rn Symptoms: have improved rn Condition: Stable rn Diagnosis - Fall (on) (from) other stairs and steps rn - Contusion of left upper arm rn - Contusion of right lower leg rn - Contusion of left lower leg rn Followup: rn - With: Private Physician - When: As needed - Reason: Recheck today's complaints, Re-evaluation by your physician Discharge Instructions: - Discharge Summary Sheet rn - Contusion rn Forms: - Medication Reconciliation Form rn - Thank You Letter rn - Antibiotic 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
[2023-05-01 14:02] VITALS: BP 159/99; O2SAT 99
--- NOTE | 2023-05-02 14:39 | EKG ---
Test Date: 2023-05-01 Test Time: 10:31:30 Invoicing Machine Operator: KHRIS MEASUREMENT RESULTS: Intervals: Rate: 83 MD: 164 QRSD: 80 QT: 382 QTc: 448 Velarde: P: 27 MD: 164 QRS: 39 T: -14 INTERPRETIVE STATEMENTS: Normal sinus rhythm Normal ECG Compared to ECG 02/11/2023 23:31:46 No significant changes Electronically Signed On 05-02-23 14:36:57 CDT by Parmjit Yepez
== END 2023-05-01 13:23 | disposition home or self-care (01) ==
LOC: ER 09:57
DX: S40.022A Contusion of left upper arm, initial encounter (principal); S80.12XA Contusion of left lower leg, initial encounter; S80.11XA Contusion of right lower leg, initial encounter; W10.8XXA Fall (on) (from) other stairs and steps, initial encounter; Z88.6 Allergy status to analgesic agent; F20.9 Schizophrenia, unspecified
CPT/HCPCS: 93005; 85025; 80048; 36415; 85610; 80076; 85730; 70450; 72125; 71260; 74177; 73090; 73060; 73560 ×2; 73552 ×2; 99284; 80143; 80179; 82077; Q9967

== ENCOUNTER 2023-05-19 10:19 | Emergency (ER) | payer OTHER ==
[2023-05-19 10:37] LABS: MCV 86.1 fL (80-100); MPV 8.4 fL (7.6-11.3); Platelets 239 thou/uL (152-406); RBC Red Blood Cell Count 4.18 M/uL (3.86-4.86)
--- OUTSIDE RECORDS SUMMARY | 2023-05-19 10:38 | XMS REPORT | Continuity of Care Document ---
:1995 Author Organization [facility] t Address [address] [facility] [address] [place] [address] Care Team Providers Name Role Phone Roman YOUNG, [facility] Primary Care Physician [phone] DARLIN VICK Attending Clinician Unavailable SHIRLEY BADILLO Attending Clinician Unavailable LEI KIMBALL Attending Clinician Unavailable DORA WINN Attending Clinician Unavailable JONN SCHMIDT Attending Clinician Unavailable LUKE ANGELO Attending Clinician Unavailable ROBYN GARY Attending Clinician Unavailable BYRON MALHOTRA Attending Clinician Unavailable GAURAV PURVIS Attending Clinician Unavailable LAB90 Attending Clinician Unavailable MD ARAVIND Attending Clinician Unavailable CARLIE BRIONES Attending Clinician Unavailable ANGELICA NEVAREZ Attending Clinician Unavailable RACHEL MAHONEY Attending Clinician Unavailable Juan Carlos ANGELES, Rachel Munoz Attending Clinician [phone] [facility] Attending Clinician Unavailable KELSEY WANG Attending Clinician Unavailable SIMI JOHN Attending Clinician Unavailable OLENA TREVIÑO Attending Clinician Unavailable JAROD TURPIN Attending Clinician Unavailable PLAGEETHA Attending Clinician Unavailable JENNIFER BYNUM Attending Clinician Unavailable JALYN CRUZ Attending Clinician Unavailable MANOLO MARTINEZ Attending Clinician Unavailable PATGAUTAM WINCHESTER Attending Clinician Unavailable PL, TECH 1 Attending Clinician Unavailable LAB47 Attending Clinician Unavailable MARIANO Attending Clinician Unavailable ANNEMARIE GRAFF Attending Clinician Unavailable Sandy EDWARDS, Alexandre Attending Clinician SHEY BIANCHI Attending Clinician Unavailable Doctor Unassigned, [place] Attending Clinician Unavailable Shey Bianchi MD Attending Clinician ALEXANDRE DELGADO Attending Clinician Unavailable James Sosa MD Attending Clinician Care, [facility] Primary Attending Clinician Unavailable ILIANA LAMAR Attending Clinician Unavailable Annemarie Alexander Attending Clinician Dannie Monroe MD Attending Clinician DANNIE MONROE Attending Clinician Unavailable MARIANO Admitting Clinician Unavailable ALEXANDRE DELGADO Admitting Clinician Unavailable Payers Payer Name Policy Type Policy Number Effective Date Expiration Date S dameon AETNA MP CVS 9 [id number] 2022 [place]: HMO BUCKLE SEWER 94 00:00:00 ON STAND AETNA EXCHANGE [id number] 2022 00:00:00 AETNA CVS 2 [id number] 2022 [place] 00:00:00 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 0-12 it y of 00:00: [place] 00 Medical Branch Conversion Conversion Disease Active [...] 00:00: Medical 00 Center Naproxen Propensi Active [facility]17 [facility] adverse 00:00: Medical reaction 00 Center s Naproxen Propensi Active 2021-08 - Oral ty to 2-15 adverse 00:00: reaction 00 to drug Naproxen Propensi Active Johann Bowles ty to 5-09 reaction( Seybold adverse 00:00: s): - reaction 00 Unknown Externa s l Naproxen Propensi Active Nausea Univer s ty to and/or 04-28 ity of adverse Vomiting 00:00: [place] reaction 00 Medical s Branch NAPROXEN DRUG Active N/V Univers INGREDI 04-28 ity of 00:00: [place] 00 Medical Branch Naproxen Propensi Active ty to -19 adverse 00:00: reaction 00 to drug Codeine Propensi Active Jelena ty to 01-16 Seybold adverse 00:00: - reaction 00 Externa s l NO KNOWN Drug Active Univers ALLERGIE Class ity of S [facility] Social History Social Habit Start Date Stop Date Quantity Comments Source Gender identity 2022-09-04 Identifies as Jelena Ibrahim - 10:33:35 male gender External (finding) Sexual orientation 2022-09-04 Jelena Ibrahim - 10:33:35 External History of tobacco Cigarette Smoker Jelena Ibrahim - use External History SDOH Jelena Ashley ld - Alcohol Frequency Externa l History SDOH Jelena Ashley ld - 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 SDOH Jelena Ashley ld - Alcohol Binge External Exposure to Not sure University of SARS-CoV-2 (event) [facility] Alcohol intake 2023-05-06 2023-05-06 Current drinker Beth Ibrahim - 00:00:00 00:00:00 of alcohol External (finding) History of Social 2022-12-22 2022-12-22 Jelena Eatonold - function 00:00:00 00:00:00 External Tobacco use and 2022-12-22 2022-12-22 Smokeless tobacco Ke sveta Guevaraybold - exposure 00:00:00 00:00:00 non-user External Alcohol Comment 2022-09-09 2022-09-09 rare Jelena Guevara ybold - 00:00:00 00:00:00 External Tobacco Comment 2019-08-16 2019-08-16 Quit Universit y of 00:00:00 00:00:00 smoking/vaping [facility] earlier this year Branch Sex Assigned At [address] Alejandrina kes 00:00:00 00:00:00 Medical Center Smoking Status Start Date Stop Date Source Occasional tobacco 2022-12-22 00:00:00 Jelena Guevara ybold - smoker External Never smoked tobacco Jelena Eaton old - External Former smoker 2020-09-07 00:00:00 2020-09-07 [place] [facility] 00:00:00 Medical Branch Medications Ordered Filled Start Stop Current Ordering Indication Dosage Frequency Signature Comments Components Source Medication Medication Date Date Medication? Clinician (SIG) Name Name MELOXICAM 2022- No 10mg Take 10 mg K elsey OR 05-06- by mouth. Seybold 11:02: 00:00 - 12 :00 Externa l Dicyclomine Yes 20mg Take 1 Ashlie ey HCl 20 MG 05-06 tablet (20 Seyb old oral Tablet 10:32: mg total) - 52 by mouth Externa every 6 l (six) hours. Trazodone 0 Yes every 24 Ashlie ey HCl 100 MG - hours Seybold oral Tablet 10:32: - 52 Externa l Cyanocobala Yes Take by Emanuel woodard min 05-06 mouth. Seybold (VITAMIN B 10:32: - 12 OR) 52 Externa l Ketorolac 0 Yes [id number] 10mg Q.25D Take 1 Jelena Tromethamin 05-06 tablet (10 Se ybold e 10 MG 00:00: mg total) - oral Tablet 00 by mouth Exte rna every 6 l hours as needed for pain. Ketorolac 2022- No [id number] 30mg Ke sveta Tromethamin 04-28 Seybold e (TORADOL) 14:00: 14:09 - 30 mg/mL 00 :00 Externa l Ketorolac 2022- No [id number] 30mg 30 mg, Jelena Tromethamin 04-28 intramuscu S eybold e (TORADOL) 14:00: 14:09 lar, ONCE, - 30 mg/mL 00 :00 On Tue Externa 04/28/23 at l 0900, For 1 dose Cyanocobala Yes Take by Emanuel sey min 04-28 mouth Seybold (VITAMIN B 08:57: - 12 OR) 25 Externa l Dicyclomine 2023-0 Yes 20mg Take 1 Ashlie ey HCl 20 MG 8-29 tablet (20 Seyb old oral Tablet 08:57: mg total) - 25 by mouth Externa every 6 l (six) hours. Trazodone 2022-0 Yes every 24 Ashlie ey HCl 100 MG 8-29 hours Seybold oral Tablet 08:57: - 25 Externa l MELOXICAM 2022-0 Yes 10mg Take 10 mg Ke lsey OR 8-29 by mouth. Seybold 08:57: - 25 Externa l Losartan 2022-0 Yes [id number] 100mg TAKE ONE Jelena Potassium 8-28 (1) Seybold (COZAAR) 00:00: TABLET(S) - 100 MG oral 00 BY MOUTH Exte rna Tablet ONCE A l DAY. Aripiprazol 0 Yes 1{tbl} Take 1 Ke lsey e 20 MG 8-28 tablet by Seybold oral Tablet 00:00: mouth at - 00 bedtime. Externa l Losartan 0 Yes [id number] 100mg TAKE ONE Jelena Potassium 8-28 (1) Seybold (COZAAR) 00:00: TABLET(S) - 100 MG oral 00 BY MOUTH Exte rna Tablet ONCE A l DAY. Aripiprazol 0 Yes 1{tbl} Take 1 Ke lsey e 20 MG 8-28 tablet by Seybold oral Tablet 00:00: mouth at - 00 bedtime. Externa l Cyanocobala 0 Yes Take by Emanuel sey min 8-25 mouth Seybold (VITAMIN B 08:57: - 12 OR) 54 Externa l Dicyclomine 0 Yes 20mg Take 1 Ashlie ey HCl 20 MG 8-25 tablet (20 Seyb old oral Tablet 08:57: mg total) - 54 by mouth Externa every 6 l (six) hours. 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 Aripiprazol 2022-0 2022- No Abilify Ke sveta e (Abilify) 8-25 08-25 Seybold 10 MG oral 08:57: 00:00 - Tablet 54 :00 Externa l Fluticasone 2022-0 Yes [id number] 1{puff} Inhale 1 Jelena -Salmeterol 8-25 6 puff into Sey bold (Advair 00:00: the lungs - Diskus) 00 2 times Externa 100-50 daily. l MCG/ACT inhalation AEROSOL POWDER, BREATH ACTIVATED Fluticasone 2022-0 Yes [id number] 1{puff} Inhale 1 Jelena -Salmeterol 8-25 6 puff into Sey bold (Advair 00:00: the lungs - Diskus) 00 2 times Externa 100-50 daily. l MCG/ACT inhalation AEROSOL POWDER, BREATH ACTIVATED Fluticasone 2022-0 Yes [id number] 1{puff} Inhale 1 Jelena -Salmeterol 8-25 6 puff into Sey bold (Advair 00:00: the lungs - Diskus) 00 2 times Externa 100-50 daily. l MCG/ACT inhalation AEROSOL POWDER, BREATH ACTIVATED Fluticasone 2022-0 2022- No [id number] 1{puff} Inhale 1 Jelena -Salmeterol 8-25 08-25 6 puff into Se ybold (Advair 00:00: 00:00 the lungs - Diskus) 00 :00 2 times Externa 100-50 daily. l MCG/ACT inhalation AEROSOL POWDER, BREATH ACTIVATED Potassium 2022-0 Yes [id number] 1{tbl} TAKE ONE Jelena Chloride ER 8-22 (1) Seybold 20 MEQ oral 00:00: TABLET(S) - Tab CR 00 BY MOUTH Externa DAILY. l Meclizine 2022-0 Yes [id number] TAKE ONE Jelena HCl 25 MG 8-22 (1) Seybold oral Tablet 00:00: TABLET(S) - 00 BY MOUTH Externa THREE l TIMES A DAY NEEDED. FeroSul 325 2022-0 Yes [id number] TAKE ONE Jelena (65 Fe) MG 8-22 (1) TABLET Sey bold oral Tablet 00:00: (325 MG - 00 TOTAL) BY Externa MOUTH l DAILY (WITH BREAKFAST) . Topiramate 2023-0 Yes 50mg Take 1 Kelse y 50 MG oral 8-22 tablet (50 Sey bold Tablet 00:00: mg total) - 00 by mouth Externa every 12 l hours. Potassium 2023-0 Yes [id number] 1{tbl} TAKE ONE Jelena Chloride ER 8-22 (1) Seybold 20 MEQ oral 00:00: TABLET(S) - Tab CR 00 BY MOUTH Externa DAILY. l Meclizine 2023-0 Yes [id number] TAKE ONE Jelena HCl 25 MG 8-22 (1) Seybold oral Tablet 00:00: TABLET(S) - 00 BY MOUTH Externa THREE l TIMES A DAY NEEDED. FeroSul 325 2022-0 Yes [id number] TAKE ONE Jelena (65 Fe) MG 8-22 (1) TABLET Sey bold oral Tablet 00:00: (325 MG - 00 TOTAL) BY Externa MOUTH l DAILY (WITH BREAKFAST) . Topiramate 2023-0 Yes 50mg Take 1 Kelse y 50 MG oral 8-22 tablet (50 Sey bold Tablet 00:00: mg total) - 00 by mouth Externa every 12 l hours. Potassium 2023-0 Yes [id number] 1{tbl} TAKE ONE Jelena Chloride ER 8-22 (1) Seybold 20 MEQ oral 00:00: TABLET(S) - Tab CR 00 BY MOUTH Externa DAILY. l Meclizine 2023-0 Yes [id number] TAKE ONE Jelena HCl 25 MG 8-22 (1) Seybold oral Tablet 00:00: TABLET(S) - 00 BY MOUTH Externa THREE l TIMES A DAY NEEDED. FeroSul 325 2022-0 Yes [id number] TAKE ONE Jelena (65 Fe) MG 8-22 (1) TABLET Sey bold oral Tablet 00:00: (325 MG - 00 TOTAL) BY Externa MOUTH l DAILY (WITH BREAKFAST) . Topiramate 2023-0 Yes 50mg Take 1 Kelse y 50 MG oral 8-22 tablet (50 Sey bold Tablet 00:00: mg total) - 00 by mouth Externa every 12 l hours. Topiramate 2023-0 2023- No TAKE TWO Ke lsey 25 MG oral 8-21 08-25 (2) Seybold Tablet 00:00: 00:00 TABLETS - 00 :00 EVERY 12 Externa HOURS. l albuterol 2022-0 Yes 1{puff} Inhale [address] HFA 8-17 puff by [facility] (VENTOLIN 11:24: mouth via Med ical HFA) 90 00 inhaler Center mcg/actuati every 6 on inhaler (six) hours as needed for Wheezing. ARIPiprazol 2022-0 Yes 15mg QD Take 1.[address] [facility] (ABILIFY) 8-17 tablets [facility] 10 MG 11:24: (15 mg Medical tablet 00 total) by Center mouth daily. budesonide 2022-0 Yes 1{puff} Q.5D Inhale [address] [facility] [address] (PULMICORT) 8-17 puff by [facility] 180 11:24: mouth via Medical mcg/actuati [address] on inhaler (two) times daily. cholecalcif 2022-0 Yes [id number] Q7D Take [address] juan, 8-17 tablet [facility] vitamin D3, 11:24: (50,000 Med ical 1,250 mcg 00 Units Center (50,000 total) by unit) Tab mouth once a week. cyanocobala 2022-0 Yes 100ug QD Take [address] [facility] min 8-17 tablet [facility] (VITAMIN 11:24: (100 mcg Medic al B-12) 100 00 total) by Cente r MCG tablet mouth daily. cyclobenzap 2022-0 Yes 10mg Take [address] [facility] rine 8-17 tablet (10 [facility] (FLEXERIL) 11:24: mg total) Me dical 10 MG 00 by mouth 3 Center tablet (three) times daily as needed for Muscle spasms. dicyclomine 2022-0 Yes 20mg Take [address] [facility] (BENTYL) 20 8-17 tablet (20 Alejandrina kes mg tablet 11:24: mg total) Med ical 00 by mouth Center every 6 (six) hours. docusate 2022-0 Yes 100mg Q.5D Take [address] [facility] sodium 8-17 capsule [facility] (COLACE) 11:24: (100 mg Medica l 100 MG 00 total) by Center capsule mouth 2 (two) times daily. DULoxetine 2022-0 Yes 30mg QD Take 1 [facility] (CYMBALTA) 8-17 capsule [facility] 30 MG 11:24: (30 mg Medical capsule 00 total) by Center mouth daily. ferrous 3-0 Yes 325mg Take [address] [facility] sulfate 325 8-17 tablet [facility] (65 FE) MG 11:24: (325 mg Medi nereida tablet 00 total) by Center mouth daily with breakfast. hydroCHLORO 2023-0 Yes 12.5mg QD Take [address] thiazide 8-17 tablet [facility] (HYDRODIURI 11:24: (12.5 mg Me dical L) 12.5 MG 00 total) by Cent er tablet mouth daily. hydrOXYzine 2022-0 Yes 50mg Take [address] [facility] (ATARAX) 25 8-17 tablets [facility] MG tablet 11:24: (50 mg Medica l 00 total) by Center mouth 3 (three) times daily as needed for Itching. losartan 2022-0 Yes 100mg QD Take [address] [facility] (COZAAR) 8-17 tablet [facility] 100 MG 11:24: (100 mg Medical tablet 00 total) by Center mouth daily. meclizine 2022-0 Yes 25mg Take [address] [facility] (ANTIVERT) 8-17 tablet (25 Cesario es 25 MG 11:24: mg total) Medical tablet 00 by mouth 3 Center (three) times daily as needed. MELOXICAM 2022-0 Yes 10mg Take [address] [facility] ORAL 8-17 by mouth. [facility] 11:24: Medical 00 Center etonogestre 2022-0 Yes 68mg [address] [facility] [address] [facility] 8-17 Subdermal [facility] (Nexplanon) 11:24: route Medic al 68 mg 00 once. Center implant ondansetron 2022-0 Yes 4mg Take [address] [facility] (ZOFRAN-ODT 8-17 tablet (4 Cesario es ) 4 MG 11:24: mg total) Medica l disintegrat 00 by mouth 4 Ce nter ing tablet (four) times daily as needed for Nausea. orphenadrin 2022-0 Yes 100mg Q.5D Take [address] [facility] (NORFLEX) 8-17 tablet [facility] 100 mg 11:24: (100 mg Medical tablet 00 total) by Center mouth 2 (two) times daily. potassium 3-0 Yes 20meq Q.5D Take [address] [facility] chloride 8-17 mEq by [facility] (KLOR-CON) 11:24: mouth 2 Medi nereida 20 mEq 00 (two) Center packet times daily. propranoloL 2023-0 Yes 10mg [id number] Take [address] [facility] (INDERAL) 8-17 [id number] tablet (10 [facility] 10 MG 11:24: 3D mg total) Medical tablet 00 by mouth 3 Center (three) times daily. topiramate 2022-0 Yes 25mg Q.5D Take 1 [facility] (TOPAMAX) 8-17 tablet (25 [facility] 25 MG 11:24: mg total) Medical tablet 00 by mouth 2 Center (two) times daily. traMADoL 2022-0 Yes 50mg Take [address] [facility] (ULTRAM) 50 8-17 tablet (50 Alejandrina kes mg tablet 11:24: mg total) Med ical 00 by mouth Center every 6 (six) hours as needed for Pain. Max Daily Amount: 200 mg traZODone 2022-0 Yes 100mg QD Take 1 [facility] (DESYREL) 8-17 tablet [facility] 100 MG 11:24: (100 mg Medical tablet 00 total) by Center mouth nightly. Cyanocobala 2022-0 Yes Take by Emanuel sey min 7-12 mouth Seybold (VITAMIN B 10:25: - 12 OR) 36 Externa l Metoclopram 2022-0 Yes 10mg Take 1 Ashlie ey jonathan HCl 7-12 tablet (10 Seybol d (Reglan) 10 10:25: mg total) - MG oral 36 by mouth 4 [employer] a Tablet times l daily Dicyclomine 2022-0 [...] Tablet 10:25: - 36 Externa l Topiramate 2022-0 Yes TAKE ONE Emanuel sey 25 MG [...] l inhalation EIGHT Inhalant HOURS Solution NEEDED. predniSONE Yes TAKE FOUR Ke lsey (DELTASONE) [...] Solution NEEDED. Cyanocobala Yes Take by Emanuel woodard min 6-21 mouth Seybold (VITAMIN B 11:04: - 12 OR) 18 Externa l Metoclopram 2022-0 Yes 10mg Take 1 Ashlie ey jonathan HCl 6-21 tablet (10 Seybol d (Reglan) 10 11:04: mg total) - MG oral 18 by mouth 4 [employer]unnel [employer] a Tablet times l daily Dicyclomine 2022-0 Yes 20mg Take 1 Ashlie ey HCl 20 MG 6-21 tablet (20 Seyb old oral Tablet 11:04: mg total) - 18 by mouth Externa every 6 l (six) hours Aripiprazol 2022-0 Yes Abilify Emanuel sey e (Abilify) 6-21 Seybold 10 MG oral 11:04: - Tablet 18 Externa l Trazodone 2022-0 Yes every 24 Ashlie ey HCl 100 MG 6-21 hours Seybold oral Tablet 11:04: - 18 Externa l Propranolol 2023-0 Yes [id number] 10mg Take 1 Jelena HCl 10 MG 6-21 tablet (10 Seyb old oral Tablet 00:00: mg total) - 00 by mouth 3 Externa times l daily hydroCHLORO 2023-0 Yes [id number] 12.5mg Take 1 Jelena thiazide 6-21 capsule Seybold 12.5 MG 00:00: (12.5 mg - oral 00 total) by Externa Capsule mouth l daily Potassium 3-0 Yes [id number] 1{tbl} Take 1 Jelena Chloride ER 6-21 tablet by Sey bold 20 MEQ oral 00:00: mouth - Tab CR 00 daily Externa l Propranolol 3-0 Yes [id number] 10mg Take 1 Jelena HCl 10 MG 6-21 tablet (10 Seyb old oral Tablet 00:00: mg total) - 00 by mouth 3 Externa times l daily Budesonide 3-0 Yes [id number] Inhale 2 Jelena 90 MCG/ACT 6-21 inhalation Sey bold inhalation 00:00: s into the - AEROSOL 00 lungs Externa POWDER, daily l BREATH ACTIVATED hydroCHLORO 3-0 Yes [id number] 12.5mg Take 1 Jelena thiazide 6-21 capsule Seybold 12.5 MG 00:00: (12.5 mg - oral 00 total) by Externa Capsule mouth l daily Potassium 3-0 Yes [id number] 1{tbl} Take 1 Jelena Chloride ER 6-21 tablet by Sey bold 20 MEQ oral 00:00: mouth - Tab CR 00 daily Externa l Propranolol 2023-0 Yes [id number] 10mg Take 1 Jelena HCl 10 MG 6-21 tablet (10 Seyb old oral Tablet 00:00: mg total) - 00 by mouth 3 Externa times l daily Budesonide 2023-0 Yes [id number] Inhale 2 Jelena 90 MCG/ACT 6-21 inhalation Sey bold inhalation 00:00: s into the - AEROSOL 00 lungs Externa POWDER, daily l BREATH ACTIVATED hydroCHLORO 2023-0 Yes [id number] 12.5mg Take 1 Jelena thiazide 6-21 capsule Seybold 12.5 MG 00:00: (12.5 mg - oral 00 total) by Externa Capsule mouth l daily Propranolol 2022-0 Yes [id number] 10mg Take 1 Jelena HCl 10 MG 6-21 tablet (10 Seyb old oral Tablet 00:00: mg total) - 00 by mouth 3 Externa times l daily hydroCHLORO 3-0 Yes [id number] 12.5mg Take 1 Jelena thiazide 6-21 capsule Seybold 12.5 MG 00:00: (12.5 mg - oral 00 total) by Externa Capsule mouth l daily Propranolol 3-0 Yes [id number] 10mg Take 1 Jelena HCl 10 MG 6-21 tablet (10 Seyb old oral Tablet 00:00: mg total) - 00 by mouth 3 Externa times l daily hydroCHLORO 3-0 Yes [id number] 12.5mg Take 1 Jelena thiazide 6-21 capsule Seybold 12.5 MG 00:00: (12.5 mg - oral 00 total) by Externa Capsule mouth l daily Budesonide 2022-0 2022- No [id number] Inhale 2 Jelena 90 MCG/ACT 6-21 08-25 inhalation Se ybold inhalation 00:00: 00:00 s into the - AEROSOL 00 :00 lungs Externa POWDER, daily l BREATH ACTIVATED Meclizine 2022-0 Yes [id number] TAKE ONE Jelena HCl 25 MG 6-19 (1) Seybold oral Tablet 00:00: TABLET(S) - 00 BY MOUTH Externa THREE l TIMES A DAY NEEDED. Meclizine 2022-0 Yes [id number] TAKE ONE Jelena HCl 25 MG 6-19 (1) Seybold oral Tablet 00:00: TABLET(S) - 00 BY MOUTH Externa THREE l TIMES A DAY NEEDED. Gabapentin 2022-0 Yes [id number] 100mg Take 1 Jelena 100 MG oral 6-18 capsule Seybo ld Capsule 00:00: (100 mg - 00 total) by Externa mouth 3 l times daily Gabapentin 2022-0 2023- No [id number] 100mg Take 1 Jelena 100 MG oral 6-18 07-12 capsule Seyb old Capsule 00:00: 00:00 (100 mg - 00 :00 total) by Externa mouth 3 l times daily Losartan 0 Yes [id number] 100mg Take 1 Ke lsey Potassium 6-05 tablet Seybold (COZAAR) 00:00: (100 mg - 100 MG oral 00 total) by Ext jonathan Tablet mouth l daily Losartan 0 Yes [id number] 100mg Take 1 Ke lsey Potassium 6-05 tablet Seybold (COZAAR) 00:00: (100 mg - 100 MG oral 00 total) by Ext jonathan Tablet mouth l daily Losartan 0 Yes [id number] 100mg Take 1 Ke lsey Potassium 6-05 tablet Seybold (COZAAR) 00:00: (100 mg - 100 MG oral 00 total) by Ext jonathan Tablet mouth l daily Metoclopram Yes 10mg Take 1 Ashlie ey jonathan HCl 5-31 tablet (10 Seybol d (Reglan) 10 10:58: mg total) - MG oral 34 by mouth 4 [employer]unnel [employer] a Tablet times l daily Dicyclomine Yes [...] then 2 po q 12 hrs, Topiramate 0 Yes Topamax Ashlie ey (Topamax) 5-31 25mg Start Seyb old 25 MG oral 00:00: 1 po qd x - Tablet 00 3 days, 1 Externa po q 12 l hrs x 3 days, then 2 po q 12 hrs, Meclizine Yes [id number] TAKE ONE Jelena HCl 25 MG 5-22 (1) Seybold oral Tablet 00:00: TABLET(S) - 00 BY MOUTH Externa THREE l TIMES A DAY NEEDED. Meclizine 0 2022- No [id number] TAKE ONE Jelena HCl 25 MG 5-22 -19 (1) Seybold oral Tablet 00:00: 00:00 TABLET(S) - 00 :00 BY MOUTH Externa THREE l TIMES A DAY NEEDED. Losartan 2022-0 Yes [id number] 1{tbl} Take 1 K elsey Potassium-H 5-15 tablet by Sey bold CTZ 50-12.5 00:00: mouth - MG oral 00 daily Externa Tablet l Gabapentin 2022-0 Yes [id number] 100mg Take 1 Jelena 100 MG oral 5-15 capsule Seybo ld Capsule 00:00: (100 mg - 00 total) by Externa mouth 3 l times daily Gabapentin 2022-0 2022- No [id number] 100mg Take 1 Jelena 100 MG oral 5-15 -16 capsule Seyb old Capsule 00:00: 00:00 (100 mg - 00 :00 total) by Externa mouth 3 l times daily Cholecalcif 2022-0 Yes Jelena juan 5-06 Seybold (Vitamin 00:00: - D3) 1.25 MG 00 Externa (66291 UT) l oral Capsule Cholecalcif 2022-0 Yes TAKE ONE Ke lsey juan 5-06 (1) Seybold (Vitamin 00:00: CAPSULE(S) - D3) 1.25 MG 00 BY MOUTH Exte rna (77224 UT) TWICE A l oral WEEK. Capsule Cholecalcif 2022-0 Yes TAKE ONE Ke lsey juan 5-06 (1) Seybold (Vitamin 00:00: CAPSULE(S) - D3) 1.25 MG 00 BY MOUTH Exte rna (74043 UT) TWICE A l oral WEEK. Capsule Cholecalcif 2022-0 Yes TAKE ONE Ke lsey juan 5-06 (1) Seybold (Vitamin 00:00: CAPSULE(S) - D3) 1.25 MG 00 BY MOUTH Exte rna (89249 UT) TWICE A l oral WEEK. Capsule Cholecalcif 2022-0 Yes Jelena juan 5-06 Seybold (Vitamin 00:00: - D3) 1.25 MG 00 Externa (31037 UT) l oral Capsule Trazodone 0 2023- No [id number] 100mg Take 1 Jelena HCl 100 MG 12-29 05-01 tablet Seybol d oral Tablet 11:10: 00:00 (100 mg - 14 :00 total) by Externa mouth at l bedtime Cyanocobala 2022-0 Yes Take by Emanuel sey min 5-01 mouth Seybold (VITAMIN B 09:56: - 12 OR) 28 Externa l Tramadol 2022-0 Yes [id number] 50mg Q.25D Take 1 K elsey HCl 5-01 tablet (50 Seybold (ULTRAM) 50 00:00: mg total) - MG oral 00 by mouth Externa Tablet every 6 l hours as needed for pain Tramadol 2022-0 Yes [id number] 50mg Q.25D Take 1 K elsey HCl 5-01 tablet (50 Seybold (ULTRAM) 50 00:00: mg total) - MG oral 00 by mouth Externa Tablet every 6 l hours as needed for pain Tramadol 2022-0 Yes [id number] 50mg Q.25D Take 1 K elsey HCl 5-01 tablet (50 Seybold (ULTRAM) 50 00:00: mg total) - MG oral 00 by mouth Externa Tablet every 6 l hours as needed for pain Tramadol 2022-0 Yes [id number] 50mg Q.25D Take 1 K elsey HCl 5-01 tablet (50 Seybold (ULTRAM) 50 00:00: mg total) - MG oral 00 by mouth Externa Tablet every 6 l hours as needed for pain Tramadol 2022-0 2023- No [id number] 50mg Q.25D Take 1 Jleena HCl 5-01 08-25 tablet (50 Seybold (ULTRAM) [...] - 00 Externa l Trazodone 2022-0 Yes [id number] 100mg Take 1 K elsey HCl 100 MG 4-24 tablet Seybold oral Tablet 08:55: (100 mg - 22 total) by Externa mouth at l bedtime Cyanocobala 2022-0 Yes Take by Emanuel sey min 4-24 mouth Seybold (VITAMIN B 08:55: - 12 OR) 22 Externa l Albuterol 0 Yes [id number] 2{puff} Q.25D Inhale 2 Jelena HFA 108 (90 4-24 puffs into Se ybold Base) 00:00: the lungs - MCG/ACT IN 00 every 6 [employer]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 Albuterol 2022-0 Yes [id number] 2{puff} Q.25D Inhale 2 Jelena HFA 108 (90 4-24 puffs [address] Se [employer]) 00:00: the lungs - MCG/ACT IN 00 every 6 [employer] a AERS hours as l needed for wheezing or shortness of breath Albuterol 2022-0 Yes [id number] 2{puff} Q.25D Inhale 2 Jelena HFA 108 (90 4-24 puffs into Se [employer]) 00:00: the lungs - MCG/ACT IN 00 every 6 [employer] a AERS hours as l needed for wheezing or shortness of breath Albuterol 2022-0 Yes [id number] 2{puff} Q.25D Inhale 2 Jelena HFA 108 (90 4-24 puffs into Se [employer]) 00:00: the lungs - MCG/ACT IN 00 every 6 [employer] AERS hours as l needed for wheezing or shortness of breath Albuterol 2023-0 Yes [id number] 2{puff} Q.25D Inhale 2 Jelena HFA 108 (90 4-24 puffs into Se [employer]) 00:00: the lungs - MCG/ACT IN 00 every 6 [employer] AERS hours as l needed for wheezing or shortness of breath Albuterol 2023-0 Yes [id number] 2{puff} Q.25D Inhale 2 Jelena HFA 108 (90 4-24 puffs into Se [employer]) 00:00: the lungs - MCG/ACT IN 00 every 6 [employer] AERS hours as l needed for wheezing or shortness of breath Albuterol 2023-0 Yes [id number] 2{puff} Q.25D Inhale 2 Jelena HFA 108 (90 4-24 puffs into Se [employer]) 00:00: the lungs - MCG/ACT IN 00 every 6 [employer] AERS hours as l needed for wheezing or shortness of breath Cyclobenzap 2023-0 Yes 10mg Q.[id number] Take 1 Jelena rine HCl 10 4-22 [id number] tablet (10 [facility] oral 00:00: 3D mg total) - Tablet 00 by mouth Externa every 8 l hours as needed. Cyclobenzap 2023-0 Yes 10mg Q.[id number] Take 1 Jelena rine HCl 10 4-22 [id number] tablet (10 [facility] MG oral 00:00: 3D mg total) - Tablet 00 by mouth Externa every 8 l hours as needed Cyclobenzap 2023-0 Yes 10mg Q.[id number] Take 1 Jelena rine HCl 10 4-22 [id number] tablet (10 [facility] MG oral 00:00: 3D mg total) - Tablet 00 by mouth Externa every 8 l hours as needed Cyclobenzap 2023-0 Yes 10mg Q.[id number] Take 1 Jelena rine HCl 10 4-22 [id number] tablet (10 [facility] MG oral 00:00: 3D mg total) - Tablet 00 by mouth Externa every 8 l hours as needed Cyclobenzap 2023-0 Yes 10mg Q.25635390 Take 1 Jelena rine HCl 10 4-22 [id number] tablet (10 Sey[facility] MG oral 00:00: 3D mg total) - Tablet 00 by mouth Externa every 8 l hours as needed Cyclobenzap 2023-0 Yes 10mg Q.[id number] Take 1 Jelena rine HCl 10 4-22 [id number] tablet (10 [facility] MG oral 00:00: 3D mg total) - Tablet 00 by mouth Externa every 8 l hours as needed Cyclobenzap 2023-0 Yes 10mg Q.[id number] Take 1 Jelena rine HCl 10 4-22 [id number] tablet (10 [facility] MG oral 00:00: 3D mg total) - Tablet 00 by mouth Externa every 8 l hours as needed Cyclobenzap 2023-0 Yes 10mg Q.55493069 Take 1 Jelena rine HCl 10 -22 [id number] tablet (10 [facility] MG oral 00:00: 3D mg total) - Tablet 00 by mouth Externa every 8 l hours as needed. Gabapentin 2023-0 Yes [id number] 100mg Take 1 Jelena 100 MG oral 4-20 capsule Seybo ld Capsule 00:00: (100 mg - 00 total) by Externa mouth 3 l times daily Gabapentin 2023-0 Yes [id number] 100mg Take 1 Jelena 100 MG oral 4-20 capsule Seybo ld Capsule 00:00: (100 mg - 00 total) by Externa mouth 3 l times daily Aripiprazol 2023-0 Yes 15mg Take 1 Ashlie ey e 15 MG 4-19 tablet (15 Seybol d oral Tablet 00:00: mg total) - 00 by mouth Externa at l bedtime. Aripiprazol 2023-0 Yes 15mg Take 1 Ashlie [...] by mouth Externa at l bedtime. Aripiprazol 2022-0 Yes 15mg Take 1 Ashlie ey e 15 MG 4-19 tablet (15 Seybol d oral Tablet 00:00: mg total) - 00 by mouth Externa at l bedtime. Trazodone 2022-0 Yes [id number] 100mg Take 1 K elsey HCl 100 MG 4-13 tablet Seybold oral Tablet 10:58: (100 mg - 09 total) by Externa mouth at l bedtime Cyanocobala 2022-0 Yes Take by Emanuel sey min 4-13 mouth Seybold (VITAMIN B 10:58: - 12 OR) 09 Externa l Trazodone 2022-0 Yes [id number] 100mg Take 1 K elsey HCl 100 MG 4-10 tablet Seybold oral Tablet 11:00: (100 mg - 07 total) by Externa mouth at l bedtime Cyanocobala 2022-0 Yes Take by Emanuel sey min 4-10 mouth Seybold (VITAMIN B 11:00: - 12 OR) 07 Externa l Orphenadrin 2022-0 Yes 100mg Q.5D Take 1 Emanuel sey e Citrate 4-10 tablet Seybold CR 100 MG 00:00: (100 mg - oral Tablet 00 total) by Ext jonathan 12 Hour mouth 2 l Sustained times Release daily as needed. Propranolol 2022-0 Yes [id number] TAKE ONE Jelena HCl 10 MG 4-10 (1) [facility] oral Tablet 00:00: TABLET(S) - 00 BY MOUTH Externa THREE l TIMES A DAY. Propranolol 2023-0 Yes [id number] TAKE ONE Jelena HCl 10 MG 4-10 [...] Release daily as needed Propranolol 2023-0 Yes [id number] TAKE ONE Jelena HCl 10 MG 4-10 [...] Release daily as needed Propranolol 2023-0 Yes [id number] TAKE ONE Jelena HCl 10 MG 4-10 [...] Sustained times Release daily as needed Orphenadrin 3-0 Yes 100mg Q.5D Take 1 Emanuel sey e Citrate 4-10 tablet Seybold CR 100 MG 00:00: (100 mg - oral Tablet 00 total) by Ext jonathan 12 Hour mouth 2 l Sustained times Release daily as needed. Propranolol 2022-0 2023- No [id number] TAKE ONE Jelena HCl 10 MG 4-10 06-21 (1) Seybold oral Tablet 00:00: 00:00 TABLET(S) - 00 :00 BY MOUTH Externa THREE l TIMES A DAY. Meloxicam 2022-0 Yes [id number] 15mg Take 1 Jelena 15 MG oral 4-06 tablet (15 Sey bold Tablet 00:00: mg total) - 00 by mouth Externa daily l Meloxicam 2022-0 Yes [id number] 15mg Take 1 Jelena 15 MG oral 4-06 tablet (15 Sey bold Tablet 00:00: mg total) - 00 by mouth Externa daily l Meloxicam 2022-0 Yes [id number] 15mg Take 1 Jelena 15 MG oral 4-06 tablet (15 Sey bold Tablet 00:00: mg total) - 00 by mouth Externa daily l Meloxicam 3-0 Yes [id number] 15mg Take 1 Jelena 15 MG oral 4-06 tablet (15 Sey bold Tablet 00:00: mg total) - 00 by mouth Externa daily l Meloxicam 3-0 Yes [id number] 15mg Take 1 Jelena 15 MG oral 4-06 tablet (15 Sey bold Tablet 00:00: mg total) - 00 by mouth Externa daily l Meloxicam 3-0 Yes [id number] 15mg Take 1 Jelena 15 MG oral 4-06 tablet (15 Sey bold Tablet 00:00: mg total) - 00 by mouth Externa daily l Meloxicam 3-0 Yes [id number] 15mg Take 1 Jelena 15 MG oral 4-06 tablet (15 Sey bold Tablet 00:00: mg total) - 00 by mouth Externa daily l Meloxicam 3-0 Yes [id number] 15mg Take 1 Jelena 15 MG oral 4-06 tablet (15 Sey bold Tablet 00:00: mg total) - 00 by mouth Externa daily l Meloxicam 3-0 Yes [id number] 15mg Take 1 Jelena 15 MG oral 4-06 tablet (15 Sey bold Tablet 00:00: mg total) - 00 by mouth Externa daily l Meloxicam 2023-0 2023- No [id number] 15mg Take 1 Jelena 15 MG oral 4-06 09-06 tablet (15 Se ybold Tablet 00:00: 00:00 mg total) - 00 :00 by mouth Externa daily l Duloxetine 2023-0 [...] Exter na mouth l every morning. Meclizine 2022-0 Yes [id number] TAKE ONE Jelena HCl 25 MG 3-24 (1) Seybold oral Tablet 00:00: TABLET(S) - 00 BY MOUTH Externa THREE l TIMES A DAY NEEDED. Meclizine 2022-0 Yes [id number] TAKE ONE Jelena HCl 25 MG 3-24 (1) Seybold oral Tablet 00:00: TABLET(S) - 00 BY MOUTH Externa THREE l TIMES A DAY NEEDED. Meclizine 2022-0 Yes [id number] TAKE ONE Jelena HCl 25 MG 3-24 (1) Seybold oral Tablet 00:00: TABLET(S) - 00 BY MOUTH Externa THREE l TIMES A DAY NEEDED. Losartan 0 Yes [id number] 1{tbl} Take 1 K elsey Potassium-H 3-22 tablet by Sey bold CTZ 50-12.5 00:00: mouth - MG oral 00 daily Externa Tablet l Losartan 2022-0 Yes [id number] 1{tbl} Take 1 K elsey Potassium-H 3-22 tablet by Sey bold CTZ 50-12.5 00:00: mouth - MG oral 00 daily Externa Tablet l Losartan 2022-0 Yes [id number] 1{tbl} Take 1 K elsey Potassium-H 3-22 tablet by Sey bold CTZ 50-12.5 00:00: mouth - MG oral 00 daily Externa Tablet l Losartan 2022-0 Yes [id number] 1{tbl} Take 1 K elsey Potassium-H 3-22 tablet by Sey bold CTZ 50-12.5 00:00: mouth - MG oral 00 daily Externa Tablet l Propranolol 2022-0 2022- No [id number] TAKE ONE Jelena HCl 10 MG 3-10 04-10 (1) [facility] oral Tablet 00:00: 00:00 TABLET(S) - 00 :00 BY MOUTH Externa THREE l TIMES A DAY. Cholecalcif 2022-0 2022- No [id number] 59649W Take 1 Jelena juan 1.25 3-02 04-10 capsule Seybol d MG ([id number] 00:00: 00:00 (50,000 - UT) oral 00 :00 units Externa Capsule total) by l mouth twice a week for 8 doses Trazodone 3-0 Yes [id number] 100mg Take 100 Jelena HCl 100 MG 2-28 mg by Seybold oral Tablet 09:11: mouth at - 07 bedtime Externa l Cyanocobala 3-0 Yes Take by Emanuel sey min 2-28 [...] A l DAY. hydrOXYzine 2023-0 Yes 50mg Q.93020155 Take 1 Jelena HCl 50 MG 2-13 [id number] tablet (50 [facility] oral Tablet 00:00: 3D mg total) - 00 by mouth Externa every 8 l hours as needed. hydrOXYzine 2023-0 Yes 50mg Q.[id number] Take 1 Jelena HCl 50 MG 2-13 [id number] tablet (50 [facility] oral Tablet 00:00: 3D mg total) - 00 by mouth Externa every 8 l hours as needed hydrOXYzine 2023-0 Yes 50mg Q.42556025 Take 1 Jelena HCl 50 MG 2-13 [id number] tablet (50 Sey[facility] oral Tablet 00:00: 3D mg total) - 00 by mouth Externa every 8 l hours as needed hydrOXYzine 2023-0 Yes 50mg Q.34208330 Take 1 Jelena HCl 50 MG 2-13 [id number] tablet (50 [facility] oral Tablet 00:00: 3D mg total) - 00 by mouth Externa every 8 l hours as needed hydrOXYzine 2023-0 Yes 50mg Q.00167200 Take 1 Jelena HCl 50 MG 2-13 [id number] tablet (50 Seybold oral Tablet 00:00: 3D mg total) - 00 by mouth Externa every 8 l hours as needed hydrOXYzine 2023-0 Yes 50mg Q.81790801 Take 1 Jelena HCl 50 MG 2-13 [id number] tablet (50 Seybold oral Tablet 00:00: 3D mg total) - 00 by mouth Externa every 8 l hours as needed hydrOXYzine 2023-0 Yes 50mg Q.68151264 Take 1 Jelena HCl 50 MG 2-13 [id number] tablet (50 Sey[facility] oral Tablet 00:00: 3D mg total) - 00 by mouth Externa every 8 l hours as needed. hydrOXYzine 2023-0 Yes 50mg Q.23026661 Take 1 Jelena HCl 50 MG 2-13 [id number] tablet (50 Seybold oral Tablet 00:00: 3D mg total) - 00 by mouth Externa every 8 l hours as needed. Losartan 2023-0 Yes [id number] 1{tbl} Take 1 K elsey Potassium-H 2-10 tablet by Sey bold CTZ 50-12.5 00:00: mouth - MG oral 00 daily Externa Tablet l Meclizine 2023-0 Yes [id number] 25mg Q.14651971 Take 1 Jelena HCl 25 MG 2-10 [id number] tablet (25 Seybold oral Tablet 00:00: 3D mg total) - 00 by mouth 3 Externa times l daily as needed Propranolol 2023-0 Yes [id number] 10mg Take 1 Jelena HCl 10 MG 2-10 tablet (10 Seyb old oral Tablet 00:00: mg total) - 00 by mouth 3 Externa times l daily Losartan 2022-0 Yes [id number] 1{tbl} Take 1 K elsey Potassium-H 2-10 tablet by Lit romano CTZ 50-12.5 00:00: mouth - MG oral 00 daily Externa Tablet l Meclizine 0 Yes [id number] 25mg Q.64686934 Take 1 Jelena HCl 25 MG 2-10 [id number] tablet (25 Seybold oral Tablet 00:00: 3D mg total) - 00 by mouth 3 Externa times l daily as needed Propranolol Yes [id number] 10mg Take 1 Jelena HCl 10 MG 2-10 tablet (10 Seyb old oral Tablet 00:00: mg total) - 00 by mouth 3 Externa times l daily Doxycycline Yes [id number] 100mg Take 1 Jelena Hyclate 100 -31 tablet Seybol d MG oral 00:00: (100 mg - Tablet 00 total) by Externa mouth 2 l times daily Doxycycline 2022-0 2022- No [id number] 100mg Take 1 Jelena Hyclate 100 -31 02-28 tablet Seybo ld MG oral 00:00: 00:00 (100 mg - Tablet 00 :00 total) by Externa mouth 2 l times daily Trulicity Yes [id number] .75mg Inject Jelena 0.75 1-28 0.75 mg Seybold MG/0.5ML 00:00: into the - subcutaneou 00 skin once Ext jonathan s Solution a week l Pen-injecto r Trulicity Yes [id number] .75mg Inject Jelena 0.75 1-28 0.75 mg Seybold MG/0.5ML 00:00: into the - subcutaneou 00 skin once Ext jonathan s Solution a week l Pen-injecto r Trulicity 2022- Yes [id number] .75mg Inject Jelnea 0.75 1-28 0.75 mg Seybold MG/0.5ML 00:00: into the - subcutaneou 00 skin once Ext jonathan s Solution a week l Pen-injecto r Trulicity Yes [id number] .75mg Inject Jelena 0.75 1-28 0.75 mg Seybold MG/0.5ML 00:00: into the - subcutaneou 00 skin once Ext jonathan s Solution a week l Pen-injecto r Aripiprazol 2022- No Kelse y e 20 MG 1-25 -25 Seybold oral Tablet 11:11: 00:00 - 39 :00 Externa l Aripiprazol 2022- No [id number] 10mg Take 10 mg Jelena e 10 MG 1-25 -25 by mouth 2 Seybo ld oral Tablet 11:11: 00:00 times - 26 :00 daily Externa l Trazodone Yes [id number] 100mg Take 100 Jelena HCl 100 MG 1-25 mg by Seybold oral Tablet 10:31: mouth at - 22 bedtime Externa l Cyanocobala Yes Take by Emanuel sey min 1-25 mouth Seybold (VITAMIN B 10:31: - 12 OR) 22 Externa l Trazodone Yes [id number] 100mg Take 100 Jelena HCl 100 MG 1-25 mg by Seybold oral Tablet 10:31: mouth at - 22 bedtime Externa l Cyanocobala Yes Take by Emanuel sey min 1-25 mouth Seybold (VITAMIN B 10:31: - 12 OR) 22 Externa l Gabapentin Yes [id number] 100mg Take 1 Jelena 100 MG oral 1-25 capsule Seybo ld Capsule 00:00: (100 mg - 00 total) by Externa mouth 3 l times daily Ondansetron Yes [id number] 4mg Q.15648153 Take 1 Jelena (ZOFRAN) 4 1-25 [id number] tablet (4 Seybold MG oral 00:00: 3D mg total) - TABLET 00 by mouth Externa DISPERSIBLE every 8 l hours as needed for nausea Celecoxib Yes [id number] 200mg Take 1 Jelena (CeleBREX) 1-25 capsule Seybol d 200 MG oral 00:00: (200 mg - Capsule 00 total) by Externa mouth 2 l times daily Gabapentin Yes [id number] 100mg Take 1 Jelena 100 MG oral 1-25 capsule Seybo ld Capsule 00:00: (100 mg - 00 total) by Externa mouth 3 l times daily Ondansetron 3-0 Yes [id number] 4mg Q.[id number] Take 1 Jelena (ZOFRAN) 4 1-25 [id number] tablet (4 Seybold MG oral 00:00: 3D mg total) - TABLET 00 by mouth Externa DISPERSIBLE every 8 l hours as needed for nausea Celecoxib 3-0 Yes [id number] 200mg Take 1 Jelena (CeleBREX) 1-25 capsule Seybol d 200 MG oral 00:00: (200 mg - Capsule 00 total) by Externa mouth 2 l times daily Gabapentin 2022-0 Yes [id number] 100mg Take 1 Jelena 100 MG oral 1-25 capsule Seybo ld Capsule 00:00: (100 mg - 00 total) by Externa mouth 3 l times daily Ondansetron 2022-0 Yes [id number] 4mg Q.[id number] Take 1 Jelena (ZOFRAN) 4 1-25 [id number] tablet (4 Seybold MG oral 00:00: 3D mg total) - TABLET 00 by mouth Externa DISPERSIBLE every 8 l hours as needed for nausea Gabapentin 2022-0 Yes [id number] 100mg Take 1 Jelena 100 MG oral 1-25 capsule Seybo ld Capsule 00:00: (100 mg - 00 total) by Externa mouth 3 l times daily Ondansetron 2022-0 Yes [id number] 4mg Q.[id number] Take 1 Jelena (ZOFRAN) 4 1-25 [id number] tablet (4 Seybold MG oral 00:00: 3D mg total) - TABLET 00 by mouth Externa DISPERSIBLE every 8 l hours as needed for nausea Gabapentin 3-0 Yes [id number] 100mg Take 1 Jelena 100 MG oral 1-25 capsule Seybo ld Capsule 00:00: (100 mg - 00 total) by Externa mouth 3 l times daily Ondansetron 3-0 Yes [id number] 4mg Q.[id number] Take 1 Jelena (ZOFRAN) 4 1-25 [id number] tablet (4 Seybold MG oral 00:00: 3D mg total) - TABLET 00 by mouth Externa DISPERSIBLE every 8 l hours as needed for nausea Ondansetron 2023-0 Yes [id number] 4mg Q.27435110 Take 1 Jelena (ZOFRAN) 4 1-25 [id number] tablet (4 Seybold MG oral 00:00: 3D mg total) - TABLET 00 by mouth Externa DISPERSIBLE every 8 l hours as needed for nausea Ondansetron 3-0 Yes [id number] 4mg Q.[id number] Take 1 Jelena (ZOFRAN) 4 1-25 [id number] tablet (4 Seybold MG oral 00:00: 3D mg total) - TABLET 00 by mouth Externa DISPERSIBLE every 8 l hours as needed for nausea Ondansetron 2022-0 Yes [id number] 4mg Q.[id number] Take 1 Jelena (ZOFRAN) 4 1-25 [id number] tablet (4 Seybold MG oral 00:00: 3D mg total) - TABLET 00 by mouth Externa DISPERSIBLE every 8 l hours as needed for nausea Ondansetron 2022-0 Yes [id number] 4mg Q.[id number] Take 1 Jelena (ZOFRAN) 4 1-25 [id number] tablet (4 Seybold MG oral 00:00: 3D mg total) - TABLET 00 by mouth Externa DISPERSIBLE every 8 l hours as needed for nausea Ondansetron 2022-0 Yes [id number] 4mg Q.[id number] Take 1 Jelena (ZOFRAN) 4 1-25 [id number] tablet (4 Seybold MG oral 00:00: 3D mg total) - TABLET 00 by mouth Externa DISPERSIBLE every 8 l hours as needed for nausea Ondansetron 3-0 Yes [id number] 4mg Q.[id number] Take 1 Jelena (ZOFRAN) 4 1-25 [id number] tablet (4 Seybold MG oral 00:00: 3D mg total) - TABLET 00 by mouth Externa DISPERSIBLE every 8 l hours as needed for nausea Ondansetron 3-0 Yes [id number] 4mg Q.[id number] Take 1 Jelena (ZOFRAN) 4 1-25 [id number] tablet (4 Seybold MG oral 00:00: 3D mg total) - TABLET 00 by mouth Externa DISPERSIBLE every 8 l hours as needed for nausea hydroCHLORO 2023-0 Yes [id number] 12.5mg Take 1 Jelena thiazide 1-25 capsule Seybold 12.5 MG 00:00: (12.5 mg - oral 00 total) by Externa Capsule mouth l daily Ondansetron 2022-0 Yes [id number] 4mg Q.[id number] Take 1 Jelena (ZOFRAN) 4 1-25 [id number] tablet (4 Seybold MG oral 00:00: 3D mg total) - TABLET 00 by mouth Externa DISPERSIBLE every 8 l hours as needed for nausea Tirzepatide 0 Yes [id number] 2.5mg Inject 0.5 Jelena (Mounjaro) 1-25 mL (2.5 mg Sey bold 2.5 00:00: total) - MG/0.5ML 00 into the Externa subcutaneou skin once l s Solution a week Pen-injecto r Celecoxib 2022-0 Yes [id number] 200mg Take 1 Jelena (CeleBREX) 1-25 capsule Seybol d 200 MG oral 00:00: (200 mg - Capsule 00 total) by Externa mouth 2 l times daily hydroCHLORO 2022-0 2022- No [id number] 12.5mg Take 1 Jelena thiazide 1-25 02-10 [...] Implant 00 Externa l Docusate 2022-0 Yes [id number] 100mg Take 1 Ke lsey Sodium 1-13 capsule Seybold (Colace) 00:00: (100 mg - 100 MG oral 00 total) by Ext jonathan Capsule mouth l daily Ferrous 2022-0 Yes [id number] 325mg Take 1 Emanuel sey Sulfate 1-13 tablet Seybold (Iron) 325 00:00: (325 mg - (65 Fe) MG 00 total) by Exte rna oral Tablet mouth l daily (with breakfast) Docusate 2022-0 Yes [id number] 100mg Take 1 Ke lsey Sodium 1-13 capsule Seybold (Colace) 00:00: (100 mg - 100 MG oral 00 total) by Ext jonathan Capsule mouth l daily Ferrous 2022-0 Yes [id number] 325mg Take 1 Emanuel sey Sulfate 1-13 tablet Seybold (Iron) 325 00:00: (325 mg - (65 Fe) MG 00 total) by Exte rna oral Tablet mouth l daily (with breakfast) Docusate 2022-0 Yes [id number] 100mg Take 1 Ke lsey Sodium 1-13 capsule Seybold (Colace) 00:00: (100 mg - 100 MG oral 00 total) by Ext jonathan Capsule mouth l daily Ferrous 2022-0 Yes [id number] 325mg Take 1 Emanuel sey Sulfate 1-13 tablet Seybold (Iron) 325 00:00: (325 mg - (65 Fe) MG 00 total) by Exte rna oral Tablet mouth l daily (with breakfast) Docusate 2022-0 Yes [id number] 100mg Take 1 Ke lsey Sodium 1-13 capsule Seybold (Colace) 00:00: (100 mg - 100 MG oral 00 total) by Ext jonathan Capsule mouth l daily Ferrous 2022-0 Yes [id number] 325mg Take 1 Emanuel sey Sulfate 1-13 tablet Seybold (Iron) 325 00:00: (325 mg - (65 Fe) MG 00 total) by Exte rna oral Tablet mouth l daily (with breakfast) Docusate 0 Yes [id number] 100mg Take 1 Ke lsey Sodium 1-13 capsule Seybold (Colace) 00:00: (100 mg - 100 MG oral 00 total) by Ext jonathan Capsule mouth l daily Ferrous 2022-0 Yes [id number] 325mg Take 1 Emanuel sey Sulfate 1-13 tablet Seybold (Iron) 325 00:00: (325 mg - (65 Fe) MG 00 total) by Exte rna oral Tablet mouth l daily (with breakfast) Docusate 2022-0 Yes [id number] 100mg Take 1 Ke lsey Sodium 1-13 capsule Seybold (Colace) 00:00: (100 mg - 100 MG oral 00 total) by Ext jonathan Capsule mouth l daily Ferrous 2022-0 Yes [id number] 325mg Take 1 Emanuel sey Sulfate 1-13 tablet Seybold (Iron) 325 00:00: (325 mg - (65 Fe) MG 00 total) by Exte rna oral Tablet mouth l daily (with breakfast) Docusate 2022-0 Yes [id number] 100mg Take 1 Ke lsey Sodium 1-13 capsule Seybold (Colace) 00:00: (100 mg - 100 MG oral 00 total) by Ext jonathan Capsule mouth l daily Ferrous 2022-0 Yes [id number] 325mg Take 1 Emanuel sey Sulfate 1-13 tablet Seybold (Iron) 325 00:00: (325 mg - (65 Fe) MG 00 total) by Exte rna oral Tablet mouth l daily (with breakfast) Docusate 0 Yes [id number] 100mg Take 1 Ke lsey Sodium 1-13 capsule Seybold (Colace) 00:00: (100 mg - 100 MG oral 00 total) by Ext jonathan Capsule mouth l daily Ferrous 2022-0 Yes [id number] 325mg Take 1 Emanuel sey Sulfate 1-13 tablet Seybold (Iron) 325 00:00: (325 mg - (65 Fe) MG 00 total) by Exte rna oral Tablet mouth l daily (with breakfast) Docusate 0 Yes [id number] 100mg Take 1 Ke lsey Sodium 1-13 capsule Seybold (Colace) 00:00: (100 mg - 100 MG oral 00 total) by Ext jonathan Capsule mouth l daily Ferrous 0 Yes [id number] 325mg Take 1 Emanuel sey Sulfate 1-13 tablet Seybold (Iron) 325 00:00: (325 mg - (65 Fe) MG 00 total) by Exte rna oral Tablet mouth l daily (with breakfast) Docusate 0 Yes [id number] 100mg Take 1 Ke lsey Sodium 1-13 capsule Seybold (Colace) 00:00: (100 mg - 100 MG oral 00 total) by Ext jonathan Capsule mouth l daily Docusate 0 Yes [id number] 100mg Take 1 Ke lsey Sodium 1-13 capsule Seybold (Colace) 00:00: (100 mg - 100 MG oral 00 total) by Ext jonathan Capsule mouth l daily Docusate 0 Yes [id number] 100mg Take 1 Ke lsey Sodium 1-13 capsule Seybold (Colace) 00:00: (100 mg - 100 MG oral 00 total) by Ext jonathan Capsule mouth l daily Ferrous 2022-0 Yes [id number] 325mg Take 1 Emanuel sey Sulfate 1-13 tablet Seybold (Iron) 325 00:00: (325 mg - (65 Fe) MG 00 total) by Exte rna oral Tablet mouth l daily (with breakfast) Docusate 2022-0 Yes [id number] 100mg Take 1 Ke lsey Sodium 1-13 capsule Seybold (Colace) 00:00: (100 mg - 100 MG oral 00 total) by Ext jonathan Capsule mouth l daily Nitrofurant 2022- No [id number] 100mg Take 1 Jelena oin Monohyd 1-13 [...] 1-11 00:00: 00 LYRICA 150 2019-08 Yes [id number] Take 1 [facility] mg capsule 2-21 capsule by ity of 00:00: mouth [place] 00 twice a Medical day for Branch neuropathi c pain as directed by physician. LYRICA 150 2019-08 Yes [id number] Take 1 [facility] mg capsule 2-21 capsule by ity of 00:00: mouth [place] 00 twice a Medical day for Branch neuropathi c pain as directed by physician. LYRICA 150 2019-08 Yes [id number] Take 1 [facility] mg capsule 2-21 capsule by ity of 00:00: mouth [place] 00 twice a Medical day for Branch neuropathi c pain as directed by physician. LYRICA 150 2019-08 Yes [id number] Take 1 [facility] mg capsule 2-21 capsule by ity of 00:00: mouth [place] 00 twice a Medical day for Branch neuropathi c pain as directed by physician. LYRICA 150 2019-08 Yes [id number] Take 1 [facility] mg capsule 2-21 capsule by ity of 00:00: mouth [place] 00 twice a Medical day for Branch neuropathi c pain as directed by physician. LYRICA 150 2019-08 Yes [id number] Take 1 [facility] mg capsule 2-21 capsule by ity of 00:00: mouth [place] 00 twice a Medical day for Branch neuropathi c pain as directed by physician. LYRICA 150 2019-08 Yes [id number] Take 1 [facility] mg capsule 2-21 capsule [...] 58 :00 times Medical daily. Branch aripiprazol 2019-0 [...] times Medical daily. Branch ofloxacin 2020-0 Yes [id number] 5[drp] Place 5 [facility] 0.3 % otic 9-17 [id number] Drops in ity of drops 00:00: both ears [place] 00 3 (three) Medical times Branch daily. ofloxacin 2020-0 Yes [id number] 5[drp] Place 5 [facility] 0.3 % otic 9-17 [id number] Drops in ity of drops 00:00: both ears [place] 00 3 (three) Medical times Branch daily. ofloxacin 2020-0 Yes [id number] 5[drp] Place 5 [facility] 0.3 % otic 9-17 [id number] Drops in ity of drops 00:00: both ears [place] 00 3 (three) Medical times Branch daily. ofloxacin 2020-0 Yes [id number] 5[drp] Place 5 [facility] 0.3 % otic 9-17 [id number] Drops in ity of drops 00:00: both ears [place] 00 3 (three) Medical times Branch daily. ofloxacin 2020-0 Yes [id number] 5[drp] Place 5 [facility] 0.3 % otic 9-17 [id number] Drops in ity of drops 00:00: both ears [place] 00 3 (three) Medical times Branch daily. ofloxacin 2020-0 Yes [id number] 5[drp] Place 5 [facility] 0.3 % otic 9-17 [id number] Drops in ity of drops 00:00: both ears [place] 00 3 (three) Medical times Branch daily. ofloxacin 2020-0 Yes [id number] 5[drp] Place 5 [facility] 0.3 % otic 9-17 [id number] Drops in ity of drops 00:00: both ears [place] 00 3 (three) Medical times Branch daily. ofloxacin 2020-0 Yes [id number] 5[drp] Place 5 [facility] 0.3 % otic 9-17 [id number] Drops in ity of drops 00:00: both ears [place] 00 3 (three) Medical times Branch daily. ofloxacin 2020-0 Yes [id number] 5[drp] Place 5 [facility] 0.3 % otic 9-17 [id number] Drops in ity of drops 00:00: both ears [place] 00 3 (three) Medical times Branch daily. ofloxacin 2020-0 Yes [id number] 5[drp] Place 5 [facility] 0.3 % otic 9-17 [id number] Drops in ity of drops 00:00: both ears [place] 00 3 (three) Medical times Branch daily. ofloxacin 2020-0 Yes [id number] 5[drp] Place 5 [facility] 0.3 % otic 9-17 [id number] Drops in ity of drops 00:00: both ears [place] 00 3 (three) Medical times Branch daily. ofloxacin 2020-0 Yes [id number] 5[drp] Place 5 [facility] 0.3 % otic 9-17 [id number] Drops in ity of drops 00:00: both ears [place] 00 3 (three) [facility] times [facility] daily. ofloxacin 2020-0 Yes [id number] 5[drp] Place 5 [facility] 0.3 % otic 9-17 84943 Drops in ity of drops 00:00: both ears [place] 00 3 (three) [facility] times [facility] daily. ofloxacin 2020-0 Yes [id number] 5[drp] Place 5 [facility] 0.3 % otic 9-17 74979 Drops in ity of drops 00:00: both ears [place] 00 3 (three) Medical times [facility] daily. ofloxacin 2020-0 Yes [id number] 5[drp] Place 5 [facility] 0.3 % otic 9-17 [id number] Drops in ity of drops 00:00: both ears [place] 00 3 (three) Medical times [facility] daily. [...] Indication s: acute pain metoprolol 2020-0 Yes [id number] 50mg Take 1 Un nneka succinate 7-09 tablet by [facility] o f XL 50 mg 24 00:00: mouth [place] hr tablet 00 daily. [facility] hydroCHLORO 2019-0 Yes [id number] 25mg Take 1 [facility] thiazide 25 7-09 tablet by [facility] of mg tablet 00:00: mouth [place] 00 daily. [facility] baclofen 10 2019-0 Yes [id number] 10mg Take 1 [facility] mg tablet 03-08 [id number] tablet by [facility] of 00:00: mouth 3 [place] 00 (three) Medical times Branch daily as needed for Pain (scale 4-6). metoprolol 2020-0 Yes [id number] 50mg Take 1 [facility] nneka succinate 7-09 tablet by [facility] o f XL 50 mg 24 00:00: mouth [place] hr tablet 00 daily. [facility] hydroCHLORO 2020-0 Yes [id number] 25mg Take 1 [facility] thiazide 25 7-09 tablet by [facility] mg tablet 00:00: mouth [place] 00 daily. [facility] baclofen 10 2019-0 Yes [id number] 10mg Take 1 [facility] mg tablet 03-08 [id number] tablet by [facility] of 00:00: mouth 3 [place] 00 (three) Medical times Branch daily as needed for Pain (scale 4-6). metoprolol 2020-0 Yes [id number] 50mg Take 1 [facility] nneka succinate 7-09 tablet by [facility] o f XL 50 mg 24 00:00: mouth [place] hr tablet 00 daily. [facility] hydroCHLORO 2020-0 Yes [id number] 25mg Take 1 [facility] thiazide 25 7-09 tablet by [facility] of mg tablet 00:00: mouth [place] 00 daily. [facility] baclofen 10 2020-0 Yes [id number] 10mg Take 1 [facility] mg tablet 7 [id number] tablet by [facility] of 00:00: mouth 3 [place] 00 (three) Medical times Branch daily as needed for Pain (scale 4-6). metoprolol 2020-0 Yes [id number] 50mg Take 1 [facility] nneka succinate 7-09 tablet by [facility] o f XL 50 mg 24 00:00: mouth [place] hr tablet 00 daily. [facility] hydroCHLORO 2020-0 Yes [id number] 25mg Take 1 [facility] thiazide 25 7-09 tablet by [facility] of mg tablet 00:00: mouth [place] 00 daily. [facility] baclofen 10 2019-0 Yes [id number] 10mg Take 1 [facility] mg tablet 03-08 [id number] tablet by [facility] of 00:00: mouth 3 [place] 00 (three) Medical times Branch daily as needed for Pain (scale 4-6). metoprolol 2020-0 Yes [id number] 50mg Take 1 [facility] nneka succinate 7-09 tablet by [facility] o f XL 50 mg 24 00:00: mouth [place] hr tablet 00 daily. [facility] hydroCHLORO 2020-0 Yes [id number] 25mg Take 1 [facility] thiazide 25 7-09 tablet by [facility] of mg tablet 00:00: mouth [place] 00 daily. [facility] baclofen 10 2019-0 Yes [id number] 10mg Take 1 [facility] mg tablet 03-08 [id number] tablet by [facility] of 00:00: mouth 3 [place] 00 (three) Medical times Branch daily as needed for Pain (scale 4-6). metoprolol 2020-0 Yes [id number] 50mg Take 1 [facility] nneka succinate 7-09 tablet by [facility] o f XL 50 mg 24 00:00: mouth [place] hr tablet 00 daily. [facility] hydroCHLORO 2020-0 Yes [id number] 25mg Take 1 [facility] thiazide 25 7-09 tablet by [facility] of mg tablet 00:00: mouth [place] 00 daily. [facility] baclofen 10 2020-0 Yes [id number] 10mg Take 1 [facility] mg tablet 7- [id number] tablet by [facility] of 00:00: mouth 3 [place] 00 (three) Medical times Branch daily as needed for Pain (scale 4-6). metoprolol 2020-0 Yes [id number] 50mg Take 1 [facility] nneka succinate 7-09 tablet by [facility] o f XL 50 mg 24 00:00: mouth [place] hr tablet 00 daily. [facility] hydroCHLORO 2020-0 Yes [id number] 25mg Take 1 [facility] thiazide 25 7-09 tablet by [facility] of mg tablet 00:00: mouth [place] 00 daily. [facility] baclofen 10 2020-0 Yes [id number] 10mg Take 1 [facility] mg tablet 7 [id number] tablet by [facility] of 00:00: mouth 3 [place] 00 (three) Medical times Branch daily as needed for Pain (scale 4-6). metoprolol 2020-0 Yes [id number] 50mg Take 1 [facility] nneka succinate 7-09 tablet by [facility] o f XL 50 mg 24 00:00: mouth [place] hr tablet 00 daily. [facility] hydroCHLORO 2020-0 Yes [id number] 25mg Take 1 [facility] thiazide 25 7-09 tablet by [facility] of mg tablet 00:00: mouth [place] 00 daily. [facility] baclofen 10 2019-0 Yes [id number] 10mg Take 1 [facility] mg tablet 03-08 [id number] tablet by [facility] of 00:00: mouth 3 [place] 00 (three) Medical times Branch daily as needed for Pain (scale 4-6). metoprolol 2020-0 Yes [id number] 50mg Take 1 [facility] nneka succinate 7-09 tablet by [facility] o f XL 50 mg 24 00:00: mouth [place] hr tablet 00 daily. [facility] hydroCHLORO 2020-0 Yes [id number] 25mg Take 1 [facility] thiazide 25 7-09 tablet by [facility] of mg tablet 00:00: mouth [place] 00 daily. [facility] baclofen 10 2019-0 Yes [id number] 10mg Take 1 [facility] mg tablet 7 [id number] tablet by [facility] of 00:00: mouth 3 [place] 00 (three) Medical times Branch daily as needed for Pain (scale 4-6). metoprolol 2020-0 Yes [id number] 50mg Take 1 [facility] nneka succinate 7-09 tablet by [facility] o f XL 50 mg 24 00:00: mouth [place] hr tablet 00 daily. [facility] hydroCHLORO 2020-0 Yes [id number] 25mg Take 1 [facility] thiazide 25 7-09 tablet by [facility] of mg tablet 00:00: mouth [place] 00 daily. [facility] baclofen 10 2019-0 Yes [id number] 10mg Take 1 [facility] mg tablet 03-08 [id number] tablet by [facility] of 00:00: mouth 3 [place] 00 (three) Medical times Branch daily as needed for Pain (scale 4-6). metoprolol 2020-0 Yes [id number] 50mg Take 1 [facility] nneka succinate 7-09 tablet by [facility] o f XL 50 mg 24 00:00: mouth [place] hr tablet 00 daily. [facility] hydroCHLORO 2020-0 Yes [id number] 25mg Take 1 [facility] thiazide 25 7-09 tablet by [facility] of mg tablet 00:00: mouth [place] 00 daily. [facility] baclofen 10 2020-0 Yes [id number] 10mg Take 1 [facility] mg tablet 03-08 [id number] tablet by [facility] of 00:00: mouth 3 [place] 00 (three) Medical times Branch daily as needed for Pain (scale 4-6). metoprolol 2020-0 Yes [id number] 50mg Take 1 [facility] nneka succinate 7-09 tablet by [facility] o f XL 50 mg 24 00:00: mouth [place] hr tablet 00 daily. [facility] hydroCHLORO 2020-0 Yes [id number] 25mg Take 1 [facility] thiazide 25 7-09 tablet by [facility] mg tablet 00:00: mouth [place] 00 daily. [facility] baclofen 10 2020-0 Yes [id number] 10mg Take 1 [facility] mg tablet 03-08 [id number] tablet by [facility] of 00:00: mouth 3 [place] 00 (three) Medical times Branch daily as needed for Pain (scale 4-6). metoprolol 2020-0 Yes [id number] 50mg Take 1 [facility] nneka succinate 7-09 tablet by [facility] o f XL 50 mg 24 00:00: mouth [place] hr tablet 00 daily. [facility] hydroCHLORO 2020-0 Yes [id number] 25mg Take 1 [facility] thiazide 25 7-09 tablet by [facility] of mg tablet 00:00: mouth [place] 00 daily. [facility] baclofen 10 2020-0 Yes [id number] 10mg Take 1 [facility] mg tablet 03-08 [id number] tablet by [facility] of 00:00: mouth 3 [place] 00 (three) Medical times Branch daily as needed for Pain (scale 4-6). metoprolol 2020-0 Yes [id number] 50mg Take 1 [facility] nneka succinate 7-09 tablet by [facility] o f XL 50 mg 24 00:00: mouth [place] hr tablet 00 daily. [facility] hydroCHLORO 2020-0 Yes [id number] 25mg Take 1 [facility] thiazide 25 7-09 tablet by [facility] of mg tablet 00:00: mouth [place] 00 daily. [facility] baclofen 10 2020-0 Yes [id number] 10mg Take 1 [facility] mg tablet 7- [id number] tablet by [facility] of 00:00: mouth 3 [place] 00 (three) Medical times Branch daily as needed for Pain (scale 4-6). metoprolol 2020-0 Yes [id number] 50mg Take 1 [facility] nneka succinate 7-09 tablet by [facility] o f XL 50 mg 24 00:00: mouth [place] hr tablet 00 daily. [facility] hydroCHLORO 2020-0 Yes [id number] 25mg Take 1 [facility] thiazide 25 7-09 tablet by [facility] of mg tablet 00:00: mouth [place] 00 daily. [facility] baclofen 10 2019-0 Yes [id number] 10mg Take 1 [facility] mg tablet 03-08 [id number] tablet by [facility] of 00:00: mouth 3 [place] 00 (three) Medical times Branch daily as needed for Pain (scale 4-6). metoprolol 2020-0 Yes [id number] 50mg Take 1 [facility] nneka succinate 7-09 tablet by [facility] o f XL 50 mg 24 00:00: mouth [place] hr tablet 00 daily. [facility] hydroCHLORO 2020-0 Yes [id number] 25mg Take 1 [facility] thiazide 25 7-09 tablet by [facility] of mg tablet 00:00: mouth [place] 00 daily. [facility] baclofen 10 2019-0 Yes [id number] 10mg Take 1 [facility] mg tablet 03-08 [id number] tablet by [facility] of 00:00: mouth 3 [place] 00 (three) Medical times Branch daily as needed for Pain (scale 4-6). metoprolol 2020-0 Yes [id number] 50mg Take 1 [facility] nneka succinate 7-09 tablet by [facility] o f XL 50 mg 24 00:00: mouth [place] hr tablet 00 daily. [facility] hydroCHLORO 2020-0 Yes [id number] 25mg Take 1 [facility] thiazide 25 7-09 tablet by [facility] of mg tablet 00:00: mouth [place] 00 daily. [facility] baclofen 10 2020-0 Yes [id number] 10mg Take 1 [facility] mg tablet 7- [id number] tablet by [facility] of 00:00: mouth 3 [place] 00 (three) Medical times Branch daily as needed for Pain (scale 4-6). metoprolol 2020-0 Yes [id number] 50mg Take 1 [facility] nneka succinate 7-09 tablet by [facility] o f XL 50 mg 24 00:00: mouth [place] hr tablet 00 daily. [facility] hydroCHLORO 2020-0 Yes [id number] 25mg Take 1 [facility] thiazide 25 7-09 tablet by [facility] of mg tablet 00:00: mouth [place] 00 daily. [facility] baclofen 10 2020-0 Yes [id number] 10mg Take 1 [facility] mg tablet 7- [id number] tablet by [facility] of 00:00: mouth 3 [place] 00 (three) Medical times Branch daily as needed for Pain (scale 4-6). metoprolol 2020-0 Yes [id number] 50mg Take 1 [facility] nneka succinate 7-09 tablet by [facility] o f XL 50 mg 24 00:00: mouth [place] hr tablet 00 daily. [facility] hydroCHLORO 2020-0 Yes [id number] 25mg Take 1 [facility] thiazide 25 7-09 tablet by [facility] of mg tablet 00:00: mouth [place] 00 daily. [facility] baclofen 10 2019-0 Yes [id number] 10mg Take 1 [facility] mg tablet 7 [id number] tablet by [facility] of 00:00: mouth 3 [place] 00 (three) Medical times Branch daily as needed for Pain (scale 4-6). metoprolol 2020-0 Yes [id number] 50mg Take 1 [facility] nneka succinate 7-09 tablet by [facility] o f XL 50 mg 24 00:00: mouth [place] hr tablet 00 daily. [facility] hydroCHLORO 2020-0 Yes [id number] 25mg Take 1 [facility] thiazide 25 7-09 tablet by [facility] of mg tablet 00:00: mouth [place] 00 daily. [facility] baclofen 10 2019-0 Yes [id number] 10mg Take 1 [facility] mg tablet 7 [id number] tablet by [facility] of 00:00: mouth 3 [place] 00 (three) Medical times Branch daily as needed for Pain (scale 4-6). metoprolol 2020-0 Yes [id number] 50mg Take 1 [facility] nneka succinate 7-09 tablet by [facility] o f XL 50 mg 24 00:00: mouth [place] hr tablet 00 daily. [facility] hydroCHLORO 2020-0 Yes [id number] 25mg Take 1 [facility] thiazide 25 7-09 tablet by [facility] of mg tablet 00:00: mouth [place] 00 daily. [facility] baclofen 10 2020-0 Yes [id number] 10mg Take 1 [facility] mg tablet 03-08 [id number] tablet by [facility] of 00:00: mouth 3 [place] 00 (three) Medical times Branch daily as needed for Pain (scale 4-6). metoprolol 2020-0 Yes [id number] 50mg Take 1 [facility] nneka succinate 7-09 tablet by [facility] o f XL 50 mg 24 00:00: mouth [place] hr tablet 00 daily. [facility] hydroCHLORO 2020-0 Yes [id number] 25mg Take 1 [facility] thiazide 25 7-09 tablet by [facility] of mg tablet 00:00: mouth [place] 00 daily. [facility] baclofen 10 2020-0 Yes [id number] 10mg Take 1 [facility] mg tablet 03-08 [id number] tablet by [facility] of 00:00: mouth 3 [place] 00 (three) Medical times Branch daily as needed for Pain (scale 4-6). metoprolol 2020-0 Yes [id number] 50mg Take 1 [facility] nneka succinate 7-09 tablet by [facility] o f XL 50 mg 24 00:00: mouth [place] hr tablet 00 daily. [facility] hydroCHLORO 2020-0 Yes [id number] 25mg Take 1 [facility] thiazide 25 7-09 tablet by [facility] of mg tablet 00:00: mouth [place] 00 daily. [facility] baclofen 10 2020-0 Yes [id number] 10mg Take 1 [facility] mg tablet 03-08 [id number] tablet by [facility] of 00:00: mouth 3 [place] 00 (three) Medical times Branch daily as needed for Pain (scale 4-6). metoprolol 2020-0 Yes [id number] 50mg Take 1 [facility] nneka succinate 7-09 tablet by [facility] o f XL 50 mg 24 00:00: mouth [place] hr tablet 00 daily. [facility] hydroCHLORO 2020-0 Yes [id number] 25mg Take 1 [facility] thiazide 25 7-09 tablet by [facility] of mg tablet 00:00: mouth [place] 00 daily. [facility] baclofen 10 2020-0 Yes [id number] 10mg Take 1 [facility] mg tablet 03-08 [id number] tablet by [facility] of 00:00: mouth 3 [place] 00 (three) Medical times Branch daily as needed for Pain (scale 4-6). metoprolol 2020-0 Yes [id number] 50mg Take 1 [facility] nneka succinate 7-09 tablet by [facility] o f XL 50 mg 24 00:00: mouth [place] hr tablet 00 daily. [facility] hydroCHLORO 2020-0 Yes [id number] 25mg Take 1 [facility] thiazide 25 03-08 tablet by [facility] of mg tablet 00:00: mouth [place] 00 daily. [facility] baclofen 10 2020-0 Yes [id number] 10mg Take 1 [facility] mg tablet 03-08 [id number] tablet by [facility] of 00:00: mouth 3 [place] 00 (three) Medical times Branch daily as needed for Pain (scale 4-6). DULOXETINE 2020-0 Yes 60mg Take 60 mg U nivers HCL 2-25 by mouth 3 ity of (CYMBALTA 14:58: (three) [place] ORAL) 32 times Medical daily. Branch VITAMIN B 2020-0 Yes Take by Un[facility] rs COMPLEX 2-25 mouth. ity of ORAL 14:58: [place] [address] [facility] traZODONE 2020-0 Yes 100mg Take 100 [facility] vers 100 mg 2-25 mg by ity of tablet 14:58: mouth at [place] [address] bedtime. Medical [facility] benztropine 2020-0 Yes 1mg Take 1 mg U nivers 1 mg tablet 2-25 by mouth ity of 14:58: daily. [place] [address] [facility] DULOXETINE 2020-0 Yes 60mg Take 60 mg U nivers HCL 2-25 by mouth 3 ity of (CYMBALTA 14:58: (three) [place] ORAL) 32 times Medical daily. Branch VITAMIN B 2020-0 Yes Take by Unive rs COMPLEX 2-25 mouth. ity of ORAL 14:58: [place] [address] [facility] traZODONE 2020-0 Yes 100mg Take 100 [facility] vers 100 mg 2-25 mg by ity of tablet 14:58: mouth at [place] [address] bedtime. [facility] benztropine 2020-0 Yes 1mg Take 1 mg U nivers 1 mg tablet 2-25 by mouth ity of 14:58: daily. [place] [address] [facility] DULOXETINE 2020-0 Yes 60mg Take 60 mg U nivers HCL 2-25 by mouth 3 ity of (CYMBALTA 14:58: (three) [place] ORAL) 32 times Medical daily. Branch VITAMIN B 2020-0 Yes Take by Un[facility] rs COMPLEX 2-25 mouth. ity of ORAL 14:58: [place] [address] [facility] traZODONE 2020-0 Yes 100mg Take 100 [facility] vers 100 mg 2-25 mg by ity of tablet 14:58: mouth at [place] [address] bedtime. [facility] benztropine 2020-0 Yes 1mg Take 1 mg U nivers 1 mg tablet 2-25 by mouth ity of 14:58: daily. [place] [address] [facility] DULOXETINE 2020-0 Yes 60mg Take 60 mg U nivers HCL 2-25 by mouth 3 ity of (CYMBALTA 14:58: (three) [place] ORAL) 32 times Medical daily. Branch VITAMIN B 2020-0 Yes Take by [facility] rs COMPLEX 2-25 mouth. ity of ORAL 14:58: [place] [address] [facility] traZODONE 2020-0 Yes 100mg Take 100 [facility] vers 100 mg 2-25 mg by ity of tablet 14:58: mouth at [place] [address] bedtime. Medical [facility] benztropine 2020-0 Yes 1mg Take 1 mg U nivers 1 mg tablet 2-25 by mouth ity of 14:58: daily. [place] [address] [facility] DULOXETINE 2020-0 Yes 60mg Take 60 mg U nivers HCL 2-25 by mouth 3 ity of (CYMBALTA 14:58: (three) [place] ORAL) 32 times Medical daily. Branch VITAMIN B 2020-0 Yes Take by [facility] rs COMPLEX 2-25 mouth. ity of ORAL 14:58: [place] [address] [facility] traZODONE 2020-0 Yes 100mg Take 100 [facility] vers 100 mg 2-25 mg by ity of tablet 14:58: mouth at [place] [address] bedtime. [facility] benztropine 2020-0 Yes 1mg Take 1 mg U nivers 1 mg tablet 2-25 by mouth ity of 14:58: daily. [place] [address] [facility] DULOXETINE 2020-0 Yes 60mg Take 60 mg U nivers HCL 2-25 by mouth 3 ity of (CYMBALTA 14:58: (three) [place] ORAL) 32 times Medical daily. Branch VITAMIN B 2020-0 Yes Take by [facility] rs COMPLEX 2-25 mouth. ity of ORAL 14:58: [place] [address] [facility] traZODONE 2020-0 Yes 100mg Take 100 [facility] vers 100 mg 2-25 mg by ity of tablet 14:58: mouth at [place] [address] bedtime. [facility] benztropine 2020-0 Yes 1mg Take 1 mg U nivers 1 mg tablet 2-25 by mouth ity of 14:58: daily. [place] [address] [facility] DULOXETINE 2020-0 Yes 60mg Take 60 mg U nivers HCL 2-25 by mouth 3 ity of (CYMBALTA 14:58: (three) [place] ORAL) 32 times Medical daily. Branch VITAMIN B 2020-0 Yes Take by [facility] rs COMPLEX 2-25 mouth. ity of ORAL 14:58: [place] [address] [facility] traZODONE 2020-0 Yes 100mg Take 100 [facility] vers 100 mg 2-25 mg by ity of tablet 14:58: mouth at [place] [address] bedtime. [facility] benztropine 2020-0 Yes 1mg Take 1 mg U nivers 1 mg tablet 2-25 by mouth ity of 14:58: daily. [place] [address] [facility] DULOXETINE 2020-0 Yes 60mg Take 60 mg U nivers HCL 2-25 by mouth 3 ity of (CYMBALTA 14:58: (three) [place] ORAL) 32 times Medical daily. Branch VITAMIN B 2020-0 Yes Take by [facility] rs COMPLEX 2-25 mouth. ity of ORAL 14:58: [place] [address] [facility] traZODONE 2020-0 Yes 100mg Take 100 [facility] vers 100 mg 2-25 mg by ity of tablet 14:58: mouth at [place] [address] bedtime. [facility] benztropine 2020-0 Yes 1mg Take 1 mg U nivers 1 mg tablet 2-25 by mouth ity of 14:58: daily. [place] [address] [facility] DULOXETINE 2020-0 Yes 60mg Take 60 mg U nivers HCL 2-25 by mouth 3 ity of (CYMBALTA 14:58: (three) [place] ORAL) 32 times Medical daily. Branch VITAMIN B 2020-0 Yes Take by [facility] rs COMPLEX 2-25 mouth. ity of ORAL 14:58: [place] [address] [facility] traZODONE 2020-0 Yes 100mg Take 100 [facility] vers 100 mg 2-25 mg by ity of tablet 14:58: mouth at [place] [address] bedtime. [facility] benztropine 2020-0 Yes 1mg Take 1 mg [facility] nivers 1 mg tablet 2-25 by mouth ity of 14:58: daily. [place] [address] [facility] DULOXETINE 2020-0 Yes 60mg Take 60 mg U nivers HCL 2-25 by mouth 3 ity of (CYMBALTA 14:58: (three) [place] ORAL) 32 times Medical daily. Branch VITAMIN B 2020-0 Yes Take by [facility] rs COMPLEX 2-25 mouth. ity of ORAL 14:58: [place] [address] [facility] traZODONE 2020-0 Yes 100mg Take 100 [facility] vers 100 mg 2-25 mg by ity of tablet 14:58: mouth at [place] [address] bedtime. Medical [facility] benztropine 2020-0 Yes 1mg Take 1 mg U nivers 1 mg tablet 2-25 by mouth ity of 14:58: daily. [place] [address] [facility] DULOXETINE 2020-0 Yes 60mg Take 60 mg U nivers HCL 2-25 by mouth 3 ity of (CYMBALTA 14:58: (three) [place] ORAL) 32 times Medical daily. Branch VITAMIN B 2020-0 Yes Take by [facility] rs COMPLEX 2-25 mouth. ity of ORAL 14:58: [place] [address] [facility] traZODONE 2020-0 Yes 100mg Take 100 [facility] vers 100 mg 2-25 mg by ity of tablet 14:58: mouth at [place] [address] bedtime. Medical [facility] benztropine 2020-0 Yes 1mg Take 1 mg [facility] nivers 1 mg tablet 2-25 by mouth ity of 14:58: daily. [place] [address] [facility] DULOXETINE 2020-0 Yes 60mg Take 60 mg U nivers HCL 2-25 by mouth 3 ity of (CYMBALTA 14:58: (three) [place] ORAL) 32 times Medical daily. Branch VITAMIN B 2020-0 Yes Take by [facility] rs COMPLEX 2-25 mouth. ity of ORAL 14:58: [place] [address] [facility] traZODONE 2020-0 Yes 100mg Take 100 [facility] vers 100 mg 2-25 mg by ity of tablet 14:58: mouth at [place] [address] bedtime. Medical [facility] benztropine 2020-0 Yes 1mg Take 1 mg [facility] nivers 1 mg tablet 2-25 by mouth ity of 14:58: daily. [place] [address] [facility] DULOXETINE 2020-0 Yes 60mg Take 60 mg U nivers HCL 2-25 by mouth 3 ity of (CYMBALTA 14:58: (three) [place] ORAL) 32 times Medical daily. Branch VITAMIN B 2020-0 Yes Take by [facility] rs COMPLEX 2-25 mouth. ity of ORAL 14:58: [place] [address] [facility] traZODONE 2020-0 Yes 100mg Take 100 [facility] vers 100 mg 2-25 mg by ity of tablet 14:58: mouth at [place] [address] bedtime. Medical [facility] benztropine 2020-0 Yes 1mg Take 1 mg [facility] nivers 1 mg tablet 2-25 by mouth ity of 14:58: daily. [place] [address] [facility] DULOXETINE 2020-0 Yes 60mg Take 60 mg U nivers HCL 2-25 by mouth 3 ity of (CYMBALTA 14:58: (three) [place] ORAL) 32 times Medical daily. Branch VITAMIN B 2020-0 Yes Take by [facility] rs COMPLEX 2-25 mouth. ity of ORAL 14:58: [place] [address] [facility] traZODONE 2020-0 Yes 100mg Take 100 [facility] vers 100 mg 2-25 mg by ity of tablet 14:58: mouth at [place] [address] bedtime. Medical [facility] benztropine 2020-0 Yes 1mg Take 1 mg U nivers 1 mg tablet 2-25 by mouth ity of 14:58: daily. [place] [address] [facility] DULOXETINE 2020-0 Yes 60mg Take 60 mg U nivers HCL 2-25 by mouth 3 ity of (CYMBALTA 14:58: (three) [place] ORAL) 32 times Medical daily. Branch VITAMIN B 2020-0 Yes Take by [facility] rs COMPLEX 2-25 mouth. ity of ORAL 14:58: [place] [address] [facility] traZODONE 2020-0 Yes 100mg Take 100 [facility] vers 100 mg 2-25 mg by ity of tablet 14:58: mouth at [place] [address] bedtime. Medical Branch benztropine 2020-0 Yes 1mg Take 1 mg U nivers 1 mg tablet 2-25 by mouth ity of 14:58: daily. [place] [address] [facility] DULOXETINE 2020-0 Yes 60mg Take 60 mg U nivers HCL 2-25 by mouth 3 ity of (CYMBALTA 14:58: (three) [place] ORAL) 32 times Medical daily. Branch VITAMIN B 2020-0 Yes Take by [facility] rs COMPLEX 2-25 mouth. ity of ORAL 14:58: [place] [address] [facility] traZODONE 2020-0 Yes 100mg Take 100 [facility] vers 100 mg 2-25 mg by ity of tablet 14:58: mouth at [place] [address] bedtime. Medical Branch benztropine 2020-0 Yes 1mg Take 1 mg U nivers 1 mg tablet 2-25 by mouth ity of 14:58: daily. [place] [address] [facility] DULOXETINE 2020-0 Yes 60mg Take 60 mg U nivers HCL 2-25 by mouth 3 ity of (CYMBALTA 14:58: (three) [place] ORAL) 32 times Medical daily. Branch VITAMIN B 2020-0 Yes Take by [facility] rs COMPLEX 2-25 mouth. ity of ORAL 14:58: [address] traZODONE 2020-0 Yes 100mg Take 100 [facility] vers 100 mg 2-25 mg by ity of tablet 14:58: mouth at [place] [address] bedtime. Medical Branch benztropine 2020-0 Yes 1mg Take 1 mg U nivers 1 mg tablet 2-25 by mouth ity of 14:58: daily. [address] VITAMIN B 2020-0 Yes Take by Un[facility] rs COMPLEX 2-25 mouth. ity of ORAL 14:58: [address] traZODONE 2020-0 Yes 100mg Take 100 [facility] vers 100 mg 2-25 mg by ity of tablet 14:58: mouth at [place] [address] bedtime. Medical [facility] benztropine 2020-0 Yes 1mg Take 1 mg U nivers 1 mg tablet 2-25 by mouth ity of 14:58: daily. [address] VITAMIN B 2020-0 Yes Take by Un[facility] rs COMPLEX 2-25 mouth. ity of ORAL 14:58: [address] traZODONE 2020-0 Yes 100mg Take 100 [facility] vers 100 mg 2-25 mg by ity of tablet 14:58: mouth at [place] [address] bedtime. Medical [facility] benztropine 2020-0 Yes 1mg Take 1 mg U nivers 1 mg tablet 2-25 by mouth ity of 14:58: daily. [address] VITAMIN B 2020-0 Yes Take by Un[facility] rs COMPLEX 2-25 mouth. ity of ORAL 14:58: [address] traZODONE 2020-0 Yes 100mg Take 100 [facility] vers 100 mg 2-25 mg by ity of tablet 14:58: mouth at [place] [address] bedtime. Medical Branch benztropine 2020-0 Yes 1mg Take 1 mg U nivers 1 mg tablet 2-25 by mouth ity of 14:58: daily. [address] VITAMIN B 2020-0 Yes Take by Un[facility] rs COMPLEX 2-25 mouth. ity of ORAL 14:58: [address] traZODONE 2020-0 Yes 100mg Take 100 [facility] vers 100 mg 2-25 mg by ity of tablet 14:58: mouth at [place] [address] bedtime. Medical Branch benztropine 2020-0 Yes 1mg Take 1 mg U nivers 1 mg tablet 2-25 by mouth ity of 14:58: daily. [address] Branch VITAMIN B 2020-0 Yes Take by Un[facility] rs COMPLEX 2-25 mouth. ity of ORAL 14:58: [address] traZODONE 2020-0 Yes 100mg Take 100 [facility] vers 100 mg 2-25 mg by ity of tablet 14:58: mouth at [place] [address] bedtime. [facility] benztropine 2020-0 Yes 1mg Take 1 mg U nivers 1 mg tablet 2-25 by mouth ity of 14:58: daily. [address] VITAMIN B 2020-0 Yes Take by Un[facility] rs COMPLEX 2-25 mouth. ity of ORAL 14:58: [address] traZODONE 2020-0 Yes 100mg Take 100 [facility] vers 100 mg 2-25 mg by ity of tablet 14:58: mouth at [place] [address] bedtime. [facility] benztropine 2020-0 Yes 1mg Take 1 mg U nivers 1 mg tablet 2-25 by mouth ity of 14:58: daily. [address] VITAMIN B 2020-0 Yes Take by Un[facility] rs COMPLEX 2-25 mouth. ity of ORAL 14:58: [address] traZODONE 2020-0 Yes 100mg Take 100 [facility] vers 100 mg 2-25 mg by ity of tablet 14:58: mouth at [place] [address] bedtime. Medical [facility] benztropine 2020-0 Yes 1mg Take 1 mg U nivers 1 mg tablet 2-25 by mouth ity of 14:58: daily. [address] VITAMIN B 2020-0 Yes Take by [facility] rs COMPLEX 2-25 mouth. ity of ORAL 14:58: [address] traZODONE 2020-0 Yes 100mg Take 100 [facility] vers 100 mg 2-25 mg by ity of tablet 14:58: mouth at [place] [address] bedtime. [facility] benztropine 2020-0 Yes 1mg Take 1 mg U nivers 1 mg tablet 2-25 by mouth ity of 14:58: daily. [address] VITAMIN B 2020-0 Yes Take by Un[facility] rs COMPLEX 2-25 mouth. ity of ORAL 14:58: [address] traZODONE 2020-0 Yes 100mg Take 100 [facility] vers 100 mg 2-25 mg by ity of tablet 14:58: mouth at [place] [address] bedtime. Medical Branch benztropine 2020-0 Yes 1mg Take 1 mg U nivers 1 mg tablet 2-25 by mouth ity of 14:58: daily. [address] Branch VITAMIN B 2020-0 Yes Take by Un[facility] rs COMPLEX 2-25 mouth. ity of ORAL 14:58: [address] traZODONE 2020-0 Yes 100mg Take 100 [facility] vers 100 mg 2-25 mg by ity of tablet 14:58: mouth at [place] [address] bedtime. Medical Branch benztropine 2020-0 Yes 1mg Take 1 mg U nivers 1 mg tablet 2-25 by mouth ity of 14:58: daily. [address] VITAMIN B 2020-0 Yes Take by Un[facility] rs COMPLEX 2-25 mouth. ity of ORAL 14:58: [address] traZODONE 2020-0 Yes 100mg Take 100 [facility] vers 100 mg 2-25 mg by ity of tablet 14:58: mouth at [place] [address] bedtime. [facility] benztropine 2020-0 Yes 1mg Take 1 mg U nivers 1 mg tablet 2-25 by mouth ity of 14:58: daily. [address] VITAMIN B 2020-0 Yes Take by Unive rs COMPLEX 2-25 mouth. ity of ORAL 14:58: [address] traZODONE 2020-0 Yes 100mg Take 100 Uni vers 100 mg 2-25 mg by ity of tablet 14:58: mouth at [place] [address] bedtime. [facility] benztropine 2020-0 Yes 1mg Take 1 mg U nivers 1 mg tablet 2-25 by mouth ity of 14:58: daily. [address] VITAMIN B 2020-0 Yes Take by Unive rs COMPLEX 2-25 mouth. ity of ORAL 14:58: [address] traZODONE 2020-0 Yes 100mg Take 100 Uni vers 100 mg 2-25 mg by ity of tablet 14:58: mouth at [place] [address] bedtime. [facility] benztropine 2020-0 Yes 1mg Take 1 mg U nivers 1 mg tablet 2-25 by mouth ity of 14:58: daily. [address] VITAMIN B 2020-0 Yes Take by Unive rs COMPLEX 2-25 mouth. ity of ORAL 14:58: [address] Branch traZODONE 2020-0 Yes 100mg Take 100 Uni vers 100 mg 2-25 mg by ity of tablet 14:58: mouth at [place] [address] bedtime. [facility] benztropine 2020-0 Yes 1mg Take 1 mg U nivers 1 mg tablet 2-25 by mouth ity of 14:58: daily. [address] Branch VITAMIN B 2020-0 Yes Take by Unive rs COMPLEX 2-25 mouth. ity of ORAL 14:58: [place] [address] Medical Branch traZODONE 2020-0 Yes 100mg Take 100 Uni vers 100 mg 2-25 mg by ity of tablet 14:58: mouth at [place] [address] bedtime. [facility] benztropine 2020-0 Yes 1mg Take 1 mg U nivers 1 mg tablet 2-25 by mouth ity of 14:58: daily. [address] Branch aripiprazol 2020-0 Yes 5mg Take [...] by ity of tablet 17:15: mouth at [place] [address] bedtime. [facility] DULOXETINE 2020-0 Yes 60mg [...] by ity of tablet 17:15: mouth at [place] [address] bedtime. [facility] DULOXETINE 2020-0 Yes 60mg Take 60 mg U nivers HCL 2-24 by mouth 3 ity of (CYMBALTA 17:15: (three) [place] ORAL) 45 times Medical daily. Branch VITAMIN B 2020-0 Yes Take by Unive rs COMPLEX 2-24 mouth. ity of ORAL 17:15: [place] 45 Medical [facility] traZODONE 2019- Yes 100mg Take 100 Uni vers 100 mg 2-24 mg by ity of tablet 17:15: mouth at [place] 45 bedtime. [facility] OLANZapine 2020- No 20mg Take 20 mg [facility] 20 mg 2-24 -24 by mouth ity of tablet 17:15: 00:00 at [place] 35 :00 bedtime. [facility] OLANZapine 2020- No 20mg Take 20 mg [facility] 20 mg 2-24 -24 by mouth ity of tablet 17:15: 00:00 at [place] 35 :00 bedtime. [facility] OLANZapine 2019- No 20mg Take 20 mg [facility] 20 mg 2-24 10-24 by mouth ity of tablet 17:15: 00:00 at [place] 35 :00 bedtime. [facility] OLANZapine 2020- [...] ity of capsule 17:15: 00:00 by mouth [place] 09 :00 daily. [facility] DULoxetine 2020- No Take 3 Univ ers 30 mg 2-24 02-24 capsules ity of capsule 17:15: 00:00 by mouth [place] 09 :00 daily. [facility] DULoxetine 2020- No Take 3 Univ ers 30 mg 2-24 02-24 capsules ity of capsule 17:15: 00:00 by mouth [place] 09 :00 daily. [facility] metoprolol 2019- Yes [id number] 50mg Take 1 Un nneka succinate 2-24 tablet by ity o f XL 50 mg 24 00:00: mouth [place] hr tablet 00 daily. [facility] metoprolol 2020-0 Yes [id number] 50mg Take 1 Un nneka succinate 2-24 tablet by ity o f XL 50 mg 24 00:00: mouth [place] hr tablet 00 daily. [facility] metoprolol 2020-0 Yes [id number] 50mg Take 1 Un nneka succinate 2-24 tablet by ity o f XL 50 mg 24 00:00: mouth [place] hr tablet 00 daily. [facility] metoprolol 2020-0 Yes [id number] 50mg Take 1 Un nneka succinate 2-24 tablet by ity o f XL 50 mg 24 00:00: mouth [place] hr tablet 00 daily. [facility] metoprolol 2020-0 Yes [id number] 50mg Take 1 Un nneka succinate 2-24 tablet by ity o f XL 50 mg 24 00:00: mouth [place] hr tablet 00 daily. [facility] metoprolol 2020-0 Yes [id number] 50mg Take 1 Un nneka succinate 2-24 tablet by ity o f XL 50 mg 24 00:00: mouth [place] hr tablet 00 daily. [facility] metoprolol 2020-0 Yes [id number] 50mg Take 1 Un nneka succinate 2-24 tablet by ity o f XL 50 mg 24 00:00: mouth [place] hr tablet 00 daily. [facility] metoprolol 2020-0 Yes [id number] 50mg Take 1 Un nneka succinate 2-24 tablet by ity o f XL 50 mg 24 00:00: mouth [place] hr tablet 00 daily. [facility] metoprolol 2020-0 Yes [id number] 50mg Take 1 Un nneka succinate 2-24 tablet by ity o f XL 50 mg 24 00:00: mouth [place] hr tablet 00 daily. [facility] metoprolol 2020-0 Yes [id number] 50mg Take 1 Un nneka succinate 2-24 tablet by ity o f XL 50 mg 24 00:00: mouth [place] hr tablet 00 daily. [facility] metoprolol 2020-0 2020- No [id number] 50mg Take 1 U nivers succinate 2-24 -09 tablet by ity of XL 50 mg 24 00:00: 00:00 [place] hr tablet 00 :00 daily. [facility] metoprolol 2020-0 2020- No [id number] 50mg Take 1 U nivers succinate 2-24 -09 tablet by ity of XL 50 mg 24 00:00: 00:00 [place] hr tablet 00 :00 daily. [facility] metoprolol 2019-0 2020- No [id number] 50mg Take 1 U nivers succinate 10-24- tablet by ity of XL 50 mg 24 00:00: 00:00 [place] hr tablet 00 :00 daily. [facility] metoprolol 2019-0 2020- No [id number] 50mg Take 1 U nivers succinate 10-24- tablet by ity of XL 50 mg 24 00:00: 00:00 mouth [place] hr tablet 00 :00 daily. [facility] hydroCHLORO 2020-0 Yes [id number] 25mg Take 1 [facility] thiazide 25 1-30 tablet by ity of mg tablet 00:00: mouth [place] 00 daily. [facility] meloxicam 2019-0 Yes [id number] 15mg Take 1 U nivers 15 mg 1-30 tablet by ity of tablet 00:00: mouth [place] 00 daily. [facility] metoprolol 2020-0 Yes [id number] 25mg Take 1 Un nneka succinate 1-30 tablet by ity o f XL 25 mg 24 00:00: mouth [place] hr tablet 00 daily. [facility] pregabalin 2020-0 Yes [id number] 150mg Take 1 [facility] (LYRICA) 1-30 capsule by ity o f 150 mg 00:00: mouth 2 [place] capsule 00 (two) Medical times Branch daily. hydroCHLORO 2020-0 Yes [id number] 25mg Take 1 [facility] thiazide 25 1-30 tablet by ity of mg tablet 00:00: mouth [place] 00 daily. [facility] meloxicam 2020-0 Yes [id number] 15mg Take 1 U nivers 15 mg 1-30 tablet by ity of tablet 00:00: mouth [place] 00 daily. [facility] metoprolol 2020-0 Yes [id number] 25mg Take 1 Un nneka succinate 1-30 tablet by ity o f XL 25 mg 24 00:00: mouth [place] hr tablet 00 daily. [facility] pregabalin 2020-0 Yes [id number] 150mg Take 1 [facility] (LYRICA) 1-30 capsule by ity o f 150 mg 00:00: mouth 2 [place] capsule 00 (two) Medical times Branch daily. hydroCHLORO 2020-0 Yes [id number] 25mg Take 1 [facility] thiazide 25 1-30 tablet by ity of mg tablet 00:00: mouth [place] 00 daily. [facility] meloxicam 2020-0 Yes [id number] 15mg Take 1 U nivers 15 mg 1-30 tablet by ity of tablet 00:00: mouth [place] 00 daily. [facility] pregabalin 2020-0 Yes [id number] 150mg Take 1 [facility] (LYRICA) 1-30 capsule by ity o f 150 mg 00:00: mouth 2 [place] capsule 00 (two) Medical times Branch daily. hydroCHLORO 2020-0 Yes [id number] 25mg Take 1 [facility] thiazide 25 1-30 tablet by ity of mg tablet 00:00: mouth [place] 00 daily. [facility] meloxicam 2020-0 Yes [id number] 15mg Take 1 U nivers 15 mg 1-30 tablet by ity of tablet 00:00: mouth [place] 00 daily. [facility] pregabalin 2020-0 Yes [id number] 150mg Take 1 [facility] (LYRICA) 1-30 capsule by ity o f 150 mg 00:00: mouth 2 [place] capsule 00 (two) Medical times Branch daily. hydroCHLORO 2020-0 Yes [id number] 25mg Take 1 [facility] thiazide 25 1-30 tablet by ity of mg tablet 00:00: mouth [place] 00 daily. [facility] meloxicam 2020-0 Yes [id number] 15mg Take 1 U nivers 15 mg 1-30 tablet by ity of tablet 00:00: mouth [place] 00 daily. [facility] pregabalin 2020-0 Yes [id number] 150mg Take 1 [facility] (LYRICA) 1-30 capsule by ity o f 150 mg 00:00: mouth 2 [place] capsule 00 (two) Medical times Branch daily. hydroCHLORO 2020-0 Yes [id number] 25mg Take 1 [facility] thiazide 25 1-30 tablet by ity of mg tablet 00:00: mouth [place] 00 daily. [facility] meloxicam 2020-0 Yes [id number] 15mg Take 1 U nivers 15 mg 1-30 tablet by ity of tablet 00:00: mouth [place] 00 daily. [facility] pregabalin 2020-0 Yes [id number] 150mg Take 1 [facility] (LYRICA) 1-30 capsule by ity o f 150 mg 00:00: mouth 2 [place] capsule 00 (two) Medical times Branch daily. hydroCHLORO 2020-0 Yes [id number] 25mg Take 1 [facility] thiazide 25 1-30 tablet by ity of mg tablet 00:00: mouth [place] 00 daily. [facility] meloxicam 2020-0 Yes [id number] 15mg Take 1 U nivers 15 mg 1-30 tablet by ity of tablet 00:00: mouth [place] 00 daily. [facility] Branch pregabalin 2020-0 Yes [id number] 150mg Take 1 [facility] (LYRICA) 1-30 capsule by ity o f 150 mg 00:00: mouth 2 [place] capsule 00 (two) Medical times Branch daily. hydroCHLORO 2020-0 Yes [id number] 25mg Take 1 [facility] thiazide 25 1-30 tablet by ity of mg tablet 00:00: mouth [place] 00 daily. [facility] Branch meloxicam 2020-0 Yes [id number] 15mg Take 1 U nivers 15 mg 1-30 tablet by ity of tablet 00:00: mouth [place] 00 daily. [facility] Branch pregabalin 2020-0 Yes [id number] 150mg Take 1 [facility] (LYRICA) 1-30 capsule by ity o f 150 mg 00:00: mouth 2 [place] capsule 00 (two) Medical times Branch daily. hydroCHLORO 2020-0 Yes [id number] 25mg Take 1 [facility] thiazide 25 1-30 tablet by ity of mg tablet 00:00: mouth [place] 00 daily. [facility] Branch meloxicam 2020-0 Yes [id number] 15mg Take 1 U nivers 15 mg 1-30 tablet by ity of tablet 00:00: mouth [place] 00 daily. [facility] pregabalin 2020-0 Yes [id number] 150mg Take 1 [facility] (LYRICA) 1-30 capsule by ity o f 150 mg 00:00: mouth 2 [place] capsule 00 (two) Medical times Branch daily. hydroCHLORO 2020-0 Yes [id number] 25mg Take 1 [facility] thiazide 25 1-30 tablet by ity of mg tablet 00:00: mouth [place] 00 daily. [facility] meloxicam 2020-0 Yes [id number] 15mg Take 1 U nivers 15 mg 1-30 tablet by ity of tablet 00:00: mouth [place] 00 daily. [facility] Branch pregabalin 2020-0 Yes [id number] 150mg Take 1 [facility] (LYRICA) 1-30 capsule by ity o f 150 mg 00:00: mouth 2 [place] capsule 00 (two) Medical times Branch daily. hydroCHLORO 2020-0 Yes [id number] 25mg Take 1 [facility] thiazide 25 1-30 tablet by ity of mg tablet 00:00: mouth [place] 00 daily. Medical Branch meloxicam 2020-0 Yes [id number] 15mg Take 1 U nivers 15 mg 1-30 tablet by ity of tablet 00:00: mouth [place] 00 daily. [facility] pregabalin 2020-0 Yes [id number] 150mg Take 1 [facility] (LYRICA) 1-30 capsule by ity o f 150 mg 00:00: mouth 2 [place] capsule 00 (two) Medical times Branch daily. hydroCHLORO 2020-0 Yes [id number] 25mg Take 1 [facility] thiazide 25 1-30 tablet by ity of mg tablet 00:00: mouth [place] 00 daily. [facility] meloxicam 2020-0 Yes [id number] 15mg Take 1 U nivers 15 mg 1-30 tablet by ity of tablet 00:00: mouth [place] 00 daily. [facility] pregabalin 2020-0 Yes [id number] 150mg Take 1 [facility] (LYRICA) 1-30 capsule by ity o f 150 mg 00:00: mouth 2 [place] capsule 00 (two) Medical times Branch daily. meloxicam 2020-0 Yes [id number] 15mg Take 1 U nivers 15 mg 1-30 tablet by ity of tablet 00:00: mouth [place] 00 daily. [facility] Branch pregabalin 2020-0 Yes [id number] 150mg Take 1 [facility] (LYRICA) 1-30 capsule by ity o f 150 mg 00:00: mouth 2 [place] capsule 00 (two) Medical times Branch daily. meloxicam 2020-0 Yes [id number] 15mg Take 1 U nivers 15 mg 1-30 tablet by ity of tablet 00:00: mouth [place] 00 daily. [facility] pregabalin 2020-0 Yes [id number] 150mg Take 1 [facility] (LYRICA) 1-30 capsule by ity o f 150 mg 00:00: mouth 2 [place] capsule 00 (two) Medical times Branch daily. meloxicam 2020-0 Yes [id number] 15mg Take 1 U nivers 15 mg 1-30 tablet by ity of tablet 00:00: mouth [place] 00 daily. [facility] pregabalin 2020-0 Yes [id number] 150mg Take 1 [facility] (LYRICA) 1-30 capsule by ity o f 150 mg 00:00: mouth 2 [place] capsule 00 (two) Medical times Branch daily. meloxicam 2020-0 Yes [id number] 15mg Take 1 U nivers 15 mg 1-30 tablet by ity of tablet 00:00: mouth [place] 00 daily. [facility] Branch pregabalin 2020-0 Yes [id number] 150mg Take 1 [facility] (LYRICA) 1-30 capsule by ity o f 150 mg 00:00: mouth 2 [place] capsule 00 (two) Medical times Branch daily. meloxicam 2020-0 Yes [id number] 15mg Take 1 U nivers 15 mg 1-30 tablet by ity of tablet 00:00: mouth [place] 00 daily. [facility] Branch pregabalin 2020-0 Yes [id number] 150mg Take 1 [facility] (LYRICA) 1-30 capsule by ity o f 150 mg 00:00: mouth 2 [place] capsule 00 (two) Medical times Branch daily. meloxicam 2020-0 Yes [id number] 15mg Take 1 U nivers 15 mg 1-30 tablet by ity of tablet 00:00: mouth [place] 00 daily. Medical Branch pregabalin 2020-0 Yes [id number] 150mg Take 1 [facility] (LYRICA) 1-30 capsule by ity o f 150 mg 00:00: mouth 2 [place] capsule 00 (two) Medical times Branch daily. meloxicam 2020-0 Yes [id number] 15mg Take 1 U nivers 15 mg 1-30 tablet by ity of tablet 00:00: mouth [place] 00 daily. Medical Branch pregabalin 2020-0 Yes [id number] 150mg Take 1 [facility] (LYRICA) 1-30 capsule by ity o f 150 mg 00:00: mouth 2 [place] capsule 00 (two) Medical times Branch daily. meloxicam 2020-0 Yes [id number] 15mg Take 1 U nivers 15 mg 1-30 tablet by ity of tablet 00:00: mouth [place] 00 daily. Medical Branch pregabalin 2020-0 Yes [id number] 150mg Take 1 [facility] (LYRICA) 1-30 capsule by ity o f 150 mg 00:00: mouth 2 [place] capsule 00 (two) Medical times Branch daily. meloxicam 2020-0 Yes [id number] 15mg Take 1 U nivers 15 mg 1-30 tablet by ity of tablet 00:00: mouth [place] 00 daily. [facility] pregabalin 2020-0 Yes [id number] 150mg Take 1 [facility] (LYRICA) 1-30 capsule by ity o f 150 mg 00:00: mouth 2 [place] capsule 00 (two) Medical times Branch daily. meloxicam 2020-0 Yes [id number] 15mg Take 1 U nivers 15 mg 1-30 tablet by ity of tablet 00:00: mouth [place] 00 daily. Medical Branch pregabalin 2020-0 Yes [id number] 150mg Take 1 [facility] (LYRICA) 1-30 capsule by ity o f 150 mg 00:00: mouth 2 [place] capsule 00 (two) Medical times Branch daily. meloxicam 2020-0 Yes [id number] 15mg Take 1 U nivers 15 mg 1-30 tablet by ity of tablet 00:00: mouth [place] 00 daily. Medical Branch pregabalin 2020-0 Yes [id number] 150mg Take 1 [facility] (LYRICA) 1-30 capsule by ity o f 150 mg 00:00: mouth 2 [place] capsule 00 (two) Medical times Branch daily. meloxicam 2020-0 Yes [id number] 15mg Take 1 U nivers 15 mg 1-30 tablet by ity of tablet 00:00: mouth [place] 00 daily. Medical Branch pregabalin 2020-0 Yes [id number] 150mg Take 1 [facility] (LYRICA) 1-30 capsule by ity o f 150 mg 00:00: mouth 2 [place] capsule 00 (two) Medical times Branch daily. meloxicam 2020-0 Yes [id number] 15mg Take 1 U nivers 15 mg 1-30 tablet by ity of tablet 00:00: mouth [place] 00 daily. Medical Branch pregabalin 2020-0 Yes [id number] 150mg Take 1 [facility] (LYRICA) 1-30 capsule by ity o f 150 mg 00:00: mouth 2 [place] capsule 00 (two) Medical times Branch daily. meloxicam 2020-0 Yes [id number] 15mg Take 1 U nivers 15 mg 1-30 tablet by ity of tablet 00:00: mouth [place] 00 daily. Medical Branch pregabalin 2020-0 Yes [id number] 150mg Take 1 [facility] (LYRICA) 1-30 capsule by ity o f 150 mg 00:00: mouth 2 [place] capsule 00 (two) Medical times Branch daily. meloxicam 2020-0 Yes [id number] 15mg Take 1 U nivers 15 mg 1-30 tablet by ity of tablet 00:00: mouth [place] 00 daily. Medical Branch pregabalin 2020-0 Yes [id number] 150mg Take 1 [facility] (LYRICA) 1-30 capsule by ity o f 150 mg 00:00: mouth 2 [place] capsule 00 (two) Medical times Branch daily. meloxicam 2020-0 Yes [id number] 15mg Take 1 U nivers 15 mg 1-30 tablet by ity of tablet 00:00: mouth [place] 00 daily. Medical Branch pregabalin 2020-0 Yes [id number] 150mg Take 1 [facility] (LYRICA) 1-30 capsule by ity o f 150 mg 00:00: mouth 2 [place] capsule 00 (two) Medical times Branch daily. meloxicam 2020-0 Yes [id number] 15mg Take 1 U nivers 15 mg 1-30 tablet by ity of tablet 00:00: mouth [place] 00 daily. Medical Branch pregabalin 2020-0 Yes [id number] 150mg Take 1 [facility] (LYRICA) 1-30 capsule by ity o f 150 mg 00:00: mouth 2 [place] capsule 00 (two) Medical times Branch daily. meloxicam 2020-0 Yes [id number] 15mg Take 1 U nivers 15 mg 1-30 tablet by ity of tablet 00:00: mouth [place] 00 daily. Medical Branch meloxicam 2020-0 Yes [id number] 15mg Take 1 U nivers 15 mg 1-30 tablet by ity of tablet 00:00: mouth [place] 00 daily. Medical Branch meloxicam 2020-0 Yes [id number] 15mg Take 1 U nivers 15 mg 1-30 tablet by ity of tablet 00:00: mouth [place] 00 daily. Medical Branch meloxicam 2020-0 Yes [id number] 15mg Take 1 U nivers 15 mg 1-30 tablet by ity of tablet 00:00: mouth [place] 00 daily. [facility] Branch meloxicam 2020-0 Yes [id number] 15mg Take 1 U nivers 15 mg 1-30 tablet by ity of tablet 00:00: mouth [place] 00 daily. [facility] Branch meloxicam 2020-0 Yes [id number] 15mg Take 1 U nivers 15 mg 1-30 tablet by ity of tablet 00:00: mouth [place] 00 daily. Medical Branch meloxicam 2019-0 Yes [id number] 15mg Take 1 U nivers 15 mg 1-30 tablet by ity of tablet 00:00: mouth [place] 00 daily. Medical Branch meloxicam 2019-0 Yes [id number] 15mg Take 1 U nivers 15 mg 1-30 tablet by ity of tablet 00:00: mouth [place] 00 daily. Medical Branch pregabalin 2019- No [id number] 150mg Take 1 [facility] (LYRICA) 1-30 12-21 capsule by ity of 150 mg 00:00: 00:00 mouth 2 [place] capsule 00 :00 (two) Medical times Branch daily. hydroCHLORO 2019-2019- No [id number] 25mg Take 1 [facility] thiazide 25 -30 07-09 tablet by it y of mg tablet 00:00: 00:00 mouth [place] 00 :00 daily. Medical Branch hydroCHLORO 2019-2019- No [id number] 25mg Take 1 [facility] thiazide 25 30 -09 tablet by it y of mg tablet 00:00: 00:00 mouth [place] 00 :00 daily. Medical Branch hydroCHLORO 2019-2019- No [id number] 25mg Take 1 [facility] thiazide 25 -30 -09 tablet by it y of mg tablet 00:00: 00:00 mouth [place] 00 :00 daily. Medical Branch hydroCHLORO 2019-2019- No [id number] 25mg Take 1 [facility] thiazide 25 -30 07-09 tablet by it y of mg tablet 00:00: 00:00 mouth [place] 00 :00 daily. Medical Branch metoprolol 2019- 2020- No [id number] 25mg Take 1 U nivers succinate -30 02-24 tablet by ity of XL 25 mg 24 00:00: 00:00 mouth [place] hr tablet 00 :00 daily. [facility] metoprolol 2019- 2020- No [id number] 25mg Take 1 U nivers succinate 1-30 02-24 tablet by ity of XL 25 mg 24 00:00: 00:00 mouth [place] hr tablet 00 :00 daily. [facility] Branch metoprolol 2019-2019- No [id number] 25mg Take 1 U nivers succinate 1-30 02-24 tablet by ity of XL 25 mg 24 00:00: 00:00 mouth [place] hr tablet 00 :00 daily. Medical Branch aripiprazol 2018-08 Yes 5mg Take 5 mg U nivers e (ABILIFY 2-17 by mouth 2 ity of ORAL) 15:02: (two) [place] 33 times Medical daily. Branch aripiprazol 2018-08 Yes 5mg Take 5 mg U nivers e (ABILIFY 2-17 by mouth 2 ity of ORAL) 15:02: (two) [place] 33 times Medical daily. Branch aripiprazol 2018-08 Yes 5mg Take 5 mg U nivers e (ABILIFY 2-17 by mouth 2 ity of ORAL) 15:02: (two) [place] 33 times Medical daily. Branch aripiprazol 2018-08 Yes 5mg Take 5 mg U nivers e (ABILIFY 2-17 by mouth 2 ity of ORAL) 15:02: (two) [place] 33 times Medical daily. Branch VITAMIN B 2018-08 Yes Take by Unive rs COMPLEX 0-31 mouth. ity of ORAL 17:11: [address] traZODONE 2018-08 Yes 100mg Take 100 Uni vers 100 mg 0-31 mg by ity of tablet 17:11: mouth at [place] [address] bedtime. Medical Branch VITAMIN B 2018-08 Yes Take by Unive rs COMPLEX 0-31 mouth. ity of ORAL 17:11: [address] traZODONE 2018-08 Yes 100mg Take 100 Uni vers 100 mg 0-31 mg by ity of tablet 17:11: mouth at [place] [address] bedtime. Medical Branch VITAMIN B 2018-08 Yes Take by Unive rs COMPLEX 0-31 mouth. ity of ORAL 17:11: [address] Branch traZODONE 2018-08 Yes 100mg Take 100 Uni vers 100 mg 0-31 mg by ity of tablet 17:11: mouth at [place] [address] bedtime. Medical Branch VITAMIN B 2018-08 Yes Take by Unive rs COMPLEX 0-31 mouth. ity of ORAL 17:11: [address] traZODONE 2018-08 Yes 100mg Take 100 Uni vers 100 mg 0-31 mg by ity of tablet 17:11: mouth at [place] [address] bedtime. [facility] Branch traZODONE Yes 100mg Take 100 Uni vers 100 mg 8-29 mg by ity of tablet 19:24: mouth at [place] [address] bedtime. Medical Branch traZODONE 0 Yes 100mg Take 100 Uni vers 100 mg 8-29 mg by ity of tablet 19:24: mouth at [place] [address] bedtime. Medical Branch traZODONE 0 Yes 100mg Take 100 Uni vers 100 mg 8-29 mg by ity of tablet 19:24: mouth at [place] [address] bedtime. Medical Branch traZODONE 0 Yes 100mg Take 100 Uni vers 100 mg 8-29 mg by ity of tablet 19:24: mouth at [place] [address] bedtime. Medical Branch traZODONE Yes 100mg Take 100 Uni vers 100 mg 8-29 mg by ity of tablet 19:24: mouth at [place] [address] bedtime. Medical Branch traZODONE Yes 100mg Take 100 Uni vers 100 mg 8-29 mg by ity of tablet 19:24: mouth at [place] [address] bedtime. Medical Branch benztropine Yes 1mg Take 1 mg U nivers 1 mg tablet 8-29 by mouth ity of 14:39: daily. [place] 21 Medical Branch ARIPiprazol Yes 10mg Take [...] 8-29 by mouth ity of 14:39: daily. [place] 21 Medical Branch ARIPiprazol 0 Yes 10mg [...] 8-29 by mouth ity of 14:39: daily. [place] [facility] Branch ARIPiprazol Yes 10mg Take 10 [...] 8-29 by mouth ity of 14:39: daily. [place] [facility] ARIPiprazol Yes 10mg Take 10 mg Univers [...] 8-29 by mouth ity of 14:39: daily. [place] [facility] ARIPiprazol Yes 10mg Take 10 mg Univers [...] 21 times Medical daily. Branch metoprolol Yes [id number] 25mg Take 1 Un nneka succinate 8-29 tablet by ity o f XL 25 mg 24 00:00: mouth [place] hr tablet 00 daily. Medical Branch hydroCHLORO Yes [id number] 25mg Take 1 [facility] thiazide 25 8-29 tablet by ity of mg tablet 00:00: mouth [place] 00 daily. Medical Branch meloxicam Yes [id number] 15mg Take 1 U nivers 15 mg 8-29 tablet by ity of tablet 00:00: mouth [place] 00 daily. Medical Branch metoprolol Yes [id number] 25mg Take 1 Un nneka succinate 8-29 tablet by ity o f XL 25 mg 24 00:00: mouth [place] hr tablet 00 daily. Medical Branch hydroCHLORO Yes [id number] 25mg Take 1 [facility] thiazide 25 8-29 tablet by ity of mg tablet 00:00: mouth [place] 00 daily. Medical Branch meloxicam Yes [id number] 15mg Take 1 U nivers 15 mg 8-29 tablet by ity of tablet 00:00: mouth [place] 00 daily. Medical Branch metoprolol 2019-0 Yes [id number] 25mg Take 1 Un nneka succinate 8-29 tablet by ity o f XL 25 mg 24 00:00: mouth [place] hr tablet 00 daily. Medical Branch hydroCHLORO 2018-0 Yes [id number] 25mg Take 1 [facility] thiazide 25 8-29 tablet by ity of mg tablet 00:00: mouth [place] 00 daily. Medical Branch meloxicam 0 Yes [id number] 15mg Take 1 U nivers 15 mg 8-29 tablet by ity of tablet 00:00: mouth [place] 00 daily. Medical Branch metoprolol Yes [id number] 25mg Take 1 Un nneka succinate 8-29 tablet by ity o f XL 25 mg 24 00:00: mouth [place] hr tablet 00 daily. Medical Branch hydroCHLORO Yes [id number] 25mg Take 1 [facility] thiazide 25 8-29 tablet by ity of mg tablet 00:00: mouth [place] 00 daily. Medical Branch meloxicam Yes [id number] 15mg Take 1 U nivers 15 mg 8-29 tablet by ity of tablet 00:00: mouth [place] 00 daily. Medical Branch metoprolol 0 Yes [id number] 25mg Take 1 Un nneka succinate 8-29 tablet by ity o f XL 25 mg 24 00:00: mouth [place] hr tablet 00 daily. Medical Branch hydroCHLORO Yes [id number] 25mg Take 1 [facility] thiazide 25 8-29 tablet by ity of mg tablet 00:00: mouth [place] 00 daily. Medical Branch meloxicam Yes [id number] 15mg Take 1 U nivers 15 mg 8-29 tablet by ity of tablet 00:00: mouth [place] 00 daily. Medical Branch metoprolol 0 Yes [id number] 25mg Take 1 Un nneka succinate 8-29 tablet by ity o f XL 25 mg 24 00:00: mouth [place] hr tablet 00 daily. Medical Branch hydroCHLORO 0 Yes [id number] 25mg Take 1 [facility] thiazide 25 8-29 tablet by ity of mg tablet 00:00: mouth [place] 00 daily. Medical Branch meloxicam Yes [id number] 15mg Take 1 U nivers 15 mg 8-29 tablet by ity of tablet 00:00: mouth [place] 00 daily. Medical Branch metoprolol Yes [id number] 25mg Take 1 Un nneka succinate 8-29 tablet by ity o f XL 25 mg 24 00:00: mouth [place] hr tablet 00 daily. Medical Branch hydroCHLORO Yes [id number] 25mg Take 1 [facility] thiazide 25 8-29 tablet by ity of mg tablet 00:00: mouth [place] 00 daily. Medical Branch meloxicam Yes [id number] 15mg Take 1 U nivers 15 mg 8-29 tablet by ity of tablet 00:00: mouth [place] 00 daily. [facility] Branch metoprolol 2020- No [id number] 25mg Take 1 U nivers succinate 8-28 09-30 tablet by ity of XL 25 mg 24 00:00: 00:00 mouth [place] hr tablet 00 :00 daily. Medical Branch hydroCHLORO 2020- No [id number] 25mg Take 1 [facility] thiazide 25 -28 09-30 tablet by it y of mg tablet 00:00: 00:00 mouth [place] 00 :00 daily. [facility] meloxicam 2020- No [id number] 15mg Take 1 Univers 15 mg 8-28 09-30 tablet by ity of tablet 00:00: 00:00 mouth [place] 00 :00 daily. [facility] metoprolol 2020- No [id number] 25mg Take 1 U nivers succinate 8-28 09-30 tablet by ity of XL 25 mg 24 00:00[place] :00 daily. [facility] hydroCHLORO 2020- No [id number] 25mg Take 1 Univers thiazide 25 04-2830 tablet by it y of mg tablet 00:00: 00:00 mouth [place] 00 :00 daily. [facility] meloxicam 2020- No [id number] 15mg Take 1 Univers 15 mg 8-28 09-30 tablet by ity of tablet 00:00: 00:00 mouth [place] 00 :00 daily. Medical Branch Dose 2019-0 No Unknown 7- 00:00: 00 Dose 2019-0 No Unknown 7- 00:00: 00 Dose 2019-0 No Unknown 7- 00:00: 00 Dose 2019-0 No Unknown 7- 00:00: 00 Dose 2019-0 No Unknown 7-30 00:00: 00 Dose 2018-0 No Unknown 7-30 00:00: 00 METOPROLOL 2019- No [id number] TAKE 1 U nivers SUCCINATE 7-10 08-29 TABLET BY ity of XL 25 mg 24 00:00[place]TH [place] 00 :00 EVERY DAY Medic al Branch METOPROLOL 2019- No [id number] TAKE 1 U nivers SUCCINATE 7-10 08-29 TABLET BY ity of XL 25 mg 24 00:00[place] 00:[place] 00 :00 EVERY DAY Medic al Branch hydroCHLORO 2019- No [id number] 25mg Take 1 Univers thiazide 25 5-30 08-29 tablet by it y of mg tablet 00:00: 00:00 mouth [place] 00 :00 daily. Medical [facility] meloxicam 2019- No [id number] 7.5mg Take 1 Univers (MOBIC) 7.5 5-30 -29 tablet by it y of mg tablet 00:00: 00:00 mouth [place] 00 :00 daily. Medical [facility] hydroCHLORO 2019- No [id number] 25mg Take 1 Univers thiazide 25 5-30 08-29 tablet by it y of mg tablet 00:00: 00:00 mouth [place] 00 :00 daily. Medical [facility] meloxicam 2019- No [id number] 7.5mg Take 1 Univers (MOBIC) 7.5 5-30 [...] by mouth ity of tablet 20:00: at [place] 25 bedtime. Medical Branch aripiprazol Yes 5mg [...] by mouth ity of tablet 20:00: at [place] 25 bedtime. Medical Branch DULOXETINE 2019-0 Yes 60mg Take 60 mg U nivers HCL 4-23 by mouth 3 ity of (CYMBALTA 20:00: (three) [place] ORAL) 25 times Medical daily. Branch OLANZapine 2019-0 Yes 20mg Take 20 mg U nivers 20 mg 4-23 by mouth ity of tablet 20:00: at [place] 25 bedtime. Medical Branch DULOXETINE 2019-0 Yes 60mg Take 60 mg U nivers HCL 4-23 by mouth 3 ity of (CYMBALTA 20:00: (three) [place] ORAL) 25 times Medical daily. Branch OLANZapine 2019-0 Yes 20mg Take 20 mg U nivers 20 mg 4-23 by mouth ity of tablet 20:00: at [place] 25 bedtime. Medical Branch DULOXETINE 2019-0 Yes 60mg Take 60 mg U nivers HCL 4-23 by mouth 3 ity of (CYMBALTA 20:00: (three) [place] ORAL) 25 times Medical daily. Branch OLANZapine 2019-0 Yes 20mg Take 20 mg U nivers 20 mg 4-23 by mouth ity of tablet 20:00: at [place] 25 bedtime. Medical Branch DULOXETINE 2019-0 Yes 60mg Take 60 mg U nivers HCL 4-23 by mouth 3 ity of (CYMBALTA 20:00: (three) [place] ORAL) 25 times Medical daily. Branch OLANZapine 2019-0 Yes 20mg Take 20 mg U nivers 20 mg 4-23 by mouth ity of tablet 20:00: at [place] 25 bedtime. Medical Branch aripiprazol 2019-0 Yes [...] by mouth ity of tablet 20:00: at [place] 25 bedtime. Medical Branch aripiprazol 2019-0 Yes [...] by mouth ity of tablet 20:00: at [place] 25 bedtime. Medical Branch aripiprazol 2019-0 Yes [...] by mouth ity of tablet 20:00: at [place] 25 bedtime. Medical Branch aripiprazol 2019-0 Yes [...] by mouth ity of tablet 20:00: at [place] 25 bedtime. Medical Branch aripiprazol 2019-0 Yes 5mg Take 5 mg U nivers e (ABILIFY 4-23 by mouth 2 ity of ORAL) 20:00: (two) [place] 25 times Medical daily. Branch VITAMIN B 2019-0 Yes Take by Unive rs COMPLEX 3-28 mouth. ity of ORAL 16:11: [place] [address] Medical Branch VITAMIN B 2019-0 Yes Take by Unive rs COMPLEX 3-28 mouth. ity of ORAL 16:11: [place] 47 Medical Branch VITAMIN B 2019-0 Yes Take by Unive rs COMPLEX 3-28 mouth. ity of ORAL 16:11: [address] VITAMIN B Yes Take by Unive rs COMPLEX 3-28 mouth. ity of ORAL 16:11: [address] VITAMIN B Yes Take by Unive rs COMPLEX 3-28 mouth. ity of ORAL 16:11: [address] VITAMIN B Yes Take by Unive rs COMPLEX 3-28 mouth. ity of ORAL 16:11: [address] amlodipine 2019-0 No 1mg 5 mg [...] 8-15 tablet 00:00: 00 cyclobenzap 2018-0 Yes [id number] Bid prn Univers rine 10 mg 8-02 ity of tablet 00:00: [address] cyclobenzap 2018-0 Yes [id number] Bid prn Univers rine 10 mg 8-02 ity of tablet 00:00: [address] Branch cyclobenzap 2018-0 Yes [id number] Bid prn Univers rine 10 mg 8-02 ity of tablet 00:00: [address] cyclobenzap 2018-0 Yes [id number] Bid prn Univers rine 10 mg 8-02 ity of tablet 00:00: [address] Branch cyclobenzap 2018-0 Yes [id number] Bid prn Univers rine 10 mg 8-02 ity of tablet 00:00: [address] cyclobenzap 2018-0 Yes [id number] Bid prn Univers rine 10 mg 8-02 ity of tablet 00:00: [address] cyclobenzap 2018-0 Yes [id number] Bid prn Univers rine 10 mg 8-02 ity of tablet 00:00: [address] cyclobenzap 2018-0 Yes [id number] Bid prn Univers rine 10 mg 8-02 ity of tablet 00:00: [address] cyclobenzap 2018-0 Yes [id number] Bid prn Univers rine 10 mg 8- ity of tablet 00:00: [place] 00 Medical Branch cyclobenzap 2018-0 Yes [id number] Bid prn Univers rine 10 mg 8- ity of tablet 00:00: [place] 00 Medical Branch cyclobenzap 2018-0 2020- No [id number] Bid prn Univers rine 10 mg 04-01 ity of tablet 00:00: 00:00 [place] 00 :00 Medical Branch cyclobenzap 2018-0 2020- No [id number] Bid prn Univers rine 10 mg 04-01 ity of tablet 00:00: 00:00 [place] 00 :00 Medical Branch cyclobenzap 2018-0 2020- No [id number] Bid prn Univers rine 10 mg 04-01 ity of tablet 00:00: 00:00 [place] 00 :00 Medical Branch amlodipine 2018-0 No [...] 5-19 capsule 00:00: 00 DULoxetine 2016-0 Yes [id number] Emanuel sey HCl 30 MG 3-16 Seybold oral 00:00: - Capsule 00 Externa Delayed l Release Sprinkle hydrOXYzine 2016-0 Yes [id number] Ke lsey HCl 25 MG 3-16 Seybold oral Tablet 00:00: - 00 Externa l DULoxetine 2016-0 Yes [id number] Emanuel sey HCl 30 MG 3-16 Seybold oral 00:00: - Capsule 00 Externa Delayed l Release Sprinkle hydrOXYzine 2016-0 Yes [id number] Ke lsey HCl 25 MG 3-16 Seybold oral Tablet 00:00: - 00 Externa l DULoxetine 2016-0 Yes Jelena HCl 30 MG 3-16 Seybold oral 00:00: - Capsule 00 Externa Delayed l Release Sprinkle hydrOXYzine 2016-0 Yes Jelena HCl 25 MG 3-16 Seybold oral Tablet 00:00: - 00 Externa l DULoxetine 2016-0 Yes [id number] Emanuel sey HCl 30 MG 3-16 Seybold oral 00:00: - Capsule 00 Externa Delayed l Release Sprinkle hydrOXYzine 2016-0 Yes [id number] Ke lsey HCl 25 MG 3-16 Seybold oral Tablet 00:00: - 00 Externa l DULoxetine 2016-0 Yes [id number] Emanuel sey HCl 30 MG 3-16 Seybold oral 00:00: - Capsule 00 Externa Delayed l Release Sprinkle hydrOXYzine 2016-0 Yes [id number] Ke lsey HCl 25 MG 3-16 Seybold oral Tablet 00:00: - 00 Externa l DULoxetine 2016-0 Yes [id number] Emanuel sey HCl 30 MG 3-16 Seybold oral 00:00: - Capsule 00 Externa Delayed l Release Sprinkle hydrOXYzine 2015-0 Yes [id number] Ke lsey HCl 25 MG 3-16 Seybold oral Tablet 00:00: - 00 Externa l DULoxetine 2015-0 3- No [id number] Ke lsey HCl 30 MG 3-16 04-24 Seybold oral 00:00: 00:00 - Capsule 00 :00 Externa Delayed l Release Sprinkle hydrOXYzine 2015-0 3- No [id number] K elsey HCl 25 MG 3-16 04-24 Seybold oral Tablet 00:00: 00:00 - 00 :00 Externa l Immunizations Ordered Immunization Filled Immunization Date Status Commen ts Source Name Name COVID-19 BIVALENT 2022-08-28 Completed Jelena Seybold VACCINE MODERNA 00:00:00 - Externa l COVID-19 BIVALENT 2022-08-28 Completed Jelena Seybold BOOSTER [...] Externa l COVID-19 BIVALENT 2022-08-28 Completed Jelena Ibrahim VACCINE MODERNA 00:00:00 - Externa l COVID-19 BIVALENT 2022-08-28 Completed Jelena Ibrahim VACCINE [...] Moderna (Spikevax), 00:00:00 - Ext ernal Mrna-lnp, Bradlye Protein, Pf Covid-19 Vaccine 2021-10-19 Completed Jelena [...] Pf Covid-19 Vaccine 2021-09-07 Completed Jelena Umaña alyssajuan antonio Moderna (Spikevax), 00:00:00 - Ext ernal Mrna-lnp, Bradley Protein, Pf Covid-19 Vaccine 2021-09-07 Completed Jelena Umaña alyssajuan antonio Moderna (Spikevax), 00:00:00 - Ext ernal Mrna-lnp, Bradley Protein, Pf Covid-19 Vaccine 2021-09-07 Completed Jelena Umaña alyssajuan antonio Moderna (Spikevax), 00:00:00 - Ext ernal Mrna-lnp, Bradley Protein, Pf Covid-19 Vaccine 2021-09-07 Completed Jelena newman Moderna (Spikevax), 00:00:00 - Ext ernal Mrna-lnp, Bradley Protein, Pf Covid-19 Vaccine 2021-09-07 Completed Jelena Umaña alyssajuan antonio Moderna (Spikevax), 00:00:00 - Ext ernal Mrna-lnp, Bradley Protein, Pf Covid-19 Vaccine 2021-09-07 Completed Jelena Umaña alyssajuan antonio Moderna (Spikevax), 00:00:00 - Ext ernal Mrna-lnp, Bradley Protein, Pf Covid-19 Vaccine 2021-09-07 Completed Jelena newman Moderna (Spikevax), 00:00:00 - Ext ernal Mrna-lnp, Bradley Protein, Pf Covid-19 Vaccine 2021-09-07 Completed Jelena Umaña alyssajuan antonio Moderna (Spikevax), 00:00:00 - Ext ernal Mrna-lnp, Bradley Protein, Pf Covid-19 Vaccine 2021-09-07 Completed Jelena Umaña alyssajuan antonio Moderna (Spikevax), 00:00:00 - Ext [...] Externa l Pneumococcal Vaccine, 2009-04-17 Completed Emanuel lit Seybold [...] - External DTaP Unspecified 2009-04-17 Completed Jelena newman 00:00:00 - External Hepatitis A 2009-04-17 Completed [...] Externa l Hepatitis A 2008-02-18 Completed Jelena Eatonol d 00:00:00 - External HPV 4 (Human 2008-02-18 Completed Jelena Seybo ld Papillomavirus) 00:00:00 - Externa l Meningococcal 2008-02-18 Completed Jelena Seyb old Mcv4,unspecified 00:00:00 - 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 Hepatitis A 2008-02-18 Completed Jelena Seybol d 00:00:00 - External HPV 4 (Human 2008-02-18 Completed Jelena Seybo ld Papillomavirus) 00:00:00 - Externa l Meningococcal 2008-02-18 Completed Jelena Seyb old Mcv4,unspecified 00:00:00 - 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 Hepatitis A 2008-02-18 Completed Jelena Seybol d 00:00:00 - External HPV 4 (Human 2008-02-18 Completed Jelena Seybo ld Papillomavirus) 00:00:00 - Externa l Meningococcal 2008-02-18 Completed Jelena Seyb old Mcv4,unspecified 00:00:00 - 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 Hepatitis A 2008-02-18 Completed Jelena Seybol d 00:00:00 - External HPV 4 (Human 2008-02-18 Completed Jelena Seybo ld Papillomavirus) 00:00:00 - Externa l Meningococcal 2008-02-18 Completed Jelena Seyb old Mcv4,unspecified 00:00:00 - 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 Hepatitis A 2008-02-18 Completed Jelena Seybol d 00:00:00 - External Hepatitis A 2008-02-18 Completed Jelena Seybol d 00:00:00 - External HPV 4 (Human 2008-02-18 Completed Jelena Seybo ld Papillomavirus) 00:00:00 - Externa l Meningococcal 2008-02-18 Completed Jelena Seyb old Mcv4,unspecified 00:00:00 - 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 Hepatitis A 2008-02-18 Completed Jelena Seybol d 00:00:00 - External HPV 4 (Human 2008-02-18 Completed Jelena Seybo ld Papillomavirus) 00:00:00 - Externa l Meningococcal 2008-02-18 Completed Jelena Seyb old Mcv4,unspecified 00:00:00 - 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 HPV 4 (Human 2008-02-18 Completed Jelena Seybo ld Papillomavirus) 00:00:00 - Externa l Meningococcal 2008-02-18 Completed Jelena Seyb old Mcv4,unspecified 00:00:00 - 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 Hepatitis A 2008-02-18 Completed Jelena Seybol d 00:00:00 - External HPV 4 (Human 2008-02-18 Completed Jelena Seybo ld Papillomavirus) 00:00:00 - Externa l Meningococcal 2008-02-18 Completed Jelena Seyb old Mcv4,unspecified 00:00:00 - 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 Hepatitis A 2008-02-18 Completed Jelena Seybol d 00:00:00 - External HPV 4 (Human 2008-02-18 Completed Jelena Seybo ld Papillomavirus) 00:00:00 - Externa l Meningococcal 2008-02-18 Completed Jelena Seyb old Mcv4,unspecified 00:00:00 - 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 Hepatitis A 2008-02-18 Completed Jelena Seybol d 00:00:00 - External HPV 4 (Human 2008-02-18 Completed Jelena Seybo ld Papillomavirus) 00:00:00 - Externa l Meningococcal 2008-02-18 Completed Jelena Seyb old Mcv4,unspecified 00:00:00 - 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 Hepatitis A 2008-02-18 Completed Jelena Seybol d 00:00:00 - External HPV 4 (Human 2008-02-18 Completed Jelena Seybo ld Papillomavirus) 00:00:00 - Externa l Meningococcal 2008-02-18 Completed Jelena Seyb old Mcv4,unspecified 00:00:00 - 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 Hepatitis A 2008-02-18 Completed Jelena Seybol d 00:00:00 - External HPV 4 (Human 2008-02-18 Completed Jelena Seybo ld Papillomavirus) 00:00:00 - Externa l Meningococcal 2008-02-18 Completed Jelena Seyb old Mcv4,unspecified 00:00:00 - 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 Hepatitis A 2008-02-18 Completed Jelena Seybol d 00:00:00 - External HPV 4 (Human 2008-02-18 Completed Jelena Seybo ld Papillomavirus) 00:00:00 - Externa l Meningococcal 2008-02-18 Completed Jelena Seyb old Mcv4,unspecified 00:00:00 - 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 Hepatitis A 2008-02-18 Completed Jelena Seybol d 00:00:00 - External HPV 4 (Human 2008-02-18 Completed Jelena Seybo ld Papillomavirus) 00:00:00 - Externa l Meningococcal 2008-02-18 Completed Jelena Seyb old Mcv4,unspecified 00:00:00 - 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 Td (adult), 2 2006-05-25 Completed Jelena Umaña [...] 2002-04-21 Completed Jelena Guevaraybmarcel 00:00:00 - External HIB- Haemophilus 1997-05-31 Completed [...] - Exter nal HIB- Haemophilus 1997-05-31 Completed eJlena S eybold Influenzae Type B 00:00:00 - [...] E xternal rtussis DTP- 1997-04-05 Completed Jelena Seybold Diphtheria,Tetanus,Pe 00:00:00 [...] Jelena Guevaraybo ld Unspecified 00:00:00 - External DTP- 1993 [...] Time Observation Value Comments Source Systolic blood 2023-05-06 15:25:00 100 mm[Hg] Jelena Ibrahim - pressure External Diastolic blood 2023-05-06 15:25:00 85 mm[Hg] Beth Ibrahim - pressure External Heart rate 2023-05-06 15:25:00 81 /min Jelena newman - External Body temperature 2023-05-06 15:25:00 36.5 Mera Ashlie Ibrahim - External Body height 2023-05-06 15:25:00 160 cm Jelena newman - External Body weight 2023-05-06 15:25:00 135.626 kg Jelena newman - External BMI 2023-05-06 15:25:00 52.97 kg/m2 Jelena Umaña eybold - External Systolic blood 2023-04-28 13:43:00 140 mm[Hg] Jelena Seybold - pressure External Diastolic blood 2023-04-28 13:43:00 100 mm[Hg] Beth y Seybold - pressure External Heart rate 2023-04-28 13:43:00 102 /min Jelena Umaña eybold - External Body weight 2023-04-28 13:43:00 135.898 kg Jelena Umaña eybold - External BMI 2023-04-28 13:43:00 53.07 kg/m2 Jelena Umaña eybold - External Systolic blood 2023-04-24 13:49:00 140 mm[Hg] Jelena Seybold - pressure External Diastolic blood 2023-04-24 13:49:00 103 mm[Hg] Beth booth Seybold - pressure External Heart rate 2023-04-24 13:49:00 79 /min Jelena Umaña eybold - External Body temperature 2023-04-24 13:49:00 36.61 Mera Ashlie shah Seybold - External Respiratory rate 2023-04-24 13:49:00 20 /min Ashlie shah Seybold - External Body height 2023-04-24 13:49:00 160 cm Jelena Umaña eybold - External Body weight 2023-04-24 13:49:00 131.09 kg Jelena Umaña eybold - External BMI 2023-04-24 13:49:00 51.19 kg/m2 Jelena Umaña eybold - External Oxygen saturation in 2023-04-24 13:49:00 [...] Body weight 2022-12-29 14:50:00 130.182 kg Jelena Umaañ eybold - External BMI 2022-12-29 14:50:00 50.84 [...] Body height 2022-12-08 15:56:00 160 cm Jelena shahbold - External Body weight 2022-12-08 15:56:00 [...] - External BMI 2022-09-09 14:45:00 50.31 kg/m2 Jeelna shahbold - External Oxygen saturation in 2022-09-09 14:45:00 99 /min Jelena Guevaratiffanymarcel - Arterial blood by External Pulse oximetry Systolic blood 2020-09-07 15:09:00 126 mm[Hg] Univer sity of pressure [place] [facility] Diastolic blood 2020-09-07 15:09:00 88 mm[Hg] Unive rsity of pressure [place] [facility] Heart rate 2020-09-07 15:09:00 76 /min Universi ty of [place] [facility] Body height 2020-09-07 15:09:00 160 cm Universi ty [facility] [place] [facility] Body weight 2020-09-07 15:09:00 114.306 kg Universi [facility] [place] [facility] BMI 2020-09-07 15:09:00 44.64 kg/m2 [facility] [place] [facility] Systolic blood 2020-09-07 15:09:00 126 mm[Hg] Univer sity of pressure [place] [facility] Diastolic blood 2020-09-07 15:09:00 88 mm[Hg] Unive rsity of pressure [place] [facility] Heart rate 2020-09-07 15:09:00 76 /min Universi ty of [place] [facility] Body height 2020-09-07 15:09:00 160 cm Universi ty of [place] [facility] Body weight 2020-09-07 15:09:00 114.306 kg Universi ty [facility] [place] [facility] BMI 2020-09-07 15:09:00 44.64 kg/m2 [facility]i [facility] [place] [facility] Respiratory rate 2020-08-02 16:44:00 20 /min Univ ersity of [place] [facility] Body height 2020-08-02 16:44:00 160 cm [facility]i ty [facility] [place] [facility] Body weight 2020-08-02 16:44:00 114.352 kg [facility] [place] [facility] BMI 2020-08-02 16:44:00 44.66 kg/m2 [facility] [place] [facility] Systolic blood 2020-08-02 16:44:00 113 mm[Hg] Univer sity of pressure [place] [facility] Diastolic blood 2020-08-02 16:44:00 66 mm[Hg] Unive rsity of pressure [place] [facility] Heart rate 2020-08-02 16:44:00 76 /min Universi ty [facility] [place] [facility] Body temperature 2020-08-02 16:44:00 36 Mera Univ ersity of [place] [facility] Systolic blood 2020-05-17 16:06:00 125 mm[Hg] Univer sity of pressure [place] [facility] Diastolic blood 2020-05-17 16:06:00 76 mm[Hg] Unive rsity of pressure [place] [facility] Heart rate 2020-05-17 16:06:00 93 /min Universi ty of [place] [facility] Body temperature 2020-05-17 16:06:00 36.44 Mera Univ ersity of [place] [facility] Respiratory rate 2020-05-17 16:06:00 18 /min Univ ersity of [place] [facility] Body height 2020-05-17 16:06:00 160 cm Universi ty [facility] [place] [facility] Body weight 2020-05-17 16:06:00 105.688 kg [facility]i [facility] [place] [facility] BMI 2020-05-17 16:06:00 41.27 kg/m2 [facility] [place] [facility] Systolic blood 2020-03-08 15:04:00 108 mm[Hg] Univer sity of pressure [place] [facility] Diastolic blood 2020-03-08 15:04:00 69 mm[Hg] Unive rsity of pressure [place] [facility] Heart rate 2020-03-08 15:04:00 74 /min Universi ty [facility] [place] [facility] Body temperature 2020-03-08 15:04:00 36.61 Mera Univ ersity of [place] [facility] Respiratory rate 2020-03-08 15:04:00 20 /min Univ ersity of [place] [facility] Body height 2020-03-08 15:04:00 160 cm [facility]i ty [facility] [place] [facility] Body weight 2020-03-08 15:04:00 112.583 kg Universi ty [facility] [place] [facility] BMI 2020-03-08 15:04:00 43.97 kg/m2 [facility] [place] [facility] Systolic blood 2019-10-25 14:56:00 128 mm[Hg] Univer sity of pressure [place] [facility] Diastolic blood 2019-10-25 14:56:00 92 mm[Hg] Unive rsity of pressure [place] [facility] Heart rate 2019-10-25 14:56:00 72 /min Universi ty [facility] [place] [facility] Body temperature 2019-10-25 14:56:00 36.67 Mera Univ ersity of [place] [facility] Body height 2019-10-25 14:56:00 160 cm [facility]i [facility] [place] [facility] Body weight 2019-10-25 14:56:00 110.904 kg [facility]i [facility] [place] [facility] BMI 2019-10-25 14:56:00 43.31 kg/m2 [facility] [place] [facility] Oxygen saturation in 2019-10-25 14:56:00 99 /min University of Arterial blood by [place] [facility] nereida Pulse oximetry Branch Systolic blood 2019-10-24 17:13:00 120 mm[Hg] Univer sity of pressure [place] [facility] Diastolic blood 2019-10-24 17:13:00 81 mm[Hg] Unive rsity of pressure [place] [facility] Heart rate 2019-10-24 17:13:00 75 /min Universi ty [facility] [place] [facility] Respiratory rate 2019-10-24 17:13:00 19 /min Univ ersity of [place] [facility] Body height 2019-10-24 17:13:00 160 cm Universi [facility] [place] [facility] Body weight 2019-10-24 17:13:00 110.133 kg [facility]i [facility] [place] [facility] BMI 2019-10-24 17:13:00 43.01 kg/m2 [facility] [place] [facility] Oxygen saturation in 2019-10-24 17:13:00 99 /min University of Arterial blood by [facility] nereida Pulse oximetry Branch Systolic blood 2019-09-29 16:38:00 93 mm[Hg] Univer sity of pressure [place] [facility] Diastolic blood 2019-09-29 16:38:00 64 mm[Hg] Unive rsity of pressure [place] [facility] Heart rate 2019-09-29 16:38:00 77 /min Universi ty [facility] [place] [facility] Body temperature 2019-09-29 16:38:00 36.5 Mera Univ ersity of [place] [facility] Respiratory rate 2019-09-29 16:38:00 20 /min Univ ersity of [place] [facility] Body height 2019-09-29 16:38:00 160 cm [facility]i ty [facility] [place] [facility] Body weight 2019-09-29 16:38:00 109.77 kg Universi [facility] BMI 2019-09-29 16:38:00 42.87 kg/m2 Universi ty [facility] Systolic blood 2019-04-28 14:39:00 105 mm[Hg] Univer sity of pressure [facility] Diastolic blood 2019-04-28 14:39:00 62 mm[Hg] [facility] Heart rate 2019-04-28 14:39:00 87 /min Universi ty [facility] Body temperature 2019-04-28 14:39:[address] [facility] 2019-04-28 14:39:00 18 /min [facility] Body height 2019-04-28 14:39:00 160 cm Universi [facility] Body weight 2019-04-28 14:39:00 123.832 kg [facility] BMI 2019-04-28 14:39:00 48.36 kg/m2 [facility] Systolic blood 2023-04-16 15:02:00 149 mm[Hg] [facility] Diastolic blood 2023-04-16 15:02:00 86 mm[Hg] [facility] Heart rate 2023-04-16 15:02:00 68 /min [facility] Body temperature 2023-04-16 15:02:00 36.67 Mera [facility] Respiratory rate 2023-04-16 15:02:00 17 /min [facility] Oxygen saturation in 2023-04-16 15:02:00 98 /min [facility] Arterial blood by Medical Ce nter Pulse oximetry BMI 2023-04-16 11:02:00 48.18 kg/m2 [facility] Body height 2023-04-16 11:02:00 160 cm [facility] Body weight 2023-04-16 11:02:00 123.378 kg [facility] BP Systolic 2022-09-10 11:46:00 168 [...] Date / Time Performing Clinician Source Performed CT BRAIN WITHOUT IV 2023-04-16 12:20:30 Juan Carlos [facility] CONTRAST [facility] URINALYSIS W/ REFLEX 2023-04-16 11:53[facility] CULT[facility] RAPID DRUG SCREEN, URINE 2023-04-16 11:53:00 Juan Carlos [facility] CBC W/PLT COUNT & AUTO 2023-04-16 11:30:00 Juan Carlos [facility] DIFFERENTIAL [facility] COMPREHENSIVE METABOLIC 2023-04-16 11:30:00 Rachel Mahoney [facility] PANEL [facility] PROTHROMBIN TIME/INR 2023-04-16 11:30[facility]00 [facility] 2023-04-16 11:30:00 [facility] [place] MANUAL DIFFERENTIAL 2023-04-16 11:30:00 AvniRachel lucas [facility] [place] CBC W/PLT COUNT & AUTO 2023-04-16 11:30:00 Rachel Mahoney [facility] Medical DIFFERENTIAL [facility] EKG-SCANNED 2023-04-16 00:00:00 Provider [facility] REFERRAL- 2020-09-27 06:01:00 Doctor Lucina, [facility] REQUEST/RESPONSE [facility] MR KNEE LEFT WO CONTRAST 2020-08-20 18:12:04 Alexandre Delgado [facility] NOTICE OF PRIVACY 2020-08-02 06:01:00 Doctor Lucina, [facility] PRACTICES [facility] AGREEMENTS AUTHORIZATIONS 2020-08-02 06:01:00 Doctor Lucina, [facility] AND IRREVOCABLE [facility] ASSIGNMENTS (FORM 2001) VACCINATIONS - CONSENTS, 2020-05-17 05:01:00 Doctor Lucina, [facility] ELIGIBILITY, HISTORY [facility] XR KNEE 3 VW LEFT 2020-03-16 13:13:36 Alexandre Delgado [facility] SCANNED LAB RESULTS 2020-03-08 05:01:00 Doctor Lucina, [facility] ASSIGNMENT OF BENEFITS 2020-02-10 13:57:41 [facility] - PRESCRIPTION / 2019-09-08 06:01:00 Doctor Lucina, [facility] ORDER [facility] AGREEMENTS AUTHORIZATIONS 2019-04-28 05:01:00 Doctor Lucina, [facility] AND IRREVOCABLE [facility] ASSIGNMENTS (FORM 2001) 67583 Ecg Routine Ecg 2018-06-14 00:00:00 W/least 12 Lds W/i r Plan of Care Planned Activity Planned Date Details Comments Source Future Scheduled 2029-04-29 DTAP/TDAP/TD VACCINES ([address] [facility] 00:00:00 - Td or Tdap) [code = Medica l Center DTAP/TDAP/TD VACCINES (2 - Td or Tdap)] Future Scheduled 2023-05-01 Influenza Vaccine (#1) [facility] 00:[facility]00 [code = Influenza Vaccine Me dical Center (#1)] Future Scheduled 2022-08-[address] [facility] 00:00:00 (12+) [code = DEPRESSION Med ical Center SCREENING (12+)] Future Scheduled 2021-12-14 COVID-19 VACCINE (3 - [facility] 00[facility]00 Booster for [facility] series) [code = COVID-19 VACCINE (3 - Booster for Moderna series)] Future Scheduled 2014 Screening for malignant [facility] 00:00:00 neoplasm of cervix Medical C enter (procedure) [code = 581944105] Future Scheduled 2013 Lipid panel (procedure) [facility] 00:00:00 [code = 50035861] Medical Ce nter Future Scheduled 2011 HEPATITIS C SCREENING [facility] 00:00:00 [code = HEPATITIS C Medical Center SCREENING] Future Scheduled [address] [facility] 00:00:00 virus screening Medical Cent er (procedure) [code = 250611844] Future Scheduled [address] [facility] 00:00:00 Counseling and Screening [facility] (12+) [code = Tobacco Cessation Counseling and Screening (12+)] Goal Plan of Care Note [code = 40133-3] Goal Plan of Care Note [code = 58959-3] Goal Plan of Care Note [code = 03702-0] Goal Plan of Care Note [code = 86495-9] Goal Plan of Care Note [code = 98765-8] Goal Plan of Care Note [code = 70426-8] Goal Plan of Care Note [code = 77615-6] Goal Plan of Care Note [code = 77484-8] Goal Plan of Care Note [code = 46616-6] Goal Plan of Care Note [code = 22302-8] Goal Plan of Care Note [code = 23582-6] Goal Plan of Care Note [code = 02003-3] Goal Plan of Care Note [code = 00278-7] Goal Plan of Care Note [code = 33363-1] Goal Plan of Care Note [code = 61784-5] Goal Plan of Care Note [code = 92305-4] Goal Plan of Care Note [code = 76023-5] Goal Plan of Care Note [code = 49458-2] Goal Plan of Care Note [code = 93486-8] Goal Plan of Care Note [code = 38925-5] Goal Plan of Care Note [code = 29413-2] Goal Plan of Care Note [code = 17358-9] Goal Plan of Care Note [code = 30476-5] Goal Plan of Care Note [code = 41214-4] Goal Plan of Care Note [code = 39667-8] Goal Plan of Care Note [code = 76305-6] Goal Plan of Care Note [code = 19663-7] Goal Plan of Care Note [code = 34198-8] Goal Plan of Care Note [code = 94828-6] Goal Plan of Care Note [code = 95495-0] Goal Plan of Care Note [code = 79738-8] Goal Plan of Care Note [code = 67105-5] Goal Plan of Care Note [code = 72452-8] Goal Plan of Care Note [code = 62348-8] Goal Plan of Care Note [code = 45884-3] Goal Plan of Care Note [code = 62510-6] Goal Plan of Care Note [code = 41785-2] Goal Plan of Care Note [code = 82585-1] Goal Plan of Care Note [code = 37399-0] Goal Plan of Care Note [code = 86080-4] Goal Plan of Care Note [code = 64990-8] Goal Plan of Care Note [code = 65018-6] Goal Plan of Care Note [code = 39624-2] Goal Plan of Care Note [code = 41703-9] Goal Plan of Care Note [code = 90206-5] Goal Plan of Care Note [code = 78109-5] Goal Plan of Care Note [code = 00013-9] Goal Plan of Care Note [code = 19301-0] Goal Plan of Care Note [code = 67832-6] Goal Plan of Care Note [code = 49680-7] Goal Plan of Care Note [code = 59683-4] Goal Plan of Care Note [code = 53629-7] Goal Plan of Care Note [code = 97352-6] Goal Plan of Care Note [code = 45416-5] Goal Plan of Care Note [code = 37085-7] Goal Plan of Care Note [code = 48388-0] Goal Plan of Care Note [code = 01350-6] Goal Plan of Care Note [code = 82130-5] Goal Plan of Care Note [code = 57159-5] Goal Plan of Care Note [code = 99828-5] Goal Plan of Care Note [code = 46866-6] Goal Plan of Care Note [code = 98151-3] Goal Plan of Care Note [code = 48621-5] Goal Plan of Care Note [code = 68194-4] Goal Plan of Care Note [code = 72124-3] Goal Plan of Care Note [code = 53829-1] Goal Plan of Care Note [code = 82632-2] Goal Plan of Care Note [code = 95820-3] Goal Plan of Care Note [code = 01847-6] Goal Plan of Care Note [code = 24357-8] Goal Plan of Care Note [code = 79309-6] Goal Plan of Care Note [code = 38362-1] Goal Plan of Care Note [code = 15191-3] Goal Plan of Care Note [code = 31002-1] Goal Plan of Care Note [code = 06662-3] Goal Plan of Care Note [code = 15816-3] Goal Plan of Care Note [code = 59186-3] Goal Plan of Care Note [code = 42487-1] Goal Plan of Care Note [code = 14340-7] Goal Plan of Care Note [code = 36160-4] Goal Plan of Care Note [code = 04897-1] Goal Plan of Care Note [code = 47654-5] Goal Plan of Care Note [code = 22292-0] Goal Plan of Care Note [code = 49643-2] Goal Plan of Care Note [code = 28039-2] Goal Plan of Care Note [code = 32576-6] Goal Plan of Care Note [code = 21741-2] Goal Plan of Care Note [code = 75261-8] Goal Plan of Care Note [code = 63930-7] Goal Plan of Care Note [code = 68236-8] Goal Plan of Care Note [code = 10150-2] Goal Plan of Care Note [code = 27382-1] Goal Plan of Care Note [code = 47023-0] Goal Plan of Care Note [code = 71799-0] Goal Plan of Care Note [code = 39054-6] Goal Plan of Care Note [code = 07006-6] Goal Plan of Care Note [code = 81763-9] Goal Plan of Care Note [code = 37100-7] Goal Plan of Care Note [code = 71353-1] Goal Plan of Care Note [code = 80308-9] Goal Plan of Care Note [code = 72728-6] Goal Plan of Care Note [code = 16572-3] Goal Plan of Care Note [code = 18276-8] Goal Plan of Care Note [code = 48840-7] Goal Plan of Care Note [code = 27410-6] Goal Plan of Care Note [code = 75169-4] Goal Plan of Care Note [code = 98424-7] Goal Plan of Care Note [code = 90732-0] Goal Plan of Care Note [code = 21696-9] Encounters Start End Encounter Admission Attending Care Care Encounter Source Date/Time Date/Time Type Type Clinicians Facility Department ID 2023-11-17 2023-11-17 Outpatient JELENA VICK [id number] Jelena 09:00:00 09:00:00 DARLIN Eatono ld 2023-08-12 2023-08-12 Outpatient JELENA BADILLO [id number] Jelena 10:30:00 10:30:00 SHIRLEY Seyb old 2023-07-10 2023-07-10 Outpatient JELENA KIMBALL [id number] Jelena 10:00:00 10:00:00 LEI Eatono ld 2023-05-28 2023-05-28 Outpatient DORA WINN [id number] Jelena 10:45:00 10:45:00 Seybol d 2023-05-15 2023-05-15 Outpatient JELENA SCHMIDT [id number] Jelena 00:00:00 00:00:00 JONN Seybol d 2023-05-14 2023-05-14 Outpatient ANGELOJELENA [id number] Jelena 10:15:00 10:15:00 LUKE Seybol d 2023-05-14 2023-05-14 Outpatient JELENA GARY [id number] Jelena 00:00:00 00:00:00 ROBYN Seybol d 2023-05-13 2023-05-13 Outpatient ANGELOJELENA [id number] Jelena 10:15:00 10:15:00 LUKE Seybol d 2023-05-13 2023-05-13 Outpatient PREJELENA ALVA [id number] Jelena 00:00:00 00:00:00 BYRON Seybol d 2023-05-12 2023-05-12 Outpatient GAURAV PURVIS [id number] Jelena 00:00:00 00:00:00 Seybol d 2023-05-12 2023-05-12 Outpatient JELENA GARY [id number] Jelena 00:00:00 00:00:00 ROBYN Seybol d 2023-05-11 2023-05-11 Outpatient JELENA GARY [id number] Jelena 09:00:00 09:00:00 ROBYN Seybol d 2023-05-06 2023-05-06 Outpatient LAB90 JELENA BOWLES [id number] Jelena 11:20:00 11:20:00 Seybol d 2023-05-06 2023-05-06 Outpatient JELENA GARY [id number] Jelena 10:30:00 10:30:00 ROBYN Seybol d 2023-05-01 2023-05-01 Outpatient JELENA GARY [id number] Jelena 00:00:00 00:00:00 ROBYN Seybol d 2023-04-28 2023-04-28 Outpatient JELENA VICK [id number] Jelena 09:00:00 09:00:00 DARLIN Seybo ld 2023-04-26 2023-04-26 Outpatient JELENA GARY [id number] Jelena 00:00:00 00:00:00 ROBYN Seybol d 2023-04-24 2023-04-24 Outpatient NIKKIJAYRO GAURAV BOWLES [id number] Jelena 09:00:00 09:00:00 Seybol d 2023-04-23 2023-04-23 Outpatient RUSSELL JELENA BOWLES [id number] Jelena 00:00:00 00:00:00 MD ANKITA Seybol d 2023-04-20 2023-04-20 Outpatient GAURAV PURVIS [id number] Jelena 10:30:00 10:30:00 Seybol d 2023-04-20 2023-04-20 Outpatient JELENA BRIONES [id number] Jelena 00:00:00 00:00:00 AHMED Seybol d 2023-04-17 2023-04-17 Outpatient JELENA NEVAREZ [id number] Jelena 00:00:00 00:00:00 LASUNDRA Seybo ld 2023-04-17 2023-04-17 Outpatient JELENA GARY [id number] Jelena 00:00:00 00:00:00 ROBYN Seybol d 2023-04-16 2023-04-16 Emergency ER [place], [facility] Emergency [id number] [facility] 10:54:00 15:04:00 [place] 2023-04-16 2023-04-16 Emergency [place], [facility] [id number] [facility] 10:54:00 15:04:00 [facility] 2023-04-16 2023-04-16 Emergency ER PENAFLOR, [facility] [id number] [facility] 12:07:04 12:07:04 RACHEL 2023-04-16 2023-04-16 Outpatient JELENA STOKES [id number] Jelena 10:30:00 10:30:00 SPENSER Seybol d 2023-04-16 2023-04-16 Outpatient JELENA WANG [id number] Jelena 00:00:00 00:00:00 KELSEY Seybol d 2023-04-13 2023-04-13 Outpatient GAURAV PURVIS JELENA BOWLES [id number] Jelena 10:30:00 10:30:00 Seybol d 2023-03-25 2023-03-25 Outpatient GAURAV PURVIS JELENA BOWLES [id number] Jelena 00:00:00 00:00:00 Seybol d 2023-03-23 2023-03-23 Outpatient ALYSSA PURVISDANDRE BOWLES [id number] Jelena 10:30:00 10:30:00 Seybol d 2023-03-19 2023-03-19 Outpatient JELENA GARY [id number] Jelena 00:00:00 00:00:00 ROBYN Seybol d 2023-03-18 2023-03-18 Outpatient JELENA MALHOTRA [id number] Jelena 00:00:00 00:00:00 BYRON Seybol d 2023-03-17 2023-03-17 Outpatient STEPHANIESEYONL JELENA BOWLES [id number] Jelena 00:00:00 00:00:00 MD ANKITA Seybol d 2023-03-16 2023-03-16 Outpatient JELENA GARY [id number] Jelena 00:00:00 00:00:00 ROBYN Seybol d 2023-03-11 2023-03-11 Outpatient JELENA BRIONES [id number] Jelena 11:15:00 11:15:00 AHMED Seybol d 2023-03-09 2023-03-09 Outpatient JELENA GARY [id number] Jelena 00:00:00 00:00:00 ROBYN Seybol d 2023-03-05 2023-03-05 Outpatient JELENA BRIONES [id number] Jelena 00:00:00 00:00:00 AHMED Seybol d 2023-03-02 2023-03-02 Outpatient JELENA GARY [id number] Jelena 00:00:00 00:00:00 ROBYN Seybol d 2023-02-20 2023-02-20 Outpatient JELENA GARY [id number] Jelena 00:00:00 00:00:00 ROBYN Seybol d 2023-02-20 2023-02-20 Outpatient HUNDL, JELENA BOWLES [id number] Jelena 00:00:00 00:00:00 ROBYN Seybol d 2023-02-19 2023-02-19 Outpatient PREZAS, JELENA BOWLES [id number] Jelena 00:00:00 00:00:00 BYRON Seybol d 2023-02-18 2023-02-18 Outpatient HUNDL, JELENA BOWLES [id number] Jelena 11:00:00 11:00:00 ROBYN Seybol d 2023-02-16 2023-02-16 Outpatient HUNDL, JELENA BOWLES [id number] Jelena 00:00:00 00:00:00 ROBYN Seybol d 2023-02-06 2023-02-06 Outpatient NEVAREZJELENA DESHPANDE [id number] Jelena 00:00:00 00:00:00 LASUNDRA Seybo ld 2023-02-06 2023-02-06 Outpatient ALVAROJELENA [id number] Jelena 00:00:00 00:00:00 SHANEIKA Seybo ld 2023-02-05 2023-02-05 Outpatient LAB90 JELENA BOWLES [id number] Jelena 09:10:00 09:10:00 Seybol d 2023-02-05 2023-02-05 Outpatient PREZAJELENA Umaña [id number] Jelena 00:00:00 00:00:00 BYRON Seybol d 2023-02-05 2023-02-05 Outpatient JELENA TREVIÑO [id number] Jelena 00:00:00 00:00:00 OLNEA Seybol d 2023-02-02 2023-02-02 Outpatient JELENA STOKES [id number] Jelena 09:30:00 09:30:00 SPENSER Seybol d 2023-02-02 2023-02-02 Outpatient JELENA GARY [id number] Jelena 00:00:00 00:00:00 ROBYN Seybol d 2023-02-02 2023-02-02 Outpatient JELENA GARY [id number] Jelena 00:00:00 00:00:00 ROBYN Seybol d 2023-01-28 2023-01-28 Outpatient SEWIELAM, JELENA BOWLES [id number] Jelena 11:00:00 11:00:00 AHMED Seybol d 2023-01-18 2023-01-18 Outpatient HUNDL, JELENA BOWLES [id number] Jelena 00:00:00 00:00:00 ROBYN Seybol d 2023-01-17 2023-01-17 Outpatient PREZAS, JELENA BOWLES [id number] Jelena 00:00:00 00:00:00 BYRON Seybol d 2023-01-14 2023-01-14 Outpatient HUNDL, JELENA BOWLES [id number] Jelena 00:00:00 00:00:00 ROBYN Seybol d 2023-01-07 2023-01-07 Outpatient HUNDL, JELENA BOWLES [id number] Jelena 00:00:00 00:00:00 ROBYN Seybol d 2023-01-06 2023-01-06 Outpatient KAWAR, GAURAV JELENA BOWLES [id number] Jelena 00:00:00 00:00:00 Seybol d 2023-01-06 2023-01-06 Outpatient HUNDL, JELENA BOWLES [id number] Jelena 00:00:00 00:00:00 ROBYN Seybol d 2023-01-06 2023-01-06 Outpatient MERRILL, JELENA BOWLES [id number] Jelena 00:00:00 00:00:00 JAROD Seybol d 2023-01-01 2023-01-01 Outpatient HUNDL, JELENA BOWLES [id number] Jelena 10:30:00 10:30:00 ROBYN Seybol d 2023-01-01 2023-01-01 Outpatient HUNDL, JELENA BOWLES [id number] Jelena 00:00:00 00:00:00 ROBYN Seybol d 2022-12-31 2022-12-31 Outpatient PLABPA JELENA BOWLES [id number] Jelena 09:00:00 09:00:00 Seybol d 2022-12-30 2022-12-30 Outpatient HUNDL, JELENA BOWLES [id number] Jelena 10:30:00 10:30:00 ROBYN Seybol d 2022-12-29 2022-12-29 Outpatient LAB90 JELENA BOWLES [id number] Jelena 11:20:00 11:20:00 Seybol d 2022-12-29 2022-12-29 Outpatient COOKIE JELENA BOWLES [id number] Jelena 10:30:00 10:30:00 ROBYN Seybol d 2022-12-29 2022-12-29 Outpatient COOKIE JELENA BOWLES [id number] Jelena 00:00:00 00:00:00 ROBYN Seybol d 2022-12-29 2022-12-29 Outpatient SEWIELLITO JELENA BOWLES [id number] Jelean 00:00:00 00:00:00 AHMED Seybol d 2022-12-26 2022-12-26 Outpatient PLABPA JELENA BOWLES [id number] Jelena 09:00:00 09:00:00 Seybol d 2022-12-26 2022-12-26 Outpatient JELENA BYNUM [id number] Jelena 00:00:00 00:00:00 JENNIFER Seybol d 2022-12-26 2022-12-26 Outpatient PREJELENA ALVA [id number] Jelena 00:00:00 00:00:00 BYRON Seybol d 2022-12-25 2022-12-25 Outpatient GAURAV PURVIS [id number] Jelena 00:00:00 00:00:00 Seybol d 2022-12-24 2022-12-24 Outpatient PLABPA JELENA BOWLES [id number] Jelena 11:30:00 11:30:00 Seybol d 2022-12-22 2022-12-22 Outpatient KAWGAURAV DIAL [id number] Jelena 09:00:00 09:00:00 Seybol d 2022-12-22 2022-12-22 Outpatient JELENA GARY [id number] Jelena 00:00:00 00:00:00 ROBYN Seybol d 2022-12-20 2022-12-20 Outpatient NANCYJELENA Umaña [id number] Jelena 00:00:00 00:00:00 JALYN Seybol d 2022-12-19 2022-12-19 Outpatient PREZAJELENA Umaña [id number] Jelena 00:00:00 00:00:00 BYRON Seybol d 2022-12-18 2022-12-18 Outpatient JELENA GARY [id number] Jelena 00:00:00 00:00:00 ROBYN Seybol d 2022-12-18 2022-12-18 Outpatient JELENA GARY [id number] Jelena 00:00:00 00:00:00 ROBYN Seybol d 2022-12-15 2022-12-15 Outpatient STEPHANIESEYONL JELENA BOWLES [id number] Jelena 00:00:00 00:00:00 MD ANKITA Seybol d 2022-12-15 2022-12-15 Outpatient JELENA MARTINEZ [id number] Jelena 00:00:00 00:00:00 MANOLO Seybol d 2022-12-15 2022-12-15 Outpatient JELENA GIVENS [id number] Jelena 00:00:00 00:00:00 GAUTAM Seybol d 2022-12-12 2022-12-12 Outpatient JELENA GIVENS [id number] Jelena 10:30:00 10:30:00 GAUTAM Seybol d 2022-12-12 2022-12-12 Outpatient JELENA BOWLES [id number] Jelena 00:00:00 00:00:00 Seybol d 2022-12-12 2022-12-12 Outpatient PREJELENA ALVA [id number] Jelena 00:00:00 00:00:00 BYRON Seybol d 2022-12-11 2022-12-11 Outpatient PREZASJELENA [id number] Jelena 00:00:00 00:00:00 BYRON Seybol d 2022-12-08 2022-12-08 Outpatient MERRILLJELENA [id number] Jelena 10:40:00 10:40:00 JAROD Seybol d 2022-12-08 2022-12-08 Outpatient JELENA BOWLES [id number] Jelena 10:25:00 10:25:00 Seybol d 2022-12-08 2022-12-08 Outpatient KAWARALYSSAAD JELENA BOWLES [id number] Jelena 08:30:00 08:30:00 Seybol d 2022-12-08 2022-12-08 Outpatient FARIDAL JELENA BOWLES [id number] Jelena 00:00:00 00:00:00 ROBYN Seybol d 2022-12-04 2022-12-04 Outpatient PREZASJELENA [id number] Jelena 00:00:00 00:00:00 BYRON Seybol d 2022-12-04 2022-12-04 Outpatient MERRILLJELENA [id number] Jelena 00:00:00 00:00:00 JAROD Seybol d 2022-12-04 2022-12-04 Outpatient JELENA BOWLES [id number] Jelena 00:00:00 00:00:00 Seybol d 2022-12-04 2022-12-04 Outpatient JELENA GARY [id number] Jelena 00:00:00 00:00:00 ROBYN Seybol d 2022-12-01 2022-12-01 Outpatient FARIDALJELENA [id number] Jelena 00:00:00 00:00:00 ROBYN Seybol d 2022-11-27 2022-11-27 Outpatient PLVIVEK [id number] Jelena 10:30:00 10:30:00 Seybol d 2022-11-27 2022-11-27 Outpatient MYRADHA BOWLES [id number] Jelena 00:00:00 00:00:00 MD ANKITA Seybol d 2022-11-27 2022-11-27 Outpatient MYRADHA BOWLES [id number] Jelena 00:00:00 00:00:00 MD ANKITA Seybol d 2022-11-21 2022-11-21 Outpatient JELENA GARY [id number] Jelena 00:00:00 00:00:00 ROBYN Seybol d 2022-11-20 2022-11-[address] [facility] [id number] Jarod 10:08:21 10:08:21 [id number] F Lee 2022-11-19 2022-11-19 Outpatient COOKIE, JELENA JELENA [id number] Jelena 00:00:00 00:00:00 ROBYN Seybol d 2022-11-14 2022-11-14 Outpatient FARIDAL, JELENA BOWLES [id number] Jelena 00:00:00 00:00:00 ROBYN Seybol d 2022-11-14 2022-11-14 Outpatient JELENA BOWLES [id number] Jelena 00:00:00 00:00:00 Seybol d 2022-11-11 2022-11-11 Outpatient COOKIE, JELENA BOWLES [id number] Jelena 00:00:00 00:00:00 ROBYN Seybol d 2022-11-07 2022-11-07 Outpatient NAVA JELENA BOWLES [id number] Jelena 00:00:00 00:00:00 DARLIN Seybo ld 2022-11-07 2022-11-07 Outpatient NAVA JELENA BOWLES [id number] Jelena 00:00:00 00:00:00 DARLIN Seybo ld 2022-11-07 2022-11-07 Outpatient NAVA JELENA BOWLES [id number] Jelena 00:00:00 00:00:00 DARLIN Seybo ld 2022-11-07 2022-11-07 Outpatient NAVA JELENA BOWLES [id number] Jelena 00:00:00 00:00:00 DARLIN Seybo ld 2022-11-07 2022-11-07 Outpatient COOKIE, JELENA BOWLES [id number] Jelena 00:00:00 00:00:00 ROBYN Seybol d 2022-11-07 2022-11-07 Outpatient FARIDAL, JELENA BOWLES [id number] Jelena 00:00:00 00:00:00 ROBYN Seybol d 2022-11-07 2022-11-07 Outpatient HUNDL, JELENA BOWLES [id number] Jelena 00:00:00 00:00:00 ROBYN Seybol d 2022-11-07 2022-11-07 Outpatient FARIDAL, JELENA BOWLES [id number] Jelena 00:00:00 00:00:00 ROBYN Seybol d 2022-11-07 2022-11-07 Outpatient COOKIE JELENA BOWLES [id number] Jelena 00:00:00 00:00:00 ROBYN Seybol d 2022-11-07 2022-11-07 Outpatient COOKIE JELENA BOWLES [id number] Jelena 00:00:00 00:00:00 ROBYN Seybol d 2022-10-30 2022-10-30 Outpatient [facility] [id number] Jarod 08:26:44 08:26:44 [id number] F Lee 2022-10-30 2022-10-30 Outpatient COOKIE JELENA BOWLES [id number] Jelena 00:00:00 00:00:00 ROBYN Seybol d 2022-10-29 2022-10-29 Outpatient JELENA GARY [id number] Jelena 00:00:00 00:00:00 ROBYN Seybol d 2022-10-29 2022-10-29 Outpatient JELENA GARY [id number] Jelena 00:00:00 00:00:00 ROBYN Seybol d 2022-10-29 2022-10-29 Outpatient JELENA GARY [id number] Jelena 00:00:00 00:00:00 ROBYN Seybol d 2022-10-29 2022-10-29 Outpatient JELENA VICK [id number] Jelena 00:00:00 00:00:00 DARLIN Eatono ld 2022-10-28 2022-10-28 Outpatient [facility] JELENA BOWLES [id number] Jelena 09:45:00 09:45:00 Seybol d 2022-10-28 2022-10-28 Outpatient JELENA VICK [id number] Jelena 09:00:00 09:00:00 DARLIN Seybo ld 2022-10-23 2022-10-23 Outpatient JELENA GARY [id number] Jelena 00:00:00 00:00:00 ROBYN Seybol d 2022-10-22 2022-10-22 Outpatient JELENA GARY [id number] Jelena 08:00:00 08:00:00 ROBYN Seybol d 2022-10-13 2022-10-13 Outpatient SFA [facility]FA [id number] Jarod 11:24:16 11:24:16 [id number] F Lee 2022-10-10 2022-10-10 Outpatient LAB90 JELENA BOWLES [id number] Jelena 09:25:00 09:25:00 Seybol d 2022-10-10 2022-10-10 Outpatient HUNDL, JELENA BOWLES [id number] Jelena 08:30:00 08:30:00 ROBYN Seybol d 2022-10-10 2022-10-10 Outpatient HUNDL, JELENA BOWLES [id number] Jelena 00:00:00 00:00:00 ROBYN Seybol d 2022-10-09 2022-10-09 Outpatient HUNDL, JELENA BOWLES [id number] Jelena 08:30:00 08:30:00 ROBYN Seybol d 2022-10-09 2022-10-09 Outpatient HUNDL, JELENA BOWLES [id number] Jelena 00:00:00 00:00:00 ROBYN Seybol d 2022-09-30 2022-09-30 Outpatient HUNDL, JELENA BOWLES [id number] Jelena 00:00:00 00:00:00 ROBYN Seybol d 2022-09-26 2022-09-26 Outpatient HUNDL, JELENA BOWLES [id number] Jelena 00:00:00 00:00:00 ROBYN Seybol d 2022-09-24 2022-09-24 Outpatient LAB90 JELENA BOWLES [id number] Jelena 17:05:00 17:05:00 Seybol d 2022-09-24 2022-09-24 Outpatient HUNDL, JELENA BOWLES [id number] Jelena 11:00:00 11:00:00 ROBYN Seybol d 2022-09-22 2022-09-22 Outpatient SFA SFA [id number] Jarod 09:21:24 09:21:24 0123 F Lee 2022-09-22 2022-09-22 Outpatient HUNDL, JELENA BOWLES [id number] Jelena 00:00:00 00:00:00 ROBYN Seybol d 2022-09-172022-09-17 Outpatient JELENA GARY JELENA [id number] Jelena 00:00:00 00:00:00 ROBYN Seybol d 2022-09-12 2022-09-12 Outpatient JELENA GARY JELENA [id number] Jelena 00:00:00 00:00:00 ROBYN Seybol d 2022-09-11 2022-09-11 Outpatient JELENA GARY JELENA [id number] Jelena 00:00:00 00:00:00 ROBYN Seybol d 2022-09-10 2022-09-10 Outpatient SFA SFA [id number] Jarod 11:36:44 11:36:44 0111 F Lee 2022-09-10 2022-09-10 Outpatient [id number] 00:00:00 00:00:00 Visit 87da-47c3 7da-47c3-b -nh46-1k7 o06-7c8g1m [id number] 2022-09-09 2022-09-09 Outpatient LAB90 JELENA JELENA [id number] Jelena 09:30:00 09:30:00 Setiffanyol tierra 2022-09-09 2022-09-09 Outpatient JELENA GARY JELENA [id number] Jelena 08:30:00 08:30:00 ROBYN Guevaraybol tierra 2022-09-09 2022-09-09 Outpatient JELENA GARY JELENA [id number] Jelena 00:00:00 00:00:00 ROBYN Seybol d 2022-09-04 2022-09-04 Outpatient SFA SFA [id number] Jarod 08:29:33 08:29:33 0105 F Lee 2022-09-04 2022-09-04 Outpatient [id number] 00:00:00 00:00:00 Visit 8am9-1xb7 bd9-4ec7-b -bbc8-d95 bc8-d957ab [id number] 2022-08-28 2022-08-28 Outpatient SFA SFA [id number] Jarod 11:35:11 11:35:11 1229 F Lee 2022-08-28 2022-08-28 Outpatient [id number] [id number] 00:00:00 00:00:00 Visit 010b-47c2 10b-47c2-b -e5w0-q89 2i0-s979y0 6e0253k8o [id number] 2022-05-24 2022-05-24 emergency [id number] 15:15:00 18:38:00 2381-551e 81-551e-843 36 -843c-ca8 [id number] 5eb 2022-03-15 2022-03-15 Outpatient [facility]:00 10:56:00 FLO 0716 [facility] 2020-11-29 2020-11-29 [facility] [id number] [facility] 15:30:00 15:30:00 ANNEMARIE klein f [facility] 2020-10-23 2020-10-23 Telephone Alexandre Delgado 1.2.840.114 [id number] Univers 00:00:00 00:00:00 [facility] 350.1.13.10 it y [id number] [address] 2020-10-23 2020-10-23 Telephone Alexandre Delgado 1.2.840.114 [id number] 00:00:00 00:00:00 [facility] 350.1.13.10 HEALTH 4.2.7.2.686 UNIT [id number] [facility] 2020-10-12 2020-10-12 [facility] [id number] Univers 09:00:00 09:00:[address] [facility] 2020-09-27 2020-09-27 Orders Doctor CONNER 1.2.840.114 [id number] Univers 00:00:00 00:00:00 Only Unassigned, LESLEY 350.1.13.10 ity of [place] [facility] 4.2.7.2.686 Marvel as [id number] [address] 2020-09-27 2020-09-27 Orders Doctor CONNER 1.2.840.114 [id number] 00:00:00 00:00:00 Only Unassigned, LESLEY 350.1.13.10 [facility] 4.2.7.2.686 [id number] [facility] 2020-09-20 2020-09-20 [facility] 1.2.840.114 [id number] Univers 00:00:00 00:00:00 Shey Cabral 350.1.13.10 it y of Surgical 4.2.7.2.686 Marvel as Specialti [phone] Me dical es 198 [facility] 2020-09-20 2020-09-20 [facility] 1.2.840.114 [id number] 00:00:00 00:00:00 Shey Cabral 350.1.13.10 Surgical 4.2.7.2.686 Specialti [id number] es [address] [place] 2020-09-07 2020-09-07 [facility] 1.2.830.930 [id number] [facility] 09:03:53 09:52:26 Visit Shey Cabral 350.1.13.10 it y of Surgical 4.2.7.2.686 Marvel as Specialti [id number] Me dical es 198 [facility] 2020-09-07 2020-09-07 [facility] 1.2.461.059 [id number] 09:03:53 09:52:26 Visit Shey Cabral 350.1.13.10 Surgical 4.2.7.2.686 Specialti [phone] es [address] [place] [address] 2020-09-07 2020-09-07 Outpatient R TASH [facility] [id number] Univers 09:00:00 09:00:[address] [facility] 2020-08-30 2020-08-30 Outpatient R TASH [facility] [id number] Univers 08:30:00 08:30:[address] [facility] 2020-08-20 2020-08-20 [facility] Alexandre Delgado [facility] 1.2.840.114 [id number] Univers 10:11:58 23:59:00 Encounter Health 350.1.13.10 [place] [phone] [facility] [address] ([facility]) 2020-08-20 2020-08-20 Outpatient Gracia DELGADO [facility] [id number] Univers 10:11:58 23:59:[address] [facility] 2020-08-16 2020-08-16 [facility] 1.2.840.114 [id number] Univers 00:00:00 00:00:00 [facility] 350.1.13.10 it y of [place] 4.2.7.2.686 Marvel as Professio [phone] [facility] [address] [place] [address] One 2020-08-02 2020-08-02 Office Care, Ang Primary [place] 1.2.840 .114 [id number] Univers 10:40:31 12:20:58 Visit Alexandre Delgado [facility] 350.1.13.10 ity of [place] [id number] [facility] [address] 2020-08-02 2020-08-02 Outpatient Gracia DELGADO [facility] [id number] Univers 10:30:00 10:30:[address] [facility] 2020-08-02 2020-08-02 Orders Doctor CONNER 1.2.840.114 [id number] Univers 00:00:00 00:00:00 Only Unassigned, LESLEY 350.1.13.10 ity of [place] [facility] 4.2.7.2.686 Marvel as [phone] [facility] [address] 2020-05-31 2020-05-31 [facility] [id number] Univers 08:50:00 08:50:[address] [facility] 2020-05-24 2020-05-24 Outpatient Gracia DELGADO [facility] [id number] Univers 00:00:00 00:00:[address] [facility] 2020-05-22 2020-05-22 Outpatient [facility] [id number] Univers 09:50:00 09:50:[address] [facility] 2020-05-17 2020-05-21 Office Care, Ang Primary [place] 1.2.840 .114 [id number] Univers 11:05:31 09:49:52 Visit Alexandre Delgado [facility] 350.1.13.10 it[place] of [place] [phone] [facility] [address] [place] 2020-05-21 2020-05-21 Outpatient R SANDY ALEXANDRE [facility] [id number] Univers 00:00:00 00:00:[address] [facility] 2020-05-17 2020-05-17 Outpatient R SANDY [facility] [id number] Univers 10:30:00 10:30:[address] [facility] 2020-05-17 2020-05-17 Orders Doctor PRIETO 1.2.840.114 [id number] Univers 00:00:00 00:00:00 Only Unassigned, LESLEY 350.1.13.10 ity of [place] [facility] 4.2.7.2.686 Marvel as [phone] [address] 2020-05-08 2020-05-08 [facility] [id number] Univers 08:30:00 08:30:00 ANNEMARIE magaña [facility] 2020-05-08 2020-05-08 [facility] 1.2.840.114 [id number] Univers 07:05:41 07:35:41 ne Visit Annemarie AVILES 350.1.13.10 ity of CARE [place].2.[place].2.686 [place] C[place] AT [phone] Sd suman BYRD 2 [facility] 2020-05-01 2020-05-01 Outpatient [facility] [id number] Univers 09:30:00 09:30:00 ANNEMARIE magaña [facility] 2020-04-24 2020-04-24 [facility] [id number] Univers 09:30:00 09:30:00 ANNEMARIE magaña [facility] 2020-03-08 2020-03-20 Office Care, Ang Primary [place] 1.2.840 .114 [id number] Univers 10:02:59 09:15:53 Visit Alexandre Delgado [facility] 350.1.13.10 ity of [place] [id number] [facility] [address] 2020-03-16 2020-03-16 Hospital Alexandre Delgado [facility] 1.2.840.114 [id number] Univers 07:51:00 23:59:00 Encounter [place] 350.1.13.10 ity of [place] [id number] [facility] [address] 2020-03-16 2020-03-16 Outpatient R ALEXANDRE DELGADO [facility] [id number] Univers 00:00:00 00:00:00 ity of [facility] 2020-03-13 2020-03-13 Telephone Alexandre DelgadoKAYLAH 1.2.840.114 [id number] Univers 00:00:00 00:00:00 [facility] 350.1.13.10 it y of [place].2.[place] PRIMARY [phone] [address] 2020-03-08 2020-03-08 Outpatient R ALEXANDRE DELGADO [facility] [id number] Univers 10:00:00 10:00:00 ity of [facility] 2020-03-08 2020-03-08 Orders Doctor CONNER 1.2.840.114 [id number] Univers 00:00:00 00:00:00 Only Unassigned, LESLEY 350.1.13.10 ity of [place] [facility] 4.2.7.2.686 Marvel as [phone] [facility] [address] 2020-02-29 2020-02-29 Telephone Alexandre DelgadoKAYLAH 1.2.840.114 [id number] Univers 00:00:00 00:00:00 [facility] 350.1.13.10 it y of [place] [phone] [address] 2020-02-14 2020-02-14 Telephone Fer [facility] 1.2.687.334 [id number] Univers 00:00:00 00:00:00 Qiajacey Gaspar 350.1.13.10 ity of [place].2.[place] Profess[place] [phone] Sd dical nal 059 [facility] 2020-02-10 2020-02-10 Outpatient R [facility] [id number] Univers 09:00:00 09:00:00 ity of [facility] 2020-02-10 2020-02-10 Orders Doctor CONNER 1.2.840.114 [id number] Univers 00:00:00 00:00:00 Only Unassigned, LESLEY 350.1.13.10 ity of [place] [facility] 4.2.7.2.686 Marvel as [phone] [facility] [address] [place] 2020-01-24 2020-01-24 Outpatient R FER [facility] [id number] Univers 10:40:00 10:40:00 DANNIE arshad o f [facility] 2020-01-24 2020-01-24 [facility] 1.2.840.114 [id number] Univers 07:57:10 08:17:10 ne Visit Dannie Gaspar 350.1.13.10 ity [facility] [place].2.7.2.[place] Profess[place] [phone] Sd dical nal 059 [facility] 2020-01-18 2020-01-18 Outpatient R [facility] [id number] Univers 13:00:00 13:00:[address] [facility] 2019-11-10 2019-11-10 Telephone Alexandre Delgado 1.2.840.114 [id number] Univers 00:00:00 00:00:00 [facility] 350.1.13.10 it y of [place] [id number] [facility] [address] [place] 2019-11-03 2019-11-03 Outpatient R ALEXANDRE DELGADO [facility] [id number] Univers 08:15:00 08:15:[address] [facility] 2019-10-25 2019-10-25 Office Dajuan [facility] 1.2.840.114 [id number] Univers 08:48:06 09:27:18 Visit Annemarie AVILES 350.1.13.10 ity of C[place].2.[place] C[place] AT [phone] Sd suman VICTORY 072 [facility] 2019-10-25 2019-10-25 Outpatient R DAJUAN [facility] [id number] Univers 09:00:00 09:00:00 ANNEMARIE klein gómez [facility] 2019-10-24 2019-10-24 [facility] 1.2.840.114 [id number] Univers 10:57:17 15:44:20 Visit Dannie [place] 350.1.13.10 ity [facility] 4.2.7.2.[place] Profess[place] [phone] Sd suman nal 059 [facility] 2019-10-24 2019-10-24 [facility] [id number] Univers 11:00:00 11:00:00 DANNIE klein gómez [facility] 2019-09-29 2019-09-29 Office Care, Aries GAL[place]GOS 1.2.840 .114 [id number] Univers 10:38:08 11:16:42 Visit Alexandre Delgado [facility] 350.1.13.10 ity of [place] [id number] [facility] [address] [place] 2019-09-29 2019-09-29 Outpatient R ALEXANDRE DELGADO [facility] 007 [id number] Univers 10:00:00 11:16:42 ity of [facility] 2019-09-14 2019-09-14 Telephone Alexandre Delgado 1.2.840.114 [id number] Univers 00:00:00 00:00:00 [facility] 350.1.13.10 it y of [place] [id number] [facility] [address] [place] 2019-09-08 2019-09-08 Orders Doctor CONNER 1.2.840.114 [id number] Univers 00:00:00 00:00:00 Only Unassigned, LESLEY 350.1.13.10 ity of [place] [facility] 4.2.7.2.686 Marvel as [phone] [facility] [address] 2019-05-05 2019-05-05 Telephone Alexandre Delgado 1.2.840.114 [id number] Univers 00:00:00 00:00:00 E [facility] 350.1.13.10 it y of [place] [id number] [facility] [address] 2019-04-28 2019-04-28 Office Care, Aries GAL[place]GOS 1.2.840 .114 [id number] Univers 09:26:40 11:38:19 Visit Alexandre Delgado [facility] 350.1.13.10 ity of [place].2.[place] [id number] [facility] [address] 2019-04-28 2019-04-28 Orders Doctor CONNER 1.2.840.114 [id number] Univers 00:00:00 00:00:00 Only Unassigned, LESLEY 350.1.13.10 ity of [place] [facility] 4.2.7.2.686 Marvel as [phone] [place] [address] Branch Results Test Description Test Time Test [...] 762) Normal CBC W/PLT COUNT & AUTO [id number] 14:30:06 Test Item Value Reference Range Interpretation [...] PERCENT (BEAKER) (test code = 2801) TROPONIN [id number] 14:12:53 Test Item Value Reference Range Interpretation [...] failure, acidosis, acute neurological disease, and persistent tachyarrhythmia.Support Manager ID - DSENSONCOMPREHENSIVE METABOLIC [id number] 14:10:56 Test Item Value Reference Range Interpretation [...] not as accur ate as Creatinine Sharon thee in predicting glom erular filtration rate . Estimated GFR is not appl icable for dialysis patien ts Support Manager ID - DSENSONOperator ID - DSENSONOperator ID - DSENSONOperator ID - DSENSONOperator ID - DSENSONOperator ID - DSENSONOperator ID - DSENSONOperator ID - DSENSONOperator ID - DSENSONOperator ID - DSENSONOperator ID - DSENSONOperator ID - DSENSONOperator ID - DSENSONOperator ID - DSENSONOperatorID - DSENSONOperator ID - DSENSONOperator ID - DSENSONOperator ID - DSENSONOperator ID - DSENSONPROTHROMBIN TIME/[id number] 14:03:14 Test Item Value Reference Range Interpretation Comments PROTIME (BEAKER) 10.3 seconds 9.3-12.0 Final Infor mation (test code = 759) (Auto Outp ut) INR (BEAKER) (test 0.96 See_Comment Final Inf ormation code = 370) (Auto Output) [Automated mess age] The system Global Loc[employer] generated this result transmitted ref erence range: <=5.90. The reference range was not used to int erpret this result as normal/abnormal . RECOMMENDED COUMADIN/WARFARIN INR THERAPY RANGESSTANDARD DOSE: 2.0 - 3.0 Includes: PROPHYLAXIS for venous thrombosis, systemic embolization; TREATMENT for venous thrombosis and/or pulmonary embolus.HIGH RISK: Target INR is 2.5-3.5 for patients with mechanical heart valves.CT BRAIN WITHOUT IV [id number] 12:52:28[facility] : 1995 Sex: [...] Signed By: Krystle Quiroz04/16/2023 12:54 CDTWorkstation Name: [id number] w/Microscopic + Reflex to Culture 2023-04-16 12:27:52 Test Item Value Reference Range Interpretation Comments Color, UA (test Yellow code = 5778-6) Clarity, UA (test Slightly Cloudy code = 5767-9) Specific [place], 1.001-1.035 UA (test code = 5811-5) pH, UA (test code = 6.0 5.0-8.0 5803-2) Protein, UA (test Negative Negative code = 26994-8) Glucose, UA (test Negative Negative code = 365) Ketones, UA (test Negative Negative code = 2514-8) Bilirubin, UA (test Negative Negative code = 43525-1) Blood, UA (test Negative Negative code = 04238-4) Nitrite, UA (test Negative Negative code = 5802-4) Leukocytes, UA Negative Negative (test code = 5799-2) Urobilinogen, UA 0.2 (test code = 26693-2) Bacteria, UA (test Few code = 62885-1) Mucus (test code = Few 8247-9) Ca Oxalate Lilly, UA Moderate (test code = 67033-5) RBC, UA (test code <5 See_Comment [Automat ed = 799-7) message] The sy stem which generated this result transmitted reference range : /HPF. The refer ence range was not u sed to interpret th is result as normal/abnormal . WBC, UA (test code <5 See_Comment [Automat ed = 97483-1) message] The sy stem which generated this result transmitted reference range : /HPF. The refer ence range was not u sed to interpret th is result as normal/abnormal . SQUAMOUS EPITHELIAL <5 See_Comment [Automa inge (test code = message] The sy stem 62475-0) which generated this result transmitted reference range : /HPF. The refer ence range was not u sed to interpret th is result as normal/abnormal . Specimen Source (test code = 2795) [facility] UR[facility] [id number] 12:27:52 Test Item Value Reference Range Interpretation [...] = 1663) SOURCE(BEAKER) (test code = 2795) Rapid drug screen, [id number] 12:19:24 Test Item Value Reference Range Interpretation Comments Barbiturate Screen Negative Negative (test code = 64507-4) Benzodiazepine Screen Positive Negative A (test code = 05142-7) Cocaine (Metab.) Negative Negative Screen (test code = 3397-7) Methadone Screen (test Negative Negative code = 53439-8) Opiate Screen (test Negative Negative code = 64555-4) Cannabinoid Screen Positive Negative A (test code = 70938-2) Amph/Methamph Screen Negative Negative (test code = 77423-0) Phencyclidine Screen Negative Negative (test code = 30780-6) pH, UA (test code = 6.0 5.0-8.0 5803-2) INES (test code = INES) DRUG CUTOFF CONC.Cocaine 300 ng/mL Cannabinoid 50 ng/mLBenzodiazepine 200 ng/mLBarbiturate 200 ng/mLPhencyclidine 25 ng/mLOpiate 300 ng/mLMethadone 300 ng/mLAmphetamine/ 1000 ng/mL Methamphetamine This assay provides an unconfirmed qualitative test result for the clinical management of patients in emergency situations. Chain of custody not maintained. Some zjjn-htj-scuopjy medications, as well as adulterants, may cause inaccurate results. Clinical correlation should be applied. A more comprehensive drug screen or confirmation of a detected drug may be performed upon request.Support Manager ID - DSENSONOperator ID - DSENSONOperator ID - DSENSONOperator ID - DSENSONOperator ID - DSENSONOperator ID - DSENSONOperator ID - DSENSONOperator ID - DSENSON Lab Interpretation Abnormal (test code = 52170-2) [facility], [id number] 12:19:24 Test Item Value Reference Range Interpretation [...] situations. Chain of custody not maintained. Some muut-arn-rqpdreu medications, as well as adulterants, may cause inaccurate results. Clinical correlation should be applied. A more comprehensive drug screen or confirmation of a detected drug may be performed upon request.Support Manager ID - DSENSONOperator ID - DSENSONOperator ID - DSENSONOperator ID - DSENSONOperator ID - DSENSONOperator ID - DSENSONOperator ID - DSENSONOperator ID - DSENSONTSH, THIRD GENERATION 2022-09-11 04:08:38 Test Item Value Reference Range Interpretation Comments TSH, THIRD 2.060 UIU/ML 0.400-4.100 UNLESS OTHERWI SE GENERATION (test INDICATED, ALL TESTING code = 2821) PERFORMED [facility], [facility]. [address] [place] [id number] [place] [address] DIRECTOR: [place] AGUIRRE M.D. CLIA NUMBER [id number] CAP ACCREDITATION N O. [id number] COMPREHENSIVE METABOLIC [id number] 03:23:31 Test Item Value Reference Range Interpretation Comments GLUCOSE (test code = 80 MG/DL 70-99 2216) BUN (test code = 7 MG/DL 6-20 2207) CREATININE (test 0.55 MG/DL 0.60-1.30 L code = 221) eGFR (2020 CKD-EPI) 127 >60 (test code = 11207) ML/MIN/1.73 CALC BUN/CREAT (test 13 RATIO 6-28 code = 2235) SODIUM (test code = 138 MEQ/L 122-262 9210) POTASSIUM (test code 3.9 MEQ/L 3.5-5.4 = 2227) CHLORIDE (test code 104 MEQ/L 95-107 = 2214) CARBON DIOXIDE (test 21 MEQ/L 19-31 code = 220) CALCIUM (test code = 9.5 MG/DL 8.5-10.5 2208) PROTEIN, TOTAL (test 7.9 G/DL 6.1-8.3 code = 222) ALBUMIN (test code = 4.2 G/DL 3.5-5.2 2200) CALC GLOBULIN (test 3.7 G/DL 1.9-3.7 code = 224) CALC A/G RATIO (test 1.1 RATIO 1.0-2.6 code = 223) BILIRUBIN, TOTAL 0.4 MG/DL See_Comment [Automated message] [...] U/L 5-40 2218) CBC W/AUTO DIFF WITH [id number] 02:00:05 Test Item Value Reference Range Interpretation [...] RBCS 0.00 K/UL 0.00-0.11 (test code = 93606) CT/NG, NAAT, [id number] 20:52:50 Test Item Value Reference Range Interpretation Comments GONORRHEA, NAAT NEGATIVE NEGATIVE Note: Testi ng is (test code = 90905) performe d with [employer] EDEL 6800/8800 systems using real-time polymerase cali n reaction (PCR) method. CHLAMYDIA, NAAT NEGATIVE NEGATIVE Note: Testi ng is (test code = 55424) performe d with [employer] EDEL 6800/8800 systems using real-time polymerase cali n reaction (PCR) method. HEPATITIS PANEL, [id number] 05:02:20 Test Item Value Reference Range Interpretation Comments HEPATITIS A IgM (test NON-REACTIVE NON-REACTIVE code = 87127) HEPATITIS B CORE IgM NON-REACTIVE NON-REACTIVE (test code = 4644) HEPATITIS B SURF AG NON-REACTIVE NON-REACTIVE (test code = 2739) HEPATITIS C ANTIBODY NON-REACTIVE NON-REACTIVE (test code = 4675) INTERPRETATION (NOTE) Hepatitis A HEPATITIS A: (test code sero logy shows no = 2552) evidence of acu te hepatitis A. INTERPRETATION (NOTE) Hepatitis B HEPATITIS B: (test code sero logy shows no = 23037) evidence of acu te hepatitis B and no indication of exposure to hepatitis B vir us in the previous alejandra eight months. INTERPRETATION (NOTE) Hepatitis C HEPATITIS C: (test code sero logy shows no = 48096) evidence of exposure to hepatitisC viru s at this time. I t can take up to 12 months after exposure tothe hepatitis C vir us for antibodies to become detectab le in the blood in certain patient s. HIV 1/2 4TH GEN, RFLX [id number] 05:02:20 Test Item Value Reference Range Interpretation Comments HIV 1/2 4TH GEN, NON-REACTIVE NON-REACTIVE UNLESS OTH ERWISE RFLX CONF (test INDICATED, A LL TESTING code = 3514) PERFORMED [facility] PATH[facility] [address] [place] [address] DIRECTOR: [place] AGUIRRE M.D. CLIA NUMBER [id number] CAP ACCREDITATION N O. [id number] RPR REFLEX TO T. PALLIDUM - [id number] 04:28:08 Test Item Value Reference Range Interpretation Comments RPR (test code = 83543) NON-REACTIVE NON-REACTIVE RPR TITER (test code = 3500) NOT INDIC. TITER NOT INDIC. CT/NG, TMA, [id number] 00:00:00 Test Item Value Reference Range Interpretation Comments GONORRHEA, NAAT (test code = 24744) NEGATIVE CHLAMYDIA, NAAT (test code = 53667) NEGATIVE CT/NG, TMA, [id number] 00:00:00 Test Item Value Reference Range Interpretation Comments GONORRHEA, NAAT (test code = 45496) NEGATIVE CHLAMYDIA, NAAT (test code = 57494) NEGATIVE RPR REFLEX TO T. PALLIDUM - [id number] 00:00:00 Test Item Value Reference Range Interpretation Comments RPR (test code = 83809) NON-REACTIVE RPR TITER (test code = 3500) NOT INDIC. TITER RPR REFLEX TO T. PALLIDUM - [id number] 00:00:00 Test Item Value Reference Range Interpretation Comments RPR (test code = 54508) NON-REACTIVE RPR TITER (test code = 3500) NOT INDIC. TITER ACUTE HEPATITIS [id number] 00:00:00 Test Item Value Reference Range Interpretation Comments HEPATITIS A IgM (test code = NON-REACTIVE 76441) HEPATITIS B CORE IgM (test code NON-REACTIVE = 4644) HEPATITIS B SURF AG (test code = NON-REACTIVE 2739) HEPATITIS C ANTIBODY (test code NON-REACTIVE = 4675) INTERPRETATION HEPATITIS A: (NOTE) (test code = 2552) INTERPRETATION HEPATITIS B: (NOTE) (test code = 60791) INTERPRETATION HEPATITIS C: (NOTE) (test code = 94458) ACUTE HEPATITIS [id number] 00:00:00 Test Item Value Reference Range Interpretation Comments HEPATITIS A IgM (test code = NON-REACTIVE 87241) HEPATITIS B CORE IgM (test code NON-REACTIVE = 4644) HEPATITIS B SURF AG (test code = NON-REACTIVE 2739) HEPATITIS C ANTIBODY (test code NON-REACTIVE = 4675) INTERPRETATION HEPATITIS A: (NOTE) (test code = 2552) INTERPRETATION HEPATITIS B: (NOTE) (test code = 51391) INTERPRETATION HEPATITIS C: (NOTE) (test code = 34566) HIV 1/2 4TH GEN, RFLX [id number] 00:00:00 Test Item Value Reference Range Interpretation Comments HIV 1/2 4TH GEN, RFLX CONF (test NON-REACTIVE code = 3514) HIV 1/2 4TH GEN, RFLX [id number] 00:00:00 Test Item Value Reference Range Interpretation Comments HIV 1/2 4TH GEN, RFLX CONF (test NON-REACTIVE code = 3514) VITAMIN D, 25 [id number] 03:25:23 Test Item Value Reference Range Interpretation [...] ALL TESTING PERFORM ED ATCLINICAL PATH OLOGY [facility], [address] [address] LABORATORY DIRE CTOR: Rebeca COBB. CLIA NUMBER [id number] CAP ACCREDITATION N O. [id number] HIV 1/2 4TH GEN, RFLX [id number] 03:00:39 Test Item Value Reference Range Interpretation Comments HIV 1/2 4TH GEN, RFLX CONF (test NON-REACTIVE NON-REACTIVE code = 3514) HIV AB/AG COMBO RFLX [id number] 00:00:00 Test Item Value Reference Range Interpretation Comments HIV 1/2 4TH GEN, RFLX CONF (test NON-REACTIVE code = 3514) HIV AB/AG COMBO RFLX [id number] 00:00:00 Test Item Value Reference Range Interpretation Comments HIV 1/2 4TH GEN, RFLX CONF (test NON-REACTIVE code = 3514) VITAMIN D, 25 [id number] 00:00:00 Test Item Value Reference Range Interpretation Comments VITAMIN D, 25 OH (test code = 4958) 27 NG/ML VITAMIN D, 25 [id number] 00:00:00 Test Item Value Reference Range Interpretation Comments VITAMIN D, 25 OH (test code = 4958) 27 NG/ML HIV AB/AG COMBO RFLX [id number] 00:00:00 Test Item Value Reference Range Interpretation Comments HIV 1/2 4TH GEN, RFLX CONF (test NON-REACTIVE code = 3514) HIV AB/AG COMBO RFLX [id number] 00:00:00 Test Item Value Reference Range Interpretation Comments HIV 1/2 4TH GEN, RFLX CONF (test NON-REACTIVE code = 3514) VITAMIN D, 25 [id number] 00:00:00 Test Item Value Reference Range Interpretation Comments VITAMIN D, 25 OH (test code = 4958) 27 NG/ML VITAMIN D, 25 [id number] 00:00:00 Test Item Value Reference Range Interpretation Comments VITAMIN D, 25 OH (test code = 4958) 27 NG/ML HIV AB/AG COMBO RFLX [id number] 00:00:00 Test Item Value Reference Range Interpretation Comments HIV 1/2 4TH GEN, RFLX CONF (test NON-REACTIVE code = 3514) HIV AB/AG COMBO RFLX [id number] 00:00:00 Test Item Value Reference Range Interpretation Comments HIV 1/2 4TH GEN, RFLX CONF (test NON-REACTIVE code = 3514) VITAMIN D, 25 [id number] 00:00:00 Test Item Value Reference Range Interpretation Comments VITAMIN D, 25 OH (test code = 4958) 27 NG/ML VITAMIN D, 25 [id number] 00:00:00 Test Item Value Reference Range Interpretation Comments VITAMIN D, 25 OH (test code = 4958) 27 NG/ML TSH, THIRD [id number] 00:19:50 Test Item Value Reference Range Interpretation Comments TSH, THIRD GENERATION (test code 1.090 UIU/ML 0.400-4.100 = 2821) [id number] 00:00:00 Test Item Value Reference Range Interpretation Comments TSH, THIRD GENERATION (test code 1.090 UIU/ML = 2821) [id number] 00:00:00 Test Item Value Reference Range Interpretation Comments TSH, THIRD GENERATION (test code 1.090 UIU/ML = 2821) [id number] 00:00:00 Test Item Value Reference Range Interpretation Comments TSH, THIRD GENERATION (test code 1.090 UIU/ML = 2821) [id number] 00:00:00 Test Item Value Reference Range Interpretation Comments TSH, THIRD GENERATION (test code 1.090 UIU/ML = 2821) [id number] 00:00:00 Test Item Value Reference Range Interpretation Comments TSH, THIRD GENERATION (test code 1.090 UIU/ML = 2821) [id number] 00:00:00 Test Item Value Reference Range Interpretation Comments TSH, THIRD GENERATION (test code 1.090 UIU/ML = 2821) [id number] 00:00:00 Test Item Value Reference Range Interpretation Comments TSH, THIRD GENERATION (test code 1.090 UIU/ML = 2821) [id number] 00:00:00 Test Item Value Reference Range Interpretation Comments TSH, THIRD GENERATION (test code 1.090 UIU/ML = 2821) [id number] 00:00:00 Test Item Value Reference Range Interpretation Comments TSH, THIRD GENERATION (test code 1.090 UIU/ML = 2821) LIPID [id number] 23:59:41 Test Item Value Reference Range Interpretation [...] MOREINFORMATION , SEE CLIENT ANNOUNCE MENT AT [email or web address] RISK RATIO LDL/HDL 1.79 RATIO <3.22 (test code = 2238) COMPREHENSIVE METABOLIC [id number] 23:59:41 Test Item Value Reference Range Interpretation Comments GLUCOSE (test code = 77 MG/DL 70-99 2216) BUN (test code = 8 MG/DL 6-20 2207) CREATININE (test 0.67 MG/DL 0.60-1.30 EFFECTIVE code = 2214) 08/12/2021, [facility] HAS IMPLEMENTED THE NKF-ASN RECOMME NDED 1CKD-EPI EGF R REFIT CALCULATI ON THAT DOES NOT INCLUDE A COEFFICIENT FOR RACE. FOR MORE INFORMATION, SE E ANNOUNCEMENT [email or web address] eGFR (2020 CKD-EPI) 122 >60 (test code = 70508) ML/MIN/1.73 CALC BUN/CREAT (test 12 RATIO 6-28 code = 223) SODIUM (test code = 141 MEQ/L 501-335 4702) POTASSIUM (test code 4.0 MEQ/L 3.5-5.4 = [...] = 92 U/L 5-40 H 2218) HEMOGLOBIN [id number] 03:14:31 Test Item Value Reference Range Interpretation Comments HEMOGLOBIN A1c (test code = 56486) 6.0 % 4.2-5.6 H CBC W/AUTO DIFF WITH [id number] 03:06:02 Test Item Value Reference Range Interpretation [...] RBCS 0.00 K/UL 0.00-0.11 (test code = 80681) CBC W/AUTO [id number] 00:00:00 Test Item Value Reference Range Interpretation [...] NUCLEATED RBCS (test code = 0.00 K/UL 37821) CBC W/AUTO [id number] 00:00:00 Test Item Value Reference Range Interpretation [...] NUCLEATED RBCS (test code = 0.00 K/UL 37723) CBC W/AUTO [id number] 00:00:00 Test Item Value Reference Range Interpretation [...] NUCLEATED RBCS (test code = 0.00 K/UL 99694) HEMOGLOBIN [id number] 00:00:00 Test Item Value Reference Range Interpretation Comments HEMOGLOBIN A1c (test code = 36688) 6.0 % HEMOGLOBIN [id number] 00:00:00 Test Item Value Reference Range Interpretation Comments HEMOGLOBIN A1c (test code = 02282) 6.0 % HEMOGLOBIN [id number] 00:00:00 Test Item Value Reference Range Interpretation Comments HEMOGLOBIN A1c (test code = 75799) 6.0 % LIPID [id number] 00:00:00 Test Item Value Reference Range Interpretation Comments CHOLESTEROL (test code = 2210) 124 MG/DL TRIGLYCERIDES (test code = 2232) 69 MG/DL HDL CHOLESTEROL (test code = 2220) 39 MG/DL CALC LDL CHOL (test code = 2237) 70 MG/DL RISK RATIO LDL/HDL (test code = 1.79 RATIO 2238) LIPID [id number] 00:00:00 Test Item Value Reference Range Interpretation Comments CHOLESTEROL (test code = 2210) 124 MG/DL TRIGLYCERIDES (test code = 2232) 69 MG/DL HDL CHOLESTEROL (test code = 2220) 39 MG/DL CALC LDL CHOL (test code = 2237) 70 MG/DL RISK RATIO LDL/HDL (test code = 1.79 RATIO 2238) COMPREHENSIVE METABOLIC [id number] 00:00:00 Test Item Value Reference Range Interpretation Comments GLUCOSE (test code = 2217) 77 MG/DL BUN (test code = 2208) 8 MG/DL CREATININE (test code = 2214) 0.67 MG/DL eGFR (2020 CKD-EPI) (test 122 ML/MIN/1.73 code = 60448) CALC BUN/CREAT (test code = 12 RATIO [...] code = 2219) 92 U/L COMPREHENSIVE METABOLIC [id number] 00:00:00 Test Item Value Reference Range Interpretation Comments GLUCOSE (test code = 2217) 77 MG/DL BUN (test code = 2208) 8 MG/DL CREATININE (test code = 2214) 0.67 MG/DL eGFR (2020 CKD-EPI) (test 122 ML/MIN/1.73 code = 73497) CALC BUN/CREAT (test code = 12 RATIO [...] code = 2219) 92 U/L CBC W/AUTO [id number] 00:00:00 Test Item Value Reference Range Interpretation [...] NUCLEATED RBCS (test code = 0.00 K/UL 50034) CBC W/AUTO [id number] 00:00:00 Test Item Value Reference Range Interpretation [...] NUCLEATED RBCS (test code = 0.00 K/UL 43238) CBC W/AUTO [id number] 00:00:00 Test Item Value Reference Range Interpretation [...] NUCLEATED RBCS (test code = 0.00 K/UL 69963) CBC W/AUTO [id number] 00:00:00 Test Item Value Reference Range Interpretation [...] NUCLEATED RBCS (test code = 0.00 K/UL 19986) HEMOGLOBIN [id number] 00:00:00 Test Item Value Reference Range Interpretation Comments HEMOGLOBIN A1c (test code = 45722) 6.0 % HEMOGLOBIN [id number] 00:00:00 Test Item Value Reference Range Interpretation Comments HEMOGLOBIN A1c (test code = 17097) 6.0 % HEMOGLOBIN [id number] 00:00:00 Test Item Value Reference Range Interpretation Comments HEMOGLOBIN A1c (test code = 68888) 6.0 % LIPID [id number] 00:00:00 Test Item Value Reference Range Interpretation Comments CHOLESTEROL (test code = 2210) 124 MG/DL TRIGLYCERIDES (test code = 2232) 69 MG/DL HDL CHOLESTEROL (test code = 2220) 39 MG/DL CALC LDL CHOL (test code = 2237) 70 MG/DL RISK RATIO LDL/HDL (test code = 1.79 RATIO 2238) LIPID [id number] 00:00:00 Test Item Value Reference Range Interpretation Comments CHOLESTEROL (test code = 2210) 124 MG/DL TRIGLYCERIDES (test code = 2232) 69 MG/DL HDL CHOLESTEROL (test code = 2220) 39 MG/DL CALC LDL CHOL (test code = 2237) 70 MG/DL RISK RATIO LDL/HDL (test code = 1.79 RATIO 2238) COMPREHENSIVE METABOLIC [id number] 00:00:00 Test Item Value Reference Range Interpretation Comments GLUCOSE (test code = 2217) 77 MG/DL BUN (test code = 2208) 8 MG/DL CREATININE (test code = 2214) 0.67 MG/DL eGFR (2020 CKD-EPI) (test 122 ML/MIN/1.73 code = 47331) CALC BUN/CREAT (test code = 12 RATIO [...] code = 2219) 92 U/L COMPREHENSIVE METABOLIC [id number] 00:00:00 Test Item Value Reference Range Interpretation Comments GLUCOSE (test code = 2217) 77 MG/DL BUN (test code = 2208) 8 MG/DL CREATININE (test code = 2214) 0.67 MG/DL eGFR (2020 CKD-EPI) (test 122 ML/MIN/1.73 code = 33346) CALC BUN/CREAT (test code = 12 RATIO [...] code = 2219) 92 U/L CBC W/AUTO [id number] 00:00:00 Test Item Value Reference Range Interpretation [...] NUCLEATED RBCS (test code = 0.00 K/UL 16542) CBC W/AUTO [id number] 00:00:00 Test Item Value Reference Range Interpretation [...] NUCLEATED RBCS (test code = 0.00 K/UL 93399) HEMOGLOBIN [id number] 00:00:00 Test Item Value Reference Range Interpretation Comments HEMOGLOBIN A1c (test code = 83718) 6.0 % HEMOGLOBIN [id number] 00:00:00 Test Item Value Reference Range Interpretation Comments HEMOGLOBIN A1c (test code = 55624) 6.0 % HEMOGLOBIN [id number] 00:00:00 Test Item Value Reference Range Interpretation Comments HEMOGLOBIN A1c (test code = 05231) 6.0 % LIPID [id number] 00:00:00 Test Item Value Reference Range Interpretation Comments CHOLESTEROL (test code = 2210) 124 MG/DL TRIGLYCERIDES (test code = 2232) 69 MG/DL HDL CHOLESTEROL (test code = 2220) 39 MG/DL CALC LDL CHOL (test code = 2237) 70 MG/DL RISK RATIO LDL/HDL (test code = 1.79 RATIO 2238) LIPID [id number] 00:00:00 Test Item Value Reference Range Interpretation Comments CHOLESTEROL (test code = 2210) 124 MG/DL TRIGLYCERIDES (test code = 2232) 69 MG/DL HDL CHOLESTEROL (test code = 2220) 39 MG/DL CALC LDL CHOL (test code = 2237) 70 MG/DL RISK RATIO LDL/HDL (test code = 1.79 RATIO 2238) COMPREHENSIVE METABOLIC [id number] 00:00:00 Test Item Value Reference Range Interpretation Comments GLUCOSE (test code = 2217) 77 MG/DL BUN (test code = 2208) 8 MG/DL CREATININE (test code = 2214) 0.67 MG/DL eGFR (2020 CKD-EPI) (test 122 ML/MIN/1.73 code = 22696) CALC BUN/CREAT (test code = 12 RATIO [...] code = 2219) 92 U/L COMPREHENSIVE METABOLIC [id number] 00:00:00 Test Item Value Reference Range Interpretation Comments GLUCOSE (test code = 2217) 77 MG/DL BUN (test code = 2208) 8 MG/DL CREATININE (test code = 2214) 0.67 MG/DL eGFR (2020 CKD-EPI) (test 122 ML/MIN/1.73 code = 97184) CALC BUN/CREAT (test code = 12 RATIO [...] 2219) 92 U/L MR KNEE LEFT WO [id number] 21:23:01 Stable MRI with lateral patellar subluxation [...] this study and agree with the abovereport.[facility] 2020-03-16 13:46:56 Large effusion. No fracture. EXAM: XR KNEE 3 VW LEFT HISTORY: new onset of instablity left knee with 2 falls in last 4 wks COMPARISON: None FINDINGS: Imaging of the left knee demonstrates a moderate si zed effusion. Alignmentis maintained. There is mild depression of the medial tibial plateau on thePAview. No fracture is appreciated. [facility], Radiant Results Inft User - 03/16/2020 8:48 AM CDTEXAM:XR KNEE 3 VW LEFTHISTORY:new onset of instablity left knee with 2 falls in last 4 wks COMPARISON:NoneFINDINGS: Imaging of the left knee demonstrates a moderate sized effusion. Alignmentis maintained. There is mild depression of the medial tibial plateau on thePA view. No fracture is appreciated.IMPRESSIONLarge effusion.No fracture.[facility], [id number] 00:00:00 Test Item Value Reference Range Interpretation Comments HCG, QUANTITATIVE (test code = <5 MIU/ML 2506) HCG, [id number] 00:00:00 Test Item Value Reference Range Interpretation Comments HCG, QUANTITATIVE (test code = <5 MIU/ML 2506) HCG, [id number] 00:00:00 Test Item Value Reference Range Interpretation Comments HCG, QUANTITATIVE (test code = <5 MIU/ML 2506) HCG, [id number] 00:00:00 Test Item Value Reference Range Interpretation Comments HCG, QUANTITATIVE (test code = <5 MIU/ML 2506) HCG, [id number] 00:00:00 Test Item Value Reference Range Interpretation Comments HCG, QUANTITATIVE (test code = <5 MIU/ML 2506) HCG, [id number] 00:00:00 Test Item Value Reference Range Interpretation Comments HCG, QUANTITATIVE (test code = <5 MIU/ML 2506) HCG, [id number] 00:00:00 Test Item Value Reference Range Interpretation Comments HCG, QUANTITATIVE (test code = <5 MIU/ML 2506) HCG, [id number] 00:00:00 Test Item Value Reference Range Interpretation Comments HCG, QUANTITATIVE (test code = <5 MIU/ML 2506) HCG, [id number] 00:00:00 Test Item Value Reference Range Interpretation Comments HCG, QUANTITATIVE (test code = <5 MIU/ML 2506) HCG, [id number] 00:00:00 Test Item Value Reference Range Interpretation Comments HCG, QUANTITATIVE (test TEST NOT PERFORMED code = 2506) MIU/ML HCG, [id number] 00:00:00 Test Item Value Reference Range Interpretation Comments HCG, QUANTITATIVE (test TEST NOT PERFORMED code = 2506) MIU/ML HCG, [id number] 00:00:00 Test Item Value Reference Range Interpretation Comments HCG, QUANTITATIVE (test TEST NOT PERFORMED code = 2506) MIU/ML HCG, [id number] 00:00:00 Test Item Value Reference Range Interpretation Comments HCG, QUANTITATIVE (test TEST NOT PERFORMED code = 2506) MIU/ML HCG, [id number] 00:00:00 Test Item Value Reference Range Interpretation Comments HCG, QUANTITATIVE (test TEST NOT PERFORMED code = 2506) MIU/ML HCG, [id number] 00:00:00 Test Item Value Reference Range Interpretation Comments HCG, QUANTITATIVE (test TEST NOT PERFORMED code = 2506) MIU/ML HCG, [id number] 00:00:00 Test Item Value Reference Range Interpretation Comments HCG, QUANTITATIVE (test TEST NOT PERFORMED code = 2506) MIU/ML HCG, [id number] 00:00:00 Test Item Value Reference Range Interpretation Comments HCG, QUANTITATIVE (test TEST NOT PERFORMED code = 2506) MIU/ML HCG, [id number] 00:00:00 Test Item Value Reference Range Interpretation Comments HCG, QUANTITATIVE (test TEST NOT PERFORMED code = 2506) MIU/ML CHLAMYDIA, AMPLIFIED, [id number] 00:00:00 Test Item Value Reference Range Interpretation Comments CHLAMYDIA, TMA (test code = 48997) NEGATIVE CHLAMYDIA, AMPLIFIED, [id number] 00:00:00 Test Item Value Reference Range Interpretation Comments CHLAMYDIA, TMA (test code = 99740) NEGATIVE GC, AMPLIFIED, [id number] 00:00:00 Test Item Value Reference Range Interpretation Comments GONORRHEA, TMA (test code = 17472) NEGATIVE GC, AMPLIFIED, [id number] 00:00:00 Test Item Value Reference Range Interpretation Comments GONORRHEA, TMA (test code = 41191) NEGATIVE CHLAMYDIA, AMPLIFIED, [id number] 00:00:00 Test Item Value Reference Range Interpretation Comments CHLAMYDIA, TMA (test code = 28009) NEGATIVE CHLAMYDIA, AMPLIFIED, [id number] 00:00:00 Test Item Value Reference Range Interpretation Comments CHLAMYDIA, TMA (test code = 08542) NEGATIVE GC, AMPLIFIED, [id number] 00:00:00 Test Item Value Reference Range Interpretation Comments GONORRHEA, TMA (test code = 74090) NEGATIVE GC, AMPLIFIED, [id number] 00:00:00 Test Item Value Reference Range Interpretation Comments GONORRHEA, TMA (test code = 95818) NEGATIVE CHLAMYDIA, AMPLIFIED, [id number] 00:00:00 Test Item Value Reference Range Interpretation Comments CHLAMYDIA, TMA (test code = 13932) NEGATIVE CHLAMYDIA, AMPLIFIED, [id number] 00:00:00 Test Item Value Reference Range Interpretation Comments CHLAMYDIA, TMA (test code = 37942) NEGATIVE GC, AMPLIFIED, [id number] 00:00:00 Test Item Value Reference Range Interpretation Comments GONORRHEA, TMA (test code = 19072) NEGATIVE GC, AMPLIFIED, [id number] 00:00:00 Test Item Value Reference Range Interpretation Comments GONORRHEA, TMA (test code = 87664) NEGATIVE HIV AB/AG COMBO RFLX [id number] 00:00:00 Test Item Value Reference Range Interpretation Comments HIV 1/2 4TH GEN, RFLX CONF (test NON-REACTIVE code = 3514) HIV AB/AG COMBO RFLX [id number] 00:00:00 Test Item Value Reference Range Interpretation Comments HIV 1/2 4TH GEN, RFLX CONF (test NON-REACTIVE code = 3514) ACUTE HEPATITIS [id number] 00:00:00 Test Item Value Reference Range Interpretation Comments HEPATITIS A IgM (test code = NON-REACTIVE 57707) HEPATITIS B CORE IgM (test code NON-REACTIVE = 4644) HEPATITIS B SURF AG (test code = NON-REACTIVE 2739) HEPATITIS C ANTIBODY (test code NON-REACTIVE = 4675) INTERPRETATION HEPATITIS A: (NOTE) (test code = 2552) INTERPRETATION HEPATITIS B: (NOTE) (test code = 51387) INTERPRETATION HEPATITIS C: (NOTE) (test code = 37741) ACUTE HEPATITIS [id number] 00:00:00 Test Item Value Reference Range Interpretation Comments HEPATITIS A IgM (test code = NON-REACTIVE 77149) HEPATITIS B CORE IgM (test code NON-REACTIVE = 4644) HEPATITIS B SURF AG (test code = NON-REACTIVE 2739) HEPATITIS C ANTIBODY (test code NON-REACTIVE = 4675) INTERPRETATION HEPATITIS A: (NOTE) (test code = 2552) INTERPRETATION HEPATITIS B: (NOTE) (test code = 91025) INTERPRETATION HEPATITIS C: (NOTE) (test code = 00716) [id number] 00:00:00 Test Item Value Reference Range Interpretation Comments RPR RESULT (test code = NON-REACTIVE 3501) RPR TITER (test code = 3500) NOT INDIC. TITER [id number] 00:00:00 Test Item Value Reference Range Interpretation Comments RPR RESULT (test code = NON-REACTIVE 3501) RPR TITER (test code = 3500) NOT INDIC. TITER [id number] 00:00:00 Test Item Value Reference Range Interpretation Comments RPR RESULT (test code = NON-REACTIVE 3501) RPR TITER (test code = 3500) NOT INDIC. TITER HIV AB/AG COMBO RFLX [id number] 00:00:00 Test Item Value Reference Range Interpretation Comments HIV 1/2 4TH GEN, RFLX CONF (test NON-REACTIVE code = 3514) HIV AB/AG COMBO RFLX [id number] 00:00:00 Test Item Value Reference Range Interpretation Comments HIV 1/2 4TH GEN, RFLX CONF (test NON-REACTIVE code = 3514) HIV AB/AG COMBO RFLX [id number] 00:00:00 Test Item Value Reference Range Interpretation Comments HIV 1/2 4TH GEN, RFLX CONF (test NON-REACTIVE code = 3514) ACUTE HEPATITIS [id number] 00:00:00 Test Item Value Reference Range Interpretation Comments HEPATITIS A IgM (test code = NON-REACTIVE 28739) HEPATITIS B CORE IgM (test code NON-REACTIVE = 4644) HEPATITIS B SURF AG (test code = NON-REACTIVE 2739) HEPATITIS C ANTIBODY (test code NON-REACTIVE = 4675) INTERPRETATION HEPATITIS A: (NOTE) (test code = 2552) INTERPRETATION HEPATITIS B: (NOTE) (test code = 00989) INTERPRETATION HEPATITIS C: (NOTE) (test code = 48566) ACUTE HEPATITIS [id number] 00:00:00 Test Item Value Reference Range Interpretation Comments HEPATITIS A IgM (test code = NON-REACTIVE 74893) HEPATITIS B CORE IgM (test code NON-REACTIVE = 4644) HEPATITIS B SURF AG (test code = NON-REACTIVE 2739) HEPATITIS C ANTIBODY (test code NON-REACTIVE = 4675) INTERPRETATION HEPATITIS A: (NOTE) (test code = 2552) INTERPRETATION HEPATITIS B: (NOTE) (test code = 42451) INTERPRETATION HEPATITIS C: (NOTE) (test code = 71916) [id number] 00:00:00 Test Item Value Reference Range Interpretation Comments RPR RESULT (test code = NON-REACTIVE 3501) RPR TITER (test code = 3500) NOT INDIC. TITER [id number] 00:00:00 Test Item Value Reference Range Interpretation Comments RPR RESULT (test code = NON-REACTIVE 3501) RPR TITER (test code = 3500) NOT INDIC. TITER [id number] 00:00:00 Test Item Value Reference Range Interpretation Comments RPR RESULT (test code = NON-REACTIVE 3501) RPR TITER (test code = 3500) NOT INDIC. TITER HIV AB/AG COMBO RFLX [id number] 00:00:00 Test Item Value Reference Range Interpretation Comments HIV 1/2 4TH GEN, RFLX CONF (test NON-REACTIVE code = 3514) ACUTE HEPATITIS [id number] 00:00:00 Test Item Value Reference Range Interpretation Comments HEPATITIS A IgM (test code = NON-REACTIVE 83761) HEPATITIS B CORE IgM (test code NON-REACTIVE = 4644) HEPATITIS B SURF AG (test code = NON-REACTIVE 2739) HEPATITIS C ANTIBODY (test code NON-REACTIVE = 4675) INTERPRETATION HEPATITIS A: (NOTE) (test code = 2552) INTERPRETATION HEPATITIS B: (NOTE) (test code = 49926) INTERPRETATION HEPATITIS C: (NOTE) (test code = 35815) ACUTE HEPATITIS [id number] 00:00:00 Test Item Value Reference Range Interpretation Comments HEPATITIS A IgM (test code = NON-REACTIVE 76754) HEPATITIS B CORE IgM (test code NON-REACTIVE = 4644) HEPATITIS B SURF AG (test code = NON-REACTIVE 2739) HEPATITIS C ANTIBODY (test code NON-REACTIVE = 4675) INTERPRETATION HEPATITIS A: (NOTE) (test code = 2552) INTERPRETATION HEPATITIS B: (NOTE) (test code = 47878) INTERPRETATION HEPATITIS C: (NOTE) (test code = 74127) [id number] 00:00:00 Test Item Value Reference Range Interpretation Comments RPR RESULT (test code = NON-REACTIVE 3501) RPR TITER (test code = 3500) NOT INDIC. TITER [id number] 00:00:00 Test Item Value Reference Range Interpretation Comments RPR RESULT (test code = NON-REACTIVE 3501) RPR TITER (test code = 3500) NOT INDIC. TITER [id number] 00:00:00 Test Item Value Reference Range Interpretation Comments RPR RESULT (test code = NON-REACTIVE 3501) RPR TITER (test code = 3500) NOT INDIC. TITER HIV AB/AG COMBO RFLX [id number] 00:00:00 Test Item Value Reference Range Interpretation Comments HIV 1/2 4TH GEN, RFLX CONF (test NON-REACTIVE code = 3514) HIV AB/AG COMBO RFLX [id number] 00:00:00 Test Item Value Reference Range Interpretation Comments HIV 1/2 4TH GEN, RFLX CONF (test NON-REACTIVE code = 3514) ACUTE HEPATITIS [id number] 00:00:00 Test Item Value Reference Range Interpretation Comments HEPATITIS A IgM (test code = NON-REACTIVE 79666) HEPATITIS B CORE IgM (test code NON-REACTIVE = 4644) HEPATITIS B SURF AG (test code = NON-REACTIVE 2739) HEPATITIS C ANTIBODY (test code NON-REACTIVE = 4675) HCV INDEX (test code = 03848) 0.13 INTERPRETATION HEPATITIS A: (NOTE) (test code = 2552) INTERPRETATION HEPATITIS B: (NOTE) (test code = 93696) INTERPRETATION HEPATITIS C: (NOTE) (test code = 42721) ACUTE HEPATITIS [id number] 00:00:00 Test Item Value Reference Range Interpretation Comments HEPATITIS A IgM (test code = NON-REACTIVE 67664) HEPATITIS B CORE IgM (test code NON-REACTIVE = 4644) HEPATITIS B SURF AG (test code = NON-REACTIVE 2739) HEPATITIS C ANTIBODY (test code NON-REACTIVE = 4675) HCV INDEX (test code = 83573) 0.13 INTERPRETATION HEPATITIS A: (NOTE) (test code = 2552) INTERPRETATION HEPATITIS B: (NOTE) (test code = 70192) INTERPRETATION HEPATITIS C: (NOTE) (test code = 49315) GC AND CHLAMYDIA, AMPLIFIED, [id number] 00:00:00 Test Item Value Reference Range Interpretation Comments GONORRHEA, TMA (test code = 29594) NEGATIVE CHLAMYDIA, TMA (test code = 98283) NEGATIVE GC AND CHLAMYDIA, AMPLIFIED, [id number] 00:00:00 Test Item Value Reference Range Interpretation Comments GONORRHEA, TMA (test code = 62377) NEGATIVE CHLAMYDIA, TMA (test code = 18324) NEGATIVE [id number] 00:00:00 Test Item Value Reference Range Interpretation Comments RPR RESULT (test code = NON-REACTIVE 3501) RPR TITER (test code = 3500) NOT INDIC. TITER [id number] 00:00:00 Test Item Value Reference Range Interpretation Comments RPR RESULT (test code = NON-REACTIVE 3501) RPR TITER (test code = 3500) NOT INDIC. TITER [id number] 00:00:00 Test Item Value Reference Range Interpretation Comments RPR RESULT (test code = NON-REACTIVE 3501) RPR TITER (test code = 3500) NOT INDIC. TITER HIV AB/AG COMBO RFLX [id number] 00:00:00 Test Item Value Reference Range Interpretation Comments HIV 1/2 4TH GEN, RFLX CONF (test NON-REACTIVE code = 3514) HIV AB/AG COMBO RFLX [id number] 00:00:00 Test Item Value Reference Range Interpretation Comments HIV 1/2 4TH GEN, RFLX CONF (test NON-REACTIVE code = 3514) HIV AB/AG COMBO RFLX [id number] 00:00:00 Test Item Value Reference Range Interpretation Comments HIV 1/2 4TH GEN, RFLX CONF (test NON-REACTIVE code = 3514) ACUTE HEPATITIS [id number] 00:00:00 Test Item Value Reference Range Interpretation Comments HEPATITIS A IgM (test code = NON-REACTIVE 75445) HEPATITIS B CORE IgM (test code NON-REACTIVE = 4644) HEPATITIS B SURF AG (test code = NON-REACTIVE 2739) HEPATITIS C ANTIBODY (test code NON-REACTIVE = 4675) HCV INDEX (test code = 81564) 0.13 INTERPRETATION HEPATITIS A: (NOTE) (test code = 2552) INTERPRETATION HEPATITIS B: (NOTE) (test code = 02275) INTERPRETATION HEPATITIS C: (NOTE) (test code = 94421) ACUTE HEPATITIS [id number] 00:00:00 Test Item Value Reference Range Interpretation Comments HEPATITIS A IgM (test code = NON-REACTIVE 79807) HEPATITIS B CORE IgM (test code NON-REACTIVE = 4644) HEPATITIS B SURF AG (test code = NON-REACTIVE 2739) HEPATITIS C ANTIBODY (test code NON-REACTIVE = 4675) HCV INDEX (test code = 52504) 0.13 INTERPRETATION HEPATITIS A: (NOTE) (test code = 2552) INTERPRETATION HEPATITIS B: (NOTE) (test code = 09416) INTERPRETATION HEPATITIS C: (NOTE) (test code = 66037) HIV AB/AG COMBO RFLX [id number] 00:00:00 Test Item Value Reference Range Interpretation Comments HIV 1/2 4TH GEN, RFLX CONF (test NON-REACTIVE code = 3514) GC AND CHLAMYDIA, AMPLIFIED, [id number] 00:00:00 Test Item Value Reference Range Interpretation Comments GONORRHEA, TMA (test code = 83133) NEGATIVE CHLAMYDIA, TMA (test code = 16127) NEGATIVE GC AND CHLAMYDIA, AMPLIFIED, [id number] 00:00:00 Test Item Value Reference Range Interpretation Comments GONORRHEA, TMA (test code = 34620) NEGATIVE CHLAMYDIA, TMA (test code = 73339) NEGATIVE [id number] 00:00:00 Test Item Value Reference Range Interpretation Comments RPR RESULT (test code = NON-REACTIVE 3501) RPR TITER (test code = 3500) NOT INDIC. TITER [id number] 00:00:00 Test Item Value Reference Range Interpretation Comments RPR RESULT (test code = NON-REACTIVE 3501) RPR TITER (test code = 3500) NOT INDIC. TITER [id number] 00:00:00 Test Item Value Reference Range Interpretation Comments RPR RESULT (test code = NON-REACTIVE 3501) RPR TITER (test code = 3500) NOT INDIC. TITER ACUTE HEPATITIS [id number] 00:00:00 Test Item Value Reference Range Interpretation Comments HEPATITIS A IgM (test code = NON-REACTIVE 98156) HEPATITIS B CORE IgM (test code NON-REACTIVE = 4644) HEPATITIS B SURF AG (test code = NON-REACTIVE 2739) HEPATITIS C ANTIBODY (test code NON-REACTIVE = 4675) HCV INDEX (test code = 98438) 0.13 INTERPRETATION HEPATITIS A: (NOTE) (test code = 2552) INTERPRETATION HEPATITIS B: (NOTE) (test code = 86390) INTERPRETATION HEPATITIS C: (NOTE) (test code = 88535) ACUTE HEPATITIS [id number] 00:00:00 Test Item Value Reference Range Interpretation Comments HEPATITIS A IgM (test code = NON-REACTIVE 00785) HEPATITIS B CORE IgM (test code NON-REACTIVE = 4644) HEPATITIS B SURF AG (test code = NON-REACTIVE 2739) HEPATITIS C ANTIBODY (test code NON-REACTIVE = 4675) HCV INDEX (test code = 72327) 0.13 INTERPRETATION HEPATITIS A: (NOTE) (test code = 2552) INTERPRETATION HEPATITIS B: (NOTE) (test code = 88375) INTERPRETATION HEPATITIS C: (NOTE) (test code = 27894) GC AND CHLAMYDIA, AMPLIFIED, [id number] 00:00:00 Test Item Value Reference Range Interpretation Comments GONORRHEA, TMA (test code = 03940) NEGATIVE CHLAMYDIA, TMA (test code = 92341) NEGATIVE GC AND CHLAMYDIA, AMPLIFIED, [id number] 00:00:00 Test Item Value Reference Range Interpretation Comments GONORRHEA, TMA (test code = 56644) NEGATIVE CHLAMYDIA, TMA (test code = 88882) NEGATIVE [id number] 00:00:00 Test Item Value Reference Range Interpretation Comments RPR RESULT (test code = NON-REACTIVE 3501) RPR TITER (test code = 3500) NOT INDIC. TITER [id number] 00:00:00 Test Item Value Reference Range Interpretation Comments RPR RESULT (test code = NON-REACTIVE 3501) RPR TITER (test code = 3500) NOT INDIC. TITER [id number] 00:00:00 Test Item Value Reference Range Interpretation Comments RPR RESULT (test code = NON-REACTIVE 3501) RPR TITER (test code = 3500) NOT INDIC. TITER [id number] 00:00:00 Test Item Value Reference Range Interpretation Comments RPR RESULT (test code = NON-REACTIVE 3501) RPR TITER (test code = 3500) NOT INDIC. TITER [id number] 00:00:00 Test Item Value Reference Range Interpretation Comments RPR RESULT (test code = NON-REACTIVE 3501) RPR TITER (test code = 3500) NOT INDIC. TITER [id number] 00:00:00 Test Item Value Reference Range Interpretation Comments RPR RESULT (test code = NON-REACTIVE 3501) RPR TITER (test code = 3500) NOT INDIC. TITER HIV AB/AG COMBO RFLX [id number] 00:00:00 Test Item Value Reference Range Interpretation Comments HIV 1/2 4TH GEN, RFLX CONF (test NON-REACTIVE code = 3514) HIV AB/AG COMBO RFLX [id number] 00:00:00 Test Item Value Reference Range Interpretation Comments HIV 1/2 4TH GEN, RFLX CONF (test NON-REACTIVE code = 3514) [id number] 00:00:00 Test Item Value Reference Range Interpretation Comments RPR RESULT (test code = NON-REACTIVE 3501) RPR TITER (test code = 3500) NOT INDIC. TITER [id number] 00:00:00 Test Item Value Reference Range Interpretation Comments RPR RESULT (test code = NON-REACTIVE 3501) RPR TITER (test code = 3500) NOT INDIC. TITER [id number] 00:00:00 Test Item Value Reference Range Interpretation Comments RPR RESULT (test code = NON-REACTIVE 3501) RPR TITER (test code = 3500) NOT INDIC. TITER [id number] 00:00:00 Test Item Value Reference Range Interpretation Comments RPR RESULT (test code = NON-REACTIVE 3501) RPR TITER (test code = 3500) NOT INDIC. TITER HIV AB/AG COMBO RFLX [id number] 00:00:00 Test Item Value Reference Range Interpretation Comments HIV 1/2 4TH GEN, RFLX CONF (test NON-REACTIVE code = 3514) HIV AB/AG COMBO RFLX [id number] 00:00:00 Test Item Value Reference Range Interpretation Comments HIV 1/2 4TH GEN, RFLX CONF (test NON-REACTIVE code = 3514) [id number] 00:00:00 Test Item Value Reference Range Interpretation Comments RPR RESULT (test code = NON-REACTIVE 3501) RPR TITER (test code = 3500) NOT INDIC. TITER [id number] 00:00:00 Test Item Value Reference Range Interpretation Comments RPR RESULT (test code = NON-REACTIVE 3501) RPR TITER (test code = 3500) NOT INDIC. TITER HIV AB/AG COMBO RFLX [id number] 00:00:00 Test Item Value Reference Range Interpretation Comments HIV 1/2 4TH GEN, RFLX CONF (test NON-REACTIVE code = 3514) HIV AB/AG COMBO RFLX [id number] 00:00:00 Test Item Value Reference Range Interpretation Comments HIV 1/2 4TH GEN, RFLX CONF (test NON-REACTIVE code = 3514) GC AND CHLAMYDIA, AMPLIFIED, [id number] 00:00:00 Test Item Value Reference Range Interpretation Comments GONORRHEA, TMA (test code = 76133) NEGATIVE CHLAMYDIA, TMA (test code = 17522) NEGATIVE GC AND CHLAMYDIA, AMPLIFIED, [id number] 00:00:00 Test Item Value Reference Range Interpretation Comments GONORRHEA, TMA (test code = 77632) NEGATIVE CHLAMYDIA, TMA (test code = 58302) NEGATIVE GC AND CHLAMYDIA, AMPLIFIED, [id number] 00:00:00 Test Item Value Reference Range Interpretation Comments GONORRHEA, TMA (test code = 43699) NEGATIVE CHLAMYDIA, TMA (test code = 96489) NEGATIVE GC AND CHLAMYDIA, AMPLIFIED, [id number] 00:00:00 Test Item Value Reference Range Interpretation Comments GONORRHEA, TMA (test code = 12151) NEGATIVE CHLAMYDIA, TMA (test code = 32239) NEGATIVE GC AND CHLAMYDIA, AMPLIFIED, [id number] 00:00:00 Test Item Value Reference Range Interpretation Comments GONORRHEA, TMA (test code = 75518) NEGATIVE CHLAMYDIA, TMA (test code = 28270) NEGATIVE GC AND CHLAMYDIA, AMPLIFIED, [id number] 00:00:00 Test Item Value Reference Range Interpretation Comments GONORRHEA, TMA (test code = 41609) NEGATIVE CHLAMYDIA, TMA (test code = 26324) NEGATIVE COMPREHENSIVE METABOLIC [id number] 00:00:00 Test Item Value Reference Range Interpretation Comments GLUCOSE (test code = 2217) 127 MG/DL BUN (test code = 2208) 5 MG/DL CREATININE (test code = 2214) 0.58 MG/DL eGFR AMER. (test code 148 ML/MIN/1.73 = 14849) eGFR NON- AMER. (test 128 ML/MIN/1.73 code = 03374) CALC BUN/CREAT (test code = 9 RATIO [...] code = 2219) 18 U/L COMPREHENSIVE METABOLIC [id number] 00:00:00 Test Item Value Reference Range Interpretation Comments GLUCOSE (test code = 2217) 127 MG/DL BUN (test code = 2208) 5 MG/DL CREATININE (test code = 2214) 0.58 MG/DL eGFR AMER. (test code 148 ML/MIN/1.73 = 03957) eGFR NON- AMER. (test 128 ML/MIN/1.73 code = 74526) CALC BUN/CREAT (test code = 9 RATIO [...] (test code = 2219) 18 U/L LIPID [id number] 00:00:00 Test Item Value Reference Range Interpretation Comments CHOLESTEROL (test code = 2210) 186 MG/DL TRIGLYCERIDES (test code = 2232) 106 MG/DL HDL CHOLESTEROL (test code = 2220) 54 MG/DL CALC LDL CHOL (test code = 2237) 111 MG/DL RISK RATIO LDL/HDL (test code = 2.05 RATIO 2238) LIPID [id number] 00:00:00 Test Item Value Reference Range Interpretation Comments CHOLESTEROL (test code = 2210) 186 MG/DL TRIGLYCERIDES (test code = 2232) 106 MG/DL HDL CHOLESTEROL (test code = 2220) 54 MG/DL CALC LDL CHOL (test code = 2237) 111 MG/DL RISK RATIO LDL/HDL (test code = 2.05 RATIO 2238) COMPREHENSIVE METABOLIC [id number] 00:00:00 Test Item Value Reference Range Interpretation Comments GLUCOSE (test code = 2217) 127 MG/DL BUN (test code = 2208) 5 MG/DL CREATININE (test code = 2214) 0.58 MG/DL eGFR AMER. (test code 148 ML/MIN/1.73 = 67702) eGFR NON- AMER. (test 128 ML/MIN/1.73 code = 03608) CALC BUN/CREAT (test code = 9 RATIO [...] code = 2219) 18 U/L COMPREHENSIVE METABOLIC [id number] 00:00:00 Test Item Value Reference Range Interpretation Comments GLUCOSE (test code = 2217) 127 MG/DL BUN (test code = 2208) 5 MG/DL CREATININE (test code = 2214) 0.58 MG/DL eGFR AMER. (test code 148 ML/MIN/1.73 = 33435) eGFR NON- AMER. (test 128 ML/MIN/1.73 code = 72536) CALC BUN/CREAT (test code = 9 RATIO [...] code = 2219) 18 U/L COMPREHENSIVE METABOLIC [id number] 00:00:00 Test Item Value Reference Range Interpretation Comments GLUCOSE (test code = 2217) 127 MG/DL BUN (test code = 2208) 5 MG/DL CREATININE (test code = 2214) 0.58 MG/DL eGFR AMER. (test code 148 ML/MIN/1.73 = 22208) eGFR NON- AMER. (test 128 ML/MIN/1.73 code = 42423) CALC BUN/CREAT (test code = 9 RATIO [...] (test code = 2219) 18 U/L LIPID [id number] 00:00:00 Test Item Value Reference Range Interpretation Comments CHOLESTEROL (test code = 2210) 186 MG/DL TRIGLYCERIDES (test code = 2232) 106 MG/DL HDL CHOLESTEROL (test code = 2220) 54 MG/DL CALC LDL CHOL (test code = 2237) 111 MG/DL RISK RATIO LDL/HDL (test code = 2.05 RATIO 2238) LIPID [id number] 00:00:00 Test Item Value Reference Range Interpretation Comments CHOLESTEROL (test code = 2210) 186 MG/DL TRIGLYCERIDES (test code = 2232) 106 MG/DL HDL CHOLESTEROL (test code = 2220) 54 MG/DL CALC LDL CHOL (test code = 2237) 111 MG/DL RISK RATIO LDL/HDL (test code = 2.05 RATIO 2238) COMPREHENSIVE METABOLIC [id number] 00:00:00 Test Item Value Reference Range Interpretation Comments GLUCOSE (test code = 2217) 127 MG/DL BUN (test code = 2208) 5 MG/DL CREATININE (test code = 2214) 0.58 MG/DL eGFR AMER. (test code 148 ML/MIN/1.73 = 41372) eGFR NON- AMER. (test 128 ML/MIN/1.73 code = 52714) CALC BUN/CREAT (test code = 9 RATIO [...] (test code = 2219) 18 U/L LIPID [id number] 00:00:00 Test Item Value Reference Range Interpretation Comments CHOLESTEROL (test code = 2210) 186 MG/DL TRIGLYCERIDES (test code = 2232) 106 MG/DL HDL CHOLESTEROL (test code = 2220) 54 MG/DL CALC LDL CHOL (test code = 2237) 111 MG/DL RISK RATIO LDL/HDL (test code = 2.05 RATIO 2238) LIPID [id number] 00:00:00 Test Item Value Reference Range Interpretation Comments CHOLESTEROL (test code = 2210) 186 MG/DL TRIGLYCERIDES (test code = 2232) 106 MG/DL HDL CHOLESTEROL (test code = 2220) 54 MG/DL CALC LDL CHOL (test code = 2237) 111 MG/DL RISK RATIO LDL/HDL (test code = 2.05 RATIO 2238) GC AND CHLAMYDIA, AMPLIFIED, [id number] 00:00:00 Test Item Value Reference Range Interpretation Comments GONORRHEA, TMA (test code = 98995) NEGATIVE CHLAMYDIA, TMA (test code = 74986) NEGATIVE GC AND CHLAMYDIA, AMPLIFIED, [id number] 00:00:00 Test Item Value Reference Range Interpretation Comments GONORRHEA, TMA (test code = 81924) NEGATIVE CHLAMYDIA, TMA (test code = 25173) NEGATIVE GC AND CHLAMYDIA, AMPLIFIED, [id number] 00:00:00 Test Item Value Reference Range Interpretation Comments GONORRHEA, TMA (test code = 24384) NEGATIVE CHLAMYDIA, TMA (test code = 43377) NEGATIVE GC AND CHLAMYDIA, AMPLIFIED, [id number] 00:00:00 Test Item Value Reference Range Interpretation Comments GONORRHEA, TMA (test code = 38592) NEGATIVE CHLAMYDIA, TMA (test code = 27331) NEGATIVE GC AND CHLAMYDIA, AMPLIFIED, [id number] 00:00:00 Test Item Value Reference Range Interpretation Comments GONORRHEA, TMA (test code = 49957) NEGATIVE CHLAMYDIA, TMA (test code = 79833) NEGATIVE GC AND CHLAMYDIA, AMPLIFIED, [id number] 00:00:00 Test Item Value Reference Range Interpretation Comments GONORRHEA, TMA (test code = 74602) NEGATIVE CHLAMYDIA, TMA (test code = 24511) NEGATIVE VAGINAL PATHOGENS DNA [id number] 00:00:00 Test Item Value Reference Range Interpretation Comments YOKO SPECIES (test code = 42002) POSITIVE G. VAGINALIS (test code = 85164) NEGATIVE T. VAGINALIS (test code = 04683) NEGATIVE VAGINAL PATHOGENS DNA [id number] 00:00:00 Test Item Value Reference Range Interpretation Comments YOKO SPECIES (test code = 39468) POSITIVE G. VAGINALIS (test code = 40217) NEGATIVE T. VAGINALIS (test code = 93623) NEGATIVE VAGINAL PATHOGENS DNA [id number] 00:00:00 Test Item Value Reference Range Interpretation Comments YOKO SPECIES (test code = 58934) POSITIVE G. VAGINALIS (test code = 46928) NEGATIVE T. VAGINALIS (test code = 46525) NEGATIVE VAGINAL PATHOGENS DNA [id number] 00:00:00 Test Item Value Reference Range Interpretation Comments YOKO SPECIES (test code = 63056) POSITIVE G. VAGINALIS (test code = 61217) NEGATIVE T. VAGINALIS (test code = 39524) NEGATIVE VAGINAL PATHOGENS DNA [id number] 00:00:00 Test Item Value Reference Range Interpretation Comments YOKO SPECIES (test code = ) POSITIVE G. VAGINALIS (test code = 99658) NEGATIVE T. VAGINALIS (test code = 04405) NEGATIVE VAGINAL PATHOGENS DNA [id number] 00:00:00 Test Item Value Reference Range Interpretation Comments YOKO SPECIES (test code = ) POSITIVE G. VAGINALIS (test code = 18158) NEGATIVE T. VAGINALIS (test code = 61524) NEGATIVE GC AND CHLAMYDIA, AMPLIFIED, [id number] 00:00:00 Test Item Value Reference Range Interpretation Comments GONORRHEA, TMA (test code = 14419) NEGATIVE CHLAMYDIA, TMA (test code = 69613) NEGATIVE GC AND CHLAMYDIA, AMPLIFIED, [id number] 00:00:00 Test Item Value Reference Range Interpretation Comments GONORRHEA, TMA (test code = 33578) NEGATIVE CHLAMYDIA, TMA (test code = 99952) NEGATIVE GC AND CHLAMYDIA, AMPLIFIED, [id number] 00:00:00 Test Item Value Reference Range Interpretation Comments GONORRHEA, TMA (test code = 45239) NEGATIVE CHLAMYDIA, TMA (test code = 35457) NEGATIVE GC AND CHLAMYDIA, AMPLIFIED, [id number] 00:00:00 Test Item Value Reference Range Interpretation Comments GONORRHEA, TMA (test code = 21742) NEGATIVE CHLAMYDIA, TMA (test code = 30208) NEGATIVE GC AND CHLAMYDIA, AMPLIFIED, [id number] 00:00:00 Test Item Value Reference Range Interpretation Comments GONORRHEA, TMA (test code = 29683) NEGATIVE CHLAMYDIA, TMA (test code = 14995) NEGATIVE GC AND CHLAMYDIA, AMPLIFIED, [id number] 00:00:00 Test Item Value Reference Range Interpretation Comments GONORRHEA, TMA (test code = 70479) NEGATIVE CHLAMYDIA, TMA (test code = 36809) NEGATIVE CULTURE, [id number] 00:00:00 Test Item Value Reference Range Interpretation Comments CULTURE, URINE (test SPECIMEN NUMBER: code = 40296) [id number] CULTURE, [id number] 00:00:00 Test Item Value Reference Range Interpretation Comments CULTURE, URINE (test SPECIMEN NUMBER: code = 10809) [id number] CULTURE, [id number] 00:00:00 Test Item Value Reference Range Interpretation Comments CULTURE, URINE (test SPECIMEN NUMBER: code = 56061) [id number] CULTURE, [id number] 00:00:00 Test Item Value Reference Range Interpretation Comments CULTURE, URINE (test SPECIMEN NUMBER: code = 21315) [id number] CULTURE, [id number] 00:00:00 Test Item Value Reference Range Interpretation Comments CULTURE, URINE (test SPECIMEN NUMBER: code = 98017) [id number] CULTURE, [id number] 00:00:00 Test Item Value Reference Range Interpretation Comments CULTURE, URINE (test SPECIMEN NUMBER: code = 33131) [id number] HEMOGLOBIN [id number] 00:00:00 Test Item Value Reference Range Interpretation Comments HEMOGLOBIN A1c (test code = 55554) 5.5 % HEMOGLOBIN [id number] 00:00:00 Test Item Value Reference Range Interpretation Comments HEMOGLOBIN A1c (test code = 33598) 5.5 % HEMOGLOBIN [id number] 00:00:00 Test Item Value Reference Range Interpretation Comments HEMOGLOBIN A1c (test code = 55734) 5.5 % CBC W/AUTO [id number] 00:00:00 Test Item Value Reference Range Interpretation [...] code = 1015) 310 K/UL CBC W/AUTO [id number] 00:00:00 Test Item Value Reference Range Interpretation [...] code = 1015) 310 K/UL CBC W/AUTO [id number] 00:00:00 Test Item Value Reference Range Interpretation [...] code = 1015) 310 K/UL COMPREHENSIVE METABOLIC [id number] 00:00:00 Test Item Value Reference Range Interpretation Comments GLUCOSE (test code = 2217) 73 MG/DL BUN (test code = 2208) 10 MG/DL CREATININE (test code = 2214) 0.51 MG/DL eGFR AMER. (test code 158 ML/MIN/1.73 = 88178) eGFR NON- AMER. (test 136 ML/MIN/1.73 code = 70509) CALCULATED BUN/CREAT (test 20 RATIO code = [...] code = 2219) 23 U/L COMPREHENSIVE METABOLIC [id number] 00:00:00 Test Item Value Reference Range Interpretation Comments GLUCOSE (test code = 2217) 73 MG/DL BUN (test code = 2208) 10 MG/DL CREATININE (test code = 2214) 0.51 MG/DL eGFR AMER. (test code 158 ML/MIN/1.73 = 28041) eGFR NON- AMER. (test 136 ML/MIN/1.73 code = 11210) CALCULATED BUN/CREAT (test 20 RATIO code = [...] (test code = 2219) 23 U/L LIPID [id number] 00:00:00 Test Item Value Reference Range Interpretation Comments CHOLESTEROL (test code = 2210) 167 MG/DL TRIGLYCERIDES (test code = 2232) 109 MG/DL HDL CHOLESTEROL (test code = 2220) 58 MG/DL CALCULATED LDL CHOL (test code = 87 MG/DL 2236) RISK RATIO LDL/HDL (test code = 1.50 RATIO 223) LIPID [id number] 00:00:00 Test Item Value Reference Range Interpretation [...] (test code = 2821) 1.5 UIU/ML HEMOGLOBIN [id number] 00:00:00 Test Item Value Reference Range Interpretation Comments HEMOGLOBIN A1c (test code = 44089) 5.5 % HEMOGLOBIN [id number] 00:00:00 Test Item Value Reference Range Interpretation Comments HEMOGLOBIN A1c (test code = 35758) 5.5 % HEMOGLOBIN [id number] 00:00:00 Test Item Value Reference Range Interpretation Comments HEMOGLOBIN A1c (test code = 30422) 5.5 % HEMOGLOBIN [id number] 00:00:00 Test Item Value Reference Range Interpretation Comments HEMOGLOBIN A1c (test code = 51720) 5.5 % HEMOGLOBIN [id number] 00:00:00 Test Item Value Reference Range Interpretation Comments HEMOGLOBIN A1c (test code = 31587) 5.5 % CBC W/AUTO [id number] 00:00:00 Test Item Value Reference Range Interpretation [...] code = 1015) 310 K/UL CBC W/AUTO [id number] 00:00:00 Test Item Value Reference Range Interpretation [...] code = 1015) 310 K/UL CBC W/AUTO [id number] 00:00:00 Test Item Value Reference Range Interpretation [...] code = 1015) 310 K/UL COMPREHENSIVE METABOLIC [id number] 00:00:00 Test Item Value Reference Range Interpretation Comments GLUCOSE (test code = 2217) 73 MG/DL BUN (test code = 2208) 10 MG/DL CREATININE (test code = 2214) 0.51 MG/DL eGFR AMER. (test code 158 ML/MIN/1.73 = 21878) eGFR NON- AMER. (test 136 ML/MIN/1.73 code = 92851) CALCULATED BUN/CREAT (test 20 RATIO code = [...] code = 2219) 23 U/L COMPREHENSIVE METABOLIC [id number] 00:00:00 Test Item Value Reference Range Interpretation Comments GLUCOSE (test code = 2217) 73 MG/DL BUN (test code = 2208) 10 MG/DL CREATININE (test code = 2214) 0.51 MG/DL eGFR AMER. (test code 158 ML/MIN/1.73 = 11765) eGFR NON- AMER. (test 136 ML/MIN/1.73 code = 48947) CALCULATED BUN/CREAT (test 20 RATIO code = [...] (test code = 2219) 23 U/L LIPID [id number] 00:00:00 Test Item Value Reference Range Interpretation Comments CHOLESTEROL (test code = 2210) 167 MG/DL TRIGLYCERIDES (test code = 2232) 109 MG/DL HDL CHOLESTEROL (test code = 2220) 58 MG/DL CALCULATED LDL CHOL (test code = 87 MG/DL 2237) RISK RATIO LDL/HDL (test code = 1.50 RATIO 2238) LIPID [id number] 00:00:00 Test Item Value Reference Range Interpretation [...] (test code = 2821) 1.5 UIU/ML HEMOGLOBIN [id number] 00:00:00 Test Item Value Reference Range Interpretation Comments HEMOGLOBIN A1c (test code = 54656) 5.5 % CBC W/AUTO [id number] 00:00:00 Test Item Value Reference Range Interpretation [...] code = 1015) 310 K/UL CBC W/AUTO [id number] 00:00:00 Test Item Value Reference Range Interpretation [...] code = 1015) 310 K/UL CBC W/AUTO [id number] 00:00:00 Test Item Value Reference Range Interpretation [...] code = 1015) 310 K/UL COMPREHENSIVE METABOLIC [id number] 00:00:00 Test Item Value Reference Range Interpretation Comments GLUCOSE (test code = 2217) 73 MG/DL BUN (test code = 2208) 10 MG/DL CREATININE (test code = 2214) 0.51 MG/DL eGFR AMER. (test code 158 ML/MIN/1.73 = 60647) eGFR NON- AMER. (test 136 ML/MIN/1.73 code = 33432) CALCULATED BUN/CREAT (test 20 RATIO code = [...] code = 2219) 23 U/L COMPREHENSIVE METABOLIC [id number] 00:00:00 Test Item Value Reference Range Interpretation Comments GLUCOSE (test code = 2217) 73 MG/DL BUN (test code = 2208) 10 MG/DL CREATININE (test code = 2214) 0.51 MG/DL eGFR AMER. (test code 158 ML/MIN/1.73 = 23513) eGFR NON- AMER. (test 136 ML/MIN/1.73 code = 01948) CALCULATED BUN/CREAT (test 20 RATIO code = [...] (test code = 2219) 23 U/L LIPID [id number] 00:00:00 Test Item Value Reference Range Interpretation Comments CHOLESTEROL (test code = 2210) 167 MG/DL TRIGLYCERIDES (test code = 2232) 109 MG/DL HDL CHOLESTEROL (test code = 2220) 58 MG/DL CALCULATED LDL CHOL (test code = 87 MG/DL 2237) RISK RATIO LDL/HDL (test code = 1.50 RATIO 2238) LIPID [id number] 00:00:00 Test Item Value Reference Range Interpretation [...] d ifferent from the original. [facility] Images from the original note were not included. [facility] Carlie Briones MD, FIPP Brian Spencer PA-C, [facility] [place] ASSESSMENT 1. Chronic pain of both knees [...] injection is deemed warranted Pt lives near [facility] and witnessed per Brian pSencer PA-C Patient was instructed to ge t [...] . COMPARISON: Plain radiograph from 03/16/2020, steff e MR 10/22/2017. TECHNIQUE AND FINDINGS: 1.5 [...] antidepressants, sedatives, and/or tranquilizer s, the drug [employer], recommends not operating ANY machinery or ANY [...] sudden . Notes Date/Time Note Provider Source 2023-05-06 10:32:55-00:00 Formatting of this note is d ifferent from the original. [facility] Chief Complaint Patient presents with Follow-up Follow up from [facility] 1 for a fall. She has since been having white spots in eyes. Rima Smith MA II 2023-04-28 08:52:15-00:00 Formatting of this note is d ifferent from the original. [facility] Michael is a 28 year old adult Chief Complaint Patient presents with Follow-Up Visit 6 month Marlene Hobbs CMA II 2023-04-24 08:51:32-00:00 Formatting of this note is d ifferent from the original. [facility] Chief Complaint Patient presents with Follow-up ERNIE - 12/22/2022 - hx of ast hma and MADHAV. Pt. Unable to get CPAP due to co-pay of $300, same with nebulizer. Connie Puente LVN Electronically signed by Connie Puente LVN a t 04/24/2023 9:01 AM CDT 2023-03-11 10:25:13-00:00 Formatting of this note is d ifferent from the original[facility] 27 [facility] Chief Complaint Patient presents with Follow-up 27 year old patient c/o amy ateral knee and back pain here for follow up. Pain 04/09. Bri Ackerman MA II
[2023-05-19 10:54] LABS: Potassium 3.8 mEq/L (3.5-5.1)
--- NOTE | 2023-05-19 13:33 | ER ---
Nurse's Notes [facility] Name: Taylor Rodriguez Age: 28 yrs Sex: Female : 1995 Arrival Date: 05/19/2023 Time: 10:19 Bed 4 Private MD: Diagnosis: Epileptic seizures related to external causes, not intractable, without status epilepticus Presentation: 05/19 10:23 Chief complaint: EMS states: toned out to [facility] for unwitnessed seizure ld1 activity. Upon arrival to ER pt is post ictal. Coronavirus screen: At this time, the client does not indicate any symptoms associated with coronavirus-19. Ebola Screen: No symptoms or risks identified at this time. Initial Sepsis Screen: Does the patient meet any 2 criteria? No. Patient's initial sepsis screen is negative. Does the patient have a suspected source of infection? No. Patient's initial sepsis screen is negative. Risk Assessment: Do you want to hurt yourself or someone else? Patient reports no desire to harm self or others. Onset of symptoms was May 19, 2023. 10:23 Method Of Arrival: EMS: [facility] ld1 10:23 Acuity: MILAN 3 ld1 Triage Assessment: 10:25 General: Appears in no apparent distress. comfortable, Behavior is calm, cooperative, ld1 appropriate for age. Pain: Unable to use pain scale. Patient is disoriented. EENT: No signs and/or symptoms were reported regarding the EENT system. Neuro: Level of Consciousness is confused, Oriented to none Seizure activity reported prior to arrival. Patient is post-ictal at this time. Cardiovascular: Capillary refill < 3 seconds Patient's skin is warm and dry. Rhythm is sinus rhythm. Respiratory: Airway is patent Respiratory effort is even, unlabored. GI: Abdomen is round obese. : No signs and/or symptoms were reported regarding the genitourinary system. Derm: No signs and/or symptoms reported regarding the dermatologic system. Musculoskeletal: No signs and/or symptoms reported regarding the musculoskeletal system. Historical: - Allergies: 10:25 Naproxen; ld1 - PMHx: 10:25 Anxiety; Bipolar disorder; High Blood Pressure; Fibromyalgia; Schizophrenia; ld1 Depression; Sleep Apnea; Chronic pain; - Immunization history:: Adult Immunizations up to date. - Social history:: Smoking status: Patient denies any tobacco usage or history of. Patient/guardian denies using alcohol. - Family history:: not pertinent. - Hospitalizations: : No recent hospitalization is reported. Screenin:27 [facility] ED Fall Risk Assessment (Adult) History of falling in the last 3 months, ld1 including since admission No falls in past 3 months (0 pts). Abuse screen: Denies threats or abuse. Denies injuries from another. Nutritional screening: No deficits noted. Tuberculosis screening: No symptoms or risk factors identified. Assessment: 10:27 Reassessment: See triage assessment. ld1 11:27 Reassessment: Patient appears in no apparent distress at this time. No changes from kc6 previously documented assessment. Patient and/or family updated on plan of care and expected duration. Pain level reassessed. Patient is alert, oriented x 3, equal unlabored respirations, skin warm/dry/pink. 12:45 Reassessment: Patient appears in no apparent distress at this time. No changes from cp4 previously documented assessment. Patient and/or family updated on plan of care and expected duration. Pain level reassessed. Vital Signs: 10:23 BP 135 / 86; Pulse 71; Resp 14; Temp 98.2(O); Pulse Ox 99% on R/A; Weight 141.97 kg; ld1 Height 5 ft. 6 in. ; 12:11 BP 139 / 110; Pulse 66; Resp 18 S; Pulse Ox 97% on R/A; kc6 10:23 Body Mass Index 50.52 (141.97 kg, 167.64 cm) ld1 Arverne Coma Score: 10:25 Eye Response: to pain(2). Motor Response: withdraws from pain(4). Verbal Response: ld1 none(1). Total: 7. ED Course: 10:21 Patient arrived in ED. rn 10:22 Moses Bell MD is Attending Physician. rn 10:23 Kerry Tejeda, ROQUE is Primary Nurse. ld1 10:25 Triage completed. ld1 10:25 Arm band placed on right wrist. ld1 10:27 Patient has correct armband on for positive identification. Placed in gown. Bed in low ld1 position. Call light in reach. Side rails up X2. nurse monitoring on. Pulse ox on. NIBP on. Door closed. Noise minimized. Warm blanket given. 10:27 Seizure precautions initiated. ld1 10:27 No provider procedures requiring assistance completed. ld1 10:38 Basic Metabolic Panel Sent. cp4 10:38 CBC with Diff Sent. cp4 10:39 Inserted saline lock: 20 gauge in left antecubital area, using aseptic technique. Blood cp4 collected. 14:04 IV discontinued, intact, bleeding controlled, No redness/swelling at site. ld1 Administered Medications: No medications were administered Medication: 14:04 VIS not applicable for this client. ld1 Outcome: 13:32 Discharge ordered by . rn 14:04 Discharged to home via wheelchair, with family, ld1 14:04 Condition: stable 14:04 Discharge instructions given to patient, 14:04 Discharge instructions given to patient, family, Instructed on discharge instructions, follow up and referral plans. Demonstrated understanding of instructions, follow-up care, 14:04 Patient left the ED. ld1 Signatures: Moses Bell MD MD rn Sims, Lauren, RN RN ld1 Jewels Rios RN RN kc6 Madeleine Navarro cp4 Corrections: (The following items were deleted from the chart) 10:32 10:31 CBC+H.LAB.BRZ drawn and sent. ld1 EDMS
--- NOTE | 2023-05-19 13:33 | EDPHYS ---
Physician Documentation [facility] Name: Taylor Rodriguez Age: 28 yrs Sex: Female : 1995 Arrival Date: 05/19/2023 Time: 10: Bed 4 Private MD: ED Physician Moses Bell HPI: 05/19 10:43 This 28 yrs old Black Female presents to ER via EMS with complaints of Probable Seizure.rn 10:43 The patient presents after having a possible seizure episode, no tonic-clonic activity rn was appreciated. Associated injury: The patient did not suffer any apparent associated injury. The patient has experienced similar episodes in the past. Patient had just gotten into her doctor's office in waiting room when noted to be minimally responsive, no seizure activity noted. Patient with history of seizures and on seizure medication. EMS did not administer any medication. Patient was acting postictal since EMS arrival.. Historical: - Allergies: 10:25 Naproxen; ld1 - PMHx: 10:25 Anxiety; Bipolar disorder; High Blood Pressure; Fibromyalgia; Schizophrenia; ld1 Depression; Sleep Apnea; Chronic pain; - Immunization history:: Adult Immunizations up to date. - Social history:: Smoking status: Patient denies any tobacco usage or history of. Patient/guardian denies using alcohol. - Family history:: not pertinent. - Hospitalizations: : No recent hospitalization is reported. 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 No pulse deficits. Respiratory: No increased work of breathing, no retractions or nasal flaring. Abdomen/GI: Soft, non-tender Skin: Warm, dry MS/ Extremity: Pulses equal, no cyanosis. Neuro: Somnolent/postictal, localizes to painful stimuli, moans and groans. 15:43 ECG was reviewed by the Attending Physician. rn Vital Signs: 10:23 BP 135 / 86; Pulse 71; Resp 14; Temp 98.2(O); Pulse Ox 99% on R/A; Weight 141.97 kg; ld1 Height 5 ft. 6 in. ; 12:11 BP 139 / 110; Pulse 66; Resp 18 S; Pulse Ox 97% on R/A; kc6 10:23 Body Mass Index 50.52 (141.97 kg, 167.64 cm) ld1 Clarkson Coma Score: 10:25 Eye Response: to pain(2). Motor Response: withdraws from pain(4). Verbal Response: ld1 none(1). Total: 7. MDM: 10:22 Patient medically screened. rn 13:31 Differential diagnosis: seizure, Syncope. Data reviewed: vital signs, nurses notes, old rn medical records, lab test result(s), EKG, and as a result, I will discharge patient. Care significantly affected by the following chronic conditions: Seizures. Counseling: I had a detailed discussion with the patient and/or guardian regarding the historical points, exam findings, and any diagnostic results supporting the discharge/admit diagnosis, lab results, the need for outpatient follow up, to return to the emergency department if symptoms worsen or persist or if there are any questions or concerns that arise at home. Response to treatment: the patient's symptoms have resolved after treatment, the patient's condition has returned to base line, the patient is now symptom free, and as a result, I will discharge patient. Special discussion: I discussed with the patient/guardian in detail that at this point there is no indication for admission to the hospital. It is understood, however, that if the symptoms persist or worsen the patient needs to return immediately for re-evaluation. ED course: Patient back to baseline, most likely had seizure given postictal. And lack of acute findings. Will DC home with instructions to continue her current seizure medication. Return precautions given and understood. 05/19 10: Order name: CBC with Diff; Complete Time: 11:05/19 10:22 Order name: Basic Metabolic Panel; Complete Time: :05/19 10:42 Order name: Glucose, Ancillary Testing; Complete Time: 11: EDMS 05/19 10:22 Order name: EKG; Complete Time: 10:05/19 10:22 Order name: IV Start; Complete Time: :05/19 10:22 Order name: EKG - Nurse/Tech; Complete Time: 10:39 rn 05/19 10:22 Order name: Cardiac monitoring; Complete Time: :05/19 10:22 Order name: O2 Sat Monitoring; Complete Time: :05/19 10:22 Order name: Glucose Level; Complete Time: 10:31 rn EC:43 Rate is 67 beats/min. Rhythm is regular. QRS [place] is Normal. DC interval is normal. QRS rn interval is normal. QT interval is normal. No Q waves. T waves are Normal. No ST changes noted. Clinical impression: Normal ECG. Interpreted by me. Reviewed by me. Administered Medications: No medications were administered Disposition Summary: 05/19/23 13:32 Discharge Ordered Notes: Location: Home rn Problem: new rn Symptoms: have improved rn Condition: Stable rn Diagnosis - Epileptic seizures related to external causes, not intractable, without status rn epilepticus Followup: rn - With: Private Physician - When: As needed - Reason: Recheck today's complaints, Re-evaluation by your physician Discharge Instructions: - Discharge Summary Sheet rn - Seizure, Adult rn Forms: - Medication Reconciliation Form rn - Thank You Letter rn - Antibiotic keg varnisher - Prescription Opioid Use rn - Patient Portal Instructions rn - Leadership Thank You Letter rn Signatures: Dispatcher [employer] EDMS Moses Bell MD MD rn Sims, Lauren, RN RN ld1 Corrections: (The following items were deleted from the chart) 10:32 10:23 CBC+H.LAB.BRZ ordered. EDMS EDMS
[2023-05-19 15:54] VITALS: TEMP 98.2
[2023-05-19 15:55] VITALS: BP 139/110; O2SAT 97
--- NOTE | 2023-05-20 14:36 | EKG ---
Test Date: 2023-05-19 Test Time: 10:34:31 Ply Cutter: Jessica RUIZ MEASUREMENT RESULTS: Intervals: Rate: 67 KS: 190 QRSD: 78 QT: 384 QTc: 405 [place]: P: 52 KS: 190 QRS: 34 T: 1 INTERPRETIVE STATEMENTS: Normal sinus rhythm Normal ECG Compared to ECG 05/01/2023 10:31:30 No significant changes Electronically Signed On 05-20-23 14:32:23 CDT by Parmjit Yepez
== END 2023-05-19 14:04 | disposition home or self-care (01) ==
LOC: ER 10:19
DX: G40.509 Epileptic seizures related to external causes, not intractable, without status epilepticus (principal); Z88.5 Allergy status to narcotic agent
CPT/HCPCS: 36415; 80048; 82947; 85025; 93005

== ENCOUNTER 2023-06-27 12:21 | Emergency (ER) | payer OTHER ==
--- OUTSIDE RECORDS SUMMARY | 2023-06-27 12:36 | XMS REPORT | Continuity of Care Document ---
:1995 Author Organization [facility] t Address [address] [facility] [address] [place] [address] Care Team Providers Name Role Phone No, Pcp [facility] Primary Care Physician Unavailable DARLIN VICK Attending Clinician Unavailable DORA WINN Attending Clinician Unavailable SHIRLEY BADILLO Attending Clinician Unavailable SANDRA WISDOM Attending Clinician Unavailable LEI KIMBALL Attending Clinician Unavailable ROBYN GARY Attending Clinician Unavailable JUVENCIO ORNELAS Attending Clinician Unavailable SYLVESTER HUTCHINSON Attending Clinician Unavailable Sylvester Quijano Attending Clinician BYRON MALHOTRA Attending Clinician Unavailable CARLIE BRIONES Attending Clinician Unavailable MD ARAVIND Attending Clinician Unavailable BOT375 Attending Clinician Unavailable JONN SCHMIDT Attending Clinician Unavailable LUKE ANGELO Attending Clinician Unavailable GAURAV PURVIS Attending Clinician Unavailable LAB90 Attending Clinician Unavailable ANGELICA NEVAREZ Attending Clinician Unavailable RACHEL MAHONEY Attending Clinician Unavailable [place] KARTHIK, Rachel Munoz Attending Clinician SPENSER STOKES Attending Clinician Unavailable KELSEY WANG Attending Clinician Unavailable SIMI JOHN Attending Clinician Unavailable OLENA TREVIÑO Attending Clinician Unavailable JAROD TURPIN Attending Clinician Unavailable PLABPA Attending Clinician Unavailable JENNIFER BYNUM Attending Clinician Unavailable JALYN CRUZ Attending Clinician Unavailable MANOLO MARTINEZ Attending Clinician Unavailable GAUTAM GIVENS Attending Clinician Unavailable PL, TECH 1 Attending Clinician Unavailable LAB47 Attending Clinician Unavailable AMBNEFTALY_CHRISTINA Attending Clinician Unavailable ANNEMARIE GRAFF Attending Clinician Unavailable Alexandre Wick Attending Clinician SHEY BIANCHI Attending Clinician Unavailable Doctor Unassigned, [place] Attending Clinician Unavailable Shey Bianchi MD Attending Clinician ALEXANDRE DELGADO Attending Clinician Unavailable James Sosa MD Attending Clinician Aries Irvin Attending Clinician Unavailable ILIANA LAMAR Attending Clinician Unavailable Annemarie Alexander Attending Clinician Dannie Monroe MD Attending Clinician DANNIE MONROE Attending Clinician Unavailable MARIANO Admitting Clinician Unavailable ALEXANDRE DELGADO Admitting Clinician Unavailable Payers Payer Name Policy Type Policy Number Effective Date Expiration Date S antoniettareno [employer]ETNA MP CVS 9 [id number] 2022 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 [place] Elidia [id number] 2020 00:00:00 Problems Condition Condition Condition Status Onset Resolution Last Treating Co mments Source Name Details Category Date Date Treatment Clinician Date Paresthesi Paresthesi Disease Active K elsey as as - Seybold 00:00: - 00 Externa l Depression Depression Disease Active K elsey with with 05-28 Seybold somatizati somatizati 00:00: - on on 00 Externa l Iron Iron Disease Active Jelena deficiency deficiency [...] Externa l Lupus Lupus Disease Active Jelena (multi (multi 1-10 Seybold HCC) HCC) 00:00: - 00 Externa l PTSD PTSD Disease Active 2017-08 Univers (post-trau (post-trau 2-20 it y of matic matic 00:00: [place] stress stress 00 Medical disorder) disorder) Bran ch Galactorrh Galactorrh Disease Active 2016-08 U nivers ea ea 2-14 ity of 00:00: Medical Branch Decreased Decreased Disease Active 2016-08 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 0-12 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 00:00: Medical Branch Decreased Decreased Disease Active 2016-08 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 0-12 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 00:00: 00 Medical Branch Pain Pain Disease Active 2016-08 Univers 0-12 ity of 00:00: Medical Branch 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 0-12 it y of 00:00: Medical Branch 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 9-14 ity of 00:00: Medical Branch Manic Manic Disease Active 2017-0 Univers depression depression 9-14 it y of 00:00: [place] 00 Medical Branch 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 -14 ity of 00:00: [place] 00 Medical Branch Allergies, [...] of adverse Vomiting 00:00: [place] reaction 00 [facility] NAPROXEN DRUG Active N/V Univers INGREDI 04-28 ity of 00:00: [place] 00 [facility] Branch Naproxen Propensi Active ty to 5-19 adverse 00:00: reaction 00 to drug Codeine Propensi Active Jelena ty to 01-16 Seybold adverse 00:00: - reaction 00 Externa s l NO KNOWN Drug Active Univers ALLERGIE Class ity of S [facility] Social History Social Habit Start Date Stop Date Quantity Comments Source Gender identity 2022-09-04 Identifies as Jelena Ibrahim - 10:33:35 male gender External (finding) History of tobacco Cigarette Smoker Jelena Ibrahim - use External History SDOH Jelena nolasco - Alcohol Frequency Externa l History SDOH Jelena Ashley ld - Alcohol Std Drinks Shroudman al History SDOH Jelena nolasco - Alcohol Binge External Exposure to Not sure University of SARS-CoV-2 (event) [facility] Sexual orientation Univer sity of [facility] Alcohol intake 2023-05-28 2023-05-28 Current drinker Beth Ibrahim - 00:00:00 00:00:00 of alcohol External (finding) Tobacco use and 2022-12-22 2022-12-22 Smokeless tobacco Ke lsey Seybold - exposure 00:00:00 00:00:00 non-user External Alcohol Comment 2022-09-09 2022-09-09 rare Jelena Guevara ybold - 00:00:00 00:00:00 External History of Social 2020-08-02 2020-08-02 Univers ity of function 00:00:00 00:00:00 [facility] Tobacco Comment 2019-08-16 2019-08-16 Quit Universit y of 00:00:00 00:00:00 smoking/vaping [facility] earlier this year Branch Sex Assigned At [address] [facility] [address] [facility] 00:00:00 00:00:00 [facility] Smoking Status Start Date Stop Date Source Occasional tobacco 2022-12-22 00:00:00 Jelena Guevara ybold - smoker External Never smoked tobacco Jelena Guevarayb old - External Ex-smoker 2019-10-25 00:00:00 2019-10-25 [facility] 00:00:00 Medical Branch Medications Ordered Filled Start Stop Current Ordering Indication Dosage Frequency Signature Comments Components Source Medication Medication Date Date Medication? Clinician (SIG) Name Name Cyanocobala Yes Take by Reynold sey min - mouth. Seybold (VITAMIN B 10:25: - 12 OR) 13 Externa l Dicyclomine Yes 20mg Take 1 Ashlie ey HCl 20 MG - tablet (20 Seyb old oral Tablet 10:25: mg total) - 13 by mouth Externa every 6 l (six) hours. Trazodone Yes every 24 Ashlie ey HCl 100 MG 9-28 hours Seybold oral Tablet 10:25: - 13 Externa l Topiramate Yes 50mg TAKE ONE Reynold sey 50 MG oral 9-20 (1) Seybold Tablet 00:00: TABLET(S) - 00 BY MOUTH Externa EVERY l TWELVE HOURS. MELOXICAM 2022- No 10mg Take 10 mg K elsey OR 05-06 09-06 by mouth. Seybold 11:02: 00:00 - 12 :00 Externa l Dicyclomine Yes 20mg Take 1 Ashlie ey HCl 20 MG 9- tablet (20 Seyb old oral Tablet 10:32: mg total) - 52 by mouth Externa every 6 l (six) hours. Trazodone 2022-0 Yes every 24 Ashlie ey HCl 100 MG 9-06 hours Seybold oral Tablet 10:32: - 52 Externa l Cyanocobala 0 Yes Take by Reynold y min 9-06 mouth. Seybold (VITAMIN B 10:32: - 12 OR) 52 Externa l Ketorolac 2022-0 Yes [id number] 10mg Q.25D Take 1 Jelena Tromethamin 9-06 tablet (10 Se ybold e 10 MG 00:00: mg total) - oral Tablet 00 by mouth Exte rna every 6 l hours as needed for pain. Ketorolac 2022-0 Yes [id number] 10mg Q.25D Take 1 Jelena Tromethamin 9-06 tablet (10 Se ybold e 10 MG 00:00: mg total) - oral Tablet 00 by mouth Exte rna every 6 l hours as needed for pain. Ketorolac 0 2022- No [id number] 30mg Ke lsey Tromethamin 04-28 Seybold e (TORADOL) 14:00: 14:09 - 30 mg/mL 00 :00 Externa l Ketorolac 2022-0 2022- No [id number] 30mg 30 mg, Jelena Tromethamin 04-28 intramuscu S eybold e (TORADOL) 14:00: 14:09 lar, ONCE, - 30 mg/mL 00 :00 On Tue Externa 04/28/23 at l 0900, For 1 dose Cyanocobala 0 Yes Take by Reynold emmy min 8- mouth Seybold (VITAMIN B 08:57: - 12 OR) 25 Externa l Dicyclomine 2022-0 Yes 20mg Take [...] Seybold 08:57: - 25 Externa l Losartan 2023-0 Yes [id number] 100mg TAKE ONE Jelena Potassium 8-28 (1) Seybold (COZAAR) 00:00: TABLET(S) - 100 MG oral 00 BY MOUTH Exte rna Tablet ONCE A l DAY. Aripiprazol 2022-0 Yes 1{tbl} Take 1 Ke lsey e 20 MG 8-28 tablet by Seybold oral Tablet 00:00: mouth at - 00 bedtime. Externa l Losartan 2022-0 Yes [id number] 100mg TAKE ONE Jelena Potassium 8-28 (1) Seybold (COZAAR) 00:00: TABLET(S) - 100 MG oral 00 BY MOUTH Exte rna Tablet ONCE A l DAY. Aripiprazol 0 Yes 1{tbl} Take 1 Ke lsey e 20 MG 8-28 tablet by Seybold oral Tablet 00:00: mouth at - 00 bedtime. Externa l Losartan 0 Yes [id number] 100mg TAKE ONE Jelena Potassium 8-28 (1) Seybold (COZAAR) 00:00: TABLET(S) - 100 MG oral 00 BY MOUTH Exte rna Tablet ONCE A l DAY. Aripiprazol 0 Yes 1{tbl} Take 1 Ke lsey e 20 MG 8-28 tablet by Seybold oral Tablet 00:00: mouth at - 00 bedtime. Externa l Cyanocobala 0 Yes Take by Reynold sey min 8-25 mouth Seybold (VITAMIN B [...] oral Tablet 08:57: - 54 Externa l Aripiprazol 2022-0 2022- No Abilify Ke lsey e (Abilify) 8-25 08-25 Seybold 10 MG oral 08:57: 00:00 - Tablet 54 :00 Externa l Metoclopram 2022-0 2022- No 10mg Take 1 Reynold sey jonathan HCl 8-25 08-25 tablet (10 Seybo ld (Reglan) 10 08:57: 00:00 mg total) - MG oral 54 :00 by mouth 4 Shroudman a Tablet times l daily. Fluticasone 2023-0 Yes [id number] 1{puff} Inhale 1 Jelena -Salmeterol 8-25 6 puff into Sey bold (Advair 00:00: the lungs - Diskus) 00 2 times Externa 100-50 daily. l MCG/ACT inhalation AEROSOL POWDER, BREATH ACTIVATED Fluticasone 2023-0 Yes [id number] 1{puff} Inhale 1 Jelena -Salmeterol 8-25 6 puff into Sey bold (Advair 00:00: the lungs - Diskus) 00 2 times Externa 100-50 daily. l MCG/ACT inhalation AEROSOL POWDER, BREATH ACTIVATED Fluticasone 2023-0 Yes [id number] 1{puff} Inhale 1 Jelena -Salmeterol 8-25 6 puff into Sey bold (Advair 00:00: the lungs - Diskus) 00 2 times Externa 100-50 daily. l MCG/ACT inhalation AEROSOL POWDER, BREATH ACTIVATED Fluticasone 2023-0 Yes [id number] 1{puff} Inhale 1 Jelena -Salmeterol 8-25 6 puff into Sey bold (Advair 00:00: the lungs - Diskus) 00 2 times Externa 100-50 daily. l MCG/ACT inhalation AEROSOL POWDER, BREATH ACTIVATED Fluticasone 2023-0 2023- No [id number] 1{puff} Inhale 1 Jelena -Salmeterol 8-25 08-25 6 puff into Se ybold (Advair 00:00: 00:00 the lungs - Diskus) 00 :00 2 times Externa 100-50 daily. l MCG/ACT inhalation AEROSOL POWDER, BREATH ACTIVATED Potassium 2023-0 Yes [id number] 1{tbl} TAKE ONE Jelena Chloride ER 8-22 (1) Seybold 20 MEQ oral 00:00: TABLET(S) - Tab CR 00 BY MOUTH Externa DAILY. l Meclizine 2023-0 Yes [id number] TAKE ONE Jelena HCl 25 MG 8-22 (1) Seybold oral Tablet 00:00: TABLET(S) - 00 BY MOUTH Externa THREE l TIMES A DAY NEEDED. FeroSul 325 2022-0 Yes [id number] TAKE ONE Jelena (65 Fe) MG 8-22 (1) TABLET Sey bold oral Tablet 00:00: (325 MG - 00 TOTAL) BY Externa MOUTH l DAILY (WITH BREAKFAST) . Topiramate 2023-0 Yes 50mg Take 1 Kelse y 50 MG oral 8-22 tablet (50 Sey bold Tablet 00:00: mg total) - 00 by mouth Externa every 12 l hours. Potassium 2023-0 Yes [id number] 1{tbl} TAKE ONE Jelena Chloride ER 8-22 (1) Seybold 20 MEQ oral 00:00: TABLET(S) - Tab CR 00 BY MOUTH Externa DAILY. l Meclizine 3-0 Yes [id number] TAKE ONE Jelena HCl 25 MG 8-22 (1) Seybold oral Tablet 00:00: TABLET(S) - 00 BY MOUTH Externa THREE l TIMES A DAY NEEDED. FeroSul 325 2022-0 Yes [id number] TAKE ONE Jelena (65 Fe) MG 8-22 (1) TABLET Sey bold oral Tablet 00:00: (325 MG - 00 TOTAL) BY Externa MOUTH l DAILY (WITH BREAKFAST) . Potassium 3-0 Yes [id number] 1{tbl} TAKE ONE Jelena Chloride ER 8-22 (1) Seybold 20 MEQ oral 00:00: TABLET(S) - Tab CR 00 BY MOUTH Externa DAILY. l Meclizine 3-0 Yes [id number] TAKE ONE Jelena HCl 25 MG 8-22 (1) Seybold oral Tablet 00:00: TABLET(S) - 00 BY MOUTH Externa THREE l TIMES A DAY NEEDED. FeroSul 325 2022-0 Yes [id number] TAKE ONE Jelena (65 Fe) MG 8-22 (1) TABLET Sey bold oral Tablet 00:00: (325 MG - 00 TOTAL) BY Externa MOUTH l DAILY (WITH BREAKFAST) . Topiramate 2023-0 Yes 50mg Take 1 Kelse y 50 MG oral 8-22 tablet (50 Sey bold Tablet 00:00: mg total) - 00 by mouth Externa every 12 l hours. Potassium 2023-0 Yes [id number] 1{tbl} TAKE ONE Jelena Chloride ER 8-22 (1) Seybold 20 MEQ oral 00:00: TABLET(S) - Tab CR 00 BY MOUTH Externa DAILY. l Meclizine 0 Yes [id number] TAKE ONE Jelena HCl 25 MG 8-22 (1) Seybold oral Tablet 00:00: TABLET(S) - 00 BY MOUTH Externa THREE l TIMES A DAY NEEDED. FeroSul 325 2022-0 Yes [id number] TAKE ONE Jelena (65 Fe) MG 8-22 (1) TABLET Sey bold oral Tablet 00:00: (325 MG - 00 TOTAL) BY Externa MOUTH l DAILY (WITH BREAKFAST) . Topiramate Yes 50mg Take 1 Kelse y 50 MG oral 8-22 tablet (50 Sey bold Tablet 00:00: mg total) - 00 by mouth Externa every 12 l hours. Topiramate 2022-0 2022- No TAKE TWO Ke lsey 25 MG oral 8-21 08-25 (2) Seybold Tablet 00:00: 00:00 TABLETS - 00 :00 EVERY 12 Externa HOURS. l albuterol Yes 1{puff} Inhale [address] HFA 8-17 puff by [facility] (VENTOLIN 11:24: mouth via Med ical HFA) 90 00 inhaler Center mcg/actuati every 6 on inhaler (six) hours as needed for Wheezing. ARIPiprazol 0 Yes 15mg QD Take 1.[address] [facility] [address] [facility] (ABILIFY) 8-17 tablets [facility] 10 MG 11:24: (15 mg Medical tablet 00 total) by Center mouth daily. budesonide Yes 1{puff} Q.5D Inhale [address] [facility] (PULMICORT) 8-17 puff by [facility] 180 11:24: mouth via Medical mcg/actuati [address] on inhaler (two) times daily. cholecalcif Yes [id number] Q7D Take [address] juan, 8-17 tablet [facility] vitamin D3, 11:24: (50,000 Med ical 1,250 mcg 00 Units Center (50,000 total) by unit) Tab mouth once a week. cyanocobala Yes 100ug QD Take [address] [facility] min 8-17 tablet [facility] (VITAMIN 11:24: (100 mcg Medic al B-12) 100 00 total) by Cente r MCG tablet mouth daily. cyclobenzap 2023-0 Yes 10mg Take [address] [facility] rine 8-17 tablet (10 [facility] (FLEXERIL) 11:24: mg total) Me dical 10 MG 00 by mouth 3 Center tablet (three) times daily as needed for Muscle spasms. dicyclomine 2023-0 Yes 20mg Take [address] [facility] (BENTYL) 20 8-17 tablet (20 Alejandrina kes mg tablet 11:24: mg total) Med ical 00 by mouth Center every 6 (six) hours. docusate 2023-0 Yes 100mg Q.5D Take [address] [facility] sodium 8-17 capsule [facility] (COLACE) 11:24: (100 mg Medica l 100 MG 00 total) by Center capsule mouth 2 (two) times daily. DULoxetine 2023-0 Yes 30mg QD Take 1 [facility] (CYMBALTA) 8-17 capsule [facility] 30 MG 11:24: (30 mg Medical capsule 00 total) by Center mouth daily. ferrous 2023-0 Yes 325mg Take [address] [facility] sulfate 325 8-17 tablet [facility] (65 FE) MG 11:24: (325 mg Medi nereida tablet 00 total) by Center mouth daily with breakfast. hydroCHLORO 2023-0 Yes 12.5mg QD Take [address] thiazide 8-17 tablet [facility] (HYDRODIURI 11:24: (12.5 mg Me dical L) 12.5 MG 00 total) by Cent er tablet mouth daily. hydrOXYzine 2023-0 Yes 50mg Take [address] [facility] (ATARAX) 25 8-17 tablets [facility] MG tablet 11:24: (50 mg Medica l 00 total) by Center mouth 3 (three) times daily as needed for Itching. losartan 2023-0 Yes 100mg QD Take [address] [facility] (COZAAR) 8-17 tablet [facility] 100 MG 11:24: (100 mg Medical tablet 00 total) by Center mouth daily. meclizine 2023-0 Yes 25mg Take [address] [facility] (ANTIVERT) 8-17 tablet (25 Cesario es 25 MG 11:24: mg total) Medical tablet 00 by mouth 3 Center (three) times daily as needed. MELOXICAM 2023-0 Yes 10mg Take 10 mg [facility] [...] Center mouth 2 (two) times daily. potassium 2022-0 Yes 20meq Q.5D Take [address] [facility] chloride 8-17 mEq by [facility] (KLOR-CON) 11:24: mouth 2 Medi nereida 20 mEq 00 (two) Center packet times daily. propranoloL 2022-0 Yes 10mg Q.[id number] Take [address] [facility] (INDERAL) 8-17 [id number] tablet (10 [facility] 10 MG 11:24: 3D [...] tablet 00 total) by Center mouth nightly. albuterol 2022-0 Yes 1{puff} Inhale [address] HFA 8-17 puff by [facility] (VENTOLIN 11:24: mouth via Med ical HFA) 90 00 inhaler Center mcg/actuati every 6 on inhaler (six) hours as needed for Wheezing. ARIPiprazol 3-0 Yes 15mg QD Take 1.[address] [facility] (ABILIFY) 8-17 tablets [facility] 10 MG 11:24: (15 mg Medical tablet 00 total) by Center mouth daily. budesonide 2022-0 Yes 1{puff} Q.5D Inhale [address] [facility] [address] (PULMICORT) 8-17 puff by [facility] 180 11:24: mouth via Medical mcg/actuati [address] on inhaler (two) times daily. cholecalcif 2022-0 Yes [id number] Q7D Take [address] juan, [...] daily as needed for Muscle spasms. dicyclomine 3-0 Yes 20mg Take [address] [facility] (BENTYL) 20 8-17 tablet (20 Alejandrina kes mg tablet 11:24: mg total) Med ical 00 by mouth Center every 6 (six) hours. docusate 2023-0 Yes 100mg Q.5D Take [address] [facility] sodium 8-17 capsule [facility] (COLACE) 11:24: (100 mg Medica l 100 MG 00 total) by Center capsule mouth 2 (two) times daily. DULoxetine 2023-0 Yes 30mg QD Take 1 [facility] (CYMBALTA) 8-17 capsule [facility] 30 MG 11:24: (30 mg Medical capsule 00 total) by Center mouth daily. ferrous 2023-0 Yes 325mg Take [address] [facility] sulfate 325 8-17 tablet [facility] (65 FE) MG 11:24: (325 mg Medi nereida tablet 00 total) by Center mouth daily with breakfast. hydroCHLORO 2023-0 Yes 12.5mg QD Take [address] thiazide 8-17 tablet [facility] (HYDRODIURI 11:24: (12.5 mg Me dical L) 12.5 MG 00 total) by Cent er tablet mouth daily. hydrOXYzine 2023-0 Yes 50mg Take [address] [facility] (ATARAX) 25 8-17 tablets [facility] MG tablet 11:24: (50 mg Medica l 00 total) by Center mouth 3 (three) times daily as needed for Itching. losartan 2023-0 Yes 100mg QD Take [address] [facility] (COZAAR) 8-17 tablet [facility] 100 MG 11:24: (100 mg Medical tablet 00 total) by Center mouth daily. meclizine 2023-0 Yes 25mg Take [address] [facility] (ANTIVERT) 8-17 tablet (25 Cesario es 25 MG 11:24: mg total) Medical tablet 00 by mouth 3 Center (three) times daily as needed. MELOXICAM 2023-0 Yes 10mg Take [address] [facility] ORAL 8-17 by mouth. [facility] 11:24: Medical 00 Center etonogestre 2022-0 Yes 68mg [address] [facility] [address] [facility] 8-17 Subdermal [facility] (Nexplanon) 11:24: route Medic al 68 mg 00 once. Center implant ondansetron 3-0 Yes 4mg Take [address] [facility] (ZOFRAN-ODT 8-17 tablet (4 Cesario es ) 4 MG 11:24: mg total) Medica l disintegrat 00 by mouth 4 Ce nter ing tablet (four) times daily as needed for Nausea. orphenadrin 2023-0 Yes 100mg Q.5D Take [address] [facility] (NORFLEX) 8-17 tablet [facility] 100 mg 11:24: (100 mg Medical tablet 00 total) by Center mouth 2 (two) times daily. potassium 2023-0 Yes 20meq Q.5D Take [address] [facility] chloride 8-17 mEq by [facility] (KLOR-CON) 11:24: mouth 2 Medi nereida 20 mEq 00 (two) Center packet times daily. propranoloL 2023-0 Yes 10mg Q.[id number] Take [address] [facility] (INDERAL) 8-17 [id number] tablet (10 [facility] 10 MG 11:24: 3D [...] 00 total) by Center mouth nightly. Cyanocobala Yes Take by Reynold sey min 7-12 mouth Seybold (VITAMIN B 10:25: - 12 OR) 36 Externa l Metoclopram 0 Yes 10mg Take 1 Ashlie ey jonathan HCl 7-12 tablet (10 Seybol d (Reglan) 10 10:25: mg total) - MG oral 36 by mouth 4 Shroudman a Tablet times l daily Dicyclomine 0 [...] Externa l Topiramate 2022-0 Yes TAKE ONE Reynold sey 25 MG oral 7-06 (1) Seybold Tablet 00:00: TABLET(S) - 00 BY MOUTH Externa ONCE A DAY l FOR 3 DAYS , THEN ONE (1) TABLET EVERY 12 HOURS FOR 3 DAYS, THEN TWO (2) TABLETS EVERY 12 HOURS THEREAFTER . predniSONE 0 Yes TAKE FOUR Ke lsey (DELTASONE) 6-24 [...] HOURS Solution NEEDED. Cyanocobala Yes Take by Reynold sey min 6-21 mouth Seybold (VITAMIN B 11:04: - 12 OR) 18 Externa l Metoclopram Yes 10mg Take 1 Ashlie ey jonathan HCl 6-21 tablet (10 Seybol d (Reglan) 10 11:04: mg total) - MG oral 18 by mouth 4 Shroudman a Tablet times l daily Dicyclomine 2022-0 [...] Tablet 11:04: - 18 Externa l Propranolol 2022-0 Yes [id number] 10mg Take 1 Jelena HCl 10 MG 6-21 tablet (10 Seyb old oral Tablet 00:00: mg total) - 00 by mouth 3 Externa times l daily hydroCHLORO 2023-0 Yes [id number] 12.5mg Take 1 Jelena thiazide 6-21 capsule Seybold 12.5 MG 00:00: (12.5 mg - oral 00 total) by Externa Capsule mouth l daily Propranolol 3-0 Yes [id number] 10mg Take 1 Jelena HCl 10 MG 6-21 tablet (10 Seyb old oral Tablet 00:00: mg total) - 00 by mouth 3 Externa times l daily hydroCHLORO 3-0 Yes [id number] 12.5mg Take 1 Jelena thiazide 6-21 capsule Seybold 12.5 MG 00:00: (12.5 mg - oral 00 total) by Externa Capsule mouth l daily Potassium 3-0 Yes [id number] 1{tbl} Take 1 Jelena Chloride ER 6-21 tablet by Sey bold 20 MEQ oral 00:00: mouth - Tab CR 00 daily Externa l Propranolol 2023-0 Yes [id number] 10mg Take 1 Jelena HCl 10 MG 6-21 tablet (10 Seyb old oral Tablet 00:00: mg total) - 00 by mouth 3 Externa times l daily Budesonide 3-0 Yes [id number] Inhale 2 Jelena 90 MCG/ACT 6-21 inhalation Sey bold inhalation 00:00: s into the - AEROSOL 00 lungs Externa POWDER, daily l BREATH ACTIVATED hydroCHLORO 3-0 Yes [id number] 12.5mg Take 1 Jelena thiazide 6-21 capsule Seybold 12.5 MG 00:00: (12.5 mg - oral 00 total) by Externa Capsule mouth l daily Potassium 3-0 Yes [id number] 1{tbl} Take 1 Jelena Chloride ER 6-21 tablet by Sey bold 20 MEQ oral 00:00: mouth - Tab CR 00 daily Externa l Propranolol 3-0 Yes [id number] 10mg Take 1 Jelena HCl 10 MG 6-21 tablet (10 Seyb old oral Tablet 00:00: mg total) - 00 by mouth 3 Externa times l daily Budesonide 2022-0 Yes [id number] Inhale 2 Jelena 90 MCG/ACT 6-21 inhalation Sey bold inhalation 00:00: s into the - AEROSOL 00 lungs Externa POWDER, daily l BREATH ACTIVATED hydroCHLORO 2022-0 Yes [id number] 12.5mg Take 1 Jelena thiazide 6-21 capsule Seybold 12.5 MG 00:00: (12.5 mg - oral 00 total) by Externa Capsule mouth l daily Propranolol 3-0 Yes [id number] 10mg Take 1 Jelena HCl 10 MG 6-21 tablet (10 Seyb old oral Tablet 00:00: mg total) - 00 by mouth 3 Externa times l daily hydroCHLORO 3-0 Yes [id number] 12.5mg Take 1 Jelena thiazide 6-21 capsule Seybold 12.5 MG 00:00: (12.5 mg - oral 00 total) by Externa Capsule mouth l daily Propranolol 3-0 Yes [id number] 10mg Take 1 Jelena HCl 10 MG 6-21 tablet (10 Seyb old oral Tablet 00:00: mg total) - 00 by mouth 3 Externa times l daily hydroCHLORO 2023-0 Yes [id number] 12.5mg Take 1 Jelena thiazide 6-21 capsule Seybold 12.5 MG 00:00: (12.5 mg - oral 00 total) by Externa Capsule mouth l daily Budesonide 2022-0 2022- No [id number] Inhale 2 Jelena 90 MCG/ACT 6-21 08-25 inhalation Se ybold inhalation 00:00: 00:00 s into the - AEROSOL 00 :00 lungs Externa POWDER, daily l BREATH ACTIVATED Meclizine 2022-0 Yes [id number] TAKE ONE Jelena HCl 25 MG 6-19 (1) Seybold oral Tablet 00:00: TABLET(S) - 00 BY MOUTH Externa THREE l TIMES A DAY NEEDED. Meclizine 2022-0 Yes [id number] TAKE ONE Jelena HCl 25 MG 6-19 (1) Seybold oral Tablet 00:00: TABLET(S) - 00 BY MOUTH Externa THREE l TIMES A DAY NEEDED. Gabapentin 2022-0 Yes [id number] 100mg Take 1 Jelena 100 MG oral 6-18 capsule Seybo ld Capsule 00:00: (100 mg - 00 total) by Externa mouth 3 l times daily Gabapentin 2022-0 2022- No [id number] 100mg Take 1 Jelena 100 MG oral 6-18 07-12 capsule Seyb old Capsule 00:00: 00:00 (100 mg - 00 :00 total) by Externa mouth 3 l times daily Losartan 2022-0 Yes [id number] 100mg Take 1 Ke lsey Potassium 6-05 tablet Seybold (COZAAR) 00:00: (100 mg - 100 MG oral 00 total) by Ext jonathan Tablet mouth l daily Losartan 2022-0 Yes [id number] 100mg Take 1 Ke lsey Potassium 6-05 tablet Seybold (COZAAR) 00:00: (100 mg - 100 MG oral 00 total) by Ext jonathan Tablet mouth l daily Losartan 2022-0 Yes [id number] 100mg Take 1 Ke lsey Potassium 6-05 tablet Seybold (COZAAR) 00:00: (100 mg - 100 MG oral 00 total) by Ext jonathan Tablet mouth l daily Metoclopram 2022-0 Yes 10mg Take 1 Ashlie ey jonathan HCl 5-31 tablet (10 Seybol d (Reglan) 10 10:58: mg total) - MG oral 34 by mouth 4 Shroudman a Tablet times l daily Dicyclomine 2022-0 Yes 20mg Take 1 Ashlie ey HCl 20 MG 5-31 tablet (20 Seyb old oral Tablet 10:58: mg total) - 34 by mouth Externa every 6 l (six) hours Cyanocobala 2022-0 Yes Take by Reynold sey min 5-31 mouth Seybold (VITAMIN B 10:55: - 12 OR) 58 Externa l Topiramate 2023-0 Yes Topamax Ashlie ey (Topamax) 5-31 25mg [...] 2 po q 12 hrs, Meclizine Yes [id number] TAKE ONE Jelena HCl 25 MG 5-22 (1) Seybold oral Tablet 00:00: TABLET(S) - 00 BY MOUTH Externa THREE l TIMES A DAY NEEDED. Meclizine 0 2022- No [id number] TAKE ONE Jelena HCl 25 MG 5-22 06-19 (1) Seybold oral Tablet 00:00: 00:00 TABLET(S) - 00 :00 BY MOUTH Externa THREE l TIMES A DAY NEEDED. Losartan Yes [id number] 1{tbl} Take 1 K elsey Potassium-H 5-15 tablet by Sey bold CTZ 50-12.5 00:00: mouth - MG oral 00 daily Externa Tablet l Gabapentin Yes [id number] 100mg Take 1 Jelena 100 MG oral 5-15 capsule Seybo ld Capsule 00:00: (100 mg - 00 total) by Externa mouth 3 l times daily Gabapentin 0 2022- No [id number] 100mg Take 1 Jelena 100 MG oral 5-15 06-16 capsule Seyb old Capsule 00:00: 00:00 (100 mg - 00 :00 total) by Externa mouth 3 l times daily Cholecalcif 0 Yes Jelena juan 5-06 Seybold (Vitamin 00:00: - D3) 1.25 MG 00 Externa (02184 UT) l oral Capsule Cholecalcif 2022-0 Yes Jelena juan 5-06 Seybold (Vitamin 00:00: - D3) 1.25 MG 00 Externa (56262 UT) l oral Capsule Cholecalcif 0 Yes TAKE ONE Ke lsey juan 5-06 (1) Seybold (Vitamin 00:00: CAPSULE(S) - D3) 1.25 MG 00 BY MOUTH Exte rna (25316 UT) TWICE A l oral WEEK. Capsule Cholecalcif Yes TAKE ONE Jc bangura juan 5- (1) Seybold (Vitamin 00:00: CAPSULE(S) - D3) 1.25 MG 00 BY MOUTH Exte rna (74679 UT) TWICE A l oral WEEK. Capsule Cholecalcif Yes TAKE ONE Jc fieldey juan - (1) Seybold (Vitamin 00:00: CAPSULE(S) - D3) 1.25 MG 00 BY MOUTH Exte rna (90188 UT) TWICE A l oral WEEK. Capsule Cholecalcif Yes Jelena juan - Seybold (Vitamin 00:00: - D3) 1.25 MG 00 Externa (42275 UT) l oral Capsule Trazodone 2022- No [id number] 100mg Take 1 Jelena HCl 100 MG 5-01 05-01 tablet Seybol d oral Tablet 11:10: 00:00 (100 mg - 14 :00 total) by Externa mouth at l bedtime Cyanocobala Yes Take by Reynold sey min 5-01 mouth Seybold (VITAMIN B 09:56: - 12 OR) 28 Externa l Tramadol Yes [id number] 50mg Q.25D Take 1 K elsey HCl 5-01 tablet (50 Seybold (ULTRAM) 50 00:00: mg total) - MG oral 00 by mouth Externa Tablet every 6 l hours as needed for pain Tramadol 0 Yes [id number] 50mg Q.25D Take 1 K elsey HCl 5-01 tablet (50 Seybold (ULTRAM) 50 00:00: mg total) - MG oral 00 by mouth Externa Tablet every 6 l hours as needed for pain Tramadol 0 Yes [id number] 50mg Q.25D Take 1 K elsey HCl 5-01 tablet (50 Seybold (ULTRAM) 50 00:00: mg total) - MG oral 00 by mouth Externa Tablet every 6 l hours as needed for pain Tramadol 0 Yes [id number] 50mg Q.25D Take 1 K elsey HCl 5-01 tablet (50 Seybold (ULTRAM) 50 00:00: mg total) - MG oral 00 by mouth Externa Tablet every 6 l hours as needed for pain Tramadol 2022-0 3- No [id number] 50mg Q.25D Take 1 Jelena HCl 5-01 [...] - 00 Externa l Trazodone 3-0 Yes [id number] 100mg Take 1 K elsey HCl 100 MG 4-24 tablet Seybold oral Tablet 08:55: (100 mg - 22 total) by Externa mouth at l bedtime Cyanocobala 3-0 Yes Take by Reynold sey min 4-24 mouth Seybold (VITAMIN B 08:55: - 12 OR) 22 Externa l Albuterol 3-0 Yes [id number] 2{puff} Q.25D Inhale 2 Jelnea HFA 108 (90 4-24 puffs into Se ybold Base) 00:00: the lungs - MCG/ACT IN 00 every 6 [place] a AERS hours as l needed for wheezing or shortness of breath Albuterol 2022-0 Yes [id number] 2{puff} Q.25D Inhale 2 Jelena HFA 108 (90 4-24 puffs into Se ybold Base) 00:00: the lungs - MCG/ACT IN 00 every 6 [place] a AERS hours as l needed for wheezing or shortness of breath Albuterol 2022-0 Yes [id number] 2{puff} Q.25D Inhale 2 Jelena HFA 108 (90 4-24 puffs into Se ybold Base) 00:00: the lungs - MCG/ACT IN 00 every 6 [place] a AERS hours as l needed for wheezing or shortness of breath Meclizine 2022-0 Yes [id number] TAKE ONE Jelena HCl 25 MG 4-24 (1) Seybold oral Tablet 00:00: TABLET(S) - 00 BY MOUTH Externa THREE l TIMES A DAY NEEDED. Albuterol 2022-0 Yes [id number] 2{puff} Q.25D Inhale 2 Jelena HFA 108 (90 4-24 puffs into Se ybold [employer]) 00:00: the lungs - MCG/ACT IN 00 every 6 [place] a AERS hours as l needed for wheezing or shortness of breath Albuterol 2022-0 Yes [id number] 2{puff} Q.25D Inhale 2 Jelena HFA 108 (90 4-24 puffs into Se ybold [employer]) 00:00: the lungs - MCG/ACT IN 00 every 6 [place] a AERS hours as l needed for wheezing or shortness of breath Albuterol 2022-0 Yes [id number] 2{puff} Q.25D Inhale 2 Jelena HFA 108 (90 4-24 puffs into Se ybold [employer]) 00:00: the lungs - MCG/ACT IN 00 every 6 [place] a AERS hours as l needed for wheezing or shortness of breath Albuterol 2022-0 Yes [id number] 2{puff} Q.25D Inhale 2 Jelena HFA 108 (90 4-24 puffs into Se ybold [employer]) 00:00: the lungs - MCG/ACT IN 00 every 6 [place] a AERS hours as l needed for wheezing or shortness of breath Albuterol 2022-0 Yes [id number] 2{puff} Q.25D Inhale 2 Jelena HFA 108 (90 4-24 puffs into Se ybold Base) 00:00: the lungs - MCG/ACT IN 00 every 6 [place] a AERS hours as l needed for wheezing or shortness of breath Albuterol 2023-0 Yes [id number] 2{puff} Q.25D Inhale 2 Jelena HFA 108 (90 4-24 puffs into Se ybold [employer]) 00:00: the lungs - MCG/ACT IN 00 every 6 [place] a AERS hours as l needed for wheezing or shortness of breath Cyclobenzap 2023-0 Yes 10mg Q.[id number] Take 1 Jelena rine HCl 10 4-22 [id number] tablet (10 Seybold MG oral 00:00: 3D mg total) - Tablet 00 by mouth Externa every 8 l hours as needed. Cyclobenzap 2023-0 Yes 10mg Q.[id number] Take 1 Jelena rine HCl 10 4-22 [id number] tablet (10 Seybold MG oral 00:00: 3D mg total) - Tablet 00 by mouth Externa every 8 l hours as needed. Cyclobenzap 2023-0 Yes 10mg Q.[id number] Take 1 Jelena rine HCl 10 4-22 [id number] tablet (10 Seybold MG oral 00:00: 3D mg total) - Tablet 00 by mouth Externa every 8 l hours as needed Cyclobenzap 2023-0 Yes 10mg Q.[id number] Take 1 Jelena rine HCl 10 4-22 [id number] tablet (10 Seybold MG oral 00:00: 3D mg total) - Tablet 00 by mouth Externa every 8 l hours as needed Cyclobenzap 2023-0 Yes 10mg Q.[id number] Take 1 Jelena rine HCl 10 4-22 [id number] tablet (10 Seybold MG oral 00:00: 3D mg total) - Tablet 00 by mouth Externa every 8 l hours as needed Cyclobenzap 2023-0 Yes 10mg Q.[id number] Take 1 Jelena rine HCl 10 4-22 [id number] tablet (10 Seybold MG oral 00:00: 3D mg total) - Tablet 00 by mouth Externa every 8 l hours as needed Cyclobenzap 2023-0 Yes 10mg Q.[id number] Take 1 Jelena rine HCl 10 4-22 [id number] tablet (10 Seybold MG oral 00:00: 3D mg total) - Tablet 00 by mouth Externa every 8 l hours as needed Cyclobenzap 2023-0 Yes 10mg Q.[id number] Take 1 Jelena rine HCl 10 4-22 [id number] tablet (10 Seybold MG oral 00:00: 3D mg total) - Tablet 00 by mouth Externa every 8 l hours as needed Cyclobenzap 2023-0 Yes 10mg Q.[id number] Take 1 Jelena rine HCl 10 4-22 [id number] tablet (10 Seybold MG oral 00:00: 3D mg total) - Tablet 00 by mouth Externa every 8 l hours as needed. Gabapentin 3-0 Yes [id number] 100mg Take 1 Jelena 100 MG oral 4-20 capsule Seybo ld Capsule 00:00: (100 mg - 00 total) by Externa mouth 3 l times daily Gabapentin 3-0 Yes [id number] 100mg Take 1 Jelena 100 MG oral 4-20 capsule Seybo ld Capsule 00:00: (100 mg - 00 total) by Externa mouth 3 l times daily Aripiprazol 3-0 Yes 15mg Take 1 Ashlie [...] by mouth Externa at l bedtime. Trazodone 2023-0 Yes [id number] 100mg Take 1 K elsey HCl 100 MG 4-13 tablet Seybold oral Tablet 10:58: (100 mg - 09 total) by Externa mouth at l bedtime Cyanocobala 3-0 Yes Take by Reynold sey min 4-13 mouth Seybold (VITAMIN B 10:58: - 12 OR) 09 Externa l Trazodone 2023-0 Yes [id number] 100mg Take 1 K elsey HCl 100 MG 4-10 tablet Seybold oral Tablet 11:00: (100 mg - 07 total) by Externa mouth at l bedtime Cyanocobala 2023-0 Yes Take by Reynold sey min 4-10 mouth Seybold (VITAMIN B 11:00: - 12 OR) 07 Externa l Orphenadrin 2023-0 Yes 100mg Q.5D Take 1 Reynold sey e Citrate 4-10 tablet Seybold CR 100 MG 00:00: (100 mg - oral Tablet 00 total) by Ext jonathan 12 Hour mouth 2 l Sustained times Release daily as needed. Orphenadrin 2023-0 Yes 100mg Q.5D Take 1 Reynold sey e Citrate 4-10 tablet Seybold CR 100 MG 00:00: (100 mg - oral Tablet 00 total) by Ext jonathan 12 Hour mouth 2 l Sustained times Release daily as needed. Propranolol 2023-0 Yes [id number] TAKE ONE Jelena HCl 10 MG 4-10 (1) Seybold oral Tablet 00:00: TABLET(S) - 00 BY MOUTH Externa THREE l TIMES A DAY. Propranolol 2023-0 Yes [id number] TAKE ONE Jelena HCl 10 MG 4-10 [...] Release daily as needed Propranolol 2023-0 Yes [id number] TAKE ONE Jelena HCl 10 MG 4-10 [...] Release daily as needed Propranolol 2023-0 Yes [id number] TAKE ONE Jelena HCl 10 MG 4-10 [...] Orphenadrin 3-0 Yes 100mg Q.5D Take 1 Reynold sey e Citrate 4-10 tablet Seybold CR 100 MG 00:00: (100 mg - oral Tablet 00 total) by Ext jonathan 12 Hour mouth 2 l Sustained times Release daily as needed. Propranolol 2022-0 2023- No [id number] TAKE ONE Jelena HCl 10 MG 4-10 06-21 (1) Seybold oral Tablet 00:00: 00:00 TABLET(S) - 00 :00 BY MOUTH Externa THREE l TIMES A DAY. Meloxicam 2022-0 Yes [id number] 15mg Take 1 Jelena 15 MG oral 4-06 tablet (15 Sey bold Tablet 00:00: mg total) - 00 by mouth Externa daily l Meloxicam 2022-0 Yes [id number] 15mg Take 1 Jelena 15 MG oral 4-06 tablet (15 Sey bold Tablet 00:00: mg total) - 00 by mouth Externa daily l Meloxicam 2022-0 Yes [id number] 15mg Take 1 Jelena 15 MG oral 4-06 tablet (15 Sey bold Tablet 00:00: mg total) - 00 by mouth Externa daily l Meloxicam 2022-0 Yes [id number] 15mg Take 1 Jelena 15 MG oral 4-06 tablet (15 Sey bold Tablet 00:00: mg total) - 00 by mouth Externa daily l Meloxicam 2022-0 Yes [id number] 15mg Take 1 Jelena 15 MG oral 4-06 tablet (15 Sey bold Tablet 00:00: mg total) - 00 by mouth Externa daily l Meloxicam 3-0 Yes [id number] 15mg Take 1 Jelena 15 MG oral 4-06 tablet (15 Sey bold Tablet 00:00: mg total) - 00 by mouth Externa daily l Meloxicam 3-0 Yes [id number] 15mg Take 1 Jelena 15 MG oral 4-06 tablet (15 Sey bold Tablet 00:00: mg total) - 00 by mouth Externa daily l Meloxicam 2023-0 Yes [id number] 15mg Take 1 Jelena 15 MG oral 4-06 tablet (15 Sey bold Tablet 00:00: mg total) - 00 by mouth Externa daily l Meloxicam 3-0 Yes [id number] 15mg Take 1 Jelena 15 MG oral 4-06 tablet (15 Sey bold Tablet 00:00: mg total) - 00 by mouth Externa daily l Meloxicam 3-0 3- No [id number] 15mg Take 1 Jelena 15 MG oral 4-06 09-06 tablet (15 Se ybold Tablet 00:00: 00:00 mg total) - 00 :00 by mouth Externa daily l Duloxetine 3-0 Yes 30mg Take 1 Kelse y HCl 30 MG 3-31 capsule Seybold oral Cap DR 00:00: (30 mg - Particles 00 total) by Exter na mouth l every morning. Duloxetine 3-0 Yes 30mg Take 1 Kelse y HCl 30 MG 3-31 capsule Seybold oral Cap DR 00:00: (30 mg - Particles 00 total) by Exter na mouth l every morning. Duloxetine 3-0 Yes 30mg Take 1 Kelse [...] Exter na mouth l every morning. Duloxetine 3-0 Yes 30mg Take 1 Kelse y HCl 30 MG 3-31 capsule Seybold oral Cap DR 00:00: (30 mg - Particles 00 total) by Exter na mouth l every morning. Meclizine 3-0 Yes [id number] TAKE ONE Jelena HCl 25 MG 3-24 (1) Seybold oral Tablet 00:00: TABLET(S) - 00 BY MOUTH Externa THREE l TIMES A DAY NEEDED. Meclizine 3-0 Yes [id number] TAKE ONE Jelena HCl 25 MG 3-24 (1) Seybold oral Tablet 00:00: TABLET(S) - 00 BY MOUTH Externa THREE l TIMES A DAY NEEDED. Meclizine 2022-0 Yes [id number] TAKE ONE Jelena HCl 25 MG 3-24 (1) Seybold oral Tablet 00:00: TABLET(S) - 00 BY MOUTH Externa THREE l TIMES A DAY NEEDED. Losartan 2022-0 Yes [id number] 1{tbl} Take 1 K elsey Potassium-H 3-22 tablet by Sey bold CTZ 50-12.5 00:00: mouth - MG oral 00 daily Externa Tablet l Losartan 2022-0 Yes [id number] 1{tbl} Take 1 K elsey Potassium-H 3-22 tablet by Sey bold CTZ 50-12.5 00:00: mouth - MG oral 00 daily Externa Tablet l Losartan 2022-0 Yes [id number] 1{tbl} Take 1 K elsey Potassium-H 3-22 tablet by Sey bold CTZ 50-12.5 00:00: mouth - MG oral 00 daily Externa Tablet l Losartan 2022-0 Yes [id number] 1{tbl} Take 1 K elsey Potassium-H 3-22 tablet by Sey bold CTZ 50-12.5 00:00: mouth - MG oral 00 daily Externa Tablet l Propranolol 2022-0 2022- No [id number] TAKE ONE Jelena HCl 10 MG 3-10 04-10 (1) Seybold oral Tablet 00:00: 00:00 TABLET(S) - 00 :00 BY MOUTH Externa THREE l TIMES A DAY. Cholecalcif 2022-0 2023- No [id number] 04409A Take 1 Jelena juan 1.25 3-02 04-10 capsule Seybol d MG ([id number] 00:00: 00:00 (50,000 - UT) oral 00 :00 units Externa Capsule total) by l mouth twice a week for 8 doses Trazodone 3-0 Yes [id number] 100mg Take 100 Jelena HCl 100 MG 2-28 mg by Seybold oral Tablet 09:11: mouth at - 07 bedtime Externa l Cyanocobala 2022-0 Yes Take by Reynold sey min 2-28 [...] A l DAY. hydrOXYzine 2023-0 Yes 50mg Q.[id number] Take 1 Jelena HCl 50 MG 2-13 [id number] tablet (50 Seybold oral Tablet 00:00: 3D mg total) - 00 by mouth Externa every 8 l hours as needed. hydrOXYzine 2023-0 Yes 50mg Q.[id number] Take 1 Jelena HCl 50 MG 2-13 [id number] tablet (50 Seybold oral Tablet 00:00: 3D mg total) - 00 by mouth Externa every 8 l hours as needed. hydrOXYzine 2023-0 Yes 50mg Q.[id number] Take 1 Jelena HCl 50 MG 2-13 [id number] tablet (50 Seybold oral Tablet 00:00: 3D mg total) - 00 by mouth Externa every 8 l hours as needed hydrOXYzine 2023-0 Yes 50mg Q.[id number] Take 1 Jelena HCl 50 MG 2-13 [id number] tablet (50 Seybold oral Tablet 00:00: 3D mg total) - 00 by mouth Externa every 8 l hours as needed hydrOXYzine 2023-0 Yes 50mg Q.[id number] Take 1 Jelena HCl 50 MG 2-13 [id number] tablet (50 Seybold oral Tablet 00:00: 3D mg total) - 00 by mouth Externa every 8 l hours as needed hydrOXYzine 2023-0 Yes 50mg Q.[id number] Take 1 Jelena HCl 50 MG 2-13 [id number] tablet (50 Seybold oral Tablet 00:00: 3D mg total) - 00 by mouth Externa every 8 l hours as needed hydrOXYzine 2023-0 Yes 50mg Q.[id number] Take 1 Jelena HCl 50 MG 2-13 [id number] tablet (50 Seybold oral Tablet 00:00: 3D mg total) - 00 by mouth Externa every 8 l hours as needed hydrOXYzine 2023-0 Yes 50mg Q.[id number] Take 1 Jelena HCl 50 MG 2-13 [id number] tablet (50 Seybold oral Tablet 00:00: 3D mg total) - 00 by mouth Externa every 8 l hours as needed. hydrOXYzine 2023-0 Yes 50mg Q.[id number] Take 1 Jelena HCl 50 MG 2-13 [id number] tablet (50 Seybold oral Tablet 00:00: 3D mg total) - 00 by mouth Externa every 8 l hours as needed. Losartan 2023-0 Yes [id number] 1{tbl} Take 1 K elsey Potassium-H 2-10 tablet by Sey bold CTZ 50-12.5 00:00: mouth - MG oral 00 daily Externa Tablet l Meclizine 2022-0 Yes [id number] 25mg Q.[id number] Take 1 Jelena HCl 25 MG 2-10 [id number] tablet (25 Seybold oral Tablet 00:00: 3D mg total) - 00 by mouth 3 Externa times l daily as needed Propranolol 2022-0 Yes [id number] 10mg Take 1 Jelena HCl 10 MG 2-10 tablet (10 Seyb old oral Tablet 00:00: mg total) - 00 by mouth 3 Externa times l daily Losartan 2022-0 Yes [id number] 1{tbl} Take 1 K elsey Potassium-H 2-10 tablet by Sey bold CTZ 50-12.5 00:00: mouth - MG oral 00 daily Externa Tablet l Meclizine 2022-0 Yes [id number] 25mg Q.[id number] Take 1 Jelena HCl 25 MG 2-10 [id number] tablet (25 Seybold oral Tablet 00:00: 3D mg total) - 00 by mouth 3 Externa times l daily as needed Propranolol 2022-0 Yes [id number] 10mg Take 1 Jelena HCl 10 MG 2-10 tablet (10 Seyb old oral Tablet 00:00: mg total) - 00 by mouth 3 Externa times l daily Doxycycline 2022-0 Yes [id number] 100mg Take 1 Jelena Hyclate 100 -31 tablet Seybol d MG oral 00:00: (100 mg - Tablet 00 total) by Externa mouth 2 l times daily Doxycycline 2022-0 2023- No [id number] 100mg Take 1 Jelena Hyclate 100 -31 02-28 tablet Seybo ld MG oral 00:00: 00:00 (100 mg - Tablet 00 :00 total) by Externa mouth 2 l times daily Trulicity 2022-0 Yes [id number] .75mg Inject Jelena 0.75 1-28 0.75 mg Seybold MG/0.5ML 00:00: into the - subcutaneou 00 skin once Ext jonathan s Solution a week l Pen-injecto r Trulicity 2022- Yes [id number] .75mg Inject Jelena 0.75 -28 0.75 mg Seybold MG/0.5ML 00:00: into the - subcutaneou 00 skin once Ext jonathan s Solution a week l Pen-injecto r Trulicity Yes [id number] .75mg Inject Jelena 0.75 1-28 0.75 mg Seybold MG/0.5ML 00:00: into the - subcutaneou 00 skin once Ext jonathan s Solution a week l Pen-injecto r Trulicity Yes [id number] .75mg Inject Jelena 0.75 1-28 0.75 mg Seybold MG/0.5ML 00:00: into the - subcutaneou 00 skin once Ext jonathan s Solution a week l Pen-injecto r Aripiprazol 2022- No Kelse y e 20 MG 1-25 01-25 Seybold oral Tablet 11:11: 00:00 - 39 :00 Externa l Aripiprazol 2022- No [id number] 10mg Take 10 mg Jelena e 10 MG 1-25 -25 by mouth 2 Seybo ld oral Tablet 11:11: 00:00 times - 26 :00 daily Externa l Trazodone Yes [id number] 100mg Take 100 Jelena HCl 100 MG 1-25 mg by Seybold oral Tablet 10:31: mouth at - 22 bedtime Externa l Cyanocobala Yes Take by Reynold sey min 1-25 mouth Seybold (VITAMIN B 10:31: - 12 OR) 22 Externa l Trazodone Yes [id number] 100mg Take 100 Jelena HCl 100 MG 1-25 mg by Seybold oral Tablet 10:31: mouth at - 22 bedtime Externa l Cyanocobala Yes Take by Reynold sey min 1-25 mouth Seybold (VITAMIN B 10:31: - 12 OR) 22 Externa l hydroCHLORO Yes [id number] 12.5mg Take 1 Jelena thiazide 1-25 capsule Seybold 12.5 MG 00:00: (12.5 mg - oral 00 total) by Externa Capsule mouth l daily Ondansetron Yes [id number] 4mg Q.[id number] Take 1 Jelena (ZOFRAN) 4 1-25 [id number] tablet (4 Seybold MG oral 00:00: 3D mg total) - TABLET 00 by mouth Externa DISPERSIBLE every 8 l hours as needed for nausea Tirzepatide Yes [id number] 2.5mg Inject 0.5 Jelena (Mounjaro) 1-25 mL (2.5 mg Sey bold 2.5 00:00: total) - MG/0.5ML 00 into the Externa subcutaneou skin once l s Solution a week Pen-injecto r Celecoxib 2022-0 Yes [id number] 200mg Take 1 Jelena (CeleBREX) 1-25 capsule Seybol d 200 MG oral 00:00: (200 mg - Capsule 00 total) by Externa mouth 2 l times daily Gabapentin 0 Yes [id number] 100mg Take 1 Jelena 100 MG oral 1-25 capsule Seybo ld Capsule 00:00: (100 mg - 00 total) by Externa mouth 3 l times daily Ondansetron 0 Yes [id number] 4mg Q.[id number] Take 1 Jelena (ZOFRAN) 4 1-25 [id number] tablet (4 Seybold MG oral 00:00: 3D mg total) - TABLET 00 by mouth Externa DISPERSIBLE every 8 l hours as needed for nausea Ondansetron Yes [id number] 4mg Q.[id number] Take 1 Jelena (ZOFRAN) 4 1-25 [id number] tablet (4 Seybold MG oral 00:00: 3D mg total) - TABLET 00 by mouth Externa DISPERSIBLE every 8 l hours as needed for nausea Celecoxib 0 Yes [id number] 200mg Take 1 Jelena (CeleBREX) 1-25 capsule Seybol d 200 MG oral 00:00: (200 mg - Capsule 00 total) by Externa mouth 2 l times daily Gabapentin 2022-0 Yes [id number] 100mg Take 1 Jelena 100 MG oral 1-25 capsule Seybo ld Capsule 00:00: (100 mg - 00 total) by Externa mouth 3 l times daily Ondansetron 0 Yes [id number] 4mg Q.[id number] Take 1 Jelena (ZOFRAN) 4 1-25 [id number] tablet (4 Seybold MG oral 00:00: 3D mg total) - TABLET 00 by mouth Externa DISPERSIBLE every 8 l hours as needed for nausea Celecoxib 3-0 Yes [id number] 200mg Take 1 Jelena (CeleBREX) 1-25 capsule Seybol d 200 MG oral 00:00: (200 mg - Capsule 00 total) by Externa mouth 2 l times daily Gabapentin 2022-0 Yes [id number] 100mg Take 1 Jelena 100 MG oral 1-25 capsule Seybo ld Capsule 00:00: (100 mg - 00 total) by Externa mouth 3 l times daily Ondansetron 2022-0 Yes [id number] 4mg Q.[id number] Take 1 Jelena (ZOFRAN) 4 1-25 [id number] tablet (4 Seybold MG oral 00:00: 3D mg total) - TABLET 00 by mouth Externa DISPERSIBLE every 8 l hours as needed for nausea Gabapentin 2022-0 Yes [id number] 100mg Take 1 Jelena 100 MG oral 1-25 capsule Seybo ld Capsule 00:00: (100 mg - 00 total) by Externa mouth 3 l times daily Ondansetron 2022-0 Yes [id number] 4mg Q.[id number] Take 1 Jelena (ZOFRAN) 4 1-25 [id number] tablet (4 Seybold MG oral 00:00: 3D mg total) - TABLET 00 by mouth Externa DISPERSIBLE every 8 l hours as needed for nausea Gabapentin 3-0 Yes [id number] 100mg Take 1 Jelena 100 MG oral 1-25 capsule Seybo ld Capsule 00:00: (100 mg - 00 total) by Externa mouth 3 l times daily Ondansetron 3-0 Yes [id number] 4mg Q.[id number] Take 1 Jelena (ZOFRAN) 4 1-25 [id number] tablet (4 Seybold MG oral 00:00: 3D mg total) - TABLET 00 by mouth Externa DISPERSIBLE every 8 l hours as needed for nausea Ondansetron 3-0 Yes [id number] 4mg Q.[id number] Take 1 Jelena (ZOFRAN) 4 1-25 [id number] tablet (4 Seybold MG oral 00:00: 3D mg total) - TABLET 00 by mouth Externa DISPERSIBLE every 8 l hours as needed for nausea Ondansetron 2023-0 Yes [id number] 4mg Q.[id number] Take 1 Jelena (ZOFRAN) 4 1-25 [id number] tablet (4 Seybold MG oral 00:00: 3D mg total) - TABLET 00 by mouth Externa DISPERSIBLE every 8 l hours as needed for nausea Ondansetron 2023-0 Yes [id number] 4mg Q.[id number] Take 1 Jelena (ZOFRAN) 4 1-25 [id number] tablet (4 Seybold MG oral 00:00: 3D mg total) - TABLET 00 by mouth Externa DISPERSIBLE every 8 l hours as needed for nausea Ondansetron 2023-0 Yes [id number] 4mg Q.[id number] Take 1 Jelena (ZOFRAN) 4 1-25 [id number] tablet (4 Seybold MG oral 00:00: 3D mg total) - TABLET 00 by mouth Externa DISPERSIBLE every 8 l hours as needed for nausea Ondansetron 3-0 Yes [id number] 4mg Q.[id number] Take 1 Jelena (ZOFRAN) 4 1-25 [id number] tablet (4 Seybold MG oral 00:00: 3D mg total) - TABLET 00 by mouth Externa DISPERSIBLE every 8 l hours as needed for nausea Ondansetron 2023-0 Yes [id number] 4mg Q.[id number] Take 1 Jelena (ZOFRAN) 4 1-25 [id number] tablet (4 Seybold MG oral 00:00: 3D mg total) - TABLET 00 by mouth Externa DISPERSIBLE every 8 l hours as needed for nausea Ondansetron 2023-0 Yes [id number] 4mg Q.[id number] Take 1 Jelena (ZOFRAN) 4 1-25 [id number] tablet (4 Seybold MG oral 00:00: 3D mg total) - TABLET 00 by mouth Externa DISPERSIBLE every 8 l hours as needed for nausea hydroCHLORO 2023-0 3- No [id number] 12.5mg Take 1 Jelena thiazide 1-25 02-10 [...] - s Implant 00 Externa l Docusate 2023-0 Yes [id number] 100mg Take 1 Ke lsey Sodium 1-13 capsule Seybold (Colace) 00:00: (100 mg - 100 MG oral 00 total) by Ext jonathan Capsule mouth l daily Docusate 0 Yes [id number] 100mg Take 1 Ke lsey Sodium 1-13 capsule Seybold (Colace) 00:00: (100 mg - 100 MG oral 00 total) by Ext jonathan Capsule mouth l daily Ferrous 2022-0 Yes [id number] 325mg Take 1 Reynold sey Sulfate 1-13 tablet Seybold (Iron) 325 00:00: (325 mg - (65 Fe) MG 00 total) by Exte rna oral Tablet mouth l daily (with breakfast) Docusate 0 Yes [id number] 100mg Take 1 Ke lsey Sodium 1-13 capsule Seybold (Colace) 00:00: (100 mg - 100 MG oral 00 total) by Ext jonathan Capsule mouth l daily Ferrous 0 Yes [id number] 325mg Take 1 Reynold sey Sulfate 1-13 tablet Seybold (Iron) 325 00:00: (325 mg - (65 Fe) MG 00 total) by Exte rna oral Tablet mouth l daily (with breakfast) Docusate 0 Yes [id number] 100mg Take 1 Ke lsey Sodium 1-13 capsule Seybold (Colace) 00:00: (100 mg - 100 MG oral 00 total) by Ext jonathan Capsule mouth l daily Ferrous 0 Yes [id number] 325mg Take 1 Reynold sey Sulfate 1-13 tablet Seybold (Iron) 325 00:00: (325 mg - (65 Fe) MG 00 total) by Exte rna oral Tablet mouth l daily (with breakfast) Docusate 0 Yes [id number] 100mg Take 1 Ke lsey Sodium 1-13 capsule Seybold (Colace) 00:00: (100 mg - 100 MG oral 00 total) by Ext jonathan Capsule mouth l daily Ferrous 0 Yes [id number] 325mg Take 1 Reynold sey Sulfate 1-13 tablet Seybold (Iron) 325 00:00: (325 mg - (65 Fe) MG 00 total) by Exte rna oral Tablet mouth l daily (with breakfast) Docusate 0 Yes [id number] 100mg Take 1 Ke lsey Sodium 1-13 capsule Seybold (Colace) 00:00: (100 mg - 100 MG oral 00 total) by Ext jonathan Capsule mouth l daily Ferrous 0 Yes [id number] 325mg Take 1 Reynold sey Sulfate 1-13 tablet Seybold (Iron) 325 00:00: (325 mg - (65 Fe) MG 00 total) by Exte rna oral Tablet mouth l daily (with breakfast) Docusate 0 Yes [id number] 100mg Take 1 Ke lsey Sodium 1-13 capsule Seybold (Colace) 00:00: (100 mg - 100 MG oral 00 total) by Ext jonathan Capsule mouth l daily Ferrous 0 Yes [id number] 325mg Take 1 Reynold sey Sulfate 1-13 tablet Seybold (Iron) 325 00:00: (325 mg - (65 Fe) MG 00 total) by Exte rna oral Tablet mouth l daily (with breakfast) Docusate 0 Yes [id number] 100mg Take 1 Ke lsey Sodium 1-13 capsule Seybold (Colace) 00:00: (100 mg - 100 MG oral 00 total) by Ext jonathan Capsule mouth l daily Ferrous 2022-0 Yes [id number] 325mg Take 1 Reynold sey Sulfate 1-13 tablet Seybold (Iron) 325 00:00: (325 mg - (65 Fe) MG 00 total) by Exte rna oral Tablet mouth l daily (with breakfast) Docusate 0 Yes [id number] 100mg Take 1 Ke lsey Sodium 1-13 capsule Seybold (Colace) 00:00: (100 mg - 100 MG oral 00 total) by Ext jonathan Capsule mouth l daily Ferrous 2022-0 Yes [id number] 325mg Take 1 Reynold sey Sulfate 1-13 tablet Seybold (Iron) 325 00:00: (325 mg - (65 Fe) MG 00 total) by Exte rna oral Tablet mouth l daily (with breakfast) Docusate 2022-0 Yes [id number] 100mg Take 1 Ke lsey Sodium 1-13 capsule Sey[facility] (Colace) 00:00: (100 mg - 100 MG oral 00 total) by Ext jonathan Capsule mouth l daily Ferrous 2022-0 Yes [id number] 325mg Take 1 Reynold sey Sulfate 1-13 tablet Seybold (Iron) 325 00:00: (325 mg - (65 Fe) MG 00 total) by Exte rna oral Tablet mouth l daily (with breakfast) Docusate 0 Yes [id number] 100mg Take 1 Ke lsey Sodium 1-13 capsule [facility] (Colace) 00:00: (100 mg - 100 MG oral 00 total) by Ext jonathan Capsule mouth l daily Docusate 2022-0 Yes [id number] 100mg Take 1 Ke [facility] Sodium 1-13 capsule [facility] (Colace) 00:00: (100 mg - 100 MG oral 00 total) by Ext jonathan Capsule mouth l daily Docusate 0 Yes [id number] 100mg Take 1 Ke lsey Sodium 1-13 capsule [facility] (Colace) 00:00: (100 mg - 100 MG oral 00 total) by Ext jonathan Capsule mouth l daily Ferrous 0 Yes [id number] 325mg Take 1 Reynold sey Sulfate 1-13 tablet [facility] (Iron) 325 00:00: (325 mg - (65 Fe) MG 00 total) by Exte rna oral Tablet mouth l daily (with breakfast) Docusate 0 Yes [id number] 100mg Take 1 Ke lsey Sodium 1-13 capsule [facility] (Colace) 00:00: (100 mg - 100 MG oral 00 total) by Ext jonathan Capsule mouth l daily Nitrofurant 2022- No [id number] 100mg Take 1 Jelena oin Monohyd 1-13 [...] Externa l Cyanocobala Yes Take by Reynold woodard min 1-10 mouth [facility] (VITAMIN B [...] 1-11 00:00: 00 LYRICA 150 2019-08 Yes [id number] Take 1 [facility] mg capsule 2-21 capsule by ity of 00:00: mouth [place] 00 twice a Medical day for Branch neuropathi c pain as directed by physician. LYRICA 150 2019-08 Yes [id number] Take 1 [facility] mg capsule 2-21 capsule by ity of 00:00: mouth [place] 00 twice a Medical day for Branch neuropathi c pain as directed by physician. LYRICA 150 2019-08 Yes [id number] Take 1 [facility] mg capsule 2-21 capsule by ity of 00:00: mouth [place] 00 twice a Medical day for Branch neuropathi c pain as directed by physician. LYRICA 150 2019-08 Yes [id number] Take 1 [facility] mg capsule 2-21 capsule by ity of 00:00: mouth [place] 00 twice a Medical day for Branch neuropathi c pain as directed by physician. LYRICA 150 2019-08 Yes [id number] Take 1 [facility] mg capsule 2-21 capsule by ity of 00:00: mouth [place] 00 twice a Medical day for Branch neuropathi c pain as directed by physician. LYRICA 150 2019-08 Yes [id number] Take 1 [facility] mg capsule 2-21 capsule by ity of 00:00: mouth [place] 00 twice a Medical day for Branch neuropathi c pain as directed by physician. LYRICA 150 2019-08 Yes [id number] Take 1 [facility] mg capsule 2-21 capsule by ity of 00:00: mouth [place] 00 twice a Medical day for Branch neuropathi c pain as directed by physician. LYRICA 150 2019- Yes [id number] Take 1 [facility] mg capsule 2-21 capsule [...] 00 :00 times Medical daily. Branch ofloxacin 2019-0 Yes [id number] 5[drp] Place 5 [facility] 0.3 % otic 05-17 [id number] Drops in ity of drops 00:00: both ears [place] 00 3 (three) Medical times Branch daily. ofloxacin 2019-0 Yes [id number] 5[drp] Place 5 [facility] 0.3 % otic 9-17 [id number] Drops in ity of drops 00:00: both ears [place] 00 3 (three) Medical times Branch daily. ofloxacin 2020-0 Yes [id number] 5[drp] Place 5 [facility] 0.3 % otic 9-17 [id number] Drops in ity of drops 00:00: both ears [place] 00 3 (three) Medical times Branch daily. ofloxacin 2020-0 Yes [id number] 5[drp] Place 5 [facility] 0.3 % otic 9-17 [id number] Drops in ity of drops 00:00: both ears [place] 00 3 (three) Medical times Branch daily. ofloxacin 2020-0 Yes [id number] 5[drp] Place 5 [facility] 0.3 % otic 9-17 [id number] Drops in ity of drops 00:00: both ears [place] 00 3 (three) Medical times Branch daily. ofloxacin 2020-0 Yes [id number] 5[drp] Place 5 [facility] 0.3 % otic 9-17 [id number] Drops in ity of drops 00:00: both ears [place] 00 3 (three) Medical times Branch daily. ofloxacin 2020-0 Yes [id number] 5[drp] Place 5 [facility] 0.3 % otic 9-17 [id number] Drops in ity of drops 00:00: both ears [place] 00 3 (three) Medical times Branch daily. ofloxacin 2020-0 Yes [id number] 5[drp] Place 5 [facility] 0.3 % otic 9-17 [id number] Drops in ity of drops 00:00: both ears [place] 00 3 (three) Medical times Branch daily. ofloxacin 2020-0 Yes [id number] 5[drp] Place 5 [facility] 0.3 % otic 9-17 29999 Drops in ity of drops 00:00: both ears [place] 00 3 (three) Medical times Branch daily. ofloxacin 2020-0 Yes [id number] 5[drp] Place 5 [facility] 0.3 % otic 9-17 [id number] Drops in ity of drops 00:00: both ears [place] 00 3 (three) Medical times Branch daily. ofloxacin 2020-0 Yes [id number] 5[drp] Place 5 [facility] 0.3 % otic 9-17 [id number] Drops in ity of drops 00:00: both ears [place] 00 3 (three) Medical times Branch daily. ofloxacin 2020-0 Yes [id number] 5[drp] Place 5 [facility] 0.3 % otic 9-17 [id number] Drops in ity of drops 00:00: both ears [place] 00 3 (three) Medical times Branch daily. ofloxacin 2020-0 Yes [id number] 5[drp] Place 5 [facility] 0.3 % otic 9-17 [id number] Drops in ity of drops 00:00: both ears [place] 00 3 (three) Medical times Branch daily. ofloxacin 2020-0 Yes [id number] 5[drp] Place 5 [facility] 0.3 % otic 9-17 [id number] Drops in ity of drops 00:00: both ears [place] 00 3 (three) Medical times Branch daily. ofloxacin 2020-0 Yes [id number] 5[drp] Place 5 [facility] 0.3 % otic 9-17 [id number] Drops in ity of drops 00:00: both ears [place] 00 3 (three) Medical times Branch daily. ofloxacin 2020-0 Yes [id number] 5[drp] Place 5 [facility] 0.3 % otic 9-17 [id number] Drops in ity of drops 00:00: both [...] 7 days. Indication s: acute pain acetaminoph 2019-0 2020- No [id number] 1{tbl} Take [...] Indication s: acute pain metoprolol 2020-0 Yes [id number] 50mg Take 1 Un nneka succinate 7-09 tablet by ity o f XL 50 mg 24 00:00: mouth [place] hr tablet 00 daily. Medical Branch hydroCHLORO 2020-0 Yes [id number] 25mg Take 1 [facility] thiazide 25 7-09 tablet by ity of mg tablet 00:00: mouth [place] 00 daily. Medical Branch baclofen 10 2020-0 Yes [id number] 10mg Take 1 [facility] mg tablet 7 [id number] tablet by ity of 00:00: mouth 3 [place] 00 (three) Medical times Branch daily as needed for Pain (scale 4-6). metoprolol 2020-0 Yes [id number] 50mg Take 1 Un nneka succinate 7-09 tablet by ity o f XL 50 mg 24 00:00: mouth [place] hr tablet 00 daily. Medical Branch hydroCHLORO 2020-0 Yes [id number] 25mg Take 1 [facility] thiazide 25 7-09 tablet by ity of mg tablet 00:00: mouth [place] 00 daily. Medical Branch baclofen 10 2020-0 Yes [id number] 10mg Take 1 [facility] mg tablet 03-08 [id number] tablet by ity of 00:00: mouth 3 [place] 00 (three) Medical times Branch daily as needed for Pain (scale 4-6). metoprolol 2020-0 Yes [id number] 50mg Take 1 Un nneka succinate 7-09 tablet by ity o f XL 50 mg 24 00:00: mouth [place] hr tablet 00 daily. Medical Branch hydroCHLORO 2020-0 Yes [id number] 25mg Take 1 [facility] thiazide 25 7-09 tablet by ity of mg tablet 00:00: mouth [place] 00 daily. Medical Branch baclofen 10 2020-0 Yes [id number] 10mg Take 1 [facility] mg tablet 7- [id number] tablet by ity of 00:00: mouth 3 [place] 00 (three) Medical times Branch daily as needed for Pain (scale 4-6). metoprolol 2020-0 Yes [id number] 50mg Take 1 Un nneka succinate 7-09 tablet by ity o f XL 50 mg 24 00:00: mouth [place] hr tablet 00 daily. Medical Branch hydroCHLORO 2020-0 Yes [id number] 25mg Take 1 [facility] thiazide 25 7-09 tablet by ity of mg tablet 00:00: mouth [place] 00 daily. Medical Branch baclofen 10 2020-0 Yes [id number] 10mg Take 1 [facility] mg tablet 7- [id number] tablet by ity of 00:00: mouth 3 [place] 00 (three) Medical times Branch daily as needed for Pain (scale 4-6). metoprolol 2020-0 Yes [id number] 50mg Take 1 Un nneka succinate 7-09 tablet by ity o f XL 50 mg 24 00:00: mouth [place] hr tablet 00 daily. Medical Branch hydroCHLORO 2020-0 Yes [id number] 25mg Take 1 [facility] thiazide 25 7-09 tablet by ity of mg tablet 00:00: mouth [place] 00 daily. Medical Branch baclofen 10 2019-0 Yes [id number] 10mg Take 1 [facility] mg tablet 03-08 [id number] tablet by ity of 00:00: mouth 3 [place] 00 (three) Medical times Branch daily as needed for Pain (scale 4-6). metoprolol 2020-0 Yes [id number] 50mg Take 1 Un nneka succinate 7-09 tablet by ity o f XL 50 mg 24 00:00: mouth [place] hr tablet 00 daily. Medical Branch hydroCHLORO 2020-0 Yes [id number] 25mg Take 1 [facility] thiazide 25 7-09 tablet by ity of mg tablet 00:00: mouth [place] 00 daily. Medical Branch baclofen 10 2019-0 Yes [id number] 10mg Take 1 [facility] mg tablet 03-08 [id number] tablet by ity of 00:00: mouth 3 [place] 00 (three) Medical times Branch daily as needed for Pain (scale 4-6). metoprolol 2020-0 Yes [id number] 50mg Take 1 Un nneka succinate 7-09 tablet by ity o f XL 50 mg 24 00:00: mouth [place] hr tablet 00 daily. Medical Branch hydroCHLORO 2020-0 Yes [id number] 25mg Take 1 [facility] thiazide 25 7-09 tablet by ity of mg tablet 00:00: mouth [place] 00 daily. Medical Branch baclofen 10 2020-0 Yes [id number] 10mg Take 1 [facility] mg tablet 03-08 [id number] tablet by ity of 00:00: mouth 3 [place] 00 (three) Medical times Branch daily as needed for Pain (scale 4-6). metoprolol 2020-0 Yes [id number] 50mg Take 1 Un nneka succinate 7-09 tablet by ity o f XL 50 mg 24 00:00: mouth [place] hr tablet 00 daily. Medical Branch hydroCHLORO 2020-0 Yes [id number] 25mg Take 1 [facility] thiazide 25 7-09 tablet by ity of mg tablet 00:00: mouth [place] 00 daily. Medical Branch baclofen 10 2020-0 Yes [id number] 10mg Take 1 [facility] mg tablet 7- [id number] tablet by ity of 00:00: mouth 3 [place] 00 (three) Medical times Branch daily as needed for Pain (scale 4-6). metoprolol 2020-0 Yes [id number] 50mg Take 1 Un nneka succinate 7-09 tablet by ity o f XL 50 mg 24 00:00: mouth [place] hr tablet 00 daily. Medical Branch hydroCHLORO 2020-0 Yes [id number] 25mg Take 1 [facility] thiazide 25 7-09 tablet by ity of mg tablet 00:00: mouth [place] 00 daily. Medical Branch baclofen 10 2020-0 Yes [id number] 10mg Take 1 [facility] mg tablet 7- [id number] tablet by ity of 00:00: mouth 3 [place] 00 (three) Medical times Branch daily as needed for Pain (scale 4-6). metoprolol 2020-0 Yes [id number] 50mg Take 1 Un nneka succinate 7-09 tablet by ity o f XL 50 mg 24 00:00: mouth [place] hr tablet 00 daily. Medical Branch hydroCHLORO 2020-0 Yes [id number] 25mg Take 1 [facility] thiazide 25 7-09 tablet by ity of mg tablet 00:00: mouth [place] 00 daily. Medical Branch baclofen 10 2020-0 Yes [id number] 10mg Take 1 [facility] mg tablet 7- [id number] tablet by ity of 00:00: mouth 3 [place] 00 (three) Medical times Branch daily as needed for Pain (scale 4-6). metoprolol 2020-0 Yes [id number] 50mg Take 1 Un nneka succinate 7-09 tablet by ity o f XL 50 mg 24 00:00: mouth [place] hr tablet 00 daily. Medical Branch hydroCHLORO 2020-0 Yes [id number] 25mg Take 1 [facility] thiazide 25 7-09 tablet by ity of mg tablet 00:00: mouth [place] 00 daily. Medical Branch baclofen 10 2020-0 Yes [id number] 10mg Take 1 [facility] mg tablet 03-08 [id number] tablet by ity of 00:00: mouth 3 [place] 00 (three) Medical times Branch daily as needed for Pain (scale 4-6). metoprolol 2020-0 Yes [id number] 50mg Take 1 Un nneka succinate 7-09 tablet by ity o f XL 50 mg 24 00:00: mouth [place] hr tablet 00 daily. Medical Branch hydroCHLORO 2020-0 Yes [id number] 25mg Take 1 [facility] thiazide 25 7-09 tablet by ity of mg tablet 00:00: mouth [place] 00 daily. Medical Branch baclofen 10 2020-0 Yes [id number] 10mg Take 1 [facility] mg tablet 03-08 [id number] tablet by ity of 00:00: mouth 3 [place] 00 (three) Medical times Branch daily as needed for Pain (scale 4-6). metoprolol 2020-0 Yes [id number] 50mg Take 1 Un nneka succinate 7-09 tablet by ity o f XL 50 mg 24 00:00: mouth [place] hr tablet 00 daily. Medical Branch hydroCHLORO 2020-0 Yes [id number] 25mg Take 1 [facility] thiazide 25 7-09 tablet by ity of mg tablet 00:00: mouth [place] 00 daily. Medical Branch baclofen 10 2019-0 Yes [id number] 10mg Take 1 [facility] mg tablet 03-08 [id number] tablet by ity of 00:00: mouth 3 [place] 00 (three) Medical times Branch daily as needed for Pain (scale 4-6). metoprolol 2020-0 Yes [id number] 50mg Take 1 Un nneka succinate 7-09 tablet by ity o f XL 50 mg 24 00:00: mouth [place] hr tablet 00 daily. Medical Branch hydroCHLORO 2020-0 Yes [id number] 25mg Take 1 [facility] thiazide 25 7-09 tablet by ity of mg tablet 00:00: mouth [place] 00 daily. Medical Branch baclofen 10 2020-0 Yes [id number] 10mg Take 1 [facility] mg tablet 7- [id number] tablet by ity of 00:00: mouth 3 [place] 00 (three) Medical times Branch daily as needed for Pain (scale 4-6). metoprolol 2020-0 Yes [id number] 50mg Take 1 Un nneka succinate 7-09 tablet by ity o f XL 50 mg 24 00:00: mouth [place] hr tablet 00 daily. Medical Branch hydroCHLORO 2020-0 Yes [id number] 25mg Take 1 [facility] thiazide 25 7-09 tablet by ity of mg tablet 00:00: mouth [place] 00 daily. Medical Branch baclofen 10 2020-0 Yes [id number] 10mg Take 1 [facility] mg tablet 7- [id number] tablet by ity of 00:00: mouth 3 [place] 00 (three) Medical times Branch daily as needed for Pain (scale 4-6). metoprolol 2020-0 Yes [id number] 50mg Take 1 Un nneka succinate 7-09 tablet by ity o f XL 50 mg 24 00:00: mouth [place] hr tablet 00 daily. Medical Branch hydroCHLORO 2020-0 Yes [id number] 25mg Take 1 [facility] thiazide 25 7-09 tablet by ity of mg tablet 00:00: mouth [place] 00 daily. Medical Branch baclofen 10 2020-0 Yes [id number] 10mg Take 1 [facility] mg tablet 03-08 [id number] tablet by ity of 00:00: mouth 3 [place] 00 (three) Medical times Branch daily as needed for Pain (scale 4-6). metoprolol 2020-0 Yes [id number] 50mg Take 1 Un nneka succinate 7-09 tablet by ity o f XL 50 mg 24 00:00: mouth [place] hr tablet 00 daily. Medical Branch hydroCHLORO 2020-0 Yes [id number] 25mg Take 1 [facility] thiazide 25 7-09 tablet by ity of mg tablet 00:00: mouth [place] 00 daily. Medical Branch baclofen 10 2020-0 Yes [id number] 10mg Take 1 [facility] mg tablet 03-08 [id number] tablet by ity of 00:00: mouth 3 [place] 00 (three) Medical times Branch daily as needed for Pain (scale 4-6). metoprolol 2020-0 Yes [id number] 50mg Take 1 Un nneka succinate 7-09 tablet by ity o f XL 50 mg 24 00:00: mouth [place] hr tablet 00 daily. Medical Branch hydroCHLORO 2020-0 Yes [id number] 25mg Take 1 [facility] thiazide 25 7-09 tablet by ity of mg tablet 00:00: mouth [place] 00 daily. Medical Branch baclofen 10 2020-0 Yes [id number] 10mg Take 1 [facility] mg tablet 03-08 [id number] tablet by ity of 00:00: mouth 3 [place] 00 (three) Medical times Branch daily as needed for Pain (scale 4-6). metoprolol 2020-0 Yes [id number] 50mg Take 1 Un nneka succinate 7-09 tablet by ity o f XL 50 mg 24 00:00: mouth [place] hr tablet 00 daily. Medical Branch hydroCHLORO 2020-0 Yes [id number] 25mg Take 1 [facility] thiazide 25 7-09 tablet by ity of mg tablet 00:00: mouth [place] 00 daily. Medical Branch baclofen 10 2020-0 Yes [id number] 10mg Take 1 [facility] mg tablet 7- [id number] tablet by ity of 00:00: mouth 3 [place] 00 (three) Medical times Branch daily as needed for Pain (scale 4-6). metoprolol 2020-0 Yes [id number] 50mg Take 1 Un nneka succinate 7-09 tablet by ity o f XL 50 mg 24 00:00: mouth [place] hr tablet 00 daily. Medical Branch hydroCHLORO 2020-0 Yes [id number] 25mg Take 1 [facility] thiazide 25 7-09 tablet by ity of mg tablet 00:00: mouth [place] 00 daily. Medical Branch baclofen 10 2020-0 Yes [id number] 10mg Take 1 [facility] mg tablet 7 [id number] tablet by ity of 00:00: mouth 3 [place] 00 (three) Medical times Branch daily as needed for Pain (scale 4-6). metoprolol 2020-0 Yes [id number] 50mg Take 1 Un nneka succinate 7-09 tablet by ity o f XL 50 mg 24 00:00: mouth [place] hr tablet 00 daily. Medical Branch hydroCHLORO 2020-0 Yes [id number] 25mg Take 1 [facility] thiazide 25 7-09 tablet by ity of mg tablet 00:00: mouth [place] 00 daily. Medical Branch baclofen 10 2020-0 Yes [id number] 10mg Take 1 [facility] mg tablet 7- [id number] tablet by ity of 00:00: mouth 3 [place] 00 (three) Medical times Branch daily as needed for Pain (scale 4-6). metoprolol 2020-0 Yes [id number] 50mg Take 1 Un nneka succinate 7-09 tablet by ity o f XL 50 mg 24 00:00: mouth [place] hr tablet 00 daily. Medical Branch hydroCHLORO 2020-0 Yes [id number] 25mg Take 1 [facility] thiazide 25 7-09 tablet by ity of mg tablet 00:00: mouth [place] 00 daily. Medical Branch baclofen 10 2020-0 Yes [id number] 10mg Take 1 [facility] mg tablet 03-08 [id number] tablet by ity of 00:00: mouth 3 [place] 00 (three) Medical times Branch daily as needed for Pain (scale 4-6). metoprolol 2020-0 Yes [id number] 50mg Take 1 Un nneka succinate 7-09 tablet by ity o f XL 50 mg 24 00:00: mouth [place] hr tablet 00 daily. Medical Branch hydroCHLORO 2020-0 Yes [id number] 25mg Take 1 [facility] thiazide 25 7-09 tablet by ity of mg tablet 00:00: mouth [place] 00 daily. Medical Branch baclofen 10 2020-0 Yes [id number] 10mg Take 1 [facility] mg tablet 03-08 [id number] tablet by ity of 00:00: mouth 3 [place] 00 (three) Medical times Branch daily as needed for Pain (scale 4-6). metoprolol 2020-0 Yes [id number] 50mg Take 1 Un nneka succinate 7-09 tablet by ity o f XL 50 mg 24 00:00: mouth [place] hr tablet 00 daily. Medical Branch hydroCHLORO 2020-0 Yes [id number] 25mg Take 1 [facility] thiazide 25 7-09 tablet by ity of mg tablet 00:00: mouth [place] 00 daily. Medical Branch baclofen 10 2019-0 Yes [id number] 10mg Take 1 [facility] mg tablet 03-08 [id number] tablet by ity of 00:00: mouth 3 [place] 00 (three) Medical times Branch daily as needed for Pain (scale 4-6). metoprolol 2020-0 Yes [id number] 50mg Take 1 Un nneka succinate 7-09 tablet by ity o f XL 50 mg 24 00:00: mouth [place] hr tablet 00 daily. Medical Branch hydroCHLORO 2020-0 Yes [id number] 25mg Take 1 [facility] thiazide 25 7-09 tablet by ity of mg tablet 00:00: mouth [place] 00 daily. Medical Branch baclofen 10 2020-0 Yes [id number] 10mg Take 1 [facility] mg tablet 7- [id number] tablet by ity of 00:00: mouth 3 [place] 00 (three) Medical times Branch daily as needed for Pain (scale 4-6). metoprolol 2020-0 Yes [id number] 50mg Take 1 Un nneka succinate 7-09 tablet by ity o f XL 50 mg 24 00:00: mouth [place] hr tablet 00 daily. Medical Branch hydroCHLORO 2020-0 Yes [id number] 25mg Take 1 [facility] thiazide 25 03-08 tablet by ity of mg tablet 00:00: mouth [place] 00 daily. Medical Branch baclofen 10 2020-0 Yes [id number] 10mg Take 1 [facility] mg tablet 03-08 [id number] tablet by ity of 00:00: mouth 3 [place] 00 (three) Medical times Branch daily as needed for Pain (scale 4-6). DULOXETINE 2020-0 Yes 60mg Take 60 mg U nivers HCL 2-25 by mouth 3 ity of (CYMBALTA 14:58: (three) [place] ORAL) 32 times Medical daily. Branch VITAMIN B 2020-0 Yes Take by Unive rs COMPLEX 2-25 mouth. ity of ORAL 14:58: [address] Branch traZODONE 2020-0 Yes 100mg Take 100 [facility] vers 100 mg 2-25 mg by ity of tablet 14:58: mouth at [place] [address] bedtime. Medical Branch benztropine 2020-0 Yes 1mg Take 1 mg U nivers 1 mg tablet 2-25 by mouth ity of 14:58: daily. [address] Branch DULOXETINE 2020-0 Yes 60mg Take 60 mg U nivers HCL 2-25 by mouth 3 ity of (CYMBALTA 14:58: (three) [place] ORAL) 32 times Medical daily. Branch VITAMIN B 2020-0 Yes Take by Unive rs COMPLEX 2-25 mouth. ity of ORAL 14:58: [address] Branch traZODONE 2020-0 Yes 100mg Take 100 [facility] vers 100 mg 2-25 mg by ity of tablet 14:58: mouth at [place] [address] bedtime. Medical Branch benztropine 2020-0 Yes 1mg Take 1 mg U nivers 1 mg tablet 2-25 by mouth ity of 14:58: daily. [address] Branch DULOXETINE 2020-0 Yes 60mg Take 60 mg U nivers HCL 2-25 by mouth 3 ity of (CYMBALTA 14:58: (three) [place] ORAL) 32 times Medical daily. Branch VITAMIN B 2020-0 Yes Take by Unive rs COMPLEX 2-25 mouth. ity of ORAL 14:58: [place] [address] Medical Branch traZODONE 2020-0 Yes 100mg Take 100 [facility] vers 100 mg 2-25 mg by ity of tablet 14:58: mouth at [place] [address] bedtime. Medical Branch benztropine 2020-0 Yes 1mg Take 1 mg U nivers 1 mg tablet 2-25 by mouth ity of 14:58: daily. [place] [address] Medical Branch DULOXETINE 2020-0 Yes 60mg Take 60 mg U nivers HCL 2-25 by mouth 3 ity of (CYMBALTA 14:58: (three) [place] ORAL) 32 times Medical daily. Branch VITAMIN B 2020-0 Yes Take by Unive rs COMPLEX 2-25 mouth. ity of ORAL 14:58: [place] [address] Medical Branch traZODONE 2020-0 Yes 100mg Take 100 [facility] vers 100 mg 2-25 mg by ity of tablet 14:58: mouth at [place] [address] bedtime. Medical Branch benztropine 2020-0 Yes 1mg Take 1 mg U nivers 1 mg tablet 2-25 by mouth ity of 14:58: daily. [place] [address] Medical Branch DULOXETINE 2020-0 Yes 60mg Take 60 mg U nivers HCL 2-25 by mouth 3 ity of (CYMBALTA 14:58: (three) [place] ORAL) 32 times Medical daily. Branch VITAMIN B 2020-0 Yes Take by Unive rs COMPLEX 2-25 mouth. ity of ORAL 14:58: [place] [address] Medical Branch traZODONE 2020-0 Yes 100mg Take 100 [facility] vers 100 mg 2-25 mg by ity of tablet 14:58: mouth at [place] [address] bedtime. Medical Branch benztropine 2020-0 Yes 1mg Take 1 mg U nivers 1 mg tablet 2-25 by mouth ity of 14:58: daily. [place] [address] Medical Branch DULOXETINE 2020-0 Yes 60mg Take 60 mg U nivers HCL 2-25 by mouth 3 ity of (CYMBALTA 14:58: (three) [place] ORAL) 32 times Medical daily. Branch VITAMIN B 2020-0 Yes Take by Unive rs COMPLEX 2-25 mouth. ity of ORAL 14:58: [place] [address] Medical Branch traZODONE 2020-0 Yes 100mg Take 100 [facility] vers 100 mg 2-25 mg by ity of tablet 14:58: mouth at [place] [address] bedtime. Medical Branch benztropine 2020-0 Yes 1mg Take 1 mg U nivers 1 mg tablet 2-25 by mouth ity of 14:58: daily. [place] [address] Medical Branch DULOXETINE 2020-0 Yes 60mg Take 60 mg U nivers HCL 2-25 by mouth 3 ity of (CYMBALTA 14:58: (three) [place] ORAL) 32 times Medical daily. Branch VITAMIN B 2020-0 Yes Take by Unive rs COMPLEX 2-25 mouth. ity of ORAL 14:58: [place] [address] Medical Branch traZODONE 2020-0 Yes 100mg Take 100 [facility] vers 100 mg 2-25 mg by ity of tablet 14:58: mouth at [place] [address] bedtime. Medical Branch benztropine 2020-0 Yes 1mg Take 1 mg U nivers 1 mg tablet 2-25 by mouth ity of 14:58: daily. [place] [address] Medical Branch DULOXETINE 2020-0 Yes 60mg Take 60 mg U nivers HCL 2-25 by mouth 3 ity of (CYMBALTA 14:58: (three) [place] ORAL) 32 times Medical daily. Branch VITAMIN B 2020-0 Yes Take by Unive rs COMPLEX 2-25 mouth. ity of ORAL 14:58: [place] [address] Medical Branch traZODONE 2020-0 Yes 100mg Take 100 [facility] vers 100 mg 2-25 mg by ity of tablet 14:58: mouth at [place] [address] bedtime. Medical Branch benztropine 2020-0 Yes 1mg Take 1 mg U nivers 1 mg tablet 2-25 by mouth ity of 14:58: daily. [place] [address] Medical Branch DULOXETINE 2020-0 Yes 60mg Take 60 mg U nivers HCL 2-25 by mouth 3 ity of (CYMBALTA 14:58: (three) [place] ORAL) 32 times Medical daily. Branch VITAMIN B 2020-0 Yes Take by Unive rs COMPLEX 2-25 mouth. ity of ORAL 14:58: [place] [address] Medical Branch traZODONE 2020-0 Yes 100mg Take 100 [facility] vers 100 mg 2-25 mg by ity of tablet 14:58: mouth at [place] [address] bedtime. Medical Branch benztropine 2020-0 Yes 1mg Take 1 mg U nivers 1 mg tablet 2-25 by mouth ity of 14:58: daily. [place] [address] Medical Branch DULOXETINE 2020-0 Yes 60mg Take 60 mg U nivers HCL 2-25 by mouth 3 ity of (CYMBALTA 14:58: (three) [place] ORAL) 32 times Medical daily. Branch VITAMIN B 2020-0 Yes Take by Unive rs COMPLEX 2-25 mouth. ity of ORAL 14:58: [place] [address] Medical Branch traZODONE 2020-0 Yes 100mg Take 100 [facility] vers 100 mg 2-25 mg by ity of tablet 14:58: mouth at [place] [address] bedtime. Medical Branch benztropine 2020-0 Yes 1mg Take 1 mg U nivers 1 mg tablet 2-25 by mouth ity of 14:58: daily. [place] [address] Medical Branch DULOXETINE 2020-0 Yes 60mg Take 60 mg U nivers HCL 2-25 by mouth 3 ity of (CYMBALTA 14:58: (three) [place] ORAL) 32 times Medical daily. Branch VITAMIN B 2020-0 Yes Take by Unive rs COMPLEX 2-25 mouth. ity of ORAL 14:58: [place] [address] Medical Branch traZODONE 2020-0 Yes 100mg Take 100 [facility] vers 100 mg 2-25 mg by ity of tablet 14:58: mouth at [place] [address] bedtime. Medical Branch benztropine 2020-0 Yes 1mg Take 1 mg U nivers 1 mg tablet 2-25 by mouth ity of 14:58: daily. [place] [address] Medical Branch DULOXETINE 2020-0 Yes 60mg Take 60 mg U nivers HCL 2-25 by mouth 3 ity of (CYMBALTA 14:58: (three) [place] ORAL) 32 times Medical daily. Branch VITAMIN B 2020-0 Yes Take by Unive rs COMPLEX 2-25 mouth. ity of ORAL 14:58: [place] [address] Medical Branch traZODONE 2020-0 Yes 100mg Take 100 [facility] vers 100 mg 2-25 mg by ity of tablet 14:58: mouth at [place] [address] bedtime. Medical Branch benztropine 2020-0 Yes 1mg Take 1 mg U nivers 1 mg tablet 2-25 by mouth ity of 14:58: daily. [place] [address] Medical Branch DULOXETINE 2020-0 Yes 60mg Take 60 mg U nivers HCL 2-25 by mouth 3 ity of (CYMBALTA 14:58: (three) [place] ORAL) 32 times Medical daily. Branch VITAMIN B 2020-0 Yes Take by Unive rs COMPLEX 2-25 mouth. ity of ORAL 14:58: [place] [address] [facility] Branch traZODONE 2020-0 Yes 100mg Take 100 Uni vers 100 mg 2-25 mg by ity of tablet 14:58: mouth at [place] [address] bedtime. Medical Branch benztropine 2020-0 Yes 1mg Take 1 mg U nivers 1 mg tablet 2-25 by mouth ity of 14:58: daily. [place] [address] Medical Branch DULOXETINE 2020-0 Yes 60mg Take 60 mg U nivers HCL 2-25 by mouth 3 ity of (CYMBALTA 14:58: (three) [place] ORAL) 32 times Medical daily. Branch VITAMIN B 2020-0 Yes Take by Unive rs COMPLEX 2-25 mouth. ity of ORAL 14:58: [place] [address] [facility] Branch traZODONE 2020-0 Yes 100mg Take 100 Uni vers 100 mg 2-25 mg by ity of tablet 14:58: mouth at [place] [address] bedtime. Medical Branch benztropine 2020-0 Yes 1mg Take 1 mg U nivers 1 mg tablet 2-25 by mouth ity of 14:58: daily. [place] [address] [facility] Branch DULOXETINE 2020-0 Yes 60mg Take 60 mg U nivers HCL 2-25 by mouth 3 ity of (CYMBALTA 14:58: (three) [place] ORAL) 32 times Medical daily. Branch VITAMIN B 2020-0 Yes Take by Un[facility] rs COMPLEX 2-25 mouth. ity of ORAL 14:58: [place] [address] [facility] Branch traZODONE 2020-0 Yes 100mg Take 100 Uni vers 100 mg 2-25 mg by ity of tablet 14:58: mouth at [place] [address] bedtime. Medical Branch benztropine 2020-0 Yes 1mg Take 1 mg U nivers 1 mg tablet 2-25 by mouth ity of 14:58: daily. [place] [address] [facility] Branch DULOXETINE 2020-0 Yes 60mg Take 60 mg U nivers HCL 2-25 by mouth 3 ity of (CYMBALTA 14:58: (three) [place] ORAL) 32 times Medical daily. Branch VITAMIN B 2020-0 Yes Take by Unive rs COMPLEX 2-25 mouth. ity of ORAL 14:58: [place] [address] [facility] Branch traZODONE 2020-0 Yes 100mg Take 100 Uni vers 100 mg 2-25 mg by ity of tablet 14:58: mouth at [place] [address] bedtime. Medical Branch benztropine 2020-0 Yes 1mg Take 1 mg U nivers 1 mg tablet 2-25 by mouth ity of 14:58: daily. [place] [address] [facility] Branch DULOXETINE 2020-0 Yes 60mg Take 60 mg U nivers HCL 2-25 by mouth 3 ity of (CYMBALTA 14:58: (three) [place] ORAL) 32 times Medical daily. Branch VITAMIN B 2020-0 Yes Take by Unive rs COMPLEX 2-25 mouth. ity of ORAL 14:58: [address] traZODONE 2020-0 Yes 100mg Take 100 Uni vers 100 mg 2-25 mg by ity of tablet 14:58: mouth at [place] [address] bedtime. Medical Branch benztropine 2020-0 Yes 1mg Take 1 mg U nivers 1 mg tablet 2-25 by mouth ity of 14:58: daily. [address] VITAMIN B 2020-0 Yes Take by Unive rs COMPLEX 2-25 mouth. ity of ORAL 14:58: [address] traZODONE 2020-0 Yes 100mg Take 100 Uni vers 100 mg 2-25 mg by ity of tablet 14:58: mouth at [place] [address] bedtime. Medical Branch benztropine 2020-0 Yes 1mg Take 1 mg U nivers 1 mg tablet 2-25 by mouth ity of 14:58: daily. [address] VITAMIN B 2020-0 Yes Take by Unive rs COMPLEX 2-25 mouth. ity of ORAL 14:58: [address] traZODONE 2020-0 Yes 100mg Take 100 Uni vers 100 mg 2-25 mg by ity of tablet 14:58: mouth at [place] [address] bedtime. Medical Branch benztropine 2020-0 Yes 1mg Take 1 mg U nivers 1 mg tablet 2-25 by mouth ity of 14:58: daily. [address] VITAMIN B 2020-0 Yes Take by Un[facility] rs COMPLEX 2-25 mouth. ity of ORAL 14:58: [address] traZODONE 2020-0 Yes 100mg Take 100 Uni vers 100 mg 2-25 mg by ity of tablet 14:58: mouth at [place] [address] bedtime. Medical Branch benztropine 2020-0 Yes 1mg Take 1 mg U nivers 1 mg tablet 2-25 by mouth ity of 14:58: daily. [address] VITAMIN B 2020-0 Yes Take by Un[facility] rs COMPLEX 2-25 mouth. ity of ORAL 14:58: [address] traZODONE 2020-0 Yes 100mg Take 100 Uni vers 100 mg 2-25 mg by ity of tablet 14:58: mouth at [place] [address] bedtime. Medical Branch benztropine 2020-0 Yes 1mg Take 1 mg U nivers 1 mg tablet 2-25 by mouth ity of 14:58: daily. [address] Branch VITAMIN B 2020-0 Yes Take by Unive rs COMPLEX 2-25 mouth. ity of ORAL 14:58: [address] traZODONE 2020-0 Yes 100mg Take 100 Uni vers 100 mg 2-25 mg by ity of tablet 14:58: mouth at [place] [address] bedtime. Medical Branch benztropine 2020-0 Yes 1mg Take 1 mg U nivers 1 mg tablet 2-25 by mouth ity of 14:58: daily. [address] VITAMIN B 2020-0 Yes Take by Unive rs COMPLEX 2-25 mouth. ity of ORAL 14:58: [address] traZODONE 2020-0 Yes 100mg Take 100 Uni vers 100 mg 2-25 mg by ity of tablet 14:58: mouth at [place] [address] bedtime. Medical Branch benztropine 2020-0 Yes 1mg Take 1 mg U nivers 1 mg tablet 2-25 by mouth ity of 14:58: daily. [address] VITAMIN B 2020-0 Yes Take by Un[facility] rs COMPLEX 2-25 mouth. ity of ORAL 14:58: [address] traZODONE 2020-0 Yes 100mg Take 100 Uni vers 100 mg 2-25 mg by ity of tablet 14:58: mouth at [place] [address] bedtime. Medical Branch benztropine 2020-0 Yes 1mg Take 1 mg U nivers 1 mg tablet 2-25 by mouth ity of 14:58: daily. [address] VITAMIN B 2020-0 Yes Take by Unive rs COMPLEX 2-25 mouth. ity of ORAL 14:58: [address] traZODONE 2020-0 Yes 100mg Take 100 Uni vers 100 mg 2-25 mg by ity of tablet 14:58: mouth at [place] [address] bedtime. Medical Branch benztropine 2020-0 Yes 1mg Take 1 mg U nivers 1 mg tablet 2-25 by mouth ity of 14:58: daily. [address] VITAMIN B 2020-0 Yes Take by Unive rs COMPLEX 2-25 mouth. ity of ORAL 14:58: [address] traZODONE 2020-0 Yes 100mg Take 100 Uni vers 100 mg 2-25 mg by ity of tablet 14:58: mouth at [place] [address] bedtime. Medical Branch benztropine 2020-0 Yes 1mg Take 1 mg U nivers 1 mg tablet 2-25 by mouth ity of 14:58: daily. [address] VITAMIN B 2020-0 Yes Take by Un[facility] rs COMPLEX 2-25 mouth. ity of ORAL 14:58: [address] traZODONE 2020-0 Yes 100mg Take 100 Uni vers 100 mg 2-25 mg by ity of tablet 14:58: mouth at [place] [address] bedtime. Medical Branch benztropine 2020-0 Yes 1mg Take 1 mg U nivers 1 mg tablet 2-25 by mouth ity of 14:58: daily. [address] VITAMIN B 2020-0 Yes Take by Unive rs COMPLEX 2-25 mouth. ity of ORAL 14:58: [address] traZODONE 2020-0 Yes 100mg Take 100 [facility] vers 100 mg 2-25 mg by ity of tablet 14:58: mouth at [place] [address] bedtime. Medical Branch benztropine 2020-0 Yes 1mg Take 1 mg U nivers 1 mg tablet 2-25 by mouth ity of 14:58: daily. [address] VITAMIN B 2020-0 Yes Take by Unive rs COMPLEX 2-25 mouth. ity of ORAL 14:58: [address] traZODONE 2020-0 Yes 100mg Take 100 Uni vers 100 mg 2-25 mg by ity of tablet 14:58: mouth at [place] [address] bedtime. Medical Branch benztropine 2020-0 Yes 1mg Take 1 mg U nivers 1 mg tablet 2-25 by mouth ity of 14:58: daily. [address] VITAMIN B 2020-0 Yes Take by Un[facility] rs COMPLEX 2-25 mouth. ity of ORAL 14:58: [address] traZODONE 2020-0 Yes 100mg Take 100 Uni vers 100 mg 2-25 mg by ity of tablet 14:58: mouth at [place] [address] bedtime. Medical Branch benztropine 2020-0 Yes 1mg Take 1 mg U nivers 1 mg tablet 2-25 by mouth ity of 14:58: daily. [place] 32 [facility] VITAMIN B 2020-0 Yes Take by Unive rs COMPLEX 2-25 mouth. ity of ORAL 14:58: [place] [address] [facility] Branch traZODONE 2020-0 Yes 100mg Take 100 Uni vers 100 mg 2-25 mg by ity of tablet 14:58: mouth at [place] [address] bedtime. Medical Branch benztropine 2020-0 Yes 1mg Take 1 mg U nivers 1 mg tablet 2-25 by mouth ity of 14:58: daily. [address] Branch VITAMIN B 2020-0 Yes Take by Unive rs COMPLEX 2-25 mouth. ity of ORAL 14:58: [address] Branch traZODONE 2020-0 Yes 100mg Take 100 Uni vers 100 mg 2-25 mg by ity of tablet 14:58: mouth at [place] [address] bedtime. Medical Branch benztropine 2020-0 Yes 1mg Take 1 mg U nivers 1 mg tablet 2-25 by mouth ity of 14:58: daily. [address] aripiprazol 2020-0 Yes 5mg Take 5 [...] (two) [place] 06 times Medical daily. Branch VITAMIN B 2020-0 Yes Take by Unive rs COMPLEX 2-25 mouth. ity of ORAL 08:58: [place] [address] [facility] Branch traZODONE 2020-0 Yes 100mg Take 100 Uni vers 100 mg 2-25 mg by ity of tablet 08:58: mouth at [place] [address] bedtime. Medical Branch benztropine 2020-0 Yes 1mg Take 1 mg U nivers 1 mg tablet 2-25 by mouth ity of 08:58: daily. [place] [address] [facility] Branch ARIPiprazol 2020-0 Yes 10mg Take 10 mg [facility] e 10 mg 2-25 by mouth 2 ity of tablet 08:58: (two) [place] 06 times Medical daily. Branch aripiprazol 2020-0 Yes 5mg Take 5 mg U nivers e (ABILIFY 2-24 by mouth 2 ity of ORAL) 17:16: (two) [place] 05 times Medical daily. Branch benztropine 2020-0 Yes 1mg Take 1 mg U nivers 1 mg tablet 2-24 by mouth ity of 17:16: daily. [place] [address] Medical Branch ARIPiprazol 2020-0 Yes 10mg Take [...] 2-24 by mouth ity of 17:16: daily. [place] [address] Medical Branch ARIPiprazol 2020-0 Yes 10mg Take 10 mg [facility] e 10 mg 2-24 by mouth 2 ity of tablet 17:16: (two) [place] 05 times Medical daily. Branch aripiprazol 2020-0 Yes 5mg Take 5 mg U nivers e (ABILIFY 2-24 by mouth 2 ity of ORAL) 17:16: (two) [place] 05 times Medical daily. Branch benztropine 2020-0 Yes 1mg Take 1 mg U nivers 1 mg tablet 2-24 by mouth ity of 17:16: daily. [place] [address] Medical Branch ARIPiprazol 2020-0 Yes 10mg Take [...] COMPLEX 2-24 mouth. ity of ORAL 17:15: [place] [address] Medical Branch traZODONE 2020-0 Yes 100mg Take 100 Uni vers 100 mg 2-24 mg by ity of tablet 17:15: mouth at [place] [address] bedtime. Medical Branch DULOXETINE 2020-0 Yes 60mg Take 60 mg U nivers HCL 2-24 by mouth 3 ity of (CYMBALTA 17:15: (three) [place] ORAL) 45 times Medical daily. Branch VITAMIN B 2020-0 Yes Take by Unive rs COMPLEX 2-24 mouth. ity of ORAL 17:15: [place] [address] [facility] Branch traZODONE 2020-0 Yes 100mg Take 100 Uni vers 100 mg 2-24 mg by ity of tablet 17:15: mouth at [place] [address] bedtime. Medical Branch DULOXETINE 2020-0 Yes 60mg Take 60 mg U nivers HCL 2-24 by mouth 3 ity of (CYMBALTA 17:15: (three) [place] ORAL) 45 times Medical daily. Branch VITAMIN B 2020-0 Yes Take by Unive rs COMPLEX 2-24 mouth. ity of ORAL 17:15: [place] [address] [facility] Branch traZODONE 2020-0 Yes 100mg Take 100 Uni vers 100 mg 2-24 mg by ity of tablet 17:15: mouth at [place] [address] bedtime. Medical Branch OLANZapine 2020-0 2020- No 20mg Take 20 mg [facility] 20 mg 2-24 02-24 by mouth ity of tablet 17:15: 00:00 at [place] 35 :00 bedtime. Medical Branch OLANZapine 2020-0 2020- No 20mg Take 20 mg [facility] 20 mg 2-24 -24 by mouth ity of tablet 17:15: 00:00 at [place] 35 :00 bedtime. Medical Branch OLANZapine 2020-0 2020- No 20mg Take 20 mg [facility] 20 mg 2-24 02-24 by mouth ity of tablet 17:15: 00:00 at [place] 35 :00 bedtime. Medical Branch OLANZapine 2020-0 2020- No 10mg Take 10 mg [facility] (ZYPREXA) 2-24 02-24 by mouth 2 ity of 10 mg 17:15: 00:00 (two) [place] tablet 26 :00 times Medical daily. Branch OLANZapine 2020-0 2020- No 10mg Take 10 mg [facility] (ZYPREXA) 2-24 02-24 by mouth 2 ity of 10 mg 17:15: 00:00 (two) [place] tablet 26 :00 times Medical daily. Branch OLANZapine 2020-0 2020- No 10mg Take 10 mg [facility] (ZYPREXA) 2-24 02-24 by mouth 2 ity of 10 mg 17:15: 00:00 (two) [place] tablet 26 :00 times Medical daily. Branch DULoxetine 2019-0 2019- No Take 3 [...] :00 daily. Medical Branch metoprolol 2020-0 Yes [id number] 50mg Take 1 Un nneka succinate 2-24 tablet by ity o f XL 50 mg 24 00:00: mouth [place] hr tablet 00 daily. Medical Branch metoprolol 2019-0 Yes [id number] 50mg Take 1 Un nneka succinate 2-24 tablet by ity o f XL 50 mg 24 00:00: mouth [place] hr tablet 00 daily. Medical Branch metoprolol 2020-0 Yes [id number] 50mg Take 1 Un nneka succinate 2-24 tablet by ity o f XL 50 mg 24 00:00: mouth [place] hr tablet 00 daily. Medical Branch metoprolol 2020-0 Yes [id number] 50mg Take 1 Un nneka succinate 2-24 tablet by ity o f XL 50 mg 24 00:00: mouth [place] hr tablet 00 daily. Medical Branch metoprolol 2020-0 Yes [id number] 50mg Take 1 Un nneka succinate 2-24 tablet by ity o f XL 50 mg 24 00:00: mouth [place] hr tablet 00 daily. Medical Branch metoprolol 2020-0 Yes [id number] 50mg Take 1 Un nneka succinate 2-24 tablet by ity o f XL 50 mg 24 00:00: mouth [place] hr tablet 00 daily. Medical Branch metoprolol 2020-0 Yes [id number] 50mg Take 1 Un nneka succinate 2-24 tablet by ity o f XL 50 mg 24 00:00: mouth [place] hr tablet 00 daily. Medical Branch metoprolol 2020-0 Yes [id number] 50mg Take 1 Un nneka succinate 2-24 tablet by ity o f XL 50 mg 24 00:00: mouth [place] hr tablet 00 daily. Medical Branch metoprolol 2020-0 Yes [id number] 50mg Take 1 Un nneka succinate 2-24 tablet by ity o f XL 50 mg 24 00:00: mouth [place] hr tablet 00 daily. Medical Branch metoprolol 2020-0 Yes [id number] 50mg Take 1 Un nneka succinate 2-24 tablet by ity o f XL 50 mg 24 00:00: mouth [place] hr tablet 00 daily. Medical Branch metoprolol 2019-0 2020- No [id number] 50mg Take 1 U nivers succinate 2-24 07-09 tablet by ity of XL 50 mg 24 00:00: 00:00 mouth [place] hr tablet 00 :00 daily. [facility] metoprolol 2019-0 2020- No [id number] 50mg Take 1 U nivers succinate 2-24 07-09 tablet by ity of XL 50 mg 24 00:00: 00:00 mouth [place] hr tablet 00 :00 daily. [facility] metoprolol 2019-0 2020- No [id number] 50mg Take 1 U nivers succinate 2-24 07-09 tablet by ity of XL 50 mg 24 00:00: 00:00 mouth [place] hr tablet 00 :00 daily. [facility] metoprolol 2019-0 2020- No [id number] 50mg Take 1 U nivers succinate 2-24 07-09 tablet by ity of XL 50 mg 24 00:00: 00:00 mouth [place] hr tablet 00 :00 daily. [facility] hydroCHLORO 2020-0 Yes [id number] 25mg Take 1 [facility] thiazide 25 1-30 tablet by ity of mg tablet 00:00: mouth [place] 00 daily. Medical Branch meloxicam 2019-0 Yes [id number] 15mg Take 1 U nivers 15 mg 1-30 tablet by ity of tablet 00:00: mouth [place] 00 daily. Medical Branch metoprolol 2019-0 Yes [id number] 25mg Take 1 Un nneka succinate 1-30 tablet by ity o f XL 25 mg 24 00:00: mouth [place] hr tablet 00 daily. Medical Branch pregabalin 2020-0 Yes [id number] 150mg Take 1 Univers (LYRICA) 1-30 capsule by ity o f 150 mg 00:00: mouth 2 [place] capsule 00 (two) Medical times Branch daily. hydroCHLORO 2020-0 Yes [id number] 25mg Take 1 [facility] thiazide 25 1-30 tablet by ity of mg tablet 00:00: mouth [place] 00 daily. Medical Branch meloxicam 2020-0 Yes [id number] 15mg Take 1 U nivers 15 mg 1-30 tablet by ity of tablet 00:00: mouth [place] 00 daily. Medical Branch metoprolol 2020-0 Yes [id number] 25mg Take 1 Un nneka succinate 1-30 tablet by ity o f XL 25 mg 24 00:00: mouth [place] hr tablet 00 daily. Medical Branch pregabalin 2020-0 Yes [id number] 150mg Take 1 Univers (LYRICA) 1-30 capsule by ity o f 150 mg 00:00: mouth 2 [place] capsule 00 (two) Medical times Branch daily. hydroCHLORO 2020-0 Yes [id number] 25mg Take 1 [facility] thiazide 25 1-30 tablet by ity of mg tablet 00:00: mouth [place] 00 daily. Medical Branch meloxicam 2020-0 Yes [id number] 15mg Take 1 U nivers 15 mg 1-30 tablet by ity of tablet 00:00: mouth [place] 00 daily. Medical Branch pregabalin 2020-0 Yes [id number] 150mg Take 1 Univers (LYRICA) 1-30 capsule by ity o f 150 mg 00:00: mouth 2 [place] capsule 00 (two) Medical times Branch daily. hydroCHLORO 2020-0 Yes [id number] 25mg Take 1 [facility] thiazide 25 1-30 tablet by ity of mg tablet 00:00: mouth [place] 00 daily. Medical Branch meloxicam 2020-0 Yes [id number] 15mg Take 1 U nivers 15 mg 1-30 tablet by ity of tablet 00:00: mouth [place] 00 daily. Medical Branch pregabalin 2020-0 Yes [id number] 150mg Take 1 Univers (LYRICA) 1-30 capsule by ity o f 150 mg 00:00: mouth 2 [place] capsule 00 (two) Medical times Branch daily. hydroCHLORO 2020-0 Yes [id number] 25mg Take 1 [facility] thiazide 25 1-30 tablet by ity of mg tablet 00:00: mouth [place] 00 daily. Medical Branch meloxicam 2020-0 Yes [id number] 15mg Take 1 U nivers 15 mg 1-30 tablet by ity of tablet 00:00: mouth [place] 00 daily. Medical Branch pregabalin 2020-0 Yes [id number] 150mg Take 1 Univers (LYRICA) 1-30 capsule by ity o f 150 mg 00:00: mouth 2 [place] capsule 00 (two) Medical times Branch daily. hydroCHLORO 2020-0 Yes [id number] 25mg Take 1 [facility] thiazide 25 1-30 tablet by ity of mg tablet 00:00: mouth [place] 00 daily. Medical Branch meloxicam 2020-0 Yes [id number] 15mg Take 1 U nivers 15 mg 1-30 tablet by ity of tablet 00:00: mouth [place] 00 daily. Medical Branch pregabalin 2020-0 Yes [id number] 150mg Take 1 [facility] (LYRICA) 1-30 capsule by ity o f 150 mg 00:00: mouth 2 [place] capsule 00 (two) Medical times Branch daily. hydroCHLORO 2020-0 Yes [id number] 25mg Take 1 [facility] thiazide 25 1-30 tablet by ity of mg tablet 00:00: mouth [place] 00 daily. Medical Branch meloxicam 2020-0 Yes [id number] 15mg Take 1 U nivers 15 mg 1-30 tablet by ity of tablet 00:00: mouth [place] 00 daily. Medical Branch pregabalin 2020-0 Yes [id number] 150mg Take 1 [facility] (LYRICA) 1-30 capsule by ity o f 150 mg 00:00: mouth 2 [place] capsule 00 (two) Medical times Branch daily. hydroCHLORO 2020-0 Yes [id number] 25mg Take 1 [facility] thiazide 25 1-30 tablet by ity of mg tablet 00:00: mouth [place] 00 daily. Medical Branch meloxicam 2020-0 Yes [id number] 15mg Take 1 U nivers 15 mg 1-30 tablet by ity of tablet 00:00: mouth [place] 00 daily. Medical Branch pregabalin 2020-0 Yes [id number] 150mg Take 1 [facility] (LYRICA) 1-30 capsule by ity o f 150 mg 00:00: mouth 2 [place] capsule 00 (two) Medical times Branch daily. hydroCHLORO 2020-0 Yes [id number] 25mg Take 1 [facility] thiazide 25 1-30 tablet by ity of mg tablet 00:00: mouth [place] 00 daily. Medical Branch meloxicam 2020-0 Yes [id number] 15mg Take 1 U nivers 15 mg 1-30 tablet by ity of tablet 00:00: mouth [place] 00 daily. Medical Branch pregabalin 2020-0 Yes [id number] 150mg Take 1 [facility] (LYRICA) 1-30 capsule by ity o f 150 mg 00:00: mouth 2 [place] capsule 00 (two) Medical times Branch daily. hydroCHLORO 2020-0 Yes [id number] 25mg Take 1 [facility] thiazide 25 1-30 tablet by ity of mg tablet 00:00: mouth [place] 00 daily. Medical Branch meloxicam 2020-0 Yes [id number] 15mg Take 1 U nivers 15 mg 1-30 tablet by ity of tablet 00:00: mouth [place] 00 daily. Medical Branch pregabalin 2020-0 Yes [id number] 150mg Take 1 [facility] (LYRICA) 1-30 capsule by ity o f 150 mg 00:00: mouth 2 [place] capsule 00 (two) Medical times Branch daily. hydroCHLORO 2020-0 Yes [id number] 25mg Take 1 [facility] thiazide 25 1-30 tablet by ity of mg tablet 00:00: mouth [place] 00 daily. Medical Branch meloxicam 2020-0 Yes [id number] 15mg Take 1 U nivers 15 mg 1-30 tablet by ity of tablet 00:00: mouth [place] 00 daily. Medical Branch pregabalin 2020-0 Yes [id number] 150mg Take 1 [facility] (LYRICA) 1-30 capsule by ity o f 150 mg 00:00: mouth 2 [place] capsule 00 (two) Medical times Branch daily. hydroCHLORO 2020-0 Yes [id number] 25mg Take 1 [facility] thiazide 25 1-30 tablet by ity of mg tablet 00:00: mouth [place] 00 daily. Medical Branch meloxicam 2020-0 Yes [id number] 15mg Take 1 U nivers 15 mg 1-30 tablet by ity of tablet 00:00: mouth [place] 00 daily. Medical Branch pregabalin 2020-0 Yes [id number] 150mg Take 1 [facility] (LYRICA) 1-30 capsule by ity o f 150 mg 00:00: mouth 2 [place] capsule 00 (two) Medical times Branch daily. meloxicam 2020-0 Yes [id number] 15mg Take 1 U nivers 15 mg 1-30 tablet by ity of tablet 00:00: mouth [place] 00 daily. Medical Branch pregabalin 2020-0 Yes [id number] 150mg Take 1 [facility] (LYRICA) 1-30 capsule by ity o f 150 mg 00:00: mouth 2 [place] capsule 00 (two) Medical times Branch daily. meloxicam 2020-0 Yes [id number] 15mg Take 1 U nivers 15 mg 1-30 tablet by ity of tablet 00:00: mouth [place] 00 daily. Medical Branch pregabalin 2020-0 Yes [id number] 150mg Take 1 [facility] (LYRICA) 1-30 capsule by ity o f 150 mg 00:00: mouth 2 [place] capsule 00 (two) Medical times Branch daily. meloxicam 2020-0 Yes [id number] 15mg Take 1 U nivers 15 mg 1-30 tablet by ity of tablet 00:00: mouth [place] 00 daily. Medical Branch pregabalin 2020-0 Yes [id number] 150mg Take 1 [facility] (LYRICA) 1-30 capsule by ity o f 150 mg 00:00: mouth 2 [place] capsule 00 (two) Medical times Branch daily. meloxicam 2020-0 Yes [id number] 15mg Take 1 U nivers 15 mg 1-30 tablet by ity of tablet 00:00: mouth [place] 00 daily. Medical Branch pregabalin 2020-0 Yes [id number] 150mg Take 1 [facility] (LYRICA) 1-30 capsule by ity o f 150 mg 00:00: mouth 2 [place] capsule 00 (two) Medical times Branch daily. meloxicam 2020-0 Yes [id number] 15mg Take 1 U nivers 15 mg 1-30 tablet by ity of tablet 00:00: mouth [place] 00 daily. Medical Branch pregabalin 2020-0 Yes [id number] 150mg Take 1 [facility] (LYRICA) 1-30 capsule by ity o f 150 mg 00:00: mouth 2 [place] capsule 00 (two) Medical times Branch daily. meloxicam 2020-0 Yes [id number] 15mg Take 1 U nivers 15 mg 1-30 tablet by ity of tablet 00:00: mouth [place] 00 daily. Medical Branch pregabalin 2020-0 Yes [id number] 150mg Take 1 [facility] (LYRICA) 1-30 capsule by ity o f 150 mg 00:00: mouth 2 [place] capsule 00 (two) Medical times Branch daily. meloxicam 2020-0 Yes [id number] 15mg Take 1 U nivers 15 mg 1-30 tablet by ity of tablet 00:00: mouth [place] 00 daily. Medical Branch pregabalin 2020-0 Yes [id number] 150mg Take 1 [facility] (LYRICA) 1-30 capsule by ity o f 150 mg 00:00: mouth 2 [place] capsule 00 (two) Medical times Branch daily. meloxicam 2020-0 Yes [id number] 15mg Take 1 U nivers 15 mg 1-30 tablet by ity of tablet 00:00: mouth [place] 00 daily. Medical Branch pregabalin 2020-0 Yes [id number] 150mg Take 1 [facility] (LYRICA) 1-30 capsule by ity o f 150 mg 00:00: mouth 2 [place] capsule 00 (two) Medical times Branch daily. meloxicam 2020-0 Yes [id number] 15mg Take 1 U nivers 15 mg 1-30 tablet by ity of tablet 00:00: mouth [place] 00 daily. Medical Branch pregabalin 2020-0 Yes [id number] 150mg Take 1 [facility] (LYRICA) 1-30 capsule by ity o f 150 mg 00:00: mouth 2 [place] capsule 00 (two) Medical times Branch daily. meloxicam 2020-0 Yes [id number] 15mg Take 1 U nivers 15 mg 1-30 tablet by ity of tablet 00:00: mouth [place] 00 daily. Medical Branch pregabalin 2020-0 Yes [id number] 150mg Take 1 [facility] (LYRICA) 1-30 capsule by ity o f 150 mg 00:00: mouth 2 [place] capsule 00 (two) Medical times Branch daily. meloxicam 2020-0 Yes [id number] 15mg Take 1 U nivers 15 mg 1-30 tablet by ity of tablet 00:00: mouth [place] 00 daily. Medical Branch pregabalin 2020-0 Yes [id number] 150mg Take 1 [facility] (LYRICA) 1-30 capsule by ity o f 150 mg 00:00: mouth 2 [place] capsule 00 (two) Medical times Branch daily. meloxicam 2020-0 Yes [id number] 15mg Take 1 U nivers 15 mg 1-30 tablet by ity of tablet 00:00: mouth [place] 00 daily. Medical Branch pregabalin 2020-0 Yes [id number] 150mg Take 1 [facility] (LYRICA) 1-30 capsule by ity o f 150 mg 00:00: mouth 2 [place] capsule 00 (two) Medical times Branch daily. meloxicam 2020-0 Yes [id number] 15mg Take 1 U nivers 15 mg 1-30 tablet by ity of tablet 00:00: mouth [place] 00 daily. Medical Branch pregabalin 2020-0 Yes [id number] 150mg Take 1 [facility] (LYRICA) 1-30 capsule by ity o f 150 mg 00:00: mouth 2 [place] capsule 00 (two) Medical times Branch daily. meloxicam 2020-0 Yes [id number] 15mg Take 1 U nivers 15 mg 1-30 tablet by ity of tablet 00:00: mouth [place] 00 daily. Medical Branch pregabalin 2020-0 Yes [id number] 150mg Take 1 [facility] (LYRICA) 1-30 capsule by ity o f 150 mg 00:00: mouth 2 [place] capsule 00 (two) Medical times Branch daily. meloxicam 2020-0 Yes [id number] 15mg Take 1 U nivers 15 mg 1-30 tablet by ity of tablet 00:00: mouth [place] 00 daily. Medical Branch pregabalin 2020-0 Yes [id number] 150mg Take 1 [facility] (LYRICA) 1-30 capsule by ity o f 150 mg 00:00: mouth 2 [place] capsule 00 (two) Medical times Branch daily. meloxicam 2020-0 Yes [id number] 15mg Take 1 U nivers 15 mg 1-30 tablet by ity of tablet 00:00: mouth [place] 00 daily. Medical Branch pregabalin 2020-0 Yes [id number] 150mg Take 1 [facility] (LYRICA) 1-30 capsule by ity o f 150 mg 00:00: mouth 2 [place] capsule 00 (two) Medical times Branch daily. meloxicam 2020-0 Yes [id number] 15mg Take 1 U nivers 15 mg 1-30 tablet by ity of tablet 00:00: mouth [place] 00 daily. Medical Branch pregabalin 2020-0 Yes [id number] 150mg Take 1 [facility] (LYRICA) 1-30 capsule by ity o f 150 mg 00:00: mouth 2 [place] capsule 00 (two) Medical times Branch daily. meloxicam 2020-0 Yes [id number] 15mg Take 1 U nivers 15 mg 1-30 tablet by ity of tablet 00:00: mouth [place] 00 daily. Medical Branch meloxicam 2020-0 Yes [id number] 15mg Take 1 U nivers 15 mg 1-30 tablet by ity of tablet 00:00: mouth [place] 00 daily. [facility] Branch meloxicam 2020-0 Yes [id number] 15mg Take 1 U nivers 15 mg 1-30 tablet by ity of tablet 00:00: mouth [place] 00 daily. Medical Branch meloxicam 2020-0 Yes [id number] 15mg Take 1 U nivers 15 mg 1-30 tablet by ity of tablet 00:00: mouth [place] 00 daily. [facility] meloxicam 2019-0 Yes [id number] 15mg Take 1 U nivers 15 mg 1-30 tablet by ity of tablet 00:00: mouth [place] 00 daily. [facility] meloxicam 2019-0 Yes [id number] 15mg Take 1 U nivers 15 mg 1-30 tablet by ity of tablet 00:00: mouth [place] 00 daily. [facility] meloxicam 2019-0 Yes [id number] 15mg Take 1 U nivers 15 mg 1-30 tablet by ity of tablet 00:00: mouth [place] 00 daily. [facility] meloxicam 2019-0 Yes [id number] 15mg Take 1 U nivers 15 mg 1-30 tablet by ity of tablet 00:00: mouth [place] 00 daily. [facility] meloxicam 2019-0 Yes [id number] 15mg Take 1 U nivers 15 mg 1-30 tablet by ity of tablet 00:00: mouth [place] 00 daily. [facility] pregabalin 2019-0 2020- No [id number] 150mg Take 1 [facility] (LYRICA) 1-30 12-21 capsule by ity of 150 mg 00:00: 00:00 mouth 2 [place] capsule 00 :00 (two) Medical times Branch daily. hydroCHLORO 2019-0 2020- No [id number] 25mg Take 1 [facility] thiazide 25 1-30 07-09 tablet by it y of mg tablet 00:00: 00:00 mouth [place] 00 :00 daily. [facility] hydroCHLORO 2019-0 2020- No [id number] 25mg Take 1 [facility] thiazide 25 1-30 07-09 tablet by it y of mg tablet 00:00: 00:00 mouth [place] 00 :00 daily. [facility] hydroCHLORO 2019-0 2020- No [id number] 25mg Take 1 [facility] thiazide 25 1-30 07-09 tablet by it y of mg tablet 00:00: 00:00 mouth [place] 00 :00 daily. [facility] hydroCHLORO 2020- No [id number] 25mg Take 1 [facility] thiazide 25 30 07-09 tablet by it y of mg tablet 00:00: 00:00 mouth [place] 00 :00 daily. [facility] metoprolol 2019- No [id number] 25mg Take 1 U nivers succinate 30 02-24 tablet by ity of XL 25 mg 24 00:00: [place] :00 daily. [facility] metoprolol 2019- No [id number] 25mg Take 1 U nivers succinate 30 02-24 tablet by ity of XL 25 mg 24 00:00: 00:00 [place] :00 daily. [facility] metoprolol 2019- No [id number] 25mg Take 1 U nivers succinate 09-29 02-24 tablet by ity of XL 25 mg 24 00:00: 00:00 [place] :00 daily. [facility] aripiprazol 2018-08 Yes 5mg Take 5 mg U nivers e (ABILIFY 2-17 by mouth 2 ity of ORAL) 15:02: (two) [place] 33 times Medical daily. Branch aripiprazol 2018-08 Yes 5mg Take 5 mg U nivers e (ABILIFY 2-17 by mouth 2 ity of ORAL) 15:02: (two) [place] 33 times Medical daily. Branch aripiprazol 2018-08 Yes 5mg Take 5 mg U nivers e (ABILIFY 2-17 by mouth 2 ity of ORAL) 15:02: (two) [place] 33 times Medical daily. Branch aripiprazol 2018-08 Yes 5mg Take 5 mg U nivers e (ABILIFY 2-17 by mouth 2 ity of ORAL) 15:02: (two) [place] [id number] times Medical daily. Branch VITAMIN B 2018-08 Yes Take by Unive rs COMPLEX 0-31 mouth. ity of ORAL 17:11: [place] 25 Medical Branch traZODONE 2018-08 Yes 100mg Take 100 Uni vers 100 mg 0-31 mg by ity of tablet 17:11: mouth at [place] [address] bedtime. Medical Branch VITAMIN B 2018-08 Yes Take by Unive rs COMPLEX 0-31 mouth. ity of ORAL 17:11: [place] [address] Medical Branch traZODONE 2018-08 Yes 100mg Take 100 Uni vers 100 mg 0-31 mg by ity of tablet 17:11: mouth at [place] [address] bedtime. [facility] VITAMIN B 2018-08 Yes Take by Unive rs COMPLEX 0-31 mouth. ity of ORAL 17:11: [place] [address] Medical Branch traZODONE 2018-08 Yes 100mg Take 100 Uni vers 100 mg 0-31 mg by ity of tablet 17:11: mouth at [place] [address] bedtime. Medical Branch VITAMIN B 2018-08 Yes Take by Unive rs COMPLEX 0-31 mouth. ity of ORAL 17:11: [place] [address] Medical Branch traZODONE 2018-08 Yes 100mg Take 100 Uni vers 100 mg 0-31 mg by ity of tablet 17:11: mouth at [place] [address] bedtime. [facility] Branch traZODONE Yes 100mg Take 100 Uni vers 100 mg 8-29 mg by ity of tablet 19:24: mouth at [place] [address] bedtime. Medical Branch traZODONE Yes 100mg Take 100 Uni vers 100 mg 8-29 mg by ity of tablet 19:24: mouth at [place] [address] bedtime. [facility] Branch traZODONE Yes 100mg Take 100 Uni vers 100 mg 8-29 mg by ity of tablet 19:24: mouth at [place] [address] bedtime. [facility] Branch traZODONE Yes 100mg Take 100 Uni vers 100 mg 8-29 mg by ity of tablet 19:24: mouth at [place] [address] bedtime. [facility] traZODONE Yes 100mg Take 100 Uni vers 100 mg 8-29 mg by ity of tablet 19:24: mouth at [place] [address] bedtime. [facility] traZODONE Yes 100mg Take 100 Uni vers 100 mg 8-29 mg by ity of tablet 19:24: mouth at [place] [address] bedtime. Medical Branch benztropine Yes 1mg Take 1 mg U nivers 1 mg tablet 8-29 by mouth ity of 14:39: daily. [place] [address] Medical Branch ARIPiprazol Yes 10mg Take 10 mg Univers e 10 mg 8-29 by mouth 2 ity of tablet 14:39: (two) [place] 21 times Medical daily. Branch DULoxetine Yes [...] 8-29 by mouth ity of 14:39: daily. [place] [facility] ARIPiprazol Yes 10mg Take 10 [...] 8-29 by mouth ity of 14:39: daily. [place] [facility] ARIPiprazol 0 Yes 10mg Take [...] 8-29 by mouth ity of 14:39: daily. [place] [address] Medical Branch ARIPiprazol Yes 10mg Take 10 [...] 8-29 by mouth ity of 14:39: daily. [place] [facility] ARIPiprazol Yes 10mg Take 10 [...] tablet 21 times Medical daily. Branch metoprolol 20190 Yes [id number] 25mg Take 1 Un nneka succinate 8-29 tablet by ity o f XL 25 mg 24 00:00: mouth [place] hr tablet 00 daily. [facility] hydroCHLORO 2019-0 Yes [id number] 25mg Take 1 [facility] thiazide 25 8-29 tablet by ity of mg tablet 00:00: mouth [place] 00 daily. [facility] meloxicam 0 Yes [id number] 15mg Take 1 U nivers 15 mg 8-29 tablet by ity of tablet 00:00: mouth [place] 00 daily. [facility] metoprolol 0 Yes [id number] 25mg Take 1 Un nneka succinate 8-29 tablet by ity o f XL 25 mg 24 00:00: mouth [place] hr tablet 00 daily. [facility] hydroCHLORO 0 Yes [id number] 25mg Take 1 [facility] thiazide 25 8-29 tablet by ity of mg tablet 00:00: mouth [place] 00 daily. [facility] meloxicam 0 Yes [id number] 15mg Take 1 U nivers 15 mg 8-29 tablet by ity of tablet 00:00: mouth [place] 00 daily. [facility] metoprolol 0 Yes [id number] 25mg Take 1 Un nneka succinate 8-29 tablet by ity o f XL 25 mg 24 00:00: mouth [place] hr tablet 00 daily. [facility] hydroCHLORO 0 Yes [id number] 25mg Take 1 [facility] thiazide 25 8-29 tablet by ity of mg tablet 00:00: mouth [place] 00 daily. [facility] meloxicam 0 Yes [id number] 15mg Take 1 U nivers 15 mg 8-29 tablet by ity of tablet 00:00: mouth [place] 00 daily. [facility] metoprolol 0 Yes [id number] 25mg Take 1 Un nneka succinate 8-29 tablet by ity o f XL 25 mg 24 00:00: mouth [place] hr tablet 00 daily. [facility] hydroCHLORO 2018-0 Yes [id number] 25mg Take 1 [facility] thiazide 25 8-29 tablet by ity of mg tablet 00:00: mouth [place] 00 daily. [facility] meloxicam 0 Yes [id number] 15mg Take 1 U nivers 15 mg 8-29 tablet by ity of tablet 00:00: mouth [place] 00 daily. [facility] metoprolol 0 Yes [id number] 25mg Take 1 Un nneka succinate 8-29 tablet by ity o f XL 25 mg 24 00:00: mouth [place] hr tablet 00 daily. [facility] hydroCHLORO Yes [id number] 25mg Take 1 [facility] thiazide 25 8-29 tablet by ity of mg tablet 00:00: mouth [place] 00 daily. [facility] meloxicam Yes [id number] 15mg Take 1 U nivers 15 mg 8-29 tablet by ity of tablet 00:00: mouth [place] 00 daily. [facility] metoprolol Yes [id number] 25mg Take 1 Un nneka succinate 8-29 tablet by ity o f XL 25 mg 24 00:00: mouth [place] hr tablet 00 daily. [facility] hydroCHLORO Yes [id number] 25mg Take 1 [facility] thiazide 25 8-29 tablet by ity of mg tablet 00:00: mouth [place] 00 daily. [facility] meloxicam Yes [id number] 15mg Take 1 U nivers 15 mg 8-29 tablet by ity of tablet 00:00: mouth [place] 00 daily. [facility] metoprolol Yes [id number] 25mg Take 1 Un nneka succinate 8-29 tablet by ity o f XL 25 mg 24 00:00: mouth [place] hr tablet 00 daily. [facility] hydroCHLORO Yes [id number] 25mg Take 1 [facility] thiazide 25 8-29 tablet by ity of mg tablet 00:00: mouth [place] 00 daily. [facility] meloxicam Yes [id number] 15mg Take 1 U nivers 15 mg 8-29 tablet by ity of tablet 00:00: mouth [place] 00 daily. [facility] metoprolol 2020- No [id number] 25mg Take 1 U nivers succinate 8-29 01-30 tablet by ity of XL 25 mg 24 00:00: 00:00 [place] tablet 00 :00 daily. [facility] hydroCHLORO 2020- No [id number] 25mg Take 1 [facility] thiazide 25 8-29 01-30 tablet by it y of mg tablet 00:00: 00:00 mouth [place] 00 :00 daily. [facility] meloxicam 2020- No [id number] 15mg Take 1 [facility] 15 mg 8-29 01-30 tablet by ity of tablet 00:00: 00:00 mouth [place] 00 :00 daily. [facility] metoprolol 2020- No [id number] 25mg Take 1 U nivers succinate -28 09-30 tablet by ity of XL 25 mg 24 00:00: 00:00 [place] hr tablet 00 :00 daily. [facility] Branch hydroCHLORO 2020- No [id number] 25mg Take 1 [facility] thiazide 25 04-28 tablet by it y of mg tablet 00:00: 00:00 mouth [place] 00 :00 daily. [facility] meloxicam 2020- No [id number] 15mg Take 1 Univers 15 mg 04-28 [...] 7-30 00:00: 00 METOPROLOL 2018- 2019- No [id number] TAKE 1 U nivers SUCCINATE 7-06 07-29 TABLET BY ity of XL 25 mg 24 00:00: 00:00 MOUTH [place] hr tablet 00 :00 EVERY DAY [facility] METOPROLOL 2019- No [id number] TAKE 1 U nivers SUCCINATE 7-10 -29 TABLET BY ity of XL 25 mg 24 00:00: 00:00 MOUTH [place] tablet 00 :00 EVERY DAY [facility] hydroCHLORO 2019- No [id number] 25mg Take 1 [facility] thiazide 25 -29 04- tablet by it y of mg tablet 00:00: 00:00 mouth [place] 00 :00 daily. [facility] meloxicam 2019- No [id number] 7.5mg Take 1 Univers (MOBIC) 7.5 -30 - tablet by it y of mg tablet 00:00: 00:00 mouth [place] 00 :00 daily. [facility] hydroCHLORO 2019- No [id number] 25mg Take 1 [facility] thiazide 25 -30 -29 tablet by it y of mg tablet 00:00: 00:00 mouth [place] 00 :00 daily. [facility] meloxicam 2019- No [id number] 7.5mg Take 1 Univers (MOBIC) 7.5 5-30 [...] by mouth ity of tablet 20:00: at [place] 25 bedtime. Medical Branch aripiprazol 2019-0 Yes [...] by mouth ity of tablet 20:00: at [place] 25 bedtime. Medical Branch DULOXETINE 2019-0 Yes 60mg Take 60 mg U nivers HCL 4-23 by mouth 3 ity of (CYMBALTA 20:00: (three) [place] ORAL) 25 times Medical daily. Branch OLANZapine 2019-0 Yes 20mg Take 20 mg U nivers 20 mg 4-23 by mouth ity of tablet 20:00: at [place] 25 bedtime. Medical Branch DULOXETINE 2019-0 Yes 60mg Take 60 mg U nivers HCL 4-23 by mouth 3 ity of (CYMBALTA 20:00: (three) [place] ORAL) 25 times Medical daily. Branch OLANZapine 2019-0 Yes 20mg Take 20 mg U nivers 20 mg 4-23 by mouth ity of tablet 20:00: at [place] 25 bedtime. Medical Branch DULOXETINE 2019-0 Yes 60mg Take 60 mg U nivers HCL 4-23 by mouth 3 ity of (CYMBALTA 20:00: (three) [place] ORAL) 25 times Medical daily. Branch OLANZapine 2019-0 Yes 20mg Take 20 mg U nivers 20 mg 4-23 by mouth ity of tablet 20:00: at [place] 25 bedtime. Medical Branch DULOXETINE 2019-0 Yes 60mg Take 60 mg U nivers HCL 4-23 by mouth 3 ity of (CYMBALTA 20:00: (three) [place] ORAL) 25 times Medical daily. Branch OLANZapine 2019-0 Yes 20mg Take 20 mg U nivers 20 mg 4-23 by mouth ity of tablet 20:00: at [place] 25 bedtime. Medical Branch aripiprazol 2019-0 Yes [...] by mouth ity of tablet 20:00: at [place] 25 bedtime. Medical Branch aripiprazol 2019-0 Yes [...] by mouth ity of tablet 20:00: at [place] 25 bedtime. Medical Branch aripiprazol 2019-0 Yes [...] by mouth ity of tablet 20:00: at [place] 25 bedtime. Medical Branch aripiprazol 2019-0 Yes 5mg Take 5 mg U nivers e (ABILIFY 4-23 by mouth 2 ity of ORAL) 20:00: (two) [place] 25 times Medical daily. Branch DULOXETINE 2018- Yes 60mg Take 60 mg U nivers HCL 4-23 by mouth 3 ity of (CYMBALTA 20:00: (three) [place] ORAL) 25 times Medical daily. Branch OLANZapine Yes 20mg Take 20 mg U nivers 20 mg 4-23 by mouth ity of tablet 20:00: at [place] 25 bedtime. Medical Branch aripiprazol Yes 5mg Take 5 mg U nivers e (ABILIFY 4-23 by mouth 2 ity of ORAL) 20:00: (two) [place] 25 times Medical daily. Branch VITAMIN B Yes Take by Unive rs COMPLEX 3-28 mouth. ity of ORAL 16:11: [address] VITAMIN B Yes Take by Unive rs COMPLEX 3-28 mouth. ity of ORAL 16:11: [address] VITAMIN B Yes Take by Unive rs COMPLEX 3-28 mouth. ity of ORAL 16:11: [address] VITAMIN B Yes Take by Unive rs COMPLEX 3-28 mouth. ity of ORAL 16:11: [address] VITAMIN B Yes Take by Unive rs COMPLEX 3-28 mouth. ity of ORAL 16:11: [address] VITAMIN B Yes Take by Unive rs COMPLEX 3-28 mouth. ity of ORAL 16:11: [address] amlodipine No 1mg 5 mg tablet 2-19 00:00: 00 amlodipine [id number] No 1mg 5 mg tablet 2-19 00:00: 00 amlodipine [id number] No 1mg 5 mg tablet 2-19 00:00: [...] 9- 00:00: 00 Dose 2018-0 No Unknown 9 00:00: 00 Dose 2018-0 No Unknown 05-19 00:00: 00 Zyprexa 15 2018-0 No 1mg mg tablet 05-19 00:00: 00 Dose 2018-0 No Unknown 9 00:00: 00 Dose 2018-0 No Unknown 9- 00:00: 00 Dose 2018-0 No Unknown 9-19 00:00: 00 Zyprexa 15 2018-0 No 1mg mg tablet 05-19 00:00: 00 Dose 2018-0 No Unknown 9 00:00: 00 Dose 2018-0 No Unknown 9- 00:00: 00 Dose 2018-0 No Unknown -19 00:00: 00 amlodipine 2018-0 No 1mg 10 [...] 8-15 tablet 00:00: 00 cyclobenzap 2018-0 Yes [id number] Bid prn Univers rine 10 mg 8-02 ity of tablet 00:00: [address] cyclobenzap 2018-0 Yes [id number] Bid prn Univers rine 10 mg 8-02 ity of tablet 00:00: [place] 00 [facility] Branch cyclobenzap 2018-0 Yes [id number] Bid prn Univers rine 10 mg 8-02 ity of tablet 00:00: [place] 00 Medical Branch cyclobenzap 2018-0 Yes [id number] Bid prn Univers rine 10 mg 8-02 ity of tablet 00:00: [place] 00 Medical Branch cyclobenzap 2018-0 Yes [id number] Bid prn Univers rine 10 mg 8-02 ity of tablet 00:00: [place] 00 Medical Branch cyclobenzap 2018-0 Yes [id number] Bid prn Univers rine 10 mg 8-02 ity of tablet 00:00: [place] 00 Medical Branch cyclobenzap 2018-0 Yes [id number] Bid prn Univers rine 10 mg 8-02 ity of tablet 00:00: [place] 00 Medical Branch cyclobenzap 2018-0 Yes [id number] Bid prn Univers rine 10 mg 8-02 ity of tablet 00:00: [place] 00 Medical Branch cyclobenzap 2018-0 Yes [id number] Bid prn Univers rine 10 mg 8-02 ity of tablet 00:00: [place] 00 Medical Branch cyclobenzap 2018-0 Yes [id number] Bid prn Univers rine 10 mg 8-02 ity of tablet 00:00: [place] 00 Medical Branch cyclobenzap 2018-0 2020- No [id number] Bid prn Univers rine 10 mg 8-02 02-24 ity of tablet 00:00: 00:00 [place] 00 :00 Medical Branch cyclobenzap 2018-0 2020- No [id number] Bid prn Univers rine 10 mg 8-02 02-24 ity of tablet 00:00: 00:00 [place] 00 :00 Medical Branch cyclobenzap 2018-0 2020- No [id number] Bid prn Univers rine 10 mg 8-02 02-24 ity of tablet 00:00: 00:00 [place] 00 :00 Medical Branch amlodipine 2018-0 No [...] 5-19 capsule 00:00: 00 DULoxetine 2015-0 Yes [id number] Reynold sey HCl 30 MG 3-16 Seybold oral 00:00: - Capsule 00 Externa Delayed l Release Sprinkle hydrOXYzine 2015-0 Yes [id number] Ke lsey HCl 25 MG 3-16 [place] oral Tablet 00:00: - 00 Externa l DULoxetine 2015-0 Yes [id number] Reynold sey HCl 30 MG 3-16 [place] oral 00:00: - Capsule 00 Externa Delayed l Release Sprinkle hydrOXYzine 2015-0 Yes [id number] Ke lsey HCl 25 MG 3-16 [place] oral Tablet 00:00: - 00 Externa l DULoxetine 2015-0 Yes Jelena HCl 30 MG 3-16 Seybold oral 00:00: - Capsule 00 Externa Delayed l Release Sprinkle hydrOXYzine 2016-0 Yes Jelena HCl 25 MG 3-16 [place] oral Tablet 00:00: - 00 Externa l DULoxetine 2016-0 Yes [id number] Reynold sey HCl 30 MG 3-16 [place] oral 00:00: - Capsule 00 Externa Delayed l Release Sprinkle hydrOXYzine 2016-0 Yes [id number] Ke lsey HCl 25 MG 3-16 Sey[place] oral Tablet 00:00: - 00 Externa l DULoxetine 2016-0 Yes [id number] Reynold sey HCl 30 MG 3-16 [place] oral 00:00: - Capsule 00 Externa Delayed l Release Sprinkle hydrOXYzine 2016-0 Yes [id number] Ke lsey HCl 25 MG 3-16 Sey[place] oral Tablet 00:00: - 00 Externa l DULoxetine 2016-0 Yes [id number] Reynold sey HCl 30 MG 3-16 [place] oral 00:00: - Capsule 00 Externa Delayed l Release Sprinkle hydrOXYzine 2016-0 Yes [id number] Ke lsey HCl 25 MG 3-16 [place] oral Tablet 00:00: - 00 Externa l DULoxetine 2016-0 2023- No [id number] Ke lsey HCl 30 MG 3-16 04-24 Seybold oral 00:00: 00:00 - Capsule 00 :00 Externa Delayed l Release Sprinkle hydrOXYzine 2016-0 2023- No [id number] K elsey HCl 25 MG 3-16 04-24 [place] oral Tablet 00:00: 00:00 - 00 :00 Externa l Immunizations Ordered Immunization Filled Date Status Comments Sour ce Name Immunization Name COVID-19 BIVALENT 2022-08-28 Completed Jelena Seybold [...] 12-17, 6-11) Covid-19 Vaccine 2021-10-19 Completed Jelena Umaña eyradhald Moderna (Spikevax), 00:00:00 - Ext ernal Mrna-lnp, [...] Protein, Pf Covid-19 Vaccine 2021-09-07 Completed Jelena delgadold Moderna (Spikevax), 00:00:00 - Ext ernal Mrna-lnp, [place] Protein, Pf Covid-19 Vaccine 2021-09-07 Completed Jelena delgadold Moderna (Spikevax), 00:00:00 - Ext ernal Mrna-lnp, [place] Protein, Pf Covid-19 Vaccine 2021-09-07 Completed Jelena newman Moderna (Spikevax), 00:00:00 - Ext ernal Mrna-lnp, [place] Protein, Pf Covid-19 Vaccine 2021-09-07 Completed Jelena Umaña alyssaradhald Moderna (Spikevax), 00:00:00 - Ext ernal Mrna-lnp, [...] Completed Jelena Seyb old Mcv4,unspecified 00:00:00 - 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 Hepatitis A 2008-02-18 Completed Jelena Seybol d 00:00:00 - External HPV 4 (Human 2008-02-18 Completed Jelena Seybo ld Papillomavirus) 00:00:00 - Externa l Meningococcal 2008-02-18 Completed Jelena Seyb old Mcv4,unspecified 00:00:00 - 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 Hepatitis A 2008-02-18 Completed Jelena Seybol d 00:00:00 - External HPV 4 (Human 2008-02-18 Completed Jelena Seybo ld Papillomavirus) 00:00:00 - Externa l Meningococcal 2008-02-18 Completed Jelena Seyb old Mcv4,unspecified 00:00:00 - 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 Hepatitis A 2008-02-18 Completed Jelena Seybol d 00:00:00 - External HPV 4 (Human 2008-02-18 Completed Jelena Seybo ld Papillomavirus) 00:00:00 - Externa l Meningococcal 2008-02-18 Completed Jelena Seyb old Mcv4,unspecified 00:00:00 - 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 Hepatitis A 2008-02-18 Completed Jelena Seybol d 00:00:00 - External Hepatitis A 2008-02-18 Completed Jelena Seybol d 00:00:00 - External HPV 4 (Human 2008-02-18 Completed Jelena Seybo ld Papillomavirus) 00:00:00 - Externa l Meningococcal 2008-02-18 Completed Jelena Seyb old Mcv4,unspecified 00:00:00 - 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 Hepatitis A 2008-02-18 Completed Jelena Seybol d 00:00:00 - External HPV 4 (Human 2008-02-18 Completed Jelena Seybo ld Papillomavirus) 00:00:00 - Externa l Meningococcal 2008-02-18 Completed Jelena Seyb old Mcv4,unspecified 00:00:00 - 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 HPV 4 (Human 2008-02-18 Completed Jelena Seybo ld Papillomavirus) 00:00:00 - Externa l Meningococcal 2008-02-18 Completed Jelena Seyb old Mcv4,unspecified 00:00:00 - 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 Hepatitis A 2008-02-18 Completed Jelena Seybol d 00:00:00 - External HPV 4 (Human 2008-02-18 Completed Jelena Seybo ld Papillomavirus) 00:00:00 - Externa l Meningococcal 2008-02-18 Completed Jelena Seyb old Mcv4,unspecified 00:00:00 - 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 Hepatitis A 2008-02-18 Completed Jelena Seybol d 00:00:00 - External HPV 4 (Human 2008-02-18 Completed Jelena Seybo ld Papillomavirus) 00:00:00 - Externa l Meningococcal 2008-02-18 Completed Jelena Seyb old Mcv4,unspecified 00:00:00 - 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 Hepatitis A 2008-02-18 Completed Jelena Seybol d 00:00:00 - External HPV 4 (Human 2008-02-18 Completed Jelena Seybo ld Papillomavirus) 00:00:00 - Externa l Meningococcal 2008-02-18 Completed Jelena Seyb old Mcv4,unspecified 00:00:00 - 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 Hepatitis A 2008-02-18 Completed Jelena Seybol d 00:00:00 - External HPV 4 (Human 2008-02-18 Completed Jelena Seybo ld Papillomavirus) 00:00:00 - Externa l Meningococcal 2008-02-18 Completed Jelena Seyb old Mcv4,unspecified 00:00:00 - 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 Hepatitis A 2008-02-18 Completed Jelena Seybol d 00:00:00 - External HPV 4 (Human 2008-02-18 Completed Jelena Seybo ld Papillomavirus) 00:00:00 - Externa l Meningococcal 2008-02-18 Completed Jelena Seyb old Mcv4,unspecified 00:00:00 - 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 Hepatitis A 2008-02-18 Completed Jelena Seybol d 00:00:00 - External HPV 4 (Human 2008-02-18 Completed Jelena Seybo ld Papillomavirus) 00:00:00 - Externa l Meningococcal 2008-02-18 Completed Jelena Seyb old Mcv4,unspecified 00:00:00 - 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 Hepatitis A 2008-02-18 Completed Jelena Seybol d 00:00:00 - External HPV 4 (Human 2008-02-18 Completed Jelena Seybo ld Papillomavirus) 00:00:00 - Externa l Meningococcal 2008-02-18 Completed Jelena Seyb old Mcv4,unspecified 00:00:00 - 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 Td (adult), 2 2006-05-25 Completed [...] Td (adult), 2 2006-05-25 Completed Jelena Umaña eyradhald tetanus toxoid, 00:00:00 - Externa l preservative free, adsorbed Varicella Vaccine 2002-04-21 Completed Jelena Seybold 00:00:00 [...] 00:00:00 - External Varicella Vaccine 2002-04-21 Completed eJlena Seybold 00:00:00 - External Varicella Vaccine 2002-04-21 [...] Jelena henley Vaccine 00:00:00 - External DTP- 1997-04-05 Completed [...] Jelena henley Vaccine 00:00:00 - External DTP- 1997-04-05 Completed [...] - Exter nal DTP- 1996-08-05 Completed Jelena Guevaraybold Diphtheria,Tetanus,Pe 00:00:00 - E xternal rtussis HIB- [...] - E xternal rtussis DTP- 1993 Completed Jleena Ibrahim Diphtheria,Tetanus,Pe 00:00:00 - E [...] Vaccine 00:00:00 - External DTP- 1993 Completed Jelnea Ibrahim Diphtheria,Tetanus,Pe 00:00:00 - E xternal rtussis [...] Seybold Diphtheria,Tetanus,Pe 00:00:00 - E xternal rtussis Hepatitis [...] - External Hepatitis B, 1993 Completed Jelena Guevarajerzy nolasco Unspecified 00:00:00 - External DTaP Unspecified Unknown Completed Jelena Umaña eybold - External DTP- Unknown Completed Jelena Guevarakale Diphtheria,Tetanus,Pe - E xternal rtussis DTP- Unknown Completed Jelena Guevarakale Diphtheria,Tetanus,Pe - E xternal rtussis DTP- Unknown Completed Jelena Guevarakale Diphtheria,Tetanus,Pe - E xternal rtussis DTP- Unknown Completed Jelena Guevarakale Diphtheria,Tetanus,Pe - E xternal rtussis DTP- Unknown Completed Jelena Guevarakale Diphtheria,Tetanus,Pe - E xternal rtussis Hepatitis A Unknown Completed Jelena Guevaraarturo d - External Hepatitis A Unknown Completed Jelena Guevaraarturo d - External Hepatitis B, Unknown Completed Jelena jerzy nolasco Unspecified - External Hepatitis B, Unknown Completed Jelena nolasco Unspecified - External Hepatitis B, Unknown Completed Jelena jerzy nolasco Unspecified - External HIB- Haemophilus Unknown Completed Jelena Umaña paty Influenzae Type B - Exter nal HIB- Haemophilus Unknown Completed Jelena Umaña paty Influenzae Type B - Exter nal HIB- Haemophilus Unknown Completed Jelena Umaña eyboconstance Influenzae Type B - Exter nal HIB- Haemophilus Unknown Completed Jelena Umaña eybold Influenzae Type B - Exter nal HPV 4 (Human Unknown Completed Jelena jerzy nolasco Papillomavirus) - Externa l HPV 4 (Human Unknown Completed Jelena nolasco Papillomavirus) - Externa l HPV 4 (Human Unknown Completed Jelena Sejerzy nolasco Papillomavirus) - Externa l Meningococcal Unknown Completed Jelena Guevaratiffany rod Mcv4,unspecified - 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 MMR- Measles, Mumps, Unknown Completed Ashlie Ibrahim Rubella - External MMR- Measles, Mumps, Unknown Completed Ashlie Ibrahim Rubella - External Pneumococcal Vaccine, Unknown Completed Reynold Ibrahim Conjugate 7 - External Pneumococcal Vaccine, Unknown Completed Reynold Ibrahim Polysaccharide - External OPV- Oral Polio Unknown Completed Jelena henley Vaccine - External OPV- Oral Polio Unknown Completed Jelena henley Vaccine - External OPV- Oral Polio Unknown Completed Jelena Guevara ybmarcel Vaccine - External OPV- Oral Polio Unknown Completed Jelena henley Vaccine - External Td (adult), 2 Lf Unknown Completed Jelena shahjuan antonio tetanus toxoid, - Externa l preservative free, adsorbed Tdap- (Boostrix, Unknown Completed Jelena shahjuan antonio Adacel) - External Varicella Vaccine Unknown Completed Jelena Ibrahim - External COVID-19 BIVALENT Unknown Completed Jelena Ibrahim VACCINE MODERNA - Externa l Covid-19 Vaccine Unknown Completed Jelena newman Moderna (Spikevax), - Ext ernal Mrna-lnp, [place] Protein, Pf Covid-19 Vaccine Unknown Completed Jelena newman Moderna (Spikevax), - Ext ernal Mrna-lnp, Bradley Protein, Pf Vital Signs Vital Name Observation Time Observation Value Comments Source Systolic blood 2023-06-26 18:00:00 145 mm[Hg] [facility] Diastolic blood 2023-06-26 18:00:00 113 mm[Hg] [facility] Heart rate 2023-06-26 18:00:00 78 /min [facility] Body temperature 2023-06-26 18:00:00 37 [facility] Respiratory rate 2023-06-26 18:00:00 [facility] O[facility] saturation in 2023-06-26 18:00:00 97 /min [facility] Arterial blood by [facility] Pulse oximetry [place] Body height 2023-06-26 16:11:00 160 cm [facility] Body weight 2023-06-26 16:11:00 129.275 kg [facility] BMI 2023-06-26 16:11:00 50.49 kg/m2 [facility] Heart rate 2023-05-28 15:30:00 64 /min Jelena Leeroy paty - External Body temperature 2023-05-28 15:30:00 36.72 Mera Ashlie shah Setiffanymarcel - External Respiratory rate 2023-05-28 15:30:00 16 /min Ashlie shah kale - External Body height 2023-05-28 15:30:00 160 cm Jelena shahjuan antonio - External Body weight 2023-05-28 15:30:00 135.626 kg Jelena Umaña eybold - External BMI 2023-05-28 15:30:00 52.97 kg/m2 Jelena S eybold - External Systolic blood 2023-05-06 15:25:00 100 mm[Hg] Jelena Seybold - pressure External Diastolic blood 2023-05-06 15:25:00 85 mm[Hg] Reynoldse y Seybold - pressure External Heart rate 2023-05-06 15:25:00 81 /min Jelena S eybold - External Body temperature 2023-05-06 15:25:00 36.5 Mera Ashlie ey Seybold - External Body height 2023-05-06 15:25:00 160 cm Jelena Umaña eybold - External Body weight 2023-05-06 15:25:00 135.626 kg Jelena Umaña eybold - External BMI 2023-05-06 15:25:00 52.97 kg/m2 Jelena Umaña eybold - External Systolic blood 2023-04-28 13:43:00 140 mm[Hg] Jelena Seybold - pressure External Diastolic blood 2023-04-28 13:43:00 100 mm[Hg] Reynoldse y Seybold - pressure External Heart rate 2023-04-28 13:43:00 102 /min Jelena Umaña eybold - External Body weight 2023-04-28 13:43:00 135.898 kg Jelena Umaña eybold - External BMI 2023-04-28 13:43:00 53.07 kg/m2 Jelena Umaña eybold - External Systolic blood 2023-04-24 13:49:00 140 mm[Hg] Jelena Seybold - pressure External Diastolic blood 2023-04-24 13:49:00 103 mm[Hg] Beth y Seybold - pressure External Heart rate 2023-04-24 13:49:00 79 /min Jelena Umaña eybold - External Body temperature 2023-04-24 13:49:00 36.61 Mera Ashlie ey Seybold - External Respiratory rate 2023-04-24 13:49:00 20 /min Ashlie ey Seybold - External Body height 2023-04-24 13:49:00 160 cm Jelena S eybold - External Body weight 2023-04-24 13:49:00 [...] Diastolic blood 2023-02-18 16:01:00 91 mm[Hg] Beth booth Seybold - pressure External Heart rate 2023-02-18 [...] External Diastolic blood 2022-10-28 15:06:00 86 mm[Hg] Bteh y Seybold - pressure External Heart rate [...] 2020-09-07 15:09:00 126 mm[Hg] [facility] Diastolic blood 2020-09-07 15:09:00 88 mm[Hg] [facility] Heart rate 2020-09-07 15:09:00 76 /min [facility] Body height 2020-09-07 15:09:00 160 cm [facility] Body weight 2020-09-07 15:09:00 114.306 kg [facility] BMI 2020-09-07 15:09:00 44.64 kg/m2 [facility] Systolic blood 2020-09-07 15:09:00 126 mm[Hg] [facility] Diastolic blood 2020-09-07 15:09:00 88 mm[Hg] [facility] Heart rate 2020-09-07 15:09:00 76 /min [facility] Body height 2020-09-07 15:09:00 160 cm [facility] Body weight 2020-09-07 15:09:00 114.306 kg [facility] BMI 2020-09-07 15:09:00 44.64 kg/m2 [facility] Respiratory rate 2020-08-02 16:44:00 20 /min [facility] Body height 2020-08-02 16:44:00 160 cm [facility] Body weight 2020-08-02 16:44:00 114.352 kg [facility] BMI 2020-08-02 16:44:00 44.66 kg/m2 [facility] Systolic blood 2020-08-02 16:44:00 113 mm[Hg] [facility] Diastolic blood 2020-08-02 16:44:00 66 mm[Hg] [facility] Heart rate 2020-08-02 16:44:00 76 /min [facility] Body temperature 2020-08-02 16:44:00 36 Mera [facility] Systolic blood 2020-05-17 16:06:00 125 mm[Hg] [facility] Diastolic blood 2020-05-17 16:06:00 76 mm[Hg] [facility] Heart rate 2020-05-17 16:06:00 93 /min [facility] Body temperature 2020-05-17 16:06:00 36.44 Mera [facility] Respiratory rate 2020-05-17 16:06:00 18 /min [facility] Body height 2020-05-17 16:06:00 160 cm [facility] Body weight 2020-05-17 16:06:00 105.688 kg [facility] BMI 2020-05-17 16:06:00 41.27 kg/m2 [facility] Systolic blood 2020-03-08 15:04:00 108 mm[Hg] [facility] Diastolic blood 2020-03-08 15:04:00 69 mm[Hg] [facility] Heart rate 2020-03-08 15:04:00 74 /min [facility] Body temperature 2020-03-08 15:04:00 36.61 Mera [facility] Respiratory rate 2020-03-08 15:04:00 20 /min [facility] Body height 2020-03-08 15:04:00 160 cm [facility] Body weight 2020-03-08 15:04:00 112.583 kg [facility] BMI 2020-03-08 15:04:00 43.97 kg/m2 [facility] Systolic blood 2019-10-25 14:56:00 128 mm[Hg] [facility] pressure [facility] Diastolic blood 2019-10-25 14:56:00 92 mm[Hg] [facility]ity of pressure [facility] Heart rate 2019-10-25 14:56:00 72 /min [facility] Body temperature 2019-10-25 14:56:00 36.67 Mera Univ [facility] Body height 2019-10-25 14:56:00 160 cm [facility] Body weight 2019-10-25 14:56:00 110.904 kg [facility] BMI 2019-10-25 14:56:00 43.31 kg/m2 [facility] Oxygen saturation in 2019-10-25 14:56:00 99 /min [facility] of Arterial blood by [facility] Pulse oximetry Branch Systolic blood 2019-10-24 17:13:00 120 mm[Hg] [facility]ity of pressure [facility] Diastolic blood 2019-10-24 17:13:00 81 mm[Hg] [facility]ive rsity of pressure [facility] Heart rate 2019-10-24 17:13:00 75 /min [facility] Respiratory rate 2019-10-24 17:13:00 19 /min [facility] Body height 2019-10-24 17:13:00 160 cm [facility] Body weight 2019-10-24 17:13:00 110.133 kg [facility] BMI 2019-10-24 17:13:00 43.01 kg/m2 [facility] Oxygen saturation in 2019-10-24 17:13:00 99 /min University Arterial blood by [facility] Pulse oximetry Branch Systolic blood 2019-09-29 16:38:00 93 mm[Hg] [facility] pressure [facility] Diastolic blood 2019-09-29 16:38:00 64 mm[Hg] [facility]ive [facility]ity of pressure [facility] Heart rate 2019-09-29 16:38:00 77 /min [facility] Body temperature 2019-09-29 16:38:00 36.5 Mera [facility] Respiratory rate 2019-09-29 16:38:00 20 /min [facility] Body height 2019-09-29 16:38:00 160 cm [facility] Body weight 2019-09-29 16:38:00 109.77 kg [facility] BMI 2019-09-29 16:38:00 42.87 kg/m2 [facility] Systolic blood 2019-04-28 14:39:00 105 mm[Hg] [facility] Diastolic blood 2019-04-28 14:39:00 62 mm[Hg] [facility]ive [facility]ity of pressure [facility] Heart rate 2019-04-28 14:39:00 87 /min [facility] Body temperature 2019-04-28 14:39:00 36.94 Mera [facility] Respiratory rate 2019-04-28 14:39:00 18 /min [facility] Body height 2019-04-28 14:39:00 160 cm [facility] Body weight 2019-04-28 14:39:00 123.832 kg [facility] BMI 2019-04-28 14:39:00 48.36 kg/m2 [facility] Systolic blood 2023-04-16 15:02:00 149 mm[Hg[facility] 2023-04-16 15:02:00 86 mm[facility]Hg[facility] 2023-04-16 15:02:00 68 /min [facility] Body temperature 2023-04-16 15:02:00 36.67 Mera [facility] Respiratory rate 2023-04-16 15:02:00 17 /min [facility] Oxygen saturation in 2023-04-16 15:02:00 98 /min [facility] Arterial blood by Medical Ce nter Pulse oximetry Body height 2023-04-16 11:02:00 160 cm [facility] Body weight 2023-04-16 11:02:00 123.378 kg [facility] BMI 2023-04-16 11:02:00 48.18 kg/m2 [facility] BP Systolic 2022-09-10 11:46:00 168 mm[Hg] BP [...] Date / Time Performing Clinician Source Performed COMP. METABOLIC PANEL 2023-06-26 16:39:00 Sylvester Hutchinson [facility] ([id number]) Medical Branch CBC WITH DIFF 2023-06-26 16:39:00 Sylvester Hutchinson [facility] Medical Branch CONSENT/REFUSAL FOR 2023-06-26 16:18:39 Doctor Unassigned, [facility] DIAGNOSIS AND TREATMENT [facility] CT BRAIN WITHOUT IV 2023-04-16 12[facility]20:30 [facility] URINALYSIS W/ REFLEX 2023-04-16 11:53:00 [facility] URINE CULTURE [facility] RAPID DRUG SCREEN, URINE 2023-04-16 11:53:00 [facility] CBC W/PLT COUNT & AUTO 2023-04-16 11:30:00 Avnishayy [facility] DIFFERENTIAL [facility] CBC W/PLT COUNT & AUTO 2023-04-16 11:30:00 [facility] DIFFERENTIAL [facility] COMPREHENSIVE METABOLIC 2023-04-16 11:30:00 [facility] PANEL [facility] PROTHROMBIN TIME/INR 2023-04-16 11:30[facility] TROPONIN I 2023-04-16 11:30:00 [facility] MANUAL DIFFERENTIAL 2023-04-16 11:30:00 [facility] EKG-SCANNED 2023-04-16 00:00:00 Provider, [facility] REFERRAL- 2020-09-27 06:01:00 Doctor Unassigned, [facility] REQUEST/RESPONSE [facility] MR KNEE LEFT WO CONTRAST 2020-08-20 18:12:04 Alexandre Delgado [facility] NOTICE OF PRIVACY 2020-08-02 06:01:00 Doctor Lucina, [facility] PRACTICES [facility] AGREEMENTS AUTHORIZATIONS 2020-08-02 06:01:00 Doctor Lucina, [facility] AND IRREVOCABLE [facility] ASSIGNMENTS (FORM 2001) VACCINATIONS - CONSENTS, 2020-05-17 05:01:00 Doctor Lucina, [facility] ELIGIBILITY, HISTORY [facility] XR KNEE 3 VW LEFT 2020-03-16 13:13:36 Alexandre Delgado [facility] Medical [place] SCANNED LAB RESULTS 2020-03-08 05:01:00 Doctor Lucina, [facility] ASSIGNMENT OF BENEFITS 2020-02-10 13:57:41 [facility] BCPC - PRESCRIPTION / 2019-09-08 06:01:00 Doctor Lucina, [facility] ORDER [facility] AGREEMENTS AUTHORIZATIONS 2019-04-28 05:01:00 Doctor Lucina, [facility] AND IRREVOCABLE [facility] ASSIGNMENTS (FORM 2001) [id number] Ecg Routine Ecg 2018-06-14 00:00:00 W/least 12 Lds W/i r Plan of Care Planned Activity Planned Date Details Comments Source Future Scheduled 2029-04-29 DTAP/TDAP/TD VACCINES ([address] [facility] 00:00:00 - Td or Tdap) [code = Medica l Center DTAP/TDAP/TD VACCINES (2 - Td or Tdap)] Future Scheduled 2029-04-29 DTAP/TDAP/TD VACCINES ([address] [facility] Test 00:00:00 - Td or Tdap) [code = Medica l Center DTAP/TDAP/TD VACCINES (2 - Td or Tdap)] Future Scheduled 2023-05-01 Influenza Vaccine (#1) [facility] 00:00:00 [code = Influenza Vaccine Me dical Center (#1)] Future Scheduled 2023-05-01 Influenza Vaccine (#1) [facility] 00:00:00 [code = Influenza Vaccine Me dical Center (#1)] Future Scheduled 2022-08-[address] [facility] Test 00:00:00 (12+) [code = DEPRESSION Med ical Center SCREENING (12+)] Future Scheduled 2022-08-[address] [facility] Test 00:00:00 (12+) [code = DEPRESSION Med ical Center SCREENING (12+)] Future Scheduled 2021-12-14 COVID-19 VACCINE (3 - [facility]00 Booster for Moderna [facility] series) [code = COVID-19 VACCINE (3 - Booster for Moderna series)] Future Scheduled 2021-12-14 COVID-19 VACCINE (3 - [facility] 00:[facility]:00 Booster for [facility] series) [code = COVID-19 VACCINE (3 - Booster for Moderna series)] Future Scheduled 2014 Screening for malignant [facility] Test 00:00:00 neoplasm of cervix Medical C enter (procedure) [code = 968943491] Future Scheduled 2014 Screening for malignant [facility] Test 00:00:00 neoplasm of cervix Medical C enter (procedure) [code = 848106755] Future Scheduled 2013 Lipid panel (procedure) [facility] Test 00:00:00 [code = 32398997] Medical Ce nter Future Scheduled 2013 Lipid panel (procedure) [facility] Test 00:00:00 [code = 99930955] Medical Ce nter Future Scheduled 2011 HEPATITIS C SCRE[facility]ING [facility] 00:00:00 [code = HEPATITIS C Medical Center SCREENING] Future Scheduled 2011 HEPATITIS C SCRE[facility]ING [facility] 00:00:00 [code = HEPATITIS C Medical Center SCREENING] Future Scheduled [address] [facility] 00:00:00 virus screening Medical Cent er (procedure) [code = 294167435] Future Scheduled [address] [facility] 00:00:00 virus screening Medical Cent er (procedure) [code = 388614345] Future Scheduled [address] [facility] Test 00:00:00 Counseling and Screening Med ical Center (12+) [code = Tobacco Cessation Counseling and Screening (12+)] Future Scheduled [address] [facility] Test 00:00:00 Counseling and Screening [facility] (12+) [code = Tobacco Cessation Counseling and Screening (12+)] Goal Plan of Care Note [code = 70635-3] Goal Plan of Care Note [code = 97366-9] Goal Plan of Care Note [code = 00604-5] Goal Plan of Care Note [code = 56715-4] Goal Plan of Care Note [code = 81745-7] Goal Plan of Care Note [code = 22249-2] Goal Plan of Care Note [code = 71318-7] Goal Plan of Care Note [code = 63226-6] Goal Plan of Care Note [code = 75137-6] Goal Plan of Care Note [code = 38277-8] Goal Plan of Care Note [code = 04167-4] Goal Plan of Care Note [code = 03419-2] Goal Plan of Care Note [code = 51836-3] Goal Plan of Care Note [code = 36481-2] Goal Plan of Care Note [code = 76318-1] Goal Plan of Care Note [code = 98745-9] Goal Plan of Care Note [code = 50680-6] Goal Plan of Care Note [code = 10155-2] Goal Plan of Care Note [code = 32638-4] Goal Plan of Care Note [code = 31477-5] Goal Plan of Care Note [code = 11795-2] Goal Plan of Care Note [code = 73701-8] Goal Plan of Care Note [code = 25917-4] Goal Plan of Care Note [code = 25838-3] Goal Plan of Care Note [code = 25925-6] Goal Plan of Care Note [code = 36605-8] Goal Plan of Care Note [code = 10237-6] Goal Plan of Care Note [code = 51052-6] Goal Plan of Care Note [code = 90161-4] Goal Plan of Care Note [code = 15227-7] Goal Plan of Care Note [code = 68569-0] Goal Plan of Care Note [code = 54530-2] Goal Plan of Care Note [code = 58933-0] Goal Plan of Care Note [code = 95839-5] Goal Plan of Care Note [code = 95509-1] Goal Plan of Care Note [code = 68409-3] Goal Plan of Care Note [code = 17155-7] Goal Plan of Care Note [code = 28557-6] Goal Plan of Care Note [code = 24314-4] Goal Plan of Care Note [code = 75196-5] Goal Plan of Care Note [code = 12636-5] Goal Plan of Care Note [code = 87117-0] Goal Plan of Care Note [code = 10378-0] Goal Plan of Care Note [code = 56861-3] Goal Plan of Care Note [code = 25979-6] Goal Plan of Care Note [code = 23733-6] Goal Plan of Care Note [code = 60980-6] Goal Plan of Care Note [code = 66305-4] Goal Plan of Care Note [code = 53069-6] Goal Plan of Care Note [code = 23798-4] Goal Plan of Care Note [code = 19167-8] Goal Plan of Care Note [code = 93996-1] Goal Plan of Care Note [code = 41047-6] Goal Plan of Care Note [code = 12926-7] Goal Plan of Care Note [code = 24076-7] Goal Plan of Care Note [code = 76872-2] Goal Plan of Care Note [code = 29759-6] Goal Plan of Care Note [code = 57434-8] Goal Plan of Care Note [code = 83489-2] Goal Plan of Care Note [code = 87795-0] Goal Plan of Care Note [code = 02043-8] Goal Plan of Care Note [code = 47396-7] Goal Plan of Care Note [code = 07938-7] Goal Plan of Care Note [code = 36019-6] Goal Plan of Care Note [code = 87565-9] Goal Plan of Care Note [code = 21453-4] Goal Plan of Care Note [code = 32085-5] Goal Plan of Care Note [code = 69949-1] Goal Plan of Care Note [code = 75728-0] Goal Plan of Care Note [code = 37339-9] Goal Plan of Care Note [code = 94691-6] Goal Plan of Care Note [code = 10521-8] Goal Plan of Care Note [code = 08811-5] Goal Plan of Care Note [code = 25658-5] Goal Plan of Care Note [code = 15523-5] Goal Plan of Care Note [code = 02273-7] Goal Plan of Care Note [code = 03265-3] Goal Plan of Care Note [code = 45788-3] Goal Plan of Care Note [code = 02901-2] Goal Plan of Care Note [code = 57519-9] Goal Plan of Care Note [code = 86663-8] Goal Plan of Care Note [code = 94771-3] Goal Plan of Care Note [code = 97187-2] Goal Plan of Care Note [code = 60100-5] Goal Plan of Care Note [code = 02366-4] Goal Plan of Care Note [code = 42339-0] Goal Plan of Care Note [code = 78479-5] Goal Plan of Care Note [code = 47219-1] Goal Plan of Care Note [code = 37458-3] Goal Plan of Care Note [code = 41478-2] Goal Plan of Care Note [code = 21099-4] Goal Plan of Care Note [code = 28551-0] Goal Plan of Care Note [code = 61686-1] Goal Plan of Care Note [code = 86525-9] Goal Plan of Care Note [code = 39451-4] Goal Plan of Care Note [code = 29972-5] Goal Plan of Care Note [code = 78839-8] Goal Plan of Care Note [code = 47483-3] Goal Plan of Care Note [code = 26374-8] Goal Plan of Care Note [code = 48308-5] Goal Plan of Care Note [code = 39070-5] Goal Plan of Care Note [code = 76989-6] Goal Plan of Care Note [code = 58909-6] Goal Plan of Care Note [code = 78101-1] Goal Plan of Care Note [code = 73066-3] Goal Plan of Care Note [code = 60731-9] Goal Plan of Care Note [code = 03336-3] Goal Plan of Care Note [code = 65950-1] Goal Plan of Care Note [code = 81624-6] Encounters Start End Encounter Admission Attending Care Care Encounter Source Date/Time Date/Time Type Type Clinicians Facility Department ID 2023-11-17 2023-11-17 Outpatient JELENA VICK [id number] Jelena 09:00:00 09:00:00 DARLIN Seybo ld 2023-08-17 2023-08-17 Outpatient DORA WINN JELENA KNIGHT [id number] Jelena 10:45:00 10:45:00 Seybol d 2023-08-12 2023-08-12 Outpatient JELENA KNIGHT [id number] Jelena 11:30:00 11:30:00 Seybol d 2023-08-12 2023-08-12 Outpatient ABY JELENA KNIGHT [id number] Jelena 10:30:00 10:30:00 SHIRLEY Seyb old 2023-08-10 2023-08-10 Outpatient JELENA KNIGHT [id number] Jelena 11:30:00 11:30:00 Seybol d 2023-08-10 2023-08-10 Outpatient ARTISJELENA [id number] Jelena 11:00:00 11:00:00 SANDRA Seybol d 2023-07-10 2023-07-10 Outpatient JELENA KIMBALL [id number] Jelena 10:00:00 10:00:00 LEI Seybo ld 2023-07-02 2023-07-02 Outpatient JELENA GARY [id number] Jelena 08:00:00 08:00:00 ROBYN Seybol d 2023-06-27 2023-06-27 Outpatient JELENA ORNELAS [id number] Jelena 00:00:00 00:00:00 JUVENCIO Eatono ld 2023-06-26 2023-06-26 [facility] [id number] Univers 11:06:00 13:33:00 SYLVESTER arshad [facility] 2023-06-26 2023-06-26 Emergency [facility] [id number] Univers 11:06:00 13:33:00 Sylvester CHRISTY [id number] marifer hunt [facility] [id number] [facility] [id number] [place] [address] Branch 2023-06-25 2023-06-25 Outpatient JELENA GARY [id number] Jelena 00:00:00 00:00:00 ROBYN Seybol d 2023-06-19 2023-06-19 Outpatient PRENIDA JELENA KNIGHT [id number] Jelena 00:00:00 00:00:00 BYRON Seybol d 2023-06-19 2023-06-19 Outpatient MARYA JELENA KNIGHT [id number] Jelena 00:00:00 00:00:00 BYRON Seybol d 2023-06-18 2023-06-18 Outpatient ANSELMO JELENA KNIGHT [id number] Jelena 00:00:00 00:00:00 AHMED Seybol d 2023-06-07 2023-06-07 Outpatient COOKIE JELENA KNIGHT [id number] Jelena 00:00:00 00:00:00 ROBYN Seybol d 2023-06-02 2023-06-02 Outpatient FARIDAJessica JELENA KNIGHT [id number] Jelena 00:00:00 00:00:00 ROBYN Seybol d 2023-06-01 2023-06-01 Outpatient MYREYNOLDSEYONJessica KNIGHT [id number] Jelena 00:00:00 00:00:00 MD ANKITA Seybol d 2023-06-01 2023-06-01 Outpatient JELENA GARY [id number] Jelena 00:00:00 00:00:00 ROBYN Seybol d 2023-05-28 2023-05-28 Outpatient [id number] JELENA KNIGHT [id number] Jelena 11:45:00 11:45:00 Seybol d 2023-05-28 2023-05-28 Outpatient DORA WINN [id number] Jelena 10:45:00 10:45:00 Seybol d 2023-05-20 2023-05-20 Outpatient JELENA BRIONES [id number] Jelena 00:00:00 00:00:00 AHMED Seybol d 2023-05-17 2023-05-17 Outpatient JELENA GARY [id number] Jelena 00:00:00 00:00:00 ROBYN Seybol d 2023-05-15 2023-05-15 Outpatient JELENA SCHMIDT [id number] Jelena 00:00:00 00:00:00 JONN Seybol d 2023-05-14 2023-05-14 Outpatient ANGELO, JELENA KNIGHT [id number] Jelena 10:15:00 10:15:00 LUKE Seybol d 2023-05-14 2023-05-14 Outpatient FARIDAL, JELENA KNIGHT [id number] Jelena 00:00:00 00:00:00 ROBYN Seybol d 2023-05-13 2023-05-13 Outpatient ANGELOJELENA [id number] Jelena 10:15:00 10:15:00 LUKE Seybol d 2023-05-13 2023-05-13 Outpatient PREZAS, JELENA KNIGHT [id number] Jelena 00:00:00 00:00:00 BYRON Seybol d 2023-05-12 2023-05-12 Outpatient HYUN GAURAVDANDRE KNIGHT [id number] Jelena 00:00:00 00:00:00 Seybol d 2023-05-12 2023-05-12 Outpatient JELENA GARY [id number] Jelena 00:00:00 00:00:00 ROBYN Seybol d 2023-05-11 2023-05-11 Outpatient JELENA GARY [id number] Jelena 09:00:00 09:00:00 ROBYN Seybol d 2023-05-06 2023-05-06 Outpatient LAB90 JELENA KNIGHT [id number] Jelena 11:20:00 11:20:00 Seybol d 2023-05-06 2023-05-06 Outpatient JELENA GARY [id number] Jelena 10:30:00 10:30:00 ROBYN Seybol d 2023-05-01 2023-05-01 Outpatient JELENA GARY [id number] Jelena 00:00:00 00:00:00 ROBYN Seybol d 2023-04-28 2023-04-28 Outpatient JELENA VICK [id number] Jelena 09:00:00 09:00:00 DARLIN Seybo ld 2023-04-26 2023-04-26 Outpatient JELENA GARY [id number] Jelena 00:00:00 00:00:00 ROBYN Seybol d 2023-04-24 2023-04-24 Outpatient GAURAV PURVIS [id number] Jelena 09:00:00 09:00:00 Seybol d 2023-04-23 2023-04-23 Outpatient RUSSELL JELENA KNIGHT [id number] Jelena 00:00:00 00:00:00 MD ANKITA Seybol d 2023-04-20 2023-04-20 Outpatient GAURAV PURVIS [id number] Jelena 10:30:00 10:30:00 Seybol d 2023-04-20 2023-04-20 Outpatient JELENA BRIONES [id number] Jelena 00:00:00 00:00:00 AHMED Seybol d 2023-04-17 2023-04-17 Outpatient JELENA NEVAREZ [id number] Jelena 00:00:00 00:00:00 LASUNDRA Seybo ld 2023-04-17 2023-04-17 Outpatient JELENA GARY [id number] Jelena 00:00:00 00:00:00 ROBYN Seybol d 2023-04-16 2023-04-16 Emergency [facility] [id number] [facility] 10:54:00 15:04:00 [place] 2023-04-16 2023-04-16 [facility] [id number] [facility] 10:54:00 15:04:00 [facility] 2023-04-16 2023-04-16 [facility] [id number] [facility] 10:54:00 15:04:00 [facility] 2023-04-16 2023-04-16 [facility] [id number] SLS 12:07:04 12:07:04 RACHEL 2023-04-16 2023-04-16 Outpatient JELENA STOKES [id number] Jelena 10:30:00 10:30:00 SPENSER Seybol d 2023-04-16 2023-04-16 Outpatient JELENA WANG [id number] Jelena 00:00:00 00:00:00 KELSEY Seybol d 2023-04-13 2023-04-13 Outpatient ALYSSA PURVISDANDRE KNIGHT [id number] Jelena 10:30:00 10:30:00 Seybol d 2023-03-25 2023-03-25 Outpatient HYUN GAURAV KNIGHT [id number] Jelena 00:00:00 00:00:00 Seybol d 2023-03-23 2023-03-23 Outpatient NIKKIJAYRO GAURAV KNIGHT [id number] Jelena 10:30:00 10:30:00 Seybol d 2023-03-19 2023-03-19 Outpatient JELENA GARY [id number] Jelena 00:00:00 00:00:00 ROBYN Seybol d 2023-03-18 2023-03-18 Outpatient JELENA MALHOTRA [id number] Jelena 00:00:00 00:00:00 BYRON Seybol d 2023-03-17 2023-03-17 Outpatient MYKELSEYONL JELENA KNIGHT [id number] Jelena 00:00:00 00:00:00 MD ANKITA Seybol d 2023-03-16 2023-03-16 Outpatient JELENA GARY [id number] Jelena 00:00:00 00:00:00 ROBYN Seybol d 2023-03-11 2023-03-11 Outpatient JELENA BRIONES [id number] Jelena 11:15:00 11:15:00 AHMED Seybol d 2023-03-09 2023-03-09 Outpatient JELENA GARY [id number] Jelena 00:00:00 00:00:00 ROBYN Seybol d 2023-03-05 2023-03-05 Outpatient JELENA BRIONES [id number] Jelena 00:00:00 00:00:00 AHMED Seybol d 2023-03-02 2023-03-02 Outpatient JELENA GARY [id number] Jelena 00:00:00 00:00:00 ROBYN Seybol d 2023-02-20 2023-02-20 Outpatient HUNDL, JELENA KNIGHT [id number] Jelena 00:00:00 00:00:00 ROBYN Seybol d 2023-02-20 2023-02-20 Outpatient HUNDJessica, JELENA KNIGHT [id number] Jelena 00:00:00 00:00:00 ROBYN Seybol d 2023-02-19 2023-02-19 Outpatient PREZAS, JELENA KNIGHT [id number] Jelena 00:00:00 00:00:00 BYRON Seybol d 2023-02-18 2023-02-18 Outpatient HUNDL, JELENA KNIGHT [id number] Jelena 11:00:00 11:00:00 ROBYN Seybol d 2023-02-16 2023-02-16 Outpatient HUNDL, JELENA KNIGHT [id number] Jelena 00:00:00 00:00:00 ROBYN Seybol d 2023-02-06 2023-02-06 Outpatient JELENA NEVAREZ [id number] Jelena 00:00:00 00:00:00 LASUNDRA Seybo ld 2023-02-06 2023-02-06 Outpatient JELENA JOHN [id number] Jelena 00:00:00 00:00:00 SHANEIKA Seybo ld 2023-02-05 2023-02-05 Outpatient LAB90 JELENA KNIGHT [id number] Jelena 09:10:00 09:10:00 Seybol d 2023-02-05 2023-02-05 Outpatient JELENA MALHOTRA [id number] Jelena 00:00:00 00:00:00 BYRON Seybol d 2023-02-05 2023-02-05 Outpatient JELENA TREVIÑO [id number] Jelena 00:00:00 00:00:00 OLENA Seybol d 2023-02-02 2023-02-02 Outpatient JELENA STOKES [id number] Jelena 09:30:00 09:30:00 SPENSER Seybol d 2023-02-02 2023-02-02 Outpatient JELENA GARY [id number] Jelena 00:00:00 00:00:00 ROBYN Seybol d 2023-02-02 2023-02-02 Outpatient HUNDL, JELENA KNIGHT [id number] Jelena 00:00:00 00:00:00 ROBYN Seybol d 2023-01-28 2023-01-28 Outpatient SEWMONSE JELENA KNIGHT [id number] Jelena 11:00:00 11:00:00 AHMED Seybol d 2023-01-18 2023-01-18 Outpatient HUNDL, JELENA KNIGHT [id number] Jelena 00:00:00 00:00:00 ROBYN Seybol d 2023-01-17 2023-01-17 Outpatient PREZAS, JELENA KNIGHT [id number] Jelena 00:00:00 00:00:00 BYRON Seybol d 2023-01-14 2023-01-14 Outpatient HUNDL, JELENA KNIGHT [id number] Jelena 00:00:00 00:00:00 ROBYN Seybol d 2023-01-07 2023-01-07 Outpatient HUNDL, JELENA KNIGHT [id number] Jelena 00:00:00 00:00:00 ROBYN Seybol d 2023-01-06 2023-01-06 Outpatient KAWAR, GAURAV JELENA KNIGHT [id number] Jelena 00:00:00 00:00:00 Seybol d 2023-01-06 2023-01-06 Outpatient HUNDL, JELENA KNIGHT [id number] Jelena 00:00:00 00:00:00 ROBYN Seybol d 2023-01-06 2023-01-06 Outpatient MERRILL, JELENA KNIGHT [id number] Jelena 00:00:00 00:00:00 JAROD Seybol d 2023-01-01 2023-01-01 Outpatient HUNDL, JELENA KNIGHT [id number] Jelena 10:30:00 10:30:00 ROBYN Seybol d 2023-01-01 2023-01-01 Outpatient HUNDL, JELENA KNIGHT [id number] Jelena 00:00:00 00:00:00 ROBYN Seybol d 2022-12-31 2022-12-31 Outpatient PLABPA JELENA KNIGHT [id number] Jelena 09:00:00 09:00:00 Seybol d 2022-12-30 2022-12-30 Outpatient COOKIE JELENA KNIGHT [id number] Jelena 10:30:00 10:30:00 ROBYN Seybol d 2022-12-29 2022-12-29 Outpatient LAB90 JELENA KNIGHT [id number] Jelena 11:20:00 11:20:00 Seybol d 2022-12-29 2022-12-29 Outpatient FARIDAL, JELENA JELENA [id number] Jelena 10:30:00 10:30:00 ROBYN Seybol d 2022-12-29 2022-12-29 Outpatient HUNDL, JELENA KNIGHT [id number] Jelena 00:00:00 00:00:00 ROBYN Seybol d 2022-12-29 2022-12-29 Outpatient SEWMONSE JELENA KNIGHT [id number] Jelena 00:00:00 00:00:00 AHMED Seybol d 2022-12-26 2022-12-26 Outpatient PLABPA JELENA KNIGHT [id number] Jelena 09:00:00 09:00:00 Seybol d 2022-12-26 2022-12-26 Outpatient JELENA BYNUM [id number] Jelena 00:00:00 00:00:00 JENNIFER Seybol d 2022-12-26 2022-12-26 Outpatient PREJELENA ALVA [id number] Jelena 00:00:00 00:00:00 BYRON Seybol d 2022-12-25 2022-12-25 Outpatient GAURAV PURVIS [id number] Jelena 00:00:00 00:00:00 Seybol d 2022-12-24 2022-12-24 Outpatient PLABPA JELENA KNIGHT [id number] Jelena 11:30:00 11:30:00 Seybol d 2022-12-22 2022-12-22 Outpatient GAURAV PURVIS [id number] Jelena 09:00:00 09:00:00 Seybol d 2022-12-22 2022-12-22 Outpatient COOKIE JELENA KNIGHT [id number] Jelena 00:00:00 00:00:00 ROBYN Seybol d 2022-12-20 2022-12-20 Outpatient NANCY JELENA KNIGHT [id number] Jelena 00:00:00 00:00:00 JALYN Seybol d 2022-12-19 2022-12-19 Outpatient PREZAJELENA Umaña [id number] Jelena 00:00:00 00:00:00 BYRON Seybol d 2022-12-18 2022-12-18 Outpatient JELENA GARY [id number] Jelena 00:00:00 00:00:00 ROBYN Seybol d 2022-12-18 2022-12-18 Outpatient JELENA GARY [id number] Jelena 00:00:00 00:00:00 ROBYN Seybol d 2022-12-15 2022-12-15 Outpatient RUSSELL KNIGHT [id number] Jelena 00:00:00 00:00:00 MD ANKITA Seybol d 2022-12-15 2022-12-15 Outpatient JELENA MARTINEZ [id number] Jelena 00:00:00 00:00:00 MANOLO Seybol d 2022-12-15 2022-12-15 Outpatient JELENA GIVENS [id number] Jelena 00:00:00 00:00:00 GAUTAM Seybol d 2022-12-12 2022-12-12 Outpatient PATJELENA WINCHESTER [id number] Jelena 10:30:00 10:30:00 GAUTAM Seybol d 2022-12-12 2022-12-12 Outpatient JELENA KNIGHT [id number] Jelena 00:00:00 00:00:00 Seybol d 2022-12-12 2022-12-12 Outpatient PREZAJELENA Umaña [id number] Jelena 00:00:00 00:00:00 BYRON Seybol d 2022-12-11 2022-12-11 Outpatient PREZAJELENA Umaña [id number] Jelena 00:00:00 00:00:00 BYRON Seybol d 2022-12-08 2022-12-08 Outpatient MERRILLJELENA [id number] Jelena 10:40:00 10:40:00 JAROD Seybol d 2022-12-08 2022-12-08 Outpatient JELENA KNIGHT [id number] Jelena 10:25:00 10:25:00 Seybol d 2022-12-08 2022-12-08 Outpatient GAURAV PURVIS JELENA KNIGHT [id number] Jelena 08:30:00 08:30:00 Seybol d 2022-12-08 2022-12-08 Outpatient FARIDAL, JELENA KNIGHT [id number] Jelena 00:00:00 00:00:00 ROBYN Seybol d 2022-12-04 2022-12-04 Outpatient PREZAS, JELENA KNIGHT [id number] Jelena 00:00:00 00:00:00 BYRON Seybol d 2022-12-04 2022-12-04 Outpatient MERRILL, JELENA KNIGHT [id number] Jelena 00:00:00 00:00:00 JAROD Seybol d 2022-12-04 2022-12-04 Outpatient JELENA KNIGHT [id number] Jelena 00:00:00 00:00:00 Seybol d 2022-12-04 2022-12-04 Outpatient FARIDAL, JELENA KNIGHT [id number] Jelena 00:00:00 00:00:00 ROBYN Seybol d 2022-12-01 2022-12-01 Outpatient FARIDAL, JELENA KNIGHT [id number] Jelena 00:00:00 00:00:00 ROBYN Seybol d 2022-11-27 2022-11-[address], TECH JELENA KNIGHT [id number] Jelena 10:30:00 10:30:00 Seybol d 2022-11-27 2022-11-27 Outpatient MYKELSEYONL JELENA KNIGHT [id number] Jelena 00:00:00 00:00:00 MD ANKITA Seybol d 2022-11-27 2022-11-27 Outpatient MYREYNOLDSEYONL JELENA KNIGHT [id number] Jelena 00:00:00 00:00:00 MD ANKITA Seybol d 2022-11-21 2022-11-21 Outpatient JELENA GARY [id number] Jelena 00:00:00 00:00:00 ROBYN Seybol d 2022-11-20 2022-11-20 Outpatient [facility] [id number] Jarod 10:08:21 10:08:21 0323 F Lee 2022-11-19 2022-11-19 Outpatient COOKIE JELENA KNIGHT [id number] Jelena 00:00:00 00:00:00 ROBYN Seybol d 2022-11-14 2022-11-14 Outpatient JELENA GARY [id number] Jelena 00:00:00 00:00:00 ROBYN Seybol d 2022-11-14 2022-11-14 Outpatient JELENA KNIGHT [id number] Jelena 00:00:00 00:00:00 Seybol d 2022-11-11 2022-11-11 Outpatient JELENA GARY [id number] Jelena 00:00:00 00:00:00 ROBYN Seybol d 2022-11-07 2022-11-07 Outpatient JELENA VICK [id number] Jelena 00:00:00 00:00:00 DARLIN Seybo ld 2022-11-07 2022-11-07 Outpatient JELENA VICK [id number] Jelena 00:00:00 00:00:00 DARLIN Seybo ld 2022-11-07 2022-11-07 Outpatient JELENA VICK [id number] Jelena 00:00:00 00:00:00 DARLIN Seybo ld 2022-11-07 2022-11-07 Outpatient JELENA VICK [id number] Jelena 00:00:00 00:00:00 DARLIN Seybo ld 2022-11-07 2022-11-07 Outpatient JELENA GARY [id number] Jelena 00:00:00 00:00:00 ROBYN Seybol d 2022-11-07 2022-11-07 Outpatient JELENA GARY [id number] Jelena 00:00:00 00:00:00 ROBYN Seybol d 2022-11-07 2022-11-07 Outpatient JELENA GARY [id number] Jelena 00:00:00 00:00:00 ROBYN Seybol d 2022-11-07 2022-11-07 Outpatient HUNDL, JELENA KNIGHT [id number] Jelena 00:00:00 00:00:00 ROBYN Seybol d 2022-11-07 2022-11-07 Outpatient HUNDL, JELENA KNIGHT [id number] Jelena 00:00:00 00:00:00 ROBYN Seybol d 2022-11-07 2022-11-07 Outpatient HUNDL, JELENA KNIGHT [id number] Jelena 00:00:00 00:00:00 ROBYN Seybol d 2022-10-30 2022-10-30 Outpatient [facility] [id number] Jarod 08:26:44 08:26:44 0302 F Lee 2022-10-30 2022-10-30 Outpatient FARIDAL, JELENA KNIGHT [id number] Jelena 00:00:00 00:00:00 ROBYN Seybol d 2022-10-29 2022-10-29 Outpatient FARIDAL, JELENA KNIGHT [id number] Jelena 00:00:00 00:00:00 ROBYN Seybol d 2022-10-29 2022-10-29 Outpatient HUNDL, JELENA KNIGHT [id number] Jelena 00:00:00 00:00:00 ROBYN Seybol d 2022-10-29 2022-10-29 Outpatient FARIDAL, JELENA KNIGHT [id number] Jelena 00:00:00 00:00:00 ROBYN Seybol d 2022-10-29 2022-10-29 Outpatient JELENA VICK [id number] Jelena 00:00:00 00:00:00 DARLIN Seybo ld 2022-10-28 2022-10-28 Outpatient LAB JELENA KNIGHT [id number] Jelena 09:45:00 09:45:00 Seybol d 2022-10-28 2022-10-28 Outpatient JELENA VICK [id number] Jelena 09:00:00 09:00:00 DARLIN Seybo ld 2022-10-23 2022-10-23 Outpatient JELENA GARY [id number] Jelena 00:00:00 00:00:00 ROBYN Seybol d 2022-10-22 2022-10-22 Outpatient HUNDL, JELENA JELENA [id number] Jelena 08:00:00 08:00:00 ROBYN Seybol d 2022-10-13 2022-10-13 Outpatient SFA SFA [id number] Jarod 11:24:16 11:24:16 [id number] F Lee 2022-10-10 2022-10-10 Outpatient LAB90 JELENA KNIGHT [id number] Jelena 09:25:00 09:25:00 Seybol d 2022-10-10 2022-10-10 Outpatient HUNDL, JELENA KNIGHT [id number] Jelena 08:30:00 08:30:00 ROBYN Seybol d 2022-10-10 2022-10-10 Outpatient HUNDL, JELENA KNIGHT [id number] Jelena 00:00:00 00:00:00 ROBYN Seybol d 2022-10-09 2022-10-09 Outpatient HUNDL, JELENA KNIGHT [id number] Jelena 08:30:00 08:30:00 ROBYN Seybol d 2022-10-09 2022-10-09 Outpatient HUNDL, JELENA KNIGHT [id number] Jelena 00:00:00 00:00:00 ROBYN Seybol d 2022-09-30 2022-09-30 Outpatient HUNDL, JELENA JELENA [id number] Jelena 00:00:00 00:00:00 ROBYN Seybol d 2022-09-26 2022-09-26 Outpatient HUNDL, JELENA KNIGHT [id number] Jelena 00:00:00 00:00:00 ROBYN Seybol d 2022-09-24 2022-09-24 Outpatient LAB90 JELENA KNIGHT [id number] Jelena 17:05:00 17:05:00 Seybol d 2022-09-24 2022-09-24 Outpatient HUNDL, JELENA KNIGHT [id number] Jelena 11:00:00 11:00:00 ROBYN Seybol d 2022-09-22 2022-09-22 Outpatient SFA SFA [id number] Jarod 09:21:24 09:21:24 0123 F Lee 2022-09-22 2022-09-22 Outpatient HUNDL, JELENA JELENA [id number] Jelena 00:00:00 00:00:00 ROBYN Seybol d 2022-09-17 2022-09-17 Outpatient JELENA GARY JELENA [id number] Jelena 00:00:00 00:00:00 ROBYN Seybol d 2022-09-12 2022-09-12 Outpatient JELENA GARY JELENA [id number] Jelena 00:00:00 00:00:00 ROBYN Seybol d 2022-09-11 2022-09-11 Outpatient JELENA GARY JELENA [id number] Jelena 00:00:00 00:00:00 ROBYN Seybol d 2022-09-10 2022-09-10 Outpatient SFA SFA [id number] Jarod 11:36:44 11:36:44 0111 F Lee 2022-09-10 2022-09-10 Outpatient [id number] 00:00:00 00:00:00 Visit 87da-47c3 7da-47c3-b -um64-0v4 o23-0c1a9b [id number] 2022-09-09 2022-09-09 Outpatient LAB90 JELENA KNIGHT [id number] Jelena 09:30:00 09:30:00 Setiffanyol d 2022-09-09 2022-09-09 Outpatient JELENA GARY JELENA [id number] Jelena 08:30:00 08:30:00 ROBYN Seybol d 2022-09-09 2022-09-09 Outpatient JELENA GARY JELENA [id number] Jelena 00:00:00 00:00:00 ROBYN Seybol d 2022-09-04 2022-09-04 Outpatient SFA SFA [id number] Jarod 08:29:33 08:29:33 0105 F Lee 2022-09-04 2022-09-04 Outpatient [id number] 00:00:00 00:00:00 Visit 7ig8-6mo0 bd9-4ec7-b -bbc8-d95 bc8-d957ab [id number] 2022-08-28 2022-08-28 Outpatient SFA SFA [id number] Jarod 11:35:11 11:35:11 [id number] F Lee 2022-08-28 2022-08-28 Outpatient [id number] 00:00:00 00:00:00 Visit 010b-47c2 10b-47c2-b -k7f6-h27 9q4-i202z6 [id number] [id number] 2022-05-24 2022-05-24 emergency [id number] 15:15:00 18:38:00 [id number] 81-551e-843 36 -843c-ca8 [id number] 5eb 2022-03-15 2022-03-15 Outpatient AMBREEN_FAR [facility] [id number] [place] 10:56:00 10:56:00 FLO 0716 [facility] 2020-11-29 2020-11-29 Outpatient [facility] [id number] Univers 15:30:00 15:30:00 ANNEMARIE klein [facility] 2020-10-23 2020-10-23 Telephone Alexandre Delgado 1.2.840.114 [id number] Univers 00:00:00 00:00:00 [place] [address].1.13.10 [id number] [address] 2020-10-23 2020-10-23 Telephone Alexandre Delgado 1.2.840.114 [id number] 00:00:00 00:00:00 [place] [address].1.13.10 HEALTH 4.2.7.2.686 UNIT [id number] 2020-10-12 2020-10-12 [facility] [id number] Univers 09:00:00 09:00:00 SHEY arshad [facility] 2020-09-27 2020-09-27 Orders Doctor PRIETO 1.2.840.114 [id number] Univers 00:00:00 00:00:00 Only Unassigned, LESLEY 350.1.13.10 ity of [facility] 4.2.7.2.686 Marvel as [id number] [address] 2020-09-27 2020-09-27 Orders Doctor CONNER 1.2.840.114 [id number] 00:00:00 00:00:00 Only Unassigned, LESLEY 350.1.13.10 [facility] 4.2.7.2.686 [id number] [facility] 2020-09-20 2020-09-20 Telephone [facility] 1.2.840.114 [id number] Univers 00:00:00 00:00:00 Shey [facility] 350.1.13.10 it y of Surgical 4.2.7.2.686 Marvel as Specialti [phone] Ak dical es [address] [facility] 2020-09-20 2020-09-20 Telephone [facility] 1.2.840.114 [id number] 00:00:00 00:00:00 Shey [facility] 350.1.13.10 Surgical 4.2.7.2.686 Specialti [id number] es [address] [place] 2020-09-07 2020-09-07 Office [facility] 1.2.356.447 [id number] Univers 09:03:53 09:52:26 Visit Shey Cabral 350.1.13.10 it y of Surgical 4.2.7.2.686 Marvel as Specialti [phone] Ak dical es 198 [facility] 2020-09-07 2020-09-07 Office [facility] 1.2.789.167 [id number] 09:03:53 09:52:26 Visit Shey Lopez [facility] 350.1.13.10 Surgical 4.2.7.2.686 Specialti [id number] es [address] [place] [address] 2020-09-07 2020-09-07 Outpatient [facility] [id number] Univers 09:00:00 09:00:00 SHEY arshad [facility] 2020-08-30 2020-08-30 Outpatient [facility] [id number] Univers 08:30:00 08:30:00 SHEY ity of [facility] 2020-08-20 2020-08-20 Hospital [facility] 1.2.840.114 [id number] Univers 10:11:58 23:59:00 Encounter Health 350.1.13.10 [place] [phone] [facility] [address] [place] ([facility] 2020-08-20 2020-08-20 Outpatient R SANDY [facility] [id number] Univers 10:11:58 23:59:00 ity [facility] 2020-08-16 2020-08-16 [facility] 1.2.840.114 [id number] Univers 00:00:00 00:00:00 [facility] 350.1.13.10 it y of [place] 4.2.7.2.686 Marvel as Professio [phone] [address] Office [address] [facility] 2020-08-02 2020-08-02 Office Care, Ang Primary BRAZORIA 1.2.840 .114 [id number] Univers 10:40:31 12:20:58 Visit Alexandre Delgado [facility] 350.1.13.10 it[place] [id number] [facility] [address] [place] 2020-08-02 2020-08-02 Outpatient R SANDY [facility] [id number] Univers 10:30:00 10:30:00 ity of [facility] 2020-08-02 2020-08-02 Orders Doctor CONNER 1.2.840.114 [id number] Univers 00:00:00 00:00:00 Only Unassigned, LESLEY 350.1.13.10 ity of [facility] 4.2.7.2.686 Marvel as [id number] [address] 2020-05-31 2020-05-31 Outpatient Gracia LAMAR [facility] [id number] Univers 08:50:00 08:50:00 ILIANA ity [facility] 2020-05-24 2020-05-24 Outpatient Gracia DELGADO [facility] [id number] Univers 00:00:00 00:00:00 ity of [facility] 2020-05-22 2020-05-22 Outpatient [facility] [id number] Univers 09:50:00 09:50:00 ILIANA ity [facility] 2020-05-17 2020-05-21 Office Care, Aries GALLEGOS 1.2.840 .114 [id number] Univers 11:05:31 09:49:52 Visit Sandy Alexandre [facility] 350.1.13.10 it[place] [id number] [address] 2020-05-21 2020-05-21 Outpatient R SANDY ALEXANDRE [facility] [id number] Univers 00:00:00 00:00:00 ity [facility] 2020-05-17 2020-05-17 Outpatient R SANDY [facility] [id number] Univers 10:30:00 10:30:00 ity [facility] 2020-05-17 2020-05-17 Orders Doctor PRIETO 1.2.840.114 [id number] Univers 00:00:00 00:00:00 Only Unassigned, LESLEY 350.1.13.10 ity of [facility] 4.2.7.2.686 Marvel as [id number] [address] 2020-05-08 2020-05-08 Outpatient Gr[facility] [id number] Univers 08:30:00 08:30:00 ANNEMARIE magaña [facility] 2020-05-08 2020-05-08 [facility]medici [facility] 1.2.840.114 [id number] Univers 07:05:41 07:35:41 ne Visit Annemarie Pena SPECIALTY 350.1.13.10 [place] [phone] Ak lawrencenargis CARSON Monica[address] [facility] 2020-05-01 2020-05-01 Outpatient Gr[facility] [id number] Univers 09:30:00 09:30:00 ANNEMARIE arshad o gómez [facility] 2020-04-24 2020-04-24 Outpatient [facility] [id number] Univers 09:30:00 09:30:00 ANNEMARIE ity o f [facility] 2020-03-08 2020-03-20 Office Care, Ang Primary ROSY 1.2.840 .114 [id number] Univers 10:02:59 09:15:53 Visit Alexandre Delgado [facility] 350.1.13.10 [place] [id number] [facility] [address] [place] 2020-03-16 2020-03-16 Hospital Alexandre Delgado [facility] 1.2.840.114 [id number] Univers 07:51:00 23:59:00 Encounter [place] 350.1.13.10 [place] [id number] [facility] [address] [place] 2020-03-16 2020-03-16 Outpatient R ALEXANDRE DELGADO [facility] [id number] Univers 00:00:00 00:00:00 ity of [facility] 2020-03-13 2020-03-13 Telephone Alexandre Delgado ROSY 1.2.840.114 [id number] Univers 00:00:00 00:00:00 [facility] 350.1.13.10 [place] [id number] [address] 2020-03-08 2020-03-08 Outpatient R ALEXANDRE DELGADO [facility] [id number] Univers 10:00:00 10:00:00 ity of [facility] 2020-03-08 2020-03-08 Orders Doctor CONNER 1.2.840.114 [id number] Univers 00:00:00 00:00:00 Only Unassigned, L[place] 350.1.13.10 ity of [facility] 4.2.7.2.686 Marvel as [phone] [facility] [address] 2020-02-29 2020-02-29 Telephone Bethany Delgadoteodora GALLEGOS 1.2.840.114 [id number] Univers 00:00:00 00:00:00 [facility] 350.1.13.10 [place] [id number] [facility] [address] [place] 2020-02-14 2020-02-14 Telephone [facility] 1.2.215.868 [id number] Univers 00:00:00 00:00:00 Dannie Christy 350.1.13.10 [place] [id number] [place] 716969 [facility] 2020-02-10 2020-02-10 Outpatient R [facility] [id number] Univers 09:00:00 09:00:00 ity of [facility] 2020-02-10 2020-02-10 Orders Doctor PRIETO 1.2.840.114 [id number] Univers 00:00:00 00:00:00 Only Unassigned, LESLEY 350.1.13.[address] [facility] 4.2.7.2.686 [place] as [id number] [facility] [address] [place] 2020-01-24 2020-01-24 Out[facility] [id number] Univers 10:40:00 10:40:00 DANNIE tafoyay o f [facility] 2020-01-24 2020-01-24 Telemedici [facility] 1.2.840.114 [id number] Univers 07:57:10 08:17:10 ne Visit Dannie [place] 350.1.13.10 ity [facility] [place] [phone] [address] 2020-01-18 2020-01-18 Outpatient R [facility] [id number] Univers 13:00:00 13:00:00 ity [facility] 2019-11-10 2019-11-10 Telephone Alexandre Delgado 1.2.840.114 [id number] Univers 00:00:00 00:00:00 [facility] 350.1.13.10 it y of [facility] [place] [id number] [facility] [address] [place] 2019-11-03 2019-11-03 Outpatient R ALEXANDRE DELGADO [facility] [id number] Univers 08:15:00 08:15:00 ity [facility] 2019-10-25 2019-10-25 [facility] 1.2.840.114 [id number] Univers 08:48:06 09:27:18 Visit Annemarie [place] 350.1.13.10 [place] [phone] Ak dicnargis [facility] [address] [facility] 2019-10-25 2019-10-25 Outpatient R DAJUAN [facility] [id number] Univers 09:00:00 09:00:00 ANNEMARIE magaña [facility] 2019-10-24 2019-10-24 [facility] 1.2.840.114 [id number] Univers 10:57:17 15:44:20 Visit Dannie Christy 350.1.13.10 [place] [phone] Ak lawrencenargis nal 059 [facility] 2019-10-24 2019-10-24 Outpatient [facility] [id number] Univers 11:00:00 11:00:00 DANNIE magaña [facility] 2019-09-29 2019-09-29 Office Care, Aries GAL[place] 1.2.840 .114 [id number] Univers 10:38:08 11:16:42 Visit Alexandre Delgado [facility] 350.1.13.10 [place] [phone] [address] 2019-09-29 2019-09-29 Outpatient R ALEXANDRE DELGADO [facility] [id number] Univers 10:00:00 11:16:42 ity of [facility] 2019-09-14 2019-09-14 Telephone Alexandre Delgado ROS[place] 1.2.840.114 [id number] Univers 00:00:00 00:00:00 [facility] 350.1.13.10 [place] [id number] [address] 2019-09-08 2019-09-08 Orders Doctor PRIETO 1.2.840.114 [id number] Univers 00:00:00 00:00:00 Only Unassigned, [place] 350.1.13.10 ity of [facility] 4.2.7.2.686 Marvel as [phone] [address] 2019-05-05 2019-05-05 Telephone Alexandre Delgado 1.2.840.114 [id number] Univers 00:00:00 00:00:00 E [facility] 350.1.13.10 it [phone] [address] [address] 2019-04-28 2019-04-28 Office Care, Aries GALLEGOS 1.2.840 .114 [id number] Univers 09:26:40 11:38:19 Visit Alexandre Delgado [facility] 350.1.13.10 [place] [phone] [place] [address] [address] 2019-04-28 2019-04-28 Orders Doctor CONNER 1.2.840.114 [id number] Univers 00:00:00 00:00:00 Only Unassigned, [place] 350.1.13.10 ity of [facility] 4.2.7.2.686 [place] as [phone] [address] Results Test Description Test Time Test Comments Results Result Comments Source COMP. METABOLIC PANEL (96664) 2023-06-26 17:34:22 Test Item Value Reference Range Interpretation Comme nts NA (test code = 9861451779) 141 mmol/L 135-145 K (test code = 1544492431) 3.6 mmol/L 3.5-5.0 CL (test code = 2317224176) 109 mmol/L 98-108 H CO2 TOTAL (test code = 0427187449) 17 mmol/L 23-31 L AGAP (test code = 5742167676) 15 2-16 BUN (test code = 3788928243) 6 mg/dL 7-23 L GLUCOSE (test code = 6105937380) 85 mg/dL 70-110 CREATININE (test code = 0.67 mg/dL 0.50-1.04 7781575094) TOTAL BILI (test code = 0.6 mg/dL 0.1-1.1 3648295820) CALCIUM (test code = 2310716131) 9.7 mg/dL 8.6-10.6 T PROTEIN (test code = 2400449075) 8.8 g/dL 6.3-8.2 H ALBUMIN (test code = 8600304620) 4.5 g/dL 3.5-5.0 ALK PHOS (test code = 7522807257) 65 U/L 34-122 ALTv (test code = 1742-6) 14 U/L 5-35 AST(SGOT) (test code = 7686423832) 20 U/L 13-40 eGFR (test code = 4032168244) 103.3 mL/min/1.73m2 INES (test code = INES) Association of Glomerular Filtration Rate (GFR) and Staging of Kidney Disease* + +-------- + ------+| GFR (mL/min/1.73 m2) ?| With Kidney Damage ?| ?Without Kidney Damage+ +-- + +| ?>90 ?| ?Stage one ?| ? Normal ?+ +------- + -------+| ?60-89 ?| ?Stage two ?| ? Decreased GFR ? + +-------- + ------+| ?30-59 ?| ?Stage three ?| ? Stage three ? + +-------- + ------+| ?15-29 ?| ?Stage four ? | ? Stage four ?+ +------- + -------+| ?<15 (or dialysis) ? ?| ?Stage five ? | ? Stage five ?+ +------- + -------+ *Each stage assumes the associated GFR level has been in effect for at least three months. ?Stages 1 to 5, with or without kidney disease, indicate chronic kidney disease. Notes: Determination of stages one and two (with eGFR >59mL/min/1.73 m2) requires estimation of kidney damage for at least three months as defined by structural or functional abnormalities of the kidney, manifested by either:Pathological abnormalities or Markers of kidney damage (including abnormalities in the composition of the blood or urine or abnormalities in imaging tests). Lab Interpretation (test code = Abnormal 93354-4) [facility] WITH [id number] 17:15:57 Test Item Value Reference Range Interpretation Comments WBC (test code = 6.77 See_Comment [Automated message] 6690-2) The system [employer] generated this result transmitted ref erence range: 4.30 - 1 1.10 10*3/?L. The re ference range was not u sed to interpret this result as normal/abnor mal. RBC (test code = 4.71 See_Comment [Automated message] 789-8) The system [employer] generated this result transmitted ref erence range: 3.93 - 5 .25 10*6/?L. The re ference range was not u sed to interpret this result as normal/abnor mal. HGB (test code = 13.4 g/dL 11.6-15.0 718-7) HCT (test code = 39.7 % 35.7-45.2 4544-3) MCV (test code = 84.3 fL 80.6-95.5 787-2) MCH (test code = 28.5 pg 25.9-32.8 785-6) MCHC (test code = 33.8 g/dL 31.6-35.1 786-4) RDW-SD (test code 39.8 fL 39.0-49.9 = 59842-3) RDW-CV (test code 13.0 % 12.0-15.5 = 788-0) PLT (test code = 265 See_Comment [Automated message] 777-3) The system [employer] generated this result transmitted ref erence range: 166 - 35 8 10*3/?L. The re ference range was not u sed to interpret this result as normal/abnor mal. MPV (test code = 11.0 fL 9.5-12.9 11440-8) NRBC/100 WBC (test 0.0 See_Comment [Automat ed message] code = 0980583976) The syste [employer] which generated this result transmitted ref erence range: 0.0 - 10 .0 /100 WBCs. The refer ence range was not u sed to interpret this result as normal/abnor mal. NRBC x10^3 (test See_Comment [Automated message] code = 0812308989) The syste m which generated this result transmitted ref erence range: 10*3/?L. The reference range was not used to interpr et this result as normal/abnormal . GRAN MAT (NEUT) % 61.8 % (test code = 770-8) IMM GRAN % (test 0.30 % code = 1791354797) LYMPH % (test code 27.3 % = 736-9) MONO % (test code 5.8 % = 5905-5) EOS % (test code = 4.4 % 713-8) BASO % (test code 0.4 % = 706-2) GRAN MAT 4.18 10*3/uL 1.88-7.09 x10^3(ANC) (test code = 8387136233) IMM GRAN x10^3 0.00-0.06 (test code = 9799961103) LYMPH x10^3 (test 1.85 10*3/uL 1.32-3.29 code = 731-0) MONO x10^3 (test 0.39 10*3/uL 0.33-0.92 code = 742-7) EOS x10^3 (test 0.30 10*3/uL 0.03-0.39 code = 711-2) BASO x10^3 (test 0.03 10*3/uL 0.01-0.07 code = 704-7) [facility] [id number] 14:30:07 Test Item Value Reference Range Interpretation Comments NEUTROPHILS - REL (DIFF) (BEAKER) 54 % (test code = 1359) LYMPHOCYTES - REL (DIFF) (BEAKER) 7 % (test code = 1360) MONOCYTES - REL (DIFF) (BEAKER) 4 % (test code = 1361) EOSINOPHILS - REL (DIFF) (BEAKER) 10 % (test code = 1362) BANDS - REL (DIFF) (BEAKER) (test 1 % 0-10 code = 1348) ATYPICAL LYMPHOCYTE - REL (DIFF) 24 % 0-0 H (BEAKER) (test code = 260) NEUTROPHILS - ABS (DIFF) (BEAKER) 4.48 K/ L 1.80-8.00 (test code = 1365) LYMPHOCYTES - ABS (DIFF) (BEAKER) 0.58 K/ L 1.48-4.50 L (test code = 1366) MONOCYTES - ABS (DIFF) (BEAKER) 0.33 K/ L 0.00-1.30 (test code = 1367) EOSINOPHILS - ABS (DIFF) (BEAKER) 0.83 K/ L 0.00-0.50 H (test code = 1368) BANDS-ABS (DIFF) (BEAKER) (test 0.1 K/ L 0.0-0.8 code = 1349) ATYPICAL LYMPHOCYTES - ABS (DIFF) 1.99 K/ L 0.00-0.00 H (BEAKER) (test code = 263) TOTAL COUNTED (BEAKER) (test code = 100 1351) BANDS + SEGMENTED NEUTROPHILS 4.57 (BEAKER) (test code = 1352) WBC MORPHOLOGY (BEAKER) (test code Normal = 487) PLT MORPHOLOGY (BEAKER) (test code Normal = 486) RBC MORPHOLOGY (BEAKER) (test code Normal = 762) CBC W/PLT COUNT & AUTO [id number] 14:30:06 Test Item Value Reference Range Interpretation [...] PERCENT (BEAKER) (test code = 2801) TROPONIN [id number] 14:12:53 Test Item Value Reference Range Interpretation [...] failure, acidosis, acute neurological disease, and persistent tachyarrhythmia.Electrocardiograph Repairer ID - DSENSONCOMPREHENSIVE METABOLIC [id number] 14:10:56 Test Item Value Reference Range Interpretation [...] eGF R is based on the CKD-EPI 2021 equation that d oes not use a race coefficientEsti mated GFR is not as accur ate as Creatinine Sharon thee in predicting glom erular filtration rate . Estimated GFR is not appl icable for dialysis patien ts Electrocardiograph Repairer ID - DSENSONOperator ID - DSENSONOperator ID - DSENSONOperator ID - DSENSONOperator ID - DSENSONOperator ID - DSENSONOperator ID - DSENSONOperator ID - DSENSONOperator ID - DSENSONOperator ID - DSENSONOperator ID - DSENSONOperator ID - DSENSONOperator ID - DSENSONOperator ID - DSENSONOperatorID - DSENSONOperator ID - DSENSONOperator ID - DSENSONOperator ID - DSENSONOperator ID - DSENSONPROTHROMBIN TIME/[id number] 14:03:14 Test Item Value Reference Range Interpretation Comments PROTIME (BEAKER) 10.3 seconds 9.3-12.0 Final Infor mation (test code = 759) (Auto Outp ut) INR (BEAKER) (test 0.96 See_Comment Final Inf ormation code = 370) (Auto Output) [Automated mess age] The system [employer] generated this result transmitted ref erence range: <=5.90. The reference range was not used to int erpret this result as normal/abnormal . RECOMMENDED COUMADIN/WARFARIN INR THERAPY RANGESSTANDARD DOSE: 2.0 - 3.0 Includes: PROPHYLAXIS for venous thrombosis, systemic embolization; TREATMENT for venous thrombosis and/or pulmonary embolus.HIGH RISK: Target INR is 2.5-3.5 for patients with mechanical heart valves.CT BRAIN WITHOUT IV [id number] 12:52:28[facility] : 1995 Sex: FCT BRAIN [...] Signed By: Krystle Quiroz04/16/2023 12:54 CDTWorkstation Name: [id number] w/Microscopic + Reflex to Culture 2023-04-16 12:27:52 Test Item Value Reference Range Interpretation Comments Color, UA (test Yellow code = 5778-6) Clarity, UA (test Slightly Cloudy code = 5767-9) Specific [place], 1.001-1.035 UA (test code = 5811-5) pH, UA (test code = 6.0 5.0-8.0 5803-2) Protein, UA (test Negative Negative code = 88750-7) Glucose, UA (test Negative Negative code = 365) Ketones, UA (test Negative Negative code = 2514-8) Bilirubin, UA (test Negative Negative code = 51118-0) Blood, UA (test Negative Negative code = 39566-1) Nitrite, UA (test Negative Negative code = 5802-4) Leukocytes, UA Negative Negative (test code = 5799-2) Urobilinogen, UA 0.2 (test code = 19729-3) Bacteria, UA (test Few code = 45029-9) Mucus (test code = Few 8247-9) Ca Oxalate Lilly, UA Moderate (test code = 11883-0) RBC, UA (test code <5 See_Comment [Automat ed = 799-7) message] The sy stem which generated this result transmitted reference range : /HPF. The refer ence range was not u sed to interpret th is result as normal/abnormal . WBC, UA (test code <5 See_Comment [Automat ed = 60075-2) message] The sy stem which generated this result transmitted reference range : /HPF. The refer ence range was not u sed to interpret th is result as normal/abnormal . SQUAMOUS EPITHELIAL <5 See_Comment [Automa inge (test code = message] The sy stem 17490-2) which generated this result transmitted reference range : /HPF. The refer ence range was not u sed to interpret th is result as normal/abnormal . Specimen Source (test code = 2795) [facility] 2023-04-16 12:27:52 Test Item Value Reference Range Interpretation Comments Color, UA (test Yellow code = 5778-6) Clarity, UA (test Slightly Cloudy code = 5767-9) Specific [place], 1.001-1.035 UA (test code = 5811-5) pH, UA (test code = 6.0 5.0-8.0 5803-2) Protein, UA (test Negative Negative code = 75989-1) Glucose, UA (test Negative Negative code = 365) Ketones, UA (test Negative Negative code = 2514-8) Bilirubin, UA (test Negative Negative code = 44821-8) Blood, UA (test Negative Negative code = 00997-2) Nitrite, UA (test Negative Negative code = 5802-4) Leukocytes, UA Negative Negative (test code = 5799-2) Urobilinogen, UA 0.2 (test code = 08709-9) Bacteria, UA (test Few code = 72003-5) Mucus (test code = Few 8247-9) Ca Oxalate Lilly, UA Moderate (test code = 50987-2) RBC, UA (test code <5 See_Comment [Automat ed = 799-7) message] The sy stem which generated this result transmitted reference range : /HPF. The refer ence range was not u sed to interpret th is result as normal/abnormal . WBC, UA (test code <5 See_Comment [Automat ed = 57752-5) message] The sy stem which generated this result transmitted reference range : /HPF. The refer ence range was not u sed to interpret th is result as normal/abnormal . SQUAMOUS EPITHELIAL <5 See_Comment [Automa inge (test code = message] The sy stem 55054-8) which generated this result transmitted reference range : /HPF. The refer ence range was not u sed to interpret th is result as normal/abnormal . Specimen Source (test code = 2795) [facility] UR[facility] [id number] 12:27:52 Test Item Value Reference Range Interpretation [...] (test code = 2795) Rapid drug screen, [id number] 12:19:24 Test Item Value Reference Range Interpretation Comments Barbiturate Screen Negative Negative (test code = 20103-6) Benzodiazepine Screen Positive Negative A (test code = 00387-9) Cocaine (Metab.) Negative Negative Screen (test code = 3397-7) Methadone Screen (test Negative Negative code = 13926-4) Opiate Screen (test Negative Negative code = 47405-3) Cannabinoid Screen Positive Negative A (test code = 88996-1) Amph/Methamph Screen Negative Negative (test code = 36491-0) Phencyclidine Screen Negative Negative (test code = 03365-3) pH, UA (test code = 6.0 5.0-8.0 5803-2) INES (test code = INES) DRUG CUTOFF CONC.Cocaine 300 ng/mL Cannabinoid 50 ng/mLBenzodiazepine 200 ng/mLBarbiturate 200 ng/mLPhencyclidine 25 ng/mLOpiate 300 ng/mLMethadone 300 ng/mLAmphetamine/ 1000 ng/mL Methamphetamine This assay provides an unconfirmed qualitative test result for the clinical management of patients in emergency situations. Chain of custody not maintained. Some kbwb-pvh-plbxnlv medications, as well as adulterants, may cause inaccurate results. Clinical correlation should be applied. A more comprehensive drug screen or confirmation of a detected drug may be performed upon request.Electrocardiograph Repairer ID - DSENSONOperator ID - DSENSONOperator ID - DSENSONOperator ID - DSENSONOperator ID - DSENSONOperator ID - DSENSONOperator ID - DSENSONOperator ID - DSENSON Lab Interpretation Abnormal (test code = 53435-3) [facility], [id number] 12:19:24 Test Item Value Reference Range Interpretation Comments Barbiturate Screen Negative Negative (test code = 50411-9) Benzodiazepine Screen Positive Negative A (test code = 78792-7) Cocaine (Metab.) Negative Negative Screen (test code = 3397-7) Methadone Screen (test Negative Negative code = 22421-3) Opiate Screen (test Negative Negative code = 88923-0) Cannabinoid Screen Positive Negative A (test code = 60835-8) Amph/Methamph Screen Negative Negative (test code = 25500-6) Phencyclidine Screen Negative Negative (test code = 15883-6) pH, UA (test code = 6.0 5.0-8.0 5803-2) INES (test code = INES) DRUG CUTOFF CONC.Cocaine 300 ng/mL Cannabinoid 50 ng/mLBenzodiazepine 200 ng/mLBarbiturate 200 ng/mLPhencyclidine 25 ng/mLOpiate 300 ng/mLMethadone 300 ng/mLAmphetamine/ 1000 ng/mL Methamphetamine This assay provides an unconfirmed qualitative test result for the clinical management of patients in emergency situations. Chain of custody not maintained. Some pozj-kuu-ixmjvsm medications, as well as adulterants, may cause inaccurate results. Clinical correlation should be applied. A more comprehensive drug screen or confirmation of a detected drug may be performed upon request.Electrocardiograph Repairer ID - DSENSONOperator ID - DSENSONOperator ID - DSENSONOperator ID - DSENSONOperator ID - DSENSONOperator ID - DSENSONOperator ID - DSENSONOperator ID - DSENSON Lab Interpretation Abnormal (test code = 68105-7) [facility], [id number] 12:19:24 Test Item Value Reference Range Interpretation [...] ng/mLOpiate 300 ng/mLMethadone 300 ng/mLAmphetamine/ 1000 ng/mL MethamphetamineThisassay provides an unconfirmed qualitative test result for the clinical management of patients in emergency situations. Chain of custody not maintained. Some hudf-uze-wcurkfr medications, as well as adulterants, may cause inaccurate results. Clinical correlation should be applied. A more comprehensive drug screen or confirmation of a detected drug may be performed upon request.Electrocardiograph Repairer ID - DSENSONOperator ID - DSENSONOperator ID - DSENSONOperator ID - DSENSONOperator ID - DSENSONOperator ID - DSENSONOperator ID - DSENSONOperator ID - DSENSONTSH, THIRD GENERATION 2022-09-11 04:08:38 Test Item Value Reference Range Interpretation Comments TSH, THIRD 2.060 UIU/ML 0.400-4.100 UNLESS OTHERWI SE GENERATION (test INDICATED, ALL TESTING code = 2821) PERFORMED [facility], [id number] [place] [address] DIRECTOR: Tracey COBBIA NUMBER [id number] CAP ACCREDITATION N O. [id number] COMPREHENSIVE METABOLIC [id number] 03:23:31 Test Item Value Reference Range Interpretation Comments GLUCOSE (test code = 80 MG/DL 70-99 2216) BUN (test code = 7 MG/DL -2207) CREATININE (test 0.55 MG/DL 0.60-1.30 L code = 2214) eGFR (2020 CKD-EPI) 127 >60 (test code = 67871) ML/MIN/1.73 CALC BUN/CREAT (test 13 RATIO - code = 2235) SODIUM (test code = 138 MEQ/L 103-437 3529) POTASSIUM (test code 3.9 MEQ/L 3.5-5.4 = [...] U/L 5-40 2218) CBC W/AUTO DIFF WITH [id number] 02:00:05 Test Item Value Reference Range Interpretation [...] RBCS 0.00 K/UL 0.00-0.11 (test code = 48587) CT/NG, NAAT, [id number] 20:52:50 Test Item Value Reference Range Interpretation Comments GONORRHEA, NAAT NEGATIVE NEGATIVE Note: Testi ng is (test code = 13439) performe d with [employer] EDEL 6800/8800 systems using real-time polymerase cali n reaction (PCR) method. CHLAMYDIA, NAAT NEGATIVE NEGATIVE Note: Testi ng is (test code = 33296) performe d with [employer] EDEL 6800/8800 systems using real-time polymerase cali n reaction (PCR) method. HEPATITIS PANEL, [id number] 05:02:20 Test Item Value Reference Range Interpretation Comments HEPATITIS A IgM (test NON-REACTIVE NON-REACTIVE code = 20776) HEPATITIS B CORE IgM NON-REACTIVE NON-REACTIVE (test code = 4644) HEPATITIS B SURF AG NON-REACTIVE NON-REACTIVE (test code = 2739) HEPATITIS C ANTIBODY NON-REACTIVE NON-REACTIVE (test code = 4675) INTERPRETATION (NOTE) Hepatitis A HEPATITIS A: (test code sero logy shows no = 1670) evidence of acu te hepatitis A. INTERPRETATION (NOTE) Hepatitis B HEPATITIS B: (test code sero logy shows no = 44559) evidence of acu te hepatitis B and no indication of exposure to hepatitis B vir us in the previous alejandra eight months. INTERPRETATION (NOTE) Hepatitis C HEPATITIS C: (test code sero logy shows no = 03892) evidence of exposure to hepatitisC viru s at this time. I t can take up to 12 months after exposure tothe hepatitis C vir us for antibodies to become detectab le in the blood in certain patient s. HIV 1/2 4TH GEN, RFLX [id number] 05:02:20 Test Item Value Reference Range Interpretation Comments HIV 1/2 4TH GEN, NON-REACTIVE NON-REACTIVE UNLESS OTH ERWISE RFLX CONF (test INDICATED, A LL TESTING code = 3514) PERFORMED [facility] NICAL PATHOLOGY [employer], [employer]. [address] [place] [id number] [place] [address] DIRECTOR: AZ AGUIRRE M.D. [place] NUMBER [id number] CAP ACCREDITATION N O. [id number] RPR REFLEX TO T. PALLIDUM - [id number] 04:28:08 Test Item Value Reference Range Interpretation Comments RPR (test code = 12788) NON-REACTIVE NON-REACTIVE RPR TITER (test code = 3500) NOT INDIC. TITER NOT INDIC. CT/NG, TMA, [id number] 00:00:00 Test Item Value Reference Range Interpretation Comments GONORRHEA, NAAT (test code = 13498) NEGATIVE CHLAMYDIA, NAAT (test code = 16500) NEGATIVE CT/NG, TMA, [id number] 00:00:00 Test Item Value Reference Range Interpretation Comments GONORRHEA, NAAT (test code = 37739) NEGATIVE CHLAMYDIA, NAAT (test code = 23096) NEGATIVE RPR REFLEX TO T. PALLIDUM - [id number] 00:00:00 Test Item Value Reference Range Interpretation Comments RPR (test code = 15821) NON-REACTIVE RPR TITER (test code = 3500) NOT INDIC. TITER RPR REFLEX TO T. PALLIDUM - [id number] 00:00:00 Test Item Value Reference Range Interpretation Comments RPR (test code = 03328) NON-REACTIVE RPR TITER (test code = 3500) NOT INDIC. TITER ACUTE HEPATITIS [id number] 00:00:00 Test Item Value Reference Range Interpretation Comments HEPATITIS A IgM (test code = NON-REACTIVE 47005) HEPATITIS B CORE IgM (test code NON-REACTIVE = 4644) HEPATITIS B SURF AG (test code = NON-REACTIVE 2739) HEPATITIS C ANTIBODY (test code NON-REACTIVE = 4675) INTERPRETATION HEPATITIS A: (NOTE) (test code = 2552) INTERPRETATION HEPATITIS B: (NOTE) (test code = 00269) INTERPRETATION HEPATITIS C: (NOTE) (test code = 21040) ACUTE HEPATITIS [id number] 00:00:00 Test Item Value Reference Range Interpretation Comments HEPATITIS A IgM (test code = NON-REACTIVE 95230) HEPATITIS B CORE IgM (test code NON-REACTIVE = 4644) HEPATITIS B SURF AG (test code = NON-REACTIVE 2739) HEPATITIS C ANTIBODY (test code NON-REACTIVE = 4675) INTERPRETATION HEPATITIS A: (NOTE) (test code = 2552) INTERPRETATION HEPATITIS B: (NOTE) (test code = 68961) INTERPRETATION HEPATITIS C: (NOTE) (test code = 90497) HIV 1/2 4TH GEN, RFLX [id number] 00:00:00 Test Item Value Reference Range Interpretation Comments HIV 1/2 4TH GEN, RFLX CONF (test NON-REACTIVE code = 3514) HIV 1/2 4TH GEN, RFLX [id number] 00:00:00 Test Item Value Reference Range Interpretation Comments HIV 1/2 4TH GEN, RFLX CONF (test NON-REACTIVE code = 3514) VITAMIN D, 25 [id number] 03:25:23 Test Item Value Reference Range Interpretation [...] PERFORM ED [facility], I [place]. [address] [place] [address] LABORATORY DIRE CTOR: Rebeca COBB. CLIA NUMBER [id number] [facility] ACCREDITATION N O. [id number] HIV 1/2 4TH GEN, RFLX [id number] 03:00:39 Test Item Value Reference Range Interpretation Comments HIV 1/2 4TH GEN, RFLX CONF (test NON-REACTIVE NON-REACTIVE code = 3514) HIV AB/AG COMBO RFLX [id number] 00:00:00 Test Item Value Reference Range Interpretation Comments HIV 1/2 4TH GEN, RFLX CONF (test NON-REACTIVE code = 3514) HIV AB/AG COMBO RFLX [id number] 00:00:00 Test Item Value Reference Range Interpretation Comments HIV 1/2 4TH GEN, RFLX CONF (test NON-REACTIVE code = 3514) VITAMIN D, 25 [id number] 00:00:00 Test Item Value Reference Range Interpretation Comments VITAMIN D, 25 OH (test code = 4958) 27 NG/ML VITAMIN D, 25 [id number] 00:00:00 Test Item Value Reference Range Interpretation Comments VITAMIN D, 25 OH (test code = 4958) 27 NG/ML HIV AB/AG COMBO RFLX [id number] 00:00:00 Test Item Value Reference Range Interpretation Comments HIV 1/2 4TH GEN, RFLX CONF (test NON-REACTIVE code = 3514) HIV AB/AG COMBO RFLX [id number] 00:00:00 Test Item Value Reference Range Interpretation Comments HIV 1/2 4TH GEN, RFLX CONF (test NON-REACTIVE code = 3514) VITAMIN D, 25 [id number] 00:00:00 Test Item Value Reference Range Interpretation Comments VITAMIN D, 25 OH (test code = 4958) 27 NG/ML VITAMIN D, 25 [id number] 00:00:00 Test Item Value Reference Range Interpretation Comments VITAMIN D, 25 OH (test code = 4958) 27 NG/ML HIV AB/AG COMBO RFLX [id number] 00:00:00 Test Item Value Reference Range Interpretation Comments HIV 1/2 4TH GEN, RFLX CONF (test NON-REACTIVE code = 3514) HIV AB/AG COMBO RFLX [id number] 00:00:00 Test Item Value Reference Range Interpretation Comments HIV 1/2 4TH GEN, RFLX CONF (test NON-REACTIVE code = 3514) VITAMIN D, 25 [id number] 00:00:00 Test Item Value Reference Range Interpretation Comments VITAMIN D, 25 OH (test code = 4958) 27 NG/ML VITAMIN D, 25 [id number] 00:00:00 Test Item Value Reference Range Interpretation Comments VITAMIN D, 25 OH (test code = 4958) 27 NG/ML TSH, THIRD [id number] 00:19:50 Test Item Value Reference Range Interpretation Comments TSH, THIRD GENERATION (test code 1.090 UIU/ML 0.400-4.100 = 2821) [id number] 00:00:00 Test Item Value Reference Range Interpretation Comments TSH, THIRD GENERATION (test code 1.090 UIU/ML = 2821) [id number] 00:00:00 Test Item Value Reference Range Interpretation Comments TSH, THIRD GENERATION (test code 1.090 UIU/ML = 2821) [id number] 00:00:00 Test Item Value Reference Range Interpretation Comments TSH, THIRD GENERATION (test code 1.090 UIU/ML = 2821) [id number] 00:00:00 Test Item Value Reference Range Interpretation Comments TSH, THIRD GENERATION (test code 1.090 UIU/ML = 2821) [id number] 00:00:00 Test Item Value Reference Range Interpretation Comments TSH, THIRD GENERATION (test code 1.090 UIU/ML = 2821) [id number] 00:00:00 Test Item Value Reference Range Interpretation Comments TSH, THIRD GENERATION (test code 1.090 UIU/ML = 2821) [id number] 00:00:00 Test Item Value Reference Range Interpretation Comments TSH, THIRD GENERATION (test code 1.090 UIU/ML = 2821) [id number] 00:00:00 Test Item Value Reference Range Interpretation Comments TSH, THIRD GENERATION (test code 1.090 UIU/ML = 2821) [id number] 00:00:00 Test Item Value Reference Range Interpretation Comments TSH, THIRD GENERATION (test code 1.090 UIU/ML = 2821) LIPID [id number] 23:59:41 Test Item Value Reference Range Interpretation [...] MOREINFORMATION , SEE CLIENT ANNOUNCE MENT AT [email or web address] RISK RATIO LDL/HDL 1.79 RATIO <3.22 (test code = 2238) COMPREHENSIVE METABOLIC [id number] 23:59:41 Test Item Value Reference Range Interpretation Comments GLUCOSE (test code = 77 MG/DL 70-99 2216) BUN (test code = 8 MG/DL 6-20 2207) CREATININE (test 0.67 MG/DL 0.60-1.30 EFFECTIVE code = 2214) 08/12/2021, [facility] HAS IMPLEMENTED THE NKF-ASN RECOMME NDED KD-EPI EGF R REFIT CALCULATI ON THAT DOES NOT INCLUDE A COEFFICIENT FOR RACE. FOR MORE INFORMATION, SE E ANNOUNCEMENT [email or web address] eGFR (2020 CKD-EPI) 122 >60 (test code = 85785) ML/MIN/1.73 CALC BUN/CREAT (test 12 RATIO 6-28 code = 2235) SODIUM (test code = 141 MEQ/L 086-202 5959) POTASSIUM (test code 4.0 MEQ/L 3.5-5.4 = [...] = 92 U/L 5-40 H 2218) HEMOGLOBIN [id number] 03:14:31 Test Item Value Reference Range Interpretation Comments HEMOGLOBIN A1c (test code = 45263) 6.0 % 4.2-5.6 H CBC W/AUTO DIFF WITH [id number] 03:06:02 Test Item Value Reference Range Interpretation [...] RBCS 0.00 K/UL 0.00-0.11 (test code = 67366) CBC W/AUTO [id number] 00:00:00 Test Item Value Reference Range Interpretation [...] NUCLEATED RBCS (test code = 0.00 K/UL 80174) CBC W/AUTO [id number] 00:00:00 Test Item Value Reference Range Interpretation [...] NUCLEATED RBCS (test code = 0.00 K/UL 83393) CBC W/AUTO [id number] 00:00:00 Test Item Value Reference Range Interpretation [...] NUCLEATED RBCS (test code = 0.00 K/UL 84849) HEMOGLOBIN [id number] 00:00:00 Test Item Value Reference Range Interpretation Comments HEMOGLOBIN A1c (test code = 97276) 6.0 % HEMOGLOBIN [id number] 00:00:00 Test Item Value Reference Range Interpretation Comments HEMOGLOBIN A1c (test code = 42943) 6.0 % HEMOGLOBIN [id number] 00:00:00 Test Item Value Reference Range Interpretation Comments HEMOGLOBIN A1c (test code = 65107) 6.0 % LIPID [id number] 00:00:00 Test Item Value Reference Range Interpretation Comments CHOLESTEROL (test code = 2210) 124 MG/DL TRIGLYCERIDES (test code = 2232) 69 MG/DL HDL CHOLESTEROL (test code = 2220) 39 MG/DL CALC LDL CHOL (test code = 2237) 70 MG/DL RISK RATIO LDL/HDL (test code = 1.79 RATIO 2238) LIPID [id number] 00:00:00 Test Item Value Reference Range Interpretation Comments CHOLESTEROL (test code = 2210) 124 MG/DL TRIGLYCERIDES (test code = 2232) 69 MG/DL HDL CHOLESTEROL (test code = 2220) 39 MG/DL CALC LDL CHOL (test code = 2237) 70 MG/DL RISK RATIO LDL/HDL (test code = 1.79 RATIO 2238) COMPREHENSIVE METABOLIC [id number] 00:00:00 Test Item Value Reference Range Interpretation Comments GLUCOSE (test code = 2217) 77 MG/DL BUN (test code = 2208) 8 MG/DL CREATININE (test code = 2214) 0.67 MG/DL eGFR (2020 CKD-EPI) (test 122 ML/MIN/1.73 code = 79207) CALC BUN/CREAT (test code = 12 RATIO [...] code = 2219) 92 U/L COMPREHENSIVE METABOLIC [id number] 00:00:00 Test Item Value Reference Range Interpretation Comments GLUCOSE (test code = 2217) 77 MG/DL BUN (test code = 2208) 8 MG/DL CREATININE (test code = 2214) 0.67 MG/DL eGFR (2020 CKD-EPI) (test 122 ML/MIN/1.73 code = 43002) CALC BUN/CREAT (test code = 12 RATIO [...] code = 2219) 92 U/L CBC W/AUTO [id number] 00:00:00 Test Item Value Reference Range Interpretation [...] NUCLEATED RBCS (test code = 0.00 K/UL 27237) CBC W/AUTO [id number] 00:00:00 Test Item Value Reference Range Interpretation [...] NUCLEATED RBCS (test code = 0.00 K/UL 71635) CBC W/AUTO [id number] 00:00:00 Test Item Value Reference Range Interpretation [...] NUCLEATED RBCS (test code = 0.00 K/UL 79613) CBC W/AUTO [id number] 00:00:00 Test Item Value Reference Range Interpretation [...] NUCLEATED RBCS (test code = 0.00 K/UL 95848) HEMOGLOBIN [id number] 00:00:00 Test Item Value Reference Range Interpretation Comments HEMOGLOBIN A1c (test code = 23745) 6.0 % HEMOGLOBIN [id number] 00:00:00 Test Item Value Reference Range Interpretation Comments HEMOGLOBIN A1c (test code = 34198) 6.0 % HEMOGLOBIN [id number] 00:00:00 Test Item Value Reference Range Interpretation Comments HEMOGLOBIN A1c (test code = 12795) 6.0 % LIPID [id number] 00:00:00 Test Item Value Reference Range Interpretation Comments CHOLESTEROL (test code = 2210) 124 MG/DL TRIGLYCERIDES (test code = 2232) 69 MG/DL HDL CHOLESTEROL (test code = 2220) 39 MG/DL CALC LDL CHOL (test code = 2237) 70 MG/DL RISK RATIO LDL/HDL (test code = 1.79 RATIO 2238) LIPID [id number] 00:00:00 Test Item Value Reference Range Interpretation Comments CHOLESTEROL (test code = 2210) 124 MG/DL TRIGLYCERIDES (test code = 2232) 69 MG/DL HDL CHOLESTEROL (test code = 2220) 39 MG/DL CALC LDL CHOL (test code = 2237) 70 MG/DL RISK RATIO LDL/HDL (test code = 1.79 RATIO 2238) COMPREHENSIVE METABOLIC [id number] 00:00:00 Test Item Value Reference Range Interpretation Comments GLUCOSE (test code = 2217) 77 MG/DL BUN (test code = 2208) 8 MG/DL CREATININE (test code = 2214) 0.67 MG/DL eGFR (2020 CKD-EPI) (test 122 ML/MIN/1.73 code = 49111) CALC BUN/CREAT (test code = 12 RATIO [...] code = 2219) 92 U/L COMPREHENSIVE METABOLIC [id number] 00:00:00 Test Item Value Reference Range Interpretation Comments GLUCOSE (test code = 2217) 77 MG/DL BUN (test code = 2208) 8 MG/DL CREATININE (test code = 2214) 0.67 MG/DL eGFR (2020 CKD-EPI) (test 122 ML/MIN/1.73 code = 09508) CALC BUN/CREAT (test code = 12 RATIO [...] code = 2219) 92 U/L CBC W/AUTO [id number] 00:00:00 Test Item Value Reference Range Interpretation [...] NUCLEATED RBCS (test code = 0.00 K/UL 54069) CBC W/AUTO [id number] 00:00:00 Test Item Value Reference Range Interpretation [...] NUCLEATED RBCS (test code = 0.00 K/UL 81213) HEMOGLOBIN [id number] 00:00:00 Test Item Value Reference Range Interpretation Comments HEMOGLOBIN A1c (test code = 90924) 6.0 % HEMOGLOBIN [id number] 00:00:00 Test Item Value Reference Range Interpretation Comments HEMOGLOBIN A1c (test code = 06192) 6.0 % HEMOGLOBIN [id number] 00:00:00 Test Item Value Reference Range Interpretation Comments HEMOGLOBIN A1c (test code = 78540) 6.0 % LIPID [id number] 00:00:00 Test Item Value Reference Range Interpretation Comments CHOLESTEROL (test code = 2210) 124 MG/DL TRIGLYCERIDES (test code = 2232) 69 MG/DL HDL CHOLESTEROL (test code = 2220) 39 MG/DL CALC LDL CHOL (test code = 2237) 70 MG/DL RISK RATIO LDL/HDL (test code = 1.79 RATIO 2238) LIPID [id number] 00:00:00 Test Item Value Reference Range Interpretation Comments CHOLESTEROL (test code = 2210) 124 MG/DL TRIGLYCERIDES (test code = 2232) 69 MG/DL HDL CHOLESTEROL (test code = 2220) 39 MG/DL CALC LDL CHOL (test code = 2237) 70 MG/DL RISK RATIO LDL/HDL (test code = 1.79 RATIO 2238) COMPREHENSIVE METABOLIC [id number] 00:00:00 Test Item Value Reference Range Interpretation Comments GLUCOSE (test code = 2217) 77 MG/DL BUN (test code = 2208) 8 MG/DL CREATININE (test code = 2214) 0.67 MG/DL eGFR (2020 CKD-EPI) (test 122 ML/MIN/1.73 code = 73894) CALC BUN/CREAT (test code = 12 RATIO [...] code = 2219) 92 U/L COMPREHENSIVE METABOLIC [id number] 00:00:00 Test Item Value Reference Range Interpretation Comments GLUCOSE (test code = 2217) 77 MG/DL BUN (test code = 2208) 8 MG/DL CREATININE (test code = 2214) 0.67 MG/DL eGFR (2020 CKD-EPI) (test 122 ML/MIN/1.73 code = 93260) CALC BUN/CREAT (test code = 12 RATIO 5) SODIUM (test code = 2231) 141 MEQ/L [...] 2219) 92 U/L MR KNEE LEFT WO [id number] 21:23:01 Stable MRI with lateral patellar subluxation [...] present. No suprapatellar joint effusion is present. Rebeca GRAVES:Medial meniscus: Intact Lateral meniscus: Intact LIGAMENTS AND [...] reviewed this study and agree with the abovereport.[facility] 2020-03-16 13:46:56 [...] thePA view. No fracture is appreciated.IMPRESSIONLarge effusion.No fracture.[facility], [id number] 00:00:00 Test Item Value Reference Range Interpretation Comments HCG, QUANTITATIVE (test code = <5 MIU/ML 2506) HCG, [id number] 00:00:00 Test Item Value Reference Range Interpretation Comments HCG, QUANTITATIVE (test code = <5 MIU/ML 2506) HCG, [id number] 00:00:00 Test Item Value Reference Range Interpretation Comments HCG, QUANTITATIVE (test code = <5 MIU/ML 2506) HCG, [id number] 00:00:00 Test Item Value Reference Range Interpretation Comments HCG, QUANTITATIVE (test code = <5 MIU/ML 2506) HCG, [id number] 00:00:00 Test Item Value Reference Range Interpretation Comments HCG, QUANTITATIVE (test code = <5 MIU/ML 2506) HCG, [id number] 00:00:00 Test Item Value Reference Range Interpretation Comments HCG, QUANTITATIVE (test code = <5 MIU/ML 2506) HCG, [id number] 00:00:00 Test Item Value Reference Range Interpretation Comments HCG, QUANTITATIVE (test code = <5 MIU/ML 2506) HCG, [id number] 00:00:00 Test Item Value Reference Range Interpretation Comments HCG, QUANTITATIVE (test code = <5 MIU/ML 2506) HCG, [id number] 00:00:00 Test Item Value Reference Range Interpretation Comments HCG, QUANTITATIVE (test code = <5 MIU/ML 2506) HCG, [id number] 00:00:00 Test Item Value Reference Range Interpretation Comments HCG, QUANTITATIVE (test TEST NOT PERFORMED code = 2506) MIU/ML HCG, [id number] 00:00:00 Test Item Value Reference Range Interpretation Comments HCG, QUANTITATIVE (test TEST NOT PERFORMED code = 2506) MIU/ML HCG, [id number] 00:00:00 Test Item Value Reference Range Interpretation Comments HCG, QUANTITATIVE (test TEST NOT PERFORMED code = 2506) MIU/ML HCG, [id number] 00:00:00 Test Item Value Reference Range Interpretation Comments HCG, QUANTITATIVE (test TEST NOT PERFORMED code = 2506) MIU/ML HCG, [id number] 00:00:00 Test Item Value Reference Range Interpretation Comments HCG, QUANTITATIVE (test TEST NOT PERFORMED code = 2506) MIU/ML HCG, [id number] 00:00:00 Test Item Value Reference Range Interpretation Comments HCG, QUANTITATIVE (test TEST NOT PERFORMED code = 2506) MIU/ML HCG, [id number] 00:00:00 Test Item Value Reference Range Interpretation Comments HCG, QUANTITATIVE (test TEST NOT PERFORMED code = 2506) MIU/ML HCG, [id number] 00:00:00 Test Item Value Reference Range Interpretation Comments HCG, QUANTITATIVE (test TEST NOT PERFORMED code = 2506) MIU/ML HCG, [id number] 00:00:00 Test Item Value Reference Range Interpretation Comments HCG, QUANTITATIVE (test TEST NOT PERFORMED code = 2506) MIU/ML CHLAMYDIA, AMPLIFIED, [id number] 00:00:00 Test Item Value Reference Range Interpretation Comments CHLAMYDIA, TMA (test code = 64385) NEGATIVE CHLAMYDIA, AMPLIFIED, [id number] 00:00:00 Test Item Value Reference Range Interpretation Comments CHLAMYDIA, TMA (test code = 02812) NEGATIVE GC, AMPLIFIED, [id number] 00:00:00 Test Item Value Reference Range Interpretation Comments GONORRHEA, TMA (test code = 44680) NEGATIVE GC, AMPLIFIED, [id number] 00:00:00 Test Item Value Reference Range Interpretation Comments GONORRHEA, TMA (test code = 34701) NEGATIVE CHLAMYDIA, AMPLIFIED, [id number] 00:00:00 Test Item Value Reference Range Interpretation Comments CHLAMYDIA, TMA (test code = 80899) NEGATIVE CHLAMYDIA, AMPLIFIED, [id number] 00:00:00 Test Item Value Reference Range Interpretation Comments CHLAMYDIA, TMA (test code = 74573) NEGATIVE GC, AMPLIFIED, [id number] 00:00:00 Test Item Value Reference Range Interpretation Comments GONORRHEA, TMA (test code = 51891) NEGATIVE GC, AMPLIFIED, [id number] 00:00:00 Test Item Value Reference Range Interpretation Comments GONORRHEA, TMA (test code = 82762) NEGATIVE CHLAMYDIA, AMPLIFIED, [id number] 00:00:00 Test Item Value Reference Range Interpretation Comments CHLAMYDIA, TMA (test code = 77618) NEGATIVE CHLAMYDIA, AMPLIFIED, [id number] 00:00:00 Test Item Value Reference Range Interpretation Comments CHLAMYDIA, TMA (test code = 44251) NEGATIVE GC, AMPLIFIED, [id number] 00:00:00 Test Item Value Reference Range Interpretation Comments GONORRHEA, TMA (test code = 18291) NEGATIVE GC, AMPLIFIED, [id number] 00:00:00 Test Item Value Reference Range Interpretation Comments GONORRHEA, TMA (test code = 23595) NEGATIVE HIV AB/AG COMBO RFLX [id number] 00:00:00 Test Item Value Reference Range Interpretation Comments HIV 1/2 4TH GEN, RFLX CONF (test NON-REACTIVE code = 3514) HIV AB/AG COMBO RFLX [id number] 00:00:00 Test Item Value Reference Range Interpretation Comments HIV 1/2 4TH GEN, RFLX CONF (test NON-REACTIVE code = 3514) ACUTE HEPATITIS [id number] 00:00:00 Test Item Value Reference Range Interpretation Comments HEPATITIS A IgM (test code = NON-REACTIVE 87099) HEPATITIS B CORE IgM (test code NON-REACTIVE = 4644) HEPATITIS B SURF AG (test code = NON-REACTIVE 6269) HEPATITIS C ANTIBODY (test code NON-REACTIVE = 5975) INTERPRETATION HEPATITIS A: (NOTE) (test code = 2552) INTERPRETATION HEPATITIS B: (NOTE) (test code = 51328) INTERPRETATION HEPATITIS C: (NOTE) (test code = 20762) ACUTE HEPATITIS [id number] 00:00:00 Test Item Value Reference Range Interpretation Comments HEPATITIS A IgM (test code = NON-REACTIVE 14643) HEPATITIS B CORE IgM (test code NON-REACTIVE = 4644) HEPATITIS B SURF AG (test code = NON-REACTIVE 2739) HEPATITIS C ANTIBODY (test code NON-REACTIVE = 4675) INTERPRETATION HEPATITIS A: (NOTE) (test code = 2552) INTERPRETATION HEPATITIS B: (NOTE) (test code = 62633) INTERPRETATION HEPATITIS C: (NOTE) (test code = 68997) [id number] 00:00:00 Test Item Value Reference Range Interpretation Comments RPR RESULT (test code = NON-REACTIVE 3501) RPR TITER (test code = 3500) NOT INDIC. TITER [id number] 00:00:00 Test Item Value Reference Range Interpretation Comments RPR RESULT (test code = NON-REACTIVE 3501) RPR TITER (test code = 3500) NOT INDIC. TITER [id number] 00:00:00 Test Item Value Reference Range Interpretation Comments RPR RESULT (test code = NON-REACTIVE 3501) RPR TITER (test code = 3500) NOT INDIC. TITER HIV AB/AG COMBO RFLX [id number] 00:00:00 Test Item Value Reference Range Interpretation Comments HIV 1/2 4TH GEN, RFLX CONF (test NON-REACTIVE code = 3514) HIV AB/AG COMBO RFLX [id number] 00:00:00 Test Item Value Reference Range Interpretation Comments HIV 1/2 4TH GEN, RFLX CONF (test NON-REACTIVE code = 3514) HIV AB/AG COMBO RFLX [id number] 00:00:00 Test Item Value Reference Range Interpretation Comments HIV 1/2 4TH GEN, RFLX CONF (test NON-REACTIVE code = 3514) ACUTE HEPATITIS [id number] 00:00:00 Test Item Value Reference Range Interpretation Comments HEPATITIS A IgM (test code = NON-REACTIVE 00512) HEPATITIS B CORE IgM (test code NON-REACTIVE = 4644) HEPATITIS B SURF AG (test code = NON-REACTIVE 2739) HEPATITIS C ANTIBODY (test code NON-REACTIVE = 4675) INTERPRETATION HEPATITIS A: (NOTE) (test code = 2552) INTERPRETATION HEPATITIS B: (NOTE) (test code = 74869) INTERPRETATION HEPATITIS C: (NOTE) (test code = 01139) ACUTE HEPATITIS [id number] 00:00:00 Test Item Value Reference Range Interpretation Comments HEPATITIS A IgM (test code = NON-REACTIVE 51536) HEPATITIS B CORE IgM (test code NON-REACTIVE = 4644) HEPATITIS B SURF AG (test code = NON-REACTIVE 2739) HEPATITIS C ANTIBODY (test code NON-REACTIVE = 4675) INTERPRETATION HEPATITIS A: (NOTE) (test code = 2552) INTERPRETATION HEPATITIS B: (NOTE) (test code = 85920) INTERPRETATION HEPATITIS C: (NOTE) (test code = 80425) [id number] 00:00:00 Test Item Value Reference Range Interpretation Comments RPR RESULT (test code = NON-REACTIVE 3501) RPR TITER (test code = 3500) NOT INDIC. TITER [id number] 00:00:00 Test Item Value Reference Range Interpretation Comments RPR RESULT (test code = NON-REACTIVE 3501) RPR TITER (test code = 3500) NOT INDIC. TITER [id number] 00:00:00 Test Item Value Reference Range Interpretation Comments RPR RESULT (test code = NON-REACTIVE 3501) RPR TITER (test code = 3500) NOT INDIC. TITER HIV AB/AG COMBO RFLX [id number] 00:00:00 Test Item Value Reference Range Interpretation Comments HIV 1/2 4TH GEN, RFLX CONF (test NON-REACTIVE code = 3514) ACUTE HEPATITIS [id number] 00:00:00 Test Item Value Reference Range Interpretation Comments HEPATITIS A IgM (test code = NON-REACTIVE 66337) HEPATITIS B CORE IgM (test code NON-REACTIVE = 4644) HEPATITIS B SURF AG (test code = NON-REACTIVE 2739) HEPATITIS C ANTIBODY (test code NON-REACTIVE = 4675) INTERPRETATION HEPATITIS A: (NOTE) (test code = 2552) INTERPRETATION HEPATITIS B: (NOTE) (test code = 90204) INTERPRETATION HEPATITIS C: (NOTE) (test code = 27445) ACUTE HEPATITIS [id number] 00:00:00 Test Item Value Reference Range Interpretation Comments HEPATITIS A IgM (test code = NON-REACTIVE 96920) HEPATITIS B CORE IgM (test code NON-REACTIVE = 4644) HEPATITIS B SURF AG (test code = NON-REACTIVE 2739) HEPATITIS C ANTIBODY (test code NON-REACTIVE = 4675) INTERPRETATION HEPATITIS A: (NOTE) (test code = 2552) INTERPRETATION HEPATITIS B: (NOTE) (test code = 42563) INTERPRETATION HEPATITIS C: (NOTE) (test code = 08019) [id number] 00:00:00 Test Item Value Reference Range Interpretation Comments RPR RESULT (test code = NON-REACTIVE 3501) RPR TITER (test code = 3500) NOT INDIC. TITER [id number] 00:00:00 Test Item Value Reference Range Interpretation Comments RPR RESULT (test code = NON-REACTIVE 3501) RPR TITER (test code = 3500) NOT INDIC. TITER [id number] 00:00:00 Test Item Value Reference Range Interpretation Comments RPR RESULT (test code = NON-REACTIVE 3501) RPR TITER (test code = 3500) NOT INDIC. TITER HIV AB/AG COMBO RFLX [id number] 00:00:00 Test Item Value Reference Range Interpretation Comments HIV 1/2 4TH GEN, RFLX CONF (test NON-REACTIVE code = 3514) HIV AB/AG COMBO RFLX [id number] 00:00:00 Test Item Value Reference Range Interpretation Comments HIV 1/2 4TH GEN, RFLX CONF (test NON-REACTIVE code = 3514) ACUTE HEPATITIS [id number] 00:00:00 Test Item Value Reference Range Interpretation Comments HEPATITIS A IgM (test code = NON-REACTIVE 23060) HEPATITIS B CORE IgM (test code NON-REACTIVE = 4644) HEPATITIS B SURF AG (test code = NON-REACTIVE 9) HEPATITIS C ANTIBODY (test code NON-REACTIVE = 4675) HCV INDEX (test code = 51556) 0.13 INTERPRETATION HEPATITIS A: (NOTE) (test code = 2552) INTERPRETATION HEPATITIS B: (NOTE) (test code = 46985) INTERPRETATION HEPATITIS C: (NOTE) (test code = 01801) ACUTE HEPATITIS [id number] 00:00:00 Test Item Value Reference Range Interpretation Comments HEPATITIS A IgM (test code = NON-REACTIVE 29864) HEPATITIS B CORE IgM (test code NON-REACTIVE = 4644) HEPATITIS B SURF AG (test code = NON-REACTIVE 9) HEPATITIS C ANTIBODY (test code NON-REACTIVE = 4675) HCV INDEX (test code = 98632) 0.13 INTERPRETATION HEPATITIS A: (NOTE) (test code = 2552) INTERPRETATION HEPATITIS B: (NOTE) (test code = 97000) INTERPRETATION HEPATITIS C: (NOTE) (test code = 56994) GC AND CHLAMYDIA, AMPLIFIED, [id number] 00:00:00 Test Item Value Reference Range Interpretation Comments GONORRHEA, TMA (test code = 45354) NEGATIVE CHLAMYDIA, TMA (test code = 52833) NEGATIVE GC AND CHLAMYDIA, AMPLIFIED, [id number] 00:00:00 Test Item Value Reference Range Interpretation Comments GONORRHEA, TMA (test code = 77497) NEGATIVE CHLAMYDIA, TMA (test code = 02091) NEGATIVE [id number] 00:00:00 Test Item Value Reference Range Interpretation Comments RPR RESULT (test code = NON-REACTIVE 3501) RPR TITER (test code = 3500) NOT INDIC. TITER [id number] 00:00:00 Test Item Value Reference Range Interpretation Comments RPR RESULT (test code = NON-REACTIVE 3501) RPR TITER (test code = 3500) NOT INDIC. TITER [id number] 00:00:00 Test Item Value Reference Range Interpretation Comments RPR RESULT (test code = NON-REACTIVE 3501) RPR TITER (test code = 3500) NOT INDIC. TITER HIV AB/AG COMBO RFLX [id number] 00:00:00 Test Item Value Reference Range Interpretation Comments HIV 1/2 4TH GEN, RFLX CONF (test NON-REACTIVE code = 3514) HIV AB/AG COMBO RFLX [id number] 00:00:00 Test Item Value Reference Range Interpretation Comments HIV 1/2 4TH GEN, RFLX CONF (test NON-REACTIVE code = 3514) HIV AB/AG COMBO RFLX [id number] 00:00:00 Test Item Value Reference Range Interpretation Comments HIV 1/2 4TH GEN, RFLX CONF (test NON-REACTIVE code = 3514) ACUTE HEPATITIS [id number] 00:00:00 Test Item Value Reference Range Interpretation Comments HEPATITIS A IgM (test code = NON-REACTIVE 06308) HEPATITIS B CORE IgM (test code NON-REACTIVE = 4644) HEPATITIS B SURF AG (test code = NON-REACTIVE 2739) HEPATITIS C ANTIBODY (test code NON-REACTIVE = 4675) HCV INDEX (test code = 91735) 0.13 INTERPRETATION HEPATITIS A: (NOTE) (test code = 2552) INTERPRETATION HEPATITIS B: (NOTE) (test code = 95170) INTERPRETATION HEPATITIS C: (NOTE) (test code = 50998) ACUTE HEPATITIS [id number] 00:00:00 Test Item Value Reference Range Interpretation Comments HEPATITIS A IgM (test code = NON-REACTIVE 28775) HEPATITIS B CORE IgM (test code NON-REACTIVE = 4644) HEPATITIS B SURF AG (test code = NON-REACTIVE 2739) HEPATITIS C ANTIBODY (test code NON-REACTIVE = 4675) HCV INDEX (test code = 44068) 0.13 INTERPRETATION HEPATITIS A: (NOTE) (test code = 2552) INTERPRETATION HEPATITIS B: (NOTE) (test code = 58890) INTERPRETATION HEPATITIS C: (NOTE) (test code = 57134) HIV AB/AG COMBO RFLX [id number] 00:00:00 Test Item Value Reference Range Interpretation Comments HIV 1/2 4TH GEN, RFLX CONF (test NON-REACTIVE code = 3514) GC AND CHLAMYDIA, AMPLIFIED, [id number] 00:00:00 Test Item Value Reference Range Interpretation Comments GONORRHEA, TMA (test code = 88158) NEGATIVE CHLAMYDIA, TMA (test code = 53506) NEGATIVE GC AND CHLAMYDIA, AMPLIFIED, [id number] 00:00:00 Test Item Value Reference Range Interpretation Comments GONORRHEA, TMA (test code = 65176) NEGATIVE CHLAMYDIA, TMA (test code = 28903) NEGATIVE [id number] 00:00:00 Test Item Value Reference Range Interpretation Comments RPR RESULT (test code = NON-REACTIVE 3501) RPR TITER (test code = 3500) NOT INDIC. TITER [id number] 00:00:00 Test Item Value Reference Range Interpretation Comments RPR RESULT (test code = NON-REACTIVE 3501) RPR TITER (test code = 3500) NOT INDIC. TITER [id number] 00:00:00 Test Item Value Reference Range Interpretation Comments RPR RESULT (test code = NON-REACTIVE 3501) RPR TITER (test code = 3500) NOT INDIC. TITER ACUTE HEPATITIS [id number] 00:00:00 Test Item Value Reference Range Interpretation Comments HEPATITIS A IgM (test code = NON-REACTIVE 61558) HEPATITIS B CORE IgM (test code NON-REACTIVE = 4644) HEPATITIS B SURF AG (test code = NON-REACTIVE 2739) HEPATITIS C ANTIBODY (test code NON-REACTIVE = 4675) HCV INDEX (test code = 41166) 0.13 INTERPRETATION HEPATITIS A: (NOTE) (test code = 2552) INTERPRETATION HEPATITIS B: (NOTE) (test code = 47786) INTERPRETATION HEPATITIS C: (NOTE) (test code = 84535) ACUTE HEPATITIS [id number] 00:00:00 Test Item Value Reference Range Interpretation Comments HEPATITIS A IgM (test code = NON-REACTIVE 93715) HEPATITIS B CORE IgM (test code NON-REACTIVE = 4644) HEPATITIS B SURF AG (test code = NON-REACTIVE 2739) HEPATITIS C ANTIBODY (test code NON-REACTIVE = 4675) HCV INDEX (test code = 47620) 0.13 INTERPRETATION HEPATITIS A: (NOTE) (test code = 2552) INTERPRETATION HEPATITIS B: (NOTE) (test code = 39140) INTERPRETATION HEPATITIS C: (NOTE) (test code = 08180) GC AND CHLAMYDIA, AMPLIFIED, [id number] 00:00:00 Test Item Value Reference Range Interpretation Comments GONORRHEA, TMA (test code = 30028) NEGATIVE CHLAMYDIA, TMA (test code = 37052) NEGATIVE GC AND CHLAMYDIA, AMPLIFIED, [id number] 00:00:00 Test Item Value Reference Range Interpretation Comments GONORRHEA, TMA (test code = 14584) NEGATIVE CHLAMYDIA, TMA (test code = 19610) NEGATIVE [id number] 00:00:00 Test Item Value Reference Range Interpretation Comments RPR RESULT (test code = NON-REACTIVE 3501) RPR TITER (test code = 3500) NOT INDIC. TITER [id number] 00:00:00 Test Item Value Reference Range Interpretation Comments RPR RESULT (test code = NON-REACTIVE 3501) RPR TITER (test code = 3500) NOT INDIC. TITER [id number] 00:00:00 Test Item Value Reference Range Interpretation Comments RPR RESULT (test code = NON-REACTIVE 3501) RPR TITER (test code = 3500) NOT INDIC. TITER [id number] 00:00:00 Test Item Value Reference Range Interpretation Comments RPR RESULT (test code = NON-REACTIVE 3501) RPR TITER (test code = 3500) NOT INDIC. TITER [id number] 00:00:00 Test Item Value Reference Range Interpretation Comments RPR RESULT (test code = NON-REACTIVE 3501) RPR TITER (test code = 3500) NOT INDIC. TITER [id number] 00:00:00 Test Item Value Reference Range Interpretation Comments RPR RESULT (test code = NON-REACTIVE 3501) RPR TITER (test code = 3500) NOT INDIC. TITER HIV AB/AG COMBO RFLX [id number] 00:00:00 Test Item Value Reference Range Interpretation Comments HIV 1/2 4TH GEN, RFLX CONF (test NON-REACTIVE code = 3514) HIV AB/AG COMBO RFLX [id number] 00:00:00 Test Item Value Reference Range Interpretation Comments HIV 1/2 4TH GEN, RFLX CONF (test NON-REACTIVE code = 3514) [id number] 00:00:00 Test Item Value Reference Range Interpretation Comments RPR RESULT (test code = NON-REACTIVE 3501) RPR TITER (test code = 3500) NOT INDIC. TITER [id number] 00:00:00 Test Item Value Reference Range Interpretation Comments RPR RESULT (test code = NON-REACTIVE 3501) RPR TITER (test code = 3500) NOT INDIC. TITER [id number] 00:00:00 Test Item Value Reference Range Interpretation Comments RPR RESULT (test code = NON-REACTIVE 3501) RPR TITER (test code = 3500) NOT INDIC. TITER [id number] 00:00:00 Test Item Value Reference Range Interpretation Comments RPR RESULT (test code = NON-REACTIVE 3501) RPR TITER (test code = 3500) NOT INDIC. TITER HIV AB/AG COMBO RFLX [id number] 00:00:00 Test Item Value Reference Range Interpretation Comments HIV 1/2 4TH GEN, RFLX CONF (test NON-REACTIVE code = 3514) HIV AB/AG COMBO RFLX [id number] 00:00:00 Test Item Value Reference Range Interpretation Comments HIV 1/2 4TH GEN, RFLX CONF (test NON-REACTIVE code = 3514) [id number] 00:00:00 Test Item Value Reference Range Interpretation Comments RPR RESULT (test code = NON-REACTIVE 3501) RPR TITER (test code = 3500) NOT INDIC. TITER [id number] 00:00:00 Test Item Value Reference Range Interpretation Comments RPR RESULT (test code = NON-REACTIVE 3501) RPR TITER (test code = 3500) NOT INDIC. TITER HIV AB/AG COMBO RFLX [id number] 00:00:00 Test Item Value Reference Range Interpretation Comments HIV 1/2 4TH GEN, RFLX CONF (test NON-REACTIVE code = 3514) HIV AB/AG COMBO RFLX [id number] 00:00:00 Test Item Value Reference Range Interpretation Comments HIV 1/2 4TH GEN, RFLX CONF (test NON-REACTIVE code = 3514) GC AND CHLAMYDIA, AMPLIFIED, [id number] 00:00:00 Test Item Value Reference Range Interpretation Comments GONORRHEA, TMA (test code = 65762) NEGATIVE CHLAMYDIA, TMA (test code = 15236) NEGATIVE GC AND CHLAMYDIA, AMPLIFIED, [id number] 00:00:00 Test Item Value Reference Range Interpretation Comments GONORRHEA, TMA (test code = 69059) NEGATIVE CHLAMYDIA, TMA (test code = 53386) NEGATIVE GC AND CHLAMYDIA, AMPLIFIED, [id number] 00:00:00 Test Item Value Reference Range Interpretation Comments GONORRHEA, TMA (test code = 28322) NEGATIVE CHLAMYDIA, TMA (test code = 91842) NEGATIVE GC AND CHLAMYDIA, AMPLIFIED, [id number] 00:00:00 Test Item Value Reference Range Interpretation Comments GONORRHEA, TMA (test code = 05623) NEGATIVE CHLAMYDIA, TMA (test code = 17318) NEGATIVE GC AND CHLAMYDIA, AMPLIFIED, [id number] 00:00:00 Test Item Value Reference Range Interpretation Comments GONORRHEA, TMA (test code = 07573) NEGATIVE CHLAMYDIA, TMA (test code = 39246) NEGATIVE GC AND CHLAMYDIA, AMPLIFIED, [id number] 00:00:00 Test Item Value Reference Range Interpretation Comments GONORRHEA, TMA (test code = 95428) NEGATIVE CHLAMYDIA, TMA (test code = 72710) NEGATIVE COMPREHENSIVE METABOLIC [id number] 00:00:00 Test Item Value Reference Range Interpretation Comments GLUCOSE (test code = 2217) 127 MG/DL BUN (test code = 2208) 5 MG/DL CREATININE (test code = 2214) 0.58 MG/DL eGFR AMER. (test code 148 ML/MIN/1.73 = 33886) eGFR NON- AMER. (test 128 ML/MIN/1.73 code = 79567) CALC BUN/CREAT (test code = 9 RATIO [...] code = 2219) 18 U/L COMPREHENSIVE METABOLIC [id number] 00:00:00 Test Item Value Reference Range Interpretation Comments GLUCOSE (test code = 2217) 127 MG/DL BUN (test code = 2208) 5 MG/DL CREATININE (test code = 2214) 0.58 MG/DL eGFR AMER. (test code 148 ML/MIN/1.73 = 03455) eGFR NON- AMER. (test 128 ML/MIN/1.73 code = 61278) CALC BUN/CREAT (test code = 9 RATIO [...] (test code = 2219) 18 U/L LIPID [id number] 00:00:00 Test Item Value Reference Range Interpretation Comments CHOLESTEROL (test code = 2210) 186 MG/DL TRIGLYCERIDES (test code = 2232) 106 MG/DL HDL CHOLESTEROL (test code = 2220) 54 MG/DL CALC LDL CHOL (test code = 2237) 111 MG/DL RISK RATIO LDL/HDL (test code = 2.05 RATIO 2238) LIPID [id number] 00:00:00 Test Item Value Reference Range Interpretation Comments CHOLESTEROL (test code = 2210) 186 MG/DL TRIGLYCERIDES (test code = 2232) 106 MG/DL HDL CHOLESTEROL (test code = 2220) 54 MG/DL CALC LDL CHOL (test code = 2237) 111 MG/DL RISK RATIO LDL/HDL (test code = 2.05 RATIO 2238) COMPREHENSIVE METABOLIC [id number] 00:00:00 Test Item Value Reference Range Interpretation Comments GLUCOSE (test code = 2217) 127 MG/DL BUN (test code = 2208) 5 MG/DL CREATININE (test code = 2214) 0.58 MG/DL eGFR AMER. (test code 148 ML/MIN/1.73 = 27279) eGFR NON- AMER. (test 128 ML/MIN/1.73 code = 61000) CALC BUN/CREAT (test code = 9 RATIO [...] code = 2219) 18 U/L COMPREHENSIVE METABOLIC [id number] 00:00:00 Test Item Value Reference Range Interpretation Comments GLUCOSE (test code = 2217) 127 MG/DL BUN (test code = 2208) 5 MG/DL CREATININE (test code = 2214) 0.58 MG/DL eGFR AMER. (test code 148 ML/MIN/1.73 = 53022) eGFR NON- AMER. (test 128 ML/MIN/1.73 code = 18872) CALC BUN/CREAT (test code = 9 RATIO [...] code = 2219) 18 U/L COMPREHENSIVE METABOLIC [id number] 00:00:00 Test Item Value Reference Range Interpretation Comments GLUCOSE (test code = 2217) 127 MG/DL BUN (test code = 2208) 5 MG/DL CREATININE (test code = 2214) 0.58 MG/DL eGFR AMER. (test code 148 ML/MIN/1.73 = 90822) eGFR NON- AMER. (test 128 ML/MIN/1.73 code = 24687) CALC BUN/CREAT (test code = 9 RATIO [...] (test code = 2219) 18 U/L LIPID [id number] 00:00:00 Test Item Value Reference Range Interpretation Comments CHOLESTEROL (test code = 2210) 186 MG/DL TRIGLYCERIDES (test code = 2232) 106 MG/DL HDL CHOLESTEROL (test code = 2220) 54 MG/DL CALC LDL CHOL (test code = 2237) 111 MG/DL RISK RATIO LDL/HDL (test code = 2.05 RATIO 2238) LIPID [id number] 00:00:00 Test Item Value Reference Range Interpretation Comments CHOLESTEROL (test code = 2210) 186 MG/DL TRIGLYCERIDES (test code = 2232) 106 MG/DL HDL CHOLESTEROL (test code = 2220) 54 MG/DL CALC LDL CHOL (test code = 2237) 111 MG/DL RISK RATIO LDL/HDL (test code = 2.05 RATIO 2238) COMPREHENSIVE METABOLIC [id number] 00:00:00 Test Item Value Reference Range Interpretation Comments GLUCOSE (test code = 2217) 127 MG/DL BUN (test code = 2208) 5 MG/DL CREATININE (test code = 2214) 0.58 MG/DL eGFR AMER. (test code 148 ML/MIN/1.73 = 69218) eGFR NON- AMER. (test 128 ML/MIN/1.73 code = 73281) CALC BUN/CREAT (test code = 9 RATIO [...] (test code = 2219) 18 U/L LIPID [id number] 00:00:00 Test Item Value Reference Range Interpretation Comments CHOLESTEROL (test code = 2210) 186 MG/DL TRIGLYCERIDES (test code = 2232) 106 MG/DL HDL CHOLESTEROL (test code = 2220) 54 MG/DL CALC LDL CHOL (test code = 2237) 111 MG/DL RISK RATIO LDL/HDL (test code = 2.05 RATIO 2238) LIPID [id number] 00:00:00 Test Item Value Reference Range Interpretation Comments CHOLESTEROL (test code = 2210) 186 MG/DL TRIGLYCERIDES (test code = 2232) 106 MG/DL HDL CHOLESTEROL (test code = 2220) 54 MG/DL CALC LDL CHOL (test code = 2237) 111 MG/DL RISK RATIO LDL/HDL (test code = 2.05 RATIO 2238) GC AND CHLAMYDIA, AMPLIFIED, [id number] 00:00:00 Test Item Value Reference Range Interpretation Comments GONORRHEA, TMA (test code = 74821) NEGATIVE CHLAMYDIA, TMA (test code = 67377) NEGATIVE GC AND CHLAMYDIA, AMPLIFIED, [id number] 00:00:00 Test Item Value Reference Range Interpretation Comments GONORRHEA, TMA (test code = 42830) NEGATIVE CHLAMYDIA, TMA (test code = 63146) NEGATIVE GC AND CHLAMYDIA, AMPLIFIED, [id number] 00:00:00 Test Item Value Reference Range Interpretation Comments GONORRHEA, TMA (test code = 51898) NEGATIVE CHLAMYDIA, TMA (test code = 26074) NEGATIVE GC AND CHLAMYDIA, AMPLIFIED, [id number] 00:00:00 Test Item Value Reference Range Interpretation Comments GONORRHEA, TMA (test code = 24193) NEGATIVE CHLAMYDIA, TMA (test code = 95412) NEGATIVE GC AND CHLAMYDIA, AMPLIFIED, [id number] 00:00:00 Test Item Value Reference Range Interpretation Comments GONORRHEA, TMA (test code = 99029) NEGATIVE CHLAMYDIA, TMA (test code = 96984) NEGATIVE GC AND CHLAMYDIA, AMPLIFIED, [id number] 00:00:00 Test Item Value Reference Range Interpretation Comments GONORRHEA, TMA (test code = 20632) NEGATIVE CHLAMYDIA, TMA (test code = 22848) NEGATIVE VAGINAL PATHOGENS DNA [id number] 00:00:00 Test Item Value Reference Range Interpretation Comments YOKO SPECIES (test code = 31043) POSITIVE G. VAGINALIS (test code = 76076) NEGATIVE T. VAGINALIS (test code = 62521) NEGATIVE VAGINAL PATHOGENS DNA [id number] 00:00:00 Test Item Value Reference Range Interpretation Comments YOKO SPECIES (test code = 77293) POSITIVE G. VAGINALIS (test code = 10468) NEGATIVE T. VAGINALIS (test code = 59734) NEGATIVE VAGINAL PATHOGENS DNA [id number] 00:00:00 Test Item Value Reference Range Interpretation Comments YOKO SPECIES (test code = 64397) POSITIVE G. VAGINALIS (test code = 51566) NEGATIVE T. VAGINALIS (test code = 48554) NEGATIVE VAGINAL PATHOGENS DNA [id number] 00:00:00 Test Item Value Reference Range Interpretation Comments YOKO SPECIES (test code = 67534) POSITIVE G. VAGINALIS (test code = 68247) NEGATIVE T. VAGINALIS (test code = 74184) NEGATIVE VAGINAL PATHOGENS DNA [id number] 00:00:00 Test Item Value Reference Range Interpretation Comments YOKO SPECIES (test code = 17412) POSITIVE G. VAGINALIS (test code = 71750) NEGATIVE T. VAGINALIS (test code = 10790) NEGATIVE VAGINAL PATHOGENS DNA [id number] 00:00:00 Test Item Value Reference Range Interpretation Comments YOKO SPECIES (test code = 71027) POSITIVE G. VAGINALIS (test code = 66278) NEGATIVE T. VAGINALIS (test code = 50751) NEGATIVE GC AND CHLAMYDIA, AMPLIFIED, [id number] 00:00:00 Test Item Value Reference Range Interpretation Comments GONORRHEA, TMA (test code = 63322) NEGATIVE CHLAMYDIA, TMA (test code = 67239) NEGATIVE GC AND CHLAMYDIA, AMPLIFIED, [id number] 00:00:00 Test Item Value Reference Range Interpretation Comments GONORRHEA, TMA (test code = 03977) NEGATIVE CHLAMYDIA, TMA (test code = 30458) NEGATIVE GC AND CHLAMYDIA, AMPLIFIED, [id number] 00:00:00 Test Item Value Reference Range Interpretation Comments GONORRHEA, TMA (test code = 95633) NEGATIVE CHLAMYDIA, TMA (test code = 24665) NEGATIVE GC AND CHLAMYDIA, AMPLIFIED, [id number] 00:00:00 Test Item Value Reference Range Interpretation Comments GONORRHEA, TMA (test code = 72584) NEGATIVE CHLAMYDIA, TMA (test code = 28001) NEGATIVE GC AND CHLAMYDIA, AMPLIFIED, [id number] 00:00:00 Test Item Value Reference Range Interpretation Comments GONORRHEA, TMA (test code = 91893) NEGATIVE CHLAMYDIA, TMA (test code = 01739) NEGATIVE GC AND CHLAMYDIA, AMPLIFIED, [id number] 00:00:00 Test Item Value Reference Range Interpretation Comments GONORRHEA, TMA (test code = 32541) NEGATIVE CHLAMYDIA, TMA (test code = 94794) NEGATIVE CULTURE, [id number] 00:00:00 Test Item Value Reference Range Interpretation Comments CULTURE, URINE (test SPECIMEN NUMBER: code = 70642) [id number] CULTURE, [id number] 00:00:00 Test Item Value Reference Range Interpretation Comments CULTURE, URINE (test SPECIMEN NUMBER: code = 59208) [id number] CULTURE, [id number] 00:00:00 Test Item Value Reference Range Interpretation Comments CULTURE, URINE (test SPECIMEN NUMBER: code = 43756) [id number] CULTURE, [id number] 00:00:00 Test Item Value Reference Range Interpretation Comments CULTURE, URINE (test SPECIMEN NUMBER: code = 97697) [id number] CULTURE, [id number] 00:00:00 Test Item Value Reference Range Interpretation Comments CULTURE, URINE (test SPECIMEN NUMBER: code = 60618) [id number] CULTURE, [id number] 00:00:00 Test Item Value Reference Range Interpretation Comments CULTURE, URINE (test SPECIMEN NUMBER: code = 84390) [id number] HEMOGLOBIN [id number] 00:00:00 Test Item Value Reference Range Interpretation Comments HEMOGLOBIN A1c (test code = 82013) 5.5 % HEMOGLOBIN [id number] 00:00:00 Test Item Value Reference Range Interpretation Comments HEMOGLOBIN A1c (test code = 99229) 5.5 % HEMOGLOBIN [id number] 00:00:00 Test Item Value Reference Range Interpretation Comments HEMOGLOBIN A1c (test code = 49927) 5.5 % CBC W/AUTO [id number] 00:00:00 Test Item Value Reference Range Interpretation [...] code = 1015) 310 K/UL CBC W/AUTO [id number] 00:00:00 Test Item Value Reference Range Interpretation [...] code = 1015) 310 K/UL CBC W/AUTO [id number] 00:00:00 Test Item Value Reference Range Interpretation [...] code = 1015) 310 K/UL COMPREHENSIVE METABOLIC [id number] 00:00:00 Test Item Value Reference Range Interpretation Comments GLUCOSE (test code = 2217) 73 MG/DL BUN (test code = 2208) 10 MG/DL CREATININE (test code = 2214) 0.51 MG/DL eGFR AMER. (test code 158 ML/MIN/1.73 = 79650) eGFR NON- AMER. (test 136 ML/MIN/1.73 code = 04545) CALCULATED BUN/CREAT (test 20 RATIO code = [...] code = 2219) 23 U/L COMPREHENSIVE METABOLIC [id number] 00:00:00 Test Item Value Reference Range Interpretation Comments GLUCOSE (test code = 2217) 73 MG/DL BUN (test code = 2208) 10 MG/DL CREATININE (test code = 2214) 0.51 MG/DL eGFR AMER. (test code 158 ML/MIN/1.73 = 00665) eGFR NON- AMER. (test 136 ML/MIN/1.73 code = 07068) CALCULATED BUN/CREAT (test 20 RATIO code = [...] (test code = 221) 23 U/L LIPID [id number] 00:00:00 Test Item Value Reference Range Interpretation Comments CHOLESTEROL (test code = 2210) 167 MG/DL TRIGLYCERIDES (test code = 2232) 109 MG/DL HDL CHOLESTEROL (test code = 2220) 58 MG/DL CALCULATED LDL CHOL (test code = 87 MG/DL 2236) RISK RATIO LDL/HDL (test code = 1.50 RATIO 2238) LIPID [id number] 00:00:00 Test Item Value Reference Range Interpretation [...] (test code = 2821) 1.5 UIU/ML HEMOGLOBIN [id number] 00:00:00 Test Item Value Reference Range Interpretation Comments HEMOGLOBIN A1c (test code = 43585) 5.5 % HEMOGLOBIN [id number] 00:00:00 Test Item Value Reference Range Interpretation Comments HEMOGLOBIN A1c (test code = 15964) 5.5 % HEMOGLOBIN [id number] 00:00:00 Test Item Value Reference Range Interpretation Comments HEMOGLOBIN A1c (test code = 91196) 5.5 % HEMOGLOBIN [id number] 00:00:00 Test Item Value Reference Range Interpretation Comments HEMOGLOBIN A1c (test code = 54660) 5.5 % HEMOGLOBIN [id number] 00:00:00 Test Item Value Reference Range Interpretation Comments HEMOGLOBIN A1c (test code = 07157) 5.5 % CBC W/AUTO [id number] 00:00:00 Test Item Value Reference Range Interpretation [...] code = 1015) 310 K/UL CBC W/AUTO [id number] 00:00:00 Test Item Value Reference Range Interpretation [...] code = 1015) 310 K/UL CBC W/AUTO [id number] 00:00:00 Test Item Value Reference Range Interpretation [...] code = 1015) 310 K/UL COMPREHENSIVE METABOLIC [id number] 00:00:00 Test Item Value Reference Range Interpretation Comments GLUCOSE (test code = 2217) 73 MG/DL BUN (test code = 2208) 10 MG/DL CREATININE (test code = 2214) 0.51 MG/DL eGFR AMER. (test code 158 ML/MIN/1.73 = 47384) eGFR NON- AMER. (test 136 ML/MIN/1.73 code = 11690) CALCULATED BUN/CREAT (test 20 RATIO code = [...] code = 2219) 23 U/L COMPREHENSIVE METABOLIC [id number] 00:00:00 Test Item Value Reference Range Interpretation Comments GLUCOSE (test code = 2217) 73 MG/DL BUN (test code = 2208) 10 MG/DL CREATININE (test code = 2214) 0.51 MG/DL eGFR AMER. (test code 158 ML/MIN/1.73 = 84838) eGFR NON- AMER. (test 136 ML/MIN/1.73 code = 36246) CALCULATED BUN/CREAT (test 20 RATIO code = [...] (test code = 2219) 23 U/L LIPID [id number] 00:00:00 Test Item Value Reference Range Interpretation Comments CHOLESTEROL (test code = 2210) 167 MG/DL TRIGLYCERIDES (test code = 2232) 109 MG/DL HDL CHOLESTEROL (test code = 2220) 58 MG/DL CALCULATED LDL CHOL (test code = 87 MG/DL 2236) RISK RATIO LDL/HDL (test code = 1.50 RATIO 2237) LIPID [id number] 00:00:00 Test Item Value Reference Range Interpretation [...] (test code = 2821) 1.5 UIU/ML HEMOGLOBIN [id number] 00:00:00 Test Item Value Reference Range Interpretation Comments HEMOGLOBIN A1c (test code = 37689) 5.5 % CBC W/AUTO [id number] 00:00:00 Test Item Value Reference Range Interpretation [...] code = 1015) 310 K/UL CBC W/AUTO [id number] 00:00:00 Test Item Value Reference Range Interpretation [...] code = 1015) 310 K/UL CBC W/AUTO [id number] 00:00:00 Test Item Value Reference Range Interpretation [...] code = 1015) 310 K/UL COMPREHENSIVE METABOLIC [id number] 00:00:00 Test Item Value Reference Range Interpretation Comments GLUCOSE (test code = 2217) 73 MG/DL BUN (test code = 2208) 10 MG/DL CREATININE (test code = 2214) 0.51 MG/DL eGFR AMER. (test code 158 ML/MIN/1.73 = 78843) eGFR NON- AMER. (test 136 ML/MIN/1.73 code = 31312) CALCULATED BUN/CREAT (test 20 RATIO code = [...] code = 2219) 23 U/L COMPREHENSIVE METABOLIC [id number] 00:00:00 Test Item Value Reference Range Interpretation Comments GLUCOSE (test code = 2217) 73 MG/DL BUN (test code = 2208) 10 MG/DL CREATININE (test code = 2214) 0.51 MG/DL eGFR AMER. (test code 158 ML/MIN/1.73 = 97833) eGFR NON- AMER. (test 136 ML/MIN/1.73 code = 43160) CALCULATED BUN/CREAT (test 20 RATIO code = [...] (test code = 2219) 23 U/L LIPID [id number] 00:00:00 Test Item Value Reference Range Interpretation Comments CHOLESTEROL (test code = 2210) 167 MG/DL TRIGLYCERIDES (test code = 2232) 109 MG/DL HDL CHOLESTEROL (test code = 2220) 58 MG/DL CALCULATED LDL CHOL (test code = 87 MG/DL 2237) RISK RATIO LDL/HDL (test code = 1.50 RATIO 2238) LIPID [id number] 00:00:00 Test Item Value Reference Range Interpretation [...] Physical Notes Date/Time Note Provider Source 2023-03-11 10:20:10 [id number]:20:10Formatting of this Jelena-Patrice note is different from the Clini [facility] original.Images from the original note were not included.Pain Management ClinicCarlie Briones MD, Sissy Spencer PA-C, MPASASSESSMENT 1. Chronic pain of both knees 2. Fibromyalgia Blood Thinners: NSAIDsPLAN Pt Declined Psych referralPT:No SURGERY:No MEDS: Opioids: Anti-epileptic drugs Muscle Relaxant: NSAIDs (OTC or Rx) Other: INJECTIONS: NoTODAY:Continue meds as deemed necessary per PCPCont w psych for schizophrenia, borderlne d/o, bipolar d/o on abilify, cymbaltaH/o SI and was admitted in the pastPt Declined Physical therapy, due financecont FMS mgt w rheumSeen Dr. Turpin, discuss w Dr. Turpin if knee inj is indicatedPt Declined further ortho surgery consult, BMI 50Pt appears sedated and slow speech, opiates not indicatedD/c neurontin 100mg, no efficacyContinue Topamax 50mg Start 1 po q 12 hrs. Denies glaucoma or kidney problems, pt is aware decrease efficacy of control taking in combination w topamax, pt reports she is not sexual active. At this point I am concerned using any form of opiates given her psychiatric co morbidities and psychotic medications causing slow reaction time and extreme sedation her pain complaints are very sporadic in knees and then claims all over FMS type pains I recommended to patient to see Dr Turpin again if a knee IA injection is deemed warranted Pt lives near [facility] and witnessed per Brian Spencer PA-C Patient was instructed to get future needed refills of Topamax from PCP there is no indicated need for patient to continue following up with pain management Significant education provided today on diagnosis, conservative management options, injections, and when surgical consultation is indicated. Patient agrees with current plan and management options as described below.Recommend routine physical Continue bowel managementPatient instructed to continue with home exercise program.Patient instructed to go to nearest ER if developed any sudden weakness in the extremities or sudden bowel and/or bladder incontinence.Pt's chart and history were reviewed; physical exam have been updated with no significant changes of the above chronic pain noted.Chief complaint or Subjective: Area of pain : Knee(s): bilateral What is the duration of your pain? constantly Kind of pain (quality):Dull, Aching What makes it worse? Standing, Walking Do you have any - WEAKNESS Bilateral LOWER extremity NUMBNESS Bilateral LOWER extremity Changes in pattern of pain or weakness? No Current modalities for pain management: Rest Functional Status: Requires assitance with: mobility: assistive device usage: wheelchair: manual Routine physical within the past year? YES HISTORY: Carlos Collins is a adult, with PMH of: Degenerative Joint DiseaseFMS under the care of rheumBMI:?50.84 borderlne d/o, bipolar d/o under the care of psych on abilify, cymbaltaH/o SI and was admitted Complaining of Knee(s): bilateral, with chronic intermittet muscle spasms,spontaneously.Denies any recent bowel or bladder incontinence or rentention, saddle paresthesia, or sexual dysfunctionDenies fever, chills, unintentional weight loss or any associated constiutional changes. Denies any suicide thoughts or ideation, diagnosed with followed by psychiatrist.Conservative teatments including trial of PT, OTC analgesics, and non opioid medications without relief. has been evaluated by surgeon (spine, ortho, or neurosurgeon) for consultation.Currently, takes Medications per day for pain relief. Patients are not exibiting side effects from listed medication(s) above. Patient maintains a bowel management regimen of fiber diet, OTC laxatives, or stool softeners. Medication enable pt to function with activities of daily living. As of this visit, pt has been compliant with pain medications with no apparent signs of abuse or misuse of opioid pain medication. Ref per No ref. provider found for Pain Mgt eval for chronic arthritis in amy knees but also fibromyalgia. She has been seen by rheumatology.HPI Interval since last visit: 03/11/2023: Topamax is helping better than Neurontin she continues to be extremely sedated with her psych polypharmacy Topamax did NOT worsen her alertness Here for routine med RFs, no SE w meds. With current treatment of pain meds and injections, pt is able to function with ADLs, activities of daily living. Physical Exam: GENERAL: Not in acute distress, well developed, well nourished very sedated with very heavy speech and reaction time HEADNormocephalic, atraumaticPupils: without miosis or mydriasisCERVICALDecreased AROM/PROM with painAlignment: normal, cervical lordosis UPPER EXTREMITIESMotor: C5-T1 myotomes bilateral 5/5 WRIST/HAND Heberden's nodules: absentTHORACIC/LUMBARDecreased AROM/PROM with painAlignment: Blunted lordosis LOWER EXTREMITIES Motor: Myotomes L3-S1 bilateral 5/5 KNEEROM: decreased bilateral NEUROLOGICALGait: patient uses wheelchair for mobility PSYCHMood: Depressed and Flat affect Pain behavior: noneDiagnostic studies: MR KNEE LEFT WO CONTRAST 08/20/2020 Stable MRI with lateral patellar subluxation with chronic thinning/sprain of the medial patellofemoral retinaculum suspected. Mild contusion over the medial aspect of the patella which may represent sequela from a prior lateral patellofemoral dislocation and relocation. Preliminary Report Dictated by Resident: Jolie Rao I, Alex Birmingham MD., have reviewed this study and agree with the above report.NarrativeEXAM: MR KNEE LEFT WO CONTRAST HISTORY: 25 years-old Female intermittent chronic knee pain. Patient have a recent episode with sharp pain after a leg press. COMPARISON: Plain radiograph from 03/16/2020, knee MR 10/22/2017. TECHNIQUE AND FINDINGS: 1.5 Josselin ?multiplanar multi weighted MR imaging of the left knee was performed without contrast. BONE AND JOINT: The patellofemoral compartment: Lateral patellar subluxation is present. Grade 1 chondral loss of the lateral patellar and femoral?articular surfaces. Medial compartment: The chondral surfaces are intact. Lateral compartment: The chondral surfaces are intact. Bone marrow: Mild T2 bone marrow signal intensity increase is seen at the medial margin of the patella. No focal lesions or fractures are present. No suprapatellar joint effusion is present. MENISCI: Medial meniscus: Intact Lateral meniscus: Intact LIGAMENTS AND TENDONS: The is attenuation of the medial patellofemoral retinaculum with mild thickening of the lateral patellofemoral retinaculum. The extensor mechanism, cruciate ligaments, medial collateral ligament and lateral collateral ligamentous complex, iliotibial band, popliteus and biceps femoris tendons are intact. SOFT TISSUES: No muscle atrophy is demonstrated. No solid soft tissue masses are present.KNEE ROUTINE 10-39 YEARS [id number]/10/2023 10:40 AMResult Narrative: Examination: KNEE ROUTINE 10-39 YEARS BILATERAL [...] *The following may be discussed with patient based on pt's treatment plan:Opiate Risk Tool Scorin-3 Low risk: 6% change of developing problematic behaviors4-7 Moderate risk: 28% change of developing problematic behaviors>=8 High risk: >90% change of developing problematic behaviorsGoals of Therapy:Improve ambulation, quality of life, minimize medications, improve sleep pattern, increase level of activities, return to work, or improve ability to work. Patient understands their responsibility of their involvement to achieve the above goals, better quality of life, better function, and possible pain control. Patient also understands the nature of chronic pain and disease process. Options:Conservative options have been reviewed and discussed in detail. These include additional physical therapy, medication, exercise conditioning, and weight loss. Interventional treatment options include epidural steroid injections, sacroiliac injections, medial branch block, or radiofrequency ablation. The patient has decided to proceed with interventional injection therapy. We discussed the role of surgery consult as well. That decision was deferred at this time. Risks:Risks of conservative treatment were discussed and include progression of the underlying condition, including permanent or increased neurological sequelae.Risks of interventional injection treatment were also reviewed in detail and include , hemorrhage, infection, nerve damage, paralysis, recurrence, worsening or non-resolution of symptoms, dural tear, dural puncture headache, meningitis. No guarantees were given. Certain components of the symptoms may not resolve as a result of interventional injection therapy. Patient is aware that spinal injection with varies types of corticosteroids is not FDA approved. The patient agrees to proceed with this treatment recommendation. Counseling Given:The diagnosis, prognosis, treatment options, risks; alternatives were discussed in detail using language understandable to this patient. Questions have been elicited and all questions have been answered to the patient s satisfaction in understandable terms. Realistic reassurance has been given to the patient regarding any fears or anxieties expressed today. Risks, benefits and options of recommended interventional procedures and proposed treatments were discussed. Preoperative instructions were reviewed including the use of anticoagulants. The patient was instructed to call if any change in medical status occurs, including infections which may necessitate schedule changes. Opiate Controlled Substance Therapy Requirements:Urine Drug Screen: Agree to submit to urine and/or blood screening tests to detect the use of non-prescribed medications, inappropriate pain medication, (including alcohol) or illicit drugs at any time. Psychology Clearance: Opiate controlled substance therapy for chronic pain represents a complex problem that may benefit from physical therapy, psychotherapy, and behavioral medicine strategies. Safety: Patient is aware that driving is prohibited while using opiate medications, muscle relaxants, antidepressants, or antiepileptics. Patients are prohibited to use any sedative hypnotics or sleeping aid, benzodiazepines or barbiturates while on medications from the pain clinic. Controlled substance medications should be in a locked, inaccessible to others, including children.Medication therapy of opiate controlled substance, muscle relaxant, antidepressant, antiepileptic, benzodiazepine, tranquilizer, or sedative may cause:1. Psychological dependence (addiction) to controlled substances that will require participation in any treatment program prescribed at facilities, which may include;?? detoxification and/or?? psychological, and medical treatment 2. multiple side effects include: - respiratory depression or failure that may lead to sudden .- intractable constipation that may cause bowel impaction or obstruction, which may require surgery. - urinary retention that may lead to renal problems- decrease of hormone levels with possible impotence, decreased libido, or sexual dysfunction. - Methadone or various antidepressants may cause heart arrhythmias that may lead to .- withdrawal symptoms such as, abdominal cramps, sweats, chills, generalized aching, and sudden .- sedation caused by medications: opiates (oral, patch, or infusion pump) muscle relaxants, anti-epileptic, benzodiazapines, antidepressants, sedatives, and/or tranquilizers, the drug land acquisition specialist, recommends not operating ANY machinery or ANY form of motorized equipment (this includes a motor vehicle).- sedation from medications may cause increase risk of falls which requires 24 hrs supervision when starting a new medication.- any other side effects that may require immediate ER medical attention.- Patient is aware the possible of developing seriotonin syndrome while being on various antidepressants or tramadol type medications which may lead to sudden . [id number] and physical [id number] and physical [id number] for patient [facility] [place], [place] [id number]"
[2023-06-27] MEDS ORDERED: NA CHLORIDE 0.9% 1,000 ML ONE (12:54)
[2023-06-27] MEDS ORDERED: levETIRAcetam 1,000 MG in NA CHLORIDE 0.9% 100 ML IV ONE (13:00)
[2023-06-27 13:02] LABS: Absolute Lymphocytes (CBC) 1.7 K/uL (0.7-4.9); Hematocrit 38.2 % (36.0-45.0); Lymphocytes % 27.7 % (15.3-44.8); MCV 85.5 fL (80-100); MPV 8.5 fL (7.6-11.3); Platelets 239 thou/uL (152-406); RBC Red Blood Cell Count 4.47 M/uL (3.86-4.86)
--- NOTE | 2023-06-27 13:14 | RAD REPORT ---
EXAM DESCRIPTION: CT - Head Brain Wo Cont - 06/27/2023 1:05 pm CLINICAL HISTORY: SEIZURE COMPARISON: Head Brain Wo Cont dated 12/25/2022; Head Brain Wo Cont dated 10/10/2022; Head C Spine Ca p W Con dated 05/01/2023 TECHNIQUE: All CT scans are performed using dose optimization technique as appropriate and may inclu de automated exposure control or mA/KV adjustment according to patient size. FINDINGS: No intracranial hemorrhage, hydrocephalus or extra-axial fluid collection.No areas of brai n edema or evidence of midline shift. Empty sella, typically a normal variant. The paranasal sinuses and mastoids are clear. The calvarium is intact. IMPRESSION: No acute intracranial abnormality.
[2023-06-27 13:22] LABS: ALT/SGPT 14 U/L (13-56); AST/SGOT 8 U/L (15-37); Albumin 3.5 g/dL (3.4-5.0); Alkaline Phosphatase 65 U/L (45-117); BUN Blood Urea Nitrogen 5 mg/dL (7-18); Bicarbonate 23 mEq/L (21-32); Bilirubin Direct 0.2 mg/dL (0-0.2); Bilirubin Indirect, Calculated 0.5 mg/dL (0.2-0.8); Bilirubin Total 0.7 mg/dL (0.2-1.0); Glomerular Filtration Rate 113 ml/min (=/>90); Glucose Level 89 mg/dL (74-106); Magnesium 2.1 mg/dL (1.6-2.4); Potassium 3.5 mEq/L (3.5-5.1); Protein, Total 8.2 g/dL (6.4-8.2); Sodium Level 139 mEq/L (136-145)
[2023-06-27 13:23] LABS: Troponin High Sensitivity < 3.0 pg/mL (<58.9)
[2023-06-27 16:00] LABS: Specific Gravity 1.009 (1.005-1.030)
[2023-06-27 16:03] LABS: Specific Gravity 1.009 (1.005-1.030); Urine Bacteria <20 /HPF (<20); Urine Bilirubin NEGATIVE (Negative); Urine Blood 3+ (Negative); Urine Clarity Extremely Turbid (Clear); Urine Color Light-Yellow (Yellow); Urine Glucose NEGATIVE (Negative); Urine Mucus Slight /HPF (None Seen); Urine Protein NEGATIVE (Negative); Urine RBC <5 /HPF (None Seen); Urine Urobilinogen Normal (Normal)
--- NOTE | 2023-06-27 16:07 | ER ---
Nurse's Notes [facility] Name: Taylor Rodriguez Age: 28 yrs Sex: Female : 1995 Arrival Date: 06/27/2023 Time: 12:21 Bed 8 Private MD: Diagnosis: Epileptic seizures related to external causes, not intractable Presentation: 06/27 13:02 Chief complaint: Patient states: EMS toned out to patient home for seizure activity. ld1 Coronavirus screen: At this time, the client does not indicate any symptoms associated with coronavirus-19. Ebola Screen: No symptoms or risks identified at this time. Initial Sepsis Screen: Does the patient meet any 2 criteria? No. Patient's initial sepsis screen is negative. Does the patient have a suspected source of infection? No. Patient's initial sepsis screen is negative. Risk Assessment: Do you want to hurt yourself or someone else? Patient reports no desire to harm self or others. Onset of symptoms was June 27, 2023. 13:02 Method Of Arrival: EMS: [facility] ld1 13:02 Acuity: MILAN 3 ld1 Triage Assessment: 13:03 General: Appears in no apparent distress. comfortable, Behavior is calm, cooperative, ld1 appropriate for age. Pain: Denies pain. EENT: No signs and/or symptoms were reported regarding the EENT system. Neuro: Level of Consciousness is awake, alert, obeys commands, Oriented to person, place, time, situation, Seizure activity reported prior to arrival. Cardiovascular: Capillary refill < 3 seconds Patient's skin is warm and dry. Respiratory: Airway is patent Respiratory effort is even, unlabored. GI: Abdomen is non-distended, obese. : No signs and/or symptoms were reported regarding the genitourinary system. Derm: No signs and/or symptoms reported regarding the dermatologic system. Musculoskeletal: No signs and/or symptoms reported regarding the musculoskeletal system. Historical: - Allergies: 13:03 Naproxen; ld1 - PMHx: 13:03 Anxiety; Bipolar disorder; Chronic pain; Depression; Fibromyalgia; High Blood Pressure; ld1 Schizophrenia; Sleep Apnea; - Immunization history:: Adult Immunizations up to date. - Social history:: Smoking status: Patient denies any tobacco usage or history of. Patient/guardian denies using alcohol. Screenin:04 [facility] Fall Risk Assessment (Adult) History of falling in the last 3 months, ld1 including since admission No falls in past 3 months (0 pts). Abuse screen: Denies threats or abuse. Denies injuries from another. Nutritional screening: No deficits noted. Tuberculosis screening: No symptoms or risk factors identified. Assessment: 13:04 Reassessment: See triage assessment. ld1 14:36 Reassessment: Patient appears in no apparent distress at this time. No changes from ld1 previously documented assessment. Patient and/or family updated on plan of care and expected duration. Pain level reassessed. Patient is alert, oriented x 3, equal unlabored respirations, skin warm/dry/pink. 15:37 Reassessment: Patient appears in no apparent distress at this time. No changes from aa5 previously documented assessment. Patient and/or family updated on plan of care and expected duration. Pain level reassessed. Patient is alert, oriented x 3, equal unlabored respirations, skin warm/dry/pink. 15:52 Reassessment: Patient appears in no apparent distress at this time. No changes from jl7 previously documented assessment. Patient and/or family updated on plan of care and expected duration. Pain level reassessed. Vital Signs: 13:02 BP 147 / 98; Pulse 71; Resp 18; Temp 98.3(TE); Pulse Ox 100% on R/A; Weight 129.27 kg; ld1 Height 5 ft. 6 in. ; Pain 0/10; 14:36 BP 139 / 92; Pulse 73; Resp 18; Pulse Ox 100% on R/A; ld1 15:52 BP 141 / 89; Pulse 71; Resp 18; Pulse Ox 100% on R/A; jl7 13:02 Body Mass Index 46.00 (129.27 kg, 167.64 cm) ld1 13:02 Pain Scale: Adult ld1 ED Course: 12:25 Patient arrived in ED. eb 12:26 Luh Rodriguez PA-C is PHCP. sb4 12:27 Prem Drake MD is Attending Physician. sb4 12:55 Kerry Tejeda, ORQUE is Primary Nurse. ld1 13:03 Triage completed. ld1 13:03 Arm band placed on right wrist. EKG completed in triage. Results shown to MD. ld1 13:04 Patient has correct armband on for positive identification. Placed in gown. Bed in low ld1 position. Call light in reach. Side rails up X2. medical assistant dermatology on. Pulse ox on. NIBP on. Door closed. Noise minimized. Warm blanket given. 13:04 No provider procedures requiring assistance completed. Inserted saline lock: 20 gauge ld1 in right antecubital area, using aseptic technique. Blood collected. 13:07 CT Head Brain wo Cont In Process Unspecified. EDSD 15:49 Test, Urine Sent. aa5 15:49 UDS Sent. aa5 15:49 Urinalysis w/ reflexes Sent. aa5 Administered Medications: 12:55 Drug: NS 0.9% IV 1000 ml IV at 1 bolus Per protocol; 1000 mL bolus Route: IV; Rate: 1 ld1 bolus; Site: right antecubital; 13:42 Drug: Keppra IV 1000 mg IV at calculated rate once Route: IV; Rate: calculated rate; ld1 Site: right antecubital; Medication: 13:04 VIS not applicable for this client. ld1 Outcome: 16:07 Discharge ordered by MD. reynolds 16:30 Patient left the ED. ld1 Signatures: Dispatcher [employer] EDSD Elizabeth Marie, RN RN aa5 Malik Blanchard RN RN edgar7 Lolly Vang Lauren, RN RN ld1 Luh Rodriguez PA-C PA-C sb4
--- NOTE | 2023-06-27 16:07 | EDPHYS ---
Physician Documentation [facility] Name: Taylor Rodriguez Age: 28 yrs Sex: Female : 1995 Arrival Date: 06/27/2023 Time: 12:21 Bed 8 Private MD: ED Physician Prem Drake HPI: 06/27 13:42 This 28 yrs old Black Female presents to ER via EMS with complaints of seizure. sb4 06/28 12:19 The patient presents with a history of multiple seizures, a total of 2. patient states sb4 that she had 2 seizures [employer]OR [employer] and called EMS. she is not post ictal but is a poor historian. she states that she has seizures at least once a week. she states she called EMS today because she fell. she denies any recent changes in her medication regimine, although is unsure of all the meds she takes. she states she is seen at [facility] for management of her epilepsy. she is on a lot of medications for bipolar disorder and fibromyalgia. Historical: - Allergies: 06/27 13:03 Naproxen; ld1 - PMHx: 13:03 Anxiety; Bipolar disorder; Chronic pain; Depression; Fibromyalgia; High Blood Pressure; ld1 Schizophrenia; Sleep Apnea; - Immunization history:: Adult Immunizations up to date. - Social history:: Smoking status: Patient denies any tobacco usage or history of. Patient/guardian denies using alcohol. ROS: 06/28 12:20 Constitutional: Negative for fever, chills, and weight loss, sb4 Neuro: Positive for seizure activity, All other systems are negative, Exam: 12:20 Head/Face: Normocephalic, atraumatic. Eyes: Extra-ocular motions intact. Periorbital sb4 areas with no swelling, redness, or edema. ENT: Mucous membranes moist. Cardiovascular: Regular rate and rhythm with a normal S1 and S2. Respiratory: Lungs have equal breath sounds bilaterally, clear to auscultation and percussion. No rales, rhonchi or wheezes noted. No increased work of breathing, no retractions or nasal flaring. Abdomen/GI: Soft, non-tender, no distension. Skin: Warm, dry with normal turgor. Normal color with no rashes, no lesions, and no evidence of cellulitis. MS/ Extremity: Pulses equal, no cyanosis. Neurovascular intact. Full, normal range of motion. Neuro: Awake and alert, GCS 15, oriented to person, place, time, and situation. Motor strength 5/5 in all extremities. Sensory grossly intact. 12:20 Constitutional: The patient appears alert, awake, obese, Vital Signs: 06/27 13:02 BP 147 / 98; Pulse 71; Resp 18; Temp 98.3(TE); Pulse Ox 100% on R/A; Weight 129.27 kg; ld1 Height 5 ft. 6 in. ; Pain 0/10; 14:36 BP 139 / 92; Pulse 73; Resp 18; Pulse Ox 100% on R/A; ld1 15:52 BP 141 / 89; Pulse 71; Resp 18; Pulse Ox 100% on R/A; jl7 13:02 Body Mass Index 46.00 (129.27 kg, 167.64 cm) ld1 13:02 Pain Scale: Adult ld1 MDM: 12:27 Patient medically screened. sb4 06/28 12:20 Differential diagnosis: cerebral vascular accident, drug overdose, cardiac arrhythmia, sb4 seizure, TIA. Data reviewed: vital signs, nurses notes, EMS record, lab test result(s), EKG, radiologic studies, and as a result, I will discharge patient. Care significantly affected by the following chronic conditions: Hypertension, epilepsy, fibromyalgia, bipolar disorder. Counseling: I had a detailed discussion with the patient and/or guardian regarding the historical points, exam findings, and any diagnostic results supporting the discharge/admit diagnosis, the presence of at least one elevated blood pressure reading (>120/80) during this emergency department visit, lab results, radiology results, the need for outpatient follow up, a neurologist, to return to the emergency department if symptoms worsen or persist or if there are any questions or concerns that arise at home. 06/27 12:28 Order name: Basic Metabolic Panel; Complete Time: 13:25 sb4 06/27 12:28 Order name: CBC with Diff; Complete Time: 13:11 sb4 06/27 12:28 Order name: Hepatic Function; Complete Time: 13:25 sb4 06/27 12:28 Order name: Magnesium; Complete Time: 13:25 sb4 06/27 12:28 Order name: Test, Urine; Complete Time: 16:06 sb4 06/27 12:28 Order name: Troponin High Sensitivity; Complete Time: 13:25 sb4 06/27 12:28 Order name: UDS; Complete Time: 16:29 sb4 06/27 12:28 Order name: Urinalysis w/ reflexes; Complete Time: 16:06 sb4 06/27 12:28 Order name: CT Head Brain wo Cont; Complete Time: 13:14 sb4 06/27 12:28 Order name: EKG; Complete Time: 12:29 sb4 06/27 12:28 Order name: Cardiac monitoring; Complete Time: 12:38 sb4 06/27 12:28 Order name: EKG - Nurse/Tech; Complete Time: 12:38 sb4 06/27 12:28 Order name: IV Saline Lock; Complete Time: 12:55 sb4 06/27 12:28 Order name: Labs collected and sent; Complete Time: 12:55 sb4 06/27 12:28 Order name: O2 Per Protocol; Complete Time: 12:38 sb4 06/27 12:28 Order name: O2 Sat Monitoring; Complete Time: 12:38 sb4 EC/28 18:31 Rate is 73 beats/min. Rhythm is regular, Normal Sinus Rhythm. SC interval is normal at sb4 162 msec. QRS interval is normal at 86 msec. QT interval is normal at 429 msec. No Q waves. T waves are Normal. No ST changes noted. Clinical impression: Normal ECG. Interpreted by me. Reviewed by me. Administered Medications: 12:55 Drug: NS 0.9% IV 1000 ml IV at 1 bolus Per protocol; 1000 mL bolus Route: IV; Rate: 1 ld1 bolus; Site: right antecubital; 13:42 Drug: Keppra IV 1000 mg IV at calculated rate once Route: IV; Rate: calculated rate; ld1 Site: right antecubital; Disposition Summary: 06/27/23 16:07 Discharge Ordered Notes: Location: Home sb4 Problem: new sb4 Symptoms: are unchanged sb4 Condition: Stable sb4 Diagnosis - Epileptic seizures related to external causes, not intractable sb4 Followup: sb4 - With: Emergency Department - When: As needed - Reason: Trouble breathing, Worsening of condition Forms: - Medication Reconciliation Form sb4 - Thank You Letter sb4 - Antibiotic Education sb4 - Prescription Opioid Use sb4 - Patient Portal Instructions sb4 - Leadership Thank You Letter sb4 Addendum: 06/28/2023 16:42 I was immediately available for consultation during this patient's visit. I did not e c2 personally see the patient or guide the patient's care.. Signatures: Dispatcher [employer] Kerry Lema RN RN ld1 Luh Rodriguez, MARY HERNANDEZ sb4 Prem Drake MD MD ec2 Corrections: (The following items were deleted from the chart) 12:19 The patient presents with a history of multiple seizures, a total of 2, sb4 sb4 : 12:19 patient states that she had 2 seizures [employer] and called EMS. she is not post ictal sb4 but is a poor historian.. sb4
[2023-06-27 16:16] LABS: Barbiturates NEGATIVE (NEGATIVE); Benzodiazepines NEGATIVE (NEGATIVE); Cocaine NEGATIVE (NEGATIVE); METHAMPHETAM NEGATIVE (NEGATIVE); Opiates NEGATIVE (NEGATIVE); Phencyclidine NEGATIVE (NEGATIVE); THC Cannibis NEGATIVE (NEGATIVE)
[2023-06-27 16:25] LABS: Methadone ND (NEGATIVE)
[2023-06-27 16:37] VITALS: TEMP 98.3; O2SAT 100
[2023-06-27 16:39] VITALS: BP 141/89
--- NOTE | 2023-06-30 07:59 | EKG ---
Test Date: 2023-06-27 Test Time: 12:35:57 Medical Billing Clerk: Jessica RUIZ MEASUREMENT RESULTS: Intervals: Rate: 73 OK: 162 QRSD: 86 QT: 390 QTc: 429 [place]: P: -6 OK: 162 QRS: 47 T: -6 INTERPRETIVE STATEMENTS: Normal sinus rhythm Normal ECG Compared to ECG 05/19/2023 10:34:31 No significant changes Electronically Signed On 06-30-23 07:52:52 CDT by Parmjit Yepez
== END 2023-06-27 16:30 | disposition home or self-care (01) ==
LOC: ER 12:21
DX: G40.509 Epileptic seizures related to external causes, not intractable, without status epilepticus (principal); F31.9 Bipolar disorder, unspecified; M79.7 Fibromyalgia; Z88.6 Allergy status to analgesic agent
CPT/HCPCS: 93005; 85025; 81001; 80048; 36415; 83735; 81025; 80076; 84484; 80307; 70450; 96374; 99285; J1953; J7030

== ENCOUNTER 2023-07-14 17:20 | Emergency (ER) | payer OTHER ==
--- OUTSIDE RECORDS SUMMARY | 2023-07-14 17:34 | XMS REPORT | Continuity of Care Document ---
:1995 Author Organization [facility] t Address [address] [facility] [address] [place] [address] Care Team Providers Name Role Phone No, Pcp [facility] Primary Care Physician Unavailable DARLIN VICK Attending Clinician Unavailable DORA WINN Attending Clinician Unavailable SHIRLEY BADILLO Attending Clinician Unavailable SANDRA WISDOM Attending Clinician Unavailable MD ARAVIND Attending Clinician Unavailable AKNDI GROSS Attending Clinician Unavailable LEI KIMBALL Attending Clinician Unavailable LAB90 Attending Clinician Unavailable ROBYN GARY Attending Clinician Unavailable JUVENCIO ORNELAS Attending Clinician Unavailable SYLVESTER HUTCHINSON Attending Clinician Unavailable Sylvester Quijano Attending Clinician BYRON MALHOTRA Attending Clinician Unavailable CARLIE BRIONES Attending Clinician Unavailable [id number] Attending Clinician Unavailable JONN SCHMIDT Attending Clinician Unavailable LUKE ANGELO Attending Clinician Unavailable GAURAV PURVIS Attending Clinician Unavailable ANGELICA NEVAREZ Attending Clinician Unavailable RACHEL MAHONEY Attending Clinician Unavailable Penafshayy PROFESSOR OF PATHOLOGY, Rachel Munoz Attending Clinician [phone] [facility] [place] Attending Clinician Unavailable KELSEY WANG Attending Clinician Unavailable SIMI JOHN Attending Clinician Unavailable OLENA TREVIÑO Attending Clinician Unavailable JAROD TURPIN Attending Clinician Unavailable RUSLAN Attending Clinician Unavailable JENNIFER BYNUM Attending Clinician Unavailable JALYN CRUZ Attending Clinician Unavailable MANOLO MARTINEZ Attending Clinician Unavailable GAUTAM GIVENS Attending Clinician Unavailable PL, TECH 1 Attending Clinician Unavailable LAB47 Attending Clinician Unavailable AMBREEN_LOREA Attending Clinician Unavailable ANNEMARIE GRAFF Attending Clinician Unavailable Alexandre Wick Attending Clinician SHEY BIANCHI Attending Clinician Unavailable Doctor Unassigned, [place] Attending Clinician Unavailable Shey Bianchi MD Attending [...] Date S dameon AETNA MP CVS 9 [id number] 2022 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 00:00: 00 Medical Branch Decreased Decreased Disease Active 2016-08 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 0-12 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 00:00: Medical Branch Pain Pain Disease Active 2016-08 Univers 0-12 ity of 00:00: Medical Branch 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 U sandyers impairment impairment 0-12 it y of 00:00: [...] Type Date Date Clinician Naproxen Propensi Active [facility] adverse [facility]: Medical reaction 00 Center s NAPROXEN Allergy Active [facility] 00:[facility]: Medical 00 Center Naproxen Propensi Active 2021-08 - Oral ty to 2-15 adverse 00:00: reaction 00 to drug Naproxen Propensi Active Other Jelena ty to 5-09 reaction( Seybold adverse 00:00: s): - reaction 00 Unknown Externa s l Naproxen Propensi Active Nausea Univer s ty to and/or 04-28 ity of adverse Vomiting 00:00: [place] reaction 00 [facility] NAPROXEN DRUG Active N/V Univers INGREDI 04-28 ity of 00:00: [place] 00 Medical Branch Codeine Propensi Active Jelena ty to 5-19 Seybold adverse 00:00: - reaction 00 Externa s l Naproxen Propensi Active ty to 5-19 adverse 00:00: reaction 00 to drug NO KNOWN Drug Active Univers ALLERGIE Class ity of S [facility] [place] Social History Social Habit Start Date Stop Date Quantity Comments Source Gender identity 2022-09-04 Identifies as Jelena Ibrahim - 10:33:35 male gender External (finding) History of tobacco Cigarette Smoker Jelena Ibrahim - use External History SDOH Jelena nolasco - Alcohol Frequency Externa l History SDOH Jelena Ashley ld - Alcohol Std Drinks Lye Boiler al History SDOH Jelena nolasco - Alcohol Binge External Exposure to Not sure University of SARS-CoV-2 (event) [facility] [place] Sexual orientation [facility] Alcohol intake 2023-07-01 2023-07-01 Current drinker Beth Ibrahim - 00:00:00 00:00:00 of alcohol External (finding) Tobacco use and 2022-12-22 2022-12-22 Smokeless tobacco Jc fieldey Seybold - exposure 00:00:00 00:00:00 non-user External Alcohol Comment 2022-09-09 2022-09-09 rare Jelena Guevara ybold - 00:00:00 00:00:00 External History of Social 2020-08-02 2020-08-02 Univers ity of function 00:00:00 00:00:00 [facility] [place] Tobacco Comment 2019-08-16 2019-08-16 Quit Universit y of 00:00:00 00:00:00 smoking/vaping [facility] earlier this year Branch Sex Assigned At [address] [facility] [address] [place] kes 00:00:00 00:00:00 [facility] Center Smoking Status Start Date Stop Date Source Occasional tobacco 2022-12-22 00:00:00 Jelena Guevara ybold - smoker External Never smoked tobacco Jelena Eaton old - External Ex-smoker 2019-10-25 00:00:00 2019-10-25 Strong o [facility] 00:00:00 [facility] Medications Ordered Filled Start Stop Current Ordering Indication Dosage Frequency Signature Comments Components Source Medication Medication Date Date Medication? Clinician (SIG) Name Name Amlodipine 2022-08 Yes 5mg Take 1 Kelse y Besylate 08-31 tablet (5 Seybol d (NORVASC) 5 11:21: mg total) - MG oral 13 by mouth Externa Tablet daily. l Cyanocobala 2022-08 Yes Take by Reynold sey min -01 mouth. Seybold (VITAMIN B 11:19: - 12 OR) 53 Externa l Dicyclomine 2022-08 Yes 20mg Take 1 Ashlie ey HCl 20 MG - tablet (20 Seyb old oral Tablet 11:19: mg total) - 53 by mouth Externa every 6 l (six) hours. Trazodone 2022-08 Yes every 24 Ashlie ey HCl 100 MG 1-01 hours Seybold oral Tablet 11:19: - 53 Externa l Topiramate 2022-08 Yes 2 BID. Kelse y 50 MG oral -01 Seybold Tablet 00:00: - 00 Externa l ACETAMINOPH 2022-08 Yes one Q 6 Reynold sey EN-BUTALBIT 1-01 hours PRN Sey bold AL 50-325 00:00: pain, do - MG oral 00 not Externa Tablet combine l with narcotics, benzodiaze pines, or actaminoph en containing compounds, do not drive. Meclizine 2022-08 Yes [id number] 25mg Q.[id number] Take 1 Jelena HCl 25 MG 0-31 [id number] tablet (25 Seybold oral Tablet 00:00: 3D mg total) - 00 by mouth 3 Externa times l daily as needed. hydroCHLORO 2022-08 Yes [id number] 25mg Take 2 Jelena thiazide 0-31 capsules Seybold 12.5 MG 00:00: (25 mg - oral 00 total) by Externa Capsule mouth l daily. Potassium 2022-08 Yes [id number] 1{tbl} Take 1 Jelena Chloride ER 0-31 tablet by Sey bold 20 MEQ oral 00:00: mouth 2 - Tab CR 00 times Externa daily. l Topiramate 2022-08 No 50mg TAKE ONE Ke lsey 50 MG oral 0-19 07-01 (1) Seybold Tablet 00:00: 00:00 TABLET(S) - 00 :00 BY MOUTH Externa EVERY l TWELVE HOURS. Ketorolac 2022-08 Yes [id number] TAKE ONE Jelena Tromethamin 0-16 (1) TABLET Se ybold e 10 MG 00:00: (10 MG - oral Tablet 00 TOTAL) BY Ext jonathan MOUTH l EVERY 6 HOURS NEEDED FOR PAIN. Cyanocobala Yes Take by Reynold sey min 9-28 mouth. Seybold (VITAMIN B 10:25: - 12 OR) 13 Externa l Dicyclomine Yes 20mg Take 1 Ashlie ey HCl 20 MG 9-28 tablet (20 Seyb old oral Tablet 10:25: mg total) - 13 by mouth Externa every 6 l (six) hours. Trazodone Yes every 24 Ashlie ey HCl 100 MG 9-28 hours Seybold oral Tablet 10:25: - 13 Externa l Topiramate Yes 50mg TAKE ONE Reynold sey 50 MG oral 9-20 (1) Seybold Tablet 00:00: TABLET(S) - 00 BY MOUTH Externa EVERY l TWELVE HOURS. Spacer/Aero Yes See Admin K elsey -Holding 9-11 Instructio Seybo ld Chambers 00:00: ns USE - (Compact 00 DIRECTED Externa Space WITH l Chamber/Lg INHALER. Mask) does not apply Device MELOXICAM 2022- No 10mg Take 10 mg K elsey OR 05-06-06 by mouth. Seybold 11:02: 00:00 - 12 :00 Externa l Dicyclomine 2022-0 Yes 20mg Take 1 Ashlie ey HCl 20 MG 05-06 tablet (20 Seyb old oral Tablet 10:32: mg total) - 52 by mouth Externa every 6 l (six) hours. Trazodone 0 Yes every 24 Ashlie ey HCl 100 MG 05-06 hours Seybold oral Tablet 10:32: - 52 Externa l Cyanocobala Yes Take by Reynold sey min - mouth. Seybold (VITAMIN B 10:32: - 12 OR) 52 Externa l Ketorolac 0 Yes [id number] 10mg Q.25D Take 1 Jelena Tromethamin 05-06 tablet (10 Se ybold e 10 MG 00:00: mg total) - oral Tablet 00 by mouth Exte rna every 6 l hours as needed for pain. Ketorolac Yes [id number] 10mg Q.25D Take 1 Jelena Tromethamin - tablet (10 Se ybold e 10 MG 00:00: mg total) - oral Tablet 00 by mouth Exte rna every 6 l hours as needed for pain. Ketorolac 2022- No [id number] 30mg Ke emirey Tromethamin 04-28 Seybold e (TORADOL) 14:00: 14:09 - 30 mg/mL 00 :00 Externa l Ketorolac 2022-0 2022- No [id number] 30mg 30 mg, Jelena Tromethamin 04-28 intramuscu S eybold e (TORADOL) 14:00: 14:09 lar, ONCE, - 30 mg/mL 00 :00 On Tue Externa 04/28/23 at l 0900, For 1 dose Cyanocobala 0 Yes Take by Reynold sey min 04-28 mouth Seybold (VITAMIN B [...] - 25 Externa l Losartan 2022-0 Yes [id number] 100mg TAKE ONE Jelena Potassium 8-28 (1) Seybold (COZAAR) 00:00: TABLET(S) - 100 MG oral 00 BY MOUTH Exte rna Tablet ONCE A l DAY. Aripiprazol 2022-0 Yes 1{tbl} Take 1 Ke lsey e 20 MG 8-28 tablet by Seybold oral Tablet 00:00: mouth at - 00 bedtime. Externa l Losartan 2022-0 Yes [id number] 100mg TAKE ONE Jelena Potassium 8-28 (1) Seybold (COZAAR) 00:00: TABLET(S) - 100 MG oral 00 BY MOUTH Exte rna Tablet ONCE A l DAY. Aripiprazol 2022-0 Yes 1{tbl} Take 1 Ke lsey e 20 MG 8-28 tablet by Seybold oral Tablet 00:00: mouth at - 00 bedtime. Externa l Losartan 2022-0 Yes [id number] 100mg TAKE ONE Jelena Potassium 8-28 (1) Seybold (COZAAR) 00:00: TABLET(S) - 100 MG oral 00 BY MOUTH Exte rna Tablet ONCE A l DAY. Aripiprazol 2022-0 Yes 1{tbl} Take 1 Ke lsey e 20 MG 8-28 tablet by Seybold oral Tablet 00:00: mouth at - 00 bedtime. Externa l Losartan 2022-0 Yes [id number] 100mg TAKE ONE Jelena Potassium 8-28 (1) [...] MG oral 54 :00 by mouth 4 Lye Boiler a Tablet times l daily. Aripiprazol 0 2022- No Abilify Jc lsey e (Abilify) 8-25 08-25 Seybold 10 MG oral 08:57: 00:00 - Tablet 54 :00 Externa l Fluticasone 2022-0 Yes [id number] 1{puff} Inhale 1 Jelena -Salmeterol 8-25 6 puff into Sey bold (Advair 00:00: the lungs - Diskus) 00 2 times Externa 100-50 daily. l MCG/ACT inhalation AEROSOL POWDER, BREATH ACTIVATED Fluticasone 2022-0 Yes [id number] 1{puff} Inhale 1 Jelena -Salmeterol 8-25 6 puff into Sey bold (Advair 00:00: the lungs - Diskus) 00 2 times Externa 100-50 daily. l MCG/ACT inhalation AEROSOL POWDER, BREATH ACTIVATED Fluticasone 3-0 Yes [id number] 1{puff} Inhale 1 Jelena -Salmeterol 8-25 6 puff into Sey bold (Advair 00:00: the lungs - Diskus) 00 2 times Externa 100-50 daily. l MCG/ACT inhalation AEROSOL POWDER, BREATH ACTIVATED Fluticasone 3-0 Yes [id number] 1{puff} Inhale 1 Jelena -Salmeterol 8-25 6 puff into Sey bold (Advair 00:00: the lungs - Diskus) 00 2 times Externa 100-50 daily. l MCG/ACT inhalation AEROSOL POWDER, BREATH ACTIVATED Fluticasone 2023-0 Yes [id number] 1{puff} Inhale 1 Jelena -Salmeterol 8-25 6 puff into Sey bold (Advair 00:00: the lungs - Diskus) 00 2 times Externa 100-50 daily. l MCG/ACT inhalation AEROSOL POWDER, BREATH ACTIVATED Fluticasone 2023-0 2023- No [id number] 1{puff} Inhale 1 Jelena -Salmeterol 8-25 08-25 6 puff into Se ybold (Advair 00:00: 00:00 the lungs - Diskus) 00 :00 2 times Externa 100-50 daily. l MCG/ACT inhalation AEROSOL POWDER, BREATH ACTIVATED Potassium 3-0 Yes [id number] 1{tbl} TAKE ONE Jelena Chloride ER 8-22 (1) Seybold 20 MEQ oral 00:00: TABLET(S) - Tab CR 00 BY MOUTH Externa DAILY. l Meclizine 3-0 Yes [id number] TAKE ONE Jelena HCl 25 MG 8-22 (1) Seybold oral Tablet 00:00: TABLET(S) - 00 BY MOUTH Externa THREE l TIMES A DAY NEEDED. FeroSul 325 2023-0 Yes [id number] TAKE ONE Jelena (65 Fe) MG 8-22 (1) TABLET Sey bold oral Tablet 00:00: (325 MG - 00 TOTAL) BY Externa MOUTH l DAILY (WITH BREAKFAST) . Topiramate 3-0 Yes 50mg Take 1 Kelse y 50 MG oral 8-22 tablet (50 Sey bold Tablet 00:00: mg total) - 00 by mouth Externa every 12 l hours. Potassium 2023-0 Yes [id number] 1{tbl} TAKE ONE Jelena Chloride ER 8-22 (1) Seybold 20 MEQ oral 00:00: TABLET(S) - Tab CR 00 BY MOUTH Externa DAILY. l Meclizine 2023-0 Yes [id number] TAKE ONE Jelena HCl 25 MG 8-22 (1) Seybold oral Tablet 00:00: TABLET(S) - 00 BY MOUTH Externa THREE l TIMES A DAY NEEDED. FeroSul 325 3-0 Yes [id number] TAKE ONE Jelena (65 Fe) MG 8-22 (1) TABLET Sey bold oral Tablet 00:00: (325 MG - 00 TOTAL) BY Externa MOUTH l DAILY (WITH BREAKFAST) . FeroSul 325 3-0 Yes [id number] TAKE ONE Jelena (65 Fe) MG 8-22 (1) TABLET Sey bold oral Tablet 00:00: (325 MG - 00 TOTAL) BY Externa MOUTH l DAILY (WITH BREAKFAST) . Potassium 2023-0 Yes [id number] 1{tbl} TAKE ONE Jelena Chloride ER 8-22 (1) Seybold 20 MEQ oral 00:00: TABLET(S) - Tab CR 00 BY MOUTH Externa DAILY. l Meclizine 3-0 Yes [id number] TAKE ONE Jelena HCl 25 MG 8-22 (1) Seybold oral Tablet 00:00: TABLET(S) - 00 BY MOUTH Externa THREE l TIMES A DAY NEEDED. FeroSul 325 2022-0 Yes [id number] TAKE ONE Jelena (65 Fe) MG 8-22 (1) TABLET Sey bold oral Tablet 00:00: (325 MG - 00 TOTAL) BY Externa MOUTH l DAILY (WITH BREAKFAST) . Topiramate 2023-0 Yes 50mg Take 1 Kelse y 50 MG oral 8-22 tablet (50 Sey bold Tablet 00:00: mg total) - 00 by mouth Externa every 12 l hours. Potassium 2023-0 Yes [id number] 1{tbl} TAKE ONE Jelena Chloride ER 8-22 (1) Seybold 20 MEQ oral 00:00: TABLET(S) - Tab CR 00 BY MOUTH Externa DAILY. l Meclizine 2023-0 Yes [id number] TAKE ONE Jelena HCl 25 MG 8-22 (1) Seybold oral Tablet 00:00: TABLET(S) - 00 BY MOUTH Externa THREE l TIMES A DAY NEEDED. FeroSul 325 3-0 Yes [id number] TAKE ONE Jelena (65 Fe) MG 8-22 [...] 00 :00 EVERY 12 Externa HOURS. l hydroCHLORO 2022-0 Yes 12.5mg QD Take [address] thiazide 8-17 tablet [facility] (HYDRODIURI 11:24: (12.5 mg Me dical L) 12.5 MG 00 total) by Cent er tablet mouth daily. hydrOXYzine 0 Yes 50mg Take [address] [facility] (ATARAX) 25 8-17 tablets [facility] MG tablet 11:24: (50 mg Medica l 00 total) by Center mouth 3 (three) times daily as needed for Itching. losartan 0 Yes 100mg QD Take [address] [facility] (COZAAR) 8-17 tablet [facility] 100 MG 11:24: (100 mg Medical tablet 00 total) by Center mouth daily. meclizine 0 Yes 25mg Take [address] [facility] (ANTIVERT) 8-17 tablet (25 Cesario es 25 MG 11:24: mg total) Medical tablet 00 by mouth 3 Center (three) times daily as needed. MELOXICAM Yes 10mg Take [address] ORAL 8-17 by mouth. [facility] 11:24: Medical 00 Center etonogestre 0 Yes 68mg [address] [facility] [address] [facility] L 8-17 Subdermal [facility] (Nexplanon) 11:24: route Medic al 68 mg 00 once. Center implant albuterol Yes 1{puff} Inhale 1 C HI [...] 00 total) by Center mouth daily. budesonide 2023-0 Yes 1{puff} Q.5D Inhale [address] [facility] [address] (PULMICORT) 8-17 puff by [facility] 180 11:24: mouth via Medical mcg/actuati [address] on inhaler (two) times daily. cholecalcif 2023-0 Yes [id number] Q7D Take [address] juan, 8-17 tablet [facility] vitamin D3, 11:24: (50,000 Med ical 1,250 mcg 00 Units Center (50,000 total) by unit) Tab mouth once a week. cyanocobala 2023-0 Yes 100ug QD Take [address] [facility] min 8-17 tablet [facility] (VITAMIN 11:24: (100 mcg Medic al B-12) 100 00 total) by Cente r MCG tablet mouth daily. cyclobenzap 202-0 Yes 10mg Take [address] [facility] rine [...] mouth. [facility] 11:24: Medical 00 Center etonogestre 3-0 Yes 68mg 68 mg by CH I [...] packet times daily. propranoloL 2023-0 Yes 10mg Q.[id number] Take [address] [facility] (INDERAL) 8-17 [id number] tablet (10 [facility] 10 MG 11:24: 3D mg total) Medical tablet 00 by mouth 3 Center (three) times daily. topiramate 2023-0 Yes 25mg Q.5D Take 1 [facility] (TOPAMAX) 8-17 tablet (25 Luke s 25 MG 11:24: mg total) Medical tablet 00 by mouth 2 Center (two) times daily. traMADoL 2023-0 Yes 50mg Take [address] [facility] (ULTRAM) 50 8-17 tablet (50 Alejandrina kes mg tablet 11:24: mg total) Med ical 00 by mouth Center every 6 (six) hours as needed for Pain. Max Daily Amount: 200 mg traZODone 2023-0 Yes 100mg QD Take 1 [facility] (DESYREL) 8-17 [facility] 100 MG 11:24: (100 mg Medical tablet 00 total) by Center mouth nightly. ondansetron 2023-0 Yes 4mg Take [address] [facility] (ZOFRAN-ODT [...] packet times daily. propranoloL 2023-0 Yes 10mg Q.[id number] Take [address] [facility] (INDERAL) 8-17 [id number] tablet (10 [facility] 10 MG 11:24: 3D mg total) Medical tablet 00 by mouth 3 Center (three) times daily. topiramate 2023-0 Yes 25mg Q.5D Take 1 [facility] (TOPAMAX) 8-17 tablet (25 Luke s 25 MG 11:24: mg total) Medical tablet 00 by mouth 2 Center (two) times daily. traMADoL 2023-0 Yes 50mg Take [address] [facility] (ULTRAM) 50 8-17 tablet (50 Alejandrina kes mg tablet 11:24: mg total) Med ical 00 by mouth Center every 6 (six) hours as needed for Pain. Max Daily Amount: 200 mg traZODone 2023-0 Yes 100mg QD Take 1 [facility] (DESYREL[facility] 100 MG 11:24: (100 mg Medical tablet 00 total) by Center mouth nightly. albuterol 2023-0 Yes 1{puff} Inhale [address] [...] inhaler (two) times daily. cholecalcif 2022-0 Yes [id number] Q7D Take [address] juan, [...] capsule mouth 2 (two) times daily. DULoxetine 3-0 Yes 30mg QD Take 1 [facility] [...] Center (three) times daily as needed. MELOXICAM 3-0 Yes 10mg Take 10 mg [facility] [...] packet times daily. propranoloL 2023-0 Yes 10mg Q.[id number] Take [address] [facility] [address] (INDERAL) 8-17 [id number] tablet (10 [facility] 10 MG 11:24: 3D [...] inhaler (two) times daily. cholecalcif 2022-0 Yes [id number] Q7D Take [address] juan, [...] daily as needed for Muscle spasms. dicyclomine 202-0 Yes 20mg Take [address] [facility] (BENTYL) 20 8-17 tablet (20 Alejandrina kes mg tablet 11:24: mg total) Med ical 00 by mouth Center every 6 (six) hours. docusate 202-0 Yes 100mg Q.5D Take [address] [facility] [address] [...] total) by Center mouth daily with breakfast. Cyanocobala 2022-0 Yes Take by Reynold sey min 7-12 mouth Seybold (VITAMIN B 10:25: - 12 OR) 36 Externa l Metoclopram 2022-0 Yes 10mg Take 1 Ashlie ey jonathan HCl 7-12 tablet (10 Seybol d (Reglan) 10 10:25: mg total) - MG oral 36 by mouth 4 Lye Boiler a Tablet times l daily Dicyclomine 2022-0 [...] A DAY l FOR 5 DAYS. Nebulizers 2022-0 Yes See Admin Ke lsey (Vios LC [...] A DAY l FOR 5 DAYS. Nebulizers 2022-0 Yes See Admin Ke lsey (Vios LC 6-24 Instructio Seybo ld Plus) does 00:00: ns. - not apply 00 Externa Misc l Albuterol 0 Yes INHALE ONE Ke lsey (PROVENTIL) 6-24 (1) VIAL Seyb old (2.5 00:00: VIA - MG/3ML) 00 NEBULIZER Externa 0.083% EVERY l inhalation EIGHT Inhalant HOURS Solution NEEDED. predniSONE Yes TAKE FOUR Ke lsey (DELTASONE) 6-24 (4) Seybold 10 MG oral 00:00: TABLET(S) - tablet 00 BY MOUTH Externa ONCE A DAY l FOR 5 DAYS. Nebulizers 2022-0 Yes See Admin Ke lsey (Vios LC 6-24 Instructio Seybo ld Plus) does 00:00: ns. - not apply 00 Externa Misc l Albuterol 0 Yes INHALE ONE Ke lsey (PROVENTIL) 6-24 (1) VIAL Seyb old (2.5 00:00: VIA - MG/3ML) 00 NEBULIZER Externa 0.083% EVERY l inhalation EIGHT Inhalant HOURS Solution NEEDED. predniSONE Yes TAKE FOUR Ke lsey (DELTASONE) 6-24 (4) Seybold 10 MG oral 00:00: TABLET(S) - tablet 00 BY MOUTH Externa ONCE A DAY l FOR 5 DAYS. Nebulizers 0 Yes See Admin Ke lsey (Vios LC 6-24 Instructio Seybo ld Plus) does 00:00: ns. - not apply 00 Externa Misc l Albuterol Yes INHALE ONE Ke lsey (PROVENTIL) 24 (1) VIAL Seyb old (2.5 00:00: VIA [...] - MG oral 18 by mouth 4 Lye Boiler a Tablet times l daily Dicyclomine 2022-0 [...] - 18 Externa l Propranolol 2022-0 Yes [id number] 10mg Take 1 Jelena HCl 10 MG 6-21 tablet (10 Seyb old oral Tablet 00:00: mg total) - 00 by mouth 3 Externa times l daily hydroCHLORO 2022-0 Yes [id number] 12.5mg Take 1 Jelena thiazide 6-21 capsule Seybold 12.5 MG 00:00: (12.5 mg - oral 00 total) by Externa Capsule mouth l daily Propranolol 2022-0 Yes [id number] 10mg Take 1 Jelena HCl 10 MG 6-21 tablet (10 Seyb old oral Tablet 00:00: mg total) - 00 by mouth 3 Externa times l daily hydroCHLORO 2023-0 Yes [id number] 12.5mg Take 1 Jelena thiazide 6-21 capsule Seybold 12.5 MG 00:00: (12.5 mg - oral 00 total) by Externa Capsule mouth l daily Propranolol 2023-0 Yes [id number] 10mg Take 1 Jelena HCl 10 MG 6-21 tablet (10 Seyb old oral Tablet 00:00: mg total) - 00 by mouth 3 Externa times l daily Potassium 2023-0 Yes [id number] 1{tbl} Take 1 Jelena Chloride ER 6-21 tablet by Sey bold 20 MEQ oral 00:00: mouth - Tab CR 00 daily Externa l Propranolol 2023-0 Yes [id number] 10mg Take 1 Jelena HCl 10 MG 6-21 tablet (10 Seyb old oral Tablet 00:00: mg total) - 00 by mouth 3 Externa times l daily Budesonide 2023-0 Yes [id number] Inhale 2 Jelena 90 MCG/ACT 6-21 inhalation Sey bold inhalation 00:00: s into the - AEROSOL 00 lungs Externa POWDER, daily l BREATH ACTIVATED hydroCHLORO 2023-0 Yes [id number] 12.5mg Take 1 Jelena thiazide 6-21 capsule Seybold 12.5 MG 00:00: (12.5 mg - oral 00 total) by Externa Capsule mouth l daily Potassium 2023-0 Yes [id number] 1{tbl} Take 1 Jelena Chloride ER 6-21 tablet by Sey bold 20 MEQ oral 00:00: mouth - Tab CR 00 daily Externa l Propranolol 2023-0 Yes [id number] 10mg Take 1 Jelena HCl 10 MG 6-21 tablet (10 Seyb old oral Tablet 00:00: mg total) - 00 by mouth 3 Externa times l daily Budesonide 2023-0 Yes [id number] Inhale 2 Jelena 90 MCG/ACT 6-21 inhalation Sey bold inhalation 00:00: s into the - AEROSOL 00 lungs Externa POWDER, daily l BREATH ACTIVATED hydroCHLORO 2023-0 Yes [id number] 12.5mg Take 1 Jelena thiazide 6-21 capsule Seybold 12.5 MG 00:00: (12.5 mg - oral 00 total) by Externa Capsule mouth l daily Propranolol 3-0 Yes [id number] 10mg Take 1 Jelena HCl 10 MG 6-21 tablet (10 Seyb old oral Tablet 00:00: mg total) - 00 by mouth 3 Externa times l daily hydroCHLORO 3-0 Yes [id number] 12.5mg Take 1 Jelena thiazide 6-21 capsule Seybold 12.5 MG 00:00: (12.5 mg - oral 00 total) by Externa Capsule mouth l daily Propranolol 2022-0 Yes [id number] 10mg Take 1 Jelena HCl 10 MG 6-21 tablet (10 Seyb old oral Tablet 00:00: mg total) - 00 by mouth 3 Externa times l daily hydroCHLORO 3-0 Yes [id number] 12.5mg Take 1 Jelena thiazide 6-21 capsule Seybold 12.5 MG 00:00: (12.5 mg - oral 00 total) by Externa Capsule mouth l daily Budesonide 2022-0 2022- No [id number] Inhale 2 Jelena 90 MCG/ACT 6-21 08-25 inhalation Se ybold inhalation 00:00: 00:00 s into the - AEROSOL 00 :00 lungs Externa POWDER, daily l BREATH ACTIVATED Meclizine 2022-0 Yes [id number] TAKE ONE Jelena HCl 25 MG 6-19 (1) Seybold oral Tablet 00:00: TABLET(S) - 00 BY MOUTH Externa THREE l TIMES A DAY NEEDED. Meclizine 2022-0 Yes [id number] TAKE ONE Jelena HCl 25 MG 6-19 (1) Seybold oral Tablet 00:00: TABLET(S) - 00 BY MOUTH Externa THREE l TIMES A DAY NEEDED. Gabapentin 2022-0 Yes [id number] 100mg Take 1 Jelena 100 MG oral 6-18 capsule Seybo ld Capsule 00:00: (100 mg - 00 total) by Externa mouth 3 l times daily Gabapentin 2022-0 2023- No [id number] 100mg Take 1 Jelena 100 MG oral 6-18 07-12 capsule Seyb old Capsule 00:00: 00:00 (100 mg - 00 :00 total) by Externa mouth 3 l times daily Losartan 2023-0 Yes [id number] 100mg Take 1 Ke lsey Potassium 6-05 tablet Seybold (COZAAR) 00:00: (100 mg - 100 MG oral 00 total) by Ext jonathan Tablet mouth l daily Losartan 2022-0 Yes [id number] 100mg Take 1 Ke lsey Potassium 6-05 tablet Seybold (COZAAR) 00:00: (100 mg - 100 MG oral 00 total) by Ext jonathan Tablet mouth l daily Losartan 3-0 Yes [id number] 100mg Take 1 Ke lsey Potassium 6-05 tablet Seybold (COZAAR) 00:00: (100 mg - 100 MG oral 00 total) by Ext jonathan Tablet mouth l daily Metoclopram 2022-0 Yes 10mg Take 1 Ashlie ey jonathan HCl 5-31 tablet (10 Seybol d (Reglan) 10 10:58: mg total) - MG oral 34 by mouth 4 Lye Boiler a Tablet times l daily Dicyclomine 2022-0 [...] then 2 po q 12 hrs, Topiramate 2022-0 Yes Topamax Ashlie ey (Topamax) 5-31 25mg Start Seyb old 25 MG oral 00:00: 1 po qd x - Tablet 00 3 days, 1 Externa po q 12 l hrs x 3 days, then 2 po q 12 hrs, Meclizine 2022-0 Yes [id number] TAKE ONE Jelena HCl 25 MG 5-22 (1) Seybold oral Tablet 00:00: TABLET(S) - 00 BY MOUTH Externa THREE l TIMES A DAY NEEDED. Meclizine 2022-0 3- No [id number] TAKE ONE Jelena HCl 25 MG 5-22 06-19 (1) Seybold oral Tablet 00:00: 00:00 TABLET(S) - 00 :00 BY MOUTH Externa THREE l TIMES A DAY NEEDED. Losartan 3-0 Yes [id number] 1{tbl} Take 1 K elsey Potassium-H 5-15 tablet by Lit romano CTZ 50-12.5 00:00: mouth - MG oral 00 daily Externa Tablet l Gabapentin 2022-0 Yes [id number] 100mg Take 1 Jelena 100 MG oral 5-15 capsule Seybo ld Capsule 00:00: (100 mg - 00 total) by Externa mouth 3 l times daily Gabapentin 2022-0 2023- No [id number] 100mg Take 1 Jelena 100 MG oral 5-15 06-16 capsule Seyb old Capsule 00:00: 00:00 (100 mg - 00 :00 total) by Externa mouth 3 l times daily Cholecalcif 2022-0 Yes Jelena juan 5-06 Seybold (Vitamin 00:00: - D3) 1.25 MG 00 Externa (76326 UT) l oral Capsule Cholecalcif 2023-0 Yes Jelena juan 5-06 Seybold (Vitamin 00:00: - D3) 1.25 MG 00 Externa (06807 UT) l oral Capsule Cholecalcif 3-0 Yes Jelena juan 5-06 Seybold (Vitamin 00:00: - D3) 1.25 MG 00 Externa (24674 UT) l oral Capsule Cholecalcif 2022-0 Yes TAKE ONE Ke lsey juan 5-06 (1) Seybold (Vitamin 00:00: CAPSULE(S) - D3) 1.25 MG 00 BY MOUTH Exte rna (25525 UT) TWICE A l oral WEEK. Capsule Cholecalcif 2023-0 Yes TAKE ONE Ke lsey juan 5-06 (1) Seybold (Vitamin 00:00: CAPSULE(S) - D3) 1.25 MG 00 BY MOUTH Exte rna (08356 UT) TWICE A l oral WEEK. Capsule Cholecalcif 2023-0 Yes TAKE ONE Ke lsey juan 5-06 (1) Seybold (Vitamin 00:00: CAPSULE(S) - D3) 1.25 MG 00 BY MOUTH Exte rna (35100 UT) TWICE A l oral WEEK. Capsule Cholecalcif 2023-0 Yes Jelena juan 5-06 Seybold (Vitamin 00:00: - D3) 1.25 MG 00 Externa (59998 UT) l oral Capsule Trazodone 2022-0 3- No [id number] 100mg Take 1 Jelena HCl 100 MG 5-01 05-01 tablet Seybol d oral Tablet 11:10: 00:00 (100 mg - 14 :00 total) by Externa mouth at l bedtime Cyanocobala 2022-0 Yes Take by Reynold sey min 5-01 mouth Seybold (VITAMIN B 09:56: - 12 OR) 28 Externa l Tramadol 0 Yes [id number] 50mg Q.25D Take 1 K elsey HCl 5-01 tablet (50 Seybold (ULTRAM) 50 00:00: mg total) - MG oral 00 by mouth Externa Tablet every 6 l hours as needed for pain Tramadol 0 Yes [id number] 50mg Q.25D Take 1 K elsey HCl 5-01 tablet (50 Seybold (ULTRAM) 50 00:00: mg total) - MG oral 00 by mouth Externa Tablet every 6 l hours as needed for pain Tramadol 2022-0 Yes [id number] 50mg Q.25D Take 1 K elsey HCl 5-01 tablet (50 Seybold (ULTRAM) 50 00:00: mg total) - MG oral 00 by mouth Externa Tablet every 6 l hours as needed for pain Tramadol 0 Yes [id number] 50mg Q.25D Take 1 K elsey HCl 5-01 tablet (50 Seybold (ULTRAM) 50 00:00: mg total) - MG oral 00 by mouth Externa Tablet every 6 l hours as needed for pain Tramadol 2022-0 202- No [id number] 50mg Q.25D Take 1 Jelena HCl 5-01 [...] - 00 Externa l Trazodone 3-0 Yes [id number] 100mg Take 1 K elsey HCl 100 MG 4-24 tablet Seybold oral Tablet 08:55: (100 mg - 22 total) by Externa mouth at l bedtime Cyanocobala 2022-0 Yes Take by Reynold sey min 4-24 mouth Seybold (VITAMIN B 08:55: - 12 OR) 22 Externa l Albuterol 2022-0 Yes [id number] 2{puff} Q.25D Inhale 2 Jelena HFA 108 (90 4-24 puffs into Se ybold Base) 00:00: the lungs - MCG/ACT IN 00 every 6 Lye Boiler a AERS hours as l needed for wheezing or shortness of breath Albuterol 2022-0 Yes [id number] 2{puff} Q.25D Inhale 2 Jelena HFA 108 (90 4-24 puffs into Se ybold [employer]) 00:00: the lungs - MCG/ACT IN 00 every 6 Lye Boiler a AERS hours as l needed for wheezing or shortness of breath Albuterol 2022-0 Yes [id number] 2{puff} Q.25D Inhale 2 Jelena HFA 108 (90 4-24 puffs into Se [facility] [employer]) 00:00: the lungs - MCG/ACT IN 00 every 6 Lye Boiler a AERS hours as l needed for wheezing or shortness of breath Albuterol 2022-0 Yes [id number] 2{puff} Q.25D Inhale 2 Jelena HFA 108 (90 4-24 puffs into Se [facility] [employer]) 00:00: the lungs - MCG/ACT IN 00 every 6 Lye Boiler a AERS hours as l needed for wheezing or shortness of breath Meclizine 2022-0 Yes [id number] TAKE ONE Jelena HCl 25 MG 4-24 (1) Seybold oral Tablet 00:00: TABLET(S) - 00 BY MOUTH Externa THREE l TIMES A DAY NEEDED. Albuterol 2022-0 Yes [id number] 2{puff} Q.25D Inhale 2 Jelena HFA 108 (90 4-24 puffs into Se [facility] [employer]) 00:00: the lungs - MCG/ACT IN 00 every 6 Lye Boiler a AERS hours as l needed for wheezing or shortness of breath Albuterol 2022-0 Yes [id number] 2{puff} Q.25D Inhale 2 Jelena HFA 108 (90 4-24 puffs into Se [employer]) 00:00: the lungs - MCG/ACT IN 00 every 6 Lye Boiler a AERS hours as l needed for wheezing or shortness of breath Albuterol 2022-0 Yes [id number] 2{puff} Q.25D Inhale 2 Jelena HFA 108 (90 4-24 puffs into Se [facility] [employer]) 00:00: the lungs - MCG/ACT IN 00 every 6 Lye Boiler a AERS hours as l needed for wheezing or shortness of breath Albuterol 2022-0 Yes [id number] 2{puff} Q.25D Inhale 2 Jelena HFA 108 (90 4-24 puffs into Se [facility]) 00:00: the lungs - MCG/ACT IN 00 every 6 Lye Boiler a AERS hours as l needed for wheezing or shortness of breath Albuterol 2022-0 Yes [id number] 2{puff} Q.25D Inhale 2 Jelena HFA 108 (90 4-24 puffs into Se [employer]) 00:00: the lungs - MCG/ACT IN 00 every 6 Lye Boiler a AERS hours as l needed for wheezing or shortness of breath Albuterol 2022-0 Yes [id number] 2{puff} Q.25D Inhale 2 Jelena HFA 108 (90 4-24 puffs into Se [facility] [employer]) 00:00: the lungs - MCG/ACT IN 00 every 6 Lye Boiler a AERS hours as l needed for wheezing or shortness of breath Cyclobenzap 2023-0 Yes 10mg Q.[id number] Take 1 Jelena rine HCl 10 4-22 [id number] tablet (10 Seybold MG oral 00:00: 3D mg total) - Tablet 00 by mouth Externa every 8 l hours as needed. Cyclobenzap 2023-0 Yes 10mg Q.[id number] Take 1 Jelena rine HCl 10 4-22 [id number] tablet (10 Seybold MG oral 00:00: 3D mg total) - Tablet 00 by mouth Externa every 8 l hours as needed. Cyclobenzap 2023-0 Yes 10mg Q.[id number] Take 1 Jelena rine HCl 10 4-22 [id number] tablet (10 Seybold MG oral 00:00: 3D mg total) - Tablet 00 by mouth Externa every 8 l hours as needed. Cyclobenzap 2023-0 Yes 10mg Q.[id number] Take 1 Jelena rine HCl 10 4-22 [id number] tablet (10 Seybold MG oral 00:00: 3D mg total) - Tablet 00 by mouth Externa every 8 l hours as needed Cyclobenzap 2023-0 Yes 10mg Q.[id number] Take 1 Jelena rine HCl 10 4-22 [id number] tablet (10 Seybold MG oral 00:00: 3D mg total) - Tablet 00 by mouth Externa every 8 l hours as needed Cyclobenzap 2023-0 Yes 10mg Q.[id number] Take 1 Jelena rine HCl 10 4-22 [id number] tablet (10 Seybold MG oral 00:00: 3D mg total) - Tablet 00 by mouth Externa every 8 l hours as needed Cyclobenzap 2023-0 Yes 10mg Q.[id number] Take 1 Jelena rine HCl 10 4-22 [id number] tablet (10 Seybold MG oral 00:00: 3D mg total) - Tablet 00 by mouth Externa every 8 l hours as needed Cyclobenzap 2023-0 Yes 10mg Q.[id number] Take 1 Jelena rine HCl 10 4-22 [id number] tablet (10 Seybold MG oral 00:00: 3D mg total) - Tablet 00 by mouth Externa every 8 l hours as needed Cyclobenzap 2023-0 Yes 10mg Q.[id number] Take 1 Jelena rine HCl 10 -22 [id number] tablet (10 Seybold MG oral 00:00: 3D mg total) - Tablet 00 by mouth Externa every 8 l hours as needed Cyclobenzap 2023-0 Yes 10mg Q.[id number] Take 1 Jelena rine HCl 10 12-20 [id number] tablet (10 Seybold MG oral 00:00: 3D mg total) - Tablet 00 by mouth Externa every 8 l hours as needed. Gabapentin 3-0 Yes [id number] 100mg Take 1 Jelena 100 MG oral 4-20 capsule Seybo ld Capsule 00:00: (100 mg - 00 total) by Externa mouth 3 l times daily Gabapentin 2023-0 Yes [id number] 100mg Take 1 Jelena 100 MG oral [...] Externa at l bedtime. Trazodone 3-0 Yes [id number] 100mg Take 1 K elsey HCl 100 MG 4-13 tablet Seybold oral Tablet 10:58: (100 mg - 09 total) by Externa mouth at l bedtime Cyanocobala 3-0 Yes Take by Reynold sey min 4-13 mouth Seybold (VITAMIN B 10:58: - 12 OR) 09 Externa l Trazodone 3-0 Yes [id number] 100mg Take 1 K elsey HCl 100 MG 4-10 tablet Seybold oral Tablet 11:00: (100 mg - 07 total) by Externa mouth at l bedtime Cyanocobala 3-0 Yes Take by Reynold sey min 4-10 [...] Release daily as needed. Propranolol 2023-0 Yes [id number] TAKE ONE Jelena HCl 10 MG 4-10 (1) Seybold oral Tablet 00:00: TABLET(S) - 00 BY MOUTH Externa THREE l TIMES A DAY. Propranolol 2023-0 Yes [id number] TAKE ONE Jelena HCl 10 MG 4-10 [...] Release daily as needed Propranolol 2023-0 Yes [id number] TAKE ONE Jelena HCl 10 MG 4-10 (1) Seybold oral Tablet 00:00: TABLET(S) - 00 BY MOUTH Externa THREE l TIMES A DAY. Orphenadrin 2023-0 Yes 100mg Q.5D Take 1 Reynold sey e Citrate 4-10 tablet Seybold CR 100 MG 00:00: (100 mg - oral Tablet 00 total) by Ext jontahan 12 Hour mouth 2 l Sustained times Release daily as needed Propranolol 2023-0 Yes [id number] TAKE ONE Jelena HCl 10 MG 4-10 [...] Orphenadrin 2023-0 Yes 100mg Q.5D Take 1 Reynlod sey e Citrate 4-10 tablet Seybold CR 100 MG 00:00: (100 mg - oral Tablet 00 total) by Ext jonathan 12 Hour mouth 2 l Sustained times Release daily as needed. Propranolol 3-0 3- No [id number] TAKE ONE Jelena HCl 10 MG 4-10 06-21 (1) Seybold oral Tablet 00:00: 00:00 TABLET(S) - 00 :00 BY MOUTH Externa THREE l TIMES A DAY. Meloxicam 2023-0 Yes [id number] 15mg Take 1 Jelena 15 MG oral 4-06 tablet (15 Sey bold Tablet 00:00: mg total) - 00 by mouth Externa daily l Meloxicam 2023-0 Yes [id number] 15mg Take 1 Jelena 15 MG oral 4-06 tablet (15 Sey bold Tablet 00:00: mg total) - 00 by mouth Externa daily l Meloxicam 2023-0 Yes [id number] 15mg Take 1 Jelena 15 MG oral 4-06 tablet (15 Sey bold Tablet 00:00: mg total) - 00 by mouth Externa daily l Meloxicam 2023-0 Yes [id number] 15mg Take 1 Jelena 15 MG oral 4-06 tablet (15 Sey bold Tablet 00:00: mg total) - 00 by mouth Externa daily l Meloxicam 2023-0 Yes [id number] 15mg Take 1 Jelena 15 MG oral 4-06 tablet (15 Sey bold Tablet 00:00: mg total) - 00 by mouth Externa daily l Meloxicam 2023-0 Yes [id number] 15mg Take 1 Jelena 15 MG oral 4-06 tablet (15 Sey bold Tablet 00:00: mg total) - 00 by mouth Externa daily l Meloxicam 2023-0 Yes [id number] 15mg Take 1 Jelena 15 MG oral 4-06 tablet (15 Sey bold Tablet 00:00: mg total) - 00 by mouth Externa daily l Meloxicam 2023-0 Yes [id number] 15mg Take 1 Jelena 15 MG oral 4-06 tablet (15 Sey bold Tablet 00:00: mg total) - 00 by mouth Externa daily l Meloxicam 2023-0 Yes [id number] 15mg Take 1 Jelena 15 MG oral 4-06 tablet (15 Sey bold Tablet 00:00: mg total) - 00 by mouth Externa daily l Meloxicam 2023-0 2023- No [id number] 15mg Take 1 Jelena 15 MG oral [...] mouth l every morning. Meclizine 2023-0 Yes [id number] TAKE ONE Jelena HCl 25 MG 3-24 (1) Seybold oral Tablet 00:00: TABLET(S) - 00 BY MOUTH Externa THREE l TIMES A DAY NEEDED. Meclizine 2023-0 Yes [id number] TAKE ONE Jelena HCl 25 MG 3-24 (1) Seybold oral Tablet 00:00: TABLET(S) - 00 BY MOUTH Externa THREE l TIMES A DAY NEEDED. Meclizine 2023-0 Yes [id number] TAKE ONE Jelena HCl 25 MG 3-24 (1) Seybold oral Tablet 00:00: TABLET(S) - 00 BY MOUTH Externa THREE l TIMES A DAY NEEDED. Losartan 2023-0 Yes [id number] 1{tbl} Take 1 K elsey Potassium-H 3-22 tablet by Sey bold CTZ 50-12.5 00:00: mouth - MG oral 00 daily Externa Tablet l Losartan 2023-0 Yes [id number] 1{tbl} Take 1 K elsey Potassium-H 3-22 tablet by Sey bold CTZ 50-12.5 00:00: mouth - MG oral 00 daily Externa Tablet l Losartan 2023-0 Yes [id number] 1{tbl} Take 1 K elsey Potassium-H 3-22 tablet by Sey bold CTZ 50-12.5 00:00: mouth - MG oral 00 daily Externa Tablet l Losartan 2022-0 Yes [id number] 1{tbl} Take 1 K elsey Potassium-H 3-22 tablet by Lit bold CTZ 50-12.5 00:00: mouth - MG oral 00 daily Externa Tablet l Propranolol 2022-0 2022- No [id number] TAKE ONE Jelena HCl 10 MG 3-10 04-10 (1) Seybold oral Tablet 00:00: 00:00 TABLET(S) - 00 :00 BY MOUTH Externa THREE l TIMES A DAY. Cholecalcif 2022-0 2022- No [id number] 43696H Take 1 Jelena juan 1.25 3-02 04-10 capsule Seybol d MG ([id number] 00:00: 00:00 (50,000 - UT) oral 00 :00 units Externa Capsule total) by l mouth twice a week for 8 doses Trazodone 2022-0 Yes [id number] 100mg Take 100 Jelena HCl 100 MG [...] DAY. hydroCHLORO 2023-0 Yes TAKE ONE Ke ey thiazide 2-23 (1) Seybold 12.5 MG 00:00: CAPSULE(S) - oral 00 BY MOUTH Externa Capsule ONCE A l DAY. hydrOXYzine 2023-0 Yes 50mg Q.[id number] Take 1 Jelena HCl 50 MG 2-13 [id number] tablet (50 Seybold oral Tablet 00:00: 3D mg total) - 00 by mouth Externa every 8 l hours as needed. hydrOXYzine 2023-0 Yes 50mg Q.[id number] Take 1 Jelena HCl 50 MG 2-13 [id number] tablet (50 Seybold oral Tablet 00:00: 3D mg total) - 00 by mouth Externa every 8 l hours as needed. hydrOXYzine 2023-0 Yes 50mg Q.[id number] Take 1 Jelena HCl 50 MG 2-13 [id number] tablet (50 Seybold oral Tablet 00:00: 3D mg total) - 00 by mouth Externa every 8 l hours as needed. hydrOXYzine 2023-0 Yes 50mg Q.[id number] Take 1 Jelena HCl 50 MG 2-13 [id number] tablet (50 Seybold oral Tablet 00:00: 3D mg total) - 00 by mouth Externa every 8 l hours as needed hydrOXYzine 2023-0 Yes 50mg Q.[id number] Take 1 Jelena HCl 50 MG 2-13 [id number] tablet (50 Seybold oral Tablet 00:00: 3D mg total) - 00 by mouth Externa every 8 l hours as needed hydrOXYzine 2023-0 Yes 50mg Q.[id number] Take 1 Jelena HCl 50 MG 2-13 [id number] tablet (50 Seybold oral Tablet 00:00: 3D mg total) - 00 by mouth Externa every 8 l hours as needed hydrOXYzine 2023-0 Yes 50mg Q.23009000 Take 1 Jelena HCl 50 MG 2-13 [id number] tablet (50 Seybold oral Tablet 00:00: 3D mg total) - 00 by mouth Externa every 8 l hours as needed hydrOXYzine 2023-0 Yes 50mg Q.[id number] Take 1 Jelena HCl 50 MG 2-13 [id number] tablet (50 Seybold oral Tablet 00:00: 3D mg total) - 00 by mouth Externa every 8 l hours as needed hydrOXYzine 2023-0 Yes 50mg Q.[id number] Take 1 Jelena HCl 50 MG 2-13 [id number] tablet (50 Seybold oral Tablet 00:00: 3D mg total) - 00 by mouth Externa every 8 l hours as needed. hydrOXYzine 2022-0 Yes 50mg Q.[id number] Take 1 Jelena HCl 50 MG 2-13 [id number] tablet (50 Seybold oral Tablet 00:00: 3D mg total) - 00 by mouth Externa every 8 l hours as needed. Losartan 2022-0 Yes [id number] 1{tbl} Take 1 K elsey Potassium-H 2-10 tablet by [employer] bold CTZ 50-12.5 00:00: mouth - MG oral 00 daily Externa Tablet l Meclizine 2022-0 Yes [id number] 25mg Q.[id number] Take 1 Jelena HCl 25 MG 2-10 [id number] tablet (25 Seybold oral Tablet 00:00: 3D mg total) - 00 by mouth 3 Externa times l daily as needed Propranolol 2023-0 Yes [id number] 10mg Take 1 Jelena HCl 10 MG 2-10 tablet (10 Seyb old oral Tablet 00:00: mg total) - 00 by mouth 3 Externa times l daily Losartan 2022-0 Yes [id number] 1{tbl} Take 1 K elsey Potassium-H 2-10 tablet by [employer] bold CTZ 50-12.5 00:00: mouth - MG oral 00 daily Externa Tablet l Meclizine 3-0 Yes [id number] 25mg Q.[id number] Take 1 Jelena HCl 25 MG 2-10 [id number] tablet (25 Seybold oral Tablet 00:00: 3D mg total) - 00 by mouth 3 Externa times l daily as needed Propranolol 2023-0 Yes [id number] 10mg Take 1 Jelena HCl 10 MG 2-10 tablet (10 Seyb old oral Tablet 00:00: mg total) - 00 by mouth 3 Externa times l daily Doxycycline 2023-0 Yes [id number] 100mg Take 1 Jelena Hyclate 100 1- tablet Seybol d MG oral 00:00: (100 mg - Tablet 00 total) by Externa mouth 2 l times daily Doxycycline 2022- No [id number] 100mg Take 1 Jelena Hyclate 100 09-30-28 tablet Seybo ld MG oral 00:00: 00:00 (100 mg - Tablet 00 :00 total) by Externa mouth 2 l times daily Trulicity Yes [id number] .75mg Inject Jelena 0.75 1-28 0.75 mg Seybold MG/0.5ML 00:00: into the - subcutaneou 00 skin once Ext jonathan s Solution a week l Pen-injecto r Trulicity Yes [id number] .75mg Inject Jelena 0.75 1-28 0.75 mg Seybold MG/0.5ML 00:00: into the - subcutaneou 00 skin once Ext jonathan s Solution a week l Pen-injecto r Trulicity Yes [id number] .75mg Inject Jelena 0.75 1-28 0.75 mg Seybold MG/0.5ML 00:00: into the - subcutaneou 00 skin once Ext jonathan s Solution a week l Pen-injecto r Trulicity Yes [id number] .75mg Inject Jelena 0.75 1-28 0.75 mg Seybold MG/0.5ML 00:00: into the - subcutaneou 00 skin once Ext jonathan s Solution a week l Pen-injecto r Aripiprazol 2022- No Kelse y e 20 MG 1-25 -25 Seybold oral Tablet 11:11: 00:00 - 39 :00 Externa l Aripiprazol 2022- No [id number] 10mg Take 10 mg Jelena e 10 MG 1-25 -25 by mouth 2 Seybo ld oral Tablet 11:11: 00:00 times - 26 :00 daily Externa l Trazodone Yes [id number] 100mg Take 100 Jelena HCl 100 MG 1-25 mg by Seybold oral Tablet 10:31: mouth at - 22 bedtime Externa l Cyanocobala Yes Take by Reynold sey min 1-25 mouth Seybold (VITAMIN B 10:31: - 12 OR) 22 Externa l Trazodone Yes [id number] 100mg Take 100 Jelena HCl 100 MG 1-25 mg by Seybold oral Tablet 10:31: mouth at - 22 bedtime Externa l Cyanocobala Yes Take by Reynold sey min 1-25 mouth Seybold (VITAMIN B 10:31: - 12 OR) 22 Externa l hydroCHLORO Yes [id number] 12.5mg Take 1 Jelena thiazide 1-25 capsule Seybold 12.5 MG 00:00: (12.5 mg - oral 00 total) by Externa Capsule mouth l daily Ondansetron Yes [id number] 4mg Q.[id number] Take 1 Jelena (ZOFRAN) 4 1-25 [id number] tablet (4 Seybold MG oral 00:00: 3D mg total) - TABLET 00 by mouth Externa DISPERSIBLE every 8 l hours as needed for nausea Tirzepatide Yes [id number] 2.5mg Inject 0.5 Jelena (Mounjaro) 1-25 mL (2.5 mg Sey bold 2.5 00:00: total) - MG/0.5ML 00 into the Externa subcutaneou skin once l s Solution a week Pen-injecto r Celecoxib Yes [id number] 200mg Take 1 Jelena (CeleBREX) 1-25 capsule Seybol d 200 MG oral 00:00: (200 mg - Capsule 00 total) by Externa mouth 2 l times daily Gabapentin Yes [id number] 100mg Take 1 Jelena 100 MG oral 1-25 capsule Seybo ld Capsule 00:00: (100 mg - 00 total) by Externa mouth 3 l times daily Ondansetron Yes [id number] 4mg Q.[id number] Take 1 Jelena (ZOFRAN) 4 1-25 [id number] tablet (4 Seybold MG oral 00:00: 3D mg total) - TABLET 00 by mouth Externa DISPERSIBLE every 8 l hours as needed for nausea Ondansetron Yes [id number] 4mg Q.[id number] Take 1 Jelena (ZOFRAN) 4 1-25 [id number] tablet (4 Seybold MG oral 00:00: 3D mg total) - TABLET 00 by mouth Externa DISPERSIBLE every 8 l hours as needed for nausea Ondansetron 3-0 Yes [id number] 4mg Q.[id number] Take 1 Jelena (ZOFRAN) 4 1-25 [id number] tablet (4 Seybold MG oral 00:00: 3D mg total) - TABLET 00 by mouth Externa DISPERSIBLE every 8 l hours as needed for nausea Celecoxib 2022-0 Yes [id number] 200mg Take 1 Jelena (CeleBREX) 1-25 capsule Seybol d 200 MG oral 00:00: (200 mg - Capsule 00 total) by Externa mouth 2 l times daily Gabapentin 2022-0 Yes [id number] 100mg Take 1 Jelena 100 MG oral 1-25 capsule Seybo ld Capsule 00:00: (100 mg - 00 total) by Externa mouth 3 l times daily Ondansetron 2022-0 Yes [id number] 4mg Q.[id number] Take 1 Jelena (ZOFRAN) 4 1-25 [id number] tablet (4 Seybold MG oral 00:00: 3D mg total) - TABLET 00 by mouth Externa DISPERSIBLE every 8 l hours as needed for nausea Celecoxib 2022-0 Yes [id number] 200mg Take 1 Jelena (CeleBREX) 1-25 capsule Seybol d 200 MG oral 00:00: (200 mg - Capsule 00 total) by Externa mouth 2 l times daily Gabapentin 3-0 Yes [id number] 100mg Take 1 Jelena 100 MG oral 1-25 capsule Seybo ld Capsule 00:00: (100 mg - 00 total) by Externa mouth 3 l times daily Ondansetron 3-0 Yes [id number] 4mg Q.[id number] Take 1 Jelena (ZOFRAN) 4 1-25 [id number] tablet (4 Seybold MG oral 00:00: 3D mg total) - TABLET 00 by mouth Externa DISPERSIBLE every 8 l hours as needed for nausea Gabapentin 3-0 Yes [id number] 100mg Take 1 Jelena 100 MG oral 1-25 capsule Seybo ld Capsule 00:00: (100 mg - 00 total) by Externa mouth 3 l times daily Ondansetron 3-0 Yes [id number] 4mg Q.[id number] Take 1 Jelena (ZOFRAN) 4 1-25 [id number] tablet (4 Seybold MG oral 00:00: 3D mg total) - TABLET 00 by mouth Externa DISPERSIBLE every 8 l hours as needed for nausea Gabapentin 2022-0 Yes [id number] 100mg Take 1 Jelena 100 MG oral 1-25 capsule Seybo ld Capsule 00:00: (100 mg - 00 total) by Externa mouth 3 l times daily Ondansetron 2022-0 Yes [id number] 4mg Q.[id number] Take 1 Jelena (ZOFRAN) 4 1-25 [id number] tablet (4 Seybold MG oral 00:00: 3D mg total) - TABLET 00 by mouth Externa DISPERSIBLE every 8 l hours as needed for nausea Ondansetron 2022-0 Yes [id number] 4mg Q.[id number] Take 1 Jelena (ZOFRAN) 4 1-25 [id number] tablet (4 Seybold MG oral 00:00: 3D mg total) - TABLET 00 by mouth Externa DISPERSIBLE every 8 l hours as needed for nausea Ondansetron 2022-0 Yes [id number] 4mg Q.[id number] Take 1 Jelena (ZOFRAN) 4 1-25 [id number] tablet (4 Seybold MG oral 00:00: 3D mg total) - TABLET 00 by mouth Externa DISPERSIBLE every 8 l hours as needed for nausea Ondansetron 3-0 Yes [id number] 4mg Q.[id number] Take 1 Jelena (ZOFRAN) 4 1-25 [id number] tablet (4 Seybold MG oral 00:00: 3D mg total) - TABLET 00 by mouth Externa DISPERSIBLE every 8 l hours as needed for nausea Ondansetron 3-0 Yes [id number] 4mg Q.[id number] Take 1 Jelena (ZOFRAN) 4 1-25 [id number] tablet (4 Seybold MG oral 00:00: 3D mg total) - TABLET 00 by mouth Externa DISPERSIBLE every 8 l hours as needed for nausea Ondansetron 2022-0 Yes [id number] 4mg Q.[id number] Take 1 Jelena (ZOFRAN) 4 1-25 [id number] tablet (4 Seybold MG oral 00:00: 3D mg total) - TABLET 00 by mouth Externa DISPERSIBLE every 8 l hours as needed for nausea Ondansetron 2022-0 Yes [id number] 4mg Q.[id number] Take 1 Jelena (ZOFRAN) 4 1-25 [id number] tablet (4 Seybold MG oral 00:00: 3D mg total) - TABLET 00 by mouth Externa DISPERSIBLE every 8 l hours as needed for nausea Ondansetron 2022-0 Yes [id number] 4mg Q.[id number] Take 1 Jelena (ZOFRAN) 4 1-25 [id number] tablet (4 Seybold MG oral 00:00: 3D mg total) - TABLET 00 by mouth Externa DISPERSIBLE every 8 l hours as needed for nausea hydroCHLORO 2022-0 2023- No [id number] 12.5mg Take 1 Jelena thiazide 25 02-10 [...] - s Implant 00 Externa l Nexplanon 202-0 Yes Jelena 68 MG 1-23 Seybold subcutaneou [...] Implant 00 Externa l Docusate 2022-0 Yes [id number] 100mg Take 1 Ke lsey Sodium 1-13 capsule Seybold (Colace) 00:00: (100 mg - 100 MG oral 00 total) by Ext jonathan Capsule mouth l daily Docusate 2022-0 Yes [id number] 100mg Take 1 Ke lsey Sodium 1-13 capsule Seybold (Colace) 00:00: (100 mg - 100 MG oral 00 total) by Ext jonathan Capsule mouth l daily Docusate 2022-0 Yes [id number] 100mg Take 1 Ke lsey Sodium 1-13 capsule Seybold (Colace) 00:00: (100 mg - 100 MG oral 00 total) by Ext jonathan Capsule mouth l daily Ferrous 2022-0 Yes [id number] 325mg Take 1 Reynold sey Sulfate 1-13 tablet Seybold (Iron) 325 00:00: (325 mg - (65 Fe) MG 00 total) by Exte rna oral Tablet mouth l daily (with breakfast) Docusate 2022-0 Yes [id number] 100mg Take 1 Ke lsey Sodium 1-13 capsule Seybold (Colace) 00:00: (100 mg - 100 MG oral 00 total) by Ext jonathan Capsule mouth l daily Ferrous 0 Yes [id number] 325mg Take 1 Reynold sey Sulfate 1-13 tablet Seybold (Iron) 325 00:00: (325 mg - (65 Fe) MG 00 total) by Exte rna oral Tablet mouth l daily (with breakfast) Docusate 0 Yes [id number] 100mg Take 1 Ke lsey Sodium 1-13 capsule Seybold (Colace) 00:00: (100 mg - 100 MG oral 00 total) by Ext jonathan Capsule mouth l daily Ferrous 0 Yes [id number] 325mg Take 1 Reynold sey Sulfate 1-13 tablet Seybold (Iron) 325 00:00: (325 mg - (65 Fe) MG 00 total) by Exte rna oral Tablet mouth l daily (with breakfast) Docusate 0 Yes [id number] 100mg Take 1 Ke lsey Sodium 1-13 capsule Seybold (Colace) 00:00: (100 mg - 100 MG oral 00 total) by Ext jonathan Capsule mouth l daily Ferrous 2022-0 Yes [id number] 325mg Take 1 Ryenold sey Sulfate 1-13 tablet Seybold (Iron) 325 00:00: (325 mg - (65 Fe) MG 00 total) by Exte rna oral Tablet mouth l daily (with breakfast) Docusate 2022-0 Yes [id number] 100mg Take 1 Ke lsey Sodium 1-13 capsule Seybold (Colace) 00:00: (100 mg - 100 MG oral 00 total) by Ext jonathan Capsule mouth l daily Ferrous 2022-0 Yes [id number] 325mg Take 1 Reynold sey Sulfate 1-13 tablet Seybold (Iron) 325 00:00: (325 mg - (65 Fe) MG 00 total) by Exte rna oral Tablet mouth l daily (with breakfast) Docusate 2022-0 Yes [id number] 100mg Take 1 Ke lsey Sodium 1-13 capsule Seybold (Colace) 00:00: (100 mg - 100 MG oral 00 total) by Ext jonathan Capsule mouth l daily Ferrous 2022-0 Yes [id number] 325mg Take 1 Reynold sey Sulfate 1-13 tablet Seybold (Iron) 325 00:00: (325 mg - (65 Fe) MG 00 total) by Exte rna oral Tablet mouth l daily (with breakfast) Docusate 0 Yes [id number] 100mg Take 1 Ke lsey Sodium 1-13 capsule Seybold (Colace) 00:00: (100 mg - 100 MG oral 00 total) by Ext jonathan Capsule mouth l daily Ferrous 0 Yes [id number] 325mg Take 1 Reynold sey Sulfate 1-13 tablet Seybold (Iron) 325 00:00: (325 mg - (65 Fe) MG 00 total) by Exte rna oral Tablet mouth l daily (with breakfast) Docusate 0 Yes [id number] 100mg Take 1 Ke lsey Sodium 1-13 capsule Sey[facility] (Colace) 00:00: (100 mg - 100 MG oral 00 total) by Ext jonathan Capsule mouth l daily Ferrous 0 Yes [id number] 325mg Take 1 Reynold sey Sulfate 1-13 tablet [facility] (Iron) 325 00:00: (325 mg - (65 Fe) MG 00 total) by Exte rna oral Tablet mouth l daily (with breakfast) Docusate 0 Yes [id number] 100mg Take 1 Ke l[facility] Sodium 1-13 capsule Seybold (Colace) 00:00: (100 mg - 100 MG oral 00 total) by Ext jonathan Capsule mouth l daily Ferrous 0 Yes [id number] 325mg Take 1 [facility]old sey Sulfate 1-13 tablet [facility] (Iron) 325 00:00: (325 mg - (65 Fe) MG 00 total) by Exte rna oral Tablet mouth l daily (with breakfast) Docusate 0 Yes [id number] 100mg Take 1 Ke [facility] Sodium 1-13 capsule Seybold (Colace) 00:00: (100 mg - 100 MG oral 00 total) by Ext jonathan Capsule mouth l daily Docusate 0 Yes [id number] 100mg Take 1 [facility] Sodium 1-13 capsule Sey[facility] (Colace) 00:00: (100 mg - 100 MG oral 00 total) by Ext jonathan Capsule mouth l daily Docusate 0 Yes [id number] 100mg Take 1 [facility] Sodium 1-13 capsule Seybold (Colace) 00:00: (100 mg - 100 MG oral 00 total) by Ext jonathan Capsule mouth l daily Ferrous 0 Yes [id number] 325mg Take 1 Reynold sey Sulfate 1-13 tablet Sey[facility] (Iron) 325 00:00: (325 mg - (65 Fe) MG 00 total) by Exte rna oral Tablet mouth l daily (with breakfast) Docusate 0 Yes [id number] 100mg Take 1 Ke [facility] Sodium 1-13 capsule Seybold (Colace) 00:00: (100 mg - 100 MG oral 00 total) by Ext jonathan Capsule mouth l daily Nitrofurant 0 2022- No [id number] 100mg Take 1 Jelena oin Monohyd 1-13 [...] times - 55 daily Externa l Cyanocobala 0 Yes Take by Reynold sey min 1-10 [...] 1-11 00:00: 00 LYRICA 150 2019-08 Yes [id number] Take 1 [facility] mg capsule 2-21 capsule by ity of 00:00: mouth [place] 00 twice a Medical day for Branch neuropathi c pain as directed by physician. LYRICA 150 2019-08 Yes [id number] Take 1 [facility] mg capsule 2-21 capsule by ity of 00:00: mouth [place] 00 twice a Medical day for Branch neuropathi c pain as directed by physician. LYRICA 150 2019-08 Yes [id number] Take 1 [facility] mg capsule 2-21 capsule by ity of 00:00: mouth [place] 00 twice a Medical day for Branch neuropathi c pain as directed by physician. LYRICA 150 2019-08 Yes [id number] Take 1 [facility] mg capsule 2-21 capsule by ity of 00:00: mouth [place] 00 twice a Medical day for Branch neuropathi c pain as directed by physician. LYRICA 150 2019-08 Yes [id number] Take 1 [facility] mg capsule 2-21 capsule by ity of 00:00: mouth [place] 00 twice a Medical day for Branch neuropathi c pain as directed by physician. LYRICA 150 2019-08 Yes [id number] Take 1 [facility] mg capsule 2-21 capsule by ity of 00:00: mouth [place] 00 twice a Medical day for Branch neuropathi c pain as directed by physician. LYRICA 150 2019-08 Yes [id number] Take 1 [facility] mg capsule 2-21 capsule by ity of 00:00: mouth [place] 00 twice a Medical day for Branch neuropathi c pain as directed by physician. LYRICA 150 2019-08 Yes [id number] Take 1 [facility] mg capsule 2-21 capsule by ity of 00:00: mouth [place] 00 twice a Medical day for Branch neuropathi c pain as directed by physician. DULOXETINE 2019- No 60mg Take 60 mg [facility] HCL 05-1717 by mouth 3 ity of (CYMBALTA 16:16: [place] ([place] 58 :00 times Medical daily. Branch DULOXETINE 2019- No 60mg Take 60 mg [facility] HCL [...] times Medical daily. Branch ofloxacin 2020-0 Yes [id number] 5[drp] Place 5 [facility] 0.3 % otic 9-17 [id number] Drops in ity of drops 00:00: both ears [place] 00 3 (three) Medical times Branch daily. ofloxacin 2020-0 Yes [id number] 5[drp] Place 5 [facility] 0.3 % otic 9-17 [id number] Drops in ity of drops 00:00: both ears [place] 00 3 (three) Medical times Branch daily. ofloxacin 2020-0 Yes [id number] 5[drp] Place 5 [facility] 0.3 % otic 9-17 [id number] Drops in ity of drops 00:00: both ears [place] 00 3 (three) Medical times Branch daily. ofloxacin 2020-0 Yes [id number] 5[drp] Place 5 [facility] 0.3 % otic 9-17 [id number] Drops in ity of drops 00:00: both ears [place] 00 3 (three) Medical times Branch daily. ofloxacin 2020-0 Yes [id number] 5[drp] Place 5 [facility] 0.3 % otic 9-17 [id number] Drops in ity of drops 00:00: both ears [place] 00 3 (three) Medical times Branch daily. ofloxacin 2020-0 Yes [id number] 5[drp] Place 5 [facility] 0.3 % otic 9-17 [id number] Drops in ity of drops 00:00: both ears [place] 00 3 (three) Medical times Branch daily. ofloxacin 2020-0 Yes [id number] 5[drp] Place 5 [facility] 0.3 % otic 9-17 [id number] Drops in ity of drops 00:00: both ears [place] 00 3 (three) Medical times Branch daily. ofloxacin 2020-0 Yes [id number] 5[drp] Place 5 [facility] 0.3 % otic 9-17 [id number] Drops in ity of drops 00:00: both ears [place] 00 3 (three) Medical times Branch daily. ofloxacin 2020-0 Yes [id number] 5[drp] Place 5 [facility] 0.3 % otic 9-17 [id number] Drops in ity of drops 00:00: both ears [place] 00 3 (three) Medical times Branch daily. ofloxacin 2020-0 Yes [id number] 5[drp] Place 5 [facility] 0.3 % otic 9-17 [id number] Drops in ity of drops 00:00: both ears [place] 00 3 (three) Medical times Branch daily. ofloxacin 2020-0 Yes [id number] 5[drp] Place 5 [facility] 0.3 % otic 9-17 [id number] Drops in ity of drops 00:00: both ears [place] 00 3 (three) Medical times Branch daily. ofloxacin 2020-0 Yes [id number] 5[drp] Place 5 [facility] 0.3 % otic 9-17 [id number] Drops in ity of drops 00:00: both ears [place] 00 3 (three) Medical times Branch daily. ofloxacin 2020-0 Yes [id number] 5[drp] Place 5 [facility] 0.3 % otic 9-17 [id number] Drops in ity of drops 00:00: both ears [place] 00 3 (three) Medical times Branch daily. ofloxacin 2020-0 Yes [id number] 5[drp] Place 5 [facility] 0.3 % otic 9-17 [id number] Drops in ity of drops 00:00: both ears [place] 00 3 (three) Medical times Branch daily. ofloxacin 2020-0 Yes [id number] 5[drp] Place 5 [facility] 0.3 % otic 05-17 [id number] Drops in ity of drops 00:00: both ears [place] 00 3 (three) Medical times Branch daily. ofloxacin 2020-0 Yes [id number] 5[drp] Place 5 [facility] 0.3 % otic 05-17 [id number] Drops in ity of drops 00:00: both [...] 7 days. Indication s: acute pain metoprolol Yes [id number] 50mg Take 1 Un nneka succinate 7-09 tablet by ity o f XL 50 mg 24 00:00: mouth [place] hr tablet 00 daily. Medical Branch hydroCHLORO Yes [id number] 25mg Take 1 [facility] thiazide 25 7-09 tablet by ity of mg tablet 00:00: mouth [place] 00 daily. Medical Branch baclofen 10 2019- Yes [id number] 10mg Take 1 [facility] mg tablet 03-08 [id number] tablet by ity of 00:00: mouth 3 [place] 00 (three) Medical times Branch daily as needed for Pain (scale 4-6). metoprolol 2020-0 Yes [id number] 50mg Take 1 Un nneka succinate 7-09 tablet by ity o f XL 50 mg 24 00:00: mouth [place] hr tablet 00 daily. Medical Branch hydroCHLORO 2020-0 Yes [id number] 25mg Take 1 [facility] thiazide 25 7-09 tablet by ity of mg tablet 00:00: mouth [place] 00 daily. Medical Branch baclofen 10 2020-0 Yes [id number] 10mg Take 1 [facility] mg tablet 03-08 [id number] tablet by ity of 00:00: mouth 3 [place] 00 (three) Medical times Branch daily as needed for Pain (scale 4-6). metoprolol 2020-0 Yes [id number] 50mg Take 1 Un nneka succinate 7-09 tablet by ity o f XL 50 mg 24 00:00: mouth [place] hr tablet 00 daily. Medical Branch hydroCHLORO 2020-0 Yes [id number] 25mg Take 1 [facility] thiazide 25 7-09 tablet by ity of mg tablet 00:00: mouth [place] 00 daily. Medical Branch baclofen 10 2020-0 Yes [id number] 10mg Take 1 [facility] mg tablet 03-08 [id number] tablet by ity of 00:00: mouth 3 [place] 00 (three) Medical times Branch daily as needed for Pain (scale 4-6). metoprolol 2020-0 Yes [id number] 50mg Take 1 Un nneka succinate 7-09 tablet by ity o f XL 50 mg 24 00:00: mouth [place] hr tablet 00 daily. Medical Branch hydroCHLORO 2020-0 Yes [id number] 25mg Take 1 [facility] thiazide 25 7-09 tablet by ity of mg tablet 00:00: mouth [place] 00 daily. Medical Branch baclofen 10 2020-0 Yes [id number] 10mg Take 1 [facility] mg tablet 03-08 [id number] tablet by ity of 00:00: mouth 3 [place] 00 (three) Medical times Branch daily as needed for Pain (scale 4-6). metoprolol 2020-0 Yes [id number] 50mg Take 1 Un nneka succinate 7-09 tablet by ity o f XL 50 mg 24 00:00: mouth [place] hr tablet 00 daily. Medical Branch hydroCHLORO 2020-0 Yes [id number] 25mg Take 1 [facility] thiazide 25 7-09 tablet by ity of mg tablet 00:00: mouth [place] 00 daily. Medical Branch baclofen 10 2020-0 Yes [id number] 10mg Take 1 [facility] mg tablet 7- [id number] tablet by ity of 00:00: mouth 3 [place] 00 (three) Medical times Branch daily as needed for Pain (scale 4-6). metoprolol 2020-0 Yes [id number] 50mg Take 1 Un nneka succinate 7-09 tablet by ity o f XL 50 mg 24 00:00: mouth [place] hr tablet 00 daily. Medical Branch hydroCHLORO 2020-0 Yes [id number] 25mg Take 1 [facility] thiazide 25 7-09 tablet by ity of mg tablet 00:00: mouth [place] 00 daily. Medical Branch baclofen 10 2019-0 Yes [id number] 10mg Take 1 [facility] mg tablet 7 [id number] tablet by ity of 00:00: mouth 3 [place] 00 (three) Medical times Branch daily as needed for Pain (scale 4-6). metoprolol 2020-0 Yes [id number] 50mg Take 1 Un nneka succinate 7-09 tablet by ity o f XL 50 mg 24 00:00: mouth [place] hr tablet 00 daily. Medical Branch hydroCHLORO 2020-0 Yes [id number] 25mg Take 1 [facility] thiazide 25 7-09 tablet by ity of mg tablet 00:00: mouth [place] 00 daily. Medical Branch baclofen 10 2019-0 Yes [id number] 10mg Take 1 [facility] mg tablet 03-08 [id number] tablet by ity of 00:00: mouth 3 [place] 00 (three) Medical times Branch daily as needed for Pain (scale 4-6). metoprolol 2020-0 Yes [id number] 50mg Take 1 Un nneka succinate 7-09 tablet by ity o f XL 50 mg 24 00:00: mouth [place] hr tablet 00 daily. Medical Branch hydroCHLORO 2020-0 Yes [id number] 25mg Take 1 [facility] thiazide 25 7-09 tablet by ity of mg tablet 00:00: mouth [place] 00 daily. Medical Branch baclofen 10 2020-0 Yes [id number] 10mg Take 1 [facility] mg tablet 7- [id number] tablet by ity of 00:00: mouth 3 [place] 00 (three) Medical times Branch daily as needed for Pain (scale 4-6). metoprolol 2020-0 Yes [id number] 50mg Take 1 Un nneka succinate 7-09 tablet by ity o f XL 50 mg 24 00:00: mouth [place] hr tablet 00 daily. Medical Branch hydroCHLORO 2020-0 Yes [id number] 25mg Take 1 [facility] thiazide 25 7-09 tablet by ity of mg tablet 00:00: mouth [place] 00 daily. Medical Branch baclofen 10 2020-0 Yes [id number] 10mg Take 1 [facility] mg tablet 7- [id number] tablet by ity of 00:00: mouth 3 [place] 00 (three) Medical times Branch daily as needed for Pain (scale 4-6). metoprolol 2020-0 Yes [id number] 50mg Take 1 Un nneka succinate 7-09 tablet by ity o f XL 50 mg 24 00:00: mouth [place] hr tablet 00 daily. Medical Branch hydroCHLORO 2020-0 Yes [id number] 25mg Take 1 [facility] thiazide 25 7-09 tablet by ity of mg tablet 00:00: mouth [place] 00 daily. Medical Branch baclofen 10 2019-0 Yes [id number] 10mg Take 1 [facility] mg tablet 7 [id number] tablet by ity of 00:00: mouth 3 [place] 00 (three) Medical times Branch daily as needed for Pain (scale 4-6). metoprolol 2020-0 Yes [id number] 50mg Take 1 Un nneka succinate 7-09 tablet by ity o f XL 50 mg 24 00:00: mouth [place] hr tablet 00 daily. Medical Branch hydroCHLORO 2020-0 Yes [id number] 25mg Take 1 [facility] thiazide 25 7-09 tablet by ity of mg tablet 00:00: mouth [place] 00 daily. Medical Branch baclofen 10 2020-0 Yes [id number] 10mg Take 1 [facility] mg tablet 7- [id number] tablet by ity of 00:00: mouth 3 [place] 00 (three) Medical times Branch daily as needed for Pain (scale 4-6). metoprolol 2020-0 Yes [id number] 50mg Take 1 Un nneka succinate 7-09 tablet by ity o f XL 50 mg 24 00:00: mouth [place] hr tablet 00 daily. Medical Branch hydroCHLORO 2020-0 Yes [id number] 25mg Take 1 [facility] thiazide 25 7-09 tablet by ity of mg tablet 00:00: mouth [place] 00 daily. Medical Branch baclofen 10 2020-0 Yes [id number] 10mg Take 1 [facility] mg tablet 03-08 [id number] tablet by ity of 00:00: mouth 3 [place] 00 (three) Medical times Branch daily as needed for Pain (scale 4-6). metoprolol 2020-0 Yes [id number] 50mg Take 1 Un nneka succinate 7-09 tablet by ity o f XL 50 mg 24 00:00: mouth [place] hr tablet 00 daily. Medical Branch hydroCHLORO 2020-0 Yes [id number] 25mg Take 1 [facility] thiazide 25 7-09 tablet by ity of mg tablet 00:00: mouth [place] 00 daily. Medical Branch baclofen 10 2020-0 Yes [id number] 10mg Take 1 [facility] mg tablet 03-08 [id number] tablet by ity of 00:00: mouth 3 [place] 00 (three) Medical times Branch daily as needed for Pain (scale 4-6). metoprolol 2020-0 Yes [id number] 50mg Take 1 Un nneka succinate 7-09 tablet by ity o f XL 50 mg 24 00:00: mouth [place] hr tablet 00 daily. Medical Branch hydroCHLORO 2020-0 Yes [id number] 25mg Take 1 [facility] thiazide 25 7-09 tablet by ity of mg tablet 00:00: mouth [place] 00 daily. Medical Branch baclofen 10 2019-0 Yes [id number] 10mg Take 1 [facility] mg tablet 03-08 [id number] tablet by ity of 00:00: mouth 3 [place] 00 (three) Medical times Branch daily as needed for Pain (scale 4-6). metoprolol 2020-0 Yes [id number] 50mg Take 1 Un nneka succinate 7-09 tablet by ity o f XL 50 mg 24 00:00: mouth [place] hr tablet 00 daily. Medical Branch hydroCHLORO 2020-0 Yes [id number] 25mg Take 1 [facility] thiazide 25 7-09 tablet by ity of mg tablet 00:00: mouth [place] 00 daily. Medical Branch baclofen 10 2020-0 Yes [id number] 10mg Take 1 [facility] mg tablet 03-08 [id number] tablet by ity of 00:00: mouth 3 [place] 00 (three) Medical times Branch daily as needed for Pain (scale 4-6). metoprolol 2020-0 Yes [id number] 50mg Take 1 Un nneka succinate 7-09 tablet by ity o f XL 50 mg 24 00:00: mouth [place] hr tablet 00 daily. Medical Branch hydroCHLORO 2020-0 Yes [id number] 25mg Take 1 [facility] thiazide 25 7-09 tablet by ity of mg tablet 00:00: mouth [place] 00 daily. Medical Branch baclofen 10 2020-0 Yes [id number] 10mg Take 1 [facility] mg tablet 7- [id number] tablet by ity of 00:00: mouth 3 [place] 00 (three) Medical times Branch daily as needed for Pain (scale 4-6). metoprolol 2020-0 Yes [id number] 50mg Take 1 Un nneka succinate 7-09 tablet by ity o f XL 50 mg 24 00:00: mouth [place] hr tablet 00 daily. Medical Branch hydroCHLORO 2020-0 Yes [id number] 25mg Take 1 [facility] thiazide 25 7-09 tablet by ity of mg tablet 00:00: mouth [place] 00 daily. Medical Branch baclofen 10 2020-0 Yes [id number] 10mg Take 1 [facility] mg tablet 7 [id number] tablet by ity of 00:00: mouth 3 [place] 00 (three) Medical times Branch daily as needed for Pain (scale 4-6). metoprolol 2020-0 Yes [id number] 50mg Take 1 Un nneka succinate 7-09 tablet by ity o f XL 50 mg 24 00:00: mouth [place] hr tablet 00 daily. Medical Branch hydroCHLORO 2020-0 Yes [id number] 25mg Take 1 [facility] thiazide 25 7-09 tablet by ity of mg tablet 00:00: mouth [place] 00 daily. Medical Branch baclofen 10 2020-0 Yes [id number] 10mg Take 1 [facility] mg tablet 03-08 [id number] tablet by ity of 00:00: mouth 3 [place] 00 (three) Medical times Branch daily as needed for Pain (scale 4-6). metoprolol 2020-0 Yes [id number] 50mg Take 1 Un nneka succinate 7-09 tablet by ity o f XL 50 mg 24 00:00: mouth [place] hr tablet 00 daily. Medical Branch hydroCHLORO 2020-0 Yes [id number] 25mg Take 1 [facility] thiazide 25 7-09 tablet by ity of mg tablet 00:00: mouth [place] 00 daily. Medical Branch baclofen 10 2020-0 Yes [id number] 10mg Take 1 [facility] mg tablet 03-08 [id number] tablet by ity of 00:00: mouth 3 [place] 00 (three) Medical times Branch daily as needed for Pain (scale 4-6). metoprolol 2020-0 Yes [id number] 50mg Take 1 Un nneka succinate 7-09 tablet by ity o f XL 50 mg 24 00:00: mouth [place] hr tablet 00 daily. Medical Branch hydroCHLORO 2020-0 Yes [id number] 25mg Take 1 [facility] thiazide 25 7-09 tablet by ity of mg tablet 00:00: mouth [place] 00 daily. Medical Branch baclofen 10 2020-0 Yes [id number] 10mg Take 1 [facility] mg tablet 7- [id number] tablet by ity of 00:00: mouth 3 [place] 00 (three) Medical times Branch daily as needed for Pain (scale 4-6). metoprolol 2020-0 Yes [id number] 50mg Take 1 Un nneka succinate 7-09 tablet by ity o f XL 50 mg 24 00:00: mouth [place] hr tablet 00 daily. Medical Branch hydroCHLORO 2020-0 Yes [id number] 25mg Take 1 [facility] thiazide 25 7-09 tablet by ity of mg tablet 00:00: mouth [place] 00 daily. Medical Branch baclofen 10 2019-0 Yes [id number] 10mg Take 1 [facility] mg tablet 7- [id number] tablet by ity of 00:00: mouth 3 [place] 00 (three) Medical times Branch daily as needed for Pain (scale 4-6). metoprolol 2020-0 Yes [id number] 50mg Take 1 Un nneka succinate 7-09 tablet by ity o f XL 50 mg 24 00:00: mouth [place] hr tablet 00 daily. Medical Branch hydroCHLORO 2020-0 Yes [id number] 25mg Take 1 [facility] thiazide 25 7-09 tablet by ity of mg tablet 00:00: mouth [place] 00 daily. Medical Branch baclofen 10 2020-0 Yes [id number] 10mg Take 1 [facility] mg tablet 7- [id number] tablet by ity of 00:00: mouth 3 [place] 00 (three) Medical times Branch daily as needed for Pain (scale 4-6). metoprolol 2020-0 Yes [id number] 50mg Take 1 Un nneka succinate 7-09 tablet by ity o f XL 50 mg 24 00:00: mouth [place] hr tablet 00 daily. Medical Branch hydroCHLORO 2020-0 Yes [id number] 25mg Take 1 [facility] thiazide 25 7-09 tablet by ity of mg tablet 00:00: mouth [place] 00 daily. Medical Branch baclofen 10 2020-0 Yes [id number] 10mg Take 1 [facility] mg tablet 03-08 [id number] tablet by ity of 00:00: mouth 3 [place] 00 (three) Medical times Branch daily as needed for Pain (scale 4-6). metoprolol 2020-0 Yes [id number] 50mg Take 1 Un nneka succinate 7-09 tablet by ity o f XL 50 mg 24 00:00: mouth [place] hr tablet 00 daily. Medical Branch hydroCHLORO 2020-0 Yes [id number] 25mg Take 1 [facility] thiazide 25 7-09 tablet by ity of mg tablet 00:00: mouth [place] 00 daily. Medical Branch baclofen 10 2020-0 Yes [id number] 10mg Take 1 [facility] mg tablet 7 [id number] tablet by ity of 00:00: mouth 3 [place] 00 (three) Medical times Branch daily as needed for Pain (scale 4-6). metoprolol 2020-0 Yes [id number] 50mg Take 1 Un nneka succinate 7-09 tablet by ity o f XL 50 mg 24 00:00: mouth [place] hr tablet 00 daily. Medical Branch hydroCHLORO 2020-0 Yes [id number] 25mg Take 1 [facility] thiazide 25 7-09 tablet by ity of mg tablet 00:00: mouth [place] 00 daily. Medical Branch baclofen 10 2020-0 Yes [id number] 10mg Take 1 [facility] mg tablet 03-08 [id number] tablet by ity of 00:00: mouth 3 [place] 00 (three) Medical times Branch daily as needed for Pain (scale 4-6). metoprolol 2020-0 Yes [id number] 50mg Take 1 Un nneka succinate 7-09 tablet by ity o f XL 50 mg 24 00:00: mouth [place] hr tablet 00 daily. Medical Branch hydroCHLORO 2020-0 Yes [id number] 25mg Take 1 [facility] thiazide 25 7-09 tablet by ity of mg tablet 00:00: mouth [place] 00 daily. Medical Branch baclofen 10 2020-0 Yes [id number] 10mg Take 1 [facility] mg tablet - [id number] tablet by ity of 00:00: mouth 3 [place] 00 (three) Medical times Branch daily as needed for Pain (scale 4-6). DULOXETINE 2020-0 Yes 60mg Take 60 mg U nivers HCL 2-25 by mouth 3 ity of (CYMBALTA 14:58: (three) [place] ORAL) 32 times Medical daily. Branch VITAMIN B 2020-0 Yes Take by Unive rs COMPLEX 2-25 mouth. ity of ORAL 14:58: [place] [address] Medical Branch traZODONE 2020-0 Yes 100mg Take 100 [facility] vers 100 mg 2-25 mg by ity of tablet 14:58: mouth at [place] [address] bedtime. Medical Branch benztropine 2020-0 Yes 1mg Take 1 mg U nivers 1 mg tablet 2-25 by mouth ity of 14:58: daily. [place] [address] Medical Branch DULOXETINE 2020-0 Yes 60mg Take 60 mg U nivers HCL 2-25 by mouth 3 ity of (CYMBALTA 14:58: (three) [place] ORAL) 32 times Medical daily. Branch VITAMIN B 2020-0 Yes Take by Unive rs COMPLEX 2-25 mouth. ity of ORAL 14:58: [place] [address] Medical Branch traZODONE 2020-0 Yes 100mg Take 100 [facility] vers 100 mg 2-25 mg by ity of tablet 14:58: mouth at [place] [address] bedtime. Medical Branch benztropine 2020-0 Yes 1mg Take 1 mg U nivers 1 mg tablet 2-25 by mouth ity of 14:58: daily. [place] [address] Medical Branch DULOXETINE 2020-0 Yes 60mg Take 60 mg U nivers HCL 2-25 by mouth 3 ity of (CYMBALTA 14:58: (three) [place] ORAL) 32 times Medical daily. Branch VITAMIN B 2020-0 Yes Take by Unive rs COMPLEX 2-25 mouth. ity of ORAL 14:58: [place] [address] Medical Branch traZODONE 2020-0 Yes 100mg Take 100 [facility] vers 100 mg 2-25 mg by ity of tablet 14:58: mouth at [place] [address] bedtime. Medical Branch benztropine 2020-0 Yes 1mg Take 1 mg U nivers 1 mg tablet 2-25 by mouth ity of 14:58: daily. [place] [address] Medical Branch DULOXETINE 2020-0 Yes 60mg Take 60 mg U nivers HCL 2-25 by mouth 3 ity of (CYMBALTA 14:58: (three) [place] ORAL) 32 times Medical daily. Branch VITAMIN B 2020-0 Yes Take by Unive rs COMPLEX 2-25 mouth. ity of ORAL 14:58: [place] [address] Medical Branch traZODONE 2020-0 Yes 100mg Take 100 [facility] vers 100 mg 2-25 mg by ity of tablet 14:58: mouth at [place] [address] bedtime. Medical Branch benztropine 2020-0 Yes 1mg Take 1 mg U nivers 1 mg tablet 2-25 by mouth ity of 14:58: daily. [place] [address] Medical Branch DULOXETINE 2020-0 Yes 60mg Take 60 mg U nivers HCL 2-25 by mouth 3 ity of (CYMBALTA 14:58: (three) [place] ORAL) 32 times Medical daily. Branch VITAMIN B 2020-0 Yes Take by Unive rs COMPLEX 2-25 mouth. ity of ORAL 14:58: [place] [address] Medical Branch traZODONE 2020-0 Yes 100mg Take 100 [facility] vers 100 mg 2-25 mg by ity of tablet 14:58: mouth at [place] [address] bedtime. Medical Branch benztropine 2020-0 Yes 1mg Take 1 mg U nivers 1 mg tablet 2-25 by mouth ity of 14:58: daily. [place] [address] Medical Branch DULOXETINE 2020-0 Yes 60mg Take 60 mg U nivers HCL 2-25 by mouth 3 ity of (CYMBALTA 14:58: (three) [place] ORAL) 32 times Medical daily. Branch VITAMIN B 2020-0 Yes Take by Unive rs COMPLEX 2-25 mouth. ity of ORAL 14:58: [place] [address] Medical Branch traZODONE 2020-0 Yes 100mg Take 100 [facility] vers 100 mg 2-25 mg by ity of tablet 14:58: mouth at [place] [address] bedtime. Medical Branch benztropine 2020-0 Yes 1mg Take 1 mg U nivers 1 mg tablet 2-25 by mouth ity of 14:58: daily. [place] [address] Medical Branch DULOXETINE 2020-0 Yes 60mg Take 60 mg U nivers HCL 2-25 by mouth 3 ity of (CYMBALTA 14:58: (three) [place] ORAL) 32 times Medical daily. Branch VITAMIN B 2020-0 Yes Take by Unive rs COMPLEX 2-25 mouth. ity of ORAL 14:58: [place] [address] Medical Branch traZODONE 2020-0 Yes 100mg Take 100 [facility] vers 100 mg 2-25 mg by ity of tablet 14:58: mouth at [place] [address] bedtime. Medical Branch benztropine 2020-0 Yes 1mg Take 1 mg U nivers 1 mg tablet 2-25 by mouth ity of 14:58: daily. [place] [address] Medical Branch DULOXETINE 2020-0 Yes 60mg Take 60 mg U nivers HCL 2-25 by mouth 3 ity of (CYMBALTA 14:58: (three) [place] ORAL) 32 times Medical daily. Branch VITAMIN B 2020-0 Yes Take by Unive rs COMPLEX 2-25 mouth. ity of ORAL 14:58: [place] [address] Medical Branch traZODONE 2020-0 Yes 100mg Take 100 [facility] vers 100 mg 2-25 mg by ity of tablet 14:58: mouth at [place] [address] bedtime. Medical Branch benztropine 2020-0 Yes 1mg Take 1 mg U nivers 1 mg tablet 2-25 by mouth ity of 14:58: daily. [place] [address] Medical Branch DULOXETINE 2020-0 Yes 60mg Take 60 mg U nivers HCL 2-25 by mouth 3 ity of (CYMBALTA 14:58: (three) [place] ORAL) 32 times Medical daily. Branch VITAMIN B 2020-0 Yes Take by Unive rs COMPLEX 2-25 mouth. ity of ORAL 14:58: [place] [address] Medical Branch traZODONE 2020-0 Yes 100mg Take 100 [facility] vers 100 mg 2-25 mg by ity of tablet 14:58: mouth at [place] [address] bedtime. Medical Branch benztropine 2020-0 Yes 1mg Take 1 mg U nivers 1 mg tablet 2-25 by mouth ity of 14:58: daily. [place] [address] Medical Branch DULOXETINE 2020-0 Yes 60mg Take 60 mg U nivers HCL 2-25 by mouth 3 ity of (CYMBALTA 14:58: (three) [place] ORAL) 32 times Medical daily. Branch VITAMIN B 2020-0 Yes Take by Unive rs COMPLEX 2-25 mouth. ity of ORAL 14:58: [place] [address] Medical Branch traZODONE 2020-0 Yes 100mg Take 100 [facility] vers 100 mg 2-25 mg by ity of tablet 14:58: mouth at [place] [address] bedtime. Medical Branch benztropine 2020-0 Yes 1mg Take 1 mg U nivers 1 mg tablet 2-25 by mouth ity of 14:58: daily. [place] [address] Medical Branch DULOXETINE 2020-0 Yes 60mg Take 60 mg U nivers HCL 2-25 by mouth 3 ity of (CYMBALTA 14:58: (three) [place] ORAL) 32 times Medical daily. Branch VITAMIN B 2020-0 Yes Take by Unive rs COMPLEX 2-25 mouth. ity of ORAL 14:58: [place] [address] Medical Branch traZODONE 2020-0 Yes 100mg Take 100 [facility] vers 100 mg 2-25 mg by ity of tablet 14:58: mouth at [place] [address] bedtime. Medical Branch benztropine 2020-0 Yes 1mg Take 1 mg U nivers 1 mg tablet 2-25 by mouth ity of 14:58: daily. [place] [address] Medical Branch DULOXETINE 2020-0 Yes 60mg Take 60 mg U nivers HCL 2-25 by mouth 3 ity of (CYMBALTA 14:58: (three) [place] ORAL) 32 times Medical daily. Branch VITAMIN B 2020-0 Yes Take by [facility] ers COMPLEX 2-25 mouth. ity of ORAL 14:58: [place] [address] Medical Branch traZODONE 2020-0 Yes 100mg Take 100 Uni vers 100 mg 2-25 mg by ity of tablet 14:58: mouth at [place] [address] bedtime. Medical Branch benztropine 2020-0 Yes 1mg Take 1 mg U nivers 1 mg tablet 2-25 by mouth ity of 14:58: daily. [place] [address] Medical Branch DULOXETINE 2020-0 Yes 60mg Take 60 mg U nivers HCL 2-25 by mouth 3 ity of (CYMBALTA 14:58: (three) [place] ORAL) 32 times Medical daily. Branch VITAMIN B 2020-0 Yes Take by Unive rs COMPLEX 2-25 mouth. ity of ORAL 14:58: [place] [address] Medical Branch traZODONE 2020-0 Yes 100mg Take 100 [facility] vers 100 mg 2-25 mg by ity of tablet 14:58: mouth at [place] [address] bedtime. Medical Branch benztropine 2020-0 Yes 1mg Take 1 mg U nivers 1 mg tablet 2-25 by mouth ity of 14:58: daily. [place] [address] Medical Branch DULOXETINE 2020-0 Yes 60mg Take 60 mg U nivers HCL 2-25 by mouth 3 ity of (CYMBALTA 14:58: (three) [place] ORAL) 32 times Medical daily. Branch VITAMIN B 2020-0 Yes Take by Unive rs COMPLEX 2-25 mouth. ity of ORAL 14:58: [place] [address] [facility] Branch traZODONE 2020-0 Yes 100mg Take 100 [facility] vers 100 mg 2-25 mg by ity of tablet 14:58: mouth at [place] [address] bedtime. Medical Branch benztropine 2020-0 Yes 1mg Take 1 mg [facility] nivers 1 mg tablet 2-25 by mouth ity of 14:58: daily. [place] [address] [facility] Branch DULOXETINE 2020-0 Yes 60mg Take 60 mg U nivers HCL 2-25 by mouth 3 ity of (CYMBALTA 14:58: (three) [place] ORAL) 32 times Medical daily. Branch VITAMIN B 2020-0 Yes Take by Unive rs COMPLEX 2-25 mouth. ity of ORAL 14:58: [place] [address] [facility] Branch traZODONE 2020-0 Yes 100mg Take 100 [facility] vers 100 mg 2-25 mg by ity of tablet 14:58: mouth at [place] [address] bedtime. Medical Branch benztropine 2020-0 Yes 1mg Take 1 mg [facility] nivers 1 mg tablet 2-25 by mouth ity of 14:58: daily. [place] [address] [facility] Branch DULOXETINE 2020-0 Yes 60mg Take 60 mg U nivers HCL 2-25 by mouth 3 ity of (CYMBALTA 14:58: (three) [place] ORAL) 32 times Medical daily. Branch VITAMIN B 2020-0 Yes Take by Un[facility] rs COMPLEX 2-25 mouth. ity of ORAL 14:58: [place] [address] [facility] Branch traZODONE 2020-0 Yes 100mg Take 100 [facility] vers 100 mg 2-25 mg by ity of tablet 14:58: mouth at [place] [address] bedtime. Medical Branch benztropine 2020-0 Yes 1mg Take 1 mg [facility] nivers 1 mg tablet 2-25 by mouth ity of 14:58: daily. [place] [address] [facility] Branch DULOXETINE 2020-0 Yes 60mg Take 60 mg [facility] nivers HCL 2-25 by mouth 3 ity of (CYMBALTA 14:58: (three) [place] ORAL) 32 times Medical daily. Branch VITAMIN B 2020-0 Yes Take by Unive rs COMPLEX 2-25 mouth. ity of ORAL 14:58: [place] [address] [facility] Branch traZODONE 2020-0 Yes 100mg Take 100 [facility] vers 100 mg 2-25 mg by ity of tablet 14:58: mouth at [place] [address] bedtime. Medical Branch benztropine 2020-0 Yes 1mg Take 1 mg [facility] nivers 1 mg tablet 2-25 by mouth ity of 14:58: daily. [place] 32 Medical Branch VITAMIN B 2020-0 Yes Take by Unive rs COMPLEX 2-25 mouth. ity of ORAL 14:58: [address] traZODONE 2020-0 Yes 100mg Take 100 [facility] vers 100 mg 2-25 mg by ity of tablet 14:58: mouth at [place] [address] bedtime. [facility] Branch benztropine 2020-0 Yes 1mg Take 1 mg [facility] nivers 1 mg tablet 2-25 by mouth ity of 14:58: daily. [address] VITAMIN B 2020-0 Yes Take by Un[facility] rs COMPLEX 2-25 mouth. ity of ORAL 14:58: [address] traZODONE 2020-0 Yes 100mg Take 100 [facility] vers 100 mg 2-25 mg by ity of tablet 14:58: mouth at [place] [address] bedtime. Medical Branch benztropine 2020-0 Yes 1mg Take 1 mg [facility] nivers 1 mg tablet 2-25 by mouth ity of 14:58: daily. [address] VITAMIN B 2020-0 Yes Take by Un[facility] rs COMPLEX 2-25 mouth. ity of ORAL 14:58: [address] traZODONE 2020-0 Yes 100mg Take 100 [facility] vers 100 mg 2-25 mg by ity of tablet 14:58: mouth at [place] [address] bedtime. Medical Branch benztropine 2020-0 Yes 1mg Take 1 mg [facility] nivers 1 mg tablet 2-25 by mouth ity of 14:58: daily. [address] VITAMIN B 2020-0 Yes Take by Un[facility] rs COMPLEX 2-25 mouth. ity of ORAL 14:58: [address] traZODONE 2020-0 Yes 100mg Take 100 [facility] vers 100 mg 2-25 mg by ity of tablet 14:58: mouth at [place] [address] bedtime. Medical Branch benztropine 2020-0 Yes 1mg Take 1 mg [facility] nivers 1 mg tablet 2-25 by mouth ity of 14:58: daily. [address] VITAMIN B 2020-0 Yes Take by Unive rs COMPLEX 2-25 mouth. ity of ORAL 14:58: [address] traZODONE 2020-0 Yes 100mg Take 100 [facility] vers 100 mg 2-25 mg by ity of tablet 14:58: mouth at [place] [address] bedtime. Medical Branch benztropine 2020-0 Yes 1mg Take 1 mg [facility] nivers 1 mg tablet 2-25 by mouth ity of 14:58: daily. [address] VITAMIN B 2020-0 Yes Take by Unive rs COMPLEX 2-25 mouth. ity of ORAL 14:58: [address] traZODONE 2020-0 Yes 100mg Take 100 [facility] vers 100 mg 2-25 mg by ity of tablet 14:58: mouth at [place] [address] bedtime. Medical Branch benztropine 2020-0 Yes 1mg Take 1 mg [facility] nivers 1 mg tablet 2-25 by mouth ity of 14:58: daily. [address] VITAMIN B 2020-0 Yes Take by Unive rs COMPLEX 2-25 mouth. ity of ORAL 14:58: [address] traZODONE 2020-0 Yes 100mg Take 100 [facility] vers 100 mg 2-25 mg by ity of tablet 14:58: mouth at [place] [address] bedtime. [facility] Branch benztropine 2020-0 Yes 1mg Take 1 mg [facility] nivers 1 mg tablet 2-25 by mouth ity of 14:58: daily. [address] VITAMIN B 2020-0 Yes Take by Unive rs COMPLEX 2-25 mouth. ity of ORAL 14:58: [address] traZODONE 2020-0 Yes 100mg Take 100 [facility] vers 100 mg 2-25 mg by ity of tablet 14:58: mouth at [place] [address] bedtime. [facility] Branch benztropine 2020-0 Yes 1mg Take 1 mg [facility] nivers 1 mg tablet 2-25 by mouth ity of 14:58: daily. [address] VITAMIN B 2020-0 Yes Take by Unive rs COMPLEX 2-25 mouth. ity of ORAL 14:58: [address] traZODONE 2020-0 Yes 100mg Take 100 [facility] vers 100 mg 2-25 mg by ity of tablet 14:58: mouth at [place] [address] bedtime. Medical Branch benztropine 2020-0 Yes 1mg Take 1 mg [facility] nivers 1 mg tablet 2-25 by mouth ity of 14:58: daily. [address] VITAMIN B 2020-0 Yes Take by Unive rs COMPLEX 2-25 mouth. ity of ORAL 14:58: [address] traZODONE 2020-0 Yes 100mg Take 100 [facility] vers 100 mg 2-25 mg by ity of tablet 14:58: mouth at [place] [address] bedtime. [facility] Branch benztropine 2020-0 Yes 1mg Take 1 mg [facility] nivers 1 mg tablet 2-25 by mouth ity of 14:58: daily. [address] VITAMIN B 2020-0 Yes Take by Unive rs COMPLEX 2-25 mouth. ity of ORAL 14:58: [address] traZODONE 2020-0 Yes 100mg Take 100 [facility] vers 100 mg 2-25 mg by ity of tablet 14:58: mouth at [place] [address] bedtime. [facility] Branch benztropine 2020-0 Yes 1mg Take 1 mg [facility] nivers 1 mg tablet 2-25 by mouth ity of 14:58: daily. [address] VITAMIN B 2020-0 Yes Take by Unive rs COMPLEX 2-25 mouth. ity of ORAL 14:58: [address] traZODONE 2020-0 Yes 100mg Take 100 [facility] vers 100 mg 2-25 mg by ity of tablet 14:58: mouth at [place] [address] bedtime. Medical Branch benztropine 2020-0 Yes 1mg Take 1 mg [facility] nivers 1 mg tablet 2-25 by mouth ity of 14:58: daily. [address] VITAMIN B 2020-0 Yes Take by Un[facility] rs COMPLEX 2-25 mouth. ity of ORAL 14:58: [address] traZODONE 2020-0 Yes 100mg Take 100 [facility] vers 100 mg 2-25 mg by ity of tablet 14:58: mouth at [place] [address] bedtime. Medical Branch benztropine 2020-0 Yes 1mg Take 1 mg [facility] nivers 1 mg tablet 2-25 by mouth ity of 14:58: daily. [address] VITAMIN B 2020-0 Yes Take by Unive rs COMPLEX 2-25 mouth. ity of ORAL 14:58: [address] traZODONE 2020-0 Yes 100mg Take 100 [facility] vers 100 mg 2-25 mg by ity of tablet 14:58: mouth at [place] [address] bedtime. Medical Branch benztropine 2020-0 Yes 1mg Take 1 mg [facility] nivers 1 mg tablet 2-25 by mouth ity of 14:58: daily. [address] VITAMIN B 2020-0 Yes Take by Unive rs COMPLEX 2-25 mouth. ity of ORAL 14:58: [address] traZODONE 2020-0 Yes 100mg Take 100 [facility] vers 100 mg 2-25 mg by ity of tablet 14:58: mouth at [place] 32 bedtime. [facility] Branch benztropine 2020-0 Yes 1mg Take 1 mg [facility] nivers 1 mg tablet 2-25 by mouth ity of 14:58: daily. [place] [address] [facility] Branch aripiprazol 2020-0 Yes 5mg Take [...] COMPLEX 2-25 mouth. ity of ORAL 08:58: [place] [address] [facility] Branch traZODONE 2020-0 Yes 100mg Take 100 [facility] vers 100 mg 2-25 mg by ity of tablet 08:58: mouth at [place] [address] bedtime. Medical Branch benztropine 2020-0 Yes 1mg Take 1 mg [facility] nivers 1 mg tablet 2-25 by mouth ity of 08:58: daily. [address] Branch ARIPiprazol 2020-0 Yes 10mg Take 10 [...] 2-24 by mouth ity of 17:16: daily. [address] Branch ARIPiprazol 2020-0 Yes 10mg Take 10 [...] by ity of tablet 17:15: mouth at [place] [address] bedtime. Medical Branch DULOXETINE 2020-0 Yes 60mg [...] by ity of tablet 17:15: mouth at [place] [address] bedtime. Medical Branch DULOXETINE 2020-0 Yes 60mg Take 60 mg U nivers HCL 2-24 by mouth 3 ity of (CYMBALTA 17:15: (three) [place] ORAL) 45 times Medical daily. Branch VITAMIN B 2019-0 Yes Take by Unive rs COMPLEX 2-24 mouth. ity of ORAL 17:15: [place] 45 Medical Branch traZODONE 2019-0 Yes 100mg Take 100 [facility] vers 100 mg 2-24 mg by ity of tablet 17:15: mouth at [place] [address] bedtime. Medical Branch OLANZapine 2019-0 2020- No 20mg Take 20 mg [facility] 20 mg 2-24 10-24 by mouth ity of tablet 17:15: 00:00 at [place] 35 :00 bedtime. Medical Branch OLANZapine 2019-0 2020- No 20mg Take 20 mg [facility] 20 mg 2-24 10-24 by mouth ity of tablet 17:15: 00:00 at [place] 35 :00 bedtime. Medical Branch OLANZapine 2019-0 2020- No 20mg Take 20 mg [facility] 20 mg 2-24 10-24 by mouth ity of tablet 17:15: 00:00 at [place] 35 :00 bedtime. Medical Branch OLANZapine 2019-0 2020- No 10mg Take 10 mg [facility] (ZYPREXA) 2-24 10-24 by mouth 2 ity of 10 mg 17:15: 00:00 (two) [place] tablet 26 :00 times Medical daily. Branch OLANZapine 2019-0 2020- No 10mg Take 10 mg [facility] (ZYPREXA) 2-24 10-24 by mouth 2 ity of 10 mg 17:15: 00:00 (two) [place] tablet 26 :00 times Medical daily. Branch OLANZapine 2019-0 2020- No 10mg Take 10 mg [facility] (ZYPREXA) 2-24 10-24 by mouth 2 ity of 10 mg 17:15: 00:00 (two) [place] tablet 26 :00 times Medical daily. Branch DULoxetine 0 2020- No Take 3 [facility] ers 30 mg 2-24 02-24 capsules ity of capsule 17:15: 00:00 by mouth [place] 09 :00 daily. Medical Branch DULoxetine 0 2020- No Take 3 [facility] ers 30 mg 2-24 02-24 capsules ity of capsule 17:15: 00:00 by mouth [place] 09 :00 daily. Medical Branch DULoxetine 2019-0 2020- No Take 3 [facility] ers 30 mg 2-24 02-24 capsules ity of capsule 17:15: 00:00 by mouth [place] 09 :00 daily. Medical Branch metoprolol 2020-0 Yes [id number] 50mg Take 1 Un nneka succinate 2-24 tablet by ity o f XL 50 mg 24 00:00: mouth [place] hr tablet 00 daily. [facility] Branch metoprolol 2020-0 Yes [id number] 50mg Take 1 Un nneka succinate 2-24 tablet by ity o f XL 50 mg 24 00:00: mouth [place] hr tablet 00 daily. [facility] Branch metoprolol 2020-0 Yes [id number] 50mg Take 1 Un nneka succinate 2-24 tablet by ity o f XL 50 mg 24 00:00: mouth [place] hr tablet 00 daily. [facility] Branch metoprolol 2020-0 Yes [id number] 50mg Take 1 Un nneka succinate 2-24 tablet by ity o f XL 50 mg 24 00:00: mouth [place] hr tablet 00 daily. [facility] Branch metoprolol 2020-0 Yes [id number] 50mg Take 1 Un nneka succinate 2-24 tablet by ity o f XL 50 mg 24 00:00: mouth [place] hr tablet 00 daily. [facility] Branch metoprolol 2020-0 Yes [id number] 50mg Take 1 Un nneka succinate 2-24 tablet by ity o f XL 50 mg 24 00:00: mouth [place] hr tablet 00 daily. [facility] Branch metoprolol 2020-0 Yes [id number] 50mg Take 1 Un nneka succinate 2-24 tablet by ity o f XL 50 mg 24 00:00: mouth [place] hr tablet 00 daily. [facility] Branch metoprolol 2020-0 Yes [id number] 50mg Take 1 Un nneka succinate 2-24 tablet by ity o f XL 50 mg 24 00:00: mouth [place] hr tablet 00 daily. Medical Branch metoprolol 2020-0 Yes [id number] 50mg Take 1 Un nneka succinate 2-24 tablet by ity o f XL 50 mg 24 00:00: mouth [place] hr tablet 00 daily. Medical Branch metoprolol 2020-0 Yes [id number] 50mg Take 1 Un nneka succinate 2-24 tablet by ity o f XL 50 mg 24 00:00: mouth [place] hr tablet 00 daily. [facility] Branch metoprolol 2020-0 2020- No [id number] 50mg Take 1 U nivers succinate 2-24 07-09 tablet by ity of XL 50 mg 24 00:00: 00:00 mouth [place] hr tablet 00 :00 daily. [facility] Branch metoprolol 2020-0 2020- No [id number] 50mg Take 1 U nivers succinate -23 03- tablet by ity of XL 50 mg 24 00:00: 00:00 mouth [place] hr tablet 00 :00 daily. [facility] Branch metoprolol 0 2019- No [id number] 50mg Take 1 U nivers succinate 10-24- tablet by ity of XL 50 mg 24 00:00: 00:00 mouth [place] hr tablet 00 :00 daily. [facility] metoprolol 0 2019- No [id number] 50mg Take 1 U nivers succinate 10-24- tablet by ity of XL 50 mg 24 00:00: 00:00 mouth [place] hr tablet 00 :00 daily. [facility] hydroCHLORO 2020-0 Yes [id number] 25mg Take 1 [facility] thiazide 25 1-30 tablet by ity of mg tablet 00:00: mouth [place] 00 daily. Medical Branch meloxicam 2019-0 Yes [id number] 15mg Take 1 U nivers 15 mg 1-30 tablet by ity of tablet 00:00: mouth [place] 00 daily. Medical Branch metoprolol 2020-0 Yes [id number] 25mg Take 1 Un nneka succinate 1-30 tablet by ity o f XL 25 mg 24 00:00: mouth [place] hr tablet 00 daily. Medical Branch pregabalin 2020-0 Yes [id number] 150mg Take 1 Univers (LYRICA) 1-30 capsule by ity o f 150 mg 00:00: mouth 2 [place] capsule 00 (two) Medical times Branch daily. hydroCHLORO 2020-0 Yes [id number] 25mg Take 1 [facility] thiazide 25 1-30 tablet by ity of mg tablet 00:00: mouth [place] 00 daily. Medical Branch meloxicam 2020-0 Yes [id number] 15mg Take 1 U nivers 15 mg 1-30 tablet by ity of tablet 00:00: mouth [place] 00 daily. Medical Branch metoprolol 2020-0 Yes [id number] 25mg Take 1 Un nneka succinate 1-30 tablet by ity o f XL 25 mg 24 00:00: mouth [place] hr tablet 00 daily. Medical Branch pregabalin 2020-0 Yes [id number] 150mg Take 1 Univers (LYRICA) 1-30 capsule by ity o f 150 mg 00:00: mouth 2 [place] capsule 00 (two) Medical times Branch daily. hydroCHLORO 2020-0 Yes [id number] 25mg Take 1 [facility] thiazide 25 1-30 tablet by ity of mg tablet 00:00: mouth [place] 00 daily. Medical Branch meloxicam 2020-0 Yes [id number] 15mg Take 1 U nivers 15 mg 1-30 tablet by ity of tablet 00:00: mouth [place] 00 daily. Medical Branch pregabalin 2020-0 Yes [id number] 150mg Take 1 Univers (LYRICA) 1-30 capsule by ity o f 150 mg 00:00: mouth 2 [place] capsule 00 (two) Medical times Branch daily. hydroCHLORO 2020-0 Yes [id number] 25mg Take 1 [facility] thiazide 25 1-30 tablet by ity of mg tablet 00:00: mouth [place] 00 daily. Medical Branch meloxicam 2020-0 Yes [id number] 15mg Take 1 U nivers 15 mg 1-30 tablet by ity of tablet 00:00: mouth [place] 00 daily. Medical Branch pregabalin 2020-0 Yes [id number] 150mg Take 1 Univers (LYRICA) 1-30 capsule by ity o f 150 mg 00:00: mouth 2 [place] capsule 00 (two) Medical times Branch daily. hydroCHLORO 2020-0 Yes [id number] 25mg Take 1 [facility] thiazide 25 1-30 tablet by ity of mg tablet 00:00: mouth [place] 00 daily. Medical Branch meloxicam 2020-0 Yes [id number] 15mg Take 1 U nivers 15 mg 1-30 tablet by ity of tablet 00:00: mouth [place] 00 daily. Medical Branch pregabalin 2020-0 Yes [id number] 150mg Take 1 Univers (LYRICA) 1-30 capsule by ity o f 150 mg 00:00: mouth 2 [place] capsule 00 (two) Medical times Branch daily. hydroCHLORO 2020-0 Yes [id number] 25mg Take 1 [facility] thiazide 25 1-30 tablet by ity of mg tablet 00:00: mouth [place] 00 daily. Medical Branch meloxicam 2020-0 Yes [id number] 15mg Take 1 U nivers 15 mg 1-30 tablet by ity of tablet 00:00: mouth [place] 00 daily. Medical Branch pregabalin 2020-0 Yes [id number] 150mg Take 1 Univers (LYRICA) 1-30 capsule by ity o f 150 mg 00:00: mouth 2 [place] capsule 00 (two) Medical times Branch daily. hydroCHLORO 2020-0 Yes [id number] 25mg Take 1 Univers thiazide 25 1-30 tablet by ity of mg tablet 00:00: mouth [place] 00 daily. Medical Branch meloxicam 2020-0 Yes [id number] 15mg Take 1 U nivers 15 mg 1-30 tablet by ity of tablet 00:00: mouth [place] 00 daily. Medical Branch pregabalin 2020-0 Yes [id number] 150mg Take 1 Univers (LYRICA) 1-30 capsule by ity o f 150 mg 00:00: mouth 2 [place] capsule 00 (two) Medical times Branch daily. hydroCHLORO 2020-0 Yes [id number] 25mg Take 1 Univers thiazide 25 1-30 tablet by ity of mg tablet 00:00: mouth [place] 00 daily. Medical Branch meloxicam 2020-0 Yes [id number] 15mg Take 1 U nivers 15 mg 1-30 tablet by ity of tablet 00:00: mouth [place] 00 daily. Medical Branch pregabalin 2020-0 Yes [id number] 150mg Take 1 Univers (LYRICA) 1-30 capsule by ity o f 150 mg 00:00: mouth 2 [place] capsule 00 (two) Medical times Branch daily. hydroCHLORO 2020-0 Yes [id number] 25mg Take 1 [facility] thiazide 25 1-30 tablet by ity of mg tablet 00:00: mouth [place] 00 daily. Medical Branch meloxicam 2020-0 Yes [id number] 15mg Take 1 U nivers 15 mg 1-30 tablet by ity of tablet 00:00: mouth [place] 00 daily. Medical Branch pregabalin 2020-0 Yes [id number] 150mg Take 1 Univers (LYRICA) 1-30 capsule by ity o f 150 mg 00:00: mouth 2 [place] capsule 00 (two) Medical times Branch daily. hydroCHLORO 2020-0 Yes [id number] 25mg Take 1 [facility] thiazide 25 1-30 tablet by ity of mg tablet 00:00: mouth [place] 00 daily. Medical Branch meloxicam 2020-0 Yes [id number] 15mg Take 1 U nivers 15 mg 1-30 tablet by ity of tablet 00:00: mouth [place] 00 daily. Medical Branch pregabalin 2020-0 Yes [id number] 150mg Take 1 Univers (LYRICA) 1-30 capsule by ity o f 150 mg 00:00: mouth 2 [place] capsule 00 (two) Medical times Branch daily. hydroCHLORO 2020-0 Yes [id number] 25mg Take 1 [facility] thiazide 25 1-30 tablet by ity of mg tablet 00:00: mouth [place] 00 daily. Medical Branch meloxicam 2020-0 Yes [id number] 15mg Take 1 U nivers 15 mg 1-30 tablet by ity of tablet 00:00: mouth [place] 00 daily. Medical Branch pregabalin 2020-0 Yes [id number] 150mg Take 1 Univers (LYRICA) 1-30 capsule by ity o f 150 mg 00:00: mouth 2 [place] capsule 00 (two) Medical times Branch daily. hydroCHLORO 2020-0 Yes [id number] 25mg Take 1 [facility] thiazide 25 1-30 tablet by ity of mg tablet 00:00: mouth [place] 00 daily. Medical Branch meloxicam 2020-0 Yes [id number] 15mg Take 1 U nivers 15 mg 1-30 tablet by ity of tablet 00:00: mouth [place] 00 daily. Medical Branch pregabalin 2020-0 Yes [id number] 150mg Take 1 Univers (LYRICA) 1-30 capsule by ity o f 150 mg 00:00: mouth 2 [place] capsule 00 (two) Medical times Branch daily. meloxicam 2020-0 Yes [id number] 15mg Take 1 U nivers 15 mg 1-30 tablet by ity of tablet 00:00: mouth [place] 00 daily. Medical Branch pregabalin 2020-0 Yes [id number] 150mg Take 1 Univers (LYRICA) 1-30 capsule by ity o f 150 mg 00:00: mouth 2 [place] capsule 00 (two) Medical times Branch daily. meloxicam 2020-0 Yes [id number] 15mg Take 1 U nivers 15 mg 1-30 tablet by ity of tablet 00:00: mouth [place] 00 daily. Medical Branch pregabalin 2020-0 Yes [id number] 150mg Take 1 Univers (LYRICA) 1-30 capsule by ity o f 150 mg 00:00: mouth 2 [place] capsule 00 (two) Medical times Branch daily. meloxicam 2020-0 Yes [id number] 15mg Take 1 U nivers 15 mg 1-30 tablet by ity of tablet 00:00: mouth [place] 00 daily. Medical Branch pregabalin 2020-0 Yes [id number] 150mg Take 1 Univers (LYRICA) 1-30 capsule by ity o f 150 mg 00:00: mouth 2 [place] capsule 00 (two) Medical times Branch daily. meloxicam 2020-0 Yes [id number] 15mg Take 1 U nivers 15 mg 1-30 tablet by ity of tablet 00:00: mouth [place] 00 daily. Medical Branch pregabalin 2020-0 Yes [id number] 150mg Take 1 Univers (LYRICA) 1-30 capsule by ity o f 150 mg 00:00: mouth 2 [place] capsule 00 (two) Medical times Branch daily. meloxicam 2020-0 Yes [id number] 15mg Take 1 U nivers 15 mg 1-30 tablet by ity of tablet 00:00: mouth [place] 00 daily. Medical Branch pregabalin 2020-0 Yes [id number] 150mg Take 1 Univers (LYRICA) 1-30 capsule by ity o f 150 mg 00:00: mouth 2 [place] capsule 00 (two) Medical times Branch daily. meloxicam 2020-0 Yes [id number] 15mg Take 1 U nivers 15 mg 1-30 tablet by ity of tablet 00:00: mouth [place] 00 daily. Medical Branch pregabalin 2020-0 Yes [id number] 150mg Take 1 Univers (LYRICA) 1-30 capsule by ity o f 150 mg 00:00: mouth 2 [place] capsule 00 (two) Medical times Branch daily. meloxicam 2020-0 Yes [id number] 15mg Take 1 U nivers 15 mg 1-30 tablet by ity of tablet 00:00: mouth [place] 00 daily. Medical Branch pregabalin 2020-0 Yes [id number] 150mg Take 1 Univers (LYRICA) 1-30 capsule by ity o f 150 mg 00:00: mouth 2 [place] capsule 00 (two) Medical times Branch daily. meloxicam 2020-0 Yes [id number] 15mg Take 1 U nivers 15 mg 1-30 tablet by ity of tablet 00:00: mouth [place] 00 daily. Medical Branch pregabalin 2020-0 Yes [id number] 150mg Take 1 Univers (LYRICA) 1-30 capsule by ity o f 150 mg 00:00: mouth 2 [place] capsule 00 (two) Medical times Branch daily. meloxicam 2020-0 Yes [id number] 15mg Take 1 U nivers 15 mg 1-30 tablet by ity of tablet 00:00: mouth [place] 00 daily. Medical Branch pregabalin 2020-0 Yes [id number] 150mg Take 1 Univers (LYRICA) 1-30 capsule by ity o f 150 mg 00:00: mouth 2 [place] capsule 00 (two) Medical times Branch daily. meloxicam 2020-0 Yes [id number] 15mg Take 1 U nivers 15 mg 1-30 tablet by ity of tablet 00:00: mouth [place] 00 daily. Medical Branch pregabalin 2020-0 Yes [id number] 150mg Take 1 Univers (LYRICA) 1-30 capsule by ity o f 150 mg 00:00: mouth 2 [place] capsule 00 (two) Medical times Branch daily. meloxicam 2020-0 Yes [id number] 15mg Take 1 U nivers 15 mg 1-30 tablet by ity of tablet 00:00: mouth [place] 00 daily. Medical Branch pregabalin 2020-0 Yes [id number] 150mg Take 1 Univers (LYRICA) 1-30 capsule by ity o f 150 mg 00:00: mouth 2 [place] capsule 00 (two) Medical times Branch daily. meloxicam 2020-0 Yes [id number] 15mg Take 1 U nivers 15 mg 1-30 tablet by ity of tablet 00:00: mouth [place] 00 daily. Medical Branch pregabalin 2020-0 Yes [id number] 150mg Take 1 Univers (LYRICA) 1-30 capsule by ity o f 150 mg 00:00: mouth 2 [place] capsule 00 (two) Medical times Branch daily. meloxicam 2020-0 Yes [id number] 15mg Take 1 U nivers 15 mg 1-30 tablet by ity of tablet 00:00: mouth [place] 00 daily. Medical Branch pregabalin 2020-0 Yes [id number] 150mg Take 1 Univers (LYRICA) 1-30 capsule by ity o f 150 mg 00:00: mouth 2 [place] capsule 00 (two) Medical times Branch daily. meloxicam 2020-0 Yes [id number] 15mg Take 1 U nivers 15 mg 1-30 tablet by ity of tablet 00:00: mouth [place] 00 daily. Medical Branch pregabalin 2020-0 Yes [id number] 150mg Take 1 Univers (LYRICA) 1-30 capsule by ity o f 150 mg 00:00: mouth 2 [place] capsule 00 (two) Medical times Branch daily. meloxicam 2020-0 Yes [id number] 15mg Take 1 U nivers 15 mg 1-30 tablet by ity of tablet 00:00: mouth [place] 00 daily. Medical Branch pregabalin 2020-0 Yes [id number] 150mg Take 1 Univers (LYRICA) 1-30 capsule by ity o f 150 mg 00:00: mouth 2 [place] capsule 00 (two) Medical times Branch daily. meloxicam 2020-0 Yes [id number] 15mg Take 1 U nivers 15 mg 1-30 tablet by ity of tablet 00:00: mouth [place] 00 daily. Medical Branch pregabalin 2020-0 Yes [id number] 150mg Take 1 Univers (LYRICA) 1-30 capsule by ity o f 150 mg 00:00: mouth 2 [place] capsule 00 (two) Medical times Branch daily. meloxicam 2020-0 Yes [id number] 15mg Take 1 U nivers 15 mg 1-30 tablet by ity of tablet 00:00: mouth [place] 00 daily. Medical Branch pregabalin 2020-0 Yes [id number] 150mg Take 1 Univers (LYRICA) 1-30 capsule by ity o f 150 mg 00:00: mouth 2 [place] capsule 00 (two) Medical times Branch daily. meloxicam 2020-0 Yes [id number] 15mg Take 1 U nivers 15 mg 1-30 tablet by ity of tablet 00:00: mouth [place] 00 daily. Medical Branch meloxicam 2020-0 Yes [id number] 15mg Take 1 U nivers 15 mg 1-30 tablet by ity of tablet 00:00: mouth [place] 00 daily. Medical Branch meloxicam 2020-0 Yes [id number] 15mg Take 1 U nivers 15 mg 1-30 tablet by ity of tablet 00:00: mouth [place] 00 daily. Medical Branch meloxicam 2020-0 Yes [id number] 15mg Take 1 U nivers 15 mg 1-30 tablet by ity of tablet 00:00: mouth [place] 00 daily. Medical Branch meloxicam 2020-0 Yes [id number] 15mg Take 1 U nivers 15 mg 1-30 tablet by ity of tablet 00:00: mouth [place] 00 daily. [facility] meloxicam 2020-0 Yes [id number] 15mg Take 1 U nivers 15 mg 1-30 tablet by ity of tablet 00:00: mouth [place] 00 daily. [facility] Branch meloxicam 2019-0 Yes [id number] 15mg Take 1 U nivers 15 mg 1-30 tablet by ity of tablet 00:00: mouth [place] 00 daily. [facility] Branch meloxicam 2019-0 Yes [id number] 15mg Take 1 U nivers 15 mg 1-30 tablet by ity of tablet 00:00: mouth [place] 00 daily. [facility] Branch meloxicam 2019-0 Yes [id number] 15mg Take 1 U nivers 15 mg 1-30 tablet by ity of tablet 00:00: mouth [place] 00 daily. [facility] Branch pregabalin 2019-2019- No [id number] 150mg Take 1 Univers (LYRICA) 1-30 12-21 capsule by ity of 150 mg 00:00: 00:00 mouth 2 [place] capsule 00 :00 (two) Medical times Branch daily. hydroCHLORO 2019- 2020- No [id number] 25mg Take 1 Univers thiazide 25 -30 07-09 tablet by it y of mg tablet 00:00: 00:00 mouth [place] 00 :00 daily. Medical Branch hydroCHLORO 2019- 2020- No [id number] 25mg Take 1 Univers thiazide 25 1-30 07-09 tablet by it y of mg tablet 00:00: 00:00 mouth [place] 00 :00 daily. [facility] Branch hydroCHLORO 2019- 2020- No [id number] 25mg Take 1 Univers thiazide 25 1-30 07-09 tablet by it y of mg tablet 00:00: 00:00 mouth [place] 00 :00 daily. [facility] Branch hydroCHLORO 2019-0 2020- No [id number] 25mg Take 1 Univers thiazide 25 1-30 07-09 tablet by it y of mg tablet 00:00: 00:00 mouth [place] 00 :00 daily. [facility] metoprolol 2019-0 2020- No [id number] 25mg Take 1 U nivers succinate 1-30 02-24 tablet by ity of XL 25 mg 24 00:00[place] :00 daily. [facility] metoprolol 2019- 2020- No [id number] 25mg Take 1 U nivers succinate 1-30 02-24 tablet by ity of XL 25 mg 24 00:00: 00:00 [place] 00 :00 daily. [facility] metoprolol 2020- No [id number] 25mg Take 1 U nivers succinate -30 24 tablet by ity of XL 25 mg [...] COMPLEX 0-31 mouth. ity of ORAL 17:11: [place] [address] Medical Branch traZODONE 2018-08 Yes 100mg Take 100 Uni vers 100 mg 0-31 mg by ity of tablet 17:11: mouth at [place] [address] bedtime. Medical Branch VITAMIN B 2018-08 Yes Take by Unive rs COMPLEX 0-31 mouth. ity of ORAL 17:11: [place] [address] Medical Branch traZODONE 2018-08 Yes 100mg Take 100 Uni vers 100 mg 0-31 mg by ity of tablet 17:11: mouth at [place] [address] bedtime. Medical Branch VITAMIN B 2018-08 Yes Take by Unive rs COMPLEX 0-31 mouth. ity of ORAL 17:11: [place] [address] Medical Branch traZODONE 2018-08 Yes 100mg Take 100 Uni vers 100 mg 0-31 mg by ity of tablet 17:11: mouth at [place] [address] bedtime. Medical Branch VITAMIN B 2018-08 Yes Take by Unive rs COMPLEX 0-31 mouth. ity of ORAL 17:11: [place] [address] Medical Branch traZODONE 2018-08 Yes 100mg Take 100 Uni vers 100 mg 0-31 mg by ity of tablet 17:11: mouth at [place] 25 bedtime. Medical Branch traZODONE 0 Yes 100mg Take 100 Uni vers 100 mg 8-29 mg by ity of tablet 19:24: mouth at [place] 39 bedtime. Medical Branch traZODONE 0 Yes 100mg Take 100 Uni vers 100 mg 8-29 mg by ity of tablet 19:24: mouth at [place] 39 bedtime. Medical Branch traZODONE 0 Yes 100mg Take 100 Uni vers 100 mg 8-29 mg by ity of tablet 19:24: mouth at [place] 39 bedtime. Medical Branch traZODONE 0 Yes 100mg Take 100 Uni vers 100 mg 8-29 mg by ity of tablet 19:24: mouth at [place] 39 bedtime. Medical Branch traZODONE Yes 100mg Take 100 Uni vers 100 mg 8-29 mg by ity of tablet 19:24: mouth at [place] [address] bedtime. Medical Branch traZODONE Yes 100mg Take 100 Uni vers 100 mg 8-29 mg by ity of tablet 19:24: mouth at [place] [address] bedtime. Medical Branch benztropine Yes 1mg Take [...] 21 times Medical daily. Branch metoprolol Yes [id number] 25mg Take 1 Un nneka succinate 8-29 tablet by ity o f XL 25 mg 24 00:00: mouth [place] hr tablet 00 daily. Medical Branch hydroCHLORO Yes [id number] 25mg Take 1 Univers thiazide 25 8-29 tablet by ity of mg tablet 00:00: mouth [place] 00 daily. Medical Branch meloxicam Yes [id number] 15mg Take 1 U nivers 15 mg 8-29 tablet by ity of tablet 00:00: mouth [place] 00 daily. Medical Branch metoprolol Yes [id number] 25mg Take 1 Un nneka succinate 8-29 tablet by ity o f XL 25 mg 24 00:00: mouth [place] hr tablet 00 daily. Medical Branch hydroCHLORO Yes [id number] 25mg Take 1 Univers thiazide 25 8-29 tablet by ity of mg tablet 00:00: mouth [place] 00 daily. Medical Branch meloxicam Yes [id number] 15mg Take 1 U nivers 15 mg 8-29 tablet by ity of tablet 00:00: mouth [place] 00 daily. Medical Branch metoprolol 2018- Yes [id number] 25mg Take 1 Un nneka succinate 8-29 tablet by ity o f XL 25 mg 24 00:00: mouth [place] hr tablet 00 daily. Medical Branch hydroCHLORO Yes [id number] 25mg Take 1 Univers thiazide 25 8-29 tablet by ity of mg tablet 00:00: mouth [place] 00 daily. [facility] Branch meloxicam Yes [id number] 15mg Take 1 U nivers 15 mg 8-29 tablet by ity of tablet 00:00: mouth [place] 00 daily. Medical Branch metoprolol Yes [id number] 25mg Take 1 Un nneka succinate 8-29 tablet by ity o f XL 25 mg 24 00:00: mouth [place] hr tablet 00 daily. Medical Branch hydroCHLORO Yes [id number] 25mg Take 1 Univers thiazide 25 8-29 tablet by ity of mg tablet 00:00: mouth [place] 00 daily. Medical Branch meloxicam Yes [id number] 15mg Take 1 U nivers 15 mg 8-29 tablet by ity of tablet 00:00: mouth [place] 00 daily. Medical Branch metoprolol 2018- Yes [id number] 25mg Take 1 Un nneka succinate 8-29 tablet by ity o f XL 25 mg 24 00:00: mouth [place] hr tablet 00 daily. Medical Branch hydroCHLORO 0 Yes [id number] 25mg Take 1 Univers thiazide 25 8-29 tablet by ity of mg tablet 00:00: mouth [place] 00 daily. Medical Branch meloxicam Yes [id number] 15mg Take 1 U nivers 15 mg 8-29 tablet by ity of tablet 00:00: mouth [place] 00 daily. Medical Branch metoprolol Yes [id number] 25mg Take 1 Un nneka succinate 8-29 tablet by ity o f XL 25 mg 24 00:00: mouth [place] hr tablet 00 daily. Medical Branch hydroCHLORO 2018-0 Yes [id number] 25mg Take 1 Univers thiazide 25 8-29 tablet by ity of mg tablet 00:00: mouth [place] 00 daily. Medical Branch meloxicam Yes [id number] 15mg Take 1 U nivers 15 mg 8-29 tablet by ity of tablet 00:00: mouth [place] 00 daily. Medical Branch metoprolol Yes [id number] 25mg Take 1 Un nneka succinate 8-29 tablet by ity o f XL 25 mg 24 00:00: mouth [place] hr tablet 00 daily. Medical Branch hydroCHLORO Yes [id number] 25mg Take 1 Univers thiazide 25 8-29 tablet by ity of mg tablet 00:00: mouth [place] 00 daily. [facility] meloxicam Yes [id number] 15mg Take 1 U nivers 15 mg 8-29 tablet by ity of tablet 00:00: mouth [place] 00 daily. [facility] metoprolol 2020- No [id number] 25mg Take 1 U nivers succinate 8-29 -30 tablet by ity of XL 25 mg 24 00:00: 00:00 [place] tablet 00 :00 daily. [facility] hydroCHLORO 2020- No [id number] 25mg Take 1 Univers thiazide 25 8-29 -30 tablet by it y of mg tablet 00:00: 00:00 mouth [place] 00 :00 daily. [facility] Branch meloxicam 2020- No [id number] 15mg Take 1 Univers 15 mg 8-28 09-30 tablet by ity of tablet 00:00: 00:00 mouth [place] 00 :00 daily. Medical Branch metoprolol 2020- No [id number] 25mg Take 1 U nivers succinate 8-29 01-30 tablet by ity of XL 25 mg 24 00:00: 00:00 [place] tablet 00 :00 daily. [facility] hydroCHLORO 2020- No [id number] 25mg Take 1 Univers thiazide 25 8-29 -30 tablet by it y of mg tablet 00:00: 00:00 mouth [place] 00 :00 daily. [facility] meloxicam 2020- No [id number] 15mg Take 1 Univers 15 mg 8-29 -30 tablet by ity of tablet 00:00: 00:00 mouth [place] 00 :00 daily. Medical Branch Dose No Unknown 7-30 00:00: 00 Dose 2019-0 No Unknown 7-30 00:00: 00 Dose 2019-0 No Unknown 730 00:00: 00 Dose 2019-0 No Unknown 7-30 00:00: 00 Dose 2019-0 No Unknown 730 00:00: 00 Dose 2019-0 No Unknown 730 00:00: 00 METOPROLOL 2019- No [id number] TAKE 1 U nivers SUCCINATE 7-06 07-29 TABLET BY ity of XL 25 mg 24 00:00: 00:[place] MOUTH [place] hr tablet 00 :00 EVERY DAY Medic al Branch METOPROLOL 2019- No [id number] TAKE 1 U nivers SUCCINATE 7-06 07-29 TABLET BY ity of XL 25 mg 24 00:00: 00:00 MOUTH [place] hr tablet 00 :00 EVERY DAY Medic al Branch hydroCHLORO 2019- No [id number] 25mg Take 1 Univers thiazide 25 -29 04-29 tablet by it y of mg tablet 00:00: 00:00 mouth [place] 00 :00 daily. Medical Branch meloxicam 2019- No [id number] 7.5mg Take 1 Univers (MOBIC) 7.5 -30 -29 tablet by it y of mg tablet 00:00: 00:00 mouth [place] 00 :00 daily. Medical Branch hydroCHLORO 2019- No [id number] 25mg Take 1 Univers thiazide 25 5-30 -29 tablet by it y of mg tablet 00:00: 00:00 mouth [place] 00 :00 daily. Medical Branch meloxicam 2019- No [id number] 7.5mg Take 1 Univers (MOBIC) 7.5 5-30 [...] 3-28 mouth. ity of ORAL 16:11: [address] VITAMIN B Yes Take by Unive rs COMPLEX 3-28 mouth. ity of ORAL 16:11: [address] VITAMIN B Yes Take by Unive rs COMPLEX 3-28 mouth. ity of ORAL 16:11: [address] VITAMIN B Yes Take by Unive rs COMPLEX 3-28 mouth. ity of ORAL 16:11: [address] VITAMIN B Yes Take by Unive rs COMPLEX 3-28 mouth. ity of ORAL 16:11: [address] VITAMIN B Yes Take by Unive rs COMPLEX 3-28 mouth. ity of ORAL 16:11: [address] amlodipine No 1mg 5 mg tablet 2-19 00:00: 00 amlodipine 0 No 1mg 5 mg tablet 2-19 00:00: 00 amlodipine 0 No 1mg 5 mg tablet 2-19 00:00: 00 amlodipine 2018 No 1mg 10 mg 2-11 tablet 00:00: 00 amlodipine 2017-08 No 1mg 10 mg 2-11 tablet 00:00: 00 amlodipine 2018 No 1mg 10 mg 2-11 tablet 00:00: 00 amlodipine 2018- No 1mg 10 mg 0-15 [...] mg 9-20 tablet 00:00: 00 Zyprexa 15 No 1mg mg tablet 05-19 00:00: 00 [...] 8-15 tablet 00:00: 00 cyclobenzap 2018-0 Yes [id number] Bid prn Univers rine 10 mg 8-02 ity of tablet 00:00: [address] Branch cyclobenzap 2018-0 Yes [id number] Bid prn Univers rine 10 mg 8-02 ity of tablet 00:00: [address] Branch cyclobenzap 2018-0 Yes [id number] Bid prn Univers rine 10 mg 8-02 ity of tablet 00:00: [address] Branch cyclobenzap 2018-0 Yes [id number] Bid prn Univers rine 10 mg 8-02 ity of tablet 00:00: [address] Branch cyclobenzap 2018-0 Yes [id number] Bid prn Univers rine 10 mg 8-02 ity of tablet 00:00: [address] Branch cyclobenzap 2018-0 Yes [id number] Bid prn Univers rine 10 mg 8-02 ity of tablet 00:00: [address] cyclobenzap 2018-0 Yes [id number] Bid prn Univers rine 10 mg 8-02 ity of tablet 00:00: [place] 00 Medical Branch cyclobenzap 2018-0 Yes [id number] Bid prn Univers rine 10 mg 8-02 ity of tablet 00:00: [place] 00 Medical Branch cyclobenzap 2018-0 Yes [id number] Bid prn Univers rine 10 mg 8-02 ity of tablet 00:00: [place] 00 Medical Branch cyclobenzap 2018-0 Yes [id number] Bid prn Univers rine 10 mg 8-02 ity of tablet 00:00: [place] 00 Medical Branch cyclobenzap 2018-0 2020- No [id number] Bid prn Univers rine 10 mg 8-24 ity of tablet 00:00: 00:00 [place] 00 :00 Medical Branch cyclobenzap 2018-0 2020- No [id number] Bid prn Univers rine 10 mg 8-10-24 ity of tablet 00:00: 00:00 [place] 00 :00 Medical Branch cyclobenzap 2018-0 2020- No [id number] Bid prn Univers rine 10 mg 04-01 [...] 150 mg 6-14 tablet 00:00: 00 hydrochloro 2015-0 No 1mg thiazide 5-26 12.5 mg 00:00: tablet 00 hydrochloro 2015-0 No 1mg thiazide 5-26 12.5 mg 00:00: tablet 00 hydrochloro 2015-0 No 1mg thiazide 5-26 12.5 mg 00:00: tablet 00 furosemide 2015-0 No 1mg 40 mg 5-19 tablet 00:00: 00 trazodone 2015-0 No 1mg 50 mg 5-19 tablet 00:00: 00 Cymbalta 20 2015-0 No 1mg mg 5-19 capsule,del 00:00: ayed [...] 5-19 capsule 00:00: 00 DULoxetine 2016-0 Yes [id number] Reynold sey HCl 30 MG 3-16 Seybold oral 00:00: - Capsule 00 Externa Delayed l Release Sprinkle hydrOXYzine 2016-0 Yes [id number] Ke lsey HCl 25 MG 3-16 Seybold oral Tablet 00:00: - 00 Externa l DULoxetine 2016-0 Yes [id number] Reynold sey HCl 30 MG 3-16 Seybold oral 00:00: - Capsule 00 Externa Delayed l Release Sprinkle hydrOXYzine 2016-0 Yes [id number] Ke lsey HCl 25 MG 3-16 Seybold oral Tablet 00:00: - 00 Externa l DULoxetine 2016-0 Yes Jelena HCl 30 MG 3-16 Seybold oral 00:00: - Capsule 00 Externa Delayed l Release Sprinkle hydrOXYzine 2016-0 Yes Jelena HCl 25 MG 3-16 Seybold oral Tablet 00:00: - 00 Externa l DULoxetine 2016-0 Yes [id number] Reynold sey HCl 30 MG 3-16 Seybold oral 00:00: - Capsule 00 Externa Delayed l Release Sprinkle hydrOXYzine 2016-0 Yes [id number] Ke lsey HCl 25 MG 3-16 Seybold oral Tablet 00:00: - 00 Externa l DULoxetine 2016-0 Yes [id number] Reynold sey HCl 30 MG 3-16 Seybold oral 00:00: - Capsule 00 Externa Delayed l Release Sprinkle hydrOXYzine 2016-0 Yes [id number] Ke lsey HCl 25 MG 3-16 Seybold oral Tablet 00:00: - 00 Externa l DULoxetine 2016-0 Yes [id number] Reynold sey HCl 30 MG 3-16 Seybold oral 00:00: - Capsule 00 Externa Delayed l Release Sprinkle hydrOXYzine 2015-0 Yes [id number] Ke lsey HCl 25 MG 3-16 Seybold oral Tablet 00:00: - 00 Externa l DULoxetine 2015-0 2023- No [id number] Ke lsey HCl 30 MG 3-16 04-24 Seybold oral 00:00: 00:00 - Capsule 00 :00 Externa Delayed l Release Sprinkle hydrOXYzine 2015-0 2023- No [id number] K elsey HCl 25 MG 3-16 04-24 [...] Externa l COVID-19 BIVALENT 2022-08-28 Completed Jelena ybold VACCINE MODERNA 00:00:00 - Externa l COVID-19 BIVALENT 2022-08-28 Completed Jelena ybold VACCINE MODERNA 00:00:00 - Externa l COVID-19 BIVALENT 2022-08-28 Completed Jelena Seybold VACCINE MODERNA 00:00:00 - Externa l COVID-19 BIVALENT 2022-08-28 Completed Jelena ybold VACCINE MODERNA 00:00:00 - Externa l Moderna COVID-19 2022-08-28 Completed Vaccine Bivalent 00:00:00 Booster for ages 6 + years (18+, 12-17, 6-11) Moderna COVID-19 2022-08-28 Completed Vaccine Bivalent 00:00:00 Booster for ages 6 + years (18+, 12-17, 6-11) Moderna COVID-19 2022-08-28 Completed Vaccine Bivalent 00:00:00 Booster for ages 6 + years (18+, 12-17, 6-11) Covid-19 Vaccine 2021-10-19 Completed Jelena delgadold Moderna [...] Pf Covid-19 Vaccine 2021-10-19 Completed Jelena Umaña eyjuan antonio Moderna (Spikevax), 00:00:00 - Ext ernal [...] 00:00:00 - External Pneumococcal Vaccine, 2019-04-29 Completed Renyold sey Seybold Polysaccharide 00:00:00 - External Tdap- [...] 00:00:00 - External Hepatitis A 2009-04-17 Completed Jelnea Eatonol d 00:00:00 - External Hepatitis A [...] Completed Jelena Seyb old Mcv4,unspecified 00:00:00 - Lye Boiler 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 Hepatitis A 2008-02-18 Completed Jelena Seybol d 00:00:00 - External HPV 4 (Human 2008-02-18 Completed Jelena Seybo ld Papillomavirus) 00:00:00 - Externa l Meningococcal 2008-02-18 Completed Jelena Seyb old Mcv4,unspecified 00:00:00 - Lye Boiler 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 Hepatitis A 2008-02-18 Completed Jelena Seybol d 00:00:00 - External HPV 4 (Human 2008-02-18 Completed Jelena Seybo ld Papillomavirus) 00:00:00 - Externa l Meningococcal 2008-02-18 Completed Jelena Seyb old Mcv4,unspecified 00:00:00 - Lye Boiler 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 Hepatitis A 2008-02-18 Completed Jelena Seybol d 00:00:00 - External HPV 4 (Human 2008-02-18 Completed Jelena Seybo ld Papillomavirus) 00:00:00 - Externa l Meningococcal 2008-02-18 Completed Jelena Seyb old Mcv4,unspecified 00:00:00 - Lye Boiler 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 Hepatitis A 2008-02-18 Completed Jelena Seybol d 00:00:00 - External Hepatitis A 2008-02-18 Completed Jelena Seybol d 00:00:00 - External HPV 4 (Human 2008-02-18 Completed Jelena Seybo ld Papillomavirus) 00:00:00 - Externa l Meningococcal 2008-02-18 Completed Jelena Seyb old Mcv4,unspecified 00:00:00 - Lye Boiler 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 Hepatitis A 2008-02-18 Completed Jelena Seybol d 00:00:00 - External HPV 4 (Human 2008-02-18 Completed Jelena Seybo ld Papillomavirus) 00:00:00 - Externa l Meningococcal 2008-02-18 Completed Jelena Seyb old Mcv4,unspecified 00:00:00 - Lye Boiler 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 HPV 4 (Human 2008-02-18 Completed Jelena Seybo ld Papillomavirus) 00:00:00 - Externa l Meningococcal 2008-02-18 Completed Jelena Seyb old Mcv4,unspecified 00:00:00 - Lye Boiler 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 Hepatitis A 2008-02-18 Completed Jelena Seybol d 00:00:00 - External HPV 4 (Human 2008-02-18 Completed Jelena Seybo ld Papillomavirus) 00:00:00 - Externa l Meningococcal 2008-02-18 Completed Jelena Seyb old Mcv4,unspecified 00:00:00 - Lye Boiler 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 Hepatitis A 2008-02-18 Completed Jelena Seybol d 00:00:00 - External HPV 4 (Human 2008-02-18 Completed Jelena Seybo ld Papillomavirus) 00:00:00 - Externa l Meningococcal 2008-02-18 Completed Jelena Seyb old Mcv4,unspecified 00:00:00 - Lye Boiler 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 Hepatitis A 2008-02-18 Completed Jelena Seybol d 00:00:00 - External HPV 4 (Human 2008-02-18 Completed Jelena Seybo ld Papillomavirus) 00:00:00 - Externa l Meningococcal 2008-02-18 Completed Jelena Seyb old Mcv4,unspecified 00:00:00 - Lye Boiler 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 Hepatitis A 2008-02-18 Completed Jelena Seybol d 00:00:00 - External HPV 4 (Human 2008-02-18 Completed Jelena Seybo ld Papillomavirus) 00:00:00 - Externa l Meningococcal 2008-02-18 Completed Jelena Seyb old Mcv4,unspecified 00:00:00 - Lye Boiler 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 Hepatitis A 2008-02-18 Completed Jelena Seybol d 00:00:00 - External HPV 4 (Human 2008-02-18 Completed Jelena Seybo ld Papillomavirus) 00:00:00 - Externa l Meningococcal 2008-02-18 Completed Jelena Seyb old Mcv4,unspecified 00:00:00 - Lye Boiler 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 Hepatitis A 2008-02-18 Completed Jelena Seybol d 00:00:00 - External HPV 4 (Human 2008-02-18 Completed Jelena Seybo ld Papillomavirus) 00:00:00 - Externa l Meningococcal 2008-02-18 Completed Jelena Seyb old Mcv4,unspecified 00:00:00 - Lye Boiler 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 Hepatitis A 2008-02-18 Completed Jelena Paiz d 00:00:00 - External HPV 4 (Human 2008-02-18 Completed Jelena Ashley ld Papillomavirus) 00:00:00 - Externa l Meningococcal 2008-02-18 Completed Jelena rod Mcv4,unspecified 00:00:00 - Lye Boiler 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 Td (adult), 2 2006-05-25 Completed [...] Td (adult), 2 Lf 2006-05-25 Completed Jelena nweman tetanus toxoid, 00:00:00 - Externa l preservative [...] 2002-04-21 Completed Jelena Seybold 00:00:00 - External HIB- Haemophilus 1997-05-31 Completed Jelena Umaña eyboconstance Influenzae Type B 00:00:00 - Exter nal [...] - External OPV- Oral Polio 1994-08-05 Completed Jelean Se ybold Vaccine 00:00:00 - External OPV- [...] rtussis OPV- Oral Polio 1993 Completed Jelena uGevara ybold Vaccine 00:00:00 - External DTP- 1993 [...] Exter nal HIB- Haemophilus 1993 Completed Jelena newman Influenzae Type B 00:00:00 - Exter nal HIB- Haemophilus 1993 Completed Jelena shahboconstance Influenzae Type B 00:00:00 [...] Jelena Ashley ld Unspecified 00:00:00 - External DTaP Unspecified Unknown Completed Jelena newman - External DTP- Unknown Completed Jelena Ibrahim Diphtheria,Tetanus,Pe - E xternal rtussis DTP- Unknown Completed Jelena Ibrahim Diphtheria,Tetanus,Pe - E xternal rtussis DTP- Unknown Completed Jelena Ibrahim Diphtheria,Tetanus,Pe - E xternal rtussis DTP- Unknown Completed Jelena Ibrahim Diphtheria,Tetanus,Pe - E xternal rtussis DTP- Unknown Completed Jelena Ibrahim Diphtheria,Tetanus,Pe - E xternal rtussis Hepatitis A Unknown Completed [facility] d - External Hepatitis A Unknown Completed [facility] d - External Hepatitis B, Unknown Completed Jelena [facility] Unspecified - External Hepatitis B, Unknown Completed [facility] Unspecified - External Hepatitis B, Unknown Completed [facility] Unspecified - External HIB- Haemophilus Unknown Completed [facility] Influenzae Type B - Exter nal HIB- Haemophilus Unknown Completed [facility] Influenzae Type B - Exter nal HIB- Haemophilus Unknown Completed [facility] Influenzae Type B - Exter nal HIB- Haemophilus Unknown Completed [facility] Influenzae Type B - Exter nal HPV 4 (Human Unknown Completed [facility] Papillomavirus) - Externa l HPV 4 (Human Unknown Completed [facility] Papillomavirus) - Externa l HPV 4 (Human Unknown Completed [facility] Papillomavirus) - Externa l Meningococcal Unknown Completed Jelena [facility] Mcv4,unspecified - Lye Boiler 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 MMR- Measles, Mumps, Unknown Completed [facility] Rubella - External MMR- Measles, Mumps, Unknown Completed [facility] Rubella - External Pneumococcal Vaccine, Unknown Completed [facility] Conjugate 7 - External Pneumococcal Vaccine, Unknown Completed [facility] Polysaccharide - External OPV- Oral Polio Unknown Completed [facility] Vaccine - External OPV- Oral Polio Unknown Completed [facility] Vaccine - External OPV- Oral Polio Unknown Completed [facility] Vaccine - External OPV- Oral Polio Unknown Completed [facility] Vaccine - External Td (adult), 2 Lf Unknown Completed [facility] tetanus toxoid, - Externa l preservative free, adsorbed Tdap- (Boostrix, Unknown Completed [facility] Adacel) - External Varicella Vaccine Unknown Completed [facility] - External COVID-19 BIVALENT Unknown Completed [facility] VACCINE MODERNA - Externa l Covid-19 Vaccine Unknown Completed [facility] Moderna (Spikevax), - Ext ernal Mrna-lnp, Bradley Protein, Pf Covid-19 Vaccine Unknown Completed [facility] Moderna (Spikevax), - Ext ernal Mrna-lnp, [place] Protein, Pf DTaP Unspecified Unknown Completed Jelena Layne shahboconstance - External DTP- Unknown Completed Jelena Ibrahim Diphtheria,Tetanus,Pe - E xternal rtussis DTP- Unknown Completed Jelena Guevar[place]ale Diphtheria,Tetanus,Pe - E xternal rtussis DTP- Unknown Completed Jelena [place] Diphtheria,Tetanus,Pe - E xternal rtussis DTP- Unknown Completed Jelena [place] Diphtheria,Tetanus,Pe - E xternal rtussis DTP- Unknown Completed Jelena [place] Diphtheria,Tetanus,Pe - E xternal rtussis Hepatitis A Unknown Completed Jelena Paiz d - External Hepatitis A Unknown Completed Jelena Paiz d - External Hepatitis B, Unknown Completed Jelena nolasco Unspecified - External Hepatitis B, Unknown Completed Jelena nolasco Unspecified - External Hepatitis B, Unknown Completed Jelena nolasco Unspecified - External HIB- Haemophilus Unknown Completed Jelena Layne paty Influenzae Type B - Exter nal HIB- Haemophilus Unknown Completed Jelena paty Influenzae Type B - Exter nal HIB- Haemophilus Unknown Completed Jelena alyssajuan antonio Influenzae Type B - Exter nal HIB- Haemophilus Unknown Completed Jelena S alyssajuan antonio Influenzae Type B - Exter nal HPV 4 (Human Unknown Completed Jelena nolasco Papillomavirus) - Externa l HPV 4 (Human Unknown Completed Jelena nolasco Papillomavirus) - Externa l HPV 4 (Human Unknown Completed Jelenalit nolasco Papillomavirus) - Externa l Meningococcal Unknown Completed Jelenalit rod Mcv4,unspecified - Lye Boiler 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 MMR- Measles, Mumps, Unknown Completed Ashlielayne Ibrahim Rubella - External MMR- Measles, Mumps, Unknown Completed Ashlie Ibrahim Rubella - External Pneumococcal Vaccine, Unknown Completed Reynold Ibrahim Conjugate 7 - External Pneumococcal Vaccine, Unknown Completed Reynold Ibrahim Polysaccharide - External OPV- Oral Polio Unknown Completed Jelena Guevara tiffanymarcel Vaccine - External OPV- Oral Polio Unknown Completed Jelena henley Vaccine - External OPV- Oral Polio Unknown Completed Jelena henley Vaccine - External OPV- Oral Polio Unknown Completed Jelena Guevara kale Vaccine - External Td (adult), 2 Lf Unknown Completed Jelena newman tetanus toxoid, - Externa l preservative free, adsorbed Tdap- (Boostrix, Unknown Completed Jelena newman Adacel) - External Varicella Vaccine Unknown Completed [...] Time Observation Value Comments Source Systolic blood 2023-07-01 16:21:00 178 mm[Hg] Jelena Ibrahim - pressure External Diastolic blood 2023-07-01 16:21:00 79 mm[Hg] Beth Ibrahim - pressure External Heart rate 2023-07-01 16:21:00 70 /min Jelena newman - External Body temperature 2023-07-01 16:21:00 36.72 Mera Ashlie Ibrahim - External Respiratory rate 2023-07-01 16:21:00 16 /min Ashlie Ibrahim - External Body height 2023-07-01 16:21:00 160 cm Jelena newman - External Body weight 2023-07-01 16:21:00 135.626 kg Jelena newman - External BMI 2023-07-01 16:21:00 52.97 kg/m2 Jelena newman - External Systolic blood 2023-06-26 18:00:00 145 mm[Hg] [facility] Diastolic blood 2023-06-26 18:00:00 113 mm[Hg] [facility] Heart rate 2023-06-26 18:00:00 78 /min [facility] Body temperature 2023-06-26 18:00:00 37 Mera [facility] 2023-06-26 18:00:00 19 /min [facility] Oxygen saturation in 2023-06-26 18:00:00 97 /min [facility] blood by [facility] Pulse oximetry Branch Body height 2023-06-26 16:11:00 160 cm [facility] Body weight 2023-06-26 16:11:00 129.275 kg [facility] BMI 2023-06-26 16:11:00 50.49 kg/m2 [facility] Heart rate 2023-05-28 15:30:00 64 /min Jelena S eybold - External Body temperature 2023-05-28 15:30:00 36.72 Mera Ashlie ey Seybold - External Respiratory rate 2023-05-28 15:30:00 16 /min Ashlie ey Seybold - External Body height 2023-05-28 15:30:00 160 cm Jelena S eybold - External Body weight 2023-05-28 15:30:00 135.626 kg Jelena S eybold - External BMI 2023-05-28 15:30:00 52.97 kg/m2 Jelena S eybold - External Systolic blood 2023-05-06 15:25:00 100 mm[Hg] Jelena Seybold - pressure External Diastolic blood 2023-05-06 15:25:00 85 mm[Hg] Kelse y Seybold - pressure External Heart rate 2023-05-06 15:25:00 81 /min Jelena S eybold - External Body temperature 2023-05-06 15:25:00 36.5 Mera Ashlie ey Seybold - External Body height 2023-05-06 15:25:00 160 cm Jelena S eybold - External Body weight 2023-05-06 15:25:00 135.626 kg Jelena S eybold - External BMI 2023-05-06 15:25:00 52.97 kg/m2 Jelena S eybold - External Systolic blood 2023-04-28 13:43:00 140 mm[Hg] Jelena Seybold - pressure External Diastolic blood 2023-04-28 13:43:00 100 mm[Hg] Kelse y Seybold - pressure External Heart rate 2023-04-28 13:43:00 102 /min Jelena S eybold - External Body weight 2023-04-28 13:43:00 135.898 kg Jelena S eybold - External BMI 2023-04-28 13:43:00 53.07 kg/m2 Jelena S eybold - External Systolic blood 2023-04-24 13:49:00 140 mm[Hg] Jelena Seybold - pressure External Diastolic blood 2023-04-24 13:49:00 103 mm[Hg] Reynoldse y Seybold - pressure External [...] saturation in 2023-04-24 13:49:00 96 /min Jelena Guevaratiffanymarcel - Arterial blood by [...] Heart rate 2023-01-28 15:56:00 80 /min Jelena S eybold - External Respiratory rate 2023-01-28 15:56:00 [...] saturation in 2022-12-22 14:00:00 97 /min Jelena Sekale - Arterial blood by External Pulse oximetry [...] saturation in 2022-09-09 14:45:00 99 /min Jelena Guevaraybold - Arterial blood by External Pulse oximetry [...] Medical Branch Body temperature 2019-10-25 14:56:00 36.67 Mear [facility] Body height 2019-10-25 14:56:00 160 cm [facility] Body weight 2019-10-25 14:56:00 110.904 kg [facility] BMI 2019-10-25 14:56:00 43.31 kg/m2 [facility] Oxygen saturation in 2019-10-25 14:56:00 99 /min [facility] ne[facility]ida Pulse oximetry Branch Systolic blood 2019-10-24 [...] 99 /min [facility] Arterial blood by [facility] Pulse oximetry Branch Systolic blood [...] 2019-09-29 16:38:00 20 /min [facility] Body height 2019-09-29 16:38:00 160 cm [facility] Body weight 2019-09-29 16:38:00 109.77 kg [facility] BMI 2019-09-29 16:38:00 42.87 kg/m2 [facility] Systolic blood 2019-04-28 14:39:00 105 mm[Hg] [facility] Diastolic blood 2019-04-28 14:39:00 62 mm[Hg] [facility] Heart rate 2019-04-28 14:39:00 87 /min [facility] Body temperature 2019-04-28 14:39:00 36.94 Mera [facility] Respiratory rate 2019-04-28 14:39:00 18 /min [facility] Body height 2019-04-28 14:39:00 160 cm [facility] Body weight 2019-04-28 14:39:00 123.832 kg [facility] BMI 2019-04-28 14:39:00 48.36 kg/m2 [facility] Systolic blood 2023-04-16 15:02:00 149 mm[Hg] [facility] Diastolic blood 2023-04-16 15:02:00 86 mm[Hg] [facility] Heart rate 2023-04-16 15:02:00 68 /min [facility] Body temperature 2023-04-16 15:02:00 36.67 Mera [facility] Respiratory rate 2023-04-16 15:02:00 17 /min [facility] Oxygen saturation in 2023-04-16 15:02:00 98 /min [facility] Arterial blood by Medical Ce nter Pulse oximetry Body height 2023-04-16 11:02:00 160 cm [facility] Body weight 2023-04-16 11:02:00 123.378 kg [facility] BMI 2023-04-16 11:02:00 48.18 kg/m2 [facility] BP Systolic 2022-09-10 11:46:00 168 [...] COMP. METABOLIC PANEL 2023-06-26 16:39:00 Sylvester Hutchinson [facility] ([id number]) Medical Branch CBC WITH DIFF 2023-06-26 16:39:00 Sylvester Hutchinson [facility] Medical Branch CONSENT/REFUSAL FOR 2023-06-26 16:18:39 Doctor Unassigned, [facility] DIAGNOSIS AND TREATMENT [facility] BRAIN WITHOUT IV 2023-04-16 12:20:30 Rachel Mahoney [facility] CONTRAST [facility] URINALYSIS W/ REFLEX 2023-04-16 11:53:00 Juan Carlos [facility] URINE CULTURE [facility] RAPID DRUG SCREEN, URINE 2023-04-16 11:53:00 [facility] COUNT & AUTO 2023-04-16 11:30:00 Rachel Mahoney [facility] DIFFERENTIAL [facility] COMPREHENSIVE METABOLIC 2023-04-16 11:30:00 Juan Carlos [facility]R 2023-04-16 11:30:00 Rachel Mahoney [facility] TROPONIN I 2023-04-16 11:30:00 Rachel Mahoney [facility] MANUAL DIFFERENTIAL 2023-04-16 11:30:00 Rachel Mahoney [facility] CBC W/PLT COUNT & AUTO 2023-04-16 11:30:00 Rachel Mahoney [facility] DIFFERENTIAL [facility] EKG-SCANNED 2023-04-16 00:00:00 [facility] REFERRAL- 2020-09-27 06:01:00 Doctor Lucina, [facility] REQUEST/RESPONSE [facility] MR KNEE LEFT WO CONTRAST 2020-08-20 18:12:04 Alexandre Delgado [facility] [place] NOTICE OF PRIVACY 2020-08-02 06:01:00 Doctor Lucina, [facility] PRACTICES [facility] AGREEMENTS AUTHORIZATIONS 2020-08-02 06:01:00 Doctor Lucina, [facility] AND IRREVOCABLE [facility] ASSIGNMENTS (FORM 2001) VACCINATIONS - CONSENTS, 2020-05-17 05:01:00 Doctor Verdugo, [facility] ELIGIBILITY, HISTORY [facility] XR KNEE 3 VW LEFT 2020-03-16 13:13:36 Alexandre Delgado [facility] [place] SCANNED LAB RESULTS 2020-03-08 05:01:00 Doctor Verdugo, [facility] ASSIGNMENT OF BENEFITS 2020-02-10 13:57:41 [facility] BCPC - PRESCRIPTION / 2019-09-08 06:01:00 Doctor Marlin Verdugo [facility] ORDER [facility] AGREEMENTS AUTHORIZATIONS 2019-04-28 05:01:00 Doctor Lucina, [facility] AND IRREVOCABLE [facility] ASSIGNMENTS (FORM 2001) 20189 Ecg Routine Ecg 2018-06-14 00:00:00 W/least 12 [...] - [facility] Test 00:00:00 Moderna series) [code = [facility] COVID-19 VACCINE (3 - Moderna series)] Future Scheduled 2014 Screening for malignant [facility] Test 00:00:00 neoplasm of cervix Medical C enter (procedure) [code = 198245364] Future Scheduled 2014 Screening for malignant [facility] Test 00:00:00 neoplasm of cervix Medical C enter (procedure) [code = 512044478] Future Scheduled 2014 Screening for malignant [facility] Test 00:00:00 neoplasm of cervix Medical C enter (procedure) [code = 762411284] Future Scheduled 2013 Lipid panel (procedure) [facility] Test 00:00:00 [code = 94138073] Medical Ce nter Future Scheduled 2013 Lipid panel (procedure) [facility] Test 00:00:00 [code = 60165589] Medical Ce nter Future Scheduled 2013 Lipid panel (procedure) [facility] Test 00:00:00 [code = 47305254] Medical Ce nter Future Scheduled 2011 HEPATITIS [...] screening Medical Cent er (procedure) [code = 450140016] Future Scheduled [address] [facility] 00:00:00 virus screening Medical Cent er (procedure) [code = 806228703] Future Scheduled [address] [facility] 00:00:00 virus screening Medical Cent er (procedure) [code = 109587697] Future Scheduled [address] [facility] Test 00:00:00 Counseling and Screening Med [facility] (12+) [code = Tobacco Cessation Counseling and Screening (12+)] Future Scheduled [address] [facility] Test 00:00:00 Counseling and Screening Med ical Center (12+) [code = Tobacco Cessation Counseling and Screening (12+)] Future Scheduled [address] [facility] Test 00:00:00 Counseling and Screening [facility] (12+) [code = Tobacco Cessation Counseling and Screening (12+)] Goal Plan of Care Note [code = 49161-3] Goal Plan of Care Note [code = 73514-3] Goal Plan of Care Note [code = 93731-3] Goal Plan of Care Note [code = 39042-0] Goal Plan of Care Note [code = 70192-6] Goal Plan of Care Note [code = 83862-7] Goal Plan of Care Note [code = 94793-2] Goal Plan of Care Note [code = 99786-6] Goal Plan of Care Note [code = 19262-8] Goal Plan of Care Note [code = 65574-2] Goal Plan of Care Note [code = 79498-1] Goal Plan of Care Note [code = 62489-9] Goal Plan of Care Note [code = 10178-5] Goal Plan of Care Note [code = 48622-2] Goal Plan of Care Note [code = 65637-1] Goal Plan of Care Note [code = 67898-3] Goal Plan of Care Note [code = 80230-8] Goal Plan of Care Note [code = 49849-5] Goal Plan of Care Note [code = 53381-0] Goal Plan of Care Note [code = 15107-2] Goal Plan of Care Note [code = 34924-6] Goal Plan of Care Note [code = 32469-7] Goal Plan of Care Note [code = 79964-0] Goal Plan of Care Note [code = 28448-6] Goal Plan of Care Note [code = 87234-8] Goal Plan of Care Note [code = 69730-7] Goal Plan of Care Note [code = 96523-5] Goal Plan of Care Note [code = 81691-2] Goal Plan of Care Note [code = 89664-1] Goal Plan of Care Note [code = 56608-8] Goal Plan of Care Note [code = 12518-6] Goal Plan of Care Note [code = 01939-6] Goal Plan of Care Note [code = 64634-3] Goal Plan of Care Note [code = 71393-2] Goal Plan of Care Note [code = 39853-4] Goal Plan of Care Note [code = 60517-0] Goal Plan of Care Note [code = 58578-3] Goal Plan of Care Note [code = 06613-5] Goal Plan of Care Note [code = 74099-8] Goal Plan of Care Note [code = 92472-6] Goal Plan of Care Note [code = 95107-8] Goal Plan of Care Note [code = 21062-5] Goal Plan of Care Note [code = 56291-8] Goal Plan of Care Note [code = 28517-7] Goal Plan of Care Note [code = 04706-0] Goal Plan of Care Note [code = 69281-2] Goal Plan of Care Note [code = 45069-6] Goal Plan of Care Note [code = 82148-3] Goal Plan of Care Note [code = 34363-0] Goal Plan of Care Note [code = 29295-2] Goal Plan of Care Note [code = 00147-4] Goal Plan of Care Note [code = 00268-0] Goal Plan of Care Note [code = 77827-4] Goal Plan of Care Note [code = 18676-5] Goal Plan of Care Note [code = 54250-2] Goal Plan of Care Note [code = 67630-8] Goal Plan of Care Note [code = 57662-4] Goal Plan of Care Note [code = 50831-1] Goal Plan of Care Note [code = 07589-6] Goal Plan of Care Note [code = 21221-1] Goal Plan of Care Note [code = 42788-7] Goal Plan of Care Note [code = 56125-9] Goal Plan of Care Note [code = 65563-3] Goal Plan of Care Note [code = 32138-0] Goal Plan of Care Note [code = 86536-4] Goal Plan of Care Note [code = 77238-0] Goal Plan of Care Note [code = 05329-9] Goal Plan of Care Note [code = 94168-3] Goal Plan of Care Note [code = 90123-6] Goal Plan of Care Note [code = 16125-3] Goal Plan of Care Note [code = 83592-8] Goal Plan of Care Note [code = 59250-1] Goal Plan of Care Note [code = 04014-9] Goal Plan of Care Note [code = 55844-6] Goal Plan of Care Note [code = 72006-4] Goal Plan of Care Note [code = 44748-2] Goal Plan of Care Note [code = 18347-1] Goal Plan of Care Note [code = 60662-9] Goal Plan of Care Note [code = 56586-4] Goal Plan of Care Note [code = 80139-6] Goal Plan of Care Note [code = 05459-2] Goal Plan of Care Note [code = 08685-5] Goal Plan of Care Note [code = 16669-3] Goal Plan of Care Note [code = 51689-2] Goal Plan of Care Note [code = 83611-8] Goal Plan of Care Note [code = 44286-1] Goal Plan of Care Note [code = 13357-2] Goal Plan of Care Note [code = 33022-7] Goal Plan of Care Note [code = 76252-4] Goal Plan of Care Note [code = 02400-2] Goal Plan of Care Note [code = 36264-7] Goal Plan of Care Note [code = 73020-8] Goal Plan of Care Note [code = 13629-3] Goal Plan of Care Note [code = 45332-3] Goal Plan of Care Note [code = 54117-4] Goal Plan of Care Note [code = 19500-0] Goal Plan of Care Note [code = 68166-7] Goal Plan of Care Note [code = 08922-0] Goal Plan of Care Note [code = 94603-1] Goal Plan of Care Note [code = 10663-5] Goal Plan of Care Note [code = 04937-7] Goal Plan of Care Note [code = 86888-5] Goal Plan of Care Note [code = 34430-2] Goal Plan of Care Note [code = 32891-3] Goal Plan of Care Note [code = 34758-7] Goal Plan of Care Note [code = 10841-0] Goal Plan of Care Note [code = 90600-5] Goal Plan of Care Note [code = 42977-5] Goal Plan of Care Note [code = 69319-7] Encounters Start End Encounter Admission Attending Care Care Encounter Source Date/Time Date/Time Type Type Clinicians Facility Department ID 2023-11-17 2023-11-17 Outpatient NAVA JELENA KNIGHT [id number] Jelena 09:00:00 09:00:00 DARLIN Seybo ld 2023-08-17 2023-08-17 Outpatient DORA WINN JELENA KNIGHT [id number] Jelena 10:45:00 10:45:00 Seybol d 2023-08-12 2023-08-12 Outpatient JELENA KNIGHT [id number] Jelena 11:30:00 11:30:00 Seybol d 2023-08-12 2023-08-12 Outpatient ABY JELENA KNIGHT [id number] Jelena 10:30:00 10:30:00 SHIRLEY Seyb old 2023-08-10 2023-08-10 Outpatient JELENA KNIGHT [id number] Jelena 11:30:00 11:30:00 Seybol d 2023-08-10 2023-08-10 Outpatient JELENA WISDOM [id number] Jelena 11:00:00 11:00:00 SANDRA Seybol d 2023-07-14 2023-07-14 Outpatient RUSSELL KNIGHT [id number] Jelena 00:00:00 00:00:00 MD ANKITA Seybol d 2023-07-10 2023-07-10 Outpatient KANDI GROSS JELENA KNIGHT [id number] Jelena 11:30:00 11:30:00 Seybol d 2023-07-10 2023-07-10 Outpatient JELENA KIMBALL [id number] Jelena 10:00:00 10:00:00 LEI Seybo ld 2023-07-10 2023-07-10 Outpatient LAB90 JELENA KNIGHT [id number] Jelena 09:40:00 09:40:00 Seybol d 2023-07-10 2023-07-10 Outpatient JELENA KIMBALL [id number] Jelena 00:00:00 00:00:00 LEI Seybo ld 2023-07-09 2023-07-09 Outpatient JELENA GARY [id number] Jelena 00:00:00 00:00:00 ROBYN Seybol d 2023-07-03 2023-07-03 Outpatient COOKIE JELENA KNIGHT [id number] Jelena 00:00:00 00:00:00 ROBYN Seybol d 2023-07-02 2023-07-02 Outpatient JELENA GARY JELENA [id number] Jelena 08:00:00 08:00:00 ROBYN Seybol d 2023-07-02 2023-07-02 Outpatient REYNOLD GARYLIT KNIGHT [id number] Jelena 00:00:00 00:00:00 ROBYN Seybol d 2023-07-01 2023-07-01 Outpatient JELENA KNIGHT [id number] Jelena 12:35:00 12:35:00 Seybol d 2023-07-01 2023-07-01 Outpatient CATANNETTE JELENA KNIGHT [id number] Jelena 11:45:00 11:45:00 LEI Eatono ld 2023-06-30 2023-06-30 Outpatient FARIDAJessica JELENA KNIGHT [id number] Jelena 13:00:00 13:00:00 ROBYN Seybol d 2023-06-30 2023-06-30 Outpatient DORA WINN JELENA KNIGHT [id number] Jelena 00:00:00 00:00:00 Seybol d 2023-06-29 2023-06-29 Outpatient REYNOLD GARYLIT KNIGHT [id number] Jelena 00:00:00 00:00:00 ROBYN Seybol d 2023-06-27 2023-06-27 Outpatient ORNELAS JELENA KNIGHT [id number] Jelena 00:00:00 00:00:00 JUVENCIO Eatono ld 2023-06-26 2023-06-26 Emergency X DENNIS HUTCHINSON ERT [id number] Univers 11:06:00 13:33:00 SYLVESTER [facility] 2023-06-26 2023-06-26 Emergency DENNIS Hutchinson [id number] Univers 11:06:00 13:33:00 Sylvester Umaña TORNILLO [id number] i ty [facility] [id number] [facility] [id number] [address] 2023-06-25 2023-06-25 Outpatient FARIDAJessica JELENA KNIGHT [id number] Jelena 00:00:00 00:00:00 ROBYN Seybol d 2023-06-19 2023-06-19 Outpatient PREJELENA ALVA [id number] Jelena 00:00:00 00:00:00 BYRON Seybol d 2023-06-19 2023-06-19 Outpatient PREJELENA ALVA [id number] Jelena 00:00:00 00:00:00 BYRON Seybol d 2023-06-18 2023-06-18 Outpatient JELENA BRIONES [id number] Jelena 00:00:00 00:00:00 AHMED Seybol d 2023-06-07 2023-06-07 Outpatient JELENA GARY [id number] Jelena 00:00:00 00:00:00 ROBYN Seybol d 2023-06-02 2023-06-02 Outpatient JELENA GARY [id number] Jelena 00:00:00 00:00:00 ROBYN Seybol d 2023-06-01 2023-06-01 Outpatient MYKELSEYONL JELENA KNIGHT [id number] Jelena 00:00:00 00:00:00 MD ANKITA Seybol d 2023-06-01 2023-06-01 Outpatient JELENA GARY [id number] Jelena 00:00:00 00:00:00 ROBYN Seybol d 2023-05-28 2023-05-28 Outpatient HHI000 JELENA KNIGHT [id number] Jelena 11:45:00 11:45:00 Seybol d 2023-05-28 2023-05-28 Outpatient DORA WINN [id number] Jelena 10:45:00 10:45:00 Seybol d 2023-05-20 2023-05-20 Outpatient JELENA BRIONES [id number] Jelena 00:00:00 00:00:00 AHMED Seybol d 2023-05-17 2023-05-17 Outpatient JELENA GARY [id number] Jelena 00:00:00 00:00:00 ROBYN Seybol d 2023-05-15 2023-05-15 Outpatient SCHMIDT, JELENA KNIGHT [id number] Jelena 00:00:00 00:00:00 JONN Seybol d 2023-05-14 2023-05-14 Outpatient ANGELOJELENA GRAF [id number] Jelena 10:15:00 10:15:00 LUKE Seybol d 2023-05-14 2023-05-14 Outpatient JELENA GARY [id number] Jelena 00:00:00 00:00:00 ROBYN Seybol d 2023-05-13 2023-05-13 Outpatient ANGELOJELENA [id number] Jelena 10:15:00 10:15:00 LUKE Seybol d 2023-05-13 2023-05-13 Outpatient PREJELENA ALVA [id number] Jelena 00:00:00 00:00:00 BYRON Seybol d 2023-05-12 2023-05-12 Outpatient GAURAV PURVIS [id number] Jelena 00:00:00 00:00:00 Seybol d 2023-05-12 2023-05-12 Outpatient JELENA GARY [id number] Jelena 00:00:00 00:00:00 ROBYN Seybol d 2023-05-11 2023-05-11 Outpatient JELENA GARY [id number] Jelena 09:00:00 09:00:00 ROBYN Seybol d 2023-05-06 2023-05-06 Outpatient LAB90 JELENA KNIGHT [id number] Jelena 11:20:00 11:20:00 Seybol d 2023-05-06 2023-05-06 Outpatient JELENA GARY [id number] Jelena 10:30:00 10:30:00 ROBYN Seybol d 2023-05-01 2023-05-01 Outpatient JELENA GARY [id number] Jelena 00:00:00 00:00:00 ROBYN Seybol d 2023-04-28 2023-04-28 Outpatient JELENA VICK [id number] Jelena 09:00:00 09:00:00 DARLIN ybo ld 2023-04-26 2023-04-26 Outpatient JELENA GARY [id number] Jelena 00:00:00 00:00:00 ROBYN Seybol d 2023-04-24 2023-04-24 Outpatient GAURAV PURVIS [id number] Jelena 09:00:00 09:00:00 Seybol d 2023-04-23 2023-04-23 Outpatient STEPHANIELITLORETTAJessica KNIGHT [id number] Jelena 00:00:00 00:00:00 MD ANKITA Seybol d 2023-04-20 2023-04-20 Outpatient GAURAV PURVIS [id number] Jelena 10:30:00 10:30:00 Seybol d 2023-04-20 2023-04-20 Outpatient JELENA BRIONES [id number] Jelena 00:00:00 00:00:00 AHMED Seybol d 2023-04-17 2023-04-17 Outpatient JELENA NEVAREZ [id number] Jelena 00:00:00 00:00:00 ANGELICA Eatono ld 2023-04-17 2023-04-17 Outpatient JELENA GARY [id number] Jelena 00:00:00 00:00:00 ROBYN Seybol d 2023-04-16 2023-04-16 [facility] Emergency [id number] [facility] 10:54:00 15:04:00 CASCADE 2023-04-16 2023-04-16 Emergency [place], [facility] [id number] 10:54:00 15:04:00 [facility] 2023-04-16 2023-04-16 [facility] [id number] 10:54:00 15:04:00 [facility] 2023-04-16 2023-04-16 Emergency ER [place], [facility] SLS [id number] SLS 12:07:04 12:07:04 CASCADE 2023-04-16 2023-04-16 Outpatient JELENA STOKES [id number] Jelena 10:30:00 10:30:00 SPENSER Seybol d 2023-04-16 2023-04-16 Outpatient JELENA WANG [id number] Jelena 00:00:00 00:00:00 KELSEY Seybol d 2023-04-13 2023-04-13 Outpatient GAURAV PURVIS [id number] Jelena 10:30:00 10:30:00 Seybol d 2023-03-25 2023-03-25 Outpatient GAURAV PURVIS [id number] Jelena 00:00:00 00:00:00 Seybol d 2023-03-23 2023-03-23 Outpatient GAURAV PURVIS [id number] Jelena 10:30:00 10:30:00 Seybol d 2023-03-19 2023-03-19 Outpatient JELENA GARY [id number] Jelena 00:00:00 00:00:00 ROBYN Seybol d 2023-03-18 2023-03-18 Outpatient JELENA MALHOTRA [id number] Jelena 00:00:00 00:00:00 BYRON Seybol d 2023-03-17 2023-03-17 Outpatient RUSSELL KNIGHT [id number] Jelena 00:00:00 00:00:00 MD ANKITA Seybol d 2023-03-16 2023-03-16 Outpatient JELENA GARY [id number] Jelena 00:00:00 00:00:00 ROBYN Seybol d 2023-03-11 2023-03-11 Outpatient JELENA BRIONES [id number] Jelena 11:15:00 11:15:00 AHMED Seybol d 2023-03-09 2023-03-09 Outpatient JELENA GARY [id number] Jelena 00:00:00 00:00:00 ROBYN Seybol d 2023-03-05 2023-03-05 Outpatient JELENA BRIONES [id number] Jelena 00:00:00 00:00:00 AHMED Seybol d 2023-03-02 2023-03-02 Outpatient FARIDAL, JELENA KNIGHT [id number] Jelena 00:00:00 00:00:00 ROBYN Seybol d 2023-02-20 2023-02-20 Outpatient HUNDL, JELENA KNIGHT [id number] Jelena 00:00:00 00:00:00 ROBYN Seybol d 2023-02-20 2023-02-20 Outpatient HUNDL JELENA KNIGHT [id number] Jelena 00:00:00 00:00:00 ROBYN Seybol d 2023-02-19 2023-02-19 Outpatient PREZAS, JELENA KNIGHT [id number] Jelena 00:00:00 00:00:00 BYRON Seybol d 2023-02-18 2023-02-18 Outpatient HUNDJessica JELENA KNIGHT [id number] Jelena 11:00:00 11:00:00 ROBYN Seybol d 2023-02-16 2023-02-16 Outpatient FARIDAJessica JELENA KNIGHT [id number] Jelena 00:00:00 00:00:00 ROBYN Seybol d 2023-02-06 2023-02-06 Outpatient JELENA JOHN [id number] Jelena 00:00:00 00:00:00 SHANEIKA Seybo ld 2023-02-06 2023-02-06 Outpatient JELENA NEVAREZ [id number] Jelena 00:00:00 00:00:00 LASUNDRA Seybo ld 2023-02-05 2023-02-05 Outpatient LAB90 JELENA KNIGHT [id number] Jelena 09:10:00 09:10:00 Seybol d 2023-02-05 2023-02-05 Outpatient PREZAJELENA Umaña [id number] Jelena 00:00:00 00:00:00 BYRON Seybol d 2023-02-05 2023-02-05 Outpatient JELENA TREVIÑO [id number] Jelena 00:00:00 00:00:00 OLENA Seybol d 2023-02-02 2023-02-02 Outpatient JELENA STOKES [id number] Jelena 09:30:00 09:30:00 SPENSER Seybol d 2023-02-02 2023-02-02 Outpatient HUNDL, JELENA KNIGHT [id number] Jelena 00:00:00 00:00:00 ROBYN Seybol d 2023-02-02 2023-02-02 Outpatient HUNDL, JELENA KNIGHT [id number] Jelena 00:00:00 00:00:00 ROBYN Seybol d 2023-01-28 2023-01-28 Outpatient SEWMONSE, JELENA KNIGHT [id number] Jelena 11:00:00 11:00:00 AHMED Seybol d 2023-01-18 2023-01-18 Outpatient HUNDL, JELENA KNIGHT [id number] Jelena 00:00:00 00:00:00 ROBYN Seybol d 2023-01-17 2023-01-17 Outpatient PREZAS, JELENA KNIGHT [id number] Jelena 00:00:00 00:00:00 BYRON Seybol d 2023-01-14 2023-01-14 Outpatient HUNDL, JELENA KNIGHT [id number] Jelena 00:00:00 00:00:00 ROBYN Seybol d 2023-01-07 2023-01-07 Outpatient HUNDL, JELENA KNIGHT [id number] Jelena 00:00:00 00:00:00 ROBYN Seybol d 2023-01-06 2023-01-06 Outpatient KAWJAYROALYSSADANDRE KNIGHT [id number] Jelena 00:00:00 00:00:00 Seybol d 2023-01-06 2023-01-06 Outpatient HUNDL, JELENA KNIGHT [id number] Jelena 00:00:00 00:00:00 ROBYN Seybol d 2023-01-06 2023-01-06 Outpatient MERRILL, JELENA KNIGHT [id number] Jelena 00:00:00 00:00:00 JAROD Seybol d 2023-01-01 2023-01-01 Outpatient FARIDAL, JELENA KNIGHT [id number] Jelena 10:30:00 10:30:00 ROBYN Seybol d 2023-01-01 2023-01-01 Outpatient FARIDAL, JELENA KNIGHT [id number] Jelena 00:00:00 00:00:00 ROBYN Seybol d 2022-12-31 2022-12-31 Outpatient PLABPA JELENA KNIGHT [id number] Jelena 09:00:00 09:00:00 Seybol d 2022-12-30 2022-12-30 Outpatient COOKIE JELENA JELENA [id number] Jelena 10:30:00 10:30:00 ROBYN Seybol d 2022-12-29 2022-12-29 Outpatient LAB90 JELENA KNIGHT [id number] Jelena 11:20:00 11:20:00 Seybol d 2022-12-29 2022-12-29 Outpatient HUNDL, JELENA JELENA [id number] Jelena 10:30:00 10:30:00 ROBYN Seybol d 2022-12-29 2022-12-29 Outpatient HUNDL, JELENA KNIGHT [id number] Jelena 00:00:00 00:00:00 ROBYN Seybol d 2022-12-29 2022-12-29 Outpatient SEWIELAM JELENA KNIGHT [id number] Jelena 00:00:00 00:00:00 AHMED Seybol d 2022-12-26 2022-12-26 Outpatient PLABPA JELENA KNIGHT [id number] Jelena 09:00:00 09:00:00 Seybol d 2022-12-26 2022-12-26 Outpatient JELENA BYNUM [id number] Jelena 00:00:00 00:00:00 JENNIFER Seybol d 2022-12-26 2022-12-26 Outpatient PREZAJELENA Umaña [id number] Jelena 00:00:00 00:00:00 BYRON Seybol d 2022-12-25 2022-12-25 Outpatient GAURAV PURVIS [id number] Jelena 00:00:00 00:00:00 Seybol d 2022-12-24 2022-12-24 Outpatient PLABPA JELENA KNIGHT [id number] Jelena 11:30:00 11:30:00 Seybol d 2022-12-22 2022-12-22 Outpatient GAURAV PURVIS [id number] Jelena 09:00:00 09:00:00 Seybol d 2022-12-22 2022-12-22 Outpatient COOKIE JELENA KNIGHT [id number] Jelena 00:00:00 00:00:00 ROBYN Seybol d 2022-12-20 2022-12-20 Outpatient NANCY JELENA KNIGHT [id number] Jelena 00:00:00 00:00:00 JALYN Seybol d 2022-12-19 2022-12-19 Outpatient PREZAJELENA Umaña [id number] Jelena 00:00:00 00:00:00 BYRON Seybol d 2022-12-18 2022-12-18 Outpatient FARIDAL JELENA KNIGHT [id number] Jelena 00:00:00 00:00:00 ROBYN Seybol d 2022-12-18 2022-12-18 Outpatient COOKIE JELENA KNIGHT [id number] Jelena 00:00:00 00:00:00 ROBYN Seybol d 2022-12-15 2022-12-15 Outpatient BLANCAONJessica KNIGHT [id number] Jelena 00:00:00 00:00:00 MD ANKITA Seybol d 2022-12-15 2022-12-15 Outpatient JELENA MARTINEZ [id number] Jelena 00:00:00 00:00:00 MANOLO Seybol d 2022-12-15 2022-12-15 Outpatient JELENA GIVENS [id number] Jelena 00:00:00 00:00:00 GAUTAM Seybol d 2022-12-12 2022-12-12 Outpatient JELENA GIVENS [id number] Jelena 10:30:00 10:30:00 GAUTAM Seybol d 2022-12-12 2022-12-12 Outpatient JELENA KNIGHT [id number] Jelena 00:00:00 00:00:00 Seybol d 2022-12-12 2022-12-12 Outpatient JELENA MALHOTRA [id number] Jelena 00:00:00 00:00:00 BYRON Seybol d 2022-12-11 2022-12-11 Outpatient JELENA MALHOTRA [id number] Jelena 00:00:00 00:00:00 BYRON Seybol d 2022-12-08 2022-12-08 Outpatient MERRILL, JELENA KNIGHT [id number] Jelena 10:40:00 10:40:00 JAROD Seybol d 2022-12-08 2022-12-08 Outpatient JELENA KNIGHT [id number] Jelena 10:25:00 10:25:00 Seybol d 2022-12-08 2022-12-08 Outpatient KAWGAURAV DIAL JELENA KNIGHT [id number] Jelena 08:30:00 08:30:00 Seybol d 2022-12-08 2022-12-08 Outpatient HUNDL, JELENA KNIGHT [id number] Jelena 00:00:00 00:00:00 ROBYN Seybol d 2022-12-04 2022-12-04 Outpatient PREZAS, JELENA KNIGHT [id number] Jelena 00:00:00 00:00:00 BYRON Seybol d 2022-12-04 2022-12-04 Outpatient MERRILL, JELENA KNIGHT [id number] Jelena 00:00:00 00:00:00 JAROD Seybol d 2022-12-04 2022-12-04 Outpatient JELENA KNIGHT [id number] Jelena 00:00:00 00:00:00 Seybol d 2022-12-04 2022-12-04 Outpatient HUNDL, JELENA KNIGHT [id number] Jelena 00:00:00 00:00:00 ROBYN Seybol d 2022-12-01 2022-12-01 Outpatient HUNDL, JELENA KNIGHT [id number] Jelena 00:00:00 00:00:00 ROBYN Seybol d 2022-11-27 2022-11-[address], TECH JELENA KNIGHT [id number] Jelena 10:30:00 10:30:00 Seybol d 2022-11-27 2022-11-27 Outpatient MYKELSEYONL JELENA KNIGHT [id number] Jelena 00:00:00 00:00:00 MD ANKITA Seybol d 2022-11-27 2022-11-27 Outpatient MYKELSEYONL JELENA KNIGHT [id number] Jelena 00:00:00 00:00:00 MD ANKITA Seybol d 2022-11-21 2022-11-21 Outpatient JELENA GARY [id number] Jelena 00:00:00 00:00:00 ROBYN Seybol d 2022-11-20 2022-11-20 Outpatient [facility] [id number] Jarod 10:08:21 10:08:21 0323 F Lee 2022-11-19 2022-11-19 Outpatient COOKIE JELENA KNIGHT [id number] Jelena 00:00:00 00:00:00 ROBYN Seybol d 2022-11-14 2022-11-14 Outpatient COOKIE JELENA KNIGHT [id number] Jelena 00:00:00 00:00:00 ROBYN Seybol d 2022-11-14 2022-11-14 Outpatient JELENA KNIGHT [id number] Jelena 00:00:00 00:00:00 Seybol d 2022-11-11 2022-11-11 Outpatient JELENA GARY [id number] Jelena 00:00:00 00:00:00 ROBYN Seybol d 2022-11-07 2022-11-07 Outpatient JELENA VICK [id number] Jelena 00:00:00 00:00:00 DARLIN Seybo ld 2022-11-07 2022-11-07 Outpatient JELENA VICK [id number] Jelena 00:00:00 00:00:00 DARLIN Seybo ld 2022-11-07 2022-11-07 Outpatient JELENA VICK [id number] Jelena 00:00:00 00:00:00 DARLIN Seybo ld 2022-11-07 2022-11-07 Outpatient JELENA VICK [id number] Jelena 00:00:00 00:00:00 DARLIN Seybo ld 2022-11-07 2022-11-07 Outpatient JELENA GARY [id number] Jelena 00:00:00 00:00:00 ROBYN Seybol d 2022-11-07 2022-11-07 Outpatient JELENA GARY [id number] Jelena 00:00:00 00:00:00 ROBYN Seybol d 2022-11-07 2022-11-07 Outpatient FARIDAL JELENA KNIGHT [id number] Jelena 00:00:00 00:00:00 ROBYN Seybol d 2022-11-07 2022-11-07 Outpatient FARIDAL, JELENA KNIGHT [id number] Jelena 00:00:00 00:00:00 ROBYN Seybol d 2022-11-07 2022-11-07 Outpatient FARIDAL JELENA KNIGHT [id number] Jelena 00:00:00 00:00:00 ROBYN Seybol d 2022-11-07 2022-11-07 Outpatient FARIDAL JELENA KNIGHT [id number] Jelena 00:00:00 00:00:00 ROBYN Seybol d 2022-10-30 2022-10-30 Outpatient [facility] [id number] Jarod 08:26:44 08:26:44 0302 F Lee 2022-10-30 2022-10-30 Outpatient FARIDAJessica JELENA KNIGHT [id number] Jelena 00:00:00 00:00:00 ROBYN Seybol d 2022-10-29 2022-10-29 Outpatient FARIDAL JELENA KNIGHT [id number] Jelena 00:00:00 00:00:00 ROBYN Seybol d 2022-10-29 2022-10-29 Outpatient COOKIE JELENA KNIGHT [id number] Jelena 00:00:00 00:00:00 ROBYN Seybol d 2022-10-29 2022-10-29 Outpatient FARIDAJessica JELENA KNIGHT [id number] Jelena 00:00:00 00:00:00 ROBYN Seybol d 2022-10-29 2022-10-29 Outpatient JELENA VICK [id number] Jelena 00:00:00 00:00:00 DARLIN Guevaraybo ld 2022-10-28 2022-10-28 Outpatient LAB47 JELENA KNIGHT [id number] Jelena 09:45:00 09:45:00 Seybol d 2022-10-28 2022-10-28 Outpatient JELENA VICK [id number] Jelena 09:00:00 09:00:00 DARLIN Seybo ld 2022-10-23 2022-10-23 Outpatient COOKIE JELENA KNIGHT [id number] Jelena 00:00:00 00:00:00 ROBYN Seybol d 2022-10-22 2022-10-22 Outpatient FARIDALJELENA JELENA [id number] Jelena 08:00:00 08:00:00 ROBYN Seybol d 2022-10-13 2022-10-13 Outpatient [facility] [id number] Jarod 11:24:16 11:24:16 0213 F Lee 2022-10-10 2022-10-10 Outpatient LAB90 JELENA KNIGHT [id number] Jelena 09:25:00 09:25:00 Seybol d 2022-10-10 2022-10-10 Outpatient FARIDAL JELENA KNIGHT [id number] Jelena 08:30:00 08:30:00 ROBYN Seybol d 2022-10-10 2022-10-10 Outpatient HUNDL, JELENA KNIGHT [id number] Jelena 00:00:00 00:00:00 ROBYN Seybol d 2022-10-09 2022-10-09 Outpatient HUNDL, JELENA KNIGHT [id number] Jelena 08:30:00 08:30:00 ROBYN Seybol d 2022-10-09 2022-10-09 Outpatient HUNDL, JELENA KNIGHT [id number] Jelena 00:00:00 00:00:00 ROBYN Seybol d 2022-09-30 2022-09-30 Outpatient FARIDAL, JELENA KNIGHT [id number] Jelena 00:00:00 00:00:00 ROBYN Seybol d 2022-09-26 2022-09-26 Outpatient FARIDAL JELENA KNIGHT [id number] Jelena 00:00:00 00:00:00 ROBYN Seybol d 2022-09-24 2022-09-24 Outpatient LAB90 JELENA KNIGHT [id number] Jelena 17:05:00 17:05:00 Seybol d 2022-09-24 2022-09-24 Outpatient HUNDL, JELENA KNIGHT [id number] Jelena 11:00:00 11:00:00 ROBYN Seybol d 2022-09-22 2022-09-22 Outpatient SFA SFA [id number] Jarod 09:21:24 09:21:24 0123 F Lee 2022-09-22 2022-09-22 Outpatient JELENA GARY JELENA [id number] Jelena 00:00:00 00:00:00 ROBYN Seybol d 2022-09-17 2022-09-17 Outpatient JELENA GARY JELENA [id number] Jelena 00:00:00 00:00:00 ROBYN Seybol d 2022-09-12 2022-09-12 Outpatient JELENA GARY JELENA [id number] Jelena 00:00:00 00:00:00 ROBYN Seybol d 2022-09-11 2022-09-11 Outpatient COOKIE JELENA JELENA [id number] Jelena 00:00:00 00:00:00 ROBYN Seybol d 2022-09-10 2022-09-10 Outpatient SFA SFA [id number] Jarod 11:36:44 11:36:44 0111 F Lee 2022-09-10 2022-09-10 Outpatient [id number] 00:00:00 00:00:00 Visit 87da-47c3 7da-47c3-b -rz39-3p2 i99-1p9p3j [id number] 2022-09-09 2022-09-09 Outpatient LAB90 JELENA KNIGHT [id number] Jelena 09:30:00 09:30:00 Seybol d 2022-09-09 2022-09-09 Outpatient FARIDAJessica JELENA KNIGHT [id number] Jelena 08:30:00 08:30:00 ROBYN Seybol d 2022-09-09 2022-09-09 Outpatient COOKIE JELENA KNIGHT [id number] Jelena 00:00:00 00:00:00 ROBYN Seybol d 2022-09-04 2022-09-04 Outpatient SFA SFA [id number] Jarod 08:29:33 08:29:33 0105 F Lee 2022-09-04 2022-09-04 Outpatient [id number] 00:00:00 00:00:00 Visit 8sn7-3cq8 bd9-4ec7-b -bbc8-d95 bc8-d957ab [id number] 2022-08-28 2022-08-28 Outpatient AYESHA AYESHA [id number] Jarod 11:35:11 11:35:11 1229 F Lee 2022-08-28 2022-08-28 Outpatient [id number] 00:00:00 00:00:00 Visit 010b-47c2 10b-47c2-b -d4b0-w50 7l7-u036g6 [id number] [id number] 2022-05-24 2022-05-24 [facility] [id number] 15:15:00 18:38:00 2381-551e 81-551e-843 36 -843c-ca8 c-[id number] 5eb 2022-03-15 2022-03-15 Outpatient REXREEN_[facility] 761 [place] 10:56:00 10:56:00 HANA 0716 da [facility] 2020-11-29 2020-11-29 Outpatient Gr[facility] [id number] Univers 15:30:00 15:30:00 ANNEMARIE magaña [facility] 2020-10-23 2020-10-23 Telephone Alexandre Delgado 1.2.840.114 [id number] [facility] 00:00:00 00:00:00 [facility] 350.1.13.10 it [place] [id number] [address] 2020-10-23 2020-10-23 Telephone Alexandre Delgado 1.2.840.114 [id number] 00:00:00 00:00:00 [facility] 350.1.13.10 HEALTH 4.2.7.2.686 UNIT [id number] [facility] 2020-10-12 2020-10-12 Outpatient [facility] [id number] Univers 09:00:00 09:00:00 SHEY ity of [facility] 2020-09-27 2020-09-27 Orders Doctor CONNER 1.2.840.114 [id number] Univers 00:00:00 00:00:00 Only Unassigned, [place] 350.1.13.10 ity of [place] [facility] 4.2.7.2.686 Marvel as [id number] [address] 2020-09-27 2020-09-27 Orders Doctor CONNER 1.2.840.114 [id number] 00:00:00 00:00:00 Only Unassigned, [place] 350.1.13.10 [facility] 4.2.7.2.686 [id number] [facility] 2020-09-20 2020-09-20 Telephone [facility] 1.2.840.114 [id number] Univers 00:00:00 00:00:00 Shey Cabral 350.1.13.10 it y of Surgical 4.2.7.2.686 Marvel as Specialti [id number] Nm dical es 198 [facility] 2020-09-20 2020-09-20 Telephone [facility] 1.2.840.114 [id number] 00:00:00 00:00:00 Shey Cabral 350.1.13.10 Surgical 4.2.7.2.686 Specialti [id number] es 198 [place] 2020-09-07 2020-09-07 Office [facility] 1.2.009.763 [id number] Univers 09:03:53 09:52:26 Visit Shey Cabral 350.1.13.10 it y of Surgical 4.2.7.2.686 Marvel as Specialti [id number] Me dical es 198 [facility] 2020-09-07 2020-09-07 Office [facility] 1.2.740.202 [id number] 09:03:53 09:52:26 Visit Shey Cabral 350.1.13.10 Surgical 4.2.7.2.686 Specialti [id number] es 198 [place] 2020-09-07 2020-09-07 Outpatient R TASH [facility] [id number] Univers 09:00:00 09:00:00 [facility] 2020-08-30 2020-08-30 Outpatient R TASH [facility] [id number] Univers 08:30:00 08:30:00 [facility] 2020-08-20 2020-08-20 [facility] 1.2.840.114 [id number] Univers 10:11:58 23:59:00 Encounter Health 350.1.13.10 [place] [id number] [facility] [address] ([facility] 2020-08-20 2020-08-20 Outpatient R SANDY [facility] [id number] Univers 10:11:58 23:59:00 ity [facility] 2020-08-16 2020-08-16 Refgreg [facility] 1.2.840.114 [id number] Univers 00:00:00 00:00:00 [facility] 350.1.13.10 it y of [place] 4.2.7.2.686 Marvel as Professio [id number] [address] Office Building One 2020-08-02 2020-08-02 Office Care, Ang Primary B[place] 1.2.840 .114 [id number] Univers 10:40:31 12:20:58 Visit Alexandre Delgado [facility] 350.1.13.10 ity [place] [id number] [facility] [address] 2020-08-02 2020-08-02 Outpatient R SANDY [facility] [id number] Univers 10:30:00 10:30:00 ity of [facility] 2020-08-02 2020-08-02 Orders Doctor CONNER 1.2.840.114 [id number] Univers 00:00:00 00:00:00 Only Unassigned, [place] 350.1.13.10 ity [place] [facility] 4.2.7.2.686 Marvel as [id number] [facility] [address] 2020-05-31 2020-05-31 [facility] [id number] Univers 08:50:00 08:50:00 [facility] 2020-[facility] 2020-05-24 Outpatient R ALEXANDRE DELGADO [facility] [id number] Univers 00:00:00 00:00:00 ity [facility] 2020-05-22 2020-05-22 Outpatient R BRIANDA [facility] [id number] Univers 09:50:00 09:50:00 ILIANA [facility] 2020-05-17 2020-05-21 Office Care, Ang Primary ROSY 1.2.840 .114 [id number] Univers 11:05:31 09:49:52 Visit Alexandre Delgado [facility] 350.1.13.10 it[place] [id number] [address] 2020-05-21 2020-05-21 Outpatient Gracia DELGADO [facility] [id number] Univers 00:00:00 00:00:00 ity [facility] 2020-05-17 2020-05-17 Outpatient R SANDY [facility] [id number] Univers 10:30:00 10:30:00 ity [facility] 2020-05-17 2020-05-17 Orders Doctor CONNER 1.2.840.114 [id number] Univers 00:00:00 00:00:00 Only Unassigned, [place] 350.1.13.10 ity of [place] [facility] 4.2.7.2.686 Marvel as [id number] [address] 2020-05-08 2020-05-08 Outpatient R DAJUAN [facility] [id number] Univers 08:30:00 08:30:00 ANNEMARIE magaña [facility] 2020-05-08 2020-05-08 Telemedici [facility] 1.2.840.114 [id number] Univers 07:05:41 07:35:41 ne Visit Annemarie AVILES 350.1.13.10 it[place] AT [id number] Nm suman BYRD 072 [facility] 2020-05-01 2020-05-01 Outpatient Gracia [facility] [id number] Univers 09:30:00 09:30:00 ANNEMARIE magaña [facility] 2020-04-24 2020-04-24 Outpatient R DAJUAN [facility] [id number] Univers 09:30:00 09:30:00 ANNEMARIE pavithra latoya magaña [facility] 2020-03-08 2020-03-20 Office Care, Ang Primary ROSY 1.2.840 .114 [id number] Univers 10:02:59 09:15:53 Visit [place] Valley[place] [facility] 350.1.13.10 it[place] [id number] [facility] [address] 2020-03-16 2020-03-16 Hospital Alexandre Delgado [facility] 1.2.840.114 [id number] Univers 07:51:00 23:59:00 Encounter [place] 350.1.13.10 ity of [place] [id number] [facility] [address] 2020-03-16 2020-03-16 Outpatient R BETHANY DELGADOCY [facility] [id number] Univers 00:00:00 00:00:00 ity of [facility] 2020-03-13 2020-03-13 Telephone Alexandre Delgado ROSY 1.2.840.114 [id number] Univers 00:00:00 00:00:00 [facility] 350.1.13.10 it y [place] [id number] [address] 2020-03-08 2020-03-08 Outpatient R BETHANY DELGADOCY [facility] [id number] Univers 10:00:00 10:00:00 ity of [facility] 2020-03-08 2020-03-08 Orders Doctor CONNER 1.2.840.114 [id number] Univers 00:00:00 00:00:00 Only Unassigned, [place] 350.1.13.10 ity of [place] [facility] 4.2.7.2.686 Marvel [id number] [facility] [address] 2020-02-29 2020-02-29 Telephone Alexandre Delgado ROSY 1.2.840.114 [id number] Univers 00:00:00 00:00:00 [facility] 350.1.13.10 it y [place] [id number] [address] 2020-02-14 2020-02-14 Telephone [facility] 1.2.253.210 [id number] Univers 00:00:00 00:00:00 Dannie Cerdaton 350.1.13.10 ity of [place] Profess[place] [id number] [address] 2020-02-10 2020-02-10 Outpatient R [facility] [id number] Univers 09:00:00 09:00:00 ity of [facility] 2020-02-10 2020-02-10 Orders Doctor CONNER 1.2.840.114 [id number] Univers 00:00:00 00:00:00 Only Unassigned, [place] 350.1.13.10 ity of [place] [facility] 4.2.7.2.686 Marvel as [id number] [address] 2020-01-24 2020-01-24 Outpatient R [facility] [id number] Univers 10:40:00 10:40:00 DANNIE ity o f [facility] 2020-01-24 2020-01-24 Telemedici [facility] 1.2.840.114 [id number] Univers 07:57:10 08:17:10 ne Visit Dannie [place] 350.1.13.10 ity of [place] [id number] [address] 2020-01-18 2020-01-18 Outpatient R [facility] [id number] Univers 13:00:00 13:00:00 ity of [facility] 2019-11-10 2019-11-10 Telephone Alexandre Delgado 1.2.840.114 [id number] Univers 00:00:00 00:00:00 [facility] 350.1.13.10 it y [place] [id number] [address] 2019-11-03 2019-11-03 Outpatient R ALEXANDRE DELGADO [facility] [id number] Univers 08:15:00 08:15:00 ity of [facility] 2019-10-25 2019-10-25 Office [facility] 1.2.840.114 [id number] Univers 08:48:06 09:27:18 Visit Annemarie [place]IL[place] 350.1.13.10 ity of [place]2.[place] AT [id number] Nm dical [place]CTORY 072 [facility] 2019-10-25 2019-10-25 [facility] [id number] Univers 09:00:00 09:00:00 ANNEMARIEDANIS arshad o f [facility] 2019-10-24 2019-10-24 Office [facility] 1.2.840.114 [id number] Univers 10:57:17 15:44:20 Visit Dannie Gaspar 350.1.13.10 ity [facility] [place].2.7.2.[place] [id number] Nm dical nal 059 [facility] 2019-10-24 2019-10-24 Outpatient R FER [facility] [id number] Univers 11:00:00 11:00:00 DANNIE pavithra o gómez [facility] 2019-09-29 2019-09-29 Office Care, Aries [place] 1.2.840 .114 [id number] Univers 10:38:08 11:16:42 Visit Alexandre Delgado [facility] 350.1.13.10 ity of [place] [id number] [address] 2019-09-29 2019-09-29 Outpatient R ALEXANDRE DELGADO [facility] [id number] Univers 10:00:00 11:16:42 ity of [facility] 2019-09-14 2019-09-14 Telephone Alexandre Delgado ROSY 1.2.840.114 [id number] Univers 00:00:00 00:00:00 [facility] 350.1.13.10 it [place] [id number] [address] 2019-09-08 2019-09-08 Orders Doctor PRIETO 1.2.840.114 [id number] Univers 00:00:00 00:00:00 Only Unassigned, [place] 350.1.13.10 ity of [place] [facility] 4.2.7.2.686 Marvel as [id number] [facility] [address] 2019-05-05 2019-05-05 Telephone Alexandre Delgado 1.2.840.114 [id number] [facility] 00:00:00 00:00:00 [facility] 350.1.13.10 it y of [place] [id number] [place] [address] [address] 2019-04-28 2019-04-28 Office Care, Aries Bob ROSY 1.2.840 .114 [id number] Univers 09:26:40 11:38:19 Visit Alexandre Delgado [facility] 350.1.13.10 ity of [place] [id number] [place] [address] [address] 2019-04-28 2019-04-28 Orders Doctor CONNER 1.2.840.[id number] [place] [address] 00:00:00 00:00:00 Only Unassigned, [place] 350.1.13.10 ity of [facility] 4.2.7.2.686 [place] as [phone] [address] Results Test Description Test Time Test Comments Results Result Comments Source COMP. METABOLIC PANEL (10412) 2023-06-26 17:34:22 Test Item Value Reference Range Interpretation Comme nts NA (test code = 7388031716) 141 mmol/L 135-145 K (test code = 4361877222) 3.6 mmol/L 3.5-5.0 CL (test code = 7459655900) 109 mmol/L 98-108 H CO2 TOTAL (test code = 5621390538) 17 mmol/L 23-31 L AGAP (test code = 0194778525) 15 2-16 BUN (test code = 4073968955) 6 mg/dL 7-23 L GLUCOSE (test code = 3615652649) 85 mg/dL 70-110 CREATININE (test code = 0.67 mg/dL 0.50-1.04 1087376255) TOTAL BILI (test code = 0.6 mg/dL 0.1-1.7 8562211691) CALCIUM (test code = 6596928488) 9.7 mg/dL 8.6-10.6 T PROTEIN (test code = 6531753261) 8.8 g/dL 6.3-8.2 H ALBUMIN (test code = 7383352070) 4.5 g/dL 3.5-5.0 ALK PHOS (test code = 1786618991) 65 U/L 34-122 ALTv (test code = 1742-6) 14 U/L 5-35 AST(SGOT) (test code = 4948680152) 20 U/L 13-40 eGFR (test code = 8616000372) 103.3 mL/min/1.73m2 INES (test code = INES) [...] tests). Lab Interpretation (test code = Abnormal 40175-5) [facility] WITH [id number] 17:15:57 Test Item Value Reference Range Interpretation Comments WBC (test code = 6.77 See_Comment [Automated message] 7990-2) The system [employer] generated this result transmitted ref erence range: 4.30 - 1 1.10 10*3/?L. The re ference range was not u sed to interpret this result as normal/abnor mal. RBC (test code = 4.71 See_Comment [Automated message] 789-8) The system [employer] generated this result transmitted ref erence range: [...] RDW-SD (test code 39.8 fL 39.0-49.9 = 21422-7) RDW-CV (test code 13.0 % 12.0-15.5 = 788-0) PLT (test code = 265 See_Comment [Automated message] 777-3) The system [employer] generated this result transmitted ref erence range: 166 - 35 8 10*3/?L. The re ference range was not u sed to interpret this result as normal/abnor mal. MPV (test code = 11.0 fL 9.5-12.9 87900-8) NRBC/100 WBC (test 0.0 See_Comment [Automat ed message] code = 7070907622) The [employer] which generated this result transmitted ref erence range: 0.0 - 10 .0 /100 WBCs. The refer ence range was not u sed to interpret this result as normal/abnor mal. NRBC x10^3 (test See_Comment [Automated message] code = 3781581645) The syste m which generated this result transmitted ref erence range: 10*3/?L. The reference range was not used to interpr et this result as normal/abnormal . GRAN MAT (NEUT) % 61.8 % (test code = 770-8) IMM GRAN % (test 0.30 % code = 9113305767) LYMPH % (test code 27.3 % = 736-9) MONO % (test code 5.8 % = 5905-5) EOS % (test code = 4.4 % 713-8) BASO % (test code 0.4 % = 706-2) GRAN MAT 4.18 10*3/uL 1.88-7.09 x10^3(ANC) (test code = 8855049103) IMM GRAN x10^3 0.00-0.06 (test code = 8542664109) LYMPH x10^3 (test 1.85 10*3/uL 1.32-3.29 code = 731-0) MONO x10^3 (test 0.39 10*3/uL 0.33-0.92 code = 742-7) EOS x10^3 (test 0.30 10*3/uL 0.03-0.39 code = 711-2) BASO x10^3 (test 0.03 10*3/uL 0.01-0.07 code = 704-7) [facility] [id number] 14:30:07 Test Item Value Reference Range Interpretation [...] = 762) CBC W/PLT COUNT & AUTO [id number] 14:30:06 Test Item Value Reference Range Interpretation [...] PERCENT (BEAKER) (test code = 2801) TROPONIN [id number] 14:12:53 Test Item Value Reference Range Interpretation [...] failure, acidosis, acute neurological disease, and persistent tachyarrhythmia.Webbing Inspector ID - DSENSONCOMPREHENSIVE METABOLIC [id number] 14:10:56 Test Item Value Reference Range Interpretation [...] not appl icable for dialysis patien ts Webbing Inspector ID - DSENSONOperator ID - DSENSONOperator ID - DSENSONOperator ID - DSENSONOperator ID - DSENSONOperator ID - DSENSONOperator ID - DSENSONOperator ID - DSENSONOperator ID - DSENSONOperator ID - DSENSONOperator ID - DSENSONOperator ID - DSENSONOperator ID - DSENSONOperator ID - DSENSONOperatorID - DSENSONOperator ID - DSENSONOperator ID - DSENSONOperator ID - DSENSONOperator ID - DSENSONPROTHROMBIN TIME/[id number] 14:03:14 Test Item Value Reference Range Interpretation Comments PROTIME (BEAKER) 10.3 seconds 9.3-12.0 Final Infor mation (test code = 759) (Auto Outp ut) INR (ROJELIOAKER) (test 0.96 See_Comment Final Inf ormation code = 370) (Auto Output) [Automated mess age] The system [employer] generated this result transmitted ref erence range: <=5.90. The reference range was not used to int erpret this result as normal/abnormal . RECOMMENDED COUMADIN/WARFARIN INR THERAPY RANGESSTANDARD DOSE: 2.0 - 3.0 Includes: PROPHYLAXIS for venous thrombosis, systemic embolization; TREATMENT for venous thrombosis and/or pulmonary embolus.HIGH RISK: Target INR is 2.5-3.5 for patients with mechanical heart valves.CT BRAIN WITHOUT IV [id number] 12:52:28[facility] : 1995 Sex: FCT BRAIN [...] Signed By: Krystle Quiroz04/16/2023 12:54 CDTWorkstation Name: [id number] w/Microscopic + Reflex to Culture 2023-04-16 12:27:52 Test Item Value Reference Range Interpretation Comments Color, UA (test Yellow code = 5778-6) Clarity, UA (test Slightly Cloudy code = 5767-9) Specific [place], 1.001-1.035 UA (test code = 5811-5) pH, UA (test code = 6.0 5.0-8.0 5803-2) Protein, UA (test Negative Negative code = 18371-0) Glucose, UA (test Negative Negative code = 365) Ketones, UA (test Negative Negative code = 2514-8) Bilirubin, UA (test Negative Negative code = 96052-2) Blood, UA (test Negative Negative code = 35524-5) Nitrite, UA (test Negative Negative code = 5802-4) Leukocytes, UA Negative Negative (test code = 5799-2) Urobilinogen, UA 0.2 (test code = 62262-2) Bacteria, UA (test Few code = 29243-5) Mucus (test code = Few 8247-9) Ca Oxalate Lilly, UA Moderate (test code = 31811-1) RBC, UA (test code <5 See_Comment [Automat ed = 799-7) message] The sy stem which generated this result transmitted reference range : /HPF. The refer ence range was not u sed to interpret th is result as normal/abnormal . WBC, UA (test code <5 See_Comment [Automat ed = 69749-5) message] The sy stem which generated this result transmitted reference range : /HPF. The refer ence range was not u sed to interpret th is result as normal/abnormal . SQUAMOUS EPITHELIAL <5 See_Comment [Automa inge (test code = message] The sy stem 23217-2) which generated this result transmitted reference range : /HPF. The refer ence range was not u sed to interpret th is result as normal/abnormal . Specimen Source (test code = 2795) [facility] 2023-04-16 12:27:52 Test Item Value Reference Range Interpretation Comments Color, UA (test Yellow code = 5778-6) Clarity, UA (test Slightly Cloudy code = 5767-9) Specific [place], 1.001-1.035 UA (test code = 5811-5) pH, UA (test code = 6.0 5.0-8.0 5803-2) Protein, UA (test Negative Negative code = 91169-6) Glucose, UA (test Negative Negative code = 365) Ketones, UA (test Negative Negative code = 2514-8) Bilirubin, UA (test Negative Negative code = 11675-0) Blood, UA (test Negative Negative code = 25167-1) Nitrite, UA (test Negative Negative code = 5802-4) Leukocytes, UA Negative Negative (test code = 5799-2) Urobilinogen, UA 0.2 (test code = 25386-6) Bacteria, UA (test Few code = 24967-0) Mucus (test code = Few 8247-9) Ca Oxalate Lilly, UA Moderate (test code = 38832-6) RBC, UA (test code <5 See_Comment [Automat ed = 799-7) message] The sy stem which generated this result transmitted reference range : /HPF. The refer ence range was not u sed to interpret th is result as normal/abnormal . WBC, UA (test code <5 See_Comment [Automat ed = 89394-5) message] The sy stem which generated this result transmitted reference range : /HPF. The refer ence range was not u sed to interpret th is result as normal/abnormal . SQUAMOUS EPITHELIAL <5 See_Comment [Automa inge (test code = message] The sy stem 49062-6) which generated this result transmitted reference range : /HPF. The refer ence range was not u sed to interpret th is result as normal/abnormal . Specimen Source (test code = 2795) [facility] Reflex [facility] Culture 2023-04-16 12:27:52 Test Item Value Reference Range Interpretation Comments Color, UA (test Yellow code = 5778-6) Clarity, UA (test Slightly Cloudy code = 5767-9) Specific [place], 1.001-1.035 UA (test code = 5811-5) pH, UA (test code = 6.0 5.0-8.0 5803-2) Protein, UA (test Negative Negative code = 47853-0) Glucose, UA (test Negative Negative code = 365) Ketones, UA (test Negative Negative code = 2514-8) Bilirubin, UA (test Negative Negative code = 99238-1) Blood, UA (test Negative Negative code = 19075-4) Nitrite, UA (test Negative Negative code = 5802-4) Leukocytes, UA Negative Negative (test code = 5799-2) Urobilinogen, UA 0.2 (test code = 91917-5) Bacteria, UA (test Few code = 90602-4) Mucus (test code = Few 8247-9) Ca Oxalate Llily, UA Moderate (test code = 83043-5) RBC, UA (test code <5 See_Comment [Automat ed = 799-7) message] The sy stem which generated this result transmitted reference range : /HPF. The refer ence range was not u sed to interpret th is result as normal/abnormal . WBC, UA (test code <5 See_Comment [Automat ed = 66608-3) message] The sy stem which generated this result transmitted reference range : /HPF. The refer ence range was not u sed to interpret th is result as normal/abnormal . SQUAMOUS EPITHELIAL <5 See_Comment [Automa inge (test code = message] The sy stem 28151-0) which generated this result transmitted reference range : /HPF. The refer ence range was not u sed to interpret th is result as normal/abnormal . Specimen Source (test code = 2795) [facility]FLEX URINE [id number] 12:27:52 Test Item Value Reference Range Interpretation [...] (test code = 2795) Rapid drug screen, [id number] 12:19:24 Test Item Value Reference Range Interpretation Comments Barbiturate Screen Negative Negative (test code = 00615-4) Benzodiazepine Screen Positive Negative A (test code = 86299-5) Cocaine (Metab.) Negative Negative Screen (test code = 3397-7) Methadone Screen (test Negative Negative code = 83441-6) Opiate Screen (test Negative Negative code = 65332-6) Cannabinoid Screen Positive Negative A (test code = 83559-6) Amph/Methamph Screen Negative Negative (test code = 96822-0) Phencyclidine Screen Negative Negative (test code = 28212-5) pH, UA (test code = 6.0 5.0-8.0 5803-2) INES (test code = INES) DRUG CUTOFF CONC.Cocaine 300 ng/mL Cannabinoid 50 ng/mLBenzodiazepine 200 ng/mLBarbiturate 200 ng/mLPhencyclidine 25 ng/mLOpiate 300 ng/mLMethadone 300 ng/mLAmphetamine/ 1000 ng/mL Methamphetamine This assay provides an unconfirmed qualitative test result for the clinical management of patients in emergency situations. Chain of custody not maintained. Some lyqf-ngx-dlpudau medications, as well as adulterants, may cause inaccurate results. Clinical correlation should be applied. A more comprehensive drug screen or confirmation of a detected drug may be performed upon request.Webbing Inspector ID - DSENSONOperator ID - DSENSONOperator ID - DSENSONOperator ID - DSENSONOperator ID - DSENSONOperator ID - DSENSONOperator ID - DSENSONOperator ID - DSENSON Lab Interpretation Abnormal (test code = 09902-4) [facility], [id number] 12:19:24 Test Item Value Reference Range Interpretation Comments Barbiturate Screen Negative Negative (test code = 46447-9) Benzodiazepine Screen Positive Negative A (test code = 10996-7) Cocaine (Metab.) Negative Negative Screen (test code = 3397-7) Methadone Screen (test Negative Negative code = 18678-4) Opiate Screen (test Negative Negative code = 28312-3) Cannabinoid Screen Positive Negative A (test code = 80709-0) Amph/Methamph Screen Negative Negative (test code = 59992-9) Phencyclidine Screen Negative Negative (test code = 19486-2) pH, UA (test code = 6.0 5.0-8.0 5803-2) INES (test code = INES) DRUG CUTOFF CONC.Cocaine 300 ng/mL Cannabinoid 50 ng/mLBenzodiazepine 200 ng/mLBarbiturate 200 ng/mLPhencyclidine 25 ng/mLOpiate 300 ng/mLMethadone 300 ng/mLAmphetamine/ 1000 ng/mL Methamphetamine This assay provides an unconfirmed qualitative test result for the clinical management of patients in emergency situations. Chain of custody not maintained. Some jhzm-cgk-puglxlj medications, as well as adulterants, may cause inaccurate results. Clinical correlation should be applied. A more comprehensive drug screen or confirmation of a detected drug may be performed upon request.Webbing Inspector ID - DSENSONOperator ID - DSENSONOperator ID - DSENSONOperator ID - DSENSONOperator ID - DSENSONOperator ID - DSENSONOperator ID - DSENSONOperator ID - DSENSON Lab Interpretation Abnormal (test code = 29252-0) [facility], [id number] 12:19:24 Test Item Value Reference Range Interpretation Comments Barbiturate Screen Negative Negative (test code = 74913-2) Benzodiazepine Screen Positive Negative A (test code = 09455-3) Cocaine (Metab.) Negative Negative Screen (test code = 3397-7) Methadone Screen (test Negative Negative code = 85644-7) Opiate Screen (test Negative Negative code = 36234-7) Cannabinoid Screen Positive Negative A (test code = 94694-7) Amph/Methamph Screen Negative Negative (test code = 85774-6) Phencyclidine Screen Negative Negative (test code = 39868-3) pH, UA (test code = 6.0 5.0-8.0 5803-2) INES (test code = INES) DRUG CUTOFF CONC.Cocaine 300 ng/mL Cannabinoid 50 ng/mLBenzodiazepine 200 ng/mLBarbiturate 200 ng/mLPhencyclidine 25 ng/mLOpiate 300 ng/mLMethadone 300 ng/mLAmphetamine/ 1000 ng/mL Methamphetamine This assay provides an unconfirmed qualitative test result for the clinical management of patients in emergency situations. Chain of custody not maintained. Some fsig-kwi-buagqax medications, as well as adulterants, may cause inaccurate results. Clinical correlation should be applied. A more comprehensive drug screen or confirmation of a detected drug may be performed upon request.Webbing Inspector ID - DSENSONOperator ID - DSENSONOperator ID - DSENSONOperator ID - DSENSONOperator ID - DSENSONOperator ID - DSENSONOperator ID - DSENSONOperator ID - DSENSON Lab Interpretation Abnormal (test code = 65554-9) [facility]EN, [id number] 12:19:24 Test Item Value Reference Range Interpretation [...] situations. Chain of custody not maintained. Some gkju-lds-bvwlejr medications, as well as adulterants, may cause inaccurate results. Clinical correlation should be applied. A more comprehensive drug screen or confirmation of a detected drug may be performed upon request.Webbing Inspector ID - DSENSONOperator ID - DSENSONOperator ID - DSENSONOperator ID - DSENSONOperator ID - DSENSONOperator ID - DSENSONOperator ID - DSENSONOperator ID - DSENSONTSH, THIRD GENERATION 2022-09-11 04:08:38 Test Item Value Reference Range Interpretation Comments TSH, THIRD 2.060 UIU/ML 0.400-4.100 UNLESS OTHERWI SE GENERATION (test INDICATED, ALL TESTING code = 2820) PERFORMED [facility], [facility]. [address] [place], [place] [id number] [place] [address] DIRECTOR: AZ AGUIRRE M.D. CLIA NUMBER [id number] CAP ACCREDITATION N O. [id number] COMPREHENSIVE METABOLIC [id number] 03:23:31 Test Item Value Reference Range Interpretation Comments GLUCOSE (test code = 80 MG/DL 70-99 2216) BUN (test code = 7 MG/DL 6-20 2207) CREATININE (test 0.55 MG/DL 0.60-1.30 L code = 2214) eGFR (2020 CKD-EPI) 127 >60 (test code = 10789) ML/MIN/1.73 CALC BUN/CREAT (test 13 RATIO 6-28 code = 2235) SODIUM (test code = 138 MEQ/L 231-795 3116) POTASSIUM (test code 3.9 MEQ/L 3.5-5.4 = [...] U/L 5-40 2218) CBC W/AUTO DIFF WITH [id number] 02:00:05 Test Item Value Reference Range Interpretation [...] RBCS 0.00 K/UL 0.00-0.11 (test code = 99872) CT/NG, NAAT, [id number] 20:52:50 Test Item Value Reference Range Interpretation Comments GONORRHEA, NAAT NEGATIVE NEGATIVE Note: Testi ng is (test code = 28834) performe d with [employer] EDEL 6800/8800 systems using real-time polymerase cali n reaction (PCR) method. CHLAMYDIA, NAAT NEGATIVE NEGATIVE Note: Testi ng is (test code = 67446) performe d with [employer] E[employer] 6800/8800 systems using real-time polymerase cali n reaction (PCR) method. HEPATITIS PANEL, [id number] 05:02:20 Test Item Value Reference Range Interpretation Comments HEPATITIS A IgM (test NON-REACTIVE NON-REACTIVE code = 29954) HEPATITIS B CORE IgM NON-REACTIVE NON-REACTIVE (test code = 4644) HEPATITIS B SURF AG NON-REACTIVE NON-REACTIVE (test code = 2739) HEPATITIS C ANTIBODY NON-REACTIVE NON-REACTIVE (test code = 4675) INTERPRETATION (NOTE) Hepatitis A HEPATITIS A: (test code sero logy shows no = 2552) evidence of acu te hepatitis A. INTERPRETATION (NOTE) Hepatitis B HEPATITIS B: (test code sero logy shows no = 89871) evidence of acu te hepatitis B and no indication of exposure to hepatitis B vir us in the previous alejandra eight months. INTERPRETATION (NOTE) Hepatitis C HEPATITIS C: (test code sero logy shows no = 49932) evidence of exposure to hepatitisC viru s at this time. I t can take up to 12 months after exposure tothe hepatitis C vir us for antibodies to become detectab le in the blood in certain patient s. HIV 1/2 4TH GEN, RFLX [id number] 05:02:20 Test Item Value Reference Range Interpretation Comments HIV 1/2 4TH GEN, NON-REACTIVE NON-REACTIVE UNLESS OTH ERWISE RFLX CONF (test INDICATED, A LL TESTING code = 3514) PERFORMED [facility] PATHOLOG[facility]OR [email or web address] [address] [place] [address], [place] [address] [facility] DIRECTOR: AZ AGUIRRE M.D. CLIA NUMBER [id number] CAP ACCREDITATION N O. [id number] RPR REFLEX TO T. PALLIDUM - [id number] 04:28:08 Test Item Value Reference Range Interpretation Comments RPR (test code = 57879) NON-REACTIVE NON-REACTIVE RPR TITER (test code = 3500) NOT INDIC. TITER NOT INDIC. CT/NG, TMA, [id number] 00:00:00 Test Item Value Reference Range Interpretation Comments GONORRHEA, NAAT (test code = 76645) NEGATIVE CHLAMYDIA, NAAT (test code = 30065) NEGATIVE CT/NG, TMA, [id number] 00:00:00 Test Item Value Reference Range Interpretation Comments GONORRHEA, NAAT (test code = 95317) NEGATIVE CHLAMYDIA, NAAT (test code = 22026) NEGATIVE RPR REFLEX TO T. PALLIDUM - [id number] 00:00:00 Test Item Value Reference Range Interpretation Comments RPR (test code = 18707) NON-REACTIVE RPR TITER (test code = 3500) NOT INDIC. TITER RPR REFLEX TO T. PALLIDUM - [id number] 00:00:00 Test Item Value Reference Range Interpretation Comments RPR (test code = 06287) NON-REACTIVE RPR TITER (test code = 3500) NOT INDIC. TITER ACUTE HEPATITIS [id number] 00:00:00 Test Item Value Reference Range Interpretation Comments HEPATITIS A IgM (test code = NON-REACTIVE 19639) HEPATITIS B CORE IgM (test code NON-REACTIVE = 4644) HEPATITIS B SURF AG (test code = NON-REACTIVE 2739) HEPATITIS C ANTIBODY (test code NON-REACTIVE = 4675) INTERPRETATION HEPATITIS A: (NOTE) (test code = 2552) INTERPRETATION HEPATITIS B: (NOTE) (test code = 68912) INTERPRETATION HEPATITIS C: (NOTE) (test code = 16838) ACUTE HEPATITIS [id number] 00:00:00 Test Item Value Reference Range Interpretation Comments HEPATITIS A IgM (test code = NON-REACTIVE 56336) HEPATITIS B CORE IgM (test code NON-REACTIVE = 4644) HEPATITIS B SURF AG (test code = NON-REACTIVE 2739) HEPATITIS C ANTIBODY (test code NON-REACTIVE = 4675) INTERPRETATION HEPATITIS A: (NOTE) (test code = 2552) INTERPRETATION HEPATITIS B: (NOTE) (test code = 23680) INTERPRETATION HEPATITIS C: (NOTE) (test code = 55199) HIV 1/2 4TH GEN, RFLX [id number] 00:00:00 Test Item Value Reference Range Interpretation Comments HIV 1/2 4TH GEN, RFLX CONF (test NON-REACTIVE code = 3514) HIV 1/2 4TH GEN, RFLX [id number] 00:00:00 Test Item Value Reference Range Interpretation Comments HIV 1/2 4TH GEN, RFLX CONF (test NON-REACTIVE code = 3514) VITAMIN D, 25 [id number] 03:25:23 Test Item Value Reference Range Interpretation [...] ATED, ALL TESTING PERFORM ED ATCL[facility]ICAL PATH [facility] [place] [address] LAB[address]ORY DIRE CTOR: Rebeca COBB. CLIA NUMBER [id number] CAP ACCREDITATION N O. [id number] HIV 1/2 4TH GEN, RFLX [id number] 03:00:39 Test Item Value Reference Range Interpretation Comments HIV 1/2 4TH GEN, RFLX CONF (test NON-REACTIVE NON-REACTIVE code = 3514) HIV AB/AG COMBO RFLX [id number] 00:00:00 Test Item Value Reference Range Interpretation Comments HIV 1/2 4TH GEN, RFLX CONF (test NON-REACTIVE code = 3514) HIV AB/AG COMBO RFLX [id number] 00:00:00 Test Item Value Reference Range Interpretation Comments HIV 1/2 4TH GEN, RFLX CONF (test NON-REACTIVE code = 3514) VITAMIN D, 25 [id number] 00:00:00 Test Item Value Reference Range Interpretation Comments VITAMIN D, 25 OH (test code = 4958) 27 NG/ML VITAMIN D, 25 [id number] 00:00:00 Test Item Value Reference Range Interpretation Comments VITAMIN D, 25 OH (test code = 4958) 27 NG/ML HIV AB/AG COMBO RFLX [id number] 00:00:00 Test Item Value Reference Range Interpretation Comments HIV 1/2 4TH GEN, RFLX CONF (test NON-REACTIVE code = 3514) HIV AB/AG COMBO RFLX [id number] 00:00:00 Test Item Value Reference Range Interpretation Comments HIV 1/2 4TH GEN, RFLX CONF (test NON-REACTIVE code = 3514) VITAMIN D, 25 [id number] 00:00:00 Test Item Value Reference Range Interpretation Comments VITAMIN D, 25 OH (test code = 4958) 27 NG/ML VITAMIN D, 25 [id number] 00:00:00 Test Item Value Reference Range Interpretation Comments VITAMIN D, 25 OH (test code = 4958) 27 NG/ML HIV AB/AG COMBO RFLX [id number] 00:00:00 Test Item Value Reference Range Interpretation Comments HIV 1/2 4TH GEN, RFLX CONF (test NON-REACTIVE code = 3514) HIV AB/AG COMBO RFLX [id number] 00:00:00 Test Item Value Reference Range Interpretation Comments HIV 1/2 4TH GEN, RFLX CONF (test NON-REACTIVE code = 3514) VITAMIN D, 25 [id number] 00:00:00 Test Item Value Reference Range Interpretation Comments VITAMIN D, 25 OH (test code = 4958) 27 NG/ML VITAMIN D, 25 [id number] 00:00:00 Test Item Value Reference Range Interpretation Comments VITAMIN D, 25 OH (test code = 4958) 27 NG/ML TSH, THIRD [id number] 00:19:50 Test Item Value Reference Range Interpretation Comments TSH, THIRD GENERATION (test code 1.090 UIU/ML 0.400-4.100 = 2821) [id number] 00:00:00 Test Item Value Reference Range Interpretation Comments TSH, THIRD GENERATION (test code 1.090 UIU/ML = 2821) [id number] 00:00:00 Test Item Value Reference Range Interpretation Comments TSH, THIRD GENERATION (test code 1.090 UIU/ML = 2821) [id number] 00:00:00 Test Item Value Reference Range Interpretation Comments TSH, THIRD GENERATION (test code 1.090 UIU/ML = 2821) [id number] 00:00:00 Test Item Value Reference Range Interpretation Comments TSH, THIRD GENERATION (test code 1.090 UIU/ML = 2821) [id number] 00:00:00 Test Item Value Reference Range Interpretation Comments TSH, THIRD GENERATION (test code 1.090 UIU/ML = 2821) [id number] 00:00:00 Test Item Value Reference Range Interpretation Comments TSH, THIRD GENERATION (test code 1.090 UIU/ML = 2821) [id number] 00:00:00 Test Item Value Reference Range Interpretation Comments TSH, THIRD GENERATION (test code 1.090 UIU/ML = 2821) [id number] 00:00:00 Test Item Value Reference Range Interpretation Comments TSH, THIRD GENERATION (test code 1.090 UIU/ML = 2821) [id number] 00:00:00 Test Item Value Reference Range Interpretation Comments TSH, THIRD GENERATION (test code 1.090 UIU/ML = 2821) LIPID [id number] 23:59:41 Test Item Value Reference Range Interpretation [...] , SEE CLIENT ANNOUNCE MENT AT [email or web address] RISK RATIO LDL/HDL 1.79 RATIO <3.22 (test code = 2238) COMPREHENSIVE METABOLIC [id number] 23:59:41 Test Item Value Reference Range Interpretation Comments GLUCOSE (test code = 77 MG/DL 70-99 2216) BUN (test code = 8 MG/DL 6-20 2207) CREATININE (test 0.67 MG/DL 0.60-1.30 EFFECTIVE code = 2214) 08/12/2021, [facility] HAS IMPLEMENTED THE NKF-ASN RECOMME NDED KD-EPI EGF R REFIT CALCULATI ON THAT DOES NOT INCLUDE A COEFFICIENT FOR RACE. FOR MORE INFORMATION, SE E ANNOUNCEMENT [email or web address] eGFR (2020 CKD-EPI) 122 >60 (test code = 54922) ML/MIN/1.73 CALC BUN/CREAT (test 12 RATIO 6-28 code = 2235) SODIUM (test code = 141 MEQ/L 477-118 1993) POTASSIUM (test code 4.0 MEQ/L 3.5-5.4 = 8) CHLORIDE (test code 102 MEQ/L 95-107 = [...] = 92 U/L 5-40 H 2218) HEMOGLOBIN [id number] 03:14:31 Test Item Value Reference Range Interpretation Comments HEMOGLOBIN A1c (test code = 38754) 6.0 % 4.2-5.6 H CBC W/AUTO DIFF WITH [id number] 03:06:02 Test Item Value Reference Range Interpretation [...] RBCS 0.00 K/UL 0.00-0.11 (test code = 62643) CBC W/AUTO [id number] 00:00:00 Test Item Value Reference Range Interpretation [...] NUCLEATED RBCS (test code = 0.00 K/UL 60456) CBC W/AUTO [id number] 00:00:00 Test Item Value Reference Range Interpretation [...] NUCLEATED RBCS (test code = 0.00 K/UL 84221) CBC W/AUTO [id number] 00:00:00 Test Item Value Reference Range Interpretation [...] NUCLEATED RBCS (test code = 0.00 K/UL 90507) HEMOGLOBIN [id number] 00:00:00 Test Item Value Reference Range Interpretation Comments HEMOGLOBIN A1c (test code = 50293) 6.0 % HEMOGLOBIN [id number] 00:00:00 Test Item Value Reference Range Interpretation Comments HEMOGLOBIN A1c (test code = 56872) 6.0 % HEMOGLOBIN [id number] 00:00:00 Test Item Value Reference Range Interpretation Comments HEMOGLOBIN A1c (test code = 97332) 6.0 % LIPID [id number] 00:00:00 Test Item Value Reference Range Interpretation Comments CHOLESTEROL (test code = 2210) 124 MG/DL TRIGLYCERIDES (test code = 2232) 69 MG/DL HDL CHOLESTEROL (test code = 2220) 39 MG/DL CALC LDL CHOL (test code = 2237) 70 MG/DL RISK RATIO LDL/HDL (test code = 1.79 RATIO 2238) LIPID [id number] 00:00:00 Test Item Value Reference Range Interpretation Comments CHOLESTEROL (test code = 2210) 124 MG/DL TRIGLYCERIDES (test code = 2232) 69 MG/DL HDL CHOLESTEROL (test code = 2220) 39 MG/DL CALC LDL CHOL (test code = 2237) 70 MG/DL RISK RATIO LDL/HDL (test code = 1.79 RATIO 2238) COMPREHENSIVE METABOLIC [id number] 00:00:00 Test Item Value Reference Range Interpretation Comments GLUCOSE (test code = 2217) 77 MG/DL BUN (test code = 2208) 8 MG/DL CREATININE (test code = 2214) 0.67 MG/DL eGFR (2020 CKD-EPI) (test 122 ML/MIN/1.73 code = 44154) CALC BUN/CREAT (test code = 12 RATIO [...] code = 2219) 92 U/L COMPREHENSIVE METABOLIC [id number] 00:00:00 Test Item Value Reference Range Interpretation Comments GLUCOSE (test code = 2217) 77 MG/DL BUN (test code = 2208) 8 MG/DL CREATININE (test code = 2214) 0.67 MG/DL eGFR (2020 CKD-EPI) (test 122 ML/MIN/1.73 code = 27786) CALC BUN/CREAT (test code = 12 RATIO [...] code = 2219) 92 U/L CBC W/AUTO [id number] 00:00:00 Test Item Value Reference Range Interpretation [...] NUCLEATED RBCS (test code = 0.00 K/UL 78419) CBC W/AUTO [id number] 00:00:00 Test Item Value Reference Range Interpretation [...] NUCLEATED RBCS (test code = 0.00 K/UL 73477) CBC W/AUTO [id number] 00:00:00 Test Item Value Reference Range Interpretation [...] NUCLEATED RBCS (test code = 0.00 K/UL 87432) CBC W/AUTO [id number] 00:00:00 Test Item Value Reference Range Interpretation [...] NUCLEATED RBCS (test code = 0.00 K/UL 68375) HEMOGLOBIN [id number] 00:00:00 Test Item Value Reference Range Interpretation Comments HEMOGLOBIN A1c (test code = 89031) 6.0 % HEMOGLOBIN [id number] 00:00:00 Test Item Value Reference Range Interpretation Comments HEMOGLOBIN A1c (test code = 20459) 6.0 % HEMOGLOBIN [id number] 00:00:00 Test Item Value Reference Range Interpretation Comments HEMOGLOBIN A1c (test code = 66527) 6.0 % LIPID [id number] 00:00:00 Test Item Value Reference Range Interpretation Comments CHOLESTEROL (test code = 2210) 124 MG/DL TRIGLYCERIDES (test code = 2232) 69 MG/DL HDL CHOLESTEROL (test code = 2220) 39 MG/DL CALC LDL CHOL (test code = 2237) 70 MG/DL RISK RATIO LDL/HDL (test code = 1.79 RATIO 2238) LIPID [id number] 00:00:00 Test Item Value Reference Range Interpretation Comments CHOLESTEROL (test code = 2210) 124 MG/DL TRIGLYCERIDES (test code = 2232) 69 MG/DL HDL CHOLESTEROL (test code = 2220) 39 MG/DL CALC LDL CHOL (test code = 2237) 70 MG/DL RISK RATIO LDL/HDL (test code = 1.79 RATIO 2238) COMPREHENSIVE METABOLIC [id number] 00:00:00 Test Item Value Reference Range Interpretation Comments GLUCOSE (test code = 2217) 77 MG/DL BUN (test code = 2208) 8 MG/DL CREATININE (test code = 2214) 0.67 MG/DL eGFR (2020 CKD-EPI) (test 122 ML/MIN/1.73 code = 37644) CALC BUN/CREAT (test code = 12 RATIO [...] code = 2219) 92 U/L COMPREHENSIVE METABOLIC [id number] 00:00:00 Test Item Value Reference Range Interpretation Comments GLUCOSE (test code = 2217) 77 MG/DL BUN (test code = 2208) 8 MG/DL CREATININE (test code = 2214) 0.67 MG/DL eGFR (2020 CKD-EPI) (test 122 ML/MIN/1.73 code = 42398) CALC BUN/CREAT (test code = 12 RATIO [...] code = 2219) 92 U/L CBC W/AUTO [id number] 00:00:00 Test Item Value Reference Range Interpretation [...] NUCLEATED RBCS (test code = 0.00 K/UL 83844) CBC W/AUTO [id number] 00:00:00 Test Item Value Reference Range Interpretation [...] NUCLEATED RBCS (test code = 0.00 K/UL 61115) HEMOGLOBIN [id number] 00:00:00 Test Item Value Reference Range Interpretation Comments HEMOGLOBIN A1c (test code = 67559) 6.0 % HEMOGLOBIN [id number] 00:00:00 Test Item Value Reference Range Interpretation Comments HEMOGLOBIN A1c (test code = 95178) 6.0 % HEMOGLOBIN [id number] 00:00:00 Test Item Value Reference Range Interpretation Comments HEMOGLOBIN A1c (test code = 85393) 6.0 % LIPID [id number] 00:00:00 Test Item Value Reference Range Interpretation Comments CHOLESTEROL (test code = 2210) 124 MG/DL TRIGLYCERIDES (test code = 2232) 69 MG/DL HDL CHOLESTEROL (test code = 2220) 39 MG/DL CALC LDL CHOL (test code = 2237) 70 MG/DL RISK RATIO LDL/HDL (test code = 1.79 RATIO 2238) LIPID [id number] 00:00:00 Test Item Value Reference Range Interpretation Comments CHOLESTEROL (test code = 2210) 124 MG/DL TRIGLYCERIDES (test code = 2232) 69 MG/DL HDL CHOLESTEROL (test code = 2220) 39 MG/DL CALC LDL CHOL (test code = 2237) 70 MG/DL RISK RATIO LDL/HDL (test code = 1.79 RATIO 2238) COMPREHENSIVE METABOLIC [id number] 00:00:00 Test Item Value Reference Range Interpretation Comments GLUCOSE (test code = 2217) 77 MG/DL BUN (test code = 2208) 8 MG/DL CREATININE (test code = 2214) 0.67 MG/DL eGFR (2020 CKD-EPI) (test 122 ML/MIN/1.73 code = 42646) CALC BUN/CREAT (test code = 12 RATIO [...] code = 2219) 92 U/L COMPREHENSIVE METABOLIC [id number] 00:00:00 Test Item Value Reference Range Interpretation Comments GLUCOSE (test code = 2217) 77 MG/DL BUN (test code = 2208) 8 MG/DL CREATININE (test code = 2214) 0.67 MG/DL eGFR (2020 CKD-EPI) (test 122 ML/MIN/1.73 code = 89693) CALC BUN/CREAT (test code = 12 RATIO [...] 2219) 92 U/L MR KNEE LEFT WO [id number] 21:23:01 Stable MRI with lateral patellar subluxation [...] study and agree with the [facility]report[facility] 2020-03-16 13:46:56 Large effusion. No fracture. EXAM: XR KNEE 3 VW LEFT HISTORY: new onset of instablity left knee with 2 falls in last 4 wks COMPARISON: None FINDINGS: Imaging of the left knee demonstrates a moderate si zed effusion. Alignmentis maintained. There is mild depression of the medial tibial plateau on thePAview. No fracture is appreciated. Msmb, Radiant Results Inft User - 03/16/2020 8:48 AM CDTEXAM:XR KNEE 3 VW LEFTHISTORY:new onset of instablity left knee with 2 falls in last 4 wks COMPARISON:NoneFINDINGS: Imaging of the left knee demonstrates a moderate sized effusion. Alignmentis maintained. There is mild depression of the medial tibial plateau on thePA view. No fracture is appreciated.IMPRESSIONLarge effusion.No fracture.[facility], [id number] 00:00:00 Test Item Value Reference Range Interpretation Comments HCG, QUANTITATIVE (test code = <5 MIU/ML 2506) HCG, [id number] 00:00:00 Test Item Value Reference Range Interpretation Comments HCG, QUANTITATIVE (test code = <5 MIU/ML 2506) HCG, [id number] 00:00:00 Test Item Value Reference Range Interpretation Comments HCG, QUANTITATIVE (test code = <5 MIU/ML 2506) HCG, [id number] 00:00:00 Test Item Value Reference Range Interpretation Comments HCG, QUANTITATIVE (test code = <5 MIU/ML 2506) HCG, [id number] 00:00:00 Test Item Value Reference Range Interpretation Comments HCG, QUANTITATIVE (test code = <5 MIU/ML 2506) HCG, [id number] 00:00:00 Test Item Value Reference Range Interpretation Comments HCG, QUANTITATIVE (test code = <5 MIU/ML 2506) HCG, [id number] 00:00:00 Test Item Value Reference Range Interpretation Comments HCG, QUANTITATIVE (test code = <5 MIU/ML 2506) HCG, [id number] 00:00:00 Test Item Value Reference Range Interpretation Comments HCG, QUANTITATIVE (test code = <5 MIU/ML 2506) HCG, [id number] 00:00:00 Test Item Value Reference Range Interpretation Comments HCG, QUANTITATIVE (test code = <5 MIU/ML 2506) HCG, [id number] 00:00:00 Test Item Value Reference Range Interpretation Comments HCG, QUANTITATIVE (test TEST NOT PERFORMED code = 2506) MIU/ML HCG, [id number] 00:00:00 Test Item Value Reference Range Interpretation Comments HCG, QUANTITATIVE (test TEST NOT PERFORMED code = 2506) MIU/ML HCG, [id number] 00:00:00 Test Item Value Reference Range Interpretation Comments HCG, QUANTITATIVE (test TEST NOT PERFORMED code = 2506) MIU/ML HCG, [id number] 00:00:00 Test Item Value Reference Range Interpretation Comments HCG, QUANTITATIVE (test TEST NOT PERFORMED code = 2506) MIU/ML HCG, [id number] 00:00:00 Test Item Value Reference Range Interpretation Comments HCG, QUANTITATIVE (test TEST NOT PERFORMED code = 2506) MIU/ML HCG, [id number] 00:00:00 Test Item Value Reference Range Interpretation Comments HCG, QUANTITATIVE (test TEST NOT PERFORMED code = 2506) MIU/ML HCG, [id number] 00:00:00 Test Item Value Reference Range Interpretation Comments HCG, QUANTITATIVE (test TEST NOT PERFORMED code = 2506) MIU/ML HCG, [id number] 00:00:00 Test Item Value Reference Range Interpretation Comments HCG, QUANTITATIVE (test TEST NOT PERFORMED code = 2506) MIU/ML HCG, [id number] 00:00:00 Test Item Value Reference Range Interpretation Comments HCG, QUANTITATIVE (test TEST NOT PERFORMED code = 2506) MIU/ML CHLAMYDIA, AMPLIFIED, [id number] 00:00:00 Test Item Value Reference Range Interpretation Comments CHLAMYDIA, TMA (test code = 10020) NEGATIVE CHLAMYDIA, AMPLIFIED, [id number] 00:00:00 Test Item Value Reference Range Interpretation Comments CHLAMYDIA, TMA (test code = 02498) NEGATIVE GC, AMPLIFIED, [id number] 00:00:00 Test Item Value Reference Range Interpretation Comments GONORRHEA, TMA (test code = 31974) NEGATIVE GC, AMPLIFIED, [id number] 00:00:00 Test Item Value Reference Range Interpretation Comments GONORRHEA, TMA (test code = 12808) NEGATIVE CHLAMYDIA, AMPLIFIED, [id number] 00:00:00 Test Item Value Reference Range Interpretation Comments CHLAMYDIA, TMA (test code = 73036) NEGATIVE CHLAMYDIA, AMPLIFIED, [id number] 00:00:00 Test Item Value Reference Range Interpretation Comments CHLAMYDIA, TMA (test code = 10682) NEGATIVE GC, AMPLIFIED, [id number] 00:00:00 Test Item Value Reference Range Interpretation Comments GONORRHEA, TMA (test code = 81811) NEGATIVE GC, AMPLIFIED, [id number] 00:00:00 Test Item Value Reference Range Interpretation Comments GONORRHEA, TMA (test code = 52731) NEGATIVE CHLAMYDIA, AMPLIFIED, [id number] 00:00:00 Test Item Value Reference Range Interpretation Comments CHLAMYDIA, TMA (test code = 28937) NEGATIVE CHLAMYDIA, AMPLIFIED, [id number] 00:00:00 Test Item Value Reference Range Interpretation Comments CHLAMYDIA, TMA (test code = 22246) NEGATIVE GC, AMPLIFIED, [id number] 00:00:00 Test Item Value Reference Range Interpretation Comments GONORRHEA, TMA (test code = 13918) NEGATIVE GC, AMPLIFIED, [id number] 00:00:00 Test Item Value Reference Range Interpretation Comments GONORRHEA, TMA (test code = 43455) NEGATIVE HIV AB/AG COMBO RFLX [id number] 00:00:00 Test Item Value Reference Range Interpretation Comments HIV 1/2 4TH GEN, RFLX CONF (test NON-REACTIVE code = 3514) HIV AB/AG COMBO RFLX [id number] 00:00:00 Test Item Value Reference Range Interpretation Comments HIV 1/2 4TH GEN, RFLX CONF (test NON-REACTIVE code = 3514) ACUTE HEPATITIS [id number] 00:00:00 Test Item Value Reference Range Interpretation Comments HEPATITIS A IgM (test code = NON-REACTIVE 94627) HEPATITIS B CORE IgM (test code NON-REACTIVE = 4644) HEPATITIS B SURF AG (test code = NON-REACTIVE 2739) HEPATITIS C ANTIBODY (test code NON-REACTIVE = 4675) INTERPRETATION HEPATITIS A: (NOTE) (test code = 2552) INTERPRETATION HEPATITIS B: (NOTE) (test code = 59371) INTERPRETATION HEPATITIS C: (NOTE) (test code = 13032) ACUTE HEPATITIS [id number] 00:00:00 Test Item Value Reference Range Interpretation Comments HEPATITIS A IgM (test code = NON-REACTIVE 91814) HEPATITIS B CORE IgM (test code NON-REACTIVE = 4644) HEPATITIS B SURF AG (test code = NON-REACTIVE 2739) HEPATITIS C ANTIBODY (test code NON-REACTIVE = 4675) INTERPRETATION HEPATITIS A: (NOTE) (test code = 2552) INTERPRETATION HEPATITIS B: (NOTE) (test code = 16387) INTERPRETATION HEPATITIS C: (NOTE) (test code = 84502) [id number] 00:00:00 Test Item Value Reference Range Interpretation Comments RPR RESULT (test code = NON-REACTIVE 3501) RPR TITER (test code = 3500) NOT INDIC. TITER [id number] 00:00:00 Test Item Value Reference Range Interpretation Comments RPR RESULT (test code = NON-REACTIVE 3501) RPR TITER (test code = 3500) NOT INDIC. TITER [id number] 00:00:00 Test Item Value Reference Range Interpretation Comments RPR RESULT (test code = NON-REACTIVE 3501) RPR TITER (test code = 3500) NOT INDIC. TITER HIV AB/AG COMBO RFLX [id number] 00:00:00 Test Item Value Reference Range Interpretation Comments HIV 1/2 4TH GEN, RFLX CONF (test NON-REACTIVE code = 3514) HIV AB/AG COMBO RFLX [id number] 00:00:00 Test Item Value Reference Range Interpretation Comments HIV 1/2 4TH GEN, RFLX CONF (test NON-REACTIVE code = 3514) HIV AB/AG COMBO RFLX [id number] 00:00:00 Test Item Value Reference Range Interpretation Comments HIV 1/2 4TH GEN, RFLX CONF (test NON-REACTIVE code = 3514) ACUTE HEPATITIS [id number] 00:00:00 Test Item Value Reference Range Interpretation Comments HEPATITIS A IgM (test code = NON-REACTIVE 35560) HEPATITIS B CORE IgM (test code NON-REACTIVE = 4644) HEPATITIS B SURF AG (test code = NON-REACTIVE 2739) HEPATITIS C ANTIBODY (test code NON-REACTIVE = 4675) INTERPRETATION HEPATITIS A: (NOTE) (test code = 2552) INTERPRETATION HEPATITIS B: (NOTE) (test code = 40776) INTERPRETATION HEPATITIS C: (NOTE) (test code = 71432) ACUTE HEPATITIS [id number] 00:00:00 Test Item Value Reference Range Interpretation Comments HEPATITIS A IgM (test code = NON-REACTIVE 79797) HEPATITIS B CORE IgM (test code NON-REACTIVE = 4644) HEPATITIS B SURF AG (test code = NON-REACTIVE 2739) HEPATITIS C ANTIBODY (test code NON-REACTIVE = 4675) INTERPRETATION HEPATITIS A: (NOTE) (test code = 2552) INTERPRETATION HEPATITIS B: (NOTE) (test code = 08459) INTERPRETATION HEPATITIS C: (NOTE) (test code = 71209) [id number] 00:00:00 Test Item Value Reference Range Interpretation Comments RPR RESULT (test code = NON-REACTIVE 3501) RPR TITER (test code = 3500) NOT INDIC. TITER [id number] 00:00:00 Test Item Value Reference Range Interpretation Comments RPR RESULT (test code = NON-REACTIVE 3501) RPR TITER (test code = 3500) NOT INDIC. TITER [id number] 00:00:00 Test Item Value Reference Range Interpretation Comments RPR RESULT (test code = NON-REACTIVE 3501) RPR TITER (test code = 3500) NOT INDIC. TITER HIV AB/AG COMBO RFLX [id number] 00:00:00 Test Item Value Reference Range Interpretation Comments HIV 1/2 4TH GEN, RFLX CONF (test NON-REACTIVE code = 3514) ACUTE HEPATITIS [id number] 00:00:00 Test Item Value Reference Range Interpretation Comments HEPATITIS A IgM (test code = NON-REACTIVE 56366) HEPATITIS B CORE IgM (test code NON-REACTIVE = 4644) HEPATITIS B SURF AG (test code = NON-REACTIVE 2739) HEPATITIS C ANTIBODY (test code NON-REACTIVE = 4675) INTERPRETATION HEPATITIS A: (NOTE) (test code = 2552) INTERPRETATION HEPATITIS B: (NOTE) (test code = 82751) INTERPRETATION HEPATITIS C: (NOTE) (test code = 53165) ACUTE HEPATITIS [id number] 00:00:00 Test Item Value Reference Range Interpretation Comments HEPATITIS A IgM (test code = NON-REACTIVE 70703) HEPATITIS B CORE IgM (test code NON-REACTIVE = 4644) HEPATITIS B SURF AG (test code = NON-REACTIVE 2739) HEPATITIS C ANTIBODY (test code NON-REACTIVE = 4675) INTERPRETATION HEPATITIS A: (NOTE) (test code = 2552) INTERPRETATION HEPATITIS B: (NOTE) (test code = 95197) INTERPRETATION HEPATITIS C: (NOTE) (test code = 85355) [id number] 00:00:00 Test Item Value Reference Range Interpretation Comments RPR RESULT (test code = NON-REACTIVE 3501) RPR TITER (test code = 3500) NOT INDIC. TITER [id number] 00:00:00 Test Item Value Reference Range Interpretation Comments RPR RESULT (test code = NON-REACTIVE 3501) RPR TITER (test code = 3500) NOT INDIC. TITER [id number] 00:00:00 Test Item Value Reference Range Interpretation Comments RPR RESULT (test code = NON-REACTIVE 3501) RPR TITER (test code = 3500) NOT INDIC. TITER HIV AB/AG COMBO RFLX [id number] 00:00:00 Test Item Value Reference Range Interpretation Comments HIV 1/2 4TH GEN, RFLX CONF (test NON-REACTIVE code = 3514) HIV AB/AG COMBO RFLX [id number] 00:00:00 Test Item Value Reference Range Interpretation Comments HIV 1/2 4TH GEN, RFLX CONF (test NON-REACTIVE code = 3514) ACUTE HEPATITIS [id number] 00:00:00 Test Item Value Reference Range Interpretation Comments HEPATITIS A IgM (test code = NON-REACTIVE 56939) HEPATITIS B CORE IgM (test code NON-REACTIVE = 4644) HEPATITIS B SURF AG (test code = NON-REACTIVE 2739) HEPATITIS C ANTIBODY (test code NON-REACTIVE = 4675) HCV INDEX (test code = 30950) 0.13 INTERPRETATION HEPATITIS A: (NOTE) (test code = 2552) INTERPRETATION HEPATITIS B: (NOTE) (test code = 64418) INTERPRETATION HEPATITIS C: (NOTE) (test code = 92306) ACUTE HEPATITIS [id number] 00:00:00 Test Item Value Reference Range Interpretation Comments HEPATITIS A IgM (test code = NON-REACTIVE 33334) HEPATITIS B CORE IgM (test code NON-REACTIVE = 4644) HEPATITIS B SURF AG (test code = NON-REACTIVE 2739) HEPATITIS C ANTIBODY (test code NON-REACTIVE = 4675) HCV INDEX (test code = 72386) 0.13 INTERPRETATION HEPATITIS A: (NOTE) (test code = 2552) INTERPRETATION HEPATITIS B: (NOTE) (test code = 70103) INTERPRETATION HEPATITIS C: (NOTE) (test code = 37743) GC AND CHLAMYDIA, AMPLIFIED, [id number] 00:00:00 Test Item Value Reference Range Interpretation Comments GONORRHEA, TMA (test code = 27262) NEGATIVE CHLAMYDIA, TMA (test code = 91671) NEGATIVE GC AND CHLAMYDIA, AMPLIFIED, [id number] 00:00:00 Test Item Value Reference Range Interpretation Comments GONORRHEA, TMA (test code = 53635) NEGATIVE CHLAMYDIA, TMA (test code = 96708) NEGATIVE [id number] 00:00:00 Test Item Value Reference Range Interpretation Comments RPR RESULT (test code = NON-REACTIVE 3501) RPR TITER (test code = 3500) NOT INDIC. TITER [id number] 00:00:00 Test Item Value Reference Range Interpretation Comments RPR RESULT (test code = NON-REACTIVE 3501) RPR TITER (test code = 3500) NOT INDIC. TITER [id number] 00:00:00 Test Item Value Reference Range Interpretation Comments RPR RESULT (test code = NON-REACTIVE 3501) RPR TITER (test code = 3500) NOT INDIC. TITER HIV AB/AG COMBO RFLX [id number] 00:00:00 Test Item Value Reference Range Interpretation Comments HIV 1/2 4TH GEN, RFLX CONF (test NON-REACTIVE code = 3514) HIV AB/AG COMBO RFLX [id number] 00:00:00 Test Item Value Reference Range Interpretation Comments HIV 1/2 4TH GEN, RFLX CONF (test NON-REACTIVE code = 3514) HIV AB/AG COMBO RFLX [id number] 00:00:00 Test Item Value Reference Range Interpretation Comments HIV 1/2 4TH GEN, RFLX CONF (test NON-REACTIVE code = 3514) ACUTE HEPATITIS [id number] 00:00:00 Test Item Value Reference Range Interpretation Comments HEPATITIS A IgM (test code = NON-REACTIVE 66009) HEPATITIS B CORE IgM (test code NON-REACTIVE = 4644) HEPATITIS B SURF AG (test code = NON-REACTIVE 2739) HEPATITIS C ANTIBODY (test code NON-REACTIVE = 4675) HCV INDEX (test code = 58874) 0.13 INTERPRETATION HEPATITIS A: (NOTE) (test code = 2552) INTERPRETATION HEPATITIS B: (NOTE) (test code = 37756) INTERPRETATION HEPATITIS C: (NOTE) (test code = 34532) ACUTE HEPATITIS [id number] 00:00:00 Test Item Value Reference Range Interpretation Comments HEPATITIS A IgM (test code = NON-REACTIVE 50159) HEPATITIS B CORE IgM (test code NON-REACTIVE = 4644) HEPATITIS B SURF AG (test code = NON-REACTIVE 2739) HEPATITIS C ANTIBODY (test code NON-REACTIVE = 4675) HCV INDEX (test code = 69310) 0.13 INTERPRETATION HEPATITIS A: (NOTE) (test code = 2552) INTERPRETATION HEPATITIS B: (NOTE) (test code = 74238) INTERPRETATION HEPATITIS C: (NOTE) (test code = 69968) HIV AB/AG COMBO RFLX [id number] 00:00:00 Test Item Value Reference Range Interpretation Comments HIV 1/2 4TH GEN, RFLX CONF (test NON-REACTIVE code = 3514) GC AND CHLAMYDIA, AMPLIFIED, [id number] 00:00:00 Test Item Value Reference Range Interpretation Comments GONORRHEA, TMA (test code = 88010) NEGATIVE CHLAMYDIA, TMA (test code = 14284) NEGATIVE GC AND CHLAMYDIA, AMPLIFIED, [id number] 00:00:00 Test Item Value Reference Range Interpretation Comments GONORRHEA, TMA (test code = 71463) NEGATIVE CHLAMYDIA, TMA (test code = 55716) NEGATIVE [id number] 00:00:00 Test Item Value Reference Range Interpretation Comments RPR RESULT (test code = NON-REACTIVE 3501) RPR TITER (test code = 3500) NOT INDIC. TITER [id number] 00:00:00 Test Item Value Reference Range Interpretation Comments RPR RESULT (test code = NON-REACTIVE 3501) RPR TITER (test code = 3500) NOT INDIC. TITER [id number] 00:00:00 Test Item Value Reference Range Interpretation Comments RPR RESULT (test code = NON-REACTIVE 3501) RPR TITER (test code = 3500) NOT INDIC. TITER ACUTE HEPATITIS [id number] 00:00:00 Test Item Value Reference Range Interpretation Comments HEPATITIS A IgM (test code = NON-REACTIVE 04756) HEPATITIS B CORE IgM (test code NON-REACTIVE = 4644) HEPATITIS B SURF AG (test code = NON-REACTIVE 2739) HEPATITIS C ANTIBODY (test code NON-REACTIVE = 4675) HCV INDEX (test code = 65372) 0.13 INTERPRETATION HEPATITIS A: (NOTE) (test code = 2552) INTERPRETATION HEPATITIS B: (NOTE) (test code = 16652) INTERPRETATION HEPATITIS C: (NOTE) (test code = 59521) ACUTE HEPATITIS [id number] 00:00:00 Test Item Value Reference Range Interpretation Comments HEPATITIS A IgM (test code = NON-REACTIVE 50758) HEPATITIS B CORE IgM (test code NON-REACTIVE = 4644) HEPATITIS B SURF AG (test code = NON-REACTIVE 2739) HEPATITIS C ANTIBODY (test code NON-REACTIVE = 4675) HCV INDEX (test code = 29326) 0.13 INTERPRETATION HEPATITIS A: (NOTE) (test code = 2552) INTERPRETATION HEPATITIS B: (NOTE) (test code = 07488) INTERPRETATION HEPATITIS C: (NOTE) (test code = 76428) GC AND CHLAMYDIA, AMPLIFIED, [id number] 00:00:00 Test Item Value Reference Range Interpretation Comments GONORRHEA, TMA (test code = 99523) NEGATIVE CHLAMYDIA, TMA (test code = 12151) NEGATIVE GC AND CHLAMYDIA, AMPLIFIED, [id number] 00:00:00 Test Item Value Reference Range Interpretation Comments GONORRHEA, TMA (test code = 87169) NEGATIVE CHLAMYDIA, TMA (test code = 33851) NEGATIVE [id number] 00:00:00 Test Item Value Reference Range Interpretation Comments RPR RESULT (test code = NON-REACTIVE 3501) RPR TITER (test code = 3500) NOT INDIC. TITER [id number] 00:00:00 Test Item Value Reference Range Interpretation Comments RPR RESULT (test code = NON-REACTIVE 3501) RPR TITER (test code = 3500) NOT INDIC. TITER [id number] 00:00:00 Test Item Value Reference Range Interpretation Comments RPR RESULT (test code = NON-REACTIVE 3501) RPR TITER (test code = 3500) NOT INDIC. TITER [id number] 00:00:00 Test Item Value Reference Range Interpretation Comments RPR RESULT (test code = NON-REACTIVE 3501) RPR TITER (test code = 3500) NOT INDIC. TITER [id number] 00:00:00 Test Item Value Reference Range Interpretation Comments RPR RESULT (test code = NON-REACTIVE 3501) RPR TITER (test code = 3500) NOT INDIC. TITER [id number] 00:00:00 Test Item Value Reference Range Interpretation Comments RPR RESULT (test code = NON-REACTIVE 3501) RPR TITER (test code = 3500) NOT INDIC. TITER HIV AB/AG COMBO RFLX [id number] 00:00:00 Test Item Value Reference Range Interpretation Comments HIV 1/2 4TH GEN, RFLX CONF (test NON-REACTIVE code = 3514) HIV AB/AG COMBO RFLX [id number] 00:00:00 Test Item Value Reference Range Interpretation Comments HIV 1/2 4TH GEN, RFLX CONF (test NON-REACTIVE code = 3514) [id number] 00:00:00 Test Item Value Reference Range Interpretation Comments RPR RESULT (test code = NON-REACTIVE 3501) RPR TITER (test code = 3500) NOT INDIC. TITER [id number] 00:00:00 Test Item Value Reference Range Interpretation Comments RPR RESULT (test code = NON-REACTIVE 3501) RPR TITER (test code = 3500) NOT INDIC. TITER [id number] 00:00:00 Test Item Value Reference Range Interpretation Comments RPR RESULT (test code = NON-REACTIVE 3501) RPR TITER (test code = 3500) NOT INDIC. TITER [id number] 00:00:00 Test Item Value Reference Range Interpretation Comments RPR RESULT (test code = NON-REACTIVE 3501) RPR TITER (test code = 3500) NOT INDIC. TITER HIV AB/AG COMBO RFLX [id number] 00:00:00 Test Item Value Reference Range Interpretation Comments HIV 1/2 4TH GEN, RFLX CONF (test NON-REACTIVE code = 3514) HIV AB/AG COMBO RFLX [id number] 00:00:00 Test Item Value Reference Range Interpretation Comments HIV 1/2 4TH GEN, RFLX CONF (test NON-REACTIVE code = 3514) [id number] 00:00:00 Test Item Value Reference Range Interpretation Comments RPR RESULT (test code = NON-REACTIVE 3501) RPR TITER (test code = 3500) NOT INDIC. TITER [id number] 00:00:00 Test Item Value Reference Range Interpretation Comments RPR RESULT (test code = NON-REACTIVE 3501) RPR TITER (test code = 3500) NOT INDIC. TITER HIV AB/AG COMBO RFLX [id number] 00:00:00 Test Item Value Reference Range Interpretation Comments HIV 1/2 4TH GEN, RFLX CONF (test NON-REACTIVE code = 3514) HIV AB/AG COMBO RFLX [id number] 00:00:00 Test Item Value Reference Range Interpretation Comments HIV 1/2 4TH GEN, RFLX CONF (test NON-REACTIVE code = 3514) GC AND CHLAMYDIA, AMPLIFIED, [id number] 00:00:00 Test Item Value Reference Range Interpretation Comments GONORRHEA, TMA (test code = 06462) NEGATIVE CHLAMYDIA, TMA (test code = 70550) NEGATIVE GC AND CHLAMYDIA, AMPLIFIED, [id number] 00:00:00 Test Item Value Reference Range Interpretation Comments GONORRHEA, TMA (test code = 13346) NEGATIVE CHLAMYDIA, TMA (test code = 10568) NEGATIVE GC AND CHLAMYDIA, AMPLIFIED, [id number] 00:00:00 Test Item Value Reference Range Interpretation Comments GONORRHEA, TMA (test code = 99511) NEGATIVE CHLAMYDIA, TMA (test code = 05770) NEGATIVE GC AND CHLAMYDIA, AMPLIFIED, [id number] 00:00:00 Test Item Value Reference Range Interpretation Comments GONORRHEA, TMA (test code = 68519) NEGATIVE CHLAMYDIA, TMA (test code = 03044) NEGATIVE GC AND CHLAMYDIA, AMPLIFIED, [id number] 00:00:00 Test Item Value Reference Range Interpretation Comments GONORRHEA, TMA (test code = 17819) NEGATIVE CHLAMYDIA, TMA (test code = 93871) NEGATIVE GC AND CHLAMYDIA, AMPLIFIED, [id number] 00:00:00 Test Item Value Reference Range Interpretation Comments GONORRHEA, TMA (test code = 09392) NEGATIVE CHLAMYDIA, TMA (test code = 01049) NEGATIVE COMPREHENSIVE METABOLIC [id number] 00:00:00 Test Item Value Reference Range Interpretation Comments GLUCOSE (test code = 2217) 127 MG/DL BUN (test code = 2208) 5 MG/DL CREATININE (test code = 2214) 0.58 MG/DL eGFR AMER. (test code 148 ML/MIN/1.73 = 18766) eGFR NON- AMER. (test 128 ML/MIN/1.73 code = 92429) CALC BUN/CREAT (test code = 9 RATIO [...] code = 2219) 18 U/L COMPREHENSIVE METABOLIC [id number] 00:00:00 Test Item Value Reference Range Interpretation Comments GLUCOSE (test code = 2217) 127 MG/DL BUN (test code = 2208) 5 MG/DL CREATININE (test code = 2214) 0.58 MG/DL eGFR AMER. (test code 148 ML/MIN/1.73 = 69753) eGFR NON- AMER. (test 128 ML/MIN/1.73 code = 51414) CALC BUN/CREAT (test code = 9 RATIO [...] (test code = 2219) 18 U/L LIPID [id number] 00:00:00 Test Item Value Reference Range Interpretation Comments CHOLESTEROL (test code = 2210) 186 MG/DL TRIGLYCERIDES (test code = 2232) 106 MG/DL HDL CHOLESTEROL (test code = 2220) 54 MG/DL CALC LDL CHOL (test code = 2237) 111 MG/DL RISK RATIO LDL/HDL (test code = 2.05 RATIO 2238) LIPID [id number] 00:00:00 Test Item Value Reference Range Interpretation Comments CHOLESTEROL (test code = 2210) 186 MG/DL TRIGLYCERIDES (test code = 2232) 106 MG/DL HDL CHOLESTEROL (test code = 2220) 54 MG/DL CALC LDL CHOL (test code = 2237) 111 MG/DL RISK RATIO LDL/HDL (test code = 2.05 RATIO 2238) COMPREHENSIVE METABOLIC [id number] 00:00:00 Test Item Value Reference Range Interpretation Comments GLUCOSE (test code = 2217) 127 MG/DL BUN (test code = 2208) 5 MG/DL CREATININE (test code = 2214) 0.58 MG/DL eGFR AMER. (test code 148 ML/MIN/1.73 = 72611) eGFR NON- AMER. (test 128 ML/MIN/1.73 code = 23338) CALC BUN/CREAT (test code = 9 RATIO [...] code = 2219) 18 U/L COMPREHENSIVE METABOLIC [id number] 00:00:00 Test Item Value Reference Range Interpretation Comments GLUCOSE (test code = 2217) 127 MG/DL BUN (test code = 2208) 5 MG/DL CREATININE (test code = 2214) 0.58 MG/DL eGFR AMER. (test code 148 ML/MIN/1.73 = 60244) eGFR NON- AMER. (test 128 ML/MIN/1.73 code = 94723) CALC BUN/CREAT (test code = 9 RATIO [...] code = 2219) 18 U/L COMPREHENSIVE METABOLIC [id number] 00:00:00 Test Item Value Reference Range Interpretation Comments GLUCOSE (test code = 2217) 127 MG/DL BUN (test code = 2208) 5 MG/DL CREATININE (test code = 2214) 0.58 MG/DL eGFR AMER. (test code 148 ML/MIN/1.73 = 73485) eGFR NON- AMER. (test 128 ML/MIN/1.73 code = 27371) CALC BUN/CREAT (test code = 9 RATIO [...] (test code = 2219) 18 U/L LIPID [id number] 00:00:00 Test Item Value Reference Range Interpretation Comments CHOLESTEROL (test code = 2210) 186 MG/DL TRIGLYCERIDES (test code = 2232) 106 MG/DL HDL CHOLESTEROL (test code = 2220) 54 MG/DL CALC LDL CHOL (test code = 2237) 111 MG/DL RISK RATIO LDL/HDL (test code = 2.05 RATIO 2238) LIPID [id number] 00:00:00 Test Item Value Reference Range Interpretation Comments CHOLESTEROL (test code = 2210) 186 MG/DL TRIGLYCERIDES (test code = 2232) 106 MG/DL HDL CHOLESTEROL (test code = 2220) 54 MG/DL CALC LDL CHOL (test code = 2237) 111 MG/DL RISK RATIO LDL/HDL (test code = 2.05 RATIO 2238) COMPREHENSIVE METABOLIC [id number] 00:00:00 Test Item Value Reference Range Interpretation Comments GLUCOSE (test code = 2217) 127 MG/DL BUN (test code = 2208) 5 MG/DL CREATININE (test code = 2214) 0.58 MG/DL eGFR AMER. (test code 148 ML/MIN/1.73 = 32596) eGFR NON- AMER. (test 128 ML/MIN/1.73 code = 60696) CALC BUN/CREAT (test code = 9 RATIO [...] (test code = 2219) 18 U/L LIPID [id number] 00:00:00 Test Item Value Reference Range Interpretation Comments CHOLESTEROL (test code = 2210) 186 MG/DL TRIGLYCERIDES (test code = 2232) 106 MG/DL HDL CHOLESTEROL (test code = 2220) 54 MG/DL CALC LDL CHOL (test code = 2237) 111 MG/DL RISK RATIO LDL/HDL (test code = 2.05 RATIO 2238) LIPID [id number] 00:00:00 Test Item Value Reference Range Interpretation Comments CHOLESTEROL (test code = 2210) 186 MG/DL TRIGLYCERIDES (test code = 2232) 106 MG/DL HDL CHOLESTEROL (test code = 2220) 54 MG/DL CALC LDL CHOL (test code = 2237) 111 MG/DL RISK RATIO LDL/HDL (test code = 2.05 RATIO 2238) GC AND CHLAMYDIA, AMPLIFIED, [id number] 00:00:00 Test Item Value Reference Range Interpretation Comments GONORRHEA, TMA (test code = 15957) NEGATIVE CHLAMYDIA, TMA (test code = 54334) NEGATIVE GC AND CHLAMYDIA, AMPLIFIED, [id number] 00:00:00 Test Item Value Reference Range Interpretation Comments GONORRHEA, TMA (test code = 84108) NEGATIVE CHLAMYDIA, TMA (test code = 47222) NEGATIVE GC AND CHLAMYDIA, AMPLIFIED, [id number] 00:00:00 Test Item Value Reference Range Interpretation Comments GONORRHEA, TMA (test code = 45929) NEGATIVE CHLAMYDIA, TMA (test code = 70145) NEGATIVE GC AND CHLAMYDIA, AMPLIFIED, [id number] 00:00:00 Test Item Value Reference Range Interpretation Comments GONORRHEA, TMA (test code = 87360) NEGATIVE CHLAMYDIA, TMA (test code = 96780) NEGATIVE GC AND CHLAMYDIA, AMPLIFIED, [id number] 00:00:00 Test Item Value Reference Range Interpretation Comments GONORRHEA, TMA (test code = 55424) NEGATIVE CHLAMYDIA, TMA (test code = 90862) NEGATIVE GC AND CHLAMYDIA, AMPLIFIED, [id number] 00:00:00 Test Item Value Reference Range Interpretation Comments GONORRHEA, TMA (test code = 41302) NEGATIVE CHLAMYDIA, TMA (test code = 25880) NEGATIVE VAGINAL PATHOGENS DNA [id number] 00:00:00 Test Item Value Reference Range Interpretation Comments YOKO SPECIES (test code = ) POSITIVE G. VAGINALIS (test code = ) NEGATIVE T. VAGINALIS (test code = ) NEGATIVE VAGINAL PATHOGENS DNA [id number] 00:00:00 Test Item Value Reference Range Interpretation Comments YOKO SPECIES (test code = ) POSITIVE G. VAGINALIS (test code = 02246) NEGATIVE T. VAGINALIS (test code = 89755) NEGATIVE VAGINAL PATHOGENS DNA [id number] 00:00:00 Test Item Value Reference Range Interpretation Comments YOKO SPECIES (test code = 01824) POSITIVE G. VAGINALIS (test code = 74404) NEGATIVE T. VAGINALIS (test code = 18832) NEGATIVE VAGINAL PATHOGENS DNA [id number] 00:00:00 Test Item Value Reference Range Interpretation Comments YOKO SPECIES (test code = 26883) POSITIVE G. VAGINALIS (test code = 25534) NEGATIVE T. VAGINALIS (test code = 04042) NEGATIVE VAGINAL PATHOGENS DNA [id number] 00:00:00 Test Item Value Reference Range Interpretation Comments YOKO SPECIES (test code = ) POSITIVE G. VAGINALIS (test code = 26956) NEGATIVE T. VAGINALIS (test code = 87258) NEGATIVE VAGINAL PATHOGENS DNA [id number] 00:00:00 Test Item Value Reference Range Interpretation Comments YOKO SPECIES (test code = ) POSITIVE G. VAGINALIS (test code = 79763) NEGATIVE T. VAGINALIS (test code = 04324) NEGATIVE GC AND CHLAMYDIA, AMPLIFIED, [id number] 00:00:00 Test Item Value Reference Range Interpretation Comments GONORRHEA, TMA (test code = 06695) NEGATIVE CHLAMYDIA, TMA (test code = 09271) NEGATIVE GC AND CHLAMYDIA, AMPLIFIED, [id number] 00:00:00 Test Item Value Reference Range Interpretation Comments GONORRHEA, TMA (test code = 96813) NEGATIVE CHLAMYDIA, TMA (test code = 16212) NEGATIVE GC AND CHLAMYDIA, AMPLIFIED, [id number] 00:00:00 Test Item Value Reference Range Interpretation Comments GONORRHEA, TMA (test code = 55945) NEGATIVE CHLAMYDIA, TMA (test code = 87525) NEGATIVE GC AND CHLAMYDIA, AMPLIFIED, [id number] 00:00:00 Test Item Value Reference Range Interpretation Comments GONORRHEA, TMA (test code = 35366) NEGATIVE CHLAMYDIA, TMA (test code = 75362) NEGATIVE GC AND CHLAMYDIA, AMPLIFIED, [id number] 00:00:00 Test Item Value Reference Range Interpretation Comments GONORRHEA, TMA (test code = 32945) NEGATIVE CHLAMYDIA, TMA (test code = 88721) NEGATIVE GC AND CHLAMYDIA, AMPLIFIED, [id number] 00:00:00 Test Item Value Reference Range Interpretation Comments GONORRHEA, TMA (test code = 28982) NEGATIVE CHLAMYDIA, TMA (test code = 35769) NEGATIVE CULTURE, [id number] 00:00:00 Test Item Value Reference Range Interpretation Comments CULTURE, URINE (test SPECIMEN NUMBER: code = 80190) [id number] CULTURE, [id number] 00:00:00 Test Item Value Reference Range Interpretation Comments CULTURE, URINE (test SPECIMEN NUMBER: code = 52657) [id number] CULTURE, [id number] 00:00:00 Test Item Value Reference Range Interpretation Comments CULTURE, URINE (test SPECIMEN NUMBER: code = 36003) [id number] CULTURE, [id number] 00:00:00 Test Item Value Reference Range Interpretation Comments CULTURE, URINE (test SPECIMEN NUMBER: code = 67959) [id number] CULTURE, [id number] 00:00:00 Test Item Value Reference Range Interpretation Comments CULTURE, URINE (test SPECIMEN NUMBER: code = 97241) [id number] CULTURE, [id number] 00:00:00 Test Item Value Reference Range Interpretation Comments CULTURE, URINE (test SPECIMEN NUMBER: code = 90626) [id number] HEMOGLOBIN [id number] 00:00:00 Test Item Value Reference Range Interpretation Comments HEMOGLOBIN A1c (test code = 00652) 5.5 % HEMOGLOBIN [id number] 00:00:00 Test Item Value Reference Range Interpretation Comments HEMOGLOBIN A1c (test code = 18052) 5.5 % HEMOGLOBIN [id number] 00:00:00 Test Item Value Reference Range Interpretation Comments HEMOGLOBIN A1c (test code = 98993) 5.5 % CBC W/AUTO [id number] 00:00:00 Test Item Value Reference Range Interpretation [...] code = 1015) 310 K/UL CBC W/AUTO [id number] 00:00:00 Test Item Value Reference Range Interpretation [...] code = 1015) 310 K/UL CBC W/AUTO [id number] 00:00:00 Test Item Value Reference Range Interpretation [...] code = 1015) 310 K/UL COMPREHENSIVE METABOLIC [id number] 00:00:00 Test Item Value Reference Range Interpretation Comments GLUCOSE (test code = 2217) 73 MG/DL BUN (test code = 2208) 10 MG/DL CREATININE (test code = 2214) 0.51 MG/DL eGFR AMER. (test code 158 ML/MIN/1.73 = 86040) eGFR NON- AMER. (test 136 ML/MIN/1.73 code = 49549) CALCULATED BUN/CREAT (test 20 RATIO code = [...] code = 2219) 23 U/L COMPREHENSIVE METABOLIC [id number] 00:00:00 Test Item Value Reference Range Interpretation Comments GLUCOSE (test code = 2217) 73 MG/DL BUN (test code = 2208) 10 MG/DL CREATININE (test code = 2214) 0.51 MG/DL eGFR AMER. (test code 158 ML/MIN/1.73 = 88368) eGFR NON- AMER. (test 136 ML/MIN/1.73 code = 41350) CALCULATED BUN/CREAT (test 20 RATIO code = [...] (test code = 2219) 23 U/L LIPID [id number] 00:00:00 Test Item Value Reference Range Interpretation Comments CHOLESTEROL (test code = 2210) 167 MG/DL TRIGLYCERIDES (test code = 2232) 109 MG/DL HDL CHOLESTEROL (test code = 2220) 58 MG/DL CALCULATED LDL CHOL (test code = 87 MG/DL 2237) RISK RATIO LDL/HDL (test code = 1.50 RATIO 2238) LIPID [id number] 00:00:00 Test Item Value Reference Range Interpretation [...] (test code = 2821) 1.5 UIU/ML HEMOGLOBIN [id number] 00:00:00 Test Item Value Reference Range Interpretation Comments HEMOGLOBIN A1c (test code = 76165) 5.5 % HEMOGLOBIN [id number] 00:00:00 Test Item Value Reference Range Interpretation Comments HEMOGLOBIN A1c (test code = 64719) 5.5 % HEMOGLOBIN [id number] 00:00:00 Test Item Value Reference Range Interpretation Comments HEMOGLOBIN A1c (test code = 89562) 5.5 % HEMOGLOBIN [id number] 00:00:00 Test Item Value Reference Range Interpretation Comments HEMOGLOBIN A1c (test code = 22293) 5.5 % HEMOGLOBIN [id number] 00:00:00 Test Item Value Reference Range Interpretation Comments HEMOGLOBIN A1c (test code = 58356) 5.5 % CBC W/AUTO [id number] 00:00:00 Test Item Value Reference Range Interpretation [...] code = 1015) 310 K/UL CBC W/AUTO [id number] 00:00:00 Test Item Value Reference Range Interpretation [...] code = 1015) 310 K/UL CBC W/AUTO [id number] 00:00:00 Test Item Value Reference Range Interpretation [...] code = 1015) 310 K/UL COMPREHENSIVE METABOLIC [id number] 00:00:00 Test Item Value Reference Range Interpretation Comments GLUCOSE (test code = 2217) 73 MG/DL BUN (test code = 2208) 10 MG/DL CREATININE (test code = 2214) 0.51 MG/DL eGFR AMER. (test code 158 ML/MIN/1.73 = 29201) eGFR NON- AMER. (test 136 ML/MIN/1.73 code = 35207) CALCULATED BUN/CREAT (test 20 RATIO code = [...] code = 2219) 23 U/L COMPREHENSIVE METABOLIC [id number] 00:00:00 Test Item Value Reference Range Interpretation Comments GLUCOSE (test code = 2217) 73 MG/DL BUN (test code = 2208) 10 MG/DL CREATININE (test code = 2214) 0.51 MG/DL eGFR AMER. (test code 158 ML/MIN/1.73 = 11432) eGFR NON- AMER. (test 136 ML/MIN/1.73 code = 93451) CALCULATED BUN/CREAT (test 20 RATIO code = [...] (test code = 2219) 23 U/L LIPID [id number] 00:00:00 Test Item Value Reference Range Interpretation Comments CHOLESTEROL (test code = 2210) 167 MG/DL TRIGLYCERIDES (test code = 2232) 109 MG/DL HDL CHOLESTEROL (test code = 2220) 58 MG/DL CALCULATED LDL CHOL (test code = 87 MG/DL 2237) RISK RATIO LDL/HDL (test code = 1.50 RATIO 2238) LIPID [id number] 00:00:00 Test Item Value Reference Range Interpretation [...] (test code = 2821) 1.5 UIU/ML HEMOGLOBIN [id number] 00:00:00 Test Item Value Reference Range Interpretation Comments HEMOGLOBIN A1c (test code = 41099) 5.5 % CBC W/AUTO [id number] 00:00:00 Test Item Value Reference Range Interpretation [...] code = 1015) 310 K/UL CBC W/AUTO [id number] 00:00:00 Test Item Value Reference Range Interpretation [...] code = 1015) 310 K/UL CBC W/AUTO [id number] 00:00:00 Test Item Value Reference Range Interpretation [...] code = 1015) 310 K/UL COMPREHENSIVE METABOLIC [id number] 00:00:00 Test Item Value Reference Range Interpretation Comments GLUCOSE (test code = 2217) 73 MG/DL BUN (test code = 2208) 10 MG/DL CREATININE (test code = 2214) 0.51 MG/DL eGFR AMER. (test code 158 ML/MIN/1.73 = 55931) eGFR NON- AMER. (test 136 ML/MIN/1.73 code = 98121) CALCULATED BUN/CREAT (test 20 RATIO code = [...] code = 2219) 23 U/L COMPREHENSIVE METABOLIC [id number] 00:00:00 Test Item Value Reference Range Interpretation Comments GLUCOSE (test code = 2217) 73 MG/DL BUN (test code = 2208) 10 MG/DL CREATININE (test code = 2214) 0.51 MG/DL eGFR AMER. (test code 158 ML/MIN/1.73 = 08761) eGFR NON- AMER. (test 136 ML/MIN/1.73 code = 04029) CALCULATED BUN/CREAT (test 20 RATIO code = [...] (test code = 2219) 23 U/L LIPID [id number] 00:00:00 Test Item Value Reference Range Interpretation Comments CHOLESTEROL (test code = 2210) 167 MG/DL TRIGLYCERIDES (test code = 2232) 109 MG/DL HDL CHOLESTEROL (test code = 2220) 58 MG/DL CALCULATED LDL CHOL (test code = 87 MG/DL 2236) RISK RATIO LDL/HDL (test code = 1.50 RATIO 2238) LIPID [id number] 00:00:00 Test Item Value Reference Range Interpretation [...] Notes Date/Time Note Provider Source 2023-03-11 10:20:10 [id number]:20:10Formatting of this Wade note is different from the Clini [facility] [...] injection is deemed warranted Pt lives near [facility] and witnessed per Brian Spencer PA-C Patient [...] d/o under the care of psych on abiliedvin boothtaH/o SI and was admitted Complaining of Knee(s): [...] tissue masses are present.KNEE ROUTINE 10-39 YEARS GFKZDRZPF57/10/2023 10:40 AMResult Narrative: Examination: KNEE ROUTINE 10-39 [...] benzodiazapines, antidepressants, sedatives, and/or tranquilizers, the drug blacksmith assistant, recommends not operating ANY machinery or ANY [...] medications which may lead to sudden . [id number] and physical [id number]:04:53History and physical [id number] 73422|[id number] for patient [facility] [place], [place] [id number]. 3.15|[id number]"
[2023-07-14] MEDS ORDERED: ACETAMINOPHEN 500 MG TAB ONE (17:55)
[2023-07-14 18:03] LABS: Absolute Lymphocytes (CBC) 2.2 K/uL (0.7-4.9); Hematocrit 39.5 % (36.0-45.0); Lymphocytes % 34.2 % (15.3-44.8); MCV 85.7 fL (80-100); MPV 8.8 fL (7.6-11.3); Platelets 239 thou/uL (152-406); RBC Red Blood Cell Count 4.61 M/uL (3.86-4.86)
[2023-07-14 18:19] LABS: ALT/SGPT 25 U/L (13-56); AST/SGOT 15 U/L (15-37); Albumin 3.5 g/dL (3.4-5.0); Alkaline Phosphatase 66 U/L (45-117); BUN Blood Urea Nitrogen 7 mg/dL (7-18); Bicarbonate 24 mEq/L (21-32); Bilirubin Total 0.3 mg/dL (0.2-1.0); Glomerular Filtration Rate 110 ml/min (=/>90); Glucose Level 81 mg/dL (74-106); Magnesium 1.9 mg/dL (1.6-2.4); Potassium 3.3 mEq/L (3.5-5.1); Protein, Total 8.4 g/dL (6.4-8.2); Sodium Level 137 mEq/L (136-145)
--- NOTE | 2023-07-14 18:20 | RAD REPORT ---
EXAM DESCRIPTION: RADChest Single View07/14/2023 6:01 pm CLINICAL HISTORY: sz COMPARISON: Chest Single View dated 02/11/2023; Chest Single View dated 02/05/2023; Chest Single View d ated 12/25/2022; Chest Single View dated 10/13/2022 TECHNIQUE: Portable AP view of the chest. FINDINGS: The lungs are clear. No pneumothorax or effusion. The cardiomediastinal contours are unre markable. IMPRESSION: No acute cardiopulmonary process.
[2023-07-14 18:45] LABS: Bilirubin Direct < 0.1 mg/dL (0-0.2); Bilirubin Indirect, Calculated ND mg/dL (0.2-0.8)
--- NOTE | 2023-07-14 19:37 | ER ---
Nurse's Notes [facility] Name: Taylor Rodriguez Age: 28 yrs Sex: Female : 1995 Arrival Date: 07/14/2023 Time: 17:20 Bed 16 Private MD: Diagnosis: Other seizures Presentation: 07/14 17:22 Chief complaint: EMS states: pt had a witnessed seizure lasting approximately 3min by kc6 her home health nurse after having an argument with her sister. BGL en route 92. 2mg of IM Ativan admin by EMS. Coronavirus screen:. Coronavirus screen: At this time, the client does not indicate any symptoms associated with coronavirus-19. Ebola Screen: No symptoms or risks identified at this time. Initial Sepsis Screen: Does the patient meet any 2 criteria? No. Patient's initial sepsis screen is negative. Does the patient have a suspected source of infection? No. Patient's initial sepsis screen is negative. Risk Assessment: Do you want to hurt yourself or someone else? Patient reports no desire to harm self or others. Onset of symptoms was July 14, 2023. 17:22 Method Of Arrival: EMS: [facility] kc6 17:22 Acuity: MILAN 3 kc6 Triage Assessment: 17:24 General: Appears in no apparent distress. comfortable, obese, well groomed, Behavior is kc6 calm, cooperative, appropriate for age. Pain: Complains of pain in back. EENT: No signs and/or symptoms were reported regarding the EENT system. Neuro: Level of Consciousness is awake, alert, obeys commands, Oriented to person, place, time, situation, Appropriate for age Seizure activity reported prior to arrival. Seizure lasted approximately 3 minutes. Cardiovascular: Capillary refill < 3 seconds. Respiratory: Airway is patent Trachea midline Respiratory effort is even, unlabored, Respiratory pattern is regular, symmetrical. GI: No signs and/or symptoms were reported involving the gastrointestinal system. : No signs and/or symptoms were reported regarding the genitourinary system. Derm: No signs and/or symptoms reported regarding the dermatologic system. Skin is intact, is healthy with good turgor, Skin is pink, warm \T\ dry. Musculoskeletal: No signs and/or symptoms reported regarding the musculoskeletal system. Circulation, motion, and sensation intact. Capillary refill < 3 seconds, Range of motion: intact in all extremities. Historical: - Allergies: 17:24 Naproxen; kc6 - PMHx: 17:24 Anxiety; Bipolar disorder; Chronic pain; Depression; Fibromyalgia; High Blood Pressure; kc6 Schizophrenia; Sleep Apnea; Seizure; - Immunization history:: Client reports receiving the 2nd dose of the Covid vaccine, Flu vaccine is up to date. - Social history:: Smoking status: Reported history of juuling and/or vaping. Screenin:26 [facility] ED Fall Risk Assessment (Adult) History of falling in the last 3 months, kc6 including since admission No falls in past 3 months (0 pts) Confusion or Disorientation No (0 pts) Intoxicated or Sedated No (0 pts) Impaired Gait No (0 pts) Mobility Assist Device Used No (0 pt) Altered Elimination No (0 pt) Score/Fall Risk Level 0 - 2 = Low Risk. Abuse screen: Denies threats or abuse. Denies injuries from another. Nutritional screening: No deficits noted. Tuberculosis screening: No symptoms or risk factors identified. Assessment: 17:26 Reassessment: please see triage assessment. kc6 18:00 Reassessment: Pt states she does not want Tylenol because it will not work for her eh3 pain. Dr. Shirley notified. 18:30 Reassessment: Patient appears in no apparent distress at this time. Patient and/or 3 family updated on plan of care and expected duration. Pain level reassessed. Patient is alert, oriented x 3, equal unlabored respirations, skin warm/dry/pink. 19:43 Reassessment: Patient appears in no apparent distress at this time. Patient and/or lg3 family updated on plan of care and expected duration. Pain level reassessed. Patient is alert, oriented x 3, equal unlabored respirations, skin warm/dry/pink. Patient states feeling better. Patient states symptoms have improved. Vital Signs: 17:22 BP 126 / 99; Pulse 82; Resp 16 S; Temp 98(O); Pulse Ox 99% on R/A; Weight 137 kg (M); kc6 Height 5 ft. 3 in. (R); 18:30 BP 120 / 83; Pulse 77; Resp 16; Pulse Ox 99% on R/A; eh3 19:43 BP 122 / 81; Pulse 71; Resp 17 S; Pulse Ox 99% on R/A; lg3 17:22 Body Mass Index 53.50 (137.00 kg, 160.02 cm) kc6 [place] Coma Score: 17:24 Eye Response: spontaneous(4). Motor Response: obeys commands(6). Verbal Response: kc6 oriented(5). Total: 15. ED Course: 17:22 Patient arrived in ED. kc6 17:22 Nicholas Shirley MD is Attending Physician. kb 17:24 Triage completed. kc6 17:24 Arm band placed on. kc6 17:26 Patient has correct armband on for positive identification. Bed in low position. Call kc6 light in reach. Side rails up X2. Adult w/ patient. Seizure precautions initiated. Client placed on continuous cardiac and pulse oximetry monitoring. NIBP monitoring applied. 17:26 Patient maintains SpO2 saturation greater than 95% on room air. kc6 17:36 Tana Stanton, ROQUE is Primary Nurse. 3 17:46 EKG done, by ED staff. tm3 17:57 Missed attempt(s): 20 gauge in left antecubital area. Inserted saline lock: 20 gauge in kc6 right antecubital area, using aseptic technique. Blood collected. 18:03 XRAY Chest (1 view) In Process Unspecified. EDMS 19:00 Report given to ROQUE Wolff. [facility] 19:44 No provider procedures requiring assistance completed. IV discontinued, intact, lg3 bleeding controlled, No redness/swelling at site. Pressure dressing applied. Administered Medications: 19:01 Not Given (Patient Refused): [id number] mg PO once 3 Medication: 19:44 VIS not applicable for this client. lg3 Outcome: 19:37 Discharge ordered by . 19:44 Discharged to home via wheelchair, with family, 3 19:44 Condition: stable 19:44 Discharge instructions given to patient, Instructed on discharge instructions, follow up and referral plans. Demonstrated understanding of instructions, follow-up care, 19:44 Patient left the ED. lg3 Signatures: Dispatcher [employer] EDMS Zaynab Fitch, LOGISTICS TECH-C LOGISTICS TECH-CkGuillaume Jaime 3 Mariella Forrester RN RN 3 Nicholas Shirley MD MD [facility] Tana Stanton RN RN [facility] Jewels Rios RN RN [facility]
--- NOTE | 2023-07-14 19:37 | EDPHYS ---
Physician Documentation [facility] Name: Taylor Rodriguez Age: 28 yrs Sex: Female : 1995 Arrival Date: 07/14/2023 Time: 17:20 Bed 16 Private MD: ED Physician Nicholas Shirley HPI: 07/14 17:37 Patient is a 28-year-old with history of fibromyalgia bipolar chronic pain depression jr11 and recent diagnosis of possible seizure disorder on Topamax here for possible seizure. Per EMS, patient got in an argument with her sister, was noted to have jerking movements, per EMS, they never witnessed any LOC or loss of tone. Denies any trauma. Patient states that at times she does not remember what is happening when she is having a seizure, got recently started on Topamax by Jelena Ibrahim. Patient states she has chronic pain, has not had any pain worsening in her baseline, denies any fever, site from the argument, patient is otherwise at baseline with negative review of systems.. Historical: - Allergies: 17:24 Naproxen; kc6 - PMHx: 17:24 Anxiety; Bipolar disorder; Chronic pain; Depression; Fibromyalgia; High Blood Pressure; kc6 Schizophrenia; Sleep Apnea; Seizure; - Immunization history:: Client reports receiving the 2nd dose of the Covid vaccine, Flu vaccine is up to date. - Social history:: Smoking status: Reported history of juuling and/or vaping. ROS: 17:37 All other systems are negative, jr11 Exam: 17:37 Constitutional: This is a well developed, well nourished patient who is awake, alert, jr11 and in no acute distress. Head/Face: Normocephalic, atraumatic. Eyes: Extra-ocular motions intact. Lids and lashes normal. Conjunctiva and sclera are non-icteric and not injected. Cornea within normal limits. Periorbital areas with no swelling, redness, or edema. ENT: Nares patent. No nasal discharge, no septal abnormalities noted. Oropharynx with no redness, swelling, or masses, exudates, or evidence of obstruction, uvula midline. Mucous membranes moist. Neck: Trachea midline, no thyromegaly or masses palpated, and no cervical lymphadenopathy. Supple, full range of motion without nuchal rigidity, or vertebral point tenderness. No Meningismus. Chest/axilla: Normal chest wall appearance and motion. Nontender with no deformity. No lesions are appreciated. Cardiovascular: Regular rate and rhythm with a normal S1 and S2. No gallops, murmurs, or rubs. Normal PMI, no JVD. No pulse deficits. Respiratory: Lungs have equal breath sounds bilaterally, clear to auscultation and percussion. No rales, rhonchi or wheezes noted. No increased work of breathing, no retractions or nasal flaring. Abdomen/GI: Soft, non-tender, with normal bowel sounds. No distension or tympany. No guarding or rebound. No evidence of tenderness throughout. MS/ Extremity: Pulses equal, no cyanosis. Neurovascular intact. Full, normal range of motion. Neuro: Awake and alert, GCS 15, oriented to person, place, time, and situation. No gross motor or sensory deficits. Vital Signs: 17:22 BP 126 / 99; Pulse 82; Resp 16 S; Temp 98(O); Pulse Ox 99% on R/A; Weight 137 kg (M); kc6 Height 5 ft. 3 in. (R); 18:30 BP 120 / 83; Pulse 77; Resp 16; Pulse Ox 99% on R/A; eh3 19:43 BP 122 / 81; Pulse 71; Resp 17 S; Pulse Ox 99% on R/A; lg3 17:22 Body Mass Index 53.50 (137.00 kg, 160.02 cm) kc6 Tori Coma Score: 17:24 Eye Response: spontaneous(4). Motor Response: obeys commands(6). Verbal Response: kc6 oriented(5). Total: 15. MDM: 17:22 Patient medically screened. kb 17:37 Differential diagnosis: seizure, vs spams vs pseudosz. Data reviewed: vital signs, jrHanh nurses notes, EMS record. 17:48 ED course: EKG interpreted by shows normal sinus rhythm, normal axis, normal jrHanh intervals, no acute ST changes. Nonspecific T wave inversion in lead III. bridge design engineer interpreted by shows normal sinus rhythm rate of 80.. 19:36 ED course: Spoke to mom and pt, comfortable with OP follow up. CXR interpreted by jessee rai no PNA . 07/14 17:35 Order name: Basic Metabolic Panel; Complete Time: 19:25 07/14 17:35 Order name: CBC with Diff; Complete Time: 18:23 07/14 17:35 Order name: LFT's; Complete Time: 19:25 07/14 17:35 Order name: Magnesium; Complete Time: 19:25 07/14 17:35 Order name: XRAY Chest (1 view); Complete Time: 18:23 07/14 17:35 Order name: EKG; Complete Time: 17:36 07/14 17:35 Order name: Cardiac monitoring; Complete Time: 17:36 07/14 17:35 Order name: EKG - Nurse/Tech; Complete Time: 17:57 07/14 17:35 Order name: IV Saline Lock; Complete Time: 17:57 07/14 17:35 Order name: Labs collected and sent; Complete Time: 17:57 07/14 17:35 Order name: O2 Per Protocol; Complete Time: 17:36 07/14 17:35 Order name: O2 Sat Monitoring; Complete Time: 17:36 Administered Medications: 19:01 Not Given (Patient Refused): [id number] mg PO once eh3 Disposition Summary: 07/14/23 19:37 Discharge Ordered Notes: Location: Home [facility] Condition: Stable 11 Diagnosis - Other seizures 11 Followup: 11 - With: Private Physician - When: 1 - 2 days - Reason: Re-evaluation by your physician Discharge Instructions: - Discharge Summary Sheet 11 - Seizure, Adult, [id number] Forms: - Medication Reconciliation Form 11 - Thank You Letter 11 - Antibiotic Education 11 - Prescription Opioid Use jr11 - Patient Portal Instructions 11 - Leadership Thank You Letter jr11 Signatures: Dispatcher [employer] Zaynab Zarate, AUTO WINDER-C AUTO WINDER-Nicholas Cevallos MD MD 11 Jewels Rios RN RN [id number] Tana Stanton RN 3
[2023-07-14 20:09] VITALS: TEMP 98; O2SAT 99
[2023-07-14 20:21] VITALS: BP 122/81
--- NOTE | 2023-07-15 17:22 | EKG ---
Test Date: 2023-07-14 Test Time: 17:44:37 Auto Air Conditioning Installer: TM MEASUREMENT RESULTS: Intervals: Rate: 78 MN: 164 QRSD: 86 QT: 398 QTc: 453 [place]: P: 32 MN: 164 QRS: 31 T: 8 INTERPRETIVE STATEMENTS: Normal sinus rhythm Normal ECG Compared to ECG 06/27/2023 12:35:57 No significant changes Electronically Signed On 07-15-23 17:20:05 ABALONE SHELLER by Parmjit Yepez
== END 2023-07-14 19:44 | disposition home or self-care (01) ==
LOC: ER 17:20
DX: G40.802 Other epilepsy, not intractable, without status epilepticus (principal); F31.9 Bipolar disorder, unspecified; Z88.6 Allergy status to analgesic agent
CPT/HCPCS: 36415; 71045; 80048; 80076; 83735; 85025; 93005; 99284

== ENCOUNTER 2023-07-19 15:28 | Emergency (ER) | payer OTHER ==
--- OUTSIDE RECORDS SUMMARY | 2023-07-19 15:46 | XMS REPORT | Continuity of Care Document ---
:1995 Author Organization [facility] t Address [address] [facility]. [address] [place] [address] Care Team Providers Name Role Phone No, Pcp [facility] Primary Care Physician Unavailable DARLIN VICK Attending Clinician Unavailable TREVOR ESCAMILLA Attending Clinician Unavailable DORA WINN Attending Clinician Unavailable ROBYN GARY Attending Clinician Unavailable SHIRLEY BADILLO Attending Clinician Unavailable SANDRA WISDOM Attending Clinician Unavailable TERRENCE RAMON Attending Clinician Unavailable LEI KIMBALL Attending Clinician Unavailable BYRON MALHOTRA Attending Clinician Unavailable MD ARAVIND Attending Clinician Unavailable KANDI GROSS Attending Clinician Unavailable LAB90 Attending Clinician Unavailable JUVENCIO ORNELAS Attending Clinician Unavailable SYLVESTER HUTCHINSON Attending Clinician Unavailable Sylvester Quijano S Attending Clinician CARLIE BRIONES Attending Clinician Unavailable [id number] Attending Clinician Unavailable JONN SCHMIDT Attending Clinician Unavailable LUKE ANGELO Attending Clinician Unavailable GAURAV PURVIS Attending Clinician Unavailable ANGELICA NEVAREZ Attending Clinician Unavailable PENAFRACHEL WALL Attending Clinician Unavailable [place] LOGISTICS OPERATIONS DIRECTOR, Rachel Munoz Attending Clinician [phone] [facility] Attending Clinician Unavailable KELSEY WANG Attending Clinician Unavailable SIMI JOHN Attending Clinician Unavailable OLENA TREVIÑO Attending Clinician Unavailable JAROD TURPIN Attending Clinician Unavailable PLABPA Attending Clinician Unavailable JENNIFER BYNUM Attending Clinician Unavailable JALYN CRUZ Attending Clinician Unavailable MANOLO MARTINEZ Attending Clinician Unavailable PATGAUTAM WINCHESTER Attending Clinician Unavailable PL, TECH 1 Attending Clinician Unavailable LAB47 Attending Clinician Unavailable AMBREEN_CHRISTINA Attending Clinician Unavailable ANNEMARIE GRAFF Attending Clinician Unavailable Alexandre Wick Attending Clinician SHEY BIANCHI Attending Clinician Unavailable Doctor Unassigned, [place] Attending Clinician Unavailable Shey Bianchi MD Attending Clinician ALEXANDRE DELAGDO Attending Clinician Unavailable James Sosa MD Attending Clinician [facility] Attending Clinician Unavailable ILIANA LAMAR Attending Clinician Unavailable Annemarie Alexander Attending Clinician Dannie Monroe MD Attending Clinician DANNIE MONROE Attending Clinician Unavailable MARIANO Admitting Clinician Unavailable ALEXANDRE DELGADO Admitting Clinician Unavailable Payers Payer Name Policy Type Policy Number Effective Date Expiration Date S dameon AETNA MP CVS 9 [id number] 2022 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 [id number] 2020 00:00:00 Problems Condition Condition Condition Status Onset Resolution Last Treating Co mments Source Name Details Category Date Date Treatment Clinician Date Paresthesi Paresthesi Disease Active K elsey as as 928 Seybold 00:00: - 00 Externa l Depression Depression Disease Active K elsey with with 05-28 Seybold somatizati somatizati 00:00: - on on 00 Externa l Iron Iron Disease Active Jelena deficiency deficiency 1-12 Se ybold anemia anemia 00:00: - 00 Externa l Recurrent Recurrent Disease Active Reynlod sey major major 1-10 Seybold depressive depressive [...] Decreased Decreased Disease Active 2016-08 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 0-12 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 00:00: Medical Branch Decreased Decreased Disease Active 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-08 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 0-12 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 00:00: Medical Branch Pain Pain Disease Active 2016-08 Univers 0-12 ity of 00:00: 00 Medical Branch 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 0-12 it y of 00:00: Medical Branch 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 9-14 ity of 00:00: [place] 00 Medical [facility] Manic Manic Disease Active Univers depression depression -14 it y of 00:00: [place] 00 [facility] 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 -14 ity of 00:00: [place] 00 Medical [facility] Allergies, Adverse Reactions, Alerts Allergy Allergy Status Severity Reaction(s) Onset Inactive Treating Comm ents Source Name Type Date Date Clinician Naproxen Propensi [facility] adverse [facility]: [facility] reaction [facility] s NAPROXEN Allergy [facility] [...] Active Univers ALLERGIE Class ity of S [facility] Social History Social Habit Start Date Stop Date Quantity Comments Source Gender identity 2022-09-04 Identifies as Jelena Ibrahim - 10:33:35 male gender External (finding) History of tobacco Cigarette Smoker Jelena Ibrahim - use External History SDOH Jelena nolasco - Alcohol Frequency Externa l History SDOH Jelena nolasco - 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 SDOH Jelena nolasco - Alcohol Binge External Exposure to Not sure University of SARS-CoV-2 (event) [facility] Sexual orientation [facility] Alcohol intake 2023-07-01 2023-07-01 Current drinker Beth Ibrahim - 00:00:00 00:00:00 of alcohol External (finding) Tobacco use and 2022-12-22 2022-12-22 Smokeless tobacco Ke emirey Seybold - exposure 00:00:00 00:00:00 non-user External Alcohol Comment 2022-09-09 2022-09-09 rare Jelena Guevara ybold - 00:00:00 00:00:00 External History of Social 2020-08-02 2020-08-02 Univers ity of function 00:00:00 00:00:00 [facility] Tobacco Comment 2019-08-16 2019-08-16 Quit Universit y of 00:00:00 00:00:00 smoking/vaping [facility] earlier this year Branch Sex Assigned At [birth year] FELY Lee 00:00:00 00:00:00 [facility] Smoking Status Start Date Stop Date Source Occasional tobacco 2022-12-22 00:00:00 Jelena Guevara ybold - smoker External Never smoked tobacco Jelena Guevarayb old - External Ex-smoker 2019-10-25 00:00:00 2019-10-25 [place] [facility] 00:00:00 [facility] Medications Ordered Filled Start Stop Current Ordering Indication Dosage Frequency Signature Comments Components Source Medication Medication Date Date Medication? Clinician (SIG) Name Name Amlodipine 2022-08 Yes 5mg Take 1 Kelse y Besylate 08-31 tablet (5 Seybol d (NORVASC) 5 11:21: mg total) - MG oral 13 by mouth Externa Tablet daily. l Cyanocobala 2022-08 Yes Take by Reynold sey min 08-31 mouth. Seybold (VITAMIN B 11:19: - 12 OR) 53 Externa l Dicyclomine 2022-08 Yes 20mg Take 1 Ashlie ey HCl 20 MG 1-01 tablet (20 Seyb old oral Tablet 11:19: mg total) - 53 by mouth Externa every 6 l (six) hours. Trazodone 2022-08 Yes every 24 Ashlie ey HCl 100 MG 1-01 hours Seybold oral Tablet 11:19: - 53 Externa l Topiramate 2022-08 Yes 2 BID. Kelse y 50 MG oral 1-01 Seybold Tablet 00:00: - 00 Externa l ACETAMINOPH 2022-08 Yes one Q 6 Reynold sey EN-BUTALBIT 1-01 hours PRN Sey bold AL 50-325 00:00: pain, do - MG oral 00 not Externa Tablet combine l with narcotics, benzodiaze pines, or actaminoph en containing compounds, do not drive. Meclizine 2022-08 Yes [id number] 25mg Q.[id number] Take 1 Jelena HCl 25 MG 0-31 [id number] tablet (25 Seybold oral Tablet 00:00: 3D mg total) - 00 by mouth 3 Externa times l daily as needed. hydroCHLORO 2022-08 Yes [id number] 25mg Take 2 Jelena thiazide 0-31 capsules Seybold 12.5 MG 00:00: (25 mg - oral 00 total) by Externa Capsule mouth l daily. Potassium 2022-08 Yes [id number] 1{tbl} Take 1 Jelena Chloride ER 0-31 tablet by Sey bold 20 MEQ oral 00:00: mouth 2 - Tab CR 00 times Externa daily. l Topiramate 2022-08 No 50mg TAKE ONE Ke lsey 50 MG oral 0-19 07-01 (1) Seybold Tablet 00:00: 00:00 TABLET(S) - 00 :00 BY MOUTH Externa EVERY l TWELVE HOURS. Ketorolac 2022-08 Yes [id number] TAKE ONE Jelena Tromethamin 0-16 (1) TABLET [...] Spacer/Aero Yes See Admin K elsey -Holding -11 Instructio Seybo ld Chambers 00:00: ns USE [...] every 24 Ashlie ey HCl 100 MG 9 hours Seybold oral Tablet 10:32: - 52 Externa l Cyanocobala Yes Take by Reynold sey min 05-06 mouth. Seybold (VITAMIN B 10:32: - 12 OR) 52 Externa l Ketorolac Yes [id number] 10mg Q.25D Take 1 Jelena Tromethamin 05-06 tablet (10 Se ybold e 10 MG 00:00: mg total) - oral Tablet 00 by mouth Exte rna every 6 l hours as needed for pain. Ketorolac Yes [id number] 10mg Q.25D Take 1 Jelena Tromethamin - tablet (10 Se ybold e 10 MG 00:00: mg total) - oral Tablet 00 by mouth Exte rna every 6 l hours as needed for pain. Ketorolac 2022- No [id number] 30mg Ke emirey Tromethamin 04-28 Seybold e (TORADOL) 14:00: 14:09 - 30 mg/mL 00 :00 Externa l Ketorolac 2022- No [id number] 30mg 30 mg, Jelena Tromethamin 04-28 intramuscu S eybold e (TORADOL) 14:00: 14:09 lar, ONCE, - 30 mg/mL 00 :00 On Tue Externa 04/28/23 at l 0900, For 1 dose Cyanocobala Yes Take by Reynold sey min 8-29 mouth Seybold (VITAMIN B 08:57: - 12 [...] Seybold 08:57: - 25 Externa l Losartan 3-0 Yes [id number] 100mg TAKE ONE Jelena Potassium 8-28 (1) Seybold (COZAAR) 00:00: TABLET(S) - 100 MG oral 00 BY MOUTH Exte rna Tablet ONCE A l DAY. Aripiprazol 2022-0 Yes 1{tbl} Take 1 Ke lsey e 20 MG 8-28 tablet by Seybold oral Tablet 00:00: mouth at - 00 bedtime. Externa l Losartan 2022-0 Yes [id number] 100mg TAKE ONE Jelena Potassium 8-28 (1) Seybold (COZAAR) 00:00: TABLET(S) - 100 MG oral 00 BY MOUTH Exte rna Tablet ONCE A l DAY. Aripiprazol 3-0 Yes 1{tbl} Take 1 Ke lsey e 20 MG 8-28 tablet by Seybold oral Tablet 00:00: mouth at - 00 bedtime. Externa l Losartan 3-0 Yes [id number] 100mg TAKE ONE Jelena Potassium 8-28 (1) Seybold (COZAAR) 00:00: TABLET(S) - 100 MG oral 00 BY MOUTH Exte rna Tablet ONCE A l DAY. Aripiprazol 3-0 Yes 1{tbl} Take 1 Ke lsey e 20 MG 8-28 tablet by Seybold oral Tablet 00:00: mouth at - 00 bedtime. Externa l Losartan 3-0 Yes [id number] 100mg TAKE ONE Jelena Potassium 8-28 (1) Seybold (COZAAR) 00:00: TABLET(S) - 100 MG oral 00 BY MOUTH Exte rna Tablet ONCE A l DAY. 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 Aripiprazol 0 2022- No Abilify Ke lsey e (Abilify) 8-25 08-25 Seybold 10 MG oral 08:57: 00:00 - Tablet 54 :00 Externa l Fluticasone 2022-0 Yes [id number] 1{puff} Inhale 1 Jelena -Salmeterol 8-25 6 puff into Sey bold (Advair 00:00: the lungs - Diskus) 00 2 times Externa 100-50 daily. l MCG/ACT inhalation AEROSOL POWDER, BREATH ACTIVATED Fluticasone 2022-0 Yes [id number] 1{puff} Inhale 1 Jelena -Salmeterol 8-25 6 puff into Sey bold (Advair 00:00: the lungs - Diskus) 00 2 times Externa 100-50 daily. l MCG/ACT inhalation AEROSOL POWDER, BREATH ACTIVATED Fluticasone 2022-0 Yes [id number] 1{puff} Inhale 1 Jelena -Salmeterol 8-25 6 puff into Sey bold (Advair 00:00: the lungs - Diskus) 00 2 times Externa 100-50 daily. l MCG/ACT inhalation AEROSOL POWDER, BREATH ACTIVATED Fluticasone 3-0 Yes [id number] 1{puff} Inhale 1 Jelena -Salmeterol 8-25 6 puff into Sey bold (Advair 00:00: the lungs - Diskus) 00 2 times Externa 100-50 daily. l MCG/ACT inhalation AEROSOL POWDER, BREATH ACTIVATED Fluticasone 2023-0 Yes [id number] 1{puff} Inhale 1 Jelena -Salmeterol 8-25 6 puff into Sey bold (Advair 00:00: the lungs - Diskus) 00 2 times Externa 100-50 daily. l MCG/ACT inhalation AEROSOL POWDER, BREATH ACTIVATED Fluticasone 2023-0 2023- No [id number] 1{puff} Inhale 1 Jelena -Salmeterol 8-25 08-25 6 puff into Se ybold (Advair 00:00: 00:00 the lungs - Diskus) 00 :00 2 times Externa 100-50 daily. l MCG/ACT inhalation AEROSOL POWDER, BREATH ACTIVATED Potassium 2022-0 Yes [id number] 1{tbl} TAKE ONE Jelena Chloride ER 8-22 (1) Seybold 20 MEQ oral 00:00: TABLET(S) - Tab CR 00 BY MOUTH Externa DAILY. l Meclizine 2022-0 Yes [id number] TAKE ONE Jelena HCl 25 MG 8-22 (1) Seybold oral Tablet 00:00: TABLET(S) - 00 BY MOUTH Externa THREE l TIMES A DAY NEEDED. FeroSul 325 2022-0 Yes [id number] TAKE ONE Jelena (65 Fe) MG 8-22 (1) TABLET Sey bold oral Tablet 00:00: (325 MG - 00 TOTAL) BY Externa MOUTH l DAILY (WITH BREAKFAST) . Topiramate 2022-0 Yes 50mg Take 1 Kelse y 50 MG oral 8-22 tablet (50 Sey bold Tablet 00:00: mg total) - 00 by mouth Externa every 12 l hours. Potassium 2023-0 Yes [id number] 1{tbl} TAKE ONE Jelena Chloride ER 8-22 (1) Seybold 20 MEQ oral 00:00: TABLET(S) - Tab CR 00 BY MOUTH Externa DAILY. l Meclizine 2022-0 Yes [id number] TAKE ONE Jelena HCl 25 MG 8-22 (1) Seybold oral Tablet 00:00: TABLET(S) - 00 BY MOUTH Externa THREE l TIMES A DAY NEEDED. FeroSul 325 3-0 Yes [id number] TAKE ONE Jelena (65 Fe) MG 8-22 (1) TABLET Sey bold oral Tablet 00:00: (325 MG - 00 TOTAL) BY Externa MOUTH l DAILY (WITH BREAKFAST) . FeroSul 325 2022-0 Yes [id number] TAKE ONE Jelena (65 Fe) MG 8-22 (1) TABLET Sey bold oral Tablet 00:00: (325 MG - 00 TOTAL) BY Externa MOUTH l DAILY (WITH BREAKFAST) . Potassium 3-0 Yes [id number] 1{tbl} TAKE ONE Jelena Chloride ER 8-22 (1) Seybold 20 MEQ oral 00:00: TABLET(S) - Tab CR 00 BY MOUTH Externa DAILY. l Meclizine 2022-0 Yes [id number] TAKE ONE Jelena HCl 25 MG 8-22 (1) Seybold oral Tablet 00:00: TABLET(S) - 00 BY MOUTH Externa THREE l TIMES A DAY NEEDED. FeroSul 325 2022-0 Yes [id number] TAKE ONE Jelena (65 Fe) MG 8-22 (1) TABLET Sey bold oral Tablet 00:00: (325 MG - 00 TOTAL) BY Externa MOUTH l DAILY (WITH BREAKFAST) . Topiramate 2022-0 Yes 50mg Take 1 Kelse y 50 MG oral 8-22 tablet (50 Sey bold Tablet 00:00: mg total) - 00 by mouth Externa every 12 l hours. Potassium 3-0 Yes [id number] 1{tbl} TAKE ONE Jelena Chloride ER 8-22 (1) Seybold 20 MEQ oral 00:00: TABLET(S) - Tab CR 00 BY MOUTH Externa DAILY. l Meclizine 3-0 Yes [id number] TAKE ONE Jelena HCl 25 MG 8-22 (1) Seybold oral Tablet 00:00: TABLET(S) - 00 BY MOUTH Externa THREE l TIMES A DAY NEEDED. FeroSul 325 3-0 Yes [id number] TAKE ONE Jelena (65 Fe) MG 8-22 [...] 00 :00 EVERY 12 Externa HOURS. l cyclobenzap 3-0 Yes 10mg Take [address] [facility] rine [...] times daily as needed for Nausea. orphenadrin 3-0 Yes 100mg Q.5D Take [address] [facility] [address] [facility] (NORFLEX) 8-17 tablet [facility] 100 mg 11:24: (100 mg Medical tablet 00 total) by Center mouth 2 (two) times daily. potassium 3-0 Yes 20meq Q.5D Take [address] [address] chloride 8-17 mEq by [facility] (KLOR-CON) 11:24: mouth 2 Medi nereida 20 mEq 00 (two) Center packet times daily. propranoloL 2023-0 Yes 10mg Q.[id number] Take [address] (INDERAL) 8-17 [id number] tablet (10 [facility] 10 MG 11:24: 3D [...] Pain. Max Daily Amount: 200 mg traZODone 3-0 Yes 100mg QD Take 1 [facility] [...] inhaler (two) times daily. cholecalcif 2022-0 Yes [id number] Q7D Take [address] juan, [...] by Cent er tablet mouth daily. hydrOXYzine 3-0 Yes 50mg Take [address] [facility] [address] (ATARAX) 25 8-17 tablets [facility] MG tablet 11:24: (50 mg Medica l 00 total) by Center mouth 3 (three) times daily as needed for Itching. losartan 3-0 Yes 100mg QD Take [address] [facility] [...] 00 (two) Center packet times daily. propranoloL 202-0 Yes 10mg Q.[id number] Take [address] [facility] [address] (INDERAL) 8-17 [id number] tablet (10 [facility] 10 MG 11:24: 3D [...] inhaler (two) times daily. cholecalcif 2022-0 Yes [id number] Q7D Take [address] juan, [...] 68 mg 00 once. Center implant albuterol 2022-0 Yes 1{puff} Inhale 1 C [...] inhaler (two) times daily. cholecalcif 2022-0 Yes [id number] Q7D Take [address] juan, [...] times daily as needed for Itching. losartan 3-0 Yes 100mg QD Take [address] [facility] [...] times daily as needed for Nausea. orphenadrin 3-0 Yes 100mg Q.5D Take [address] [facility] [facility] (NORFLEX) 8-17 tablet [facility] 100 mg 11:24: (100 mg Medical tablet 00 total) by Center mouth 2 (two) times daily. potassium 2023-0 Yes 20meq Q.5D Take [address] chloride 8-17 mEq by [facility] (KLOR-CON) 11:24: mouth 2 Medi nereida 20 mEq 00 (two) Center packet times daily. propranoloL 2023-0 Yes 10mg Q.[id number] Take [address] [facility] [address] (INDERAL) 8-17 [id number] tablet (10 [facility] 10 MG 11:24: 3D [...] packet times daily. propranoloL 2023-0 Yes 10mg Q.[id number] Take [address] [facility] [address] (INDERAL) 8-17 [id number] tablet (10 [facility] 10 MG 11:24: 3D [...] inhaler (two) times daily. cholecalcif 2022-0 Yes [id number] Q7D Take [address] juan, [...] mouth. [facility] 11:24: Medical 00 Center etonogestre 2023-0 Yes 68mg 68 mg by CH I [...] packet times daily. propranoloL 2022-0 Yes 10mg Q.[id number] Take [address] (INDERAL) 8-17 [id number] tablet (10 [facility] 10 MG 11:24: 3D [...] 00 total) by Center mouth daily. budesonide 0 Yes 1{puff} Q.5D Inhale [address] (PULMICORT) 8-17 puff by [facility] 180 11:24: mouth via Medical mcg/actuati [address] on inhaler (two) times daily. cholecalcif 0 Yes [id number] Q7D Take [address] juan, 8-17 tablet [facility] vitamin D3, 11:24: (50,000 Med ical 1,250 mcg 00 Units Center (50,000 total) by unit) Tab mouth once a week. cyanocobala 0 Yes 100ug QD Take [address] min 8-17 tablet [facility] (VITAMIN 11:24: (100 mcg Medic al B-12) 100 00 total) by Cente r MCG tablet mouth daily. 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 Nebulizers 2022-0 Yes See Admin Jc bangura (Vios LC 02-21 Instructio Seybo ld Plus) does 00:00: ns. - not apply 00 Externa Misc l Albuterol 0 Yes INHALE ONE Jc bangura (PROVENTIL) 02-21 (1) VIAL Seyb old (2.5 00:00: VIA - MG/3ML) 00 NEBULIZER Externa 0.083% EVERY l inhalation EIGHT Inhalant HOURS Solution NEEDED. 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5 mg - oral 00 total) by Externa Capsule mouth l daily Propranolol 2023-0 Yes [id number] 10mg Take 1 Jelena HCl 10 MG 6-21 tablet (10 Seyb old oral Tablet 00:00: mg total) - 00 by mouth 3 Externa times l daily Potassium 2023-0 Yes [id number] 1{tbl} Take 1 Jelena Chloride ER 6-21 tablet by Sey bold 20 MEQ oral 00:00: mouth - Tab CR 00 daily Externa l Propranolol 2023-0 Yes [id number] 10mg Take 1 Jelena HCl 10 MG 6-21 tablet (10 Seyb old oral Tablet 00:00: mg total) - 00 by mouth 3 Externa times l daily Budesonide 2023-0 Yes [id number] Inhale 2 Jelena 90 MCG/ACT 6-21 inhalation Sey bold inhalation 00:00: s into the - AEROSOL 00 lungs Externa POWDER, daily l BREATH ACTIVATED hydroCHLORO 2023-0 Yes [id number] 12.5mg Take 1 Jelena thiazide 6-21 capsule Seybold 12.5 MG 00:00: (12.5 mg - oral 00 total) by Externa Capsule mouth l daily Potassium 2023-0 Yes [id number] 1{tbl} Take 1 Jelena Chloride ER 6-21 tablet by Sey bold 20 MEQ oral 00:00: mouth - Tab CR 00 daily Externa l Propranolol 2023-0 Yes [id number] 10mg Take 1 Jelena HCl 10 MG 6-21 tablet (10 Seyb old oral Tablet 00:00: mg total) - 00 by mouth 3 Externa times l daily Budesonide 2023-0 Yes [id number] Inhale 2 Jelena 90 MCG/ACT 6-21 inhalation Sey bold inhalation 00:00: s into the - AEROSOL 00 lungs Externa POWDER, daily l BREATH ACTIVATED hydroCHLORO 2023-0 Yes [id number] 12.5mg Take 1 Jelena thiazide 6-21 capsule Seybold 12.5 MG 00:00: (12.5 mg - oral 00 total) by Externa Capsule mouth l daily Propranolol 2023-0 Yes [id number] 10mg Take 1 Jelena HCl 10 MG 6-21 tablet (10 Seyb old oral Tablet 00:00: mg total) - 00 by mouth 3 Externa times l daily hydroCHLORO 3-0 Yes [id number] 12.5mg Take 1 Jelena thiazide 6-21 capsule Seybold 12.5 MG 00:00: (12.5 mg - oral 00 total) by Externa Capsule mouth l daily Propranolol 2022-0 Yes [id number] 10mg Take 1 Jelena HCl 10 MG 6-21 tablet (10 Seyb old oral Tablet 00:00: mg total) - 00 by mouth 3 Externa times l daily hydroCHLORO 3-0 Yes [id number] 12.5mg Take 1 Jelena thiazide 6-21 capsule Seybold 12.5 MG 00:00: (12.5 mg - oral 00 total) by Externa Capsule mouth l daily Budesonide 2022-0 2022- No [id number] Inhale 2 Jelena 90 MCG/ACT 6-21 08-25 inhalation Se ybold inhalation 00:00: 00:00 s into the - AEROSOL 00 :00 lungs Externa POWDER, daily l BREATH ACTIVATED Meclizine 2022-0 Yes [id number] TAKE ONE Jelena HCl 25 MG 6-19 (1) Seybold oral Tablet 00:00: TABLET(S) - 00 BY MOUTH Externa THREE l TIMES A DAY NEEDED. Meclizine 2022-0 Yes [id number] TAKE ONE Jelena HCl 25 MG 6-19 (1) Seybold oral Tablet 00:00: TABLET(S) - 00 BY MOUTH Externa THREE l TIMES A DAY NEEDED. Gabapentin 2022-0 Yes [id number] 100mg Take 1 Jelena 100 MG oral 6-18 capsule Seybo ld Capsule 00:00: (100 mg - 00 total) by Externa mouth 3 l times daily Gabapentin 2022-0 2023- No [id number] 100mg Take 1 Jelena 100 MG oral 6-18 07-12 capsule Seyb old Capsule 00:00: 00:00 (100 mg - 00 :00 total) by Externa mouth 3 l times daily Losartan 3-0 Yes [id number] 100mg Take 1 Ke lsey Potassium 6-05 tablet Seybold (COZAAR) 00:00: (100 mg - 100 MG oral 00 total) by Ext jonathan Tablet mouth l daily Losartan 2022-0 Yes [id number] 100mg Take 1 Ke lsey Potassium 6-05 tablet Seybold (COZAAR) 00:00: (100 mg - 100 MG oral 00 total) by Ext jonathan Tablet mouth l daily Losartan 0 Yes [id number] 100mg Take 1 Ke lsey Potassium 6-05 tablet Seybold (COZAAR) 00:00: (100 mg - 100 MG oral 00 total) by Ext jonathan Tablet mouth l daily Metoclopram 0 Yes 10mg Take 1 Ashlie ey jonathan HCl 5-31 tablet (10 Seybol d (Reglan) 10 10:58: mg total) - MG oral 34 by mouth 4 [employer] Apprentice Arc a Tablet times l daily Dicyclomine 0 [...] po q 12 hrs, Meclizine 0 Yes [id number] TAKE ONE Jelena HCl 25 MG 5-22 (1) Seybold oral Tablet 00:00: TABLET(S) - 00 BY MOUTH Externa THREE l TIMES A DAY NEEDED. Meclizine 0 2022- No [id number] TAKE ONE Jelena HCl 25 MG 5-22 06-19 (1) Seybold oral Tablet 00:00: 00:00 TABLET(S) - 00 :00 BY MOUTH Externa THREE l TIMES A DAY NEEDED. Losartan Yes [id number] 1{tbl} Take 1 K elsey Potassium-H 5-15 tablet by Sey bold CTZ 50-12.5 00:00: mouth - MG oral 00 daily Externa Tablet l Gabapentin 2022-0 Yes [id number] 100mg Take 1 Jelena 100 MG oral 5-15 capsule Seybo ld Capsule 00:00: (100 mg - 00 total) by Externa mouth 3 l times daily Gabapentin 3-0 2023- No [id number] 100mg Take 1 Jelena 100 MG oral 5-15 06-16 capsule Seyb old Capsule 00:00: 00:00 (100 mg - 00 :00 total) by Externa mouth 3 l times daily Cholecalcif 2023-0 Yes Jelena juan 5-06 Seybold (Vitamin 00:00: - D3) 1.25 MG 00 Externa (89994 UT) l oral Capsule Cholecalcif 2023-0 Yes Jelena juan 5-06 Seybold (Vitamin 00:00: - D3) 1.25 MG 00 Externa (16258 UT) l oral Capsule Cholecalcif 2023-0 Yes Jelena juan 5-06 Seybold (Vitamin 00:00: - D3) 1.25 MG 00 Externa (69997 UT) l oral Capsule Cholecalcif 3-0 Yes TAKE ONE Ke lsey juan 5-06 (1) Seybold (Vitamin 00:00: CAPSULE(S) - D3) 1.25 MG 00 BY MOUTH Exte rna (15895 UT) TWICE A l oral WEEK. Capsule Cholecalcif 2023-0 Yes TAKE ONE Ke lsey juan 5-06 (1) Seybold (Vitamin 00:00: CAPSULE(S) - D3) 1.25 MG 00 BY MOUTH Exte rna (26932 UT) TWICE A l oral WEEK. Capsule Cholecalcif 3-0 Yes TAKE ONE Ke lsey juan 5-06 (1) Seybold (Vitamin 00:00: CAPSULE(S) - D3) 1.25 MG 00 BY MOUTH Exte rna ([id number] UT) TWICE A l oral WEEK. Capsule Cholecalcif 2023-0 Yes Jelena juan 5-06 Seybold (Vitamin 00:00: - D3) 1.25 MG 00 Externa ([id number] UT) l oral Capsule Trazodone 3-0 2023- No [id number] 100mg Take 1 Jelena HCl 100 MG 5-01 05-01 tablet Seybol d oral Tablet 11:10: 00:00 (100 mg - 14 :00 total) by Externa mouth at l bedtime Cyanocobala 2022-0 Yes Take by Reynold sey min 5-01 mouth Seybold (VITAMIN B 09:56: - 12 OR) 28 Externa l Tramadol 2022-0 Yes [id number] 50mg Q.25D Take 1 K elsey HCl 5-01 tablet (50 Seybold (ULTRAM) 50 00:00: mg total) - MG oral 00 by mouth Externa Tablet every 6 l hours as needed for pain Tramadol 2022-0 Yes [id number] 50mg Q.25D Take 1 K elsey HCl 5-01 tablet (50 Seybold (ULTRAM) 50 00:00: mg total) - MG oral 00 by mouth Externa Tablet every 6 l hours as needed for pain Tramadol 2022-0 Yes [id number] 50mg Q.25D Take 1 K elsey HCl 5-01 tablet (50 Seybold (ULTRAM) 50 00:00: mg total) - MG oral 00 by mouth Externa Tablet every 6 l hours as needed for pain Tramadol 2022-0 Yes [id number] 50mg Q.25D Take 1 K elsey HCl 5-01 tablet (50 Seybold (ULTRAM) 50 00:00: mg total) - MG oral 00 by mouth Externa Tablet every 6 l hours as needed for pain Tramadol 2022-0 2023- No [id number] 50mg Q.25D Take 1 Jelena HCl 5-01 [...] - 00 Externa l hydrOXYzine 2023-0 Yes Jelnea HCl 25 MG 4-26 Seybold oral Tablet [...] - 00 Externa l Trazodone 3-0 Yes [id number] 100mg Take 1 K elsey HCl 100 MG 4-24 tablet Seybold oral Tablet 08:55: (100 mg - 22 total) by Externa mouth at l bedtime Cyanocobala 2022-0 Yes Take by Reynold sey min 4-24 mouth Seybold (VITAMIN B 08:55: - 12 OR) 22 Externa l Albuterol 2022-0 Yes [id number] 2{puff} Q.25D Inhale 2 Jelena HFA 108 (90 4-24 puffs into Se [facility] [employer]) 00:00: the lungs - MCG/ACT IN 00 every 6 [employer] AERS hours as l needed for wheezing or shortness of breath Albuterol 2023-0 Yes [id number] 2{puff} Q.25D Inhale 2 Jelena HFA 108 (90 4-24 puffs into [employer]) 00:00: the lungs - MCG/ACT IN 00 every 6 [employer] AERS hours as l needed for wheezing or shortness of breath Albuterol 2023-0 Yes [id number] 2{puff} Q.25D Inhale 2 Jelena HFA 108 (90 4-24 puffs into [employer]) 00:00: the lungs - MCG/ACT IN 00 every 6 [employer] AERS hours as l needed for wheezing or shortness of breath Albuterol 2023-0 Yes [id number] 2{puff} Q.25D Inhale 2 Jelena HFA 108 (90 4-24 puffs into [employer]) 00:00: the lungs - MCG/ACT IN 00 every 6 [employer] AERS hours as l needed for wheezing or shortness of breath Meclizine 2022-0 Yes [id number] TAKE ONE Jelena HCl 25 MG 4-24 (1) Seybold oral Tablet 00:00: TABLET(S) - 00 BY MOUTH Externa THREE l TIMES A DAY NEEDED. Albuterol 2022-0 Yes [id number] 2{puff} Q.25D Inhale 2 Jelena HFA 108 (90 4-24 puffs into [employer]) 00:00: the lungs - MCG/ACT IN 00 every 6 [employer] hours as l needed for wheezing or shortness of breath Albuterol 2022-0 Yes [id number] 2{puff} Q.25D Inhale 2 Jelena HFA 108 (90 4-24 puffs into [employer]) 00:00: the lungs - MCG/ACT IN 00 every 6 [employer] hours as l needed for wheezing or shortness of breath Albuterol 2022-0 Yes [id number] 2{puff} Q.25D Inhale 2 Jelena HFA 108 (90 4-24 puffs into [employer]) 00:00: the lungs - MCG/ACT IN 00 every 6 [employer] hours as l needed for wheezing or shortness of breath Albuterol 3-0 Yes [id number] 2{puff} Q.25D Inhale 2 Jelena HFA 108 (90 4-24 puffs into [employer]) 00:00: the lungs - MCG/ACT IN 00 every 6 [employer] hours as l needed for wheezing or shortness of breath Albuterol 3-0 Yes [id number] 2{puff} Q.25D Inhale 2 Jelena HFA 108 (90 4-24 puffs into [employer]) 00:00: the lungs - MCG/ACT IN 00 every 6 [employer] hours as l needed for wheezing or shortness of breath Albuterol 3-0 Yes [id number] 2{puff} Q.25D Inhale 2 Jelena HFA 108 (90 4-24 puffs into [employer]) 00:00: the lungs - MCG/ACT IN 00 every 6 [employer] hours as l needed for wheezing or shortness of breath Cyclobenzap 2023-0 Yes 10mg Q.[id number] Take 1 Jelena rine HCl 10 4-22 [id number] tablet (10 Seybold MG oral 00:00: 3D mg total) - Tablet 00 by mouth Externa every 8 l hours as needed. Cyclobenzap 2023-0 Yes 10mg Q.[id number] Take 1 Jelena rine HCl 10 4-22 [id number] tablet (10 Seybold MG oral 00:00: 3D mg total) - Tablet 00 by mouth Externa every 8 l hours as needed. Cyclobenzap 2023-0 Yes 10mg Q.[id number] Take 1 Jelena rine HCl 10 4-22 [id number] tablet (10 Seybold MG oral 00:00: 3D mg total) - Tablet 00 by mouth Externa every 8 l hours as needed. Cyclobenzap 2023-0 Yes 10mg Q.[id number] Take 1 Jelena rine HCl 10 4-22 [id number] tablet (10 Seybold MG oral 00:00: 3D mg total) - Tablet 00 by mouth Externa every 8 l hours as needed Cyclobenzap 2023-0 Yes 10mg Q.[id number] Take 1 Jelena rine HCl 10 4-22 [id number] tablet (10 Seybold MG oral 00:00: 3D mg total) - Tablet 00 by mouth Externa every 8 l hours as needed Cyclobenzap 2023-0 Yes 10mg Q.[id number] Take 1 Jelena rine HCl 10 4-22 [id number] tablet (10 Seybold MG oral 00:00: 3D mg total) - Tablet 00 by mouth Externa every 8 l hours as needed Cyclobenzap 2023-0 Yes 10mg Q.[id number] Take 1 Jelena rine HCl 10 4-22 [id number] tablet (10 Seybold MG oral 00:00: 3D mg total) - Tablet 00 by mouth Externa every 8 l hours as needed Cyclobenzap 2023-0 Yes 10mg Q.[id number] Take 1 Jelena rine HCl 10 4-22 [id number] tablet (10 Seybold MG oral 00:00: 3D mg total) - Tablet 00 by mouth Externa every 8 l hours as needed Cyclobenzap 2023-0 Yes 10mg Q.[id number] Take 1 Jelena rine HCl 10 4-22 [id number] tablet (10 Seybold MG oral 00:00: 3D mg total) - Tablet 00 by mouth Externa every 8 l hours as needed Cyclobenzap 2023-0 Yes 10mg Q.[id number] Take 1 Jelena rine HCl 10 4-22 [id number] tablet (10 Seybold MG oral 00:00: 3D mg total) - Tablet 00 by mouth Externa every 8 l hours as needed. Gabapentin 2023-0 Yes [id number] 100mg Take 1 Jelena 100 MG oral 4-20 capsule Seybo ld Capsule 00:00: (100 mg - 00 total) by Externa mouth 3 l times daily Gabapentin 2023-0 Yes [id number] 100mg Take 1 Jelena 100 MG oral [...] Externa at l bedtime. Trazodone 2023-0 Yes [id number] 100mg Take 1 K elsey HCl 100 MG 4-13 tablet Seybold oral Tablet 10:58: (100 mg - 09 total) by Externa mouth at l bedtime Cyanocobala 3-0 Yes Take by Reynold sey min 4-13 mouth Seybold (VITAMIN B 10:58: - 12 OR) 09 Externa l Trazodone 3-0 Yes [id number] 100mg Take 1 K elsey HCl 100 MG 4-10 tablet Seybold oral Tablet 11:00: (100 mg - 07 total) by Externa mouth at l bedtime Cyanocobala 3-0 Yes Take by Reynold sey min 4-10 mouth Seybold (VITAMIN B 11:00: - 12 OR) 07 Externa l Orphenadrin 3-0 Yes 100mg Q.5D Take 1 [...] Release daily as needed. Propranolol 2023-0 Yes [id number] TAKE ONE Jelena HCl 10 MG 4-10 (1) Seybold oral Tablet 00:00: TABLET(S) - 00 BY MOUTH Externa THREE l TIMES A DAY. Propranolol 2023-0 Yes [id number] TAKE ONE Jelena HCl 10 MG 4-10 [...] Release daily as needed Propranolol 2023-0 Yes [id number] TAKE ONE Jelena HCl 10 MG 4-10 [...] Release daily as needed Propranolol 2023-0 Yes [id number] TAKE ONE Jeelna HCl 10 MG 4-10 (1) Seybold oral [...] times Release daily as needed. Propranolol 2022-0 3- No [id number] TAKE ONE Jelena HCl 10 MG 4-10 06-21 (1) Seybold oral Tablet 00:00: 00:00 TABLET(S) - 00 :00 BY MOUTH Externa THREE l TIMES A DAY. Meloxicam 3-0 Yes [id number] 15mg Take 1 Jelena 15 MG oral 4-06 tablet (15 Sey bold Tablet 00:00: mg total) - 00 by mouth Externa daily l Meloxicam 3-0 Yes [id number] 15mg Take 1 Jelena 15 MG oral 4-06 tablet (15 Sey bold Tablet 00:00: mg total) - 00 by mouth Externa daily l Meloxicam 3-0 Yes [id number] 15mg Take 1 Jelena 15 MG oral 4-06 tablet (15 Sey bold Tablet 00:00: mg total) - 00 by mouth Externa daily l Meloxicam 3-0 Yes [id number] 15mg Take 1 Jelena 15 MG oral 4-06 tablet (15 Sey bold Tablet 00:00: mg total) - 00 by mouth Externa daily l Meloxicam 2023-0 Yes [id number] 15mg Take 1 Jelena 15 MG oral 4-06 tablet (15 Sey bold Tablet 00:00: mg total) - 00 by mouth Externa daily l Meloxicam 2023-0 Yes [id number] 15mg Take 1 Jelena 15 MG oral 4-06 tablet (15 Sey bold Tablet 00:00: mg total) - 00 by mouth Externa daily l Meloxicam 2023-0 Yes [id number] 15mg Take 1 Jelena 15 MG oral 4-06 tablet (15 Sey bold Tablet 00:00: mg total) - 00 by mouth Externa daily l Meloxicam 2023-0 Yes [id number] 15mg Take 1 Jelena 15 MG oral 4-06 tablet (15 Sey bold Tablet 00:00: mg total) - 00 by mouth Externa daily l Meloxicam 2023-0 Yes [id number] 15mg Take 1 Jelena 15 MG oral 4-06 tablet (15 Sey bold Tablet 00:00: mg total) - 00 by mouth Externa daily l Meloxicam 2023-0 2023- No [id number] 15mg Take 1 Jelena 15 MG oral [...] mouth l every morning. Meclizine 2023-0 Yes [id number] TAKE ONE Jelena HCl 25 MG 3-24 (1) Seybold oral Tablet 00:00: TABLET(S) - 00 BY MOUTH Externa THREE l TIMES A DAY NEEDED. Meclizine 2023-0 Yes [id number] TAKE ONE Jelena HCl 25 MG 3-24 (1) Seybold oral Tablet 00:00: TABLET(S) - 00 BY MOUTH Externa THREE l TIMES A DAY NEEDED. Meclizine 2023-0 Yes [id number] TAKE ONE Jelena HCl 25 MG 3-24 (1) Seybold oral Tablet 00:00: TABLET(S) - 00 BY MOUTH Externa THREE l TIMES A DAY NEEDED. Losartan 2022-0 Yes [id number] 1{tbl} Take 1 K elsey Potassium-H 3-22 tablet by Sey bold CTZ 50-12.5 00:00: mouth - MG oral 00 daily Externa Tablet l Losartan 3-0 Yes [id number] 1{tbl} Take 1 K elsey Potassium-H 3-22 tablet by Sey bold CTZ 50-12.5 00:00: mouth - MG oral 00 daily Externa Tablet l Losartan 2023-0 Yes [id number] 1{tbl} Take 1 K elsey Potassium-H 3-22 tablet by Sey bold CTZ 50-12.5 00:00: mouth - MG oral 00 daily Externa Tablet l Losartan 2023-0 Yes [id number] 1{tbl} Take 1 K elsey Potassium-H 3-22 tablet by Sey bold CTZ 50-12.5 00:00: mouth - MG oral 00 daily Externa Tablet l Propranolol 2022- No [id number] TAKE ONE Jelena HCl 10 MG 3-10 04-10 (1) Seybold oral Tablet 00:00: 00:00 TABLET(S) - 00 :00 BY MOUTH Externa THREE l TIMES A DAY. Cholecalcif 2022- No [id number] 46480M Take 1 Jelena juan 1.25 3-02 04-10 capsule Seybol d MG ([id number] 00:00: 00:00 (50,000 - UT) oral 00 :00 units Externa Capsule total) by l mouth twice a week for 8 doses Trazodone 0 Yes [id number] 100mg Take 100 Jelena HCl 100 MG 2-28 mg by Seybold oral Tablet 09:11: mouth at - 07 bedtime Externa l Cyanocobala Yes Take by Reynold woodard min 2-28 mouth Seybold (VITAMIN B 09:11: [...] A l DAY. hydrOXYzine 2023-0 Yes 50mg Q.[id number] Take 1 Jelena HCl 50 MG 2-13 [id number] tablet (50 Seybold oral Tablet 00:00: 3D mg total) - 00 by mouth Externa every 8 l hours as needed. hydrOXYzine 2023-0 Yes 50mg Q.[id number] Take 1 Jelena HCl 50 MG 2-13 [id number] tablet (50 Seybold oral Tablet 00:00: 3D mg total) - 00 by mouth Externa every 8 l hours as needed. hydrOXYzine 2023-0 Yes 50mg Q.[id number] Take 1 Jelena HCl 50 MG 2-13 [id number] tablet (50 Seybold oral Tablet 00:00: 3D mg total) - 00 by mouth Externa every 8 l hours as needed. hydrOXYzine 2023-0 Yes 50mg Q.12208926 Take 1 Jelena HCl 50 MG 2-13 [id number] tablet (50 Seybold oral Tablet 00:00: 3D mg total) - 00 by mouth Externa every 8 l hours as needed hydrOXYzine 2023-0 Yes 50mg Q.[id number] Take 1 Jelena HCl 50 MG 2-13 [id number] tablet (50 Seybold oral Tablet 00:00: 3D mg total) - 00 by mouth Externa every 8 l hours as needed hydrOXYzine 2023-0 Yes 50mg Q.27820395 Take 1 Jelena HCl 50 MG 2-13 [id number] tablet (50 Seybold oral Tablet 00:00: 3D mg total) - 00 by mouth Externa every 8 l hours as needed hydrOXYzine 2023-0 Yes 50mg Q.[id number] Take 1 Jelena HCl 50 MG 2-13 [id number] tablet (50 Seybold oral Tablet 00:00: 3D mg total) - 00 by mouth Externa every 8 l hours as needed hydrOXYzine 2023-0 Yes 50mg Q.[id number] Take 1 Jelena HCl 50 MG 2-13 [id number] tablet (50 Seybold oral Tablet 00:00: 3D mg total) - 00 by mouth Externa every 8 l hours as needed hydrOXYzine 2022-0 Yes 50mg Q.[id number] Take 1 Jelena HCl 50 MG 2-13 [id number] tablet (50 Seybold oral Tablet 00:00: 3D mg total) - 00 by mouth Externa every 8 l hours as needed. hydrOXYzine 2022-0 Yes 50mg Q.[id number] Take 1 Jelena HCl 50 MG 2-13 [id number] tablet (50 Seybold oral Tablet 00:00: 3D mg total) - 00 by mouth Externa every 8 l hours as needed. Losartan 0 Yes [id number] 1{tbl} Take 1 K elsey Potassium-H 2-10 tablet by [employer] bold CTZ 50-12.5 00:00: mouth - MG oral 00 daily Externa Tablet l Meclizine 2022-0 Yes [id number] 25mg Q.[id number] Take 1 Jelena HCl 25 MG 2-10 [id number] tablet (25 Seybold oral Tablet 00:00: 3D mg total) - 00 by mouth 3 Externa times l daily as needed Propranolol 2022-0 Yes [id number] 10mg Take 1 Jelena HCl 10 MG 2-10 tablet (10 Seyb old oral Tablet 00:00: mg total) - 00 by mouth 3 Externa times l daily Losartan 2022-0 Yes [id number] 1{tbl} Take 1 K elsey Potassium-H 2-10 tablet by [employer] bold CTZ 50-12.5 00:00: mouth - MG oral 00 daily Externa Tablet l Meclizine 2022-0 Yes [id number] 25mg Q.[id number] Take 1 Jelena HCl 25 MG 2-10 [id number] tablet (25 Seybold oral Tablet 00:00: 3D mg total) - 00 by mouth 3 Externa times l daily as needed Propranolol 2022-0 Yes [id number] 10mg Take 1 Jelena HCl 10 MG 2-10 tablet (10 Seyb old oral Tablet 00:00: mg total) - 00 by mouth 3 Externa times l daily Doxycycline 2022-0 Yes [id number] 100mg Take 1 Jelena Hyclate 100 1-31 tablet Seybol d MG oral 00:00: (100 mg - Tablet 00 total) by Externa mouth 2 l times daily Doxycycline 2022- No [id number] 100mg Take 1 Jelena Hyclate 100 1-31 02-28 tablet Seybo ld MG oral 00:00: 00:00 (100 mg - Tablet 00 :00 total) by Externa mouth 2 l times daily Trulicity Yes [id number] .75mg Inject Jelena 0.75 1-28 0.75 mg Seybold MG/0.5ML 00:00: into the - subcutaneou 00 skin once Ext jonathan s Solution a week l Pen-injecto r Trulicity Yes [id number] .75mg Inject Jelena 0.75 1-28 0.75 mg Seybold MG/0.5ML 00:00: into the - subcutaneou 00 skin once Ext jonathan s Solution a week l Pen-injecto r Trulicity Yes [id number] .75mg Inject Jelena 0.75 1-28 0.75 mg Seybold MG/0.5ML 00:00: into the - subcutaneou 00 skin once Ext jonathan s Solution a week l Pen-injecto r Trulicity Yes [id number] .75mg Inject Jelena 0.75 1-28 0.75 mg Seybold MG/0.5ML 00:00: into the - subcutaneou 00 skin once Ext jonathan s Solution a week l Pen-injecto r Aripiprazol 2022- No Kelse y e 20 MG 1-25 01-25 Seybold oral Tablet 11:11: 00:00 - 39 :00 Externa l Aripiprazol 2022- No [id number] 10mg Take 10 mg Jelena e 10 MG 1-25 01-25 by mouth 2 Seybo ld oral Tablet 11:11: 00:00 times - 26 :00 daily Externa l Trazodone Yes [id number] 100mg Take 100 Jelena HCl 100 MG 1-25 mg by Seybold oral Tablet 10:31: mouth at - 22 bedtime Externa l Cyanocobala Yes Take by Reynold sey min 1-25 mouth Seybold (VITAMIN B 10:31: - 12 OR) 22 Externa l Trazodone Yes [id number] 100mg Take 100 Jelnea HCl 100 MG 1-25 mg by Seybold oral Tablet 10:31: mouth at - 22 bedtime Externa l Cyanocobala Yes Take by Reynold sey min 1-25 mouth Seybold (VITAMIN B 10:31: - 12 OR) 22 Externa l hydroCHLORO 0 Yes [id number] 12.5mg Take 1 Jelena thiazide 1-25 capsule Seybold 12.5 MG 00:00: (12.5 mg - oral 00 total) by Externa Capsule mouth l daily Ondansetron 0 Yes [id number] 4mg Q.[id number] Take 1 Jelena (ZOFRAN) 4 1-25 [id number] tablet (4 Seybold MG oral 00:00: 3D mg total) - TABLET 00 by mouth Externa DISPERSIBLE every 8 l hours as needed for nausea Tirzepatide Yes [id number] 2.5mg Inject 0.5 Jelena (Mounjaro) 1-25 mL (2.5 mg Sey bold 2.5 00:00: total) - MG/0.5ML 00 into the Externa subcutaneou skin once l s Solution a week Pen-injecto r Celecoxib Yes [id number] 200mg Take 1 Jelena (CeleBREX) 1-25 capsule Seybol d 200 MG oral 00:00: (200 mg - Capsule 00 total) by Externa mouth 2 l times daily Gabapentin 0 Yes [id number] 100mg Take 1 Jelena 100 MG oral 1-25 capsule Seybo ld Capsule 00:00: (100 mg - 00 total) by Externa mouth 3 l times daily Ondansetron 0 Yes [id number] 4mg Q.[id number] Take 1 Jelena (ZOFRAN) 4 1-25 [id number] tablet (4 Seybold MG oral 00:00: 3D mg total) - TABLET 00 by mouth Externa DISPERSIBLE every 8 l hours as needed for nausea Ondansetron 0 Yes [id number] 4mg Q.[id number] Take 1 Jelena (ZOFRAN) 4 1-25 [id number] tablet (4 Seybold MG oral 00:00: 3D mg total) - TABLET 00 by mouth Externa DISPERSIBLE every 8 l hours as needed for nausea Ondansetron 2023-0 Yes [id number] 4mg Q.[id number] Take 1 Jelena (ZOFRAN) 4 1-25 [id number] tablet (4 Seybold MG oral 00:00: 3D mg total) - TABLET 00 by mouth Externa DISPERSIBLE every 8 l hours as needed for nausea Celecoxib 3-0 Yes [id number] 200mg Take 1 Jelena (CeleBREX) 1-25 capsule Seybol d 200 MG oral 00:00: (200 mg - Capsule 00 total) by Externa mouth 2 l times daily Gabapentin 3-0 Yes [id number] 100mg Take 1 Jelena 100 MG oral 1-25 capsule Seybo ld Capsule 00:00: (100 mg - 00 total) by Externa mouth 3 l times daily Ondansetron 3-0 Yes [id number] 4mg Q.[id number] Take 1 Jelena (ZOFRAN) 4 1-25 [id number] tablet (4 Seybold MG oral 00:00: 3D mg total) - TABLET 00 by mouth Externa DISPERSIBLE every 8 l hours as needed for nausea Celecoxib 3-0 Yes [id number] 200mg Take 1 Jelena (CeleBREX) 1-25 capsule Seybol d 200 MG oral 00:00: (200 mg - Capsule 00 total) by Externa mouth 2 l times daily Gabapentin 3-0 Yes [id number] 100mg Take 1 Jelena 100 MG oral 1-25 capsule Seybo ld Capsule 00:00: (100 mg - 00 total) by Externa mouth 3 l times daily Ondansetron 3-0 Yes [id number] 4mg Q.[id number] Take 1 Jelena (ZOFRAN) 4 1-25 [id number] tablet (4 Seybold MG oral 00:00: 3D mg total) - TABLET 00 by mouth Externa DISPERSIBLE every 8 l hours as needed for nausea Gabapentin 3-0 Yes [id number] 100mg Take 1 Jelena 100 MG oral 1-25 capsule Seybo ld Capsule 00:00: (100 mg - 00 total) by Externa mouth 3 l times daily Ondansetron 2023-0 Yes [id number] 4mg Q.[id number] Take 1 Jelena (ZOFRAN) 4 1-25 [id number] tablet (4 Seybold MG oral 00:00: 3D mg total) - TABLET 00 by mouth Externa DISPERSIBLE every 8 l hours as needed for nausea Gabapentin 2023-0 Yes [id number] 100mg Take 1 Jelena 100 MG oral 1-25 capsule Seybo ld Capsule 00:00: (100 mg - 00 total) by Externa mouth 3 l times daily Ondansetron 2023-0 Yes [id number] 4mg Q.[id number] Take 1 Jelena (ZOFRAN) 4 1-25 [id number] tablet (4 Seybold MG oral 00:00: 3D mg total) - TABLET 00 by mouth Externa DISPERSIBLE every 8 l hours as needed for nausea Ondansetron 2023-0 Yes [id number] 4mg Q.[id number] Take 1 Jelena (ZOFRAN) 4 1- [id number] tablet (4 Seybold MG oral 00:00: 3D mg total) - TABLET 00 by mouth Externa DISPERSIBLE every 8 l hours as needed for nausea Ondansetron 2023-0 Yes [id number] 4mg Q.[id number] Take 1 Jelena (ZOFRAN) 4 1-25 [id number] tablet (4 Seybold MG oral 00:00: 3D mg total) - TABLET 00 by mouth Externa DISPERSIBLE every 8 l hours as needed for nausea Ondansetron 2023-0 Yes [id number] 4mg Q.[id number] Take 1 Jelena (ZOFRAN) 4 1-25 [id number] tablet (4 Seybold MG oral 00:00: 3D mg total) - TABLET 00 by mouth Externa DISPERSIBLE every 8 l hours as needed for nausea Ondansetron 2023-0 Yes [id number] 4mg Q.[id number] Take 1 Jelena (ZOFRAN) 4 1-25 [id number] tablet (4 Seybold MG oral 00:00: 3D mg total) - TABLET 00 by mouth Externa DISPERSIBLE every 8 l hours as needed for nausea Ondansetron 2023-0 Yes [id number] 4mg Q.[id number] Take 1 Jelena (ZOFRAN) 4 1-25 [id number] tablet (4 Seybold MG oral 00:00: 3D mg total) - TABLET 00 by mouth Externa DISPERSIBLE every 8 l hours as needed for nausea Ondansetron 2022-0 Yes [id number] 4mg Q.[id number] Take 1 Jelena (ZOFRAN) 4 1-25 [id number] tablet (4 Seybold MG oral 00:00: 3D mg total) - TABLET 00 by mouth Externa DISPERSIBLE every 8 l hours as needed for nausea Ondansetron 2022-0 Yes [id number] 4mg Q.[id number] Take 1 Jelena (ZOFRAN) 4 1-25 [id number] tablet (4 Seybold MG oral 00:00: 3D mg total) - TABLET 00 by mouth Externa DISPERSIBLE every 8 l hours as needed for nausea hydroCHLORO 2022-0 2023- No [id number] 12.5mg Take 1 Jelena thiazide 25 02-10 [...] Implant 00 Externa l Docusate 0 Yes [id number] 100mg Take 1 Ke lsey Sodium 1-13 capsule Seybold (Colace) 00:00: (100 mg - 100 MG oral 00 total) by Ext jonathan Capsule mouth l daily Docusate 2022-0 Yes [id number] 100mg Take 1 Ke lsey Sodium 1-13 capsule Seybold (Colace) 00:00: (100 mg - 100 MG oral 00 total) by Ext jonathan Capsule mouth l daily Docusate 2022-0 Yes [id number] 100mg Take 1 Ke lsey Sodium 1-13 capsule Seybold (Colace) 00:00: (100 mg - 100 MG oral 00 total) by Ext jonathan Capsule mouth l daily Ferrous 2022-0 Yes [id number] 325mg Take 1 Reynold sey Sulfate 1-13 tablet Seybold (Iron) 325 00:00: (325 mg - (65 Fe) MG 00 total) by Exte rna oral Tablet mouth l daily (with breakfast) Docusate 2022-0 Yes [id number] 100mg Take 1 Ke lsey Sodium 1-13 capsule Seybold (Colace) 00:00: (100 mg - 100 MG oral 00 total) by Ext jonathan Capsule mouth l daily Ferrous Yes [id number] 325mg Take 1 Reynold sey Sulfate 1-13 tablet Seybold (Iron) 325 00:00: (325 mg - (65 Fe) MG 00 total) by Exte rna oral Tablet mouth l daily (with breakfast) Docusate Yes [id number] 100mg Take 1 Ke lsey Sodium 1-13 capsule Seybold (Colace) 00:00: (100 mg - 100 MG oral 00 total) by Ext jonathan Capsule mouth l daily Ferrous Yes [id number] 325mg Take 1 Reynold sey Sulfate 1-13 tablet Seybold (Iron) 325 00:00: (325 mg - (65 Fe) MG 00 total) by Exte rna oral Tablet mouth l daily (with breakfast) Docusate Yes [id number] 100mg Take 1 Ke lsey Sodium 1-13 capsule Seybold (Colace) 00:00: (100 mg - 100 MG oral 00 total) by Ext jonathan Capsule mouth l daily Ferrous Yes [id number] 325mg Take 1 Reynold sey Sulfate 1-13 tablet Seybold (Iron) 325 00:00: (325 mg - (65 Fe) MG 00 total) by Exte rna oral Tablet mouth l daily (with breakfast) Docusate Yes [id number] 100mg Take 1 Ke lsey Sodium 1-13 capsule Seybold (Colace) 00:00: (100 mg - 100 MG oral 00 total) by Ext jonathan Capsule mouth l daily Ferrous Yes [id number] 325mg Take 1 Reynold sey Sulfate 1-13 tablet Seybold (Iron) 325 00:00: (325 mg - (65 Fe) MG 00 total) by Exte rna oral Tablet mouth l daily (with breakfast) Docusate Yes [id number] 100mg Take 1 Ke lsey Sodium 1-13 capsule Seybold (Colace) 00:00: (100 mg - 100 MG oral 00 total) by Ext jonathan Capsule mouth l daily Ferrous Yes [id number] 325mg Take 1 Reynold sey Sulfate 1-13 tablet Seybold (Iron) 325 00:00: (325 mg - (65 Fe) MG 00 total) by Exte rna oral Tablet mouth l daily (with breakfast) Docusate 0 Yes [id number] 100mg Take 1 Ke lsey Sodium 1-13 capsule Seybold (Colace) 00:00: (100 mg - 100 MG oral 00 total) by Ext jonathan Capsule mouth l daily Ferrous 2022-0 Yes [id number] 325mg Take 1 Reynold sey Sulfate 1-13 tablet Seybold (Iron) 325 00:00: (325 mg - (65 Fe) MG 00 total) by Exte rna oral Tablet mouth l daily (with breakfast) Docusate 0 Yes [id number] 100mg Take 1 Ke lsey Sodium 1-13 capsule Seybold (Colace) 00:00: (100 mg - 100 MG oral 00 total) by Ext jonathan Capsule mouth l daily Ferrous 0 Yes [id number] 325mg Take 1 Reynold sey Sulfate 1-13 tablet Seybold (Iron) 325 00:00: (325 mg - (65 Fe) MG 00 total) by Exte rna oral Tablet mouth l daily (with breakfast) Docusate 0 Yes [id number] 100mg Take 1 Ke lsey Sodium 1-13 capsule Seybold (Colace) 00:00: (100 mg - 100 MG oral 00 total) by Ext jonathan Capsule mouth l daily Ferrous 2022-0 Yes [id number] 325mg Take 1 Reynold sey Sulfate 1-13 tablet Seybold (Iron) 325 00:00: (325 mg - (65 Fe) MG 00 total) by Exte rna oral Tablet mouth l daily (with breakfast) Docusate 0 Yes [id number] 100mg Take 1 Ke lsey Sodium 1-13 capsule Seybold (Colace) 00:00: (100 mg - 100 MG oral 00 total) by Ext jonathan Capsule mouth l daily Docusate 0 Yes [id number] 100mg Take 1 Ke lsey Sodium 1-13 capsule Seybold (Colace) 00:00: (100 mg - 100 MG oral 00 total) by Ext jonathan Capsule mouth l daily Docusate 0 Yes [id number] 100mg Take 1 Ke lsey Sodium 1-13 capsule Seybold (Colace) 00:00: (100 mg - 100 MG oral 00 total) by Ext jonathan Capsule mouth l daily Ferrous Yes [id number] 325mg Take 1 Ryenold sey Sulfate 1-13 tablet Seybold (Iron) 325 00:00: (325 mg - (65 Fe) MG 00 total) by Exte rna oral Tablet mouth l daily (with breakfast) Docusate Yes [id number] 100mg Take 1 Ke lsey Sodium 1-13 capsule Seybold (Colace) 00:00: (100 mg - 100 MG oral 00 total) by Ext jonathan Capsule mouth l daily Nitrofurant 2022- No [id number] 100mg Take 1 Jelena oin Monohyd 1-13 [...] Dose No Unknown 2-03 00:00: 00 Dose 0 No Unknown 2-03 00:00: 00 Dose 0 No Unknown 2-03 00:00: 00 Dose 2021-0 No Unknown 1-12 00:00: 00 Dose 2021-0 No Unknown 1-12 00:00: 00 Dose 0 No Unknown 1-12 00:00: 00 Dose 2021-0 No Unknown 1-11 00:00: 00 Dose 2021-0 No Unknown 1-11 00:00: 00 Dose 2021-0 No Unknown 1-11 00:00: 00 Dose 2021-0 No Unknown 1-11 00:00: 00 Dose 2022-0 No Unknown 1-11 00:00: 00 Dose 2021-0 No Unknown 1-11 00:00: 00 LYRICA 150 2019-08 Yes [id number] Take 1 [facility] mg capsule 2-21 capsule by [facility] of 00:00: mouth [place] 00 twice a Medical day for Branch neuropathi c pain as directed by physician. LYRICA 150 2019-08 Yes [id number] Take 1 [facility] mg capsule 2-21 capsule by [facility] of 00:00: mouth [place] 00 twice a Medical day for Branch neuropathi c pain as directed by physician. LYRICA 150 2019-08 Yes [id number] Take 1 [facility] mg capsule 2-21 capsule by [facility]y of 00:00: mouth [place] 00 twice a Medical day for Branch neuropathi c pain as directed by physician. LYRICA 150 2019-08 Yes [id number] Take 1 [facility] mg capsule 2-21 capsule by [facility]y of 00:00: mouth [place] 00 twice a Medical day for Branch neuropathi c pain as directed by physician. LYRICA 150 2019-08 Yes [id number] Take 1 [facility] mg capsule 2-21 capsule by ity of 00:00: mouth [place] 00 twice a Medical day for Branch neuropathi c pain as directed by physician. LYRICA 150 2019-08 Yes [id number] Take 1 [facility] mg capsule 2-21 capsule by ity of 00:00: mouth [place] 00 twice a Medical day for Branch neuropathi c pain as directed by physician. LYRICA 150 2019-08 Yes [id number] Take 1 [facility] mg capsule 2-21 capsule by ity of 00:00: mouth [place] 00 twice a Medical day for Branch neuropathi c pain as directed by physician. LYRICA 150 2019-08 Yes [id number] Take 1 [facility] mg capsule 2-21 capsule [...] times Medical daily. Branch ofloxacin 2020-0 Yes [id number] 5[drp] Place 5 [facility] 0.3 % otic 9-17 [id number] Drops in ity of drops 00:00: both ears [place] 00 3 (three) Medical times Branch daily. ofloxacin 2020-0 Yes [id number] 5[drp] Place 5 [facility] 0.3 % otic 9-17 [id number] Drops in ity of drops 00:00: both ears [place] 00 3 (three) Medical times Branch daily. ofloxacin 2020-0 Yes [id number] 5[drp] Place 5 [facility] 0.3 % otic 9-17 [id number] Drops in ity of drops 00:00: both ears [place] 00 3 (three) Medical times Branch daily. ofloxacin 2020-0 Yes [id number] 5[drp] Place 5 [facility] 0.3 % otic 9-17 [id number] Drops in ity of drops 00:00: both ears [place] 00 3 (three) Medical times Branch daily. ofloxacin 2020-0 Yes [id number] 5[drp] Place 5 [facility] 0.3 % otic 9-17 [id number] Drops in ity of drops 00:00: both ears [place] 00 3 (three) Medical times Branch daily. ofloxacin 2020-0 Yes [id number] 5[drp] Place 5 [facility] 0.3 % otic 9-17 [id number] Drops in ity of drops 00:00: both ears [place] 00 3 (three) Medical times Branch daily. ofloxacin 2020-0 Yes [id number] 5[drp] Place 5 [facility] 0.3 % otic 9-17 [id number] Drops in ity of drops 00:00: both ears [place] 00 3 (three) Medical times Branch daily. ofloxacin 2020-0 Yes [id number] 5[drp] Place 5 [facility] 0.3 % otic 9-17 [id number] Drops in ity of drops 00:00: both ears [place] 00 3 (three) Medical times Branch daily. ofloxacin 2020-0 Yes [id number] 5[drp] Place 5 [facility] 0.3 % otic 9-17 [id number] Drops in ity of drops 00:00: both ears [place] 00 3 (three) Medical times Branch daily. ofloxacin 2020-0 Yes [id number] 5[drp] Place 5 [facility] 0.3 % otic 9-17 [id number] Drops in ity of drops 00:00: both ears [place] 00 3 (three) Medical times Branch daily. ofloxacin 2020-0 Yes [id number] 5[drp] Place 5 [facility] 0.3 % otic 9-17 [id number] Drops in ity of drops 00:00: both ears [place] 00 3 (three) Medical times Branch daily. ofloxacin 2020-0 Yes [id number] 5[drp] Place 5 [facility] 0.3 % otic 9-17 [id number] Drops in ity of drops 00:00: both ears [place] 00 3 (three) Medical times Branch daily. ofloxacin 2020-0 Yes [id number] 5[drp] Place 5 [facility] 0.3 % otic 9-17 [id number] Drops in ity of drops 00:00: both ears [place] 00 3 (three) Medical times Branch daily. ofloxacin 2020-0 Yes [id number] 5[drp] Place 5 [facility] 0.3 % otic 9-17 [id number] Drops in ity of drops 00:00: both ears [place] 00 3 (three) Medical times Branch daily. ofloxacin 2020-0 Yes [id number] 5[drp] Place 5 [facility] 0.3 % otic 9-17 [id number] Drops in ity of drops 00:00: both ears [place] 00 3 (three) Medical times Branch daily. ofloxacin 2020-0 Yes [id number] 5[drp] Place 5 [facility] 0.3 % otic 05-17 [id number] Drops in ity of drops 00:00: both [...] Indication s: acute pain metoprolol 2020-0 Yes [id number] 50mg Take 1 Un nneka succinate 03-08 tablet by ity o f XL 50 mg 24 00:00: mouth [place] hr tablet 00 daily. Medical Branch hydroCHLORO 2019-0 Yes [id number] 25mg Take 1 [facility] thiazide 25 03-08 tablet by ity of mg tablet 00:00: mouth [place] 00 daily. Medical Branch baclofen 10 2020-0 Yes [id number] 10mg Take 1 [facility] mg tablet 03-08 [id number] tablet by it[facility] of 00:00: mouth 3 [place] 00 (three) Medical times Branch daily as needed for Pain (scale 4-6). metoprolol 2020-0 Yes [id number] 50mg Take 1 [facility] nneka succinate 7-09 tablet by ity o f XL 50 mg 24 00:00: mouth [place] hr tablet 00 daily. Medical Branch hydroCHLORO 2020-0 Yes [id number] 25mg Take 1 [facility] thiazide 25 7-09 tablet by ity of mg tablet 00:00: mouth [place] 00 daily. Medical Branch baclofen 10 2020-0 Yes [id number] 10mg Take 1 [facility] mg tablet 7- [id number] tablet by ity of 00:00: mouth 3 [place] 00 (three) Medical times Branch daily as needed for Pain (scale 4-6). metoprolol 2020-0 Yes [id number] 50mg Take 1 Un nneka succinate 7-09 tablet by ity o f XL 50 mg 24 00:00: mouth [place] hr tablet 00 daily. Medical Branch hydroCHLORO 2020-0 Yes [id number] 25mg Take 1 [facility] thiazide 25 7-09 tablet by ity of mg tablet 00:00: mouth [place] 00 daily. Medical Branch baclofen 10 2020-0 Yes [id number] 10mg Take 1 [facility] mg tablet 7 [id number] tablet by it[facility] of 00:00: mouth 3 [place] 00 (three) Medical times Branch daily as needed for Pain (scale 4-6). metoprolol 2020-0 Yes [id number] 50mg Take 1 Un nneka succinate 7-09 tablet by ity o f XL 50 mg 24 00:00: mouth [place] hr tablet 00 daily. Medical Branch hydroCHLORO 2020-0 Yes [id number] 25mg Take 1 [facility] thiazide 25 7-09 tablet by ity of mg tablet 00:00: mouth [place] 00 daily. Medical Branch baclofen 10 2020-0 Yes [id number] 10mg Take 1 [facility] mg tablet 7- [id number] tablet by ity of 00:00: mouth 3 [place] 00 (three) Medical times Branch daily as needed for Pain (scale 4-6). metoprolol 2020-0 Yes [id number] 50mg Take 1 Un nneka succinate 7-09 tablet by ity o f XL 50 mg 24 00:00: mouth [place] hr tablet 00 daily. Medical Branch hydroCHLORO 2020-0 Yes [id number] 25mg Take 1 [facility] thiazide 25 7-09 tablet by ity of mg tablet 00:00: mouth [place] 00 daily. Medical Branch baclofen 10 2020-0 Yes [id number] 10mg Take 1 [facility] mg tablet 03-08 [id number] tablet by ity of 00:00: mouth 3 [place] 00 (three) Medical times Branch daily as needed for Pain (scale 4-6). metoprolol 2020-0 Yes [id number] 50mg Take 1 [facility] nneka succinate 7-09 tablet by ity o f XL 50 mg 24 00:00: mouth [place] hr tablet 00 daily. Medical Branch hydroCHLORO 2020-0 Yes [id number] 25mg Take 1 [facility] thiazide 25 7-09 tablet by ity of mg tablet 00:00: mouth [place] 00 daily. Medical Branch baclofen 10 2020-0 Yes [id number] 10mg Take 1 [facility] mg tablet 03-08 [id number] tablet by ity of 00:00: mouth 3 [place] 00 (three) Medical times Branch daily as needed for Pain (scale 4-6). metoprolol 2020-0 Yes [id number] 50mg Take 1 [facility] nneka succinate 7-09 tablet by ity o f XL 50 mg 24 00:00: mouth [place] hr tablet 00 daily. Medical Branch hydroCHLORO 2020-0 Yes [id number] 25mg Take 1 [facility] thiazide 25 7-09 tablet by ity of mg tablet 00:00: mouth [place] 00 daily. Medical Branch baclofen 10 2020-0 Yes [id number] 10mg Take 1 [facility] mg tablet 03-08 [id number] tablet by ity of 00:00: mouth 3 [place] 00 (three) Medical times Branch daily as needed for Pain (scale 4-6). metoprolol 2020-0 Yes [id number] 50mg Take 1 [facility] nneka succinate 7-09 tablet by ity o f XL 50 mg 24 00:00: mouth [place] hr tablet 00 daily. Medical Branch hydroCHLORO 2020-0 Yes [id number] 25mg Take 1 [facility] thiazide 25 7-09 tablet by ity of mg tablet 00:00: mouth [place] 00 daily. Medical Branch baclofen 10 2020-0 Yes [id number] 10mg Take 1 [facility] mg tablet 03-08 [id number] tablet by ity of 00:00: mouth 3 [place] 00 (three) Medical times Branch daily as needed for Pain (scale 4-6). metoprolol 2020-0 Yes [id number] 50mg Take 1 [facility] nneka succinate 7-09 tablet by ity o f XL 50 mg 24 00:00: mouth [place] hr tablet 00 daily. Medical Branch hydroCHLORO 2020-0 Yes [id number] 25mg Take 1 [facility] thiazide 25 7-09 tablet by ity of mg tablet 00:00: mouth [place] 00 daily. Medical Branch baclofen 10 2020-0 Yes [id number] 10mg Take 1 [facility] mg tablet 7- [id number] tablet by ity of 00:00: mouth 3 [place] 00 (three) Medical times Branch daily as needed for Pain (scale 4-6). metoprolol 2020-0 Yes [id number] 50mg Take 1 [facility] nneka succinate 7-09 tablet by ity o f XL 50 mg 24 00:00: mouth [place] hr tablet 00 daily. Medical Branch hydroCHLORO 2020-0 Yes [id number] 25mg Take 1 [facility] thiazide 25 7-09 tablet by ity of mg tablet 00:00: mouth [place] 00 daily. Medical Branch baclofen 10 2019-0 Yes [id number] 10mg Take 1 [facility] mg tablet 03-08 [id number] tablet by ity of 00:00: mouth 3 [place] 00 (three) Medical times Branch daily as needed for Pain (scale 4-6). metoprolol 2020-0 Yes [id number] 50mg Take 1 [facility] nneka succinate 7-09 tablet by ity o f XL 50 mg 24 00:00: mouth [place] hr tablet 00 daily. Medical Branch hydroCHLORO 2020-0 Yes [id number] 25mg Take 1 [facility] thiazide 25 7-09 tablet by ity of mg tablet 00:00: mouth [place] 00 daily. Medical Branch baclofen 10 2019-0 Yes [id number] 10mg Take 1 [facility] mg tablet 03-08 [id number] tablet by ity of 00:00: mouth 3 [place] 00 (three) Medical times Branch daily as needed for Pain (scale 4-6). metoprolol 2020-0 Yes [id number] 50mg Take 1 [facility] nneka succinate 7-09 tablet by ity o f XL 50 mg 24 00:00: mouth [place] hr tablet 00 daily. Medical Branch hydroCHLORO 2020-0 Yes [id number] 25mg Take 1 [facility] thiazide 25 7-09 tablet by ity of mg tablet 00:00: mouth [place] 00 daily. Medical Branch baclofen 10 2020-0 Yes [id number] 10mg Take 1 [facility] mg tablet 03-08 [id number] tablet by ity of 00:00: mouth 3 [place] 00 (three) Medical times Branch daily as needed for Pain (scale 4-6). metoprolol 2020-0 Yes [id number] 50mg Take 1 [facility] nneka succinate 7-09 tablet by ity o f XL 50 mg 24 00:00: mouth [place] hr tablet 00 daily. Medical Branch hydroCHLORO 2020-0 Yes [id number] 25mg Take 1 [facility] thiazide 25 7-09 tablet by ity of mg tablet 00:00: mouth [place] 00 daily. Medical Branch baclofen 10 2020-0 Yes [id number] 10mg Take 1 [facility] mg tablet 7- [id number] tablet by ity of 00:00: mouth 3 [place] 00 (three) Medical times Branch daily as needed for Pain (scale 4-6). metoprolol 2020-0 Yes [id number] 50mg Take 1 [facility] nneka succinate 7-09 tablet by ity o f XL 50 mg 24 00:00: mouth [place] hr tablet 00 daily. Medical Branch hydroCHLORO 2020-0 Yes [id number] 25mg Take 1 [facility] thiazide 25 7-09 tablet by ity of mg tablet 00:00: mouth [place] 00 daily. Medical Branch baclofen 10 2020-0 Yes [id number] 10mg Take 1 [facility] mg tablet 7- [id number] tablet by ity of 00:00: mouth 3 [place] 00 (three) Medical times Branch daily as needed for Pain (scale 4-6). metoprolol 2020-0 Yes [id number] 50mg Take 1 [facility] nneka succinate 7-09 tablet by ity o f XL 50 mg 24 00:00: mouth [place] hr tablet 00 daily. Medical Branch hydroCHLORO 2020-0 Yes [id number] 25mg Take 1 [facility] thiazide 25 7-09 tablet by ity of mg tablet 00:00: mouth [place] 00 daily. Medical Branch baclofen 10 2020-0 Yes [id number] 10mg Take 1 [facility] mg tablet 7- [id number] tablet by ity of 00:00: mouth 3 [place] 00 (three) Medical times Branch daily as needed for Pain (scale 4-6). metoprolol 2020-0 Yes [id number] 50mg Take 1 [facility] nneka succinate 7-09 tablet by ity o f XL 50 mg 24 00:00: mouth [place] hr tablet 00 daily. Medical Branch hydroCHLORO 2020-0 Yes [id number] 25mg Take 1 [facility] thiazide 25 7-09 tablet by ity of mg tablet 00:00: mouth [place] 00 daily. Medical Branch baclofen 10 2020-0 Yes [id number] 10mg Take 1 [facility] mg tablet 03-08 [id number] tablet by ity of 00:00: mouth 3 [place] 00 (three) Medical times Branch daily as needed for Pain (scale 4-6). metoprolol 2020-0 Yes [id number] 50mg Take 1 [facility] nneka succinate 7-09 tablet by ity o f XL 50 mg 24 00:00: mouth [place] hr tablet 00 daily. Medical Branch hydroCHLORO 2020-0 Yes [id number] 25mg Take 1 [facility] thiazide 25 7-09 tablet by ity of mg tablet 00:00: mouth [place] 00 daily. Medical Branch baclofen 10 2020-0 Yes [id number] 10mg Take 1 [facility] mg tablet 7 [id number] tablet by ity of 00:00: mouth 3 [place] 00 (three) Medical times Branch daily as needed for Pain (scale 4-6). metoprolol 2020-0 Yes [id number] 50mg Take 1 [facility] nneka succinate 7-09 tablet by ity o f XL 50 mg 24 00:00: mouth [place] hr tablet 00 daily. Medical Branch hydroCHLORO 2020-0 Yes [id number] 25mg Take 1 [facility] thiazide 25 7-09 tablet by ity of mg tablet 00:00: mouth [place] 00 daily. Medical Branch baclofen 10 2020-0 Yes [id number] 10mg Take 1 [facility] mg tablet 03-08 [id number] tablet by ity of 00:00: mouth 3 [place] 00 (three) Medical times Branch daily as needed for Pain (scale 4-6). metoprolol 2020-0 Yes [id number] 50mg Take 1 [facility] nneka succinate 7-09 tablet by ity o f XL 50 mg 24 00:00: mouth [place] hr tablet 00 daily. Medical Branch hydroCHLORO 2020-0 Yes [id number] 25mg Take 1 [facility] thiazide 25 7-09 tablet by ity of mg tablet 00:00: mouth [place] 00 daily. Medical Branch baclofen 10 2020-0 Yes [id number] 10mg Take 1 [facility] mg tablet 7- [id number] tablet by ity of 00:00: mouth 3 [place] 00 (three) Medical times Branch daily as needed for Pain (scale 4-6). metoprolol 2020-0 Yes [id number] 50mg Take 1 [facility] nneka succinate 7-09 tablet by ity o f XL 50 mg 24 00:00: mouth [place] hr tablet 00 daily. Medical Branch hydroCHLORO 2020-0 Yes [id number] 25mg Take 1 [facility] thiazide 25 7-09 tablet by ity of mg tablet 00:00: mouth [place] 00 daily. Medical Branch baclofen 10 2020-0 Yes [id number] 10mg Take 1 [facility] mg tablet 7- [id number] tablet by ity of 00:00: mouth 3 [place] 00 (three) Medical times Branch daily as needed for Pain (scale 4-6). metoprolol 2020-0 Yes [id number] 50mg Take 1 [facility] nneka succinate 7-09 tablet by ity o f XL 50 mg 24 00:00: mouth [place] hr tablet 00 daily. Medical Branch hydroCHLORO 2020-0 Yes [id number] 25mg Take 1 [facility] thiazide 25 7-09 tablet by ity of mg tablet 00:00: mouth [place] 00 daily. Medical Branch baclofen 10 2020-0 Yes [id number] 10mg Take 1 [facility] mg tablet 03-08 [id number] tablet by ity of 00:00: mouth 3 [place] 00 (three) Medical times Branch daily as needed for Pain (scale 4-6). metoprolol 2020-0 Yes [id number] 50mg Take 1 [facility] nneka succinate 7-09 tablet by ity o f XL 50 mg 24 00:00: mouth [place] hr tablet 00 daily. Medical Branch hydroCHLORO 2020-0 Yes [id number] 25mg Take 1 [facility] thiazide 25 7-09 tablet by ity of mg tablet 00:00: mouth [place] 00 daily. Medical Branch baclofen 10 2020-0 Yes [id number] 10mg Take 1 [facility] mg tablet 03-08 [id number] tablet by ity of 00:00: mouth 3 [place] 00 (three) Medical times Branch daily as needed for Pain (scale 4-6). metoprolol 2020-0 Yes [id number] 50mg Take 1 [facility] nneka succinate 7-09 tablet by ity o f XL 50 mg 24 00:00: mouth [place] hr tablet 00 daily. Medical Branch hydroCHLORO 2020-0 Yes [id number] 25mg Take 1 [facility] thiazide 25 7-09 tablet by ity of mg tablet 00:00: mouth [place] 00 daily. Medical Branch baclofen 10 2020-0 Yes [id number] 10mg Take 1 [facility] mg tablet 03-08 [id number] tablet by ity of 00:00: mouth 3 [place] 00 (three) Medical times Branch daily as needed for Pain (scale 4-6). metoprolol 2020-0 Yes [id number] 50mg Take 1 [facility] nneka succinate 7-09 tablet by ity o f XL 50 mg 24 00:00: mouth [place] hr tablet 00 daily. Medical Branch hydroCHLORO 2020-0 Yes [id number] 25mg Take 1 [facility] thiazide 25 7-09 tablet by ity of mg tablet 00:00: mouth [place] 00 daily. Medical Branch baclofen 10 2020-0 Yes [id number] 10mg Take 1 [facility] mg tablet 7- [id number] tablet by ity of 00:00: mouth 3 [place] 00 (three) Medical times Branch daily as needed for Pain (scale 4-6). metoprolol 2020-0 Yes [id number] 50mg Take 1 [facility] nneka succinate 7-09 tablet by ity o f XL 50 mg 24 00:00: mouth [place] hr tablet 00 daily. Medical Branch hydroCHLORO 2020-0 Yes [id number] 25mg Take 1 [facility] thiazide 25 7-09 tablet by ity of mg tablet 00:00: mouth [place] 00 daily. Medical Branch baclofen 10 2020-0 Yes [id number] 10mg Take 1 [facility] mg tablet 7- [id number] tablet by ity of 00:00: mouth 3 [place] 00 (three) Medical times Branch daily as needed for Pain (scale 4-6). metoprolol 2020-0 Yes [id number] 50mg Take 1 [facility] nneka succinate 7-09 tablet by ity o f XL 50 mg 24 00:00: mouth [place] hr tablet 00 daily. Medical Branch hydroCHLORO 2020-0 Yes [id number] 25mg Take 1 [facility] thiazide 25 7-09 tablet by ity of mg tablet 00:00: mouth [place] 00 daily. Medical Branch baclofen 10 2020-0 Yes [id number] 10mg Take 1 [facility] mg tablet 7- [id number] tablet by ity of 00:00: mouth 3 [...] by ity of tablet 14:58: mouth at [place] [address] bedtime. Medical Branch benztropine 2020-0 Yes 1mg Take 1 mg U nivers 1 mg tablet 2-25 by mouth ity of 14:58: daily. [place] [address] Medical Branch DULOXETINE 2020-0 Yes 60mg Take 60 mg U nivers HCL 2-25 by mouth 3 ity of (CYMBALTA 14:58: (three) [place] ORAL) 32 times Medical daily. Branch VITAMIN B 2020-0 Yes Take by Unive rs COMPLEX 2-25 mouth. ity of ORAL 14:58: [place] [address] Medical Branch traZODONE 2020-0 Yes 100mg Take 100 [facility] vers 100 mg 2-25 mg by ity of tablet 14:58: mouth at [place] [address] bedtime. Medical Branch benztropine 2020-0 Yes 1mg Take 1 mg U nivers 1 mg tablet 2-25 by mouth ity of 14:58: daily. [place] [address] Medical Branch DULOXETINE 2020-0 Yes 60mg Take 60 mg U nivers HCL 2-25 by mouth 3 ity of (CYMBALTA 14:58: (three) [place] ORAL) 32 times Medical daily. Branch VITAMIN B 2020-0 Yes Take by Unive rs COMPLEX 2-25 mouth. ity of ORAL 14:58: [place] [address] Medical Branch traZODONE 2020-0 Yes 100mg Take 100 [facility] vers 100 mg 2-25 mg by ity of tablet 14:58: mouth at [place] [address] bedtime. Medical Branch benztropine 2020-0 Yes 1mg Take 1 mg U nivers 1 mg tablet 2-25 by mouth ity of 14:58: daily. [place] [address] Medical Branch DULOXETINE 2020-0 Yes 60mg Take 60 mg U nivers HCL 2-25 by mouth 3 ity of (CYMBALTA 14:58: (three) [place] ORAL) 32 times Medical daily. Branch VITAMIN B 2020-0 Yes Take by Unive rs COMPLEX 2-25 mouth. ity of ORAL 14:58: [place] [address] Medical Branch traZODONE 2020-0 Yes 100mg Take 100 [facility] vers 100 mg 2-25 mg by ity of tablet 14:58: mouth at [place] [address] bedtime. Medical Branch benztropine 2020-0 Yes 1mg Take 1 mg U nivers 1 mg tablet 2-25 by mouth ity of 14:58: daily. [place] [address] Medical Branch DULOXETINE 2020-0 Yes 60mg Take 60 mg U nivers HCL 2-25 by mouth 3 ity of (CYMBALTA 14:58: (three) [place] ORAL) 32 times Medical daily. Branch VITAMIN B 2020-0 Yes Take by Un[facility] rs COMPLEX 2-25 mouth. ity of ORAL 14:58: [place] [address] Medical Branch traZODONE 2020-0 Yes 100mg Take 100 [facility] vers 100 mg 2-25 mg by ity of tablet 14:58: mouth at [place] [address] bedtime. Medical Branch benztropine 2020-0 Yes 1mg Take 1 mg U nivers 1 mg tablet 2-25 by mouth ity of 14:58: daily. [place] [address] Medical Branch DULOXETINE 2020-0 Yes 60mg Take 60 mg U nivers HCL 2-25 by mouth 3 ity of (CYMBALTA 14:58: (three) [place] ORAL) 32 times Medical daily. Branch VITAMIN B 2020-0 Yes Take by [facility] rs COMPLEX 2-25 mouth. ity of ORAL 14:58: [place] [address] Medical Branch traZODONE 2020-0 Yes 100mg Take 100 [facility] vers 100 mg 2-25 mg by ity of tablet 14:58: mouth at [place] [address] bedtime. Medical Branch benztropine 2020-0 Yes 1mg Take 1 mg U nivers 1 mg tablet 2-25 by mouth ity of 14:58: daily. [place] [address] Medical Branch DULOXETINE 2020-0 Yes 60mg Take 60 mg U nivers HCL 2-25 by mouth 3 ity of (CYMBALTA 14:58: (three) [place] ORAL) 32 times Medical daily. Branch VITAMIN B 2020-0 Yes Take by [facility] rs COMPLEX 2-25 mouth. ity of ORAL 14:58: [place] [address] Medical Branch traZODONE 2020-0 Yes 100mg Take 100 [facility] vers 100 mg 2-25 mg by ity of tablet 14:58: mouth at [place] [address] bedtime. Medical Branch benztropine 2020-0 Yes 1mg Take 1 mg U nivers 1 mg tablet 2-25 by mouth ity of 14:58: daily. [place] [address] Medical Branch DULOXETINE 2020-0 Yes 60mg Take 60 mg U nivers HCL 2-25 by mouth 3 ity of (CYMBALTA 14:58: (three) [place] ORAL) 32 times Medical daily. Branch VITAMIN B 2020-0 Yes Take by [facility] rs COMPLEX 2-25 mouth. ity of ORAL 14:58: [place] [address] Medical Branch traZODONE 2020-0 Yes 100mg Take 100 [facility] vers 100 mg 2-25 mg by ity of tablet 14:58: mouth at [place] [address] bedtime. Medical Branch benztropine 2020-0 Yes 1mg Take 1 mg U nivers 1 mg tablet 2-25 by mouth ity of 14:58: daily. [place] [address] Medical Branch DULOXETINE 2020-0 Yes 60mg Take 60 mg U nivers HCL 2-25 by mouth 3 ity of (CYMBALTA 14:58: (three) [place] ORAL) 32 times Medical daily. Branch VITAMIN B 2020-0 Yes Take by [facility] rs COMPLEX 2-25 mouth. ity of ORAL 14:58: [place] [address] Medical Branch traZODONE 2020-0 Yes 100mg Take 100 [facility] vers 100 mg 2-25 mg by ity of tablet 14:58: mouth at [place] [address] bedtime. Medical Branch benztropine 2020-0 Yes 1mg Take 1 mg U nivers 1 mg tablet 2-25 by mouth ity of 14:58: daily. [place] [address] Medical Branch DULOXETINE 2020-0 Yes 60mg Take 60 mg U nivers HCL 2-25 by mouth 3 ity of (CYMBALTA 14:58: (three) [place] ORAL) 32 times Medical daily. Branch VITAMIN B 2020-0 Yes Take by [facility] rs COMPLEX 2-25 mouth. ity of ORAL 14:58: [place] [address] Medical Branch traZODONE 2020-0 Yes 100mg Take 100 [facility] vers 100 mg 2-25 mg by ity of tablet 14:58: mouth at [place] [address] bedtime. Medical Branch benztropine 2020-0 Yes 1mg Take 1 mg U nivers 1 mg tablet 2-25 by mouth ity of 14:58: daily. [place] [address] Medical Branch DULOXETINE 2020-0 Yes 60mg Take 60 mg U nivers HCL 2-25 by mouth 3 ity of (CYMBALTA 14:58: (three) [place] ORAL) 32 times Medical daily. Branch VITAMIN B 2020-0 Yes Take by [facility] rs COMPLEX 2-25 mouth. ity of ORAL 14:58: [place] [address] Medical Branch traZODONE 2020-0 Yes 100mg Take 100 [facility] vers 100 mg 2-25 mg by ity of tablet 14:58: mouth at [place] [address] bedtime. Medical Branch benztropine 2020-0 Yes 1mg Take 1 mg U nivers 1 mg tablet 2-25 by mouth ity of 14:58: daily. [place] [address] Medical Branch DULOXETINE 2020-0 Yes 60mg Take 60 mg U nivers HCL 2-25 by mouth 3 ity of (CYMBALTA 14:58: (three) [place] ORAL) 32 times Medical daily. Branch VITAMIN B 2020-0 Yes Take by [facility] rs COMPLEX 2-25 mouth. ity of ORAL 14:58: [place] [address] Medical Branch traZODONE 2020-0 Yes 100mg Take 100 [facility] vers 100 mg 2-25 mg by ity of tablet 14:58: mouth at [place] [address] bedtime. Medical Branch benztropine 2020-0 Yes 1mg Take 1 mg U nivers 1 mg tablet 2-25 by mouth ity of 14:58: daily. [place] [address] Medical Branch DULOXETINE 2020-0 Yes 60mg Take 60 mg U nivers HCL 2-25 by mouth 3 ity of (CYMBALTA 14:58: (three) [place] ORAL) 32 times Medical daily. Branch VITAMIN B 2020-0 Yes Take by [facility] rs COMPLEX 2-25 mouth. ity of ORAL 14:58: [place] [address] Medical Branch traZODONE 2020-0 Yes 100mg Take 100 [facility] vers 100 mg 2-25 mg by ity of tablet 14:58: mouth at [place] [address] bedtime. Medical Branch benztropine 2020-0 Yes 1mg Take 1 mg [facility] nivers 1 mg tablet 2-25 by mouth ity of 14:58: daily. [place] [address] Medical Branch DULOXETINE 2020-0 Yes 60mg Take 60 mg U nivers HCL 2-25 by mouth 3 ity of (CYMBALTA 14:58: (three) [place] ORAL) 32 times Medical daily. Branch VITAMIN B 2020-0 Yes Take by [facility] rs COMPLEX 2-25 mouth. ity of ORAL 14:58: [place] [address] Medical Branch traZODONE 2020-0 Yes 100mg Take 100 [facility] vers 100 mg 2-25 mg by ity of tablet 14:58: mouth at [place] [address] bedtime. Medical Branch benztropine 2020-0 Yes 1mg Take 1 mg [facility] nivers 1 mg tablet 2-25 by mouth ity of 14:58: daily. [place] [address] Medical Branch DULOXETINE 2020-0 Yes 60mg Take 60 mg U nivers HCL 2-25 by mouth 3 ity of (CYMBALTA 14:58: (three) [place] ORAL) 32 times Medical daily. Branch VITAMIN B 2020-0 Yes Take by [facility] rs COMPLEX 2-25 mouth. ity of ORAL 14:58: [place] [address] Medical Branch traZODONE 2020-0 Yes 100mg Take 100 [facility] vers 100 mg 2-25 mg by ity of tablet 14:58: mouth at [place] [address] bedtime. Medical Branch benztropine 2020-0 Yes 1mg Take 1 mg [facility] nivers 1 mg tablet 2-25 by mouth ity of 14:58: daily. [place] [address] Medical Branch DULOXETINE 2020-0 Yes 60mg Take 60 mg U nivers HCL 2-25 by mouth 3 ity of (CYMBALTA 14:58: (three) [place] ORAL) 32 times Medical daily. Branch VITAMIN B 2020-0 Yes Take by Unive rs COMPLEX 2-25 mouth. ity of ORAL 14:58: [place] [address] [facility] Branch traZODONE 2020-0 Yes 100mg Take 100 Uni vers 100 mg 2-25 mg by ity of tablet 14:58: mouth at [place] [address] bedtime. Medical Branch benztropine 2020-0 Yes 1mg Take 1 mg U nivers 1 mg tablet 2-25 by mouth ity of 14:58: daily. [place] [address] [facility] Branch DULOXETINE 2020-0 Yes 60mg Take 60 mg U nivers HCL 2-25 by mouth 3 ity of (CYMBALTA 14:58: (three) [place] ORAL) 32 times Medical daily. Branch VITAMIN B 2020-0 Yes Take by Unive rs COMPLEX 2-25 mouth. ity of ORAL 14:58: [place] [address] [facility] Branch traZODONE 2020-0 Yes 100mg Take 100 Uni vers 100 mg 2-25 mg by ity of tablet 14:58: mouth at [place] [address] bedtime. Medical Branch benztropine 2020-0 Yes 1mg Take 1 mg U nivers 1 mg tablet 2-25 by mouth ity of 14:58: daily. [place] [address] [facility] Branch VITAMIN B 2020-0 Yes Take by Unive rs COMPLEX 2-25 mouth. ity of ORAL 14:58: [place] [address] [facility] Branch traZODONE 2020-0 Yes 100mg Take 100 Uni vers 100 mg 2-25 mg by ity of tablet 14:58: mouth at [place] [address] bedtime. Medical Branch benztropine 2020-0 Yes 1mg Take 1 mg U nivers 1 mg tablet 2-25 by mouth ity of 14:58: daily. [address] Branch VITAMIN B 2020-0 Yes Take by Unive rs COMPLEX 2-25 mouth. ity of ORAL 14:58: [address] traZODONE 2020-0 Yes 100mg Take 100 Uni vers 100 mg 2-25 mg by ity of tablet 14:58: mouth at [place] [address] bedtime. Medical Branch benztropine 2020-0 Yes 1mg Take 1 mg U nivers 1 mg tablet 2-25 by mouth ity of 14:58: daily. [address] VITAMIN B 2020-0 Yes Take by Unive rs COMPLEX 2-25 mouth. ity of ORAL 14:58: [address] traZODONE 2020-0 Yes 100mg Take 100 Uni vers 100 mg 2-25 mg by ity of tablet 14:58: mouth at [place] [address] bedtime. Medical Branch benztropine 2020-0 Yes 1mg Take 1 mg U nivers 1 mg tablet 2-25 by mouth ity of 14:58: daily. [address] VITAMIN B 2020-0 Yes Take by Unive rs COMPLEX 2-25 mouth. ity of ORAL 14:58: [address] traZODONE 2020-0 Yes 100mg Take 100 Uni vers 100 mg 2-25 mg by ity of tablet 14:58: mouth at [place] [address] bedtime. Medical Branch benztropine 2020-0 Yes 1mg Take 1 mg U nivers 1 mg tablet 2-25 by mouth ity of 14:58: daily. [address] VITAMIN B 2020-0 Yes Take by Unive rs COMPLEX 2-25 mouth. ity of ORAL 14:58: [address] traZODONE 2020-0 Yes 100mg Take 100 Uni vers 100 mg 2-25 mg by ity of tablet 14:58: mouth at [place] [address] bedtime. Medical Branch benztropine 2020-0 Yes 1mg Take 1 mg U nivers 1 mg tablet 2-25 by mouth ity of 14:58: daily. [address] VITAMIN B 2020-0 Yes Take by Unive rs COMPLEX 2-25 mouth. ity of ORAL 14:58: [address] traZODONE 2020-0 Yes 100mg Take 100 Uni vers 100 mg 2-25 mg by ity of tablet 14:58: mouth at [place] [address] bedtime. Medical Branch benztropine 2020-0 Yes 1mg Take 1 mg U nivers 1 mg tablet 2-25 by mouth ity of 14:58: daily. [address] VITAMIN B 2020-0 Yes Take by Unive rs COMPLEX 2-25 mouth. ity of ORAL 14:58: [address] traZODONE 2020-0 Yes 100mg Take 100 Uni vers 100 mg 2-25 mg by ity of tablet 14:58: mouth at [place] [address] bedtime. Medical Branch benztropine 2020-0 Yes 1mg Take 1 mg U nivers 1 mg tablet 2-25 by mouth ity of 14:58: daily. [address] VITAMIN B 2020-0 Yes Take by Unive rs COMPLEX 2-25 mouth. ity of ORAL 14:58: [address] traZODONE 2020-0 Yes 100mg Take 100 Uni vers 100 mg 2-25 mg by ity of tablet 14:58: mouth at [place] [address] bedtime. Medical Branch benztropine 2020-0 Yes 1mg Take 1 mg U nivers 1 mg tablet 2-25 by mouth ity of 14:58: daily. [address] VITAMIN B 2020-0 Yes Take by Unive rs COMPLEX 2-25 mouth. ity of ORAL 14:58: [address] traZODONE 2020-0 Yes 100mg Take 100 Uni vers 100 mg 2-25 mg by ity of tablet 14:58: mouth at [place] [address] bedtime. Medical Branch benztropine 2020-0 Yes 1mg Take 1 mg U nivers 1 mg tablet 2-25 by mouth ity of 14:58: daily. [address] VITAMIN B 2020-0 Yes Take by Unive rs COMPLEX 2-25 mouth. ity of ORAL 14:58: [address] traZODONE 2020-0 Yes 100mg Take 100 Uni vers 100 mg 2-25 mg by ity of tablet 14:58: mouth at [place] [address] bedtime. Medical Branch benztropine 2020-0 Yes 1mg Take 1 mg U nivers 1 mg tablet 2-25 by mouth ity of 14:58: daily. [address] VITAMIN B 2020-0 Yes Take by Unive rs COMPLEX 2-25 mouth. ity of ORAL 14:58: [address] traZODONE 2020-0 Yes 100mg Take 100 Uni vers 100 mg 2-25 mg by ity of tablet 14:58: mouth at [place] [address] bedtime. Medical Branch benztropine 2020-0 Yes 1mg Take 1 mg U nivers 1 mg tablet 2-25 by mouth ity of 14:58: daily. [address] VITAMIN B 2020-0 Yes Take by Unive rs COMPLEX 2-25 mouth. ity of ORAL 14:58: [address] traZODONE 2020-0 Yes 100mg Take 100 Uni vers 100 mg 2-25 mg by ity of tablet 14:58: mouth at [place] [address] bedtime. Medical Branch benztropine 2020-0 Yes 1mg Take 1 mg U nivers 1 mg tablet 2-25 by mouth ity of 14:58: daily. [address] VITAMIN B 2020-0 Yes Take by Unive rs COMPLEX 2-25 mouth. ity of ORAL 14:58: [address] traZODONE 2020-0 Yes 100mg Take 100 Uni vers 100 mg 2-25 mg by ity of tablet 14:58: mouth at [place] [address] bedtime. Medical Branch benztropine 2020-0 Yes 1mg Take 1 mg U nivers 1 mg tablet 2-25 by mouth ity of 14:58: daily. [address] VITAMIN B 2020-0 Yes Take by Unive rs COMPLEX 2-25 mouth. ity of ORAL 14:58: [address] traZODONE 2020-0 Yes 100mg Take 100 Uni vers 100 mg 2-25 mg by ity of tablet 14:58: mouth at [place] [address] bedtime. Medical Branch benztropine 2020-0 Yes 1mg Take 1 mg U nivers 1 mg tablet 2-25 by mouth ity of 14:58: daily. [address] VITAMIN B 2020-0 Yes Take by Unive rs COMPLEX 2-25 mouth. ity of ORAL 14:58: [address] traZODONE 2020-0 Yes 100mg Take 100 Uni vers 100 mg 2-25 mg by ity of tablet 14:58: mouth at [place] [address] bedtime. Medical Branch benztropine 2020-0 Yes 1mg [...] COMPLEX 2-25 mouth. ity of ORAL 08:58: [place] [address] [facility] Branch traZODONE 2020-0 Yes 100mg Take 100 Uni vers 100 mg 2-25 mg by ity of tablet 08:58: mouth at [place] [address] bedtime. Medical Branch benztropine 2020-0 Yes 1mg Take 1 mg U nivers 1 mg tablet 2-25 by mouth ity of 08:58: daily. [place] [address] [facility] Branch ARIPiprazol 2020-0 Yes 10mg Take 10 mg Univers e 10 mg 2-25 by mouth 2 ity of tablet 08:58: (two) [place] 06 times Medical daily. Branch aripiprazol 2020-0 Yes 5mg Take 5 mg U nivers e (ABILIFY 2-24 by mouth 2 ity of ORAL) 17:16: (two) [place] 05 times Medical daily. Branch benztropine 2020-0 Yes 1mg Take 1 mg U nivers 1 mg tablet 2-24 by mouth ity of 17:16: daily. [place] [address] Medical Branch ARIPiprazol 2020-0 Yes 10mg Take [...] 2-24 by mouth ity of 17:16: daily. [place] [address] Medical Branch ARIPiprazol 2020-0 Yes 10mg Take 10 mg Univers e 10 mg 2-24 by mouth 2 ity of tablet 17:16: (two) [place] 05 times Medical daily. Branch DULOXETINE 2020-0 [...] by ity of tablet 17:15: mouth at [place] [address] bedtime. Medical Branch DULOXETINE 2020-0 Yes 60mg [...] ORAL 17:15: [place] 45 [facility] Branch traZODONE 2019- Yes 100mg Take 100 Uni vers 100 mg 2-24 mg by ity of tablet 17:15: mouth at [place] [address] bedtime. Medical Branch OLANZapine 2020- No 20mg Take 20 mg [facility] 20 mg 2-24 -24 by mouth ity of tablet 17:15: 00:00 at [place] 35 :00 bedtime. Medical Branch OLANZapine 2019-2019- No 20mg Take 20 mg [facility] 20 mg 2-24 -24 by mouth ity of tablet 17:15: 00:00 at [place] 35 :00 bedtime. Medical Branch OLANZapine 2020- No 20mg Take 20 mg [facility] 20 mg -24 -24 by mouth ity of tablet 17:15: 00:00 at [place] 35 :00 bedtime. Medical Branch OLANZapine 2020- No 10mg Take 10 mg Univers (ZYPREXA) 2-24 -24 by mouth 2 ity of 10 mg 17:15: 00:00 (two) [place] tablet 26 :00 times Medical daily. Branch OLANZapine 2020- No 10mg Take 10 mg [facility] (ZYPREXA) 2-24 -24 by mouth 2 ity of 10 mg 17:15: 00:00 (two) [place] tablet 26 :00 times Medical daily. Branch [...] :00 daily. Medical Branch metoprolol 2019- Yes [id number] 50mg Take 1 Un nneka succinate 2-24 tablet by ity o f XL 50 mg 24 00:00: mouth [place] hr tablet 00 daily. Medical Branch metoprolol 2020-0 Yes [id number] 50mg Take 1 Un nneka succinate 2-24 tablet by ity o f XL 50 mg 24 00:00: mouth [place] hr tablet 00 daily. Medical Branch metoprolol 2020-0 Yes [id number] 50mg Take 1 Un nneka succinate 2-24 tablet by ity o f XL 50 mg 24 00:00: mouth [place] hr tablet 00 daily. Medical Branch metoprolol 2020-0 Yes [id number] 50mg Take 1 Un nneka succinate 2-24 tablet by ity o f XL 50 mg 24 00:00: mouth [place] hr tablet 00 daily. Medical Branch metoprolol 2020-0 Yes [id number] 50mg Take 1 Un nneka succinate 2-24 tablet by ity o f XL 50 mg 24 00:00: mouth [place] hr tablet 00 daily. Medical Branch metoprolol 2020-0 Yes [id number] 50mg Take 1 Un nneka succinate 2-24 tablet by ity o f XL 50 mg 24 00:00: mouth [place] hr tablet 00 daily. Medical Branch metoprolol 2020-0 Yes [id number] 50mg Take 1 Un nneka succinate 2-24 tablet by ity o f XL 50 mg 24 00:00: mouth [place] hr tablet 00 daily. Medical Branch metoprolol 2020-0 Yes [id number] 50mg Take 1 Un nneka succinate 2-24 tablet by ity o f XL 50 mg 24 00:00: mouth [place] hr tablet 00 daily. Medical Branch metoprolol 2020-0 Yes [id number] 50mg Take 1 Un nneka succinate 2-24 tablet by ity o f XL 50 mg 24 00:00: mouth [place] hr tablet 00 daily. Medical Branch metoprolol 2020-0 Yes [id number] 50mg Take 1 Un nneka succinate 2-24 tablet by ity o f XL 50 mg 24 00:00: mouth [place] hr tablet 00 daily. Medical Branch metoprolol 2020-0 2020- No [id number] 50mg Take 1 U nivers succinate 2-24 - tablet by ity of XL 50 mg 24 00:00: 00:00 [place] tablet 00 :00 daily. [facility] metoprolol 2020-0 2020- No [id number] 50mg Take 1 U nivers succinate 2-24 -09 tablet by ity of XL 50 mg 24 00:00: 00:00 mouth [place] hr tablet 00 :00 daily. [facility] metoprolol 2020-0 2020- No [id number] 50mg Take 1 U nivers succinate 2-24 - tablet by ity of XL 50 mg 24 00:00: 00:00 [place] hr tablet 00 :00 daily. [facility] metoprolol 2019-0 2020- No [id number] 50mg Take 1 U nivers succinate 2-24 -09 tablet by ity of XL 50 mg 24 00:00: 00:00 mouth [place] hr tablet 00 :00 daily. [facility] hydroCHLORO 2020-0 Yes [id number] 25mg Take 1 [facility] thiazide 25 1-30 tablet by ity of mg tablet 00:00: mouth [place] 00 daily. Medical Branch meloxicam 2020-0 Yes [id number] 15mg Take 1 U nivers 15 mg 1-30 tablet by ity of tablet 00:00: mouth [place] 00 daily. Medical Branch metoprolol 2020-0 Yes [id number] 25mg Take 1 Un nneka succinate 1-30 tablet by ity o f XL 25 mg 24 00:00: mouth [place] hr tablet 00 daily. Medical Branch pregabalin 2020-0 Yes [id number] 150mg Take 1 Univers (LYRICA) 1-30 capsule by ity o f 150 mg 00:00: mouth 2 [place] capsule 00 (two) Medical times Branch daily. hydroCHLORO 2020-0 Yes [id number] 25mg Take 1 [facility] thiazide 25 1-30 tablet by ity of mg tablet 00:00: mouth [place] 00 daily. Medical Branch meloxicam 2020-0 Yes [id number] 15mg Take 1 U nivers 15 mg 1-30 tablet by ity of tablet 00:00: mouth [place] 00 daily. Medical Branch metoprolol 2020-0 Yes [id number] 25mg Take 1 Un nneka succinate 1-30 tablet by ity o f XL 25 mg 24 00:00: mouth [place] hr tablet 00 daily. Medical Branch pregabalin 2020-0 Yes [id number] 150mg Take 1 Univers (LYRICA) 1-30 capsule by ity o f 150 mg 00:00: mouth 2 [place] capsule 00 (two) Medical times Branch daily. hydroCHLORO 2020-0 Yes [id number] 25mg Take 1 [facility] thiazide 25 1-30 tablet by ity of mg tablet 00:00: mouth [place] 00 daily. Medical Branch meloxicam 2020-0 Yes [id number] 15mg Take 1 U nivers 15 mg 1-30 tablet by ity of tablet 00:00: mouth [place] 00 daily. Medical Branch pregabalin 2020-0 Yes [id number] 150mg Take 1 Univers (LYRICA) 1-30 capsule by ity o f 150 mg 00:00: mouth 2 [place] capsule 00 (two) Medical times Branch daily. hydroCHLORO 2020-0 Yes [id number] 25mg Take 1 [facility] thiazide 25 1-30 tablet by ity of mg tablet 00:00: mouth [place] 00 daily. Medical Branch meloxicam 2020-0 Yes [id number] 15mg Take 1 U nivers 15 mg 1-30 tablet by ity of tablet 00:00: mouth [place] 00 daily. Medical Branch pregabalin 2020-0 Yes [id number] 150mg Take 1 Univers (LYRICA) 1-30 capsule by ity o f 150 mg 00:00: mouth 2 [place] capsule 00 (two) Medical times Branch daily. hydroCHLORO 2020-0 Yes [id number] 25mg Take 1 [facility] thiazide 25 1-30 tablet by ity of mg tablet 00:00: mouth [place] 00 daily. Medical Branch meloxicam 2020-0 Yes [id number] 15mg Take 1 U nivers 15 mg 1-30 tablet by ity of tablet 00:00: mouth [place] 00 daily. Medical Branch pregabalin 2020-0 Yes [id number] 150mg Take 1 Univers (LYRICA) 1-30 capsule by ity o f 150 mg 00:00: mouth 2 [place] capsule 00 (two) Medical times Branch daily. hydroCHLORO 2020-0 Yes [id number] 25mg Take 1 [facility] thiazide 25 1-30 tablet by ity of mg tablet 00:00: mouth [place] 00 daily. Medical Branch meloxicam 2020-0 Yes [id number] 15mg Take 1 U nivers 15 mg 1-30 tablet by ity of tablet 00:00: mouth [place] 00 daily. Medical Branch pregabalin 2020-0 Yes [id number] 150mg Take 1 Univers (LYRICA) 1-30 capsule by ity o f 150 mg 00:00: mouth 2 [place] capsule 00 (two) Medical times Branch daily. hydroCHLORO 2020-0 Yes [id number] 25mg Take 1 [facility] thiazide 25 1-30 tablet by ity of mg tablet 00:00: mouth [place] 00 daily. Medical Branch meloxicam 2020-0 Yes [id number] 15mg Take 1 U nivers 15 mg 1-30 tablet by ity of tablet 00:00: mouth [place] 00 daily. Medical Branch pregabalin 2020-0 Yes [id number] 150mg Take 1 Univers (LYRICA) 1-30 capsule by ity o f 150 mg 00:00: mouth 2 [place] capsule 00 (two) Medical times [facility] daily. hydroCHLORO 2020-0 Yes [id number] 25mg Take 1 Univers thiazide 25 1-30 tablet by ity of mg tablet 00:00: mouth [place] 00 daily. Medical Branch meloxicam 2020-0 Yes [id number] 15mg Take 1 U nivers 15 mg 1-30 tablet by ity of tablet 00:00: mouth [place] 00 daily. Medical Branch pregabalin 2020-0 Yes [id number] 150mg Take 1 Univers (LYRICA) 1-30 capsule by ity o f 150 mg 00:00: mouth 2 [place] capsule 00 (two) Medical times [facility] daily. hydroCHLORO 2020-0 Yes [id number] 25mg Take 1 [facility] thiazide 25 1-30 tablet by ity of mg tablet 00:00: mouth [place] 00 daily. Medical Branch meloxicam 2020-0 Yes [id number] 15mg Take 1 U nivers 15 mg 1-30 tablet by ity of tablet 00:00: mouth [place] 00 daily. Medical Branch pregabalin 2020-0 Yes [id number] 150mg Take 1 Univers (LYRICA) 1-30 capsule by ity o f 150 mg 00:00: mouth 2 [place] capsule 00 (two) Medical times [facility] daily. hydroCHLORO 2020-0 Yes [id number] 25mg Take 1 [facility] thiazide 25 1-30 tablet by ity of mg tablet 00:00: mouth [place] 00 daily. Medical Branch meloxicam 2020-0 Yes [id number] 15mg Take 1 U nivers 15 mg 1-30 tablet by ity of tablet 00:00: mouth [place] 00 daily. Medical Branch pregabalin 2020-0 Yes [id number] 150mg Take 1 Univers (LYRICA) 1-30 capsule by ity o f 150 mg 00:00: mouth 2 [place] capsule 00 (two) Medical times [facility] daily. hydroCHLORO 2020-0 Yes [id number] 25mg Take 1 [facility] thiazide 25 1-30 tablet by ity of mg tablet 00:00: mouth [place] 00 daily. Medical Branch meloxicam 2020-0 Yes [id number] 15mg Take 1 U nivers 15 mg 1-30 tablet by ity of tablet 00:00: mouth [place] 00 daily. Medical Branch pregabalin 2020-0 Yes [id number] 150mg Take 1 Univers (LYRICA) 1-30 capsule by ity o f 150 mg 00:00: mouth 2 [place] capsule 00 (two) Medical times Branch daily. hydroCHLORO 2020-0 Yes [id number] 25mg Take 1 [facility] thiazide 25 1-30 tablet by ity of mg tablet 00:00: mouth [place] 00 daily. Medical Branch meloxicam 2020-0 Yes [id number] 15mg Take 1 U nivers 15 mg 1-30 tablet by ity of tablet 00:00: mouth [place] 00 daily. Medical Branch pregabalin 2020-0 Yes [id number] 150mg Take 1 Univers (LYRICA) 1-30 capsule by ity o f 150 mg 00:00: mouth 2 [place] capsule 00 (two) Medical times Branch daily. meloxicam 2020-0 Yes [id number] 15mg Take 1 U nivers 15 mg 1-30 tablet by ity of tablet 00:00: mouth [place] 00 daily. Medical Branch pregabalin 2020-0 Yes [id number] 150mg Take 1 Univers (LYRICA) 1-30 capsule by ity o f 150 mg 00:00: mouth 2 [place] capsule 00 (two) Medical times Branch daily. meloxicam 2020-0 Yes [id number] 15mg Take 1 U nivers 15 mg 1-30 tablet by ity of tablet 00:00: mouth [place] 00 daily. Medical Branch pregabalin 2020-0 Yes [id number] 150mg Take 1 Univers (LYRICA) 1-30 capsule by ity o f 150 mg 00:00: mouth 2 [place] capsule 00 (two) Medical times Branch daily. meloxicam 2020-0 Yes [id number] 15mg Take 1 U nivers 15 mg 1-30 tablet by ity of tablet 00:00: mouth [place] 00 daily. Medical Branch pregabalin 2020-0 Yes [id number] 150mg Take 1 Univers (LYRICA) 1-30 capsule by ity o f 150 mg 00:00: mouth 2 [place] capsule 00 (two) Medical times Branch daily. meloxicam 2020-0 Yes [id number] 15mg Take 1 U nivers 15 mg 1-30 tablet by ity of tablet 00:00: mouth [place] 00 daily. Medical Branch pregabalin 2020-0 Yes [id number] 150mg Take 1 Univers (LYRICA) 1-30 capsule by ity o f 150 mg 00:00: mouth 2 [place] capsule 00 (two) Medical times Branch daily. meloxicam 2020-0 Yes [id number] 15mg Take 1 U nivers 15 mg 1-30 tablet by ity of tablet 00:00: mouth [place] 00 daily. Medical Branch pregabalin 2020-0 Yes [id number] 150mg Take 1 Univers (LYRICA) 1-30 capsule by ity o f 150 mg 00:00: mouth 2 [place] capsule 00 (two) Medical times Branch daily. meloxicam 2020-0 Yes [id number] 15mg Take 1 U nivers 15 mg 1-30 tablet by ity of tablet 00:00: mouth [place] 00 daily. Medical Branch pregabalin 2020-0 Yes [id number] 150mg Take 1 Univers (LYRICA) 1-30 capsule by ity o f 150 mg 00:00: mouth 2 [place] capsule 00 (two) Medical times Branch daily. meloxicam 2020-0 Yes [id number] 15mg Take 1 U nivers 15 mg 1-30 tablet by ity of tablet 00:00: mouth [place] 00 daily. Medical Branch pregabalin 2020-0 Yes [id number] 150mg Take 1 Univers (LYRICA) 1-30 capsule by ity o f 150 mg 00:00: mouth 2 [place] capsule 00 (two) Medical times Branch daily. meloxicam 2020-0 Yes [id number] 15mg Take 1 U nivers 15 mg 1-30 tablet by ity of tablet 00:00: mouth [place] 00 daily. Medical Branch pregabalin 2020-0 Yes [id number] 150mg Take 1 Univers (LYRICA) 1-30 capsule by ity o f 150 mg 00:00: mouth 2 [place] capsule 00 (two) Medical times Branch daily. meloxicam 2020-0 Yes [id number] 15mg Take 1 U nivers 15 mg 1-30 tablet by ity of tablet 00:00: mouth [place] 00 daily. Medical Branch pregabalin 2020-0 Yes [id number] 150mg Take 1 Univers (LYRICA) 1-30 capsule by ity o f 150 mg 00:00: mouth 2 [place] capsule 00 (two) Medical times Branch daily. meloxicam 2020-0 Yes [id number] 15mg Take 1 U nivers 15 mg 1-30 tablet by ity of tablet 00:00: mouth [place] 00 daily. Medical Branch pregabalin 2020-0 Yes [id number] 150mg Take 1 Univers (LYRICA) 1-30 capsule by ity o f 150 mg 00:00: mouth 2 [place] capsule 00 (two) Medical times Branch daily. meloxicam 2020-0 Yes [id number] 15mg Take 1 U nivers 15 mg 1-30 tablet by ity of tablet 00:00: mouth [place] 00 daily. Medical Branch pregabalin 2020-0 Yes [id number] 150mg Take 1 Univers (LYRICA) 1-30 capsule by ity o f 150 mg 00:00: mouth 2 [place] capsule 00 (two) Medical times Branch daily. meloxicam 2020-0 Yes [id number] 15mg Take 1 U nivers 15 mg 1-30 tablet by ity of tablet 00:00: mouth [place] 00 daily. Medical Branch pregabalin 2020-0 Yes [id number] 150mg Take 1 Univers (LYRICA) 1-30 capsule by ity o f 150 mg 00:00: mouth 2 [place] capsule 00 (two) Medical times Branch daily. meloxicam 2020-0 Yes [id number] 15mg Take 1 U nivers 15 mg 1-30 tablet by ity of tablet 00:00: mouth [place] 00 daily. Medical Branch pregabalin 2020-0 Yes [id number] 150mg Take 1 Univers (LYRICA) 1-30 capsule by ity o f 150 mg 00:00: mouth 2 [place] capsule 00 (two) Medical times Branch daily. meloxicam 2020-0 Yes [id number] 15mg Take 1 U nivers 15 mg 1-30 tablet by ity of tablet 00:00: mouth [place] 00 daily. Medical Branch pregabalin 2020-0 Yes [id number] 150mg Take 1 Univers (LYRICA) 1-30 capsule by ity o f 150 mg 00:00: mouth 2 [place] capsule 00 (two) Medical times Branch daily. meloxicam 2020-0 Yes [id number] 15mg Take 1 U nivers 15 mg 1-30 tablet by ity of tablet 00:00: mouth [place] 00 daily. Medical Branch pregabalin 2020-0 Yes [id number] 150mg Take 1 Univers (LYRICA) 1-30 capsule by ity o f 150 mg 00:00: mouth 2 [place] capsule 00 (two) Medical times Branch daily. meloxicam 2020-0 Yes [id number] 15mg Take 1 U nivers 15 mg 1-30 tablet by ity of tablet 00:00: mouth [place] 00 daily. Medical Branch pregabalin 2020-0 Yes [id number] 150mg Take 1 Univers (LYRICA) 1-30 capsule by ity o f 150 mg 00:00: mouth 2 [place] capsule 00 (two) Medical times Branch daily. meloxicam 2020-0 Yes [id number] 15mg Take 1 U nivers 15 mg 1-30 tablet by ity of tablet 00:00: mouth [place] 00 daily. Medical Branch pregabalin 2020-0 Yes [id number] 150mg Take 1 Univers (LYRICA) 1-30 capsule by ity o f 150 mg 00:00: mouth 2 [place] capsule 00 (two) Medical times Branch daily. meloxicam 2020-0 Yes [id number] 15mg Take 1 U nivers 15 mg 1-30 tablet by ity of tablet 00:00: mouth [place] 00 daily. [facility] Branch meloxicam 2020-0 Yes [id number] 15mg Take 1 U nivers 15 mg 1-30 tablet by ity of tablet 00:00: mouth [place] 00 daily. [facility] Branch meloxicam 2020-0 Yes [id number] 15mg Take 1 U nivers 15 mg 1-30 tablet by ity of tablet 00:00: mouth [place] 00 daily. [facility] Branch meloxicam 2020-0 Yes [id number] 15mg Take 1 U nivers 15 mg 1-30 tablet by ity of tablet 00:00: mouth [place] 00 daily. [facility] Branch meloxicam 2020-0 Yes [id number] 15mg Take 1 U nivers 15 mg 1-30 tablet by ity of tablet 00:00: mouth [place] 00 daily. [facility] Branch meloxicam 2020-0 Yes [id number] 15mg Take 1 U nivers 15 mg 1-30 tablet by ity of tablet 00:00: mouth [place] 00 daily. [facility] Branch meloxicam 2020-0 Yes [id number] 15mg Take 1 U nivers 15 mg 1-30 tablet by ity of tablet 00:00: mouth [place] 00 daily. Medical Branch meloxicam 2019-0 Yes [id number] 15mg Take 1 U nivers 15 mg 1-30 tablet by ity of tablet 00:00: mouth [place] 00 daily. Medical Branch meloxicam 2019-0 Yes [id number] 15mg Take 1 U nivers 15 mg 1-30 tablet by ity of tablet 00:00: mouth [place] 00 daily. Medical Branch pregabalin 2019- No [id number] 150mg Take 1 Univers (LYRICA) -30 12-21 capsule by ity of 150 mg 00:00: 00:00 mouth 2 [place] capsule 00 :00 (two) Medical times Branch daily. hydroCHLORO 2019-2019- No [id number] 25mg Take 1 [facility] thiazide 25 -30 07-09 tablet by it y of mg tablet 00:00: 00:00 mouth [place] 00 :00 daily. Medical Branch hydroCHLORO 2019-2019- No [id number] 25mg Take 1 [facility] thiazide 25 30 07-09 tablet by it y of mg tablet 00:00: 00:00 mouth [place] 00 :00 daily. Medical Branch hydroCHLORO 2019-2019- No [id number] 25mg Take 1 [facility] thiazide 25 -30 07-09 tablet by it y of mg tablet 00:00: 00:00 mouth [place] 00 :00 daily. Medical Branch hydroCHLORO 2019-2019- No [id number] 25mg Take 1 [facility] thiazide 25 30 07-09 tablet by it y of mg tablet 00:00: 00:00 mouth [place] 00 :00 daily. Medical Branch metoprolol 2019- 2020- No [id number] 25mg Take 1 U nivers succinate -30 02-24 tablet by ity of XL 25 mg 24 00:00: 00:00 mouth [place] hr tablet 00 :00 daily. [facility] Branch metoprolol 2019- 2020- No [id number] 25mg Take 1 U nivers succinate 1-30 02-24 tablet by ity of XL 25 mg 24 00:00: 00:00 mouth [place] hr tablet 00 :00 daily. [facility] Branch metoprolol 2019- 2020- No [id number] 25mg Take 1 U nivers succinate 1-30 24 tablet by ity of XL 25 [...] COMPLEX 0-31 mouth. ity of ORAL 17:11: [address] Branch traZODONE 2018-08 Yes 100mg Take 100 Uni vers 100 mg 0-31 mg by ity of tablet 17:11: mouth at [place] [address] bedtime. Medical Branch VITAMIN B 2018-08 Yes Take by Unive rs COMPLEX 0-31 mouth. ity of ORAL 17:11: [address] Branch traZODONE 2018-08 Yes 100mg Take 100 Uni vers 100 mg 0-31 mg by ity of tablet 17:11: mouth at [place] [address] bedtime. Medical Branch VITAMIN B 2018-08 Yes Take by Unive rs COMPLEX 0-31 mouth. ity of ORAL 17:11: [place] [address] Medical Branch traZODONE 2018-08 Yes 100mg Take 100 Uni vers 100 mg 0-31 mg by ity of tablet 17:11: mouth at [place] [address] bedtime. Medical Branch VITAMIN B 2018-08 Yes Take by Unive rs COMPLEX 0-31 mouth. ity of ORAL 17:11: [address] traZODONE 2018-08 Yes 100mg Take 100 Uni vers 100 mg 0-31 mg by ity of tablet 17:11: mouth at [place] [address] bedtime. Medical Branch traZODONE Yes 100mg Take 100 Uni vers 100 mg 8-29 mg by ity of tablet 19:24: mouth at [place] [address] bedtime. Medical Branch traZODONE 0 Yes 100mg Take 100 Uni vers 100 mg 8-29 mg by ity of tablet 19:24: mouth at [place] [address] bedtime. Medical Branch traZODONE Yes 100mg Take 100 Uni vers 100 mg 8-29 mg by ity of tablet 19:24: mouth at [place] [address] bedtime. Medical Branch traZODONE Yes 100mg Take 100 Uni vers 100 mg 8-29 mg by ity of tablet 19:24: mouth at [place] [address] bedtime. Medical Branch traZODONE Yes 100mg Take 100 Uni vers 100 mg 8-29 mg by ity of tablet 19:24: mouth at [place] [address] bedtime. Medical Branch traZODONE Yes 100mg Take 100 Uni vers 100 mg 8-29 mg by ity of tablet 19:24: mouth at [place] [address] bedtime. Medical Branch benztropine Yes 1mg Take 1 mg U nivers 1 mg tablet 8-29 by mouth ity of 14:39: daily. [place] [address] Medical Branch ARIPiprazol Yes 10mg Take 10 [...] by mouth ity of 14:39: daily. [place] 21 [facility] ARIPiprazol 0 Yes 10mg [...] of 14:39: daily. [place] [facility] ARIPiprazol 0 Yes 10mg Take 10 mg Univers e 10 mg 8-29 by mouth 2 ity of tablet 14:39: (two) [place] 21 times Medical daily. Branch DULoxetine 0 Yes Take 3 Unive rs 30 mg 8-29 capsules ity of capsule 14:39: by mouth [place] 21 daily. Medical Branch OLANZapine 2018-0 Yes 10mg Take 10 mg U nivers (ZYPREXA) 8-29 by mouth 2 ity of 10 mg 14:39: (two) [place] tablet 21 times Medical daily. Branch benztropine Yes 1mg Take 1 mg U nivers 1 mg tablet 8-29 by mouth ity of 14:39: daily. [place] [address] Medical Branch ARIPiprazol 0 Yes 10mg Take [...] of 14:39: daily. [place] [facility] ARIPiprazol 0 Yes 10mg Take 10 mg Univers e 10 mg 8-29 by mouth 2 ity of tablet 14:39: (two) [place] 21 times Medical daily. Branch DULoxetine [id number] Yes Take 3 Unive rs 30 mg [...] of 14:39: daily. [place] [facility] ARIPiprazol 2018-0 Yes 10mg Take [...] 8-29 by mouth ity of 14:39: daily. [place] [address] Medical Branch ARIPiprazol Yes 10mg Take 10 mg Univers e 10 mg 8-29 by mouth 2 ity of tablet 14:39: (two) [place] 21 times Medical daily. Branch DULoxetine Yes Take 3 Unive rs 30 mg 8-29 capsules ity of capsule 14:39: by mouth [place] 21 daily. Medical Branch OLANZapine 2018-0 Yes 10mg Take 10 mg U nivers (ZYPREXA) 8-29 by mouth 2 ity of 10 mg 14:39: (two) [place] tablet 21 times Medical daily. Branch benztropine 0 Yes 1mg Take 1 mg U nivers 1 mg tablet 8-29 by mouth ity of 14:39: daily. [place] [facility] ARIPiprazol 2018-0 Yes 10mg Take [...] 21 times Medical daily. Branch metoprolol Yes [id number] 25mg Take 1 Un nneka succinate 8-29 tablet by ity o f XL 25 mg 24 00:00: mouth [place] hr tablet 00 daily. Medical Branch hydroCHLORO Yes [id number] 25mg Take 1 Univers thiazide 25 8-29 tablet by ity of mg tablet 00:00: mouth [place] 00 daily. Medical Branch meloxicam Yes [id number] 15mg Take 1 U nivers 15 mg 8-29 tablet by ity of tablet 00:00: mouth [place] 00 daily. Medical Branch metoprolol Yes [id number] 25mg Take 1 Un nneka succinate 8-29 tablet by ity o f XL 25 mg 24 00:00: mouth [place] hr tablet 00 daily. Medical Branch hydroCHLORO Yes [id number] 25mg Take 1 Univers thiazide 25 8-29 tablet by ity of mg tablet 00:00: mouth [place] 00 daily. Medical Branch meloxicam Yes [id number] 15mg Take 1 U nivers 15 mg 8-29 tablet by ity of tablet 00:00: mouth [place] 00 daily. Medical Branch metoprolol Yes [id number] 25mg Take 1 Un nneka succinate 8-29 tablet by ity o f XL 25 mg 24 00:00: mouth [place] hr tablet 00 daily. Medical Branch hydroCHLORO 2018-0 Yes [id number] 25mg Take 1 Univers thiazide 25 8-29 tablet by ity of mg tablet 00:00: mouth [place] 00 daily. Medical Branch meloxicam Yes [id number] 15mg Take 1 U nivers 15 mg 8-29 tablet by ity of tablet 00:00: mouth [place] 00 daily. Medical Branch metoprolol Yes [id number] 25mg Take 1 Un nneka succinate 8-29 tablet by ity o f XL 25 mg 24 00:00: mouth [place] hr tablet 00 daily. Medical Branch hydroCHLORO 0 Yes [id number] 25mg Take 1 Univers thiazide 25 8-29 tablet by ity of mg tablet 00:00: mouth [place] 00 daily. Medical Branch meloxicam Yes [id number] 15mg Take 1 U nivers 15 mg 8-29 tablet by ity of tablet 00:00: mouth [place] 00 daily. Medical Branch metoprolol Yes [id number] 25mg Take 1 Un nneka succinate 8-29 tablet by ity o f XL 25 mg 24 00:00: mouth [place] hr tablet 00 daily. Medical [facility] hydroCHLORO 2018-0 Yes [id number] 25mg Take 1 Univers thiazide 25 8-29 tablet by ity of mg tablet 00:00: mouth [place] 00 daily. Medical Branch meloxicam Yes [id number] 15mg Take 1 U nivers 15 mg 8-29 tablet by ity of tablet 00:00: mouth [place] 00 daily. Medical Branch metoprolol 0 Yes [id number] 25mg Take 1 Un nneka succinate 8-29 tablet by ity o f XL 25 mg 24 00:00: mouth [place] hr tablet 00 daily. Medical Branch hydroCHLORO Yes [id number] 25mg Take 1 Univers thiazide 25 8-29 tablet by ity of mg tablet 00:00: mouth [place] 00 daily. Medical Branch meloxicam Yes [id number] 15mg Take 1 U nivers 15 mg 8-29 tablet by ity of tablet 00:00: mouth [place] 00 daily. Medical Branch metoprolol Yes [id number] 25mg Take 1 Un nneka succinate 8-29 tablet by ity o f XL 25 mg 24 00:00: mouth [place] hr tablet 00 daily. Medical Branch hydroCHLORO Yes [id number] 25mg Take 1 Univers thiazide 25 8-29 tablet by ity of mg tablet 00:00: mouth [place] 00 daily. Medical Branch meloxicam Yes [id number] 15mg Take 1 U nivers 15 mg 8-29 tablet by ity of tablet 00:00: mouth [place] 00 daily. [facility] Branch metoprolol 2020- No [id number] 25mg Take 1 U nivers succinate 8-28 09-30 tablet by ity of XL 25 mg 24 00:00: 00:00 [place] hr tablet 00 :00 daily. [facility] Branch hydroCHLORO 2020- No [id number] 25mg Take 1 Univers thiazide 25 8-28 09-30 tablet by it y of mg tablet 00:00: 00:00 mouth [place] 00 :00 daily. [facility] Branch meloxicam 2020- No [id number] 15mg Take 1 Univers 15 mg 8-28 09-30 tablet by ity of tablet 00:00: 00:00 mouth [place] 00 :00 daily. Medical Branch metoprolol 2020- No [id number] 25mg Take 1 U nivers succinate 8-28 09-30 tablet by ity of XL 25 mg 24 00:00: 00:00 [place] hr tablet 00 :00 daily. [facility] hydroCHLORO 2020- No [id number] 25mg Take 1 Univers thiazide 25 8-28 09-30 tablet by it y of mg tablet 00:00: 00:00 mouth [place] 00 :00 daily. [facility] Branch meloxicam 2020- No [id number] 15mg Take 1 Univers 15 mg 8-29 -30 tablet by ity of tablet 00:00: 00:00 mouth [place] 00 :00 daily. Medical Branch Dose 2018-0 No Unknown 7- 00:00: 00 Dose 2018-0 No Unknown 7- 00:00: 00 Dose 2018-0 No Unknown 7- 00:00: 00 Dose 2019-0 No Unknown 7 00:00: 00 Dose 2019-0 No Unknown 7 00:00: 00 Dose 2019-0 No Unknown 03-29 00:00: 00 METOPROLOL 2018- 2019- No [id number] TAKE 1 U nivers SUCCINATE 7-06 07-29 TABLET BY ity of XL 25 mg 24 00:00: 00:00 MOUTH [place] hr tablet 00 :00 EVERY DAY Medic al Branch METOPROLOL 2019- No [id number] TAKE 1 U nivers SUCCINATE 7-06 07-29 TABLET BY ity of XL 25 mg 24 00:00: 00:00 MOUTH [place] hr tablet 00 :00 EVERY DAY Medic al Branch hydroCHLORO 2019- No [id number] 25mg Take 1 Univers thiazide 25 -30 -29 tablet by it y of mg tablet 00:00: 00:00 mouth [place] 00 :00 daily. Medical Branch meloxicam 2019- No [id number] 7.5mg Take 1 Univers (MOBIC) 7.5 -30 -29 tablet by it y of mg tablet 00:00: 00:00 mouth [place] 00 :00 daily. Medical Branch hydroCHLORO 2019- No [id number] 25mg Take 1 Univers thiazide 25 -30 -29 tablet by it y of mg tablet 00:00: 00:00 mouth [place] 00 :00 daily. Medical Branch meloxicam 2019- No [id number] 7.5mg Take 1 Univers (MOBIC) 7.5 5-30 [...] Branch VITAMIN B 2019-0 Yes Take by [employer] rs COMPLEX 3-28 mouth. ity of ORAL 16:11: [place] 47 Medical Branch VITAMIN B 2019-0 Yes Take by Unive rs COMPLEX 3-28 mouth. ity of ORAL 16:11: [address] VITAMIN B [id number] Yes Take by Unive rs COMPLEX 3-28 mouth. ity of ORAL 16:11: [address] VITAMIN B 0 Yes Take by Unive rs COMPLEX 3-28 mouth. ity of ORAL 16:11: [address] VITAMIN B Yes Take by Unive rs COMPLEX 3-28 mouth. ity of ORAL 16:11: [address] VITAMIN B Yes Take by Unive rs COMPLEX 3-28 mouth. ity of ORAL 16:11: [address] amlodipine 2019-0 No 1mg 5 mg [...] 8-15 tablet 00:00: 00 cyclobenzap 2018-0 Yes [id number] Bid prn Univers rine 10 mg 8-02 ity of tablet 00:00: [address] Branch cyclobenzap 2018-0 Yes [id number] Bid prn Univers rine 10 mg 8-02 ity of tablet 00:00: [address] Branch cyclobenzap 2018-0 Yes [id number] Bid prn Univers rine 10 mg 8-02 ity of tablet 00:00: [place] 00 [facility] Branch cyclobenzap 2018-0 Yes [id number] Bid prn Univers rine 10 mg 8-02 ity of tablet 00:00: [address] Branch cyclobenzap 2018-0 Yes [id number] Bid prn Univers rine 10 mg 8-02 ity of tablet 00:00: [address] Branch cyclobenzap 2018-0 Yes [id number] Bid prn Univers rine 10 mg 8-02 ity of tablet 00:00: [address] Branch cyclobenzap 2018-0 Yes [id number] Bid prn Univers rine 10 mg 8-02 ity of tablet 00:00: [address] Branch cyclobenzap 2018-0 Yes [id number] Bid prn Univers rine 10 mg 8-02 ity of tablet 00:00: [place] 00 Medical Branch cyclobenzap 2018-0 Yes [id number] Bid prn Univers rine 10 mg 8-02 ity of tablet 00:00: [place] 00 Medical Branch cyclobenzap 2018-0 Yes [id number] Bid prn Univers rine 10 mg 8- ity of tablet 00:00: [place] 00 Medical Branch cyclobenzap 2018-0 2020- No [id number] Bid prn Univers rine 10 mg 8-24 ity of tablet 00:00: 00:00 [place] 00 :00 Medical Branch cyclobenzap 2018-0 2020- No [id number] Bid prn Univers rine 10 mg 8-24 ity of tablet 00:00: 00:00 [place] 00 :00 Medical Branch cyclobenzap 2018-0 2020- No [id number] Bid prn Univers rine 10 mg 04-01 [...] 5-19 capsule 00:00: 00 DULoxetine 2016-0 Yes [id number] Reynold sey HCl 30 MG 3-16 Seybold oral 00:00: - Capsule 00 Externa Delayed l Release Sprinkle hydrOXYzine 2016-0 Yes [id number] Ke lsey HCl 25 MG 3-16 Seybold oral Tablet 00:00: - 00 Externa l DULoxetine 2016-0 Yes [id number] Reynold sey HCl 30 MG 3-16 Seybold oral 00:00: - Capsule 00 Externa Delayed l Release Sprinkle hydrOXYzine 2016-0 Yes [id number] Ke lsey HCl 25 MG 3-16 Seybold oral Tablet 00:00: - 00 Externa l DULoxetine 2016-0 Yes Jelena HCl 30 MG 3-16 Seybold oral 00:00: - Capsule 00 Externa Delayed l Release Sprinkle hydrOXYzine 2016-0 Yes Jelena HCl 25 MG 3-16 Seybold oral Tablet 00:00: - 00 Externa l DULoxetine 2016-0 Yes [id number] Reynold sey HCl 30 MG 3-16 Seybold oral 00:00: - Capsule 00 Externa Delayed l Release Sprinkle hydrOXYzine 2016-0 Yes [id number] Ke lsey HCl 25 MG 3-16 Seybold oral Tablet 00:00: - 00 Externa l DULoxetine 2016-0 Yes [id number] Reynold sey HCl 30 MG 3-16 Seybold oral 00:00: - Capsule 00 Externa Delayed l Release Sprinkle hydrOXYzine 2016-0 Yes [id number] Ke lsey HCl 25 MG 3-16 Seybold oral Tablet 00:00: - 00 Externa l DULoxetine 2016-0 Yes [id number] Reynold sey HCl 30 MG 3-16 Seybold oral 00:00: - Capsule 00 Externa Delayed l Release Sprinkle hydrOXYzine 2015- Yes [id number] Ke lsey HCl 25 MG 3-16 Seybold oral Tablet 00:00: - 00 Externa l DULoxetine 2015-0 2023- No [id number] Ke lsey HCl 30 MG 3-16 04-24 Seybold oral 00:00: 00:00 - Capsule 00 :00 Externa Delayed l Release Sprinkle hydrOXYzine 2015-3- No [id number] K elsey HCl 25 MG 3-16 04-24 Seybold oral Tablet 00:00: 00:00 - 00 :00 Externa l Immunizations Ordered Immunization Filled Date Status Comments Sour ce Name Immunization Name Moderna COVID-19 2022-08-28 Completed Vaccine Bivalent 00:00:00 Booster for ages 6 + years (18+, 12-17, 6-11) Moderna COVID-19 2022-08-28 Completed Vaccine Bivalent 00:00:00 Booster for ages 6 + years (18+, 12-17, 6-11) Moderna COVID-19 2022-08-28 Completed Vaccine Bivalent 00:00:00 Booster for ages 6 + years (18+, 12-17, 6-11) COVID-19 BIVALENT 2022-08-28 Completed Jelena Seybold VACCINE [...] l MODERNA COVID-19 BIVALENT 2022-08-28 Completed Jelena Eatonold BOOSTER VACCINE 00:00:00 - Externa l MODERNA COVID-19 BIVALENT 2022-08-28 Completed Jelena Guevaraybold VACCINE MODERNA 00:00:00 - Externa l COVID-19 BIVALENT 2022-08-28 Completed Jelena Eatonold VACCINE MODERNA 00:00:00 - Externa l COVID-19 BIVALENT 2022-08-28 Completed Jelena Guevaraybold VACCINE MODERNA 00:00:00 - Externa l COVID-19 BIVALENT 2022-08-28 Completed Jelena Guevaraybold VACCINE MODERNA 00:00:00 - Externa l COVID-19 BIVALENT 2022-08-28 Completed Jelena Eatonold VACCINE MODERNA 00:00:00 - Externa l Moderna COVID-19 2021-10-19 Completed Vaccine 00:00:00 Moderna COVID-19 2021-10-19 Completed Vaccine 00:00:00 Moderna COVID-19 2021-10-19 Completed Vaccine 00:00:00 Covid-19 Vaccine 2021-10-19 Completed Jelena delgadold Moderna (Spikevax), 00:00:00 - Ext ernal Mrna-lnp, Bradley Protein, Pf Covid-19 Vaccine 2021-10-19 Completed Jelena Umaña eyradhald [...] Bradley Protein, Pf Covid-19 Vaccine 2021-09-07 Completed [facility] paty Moderna (Spikevax), 00:00:00 - Ext ernal Mrna-lnp, Bradley Protein, Pf Covid-19 Vaccine 2021-09-07 Completed Jelena paty Moderna (Spikevax), 00:00:00 - Ext ernal Mrna-lnp, Bradley Protein, Pf Covid-19 Vaccine 2021-09-07 Completed Jelena S paty Moderna (Spikevax), 00:00:00 - Ext ernal Mrna-lnp, Bradley Protein, Pf Covid-19 Vaccine 2021-09-07 Completed Jelena newman Moderna (Spikevax), 00:00:00 - Ext ernal Mrna-lnp, Bradley Protein, Pf Covid-19 Vaccine 2021-09-07 Completed [facility] paty Moderna (Spikevax), 00:00:00 - Ext ernal Mrna-lnp, Bradley Protein, Pf Covid-19 Vaccine 2021-09-07 Completed Jelena paty Moderna (Spikevax), 00:00:00 - Ext ernal Mrna-lnp, Bradley Protein, Pf Covid-19 Vaccine 2021-09-07 Completed [facility] paty Moderna (Spikevax), 00:00:00 - Ext ernal Mrna-lnp, Bradley Protein, Pf Covid-19 Vaccine 2021-09-07 Completed [facility] paty Moderna (Spikevax), 00:00:00 - Ext ernal Mrna-lnp, Bradley Protein, Pf Covid-19 Vaccine 2021-09-07 Completed [facility] paty Moderna (Spikevax), 00:00:00 - Ext ernal Mrna-lnp, Bradley Protein, Pf Covid-19 Vaccine 2021-09-07 Completed Jelena S alyssajuan antonio Moderna (Spikevax), 00:00:00 - Ext ernal Mrna-lnp, Bradley Protein, Pf Covid-19 Vaccine 2021-09-07 Completed Jelena S eybold Moderna (Spikevax), 00:00:00 - Ext ernal Mrna-lnp, Bradley Protein, Pf Pneumococcal Vaccine, 2019-04-29 Completed Reynold sey Seybold [...] Completed Jelena Seyb old Mcv4,unspecified 00:00:00 - 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 Hepatitis A 2008-02-18 Completed Jelena Seybol d 00:00:00 - External HPV 4 (Human 2008-02-18 Completed Jelena Seybo ld Papillomavirus) 00:00:00 - Externa l Meningococcal 2008-02-18 Completed Jelena Seyb old Mcv4,unspecified 00:00:00 - 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 Hepatitis A 2008-02-18 Completed Jelena Seybol d 00:00:00 - External HPV 4 (Human 2008-02-18 Completed Jelena Seybo ld Papillomavirus) 00:00:00 - Externa l Meningococcal 2008-02-18 Completed Jelena Seyb old Mcv4,unspecified 00:00:00 - 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 Hepatitis A 2008-02-18 Completed Jelena Seybol d 00:00:00 - External HPV 4 (Human 2008-02-18 Completed Jelena Seybo ld Papillomavirus) 00:00:00 - Externa l Meningococcal 2008-02-18 Completed Jelena Seyb old Mcv4,unspecified 00:00:00 - 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 Hepatitis A 2008-02-18 Completed Jelena Seybol d 00:00:00 - External Hepatitis A 2008-02-18 Completed Jelena Seybol d 00:00:00 - External HPV 4 (Human 2008-02-18 Completed Jelena Seybo ld Papillomavirus) 00:00:00 - Externa l Meningococcal 2008-02-18 Completed Jelena Seyb old Mcv4,unspecified 00:00:00 - 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 Hepatitis A 2008-02-18 Completed Jelena Seybol d 00:00:00 - External HPV 4 (Human 2008-02-18 Completed Jelena Seybo ld Papillomavirus) 00:00:00 - Externa l Meningococcal 2008-02-18 Completed Jelena Seyb old Mcv4,unspecified 00:00:00 - 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 HPV 4 (Human 2008-02-18 Completed Jelena Seybo ld Papillomavirus) 00:00:00 - Externa l Meningococcal 2008-02-18 Completed Jelena Seyb old Mcv4,unspecified 00:00:00 - 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 Hepatitis A 2008-02-18 Completed Jelena Seybol d 00:00:00 - External HPV 4 (Human 2008-02-18 Completed Jelena Seybo ld Papillomavirus) 00:00:00 - Externa l Meningococcal 2008-02-18 Completed Jelena Seyb old Mcv4,unspecified 00:00:00 - 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 Hepatitis A 2008-02-18 Completed Jelena Seybol d 00:00:00 - External HPV 4 (Human 2008-02-18 Completed Jelena Seybo ld Papillomavirus) 00:00:00 - Externa l Meningococcal 2008-02-18 Completed Jelena Seyb old Mcv4,unspecified 00:00:00 - 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 Hepatitis A 2008-02-18 Completed Jelena Seybol d 00:00:00 - External HPV 4 (Human 2008-02-18 Completed Jelena Seybo ld Papillomavirus) 00:00:00 - Externa l Meningococcal 2008-02-18 Completed Jelena Seyb old Mcv4,unspecified 00:00:00 - 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 Hepatitis A 2008-02-18 Completed Jelena Seybol d 00:00:00 - External HPV 4 (Human 2008-02-18 Completed Jelena Seybo ld Papillomavirus) 00:00:00 - Externa l Meningococcal 2008-02-18 Completed Jelena Seyb old Mcv4,unspecified 00:00:00 - 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 Hepatitis A 2008-02-18 Completed Jelena Seybol d 00:00:00 - External HPV 4 (Human 2008-02-18 Completed Jelena Seybo ld Papillomavirus) 00:00:00 - Externa l Meningococcal 2008-02-18 Completed Jelena Seyb old Mcv4,unspecified 00:00:00 - 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 Hepatitis A 2008-02-18 Completed Jelena Seybol d 00:00:00 - External HPV 4 (Human 2008-02-18 Completed Jelena Seybo ld Papillomavirus) 00:00:00 - Externa l Meningococcal 2008-02-18 Completed Jelnea Seyb old Mcv4,unspecified 00:00:00 - 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 Hepatitis A 2008-02-18 Completed Jelena Seybol d 00:00:00 - External HPV 4 (Human 2008-02-18 Completed Jelena Seybo ld Papillomavirus) 00:00:00 - Externa l Meningococcal 2008-02-18 Completed Jelena rod Mcv4,unspecified 00:00:00 - 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 Td (adult), 2 2006-05-25 Completed [...] rtussis OPV- Oral Polio 1997-04-05 Completed Jelean henley Vaccine 00:00:00 - External DTP- 1996-08-05 [...] xternal rtussis OPV- Oral Polio 1993 Completed Jleena Guevara ybold Vaccine 00:00:00 - External DTP- [...] xternal rtussis Hepatitis B, 1993 Completed Jelena Seybo ld Unspecified 00:00:00 - External OPV- Oral [...] xternal rtussis Hepatitis A Unknown Completed Jelena Eatonol d - External Hepatitis A Unknown Completed Jelena Eatonol d - External Hepatitis B, Unknown Completed Jelena Guevarajerzy nolasco Unspecified - External Hepatitis B, Unknown Completed Jelena Guevarajerzy nolasco Unspecified - External Hepatitis B, Unknown Completed Jelena Guevarajerzy nolasco Unspecified - External HIB- Haemophilus Unknown [facility] - Exter nal HIB- Haemophilus Unknown [facility] Influenzae Type B - Exter nal HIB- Haemophilus Unknown [facility] Influenzae Type B - Exter nal HIB- [facility]emophilus Unknown [facility] - Exter nal HPV 4 (Human Unknown Completed [facility] Papillomavirus) - Externa l HPV 4 (Human Unknown Completed Jelena [facility] Papillomavirus) - Externa l HPV 4 (Human Unknown Completed Jelena [facility] Papillomavirus) - Externa l Meningococcal Unknown Com[facility] Mcv4,unspecified - 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 MMR- Measles, Mumps, Unknown Completed [facility] Rubella - External MMR- Measles, Mumps, Unknown Completed Ashlie shah [facility] Rubella - External Pneumococcal Vaccine, Unknown Completed Reynold woodard [facility] Conjugate 7 - External Pneumococcal Vaccine, Unknown Completed Reynold woodard [facility] Polysaccharide - External OPV- Oral Polio Unknown Completed Jelena henley Vaccine - External OPV- Oral Polio Unknown Completed Jelena henley Vaccine - External OPV- Oral Polio Unknown Completed Jelena kale Vaccine - External OPV- Oral Polio Unknown Completed Jelena henley Vaccine - External Td (adult), 2 Lf Unknown Completed Jelena danny tetanus toxoid, - Externa l preservative free, adsorbed Tdap- (Boostrix, Unknown [facility] - External Varicella Vaccine Unknown [facility] - [facility] COVID-19 BIVALENT Unknown Completed [facility] VACCINE MODERNA - Externa l Covid-19 Vaccine Unknown Completed [facility] danny Moderna (Spikevax), - Ext ernal Mrna-lnp, Bradley Protein, Pf Covid-19 Vaccine Unknown Completed [facility] Moderna (Spikevax), - Ext ernal Mrna-lnp, Bradley Protein, Pf DTaP Unspecified Unknown Completed [facility] - External DTP- Unknown Completed Jelenayamilet Ibrahim Diphtheria,Tetanus,Pe - E xternal rtussis DTP- Unknown Completed Jelena Guevarakale Diphtheria,Tetanus,Pe - E xternal rtussis DTP- Unknown Completed Jelena Guevarakale Diphtheria,Tetanus,Pe - E xternal rtussis DTP- Unknown Completed Jelena Guevarakale Diphtheria,Tetanus,Pe - E xternal rtussis DTP- Unknown Completed Jelena Guevarakale Diphtheria,Tetanus,Pe - E xternal rtussis Hepatitis A Unknown Completed Jelenayamilet Paiz d - External Hepatitis A Unknown Completed Jelena Guevaraarturo d - External Hepatitis B, Unknown Completed Jelena nolasco Unspecified - External Hepatitis B, Unknown Completed Jelena nolasco Unspecified - External Hepatitis B, Unknown Completed Jelena nolasco Unspecified - External HIB- Haemophilus Unknown Completed Jelena shahjuan antonio Influenzae Type B - Exter nal HIB- Haemophilus Unknown Completed Jelena shahjuan antonio Influenzae Type B - Exter nal HIB- Haemophilus Unknown Completed Jelena shahjuan antonio Influenzae Type B - Exter nal HIB- Haemophilus Unknown Completed Jelena alyssajuan antonio Influenzae Type B - Exter nal HPV 4 (Human Unknown Completed Jelena Sejerzy nolasco Papillomavirus) - Externa l HPV 4 (Human Unknown Completed Jelena Sejerzy nolasco Papillomavirus) - Externa l HPV 4 (Human Unknown Completed Jelena Sejerzy nolasco Papillomavirus) - Externa l Meningococcal Unknown Completed Jelena Guevaratiffany rod Mcv4,unspecified - 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 MMR- Measles, Mumps, Unknown Completed Ashlie alyssa Patrice Rubella - External MMR- Measles, Mumps, Unknown Completed Ashlielayne Ibrahim Rubella - External Pneumococcal Vaccine, Unknown Completed Reynold guevaraemmy Ibrahim Conjugate 7 - External Pneumococcal Vaccine, Unknown Completed Reynold guevaraemmy Ibrahim Polysaccharide - External OPV- Oral Polio Unknown Completed Jelena Guevara kale Vaccine - External OPV- Oral Polio Unknown Completed Jelena Guevara kale Vaccine - External OPV- Oral Polio Unknown Completed Jelena Se henley Vaccine - External OPV- Oral Polio Unknown Completed Jelena Se allenmarcel Vaccine - External Td (adult), 2 Lf Unknown Completed Jelena newman tetanus toxoid, - Externa l preservative free, adsorbed Tdap- (Boostrix, Unknown Completed Jelena S eybold Adacel) - External Varicella Vaccine Unknown Completed Jelena Ibrahim - External COVID-19 BIVALENT Unknown Completed Jelena Ibrahim VACCINE MODERNA - Externa l Covid-19 Vaccine Unknown Completed Jelena newman Moderna (Spikevax), - Ext ernal Mrna-lnp, Bradley Protein, Pf Covid-19 Vaccine Unknown Completed Jelena shahboconstance Moderna (Spikevax), - Ext ernal Mrna-lnp, Bradley Protein, Pf Vital Signs Vital Name Observation Time Observation Value Comments Source Systolic blood 2023-07-01 16:21:00 178 mm[Hg] Jelena Eatonold - pressure External Diastolic blood 2023-07-01 16:21:00 79 mm[Hg] Beth Ibrahim - pressure External Heart rate 2023-07-01 16:21:00 70 /min Jelena shahboconstance - External Body temperature 2023-07-01 16:21:00 36.72 Mera Ashlie shah Seybold - External Respiratory rate 2023-07-01 16:21:00 16 /min Ashlie Eatonold - External Body height 2023-07-01 16:21:00 160 cm Jelena shahboconstance - External Body weight 2023-07-01 16:21:00 135.626 kg Jelena shahbold - External BMI 2023-07-01 16:21:00 52.97 kg/m2 Jelena shahbold - External Systolic blood 2023-06-26 18:00:00 145 mm[Hg] Univer sity [facility] Diastolic blood 2023-06-26 18:00:00 113 mm[Hg] Unive rsity [facility] Heart rate 2023-06-26 18:00:00 78 /min [facility] Body temperature 2023-06-26 18:00:[address] [facility] [place] [place] [facility] 2023-06-26 18:00:00 19 /min [facility] Oxygen saturation in 2023-06-26 18:00:00 97 /min [facility] blood by [facility] Pulse oximetry Branch Body height 2023-06-26 16:11:00 160 cm [facility] Body weight 2023-06-26 16:11:00 129.275 kg [facility] BMI 2023-06-26 16:11:00 50.49 kg/m2 [facility] Heart rate 2023-05-28 15:30:00 64 /min Jelena Umaña eybold - External Body temperature 2023-05-28 15:30:00 36.72 Mera Ashlie ey Seybold - External Respiratory rate 2023-05-28 15:30:00 16 /min Ashlie ey Seybold - External Body height 2023-05-28 15:30:00 160 cm Jelena S eybold - External Body weight 2023-05-28 15:30:00 135.626 kg Jelena Umaña eybold - External BMI 2023-05-28 15:30:00 52.97 kg/m2 Jelena Umaña eybold - External Systolic blood 2023-05-06 15:25:00 100 mm[Hg] Jelena Seybold - pressure External Diastolic blood 2023-05-06 15:25:00 85 mm[Hg] Reynoldse y Seybold - pressure External Heart rate 2023-05-06 15:25:00 81 /min Jelena Umaña eybold - External Body temperature 2023-05-06 15:25:00 [...] Systolic blood 2023-04-24 13:49:00 140 mm[Hg] Jelena Guevaraybold - pressure External Diastolic blood 2023-04-24 13:49:00 [...] Systolic blood 2023-02-18 16:01:00 141 mm[Hg] Jelena Guevaraybold - pressure External Diastolic blood 2023-02-18 16:01:00 [...] saturation in 2022-12-22 14:00:00 97 /min Jelena Eatonold - Arterial blood by External Pulse oximetry Body height 2022-12-08 15:56:00 160 cm Jelena Umaña eybold - External Body weight 2022-12-08 15:56:00 111.131 kg Jelena Umaña eybold - External BMI 2022-12-08 15:56:00 43.40 kg/m2 Jelena Umaña eybold - External Systolic blood 2022-10-28 15:06:00 129 mm[Hg] Jelena Seybold - pressure External Diastolic blood 2022-10-28 15:06:00 86 mm[Hg] Reynoldse y Seybold - pressure [...] External BMI 2022-10-10 14:33:00 50.13 kg/m2 Jelena Umaña eybold - External Systolic blood 2022-09-24 16:23:00 [...] 2020-09-07 15:09:00 126 mm[Hg] Univer sity of [facility] Diastolic blood 2020-09-07 15:09:00 88 mm[Hg] Unive [facility]ity [facility] Heart rate 2020-09-07 15:09:00 76 /min [facility] Body height 2020-09-07 15:09:00 160 cm [facility] Body weight 2020-09-07 15:09:00 114.306 kg [facility] BMI 2020-09-07 15:09:00 44.64 kg/m2 [...] 2020-05-17 16:06:00 36.44 Mera Univ ersity of [facility] Respiratory rate 2020-05-17 16:06:00 18 /min Univ ersity of [facility] Body height 2020-05-17 16:06:00 160 cm [facility] Body weight 2020-05-17 16:06:00 105.688 kg [facility] BMI 2020-05-17 16:06:00 41.27 kg/m2 [facility] Systolic blood 2020-03-08 15:04:00 108 mm[Hg] Univer [facility]ity [facility] Diastolic blood 2020-03-08 15:04:00 69 mm[Hg] Unive rsity of [facility] Heart rate 2020-03-08 15:04:00 74 /min [facility] Body temperature 2020-03-08 15:04:00 36.61 Mera Univ ers[facility] Respiratory rate 2020-03-08 15:04:00 20 /min Univ ersity [facility] Body height 2020-03-08 15:04:00 160 cm [facility] Body weight 2020-03-08 15:04:00 112.583 kg [facility] BMI 2020-03-08 15:04:00 43.97 kg/m2 [facility] Systolic blood 2019-10-25 14:56:00 128 mm[Hg] Univer sity of [facility] Diastolic blood 2019-10-25 14:56:00 92 mm[Hg] Unive rsity of [facility] Heart rate 2019-10-25 14:56:00 72 /min [facility] Body temperature 2019-10-25 14:56:00 36.67 Mera Univ [facility] Body height 2019-10-25 14:56:00 160 cm [facility] Body weight 2019-10-25 14:56:00 110.904 kg [facility] BMI 2019-10-25 14:56:00 43.31 kg/m2 [facility] Oxygen saturation in 2019-10-25 14:56:00 99 /min University of Arterial blood by [facility] Pulse oximetry Branch Systolic blood 2019-10-24 17:13:00 120 mm[Hg] Univer [facility]ity [facility] Diastolic blood 2019-10-24 17:13:00 81 mm[Hg] Unive rsity of [facility] Heart rate 2019-10-24 17:13:00 75 /min [facility] Respiratory rate 2019-10-24 17:13:00 19 /min Univ ersity of [facility] Body height 2019-10-24 17:13:00 160 cm [facility] Body weight 2019-10-24 17:13:00 110.133 kg [facility] BMI 2019-10-24 17:13:00 43.01 kg/m2 [facility] Oxygen saturation in 2019-10-24 17:13:00 99 /min [facility] of Arterial blood by [facility] Pulse oximetry Branch Systolic blood 2019-09-29 16:38:00 93 mm[Hg] Univer sity of [facility] Diastolic blood 2019-09-29 16:38:00 64 mm[Hg] Unive rsity of [facility] Heart rate 2019-09-29 16:38:00 77 /min [facility] Body temperature 2019-09-29 16:38:00 36.5 Mera Univ ersity of [facility] Respiratory rate 2019-09-29 16:38:00 20 /min Univ ersity of [facility] Body height 2019-09-29 16:38:00 160 cm [facility] Body weight 2019-09-29 16:38:00 109.77 kg [facility] BMI 2019-09-29 16:38:00 42.87 kg/m2 [facility] Systolic blood 2019-04-28 14:39:00 105 mm[Hg] Univer [facility]ity [facility] Diastolic blood 2019-04-28 14:39:00 62 mm[Hg] Unive rsity of [facility] Heart rate 2019-04-28 14:39:00 87 /min [facility] Body temperature 2019-04-28 14:39:00 36.94 Mera Univ ersity [facility] Respiratory rate 2019-04-28 14:39:00 18 /min Univ [facility] Body height 2019-04-28 14:39:00 160 cm [facility] Body weight 2019-04-28 14:39:00 123.832 kg [facility] BMI 2019-04-28 14:39:00 48.36 kg/m2 [facility] Systolic blood 2023-04-16 15:02:00 149 mm[Hg] [facility] Diastolic blood 2023-04-16 15:02:00 86 mm[Hg] [facility] Heart rate 2023-04-16 15:02:00 68 /min [facility] Body temperature 2023-04-16 15:02:00 36.67 Mera [facility] Respiratory rate 2023-04-16 15:02:00 17 /min [facility] Oxygen saturation in 2023-04-16 15:02:00 98 /min [facility] Arterial blood by Medical Ce nter Pulse oximetry Body height 2023-04-16 11:02:00 160 cm [facility] Body weight 2023-04-16 11:02:00 123.378 kg [facility] BMI 2023-04-16 11:02:00 48.18 kg/m2 [facility] BP Systolic 2022-09-10 11:46:00 168 [...] /min Respiratory Rate 2019-03-29 08:39:00 16.00 /min Weight Measured 2019-02-08 11:27:00 283.40 pounds Height Measured 2019-02-08 11:27:00 Body Temperature 2019-02-08 11:27:00 Heart Rate 2019-02-08 11:27:00 93.00 /min Respiratory Rate 2019-02-08 11:27:00 BP Systolic 2019-02-08 11:27:00 125 mm[Hg] BP Diastolic 2019-02-08 11:27:00 87 mm[Hg] BP Systolic 2018-11-30 11:02:00 132 mm[Hg] BP Diastolic 2018-11-30 11:02:00 85 mm[Hg] Weight Measured 2018-11-30 11:02:00 299.00 pounds Height Measured 2018-11-30 11:02:00 Body Temperature 2018-11-30 11:02:00 Heart Rate 2018-11-30 11:02:00 72.00 /min Respiratory Rate 2018-11-30 11:02:00 Procedures Procedure Date / Time Performing Clinician Source Performed COMP. METABOLIC PANEL 2023-06-26 16:39:00 Sylvester Hutchinson [facility] ([id number]) Medical Branch CBC WITH DIFF 2023-06-26 16:39:00 Sylvester Hutchinson [facility] CONSENT/REFUSAL FOR 2023-06-26 16:18:39 Doctor Unassigned, [facility] DIAGNOSIS AND TREATMENT [facility] BRAIN WITHOUT IV 2023-04-16 12:20:30 [facility]INALYSIS W/ REFLEX 2023-04-16 11:53:00 Juan Carlos [facility] URINE CULTURE [facility] RAPID DRUG SCREEN, URINE 2023-04-16 11:53:00 [facility] [place] [facility] W/[facility]T COUNT & AUTO 2023-04-16 11:30:00 Juan Carlos [facility] DIFFERENTIAL [facility] [place] COMPREHENSIVE METABOLIC 2023-04-16 11:30:00 Juan Carlos [facility] PANEL [facility] PROTHROMBIN TIME/INR 2023-04-16 11:30:00 [facility] [place] TROPONIN I 2023-04-16 11:30:00 [facility] 2023-04-16 11:30:00 [facility] W/PLT COUNT & AUTO 2023-04-16 11:30:00 [facility] DIFFERENTIAL [facility] EKG-SCANNED 2023-04-16 00:00:00 Provider, [facility] REFERRAL- 2020-09-27 06:01:00 Doctor Lucina, [facility] REQUEST/RESPONSE [facility] MR KNEE LEFT WO CONTRAST 2020-08-20 18:12:04 Alexandre Delgado [facility] Medical Branch NOTICE OF PRIVACY 2020-08-02 06:01:00 Doctor Lucina, [facility] PRACTICES [facility] AGREEMENTS AUTHORIZATIONS 2020-08-02 06:01:00 Doctor Lucina, [facility] AND IRREVOCABLE [facility] ASSIGNMENTS (FORM 2001) VACCINATIONS - CONSENTS, 2020-05-17 05:01:00 Doctor Lucina, [facility] ELIGIBILITY, HISTORY [facility] XR KNEE 3 VW LEFT 2020-03-16 13:13:36 Alexandre Delgado [facility] SCANNED LAB RESULTS 2020-03-08 05:01:00 Doctor Lucina, [facility] ASSIGNMENT OF BENEFITS 2020-02-10 13:57:41 [facility] BC[facility] - PRESCRIPTION / 2019-09-08 06:01:00 Doctor Verdugo, [facility] ORDER [facility] AGREEMENTS AUTHORIZATIONS 2019-04-28 05:01:00 Doctor Lucina, [facility] AND IRREVOCABLE [facility] ASSIGNMENTS (FORM 2001) [id number] Ecg Routine Ecg 2018-06-14 00:00:00 W/least 12 Lds W/i r Plan of Care Planned Activity Planned Date Details Comments Source Future Scheduled 2029-04-29 DTAP/TDAP/TD VACCINES ([address] [facility] Test 00:00:00 - Td or Tdap) [facility] DTAP/TDAP/TD VACCINES (2 - Td or Tdap)] [...] [facility] 00:00:00 Moderna series) [code = [facility] COVID-19 VACCINE (3 - Moderna series)] Future Scheduled 2021-12-14 COVID-19 VACCINE (3 [facility]00 Moderna series) [code = [facility] COVID-19 VACCINE (3 - Moderna series)] Future Scheduled 2021-12-14 COVID-19 VACCINE [...] [facility] Test 00:00:00 Moderna series) [code = [facility] COVID-19 VACCINE (3 - Moderna series)] Future Scheduled 2014 Screening for malignant [facility] Test 00:00:00 neoplasm of cervix Medical C enter (procedure) [code = 222314899] Future Scheduled 2014 Screening for malignant [facility] Test 00:00:00 neoplasm of cervix Medical C enter (procedure) [code = 973339458] Future Scheduled 2014 Screening for malignant [facility] Test 00:00:00 neoplasm of cervix Medical C enter (procedure) [code = 106686373] Future Scheduled 2014 Screening for malignant [facility] Test 00:00:00 neoplasm of cervix Medical C enter (procedure) [code = 955468072] Future Scheduled 2014 Screening for malignant [facility] Test 00:00:00 neoplasm of cervix Medical C enter (procedure) [code = 985169884] Future Scheduled 2013 Lipid panel (procedure) [facility] Test 00:00:00 [code = 41455805] Medical Ce nter Future Scheduled 2013 Lipid panel (procedure) [facility] Test 00:00:00 [code = 99478818] Medical Ce nter Future Scheduled 2013 Lipid panel (procedure) [facility] Test 00:00:00 [code = 31798514] Medical Ce nter Future Scheduled 2013 Lipid panel (procedure) [facility] Test 00:00:00 [code = 50289132] Medical Ce nter Future Scheduled 2013 Lipid panel (procedure) [facility] Test 00:00:00 [code = 96376919] Medical Ce nter Future Scheduled 2011 HEPATITIS [...] screening Medical Cent er (procedure) [code = 878207877] Future Scheduled [address] [facility] 00:00:00 virus screening [facility] Cent [facility] (procedure) [code = 756841303] Future Scheduled [address] [facility] 00:00:00 virus screening [facility] (procedure) [code = 024324272] Future Scheduled [address] [facility] 00:00:00 virus screening [facility] (procedure) [code = 773095904] Future Scheduled [address] [facility] 00:00:00 virus screening Medical Cent [facility] (procedure) [code = 398770612] Future Scheduled [address] [...] Goal Plan of Care Note [code = 93024-1] Goal Plan of Care Note [code = 71413-3] Goal Plan of Care Note [code = 46963-8] Goal Plan of Care Note [code = 34096-8] Goal Plan of Care Note [code = 01543-9] Goal Plan of Care Note [code = 78330-8] Goal Plan of Care Note [code = 57229-5] Goal Plan of Care Note [code = 77729-6] Goal Plan of Care Note [code = 66925-8] Goal Plan of Care Note [code = 51464-1] Goal Plan of Care Note [code = 94006-0] Goal Plan of Care Note [code = 34590-0] Goal Plan of Care Note [code = 93494-8] Goal Plan of Care Note [code = 27679-7] Goal Plan of Care Note [code = 05970-7] Goal Plan of Care Note [code = 96109-5] Goal Plan of Care Note [code = 64982-1] Goal Plan of Care Note [code = 20418-0] Goal Plan of Care Note [code = 68951-1] Goal Plan of Care Note [code = 19713-5] Goal Plan of Care Note [code = 25089-5] Goal Plan of Care Note [code = 64391-7] Goal Plan of Care Note [code = 23090-6] Goal Plan of Care Note [code = 57476-0] Goal Plan of Care Note [code = 11897-1] Goal Plan of Care Note [code = 12218-8] Goal Plan of Care Note [code = 17784-1] Goal Plan of Care Note [code = 92687-3] Goal Plan of Care Note [code = 11687-8] Goal Plan of Care Note [code = 54059-4] Goal Plan of Care Note [code = 35411-4] Goal Plan of Care Note [code = 75424-9] Goal Plan of Care Note [code = 06930-9] Goal Plan of Care Note [code = 80668-1] Goal Plan of Care Note [code = 06653-6] Goal Plan of Care Note [code = 68930-6] Goal Plan of Care Note [code = 82904-5] Goal Plan of Care Note [code = 82883-4] Goal Plan of Care Note [code = 69852-7] Goal Plan of Care Note [code = 68201-4] Goal Plan of Care Note [code = 50335-5] Goal Plan of Care Note [code = 07127-5] Goal Plan of Care Note [code = 71666-5] Goal Plan of Care Note [code = 04329-5] Goal Plan of Care Note [code = 87493-9] Goal Plan of Care Note [code = 31293-1] Goal Plan of Care Note [code = 89750-1] Goal Plan of Care Note [code = 26910-6] Goal Plan of Care Note [code = 59350-3] Goal Plan of Care Note [code = 01897-0] Goal Plan of Care Note [code = 27943-9] Goal Plan of Care Note [code = 74253-3] Goal Plan of Care Note [code = 06985-9] Goal Plan of Care Note [code = 35531-0] Goal Plan of Care Note [code = 21825-3] Goal Plan of Care Note [code = 68730-6] Goal Plan of Care Note [code = 74972-6] Goal Plan of Care Note [code = 68486-8] Goal Plan of Care Note [code = 98876-5] Goal Plan of Care Note [code = 46273-2] Goal Plan of Care Note [code = 51492-8] Goal Plan of Care Note [code = 28227-4] Goal Plan of Care Note [code = 55644-9] Goal Plan of Care Note [code = 81690-2] Goal Plan of Care Note [code = 15586-8] Goal Plan of Care Note [code = 82055-9] Goal Plan of Care Note [code = 55455-1] Goal Plan of Care Note [code = 57546-3] Goal Plan of Care Note [code = 25669-7] Goal Plan of Care Note [code = 52411-7] Goal Plan of Care Note [code = 72476-5] Goal Plan of Care Note [code = 09558-4] Goal Plan of Care Note [code = 35363-3] Goal Plan of Care Note [code = 18589-1] Goal Plan of Care Note [code = 25411-3] Goal Plan of Care Note [code = 90264-0] Goal Plan of Care Note [code = 91655-8] Goal Plan of Care Note [code = 25611-5] Goal Plan of Care Note [code = 20063-7] Goal Plan of Care Note [code = 33419-8] Goal Plan of Care Note [code = 69340-1] Goal Plan of Care Note [code = 70083-1] Goal Plan of Care Note [code = 25094-6] Goal Plan of Care Note [code = 01765-5] Goal Plan of Care Note [code = 33138-3] Goal Plan of Care Note [code = 36558-5] Goal Plan of Care Note [code = 77907-9] Goal Plan of Care Note [code = 95512-4] Goal Plan of Care Note [code = 58172-9] Goal Plan of Care Note [code = 21375-5] Goal Plan of Care Note [code = 51112-5] Goal Plan of Care Note [code = 80479-9] Goal Plan of Care Note [code = 77927-9] Goal Plan of Care Note [code = 69263-1] Goal Plan of Care Note [code = 22614-2] Goal Plan of Care Note [code = 16276-6] Goal Plan of Care Note [code = 07215-0] Goal Plan of Care Note [code = 46714-2] Goal Plan of Care Note [code = 51281-4] Goal Plan of Care Note [code = 17744-3] Goal Plan of Care Note [code = 07252-6] Goal Plan of Care Note [code = 02662-8] Goal Plan of Care Note [code = 49100-8] Goal Plan of Care Note [code = 05060-0] Goal Plan of Care Note [code = 52507-2] Goal Plan of Care Note [code = 52717-4] Goal Plan of Care Note [code = 11764-8] Goal Plan of Care Note [code = 30184-3] Goal Plan of Care Note [code = 37990-6] Encounters Start End Encounter Admission Attending Care Care Encounter Source Date/Time Date/Time Type Type Clinicians Facility Department ID 2023-11-17 2023-11-17 Outpatient JELENA VICK [id number] Jelena 09:00:00 09:00:00 DARLIN Seybo ld 2023-11-04 2023-11-04 Outpatient JELENA ESCAMILLA [id number] Jelena 10:30:00 10:30:00 TREVOR Seybo ld 2023-08-17 2023-08-17 Outpatient DORA WINN [id number] Jelena 10:45:00 10:45:00 Seybol d 2023-08-14 2023-08-14 Outpatient JELENA GARY [id number] Jelena 09:30:00 09:30:00 ROBYN Seybol d 2023-08-12 2023-08-12 Outpatient JELENA KNIGHT [id number] Jelena 11:30:00 11:30:00 Seybol d 2023-08-12 2023-08-12 Outpatient JELENA BADILLO [id number] Jelena 10:30:00 10:30:00 SHIRLEY Seyb old 2023-08-10 2023-08-10 Outpatient JELENA KNIGHT [id number] Jelena 11:30:00 11:30:00 Seybol d 2023-08-10 2023-08-10 Outpatient JELENA WISDOM [id number] Jelena 11:00:00 11:00:00 SANDRA Seybol d 2023-07-27 2023-07-27 Outpatient JELENA RAMON [id number] Jelena 11:15:00 11:15:00 TERRENCE Seybol d 2023-07-24 2023-07-24 Outpatient JELENA KIMBALL [id number] Jelena 08:15:00 08:15:00 LEI Seybo ld 2023-07-24 2023-07-24 Outpatient JELENA KIMBALL [id number] Jelena 08:15:00 08:15:00 LEI Seybo ld 2023-07-19 2023-07-19 Outpatient JELENA GARY [id number] Jelena 00:00:00 00:00:00 ROBYN Seybol d 2023-07-16 2023-07-16 Outpatient JELENA KNIGHT [id number] Jelena 00:00:00 00:00:00 Seybol d 2023-07-15 2023-07-15 Outpatient [facility] [id number] Jarod 09:56:13 09:56:13 1115 F Lee 2023-07-15 2023-07-15 Outpatient JELENA KIMBALL [id number] Jelena 00:00:00 00:00:00 LEI Seybo ld 2023-07-15 2023-07-15 Outpatient JELENA MALHOTRA [id number] Jelena 00:00:00 00:00:00 BYRON Seybol d 2023-07-15 2023-07-15 Outpatient JELENA KNIGHT [id number] Jelena 00:00:00 00:00:00 Seybol d 2023-07-14 2023-07-14 Outpatient STEPHANIESEYONJessica KNIGHT [id number] Jelena 00:00:00 00:00:00 MD ANKITA Seybol d 2023-07-10 2023-07-10 Outpatient KANDI GROSS [id number] Jelena 11:30:00 11:30:00 Seybol d 2023-07-10 2023-07-10 Outpatient JELENA KIMBALL [id number] Jelena 10:00:00 10:00:00 LEI Seybo ld 2023-07-10 2023-07-10 Outpatient LAB90 JELENA KNIGHT [id number] Jelena 09:40:00 09:40:00 Seybol d 2023-07-10 2023-07-10 Outpatient REHANA JELENA KNIGHT [id number] Jelena 00:00:00 00:00:00 LEI Seybo ld 2023-07-09 2023-07-09 Outpatient FARIDAL JELENA KNIGHT [id number] Jelena 00:00:00 00:00:00 ROBYN Seybol d 2023-07-03 2023-07-03 Outpatient FARIDAL, JELENA KNIGHT [id number] Jelena 00:00:00 00:00:00 ROBYN Seybol d 2023-07-02 2023-07-02 Outpatient COOKIE, JELENA KNIGHT [id number] Jelena 08:00:00 08:00:00 ROBYN Seybol d 2023-07-02 2023-07-02 Outpatient FARIDAL, JELENA KNIGHT [id number] Jelena 00:00:00 00:00:00 ROBYN Seybol d 2023-07-01 2023-07-01 Outpatient JELENA KNIGHT [id number] Jelena 12:35:00 12:35:00 Seybol d 2023-07-01 2023-07-01 Outpatient REHANA JELENA KNIGHT [id number] Jelena 11:45:00 11:45:00 LEI Seybo ld 2023-06-30 2023-06-30 Outpatient COOKIE JELENA KNIGHT [id number] Jelena 13:00:00 13:00:00 ROBYN Seybol d 2023-06-30 2023-06-30 Outpatient DORA WINN [id number] Jelena 00:00:00 00:00:00 Seybol d 2023-06-29 2023-06-29 Outpatient JELENA GARY [id number] Jelena 00:00:00 00:00:00 ROBYN Seybol d 2023-06-27 2023-06-27 Outpatient JELENA ORNELAS [id number] Ejlena 00:00:00 00:00:00 JUVENCIO Guevarajerzy nolasco 2023-06-26 2023-06-26 Emergency X EVANGELINA [facility] ERT [id number] Univers 11:06:00 13:33:00 SYLVESTER arshad [facility] 2023-06-26 2023-06-26 Emergency Evangelina [facility] [id number] Univers 11:06:00 13:33:00 Sylvester Umaña HOOPER [id number] i ty [facility] [id number] [facility] [id number] [address] 2023-06-25 2023-06-25 Outpatient JELENA GARY [id number] Jelena 00:00:00 00:00:00 ROBYN Seybol d 2023-06-19 2023-06-19 Outpatient JELENA MALHOTRA [id number] Jelena 00:00:00 00:00:00 BYRON Seybol d 2023-06-19 2023-06-19 Outpatient JELENA MALHOTRA [id number] Jelena 00:00:00 00:00:00 BYRON Seybol d 2023-06-18 2023-06-18 Outpatient JELENA BRIONES [id number] Jelena 00:00:00 00:00:00 AHMED Seybol d 2023-06-07 2023-06-07 Outpatient JELENA GARY [id number] Jelena 00:00:00 00:00:00 ROBYN Seybol d 2023-06-02 2023-06-02 Outpatient JELENA GARY [id number] Jelena 00:00:00 00:00:00 ROBYN Seybol d 2023-06-01 2023-06-01 Outpatient MYKELSEYONJessica KNIGHT [id number] Jelena 00:00:00 00:00:00 MD ANKITA Seybol d 2023-06-01 2023-06-01 Outpatient JELENA GARY [id number] Jelena 00:00:00 00:00:00 ROBYN Seybol d 2023-05-28 2023-05-28 Outpatient MLK045 JELENA KNIGHT [id number] Jelena 11:45:00 11:45:00 Seybol d 2023-05-28 2023-05-28 Outpatient DORA WINN JELENA KNIGHT [id number] Jelena 10:45:00 10:45:00 Seybol d 2023-05-20 2023-05-20 Outpatient ANSELMOJELENA [id number] Jelena 00:00:00 00:00:00 AHMED Seybol d 2023-05-17 2023-05-17 Outpatient JELENA GARY [id number] Jelena 00:00:00 00:00:00 ROBYN Seybol d 2023-05-15 2023-05-15 Outpatient JELENA SCHMIDT [id number] Jelena 00:00:00 00:00:00 JONN Seybol d 2023-05-14 2023-05-14 Outpatient JELENA ANGELO [id number] Jelena 10:15:00 10:15:00 LUKE Seybol d 2023-05-14 2023-05-14 Outpatient JELENA GARY [id number] Jelena 00:00:00 00:00:00 ROBYN Seybol d 2023-05-13 2023-05-13 Outpatient JELENA ANGELO [id number] Jelena 10:15:00 10:15:00 LUKE Seybol d 2023-05-13 2023-05-13 Outpatient PREJELENA ALVA [id number] Jelena 00:00:00 00:00:00 BYRON Seybol d 2023-05-12 2023-05-12 Outpatient HYUN GAURAV KNIGHT [id number] Jelena 00:00:00 00:00:00 Seybol d 2023-05-12 2023-05-12 Outpatient JELENA GARY [id number] Jelena 00:00:00 00:00:00 ROBYN Seybol d 2023-05-11 2023-05-11 Outpatient JELENA GARY [id number] Jelena 09:00:00 09:00:00 ROBYN Seybol d 2023-05-06 2023-05-06 Outpatient LAB90 JELENA KNIGHT [id number] Jelena 11:20:00 11:20:00 Seybol d 2023-05-06 2023-05-06 Outpatient JELENA GARY [id number] Jelena 10:30:00 10:30:00 ROBYN Seybol d 2023-05-01 2023-05-01 Outpatient JELENA GARY [id number] Jelena 00:00:00 00:00:00 ROBYN Seybol d 2023-04-28 2023-04-28 Outpatient JELENA VICK [id number] Jelena 09:00:00 09:00:00 DARLIN Seybo ld 2023-04-26 2023-04-26 Outpatient JELENA GARY [id number] Jelena 00:00:00 00:00:00 ROBYN Seybol d 2023-04-24 2023-04-24 Outpatient GAURAV PURVIS [id number] [place] 09:00:00 09:00:00 Seybol d 2023-04-23 2023-04-23 Outpatient RUSSELL KNIGHT [id number] J[place]ena 00:00:00 00:00:00 MD ANKITA Seybol d 2023-04-20 2023-04-20 Outpatient GAURAV PURVIS [id number] J[place]ena 10:30:00 10:30:00 Seybol d 2023-04-20 2023-04-20 Outpatient JELENA BRIONES [id number] Jelena 00:00:00 00:00:00 AHMED Seybol d 2023-04-17 2023-04-17 Outpatient JELENA NEVAREZ [id number] Jelena 00:00:00 00:00:00 LASUNDRA Seybo ld 2023-04-17 2023-04-17 Outpatient JELENA GARY [id number] Jelena 00:00:00 00:00:00 ROBYN Seybol d 2023-04-16 2023-04-16 Emergency ER [place], [facility] [id number] [facility] 10:54:00 15:04:00 RACHEL 2023-04-16 2023-04-16 Emergency [place], [facility] [id number] [facility] 10:54:00 15:04:00 [facility] 2023-04-16 2023-04-16 Emergency [facility], [facility] [id number] [facility] 10:54:00 15:04:00 [facility] 2023-04-16 2023-04-16 Emergency ER [facility] [id number] [facility] 12:07:04 12:07:04 [place] 2023-04-16 2023-04-16 Outpatient JELENA STOKES [id number] Jelena 10:30:00 10:30:00 SPENSER Seybol d 2023-04-16 2023-04-16 Outpatient JELENA WANG [id number] Jelena 00:00:00 00:00:00 KELSEY Seybol d 2023-04-13 2023-04-13 Outpatient GAURAV PURVIS [id number] [place]ena 10:30:00 10:30:00 Seybol d 2023-03-25 2023-03-25 Outpatient GAURAV PURVIS [id number] Jelena 00:00:00 00:00:00 Seybol d 2023-03-23 2023-03-23 Outpatient GAURAV PURVIS [id number] [place] 10:30:00 10:30:00 Seybol d 2023-03-19 2023-03-19 Outpatient JELENA GARY [id number] Jelena 00:00:00 00:00:00 ROBYN Seybol d 2023-03-18 2023-03-18 Outpatient JELENA MALHOTRA [id number] Jelena 00:00:00 00:00:00 BYRON Seybol d 2023-03-17 2023-03-17 Outpatient RUSSELL KNIGHT [id number] [place]ena 00:00:00 00:00:00 MD ANKITA Seybol d 2023-03-16 2023-03-16 Outpatient JELENA GARY [id number] Jelena 00:00:00 00:00:00 ROBYN Seybol d 2023-03-11 2023-03-11 Outpatient ANSELMO JELENA KNIGHT [id number] Jelena 11:15:00 11:15:00 AHMED Seybol d 2023-03-09 2023-03-09 Outpatient FARIDAL JELENA KNIGHT [id number] Jelena 00:00:00 00:00:00 ROBYN Seybol d 2023-03-05 2023-03-05 Outpatient ANSELMO JELENA KNIGHT [id number] Jelena 00:00:00 00:00:00 AHMED Seybol d 2023-03-02 2023-03-02 Outpatient HUNDL, JELENA KNIGHT [id number] Jelena 00:00:00 00:00:00 ROBYN Seybol d 2023-02-20 2023-02-20 Outpatient FARIDAL, JELENA KNIGHT [id number] Jelena 00:00:00 00:00:00 ROBYN Seybol d 2023-02-20 2023-02-20 Outpatient FARIDAL, JELENA KNIGHT [id number] Jelena 00:00:00 00:00:00 ROBYN Seybol d 2023-02-19 2023-02-19 Outpatient PREZAS, JELENA KNIGHT [id number] Jelena 00:00:00 00:00:00 BYRON Seybol d 2023-02-18 2023-02-18 Outpatient JELENA GARY [id number] Jelena 11:00:00 11:00:00 ROBYN Seybol d 2023-02-16 2023-02-16 Outpatient FARIDAL, JELENA KNIGHT [id number] Jelena 00:00:00 00:00:00 ROBYN Seybol d 2023-02-06 2023-02-06 Outpatient NEVAREZJELENA [id number] Jelena 00:00:00 00:00:00 LASUNDRA Seybo ld 2023-02-06 2023-02-06 Outpatient JELENA JOHN [id number] Jelena 00:00:00 00:00:00 SHANEIKA Seybo ld 2023-02-05 2023-02-05 Outpatient LAB90 JELENA KNIGHT [id number] Jelena 09:10:00 09:10:00 Seybol d 2023-02-05 2023-02-05 Outpatient JELENA MALHOTRA [id number] Jelena 00:00:00 00:00:00 BYRON Seybol d 2023-02-05 2023-02-05 Outpatient KAMILA JELENA KNIGHT [id number] Jelena 00:00:00 00:00:00 OLENA Seybol d 2023-02-02 2023-02-02 Outpatient JELENA STOKES [id number] Jelena 09:30:00 09:30:00 SPENSER Seybol d 2023-02-02 2023-02-02 Outpatient JELENA GARY [id number] Jelena 00:00:00 00:00:00 ROBYN Seybol d 2023-02-02 2023-02-02 Outpatient JELENA GARY [id number] Jelena 00:00:00 00:00:00 ROBYN Seybol d 2023-01-28 2023-01-28 Outpatient ANSELMO JELENA KNIGHT [id number] Jelena 11:00:00 11:00:00 AHMED Seybol d 2023-01-18 2023-01-18 Outpatient JELENA GARY [id number] Jelena 00:00:00 00:00:00 ROBYN Seybol d 2023-01-17 2023-01-17 Outpatient PRENIDAJELENA [id number] Jelena 00:00:00 00:00:00 BYRON Seybol d 2023-01-14 2023-01-14 Outpatient JELENA GARY [id number] Jelena 00:00:00 00:00:00 ROBYN Seybol d 2023-01-07 2023-01-07 Outpatient JELENA GARY [id number] Jelena 00:00:00 00:00:00 ROBYN Seybol d 2023-01-06 2023-01-06 Outpatient GAURAV PURVIS [id number] [place]elena 00:00:00 00:00:00 Seybol d 2023-01-06 2023-01-06 Outpatient JELENA GARY [id number] Jelena 00:00:00 00:00:00 ROBYN Seybol d 2023-01-06 2023-01-06 Outpatient MERRILL JELENA KNIGHT [id number] Jelena 00:00:00 00:00:00 JAROD Seybol d 2023-01-01 2023-01-01 Outpatient COOKIE JELENA KNIGHT [id number] Jelena 10:30:00 10:30:00 ROBYN Seybol d 2023-01-01 2023-01-01 Outpatient HUNDL JELENA KNIGHT [id number] Jelena 00:00:00 00:00:00 ROBYN Seybol d 2022-12-31 2022-12-31 Outpatient PLABPA JELENA KNIGHT [id number] Jelena 09:00:00 09:00:00 Seybol d 2022-12-30 2022-12-30 Outpatient COOKIE JELENA KNIGHT [id number] Jelena 10:30:00 10:30:00 ROBYN Seybol d 2022-12-29 2022-12-29 Outpatient LAB90 JELENA KNIGHT [id number] Jelena 11:20:00 11:20:00 Seybol d 2022-12-29 2022-12-29 Outpatient COOKIE JELENA KNIGTH [id number] Jelena 10:30:00 10:30:00 ROBYN Seybol d 2022-12-29 2022-12-29 Outpatient COOKIE JELENA KNIGHT [id number] Jelena 00:00:00 00:00:00 ROBYN Seybol d 2022-12-29 2022-12-29 Outpatient SEWIELAMJELENA [id number] Jelena 00:00:00 00:00:00 AHMED Seybol d 2022-12-26 2022-12-26 Outpatient PLABPA JELENA KNIGHT [id number] Jelena 09:00:00 09:00:00 Seybol d 2022-12-26 2022-12-26 Outpatient JELENA BYNUM [id number] Jelena 00:00:00 00:00:00 JENNIFER Seybol d 2022-12-26 2022-12-26 Outpatient PREJELENA ALVA [id number] Jelena 00:00:00 00:00:00 BYRON Seybol d 2022-12-25 2022-12-25 Outpatient GAURAV PURVIS JELENA KNIGHT [id number] Jelena 00:00:00 00:00:00 Seybol d 2022-12-24 2022-12-24 Outpatient PLABPA JELENA KNIGHT [id number] Jelena 11:30:00 11:30:00 Seybol d 2022-12-22 2022-12-22 Outpatient NIKKIJAYROALYSSADANDRE KNIGHT [id number] Jelena 09:00:00 09:00:00 Seybol d 2022-12-22 2022-12-22 Outpatient JELENA GARY [id number] Jelena 00:00:00 00:00:00 ROBYN Seybol d 2022-12-20 2022-12-20 Outpatient JELENA CRUZ [id number] Jelena 00:00:00 00:00:00 JALYN Seybol d 2022-12-19 2022-12-19 Outpatient PREJELENA ALVA [id number] Jelena 00:00:00 00:00:00 BYRON Seybol d 2022-12-18 2022-12-18 Outpatient JELENA GARY [id number] Jelena 00:00:00 00:00:00 ROBYN Seybol d 2022-12-18 2022-12-18 Outpatient JELENA GARY [id number] Jelena 00:00:00 00:00:00 ROBYN Seybol d 2022-12-15 2022-12-15 Outpatient MYKELSEYONL JELENA KNIGHT [id number] Jelena 00:00:00 00:00:00 MD ANKITA Seybol d 2022-12-15 2022-12-15 Outpatient JELENA MARTINEZ [id number] Jelena 00:00:00 00:00:00 MANOLO Seybol d 2022-12-15 2022-12-15 Outpatient JELENA GIVENS [id number] Jelena 00:00:00 00:00:00 GAUTAM Seybol d 2022-12-12 2022-12-12 Outpatient JELENA GIVENS [id number] Jelena 10:30:00 10:30:00 GAUTAM Seybol d 2022-12-12 2022-12-12 Outpatient JELENA KNIGHT [id number] Jelena 00:00:00 00:00:00 Seybol d 2022-12-12 2022-12-12 Outpatient PREZAS, JELENA KNIGHT [id number] Jelena 00:00:00 00:00:00 BYRON Seybol d 2022-12-11 2022-12-11 Outpatient PREZAS, JELENA KNIGHT [id number] Jelena 00:00:00 00:00:00 BYRON Seybol d 2022-12-08 2022-12-08 Outpatient MERRILLJELENA [id number] Jelena 10:40:00 10:40:00 JAROD Seybol d 2022-12-08 2022-12-08 Outpatient JELENA KNIGHT [id number] Jelena 10:25:00 10:25:00 Seybol d 2022-12-08 2022-12-08 Outpatient HYUN, GAURAV KNIGHT [id number] Jelena 08:30:00 08:30:00 Seybol d 2022-12-08 2022-12-08 Outpatient HUNDL, JELENA KNIGHT [id number] Jelena 00:00:00 00:00:00 ROBYN Seybol d 2022-12-04 2022-12-04 Outpatient PREZASJELENA [id number] Jelena 00:00:00 00:00:00 BYRON Seybol d 2022-12-04 2022-12-04 Outpatient MERRILL, JELENA KNIGHT [id number] Jelena 00:00:00 00:00:00 JAROD Seybol d 2022-12-04 2022-12-04 Outpatient JELENA KNIGHT [id number] Jelena 00:00:00 00:00:00 Seybol d 2022-12-04 2022-12-04 Outpatient JELENA GARY [id number] Jelena 00:00:00 00:00:00 ROBYN Seybol d 2022-12-01 2022-12-01 Outpatient HUNDLJELENA [id number] Jelena 00:00:00 00:00:00 ROBYN Seybol d 2022-11-27 2022-11-[address], TECH JELENA KNIGHT [id number] Jelena 10:30:00 10:30:00 Seybol d 2022-11-27 2022-11-27 Outpatient MYKELLUCASL JELENA KNIGHT [id number] Jelena 00:00:00 00:00:00 MD ANKITA Seybol d 2022-11-27 2022-11-27 Outpatient VERÓNICAREYNOLDLUCASJessica KNIGHT [id number] Jelena 00:00:00 00:00:00 MD ANKITA Seybol d 2022-11-21 2022-11-21 Outpatient JELENA GARY [id number] Jelena 00:00:00 00:00:00 ROBYN Seybol d 2022-11-20 2022-11-20 Outpatient SFA SFA [id number] Jarod 10:08:21 10:08:21 0323 F Lee 2022-11-19 2022-11-19 Outpatient FARIDALJELENA [id number] Jelena 00:00:00 00:00:00 ROBYN Seybol d 2022-11-14 2022-11-14 Outpatient FARIDALJELENA [id number] Jelena 00:00:00 00:00:00 ROBYN Seybol d 2022-11-14 2022-11-14 Outpatient JELENA KNIGHT [id number] Jelena 00:00:00 00:00:00 Seybol d 2022-11-11 2022-11-11 Outpatient HUNDL, JELENA KNIGHT [id number] Jelena 00:00:00 00:00:00 ROBYN Seybol d 2022-11-07 2022-11-07 Outpatient HUNDLJELENA [id number] Jelena 00:00:00 00:00:00 ROBYN Seybol d 2022-11-07 2022-11-07 Outpatient FARIDALJELENA [id number] Jelena 00:00:00 00:00:00 ROBYN Seybol d 2022-11-07 2022-11-07 Outpatient FARIDAL, JELENA KNIGHT [id number] Jelena 00:00:00 00:00:00 ROBYN Seybol d 2022-11-07 2022-11-07 Outpatient NAVA, JELENA KNIGHT [id number] Jelena 00:00:00 00:00:00 DARLIN Seybo ld 2022-11-07 2022-11-07 Outpatient NAVA, JELENA NKIGHT [id number] Jelena 00:00:00 00:00:00 DARLIN Seybo ld 2022-11-07 2022-11-07 Outpatient NAVA, JELENA KNIGHT [id number] Jelena 00:00:00 00:00:00 DARLIN Seybo ld 2022-11-07 2022-11-07 Outpatient NAVA, JELENA KNIGHT [id number] Jelena 00:00:00 00:00:00 DARLIN Seybo ld 2022-11-07 2022-11-07 Outpatient COOKIE, JELENA KNIGHT [id number] Jelena 00:00:00 00:00:00 ROBYN Seybol d 2022-11-07 2022-11-07 Outpatient HUNDL, JELENA KNIGHT [id number] Jelena 00:00:00 00:00:00 ROBYN Seybol d 2022-11-07 2022-11-07 Outpatient HUNDL, JELNEA KNIGHT [id number] Jelena 00:00:00 00:00:00 ROBYN Seybol d 2022-10-30 2022-10-30 Outpatient SFA [facility] [id number] Jarod 08:26:44 08:26:44 [id number] F Lee 2022-10-30 2022-10-30 Outpatient HUNDL, JELENA KNIGHT [id number] Jelena 00:00:00 00:00:00 ROBYN Seybol d 2022-10-29 2022-10-29 Outpatient HUNDL, JELENA KNIGHT [id number] Jelena 00:00:00 00:00:00 ROBYN Seybol d 2022-10-29 2022-10-29 Outpatient HUNDL, JELENA KNIGHT [id number] Jelena 00:00:00 00:00:00 ROBYN Seybol d 2022-10-29 2022-10-29 Outpatient HUNDL, JELENA KNIGHT [id number] Jelena 00:00:00 00:00:00 ROBYN Seybol d 2022-10-29 2022-10-29 Outpatient NAVA JELENA KNIGHT [id number] Jelena 00:00:00 00:00:00 DARLIN Seybo ld 2022-10-28 2022-10-28 Outpatient LAB47 JELENA KNIGHT [id number] Jelena 09:45:00 09:45:00 Seybol d 2022-10-28 2022-10-28 Outpatient NAVA JELENA KNIGHT [id number] Jelena 09:00:00 09:00:00 DARLIN Seybo ld 2022-10-23 2022-10-23 Outpatient COOKIE JELENA KNIGHT [id number] Jelena 00:00:00 00:00:00 ROBYN Seybol d 2022-10-22 2022-10-22 Outpatient COOKIE JELENA KNIGHT [id number] Jelena 08:00:00 08:00:00 ROBYN Seybol d 2022-10-13 2022-10-13 Outpatient SFA SFA [id number] Jarod 11:24:16 11:24:16 0213 F Lee 2022-10-10 2022-10-10 Outpatient LAB90 JELENA KNIGHT [id number] Jelena 09:25:00 09:25:00 Seybol d 2022-10-10 2022-10-10 Outpatient COOKIE JELENA KNIGHT [id number] Jelena 08:30:00 08:30:00 ROBYN Seybol d 2022-10-10 2022-10-10 Outpatient JELENA GARY [id number] Jelena 00:00:00 00:00:00 ROBYN Seybol d 2022-10-09 2022-10-09 Outpatient HUNDJELENA Lopez [id number] Jelena 08:30:00 08:30:00 ROBYN Seybol d 2022-10-09 2022-10-09 Outpatient JELENA GARY [id number] Jelena 00:00:00 00:00:00 ROBYN Seybol d 2022-09-30 2022-09-30 Outpatient JELENA GARY [id number] Jelena 00:00:00 00:00:00 ROBYN Seybol d 2022-09-26 2022-09-26 Outpatient COOKIE JELENA KNIGHT [id number] Jelena 00:00:00 00:00:00 ROBYN Seybol d 2022-09-24 2022-09-24 Outpatient LAB90 JELENA KNIGHT [id number] Jelena 17:05:00 17:05:00 Seybol d 2022-09-24 2022-09-24 Outpatient COOKIE JELENA KNIGHT [id number] Jelena 11:00:00 11:00:00 ROBYN Seybol d 2022-09-22 2022-09-22 Outpatient SFA SFA [id number] Jarod 09:21:24 09:21:24 0123 Juan Howard 2022-09-22 2022-09-22 Outpatient COOKIE JELENA KNIGHT [id number] Jelena 00:00:00 00:00:00 ROBYN Seybol d 2022-09-17 2022-09-17 Outpatient COOKIE JELENA KNIGHT [id number] Jelena 00:00:00 00:00:00 ROBYN Seybol d 2022-09-12 2022-09-12 Outpatient COOKIE JELENA KNIGHT [id number] Jelena 00:00:00 00:00:00 ROBYN Seybol d 2022-09-11 2022-09-11 Outpatient COOKIE JELENA KNIGHT [id number] Jelena 00:00:00 00:00:00 ROBYN Seybol d 2022-09-10 2022-09-10 Outpatient SFA SFA [id number] Jarod 11:36:44 11:36:44 0111 F Lee 2022-09-10 2022-09-10 Outpatient [id number] 00:00:00 00:00:00 Visit 87da-47c3 7da-47c3-b -sa27-2c1 [id number] 2022-09-09 2022-09-09 Outpatient LAB90 JELENA KNIGHT [id number] Jelena 09:30:00 09:30:00 Seybol d 2022-09-09 2022-09-09 Outpatient JELENA GARY [id number] Jelena 08:30:00 08:30:00 ROBYN mayorga 2022-09-09 2022-09-09 Outpatient JELENA GARY JELENA [id number] Jelena 00:00:00 00:00:00 ROBYN mayorga 2022-09-04 2022-09-04 Outpatient SFA SFA [id number] Jarod 08:29:33 08:29:33 0105 F Lee 2022-09-04 2022-09-04 Outpatient [id number] 00:00:00 00:00:00 Visit 7pd4-0ps1 bd9-4ec7-b -bbc8-d95 bc8-[id number] 2022-08-28 2022-08-28 Outpatient SFA SFA [id number] Jarod 11:35:11 11:35:11 1229 F Lee 2022-08-28 2022-08-28 Outpatient [id number] 00:00:00 00:00:00 Visit 010b-47c2 10b-47c2-b -e5h8-p73 6i0-x759p4 [id number] [id number] 2022-05-24 2022-05-24 [facility] [id number] 15:15:00 18:38:00 [id number] [id number]-843 36 -843c-ca8 [id number] 5eb 2022-03-15 2022-03-15 Outpatient [facility] 7[address] [place] 10:56:00 10:56:00 FLO 0716 da [facility] 2020-11-29 2020-11-29 Outpatient Gracia GRAFF [facility] [id number] Univers 15:30:00 15:30:00 ANNEMARIE magaña [facility] 2020-10-23 2020-10-23 Telephone Alexandre Delgado 1.2.840.114 [id number] [facility] 00:00:00 00:00:00 [place].1.13.10 [place] [phone] [facility] [address] 2020-10-23 2020-10-23 Telephone Alexandre Delgado 1.2.840.114 [id number] 00:00:00 00:00:00 COUNTS INCLUDE 234 BEDS AT THE [facility] 350.1.13.10 HEALTH 4.2.7.2.686 UNIT [id number] 2020-10-12 2020-10-12 Outpatient R TASH [facility] [id number] [facility] 09:00:00 09:00:00 SHEY ity of [facility] 2020-09-27 2020-09-27 Orders Doctor CONNER 1.2.840.114 [id number] Univers 00:00:00 00:00:00 Only Unassigned, LESLEY 350.1.13.10 ity of [place] [facility] 4.2.7.2.686 Marvel as [phone] [facility] [address] 2020-09-27 2020-09-27 Orders Doctor CONNER 1.2.840.114 [id number] 00:00:00 00:00:00 Only Unassigned, [place] 350.1.13.10 [place] [facility] 4.2.7.2.686 [id number] 009 2020-09-20 2020-09-20 [facility] 1.2.840.114 [id number] Univers 00:00:00 00:00:00 Shey Lopez [facility] 350.1.13.10 it y of Surgical 4.2.7.2.686 [place] Specialti [phone] [place] [address] 2020-09-20 2020-09-20 [facility] 1.2.840.114 [id number] 00:00:00 00:00:00 Shey [facility] 350.1.13.10 Surgical 4.2.7.2.686 Specialti [phone] [address] 2020-09-07 2020-09-07 Office Tash [facility] 1.2.641.776 [id number] [facility] 09:03:53 09:52:26 Visit Shey Lopez Health 350.1.13.10 it y of Surgical 4.2.7.2.686 Marvel as Specialti [phone] Me dical es [address] [facility] 2020-09-07 2020-09-07 [facility] 1.2.452.791 [id number] 09:03:53 09:52:26 Visit Shey Lopez [facility] 350.1.13.10 Surgical 4.2.7.2.686 Specialti [id number] [address] [place] 2020-09-07 2020-09-07 [facility] [id number] Univers 09:00:00 09:00:00 [facility] 2020-08-30 2020-08-30 Out[facility] [id number] Univers 08:30:00 08:30:00 [facility] 2020-08-20 2020-08-20 [facility] 1.2.840.114 [id number] Univers 10:11:58 23:59:00 Encounter Health 350.1.13.10 [place] [phone] [place] [id number] ([facility] 2020-08-20 2020-08-20 Outpatient R SANDY [facility] [id number] Univers 10:11:58 23:59:00 ity of [facility] 2020-08-16 2020-08-16 [facility] 1.2.840.114 [id number] Univers 00:00:00 00:00:00 [facility] 350.1.13.10 it y of [place] 4.2.7.2.686 Marvel as Professio [phone] [place] [address] 2020-08-02 2020-08-02 Office Care, Ang Bob B[place] 1.2.840 .114 [id number] Univers 10:40:31 12:20:58 Visit Alexandre Delgado COUNTS INCLUDE 234 BEDS AT THE [facility] 350.1.13.10 it[place] [id number] [address] 2020-08-02 2020-08-02 Outpatient Gracia DELGADO [facility] [id number] Univers 10:30:00 10:30:00 ity [facility] 2020-08-02 2020-08-02 Orders Doctor PRIETO 1.2.840.114 [id number] Univers 00:00:00 00:00:00 Only Unassigned, LESLEY 350.1.13.10 ity of [place] [facility] 4.2.7.2.686 Marvel as [id number] [address] 2020-05-31 2020-05-31 Outpatient Gr[facility] [id number] Univers 08:50:00 08:50:00 ILIANA [facility] 2020-05-24 2020-05-24 Outpatient Gracia DELGADO [facility] [id number] Univers 00:00:00 00:00:00 ity [facility] 2020-05-22 2020-05-22 Outpatient Gr[facility] [id number] Univers 09:50:00 09:50:00 ILIANA [facility] 2020-05-17 2020-05-21 Office Care, Ang Primary [place] 1.2.840 .114 [id number] Univers 11:05:31 09:49:52 Visit Alexandre Delgado COUNTS INCLUDE 234 BEDS AT THE [facility] 350.1.13.10 [place] [phone] [address] 2020-05-21 2020-05-21 Outpatient Gracia DELGADO [facility] [id number] Univers 00:00:00 00:00:00 ity [facility] 2020-05-17 2020-05-17 Outpatient Gracia DELGADO [facility] [id number] Univers 10:30:00 10:30:00 ity [facility] 2020-05-17 2020-05-17 Orders Doctor PRIETO 1.2.840.114 [id number] Univers 00:00:00 00:00:00 Only Unassigned, LESLEY 350.1.13.10 it[place] of [place] [facility] 4.2.7.2.686 Marvel as [phone] [address] 2020-05-08 2020-05-08 Outpatient Gr[facility] [id number] Univers 08:30:00 08:30:00 ANNEMARIE magaña [facility] 2020-05-08 2020-05-08 [facility] 1.2.840.114 [id number] Univers 07:05:41 07:35:41 ne Visit Annemarie Pena SPECIALTY 350.1.13.10 [phone] [place] BYRD 072 [facility] 2020-05-01 2020-05-01 Outpatient [facility] [id number] Univers 09:30:00 09:30:00 ANNEMARIE tafoyaemmy latoya magaña [facility] 2020-04-24 2020-04-24 Outpatient Gracia [facility] [id number] Univers 09:30:00 09:30:00 ANNEMARIE pavithra latoya magaña [facility] 2020-03-08 2020-03-20 Office Care, Ang Primary ROSY 1.2.840 .114 [id number] Univers 10:02:59 09:15:53 Visit Sandy Alexandre COUNTS INCLUDE 234 BEDS AT THE [facility] 350.1.13.10 [place] [phone] [facility] [address] 2020-03-16 2020-03-16 Hospital Alexandre Delgado [facility] 1.2.840.114 [id number] Univers 07:51:00 23:59:00 Encounter [place] 350.1.13.10 [place] [phone] [facility] [address] 2020-03-16 2020-03-16 Outpatient R SANDY ALEXANDRE [facility] [id number] Univers 00:00:00 00:00:00 ity of [facility] 2020-03-13 2020-03-13 Telephone Alexandre Delgado ROSY 1.2.840.114 [id number] Univers 00:00:00 00:00:00 COUNTS INCLUDE 234 BEDS AT THE [facility] 350.1.13.10 it y of [facility] [place] [phone] [facility] [address] [place] 2020-03-08 2020-03-08 [facility]patient [facility] [id number] Univers 10:00:00 10:00:00 ity of [facility] 2020-03-08 2020-03-08 Orders Doctor CONNER 1.2.840.114 [id number] Univers 00:00:00 00:00:00 Only Unassigned, [place] 350.1.13.10 ity of [facility] 4.2.7.2.686 Marvel as [phone] [facility] [address] 2020-02-29 2020-02-29 Telephone Alexandre Delgado 1.2.840.114 [id number] Univers 00:00:00 00:00:00 COUNTS INCLUDE 234 BEDS AT THE [facility] 350.1.13.10 [place] [phone] [address] 2020-02-14 2020-02-14 Telephone [facility] 1.2.994.453 [id number] Univers 00:00:00 00:00:00 Shaylajuanaraymundo Hubert 350.1.13.10 [place] [phone] [address] 2020-02-10 2020-02-10 Outpatient R [facility] [id number] Univers 09:00:00 09:00:00 ity of [facility] 2020-02-10 2020-02-10 Orders Doctor CONNER 1.2.840.114 [id number] Univers 00:00:00 00:00:00 Only Unassigned, L[place] 350.1.13.10 ity of [facility] 4.2.7.2.686 Marvel as [phone] [address] 2020-01-24 2020-01-24 Outpatient [facility] [id number] Univers 10:40:00 10:40:00 DANNIE ity o f [facility] 2020-01-24 2020-01-24 Telemedici [facility] 1.2.840.114 [id number] Univers 07:57:10 08:17:10 ne Visit Shaylajuanaraymundo [place] 350.1.13.10 ity [phone] [place] 9 [facility] 2020-01-18 2020-01-18 Outpatient R [facility] [id number] Univers 13:00:00 13:00:00 ity of [facility] 2019-11-10 2019-11-10 Telephone Alexandre Delgado ROSY 1.2.840.114 [id number] Univers 00:00:00 00:00:00 COUNTS INCLUDE 234 BEDS AT THE [facility] 350.1.13.10 it [place] [phone] [address] 2019-11-03 2019-11-03 Outpatient R ALEXANDRE DELGADO [facility] [id number] Univers 08:15:00 08:15:00 ity [facility] [place] 2019-10-25 2019-10-25 [facility] 1.2.840.114 [id number] Univers 08:48:06 09:27:18 Visit Annemarie [place] 350.1.13.10 [place] [phone] [place] 072 [facility] 2019-10-25 2019-10-25 Outpatient R [facility] [id number] Univers 09:00:00 09:00:00 ANNEMARIE tafoyay o f [facility] 2019-10-24 2019-10-24 Office [facility] 1.2.840.114 [id number] Univers 10:57:17 15:44:20 Visit Dannie [place] 350.1.13.10 ity [facility] [place] [phone] [place] 059 [facility] 2019-10-24 2019-10-24 Outpatient [facility] [id number] Univers 11:00:00 11:00:00 DANNIE tafoyay o f [facility] 2019-09-29 2019-09-29 Office Care, Aries GALLEGOS 1.2.840 .114 [id number] Univers 10:38:08 11:16:42 Visit Alexandre Delgado COUNTS INCLUDE 234 BEDS AT THE [facility] 350.1.13.10 [place] [id number] [address] 2019-09-29 2019-09-29 Outpatient R ALEXANDRE DELGADO [facility] [id number] Univers 10:00:00 11:16:42 ity of [facility] 2019-09-14 2019-09-14 Telephone Alexandre Delgado 1.2.840.114 [id number] Univers 00:00:00 00:00:00 COUNTS INCLUDE 234 BEDS AT THE [facility] 350.1.13.10 [id number] [address] 2019-09-08 2019-09-08 Orders Doctor CONNER 1.2.840.114 [id number] Univers 00:00:00 00:00:00 Only Unassigned, LESLEY 350.1.13.10 ity of [facility] 4.2.7.2.686 [place] as [phone] [address] 2019-05-05 2019-05-05 Telephone Alexandre Delgado 1.2.840.114 [id number] Univers 00:00:00 00:00:00 [facility] 350.1.13.10 [place] [phone] [address] 2019-04-28 2019-04-28 Office Care, Aries GALLEGOS 1.2.840 .114 [id number] Univers 09:26:40 11:38:19 Visit Alexandre Delgado COUNTS INCLUDE 234 BEDS AT THE [facility] 350.1.13.10 [place] [id number] [address] 2019-04-28 2019-04-28 Orders Doctor CONNER 1.2.840.114 [id number] Univers 00:00:00 00:00:00 Only Unassigned, [place] 350.1.13.10 ity of [facility] 4.2.7.2.686 [place] as [phone] [address] Results Test Description Test Time Test Comments Results Result Comments Source COMP. METABOLIC PANEL (86859) 2023-06-26 17:34:22 Test Item Value Reference Range Interpretation Comme nts NA (test code = 1038207361) 141 mmol/L 135-145 K (test code = 6538440425) 3.6 mmol/L 3.5-5.0 CL (test code = 5526481402) 109 mmol/L 98-108 H CO2 TOTAL (test code = 1611472947) 17 mmol/L 23-31 L AGAP (test code = 8091014158) 15 2-16 BUN (test code = 2104751077) 6 mg/dL 7-23 L GLUCOSE (test code = 3096343414) 85 mg/dL 70-110 CREATININE (test code = 0.67 mg/dL 0.50-1.04 4750170428) TOTAL BILI (test code = 0.6 mg/dL 0.1-1.3 5624580366) CALCIUM (test code = 2365312816) 9.7 mg/dL 8.6-10.6 T PROTEIN (test code = 2202801119) 8.8 g/dL 6.3-8.2 H ALBUMIN (test code = 9812240466) 4.5 g/dL 3.5-5.0 ALK PHOS (test code = 5461550441) 65 U/L 34-122 ALTv (test code = 1742-6) 14 U/L 5-35 AST(SGOT) (test code = 5780066328) 20 U/L 13-40 eGFR (test code = 3537015586) 103.3 mL/min/1.73m2 INES (test code = INES) [...] tests). Lab Interpretation (test code = Abnormal 16011-6) [facility] WITH [id number] 17:15:57 Test Item Value Reference Range Interpretation Comments WBC (test code = 6.77 See_Comment [Automated message] 7546-2) The system [employer] generated this result transmitted ref erence range: 4.30 - 1 1.10 10*3/?L. The re ference range was not u sed to interpret this result as normal/abnor mal. RBC (test code = 4.71 See_Comment [Automated message] 911-8) The system [employer] generated this result transmitted ref erence range: [...] RDW-SD (test code 39.8 fL 39.0-49.9 = 75813-8) RDW-CV (test code 13.0 % 12.0-15.5 = 788-0) PLT (test code = 265 See_Comment [Automated message] 397-3) The system [employer] generated this result transmitted ref erence range: 166 - 35 8 10*3/?L. The re ference range was not u sed to interpret this result as normal/abnor mal. MPV (test code = 11.0 fL 9.5-12.9 41729-0) NRBC/100 WBC (test 0.0 See_Comment [Automat ed message] code = 1275274396) The syste m which generated this result transmitted ref erence range: 0.0 - 10 .0 /100 WBCs. The refer ence range was not u sed to interpret this result as normal/abnor mal. NRBC x10^3 (test See_Comment [Automated message] code = 1756473186) The syste m which generated this result transmitted ref erence range: 10*3/?L. The reference range was not used to interpr et this result as normal/abnormal . GRAN MAT (NEUT) % 61.8 % (test code = 770-8) IMM GRAN % (test 0.30 % code = 8617427407) LYMPH % (test code 27.3 % = 736-9) MONO % (test code 5.8 % = 5905-5) EOS % (test code = 4.4 % 713-8) BASO % (test code 0.4 % = 706-2) GRAN MAT 4.18 10*3/uL 1.88-7.09 x10^3(ANC) (test code = 6498317697) IMM GRAN x10^3 0.00-0.06 (test code = 9871365272) LYMPH x10^3 (test 1.85 10*3/uL 1.32-3.29 code = 731-0) MONO x10^3 (test 0.39 10*3/uL 0.33-0.92 code = 742-7) EOS x10^3 (test 0.30 10*3/uL 0.03-0.39 code = 711-2) BASO x10^3 (test 0.03 10*3/uL 0.01-0.07 code = 704-7) [facility] [id number] 14:30:07 Test Item Value Reference Range Interpretation [...] = 762) CBC W/PLT COUNT & AUTO [id number] 14:30:06 Test Item Value Reference Range Interpretation [...] PERCENT (BEAKER) (test code = 2801) TROPONIN [id number] 14:12:53 Test Item Value Reference Range Interpretation [...] failure, acidosis, acute neurological disease, and persistent tachyarrhythmia.[employer] ID - DSENSONCOMPREHENSIVE METABOLIC [id number] 14:10:56 Test Item Value Reference Range Interpretation [...] 30-44 G4 Severl y decreased 15-29 G5 Kidne y failure <15Reported eGF R is based on the CKD-EPI 2020 equation that d oes not use a race coefficientEsti mated GFR is not as accur ate as Creatinine Sharon king[place] in predicting glom erular filtration rate . Estimated GFR is not appl icable for dialysis patien ts [employer] ID - DSENSONOperator ID - DSENSONOperator ID - DSENSONOperator ID - DSENSONOperator ID - DSENSONOperator ID - DSENSONOperator ID - DSENSONOperator ID - DSENSONOperator ID - DSENSONOperator ID - DSENSONOperator ID - DSENSONOperator ID - DSENSONOperator ID - DSENSONOperator ID - DSENSONOperatorID - DSENSONOperator ID - DSENSONOperator ID - DSENSONOperator ID - DSENSONOperator ID - DSENSONPROTHROMBIN [id number] 14:03:14 Test Item Value Reference Range Interpretation Comments PROTIME (BEAKER) 10.3 seconds 9.3-12.0 Final Infor mation (test code = 759) (Auto Outp ut) INR (BEAKER) (test 0.96 See_Comment Final Inf ormation code = 370) (Auto Output) [Automated mess age] The system [employer] generated this result transmitted ref erence range: <=5.90. The reference range was not used to int erpret this result as normal/abnormal . RECOMMENDED COUMADIN/WARFARIN INR THERAPY RANGESSTANDARD DOSE: 2.0 - 3.0 Includes: PROPHYLAXIS for venous thrombosis, systemic embolization; TREATMENT for venous thrombosis and/or pulmonary embolus.HIGH RISK: Target INR is 2.5-3.5 for patients with mechanical heart valves.CT BRAIN WITHOUT IV [id number] 12:52:28[facility] : [...] Signed By: Krystle Quiroz04/16/2023 12:54 CDTWorkstation Name: [id number] w/Microscopic + Reflex to Culture 2023-04-16 12:27:52 Test Item Value Reference Range Interpretation Comments Color, UA (test Yellow code = 5778-6) Clarity, UA (test Slightly Cloudy code = 5767-9) Specific Dup[place], 1.001-1.035 UA (test code = 5811-5) pH, UA (test code = 6.0 5.0-8.0 5803-2) Protein, UA (test Negative Negative code = 72068-5) Glucose, UA (test Negative Negative code = 365) Ketones, UA (test Negative Negative code = 2514-8) Bilirubin, UA (test Negative Negative code = 98119-2) Blood, UA (test Negative Negative code = 17479-1) Nitrite, UA (test Negative Negative code = 5802-4) Leukocytes, UA Negative Negative (test code = 5799-2) Urobilinogen, UA 0.2 (test code = 05538-7) Bacteria, UA (test Few code = 09434-7) Mucus (test code = Few 8247-9) Ca Oxalate Lilly, UA Moderate (test code = 93054-6) RBC, UA (test code <5 See_Comment [Automat ed = 799-7) message] The sy stem which generated this result transmitted reference range : /HPF. The refer ence range was not u sed to interpret th is result as normal/abnormal . WBC, UA (test code <5 See_Comment [Automat ed = 14626-7) message] The sy stem which generated this result transmitted reference range : /HPF. The refer ence range was not u sed to interpret th is result as normal/abnormal . SQUAMOUS EPITHELIAL <5 See_Comment [Automa inge (test code = message] The sy stem 61253-2) which generated this result transmitted reference range : /HPF. The refer ence range was not u sed to interpret th is result as normal/abnormal . Specimen Source (test code = 2795) [facility] 2023-04-16 12:27:52 Test Item Value Reference Range Interpretation Comments Color, UA (test Yellow code = 5778-6) Clarity, UA (test Slightly Cloudy code = 5767-9) Specific [place], 1.001-1.035 UA (test code = 5811-5) pH, UA (test code = 6.0 5.0-8.0 5803-2) Protein, UA (test Negative Negative code = 86823-6) Glucose, UA (test Negative Negative code = 365) Ketones, UA (test Negative Negative code = 2514-8) Bilirubin, UA (test Negative Negative code = 03017-6) Blood, UA (test Negative Negative code = 24684-3) Nitrite, UA (test Negative Negative code = 5802-4) Leukocytes, UA Negative Negative (test code = 5799-2) Urobilinogen, UA 0.2 (test code = 52005-0) Bacteria, UA (test Few code = 31891-2) Mucus (test code = Few 8247-9) Ca Oxalate Lilly, UA Moderate (test code = 39991-1) RBC, UA (test code <5 See_Comment [Automat ed = 799-7) message] The sy stem which generated this result transmitted reference range : /HPF. The refer ence range was not u sed to interpret th is result as normal/abnormal . WBC, UA (test code <5 See_Comment [Automat ed = 54019-1) message] The sy stem which generated this result transmitted reference range : /HPF. The refer ence range was not u sed to interpret th is result as normal/abnormal . SQUAMOUS EPITHELIAL <5 See_Comment [Automa inge (test code = message] The sy stem 13143-7) which generated this result transmitted reference range : /HPF. The refer ence range was not u sed to interpret th is result as normal/abnormal . Specimen Source (test code = 2795) [facility] Reflex [facility] Culture 2023-04-16 12:27:52 Test Item Value Reference Range Interpretation Comments Color, UA (test Yellow code = 5778-6) Clarity, UA (test Slightly Cloudy code = 5767-9) Specific [place], 1.001-1.035 UA (test code = 5811-5) pH, UA (test code = 6.0 5.0-8.0 5803-2) Protein, UA (test Negative Negative code = 59689-6) Glucose, UA (test Negative Negative code = 365) Ketones, UA (test Negative Negative code = 2514-8) Bilirubin, UA (test Negative Negative code = 02351-1) Blood, UA (test Negative Negative code = 91225-4) Nitrite, UA (test Negative Negative code = 5802-4) Leukocytes, UA Negative Negative (test code = 5799-2) Urobilinogen, UA 0.2 (test code = 37647-5) Bacteria, UA (test Few code = 95662-8) Mucus (test code = Few 8247-9) Ca Oxalate Lilly, UA Moderate (test code = 74300-1) RBC, UA (test code <5 See_Comment [Automat ed = 799-7) message] The sy stem which generated this result transmitted reference range : /HPF. The refer ence range was not u sed to interpret th is result as normal/abnormal . WBC, UA (test code <5 See_Comment [Automat ed = 00863-3) message] The sy stem which generated this result transmitted reference range : /HPF. The refer ence range was not u sed to interpret th is result as normal/abnormal . SQUAMOUS EPITHELIAL <5 See_Comment [Automa inge (test code = message] The sy stem 19187-9) which generated this result transmitted reference range : /HPF. The refer ence range was not u sed to interpret th is result as normal/abnormal . Specimen Source (test code = 2795) [facility] Reflex to Culture 2023-04-16 12:27:52 Test Item Value Reference Range Interpretation Comments Color, UA (test Yellow code = 5778-6) Clarity, UA (test Slightly Cloudy code = 5767-9) Specific [place], 1.001-1.035 UA (test code = 5811-5) pH, UA (test code = 6.0 5.0-8.0 5803-2) Protein, UA (test Negative Negative code = 30254-0) Glucose, UA (test Negative Negative code = 365) Ketones, UA (test Negative Negative code = 2514-8) Bilirubin, UA (test Negative Negative code = 37182-2) Blood, UA (test Negative Negative code = 21197-0) Nitrite, UA (test Negative Negative code = 5802-4) Leukocytes, UA Negative Negative (test code = 5799-2) Urobilinogen, UA 0.2 (test code = 53493-9) Bacteria, UA (test Few code = 44899-2) Mucus (test code = Few 8247-9) Ca Oxalate Lilly, UA Moderate (test code = 32311-7) RBC, UA (test code <5 See_Comment [Automat ed = 799-7) message] The sy stem which generated this result transmitted reference range : /HPF. The refer ence range was not u sed to interpret th is result as normal/abnormal . WBC, UA (test code <5 See_Comment [Automat ed = 36744-8) message] The sy stem which generated this result transmitted reference range : /HPF. The refer ence range was not u sed to interpret th is result as normal/abnormal . SQUAMOUS EPITHELIAL <5 See_Comment [Automa inge (test code = message] The sy stem 15052-8) which generated this result transmitted reference range : /HPF. The refer ence range was not u sed to interpret th is result as normal/abnormal . Specimen Source (test code = 2795) [facility] Reflex to Culture 2023-04-16 12:27:52 Test Item Value Reference Range Interpretation Comments Color, UA (test Yellow code = 5778-6) Clarity, UA (test Slightly Cloudy code = 5767-9) Specific [place], 1.001-1.035 UA (test code = 5811-5) pH, UA (test code = 6.0 5.0-8.0 5803-2) Protein, UA (test Negative Negative code = 11028-1) Glucose, UA (test Negative Negative code = 365) Ketones, UA (test Negative Negative code = 2514-8) Bilirubin, UA (test Negative Negative code = 14972-3) Blood, UA (test Negative Negative code = 31292-9) Nitrite, UA (test Negative Negative code = 5802-4) Leukocytes, UA Negative Negative (test code = 5799-2) Urobilinogen, UA 0.2 (test code = 24582-7) Bacteria, UA (test Few code = 64684-3) Mucus (test code = Few 8247-9) Ca Oxalate Lilly, UA Moderate (test code = 88362-9) RBC, UA (test code <5 See_Comment [Automat ed = 799-7) message] The sy stem which generated this result transmitted reference range : /HPF. The refer ence range was not u sed to interpret th is result as normal/abnormal . WBC, UA (test code <5 See_Comment [Automat ed = 54583-2) message] The sy stem which generated this result transmitted reference range : /HPF. The refer ence range was not u sed to interpret th is result as normal/abnormal . SQUAMOUS EPITHELIAL <5 See_Comment [Automa inge (test code = message] The sy stem 33210-7) which generated this result transmitted reference range : /HPF. The refer ence range was not u sed to interpret th is result as normal/abnormal . Specimen Source (test code = 2795) [facility]LEX URINE [id number] 12:27:52 Test Item Value Reference Range Interpretation [...] (test code = 2795) Rapid drug screen, [id number] 12:19:24 Test Item Value Reference Range Interpretation Comments Barbiturate Screen Negative Negative (test code = 30482-2) Benzodiazepine Screen Positive Negative A (test code = 16251-8) Cocaine (Metab.) Negative Negative Screen (test code = 3397-7) Methadone Screen (test Negative Negative code = 86497-5) Opiate Screen (test Negative Negative code = 38549-5) Cannabinoid Screen Positive Negative A (test code = 58135-7) Amph/Methamph Screen Negative Negative (test code = 49366-3) Phencyclidine Screen Negative Negative (test code = 87322-9) pH, UA (test code = 6.0 5.0-8.0 5803-2) INES (test code = INES) DRUG CUTOFF CONC.Cocaine 300 ng/mL Cannabinoid 50 ng/mLBenzodiazepine 200 ng/mLBarbiturate 200 ng/mLPhencyclidine 25 ng/mLOpiate 300 ng/mLMethadone 300 ng/mLAmphetamine/ 1000 ng/mL Methamphetamine This assay provides an unconfirmed qualitative test result for the clinical management of patients in emergency situations. Chain of custody not maintained. Some shni-xoy-thdycba medications, as well as adulterants, may cause inaccurate results. Clinical correlation should be applied. A more comprehensive drug screen or confirmation of a detected drug may be performed upon request.[employer] ID - DSENSONOperator ID - DSENSONOperator ID - DSENSONOperator ID - DSENSONOperator ID - DSENSONOperator ID - DSENSONOperator ID - DSENSONOperator ID - DSENSON Lab Interpretation Abnormal (test code = 33116-0) [facility], [id number] 12:19:24 Test Item Value Reference Range Interpretation Comments Barbiturate Screen Negative Negative (test code = 62118-9) Benzodiazepine Screen Positive Negative A (test code = 90062-7) Cocaine (Metab.) Negative Negative Screen (test code = 3397-7) Methadone Screen (test Negative Negative code = 08868-2) Opiate Screen (test Negative Negative code = 64037-2) Cannabinoid Screen Positive Negative A (test code = 63622-4) Amph/Methamph Screen Negative Negative (test code = 71185-1) Phencyclidine Screen Negative Negative (test code = 71711-7) pH, UA (test code = 6.0 5.0-8.0 5803-2) INES (test code = INES) DRUG CUTOFF CONC.Cocaine 300 ng/mL Cannabinoid 50 ng/mLBenzodiazepine 200 ng/mLBarbiturate 200 ng/mLPhencyclidine 25 ng/mLOpiate 300 ng/mLMethadone 300 ng/mLAmphetamine/ 1000 ng/mL Methamphetamine This assay provides an unconfirmed qualitative test result for the clinical management of patients in emergency situations. Chain of custody not maintained. Some ghcl-zke-fzpbzrc medications, as well as adulterants, may cause inaccurate results. Clinical correlation should be applied. A more comprehensive drug screen or confirmation of a detected drug may be performed upon request.[employer] ID - DSENSONOperator ID - DSENSONOperator ID - DSENSONOperator ID - DSENSONOperator ID - DSENSONOperator ID - DSENSONOperator ID - DSENSONOperator ID - DSENSON Lab Interpretation Abnormal (test code = 34333-7) [facility], [id number] 12:19:24 Test Item Value Reference Range Interpretation Comments Barbiturate Screen Negative Negative (test code = 21848-4) Benzodiazepine Screen Positive Negative A (test code = 81537-3) Cocaine (Metab.) Negative Negative Screen (test code = 3397-7) Methadone Screen (test Negative Negative code = 75127-3) Opiate Screen (test Negative Negative code = 48915-3) Cannabinoid Screen Positive Negative A (test code = 18262-2) Amph/Methamph Screen Negative Negative (test code = 30285-5) Phencyclidine Screen Negative Negative (test code = 28998-3) pH, UA (test code = 6.0 5.0-8.0 5803-2) INES (test code = INES) DRUG CUTOFF CONC.Cocaine 300 ng/mL Cannabinoid 50 ng/mLBenzodiazepine 200 ng/mLBarbiturate 200 ng/mLPhencyclidine 25 ng/mLOpiate 300 ng/mLMethadone 300 ng/mLAmphetamine/ 1000 ng/mL Methamphetamine This assay provides an unconfirmed qualitative test result for the clinical management of patients in emergency situations. Chain of custody not maintained. Some vime-zot-ndvwzyw medications, as well as adulterants, may cause inaccurate results. Clinical correlation should be applied. A more comprehensive drug screen or confirmation of a detected drug may be performed upon request.[employer] ID - DSENSONOperator ID - DSENSONOperator ID - DSENSONOperator ID - DSENSONOperator ID - DSENSONOperator ID - DSENSONOperator ID - DSENSONOperator ID - DSENSON Lab Interpretation Abnormal (test code = 75216-2) [facility], [id number] 12:19:24 Test Item Value Reference Range Interpretation Comments Barbiturate Screen Negative Negative (test code = 69167-2) Benzodiazepine Screen Positive Negative A (test code = 92248-4) Cocaine (Metab.) Negative Negative Screen (test code = 3397-7) Methadone Screen (test Negative Negative code = 56323-0) Opiate Screen (test Negative Negative code = 66510-5) Cannabinoid Screen Positive Negative A (test code = 27289-5) Amph/Methamph Screen Negative Negative (test code = 26503-1) Phencyclidine Screen Negative Negative (test code = 17475-4) pH, UA (test code = 6.0 5.0-8.0 5803-2) INES (test code = INES) DRUG CUTOFF CONC.Cocaine 300 ng/mL Cannabinoid 50 ng/mLBenzodiazepine 200 ng/mLBarbiturate 200 ng/mLPhencyclidine 25 ng/mLOpiate 300 ng/mLMethadone 300 ng/mLAmphetamine/ 1000 ng/mL Methamphetamine This assay provides an unconfirmed qualitative test result for the clinical management of patients in emergency situations. Chain of custody not maintained. Some ejvi-zlo-kktsidg medications, as well as adulterants, may cause inaccurate results. Clinical correlation should be applied. A more comprehensive drug screen or confirmation of a detected drug may be performed upon request.[employer] ID - DSENSONOperator ID - DSENSONOperator ID - DSENSONOperator ID - DSENSONOperator ID - DSENSONOperator ID - DSENSONOperator ID - DSENSONOperator ID - DSENSON Lab Interpretation Abnormal (test code = 85717-1) [facility], [id number] 12:19:24 Test Item Value Reference Range Interpretation Comments Barbiturate Screen Negative Negative (test code = 99281-7) Benzodiazepine Screen Positive Negative A (test code = 37316-5) Cocaine (Metab.) Negative Negative Screen (test code = 3397-7) Methadone Screen (test Negative Negative code = 08585-0) Opiate Screen (test Negative Negative code = 26495-4) Cannabinoid Screen Positive Negative A (test code = 17992-8) Amph/Methamph Screen Negative Negative (test code = 86385-7) Phencyclidine Screen Negative Negative (test code = 79022-9) pH, UA (test code = 6.0 5.0-8.0 5803-2) INES (test code = INES) DRUG CUTOFF CONC.Cocaine 300 ng/mL Cannabinoid 50 ng/mLBenzodiazepine 200 ng/mLBarbiturate 200 ng/mLPhencyclidine 25 ng/mLOpiate 300 ng/mLMethadone 300 ng/mLAmphetamine/ 1000 ng/mL Methamphetamine This assay provides an unconfirmed qualitative test result for the clinical management of patients in emergency situations. Chain of custody not maintained. Some mejd-bgc-glwhker medications, as well as adulterants, may cause inaccurate results. Clinical correlation should be applied. A more comprehensive drug screen or confirmation of a detected drug may be performed upon request.[employer] ID - DSENSONOperator ID - DSENSONOperator ID - DSENSONOperator ID - DSENSONOperator ID - DSENSONOperator ID - DSENSONOperator ID - DSENSONOperator ID - DSENSON Lab Interpretation Abnormal (test code = 06791-6) [facility], [id number] 12:19:24 Test Item Value Reference Range Interpretation [...] situations. Chain of custody not maintained. Some dpkb-qtj-rgtevea medications, as well as adulterants, may cause inaccurate results. Clinical correlation should be applied. A more comprehensive drug screen or confirmation of a detected drug may be performed upon request.[employer] ID - DSENSONOperator ID - DSENSONOperator ID - DSENSONOperator ID - DSENSONOperator ID - DSENSONOperator ID - DSENSONOperator ID - DSENSONOperator ID - DSENSONTSH, THIRD GENERATION 2022-09-11 04:08:38 Test Item Value Reference Range Interpretation Comments TSH, THIRD 2.060 UIU/ML 0.400-4.100 UNLESS OTHERWI SE GENERATION (test INDICATED, ALL TESTING code = 2821) [facility], [address] DIRECTOR: Tracey COBBIA NUMBER [id number] CAP ACCREDITATION N O. [id number] COMPREHENSIVE METABOLIC [id number] 03:23:31 Test Item Value Reference Range Interpretation Comments GLUCOSE (test code = 80 MG/DL 70-99 2216) BUN (test code = 7 MG/DL -20 2207) CREATININE (test 0.55 MG/DL 0.60-1.30 L code = 2214) eGFR (2020 CKD-EPI) 127 >60 (test code = 37528) ML/MIN/1.73 CALC BUN/CREAT (test 13 RATIO - code = 2235) SODIUM (test code = 138 MEQ/L 723-031 6618) POTASSIUM (test code 3.9 MEQ/L 3.5-5.4 = [...] U/L 5-40 2218) CBC W/AUTO DIFF WITH [id number] 02:00:05 Test Item Value Reference Range Interpretation [...] RBCS 0.00 K/UL 0.00-0.11 (test code = 06358) CT/NG, NAAT, [id number] 20:52:50 Test Item Value Reference Range Interpretation Comments GONORRHEA, NAAT NEGATIVE NEGATIVE Note: Testi ng is (test code = 25003) performe d with [employer] EDEL 6800/8800 systems using real-time polymerase cali n reaction (PCR) method. CHLAMYDIA, NAAT NEGATIVE NEGATIVE Note: Testi ng is (test code = 55717) performe d with [employer] EDEL 6800/8800 systems using real-time polymerase cali n reaction (PCR) method. HEPATITIS PANEL, [id number] 05:02:20 Test Item Value Reference Range Interpretation Comments HEPATITIS A IgM (test NON-REACTIVE NON-REACTIVE code = 72557) HEPATITIS B CORE IgM NON-REACTIVE NON-REACTIVE (test code = 4644) HEPATITIS B SURF AG NON-REACTIVE NON-REACTIVE (test code = 2739) HEPATITIS C ANTIBODY NON-REACTIVE NON-REACTIVE (test code = 4675) INTERPRETATION (NOTE) Hepatitis A HEPATITIS A: (test code sero logy shows no = 2552) evidence of acu te hepatitis A. INTERPRETATION (NOTE) Hepatitis B HEPATITIS B: (test code sero logy shows no = 28421) evidence of acu te hepatitis B and no indication of exposure to hepatitis B vir us in the previous alejandra eight months. INTERPRETATION (NOTE) Hepatitis C HEPATITIS C: (test code sero logy shows no = 91518) evidence of exposure to hepatitisC viru s at this time. I t can take up to 12 months after exposure tothe hepatitis C vir us for antibodies to become detectab le in the blood in certain patient s. HIV 1/2 4TH GEN, RFLX [id number] 05:02:20 Test Item Value Reference Range Interpretation Comments HIV 1/2 4TH GEN, NON-REACTIVE NON-REACTIVE UNLESS OTH ERWISE RFLX CONF (test INDICATED, A LL TESTING code = 3514) PERFORMED [facility] PATHOLOG[facility], [facility]. [address] [place] [id number] [place] [address] DIRECTOR: [place] AGUIRRE M.D. IA NUMBER [id number] CAP ACCREDITATION N O. [id number] RPR REFLEX TO T. PALLIDUM - [id number] 04:28:08 Test Item Value Reference Range Interpretation Comments RPR (test code = 78162) NON-REACTIVE NON-REACTIVE RPR TITER (test code = 3500) NOT INDIC. TITER NOT INDIC. CT/NG, TMA, [id number] 00:00:00 Test Item Value Reference Range Interpretation Comments GONORRHEA, NAAT (test code = 16655) NEGATIVE CHLAMYDIA, NAAT (test code = 60158) NEGATIVE CT/NG, TMA, [id number] 00:00:00 Test Item Value Reference Range Interpretation Comments GONORRHEA, NAAT (test code = 90895) NEGATIVE CHLAMYDIA, NAAT (test code = 11218) NEGATIVE RPR REFLEX TO T. PALLIDUM - [id number] 00:00:00 Test Item Value Reference Range Interpretation Comments RPR (test code = 66559) NON-REACTIVE RPR TITER (test code = 3500) NOT INDIC. TITER RPR REFLEX TO T. PALLIDUM - [id number] 00:00:00 Test Item Value Reference Range Interpretation Comments RPR (test code = 44212) NON-REACTIVE RPR TITER (test code = 3500) NOT INDIC. TITER ACUTE HEPATITIS [id number] 00:00:00 Test Item Value Reference Range Interpretation Comments HEPATITIS A IgM (test code = NON-REACTIVE 89751) HEPATITIS B CORE IgM (test code NON-REACTIVE = 4644) HEPATITIS B SURF AG (test code = NON-REACTIVE 2739) HEPATITIS C ANTIBODY (test code NON-REACTIVE = 4675) INTERPRETATION HEPATITIS A: (NOTE) (test code = 2552) INTERPRETATION HEPATITIS B: (NOTE) (test code = 15208) INTERPRETATION HEPATITIS C: (NOTE) (test code = 70683) ACUTE HEPATITIS [id number] 00:00:00 Test Item Value Reference Range Interpretation Comments HEPATITIS A IgM (test code = NON-REACTIVE 16660) HEPATITIS B CORE IgM (test code NON-REACTIVE = 4644) HEPATITIS B SURF AG (test code = NON-REACTIVE 2739) HEPATITIS C ANTIBODY (test code NON-REACTIVE = 4675) INTERPRETATION HEPATITIS A: (NOTE) (test code = 2552) INTERPRETATION HEPATITIS B: (NOTE) (test code = 25164) INTERPRETATION HEPATITIS C: (NOTE) (test code = 54091) HIV 1/2 4TH GEN, RFLX [id number] 00:00:00 Test Item Value Reference Range Interpretation Comments HIV 1/2 4TH GEN, RFLX CONF (test NON-REACTIVE code = 3514) HIV 1/2 4TH GEN, RFLX [id number] 00:00:00 Test Item Value Reference Range Interpretation Comments HIV 1/2 4TH GEN, RFLX CONF (test NON-REACTIVE code = 3514) VITAMIN D, 25 [id number] 03:25:23 Test Item Value Reference Range Interpretation [...] ATED, ALL TESTING PERFORM ED ATCLINICAL PATH [facility], [facility]. [address] [place] [address] LABORATORY DIRE CTOR: Rebeca COBB. CLIA NUMBER [id number] CAP ACCREDITATION N O. [id number] HIV 1/2 4TH GEN, RFLX [id number] 03:00:39 Test Item Value Reference Range Interpretation Comments HIV 1/2 4TH GEN, RFLX CONF (test NON-REACTIVE NON-REACTIVE code = 3514) HIV AB/AG COMBO RFLX [id number] 00:00:00 Test Item Value Reference Range Interpretation Comments HIV 1/2 4TH GEN, RFLX CONF (test NON-REACTIVE code = 3514) HIV AB/AG COMBO RFLX [id number] 00:00:00 Test Item Value Reference Range Interpretation Comments HIV 1/2 4TH GEN, RFLX CONF (test NON-REACTIVE code = 3514) VITAMIN D, 25 [id number] 00:00:00 Test Item Value Reference Range Interpretation Comments VITAMIN D, 25 OH (test code = 4958) 27 NG/ML VITAMIN D, 25 [id number] 00:00:00 Test Item Value Reference Range Interpretation Comments VITAMIN D, 25 OH (test code = 4958) 27 NG/ML HIV AB/AG COMBO RFLX [id number] 00:00:00 Test Item Value Reference Range Interpretation Comments HIV 1/2 4TH GEN, RFLX CONF (test NON-REACTIVE code = 3514) HIV AB/AG COMBO RFLX [id number] 00:00:00 Test Item Value Reference Range Interpretation Comments HIV 1/2 4TH GEN, RFLX CONF (test NON-REACTIVE code = 3514) VITAMIN D, 25 [id number] 00:00:00 Test Item Value Reference Range Interpretation Comments VITAMIN D, 25 OH (test code = 4958) 27 NG/ML VITAMIN D, 25 [id number] 00:00:00 Test Item Value Reference Range Interpretation Comments VITAMIN D, 25 OH (test code = 4958) 27 NG/ML HIV AB/AG COMBO RFLX [id number] 00:00:00 Test Item Value Reference Range Interpretation Comments HIV 1/2 4TH GEN, RFLX CONF (test NON-REACTIVE code = 3514) HIV AB/AG COMBO RFLX [id number] 00:00:00 Test Item Value Reference Range Interpretation Comments HIV 1/2 4TH GEN, RFLX CONF (test NON-REACTIVE code = 3514) VITAMIN D, 25 [id number] 00:00:00 Test Item Value Reference Range Interpretation Comments VITAMIN D, 25 OH (test code = 4958) 27 NG/ML VITAMIN D, 25 [id number] 00:00:00 Test Item Value Reference Range Interpretation Comments VITAMIN D, 25 OH (test code = 4958) 27 NG/ML TSH, THIRD [id number] 00:19:50 Test Item Value Reference Range Interpretation Comments TSH, THIRD GENERATION (test code 1.090 UIU/ML 0.400-4.100 = 2821) [id number] 00:00:00 Test Item Value Reference Range Interpretation Comments TSH, THIRD GENERATION (test code 1.090 UIU/ML = 2821) [id number] 00:00:00 Test Item Value Reference Range Interpretation Comments TSH, THIRD GENERATION (test code 1.090 UIU/ML = 2821) [id number] 00:00:00 Test Item Value Reference Range Interpretation Comments TSH, THIRD GENERATION (test code 1.090 UIU/ML = 2821) [id number] 00:00:00 Test Item Value Reference Range Interpretation Comments TSH, THIRD GENERATION (test code 1.090 UIU/ML = 2821) [id number] 00:00:00 Test Item Value Reference Range Interpretation Comments TSH, THIRD GENERATION (test code 1.090 UIU/ML = 2821) [id number] 00:00:00 Test Item Value Reference Range Interpretation Comments TSH, THIRD GENERATION (test code 1.090 UIU/ML = 2821) [id number] 00:00:00 Test Item Value Reference Range Interpretation Comments TSH, THIRD GENERATION (test code 1.090 UIU/ML = 2821) [id number] 00:00:00 Test Item Value Reference Range Interpretation Comments TSH, THIRD GENERATION (test code 1.090 UIU/ML = 2821) [id number] 00:00:00 Test Item Value Reference Range Interpretation Comments TSH, THIRD GENERATION (test code 1.090 UIU/ML = 2821) LIPID [id number] 23:59:41 Test Item Value Reference Range Interpretation [...] MOREINFORMATION , SEE CLIENT ANNOUNCE MENT AT [email or web address] RISK RATIO LDL/HDL 1.79 RATIO <3.22 (test code = 2238) COMPREHENSIVE METABOLIC [id number] 23:59:41 Test Item Value Reference Range Interpretation Comments GLUCOSE (test code = 77 MG/DL 70-99 2216) BUN (test code = 8 MG/DL -20 2207) CREATININE (test 0.67 MG/DL 0.60-1.30 EFFECTIVE code = 2214) 08/12/2021, [facility] HAS IMPLEMENTED THE NKF-ASN RECOMME NDED KD-EPI EGF R REFIT CALCULATI ON THAT DOES NOT INCLUDE A COEFFICIENT FOR RACE. FOR MORE INFORMATION, SE E ANNOUNCEMENT [email or web address] eGFR (2020 CKD-EPI) 122 >60 (test code = 89785) ML/MIN/1.73 CALC BUN/CREAT (test 12 RATIO 6-28 code = 2235) SODIUM (test code = 141 MEQ/L 225-420 6845) POTASSIUM (test code 4.0 MEQ/L 3.5-5.4 = [...] = 92 U/L 5-40 H 2218) HEMOGLOBIN [id number] 03:14:31 Test Item Value Reference Range Interpretation Comments HEMOGLOBIN A1c (test code = 74664) 6.0 % 4.2-5.6 H CBC W/AUTO DIFF WITH [id number] 03:06:02 Test Item Value Reference Range Interpretation [...] RBCS 0.00 K/UL 0.00-0.11 (test code = 77065) CBC W/AUTO [id number] 00:00:00 Test Item Value Reference Range Interpretation [...] NUCLEATED RBCS (test code = 0.00 K/UL 78980) CBC W/AUTO [id number] 00:00:00 Test Item Value Reference Range Interpretation [...] NUCLEATED RBCS (test code = 0.00 K/UL 59939) CBC W/AUTO [id number] 00:00:00 Test Item Value Reference Range Interpretation [...] NUCLEATED RBCS (test code = 0.00 K/UL 68117) HEMOGLOBIN [id number] 00:00:00 Test Item Value Reference Range Interpretation Comments HEMOGLOBIN A1c (test code = 01880) 6.0 % HEMOGLOBIN [id number] 00:00:00 Test Item Value Reference Range Interpretation Comments HEMOGLOBIN A1c (test code = 44256) 6.0 % HEMOGLOBIN [id number] 00:00:00 Test Item Value Reference Range Interpretation Comments HEMOGLOBIN A1c (test code = 91579) 6.0 % LIPID [id number] 00:00:00 Test Item Value Reference Range Interpretation Comments CHOLESTEROL (test code = 2210) 124 MG/DL TRIGLYCERIDES (test code = 2232) 69 MG/DL HDL CHOLESTEROL (test code = 2220) 39 MG/DL CALC LDL CHOL (test code = 2237) 70 MG/DL RISK RATIO LDL/HDL (test code = 1.79 RATIO 2238) LIPID [id number] 00:00:00 Test Item Value Reference Range Interpretation Comments CHOLESTEROL (test code = 2210) 124 MG/DL TRIGLYCERIDES (test code = 2232) 69 MG/DL HDL CHOLESTEROL (test code = 2220) 39 MG/DL CALC LDL CHOL (test code = 2237) 70 MG/DL RISK RATIO LDL/HDL (test code = 1.79 RATIO 2238) COMPREHENSIVE METABOLIC [id number] 00:00:00 Test Item Value Reference Range Interpretation Comments GLUCOSE (test code = 2217) 77 MG/DL BUN (test code = 2208) 8 MG/DL CREATININE (test code = 2214) 0.67 MG/DL eGFR (2020 CKD-EPI) (test 122 ML/MIN/1.73 code = 27757) CALC BUN/CREAT (test code = 12 RATIO [...] code = 2219) 92 U/L COMPREHENSIVE METABOLIC [id number] 00:00:00 Test Item Value Reference Range Interpretation Comments GLUCOSE (test code = 2217) 77 MG/DL BUN (test code = 2208) 8 MG/DL CREATININE (test code = 2214) 0.67 MG/DL eGFR (2020 CKD-EPI) (test 122 ML/MIN/1.73 code = 11829) CALC BUN/CREAT (test code = 12 RATIO [...] code = 2219) 92 U/L CBC W/AUTO [id number] 00:00:00 Test Item Value Reference Range Interpretation [...] NUCLEATED RBCS (test code = 0.00 K/UL 11322) CBC W/AUTO [id number] 00:00:00 Test Item Value Reference Range Interpretation [...] NUCLEATED RBCS (test code = 0.00 K/UL 45785) CBC W/AUTO [id number] 00:00:00 Test Item Value Reference Range Interpretation [...] NUCLEATED RBCS (test code = 0.00 K/UL 58227) CBC W/AUTO [id number] 00:00:00 Test Item Value Reference Range Interpretation [...] NUCLEATED RBCS (test code = 0.00 K/UL 60739) HEMOGLOBIN [id number] 00:00:00 Test Item Value Reference Range Interpretation Comments HEMOGLOBIN A1c (test code = 42427) 6.0 % HEMOGLOBIN [id number] 00:00:00 Test Item Value Reference Range Interpretation Comments HEMOGLOBIN A1c (test code = 23445) 6.0 % HEMOGLOBIN [id number] 00:00:00 Test Item Value Reference Range Interpretation Comments HEMOGLOBIN A1c (test code = 22547) 6.0 % LIPID [id number] 00:00:00 Test Item Value Reference Range Interpretation Comments CHOLESTEROL (test code = 2210) 124 MG/DL TRIGLYCERIDES (test code = 2232) 69 MG/DL HDL CHOLESTEROL (test code = 2220) 39 MG/DL CALC LDL CHOL (test code = 2237) 70 MG/DL RISK RATIO LDL/HDL (test code = 1.79 RATIO 2238) LIPID [id number] 00:00:00 Test Item Value Reference Range Interpretation Comments CHOLESTEROL (test code = 2210) 124 MG/DL TRIGLYCERIDES (test code = 2232) 69 MG/DL HDL CHOLESTEROL (test code = 2220) 39 MG/DL CALC LDL CHOL (test code = 2237) 70 MG/DL RISK RATIO LDL/HDL (test code = 1.79 RATIO 2238) COMPREHENSIVE METABOLIC [id number] 00:00:00 Test Item Value Reference Range Interpretation Comments GLUCOSE (test code = 2217) 77 MG/DL BUN (test code = 2208) 8 MG/DL CREATININE (test code = 2214) 0.67 MG/DL eGFR (2020 CKD-EPI) (test 122 ML/MIN/1.73 code = 47183) CALC BUN/CREAT (test code = 12 RATIO [...] code = 2219) 92 U/L COMPREHENSIVE METABOLIC [id number] 00:00:00 Test Item Value Reference Range Interpretation Comments GLUCOSE (test code = 2217) 77 MG/DL BUN (test code = 2208) 8 MG/DL CREATININE (test code = 2214) 0.67 MG/DL eGFR (2020 CKD-EPI) (test 122 ML/MIN/1.73 code = 96973) CALC BUN/CREAT (test code = 12 RATIO [...] code = 2219) 92 U/L CBC W/AUTO [id number] 00:00:00 Test Item Value Reference Range Interpretation [...] NUCLEATED RBCS (test code = 0.00 K/UL 27179) CBC W/AUTO [id number] 00:00:00 Test Item Value Reference Range Interpretation [...] NUCLEATED RBCS (test code = 0.00 K/UL 33739) HEMOGLOBIN [id number] 00:00:00 Test Item Value Reference Range Interpretation Comments HEMOGLOBIN A1c (test code = 32604) 6.0 % HEMOGLOBIN [id number] 00:00:00 Test Item Value Reference Range Interpretation Comments HEMOGLOBIN A1c (test code = 46646) 6.0 % HEMOGLOBIN [id number] 00:00:00 Test Item Value Reference Range Interpretation Comments HEMOGLOBIN A1c (test code = 56815) 6.0 % LIPID [id number] 00:00:00 Test Item Value Reference Range Interpretation Comments CHOLESTEROL (test code = 2210) 124 MG/DL TRIGLYCERIDES (test code = 2232) 69 MG/DL HDL CHOLESTEROL (test code = 2220) 39 MG/DL CALC LDL CHOL (test code = 2237) 70 MG/DL RISK RATIO LDL/HDL (test code = 1.79 RATIO 2238) LIPID [id number] 00:00:00 Test Item Value Reference Range Interpretation Comments CHOLESTEROL (test code = 2210) 124 MG/DL TRIGLYCERIDES (test code = 2232) 69 MG/DL HDL CHOLESTEROL (test code = 2220) 39 MG/DL CALC LDL CHOL (test code = 2237) 70 MG/DL RISK RATIO LDL/HDL (test code = 1.79 RATIO 2238) COMPREHENSIVE METABOLIC [id number] 00:00:00 Test Item Value Reference Range Interpretation Comments GLUCOSE (test code = 2217) 77 MG/DL BUN (test code = 2208) 8 MG/DL CREATININE (test code = 2214) 0.67 MG/DL eGFR (2020 CKD-EPI) (test 122 ML/MIN/1.73 code = 45409) CALC BUN/CREAT (test code = 12 RATIO [...] code = 2219) 92 U/L COMPREHENSIVE METABOLIC [id number] 00:00:00 Test Item Value Reference Range Interpretation Comments GLUCOSE (test code = 2217) 77 MG/DL BUN (test code = 2208) 8 MG/DL CREATININE (test code = 2214) 0.67 MG/DL eGFR (2020 CKD-EPI) (test 122 ML/MIN/1.73 code = 94919) CALC BUN/CREAT (test code = 12 RATIO [...] 2219) 92 U/L MR KNEE LEFT WO [id number] 21:23:01 Stable MRI with lateral patellar subluxation [...] this study and agree with the abovereport.[facility] 2020-03-16 [...] view. No fracture is appreciated.IMPRESSIONLarge effusion.No fracture.[facility] Center[facility], [id number] 00:00:00 Test Item Value Reference Range Interpretation Comments HCG, QUANTITATIVE (test code = <5 MIU/ML 2506) HCG, [id number] 00:00:00 Test Item Value Reference Range Interpretation Comments HCG, QUANTITATIVE (test code = <5 MIU/ML 2506) HCG, [id number] 00:00:00 Test Item Value Reference Range Interpretation Comments HCG, QUANTITATIVE (test code = <5 MIU/ML 2506) HCG, [id number] 00:00:00 Test Item Value Reference Range Interpretation Comments HCG, QUANTITATIVE (test code = <5 MIU/ML 2506) HCG, [id number] 00:00:00 Test Item Value Reference Range Interpretation Comments HCG, QUANTITATIVE (test code = <5 MIU/ML 2506) HCG, [id number] 00:00:00 Test Item Value Reference Range Interpretation Comments HCG, QUANTITATIVE (test code = <5 MIU/ML 2506) HCG, [id number] 00:00:00 Test Item Value Reference Range Interpretation Comments HCG, QUANTITATIVE (test code = <5 MIU/ML 2506) HCG, [id number] 00:00:00 Test Item Value Reference Range Interpretation Comments HCG, QUANTITATIVE (test code = <5 MIU/ML 2506) HCG, [id number] 00:00:00 Test Item Value Reference Range Interpretation Comments HCG, QUANTITATIVE (test code = <5 MIU/ML 2506) HCG, [id number] 00:00:00 Test Item Value Reference Range Interpretation Comments HCG, QUANTITATIVE (test TEST NOT PERFORMED code = 2506) MIU/ML HCG, [id number] 00:00:00 Test Item Value Reference Range Interpretation Comments HCG, QUANTITATIVE (test TEST NOT PERFORMED code = 2506) MIU/ML HCG, [id number] 00:00:00 Test Item Value Reference Range Interpretation Comments HCG, QUANTITATIVE (test TEST NOT PERFORMED code = 2506) MIU/ML HCG, [id number] 00:00:00 Test Item Value Reference Range Interpretation Comments HCG, QUANTITATIVE (test TEST NOT PERFORMED code = 2506) MIU/ML HCG, [id number] 00:00:00 Test Item Value Reference Range Interpretation Comments HCG, QUANTITATIVE (test TEST NOT PERFORMED code = 2506) MIU/ML HCG, [id number] 00:00:00 Test Item Value Reference Range Interpretation Comments HCG, QUANTITATIVE (test TEST NOT PERFORMED code = 2506) MIU/ML HCG, [id number] 00:00:00 Test Item Value Reference Range Interpretation Comments HCG, QUANTITATIVE (test TEST NOT PERFORMED code = 2506) MIU/ML HCG, [id number] 00:00:00 Test Item Value Reference Range Interpretation Comments HCG, QUANTITATIVE (test TEST NOT PERFORMED code = 2506) MIU/ML HCG, [id number] 00:00:00 Test Item Value Reference Range Interpretation Comments HCG, QUANTITATIVE (test TEST NOT PERFORMED code = 2506) MIU/ML CHLAMYDIA, AMPLIFIED, [id number] 00:00:00 Test Item Value Reference Range Interpretation Comments CHLAMYDIA, TMA (test code = 98063) NEGATIVE CHLAMYDIA, AMPLIFIED, [id number] 00:00:00 Test Item Value Reference Range Interpretation Comments CHLAMYDIA, TMA (test code = 78785) NEGATIVE GC, AMPLIFIED, [id number] 00:00:00 Test Item Value Reference Range Interpretation Comments GONORRHEA, TMA (test code = 67340) NEGATIVE GC, AMPLIFIED, [id number] 00:00:00 Test Item Value Reference Range Interpretation Comments GONORRHEA, TMA (test code = 55598) NEGATIVE CHLAMYDIA, AMPLIFIED, [id number] 00:00:00 Test Item Value Reference Range Interpretation Comments CHLAMYDIA, TMA (test code = 59860) NEGATIVE CHLAMYDIA, AMPLIFIED, [id number] 00:00:00 Test Item Value Reference Range Interpretation Comments CHLAMYDIA, TMA (test code = 56841) NEGATIVE GC, AMPLIFIED, [id number] 00:00:00 Test Item Value Reference Range Interpretation Comments GONORRHEA, TMA (test code = 05582) NEGATIVE GC, AMPLIFIED, [id number] 00:00:00 Test Item Value Reference Range Interpretation Comments GONORRHEA, TMA (test code = 14178) NEGATIVE CHLAMYDIA, AMPLIFIED, [id number] 00:00:00 Test Item Value Reference Range Interpretation Comments CHLAMYDIA, TMA (test code = 88912) NEGATIVE CHLAMYDIA, AMPLIFIED, [id number] 00:00:00 Test Item Value Reference Range Interpretation Comments CHLAMYDIA, TMA (test code = 26791) NEGATIVE GC, AMPLIFIED, [id number] 00:00:00 Test Item Value Reference Range Interpretation Comments GONORRHEA, TMA (test code = 57892) NEGATIVE GC, AMPLIFIED, [id number] 00:00:00 Test Item Value Reference Range Interpretation Comments GONORRHEA, TMA (test code = 51750) NEGATIVE HIV AB/AG COMBO RFLX [id number] 00:00:00 Test Item Value Reference Range Interpretation Comments HIV 1/2 4TH GEN, RFLX CONF (test NON-REACTIVE code = 3514) HIV AB/AG COMBO RFLX [id number] 00:00:00 Test Item Value Reference Range Interpretation Comments HIV 1/2 4TH GEN, RFLX CONF (test NON-REACTIVE code = 3514) ACUTE HEPATITIS [id number] 00:00:00 Test Item Value Reference Range Interpretation Comments HEPATITIS A IgM (test code = NON-REACTIVE 36715) HEPATITIS B CORE IgM (test code NON-REACTIVE = 4644) HEPATITIS B SURF AG (test code = NON-REACTIVE 2739) HEPATITIS C ANTIBODY (test code NON-REACTIVE = 4675) INTERPRETATION HEPATITIS A: (NOTE) (test code = 2552) INTERPRETATION HEPATITIS B: (NOTE) (test code = 99620) INTERPRETATION HEPATITIS C: (NOTE) (test code = 03201) ACUTE HEPATITIS [id number] 00:00:00 Test Item Value Reference Range Interpretation Comments HEPATITIS A IgM (test code = NON-REACTIVE 21441) HEPATITIS B CORE IgM (test code NON-REACTIVE = 4644) HEPATITIS B SURF AG (test code = NON-REACTIVE 2739) HEPATITIS C ANTIBODY (test code NON-REACTIVE = 4675) INTERPRETATION HEPATITIS A: (NOTE) (test code = 2552) INTERPRETATION HEPATITIS B: (NOTE) (test code = 69555) INTERPRETATION HEPATITIS C: (NOTE) (test code = 57049) [id number] 00:00:00 Test Item Value Reference Range Interpretation Comments RPR RESULT (test code = NON-REACTIVE 3501) RPR TITER (test code = 3500) NOT INDIC. TITER [id number] 00:00:00 Test Item Value Reference Range Interpretation Comments RPR RESULT (test code = NON-REACTIVE 3501) RPR TITER (test code = 3500) NOT INDIC. TITER [id number] 00:00:00 Test Item Value Reference Range Interpretation Comments RPR RESULT (test code = NON-REACTIVE 3501) RPR TITER (test code = 3500) NOT INDIC. TITER HIV AB/AG COMBO RFLX [id number] 00:00:00 Test Item Value Reference Range Interpretation Comments HIV 1/2 4TH GEN, RFLX CONF (test NON-REACTIVE code = 3514) HIV AB/AG COMBO RFLX [id number] 00:00:00 Test Item Value Reference Range Interpretation Comments HIV 1/2 4TH GEN, RFLX CONF (test NON-REACTIVE code = 3514) HIV AB/AG COMBO RFLX [id number] 00:00:00 Test Item Value Reference Range Interpretation Comments HIV 1/2 4TH GEN, RFLX CONF (test NON-REACTIVE code = 3514) ACUTE HEPATITIS [id number] 00:00:00 Test Item Value Reference Range Interpretation Comments HEPATITIS A IgM (test code = NON-REACTIVE 52682) HEPATITIS B CORE IgM (test code NON-REACTIVE = 4644) HEPATITIS B SURF AG (test code = NON-REACTIVE 2739) HEPATITIS C ANTIBODY (test code NON-REACTIVE = 4675) INTERPRETATION HEPATITIS A: (NOTE) (test code = 2552) INTERPRETATION HEPATITIS B: (NOTE) (test code = 42589) INTERPRETATION HEPATITIS C: (NOTE) (test code = 18843) ACUTE HEPATITIS [id number] 00:00:00 Test Item Value Reference Range Interpretation Comments HEPATITIS A IgM (test code = NON-REACTIVE 69805) HEPATITIS B CORE IgM (test code NON-REACTIVE = 4644) HEPATITIS B SURF AG (test code = NON-REACTIVE 2739) HEPATITIS C ANTIBODY (test code NON-REACTIVE = 4675) INTERPRETATION HEPATITIS A: (NOTE) (test code = 2552) INTERPRETATION HEPATITIS B: (NOTE) (test code = 52159) INTERPRETATION HEPATITIS C: (NOTE) (test code = 02511) [id number] 00:00:00 Test Item Value Reference Range Interpretation Comments RPR RESULT (test code = NON-REACTIVE 3501) RPR TITER (test code = 3500) NOT INDIC. TITER [id number] 00:00:00 Test Item Value Reference Range Interpretation Comments RPR RESULT (test code = NON-REACTIVE 3501) RPR TITER (test code = 3500) NOT INDIC. TITER [id number] 00:00:00 Test Item Value Reference Range Interpretation Comments RPR RESULT (test code = NON-REACTIVE 3501) RPR TITER (test code = 3500) NOT INDIC. TITER HIV AB/AG COMBO RFLX [id number] 00:00:00 Test Item Value Reference Range Interpretation Comments HIV 1/2 4TH GEN, RFLX CONF (test NON-REACTIVE code = 3514) ACUTE HEPATITIS [id number] 00:00:00 Test Item Value Reference Range Interpretation Comments HEPATITIS A IgM (test code = NON-REACTIVE 82881) HEPATITIS B CORE IgM (test code NON-REACTIVE = 4644) HEPATITIS B SURF AG (test code = NON-REACTIVE 2739) HEPATITIS C ANTIBODY (test code NON-REACTIVE = 4675) INTERPRETATION HEPATITIS A: (NOTE) (test code = 2552) INTERPRETATION HEPATITIS B: (NOTE) (test code = 53352) INTERPRETATION HEPATITIS C: (NOTE) (test code = 68023) ACUTE HEPATITIS [id number] 00:00:00 Test Item Value Reference Range Interpretation Comments HEPATITIS A IgM (test code = NON-REACTIVE 55454) HEPATITIS B CORE IgM (test code NON-REACTIVE = 4644) HEPATITIS B SURF AG (test code = NON-REACTIVE 2739) HEPATITIS C ANTIBODY (test code NON-REACTIVE = 4675) INTERPRETATION HEPATITIS A: (NOTE) (test code = 2552) INTERPRETATION HEPATITIS B: (NOTE) (test code = 56991) INTERPRETATION HEPATITIS C: (NOTE) (test code = 66124) [id number] 00:00:00 Test Item Value Reference Range Interpretation Comments RPR RESULT (test code = NON-REACTIVE 3501) RPR TITER (test code = 3500) NOT INDIC. TITER [id number] 00:00:00 Test Item Value Reference Range Interpretation Comments RPR RESULT (test code = NON-REACTIVE 3501) RPR TITER (test code = 3500) NOT INDIC. TITER [id number] 00:00:00 Test Item Value Reference Range Interpretation Comments RPR RESULT (test code = NON-REACTIVE 3501) RPR TITER (test code = 3500) NOT INDIC. TITER HIV AB/AG COMBO RFLX [id number] 00:00:00 Test Item Value Reference Range Interpretation Comments HIV 1/2 4TH GEN, RFLX CONF (test NON-REACTIVE code = 3514) HIV AB/AG COMBO RFLX [id number] 00:00:00 Test Item Value Reference Range Interpretation Comments HIV 1/2 4TH GEN, RFLX CONF (test NON-REACTIVE code = 3514) ACUTE HEPATITIS [id number] 00:00:00 Test Item Value Reference Range Interpretation Comments HEPATITIS A IgM (test code = NON-REACTIVE 82714) HEPATITIS B CORE IgM (test code NON-REACTIVE = 4644) HEPATITIS B SURF AG (test code = NON-REACTIVE 2739) HEPATITIS C ANTIBODY (test code NON-REACTIVE = 4675) HCV INDEX (test code = 37178) 0.13 INTERPRETATION HEPATITIS A: (NOTE) (test code = 2552) INTERPRETATION HEPATITIS B: (NOTE) (test code = 61592) INTERPRETATION HEPATITIS C: (NOTE) (test code = 52466) ACUTE HEPATITIS [id number] 00:00:00 Test Item Value Reference Range Interpretation Comments HEPATITIS A IgM (test code = NON-REACTIVE 07739) HEPATITIS B CORE IgM (test code NON-REACTIVE = 4644) HEPATITIS B SURF AG (test code = NON-REACTIVE 2739) HEPATITIS C ANTIBODY (test code NON-REACTIVE = 4675) HCV INDEX (test code = 26671) 0.13 INTERPRETATION HEPATITIS A: (NOTE) (test code = 2552) INTERPRETATION HEPATITIS B: (NOTE) (test code = 39816) INTERPRETATION HEPATITIS C: (NOTE) (test code = 43610) GC AND CHLAMYDIA, AMPLIFIED, [id number] 00:00:00 Test Item Value Reference Range Interpretation Comments GONORRHEA, TMA (test code = 42498) NEGATIVE CHLAMYDIA, TMA (test code = 94587) NEGATIVE GC AND CHLAMYDIA, AMPLIFIED, [id number] 00:00:00 Test Item Value Reference Range Interpretation Comments GONORRHEA, TMA (test code = 62584) NEGATIVE CHLAMYDIA, TMA (test code = 74433) NEGATIVE [id number] 00:00:00 Test Item Value Reference Range Interpretation Comments RPR RESULT (test code = NON-REACTIVE 3501) RPR TITER (test code = 3500) NOT INDIC. TITER [id number] 00:00:00 Test Item Value Reference Range Interpretation Comments RPR RESULT (test code = NON-REACTIVE 3501) RPR TITER (test code = 3500) NOT INDIC. TITER [id number] 00:00:00 Test Item Value Reference Range Interpretation Comments RPR RESULT (test code = NON-REACTIVE 3501) RPR TITER (test code = 3500) NOT INDIC. TITER HIV AB/AG COMBO RFLX [id number] 00:00:00 Test Item Value Reference Range Interpretation Comments HIV 1/2 4TH GEN, RFLX CONF (test NON-REACTIVE code = 3514) HIV AB/AG COMBO RFLX [id number] 00:00:00 Test Item Value Reference Range Interpretation Comments HIV 1/2 4TH GEN, RFLX CONF (test NON-REACTIVE code = 3514) HIV AB/AG COMBO RFLX [id number] 00:00:00 Test Item Value Reference Range Interpretation Comments HIV 1/2 4TH GEN, RFLX CONF (test NON-REACTIVE code = 3514) ACUTE HEPATITIS [id number] 00:00:00 Test Item Value Reference Range Interpretation Comments HEPATITIS A IgM (test code = NON-REACTIVE 86468) HEPATITIS B CORE IgM (test code NON-REACTIVE = 4644) HEPATITIS B SURF AG (test code = NON-REACTIVE 2739) HEPATITIS C ANTIBODY (test code NON-REACTIVE = 4675) HCV INDEX (test code = 35080) 0.13 INTERPRETATION HEPATITIS A: (NOTE) (test code = 2552) INTERPRETATION HEPATITIS B: (NOTE) (test code = 60799) INTERPRETATION HEPATITIS C: (NOTE) (test code = 79925) ACUTE HEPATITIS [id number] 00:00:00 Test Item Value Reference Range Interpretation Comments HEPATITIS A IgM (test code = NON-REACTIVE 08346) HEPATITIS B CORE IgM (test code NON-REACTIVE = 4644) HEPATITIS B SURF AG (test code = NON-REACTIVE 2739) HEPATITIS C ANTIBODY (test code NON-REACTIVE = 4675) HCV INDEX (test code = 89118) 0.13 INTERPRETATION HEPATITIS A: (NOTE) (test code = 2552) INTERPRETATION HEPATITIS B: (NOTE) (test code = 71658) INTERPRETATION HEPATITIS C: (NOTE) (test code = 42071) HIV AB/AG COMBO RFLX [id number] 00:00:00 Test Item Value Reference Range Interpretation Comments HIV 1/2 4TH GEN, RFLX CONF (test NON-REACTIVE code = 3514) GC AND CHLAMYDIA, AMPLIFIED, [id number] 00:00:00 Test Item Value Reference Range Interpretation Comments GONORRHEA, TMA (test code = 98655) NEGATIVE CHLAMYDIA, TMA (test code = 58629) NEGATIVE GC AND CHLAMYDIA, AMPLIFIED, [id number] 00:00:00 Test Item Value Reference Range Interpretation Comments GONORRHEA, TMA (test code = 90035) NEGATIVE CHLAMYDIA, TMA (test code = 05911) NEGATIVE [id number] 00:00:00 Test Item Value Reference Range Interpretation Comments RPR RESULT (test code = NON-REACTIVE 3501) RPR TITER (test code = 3500) NOT INDIC. TITER [id number] 00:00:00 Test Item Value Reference Range Interpretation Comments RPR RESULT (test code = NON-REACTIVE 3501) RPR TITER (test code = 3500) NOT INDIC. TITER [id number] 00:00:00 Test Item Value Reference Range Interpretation Comments RPR RESULT (test code = NON-REACTIVE 3501) RPR TITER (test code = 3500) NOT INDIC. TITER ACUTE HEPATITIS [id number] 00:00:00 Test Item Value Reference Range Interpretation Comments HEPATITIS A IgM (test code = NON-REACTIVE 67801) HEPATITIS B CORE IgM (test code NON-REACTIVE = 4644) HEPATITIS B SURF AG (test code = NON-REACTIVE 2739) HEPATITIS C ANTIBODY (test code NON-REACTIVE = 4675) HCV INDEX (test code = 73569) 0.13 INTERPRETATION HEPATITIS A: (NOTE) (test code = 2552) INTERPRETATION HEPATITIS B: (NOTE) (test code = 41450) INTERPRETATION HEPATITIS C: (NOTE) (test code = 99359) ACUTE HEPATITIS [id number] 00:00:00 Test Item Value Reference Range Interpretation Comments HEPATITIS A IgM (test code = NON-REACTIVE 47257) HEPATITIS B CORE IgM (test code NON-REACTIVE = 4644) HEPATITIS B SURF AG (test code = NON-REACTIVE 2739) HEPATITIS C ANTIBODY (test code NON-REACTIVE = 4675) HCV INDEX (test code = 23207) 0.13 INTERPRETATION HEPATITIS A: (NOTE) (test code = 2552) INTERPRETATION HEPATITIS B: (NOTE) (test code = 78421) INTERPRETATION HEPATITIS C: (NOTE) (test code = 07324) GC AND CHLAMYDIA, AMPLIFIED, [id number] 00:00:00 Test Item Value Reference Range Interpretation Comments GONORRHEA, TMA (test code = 00836) NEGATIVE CHLAMYDIA, TMA (test code = 42621) NEGATIVE GC AND CHLAMYDIA, AMPLIFIED, [id number] 00:00:00 Test Item Value Reference Range Interpretation Comments GONORRHEA, TMA (test code = 60719) NEGATIVE CHLAMYDIA, TMA (test code = 90824) NEGATIVE [id number] 00:00:00 Test Item Value Reference Range Interpretation Comments RPR RESULT (test code = NON-REACTIVE 3501) RPR TITER (test code = 3500) NOT INDIC. TITER [id number] 00:00:00 Test Item Value Reference Range Interpretation Comments RPR RESULT (test code = NON-REACTIVE 3501) RPR TITER (test code = 3500) NOT INDIC. TITER [id number] 00:00:00 Test Item Value Reference Range Interpretation Comments RPR RESULT (test code = NON-REACTIVE 3501) RPR TITER (test code = 3500) NOT INDIC. TITER [id number] 00:00:00 Test Item Value Reference Range Interpretation Comments RPR RESULT (test code = NON-REACTIVE 3501) RPR TITER (test code = 3500) NOT INDIC. TITER [id number] 00:00:00 Test Item Value Reference Range Interpretation Comments RPR RESULT (test code = NON-REACTIVE 3501) RPR TITER (test code = 3500) NOT INDIC. TITER [id number] 00:00:00 Test Item Value Reference Range Interpretation Comments RPR RESULT (test code = NON-REACTIVE 3501) RPR TITER (test code = 3500) NOT INDIC. TITER HIV AB/AG COMBO RFLX [id number] 00:00:00 Test Item Value Reference Range Interpretation Comments HIV 1/2 4TH GEN, RFLX CONF (test NON-REACTIVE code = 3514) HIV AB/AG COMBO RFLX [id number] 00:00:00 Test Item Value Reference Range Interpretation Comments HIV 1/2 4TH GEN, RFLX CONF (test NON-REACTIVE code = 3514) [id number] 00:00:00 Test Item Value Reference Range Interpretation Comments RPR RESULT (test code = NON-REACTIVE 3501) RPR TITER (test code = 3500) NOT INDIC. TITER [id number] 00:00:00 Test Item Value Reference Range Interpretation Comments RPR RESULT (test code = NON-REACTIVE 3501) RPR TITER (test code = 3500) NOT INDIC. TITER [id number] 00:00:00 Test Item Value Reference Range Interpretation Comments RPR RESULT (test code = NON-REACTIVE 3501) RPR TITER (test code = 3500) NOT INDIC. TITER [id number] 00:00:00 Test Item Value Reference Range Interpretation Comments RPR RESULT (test code = NON-REACTIVE 3501) RPR TITER (test code = 3500) NOT INDIC. TITER HIV AB/AG COMBO RFLX [id number] 00:00:00 Test Item Value Reference Range Interpretation Comments HIV 1/2 4TH GEN, RFLX CONF (test NON-REACTIVE code = 3514) HIV AB/AG COMBO RFLX [id number] 00:00:00 Test Item Value Reference Range Interpretation Comments HIV 1/2 4TH GEN, RFLX CONF (test NON-REACTIVE code = 3514) [id number] 00:00:00 Test Item Value Reference Range Interpretation Comments RPR RESULT (test code = NON-REACTIVE 3501) RPR TITER (test code = 3500) NOT INDIC. TITER [id number] 00:00:00 Test Item Value Reference Range Interpretation Comments RPR RESULT (test code = NON-REACTIVE 3501) RPR TITER (test code = 3500) NOT INDIC. TITER HIV AB/AG COMBO RFLX [id number] 00:00:00 Test Item Value Reference Range Interpretation Comments HIV 1/2 4TH GEN, RFLX CONF (test NON-REACTIVE code = 3514) HIV AB/AG COMBO RFLX [id number] 00:00:00 Test Item Value Reference Range Interpretation Comments HIV 1/2 4TH GEN, RFLX CONF (test NON-REACTIVE code = 3514) GC AND CHLAMYDIA, AMPLIFIED, [id number] 00:00:00 Test Item Value Reference Range Interpretation Comments GONORRHEA, TMA (test code = 92309) NEGATIVE CHLAMYDIA, TMA (test code = 21835) NEGATIVE GC AND CHLAMYDIA, AMPLIFIED, [id number] 00:00:00 Test Item Value Reference Range Interpretation Comments GONORRHEA, TMA (test code = 19336) NEGATIVE CHLAMYDIA, TMA (test code = 42831) NEGATIVE GC AND CHLAMYDIA, AMPLIFIED, [id number] 00:00:00 Test Item Value Reference Range Interpretation Comments GONORRHEA, TMA (test code = 34120) NEGATIVE CHLAMYDIA, TMA (test code = 10215) NEGATIVE GC AND CHLAMYDIA, AMPLIFIED, [id number] 00:00:00 Test Item Value Reference Range Interpretation Comments GONORRHEA, TMA (test code = 80428) NEGATIVE CHLAMYDIA, TMA (test code = 99707) NEGATIVE GC AND CHLAMYDIA, AMPLIFIED, [id number] 00:00:00 Test Item Value Reference Range Interpretation Comments GONORRHEA, TMA (test code = 89677) NEGATIVE CHLAMYDIA, TMA (test code = 74605) NEGATIVE GC AND CHLAMYDIA, AMPLIFIED, [id number] 00:00:00 Test Item Value Reference Range Interpretation Comments GONORRHEA, TMA (test code = 12151) NEGATIVE CHLAMYDIA, TMA (test code = 00259) NEGATIVE COMPREHENSIVE METABOLIC [id number] 00:00:00 Test Item Value Reference Range Interpretation Comments GLUCOSE (test code = 2217) 127 MG/DL BUN (test code = 2208) 5 MG/DL CREATININE (test code = 2214) 0.58 MG/DL eGFR AMER. (test code 148 ML/MIN/1.73 = 72268) eGFR NON- AMER. (test 128 ML/MIN/1.73 code = 86057) CALC BUN/CREAT (test code = 9 RATIO [...] code = 2219) 18 U/L COMPREHENSIVE METABOLIC [id number] 00:00:00 Test Item Value Reference Range Interpretation Comments GLUCOSE (test code = 2217) 127 MG/DL BUN (test code = 2208) 5 MG/DL CREATININE (test code = 2214) 0.58 MG/DL eGFR AMER. (test code 148 ML/MIN/1.73 = 70096) eGFR NON- AMER. (test 128 ML/MIN/1.73 code = 81389) CALC BUN/CREAT (test code = 9 RATIO [...] (test code = 2219) 18 U/L LIPID [id number] 00:00:00 Test Item Value Reference Range Interpretation Comments CHOLESTEROL (test code = 2210) 186 MG/DL TRIGLYCERIDES (test code = 2232) 106 MG/DL HDL CHOLESTEROL (test code = 2220) 54 MG/DL CALC LDL CHOL (test code = 2237) 111 MG/DL RISK RATIO LDL/HDL (test code = 2.05 RATIO 2238) LIPID [id number] 00:00:00 Test Item Value Reference Range Interpretation Comments CHOLESTEROL (test code = 2210) 186 MG/DL TRIGLYCERIDES (test code = 2232) 106 MG/DL HDL CHOLESTEROL (test code = 2220) 54 MG/DL CALC LDL CHOL (test code = 2237) 111 MG/DL RISK RATIO LDL/HDL (test code = 2.05 RATIO 2238) COMPREHENSIVE METABOLIC [id number] 00:00:00 Test Item Value Reference Range Interpretation Comments GLUCOSE (test code = 2217) 127 MG/DL BUN (test code = 2208) 5 MG/DL CREATININE (test code = 2214) 0.58 MG/DL eGFR AMER. (test code 148 ML/MIN/1.73 = 07556) eGFR NON- AMER. (test 128 ML/MIN/1.73 code = 26656) CALC BUN/CREAT (test code = 9 RATIO [...] code = 2219) 18 U/L COMPREHENSIVE METABOLIC [id number] 00:00:00 Test Item Value Reference Range Interpretation Comments GLUCOSE (test code = 2217) 127 MG/DL BUN (test code = 2208) 5 MG/DL CREATININE (test code = 2214) 0.58 MG/DL eGFR AMER. (test code 148 ML/MIN/1.73 = 94514) eGFR NON- AMER. (test 128 ML/MIN/1.73 code = 60919) CALC BUN/CREAT (test code = 9 RATIO [...] code = 2219) 18 U/L COMPREHENSIVE METABOLIC [id number] 00:00:00 Test Item Value Reference Range Interpretation Comments GLUCOSE (test code = 2217) 127 MG/DL BUN (test code = 2208) 5 MG/DL CREATININE (test code = 2214) 0.58 MG/DL eGFR AMER. (test code 148 ML/MIN/1.73 = 98560) eGFR NON- AMER. (test 128 ML/MIN/1.73 code = 20925) CALC BUN/CREAT (test code = 9 RATIO [...] (test code = 2219) 18 U/L LIPID [id number] 00:00:00 Test Item Value Reference Range Interpretation Comments CHOLESTEROL (test code = 2210) 186 MG/DL TRIGLYCERIDES (test code = 2232) 106 MG/DL HDL CHOLESTEROL (test code = 2220) 54 MG/DL CALC LDL CHOL (test code = 2237) 111 MG/DL RISK RATIO LDL/HDL (test code = 2.05 RATIO 2238) LIPID [id number] 00:00:00 Test Item Value Reference Range Interpretation Comments CHOLESTEROL (test code = 2210) 186 MG/DL TRIGLYCERIDES (test code = 2232) 106 MG/DL HDL CHOLESTEROL (test code = 2220) 54 MG/DL CALC LDL CHOL (test code = 2237) 111 MG/DL RISK RATIO LDL/HDL (test code = 2.05 RATIO 2238) COMPREHENSIVE METABOLIC [id number] 00:00:00 Test Item Value Reference Range Interpretation Comments GLUCOSE (test code = 2217) 127 MG/DL BUN (test code = 2208) 5 MG/DL CREATININE (test code = 2214) 0.58 MG/DL eGFR AMER. (test code 148 ML/MIN/1.73 = 62808) eGFR NON- AMER. (test 128 ML/MIN/1.73 code = 87692) CALC BUN/CREAT (test code = 9 RATIO [...] (test code = 2219) 18 U/L LIPID [id number] 00:00:00 Test Item Value Reference Range Interpretation Comments CHOLESTEROL (test code = 2210) 186 MG/DL TRIGLYCERIDES (test code = 2232) 106 MG/DL HDL CHOLESTEROL (test code = 2220) 54 MG/DL CALC LDL CHOL (test code = 2237) 111 MG/DL RISK RATIO LDL/HDL (test code = 2.05 RATIO 2238) LIPID [id number] 00:00:00 Test Item Value Reference Range Interpretation Comments CHOLESTEROL (test code = 2210) 186 MG/DL TRIGLYCERIDES (test code = 2232) 106 MG/DL HDL CHOLESTEROL (test code = 2220) 54 MG/DL CALC LDL CHOL (test code = 2237) 111 MG/DL RISK RATIO LDL/HDL (test code = 2.05 RATIO 2238) GC AND CHLAMYDIA, AMPLIFIED, [id number] 00:00:00 Test Item Value Reference Range Interpretation Comments GONORRHEA, TMA (test code = 11508) NEGATIVE CHLAMYDIA, TMA (test code = 10826) NEGATIVE GC AND CHLAMYDIA, AMPLIFIED, [id number] 00:00:00 Test Item Value Reference Range Interpretation Comments GONORRHEA, TMA (test code = 80346) NEGATIVE CHLAMYDIA, TMA (test code = 28365) NEGATIVE GC AND CHLAMYDIA, AMPLIFIED, [id number] 00:00:00 Test Item Value Reference Range Interpretation Comments GONORRHEA, TMA (test code = 10401) NEGATIVE CHLAMYDIA, TMA (test code = 88260) NEGATIVE GC AND CHLAMYDIA, AMPLIFIED, [id number] 00:00:00 Test Item Value Reference Range Interpretation Comments GONORRHEA, TMA (test code = 04018) NEGATIVE CHLAMYDIA, TMA (test code = 41883) NEGATIVE GC AND CHLAMYDIA, AMPLIFIED, [id number] 00:00:00 Test Item Value Reference Range Interpretation Comments GONORRHEA, TMA (test code = 09148) NEGATIVE CHLAMYDIA, TMA (test code = 09625) NEGATIVE GC AND CHLAMYDIA, AMPLIFIED, [id number] 00:00:00 Test Item Value Reference Range Interpretation Comments GONORRHEA, TMA (test code = 40564) NEGATIVE CHLAMYDIA, TMA (test code = 68749) NEGATIVE VAGINAL PATHOGENS DNA [id number] 00:00:00 Test Item Value Reference Range Interpretation Comments YOKO SPECIES (test code = 15257) POSITIVE G. VAGINALIS (test code = 92118) NEGATIVE T. VAGINALIS (test code = 58077) NEGATIVE VAGINAL PATHOGENS DNA [id number] 00:00:00 Test Item Value Reference Range Interpretation Comments YOKO SPECIES (test code = 56205) POSITIVE G. VAGINALIS (test code = 52691) NEGATIVE T. VAGINALIS (test code = 31282) NEGATIVE VAGINAL PATHOGENS DNA [id number] 00:00:00 Test Item Value Reference Range Interpretation Comments YOKO SPECIES (test code = 58876) POSITIVE G. VAGINALIS (test code = 66274) NEGATIVE T. VAGINALIS (test code = 44404) NEGATIVE VAGINAL PATHOGENS DNA [id number] 00:00:00 Test Item Value Reference Range Interpretation Comments YOKO SPECIES (test code = 09100) POSITIVE G. VAGINALIS (test code = 83294) NEGATIVE T. VAGINALIS (test code = 54419) NEGATIVE VAGINAL PATHOGENS DNA [id number] 00:00:00 Test Item Value Reference Range Interpretation Comments YOKO SPECIES (test code = 98515) POSITIVE G. VAGINALIS (test code = 23826) NEGATIVE T. VAGINALIS (test code = 84335) NEGATIVE VAGINAL PATHOGENS DNA [id number] 00:00:00 Test Item Value Reference Range Interpretation Comments YOKO SPECIES (test code = 26260) POSITIVE G. VAGINALIS (test code = 26414) NEGATIVE T. VAGINALIS (test code = 05032) NEGATIVE GC AND CHLAMYDIA, AMPLIFIED, [id number] 00:00:00 Test Item Value Reference Range Interpretation Comments GONORRHEA, TMA (test code = 54338) NEGATIVE CHLAMYDIA, TMA (test code = 40478) NEGATIVE GC AND CHLAMYDIA, AMPLIFIED, [id number] 00:00:00 Test Item Value Reference Range Interpretation Comments GONORRHEA, TMA (test code = 58534) NEGATIVE CHLAMYDIA, TMA (test code = 34524) NEGATIVE GC AND CHLAMYDIA, AMPLIFIED, [id number] 00:00:00 Test Item Value Reference Range Interpretation Comments GONORRHEA, TMA (test code = 70709) NEGATIVE CHLAMYDIA, TMA (test code = 73257) NEGATIVE GC AND CHLAMYDIA, AMPLIFIED, [id number] 00:00:00 Test Item Value Reference Range Interpretation Comments GONORRHEA, TMA (test code = 44124) NEGATIVE CHLAMYDIA, TMA (test code = 56234) NEGATIVE GC AND CHLAMYDIA, AMPLIFIED, [id number] 00:00:00 Test Item Value Reference Range Interpretation Comments GONORRHEA, TMA (test code = 01488) NEGATIVE CHLAMYDIA, TMA (test code = 37073) NEGATIVE GC AND CHLAMYDIA, AMPLIFIED, [id number] 00:00:00 Test Item Value Reference Range Interpretation Comments GONORRHEA, TMA (test code = 57198) NEGATIVE CHLAMYDIA, TMA (test code = 37683) NEGATIVE CULTURE, [id number] 00:00:00 Test Item Value Reference Range Interpretation Comments CULTURE, URINE (test SPECIMEN NUMBER: code = 34475) [id number] CULTURE, [id number] 00:00:00 Test Item Value Reference Range Interpretation Comments CULTURE, URINE (test SPECIMEN NUMBER: code = 07141) [id number] CULTURE, [id number] 00:00:00 Test Item Value Reference Range Interpretation Comments CULTURE, URINE (test SPECIMEN NUMBER: code = 90691) [id number] CULTURE, [id number] 00:00:00 Test Item Value Reference Range Interpretation Comments CULTURE, URINE (test SPECIMEN NUMBER: code = 59808) [id number] CULTURE, [id number] 00:00:00 Test Item Value Reference Range Interpretation Comments CULTURE, URINE (test SPECIMEN NUMBER: code = 43699) [id number] CULTURE, [id number] 00:00:00 Test Item Value Reference Range Interpretation Comments CULTURE, URINE (test SPECIMEN NUMBER: code = 03381) [id number] HEMOGLOBIN [id number] 00:00:00 Test Item Value Reference Range Interpretation Comments HEMOGLOBIN A1c (test code = 99379) 5.5 % HEMOGLOBIN [id number] 00:00:00 Test Item Value Reference Range Interpretation Comments HEMOGLOBIN A1c (test code = 97488) 5.5 % HEMOGLOBIN [id number] 00:00:00 Test Item Value Reference Range Interpretation Comments HEMOGLOBIN A1c (test code = 09590) 5.5 % CBC W/AUTO [id number] 00:00:00 Test Item Value Reference Range Interpretation [...] code = 1015) 310 K/UL CBC W/AUTO [id number] 00:00:00 Test Item Value Reference Range Interpretation [...] code = 1015) 310 K/UL CBC W/AUTO [id number] 00:00:00 Test Item Value Reference Range Interpretation [...] code = 1015) 310 K/UL COMPREHENSIVE METABOLIC [id number] 00:00:00 Test Item Value Reference Range Interpretation Comments GLUCOSE (test code = 2217) 73 MG/DL BUN (test code = 2208) 10 MG/DL CREATININE (test code = 2214) 0.51 MG/DL eGFR AMER. (test code 158 ML/MIN/1.73 = 47087) eGFR NON- AMER. (test 136 ML/MIN/1.73 code = 40543) CALCULATED BUN/CREAT (test 20 RATIO code = [...] code = 2219) 23 U/L COMPREHENSIVE METABOLIC [id number] 00:00:00 Test Item Value Reference Range Interpretation Comments GLUCOSE (test code = 2217) 73 MG/DL BUN (test code = 2208) 10 MG/DL CREATININE (test code = 2214) 0.51 MG/DL eGFR AMER. (test code 158 ML/MIN/1.73 = 88748) eGFR NON- AMER. (test 136 ML/MIN/1.73 code = 34279) CALCULATED BUN/CREAT (test 20 RATIO code = [...] (test code = 2219) 23 U/L LIPID [id number] 00:00:00 Test Item Value Reference Range Interpretation Comments CHOLESTEROL (test code = 2210) 167 MG/DL TRIGLYCERIDES (test code = 2232) 109 MG/DL HDL CHOLESTEROL (test code = 2220) 58 MG/DL CALCULATED LDL CHOL (test code = 87 MG/DL 2236) RISK RATIO LDL/HDL (test code = 1.50 RATIO 2238) LIPID [id number] 00:00:00 Test Item Value Reference Range Interpretation [...] (test code = 2821) 1.5 UIU/ML HEMOGLOBIN [id number] 00:00:00 Test Item Value Reference Range Interpretation Comments HEMOGLOBIN A1c (test code = 98086) 5.5 % HEMOGLOBIN [id number] 00:00:00 Test Item Value Reference Range Interpretation Comments HEMOGLOBIN A1c (test code = 69832) 5.5 % HEMOGLOBIN [id number] 00:00:00 Test Item Value Reference Range Interpretation Comments HEMOGLOBIN A1c (test code = 88061) 5.5 % HEMOGLOBIN [id number] 00:00:00 Test Item Value Reference Range Interpretation Comments HEMOGLOBIN A1c (test code = 04450) 5.5 % HEMOGLOBIN [id number] 00:00:00 Test Item Value Reference Range Interpretation Comments HEMOGLOBIN A1c (test code = 28952) 5.5 % CBC W/AUTO [id number] 00:00:00 Test Item Value Reference Range Interpretation [...] code = 1015) 310 K/UL CBC W/AUTO [id number] 00:00:00 Test Item Value Reference Range Interpretation [...] code = 1015) 310 K/UL CBC W/AUTO [id number] 00:00:00 Test Item Value Reference Range Interpretation [...] code = 1015) 310 K/UL COMPREHENSIVE METABOLIC [id number] 00:00:00 Test Item Value Reference Range Interpretation Comments GLUCOSE (test code = 2217) 73 MG/DL BUN (test code = 2208) 10 MG/DL CREATININE (test code = 2214) 0.51 MG/DL eGFR AMER. (test code 158 ML/MIN/1.73 = 52803) eGFR NON- AMER. (test 136 ML/MIN/1.73 code = 76496) CALCULATED BUN/CREAT (test 20 RATIO code = [...] code = 2219) 23 U/L COMPREHENSIVE METABOLIC [id number] 00:00:00 Test Item Value Reference Range Interpretation Comments GLUCOSE (test code = 2217) 73 MG/DL BUN (test code = 2208) 10 MG/DL CREATININE (test code = 2214) 0.51 MG/DL eGFR AMER. (test code 158 ML/MIN/1.73 = 96985) eGFR NON- AMER. (test 136 ML/MIN/1.73 code = 84479) CALCULATED BUN/CREAT (test 20 RATIO code = [...] (test code = 2219) 23 U/L LIPID [id number] 00:00:00 Test Item Value Reference Range Interpretation Comments CHOLESTEROL (test code = 2210) 167 MG/DL TRIGLYCERIDES (test code = 2232) 109 MG/DL HDL CHOLESTEROL (test code = 2220) 58 MG/DL CALCULATED LDL CHOL (test code = 87 MG/DL 2237) RISK RATIO LDL/HDL (test code = 1.50 RATIO 2238) LIPID [id number] 00:00:00 Test Item Value Reference Range Interpretation [...] (test code = 2821) 1.5 UIU/ML HEMOGLOBIN [id number] 00:00:00 Test Item Value Reference Range Interpretation Comments HEMOGLOBIN A1c (test code = 69228) 5.5 % CBC W/AUTO [id number] 00:00:00 Test Item Value Reference Range Interpretation [...] code = 1015) 310 K/UL CBC W/AUTO [id number] 00:00:00 Test Item Value Reference Range Interpretation [...] code = 1015) 310 K/UL CBC W/AUTO [id number] 00:00:00 Test Item Value Reference Range Interpretation [...] code = 1015) 310 K/UL COMPREHENSIVE METABOLIC [id number] 00:00:00 Test Item Value Reference Range Interpretation Comments GLUCOSE (test code = 2217) 73 MG/DL BUN (test code = 2208) 10 MG/DL CREATININE (test code = 2214) 0.51 MG/DL eGFR AMER. (test code 158 ML/MIN/1.73 = 38630) eGFR NON- AMER. (test 136 ML/MIN/1.73 code = 25544) CALCULATED BUN/CREAT (test 20 RATIO code = [...] code = 2219) 23 U/L COMPREHENSIVE METABOLIC [id number] 00:00:00 Test Item Value Reference Range Interpretation Comments GLUCOSE (test code = 2217) 73 MG/DL BUN (test code = 2208) 10 MG/DL CREATININE (test code = 2214) 0.51 MG/DL eGFR AMER. (test code 158 ML/MIN/1.73 = 10646) eGFR NON- AMER. (test 136 ML/MIN/1.73 code = 02857) CALCULATED BUN/CREAT (test 20 RATIO code = [...] (test code = 2219) 23 U/L LIPID [id number] 00:00:00 Test Item Value Reference Range Interpretation Comments CHOLESTEROL (test code = 2210) 167 MG/DL TRIGLYCERIDES (test code = 2232) 109 MG/DL HDL CHOLESTEROL (test code = 2220) 58 MG/DL CALCULATED LDL CHOL (test code = 87 MG/DL 2237) RISK RATIO LDL/HDL (test code = 1.50 RATIO 2238) LIPID [id number] 00:00:00 Test Item Value Reference Range Interpretation [...] Notes Date/Time Note Provider Source 2023-03-11 10:20:10 [id number]:20:10Formatting of this Wade note is different from the Clini [facility] original.Images from the original note were not included.[facility] Management ClinicAhmed MD Anselmo, Sissy Spencer PA-C, MPASASSESSMENT 1. Chronic pain [...] injection is deemed warranted Pt lives near [facility] and witnessed per Brian Spencer PA-C Patient [...] tissue masses are present.KNEE ROUTINE 10-39 YEARS CGULKSFIL10/10/2023 10:40 AMResult Narrative: Examination: KNEE ROUTINE 10-39 [...] benzodiazapines, antidepressants, sedatives, and/or tranquilizers, the drug enamel sprayer, recommends not operating ANY machinery or ANY [...] medications which may lead to sudden . [id number] and physical [id number]:04:53History and physical [id number] for patient [facility] [facility].[id number] [id number]"
--- NOTE | 2023-07-19 15:57 | RAD REPORT ---
EXAM DESCRIPTION: RAD - Chest Single View - 07/19/2023 3:46 pm CLINICAL HISTORY: COUGH Chest pain. COMPARISON: <Comparisons> FINDINGS: Portable technique limits examination quality. The lungs are mildly underinflated but grossly clear. The heart is normal in size. No displaced fract ures. IMPRESSION: No acute intrathoracic process suspected.
[2023-07-19 16:31] LABS: Absolute Lymphocytes (CBC) 1.9 K/uL (0.7-4.9); Hematocrit 40.4 % (36.0-45.0); Lymphocytes % 25.9 % (15.3-44.8); MCV 85.3 fL (80-100); MPV 8.9 fL (7.6-11.3); Platelets 273 thou/uL (152-406); RBC Red Blood Cell Count 4.73 M/uL (3.86-4.86)
[2023-07-19 16:32] LABS: Protime INR 1.16
[2023-07-19 16:36] LABS: ALT/SGPT 19 U/L (13-56); AST/SGOT 12 U/L (15-37); Albumin 3.7 g/dL (3.4-5.0); Alkaline Phosphatase 68 U/L (45-117); BUN Blood Urea Nitrogen 8 mg/dL (7-18); Bicarbonate 18 mEq/L (21-32); Bilirubin Direct 0.1 mg/dL (0-0.2); Bilirubin Indirect, Calculated 0.2 mg/dL (0.2-0.8); Bilirubin Total 0.3 mg/dL (0.2-1.0); Glomerular Filtration Rate 121 ml/min (=/>90); Glucose Level 101 mg/dL (74-106); Magnesium 1.9 mg/dL (1.6-2.4); Potassium 3.1 mEq/L (3.5-5.1); Protein, Total 8.6 g/dL (6.4-8.2); Sodium Level 136 mEq/L (136-145)
[2023-07-19 16:44] LABS: Troponin High Sensitivity < 3.0 pg/mL (<58.9)
[2023-07-19] MEDS ORDERED: LEVETIRACETAM 500 MG/5 ML VIAL IV ONE (17:01)
[2023-07-19] MEDS ORDERED: NA CHLORIDE 0.9% 100 ML ONE (17:01)
--- NOTE | 2023-07-19 17:01 | RAD REPORT ---
EXAM DESCRIPTION: CT - Head Brain Wo Cont - 07/19/2023 4:55 pm CLINICAL HISTORY: SEIZURE Headache, drowsiness, seizure COMPARISON: Head Brain Wo Cont dated 06/27/2023; Head Brain Wo Cont dated 12/25/2022; Head C Spine C ap W Con dated 05/01/2023; Head C Spine Mpr Wo Con dated 01/09/2023 TECHNIQUE: All CT scans are performed using dose optimization technique as appropriate and may inclu de automated exposure control or mA/KV adjustment according to patient size. FINDINGS: No intracranial hemorrhage, hydrocephalus or extra-axial fluid collection.No areas of brai n edema or evidence of midline shift. The paranasal sinuses and mastoids are clear. The calvarium is intact. IMPRESSION: No acute intracranial abnormality.
[2023-07-19 17:08] LABS: SARS-CoV-2 Antigen Rapid Res Negative (Negative)
--- NOTE | 2023-07-19 17:36 | ER ---
Nurse's Notes [facility] Name: Taylor Rodriguez Age: 28 yrs Sex: Female : 1995 Arrival Date: 07/19/2023 Time: 15:28 Bed 5 Private MD: Diagnosis: Other seizures;Migraine with aura Presentation: 07/19 15:36 Chief complaint: patients sibling reports the patient started having seizure-like ap3 activity at 1510 today. patient's brother states he had given the patient her anxiety medications and her inhaler. Coronavirus screen: At this time, the client does not indicate any symptoms associated with coronavirus-19. Ebola Screen: No symptoms or risks identified at this time. Initial Sepsis Screen: Does the patient meet any 2 criteria? No. Patient's initial sepsis screen is negative. Does the patient have a suspected source of infection? No. Patient's initial sepsis screen is negative. Risk Assessment: Do you want to hurt yourself or someone else? Patient reports no desire to harm self or others. Onset of symptoms was July 19, 2023 at 15:10. 15:36 Method Of Arrival: Wheelchair ap3 15:36 Acuity: MILAN 3 ap3 Triage Assessment: 15:38 General: Appears obese, Behavior is anxious, restless. Neuro: Level of Consciousness is ap3 awake. Cardiovascular: Patient's skin is warm and dry. Respiratory: Airway is patent Respiratory effort is even, unlabored, Respiratory pattern is tachypnea. 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 - Social history:: Smoking status: unknown. Screenin:12 [facility] ED Fall Risk Assessment (Adult) Score/Fall Risk Level 0 - 2 = Low Risk. Abuse iw screen: Denies threats or abuse. Denies injuries from another. Nutritional screening: No deficits noted. Tuberculosis screening: No symptoms or risk factors identified. Assessment: 15:41 Neuro: Level of Consciousness is awake, alert, obeys commands, Oriented to person, ap3 place, time. 16:11 General: Appears in no apparent distress. Behavior is calm, cooperative. Pain: iw Complains of pain in right arm, left arm, right leg and left leg. Neuro: Level of Consciousness is awake, alert, obeys commands, Oriented to person, place, time, situation, Moves all extremities. Full function. Neuro: Seizure activity reported prior to arrival. Cardiovascular: Patient's skin is warm and dry. Respiratory: Respiratory effort is even, unlabored, Respiratory pattern is regular, symmetrical. GI: Abdomen is non-distended, obese. Derm: Skin is intact, is healthy with good turgor. Musculoskeletal: Range of motion: intact in all extremities. 17:15 Reassessment: Patient appears in no apparent distress at this time. Patient and/or iw family updated on plan of care and expected duration. Pain level reassessed. Patient is alert, oriented x 3, equal unlabored respirations, skin warm/dry/pink. Vital Signs: 15:36 BP 156 / 99; Pulse 89; Resp 33; Pulse Ox 97% on R/A; Weight 133.81 kg; ap3 16:12 Pulse 84; Resp 16; Pulse Ox 96% on R/A; iw ED Course: 15:30 Patient arrived in ED. sb4 15:30 Luh Rodriguez PA-C is PHCP. sb4 15:30 Last Barrientos MD is Attending Physician. sb4 15:37 Triage completed. ap3 15:39 Yumiko Ellis, RN is Primary Nurse. iw 15:39 Arm band placed on right wrist. ap3 15:39 Patient has correct armband on for positive identification. Call light in reach. Side ap3 rails up X2. Adult w/ patient. quality assurance monitor chassis on. Pulse ox on. NIBP on. 15:42 Seizure precautions initiated. ap3 15:48 Chest Single View XRAY In Process Unspecified. EDMS 16:10 Inserted saline lock: 22 gauge in right antecubital area, using aseptic technique. ds4 Blood collected. 16:10 Flu Sent. ds4 16:10 SARS RAPID Sent. ds4 16:56 CT Head Brain wo Cont In Process Unspecified. EDMS 17:58 Provided Education on: . iw 17:58 No provider procedures requiring assistance completed. IV discontinued, intact, iw bleeding controlled, No redness/swelling at site. Pressure dressing applied. Administered Medications: 17:10 Drug: Keppra IV 1000 mg IV at calculated rate once Route: IV; Rate: calculated rate; iw Site: right antecubital; 17:40 Follow up: IV Status: Completed infusion iw 07/20 07:17 Not Given (Patient Refused): potassiumeffervescent tablet 50 meq PO once; dissolve in 4 iw ounces of water or juice Medication: 07/19 15:39 VIS not applicable for this client. ap3 Outcome: 17:35 Discharge ordered by . sb4 17:58 Discharged to home ambulatory, iw 17:58 Condition: good 17:58 Discharge instructions given to patient, Instructed on discharge instructions, follow up and referral plans. Demonstrated understanding of instructions, follow-up care, 17:59 Patient left the ED. iw Signatures: Dispatcher [employer] Yumiko Quinonez, RN ROQUE iw Inocente Ba ds4 Lynda Esquivel RN RN ap3 Luh Rodriguez, PAAlmaC PA-C sb4
--- NOTE | 2023-07-19 17:36 | EDPHYS ---
Physician Documentation [facility] Name: Taylor Rodriguez Age: 28 yrs Sex: Female : 1995 Arrival Date: 07/19/2023 Time: 15:28 Bed 5 Private MD: ED Physician Last Barrientos HPI: 07/19 15:47 This 28 yrs old Black Female presents to ER via Wheelchair with complaints of Seizure. 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 sb4 no seizure activity noted by emergency staff. brother states he administered her anxiolytics prior to coming. she is not post ictal during my assessment. she reports compliance with her medications. 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 - Social history:: Smoking status: unknown. ROS: 07/20 01:30 Constitutional: Negative for fever, chills, and weight loss, sb4 Neuro: Positive for seizure activity, All other systems are negative, Exam: 01:32 Head/Face: Normocephalic, atraumatic. Eyes: Extra-ocular motions intact. Periorbital sb4 areas with no swelling, redness, or edema. ENT: Mucous membranes moist. Cardiovascular: Regular rate and rhythm with a normal S1 and S2. Respiratory: Lungs have equal breath sounds bilaterally, clear to auscultation and percussion. No rales, rhonchi or wheezes noted. No increased work of breathing, no retractions or nasal flaring. Abdomen/GI: Soft, non-tender, no distension. Skin: Warm, dry with normal turgor. Normal color with no rashes, no lesions, and no evidence of cellulitis. MS/ Extremity: Pulses equal, no cyanosis. Neurovascular intact. Full, normal range of motion. Neuro: Awake and alert, GCS 15, oriented to person, place, time, and situation. Motor strength 5/5 in all extremities. Sensory grossly intact. 01:32 Constitutional: The patient appears in no acute distress, alert, awake, obese, Vital Signs: 07/19 15:36 BP 156 / 99; Pulse 89; Resp 33; Pulse Ox 97% on R/A; Weight 133.81 kg; ap3 16:12 Pulse 84; Resp 16; Pulse Ox 96% on R/A; iw MDM: 15:30 Patient medically screened. 4 07/20 01:32 Differential diagnosis: seizure, pseudoseizure, complex migraine. Data reviewed: vital sb4 signs, nurses notes, lab test result(s), EKG, radiologic studies, and as a result, I will discharge patient. Care significantly affected by the following chronic conditions: Hypertension, Obesity. Counseling: I had a detailed discussion with the patient and/or guardian regarding the historical points, exam findings, and any diagnostic results supporting the discharge/admit diagnosis, the presence of at least one elevated blood pressure reading (>120/80) during this emergency department visit, lab results, radiology results, the need for outpatient follow up, a neurosurgeon, a psychiatrist, to return to the emergency department if symptoms worsen or persist or if there are any questions or concerns that arise at home. 07/19 15:35 Order name: Basic Metabolic Panel; Complete Time: 16:50 sb4 07/19 15:35 Order name: CBC with Diff; Complete Time: 16:33 sb4 07/19 15:35 Order name: Hepatic Function; Complete Time: 16:50 sb4 07/19 15:35 Order name: Magnesium; Complete Time: 16:50 sb4 07/19 15:35 Order name: Protime (+inr); Complete Time: 16:33 sb4 07/19 15:35 Order name: Ptt, Activated; Complete Time: 16:33 sb4 07/19 15:35 Order name: Troponin High Sensitivity; Complete Time: 16:50 sb4 07/19 15:35 Order name: SARS RAPID; Complete Time: 17:08 sb4 07/19 15:35 Order name: Flu; Complete Time: 17:08 sb4 07/19 15:35 Order name: CT Head Brain wo Cont; Complete Time: 17:06 sb4 07/19 15:35 Order name: Chest Single View XRAY; Complete Time: 15:58 sb4 07/19 15:35 Order name: EKG; Complete Time: 15:36 sb4 07/19 15:35 Order name: Cardiac monitoring; Complete Time: 16:10 sb4 07/19 15:35 Order name: EKG - Nurse/Tech; Complete Time: 16:10 sb4 07/19 15:35 Order name: IV Saline Lock; Complete Time: 16:10 sb4 07/19 15:35 Order name: Labs collected and sent; Complete Time: 16:10 sb4 07/19 15:35 Order name: NPO; Complete Time: 16:11 sb4 07/19 15:35 Order name: O2 Per Protocol; Complete Time: 16:10 sb4 07/19 15:35 Order name: O2 Sat Monitoring; Complete Time: 16:10 sb4 EC/19 15:57 Rate is 88 beats/min. Rhythm is regular, Normal Sinus Rhythm. [place] interval is normal at sb4 162 msec. QRS interval is normal at 84 msec. QT interval is normal at 433 msec. No Q waves. T waves are Normal. No ST changes noted. Clinical impression: Normal ECG. Interpreted by me. Reviewed by me. Administered Medications: 17:10 Drug: Keppra IV 1000 mg IV at calculated rate once Route: IV; Rate: calculated rate; iw Site: right antecubital; 17:40 Follow up: IV Status: Completed infusion iw 07/20 07:17 Not Given (Patient Refused): potassiumeffervescent tablet 50 meq PO once; dissolve in 4 iw ounces of water or juice Disposition Summary: 07/19/23 17:35 Discharge Ordered Notes: Location: Home sb4 Problem: new sb4 Symptoms: have improved sb4 Condition: Stable sb4 Diagnosis - Other seizures sb4 - Migraine with aura sb4 Followup: sb4 - With: Emergency Department - When: As needed - Reason: Trouble breathing, Worsening of condition Discharge Instructions: - Discharge Summary Sheet sb4 - Epilepsy sb4 - Seizure, Adult sb4 - Migraine Headache, [id number] sb4 Forms: - Medication Reconciliation Form sb4 - Thank You Letter sb4 - Antibiotic Education sb4 - Prescription Opioid Use sb4 - Patient Portal Instructions sb4 - Leadership Thank You Letter sb4 Signatures: Dispatcher [employer] Yumiko Quinonez RN RN iw Prokisch, Amanda, RN RN ap3 Brown, Sophia, PAMilana PAMilana sb4 Corrections: (The following items were deleted from the chart) 01:32 01:30 Constitutional: This is a well developed, well nourished patient who is awake, sb4 alert, and in no acute distress. Head/Face: Normocephalic, atraumatic. Eyes: Extra-ocular motions intact. Periorbital areas with no swelling, redness, or edema. sb4
[2023-07-19 18:35] VITALS: BP 156/99
[2023-07-19 18:38] VITALS: O2SAT 96
--- NOTE | 2023-07-22 17:00 | EKG ---
Test Date: 2023-07-19 Test Time: 15:53:14 Chick Sexer: HILARIO MEASUREMENT RESULTS: Intervals: Rate: 88 CT: 162 QRSD: 84 QT: 358 QTc: 433 [place]: P: 16 CT: 162 QRS: 1 T: -8 INTERPRETIVE STATEMENTS: Normal sinus rhythm Normal ECG Compared to ECG 07/14/2023 17:44:37 No significant changes Electronically Signed On 07-22-23 16:53:37 COSTUME MAKER by Parmjit Yepez
== END 2023-07-19 17:59 | disposition home or self-care (01) ==
LOC: ER 15:28
DX: R56.9 Unspecified convulsions (principal); G43.109 Migraine with aura, not intractable, without status migrainosus; Z20.822 Contact with and (suspected) exposure to COVID-19; Z11.52 Encounter for screening for COVID-19; Z88.8 Allergy status to other drugs, medicaments and biological substances
CPT/HCPCS: 96365; 93005; 85025; 80048; 36415; 83735; 85610; 80076; 85730; 84484; 87804 ×2; 70450; 71045; 99285; 87811; J1953

== ENCOUNTER 2023-08-03 15:50 | Emergency (ER) | payer OTHER ==
--- OUTSIDE RECORDS SUMMARY | 2023-08-03 16:07 | XMS REPORT | Continuity of Care Document ---
:1995 Author Organization [facility] t Address [address] [place] [address] Care Team Providers Name Role Phone No, Pcp [facility] Primary Care Physician Unavailable DARLIN VICK Attending Clinician Unavailable TREVOR ESCAMILLA Attending Clinician Unavailable LEI KIMBALL Attending Clinician Unavailable TERRENCE RAMON Attending Clinician Unavailable DORA WINN Attending Clinician Unavailable ROBYN GARY Attending Clinician Unavailable SHIRLEY BADILLO Attending Clinician Unavailable SANDRA WISDOM Attending Clinician Unavailable [id number] Attending Clinician Unavailable BYRON MALHOTRA Attending Clinician Unavailable MD ARAVIND Attending Clinician Unavailable KANDI GROSS Attending Clinician Unavailable [id number] Attending Clinician Unavailable JUVENCIO ORNELAS Attending Clinician Unavailable SYLVESTER HUTCHINSON Attending Clinician Unavailable Sylvester Quijano Attending Clinician CARLIE BRIONES Attending Clinician Unavailable [id number] Attending Clinician Unavailable JONN SCHMIDT Attending Clinician Unavailable LUKE ANGELO Attending Clinician Unavailable GAURAV PURVIS Attending Clinician Unavailable ANGELICA NEVAREZ Attending Clinician Unavailable PENAFRACHEL WALL Attending Clinician Unavailable [place] POWER SHOVEL OPERATOR, Rachel Munoz Attending Clinician [phone] [employer] [place] Attending Clinician Unavailable KELSEY [...] SHEY BIANCHI Attending Clinician Unavailable Doctor Unassigned, [place] Attending Clinician Unavailable Shey Bianchi MD Attending [...] Date S dameon AETNA MP CVS 9 [id number] 2022 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-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 00:00: Medical Branch Pain Pain Disease Active 2016-08 Univers 0-12 ity of 00:00: Medical Branch 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 0-12 it y of 00:00: [...] Active Univers ALLERGIE Class ity of S [facility] Social History Social Habit Start Date Stop Date Quantity Comments Source Gender identity 2022-09-04 Identifies as Jelenalit Ibrahim - 10:33:35 male gender External (finding) History of tobacco Cigarette Smoker Jelena Ibrahim - use External History SDOH Jelena nolasco - Alcohol Frequency Externa l History SDOH Jelena nolasco - Alcohol Std 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 SDOH Jelena nolasco - Alcohol Binge External Exposure to Not sure University of SARS-CoV-2 (event) [facility] Sexual orientation [facility] Alcohol intake 2023-07-27 2023-07-27 Current drinker Beth Ibrahim - 00:00:00 00:00:00 of alcohol External (finding) Tobacco use and 2022-12-22 2022-12-22 Smokeless tobacco Ke emirey Seybold - exposure 00:00:00 00:00:00 non-user External Alcohol Comment 2022-09-09 2022-09-09 rare Jelena allenold - 00:00:00 00:00:00 External History of Social 2020-08-02 2020-08-02 Univers ity of function 00:00:00 00:00:00 [facility] Tobacco Comment 2019-08-16 2019-08-16 Quit Universit y of 00:00:00 00:00:00 smoking/vaping [facility] this year Branch Sex Assigned At [birth year] FELY Lee 00:00:00 00:00:00 [facility] Smoking Status Start Date Stop Date Source Occasional tobacco 2022-12-22 00:00:00 Jelena Guevara ybold - smoker External Never smoked tobacco Jelena Guevaratiffany old - External Ex-smoker 2019-10-25 00:00:00 2019-10-25 [facility] [place] 00:00:00 [facility] Medications Ordered Filled Start Stop Current Ordering Indication Dosage Frequency Signature Comments Components Source Medication Medication Date Date Medication? Clinician (SIG) Name Name Cyanocobala 2022-08 Yes Take by Reynold sey min - mouth. Seybold (VITAMIN B 11:07: - 12 OR) 52 Externa l Dicyclomine 2022-08 Yes 20mg Take 1 Ashlie ey HCl 20 MG 1-27 tablet (20 Seyb old oral Tablet 11:07: mg total) - 52 by mouth Externa every 6 l (six) hours. Trazodone 2022-08 Yes every 24 Ashlie ey HCl 100 MG 1-27 hours Seybold oral Tablet 11:07: - 52 Externa l Amlodipine 2022-08 Yes 5mg Take 1 Kelse y Besylate -27 tablet (5 Seybol d (NORVASC) 5 11:07: mg total) - MG oral 52 by mouth Externa Tablet daily. l Cyanocobala 2022-08 Yes Take by Reynold sey min 1-24 mouth. Seybold (VITAMIN B 08:02: - 12 OR) 20 Externa l Dicyclomine 2023-1 Yes 20mg Take 1 Ashlie ey HCl 20 MG 1-24 tablet (20 Seyb old oral Tablet 08:02: mg total) - 20 by mouth Externa every 6 l (six) hours. Trazodone 2022-08 Yes every 24 Ashlie ey HCl 100 MG 1-24 hours Seybold oral Tablet 08:02: - 20 Externa l Amlodipine 2022-08 Yes 5mg Take 1 Kelse y Besylate 1-24 tablet (5 Seybol d (NORVASC) 5 08:02: mg total) - MG oral 20 by mouth Externa Tablet daily. l Clonazepam 2022-08 Yes [id number] One TID Jelena 0.5 MG oral 1-24 PRN do not Se ybold Tablet 00:00: combine - 00 with Externa barbirtura l rene, narcotics, other benzodiaze pines and do not drive. Topiramate 2022-08 Yes [id number] 3 BID. K elsey 50 MG oral 1-24 Seybold Tablet 00:00: - 00 Externa l Clonazepam 2022-08 Yes [id number] One TID Jelena 0.5 MG oral 1-24 PRN do not Se ybold Tablet 00:00: combine - 00 with Externa barbirtura l rene, narcotics, other benzodiaze pines and do not drive. Topiramate 2022-08 Yes [id number] 3 BID. K elsey 50 MG oral 1-24 Seybold Tablet 00:00: - 00 Externa l Amlodipine 2022-08 Yes 5mg Take 1 Kelse y Besylate -01 tablet (5 Seybol d (NORVASC) 5 11:21: mg total) - MG oral 13 by mouth Externa Tablet daily. l Cyanocobala 2022-08 Yes Take by Reynold sey min 1-01 mouth. Seybold (VITAMIN B 11:19: - 12 [...] actaminoph en containing compounds, do not drive. Losartan 2022-08 Yes [id number] 100mg Take 1 Ke lsey Potassium 1-01 tablet Seybold (COZAAR) 00:00: (100 mg - 100 MG oral 00 total) by Ext jonathan Tablet mouth l daily. ACETAMINOPH 2022-08 Yes one Q 6 Reynold sey EN-BUTALBIT 1-01 hours PRN Sey bold AL 50-325 00:00: pain, do - MG oral 00 not Externa Tablet combine l with narcotics, benzodiaze pines, or actaminoph en containing compounds, do not drive. Losartan 2022-08 Yes [id number] 100mg Take 1 Ke lsey Potassium -01 tablet Seybold (COZAAR) 00:00: (100 mg - 100 MG oral 00 total) by Ext jonathan Tablet mouth l daily. ACETAMINOPH 2022-08 Yes one Q 6 Reynold sey EN-BUTALBIT 1-01 hours PRN Sey bold AL 50-325 00:00: pain, do - MG oral 00 not Externa Tablet combine l with narcotics, benzodiaze pines, or actaminoph en containing compounds, do not drive. Topiramate 2022-08- No 2 BID. Ashlie ey 50 MG oral 08-31 11-24 Seybold Tablet 00:00: 00:00 - 00 :00 Externa l Meclizine 2022-08 Yes [id number] 25mg Q.[id number] Take 1 Jelena HCl 25 MG 0-31 [id number] tablet (25 Seybold oral Tablet 00:00: 3D mg total) - 00 by mouth 3 Externa times l daily as needed. hydroCHLORO 2022-08 Yes [id number] 25mg Take 2 Jelena thiazide 0-31 capsules Seybold 12.5 MG 00:00: (25 mg - oral 00 total) by Externa Capsule mouth l daily. Potassium 2022-08 Yes [id number] 1{tbl} Take 1 Jelena Chloride ER 0-31 tablet by Sey bold 20 MEQ oral 00:00: mouth 2 - Tab CR 00 times Externa daily. l Meclizine 2022-08 Yes [id number] 25mg Q.[id number] Take 1 Jelena HCl 25 MG 0-31 [id number] tablet (25 Seybold oral Tablet 00:00: 3D mg total) - 00 by mouth 3 Externa times l daily as needed. hydroCHLORO 2022-08 Yes [id number] 25mg Take 2 Jelena thiazide 0-31 capsules Seybold 12.5 MG 00:00: (25 mg - oral 00 total) by Externa Capsule mouth l daily. Potassium 2022-08 Yes [id number] 1{tbl} Take 1 Jelena Chloride ER 0-31 tablet by Sey bold 20 MEQ oral 00:00: mouth 2 - Tab CR 00 times Externa daily. l Meclizine 2022-08 Yes [id number] 25mg Q.[id number] Take 1 Jelena HCl 25 MG 0-31 [id number] tablet (25 Seybold oral Tablet 00:00: 3D mg total) - 00 by mouth 3 Externa times l daily as needed. hydroCHLORO 2022-08 Yes [id number] 25mg Take 2 Jelena thiazide 0-31 capsules Seybold 12.5 MG 00:00: (25 mg - oral 00 total) by Externa Capsule mouth l daily. Potassium 2022-08- No [id number] 1{tbl} Take 1 Jelena Chloride ER 0-31 11-27 tablet by Se ybold 20 MEQ oral 00:00: 00:00 mouth 2 - Tab CR 00 :00 times Externa daily. l Topiramate 2022-08- No 50mg TAKE ONE Ke lsey 50 MG oral 0-19 11-01 (1) Seybold Tablet 00:00: 00:00 TABLET(S) - 00 :00 BY MOUTH Externa EVERY l TWELVE HOURS. Ketorolac 2022-08 Yes [id number] TAKE ONE Jelena Tromethamin 0-16 (1) TABLET Se ybold e 10 MG 00:00: (10 MG - oral Tablet 00 TOTAL) BY Ext jonathan MOUTH l EVERY 6 HOURS NEEDED FOR PAIN. Ketorolac 2022-1 Yes [id number] TAKE ONE Jelena Tromethamin 0-16 (1) TABLET Se ybold e 10 MG 00:00: (10 MG - oral Tablet 00 TOTAL) BY Ext jonathan MOUTH l EVERY 6 HOURS NEEDED FOR PAIN. Ketorolac 1 Yes [id number] TAKE ONE Jelena Tromethamin 0-16 (1) TABLET Se ybold e 10 MG 00:00: (10 MG - oral Tablet 00 TOTAL) BY Ext jonathan MOUTH l EVERY 6 HOURS NEEDED FOR PAIN. Cyanocobala 0 Yes Take by Reynold sey min 9-28 mouth. Seybold (VITAMIN B 10:25: - 12 OR) 13 Externa l Dicyclomine 0 Yes 20mg Take 1 Ashlie ey HCl 20 MG -28 tablet (20 Seyb old oral Tablet 10:25: mg total) - 13 by mouth Externa every 6 l (six) hours. Trazodone 0 Yes every 24 Ashlie ey HCl 100 MG 9-28 hours Seybold oral Tablet 10:25: - 13 Externa l Topiramate 0 Yes 50mg TAKE ONE Reynold sey 50 MG oral 9-20 (1) Seybold Tablet 00:00: TABLET(S) - 00 BY MOUTH Externa EVERY l TWELVE HOURS. Spacer/Aero 2022-0 Yes See Admin K elsey -Holding 05-11 Instructio Seybo ld Chambers 00:00: ns USE - (Compact 00 DIRECTED Externa Space WITH l Chamber/Lg INHALER. Mask) does not apply Device Spacer/Aero 2022-0 Yes See Admin K elsey -Holding 05-11 Instructio Seybo ld Chambers 00:00: ns USE - (Compact 00 DIRECTED Externa Space WITH l Chamber/Lg INHALER. Mask) does not apply Device Spacer/Aero 2022-0 Yes See Admin K elsey -Holding 05-11 Instructio Seybo ld Chambers 00:00: ns USE - (Compact 00 DIRECTED Externa Space WITH l Chamber/Lg INHALER. Mask) does not apply Device MELOXICAM 2022-0 2022- No 10mg Take 10 mg K elsey OR 05-06- by mouth. Seybold 11:02: 00:00 - 12 :00 Externa l Dicyclomine 3-0 Yes 20mg Take 1 Ashlie ey HCl 20 MG 9-06 tablet (20 Seyb old oral Tablet 10:32: mg total) - 52 by mouth Externa every 6 l (six) hours. Trazodone 2023-0 Yes every 24 Ashlie ey HCl 100 MG 9-06 hours Seybold oral Tablet 10:32: - 52 Externa l Cyanocobala 2022-0 Yes Take by Reynold sey min 9-06 mouth. Seybold (VITAMIN B 10:32: - 12 OR) 52 Externa l Ketorolac 2023-0 Yes [id number] 10mg Q.25D Take 1 Jelena Tromethamin 9-06 tablet (10 Se ybold e 10 MG 00:00: mg total) - oral Tablet 00 by mouth Exte rna every 6 l hours as needed for pain. Ketorolac 3-0 Yes [id number] 10mg Q.25D Take 1 Jelena Tromethamin 9-06 tablet (10 Se ybold e 10 MG 00:00: mg total) - oral Tablet 00 by mouth Exte rna every 6 l hours as needed for pain. Ketorolac 2022-0 3- No [id number] 30mg Ke lsey Tromethamin 04-28 Seybold e (TORADOL) 14:00: 14:09 - 30 mg/mL 00 :00 Externa l Ketorolac 3-0 3- No [id number] 30mg 30 mg, Jelena Tromethamin 04-28 intramuscu S eybold e (TORADOL) 14:00: 14:09 lar, ONCE, - 30 mg/mL 00 :00 On Tue Externa 04/28/23 at l 0900, For 1 dose Cyanocobala 2022-0 Yes Take by Reynold sey min 8-29 mouth Seybold (VITAMIN B 08:57: - 12 OR) 25 Externa l Dicyclomine 2022-0 Yes 20mg Take 1 Ashlie ey HCl 20 MG -29 tablet (20 Seyb old oral Tablet 08:57: mg total) - 25 by mouth Externa every 6 l (six) hours. Trazodone 2023-0 Yes every 24 Ashlie ey HCl 100 MG 8-29 hours Seybold oral Tablet 08:57: - 25 Externa l MELOXICAM 3-0 Yes 10mg Take 10 mg Ke lsey OR 8-29 by mouth. Seybold 08:57: - 25 Externa l Losartan 3-0 Yes [id number] 100mg TAKE ONE Jelena Potassium 8-28 (1) Seybold (COZAAR) 00:00: TABLET(S) - 100 MG oral 00 BY MOUTH Exte rna Tablet ONCE A l DAY. Aripiprazol 2022-0 Yes 1{tbl} Take 1 Ke lsey e 20 MG 8-28 tablet by Seybold oral Tablet 00:00: mouth at - 00 bedtime. Externa l Losartan 3-0 Yes [id number] 100mg TAKE ONE Jelena Potassium 8-28 (1) Seybold (COZAAR) 00:00: TABLET(S) - 100 MG oral 00 BY MOUTH Exte rna Tablet ONCE A l DAY. Aripiprazol 2022-0 Yes 1{tbl} Take 1 Ke lsey e 20 MG 8-28 tablet by Seybold oral Tablet 00:00: mouth at - 00 bedtime. Externa l Losartan 3-0 Yes [id number] 100mg TAKE ONE Jelena Potassium 8-28 (1) Seybold (COZAAR) 00:00: TABLET(S) - 100 MG oral 00 BY MOUTH Exte rna Tablet ONCE A l DAY. Aripiprazol 2022-0 Yes 1{tbl} Take 1 Ke lsey e 20 MG 8-28 tablet by Seybold oral Tablet 00:00: mouth at - 00 bedtime. Externa l Aripiprazol 3-0 Yes 1{tbl} Take 1 Ke lsey e 20 MG 8-28 tablet by Seybold oral Tablet 00:00: mouth at - 00 bedtime. Externa l Aripiprazol 3-0 Yes 1{tbl} Take 1 Ke lsey e 20 MG 8-28 tablet by Seybold oral Tablet 00:00: mouth at - 00 bedtime. 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 Aripiprazol 0 2022- No Abilify Ke lsey e (Abilify) 8-25 08-25 Seybold 10 MG oral 08:57: 00:00 - Tablet 54 :00 Externa l Fluticasone 2022-0 Yes [id number] 1{puff} Inhale 1 Jelena -Salmeterol 8-25 6 puff into Sey bold (Advair 00:00: the lungs - Diskus) 00 2 times Externa 100-50 daily. l MCG/ACT inhalation AEROSOL POWDER, BREATH ACTIVATED Fluticasone 2022-0 Yes [id number] 1{puff} Inhale 1 Jelena -Salmeterol 8-25 6 puff into Sey bold (Advair 00:00: the lungs - Diskus) 00 2 times Externa 100-50 daily. l MCG/ACT inhalation AEROSOL POWDER, BREATH ACTIVATED Fluticasone 2022-0 Yes [id number] 1{puff} Inhale 1 Jelena -Salmeterol 8-25 6 puff into Sey bold (Advair 00:00: the lungs - Diskus) 00 2 times Externa 100-50 daily. l MCG/ACT inhalation AEROSOL POWDER, BREATH ACTIVATED Fluticasone 3-0 Yes [id number] 1{puff} Inhale 1 Jelena -Salmeterol 8-25 6 puff into Sey bold (Advair 00:00: the lungs - Diskus) 00 2 times Externa 100-50 daily. l MCG/ACT inhalation AEROSOL POWDER, BREATH ACTIVATED Fluticasone 2023-0 Yes [id number] 1{puff} Inhale 1 Jelena -Salmeterol 8-25 6 puff into Sey bold (Advair 00:00: the lungs - Diskus) 00 2 times Externa 100-50 daily. l MCG/ACT inhalation AEROSOL POWDER, BREATH ACTIVATED Fluticasone 3-0 Yes [id number] 1{puff} Inhale 1 Jelena -Salmeterol 8-25 6 puff into Sey bold (Advair 00:00: the lungs - Diskus) 00 2 times Externa 100-50 daily. l MCG/ACT inhalation AEROSOL POWDER, BREATH ACTIVATED Fluticasone 2023-0 Yes [id number] 1{puff} Inhale 1 Jelena -Salmeterol 8-25 6 puff into Sey bold (Advair 00:00: the lungs - Diskus) 00 2 times Externa 100-50 daily. l MCG/ACT inhalation AEROSOL POWDER, BREATH ACTIVATED Fluticasone 3-0 2023- No [id number] 1{puff} Inhale 1 Jelena -Salmeterol 8-25 08-25 6 puff into Se ybold (Advair 00:00: 00:00 the lungs - Diskus) 00 :00 2 times Externa 100-50 daily. l MCG/ACT inhalation AEROSOL POWDER, BREATH ACTIVATED Potassium 2022-0 Yes [id number] 1{tbl} TAKE ONE Jelena Chloride ER 8-22 (1) Seybold 20 MEQ oral 00:00: TABLET(S) - Tab CR 00 BY MOUTH Externa DAILY. l Meclizine 2022-0 Yes [id number] TAKE ONE Jelena HCl 25 MG 8-22 (1) Seybold oral Tablet 00:00: TABLET(S) - 00 BY MOUTH Externa THREE l TIMES A DAY NEEDED. FeroSul 325 2022-0 Yes [id number] TAKE ONE Jelena (65 Fe) MG 8-22 (1) TABLET Sey bold oral Tablet 00:00: (325 MG - 00 TOTAL) BY Externa MOUTH l DAILY (WITH BREAKFAST) . Topiramate 2022-0 Yes 50mg Take 1 Kelse y 50 MG oral 8-22 tablet (50 Sey bold Tablet 00:00: mg total) - 00 by mouth Externa every 12 l hours. Potassium 2022-0 Yes [id number] 1{tbl} TAKE ONE Jelena Chloride ER 8-22 (1) Seybold 20 MEQ oral 00:00: TABLET(S) - Tab CR 00 BY MOUTH Externa DAILY. l Meclizine 2022-0 Yes [id number] TAKE ONE Jelena HCl 25 MG 8-22 (1) Seybold oral Tablet 00:00: TABLET(S) - 00 BY MOUTH Externa THREE l TIMES A DAY NEEDED. FeroSul 325 2022-0 Yes [id number] TAKE ONE Jelena (65 Fe) MG 8-22 (1) TABLET Sey bold oral Tablet 00:00: (325 MG - 00 TOTAL) BY Externa MOUTH l DAILY (WITH BREAKFAST) . FeroSul 325 2022-0 Yes [id number] TAKE ONE Jelena (65 Fe) MG 8-22 (1) TABLET Sey bold oral Tablet 00:00: (325 MG - 00 TOTAL) BY Externa MOUTH l DAILY (WITH BREAKFAST) . FeroSul 325 2022-0 Yes [id number] TAKE ONE Jelena (65 Fe) MG 8-22 (1) TABLET Sey bold oral Tablet 00:00: (325 MG - 00 TOTAL) BY Externa MOUTH l DAILY (WITH BREAKFAST) . FeroSul 325 2022-0 Yes [id number] TAKE ONE Jelena (65 Fe) MG 8-22 (1) TABLET Sey bold oral Tablet 00:00: (325 MG - 00 TOTAL) BY Externa MOUTH l DAILY (WITH BREAKFAST) . Potassium 3-0 Yes [id number] 1{tbl} TAKE ONE Jelena Chloride ER 8-22 (1) Seybold 20 MEQ oral 00:00: TABLET(S) - Tab CR 00 BY MOUTH Externa DAILY. l Meclizine 2022-0 Yes [id number] TAKE ONE Jelena HCl 25 MG 8-22 (1) Seybold oral Tablet 00:00: TABLET(S) - 00 BY MOUTH Externa THREE l TIMES A DAY NEEDED. FeroSul 325 3-0 Yes [id number] TAKE ONE Jelena (65 Fe) MG 8-22 (1) TABLET Sey bold oral Tablet 00:00: (325 MG - 00 TOTAL) BY Externa MOUTH l DAILY (WITH BREAKFAST) . Topiramate 2022-0 Yes 50mg Take 1 Kelse y 50 MG oral 8-22 tablet (50 Sey bold Tablet 00:00: mg total) - 00 by mouth Externa every 12 l hours. Potassium 2022-0 Yes [id number] 1{tbl} TAKE ONE Jelena Chloride ER 8-22 (1) Seybold 20 MEQ oral 00:00: TABLET(S) - Tab CR 00 BY MOUTH Externa DAILY. l Meclizine 2022-0 Yes [id number] TAKE ONE Jelena HCl 25 MG 8-22 (1) Seybold oral Tablet 00:00: TABLET(S) - 00 BY MOUTH Externa THREE l TIMES A DAY NEEDED. FeroSul 325 2022-0 Yes [id number] TAKE ONE Jelena (65 Fe) MG 8-22 (1) TABLET Sey bold oral Tablet 00:00: (325 MG - 00 TOTAL) BY Externa MOUTH l DAILY (WITH BREAKFAST) . Topiramate 2022-0 Yes 50mg Take 1 Kelse y 50 MG oral 8-22 tablet (50 Sey bold Tablet 00:00: mg total) - 00 by mouth Externa every 12 l hours. Topiramate 2022-0 3- No TAKE TWO Ke lsey 25 MG oral 8-21 08-25 (2) Seybold Tablet 00:00: 00:00 TABLETS - 00 :00 EVERY 12 Externa HOURS. l cholecalcif 2022-0 Yes [id number] Q7D Take [address] [facility], [...] 00 (two) Center packet times daily. propranoloL 3-0 Yes 10mg Q.[id number] Take [address] [facility] (INDERAL) 8-17 [id number] tablet (10 [facility] 10 MG 11:24: 3D [...] 00 total) by Center mouth daily. budesonide 3-0 Yes 1{puff} Q.5D Inhale [address] [facility] [address] (PULMICORT) 8-17 puff by [facility] 180 11:24: mouth via Medical mcg/actuati [address] on inhaler (two) times daily. cholecalcif 2023-0 Yes [id number] Q7D Take [address] [facility], 8-17 tablet [facility] vitamin D3, 11:24: (50,000 Med ical 1,250 mcg 00 Units Center (50,000 total) by unit) Tab mouth once a week. cyanocobala 3-0 Yes 100ug QD Take [address] [facility] [...] packet times daily. propranoloL 2023-0 Yes 10mg Q.[id number] Take [address] [facility] (INDERAL) 8-17 [id number] tablet (10 [facility] 10 MG 11:24: 3D mg total) Medical tablet 00 by mouth 3 Center (three) times daily. topiramate 2023-0 Yes 25mg Q.5D Take 1 [facility] (TOPAMAX) 8-17 tablet (25 [facility] 25 MG 11:24: mg total) Medical tablet 00 by mouth 2 Center (two) times daily. traMADoL 3-0 Yes 50mg Take [address] [facility] (ULTRAM) [...] inhaler (two) times daily. cholecalcif 2022-0 Yes [id number] Q7D Take [address] [facility], [...] 00 total) by Center mouth daily. meclizine 3-0 Yes 25mg Take [address] [facility] (ANTIVERT) [...] packet times daily. propranoloL 2023-0 Yes 10mg Q.[id number] Take [address] [facility] [address] (INDERAL) 8-17 [id number] tablet (10 [facility] 10 MG 11:24: 3D [...] 00 total) by Center mouth daily. budesonide 3-0 Yes 1{puff} Q.5D Inhale [address] (PULMICORT) 8-17 puff by [facility] 180 11:24: mouth via Medical mcg/actuati [address] on inhaler (two) times daily. cholecalcif 2023-0 Yes [id number] Q7D Take [address] [facility], [...] inhaler (two) times daily. cholecalcif 2022-0 Yes [id number] Q7D Take [address] [facility], [...] 68 mg 00 once. Center implant ondansetron 2023-0 Yes 4mg Take 1 [facility] [...] packet times daily. propranoloL 2023-0 Yes 10mg Q.[id number] Take [address] [facility] (INDERAL) 8-17 [id number] tablet (10 [facility] 10 MG 11:24: 3D [...] packet times daily. propranoloL 2022-0 Yes 10mg Q.[id number] Take [address] [facility] (INDERAL) 8-17 [id number] tablet (10 [facility] 10 MG 11:24: 3D [...] inhaler (two) times daily. cholecalcif 2022-0 Yes [id number] Q7D Take [address] [facility], [...] packet times daily. propranoloL 2023-0 Yes 10mg Q.[id number] Take [address] [facility] (INDERAL) 8-17 [id number] tablet (10 [facility] 10 MG 11:24: 3D [...] 00 total) by Center mouth nightly. albuterol Yes 1{puff} Inhale [address] [facility]FA 8-17 puff by [facility] (VENTOLIN 11:24: mouth via Med ical HFA) 90 00 inhaler Center mcg/actuati every 6 on inhaler (six) hours as needed for Wheezing. ARIPiprazol Yes 15mg QD Take 1.[address] [facility] (ABILIFY) 8-17 tablets [facility] 10 MG 11:24: (15 mg Medical tablet 00 total) by Center mouth daily. budesonide Yes 1{puff} Q.5D Inhale [address] (PULMICORT) 8-17 puff by [facility] 180 11:24: mouth via Medical mcg/actuati [address] on inhaler (two) times daily. Cyanocobala Yes Take by Reynold sey min 7-12 mouth Seybold (VITAMIN B 10:25: - 12 OR) 36 Externa l Metoclopram Yes 10mg Take 1 Ashlie ey jonathan HCl 7-12 tablet (10 Seybol d (Reglan) 10 10:25: mg total) - MG oral 36 by mouth 4 Raw Cheese Worker a Tablet times l daily Dicyclomine Yes 20mg Take 1 Ashlie ey HCl 20 MG 7-12 tablet (20 Seyb old oral Tablet 10:25: mg total) - 36 by mouth Externa every 6 l (six) hours Aripiprazol Yes Abilify Reynold sey e (Abilify) 7-12 Seybold 10 MG oral 10:25: - Tablet 36 Externa l Trazodone 0 Yes every 24 Ashlie ey HCl 100 MG 7-12 hours Seybold oral Tablet 10:25: - 36 Externa l Topiramate Yes TAKE ONE Reynold sey 25 MG [...] l inhalation EIGHT Inhalant HOURS Solution NEEDED. Nebulizers 2022-0 Yes See Admin Ke lsey (Vios LC 6-24 Instructio Seybo ld Plus) does 00:00: ns. - not apply 00 Externa Misc l Albuterol Yes INHALE ONE Ke lsey (PROVENTIL) 24 (1) VIAL Seyb old (2.5 00:00: VIA - MG/3ML) 00 NEBULIZER Externa 0.083% EVERY l inhalation EIGHT Inhalant HOURS Solution NEEDED. Nebulizers Yes See Admin Ke lsey (Vios LC 6-24 Instructio Seybo ld Plus) does 00:00: ns. - not apply 00 Externa Misc l Albuterol Yes INHALE ONE Ke lsey (PROVENTIL) 24 (1) VIAL Seyb old (2.5 00:00: VIA - MG/3ML) 00 NEBULIZER Externa 0.083% EVERY l inhalation EIGHT Inhalant HOURS Solution NEEDED. predniSONE Yes TAKE FOUR Ke lsey (DELTASONE) 24 (4) Seybold 10 MG oral 00:00: TABLET(S) [...] - 12 OR) 18 Externa l Metoclopram 0 Yes 10mg Take 1 Ashlie ey jonathan HCl 6-21 tablet (10 Seybol d (Reglan) 10 11:04: mg total) - MG oral 18 by mouth 4 Raw Cheese Worker a Tablet times l daily Dicyclomine Yes 20mg Take 1 Ashlie ey HCl 20 MG 6-21 tablet (20 Seyb old oral Tablet 11:04: mg total) - 18 by mouth Externa every 6 l (six) hours Aripiprazol 2022-0 Yes Abilify Reynold sey e (Abilify) 6-21 Seybold 10 MG oral 11:04: - Tablet 18 Externa l Trazodone 2023-0 Yes every 24 Ashlie ey HCl 100 MG 6-21 hours Seybold oral Tablet 11:04: - 18 Externa l Propranolol 2023-0 Yes [id number] 10mg Take 1 Jelena HCl 10 MG 6-21 tablet (10 Seyb old oral Tablet 00:00: mg total) - 00 by mouth 3 Externa times l daily hydroCHLORO 2023-0 Yes [id number] 12.5mg Take 1 Jelena thiazide 6-21 capsule Seybold 12.5 MG 00:00: (12.5 mg - oral 00 total) by Externa Capsule mouth l daily Propranolol 2023-0 Yes [id number] 10mg Take 1 Jelena HCl 10 MG 6-21 tablet (10 Seyb old oral Tablet 00:00: mg total) - 00 by mouth 3 Externa times l daily hydroCHLORO 2023-0 Yes [id number] 12.5mg Take 1 Jelena thiazide 6-21 capsule Seybold 12.5 MG 00:00: (12.5 mg - oral 00 total) by Externa Capsule mouth l daily Propranolol 2023-0 Yes [id number] 10mg Take 1 Jelena HCl 10 MG 6-21 tablet (10 Seyb old oral Tablet 00:00: mg total) - 00 by mouth 3 Externa times l daily Propranolol 2023-0 Yes [id number] 10mg Take 1 Jelena HCl 10 MG 6-21 tablet (10 Seyb old oral Tablet 00:00: mg total) - 00 by mouth 3 Externa times l daily Propranolol 2023-0 Yes [id number] 10mg Take 1 Jelena HCl 10 MG 6-21 tablet (10 Seyb old oral Tablet 00:00: mg total) - 00 by mouth 3 Externa times l daily Potassium 2023-0 Yes [id number] 1{tbl} Take 1 Jelena Chloride ER 6-21 tablet by Sey bold 20 MEQ oral 00:00: mouth - Tab CR 00 daily Externa l Propranolol 2023-0 Yes [id number] 10mg Take 1 Jelena HCl 10 MG 6-21 tablet (10 Seyb old oral Tablet 00:00: mg total) - 00 by mouth 3 Externa times l daily Budesonide 2023-0 Yes [id number] Inhale 2 Jelena 90 MCG/ACT 6-21 inhalation Sey bold inhalation 00:00: s into the - AEROSOL 00 lungs Externa POWDER, daily l BREATH ACTIVATED hydroCHLORO 2023-0 Yes [id number] 12.5mg Take 1 Jelena thiazide 6-21 capsule Seybold 12.5 MG 00:00: (12.5 mg - oral 00 total) by Externa Capsule mouth l daily Potassium 2023-0 Yes [id number] 1{tbl} Take 1 Jelena Chloride ER 6-21 tablet by Sey bold 20 MEQ oral 00:00: mouth - Tab CR 00 daily Externa l Propranolol 2023-0 Yes [id number] 10mg Take 1 Jelena HCl 10 MG 6-21 tablet (10 Seyb old oral Tablet 00:00: mg total) - 00 by mouth 3 Externa times l daily Budesonide 2023-0 Yes [id number] Inhale 2 Jelean 90 MCG/ACT 6-21 inhalation Sey bold inhalation 00:00: s into the - AEROSOL 00 lungs Externa POWDER, daily l BREATH ACTIVATED hydroCHLORO 2023-0 Yes [id number] 12.5mg Take 1 Jelena thiazide 6-21 capsule Seybold 12.5 MG 00:00: (12.5 mg - oral 00 total) by Externa Capsule mouth l daily Propranolol 2023-0 Yes [id number] 10mg Take 1 Jelena HCl 10 MG 6-21 tablet (10 Seyb old oral Tablet 00:00: mg total) - 00 by mouth 3 Externa times l daily hydroCHLORO 2023-0 Yes [id number] 12.5mg Take 1 Jelena thiazide 6-21 capsule Seybold 12.5 MG 00:00: (12.5 mg - oral 00 total) by Externa Capsule mouth l daily Propranolol 2023-0 Yes [id number] 10mg Take 1 Jelena HCl 10 MG 6-21 tablet (10 Seyb old oral Tablet 00:00: mg total) - 00 by mouth 3 Externa times l daily hydroCHLORO 2023-0 Yes [id number] 12.5mg Take 1 Jelena thiazide 6-21 capsule Seybold 12.5 MG 00:00: (12.5 mg - oral 00 total) by Externa Capsule mouth l daily Budesonide 2023-0 2023- No [id number] Inhale 2 Jelena 90 MCG/ACT 6-21 08-25 inhalation Se ybold inhalation 00:00: 00:00 s into the - AEROSOL 00 :00 lungs Externa POWDER, daily l BREATH ACTIVATED Meclizine 2022-0 Yes [id number] TAKE ONE Jelena HCl 25 MG 6-19 (1) Seybold oral Tablet 00:00: TABLET(S) - 00 BY MOUTH Externa THREE l TIMES A DAY NEEDED. Meclizine 2022-0 Yes [id number] TAKE ONE Jelena HCl 25 MG 6-19 (1) Seybold oral Tablet 00:00: TABLET(S) - 00 BY MOUTH Externa THREE l TIMES A DAY NEEDED. Gabapentin 2022-0 Yes [id number] 100mg Take 1 Jelena 100 MG oral 6-18 capsule Seybo ld Capsule 00:00: (100 mg - 00 total) by Externa mouth 3 l times daily Gabapentin 2022-0 2022- No [id number] 100mg Take 1 Jelena 100 MG oral 6-18 07-12 capsule Seyb old Capsule 00:00: 00:00 (100 mg - 00 :00 total) by Externa mouth 3 l times daily Losartan 2022-0 Yes [id number] 100mg Take 1 Ke lsey Potassium 6-05 tablet Seybold (COZAAR) 00:00: (100 mg - 100 MG oral 00 total) by Ext jonathan Tablet mouth l daily Losartan 2022-0 Yes [id number] 100mg Take 1 Ke lsey Potassium 6-05 tablet Seybold (COZAAR) 00:00: (100 mg - 100 MG oral 00 total) by Ext jonathan Tablet mouth l daily Losartan 2022-0 Yes [id number] 100mg Take 1 Ke lsey Potassium 6-05 tablet Seybold (COZAAR) 00:00: (100 mg - 100 MG oral 00 total) by Ext jonathan Tablet mouth l daily Metoclopram 2022-0 Yes 10mg Take 1 Ashlie ey jonathan HCl 5-31 tablet (10 Seybol d (Reglan) 10 10:58: mg total) - MG oral 34 by mouth 4 [employer] Worker a Tablet times l daily Dicyclomine 2022-0 [...] po q 12 hrs, Meclizine 2022-0 Yes [id number] TAKE ONE Jelena HCl 25 MG 5-22 (1) Seybold oral Tablet 00:00: TABLET(S) - 00 BY MOUTH Externa THREE l TIMES A DAY NEEDED. Meclizine 2022-0 2022- No [id number] TAKE ONE Jelena HCl 25 MG 5-22 06-19 (1) Seybold oral Tablet 00:00: 00:00 TABLET(S) - 00 :00 BY MOUTH Externa THREE l TIMES A DAY NEEDED. Losartan 2022-0 Yes [id number] 1{tbl} Take 1 K elsey Potassium-H 5-15 tablet by Sey bold CTZ 50-12.5 00:00: mouth - MG oral 00 daily Externa Tablet l Gabapentin 2022-0 Yes [id number] 100mg Take 1 Jelena 100 MG oral 5-15 capsule Seybo ld Capsule 00:00: (100 mg - 00 total) by Externa mouth 3 l times daily Gabapentin 2022-0 2022- No [id number] 100mg Take 1 Jelena 100 MG oral 5-15 06-16 capsule Seyb old Capsule 00:00: 00:00 (100 mg - 00 :00 total) by Externa mouth 3 l times daily Cholecalcif 2022-0 Yes Jelena juan 5-06 Seybold (Vitamin 00:00: - D3) 1.25 MG 00 Externa (59511 UT) l oral Capsule Cholecalcif 2022-0 Yes Jelena juan 5-06 Seybold (Vitamin 00:00: - D3) 1.25 MG 00 Externa (88012 UT) l oral Capsule Cholecalcif 2023-0 Yes Jelena juan 5-06 Seybold (Vitamin 00:00: - D3) 1.25 MG 00 Externa (46150 UT) l oral Capsule Cholecalcif 0 Yes Jelena juan 5-06 Seybold (Vitamin 00:00: - D3) 1.25 MG 00 Externa (96117 UT) l oral Capsule Cholecalcif 0 Yes Jelena juan 5-06 Seybold (Vitamin 00:00: - D3) 1.25 MG 00 Externa (16143 UT) l oral Capsule Cholecalcif Yes TAKE ONE Ke lsey juan 5-06 (1) Seybold (Vitamin 00:00: CAPSULE(S) - D3) 1.25 MG 00 BY MOUTH Exte rna (46723 UT) TWICE A l oral WEEK. Capsule Cholecalcif Yes TAKE ONE Jc lsey juan 5-06 (1) Seybold (Vitamin 00:00: CAPSULE(S) - D3) 1.25 MG 00 BY MOUTH Exte rna (52709 UT) TWICE A l oral WEEK. Capsule Cholecalcif Yes TAKE ONE Jc lsey juan 5-06 (1) Seybold (Vitamin 00:00: CAPSULE(S) - D3) 1.25 MG 00 BY MOUTH Exte rna (10551 UT) TWICE A l oral WEEK. Capsule Cholecalcif Yes Jelena juan 5-06 Seybold (Vitamin 00:00: - D3) 1.25 MG 00 Externa (68955 UT) l oral Capsule Trazodone 2022- No [id number] 100mg Take 1 Jelena HCl 100 MG 5- 05-01 tablet Seybol d oral Tablet 11:10: 00:00 (100 mg - 14 :00 total) by Externa mouth at l bedtime Cyanocobala Yes Take by Reynold sey min 5-01 mouth Seybold (VITAMIN B 09:56: - 12 OR) 28 Externa l Tramadol 0 Yes [id number] 50mg Q.25D Take 1 K elsey HCl 5- tablet (50 Seybold (ULTRAM) 50 00:00: mg total) - MG oral 00 by mouth Externa Tablet every 6 l hours as needed for pain Tramadol 0 Yes [id number] 50mg Q.25D Take 1 K elsey HCl 5-01 tablet (50 Seybold (ULTRAM) 50 00:00: mg total) - MG oral 00 by mouth Externa Tablet every 6 l hours as needed for pain Tramadol 2023-0 Yes [id number] 50mg Q.25D Take 1 K elsey HCl 5-01 tablet (50 Seybold (ULTRAM) 50 00:00: mg total) - MG oral 00 by mouth Externa Tablet every 6 l hours as needed for pain Tramadol 3-0 Yes [id number] 50mg Q.25D Take 1 K elsey HCl 5-01 tablet (50 Seybold (ULTRAM) 50 00:00: mg total) - MG oral 00 by mouth Externa Tablet every 6 l hours as needed for pain Tramadol 3-0 2023- No [id number] 50mg Q.25D Take 1 Jelena HCl 5-01 08-25 tablet (50 Seybold (ULTRAM) 50 00:00: 00:00 mg total) - MG oral 00 :00 by mouth Externa Tablet every 6 l hours as needed for pain hydrOXYzine 3-0 Yes Jelena HCl 25 MG [...] - 00 Externa l Trazodone 3-0 Yes [id number] 100mg Take 1 K elsey HCl 100 MG 4-24 tablet Seybold oral Tablet 08:55: (100 mg - 22 total) by Externa mouth at l bedtime Cyanocobala 2022-0 Yes Take by Reynold sey min 4-24 mouth Seybold (VITAMIN B 08:55: - 12 OR) 22 Externa l Albuterol 2022-0 Yes [id number] 2{puff} Q.25D Inhale 2 Jelena HFA 108 (90 4-24 puffs into Se ybold Base) 00:00: the lungs - MCG/ACT IN 00 every 6 Raw [employer] Worker a AERS hours as l needed for wheezing or shortness of breath Albuterol 2022-0 Yes [id number] 2{puff} Q.25D Inhale 2 Jelena HFA 108 (90 4-24 puffs into Se ybold Base) 00:00: the lungs - MCG/ACT IN 00 every 6 [employer] Worker a AERS hours as l needed for wheezing or shortness of breath Albuterol 3-0 Yes [id number] 2{puff} Q.25D Inhale 2 Jelena HFA 108 (90 4-24 puffs into Se ybold Base) 00:00: the lungs - MCG/ACT IN 00 every 6 [employer] Worker a AERS hours as l needed for wheezing or shortness of breath Albuterol 3-0 Yes [id number] 2{puff} Q.25D Inhale 2 Jelena HFA 108 (90 4-24 puffs into Se ybold Base) 00:00: the lungs - MCG/ACT IN 00 every 6 [employer] Worker a AERS hours as l needed for wheezing or shortness of breath Albuterol 2023-0 Yes [id number] 2{puff} Q.25D Inhale 2 Jelena HFA 108 (90 4-24 puffs into Se ybold Base) 00:00: the lungs - MCG/ACT IN 00 every 6 Raw [employer] Worker a AERS hours as l needed for wheezing or shortness of breath Albuterol 2022-0 Yes [id number] 2{puff} Q.25D Inhale 2 Jelena HFA 108 (90 4-24 puffs into Se ybold Base) 00:00: the lungs - MCG/ACT IN 00 every 6 [employer] Worker a AERS hours as l needed for wheezing or shortness of breath Meclizine 2022-0 Yes [id number] TAKE ONE Jelena HCl 25 MG 4-24 (1) Seybold oral Tablet 00:00: TABLET(S) - 00 BY MOUTH Externa THREE l TIMES A DAY NEEDED. Albuterol 2022-0 Yes [id number] 2{puff} Q.25D Inhale 2 Jelena HFA 108 (90 4-24 puffs into Se ybold Base) 00:00: the lungs - MCG/ACT IN 00 every 6 Raw [employer] Worker a AERS hours as l needed for wheezing or shortness of breath Albuterol 2022-0 Yes [id number] 2{puff} Q.25D Inhale 2 Jelena HFA 108 (90 4-24 puffs into Se ybold Base) 00:00: the lungs - MCG/ACT IN 00 every 6 Raw [employer] Worker a AERS hours as l needed for wheezing or shortness of breath Albuterol 2022-0 Yes [id number] 2{puff} Q.25D Inhale 2 Jelena HFA 108 (90 4-24 puffs into Se ybold Base) 00:00: the lungs - MCG/ACT IN 00 every 6 Raw [employer] Worker a AERS hours as l needed for wheezing or shortness of breath Albuterol 2022-0 Yes [id number] 2{puff} Q.25D Inhale 2 Jelena HFA 108 (90 4-24 puffs into Se ybold Base) 00:00: the lungs - MCG/ACT IN 00 every 6 Raw [employer] Worker a AERS hours as l needed for wheezing or shortness of breath Albuterol 2022-0 Yes [id number] 2{puff} Q.25D Inhale 2 Jelena HFA 108 (90 4-24 puffs into Se ybold Base) 00:00: the lungs - MCG/ACT IN 00 every 6 Raw [employer] Worker a AERS hours as l needed for wheezing or shortness of breath Albuterol 2023-0 Yes [id number] 2{puff} Q.25D Inhale 2 Jelena HFA 108 (90 4-24 puffs into Se ybold Base) 00:00: the lungs - MCG/ACT IN 00 every 6 Raw [employer] Worker a AERS hours as l needed for wheezing or shortness of breath Cyclobenzap 2023-0 Yes 10mg Q.[id number] Take 1 Jelena rine HCl 10 4-22 [id number] tablet (10 Seybold MG oral 00:00: 3D mg total) - Tablet 00 by mouth Externa every 8 l hours as needed. Cyclobenzap 2023-0 Yes 10mg Q.[id number] Take 1 Jelena rine HCl 10 4-22 [id number] tablet (10 Seybold MG oral 00:00: 3D mg total) - Tablet 00 by mouth Externa every 8 l hours as needed. Cyclobenzap 2023-0 Yes 10mg Q.00409074 Take 1 Jelena rine HCl 10 4-22 [id number] tablet (10 Seybold MG oral 00:00: 3D mg total) - Tablet 00 by mouth Externa every 8 l hours as needed. Cyclobenzap 2023-0 Yes 10mg Q.[id number] Take 1 Jelena rine HCl 10 4-22 [id number] tablet (10 Seybold MG oral 00:00: 3D mg total) - Tablet 00 by mouth Externa every 8 l hours as needed. Cyclobenzap 2023-0 Yes 10mg Q.[id number] Take 1 Jelena rine HCl 10 4-22 [id number] tablet (10 Seybold MG oral 00:00: 3D mg total) - Tablet 00 by mouth Externa every 8 l hours as needed. Cyclobenzap 2023-0 Yes 10mg Q.[id number] Take 1 Jelena rine HCl 10 4-22 [id number] tablet (10 Seybold MG oral 00:00: 3D mg total) - Tablet 00 by mouth Externa every 8 l hours as needed Cyclobenzap 2023-0 Yes 10mg Q.[id number] Take 1 Jelena rine HCl 10 4-22 [id number] tablet (10 Seybold MG oral 00:00: 3D mg total) - Tablet 00 by mouth Externa every 8 l hours as needed Cyclobenzap 2023-0 Yes 10mg Q.12078413 Take 1 Jelena rine HCl 10 4-22 [id number] tablet (10 Seybold MG oral 00:00: 3D mg total) - Tablet 00 by mouth Externa every 8 l hours as needed Cyclobenzap 2023-0 Yes 10mg Q.[id number] Take 1 Jelena rine HCl 10 4-22 [id number] tablet (10 Seybold MG oral 00:00: 3D mg total) - Tablet 00 by mouth Externa every 8 l hours as needed Cyclobenzap 2023-0 Yes 10mg Q.[id number] Take 1 Jelena rine HCl 10 4-22 [id number] tablet (10 Seybold MG oral 00:00: 3D mg total) - Tablet 00 by mouth Externa every 8 l hours as needed Cyclobenzap 2023-0 Yes 10mg Q.[id number] Take 1 Jelena rine HCl 10 4-22 [id number] tablet (10 Seybold MG oral 00:00: 3D mg total) - Tablet 00 by mouth Externa every 8 l hours as needed Cyclobenzap 2023-0 Yes 10mg Q.[id number] Take 1 Jelena rine HCl 10 4-22 [id number] tablet (10 Seybold MG oral 00:00: 3D mg total) - Tablet 00 by mouth Externa every 8 l hours as needed. Gabapentin 2023-0 Yes [id number] 100mg Take 1 Jelena 100 MG oral 4-20 capsule Seybo ld Capsule 00:00: (100 mg - 00 total) by Externa mouth 3 l times daily Gabapentin 2023-0 Yes [id number] 100mg Take 1 Jelena 100 MG oral [...] Externa at l bedtime. Trazodone 2023-0 Yes [id number] 100mg Take 1 K elsey HCl 100 MG 4-13 tablet Seybold oral Tablet 10:58: (100 mg - 09 total) by Externa mouth at l bedtime Cyanocobala 3-0 Yes Take by Reynold sey min 4-13 mouth Seybold (VITAMIN B 10:58: - 12 OR) 09 Externa l Trazodone 3-0 Yes [id number] 100mg Take 1 K elsey HCl 100 [...] Release daily as needed. Propranolol 2023-0 Yes [id number] TAKE ONE Jelena HCl 10 MG 4-10 (1) Seybold oral Tablet 00:00: TABLET(S) - 00 BY MOUTH Externa THREE l TIMES A DAY. Propranolol 2023-0 Yes [id number] TAKE ONE Jelena HCl 10 MG 4-10 [...] Release daily as needed Propranolol 2023-0 Yes [id number] TAKE ONE Jelena HCl 10 MG 4-10 [...] Release daily as needed Propranolol 2023-0 Yes [id number] TAKE ONE Jelena HCl 10 MG 4-10 [...] times Release daily as needed. Propranolol 3-0 2023- No [id number] TAKE ONE Jelena HCl 10 MG 4-10 06-21 (1) Seybold oral Tablet 00:00: 00:00 TABLET(S) - 00 :00 BY MOUTH Externa THREE l TIMES A DAY. Meloxicam 3-0 Yes [id number] 15mg Take 1 Jelena 15 MG oral 4-06 tablet (15 Sey bold Tablet 00:00: mg total) - 00 by mouth Externa daily l Meloxicam 3-0 Yes [id number] 15mg Take 1 Jelena 15 MG oral 4-06 tablet (15 Sey bold Tablet 00:00: mg total) - 00 by mouth Externa daily l Meloxicam 3-0 Yes [id number] 15mg Take 1 Jelena 15 MG oral 4-06 tablet (15 Sey bold Tablet 00:00: mg total) - 00 by mouth Externa daily l Meloxicam 3-0 Yes [id number] 15mg Take 1 Jelena 15 MG oral 4-06 tablet (15 Sey bold Tablet 00:00: mg total) - 00 by mouth Externa daily l Meloxicam 3-0 Yes [id number] 15mg Take 1 Jelena 15 MG oral 4-06 tablet (15 Sey bold Tablet 00:00: mg total) - 00 by mouth Externa daily l Meloxicam 3-0 Yes [id number] 15mg Take 1 Jelena 15 MG oral 4-06 tablet (15 Sey bold Tablet 00:00: mg total) - 00 by mouth Externa daily l Meloxicam 2023-0 Yes [id number] 15mg Take 1 Jelena 15 MG oral 4-06 tablet (15 Sey bold Tablet 00:00: mg total) - 00 by mouth Externa daily l Meloxicam 3-0 Yes [id number] 15mg Take 1 Jelena 15 MG oral 4-06 tablet (15 Sey bold Tablet 00:00: mg total) - 00 by mouth Externa daily l Meloxicam 2023-0 Yes [id number] 15mg Take 1 Jelena 15 MG oral 4-06 tablet (15 Sey bold Tablet 00:00: mg total) - 00 by mouth Externa daily l Meloxicam 3-0 3- No [id number] 15mg Take 1 Jelena 15 MG oral [...] mouth l every morning. Meclizine 3-0 Yes [id number] TAKE ONE Jelena HCl 25 MG 3-24 (1) Seybold oral Tablet 00:00: TABLET(S) - 00 BY MOUTH Externa THREE l TIMES A DAY NEEDED. Meclizine 3-0 Yes [id number] TAKE ONE Jelnea HCl 25 MG 3-24 (1) Seybold oral Tablet 00:00: TABLET(S) - 00 BY MOUTH Externa THREE l TIMES A DAY NEEDED. Meclizine 2023-0 Yes [id number] TAKE ONE Jelena HCl 25 MG 3-24 (1) Seybold oral Tablet 00:00: TABLET(S) - 00 BY MOUTH Externa THREE l TIMES A DAY NEEDED. Losartan 2022-0 Yes [id number] 1{tbl} Take 1 K elsey Potassium-H 3-22 tablet by Sey bold CTZ 50-12.5 00:00: mouth - MG oral 00 daily Externa Tablet l Losartan 3-0 Yes [id number] 1{tbl} Take 1 K elsey Potassium-H 3-22 tablet by Sey bold CTZ 50-12.5 00:00: mouth - MG oral 00 daily Externa Tablet l Losartan 3-0 Yes [id number] 1{tbl} Take 1 K elsey Potassium-H 3-22 tablet by Sey bold CTZ 50-12.5 00:00: mouth - MG oral 00 daily Externa Tablet l Losartan 2022-0 Yes [id number] 1{tbl} Take 1 K elsey Potassium-H 3-22 tablet by Lit romano CTZ 50-12.5 00:00: mouth - MG oral 00 daily Externa Tablet l Propranolol 2022- No [id number] TAKE ONE Jelena HCl 10 MG 3-10 04-10 (1) Seybold oral Tablet 00:00: 00:00 TABLET(S) - 00 :00 BY MOUTH Externa THREE l TIMES A DAY. Cholecalcif 2022- No [id number] 03776X Take 1 Jelena juan 1.25 3-02 04-10 capsule Seybol d MG ([id number] 00:00: 00:00 (50,000 - UT) oral 00 :00 units Externa Capsule total) by l mouth twice a week for 8 doses Trazodone Yes [id number] 100mg Take 100 Jelena HCl 100 MG 2-28 mg by Seybold oral Tablet 09:11: mouth at - 07 bedtime Externa l Cyanocobala Yes Take by Reynold guevaraemmy min 2-28 mouth Seybold (VITAMIN B 09:11: - 12 OR) 07 Externa l hydroCHLORO Yes TAKE ONE Ke lsey thiazide 2-23 [...] A l DAY. hydrOXYzine 2023-0 Yes 50mg Q.[id number] Take 1 Jelena HCl 50 MG 2-13 [id number] tablet (50 Seybold oral Tablet 00:00: 3D mg total) - 00 by mouth Externa every 8 l hours as needed. hydrOXYzine 2023-0 Yes 50mg Q.[id number] Take 1 Jelena HCl 50 MG 2-13 [id number] tablet (50 Seybold oral Tablet 00:00: 3D mg total) - 00 by mouth Externa every 8 l hours as needed. hydrOXYzine 2023-0 Yes 50mg Q.[id number] Take 1 Jelena HCl 50 MG 2-13 [id number] tablet (50 Seybold oral Tablet 00:00: 3D mg total) - 00 by mouth Externa every 8 l hours as needed. hydrOXYzine 2023-0 Yes 50mg Q.[id number] Take 1 Jelena HCl 50 MG 2-13 [id number] tablet (50 Seybold oral Tablet 00:00: 3D mg total) - 00 by mouth Externa every 8 l hours as needed. hydrOXYzine 2023-0 Yes 50mg Q.[id number] Take 1 Jelena HCl 50 MG 2-13 [id number] tablet (50 Seybold oral Tablet 00:00: 3D mg total) - 00 by mouth Externa every 8 l hours as needed. hydrOXYzine 2023-0 Yes 50mg Q.[id number] Take 1 Jelena HCl 50 MG 2-13 [id number] tablet (50 Seybold oral Tablet 00:00: 3D mg total) - 00 by mouth Externa every 8 l hours as needed hydrOXYzine 2023-0 Yes 50mg Q.[id number] Take 1 Jelena HCl 50 MG 2-13 [id number] tablet (50 Seybold oral Tablet 00:00: 3D mg total) - 00 by mouth Externa every 8 l hours as needed hydrOXYzine 2023-0 Yes 50mg Q.[id number] Take 1 Jelena HCl 50 MG 2-13 [id number] tablet (50 Seybold oral Tablet 00:00: 3D mg total) - 00 by mouth Externa every 8 l hours as needed hydrOXYzine 2023-0 Yes 50mg Q.[id number] Take 1 Jelena HCl 50 MG 2-13 [id number] tablet (50 Seybold oral Tablet 00:00: 3D mg total) - 00 by mouth Externa every 8 l hours as needed hydrOXYzine 2023-0 Yes 50mg Q.[id number] Take 1 Jelena HCl 50 MG 2-13 [id number] tablet (50 Seybold oral Tablet 00:00: 3D mg total) - 00 by mouth Externa every 8 l hours as needed hydrOXYzine 2023-0 Yes 50mg Q.[id number] Take 1 Jelena HCl 50 MG 2-13 [id number] tablet (50 Seybold oral Tablet 00:00: 3D mg total) - 00 by mouth Externa every 8 l hours as needed. hydrOXYzine 2023-0 Yes 50mg Q.[id number] Take 1 Jelena HCl 50 MG 2-13 [id number] tablet (50 Seybold oral Tablet 00:00: 3D mg total) - 00 by mouth Externa every 8 l hours as needed. Losartan 2023-0 Yes [id number] 1{tbl} Take 1 K elsey Potassium-H 2-10 tablet by Sey bold CTZ 50-12.5 00:00: mouth - MG oral 00 daily Externa Tablet l Meclizine 2023-0 Yes [id number] 25mg Q.[id number] Take 1 Jelena HCl 25 MG 2-10 [id number] tablet (25 Seybold oral Tablet 00:00: 3D mg total) - 00 by mouth 3 Externa times l daily as needed Propranolol 2023-0 Yes [id number] 10mg Take 1 Jelena HCl 10 MG 2-10 tablet (10 Seyb old oral Tablet 00:00: mg total) - 00 by mouth 3 Externa times l daily Losartan 2023-0 Yes [id number] 1{tbl} Take 1 K elsey Potassium-H 2-10 tablet by Sey bold CTZ 50-12.5 00:00: mouth - MG oral 00 daily Externa Tablet l Meclizine 2023-0 Yes [id number] 25mg Q.[id number] Take 1 Jelena HCl 25 MG 2-10 [id number] tablet (25 Seybold oral Tablet 00:00: 3D mg total) - 00 by mouth 3 Externa times l daily as needed Propranolol Yes [id number] 10mg Take 1 Jelena HCl 10 MG 2-10 tablet (10 Seyb old oral Tablet 00:00: mg total) - 00 by mouth 3 Externa times l daily Doxycycline Yes [id number] 100mg Take 1 Jelena Hyclate 100 1-31 tablet Seybol d MG oral 00:00: (100 mg - Tablet 00 total) by Externa mouth 2 l times daily Doxycycline 2022- No [id number] 100mg Take 1 Jelena Hyclate 100 1-31 02-28 tablet Seybo ld MG oral 00:00: 00:00 (100 mg - Tablet 00 :00 total) by Externa mouth 2 l times daily Trulicity Yes [id number] .75mg Inject Jelena 0.75 1-28 0.75 mg Seybold MG/0.5ML 00:00: into the - subcutaneou 00 skin once Ext jonathan s Solution a week l Pen-injecto r Trulicity Yes [id number] .75mg Inject Jelena 0.75 1-28 0.75 mg Seybold MG/0.5ML 00:00: into the - subcutaneou 00 skin once Ext jonathan s Solution a week l Pen-injecto r Trulicity Yes [id number] .75mg Inject Jelena 0.75 1-28 0.75 mg Seybold MG/0.5ML 00:00: into the - subcutaneou 00 skin once Ext jonathan s Solution a week l Pen-injecto r Trulicity Yes [id number] .75mg Inject Jelena 0.75 1-28 0.75 mg Seybold MG/0.5ML 00:00: into the - subcutaneou 00 skin once Ext jonathan s Solution a week l Pen-injecto r Aripiprazol 2022- No Kelse y e 20 MG 1-25 01-25 Seybold oral Tablet 11:11: 00:00 - 39 :00 Externa l Aripiprazol 2022- No [id number] 10mg Take 10 mg Jelena e 10 MG 1-25 -25 by mouth 2 Seybo ld oral Tablet 11:11: 00:00 times - 26 :00 daily Externa l Trazodone 0 Yes [id number] 100mg Take 100 Jelena HCl 100 MG 1-25 mg by Seybold oral Tablet 10:31: mouth at - 22 bedtime Externa l Cyanocobala Yes Take by Reynold sey min 1-25 mouth Seybold (VITAMIN B 10:31: - 12 OR) 22 Externa l Trazodone Yes [id number] 100mg Take 100 Jelena HCl 100 MG 1-25 mg by Seybold oral Tablet 10:31: mouth at - 22 bedtime Externa l Cyanocobala Yes Take by Reynold sey min 1-25 mouth Seybold (VITAMIN B 10:31: - 12 OR) 22 Externa l hydroCHLORO Yes [id number] 12.5mg Take 1 Jelena thiazide 1-25 capsule Seybold 12.5 MG 00:00: (12.5 mg - oral 00 total) by Externa Capsule mouth l daily Ondansetron Yes [id number] 4mg Q.[id number] Take 1 Jelena (ZOFRAN) 4 1-25 [id number] tablet (4 Seybold MG oral 00:00: 3D mg total) - TABLET 00 by mouth Externa DISPERSIBLE every 8 l hours as needed for nausea Tirzepatide 0 Yes [id number] 2.5mg Inject 0.5 Ejlena (Mounjaro) 1-25 mL (2.5 mg Sey bold 2.5 00:00: total) - MG/0.5ML 00 into the Externa subcutaneou skin once l s Solution a week Pen-injecto r Celecoxib 2022-0 Yes [id number] 200mg Take 1 Jelena (CeleBREX) 1-25 capsule Seybol d 200 MG oral 00:00: (200 mg - Capsule 00 total) by Externa mouth 2 l times daily Gabapentin 2022-0 Yes [id number] 100mg Take 1 Jelena 100 MG oral 1-25 capsule Seybo ld Capsule 00:00: (100 mg - 00 total) by Externa mouth 3 l times daily Ondansetron 2022-0 Yes [id number] 4mg Q.[id number] Take 1 Jelena (ZOFRAN) 4 1-25 [id number] tablet (4 Seybold MG oral 00:00: 3D mg total) - TABLET 00 by mouth Externa DISPERSIBLE every 8 l hours as needed for nausea Ondansetron 2022-0 Yes [id number] 4mg Q.[id number] Take 1 Jelena (ZOFRAN) 4 1-25 [id number] tablet (4 Seybold MG oral 00:00: 3D mg total) - TABLET 00 by mouth Externa DISPERSIBLE every 8 l hours as needed for nausea Ondansetron 2022-0 Yes [id number] 4mg Q.[id number] Take 1 Jelena (ZOFRAN) 4 1-25 [id number] tablet (4 Seybold MG oral 00:00: 3D mg total) - TABLET 00 by mouth Externa DISPERSIBLE every 8 l hours as needed for nausea Ondansetron 2022-0 Yes [id number] 4mg Q.[id number] Take 1 Jelena (ZOFRAN) 4 1-25 [id number] tablet (4 Seybold MG oral 00:00: 3D mg total) - TABLET 00 by mouth Externa DISPERSIBLE every 8 l hours as needed for nausea Ondansetron 2022-0 Yes [id number] 4mg Q.[id number] Take 1 Jelena (ZOFRAN) 4 1-25 [id number] tablet (4 Seybold MG oral 00:00: 3D mg total) - TABLET 00 by mouth Externa DISPERSIBLE every 8 l hours as needed for nausea Celecoxib 2022-0 Yes [id number] 200mg Take 1 Jelena (CeleBREX) 1-25 capsule Seybol d 200 MG oral 00:00: (200 mg - Capsule 00 total) by Externa mouth 2 l times daily Gabapentin 2022-0 Yes [id number] 100mg Take 1 Jelena 100 MG oral 1-25 capsule Seybo ld Capsule 00:00: (100 mg - 00 total) by Externa mouth 3 l times daily Ondansetron 2022-0 Yes [id number] 4mg Q.[id number] Take 1 Jelena (ZOFRAN) 4 1-25 [id number] tablet (4 Seybold MG oral 00:00: 3D mg total) - TABLET 00 by mouth Externa DISPERSIBLE every 8 l hours as needed for nausea Celecoxib 2022-0 Yes [id number] 200mg Take 1 Jelena (CeleBREX) 1-25 capsule Seybol d 200 MG oral 00:00: (200 mg - Capsule 00 total) by Externa mouth 2 l times daily Gabapentin 2022-0 Yes [id number] 100mg Take 1 Jelena 100 MG oral 1-25 capsule Seybo ld Capsule 00:00: (100 mg - 00 total) by Externa mouth 3 l times daily Ondansetron 2022-0 Yes [id number] 4mg Q.[id number] Take 1 Jelena (ZOFRAN) 4 1-25 [id number] tablet (4 Sey[facility] MG oral 00:00: 3D mg total) - TABLET 00 by mouth Externa DISPERSIBLE every 8 l hours as needed for nausea Gabapentin 2022-0 Yes [id number] 100mg Take 1 Jelena 100 MG oral 1-25 capsule Seybo ld Capsule 00:00: (100 mg - 00 total) by Externa mouth 3 l times daily Ondansetron 2022-0 Yes [id number] 4mg Q.[id number] Take 1 Jelena (ZOFRAN) 4 1-25 [id number] tablet (4 [facility] MG oral 00:00: 3D mg total) - TABLET 00 by mouth Externa DISPERSIBLE every 8 l hours as needed for nausea Gabapentin 2022-0 Yes [id number] 100mg Take 1 Jelena 100 MG oral 1-25 capsule Sey[facility] ld Capsule 00:00: (100 mg - 00 total) by Externa mouth 3 l times daily Ondansetron 2022-0 Yes [id number] 4mg Q.[id number] Take 1 Jelena (ZOFRAN) 4 1-25 [id number] tablet (4 [facility] MG oral 00:00: 3D mg total) - TABLET 00 by mouth Externa DISPERSIBLE every 8 l hours as needed for nausea Ondansetron 3-0 Yes [id number] 4mg Q.[id number] Take 1 Jelena (ZOFRAN) 4 1-25 [id number] tablet (4 [facility] MG oral 00:00: 3D mg total) - TABLET 00 by mouth Externa DISPERSIBLE every 8 l hours as needed for nausea Ondansetron 2023-0 Yes [id number] 4mg Q.[id number] Take 1 Jelena (ZOFRAN) 4 1-25 [id number] tablet (4 [facility] MG oral 00:00: 3D mg total) - TABLET 00 by mouth Externa DISPERSIBLE every 8 l hours as needed for nausea Ondansetron 2023-0 Yes [id number] 4mg Q.[id number] Take 1 Jelena (ZOFRAN) 4 1-25 [id number] tablet (4 [facility] MG oral 00:00: 3D mg total) - TABLET 00 by mouth Externa DISPERSIBLE every 8 l hours as needed for nausea Ondansetron 2023-0 Yes [id number] 4mg Q.[id number] Take 1 Jelena (ZOFRAN) 4 1-25 [id number] tablet (4 [facility] MG oral 00:00: 3D mg total) - TABLET 00 by mouth Externa DISPERSIBLE every 8 l hours as needed for nausea Ondansetron 3-0 Yes [id number] 4mg Q.[id number] Take 1 Jelena (ZOFRAN) 4 1-25 [id number] tablet (4 [facility] MG oral 00:00: 3D mg total) - TABLET 00 by mouth Externa DISPERSIBLE every 8 l hours as needed for nausea Ondansetron 2023-0 Yes [id number] 4mg Q.[id number] Take 1 Jelena (ZOFRAN) 4 1-25 [id number] tablet (4 [facility] MG oral 00:00: 3D mg total) - TABLET 00 by mouth Externa DISPERSIBLE every 8 l hours as needed for nausea Ondansetron 2023-0 Yes [id number] 4mg Q.[id number] Take 1 Jelena (ZOFRAN) 4 1-25 [id number] tablet (4 [facility] MG oral 00:00: 3D mg total) - TABLET 00 by mouth Externa DISPERSIBLE every 8 l hours as needed for nausea hydroCHLORO 2023-0 3- No [id number] 12.5mg Take 1 Jelena thiazide 1-25 02-10 [...] - s Implant 00 Externa l Nexplanon Yes Jelena 68 MG 1-23 Seybold subcutaneou 00:00: - s Implant 00 Externa l Nexplanon 0 Yes Jelena 68 MG 1-23 Seybold subcutaneou 00:00: - s Implant 00 Externa l Docusate Yes [id number] 100mg Take 1 Ke lsey Sodium 1-13 capsule Seybold (Colace) 00:00: (100 mg - 100 MG oral 00 total) by Ext jonathan Capsule mouth l daily Docusate Yes [id number] 100mg Take 1 Ke lsey Sodium 1-13 capsule [facility] (Colace) 00:00: (100 mg - 100 MG oral 00 total) by Ext jonathan Capsule mouth l daily Docusate Yes [id number] 100mg Take 1 Ke lsey Sodium 1-13 capsule [facility] (Colace) 00:00: (100 mg - 100 MG oral 00 total) by Ext jonathan Capsule mouth l daily Docusate Yes [id number] 100mg Take 1 Ke lsey Sodium 1-13 capsule [facility] (Colace) 00:00: (100 mg - 100 MG oral 00 total) by Ext jonathan Capsule mouth l daily Docusate Yes [id number] 100mg Take 1 [facility] Sodium 1-13 capsule [facility] (Colace) 00:00: (100 mg - 100 MG oral 00 total) by Ext jonathan Capsule mouth l daily Ferrous 0 Yes [id number] 325mg Take 1 Reynold sey Sulfate 1-13 tablet Seybold (Iron) 325 00:00: (325 mg - (65 Fe) MG 00 total) by Exte rna oral Tablet mouth l daily (with breakfast) Docusate Yes [id number] 100mg Take 1 Ke lsey Sodium 1-13 capsule [facility] (Colace) 00:00: (100 mg - 100 MG oral 00 total) by Ext jonathan Capsule mouth l daily Ferrous 0 Yes [id number] 325mg Take 1 Reynold sey Sulfate 1-13 tablet Sey[facility] (Iron) 325 00:00: (325 mg - (65 Fe) MG 00 total) by Exte rna oral Tablet mouth l daily (with breakfast) Docusate 0 Yes [id number] 100mg Take 1 Ke lsey Sodium 1-13 capsule [facility] (Colace) 00:00: (100 mg - 100 MG oral 00 total) by Ext jonathan Capsule mouth l daily Ferrous 0 Yes [id number] 325mg Take 1 Reynold sey Sulfate 1-13 tablet [facility] (Iron) 325 00:00: (325 mg - (65 Fe) MG 00 total) by Exte rna oral Tablet mouth l daily (with breakfast) Docusate 0 Yes [id number] 100mg Take 1 Ke lsey Sodium 1-13 capsule [facility] (Colace) 00:00: (100 mg - 100 MG oral 00 total) by Ext jonathan Capsule mouth l daily Ferrous Yes [id number] 325mg Take 1 Reynold sey Sulfate 1-13 tablet [facility] (Iron) 325 00:00: (325 mg - (65 Fe) MG 00 total) by Exte rna oral Tablet mouth l daily (with breakfast) Docusate 0 Yes [id number] 100mg Take 1 Ke lsey Sodium 1-13 capsule [facility] (Colace) 00:00: (100 mg - 100 MG oral 00 total) by Ext jonathan Capsule mouth l daily Ferrous 2022-0 Yes [id number] 325mg Take 1 Reynold sey Sulfate 1-13 tablet [facility] (Iron) 325 00:00: (325 mg - (65 Fe) MG 00 total) by Exte rna oral Tablet mouth l daily (with breakfast) Docusate 0 Yes [id number] 100mg Take 1 Ke lsey Sodium 1-13 capsule [facility] (Colace) 00:00: (100 mg - 100 MG oral 00 total) by Ext jonathan Capsule mouth l daily Ferrous 2022-0 Yes [id number] 325mg Take 1 Reynold sey Sulfate 1-13 tablet [facility] (Iron) 325 00:00: (325 mg - (65 Fe) MG 00 total) by Exte rna oral Tablet mouth l daily (with breakfast) Docusate 0 Yes [id number] 100mg Take 1 Ke lsey Sodium 1-13 capsule [facility] (Colace) 00:00: (100 mg - 100 MG oral 00 total) by Ext jonathan Capsule mouth l daily Ferrous Yes [id number] 325mg Take 1 Reynold sey Sulfate 1-13 tablet [facility] (Iron) 325 00:00: (325 mg - (65 Fe) MG 00 total) by Exte rna oral Tablet mouth l daily (with breakfast) Docusate Yes [id number] 100mg Take 1 Ke lsey Sodium 1-13 capsule [facility] (Colace) 00:00: (100 mg - 100 MG oral 00 total) by Ext jonathan Capsule mouth l daily Ferrous Yes [id number] 325mg Take 1 Reynold sey Sulfate 1-13 tablet [facility] (Iron) 325 00:00: (325 mg - (65 Fe) MG 00 total) by Exte rna oral Tablet mouth l daily (with breakfast) Docusate Yes [id number] 100mg Take 1 Ke lsey Sodium 1-13 capsule [facility] (Colace) 00:00: (100 mg - 100 MG oral 00 total) by Ext jonathan Capsule mouth l daily Ferrous Yes [id number] 325mg Take 1 Reynold sey Sulfate 1-13 tablet [facility] (Iron) 325 00:00: (325 mg - (65 Fe) MG 00 total) by Exte rna oral Tablet mouth l daily (with breakfast) Docusate Yes [id number] 100mg Take 1 Ke lsey Sodium 1-13 capsule [facility] (Colace) 00:00: (100 mg - 100 MG oral 00 total) by Ext jonathan Capsule mouth l daily Docusate 0 Yes [id number] 100mg Take 1 Ke [facility] Sodium 1-13 capsule [facility] (Colace) 00:00: (100 mg - 100 MG oral 00 total) by Ext jonathan Capsule mouth l daily Docusate Yes [id number] 100mg Take 1 Ke [facility] Sodium 1-13 capsule [facility] (Colace) 00:00: (100 mg - 100 MG oral 00 total) by Ext jonathan Capsule mouth l daily Ferrous Yes [id number] 325mg Take 1 Reynold sey Sulfate 1-13 tablet [facility] (Iron) 325 00:00: (325 mg - (65 Fe) MG 00 total) by Exte rna oral Tablet mouth l daily (with breakfast) Docusate Yes [id number] 100mg Take 1 Ke lsey Sodium 1-13 capsule [facility] (Colace) 00:00: (100 mg - 100 MG oral 00 total) by Ext jonathan Capsule mouth l daily Nitrofurant 0 2022- No [id number] 100mg Take 1 Jelena oin Monohyd 1-13 [...] 1-11 00:00: 00 LYRICA 150 2019- Yes [id number] Take 1 [facility] mg capsule 2-21 capsule by ity of 00:00: mouth [place] 00 twice a Medical day for Branch neuropathi c pain as directed by physician. LYRICA 150 2019-08 Yes [id number] Take 1 [facility] mg capsule 2-21 capsule by ity of 00:00: mouth [place] 00 twice a Medical day for Branch neuropathi c pain as directed by physician. LYRICA 150 2019-08 Yes [id number] Take 1 [facility] mg capsule 2-21 capsule by ity of 00:00: mouth [place] 00 twice a Medical day for Branch neuropathi c pain as directed by physician. LYRICA 150 2019-08 Yes [id number] Take 1 [facility] mg capsule 2-21 capsule by ity of 00:00: mouth [place] 00 twice a Medical day for Branch neuropathi c pain as directed by physician. LYRICA 150 2019-08 Yes [id number] Take 1 [facility] mg capsule 2-21 capsule by ity of 00:00: mouth [place] 00 twice a Medical day for Branch neuropathi c pain as directed by physician. LYRICA 150 2019-08 Yes [id number] Take 1 [facility] mg capsule 2-21 capsule by ity of 00:00: mouth [place] 00 twice a Medical day for Branch neuropathi c pain as directed by physician. LYRICA 150 2019-08 Yes [id number] Take 1 [facility] mg capsule 2-21 capsule by ity of 00:00: mouth [place] 00 twice a Medical day for Branch neuropathi c pain as directed by physician. LYRICA 150 2019-08 Yes [id number] Take 1 [facility] mg capsule 2-21 capsule by ity of 00:00: mouth [place] 00 twice a Medical day for Branch neuropathi c pain as directed by physician. DULOXETINE 0 2020- No 60mg Take 60 [...] 5mg Take 5 mg [facility] e (ABILIFY 917 -17 by mouth 2 it y of ORAL) 16:16: 00:00 (two) [place] 00 :00 times Medical daily. Branch ofloxacin 2020-0 Yes [id number] 5[drp] Place 5 [facility] 0.3 % otic 9-17 [id number] Drops in ity of drops 00:00: both ears [place] 00 3 (three) Medical times Branch daily. ofloxacin 2020-0 Yes [id number] 5[drp] Place 5 [facility] 0.3 % otic 9-17 [id number] Drops in ity of drops 00:00: both ears [place] 00 3 (three) Medical times Branch daily. ofloxacin 2020-0 Yes [id number] 5[drp] Place 5 [facility] 0.3 % otic 9-17 [id number] Drops in ity of drops 00:00: both ears [place] 00 3 (three) Medical times Branch daily. ofloxacin 2020-0 Yes [id number] 5[drp] Place 5 [facility] 0.3 % otic 9-17 [id number] Drops in ity of drops 00:00: both ears [place] 00 3 (three) Medical times Branch daily. ofloxacin 2020-0 Yes [id number] 5[drp] Place 5 [facility] 0.3 % otic 9-17 [id number] Drops in ity of drops 00:00: both ears [place] 00 3 (three) Medical times Branch daily. ofloxacin 2020-0 Yes [id number] 5[drp] Place 5 [facility] 0.3 % otic 9-17 [id number] Drops in ity of drops 00:00: both ears [place] 00 3 (three) Medical times Branch daily. ofloxacin 2020-0 Yes [id number] 5[drp] Place 5 [facility] 0.3 % otic 9-17 [id number] Drops in ity of drops 00:00: both ears [place] 00 3 (three) Medical times Branch daily. ofloxacin 2020-0 Yes [id number] 5[drp] Place 5 [facility] 0.3 % otic 9-17 [id number] Drops in ity of drops 00:00: both ears [place] 00 3 (three) Medical times Branch daily. ofloxacin 2020-0 Yes [id number] 5[drp] Place 5 [facility] 0.3 % otic 9-17 [id number] Drops in ity of drops 00:00: both ears [place] 00 3 (three) Medical times Branch daily. ofloxacin 2020-0 Yes [id number] 5[drp] Place 5 [facility] 0.3 % otic 9-17 [id number] Drops in ity of drops 00:00: both ears [place] 00 3 (three) Medical times Branch daily. ofloxacin 2020-0 Yes [id number] 5[drp] Place 5 [facility] 0.3 % otic 9-17 [id number] Drops in ity of drops 00:00: both ears [place] 00 3 (three) Medical times Branch daily. ofloxacin 2020-0 Yes [id number] 5[drp] Place 5 [facility] 0.3 % otic 9-17 [id number] Drops in ity of drops 00:00: both ears [place] 00 3 (three) Medical times Branch daily. ofloxacin 2020-0 Yes [id number] 5[drp] Place 5 [facility] 0.3 % otic 9-17 [id number] Drops in ity of drops 00:00: both ears [place] 00 3 (three) Medical times Branch daily. ofloxacin 2020-0 Yes [id number] 5[drp] Place 5 [facility] 0.3 % otic 9-17 [id number] Drops in ity of drops 00:00: both ears [place] 00 3 (three) Medical times Branch daily. ofloxacin 2020-0 Yes [id number] 5[drp] Place 5 [facility] 0.3 % otic 9-17 [id number] Drops in ity of drops 00:00: both ears [place] 00 3 (three) Medical times Branch daily. ofloxacin 2020-0 Yes [id number] 5[drp] Place 5 [facility] 0.3 % otic 9-17 [id number] Drops in ity of drops 00:00: both [...] days. Indication s: acute pain metoprolol Yes [id number] 50mg Take 1 Un nneka succinate 03-08 tablet by ity o f XL 50 mg 24 00:00: mouth [place] hr tablet 00 daily. Medical Branch hydroCHLORO Yes [id number] 25mg Take 1 [facility] thiazide 25 03-08 tablet by ity of mg tablet 00:00: mouth [place] 00 daily. Medical Branch baclofen 10 Yes [id number] 10mg Take 1 [facility] mg tablet 03-08 [id number] tablet by ity of 00:00: mouth 3 [place] 00 (three) Medical times Branch daily as needed for Pain (scale 4-6). metoprolol Yes [id number] 50mg Take 1 Un nneka succinate 03-08 tablet by ity o f XL 50 mg 24 00:00: mouth [place] hr tablet 00 daily. Medical Branch hydroCHLORO 2020-0 Yes [id number] 25mg Take 1 [facility] thiazide 25 7-09 tablet by ity of mg tablet 00:00: mouth [place] 00 daily. Medical Branch baclofen 10 2020-0 Yes [id number] 10mg Take 1 [facility] mg tablet 7- [id number] tablet by ity of 00:00: mouth 3 [place] 00 (three) Medical times Branch daily as needed for Pain (scale 4-6). metoprolol 2020-0 Yes [id number] 50mg Take 1 Un nneka succinate 7-09 tablet by ity o f XL 50 mg 24 00:00: mouth [place] hr tablet 00 daily. Medical Branch hydroCHLORO 2020-0 Yes [id number] 25mg Take 1 [facility] thiazide 25 7-09 tablet by ity of mg tablet 00:00: mouth [place] 00 daily. Medical Branch baclofen 10 2019-0 Yes [id number] 10mg Take 1 [facility] mg tablet 03-08 [id number] tablet by ity of 00:00: mouth 3 [place] 00 (three) Medical times Branch daily as needed for Pain (scale 4-6). metoprolol 2020-0 Yes [id number] 50mg Take 1 Un nneka succinate 7-09 tablet by ity o f XL 50 mg 24 00:00: mouth [place] hr tablet 00 daily. Medical Branch hydroCHLORO 2020-0 Yes [id number] 25mg Take 1 [facility] thiazide 25 7-09 tablet by ity of mg tablet 00:00: mouth [place] 00 daily. Medical Branch baclofen 10 2019-0 Yes [id number] 10mg Take 1 [facility] mg tablet 03-08 [id number] tablet by ity of 00:00: mouth 3 [place] 00 (three) Medical times Branch daily as needed for Pain (scale 4-6). metoprolol 2020-0 Yes [id number] 50mg Take 1 Un nneka succinate 7-09 tablet by ity o f XL 50 mg 24 00:00: mouth [place] hr tablet 00 daily. Medical Branch hydroCHLORO 2020-0 Yes [id number] 25mg Take 1 [facility] thiazide 25 7-09 tablet by ity of mg tablet 00:00: mouth [place] 00 daily. Medical Branch baclofen 10 2020-0 Yes [id number] 10mg Take 1 [facility] mg tablet 7- [id number] tablet by ity of 00:00: mouth 3 [place] 00 (three) Medical times Branch daily as needed for Pain (scale 4-6). metoprolol 2020-0 Yes [id number] 50mg Take 1 Un nneka succinate 7-09 tablet by ity o f XL 50 mg 24 00:00: mouth [place] hr tablet 00 daily. Medical Branch hydroCHLORO 2020-0 Yes [id number] 25mg Take 1 [facility] thiazide 25 7-09 tablet by ity of mg tablet 00:00: mouth [place] 00 daily. Medical Branch baclofen 10 2020-0 Yes [id number] 10mg Take 1 [facility] mg tablet 7 [id number] tablet by ity of 00:00: mouth 3 [place] 00 (three) Medical times Branch daily as needed for Pain (scale 4-6). metoprolol 2020-0 Yes [id number] 50mg Take 1 Un nneka succinate 7-09 tablet by ity o f XL 50 mg 24 00:00: mouth [place] hr tablet 00 daily. Medical Branch hydroCHLORO 2020-0 Yes [id number] 25mg Take 1 [facility] thiazide 25 7-09 tablet by ity of mg tablet 00:00: mouth [place] 00 daily. Medical Branch baclofen 10 2019-0 Yes [id number] 10mg Take 1 [facility] mg tablet 03-08 [id number] tablet by ity of 00:00: mouth 3 [place] 00 (three) Medical times Branch daily as needed for Pain (scale 4-6). metoprolol 2020-0 Yes [id number] 50mg Take 1 Un nneka succinate 7-09 tablet by ity o f XL 50 mg 24 00:00: mouth [place] hr tablet 00 daily. Medical Branch hydroCHLORO 2020-0 Yes [id number] 25mg Take 1 [facility] thiazide 25 7-09 tablet by ity of mg tablet 00:00: mouth [place] 00 daily. Medical Branch baclofen 10 2019-0 Yes [id number] 10mg Take 1 [facility] mg tablet 7 [id number] tablet by ity of 00:00: mouth 3 [place] 00 (three) Medical times Branch daily as needed for Pain (scale 4-6). metoprolol 2020-0 Yes [id number] 50mg Take 1 Un nneka succinate 7-09 tablet by ity o f XL 50 mg 24 00:00: mouth [place] hr tablet 00 daily. Medical Branch hydroCHLORO 2020-0 Yes [id number] 25mg Take 1 [facility] thiazide 25 7-09 tablet by ity of mg tablet 00:00: mouth [place] 00 daily. Medical Branch baclofen 10 2020-0 Yes [id number] 10mg Take 1 [facility] mg tablet 7 [id number] tablet by ity of 00:00: mouth 3 [place] 00 (three) Medical times Branch daily as needed for Pain (scale 4-6). metoprolol 2020-0 Yes [id number] 50mg Take 1 Un nneka succinate 7-09 tablet by ity o f XL 50 mg 24 00:00: mouth [place] hr tablet 00 daily. Medical Branch hydroCHLORO 2020-0 Yes [id number] 25mg Take 1 [facility] thiazide 25 7-09 tablet by ity of mg tablet 00:00: mouth [place] 00 daily. Medical Branch baclofen 10 2020-0 Yes [id number] 10mg Take 1 [facility] mg tablet 03-08 [id number] tablet by ity of 00:00: mouth 3 [place] 00 (three) Medical times Branch daily as needed for Pain (scale 4-6). metoprolol 2020-0 Yes [id number] 50mg Take 1 Un nneka succinate 7-09 tablet by ity o f XL 50 mg 24 00:00: mouth [place] hr tablet 00 daily. Medical Branch hydroCHLORO 2020-0 Yes [id number] 25mg Take 1 [facility] thiazide 25 7-09 tablet by ity of mg tablet 00:00: mouth [place] 00 daily. Medical Branch baclofen 10 2020-0 Yes [id number] 10mg Take 1 [facility] mg tablet 03-08 [id number] tablet by ity of 00:00: mouth 3 [place] 00 (three) Medical times Branch daily as needed for Pain (scale 4-6). metoprolol 2020-0 Yes [id number] 50mg Take 1 Un nneka succinate 7-09 tablet by ity o f XL 50 mg 24 00:00: mouth [place] hr tablet 00 daily. Medical Branch hydroCHLORO 2020-0 Yes [id number] 25mg Take 1 [facility] thiazide 25 7-09 tablet by ity of mg tablet 00:00: mouth [place] 00 daily. Medical Branch baclofen 10 2020-0 Yes [id number] 10mg Take 1 [facility] mg tablet 03-08 [id number] tablet by ity of 00:00: mouth 3 [place] 00 (three) Medical times Branch daily as needed for Pain (scale 4-6). metoprolol 2020-0 Yes [id number] 50mg Take 1 Un nneka succinate 7-09 tablet by ity o f XL 50 mg 24 00:00: mouth [place] hr tablet 00 daily. Medical Branch hydroCHLORO 2020-0 Yes [id number] 25mg Take 1 [facility] thiazide 25 7-09 tablet by ity of mg tablet 00:00: mouth [place] 00 daily. Medical Branch baclofen 10 2020-0 Yes [id number] 10mg Take 1 [facility] mg tablet 7- [id number] tablet by ity of 00:00: mouth 3 [place] 00 (three) Medical times Branch daily as needed for Pain (scale 4-6). metoprolol 2020-0 Yes [id number] 50mg Take 1 Un nneka succinate 7-09 tablet by ity o f XL 50 mg 24 00:00: mouth [place] hr tablet 00 daily. Medical Branch hydroCHLORO 2020-0 Yes [id number] 25mg Take 1 [facility] thiazide 25 7-09 tablet by ity of mg tablet 00:00: mouth [place] 00 daily. Medical Branch baclofen 10 2019-0 Yes [id number] 10mg Take 1 [facility] mg tablet 03-08 [id number] tablet by ity of 00:00: mouth 3 [place] 00 (three) Medical times Branch daily as needed for Pain (scale 4-6). metoprolol 2020-0 Yes [id number] 50mg Take 1 Un nneka succinate 7-09 tablet by ity o f XL 50 mg 24 00:00: mouth [place] hr tablet 00 daily. Medical Branch hydroCHLORO 2020-0 Yes [id number] 25mg Take 1 [facility] thiazide 25 7-09 tablet by ity of mg tablet 00:00: mouth [place] 00 daily. Medical Branch baclofen 10 2019-0 Yes [id number] 10mg Take 1 [facility] mg tablet 03-08 [id number] tablet by ity of 00:00: mouth 3 [place] 00 (three) Medical times Branch daily as needed for Pain (scale 4-6). metoprolol 2020-0 Yes [id number] 50mg Take 1 Un nneka succinate 7-09 tablet by ity o f XL 50 mg 24 00:00: mouth [place] hr tablet 00 daily. Medical Branch hydroCHLORO 2020-0 Yes [id number] 25mg Take 1 [facility] thiazide 25 7-09 tablet by ity of mg tablet 00:00: mouth [place] 00 daily. Medical Branch baclofen 10 2020-0 Yes [id number] 10mg Take 1 [facility] mg tablet 03-08 [id number] tablet by ity of 00:00: mouth 3 [place] 00 (three) Medical times Branch daily as needed for Pain (scale 4-6). metoprolol 2020-0 Yes [id number] 50mg Take 1 Un nneka succinate 7-09 tablet by ity o f XL 50 mg 24 00:00: mouth [place] hr tablet 00 daily. Medical Branch hydroCHLORO 2020-0 Yes [id number] 25mg Take 1 [facility] thiazide 25 7-09 tablet by ity of mg tablet 00:00: mouth [place] 00 daily. Medical Branch baclofen 10 2020-0 Yes [id number] 10mg Take 1 [facility] mg tablet 7- [id number] tablet by ity of 00:00: mouth 3 [place] 00 (three) Medical times Branch daily as needed for Pain (scale 4-6). metoprolol 2020-0 Yes [id number] 50mg Take 1 Un nneka succinate 7-09 tablet by ity o f XL 50 mg 24 00:00: mouth [place] hr tablet 00 daily. Medical Branch hydroCHLORO 2020-0 Yes [id number] 25mg Take 1 [facility] thiazide 25 7-09 tablet by ity of mg tablet 00:00: mouth [place] 00 daily. Medical Branch baclofen 10 2020-0 Yes [id number] 10mg Take 1 [facility] mg tablet 03-08 [id number] tablet by ity of 00:00: mouth 3 [place] 00 (three) Medical times Branch daily as needed for Pain (scale 4-6). metoprolol 2020-0 Yes [id number] 50mg Take 1 Un nneka succinate 7-09 tablet by ity o f XL 50 mg 24 00:00: mouth [place] hr tablet 00 daily. Medical Branch hydroCHLORO 2020-0 Yes [id number] 25mg Take 1 [facility] thiazide 25 7-09 tablet by ity of mg tablet 00:00: mouth [place] 00 daily. Medical Branch baclofen 10 2020-0 Yes [id number] 10mg Take 1 [facility] mg tablet 7- [id number] tablet by ity of 00:00: mouth 3 [place] 00 (three) Medical times Branch daily as needed for Pain (scale 4-6). metoprolol 2020-0 Yes [id number] 50mg Take 1 Un nneka succinate 7-09 tablet by ity o f XL 50 mg 24 00:00: mouth [place] hr tablet 00 daily. Medical Branch hydroCHLORO 2020-0 Yes [id number] 25mg Take 1 [facility] thiazide 25 7-09 tablet by ity of mg tablet 00:00: mouth [place] 00 daily. Medical Branch baclofen 10 2020-0 Yes [id number] 10mg Take 1 [facility] mg tablet 03-08 [id number] tablet by ity of 00:00: mouth 3 [place] 00 (three) Medical times Branch daily as needed for Pain (scale 4-6). metoprolol 2020-0 Yes [id number] 50mg Take 1 Un nneka succinate 7-09 tablet by ity o f XL 50 mg 24 00:00: mouth [place] hr tablet 00 daily. Medical Branch hydroCHLORO 2020-0 Yes [id number] 25mg Take 1 [facility] thiazide 25 7-09 tablet by ity of mg tablet 00:00: mouth [place] 00 daily. Medical Branch baclofen 10 2020-0 Yes [id number] 10mg Take 1 [facility] mg tablet 03-08 [id number] tablet by ity of 00:00: mouth 3 [place] 00 (three) Medical times Branch daily as needed for Pain (scale 4-6). metoprolol 2020-0 Yes [id number] 50mg Take 1 Un nneak succinate 7-09 tablet by ity o f XL 50 mg 24 00:00: mouth [place] hr tablet 00 daily. Medical Branch hydroCHLORO 2020-0 Yes [id number] 25mg Take 1 [facility] thiazide 25 7-09 tablet by ity of mg tablet 00:00: mouth [place] 00 daily. Medical Branch baclofen 10 2020-0 Yes [id number] 10mg Take 1 [facility] mg tablet 03-08 [id number] tablet by ity of 00:00: mouth 3 [place] 00 (three) Medical times Branch daily as needed for Pain (scale 4-6). metoprolol 2020-0 Yes [id number] 50mg Take 1 Un nneka succinate 7-09 tablet by ity o f XL 50 mg 24 00:00: mouth [place] hr tablet 00 daily. Medical Branch hydroCHLORO 2020-0 Yes [id number] 25mg Take 1 [facility] thiazide 25 7-09 tablet by ity of mg tablet 00:00: mouth [place] 00 daily. Medical Branch baclofen 10 2020-0 Yes [id number] 10mg Take 1 [facility] mg tablet 03-08 [id number] tablet by ity of 00:00: mouth 3 [place] 00 (three) Medical times Branch daily as needed for Pain (scale 4-6). metoprolol 2020-0 Yes [id number] 50mg Take 1 Un nneka succinate 7-09 tablet by ity o f XL 50 mg 24 00:00: mouth [place] hr tablet 00 daily. Medical Branch hydroCHLORO 2020-0 Yes [id number] 25mg Take 1 [facility] thiazide 25 7-09 tablet by ity of mg tablet 00:00: mouth [place] 00 daily. Medical Branch baclofen 10 2020-0 Yes [id number] 10mg Take 1 [facility] mg tablet 7- [id number] tablet by ity of 00:00: mouth 3 [place] 00 (three) Medical times Branch daily as needed for Pain (scale 4-6). metoprolol 2020-0 Yes [id number] 50mg Take 1 Un nneka succinate 7-09 tablet by ity o f XL 50 mg 24 00:00: mouth [place] hr tablet 00 daily. Medical Branch hydroCHLORO 2020-0 Yes [id number] 25mg Take 1 [facility] thiazide 25 7-09 tablet by ity of mg tablet 00:00: mouth [place] 00 daily. Medical Branch baclofen 10 2020-0 Yes [id number] 10mg Take 1 [facility] mg tablet 7 [id number] tablet by ity of 00:00: mouth 3 [place] 00 (three) Medical times Branch daily as needed for Pain (scale 4-6). metoprolol 2020-0 Yes [id number] 50mg Take 1 Un nneka succinate 7-09 tablet by ity o f XL 50 mg 24 00:00: mouth [place] hr tablet 00 daily. Medical Branch hydroCHLORO 2020-0 Yes [id number] 25mg Take 1 [facility] thiazide 25 7-09 tablet by ity of mg tablet 00:00: mouth [place] 00 daily. Medical Branch baclofen 10 2020-0 Yes [id number] 10mg Take 1 [facility] mg tablet 03-08 [id number] tablet by ity of 00:00: mouth 3 [...] 2-25 by mouth ity of 14:58: daily. [place] [address] Medical Branch DULOXETINE 2020-0 Yes 60mg Take 60 mg [facility] HCL 2-25 by mouth 3 ity of (CYMBALTA 14:58: (three) [place] ORAL) 32 times Medical daily. Branch VITAMIN B 2020-0 Yes Take by Unive rs COMPLEX 2-25 mouth. ity of ORAL 14:58: [place] [address] [facility] traZODONE 2020-0 Yes 100mg Take 100 Uni vers 100 mg 2-25 mg by ity of tablet 14:58: mouth at [place] [address] bedtime. Medical Branch benztropine 2020-0 Yes 1mg Take 1 mg U nivers 1 mg tablet 2-25 by mouth ity of 14:58: daily. [place] [address] [facility] DULOXETINE 2020-0 Yes 60mg Take 60 mg U nivers HCL 2-25 by mouth 3 ity of (CYMBALTA 14:58: (three) [place] ORAL) 32 times Medical daily. Branch VITAMIN B 2020-0 Yes Take by Unive rs COMPLEX 2-25 mouth. ity of ORAL 14:58: [place] [address] [facility] traZODONE 2020-0 Yes 100mg Take 100 Uni vers 100 mg 2-25 mg by ity of tablet 14:58: mouth at [place] [address] bedtime. Medical Branch benztropine 2020-0 Yes 1mg Take 1 mg U nivers 1 mg tablet 2-25 by mouth ity of 14:58: daily. [place] [address] [facility] DULOXETINE 2020-0 Yes 60mg Take 60 mg U nivers HCL 2-25 by mouth 3 ity of (CYMBALTA 14:58: (three) [place] ORAL) 32 times Medical daily. Branch VITAMIN B 2020-0 Yes Take by Unive rs COMPLEX 2-25 mouth. ity of ORAL 14:58: [place] [address] [facility] traZODONE 2020-0 Yes 100mg Take 100 Uni vers 100 mg 2-25 mg by ity of tablet 14:58: mouth at [place] [address] bedtime. Medical Branch benztropine 2020-0 Yes 1mg Take 1 mg U nivers 1 mg tablet 2-25 by mouth ity of 14:58: daily. [place] [address] [facility] DULOXETINE 2020-0 Yes 60mg Take 60 mg U nivers HCL 2-25 by mouth 3 ity of (CYMBALTA 14:58: (three) [place] ORAL) 32 times Medical daily. Branch VITAMIN B 2020-0 Yes Take by Unive rs COMPLEX 2-25 mouth. ity of ORAL 14:58: [place] [address] [facility] traZODONE 2020-0 Yes 100mg Take 100 Uni vers 100 mg 2-25 mg by ity of tablet 14:58: mouth at [place] [address] bedtime. Medical Branch benztropine 2020-0 Yes 1mg Take 1 mg U nivers 1 mg tablet 2-25 by mouth ity of 14:58: daily. [place] [address] [facility] DULOXETINE 2020-0 Yes 60mg Take 60 mg U nivers HCL 2-25 by mouth 3 ity of (CYMBALTA 14:58: (three) [place] ORAL) 32 times Medical daily. Branch VITAMIN B 2020-0 Yes Take by Unive rs COMPLEX 2-25 mouth. ity of ORAL 14:58: [place] [address] [facility] traZODONE 2020-0 Yes 100mg Take 100 Uni vers 100 mg 2-25 mg by ity of tablet 14:58: mouth at [place] [address] bedtime. Medical Branch benztropine 2020-0 Yes 1mg Take 1 mg U nivers 1 mg tablet 2-25 by mouth ity of 14:58: daily. [place] [address] [facility] DULOXETINE 2020-0 Yes 60mg Take 60 mg U nivers HCL 2-25 by mouth 3 ity of (CYMBALTA 14:58: (three) [place] ORAL) 32 times Medical daily. Branch VITAMIN B 2020-0 Yes Take by Unive rs COMPLEX 2-25 mouth. ity of ORAL 14:58: [place] [address] [facility] traZODONE 2020-0 Yes 100mg Take 100 Uni vers 100 mg 2-25 mg by ity of tablet 14:58: mouth at [place] [address] bedtime. Medical Branch benztropine 2020-0 Yes 1mg Take 1 mg U nivers 1 mg tablet 2-25 by mouth ity of 14:58: daily. [place] [address] [facility] DULOXETINE 2020-0 Yes 60mg Take 60 mg U nivers HCL 2-25 by mouth 3 ity of (CYMBALTA 14:58: (three) [place] ORAL) 32 times Medical daily. Branch VITAMIN B 2020-0 Yes Take by Unive rs COMPLEX 2-25 mouth. ity of ORAL 14:58: [place] [address] [facility] traZODONE 2020-0 Yes 100mg Take 100 Uni vers 100 mg 2-25 mg by ity of tablet 14:58: mouth at [place] [address] bedtime. Medical Branch benztropine 2020-0 Yes 1mg Take 1 mg U nivers 1 mg tablet 2-25 by mouth ity of 14:58: daily. [place] [address] [facility] DULOXETINE 2020-0 Yes 60mg Take 60 mg U nivers HCL 2-25 by mouth 3 ity of (CYMBALTA 14:58: (three) [place] ORAL) 32 times Medical daily. Branch VITAMIN B 2020-0 Yes Take by Unive rs COMPLEX 2-25 mouth. ity of ORAL 14:58: [place] [address] [facility] traZODONE 2020-0 Yes 100mg Take 100 Uni vers 100 mg 2-25 mg by ity of tablet 14:58: mouth at [place] [address] bedtime. Medical Branch benztropine 2020-0 Yes 1mg Take 1 mg U nivers 1 mg tablet 2-25 by mouth ity of 14:58: daily. [place] [address] [facility] DULOXETINE 2020-0 Yes 60mg Take 60 mg U nivers HCL 2-25 by mouth 3 ity of (CYMBALTA 14:58: (three) [place] ORAL) 32 times Medical daily. Branch VITAMIN B 2020-0 Yes Take by Unive rs COMPLEX 2-25 mouth. ity of ORAL 14:58: [place] [address] [facility] traZODONE 2020-0 Yes 100mg Take 100 Uni vers 100 mg 2-25 mg by ity of tablet 14:58: mouth at [place] [address] bedtime. Medical Branch benztropine 2020-0 Yes 1mg Take 1 mg U nivers 1 mg tablet 2-25 by mouth ity of 14:58: daily. [place] [address] [facility] DULOXETINE 2020-0 Yes 60mg Take 60 mg U nivers HCL 2-25 by mouth 3 ity of (CYMBALTA 14:58: (three) [place] ORAL) 32 times Medical daily. Branch VITAMIN B 2020-0 Yes Take by Unive rs COMPLEX 2-25 mouth. ity of ORAL 14:58: [place] [address] [facility] traZODONE 2020-0 Yes 100mg Take 100 Uni vers 100 mg 2-25 mg by ity of tablet 14:58: mouth at [place] [address] bedtime. Medical Branch benztropine 2020-0 Yes 1mg Take 1 mg U nivers 1 mg tablet 2-25 by mouth ity of 14:58: daily. [place] [address] [facility] DULOXETINE 2020-0 Yes 60mg Take 60 mg U nivers HCL 2-25 by mouth 3 ity of (CYMBALTA 14:58: (three) [place] ORAL) 32 times Medical daily. Branch VITAMIN B 2020-0 Yes Take by Unive rs COMPLEX 2-25 mouth. ity of ORAL 14:58: [place] [address] [facility] traZODONE 2020-0 Yes 100mg Take 100 Uni vers 100 mg 2-25 mg by ity of tablet 14:58: mouth at [place] [address] bedtime. Medical Branch benztropine 2020-0 Yes 1mg Take 1 mg U nivers 1 mg tablet 2-25 by mouth ity of 14:58: daily. [place] [address] [facility] DULOXETINE 2020-0 Yes 60mg Take 60 mg U nivers HCL 2-25 by mouth 3 ity of (CYMBALTA 14:58: (three) [place] ORAL) 32 times Medical daily. Branch VITAMIN B 2020-0 Yes Take by Unive rs COMPLEX 2-25 mouth. ity of ORAL 14:58: [place] [address] [facility] traZODONE 2020-0 Yes 100mg Take 100 Uni vers 100 mg 2-25 mg by ity of tablet 14:58: mouth at [place] [address] bedtime. Medical Branch benztropine 2020-0 Yes 1mg Take 1 mg U nivers 1 mg tablet 2-25 by mouth ity of 14:58: daily. [place] [address] [facility] DULOXETINE 2020-0 Yes 60mg Take 60 mg U nivers HCL 2-25 by mouth 3 ity of (CYMBALTA 14:58: (three) [place] ORAL) 32 times Medical daily. Branch VITAMIN B 2020-0 Yes Take by Unive rs COMPLEX 2-25 mouth. ity of ORAL 14:58: [place] [address] [facility] traZODONE 2020-0 Yes 100mg Take 100 Uni vers 100 mg 2-25 mg by ity of tablet 14:58: mouth at [place] [address] bedtime. Medical Branch benztropine 2020-0 Yes 1mg Take 1 mg U nivers 1 mg tablet 2-25 by mouth ity of 14:58: daily. [place] [address] [facility] DULOXETINE 2020-0 Yes 60mg Take 60 mg U nivers HCL 2-25 by mouth 3 ity of (CYMBALTA 14:58: (three) [place] ORAL) 32 times Medical daily. Branch VITAMIN B 2020-0 Yes Take by Unive rs COMPLEX 2-25 mouth. ity of ORAL 14:58: [place] [address] [facility] traZODONE 2020-0 Yes 100mg Take 100 Uni vers 100 mg 2-25 mg by ity of tablet 14:58: mouth at [place] [address] bedtime. Medical Branch benztropine 2020-0 Yes 1mg Take 1 mg U nivers 1 mg tablet 2-25 by mouth ity of 14:58: daily. [place] [address] [facility] DULOXETINE 2020-0 Yes 60mg Take 60 mg U nivers HCL 2-25 by mouth 3 ity of (CYMBALTA 14:58: (three) [place] ORAL) 32 times Medical daily. Branch VITAMIN B 2020-0 Yes Take by Unive rs COMPLEX 2-25 mouth. ity of ORAL 14:58: [place] [address] [facility] traZODONE 2020-0 Yes 100mg Take 100 Uni vers 100 mg 2-25 mg by ity of tablet 14:58: mouth at [place] [address] bedtime. Medical Branch benztropine 2020-0 Yes 1mg Take 1 mg U nivers 1 mg tablet 2-25 by mouth ity of 14:58: daily. [place] [address] [facility] DULOXETINE 2020-0 Yes 60mg Take 60 mg U nivers HCL 2-25 by mouth 3 ity of (CYMBALTA 14:58: (three) [place] ORAL) 32 times Medical daily. Branch VITAMIN B 2020-0 Yes Take by Unive rs COMPLEX 2-25 mouth. ity of ORAL 14:58: [place] [address] [facility] traZODONE 2020-0 Yes 100mg Take 100 Uni vers 100 mg 2-25 mg by ity of tablet 14:58: mouth at [place] [address] bedtime. Medical Branch benztropine 2020-0 Yes 1mg Take 1 mg U nivers 1 mg tablet 2-25 by mouth ity of 14:58: daily. [place] [address] [facility] VITAMIN B 2020-0 Yes Take by Unive rs COMPLEX 2-25 mouth. ity of ORAL 14:58: [place] [address] [facility] traZODONE 2020-0 Yes 100mg Take 100 Uni vers 100 mg 2-25 mg by ity of tablet 14:58: mouth at [place] [address] bedtime. Medical Branch benztropine 2020-0 Yes 1mg Take 1 mg U nivers 1 mg tablet 2-25 by mouth ity of 14:58: daily. [address] VITAMIN B 2020-0 Yes Take by Unive rs COMPLEX 2-25 mouth. ity of ORAL 14:58: [address] Branch traZODONE 2020-0 Yes 100mg Take 100 Uni vers 100 mg 2-25 mg by ity of tablet 14:58: mouth at [place] [address] bedtime. Medical Branch benztropine 2020-0 Yes 1mg Take 1 mg U nivers 1 mg tablet 2-25 by mouth ity of 14:58: daily. [address] VITAMIN B 2020-0 Yes Take by Unive rs COMPLEX 2-25 mouth. ity of ORAL 14:58: [address] traZODONE 2020-0 Yes 100mg Take 100 Uni vers 100 mg 2-25 mg by ity of tablet 14:58: mouth at [place] [address] bedtime. Medical Branch benztropine 2020-0 Yes 1mg Take 1 mg U nivers 1 mg tablet 2-25 by mouth ity of 14:58: daily. [address] VITAMIN B 2020-0 Yes Take by Unive rs COMPLEX 2-25 mouth. ity of ORAL 14:58: [address] traZODONE 2020-0 Yes 100mg Take 100 Uni vers 100 mg 2-25 mg by ity of tablet 14:58: mouth at [place] [address] bedtime. Medical Branch benztropine 2020-0 Yes 1mg Take 1 mg U nivers 1 mg tablet 2-25 by mouth ity of 14:58: daily. [address] VITAMIN B 2020-0 Yes Take by Unive rs COMPLEX 2-25 mouth. ity of ORAL 14:58: [address] Branch traZODONE 2020-0 Yes 100mg Take 100 Uni vers 100 mg 2-25 mg by ity of tablet 14:58: mouth at [place] [address] bedtime. Medical Branch benztropine 2020-0 Yes 1mg Take 1 mg U nivers 1 mg tablet 2-25 by mouth ity of 14:58: daily. [address] VITAMIN B 2020-0 Yes Take by Unive rs COMPLEX 2-25 mouth. ity of ORAL 14:58: [address] traZODONE 2020-0 Yes 100mg Take 100 Uni vers 100 mg 2-25 mg by ity of tablet 14:58: mouth at [place] [address] bedtime. Medical Branch benztropine 2020-0 Yes 1mg Take 1 mg U nivers 1 mg tablet 2-25 by mouth ity of 14:58: daily. [address] VITAMIN B 2020-0 Yes Take by Unive rs COMPLEX 2-25 mouth. ity of ORAL 14:58: [address] traZODONE 2020-0 Yes 100mg Take 100 Uni vers 100 mg 2-25 mg by ity of tablet 14:58: mouth at [place] [address] bedtime. Medical Branch benztropine 2020-0 Yes 1mg Take 1 mg U nivers 1 mg tablet 2-25 by mouth ity of 14:58: daily. [address] VITAMIN B 2020-0 Yes Take by Unive rs COMPLEX 2-25 mouth. ity of ORAL 14:58: [address] traZODONE 2020-0 Yes 100mg Take 100 Uni vers 100 mg 2-25 mg by ity of tablet 14:58: mouth at [place] [address] bedtime. Medical Branch benztropine 2020-0 Yes 1mg Take 1 mg U nivers 1 mg tablet 2-25 by mouth ity of 14:58: daily. [address] VITAMIN B 2020-0 Yes Take by Unive rs COMPLEX 2-25 mouth. ity of ORAL 14:58: [address] traZODONE 2020-0 Yes 100mg Take 100 Uni vers 100 mg 2-25 mg by ity of tablet 14:58: mouth at [place] [address] bedtime. Medical Branch benztropine 2020-0 Yes 1mg Take 1 mg U nivers 1 mg tablet 2-25 by mouth ity of 14:58: daily. [address] VITAMIN B 2020-0 Yes Take by Unive rs COMPLEX 2-25 mouth. ity of ORAL 14:58: [address] traZODONE 2020-0 Yes 100mg Take 100 Uni vers 100 mg 2-25 mg by ity of tablet 14:58: mouth at [place] [address] bedtime. Medical Branch benztropine 2020-0 Yes 1mg Take 1 mg U nivers 1 mg tablet 2-25 by mouth ity of 14:58: daily. [address] VITAMIN B 2020-0 Yes Take by Unive rs COMPLEX 2-25 mouth. ity of ORAL 14:58: [address] traZODONE 2020-0 Yes 100mg Take 100 Uni vers 100 mg 2-25 mg by ity of tablet 14:58: mouth at [place] [address] bedtime. Medical Branch benztropine 2020-0 Yes 1mg Take 1 mg U nivers 1 mg tablet 2-25 by mouth ity of 14:58: daily. [address] Branch VITAMIN B 2020-0 Yes Take by Unive rs COMPLEX 2-25 mouth. ity of ORAL 14:58: [address] Branch traZODONE 2020-0 Yes 100mg Take 100 Uni vers 100 mg 2-25 mg by ity of tablet 14:58: mouth at [place] [address] bedtime. Medical Branch benztropine 2020-0 Yes 1mg Take 1 mg U nivers 1 mg tablet 2-25 by mouth ity of 14:58: daily. [address] VITAMIN B 2020-0 Yes Take by Unive rs COMPLEX 2-25 mouth. ity of ORAL 14:58: [address] traZODONE 2020-0 Yes 100mg Take 100 Uni vers 100 mg 2-25 mg by ity of tablet 14:58: mouth at [place] [address] bedtime. Medical Branch benztropine 2020-0 Yes 1mg Take 1 mg U nivers 1 mg tablet 2-25 by mouth ity of 14:58: daily. [address] VITAMIN B 2020-0 Yes Take by Unive rs COMPLEX 2-25 mouth. ity of ORAL 14:58: [address] traZODONE 2020-0 Yes 100mg Take 100 Uni vers 100 mg 2-25 mg by ity of tablet 14:58: mouth at [place] [address] bedtime. Medical Branch benztropine 2020-0 Yes 1mg Take 1 mg U nivers 1 mg tablet 2-25 by mouth ity of 14:58: daily. [address] VITAMIN B 2020-0 Yes Take by Unive rs COMPLEX 2-25 mouth. ity of ORAL 14:58: [address] traZODONE 2020-0 Yes 100mg Take 100 Uni vers 100 mg 2-25 mg by ity of tablet 14:58: mouth at [place] [address] bedtime. Medical Branch benztropine 2020-0 Yes 1mg Take 1 mg U nivers 1 mg tablet 2-25 by mouth ity of 14:58: daily. [address] aripiprazol 2020-0 Yes 5mg Take 5 [...] COMPLEX 2-25 mouth. ity of ORAL 08:58: [address] Branch traZODONE 2020-0 Yes 100mg Take 100 Uni vers 100 mg 2-25 mg by ity of tablet 08:58: mouth at [place] [address] bedtime. Medical Branch benztropine 2020-0 Yes 1mg Take 1 mg U nivers 1 mg tablet 2-25 by mouth ity of 08:58: daily. [place] [address] [facility] Branch ARIPiprazol 2020-0 Yes 10mg Take 10 mg Univers e 10 mg 2-25 by mouth 2 ity of tablet 08:58: (two) [place] 06 times Medical daily. Branch aripiprazol 2020-0 Yes 5mg Take 5 mg U nivers e (ABILIFY 2-24 by mouth 2 ity of ORAL) 17:16: (two) [place] 05 times Medical daily. Branch benztropine 2020-0 Yes 1mg Take 1 mg U nivers 1 mg tablet 2-24 by mouth ity of 17:16: daily. [place] [address] [facility] Branch ARIPiprazol 2020-0 Yes 10mg Take 10 mg Univers e 10 mg 2-24 by mouth 2 ity of tablet 17:16: (two) [place] 05 times Medical daily. Branch aripiprazol 2020-0 Yes 5mg Take 5 mg U nivers e (ABILIFY 2-24 by mouth 2 ity of ORAL) 17:16: (two) [place] 05 times Medical daily. Branch benztropine 2020-0 Yes 1mg Take 1 mg U nivers 1 mg tablet 2-24 by mouth ity of 17:16: daily. [place] [address] [facility] Branch ARIPiprazol 2020-0 Yes 10mg Take [...] 2-24 by mouth ity of 17:16: daily. [place] [address] [facility] Branch ARIPiprazol 2020-0 Yes 10mg Take [...] COMPLEX 2-24 mouth. ity of ORAL 17:15: [place] [address] [facility] Branch traZODONE 2020-0 Yes 100mg Take 100 Uni vers 100 mg 2-24 mg by ity of tablet 17:15: mouth at [place] [address] bedtime. Medical Branch DULOXETINE 2020-0 Yes 60mg Take 60 mg U nivers HCL 2-24 by mouth 3 ity of (CYMBALTA 17:15: (three) [place] ORAL) 45 times Medical daily. Branch VITAMIN B 2020-0 Yes Take by Unive rs COMPLEX 2-24 mouth. ity of ORAL 17:15: [place] [address] [facility] Branch traZODONE 2020-0 Yes 100mg Take 100 Uni vers 100 mg 2-24 mg by ity of tablet 17:15: mouth at [place] 45 bedtime. Medical Branch DULOXETINE 2020-0 Yes 60mg Take 60 mg U nivers HCL 2-24 by mouth 3 ity of (CYMBALTA 17:15: (three) [place] ORAL) 45 times Medical daily. Branch VITAMIN B 2020-0 Yes Take by Univ ers COMPLEX 2-24 mouth. ity of ORAL 17:15: [place] [address] [facility] Branch traZODONE 2020-0 Yes 100mg Take 100 Uni vers 100 mg 2-24 mg by ity of tablet 17:15: mouth at [place] 45 bedtime. Medical Branch OLANZapine 2020-0 2020- No 20mg Take 20 mg [facility] 20 mg 2-24 10-24 by mouth ity of tablet 17:15: 00:00 at [place] 35 :00 bedtime. Medical Branch OLANZapine 2019- 2020- No 20mg Take 20 mg Univers 20 mg -24 10-24 by mouth ity of tablet 17:15: 00:00 at [place] 35 :00 bedtime. Medical Branch OLANZapine 2020- No 20mg Take 20 mg [facility] 20 mg -24 10-24 by mouth ity of tablet 17:15: 00:00 at [place] 35 :00 bedtime. Medical Branch OLANZapine 2020- No 10mg Take 10 mg Univers (ZYPREXA) 2-24 10-24 by mouth 2 ity of 10 mg 17:15: 00:00 (two) [place] tablet 26 :00 times Medical daily. Branch OLANZapine 2019-2019- No 10mg Take 10 mg Univers (ZYPREXA) [...] ity of capsule 17:15: 00:00 by mouth [place] 09 :00 daily. Medical Branch DULoxetine 2020- No Take 3 Univ ers 30 mg 2-24 02-24 capsules ity of capsule 17:15: 00:00 by mouth [place] 09 :00 daily. Medical Branch DULoxetine 2020- No Take 3 Univ ers 30 mg 2-24 02-24 capsules ity of capsule 17:15: 00:00 by mouth [place] 09 :00 daily. [facility] Branch metoprolol 2019-0 Yes [id number] 50mg Take 1 Un nneka succinate 2-24 tablet by ity o f XL 50 mg 24 00:00: mouth [place] hr tablet 00 daily. [facility] Branch metoprolol 2019- Yes [id number] 50mg Take 1 Un nneka succinate 2-24 tablet by ity o f XL 50 mg 24 00:00: mouth [place] hr tablet 00 daily. [facility] Branch metoprolol 2020-0 Yes [id number] 50mg Take 1 Un nneka succinate 2-24 tablet by ity o f XL 50 mg 24 00:00: mouth [place] hr tablet 00 daily. [facility] Branch metoprolol 2020-0 Yes [id number] 50mg Take 1 Un nneka succinate 2-24 tablet by ity o f XL 50 mg 24 00:00: mouth [place] hr tablet 00 daily. [facility] Branch metoprolol 2020-0 Yes [id number] 50mg Take 1 Un nneka succinate 2-24 tablet by ity o f XL 50 mg 24 00:00: mouth [place] hr tablet 00 daily. [facility] Branch metoprolol 2020-0 Yes [id number] 50mg Take 1 Un nneka succinate 2-24 tablet by ity o f XL 50 mg 24 00:00: mouth [place] hr tablet 00 daily. [facility] metoprolol 2020-0 Yes [id number] 50mg Take 1 Un nneka succinate 2-24 tablet by ity o f XL 50 mg 24 00:00: mouth [place] hr tablet 00 daily. [facility] Branch metoprolol 2020-0 Yes [id number] 50mg Take 1 Un nneka succinate 2-24 tablet by ity o f XL 50 mg 24 00:00: mouth [place] hr tablet 00 daily. [facility] metoprolol 2020-0 Yes [id number] 50mg Take 1 Un nneka succinate 2-24 tablet by ity o f XL 50 mg 24 00:00: mouth [place] hr tablet 00 daily. [facility] Branch metoprolol 2020-0 Yes [id number] 50mg Take 1 Un nneka succinate 2-24 tablet by ity o f XL 50 mg 24 00:00: mouth [place] hr tablet 00 daily. [facility] metoprolol 2020-0 2020- No [id number] 50mg Take 1 U nivers succinate 2-24 -09 tablet by ity of XL 50 mg 24 00:00: 00:00 mouth [place] hr tablet 00 :00 daily. [facility] metoprolol 2020-0 2020- No [id number] 50mg Take 1 U nivers succinate 2-24 -09 tablet by ity of XL 50 mg 24 00:00: 00:00 mouth [place] hr tablet 00 :00 daily. [facility] metoprolol 2020-0 2020- No [id number] 50mg Take 1 U nivers succinate 2-24 -09 tablet by ity of XL 50 mg 24 00:00: 00:00 mouth [place] hr tablet 00 :00 daily. [facility] metoprolol 2020-0 2020- No [id number] 50mg Take 1 U nivers succinate 2-24 07-09 tablet by ity of XL 50 mg 24 00:00: 00:00 mouth [place] hr tablet 00 :00 daily. [facility] Branch hydroCHLORO 2020-0 Yes [id number] 25mg Take 1 [facility] thiazide 25 1-30 tablet by ity of mg tablet 00:00: mouth [place] 00 daily. Medical Branch meloxicam 2020-0 Yes [id number] 15mg Take 1 U nivers 15 mg 1-30 tablet by ity of tablet 00:00: mouth [place] 00 daily. Medical Branch metoprolol 2020-0 Yes [id number] 25mg Take 1 Un nneka succinate 1-30 tablet by ity o f XL 25 mg 24 00:00: mouth [place] hr tablet 00 daily. Medical Branch pregabalin 2020-0 Yes [id number] 150mg Take 1 Univers (LYRICA) 1-30 capsule by ity o f 150 mg 00:00: mouth 2 [place] capsule 00 (two) Medical times Branch daily. hydroCHLORO 2020-0 Yes [id number] 25mg Take 1 [facility] thiazide 25 1-30 tablet by ity of mg tablet 00:00: mouth [place] 00 daily. Medical Branch meloxicam 2020-0 Yes [id number] 15mg Take 1 U nivers 15 mg 1-30 tablet by ity of tablet 00:00: mouth [place] 00 daily. Medical Branch metoprolol 2020-0 Yes [id number] 25mg Take 1 Un nneka succinate 1-30 tablet by ity o f XL 25 mg 24 00:00: mouth [place] hr tablet 00 daily. Medical Branch pregabalin 2020-0 Yes [id number] 150mg Take 1 Univers (LYRICA) 1-30 capsule by ity o f 150 mg 00:00: mouth 2 [place] capsule 00 (two) Medical times Branch daily. hydroCHLORO 2020-0 Yes [id number] 25mg Take 1 [facility] thiazide 25 1-30 tablet by ity of mg tablet 00:00: mouth [place] 00 daily. Medical Branch meloxicam 2020-0 Yes [id number] 15mg Take 1 U nivers 15 mg 1-30 tablet by ity of tablet 00:00: mouth [place] 00 daily. Medical Branch pregabalin 2020-0 Yes [id number] 150mg Take 1 Univers (LYRICA) 1-30 capsule by ity o f 150 mg 00:00: mouth 2 [place] capsule 00 (two) Medical times Branch daily. hydroCHLORO 2020-0 Yes [id number] 25mg Take 1 [facility] thiazide 25 1-30 tablet by ity of mg tablet 00:00: mouth [place] 00 daily. Medical Branch meloxicam 2020-0 Yes [id number] 15mg Take 1 U nivers 15 mg 1-30 tablet by ity of tablet 00:00: mouth [place] 00 daily. Medical Branch pregabalin 2020-0 Yes [id number] 150mg Take 1 Univers (LYRICA) 1-30 capsule by ity o f 150 mg 00:00: mouth 2 [place] capsule 00 (two) Medical times Branch daily. hydroCHLORO 2020-0 Yes [id number] 25mg Take 1 [facility] thiazide 25 1-30 tablet by ity of mg tablet 00:00: mouth [place] 00 daily. Medical Branch meloxicam 2020-0 Yes [id number] 15mg Take 1 U nivers 15 mg 1-30 tablet by ity of tablet 00:00: mouth [place] 00 daily. Medical Branch pregabalin 2020-0 Yes [id number] 150mg Take 1 Univers (LYRICA) 1-30 capsule by ity o f 150 mg 00:00: mouth 2 [place] capsule 00 (two) Medical times Branch daily. hydroCHLORO 2020-0 Yes [id number] 25mg Take 1 [facility] thiazide 25 1-30 tablet by ity of mg tablet 00:00: mouth [place] 00 daily. Medical Branch meloxicam 2020-0 Yes [id number] 15mg Take 1 U nivers 15 mg 1-30 tablet by ity of tablet 00:00: mouth [place] 00 daily. Medical Branch pregabalin 2020-0 Yes [id number] 150mg Take 1 Univers (LYRICA) 1-30 capsule by ity o f 150 mg 00:00: mouth 2 [place] capsule 00 (two) Medical times Branch daily. hydroCHLORO 2020-0 Yes [id number] 25mg Take 1 [facility] thiazide 25 1-30 tablet by ity of mg tablet 00:00: mouth [place] 00 daily. Medical Branch meloxicam 2020-0 Yes [id number] 15mg Take 1 U nivers 15 mg 1-30 tablet by ity of tablet 00:00: mouth [place] 00 daily. Medical Branch pregabalin 2020-0 Yes [id number] 150mg Take 1 Univers (LYRICA) 1-30 capsule by ity o f 150 mg 00:00: mouth 2 [place] capsule 00 (two) Medical times Branch daily. hydroCHLORO 2020-0 Yes [id number] 25mg Take 1 [facility] thiazide 25 1-30 tablet by ity of mg tablet 00:00: mouth [place] 00 daily. Medical Branch meloxicam 2020-0 Yes [id number] 15mg Take 1 U nivers 15 mg 1-30 tablet by ity of tablet 00:00: mouth [place] 00 daily. Medical Branch pregabalin 2020-0 Yes [id number] 150mg Take 1 Univers (LYRICA) 1-30 capsule by ity o f 150 mg 00:00: mouth 2 [place] capsule 00 (two) Medical times Branch daily. hydroCHLORO 2020-0 Yes [id number] 25mg Take 1 [facility] thiazide 25 1-30 tablet by ity of mg tablet 00:00: mouth [place] 00 daily. Medical Branch meloxicam 2020-0 Yes [id number] 15mg Take 1 U nivers 15 mg 1-30 tablet by ity of tablet 00:00: mouth [place] 00 daily. Medical Branch pregabalin 2020-0 Yes [id number] 150mg Take 1 Univers (LYRICA) 1-30 capsule by ity o f 150 mg 00:00: mouth 2 [place] capsule 00 (two) Medical times Branch daily. hydroCHLORO 2020-0 Yes [id number] 25mg Take 1 [facility] thiazide 25 1-30 tablet by ity of mg tablet 00:00: mouth [place] 00 daily. Medical Branch meloxicam 2020-0 Yes [id number] 15mg Take 1 U nivers 15 mg 1-30 tablet by ity of tablet 00:00: mouth [place] 00 daily. Medical Branch pregabalin 2020-0 Yes [id number] 150mg Take 1 Univers (LYRICA) 1-30 capsule by ity o f 150 mg 00:00: mouth 2 [place] capsule 00 (two) Medical times Branch daily. hydroCHLORO 2020-0 Yes [id number] 25mg Take 1 [facility] thiazide 25 1-30 tablet by ity of mg tablet 00:00: mouth [place] 00 daily. Medical Branch meloxicam 2020-0 Yes [id number] 15mg Take 1 U nivers 15 mg 1-30 tablet by ity of tablet 00:00: mouth [place] 00 daily. Medical Branch pregabalin 2020-0 Yes [id number] 150mg Take 1 Univers (LYRICA) 1-30 capsule by ity o f 150 mg 00:00: mouth 2 [place] capsule 00 (two) Medical times Branch daily. hydroCHLORO 2020-0 Yes [id number] 25mg Take 1 [facility] thiazide 25 1-30 tablet by ity of mg tablet 00:00: mouth [place] 00 daily. Medical Branch meloxicam 2020-0 Yes [id number] 15mg Take 1 U nivers 15 mg 1-30 tablet by ity of tablet 00:00: mouth [place] 00 daily. [facility] pregabalin 2020-0 Yes [id number] 150mg Take 1 [facility] (LYRICA) 1-30 capsule by ity o f 150 mg 00:00: mouth 2 [place] capsule 00 (two) Medical times Branch daily. meloxicam 2020-0 Yes [id number] 15mg Take 1 U nivers 15 mg 1-30 tablet by ity of tablet 00:00: mouth [place] 00 daily. [facility] pregabalin 2020-0 Yes [id number] 150mg Take 1 [facility] (LYRICA) 1-30 capsule by ity o f 150 mg 00:00: mouth 2 [place] capsule 00 (two) Medical times Branch daily. meloxicam 2020-0 Yes [id number] 15mg Take 1 U nivers 15 mg 1-30 tablet by ity of tablet 00:00: mouth [place] 00 daily. [facility] pregabalin 2020-0 Yes [id number] 150mg Take 1 [facility] (LYRICA) 1-30 capsule by ity o f 150 mg 00:00: mouth 2 [place] capsule 00 (two) Medical times Branch daily. meloxicam 2020-0 Yes [id number] 15mg Take 1 U nivers 15 mg 1-30 tablet by ity of tablet 00:00: mouth [place] 00 daily. [facility] pregabalin 2020-0 Yes [id number] 150mg Take 1 [facility] (LYRICA) 1-30 capsule by ity o f 150 mg 00:00: mouth 2 [place] capsule 00 (two) Medical times Branch daily. meloxicam 2020-0 Yes [id number] 15mg Take 1 U nivers 15 mg 1-30 tablet by ity of tablet 00:00: mouth [place] 00 daily. [facility] pregabalin 2020-0 Yes [id number] 150mg Take 1 [facility] (LYRICA) 1-30 capsule by ity o f 150 mg 00:00: mouth 2 [place] capsule 00 (two) Medical times Branch daily. meloxicam 2020-0 Yes [id number] 15mg Take 1 U nivers 15 mg 1-30 tablet by ity of tablet 00:00: mouth [place] 00 daily. [facility] pregabalin 2020-0 Yes [id number] 150mg Take 1 [facility] (LYRICA) 1-30 capsule by ity o f 150 mg 00:00: mouth 2 [place] capsule 00 (two) Medical times Branch daily. meloxicam 2020-0 Yes [id number] 15mg Take 1 U nivers 15 mg 1-30 tablet by ity of tablet 00:00: mouth [place] 00 daily. [facility] pregabalin 2020-0 Yes [id number] 150mg Take 1 [facility] (LYRICA) 1-30 capsule by ity o f 150 mg 00:00: mouth 2 [place] capsule 00 (two) Medical times Branch daily. meloxicam 2020-0 Yes [id number] 15mg Take 1 U nivers 15 mg 1-30 tablet by ity of tablet 00:00: mouth [place] 00 daily. [facility] pregabalin 2020-0 Yes [id number] 150mg Take 1 [facility] (LYRICA) 1-30 capsule by ity o f 150 mg 00:00: mouth 2 [place] capsule 00 (two) Medical times Branch daily. meloxicam 2020-0 Yes [id number] 15mg Take 1 U nivers 15 mg 1-30 tablet by ity of tablet 00:00: mouth [place] 00 daily. [facility] pregabalin 2020-0 Yes [id number] 150mg Take 1 [facility] (LYRICA) 1-30 capsule by ity o f 150 mg 00:00: mouth 2 [place] capsule 00 (two) Medical times Branch daily. meloxicam 2020-0 Yes [id number] 15mg Take 1 U nivers 15 mg 1-30 tablet by ity of tablet 00:00: mouth [place] 00 daily. [facility] pregabalin 2020-0 Yes [id number] 150mg Take 1 [facility] (LYRICA) 1-30 capsule by ity o f 150 mg 00:00: mouth 2 [place] capsule 00 (two) Medical times Branch daily. meloxicam 2020-0 Yes [id number] 15mg Take 1 U nivers 15 mg 1-30 tablet by ity of tablet 00:00: mouth [place] 00 daily. [facility] pregabalin 2020-0 Yes [id number] 150mg Take 1 [facility] (LYRICA) 1-30 capsule by ity o f 150 mg 00:00: mouth 2 [place] capsule 00 (two) Medical times Branch daily. meloxicam 2020-0 Yes [id number] 15mg Take 1 U nivers 15 mg 1-30 tablet by ity of tablet 00:00: mouth [place] 00 daily. [facility] pregabalin 2020-0 Yes [id number] 150mg Take 1 [facility] (LYRICA) 1-30 capsule by ity o f 150 mg 00:00: mouth 2 [place] capsule 00 (two) Medical times Branch daily. meloxicam 2020-0 Yes [id number] 15mg Take 1 U nivers 15 mg 1-30 tablet by ity of tablet 00:00: mouth [place] 00 daily. [facility] pregabalin 2020-0 Yes [id number] 150mg Take 1 [facility] (LYRICA) 1-30 capsule by ity o f 150 mg 00:00: mouth 2 [place] capsule 00 (two) Medical times Branch daily. meloxicam 2020-0 Yes [id number] 15mg Take 1 U nivers 15 mg 1-30 tablet by ity of tablet 00:00: mouth [place] 00 daily. [facility] pregabalin 2020-0 Yes [id number] 150mg Take 1 [facility] (LYRICA) 1-30 capsule by ity o f 150 mg 00:00: mouth 2 [place] capsule 00 (two) Medical times Branch daily. meloxicam 2020-0 Yes [id number] 15mg Take 1 U nivers 15 mg 1-30 tablet by ity of tablet 00:00: mouth [place] 00 daily. [facility] pregabalin 2020-0 Yes [id number] 150mg Take 1 [facility] (LYRICA) 1-30 capsule by ity o f 150 mg 00:00: mouth 2 [place] capsule 00 (two) Medical times Branch daily. meloxicam 2020-0 Yes [id number] 15mg Take 1 U nivers 15 mg 1-30 tablet by ity of tablet 00:00: mouth [place] 00 daily. [facility] pregabalin 2020-0 Yes [id number] 150mg Take 1 [facility] (LYRICA) 1-30 capsule by ity o f 150 mg 00:00: mouth 2 [place] capsule 00 (two) Medical times Branch daily. meloxicam 2020-0 Yes [id number] 15mg Take 1 U nivers 15 mg 1-30 tablet by ity of tablet 00:00: mouth [place] 00 daily. [facility] pregabalin 2020-0 Yes [id number] 150mg Take 1 [facility] (LYRICA) 1-30 capsule by ity o f 150 mg 00:00: mouth 2 [place] capsule 00 (two) Medical times Branch daily. meloxicam 2020-0 Yes [id number] 15mg Take 1 U nivers 15 mg 1-30 tablet by ity of tablet 00:00: mouth [place] 00 daily. [facility] Branch pregabalin 2020-0 Yes [id number] 150mg Take 1 [facility] (LYRICA) 1-30 capsule by ity o f 150 mg 00:00: mouth 2 [place] capsule 00 (two) Medical times [place] daily. meloxicam 2020-0 Yes [id number] 15mg Take 1 U nivers 15 mg 1-30 tablet by ity of tablet 00:00: mouth [place] 00 daily. [facility] Branch meloxicam 2020-0 Yes [id number] 15mg Take 1 U nivers 15 mg 1-30 tablet by ity of tablet 00:00: mouth [place] 00 daily. [facility] meloxicam 2020-0 Yes [id number] 15mg Take 1 U nivers 15 mg 1-30 tablet by ity of tablet 00:00: mouth [place] 00 daily. [facility] Branch meloxicam 2020-0 Yes [id number] 15mg Take 1 U nivers 15 mg 1-30 tablet by ity of tablet 00:00: mouth [place] 00 daily. [facility] Branch meloxicam 2020-0 Yes [id number] 15mg Take 1 U nivers 15 mg 1-30 tablet by ity of tablet 00:00: mouth [place] 00 daily. [facility] Branch meloxicam 2020-0 Yes [id number] 15mg Take 1 U nivers 15 mg 1-30 tablet by ity of tablet 00:00: mouth [place] 00 daily. [facility] meloxicam 2020-0 Yes [id number] 15mg Take 1 U nivers 15 mg 1-30 tablet by ity of tablet 00:00: mouth [place] 00 daily. [facility] meloxicam 2020-0 Yes [id number] 15mg Take 1 U nivers 15 mg 1-30 tablet by ity of tablet 00:00: mouth [place] 00 daily. Medical Branch meloxicam Yes [id number] 15mg Take 1 U nivers 15 mg 1-30 tablet by ity of tablet 00:00: mouth [place] 00 daily. Medical Branch pregabalin 2019- No [id number] 150mg Take 1 [facility] (LYRICA) -30 12-21 capsule by ity of 150 mg 00:00: 00:00 mouth 2 [place] capsule 00 :00 (two) Medical times Branch daily. hydroCHLORO 2019- No [id number] 25mg Take 1 [facility] thiazide 25 30 07-09 tablet by it y of mg tablet 00:00: 00:00 mouth [place] 00 :00 daily. Medical Branch hydroCHLORO 2019- No [id number] 25mg Take 1 [facility] thiazide 25 30 -09 tablet by it y of mg tablet 00:00: 00:00 mouth [place] 00 :00 daily. Medical Branch hydroCHLORO 2019- No [id number] 25mg Take 1 [facility] thiazide 25 30 -09 tablet by it y of mg tablet 00:00: 00:00 mouth [place] 00 :00 daily. Medical Branch hydroCHLORO 2019- No [id number] 25mg Take 1 [facility] thiazide 25 30 -09 tablet by it y of mg tablet 00:00: 00:00 mouth [place] 00 :00 daily. Medical Branch metoprolol 2019-2019- No [id number] 25mg Take 1 U nivers succinate 1-30 02-24 tablet by ity of XL 25 mg 24 00:00: 00:00 [place] tablet 00 :00 daily. [facility] metoprolol 2019- No [id number] 25mg Take 1 U nivers succinate 1-30 02-24 tablet by ity of XL 25 mg 24 00:00: 00:00 [place] tablet 00 :00 daily. [facility] metoprolol 2019- No [id number] 25mg Take 1 U nivers succinate 1-30 02-24 tablet by ity of XL 25 mg 24 00:00: 00:00 mouth [place] hr tablet 00 :00 daily. [facility] aripiprazol 2018-08 Yes 5mg Take 5 mg U nivers e (ABILIFY 2-17 by mouth 2 ity of ORAL) 15:02: (two) [place] 33 times Medical daily. Branch aripiprazol 2018-08 Yes 5mg Take 5 mg U nivers e (ABILIFY 2-17 by mouth 2 ity of ORAL) 15:02: (two) [place] 33 times Medical daily. Branch aripiprazol 2018-08 Yes 5mg Take 5 mg U nivers e (ABILIFY 2-17 by mouth 2 ity of ORAL) 15:02: (two) [place] 33 times Medical daily. Branch aripiprazol 2018-08 Yes 5mg Take 5 mg U nivers e (ABILIFY 2-17 by mouth 2 ity of ORAL) 15:02: (two) [place] 33 times Medical daily. Branch VITAMIN B 2018-08 Yes Take by Unive rs COMPLEX 0-31 mouth. ity of ORAL 17:11: [address] traZODONE 2018-08 Yes 100mg Take 100 [facility] vers 100 mg 0-31 mg by ity of tablet 17:11: mouth at [place] [address] bedtime. Medical Branch VITAMIN B 2018-08 Yes Take by Unive rs COMPLEX 0-31 mouth. ity of ORAL 17:11: [address] traZODONE 2018-08 Yes 100mg Take 100 [facility] vers 100 mg 0-31 mg by ity of tablet 17:11: mouth at [place] 25 bedtime. Medical Branch VITAMIN B 2018-08 Yes Take by Unive rs COMPLEX 0-31 mouth. ity of ORAL 17:11: [address] traZODONE 2018-08 Yes 100mg Take 100 [facility] vers 100 mg 0-31 mg by ity of tablet 17:11: mouth at [place] 25 bedtime. Medical Branch VITAMIN B 2018-08 Yes Take by Unive rs COMPLEX 0-31 mouth. ity of ORAL 17:11: [address] traZODONE 2018-08 Yes 100mg Take 100 [facility] vers 100 mg 0-31 mg by ity of tablet 17:11: mouth at [place] 25 bedtime. [facility] Branch traZODONE Yes 100mg Take 100 Uni vers 100 mg 8-29 mg by ity of tablet 19:24: mouth at [place] [address] bedtime. Medical Branch traZODONE Yes 100mg Take 100 [facility] vers 100 mg 8-29 mg by ity of tablet 19:24: mouth at [place] [address] bedtime. Medical Branch traZODONE 2019-0 Yes 100mg Take 100 [facility] vers 100 mg 8-29 mg by ity of tablet 19:24: mouth at [place] bedtime. Medical Branch traZODONE 2019-0 Yes 100mg Take 100 [facility] vers 100 mg 8-29 mg by ity of tablet 19:24: mouth at [place] [address] bedtime. Medical Branch traZODONE 2019-0 Yes 100mg Take 100 [facility] vers 100 mg 8-29 mg by ity of tablet 19:24: mouth at [place] [address] bedtime. Medical Branch traZODONE 0 Yes 100mg Take 100 Uni vers 100 mg 8-29 mg by ity of tablet 19:24: mouth at [place] [address] bedtime. Medical Branch benztropine 0 Yes 1mg Take 1 mg U nivers 1 mg tablet 8-29 by mouth ity of 14:39: daily. [place] [address] Medical Branch ARIPiprazol Yes 10mg Take 10 [...] 8-29 by mouth ity of 14:39: daily. [place] 21 Medical Branch ARIPiprazol Yes 10mg Take [...] 8-29 by mouth ity of 14:39: daily. [place] [address] Medical Branch ARIPiprazol 0 Yes 10mg Take [...] 8-29 by mouth ity of 14:39: daily. [address] Branch ARIPiprazol Yes 10mg Take 10 [...] 8-29 by mouth ity of 14:39: daily. [address] ARIPiprazol Yes 10mg Take 10 [...] 8-29 by mouth ity of 14:39: daily. [place] [address] Medical Branch ARIPiprazol Yes 10mg Take 10 [...] 21 times Medical daily. Branch metoprolol Yes [id number] 25mg Take 1 Un nneka succinate 8-29 tablet by ity o f XL 25 mg 24 00:00: mouth [place] hr tablet 00 daily. Medical Branch hydroCHLORO Yes [id number] 25mg Take 1 [facility] thiazide 25 8-29 tablet by ity of mg tablet 00:00: mouth [place] 00 daily. Medical Branch meloxicam Yes [id number] 15mg Take 1 U nivers 15 mg 8-29 tablet by ity of tablet 00:00: mouth [place] 00 daily. Medical Branch metoprolol Yes [id number] 25mg Take 1 Un nneka succinate 8-29 tablet by ity o f XL 25 mg 24 00:00: mouth [place] hr tablet 00 daily. Medical Branch hydroCHLORO Yes [id number] 25mg Take 1 [facility] thiazide 25 8-29 tablet by ity of mg tablet 00:00: mouth [place] 00 daily. Medical Branch meloxicam Yes [id number] 15mg Take 1 U nivers 15 mg 8-29 tablet by ity of tablet 00:00: mouth [place] 00 daily. Medical Branch metoprolol Yes [id number] 25mg Take 1 Un nneka succinate 8-29 tablet by ity o f XL 25 mg 24 00:00: mouth [place] hr tablet 00 daily. Medical Branch hydroCHLORO 2019-0 Yes [id number] 25mg Take 1 [facility] thiazide 25 8-29 tablet by ity of mg tablet 00:00: mouth [place] 00 daily. Medical Branch meloxicam 0 Yes [id number] 15mg Take 1 U nivers 15 mg 8-29 tablet by ity of tablet 00:00: mouth [place] 00 daily. Medical Branch metoprolol 0 Yes [id number] 25mg Take 1 Un nneka succinate 8-29 tablet by ity o f XL 25 mg 24 00:00: mouth [place] hr tablet 00 daily. Medical Branch hydroCHLORO 0 Yes [id number] 25mg Take 1 [facility] thiazide 25 8-29 tablet by ity of mg tablet 00:00: mouth [place] 00 daily. Medical Branch meloxicam Yes [id number] 15mg Take 1 U nivers 15 mg 8-29 tablet by ity of tablet 00:00: mouth [place] 00 daily. Medical Branch metoprolol 0 Yes [id number] 25mg Take 1 Un nneka succinate 8-29 tablet by ity o f XL 25 mg 24 00:00: mouth [place] hr tablet 00 daily. Medical Branch hydroCHLORO 0 Yes [id number] 25mg Take 1 [facility] thiazide 25 8-29 tablet by ity of mg tablet 00:00: mouth [place] 00 daily. Medical Branch meloxicam 0 Yes [id number] 15mg Take 1 U nivers 15 mg 8-29 tablet by ity of tablet 00:00: mouth [place] 00 daily. Medical Branch metoprolol 0 Yes [id number] 25mg Take 1 Un nneka succinate 8-29 tablet by ity o f XL 25 mg 24 00:00: mouth [place] hr tablet 00 daily. Medical Branch hydroCHLORO 0 Yes [id number] 25mg Take 1 [facility] thiazide 25 8-29 tablet by ity of mg tablet 00:00: mouth [place] 00 daily. Medical Branch meloxicam 0 Yes [id number] 15mg Take 1 U nivers 15 mg 8-29 tablet by ity of tablet 00:00: mouth [place] 00 daily. Medical Branch metoprolol 0 Yes [id number] 25mg Take 1 Un nneka succinate 8-29 tablet by ity o f XL 25 mg 24 00:00: mouth [place] hr tablet 00 daily. Medical Branch hydroCHLORO Yes [id number] 25mg Take 1 [facility] thiazide 25 8-29 tablet by ity of mg tablet 00:00: mouth [place] 00 daily. [facility] Branch meloxicam Yes [id number] 15mg Take 1 U nivers 15 mg 8-29 tablet by ity of tablet 00:00: mouth [place] 00 daily. [facility] Branch metoprolol 2020- No [id number] 25mg Take 1 U nivers succinate 8-28 09-30 tablet by ity of XL 25 mg 24 00:00: 00:00 [place] hr tablet 00 :00 daily. [facility] Branch hydroCHLORO 2019- No [id number] 25mg Take 1 [facility] thiazide 25 -28 09-30 tablet by it y of mg tablet 00:00: 00:00 mouth [place] 00 :00 daily. [facility] meloxicam 2020- No [id number] 15mg Take 1 [facility] 15 mg 8-28 09-30 tablet by ity of tablet 00:00: 00:00 mouth [place] 00 :00 daily. [facility] Branch metoprolol 2020- No [id number] 25mg Take 1 U nivers succinate 8-28 09-30 tablet by ity of XL 25 mg 24 00:00: 00:00 mouth [place] hr tablet 00 :00 daily. [facility] hydroCHLORO 2020- No [id number] 25mg Take 1 [facility] thiazide 25 04-28-30 tablet by it y of mg tablet 00:00: 00:00 mouth [place] 00 :00 daily. [facility] meloxicam 2020- No [id number] 15mg Take 1 [facility] 15 mg 8-28 09-30 tablet by ity of tablet 00:00: 00:00 mouth [place] 00 :00 daily. Medical Branch Dose 2019-0 No Unknown 7- 00:00: 00 Dose 2019-0 No Unknown 7- 00:00: 00 Dose 2019-0 No Unknown 7-30 00:00: 00 Dose 2019-0 No Unknown 7- 00:00: 00 Dose 2019-0 No Unknown 7-30 00:00: 00 Dose 2019-0 No Unknown 7- 00:00: 00 METOPROLOL 2019- No [id number] TAKE 1 U nivers SUCCINATE -06 07-29 TABLET BY ity of XL 25 mg 24 00:00: 00:00 MOUTH [place] hr tablet 00 :00 EVERY DAY Medic al Branch METOPROLOL 2019- No [id number] TAKE 1 U nivers SUCCINATE 7-10 -29 TABLET BY ity of XL 25 mg 24 00:00: 00:00 MOUTH [place] hr tablet 00 :00 EVERY DAY Medic al Branch hydroCHLORO 2019- No [id number] 25mg Take 1 [facility] thiazide 25 5-30 -29 tablet by it y of mg tablet 00:00: 00:00 mouth [place] 00 :00 daily. Medical Branch meloxicam 2019- No [id number] 7.5mg Take 1 [facility] (MOBIC) 7.5 -30 -29 tablet by it y of mg tablet 00:00: 00:00 mouth [place] 00 :00 daily. Medical Branch hydroCHLORO 2019- No [id number] 25mg Take 1 [facility] thiazide 25 -30 - tablet by it y of mg tablet 00:00: 00:00 mouth [place] 00 :00 daily. Medical Branch meloxicam 2019- No [id number] 7.5mg Take 1 [facility] (MOBIC) 7.5 -30 [...] by mouth ity of tablet 20:00: at [place] 25 bedtime. Medical Branch DULOXETINE 2019-0 Yes 60mg Take 60 mg U nivers HCL 4-23 by mouth 3 ity of (CYMBALTA 20:00: (three) [place] ORAL) 25 times Medical daily. Branch OLANZapine 2019-0 Yes 20mg Take 20 mg U nivers 20 mg 4-23 by mouth ity of tablet 20:00: at [place] 25 bedtime. Medical Branch DULOXETINE 2019-0 Yes 60mg Take 60 mg U nivers HCL 4-23 by mouth 3 ity of (CYMBALTA 20:00: (three) [place] ORAL) 25 times Medical daily. Branch OLANZapine 2019-0 Yes 20mg Take 20 mg U nivers 20 mg 4-23 by mouth ity of tablet 20:00: at [place] 25 bedtime. Medical Branch DULOXETINE 2019-0 Yes 60mg Take 60 mg U nivers HCL 4-23 by mouth 3 ity of (CYMBALTA 20:00: (three) [place] ORAL) 25 times Medical daily. Branch OLANZapine 2019-0 Yes 20mg Take 20 mg U nivers 20 mg 4-23 by mouth ity of tablet 20:00: at [place] 25 bedtime. Medical Branch DULOXETINE 2019-0 Yes 60mg Take 60 mg U nivers HCL 4-23 by mouth 3 ity of (CYMBALTA 20:00: (three) [place] ORAL) 25 times Medical daily. Branch OLANZapine 2019-0 Yes 20mg Take 20 mg U nivers 20 mg 4-23 by mouth ity of tablet 20:00: at [place] 25 bedtime. Medical Branch aripiprazol 2019-0 Yes [...] by mouth ity of tablet 20:00: at [place] 25 bedtime. Medical Branch aripiprazol 2019-0 Yes [...] by mouth ity of tablet 20:00: at [place] 25 bedtime. Medical Branch aripiprazol 2019-0 Yes [...] by mouth ity of tablet 20:00: at [place] 25 bedtime. Medical Branch aripiprazol 2019-0 Yes [...] by mouth ity of tablet 20:00: at [place] 25 bedtime. Medical Branch aripiprazol 2019-0 Yes 5mg Take 5 mg U nivers e (ABILIFY 4-23 by mouth 2 ity of ORAL) 20:00: (two) [place] 25 times Medical daily. Branch VITAMIN B 2019-0 Yes Take by Unive rs COMPLEX 3-28 mouth. ity of ORAL 16:11: [address] Branch VITAMIN B 2019-0 Yes Take by Unive rs COMPLEX 3-28 mouth. ity of ORAL 16:11: [address] VITAMIN B 2019-0 Yes Take by Unive rs COMPLEX 3-28 mouth. ity of ORAL 16:11: [address] Branch VITAMIN B 2019-0 Yes Take by Unive rs COMPLEX 3-28 mouth. ity of ORAL 16:11: [address] VITAMIN B 2019-0 Yes Take by Unive rs COMPLEX 3-28 mouth. ity of ORAL 16:11: [address] VITAMIN B 2019-0 Yes Take by Unive rs COMPLEX 3-28 mouth. ity of ORAL 16:11: [address] amlodipine 2019-0 No 1mg 5 mg [...] 00:00: orothiazide 00 12.5 mg tablet amlodipine 2017-1 No 1mg 10 mg 0-15 tablet 00:00: [...] 8-15 tablet 00:00: 00 cyclobenzap 2018-0 Yes [id number] Bid prn Univers rine 10 mg 8-02 ity of tablet 00:00: [address] Branch cyclobenzap 2018-0 Yes [id number] Bid prn [facility] rine 10 mg 8-02 ity of tablet 00:00: [address] Branch cyclobenzap 2018-0 Yes [id number] Bid prn [facility] rine 10 mg 8-02 ity of tablet 00:00: [address] Branch cyclobenzap 2018-0 Yes [id number] Bid prn [facility] rine 10 mg 8-02 ity of tablet 00:00: [address] Branch cyclobenzap 2018-0 Yes [id number] Bid prn [facility] rine 10 mg 8-02 ity of tablet 00:00: [address] Branch cyclobenzap 2018-0 Yes [id number] Bid prn Univers rine 10 mg 8-02 ity of tablet 00:00: [address] cyclobenzap 2018-0 Yes [id number] Bid prn [facility] rine 10 mg 8-02 ity of tablet 00:00: [address] cyclobenzap 2018-0 Yes [id number] Bid prn [facility] rine 10 mg 8-02 ity of tablet 00:00: [address] Branch cyclobenzap 2018-0 Yes [id number] Bid prn [facility] rine 10 mg 8-02 ity of tablet 00:00: [place] 00 Medical Branch cyclobenzap 2018-0 Yes [id number] Bid prn [facility] rine 10 mg 04-01 ity of tablet 00:00: [place] 00 Medical Branch cyclobenzap 2018-0 2020- No [id number] Bid prn [facility] rine 10 mg 04-01 ity of tablet 00:00: 00:00 [place] 00 :00 Medical Branch cyclobenzap 2018-0 2020- No [id number] Bid prn [facility] rine 10 mg 04-01 ity of tablet 00:00: 00:00 [place] 00 :00 Medical Branch cyclobenzap 2018-0 2020- No [id number] Bid prn [facility] rine 10 mg 04-01 ity of tablet 00:00: 00:00 [place] 00 :00 Medical Branch amlodipine 2018-0 No [...] 5-19 capsule 00:00: 00 DULoxetine 2016-0 Yes [id number] Reynold sey HCl 30 MG 3-16 Seybold oral 00:00: - Capsule 00 Externa Delayed l Release Sprinkle hydrOXYzine 2016-0 Yes [id number] Ke lsey HCl 25 MG 3-16 [place] oral Tablet 00:00: - 00 Externa l DULoxetine 2016-0 Yes [id number] Reynold sey HCl 30 MG 3-16 [place] oral 00:00: - Capsule 00 Externa Delayed l Release Sprinkle hydrOXYzine 2016-0 Yes [id number] Ke lsey HCl 25 MG 3-16 [place] oral Tablet 00:00: - 00 Externa l DULoxetine 2016-0 Yes Jelena HCl 30 MG 3-16 [place] oral 00:00: - Capsule 00 Externa Delayed l Release Sprinkle hydrOXYzine 2016-0 Yes Jelena HCl 25 MG 3-16 [place] oral Tablet 00:00: - 00 Externa l DULoxetine 2016-0 Yes [id number] Reynold sey HCl 30 MG 3-16 [place] oral 00:00: - Capsule 00 Externa Delayed l Release Sprinkle hydrOXYzine 2016-0 Yes [id number] Ke lsey HCl 25 MG 3-16 [place] oral Tablet 00:00: - 00 Externa l DULoxetine 2016-0 Yes [id number] Reynold sey HCl 30 MG 3-16 [place] oral 00:00: - Capsule 00 Externa Delayed l Release Sprinkle hydrOXYzine 2016-0 Yes [id number] Ke lsey HCl 25 MG 3-16 [place] oral Tablet 00:00: - 00 Externa l DULoxetine 2016-0 Yes [id number] Reynold sey HCl 30 MG 3-16 [place] oral 00:00: - Capsule 00 Externa Delayed l Release Sprinkle hydrOXYzine 2016-0 Yes [id number] Ke lsey HCl 25 MG 3-16 [place] oral Tablet 00:00: - 00 Externa l DULoxetine 2016-0 2023- No [id number] Ke lsey HCl 30 MG -16 24 [place] oral 00:00: 00:00 - Capsule 00 :00 Externa Delayed l Release Sprinkle hydrOXYzine 3- No [id number] K elsey HCl 25 MG 3-16 24 [place] oral Tablet 00:00: 00:00 - 00 [...] Protein, Pf Covid-19 Vaccine 2021-09-07 Completed Jelena shahjuan antonio Moderna (Spikevax), 00:00:00 - Ext ernal Mrna-lnp, [place] Protein, Pf Covid-19 Vaccine 2021-09-07 Completed Jelena shahjuan antonio Moderna (Spikevax), 00:00:00 - Ext ernal Mrna-lnp, [place] Protein, Pf Covid-19 Vaccine 2021-09-07 Completed Jelena alyssajuan antonio Moderna (Spikevax), 00:00:00 - Ext ernal Mrna-lnp, [place] Protein, Pf Covid-19 Vaccine 2021-09-07 Completed Jelena shahjuan antonio Moderna (Spikevax), 00:00:00 - Ext ernal Mrna-lnp, [place] Protein, Pf Covid-19 Vaccine 2021-09-07 Completed Jelena Leeroy alyssajuan antonio Moderna (Spikevax), 00:00:00 - Ext ernal Mrna-lnp, [place] Protein, Pf Covid-19 Vaccine 2021-09-07 Completed Jelena shahjuan antonio Moderna (Spikevax), 00:00:00 - Ext ernal Mrna-lnp, [place] Protein, Pf Covid-19 Vaccine 2021-09-07 Completed Jelena shahjuan antonio Moderna (Spikevax), 00:00:00 - Ext ernal Mrna-lnp, [place] Protein, Pf Covid-19 Vaccine 2021-09-07 Completed Jelena Leeroy alyssajuan antonio Moderna (Spikevax), 00:00:00 - Ext [...] - Externa l Pneumococcal Vaccine, 2009-04-17 Completed Reyonld sey Seybold Conjugate 7 00:00:00 - External [...] - External Hepatitis A 2009-04-17 Completed Jelena Paiz d 00:00:00 - External Hepatitis A 2009-04-17 [...] - External Pneumococcal Vaccine, 2009-04-17 Completed Reynold guevaray Seybold [...] Completed Jelena Seyb old Mcv4,unspecified 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 Hepatitis A 2008-02-18 Completed Jelena Seybol d 00:00:00 - External HPV 4 (Human 2008-02-18 Completed Jelena Seybo ld Papillomavirus) 00:00:00 - Externa l Meningococcal 2008-02-18 Completed Jelena Seyb old Mcv4,unspecified 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 Hepatitis A 2008-02-18 Completed Jelena Seybol d 00:00:00 - External HPV 4 (Human 2008-02-18 Completed Jelnea Seybo ld Papillomavirus) 00:00:00 - Externa l Meningococcal 2008-02-18 Completed Jelena Seyb old Mcv4,unspecified 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 Hepatitis A 2008-02-18 Completed Jelena Seybol d 00:00:00 - External HPV 4 (Human 2008-02-18 Completed Jelena Seybo ld Papillomavirus) 00:00:00 - Externa l Meningococcal 2008-02-18 Completed Jelena Seyb old Mcv4,unspecified 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 Hepatitis A 2008-02-18 Completed Jelena Seybol d 00:00:00 - External Hepatitis A 2008-02-18 Completed Jelena Seybol d 00:00:00 - External HPV 4 (Human 2008-02-18 Completed Jelena Seybo ld Papillomavirus) 00:00:00 - Externa l Meningococcal 2008-02-18 Completed Jelena Seyb old Mcv4,unspecified 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 Hepatitis A 2008-02-18 Completed Jelena Seybol d 00:00:00 - External HPV 4 (Human 2008-02-18 Completed Jelena Seybo ld Papillomavirus) 00:00:00 - Externa l Meningococcal 2008-02-18 Completed Jelena Seyb old Mcv4,unspecified 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 HPV 4 (Human 2008-02-18 Completed Jelena Seybo ld Papillomavirus) 00:00:00 - Externa l Meningococcal 2008-02-18 Completed Jelena Seyb old Mcv4,unspecified 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 Hepatitis A 2008-02-18 Completed Jelena Seybol d 00:00:00 - External HPV 4 (Human 2008-02-18 Completed Jelena Seybo ld Papillomavirus) 00:00:00 - Externa l Meningococcal 2008-02-18 Completed Jelena Seyb old Mcv4,unspecified 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 Hepatitis A 2008-02-18 Completed Jelena Seybol d 00:00:00 - External HPV 4 (Human 2008-02-18 Completed Jelena Seybo ld Papillomavirus) 00:00:00 - Externa l Meningococcal 2008-02-18 Completed Jelena Seyb old Mcv4,unspecified 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 Hepatitis A 2008-02-18 Completed Jelena Seybol d 00:00:00 - External HPV 4 (Human 2008-02-18 Completed Jelena Seybo ld Papillomavirus) 00:00:00 - Externa l Meningococcal 2008-02-18 Completed Jelena Seyb old Mcv4,unspecified 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 Hepatitis A 2008-02-18 Completed Jelena Seybol d 00:00:00 - External HPV 4 (Human 2008-02-18 Completed Jelena Seybo ld Papillomavirus) 00:00:00 - Externa l Meningococcal 2008-02-18 Completed Jelena Seyb old Mcv4,unspecified 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 Hepatitis A 2008-02-18 Completed Jelena Seybol d 00:00:00 - External HPV 4 (Human 2008-02-18 Completed Jelena Seybo ld Papillomavirus) 00:00:00 - Externa l Meningococcal 2008-02-18 Completed Jelena Seyb old Mcv4,unspecified 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 Hepatitis A 2008-02-18 Completed Jelena Seybol d 00:00:00 - External HPV 4 (Human 2008-02-18 Completed Jelena Seybo ld Papillomavirus) 00:00:00 - Externa l Meningococcal 2008-02-18 Completed Jelena Seyb old Mcv4,unspecified 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 Hepatitis A 2008-02-18 Completed Jelena Seybol d 00:00:00 - External HPV 4 (Human 2008-02-18 Completed Jelena Seybo ld Papillomavirus) 00:00:00 - Externa l Meningococcal 2008-02-18 Completed Jelena Seyb old Mcv4,unspecified 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 Td (adult), 2 Lf 2006-05-25 [...] 2002-04-21 Completed Jelena Guevaraybold 00:00:00 - External HIB- Haemophilus 1997-05-31 Completed [...] 00:00:00 - External DTP- 1997-04-05 Completed Jelena Ibrhaim Diphtheria,Tetanus,Pe 00:00:00 - E xternal rtussis OPV- Oral Polio 1997-04-05 Completed Jelena Guevara ybold Vaccine 00:00:00 - External DTP- 1997-04-05 Completed Jelena Ibrahim Diphtheria,Tetanus,Pe 00:00:00 - E xternal rtussis OPV- Oral Polio 1997-04-05 Completed Jelena Guevara ybold Vaccine 00:00:00 - External DTP- 1996-08-05 Completed Jelena Seybold Diphtheria,Tetanus,Pe 00:00:00 - E xternal rtussis HIB- [...] xternal rtussis OPV- Oral Polio 1993 Completed Jelnea Guevara ybold Vaccine 00:00:00 - External DTP- [...] xternal rtussis Hepatitis B, 1993 Completed Jelena nolsaco Unspecified 00:00:00 - External OPV- Oral Polio [...] - External OPV- Oral Polio 1993 Completed Jleena Guevara [...] External OPV- Oral Polio 1993 Completed Jelena henley Vaccine 00:00:00 - External HIB- Haemophilus 1993 [...] - External HIB- Haemophilus Unknown Completed Jelena S eybold Influenzae Type B - Exter nal HIB- Haemophilus Unknown Completed [facility] Influenzae Type B - Exter nal HIB- Haemophilus Unknown Completed [facility] Influenzae Type B - Exter nal HIB- Haemophilus Unknown Completed [facility] Influenzae Type B - Exter nal HPV 4 (Human Unknown [facility] - Externa l HPV 4 (Human Unknown Com[facility] - Externa l HPV 4 (Human Unknown Completed [facility] Papillomavirus) - Externa l Meningococcal Unknown Completed J[facility] Mcv4,unspecified - 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 MMR- Measles, Mumps, Unknown Completed [facility] Rubella - External MMR- Measles, Mumps, Unknown Completed [facility] Rubella - External Pneumococcal Vaccine, Unknown Completed [facility] Conjugate 7 - External Pneumococcal Vaccine, Unknown Completed Reynold marcel Polysaccharide - External OPV- Oral Polio Unknown Completed [facility] kale Vaccine - External OPV- Oral Polio [facility]- Oral Polio [facility] - External OPV- Oral Polio Unknown Completed [facility] kale Vaccine - External Td (adult), 2 Lf Unknown Completed [facility] tetanus toxoid, - Externa l preservative free, adsorbed Tdap- (Boostrix, Unknown Completed [facility] - External Varicella Vaccine Unknown Com[facility] - External COVID-19 BIVALENT Unknown Completed [facility] VACCINE MODERNA - Externa l Covid-19 Vaccine Unknown Completed [facility] Moderna (Spikevax), - Ext ernal Mrna-lnp, Bradley Protein, Pf Covid-19 Vaccine Unknown Completed [facility] Moderna (Spikevax), - Ext ernal Mrna-lnp, Bradley Protein, Pf DTaP Unspecified Unknown Completed [facility] - External DTP- Unknown Completed [facility] Diphtheria,Tetanus,Pe - E xternal rtussis DTP- Unknown Completed [facility] Diphtheria,Tetanus,Pe - E xternal rtussis DTP- Unknown Completed [facility] Diphtheria,Tetanus,Pe - E xternal rtussis DTP- Unknown Com[facility] Diphtheria,Tetanus,Pe - E xternal rtussis DTP- Unknown Com[facility] Diphtheria,Tetanus,Pe - E xternal rtussis Hepatitis A Unknown Com[facility] Hepatitis A Unknown Com[facility] - External Hepatitis B, Unknown Com[facility] Un[facility] - External Hepatitis B, Unknown Com[facility] Unspecified - External Hepatitis B, Unknown Com[facility] Un[facility] - External HIB- [facility]emophilus Unknown [facility] Type [facility] - Exter nal HIB- Haemophilus Unknown [facility] Influ[facility] Type B - Exter nal HIB- Haemophilus Unknown Completed [facility] Influenzae Type B - Exter nal HIB- Haemophilus Unknown Completed [facility] Influenzae Type B - Exter nal HPV 4 (Human Unknown Com[facility] - Externa l HPV 4 (Human Unknown Completed [facility] Papillomavirus) - Externa l HPV 4 (Human Unknown Completed [facility] Papillomavirus) - Externa l Meningococcal Unknown Com[facility] Mcv[facility],unspecified - 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 MMR- Measles, Mumps, Unknown Completed [facility] Rubella - External MMR- Measles, Mumps, Unknown Completed [facility] Rubella - External Pneumococcal Vaccine, Unknown Completed [facility] Conjugate 7 - External Pneumococcal Vaccine, Unknown Completed [facility] Polysaccharide - External OPV- Oral Polio Unknown Completed [facility] Vaccine - External OPV- Oral Polio Unknown Completed [facility] Vaccine - External OPV- Oral Polio Unknown Completed [facility] Vaccine - External OPV- Oral Polio Unknown Completed [facility] Vaccine - External Td (adult), 2 Lf Unknown Completed [facility] tetanus toxoid, - Externa l preservative free, adsorbed Tdap- (Boostrix, Unknown Completed [facility] Adacel) - External Varicella Vaccine Unknown Completed Jelena [facility] - External COVID-19 BIVALENT Unknown Completed [facility] VACCINE MODERNA - Externa l Covid-19 Vaccine Unknown Completed [facility] Moderna (Spikevax), - Ext ernal Mrna-lnp, Bradley Protein, Pf Covid-19 Vaccine Unknown Completed Jelena delgadoconstance Moderna (Spikevax), - Ext ernal Mrna-lnp, Bradley Protein, Pf DTaP Unspecified Unknown Completed Jelena Umaña alyssabold - External DTP- Unknown Completed Jelena Guevarakale [...] d - External Hepatitis A Unknown Completed Jelenalit Paiz d - External Hepatitis B, Unknown Completed Jelena nolasco Unspecified - External Hepatitis B, Unknown Completed Jelena nolasco Unspecified - External Hepatitis B, Unknown Completed Jelena nolasco Unspecified - External HIB- Haemophilus Unknown Completed Jelena Leeroy paty Influenzae Type B - Exter nal HIB- Haemophilus Unknown Completed Jelena S alyssajuan antonio Influenzae Type B - Exter nal HIB- Haemophilus Unknown Completed [facility] eybold Influenzae Type B - Exter nal HIB- Haemophilus Unknown Completed [facility] eybo Influenzae Type B - Exter nal HPV 4 (Human Unknown Completed Jelena nolasco Papillomavirus) - Externa l HPV 4 (Human Unknown Completed Jelena nolasco Papillomavirus) - Externa l HPV 4 (Human Unknown Completed Jelena Gabi nolasco Papillomavirus) - Externa l Meningococcal Unknown Completed Jelenalit rdo Mcv4,unspecified - 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 MMR- Measles, Mumps, Unknown Completed [...] External OPV- Oral Polio Unknown Completed Jelena allenmarcel Vaccine - External Td (adult), 2 Lf Unknown Completed Jelena newman tetanus toxoid, - Externa l preservative free, adsorbed Tdap- (Boostrix, Unknown Completed Jelena Umaña paty Adacel) - External Varicella Vaccine Unknown Completed Jelenalit Ibrahim - External COVID-19 BIVALENT Unknown Completed Jelenalit Ibrahim VACCINE MODERNA - Externa l Covid-19 Vaccine Unknown Completed Jelenalit newman Moderna (Spikevax), - Ext ernal Mrna-lnp, Bradley Protein, Pf Covid-19 Vaccine Unknown Completed Jelena alyssaconstance Moderna (Spikevax), - Ext ernal Mrna-lnp, Bradley Protein, Pf Influenza, Unknown Completed Jelena Ibrahim Injectable, Mdck, - Exter nal Quadrivalent With Preservative Pneumococcal Unknown Completed Jelena nolasco Conjugate 15 - External (Vaxneuvance) DTaP Unspecified Unknown Completed Jelena newman - External DTP- Unknown Completed Jelena Ibrahim Diphtheria,Tetanus,Pe - E xternal rtussis DTP- Unknown Completed Jelena Ibrahim Diphtheria,Tetanus,Pe - E xternal rtussis DTP- Unknown Completed Jelena Ibrahim Diphtheria,Tetanus,Pe - E xternal rtussis DTP- Unknown Completed Jelena Ibrahim Diphtheria,Tetanus,Pe - E xternal rtussis DTP- Unknown Completed Jelena Ibrahim Diphtheria,Tetanus,Pe - E xternal rtussis Hepatitis A Unknown Completed Jelena mayorga - External Hepatitis A Unknown Completed Jelena mayorga - External Hepatitis B, Unknown Completed Jelena nolasco Unspecified - External Hepatitis B, Unknown Completed Jelena nolasco Unspecified - External Hepatitis B, Unknown Completed Jelena nolasco Unspecified - External HIB- Haemophilus Unknown Completed Jelena newman Influenzae Type B - Exter nal HIB- Haemophilus Unknown Completed Jeelna newman Influenzae Type B - Exter nal HIB- Haemophilus Unknown Completed Jelena newman Influenzae Type B - Exter nal HIB- Haemophilus Unknown Completed Jelena newman Influenzae Type B - Exter nal HPV 4 (Human Unknown Completed Jelena nolasco Papillomavirus) - Externa l HPV 4 (Human Unknown Completed Jelena Ashley constance Papillomavirus) - Externa l HPV 4 (Human Unknown Completed Jelena Ashley constance Papillomavirus) - Externa l Meningococcal Unknown Completed Jelena rod Mcv4,unspecified - 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 MMR- Measles, Mumps, Unknown Completed [...] - Ext ernal Mrna-lnp, Bradley Protein, Pf Influenza, Unknown Completed Jelena Ibrahim Injectable, Mdck, - Exter nal Quadrivalent With Preservative Pneumococcal Unknown Completed Jelena Ashley constance Conjugate 15 - External (Vaxneuvance) Vital Signs Vital Name Observation Time Observation Value Comments Source Systolic blood 2023-07-27 17:05:00 116 mm[Hg] Jelena Patrice - pressure External Diastolic blood 2023-07-27 17:05:00 70 mm[Hg] Reynold emmy Eatonmarcel - pressure External Heart rate 2023-07-27 17:05:00 80 /min Jelena newman - External Body height 2023-07-27 17:05:00 160 cm Jelena newman - External Body weight 2023-07-27 17:05:00 135.626 kg pt reported Jelena Umaña eybold - External BMI 2023-07-27 17:05:00 52.97 kg/m2 Jelena S eybold - External Systolic blood 2023-07-24 14:03:00 134 mm[Hg] Jelena Seybold - pressure External Diastolic blood 2023-07-24 14:03:00 75 mm[Hg] Reynoldse y Seybold - pressure External Heart rate 2023-07-24 14:03:00 76 /min Jelena Umaña eybold - External Body temperature 2023-07-24 14:03:00 36.78 Mera Ashlie ey Seybold - External Respiratory rate 2023-07-24 14:03:00 18 /min Ashlie ey Seybold - External Body height 2023-07-24 14:03:00 160 cm Jelena Umaña eybold - External Body weight 2023-07-24 14:03:00 135.626 kg Jelena Umaña eybold - External BMI 2023-07-24 14:03:00 52.97 kg/m2 Jelena Umaña eybold - External Oxygen saturation 2023-07-24 14:03:00 94 /min Reynold Ibrahim - in Arterial blood External by Pulse oximetry Systolic blood 2023-07-01 16:21:00 178 mm[Hg] Jelena Seybold - pressure External Diastolic blood 2023-07-01 16:21:00 79 mm[Hg] Beth booth Seybold - pressure External Heart rate 2023-07-01 16:21:00 70 /min Jelena Umaña eybold - External Body temperature 2023-07-01 16:21:00 36.72 Mera Ashlie ey Seybold - External Respiratory rate 2023-07-01 16:21:00 16 /min Ashlie shah Seybold - External Body height 2023-07-01 16:21:00 160 cm Jelena Umaña eybold - External Body weight 2023-07-01 16:21:00 135.626 kg Jelena Umaña eybold - External BMI 2023-07-01 16:21:00 52.97 kg/m2 Jelena Umaña eybold - External Systolic blood 2023-06-26 18:00:00 145 mm[Hg] Mart mcleod of pressure [facility] Diastolic blood 2023-06-26 18:00:00 113 mm[Hg] Unive rsity of pressure [facility] Heart rate 2023-06-26 18:00:00 78 /min Universi ty [facility] Body temperature 2023-06-26 18:00:00 37 Mera Univ ersity of [facility] Respiratory rate 2023-06-26 18:00:00 19 /min Univ ersity of [facility] Oxygen saturation 2023-06-26 18:00:00 97 /min Uni versity of in Arterial blood [facility] by Pulse oximetry Branch Body height 2023-06-26 16:11:00 160 cm Universi ty [facility] Body weight 2023-06-26 16:11:00 129.275 kg Universi [facility] BMI 2023-06-26 16:11:00 50.49 [facility]m2 [facility] Heart rate 2023-05-28 15:30:00 64 /min [...] Diastolic blood 2023-05-06 15:25:00 85 mm[Hg] Beth booth Setiffanyold - pressure External Heart rate 2023-05-06 15:25:00 [...] Jelena Umaña eybold - External Oxygen saturation 2023-04-24 13:49:00 96 /min Reynold Ibrahim - in Arterial blood External by Pulse oximetry HEIGHT 2023-04-16 11:02:00 160 cm [...] Jelena Umaña eybold - External Oxygen saturation 2022-12-22 14:00:00 97 /min Reynold Ibrahim - in Arterial blood External by Pulse oximetry Body height 2022-12-08 15:56:00 160 [...] kg/m2 Jelena shahboconstance - External Oxygen saturation 2022-09-09 14:45:00 99 /min Reynold Ibrahim - in Arterial blood External by Pulse oximetry Systolic blood 2020-09-07 15:09:00 126 mm[Hg] Univer sity of pressure [facility] Diastolic blood 2020-09-07 15:09:00 88 mm[Hg] Unive rsity of pressure [facility] Heart rate 2020-09-07 15:09:00 76 /min Universi ty [facility] Body height 2020-09-07 15:09:00 160 cm [facility]i ty [facility] Body weight 2020-09-07 15:09:00 114.306 kg [facility] BMI 2020-09-07 15:09:00 44.64 kg/m2 [facility] Systolic blood 2020-09-07 15:09:00 126 mm[Hg] Univer sity of pressure [facility] Diastolic blood 2020-09-07 15:09:00 88 mm[Hg] Unive rsity of pressure [facility] Heart rate 2020-09-07 15:09:00 76 /min [facility]i [facility] Body height 2020-09-07 15:09:00 160 cm [facility] Body weight 2020-09-07 15:09:00 114.306 kg [facility] BMI 2020-09-07 15:09:00 44.64 kg/m2 [facility] Respiratory rate 2020-08-02 16:44:00 20 /min Univ ersity of [facility] Body height 2020-08-02 16:44:00 160 cm [facility] Body weight 2020-08-02 16:44:00 114.352 kg [facility] BMI 2020-08-02 16:44:00 44.66 kg/m2 [facility] Systolic blood 2020-08-02 16:44:00 113 mm[Hg] Univer sity of pressure [facility] Diastolic blood 2020-08-02 16:44:00 66 mm[Hg] Unive rsity of pressure [facility] Heart rate 2020-08-02 16:44:00 76 /min Universi ty [facility] Body temperature 2020-08-02 16:44:00 36 Mera Univ ersity of [facility] Systolic blood 2020-05-17 16:06:00 125 mm[Hg] Univer sity of pressure [facility] Diastolic blood 2020-05-17 16:06:00 76 mm[Hg] Unive rsity of pressure [facility] Heart rate 2020-05-17 16:06:00 93 /min [facility]i ty [facility] Body temperature 2020-05-17 16:06:00 36.44 Mera Univ ersity of [facility] Respiratory rate 2020-05-17 16:06:00 18 /min Univ ersity of [facility] Body height 2020-05-17 16:06:00 160 cm [facility]i ty [facility] Body weight 2020-05-17 16:06:00 105.688 kg Universi ty [facility] BMI 2020-05-17 16:06:00 41.27 kg/m2 [facility] Systolic blood 2020-03-08 15:04:00 108 mm[Hg] Univer sity of pressure [facility] Diastolic blood 2020-03-08 15:04:00 69 mm[Hg] Unive rsity of pressure [facility] Heart rate 2020-03-08 15:04:00 74 /min [facility]i ty [facility] Body temperature 2020-03-08 15:04:00 36.61 Mera Univ ersity of [facility] Respiratory rate 2020-03-08 15:04:00 20 /min Univ ersity of [facility] Body height 2020-03-08 15:04:00 160 cm Universi ty [facility] Body weight 2020-03-08 15:04:00 112.583 kg Univers[facility] ty [facility] BMI 2020-03-08 15:04:00 43.97 kg/m2 [facility] Systolic blood 2019-10-25 14:56:00 128 mm[Hg] Univer sity of pressure [facility] Diastolic blood 2019-10-25 14:56:00 92 mm[Hg] Unive rsity of pressure [facility] Heart rate 2019-10-25 14:56:00 72 /min [facility]i [facility] Body temperature 2019-10-25 14:56:00 36.67 Mera Univ ersity of [facility] Body height 2019-10-25 14:56:00 160 cm [facility] Body weight 2019-10-25 14:56:00 110.904 kg [facility] BMI 2019-10-25 14:56:00 43.31 kg/m2 [facility] Oxygen saturation 2019-10-25 14:56:00 99 /min Uni versity of in Arterial blood [place] [facility] Pulse oximetry [facility] Systolic blood 2019-10-24 17:13:00 120 mm[Hg] Univer sity of pressure [facility] Diastolic blood 2019-10-24 17:13:00 81 mm[Hg] Unive rsity of pressure [facility] Heart rate 2019-10-24 17:13:00 75 /min [facility]i ty [facility] Respiratory rate 2019-10-24 17:13:00 19 /min Univ ersity of [facility] Body height 2019-10-24 17:13:00 160 cm [facility]i ty [facility] Body weight 2019-10-24 17:13:00 110.133 kg [facility] BMI 2019-10-24 17:13:00 43.01 kg/m2 [facility] Oxygen saturation 2019-10-24 17:13:00 99 /min Uni versity of in Arterial blood [place] [facility] by Pulse oximetry [facility] Systolic blood 2019-09-29 16:38:00 93 mm[Hg] Univer sity of pressure [facility] Diastolic blood 2019-09-29 16:38:00 64 mm[Hg] Unive rsity of pressure [facility] Heart rate 2019-09-29 16:38:00 77 /min [facility]i ty [facility] Body temperature 2019-09-29 16:38:00 36.5 Mera Univ ersity of [facility] Respiratory rate 2019-09-29 16:38:00 20 /min Univ ersity of [facility] Body height 2019-09-29 16:38:00 160 cm [facility] Body weight 2019-09-29 16:38:00 109.77 kg Universi [facility] BMI 2019-09-29 16:38:00 42.87 kg/m2 Universi [facility] Systolic blood 2019-04-28 14:39:00 105 mm[Hg] Univer sity of [facility] Diastolic blood 2019-04-28 14:39:00 62 mm[Hg] Unive rsity of [facility] Heart rate 2019-04-28 14:39:00 87 /[facility] Body temperature 2019-04-28 14:39:00 [facility].94 [facility] 2019-04-28 14:39:00 18 /min [facility] Body height 2019-04-28 14:39:[address] Body weight 2019-04-28 14:39:00 123.832 kg [facility] BMI 2019-04-28 14:39:00 48.36 kg/m2 [facility] Systolic blood 2023-04-16 15:02:00 149 mm[Hg] [facility] Diastolic blood 2023-04-16 15:02:00 86 mm[Hg] [facility] Heart rate 2023-04-16 15:02:00 68 /min [facility] Body temperature 2023-04-16 15:02:00 36.67 Mera [facility] Respiratory rate 2023-04-16 15:02:00 17 /min [facility] Oxygen saturation 2023-04-16 15:02:00 98 /min [facility] in Arterial blood Medical Ce nter by Pulse oximetry Body height 2023-04-16 11:02:00 160 cm [facility] Body weight 2023-04-16 11:02:00 123.378 kg [facility] BMI 2023-04-16 11:02:00 48.18 kg/m2 [facility] BP Systolic 2022-09-10 11:46:00 [...] COMP. METABOLIC PANEL 2023-06-26 16:39:00 Sylvester Hutchinson [facility] ([id number]) Medical Branch CBC WITH DIFF 2023-06-26 16:39:00 Sylvester Hutchinson [place] [facility] CONSENT/REFUSAL FOR 2023-06-26 16:18:39 Doctor Unassigned, [facility] DIAGNOSIS AND TREATMENT [facility] BRAIN WITHOUT IV 2023-04-16 12:20:30 Rachel Rangel [facility] CONTRAST [facility] [place] URINALYSIS W/ REFLEX 2023-04-16 11:53:00 [facility] URINE CULTURE [facility] RAPID DRUG SCREEN, URINE 2023-04-16 11:53:00 [facility] [place] [facility] W/PLT COUNT & AUTO 2023-04-16 11:30:00 Avnishayy [facility] DIFFERENTIAL [facility] COMPREHENSIVE METABOLIC 2023-04-16 11:30:00 [facility] PANEL [facility] PROTHROMBIN TIME/INR 2023-04-16 11:30:00 [facility] TROPONIN I 2023-04-16 11:30:00 [facility] MANUAL DIFFERENTIAL 2023-04-16 11:30:00 [facility] [place] CBC W/PLT COUNT & AUTO 2023-04-16 11:30:00 Avnishayy [facility] DIFFERENTIAL [facility] EKG-SCANNED 2023-04-16 00:00:00 Provider [facility] REFERRAL- 2020-09-27 06:01:00 Doctor Lucina, [facility] REQUEST/RESPONSE [facility] MR KNEE LEFT WO CONTRAST 2020-08-20 18:12:04 Alexandre Delgado [facility] [place] NOTICE OF PRIVACY 2020-08-02 06:01:00 Doctor Lucina, [facility] PRACTICES [facility] AGREEMENTS AUTHORIZATIONS 2020-08-02 06:01:00 Doctor Lucina, [place] [facility] AND [facility]OC[facility] ASSIGNMENTS (FORM 2001) VACCINATIONS - CONSENTS, 2020-05-17 05:01:00 Doctor Verdugo, [facility] ELIGIBILITY, HISTORY [facility] XR KNEE 3 VW LEFT 2020-03-16 13:13:36 Alexandre Delgado [facility] [place] SCANNED LAB RESULTS 2020-03-08 05:01:00 Doctor Verdugo, [facility] ASSIGNMENT OF BENEFITS 2020-02-10 13:57:41 [facility] - PRESCRIPTION / 2019-09-08 06:01:00 Doctor Unassigned, [facility] ORDER [facility] AGREEMENTS AUTHORIZATIONS 2019-04-28 05:01:00 Doctor Unassigned, [facility] AND IRREVOCABLE [facility] ASSIGNMENTS (FORM 2001) 58465 Ecg Routine Ecg 2018-06-14 00:00:00 W/least 12 [facility] [code = Influenza Vaccine [facility] (#1)] Future Scheduled 2023-05-01 Influenza [...] [facility] 00:00:00 Moderna series) [code = [facility] COVID-19 VACCINE (3 - Moderna series)] Future Scheduled 2021-12-14 COVID-19 VACCINE (3 [facility] 00:[facility]00 Moderna series) [code = [facility] COVID-19 VACCINE (3 - Moderna series)] Future Scheduled 2021-12-14 COVID-19 VACCINE (3 [facility] 00:00:00 Moderna series) [code = [facility] COVID-19 VACCINE (3 - Moderna series)] [...] [facility] 00:00:00 Moderna series) [code = [facility] COVID-19 VACCINE (3 - Moderna series)] Future Scheduled 2014 Screening for malignant [facility] 00:00:00 neoplasm of cervix Medical C enter (procedure) [code = 981405061] Future Scheduled 2014 Screening for malignant [facility] 00:00:00 neoplasm of cervix Medical C enter (procedure) [code = 979734140] Future Scheduled 2014 Screening for malignant [facility] 00:00:00 neoplasm of cervix Medical C enter (procedure) [code = 814115214] Future Scheduled 2014 Screening for malignant [facility] 00:00:00 neoplasm of cervix Medical C enter (procedure) [code = 232536931] Future Scheduled 2014 Screening for malignant [facility] 00:00:00 neoplasm of cervix Medical C enter (procedure) [code = 577347329] Future Scheduled 2014 Screening for malignant [facility] 00:00:00 neoplasm of cervix Medical C enter (procedure) [code = 365661881] Future Scheduled 2013 Lipid panel (procedure) [facility] 00:00:00 [code = 79169175] Medical Ce nter Future Scheduled 2013 Lipid panel (procedure) [facility] 00:00:00 [code = 82498451] Medical Ce nter Future Scheduled 2013 Lipid panel (procedure) [facility] 00:00:00 [code = 27291169] Medical Ce nter Future Scheduled 2013 Lipid panel (procedure) [facility] 00:00:00 [code = 25799369] Medical Ce nter Future Scheduled 2013 Lipid panel (procedure) [facility] 00:00:00 [code = 65087673] Medical Ce nter Future Scheduled 2013 Lipid panel (procedure) [facility] 00:00:00 [code = 25322364] Medical Ce nter Future Scheduled 2011 HEPATITIS [...] screening Medical Cent er (procedure) [code = 628830898] Future Scheduled [address] [facility] 00:[facility]00 virus screening [facility] (procedure) [code = 474683576] Future Scheduled [address] [facility] 00:[facility]:00 virus screening [facility] (procedure) [code = 331809034] Future Scheduled [address] [facility] 00:00:00 virus screening [facility] (procedure) [code = 037496825] Future Scheduled [address] [facility] 00:00:00 virus screening [facility] (procedure) [code = 884231100] Future Scheduled [address] [facility] 00:[facility] virus screening [facility] (procedure) [code = 239833265] Future Scheduled [address] [...] Goal Plan of Care Note [code = 25320-0] Goal Plan of Care Note [code = 41407-6] Goal Plan of Care Note [code = 97087-1] Goal Plan of Care Note [code = 50984-0] Goal Plan of Care Note [code = 12108-7] Goal Plan of Care Note [code = 13313-7] Goal Plan of Care Note [code = 86447-6] Goal Plan of Care Note [code = 13826-3] Goal Plan of Care Note [code = 60269-8] Goal Plan of Care Note [code = 24209-0] Goal Plan of Care Note [code = 34088-2] Goal Plan of Care Note [code = 39889-8] Goal Plan of Care Note [code = 04238-1] Goal Plan of Care Note [code = 69883-0] Goal Plan of Care Note [code = 78726-0] Goal Plan of Care Note [code = 40871-5] Goal Plan of Care Note [code = 19246-7] Goal Plan of Care Note [code = 47071-3] Goal Plan of Care Note [code = 14488-9] Goal Plan of Care Note [code = 37446-8] Goal Plan of Care Note [code = 78758-7] Goal Plan of Care Note [code = 99229-4] Goal Plan of Care Note [code = 33657-0] Goal Plan of Care Note [code = 46281-8] Goal Plan of Care Note [code = 07210-1] Goal Plan of Care Note [code = 77030-2] Goal Plan of Care Note [code = 86367-1] Goal Plan of Care Note [code = 48024-3] Goal Plan of Care Note [code = 86393-0] Goal Plan of Care Note [code = 04189-6] Goal Plan of Care Note [code = 57031-1] Goal Plan of Care Note [code = 75056-2] Goal Plan of Care Note [code = 08298-3] Goal Plan of Care Note [code = 26902-6] Goal Plan of Care Note [code = 70311-8] Goal Plan of Care Note [code = 76516-9] Goal Plan of Care Note [code = 44878-0] Goal Plan of Care Note [code = 46132-1] Goal Plan of Care Note [code = 31028-4] Goal Plan of Care Note [code = 85664-7] Goal Plan of Care Note [code = 53585-5] Goal Plan of Care Note [code = 05552-1] Goal Plan of Care Note [code = 41450-2] Goal Plan of Care Note [code = 95414-8] Goal Plan of Care Note [code = 05772-4] Goal Plan of Care Note [code = 62520-7] Goal Plan of Care Note [code = 88450-5] Goal Plan of Care Note [code = 21568-7] Goal Plan of Care Note [code = 62572-1] Goal Plan of Care Note [code = 52815-8] Goal Plan of Care Note [code = 22007-0] Goal Plan of Care Note [code = 54150-2] Goal Plan of Care Note [code = 46982-4] Goal Plan of Care Note [code = 96329-8] Goal Plan of Care Note [code = 60741-6] Goal Plan of Care Note [code = 70078-3] Goal Plan of Care Note [code = 78569-1] Goal Plan of Care Note [code = 55789-5] Goal Plan of Care Note [code = 02674-8] Goal Plan of Care Note [code = 66353-8] Goal Plan of Care Note [code = 35712-8] Goal Plan of Care Note [code = 36958-4] Goal Plan of Care Note [code = 28591-1] Goal Plan of Care Note [code = 04732-6] Goal Plan of Care Note [code = 78787-8] Goal Plan of Care Note [code = 46389-8] Goal Plan of Care Note [code = 04970-7] Goal Plan of Care Note [code = 49345-5] Goal Plan of Care Note [code = 90283-9] Goal Plan of Care Note [code = 46099-5] Goal Plan of Care Note [code = 97425-5] Goal Plan of Care Note [code = 38549-1] Goal Plan of Care Note [code = 44667-6] Goal Plan of Care Note [code = 61733-4] Goal Plan of Care Note [code = 48947-4] Goal Plan of Care Note [code = 91582-3] Goal Plan of Care Note [code = 02872-3] Goal Plan of Care Note [code = 38672-2] Goal Plan of Care Note [code = 92073-3] Goal Plan of Care Note [code = 07070-9] Goal Plan of Care Note [code = 24503-5] Goal Plan of Care Note [code = 41011-7] Goal Plan of Care Note [code = 48911-4] Goal Plan of Care Note [code = 79205-6] Goal Plan of Care Note [code = 67112-0] Goal Plan of Care Note [code = 66908-6] Goal Plan of Care Note [code = 47765-1] Goal Plan of Care Note [code = 34669-5] Goal Plan of Care Note [code = 00421-4] Goal Plan of Care Note [code = 95325-0] Goal Plan of Care Note [code = 06621-7] Goal Plan of Care Note [code = 13850-9] Goal Plan of Care Note [code = 65673-9] Goal Plan of Care Note [code = 84489-2] Goal Plan of Care Note [code = 08337-7] Goal Plan of Care Note [code = 56982-0] Goal Plan of Care Note [code = 85057-3] Goal Plan of Care Note [code = 58738-3] Goal Plan of Care Note [code = 31173-3] Goal Plan of Care Note [code = 01936-3] Goal Plan of Care Note [code = 63959-5] Goal Plan of Care Note [code = 29083-7] Goal Plan of Care Note [code = 22902-5] Goal Plan of Care Note [code = 07343-1] Goal Plan of Care Note [code = 64221-9] Goal Plan of Care Note [code = 16091-9] Goal Plan of Care Note [code = 50818-0] Goal Plan of Care Note [code = 55248-4] Goal Plan of Care Note [code = 56538-2] Encounters Start End Encounter Admission Attending Care Care Encounter Source Date/Time Date/Time Type Type Clinicians Facility Department ID 2023-11-17 2023-11-17 Outpatient JELENA VICK [id number] Jelena 09:00:00 09:00:00 DARLIN Seybo ld 2023-11-04 2023-11-04 Outpatient JELENA ESCAMILLA [id number] Jelena 10:30:00 10:30:00 TREVOR Seybo ld 2023-09-09 2023-09-09 Outpatient JELENA KIMBALL [id number] Jelena 08:45:00 08:45:00 LEI Seybo ld 2023-08-27 2023-08-27 Outpatient JELENA RAMON [id number] Jelena 10:00:00 10:00:00 TERRENCE Seybol d 2023-08-27 2023-08-27 Outpatient JELENA KNIGHT [id number] Jelena 10:00:00 10:00:00 Seybol d 2023-08-19 2023-08-19 Outpatient JELENA KNIGHT [id number] Jelena 09:00:00 09:00:00 Seybol d 2023-08-19 2023-08-19 Outpatient JELENA KNIGHT [id number] Jelena 08:00:00 08:00:00 Seybol d 2023-08-17 2023-08-17 Outpatient DORA WINN JELENA KNIGHT [id number] Jelena 10:45:00 10:45:00 Seybol d 2023-08-14 2023-08-14 Outpatient COOKIE JELENA KNIGHT [id number] Jelena 09:30:00 09:30:00 ROBYN Seybol d 2023-08-12 2023-08-12 Outpatient JELENA KNIGHT [id number] Jelena 11:30:00 11:30:00 Seybol d 2023-08-12 2023-08-12 Outpatient OU JELENA KNIGHT [id number] Jelena 10:30:00 10:30:00 SHIRLEY Seyb old 2023-08-10 2023-08-10 Outpatient JELENA KNIGHT [id number] Jelena 11:30:00 11:30:00 Seybol d 2023-08-10 2023-08-10 Outpatient JELENA WISDOM [id number] Jelena 11:00:00 11:00:00 SANDRA Seybol d 2023-07-29 2023-07-29 Outpatient COOKIE JELENA KNIGHT [id number] Jelena 00:00:00 00:00:00 ROBYN Seybol d 2023-07-27 2023-07-27 Outpatient JELENA RAMON [id number] Jelena 11:15:00 11:15:00 TERRENCE Seybol d 2023-07-26 2023-07-26 Outpatient JELENA GARY [id number] Jelena 00:00:00 00:00:00 ROBYN Seybol d 2023-07-24 2023-07-24 Outpatient LAB39 JELENA KNIGHT [id number] Jelena 08:55:00 08:55:00 Seybol d 2023-07-24 2023-07-24 Outpatient JELENA KIMBALL [id number] Jelena 08:15:00 08:15:00 LEI Seybo ld 2023-07-24 2023-07-24 Outpatient JELENA KIMBALL [id number] Jelena 08:15:00 08:15:00 LEI Seybo ld 2023-07-24 2023-07-24 Outpatient CATJELENA BRYANT [id number] Jelena 00:00:00 00:00:00 LEI Seybo ld 2023-07-24 2023-07-24 Outpatient COOKIE JELENA KNIGHT [id number] Jelena 00:00:00 00:00:00 ROBYN Seybol d 2023-07-19 2023-07-19 Outpatient COOKIE JELENA KNIGHT [id number] Jelena 00:00:00 00:00:00 ROBYN Seybol d 2023-07-16 2023-07-16 Outpatient JELENA KNIGHT [id number] Jelena 00:00:00 00:00:00 Seybol d 2023-07-15 2023-07-15 Outpatient [facility] [id number] Jarod 09:56:13 09:56:13 1115 F Lee 2023-07-15 2023-07-15 Outpatient JELENA KIMBALL [id number] Jelena 00:00:00 00:00:00 LEI Seybo ld 2023-07-15 2023-07-15 Outpatient PREZAJELENA Umaña [id number] Jelena 00:00:00 00:00:00 BYRON Seybol d 2023-07-15 2023-07-15 Outpatient JELENA KNIGHT [id number] Jelena 00:00:00 00:00:00 Seybol d 2023-07-14 2023-07-14 Outpatient RUSSELL KNIGHT [id number] Jelena 00:00:00 00:00:00 MD ANKITA Seybol d 2023-07-10 2023-07-10 Outpatient KANDI GROSS [id number] Jelena 11:30:00 11:30:00 Seybol d 2023-07-10 2023-07-10 Outpatient JELENA KIMBALL [id number] Jelena 10:00:00 10:00:00 LEI Seybo ld 2023-07-10 2023-07-10 Outpatient LAB90 JELENA KNIGHT [id number] Jelena 09:40:00 09:40:00 Seybol d 2023-07-10 2023-07-10 Outpatient JELENA KIMBALL JELENA [id number] Jelena 00:00:00 00:00:00 LEI Seybo ld 2023-07-09 2023-07-09 Outpatient JELENA GARY JELENA [id number] Jelena 00:00:00 00:00:00 ROBYN Seybol d 2023-07-03 2023-07-03 Outpatient COOKIE JELENA KNIGHT [id number] Jelena 00:00:00 00:00:00 ROBYN Seybol d 2023-07-02 2023-07-02 Outpatient COOKIE JELENA KNIGHT [id number] Jelena 08:00:00 08:00:00 ROBYN Seybol d 2023-07-02 2023-07-02 Outpatient JELENA GARY JELENA [id number] Jelena 00:00:00 00:00:00 ROBYN Seybol d 2023-07-01 2023-07-01 Outpatient JELENA KNIGHT [id number] Jelena 12:35:00 12:35:00 Seybol d 2023-07-01 2023-07-01 Outpatient REYNOLD KIMABLLLIT KNIGHT [id number] Jelena 11:45:00 11:45:00 LEI Seybo ld 2023-06-30 2023-06-30 Outpatient REYNOLD GARYLIT KNIGHT [id number] Jelena 13:00:00 13:00:00 ROBYN Seybol d 2023-06-30 2023-06-30 Outpatient DORA WINN [id number] Jelena 00:00:00 00:00:00 Seybol d 2023-06-29 2023-06-29 Outpatient COOKIE JELENA KNIGHT [id number] Jelena 00:00:00 00:00:00 ROBYN Seybol d 2023-06-27 2023-06-27 Outpatient JELENA ORNELAS [id number] Jelena 00:00:00 00:00:00 JUVENCIO Eatono ld 2023-06-26 2023-06-26 Emergency X [facility] [id number] [facility] 11:06:00 13:33:00 SYLVESTER arshad [facility] 2023-06-26 2023-06-26 Emergency Evangelina [facility] [id number] Univers 11:06:00 13:33:00 Sylvester CHRISTY [id number] i [facility] KIMJESSI [id number] [facility] [id number] [address] 2023-06-25 2023-06-25 Outpatient JELENA GARY [id number] Jelena 00:00:00 00:00:00 ROBYN Seybol d 2023-06-19 2023-06-19 Outpatient JELENA MALHOTRA [id number] Jelena 00:00:00 00:00:00 BYRON Seybol d 2023-06-19 2023-06-19 Outpatient JELENA MALHOTRA [id number] Jelena 00:00:00 00:00:00 BYRON Seybol d 2023-06-18 2023-06-18 Outpatient JELENA BRIONES [id number] Jelena 00:00:00 00:00:00 AHMED Seybol d 2023-06-07 2023-06-07 Outpatient JELENA GARY [id number] Jelena 00:00:00 00:00:00 ROBYN Seybol d 2023-06-02 2023-06-02 Outpatient JELENA GARY [id number] Jelena 00:00:00 00:00:00 ROBYN Seybol d 2023-06-01 2023-06-01 Outpatient RUSSELL KNIGHT [id number] Jelena 00:00:00 00:00:00 MD ANKITA Seybol d 2023-06-01 2023-06-01 Outpatient JELENA GARY [id number] Jelena 00:00:00 00:00:00 ROBYN Seybol d 2023-05-28 2023-05-28 Outpatient HQX131 JELENA KNIGHT [id number] Jelena 11:45:00 11:45:00 Seybol d 2023-05-28 2023-05-28 Outpatient DORA WINN [id number] Jelena 10:45:00 10:45:00 Seybol d 2023-05-20 2023-05-20 Outpatient ANSELMO JELENA KNIGHT [id number] Jelena 00:00:00 00:00:00 AHMED Seybol d 2023-05-17 2023-05-17 Outpatient COOKIE JELENA KNIGHT [id number] Jelena 00:00:00 00:00:00 ROBYN Seybol d 2023-05-15 2023-05-15 Outpatient SCHMIDTJELENA [id number] Jelena 00:00:00 00:00:00 JONN Seybol d 2023-05-14 2023-05-14 Outpatient ANGELOJELENA [id number] Jelena 10:15:00 10:15:00 LUKE Seybol d 2023-05-14 2023-05-14 Outpatient JELENA GARY [id number] Jelena 00:00:00 00:00:00 ROBYN Seybol d 2023-05-13 2023-05-13 Outpatient ANGELOJELENA [id number] Jelena 10:15:00 10:15:00 LUKE Seybol d 2023-05-13 2023-05-13 Outpatient PREZAS, JELENA KNIGHT [id number] Jelena 00:00:00 00:00:00 BYRON Seybol d 2023-05-12 2023-05-12 Outpatient GAURAV PURVIS JELENA KNIGHT [id number] Jelena 00:00:00 00:00:00 Seybol d 2023-05-12 2023-05-12 Outpatient FARIDAL, JELENA KNIGHT [id number] Jelena 00:00:00 00:00:00 ROBYN Seybol d 2023-05-11 2023-05-11 Outpatient FARIDALJELENA [id number] Jelena 09:00:00 09:00:00 ROBYN Seybol d 2023-05-06 2023-05-06 Outpatient LAB90 JELENA KNIGHT [id number] Jelena 11:20:00 11:20:00 Seybol d 2023-05-06 2023-05-06 Outpatient JELENA GARY [id number] Jelena 10:30:00 10:30:00 ROBYN Seybol d 2023-05-01 2023-05-01 Outpatient JELENA GARY [id number] Jelena 00:00:00 00:00:00 ROBYN Seybol d 2023-04-28 2023-04-28 Outpatient NAVAJELENA [id number] Jelena 09:00:00 09:00:00 DARLIN Eatono ld 2023-04-26 2023-04-26 Outpatient JELENA GARY [id number] Jelena 00:00:00 00:00:00 ROBYN Seybol d 2023-04-24 2023-04-24 Outpatient GAURAV PURVIS [id number] Jelena 09:00:00 09:00:00 Seybol d 2023-04-23 2023-04-23 Outpatient BLANCALORETTAJessica KNIGHT [id number] Jelena 00:00:00 00:00:00 MD ANKITA Seybol d 2023-04-20 2023-04-20 Outpatient GAURAV PURVIS [id number] Jelena 10:30:00 10:30:00 Seybol d 2023-04-20 2023-04-20 Outpatient JELENA BRIONES [id number] Jelena 00:00:00 00:00:00 AHMED Seybol d 2023-04-17 2023-04-17 Outpatient JELENA NEVAREZ [id number] Jelena 00:00:00 00:00:00 ANGELICA nolasco 2023-04-17 2023-04-17 Outpatient JELENA GARY [id number] Jelena 00:00:00 00:00:00 ROBYN Seybol d 2023-04-16 2023-04-16 [facility] Emergency [id number] [facility] 10:54:00 15:04:00 HURLEY 2023-04-16 2023-04-16 [id number] [facility] 10:54:00 15:04:00 [facility] 2023-04-16 2023-04-16 Emergency ER [facility] [id number] [facility] 10:54:00 15:04:00 [facility] 2023-04-16 2023-04-16 Emergency ER DENZEL, [facility] SLSL [id number] [facility] 12:07:04 12:07:04 RACHEL 2023-04-16 2023-04-16 Outpatient JELENA STOKES [id number] Jelena 10:30:00 10:30:00 SPENSER Seybol d 2023-04-16 2023-04-16 Outpatient JELENA WANG [id number] Jelena 00:00:00 00:00:00 KELSEY Seybol d 2023-04-13 2023-04-13 Outpatient GAURAV PURVIS [id number] Jelena 10:30:00 10:30:00 Seybol d 2023-03-25 2023-03-25 Outpatient GAURAV PURVIS [id number] Jelena 00:00:00 00:00:00 Seybol d 2023-03-23 2023-03-23 Outpatient GAURAV PURVIS [id number] Jelena 10:30:00 10:30:00 Seybol d 2023-03-19 2023-03-19 Outpatient JELENA GARY [id number] Jelena 00:00:00 00:00:00 ROBYN Seybol d 2023-03-18 2023-03-18 Outpatient JELENA MALHOTRA [id number] Jelena 00:00:00 00:00:00 BYRON Seybol d 2023-03-17 2023-03-17 Outpatient RUSSELL KNIGHT [id number] Jelena 00:00:00 00:00:00 MD ANKITA Seybol d 2023-03-16 2023-03-16 Outpatient JELENA GARY [id number] Jelena 00:00:00 00:00:00 ROBYN Seybol d 2023-03-11 2023-03-11 Outpatient JELENA BRIONES [id number] Jelena 11:15:00 11:15:00 AHMED Seybol d 2023-03-09 2023-03-09 Outpatient HUNDL, JELENA KNIGHT [id number] Jelena 00:00:00 00:00:00 ROBYN Seybol d 2023-03-05 2023-03-05 Outpatient ANSELMO JELENA KNIGHT [id number] Jelena 00:00:00 00:00:00 AHMED Seybol d 2023-03-02 2023-03-02 Outpatient HUNDL, JELENA KNIGHT [id number] Jelena 00:00:00 00:00:00 ROBYN Seybol d 2023-02-20 2023-02-20 Outpatient HUNDL, JELENA KNIGHT [id number] Jelena 00:00:00 00:00:00 ROBYN Seybol d 2023-02-20 2023-02-20 Outpatient HUNDL, JELENA KNIGHT [id number] Jelena 00:00:00 00:00:00 ROBYN Seybol d 2023-02-19 2023-02-19 Outpatient PREZAS, JELENA KNIGHT [id number] Jelena 00:00:00 00:00:00 BYRON Seybol d 2023-02-18 2023-02-18 Outpatient HUNDL, JELENA KNIGHT [id number] Jelena 11:00:00 11:00:00 ROBYN Seybol d 2023-02-16 2023-02-16 Outpatient HUNDL, JELENA KNIGHT [id number] Jelena 00:00:00 00:00:00 ROBYN Seybol d 2023-02-06 2023-02-06 Outpatient NEVAREZ, JELENA KNIGHT [id number] Jelena 00:00:00 00:00:00 LASUNDRA Seybo ld 2023-02-06 2023-02-06 Outpatient ALVARO, JELENA KNIGHT [id number] Jelena 00:00:00 00:00:00 SHANEIKA Seybo ld 2023-02-05 2023-02-05 Outpatient LAB90 JELENA KNIGHT [id number] Jelena 09:10:00 09:10:00 Seybol d 2023-02-05 2023-02-05 Outpatient JELENA MALHOTRA [id number] Jelena 00:00:00 00:00:00 BYRON Seybol d 2023-02-05 2023-02-05 Outpatient KAMILA JELENA KNIGHT [id number] Jelena 00:00:00 00:00:00 OLENA Seybol d 2023-02-02 2023-02-02 Outpatient KIKE JELENA KNIGHT [id number] Jelena 09:30:00 09:30:00 SPENSER Seybol d 2023-02-02 2023-02-02 Outpatient COOKIE JELENA KNIGHT [id number] Jelena 00:00:00 00:00:00 ROBYN Seybol d 2023-02-02 2023-02-02 Outpatient COOKIE JELENA KNIGHT [id number] Jelena 00:00:00 00:00:00 ROBYN Seybol d 2023-01-28 2023-01-28 Outpatient ANSLEMOJELENA [id number] Jelena 11:00:00 11:00:00 AHMED Seybol d 2023-01-18 2023-01-18 Outpatient JELENA GARY [id number] Jelena 00:00:00 00:00:00 ROBYN Seybol d 2023-01-17 2023-01-17 Outpatient PREZALeeroy JELENA KNIGHT [id number] Jelena 00:00:00 00:00:00 BYRON Seybol d 2023-01-14 2023-01-14 Outpatient JELENA GARY [id number] Jelena 00:00:00 00:00:00 ROBYN Seybol d 2023-01-07 2023-01-07 Outpatient JELENA GARY [id number] Jelena 00:00:00 00:00:00 ROBYN Seybol d 2023-01-06 2023-01-06 Outpatient GAURAV PURVIS [id number] Jelena 00:00:00 00:00:00 Seybol d 2023-01-06 2023-01-06 Outpatient JELENA GARY [id number] Jelena 00:00:00 00:00:00 ROBYN Seybol d 2023-01-06 2023-01-06 Outpatient JELENA TURPIN [id number] Jelena 00:00:00 00:00:00 JAROD Seybol d 2023-01-01 2023-01-01 Outpatient HUNDL JELENA JELENA [id number] Jelena 10:30:00 10:30:00 ROBYN Seybol d 2023-01-01 2023-01-01 Outpatient FARIDALJELENA JELENA [id number] Jelena 00:00:00 00:00:00 ROBYN Seybol d 2022-12-31 2022-12-31 Outpatient PLABPA JELENA KNIGHT [id number] Jelena 09:00:00 09:00:00 Seybol d 2022-12-30 2022-12-30 Outpatient HUNDL, JELENA KNIGHT [id number] Jelena 10:30:00 10:30:00 ROBYN Seybol d 2022-12-29 2022-12-29 Outpatient LAB90 JELENA KNIGHT [id number] Jelena 11:20:00 11:20:00 Seybol d 2022-12-29 2022-12-29 Outpatient FARIDAL JELENA KNIGHT [id number] Jelena 10:30:00 10:30:00 ROBYN Seybol d 2022-12-29 2022-12-29 Outpatient HUNDL JELENA KNIGHT [id number] Jelena 00:00:00 00:00:00 ROBYN Seybol d 2022-12-29 2022-12-29 Outpatient SEWIELLITO JELENA KNIGHT [id number] Jelena 00:00:00 00:00:00 AHMED Seybol d 2022-12-26 2022-12-26 Outpatient PLABPA JELENA KNIGHT [id number] Jelena 09:00:00 09:00:00 Seybol d 2022-12-26 2022-12-26 Outpatient MISAJELENA [id number] [place] 00:00:00 00:00:00 JENNIFER Seybol d 2022-12-26 2022-12-26 Outpatient PREZAJELENA Umaña [id number] [place] 00:00:00 00:00:00 BYRON Seybol d 2022-12-25 2022-12-25 Outpatient GAURAV PURVIS [id number] [place] 00:00:00 00:00:00 Seybol d 2022-12-24 2022-12-24 Outpatient PLABPA JELENA KNIGHT [id number] [place]ena 11:30:00 11:30:00 Seybol d 2022-12-22 2022-12-22 Outpatient GAURAV PURVIS JELENA KNIGHT [id number] [place] 09:00:00 09:00:00 Seybol d 2022-12-22 2022-12-22 Outpatient JELENA GARY [id number] [place] 00:00:00 00:00:00 ROBYN Seybol d 2022-12-20 2022-12-20 Outpatient NANCYJELENA HERNANDEZ [id number] [place] 00:00:00 00:00:00 JALYN Seybol d 2022-12-19 2022-12-19 Outpatient PREZALeeroyJELENA [id number] [place] 00:00:00 00:00:00 BYRON Seybol d 2022-12-18 2022-12-18 Outpatient JELENA GARY [id number] [place] 00:00:00 00:00:00 ROBYN Seybol d 2022-12-18 2022-12-18 Outpatient JELENA GARY [id number] [place] 00:00:00 00:00:00 ROBYN Seybol d 2022-12-15 2022-12-15 Outpatient MYKELSEYONJessica KNIGHT [id number] [place] 00:00:00 00:00:00 MD ANKITA Seybol d 2022-12-15 2022-12-15 Outpatient JELENA MARTINEZ [id number] [place] 00:00:00 00:00:00 MANOLO Seybol d 2022-12-15 2022-12-15 Outpatient JELENA GIVENS [id number] [place] 00:00:00 00:00:00 GAUTAM Seybol d 2022-12-12 2022-12-12 Outpatient JELENA GIVENS [id number] [place] 10:30:00 10:30:00 GAUTAM Seybol d 2022-12-12 2022-12-12 Outpatient JELENA KNIGHT [id number] Jelena 00:00:00 00:00:00 Seybol d 2022-12-12 2022-12-12 Outpatient PREZAS, JELENA KNIGHT [id number] [place] 00:00:00 00:00:00 BYRON Seybol d 2022-12-11 2022-12-11 Outpatient PREZAS, JELENA KNIGHT [id number] [place] 00:00:00 00:00:00 BYRON Seybol d 2022-12-08 2022-12-08 Outpatient MERRILL, JELENA KNIGHT [id number] [place] 10:40:00 10:40:00 JAROD Seybol d 2022-12-08 2022-12-08 Outpatient JELENA KNIGHT [id number] [place] 10:25:00 10:25:00 Seybol d 2022-12-08 2022-12-08 Outpatient KAWAR, GAURAV KNIGHT [id number] [place] 08:30:00 08:30:00 Seybol d 2022-12-08 2022-12-08 Outpatient HUNDL, JELENA KNIGHT [id number] [place] 00:00:00 00:00:00 ROBYN Seybol d 2022-12-04 2022-12-04 Outpatient PREZAS, JELENA KNIGHT [id number] [place] 00:00:00 00:00:00 BYRON Seybol d 2022-12-04 2022-12-04 Outpatient MERRILL, JELENA KNIGHT [id number] [place] 00:00:00 00:00:00 JAROD Seybol d 2022-12-04 2022-12-04 Outpatient JELENA KNIGHT [id number] [place]ena 00:00:00 00:00:00 Seybol d 2022-12-04 2022-12-04 Outpatient HUNDL, JELENA KNIGHT [id number] [place] 00:00:00 00:00:00 ROBYN Seybol d 2022-12-01 2022-12-01 Outpatient HUNDL, JELENA KNIGHT [id number] [place] 00:00:00 00:00:00 ROBYN Seybol d 2022-11-27 2022-11-[address], TECH JELENA KNIGHT [id number] [place] 10:30:00 10:30:00 Seybol d 2022-11-27 2022-11-27 Outpatient RUSSELL JELENA KNIGHT [id number] [place] 00:00:00 00:00:00 MD ANKITA Seybol d 2022-11-27 2022-11-27 Outpatient RUSSELL FLAHERTYLIT KNIGHT [id number] [place] 00:00:00 00:00:00 MD ANKITA Seybol d 2022-11-21 2022-11-21 Outpatient JELENA GARY [id number] [place] 00:00:00 00:00:00 ROBYN Seybol d 2022-11-20 2022-11-[address] [facility] [id number] Jarod 10:08:21 10:08:21 0323 F Lee 2022-11-19 2022-11-19 Outpatient JELENA GARY [id number] Jelena 00:00:00 00:00:00 ROBYN Seybol d 2022-11-14 2022-11-14 Outpatient JELENA GARY [id number] Jelena 00:00:00 00:00:00 ROBYN Seybol d 2022-11-14 2022-11-14 Outpatient JELENA KNIGHT [id number] Jelena 00:00:00 00:00:00 Seybol d 2022-11-11 2022-11-11 Outpatient JELENA GARY [id number] Jelena 00:00:00 00:00:00 ROBYN Seybol d 2022-11-07 2022-11-07 Outpatient JELENA VICK [id number] Jelena 00:00:00 00:00:00 DARLIN Seybo ld 2022-11-07 2022-11-07 Outpatient JELENA VICK [id number] Jelena 00:00:00 00:00:00 DARLIN Seybo ld 2022-11-07 2022-11-07 Outpatient JELENA VICK [id number] Jelena 00:00:00 00:00:00 DARLIN Seybo ld 2022-11-07 2022-11-07 Outpatient JELENA VICK [id number] Jelena 00:00:00 00:00:00 DARLIN Seybo ld 2022-11-07 2022-11-07 Outpatient HUNDL, JELENA KNIGHT [id number] Jelena 00:00:00 00:00:00 ROBYN Seybol d 2022-11-07 2022-11-07 Outpatient HUNDL, JELENA JELENA [id number] Jelena 00:00:00 00:00:00 ROBYN Seybol d 2022-11-07 2022-11-07 Outpatient HUNDL, JELENA KNIGHT [id number] Jelena 00:00:00 00:00:00 ROBYN Seybol d 2022-11-07 2022-11-07 Outpatient HUNDL, JELENA KNIGHT [id number] Jelena 00:00:00 00:00:00 ROBYN Seybol d 2022-11-07 2022-11-07 Outpatient HUNDL, JELENA KNIGHT [id number] Jelena 00:00:00 00:00:00 ROBYN Seybol d 2022-11-07 2022-11-07 Outpatient HUNDL, JELENA KNIGHT [id number] Jelena 00:00:00 00:00:00 ROBYN Seybol d 2022-10-30 2022-10-30 Outpatient [facility] [id number] Jarod 08:26:44 08:26:44 0302 F Lee 2022-10-30 2022-10-30 Outpatient HUNDL, JELENA KNIGHT [id number] Jelena 00:00:00 00:00:00 ROBYN Seybol d 2022-10-29 2022-10-29 Outpatient HUNDL, JLEENA KNIGHT [id number] Jelena 00:00:00 00:00:00 ROBYN Seybol d 2022-10-29 2022-10-29 Outpatient HUNDL, JELENA KNIGHT [id number] Jelena 00:00:00 00:00:00 ROBYN Seybol d 2022-10-29 2022-10-29 Outpatient HUNDL, JELENA KNIGHT [id number] Jelena 00:00:00 00:00:00 ROBYN Seybol d 2022-10-29 2022-10-29 Outpatient JELENA VICK [id number] Jelena 00:00:00 00:00:00 DARLIN Guevaraybo ld 2022-10-28 2022-10-28 Outpatient LAB47 JELENA KNIGHT [id number] Jelena 09:45:00 09:45:00 Seybol d 2022-10-28 2022-10-28 Outpatient NAVA JELENA KNIGHT [id number] Jelena 09:00:00 09:00:00 DARLIN Seybo ld 2022-10-23 2022-10-23 Outpatient COOKIE JELENA KNIGHT [id number] Jelena 00:00:00 00:00:00 ROBYN Seybol d 2022-10-22 2022-10-22 Outpatient HUNDL, JELENA KNIGHT [id number] Jelena 08:00:00 08:00:00 ROBYN Seybol d 2022-10-13 2022-10-[address] [facility] [id number] Jarod 11:24:16 11:24:16 0213 F Lee 2022-10-10 2022-10-10 Outpatient LAB90 JELENA KNIGHT [id number] Jelena 09:25:00 09:25:00 Seybol d 2022-10-10 2022-10-10 Outpatient HUNDL, JELENA KNIGHT [id number] Jelena 08:30:00 08:30:00 ROBYN Seybol d 2022-10-10 2022-10-10 Outpatient HUNDL, JELENA KNIGHT [id number] Jelena 00:00:00 00:00:00 ROBYN Seybol d 2022-10-09 2022-10-09 Outpatient HUNDL, JELENA KNIGHT [id number] Jelena 08:30:00 08:30:00 ROBYN Seybol d 2022-10-09 2022-10-09 Outpatient HUNDL, JELENA KNIGHT [id number] Jelena 00:00:00 00:00:00 ROBYN Seybol d 2022-09-30 2022-09-30 Outpatient HUNDL, JELNEA KNIGHT [id number] Jelena 00:00:00 00:00:00 ROBYN Seybol d 2022-09-26 2022-09-26 Outpatient HUNDL, JELENA KNIGHT [id number] Jelena 00:00:00 00:00:00 ROBYN Seybol d 2022-09-242022-09-24 Outpatient LAB90 JELENA KNIGHT [id number] Jelena 17:05:00 17:05:00 Seybol d 2022-09-24 2022-09-24 Outpatient COOKIE JELENA KNIGHT [id number] Jelena 11:00:00 11:00:00 ROBYN Seybol d 2022-09-22 2022-09-22 Outpatient SFA SFA [id number] Jarod 09:21:24 09:21:24 0123 F Lee 2022-09-22 2022-09-22 Outpatient COOKIE JELENA KNIGHT [id number] Jelena 00:00:00 00:00:00 ROBYN Seybol d 2022-09-17 2022-09-17 Outpatient JELENA GARY [id number] Jelena 00:00:00 00:00:00 ROBYN Seybol d 2022-09-12 2022-09-12 Outpatient JELENA GARY [id number] Jelena 00:00:00 00:00:00 ROBYN Seybol d 2022-09-11 2022-09-11 Outpatient COKOIE JELENA KNIGHT [id number] Jelena 00:00:00 00:00:00 ROBYN Seybol d 2022-09-10 2022-09-10 Outpatient SFA SFA [id number] Jarod 11:36:44 11:36:44 0111 F Lee 2022-09-10 2022-09-10 Outpatient [id number] 00:00:00 00:00:00 Visit 87da-47c3 7da-47c3-b -im90-6u7 x42-0d0q3t [id number] 2022-09-09 2022-09-09 Outpatient LAB90 JELENA KNIGHT [id number] Jelena 09:30:00 09:30:00 Seybol d 2022-09-09 2022-09-09 Outpatient COOKIE JELENA KNIGHT [id number] Jelena 08:30:00 08:30:00 ROBYN Seybol d 2022-09-09 2022-09-09 Outpatient JELENA GARY [id number] Jelena 00:00:00 00:00:00 ROBYN mayorga 2022-09-04 2022-09-04 Outpatient SFA SFA [id number] Jarod 08:29:33 08:29:33 0105 F Lee 2022-09-04 2022-09-04 Outpatient [id number] 00:00:00 00:00:00 Visit 0aa1-7pe9 bd9-4ec7-b -bbc8-d95 bc8-d957ab [id number] 2022-08-28 2022-08-28 Outpatient SFA SFA [id number] Jarod 11:35:11 11:35:11 1229 F Lee 2022-08-28 2022-08-28 Outpatient [id number] 00:00:00 00:00:00 Visit 010b-47c2 10b-47c2-b -o9y1-h67 6p1-m320x9 5p2126m7f [id number] 2022-05-24 2022-05-24 [facility] [id number] 15:15:00 18:38:00 2381-551e 81-551e-843 36 -843c-ca8 [id number]-[id number] 5eb 2022-03-15 2022-03-15 [facility] 761 [place] 10:56:00 10:56:00 FLO 0716 [facility] 2020-11-29 2020-11-29 Outpatient Gracia GRAFF, [facility] [id number] Univers 15:30:00 15:30:00 ANNEMARIE magaña [facility] 2020-10-23 2020-10-23 Telephone Alexandre Delgado 1.2.840.114 [id number] Univers 00:00:00 00:00:00 [facility] 350.1.13.10 [facility] of HEALTH 4.2.7.2.686 [place] UNIT [id number] [address] 2020-10-23 2020-10-23 Telephone Alexandre Delgado 1.2.840.114 [id number] 00:00:00 00:00:00 [facility] 350.1.13.10 HEALTH 4.2.7.2.686 UNIT [id number] 362 2020-10-12 2020-10-12 Outpatient R TASH [facility] [id number] Univers 09:00:00 09:00:00 SHEY ity [facility] 2020-09-27 2020-09-27 Orders Doctor CONNER 1.2.840.114 [id number] Univers 00:00:00 00:00:00 Only Unassigned, LESLEY 350.1.13.10 ity of [facility] [facility] 4.2.7.2.686 Marvel as [phone] [address] 2020-09-27 2020-09-27 Orders Doctor CONNER 1.2.840.114 [id number] 00:00:00 00:00:00 Only Unassigned, LESLEY 350.1.13.10 [facility] 4.2.7.2.686 [id number] 009 2020-09-20 2020-09-20 Telephone [facility] 1.2.840.114 [id number] Univers 00:00:00 00:00:00 Shey Lopez [facility] 350.1.13.10 it y of Surgical 4.2.7.2.686 Marvel as Specialti [phone] [place] dictx es 198 [facility] 2020-09-20 2020-09-20 Telephone [facility] 1.2.840.114 [id number] 00:00:00 00:00:00 Shey Lopez [facility] 350.1.13.10 Surgical 4.2.7.2.686 Specialti [id number] [address] 2020-09-07 2020-09-07 Office [facility] [id number] [facility] 09:03:53 09:52:26 Visit Shey Cabral 350.1.13.10 it y of Surgical 4.2.7.2.686 Marvel as Specialti [id number] [place] dical es 198 [facility] 2020-09-07 2020-09-07 Office Tash [facility] 1.2.626.941 [id number] 09:03:53 09:52:26 Visit Shey Health 350.1.13.10 Surgical 4.2.7.2.686 Specialti [id number] es 198 [place] 2020-09-07 2020-09-07 Outpatient [facility] [id number] Univers 09:00:00 09:00:00 [facility] 2020-08-30 2020-08-30 Outpatient Gracia [facility] [id number] Univers 08:30:00 08:30:00 [facility] 2020-08-20 2020-08-20 [facility] 1.2.840.114 [id number] Univers 10:11:58 23:59:00 Encounter Health 350.1.13.10 [place] [phone] [place] [id number] [place] ([facility]) 2020-08-20 2020-08-20 Outpatient R SANDY [facility] [id number] Univers 10:11:58 23:59:00 ity [facility] 2020-08-16 2020-08-16 Refgreg [facility] 1.2.840.114 [id number] Univers 00:00:00 00:00:00 [facility] 350.1.13.10 it y of [place] 4.2.7.2.686 Marvel as Professio [phone] [address] Office Building One 2020-08-02 2020-08-02 Office Care, Ang Primary BRAZORIA 1.2.840 .114 [id number] Univers 10:40:31 12:20:58 Visit Alexandre Delgado [facility] 350.1.13.10 ity of [place] [id number] [address] 2020-08-02 2020-08-02 Outpatient R SANDY [facility] [id number] Univers 10:30:00 10:30:00 ity [facility] 2020-08-02 2020-08-02 Orders Doctor PRIETO 1.2.840.114 [id number] Univers 00:00:00 00:00:00 Only Unassigned, LESLEY 350.1.13.10 ity of [facility] [facility] 4.2.7.2.686 Marvel as [phone] [address] 2020-05-31 2020-05-31 Outpatient R [facility] [id number] Univers 08:50:00 08:50:00 ILIANA [facility] 2020-05-24 2020-05-24 Outpatient Gracia DELGADO [facility] [id number] Univers 00:00:00 00:00:00 ity [facility] 2020-05-22 2020-05-22 Outpatient [facility] [id number] Univers 09:50:00 09:50:00 [facility] 2020-05-17 2020-05-21 Office Care, Ang Primary ROSY 1.2.840 .114 [id number] Univers 11:05:31 09:49:52 Visit Bethany Delgadocy [facility] 350.1.13.10 ity of [facility] 4.2.7.2.[place] [id number] [address] 2020-05-21 2020-05-21 Outpatient Gracia DELGADO ALEXANDRE [facility] [id number] Univers 00:00:00 00:00:00 ity [facility] 2020-05-17 2020-05-17 Outpatient Gracia DELGADO [facility] [id number] Univers 10:30:00 10:30:00 ity [facility] 2020-05-17 2020-05-17 Orders Doctor PRIETO 1.2.840.114 [id number] Univers 00:00:00 00:00:00 Only Unassigned, LESLEY 350.1.13.10 ity of [place] [facility] 4.2.7.2.686 Marvel as [id number] [address] 2020-05-08 2020-05-08 Outpatient R [facility] [id number] Univers 08:30:00 08:30:00 ANNEMARIE magaña [facility] 2020-05-08 2020-05-08 Telemedici [facility] 1.2.840.114 [id number] Univers 07:05:41 07:35:41 ne Visit Annemarie E SPECIALTY 350.1.13.10 ity of [place] AT [id number] [place] suman White [facility] 2020-05-01 2020-05-01 Outpatient R DAJUAN [facility] [id number] Univers 09:30:00 09:30:00 ANNEMARIE pavithra o f [facility] 2020-04-24 2020-04-24 Outpatient R DAJUAN [facility] [id number] Univers 09:30:00 09:30:00 ANNEMARIE tafoyay o f [facility] 2020-03-08 2020-03-20 Office Care, Ang Primary ROSY 1.2.840 .114 [id number] Univers 10:02:59 09:15:53 Visit Alexandre Delgado [facility] 350.1.13.10 ity of [place] [id number] [facility] [address] [place] 2020-03-16 2020-03-16 Hospital Alexandre Delgado [facility] 1.2.840.114 [id number] Univers 07:51:00 23:59:00 Encounter [place] 350.1.13.10 ity of [place] [id number] [facility] [address] [place] 2020-03-16 2020-03-16 Outpatient R SANDY ALEXANDRE [facility] [id number] Univers 00:00:00 00:00:00 ity of [facility] 2020-03-13 2020-03-13 Telephone Alexandre Delgado ROSY 1.2.840.114 [id number] Univers 00:00:00 00:00:00 [facility] 350.1.13.10 it y [place].2.[place] PRIMARY [id number] [facility] CARE - 362 [facility] 2020-03-08 2020-03-08 Outpatient R SANDY [facility] [id number] Univers 10:00:00 10:00:00 ity of [facility] 2020-03-08 2020-03-08 Orders Doctor PRIETO 1.2.840.114 [id number] Univers 00:00:00 00:00:00 Only Unassigned, LESLEY 350.1.13.10 ity of [place] [facility] 4.2.7.2.686 Marvel as [id number] [facility] [address] [place] 2020-02-29 2020-02-29 Telephone Alexandre Delgado 1.2.840.114 [id number] Univers 00:00:00 00:00:00 [facility] 350.1.13.10 it y of [place] [id number] [facility] [address] [place] 2020-02-14 2020-02-14 Telephone [facility] 1.2.720.547 [id number] Univers 00:00:00 00:00:00 Dannie Hubert 350.1.13.10 it[place] Profess[place] [id number] [facility] nal [address] [place] [address] 2020-02-10 2020-02-10 Outpatient R [facility] [id number] Univers 09:00:00 09:00:00 ity of [facility] 2020-02-10 2020-02-10 Orders Doctor PRIETO 1.2.840.114 [id number] Univers 00:00:00 00:00:00 Only Unassigned, LESLEY 350.1.13.10 ity of [place] [facility] 4.2.7.2.686 Marvel as [phone] [address] 2020-01-24 2020-01-24 Outpatient [facility] [id number] Univers 10:40:00 10:40:00 DANNIE arshad o f [facility] 2020-01-24 2020-01-24 Telemedici [facility] 1.2.840.114 [id number] Univers 07:57:10 08:17:10 ne Visit Shaylajuanaraymundo Hubert 350.1.13.10 [place] Profess[place] [phone] [place] dictx nal [address] [place] [address] 2020-01-18 2020-01-18 Outpatient R [facility] [id number] Univers 13:00:00 13:00:00 ity [facility] 2019-11-10 2019-11-10 Telephone Alexandre Delgado 1.2.840.114 [id number] Univers 00:00:00 00:00:00 [facility] 350.1.13.10 it y of [place].2.[place] [id number] [place] [address] [place] 2019-11-03 2019-11-03 Outpatient R ALEXANDRE DELGADO [facility] [id number] Univers 08:15:00 08:15:00 ity of [facility] 2019-10-25 2019-10-25 Office [facility] 1.2.840.114 [id number] Univers 08:48:06 09:27:18 Visit Annemarie AVILES 350.1.13.10 ity of CARE [place].2.[place] C[place] AT [phone] Nc dical VICTORY 072 [facility] 2019-10-25 2019-10-25 Outpatient [facility] [id number] Univers 09:00:00 09:00:00 ANNEMARIE tafoyay o f [facility] 2019-10-24 2019-10-24 Office [facility] 1.2.840.114 [id number] Univers 10:57:17 15:44:20 Visit Dannie Christy 350.1.13.10 ity [facility] 4.2.7.2.[place] Profess[place] [phone] [place] dical nal 059 [facility] 2019-10-24 2019-10-24 Outpatient R AYAN [facility] [id number] Univers 11:00:00 11:00:00 DANNIE arshad o f [facility] 2019-09-29 2019-09-29 Office Care, Aries GALLEGOS 1.2.840 .114 [id number] Univers 10:38:08 11:16:42 Visit Alexandre Delgado [facility] 350.1.13.10 ity of [place] 4[place].2.[place] [id number] [address] 2019-09-29 2019-09-29 Outpatient R ALEXANDRE DELGADO [facility] [id number] Univers 10:00:00 11:16:42 ity of [facility] 2019-09-14 2019-09-14 Telephone Alexandre Delgado ROSY 1.2.840.114 [id number] Univers 00:00:00 00:00:00 [facility] 350.1.13.10 it y of [place] [id number] [address] 2019-09-08 2019-09-08 Orders Doctor CONNER 1.2.840.114 [id number] Univers 00:00:00 00:00:00 Only Unassigned, LESLEY 350.1.13.10 ity of [place] [facility] 4.2.7.2.686 Marvel as [id number] [address] 2019-05-05 2019-05-05 Telephone Alexandre Delgado 1.2.840.114 [id number] Univers 00:00:00 00:00:00 [facility] 350.1.13.10 it y of [place] [id number] [address] 2019-04-28 2019-04-28 Office Care, [facility] Bob GALLEGOS 1.2.[id number] [facility] 09:26:40 11:38:19 Visit Alexandre Delgado [facility] 350.1.13.10 ity of HEALTH 4[place].2.[place] [id number] [address] 2019-04-28 2019-04-28 Orders Doctor CONNER 1.2.840.114 [id number] Univers 00:00:00 00:00:00 Only Unassigned, LESLEY 350.1.13.10 ity of [place] [facility] 4.2.7.2.686 Marvel as [phone] [address] Results Test Description Test Time Test Comments Results Result Comments Source COMP. METABOLIC PANEL (14340) 2023-06-26 17:34:22 Test Item Value Reference Range Interpretation Comme nts NA (test code = 3296218228) 141 mmol/L 135-145 K (test code = 5277420761) 3.6 mmol/L 3.5-5.0 CL (test code = 9993621754) 109 mmol/L 98-108 H CO2 TOTAL (test code = 3767695742) 17 mmol/L 23-31 L AGAP (test code = 5187714513) 15 2-16 BUN (test code = 6570983135) 6 mg/dL 7-23 L GLUCOSE (test code = 4519262537) 85 mg/dL 70-110 CREATININE (test code = 0.67 mg/dL 0.50-1.04 0453195499) TOTAL BILI (test code = 0.6 mg/dL 0.1-1.0 2958831287) CALCIUM (test code = 6570042686) 9.7 mg/dL 8.6-10.6 T PROTEIN (test code = 1328822755) 8.8 g/dL 6.3-8.2 H ALBUMIN (test code = 9508705377) 4.5 g/dL 3.5-5.0 ALK PHOS (test code = 2018808758) 65 U/L 34-122 ALTv (test code = 1742-6) 14 U/L 5-35 AST(SGOT) (test code = 4143437025) 20 U/L 13-40 eGFR (test code = 1504460039) 103.3 mL/min/1.73m2 INES (test code = INES) [...] tests). Lab Interpretation (test code = Abnormal 54581-9) [facility] WITH [id number] 17:15:57 Test Item Value Reference Range Interpretation Comments WBC (test code = 6.77 See_Comment [Automated message] 5532-2) The system katena generated this result transmitted ref erence range: 4.30 - 1 1.10 10*3/?L. The re ference range was not u sed to interpret this result as normal/abnor mal. RBC (test code = 4.71 See_Comment [Automated message] 299-8) The system katena generated this result transmitted ref erence range: [...] RDW-SD (test code 39.8 fL 39.0-49.9 = 12757-0) RDW-CV (test code 13.0 % 12.0-15.5 = 788-0) PLT (test code = 265 See_Comment [Automated message] 577-3) The system katena generated this result transmitted ref erence range: 166 - 35 8 10*3/?L. The re ference range was not u sed to interpret this result as normal/abnor mal. MPV (test code = 11.0 fL 9.5-12.9 18434-6) NRBC/100 WBC (test 0.0 See_Comment [Automat ed message] code = 5419264254) The [employer] which generated this result transmitted ref erence range: 0.0 - 10 .0 /100 WBCs. The refer ence range was not u sed to interpret this result as normal/abnor mal. NRBC x10^3 (test See_Comment [Automated message] code = 8398950253) The syste m which generated this result transmitted ref erence range: 10*3/?L. The reference range was not used to interpr et this result as normal/abnormal . GRAN MAT (NEUT) % 61.8 % (test code = 770-8) IMM GRAN % (test 0.30 % code = 3458764838) LYMPH % (test code 27.3 % = 736-9) MONO % (test code 5.8 % = 5905-5) EOS % (test code = 4.4 % 713-8) BASO % (test code 0.4 % = 706-2) GRAN MAT 4.18 10*3/uL 1.88-7.09 x10^3(ANC) (test code = 8565121935) IMM GRAN x10^3 0.00-0.06 (test code = 0902281974) LYMPH x10^3 (test 1.85 10*3/uL 1.32-3.29 code = 731-0) MONO x10^3 (test 0.39 10*3/uL 0.33-0.92 code = 742-7) EOS x10^3 (test 0.30 10*3/uL 0.03-0.39 code = 711-2) BASO x10^3 (test 0.03 10*3/uL 0.01-0.07 code = 704-7) [facility] [id number] 14:30:07 Test Item Value Reference Range Interpretation [...] = 762) CBC W/PLT COUNT & AUTO [id number] 14:30:06 Test Item Value Reference Range Interpretation [...] PERCENT (BEAKER) (test code = 2801) TROPONIN [id number] 14:12:53 Test Item Value Reference Range Interpretation [...] failure, acidosis, acute neurological disease, and persistent tachyarrhythmia.Pump Machine Operator ID - DSENSONCOMPREHENSIVE METABOLIC [id number] 14:10:56 Test Item Value Reference Range Interpretation [...] not appl icable for dialysis patien ts Pump Machine Operator ID - DSENSONOperator ID - DSENSONOperator ID - DSENSONOperator ID - DSENSONOperator ID - DSENSONOperator ID - DSENSONOperator ID - DSENSONOperator ID - DSENSONOperator ID - DSENSONOperator ID - DSENSONOperator ID - DSENSONOperator ID - DSENSONOperator ID - DSENSONOperator ID - DSENSONOperatorID - DSENSONOperator ID - DSENSONOperator ID - DSENSONOperator ID - DSENSONOperator ID - DSENSONPROTHROMBIN TIME/[id number] 14:03:14 Test Item Value Reference Range Interpretation Comments PROTIME (BEAKER) 10.3 seconds 9.3-12.0 Final Infor mation (test code = 759) (Auto Outp ut) INR (BEAKER) (test 0.96 See_Comment Final Inf ormation code = 370) (Auto Output) [Automated mess age] The system katena generated this result transmitted ref erence range: <=5.90. The reference range was not used to int erpret this result as normal/abnormal . RECOMMENDED COUMADIN/WARFARIN INR THERAPY RANGESSTANDARD DOSE: 2.0 - 3.0 Includes: PROPHYLAXIS for venous thrombosis, systemic embolization; TREATMENT for venous thrombosis and/or pulmonary embolus.HIGH RISK: Target INR is 2.5-3.5 for patients with mechanical heart valves.CT brain without IV [id number] 12:52:28CT BRAIN WITHOUT IV CONTRAST CLINICAL INDICATION: Seizure disorder, no clinical change COMPARISON: None TECHNIQUE: Noncontrast axial CT imaging of the brain and skull. DOSE REDUCTION: Dose modulation, iterative reconstruction, and/orweight-based adjustment of the mA/kV was utilized to reduce theradiation dose to as low as reasonably achievable. FINDINGS:No intracranial hemorrhage, midline shift or mass effect. Enlarged,partially empty sella. No hydrocephalus. Orbits are within normal limits. No obstructive paranasal sinus disease.[facility] [id number] 12:52:28 [facility] : 1995 Sex: [...] Signed By: Krystle Quiroz04/16/2023 12:54 CDTWorkstation Name: [id number] w/Microscopic + Reflex to Culture 2023-04-16 12:27:52 Test Item Value Reference Range Interpretation Comments Color, UA (test Yellow code = 5778-6) Clarity, UA (test Slightly Cloudy code = 5767-9) Specific [place], 1.001-1.035 UA (test code = 5811-5) pH, UA (test code = 6.0 5.0-8.0 5803-2) Protein, UA (test Negative Negative code = 58442-7) Glucose, UA (test Negative Negative code = 365) Ketones, UA (test Negative Negative code = 2514-8) Bilirubin, UA (test Negative Negative code = 52970-5) Blood, UA (test Negative Negative code = 40825-5) Nitrite, UA (test Negative Negative code = 5802-4) Leukocytes, UA Negative Negative (test code = 5799-2) Urobilinogen, UA 0.2 (test code = 80341-2) Bacteria, UA (test Few code = 72309-9) Mucus (test code = Few 8247-9) Ca Oxalate Lilly, UA Moderate (test code = 43718-4) RBC, UA (test code <5 See_Comment [Automat ed = 799-7) message] The sy stem which generated this result transmitted reference range : /HPF. The refer ence range was not u sed to interpret th is result as normal/abnormal . WBC, UA (test code <5 See_Comment [Automat ed = 21570-6) message] The sy stem which generated this result transmitted reference range : /HPF. The refer ence range was not u sed to interpret th is result as normal/abnormal . SQUAMOUS EPITHELIAL <5 See_Comment [Automa inge (test code = message] The sy stem 67257-3) which generated this result transmitted reference range : /HPF. The refer ence range was not u sed to interpret th is result as normal/abnormal . Specimen Source (test code = 2795) [facility] Reflex [facility] Culture 2023-04-16 12:27:52 Test Item Value Reference Range Interpretation Comments Color, UA (test Yellow code = 5778-6) Clarity, UA (test Slightly Cloudy code = 5767-9) Specific [place], 1.001-1.035 UA (test code = 5811-5) pH, UA (test code = 6.0 5.0-8.0 5803-2) Protein, UA (test Negative Negative code = 88521-2) Glucose, UA (test Negative Negative code = 365) Ketones, UA (test Negative Negative code = 2514-8) Bilirubin, UA (test Negative Negative code = 42008-5) Blood, UA (test Negative Negative code = 53520-1) Nitrite, UA (test Negative Negative code = 5802-4) Leukocytes, UA Negative Negative (test code = 5799-2) Urobilinogen, UA 0.2 (test code = 08441-5) Bacteria, UA (test Few code = 69422-9) Mucus (test code = Few 8247-9) Ca Oxalate Lilly, UA Moderate (test code = 54196-8) RBC, UA (test code <5 See_Comment [Automat ed = 799-7) message] The sy stem which generated this result transmitted reference range : /HPF. The refer ence range was not u sed to interpret th is result as normal/abnormal . WBC, UA (test code <5 See_Comment [Automat ed = 24715-2) message] The sy stem which generated this result transmitted reference range : /HPF. The refer ence range was not u sed to interpret th is result as normal/abnormal . SQUAMOUS EPITHELIAL <5 See_Comment [Automa inge (test code = message] The sy stem 77706-7) which generated this result transmitted reference range : /HPF. The refer ence range was not u sed to interpret th is result as normal/abnormal . Specimen Source (test code = 2795) [facility]23-[facility]-16 12:27:52 Test Item Value Reference Range Interpretation Comments Color, UA (test Yellow code = 5778-6) Clarity, UA (test Slightly Cloudy code = 5767-9) Specific [place], 1.001-1.035 UA (test code = 5811-5) pH, UA (test code = 6.0 5.0-8.0 5803-2) Protein, UA (test Negative Negative code = 68690-2) Glucose, UA (test Negative Negative code = 365) Ketones, UA (test Negative Negative code = 2514-8) Bilirubin, UA (test Negative Negative code = 41106-1) Blood, UA (test Negative Negative code = 82193-0) Nitrite, UA (test Negative Negative code = 5802-4) Leukocytes, UA Negative Negative (test code = 5799-2) Urobilinogen, UA 0.2 (test code = 98906-9) Bacteria, UA (test Few code = 41135-6) Mucus (test code = Few 8247-9) Ca Oxalate Lilly, UA Moderate (test code = 44380-5) RBC, UA (test code <5 See_Comment [Automat ed = 799-7) message] The sy stem which generated this result transmitted reference range : /HPF. The refer ence range was not u sed to interpret th is result as normal/abnormal . WBC, UA (test code <5 See_Comment [Automat ed = 49457-5) message] The sy stem which generated this result transmitted reference range : /HPF. The refer ence range was not u sed to interpret th is result as normal/abnormal . SQUAMOUS EPITHELIAL <5 See_Comment [Automa inge (test code = message] The sy stem 22902-9) which generated this result transmitted reference range : /HPF. The refer ence range was not u sed to interpret th is result as normal/abnormal . Specimen Source (test code = 2795) [facility] 2023-04-16 12:27:52 Test Item Value Reference Range Interpretation Comments Color, UA (test Yellow code = 5778-6) Clarity, UA (test Slightly Cloudy code = 5767-9) Specific [place], 1.001-1.035 UA (test code = 5811-5) pH, UA (test code = 6.0 5.0-8.0 5803-2) Protein, UA (test Negative Negative code = 54691-4) Glucose, UA (test Negative Negative code = 365) Ketones, UA (test Negative Negative code = 2514-8) Bilirubin, UA (test Negative Negative code = 70816-2) Blood, UA (test Negative Negative code = 55119-2) Nitrite, UA (test Negative Negative code = 5802-4) Leukocytes, UA Negative Negative (test code = 5799-2) Urobilinogen, UA 0.2 (test code = 10976-7) Bacteria, UA (test Few code = 15512-4) Mucus (test code = Few 8247-9) Ca Oxalate Lilly, UA Moderate (test code = 30250-5) RBC, UA (test code <5 See_Comment [Automat ed = 799-7) message] The sy stem which generated this result transmitted reference range : /HPF. The refer ence range was not u sed to interpret th is result as normal/abnormal . WBC, UA (test code <5 See_Comment [Automat ed = 59807-6) message] The sy stem which generated this result transmitted reference range : /HPF. The refer ence range was not u sed to interpret th is result as normal/abnormal . SQUAMOUS EPITHELIAL <5 See_Comment [Automa inge (test code = message] The sy stem 39187-7) which generated this result transmitted reference range : /HPF. The refer ence range was not u sed to interpret th is result as normal/abnormal . Specimen Source (test code = 2795) [facility] 2023-04-16 12:27:52 Test Item Value Reference Range Interpretation Comments Color, UA (test Yellow code = 5778-6) Clarity, UA (test Slightly Cloudy code = 5767-9) Specific [place], 1.001-1.035 UA (test code = 5811-5) pH, UA (test code = 6.0 5.0-8.0 5803-2) Protein, UA (test Negative Negative code = 93037-2) Glucose, UA (test Negative Negative code = 365) Ketones, UA (test Negative Negative code = 2514-8) Bilirubin, UA (test Negative Negative code = 24521-2) Blood, UA (test Negative Negative code = 63248-9) Nitrite, UA (test Negative Negative code = 5802-4) Leukocytes, UA Negative Negative (test code = 5799-2) Urobilinogen, UA 0.2 (test code = 98031-0) Bacteria, UA (test Few code = 78915-9) Mucus (test code = Few 8247-9) Ca Oxalate Lilly, UA Moderate (test code = 06619-6) RBC, UA (test code <5 See_Comment [Automat ed = 799-7) message] The sy stem which generated this result transmitted reference range : /HPF. The refer ence range was not u sed to interpret th is result as normal/abnormal . WBC, UA (test code <5 See_Comment [Automat ed = 07777-1) message] The sy stem which generated this result transmitted reference range : /HPF. The refer ence range was not u sed to interpret th is result as normal/abnormal . SQUAMOUS EPITHELIAL <5 See_Comment [Automa inge (test code = message] The sy stem 81253-9) which generated this result transmitted reference range : /HPF. The refer ence range was not u sed to interpret th is result as normal/abnormal . Specimen Source (test code = 2795) [facility] 2023-04-16 12:27:52 Test Item Value Reference Range Interpretation Comments Color, UA (test Yellow code = 5778-6) Clarity, UA (test Slightly Cloudy code = 5767-9) Specific [place], 1.001-1.035 UA (test code = 5811-5) pH, UA (test code = 6.0 5.0-8.0 5803-2) Protein, UA (test Negative Negative code = 52131-8) Glucose, UA (test Negative Negative code = 365) Ketones, UA (test Negative Negative code = 2514-8) Bilirubin, UA (test Negative Negative code = 57135-0) Blood, UA (test Negative Negative code = 89542-8) Nitrite, UA (test Negative Negative code = 5802-4) Leukocytes, UA Negative Negative (test code = 5799-2) Urobilinogen, UA 0.2 (test code = 46720-2) Bacteria, UA (test Few code = 59602-5) Mucus (test code = Few 8247-9) Ca Oxalate Lilly, UA Moderate (test code = 62802-8) RBC, UA (test code <5 See_Comment [Automat ed = 799-7) message] The sy stem which generated this result transmitted reference range : /HPF. The refer ence range was not u sed to interpret th is result as normal/abnormal . WBC, UA (test code <5 See_Comment [Automat ed = 99498-4) message] The sy stem which generated this result transmitted reference range : /HPF. The refer ence range was not u sed to interpret th is result as normal/abnormal . SQUAMOUS EPITHELIAL <5 See_Comment [Automa inge (test code = message] The sy stem 79325-8) which generated this result transmitted reference range : /HPF. The refer ence range was not u sed to interpret th is result as normal/abnormal . Specimen Source (test code = 2795) [facility] [id number] 12:27:52 Test Item Value Reference Range Interpretation [...] (test code = 2795) Rapid drug screen, [id number] 12:19:24 Test Item Value Reference Range Interpretation Comments Barbiturate Screen Negative Negative (test code = 30775-8) Benzodiazepine Screen Positive Negative A (test code = 33687-2) Cocaine (Metab.) Negative Negative Screen (test code = 3397-7) Methadone Screen (test Negative Negative code = 45057-4) Opiate Screen (test Negative Negative code = 72249-9) Cannabinoid Screen Positive Negative A (test code = 29726-0) Amph/Methamph Screen Negative Negative (test code = 27513-9) Phencyclidine Screen Negative Negative (test code = 80921-5) pH, UA (test code = 6.0 5.0-8.0 5803-2) INES (test code = INES) DRUG CUTOFF CONC.Cocaine 300 ng/mL Cannabinoid 50 ng/mLBenzodiazepine 200 ng/mLBarbiturate 200 ng/mLPhencyclidine 25 ng/mLOpiate 300 ng/mLMethadone 300 ng/mLAmphetamine/ 1000 ng/mL Methamphetamine This assay provides an unconfirmed qualitative test result for the clinical management of patients in emergency situations. Chain of custody not maintained. Some qrfm-jgl-rpsdudw medications, as well as adulterants, may cause inaccurate results. Clinical correlation should be applied. A more comprehensive drug screen or confirmation of a detected drug may be performed upon request.Pump Machine Operator ID - DSENSONOperator ID - DSENSONOperator ID - DSENSONOperator ID - DSENSONOperator ID - DSENSONOperator ID - DSENSONOperator ID - DSENSONOperator ID - DSENSON Lab Interpretation Abnormal (test code = 27031-7) [facility], [id number] 12:19:24 Test Item Value Reference Range Interpretation Comments Barbiturate Screen Negative Negative (test code = 05581-4) Benzodiazepine Screen Positive Negative A (test code = 91862-2) Cocaine (Metab.) Negative Negative Screen (test code = 3397-7) Methadone Screen (test Negative Negative code = 61273-8) Opiate Screen (test Negative Negative code = 35623-2) Cannabinoid Screen Positive Negative A (test code = 56011-3) Amph/Methamph Screen Negative Negative (test code = 67763-8) Phencyclidine Screen Negative Negative (test code = 16773-1) pH, UA (test code = 6.0 5.0-8.0 5803-2) INES (test code = INES) DRUG CUTOFF CONC.Cocaine 300 ng/mL Cannabinoid 50 ng/mLBenzodiazepine 200 ng/mLBarbiturate 200 ng/mLPhencyclidine 25 ng/mLOpiate 300 ng/mLMethadone 300 ng/mLAmphetamine/ 1000 ng/mL Methamphetamine This assay provides an unconfirmed qualitative test result for the clinical management of patients in emergency situations. Chain of custody not maintained. Some vkmg-mfx-qsqtylw medications, as well as adulterants, may cause inaccurate results. Clinical correlation should be applied. A more comprehensive drug screen or confirmation of a detected drug may be performed upon request.Pump Machine Operator ID - DSENSONOperator ID - DSENSONOperator ID - DSENSONOperator ID - DSENSONOperator ID - DSENSONOperator ID - DSENSONOperator ID - DSENSONOperator ID - DSENSON Lab Interpretation Abnormal (test code = 16149-3) [facility], [id number] 12:19:24 Test Item Value Reference Range Interpretation Comments Barbiturate Screen Negative Negative (test code = 68540-1) Benzodiazepine Screen Positive Negative A (test code = 94492-7) Cocaine (Metab.) Negative Negative Screen (test code = 3397-7) Methadone Screen (test Negative Negative code = 19947-1) Opiate Screen (test Negative Negative code = 85477-1) Cannabinoid Screen Positive Negative A (test code = 51035-3) Amph/Methamph Screen Negative Negative (test code = 33927-4) Phencyclidine Screen Negative Negative (test code = 04315-6) pH, UA (test code = 6.0 5.0-8.0 5803-2) INES (test code = INES) DRUG CUTOFF CONC.Cocaine 300 ng/mL Cannabinoid 50 ng/mLBenzodiazepine 200 ng/mLBarbiturate 200 ng/mLPhencyclidine 25 ng/mLOpiate 300 ng/mLMethadone 300 ng/mLAmphetamine/ 1000 ng/mL Methamphetamine This assay provides an unconfirmed qualitative test result for the clinical management of patients in emergency situations. Chain of custody not maintained. Some igre-fap-nyzzxwf medications, as well as adulterants, may cause inaccurate results. Clinical correlation should be applied. A more comprehensive drug screen or confirmation of a detected drug may be performed upon request.Pump Machine Operator ID - DSENSONOperator ID - DSENSONOperator ID - DSENSONOperator ID - DSENSONOperator ID - DSENSONOperator ID - DSENSONOperator ID - DSENSONOperator ID - DSENSON Lab Interpretation Abnormal (test code = 97467-4) [facility], [id number] 12:19:24 Test Item Value Reference Range Interpretation Comments Barbiturate Screen Negative Negative (test code = 80821-0) Benzodiazepine Screen Positive Negative A (test code = 83473-2) Cocaine (Metab.) Negative Negative Screen (test code = 3397-7) Methadone Screen (test Negative Negative code = 38920-8) Opiate Screen (test Negative Negative code = 55771-8) Cannabinoid Screen Positive Negative A (test code = 79364-8) Amph/Methamph Screen Negative Negative (test code = 71605-5) Phencyclidine Screen Negative Negative (test code = 42203-1) pH, UA (test code = 6.0 5.0-8.0 5803-2) INES (test code = INES) DRUG CUTOFF CONC.Cocaine 300 ng/mL Cannabinoid 50 ng/mLBenzodiazepine 200 ng/mLBarbiturate 200 ng/mLPhencyclidine 25 ng/mLOpiate 300 ng/mLMethadone 300 ng/mLAmphetamine/ 1000 ng/mL Methamphetamine This assay provides an unconfirmed qualitative test result for the clinical management of patients in emergency situations. Chain of custody not maintained. Some nryr-pow-ckuxtch medications, as well as adulterants, may cause inaccurate results. Clinical correlation should be applied. A more comprehensive drug screen or confirmation of a detected drug may be performed upon request.Pump Machine Operator ID - DSENSONOperator ID - DSENSONOperator ID - DSENSONOperator ID - DSENSONOperator ID - DSENSONOperator ID - DSENSONOperator ID - DSENSONOperator ID - DSENSON Lab Interpretation Abnormal (test code = 23067-8) [facility], [id number] 12:19:24 Test Item Value Reference Range Interpretation Comments Barbiturate Screen Negative Negative (test code = 40125-8) Benzodiazepine Screen Positive Negative A (test code = 05204-5) Cocaine (Metab.) Negative Negative Screen (test code = 3397-7) Methadone Screen (test Negative Negative code = 69230-6) Opiate Screen (test Negative Negative code = 51056-5) Cannabinoid Screen Positive Negative A (test code = 74306-9) Amph/Methamph Screen Negative Negative (test code = 32389-9) Phencyclidine Screen Negative Negative (test code = 69584-7) pH, UA (test code = 6.0 5.0-8.0 5803-2) INES (test code = INES) DRUG CUTOFF CONC.Cocaine 300 ng/mL Cannabinoid 50 ng/mLBenzodiazepine 200 ng/mLBarbiturate 200 ng/mLPhencyclidine 25 ng/mLOpiate 300 ng/mLMethadone 300 ng/mLAmphetamine/ 1000 ng/mL Methamphetamine This assay provides an unconfirmed qualitative test result for the clinical management of patients in emergency situations. Chain of custody not maintained. Some lykv-ldg-wvjrrjx medications, as well as adulterants, may cause inaccurate results. Clinical correlation should be applied. A more comprehensive drug screen or confirmation of a detected drug may be performed upon request.Pump Machine Operator ID - DSENSONOperator ID - DSENSONOperator ID - DSENSONOperator ID - DSENSONOperator ID - DSENSONOperator ID - DSENSONOperator ID - DSENSONOperator ID - DSENSON Lab Interpretation Abnormal (test code = 02777-1) [facility], [id number] 12:19:24 Test Item Value Reference Range Interpretation Comments Barbiturate Screen Negative Negative (test code = 28292-6) Benzodiazepine Screen Positive Negative A (test code = 59091-4) Cocaine (Metab.) Negative Negative Screen (test code = 3397-7) Methadone Screen (test Negative Negative code = 45249-1) Opiate Screen (test Negative Negative code = 22473-2) Cannabinoid Screen Positive Negative A (test code = 32700-0) Amph/Methamph Screen Negative Negative (test code = 60691-3) Phencyclidine Screen Negative Negative (test code = 15384-4) pH, UA (test code = 6.0 5.0-8.0 5803-2) INES (test code = INES) DRUG CUTOFF CONC.Cocaine 300 ng/mL Cannabinoid 50 ng/mLBenzodiazepine 200 ng/mLBarbiturate 200 ng/mLPhencyclidine 25 ng/mLOpiate 300 ng/mLMethadone 300 ng/mLAmphetamine/ 1000 ng/mL Methamphetamine This assay provides an unconfirmed qualitative test result for the clinical management of patients in emergency situations. Chain of custody not maintained. Some vwwo-nzt-oiledwu medications, as well as adulterants, may cause inaccurate results. Clinical correlation should be applied. A more comprehensive drug screen or confirmation of a detected drug may be performed upon request.Pump Machine Operator ID - DSENSONOperator ID - DSENSONOperator ID - DSENSONOperator ID - DSENSONOperator ID - DSENSONOperator ID - DSENSONOperator ID - DSENSONOperator ID - DSENSON Lab Interpretation Abnormal (test code = 66267-1) [facility], [id number] 12:19:24 Test Item Value Reference Range Interpretation [...] situations. Chain of custody not maintained. Some nwsy-hug-yaortmv medications, as well as adulterants, may cause inaccurate results. Clinical correlation should be applied. A more comprehensive drug screen or confirmation of a detected drug may be performed upon request.Pump Machine Operator ID - DSENSONOperator ID - DSENSONOperator ID - DSENSONOperator ID - DSENSONOperator ID - DSENSONOperator ID - DSENSONOperator ID - DSENSONOperator ID - [id number] 00:00:00Ordered by an unspecified provider.[facility], THIRD [id number] 04:08:38 Test Item Value Reference Range Interpretation Comments TSH, THIRD 2.060 UIU/ML 0.400-4.100 UNLESS OTHERWI SE GENERATION (test INDICATED, ALL TESTING code = 2821) PERFORMED [facility], [address] DIRECTOR: AZ AGUIRRE M.D. CLIA NUMBER [id number] CAP ACCREDITATION N O. [id number] COMPREHENSIVE METABOLIC [id number] 03:23:31 Test Item Value Reference Range Interpretation Comments GLUCOSE (test code = 80 MG/DL 70-99 2216) BUN (test code = 7 MG/DL 6-20 2207) CREATININE (test 0.55 MG/DL 0.60-1.30 L code = 2214) eGFR (2020 CKD-EPI) 127 >60 (test code = 42682) ML/MIN/1.73 CALC BUN/CREAT (test 13 RATIO 6-28 code = 2235) SODIUM (test code = 138 MEQ/L 640-188 0658) POTASSIUM (test code 3.9 MEQ/L 3.5-5.4 = [...] U/L 5-40 2218) CBC W/AUTO DIFF WITH [id number] 02:00:05 Test Item Value Reference Range Interpretation [...] RBCS 0.00 K/UL 0.00-0.11 (test code = 82564) CT/NG, NAAT, [id number] 20:52:50 Test Item Value Reference Range Interpretation Comments GONORRHEA, NAAT NEGATIVE NEGATIVE Note: Testi ng is (test code = 65597) performe d with [employer] EDEL 6800/8800 systems using real-time polymerase cali n reaction (PCR) method. CHLAMYDIA, NAAT NEGATIVE NEGATIVE Note: Testi ng is (test code = 67712) performe d with [employer] EDEL 6800/8800 systems using real-time polymerase cali n reaction (PCR) method. HEPATITIS PANEL, [id number] 05:02:20 Test Item Value Reference Range Interpretation Comments HEPATITIS A IgM (test NON-REACTIVE NON-REACTIVE code = 05484) HEPATITIS B CORE IgM NON-REACTIVE NON-REACTIVE (test code = 4644) HEPATITIS B SURF AG NON-REACTIVE NON-REACTIVE (test code = 2739) HEPATITIS C ANTIBODY NON-REACTIVE NON-REACTIVE (test code = 4675) INTERPRETATION (NOTE) Hepatitis A HEPATITIS A: (test code sero logy shows no = 2552) evidence of acu te hepatitis A. INTERPRETATION (NOTE) Hepatitis B HEPATITIS B: (test code sero logy shows no = 68163) evidence of acu te hepatitis B and no indication of exposure to hepatitis B vir us in the previous alejandra eight months. INTERPRETATION (NOTE) Hepatitis C HEPATITIS C: (test code sero logy shows no = 82911) evidence of exposure to hepatitisC viru s at this time. I t can take up to 12 months after exposure tothe hepatitis C vir us for antibodies to become detectab le in the blood in certain patient s. HIV 1/2 4TH GEN, RFLX [id number] 05:02:20 Test Item Value Reference Range Interpretation Comments HIV 1/2 4TH GEN, NON-REACTIVE NON-REACTIVE UNLESS OTH ERWISE RFLX CONF (test INDICATED, A LL TESTING code = 3514) PERFORMED [facility] [employer] [address] [place] [id number] [place] [address] DIRECTOR: AZ AGUIRRE M.D. CLIA NUMBER [id number] CAP ACCREDITATION N O. [id number] RPR REFLEX TO T. PALLIDUM - [id number] 04:28:08 Test Item Value Reference Range Interpretation Comments RPR (test code = 87136) NON-REACTIVE NON-REACTIVE RPR TITER (test code = 3500) NOT INDIC. TITER NOT INDIC. CT/NG, TMA, [id number] 00:00:00 Test Item Value Reference Range Interpretation Comments GONORRHEA, NAAT (test code = 99854) NEGATIVE CHLAMYDIA, NAAT (test code = 74228) NEGATIVE CT/NG, TMA, [id number] 00:00:00 Test Item Value Reference Range Interpretation Comments GONORRHEA, NAAT (test code = 32024) NEGATIVE CHLAMYDIA, NAAT (test code = 36624) NEGATIVE RPR REFLEX TO T. PALLIDUM - [id number] 00:00:00 Test Item Value Reference Range Interpretation Comments RPR (test code = 11025) NON-REACTIVE RPR TITER (test code = 3500) NOT INDIC. TITER RPR REFLEX TO T. PALLIDUM - [id number] 00:00:00 Test Item Value Reference Range Interpretation Comments RPR (test code = 04705) NON-REACTIVE RPR TITER (test code = 3500) NOT INDIC. TITER ACUTE HEPATITIS [id number] 00:00:00 Test Item Value Reference Range Interpretation Comments HEPATITIS A IgM (test code = NON-REACTIVE 21448) HEPATITIS B CORE IgM (test code NON-REACTIVE = 0944) HEPATITIS B SURF AG (test code = NON-REACTIVE 8039) HEPATITIS C ANTIBODY (test code NON-REACTIVE = 4775) INTERPRETATION HEPATITIS A: (NOTE) (test code = 2552) INTERPRETATION HEPATITIS B: (NOTE) (test code = 38818) INTERPRETATION HEPATITIS C: (NOTE) (test code = 90980) ACUTE HEPATITIS [id number] 00:00:00 Test Item Value Reference Range Interpretation Comments HEPATITIS A IgM (test code = NON-REACTIVE 57919) HEPATITIS B CORE IgM (test code NON-REACTIVE = 4644) HEPATITIS B SURF AG (test code = NON-REACTIVE 7169) HEPATITIS C ANTIBODY (test code NON-REACTIVE = 4675) INTERPRETATION HEPATITIS A: (NOTE) (test code = 2552) INTERPRETATION HEPATITIS B: (NOTE) (test code = 23147) INTERPRETATION HEPATITIS C: (NOTE) (test code = 51750) HIV 1/2 4TH GEN, RFLX [id number] 00:00:00 Test Item Value Reference Range Interpretation Comments HIV 1/2 4TH GEN, RFLX CONF (test NON-REACTIVE code = 3514) HIV 1/2 4TH GEN, RFLX [id number] 00:00:00 Test Item Value Reference Range Interpretation Comments HIV 1/2 4TH GEN, RFLX CONF (test NON-REACTIVE code = 3514) VITAMIN D, 25 [id number] 03:25:23 Test Item Value Reference Range Interpretation [...] PERFORM ED [facility], [place]. [address] [place] [address] LABORATORY DIRE CTOR: Rebeca COBB. CLIA NUMBER [id number] CAP ACCREDITATION N O. [id number] HIV 1/2 4TH GEN, RFLX [id number] 03:00:39 Test Item Value Reference Range Interpretation Comments HIV 1/2 4TH GEN, RFLX CONF (test NON-REACTIVE NON-REACTIVE code = 3514) HIV AB/AG COMBO RFLX [id number] 00:00:00 Test Item Value Reference Range Interpretation Comments HIV 1/2 4TH GEN, RFLX CONF (test NON-REACTIVE code = 3514) HIV AB/AG COMBO RFLX [id number] 00:00:00 Test Item Value Reference Range Interpretation Comments HIV 1/2 4TH GEN, RFLX CONF (test NON-REACTIVE code = 3514) VITAMIN D, 25 [id number] 00:00:00 Test Item Value Reference Range Interpretation Comments VITAMIN D, 25 OH (test code = 4958) 27 NG/ML VITAMIN D, 25 [id number] 00:00:00 Test Item Value Reference Range Interpretation Comments VITAMIN D, 25 OH (test code = 4958) 27 NG/ML HIV AB/AG COMBO RFLX [id number] 00:00:00 Test Item Value Reference Range Interpretation Comments HIV 1/2 4TH GEN, RFLX CONF (test NON-REACTIVE code = 3514) HIV AB/AG COMBO RFLX [id number] 00:00:00 Test Item Value Reference Range Interpretation Comments HIV 1/2 4TH GEN, RFLX CONF (test NON-REACTIVE code = 3514) VITAMIN D, 25 [id number] 00:00:00 Test Item Value Reference Range Interpretation Comments VITAMIN D, 25 OH (test code = 4958) 27 NG/ML VITAMIN D, 25 [id number] 00:00:00 Test Item Value Reference Range Interpretation Comments VITAMIN D, 25 OH (test code = 4958) 27 NG/ML HIV AB/AG COMBO RFLX [id number] 00:00:00 Test Item Value Reference Range Interpretation Comments HIV 1/2 4TH GEN, RFLX CONF (test NON-REACTIVE code = 3514) HIV AB/AG COMBO RFLX [id number] 00:00:00 Test Item Value Reference Range Interpretation Comments HIV 1/2 4TH GEN, RFLX CONF (test NON-REACTIVE code = 3514) VITAMIN D, 25 [id number] 00:00:00 Test Item Value Reference Range Interpretation Comments VITAMIN D, 25 OH (test code = 4958) 27 NG/ML VITAMIN D, 25 [id number] 00:00:00 Test Item Value Reference Range Interpretation Comments VITAMIN D, 25 OH (test code = 4958) 27 NG/ML TSH, THIRD [id number] 00:19:50 Test Item Value Reference Range Interpretation Comments TSH, THIRD GENERATION (test code 1.090 UIU/ML 0.400-4.100 = 2821) [id number] 00:00:00 Test Item Value Reference Range Interpretation Comments TSH, THIRD GENERATION (test code 1.090 UIU/ML = 2821) [id number] 00:00:00 Test Item Value Reference Range Interpretation Comments TSH, THIRD GENERATION (test code 1.090 UIU/ML = 2821) [id number] 00:00:00 Test Item Value Reference Range Interpretation Comments TSH, THIRD GENERATION (test code 1.090 UIU/ML = 2821) [id number] 00:00:00 Test Item Value Reference Range Interpretation Comments TSH, THIRD GENERATION (test code 1.090 UIU/ML = 2821) [id number] 00:00:00 Test Item Value Reference Range Interpretation Comments TSH, THIRD GENERATION (test code 1.090 UIU/ML = 2821) [id number] 00:00:00 Test Item Value Reference Range Interpretation Comments TSH, THIRD GENERATION (test code 1.090 UIU/ML = 2821) [id number] 00:00:00 Test Item Value Reference Range Interpretation Comments TSH, THIRD GENERATION (test code 1.090 UIU/ML = 2821) [id number] 00:00:00 Test Item Value Reference Range Interpretation Comments TSH, THIRD GENERATION (test code 1.090 UIU/ML = 2821) [id number] 00:00:00 Test Item Value Reference Range Interpretation Comments TSH, THIRD GENERATION (test code 1.090 UIU/ML = 2821) LIPID [id number] 23:59:41 Test Item Value Reference Range Interpretation [...] MOREINFORMATION , SEE CLIENT ANNOUNCE MENT AT [email or web address] RISK RATIO LDL/HDL 1.79 RATIO <3.22 (test code = 2238) COMPREHENSIVE METABOLIC [id number] 23:59:41 Test Item Value Reference Range Interpretation Comments GLUCOSE (test code = 77 MG/DL 70-99 2216) BUN (test code = 8 MG/DL 6-20 2207) CREATININE (test 0.67 MG/DL 0.60-1.30 EFFECTIVE code = 2214) 08/12/2021, [facility] HAS IMPLEMENTED THE NKF-ASN RECOMME NDED KD-EPI EGF R REFIT CALCULATI ON THAT DOES NOT INCLUDE A COEFFICIENT FOR RACE. FOR MORE INFORMATION, SE E ANNOUNCEMENT [email or web address] eGFR (2020 CKD-EPI) 122 >60 (test code = 94680) ML/MIN/1.73 CALC BUN/CREAT (test 12 RATIO 6-28 code = 2235) SODIUM (test code = 141 MEQ/L 110-929 8820) POTASSIUM (test code 4.0 MEQ/L 3.5-5.4 = [...] = 92 U/L 5-40 H 2219) HEMOGLOBIN [id number] 03:14:31 Test Item Value Reference Range Interpretation Comments HEMOGLOBIN A1c (test code = 70437) 6.0 % 4.2-5.6 H CBC W/AUTO DIFF WITH [id number] 03:06:02 Test Item Value Reference Range Interpretation [...] RBCS 0.00 K/UL 0.00-0.11 (test code = 40104) CBC W/AUTO [id number] 00:00:00 Test Item Value Reference Range Interpretation [...] NUCLEATED RBCS (test code = 0.00 K/UL 01692) CBC W/AUTO [id number] 00:00:00 Test Item Value Reference Range Interpretation [...] NUCLEATED RBCS (test code = 0.00 K/UL 60331) CBC W/AUTO [id number] 00:00:00 Test Item Value Reference Range Interpretation [...] NUCLEATED RBCS (test code = 0.00 K/UL 87326) HEMOGLOBIN [id number] 00:00:00 Test Item Value Reference Range Interpretation Comments HEMOGLOBIN A1c (test code = 31697) 6.0 % HEMOGLOBIN [id number] 00:00:00 Test Item Value Reference Range Interpretation Comments HEMOGLOBIN A1c (test code = 56386) 6.0 % HEMOGLOBIN [id number] 00:00:00 Test Item Value Reference Range Interpretation Comments HEMOGLOBIN A1c (test code = 73119) 6.0 % LIPID [id number] 00:00:00 Test Item Value Reference Range Interpretation Comments CHOLESTEROL (test code = 2210) 124 MG/DL TRIGLYCERIDES (test code = 2232) 69 MG/DL HDL CHOLESTEROL (test code = 2220) 39 MG/DL CALC LDL CHOL (test code = 2237) 70 MG/DL RISK RATIO LDL/HDL (test code = 1.79 RATIO 2238) LIPID [id number] 00:00:00 Test Item Value Reference Range Interpretation Comments CHOLESTEROL (test code = 2210) 124 MG/DL TRIGLYCERIDES (test code = 2232) 69 MG/DL HDL CHOLESTEROL (test code = 2220) 39 MG/DL CALC LDL CHOL (test code = 2237) 70 MG/DL RISK RATIO LDL/HDL (test code = 1.79 RATIO 2238) COMPREHENSIVE METABOLIC [id number] 00:00:00 Test Item Value Reference Range Interpretation Comments GLUCOSE (test code = 2217) 77 MG/DL BUN (test code = 2208) 8 MG/DL CREATININE (test code = 2214) 0.67 MG/DL eGFR (2020 CKD-EPI) (test 122 ML/MIN/1.73 code = 86619) CALC BUN/CREAT (test code = 12 RATIO [...] code = 2219) 92 U/L COMPREHENSIVE METABOLIC [id number] 00:00:00 Test Item Value Reference Range Interpretation Comments GLUCOSE (test code = 2217) 77 MG/DL BUN (test code = 2208) 8 MG/DL CREATININE (test code = 2214) 0.67 MG/DL eGFR (2020 CKD-EPI) (test 122 ML/MIN/1.73 code = 45314) CALC BUN/CREAT (test code = 12 RATIO [...] code = 2219) 92 U/L CBC W/AUTO [id number] 00:00:00 Test Item Value Reference Range Interpretation [...] NUCLEATED RBCS (test code = 0.00 K/UL 01355) CBC W/AUTO [id number] 00:00:00 Test Item Value Reference Range Interpretation [...] NUCLEATED RBCS (test code = 0.00 K/UL 46687) CBC W/AUTO [id number] 00:00:00 Test Item Value Reference Range Interpretation [...] NUCLEATED RBCS (test code = 0.00 K/UL 03449) CBC W/AUTO [id number] 00:00:00 Test Item Value Reference Range Interpretation [...] NUCLEATED RBCS (test code = 0.00 K/UL 18432) HEMOGLOBIN [id number] 00:00:00 Test Item Value Reference Range Interpretation Comments HEMOGLOBIN A1c (test code = 75061) 6.0 % HEMOGLOBIN [id number] 00:00:00 Test Item Value Reference Range Interpretation Comments HEMOGLOBIN A1c (test code = 69675) 6.0 % HEMOGLOBIN [id number] 00:00:00 Test Item Value Reference Range Interpretation Comments HEMOGLOBIN A1c (test code = 01489) 6.0 % LIPID [id number] 00:00:00 Test Item Value Reference Range Interpretation Comments CHOLESTEROL (test code = 2210) 124 MG/DL TRIGLYCERIDES (test code = 2232) 69 MG/DL HDL CHOLESTEROL (test code = 2220) 39 MG/DL CALC LDL CHOL (test code = 2237) 70 MG/DL RISK RATIO LDL/HDL (test code = 1.79 RATIO 2238) LIPID [id number] 00:00:00 Test Item Value Reference Range Interpretation Comments CHOLESTEROL (test code = 2210) 124 MG/DL TRIGLYCERIDES (test code = 2232) 69 MG/DL HDL CHOLESTEROL (test code = 2220) 39 MG/DL CALC LDL CHOL (test code = 2237) 70 MG/DL RISK RATIO LDL/HDL (test code = 1.79 RATIO 2238) COMPREHENSIVE METABOLIC [id number] 00:00:00 Test Item Value Reference Range Interpretation Comments GLUCOSE (test code = 2217) 77 MG/DL BUN (test code = 2208) 8 MG/DL CREATININE (test code = 2214) 0.67 MG/DL eGFR (2020 CKD-EPI) (test 122 ML/MIN/1.73 code = 92376) CALC BUN/CREAT (test code = 12 RATIO [...] code = 2219) 92 U/L COMPREHENSIVE METABOLIC [id number] 00:00:00 Test Item Value Reference Range Interpretation Comments GLUCOSE (test code = 2217) 77 MG/DL BUN (test code = 2208) 8 MG/DL CREATININE (test code = 2214) 0.67 MG/DL eGFR (2020 CKD-EPI) (test 122 ML/MIN/1.73 code = 11947) CALC BUN/CREAT (test code = 12 RATIO [...] code = 2219) 92 U/L CBC W/AUTO [id number] 00:00:00 Test Item Value Reference Range Interpretation [...] NUCLEATED RBCS (test code = 0.00 K/UL 97534) CBC W/AUTO [id number] 00:00:00 Test Item Value Reference Range Interpretation [...] NUCLEATED RBCS (test code = 0.00 K/UL 21661) HEMOGLOBIN [id number] 00:00:00 Test Item Value Reference Range Interpretation Comments HEMOGLOBIN A1c (test code = 30558) 6.0 % HEMOGLOBIN [id number] 00:00:00 Test Item Value Reference Range Interpretation Comments HEMOGLOBIN A1c (test code = 79412) 6.0 % HEMOGLOBIN [id number] 00:00:00 Test Item Value Reference Range Interpretation Comments HEMOGLOBIN A1c (test code = 87946) 6.0 % LIPID [id number] 00:00:00 Test Item Value Reference Range Interpretation Comments CHOLESTEROL (test code = 2210) 124 MG/DL TRIGLYCERIDES (test code = 2232) 69 MG/DL HDL CHOLESTEROL (test code = 2220) 39 MG/DL CALC LDL CHOL (test code = 2237) 70 MG/DL RISK RATIO LDL/HDL (test code = 1.79 RATIO 2238) LIPID [id number] 00:00:00 Test Item Value Reference Range Interpretation Comments CHOLESTEROL (test code = 2210) 124 MG/DL TRIGLYCERIDES (test code = 2232) 69 MG/DL HDL CHOLESTEROL (test code = 2220) 39 MG/DL CALC LDL CHOL (test code = 2237) 70 MG/DL RISK RATIO LDL/HDL (test code = 1.79 RATIO 2238) COMPREHENSIVE METABOLIC [id number] 00:00:00 Test Item Value Reference Range Interpretation Comments GLUCOSE (test code = 2217) 77 MG/DL BUN (test code = 2208) 8 MG/DL CREATININE (test code = 2214) 0.67 MG/DL eGFR (2020 CKD-EPI) (test 122 ML/MIN/1.73 code = 11232) CALC BUN/CREAT (test code = 12 RATIO [...] code = 2219) 92 U/L COMPREHENSIVE METABOLIC [id number] 00:00:00 Test Item Value Reference Range Interpretation Comments GLUCOSE (test code = 2217) 77 MG/DL BUN (test code = 2208) 8 MG/DL CREATININE (test code = 2214) 0.67 MG/DL eGFR (2020 CKD-EPI) (test 122 ML/MIN/1.73 code = 54340) CALC BUN/CREAT (test code = 12 RATIO [...] 2219) 92 U/L MR KNEE LEFT WO [id number] 21:23:01 Stable MRI with lateral patellar subluxation [...] present. No suprapatellar joint effusion is present. MENISCI:Medial meniscus: Intact Lateral meniscus: Intact LIGAMENTS AND TENDONS:The is attenuation ofthe medial patellofemoral retinaculum with mildthickening of the lateral patellofemoral retinaculum.The extensormechanism, cruciate ligaments, medial collateral ligament and [...] sharp pain after a leg press.COMPARISON: Plain radiograph from 03/16/2020, knee MR 10/22/2017.TECHNIQUE AND FINDINGS:1.5 Josselin multiplanar multi weighted MR imaging of the left knee wasperformed without contrast.BONE AND JOINT:The patellofemoral compartment: Lateral patellar subluxation is present.Grade 1 chondral loss of the lateral patellar and femoral articularsurfaces.Medial compartment: The chondral surfaces are intact. Lateral compartment: The chondralsurfaces are intact. Bone marrow: Mild T2 bone marrow signal intensity increase is seen at themedialmargin of the patella. No focal lesions or [...] reviewed this study and agree with the abovereport.[facility] 2020-[facility]-16 13:46:56 [...] thePA view. No fracture is appreciated.IMPRESSIONLarge effusion.No fracture.[facility], [id number] 00:00:00 Test Item Value Reference Range Interpretation Comments HCG, QUANTITATIVE (test code = <5 MIU/ML 2506) HCG, [id number] 00:00:00 Test Item Value Reference Range Interpretation Comments HCG, QUANTITATIVE (test code = <5 MIU/ML 2506) HCG, [id number] 00:00:00 Test Item Value Reference Range Interpretation Comments HCG, QUANTITATIVE (test code = <5 MIU/ML 2506) HCG, [id number] 00:00:00 Test Item Value Reference Range Interpretation Comments HCG, QUANTITATIVE (test code = <5 MIU/ML 2506) HCG, [id number] 00:00:00 Test Item Value Reference Range Interpretation Comments HCG, QUANTITATIVE (test code = <5 MIU/ML 2506) HCG, [id number] 00:00:00 Test Item Value Reference Range Interpretation Comments HCG, QUANTITATIVE (test code = <5 MIU/ML 2506) HCG, [id number] 00:00:00 Test Item Value Reference Range Interpretation Comments HCG, QUANTITATIVE (test code = <5 MIU/ML 2506) HCG, [id number] 00:00:00 Test Item Value Reference Range Interpretation Comments HCG, QUANTITATIVE (test code = <5 MIU/ML 2506) HCG, [id number] 00:00:00 Test Item Value Reference Range Interpretation Comments HCG, QUANTITATIVE (test code = <5 MIU/ML 2506) HCG, [id number] 00:00:00 Test Item Value Reference Range Interpretation Comments HCG, QUANTITATIVE (test TEST NOT PERFORMED code = 2506) MIU/ML HCG, [id number] 00:00:00 Test Item Value Reference Range Interpretation Comments HCG, QUANTITATIVE (test TEST NOT PERFORMED code = 2506) MIU/ML HCG, [id number] 00:00:00 Test Item Value Reference Range Interpretation Comments HCG, QUANTITATIVE (test TEST NOT PERFORMED code = 2506) MIU/ML HCG, [id number] 00:00:00 Test Item Value Reference Range Interpretation Comments HCG, QUANTITATIVE (test TEST NOT PERFORMED code = 2506) MIU/ML HCG, [id number] 00:00:00 Test Item Value Reference Range Interpretation Comments HCG, QUANTITATIVE (test TEST NOT PERFORMED code = 2506) MIU/ML HCG, [id number] 00:00:00 Test Item Value Reference Range Interpretation Comments HCG, QUANTITATIVE (test TEST NOT PERFORMED code = 2506) MIU/ML HCG, [id number] 00:00:00 Test Item Value Reference Range Interpretation Comments HCG, QUANTITATIVE (test TEST NOT PERFORMED code = 2506) MIU/ML HCG, [id number] 00:00:00 Test Item Value Reference Range Interpretation Comments HCG, QUANTITATIVE (test TEST NOT PERFORMED code = 2506) MIU/ML HCG, [id number] 00:00:00 Test Item Value Reference Range Interpretation Comments HCG, QUANTITATIVE (test TEST NOT PERFORMED code = 2506) MIU/ML CHLAMYDIA, AMPLIFIED, [id number] 00:00:00 Test Item Value Reference Range Interpretation Comments CHLAMYDIA, TMA (test code = 02834) NEGATIVE CHLAMYDIA, AMPLIFIED, [id number] 00:00:00 Test Item Value Reference Range Interpretation Comments CHLAMYDIA, TMA (test code = 39322) NEGATIVE GC, AMPLIFIED, [id number] 00:00:00 Test Item Value Reference Range Interpretation Comments GONORRHEA, TMA (test code = 39761) NEGATIVE GC, AMPLIFIED, [id number] 00:00:00 Test Item Value Reference Range Interpretation Comments GONORRHEA, TMA (test code = 55536) NEGATIVE CHLAMYDIA, AMPLIFIED, [id number] 00:00:00 Test Item Value Reference Range Interpretation Comments CHLAMYDIA, TMA (test code = 04454) NEGATIVE CHLAMYDIA, AMPLIFIED, [id number] 00:00:00 Test Item Value Reference Range Interpretation Comments CHLAMYDIA, TMA (test code = 77623) NEGATIVE GC, AMPLIFIED, [id number] 00:00:00 Test Item Value Reference Range Interpretation Comments GONORRHEA, TMA (test code = 66045) NEGATIVE GC, AMPLIFIED, [id number] 00:00:00 Test Item Value Reference Range Interpretation Comments GONORRHEA, TMA (test code = 61828) NEGATIVE CHLAMYDIA, AMPLIFIED, [id number] 00:00:00 Test Item Value Reference Range Interpretation Comments CHLAMYDIA, TMA (test code = 55528) NEGATIVE CHLAMYDIA, AMPLIFIED, [id number] 00:00:00 Test Item Value Reference Range Interpretation Comments CHLAMYDIA, TMA (test code = 41960) NEGATIVE GC, AMPLIFIED, [id number] 00:00:00 Test Item Value Reference Range Interpretation Comments GONORRHEA, TMA (test code = 25066) NEGATIVE GC, AMPLIFIED, [id number] 00:00:00 Test Item Value Reference Range Interpretation Comments GONORRHEA, TMA (test code = 28906) NEGATIVE HIV AB/AG COMBO RFLX [id number] 00:00:00 Test Item Value Reference Range Interpretation Comments HIV 1/2 4TH GEN, RFLX CONF (test NON-REACTIVE code = 3514) HIV AB/AG COMBO RFLX [id number] 00:00:00 Test Item Value Reference Range Interpretation Comments HIV 1/2 4TH GEN, RFLX CONF (test NON-REACTIVE code = 3514) ACUTE HEPATITIS [id number] 00:00:00 Test Item Value Reference Range Interpretation Comments HEPATITIS A IgM (test code = NON-REACTIVE 85318) HEPATITIS B CORE IgM (test code NON-REACTIVE = 4644) HEPATITIS B SURF AG (test code = NON-REACTIVE 3849) HEPATITIS C ANTIBODY (test code NON-REACTIVE = 4675) INTERPRETATION HEPATITIS A: (NOTE) (test code = 2552) INTERPRETATION HEPATITIS B: (NOTE) (test code = 55029) INTERPRETATION HEPATITIS C: (NOTE) (test code = 52550) ACUTE HEPATITIS [id number] 00:00:00 Test Item Value Reference Range Interpretation Comments HEPATITIS A IgM (test code = NON-REACTIVE 13010) HEPATITIS B CORE IgM (test code NON-REACTIVE = 4644) HEPATITIS B SURF AG (test code = NON-REACTIVE 2739) HEPATITIS C ANTIBODY (test code NON-REACTIVE = 4675) INTERPRETATION HEPATITIS A: (NOTE) (test code = 2552) INTERPRETATION HEPATITIS B: (NOTE) (test code = 39461) INTERPRETATION HEPATITIS C: (NOTE) (test code = 44041) [id number] 00:00:00 Test Item Value Reference Range Interpretation Comments RPR RESULT (test code = NON-REACTIVE 3501) RPR TITER (test code = 3500) NOT INDIC. TITER [id number] 00:00:00 Test Item Value Reference Range Interpretation Comments RPR RESULT (test code = NON-REACTIVE 3501) RPR TITER (test code = 3500) NOT INDIC. TITER [id number] 00:00:00 Test Item Value Reference Range Interpretation Comments RPR RESULT (test code = NON-REACTIVE 3501) RPR TITER (test code = 3500) NOT INDIC. TITER HIV AB/AG COMBO RFLX [id number] 00:00:00 Test Item Value Reference Range Interpretation Comments HIV 1/2 4TH GEN, RFLX CONF (test NON-REACTIVE code = 3514) HIV AB/AG COMBO RFLX [id number] 00:00:00 Test Item Value Reference Range Interpretation Comments HIV 1/2 4TH GEN, RFLX CONF (test NON-REACTIVE code = 3514) HIV AB/AG COMBO RFLX [id number] 00:00:00 Test Item Value Reference Range Interpretation Comments HIV 1/2 4TH GEN, RFLX CONF (test NON-REACTIVE code = 3514) ACUTE HEPATITIS [id number] 00:00:00 Test Item Value Reference Range Interpretation Comments HEPATITIS A IgM (test code = NON-REACTIVE 48107) HEPATITIS B CORE IgM (test code NON-REACTIVE = 4644) HEPATITIS B SURF AG (test code = NON-REACTIVE 2739) HEPATITIS C ANTIBODY (test code NON-REACTIVE = 4675) INTERPRETATION HEPATITIS A: (NOTE) (test code = 2552) INTERPRETATION HEPATITIS B: (NOTE) (test code = 64863) INTERPRETATION HEPATITIS C: (NOTE) (test code = 81149) ACUTE HEPATITIS [id number] 00:00:00 Test Item Value Reference Range Interpretation Comments HEPATITIS A IgM (test code = NON-REACTIVE 93240) HEPATITIS B CORE IgM (test code NON-REACTIVE = 4644) HEPATITIS B SURF AG (test code = NON-REACTIVE 2739) HEPATITIS C ANTIBODY (test code NON-REACTIVE = 4675) INTERPRETATION HEPATITIS A: (NOTE) (test code = 2552) INTERPRETATION HEPATITIS B: (NOTE) (test code = 33240) INTERPRETATION HEPATITIS C: (NOTE) (test code = 76745) [id number] 00:00:00 Test Item Value Reference Range Interpretation Comments RPR RESULT (test code = NON-REACTIVE 3501) RPR TITER (test code = 3500) NOT INDIC. TITER [id number] 00:00:00 Test Item Value Reference Range Interpretation Comments RPR RESULT (test code = NON-REACTIVE 3501) RPR TITER (test code = 3500) NOT INDIC. TITER [id number] 00:00:00 Test Item Value Reference Range Interpretation Comments RPR RESULT (test code = NON-REACTIVE 3501) RPR TITER (test code = 3500) NOT INDIC. TITER HIV AB/AG COMBO RFLX [id number] 00:00:00 Test Item Value Reference Range Interpretation Comments HIV 1/2 4TH GEN, RFLX CONF (test NON-REACTIVE code = 3514) ACUTE HEPATITIS [id number] 00:00:00 Test Item Value Reference Range Interpretation Comments HEPATITIS A IgM (test code = NON-REACTIVE 13108) HEPATITIS B CORE IgM (test code NON-REACTIVE = 4644) HEPATITIS B SURF AG (test code = NON-REACTIVE 2739) HEPATITIS C ANTIBODY (test code NON-REACTIVE = 4675) INTERPRETATION HEPATITIS A: (NOTE) (test code = 2552) INTERPRETATION HEPATITIS B: (NOTE) (test code = 97820) INTERPRETATION HEPATITIS C: (NOTE) (test code = 72815) ACUTE HEPATITIS [id number] 00:00:00 Test Item Value Reference Range Interpretation Comments HEPATITIS A IgM (test code = NON-REACTIVE 96810) HEPATITIS B CORE IgM (test code NON-REACTIVE = 4644) HEPATITIS B SURF AG (test code = NON-REACTIVE 2739) HEPATITIS C ANTIBODY (test code NON-REACTIVE = 4675) INTERPRETATION HEPATITIS A: (NOTE) (test code = 2552) INTERPRETATION HEPATITIS B: (NOTE) (test code = 80497) INTERPRETATION HEPATITIS C: (NOTE) (test code = 06958) [id number] 00:00:00 Test Item Value Reference Range Interpretation Comments RPR RESULT (test code = NON-REACTIVE 3501) RPR TITER (test code = 3500) NOT INDIC. TITER [id number] 00:00:00 Test Item Value Reference Range Interpretation Comments RPR RESULT (test code = NON-REACTIVE 3501) RPR TITER (test code = 3500) NOT INDIC. TITER [id number] 00:00:00 Test Item Value Reference Range Interpretation Comments RPR RESULT (test code = NON-REACTIVE 3501) RPR TITER (test code = 3500) NOT INDIC. TITER HIV AB/AG COMBO RFLX [id number] 00:00:00 Test Item Value Reference Range Interpretation Comments HIV 1/2 4TH GEN, RFLX CONF (test NON-REACTIVE code = 3514) HIV AB/AG COMBO RFLX [id number] 00:00:00 Test Item Value Reference Range Interpretation Comments HIV 1/2 4TH GEN, RFLX CONF (test NON-REACTIVE code = 3514) ACUTE HEPATITIS [id number] 00:00:00 Test Item Value Reference Range Interpretation Comments HEPATITIS A IgM (test code = NON-REACTIVE 74677) HEPATITIS B CORE IgM (test code NON-REACTIVE = 4644) HEPATITIS B SURF AG (test code = NON-REACTIVE 2739) HEPATITIS C ANTIBODY (test code NON-REACTIVE = 4675) HCV INDEX (test code = 47406) 0.13 INTERPRETATION HEPATITIS A: (NOTE) (test code = 2552) INTERPRETATION HEPATITIS B: (NOTE) (test code = 77948) INTERPRETATION HEPATITIS C: (NOTE) (test code = 17623) ACUTE HEPATITIS [id number] 00:00:00 Test Item Value Reference Range Interpretation Comments HEPATITIS A IgM (test code = NON-REACTIVE 24926) HEPATITIS B CORE IgM (test code NON-REACTIVE = 4644) HEPATITIS B SURF AG (test code = NON-REACTIVE 2739) HEPATITIS C ANTIBODY (test code NON-REACTIVE = 4675) HCV INDEX (test code = 13207) 0.13 INTERPRETATION HEPATITIS A: (NOTE) (test code = 2552) INTERPRETATION HEPATITIS B: (NOTE) (test code = 13556) INTERPRETATION HEPATITIS C: (NOTE) (test code = 04154) GC AND CHLAMYDIA, AMPLIFIED, [id number] 00:00:00 Test Item Value Reference Range Interpretation Comments GONORRHEA, TMA (test code = 24356) NEGATIVE CHLAMYDIA, TMA (test code = 88465) NEGATIVE GC AND CHLAMYDIA, AMPLIFIED, [id number] 00:00:00 Test Item Value Reference Range Interpretation Comments GONORRHEA, TMA (test code = 46276) NEGATIVE CHLAMYDIA, TMA (test code = 70903) NEGATIVE [id number] 00:00:00 Test Item Value Reference Range Interpretation Comments RPR RESULT (test code = NON-REACTIVE 3501) RPR TITER (test code = 3500) NOT INDIC. TITER [id number] 00:00:00 Test Item Value Reference Range Interpretation Comments RPR RESULT (test code = NON-REACTIVE 3501) RPR TITER (test code = 3500) NOT INDIC. TITER [id number] 00:00:00 Test Item Value Reference Range Interpretation Comments RPR RESULT (test code = NON-REACTIVE 3501) RPR TITER (test code = 3500) NOT INDIC. TITER HIV AB/AG COMBO RFLX [id number] 00:00:00 Test Item Value Reference Range Interpretation Comments HIV 1/2 4TH GEN, RFLX CONF (test NON-REACTIVE code = 3514) HIV AB/AG COMBO RFLX [id number] 00:00:00 Test Item Value Reference Range Interpretation Comments HIV 1/2 4TH GEN, RFLX CONF (test NON-REACTIVE code = 3514) HIV AB/AG COMBO RFLX [id number] 00:00:00 Test Item Value Reference Range Interpretation Comments HIV 1/2 4TH GEN, RFLX CONF (test NON-REACTIVE code = 3514) ACUTE HEPATITIS [id number] 00:00:00 Test Item Value Reference Range Interpretation Comments HEPATITIS A IgM (test code = NON-REACTIVE 16816) HEPATITIS B CORE IgM (test code NON-REACTIVE = 4644) HEPATITIS B SURF AG (test code = NON-REACTIVE 2739) HEPATITIS C ANTIBODY (test code NON-REACTIVE = 4675) HCV INDEX (test code = 75741) 0.13 INTERPRETATION HEPATITIS A: (NOTE) (test code = 2552) INTERPRETATION HEPATITIS B: (NOTE) (test code = 66245) INTERPRETATION HEPATITIS C: (NOTE) (test code = 69476) ACUTE HEPATITIS [id number] 00:00:00 Test Item Value Reference Range Interpretation Comments HEPATITIS A IgM (test code = NON-REACTIVE 49771) HEPATITIS B CORE IgM (test code NON-REACTIVE = 4644) HEPATITIS B SURF AG (test code = NON-REACTIVE 2739) HEPATITIS C ANTIBODY (test code NON-REACTIVE = 4675) HCV INDEX (test code = 93523) 0.13 INTERPRETATION HEPATITIS A: (NOTE) (test code = 2552) INTERPRETATION HEPATITIS B: (NOTE) (test code = 73348) INTERPRETATION HEPATITIS C: (NOTE) (test code = 33340) HIV AB/AG COMBO RFLX [id number] 00:00:00 Test Item Value Reference Range Interpretation Comments HIV 1/2 4TH GEN, RFLX CONF (test NON-REACTIVE code = 3514) GC AND CHLAMYDIA, AMPLIFIED, [id number] 00:00:00 Test Item Value Reference Range Interpretation Comments GONORRHEA, TMA (test code = 33338) NEGATIVE CHLAMYDIA, TMA (test code = 04081) NEGATIVE GC AND CHLAMYDIA, AMPLIFIED, [id number] 00:00:00 Test Item Value Reference Range Interpretation Comments GONORRHEA, TMA (test code = 65458) NEGATIVE CHLAMYDIA, TMA (test code = 08868) NEGATIVE [id number] 00:00:00 Test Item Value Reference Range Interpretation Comments RPR RESULT (test code = NON-REACTIVE 3501) RPR TITER (test code = 3500) NOT INDIC. TITER [id number] 00:00:00 Test Item Value Reference Range Interpretation Comments RPR RESULT (test code = NON-REACTIVE 3501) RPR TITER (test code = 3500) NOT INDIC. TITER [id number] 00:00:00 Test Item Value Reference Range Interpretation Comments RPR RESULT (test code = NON-REACTIVE 3501) RPR TITER (test code = 3500) NOT INDIC. TITER ACUTE HEPATITIS [id number] 00:00:00 Test Item Value Reference Range Interpretation Comments HEPATITIS A IgM (test code = NON-REACTIVE 52899) HEPATITIS B CORE IgM (test code NON-REACTIVE = 4644) HEPATITIS B SURF AG (test code = NON-REACTIVE 2739) HEPATITIS C ANTIBODY (test code NON-REACTIVE = 4675) HCV INDEX (test code = 79154) 0.13 INTERPRETATION HEPATITIS A: (NOTE) (test code = 2552) INTERPRETATION HEPATITIS B: (NOTE) (test code = 00694) INTERPRETATION HEPATITIS C: (NOTE) (test code = 90318) ACUTE HEPATITIS [id number] 00:00:00 Test Item Value Reference Range Interpretation Comments HEPATITIS A IgM (test code = NON-REACTIVE 73923) HEPATITIS B CORE IgM (test code NON-REACTIVE = 4644) HEPATITIS B SURF AG (test code = NON-REACTIVE 2739) HEPATITIS C ANTIBODY (test code NON-REACTIVE = 4675) HCV INDEX (test code = 96119) 0.13 INTERPRETATION HEPATITIS A: (NOTE) (test code = 2552) INTERPRETATION HEPATITIS B: (NOTE) (test code = 96329) INTERPRETATION HEPATITIS C: (NOTE) (test code = 12563) GC AND CHLAMYDIA, AMPLIFIED, [id number] 00:00:00 Test Item Value Reference Range Interpretation Comments GONORRHEA, TMA (test code = 93945) NEGATIVE CHLAMYDIA, TMA (test code = 42545) NEGATIVE GC AND CHLAMYDIA, AMPLIFIED, [id number] 00:00:00 Test Item Value Reference Range Interpretation Comments GONORRHEA, TMA (test code = 17451) NEGATIVE CHLAMYDIA, TMA (test code = 98504) NEGATIVE [id number] 00:00:00 Test Item Value Reference Range Interpretation Comments RPR RESULT (test code = NON-REACTIVE 3501) RPR TITER (test code = 3500) NOT INDIC. TITER [id number] 00:00:00 Test Item Value Reference Range Interpretation Comments RPR RESULT (test code = NON-REACTIVE 3501) RPR TITER (test code = 3500) NOT INDIC. TITER [id number] 00:00:00 Test Item Value Reference Range Interpretation Comments RPR RESULT (test code = NON-REACTIVE 3501) RPR TITER (test code = 3500) NOT INDIC. TITER [id number] 00:00:00 Test Item Value Reference Range Interpretation Comments RPR RESULT (test code = NON-REACTIVE 3501) RPR TITER (test code = 3500) NOT INDIC. TITER [id number] 00:00:00 Test Item Value Reference Range Interpretation Comments RPR RESULT (test code = NON-REACTIVE 3501) RPR TITER (test code = 3500) NOT INDIC. TITER [id number] 00:00:00 Test Item Value Reference Range Interpretation Comments RPR RESULT (test code = NON-REACTIVE 3501) RPR TITER (test code = 3500) NOT INDIC. TITER HIV AB/AG COMBO RFLX [id number] 00:00:00 Test Item Value Reference Range Interpretation Comments HIV 1/2 4TH GEN, RFLX CONF (test NON-REACTIVE code = 3514) HIV AB/AG COMBO RFLX [id number] 00:00:00 Test Item Value Reference Range Interpretation Comments HIV 1/2 4TH GEN, RFLX CONF (test NON-REACTIVE code = 3514) [id number] 00:00:00 Test Item Value Reference Range Interpretation Comments RPR RESULT (test code = NON-REACTIVE 3501) RPR TITER (test code = 3500) NOT INDIC. TITER [id number] 00:00:00 Test Item Value Reference Range Interpretation Comments RPR RESULT (test code = NON-REACTIVE 3501) RPR TITER (test code = 3500) NOT INDIC. TITER [id number] 00:00:00 Test Item Value Reference Range Interpretation Comments RPR RESULT (test code = NON-REACTIVE 3501) RPR TITER (test code = 3500) NOT INDIC. TITER [id number] 00:00:00 Test Item Value Reference Range Interpretation Comments RPR RESULT (test code = NON-REACTIVE 3501) RPR TITER (test code = 3500) NOT INDIC. TITER HIV AB/AG COMBO RFLX [id number] 00:00:00 Test Item Value Reference Range Interpretation Comments HIV 1/2 4TH GEN, RFLX CONF (test NON-REACTIVE code = 3514) HIV AB/AG COMBO RFLX [id number] 00:00:00 Test Item Value Reference Range Interpretation Comments HIV 1/2 4TH GEN, RFLX CONF (test NON-REACTIVE code = 3514) [id number] 00:00:00 Test Item Value Reference Range Interpretation Comments RPR RESULT (test code = NON-REACTIVE 3501) RPR TITER (test code = 3500) NOT INDIC. TITER [id number] 00:00:00 Test Item Value Reference Range Interpretation Comments RPR RESULT (test code = NON-REACTIVE 3501) RPR TITER (test code = 3500) NOT INDIC. TITER HIV AB/AG COMBO RFLX [id number] 00:00:00 Test Item Value Reference Range Interpretation Comments HIV 1/2 4TH GEN, RFLX CONF (test NON-REACTIVE code = 3514) HIV AB/AG COMBO RFLX [id number] 00:00:00 Test Item Value Reference Range Interpretation Comments HIV 1/2 4TH GEN, RFLX CONF (test NON-REACTIVE code = 3514) GC AND CHLAMYDIA, AMPLIFIED, [id number] 00:00:00 Test Item Value Reference Range Interpretation Comments GONORRHEA, TMA (test code = 98962) NEGATIVE CHLAMYDIA, TMA (test code = 92077) NEGATIVE GC AND CHLAMYDIA, AMPLIFIED, [id number] 00:00:00 Test Item Value Reference Range Interpretation Comments GONORRHEA, TMA (test code = 37757) NEGATIVE CHLAMYDIA, TMA (test code = 38828) NEGATIVE GC AND CHLAMYDIA, AMPLIFIED, [id number] 00:00:00 Test Item Value Reference Range Interpretation Comments GONORRHEA, TMA (test code = 86786) NEGATIVE CHLAMYDIA, TMA (test code = 91580) NEGATIVE GC AND CHLAMYDIA, AMPLIFIED, [id number] 00:00:00 Test Item Value Reference Range Interpretation Comments GONORRHEA, TMA (test code = 66300) NEGATIVE CHLAMYDIA, TMA (test code = 89176) NEGATIVE GC AND CHLAMYDIA, AMPLIFIED, [id number] 00:00:00 Test Item Value Reference Range Interpretation Comments GONORRHEA, TMA (test code = 44844) NEGATIVE CHLAMYDIA, TMA (test code = 57730) NEGATIVE GC AND CHLAMYDIA, AMPLIFIED, [id number] 00:00:00 Test Item Value Reference Range Interpretation Comments GONORRHEA, TMA (test code = 71015) NEGATIVE CHLAMYDIA, TMA (test code = 25913) NEGATIVE COMPREHENSIVE METABOLIC [id number] 00:00:00 Test Item Value Reference Range Interpretation Comments GLUCOSE (test code = 2217) 127 MG/DL BUN (test code = 2208) 5 MG/DL CREATININE (test code = 2214) 0.58 MG/DL eGFR AMER. (test code 148 ML/MIN/1.73 = 06793) eGFR NON- AMER. (test 128 ML/MIN/1.73 code = 67852) CALC BUN/CREAT (test code = 9 RATIO [...] code = 2219) 18 U/L COMPREHENSIVE METABOLIC [id number] 00:00:00 Test Item Value Reference Range Interpretation Comments GLUCOSE (test code = 2217) 127 MG/DL BUN (test code = 2208) 5 MG/DL CREATININE (test code = 2214) 0.58 MG/DL eGFR AMER. (test code 148 ML/MIN/1.73 = 00842) eGFR NON- AMER. (test 128 ML/MIN/1.73 code = 83308) CALC BUN/CREAT (test code = 9 RATIO [...] (test code = 2219) 18 U/L LIPID [id number] 00:00:00 Test Item Value Reference Range Interpretation Comments CHOLESTEROL (test code = 2210) 186 MG/DL TRIGLYCERIDES (test code = 2232) 106 MG/DL HDL CHOLESTEROL (test code = 2220) 54 MG/DL CALC LDL CHOL (test code = 2237) 111 MG/DL RISK RATIO LDL/HDL (test code = 2.05 RATIO 2238) LIPID [id number] 00:00:00 Test Item Value Reference Range Interpretation Comments CHOLESTEROL (test code = 2210) 186 MG/DL TRIGLYCERIDES (test code = 2232) 106 MG/DL HDL CHOLESTEROL (test code = 2220) 54 MG/DL CALC LDL CHOL (test code = 2237) 111 MG/DL RISK RATIO LDL/HDL (test code = 2.05 RATIO 2238) COMPREHENSIVE METABOLIC [id number] 00:00:00 Test Item Value Reference Range Interpretation Comments GLUCOSE (test code = 2217) 127 MG/DL BUN (test code = 2208) 5 MG/DL CREATININE (test code = 2214) 0.58 MG/DL eGFR AMER. (test code 148 ML/MIN/1.73 = 56655) eGFR NON- AMER. (test 128 ML/MIN/1.73 code = 09974) CALC BUN/CREAT (test code = 9 RATIO [...] code = 2219) 18 U/L COMPREHENSIVE METABOLIC [id number] 00:00:00 Test Item Value Reference Range Interpretation Comments GLUCOSE (test code = 2217) 127 MG/DL BUN (test code = 2208) 5 MG/DL CREATININE (test code = 2214) 0.58 MG/DL eGFR AMER. (test code 148 ML/MIN/1.73 = 63162) eGFR NON- AMER. (test 128 ML/MIN/1.73 code = 29935) CALC BUN/CREAT (test code = 9 RATIO [...] code = 2219) 18 U/L COMPREHENSIVE METABOLIC [id number] 00:00:00 Test Item Value Reference Range Interpretation Comments GLUCOSE (test code = 2217) 127 MG/DL BUN (test code = 2208) 5 MG/DL CREATININE (test code = 2214) 0.58 MG/DL eGFR AMER. (test code 148 ML/MIN/1.73 = 53056) eGFR NON- AMER. (test 128 ML/MIN/1.73 code = 50741) CALC BUN/CREAT (test code = 9 RATIO [...] (test code = 2219) 18 U/L LIPID [id number] 00:00:00 Test Item Value Reference Range Interpretation Comments CHOLESTEROL (test code = 2210) 186 MG/DL TRIGLYCERIDES (test code = 2232) 106 MG/DL HDL CHOLESTEROL (test code = 2220) 54 MG/DL CALC LDL CHOL (test code = 2237) 111 MG/DL RISK RATIO LDL/HDL (test code = 2.05 RATIO 2238) LIPID [id number] 00:00:00 Test Item Value Reference Range Interpretation Comments CHOLESTEROL (test code = 2210) 186 MG/DL TRIGLYCERIDES (test code = 2232) 106 MG/DL HDL CHOLESTEROL (test code = 2220) 54 MG/DL CALC LDL CHOL (test code = 2237) 111 MG/DL RISK RATIO LDL/HDL (test code = 2.05 RATIO 2238) COMPREHENSIVE METABOLIC [id number] 00:00:00 Test Item Value Reference Range Interpretation Comments GLUCOSE (test code = 2217) 127 MG/DL BUN (test code = 2208) 5 MG/DL CREATININE (test code = 2214) 0.58 MG/DL eGFR AMER. (test code 148 ML/MIN/1.73 = 22457) eGFR NON- AMER. (test 128 ML/MIN/1.73 code = 45439) CALC BUN/CREAT (test code = 9 RATIO [...] (test code = 2219) 18 U/L LIPID [id number] 00:00:00 Test Item Value Reference Range Interpretation Comments CHOLESTEROL (test code = 2210) 186 MG/DL TRIGLYCERIDES (test code = 2232) 106 MG/DL HDL CHOLESTEROL (test code = 2220) 54 MG/DL CALC LDL CHOL (test code = 2237) 111 MG/DL RISK RATIO LDL/HDL (test code = 2.05 RATIO 2238) LIPID [id number] 00:00:00 Test Item Value Reference Range Interpretation Comments CHOLESTEROL (test code = 2210) 186 MG/DL TRIGLYCERIDES (test code = 2232) 106 MG/DL HDL CHOLESTEROL (test code = 2220) 54 MG/DL CALC LDL CHOL (test code = 2237) 111 MG/DL RISK RATIO LDL/HDL (test code = 2.05 RATIO 2238) GC AND CHLAMYDIA, AMPLIFIED, [id number] 00:00:00 Test Item Value Reference Range Interpretation Comments GONORRHEA, TMA (test code = 90450) NEGATIVE CHLAMYDIA, TMA (test code = 81243) NEGATIVE GC AND CHLAMYDIA, AMPLIFIED, [id number] 00:00:00 Test Item Value Reference Range Interpretation Comments GONORRHEA, TMA (test code = 42907) NEGATIVE CHLAMYDIA, TMA (test code = 98046) NEGATIVE GC AND CHLAMYDIA, AMPLIFIED, [id number] 00:00:00 Test Item Value Reference Range Interpretation Comments GONORRHEA, TMA (test code = 59656) NEGATIVE CHLAMYDIA, TMA (test code = 07358) NEGATIVE GC AND CHLAMYDIA, AMPLIFIED, [id number] 00:00:00 Test Item Value Reference Range Interpretation Comments GONORRHEA, TMA (test code = 43530) NEGATIVE CHLAMYDIA, TMA (test code = 89166) NEGATIVE GC AND CHLAMYDIA, AMPLIFIED, [id number] 00:00:00 Test Item Value Reference Range Interpretation Comments GONORRHEA, TMA (test code = 34485) NEGATIVE CHLAMYDIA, TMA (test code = 29524) NEGATIVE GC AND CHLAMYDIA, AMPLIFIED, [id number] 00:00:00 Test Item Value Reference Range Interpretation Comments GONORRHEA, TMA (test code = 69832) NEGATIVE CHLAMYDIA, TMA (test code = 40766) NEGATIVE VAGINAL PATHOGENS DNA [id number] 00:00:00 Test Item Value Reference Range Interpretation Comments YOKO SPECIES (test code = 47252) POSITIVE G. VAGINALIS (test code = 52834) NEGATIVE T. VAGINALIS (test code = 11157) NEGATIVE VAGINAL PATHOGENS DNA [id number] 00:00:00 Test Item Value Reference Range Interpretation Comments YOKO SPECIES (test code = 99424) POSITIVE G. VAGINALIS (test code = 22606) NEGATIVE T. VAGINALIS (test code = 70399) NEGATIVE VAGINAL PATHOGENS DNA [id number] 00:00:00 Test Item Value Reference Range Interpretation Comments YOKO SPECIES (test code = 40712) POSITIVE G. VAGINALIS (test code = 53660) NEGATIVE T. VAGINALIS (test code = 00466) NEGATIVE VAGINAL PATHOGENS DNA [id number] 00:00:00 Test Item Value Reference Range Interpretation Comments YOKO SPECIES (test code = 83804) POSITIVE G. VAGINALIS (test code = 43460) NEGATIVE T. VAGINALIS (test code = 55100) NEGATIVE VAGINAL PATHOGENS DNA [id number] 00:00:00 Test Item Value Reference Range Interpretation Comments YOKO SPECIES (test code = 00097) POSITIVE G. VAGINALIS (test code = 12455) NEGATIVE T. VAGINALIS (test code = 15261) NEGATIVE VAGINAL PATHOGENS DNA [id number] 00:00:00 Test Item Value Reference Range Interpretation Comments YOKO SPECIES (test code = 44384) POSITIVE G. VAGINALIS (test code = 53529) NEGATIVE T. VAGINALIS (test code = 87303) NEGATIVE GC AND CHLAMYDIA, AMPLIFIED, [id number] 00:00:00 Test Item Value Reference Range Interpretation Comments GONORRHEA, TMA (test code = 44798) NEGATIVE CHLAMYDIA, TMA (test code = 35769) NEGATIVE GC AND CHLAMYDIA, AMPLIFIED, [id number] 00:00:00 Test Item Value Reference Range Interpretation Comments GONORRHEA, TMA (test code = 25063) NEGATIVE CHLAMYDIA, TMA (test code = 61936) NEGATIVE GC AND CHLAMYDIA, AMPLIFIED, [id number] 00:00:00 Test Item Value Reference Range Interpretation Comments GONORRHEA, TMA (test code = 09295) NEGATIVE CHLAMYDIA, TMA (test code = 22905) NEGATIVE GC AND CHLAMYDIA, AMPLIFIED, [id number] 00:00:00 Test Item Value Reference Range Interpretation Comments GONORRHEA, TMA (test code = 65563) NEGATIVE CHLAMYDIA, TMA (test code = 29068) NEGATIVE GC AND CHLAMYDIA, AMPLIFIED, [id number] 00:00:00 Test Item Value Reference Range Interpretation Comments GONORRHEA, TMA (test code = 28244) NEGATIVE CHLAMYDIA, TMA (test code = 60655) NEGATIVE GC AND CHLAMYDIA, AMPLIFIED, [id number] 00:00:00 Test Item Value Reference Range Interpretation Comments GONORRHEA, TMA (test code = 05004) NEGATIVE CHLAMYDIA, TMA (test code = 39353) NEGATIVE CULTURE, [id number] 00:00:00 Test Item Value Reference Range Interpretation Comments CULTURE, URINE (test SPECIMEN NUMBER: code = 89360) [id number] CULTURE, [id number] 00:00:00 Test Item Value Reference Range Interpretation Comments CULTURE, URINE (test SPECIMEN NUMBER: code = 03786) [id number] CULTURE, [id number] 00:00:00 Test Item Value Reference Range Interpretation Comments CULTURE, URINE (test SPECIMEN NUMBER: code = 23391) [id number] CULTURE, [id number] 00:00:00 Test Item Value Reference Range Interpretation Comments CULTURE, URINE (test SPECIMEN NUMBER: code = 75490) [id number] CULTURE, [id number] 00:00:00 Test Item Value Reference Range Interpretation Comments CULTURE, URINE (test SPECIMEN NUMBER: code = 78778) [id number] CULTURE, [id number] 00:00:00 Test Item Value Reference Range Interpretation Comments CULTURE, URINE (test SPECIMEN NUMBER: code = 36358) [id number] HEMOGLOBIN [id number] 00:00:00 Test Item Value Reference Range Interpretation Comments HEMOGLOBIN A1c (test code = 81454) 5.5 % HEMOGLOBIN [id number] 00:00:00 Test Item Value Reference Range Interpretation Comments HEMOGLOBIN A1c (test code = 45040) 5.5 % HEMOGLOBIN [id number] 00:00:00 Test Item Value Reference Range Interpretation Comments HEMOGLOBIN A1c (test code = 19279) 5.5 % CBC W/AUTO [id number] 00:00:00 Test Item Value Reference Range Interpretation [...] code = 1015) 310 K/UL CBC W/AUTO [id number] 00:00:00 Test Item Value Reference Range Interpretation [...] code = 1015) 310 K/UL CBC W/AUTO [id number] 00:00:00 Test Item Value Reference Range Interpretation [...] code = 1015) 310 K/UL COMPREHENSIVE METABOLIC [id number] 00:00:00 Test Item Value Reference Range Interpretation Comments GLUCOSE (test code = 2217) 73 MG/DL BUN (test code = 2208) 10 MG/DL CREATININE (test code = 2214) 0.51 MG/DL eGFR AMER. (test code 158 ML/MIN/1.73 = 00683) eGFR NON- AMER. (test 136 ML/MIN/1.73 code = 35509) CALCULATED BUN/CREAT (test 20 RATIO code = [...] code = 2219) 23 U/L COMPREHENSIVE METABOLIC [id number] 00:00:00 Test Item Value Reference Range Interpretation Comments GLUCOSE (test code = 2217) 73 MG/DL BUN (test code = 2208) 10 MG/DL CREATININE (test code = 2214) 0.51 MG/DL eGFR AMER. (test code 158 ML/MIN/1.73 = 00502) eGFR NON- AMER. (test 136 ML/MIN/1.73 code = 20839) CALCULATED BUN/CREAT (test 20 RATIO code = 2235) SODIUM (test code = 2231) 136 MEQ/L POTASSIUM (test code = 2228) 4.1 MEQ/L CHLORIDE (test code = 2215) 102 MEQ/L CARBON DIOXIDE (test code = 21 MEQ/L 2205) CALCIUM (test code = 220) 9.8 MG/DL PROTEIN, TOTAL (test code = [...] (test code = 221) 23 U/L LIPID [id number] 00:00:00 Test Item Value Reference Range Interpretation Comments CHOLESTEROL (test code = 2210) 167 MG/DL TRIGLYCERIDES (test code = 2232) 109 MG/DL HDL CHOLESTEROL (test code = 2220) 58 MG/DL CALCULATED LDL CHOL (test code = 87 MG/DL 2236) RISK RATIO LDL/HDL (test code = 1.50 RATIO 2238) LIPID [id number] 00:00:00 Test Item Value Reference Range Interpretation [...] (test code = 2821) 1.5 UIU/ML HEMOGLOBIN [id number] 00:00:00 Test Item Value Reference Range Interpretation Comments HEMOGLOBIN A1c (test code = 70811) 5.5 % HEMOGLOBIN [id number] 00:00:00 Test Item Value Reference Range Interpretation Comments HEMOGLOBIN A1c (test code = 36411) 5.5 % HEMOGLOBIN [id number] 00:00:00 Test Item Value Reference Range Interpretation Comments HEMOGLOBIN A1c (test code = 99574) 5.5 % HEMOGLOBIN [id number] 00:00:00 Test Item Value Reference Range Interpretation Comments HEMOGLOBIN A1c (test code = 73177) 5.5 % HEMOGLOBIN [id number] 00:00:00 Test Item Value Reference Range Interpretation Comments HEMOGLOBIN A1c (test code = 08028) 5.5 % CBC W/AUTO [id number] 00:00:00 Test Item Value Reference Range Interpretation [...] code = 1015) 310 K/UL CBC W/AUTO [id number] 00:00:00 Test Item Value Reference Range Interpretation [...] code = 1015) 310 K/UL CBC W/AUTO [id number] 00:00:00 Test Item Value Reference Range Interpretation [...] code = 1015) 310 K/UL COMPREHENSIVE METABOLIC [id number] 00:00:00 Test Item Value Reference Range Interpretation Comments GLUCOSE (test code = 2217) 73 MG/DL BUN (test code = 2208) 10 MG/DL CREATININE (test code = 2214) 0.51 MG/DL eGFR AMER. (test code 158 ML/MIN/1.73 = 21930) eGFR NON- AMER. (test 136 ML/MIN/1.73 code = 09067) CALCULATED BUN/CREAT (test 20 RATIO code = [...] code = 2219) 23 U/L COMPREHENSIVE METABOLIC [id number] 00:00:00 Test Item Value Reference Range Interpretation Comments GLUCOSE (test code = 2217) 73 MG/DL BUN (test code = 2208) 10 MG/DL CREATININE (test code = 2214) 0.51 MG/DL eGFR AMER. (test code 158 ML/MIN/1.73 = 49326) eGFR NON- AMER. (test 136 ML/MIN/1.73 code = 18560) CALCULATED BUN/CREAT (test 20 RATIO code = [...] (test code = 2219) 23 U/L LIPID [id number] 00:00:00 Test Item Value Reference Range Interpretation Comments CHOLESTEROL (test code = 2210) 167 MG/DL TRIGLYCERIDES (test code = 2232) 109 MG/DL HDL CHOLESTEROL (test code = 2220) 58 MG/DL CALCULATED LDL CHOL (test code = 87 MG/DL 2236) RISK RATIO LDL/HDL (test code = 1.50 RATIO 2238) LIPID [id number] 00:00:00 Test Item Value Reference Range Interpretation [...] (test code = 2821) 1.5 UIU/ML HEMOGLOBIN [id number] 00:00:00 Test Item Value Reference Range Interpretation Comments HEMOGLOBIN A1c (test code = 04768) 5.5 % CBC W/AUTO [id number] 00:00:00 Test Item Value Reference Range Interpretation [...] code = 1015) 310 K/UL CBC W/AUTO [id number] 00:00:00 Test Item Value Reference Range Interpretation [...] code = 1015) 310 K/UL CBC W/AUTO [id number] 00:00:00 Test Item Value Reference Range Interpretation [...] code = 1015) 310 K/UL COMPREHENSIVE METABOLIC [id number] 00:00:00 Test Item Value Reference Range Interpretation Comments GLUCOSE (test code = 2217) 73 MG/DL BUN (test code = 2208) 10 MG/DL CREATININE (test code = 2214) 0.51 MG/DL eGFR AMER. (test code 158 ML/MIN/1.73 = 50956) eGFR NON- AMER. (test 136 ML/MIN/1.73 code = 28714) CALCULATED BUN/CREAT (test 20 RATIO code = [...] code = 2219) 23 U/L COMPREHENSIVE METABOLIC [id number] 00:00:00 Test Item Value Reference Range Interpretation Comments GLUCOSE (test code = 2217) 73 MG/DL BUN (test code = 2208) 10 MG/DL CREATININE (test code = 2214) 0.51 MG/DL eGFR AMER. (test code 158 ML/MIN/1.73 = 19623) eGFR NON- AMER. (test 136 ML/MIN/1.73 code = 93112) CALCULATED BUN/CREAT (test 20 RATIO code = [...] (test code = 2219) 23 U/L LIPID [id number] 00:00:00 Test Item Value Reference Range Interpretation Comments CHOLESTEROL (test code = 2210) 167 MG/DL TRIGLYCERIDES (test code = 2232) 109 MG/DL HDL CHOLESTEROL (test code = 2220) 58 MG/DL CALCULATED LDL CHOL (test code = 87 MG/DL 2236) RISK RATIO LDL/HDL (test code = 1.50 RATIO 2238) LIPID [id number] 00:00:00 Test Item Value Reference Range Interpretation [...] Notes Date/Time Note Provider Source 2023-03-11 10:20:10 [id number]:20:10Formatting of this Jelena-Patrice note is different from the Clini c original.Images from the original note were not included.[facility] Management Clinicfrances Briones MD, Sissy Spencer PA-C, MPASASSESSMENT 1. [...] injection is deemed warranted Pt lives near [facility] and witnessed per Brian Spencer [...] relocation. Preliminary Report Dictated by Resident: Alex Noriega, MD., have reviewed this study and agree [...] tissue masses are present.KNEE ROUTINE 10-39 YEARS TUFINJZKC11/10/2023 10:40 AMResult Narrative: Examination: KNEE ROUTINE 10-39 [...] benzodiazapines, antidepressants, sedatives, and/or tranquilizers, the drug fulfillment specialist, recommends not operating ANY machinery or [...] medications which may lead to sudden . 57357-0Xswlwhi and physical qnhiRU5584-28-45N74:04:53History and physical [id number].2.7 83647|[id number] for patient [facility] [facility] [id number]:04:531.2.840.296647.1.72. 3.15|1.2.840.875967.1.13.131.2.7.2.727 [id number] Notes Date/Time Note Provider Source 2023-05-06 10:32:55 0523-60-05H04:32:55Formatting of [facility] this note is different from the original.Chief Complaint Patient presents with Follow-up Follow up from [facility] May 01 for a fall. She has since been having [place] [address]-3Aoeuw IzkqPD2281-37-47D07:33:18Nurse NoteTXT1.2.840.875061.1.13.131.2.7 .2.253534|[id number] for patient kfam66008-0Ljpxs NoteLNHannah Ville [id number] [facility] [id number] MQA8250-30-41E02:33:181.2.840.1143 50.1.72.3.15|1.2.840.169162.1.13.1 31.2.7.2.727879_[id number] 2023-04-28 08:52:15 6403-14-07A36:52:15Formatting of [facility] this note is different from the original.Carlos Collins is a 28 year old adultChief Complaint Patient presents with Follow-Up Visit 6 [place] [address]-4Humdu LabwDB4519-21-41L50:54:56Nurse NoteTXT1.2.840.481397.1.13.131.2.7 .2.273673|[id number] for patient znde24211-9Knfla NoteThedacare Medical [facility] [facility] [id number] PZA9472-82-25T32:54:561.2.840.1143 50.1.72.3.15|1.2.840.509631.1.13.1 31.2.7.2.727879_[id number] 2023-04-24 08:51:32 5252-72-86S91:51:32Formatting of [facility] this note is different from the original.Chief Complaint Patient presents with Follow-up ERNIE - 12/22/2022 - hx of asthma and MADHAV. Pt. Unable to get CPAP due to co-pay of $300, same with nebulizer. Huseyin Wuectronically signed by Connie Puente LVN at 04/24/2023 9:01 AM [id number]:01:48Nurse [id number] for patient [id number] Note[id number] [id number]|[id number] 2023-03-11 10:25:13 [id number]:25:13Formatting of [facility] this note is different from the original.Carlos Collins is a 27 year old adultChief Complaint Patient presents with Follow-up 27 year old patient c/o bilateral knee and back pain here for follow up. Pain 04/09[place] [id number]:04:53Nurse [id number] for patient [id number]|[id number] [id number]"
--- NOTE | 2023-08-03 16:43 | ER ---
Nurse's Notes [facility] Name: Taylor Rodriguez Age: 28 yrs Sex: Female : 1995 Arrival Date: 08/03/2023 Time: 15:50 Bed IW2 Private MD: Diagnosis: Epileptic seizures related to external causes, not intractable;Anxiety disorder, unspecified Presentation: 08/03 16:05 Chief complaint: Patient states: I was watching TV and next thing I know I was going in iw and out of consciousness and last thing I remember is dialing 9. Coronavirus screen: At this time, the client does not indicate any symptoms associated with coronavirus-19. Ebola Screen: Patient negative for fever greater than or equal to 101.5 degrees Fahrenheit, and additional compatible Ebola Virus Disease symptoms Patient denies exposure to infectious person. Patient denies travel to an Ebola-affected area in the 21 days before illness onset. No symptoms or risks identified at this time. Initial Sepsis Screen: Does the patient meet any 2 criteria? No. Patient's initial sepsis screen is negative. Does the patient have a suspected source of infection? No. Patient's initial sepsis screen is negative. Risk Assessment: Do you want to hurt yourself or someone else? Patient reports no desire to harm self or others. 16:05 Method Of Arrival: EMS: [facility] iw 16:05 Acuity: MILAN 3 iw Historical: - Allergies: 16:06 Naproxen; iw - Home Meds: 16:07 topiramate oral [Active]; iw - PMHx: 16:06 Anxiety; Bipolar disorder; Chronic pain; Chronic pain; Depression; Fibromyalgia; High iw Blood Pressure; Schizophrenia; Seizure; Sleep Apnea; - Family history:: not pertinent. - Hospitalizations: : No recent hospitalization is reported. Vital Signs: 16:27 BP 155 / 99; Pulse 104; Resp 16; Temp 98.3; Pulse Ox 100% on R/A; iw ED Course: 15:54 Patient arrived in ED. im 15:57 Moses Bell MD is Attending Physician. rn 16:06 Triage completed. iw 16:07 Arm band placed on. iw 16:46 Yumiko Ellis, RN is Primary Nurse. iw Administered Medications: No medications were administered Outcome: 16:42 Discharge ordered by . rn 16:47 Patient left the ED. iw Signatures: Yumiko Ellis, RN Moses Arevalo MD MD rn Mendoza, Itzel im
--- NOTE | 2023-08-03 16:43 | EDPHYS ---
Physician Documentation [facility] Name: Taylor Rodriguez Age: 28 yrs Sex: Female : 1995 Arrival Date: 08/03/2023 Time: 15:50 Bed IW2 Private MD: ED Physician Moses Bell HPI: 08/03 16:28 This 28 yrs old Black Female presents to ER via EMS with complaints of Probable Seizure.rn 16:28 The patient presents after having a possible seizure episode, no tonic-clonic activity rn was appreciated, no post-ictal period is described. Seizure onset: today. Associated injury: The patient did not suffer any apparent associated injury. Current symptoms: Currently, the patient is not experiencing any symptoms. The patient has experienced similar episodes in the past. Patient reports not sure if she had an anxiety attack or an absence seizure. Patient reports recently seen by her neurologist and increased her Topamax for her seizures. Reports was at home and felt anxious, not sure if had a seizure but she called 911 for help, able to walk down the stairs and meet them, denies any postictal period or confusion following the episode like she normally does. Denies any recent illness or fever. No trauma. No head injury. Feels back to baseline currently. No complaints. Reports still having issues sleeping and has not gotten her CPAP machine due to monetary restrictions.. Historical: - Allergies: 16:06 Naproxen; iw - Home Meds: 16:07 topiramate oral [Active]; iw - PMHx: 16:06 Anxiety; Bipolar disorder; Chronic pain; Chronic pain; Depression; Fibromyalgia; High iw Blood Pressure; Schizophrenia; Seizure; Sleep Apnea; - Family history:: not pertinent. - Hospitalizations: : No recent hospitalization is reported. ROS: 16:28 Constitutional: Negative for fever, chills, and weight loss, Eyes: Negative for injury, rn pain, redness, and discharge, ENT: Negative for injury, pain, and discharge, Neck: Negative for injury, pain, and swelling, Cardiovascular: Negative for chest pain, palpitations, and edema, Respiratory: Negative for shortness of breath, cough, wheezing, and pleuritic chest pain, Abdomen/GI: Negative for abdominal pain, nausea, vomiting, diarrhea, and constipation, Back: Negative for injury and pain, MS/Extremity: Negative for injury and deformity, Skin: Negative for injury, rash, and discoloration, Neuro: Negative for headache, weakness, numbness, tingling Exam: 16:28 Constitutional: This is a well developed, well nourished patient who is awake, alert, rn and in no acute distress. Head/Face: Normocephalic, atraumatic. Eyes: Lids and lashes normal. Conjunctiva and sclera are non-icteric and not injected. Cornea within normal limits. Periorbital areas with no swelling, redness, or edema. Respiratory: Speaking full sentences, unlabored. No increased work of breathing, no retractions or nasal flaring. Neuro: Awake and alert, GCS 15, oriented to person, place, time, and situation. Cerebellar exam normal. Vital Signs: 16:27 BP 155 / 99; Pulse 104; Resp 16; Temp 98.3; Pulse Ox 100% on R/A; iw MDM: 15:58 Patient medically screened. rn 16:28 Differential diagnosis: seizure, Anxiety, stress reaction. Data reviewed: vital signs, rn nurses notes, and as a result, I will discharge patient. Counseling: I had a detailed discussion with the patient and/or guardian regarding the historical points, exam findings, and any diagnostic results supporting the discharge/admit diagnosis, the need for outpatient follow up, to return to the emergency department if symptoms worsen or persist or if there are any questions or concerns that arise at home. Response to treatment: the patient's condition has returned to base line, the patient is now symptom free, and as a result, I will discharge patient. Special discussion: I discussed with the patient/guardian in detail that at this point there is no indication for admission to the hospital. It is understood, however, that if the symptoms persist or worsen the patient needs to return immediately for re-evaluation. Based on the history and exam findings, there is no indication for further emergent testing or inpatient evaluation. I discussed with the patient/guardian the need to see the neurologist for further evaluation of the symptoms. ED course: Patient without any complaints currently. Not sure if she had a seizure. After long discussion patient states she feels better and is just needed to talk to somebody. She is working on trying to get a CPAP machine approved. Topamax recently increased and doing better with her seizures and having fewer seizures. Stable vital signs. No acute complaints at this time. Will DC home with return precautions and instructed to continue taking her medication as prescribed. Will follow-up with neurology. Return precautions given and understood.. Administered Medications: No medications were administered Disposition Summary: 08/03/23 16:42 Discharge Ordered Notes: Location: Home rn Problem: new rn Symptoms: have improved rn Condition: Stable rn Diagnosis - Epileptic seizures related to external causes, not intractable rn - Anxiety disorder, unspecified rn Followup: rn - With: Private Physician - When: As needed - Reason: Recheck today's complaints, Re-evaluation by your physician Discharge Instructions: - Discharge Summary Sheet rn - Seizure, Adult rn - Sleep Apnea rn - Generalized Anxiety Disorder, Adult rn - Managing Anxiety, Adult rn Forms: - Medication Reconciliation Form rn - Thank You Letter rn - Antibiotic electrode turner and finisher - Prescription Opioid Use rn - Patient Portal Instructions rn - Leadership Thank You Letter rn Signatures: Yumiko Ellis RN RN Moses Busby MD MD rn
[2023-08-03 17:30] VITALS: BP 155/99; TEMP 98.3; O2SAT 100
== END 2023-08-03 16:47 | disposition home or self-care (01) ==
LOC: ER 15:50
DX: G40.509 Epileptic seizures related to external causes, not intractable, without status epilepticus (principal); F41.9 Anxiety disorder, unspecified
CPT/HCPCS: 99282

== ENCOUNTER → 2023-08-31 | Emergency (ER) | payer OTHER, SELFPAY ==
[~2023-08-31] MED LIST: AZITHROMYCIN 250 MG TAB ONE; CEFTRIAXONE 1000 MG/VIAL ONE; IPRATROPIUM BROM 0.5MG/2.5ML ONE; LEVALBUTEROL 1.25 MG/3 ML NEB ONE; METHYLPREDNISOLONE 125 MG INJ ONE; Magnesium Sulfate 2gm IVPB 2 G/50 ML BAG IV ONE; NA CHLORIDE 0.9% 1,000 ML ONE; POTASSIUM 25 MEQ EFFERV TAB ONE; predniSONE 20 MG TAB ONE
--- NOTE | 2023-08-31 13:12 | RAD REPORT ---
EXAM DESCRIPTION: Darius Wayne And Micah (2 Views)08/31/2023 12:56 pm CLINICAL HISTORY: Cough COMPARISON: July 2023 FINDINGS: The lungs appear clear of acute infiltrate. The heart is normal size IMPRESSION: No acute abnormalities displayed
[2023-08-31 13:45] LABS: SARS-CoV-2 Antigen Rapid Res Negative (Negative)
[2023-08-31 14:51] LABS: Hematocrit 36.8 % (36.0-45.0); Lymphocytes % 19.6 % (15.3-44.8); MCV 86.6 fL (80-100); MPV 8.5 fL (7.6-11.3); Platelets 247 thou/uL (152-406); RBC Red Blood Cell Count 4.25 M/uL (3.86-4.86)
[2023-08-31 15:12] LABS: Specific Gravity 1.019 (1.005-1.030)
[2023-08-31 15:14] LABS: Albumin 3.4 g/dL (3.4-5.0); Bilirubin Total 0.4 mg/dL (0.2-1.0); Potassium 2.9 mEq/L (3.5-5.1); Protein, Total 8.2 g/dL (6.4-8.2)
[2023-08-31 15:14] LABS: Specific Gravity 1.019 (1.005-1.030); Urine Bacteria None Seen /HPF (<20); Urine Bilirubin NEGATIVE (Negative); Urine Blood Negative (Negative); Urine Clarity Turbid (Clear); Urine Color Light-Yellow (Yellow); Urine Glucose NEGATIVE (Negative); Urine Mucus Slight /HPF (None Seen); Urine Protein NEGATIVE (Negative); Urine RBC <5 /HPF (None Seen); Urine Urobilinogen Normal (Normal); Urine pH 7.5 (5.0-7.0)
--- NOTE | 2023-08-31 15:48 | ER ---
Nurse's Notes [facility] Name: Taylor Rodriguez Age: 28 yrs Sex: Female : 1995 Arrival Date: 08/31/2023 Time: 12:00 Bed 12 Private MD: Diagnosis: Moderate persistent asthma with (acute) exacerbation;Acute upper respiratory infection, unspecified;Dyspnea;Hypokalemia Presentation: 08/31 12:09 Chief complaint: Patient states: cough x 1 week that has not improved. Pt states "my aa5 doctor said I might need a CT scan of my lungs". Coronavirus screen: cough unrelated to allergies. Ebola Screen: Patient denies travel to an Ebola-affected area in the 21 days before illness onset. Initial Sepsis Screen: Does the patient meet any 2 criteria? No. Patient's initial sepsis screen is negative. Does the patient have a suspected source of infection? No. Patient's initial sepsis screen is negative. Risk Assessment: Do you want to hurt yourself or someone else? Patient reports no desire to harm self or others. Onset of symptoms was July 2023. 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 - Social history:: Smoking status: Reported history of juuling and/or vaping. Screenin:04 [facility] ED Fall Risk Assessment (Adult) History of falling in the last 3 months, me1 including since admission No falls in past 3 months (0 pts) Confusion or Disorientation No (0 pts) Intoxicated or Sedated No (0 pts) Impaired Gait Yes (1 pt) Mobility Assist Device Used Yes (1 pt) Altered Elimination No (0 pt) Score/Fall Risk Level 3 or more points = High Risk Maintained a safe environment, Provided non-skid footwear, Hourly rounding (assess needs \\T\\ fall precautionary measures) done, Used ambulatory aids as needed (educated on \\T\\ assisted with), Implemented a Fall Risk Plan of Care. Abuse screen: Denies threats or abuse. Nutritional screening: No deficits noted. Tuberculosis screening: No symptoms or risk factors identified. Assessment: 13:03 General: Appears uncomfortable, Behavior is calm, cooperative, appropriate for age. ll1 Pain: Complains of pain in body Quality of pain is described as aching. Respiratory: Reports cough that is pain with cough. Musculoskeletal: Reports pain in body aches. 14:15 Reassessment: No changes from previously documented assessment. given warm blanket. ll1 Vital Signs: 12:09 BP 148 / 88; Pulse 85; Resp 18 S; Temp 97.3(TE); Pulse Ox 96% on R/A; Weight 135.62 kg aa5 (R); Height 5 ft. 3 in. (R); 13:00 BP 145 / 85; Pulse 75; Resp 18; Pulse Ox 100% on R/A; me1 14:00 BP 139 / 78; Pulse 82; Resp 21; Pulse Ox 100% ; me1 15:00 BP 133 / 83; Pulse 86; Resp 19; Pulse Ox 99% ; me1 16:00 BP 146 / 84; Pulse 93; Resp 21; Pulse Ox 99% ; me1 16:56 BP 145 / 90; Pulse 82; Resp 18; Pulse Ox 97% on R/A; me1 12:09 Body Mass Index 52.96 (135.62 kg, 160.02 cm) aa5 Tori Coma Score: 17:31 Eye Response: spontaneous(4). Motor Response: obeys commands(6). Verbal Response: elisabet oriented(5). Total: 15. ED Course: 12:06 Patient arrived in ED. ts1 12:08 Last Barrientos MD is Attending Physician. elisabet 12:08 Arm band placed on. aa5 12:11 Triage completed. aa5 12:57 Chest Pa And Lat (2 Views) XRAY In Process Unspecified. EDMS 13:03 Flu Sent. ll1 13:04 SARS RAPID Sent. ll1 13:34 Obdulia Reese, ROQUE is Primary Nurse. me1 14:42 Inserted saline lock: 20 gauge in right antecubital area, using aseptic technique. me1 14:42 Lactate w/ 2H reflex if indic. Sent. me1 14:42 Blood Culture Adult (2) Sent. me1 14:42 Comprehensive Metabolic Panel Sent. me1 14:42 CBC with Diff Sent. me1 14:59 Urinalysis w/ reflexes Sent. me1 14:59 PREGU Sent. me1 15:47 Federico Randhawa MD is Referral Physician. [facility] 18:04 Patient has correct armband on for positive identification. Bed in low position. Call me1 light in reach. Side rails up X2. Provided Education on: POC. Verbalized understanding. . 18:04 No provider procedures requiring assistance completed. me1 18:07 IV discontinued, intact, bleeding controlled, No redness/swelling at site. Pressure me1 dressing applied. Administered Medications: 15:27 Drug: predniSONE PO 60 mg PO once Route: PO; me1 15:54 Follow up: Response: No adverse reaction me1 15:27 Drug: Rocephin IV 1 grams IV at per protocol once; Given slow IV push per pharmacy me1 instructions Route: IV; Rate: per protocol; Site: right antecubital; 15:28 Follow up: Response: No adverse reaction; IV Status: Completed infusion me1 15:54 Follow up: Response: No adverse reaction me1 15:27 Drug: AZITHromycin PO 500 mg PO once Route: PO; me1 15:54 Follow up: Response: No adverse reaction me1 15:27 Drug: Magnesium Sulfate IVPB 2 grams IVPB once over 1 hrs Route: IVPB; Infused Over: 1 me1 hrs; Site: right antecubital; 18:08 Follow up: Response: No adverse reaction; IV Status: Completed infusion me1 15:28 Drug: NS 0.9% IV 1000 ml IV at 1 bolus Per protocol; 1000 mL bolus Route: IV; Rate: 1 me1 bolus; Site: right antecubital; 18:09 Follow up: IV Status: Completed infusion me1 15:28 Drug: Levalbuterol Inhalation 3.75 mg Inhalation once Route: Inhalation; me1 15:53 Follow up: Response: No adverse reaction; Wheezing diminished me1 15:28 Drug: Ipratropium Inhalation Aerosol 0.5 mg Inhalation once Route: Inhalation; me1 15:54 Follow up: Response: No adverse reaction; Wheezing diminished me1 15:28 Drug: MethylPrednisoLONE IVP 125 mg IVP once Route: IVP; Site: right antecubital; me1 15:54 Follow up: Response: No adverse reaction me1 16:01 Drug: Levalbuterol Inhalation 2.5 mg Inhalation once Route: Inhalation; me1 16:02 Drug: Potassium PO Effervescent Tablet 50 mEq PO once; dissolve in 4 ounces of water or me1 juice Route: PO; 18:08 Follow up: Response: No adverse reaction me1 16:02 Drug: Potassium PO Effervescent Tablet 25 mEq PO once; dissolve in 4 ounces of water or me1 juice Route: PO; 18:08 Follow up: Response: No adverse reaction me1 Medication: 18:07 VIS not applicable for this client. me1 Outcome: 15:48 Discharge ordered by . elisabet 18:05 Discharged to home via wheelchair, with family, me1 18:05 Condition: stable 18:05 Discharge instructions given to patient, Instructed on discharge instructions, follow up and referral plans. medication usage, Demonstrated understanding of instructions, follow-up care, medications, Prescriptions given X x6 18:08 Patient left the ED. me1 Signatures: Dispatcher [employer] Last Watson MD MD cha Calderon, Audri, RN RN aa5 Dakotah Garduno RN RN ll1 Porsha Carter PAS PAS ts1 Obdulia Reese, ROQUE RN me1 Corrections: (The following items were deleted from the chart) 16:01 15:27 Levalbuterol Inhalation 2.5 mg Inhalation me1 me1
--- NOTE | 2023-08-31 15:48 | EDPHYS ---
Physician Documentation [facility] Name: Taylor Rodriguez Age: 28 yrs Sex: Female : 1995 Arrival Date: 08/31/2023 Time: 12:00 Bed 12 Private MD: ZACH Physician Last Barrientos HPI: 08/31 13:38 This 28 yrs old Black Female presents to ER via Wheelchair with complaints of Cough. elisabet 13:38 The patient or guardian reports airway noise, cough, difficulty breathing, flu elisabet symptoms, arthralgias, low-grade fever, myalgias. Onset: The symptoms/episode began/occurred 7 day(s) ago. Severity of symptoms: At their worst the symptoms were moderate, in the emergency department the symptoms have improved, mildly. Modifying factors: The symptoms are alleviated by nothing, the symptoms are aggravated by nothing. Associated signs and symptoms: Pertinent positives: fever, rhinorrhea, Pertinent negatives: vomiting. The patient has experienced similar episodes in the past, several times. BREASTER: 18:07 LMP N/A - control method, Not me1 Historical: - Allergies: 12:09 Naproxen; aa5 - PMHx: 12:09 Anxiety; Bipolar disorder; Chronic pain; Depression; Fibromyalgia; High Blood Pressure; aa5 Schizophrenia; Seizure; Sleep Apnea; - Immunization history:: Adult Immunizations unknown. - Social history:: Smoking status: Reported history of juuling and/or vaping. ROS: 13:39 Constitutional: Negative for fever, chills, and weight loss, Eyes: Negative for injury, elisabet pain, redness, and discharge, ENT: Negative for injury, pain, and discharge, Neck: Negative for injury, pain, and swelling, Cardiovascular: Negative for chest pain, palpitations, and edema, Abdomen/GI: Negative for abdominal pain, nausea, vomiting, diarrhea, and constipation, Back: Negative for injury and pain, : Negative for injury, bleeding, discharge, and swelling, MS/Extremity: Negative for injury and deformity, Skin: Negative for injury, rash, and discoloration, Neuro: Negative for headache, weakness, numbness, tingling, and seizure, Psych: Negative for depression, anxiety, suicide ideation, homicidal ideation, and hallucinations, Allergy/Immunology: Negative for hives, rash, and allergies, Endocrine: Negative for neck swelling, polydipsia, polyuria, polyphagia, and marked weight changes, Hematologic/Lymphatic: Negative for swollen nodes, abnormal bleeding, and unusual bruising, 13:39 Respiratory: Positive for cough, shortness of breath, wheezing, inspiratory, expiratory, Exam: 13:40 Constitutional: This is a well developed, well nourished patient who is awake, alert, elisabet and in no acute distress. Head/Face: Normocephalic, atraumatic. Eyes: Pupils equal round and reactive to light, extra-ocular motions intact. Lids and lashes normal. Conjunctiva and sclera are non-icteric and not injected. Cornea within normal limits. Periorbital areas with no swelling, redness, or edema. ENT: Nares patent. No nasal discharge, no septal abnormalities noted. Tympanic membranes are normal and external auditory canals are clear. Oropharynx with no redness, swelling, or masses, exudates, or evidence of obstruction, uvula midline. Mucous membranes moist. Neck: Trachea midline, no thyromegaly or masses palpated, and no cervical lymphadenopathy. Supple, full range of motion without nuchal rigidity, or vertebral point tenderness. No Meningismus. Chest/axilla: Normal chest wall appearance and motion. Nontender with no deformity. No lesions are appreciated. Cardiovascular: Regular rate and rhythm with a normal S1 and S2. No gallops, murmurs, or rubs. Normal PMI, no JVD. No pulse deficits. Abdomen/GI: Soft, non-tender, with normal bowel sounds. No distension or tympany. No guarding or rebound. No evidence of tenderness throughout. Back: No spinal tenderness. No costovertebral tenderness. Full range of motion. Pelvic Exam: Normal external genitalia. Speculum exam with closed cervical os, no discharge or bleeding noted. Bimanual exam with normal adnexa, no adnexal or cervical motion tenderness. Normal uterus. Female : Normal external genitalia. Skin: Warm, dry with normal turgor. Normal color with no rashes, no lesions, and no evidence of cellulitis. MS/ Extremity: Pulses equal, no cyanosis. Neurovascular intact. Full, normal range of motion. Neuro: Awake and alert, GCS 15, oriented to person, place, time, and situation. Cranial nerves II-XII grossly intact. Motor strength 5/5 in all extremities. Sensory grossly intact. Cerebellar exam normal. Normal gait. Psych: Awake, alert, with orientation to person, place and time. Behavior, mood, and affect are within normal limits. 13:40 Respiratory: Breath sounds: bronchial sounds, decreased breath sounds, rhonchi, stridor, is not appreciated, wheezing: inspiratory expiratory that is moderate, is heard diffusely, Respiratory rate: 22 13:40 Musculoskeletal/extremity: DVT Exam: No signs of deep vein thrombosis. no pain, no swelling, no tenderness, negative Homans' sign noted on exam, no appreciated bluish discoloration, no erythema, no increased warmth, 17:31 Musculoskeletal/extremity: ROM: no acute changes, intact in all extremities, full elisabet active range of motion, full passive range of motion, Circulation is intact in all extremities. Sensation intact. Compartment Syndrome exam of affected extremity: is normal. Weight bearing: able to fully bear weight, Vital Signs: 12:09 BP 148 / 88; Pulse 85; Resp 18 S; Temp 97.3(TE); Pulse Ox 96% on R/A; Weight 135.62 kg aa5 (R); Height 5 ft. 3 in. (R); 13:00 BP 145 / 85; Pulse 75; Resp 18; Pulse Ox 100% on R/A; me1 14:00 BP 139 / 78; Pulse 82; Resp 21; Pulse Ox 100% ; me1 15:00 BP 133 / 83; Pulse 86; Resp 19; Pulse Ox 99% ; me1 16:00 BP 146 / 84; Pulse 93; Resp 21; Pulse Ox 99% ; me1 16:56 BP 145 / 90; Pulse 82; Resp 18; Pulse Ox 97% on R/A; me1 12:09 Body Mass Index 52.96 (135.62 kg, 160.02 cm) aa5 [place] Coma Score: 17:31 Eye Response: spontaneous(4). Motor Response: obeys commands(6). Verbal Response: elisabet oriented(5). Total: 15. MDM: 12:12 Patient medically screened. elisabet 13:40 Differential diagnosis: Anxiety Reaction asthma, Bronchitis obstructed airway, tracheal elisabet injury, bronchitis, flu, URI. Antibiotic administration: The patient is discharged and will get outpatient antibiotics, Zithromax. Differential Diagnosis: Obstructed Airway Bronchitis Influenza Sinusitis Pharyngitis Asthma Exacerbation Viral Syndrome Pneumonia. Immunization status:. Data reviewed: vital signs, nurses notes, lab test result(s), radiologic studies, plain films. Consideration of Admission/Observation Patient was admitted/placed on observation. Escalation of care including admission/observation considered. I considered the following discharge prescriptions or medication management in the emergency department Medications were administered in the Emergency Department. See MAR. Test considered but Not performed: EKG: NO EKG. Care significantly affected by the following chronic conditions: Hypertension, Obesity, BIPOLAR, CHRONIC PAIN, DEPRESSION. Counseling: I had a detailed discussion with the patient and/or guardian regarding the historical points, exam findings, and any diagnostic results supporting the discharge/admit diagnosis, the presence of at least one elevated blood pressure reading (>120/80) during this emergency department visit, lab results, radiology results. 08/31 12:11 Order name: Urinalysis w/ reflexes; Complete Time: 15:40 [facility] 08/31 12:11 Order name: PREGU; Complete Time: 15:40 [facility] 08/31 12:11 Order name: Flu; Complete Time: 14:30 [facility] 08/31 12:11 Order name: SARS RAPID; Complete Time: 14:30 [facility] 08/31 13:38 Order name: CBC with Diff; Complete Time: 15:40 [facility] 08/31 13:38 Order name: Comprehensive Metabolic Panel; Complete Time: 15:40 [facility] 08/31 13:38 Order name: Blood Culture Adult (2) [facility] 08/31 13:38 Order name: Lactate w/ 2H reflex if indic.; Complete Time: 15:40 [facility] 08/31 12:11 Order name: Chest Pa And Lat (2 Views) XRAY; Complete Time: 13:36 [facility] 08/31 15:41 Order name: PO challenge: JUICE; Complete Time: 15:55 [facility] Administered Medications: 15:27 Drug: predniSONE PO 60 mg PO once Route: PO; me1 15:54 Follow up: Response: No adverse reaction me1 15:27 Drug: Rocephin IV 1 grams IV at per protocol once; Given slow IV push per pharmacy me1 instructions Route: IV; Rate: per protocol; Site: right antecubital; 15:28 Follow up: Response: No adverse reaction; IV Status: Completed infusion me1 15:54 Follow up: Response: No adverse reaction me1 15:27 Drug: AZITHromycin PO 500 mg PO once Route: PO; me1 15:54 Follow up: Response: No adverse reaction me1 15:27 Drug: Magnesium Sulfate IVPB 2 grams IVPB once over 1 hrs Route: IVPB; Infused Over: 1 me1 hrs; Site: right antecubital; 18:08 Follow up: Response: No adverse reaction; IV Status: Completed infusion me1 15:28 Drug: NS 0.9% IV 1000 ml IV at 1 bolus Per protocol; 1000 mL bolus Route: IV; Rate: 1 me1 bolus; Site: right antecubital; 18:09 Follow up: IV Status: Completed infusion me1 15:28 Drug: Levalbuterol Inhalation 3.75 mg Inhalation once Route: Inhalation; me1 15:53 Follow up: Response: No adverse reaction; Wheezing diminished me1 15:28 Drug: Ipratropium Inhalation Aerosol 0.5 mg Inhalation once Route: Inhalation; me1 15:54 Follow up: Response: No adverse reaction; Wheezing diminished me1 15:28 Drug: MethylPrednisoLONE IVP 125 mg IVP once Route: IVP; Site: right antecubital; me1 15:54 Follow up: Response: No adverse reaction me1 16:01 Drug: Levalbuterol Inhalation 2.5 mg Inhalation once Route: Inhalation; me1 16:02 Drug: Potassium PO Effervescent Tablet 50 mEq PO once; dissolve in 4 ounces of water or me1 juice Route: PO; 18:08 Follow up: Response: No adverse reaction me1 16:02 Drug: Potassium PO Effervescent Tablet 25 mEq PO once; dissolve in 4 ounces of water or me1 juice Route: PO; 18:08 Follow up: Response: No adverse reaction me1 Disposition Summary: 08/31/23 15:48 Discharge Ordered Notes: Location: Home elisabet Problem: new elisabet Symptoms: have improved elisabet Condition: Stable elisabet Diagnosis - Moderate persistent asthma with (acute) exacerbation elisabet - Acute upper respiratory infection, unspecified elisabet - Dyspnea elisabet - Hypokalemia elisabet Followup: elisabet - With: Private Physician - When: 2 - 3 days - Reason: Recheck today's complaints, Continuance of care, Re-evaluation by your physician Followup: elisabet - With: Federico Randhawa MD - When: 2 - 3 days - Reason: Recheck today's complaints, Continuance of care, Re-evaluation by your physician Discharge Instructions: - Discharge Summary Sheet elisabet - Asthma, Adult elisabet - Potassium Content of Foods elisabet - Upper Respiratory Infection, Adult elisabet - Cool Mist Vaporizer elisabet - Upper Respiratory Infection, Adult, [id number] elisabet - Asthma, Adult, [id number] elisabet - Asthma Action Plan, Adult elisabet - Cough, Adult [facility] - Hypokalemia [facility] Forms: - Medication Reconciliation Form [facility] - Thank You Letter elisabet - Antibiotic Education elisabet - Prescription Opioid Use elisabet - Patient Portal Instructions [facility] - Leadership Thank You Letter [facility] Prescriptions: - albuterol sulfate 90 mcg/actuation Inhalation HFA Aerosol Inhaler - inhale 2 puff INHALATION route every 4-6 hours as needed for shortness of elisabet breath or wheezing; until breathing returns to target peak flow/parameters; 2 unit; Refills: 0, Product Selection Permitted - Prednisone 20 mg Oral tablet - take 3 tablets ORAL route once daily for 4 days; 12 tablet; Refills: 0, Product elisabet Selection Permitted - Potassium Chloride 20 meq Oral Packet - take 1 packet ORAL route once daily 1 packet in 6 (six) ounces of water or [facility] juice; Take after meal; 14 packet; Refills: 0, Product Selection Permitted - Tessalon Perles 100 mg Oral capsule - take 2 capsule ORAL route every 8 hours As needed; 30 capsule; Refills: 0, [facility] Product Selection Permitted - Albuterol Sulfate 2.5 mg /3 mL (0.083 %) Inhalation Solution for Nebulization - inhale 1 unit NEBULIZATION route every 4-6 hours As needed; 45 unit; Refills: elisabet 0, Product Selection Permitted - Zithromax 500 mg Oral Tablet - take 1 tablet ORAL route once daily for 5 days; 5 tablet; Refills: 0, Product elisabet Selection Permitted Signatures: Dispatcher [employer] Last Watson MD MD cha Calderon, Audri, RN RN aa5 Obdulia Reese RN RN me1
[2023-08-31 18:49] VITALS: BP 145/90; TEMP 97.3; O2SAT 97
== END ==
LOC: ER 12:00
DX: J45.31 Mild persistent asthma with (acute) exacerbation (principal); J06.9 Acute upper respiratory infection, unspecified; E87.6 Hypokalemia; Z11.52 Encounter for screening for COVID-19; Z88.5 Allergy status to narcotic agent
CPT/HCPCS: 36415; 71046; 80053; 81001; 81025; 83605; 85025; 87040; 87804; 87811; 96365; 96366; 96375; 99285; J0696; J2930; J3475; J7030; J7512; J7614; J7644

== ENCOUNTER → 2023-09-02 | Emergency (ER) | payer OTHER, SELFPAY ==
[~2023-09-02] MED LIST changes: -AZITHROMYCIN 250 MG TAB ONE; -CEFTRIAXONE 1000 MG/VIAL ONE; -IPRATROPIUM BROM 0.5MG/2.5ML ONE; -LEVALBUTEROL 1.25 MG/3 ML NEB ONE; -METHYLPREDNISOLONE 125 MG INJ ONE; -Magnesium Sulfate 2gm IVPB 2 G/50 ML BAG IV ONE; -POTASSIUM 25 MEQ EFFERV TAB ONE; -predniSONE 20 MG TAB ONE
[2023-09-02 16:22] LABS: Hematocrit 37.5 % (36.0-45.0); Lymphocytes % 33.1 % (15.3-44.8); MCV 86.8 fL (80-100); MPV 8.9 fL (7.6-11.3); Platelets 278 thou/uL (152-406); RBC Red Blood Cell Count 4.32 M/uL (3.86-4.86)
[2023-09-02 16:39] LABS: ALT/SGPT 22 U/L (13-56); AST/SGOT 14 U/L (15-37); Albumin 3.4 g/dL (3.4-5.0); BUN Blood Urea Nitrogen 9 mg/dL (7-18); Bicarbonate 22 mEq/L (21-32); Bilirubin Direct 0.1 mg/dL (0-0.2); Bilirubin Indirect, Calculated 0.2 mg/dL (0.2-0.8); Bilirubin Total 0.3 mg/dL (0.2-1.0); Glomerular Filtration Rate 102 ml/min (=/>90); Glucose Level 96 mg/dL (74-106); Potassium 3.4 mEq/L (3.5-5.1); Protein, Total 8.2 g/dL (6.4-8.2); Sodium Level 138 mEq/L (136-145)
[2023-09-02 16:41] LABS: Alkaline Phosphatase 62 U/L (45-117)
[2023-09-02 16:59] LABS: Protime INR 1.11
[2023-09-02 18:36] LABS: Specific Gravity 1.021 (1.005-1.030); Urine Bacteria None Seen /HPF (<20); Urine Bilirubin NEGATIVE (Negative); Urine Blood Negative (Negative); Urine Clarity Turbid (Clear); Urine Color Light-Yellow (Yellow); Urine Glucose NEGATIVE (Negative); Urine Mucus Slight /HPF (None Seen); Urine Protein NEGATIVE (Negative); Urine RBC <5 /HPF (None Seen); Urine Urobilinogen Normal (Normal); Urine pH 7.5 (5.0-7.0)
[2023-09-02 18:39] LABS: Barbiturates POSITIVE (NEGATIVE); Benzodiazepines NEGATIVE (NEGATIVE); Cocaine NEGATIVE (NEGATIVE); METHAMPHETAM NEGATIVE (NEGATIVE); Methadone NEGATIVE (NEGATIVE); Opiates NEGATIVE (NEGATIVE); Phencyclidine NEGATIVE (NEGATIVE); THC Cannibis POSITIVE (NEGATIVE)
[2023-09-02 18:41] LABS: Specific Gravity 1.021 (1.005-1.030)
--- NOTE | 2023-09-02 22:13 | EDPHYS ---
Physician Documentation [facility] Name: Taylor Rodriguez Age: 28 yrs Sex: Female : 1995 Arrival Date: 09/02/2023 Time: 15:32 Bed 4 Private MD: ED Physician Last Barrientos HPI: 09/02 15:36 This 28 yrs old Black Female presents to ER via Unassigned with complaints of sb4 intentional overdose. 15:36 The patient presents to the emergency department after a known overdose, that was sb4 intentional. 16:38 Context: Method: the patient has a confirmed or suspected ingestion. sb4 16:39 Patient states that she had an argument with her mom and a friend this morning and her sb4 mom said very ugly things to her. she was very upset and thought that she would be better off . she then took a handful of pills. she took unknown amounts of Abilify, propranolol, celecoxib, vitamin D, duloxetine, and orphenadrine. Historical: - Allergies: 16:16 Naproxen; ap3 - PMHx: 16:16 Anxiety; Bipolar disorder; Chronic pain; Depression; Fibromyalgia; High Blood Pressure; ap3 Schizophrenia; Seizure; Sleep Apnea; - Immunization history:: Client reports receiving the 2nd dose of the Covid vaccine, Flu vaccine is up to date. - Social history:: Smoking status: Reported history of juuling and/or vaping. ROS: 18:17 Constitutional: Negative for fever, chills, and weight loss, sb4 18:17 Psych: Positive for depression, suicide gesture, suicidal ideation, 18:17 All other systems are negative, Exam: 18:17 Head/Face: Normocephalic, atraumatic. Eyes: Extra-ocular motions intact. Periorbital sb4 areas with no swelling, redness, or edema. ENT: Mucous membranes moist. Cardiovascular: Regular rate and rhythm with a normal S1 and S2. Respiratory: Lungs have equal breath sounds bilaterally, clear to auscultation and percussion. No rales, rhonchi or wheezes noted. No increased work of breathing, no retractions or nasal flaring. Abdomen/GI: Soft, non-tender, no distension. Skin: Warm, dry with normal turgor. Normal color with no rashes, no lesions, and no evidence of cellulitis. MS/ Extremity: Pulses equal, no cyanosis. Neurovascular intact. Full, normal range of motion. Neuro: Awake and alert, GCS 15, oriented to person, place, time, and situation. Motor strength 5/5 in all extremities. Sensory grossly intact. 18:17 Constitutional: The patient appears alert, awake, obese, tearful 18:17 Psych: Behavior/mood is cooperative, suicidal, depressed, Affect is flat, Patient having thoughts of suicide. Judgement / Insight is normal. Memory is normal. Delusions/hallucinations are not present. Vital Signs: 16:13 BP 118 / 87; Pulse 74; Resp 18; Temp 98.1; Pulse Ox 98% on R/A; Weight 135.62 kg; ap3 Height 5 ft. 3 in. ; 16:53 BP 127 / 88; Pulse 67; Pulse Ox 97% on R/A; ap3 18:17 BP 107 / 84; Pulse 70; Pulse Ox 100% on R/A; ap3 19:00 BP 111 / 93; Pulse 71; Resp 18; Pulse Ox 96% on R/A; jb4 21:00 BP 115 / 87; Pulse 73; Resp 16; Pulse Ox 97% on R/A; jb4 16:13 Body Mass Index 52.96 (135.62 kg, 160.02 cm) ap3 MDM: 15:34 Patient medically screened. sb4 18:17 Differential diagnosis: polypharmacy, over medication, depression, suicidal ideation, sb4 psychotic break. 18:42 Awaiting: Psychiatric narcotics detective. sb4 18:42 Data reviewed: vital signs, nurses notes, EMS record, lab test result(s), EKG, sb4 radiologic studies. 22:13 Management of patient was discussed with the following: Behavioral Health Provider: sb4 recommends inpatient. Care significantly affected by the following chronic conditions: Hypertension, depression, anxiety, bipolar disorer. Counseling: I had a detailed discussion with the patient and/or guardian regarding the historical points, exam findings, and any diagnostic results supporting the discharge/admit diagnosis, lab results, radiology results, the need to transfer to another facility, for higher level of care, [facility] does not immediately have the required specialist. 09/02 15:34 Order name: Acetaminophen; Complete Time: 16:42 sb4 09/02 15:34 Order name: Basic Metabolic Panel; Complete Time: 16:42 sb4 09/02 15:34 Order name: CBC with Diff; Complete Time: 16:58 sb4 09/02 15:34 Order name: ETOH Level; Complete Time: 16:39 sb4 09/02 15:34 Order name: Hepatic Function; Complete Time: 16:42 sb4 09/02 15:34 Order name: PT-INR; Complete Time: 17:02 sb4 09/02 15:34 Order name: Test, Urine; Complete Time: 18:41 sb4 09/02 15:34 Order name: Ptt, Activated; Complete Time: 17:02 sb4 09/02 15:34 Order name: Salicylate; Complete Time: 17:02 sb4 09/02 15:34 Order name: Urinalysis w/ reflexes; Complete Time: 18:37 sb4 09/02 15:34 Order name: Urine Drug Screen; Complete Time: 18:41 sb4 09/02 15:34 Order name: EKG; Complete Time: 15:35 sb4 09/02 15:34 Order name: EKG - Nurse/Tech; Complete Time: 16:18 sb4 09/02 15:34 Order name: IV Saline Lock; Complete Time: 16:33 sb4 09/02 15:34 Order name: Labs collected and sent; Complete Time: 16:18 sb4 09/02 15:34 Order name: Suicide Screening ([place]); Complete Time: 16:50 sb4 EC:19 Rate is 68 beats/min. Rhythm is regular, Sinus arrythmia. QRS [place] is Normal. IA sb4 interval is normal at 156 msec. QRS interval is normal at 82 msec. QT interval is normal at 392 msec. No Q waves. T waves are Normal. No ST changes noted. Clinical impression: Normal ECG. Interpreted by me. Reviewed by me. Administered Medications: 17:40 Drug: NS 0.9% IV 1000 ml IV at 1 bolus Per protocol; 1000 mL bolus Route: IV; Rate: 1 ap3 bolus; Site: right antecubital; Disposition Summary: 09/02/23 22:12 Transfer Ordered Notes: Transfer Location: Psychiatric Facility sb4 Reason: Higher level of care sb4 Condition: Fair sb4 Problem: new sb4 Symptoms: are unchanged sb4 Accepting Physician: Dr. Haynes(09/03/23 00:02) jb4 Diagnosis - Suicidal ideations sb4 Discharge Instructions: - Discharge Summary Sheet bc6 Forms: - Medication Reconciliation Form sb4 - SBAR form bc6 Signatures: Dispatcher [employer] Link Nagy RN RN jb4 Lynda Esquivel RN RN [email or web address] Luh Rodriguez, PAMilana PAMilana sb4 Corrections: (The following items were deleted from the chart) 18:18 16:39 Patient states that she had an argument with her mom and a friend this morning sb4 and her mom said very ugly things to her. she was very upset and thought that she would be better off . she then took a handful of pills. sb4 22:49 22:12 pyschiatrist sb4 sb4 09/03 00:02 01 22:49 Dr. Haynes sb4 jb4
--- NOTE | 2023-09-02 22:13 | ER ---
Nurse's Notes [facility] Name: Taylor Rodriguez Age: 28 yrs Sex: Female : 1995 Arrival Date: 09/02/2023 Time: 15:32 Bed 4 Private MD: Diagnosis: Suicidal ideations Presentation: 09/02 16:13 Chief complaint: EMS states: the patient took an unknown amount of the following ap3 medication at approx 1400 today: aripiprazole 20mg, propranolol 10mg, celcoxib 200mg, vitamin D3 50,000 unit, duloxetine 30mg, orphenadrine ER 100mg. patient states "I thought my family would be happier if I wasn't here". Coronavirus screen: At this time, the client does not indicate any symptoms associated with coronavirus-19. Ebola Screen: No symptoms or risks identified at this time. Initial Sepsis Screen: Does the patient meet any 2 criteria? No. Patient's initial sepsis screen is negative. Does the patient have a suspected source of infection? No. Patient's initial sepsis screen is negative. Risk Assessment: Do you want to hurt yourself or someone else? Patient reports desire/thoughts of hurting themselves or someone else. Provider notified. Onset of symptoms was September 02, 2023 at 14:00. 16:13 Method Of Arrival: EMS: [facility] ap3 16:13 Acuity: MILAN 2 ap3 Triage Assessment: 16:17 General: Appears in no apparent distress. Behavior is calm. Pain: Complains of pain in ap3 left shoulder Pain began gradually. Neuro: Level of Consciousness is awake, alert, obeys commands, Oriented to person, place, time, situation. Cardiovascular: Patient's skin is warm and dry. Respiratory: Airway is patent Respiratory effort is even, unlabored, Respiratory pattern is regular, symmetrical. Historical: - Allergies: 16:16 Naproxen; ap3 - PMHx: 16:16 Anxiety; Bipolar disorder; Chronic pain; Depression; Fibromyalgia; High Blood Pressure; ap3 Schizophrenia; Seizure; Sleep Apnea; - Immunization history:: Client reports receiving the 2nd dose of the Covid vaccine, Flu vaccine is up to date. - Social history:: Smoking status: Reported history of juuling and/or vaping. Screenin:18 [facility] ED Fall Risk Assessment (Adult) History of falling in the last 3 months, ap3 including since admission No falls in past 3 months (0 pts). Nutritional screening: No deficits noted. Tuberculosis screening: No symptoms or risk factors identified. 09/03 00:01 Abuse screen: Denies threats or abuse. jb4 Assessment: 09/02 16:52 General: patient states "I didn't plan on taking all the medication, I was just really ap3 sad and it just happened. I thought my family would be happier if I wasn't here". 17:15 Reassessment: No changes from previously documented assessment. ap3 17:35 Reassessment: No changes from previously documented assessment. ap3 17:55 Reassessment: No changes from previously documented assessment. Patient and/or family ap3 updated on plan of care and expected duration. Pain level reassessed. 18:18 General: assisted patient to bedside commode. . ap3 19:00 Reassessment: Patient appears in no apparent distress at this time. Patient and/or jb4 family updated on plan of care and expected duration. Pain level reassessed. Patient is alert, oriented x 3, equal unlabored respirations, skin warm/dry/pink. Pt is currently denying SI, reports that her plan would still be to overdose on her home medications. Report Auditory hallucinations that are not telling her to harm herself, is also reporting visual hallucinations describing them as "shadow people" who are telling her she should hurt herself and that she would be better of not being here. 20:28 General: [facility] at bedside . as6 20:45 Reassessment: [facility] at the bedside. jb4 21:45 Reassessment: Patient appears in no apparent distress at this time. Patient and/or jb4 family updated on plan of care and expected duration. Pain level reassessed. Patient is alert, oriented x 3, equal unlabored respirations, skin warm/dry/pink. 22:45 Reassessment: Patient appears in no apparent distress at this time. Patient and/or jb4 family updated on plan of care and expected duration. Pain level reassessed. Patient is alert, oriented x 3, equal unlabored respirations, skin warm/dry/pink. 23:45 Reassessment: Patient appears in no apparent distress at this time. Patient and/or jb4 family updated on plan of care and expected duration. Pain level reassessed. Patient is alert, oriented x 3, equal unlabored respirations, skin warm/dry/pink. Psych: 16:50 [place] Suicide Severity Screening: In the past month, have you wished you were ap3 or wished you could go to sleep and not wake up? Patient responds "yes." "In the past month, have you actually had any thoughts of killing yourself?" Patient responds "yes." "In your lifetime, have you ever done anything, started to do anything, or prepared to do anything to end your life?" Patient responds "yes." Patient reports suicidal intent within 3 past months. Subjective: Patient's mood is sad, Delusions are denied, Hallucinations are denied Having thoughts of suicide. Plan for suicide is patient took unknown amount of home medications at approx 1400 today. Objective: Patient is cooperative, Speech is soft. Interventions: Patient placed in hospital gown. Searched person for dangerous items. Safety Checks: No visitors are present at this time. Pt denies substance abuse. Vital Signs: 16:13 BP 118 / 87; Pulse 74; Resp 18; Temp 98.1; Pulse Ox 98% on R/A; Weight 135.62 kg; ap3 Height 5 ft. 3 in. ; 16:53 BP 127 / 88; Pulse 67; Pulse Ox 97% on R/A; ap3 18:17 BP 107 / 84; Pulse 70; Pulse Ox 100% on R/A; ap3 19:00 BP 111 / 93; Pulse 71; Resp 18; Pulse Ox 96% on R/A; jb4 21:00 BP 115 / 87; Pulse 73; Resp 16; Pulse Ox 97% on R/A; jb4 16:13 Body Mass Index 52.96 (135.62 kg, 160.02 cm) ap3 ED Course: 15:34 Patient arrived in ED. sb4 15:34 Luh Rodriguez PA-C is [facility]. sb4 15:34 Last Barrientos MD is Attending Physician. sb4 16:12 Lynda Esquivel, ROQUE is Primary Nurse. ap3 16:16 Triage completed. ap3 16:18 Arm band placed on left wrist. ap3 16:18 Patient has correct armband on for positive identification. Placed in gown. Bed in low ap3 position. Call light in reach. Side rails up X2. Adult w/ patient. gambling monitor on. Pulse ox on. NIBP on. 18:17 Urinalysis w/ reflexes Sent. ap3 18:17 Test, Urine Sent. ap3 18:17 Urine Drug Screen Sent. ap3 18:51 spoke with Artur at [facility] . for an evaluation. bc6 19:25 [facility] CALLED WITH UPDATE, ETA 1 HOUR. kmf 20:29 Primary Nurse role handed off by Lynda Esquivel, RN as6 21:13 Link Nath, RN is Primary Nurse. jb4 22:27 CHERRY FROM [facility] CALLED TO DO NURSE TO NURSE. kmf 22:35 PT WAS ACCEPTED TO [facility] BY ADMIN BUFFY ROJAS 22;35. ACCEPTING DR STAFFORD [facility] CHOCO \\T\\ 22:35. REQUESTED [facility] FOR PT TRANSFER \\T\\[id number], WITH ETA OF 10-15 MINS. 09/03 00:01 No provider procedures requiring assistance completed. IV discontinued, intact, jb4 bleeding controlled, No redness/swelling at site. Pressure dressing applied. Administered Medications: 09/02 17:40 Drug: NS 0.9% IV 1000 ml IV at 1 bolus Per protocol; 1000 mL bolus Route: IV; Rate: 1 ap3 bolus; Site: right antecubital; Outcome: 22:12 ER care complete, transfer ordered by . sb4 09/03 00:01 Transferred by ground EMS to other acute care facility: [facility]. jb4 Condition: stable Discharge instructions given to patient, Instructed on the need for admit, Demonstrated understanding of instructions, 00:02 Patient left the ED. jb4 Signatures: Link Nath, RN ROQUE jb4 Lynda Esquivel, Marin Scott RN, RN RN as6 Luh Rodriguez, PAMilana PAMilana sb4 Angelica Lantigua 6 Jelena Sapp [facility]
[2023-09-03 02:20] VITALS: TEMP 98.1
[2023-09-03 02:31] VITALS: O2SAT 97
[2023-09-03 02:41] VITALS: BP 115/87
--- NOTE | 2023-09-04 13:42 | EKG ---
Test Date: 2023-09-02 Test Time: 16:04:44 [employer] Disability Teacher: ALP MEASUREMENT RESULTS: Intervals: Rate: 68 MA: 156 QRSD: 82 QT: 392 QTc: 416 [place]: P: 18 MA: 156 QRS: 27 T: 6 INTERPRETIVE STATEMENTS: Normal sinus rhythm with sinus arrhythmia Normal ECG Compared to ECG 07/19/2023 15:53:14 No significant changes Electronically Signed On 09-04-23 13:39:26 BRANCH ACCOUNT EXECUTIVE by Parmjit Yepez
== END ==
LOC: ER 15:32
DX: R45.851 Suicidal ideations (principal); Z87.891 Personal history of nicotine dependence
CPT/HCPCS: 85025; 81001; 80048; 36415; 81025; 85610; 80076; 85730; 80307; 99285; 80143; 80179; 82077; J7030; 93005

== ENCOUNTER 2024-01-02 08:00 | Emergency (ER) | payer OTHER ==
[2024-01-02] MEDS ORDERED: NA CHLORIDE 0.9% 500 ML ONE (08:12)
[2024-01-02] MEDS ORDERED: HYDROCODONE/APAP 10/325 TAB ONE (08:12)
[2024-01-02 08:47] LABS: Absolute Eosinophils 0.3 K/uL (0-0.5); Absolute Lymphocytes (CBC) 1.9 K/uL (0.7-4.9); Absolute Monocytes 0.3 K/uL (0.1-1.3); Basophils % 0.5 % (0-1.3); Eosinophils % 4.1 % (0-4.4); Hematocrit 35.4 % (36.0-45.0); Hemoglobin 11.8 g/dL (12.0-15.0); MCH 28.5 pg (27.0-35.0); MCHC 33.3 g/dL (32.0-36.0); MCV 85.8 fL (80-100); MPV 9.1 fL (7.6-11.3); Monocytes % 3.5 % (3.3-12.3); Neutrophils % 66.9 % (41.7-73.7); Platelets 243 thou/uL (152-406); RBC Red Blood Cell Count 4.12 M/uL (3.86-4.86); Red Cell Distribution Width 14.3 % (12.1-15.2)
[2024-01-02 08:51] LABS: Anion Gap 6.6 mEq/L (5.0-15.0); Potassium 3.6 mEq/L (3.5-5.1)
[2024-01-02] MEDS ORDERED: ONDANSETRON 4 MG/2 ML VIAL ONE (09:18)
[2024-01-02] MEDS ORDERED: MORPHINE 4 MG/ML SYR ONE (09:19)
[2024-01-02 09:43] LABS: Specific Gravity 1.017 (1.005-1.030)
[2024-01-02 09:44] LABS: Specific Gravity 1.017 (1.005-1.030); Sqamous Epithelial <5 /HPF (None Seen); Urine Bacteria None Seen /HPF (<20); Urine Bilirubin NEGATIVE (Negative); Urine Blood 3+ (OVER) (Negative); Urine Clarity Extremely Turbid (Clear); Urine Color Brown (Yellow); Urine Culture Reflex Order NOT NEEDED; Urine Glucose NEGATIVE (Negative); Urine Ketones NEGATIVE (Negative); Urine Microscopic Reflex YN ORDER UMIC; Urine Nitrite NEGATIVE (Negative); Urine Protein TRACE (Negative); Urine RBC >50 /HPF (None Seen); Urine Urobilinogen Normal (Normal); Urine WBC <5 /HPF (<5)
--- NOTE | 2024-01-02 10:19 | RAD REPORT ---
EXAM DESCRIPTION: CT - Head Brain Wo Cont - 01/02/2024 10:09 am CLINICAL HISTORY: HEADACHE COMPARISON: Head angio dated 01/02/2024; Head Brain Wo Cont dated 07/19/2023 TECHNIQUE: All CT scans are performed using dose optimization technique as appropriate and may inclu de automated exposure control or mA/KV adjustment according to patient size. FINDINGS: No intracranial hemorrhage, hydrocephalus or extra-axial fluid collection.No areas of brai n edema or evidence of midline shift. The paranasal sinuses and mastoids are clear. The calvarium is intact. IMPRESSION: No acute intracranial abnormality.
--- NOTE | 2024-01-02 10:25 | RAD REPORT ---
EXAM DESCRIPTION: CT - Head angio - 01/02/2024 10:12 am CLINICAL HISTORY: HEADACHE COMPARISON: Head Brain Wo Cont dated 07/19/2023; Head Brain Wo Cont dated 06/27/2023 TECHNIQUE: CT angiography of the head was performed with maximum intensity reformatted images. 3D ma ximum intensity pixel (MIP) reconstructions were created All CT scans are performed using dose optimization technique as appropriate and may include automated exposure control or mA/KV adjustment according to patient size. FINDINGS: Anterior circulation: No aneurysm or large vessel occlusion. No hemodynamically significant stenosis. No arteriovenous malf ormation identified. Posterior circulation: No aneurysm or large vessel occlusion. No hemodynamically significant stenosis. No arteriovenous malf ormation identified. IMPRESSION: No significant flow abnormality is detected. No aneurysm identified .
[2024-01-02] MEDS ORDERED: dexAMETHasone 10 MG/ML VIAL ONE (10:33)
--- NOTE | 2024-01-02 10:33 | ER ---
Nurse's Notes [facility] Name: Taylor Rodriguez Age: 28 yrs Sex: Female : 1995 Arrival Date: 01/02/2024 Time: 08:00 Bed 13 Private MD: Diagnosis: Headache;Myalgia Presentation: 01/01 08:02 Chief complaint: Patient states: right head pain x2 weeks, left arm pain x4 days and kc6 chest pain this AM. Coronavirus screen: At this time, the client does not indicate any symptoms associated with coronavirus-19. Ebola Screen: No symptoms or risks identified at this time. Initial Sepsis Screen: Does the patient meet any 2 criteria? No. Patient's initial sepsis screen is negative. Does the patient have a suspected source of infection? No. Patient's initial sepsis screen is negative. Risk Assessment: Do you want to hurt yourself or someone else? Patient reports no desire to harm self or others. Onset of symptoms was January 02, 2024. 08:02 Method Of Arrival: EMS: [facility] kc6 08:02 Acuity: MILAN 3 kc6 Triage Assessment: 08:02 General: Appears in no apparent distress. uncomfortable, obese, well groomed, well kc6 developed, Behavior is calm, cooperative, appropriate for age. Pain: Complains of pain in face, chest and left arm Pain currently is 10 out of 10 on a pain scale. EENT: No signs and/or symptoms were reported regarding the EENT system. Neuro: Level of Consciousness is awake, alert, obeys commands, Oriented to person, place, time, situation, Appropriate for age. Cardiovascular: Capillary refill < 3 seconds. Respiratory: Airway is patent Trachea midline Respiratory effort is even, unlabored, Respiratory pattern is regular, symmetrical. GI: No signs and/or symptoms were reported involving the gastrointestinal system. : No signs and/or symptoms were reported regarding the genitourinary system. Derm: No signs and/or symptoms reported regarding the dermatologic system. Skin is intact, is healthy with good turgor, Skin is pink, warm \T\ dry. Musculoskeletal: No signs and/or symptoms reported regarding the musculoskeletal system. Circulation, motion, and sensation intact. Capillary refill < 3 seconds, Range of motion: intact in all extremities. 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 - Infectious Disease History:: Denies. - Social history:: Smoking status: Patient denies any tobacco usage or history of. - Family history:: not pertinent. - Hospitalizations: : No recent hospitalization is reported. Screenin:05 [facility] ED Fall Risk Assessment (Adult) History of falling in the last 3 months, kc6 including since admission No falls in past 3 months (0 pts) Confusion or Disorientation No (0 pts) Intoxicated or Sedated No (0 pts) Impaired Gait No (0 pts) Mobility Assist Device Used No (0 pt) Altered Elimination No (0 pt) Score/Fall Risk Level 0 - 2 = Low Risk. Abuse screen: Denies threats or abuse. Denies injuries from another. Nutritional screening: No deficits noted. Tuberculosis screening: No symptoms or risk factors identified. Assessment: 08:05 Reassessment: please see triage. kc6 09:05 Reassessment: Patient appears in no apparent distress at this time. No changes from [facility] previously documented assessment. Patient and/or family updated on plan of care and expected duration. Pain level reassessed. Patient is alert, oriented x 3, equal unlabored respirations, skin warm/dry/pink. 10:05 Reassessment: Patient appears in no apparent distress at this time. No changes from [facility] previously documented assessment. Patient and/or family updated on plan of care and expected duration. Pain level reassessed. Patient is alert, oriented x 3, equal unlabored respirations, skin warm/dry/pink. 10:18 Reassessment: Patient states symptoms have not improved. [facility] Vital Signs: 08:02 BP 147 / 104; Pulse 71; Resp 20 S; Pulse Ox 98% on R/A; Weight 135.62 kg (R); Height 5 kc6 ft. 3 in. (R); Pain 10/10; 08:40 BP 148 / 96; kc6 09:36 BP 145 / 83; Pulse 60; Resp 16 S; Pulse Ox 94% on R/A; kc6 08:02 Body Mass Index 52.96 (135.62 kg, 160.02 cm) kc6 08:02 Pain Scale: Adult kc6 [place] Coma Score: 10:32 Eye Response: spontaneous(4). Motor Response: obeys commands(6). Verbal Response: rn oriented(5). Total: 15. ED Course: 08:01 Patient arrived in ED. ld1 08:02 Jewels Rios, RN is Primary Nurse. kc6 08:02 Moses Bell MD is Attending Physician. rn 08:02 Arm band placed on. kc6 08:03 Triage completed. kc6 08:05 Patient has correct armband on for positive identification. Bed in low position. Call kc6 light in reach. Side rails up X2. Client placed on continuous cardiac and pulse oximetry monitoring. NIBP monitoring applied. Lights dimmed. Warm blanket given. Pillow given. 08:25 Inserted saline lock: 20 gauge in right antecubital area, using aseptic technique. kc6 Blood collected. 08:44 Patient requests pain medication. kc6 09:17 Patient requests pain medication. kc6 09:28 Assisted to bedside commode. kc6 09:36 Test, Urine Sent. kc6 09:36 Urinalysis w/ reflexes Sent. kc6 10:11 CT Head Brain wo Cont In Process Unspecified. EDMS 10:[address] In Process Unspecified. EDMS 10:47 No provider procedures requiring assistance completed. IV discontinued, intact, kc6 bleeding controlled, No redness/swelling at site. Pressure dressing applied. Administered Medications: 08:14 Drug: HYDROcodone-acetaminophen PO 10 mg-325 mg 1 tabs PO once Route: PO; kc6 08:44 Follow up: Response: No adverse reaction; Pain is unchanged, physician notified; RASS: kc6 Alert and Calm (0) 08:25 Drug: NS 0.9% IV 500 ml IV at bolus once Route: IV; Rate: bolus; Site: right kc6 antecubital; 09:17 Follow up: Response: No adverse reaction; IV Status: Completed infusion; IV Intake: kc6 500ml 09:23 Drug: morphine IVP or IV 4 mg IVP once over 4 mins Route: IVP; Infused Over: 4 mins; kc6 Site: right antecubital; 10:19 Follow up: Response: No adverse reaction; Pain is unchanged, physician notified; RASS: kc6 Alert and Calm (0) 09:23 Drug: Ondansetron IVP 4 mg IVP once; over 2 minutes Route: IVP; Site: right antecubital;kc6 10:19 Follow up: Response: No adverse reaction kc6 10:37 Drug: Decadron - Dexamethasone IVP 10 mg IVP once Route: IVP; Site: right antecubital; kc6 10:47 Follow up: Response: No adverse reaction kc6 Medication: 10:47 VIS not applicable for this client. kc6 Intake: 09:17 IV: 500ml; Total: 500ml. kc6 Outcome: 10:33 Discharge ordered by . rn 10:47 Discharged to home via wheelchair, with family, kc6 10:47 Condition: good 10:47 Discharge instructions given to patient, Instructed on discharge instructions, follow up and referral plans. Demonstrated understanding of instructions, follow-up care, 10:47 Patient left the ED. kc6 Signatures: Dispatcher [employer] EDMS Moses Bell MD MD rn Sims, Lauren, RN RN ld1 Jewels Rios RN RN kc6
--- NOTE | 2024-01-02 10:33 | EDPHYS ---
Physician Documentation [facility] Name: Taylor Rodriguez Age: 28 yrs Sex: Female : 1995 Arrival Date: 01/02/2024 Time: 08:00 Bed 13 Private MD: ED Physician Moses Bell HPI: 01/01 08:20 This 28 yrs old Black Female presents to ER via EMS with complaints of headache. rn 08:20 The patient complains of pain to the right frontal area, right temporal area and right rn occipital area. The patient describes the headache as aching. Onset: The symptoms/episode began/occurred 2 week(s) ago. Associated signs and symptoms: Pertinent negatives: altered mental status, fever, neck stiffness, rash, vision loss. Severity of symptoms: At its worst the pain was moderate, "similar to past headaches", in the emergency department the pain is unchanged. The symptoms are alleviated by nothing. the symptoms are aggravated by lights, noise. The patient has experienced similar episodes in the past. The patient has not recently seen a physician. 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 - Infectious Disease History:: Denies. - Social history:: Smoking status: Patient denies any tobacco usage or history of. - Family history:: not pertinent. - Hospitalizations: : No recent hospitalization is reported. ROS: 08:23 Constitutional: Negative for fever, chills, and weight loss, ENT: Negative for injury, rn pain, and discharge, Neck: Negative for injury, pain, and swelling, Cardiovascular: Negative for chest pain, palpitations, and edema, Respiratory: Negative for shortness of breath, cough, wheezing, and pleuritic chest pain, Abdomen/GI: Negative for abdominal pain, nausea, vomiting, diarrhea, and constipation, Back: Negative for injury and pain, MS/Extremity: Negative for injury and deformity, Skin: Negative for injury, rash, and discoloration, Neuro: Positive for headache and generalized weakness Exam: 08:23 Constitutional: Overweight patient, in no acute distress Head/Face: Normocephalic, rn atraumatic. Eyes: Pupils equal round and reactive to light, extra-ocular motions intact. Lids and lashes normal. Conjunctiva and sclera are non-icteric and not injected. Cornea within normal limits. Periorbital areas with no swelling, redness, or edema. ENT: No stridor, dry mucous membranes Neck: Trachea midline, no masses palpated, and no cervical lymphadenopathy. Supple, full range of motion without nuchal rigidity, or vertebral point tenderness. No Meningismus. Cardiovascular: Regular rate and rhythm. No pulse deficits. Abdomen/GI: Soft, nontender MS/ Extremity: Pulses equal, no cyanosis. Neuro: Awake and alert, GCS 15, oriented to person, place, time, and situation. Cranial nerves II-XII grossly intact. Motor strength 5/5 in all extremities. Sensory grossly intact. Cerebellar exam normal. Vital Signs: 08:02 BP 147 / 104; Pulse 71; Resp 20 S; Pulse Ox 98% on R/A; Weight 135.62 kg (R); Height 5 kc6 ft. 3 in. (R); Pain 10/10; 08:40 BP 148 / 96; kc6 09:36 BP 145 / 83; Pulse 60; Resp 16 S; Pulse Ox 94% on R/A; kc6 08:02 Body Mass Index 52.96 (135.62 kg, 160.02 cm) kc6 08:02 Pain Scale: Adult kc6 Tori Coma Score: 10:32 Eye Response: spontaneous(4). Motor Response: obeys commands(6). Verbal Response: rn oriented(5). Total: 15. MDM: 08:02 Patient medically screened. rn 10:32 Differential diagnosis: hypertensive headache, intracerebral hemorrhage, migraine, rn neoplasm, tension headache, vasomotor headache. Data reviewed: vital signs, nurses notes, lab test result(s), radiologic studies, CT scan, and as a result, I will discharge patient. Counseling: I had a detailed discussion with the patient and/or guardian regarding the historical points, exam findings, and any diagnostic results supporting the discharge/admit diagnosis, lab results, radiology results, the need for outpatient follow up, to return to the emergency department if symptoms worsen or persist or if there are any questions or concerns that arise at home. Special discussion: I discussed with the patient/guardian in detail that at this point there is no indication for admission to the hospital. It is understood, however, that if the symptoms persist or worsen the patient needs to return immediately for re-evaluation. Based on the history and exam findings, there is no indication for further emergent testing or inpatient evaluation. I discussed with the patient/guardian the need to see the neurologist for further evaluation of the symptoms. I discussed with the patient/guardian the need to see the primary care provider for further evaluation of the symptoms. 10:32 ED course: I have personally reviewed all of the results, including but not limited to rn blood tests and imaging deemed necessary to safely discharge this patient at this time. All results given to and printed out for patient. I personally went over all the results with the patient and answered all questions. Patient will follow-up with PCP and or specialist as discussed. Return precautions given and understood.. 01/01 08:09 Order name: CBC with Diff; Complete Time: 09:11 rn 01/01 08:09 Order name: Basic Metabolic Panel; Complete Time: 09:11 rn 01/01 08:09 Order name: Test, Urine; Complete Time: 10:02 rn 01/01 08:09 Order name: Urinalysis w/ reflexes; Complete Time: 10:02 rn 01/01 08:09 Order name: CT Head Brain wo Cont; Complete Time: 10:27 rn 01/01 08:09 Order name: Head Angio CT; Complete Time: 10:27 rn 01/01 08:09 Order name: IV Start; Complete Time: 08:25 rn Administered Medications: 08:14 Drug: HYDROcodone-acetaminophen PO 10 mg-325 mg 1 tabs PO once Route: PO; kc6 08:44 Follow up: Response: No adverse reaction; Pain is unchanged, physician notified; RASS: kc6 Alert and Calm (0) 08:25 Drug: NS 0.9% IV 500 ml IV at bolus once Route: IV; Rate: bolus; Site: right kc6 antecubital; 09:17 Follow up: Response: No adverse reaction; IV Status: Completed infusion; IV Intake: kc6 500ml 09:23 Drug: morphine IVP or IV 4 mg IVP once over 4 mins Route: IVP; Infused Over: 4 mins; kc6 Site: right antecubital; 10:19 Follow up: Response: No adverse reaction; Pain is unchanged, physician notified; RASS: kc6 Alert and Calm (0) 09:23 Drug: Ondansetron IVP 4 mg IVP once; over 2 minutes Route: IVP; Site: right antecubital;kc6 10:19 Follow up: Response: No adverse reaction kc6 10:37 Drug: Decadron - Dexamethasone IVP 10 mg IVP once Route: IVP; Site: right antecubital; kc6 10:47 Follow up: Response: No adverse reaction kc6 Disposition Summary: 01/02/24 10:33 Discharge Ordered Notes: Location: Home rn Problem: an ongoing problem rn Symptoms: have improved rn Condition: Stable rn Diagnosis - Headache rn - Myalgia rn Followup: rn - With: Private Physician - When: As needed - Reason: Recheck today's complaints, Re-evaluation by your physician Discharge Instructions: - Discharge Summary Sheet rn - Migraine Headache rn - Hypertension, Adult rn Forms: - Medication Reconciliation Form rn - Antibiotic hybrid corn breeder - Prescription Opioid Use rn - Patient Portal Instructions rn - Leadership Thank You Letter rn Signatures: Dispatcher [employer] EDMS Moses Bell MD MD rn Sims, Lauren, RN RN ld1 Jewels Rios RN RN kc6 Corrections: (The following items were deleted from the chart) 08:10 08:10 CBC+H.LAB.BRZ ordered. EDMS EDMS 08:10 08:10 BASIC METABOLIC PANEL+C.LAB.BRZ ordered. EDMS EDMS 08:10 08:10 Test, Urine+UC.LAB.BRZ ordered. EDMS EDMS 08:10 08:10 Urinalysis+U.LAB.BRZ ordered. EDMS EDMS
[2024-01-02 15:14] VITALS: BP 145/83; O2SAT 94
== END 2024-01-02 10:47 | disposition home or self-care (01) ==
LOC: ER 08:00
DX: R51.9 Headache, unspecified (principal); M79.10 Myalgia, unspecified site; Z88.6 Allergy status to analgesic agent
CPT/HCPCS: 96361; 85025; 81001; 80048; 36415; 81025; 70450; 70496; 96375; 96374; 99284; Q9967; J1100; J2405; J7040

== ENCOUNTER 2024-03-02 01:25 | Emergency (ER) | payer OTHER ==
[2024-03-02] MEDS ORDERED: DIPHENHYDRAMINE 50 MG/ML VIAL ONE (02:45)
[2024-03-02] MEDS ORDERED: METOCLOPRAMIDE 10 MG/2mL INJ ONE (02:45)
[2024-03-02] MEDS ORDERED: NA CHLORIDE 0.9% 1,000 ML ONE (02:45)
[2024-03-02] MEDS ORDERED: KETOROLAC 30 MG/ML INJ ONE (02:45)
--- NOTE | 2024-03-02 06:17 | ER ---
Nurse's Notes [facility] Name: Taylor Rodriguez Age: 28 yrs Sex: Female : 1995 Arrival Date: 03/02/2024 Time: 01:25 Bed 20 Private MD: Diagnosis: Migraine without aura, not intractable Presentation: 03/02 02:03 Chief complaint: Patient states: Headache that began this morning. HX of migraines, but ss states, this one feels different.". Coronavirus screen: Client denies travel out of the [place] in the last 14 days. Ebola Screen: Patient denies exposure to infectious person. Patient denies travel to an Ebola-affected area in the 21 days before illness onset. Initial Sepsis Screen: Does the patient meet any 2 criteria? No. Patient's initial sepsis screen is negative. Does the patient have a suspected source of infection? No. Patient's initial sepsis screen is negative. Risk Assessment: Do you want to hurt yourself or someone else? Patient reports no desire to harm self or others. Onset of symptoms was March 02, 2024. 02:03 Method Of Arrival: Ambulatory 02:03 Acuity: MILAN 3 ss Historical: - Allergies: 02:05 Naproxen; ss - PMHx: 02:05 Anxiety; Bipolar disorder; Chronic pain; Depression; Fibromyalgia; High Blood Pressure; ss Schizophrenia; Seizure; Sleep Apnea; - Immunization history:: Client reports receiving the 2nd dose of the Covid vaccine. - Infectious Disease History:: Denies. - Social history:: Smoking status: Patient denies any tobacco usage or history of. - Family history:: not pertinent. Screenin:30 [facility] ED Fall Risk Assessment (Adult) History of falling in the last 3 months, jb4 including since admission No falls in past 3 months (0 pts) Confusion or Disorientation No (0 pts) Intoxicated or Sedated No (0 pts) Impaired Gait No (0 pts) Mobility Assist Device Used Yes (1 pt) Altered Elimination No (0 pt) Score/Fall Risk Level 0 - 2 = Low Risk Oriented to surroundings, Maintained a safe environment. Abuse screen: Denies threats or abuse. Nutritional screening: No deficits noted. Tuberculosis screening: No symptoms or risk factors identified. Assessment: 02:30 General: Appears in no apparent distress. uncomfortable, Behavior is calm, cooperative, jb4 appropriate for age. Pain: Complains of pain in headache Pain does not radiate. Pain currently is 10 out of 10 on a pain scale. Neuro: Level of Consciousness is awake, alert, obeys commands, Oriented to person, place, time, situation. Cardiovascular: Patient's skin is warm and dry. Respiratory: Airway is patent Respiratory effort is even, unlabored, Respiratory pattern is regular, symmetrical. Derm: Skin is intact, Skin is dry, Skin is normal, Skin temperature is warm. Musculoskeletal: Circulation, motion, and sensation intact. Range of motion: intact in all extremities. 04:41 Reassessment: Pt resting peacefully in bed with eyes closed, respirations are even and jb4 unlabored with no s/s of pain or distress noted. 06:47 Reassessment: Patient appears in no apparent distress at this time. Patient and/or jb4 family updated on plan of care and expected duration. Pain level reassessed. Patient is alert, oriented x 3, equal unlabored respirations, skin warm/dry/pink. Vital Signs: 02:03 BP 149 / 91; Pulse 75; Resp 20; Temp 98(TE); Pulse Ox 98% on R/A; Weight 135.62 kg; ss Height 5 ft. 3 in. ; Pain 10/10; 05:30 BP 142 / 96; Pulse 63; Resp 16; Pulse Ox 100% on R/A; jb4 06:30 BP 130 / 92; Pulse 75; Resp 16; Pulse Ox 100% on R/A; jb4 02:03 Body Mass Index 52.96 (135.62 kg, 160.02 cm) ss 02:03 Pain Scale: Adult ss Tori Coma Score: 22:06 Eye Response: spontaneous(4). Motor Response: obeys commands(6). Verbal Response: sp4 oriented(5). Total: 15. NIH Stroke Scale Scores: 22:06 NIHSS Score: 0 sp4 ED Course: 01:28 Patient arrived in ED. mr 01:48 Gibson Montes MD is Attending Physician. sp4 02:05 Triage completed. ss 02:30 Inserted saline lock: 20 gauge in right antecubital area, using aseptic technique. jb4 02:37 Link Nath RN is Primary Nurse. jb4 06:30 Patient has correct armband on for positive identification. Bed in low position. Call jb4 light in reach. Side rails up X 1. Provided Education on: discharge instructions.. 06:48 No provider procedures requiring assistance completed. IV discontinued, intact, jb4 bleeding controlled, No redness/swelling at site. Pressure dressing applied. Administered Medications: 02:53 Drug: NS 0.9% IV 1000 ml IV at 1 bolus Per protocol; 1000 mL bolus Route: IV; Rate: 1 jb4 bolus; Site: right antecubital; 02:54 Drug: Ketorolac IVP 30 mg IVP once Route: IVP; Site: right antecubital; jb4 02:57 Drug: metoCLOPramide IVP 10 mg IVP once; over 1 to 2 minutes Route: IVP; Site: right jb4 antecubital; 02:57 Drug: diphenhydrAMINE IVP 50 mg IVP once Route: IVP; Site: right antecubital; jb4 04:10 Drug: diphenhydrAMINE IVP 50 mg IVP once Route: IVP; Site: right antecubital; jb4 Medication: 06:30 VIS not applicable for this client. jb4 Outcome: 06:16 Discharge ordered by . sp4 06:49 Discharged to home ambulatory, jb4 06:49 Condition: stable 06:49 Discharge instructions given to patient, Instructed on discharge instructions, follow up and referral plans. no drinking with medication, no driving heavy equipment, medication usage, Demonstrated understanding of instructions, follow-up care, medications, Prescriptions given X 1, 06:49 Patient left the ED. jb4 NIH Stroke Scale - NIH Stroke Score Date: 03/02/2024 Time: 22:06 Total Score = 0 10. Dysarthria (speech clarity - read or repeat words) - 0(Normal) 11. Extinction and Inattention (visual/tactile/auditory/spatial/personal) - 0(No abnormality) 1a. Level of Consciousness (LOC) - 0(Alert) 1b. Level of Consciousness (LOC) (Month \\T\\ Age) - 0(Both) 1c. LOC Commands (Open \\T\\ Closes Eyes/[place] Tender) - 0(Both) 2. Best Gaze (Lateral Gaze Paresis) - 0(Normal) 3. Visual Field Loss - 0(No visual loss) 4. Facial Palsy - 0(Normal) 5a. Left Arm: Motor (10-second hold) - 0(No drift) 5b. Right Arm: Motor (10-second hold) - 0(No drift) 6a. Left Leg: Motor (5-second hold - always test supine) - 0(No drift) 6b. Right Leg: Motor (5-second hold - always test supine) - 0(No drift) 7. Limb Ataxia (finger/nose \\T\\ heel/ontiveros - test with eyes open) - 0(Absent) 8. Sensory Loss (pinprick arms/legs/face) - 0(Normal) 9. Best Language: Aphasia (description/naming/reading) - 0(No aphasia) Initials: sp4 Signatures: Marlene Verma, Reg Reg mr Ashlie Castro, RN RN ss Link Nath RN RN jb4 Gibson Montes MD MD sp4
--- NOTE | 2024-03-02 06:17 | EDPHYS ---
Physician Documentation [facility] Name: Taylor Rodriguez Age: 28 yrs Sex: Female : 1995 Arrival Date: 03/02/2024 Time: 01:25 Bed 20 Private MD: ED Physician Gibson Montes HPI: 03/02 01:48 This 28 yrs old Black Female presents to ER via Unassigned with complaints of Head sp4 pain, pressure. 01:48 unknown Historical: Allergies: Naproxen; PMHx: Depression; Fibromyalgia; High sp4 Blood Pressure; Sleep Apnea; Seizure; Schizophrenia; Bipolar disorder; Anxiety; Chronic pain; . 22:06 Patient presents with acute onset moderate headache associated with history of prior sp4 migraine headaches. Patient states this is her typical migraine. Desires headache improvement. Historical: - Allergies: 02:05 Naproxen; ss - PMHx: 02:05 Anxiety; Bipolar disorder; Chronic pain; Depression; Fibromyalgia; High Blood Pressure; ss Schizophrenia; Seizure; Sleep Apnea; - Immunization history:: Client reports receiving the 2nd dose of the Covid vaccine. - Infectious Disease History:: Denies. - Social history:: Smoking status: Patient denies any tobacco usage or history of. - Family history:: not pertinent. ROS: 22:06 Constitutional: Negative for fever, chills, and weight loss, different migraine type sp4 headache 22:06 All other systems are negative, Exam: 22:06 Constitutional: This is a well developed, well nourished patient who is awake, alert, sp4 and in no acute distress. Head/Face: Normocephalic, atraumatic. Eyes: Pupils equal round and reactive to light, extra-ocular motions intact. Lids and lashes normal. Conjunctiva and sclera are not injected. Cornea within normal limits. Periorbital areas with no swelling, redness, or edema. ENT: Nares patent. No nasal discharge, no septal abnormalities noted. Tympanic membranes are normal and external auditory canals are clear. Oropharynx with no redness, swelling, or masses, exudates, or evidence of obstruction, uvula midline. Mucous membranes moist. Neck: Trachea midline, no thyromegaly or masses palpated, and no cervical lymphadenopathy. Supple, full range of motion without nuchal rigidity, or vertebral point tenderness. Chest/axilla: Normal chest wall appearance and motion. Nontender with no deformity. No lesions are appreciated. Cardiovascular: Regular rate and rhythm with a normal S1 and S2. No gallops, murmurs, or rubs. Normal PMI, no JVD. No pulse deficits. Respiratory: Lungs have equal breath sounds bilaterally, clear to auscultation and percussion. No rales, rhonchi or wheezes noted. No increased work of breathing, no retractions or nasal flaring. Abdomen/GI: Soft, with normal bowel sounds. No distension or tympany. No guarding or rebound. No evidence of tenderness throughout. Back: No spinal tenderness. No costovertebral tenderness. Skin: Warm, dry with normal turgor. Normal color with no rashes, no lesions, and no evidence of cellulitis. MS/ Extremity: Pulses equal, no cyanosis. Neurovascular intact. Full, normal range of motion. Neuro: Awake and alert, GCS 15, oriented to person, place, time, and situation. Cranial nerves II-XII grossly intact. Motor strength 5/5 in all extremities. Sensory grossly intact. Psych: Awake, alert, with orientation to person, place and time. Behavior, mood, and affect are within normal limits Vital Signs: 02:03 BP 149 / 91; Pulse 75; Resp 20; Temp 98(TE); Pulse Ox 98% on R/A; Weight 135.62 kg; ss Height 5 ft. 3 in. ; Pain 10/10; 05:30 BP 142 / 96; Pulse 63; Resp 16; Pulse Ox 100% on R/A; jb4 06:30 BP 130 / 92; Pulse 75; Resp 16; Pulse Ox 100% on R/A; jb4 02:03 Body Mass Index 52.96 (135.62 kg, 160.02 cm) ss 02:03 Pain Scale: Adult ss NIH Stroke Scale Scores: 22:06 NIHSS Score: 0 sp4 [place] Coma Score: 22:06 Eye Response: spontaneous(4). Motor Response: obeys commands(6). Verbal Response: sp4 oriented(5). Total: 15. MDM: 01:49 Patient medically screened. sp4 22:06 Differential Diagnosis altered mental status, sepsis, flu. Data reviewed: vital signs, sp4 nurses notes, old medical records. ED course: Headache has resolved. Patient stable for discharge home with p.o. as needed Fioricet. Administered Medications: 02:53 Drug: NS 0.9% IV 1000 ml IV at 1 bolus Per protocol; 1000 mL bolus Route: IV; Rate: 1 jb4 bolus; Site: right antecubital; 02:54 Drug: Ketorolac IVP 30 mg IVP once Route: IVP; Site: right antecubital; jb4 02:57 Drug: metoCLOPramide IVP 10 mg IVP once; over 1 to 2 minutes Route: IVP; Site: right jb4 antecubital; 02:57 Drug: diphenhydrAMINE IVP 50 mg IVP once Route: IVP; Site: right antecubital; jb4 04:10 Drug: diphenhydrAMINE IVP 50 mg IVP once Route: IVP; Site: right antecubital; jb4 Disposition Summary: 03/02/24 06:16 Discharge Ordered Notes: Location: Home sp4 Problem: new sp4 Symptoms: have improved sp4 Condition: Stable sp4 Diagnosis - Migraine without aura, not intractable sp4 Followup: sp4 - With: Private Physician - When: 7 - 10 days - Reason: Recheck today's complaints Discharge Instructions: - Discharge Summary Sheet sp4 - Migraine Headache, [id number] sp4 Prescriptions: - Fioricet 50-300-40 mg Oral capsule - take 1 capsule ORAL route every 6 hours PRN headaches; 30 capsule; Refills: 0, sp4 Product Selection Permitted NIH Stroke Scale - NIH Stroke Score Date: 03/02/2024 Time: 22:06 Total Score = 0 10. Dysarthria (speech clarity - read or repeat words) - 0(Normal) 11. Extinction and Inattention (visual/tactile/auditory/spatial/personal) - 0(No abnormality) 1a. Level of Consciousness (LOC) - 0(Alert) 1b. Level of Consciousness (LOC) (Month \T\ Age) - 0(Both) 1c. LOC Commands (Open \T\ Closes Eyes/Injection [place]) - 0(Both) 2. Best Gaze (Lateral Gaze Paresis) - 0(Normal) 3. Visual Field Loss - 0(No visual loss) 4. Facial Palsy - 0(Normal) 5a. Left Arm: Motor (10-second hold) - 0(No drift) 5b. Right Arm: Motor (10-second hold) - 0(No drift) 6a. Left Leg: Motor (5-second hold - always test supine) - 0(No drift) 6b. Right Leg: Motor (5-second hold - always test supine) - 0(No drift) 7. Limb Ataxia (finger/nose \T\ heel/ontiveros - test with eyes open) - 0(Absent) 8. Sensory Loss (pinprick arms/legs/face) - 0(Normal) 9. Best Language: Aphasia (description/naming/reading) - 0(No aphasia) Initials: sp4 Signatures: Ashlie Castro, RN RN ss Link Nath RN RN jb4 Gibson Montes MD MD sp4
[2024-03-02 06:58] VITALS: BP 130/92; TEMP 98; O2SAT 100
== END 2024-03-02 06:49 | disposition home or self-care (01) ==
LOC: ER 01:25
DX: G43.009 Migraine without aura, not intractable, without status migrainosus (principal)
CPT/HCPCS: 96375; 96374; 99284; J2765; J1200; J7030

== ENCOUNTER 2024-03-08 05:32 | Emergency (ER) | payer OTHER ==
--- NOTE | 2024-03-08 05:57 | ER ---
Nurse's Notes [facility] Name: Taylor Rodriguez Age: 28 yrs Sex: Female : 1995 Arrival Date: 03/08/2024 Time: 05:32 Bed 4 Private MD: Diagnosis: Headache, acute on chronic pain Presentation: 03/08 05:39 Chief complaint: EMS states: Pt called for chin and head pain for 1 week stating " My jb4 pain meds are not strong enough.". Coronavirus screen: At this time, the client does not indicate any symptoms associated with coronavirus-19. Ebola Screen: No symptoms or risks identified at this time. Risk Assessment: Do you want to hurt yourself or someone else? Patient reports no desire to harm self or others. Onset of symptoms was March 08, 2024. Transition of care: patient was not received from another setting of care. 05:39 Method Of Arrival: EMS: [facility] jb4 05:39 Acuity: MILAN 5 jb4 06:10 Initial Sepsis Screen: Does the patient meet any 2 criteria? No. Patient's initial bm8 sepsis screen is negative. Does the patient have a suspected source of infection? No. Patient's initial sepsis screen is negative. 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 - Infectious Disease History:: Denies. - Social history:: Smoking status: Patient denies any tobacco usage or history of. Patient/guardian denies using alcohol, street drugs. Screenin:56 [facility] ED Fall Risk Assessment (Adult) History of falling in the last 3 months, bm8 including since admission No falls in past 3 months (0 pts) Confusion or Disorientation No (0 pts) Intoxicated or Sedated No (0 pts) Impaired Gait Yes (1 pt) Mobility Assist Device Used Yes (1 pt) Altered Elimination No (0 pt) Score/Fall Risk Level 3 or more points = High Risk Oriented to surroundings, Maintained a safe environment, Educated pt \\T\\ family on fall prevention, incl call for assistance when getting out of bed, Assessed \\T\\ reinforced patient's understanding of fall precautions, Hourly rounding (assess needs \\T\\ fall precautionary measures) done, Used ambulatory aids as needed (educated on \\T\\ assisted with), Used gait belt as appropriate Implemented a Fall Risk Plan of Care. Abuse screen: Denies threats or abuse. Nutritional screening: No deficits noted. Tuberculosis screening: No symptoms or risk factors identified. Assessment: 05:56 General: Appears in no apparent distress. uncomfortable, Behavior is calm, cooperative, bm8 appropriate for age. Pain: Complains of pain in NECK AND JAW ON RIGHT SIDE. Neuro: No deficits noted. Level of Consciousness is awake, alert, obeys commands, Oriented to person, place, time, situation, Appropriate for age. Cardiovascular: No deficits noted. Denies chest pain, lightheadedness, shortness of breath, Capillary refill < 3 seconds Patient's skin is warm and dry. Respiratory: Airway is patent Trachea midline Respiratory effort is even, unlabored, Respiratory pattern is regular, symmetrical. GI: No deficits noted. No signs and/or symptoms were reported involving the gastrointestinal system. : No deficits noted. No signs and/or symptoms were reported regarding the genitourinary system. EENT: NO DEFICITS NOTED. Reports NECK PAIN UNDER CHIN. Derm: No signs and/or symptoms reported regarding the dermatologic system. Musculoskeletal: Reports pain in NECK UNDER CHIN. Vital Signs: 06:08 BP 148 / 96; Pulse 77; Resp 19; Temp 98.2; Pulse Ox 99% ; Pain 10/10; bm8 06:08 Pain Scale: Adult bm8 [place] Coma Score: 05:56 Eye Response: spontaneous(4). Motor Response: obeys commands(6). Verbal Response: bm8 oriented(5). Total: 15. 06:08 Eye Response: spontaneous(4). Motor Response: obeys commands(6). Verbal Response: bm8 oriented(5). Total: 15. ED Course: 05:36 Patient arrived in ED. jb4 05:39 Arm band placed on right wrist. jb4 05:40 Triage completed. jb4 05:53 Audi Floyd MD is Attending Physician. sp3 05:56 Onur Hsieh RN is Primary Nurse. bm8 05:56 Patient has correct armband on for positive identification. Bed in low position. Call bm8 light in reach. Side rails up X2. Client placed on continuous cardiac and pulse oximetry monitoring. NIBP monitoring applied. Pulse ox on. NIBP on. Door closed. Noise minimized. Verbal reassurance given. Head of bed elevated. 05:56 No provider procedures requiring assistance completed. bm8 06:08 Provided Education on: POST ER CARE. bm8 06:08 Patient did not have IV access during this emergency room visit. bm8 Administered Medications: 06:07 Drug: Ketorolac IM 60 mg IM once Route: IM; Site: right deltoid; bm8 06:17 Follow up: Response: No adverse reaction bm8 Medication: 05:56 VIS not applicable for this client. bm8 Outcome: 05:57 Discharge ordered by . sp3 06:08 Discharged to home ambulatory, bm8 06:08 Condition: stable 06:08 Discharge instructions given to patient, Instructed on discharge instructions, follow up and referral plans. medication usage, safety practices, Demonstrated understanding of instructions, follow-up care, medications, 06:17 Patient left the ED. bm8 Signatures: Link Nath, RN RN jb4 Audi Floyd MD MD sp3 Onur Hsieh, RN RN bm8
--- NOTE | 2024-03-08 05:57 | EDPHYS ---
Physician Documentation [facility] Name: Taylor Rodriguez Age: 28 yrs Sex: Female : 1995 Arrival Date: 03/08/2024 Time: 05:32 Bed 4 Private MD: ED Physician Audi Floyd HPI: 03/08 05:54 This 28 yrs old Black Female presents to ER via EMS with complaints of headache. sp3 05:54 28-year-old female with history of bipolar disease, schizophrenia, fibromyalgia, sp3 chronic pain, hypertension now presents to the ED with chief complaint acute on chronic pain complaining of headache which is of her typical pattern. She denies any trauma, fever, neck pain, chest pain, shortness of breath, vomiting, diarrhea, rash, bleeding, or any other signs or symptoms on ROS at this time.. 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 - Infectious Disease History:: Denies. - Social history:: Smoking status: Patient denies any tobacco usage or history of. Patient/guardian denies using alcohol, street drugs. ROS: 05:55 Constitutional: Negative for fever, chills, and weight loss, Eyes: Negative for injury, sp3 pain, redness, and discharge, ENT: Negative for injury, pain, and discharge, Neck: Negative for injury, pain, and swelling, Cardiovascular: Negative for chest pain, palpitations, and edema, Respiratory: Negative for shortness of breath, cough, wheezing, and pleuritic chest pain, Abdomen/GI: Negative for abdominal pain, nausea, vomiting, diarrhea, and constipation, Back: Negative for injury and pain, MS/Extremity: Negative for injury and deformity, Skin: Negative for injury, rash, and discoloration, Psych: Negative for depression, anxiety, suicide ideation, homicidal ideation, and hallucinations, Allergy/Immunology: Negative for hives, rash, and allergies, Endocrine: Negative for neck swelling, polydipsia, polyuria, polyphagia, and marked weight changes, Hematologic/Lymphatic: Negative for swollen nodes, abnormal bleeding, and unusual bruising, Exam: 05:55 Constitutional: This is a well developed, well nourished patient who is awake, alert, sp3 and in no acute distress. Head/Face: Normocephalic, atraumatic. Eyes: Pupils equal round and reactive to light, extra-ocular motions intact. Lids and lashes normal. Conjunctiva and sclera are non-icteric and not injected. Cornea within normal limits. Periorbital areas with no swelling, redness, or edema. ENT: Nares patent. No nasal discharge, no septal abnormalities noted. External auditory canals are clear. Oropharynx with no redness, swelling, or masses, exudates, or evidence of obstruction, uvula midline. Mucous membranes moist. Neck: Trachea midline, no thyromegaly or masses palpated, and no cervical lymphadenopathy. Supple, full range of motion without nuchal rigidity, or vertebral point tenderness. No Meningismus. Chest/axilla: Normal chest wall appearance and motion. Nontender with no deformity. No lesions are appreciated. Cardiovascular: Regular rate and rhythm with a normal S1 and S2. No gallops, murmurs, or rubs. Normal PMI, no JVD. No pulse deficits. Respiratory: Lungs have equal breath sounds bilaterally, clear to auscultation and percussion. No rales, rhonchi or wheezes noted. No increased work of breathing, no retractions or nasal flaring. Abdomen/GI: Soft, non-tender, with normal bowel sounds. No distension or tympany. No guarding or rebound. No evidence of tenderness throughout. Back: No spinal tenderness. No costovertebral tenderness. Full range of motion. Skin: Warm, dry with normal turgor. Normal color with no rashes, no lesions, and no evidence of cellulitis. MS/ Extremity: Pulses equal, no cyanosis. Neurovascular intact. Full, normal range of motion. Neuro: Awake and alert, GCS 15, oriented to person, place, time, and situation. Cranial nerves II-XII grossly intact. Motor strength 5/5 in all extremities. Sensory grossly intact. Cerebellar exam normal. Normal gait. Psych: Awake, alert, with orientation to person, place and time. Behavior, mood, and affect are within normal limits. Vital Signs: 06:08 BP 148 / 96; Pulse 77; Resp 19; Temp 98.2; Pulse Ox 99% ; Pain 10/10; bm8 06:08 Pain Scale: Adult bm8 [place] Coma Score: 05:56 Eye Response: spontaneous(4). Motor Response: obeys commands(6). Verbal Response: bm8 oriented(5). Total: 15. 06:08 Eye Response: spontaneous(4). Motor Response: obeys commands(6). Verbal Response: bm8 oriented(5). Total: 15. MDM: 05:56 Data reviewed: vital signs, nurses notes, old medical records. ED course: 28-year-old sp3 female with PMH above now with acute on chronic headache mild in nature. She is requesting ketorolac we will administer that IM and safely discharge her home. No further workup indicated in the ED. Vital signs are normal.. 05:57 Patient medically screened. sp3 Administered Medications: 06:07 Drug: Ketorolac IM 60 mg IM once Route: IM; Site: right deltoid; bm8 06:17 Follow up: Response: No adverse reaction bm8 Disposition Summary: 03/08/24 05:57 Discharge Ordered Notes: Location: Home sp3 Condition: Stable sp3 Diagnosis - Headache, acute on chronic pain sp3 Followup: sp3 - With: Private Physician - When: Upon discharge from the Emergency Department - Reason: Recheck today's complaints, Continuance of care Discharge Instructions: - Discharge Summary Sheet sp3 - Chronic Pain, Adult sp3 Forms: - Medication Reconciliation Form sp3 - Antibiotic Education sp3 - Prescription Opioid Use sp3 - Patient Portal Instructions sp3 - Leadership Thank You Letter sp3 Signatures: Link Nath, RN RN jb4 Audi Floyd MD MD sp3 Onur Hsieh RN RN bm8
[2024-03-08] MEDS ORDERED: KETOROLAC 30 MG/ML INJ ONE ×2 (06:02→06:03)
[2024-03-08 06:42] VITALS: BP 148/96; TEMP 98.2; O2SAT 99
== END 2024-03-08 06:17 | disposition home or self-care (01) ==
LOC: ER 05:32
DX: R51.9 Headache, unspecified (principal); G89.29 Other chronic pain; I10 Essential (primary) hypertension; F41.9 Anxiety disorder, unspecified; M79.7 Fibromyalgia; Z88.8 Allergy status to other drugs, medicaments and biological substances
CPT/HCPCS: 96372; 99284

== ENCOUNTER 2025-01-11 18:33 | Emergency (ER) | payer OTHER ==
[2025-01-11] MEDS ORDERED: NA CHLORIDE 0.9% 1,000 ML ONE (19:43)
[2025-01-11] MEDS ORDERED: ASPIRIN 81 MG CHEWABLE TABLET ONE (19:43)
[2025-01-11 19:44] LABS: Absolute Eosinophils 1.4 K/uL (0-0.5); Absolute Monocytes 0.5 K/uL (0.1-1.3); Absolute Neutrophil 5.1 K/uL (1.8-8.0); Basophils % 0.5 % (0-1.3); Eosinophils % 15.7 % (0-4.4); Hematocrit 40.9 % (36.0-45.0); Hemoglobin 13.9 g/dL (12.0-15.0); Lymphocytes % 22.4 % (15.3-44.8); MCH 28.4 pg (27.0-35.0); MCV 83.7 fL (80-100); MPV 8.3 fL (7.6-11.3); Monocytes % 5.1 % (3.3-12.3); Neutrophils % 56.3 % (41.7-73.7); Platelets 305 thou/uL (152-406); RBC Red Blood Cell Count 4.89 M/uL (3.86-4.86)
[2025-01-11 19:46] LABS: Blood Morphology Comment NOT SEEN (NOT SEEN); Platelet Estimate ADEQ; White Blood Cell Scan OK (OK)
[2025-01-11 19:50] LABS: D-Dimer 0.393 FEUug/mL (0-0.500); PT Prothrombin Time 13.5 SECONDS (10-13.0); Protime INR 1.19
[2025-01-11 19:51] LABS: Specific Gravity 1.026 (1.005-1.030); Sqamous Epithelial 20-50 /HPF (None Seen); Urine Bacteria 20-50 /HPF (<20); Urine Bilirubin NEGATIVE (Negative); Urine Blood 3+ (Negative); Urine Clarity Extremely Turbid (Clear); Urine Color Yellow (Yellow); Urine Crystals Unidentified Few /HPF (None Seen); Urine Culture Reflex Order NOT NEEDED; Urine Glucose NEGATIVE (Negative); Urine Ketones NEGATIVE (Negative); Urine Microscopic Reflex YN ORDER UMIC; Urine Mucus 4+ /HPF (None Seen); Urine Nitrite NEGATIVE (Negative); Urine Protein 1+ (Negative); Urine RBC <5 /HPF (None Seen); Urine Urobilinogen 1+ (Normal); Urine pH 5.5 (5.0-7.0)
[2025-01-11 20:04] LABS: Barbiturates NEGATIVE (NEGATIVE); Benzodiazepines NEGATIVE (NEGATIVE); Cocaine NEGATIVE (NEGATIVE); METHAMPHETAM NEGATIVE (NEGATIVE); Methadone NEGATIVE (NEGATIVE); Opiates NEGATIVE (NEGATIVE); Phencyclidine NEGATIVE (NEGATIVE); THC Cannibis POSITIVE (NEGATIVE)
[2025-01-11 20:11] LABS: Albumin 3.8 g/dL (3.4-5.0); Albumin/Globulin Ratio 0.8 (1.1-1.8); Anion Gap 12.8 mEq/L (5.0-15.0); Bilirubin Direct 0.2 mg/dL (0-0.2); Bilirubin Indirect, Calculated 0.4 mg/dL (0.2-0.8); Bilirubin Total 0.6 mg/dL (0.2-1.0); Globulin 4.9 g/dL (2.3-3.5); Magnesium 1.8 mg/dL (1.6-2.4); Potassium 2.8 mEq/L (3.5-5.1); Protein, Total 8.7 g/dL (6.4-8.2); Troponin High Sensitivity 3.1 pg/mL (<58.9)
--- NOTE | 2025-01-11 20:31 | RAD REPORT ---
EXAMINATION: ONE VIEW CHEST XR CLINICAL INDICATION: Female, 29 years old.,CHEST PAIN TECHNIQUE: Frontal chest projection is submitted. Examination is limited by patient positioning and t echnique. COMPARISON: 08/31/2023 FINDINGS: The lungs are grossly clear although suboptimal inspiratory effort somewhat limits evaluation. No pn eumothorax or sizable effusion. The heart is normal in size. Mediastinal contours are unremarkable. IMPRESSION: No acute intrathoracic abnormalities.
--- NOTE | 2025-01-11 20:34 | ER ---
Nurse's Notes [facility] Name: Taylor Rodriguez Age: 29 yrs Sex: Female : 1995 Arrival Date: 01/11/2025 Time: 18:33 Bed 2 Private MD: Diagnosis: Hypokalemia;Chest pain, unspecified;Fever, unspecified;Cough;Obesity, unspecified Presentation: 01/11 18:45 Chief complaint: EMS states: ACUTE CP WITH SOB. TOOK ALBUTEROL TRX PRIOR TO EMS. db DIAPHORETIC UPON EMS ARRIVAL. Coronavirus screen: Client denies travel out of the [place] in the last 14 days. At this time, the client does not indicate any symptoms associated with coronavirus-19. Ebola Screen: Patient negative for fever greater than or equal to 101.5 degrees Fahrenheit, and additional compatible Ebola Virus Disease symptoms Patient denies exposure to infectious person. Patient denies travel to an Ebola-affected area in the 21 days before illness onset. No symptoms or risks identified at this time. Initial Sepsis Screen: Does the patient meet any 2 criteria? No. Patient's initial sepsis screen is negative. Does the patient have a suspected source of infection? No. Patient's initial sepsis screen is negative. Risk Assessment: Do you want to hurt yourself or someone else? Patient reports no desire to harm self or others. Onset of symptoms was January 11, 2025. 18:45 Method Of Arrival: EMS: [facility] db 18:45 Acuity: MILAN 2 db Triage Assessment: 18:45 General: Appears in no apparent distress. comfortable, Behavior is calm, cooperative. db Pain: Complains of pain in chest. Neuro: Level of Consciousness is awake, alert, obeys commands, Oriented to person, place, time, situation. Respiratory: Reports shortness of breath Airway is patent Respiratory effort is even, unlabored, Respiratory pattern is regular, symmetrical. Historical: - Allergies: 18:45 Naproxen; db - PMHx: 18:45 Anxiety; Chronic pain; Depression; Bipolar disorder; Fibromyalgia; High Blood Pressure; db Schizophrenia; Seizure; Sleep Apnea; Asthma; - Immunization history:: Adult Immunizations unknown. - Infectious Disease History:: Denies. - Social history:: Smoking status: Reported history of juuling and/or vaping. Screenin:53 [facility] ED Fall Risk Assessment (Adult) History of falling in the last 3 months, kd3 including since admission No falls in past 3 months (0 pts) Confusion or Disorientation No (0 pts) Intoxicated or Sedated No (0 pts) Impaired Gait Yes (1 pt) Mobility Assist Device Used Yes (1 pt) Altered Elimination No (0 pt) Score/Fall Risk Level 0 - 2 = Low Risk Oriented to surroundings. Abuse screen: Denies threats or abuse. Denies injuries from another. Nutritional screening: No deficits noted. Tuberculosis screening: No symptoms or risk factors identified. Assessment: 18:58 Reassessment: Patient appears in no apparent distress at this time. SEE TRIAGE FOR db INITIAL ASSESSMENT. 19:49 General: Pt ASSISTED TO THE RESTROOM VIA BEDSIDE COMMODE. URINE SAMPLE COLLECTED AND kd3 SENT TO LAB. Pt PLACED BACK ON CONTINUOUS MONITORING. MEDICATIONS ADMINISTERED. . Pain: Complains of pain in chest, right leg and left leg. Neuro: Level of Consciousness is awake, alert, obeys commands, Oriented to person, place, time, situation. Respiratory: Airway is patent Trachea midline Respiratory effort is even, unlabored, Respiratory pattern is regular, symmetrical. 20:35 General: PT ON DISCHARGE HOLD. PT WORK UP NOT COMPLETE. . kd3 21:08 General: Pt REFUSES ADDITIONAL IV FLUIDS. pt DID NOT RECEIVE FULL SEPSIS FLUID AMOUNT. .kd3 Vital Signs: 18:45 BP 125 / 70; Pulse 118; Resp 22; Temp 99.1(O); Pulse Ox 97% on R/A; Weight 148 kg; db Height 5 ft. 3 in. ; 19:53 BP 98 / 76; Pulse 106; Resp 20; Pulse Ox 97% on R/A; kd3 20:51 BP 109 / 88; Pulse 95; Resp 16; Pulse Ox 99% on R/A; kd3 21:30 BP 115 / 82; Pulse 97; Resp 19; Pulse Ox 97% on R/A; kd3 22:15 BP 128 / 82; Pulse 72; Resp 19; Pulse Ox 98% on R/A; kd3 18:45 Body Mass Index 57.80 (148.00 kg, 160.02 cm) db ED Course: 18:40 Patient arrived in ED. sb4 18:40 Last Barrientos MD is Attending Physician. elisabet 18:45 Arm band placed on Patient placed in an exam room. db 18:56 Triage completed. db 19:07 Sarahi Mckeon, RN is Primary Nurse. kd3 19:29 XRAY Chest (1 view) In Process Unspecified. EDMS 19:52 UDS Sent. kd3 19:54 Patient has correct armband on for positive identification. kd3 20:33 Parmjit Yepez MD is Referral Physician. elisabet 20:50 Lactate w/ 2H reflex if indic. Sent. kd3 20:51 Blood Culture Adult (2) Sent. kd3 20:51 COVID-19 Ag + Flu A+B Ag Sent. kd3 20:51 Group A Streptococcus Rapid Sent. kd3 21:20 Lactate w/ 2H reflex if indic. Sent. kd3 21:52 Parmjit Yepez MD is Referral Physician. sp3 22:14 No provider procedures requiring assistance completed. IV discontinued, intact, kd3 bleeding controlled, No redness/swelling at site. Pressure dressing applied. 22:15 Provided Education on: prescriptions . kd3 Administered Medications: 19:35 CANCELLED (Duplicate Order): ns 0.9% 1000 ml IV at 1000 ml once; to be given as a bolus elisabet over 60 minutes 19:52 Drug: Aspirin PO Chewable Tablet 324 mg PO once; 81 mg tablets x 4 Route: PO; kd3 19:52 Drug: NS 0.9% IV (30 ml/kg) 30 ml/kg IV at bolus once; Sepsis Protocol; to be given as kd3 a bolus over 90 minutes Route: IV; Rate: bolus; Site: right antecubital; 21:07 Follow up: IV Status: Completed infusion; IV Intake: 1000ml kd3 21:07 Drug: Rocephin IV 2 grams IV at per protocol once; Given slow IV push per pharmarcy kd3 instructions Route: IV; Rate: per protocol; Site: right antecubital; 21:07 Drug: Acetaminophen PO 1000 mg PO once Route: PO; kd3 21:07 Drug: Amoxicillin-Clavulanate PO 875 mg PO once Route: PO; kd3 21:23 Drug: Potassium PO Effervescent Tablet 50 mEq PO once; dissolve in 4 ounces of water or kd3 juice JUST BEFORE DC Route: PO; 21:30 Drug: Potassium PO Effervescent Tablet 50 mEq PO once; dissolve in 4 ounces of water or kd3 juice Route: PO; Medication: 19:54 VIS not applicable for this client. kd3 Intake: 21:07 IV: 1000ml; Total: 1000ml. kd3 Outcome: 20:33 Discharge ordered by . elisabet 21:52 Discharge ordered by . sp3 22:14 Discharged to home via wheelchair, with friend, kd3 22:14 Condition: stable 22:14 Discharge instructions given to patient, friend, Instructed on discharge instructions, follow up and referral plans. medication usage, Demonstrated understanding of instructions, follow-up care, medications, Prescriptions given X 2, 22:15 Patient left the ED. kd3 Signatures: Dispatcher [employer] EDMS Last Barrientos MD MD cha Patel, Setul, MD MD spSarahi Geller, RN RN kd3 Lexi Fraire RN RN Luh Cárdenas, PA-C PA-C sb4
--- NOTE | 2025-01-11 20:34 | EDPHYS ---
Physician Documentation [facility] Name: Taylor Rodriguez Age: 29 yrs Sex: Female : 1995 Arrival Date: 01/11/2025 Time: 18:33 Bed 2 Private MD: ED Physician Last Barrientos HPI: 01/11 20:24 This 29 yrs old Black Female presents to ER via EMS with complaints of Chest Pain. elisabet 20:24 The patient or guardian reports chest pain that is located primarily in the anterior elisabet chest wall, bilaterally. The pain does not radiate. Associated signs and symptoms: Pertinent positives: dizziness, lower extremity swelling, lightheadedness, palpitations. The chest pain is described as aching. Severity of pain: At its worst the pain was mild in the emergency department the pain is unchanged. Historical: - Allergies: 18:45 Naproxen; db - PMHx: 18:45 Anxiety; Chronic pain; Depression; Bipolar disorder; Fibromyalgia; High Blood Pressure; db Schizophrenia; Seizure; Sleep Apnea; Asthma; - Immunization history:: Adult Immunizations unknown. - Infectious Disease History:: Denies. - Social history:: Smoking status: Reported history of juuling and/or vaping. ROS: 20:24 Eyes: Negative for injury, pain, redness, and discharge, ENT: Negative for injury, elisabet pain, and discharge, Neck: Negative for injury, pain, and swelling, Respiratory: Negative for shortness of breath, cough, wheezing, and pleuritic chest pain, Abdomen/GI: Negative for abdominal pain, nausea, vomiting, diarrhea, and constipation, Back: Negative for injury and pain, : Negative for injury, bleeding, discharge, and swelling, MS/Extremity: Negative for injury and deformity, Skin: Negative for injury, rash, and discoloration, Neuro: Negative for headache, weakness, numbness, tingling, and seizure, Psych: Negative for depression, anxiety, suicide ideation, homicidal ideation, and hallucinations, Allergy/Immunology: Negative for hives, rash, and allergies, Endocrine: Negative for neck swelling, polydipsia, polyuria, polyphagia, and marked weight changes, Hematologic/Lymphatic: Negative for swollen nodes, abnormal bleeding, and unusual bruising, 20:24 Constitutional: Positive for body aches, chills, fatigue, fever, 20:24 Cardiovascular: Positive for palpitations, 20:24 Respiratory: Positive for cough, with no reported sputum, 20:24 MS/extremity: Negative for acute changes, Exam: 20:24 Head/Face: Normocephalic, atraumatic. Eyes: Pupils equal round and reactive to light, elisabet extra-ocular motions intact. Lids and lashes normal. Conjunctiva and sclera are non-icteric and not injected. Cornea within normal limits. Periorbital areas with no swelling, redness, or edema. ENT: Nares patent. No nasal discharge, no septal abnormalities noted. Tympanic membranes are normal and external auditory canals are clear. Oropharynx with no redness, swelling, or masses, exudates, or evidence of obstruction, uvula midline. Mucous membranes moist. Neck: Trachea midline, no thyromegaly or masses palpated, and no cervical lymphadenopathy. Supple, full range of motion without nuchal rigidity, or vertebral point tenderness. No Meningismus. Chest/axilla: Normal chest wall appearance and motion. Nontender with no deformity. No lesions are appreciated. Cardiovascular: Regular rate and rhythm with a normal S1 and S2. No gallops, murmurs, or rubs. Normal PMI, no JVD. No pulse deficits. Respiratory: Lungs have equal breath sounds bilaterally, clear to auscultation and percussion. No rales, rhonchi or wheezes noted. No increased work of breathing, no retractions or nasal flaring. Abdomen/GI: Soft, non-tender, with normal bowel sounds. No distension or tympany. No guarding or rebound. No evidence of tenderness throughout. Back: No spinal tenderness. No costovertebral tenderness. Full range of motion. Skin: Warm, dry with normal turgor. Normal color with no rashes, no lesions, and no evidence of cellulitis. MS/ Extremity: Pulses equal, no cyanosis. Neurovascular intact. Full, normal range of motion., bilateral aka Neuro: Awake and alert, GCS 15, oriented to person, place, time, and situation. Cranial nerves II-XII grossly intact. Motor strength 5/5 in all extremities. Sensory grossly intact. Cerebellar exam normal. Normal gait. Psych: Awake, alert, with orientation to person, place and time. Behavior, mood, and affect are within normal limits. 20:24 Constitutional: The patient appears febrile, 20:24 ECG was reviewed by the Attending Physician. Vital Signs: 18:45 BP 125 / 70; Pulse 118; Resp 22; Temp 99.1(O); Pulse Ox 97% on R/A; Weight 148 kg; db Height 5 ft. 3 in. ; 19:53 BP 98 / 76; Pulse 106; Resp 20; Pulse Ox 97% on R/A; kd3 20:51 BP 109 / 88; Pulse 95; Resp 16; Pulse Ox 99% on R/A; kd3 21:30 BP 115 / 82; Pulse 97; Resp 19; Pulse Ox 97% on R/A; kd3 22:15 BP 128 / 82; Pulse 72; Resp 19; Pulse Ox 98% on R/A; kd3 18:45 Body Mass Index 57.80 (148.00 kg, 160.02 cm) db MDM: 18:40 Medical Screening Exam initiated elisabet 20:27 Differential diagnosis: abnormal EKG, acute myocardial infarction, acute pericarditis, elisabet anxiety, chest wall pain, Cholelithiasis viral Infection, bacterial infection, URI, bronchitis, pneumonia UTI, gastroenteritis, meningitis, gastritis, pancreatitis, peptic ulcer disease, pericarditis, pneumonia, pulmonary embolus, stable angina, thoracic aortic disection, unstable angina. Differential Diagnosis altered mental status, sepsis, flu, Obstructed Airway Bronchitis Influenza Upper Respiratory Infection Sinusitis Pharyngitis Otitis Media Allergic Rhinitis Asthma Exacerbation Viral Syndrome Pneumonia Tracheal Injury. HEART Score: History: Slightly Suspicious (0), ECG: Non specific repolarization disturbance / LBTB / PM (1), Age: < or = 45 years (0), Risk Factors: 1 or 2 risk factors (1), [Hypertension] [+ Family HX] Troponin: < or = 1 x Normal Limit (0). TORSTEN Risk Score: TOTAL SCORE = 0. Data reviewed: vital signs, nurses notes, EMS record, lab test result(s), EKG, radiologic studies, plain films. Consideration of Admission/Observation Escalation of care including admission/observation considered. I considered the following discharge prescriptions or medication management in the emergency department Medications were administered in the Emergency Department. See MAR. Independent interpretation of the following test(s) in the Emergency Department EKG: See my EKG interpretation above. Test considered but Not performed: Ultrasound NO 2 D ECHO. Care significantly affected by the following chronic conditions: Hypertension, Obesity, ANXIETY , SCHIZO, FIBROMYALGIA, BIPOLAR. 01/11 18:41 Order name: Basic Metabolic Panel; Complete Time: 20:18 [facility] 01/11 18:41 Order name: CBC with Diff; Complete Time: 19:58 [facility] 01/11 18:41 Order name: D-Dimer; Complete Time: 19:58 [facility] 01/11 18:41 Order name: LFT's; Complete Time: 20:18 [facility] 01/11 18:41 Order name: Magnesium; Complete Time: 20:18 [facility] 01/11 18:41 Order name: NT PRO-BNP; Complete Time: 20:18 elisabet 01/11 18:41 Order name: PT-INR; Complete Time: 19:58 [facility] 01/11 18:41 Order name: Troponin HS; Complete Time: 20:18 [facility] 01/11 18:41 Order name: Lipase; Complete Time: 20:18 [facility] 01/11 18:41 Order name: UA Rfx Bipin Cult if indicated; Complete Time: 19:58 [facility] 01/11 18:41 Order name: UDS; Complete Time: 20:18 [facility] 01/11 19:35 Order name: Blood Culture Adult (2) elisabet 01/11 19:35 Order name: Lactate w/ 2H reflex if indic.; Complete Time: 21:55 [facility] 01/11 19:35 Order name: COVID-19 Ag + Flu A+B Ag; Complete Time: 21:55 [facility] 01/11 19:35 Order name: Group A Streptococcus Rapid; Complete Time: 21:55 [facility] 01/11 19:47 Order name: CBC Smear Scan; Complete Time: 19:58 [facility] 01/11 21:35 Order name: Throat Culture [facility] 01/11 18:41 Order name: XRAY Chest (1 view); Complete Time: 21:55 elisabet 01/11 18:41 Order name: Cardiac monitoring; Complete Time: 19:52 [facility] 01/11 18:41 Order name: EKG - Nurse/Tech; Complete Time: 19:52 [facility] 01/11 18:41 Order name: IV Saline Lock; Complete Time: 19:52 [facility] 01/11 18:41 Order name: Labs collected and sent; Complete Time: 19:52 [facility] 01/11 18:41 Order name: O2 Per Protocol; Complete Time: 19:52 [facility] 01/11 18:41 Order name: O2 Sat Monitoring; Complete Time: 19:52 [facility] 01/11 20:19 Order name: PO challenge: JUICE 2 X OJ'S PLEASE; Complete Time: 21:30 elisabet EC:24 Rate is 116 beats/min. Rhythm is regular. QRS [place] is Normal. UT interval is normal. elisabet QRS interval is normal. QT interval is normal. No Q waves. T waves are Normal. No ST changes noted. Clinical impression: NSR w/ Non-specific ST/T Changes. Interpreted by me. Reviewed by me. Administered Medications: 19:35 CANCELLED (Duplicate Order): ns 0.9% 1000 ml IV at 1000 ml once; to be given as a bolus elisabet over 60 minutes 19:52 Drug: Aspirin PO Chewable Tablet 324 mg PO once; 81 mg tablets x 4 Route: PO; kd3 19:52 Drug: NS 0.9% IV (30 ml/kg) 30 ml/kg IV at bolus once; Sepsis Protocol; to be given as kd3 a bolus over 90 minutes Route: IV; Rate: bolus; Site: right antecubital; 21:07 Follow up: IV Status: Completed infusion; IV Intake: 1000ml kd3 21:07 Drug: Rocephin IV 2 grams IV at per protocol once; Given slow IV push per [employer] kd3 instructions Route: IV; Rate: per protocol; Site: right antecubital; 21:07 Drug: Acetaminophen PO 1000 mg PO once Route: PO; kd3 21:07 Drug: Amoxicillin-Clavulanate PO 875 mg PO once Route: PO; kd3 21:23 Drug: Potassium PO Effervescent Tablet 50 mEq PO once; dissolve in 4 ounces of water or kd3 juice JUST BEFORE DC Route: PO; 21:30 Drug: Potassium PO Effervescent Tablet 50 mEq PO once; dissolve in 4 ounces of water or kd3 juice Route: PO; Disposition Summary: 01/11/25 21:52 Discharge Ordered Notes: Location: Home(01/11/25 21:52) sp3 Problem: new(01/11/25 21:52) sp3 Symptoms: have improved(01/11/25 21:52) sp3 Condition: Stable(01/11/25 21:52) sp3 Diagnosis - Hypokalemia(01/11/25 21:52) sp3 - Chest pain, unspecified(01/11/25 21:52) sp3 - Fever, unspecified(01/11/25 21:52) sp3 - Cough(01/11/25 21:52) sp3 - Obesity, unspecified(01/11/25 21:52) sp3 Followup: elisabet - With: Private Physician - When: 2 - 3 days - Reason: Recheck today's complaints, Continuance of care, Re-evaluation by your physician Followup: elisabet - With: Parmjit Yepez MD - When: 2 - 3 days - Reason: Recheck today's complaints, Re-evaluation by your physician Discharge Instructions: - Discharge Summary Sheet elisabet - Nonspecific Chest Pain, Adult elisabet - Chest Wall Pain elisabet - Potassium Content of Foods elisabet - Fever, Adult elisabet - Obesity, Adult elisabet - Urinary Tract Infection, Adult elisabet - Urinary Tract Infection, Adult, [id number] elisabet - Aspirin and Your Heart elisabet - Fever, Adult, [id number] elisabet Forms: - Medication Reconciliation Form sp3 - Antibiotic Education sp3 - Prescription Opioid Use sp3 - Patient Portal Instructions sp3 - Leadership Thank You Letter sp3 Prescriptions: - Augmentin 875-125 mg Oral Tablet - take 1 tablet ORAL route every 12 hours for 10 days; 20 tablet; Refills: 0, elisabet Product Selection Permitted - Potassium Chloride 20 meq Oral Packet - take 1 packet ORAL route once daily 1 packet in 6 (six) ounces of water or elisabet juice; Take after meal; 10 packet; Refills: 0, Product Selection Permitted Signatures: Dispatcher [employer] Last Watson MD MD cha Patel, Setul, MD MD sp3 Sarahi Mckeon RN RN kd3 Lexi Fraire RN RN db Corrections: (The following items were deleted from the chart) 18:42 18:42 BASIC METABOLIC PANEL+C.LAB.BRZ ordered. EDMS EDMS 18:42 18:42 CBC+H.LAB.BRZ ordered. EDMS EDMS 18:42 18:42 D-DIMER+COAG.LAB.BRZ ordered. EDMS EDMS 18:42 18:42 HEPATIC FUNCTION+C.LAB.BRZ ordered. EDMS EDMS 18:42 18:42 MAGNESIUM+C.LAB.BRZ ordered. EDMS EDMS 18:42 18:42 PROBNP+C.LAB.BRZ ordered. EDMS EDMS 18:42 18:42 PROTIME (+INR)+COAG.LAB.BRZ ordered. EDMS EDMS 18:42 18:42 Troponin High Sensitivity+C.LAB.BRZ ordered. EDMS EDMS 18:42 18:42 LIPASE+C.LAB.BRZ ordered. EDMS EDMS 18:42 18:42 UA Rfx Bipin Cult if indicated+U.LAB.BRZ ordered. EDMS EDMS 18:42 18:42 URINE DRUG SCREEN+UC.LAB.BRZ ordered. EDMS EDMS 19:35 18:41 NS 0.9% IV 1000 ml IV at 1000 ml once; to be given as a bolus over 60 minutes elisabet ordered. elisabet 19:35 19:35 BLOOD CULTURE*+BA.LAB.BRZ ordered. EDMS EDMS 19:35 19:35 LACTATE+C.LAB.BRZ ordered. EDMS EDMS 19:36 19:36 COVID-19 Ag + Flu A+B Ag+I.LAB.BRZ ordered. EDMS EDMS 19:36 19:36 Group A Streptococcus Rapid Sc+I.LAB.BRZ ordered. EDMS EDMS 20:42 20:33 Home elisabet elisabet 20:42 20:33 new elisabet elisabet 20:42 20:33 have improved [facility] elisabet 20:42 20:33 Stable [facility] elisabet 20:42 20:33 Hypokalemia [facility] elisabet 20:42 20:33 Chest pain, unspecified [facility] elisabet 20:42 20:33 Fever, unspecified [facility] elisabet 20:42 20:33 Cough [facility] elisabet 20:42 20:33 Obesity, unspecified [facility]
[2025-01-11] MEDS ORDERED: ACETAMINOPHEN 500 MG TAB ONE (20:55)
[2025-01-11] MEDS ORDERED: NA CHLORIDE 0.9% 3,000 ML ONE (20:55)
[2025-01-11] MEDS ORDERED: AMOX/K CLAV 875 MG TAB ONE (20:55)
[2025-01-11] MEDS ORDERED: CEFTRIAXONE 2000 MG/VIAL ONE (20:55)
[2025-01-11] MEDS ORDERED: POTASSIUM 25 MEQ EFFERV TAB ONE (21:00)
[2025-01-11 21:33] LABS: Influenza A Ag Negative; Influenza B Ag Negative; SARS-CoV-2 Antigen Rapid Res Negative (Negative)
[2025-01-11 22:22] VITALS: TEMP 99.1
[2025-01-11 22:28] VITALS: BP 128/82; O2SAT 98
--- NOTE | 2025-01-16 17:00 | EKG ---
Test Date: 2025-01-11 Test Time: 19:29:52 Lead Systems Developer: HOLLIE MEASUREMENT RESULTS: Intervals: Rate: 116 NM: 150 QRSD: 78 QT: 362 QTc: 503 Wilber: P: 35 NM: 150 QRS: 16 T: -26 INTERPRETIVE STATEMENTS: Sinus tachycardia T wave abnormality, consider inferior ischemia Abnormal ECG Compared to ECG 07/15/2024 17:23:08 T-wave abnormality now present Possible ischemia now present Sinus rhythm no longer present Electronically Signed On 01-16-25 16:52:19 CDT by Merrick Collins
== END 2025-01-11 22:15 | disposition home or self-care (01) ==
LOC: ER 18:33
DX: E87.6 Hypokalemia (principal); R50.9 Fever, unspecified; R05.9 Cough, unspecified; E66.9 Obesity, unspecified; F41.9 Anxiety disorder, unspecified; I10 Essential (primary) hypertension; Z11.52 Encounter for screening for COVID-19
CPT/HCPCS: 87040 ×2; 87070; 85025; 81001; 80048; 36415; 83735; 85610; 85379; 80076; 83605; 84484; 83690; 83880; 80307; 71045; 87428; J0696; J7030 ×2; 93005; 96365; 96375; 99284